=== PATIENT | male | born 1985 | race Caucasian/White ===

== ENCOUNTER 2018-09-28 15:48 | Emergency (ER) | payer SELFPAY ==
[2018-09-28 17:18] LABS: Absolute Lymphocytes (CBC) 0.4 K/uL (0.7-4.9); Absolute Monocytes 0.9 K/uL (0.1-1.3); Absolute Neutrophil 7.4 K/uL (1.8-8.0); Basophils % 0.7 % (0-1.3); Hematocrit 48.7 % (39.6-49.0); Lymphocytes % 4.4 % (15.3-44.8); MPV 7.5 fL (7.6-11.3); RBC Red Blood Cell Count 4.84 M/uL (4.33-5.43)
[2018-09-28] MEDS ORDERED: NA CHLORIDE 0.9% 1,000 ML ONE ×3 (17:19→22:07)
[2018-09-28] MEDS ORDERED: ONDANSETRON 4 MG/2 ML VIAL ONE (17:19)
[2018-09-28] MEDS ORDERED: MORPHINE 4 MG/ML SYR ONE ×2 (17:19→18:27)
[2018-09-28 17:41] LABS: ALT/SGPT 230 U/L (12-78); AST/SGOT 254 U/L (15-37); Albumin 4.4 g/dL (3.4-5.0); Alkaline Phosphatase 180 U/L (45-117); BUN Blood Urea Nitrogen 10 mg/dL (7-18); Bicarbonate 22 mmol/L (21-32); Bilirubin Direct 0.5 mg/dL (0-0.2); Bilirubin Total 1.2 mg/dL (0.2-1.0); Glucose Level 102 mg/dL (74-106); Lipase 17357 U/L (73-393); Protein, Total 8.4 g/dL (6.4-8.2); Sodium Level 137 mmol/L (136-145)
[2018-09-28 17:50] LABS: Potassium 2.9 mmol/L (3.5-5.1)
[2018-09-28] MEDS ORDERED: KCL 20 MEQ/100 mL IVPB 20 MEQ/100 ML BAG IV ONE (18:20)
[2018-09-28] MEDS ORDERED: PROMETHAZINE 25 MG/ML VIAL ONE (18:26)
[2018-09-28] MEDS ORDERED: LORazepam 2 MG/ML VIAL ONE ×5 (19:29→23:58)
[2018-09-28] MEDS ORDERED: NICOTINE 21 MG/PAT TD ONE (19:46)
--- NOTE | 2018-09-28 20:45 | RAD REPORT ---
EXAM DESCRIPTION: CTAbdomen Pelvis W Contrast - 09/28/2018 8:37 pm CLINICAL HISTORY: Abdominal pain. ABD PAIN COMPARISON: No comparisons TECHNIQUE: Biphasic CT imaging of the abdomen and pelvis was performed with 100 ml non-ionic IV cont rast. All CT scans are performed using dose optimization technique as appropriate and may include automated exposure control or mA/KV adjustment according to patient size. FINDINGS: The lung bases are clear.Small hiatal hernia is present. Prominent advanced fatty liver is seen with hepatomegaly. The spleen, adrenal glands and kidneys are within normal limits. Moderate inflammatory changes and edema seen involving the pancreas most compat ible with acute pancreatitis. No portal venous thrombus, pancreatic necrosis or evidence pancreatic p seudocyst. No bowel obstruction, free air or abscess. Mild ascites is seen. The appendix is normal. No evidence of significant lymphadenopathy. No suspicious bony findings. IMPRESSION: Moderately severe acute pancreatitis. No complication is seen. Hepatomegaly with advanced fatty liver.
--- NOTE | 2018-09-28 20:50 | EDPHYS ---
Physician Documentation [facility] Name: Jonathan Gutierrez Age: 32 yrs Sex: Male : 1985 Arrival Date: 09/28/2018 Time: 15:53 Bed 26 Private MD: None, None ED Physician Trenton Lubin HPI: 09/28 17:30 This 32 yrs old Male presents to ER via Ambulatory with complaints of pm1 Abdominal Pain. 17:30 The patient presents with abdominal pain in the periumbilical area. Onset: The pm1 symptoms/episode began/occurred this morning. The symptoms do not radiate. Associated signs and symptoms: Pertinent positives: nausea, vomiting, and diarrhea, Pertinent negatives: chest pain, dysuria, fever, shortness of breath. The symptoms are described as crampy, sharp. Modifying factors: The symptoms are alleviated by nothing, the symptoms are aggravated by nothing. Severity of pain: in the emergency department the pain is actually worse. The patient has not experienced similar symptoms in the past. The patient has not recently seen a physician. Historical: - Allergies: 16:37 No Known Allergies; aa5 - Home Meds: 16:37 None [Active]; aa5 - PMHx: 16:37 None; aa5 - PSHx: 16:37 None; aa5 - Immunization history:: Flu vaccine is not up to date. - Social history:: Smoking status: Patient uses tobacco products, smokes one pack cigarettes per day. - Ebola Screening: : No symptoms or risks identified at this time. ROS: 18:30 Constitutional: Negative for fever, chills, and weight loss, Eyes: Negative for injury, pm1 pain, redness, and discharge, ENT: Negative for injury, pain, and discharge, Neck: Negative for injury, pain, and swelling, Cardiovascular: Negative for chest pain, palpitations, and edema, Respiratory: Negative for shortness of breath, cough, wheezing, and pleuritic chest pain. 18:30 Back: Negative for injury and pain, : Negative for injury, bleeding, discharge, and swelling, MS/Extremity: Negative for injury and deformity, Skin: Negative for injury, rash, and discoloration, Neuro: Negative for headache, weakness, numbness, tingling, and seizure. 18:30 Abdomen/GI: Positive for abdominal pain, nausea, vomiting, and diarrhea, Negative for hematemesis, rectal bleeding. Exam: 18:30 Constitutional: This is a well developed, well nourished patient who is awake, alert, pm1 and in no acute distress. Head/Face: Normocephalic, atraumatic. Eyes: Pupils equal round and reactive to light, extra-ocular motions intact. Lids and lashes normal. Conjunctiva and sclera are non-icteric and not injected. Cornea within normal limits. Periorbital areas with no swelling, redness, or edema. ENT: Nares patent. No nasal discharge, no septal abnormalities noted. Tympanic membranes are normal and external auditory canals are clear. Oropharynx with no redness, swelling, or masses, exudates, or evidence of obstruction, uvula midline. Mucous membranes moist. Neck: Trachea midline, no thyromegaly or masses palpated, and no cervical lymphadenopathy. Supple, full range of motion without nuchal rigidity, or vertebral point tenderness. No Meningismus. Chest/axilla: Normal chest wall appearance and motion. Nontender with no deformity. No lesions are appreciated. Cardiovascular: Regular rate and rhythm with a normal S1 and S2. No gallops, murmurs, or rubs. Normal PMI, no JVD. No pulse deficits. Respiratory: Lungs have equal breath sounds bilaterally, clear to auscultation and percussion. No rales, rhonchi or wheezes noted. No increased work of breathing, no retractions or nasal flaring. 18:30 Back: No spinal tenderness. No costovertebral tenderness. Full range of motion. Skin: Warm, dry with normal turgor. Normal color with no rashes, no lesions, and no evidence of cellulitis. MS/ Extremity: Pulses equal, no cyanosis. Neurovascular intact. Full, normal range of motion. 18:30 Abdomen/GI: Inspection: abdomen appears normal, Bowel sounds: normal, Palpation: soft, moderate abdominal tenderness, in the right upper quadrant and left upper quadrant, mass, is not appreciated, rebound tenderness, is not appreciated. 18:30 Neuro: Orientation: is normal, Motor: is normal, moves all fours. Vital Signs: 16:37 BP 145 / 95; Pulse 126; Resp 18 S; Temp 97.1(TE); Pulse Ox 100% on R/A; Weight 70.31 kg aa5 (R); Height 5 ft. 11 in. (180.34 cm) (R); Pain 8/10; 17:51 BP 160 / 100; Pulse 100; Resp 18; Pulse Ox 98% on R/A; la1 18:27 BP 172 / 116; Pulse 107; Resp 18; Pulse Ox 98% on R/A; la1 19:40 BP 175 / 112; Pulse 113; Resp 18; Pulse Ox 98% on R/A; la1 20:33 BP 172 / 112; Pulse 117; Resp 18; Pulse Ox 98% on R/A; la1 20:50 BP 158 / 96; Pulse 123; Resp 20; Pulse Ox 98% on R/A; la1 22:12 BP 165 / 110; Pulse 133; Resp 18; Pulse Ox 100% on R/A; la1 22:19 Pulse 124; la1 23:12 BP 178 / 116; Pulse 126; Resp 18; Pulse Ox 98% on R/A; la1 09/29 00:19 BP 167 / 118; Pulse 136; Resp 24; Pulse Ox 99% on R/A; ra1 01:06 BP 160 / 115; Pulse 135; Resp 16; Pulse Ox 98% on R/A; la1 01:13 BP 163 / 117; Pulse 133; Resp 38; Pulse Ox 98% on R/A; ra1 01:45 BP 165 / 65; Pulse 138; Resp 20; Pulse Ox 98% on R/A; la1 09/28 16:37 Body Mass Index 21.62 (70.31 kg, 180.34 cm) aa MDM: 09/28 16:58 Patient medically screened. pm1 18:11 ED course: last drink of Vodka at 2100 yesterday. Has been drinking a pint of Vodka pm1 daily for the past 3-4 months. 20:48 Data reviewed: vital signs. Data interpreted: Pulse oximetry: on room air is 98 %. pm1 Interpretation: normal. Counseling: I had a detailed discussion with the patient and/or guardian regarding: the historical points, exam findings, and any diagnostic results supporting the discharge/admit diagnosis, lab results, radiology results, the need for further work-up and treatment in the hospital. 21:40 Physician consultation: Wilton Mancilla MD was called at 21:40, was contacted at 21:40, pm1 regarding patient's condition, after a discussion of the case, a recommendation for transfer for higher level of care is made, No ICU bed available and no GI butadiene converter helper. 22:19 Physician consultation: Adjustment Examiner ICU was contacted at 22:19, regarding regarding pm1 transfer, patient's condition, and will see patient. 09/28 17:03 Order name: Basic Metabolic Panel; Complete Time: 17:58 pm1 09/28 17:03 Order name: CBC with Diff; Complete Time: 17:22 pm1 09/28 17:03 Order name: Creatinine for Radiology; Complete Time: 17:44 pm1 09/28 17:03 Order name: Hepatic Function; Complete Time: 17:58 pm1 09/28 17:03 Order name: Lipase; Complete Time: 17:58 pm1 09/28 17:59 Order name: ETOH Level; Complete Time: 18:51 pm1 09/28 17:03 Order name: CT Abd/Pelvis - W/Contrast: PO and IV contrast; Complete Time: 20:48 pm1 09/28 17:03 Order name: IV Saline Lock; Complete Time: 17:13 pm1 09/28 17:03 Order name: Labs collected and sent; Complete Time: 17:13 pm1 Administered Medications: 17:13 Drug: NS 0.9% 1000 ml Route: IV; Rate: 1000 ml; Site: right antecubital; la1 19:50 Follow up: IV Status: Completed infusion la1 17:13 Drug: Zofran 4 mg Route: IVP; Site: right antecubital; la1 18:06 Follow up: Response: No adverse reaction la1 17:13 Drug: morphine 4 mg Route: IVP; Site: right antecubital; la1 18:05 Follow up: Response: No adverse reaction; Pain is decreased la1 18:25 Drug: Potassium Chloride 20 mEq Route: IV; Rate: calculated rate; Site: right la1 antecubital; 21:24 Follow up: IV Status: Completed infusion la1 18:26 Not Given (Duplicate Order): Phenergan 12.5 mg IVP once la1 18:26 Not Given (Duplicate Order): morphine 4 mg IVP once la1 18:26 Not Given (Duplicate Order): NS 0.9% 1000 ml IV at 125 ml/hr continuous la1 18:27 Drug: morphine 4 mg Route: IVP; Site: right antecubital; la1 19:51 Follow up: Response: No adverse reaction la1 18:27 Drug: Phenergan 12.5 mg Route: IVP; Site: right antecubital; la1 19:50 Follow up: Response: No adverse reaction la1 18:27 Drug: NS 0.9% 1000 ml Route: IV; Rate: 125 ml/hr; Site: right antecubital; la1 09/29 00:03 Follow up: IV Status: Infusion continued upon transfer la1 09/28 19:39 Drug: Ativan 1 mg Route: IVP; Site: left forearm; la1 19:50 Follow up: Response: No adverse reaction la1 19:40 Drug: Nicotine 21 mg/24 hr 1 patches Route: Transdermal; Site: anterior chest wall; la1 19:50 Drug: Ativan 1 mg Route: IVP; Site: left forearm; la1 19:51 Follow up: Response: No adverse reaction la1 20:40 Drug: Ativan 1 mg Route: IVP; Site: left antecubital; la1 21:25 Follow up: Response: No adverse reaction la1 21:10 Drug: Valium 5 mg Route: IVP; Site: left antecubital; la1 21:25 Follow up: Response: No adverse reaction la1 21:10 Drug: NS 0.9% 1000 ml Route: IV; Rate: 1000 ml; Site: left antecubital; la1 21:58 Follow up: IV Status: Completed infusion la1 21:23 Drug: Valium 5 mg Route: IVP; Site: left antecubital; la1 21:58 Follow up: Response: No adverse reaction la1 21:58 Drug: Ativan 2 mg Route: IVP; Site: left antecubital; la1 21:59 Follow up: Response: No adverse reaction la1 22:15 Follow up: Response: No adverse reaction; Patient is sedated ra1 22:10 Drug: Ativan 2 mg Route: IVP; Site: left antecubital; la1 09/29 00:01 Follow up: Response: No adverse reaction la1 00:01 Drug: Ativan 2 mg Route: IVP; Site: right hand; la1 00:15 Follow up: Response: No adverse reaction; Patient is sedated ra1 00:53 Drug: Ativan 2 mg Route: IVP; Site: right antecubital; fc 01:56 Follow up: Response: No adverse reaction la1 01:38 Drug: Ativan 4 mg Route: IVP; Site: right hand; la1 01:56 Follow up: Response: No adverse reaction la1 Disposition: 10:00 Co-signature as Attending Physician, Trenton Lubin MD. rn Disposition: 09/28/18 21:51 Transfer ordered to [facility]. Diagnosis are Alcohol dependence with withdrawal, Acute pancreatitis. - Reason for transfer: Higher level of care. - Accepting physician is [facility]. - Condition is Stable. - Problem is new. - Symptoms have improved. Signatures: Dispatcher [employer] EDMS Sho Jimenez RN RN Trenton Lubin MD MD rn Calderon, Audri, RN RN aa5 Charles Berger RN RN la1 Gaudencio Neely, HOT TAMALE WORKER HOT TAMALE WORKER pm1 Lyle Cortez RN ra1 Corrections: (The following items were deleted from the chart) 09/28 20:53 20:49 Hospitalization Ordered by Wilton Mancilla MD for Inpatient Admission. Preliminary pm1 diagnosis is Alcohol dependence with withdrawalAcute pancreatitis. Bed requested for Intensive Care Unit. Status is Inpatient Admission. Condition is Stable. Problem is new. Symptoms have improved. UTI on Admission? No. pm1 22:31 21:51 09/28/2018 21:51 Transfer ordered to [facility]. Diagnosis is pm1 Alcohol dependence with withdrawalAcute pancreatitis. Reason for transfer: Higher level of care. Accepting physician is [facility]. Condition is Fair. Problem is new. Symptoms have improved. pm1 09/29 01:57 09/28 22:31 09/28/2018 21:51 Transfer ordered to [facility]. la1 Diagnosis is Alcohol dependence with withdrawalAcute pancreatitis. Reason for transfer: Higher level of care. Accepting physician is [facility]. Condition is Stable. Problem is new. Symptoms have improved. pm1
--- NOTE | 2018-09-28 20:50 | ER ---
Nurse's Notes [facility] Name: Jonathan Gutierrez Age: 32 yrs Sex: Male : 1985 Arrival Date: 09/28/2018 Time: 15:53 Bed 26 Private MD: None, None Diagnosis: Acute pancreatitis;Alcohol dependence with withdrawal Presentation: 09/28 16:36 Presenting complaint: Patient states: umbilical pain with nausea/vomiting/diarrhea aa5 since this morning. Transition of care: patient was not received from another setting of care. Onset of symptoms was September 2018. Risk Assessment: Do you want to hurt yourself or someone else? Patient reports no desire to harm self or others. Initial Sepsis Screen: Does the patient meet any 2 criteria? No. Patient's initial sepsis screen is negative. Does the patient have a suspected source of infection? No. Patient's initial sepsis screen is negative. Care prior to arrival: None. 16:36 Method Of Arrival: Ambulatory aa5 16:36 Acuity: NEO 2 la1 Historical: - Allergies: 16:37 No Known Allergies; aa5 - Home Meds: 16:37 None [Active]; aa5 - PMHx: 16:37 None; aa5 - PSHx: 16:37 None; aa5 - Immunization history:: Flu vaccine is not up to date. - Social history:: Smoking status: Patient uses tobacco products, smokes one pack cigarettes per day. - Ebola Screening: : No symptoms or risks identified at this time. Screenin:15 Abuse screen: Denies threats or abuse. Nutritional screening: No deficits noted. la1 Tuberculosis screening: No symptoms or risk factors identified. Fall Risk None identified. Assessment: 17:14 General: Appears in no apparent distress. Behavior is calm, cooperative. Pain: la1 Complains of pain in abdomen. Neuro: Level of Consciousness is awake, alert, obeys commands, Oriented to person, place, time, situation. Cardiovascular: Capillary refill < 3 seconds Patient's skin is warm and dry. Respiratory: Airway is patent Respiratory effort is even, unlabored, Respiratory pattern is regular, symmetrical, Breath sounds are clear bilaterally. GI: Abdomen is round non-distended, Bowel sounds present X 4 quads. Abd is soft X 4 quads Abdomen is tender to palpation X 4 quads. Reports diarrhea, nausea, vomiting. : No signs and/or symptoms were reported regarding the genitourinary system. 18:28 Reassessment: Pt reports drinking 2-4 red solo cups full of vodka with no mixer daily la1 for the last three months, last drink was 2100 on 09/27. 19:41 Reassessment: Pt self D/C IV to right AC, was trying to go smoke, pt educated on la1 hospital policy and on his current medical condition, offered alternative of patch, pt appears agitated, shaky. ERP notified, new orders received and carried out. 20:33 Reassessment: pt having visual and auditory hallucinations, will not stay in stretcher, la1 attempting to walk around room and talking to people who are not present. 21:15 Reassessment: No changes from previously documented assessment. la1 22:00 Reassessment: Pt still agitated, hallucinating. ERP notified, new orders received and la1 carried out. 23:00 Reassessment: Pt resting in stretcher, eyes closed, respirations even and unlabored. la1 23:40 Reassessment: Pt again becoming agitated, sitting at end of bed, speech is la1 incomprehensible, pt voided x1 in stretcher. 09/29 00:40 Reassessment: Patient appears in no apparent distress at this time. resting in la1 stretcher, eyes closed, respirations even and unlabored. Vital Signs: 09/28 16:37 BP 145 / 95; Pulse 126; Resp 18 S; Temp 97.1(TE); Pulse Ox 100% on R/A; Weight 70.31 kg aa5 (R); Height 5 ft. 11 in. (180.34 cm) (R); Pain 8/10; 17:51 BP 160 / 100; Pulse 100; Resp 18; Pulse Ox 98% on R/A; la1 18:27 BP 172 / 116; Pulse 107; Resp 18; Pulse Ox 98% on R/A; la1 19:40 BP 175 / 112; Pulse 113; Resp 18; Pulse Ox 98% on R/A; la1 20:33 BP 172 / 112; Pulse 117; Resp 18; Pulse Ox 98% on R/A; la1 20:50 BP 158 / 96; Pulse 123; Resp 20; Pulse Ox 98% on R/A; la1 22:12 BP 165 / 110; Pulse 133; Resp 18; Pulse Ox 100% on R/A; la1 22:19 Pulse 124; la1 23:12 BP 178 / 116; Pulse 126; Resp 18; Pulse Ox 98% on R/A; la1 09/29 00:19 BP 167 / 118; Pulse 136; Resp 24; Pulse Ox 99% on R/A; ra1 01:06 BP 160 / 115; Pulse 135; Resp 16; Pulse Ox 98% on R/A; la1 01:13 BP 163 / 117; Pulse 133; Resp 38; Pulse Ox 98% on R/A; ra1 01:45 BP 165 / 65; Pulse 138; Resp 20; Pulse Ox 98% on R/A; la1 09/28 16:37 Body Mass Index 21.62 (70.31 kg, 180.34 cm) aa5 ED Course: 09/28 15:53 Patient arrived in ED. mr 15:53 None, None is Private Physician. mr 16:36 Triage completed. aa5 16:36 Arm band placed on. aa5 16:57 Charles Berger, AMALIA is Primary Nurse. la1 16:58 Gaudencio Neely NP is PHCP. pm1 16:58 Trenton Lubin MD is Attending Physician. pm1 17:05 Inserted saline lock: 20 gauge in right antecubital area, using aseptic technique. jp3 Blood collected. 17:05 Initial lab(s) drawn, by [facility], sent to lab. jp3 17:13 Bed in low position. Call light in reach. Side rails up X 1. Warm blanket given. Pillow jp3 given. Pulse ox on. NIBP on. 17:13 Basic Metabolic Panel Sent. jp3 17:13 CBC with Diff Sent. jp3 17:13 Creatinine for Radiology Sent. jp3 17:13 Hepatic Function Sent. jp3 17:13 Lipase Sent. jp3 20:37 CT Abd/Pelvis - W/Contrast: PO and IV contrast In Process Unspecified. EDMS 20:49 Wilton Mancilla MD is Hospitalizing Provider. pm1 09/29 01:57 No provider procedures requiring assistance completed. Patient transferred, IV remains la1 in place. Administered Medications: 09/28 17:13 Drug: NS 0.9% 1000 ml Route: IV; Rate: 1000 ml; Site: right antecubital; la1 19:50 Follow up: IV Status: Completed infusion la1 17:13 Drug: Zofran 4 mg Route: IVP; Site: right antecubital; la1 18:06 Follow up: Response: No adverse reaction la1 17:13 Drug: morphine 4 mg Route: IVP; Site: right antecubital; la1 18:05 Follow up: Response: No adverse reaction; Pain is decreased la1 18:25 Drug: Potassium Chloride 20 mEq Route: IV; Rate: calculated rate; Site: right la1 antecubital; 21:24 Follow up: IV Status: Completed infusion la1 18:26 Not Given (Duplicate Order): Phenergan 12.5 mg IVP once la1 18:26 Not Given (Duplicate Order): morphine 4 mg IVP once la1 18:26 Not Given (Duplicate Order): NS 0.9% 1000 ml IV at 125 ml/hr continuous la1 18:27 Drug: morphine 4 mg Route: IVP; Site: right antecubital; la1 19:51 Follow up: Response: No adverse reaction la1 18:27 Drug: Phenergan 12.5 mg Route: IVP; Site: right antecubital; la1 19:50 Follow up: Response: No adverse reaction la1 18:27 Drug: NS 0.9% 1000 ml Route: IV; Rate: 125 ml/hr; Site: right antecubital; la1 09/29 00:03 Follow up: IV Status: Infusion continued upon transfer la1 09/28 19:39 Drug: Ativan 1 mg Route: IVP; Site: left forearm; la1 19:50 Follow up: Response: No adverse reaction la1 19:40 Drug: Nicotine 21 mg/24 hr 1 patches Route: Transdermal; Site: anterior chest wall; la1 19:50 Drug: Ativan 1 mg Route: IVP; Site: left forearm; la1 19:51 Follow up: Response: No adverse reaction la1 20:40 Drug: Ativan 1 mg Route: IVP; Site: left antecubital; la1 21:25 Follow up: Response: No adverse reaction la1 21:10 Drug: Valium 5 mg Route: IVP; Site: left antecubital; la1 21:25 Follow up: Response: No adverse reaction la1 21:10 Drug: NS 0.9% 1000 ml Route: IV; Rate: 1000 ml; Site: left antecubital; la1 21:58 Follow up: IV Status: Completed infusion la1 21:23 Drug: Valium 5 mg Route: IVP; Site: left antecubital; la1 21:58 Follow up: Response: No adverse reaction la1 21:58 Drug: Ativan 2 mg Route: IVP; Site: left antecubital; la1 21:59 Follow up: Response: No adverse reaction la1 22:15 Follow up: Response: No adverse reaction; Patient is sedated ra1 22:10 Drug: Ativan 2 mg Route: IVP; Site: left antecubital; la1 09/29 00:01 Follow up: Response: No adverse reaction la1 00:01 Drug: Ativan 2 mg Route: IVP; Site: right hand; la1 00:15 Follow up: Response: No adverse reaction; Patient is sedated ra1 00:53 Drug: Ativan 2 mg Route: IVP; Site: right antecubital; fc 01:56 Follow up: Response: No adverse reaction la1 01:38 Drug: Ativan 4 mg Route: IVP; Site: right hand; la1 01:56 Follow up: Response: No adverse reaction la1 Outcome: 09/28 20:49 Decision to Hospitalize by Provider. pm1 21:51 ER care complete, transfer ordered by MD. pm1 09/29 01:57 Transferred Transfer form completed. X-rays sent w/ patient. la1 Condition: stable Instructed on the need for transfer. 01:57 Patient left the ED. la1 Signatures: Dispatcher [employer] RACHEAL MaldoandoMarilu granda mr JimenezSho RN RN fc Calderon, Audri, RN RN aa5 Charles Berger RN RN la1 Gaudencio Neely, BUSINESS OPERATIONS CONSULTANT BUSINESS OPERATIONS CONSULTANT pm1 Jose Luis Chandler jp3 Lyle Cortez RN RN ra1 Corrections: (The following items were deleted from the chart) 09/28 18:27 16:36 Acuity: NEO 3 aa5 la1 20:51 20:50 BP 158 / 96; Pulse 133bpm; Resp 20bpm; Pulse Ox 98% RA; la1 la1
[2018-09-28] MEDS ORDERED: DIAZEPAM 10 MG/2 ML INJ SYRINGE ONE (21:13)
[2018-09-29] MEDS ORDERED: LORazepam 2 MG/ML VIAL ONE ×2 (01:01→01:37)
[2018-09-29 02:16] VITALS: TEMP 97.1
[2018-09-29 02:33] VITALS: O2SAT 98
[2018-09-29 02:36] VITALS: BP 165/65
== END 2018-09-29 01:57 | disposition short-term general hospital (02) ==
LOC: ER 15:48
DX: F10.239 Alcohol dependence with withdrawal, unspecified (principal); K85.90 Acute pancreatitis without necrosis or infection, unspecified; F17.210 Nicotine dependence, cigarettes, uncomplicated
CPT/HCPCS: 36415; 74177; 80048; 80076; 80320; 83690; 85025; 99285; J2405; J2550; J3360; J7030; Q9967

== ENCOUNTER 2018-10-27 16:19 | Emergency (ER) | payer SELFPAY ==
--- OUTSIDE RECORDS SUMMARY | 2018-10-27 16:22 | XMS REPORT | Clinical Summary ---
:1985 Author Organization [facility] Address [address] [place] [address] Care Team Providers Name Role Phone Pcp, No Primary Care Provider Unavailable Allergies No Known Allergies Medications Medication Sig Dispensed Refills Start Date End Date Status lisinopril Take 1 tablet 30 tablet 0 10/03/2018 11/02/2018 Active (PRINIVIL,ZESTRIL) (20 mg total) 20 MG tablet by mouth daily for 30 days. multivitamin Take 1 tablet 30 tablet 0 10/03/2018 11/02/2018 Active (THERAGRAN) tablet by mouth daily for 30 days. thiamine 100 MG Take 1 tablet 30 tablet 0 10/03/2018 10/03/2019 Active tablet (100 mg total) by mouth daily. folic acid Take 1 tablet 30 tablet 0 10/03/2018 11/02/2018 Active (FOLVITE) 1 MG (1 mg total) tablet by mouth daily for 30 days. LORazepam (ATIVAN) Take 1 tablet 5 tablet 0 10/02/2018 Active 0.5 MG tablet (0.5 mg total) by mouth every 6 (six) hours as needed for Anxiety. Max Daily Amount: 2 mg LORazepam (ATIVAN) Take 1 tablet 30 tablet 0 10/02/2018 10/02/2018 Discontinued 0.5 MG tablet (0.5 mg total) by mouth every 6 (six) hours as needed for Anxiety for up to 5 days. Max Daily Amount: 2 mg Active Problems Problem Noted Date Uncontrolled hypertension 10/02/2018 Alcohol withdrawal 09/29/2018 Alcohol-induced acute pancreatitis 09/29/2018 Acute metabolic encephalopathy 09/29/2018 Encounters Date Type Specialty Care Team Description 09/29/2018 - Hospital General Internal Valarie Cannon MD Alcohol withdrawal syndrome, with delirium (HCC); 10/02/2018 Encounter Medicine Jonathan Mccurdy Alcohol-induced acute pancreatitis, unspecified complication status; MD Natacha Acute metabolic encephalopathy; Maribeth Whalen MD Colitis; Acute alcoholic hepatitis; Alcohol-induced acute pancreatitis without infection or necrosis; Electrolyte disturbance; Essential hypertension; Uncontrolled hypertension 09/29/2018 Orders Only General Internal Medicine after 10/26/2017 Social History Tobacco Use Types Packs/Day Years Used Date Never Assessed Sex Assigned at Date Recorded Not on file Job Start Date Occupation Industry Not on file Not on file Not on file Travel History Travel Start Travel End No recent travel history available. Last Filed Vital Signs Vital Sign Reading Time Taken Blood Pressure 143/95 10/02/2018 2:13 PM CDT Pulse 99 10/02/2018 2:13 PM CDT Temperature 36.3 C (97.4 F) 10/02/2018 2:13 PM CDT Respiratory Rate 16 10/02/2018 2:13 PM CDT Oxygen Saturation 100% 10/02/2018 2:13 PM CDT Inhaled Oxygen Concentration - - Weight 70.2 kg (154 lb 12.2 oz) 10/02/2018 6:00 AM CDT Height 182.9 cm (6') 09/29/2018 2:48 AM CDT Body Mass Index 20.99 10/02/2018 6:00 AM CDT Plan of Treatment Not on file Procedures Procedure Name Priority Date/Time Associated Comments Diagnosis RHYTHM STRIP - SCAN 10/03/2018 1:41 PM CDT POCT-GLUCOSE METER Routine 10/02/2018 12:12 Results for this PM CDT procedure are in the results section. CBC W/PLT COUNT & AUTO Routine 10/02/2018 4:57 Results for this DIFFERENTIAL AM CDT procedure are in the results section. MAGNESIUM Routine 10/02/2018 4:57 Results for this AM CDT procedure are in the results section. COMPREHENSIVE Routine 10/02/2018 4:57 Results for this METABOLIC PANEL AM CDT procedure are in the results section. CBC W/PLT COUNT & AUTO Routine 10/02/2018 4:57 Results for this DIFFERENTIAL AM CDT procedure are in the results section. POCT-GLUCOSE METER Routine 2018 11:52 Results for this AM CDT procedure are in the results section. CBC W/PLT COUNT & AUTO Routine 2018 4:59 Results for this DIFFERENTIAL AM CDT procedure are in the results section. LACTIC ACID, VENOUS Routine 2018 4:59 Results for this AM CDT procedure are in the results section. PHOSPHORUS Routine 2018 4:59 Results for this AM CDT procedure are in the results section. MAGNESIUM Routine 2018 4:59 Results for this AM CDT procedure are in the results section. COMPREHENSIVE Routine 2018 4:59 Results for this METABOLIC PANEL AM CDT procedure are in the results section. CBC W/PLT COUNT & AUTO Routine 2018 4:59 Results for this DIFFERENTIAL AM CDT procedure are in the results section. POCT-GLUCOSE METER Routine 09/30/2018 6:23 Results for this PM CDT procedure are in the results section. PHOSPHORUS Routine 09/30/2018 5:18 Results for this PM CDT procedure are in the results section. MAGNESIUM Routine 09/30/2018 5:18 Results for this PM CDT procedure are in the results section. BASIC METABOLIC PANEL Routine 09/30/2018 5:18 Results for this (7) PM CDT procedure are in the results section. BASIC METABOLIC PANEL Routine 09/30/2018 4:22 Results for this (7) PM CDT procedure are in the results section. PHOSPHORUS Routine 09/30/2018 4:22 Results for this PM CDT procedure are in the results section. MAGNESIUM Routine 09/30/2018 4:22 Results for this PM CDT procedure are in the results section. POCT-GLUCOSE METER Routine 09/30/2018 12:40 Results for this PM CDT procedure are in the results section. POCT-GLUCOSE METER Routine 09/30/2018 6:26 Results for this AM CDT procedure are in the results section. PHOSPHORUS Routine 09/30/2018 6:23 Results for this AM CDT procedure are in the results section. MAGNESIUM Routine 09/30/2018 6:23 Results for this AM CDT procedure are in the results section. COMPREHENSIVE Routine 09/30/2018 6:23 Results for this METABOLIC PANEL AM CDT procedure are in the results section. US ABDOMEN LIMITED Routine 09/30/2018 5:40 Results for this AM CDT procedure are in the results section. CBC W/PLT COUNT & AUTO Routine 09/30/2018 3:50 Results for this DIFFERENTIAL AM CDT procedure are in the results section. LACTIC ACID, VENOUS STAT 09/30/2018 3:50 Results for this AM CDT procedure are in the results section. CBC W/PLT COUNT & AUTO Routine 09/30/2018 3:50 Results for this DIFFERENTIAL AM CDT procedure are in the results section. POCT-GLUCOSE METER Routine 09/30/2018 12:14 Results for this AM CDT procedure are in the results section. PROCALCITONIN STAT 09/30/2018 12:14 Results for this AM CDT procedure are in the results section. LACTIC ACID, VENOUS STAT 09/30/2018 12:14 Results for this AM CDT procedure are in the results section. MAGNESIUM STAT 09/30/2018 12:14 Results for this AM CDT procedure are in the results section. BASIC METABOLIC PANEL STAT 09/30/2018 12:14 Results for this (7) AM CDT procedure are in the results section. POCT-GLUCOSE METER Routine 09/29/2018 6:21 Results for this PM CDT procedure are in the results section. MAGNESIUM STAT 09/29/2018 2:14 Results for this PM CDT procedure are in the results section. POTASSIUM Routine 09/29/2018 2:14 Results for this PM CDT procedure are in the results section. CT ABDOMEN/PELVIS STAT 09/29/2018 12:30 Results for this WITH/WITHOUT IV PM CDT procedure are in CONTRAST the results section. POCT-GLUCOSE METER Routine 09/29/2018 11:41 Results for this AM CDT procedure are in the results section. CBC W/PLT COUNT & AUTO Routine 09/29/2018 3:51 Results for this DIFFERENTIAL AM CDT procedure are in the results section. TRIGLYCERIDES CRYSTAL 09/29/2018 3:51 Results for this AM CDT procedure are in the results section. LIPASE Routine 09/29/2018 3:51 Results for this AM CDT procedure are in the results section. PHOSPHORUS Routine 09/29/2018 3:51 Results for this AM CDT procedure are in the results section. MAGNESIUM Routine 09/29/2018 3:51 Results for this AM CDT procedure are in the results section. COMPREHENSIVE Routine 09/29/2018 3:51 Results for this METABOLIC PANEL AM CDT procedure are in the results section. PROTHROMBIN TIME/INR Routine 09/29/2018 3:51 Results for this AM CDT procedure are in the results section. CBC W/PLT COUNT & AUTO Routine 09/29/2018 3:51 Results for this DIFFERENTIAL AM CDT procedure are in the results section. ECG 12-LEAD Routine 09/29/2018 3:45 AM CDT Procedure Note - Interface, External Ris In - 09/29/2018 6:57 AM CDT Ventricular Rate 155 BPM Atrial Rate 155 BPM P-R Interval 120 ms QRS Duration 88 ms Q-T Interval 326 ms QTC Calculation(Bazett) 523 ms P [place] 60 degrees R [place] 81 degrees T [place] 13 degrees Sinus tachycardia Cannot rule out Anterior infarct , age undetermined T wave abnormality, consider inferolateral ischemia Abnormal ECG No previous ECGs available ECG 12-LEAD Routine 09/29/2018 3:45 AM CDT after 10/26/2017 Results RHYTHM STRIP - SCAN (10/03/2018 1:41 PM CDT) Narrative Performed At POC-Glucose meter (10/02/2018 12:12 PM CDT)Only the most recent of8 resultswithin the time period is included. POC-Glucose Meter 99Comment: TESTED AT 70 - 110 mg/dL [facility] [address] [facility] [id number] Specimen Blood Performing Organization Address City/State/Zipcode Phone Number [address] [address] CENTER CBC with platelet count + automated diff (10/02/2018 4:57 AM CDT)Only the most recent of4 resultswithin the time period is included. WBC 5.1 3.5 - 10.5 K/L [facility] RBC 3.81 (L) 4.63 - 6.08 M/L [facility] Hemoglobin 13.1 (L) 13.7 - 17.5 GM/DL [facility] Hematocrit 37.6 (L) 40.1 - 51.0 % [facility] MCV 98.7 (H) 79.0 - 92.2 fL [facility] MCH 34.4 (H) 25.7 - 32.2 pg [facility] MCHC 34.8 32.3 - 36.5 GM/DL [facility] RDW 11.5 (L) 11.6 - 14.4 % [facility] Platelets 152 150 - 450 K/CU MM [facility] MPV 10.2 9.4 - 12.4 fL [facility] nRBC 0 0 - 0 /100 WBC [facility] % Neutros 71 % [facility] % Lymphs 14 % [facility] % Monos 11 % [facility] % Eos 2 % [facility] % Baso 1 % [facility] # Neutros 3.66 1.78 - 5.38 K/L [facility] # Lymphs 0.71 (L) 1.32 - 3.57 K/L [facility] # Monos 0.58 0.30 - 0.82 K/L [facility] # Eos 0.10 0.04 - 0.54 K/L [facility] # Baso 0.04 0.01 - 0.08 K/L [facility] Immature Granulocytes-Relative 1 0 - 1 % [facility] Specimen Blood - Arm, Right Performing Organization Address City/State/Zipcode Phone Number [facility] [address] [place] [address] CENTER Magnesium (10/02/2018 4:57 AM CDT)Only the most recent of8 resultswithin the time period is included. Magnesium 1.8 1.6 - 2.6 mg/dL [facility] Specimen Blood - Arm, Right Performing Organization Address City/State/Zipcode Phone Number [facility] [address] [place] [address] [phone] CENTER Comprehensive metabolic panel (10/02/2018 4:57 AM CDT)Only the most recent of4 resultswithin the time period is included. Protein, Total 6.6 6.0 - 8.3 gm/dL [facility] Albumin 3.6 3.5 - 5.0 g/dL [facility] Alkaline Phosphatase 149 40 - 150 U/L [facility] Total Bilirubin 0.8 0.2 - 1.2 mg/dL [facility] Sodium 135 (L) 136 - 145 meq/L [facility] Potassium 3.6 3.5 - 5.1 meq/L [facility] Chloride 98 98 - 107 meq/L [facility] CO2 26 22 - 29 meq/L [facility] BUN 8 7 - 21 mg/dL [facility] Creatinine 0.57 0.57 - 1.25 mg/dL [facility] Glucose 100 70 - 105 mg/dL [facility] Calcium 9.5 8.4 - 10.2 mg/dL [facility] AST 155 (H) 5 - 34 U/L [facility] ALT 151 (H) 6 - 55 U/L [facility] EGFR 166Comment: ESTIMATED mL/min/1.73 sq m [facility] GFR IS NOT ACCURATE [facility] CREATININE CLEARANCE IN PREDICTING GLOMERULAR FILTRATION RATE. ESTIMATED GFR IS NOT APPLICABLE FOR DIALYSIS PATIENTS. Specimen Blood - Arm, Right Performing Organization Address City/State/Zipcode Phone Number [facility] [address] [place], [place] [id number] [phone] CENTER Lactic acid, venous, Daily (2018 4:59 AM CDT)Only the most recent of3 resultswithin the time period is included. Lactate, Venous 1.0 0.5 - 2.2 mmol/L [facility] Specimen Blood Performing Organization Address City/[facility]/Zipcode Phone Number [address] [address] [place] Phosphorus (2018 4:59 AM CDT)Only the most recent of5 resultswithin the time period is included. Phosphorus 2.3 2.3 - 4.7 mg/dL [facility] Specimen Blood Performing Organization Address [facility] Centercode Phone Number [address] [address] [place] Basic Metabolic Panel (09/30/2018 5:18 PM CDT)Only the most recent of3 resultswithin the time period is included. Sodium 137 136 - 145 meq/L [facility] Potassium 3.6 3.5 - 5.1 meq/L [facility] Chloride 102 98 - 107 meq/L [facility] CO2 26 22 - 29 meq/L [facility] BUN 4 (L) 7 - 21 mg/dL [facility] Creatinine 0.54 (L) 0.57 - 1.25 mg/dL [facility] Glucose 123 (H) 70 - 105 mg/dL [facility] Calcium 8.7 8.4 - 10.2 mg/dL [facility] EGFR 177Comment: ESTIMATED GFR IS mL/min/1.73 sq m [facility] NOT ACCURATE [facility] CLEARANCE IN PREDICTING GLOMERULAR FILTRATION RATE. ESTIMATED GFR IS NOT APPLICABLE FOR DIALYSIS PATIENTS. Specimen Blood - Arm, Right Performing Organization Address [facility] Centercode Phone Number [address] [address] [place] US abdomen limited (09/30/2018 5:40 AM CDT) Narrative Performed At FINAL REPORT [facility] Right upper quadrant abdominal ultrasound, 09/30/2018. History: Cirrhosis. Comparison: No ultrasound comparisons available for review. Comparison is made to CT dated yesterday. Discussion: Transverse and longitudinal images of the right upper quadrant of the abdomen were obtained. The liver is enlarged measuring 22 cm in length along the right midclavicular line. There is increased echogenicity of the liver. There is no evidence of a focal hepatic mass. The portal vein is patent with hepatopetal flow. The portal vein is increased in diameter measuring 15 mm. The biliary tree is within normal limits with the common bile duct measuring 6 mm in diameter. The gallbladder does not contain gallstones. There is a trace amount of pericholecystic fluid. The sonographic Carreon's sign was negative. The right kidney is normal in size and echogenicity without evidence of hydronephrosis, stones, or mass and measures 11.5 cm in length. The pancreas is obscured by bowel gas.There is no evidence of free fluid. IMPRESSION: 1. Hepatomegaly with hepatic steatosis. 2. Trace pericholecystic fluid which is likely related to pancreatitis. 3. Mild prominence of the portal vein measuring up to 15 mm in diameter which may be secondary to portal hypertension. Signed: Juan Ramos MD Report Verified Date/Time:09/30/2018 08:05:48 Reading Location: [address] Ultrasound Reading Room Procedure Note Interface, External Ris In - 09/30/2018 8:08 AM CDT FINAL REPORT Right upper quadrant abdominal ultrasound, 09/30/2018. History: Cirrhosis. Comparison: No ultrasound comparisons available for review. Comparison is made to CT dated yesterday. Discussion: Transverse and longitudinal images of the right upper quadrant of the abdomen were obtained. The liver is enlarged measuring 22 cm in length along the right midclavicular line. There is increased echogenicity of the liver. There is no evidence of a focal hepatic mass. The portal vein is patent with hepatopetal flow. The portal vein is increased in diameter measuring 15 mm. The biliary tree is within normal limits with the common bile duct measuring 6 mm in diameter. The gallbladder does not contain gallstones. There is a trace amount of pericholecystic fluid. The sonographic Carreon's sign was negative. The right kidney is normal in size and echogenicity without evidence of hydronephrosis, stones, or mass and measures 11.5 cm in length. The pancreas is obscured by bowel gas. There is no evidence of free fluid. IMPRESSION: 1. Hepatomegaly with hepatic steatosis. 2. Trace pericholecystic fluid which is likely related to pancreatitis. 3. Mild prominence of the portal vein measuring up to 15 mm in diameter which may be secondary to portal hypertension. Signed: Juan Ramos MD Report Verified Date/Time: 09/30/2018 08:05:48 Reading Location: [address] Ultrasound Reading Room Performing Organization Address City/[facility]/[employer] Phone Number [employer] Procalcitonin (09/30/2018 12:14 AM CDT) Procalcitonin 0.48 (H) <0.05 ng/mL [facility] Specimen Blood - Arm, Left Narrative Performed At SEPSIS RISK (ng/mL) [facility] Low:0.05-0.50 Intermediate: 0.51-2.00 High: >=2.01 Performing Organization Address [facility] CenterCamerborntx Phone Number [address] [address] [place] Potassium (09/29/2018 2:14 PM CDT) Potassium 3.4 (L) 3.5 - 5.1 meq/L [facility] Specimen Blood - Line, Venous Performing Organization Address [facility] CenterFullCircle [employer] Phone Number [address] [address] [phone] abdomen/pelvis without & with IV contrast (09/29/2018 12:30 PM CDT) Narrative Performed At FINAL REPORT [employer] CT abdomen with and without contrast. CT pelvis with contrast. INDICATION: Pancreatitis COMPARISON: No prior studies available for comparison. TECHNIQUE: Multiple contiguous transaxial images of the abdomen were obtained before and after the administration of intravenous contrast. Postcontrast images were obtained during the arterial, portal venous, and delayed phases. Multiple contiguous transaxial images of the pelvis were obtained after the administration of intravenous contrast. This exam was performed according to our departmental dose optimization program which includes automated exposure control, adjustment of the mA and/or kV according to patient size and/or use of iterative reconstructive technique. FINDINGS: The lung bases demonstrate a small left pleural effusion. The osseous structures demonstrate mild degenerative change. The liver is markedly enlarged measuring 25 cm in craniocaudal dimension and diffusely fatty. The gallbladder is mildly distended without radiopaque stone or biliary dilatation. The spleen and adrenal glands are unremarkable. The pancreas demonstrates diffuse edematous change with surrounding inflammatory changes, consistent with acute pancreatitis. There is no pancreatic necrosis or pseudocyst. There is a small amount of ascites. There is marked peripancreatic edema and fluid which appear disorganized. There is a small hiatus hernia. The hepatic veins, portal vein, SMV and splenic vein are patent. The kidneys demonstrate punctate nonobstructing bilateral renal calculi a nonspecific linear hyperdensity of unclear clinical significance. There is no hydronephrosis. The urinary bladder demonstrates excreted contrast. There is a small amount of pelvic ascites. There is no bowel obstruction or perforation. There is nonspecific wall thickening of the colonic loops, for which underlying colitis cannot be excluded. The appendix appear unremarkable. Scattered subcentimeter lymph nodes are seen in the mesentery and retroperitoneum. IMPRESSION: 1. CT findings consistent with acute pancreatitis as above. 2. Hepatomegaly and marked hepatic steatosis. 3. Small amount of ascites. 4. Small hiatus hernia. 5. Punctate nonobstructing bilateral renal calculi. 6. Nonspecific colonic wall thickening for which underlying colitis cannot be excluded. Signed: Gavin Gómez MD Report Verified Date/Time:09/29/2018 12:38:07 Reading Location: [address] Consult Reading Room Procedure Note Interface, External Ris In - 09/29/2018 12:40 PM CDT FINAL REPORT CT abdomen with and without contrast. CT pelvis with contrast. INDICATION: Pancreatitis COMPARISON: No prior studies available for comparison. TECHNIQUE: Multiple contiguous transaxial images of the abdomen were obtained before and after the administration of intravenous contrast. Postcontrast images were obtained during the arterial, portal venous, and delayed phases. Multiple contiguous transaxial images of the pelvis were obtained after the administration of intravenous contrast. This exam was performed according to our departmental dose optimization program which includes automated exposure control, adjustment of the mA and/or kV according to patient size and/or use of iterative reconstructive technique. FINDINGS: The lung bases demonstrate a small left pleural effusion. The osseous structures demonstrate mild degenerative change. The liver is markedly enlarged measuring 25 cm in craniocaudal dimension and diffusely fatty. The gallbladder is mildly distended without radiopaque stone or biliary dilatation. The spleen and adrenal glands are unremarkable. The pancreas demonstrates diffuse edematous change with surrounding inflammatory changes, consistent with acute pancreatitis. There is no pancreatic necrosis or pseudocyst. There is a small amount of ascites. There is marked peripancreatic edema and fluid which appear disorganized. There is a small hiatus hernia. The hepatic veins, portal vein, SMV and splenic vein are patent. The kidneys demonstrate punctate nonobstructing bilateral renal calculi a nonspecific linear hyperdensity of unclear clinical significance. There is no hydronephrosis. The urinary bladder demonstrates excreted contrast. There is a small amount of pelvic ascites. There is no bowel obstruction or perforation. There is nonspecific wall thickening of the colonic loops, for which underlying colitis cannot be excluded. The appendix appear unremarkable. Scattered subcentimeter lymph nodes are seen in the mesentery and retroperitoneum. IMPRESSION: 1. CT findings consistent with acute pancreatitis as above. 2. Hepatomegaly and marked hepatic steatosis. 3. Small amount of ascites. 4. Small hiatus hernia. 5. Punctate nonobstructing bilateral renal calculi. 6. Nonspecific colonic wall thickening for which underlying colitis cannot be excluded. Signed: Gavin Gómez MD Report Verified Date/Time: 09/29/2018 12:38:07 Reading Location: [facility] [id number] [facility] Consult Reading Room Performing Organization Address City/State/Zipcode Phone Number [facility] Prothrombin time/INR (09/29/2018 3:51 AM CDT) Protime 14.6 11.7 - 14.7 seconds [facility] INR 1.1 <=5.9 [facility] Specimen Blood - Arm, Right Narrative Performed At RECOMMENDED COUMADIN/WARFARIN INR THERAPY [facility] RANGES STANDARD DOSE: 2.0 - 3.0 Includes: PROPHYLAXIS for venous thrombosis, systemic embolization; TREATMENT for venous thrombosis and/or pulmonary embolus. HIGH RISK: Target INR is 2.5-3.5 for patients with mechanical heart valves. Performing Organization Address City/[facility] Centercode Phone Number [address] [address] CENTER Triglycerides (09/29/2018 3:51 AM CDT) Triglycerides 71Comment: Specimen slightly mg/dL [facility] hemolyzed [facility] Specimen Blood - Arm, Right Narrative Performed At TRIGLYCERIDE REFERENCE RANGE [facility] Low Risk<150 Borderline Risk 150-199 High Itkm110-707 Very High Risk >=500 Performing Organization Address [facility] Centercotx Phone Number [address] [address] CENTER Lipase (09/29/2018 3:51 AM CDT) Lipase >1200 (H) 8 - 78 U/L [facility] [facility] Specimen Blood - Arm, Right Performing Organization Address [facility] [place] Phone Number [address] [address] [place] ECG 12 lead (09/29/2018 3:45 AM CDT) Narrative Performed At Ventricular Rate 155 BPM GE MUSE Atrial Rate 155 BPM P-R Interval 120 ms QRS Duration 88 ms Q-T Interval 326 ms QTC Calculation(Bazett) 523 ms P [place] 60 degrees R [place] 81 degrees T [place] 13 degrees Sinus tachycardia Cannot rule out Anterior infarct , age undetermined T wave abnormality, consider inferolateral ischemia Abnormal ECG No previous ECGs available Confirmed by MD Rosado Roberto ([id number]) on 09/29/2018 2:19:06 PM Procedure Note Interface, External Ris In - 09/29/2018 2:19 PM CDT Ventricular Rate 155 BPM Atrial Rate 155 BPM P-R Interval 120 ms QRS Duration 88 ms Q-T Interval 326 ms QTC Calculation(Bazett) 523 ms P [place] 60 degrees R [place] 81 degrees T [place] 13 degrees Sinus tachycardia Cannot rule out Anterior infarct , age undetermined T wave abnormality, consider inferolateral ischemia Abnormal ECG No previous ECGs available Confirmed by MD Rosado Roberto ([id number]) on 09/29/2018 2:19:06 PM Performing Organization Address City/State/Zipcode Phone Number GE MUSE after 10/26/2017 Advance Directives For more information, please contact:[address] [phone] Code Status Date Activated Date Inactivated Comments Full Code 09/29/2018 3:15 AM 10/02/2018 6:49 PM This code status was determined by: Patient
--- OUTSIDE RECORDS SUMMARY | 2018-10-27 16:23 | XMS REPORT ---
:1985 Author Organization [facility] Address [address] [place] [address] Dr. Romano [address] [place] [address] Care Team Providers Name Role Phone ИВАН REMY Unavailable Unavailable Problems This patient has no known problems. Allergies, Adverse Reactions, Alerts This patient has no known allergies or adverse reactions. Medications This patient has no known medications. Results Test Description Test Time Test Comments Text Results Atomic Results Result Comments POCT-GLUCOSE METER 2018-10-02 12:15:00 Test Item Value Reference Range Comments POC-GLUCOSE METER (BEAKER) (test 99 mg/dL 70-110 TESTED AT [facility] [address] [facility] kcdr=8804) [facility] [address] [id number] 06:15:00 Test Item Value Reference Range Comments MAGNESIUM (BEAKER) (test bvzg=645) 1.8 mg/dL 1.6-2.6 COMPREHENSIVE METABOLIC [id number] 06:15:00 Test Item Value Reference Range Comments TOTAL PROTEIN (BEAKER) 6.6 gm/dL 6.0-8.3 (test glda=698) ALBUMIN (BEAKER) (test 3.6 g/dL 3.5-5.0 nwmi=2773) ALKALINE PHOSPHATASE 149 U/L 40-150 (BEAKER) (test yuhe=776) BILIRUBIN TOTAL (BEAKER) 0.8 mg/dL 0.2-1.2 (test fvpf=476) SODIUM (BEAKER) (test 135 meq/L 136-145 bggr=344) POTASSIUM (BEAKER) (test 3.6 meq/L 3.5-5.1 ebiv=083) CHLORIDE (BEAKER) (test 98 meq/L 98-107 flae=242) CO2 (BEAKER) (test 26 meq/L 22-29 vkpe=632) BLOOD UREA NITROGEN 8 mg/dL 7-21 (BEAKER) (test hyql=163) CREATININE (BEAKER) (test 0.57 mg/dL 0.57-1.25 gngg=806) GLUCOSE RANDOM (BEAKER) 100 mg/dL 70-105 (test xthr=738) CALCIUM (BEAKER) (test 9.5 mg/dL 8.4-10.2 rzaz=416) AST (SGOT) (BEAKER) (test 155 U/L 5-34 nbpf=150) ALT (SGPT) (BEAKER) (test 151 U/L 6-55 npad=170) EGFR (BEAKER) (test 166 mL/min/1.73 sq ESTIMATED GFR IS NOT ytpf=6021) m ACCURATE CREATININE CLEARANCE IN PREDICTING GLOMERULAR FILTRATION RATE. ESTIMATED GFR IS NOT APPLICABLE FOR DIALYSIS PATIENTS. CBC W/PLT COUNT & AUTO [id number] 05:30:00 Test Item Value Reference Range Comments WHITE BLOOD CELL COUNT (BEAKER) (test jghg=887) 5.1 K/ L 3.5-10.5 RED BLOOD CELL COUNT (BEAKER) (test fwtw=288) 3.81 M/ L 4.63-6.08 HEMOGLOBIN (BEAKER) (test ffmx=804) 13.1 GM/DL 13.7-17.5 HEMATOCRIT (BEAKER) (test qkuj=741) 37.6 % 40.1-51.0 MEAN CORPUSCULAR VOLUME (BEAKER) (test sbxb=174) 98.7 fL 79.0-92.2 MEAN CORPUSCULAR HEMOGLOBIN (BEAKER) (test 34.4 pg 25.7-32.2 ybdg=225) MEAN CORPUSCULAR HEMOGLOBIN CONC (BEAKER) (test 34.8 GM/DL 32.3-36.5 rxbx=310) RED CELL DISTRIBUTION WIDTH (BEAKER) (test 11.5 % 11.6-14.4 vdto=770) PLATELET COUNT (BEAKER) (test zksj=233) 152 K/CU MM 150-450 MEAN PLATELET VOLUME (BEAKER) (test ione=790) 10.2 fL 9.4-12.4 NUCLEATED RED BLOOD CELLS (BEAKER) (test 0 /100 WBC 0-0 wxxe=759) NEUTROPHILS RELATIVE PERCENT (BEAKER) (test 71 % qzrx=614) LYMPHOCYTES RELATIVE PERCENT (BEAKER) (test 14 % bsjo=924) MONOCYTES RELATIVE PERCENT (BEAKER) (test 11 % lupc=283) EOSINOPHILS RELATIVE PERCENT (BEAKER) (test 2 % cida=253) BASOPHILS RELATIVE PERCENT (BEAKER) (test 1 % bzcw=042) NEUTROPHILS ABSOLUTE COUNT (BEAKER) (test 3.66 K/ L 1.78-5.38 onnr=534) LYMPHOCYTES ABSOLUTE COUNT (BEAKER) (test 0.71 K/ L 1.32-3.57 bynt=181) MONOCYTES ABSOLUTE COUNT (BEAKER) (test 0.58 K/ L 0.30-0.82 xttd=257) EOSINOPHILS ABSOLUTE COUNT (BEAKER) (test 0.10 K/ L 0.04-0.54 cjmz=431) BASOPHILS ABSOLUTE COUNT (BEAKER) (test 0.04 K/ L 0.01-0.08 xlad=487) IMMATURE GRANULOCYTES-RELATIVE PERCENT (BEAKER) 1 % 0-1 (test fiwt=9204) POCT-GLUCOSE [id number] 11:54:00 Test Item Value Reference Range Comments POC-GLUCOSE METER (BEAKER) 83 mg/dL 70-110 TESTED AT [address] (test ypla=0411) [facility] [address] [id number] 05:54:00 Test Item Value Reference Range Comments PHOSPHORUS (BEAKER) (test cebh=150) 2.3 mg/dL 2.3-4.7 [id number] 05:54:00 Test Item Value Reference Range Comments MAGNESIUM (BEAKER) (test ktqv=105) 2.0 mg/dL 1.6-2.6 COMPREHENSIVE METABOLIC [id number] 05:54:00 Test Item Value Reference Range Comments TOTAL PROTEIN (BEAKER) 6.0 gm/dL 6.0-8.3 (test imvq=571) ALBUMIN (BEAKER) (test 3.2 g/dL 3.5-5.0 opma=1538) ALKALINE PHOSPHATASE 134 U/L 40-150 (BEAKER) (test ywvl=684) BILIRUBIN TOTAL (BEAKER) 1.1 mg/dL 0.2-1.2 (test auey=212) SODIUM (BEAKER) (test 134 meq/L 136-145 pxjz=750) POTASSIUM (BEAKER) (test 3.6 meq/L 3.5-5.1 axdm=382) CHLORIDE (BEAKER) (test 100 meq/L 98-107 lmil=520) CO2 (BEAKER) (test 26 meq/L 22-29 iehw=968) BLOOD UREA NITROGEN 4 mg/dL 7-21 (BEAKER) (test leci=879) CREATININE (BEAKER) (test 0.54 mg/dL 0.57-1.25 xeff=207) GLUCOSE RANDOM (BEAKER) 141 mg/dL 70-105 (test fagj=527) CALCIUM (BEAKER) (test 8.8 mg/dL 8.4-10.2 bruc=223) AST (SGOT) (BEAKER) (test 183 U/L 5-34 xnsu=564) ALT (SGPT) (BEAKER) (test 149 U/L 6-55 gcla=749) EGFR (BEAKER) (test 176 mL/min/1.73 sq ESTIMATED GFR IS NOT cdrm=6938) m ACCURATE CREATININE CLEARANCE IN PREDICTING GLOMERULAR FILTRATION RATE. ESTIMATED GFR IS NOT APPLICABLE FOR DIALYSIS PATIENTS. LACTIC ACID, [id number] 05:35:00 Test Item Value Reference Range Comments LACTATE BLOOD VENOUS (2) (BEAKER) (test 1.0 mmol/L 0.5-2.2 uyte=9822) CBC W/PLT COUNT & AUTO [id number] 05:23:00 Test Item Value Reference Range Comments WHITE BLOOD CELL COUNT (BEAKER) (test hymh=617) 5.0 K/ L 3.5-10.5 RED BLOOD CELL COUNT (BEAKER) (test pank=288) 3.88 M/ L 4.63-6.08 HEMOGLOBIN (BEAKER) (test oltv=117) 13.0 GM/DL 13.7-17.5 HEMATOCRIT (BEAKER) (test dsag=608) 38.5 % 40.1-51.0 MEAN CORPUSCULAR VOLUME (BEAKER) (test ytqm=757) 99.2 fL 79.0-92.2 MEAN CORPUSCULAR HEMOGLOBIN (BEAKER) (test 33.5 pg 25.7-32.2 qqlu=250) MEAN CORPUSCULAR HEMOGLOBIN CONC (BEAKER) (test 33.8 GM/DL 32.3-36.5 mfil=837) RED CELL DISTRIBUTION WIDTH (BEAKER) (test 11.6 % 11.6-14.4 djrh=126) PLATELET COUNT (BEAKER) (test bxsu=780) 113 K/CU MM 150-450 MEAN PLATELET VOLUME (BEAKER) (test sjwv=228) 10.7 fL 9.4-12.4 NUCLEATED RED BLOOD CELLS (BEAKER) (test 0 /100 WBC 0-0 vwbn=658) NEUTROPHILS RELATIVE PERCENT (BEAKER) (test 72 % lcuk=429) LYMPHOCYTES RELATIVE PERCENT (BEAKER) (test 15 % ohgo=309) MONOCYTES RELATIVE PERCENT (BEAKER) (test 10 % buai=701) EOSINOPHILS RELATIVE PERCENT (BEAKER) (test 2 % wdrm=448) BASOPHILS RELATIVE PERCENT (BEAKER) (test 1 % fknv=704) NEUTROPHILS ABSOLUTE COUNT (BEAKER) (test 3.56 K/ L 1.78-5.38 seuj=500) LYMPHOCYTES ABSOLUTE COUNT (BEAKER) (test 0.76 K/ L 1.32-3.57 guhr=548) MONOCYTES ABSOLUTE COUNT (BEAKER) (test 0.49 K/ L 0.30-0.82 zetj=653) EOSINOPHILS ABSOLUTE COUNT (BEAKER) (test 0.10 K/ L 0.04-0.54 odvm=752) BASOPHILS ABSOLUTE COUNT (BEAKER) (test 0.04 K/ L 0.01-0.08 hweo=213) IMMATURE GRANULOCYTES-RELATIVE PERCENT (BEAKER) 1 % 0-1 (test joco=0782) POCT-GLUCOSE [id number] 18:44:00 Test Item Value Reference Range Comments POC-GLUCOSE METER (BEAKER) 100 mg/dL 70-110 TESTED AT [facility] [address] [facility] (test skwq=5561) [facility] [address] [id number] 17:58:00 Test Item Value Reference Range Comments PHOSPHORUS (BEAKER) (test eyjr=955) 2.3 mg/dL 2.3-4.7 [id number] 17:58:00 Test Item Value Reference Range Comments MAGNESIUM (BEAKER) (test ltkb=789) 1.8 mg/dL 1.6-2.6 BASIC METABOLIC [id number] 17:58:00 Test Item Value Reference Range Comments SODIUM (BEAKER) (test 137 meq/L 136-145 bkah=228) POTASSIUM (BEAKER) (test 3.6 meq/L 3.5-5.1 wnfz=661) CHLORIDE (BEAKER) (test 102 meq/L 98-107 oybw=742) CO2 (BEAKER) (test 26 meq/L 22-29 uwyo=464) BLOOD UREA NITROGEN 4 mg/dL 7-21 (BEAKER) (test dzts=765) CREATININE (BEAKER) (test 0.54 mg/dL 0.57-1.25 brmk=398) GLUCOSE RANDOM (BEAKER) 123 mg/dL 70-105 (test uzcp=456) CALCIUM (BEAKER) (test 8.7 mg/dL 8.4-10.2 ibgw=585) EGFR (BEAKER) (test 177 mL/min/1.73 sq m ESTIMATED GFR IS NOT obch=4236) ACCURATE CREATININE CLEARANCE IN PREDICTING GLOMERULAR FILTRATION RATE. ESTIMATED GFR IS NOT APPLICABLE FOR DIALYSIS PATIENTS. [id number] 16:55:00 Test Item Value Reference Range Comments MAGNESIUM (BEAKER) (test 1.6 mg/dL 1.6-2.6 Specimen slightly hemolyzed ztat=674) [id number] 16:55:00 Test Item Value Reference Range Comments PHOSPHORUS (BEAKER) (test 2.3 mg/dL 2.3-4.7 Specimen slightly hemolyzed wndf=735) BASIC METABOLIC [id number] 16:55:00 Test Item Value Reference Range Comments SODIUM (BEAKER) (test 138 meq/L 136-145 ltra=765) POTASSIUM (BEAKER) (test 3.7 meq/L 3.5-5.1 Specimen slightly dnzc=555) hemolyzed CHLORIDE (BEAKER) (test 105 meq/L 98-107 upqc=563) CO2 (BEAKER) (test 23 meq/L 22-29 pdjz=761) BLOOD UREA NITROGEN 4 mg/dL 7-21 (BEAKER) (test qqwr=069) CREATININE (BEAKER) (test 0.51 mg/dL 0.57-1.25 Specimen slightly bhwp=908) hemolyzed GLUCOSE RANDOM (BEAKER) 99 mg/dL 70-105 (test przh=149) CALCIUM (BEAKER) (test 8.0 mg/dL 8.4-10.2 bxyz=858) EGFR (BEAKER) (test 190 mL/min/1.73 sq m ESTIMATED GFR IS NOT wxmu=1365) ACCURATE CREATININE CLEARANCE IN PREDICTING GLOMERULAR FILTRATION RATE. ESTIMATED GFR IS NOT APPLICABLE FOR DIALYSIS PATIENTS. POCT-GLUCOSE [id number] 12:41:00 Test Item Value Reference Range Comments POC-GLUCOSE METER (BEAKER) 100 mg/dL 70-110 TESTED AT [facility] [address] [facility] (test smss=7117) [facility] [address] POCT-GLUCOSE [id number] 08:07:00 Test Item Value Reference Range Comments POC-GLUCOSE METER (BEAKER) 99 mg/dL 70-110 TESTED AT [facility] [address] [facility] (test emee=9196) [facility] [address] U/S, ABDOMINAL, [id number] 08:05:00Abdomen limited area? Add comment if clarification is needed.->LiverReason for exam:->suspected cirrhosis in heavy alcoholicFINAL REPORT Right upper quadrant abdominal ultrasound, 09/30/2018. History: Cirrhosis. Comparison: No ultrasound comparisons available for review. Comparison is made to CT dated yesterday. Discussion: Transverse and longitudinal images of the right upper quadrant of the abdomen were obtained. The liver is enlarged measuring 22 cm in length along the right midclavicular line.There is increased echogenicity of the liver. There [...] free fluid. IMPRESSION: 1. Hepatomegaly with hepatic steatosis.2. Trace pericholecystic fluid which is likely related to pancreatitis.3. Mild prominence of the portal vein measuring up to 15 mm in diameter which may be secondary to portal hypertension. Signed: Juan Ramos Verified Date /Time: 09/30/2018 08:05:48 Reading Location: [address] Ultrasound Reading Room [id number] 07:23:00 Test Item Value Reference Range Comments PHOSPHORUS (BEAKER) (test rbve=797) 1.2 mg/dL 2.3-4.7 [id number] 07:11:00 Test Item Value Reference Range Comments MAGNESIUM (BEAKER) (test kxgr=901) 2.3 mg/dL 1.6-2.6 COMPREHENSIVE METABOLIC [id number] 07:11:00 Test Item Value Reference Range Comments TOTAL PROTEIN (BEAKER) 5.8 gm/dL 6.0-8.3 (test pozz=002) ALBUMIN (BEAKER) (test 3.1 g/dL 3.5-5.0 xljl=6224) ALKALINE PHOSPHATASE 141 U/L 40-150 (BEAKER) (test dici=313) BILIRUBIN TOTAL (BEAKER) 1.1 mg/dL 0.2-1.2 (test elxi=788) SODIUM (BEAKER) (test 135 meq/L 136-145 hczr=950) POTASSIUM (BEAKER) (test 3.7 meq/L 3.5-5.1 ihvn=964) CHLORIDE (BEAKER) (test 104 meq/L 98-107 yrxa=936) CO2 (BEAKER) (test 24 meq/L 22-29 xvge=766) BLOOD UREA NITROGEN 5 mg/dL 7-21 (BEAKER) (test hkku=651) CREATININE (BEAKER) (test 0.39 mg/dL 0.57-1.25 vmfn=683) GLUCOSE RANDOM (BEAKER) 114 mg/dL 70-105 (test aavb=506) CALCIUM (BEAKER) (test 8.3 mg/dL 8.4-10.2 igkb=031) AST (SGOT) (BEAKER) (test 354 U/L 5-34 dndz=789) ALT (SGPT) (BEAKER) (test 188 U/L 6-55 vaaj=196) EGFR (BEAKER) (test 258 mL/min/1.73 sq ESTIMATED GFR IS NOT kdjy=5976) m ACCURATE CREATININE CLEARANCE IN PREDICTING GLOMERULAR FILTRATION RATE. ESTIMATED GFR IS NOT APPLICABLE FOR DIALYSIS PATIENTS. LACTIC ACID, [id number] 04:07:00 Test Item Value Reference Range Comments LACTATE BLOOD VENOUS (2) 0.8 mmol/L 0.5-2.2 Specimen slightly hemolyzed (BEAKER) (test tzyw=9384) CBC W/PLT COUNT & AUTO [id number] 04:00:00 Test Item Value Reference Range Comments WHITE BLOOD CELL COUNT (BEAKER) (test gvyl=428) 6.1 K/ L 3.5-10.5 RED BLOOD CELL COUNT (BEAKER) (test jkup=973) 3.87 M/ L 4.63-6.08 HEMOGLOBIN (BEAKER) (test ydkh=893) 13.3 GM/DL 13.7-17.5 HEMATOCRIT (BEAKER) (test fddj=566) 39.1 % 40.1-51.0 MEAN CORPUSCULAR VOLUME (BEAKER) (test pxse=476) 101.0 fL 79.0-92.2 MEAN CORPUSCULAR HEMOGLOBIN (BEAKER) (test 34.4 pg 25.7-32.2 kslw=840) MEAN CORPUSCULAR HEMOGLOBIN CONC (BEAKER) (test 34.0 GM/DL 32.3-36.5 gmer=053) RED CELL DISTRIBUTION WIDTH (BEAKER) (test 12.1 % 11.6-14.4 zjus=486) PLATELET COUNT (BEAKER) (test zpct=523) 105 K/CU MM 150-450 MEAN PLATELET VOLUME (BEAKER) (test xvqj=561) 10.4 fL 9.4-12.4 NUCLEATED RED BLOOD CELLS (BEAKER) (test 0 /100 WBC 0-0 vney=175) NEUTROPHILS RELATIVE PERCENT (BEAKER) (test 74 % weym=112) LYMPHOCYTES RELATIVE PERCENT (BEAKER) (test 14 % cyqc=687) MONOCYTES RELATIVE PERCENT (BEAKER) (test 10 % smzb=158) EOSINOPHILS RELATIVE PERCENT (BEAKER) (test 1 % pcqc=804) BASOPHILS RELATIVE PERCENT (BEAKER) (test 1 % gkwa=194) NEUTROPHILS ABSOLUTE COUNT (BEAKER) (test 4.52 K/ L 1.78-5.38 gksw=117) LYMPHOCYTES ABSOLUTE COUNT (BEAKER) (test 0.84 K/ L 1.32-3.57 ginc=190) MONOCYTES ABSOLUTE COUNT (BEAKER) (test 0.62 K/ L 0.30-0.82 zolj=213) EOSINOPHILS ABSOLUTE COUNT (BEAKER) (test 0.06 K/ L 0.04-0.54 fzqo=579) BASOPHILS ABSOLUTE COUNT (BEAKER) (test 0.03 K/ L 0.01-0.08 ccdq=723) IMMATURE GRANULOCYTES-RELATIVE PERCENT (BEAKER) 0 % 0-1 (test vwiu=4305) [id number] 01:32:00 Test Item Value Reference Range Comments PROCALCITONIN (BEAKER) (test kaco=9635) 0.48 ng/mL <0.05 SEPSIS RISK (ng/mL)Low: 0.05-0.50Intermediate: 0.51-2.00High: & gt;=2.01BASIC METABOLIC [id number] 00:58:00 Test Item Value Reference Range Comments SODIUM (BEAKER) (test 135 meq/L 136-145 povn=317) POTASSIUM (BEAKER) (test 3.4 meq/L 3.5-5.1 ajpb=917) CHLORIDE (BEAKER) (test 104 meq/L 98-107 esfg=391) CO2 (BEAKER) (test 22 meq/L 22-29 djuq=235) BLOOD UREA NITROGEN 7 mg/dL 7-21 (BEAKER) (test fsbi=839) CREATININE (BEAKER) (test 0.55 mg/dL 0.57-1.25 rroa=654) GLUCOSE RANDOM (BEAKER) 113 mg/dL 70-105 (test rrxw=793) CALCIUM (BEAKER) (test 8.4 mg/dL 8.4-10.2 syqh=750) EGFR (BEAKER) (test 174 mL/min/1.73 sq m ESTIMATED GFR IS NOT vqkd=4816) ACCURATE CREATININE CLEARANCE IN PREDICTING GLOMERULAR FILTRATION RATE. ESTIMATED GFR IS NOT APPLICABLE FOR DIALYSIS PATIENTS. [id number] 00:57:00 Test Item Value Reference Range Comments MAGNESIUM (BEAKER) (test ufda=412) 1.5 mg/dL 1.6-2.6 LACTIC ACID, [id number] 00:37:00 Test Item Value Reference Range Comments LACTATE BLOOD VENOUS (2) 0.7 mmol/L 0.5-2.2 Specimen moderately hemolyzed (BEAKER) (test lkln=8283) POCT-GLUCOSE [id number] 00:25:00 Test Item Value Reference Range Comments POC-GLUCOSE METER (BEAKER) 101 mg/dL 70-110 TESTED AT [address] (test zwbs=0539) [facility] [address] POCT-GLUCOSE [id number] 18:32:00 Test Item Value Reference Range Comments POC-GLUCOSE METER (BEAKER) 76 mg/dL 70-110 TESTED AT [facility] [address] [facility] (test lseh=6806) [facility] [address] [id number] 15:15:00 Test Item Value Reference Range Comments POTASSIUM (BEAKER) (test mpmt=515) 3.4 meq/L 3.5-5.1 [id number] 15:15:00 Test Item Value Reference Range Comments MAGNESIUM (BEAKER) (test moia=610) 2.1 mg/dL 1.6-2.6 CT, [id number] 12:38:00FINAL REPORT CT abdomen with and without contrast. [...] calculi a nonspecific linear hyperdensity of unclear clinicalsignificance. There is no hydronephrosis. The urinary bladder demonstrates excreted contrast. There is a small amount of pelvic ascites. There is no bowel obstruction or perforation. There is nonspecific wall thickening of the colonic loops, for which underlying colitis cannot be excluded. The appendix appear unremarkable. Scattered subcentimeter lymph nodes are seen in the mesentery and retroperitoneum. IMPRESSION:1. CT findings consistent with acute pancreatitis as above.2. Hepatomegaly and markedhepatic steatosis.3. Small amount of ascites.4. Small hiatus hernia.5. Punctate nonobstructing bilateral renal calculi.6. Nonspecific colonic wall thickening for which underlying colitis cannot be excluded. Signed : Gavin Gómez MDReport Verified Date/Time: 09/29/2018 12:38:07 Reading Location : [facility] B1 [id number] Ortho Consult Reading Room POCT-GLUCOSE [id number] 11:49:00 Test Item Value Reference Range Comments POC-GLUCOSE METER (BEAKER) 83 mg/dL 70-110 TESTED AT [facility] [address] [facility] (test ceko=6012) [facility] [address] [id number] 10:49:00 Test Item Value Reference Range Comments TRIGLYCERIDES (BEAKER) (test 71 mg/dL Specimen slightly hemolyzed fqag=361) TRIGLYCERIDE REFERENCE RANGELow Risk <150Borderline Risk 150-199High Risk 200-499Very High Risk>=[id number] 05:09:00 Test Item Value Reference Range Comments LIPASE (BEAKER) (test rsws=417) > U/L 8-78 [id number] 04:35:00 Test Item Value Reference Range Comments MAGNESIUM (BEAKER) (test 1.6 mg/dL 1.6-2.6 Specimen slightly hemolyzed thzx=268) [id number] 04:35:00 Test Item Value Reference Range Comments PHOSPHORUS (BEAKER) (test 3.2 mg/dL 2.3-4.7 Specimen slightly hemolyzed qtre=412) COMPREHENSIVE METABOLIC [id number] 04:35:00 Test Item Value Reference Range Comments TOTAL PROTEIN (BEAKER) 6.8 gm/dL 6.0-8.3 Specimen slightly (test frre=924) hemolyzed ALBUMIN (BEAKER) (test 3.8 g/dL 3.5-5.0 Specimen slightly zusq=4980) hemolyzed ALKALINE PHOSPHATASE 130 U/L 40-150 (BEAKER) (test nmqm=136) BILIRUBIN TOTAL (BEAKER) 1.7 mg/dL 0.2-1.2 Specimen slightly (test qqql=656) hemolyzed SODIUM (BEAKER) (test 138 meq/L 136-145 gdzm=926) POTASSIUM (BEAKER) (test 3.7 meq/L 3.5-5.1 Specimen slightly wvlr=190) hemolyzed CHLORIDE (BEAKER) (test 103 meq/L 98-107 gvll=452) CO2 (BEAKER) (test 17 meq/L 22-29 tjub=251) BLOOD UREA NITROGEN 9 mg/dL 7-21 (BEAKER) (test foks=343) CREATININE (BEAKER) (test 0.65 mg/dL 0.57-1.25 Specimen slightly ftnf=734) hemolyzed GLUCOSE RANDOM (BEAKER) 103 mg/dL 70-105 (test irzm=320) CALCIUM (BEAKER) (test 8.7 mg/dL 8.4-10.2 sapl=471) AST (SGOT) (BEAKER) (test 151 U/L 5-34 Specimen slightly jgvm=822) hemolyzed ALT (SGPT) (BEAKER) (test 143 U/L 6-55 Specimen slightly lmjt=443) hemolyzed EGFR (BEAKER) (test 143 mL/min/1.73 sq ESTIMATED GFR IS NOT gjrj=9458) m ACCURATE CREATININE CLEARANCE IN PREDICTING GLOMERULAR FILTRATION RATE. ESTIMATED GFR IS NOT APPLICABLE FOR DIALYSIS PATIENTS. PROTHROMBIN [id number] 04:34:00 Test Item Value Reference Range Comments PROTIME (BEAKER) (test oqdh=341) 14.6 seconds 11.7-14.7 INR (BEAKER) (test ffag=219) 1.1 <=5.9 RECOMMENDED COUMADIN/WARFARIN INR THERAPY RANGESSTANDARD DOSE: 2.0 - 3.0 Includes: PROPHYLAXIS forvenous thrombosis, systemic embolization; TREATMENT for venous thrombosis and/or pulmonary embolus.HIGH RISK: Target INR is 2.5-3.5 for patients with mechanical heart valves.CBC W/PLT COUNT & AUTO [id number] 04:09:00 Test Item Value Reference Range Comments WHITE BLOOD CELL COUNT (BEAKER) (test lbws=601) 6.2 K/ L 3.5-10.5 RED BLOOD CELL COUNT (BEAKER) (test moaz=726) 4.33 M/ L 4.63-6.08 HEMOGLOBIN (BEAKER) (test wpsi=829) 15.0 GM/DL 13.7-17.5 HEMATOCRIT (BEAKER) (test tjem=948) 43.2 % 40.1-51.0 MEAN CORPUSCULAR VOLUME (BEAKER) (test ixuv=712) 99.8 fL 79.0-92.2 MEAN CORPUSCULAR HEMOGLOBIN (BEAKER) (test 34.6 pg 25.7-32.2 rgfn=727) MEAN CORPUSCULAR HEMOGLOBIN CONC (BEAKER) (test 34.7 GM/DL 32.3-36.5 mqhw=899) RED CELL DISTRIBUTION WIDTH (BEAKER) (test 12.4 % 11.6-14.4 kaab=707) PLATELET COUNT (BEAKER) (test wqqg=025) 160 K/CU MM 150-450 MEAN PLATELET VOLUME (BEAKER) (test goch=863) 10.4 fL 9.4-12.4 NUCLEATED RED BLOOD CELLS (BEAKER) (test 0 /100 WBC 0-0 wukh=300) NEUTROPHILS RELATIVE PERCENT (BEAKER) (test 81 % amjw=512) LYMPHOCYTES RELATIVE PERCENT (BEAKER) (test 7 % elgg=724) MONOCYTES RELATIVE PERCENT (BEAKER) (test 10 % jvvv=052) EOSINOPHILS RELATIVE PERCENT (BEAKER) (test 0 % yqcn=951) BASOPHILS RELATIVE PERCENT (BEAKER) (test 1 % vhmg=205) NEUTROPHILS ABSOLUTE COUNT (BEAKER) (test 5.01 K/ L 1.78-5.38 weth=328) LYMPHOCYTES ABSOLUTE COUNT (BEAKER) (test 0.44 K/ L 1.32-3.57 rwll=763) MONOCYTES ABSOLUTE COUNT (BEAKER) (test 0.62 K/ L 0.30-0.82 euru=492) EOSINOPHILS ABSOLUTE COUNT (BEAKER) (test 0.01 K/ L 0.04-0.54 eoiw=574) BASOPHILS ABSOLUTE COUNT (BEAKER) (test 0.03 K/ L 0.01-0.08 qvch=825) IMMATURE GRANULOCYTES-RELATIVE PERCENT (BEAKER) 1 % 0-1 (test mygx=5534)
[2018-10-27 18:35] LABS: Absolute Lymphocytes (CBC) 0.8 K/uL (0.7-4.9); Absolute Monocytes 0.5 K/uL (0.1-1.3); Basophils % 0.8 % (0-1.3); Eosinophils % 0.7 % (0-4.4); Lymphocytes % 19.3 % (15.3-44.8); MPV 8.2 fL (7.6-11.3); Monocytes % 10.6 % (3.3-12.3); RBC Red Blood Cell Count 4.24 M/uL (4.33-5.43)
--- NOTE | 2018-10-27 18:36 | RAD REPORT ---
EXAM DESCRIPTION: RAD - Chest Single View - 10/27/2018 6:10 pm CLINICAL HISTORY: Abdominal pain, abdominal distention, pancreatitis history COMPARISON: December 2011 TECHNIQUE: AP portable chest image was obtained 1807 hours . FINDINGS: Lungs are clear. Heart and vasculature are normal. No measurable pleural effusion and no p neumothorax. No acute bony abnormality seen. No acute aortic findings suspected. IMPRESSION: No acute cardiopulmonary process. No suspicious interval change.
[2018-10-27 18:45] LABS: Protime INR 1.29
[2018-10-27] MEDS ORDERED: NA CHLORIDE 0.9% 2,000 ML ONE (18:45)
[2018-10-27] MEDS ORDERED: MORPHINE 4 MG/ML SYR ONE ×2 (18:46→21:39)
[2018-10-27] MEDS ORDERED: ONDANSETRON 4 MG/2 ML VIAL ONE (18:46)
[2018-10-27 18:47] LABS: Urine Blood 1+ (NEG); Urine Glucose NEGATIVE (NEG); Urine Protein 3+ (NEG); Urine Specific Gravity 1.015 (1.005-1.030); Urine pH 7.5 (5.0-7.0)
[2018-10-27 19:01] LABS: Albumin 3.9 g/dL (3.4-5.0); Alkaline Phosphatase 231 U/L (45-117); BUN Blood Urea Nitrogen 5 mg/dL (7-18); Bicarbonate 28 mmol/L (21-32); Bilirubin Direct 0.5 mg/dL (0-0.2); Glucose Level 91 mg/dL (74-106); Lipase 2781 U/L (73-393); Magnesium 1.7 mg/dL (1.8-2.4); NT PRO-BNP 224 pg/mL (<125); Protein, Total 7.8 g/dL (6.4-8.2); Sodium Level 140 mmol/L (136-145); Troponin (Emerg Dept Use Only) < 0.02 ng/mL (0.0-0.045)
[2018-10-27 19:02] LABS: ALT/SGPT 328 U/L (12-78); AST/SGOT 458 U/L (15-37); Potassium 2.6 mmol/L (3.5-5.1)
--- NOTE | 2018-10-27 19:57 | RAD REPORT ---
EXAM DESCRIPTION: CT - Abdomen Pelvis W Contrast - 10/27/2018 7:40 pm CLINICAL HISTORY: Abdominal pain, recent pancreatitis diagnosis COMPARISON: CT September 2018 TECHNIQUE: Biphasic, helical CT imaging of the abdomen and pelvis was performed following 100 ml non -ionic IV contrast. Oral contrast was given. All CT scans are performed using dose optimization technique as appropriate and may include automated exposure control or mA/KV adjustment according to patient size. FINDINGS: No suspicious findings in the lung bases. Liver again demonstrates the very pronounced diffuse fatty infiltration. Hepatomegaly is present. The re are no focal hepatic lesions. No significant splenic finding. Gallbladder wall thickening is seen. There is pericholecystic fluid. Gallstones can be occult. Biliary tree is not outside of normal rang e. Duct stones can be occult. No solid or cystic mass within the pancreatic parenchyma. There is edema within the pancreas and in t he peripancreatic fatty tissues. Findings are less prominent than seen in mid September examination. Symmetric renal function is seen with no hydronephrosis or suspicious renal mass. No pyelonephritis o r acute parenchymal process. No bladder abnormalities. No adrenal abnormalities. No gastric dilatation or wall thickening. Duodenal C-loop shows wall thickening were it abuts the hea d of the pancreas. Distal duodenum and remainder of the small bowel without significant finding. No d ilated colon. Minimal wall thickening is present throughout the colon. A discrete mass is not identif ied. Trace amount of free fluid is present. No free air or pneumatosis. No hernia, mass or bulky lymphade nopathy. No suspicious bony findings. IMPRESSION: Acute pancreatitis findings are present. Findings are less prominent than the mid September examination. This could be remnant acute pancreatitis or a more mild recurrent pancreatitis. Gallbladder wall thickening with pericholecystic fluid. No biliary tree dilatation. This may be secon colette to the pancreatitis. A gallstone pancreatitis is a possibility as stones can be occult. Primary T8 cholecystitis is not excluded. Mild wall thickening throughout the colon without a discrete mass or adjacent stranding. A significan t, acute colon process is doubtful. Duodenal wall thickening were it abuts the head of the pancreas. Hepatomegaly with a very diffuse pronounced fatty infiltration.
[2018-10-27] MEDS ORDERED: MAGNESIUM SULFATE 1 gm IVPB 1 GM/100 ML BAG IV ONE (20:17)
[2018-10-27] MEDS ORDERED: KCL 20 MEQ/100 mL IVPB 20 MEQ/100 ML BAG IV ONE (20:18)
[2018-10-27] MEDS ORDERED: CEFTRIAXONE/SWI 1gm 1 GM/10 ML SYR ONE (21:04)
[2018-10-27] MEDS ORDERED: NA CHLORIDE 0.9% 1,000 ML ONE (21:04)
--- NOTE | 2018-10-27 21:17 | ER ---
Nurse's Notes [facility] Name: Jonathan Gutierrez Age: 33 yrs Sex: Male : 1985 Arrival Date: 10/27/2018 Time: 16:20 Bed 24 Private MD: Diagnosis: Cholecystitis;Acute pancreatitis Presentation: 10/27 16:31 Presenting complaint: Patient states: diagnosed with acute pancreatitis approximately 1 aa5 month ago and transferred to [facility]. Pt c/o abd pain and nausea and vomiting since last night. Pt states "my heart rate has been high and nobody can figure out why". Pt states "I just started drinking again about 3 days ago". Transition of care: patient was not received from another setting of care. Onset of symptoms was October 2018. Risk Assessment: Do you want to hurt yourself or someone else? Patient reports no desire to harm self or others. Initial Sepsis Screen: Does the patient meet any 2 criteria? No. Patient's initial sepsis screen is negative. Does the patient have a suspected source of infection? No. Patient's initial sepsis screen is negative. Care prior to arrival: Glucose check: 107. 16:31 Acuity: NEO 3 aa5 16:31 Method Of Arrival: EMS: [facility] aa5 Historical: - Allergies: 16:34 No Known Allergies; aa5 - Home Meds: 16:34 Lisinopril Oral [Active]; Thiamine Oral [Active]; Folic Acid Oral [Active]; aa5 - PMHx: 16:34 Hypertension; aa5 - PSHx: 16:33 None; aa5 - Immunization history:: Flu vaccine is not up to date. - Social history:: Smoking status: Patient uses tobacco products, smokes two packs cigarettes per day. - Ebola Screening: : No symptoms or risks identified at this time. Screenin:55 Abuse screen: Denies threats or abuse. Denies injuries from another. Nutritional ca1 screening: No deficits noted. Tuberculosis screening: No symptoms or risk factors identified. Fall Risk IV access (20 points). Assessment: 17:55 General: Appears in no apparent distress. comfortable, Behavior is calm, cooperative, ca1 appropriate for age. Pain: Complains of pain in abdomen Pain currently is 8 out of 10 on a pain scale. Pain began 2-3 days ago. Neuro: Level of Consciousness is awake, alert, obeys commands, Oriented to person, place, time, situation. Cardiovascular: Heart tones S1 S2 present Capillary refill < 3 seconds Patient's skin is warm and dry. Respiratory: Airway is patent Respiratory effort is even, unlabored, Respiratory pattern is regular, symmetrical, Breath sounds are clear bilaterally. GI: Abdomen is flat, non-distended, Bowel sounds present X 4 quads. Abd is soft X 4 quads Abdomen is tender to palpation X 4 quads. Reports nausea, vomiting. : No deficits noted. No signs and/or symptoms were reported regarding the genitourinary system. EENT: No deficits noted. No signs and/or symptoms were reported regarding the EENT system. Derm: Skin is intact, is healthy with good turgor, Skin is pink, warm \\T\\ dry. Musculoskeletal: Circulation, motion, and sensation intact. Capillary refill < 3 seconds. 18:50 Reassessment: Patient appears in no apparent distress at this time. Patient and/or ca1 family updated on plan of care and expected duration. Pain level reassessed. Patient is alert, oriented x 3, equal unlabored respirations, skin warm/dry/pink. 19:45 Reassessment: Patient appears in no apparent distress at this time. Patient and/or ca1 family updated on plan of care and expected duration. Pain level reassessed. Patient is alert, oriented x 3, equal unlabored respirations, skin warm/dry/pink. 20:50 Reassessment: Patient appears in no apparent distress at this time. Patient and/or ca1 family updated on plan of care and expected duration. Pain level reassessed. Patient is alert, oriented x 3, equal unlabored respirations, skin warm/dry/pink. 21:49 Reassessment: Patient appears in no apparent distress at this time. Patient is alert, ca1 oriented x 3, equal unlabored respirations, skin warm/dry/pink. 21:50 Reassessment: Called Report to Lidia Vidal RN at [facility]. ca1 Vital Signs: 16:35 BP 160 / 118; Pulse 127; Resp 18 S; Temp 97.8(TE); Pulse Ox 98% on R/A; Weight 70.31 kg aa5 (R); Height 5 ft. 11 in. (180.34 cm) (R); Pain 8/10; 18:28 BP 149 / 116; Pulse 120; Resp 22 S; Pulse Ox 99% on R/A; ca1 19:00 BP 148 / 108; Pulse 94; Resp 18 S; Pulse Ox 99% on R/A; ca1 19:55 BP 156 / 116; Pulse 104; Resp 17 S; Pulse Ox 99% on R/A; ca1 20:48 BP 153 / 105; Pulse 96; Resp 17 S; Pulse Ox 100% on R/A; ca1 21:50 BP 151 / 110; Pulse 102; Resp 16 S; Pulse Ox 100% on R/A; ca1 16:35 Body Mass Index 21.62 (70.31 kg, 180.34 cm) aa5 ED Course: 16:20 Patient arrived in ED. as 16:31 Arm band placed on. aa5 16:33 Triage completed. aa5 17:55 Patient has correct armband on for positive identification. Placed in gown. Bed in low ca1 position. Side rails up X 1. cafeteria monitor on. Pulse ox on. NIBP on. Warm blanket given. 17:59 Prateek Lacey MD is Attending Physician. beck 18:00 Prateek Castro PA is PHCP. cp 18:08 XRAY Chest (1 view) In Process Unspecified. EDMS 18:15 Inserted saline lock: 20 gauge antecubital area, using aseptic technique. ,using ca1 aseptic technique. by Jose Luis Chandler, [facility] Blood collected. 18:15 No provider procedures requiring assistance completed. ca1 18:18 Kathy Pruett, RN is Primary Nurse. ca1 18:30 Radiology exam delayed due to lab results not completed at this time. (BUN/Creatinine). mw3 19:40 CT Abd/Pelvis - W/Contrast In Process Unspecified. EDMS 22:07 Patient transferred, IV remains in place. ca1 Administered Medications: 18:35 Drug: Zofran 4 mg Route: IVP; Site: right antecubital; ca1 20:50 Follow up: Response: No adverse reaction; Nausea is decreased ca1 18:38 Drug: morphine 4 mg Route: IVP; Site: right antecubital; ca1 20:50 Follow up: Response: No adverse reaction; Pain is decreased ca1 18:40 Drug: NS 0.9% 1000 ml Route: IV; Rate: 1 bolus; Site: right antecubital; ca1 20:49 Follow up: Urine output 350 ml; IV Status: Completed infusion ca1 18:42 Drug: NS 0.9% 1000 ml Route: IV; Rate: 1 bolus; Site: right antecubital; ca1 20:49 Follow up: IV Status: Completed infusion ca1 19:50 Drug: Potassium Chloride 20 mEq Route: IV; Rate: calculated rate; Site: right ca1 antecubital; 21:52 Follow up: IV Status: Completed infusion ca1 21:52 Follow up: Response: No adverse reaction; IV Status: Completed infusion ca1 19:55 Drug: Magnesium Sulfate 1 grams Route: IVPB; Infused Over: 1 hrs; Site: right ca1 antecubital; 21:20 Follow up: Response: No adverse reaction; IV Status: Completed infusion ca1 20:25 Drug: NS 0.9% 1000 ml Route: IV; Rate: 1 bolus; Site: right antecubital; ca1 21:30 Follow up: Urine output 400 ml; Response: No adverse reaction; IV Status: Completed ca1 infusion 21:00 Drug: morphine 4 mg Route: IVP; Site: right antecubital; ca1 22:00 Follow up: Response: No adverse reaction; Pain is decreased ca1 21:04 Drug: Rocephin - (cefTRIAXone) 1 grams Route: IVPB; Infused Over: 30 mins; Site: right ca1 antecubital; 21:20 Follow up: IV Status: IVP per pharmacy protocol ca1 Output: 20:49 Urine: 350ml; Total: 350ml. ca1 21:30 Urine: 400ml; Total: 750ml. ca1 Outcome: 21:17 ER care complete, transfer ordered by . 22:28 Transferred by ground EMS to [facility], Transfer form completed. ca1 X-rays sent w/ patient. 22:28 Condition: stable 22:28 Instructed on the need for transfer. 22:28 Patient left the ED. ca1 Signatures: Dispatcher [employer] EDMS Prateek Lacey MD MD cha Martinez, Amelia as Calderon, Audri, RN RN aa5 Prateek Castro PA PA Tanja Tay mw3 Kathy Pruett RN RN ca1 Corrections: (The following items were deleted from the chart) 16:35 16:31 Presenting complaint: Patient states: diagnosed with acute pancreatitis aa5 approximately 1 month ago and transferred to [facility]. Pt c/o abd pain and nausea and vomiting since last night. Pt states "my heart rate has been high and nobody can figure out why" [facility] 16:31 Care prior to arrival: None. [place] [id number] 16:31 Method Of Arrival: Ambulatory [facility] 21:48 19:00 Inserted saline lock: 20 gauge antecubital area, using aseptic technique. ,using ca1 aseptic technique. by Jose Luis Chandler RN Blood collected. ca1 21:49 18:15 Inserted saline lock: 20 gauge antecubital area, using aseptic technique. ,using ca1 aseptic technique. by Jose Luis Chandler RN Blood collected. ca1
--- NOTE | 2018-10-27 21:17 | EDPHYS ---
Physician Documentation [facility] Name: Jonathan Gutierrez Age: 33 yrs Sex: Male : 1985 Arrival Date: 10/27/2018 Time: 16:20 Bed 24 Private MD: ED Physician Prateek Lacey HPI: 10/27 18:15 This 33 yrs old Male presents to ER via EMS with complaints of Pancreatitis. cp 18:15 The patient presents with abdominal pain in the epigastric area. cp 18:15 Onset: The symptoms/episode began/occurred 2 day(s) ago. cp 18:15 The symptoms do not radiate. Associated signs and symptoms: Pertinent positives: nausea cp and vomiting, Pertinent negatives: blood in stools, chest pain, constipation, diarrhea, fever, testicular pain, vomiting blood. 18:15 The symptoms are described as constant. Severity of pain: in the emergency department cp the pain is a 8 / 10. The patient has experienced a previous episode, last month, when diagnosed with alcoholic pancreatitis. Historical: - Allergies: 16:34 No Known Allergies; aa5 - Home Meds: 16:34 Lisinopril Oral [Active]; Thiamine Oral [Active]; Folic Acid Oral [Active]; aa5 - PMHx: 16:34 Hypertension; aa5 - PSHx: 16:33 None; aa5 - Immunization history:: Flu vaccine is not up to date. - Social history:: Smoking status: Patient uses tobacco products, smokes two packs cigarettes per day. - Ebola Screening: : No symptoms or risks identified at this time. ROS: 18:20 Constitutional: Positive for poor PO intake, Negative for body aches, chills, fever. cp 18:20 Eyes: Negative for injury, pain, redness, and discharge. cp 18:20 ENT: Negative for drainage from ear(s), ear pain, sore throat, difficulty swallowing, difficulty handling secretions. 18:20 Cardiovascular: Negative for chest pain, edema. 18:20 Respiratory: Negative for cough, shortness of breath, wheezing. 18:20 Abdomen/GI: Positive for abdominal pain, nausea and vomiting, Negative for diarrhea, constipation, hematemesis, black/tarry stool, rectal bleeding. 18:20 Back: Negative for pain at rest, pain with movement. 18:20 Skin: Negative for rash. 18:20 Neuro: Negative for altered mental status, headache, weakness. 18:20 All other systems are negative. Exam: 18:25 Constitutional: The patient appears in no acute distress, alert, awake, cp non-diaphoretic, non-toxic, well developed, well nourished, uncomfortable. 18:25 Head/Face: Normocephalic, atraumatic. cp 18:25 Eyes: Periorbital structures: appear normal, Conjunctiva: normal, no exudate, no injection, Sclera: no appreciated abnormality, Lids and lashes: appear normal, bilaterally. 18:25 ENT: External ear(s): are unremarkable, Ear canal(s): are normal, clear, TM's: are normal, no evidence of bulging, no erythema, Nose: is normal, Mouth: Lips: moist, Oral mucosa: moist, Posterior pharynx: Airway: no evidence of obstruction, patent. 18:25 Neck: ROM/movement: is normal, is supple, without pain, no range of motions limitations, no nuchal rigidity. 18:25 Chest/axilla: Inspection: normal, Palpation: is normal, no crepitus, no tenderness. 18:25 Cardiovascular: Rate: tachycardic, Rhythm: regular, Edema: is not appreciated, JVD: is not appreciated. 18:25 Respiratory: the patient does not display signs of respiratory distress, Respirations: normal, no use of accessory muscles, no retractions, no splinting, no tachypnea, labored breathing, is not present, Breath sounds: are clear throughout, no decreased breath sounds, no stridor, no wheezing. 18:25 Abdomen/GI: Inspection: abdomen appears normal, Bowel sounds: active, all quadrants, Palpation: soft, in all quadrants, moderate abdominal tenderness, in the epigastric area, rebound tenderness, is not appreciated, voluntary guarding, is elicited in the epigastric area. 18:25 Back: ROM is normal. 18:25 Skin: cellulitis, is not appreciated, no rash present. 18:25 Neuro: Orientation: to person, place \T\ time. Mentation: is normal, Cerebellar function: is grossly normal, Motor: is normal. 18:30 ECG was reviewed by the Attending Physician. cp Vital Signs: 16:35 BP 160 / 118; Pulse 127; Resp 18 S; Temp 97.8(TE); Pulse Ox 98% on R/A; Weight 70.31 kg aa5 (R); Height 5 ft. 11 in. (180.34 cm) (R); Pain 8/10; 18:28 BP 149 / 116; Pulse 120; Resp 22 S; Pulse Ox 99% on R/A; ca1 19:00 BP 148 / 108; Pulse 94; Resp 18 S; Pulse Ox 99% on R/A; ca1 19:55 BP 156 / 116; Pulse 104; Resp 17 S; Pulse Ox 99% on R/A; ca1 20:48 BP 153 / 105; Pulse 96; Resp 17 S; Pulse Ox 100% on R/A; ca1 21:50 BP 151 / 110; Pulse 102; Resp 16 S; Pulse Ox 100% on R/A; ca1 16:35 Body Mass Index 21.62 (70.31 kg, 180.34 cm) aa5 MDM: 17:59 Patient medically screened. beck 18:00 Differential diagnosis: cholecystitis, Cholelithiasis, gastritis, GI Bleed, cp pancreatitis, Peptic Ulcer Disease, Perf. Duodenal Ulcer, Perf. Gastric Ulcer, Ureterolithiasis, urinary tract infection. 20:15 Data reviewed: vital signs, nurses notes, lab test result(s), EKG, radiologic studies, cp CT scan, plain films, I have discussed the patient's presentation/case with the attending Emergency Department Physician;. 20:15 Test interpretation: by ED physician or midlevel provider: ECG, plain radiologic cp studies. Response to treatment: the patient's symptoms have markedly improved after treatment. 21:15 Physician consultation: DR Escobedo, hospitalist \T\[facility], will cp accept patient as transfer. 10/27 18:01 Order name: Basic Metabolic Panel [facility] 10/27 18:01 Order name: CBC with Diff [facility] 10/27 18:01 Order name: LFT's; Complete Time: 19:20 [facility] 10/27 20:09 Interpretation: Normal except: AST 458; ALT 328; ALK 231; BILID 0.5; GLOB 3.9; A/G 1.0. 10/27 18:01 Order name: Magnesium; Complete Time: 19:20 [facility] 10/27 19:20 Interpretation: MG 1.7; Reviewed. 10/27 18:01 Order name: NT PRO-BNP; Complete Time: 19:20 [facility] 10/27 18:01 Order name: PT-INR; Complete Time: 19:20 [facility] 10/27 18:01 Order name: Troponin (emerg Dept Use Only); Complete Time: 19:20 [facility] 10/27 18:01 Order name: XRAY Chest (1 view); Complete Time: 19:20 [facility] 10/27 18:01 Order name: Lipase; Complete Time: 19:20 [facility] 10/27 19:21 Interpretation: Abnormal: LIP 2781. 10/27 18:01 Order name: CT Abd/Pelvis - W/Contrast; Complete Time: 19:59 [facility] 10/27 18:01 Order name: Basic Metabolic Panel; Complete Time: 19:20 EDMS 10/27 19:21 Interpretation: Normal except: K 2.6; BUN 5; CRE 0.51. 10/27 18:01 Order name: CBC with Automated Diff; Complete Time: 19:20 EDMS 10/27 20:09 Interpretation: Normal except: RBC 4.24; PLT 150. 10/27 18:29 Order name: Urine Dipstick--Ancillary (enter results); Complete Time: 19:20 10/27 20:11 Order name: Blood Culture Adult (2) 10/27 18:01 Order name: EKG; Complete Time: 18:02 [facility] 10/27 18:01 Order name: Cardiac monitoring; Complete Time: 18:29 [facility] 10/27 18:01 Order name: EKG - Nurse/Tech; Complete Time: 18:30 [facility] 10/27 18:01 Order name: IV Saline Lock; Complete Time: 18:30 [facility] 10/27 18:01 Order name: Labs collected and sent; Complete Time: 18:30 [facility] 10/27 18:01 Order name: O2 Per Protocol; Complete Time: 18:30 [facility] 10/27 18:01 Order name: O2 Sat Monitoring; Complete Time: 18:30 [facility] 10/27 18:01 Order name: Urine Dipstick-Ancillary (obtain specimen); Complete Time: 18:30 [facility] 10/27 20:01 Order name: Vital Signs: please update; Complete Time: 20:49 cp EC:30 Rate is 113 beats/min. Rhythm is regular. MT interval is normal. QRS interval is cp prolonged at 104 msec. QT interval is normal. T waves are Inverted in lead III. Interpreted by me. Reviewed by me. Administered Medications: 18:35 Drug: Zofran 4 mg Route: IVP; Site: right antecubital; ca1 20:50 Follow up: Response: No adverse reaction; Nausea is decreased ca1 18:38 Drug: morphine 4 mg Route: IVP; Site: right antecubital; ca1 20:50 Follow up: Response: No adverse reaction; Pain is decreased ca1 18:40 Drug: NS 0.9% 1000 ml Route: IV; Rate: 1 bolus; Site: right antecubital; ca1 20:49 Follow up: Urine output 350 ml; IV Status: Completed infusion ca1 18:42 Drug: NS 0.9% 1000 ml Route: IV; Rate: 1 bolus; Site: right antecubital; ca1 20:49 Follow up: IV Status: Completed infusion ca1 19:50 Drug: Potassium Chloride 20 mEq Route: IV; Rate: calculated rate; Site: right ca1 antecubital; 21:52 Follow up: IV Status: Completed infusion ca1 21:52 Follow up: Response: No adverse reaction; IV Status: Completed infusion ca1 19:55 Drug: Magnesium Sulfate 1 grams Route: IVPB; Infused Over: 1 hrs; Site: right ca1 antecubital; 21:20 Follow up: Response: No adverse reaction; IV Status: Completed infusion ca1 20:25 Drug: NS 0.9% 1000 ml Route: IV; Rate: 1 bolus; Site: right antecubital; ca1 21:30 Follow up: Urine output 400 ml; Response: No adverse reaction; IV Status: Completed ca1 infusion 21:00 Drug: morphine 4 mg Route: IVP; Site: right antecubital; ca1 22:00 Follow up: Response: No adverse reaction; Pain is decreased ca1 21:04 Drug: Rocephin - (cefTRIAXone) 1 grams Route: IVPB; Infused Over: 30 mins; Site: right ca1 antecubital; 21:20 Follow up: IV Status: IVP per pharmacy protocol ca1 Disposition: 10/28 09:10 Co-signature as Attending Physician, Prateek Lacey MD I agree with the assessment and beck plan of care. Disposition: 10/27/18 21:17 Transfer ordered to [facility]. Diagnosis are Cholecystitis, Acute pancreatitis. - Reason for transfer: Higher level of care. - Accepting physician is DR Escobedo. - Condition is Stable. - Problem is new. - Symptoms have improved. Signatures: Dispatcher [employer] Prateek Carias MD MD cha Calderon, Audri, RN RN aa5 Prateek Castro PA PA cp Kathy Pruett RN RN ca1 Corrections: (The following items were deleted from the chart) 10/27 20:10 19:20 Normal except: AST 458; ALT 328; ALK 231; BILID 0.5; GLOB 3.9. cp cp 22:28 21:17 10/27/2018 21:17 Transfer ordered to [facility]. Diagnosis is ca1 Cholecystitis; Acute pancreatitis. Reason for transfer: Higher level of care. Accepting physician is DR Escobedo. Condition is Stable. Problem is new. Symptoms have improved. cp
[2018-10-27 23:22] VITALS: TEMP 97.8
[2018-10-27 23:26] VITALS: O2SAT 100
[2018-10-27 23:27] VITALS: BP 151/110
--- NOTE | 2018-10-28 08:11 | EKG ---
Test Date: 2018-10-27 Test Time: 18:25:53 Public Health Sanitarian Technician: LUBNA MEASUREMENT RESULTS: Intervals: Rate: 113 ME: 168 QRSD: 104 QT: 348 QTc: 477 [place]: P: ME: 168 QRS: 84 T: -2 INTERPRETIVE STATEMENTS: Sinus tachycardia Abnormal QRS-T angle, consider primary T wave abnormality Abnormal ECG Compared to ECG 08/13/2015 13:42:18 T-wave abnormality now present Sinus rhythm no longer present Electronically Signed On 10-28-18 07:43:51 CDT by Siddharth De Leon
== END 2018-10-27 22:28 | disposition short-term general hospital (02) ==
LOC: ER 16:19
DX: K81.9 Cholecystitis, unspecified (principal); K85.90 Acute pancreatitis without necrosis or infection, unspecified; I10 Essential (primary) hypertension; F17.210 Nicotine dependence, cigarettes, uncomplicated
CPT/HCPCS: 36415; 71045; 74177; 80048; 80076; 81003; 83690; 83735; 83880; 84484; 85025; 85610; 87040; 93005; 96361; 96365; 96367; 96375; 99285; J0696; J2405; J3475; J7030; Q9967

== ENCOUNTER 2018-12-10 09:57 | Emergency (ER) | payer SELFPAY ==
--- OUTSIDE RECORDS SUMMARY | 2018-12-10 10:01 | XMS REPORT | Clinical Summary ---
:1985 Author Organization [facility] Address [address] [place] [address] Care Team Providers Name Role Phone Pcp, No Primary Care Provider Unavailable Allergies No Known Allergies Medications Medication Sig Dispensed Refills Start Date End Date Status thiamine 100 MG Take 1 tablet 30 tablet 0 10/03/2018 10/03/2019 Active tablet (100 mg total) by mouth daily. lisinopril Take 1 tablet 30 tablet 0 10/03/2018 11/02/2018 (PRINIVIL,ZESTRIL) (20 mg total) 20 MG tablet by mouth daily for 30 days. multivitamin Take 1 tablet 30 tablet 0 10/03/2018 11/02/2018 (THERAGRAN) tablet by mouth daily for 30 days. folic acid Take 1 tablet 30 tablet 0 10/03/2018 11/02/2018 (FOLVITE) 1 MG (1 mg total) tablet by mouth daily for 30 days. LORazepam (ATIVAN) Take 1 tablet 30 tablet 0 10/02/2018 10/02/2018 Discontinued 0.5 MG tablet (0.5 mg total) by mouth every 6 (six) hours as needed for Anxiety for up to 5 days. Max Daily Amount: 2 mg LORazepam (ATIVAN) Take 1 tablet 5 tablet 0 10/02/2018 10/29/2018 Discontinued 0.5 MG tablet (0.5 mg total) by mouth every 6 (six) hours as needed for Anxiety. Max Daily Amount: 2 mg Active Problems Problem Noted Date Alcohol withdrawal syndrome without complication 10/28/2018 Electrolyte disturbance 10/28/2018 Elevated LFTs 10/28/2018 Uncontrolled hypertension 10/02/2018 Alcohol withdrawal 09/29/2018 Alcohol-induced acute pancreatitis 09/29/2018 Acute metabolic encephalopathy 09/29/2018 Encounters Date Type Specialty Care Team Description 10/27/2018 - [facility] General Internal BessFariba rankin Alcohol withdrawal syndrome without complication (HCC); 11/01/2018 Encounter Medicine MD Genia Alcohol-induced acute pancreatitis without infection or necrosis; Maribeth Whalen MD Elevated LFTs; Misbah, Electrolyte disturbance; MD Sue Hallucination, visual; Alcohol withdrawal delirium (HCC) 09/29/2018 - [facility] Internal Valarie Cannon MD Alcohol withdrawal syndrome, with delirium (HCC); 10/02/2018 Encounter Medicine Jonathan Mccurdy Alcohol-induced acute pancreatitis, unspecified complication status; MD Natacha Acute metabolic encephalopathy; Maribeth Whalen MD Colitis; Acute alcoholic hepatitis; Alcohol-induced acute pancreatitis without infection or necrosis; Electrolyte disturbance; Essential hypertension; Uncontrolled hypertension 09/29/2018 Orders Only General Internal Medicine after 12/09/2017 Family History Medical History Relation Name Comments Hypertension Mother Relation Name Status Comments Mother Social History Tobacco Use Types Packs/Day Years Used Date Current Every Day Smoker Cigarettes 2 Tobacco Cessation: Ready to Quit: No; Counseling Given: Yes Alcohol Use Drinks/Week oz/Week Comments Yes 1 pint of vodka every day for 9 months Sex Assigned at Date Recorded Not on file Job Start Date Occupation Industry Not on file Not on file Not on file Travel History Travel Start Travel End No recent travel history available. Last Filed Vital Signs Vital Sign Reading Time Taken Blood Pressure 173/103 11/01/2018 3:38 PM CDT Pulse 106 11/01/2018 3:38 PM CDT Temperature 37 C (98.6 F) 11/01/2018 3:38 PM CDT Respiratory Rate 18 11/01/2018 3:38 PM CDT Oxygen Saturation 98% 11/01/2018 3:38 PM CDT Inhaled Oxygen Concentration - - Weight 70.2 kg (154 lb 12.2 oz) 10/02/2018 6:00 AM CDT Height 182.9 cm (6') 11/01/2018 12:26 PM CDT Body Mass Index 20.99 10/02/2018 6:00 AM CDT Plan of Treatment Not on file Procedures Procedure Name Priority Date/Time Associated Comments Diagnosis US ABDOMINAL WITH STAT 10/31/2018 9:52 Results for this DOPPLER AM CDT procedure are in the results section. COMPREHENSIVE Routine 10/31/2018 5:33 Results for this METABOLIC PANEL AM CDT procedure are in the results section. CBC W/PLT COUNT & AUTO Routine 10/30/2018 3:54 Results for this DIFFERENTIAL AM CDT procedure are in the results section. CBC W/PLT COUNT & AUTO Routine 10/30/2018 3:54 Results for this DIFFERENTIAL AM CDT procedure are in the results section. COMPREHENSIVE Routine 10/30/2018 3:54 Results for this METABOLIC PANEL AM CDT procedure are in the results section. HEMOGLOBIN A1C Routine 10/30/2018 3:54 Results for this AM CDT procedure are in the results section. XR ABDOMEN 1 VIEW Routine 10/29/2018 1:13 Results for this PM CDT procedure are in the results section. LIPID PANEL Routine 10/29/2018 4:13 Results for this AM CDT procedure are in the results section. PHOSPHORUS Routine 10/29/2018 4:13 Results for this AM CDT procedure are in the results section. PROTHROMBIN TIME/INR Routine 10/29/2018 4:13 Results for this AM CDT procedure are in the results section. COMPREHENSIVE Routine 10/29/2018 4:13 Results for this METABOLIC PANEL AM CDT procedure are in the results section. STD PANEL - CT/GC RNA Routine 10/28/2018 5:53 Results for this PM CDT procedure are in the results section. URINALYSIS W/ REFLEX Routine 10/28/2018 5:52 Results for this URINE CULTURE PM CDT procedure are in the results section. XR CHEST 1 VIEW Routine 10/28/2018 1:27 Results for this PORTABLE/BEDSIDE PM CDT procedure are in the results section. BLOOD CULTURE Routine 10/28/2018 12:40 Results for this PM CDT procedure are in the results section. RPR Routine 10/28/2018 12:22 Results for this PM CDT procedure are in the results section. VITAMIN B12 AND FOLATE Routine 10/28/2018 12:22 Results for this PM CDT procedure are in the results section. FERRITIN Routine 10/28/2018 12:22 Results for this PM CDT procedure are in the results section. IRON, TIBC, % SAT. Routine 10/28/2018 12:22 Results for this (WITHOUT FERRITIN) PM CDT procedure are in the results section. HEPATITIS C PCR, Routine 10/28/2018 12:22 Results for this QUANTITATIVE PM CDT procedure are in the results section. HEPATITIS C ANTIBODY Routine 10/28/2018 12:22 Results for this PM CDT procedure are in the results section. HEPATITIS B CORE Routine 10/28/2018 12:22 Results for this ANTIBODY, TOTAL PM CDT procedure are in the results section. HEPATITIS B SURFACE Routine 10/28/2018 12:22 Results for this ANTIGEN PM CDT procedure are in the results section. HEPATITIS B SURFACE Routine 10/28/2018 12:22 Results for this ANTIBODY PM CDT procedure are in the results section. HEPATITIS A ANTIBODY, Routine 10/28/2018 12:22 Results for this IGM PM CDT procedure are in the results section. HEPATITIS A ANTIBODY, Routine 10/28/2018 12:22 Results for this IGG PM CDT procedure are in the results section. HIV-1 ANTIGEN WITH Routine 10/28/2018 12:22 Results for this HIV-1/2 ANTIBODY PM CDT procedure are in the results section. PROTHROMBIN TIME/INR Routine 10/28/2018 12:22 Results for this PM CDT procedure are in the results section. BLOOD CULTURE Routine 10/28/2018 12:21 Results for this PM CDT procedure are in the results section. CBC W/PLT COUNT & AUTO Routine 10/28/2018 2:54 Results for this DIFFERENTIAL AM CDT procedure are in the results section. PHOSPHORUS Routine 10/28/2018 2:54 Results for this AM CDT procedure are in the results section. MAGNESIUM Routine 10/28/2018 2:54 Results for this AM CDT procedure are in the results section. CBC W/PLT COUNT & AUTO Routine 10/28/2018 2:54 Results for this DIFFERENTIAL AM CDT procedure are in the results section. COMPREHENSIVE Routine 10/28/2018 2:54 Results for this METABOLIC PANEL AM CDT procedure are in the results section. RHYTHM STRIP - SCAN 10/03/2018 1:41 PM [...] 326 ms QTC Calculation(Bazett) 523 ms P [place] 60 degrees R [place] 81 degrees T [place] 13 degrees Sinus tachycardia Cannot rule out Anterior infarct , age undetermined T wave abnormality, consider inferolateral ischemia Abnormal ECG No previous ECGs available ECG 12-LEAD Routine 09/29/2018 3:45 AM CDT after 12/09/2017 Results US abdominal with doppler (10/31/2018 9:52 AM CDT) Specimen Narrative Performed At FINAL REPORT [employer] [facility] Abdominal Doppler Ultrasound Clinical Diagnosis: Portal hypertension and cirrhosis choledocholithiasis and cholecystitis Comparison: September 30, 2018 Technique: Multiple transaxial and longitudinal images were obtained through the abdomen with real time ultrasonography.In addition, color Doppler and spectral waveform analysis evaluation of the abdominal vasculature was performed.FiveMHz transducer was utilized.115 images were submitted for interpretation. Report: Liver: The liver measures 21.1 cm in the right midaxillary line. There are no focal masses.The echogenicity is heterogeneous. Spleen: The spleen measures 12.8 cm in the left mid axillary line. Gallbladder: The transverse diameter is 2.2 cm.The wall measures three mm.There are no shadowing stones visualized. Biliary tree: There is no evidence of intra or extra hepatic biliary ductal dilatation.The common bile duct measures eight mm. Portal vein: The portal vein measures 11 mm. Pancreas:The pancreatic tail is not well seen secondary to overlying bowel gas. Ascites: Negative Pleural Effusion: Negative Right kidney: The right kidney measures 11.6 cm in length without evidence of hydronephrosis. The cortex measures 1.4 cm Left kidney: Theleft kidney measures 12.1 cm in length without evidence of hydronephrosis. The cortex measures 2.0 cm Midline abdominal structures: Maximum transverse dimension the aorta is 2.2 cm proximally IVC: Patient Hepatic veins: Visualized with phasic venous waveforms Aorta dimensions: Maximum transverse dimension of aorta is 2.2 cm proximally Hepatic arteries: The proper hepatic, right hepatic and left hepatic arteries are visualized with normal resistive indices and normal arterial waveforms Portal vein:The peak systolic velocity measured 71 cm/sec which is increased. The direction of flow is hepatopedal. The right portal vein is well-visualized with hepatopedal flow.The left portal vein is well-visualized with hepatopedal flow. Splenic vein:The splenic vein at the portal confluence is patent and demonstrates hepatopedal flow. Impression: Hepatomegaly with heterogeneous echogenicity of the liver. No evidence of gallbladder distention or cholelithiasis. The common bile duct is minimally prominent at 8 mm. Unremarkable abdominal Doppler ultrasound. Signed: Marilu Sharpe MD Report Verified Date/Time:10/31/2018 10:43:58 Reading Location: [address] Ultrasound Reading Room Procedure Note Interface, External Ris In - 10/31/2018 10:46 AM CDT FINAL REPORT Abdominal Doppler Ultrasound Clinical Diagnosis: Portal hypertension and cirrhosis choledocholithiasis and cholecystitis Comparison: September 30, 2018 Technique: Multiple transaxial and longitudinal images were obtained through the abdomen with real time ultrasonography. In addition, color Doppler and spectral waveform analysis evaluation of the abdominal vasculature was performed. Five MHz transducer was utilized. 115 images were submitted for interpretation. Report: Liver: The liver measures 21.1 cm in the right midaxillary line. There are no focal masses. The echogenicity is heterogeneous. Spleen: The spleen measures 12.8 cm in the left mid axillary line. Gallbladder: The transverse diameter is 2.2 cm. The wall measures three mm. There are no shadowing stones visualized. Biliary tree: There is no evidence of intra or extra hepatic biliary ductal dilatation. The common bile duct measures eight mm. Portal vein: The portal vein measures 11 mm. Pancreas: The pancreatic tail is not well seen secondary to overlying bowel gas. Ascites: Negative Pleural Effusion: Negative Right kidney: The right kidney measures 11.6 cm in length without evidence of hydronephrosis. The cortex measures 1.4 cm Left kidney: The left kidney measures 12.1 cm in length without evidence of hydronephrosis. The cortex measures 2.0 cm Midline abdominal structures: Maximum transverse dimension the aorta is 2.2 cm proximally IVC: Patient Hepatic veins: Visualized with phasic venous waveforms Aorta dimensions: Maximum transverse dimension of aorta is 2.2 cm proximally Hepatic arteries: The proper hepatic, right hepatic and left hepatic arteries are visualized with normal resistive indices and normal arterial waveforms Portal vein: The peak systolic velocity measured 71 cm/sec which is increased. The direction of flow is hepatopedal. The right portal vein is well-visualized with hepatopedal flow. The left portal vein is well-visualized with hepatopedal flow. Splenic vein: The splenic vein at the portal confluence is patent and demonstrates hepatopedal flow. Impression: Hepatomegaly with heterogeneous echogenicity of the liver. No evidence of gallbladder distention or cholelithiasis. The common bile duct is minimally prominent at 8 mm. Unremarkable abdominal Doppler ultrasound. Signed: Marilu Sharpe MD Report Verified Date/Time: 10/31/2018 10:43:58 Reading Location: [address] Ultrasound Reading Room Performing Organization Address City/State/Zipcode Phone Number [employer] Comprehensive metabolic panel (10/31/2018 5:33 AM CDT)Only the most recent of8 resultswithin the time period is included. Protein, Total 6.3 6.0 - 8.3 gm/dL [facility] Albumin 3.4 (L) 3.5 - 5.0 g/dL [facility] Alkaline Phosphatase 165 (H) 40 - 150 U/L [facility] Total Bilirubin 0.6 0.2 - 1.2 mg/dL [facility] Sodium 140 136 - 145 meq/L [facility] Potassium 3.6 3.5 - 5.1 meq/L [facility] Chloride 102 98 - 107 meq/L [facility] CO2 29 22 - 29 meq/L [facility] BUN 3 (L) 7 - 21 mg/dL [facility] Creatinine 0.55 (L) 0.57 - 1.25 mg/dL [facility] Glucose 89 70 - 105 mg/dL [facility] Calcium 9.2 8.4 - 10.2 mg/dL [facility] AST 184 (H) 5 - 34 U/L [facility] ALT 156 (H) 6 - 55 U/L [facility] EGFR 173Comment: ESTIMATED mL/min/1.[address] [facility] GFR IS NOT ACCURATE [facility] CREATININE CLEARANCE IN PREDICTING GLOMERULAR FILTRATION RATE. ESTIMATED GFR IS NOT APPLICABLE FOR DIALYSIS PATIENTS. Specimen Blood Performing Organization Address City/State/Zipcode Phone Number [facility] [address] [place] [address] CENTER CBC with platelet count + automated diff (10/30/2018 3:54 AM CDT)Only the most recent of6 resultswithin the time period is included. WBC 3.4 (L) 3.5 - 10.5 K/L [facility] RBC 3.45 (L) 4.63 - 6.08 M/L [facility] Hemoglobin 11.8 (L) 13.7 - 17.5 GM/DL [facility] Hematocrit 34.4 (L) 40.1 - 51.0 % [facility] MCV 99.7 (H) 79.0 - 92.2 fL [facility] MCH 34.2 (H) 25.7 - 32.2 pg [facility] MCHC 34.3 32.3 - 36.5 GM/DL [facility] RDW 12.2 11.6 - 14.4 % [facility] Platelets 175 150 - 450 K/CU MM [facility] MPV 10.3 9.4 - 12.4 fL [facility] nRBC 0 0 - 0 /100 WBC [facility] % Neutros 55 % [facility] % Lymphs 30 % [facility] % Monos 11 % [facility] % Eos 3 % [facility] % Baso 1 % [facility] # Neutros 1.89 1.78 - 5.38 K/L [facility] # Lymphs 1.03 (L) 1.32 - 3.57 K/L [facility] # Monos 0.39 0.30 - 0.82 K/L [facility] # Eos 0.09 0.04 - 0.54 K/L [facility] # Baso 0.03 0.01 - 0.08 K/L [facility] Immature Granulocytes-Relative 0 0 - 1 % [facility] Specimen Blood Performing Organization Address City/State/Zipcode Phone Number [address] [address] [phone] [place] Hemoglobin A1c (10/30/2018 3:54 AM CDT) Hemoglobin A1C 4.9 4.3 - 6.1 % [facility] Specimen Blood Performing Organization Address City/State/Zipcode Phone Number [address] [address] [place] XR abdomen / KUB 1 view (10/29/2018 1:13 PM CDT) Specimen Narrative Performed At FINAL REPORT [employer] TECHNIQUE: Supine radiographs of the abdomen dated 10/29/2018. HISTORY: Abdominal distention. COMPARISON: None IMPRESSION: No air-filled, dilated loops of bowel to suggest obstruction. No free intraperitoneal air. No abnormal soft tissue mass or calcification. Signed: Nancy Concepcion MD Report Verified Date/Time:10/29/2018 14:17:17 Reading Location: [facility] Radiology Reading Room Procedure Note Interface, External Ris In - 10/29/2018 2:19 PM CDT FINAL REPORT TECHNIQUE: Supine radiographs of the abdomen dated 10/29/2018. HISTORY: Abdominal distention. COMPARISON: None IMPRESSION: No air-filled, dilated loops of bowel to suggest obstruction. No free intraperitoneal air. No abnormal soft tissue mass or calcification. Signed: Nancy Concepcion MD Report Verified Date/Time: 10/29/2018 14:17:17 Reading Location: [facility] Radiology Reading Room Performing Organization Address City/State/Zipcode Phone Number RIS Prothrombin time/INR (10/29/2018 4:13 AM CDT)Only the most recent of3 resultswithin the time period is included. Protime 16.0 (H) 11.7 - 14.7 seconds [facility] INR 1.3 <=5.9 [facility] Specimen Blood Narrative Performed At RECOMMENDED COUMADIN/WARFARIN INR THERAPY [facility] RANGES STANDARD DOSE: 2.0 - 3.0 Includes: PROPHYLAXIS for venous thrombosis, systemic embolization; TREATMENT for venous thrombosis and/or pulmonary embolus. HIGH RISK: Target INR is 2.5-3.5 for patients with mechanical heart valves. Performing Organization Address City/State/Zipcode Phone Number [address] [address] CENTER Phosphorus (10/29/2018 4:13 AM CDT)Only the most recent of7 resultswithin the time period is included. Phosphorus 2.5 2.3 - 4.7 mg/dL [facility] Specimen Blood Performing Organization Address [facility] Phone Number [facility] [address] [place] [address] [phone] [place] Lipid panel (10/29/2018 4:13 AM CDT) Triglycerides 90 mg/dL [facility] Cholesterol 140 mg/dL [facility] HDL 37 mg/dL [facility] LDL Calculated 85 mg/dL [facility] Specimen Blood Narrative Performed At Triglyceride Reference Range: [facility] Low Risk <150 [id number] High Risk 200-499 Very High Risk>=500 Cholesterol Reference Range: Low Risk <200 [id number] High Risk>240 HDL Cholesterol Reference Range: Low Risk >=60 High Risk <40 LDL Cholesterol Reference Range: Optimal<100 Near [id number] Very High >=190 Performing Organization Address [facility] Phone Number [place] [phone] [place], [place] [phone] [place] STD Panel - CT/GC RNA (10/28/2018 5:53 PM CDT) C. trachomatis RNA, TMA NOT DETECTED [facility] N. gonorrhoeae RNA, TMA NOT DETECTED [facility] Comment: [facility] REFERENCE RANGE:NOT DETECTED This test was performed using the APTIMA(R) COMBO2 Assay (GEN-PROBE). Specimen Urine Narrative Performed At Performing Lab [facility] *[facility] [place] [facility] [id number] [place] [phone] Maico Villarreal MD Performing Organization Address [facility] Phone Number [facility] [place] [address] [address] [place] [address] Urinalysis w/Microscopic + Reflex to Culture (10/28/2018 5:52 PM CDT) Color, UA Yellow [facility] Clarity, UA Clear [facility] Specific Dexter, UA 1.007 1.001 - 1.035 [facility] pH, UA 7.5 5.0 - 8.0 [facility] Protein, UA 20 mg/dL (A) Negative [facility] Glucose, UA Negative Negative [facility] Ketones, UA 20 mg/dL (A) Negative [facility] Bilirubin, UA Negative Negative [facility] Blood, UA Trace (A) Negative [facility] Nitrite, UA Negative Negative [facility] Leukocytes, UA Negative Negative [facility] Urobilinogen, UA 2.0 (H) 0.2 - 1.0 mg/dL [facility] RBC, UA 3 /HPF [facility] WBC, UA <1 /HPF [facility] Mucus Rare [facility] Specimen Source [facility] Specimen Urine Performing Organization Address City/State/Zipcode Phone Number [facility] [address] [place] [address] CENTER XR chest 1 view portable / bedside (10/28/2018 1:27 PM CDT) Specimen Narrative Performed At Addendum Begins GE RIS REPORT STATUS:A Addendum: Clinical diagnosis alcohol withdrawal syndrome, electrolyte disturbances, elevated liver function tests, pneumonia, Signed: Marilu Sharpe MD Report Verified Date/Time:11/01/2018 13:13:23 Reading Location: [facility] B1 [id number] Consult Reading Room Addendum Ends FINAL REPORT Chest radiograph Clinical History: Evaluate for pneumonia Comparison: No comparison Views: One Chest x-ray: The cardiac and mediastinal silhouettes are unremarkable.There is no evidence of a pneumothorax.There is no evidence of apleural effusion.There is no evidence of overt cardiac failure.The visible regional skeleton is intact.There is no evidence of a focal parenchymal opacity. Impression: No active cardiopulmonary disease. Signed: Marilu Sharpe MD Report Verified Date/Time:10/28/2018 15:36:38 Reading Location: [facility] C013 Consult Reading Room Procedure Note Interface, External Ris In - 11/01/2018 1:15 PM CDT Addendum Begins REPORT STATUS:A Addendum: Clinical diagnosis alcohol withdrawal syndrome, electrolyte disturbances, elevated liver function tests, pneumonia, Signed: Marilu Sharpe MD Report Verified Date/Time: 11/01/2018 13:13:23 Reading Location: [address] Consult Reading Room Addendum Ends FINAL REPORT Chest radiograph Clinical History: Evaluate for pneumonia Comparison: No comparison Views: One Chest x-ray: The cardiac and mediastinal silhouettes are unremarkable. There is no evidence of a pneumothorax. There is no evidence of a pleural effusion. There is no evidence of overt cardiac failure. The visible regional skeleton is intact. There is no evidence of a focal parenchymal opacity. Impression: No active cardiopulmonary disease. Signed: Marilu Sharpe MD Report Verified Date/Time: 10/28/2018 15:36:38 Reading Location: [facility] C013 Consult Reading Room Performing Organization Address [facility] Phone Number [facility] Blood Culture - Routine (Right Venipuncture) (10/28/2018 12:40 PM CDT)Only the most recent of2 resultswithin the time period is included. Result No growth in 5 days [facility] Specimen Blood Performing Organization Address [facility] [facility] Phone Number [address] [address] CENTER Hepatitis A antibody, IgG (10/28/2018 12:22 PM CDT) Hep A IgG Nonreactive Nonreactive [facility] Specimen Blood Performing Organization Address [facility] Phone Number [address] [address] [phone] CENTER Vitamin B12 and Folate (10/28/2018 12:22 PM CDT) Vitamin B12 1,678 (H) 213 - 816 pg/mL [facility] Folate 19.4 >=7.0 ng/mL [facility] Specimen Blood Performing Organization Address City[facility] Phone Number [address] [address] CENTER Iron, TIBC, % sat. (without ferritin) (10/28/2018 12:22 PM CDT) Iron 44.0 40.0 - 160.0 ug/dL [facility] TIBC 186 (L) 250 - 450 ug/dL [facility] Iron % Saturation 24 20 - 55 % [facility] Specimen Blood Performing Organization Address [facility] Phone Number [address] [address] [phone] CENTER HIV-1 Antigen with HIV-1/2 Antibody (10/28/2018 12:22 PM CDT) HIV-1 Antigen with HIV 1&2 NON-REACTIVE Nonreactive [facility] Specimen Blood Performing Organization Address [facility] Phone Number [address] [address] CENTER Hepatitis C antibody (10/28/2018 12:22 PM CDT) Hepatitis C Ab NON-REACTIVE Nonreactive [facility] Specimen Blood Performing Organization Address City/[facility]/Zipcode Phone Number [address] [address] CENTER Hepatitis A antibody, IgM (10/28/2018 12:22 PM CDT) Hep A IgM HEPATITIS A TEST NEGATIVE Nonreactive [facility] Specimen Blood Performing Organization Address [facility]/Zipcode Phone Number [address] [address] CENTER Hepatitis B core antibody, total (10/28/2018 12:22 PM CDT) Hep B Core Total Ab NON-REACTIVE Nonreactive [facility] Specimen Blood Performing Organization Address [facility] Phone Number [address] [phone] [place] Hepatitis C PCR, Quantitative (10/28/2018 12:22 PM CDT) HCV PCR, Quantitative HCV RNA not detected HCV RNA not detected [facility] Specimen Blood Narrative Performed At This test uses a Real-Time Polymerase Chain [facility] Reaction (RT-PCR) methodology and was performed using MARIANO Ampliprep/MARIANO TaqMan HCV test kit version 2.0 ([employer]). Reportable range for this assay is 15 - 100,000,000 IU per mL (1.18 - 8.00 Log IU/mL). Performing Organization Address [facility] Phone Number [address] [address] [phone] CENTER RPR (10/28/2018 12:22 PM CDT) RPR Nonreactive Nonreactive [facility] Specimen Blood Performing Organization Address [facility] Phone Number [address] [address] [place] Hepatitis B surface antibody (10/28/2018 12:22 PM CDT) Hep B S Ab 34.5 (H) <8.0 mIU/mL [facility] Specimen Blood Performing Organization Address [facility]/Zipcode Phone Number [address] [address] [place] Hepatitis B surface antigen (10/28/2018 12:22 PM CDT) hepatitis B Surface Ag NON-REACTIVE Nonreactive [facility] Specimen Blood Performing Organization Address [facility]/Zipcode Phone Number [address] [place] [address] [place] Ferritin (10/28/2018 12:22 PM CDT) Ferritin 1,698 (H) 5 - 275 ng/mL [facility] Specimen Blood Performing Organization Address [facility] Phone Number [address] [address] [place] Magnesium (10/28/2018 2:54 AM CDT)Only the most recent of9 resultswithin the time period is included. Magnesium 1.5 (L) 1.6 - 2.6 mg/dL [facility] Specimen Blood Performing Organization Address [facility] [place] [address] [place] RHYTHM STRIP - SCAN (10/03/2018 1:41 PM CDT) Narrative Performed At POC-Glucose meter (10/02/2018 12:12 PM CDT)Only the most recent of8 resultswithin the time period is included. POC-Glucose Meter 99Comment: TESTED AT 70 - 110 mg/dL [address] [address] Specimen Blood Performing Organization Address [facility] Phone Number [address] [address] [place] Lactic acid, venous, Daily (2018 4:59 AM CDT)Only the most recent of3 resultswithin the time period is included. Lactate, Venous 1.0 0.5 - 2.2 mmol/L [facility] Specimen Blood Performing Organization Address [facility] Phone Number [address] [phone] [place] Basic Metabolic Panel (09/30/2018 5:18 PM CDT)Only the most recent of3 resultswithin the time period is included. Sodium 137 136 - 145 meq/L [facility] Potassium 3.6 3.5 - 5.1 meq/L [facility] Chloride 102 98 - 107 meq/L [facility] CO2 26 22 - 29 meq/L [facility] BUN 4 (L) 7 - 21 mg/dL [facility] Creatinine 0.54 (L) 0.57 - 1.25 mg/dL [facility] Glucose 123 (H) 70 - 105 mg/dL [facility] Calcium 8.7 8.4 - 10.2 mg/dL [facility] EGFR 177Comment: ESTIMATED GFR IS mL/min/1.73 sq m [facility] NOT ACCURATE CREATININE [facility] CENTER CLEARANCE IN PREDICTING GLOMERULAR FILTRATION RATE. ESTIMATED GFR IS NOT APPLICABLE FOR DIALYSIS PATIENTS. Specimen Blood Performing Organization Address City/State/Zipcode Phone Number [facility] [address] [place] [address] CENTER US abdomen limited (09/30/2018 5:40 AM CDT) Specimen Narrative Performed At FINAL REPORT Snapt Right upper quadrant abdominal ultrasound, 09/30/2018. History: [...] MD Report Verified Date/Time:09/30/2018 08:05:48 Reading Location: [address] Ultrasound Reading Room Procedure Note Interface, [...] Report Verified Date/Time: 09/30/2018 08:05:48 Reading Location: [address] Ultrasound Reading Room Performing Organization Address City/State/Zipcode Phone Number [facility] Procalcitonin (09/30/2018 12:14 AM CDT) Procalcitonin 0.48 (H) <0.05 ng/mL [facility] Specimen Blood Narrative Performed At SEPSIS RISK (ng/mL) [facility] Low:0.05-0.50 Intermediate: 0.51-2.00 High: >=2.01 Performing Organization Address [facility]/Zipcode Phone Number [address] [phone] [place] Potassium (09/29/2018 2:14 PM CDT) Potassium 3.4 (L) 3.5 - 5.1 meq/L [facility] Specimen Blood Performing Organization Address [facility] Phone Number [address] [place] [address] abdomen/pelvis without & with IV contrast (09/29/2018 12:30 PM CDT) Specimen Narrative Performed At FINAL REPORT [facility] CT abdomen with and without contrast. CT [...] which underlying colitis cannot be excluded. Signed: Junito Gómez MD Report Verified Date/Time:09/29/2018 12:38:07 Reading Location: [facility] C013X Ortho Consult Reading Room Procedure Note Interface, External [...] which underlying colitis cannot be excluded. Signed: Junito Gómez MD Report Verified Date/Time: 09/29/2018 12:38:07 Reading Location: [facility] C013X Ortho Consult Reading Room Performing Organization Address [facility] Phone Number [facility] Triglycerides (09/29/2018 3:51 AM CDT) Triglycerides 71Comment: Specimen slightly mg/dL [facility] hemolyzed [facility] Specimen Blood Narrative Performed At TRIGLYCERIDE REFERENCE RANGE [facility] Low Risk<150 Borderline Risk 150-199 High [id number] Very High Risk >=500 Performing Organization Address [facility] Phone Number [address] [address] [phone] [place] Lipase (09/29/2018 3:51 AM CDT) Lipase >1200 (H) 8 - 78 U/L [facility] Specimen Blood Performing Organization Address [facility] Phone Number [place] [phone] [place] [address] [phone] [place] ECG 12 lead (09/29/2018 3:45 AM CDT) Specimen Narrative Performed At Ventricular Rate 155 BPM GE MUSE Atrial Rate 155 BPM P-R Interval 120 ms QRS Duration 88 ms Q-T Interval 326 ms QTC Calculation(Bazett) 523 ms P [place] 60 degrees R [place] 81 degrees T [place] 13 degrees Sinus tachycardia Cannot rule out Anterior infarct , age undetermined T wave abnormality, consider inferolateral ischemia Abnormal ECG No previous ECGs available Confirmed by MD Rosado Roberto ([id number]) on 09/29/2018 2:19:06 PM Procedure Note Interface, External Ris In - 09/29/2018 2:19 PM CDT Ventricular Rate 155 BPM Atrial Rate 155 BPM P-R Interval 120 ms QRS Duration 88 ms Q-T Interval 326 ms QTC Calculation(Bazett) 523 ms P [place] 60 degrees R [place] 81 degrees T [place] 13 degrees Sinus tachycardia Cannot rule out Anterior infarct , age undetermined T wave abnormality, consider inferolateral ischemia Abnormal ECG No previous ECGs available Confirmed by MD Rosado Roberto ([id number]) on 09/29/2018 2:19:06 PM Performing Organization Address City/State/Zipcode Phone Number GE MUSE after 12/09/2017 Advance Directives For more information, please contact:[address] [phone] Code Status Date Activated Date Inactivated Comments Full Code 10/27/2018 11:55 PM 11/01/2018 6:16 PM This code status was determined by: Patient Full Code 09/29/2018 3:15 AM 10/02/2018 6:49 PM This code status was determined by: Patient
--- OUTSIDE RECORDS SUMMARY | 2018-12-10 10:02 | XMS REPORT ---
:1985 [facility] Address [address] [place] [address] Dr. Romano [address] [place] [id number] Care Team Providers Name Role Phone YENNY NELSON Unavailable Unavailable ИВАН REMY Unavailable Unavailable Problems This patient has no known problems. Allergies, Adverse Reactions, Alerts This patient has no known allergies or adverse reactions. Medications This patient has no known medications. Results Test Description Test Time Test Comments Text Results Atomic Results Result Comments BLOOD CULTURE 2018-11-02 20:01:00 Test Item Value Reference Range Comments CULTURE (BEAKER) (test hnai=8069) No growth in 5 days BLOOD [id number] 20:01:00 Test Item Value Reference Range Comments CULTURE (BEAKER) (test syob=8390) No growth in 5 days RAD, CHEST, 1 VIEW, NON [id number] 13:13:00Reason for exam:->evalute for pneumoniaShould this be performed at the bedside?->YesAddendum BeginsREPORT STATUS:A Addendum:Clinical diagnosis alcohol withdrawalsyndrome, electrolyte disturbances, elevated liver function tests, pneumonia, Signed: Michael Sharpe MDReport Verified Date/Time: 11/01/2018 13:13: 23 Reading Location: [facility] C013 Consult Reading RoomAddendum EndsFINAL REPORT Chest radiograph Clinical History: Evaluate for pneumoniaComparison: No comparisonViews: One Chest x-ray:The cardiac and mediastinal silhouettes are unremarkable. There is no evidence of a pneumothorax. There is no evidence of a pleural effusion. There is no evidence of overt cardiac failure. The visible regional skeleton is intact. There is no evidence of a focal parenchymal opacity. Impression:No active cardiopulmonary disease. Signed: Michael Sharpe MDReport Verified Date/Time: 10/28 15:36:38 Reading Location: [facility] B1 C013W Consult Reading Room U/S, ABDOMINAL, WITH [id number] 10:43:00Reason for exam:->evaluate for portal hypertension, cirrhosis, portal vein thrombosis, choledocholithiasis, cholecystitisFINAL REPORT Abdominal Doppler Ultrasound Clinical Diagnosis: Portal hypertension and cirrhosis choledocholithiasis and cholecystitis Comparison: September 30, 2018 Technique: Multiple transaxial and longitudinal images were obtained through the abdomen with real time ultrasonography. In addition, color Doppler and spectral waveform analysis evaluation of the abdominal vasculature was performed. Five MHz transducer was utilized. 115 images were submitted for interpretation. Report:Liver: The liver measures 21.1 cm in the right midaxillary line. There are no focal masses. The echogenicity is heterogeneous.Spleen: The spleen measures 12.8 cm in the left mid axillary line. Gallbladder: The transverse diameter is 2.2 cm. The wall measures three mm. There are no shadowing stones visualized. Biliary tree: There is no evidence of intra or extra hepatic biliary ductal dilatation. The common bile duct measures eight mm.Portal vein: The portal vein measures 11 mm. Pancreas: The pancreatic tail is not well seen secondary to overlying bowel gas. Ascites: NegativePleural Effusion: NegativeRight kidney: The right kidney measures 11.6 cm in length without evidenceof hydronephrosis. The cortex measures 1.4 cmLeft kidney: The left kidney measures 12.1 cm in length without evidence of hydronephrosis. The cortex measures 2.0 cmMidline abdominal structures: Maximumtransverse dimension the aorta is 2.2 cm proximally IVC: PatientHepatic veins: Visualized with phasic venous waveformsAorta dimensions: Maximum transverse dimension of aorta is 2.2 cm proximallyHepaticarteries: The proper hepatic, right hepatic and left hepatic arteries are visualized with normal resistive indices and normal arterial waveforms Portal vein: The peak systolic velocity measured 71 cm/sec which is increased. The direction of flow is hepatopedal. The right portal vein is well-visualized with hepatopedal flow. The left portal vein is well- visualized with hepatopedal flow. Splenic vein: The splenic vein at the portal confluence is patent and demonstrates hepatopedal flow. Impression: Hepatomegaly with heterogeneous echogenicity of the liver.No evidence of gallbladder distention or cholelithiasis. The common bile duct is minimally prominent at 8 mm.Unremarkable abdominal Dopplerultrasound. Signed: Michael Sharpe Verified Date/Time: 10/31/2018 10:43:58 Reading Location: [address] Ultrasound Reading Room COMPREHENSIVE METABOLIC [id number] 06:57:00 Test Item Value Reference Range Comments TOTAL PROTEIN (BEAKER) 6.3 gm/dL 6.0-8.3 (test ptuc=730) ALBUMIN (BEAKER) (test 3.4 g/dL 3.5-5.0 bzpg=1346) ALKALINE PHOSPHATASE 165 U/L 40-150 (BEAKER) (test kbif=666) BILIRUBIN TOTAL (BEAKER) 0.6 mg/dL 0.2-1.2 (test zwdk=823) SODIUM (BEAKER) (test 140 meq/L 136-145 jwgi=936) POTASSIUM (BEAKER) (test 3.6 meq/L 3.5-5.1 toth=924) CHLORIDE (BEAKER) (test 102 meq/L 98-107 vasz=086) CO2 (BEAKER) (test 29 meq/L 22-29 drxo=826) BLOOD UREA NITROGEN 3 mg/dL 7-21 (BEAKER) (test sytk=390) CREATININE (BEAKER) (test 0.55 mg/dL 0.57-1.25 juna=172) GLUCOSE RANDOM (BEAKER) 89 mg/dL 70-105 (test rzwk=379) CALCIUM (BEAKER) (test 9.2 mg/dL 8.4-10.2 chss=590) AST (SGOT) (BEAKER) (test 184 U/L 5-34 wjfb=394) ALT (SGPT) (BEAKER) (test 156 U/L 6-55 hpyz=295) EGFR (BEAKER) (test 173 mL/min/1.73 sq ESTIMATED GFR IS NOT zlrn=2839) m ACCURATE CREATININE CLEARANCE IN PREDICTING GLOMERULAR FILTRATION RATE. ESTIMATED GFR IS NOT APPLICABLE FOR DIALYSIS PATIENTS. HEMOGLOBIN [id number] 09:30:00 Test Item Value Reference Range Comments HEMOGLOBIN A1C (BEAKER) (test mdtp=296) 4.9 % 4.3-6.1 COMPREHENSIVE METABOLIC [id number] 05:17:00 Test Item Value Reference Range Comments TOTAL PROTEIN (BEAKER) 6.5 gm/dL 6.0-8.3 (test vijh=819) ALBUMIN (BEAKER) (test 3.6 g/dL 3.5-5.0 oalh=8357) ALKALINE PHOSPHATASE 170 U/L 40-150 (BEAKER) (test rywk=724) BILIRUBIN TOTAL (BEAKER) 0.9 mg/dL 0.2-1.2 (test ijmr=516) SODIUM (BEAKER) (test 141 meq/L 136-145 mjdu=095) POTASSIUM (BEAKER) (test 3.5 meq/L 3.5-5.1 btop=166) CHLORIDE (BEAKER) (test 104 meq/L 98-107 ystf=850) CO2 (BEAKER) (test 26 meq/L 22-29 ozum=433) BLOOD UREA NITROGEN 4 mg/dL 7-21 (BEAKER) (test jrty=403) CREATININE (BEAKER) (test 0.55 mg/dL 0.57-1.25 xkyd=716) GLUCOSE RANDOM (BEAKER) 89 mg/dL 70-105 (test arcc=988) CALCIUM (BEAKER) (test 9.3 mg/dL 8.4-10.2 ueun=918) AST (SGOT) (BEAKER) (test 167 U/L 5-34 bajf=621) ALT (SGPT) (BEAKER) (test 156 U/L 6-55 kpxw=314) EGFR (BEAKER) (test 173 mL/min/1.73 sq ESTIMATED GFR IS NOT glhe=2601) m ACCURATE CREATININE CLEARANCE IN PREDICTING GLOMERULAR FILTRATION RATE. ESTIMATED GFR IS NOT APPLICABLE FOR DIALYSIS PATIENTS. CBC W/PLT COUNT & AUTO [id number] 04:53:00 Test Item Value Reference Range Comments WHITE BLOOD CELL COUNT (BEAKER) (test vmye=632) 3.4 K/ L 3.5-10.5 RED BLOOD CELL COUNT (BEAKER) (test sjru=909) 3.45 M/ L 4.63-6.08 HEMOGLOBIN (BEAKER) (test esfo=039) 11.8 GM/DL 13.7-17.5 HEMATOCRIT (BEAKER) (test etta=101) 34.4 % 40.1-51.0 MEAN CORPUSCULAR VOLUME (BEAKER) (test vgfh=332) 99.7 fL 79.0-92.2 MEAN CORPUSCULAR HEMOGLOBIN (BEAKER) (test 34.2 pg 25.7-32.2 zvqd=881) MEAN CORPUSCULAR HEMOGLOBIN CONC (BEAKER) (test 34.3 GM/DL 32.3-36.5 inbu=099) RED CELL DISTRIBUTION WIDTH (BEAKER) (test 12.2 % 11.6-14.4 wvqx=473) PLATELET COUNT (BEAKER) (test mruv=100) 175 K/CU MM 150-450 MEAN PLATELET VOLUME (BEAKER) (test aekj=853) 10.3 fL 9.4-12.4 NUCLEATED RED BLOOD CELLS (BEAKER) (test 0 /100 WBC 0-0 uhdq=339) NEUTROPHILS RELATIVE PERCENT (BEAKER) (test 55 % ckci=851) LYMPHOCYTES RELATIVE PERCENT (BEAKER) (test 30 % nlkn=286) MONOCYTES RELATIVE PERCENT (BEAKER) (test 11 % vxsf=771) EOSINOPHILS RELATIVE PERCENT (BEAKER) (test 3 % togf=715) BASOPHILS RELATIVE PERCENT (BEAKER) (test 1 % mrbl=137) NEUTROPHILS ABSOLUTE COUNT (BEAKER) (test 1.89 K/ L 1.78-5.38 kkxe=247) LYMPHOCYTES ABSOLUTE COUNT (BEAKER) (test 1.03 K/ L 1.32-3.57 rmve=833) MONOCYTES ABSOLUTE COUNT (BEAKER) (test 0.39 K/ L 0.30-0.82 hdpt=078) EOSINOPHILS ABSOLUTE COUNT (BEAKER) (test 0.09 K/ L 0.04-0.54 lzvd=417) BASOPHILS ABSOLUTE COUNT (BEAKER) (test 0.03 K/ L 0.01-0.08 nfyq=870) IMMATURE GRANULOCYTES-RELATIVE PERCENT (BEAKER) 0 % 0-1 (test hjbm=3528) LIPID [id number] 17:30:00 Test Item Value Reference Range Comments TRIGLYCERIDES (BEAKER) (test nehe=594) 90 mg/dL CHOLESTEROL (BEAKER) (test mety=909) 140 mg/dL HDL CHOLESTEROL (BEAKER) (test ynlk=605) 37 mg/dL LDL CHOLESTEROL CALCULATED (BEAKER) (test 85 mg/dL srgx=113) Triglyceride Reference Range: Low Risk <150 Borderline 150- 199 High Risk 200-499 Very High Risk >=500Cholesterol Reference Range: Low Risk <200 Borderline 200-239 High Risk > 240HDL Cholesterol Reference Range: Low Risk >=60 High Risk <40LDL Cholesterol Reference Range: Optimal <100 Near Optimal 100-129 Borderline 130-159 High 160-189 Very High >=190HEPATITIS C PCR, [id number] 14:57:00 Test Item Value Reference Range Comments HCV RESULT COMPONENT (BEAKER) HCV RNA not detected HCV RNA not detected (test pqwn=3368) This test uses a Real-Time Polymerase Chain Reaction (RT-PCR) methodology and was performed using [employer] Ampliprep/MARIANO TaqMan HCV test kit version 2.0 ( [employer]).Reportable range for this assay is 15 - 100,000, 000 IU per mL (1.18 - 8.00 Log IU/mL).RAD, ABDOMEN/KUB, 1 VIEW [id number] 14: 17:00Reason for exam:->abd distensionFINAL REPORT TECHNIQUE: Supine radiographs of the abdomen dated 10/29/2018. HISTORY: Abdominal distention. COMPARISON: None IMPRESSION:No air-filled, dilated loops of bowel to suggest obstruction. No free intraperitoneal air. No abnormal soft tissue mass or calcification. Signed:Nancy Ruby MDReport Verified Date/ Time: 10/29/2018 14:17:17 Reading Location: [facility] Radiology Reading Room [id number] 13:28:00 Test Item Value Reference Range Comments RPR SCREEN (BEAKER) (test dspm=066) Nonreactive Nonreactive [id number] 05:12:00 Test Item Value Reference Range Comments PHOSPHORUS (BEAKER) (test iynl=345) 2.5 mg/dL 2.3-4.7 COMPREHENSIVE METABOLIC [id number] 05:12:00 Test Item Value Reference Range Comments TOTAL PROTEIN (BEAKER) 6.9 gm/dL 6.0-8.3 (test xkle=791) ALBUMIN (BEAKER) (test 3.9 g/dL 3.5-5.0 ezho=5044) ALKALINE PHOSPHATASE 200 U/L 40-150 (BEAKER) (test atyq=339) BILIRUBIN TOTAL (BEAKER) 1.2 mg/dL 0.2-1.2 (test zure=323) SODIUM (BEAKER) (test 137 meq/L 136-145 njjo=700) POTASSIUM (BEAKER) (test 3.3 meq/L 3.5-5.1 vyoj=643) CHLORIDE (BEAKER) (test 97 meq/L 98-107 cyjx=238) CO2 (BEAKER) (test 27 meq/L 22-29 oqnp=516) BLOOD UREA NITROGEN 3 mg/dL 7-21 (BEAKER) (test ngka=295) CREATININE (BEAKER) (test 0.57 mg/dL 0.57-1.25 kicl=450) GLUCOSE RANDOM (BEAKER) 108 mg/dL 70-105 (test jhpv=449) CALCIUM (BEAKER) (test 9.4 mg/dL 8.4-10.2 oyvt=573) AST (SGOT) (BEAKER) (test 263 U/L 5-34 ahgu=566) ALT (SGPT) (BEAKER) (test 215 U/L 6-55 fbho=129) EGFR (BEAKER) (test 166 mL/min/1.73 sq ESTIMATED GFR IS NOT woqg=2161) m ACCURATE CREATININE CLEARANCE IN PREDICTING GLOMERULAR FILTRATION RATE. ESTIMATED GFR IS NOT APPLICABLE FOR DIALYSIS PATIENTS. PROTHROMBIN TIME/[id number] 04:53:00 Test Item Value Reference Range Comments PROTIME (BEAKER) (test qrtb=027) 16.0 seconds 11.7-14.7 INR (BEAKER) (test eucg=009) 1.3 <=5.9 RECOMMENDED COUMADIN/WARFARIN INR THERAPY RANGESSTANDARD DOSE: 2.0 - 3.0 Includes: PROPHYLAXIS forvenous thrombosis, systemic embolization; TREATMENT for venous thrombosis and/or pulmonary embolus.HIGH RISK: Target INR is 2.5-3.5 for patients with mechanical heart valves.URINALYSIS W/ REFLEX URINE [id number] 18:43:00 Test Item Value Reference Range Comments COLOR (BEAKER) (test bmkn=445) Yellow CLARITY (BEAKER) (test ymur=181) Clear SPECIFIC GRAVITY UA (BEAKER) (test tloz=544) 1.007 1.001-1.035 PH UA (BEAKER) (test gtsk=828) 7.5 5.0-8.0 PROTEIN UA (BEAKER) (test hxhw=359) 20 mg/dL Negative GLUCOSE UA (BEAKER) (test sjpj=669) Negative Negative KETONES UA (BEAKER) (test oelq=162) 20 mg/dL Negative BILIRUBIN UA (BEAKER) (test iogg=274) Negative Negative BLOOD UA (BEAKER) (test vejy=353) Trace Negative NITRITE UA (BEAKER) (test naij=687) Negative Negative LEUKOCYTE ESTERASE UA (BEAKER) (test cott=384) Negative Negative UROBILINOGEN UA (BEAKER) (test qbfj=109) 2.0 mg/dL 0.2-1.0 RBC UA (BEAKER) (test dozg=364) 3 /HPF WBC UA (BEAKER) (test tfcc=061) < /HPF MUCUS (BEAKER) (test fubd=0720) Rare SOURCE(BEAKER) (test gbca=9596) VITAMIN B12 AND [id number] 15:08:00 Test Item Value Reference Range Comments VITAMIN B12 (BEAKER) (test xlzq=261) 1678 pg/mL 213-816 FOLATE (BEAKER) (test rykv=978) 19.4 ng/mL >=7.0 [id number] 14:48:00 Test Item Value Reference Range Comments FERRITIN (BEAKER) (test ofwd=705) 1698 ng/mL 5-275 IRON, TIBC, % SAT. (WITHOUT FERRITIN)2018-10-28 13:26:00 Test Item Value Reference Range Comments IRON (BEAKER) (test vsjw=293) 44.0 ug/dL 40.0-160.0 TOTAL IRON BINDING CAPACITY (BEAKER) (test 186 ug/dL 250-450 rsos=078) IRON % SATURATION (2) (BEAKER) (test nfik=1256) 24 % 20-55 HEPATITIS B SURFACE [id number] 13:26:00 Test Item Value Reference Range Comments HEPATITIS B SURFACE ANTIGEN (2) (BEAKER) (test Nonreactive Nonreactive bgnc=7587) HEPATITIS C [id number] 13:26:00 Test Item Value Reference Range Comments HEPATITIS C ANTIBODY (BEAKER) (test hlrd=723) Nonreactive Nonreactive HIV-1 ANTIGEN WITH HIV-1/2 [id number] 13:26:00 Test Item Value Reference Range Comments HIV-1 ANTIGEN WITH HIV 1\T\2 ANTIBODY (2) Nonreactive Nonreactive (BEAKER) (test nuyg=5841) HEPATITIS B SURFACE [id number] 13:19:00 Test Item Value Reference Range Comments HEPATITIS B SURFACE ANTIBODY (BEAKER) (test 34.5 mIU/mL <8.0 wfgf=253) HEPATITIS A ANTIBODY, [id number] 13:19:00 Test Item Value Reference Range Comments HEPATITIS A IGM ANTIBODY (BEAKER) (test Nonreactive Nonreactive ygvd=176) HEPATITIS B CORE ANTIBODY, [id number] 13:19:00 Test Item Value Reference Range Comments HEPATITIS B CORE TOTAL ANTIBODY (BEAKER) (test Nonreactive Nonreactive aayh=090) HEPATITIS A ANTIBODY, [id number] 13:19:00 Test Item Value Reference Range Comments HEPATITIS A IGG ANTIBODY (BEAKER) (test Nonreactive Nonreactive dhyx=0217) PROTHROMBIN [id number] 13:00:00 Test Item Value Reference Range Comments PROTIME (BEAKER) (test qrkc=935) 15.5 seconds 11.7-14.7 INR (BEAKER) (test vngp=487) 1.2 <=5.9 RECOMMENDED COUMADIN/WARFARIN INR THERAPY RANGESSTANDARD DOSE: 2.0 - 3.0 Includes: PROPHYLAXIS forvenous thrombosis, systemic embolization; TREATMENT for venous thrombosis and/or pulmonary embolus.HIGH RISK: Target INR is 2.5-3.5 for patients with mechanical heart valves.[id number] 03:31:00 Test Item Value Reference Range Comments PHOSPHORUS (BEAKER) (test ghfl=195) 3.5 mg/dL 2.3-4.7 [id number] 03:31:00 Test Item Value Reference Range Comments MAGNESIUM (BEAKER) (test kxoz=421) 1.5 mg/dL 1.6-2.6 COMPREHENSIVE METABOLIC [id number] 03:31:00 Test Item Value Reference Range Comments TOTAL PROTEIN (BEAKER) 6.5 gm/dL 6.0-8.3 (test utud=825) ALBUMIN (BEAKER) (test 3.7 g/dL 3.5-5.0 tkqw=0547) ALKALINE PHOSPHATASE 200 U/L 40-150 (BEAKER) (test jztv=164) BILIRUBIN TOTAL (BEAKER) 0.8 mg/dL 0.2-1.2 (test cnpj=802) SODIUM (BEAKER) (test 142 meq/L 136-145 qceq=358) POTASSIUM (BEAKER) (test 3.1 meq/L 3.5-5.1 ufgw=218) CHLORIDE (BEAKER) (test 103 meq/L 98-107 fibh=343) CO2 (BEAKER) (test 24 meq/L 22-29 kclp=400) BLOOD UREA NITROGEN 4 mg/dL 7-21 (BEAKER) (test wbtf=663) CREATININE (BEAKER) (test 0.55 mg/dL 0.57-1.25 wiho=270) GLUCOSE RANDOM (BEAKER) 100 mg/dL 70-105 (test bzkd=030) CALCIUM (BEAKER) (test 8.5 mg/dL 8.4-10.2 efkh=203) AST (SGOT) (BEAKER) (test 318 U/L 5-34 bvww=334) ALT (SGPT) (BEAKER) (test 244 U/L 6-55 jcqt=299) EGFR (BEAKER) (test 173 mL/min/1.73 sq ESTIMATED GFR IS NOT gmzg=1176) m ACCURATE CREATININE CLEARANCE IN PREDICTING GLOMERULAR FILTRATION RATE. ESTIMATED GFR IS NOT APPLICABLE FOR DIALYSIS PATIENTS. CBC W/PLT COUNT & AUTO [id number] 03:03:00 Test Item Value Reference Range Comments WHITE BLOOD CELL COUNT (BEAKER) (test kyvi=200) 4.2 K/ L 3.5-10.5 RED BLOOD CELL COUNT (BEAKER) (test ulbn=764) 3.61 M/ L 4.63-6.08 HEMOGLOBIN (BEAKER) (test uojs=629) 12.3 GM/DL 13.7-17.5 HEMATOCRIT (BEAKER) (test gzof=095) 35.9 % 40.1-51.0 MEAN CORPUSCULAR VOLUME (BEAKER) (test xowd=185) 99.4 fL 79.0-92.2 MEAN CORPUSCULAR HEMOGLOBIN (BEAKER) (test 34.1 pg 25.7-32.2 dceg=104) MEAN CORPUSCULAR HEMOGLOBIN CONC (BEAKER) (test 34.3 GM/DL 32.3-36.5 oqwp=117) RED CELL DISTRIBUTION WIDTH (BEAKER) (test 12.3 % 11.6-14.4 hknf=861) PLATELET COUNT (BEAKER) (test flzv=475) 122 K/CU MM 150-450 MEAN PLATELET VOLUME (BEAKER) (test iscf=750) 9.8 fL 9.4-12.4 NUCLEATED RED BLOOD CELLS (BEAKER) (test 0 /100 WBC 0-0 hfkx=425) NEUTROPHILS RELATIVE PERCENT (BEAKER) (test 70 % prgr=899) LYMPHOCYTES RELATIVE PERCENT (BEAKER) (test 17 % nkge=881) MONOCYTES RELATIVE PERCENT (BEAKER) (test 11 % nchd=157) EOSINOPHILS RELATIVE PERCENT (BEAKER) (test 1 % teum=752) BASOPHILS RELATIVE PERCENT (BEAKER) (test 1 % stph=694) NEUTROPHILS ABSOLUTE COUNT (BEAKER) (test 2.94 K/ L 1.78-5.38 jdts=852) LYMPHOCYTES ABSOLUTE COUNT (BEAKER) (test 0.73 K/ L 1.32-3.57 xvwh=502) MONOCYTES ABSOLUTE COUNT (BEAKER) (test 0.45 K/ L 0.30-0.82 glnu=518) EOSINOPHILS ABSOLUTE COUNT (BEAKER) (test 0.04 K/ L 0.04-0.54 xitk=134) BASOPHILS ABSOLUTE COUNT (BEAKER) (test 0.02 K/ L 0.01-0.08 zqhn=058) IMMATURE GRANULOCYTES-RELATIVE PERCENT (BEAKER) 1 % 0-1 (test gmhs=2986) POCT-GLUCOSE [id number] 12:15:00 Test Item Value Reference Range Comments POC-GLUCOSE METER (BEAKER) 99 mg/dL 70-110 TESTED AT [facility] [address] [facility] (test uyjb=8691) [facility] [address] [id number] 06:15:00 Test Item Value Reference Range Comments MAGNESIUM (BEAKER) (test crnx=238) 1.8 mg/dL 1.6-2.6 COMPREHENSIVE METABOLIC [id number] 06:15:00 Test Item Value Reference Range Comments TOTAL PROTEIN (BEAKER) 6.6 gm/dL 6.0-8.3 (test afrm=043) ALBUMIN (BEAKER) (test 3.6 g/dL 3.5-5.0 mnvx=2435) ALKALINE PHOSPHATASE 149 U/L 40-150 (BEAKER) (test mxgt=281) BILIRUBIN TOTAL (BEAKER) 0.8 mg/dL 0.2-1.2 (test byzb=535) SODIUM (BEAKER) (test 135 meq/L 136-145 ctzf=077) POTASSIUM (BEAKER) (test 3.6 meq/L 3.5-5.1 nchv=974) CHLORIDE (BEAKER) (test 98 meq/L 98-107 rydm=554) CO2 (BEAKER) (test 26 meq/L 22-29 afni=880) BLOOD UREA NITROGEN 8 mg/dL 7-21 (BEAKER) (test xflm=289) CREATININE (BEAKER) (test 0.57 mg/dL 0.57-1.25 nnla=855) GLUCOSE RANDOM (BEAKER) 100 mg/dL 70-105 (test kglp=601) CALCIUM (BEAKER) (test 9.5 mg/dL 8.4-10.2 cbqi=292) AST (SGOT) (BEAKER) (test 155 U/L 5-34 emog=973) ALT (SGPT) (BEAKER) (test 151 U/L 6-55 wsqu=890) EGFR (BEAKER) (test 166 mL/min/1.73 sq ESTIMATED GFR IS NOT dotz=9152) m ACCURATE CREATININE CLEARANCE IN PREDICTING GLOMERULAR FILTRATION RATE. ESTIMATED GFR IS NOT APPLICABLE FOR DIALYSIS PATIENTS. CBC W/PLT COUNT & AUTO [id number] 05:30:00 Test Item Value Reference Range Comments WHITE BLOOD CELL COUNT (BEAKER) (test nudt=661) 5.1 K/ L 3.5-10.5 RED BLOOD CELL COUNT (BEAKER) (test ggar=127) 3.81 M/ L 4.63-6.08 HEMOGLOBIN (BEAKER) (test kowd=447) 13.1 GM/DL 13.7-17.5 HEMATOCRIT (BEAKER) (test dxxd=052) 37.6 % 40.1-51.0 MEAN CORPUSCULAR VOLUME (BEAKER) (test hwnu=623) 98.7 fL 79.0-92.2 MEAN CORPUSCULAR HEMOGLOBIN (BEAKER) (test 34.4 pg 25.7-32.2 mhna=159) MEAN CORPUSCULAR HEMOGLOBIN CONC (BEAKER) (test 34.8 GM/DL 32.3-36.5 cxoa=019) RED CELL DISTRIBUTION WIDTH (BEAKER) (test 11.5 % 11.6-14.4 szda=868) PLATELET COUNT (BEAKER) (test ghlo=105) 152 K/CU MM 150-450 MEAN PLATELET VOLUME (BEAKER) (test czqr=816) 10.2 fL 9.4-12.4 NUCLEATED RED BLOOD CELLS (BEAKER) (test 0 /100 WBC 0-0 trzb=236) NEUTROPHILS RELATIVE PERCENT (BEAKER) (test 71 % xkxy=228) LYMPHOCYTES RELATIVE PERCENT (BEAKER) (test 14 % qwqn=610) MONOCYTES RELATIVE PERCENT (BEAKER) (test 11 % ogfc=818) EOSINOPHILS RELATIVE PERCENT (BEAKER) (test 2 % tscu=909) BASOPHILS RELATIVE PERCENT (BEAKER) (test 1 % ixhe=792) NEUTROPHILS ABSOLUTE COUNT (BEAKER) (test 3.66 K/ L 1.78-5.38 sbse=829) LYMPHOCYTES ABSOLUTE COUNT (BEAKER) (test 0.71 K/ L 1.32-3.57 qhzl=008) MONOCYTES ABSOLUTE COUNT (BEAKER) (test 0.58 K/ L 0.30-0.82 mwxf=179) EOSINOPHILS ABSOLUTE COUNT (BEAKER) (test 0.10 K/ L 0.04-0.54 hpwf=074) BASOPHILS ABSOLUTE COUNT (BEAKER) (test 0.04 K/ L 0.01-0.08 fkeh=868) IMMATURE GRANULOCYTES-RELATIVE PERCENT (BEAKER) 1 % 0-1 (test qbjx=9322) POCT-GLUCOSE [id number] 11:54:00 Test Item Value Reference Range Comments POC-GLUCOSE METER (BEAKER) 83 mg/dL 70-110 TESTED AT [facility] [address] [facility] (test thna=7332) [facility] [address] [id number] 05:54:00 Test Item Value Reference Range Comments PHOSPHORUS (BEAKER) (test rdrd=294) 2.3 mg/dL 2.3-4.7 [id number] 05:54:00 Test Item Value Reference Range Comments MAGNESIUM (BEAKER) (test pimu=822) 2.0 mg/dL 1.6-2.6 COMPREHENSIVE METABOLIC [id number] 05:54:00 Test Item Value Reference Range Comments TOTAL PROTEIN (BEAKER) 6.0 gm/dL 6.0-8.3 (test yzky=803) ALBUMIN (BEAKER) (test 3.2 g/dL 3.5-5.0 xaew=5538) ALKALINE PHOSPHATASE 134 U/L 40-150 (BEAKER) (test wmel=867) BILIRUBIN TOTAL (BEAKER) 1.1 mg/dL 0.2-1.2 (test xvmi=238) SODIUM (BEAKER) (test 134 meq/L 136-145 phls=827) POTASSIUM (BEAKER) (test 3.6 meq/L 3.5-5.1 pjrh=196) CHLORIDE (BEAKER) (test 100 meq/L 98-107 qzio=203) CO2 (BEAKER) (test 26 meq/L 22-29 hggb=652) BLOOD UREA NITROGEN 4 mg/dL 7-21 (BEAKER) (test xcbp=015) CREATININE (BEAKER) (test 0.54 mg/dL 0.57-1.25 rjaz=849) GLUCOSE RANDOM (BEAKER) 141 mg/dL 70-105 (test xopp=566) CALCIUM (BEAKER) (test 8.8 mg/dL 8.4-10.2 ytav=475) AST (SGOT) (BEAKER) (test 183 U/L 5-34 uxfs=798) ALT (SGPT) (BEAKER) (test 149 U/L 6-55 ulwg=467) EGFR (BEAKER) (test 176 mL/min/1.73 sq ESTIMATED GFR IS NOT cxjv=5220) m ACCURATE CREATININE CLEARANCE IN PREDICTING GLOMERULAR FILTRATION RATE. ESTIMATED GFR IS NOT APPLICABLE FOR DIALYSIS PATIENTS. LACTIC ACID, [id number] 05:35:00 Test Item Value Reference Range Comments LACTATE BLOOD VENOUS (2) (BEAKER) (test 1.0 mmol/L 0.5-2.2 nohs=4244) CBC W/PLT COUNT & AUTO [id number] 05:23:00 Test Item Value Reference Range Comments WHITE BLOOD CELL COUNT (BEAKER) (test otxo=208) 5.0 K/ L 3.5-10.5 RED BLOOD CELL COUNT (BEAKER) (test iwlt=124) 3.88 M/ L 4.63-6.08 HEMOGLOBIN (BEAKER) (test umvi=564) 13.0 GM/DL 13.7-17.5 HEMATOCRIT (BEAKER) (test pqex=492) 38.5 % 40.1-51.0 MEAN CORPUSCULAR VOLUME (BEAKER) (test pexn=015) 99.2 fL 79.0-92.2 MEAN CORPUSCULAR HEMOGLOBIN (BEAKER) (test 33.5 pg 25.7-32.2 adck=175) MEAN CORPUSCULAR HEMOGLOBIN CONC (BEAKER) (test 33.8 GM/DL 32.3-36.5 xbvq=985) RED CELL DISTRIBUTION WIDTH (BEAKER) (test 11.6 % 11.6-14.4 suyw=286) PLATELET COUNT (BEAKER) (test tsjc=748) 113 K/CU MM 150-450 MEAN PLATELET VOLUME (BEAKER) (test vkiy=208) 10.7 fL 9.4-12.4 NUCLEATED RED BLOOD CELLS (BEAKER) (test 0 /100 WBC 0-0 aiqz=481) NEUTROPHILS RELATIVE PERCENT (BEAKER) (test 72 % dauf=195) LYMPHOCYTES RELATIVE PERCENT (BEAKER) (test 15 % ogqw=034) MONOCYTES RELATIVE PERCENT (BEAKER) (test 10 % iupo=449) EOSINOPHILS RELATIVE PERCENT (BEAKER) (test 2 % ufls=114) BASOPHILS RELATIVE PERCENT (BEAKER) (test 1 % pdgr=289) NEUTROPHILS ABSOLUTE COUNT (BEAKER) (test 3.56 K/ L 1.78-5.38 emak=517) LYMPHOCYTES ABSOLUTE COUNT (BEAKER) (test 0.76 K/ L 1.32-3.57 mwum=243) MONOCYTES ABSOLUTE COUNT (BEAKER) (test 0.49 K/ L 0.30-0.82 qpxd=086) EOSINOPHILS ABSOLUTE COUNT (BEAKER) (test 0.10 K/ L 0.04-0.54 ustt=761) BASOPHILS ABSOLUTE COUNT (BEAKER) (test 0.04 K/ L 0.01-0.08 wtqw=762) IMMATURE GRANULOCYTES-RELATIVE PERCENT (BEAKER) 1 % 0-1 (test ahcf=3498) POCT-GLUCOSE [id number] 18:44:00 Test Item Value Reference Range Comments POC-GLUCOSE METER (BEAKER) 100 mg/dL 70-110 TESTED AT [facility] [address] (test rpea=2556) [facility] [address] [id number] 17:58:00 Test Item Value Reference Range Comments PHOSPHORUS (BEAKER) (test npdc=318) 2.3 mg/dL 2.3-4.7 [id number] 17:58:00 Test Item Value Reference Range Comments MAGNESIUM (BEAKER) (test osdy=363) 1.8 mg/dL 1.6-2.6 BASIC METABOLIC [id number] 17:58:00 Test Item Value Reference Range Comments SODIUM (BEAKER) (test 137 meq/L 136-145 umdi=212) POTASSIUM (BEAKER) (test 3.6 meq/L 3.5-5.1 xlmr=462) CHLORIDE (BEAKER) (test 102 meq/L 98-107 qdls=460) CO2 (BEAKER) (test 26 meq/L 22-29 icdb=085) BLOOD UREA NITROGEN 4 mg/dL 7-21 (BEAKER) (test wvgj=265) CREATININE (BEAKER) (test 0.54 mg/dL 0.57-1.25 fugl=102) GLUCOSE RANDOM (BEAKER) 123 mg/dL 70-105 (test fdpw=067) CALCIUM (BEAKER) (test 8.7 mg/dL 8.4-10.2 bxvu=618) EGFR (BEAKER) (test 177 mL/min/1.73 sq m ESTIMATED GFR IS NOT regt=2711) ACCURATE CREATININE CLEARANCE IN PREDICTING GLOMERULAR FILTRATION RATE. ESTIMATED GFR IS NOT APPLICABLE FOR DIALYSIS PATIENTS. [id number] 16:55:00 Test Item Value Reference Range Comments MAGNESIUM (BEAKER) (test 1.6 mg/dL 1.6-2.6 Specimen slightly hemolyzed donh=727) [id number] 16:55:00 Test Item Value Reference Range Comments PHOSPHORUS (BEAKER) (test 2.3 mg/dL 2.3-4.7 Specimen slightly hemolyzed jbkz=048) BASIC METABOLIC [id number] 16:55:00 Test Item Value Reference Range Comments SODIUM (BEAKER) (test 138 meq/L 136-145 nmzt=177) POTASSIUM (BEAKER) (test 3.7 meq/L 3.5-5.1 Specimen slightly prez=428) hemolyzed CHLORIDE (BEAKER) (test 105 meq/L 98-107 ybiz=759) CO2 (BEAKER) (test 23 meq/L 22-29 hote=785) BLOOD UREA NITROGEN 4 mg/dL 7-21 (BEAKER) (test gkky=487) CREATININE (BEAKER) (test 0.51 mg/dL 0.57-1.25 Specimen slightly iefb=021) hemolyzed GLUCOSE RANDOM (BEAKER) 99 mg/dL 70-105 (test hqtb=285) CALCIUM (BEAKER) (test 8.0 mg/dL 8.4-10.2 fawv=109) EGFR (BEAKER) (test 190 mL/min/1.73 sq m ESTIMATED GFR IS NOT vpmd=8726) ACCURATE CREATININE CLEARANCE IN PREDICTING GLOMERULAR FILTRATION RATE. ESTIMATED GFR IS NOT APPLICABLE FOR DIALYSIS PATIENTS. POCT-GLUCOSE [id number] 12:41:00 Test Item Value Reference Range Comments POC-GLUCOSE METER (BEAKER) 100 mg/dL 70-110 TESTED AT [facility] [address] [facility] (test mrfx=4636) [facility] [address] POCT-GLUCOSE [id number] 08:07:00 Test Item Value Reference Range Comments POC-GLUCOSE METER (BEAKER) 99 mg/dL 70-110 TESTED AT [facility] [address] [facility] (test wcqy=8358) [facility] [address] U/S, ABDOMINAL, [id number] 08:05:00Abdomen limited area? Add comment if clarification [...] secondary to portal hypertension. Signed: Juan Ramos MDReport Verified Date /Time: 09/30/2018 08:05:48 Reading Location: [facility] [id number] Ultrasound Reading Room [id number] 07:23:00 Test Item Value Reference Range Comments PHOSPHORUS (BEAKER) (test kggw=387) 1.2 mg/dL 2.3-4.7 [id number] 07:11:00 Test Item Value Reference Range Comments MAGNESIUM (BEAKER) (test jgca=026) 2.3 mg/dL 1.6-2.6 COMPREHENSIVE METABOLIC [id number] 07:11:00 Test Item Value Reference Range Comments TOTAL PROTEIN (BEAKER) 5.8 gm/dL 6.0-8.3 (test runw=274) ALBUMIN (BEAKER) (test 3.1 g/dL 3.5-5.0 kytn=5082) ALKALINE PHOSPHATASE 141 U/L 40-150 (BEAKER) (test pcvf=458) BILIRUBIN TOTAL (BEAKER) 1.1 mg/dL 0.2-1.2 (test uesr=446) SODIUM (BEAKER) (test 135 meq/L 136-145 fuyo=150) POTASSIUM (BEAKER) (test 3.7 meq/L 3.5-5.1 vpnd=915) CHLORIDE (BEAKER) (test 104 meq/L 98-107 tvac=744) CO2 (BEAKER) (test 24 meq/L 22-29 yivp=404) BLOOD UREA NITROGEN 5 mg/dL 7-21 (BEAKER) (test ekqz=579) CREATININE (BEAKER) (test 0.39 mg/dL 0.57-1.25 jdeu=576) GLUCOSE RANDOM (BEAKER) 114 mg/dL 70-105 (test baqd=039) CALCIUM (BEAKER) (test 8.3 mg/dL 8.4-10.2 ofvv=347) AST (SGOT) (BEAKER) (test 354 U/L 5-34 mcmw=249) ALT (SGPT) (BEAKER) (test 188 U/L 6-55 xijs=731) EGFR (BEAKER) (test 258 mL/min/1.73 sq ESTIMATED GFR IS NOT weeh=1702) m ACCURATE CREATININE CLEARANCE IN PREDICTING GLOMERULAR FILTRATION RATE. ESTIMATED GFR IS NOT APPLICABLE FOR DIALYSIS PATIENTS. LACTIC ACID, [id number] 04:07:00 Test Item Value Reference Range Comments LACTATE BLOOD VENOUS (2) 0.8 mmol/L 0.5-2.2 Specimen slightly hemolyzed (BEAKER) (test adoi=3915) CBC W/PLT COUNT & AUTO [id number] 04:00:00 Test Item Value Reference Range Comments WHITE BLOOD CELL COUNT (BEAKER) (test kjni=394) 6.1 K/ L 3.5-10.5 RED BLOOD CELL COUNT (BEAKER) (test lelk=974) 3.87 M/ L 4.63-6.08 HEMOGLOBIN (BEAKER) (test nfzn=466) 13.3 GM/DL 13.7-17.5 HEMATOCRIT (BEAKER) (test rgrb=232) 39.1 % 40.1-51.0 MEAN CORPUSCULAR VOLUME (BEAKER) (test ayqh=172) 101.0 fL 79.0-92.2 MEAN CORPUSCULAR HEMOGLOBIN (BEAKER) (test 34.4 pg 25.7-32.2 hzrt=107) MEAN CORPUSCULAR HEMOGLOBIN CONC (BEAKER) (test 34.0 GM/DL 32.3-36.5 mcjs=190) RED CELL DISTRIBUTION WIDTH (BEAKER) (test 12.1 % 11.6-14.4 dgkf=864) PLATELET COUNT (BEAKER) (test mbdz=228) 105 K/CU MM 150-450 MEAN PLATELET VOLUME (BEAKER) (test ince=803) 10.4 fL 9.4-12.4 NUCLEATED RED BLOOD CELLS (BEAKER) (test 0 /100 WBC 0-0 gzmy=921) NEUTROPHILS RELATIVE PERCENT (BEAKER) (test 74 % ooaz=233) LYMPHOCYTES RELATIVE PERCENT (BEAKER) (test 14 % lhbo=331) MONOCYTES RELATIVE PERCENT (BEAKER) (test 10 % htph=307) EOSINOPHILS RELATIVE PERCENT (BEAKER) (test 1 % gnbx=906) BASOPHILS RELATIVE PERCENT (BEAKER) (test 1 % bzxv=191) NEUTROPHILS ABSOLUTE COUNT (BEAKER) (test 4.52 K/ L 1.78-5.38 ukaj=216) LYMPHOCYTES ABSOLUTE COUNT (BEAKER) (test 0.84 K/ L 1.32-3.57 jybs=679) MONOCYTES ABSOLUTE COUNT (BEAKER) (test 0.62 K/ L 0.30-0.82 pyyp=446) EOSINOPHILS ABSOLUTE COUNT (BEAKER) (test 0.06 K/ L 0.04-0.54 ilaf=791) BASOPHILS ABSOLUTE COUNT (BEAKER) (test 0.03 K/ L 0.01-0.08 sqyi=136) IMMATURE GRANULOCYTES-RELATIVE PERCENT (BEAKER) 0 % 0-1 (test vtsy=2653) [id number] 01:32:00 Test Item Value Reference Range Comments PROCALCITONIN (BEAKER) (test bnej=9334) 0.48 ng/mL <0.05 SEPSIS RISK (ng/mL)Low: 0.05-0.50Intermediate: 0.51-2.00High: & gt;=2.01BASIC METABOLIC [id number] 00:58:00 Test Item Value Reference Range Comments SODIUM (BEAKER) (test 135 meq/L 136-145 aqqj=066) POTASSIUM (BEAKER) (test 3.4 meq/L 3.5-5.1 svxa=176) CHLORIDE (BEAKER) (test 104 meq/L 98-107 xnmn=859) CO2 (BEAKER) (test 22 meq/L 22-29 lolz=889) BLOOD UREA NITROGEN 7 mg/dL 7-21 (BEAKER) (test uqux=688) CREATININE (BEAKER) (test 0.55 mg/dL 0.57-1.25 vzbs=497) GLUCOSE RANDOM (BEAKER) 113 mg/dL 70-105 (test ihzc=989) CALCIUM (BEAKER) (test 8.4 mg/dL 8.4-10.2 doox=891) EGFR (BEAKER) (test 174 mL/min/1.73 sq m ESTIMATED GFR IS NOT ikkv=1727) ACCURATE CREATININE CLEARANCE IN PREDICTING GLOMERULAR FILTRATION RATE. ESTIMATED GFR IS NOT APPLICABLE FOR DIALYSIS PATIENTS. [id number] 00:57:00 Test Item Value Reference Range Comments MAGNESIUM (BEAKER) (test cfdr=857) 1.5 mg/dL 1.6-2.6 LACTIC ACID, [id number] 00:37:00 Test Item Value Reference Range Comments LACTATE BLOOD VENOUS (2) 0.7 mmol/L 0.5-2.2 Specimen moderately hemolyzed (BEAKER) (test qvmu=1131) POCT-GLUCOSE [id number] 00:25:00 Test Item Value Reference Range Comments POC-GLUCOSE METER (BEAKER) 101 mg/dL 70-110 TESTED AT [address] (test bask=4480) [place] [address] POCT-GLUCOSE [id number] 18:32:00 Test Item Value Reference Range Comments POC-GLUCOSE METER (BEAKER) 76 mg/dL 70-110 TESTED AT [address] (test syao=6203) [facility] [address] [id number] 15:15:00 Test Item Value Reference Range Comments POTASSIUM (BEAKER) (test bypl=245) 3.4 meq/L 3.5-5.1 [id number] 15:15:00 Test Item Value Reference Range Comments MAGNESIUM (BEAKER) (test weec=695) 2.1 mg/dL 1.6-2.6 CT, [id number] 12:38:00FINAL REPORT CT abdomen with and without [...] Verified Date/Time: 09/29/2018 12:38:07 Reading Location : [facility] [id number] [facility] Consult Reading Room POCT-GLUCOSE [id number] 11:49:00 Test Item Value Reference Range Comments POC-GLUCOSE METER (BEAKER) 83 mg/dL 70-110 TESTED AT [facility] [address] [facility] (test zusu=5489) [facility] [address] [id number] 10:49:00 Test Item Value Reference Range Comments TRIGLYCERIDES (BEAKER) (test 71 mg/dL Specimen slightly hemolyzed seyh=589) TRIGLYCERIDE REFERENCE RANGELow Risk <150Borderline Risk 150-199High Risk 200-499Very High Risk>=[id number] 05:09:00 Test Item Value Reference Range Comments LIPASE (BEAKER) (test owkp=108) > U/L 8-78 [id number] 04:35:00 Test Item Value Reference Range Comments MAGNESIUM (BEAKER) (test 1.6 mg/dL 1.6-2.6 Specimen slightly hemolyzed rlin=350) [id number] 04:35:00 Test Item Value Reference Range Comments PHOSPHORUS (BEAKER) (test 3.2 mg/dL 2.3-4.7 Specimen slightly hemolyzed vuvp=561) COMPREHENSIVE METABOLIC [id number] 04:35:00 Test Item Value Reference Range Comments TOTAL PROTEIN (BEAKER) 6.8 gm/dL 6.0-8.3 Specimen slightly (test mrrp=207) hemolyzed ALBUMIN (BEAKER) (test 3.8 g/dL 3.5-5.0 Specimen slightly weiq=7716) hemolyzed ALKALINE PHOSPHATASE 130 U/L 40-150 (BEAKER) (test lumm=680) BILIRUBIN TOTAL (BEAKER) 1.7 mg/dL 0.2-1.2 Specimen slightly (test lvjv=466) hemolyzed SODIUM (BEAKER) (test 138 meq/L 136-145 ohsg=388) POTASSIUM (BEAKER) (test 3.7 meq/L 3.5-5.1 Specimen slightly jxxe=245) hemolyzed CHLORIDE (BEAKER) (test 103 meq/L 98-107 iodz=536) CO2 (BEAKER) (test 17 meq/L 22-29 wiqu=119) BLOOD UREA NITROGEN 9 mg/dL 7-21 (BEAKER) (test qzba=173) CREATININE (BEAKER) (test 0.65 mg/dL 0.57-1.25 Specimen slightly ktvc=909) hemolyzed GLUCOSE RANDOM (BEAKER) 103 mg/dL 70-105 (test qudk=722) CALCIUM (BEAKER) (test 8.7 mg/dL 8.4-10.2 lbom=139) AST (SGOT) (BEAKER) (test 151 U/L 5-34 Specimen slightly ngtn=493) hemolyzed ALT (SGPT) (BEAKER) (test 143 U/L 6-55 Specimen slightly zzdz=596) hemolyzed EGFR (BEAKER) (test 143 mL/min/1.73 sq ESTIMATED GFR IS NOT ksbp=2252) m ACCURATE CREATININE CLEARANCE IN PREDICTING GLOMERULAR FILTRATION RATE. ESTIMATED GFR IS NOT APPLICABLE FOR DIALYSIS PATIENTS. PROTHROMBIN [id number] 04:34:00 Test Item Value Reference Range Comments PROTIME (BEAKER) (test cudb=375) 14.6 seconds 11.7-14.7 INR (BEAKER) (test jxsz=750) 1.1 <=5.9 RECOMMENDED COUMADIN/WARFARIN INR THERAPY RANGESSTANDARD DOSE: 2.0 - 3.0 Includes: PROPHYLAXIS forvenous thrombosis, systemic embolization; TREATMENT for venous thrombosis and/or pulmonary embolus.HIGH RISK: Target INR is 2.5-3.5 for patients with mechanical heart valves.CBC W/PLT COUNT & AUTO [id number] 04:09:00 Test Item Value Reference Range Comments WHITE BLOOD CELL COUNT (BEAKER) (test qfvr=650) 6.2 K/ L 3.5-10.5 RED BLOOD CELL COUNT (BEAKER) (test wmbi=600) 4.33 M/ L 4.63-6.08 HEMOGLOBIN (BEAKER) (test taau=322) 15.0 GM/DL 13.7-17.5 HEMATOCRIT (BEAKER) (test bgxo=649) 43.2 % 40.1-51.0 MEAN CORPUSCULAR VOLUME (BEAKER) (test utnn=585) 99.8 fL 79.0-92.2 MEAN CORPUSCULAR HEMOGLOBIN (BEAKER) (test 34.6 pg 25.7-32.2 wscx=368) MEAN CORPUSCULAR HEMOGLOBIN CONC (BEAKER) (test 34.7 GM/DL 32.3-36.5 jzlj=297) RED CELL DISTRIBUTION WIDTH (BEAKER) (test 12.4 % 11.6-14.4 hvqx=055) PLATELET COUNT (BEAKER) (test vsgp=142) 160 K/CU MM 150-450 MEAN PLATELET VOLUME (BEAKER) (test acco=494) 10.4 fL 9.4-12.4 NUCLEATED RED BLOOD CELLS (BEAKER) (test 0 /100 WBC 0-0 abau=596) NEUTROPHILS RELATIVE PERCENT (BEAKER) (test 81 % jduu=551) LYMPHOCYTES RELATIVE PERCENT (BEAKER) (test 7 % jvzj=884) MONOCYTES RELATIVE PERCENT (BEAKER) (test 10 % hpmj=901) EOSINOPHILS RELATIVE PERCENT (BEAKER) (test 0 % koww=634) BASOPHILS RELATIVE PERCENT (BEAKER) (test 1 % umja=474) NEUTROPHILS ABSOLUTE COUNT (BEAKER) (test 5.01 K/ L 1.78-5.38 ehwj=199) LYMPHOCYTES ABSOLUTE COUNT (BEAKER) (test 0.44 K/ L 1.32-3.57 iuwf=360) MONOCYTES ABSOLUTE COUNT (BEAKER) (test 0.62 K/ L 0.30-0.82 fmwd=339) EOSINOPHILS ABSOLUTE COUNT (BEAKER) (test 0.01 K/ L 0.04-0.54 lfee=680) BASOPHILS ABSOLUTE COUNT (BEAKER) (test 0.03 K/ L 0.01-0.08 vqke=421) IMMATURE GRANULOCYTES-RELATIVE PERCENT (BEAKER) 1 % 0-1 (test dyfo=1231)
[2018-12-10] MEDS ORDERED: NA CHLORIDE 0.9% 0 ML ONE (10:33)
[2018-12-10] MEDS ORDERED: FAMOTIDINE 20 MG/2 ML VIAL IV ONE (10:34)
[2018-12-10 10:54] LABS: Protime INR 1.33
[2018-12-10 11:03] LABS: Absolute Lymphocytes (CBC) 0.7 K/uL (0.7-4.9); Absolute Monocytes 0.7 K/uL (0.1-1.3); Absolute Neutrophil 5.1 K/uL (1.8-8.0); Basophils % 0.1 % (0-1.3); Hematocrit 36.3 % (39.6-49.0); Lymphocytes % 10.5 % (15.3-44.8); MPV 10.1 fL (7.6-11.3); Monocytes % 11.3 % (3.3-12.3); RBC Red Blood Cell Count 3.65 M/uL (4.33-5.43)
[2018-12-10 11:15] LABS: Magnesium 1.6 mg/dL (1.8-2.4); NT PRO-BNP 1636 pg/mL (<125); Troponin (Emerg Dept Use Only) 0.08 ng/mL (0.0-0.045)
--- NOTE | 2018-12-10 11:18 | RAD REPORT ---
EXAM DESCRIPTION: RAD - Abdomen 1 View (KUB) - 12/10/2018 11:07 am CLINICAL HISTORY: ABD PAIN Pain COMPARISON: Abdomen Pelvis W Contrast dated 10/27/2018 FINDINGS: The bowel gas pattern is non-obstructive. No evidence of free air or pneumatosis. No suspi cious calcifications. No significant bony findings. IMPRESSION: Negative examination.
--- NOTE | 2018-12-10 11:18 | RAD REPORT ---
EXAM DESCRIPTION: RAD - Chest Single View - 12/10/2018 11:07 am CLINICAL HISTORY: CHEST PAIN Chest pain. COMPARISON: Chest Single View dated 10/27/2018; CHEST PA AND LAT 2 VIEW dated 01/08/2012; CHEST PA AND LAT 2 VIEW dated 02/24/2008; CHEST PA AND LAT 2 VIEW dated 01/02/2006 FINDINGS: Portable technique limits examination quality. The lungs are grossly clear. The heart is normal in size. No displaced fractures. IMPRESSION: No acute intrathoracic process suspected.
[2018-12-10 11:27] LABS: Albumin 3.7 g/dL (3.4-5.0); Bilirubin Direct 2.7 mg/dL (0-0.2); Bilirubin Total 4.3 mg/dL (0.2-1.0)
[2018-12-10 11:29] LABS: Potassium 2.6 mmol/L (3.5-5.1)
[2018-12-10] MEDS ORDERED: NA CHLORIDE 0.9% 1,000 ML ONE ×2 (11:33→12:47)
--- NOTE | 2018-12-10 11:44 | RAD REPORT ---
EXAM DESCRIPTION: CT - Stone Protocol - 12/10/2018 11:32 am CLINICAL HISTORY: Flank pain. ABD PAIN COMPARISON: Abdomen Pelvis W Contrast dated 10/27/2018 TECHNIQUE: Axial images were obtained without oral or IV contrast. Lack of contrast limits solid org an and vascular assessment. The emazi-fe-ifcv spans the entirety of the system partially obscuring uppermost abdomen and lung bases. Coronal reformatted images were obtained and reviewed. All CT scans are performed using dose optimization technique as appropriate and may include automated exposure control or mA/KV adjustment according to patient size. FINDINGS: There is a small amount of air seen in the anterior inferior aspect of the mediastinum as well as adjacent to the inferior vena cava. This suggests possibility of pneumomediastinum. Small pne umothorax may also be present medial right lung base. Dedicated CT chest imaging may be useful for fu rther assessment. Very advanced fatty liver pattern is seen. The spleen is normal in size. Ill-defined peripancreatic i nflammation is present compatible with acute pancreatitis. No pathologic lymphadenopathy in the abdom en or pelvis. Bilateral renal calculi without hydronephrosis throughout both caliceal systems. No bowel obstruction, free air, free fluid or abscess. Normal appendix noted. No significant bony abnormality. IMPRESSION: Moderate acute pancreatitis. Small amount of air is seen in the inferior mediastinum and a small medial right base pneumothorax is possible. CT chest followup may be of value. Bilateral nephrolithiasis without hydronephrosis. Advanced fatty liver.
--- NOTE | 2018-12-10 12:27 | ER ---
Nurse's Notes [facility] Name: Jonathan Gutierrez Age: 33 yrs Sex: Male : 1985 Arrival Date: 12/10/2018 Time: 09:58 Bed 3 Private MD: Diagnosis: Acute pancreatitis;Pneumothorax, unspecified-pneumomediastinum;Acute kidney failure;Hypokalemia;Abdominal tenderness;Vomiting Presentation: 12/10 09:59 Presenting complaint: EMS states: Pt c/o of dehydration, N/V, and abdominal pain, also ph reports auditory and visual hallucinations, hx of drug and alcohol use, pt denies using either in approx 3 days, also c/o slight chest pain, HR elevated at 135, sinus tach, pt given 2 zofran, 100 thiamine, and 400 mL NS [employer]. Transition of care: patient was not received from another setting of care. Onset of symptoms was December 10, 2018. Risk Assessment: Do you want to hurt yourself or someone else? Patient reports no desire to harm self or others. Initial Sepsis Screen: Does the patient meet any 2 criteria? No. Patient's initial sepsis screen is negative. Does the patient have a suspected source of infection? No. Patient's initial sepsis screen is negative. Care prior to arrival: Medication(s) given: Normal saline infusion, 400 mL zofran 2 mg thiamine. 09:59 Method Of Arrival: EMS: [facility] ph 09:59 Acuity: NEO 3 ph 10:31 Acuity: NEO 2 ph Historical: - Allergies: 13:28 Morphine; hallucinations; tw2 - Home Meds: 10:05 Folic Acid Oral [Active]; lisinopril Oral [Active]; Thiamine Oral [Active]; ph - PMHx: 10:05 Hypertension; ph - PSHx: 10:05 None; ph - Immunization history:: Adult Immunizations unknown. - Social history:: Patient uses alcohol, street drugs, Smoking status: Patient uses tobacco products, smokes one pack cigarettes per day. - Ebola Screening: : No symptoms or risks identified at this time. - Family history:: not pertinent. Screenin:06 Abuse screen: Denies threats or abuse. Denies injuries from another. Nutritional ph screening: No deficits noted. Tuberculosis screening: No symptoms or risk factors identified. Fall Risk None identified. Assessment: 10:07 General: Appears in no apparent distress. comfortable, slender, unkempt, Behavior is ph cooperative, restless, Denies fever, feeling ill. Pain: Complains of pain in umbilical area and chest. Neuro: Level of Consciousness is awake, alert, obeys commands, Oriented to person, place, time. Cardiovascular: Capillary refill < 3 seconds in bilateral fingers Patient's skin is warm and dry. GI: Abdomen is flat, non-distended, Bowel sounds present X 4 quads. Abd is soft X 4 quads Reports lower abdominal pain, upper abdominal pain, nausea, vomiting. Derm: Skin bruising and multiple scratches and abrasions noted to elisabet legs. Musculoskeletal: Circulation, motion, and sensation intact. Range of motion: intact in all extremities. 10:10 Reassessment: pt having auditory and visual hallucinations, pt denies SI/HI. tw2 11:09 Reassessment: Patient appears in no apparent distress at this time. Patient and/or tw2 family updated on plan of care and expected duration. Pain level reassessed. 11:58 Reassessment: Patient appears in no apparent distress at this time. Patient and/or tw2 family updated on plan of care and expected duration. Pain level reassessed. 13:00 Reassessment: Patient appears in no apparent distress at this time. Patient and/or tw2 family updated on plan of care and expected duration. Pain level reassessed. 14:15 Reassessment: Patient appears in no apparent distress at this time. Patient and/or tw2 family updated on plan of care and expected duration. Pain level reassessed. Psych: 10:12 Subjective: Delusions are denied, Hallucinations are auditory, visual, Having thoughts ph of pt denies suicidal/homicidal thoughts. Objective: Patient is cooperative, restless, Speech is normal, Affect is appropriate. Interventions: Patient placed in hospital gown. Vital Signs: 10:03 BP 129 / 89; Pulse 111; Resp 18; Temp 98.0; Pulse Ox 98% on R/A; Weight 75.75 kg; ph Height 5 ft. 11 in. (180.34 cm); Pain 7/10; 11:08 BP 135 / 83; Pulse 106; Resp 17; Pulse Ox 100% on R/A; tw2 11:49 BP 137 / 89; Pulse 103; Resp 20; Pulse Ox 99% on R/A; tw2 13:00 BP 133 / 91; Pulse 96; Resp 17; Pulse Ox 99% on R/A; tw2 14:10 Pulse 88; Resp 19; Pulse Ox 99% on R/A; tw2 10:03 Body Mass Index 23.29 (75.75 kg, 180.34 cm) ph ED Course: 09:58 Patient arrived in ED. ph 10:03 Triage completed. ph 10:03 Prateek Lacey MD is Attending Physician. beck 10:03 Wilton Amaral MD is Attending Physician. ma2 10:05 Arm band placed on Patient placed in an exam room, on a stretcher. ph 10:07 Patient has correct armband on for positive identification. Bed in low position. Call ph light in reach. Side rails up X 1. Pulse ox on. NIBP on. Warm blanket given. 10:22 Ramona Vanessa RN is Primary Nurse. tw2 10:27 EKG done, by nursing techn. reviewed by Prateek Lacey MD. sm3 11:08 XRAY Chest (1 view) In Process Unspecified. EDMS 11:08 Abdomen 1 View (KUB) XRAY In Process Unspecified. EDMS 11:[address] via wheelchair. sw 11:25 CT completed. Pt tolerated procedure poorly. Patient moved back from CT. sw 11:34 CT Stone Protocol In Process Unspecified. EDMS 12:06 Urine Drug Screen Sent. tw2 12:06 Urine Culture Sent. tw2 13:[address] via stretcher. sw 13:52 CT completed. Patient tolerated procedure well. Patient moved back from CT. sw 14:09 CT Chest Wo Con In Process Unspecified. EDMS 14:48 No provider procedures requiring assistance completed. Patient transferred, IV remains tw2 in place. Administered Medications: 10:50 Drug: Pepcid 20 mg Route: IVP; Site: left antecubital; tw2 11:48 Follow up: Response: No adverse reaction tw2 10:55 Drug: NS 0.9% 1000 ml Route: IV; Rate: 1 bolus; Site: left antecubital; tw2 14:00 Follow up: Response: No adverse reaction; IV Status: Completed infusion; IV Intake: tw2 1000ml 11:19 Drug: NS 0.9% 1000 ml Route: IV; Rate: 1 bolus; Site: left antecubital; tw2 12:30 Follow up: Response: No adverse reaction; IV Status: Completed infusion; IV Intake: tw2 1000ml 12:35 Drug: Potassium Effervescent Tablet 25 mEq Route: PO; tw2 12:54 Follow up: Response: No adverse reaction tw2 12:51 Not Given (Duplicate Order): NS 0.9% with KCl 20 mEq/L 1000 ml IV at 125 ml/hr [facility] 12:53 Drug: Potassium Chloride 20 mEq Route: IV; Rate: per protocol; Site: left antecubital; tw2 14:53 Follow up: Response: No adverse reaction; IV Status: Completed infusion tw2 12:58 Drug: Magnesium Sulfate 1 grams Route: IVPB; Infused Over: 1 hrs; Site: right tw2 antecubital; 12:58 Drug: Lactated Ringers Solution 1000 ml Route: IV; Rate: 150 ml/hr; Site: left tw2 antecubital; 14:53 Follow up: IV Status: Infusion continued upon transfer tw2 13:24 Drug: Nicoderm CQ 21 mg/24 hr 1 patches {Note: LEFT upper arm.} Route: Transdermal; tw2 Site: affected area; 13:25 Drug: Zosyn 3.375 grams Route: IVPB; Infused Over: 60 mins; Site: right antecubital; tw2 14:30 Follow up: Response: No adverse reaction; IV Status: Completed infusion tw2 Intake: 12:30 IV: 1000ml; Total: 1000ml. tw2 14:00 IV: 1000ml; Total: 2000ml. tw2 Output: 12:06 Urine: 250ml (Voided); Total: 250ml. tw2 Outcome: 12:26 ER care complete, transfer ordered by MD. solares 14:48 Transferred by ground EMS to [facility]. tw2 14:48 Condition: stable 14:48 Discharge instructions given to patient, Instructed on the need for transfer, Demonstrated understanding of instructions. 14:53 Patient left the ED. tw2 Signatures: Dispatcher [employer] EDPrateek King MD MD cha Hall, Patricia RN RN Arian, Ramona Andrew RN RN 2 Wilton Amaral MD MD [facility] [place] [facility] Corrections: (The following items were deleted from the chart) 13:28 10:05 Allergies: No Known Allergies; ph tw2
--- NOTE | 2018-12-10 12:28 | EDPHYS ---
Physician Documentation [facility] Name: Jonathan Gutierrez Age: 33 yrs Sex: Male : 1985 Arrival Date: 12/10/2018 Time: 09:58 Bed 3 Private MD: ED Physician Prateek Lacey HPI: 12/10 11:02 This 33 yrs old Male presents to ER via EMS with complaints of Abdominal Pain.beck 11:02 The patient presents with confusion, decreased mental status. Onset: The beck symptoms/episode began/occurred 2 day(s) ago. Possible causes: drug use. The patient presents with dizziness. Context: occurred at home. Modifying factors: The symptoms are alleviated by nothing, the symptoms are aggravated by nothing. Associated signs and symptoms: The patient has no apparent associated signs or symptoms. Severity of symptoms: At their worst the symptoms were moderate in the emergency department the symptoms are unchanged. Historical: - Allergies: 13:28 Morphine; hallucinations; tw2 - Home Meds: 10:05 Folic Acid Oral [Active]; lisinopril Oral [Active]; Thiamine Oral [Active]; ph - PMHx: 10:05 Hypertension; ph - PSHx: 10:05 None; ph - Immunization history:: Adult Immunizations unknown. - Social history:: Patient uses alcohol, street drugs, Smoking status: Patient uses tobacco products, smokes one pack cigarettes per day. - Ebola Screening: : No symptoms or risks identified at this time. - Family history:: not pertinent. ROS: 11:02 Constitutional: Negative for fever, chills, and weight loss, Eyes: Negative for injury, beck pain, redness, and discharge, ENT: Negative for injury, pain, and discharge, Neck: Negative for injury, pain, and swelling, Cardiovascular: Negative for chest pain, palpitations, and edema, Respiratory: Negative for shortness of breath, cough, wheezing, and pleuritic chest pain, Abdomen/GI: Negative for abdominal pain, nausea, vomiting, diarrhea, and constipation, Back: Negative for injury and pain, : Negative for injury, bleeding, discharge, and swelling, Skin: Negative for injury, rash, and discoloration, Neuro: Negative for headache, weakness, numbness, tingling, and seizure, Psych: Negative for depression, anxiety, suicide ideation, homicidal ideation, and hallucinations, Allergy/Immunology: Negative for hives, rash, and allergies, Endocrine: Negative for neck swelling, polydipsia, polyuria, polyphagia, and marked weight changes, Hematologic/Lymphatic: Negative for swollen nodes, abnormal bleeding, and unusual bruising. 11:02 MS/extremity: Negative for acute changes. Exam: 11:02 Constitutional: This is a well developed, well nourished patient who is awake, alert, beck and in no acute distress. Head/Face: Normocephalic, atraumatic. Eyes: Pupils equal round and reactive to light, extra-ocular motions intact. Lids and lashes normal. Conjunctiva and sclera are non-icteric and not injected. Cornea within normal limits. Periorbital areas with no swelling, redness, or edema. ENT: Nares patent. No nasal discharge, no septal abnormalities noted. Tympanic membranes are normal and external auditory canals are clear. Oropharynx with no redness, swelling, or masses, exudates, or evidence of obstruction, uvula midline. Mucous membranes moist. Neck: Trachea midline, no thyromegaly or masses palpated, and no cervical lymphadenopathy. Supple, full range of motion without nuchal rigidity, or vertebral point tenderness. No Meningismus. Chest/axilla: Normal chest wall appearance and motion. Nontender with no deformity. No lesions are appreciated. Cardiovascular: Regular rate and rhythm with a normal S1 and S2. No gallops, murmurs, or rubs. Normal PMI, no JVD. No pulse deficits. Respiratory: Lungs have equal breath sounds bilaterally, clear to auscultation and percussion. No rales, rhonchi or wheezes noted. No increased work of breathing, no retractions or nasal flaring. Abdomen/GI: Soft, non-tender, with normal bowel sounds. No distension or tympany. No guarding or rebound. No evidence of tenderness throughout. Back: No spinal tenderness. No costovertebral tenderness. Full range of motion. Male : Normal genitalia with no discharge or lesions. Skin: Warm, dry with normal turgor. Normal color with no rashes, no lesions, and no evidence of cellulitis. MS/ Extremity: Pulses equal, no cyanosis. Neurovascular intact. Full, normal range of motion. Psych: Awake, alert, with orientation to person, place and time. Behavior, mood, and affect are within normal limits. 11:02 Neuro: Orientation: is normal, appropriate for stated age, no acute changes, Mentation: is normal, appropriate for stated age, no acute changes, Memory: is normal, appropriate for stated age, no acute changes, Cranial nerves: grossly normal, is grossly normal based on the patient's age, no acute changes, Cerebellar function: is grossly normal, is grossly normal based on the patient's age, no acute changes, Motor: is normal, is grossly normal based on the patient's age, Sensation: is normal, Gait: not applicable Deep tendon reflexes are normal, seizure activity, is not displayed by the patient. Vital Signs: 10:03 BP 129 / 89; Pulse 111; Resp 18; Temp 98.0; Pulse Ox 98% on R/A; Weight 75.75 kg; ph Height 5 ft. 11 in. (180.34 cm); Pain 7/10; 11:08 BP 135 / 83; Pulse 106; Resp 17; Pulse Ox 100% on R/A; tw2 11:49 BP 137 / 89; Pulse 103; Resp 20; Pulse Ox 99% on R/A; tw2 13:00 BP 133 / 91; Pulse 96; Resp 17; Pulse Ox 99% on R/A; tw2 14:10 Pulse 88; Resp 19; Pulse Ox 99% on R/A; tw2 10:03 Body Mass Index 23.29 (75.75 kg, 180.34 cm) ph MDM: 10:04 Patient medically screened. [facility] 11:05 Data reviewed: vital signs, nurses notes, lab test result(s), EKG, radiologic studies, [facility] plain films. 12/10 10:04 Order name: Basic Metabolic Panel; Complete Time: 11:48 [facility] 12/10 10:04 Order name: CBC with Diff; Complete Time: 11:12 [facility] 12/10 10:04 Order name: Creatinine for Radiology; Complete Time: 11:12 [facility] 12/10 10:04 Order name: Hepatic Function; Complete Time: 11:48 [facility] 12/10 10:04 Order name: Lipase; Complete Time: 11:48 [facility] 12/10 10:04 Order name: Urine Culture [facility] 12/10 10:09 Order name: Magnesium; Complete Time: 11:48 [facility] 12/10 10:09 Order name: NT PRO-BNP; Complete Time: 11:48 [facility] 12/10 10:09 Order name: PT-INR; Complete Time: 11:12 [facility] 12/10 10:09 Order name: Troponin (emerg Dept Use Only); Complete Time: 11:48 [facility] 12/10 10:09 Order name: Acetaminophen; Complete Time: 11:48 [facility] 12/10 10:09 Order name: ETOH Level; Complete Time: 11:48 [facility] 12/10 10:09 Order name: Ptt, Activated; Complete Time: 11:12 [facility] 12/10 10:09 Order name: Salicylate; Complete Time: 11:48 [facility] 12/10 10:09 Order name: XRAY Chest (1 view); Complete Time: 11:48 [facility] 12/10 10:09 Order name: Urine Drug Screen; Complete Time: 12:45 [facility] 12/10 10:15 Order name: Abdomen 1 View (KUB) XRAY; Complete Time: 11:48 [facility] 12/10 11:15 Order name: CT Stone Protocol; Complete Time: 11:48 [facility] 12/10 12:21 Order name: Blood Culture Adult (2) [facility] 12/10 12:47 Order name: Urine Dipstick--Ancillary (enter results) 12/10 12:51 Order name: Chem 7 [facility] 12/10 13:41 Order name: CT Chest Wo Con [facility] 12/10 10:04 Order name: IV Saline Lock; Complete Time: 11:20 [facility] 12/10 10:04 Order name: Labs collected and sent; Complete Time: 11:20 [facility] 12/10 10:04 Order name: Urine Dipstick-Ancillary (obtain specimen); Complete Time: 12:06 [facility] 12/10 10:09 Order name: EKG; Complete Time: 10:10 [facility] 12/10 10:09 Order name: Cardiac monitoring; Complete Time: 10:22 [facility] 12/10 10:09 Order name: EKG - Nurse/Tech; Complete Time: 10:22 [facility] 12/10 10:09 Order name: O2 Per Protocol; Complete Time: 10:22 [facility] 12/10 10:09 Order name: O2 Sat Monitoring; Complete Time: 10:22 [facility] Administered Medications: 10:50 Drug: Pepcid 20 mg Route: IVP; Site: left antecubital; tw2 11:48 Follow up: Response: No adverse reaction tw2 10:55 Drug: NS 0.9% 1000 ml Route: IV; Rate: 1 bolus; Site: left antecubital; tw2 14:00 Follow up: Response: No adverse reaction; IV Status: Completed infusion; IV Intake: tw2 1000ml 11:19 Drug: NS 0.9% 1000 ml Route: IV; Rate: 1 bolus; Site: left antecubital; tw2 12:30 Follow up: Response: No adverse reaction; IV Status: Completed infusion; IV Intake: tw2 1000ml 12:35 Drug: Potassium Effervescent Tablet 25 mEq Route: PO; tw2 12:54 Follow up: Response: No adverse reaction tw2 12:51 Not Given (Duplicate Order): NS 0.9% with KCl 20 mEq/L 1000 ml IV at 125 ml/hr beck continuous 12:53 Drug: Potassium Chloride 20 mEq Route: IV; Rate: per protocol; Site: left antecubital; tw2 14:53 Follow up: Response: No adverse reaction; IV Status: Completed infusion tw2 12:58 Drug: Magnesium Sulfate 1 grams Route: IVPB; Infused Over: 1 hrs; Site: right tw2 antecubital; 12:58 Drug: Lactated Ringers Solution 1000 ml Route: IV; Rate: 150 ml/hr; Site: left tw2 antecubital; 14:53 Follow up: IV Status: Infusion continued upon transfer tw2 13:24 Drug: Nicoderm CQ 21 mg/24 hr 1 patches {Note: LEFT upper arm.} Route: Transdermal; tw2 Site: affected area; 13:25 Drug: Zosyn 3.375 grams Route: IVPB; Infused Over: 60 mins; Site: right antecubital; tw2 14:30 Follow up: Response: No adverse reaction; IV Status: Completed infusion tw2 Disposition: 12/10/18 12:26 Transfer ordered to [facility]. Diagnosis are Acute pancreatitis, Pneumothorax, unspecified - pneumomediastinum, Acute kidney failure, Hypokalemia, Abdominal tenderness, Vomiting. - Reason for transfer: Higher level of care. - Accepting physician is to medicine, [facility]. - Condition is Fair. - Problem is new. - Symptoms have improved. Signatures: Dispatcher [employer] EDPrateek King MD MD cha Hall, Patricia, RN RN ph Wise, Tara, RN RN tw2 Corrections: (The following items were deleted from the chart) 13:28 10:05 Allergies: No Known Allergies; ph tw2 14:53 12:26 12/10/2018 12:26 Transfer ordered to [facility]. Diagnosis is tw2 Acute pancreatitis; Pneumothorax, unspecified - pneumomediastinum; Acute kidney failure; Hypokalemia; Abdominal tenderness; Vomiting. Reason for transfer: Higher level of care. Accepting physician is to [facility], [facility]. Condition is Fair. Problem is new. Symptoms have improved. beck
[2018-12-10 12:37] LABS: Barbiturates NEGATIVE (NEGATIVE); Benzodiazepines NEGATIVE (NEGATIVE); Cocaine NEGATIVE (NEGATIVE); METHAMPHETAM POSITIVE (NEGATIVE); Methadone NEGATIVE (NEGATIVE); Opiates NEGATIVE (NEGATIVE); Phencyclidine NEGATIVE (NEGATIVE); THC Cannibis NEGATIVE (NEGATIVE)
[2018-12-10] MEDS ORDERED: NS KCL 20MEQ 1,000 ML IV ONE (12:47)
[2018-12-10] MEDS ORDERED: PIPER/TAZO/NS 3.375gm 3.375 GM/100 ML BAG ONE (12:47)
[2018-12-10] MEDS ORDERED: KCL 20 MEQ/100 mL IVPB 20 MEQ/100 ML BAG IV ONE (12:47)
[2018-12-10] MEDS ORDERED: POTASSIUM 25 MEQ EFFERV TAB ONE (12:47)
[2018-12-10 12:52] LABS: Urine Blood 3+ (NEG); Urine Glucose NEGATIVE (NEG); Urine Protein 3+ (NEG); Urine Specific Gravity 1.025 (1.005-1.030)
[2018-12-10] MEDS ORDERED: MAGNESIUM SULFATE 1 gm IVPB 1 GM/100 ML BAG IV ONE (13:12)
[2018-12-10] MEDS ORDERED: Ringers Lactate 1,000 ML IV ONE (13:12)
[2018-12-10] MEDS ORDERED: NICOTINE 21 MG/PAT TD ONE (13:29)
[2018-12-10 13:49] LABS: Potassium 2.6 mmol/L (3.5-5.1)
--- NOTE | 2018-12-10 14:11 | RAD REPORT ---
EXAM DESCRIPTION: CT - Thorax Wo Con - 12/10/2018 1:54 pm CLINICAL HISTORY: Chest pain COMPARISON: Chest films same date, CT chest 2007 TECHNIQUE: Axial 5 mm thick images of the chest were obtained without IV contrast. All CT scans are performed using dose optimization technique as appropriate and may include automated exposure control or mA/KV adjustment according to patient size. FINDINGS: No infiltrate or suspicious mass in the lung parenchyma. In the medial posterior lower rig ht lung field a 4-5 mm nodule is present unchanged from 2008. No pleural thickening or pleural effusi on. No pneumothorax. No pericardial thickening or effusion. No abnormal mediastinal or hilar mass lesion. No gross aortic or pulmonary artery finding suspected. Assessment is limited in the absence of IV contrast. No endob ronchial lesion. Patient has a small amount of pneumomediastinum. This extends superiorly into the ri ght side base of the neck. No esophagus or bronchial tree abnormality identifiable. No chest wall mass or abnormal axillary lymphadenopathy. Imaging extending into the upper abdomen shows a very pronounced fatty infiltration pattern in the li jake. IMPRESSION: Pneumomediastinum is present with a small amount of air present. Air extends superiorly into the right side base of the neck. No esophageal or bronchial tree abnormality seen. Etiology for the pneumomediastinum is uncertain. No pneumothorax or acute lung parenchymal process. Limited upper abdomen imaging shows a very pronounced fatty infiltration pattern of the liver.
[2018-12-10 19:40] VITALS: TEMP 98
[2018-12-10 19:43] VITALS: O2SAT 99
[2018-12-10 19:44] VITALS: BP 133/91
--- NOTE | 2018-12-11 07:32 | EKG ---
Test Date: 2018-12-10 Test Time: 10:27:02 Hand Bunch Maker: MARYAN MEASUREMENT RESULTS: Intervals: Rate: 111 TX: 134 QRSD: 100 QT: 364 QTc: 495 Morning Sun: P: 69 TX: 134 QRS: 90 T: 30 INTERPRETIVE STATEMENTS: Sinus tachycardia Right atrial enlargement Rightward axis Borderline ECG Compared to ECG 10/27/2018 18:25:53 Atrial abnormality now present Right-axis deviation now present T-wave abnormality no longer present Electronically Signed On 12-11-18 07:31:37 CDT by Siddharth De Leon
== END 2018-12-10 14:53 | disposition short-term general hospital (02) ==
LOC: ER 09:57
DX: K85.90 Acute pancreatitis without necrosis or infection, unspecified (principal); J93.9 Pneumothorax, unspecified; J98.2 Interstitial emphysema; N17.9 Acute kidney failure, unspecified; E87.6 Hypokalemia; R11.10 Vomiting, unspecified; F17.210 Nicotine dependence, cigarettes, uncomplicated; Z88.5 Allergy status to narcotic agent
CPT/HCPCS: 36415; 71045; 71250; 74018; 74176; 76377; 80048; 80076; 80307; 80320; 80329; 81003; 83690; 83735; 83880; 84484; 85025; 85610; 85730; 87040; 87086; 87088; 93005; 99285; J2543; J3475; J7030

== ENCOUNTER 2019-02-12 05:05 | Emergency (ER) | payer SELFPAY ==
--- OUTSIDE RECORDS SUMMARY | 2019-02-12 05:08 | XMS REPORT | Clinical Summary ---
:1985 Author Organization [facility] Address [address] [place] [address] Care Team Providers Name Role Phone Pcp, No Primary Care Provider Unavailable Allergies Active Allergy Reactions Severity Noted Date Comments Morphine Other (See Comments) Medium 12/11/2018 Pt has hallucination with medication Medications Medication Sig Dispensed Refills Start Date [...] 2 mg Active Problems Problem Noted Date Pneumothorax on left 12/10/2018 CARLOS EDUARDO (acute kidney injury) 12/10/2018 Hypokalemia 12/10/2018 Alcohol withdrawal syndrome, with delirium 12/10/2018 Alcohol withdrawal syndrome without complication 10/28/2018 Electrolyte disturbance 10/28/2018 Elevated LFTs 10/28/2018 Uncontrolled hypertension 10/02/2018 Alcohol withdrawal 09/29/2018 Alcohol-induced acute pancreatitis without infection or necrosis 09/29/2018 Acute metabolic encephalopathy 09/29/2018 Encounters Date Type Specialty Care Team Description 12/10/2018 - [facility] Internal Leslee Castillo Alcohol withdrawal syndrome, with delirium (HCC); 12/13/2018 Encounter Medicine MD Rashmi CARLOS EDUARDO (acute kidney injury) (HCC); Willy Delacruz Alcohol withdrawal syndrome without complication ( HCC); MD Jen Elevated LFTs; Brooke Shaw MD Pneumothorax on left; Uncomplicated alcohol dependence (HCC); Alcohol-induced acute pancreatitis without infection or necrosis 12/10/2018 Travel 10/27/2018 - [facility] Internal Fariba Escobedo Alcohol withdrawal syndrome without complication (HCC); 11/01/2018 Encounter Medicine MD Genia Alcohol-induced acute pancreatitis without infection or necrosis; Maribeth Whalen MD Elevated LFTs; Misbah, Electrolyte disturbance; MD Sue Hallucination, visual; Alcohol withdrawal delirium (HCC) 09/29/2018 - [facility] Internal Valarie Cannon MD Alcohol withdrawal syndrome, with delirium (HCC); 10/02/2018 Encounter Medicine Jonathan Mccurdy Alcohol-induced acute pancreatitis, unspecified complication status; MD Natacha Acute metabolic encephalopathy; Maribeth Whalen MD Colitis; Acute alcoholic hepatitis; Alcohol-induced acute pancreatitis without infection or necrosis; Electrolyte disturbance; Essential hypertension; Uncontrolled hypertension 09/29/2018 Orders Only General Internal Medicine after 02/11/2018 Family History Medical History Relation Name Comments Hypertension Mother Relation Name Status Comments Mother Social History Tobacco Use Types Packs/Day Years Used Date Current Every Day Smoker Cigarettes 2 Smokeless Tobacco: Former User Snuff Tobacco Cessation: Ready to Quit: No; Counseling Given: Yes Alcohol Use Drinks/Week oz/Week Comments Yes 3 Shots of liquor 1.8 1 pint of vodka every day for 9 months Sex Assigned at Date Recorded Not on file Job Start Date Occupation Industry Not on file Not on file Not on file Travel History Travel Start Travel End No recent travel history available. Last Filed Vital Signs Vital Sign Reading Time Taken Blood Pressure 141/98 12/13/2018 11:19 AM CDT Pulse 92 12/13/2018 11:19 AM CDT Temperature 36.4 C (97.6 F) 12/13/2018 11:19 AM CDT Respiratory Rate 18 12/13/2018 11:19 AM CDT Oxygen Saturation 99% 12/13/2018 11:19 AM CDT Inhaled Oxygen Concentration - - Weight 72.6 kg (160 lb) 12/10/2018 5:00 PM CDT Height 180.3 cm (5' 10.98") 12/10/2018 5:00 PM CDT Body Mass Index 22.33 12/10/2018 5:00 PM CDT Plan of Treatment Not on file Procedures Procedure Name Priority Date/Time Associated Comments Diagnosis RHYTHM STRIP - SCAN 12/16/2018 2:41 PM CDT REPORT OF PROCEDURE - 12/16/2018 2:41 ENDOSCOPY SCAN PM CDT RHYTHM STRIP - SCAN 12/16/2018 11:00 AM CDT CBC W/PLT COUNT & AUTO Routine 12/13/2018 4:49 Results for this DIFFERENTIAL AM CDT procedure are in the results section. CBC W/PLT COUNT & AUTO Routine 12/13/2018 4:49 Results for this DIFFERENTIAL AM CDT procedure are in the results section. MR ABDOMEN WO CONTRAST Routine 12/12/2018 12:17 Results for this MRCP PM CDT procedure are in the results section. COMPREHENSIVE Routine 12/12/2018 9:21 Results for this METABOLIC PANEL AM CDT procedure are in the results section. CBC W/PLT COUNT & AUTO Routine 12/12/2018 4:16 Results for this DIFFERENTIAL AM CDT procedure are in the results section. CBC W/PLT COUNT & AUTO Routine 12/12/2018 4:16 Results for this DIFFERENTIAL AM CDT procedure are in the results section. XR ESOPH SWALLOW CRYSTAL 12/11/2018 10:40 Results for this FUNCTION W/CINE VIDEO AM CDT procedure are in the results section. BASIC METABOLIC PANEL Routine 12/11/2018 7:02 Results for this (7) AM CDT procedure are in the results section. CBC W/PLT COUNT & AUTO Routine 12/11/2018 6:58 Results for this DIFFERENTIAL AM CDT procedure are in the results section. CBC W/PLT COUNT & AUTO Routine 12/11/2018 6:58 Results for this DIFFERENTIAL AM CDT procedure are in the results section. CBC W/PLT COUNT & AUTO Routine 12/10/2018 6:30 Results for this DIFFERENTIAL PM CDT procedure are in the results section. COMPREHENSIVE Routine 12/10/2018 6:30 Results for this METABOLIC PANEL PM CDT procedure are in the results section. CBC W/PLT COUNT & AUTO Routine 12/10/2018 6:30 Results for this DIFFERENTIAL PM CDT procedure are in the results section. MAGNESIUM Routine 12/10/2018 6:30 Results for this PM CDT procedure are in the results section. PROTHROMBIN TIME/INR Routine 12/10/2018 6:30 Results for this PM CDT procedure are in the results section. XR CHEST 1 VIEW STAT 12/10/2018 7:15 Results for this PORTABLE/BEDSIDE AM CDT procedure are in the results section. US ABDOMINAL WITH STAT 10/31/2018 9:52 Results [...] 326 ms QTC Calculation(Bazett) 523 ms P [place] 60 degrees R [place] 81 degrees T [place] 13 degrees Sinus tachycardia Cannot rule out Anterior infarct , age undetermined T wave abnormality, consider inferolateral ischemia Abnormal ECG No previous ECGs available ECG 12-LEAD Routine 09/29/2018 3:45 AM CDT after 02/11/2018 Results RHYTHM STRIP - SCAN (12/16/2018 2:41 PM CDT)Only the most recent of3 resultswithin the time period is included. Narrative Performed At EKG-SCANNED (12/16/2018 2:41 PM CDT) Narrative Performed At CBC with platelet count + automated diff (12/13/2018 4:49 AM CDT)Only the most recent of10 resultswithin the time period is included. WBC 3.1 (L) 3.5 - 10.5 K/L [facility] RBC 3.39 (L) 4.63 - 6.08 M/L [facility] Hemoglobin 11.5 (L) 13.7 - 17.5 GM/DL [facility] Hematocrit 33.7 (L) 40.1 - 51.0 % [facility] MCV 99.4 (H) 79.0 - 92.2 fL [facility] MCH 33.9 (H) 25.7 - 32.2 pg [facility] MCHC 34.1 32.3 - 36.5 GM/DL [facility] RDW 12.8 11.6 - 14.4 % [facility] Platelets 130 (L) 150 - 450 K/CU MM [facility] MPV 10.4 9.4 - 12.4 fL [facility] nRBC 0 0 - 0 /100 WBC [facility] % Neutros 51 % [facility] % Lymphs 31 % [facility] % Monos 12 % [facility] % Eos 4 % [facility] % Baso 1 % [facility] # Neutros 1.61 (L) 1.78 - 5.38 K/L [facility] # Lymphs 0.98 (L) 1.32 - 3.57 K/L [facility] # Monos 0.38 0.30 - 0.82 K/L [facility] # Eos 0.11 0.04 - 0.54 K/L [facility] # Baso 0.04 0.01 - 0.08 K/L [facility] Immature Granulocytes-Relative 1 0 - 1 % [facility] Specimen Blood Performing Organization Address City/State/Zipcode Phone Number [facility] [address] [place] [address] CENTER MR abdomen without IV contrast MRCP (12/12/2018 12:17 PM CDT) Specimen Narrative Performed At FINAL REPORT [employer] MRCP, MRI of abdomen without contrast Clinical History: Pancreatitis, acute, SIRS, elev WBC, fever Technique: Multiplanar and multisequence MR images of the biliary system are obtained, with dedicated MRCP protocol and images. No intravenous contrast is administered. In addition, 3 dimensional reformatted images of the biliary system are obtained to evaluate the biliary anatomy. Comparison: CT dated September 29, 2018 Discussion: This examination is not dedicated to evaluating masses or parenchymal abnormalities of the abdominal organs. Liver is markedly enlarged, measuring 25 cm sagittally. It is also severely fatty. No discrete liver mass is identified on this noncontrast exam. No evidence of biliary ductal dilatation, CBD measures approximately 6 mm in diameter. Gallbladder is unremarkable. No gallstone is identified. Contour of the main pancreatic duct is mildly irregular, and there is an apparent stricture in the region of pancreatic neck and head. Pancreas appears mildly enlarged, associated with adjacent edema, compatible with history of pancreatitis. In the pancreatic tail there is a 1 cm cystic lesion that may represent a small cystic neoplasm versus pseudocyst. No drainable peripancreatic collection is identified. Spleen is mildly enlarged measuring 13.4 cm sagittally. Adrenal glands and kidneys appear unremarkable. No lymphadenopathy. There is trace perihepatic ascites. No bony lesion identified. Impression: Findings compatible with pancreatitis. The main duct appears mildly irregular in contour, and there is apparent ductal stricture in the pancreatic head and neck. 1 cm cystic focus in the pancreatic tail may represent a small cystic neoplasm versus intrapancreatic pseudocyst. Is amenable to follow-up. Hepatosplenomegaly. Severe hepatic steatosis. No biliary ductal dilatation. No cholelithiasis or choledocholithiasis identified. Trace ascites. Signed: Korin Reyes MD Report Verified Date/Time:12/12/2018 13:31:00 Reading Location: [facility] B1 C013Y CT Body Reading Room Procedure Note Interface, External Ris In - 12/12/2018 1:33 PM CDT FINAL REPORT MRCP, MRI of abdomen without contrast Clinical History: Pancreatitis, acute, SIRS, elev WBC, fever Technique: Multiplanar and multisequence MR images of the biliary system are obtained, with dedicated MRCP protocol and images. No intravenous contrast is administered. In addition, 3 dimensional reformatted images of the biliary system are obtained to evaluate the biliary anatomy. Comparison: CT dated September 29, 2018 Discussion: This examination is not dedicated to evaluating masses or parenchymal abnormalities of the abdominal organs. Liver is markedly enlarged, measuring 25 cm sagittally. It is also severely fatty. No discrete liver mass is identified on this noncontrast exam. No evidence of biliary ductal dilatation, CBD measures approximately 6 mm in diameter. Gallbladder is unremarkable. No gallstone is identified. Contour of the main pancreatic duct is mildly irregular, and there is an apparent stricture in the region of pancreatic neck and head. Pancreas appears mildly enlarged, associated with adjacent edema, compatible with history of pancreatitis. In the pancreatic tail there is a 1 cm cystic lesion that may represent a small cystic neoplasm versus pseudocyst. No drainable peripancreatic collection is identified. Spleen is mildly enlarged measuring 13.4 cm sagittally. Adrenal glands and kidneys appear unremarkable. No lymphadenopathy. There is trace perihepatic ascites. No bony lesion identified. Impression: Findings compatible with pancreatitis. The main duct appears mildly irregular in contour, and there is apparent ductal stricture in the pancreatic head and neck. 1 cm cystic focus in the pancreatic tail may represent a small cystic neoplasm versus intrapancreatic pseudocyst. Is amenable to follow-up. Hepatosplenomegaly. Severe hepatic steatosis. No biliary ductal dilatation. No cholelithiasis or choledocholithiasis identified. Trace ascites. Signed: Korin Reyes MD Report Verified Date/Time: 12/12/2018 13:31:00 Reading Location: [facility] B1 C013Y CT Body Reading Room Performing Organization Address City/State/Zipcode Phone Number [facility] Comprehensive metabolic panel (12/12/2018 9:21 AM CDT)Only the most recent of10 resultswithin the time period is included. Protein, Total 5.5 (L) 6.0 - 8.3 gm/dL [facility] Albumin 3.1 (L) 3.5 - 5.0 g/dL [facility] Alkaline Phosphatase 116 40 - 150 U/L [facility] Total Bilirubin 1.9 (H) 0.2 - 1.2 mg/dL [facility] Sodium 139 136 - 145 meq/L [facility] Potassium 3.0 (L) 3.5 - 5.1 meq/L [facility] Chloride 107 98 - 107 meq/L [facility] CO2 23 22 - 29 meq/L [facility] BUN 4 (L) 7 - 21 mg/dL [facility] Creatinine 0.56 (L) 0.57 - 1.25 mg/dL [facility] Glucose 116 (H) 70 - 105 mg/dL [facility] Calcium 7.4 (L) 8.4 - 10.2 mg/dL [facility] AST 297 (H) 5 - 34 U/L [facility] ALT 173 (H) 6 - 55 U/L [facility] EGFR 169Comment: ESTIMATED mL/min/1.73 sq m [facility] GFR IS NOT ACCURATE [facility] CREATININE CLEARANCE IN PREDICTING GLOMERULAR FILTRATION RATE. ESTIMATED GFR IS NOT APPLICABLE FOR DIALYSIS PATIENTS. Specimen Blood Performing Organization Address City/State/Zipcode Phone Number [facility] [address] [place] [address] [place] esoph swallow funct with cine video (12/11/2018 10:40 AM CDT) Specimen Narrative Performed At FINAL REPORT [employer] INDICATION: Pneumomediastinum. Evaluate for esophageal perforation. COMPARISON: Chest radiograph December 10, 2018 TECHNIQUE: Esophagram. Fluoroscopy time 0.6 minutes. Fluoroscopic images 9. FINDINGS: The patient was positioned supine on the fluoroscopy table in reverse Trendelenburg position. The patient was administered approximately 40 cc of Gastrografin by mouth. AP and AP oblique fluoroscopy was used to visualize contrast passing down the esophagus. This was unremarkable. No extraluminal contrast demonstrated and contrast passed normally into the stomach. IMPRESSION: No evidence of esophageal leak. Signed: Heriberto Christensen MD Report Verified Date/Time:12/11/2018 12:02:17 Reading Location: [address] Ortho Consult Reading Room Procedure Note Interface, External Ris In - 12/11/2018 12:04 PM CDT FINAL REPORT INDICATION: Pneumomediastinum. Evaluate for esophageal perforation. COMPARISON: Chest radiograph December 10, 2018 TECHNIQUE: Esophagram. Fluoroscopy time 0.6 minutes. Fluoroscopic images 9. FINDINGS: The patient was positioned supine on the fluoroscopy table in reverse Trendelenburg position. The patient was administered approximately 40 cc of Gastrografin by mouth. AP and AP oblique fluoroscopy was used to visualize contrast passing down the esophagus. This was unremarkable. No extraluminal contrast demonstrated and contrast passed normally into the stomach. IMPRESSION: No evidence of esophageal leak. Signed: Heriberto Christensen MD Report Verified Date/Time: 12/11/2018 12:02:17 Reading Location: [facility] C013 Ortho Consult Reading Room Performing Organization Address City/State/Zipcode Phone Number [facility] Basic Metabolic Panel (12/11/2018 7:02 AM CDT)Only the most recent of4 resultswithin the time period is included. Sodium 139 136 - 145 meq/L [facility] Potassium 3.4 (L)Comment: Specimen 3.5 - 5.1 meq/L [facility] slightly hemolyzed [facility] Chloride 103 98 - 107 meq/L [facility] CO2 20 (L) 22 - 29 meq/L [facility] BUN 18 7 - 21 mg/dL [facility] Creatinine 0.73Comment: Specimen 0.57 - 1.25 mg/dL [facility] slightly hemolyzed [facility] Glucose 67 (L) 70 - 105 mg/dL [facility] Calcium 8.6 8.4 - 10.2 mg/dL [facility] EGFR 125Comment: ESTIMATED GFR IS mL/min/1.73 sq m [facility] NOT ACCURATE CREATININE [facility] CLEARANCE IN PREDICTING GLOMERULAR FILTRATION RATE. ESTIMATED GFR IS NOT APPLICABLE FOR DIALYSIS PATIENTS. Specimen Blood Performing Organization Address [facility] Phone Number [address] [address] CENTER Prothrombin time/INR (12/10/2018 6:30 PM CDT)Only the most recent of4 resultswithin the time period is included. Protime 15.8 (H) 11.7 - 14.7 seconds [facility] INR 1.3 <=5.9 [facility] Specimen Blood Narrative Performed At RECOMMENDED COUMADIN/WARFARIN INR THERAPY [facility] RANGES STANDARD DOSE: 2.0 - 3.0 Includes: PROPHYLAXIS for venous thrombosis, systemic embolization; TREATMENT for venous thrombosis and/or pulmonary embolus. HIGH RISK: Target INR is 2.5-3.5 for patients with mechanical heart valves. Performing Organization Address [facility] Phone Number [address] [address] CENTER Magnesium (12/10/2018 6:30 PM CDT)Only the most recent of10 resultswithin the time period is included. Magnesium 1.8Comment: Specimen slightly 1.6 - 2.6 mg/dL [facility] hemolyzed [facility] Specimen Blood Performing Organization Address City/State/Zipcode Phone Number [facility] [address] [place] [address] [phone] CENTER XR chest 1 view portable / bedside (12/10/2018 7:15 AM CDT)Only the most recent of2 resultswithin the time period is included. Specimen Narrative Performed At FINAL REPORT [employer] History: Outside or presumptive diagnosis of pneumomediastinum. Comparison: 10/28/2018 Findings: A single view of the chest is submitted. The cardiomediastinal contours are unremarkable. No pneumomediastinum is identified on plain radiography. Better evaluation with CT chest can be obtained, if clinically indicated. There is no focal consolidation, pneumothorax, large pleural effusion or evidence of overt pulmonary edema. There is no acute bony abnormality. Signed: Tan Mcmanus MD Report Verified Date/Time:12/10/2018 20:13:39 Reading Location: [address] Reading Room Procedure Note Interface, External Ris In - 12/10/2018 8:15 PM CDT FINAL REPORT History: Outside or presumptive diagnosis of pneumomediastinum. Comparison: 10/28/2018 Findings: A single view of the chest is submitted. The cardiomediastinal contours are unremarkable. No pneumomediastinum is identified on plain radiography. Better evaluation with CT chest can be obtained, if clinically indicated. There is no focal consolidation, pneumothorax, large pleural effusion or evidence of overt pulmonary edema. There is no acute bony abnormality. Signed: Tan Mcmanus MD Report Verified Date/Time: 12/10/2018 20:13:39 Reading Location: [address] Reading Room Performing Organization Address City/[facility]/Zipcode Phone Number [facility] US abdominal with doppler (10/31/2018 9:52 AM CDT) Specimen Narrative Performed At FINAL REPORT [employer] Abdominal Doppler Ultrasound Clinical Diagnosis: Portal hypertension [...] MD Report Verified Date/Time:10/31/2018 10:43:58 Reading Location: [facility] [id number] Ultrasound Reading Room Procedure Note Interface, External [...] Report Verified Date/Time: 10/31/2018 10:43:58 Reading Location: [facility] [id number] Ultrasound Reading Room Performing Organization Address City/State/Zipcode Phone Number [facility] Hemoglobin A1c (10/30/2018 3:54 AM CDT) Hemoglobin A1C 4.9 4.3 - 6.1 % [facility] Specimen Blood Performing Organization Address City/[facility]/Zipcode Phone Number [place] [phone] [place], [place] [phone] CENTER XR abdomen / KUB 1 view (10/29/2018 1:13 PM CDT) Specimen Narrative Performed At FINAL REPORT [facility] TECHNIQUE: Supine radiographs of the abdomen dated 10/29/2018. HISTORY: Abdominal distention. COMPARISON: None IMPRESSION: No air-filled, dilated loops of bowel to suggest obstruction. No free intraperitoneal air. No abnormal soft tissue mass or calcification. Signed: Nancy Concepcion MD Report Verified Date/Time:10/29/2018 14:17:17 Reading Location: [facility] Radiology Reading Room Procedure Note Interface, External Ris In - 10/29/2018 2:19 PM CDT FINAL REPORT TECHNIQUE: Supine radiographs of the abdomen dated 10/29/2018. HISTORY: Abdominal distention. COMPARISON: None IMPRESSION: No air-filled, dilated loops of bowel to suggest obstruction. No free intraperitoneal air. No abnormal soft tissue mass or calcification. Signed: Nancy Concepcion MD Report Verified Date/Time: 10/29/2018 14:17:17 Reading Location: [facility] Radiology Reading Room Performing Organization Address City/State/Zipcode Phone Number [facility] Phosphorus (10/29/2018 4:13 AM CDT)Only the most recent of7 resultswithin the time period is included. Phosphorus 2.5 2.3 - 4.7 mg/dL [facility] Specimen Blood Performing Organization Address City/[facility]/Zipcode Phone Number [facility] [address] [place], [place] [phone] CENTER Lipid panel (10/29/2018 4:13 AM CDT) Triglycerides 90 mg/dL [facility] Cholesterol 140 mg/dL [facility] HDL 37 mg/dL [facility] LDL Calculated 85 mg/dL [facility] Specimen Blood Narrative Performed At Triglyceride Reference Range: [facility] Low Risk <150 [id number] High Risk 200-499 Very High Risk>=500 Cholesterol Reference Range: Low Risk <200 [id number] High Risk>240 HDL Cholesterol Reference Range: Low Risk >=60 High Risk <40 LDL Cholesterol Reference Range: Optimal<100 Near [id number] Very High >=190 Performing Organization Address City/State/Zipcode Phone Number [facility] [address] [place] [address] [phone] CENTER STD Panel - CT/GC RNA (10/28/2018 5:53 PM CDT) C. trachomatis RNA, TMA NOT DETECTED [facility] N. gonorrhoeae RNA, TMA NOT DETECTED [facility] Comment: INCORPORATED REFERENCE RANGE:NOT DETECTED This test was performed using the APTIMA(R) COMBO2 Assay (GENCirqlePROBE). Specimen Urine Narrative Performed At Performing Lab [facility] *QDID Xray [facility] [address] [place] [phone] Maico Villarreal MD Performing Organization Address City/[facility] Phone Number [place] [address] [place] [address] Urinalysis w/Microscopic + Reflex to Culture (10/28/2018 5:52 PM CDT) Color, UA Yellow [facility] Clarity, UA Clear [facility] Specific [place], UA 1.007 1.001 - 1.035 [facility] pH, UA 7.5 5.0 - 8.0 [facility] Protein, UA 20 mg/dL (A) Negative [facility] Glucose, UA Negative Negative [facility] Ketones, UA 20 mg/dL (A) Negative [facility] Bilirubin, UA Negative Negative [facility] Blood, UA Trace (A) Negative [facility] Nitrite, UA Negative Negative [facility] Leukocytes, UA Negative Negative [facility] Urobilinogen, UA 2.0 (H) 0.2 - 1.0 mg/dL [facility] RBC, UA 3 /HPF [facility] WBC, UA <1 /HPF [facility] Mucus Rare [facility] Specimen Source [facility] Specimen Urine Performing Organization Address City/[facility] Phone Number [address] [address] [phone] [place] Blood Culture - Routine (Right Venipuncture) (10/28/2018 12:40 PM CDT)Only the most recent of2 resultswithin the time period is included. Result No growth in 5 days [facility] Specimen Blood Performing Organization Address [facility] Phone Number [address] [address] [place] Hepatitis A antibody, IgG (10/28/2018 12:22 PM CDT) Hep A IgG Nonreactive Nonreactive [facility] Specimen Blood Performing Organization Address City/[facility]/Zipcode Phone Number [address] [address] [phone] [place] Vitamin B12 and Folate (10/28/2018 12:22 PM CDT) Vitamin B12 1,678 (H) 213 - 816 pg/mL [facility] Folate 19.4 >=7.0 ng/mL [facility] Specimen Blood Performing Organization Address City/[facility] Phone Number [address] [address] [phone] [facility] Iron, TIBC, % sat. (without ferritin) (10/28/2018 12:22 PM CDT) Iron 44.0 40.0 - 160.0 ug/dL [facility] TIBC 186 (L) 250 - 450 ug/dL [facility] Iron % Saturation 24 20 - 55 % [facility] Specimen Blood Performing Organization Address City/[facility] Phone Number [address] [address] [phone] [place] HIV-1 Antigen with HIV-1/2 Antibody (10/28/2018 12:22 PM CDT) HIV-1 Antigen with HIV 1&2 Nonreactive Nonreactive [facility] Specimen Blood Performing Organization Address City/[facility] Phone Number [address] [address] [phone] C[place] Hepatitis C antibody (10/28/2018 12:22 PM CDT) Hepatitis C Ab Nonreactive Nonreactive [facility] Specimen Blood Performing Organization Address City/[facility] Phone Number [address] [address] [phone] [place] Hepatitis A antibody, IgM (10/28/2018 12:22 PM CDT) Hep A IgM Nonreactive Nonreactive [facility] Specimen Blood Performing Organization Address City/[facility]/Zipcode Phone Number [address] [address] C[place] Hepatitis B core antibody, total (10/28/2018 12:22 PM CDT) Hep B Core Total Ab Nonreactive Nonreactive [facility] Specimen Blood Performing Organization Address City/[facility]/Zipcode Phone Number [address] [address] [place] Hepatitis C PCR, Quantitative (10/28/2018 12:22 PM CDT) HCV PCR, Quantitative HCV RNA not detected HCV RNA not detected [facility] Specimen Blood Narrative Performed At This test uses a Real-Time Polymerase Chain [facility] Reaction (RT-PCR) methodology and was performed using MARIANO Ampliprep/MARIANO TaqMan HCV test kit version 2.0 ([employer] Reportable range for this assay is 15 - 100,000,000 IU per mL (1.18 - 8.00 Log IU/mL). Performing Organization Address City/[facility] [place] [address] [place] RPR (10/28/2018 12:22 PM CDT) RPR Nonreactive Nonreactive [facility] Specimen Blood Performing Organization Address [facility] Phone Number [address] [address] [phone] [place] Hepatitis B surface antibody (10/28/2018 12:22 PM CDT) Hep B S Ab 34.5 (H) <8.0 mIU/mL [facility] Specimen Blood Performing Organization Address [facility] Phone Number [address] [address] [place] Hepatitis B surface antigen (10/28/2018 12:22 PM CDT) hepatitis B Surface Ag Nonreactive Nonreactive [facility] Specimen Blood Performing Organization Address [facility] Phone Number [address] [phone] [facility] Ferritin (10/28/2018 12:22 PM CDT) Ferritin 1,698 (H) 5 - 275 ng/mL [facility] Specimen Blood Performing Organization Address [facility]/Zipcode Phone Number [address] [address] CENTER POC-Glucose meter (10/02/2018 12:12 PM CDT)Only the most recent of8 resultswithin the time period is included. POC-Glucose Meter 99Comment: TESTED AT 70 - 110 mg/dL [facility] [address] [place] [id number] Specimen Blood Performing Organization Address City/State/Zipcode Phone Number [address] [address] [place] Lactic acid, venous, Daily (2018 4:59 AM CDT)Only the most recent of3 resultswithin the time period is included. Lactate, Venous 1.0 0.5 - 2.2 mmol/L [facility] Specimen Blood Performing Organization Address [facility] Phone Number [address] [address] [place] US abdomen limited (09/30/2018 5:40 AM CDT) Specimen Narrative Performed At FINAL REPORT [employer] Right upper quadrant abdominal ultrasound, 09/30/2018. History: [...] MD Report Verified Date/Time:09/30/2018 08:05:48 Reading Location: [address] Ultrasound Reading Room Procedure Note Interface, [...] Report Verified Date/Time: 09/30/2018 08:05:48 Reading Location: [address] Ultrasound Reading Room Performing Organization Address City/State/Zipcode Phone Number [facility] Procalcitonin (09/30/2018 12:14 AM CDT) Procalcitonin 0.48 (H) <0.05 ng/mL [facility] Specimen Blood Narrative Performed At SEPSIS RISK (ng/mL) [facility] Low:0.05-0.50 Intermediate: 0.51-2.00 High: >=2.01 Performing Organization Address City/State/Zipcode Phone Number [place] [phone] [place], [place] [phone] [place] Potassium (09/29/2018 2:14 PM CDT) Potassium 3.4 (L) 3.5 - 5.1 meq/L [facility] Specimen Blood Performing Organization Address [facility]/Zipcode Phone Number [address] [place] [address] abdomen/pelvis without & with IV contrast (09/29/2018 12:30 PM CDT) Specimen Narrative Performed At FINAL REPORT [facility] CT abdomen with and without contrast. CT [...] MD Report Verified Date/Time:09/29/2018 12:38:07 Reading Location: [facility] [id number] Ortho Consult Reading Room Procedure Note [...] Report Verified Date/Time: 09/29/2018 12:38:07 Reading Location: [facility] [id number] [facility] Consult Reading Room Performing Organization Address [facility] Phone Number RIS Triglycerides (09/29/2018 3:51 AM CDT) Triglycerides 71Comment: Specimen slightly mg/dL [facility] hemolyzed [facility] Specimen Blood Narrative Performed At [facility]IGLYCERIDE [facility] Low Risk<150 Borderline Risk 150-199 High [id number] Very High Risk >=500 Performing Organization Address [facility] Phone Number [address] [address] [place] Lipase (09/29/2018 3:51 AM CDT) Lipase >1200 (H) 8 - 78 U/L [facility] Specimen Blood Performing Organization Address [facility] Phone Number [address] [address] [place] ECG 12 lead (09/29/2018 3:45 AM CDT) Specimen Narrative Performed At Ventricular Rate 155 BPM GE MUSE Atrial Rate 155 BPM P-R Interval 120 ms QRS Duration 88 ms Q-T Interval 326 ms QTC Calculation(Bazett) 523 ms P [place] 60 degrees R [place] 81 degrees T [place] 13 degrees Sinus tachycardia Cannot rule out Anterior infarct , age undetermined T wave abnormality, consider inferolateral ischemia Abnormal ECG No previous ECGs available Confirmed by MD Rosado Roberto ([id number]) on 09/29/2018 2:19:06 PM Procedure Note Interface, External Ris In - 09/29/2018 2:19 PM CDT Ventricular Rate 155 BPM Atrial Rate 155 BPM P-R Interval 120 ms QRS Duration 88 ms Q-T Interval 326 ms QTC Calculation(Bazett) 523 ms P [place] 60 degrees R [place] 81 degrees T [place] 13 degrees Sinus tachycardia Cannot rule out Anterior infarct , age undetermined T wave abnormality, consider inferolateral ischemia Abnormal ECG No previous ECGs available Confirmed by MD Rosado Roberto ([id number]) on 09/29/2018 2:19:06 PM Performing Organization Address City/State/Zipcode Phone Number GE MUSE after 02/11/2018 Advance Directives For more information, please contact:[address] [phone] Code Status Date Activated Date Inactivated Comments Full Code 10/27/2018 11:55 PM 11/01/2018 6:16 PM This code status was determined by: Patient Full Code 09/29/2018 3:15 AM 10/02/2018 6:49 PM This code status was determined by: Patient
--- OUTSIDE RECORDS SUMMARY | 2019-02-12 05:09 | XMS REPORT ---
:1985 [facility] Address [address] [place] [address] Dr. Romano [address] [place] [id number] Care Team Providers Name Role Phone MIKAYLA MENDEZ Unavailable Unavailable YENNY NELSON Unavailable Unavailable ИВАН REMY Unavailable Unavailable Problems This patient has no known problems. Allergies, Adverse Reactions, Alerts This patient has no known allergies or adverse reactions. Medications This patient has no known medications. Results Test Description Test Time Test Comments Text Results Atomic Results Result Comments CBC W/PLT COUNT & AUTO DIFFERENTIAL 2018-12-13 05:36:00 Test Item Value Reference Range Comments WHITE BLOOD CELL COUNT (BEAKER) (test wbxm=101) 3.1 K/ L 3.5-10.5 RED BLOOD CELL COUNT (BEAKER) (test fwwa=732) 3.39 M/ L 4.63-6.08 HEMOGLOBIN (BEAKER) (test deni=549) 11.5 GM/DL 13.7-17.5 HEMATOCRIT (BEAKER) (test jxnx=411) 33.7 % 40.1-51.0 MEAN CORPUSCULAR VOLUME (BEAKER) (test gxcp=683) 99.4 fL 79.0-92.2 MEAN CORPUSCULAR HEMOGLOBIN (BEAKER) (test nkpk=509) 33.9 pg 25.7-32.2 MEAN CORPUSCULAR HEMOGLOBIN CONC (BEAKER) (test alhm=355) 34.1 GM/DL 32.3- 36.5 RED CELL DISTRIBUTION WIDTH (BEAKER) (test iwrx=938) 12.8 % 11.6-14.4 PLATELET COUNT (BEAKER) (test tzze=735) 130 K/CU MM 150-450 MEAN PLATELET VOLUME (BEAKER) (test swro=031) 10.4 fL 9.4-12.4 NUCLEATED RED BLOOD CELLS (BEAKER) (test goyl=361) 0 /100 WBC 0-0 NEUTROPHILS RELATIVE PERCENT (BEAKER) (test wfmn=659) 51 % LYMPHOCYTES RELATIVE PERCENT (BEAKER) (test rjgg=435) 31 % MONOCYTES RELATIVE PERCENT (BEAKER) (test xhgm=170) 12 % EOSINOPHILS RELATIVE PERCENT (BEAKER) (test cxdh=479) 4 % BASOPHILS RELATIVE PERCENT (BEAKER) (test zond=359) 1 % NEUTROPHILS ABSOLUTE COUNT (BEAKER) (test hbor=591) 1.61 K/ L 1.78-5.38 LYMPHOCYTES ABSOLUTE COUNT (BEAKER) (test dwrf=372) 0.98 K/ L 1.32-3.57 MONOCYTES ABSOLUTE COUNT (BEAKER) (test kxmu=635) 0.38 K/ L 0.30-0.82 EOSINOPHILS ABSOLUTE COUNT (BEAKER) (test snqp=663) 0.11 K/ L 0.04-0.54 BASOPHILS ABSOLUTE COUNT (BEAKER) (test nxma=288) 0.04 K/ L 0.01-0.08 IMMATURE GRANULOCYTES-RELATIVE PERCENT (BEAKER) (test 1 % 0-1 emio=7091) MR, ABDOMEN, [id number] 13:31:00FINAL REPORT MRCP, MRI of abdomen without contrast Clinical History: Pancreatitis, acute, SIRS, elev WBC, fever Technique: Multiplanar and multisequence MR images of the biliarysystem are obtained, with dedicated MRCP protocol and images. No intravenous contrast is administered. In addition, 3 dimensional reformatted images of the biliary system are obtained to evaluate the biliary anatomy. Comparison: CT dated September 29, 2018 Discussion: This examination is not dedicated toevaluating masses or parenchymal abnormalities of the abdominal [...] that may represent a small cystic neoplasm versuspseudocyst. No drainable peripancreatic collection is identified. Spleen [...] choledocholithiasis identified. Trace ascites. Signed: Korin Reyes MDReport Verified Date/Time: 12/12/2018 13:31:00 Reading Location: [facility] [id number] Body Reading Room COMPREHENSIVE METABOLIC [id number] 09:56:00 Test Item Value Reference Range Comments TOTAL PROTEIN (BEAKER) 5.5 gm/dL 6.0-8.3 (test diif=646) ALBUMIN (BEAKER) (test 3.1 g/dL 3.5-5.0 wymt=9248) ALKALINE PHOSPHATASE 116 U/L 40-150 (BEAKER) (test pxyt=159) BILIRUBIN TOTAL (BEAKER) 1.9 mg/dL 0.2-1.2 (test pehm=843) SODIUM (BEAKER) (test 139 meq/L 136-145 nawm=479) POTASSIUM (BEAKER) (test 3.0 meq/L 3.5-5.1 msqe=179) CHLORIDE (BEAKER) (test 107 meq/L 98-107 dbpv=489) CO2 (BEAKER) (test 23 meq/L 22-29 ztix=946) BLOOD UREA NITROGEN 4 mg/dL 7-21 (BEAKER) (test rwvf=650) CREATININE (BEAKER) (test 0.56 mg/dL 0.57-1.25 niwd=838) GLUCOSE RANDOM (BEAKER) 116 mg/dL 70-105 (test wmrl=658) CALCIUM (BEAKER) (test 7.4 mg/dL 8.4-10.2 xiwz=573) AST (SGOT) (BEAKER) (test 297 U/L 5-34 crme=324) ALT (SGPT) (BEAKER) (test 173 U/L 6-55 ebtk=791) EGFR (BEAKER) (test 169 mL/min/1.73 sq ESTIMATED GFR IS NOT tban=6328) m ACCURATE CREATININE CLEARANCE IN PREDICTING GLOMERULAR FILTRATION RATE. ESTIMATED GFR IS NOT APPLICABLE FOR DIALYSIS PATIENTS. CBC W/PLT COUNT & AUTO [id number] 04:42:00 Test Item Value Reference Range Comments WHITE BLOOD CELL COUNT (BEAKER) (test boaq=028) 3.1 K/ L 3.5-10.5 RED BLOOD CELL COUNT (BEAKER) (test csto=557) 3.09 M/ L 4.63-6.08 HEMOGLOBIN (BEAKER) (test jmbn=264) 10.7 GM/DL 13.7-17.5 HEMATOCRIT (BEAKER) (test mdqt=046) 30.5 % 40.1-51.0 MEAN CORPUSCULAR VOLUME (BEAKER) (test gjep=034) 98.7 fL 79.0-92.2 MEAN CORPUSCULAR HEMOGLOBIN (BEAKER) (test 34.6 pg 25.7-32.2 szkj=710) MEAN CORPUSCULAR HEMOGLOBIN CONC (BEAKER) (test 35.1 GM/DL 32.3-36.5 wwmo=011) RED CELL DISTRIBUTION WIDTH (BEAKER) (test 12.4 % 11.6-14.4 vsll=044) PLATELET COUNT (BEAKER) (test pics=852) 99 K/CU MM 150-450 MEAN PLATELET VOLUME (BEAKER) (test uzxs=110) 11.0 fL 9.4-12.4 NUCLEATED RED BLOOD CELLS (BEAKER) (test 0 /100 WBC 0-0 xabp=773) NEUTROPHILS RELATIVE PERCENT (BEAKER) (test 60 % wlxg=405) LYMPHOCYTES RELATIVE PERCENT (BEAKER) (test 26 % zoof=294) MONOCYTES RELATIVE PERCENT (BEAKER) (test 11 % viag=038) EOSINOPHILS RELATIVE PERCENT (BEAKER) (test 2 % akdl=657) BASOPHILS RELATIVE PERCENT (BEAKER) (test 1 % pgcj=340) NEUTROPHILS ABSOLUTE COUNT (BEAKER) (test 1.84 K/ L 1.78-5.38 ggrq=195) LYMPHOCYTES ABSOLUTE COUNT (BEAKER) (test 0.81 K/ L 1.32-3.57 nyhr=027) MONOCYTES ABSOLUTE COUNT (BEAKER) (test cjex=319) 0.34 K/ L 0.30-0.82 EOSINOPHILS ABSOLUTE COUNT (BEAKER) (test 0.06 K/ L 0.04-0.54 dpgf=161) BASOPHILS ABSOLUTE COUNT (BEAKER) (test mudm=637) 0.03 K/ L 0.01-0.08 IMMATURE GRANULOCYTES-RELATIVE PERCENT (BEAKER) 0 % 0-1 (test mbjh=4694) FL, ESOPH, SWALLOW FUNCTION, WITH CINE OR [id number] 12:02:00Reason for exam:->pneumomediastinum, rule out esophageal perforationFINAL REPORT INDICATION:Pneumomediastinum. Evaluate for esophageal perforation. COMPARISON: Chest radiograph December 10, 2018 TECHNIQUE: Esophagram.Fluoroscopy time 0.6 minutes.Fluoroscopic images 9. FINDINGS:The patient was positioned supine on the fluoroscopy table in reverse Trendelenburg position. The patient was administered approximately 40 cc of Gastrografin by mouth. AP andAP oblique fluoroscopy was used to visualize contrast passing down the esophagus. This was unremarkable. No extraluminal contrast demonstrated and contrast passed normally into the stomach. IMPRESSION:No evidence of esophageal leak. Signed: Heriberto Christensen MDReport Verified Date/Time: 12/11/2018 12:02: 17 Reading Location: [address] Consult Reading Room BASIC METABOLIC [id number] 07:31:00 Test Item Value Reference Range Comments SODIUM (BEAKER) (test 139 meq/L 136-145 owaa=517) POTASSIUM (BEAKER) (test 3.4 meq/L 3.5-5.1 Specimen slightly gnnh=321) hemolyzed CHLORIDE (BEAKER) (test 103 meq/L 98-107 pccw=454) CO2 (BEAKER) (test 20 meq/L 22-29 sips=854) BLOOD UREA NITROGEN 18 mg/dL 7-21 (BEAKER) (test eyef=932) CREATININE (BEAKER) (test 0.73 mg/dL 0.57-1.25 Specimen slightly logx=128) hemolyzed GLUCOSE RANDOM (BEAKER) 67 mg/dL 70-105 (test lhkl=005) CALCIUM (BEAKER) (test 8.6 mg/dL 8.4-10.2 niwk=629) EGFR (BEAKER) (test 125 mL/min/1.73 sq m ESTIMATED GFR IS NOT pnnq=0219) ACCURATE CREATININE CLEARANCE IN PREDICTING GLOMERULAR FILTRATION RATE. ESTIMATED GFR IS NOT APPLICABLE FOR DIALYSIS PATIENTS. CBC W/PLT COUNT & AUTO [id number] 07:12:00 Test Item Value Reference Range Comments WHITE BLOOD CELL COUNT (BEAKER) (test ezrj=783) 4.6 K/ L 3.5-10.5 RED BLOOD CELL COUNT (BEAKER) (test rfxa=926) 3.19 M/ L 4.63-6.08 HEMOGLOBIN (BEAKER) (test bevt=633) 11.1 GM/DL 13.7-17.5 HEMATOCRIT (BEAKER) (test gfqf=384) 31.0 % 40.1-51.0 MEAN CORPUSCULAR VOLUME (BEAKER) (test kocb=205) 97.2 fL 79.0-92.2 MEAN CORPUSCULAR HEMOGLOBIN (BEAKER) (test 34.8 pg 25.7-32.2 nlcj=366) MEAN CORPUSCULAR HEMOGLOBIN CONC (BEAKER) (test 35.8 GM/DL 32.3-36.5 cmic=419) RED CELL DISTRIBUTION WIDTH (BEAKER) (test 13.0 % 11.6-14.4 webq=244) PLATELET COUNT (BEAKER) (test dagq=847) 103 K/CU MM 150-450 MEAN PLATELET VOLUME (BEAKER) (test yogi=130) 11.0 fL 9.4-12.4 NUCLEATED RED BLOOD CELLS (BEAKER) (test 0 /100 WBC 0-0 vaqn=402) NEUTROPHILS RELATIVE PERCENT (BEAKER) (test 73 % xxaw=130) LYMPHOCYTES RELATIVE PERCENT (BEAKER) (test 16 % bnnc=327) MONOCYTES RELATIVE PERCENT (BEAKER) (test 9 % cfcl=698) EOSINOPHILS RELATIVE PERCENT (BEAKER) (test 1 % qfkq=075) BASOPHILS RELATIVE PERCENT (BEAKER) (test 0 % salh=029) NEUTROPHILS ABSOLUTE COUNT (BEAKER) (test 3.36 K/ L 1.78-5.38 hbte=874) LYMPHOCYTES ABSOLUTE COUNT (BEAKER) (test 0.75 K/ L 1.32-3.57 vkst=064) MONOCYTES ABSOLUTE COUNT (BEAKER) (test 0.41 K/ L 0.30-0.82 rapx=935) EOSINOPHILS ABSOLUTE COUNT (BEAKER) (test 0.04 K/ L 0.04-0.54 fmtx=500) BASOPHILS ABSOLUTE COUNT (BEAKER) (test 0.02 K/ L 0.01-0.08 jbfr=836) IMMATURE GRANULOCYTES-RELATIVE PERCENT (BEAKER) 1 % 0-1 (test uffj=4280) RAD, CHEST, 1 VIEW, NON [id number] 20:13:00Reason for exam:-> pneumomediastinumShould this be performed at the bedside?->YesFINAL REPORT History: Outside or presumptive diagnosis of pneumomediastinum.Comparison: 10/28/2018 Findings: A single view of the chest is submitted. The cardiomediastinal contours are unremarkable. No pneumomediastinum is identified on plain radiography. Better evaluation withCT chest can be obtained, if clinically indicated. There is no focal consolidation , pneumothorax, large pleural effusion or evidence of overt pulmonary edema. There is no acute bony abnormality. Signed: Tan Mcmanus MDReport Verified Date /Time: 12/10/2018 20:13:39 Reading Location: [address] Reading Room [id number] 19:12:00 Test Item Value Reference Range Comments MAGNESIUM (BEAKER) (test 1.8 mg/dL 1.6-2.6 Specimen slightly hemolyzed clwo=970) COMPREHENSIVE METABOLIC [id number] 19:12:00 Test Item Value Reference Range Comments TOTAL PROTEIN (BEAKER) 6.3 gm/dL 6.0-8.3 Specimen slightly (test jxfh=608) hemolyzed ALBUMIN (BEAKER) (test 3.7 g/dL 3.5-5.0 Specimen slightly ccta=6963) hemolyzed ALKALINE PHOSPHATASE 129 U/L 40-150 (BEAKER) (test qcic=419) BILIRUBIN TOTAL (BEAKER) 2.9 mg/dL 0.2-1.2 Specimen slightly (test mpia=772) hemolyzed SODIUM (BEAKER) (test 137 meq/L 136-145 xpif=514) POTASSIUM (BEAKER) (test 2.7 meq/L 3.5-5.1 Specimen slightly lixs=205) hemolyzed CHLORIDE (BEAKER) (test 99 meq/L 98-107 pbxs=810) CO2 (BEAKER) (test 23 meq/L 22-29 zgip=381) BLOOD UREA NITROGEN 22 mg/dL 7-21 (BEAKER) (test iwaa=547) CREATININE (BEAKER) (test 1.28 mg/dL 0.57-1.25 Specimen slightly rqzi=421) hemolyzed GLUCOSE RANDOM (BEAKER) 78 mg/dL 70-105 (test urhm=601) CALCIUM (BEAKER) (test 8.5 mg/dL 8.4-10.2 uhan=497) AST (SGOT) (BEAKER) (test 502 U/L 5-34 Specimen slightly snfb=298) hemolyzed ALT (SGPT) (BEAKER) (test 225 U/L 6-55 Specimen slightly owgx=581) hemolyzed EGFR (BEAKER) (test 65 mL/min/1.73 sq m ESTIMATED GFR IS NOT fdeb=1753) ACCURATE CREATININE CLEARANCE IN PREDICTING GLOMERULAR FILTRATION RATE. ESTIMATED GFR IS NOT APPLICABLE FOR DIALYSIS PATIENTS. Specimen slightly ictericPROTHROMBIN [id number] 18:53:00 Test Item Value Reference Range Comments PROTIME (BEAKER) (test dhzs=812) 15.8 seconds 11.7-14.7 INR (BEAKER) (test bgyw=348) 1.3 <=5.9 RECOMMENDED COUMADIN/WARFARIN INR THERAPY RANGESSTANDARD DOSE: 2.0 - 3.0 Includes: PROPHYLAXIS forvenous thrombosis, systemic embolization; TREATMENT for venous thrombosis and/or pulmonary embolus.HIGH RISK: Target INR is 2.5-3.5 for patients with mechanical heart valves.CBC W/PLT COUNT & AUTO [id number] 18:49:00 Test Item Value Reference Range Comments WHITE BLOOD CELL COUNT (BEAKER) (test evhi=900) 6.0 K/ L 3.5-10.5 RED BLOOD CELL COUNT (BEAKER) (test rmdf=048) 3.44 M/ L 4.63-6.08 HEMOGLOBIN (BEAKER) (test mkjh=002) 11.6 GM/DL 13.7-17.5 HEMATOCRIT (BEAKER) (test mbeg=424) 34.1 % 40.1-51.0 MEAN CORPUSCULAR VOLUME (BEAKER) (test lbmg=065) 99.1 fL 79.0-92.2 MEAN CORPUSCULAR HEMOGLOBIN (BEAKER) (test 33.7 pg 25.7-32.2 orvz=547) MEAN CORPUSCULAR HEMOGLOBIN CONC (BEAKER) (test 34.0 GM/DL 32.3-36.5 wiib=045) RED CELL DISTRIBUTION WIDTH (BEAKER) (test 13.1 % 11.6-14.4 kjsa=675) PLATELET COUNT (BEAKER) (test vndk=581) 109 K/CU MM 150-450 MEAN PLATELET VOLUME (BEAKER) (test ecxf=378) 11.0 fL 9.4-12.4 NUCLEATED RED BLOOD CELLS (BEAKER) (test 0 /100 WBC 0-0 abjp=430) NEUTROPHILS RELATIVE PERCENT (BEAKER) (test 81 % mmgs=431) LYMPHOCYTES RELATIVE PERCENT (BEAKER) (test 12 % vnqb=239) MONOCYTES RELATIVE PERCENT (BEAKER) (test 7 % nyyr=537) EOSINOPHILS RELATIVE PERCENT (BEAKER) (test 0 % zjct=401) BASOPHILS RELATIVE PERCENT (BEAKER) (test 0 % brex=682) NEUTROPHILS ABSOLUTE COUNT (BEAKER) (test 4.84 K/ L 1.78-5.38 rgww=993) LYMPHOCYTES ABSOLUTE COUNT (BEAKER) (test 0.72 K/ L 1.32-3.57 lhjy=857) MONOCYTES ABSOLUTE COUNT (BEAKER) (test 0.41 K/ L 0.30-0.82 ugfe=794) EOSINOPHILS ABSOLUTE COUNT (BEAKER) (test 0.01 K/ L 0.04-0.54 ialw=092) BASOPHILS ABSOLUTE COUNT (BEAKER) (test 0.02 K/ L 0.01-0.08 yktx=974) IMMATURE GRANULOCYTES-RELATIVE PERCENT (BEAKER) 0 % 0-1 (test ijwu=1608) BLOOD [id number] 20:01:00 Test Item Value Reference Range Comments CULTURE (BEAKER) (test snvu=1385) No growth in 5 days BLOOD [id number] 20:01:00 Test Item Value Reference Range Comments CULTURE (BEAKER) (test njvp=5709) No growth in 5 days RAD, CHEST, 1 VIEW, NON [id number] 13:13:00Reason for exam:->evalute for pneumoniaShould this be performed at the bedside?->YesAddendum BeginsREPORT STATUS:A Addendum:Clinical diagnosis alcohol withdrawalsyndrome, electrolyte disturbances, elevated liver function tests, pneumonia, Signed: Marilu Sharpe Verified Date/Time: 11/01/2018 13:13: 23 Reading Location: [place] [id number] Consult Reading RoomAddendum EndsFINAL REPORT Chest radiograph [...] parenchymal opacity. Impression:No active cardiopulmonary disease. Signed: Marilu Sharpe Verified Date/Time: 10/28 15:36:38 Reading Location: [facility] C013W Consult Reading Room U/S, ABDOMINAL, WITH [id number] 10:43:00Reason for exam:->evaluate for portal hypertension, cirrhosis, [...] prominent at 8 mm.Unremarkable abdominal Dopplerultrasound. Signed: Marilu Sharpe Verified Date/Time: 10/31/2018 10:43:58 Reading Location: [address] Ultrasound Reading Room COMPREHENSIVE METABOLIC [id number] 06:57:00 Test Item Value Reference Range Comments TOTAL PROTEIN (BEAKER) 6.3 gm/dL 6.0-8.3 (test rhtl=584) ALBUMIN (BEAKER) (test 3.4 g/dL 3.5-5.0 adyt=4160) ALKALINE PHOSPHATASE 165 U/L 40-150 (BEAKER) (test xrkm=666) BILIRUBIN TOTAL (BEAKER) 0.6 mg/dL 0.2-1.2 (test orfj=636) SODIUM (BEAKER) (test 140 meq/L 136-145 sbmn=643) POTASSIUM (BEAKER) (test 3.6 meq/L 3.5-5.1 ctvf=123) CHLORIDE (BEAKER) (test 102 meq/L 98-107 anfk=434) CO2 (BEAKER) (test 29 meq/L 22-29 ojov=906) BLOOD UREA NITROGEN 3 mg/dL 7-21 (BEAKER) (test rvqz=437) CREATININE (BEAKER) (test 0.55 mg/dL 0.57-1.25 tltw=334) GLUCOSE RANDOM (BEAKER) 89 mg/dL 70-105 (test ycuq=656) CALCIUM (BEAKER) (test 9.2 mg/dL 8.4-10.2 csof=256) AST (SGOT) (BEAKER) (test 184 U/L 5-34 nghz=905) ALT (SGPT) (BEAKER) (test 156 U/L 6-55 hjko=072) EGFR (BEAKER) (test 173 mL/min/1.73 sq ESTIMATED GFR IS NOT slun=2699) m ACCURATE CREATININE CLEARANCE IN PREDICTING GLOMERULAR FILTRATION RATE. ESTIMATED GFR IS NOT APPLICABLE FOR DIALYSIS PATIENTS. HEMOGLOBIN [id number] 09:30:00 Test Item Value Reference Range Comments HEMOGLOBIN A1C (BEAKER) (test unss=671) 4.9 % 4.3-6.1 COMPREHENSIVE METABOLIC [id number] 05:17:00 Test Item Value Reference Range Comments TOTAL PROTEIN (BEAKER) 6.5 gm/dL 6.0-8.3 (test dtay=821) ALBUMIN (BEAKER) (test 3.6 g/dL 3.5-5.0 gbkp=0986) ALKALINE PHOSPHATASE 170 U/L 40-150 (BEAKER) (test jftp=970) BILIRUBIN TOTAL (BEAKER) 0.9 mg/dL 0.2-1.2 (test vwlt=459) SODIUM (BEAKER) (test 141 meq/L 136-145 qusw=822) POTASSIUM (BEAKER) (test 3.5 meq/L 3.5-5.1 qltc=759) CHLORIDE (BEAKER) (test 104 meq/L 98-107 abxa=750) CO2 (BEAKER) (test 26 meq/L 22-29 dxmv=202) BLOOD UREA NITROGEN 4 mg/dL 7-21 (BEAKER) (test fnfv=728) CREATININE (BEAKER) (test 0.55 mg/dL 0.57-1.25 ntvm=269) GLUCOSE RANDOM (BEAKER) 89 mg/dL 70-105 (test koad=920) CALCIUM (BEAKER) (test 9.3 mg/dL 8.4-10.2 ppgu=980) AST (SGOT) (BEAKER) (test 167 U/L 5-34 blow=926) ALT (SGPT) (BEAKER) (test 156 U/L 6-55 lfyc=372) EGFR (BEAKER) (test 173 mL/min/1.73 sq ESTIMATED GFR IS NOT pxzx=6888) m ACCURATE CREATININE CLEARANCE IN PREDICTING GLOMERULAR FILTRATION RATE. ESTIMATED GFR IS NOT APPLICABLE FOR DIALYSIS PATIENTS. CBC W/PLT COUNT & AUTO [id number] 04:53:00 Test Item Value Reference Range Comments WHITE BLOOD CELL COUNT (BEAKER) (test atkh=690) 3.4 K/ L 3.5-10.5 RED BLOOD CELL COUNT (BEAKER) (test ktwo=538) 3.45 M/ L 4.63-6.08 HEMOGLOBIN (BEAKER) (test teou=694) 11.8 GM/DL 13.7-17.5 HEMATOCRIT (BEAKER) (test bizv=776) 34.4 % 40.1-51.0 MEAN CORPUSCULAR VOLUME (BEAKER) (test xiin=671) 99.7 fL 79.0-92.2 MEAN CORPUSCULAR HEMOGLOBIN (BEAKER) (test 34.2 pg 25.7-32.2 ivqh=380) MEAN CORPUSCULAR HEMOGLOBIN CONC (BEAKER) (test 34.3 GM/DL 32.3-36.5 hkeo=240) RED CELL DISTRIBUTION WIDTH (BEAKER) (test 12.2 % 11.6-14.4 dqiq=181) PLATELET COUNT (BEAKER) (test mvgv=026) 175 K/CU MM 150-450 MEAN PLATELET VOLUME (BEAKER) (test onbg=661) 10.3 fL 9.4-12.4 NUCLEATED RED BLOOD CELLS (BEAKER) (test 0 /100 WBC 0-0 xysz=064) NEUTROPHILS RELATIVE PERCENT (BEAKER) (test 55 % tjja=722) LYMPHOCYTES RELATIVE PERCENT (BEAKER) (test 30 % axxh=168) MONOCYTES RELATIVE PERCENT (BEAKER) (test 11 % gryw=230) EOSINOPHILS RELATIVE PERCENT (BEAKER) (test 3 % qkpw=529) BASOPHILS RELATIVE PERCENT (BEAKER) (test 1 % xrys=681) NEUTROPHILS ABSOLUTE COUNT (BEAKER) (test 1.89 K/ L 1.78-5.38 dvme=282) LYMPHOCYTES ABSOLUTE COUNT (BEAKER) (test 1.03 K/ L 1.32-3.57 mcam=735) MONOCYTES ABSOLUTE COUNT (BEAKER) (test 0.39 K/ L 0.30-0.82 wsca=379) EOSINOPHILS ABSOLUTE COUNT (BEAKER) (test 0.09 K/ L 0.04-0.54 hxna=921) BASOPHILS ABSOLUTE COUNT (BEAKER) (test 0.03 K/ L 0.01-0.08 gzbl=378) IMMATURE GRANULOCYTES-RELATIVE PERCENT (BEAKER) 0 % 0-1 (test mxjx=6106) LIPID [id number] 17:30:00 Test Item Value Reference Range Comments TRIGLYCERIDES (BEAKER) (test bxog=267) 90 mg/dL CHOLESTEROL (BEAKER) (test puhp=652) 140 mg/dL HDL CHOLESTEROL (BEAKER) (test hqgd=857) 37 mg/dL LDL CHOLESTEROL CALCULATED (BEAKER) (test 85 mg/dL ijpd=741) Triglyceride Reference Range: Low Risk <150 Borderline 150- 199 High Risk 200-499 Very High Risk >=500Cholesterol Reference Range: Low Risk <200 Borderline 200-239 High Risk > 240HDL Cholesterol Reference Range: Low Risk >=60 High Risk <40LDL Cholesterol Reference Range: Optimal <100 Near Optimal 100-129 Borderline 130-159 High 160-189 Very High >=190HEPATITIS C PCR, [id number] 14:57:00 Test Item Value Reference Range Comments HCV RESULT COMPONENT (BEAKER) HCV RNA not detected HCV RNA not detected (test zvcp=9077) This test uses a Real-Time Polymerase Chain Reaction (RT-PCR) methodology and was performed using [employer] Ampliprep/MARIANO TaqMan HCV test kit version 2.0 ( [employer]).Reportable range for this assay is 15 - 100,000, 000 IU per mL (1.18 - 8.00 Log IU/mL).RAD, ABDOMEN/KUB, 1 VIEW [id number] 14: 17:00Reason for exam:->abd distensionFINAL REPORT TECHNIQUE: Supine radiographs of the abdomen dated 10/29/2018. HISTORY: Abdominal distention. COMPARISON: None IMPRESSION:No air-filled, dilated loops of bowel to suggest obstruction. No free intraperitoneal air. No abnormal soft tissue mass or calcification. Signed:Nancy Concepcion MDReport Verified Date/ Time: 10/29/2018 14:17:17 Reading Location: [facility] Radiology Reading Room [id number] 13:28:00 Test Item Value Reference Range Comments RPR SCREEN (BEAKER) (test kkfz=279) Nonreactive Nonreactive [id number] 05:12:00 Test Item Value Reference Range Comments PHOSPHORUS (BEAKER) (test jqcm=147) 2.5 mg/dL 2.3-4.7 COMPREHENSIVE METABOLIC [id number] 05:12:00 Test Item Value Reference Range Comments TOTAL PROTEIN (BEAKER) 6.9 gm/dL 6.0-8.3 (test kirs=660) ALBUMIN (BEAKER) (test 3.9 g/dL 3.5-5.0 ottx=2434) ALKALINE PHOSPHATASE 200 U/L 40-150 (BEAKER) (test wmvq=209) BILIRUBIN TOTAL (BEAKER) 1.2 mg/dL 0.2-1.2 (test wrxq=388) SODIUM (BEAKER) (test 137 meq/L 136-145 qoyg=765) POTASSIUM (BEAKER) (test 3.3 meq/L 3.5-5.1 kkvw=279) CHLORIDE (BEAKER) (test 97 meq/L 98-107 jpxo=358) CO2 (BEAKER) (test 27 meq/L 22-29 gqbz=033) BLOOD UREA NITROGEN 3 mg/dL 7-21 (BEAKER) (test bvfa=824) CREATININE (BEAKER) (test 0.57 mg/dL 0.57-1.25 jovh=268) GLUCOSE RANDOM (BEAKER) 108 mg/dL 70-105 (test amnc=168) CALCIUM (BEAKER) (test 9.4 mg/dL 8.4-10.2 pazo=861) AST (SGOT) (BEAKER) (test 263 U/L 5-34 cizh=340) ALT (SGPT) (BEAKER) (test 215 U/L 6-55 riqh=225) EGFR (BEAKER) (test 166 mL/min/1.73 sq ESTIMATED GFR IS NOT moaa=5168) m ACCURATE CREATININE CLEARANCE IN PREDICTING GLOMERULAR FILTRATION RATE. ESTIMATED GFR IS NOT APPLICABLE FOR DIALYSIS PATIENTS. PROTHROMBIN [id number] 04:53:00 Test Item Value Reference Range Comments PROTIME (BEAKER) (test utpi=172) 16.0 seconds 11.7-14.7 INR (BEAKER) (test brkr=609) 1.3 <=5.9 RECOMMENDED COUMADIN/WARFARIN INR THERAPY RANGESSTANDARD DOSE: 2.0 - 3.0 Includes: PROPHYLAXIS forvenous thrombosis, systemic embolization; TREATMENT for venous thrombosis and/or pulmonary embolus.HIGH RISK: Target INR is 2.5-3.5 for patients with mechanical heart valves.URINALYSIS W/ REFLEX URINE [id number] 18:43:00 Test Item Value Reference Range Comments COLOR (BEAKER) (test iwtn=504) Yellow CLARITY (BEAKER) (test hwfz=794) Clear SPECIFIC GRAVITY UA (BEAKER) (test wlif=591) 1.007 1.001-1.035 PH UA (BEAKER) (test iicz=495) 7.5 5.0-8.0 PROTEIN UA (BEAKER) (test iytw=469) 20 mg/dL Negative GLUCOSE UA (BEAKER) (test onco=304) Negative Negative KETONES UA (BEAKER) (test ndfm=804) 20 mg/dL Negative BILIRUBIN UA (BEAKER) (test gxou=515) Negative Negative BLOOD UA (BEAKER) (test ygzb=775) Trace Negative NITRITE UA (BEAKER) (test dmgg=624) Negative Negative LEUKOCYTE ESTERASE UA (BEAKER) (test meaf=737) Negative Negative UROBILINOGEN UA (BEAKER) (test munh=151) 2.0 mg/dL 0.2-1.0 RBC UA (BEAKER) (test yiqv=303) 3 /HPF WBC UA (BEAKER) (test akjp=431) < /HPF MUCUS (BEAKER) (test mfmz=1392) Rare SOURCE(BEAKER) (test ieep=9749) VITAMIN B12 AND [id number] 15:08:00 Test Item Value Reference Range Comments VITAMIN B12 (BEAKER) (test ljtb=984) 1678 pg/mL 213-816 FOLATE (BEAKER) (test iwfd=535) 19.4 ng/mL >=7.0 [id number] 14:48:00 Test Item Value Reference Range Comments FERRITIN (BEAKER) (test qpnr=825) 1698 ng/mL 5-275 IRON, TIBC, % SAT. (WITHOUT FERRITIN)2018-10-28 13:26:00 Test Item Value Reference Range Comments IRON (BEAKER) (test rqqb=362) 44.0 ug/dL 40.0-160.0 TOTAL IRON BINDING CAPACITY (BEAKER) (test 186 ug/dL 250-450 uddg=738) IRON % SATURATION (2) (BEAKER) (test urli=6160) 24 % 20-55 HEPATITIS B SURFACE [id number] 13:26:00 Test Item Value Reference Range Comments HEPATITIS B SURFACE ANTIGEN (2) (BEAKER) (test Nonreactive Nonreactive hlyi=1802) HEPATITIS C [id number] 13:26:00 Test Item Value Reference Range Comments HEPATITIS C ANTIBODY (BEAKER) (test phot=854) Nonreactive Nonreactive HIV-1 ANTIGEN WITH HIV-1/2 [id number] 13:26:00 Test Item Value Reference Range Comments HIV-1 ANTIGEN WITH HIV 1\T\2 ANTIBODY (2) Nonreactive Nonreactive (BEAKER) (test hicv=8396) HEPATITIS B SURFACE [id number] 13:19:00 Test Item Value Reference Range Comments HEPATITIS B SURFACE ANTIBODY (BEAKER) (test 34.5 mIU/mL <8.0 uutl=970) HEPATITIS A ANTIBODY, [id number] 13:19:00 Test Item Value Reference Range Comments HEPATITIS A IGM ANTIBODY (BEAKER) (test Nonreactive Nonreactive zvnz=168) HEPATITIS B CORE ANTIBODY, [id number] 13:19:00 Test Item Value Reference Range Comments HEPATITIS B CORE TOTAL ANTIBODY (BEAKER) (test Nonreactive Nonreactive knuu=227) HEPATITIS A ANTIBODY, [id number] 13:19:00 Test Item Value Reference Range Comments HEPATITIS A IGG ANTIBODY (BEAKER) (test Nonreactive Nonreactive wgqg=8579) PROTHROMBIN [id number] 13:00:00 Test Item Value Reference Range Comments PROTIME (BEAKER) (test cbuu=833) 15.5 seconds 11.7-14.7 INR (BEAKER) (test oega=518) 1.2 <=5.9 RECOMMENDED COUMADIN/WARFARIN INR THERAPY RANGESSTANDARD DOSE: 2.0 - 3.0 Includes: PROPHYLAXIS forvenous thrombosis, systemic embolization; TREATMENT for venous thrombosis and/or pulmonary embolus.HIGH RISK: Target INR is 2.5-3.5 for patients with mechanical heart valves.[id number] 03:31:00 Test Item Value Reference Range Comments PHOSPHORUS (BEAKER) (test rvvn=849) 3.5 mg/dL 2.3-4.7 [id number] 03:31:00 Test Item Value Reference Range Comments MAGNESIUM (BEAKER) (test uexs=429) 1.5 mg/dL 1.6-2.6 COMPREHENSIVE METABOLIC [id number] 03:31:00 Test Item Value Reference Range Comments TOTAL PROTEIN (BEAKER) 6.5 gm/dL 6.0-8.3 (test dqpl=784) ALBUMIN (BEAKER) (test 3.7 g/dL 3.5-5.0 jlwg=4520) ALKALINE PHOSPHATASE 200 U/L 40-150 (BEAKER) (test oprc=069) BILIRUBIN TOTAL (BEAKER) 0.8 mg/dL 0.2-1.2 (test eggs=294) SODIUM (BEAKER) (test 142 meq/L 136-145 vclq=950) POTASSIUM (BEAKER) (test 3.1 meq/L 3.5-5.1 olea=140) CHLORIDE (BEAKER) (test 103 meq/L 98-107 omct=432) CO2 (BEAKER) (test 24 meq/L 22-29 szcc=241) BLOOD UREA NITROGEN 4 mg/dL 7-21 (BEAKER) (test dpud=361) CREATININE (BEAKER) (test 0.55 mg/dL 0.57-1.25 hfuq=871) GLUCOSE RANDOM (BEAKER) 100 mg/dL 70-105 (test qxlm=143) CALCIUM (BEAKER) (test 8.5 mg/dL 8.4-10.2 srqo=001) AST (SGOT) (BEAKER) (test 318 U/L 5-34 skhr=931) ALT (SGPT) (BEAKER) (test 244 U/L 6-55 zifk=925) EGFR (BEAKER) (test 173 mL/min/1.73 sq ESTIMATED GFR IS NOT qjmf=0467) m ACCURATE CREATININE CLEARANCE IN PREDICTING GLOMERULAR FILTRATION RATE. ESTIMATED GFR IS NOT APPLICABLE FOR DIALYSIS PATIENTS. CBC W/PLT COUNT & AUTO [id number] 03:03:00 Test Item Value Reference Range Comments WHITE BLOOD CELL COUNT (BEAKER) (test xkus=784) 4.2 K/ L 3.5-10.5 RED BLOOD CELL COUNT (BEAKER) (test nqxl=363) 3.61 M/ L 4.63-6.08 HEMOGLOBIN (BEAKER) (test rmlq=703) 12.3 GM/DL 13.7-17.5 HEMATOCRIT (BEAKER) (test pssr=412) 35.9 % 40.1-51.0 MEAN CORPUSCULAR VOLUME (BEAKER) (test gnum=621) 99.4 fL 79.0-92.2 MEAN CORPUSCULAR HEMOGLOBIN (BEAKER) (test 34.1 pg 25.7-32.2 vwae=368) MEAN CORPUSCULAR HEMOGLOBIN CONC (BEAKER) (test 34.3 GM/DL 32.3-36.5 evgp=975) RED CELL DISTRIBUTION WIDTH (BEAKER) (test 12.3 % 11.6-14.4 pnzp=355) PLATELET COUNT (BEAKER) (test ovfh=000) 122 K/CU MM 150-450 MEAN PLATELET VOLUME (BEAKER) (test lsmk=688) 9.8 fL 9.4-12.4 NUCLEATED RED BLOOD CELLS (BEAKER) (test 0 /100 WBC 0-0 htsk=474) NEUTROPHILS RELATIVE PERCENT (BEAKER) (test 70 % chim=187) LYMPHOCYTES RELATIVE PERCENT (BEAKER) (test 17 % vqqn=129) MONOCYTES RELATIVE PERCENT (BEAKER) (test 11 % odxh=987) EOSINOPHILS RELATIVE PERCENT (BEAKER) (test 1 % gnvk=744) BASOPHILS RELATIVE PERCENT (BEAKER) (test 1 % vnft=953) NEUTROPHILS ABSOLUTE COUNT (BEAKER) (test 2.94 K/ L 1.78-5.38 sarf=982) LYMPHOCYTES ABSOLUTE COUNT (BEAKER) (test 0.73 K/ L 1.32-3.57 qint=358) MONOCYTES ABSOLUTE COUNT (BEAKER) (test 0.45 K/ L 0.30-0.82 maiy=691) EOSINOPHILS ABSOLUTE COUNT (BEAKER) (test 0.04 K/ L 0.04-0.54 ymcq=737) BASOPHILS ABSOLUTE COUNT (BEAKER) (test 0.02 K/ L 0.01-0.08 tjkb=001) IMMATURE GRANULOCYTES-RELATIVE PERCENT (BEAKER) 1 % 0-1 (test npvn=5200) POCT-GLUCOSE [id number] 12:15:00 Test Item Value Reference Range Comments POC-GLUCOSE METER (BEAKER) 99 mg/dL 70-[address] [facility] [address] [facility] (test njwh=2530) [facility] [address] [id number] 06:15:00 Test Item Value Reference Range Comments MAGNESIUM (BEAKER) (test etir=131) 1.8 mg/dL 1.6-2.6 COMPREHENSIVE METABOLIC [id number] 06:15:00 Test Item Value Reference Range Comments TOTAL PROTEIN (BEAKER) 6.6 gm/dL 6.0-8.3 (test pqoi=536) ALBUMIN (BEAKER) (test 3.6 g/dL 3.5-5.0 tnlq=3193) ALKALINE PHOSPHATASE 149 U/L 40-150 (BEAKER) (test syme=533) BILIRUBIN TOTAL (BEAKER) 0.8 mg/dL 0.2-1.2 (test qlee=706) SODIUM (BEAKER) (test 135 meq/L 136-145 vkbn=247) POTASSIUM (BEAKER) (test 3.6 meq/L 3.5-5.1 igdq=721) CHLORIDE (BEAKER) (test 98 meq/L 98-107 bqis=726) CO2 (BEAKER) (test 26 meq/L 22-29 stwk=733) BLOOD UREA NITROGEN 8 mg/dL 7-21 (BEAKER) (test exsm=366) CREATININE (BEAKER) (test 0.57 mg/dL 0.57-1.25 neun=955) GLUCOSE RANDOM (BEAKER) 100 mg/dL 70-105 (test ttsr=310) CALCIUM (BEAKER) (test 9.5 mg/dL 8.4-10.2 surb=673) AST (SGOT) (BEAKER) (test 155 U/L 5-34 duzd=231) ALT (SGPT) (BEAKER) (test 151 U/L 6-55 bloa=939) EGFR (BEAKER) (test 166 mL/min/1.73 sq ESTIMATED GFR IS NOT cgfw=8327) m ACCURATE CREATININE CLEARANCE IN PREDICTING GLOMERULAR FILTRATION RATE. ESTIMATED GFR IS NOT APPLICABLE FOR DIALYSIS PATIENTS. CBC W/PLT COUNT & AUTO [id number] 05:30:00 Test Item Value Reference Range Comments WHITE BLOOD CELL COUNT (BEAKER) (test bfvi=190) 5.1 K/ L 3.5-10.5 RED BLOOD CELL COUNT (BEAKER) (test crxx=458) 3.81 M/ L 4.63-6.08 HEMOGLOBIN (BEAKER) (test jjqt=745) 13.1 GM/DL 13.7-17.5 HEMATOCRIT (BEAKER) (test ypqj=052) 37.6 % 40.1-51.0 MEAN CORPUSCULAR VOLUME (BEAKER) (test wqgz=522) 98.7 fL 79.0-92.2 MEAN CORPUSCULAR HEMOGLOBIN (BEAKER) (test 34.4 pg 25.7-32.2 xiwy=763) MEAN CORPUSCULAR HEMOGLOBIN CONC (BEAKER) (test 34.8 GM/DL 32.3-36.5 qlgt=684) RED CELL DISTRIBUTION WIDTH (BEAKER) (test 11.5 % 11.6-14.4 avvp=194) PLATELET COUNT (BEAKER) (test xggy=781) 152 K/CU MM 150-450 MEAN PLATELET VOLUME (BEAKER) (test pryl=790) 10.2 fL 9.4-12.4 NUCLEATED RED BLOOD CELLS (BEAKER) (test 0 /100 WBC 0-0 elnw=173) NEUTROPHILS RELATIVE PERCENT (BEAKER) (test 71 % xhut=292) LYMPHOCYTES RELATIVE PERCENT (BEAKER) (test 14 % pply=324) MONOCYTES RELATIVE PERCENT (BEAKER) (test 11 % ikve=363) EOSINOPHILS RELATIVE PERCENT (BEAKER) (test 2 % ibxn=939) BASOPHILS RELATIVE PERCENT (BEAKER) (test 1 % imgf=295) NEUTROPHILS ABSOLUTE COUNT (BEAKER) (test 3.66 K/ L 1.78-5.38 voon=222) LYMPHOCYTES ABSOLUTE COUNT (BEAKER) (test 0.71 K/ L 1.32-3.57 ynhj=355) MONOCYTES ABSOLUTE COUNT (BEAKER) (test 0.58 K/ L 0.30-0.82 phml=158) EOSINOPHILS ABSOLUTE COUNT (BEAKER) (test 0.10 K/ L 0.04-0.54 lkkb=414) BASOPHILS ABSOLUTE COUNT (BEAKER) (test 0.04 K/ L 0.01-0.08 pzpv=145) IMMATURE GRANULOCYTES-RELATIVE PERCENT (BEAKER) 1 % 0-1 (test trdw=8482) POCT-GLUCOSE [id number] 11:54:00 Test Item Value Reference Range Comments POC-GLUCOSE METER (BEAKER) 83 mg/dL 70-[address] [facility] [address] [facility] (test qnpy=1079) [facility] [address] [id number] 05:54:00 Test Item Value Reference Range Comments PHOSPHORUS (BEAKER) (test nztw=935) 2.3 mg/dL 2.3-4.7 [id number] 05:54:00 Test Item Value Reference Range Comments MAGNESIUM (BEAKER) (test lvgp=179) 2.0 mg/dL 1.6-2.6 COMPREHENSIVE METABOLIC [id number] 05:54:00 Test Item Value Reference Range Comments TOTAL PROTEIN (BEAKER) 6.0 gm/dL 6.0-8.3 (test tezj=278) ALBUMIN (BEAKER) (test 3.2 g/dL 3.5-5.0 yypd=7324) ALKALINE PHOSPHATASE 134 U/L 40-150 (BEAKER) (test jdhw=273) BILIRUBIN TOTAL (BEAKER) 1.1 mg/dL 0.2-1.2 (test lekl=468) SODIUM (BEAKER) (test 134 meq/L 136-145 aqfo=891) POTASSIUM (BEAKER) (test 3.6 meq/L 3.5-5.1 odoo=843) CHLORIDE (BEAKER) (test 100 meq/L 98-107 qouu=851) CO2 (BEAKER) (test 26 meq/L 22-29 bkjz=099) BLOOD UREA NITROGEN 4 mg/dL 7-21 (BEAKER) (test mnse=482) CREATININE (BEAKER) (test 0.54 mg/dL 0.57-1.25 wxnm=642) GLUCOSE RANDOM (BEAKER) 141 mg/dL 70-105 (test vabe=436) CALCIUM (BEAKER) (test 8.8 mg/dL 8.4-10.2 ebpi=334) AST (SGOT) (BEAKER) (test 183 U/L 5-34 vnes=305) ALT (SGPT) (BEAKER) (test 149 U/L 6-55 ebtm=381) EGFR (BEAKER) (test 176 mL/min/1.73 sq ESTIMATED GFR IS NOT mvli=6321) m ACCURATE CREATININE CLEARANCE IN PREDICTING GLOMERULAR FILTRATION RATE. ESTIMATED GFR IS NOT APPLICABLE FOR DIALYSIS PATIENTS. LACTIC ACID, [id number] 05:35:00 Test Item Value Reference Range Comments LACTATE BLOOD VENOUS (2) (BEAKER) (test 1.0 mmol/L 0.5-2.2 leea=8981) CBC W/PLT COUNT & AUTO [id number] 05:23:00 Test Item Value Reference Range Comments WHITE BLOOD CELL COUNT (BEAKER) (test okpv=427) 5.0 K/ L 3.5-10.5 RED BLOOD CELL COUNT (BEAKER) (test ohmn=494) 3.88 M/ L 4.63-6.08 HEMOGLOBIN (BEAKER) (test hbth=634) 13.0 GM/DL 13.7-17.5 HEMATOCRIT (BEAKER) (test sjoo=076) 38.5 % 40.1-51.0 MEAN CORPUSCULAR VOLUME (BEAKER) (test xhyo=437) 99.2 fL 79.0-92.2 MEAN CORPUSCULAR HEMOGLOBIN (BEAKER) (test 33.5 pg 25.7-32.2 rhiu=651) MEAN CORPUSCULAR HEMOGLOBIN CONC (BEAKER) (test 33.8 GM/DL 32.3-36.5 xlfs=703) RED CELL DISTRIBUTION WIDTH (BEAKER) (test 11.6 % 11.6-14.4 yalq=306) PLATELET COUNT (BEAKER) (test pzmt=952) 113 K/CU MM 150-450 MEAN PLATELET VOLUME (BEAKER) (test qriy=396) 10.7 fL 9.4-12.4 NUCLEATED RED BLOOD CELLS (BEAKER) (test 0 /100 WBC 0-0 yjwu=508) NEUTROPHILS RELATIVE PERCENT (BEAKER) (test 72 % zjgu=454) LYMPHOCYTES RELATIVE PERCENT (BEAKER) (test 15 % bixb=122) MONOCYTES RELATIVE PERCENT (BEAKER) (test 10 % jmny=247) EOSINOPHILS RELATIVE PERCENT (BEAKER) (test 2 % fwck=451) BASOPHILS RELATIVE PERCENT (BEAKER) (test 1 % xqcq=652) NEUTROPHILS ABSOLUTE COUNT (BEAKER) (test 3.56 K/ L 1.78-5.38 wyli=130) LYMPHOCYTES ABSOLUTE COUNT (BEAKER) (test 0.76 K/ L 1.32-3.57 uepo=129) MONOCYTES ABSOLUTE COUNT (BEAKER) (test 0.49 K/ L 0.30-0.82 jdap=840) EOSINOPHILS ABSOLUTE COUNT (BEAKER) (test 0.10 K/ L 0.04-0.54 uczw=235) BASOPHILS ABSOLUTE COUNT (BEAKER) (test 0.04 K/ L 0.01-0.08 hubi=866) IMMATURE GRANULOCYTES-RELATIVE PERCENT (BEAKER) 1 % 0-1 (test vhcz=1524) POCT-GLUCOSE [id number] 18:44:00 Test Item Value Reference Range Comments POC-GLUCOSE METER (BEAKER) 100 mg/dL 70-[address] [facility] [address] [place] [address] (test sclv=1240) [facility] [address] [id number] 17:58:00 Test Item Value Reference Range Comments PHOSPHORUS (BEAKER) (test ohzn=832) 2.3 mg/dL 2.3-4.7 [id number] 17:58:00 Test Item Value Reference Range Comments MAGNESIUM (BEAKER) (test pijn=129) 1.8 mg/dL 1.6-2.6 BASIC METABOLIC [id number] 17:58:00 Test Item Value Reference Range Comments SODIUM (BEAKER) (test 137 meq/L 136-145 uwot=091) POTASSIUM (BEAKER) (test 3.6 meq/L 3.5-5.1 fgok=139) CHLORIDE (BEAKER) (test 102 meq/L 98-107 tiyk=460) CO2 (BEAKER) (test 26 meq/L 22-29 ilfw=204) BLOOD UREA NITROGEN 4 mg/dL 7-21 (BEAKER) (test ilhd=191) CREATININE (BEAKER) (test 0.54 mg/dL 0.57-1.25 qpkq=242) GLUCOSE RANDOM (BEAKER) 123 mg/dL 70-105 (test egqw=390) CALCIUM (BEAKER) (test 8.7 mg/dL 8.4-10.2 xsib=241) EGFR (BEAKER) (test 177 mL/min/1.73 sq m ESTIMATED GFR IS NOT wgns=4731) ACCURATE CREATININE CLEARANCE IN PREDICTING GLOMERULAR FILTRATION RATE. ESTIMATED GFR IS NOT APPLICABLE FOR DIALYSIS PATIENTS. [id number] 16:55:00 Test Item Value Reference Range Comments MAGNESIUM (BEAKER) (test 1.6 mg/dL 1.6-2.6 Specimen slightly hemolyzed fjyf=454) [id number] 16:55:00 Test Item Value Reference Range Comments PHOSPHORUS (BEAKER) (test 2.3 mg/dL 2.3-4.7 Specimen slightly hemolyzed cnfu=568) BASIC METABOLIC [id number] 16:55:00 Test Item Value Reference Range Comments SODIUM (BEAKER) (test 138 meq/L 136-145 ywtv=151) POTASSIUM (BEAKER) (test 3.7 meq/L 3.5-5.1 Specimen slightly cggy=925) hemolyzed CHLORIDE (BEAKER) (test 105 meq/L 98-107 pddz=734) CO2 (BEAKER) (test 23 meq/L 22-29 yeyc=518) BLOOD UREA NITROGEN 4 mg/dL 7-21 (BEAKER) (test bufb=789) CREATININE (BEAKER) (test 0.51 mg/dL 0.57-1.25 Specimen slightly oljl=744) hemolyzed GLUCOSE RANDOM (BEAKER) 99 mg/dL 70-105 (test rvhf=945) CALCIUM (BEAKER) (test 8.0 mg/dL 8.4-10.2 jkez=227) EGFR (BEAKER) (test 190 mL/min/1.73 sq m ESTIMATED GFR IS NOT xldi=6571) ACCURATE CREATININE CLEARANCE IN PREDICTING GLOMERULAR FILTRATION RATE. ESTIMATED GFR IS NOT APPLICABLE FOR DIALYSIS PATIENTS. POCT-GLUCOSE [id number] 12:41:00 Test Item Value Reference Range Comments POC-GLUCOSE METER (BEAKER) 100 mg/dL 70-[address] [facility] [address] [facility] (test vxzu=5258) [facility] [address] POCT-GLUCOSE [id number] 08:07:00 Test Item Value Reference Range Comments POC-GLUCOSE METER (BEAKER) 99 mg/dL 70-[address] [facility] [address] (test eyfy=0356) [facility] [address] U/S, ABDOMINAL, [id number] 08:05:00Abdomen limited area? Add comment if clarification [...] secondary to portal hypertension. Signed: [facility] Verified Date /Time: 09/30/2018 08:05:48 Reading Location: [facility] P006J Ultrasound Reading Room [id number] 07:23:00 Test Item Value Reference Range Comments PHOSPHORUS (BEAKER) (test yhtx=239) 1.2 mg/dL 2.3-4.7 [id number] 07:11:00 Test Item Value Reference Range Comments MAGNESIUM (BEAKER) (test zvmg=456) 2.3 mg/dL 1.6-2.6 COMPREHENSIVE METABOLIC [id number] 07:11:00 Test Item Value Reference Range Comments TOTAL PROTEIN (BEAKER) 5.8 gm/dL 6.0-8.3 (test mhwo=606) ALBUMIN (BEAKER) (test 3.1 g/dL 3.5-5.0 degn=3095) ALKALINE PHOSPHATASE 141 U/L 40-150 (BEAKER) (test pnng=416) BILIRUBIN TOTAL (BEAKER) 1.1 mg/dL 0.2-1.2 (test kpre=419) SODIUM (BEAKER) (test 135 meq/L 136-145 nvxo=146) POTASSIUM (BEAKER) (test 3.7 meq/L 3.5-5.1 lpyn=480) CHLORIDE (BEAKER) (test 104 meq/L 98-107 wbfx=431) CO2 (BEAKER) (test 24 meq/L 22-29 oabd=785) BLOOD UREA NITROGEN 5 mg/dL 7-21 (BEAKER) (test ubpb=551) CREATININE (BEAKER) (test 0.39 mg/dL 0.57-1.25 iezk=493) GLUCOSE RANDOM (BEAKER) 114 mg/dL 70-105 (test ppdw=948) CALCIUM (BEAKER) (test 8.3 mg/dL 8.4-10.2 mcxc=109) AST (SGOT) (BEAKER) (test 354 U/L 5-34 xikh=529) ALT (SGPT) (BEAKER) (test 188 U/L 6-55 ofhd=723) EGFR (BEAKER) (test 258 mL/min/1.73 sq ESTIMATED GFR IS NOT ghvh=6754) m ACCURATE CREATININE CLEARANCE IN PREDICTING GLOMERULAR FILTRATION RATE. ESTIMATED GFR IS NOT APPLICABLE FOR DIALYSIS PATIENTS. LACTIC ACID, [id number] 04:07:00 Test Item Value Reference Range Comments LACTATE BLOOD VENOUS (2) 0.8 mmol/L 0.5-2.2 Specimen slightly hemolyzed (BEAKER) (test lafi=1491) CBC W/PLT COUNT & AUTO [id number] 04:00:00 Test Item Value Reference Range Comments WHITE BLOOD CELL COUNT (BEAKER) (test vokp=576) 6.1 K/ L 3.5-10.5 RED BLOOD CELL COUNT (BEAKER) (test dqix=694) 3.87 M/ L 4.63-6.08 HEMOGLOBIN (BEAKER) (test ctjr=983) 13.3 GM/DL 13.7-17.5 HEMATOCRIT (BEAKER) (test plnq=478) 39.1 % 40.1-51.0 MEAN CORPUSCULAR VOLUME (BEAKER) (test qpin=883) 101.0 fL 79.0-92.2 MEAN CORPUSCULAR HEMOGLOBIN (BEAKER) (test 34.4 pg 25.7-32.2 nmmz=026) MEAN CORPUSCULAR HEMOGLOBIN CONC (BEAKER) (test 34.0 GM/DL 32.3-36.5 vcjs=806) RED CELL DISTRIBUTION WIDTH (BEAKER) (test 12.1 % 11.6-14.4 dkag=196) PLATELET COUNT (BEAKER) (test fhes=844) 105 K/CU MM 150-450 MEAN PLATELET VOLUME (BEAKER) (test mymi=693) 10.4 fL 9.4-12.4 NUCLEATED RED BLOOD CELLS (BEAKER) (test 0 /100 WBC 0-0 cuzv=118) NEUTROPHILS RELATIVE PERCENT (BEAKER) (test 74 % gmxu=358) LYMPHOCYTES RELATIVE PERCENT (BEAKER) (test 14 % lnez=230) MONOCYTES RELATIVE PERCENT (BEAKER) (test 10 % jzfp=710) EOSINOPHILS RELATIVE PERCENT (BEAKER) (test 1 % nely=664) BASOPHILS RELATIVE PERCENT (BEAKER) (test 1 % byol=723) NEUTROPHILS ABSOLUTE COUNT (BEAKER) (test 4.52 K/ L 1.78-5.38 zwcv=662) LYMPHOCYTES ABSOLUTE COUNT (BEAKER) (test 0.84 K/ L 1.32-3.57 acez=516) MONOCYTES ABSOLUTE COUNT (BEAKER) (test 0.62 K/ L 0.30-0.82 garv=023) EOSINOPHILS ABSOLUTE COUNT (BEAKER) (test 0.06 K/ L 0.04-0.54 tupk=024) BASOPHILS ABSOLUTE COUNT (BEAKER) (test 0.03 K/ L 0.01-0.08 atia=831) IMMATURE GRANULOCYTES-RELATIVE PERCENT (BEAKER) 0 % 0-1 (test dkot=8896) [id number] 01:32:00 Test Item Value Reference Range Comments PROCALCITONIN (BEAKER) (test yskx=1160) 0.48 ng/mL <0.05 SEPSIS RISK (ng/mL)Low: 0.05-0.50Intermediate: 0.51-2.00High: & gt;=2.01BASIC METABOLIC [id number] 00:58:00 Test Item Value Reference Range Comments SODIUM (BEAKER) (test 135 meq/L 136-145 habx=001) POTASSIUM (BEAKER) (test 3.4 meq/L 3.5-5.1 trtp=929) CHLORIDE (BEAKER) (test 104 meq/L 98-107 xovq=630) CO2 (BEAKER) (test 22 meq/L 22-29 pavy=057) BLOOD UREA NITROGEN 7 mg/dL 7-21 (BEAKER) (test pkcz=204) CREATININE (BEAKER) (test 0.55 mg/dL 0.57-1.25 lisp=698) GLUCOSE RANDOM (BEAKER) 113 mg/dL 70-105 (test lihc=511) CALCIUM (BEAKER) (test 8.4 mg/dL 8.4-10.2 lfzn=901) EGFR (BEAKER) (test 174 mL/min/1.73 sq m ESTIMATED GFR IS NOT zhvl=9047) ACCURATE CREATININE CLEARANCE IN PREDICTING GLOMERULAR FILTRATION RATE. ESTIMATED GFR IS NOT APPLICABLE FOR DIALYSIS PATIENTS. [id number] 00:57:00 Test Item Value Reference Range Comments MAGNESIUM (BEAKER) (test cvdq=069) 1.5 mg/dL 1.6-2.6 LACTIC ACID, [id number] 00:37:00 Test Item Value Reference Range Comments LACTATE BLOOD VENOUS (2) 0.7 mmol/L 0.5-2.2 Specimen moderately hemolyzed (BEAKER) (test xmna=0595) POCT-GLUCOSE [id number] 00:25:00 Test Item Value Reference Range Comments POC-GLUCOSE METER (BEAKER) 101 mg/dL 70-110 TESTED AT [address] (test wloy=0679) [facility] [address] POCT-GLUCOSE [id number] 18:32:00 Test Item Value Reference Range Comments POC-GLUCOSE METER (BEAKER) 76 mg/dL 70-110 TESTED AT [address] (test upju=1011) [place] [id number] 15:15:00 Test Item Value Reference Range Comments POTASSIUM (BEAKER) (test ffnt=512) 3.4 meq/L 3.5-5.1 [id number] 15:15:00 Test Item Value Reference Range Comments MAGNESIUM (BEAKER) (test wzhk=145) 2.1 mg/dL 1.6-2.6 CT, [id number] 12:38:00FINAL REPORT CT abdomen with and without [...] underlying colitis cannot be excluded. Signed : Junito Gómez MDR[facility] Verified Date/Time: 09/29/2018 12:38:07 Reading Location : [facility] [id number] Ortho Consult Reading Room POCT-GLUCOSE [id number] 11:49:00 Test Item Value Reference Range Comments POC-GLUCOSE METER (BEAKER) 83 mg/dL 70-[address] [facility] [address] [facility] (test dryd=6222) [facility] [address] [id number] 10:49:00 Test Item Value Reference Range Comments TRIGLYCERIDES (BEAKER) (test 71 mg/dL Specimen slightly hemolyzed zlfe=460) TRIGLYCERIDE REFERENCE RANGELow Risk <150Borderline Risk 150-199High Risk 200-499Very High Risk>=[id number] 05:09:00 Test Item Value Reference Range Comments LIPASE (BEAKER) (test dasw=698) > U/L 8-78 [id number] 04:35:00 Test Item Value Reference Range Comments MAGNESIUM (BEAKER) (test 1.6 mg/dL 1.6-2.6 Specimen slightly hemolyzed uqtp=744) [id number] 04:35:00 Test Item Value Reference Range Comments PHOSPHORUS (BEAKER) (test 3.2 mg/dL 2.3-4.7 Specimen slightly hemolyzed cqwt=755) COMPREHENSIVE METABOLIC [id number] 04:35:00 Test Item Value Reference Range Comments TOTAL PROTEIN (BEAKER) 6.8 gm/dL 6.0-8.3 Specimen slightly (test oguh=279) hemolyzed ALBUMIN (BEAKER) (test 3.8 g/dL 3.5-5.0 Specimen slightly hbmg=2542) hemolyzed ALKALINE PHOSPHATASE 130 U/L 40-150 (BEAKER) (test sixn=614) BILIRUBIN TOTAL (BEAKER) 1.7 mg/dL 0.2-1.2 Specimen slightly (test iyam=131) hemolyzed SODIUM (BEAKER) (test 138 meq/L 136-145 wkkb=303) POTASSIUM (BEAKER) (test 3.7 meq/L 3.5-5.1 Specimen slightly cyzz=156) hemolyzed CHLORIDE (BEAKER) (test 103 meq/L 98-107 ssgl=402) CO2 (BEAKER) (test 17 meq/L 22-29 vmyc=205) BLOOD UREA NITROGEN 9 mg/dL 7-21 (BEAKER) (test zmco=524) CREATININE (BEAKER) (test 0.65 mg/dL 0.57-1.25 Specimen slightly bgth=656) hemolyzed GLUCOSE RANDOM (BEAKER) 103 mg/dL 70-105 (test hytd=721) CALCIUM (BEAKER) (test 8.7 mg/dL 8.4-10.2 nokh=746) AST (SGOT) (BEAKER) (test 151 U/L 5-34 Specimen slightly lzsn=068) hemolyzed ALT (SGPT) (BEAKER) (test 143 U/L 6-55 Specimen slightly nswy=518) hemolyzed EGFR (BEAKER) (test 143 mL/min/1.73 sq ESTIMATED GFR IS NOT xmvx=2329) m ACCURATE CREATININE CLEARANCE IN PREDICTING GLOMERULAR FILTRATION RATE. ESTIMATED GFR IS NOT APPLICABLE FOR DIALYSIS PATIENTS. PROTHROMBIN [id number] 04:34:00 Test Item Value Reference Range Comments PROTIME (BEAKER) (test uloq=543) 14.6 seconds 11.7-14.7 INR (BEAKER) (test otfb=316) 1.1 <=5.9 RECOMMENDED COUMADIN/WARFARIN INR THERAPY RANGESSTANDARD DOSE: 2.0 - 3.0 Includes: PROPHYLAXIS forvenous thrombosis, systemic embolization; TREATMENT for venous thrombosis and/or pulmonary embolus.HIGH RISK: Target INR is 2.5-3.5 for patients with mechanical heart valves.CBC W/PLT COUNT & AUTO [id number] 04:09:00 Test Item Value Reference Range Comments WHITE BLOOD CELL COUNT (BEAKER) (test epgm=427) 6.2 K/ L 3.5-10.5 RED BLOOD CELL COUNT (BEAKER) (test kqze=680) 4.33 M/ L 4.63-6.08 HEMOGLOBIN (BEAKER) (test zqtr=976) 15.0 GM/DL 13.7-17.5 HEMATOCRIT (BEAKER) (test iips=175) 43.2 % 40.1-51.0 MEAN CORPUSCULAR VOLUME (BEAKER) (test uvsy=146) 99.8 fL 79.0-92.2 MEAN CORPUSCULAR HEMOGLOBIN (BEAKER) (test 34.6 pg 25.7-32.2 jsas=096) MEAN CORPUSCULAR HEMOGLOBIN CONC (BEAKER) (test 34.7 GM/DL 32.3-36.5 iyay=129) RED CELL DISTRIBUTION WIDTH (BEAKER) (test 12.4 % 11.6-14.4 twcl=953) PLATELET COUNT (BEAKER) (test akig=234) 160 K/CU MM 150-450 MEAN PLATELET VOLUME (BEAKER) (test lioj=213) 10.4 fL 9.4-12.4 NUCLEATED RED BLOOD CELLS (BEAKER) (test 0 /100 WBC 0-0 utbi=009) NEUTROPHILS RELATIVE PERCENT (BEAKER) (test 81 % xbip=737) LYMPHOCYTES RELATIVE PERCENT (BEAKER) (test 7 % gysd=184) MONOCYTES RELATIVE PERCENT (BEAKER) (test 10 % nfzb=225) EOSINOPHILS RELATIVE PERCENT (BEAKER) (test 0 % ckiv=189) BASOPHILS RELATIVE PERCENT (BEAKER) (test 1 % oepz=503) NEUTROPHILS ABSOLUTE COUNT (BEAKER) (test 5.01 K/ L 1.78-5.38 fdlc=610) LYMPHOCYTES ABSOLUTE COUNT (BEAKER) (test 0.44 K/ L 1.32-3.57 ukpm=094) MONOCYTES ABSOLUTE COUNT (BEAKER) (test 0.62 K/ L 0.30-0.82 atpj=093) EOSINOPHILS ABSOLUTE COUNT (BEAKER) (test 0.01 K/ L 0.04-0.54 dgfb=634) BASOPHILS ABSOLUTE COUNT (BEAKER) (test 0.03 K/ L 0.01-0.08 wltv=212) IMMATURE GRANULOCYTES-RELATIVE PERCENT (BEAKER) 1 % 0-1 (test qiak=6833)
[2019-02-12 05:42] LABS: ALT/SGPT 72 U/L (12-78); AST/SGOT 197 U/L (15-37); Albumin 2.4 g/dL (3.4-5.0); Alkaline Phosphatase 552 U/L (45-117); BUN Blood Urea Nitrogen 7 mg/dL (7-18); Bicarbonate 19 mmol/L (21-32); Bilirubin Direct 2.1 mg/dL (0-0.2); Bilirubin Total 2.6 mg/dL (0.2-1.0); Glucose Level 119 mg/dL (74-106); NT PRO-BNP 426 pg/mL (<125); Protein, Total 6.2 g/dL (6.4-8.2); Sodium Level 141 mmol/L (136-145); Troponin (Emerg Dept Use Only) < 0.02 ng/mL (0.0-0.045)
[2019-02-12 05:44] LABS: Magnesium 1.1 mg/dL (1.8-2.4); Potassium 2.7 mmol/L (3.5-5.1)
[2019-02-12] MEDS ORDERED: NA CHLORIDE 0.9% 1,000 ML ONE ×3 (05:57→09:30)
[2019-02-12] MEDS ORDERED: MAGNESIUM OXIDE 400 MG TAB ONE (06:23)
[2019-02-12] MEDS ORDERED: KCL 20 MEQ/100 mL IVPB 20 MEQ/100 ML BAG IV ONE ×2 (06:24→06:31)
[2019-02-12 06:26] LABS: Absolute Lymphocytes (CBC) 0.5 K/uL (0.7-4.9); Basophils % 0.2 % (0-1.3); Hematocrit 18.2 % (39.6-49.0); Lymphocytes % 9.6 % (15.3-44.8); MPV 8.4 fL (7.6-11.3); RBC Red Blood Cell Count 1.67 M/uL (4.33-5.43)
[2019-02-12 06:28] LABS: Protime INR 2.07
[2019-02-12 07:31] LABS: Anisocytosis 1+; Blood Morphology Comment NOTED (NOT SEEN); Macrocytosis 1+; Platelet Estimate ADEQ; Polychromasia 1+
--- NOTE | 2019-02-12 07:33 | ER ---
Nurse's Notes [facility] Name: Jonathan Gutierrez Age: 33 yrs Sex: Male : 1985 Arrival Date: 02/12/2019 Time: 05:06 Bed 4 Private MD: Diagnosis: Alcohol dependence with withdrawal delirium;Anemia in chronic diseases classified elsewhere;Hypokalemia;Hypomagnesemia Presentation: 02/12 05:07 Presenting complaint: EMS states: Pt's boss called the EMS stating that the pt was, tr5 "not acting himself". Transition of care: patient was not received from another setting of care. Onset of symptoms was February 12, 2019. Risk Assessment: Do you want to hurt yourself or someone else? Patient reports no desire to harm self or others. Initial Sepsis Screen: Does the patient meet any 2 criteria? No. Patient's initial sepsis screen is negative. Does the patient have a suspected source of infection? No. Patient's initial sepsis screen is negative. Care prior to arrival: None. 05:07 Method Of Arrival: EMS: [facility] tr5 05:07 Acuity: NEO 3 tr5 Triage Assessment: 05:08 General: Appears in no apparent distress. Behavior is calm, cooperative, appropriate tr5 for age. Pain: Denies pain. EENT: No signs and/or symptoms were reported regarding the EENT system. Neuro: Level of Consciousness is awake, alert, obeys commands, Oriented to person, place, time, Boilers And Pressure Vessels Inspector are equal bilaterally Moves all extremities. Gait is steady, Speech is normal. Cardiovascular: Heart tones present Bruits absent Capillary refill < 3 seconds Pulses are all present. Edema is absent. Respiratory: Airway is patent Trachea midline Respiratory effort is even, unlabored, Respiratory pattern is regular, symmetrical, Breath sounds are clear bilaterally. GI: No signs and/or symptoms were reported involving the gastrointestinal system. : No signs and/or symptoms were reported regarding the genitourinary system. Derm: No signs and/or symptoms reported regarding the dermatologic system. Musculoskeletal: No signs and/or symptoms reported regarding the musculoskeletal system. Capillary refill < 3 seconds, Range of motion: intact in all extremities. Historical: - Allergies: 05:08 Morphine; hallucinations; tr5 - PMHx: 05:08 Hypertension; tr5 07:57 Pancreatitis; liver "spot"; ETOH abuse; sv - Immunization history:: Adult Immunizations up to date. - Social history:: Smoking status: Patient uses tobacco products, smokes one pack cigarettes per day. - Ebola Screening: : No symptoms or risks identified at this time. Screenin:11 Abuse screen: Denies threats or abuse. Nutritional screening: No deficits noted. tr5 Tuberculosis screening: No symptoms or risk factors identified. Fall Risk None identified. Total Schmidt Fall Scale indicates No Risk (0-24 pts). Assessment: 05:11 Reassessment: See triage note. tr5 06:21 Reassessment: Patient and/or family updated on plan of care and expected duration. Pain tr5 level reassessed. Patient states symptoms have not improved. 07:10 General: Appears in no apparent distress. comfortable, slender, Behavior is sv cooperative, appropriate for age. General: Reports last alcoholic drink was 2 days ago. Pt states that he drinks liquor about 4 times a week. Pain: Complains of pain in abdomen Pain currently is 5 out of 10 on a pain scale. Neuro: Level of Consciousness is awake, alert, obeys commands, Oriented to person, place, time, situation, Moves all extremities. Full function Speech is normal, Pt is hallucinating, stating that he was talking to his mother and brother.. Cardiovascular: Patient's skin is warm and dry. Pulses are 3+ in right radial artery and left radial artery Rhythm is sinus tachycardia Chest pain is denied. Respiratory: Airway is patent Respiratory effort is even, unlabored, Respiratory pattern is regular, symmetrical, Denies shortness of breath. EENT: Sclera/Cornea icertic. Derm: Skin is intact, Skin is icteric, jaundiced. Musculoskeletal: Range of motion: intact in all extremities. 08:00 Reassessment: Patient appears in no apparent distress at this time. No changes from sv previously documented assessment. Patient and/or family updated on plan of care and expected duration. Pain level reassessed. Patient is alert, oriented x 3, equal unlabored respirations, skin warm/dry/pink. 08:45 Reassessment: Patient appears in no apparent distress at this time. No changes from sv previously documented assessment. Patient and/or family updated on plan of care and expected duration. Pain level reassessed. Patient is alert, oriented x 3, equal unlabored respirations, skin warm/dry/pink. 08:55 Reassessment: 1st unit PRBCs started, see blood transfusion sheet. sv 09:30 Reassessment: Patient appears in no apparent distress at this time. No changes from sv previously documented assessment. Patient and/or family updated on plan of care and expected duration. Pain level reassessed. Patient is alert, oriented x 3, equal unlabored respirations, skin warm/dry/pink. 10:00 Reassessment: Patient appears in no apparent distress at this time. Patient and/or sv family updated on plan of care and expected duration. Pain level reassessed. Patient is alert, oriented x 3, equal unlabored respirations, skin warm/dry/pink. 10:30 Reassessment: 2nd unit of PRBCs started. sv 10:45 Reassessment: Report given to Eric from EMS. Blood checked off at bedside with Eric. sv 12:21 Reassessment: Report given to Artis HOLLAND at [facility] in the ICU. sv Vital Signs: 05:10 BP 144 / 107; Pulse 136; Resp 18; Temp 97.9(O); Pulse Ox 97% on R/A; Weight 45.36 kg; tr5 Height 5 ft. 11 in. (180.34 cm); 06:17 BP 124 / 86; Pulse 123; Resp 20; Pulse Ox 96% on R/A; Pain 0/10; aa1 07:00 BP 122 / 93; Pulse 111; Resp 16; Pulse Ox 100% ; sv 07:30 BP 112 / 83; Pulse 110 MON; Resp 18; Pulse Ox 99% on R/A; sv 08:45 BP 131 / 93; Pulse 121; Resp 18; Temp 98.3; Pulse Ox 100% on R/A; sv 09:25 BP 129 / 85; Pulse 116; Resp 18; Temp 98.2; Pulse Ox 100% on R/A; sv 10:15 BP 126 / 107; Pulse 110; Resp 21; Pulse Ox 98% on R/A; sv 10:30 BP 137 / 93; Pulse 117; Resp 21; Pulse Ox 100% on R/A; sv 10:45 BP 133 / 82; Pulse 100; Resp 18; Pulse Ox 100% on R/A; sv 05:10 Body Mass Index 13.95 (45.36 kg, 180.34 cm) tr5 07:30 Sinus tachycardia sv ED Course: 05:06 Patient arrived in ED. tw4 05:07 Tai Estes, RN is Primary Nurse. tr5 05:07 Justin Rowe MD is Attending Physician. tw4 05:08 Triage completed. tr5 05:10 Arm band placed on. tr5 05:11 Patient has correct armband on for positive identification. Placed in gown. Bed in low tr5 position. Call light in reach. teletypesetter monitor on. Pulse ox on. NIBP on. 05:15 Inserted saline lock: 20 gauge in right antecubital area, using aseptic technique. cc3 Blood collected. inserted by installation tech Melonie. 05:20 EKG done, by salvage engineering technician. tr5 05:25 X-ray completed. Portable x-ray completed in exam room. Patient tolerated procedure kw well. 05:26 XRAY Chest (1 view) In Process Unspecified. EDMS 05:45 Notified ED physician of a critical lab result(s). K 2.7 and Mg 1.1. tr5 06:10 Lab(s) recollected, by me, sent to lab. aa1 06:40 Notified ED physician of a critical lab result(s). Hgb of 6.4, Hct of 18.2. Dr Rowe bb notified. 07:11 Primary Nurse role handed off by Tai Estes, AMALIA sv 07:11 Ketty Graves, RN is Primary Nurse. sv 07:20 T\\T\\S collected, blood band applied to patient. sv 07:30 Inserted saline lock: 20 gauge in right wrist, using aseptic technique. Flushed right sv with 5 ml normal saline. 07:37 Consent for blood and/or blood product transfusion explained by staff, explained by sv physician, signed by patient. 08:13 Bb Add On Sent. sv 09:55 Occult Blood--Ancillary Sent. sv 10:56 No provider procedures requiring assistance completed. Patient transferred, IV remains sv in place. intact. Administered Medications: 05:39 Drug: NS 0.9% 1000 ml Route: IV; Rate: 1 bolus; Site: right antecubital; tr5 06:15 Drug: Potassium Chloride 40 mEq Route: IV; Rate: calculated rate; Site: right tr5 antecubital; 08:13 Follow up: Response: No adverse reaction; IV Status: Completed infusion; IV Intake: sv 200ml 06:16 Drug: Magnesium 400 mg Route: PO; tr5 07:10 Follow up: Response: No adverse reaction sv 07:15 Drug: Ativan 1 mg Route: IVP; Site: right antecubital; sv 07:30 Follow up: Response: No adverse reaction sv 08:32 Drug: Valium 10 mg Route: IVP; Site: right antecubital; sv 08:39 Follow up: Response: No adverse reaction sv 09:25 Drug: Valium 10 mg Route: IVP; Site: right antecubital; sv 09:52 Follow up: Response: No adverse reaction sv 09:25 Drug: NS 0.9% 1000 ml Route: IV; Rate: 1000 ml; Site: right antecubital; sv 10:30 Follow up: Response: No adverse reaction; IV Status: Completed infusion; IV Intake: sv 1000ml Point of Care Testing: Guaiac: 09:35 Stool Guaiac: Positive; Stool Hemoccult Control: Pass; sv Intake: 08:13 IV: 200ml; Total: 200ml. sv 10:30 IV: 1000ml; Total: 1200ml. sv Outcome: 07:32 ER care complete, transfer ordered by tw4 10:25 Transferred by [facility] to [facility], Transfer form completed. sv Note: Sydnee HOLLAND 10:25 Condition: stable 10:25 Instructed on the need for transfer. 10:57 Patient left the ED. sv Signatures: Dispatcher [employer] EDMS Ketty Graves RN AMALIA sv Annamaria Seals RN RN Kiki Mccullough RN Elly Ross Terrence, MD MD tw4 Malena Downey cc3 Tai Estes RN RN tr5 Corrections: (The following items were deleted from the chart) 07:04 05:10 BP 144 / 107; Pulse 136bpm; Resp 18bpm; Pulse Ox 97% RA; 45.36 kg; Height 5 ft. tr5 11 in.; BMI: 13.9; tr5 12:12 10:45 BP 133 / 82; Pulse 100bpm; Resp 26bpm; Pulse Ox 100% RA; sv sv 12:14 10:45 Reassessment: Report given to Eric from [facility]. sv sv
--- NOTE | 2019-02-12 07:33 | EDPHYS ---
Physician Documentation [facility] Name: Jonathan Gutierrez Age: 33 yrs Sex: Male : 1985 Arrival Date: 02/12/2019 Time: 05:06 Bed 4 Private MD: ED Physician Justin Rowe HPI: 02/12 05:36 This 33 yrs old Male presents to ER via EMS with complaints of General tw4 Weakness. 05:36 The patient presents with feeling faint, generalized weakness. Onset: The tw4 symptoms/episode began/occurred today. Context: occurred at home. Modifying factors: The symptoms are alleviated by nothing, the symptoms are aggravated by nothing. Associated signs and symptoms: The patient has no apparent associated signs or symptoms. The patient has not experienced similar symptoms in the past. Historical: - Allergies: 05:08 Morphine; hallucinations; tr5 - PMHx: 05:08 Hypertension; tr5 07:57 Pancreatitis; liver "spot"; ETOH abuse; sv - Immunization history:: Adult Immunizations up to date. - Social history:: Smoking status: Patient uses tobacco products, smokes one pack cigarettes per day. - Ebola Screening: : No symptoms or risks identified at this time. ROS: 05:36 Constitutional: Negative for fever, chills, and weight loss, Eyes: Negative for injury, tw4 pain, redness, and discharge, Cardiovascular: Negative for chest pain, palpitations, and edema, Respiratory: Negative for shortness of breath, cough, wheezing, and pleuritic chest pain, Abdomen/GI: Negative for abdominal pain, nausea, vomiting, diarrhea, and constipation, Back: Negative for injury and pain, Skin: Negative for injury, rash, and discoloration. 05:36 Neuro: Positive for weakness. 07:45 Abdomen/GI: Positive for black/tarry stool, rectal bleeding. tw4 Exam: 05:36 Constitutional: This is a well developed, well nourished patient who is awake, alert, tw4 and in no acute distress. Head/Face: Normocephalic, atraumatic. Chest/axilla: Normal chest wall appearance and motion. Nontender with no deformity. No lesions are appreciated. Cardiovascular: Regular rate and rhythm with a normal S1 and S2. No gallops, murmurs, or rubs. Normal PMI, no JVD. No pulse deficits. Respiratory: Lungs have equal breath sounds bilaterally, clear to auscultation and percussion. No rales, rhonchi or wheezes noted. No increased work of breathing, no retractions or nasal flaring. Abdomen/GI: Soft, non-tender, with normal bowel sounds. No distension or tympany. No guarding or rebound. No evidence of tenderness throughout. Back: No spinal tenderness. No costovertebral tenderness. Full range of motion. MS/ Extremity: Pulses equal, no cyanosis. Neurovascular intact. Full, normal range of motion. 05:36 Neuro: Orientation: is normal, Mentation: slow to respond, Memory: is normal, Cranial nerves: grossly normal. 07:33 Eyes: Conjunctiva: pale, bilaterally. tw4 Vital Signs: 05:10 BP 144 / 107; Pulse 136; Resp 18; Temp 97.9(O); Pulse Ox 97% on R/A; Weight 45.36 kg; tr5 Height 5 ft. 11 in. (180.34 cm); 06:17 BP 124 / 86; Pulse 123; Resp 20; Pulse Ox 96% on R/A; Pain 0/10; aa1 07:00 BP 122 / 93; Pulse 111; Resp 16; Pulse Ox 100% ; sv 07:30 BP 112 / 83; Pulse 110 MON; Resp 18; Pulse Ox 99% on R/A; sv 08:45 BP 131 / 93; Pulse 121; Resp 18; Temp 98.3; Pulse Ox 100% on R/A; sv 09:25 BP 129 / 85; Pulse 116; Resp 18; Temp 98.2; Pulse Ox 100% on R/A; sv 10:15 BP 126 / 107; Pulse 110; Resp 21; Pulse Ox 98% on R/A; sv 10:30 BP 137 / 93; Pulse 117; Resp 21; Pulse Ox 100% on R/A; sv 10:45 BP 133 / 82; Pulse 100; Resp 18; Pulse Ox 100% on R/A; sv 05:10 Body Mass Index 13.95 (45.36 kg, 180.34 cm) tr5 07:30 Sinus tachycardia sv MDM: 05:07 Patient medically screened. tw4 07:33 Differential diagnosis: cardiac arrhythmia, TIA. Data reviewed: vital signs, nurses tw4 notes. Data interpreted: Pulse oximetry: Interpretation: normal. Counseling: I had a detailed discussion with the patient and/or guardian regarding: the historical points, exam findings, and any diagnostic results supporting the discharge/admit diagnosis, lab results. Awaiting: transfer to another facility. ED course: D/W \\[id number] Dr Rome TRUONG at [facility] will see in consultation . ED course: Pt later admitted to heavy binge drinking and previous history pancreatitis and delirium tremens. 07:48 ED course: Will transfuse PRBC's and give Ativan for withdrawal symptoms. 02/12 05:08 Order name: Basic Metabolic Panel; Complete Time: 05:53 02/12 05:53 Interpretation: Normal except: K 2.7; CO2 19; GLUC 119. 02/12 05:08 Order name: CBC with Diff; Complete Time: 07:38 02/12 06:56 Interpretation: Normal except: RBC 1.67; HCT 18.2; MCV 109.4; MCH 38.3; HGB 6.4; CHECO% tw4 79.6; LYM% 9.6. 02/12 05:08 Order name: LFT's; Complete Time: 05:53 02/12 05:53 Interpretation: Normal except: AST 197; ALK 552; BILIT 2.6; BILID 2.1; TP 6.2; ALB 2.4; tw4 GLOB 3.8; A/G 0.6. 02/12 05:08 Order name: Magnesium; Complete Time: 05:53 02/12 05:53 Interpretation: Within normal limits. 02/12 05:08 Order name: NT PRO-BNP; Complete Time: 05:53 02/12 05:53 Interpretation: Normal except: NT PRO-BNP 426. 02/12 05:08 Order name: PT-INR; Complete Time: 06:55 02/12 06:56 Interpretation: Normal except: PT 23.7. 02/12 05:08 Order name: Troponin (emerg Dept Use Only); Complete Time: 05:54 02/12 05:54 Interpretation: Within normal limits: TROPED < 0.02. 02/12 05:08 Order name: Urine Drug Screen 02/12 07:01 Order name: Type And Screen 02/12 07:04 Order name: Bb Add On ss 02/12 07:31 Order name: Manual Differential; Complete Time: 07:38 EDMS 02/12 07:39 Order name: Lipase; Complete Time: 09:07 tw4 02/12 07:39 Order name: Amylase, Serum; Complete Time: 09:07 tw4 02/12 08:25 Order name: ABO/RH no charge; Complete Time: 09:07 EDMS 02/12 05:08 Order name: XRAY Chest (1 view); Complete Time: 09:07 tw4 02/12 05:08 Order name: EKG; Complete Time: 05:14 tw4 02/12 05:08 Order name: Cardiac monitoring; Complete Time: 05:12 tw4 02/12 05:08 Order name: EKG - Nurse/Tech; Complete Time: 05:21 tw4 02/12 05:08 Order name: IV Saline Lock; Complete Time: 05:12 tw4 02/12 05:08 Order name: Labs collected and sent; Complete Time: 05:12 tw4 02/12 08:27 Order name: Packed RBC Leukored EDLA 02/12 09:50 Order name: Urine Dipstick--Ancillary (enter results) bd 02/12 09:57 Order name: Occult Blood--Ancillary sv 02/12 05:08 Order name: O2 Per Protocol; Complete Time: 05:12 tw4 02/12 05:08 Order name: O2 Sat Monitoring; Complete Time: 05:12 tw4 EC:36 Rate is 130 beats/min. Rhythm is regular, Sinus tachycardia. QRS Rhodes is Normal. TN tw4 interval is normal. QRS interval is normal. QT interval is normal. T waves are Normal. No ST changes noted. Clinical impression: Sinus tachycardia. Interpreted by me. Reviewed by me. Administered Medications: 05:39 Drug: NS 0.9% 1000 ml Route: IV; Rate: 1 bolus; Site: right antecubital; tr5 06:15 Drug: Potassium Chloride 40 mEq Route: IV; Rate: calculated rate; Site: right tr5 antecubital; 08:13 Follow up: Response: No adverse reaction; IV Status: Completed infusion; IV Intake: sv 200ml 06:16 Drug: Magnesium 400 mg Route: PO; tr5 07:10 Follow up: Response: No adverse reaction sv 07:15 Drug: Ativan 1 mg Route: IVP; Site: right antecubital; sv 07:30 Follow up: Response: No adverse reaction sv 08:32 Drug: Valium 10 mg Route: IVP; Site: right antecubital; sv 08:39 Follow up: Response: No adverse reaction sv 09:25 Drug: Valium 10 mg Route: IVP; Site: right antecubital; sv 09:52 Follow up: Response: No adverse reaction sv 09:25 Drug: NS 0.9% 1000 ml Route: IV; Rate: 1000 ml; Site: right antecubital; sv 10:30 Follow up: Response: No adverse reaction; IV Status: Completed infusion; IV Intake: sv 1000ml Point of Care Testing: Guaiac: 09:35 Stool Guaiac: Positive; Stool Hemoccult Control: Pass; sv Disposition: 02/12/19 07:32 Transfer ordered to [facility]. Diagnosis are Alcohol dependence with withdrawal delirium, Anemia in chronic diseases classified elsewhere, Hypokalemia, Hypomagnesemia. - Reason for transfer: Higher level of care. - Accepting physician is Dr Harrison. - Condition is Serious. - Problem is chronic. - Symptoms are unchanged. Critical care time excluding procedures: 07:48 Critical care time: Bedside Care: 20 minutes, Consultation: 10 minutes, Family tw4 Intervention: 5 minutes. Total time: 35 minutes Signatures: Dispatcher [employer] Ketty Bishop, RN AMALIA sv Trenton Lubin MD MD rn Wadley, Terrence, MD MD tw4 Tai Estes RN RN tr5 Corrections: (The following items were deleted from the chart) 07:48 07:32 02/12/2019 07:32 Transfer ordered to [facility]. Diagnosis is tw4 Alcohol dependence with withdrawal delirium; Anemia in chronic diseases classified elsewhere; Hypokalemia; Hypomagnesemia. Reason for transfer: Higher level of care. Accepting physician is Dr Wei. Condition is Serious. Problem is chronic. Symptoms are unchanged. tw4 10:57 07:48 02/12/2019 07:32 Transfer ordered to [facility]. Diagnosis is sv Alcohol dependence with withdrawal delirium; Anemia in chronic diseases classified elsewhere; Hypokalemia; Hypomagnesemia. Reason for transfer: Higher level of care. Accepting physician is Dr Harrison. Condition is Serious. Problem is chronic. Symptoms are unchanged. tw4
[2019-02-12] MEDS ORDERED: LORazepam 2 MG/ML VIAL ONE (07:41)
[2019-02-12] MEDS ORDERED: NA CHLORIDE 0.9% 250 ML ONE ×2 (07:57→11:05)
--- NOTE | 2019-02-12 08:16 | RAD REPORT ---
EXAM DESCRIPTION: Claude Single View02/12/2019 5:28 am CLINICAL HISTORY: Chest pain COMPARISON: November 2018 FINDINGS: The lungs appear clear of acute infiltrate. The heart is normal size IMPRESSION: No acute abnormalities displayed
[2019-02-12 08:32] LABS: Amylase Level 129 U/L (25-115); Lipase 1597 U/L (73-393)
[2019-02-12] MEDS ORDERED: DIAZEPAM 10 MG/2 ML INJ SYRINGE ONE ×2 (08:51→09:30)
[2019-02-12 10:02] LABS: Barbiturates NEGATIVE (NEGATIVE); Benzodiazepines NEGATIVE (NEGATIVE); Cocaine NEGATIVE (NEGATIVE); METHAMPHETAM NEGATIVE (NEGATIVE); Methadone NEGATIVE (NEGATIVE); Opiates NEGATIVE (NEGATIVE); Phencyclidine NEGATIVE (NEGATIVE); THC Cannibis NEGATIVE (NEGATIVE)
[2019-02-12 10:31] LABS: Urine Blood 1+ (NEG); Urine Glucose NEGATIVE (NEG); Urine Protein 2+ (NEG); Urine pH 8.5 (5.0-7.0)
--- NOTE | 2019-02-12 10:48 | EKG ---
Test Date: 2019-02-12 Test Time: 05:24:13 Fishing Captain: BRUNILDA MEASUREMENT RESULTS: Intervals: Rate: 130 IN: 132 QRSD: 96 QT: 320 QTc: 470 [place]: P: 57 IN: 132 QRS: 63 T: 27 INTERPRETIVE STATEMENTS: Sinus tachycardia cannot rule out Anterior infarct, age undetermined Abnormal ECG Compared to ECG 12/10/2018 10:27:02 Possible Myocardial infarct finding now present Atrial abnormality no longer present Right-axis deviation no longer present Electronically Signed On 02-12-19 10:47:18 CDT by Siddharth De Leon
[2019-02-12 11:15] VITALS: TEMP 98.2
[2019-02-12 11:17] VITALS: O2SAT 100
[2019-02-12 11:18] VITALS: BP 133/82
== END 2019-02-12 10:57 | disposition short-term general hospital (02) ==
LOC: ER 05:05
DX: F10.231 Alcohol dependence with withdrawal delirium (principal); E87.6 Hypokalemia; E83.42 Hypomagnesemia; D63.8 Anemia in other chronic diseases classified elsewhere; Z88.5 Allergy status to narcotic agent; I10 Essential (primary) hypertension; F17.210 Nicotine dependence, cigarettes, uncomplicated
CPT/HCPCS: 36415; 71045; 80048; 80076; 80307; 81003; 82150; 83690; 83735; 83880; 84484; 85025; 85610; 86850; 86900; 86901; 93005; J3360; J7030; P9016

== ENCOUNTER 2019-02-18 20:02 | Inpatient (IN) | payer SELFPAY ==
--- OUTSIDE RECORDS SUMMARY | 2019-02-18 20:05 | XMS REPORT | Clinical Summary ---
:1985 Author Organization [facility] Address [address] [place] [address] Care Team Providers Name Role Phone Pcp, No Primary Care Provider Unavailable Allergies No Known Allergies Medications Medication Sig Dispensed Refills Start Date End Date Status thiamine 100 MG tablet Take 1 30 tablet 0 10/03/2018 Active tablet (100 0 mg total) by mouth daily. cyanocobalamin Take by 0 Active (VITAMIN B-12) 100 MCG mouth daily. tablet folic acid (FOLVITE) 1 Take 1 90 tablet 0 02/16/2019 Active MG tablet tablet (1 mg 0 total) by mouth daily. multivitamin Take 1 90 tablet 0 02/16/2019 Active (THERAGRAN) tablet tablet by 0 mouth daily. pantoprazole Take 1 180 tablet 0 02/15/2019 Active (PROTONIX) 40 MG tablet (40 9 tablet mg total) by mouth 2 (two) times daily for 90 days. chlordiazePOXIDE 10mg BID for 6 capsule 0 02/15/2019 Active (LIBRIUM) 10 MG 2 days and capsule then 10mg daily for 2 days and then stop. lisinopril Take 1 30 tablet 0 10/03/2018 (PRINIVIL,ZESTRIL) 20 tablet (20 9 MG tablet mg total) by mouth daily for 30 days. multivitamin Take 1 30 tablet 0 10/03/2018 (THERAGRAN) tablet tablet by 9 mouth daily for 30 days. folic acid (FOLVITE) 1 Take 1 30 tablet 0 10/03/2018 MG tablet tablet (1 mg 9 total) by mouth daily for 30 days. LORazepam (ATIVAN) 0.5 Take 1 30 tablet 0 10/02/2018 Discontinued MG tablet tablet (0.5 9 mg total) by mouth every 6 (six) hours as needed for Anxiety for up to 5 days. Max Daily Amount: 2 mg LORazepam (ATIVAN) 0.5 Take 1 5 tablet 0 10/02/2018 Discontinued MG tablet tablet (0.5 9 mg total) by mouth every 6 (six) hours as needed for Anxiety. Max Daily Amount: 2 mg lisinopril Take 15 mg 0 Discontinued (PRINIVIL,ZESTRIL) 20 by mouth. 9 MG tablet Active Problems Problem Noted Date Acute liver failure 02/14/2019 Anemia 02/12/2019 Pancreatitis, alcoholic, acute 02/12/2019 Acute blood loss anemia 02/12/2019 Hypokalemia 12/10/2018 Uncontrolled hypertension 10/02/2018 Alcohol withdrawal 09/29/2018 Resolved Problems Problem Noted Date Resolved Date Pneumothorax on left 12/10/2018 02/14/2019 CARLOS EDUARDO (acute kidney injury) 12/10/2018 02/14/2019 Alcohol withdrawal syndrome, with delirium 12/10/2018 02/14/2019 Alcohol withdrawal syndrome without complication 10/28/2018 02/14/2019 Electrolyte disturbance 10/28/2018 02/14/2019 Elevated LFTs 10/28/2018 02/14/2019 Alcohol-induced acute pancreatitis without infection or 09/29/2018 02/14/2019 necrosis Acute metabolic encephalopathy 09/29/2018 02/14/2019 Encounters Date Type Specialty Care Team Description 02/14/2019 Anesthesia Event Gastroenterology Ciara Francisco 02/14/2019 Surgery Gastroenterology Jared Peter UPPER ENDOSCOPY MD Grant 02/12/2019 [facility] Internal Liza Carlin Acute blood loss anemia; - Encounter Medicine MD Yasmeen Alcohol-induced acute pancreatitis without infection or necrosis; 02/15/2019 Valarie Cannon MD Acute metabolic encephalopathy; Clement Bonilla MD Alcohol withdrawal syndrome, with delirium (HCC); Electrolyte disturbance; Elevated LFTs; Alcoholic liver disease (HCC); Alcohol withdrawal syndrome without complication (HCC) 02/12/2019 Travel 12/10/2018 [facility] Internal Anna Leslee Alcohol withdrawal syndrome, with delirium (HCC); - Encounter Medicine MD Rashmi CARLOS EDUARDO (acute kidney injury) (HCC); 12/13/2018 Nubia, Alcohol withdrawal syndrome without complication ( HCC); Willy Li, Elevated LFTs; Pneumothorax on left; Brooke Shaw MD Uncomplicated alcohol dependence (HCC); Alcohol-induced acute pancreatitis without infection or necrosis 12/10/2018 Travel 10/27/2018 [facility] Internal BessFariba rankin Alcohol withdrawal syndrome without complication (HCC); - Encounter Medicine MD Genia Alcohol-induced acute pancreatitis without infection or necrosis; 11/01/2018 Maribeth Whalen, Elevated LFTs; Electrolyte disturbance; Misbah, Hallucination, visual; MD Sue Alcohol withdrawal delirium (HCC) 09/29/2018 [facility] Internal Valarie Cannon MD Alcohol withdrawal syndrome, with delirium (HCC); - Encounter Medicine Kaz, Alcohol-induced acute pancreatitis, unspecified complication status; 10/02/2018 Jonathan Acute metabolic encephalopathy; MD Natacha Colitis; Maribeth Whalen, Acute alcoholic hepatitis; Alcohol-induced acute pancreatitis without infection or necrosis; Electrolyte disturbance; Essential hypertension; Uncontrolled hypertension 09/29/2018 Orders Only General Internal Medicine after 02/17/2018 Family History Medical History Relation Name Comments [...] Vital Sign Reading Time Taken Blood Pressure 139/89 02/15/2019 10:45 AM CDT Pulse 112 02/15/2019 10:45 AM CDT Temperature 36.4 C (97.5 F) 02/15/2019 10:45 AM CDT Respiratory Rate 18 02/15/2019 10:45 AM CDT Oxygen Saturation 99% 02/15/2019 10:45 AM CDT Inhaled Oxygen Concentration - - Weight 67.7 kg (149 lb 4 oz) 02/13/2019 5:00 AM CDT Height 180.3 cm (5' 11") 02/12/2019 12:30 PM CDT Body Mass Index 20.82 02/13/2019 5:00 AM CDT Plan of Treatment Not on file Procedures Procedure Name Priority Date/Time Associated Comments Diagnosis REPORT OF PROCEDURE - 02/17/2019 12:40 ENDOSCOPY SCAN PM CDT RHYTHM STRIP - SCAN 02/17/2019 12:40 PM CDT POCT-GLUCOSE METER Routine 02/15/2019 7:19 Results for this AM CDT procedure are in the results section. CBC W/PLT COUNT & AUTO Routine 02/15/2019 4:38 Results for this DIFFERENTIAL AM CDT procedure are in the results section. COMPREHENSIVE Routine 02/15/2019 4:38 Results for this METABOLIC PANEL AM CDT procedure are in the results section. CBC W/PLT COUNT & AUTO Routine 02/15/2019 4:38 Results for this DIFFERENTIAL AM CDT procedure are in the results section. LIPASE Routine 02/15/2019 4:38 Results for this AM CDT procedure are in the results section. PHOSPHORUS Routine 02/15/2019 4:38 Results for this AM CDT procedure are in the results section. MAGNESIUM Routine 02/15/2019 4:38 Results for this AM CDT procedure are in the results section. HEPATIC FUNCTION PANEL Routine 02/15/2019 4:38 Results for this AM CDT procedure are in the results section. REPORT OF PROCEDURE - 02/14/2019 12:41 ENDOSCOPY URL PM CDT UPPER ENDOSCOPY 02/14/2019 11:00 Anemia, unspecified AM CDT type CBC W/PLT COUNT & AUTO Routine 02/14/2019 3:39 Results for this DIFFERENTIAL AM CDT procedure are in the results section. COMPREHENSIVE Routine 02/14/2019 3:39 Results for this METABOLIC PANEL AM CDT procedure are in the results section. CBC W/PLT COUNT & AUTO Routine 02/14/2019 3:39 Results for this DIFFERENTIAL AM CDT procedure are in the results section. LIPASE Routine 02/14/2019 3:39 Results for this AM CDT procedure are in the results section. PHOSPHORUS Routine 02/14/2019 3:39 Results for this AM CDT procedure are in the results section. MAGNESIUM Routine 02/14/2019 3:39 Results for this AM CDT procedure are in the results section. HEPATIC FUNCTION PANEL Routine 02/14/2019 3:39 Results for this AM CDT procedure are in the results section. HEMOGLOBIN AND CRYSTAL 02/14/2019 3:39 Results for this HEMATOCRIT AM CDT procedure are in the results section. TRANSFUSION SERVICE 02/13/2019 5:52 REPORT - SCAN PM CDT HEMOGLOBIN AND CRYSTAL 02/13/2019 11:32 Results for this HEMATOCRIT AM CDT procedure are in the results section. LIPASE STAT 02/13/2019 4:38 Results for this AM CDT procedure are in the results section. HEPATIC FUNCTION PANEL Routine 02/13/2019 4:38 Results for this AM CDT procedure are in the results section. CBC (HEMOGRAM ONLY) Routine 02/13/2019 4:35 Results for this AM CDT procedure are in the results section. PHOSPHORUS CRYSTAL 02/13/2019 12:51 Results for this AM CDT procedure are in the results section. MAGNESIUM CRYSTAL 02/13/2019 12:51 Results for this AM CDT procedure are in the results section. BASIC METABOLIC PANEL CRYSTAL 02/13/2019 12:51 Results for this (7) AM CDT procedure are in the results section. HEMOGLOBIN AND CRYSTAL 02/13/2019 12:51 Results for this HEMATOCRIT AM CDT procedure are in the results section. POCT-GLUCOSE METER Routine 02/12/2019 8:53 Results for this PM CDT procedure are in the results section. ABORH, MANUAL STAT 02/12/2019 3:42 Results for this PM CDT procedure are in the results section. TYPE AND SCREEN, STAT 02/12/2019 1:56 Results for this AUTOMATED PM CDT procedure are in the results section. ETHANOL STAT 02/12/2019 1:56 Results for this PM CDT procedure are in the results section. AMYLASE STAT 02/12/2019 1:55 Results for this PM CDT procedure are in the results section. LIPASE STAT 02/12/2019 1:55 Results for this PM CDT procedure are in the results section. PHOSPHORUS STAT 02/12/2019 1:55 Results for this PM CDT procedure are in the results section. MAGNESIUM STAT 02/12/2019 1:55 Results for this PM CDT procedure are in the results section. AMMONIA STAT 02/12/2019 1:55 Results for this PM CDT procedure are in the results section. D-DIMER STAT 02/12/2019 1:55 Results for this PM CDT procedure are in the results section. FIBRINOGEN STAT 02/12/2019 1:55 Results for this PM CDT procedure are in the results section. PT/APTT STAT 02/12/2019 1:55 Results for this PM CDT procedure are in the results section. LACTIC ACID, VENOUS STAT 02/12/2019 1:55 Results for this PM CDT procedure are in the results section. LACTATE DEHYDROGENASE STAT 02/12/2019 1:55 Results for this (LDH) PM CDT procedure are in the results section. COMPREHENSIVE STAT 02/12/2019 1:55 Results for this METABOLIC PANEL PM CDT procedure are in the results section. CBC (HEMOGRAM ONLY) STAT 02/12/2019 1:55 Results for this PM CDT procedure are in the results section. RHYTHM STRIP - SCAN 12/16/2018 2:41 PM [...] 326 ms QTC Calculation(Bazett) 523 ms P Sawyer 60 degrees R Sawyer 81 degrees T Sawyer 13 degrees Sinus tachycardia Cannot rule out Anterior infarct , age undetermined T wave abnormality, consider inferolateral ischemia Abnormal ECG No previous ECGs available ECG 12-LEAD Routine 09/29/2018 3:45 AM CDT after 02/17/2018 Results EKG-SCANNED (02/17/2019 12:40 PM CDT)Only the most recent of2 resultswithin the time period is included. Narrative Performed At RHYTHM STRIP - SCAN (02/17/2019 12:40 PM CDT)Only the most recent of4 resultswithin the time period is included. Narrative Performed At POC-Glucose meter (02/15/2019 7:19 AM CDT)Only the most recent of10 resultswithin the time period is included. POC-Glucose Meter 90Comment: TESTED AT 70 - 110 mg/dL [facility] [address] [facility] [id number] Specimen Blood Performing Organization Address City/State/Zipcode Phone Number [address] [phone] CENTER CBC with platelet count + automated diff (02/15/2019 4:38 AM CDT)Only the most recent of12 resultswithin the time period is included. WBC 4.5 3.5 - 10.5 K/L [facility] RBC 2.76 (L) 4.63 - 6.08 M/L [facility] Hemoglobin 9.2 (L) 13.7 - 17.5 GM/DL [facility] Hematocrit 29.2 (L) 40.1 - 51.0 % [facility] MCV 105.8 (H) 79.0 - 92.2 fL [facility] MCH 33.3 (H) 25.7 - 32.2 pg [facility] MCHC 31.5 (L) 32.3 - 36.5 GM/DL [facility] RDW 21.9 (H) 11.6 - 14.4 % [facility] Platelets 150 150 - 450 K/CU MM [facility] MPV 10.5 9.4 - 12.4 fL [facility] nRBC 0 0 - 0 /100 WBC [facility] % Neutros 65 % [facility] % Lymphs 17 % [facility] % Monos 13 % [facility] % Eos 2 % [facility] % Baso 1 % [facility] # Neutros 2.91 1.78 - 5.38 K/L [facility] # Lymphs 0.78 (L) 1.32 - 3.57 K/L [facility] # Monos 0.59 0.30 - 0.82 K/L [facility] # Eos 0.11 0.04 - 0.54 K/L [facility] # Baso 0.05 0.01 - 0.08 K/L [facility] Immature 2 (H) 0 - 1 % [facility] Granulocytes-[facility] CENTER Specimen Blood Performing Organization Address City/[facility] Phone Number [address] [address] CENTER Phosphorus (02/15/2019 4:38 AM CDT)Only the most recent of11 resultswithin the time period is included. Phosphorus 2.4 2.3 - 4.7 mg/dL [facility] Specimen Blood Performing Organization Address City/[facility] Phone Number [address] [address] CENTER Magnesium (02/15/2019 4:38 AM CDT)Only the most recent of14 resultswithin the time period is included. Magnesium 1.8 1.6 - 2.6 mg/dL [facility] Specimen Blood Performing Organization Address City/[facility] Phone Number [address] [address] [phone] CENTER Lipase (02/15/2019 4:38 AM CDT)Only the most recent of5 resultswithin the time period is included. Lipase 231 (H) 8 - 78 U/L [facility] Specimen Blood Performing Organization Address City/State/Zipcode Phone Number [facility] [address] [place] [phone] [place] Hepatic function panel (02/15/2019 4:38 AM CDT)Only the most recent of3 resultswithin the time period is included. Protein, Total 5.7 (L) 6.0 - 8.3 gm/dL [facility] Albumin 2.5 (L) 3.5 - 5.0 g/dL [facility] Total Bilirubin 1.7 (H) 0.2 - 1.2 mg/dL [facility] Bilirubin, Direct 1.3 (H) 0.1 - 0.5 mg/dL [facility] Alkaline Phosphatase 411 (H) 40 - 150 U/L [facility] AST 173 (H) 5 - 34 U/L [facility] ALT 53 6 - 55 U/L [facility] Specimen Blood Performing Organization Address City/State/Zipcode Phone Number [facility] [address] [place] [phone] [place] Comprehensive metabolic panel (02/15/2019 4:38 AM CDT)Only the most recent of13 resultswithin the time period is included. Protein, Total 5.7 (L) 6.0 - 8.3 gm/dL [facility] Albumin 2.5 (L) 3.5 - 5.0 g/dL [facility] Alkaline Phosphatase 411 (H) 40 - 150 U/L [facility] Total Bilirubin 1.7 (H) 0.2 - 1.2 mg/dL [facility] Sodium 139 136 - 145 meq/L [facility] Potassium 3.1 (L) 3.5 - 5.1 meq/L [facility] Chloride 105 98 - 107 meq/L [facility] CO2 24 22 - 29 meq/L [facility] BUN 3 (L) 7 - 21 mg/dL [facility] Creatinine 0.61 0.57 - 1.25 mg/dL [facility] Glucose 95 70 - 105 mg/dL [facility] Calcium 6.8 (L) 8.4 - 10.2 mg/dL [facility] AST 173 (H) 5 - 34 U/L [facility] ALT 53 6 - 55 U/L [facility] EGFR 153Comment: ESTIMATED mL/min/1.73 sq m [facility] GFR IS NOT ACCURATE [facility] CREATININE CLEARANCE IN PREDICTING GLOMERULAR FILTRATION RATE. ESTIMATED GFR IS NOT APPLICABLE FOR DIALYSIS PATIENTS. Specimen Blood Performing Organization Address City/State/Zipcode Phone Number [address] [address] [place] REPORT OF PROCEDURE - ENDOSCOPY URL (02/14/2019 12:41 PM CDT) Narrative Performed At Hemoglobin and hematocrit (02/14/2019 3:39 AM CDT)Only the most recent of3 resultswithin the time period is included. Hemoglobin 9.4 (L) 13.7 - 17.5 GM/DL [facility] Hematocrit 28.9 (L) 40.1 - 51.0 % [facility] Specimen Blood Performing Organization Address City/State/Zipcode Phone Number [place] [phone] [place] [address] [phone] [place] TRANSFUSION SERVICE REPORT - SCAN (02/13/2019 5:52 PM CDT) Narrative Performed At CBC (Hemogram only) (02/13/2019 4:35 AM CDT)Only the most recent of2 resultswithin the time period is included. WBC 4.8 3.5 - 10.5 K/L [facility] RBC 2.41 (L) 4.63 - 6.08 M/L [facility] Hemoglobin 8.1 (L) 13.7 - 17.5 GM/DL [facility] Hematocrit 24.1 (L) 40.1 - 51.0 % [facility] MCV 100.0 (H) 79.0 - 92.2 fL [facility] MCH 33.6 (H) 25.7 - 32.2 pg [facility] MCHC 33.6 32.3 - 36.5 GM/DL [facility] RDW 22.4 (H) 11.6 - 14.4 % [facility] Platelets 135 (L) 150 - 450 K/CU MM [facility] MPV 10.0 9.4 - 12.4 fL [facility] nRBC 1 (H) 0 - 0 /100 WBC [facility] Specimen Blood Performing Organization Address City/State/Zipcode Phone Number [facility] [address] [place] [address] [phone] CENTER Basic Metabolic Panel (02/13/2019 12:51 AM CDT)Only the most recent of5 resultswithin the time period is included. Sodium 137 136 - 145 meq/L [facility] Potassium 3.1 (L) 3.5 - 5.1 meq/L [facility] Chloride 104 98 - 107 meq/L [facility] CO2 24 22 - 29 meq/L [facility] BUN 3 (L) 7 - 21 mg/dL [facility] Creatinine 0.50 (L) 0.57 - 1.25 mg/dL [facility] Glucose 124 (H) 70 - 105 mg/dL [facility] Calcium 6.5 (L) 8.4 - 10.2 mg/dL [facility] EGFR 193Comment: ESTIMATED GFR IS mL/min/1.73 sq m [facility] NOT ACCURATE [facility] CLEARANCE IN PREDICTING GLOMERULAR FILTRATION RATE. ESTIMATED GFR IS NOT APPLICABLE FOR DIALYSIS PATIENTS. Specimen Blood Performing Organization Address City/[facility] Cent[facility] Phone Number [address] [phone] CENTER ABORH, manual (02/12/2019 3:42 PM CDT) ABO Grouping B [facility] Rh Factor POS [facility] Specimen Blood Performing Organization Address [facility] Cent[facility] Phone Number [address] [address] [phone] Type and screen, automated (02/12/2019 1:56 PM CDT) ABO/RH AUTOMATED (BEAKER) B POSITIVE [facility] Ab Scrn NEGATIVE [facility] Specimen Blood Performing Organization Address [facility] Cent[facility] Phone Number [address] [address] [phone] Ethanol (02/12/2019 1:56 PM CDT) Ethanol Lvl <10 <=10 mg/dL [facility] Specimen Blood Performing Organization Address [facility] Phone Number [address] [phone] CENTER PT/aPTT (02/12/2019 1:55 PM CDT) Protime 17.8 (H) 11.9 - 14.2 seconds [facility] INR 1.6 <=5.9 [facility] PTT 34.9 22.5 - 36.0 seconds [facility] Specimen Blood Narrative Performed At Effective 12/11/2018: PT Reference Range [facility] Change New: 11.9-14.2Previous: 11.7-14.7 RECOMMENDED COUMADIN/WARFARIN INR THERAPY RANGES STANDARD DOSE: 2.0-3.0Includes: PROPHYLAXIS for venous thrombosis, systemic embolization; TREATMENT for venous thrombosis and/or pulmonary embolus. HIGH RISK: Target INR is 2.5-3.5 for patients wiht mechanical heart valves. Performing Organization Address City/[facility] Phone Number [address] [phone] CENTER Lactic acid, venous (02/12/2019 1:55 PM CDT)Only the most recent of4 resultswithin the time period is included. Lactate, Venous 1.5 0.5 - 2.2 mmol/L [facility] Specimen Blood Performing Organization Address [facility] Phone Number [address] [address] CENTER Fibrinogen (02/12/2019 1:55 PM CDT) Fibrinogen 304 225 - 434 mg/dl [facility] Specimen Blood Performing Organization Address [facility] Phone Number [address] [address] CENTER D-dimer (02/12/2019 1:55 PM CDT) D-Dimer, Quant 4.23 (H) <0.50 MG/L FEU [facility] Specimen Blood Narrative Performed At Intended Use: The D-Dimer Assay can be used [facility] to aid in the diagnosis of Deep Vein Thrombosis (DVT) and Pulmonary Embolism Disease (PED). In patients with low pre-test probability, various studies concerning STA Liatest D-dimer test have reported that with a cutoff value of 0.50 MG/L FEU, the Negative Predictive Value (NPV) regarding the exclusion of thrombosis is within 95-100% range. Performing Organization Address City/[facility]/Zipcode Phone Number [address] [phone] CENTER Lactate dehydrogenase (LDH) (02/12/2019 1:55 PM CDT) LDH 572 (H) 125 - 220 U/L [facility] Specimen Blood Performing Organization Address City/[facility] Cent[facility]ode Phone Number [address] [address] CENTER Amylase (02/12/2019 1:55 PM CDT) Amylase 160 (H) 25 - 125 U/L [facility] Specimen Blood Narrative Performed At Specimen slightly icteric [facility] Performing Organization Address [facility] Phone Number [address] [phone] CENTER Ammonia (02/12/2019 1:55 PM CDT) Ammonia 50 18 - 72 mol/L [facility] Specimen Blood Performing Organization Address [facility] Phone Number [address] [address] [place] MR abdomen without IV contrast MRCP (12/12/2018 12:17 PM CDT) Specimen Narrative Performed At FINAL REPORT [facility] MRCP, MRI of abdomen without contrast Clinical [...] MD Report Verified Date/Time:12/12/2018 13:31:00 Reading Location: [address] Body Reading Room Procedure Note Interface, [...] Report Verified Date/Time: 12/12/2018 13:31:00 Reading Location: [facility] [id number] CT Body Reading Room Performing Organization Address City/State/Zipcode Phone Number [employer] [place] esoph swallow funct with cine video (12/11/2018 10:40 AM CDT) Specimen Narrative Performed At FINAL REPORT [employer] INDICATION: Pneumomediastinum. Evaluate for esophageal perforation. COMPARISON: [...] MD Report Verified Date/Time:12/11/2018 12:02:17 Reading Location: [facility] [id number] Ortho Consult Reading Room Procedure Note [...] Report Verified Date/Time: 12/11/2018 12:02:17 Reading Location: [facility] [id number] Ortho Consult Reading Room Performing Organization Address City/State/[facility] Cent[facility]ode Phone Number GE [facility] Prothrombin time/INR (12/10/2018 6:30 PM CDT)Only the most recent of4 resultswithin the time period is included. Protime 15.8 (H) 11.7 - 14.7 seconds [facility] INR 1.3 <=5.9 [facility] Specimen Blood Narrative Performed At RECOMMENDED COUMADIN/WARFARIN INR THERAPY [facility] RANGES STANDARD DOSE: 2.0 - 3.0 Includes: PROPHYLAXIS for venous thrombosis, systemic embolization; TREATMENT for venous thrombosis and/or pulmonary embolus. HIGH RISK: Target INR is 2.5-3.5 for patients with mechanical heart valves. Performing Organization Address City/State/Zipcode Phone Number [address] [address] CENTER XR chest 1 view portable / bedside (12/10/2018 7:15 AM CDT)Only the most recent of2 resultswithin the time period is included. Specimen Narrative Performed At FINAL REPORT GE [facility]IS History: Outside or presumptive diagnosis of pneumomediastinum. [...] MD Report Verified Date/Time:12/10/2018 20:13:39 Reading Location: [address] Reading Room Procedure Note Interface, External [...] Report Verified Date/Time: 12/10/2018 20:13:39 Reading Location: [address] Reading Room Performing Organization Address City/State/Zipcode Phone Number [facility] US abdominal with doppler (10/31/2018 9:52 AM CDT) Specimen Narrative Performed At FINAL REPORT [facility] Abdominal Doppler Ultrasound Clinical Diagnosis: Portal hypertension [...] MD Report Verified Date/Time:10/31/2018 10:43:58 Reading Location: [address] Ultrasound Reading Room Procedure Note Interface, [...] Report Verified Date/Time: 10/31/2018 10:43:58 Reading Location: [facility] [id number] Ultrasound Reading Room Performing Organization Address City/State/Zipcode Phone Number [employer] Hemoglobin A1c (10/30/2018 3:54 AM CDT) Hemoglobin A1C 4.9 4.3 - 6.1 % [facility] Specimen Blood Performing Organization Address City/State/Zipcode Phone Number [facility] [address] [place] [address] CENTER XR abdomen / KUB 1 view (10/29/2018 1:13 PM CDT) Specimen Narrative Performed At FINAL REPORT [employer] TECHNIQUE: Supine radiographs of the abdomen dated 10/29/2018. HISTORY: Abdominal distention. COMPARISON: None IMPRESSION: No air-filled, dilated loops of bowel to suggest obstruction. No free intraperitoneal air. No abnormal soft tissue mass or calcification. Signed: Nancy Concepcion MD Report Verified Date/Time:10/29/2018 14:17:17 Reading Location: [facility] Radiology Reading Room Procedure Note Interface, External Ris In - 10/29/2018 2:19 PM CDT FINAL REPORT TECHNIQUE: Supine radiographs of the abdomen dated 10/29/2018. HISTORY: Abdominal distention. COMPARISON: None IMPRESSION: No air-filled, dilated loops of bowel to suggest obstruction. No free intraperitoneal air. No abnormal soft tissue mass or calcification. Signed: Nancy Concepcion MD Report Verified Date/Time: 10/29/2018 14:17:17 Reading Location: [facility] Radiology Reading Room Performing Organization Address City/[facility] Cent[facility]ode Phone Number [facility] Lipid panel (10/29/2018 4:13 AM CDT) Triglycerides 90 mg/dL [facility] Cholesterol 140 mg/dL [facility] HDL 37 mg/dL [facility] LDL Calculated 85 mg/dL [facility] Specimen Blood Narrative Performed At Triglyceride Reference Range: [facility] Low Risk <150 [id number] High Risk 200-499 Very High Risk>=500 Cholesterol Reference Range: Low Risk <200 [id number] High Risk>240 HDL Cholesterol Reference Range: Low Risk >=60 High Risk <40 LDL Cholesterol Reference Range: Optimal<100 Near [id number] Very High >=190 Performing Organization Address City/[facility] Centercode Phone Number [facility] [address] [place] [address] CENTER STD Panel - CT/GC RNA (10/28/2018 5:53 PM CDT) C. trachomatis RNA, TMA NOT DETECTED [facility] N. gonorrhoeae RNA, TMA NOT DETECTED [facility] Comment: INCORPORATED REFERENCE RANGE:NOT DETECTED This test was performed using the APTIMA(R) COMBO2 Assay (GENTransUnionPROBE). Specimen Urine Narrative Performed At Performing Lab [facility] *[facility] [facility] [address] [place] [address] Maico Villarreal MD Performing Organization Address City/[facility]/Zipcode Phone Number [facility], [place] [address] [address] [facility] Urinalysis w/Microscopic + Reflex to Culture (10/28/2018 5:52 PM CDT) Color, UA Yellow [facility] Clarity, UA Clear [facility] Specific [place], UA 1.007 1.001 - 1.035 [facility] pH, UA 7.5 5.0 - 8.0 [facility] Protein, UA 20 mg/dL (A) Negative [facility] Glucose, UA Negative Negative [facility] Ketones, UA 20 mg/dL (A) Negative [facility] Bilirubin, UA Negative Negative [facility] Blood, UA Trace (A) Negative [facility] Nitrite, UA Negative Negative [facility] Leukocytes, UA Negative Negative [facility] Urobilinogen, UA 2.0 (H) 0.2 - 1.0 mg/dL [facility] RBC, UA 3 /HPF [facility] WBC, UA <1 /HPF [facility] Mucus Rare [facility] Specimen Source [facility] Specimen Urine Performing Organization Address City/[facility]/Zipcode Phone Number [facility] [address] [place] [address] CENTER Blood Culture - Routine (Right Venipuncture) (10/28/2018 12:40 PM CDT)Only the most recent of2 resultswithin the time period is included. Result No growth in 5 days [facility] Specimen Blood Performing Organization Address City/State/Zipcode Phone Number [address] [address] CENTER Hepatitis A antibody, IgG (10/28/2018 12:22 PM CDT) Hep A IgG Nonreactive Nonreactive [facility] Specimen Blood Performing Organization Address [facility] Centercoct Phone Number [address] [address] [phone] [place] Vitamin B12 and Folate (10/28/2018 12:22 PM CDT) Vitamin B12 1,678 (H) 213 - 816 pg/mL [facility] Folate 19.4 >=7.0 ng/mL [facility] Specimen Blood Performing Organization Address [facility] Centercode Phone Number [address] [address] CENTER Iron, TIBC, % sat. (without ferritin) (10/28/2018 12:22 PM CDT) Iron 44.0 40.0 - 160.0 ug/dL [facility] TIBC 186 (L) 250 - 450 ug/dL [facility] Iron % Saturation 24 20 - 55 % [facility] Specimen Blood Performing Organization Address City/[facility] Centercode Phone Number [address] [address] [place] HIV-1 Antigen with HIV-1/2 Antibody (10/28/2018 12:22 PM CDT) HIV-1 Antigen with HIV 1&2 Nonreactive Nonreactive [facility] Antibody MEDICAL [facility]ENTER Specimen Blood Performing Organization Address City/[facility] Centercode Phone Number [address] [address] CENTER Hepatitis C antibody (10/28/2018 12:22 PM CDT) Hepatitis C Ab Nonreactive Nonreactive [facility] Specimen Blood Performing Organization Address City/[facility]/Zipcode Phone Number [address] [address] [place] Hepatitis A antibody, IgM (10/28/2018 12:22 PM CDT) Hep A IgM Nonreactive Nonreactive [facility] Specimen Blood Performing Organization Address City/[facility] Centercode Phone Number [address] [address] [place] Hepatitis B core antibody, total (10/28/2018 12:22 PM CDT) Hep B Core Total Ab Nonreactive Nonreactive [facility] Specimen Blood Performing Organization Address [facility] Centercoct Phone Number [address] [address] [phone] [place] Hepatitis C PCR, Quantitative (10/28/2018 12:22 PM CDT) HCV PCR, Quantitative HCV RNA not detected HCV RNA not detected [facility] Specimen Blood Narrative Performed At This test uses a Real-Time Polymerase Chain [facility] Reaction (RT-PCR) methodology and was performed using MARIANO Ampliprep/MARIANO TaqMan HCV test kit version 2.0 ([employer] Reportable range for this assay is 15 - 100,000,000 IU per mL (1.18 - 8.00 Log IU/mL). Performing Organization Address City/[facility] Centercode Phone Number [address] [address] CENTER RPR (10/28/2018 12:22 PM CDT) RPR Nonreactive Nonreactive [facility] Specimen Blood Performing Organization Address [facility] Centercode Phone Number [address] [address] [place] Hepatitis B surface antibody (10/28/2018 12:22 PM CDT) Hep B S Ab 34.5 (H) <8.0 mIU/mL [facility] Specimen Blood Performing Organization Address City/[facility]/Zipcode Phone Number [address] [address] [phone] [place] Hepatitis B surface antigen (10/28/2018 12:22 PM CDT) hepatitis B Surface Ag Nonreactive Nonreactive [facility] Specimen Blood Performing Organization Address City/[facility]/Zipcode Phone Number [address] [address] [place] Ferritin (10/28/2018 12:22 PM CDT) Ferritin 1,698 (H) 5 - 275 ng/mL [facility] Specimen Blood Performing Organization Address [facility] Centercoct Phone Number [address] [address] [place] US abdomen limited (09/30/2018 5:40 AM CDT) Specimen Narrative Performed At FINAL REPORT [facility] Right upper quadrant abdominal ultrasound, [...] MD Report Verified Date/Time:09/30/2018 08:05:48 Reading Location: [facility] B1 [id number] Ultrasound Reading Room Procedure Note Interface, [...] Report Verified Date/Time: 09/30/2018 08:05:48 Reading Location: [facility] B1 [id number] Ultrasound Reading Room Performing Organization Address City/State/Zipcode Phone Number [facility] Procalcitonin (09/30/2018 12:14 AM CDT) Procalcitonin 0.48 (H) <0.05 ng/mL [facility] Specimen Blood Narrative Performed At SEPSIS RISK (ng/mL) [facility] Low:0.05-0.50 Intermediate: 0.51-2.00 High: >=2.01 Performing Organization Address [facility]/Zipcode Phone Number [facility] [address] [place] [address] CENTER Potassium (09/29/2018 2:14 PM CDT) Potassium 3.4 (L) 3.5 - 5.1 meq/L [facility] Specimen Blood Performing Organization Address [facility] Phone Number [facility] [address] [place] [address] abdomen/pelvis without & with IV contrast (09/29/2018 12:30 PM CDT) Specimen Narrative Performed At FINAL REPORT [employer] [facility] CT abdomen with and without contrast. CT [...] MD Report Verified Date/Time:09/29/2018 12:38:07 Reading Location: [facility] [id number] Ortho Consult Reading Room Procedure Note [...] Report Verified Date/Time: 09/29/2018 12:38:07 Reading Location: [facility] B1 [id number] Ortho Consult Reading Room Performing Organization Address City/State/Zipcode Phone Number GE RIS Triglycerides (09/29/2018 3:51 AM CDT) Triglycerides 71Comment: Specimen slightly mg/dL [facility] hemolyzed [facility] Specimen Blood Narrative Performed At TRIGLYCERIDE REFERENCE RANGE [facility] Low Risk<150 Borderline Risk 150-199 High [id number] Very High Risk >=500 Performing Organization Address City/[facility] Centercode Phone Number [facility] [address] [place] [address] [phone] CENTER ECG 12 lead (09/29/2018 3:45 AM CDT) Specimen Narrative Performed At Ventricular Rate 155 BPM GE MUSE Atrial Rate 155 BPM P-R Interval 120 ms QRS Duration 88 ms Q-T Interval 326 ms QTC Calculation(Bazett) 523 ms P Sawyer 60 degrees R Sawyer 81 degrees T Sawyer 13 degrees Sinus tachycardia Cannot rule out Anterior infarct , age undetermined T wave abnormality, consider inferolateral ischemia Abnormal ECG No previous ECGs available Confirmed by MD Ashlee, Carson ([id number]) on 09/29/2018 2:19:06 PM Procedure Note Interface, External Ris In - 09/29/2018 2:19 PM CDT Ventricular Rate 155 BPM Atrial Rate 155 BPM P-R Interval 120 ms QRS Duration 88 ms Q-T Interval 326 ms QTC Calculation(Bazett) 523 ms P Sawyer 60 degrees R Sawyer 81 degrees T Sawyer 13 degrees Sinus tachycardia Cannot rule out Anterior infarct , age undetermined T wave abnormality, consider inferolateral ischemia Abnormal ECG No previous ECGs available Confirmed by MD Rosado Roberto ([id number]) on 09/29/2018 2:19:06 PM Performing Organization Address City/State/Zipcode Phone Number GE MUSE after 02/17/2018 Advance Directives For more information, please contact:[address] [phone] Code Status Date Activated Date Inactivated Comments Full Code 02/12/2019 12:35 PM 02/15/2019 2:48 PM This code status was determined by: Patient Full Code 10/27/2018 11:55 PM 11/01/2018 6:16 PM This code status was determined by: Patient Full Code 09/29/2018 3:15 AM 10/02/2018 6:49 PM This code status was determined by: Patient
--- OUTSIDE RECORDS SUMMARY | 2019-02-18 20:07 | XMS REPORT ---
:1985 [facility] [address] [place] [address] Care Team Providers Name Role Phone JOSE JWILLIAM CHON HIPOLITONATALIIA Unavailable Unavailable MIKAYLA MENDEZ Unavailable Unavailable YENNY NELSON Unavailable Unavailable ИВАН REMY Unavailable Unavailable Problems This patient has no known problems. Allergies, Adverse Reactions, Alerts This patient has no known allergies or adverse reactions. Medications This patient has no known medications. Results Test Description Test Time Test Comments Text Results Atomic Results Result Comments POCT-GLUCOSE METER 2019-02-15 07:44:00 Test Item Value Reference Range Comments POC-GLUCOSE METER (BEAKER) (test 90 mg/dL 70-110 TESTED AT [facility] [address] [facility] sdwi=8047) [facility] [address] COMPREHENSIVE METABOLIC [id number] 07:29:00 Test Item Value Reference Range Comments TOTAL PROTEIN (BEAKER) 5.7 gm/dL 6.0-8.3 (test tbuy=413) ALBUMIN (BEAKER) (test 2.5 g/dL 3.5-5.0 slge=5701) ALKALINE PHOSPHATASE 411 U/L 40-150 (BEAKER) (test xeoi=221) BILIRUBIN TOTAL (BEAKER) 1.7 mg/dL 0.2-1.2 (test wigl=308) SODIUM (BEAKER) (test 139 meq/L 136-145 kzvt=260) POTASSIUM (BEAKER) (test 3.1 meq/L 3.5-5.1 ubqu=353) CHLORIDE (BEAKER) (test 105 meq/L 98-107 tskv=308) CO2 (BEAKER) (test 24 meq/L 22-29 pmng=885) BLOOD UREA NITROGEN 3 mg/dL 7-21 (BEAKER) (test ojcz=113) CREATININE (BEAKER) (test 0.61 mg/dL 0.57-1.25 gfmv=622) GLUCOSE RANDOM (BEAKER) 95 mg/dL 70-105 (test zlge=347) CALCIUM (BEAKER) (test 6.8 mg/dL 8.4-10.2 flyf=582) AST (SGOT) (BEAKER) (test 173 U/L 5-34 ulxd=292) ALT (SGPT) (BEAKER) (test 53 U/L 6-55 gyrw=524) EGFR (BEAKER) (test 153 mL/min/1.73 sq ESTIMATED GFR IS NOT qlas=2141) m ACCURATE CREATININE CLEARANCE IN PREDICTING GLOMERULAR FILTRATION RATE. ESTIMATED GFR IS NOT APPLICABLE FOR DIALYSIS PATIENTS. [id number] 07:28:00 Test Item Value Reference Range Comments PHOSPHORUS (BEAKER) (test nfyb=172) 2.4 mg/dL 2.3-4.7 [id number] 07:28:00 Test Item Value Reference Range Comments MAGNESIUM (BEAKER) (test mmgl=625) 1.8 mg/dL 1.6-2.6 HEPATIC FUNCTION [id number] 07:28:00 Test Item Value Reference Range Comments TOTAL PROTEIN (BEAKER) (test vlwy=454) 5.7 gm/dL 6.0-8.3 ALBUMIN (BEAKER) (test rivu=9774) 2.5 g/dL 3.5-5.0 BILIRUBIN TOTAL (BEAKER) (test dacy=964) 1.7 mg/dL 0.2-1.2 BILIRUBIN DIRECT (BEAKER) (test rdyd=043) 1.3 mg/dL 0.1-0.5 ALKALINE PHOSPHATASE (BEAKER) (test ihxt=813) 411 U/L 40-150 AST (SGOT) (BEAKER) (test asaq=413) 173 U/L 5-34 ALT (SGPT) (BEAKER) (test vzjq=477) 53 U/L 6-55 [id number] 07:28:00 Test Item Value Reference Range Comments LIPASE (BEAKER) (test igpb=496) 231 U/L 8-78 CBC W/PLT COUNT & AUTO [id number] 07:10:00 Test Item Value Reference Range Comments WHITE BLOOD CELL COUNT (BEAKER) (test mria=648) 4.5 K/ L 3.5-10.5 RED BLOOD CELL COUNT (BEAKER) (test dwji=229) 2.76 M/ L 4.63-6.08 HEMOGLOBIN (BEAKER) (test ruhy=565) 9.2 GM/DL 13.7-17.5 HEMATOCRIT (BEAKER) (test ovyc=458) 29.2 % 40.1-51.0 MEAN CORPUSCULAR VOLUME (BEAKER) (test fvsd=739) 105.8 fL 79.0-92.2 MEAN CORPUSCULAR HEMOGLOBIN (BEAKER) (test 33.3 pg 25.7-32.2 pgya=266) MEAN CORPUSCULAR HEMOGLOBIN CONC (BEAKER) (test 31.5 GM/DL 32.3-36.5 pslg=416) RED CELL DISTRIBUTION WIDTH (BEAKER) (test 21.9 % 11.6-14.4 fmsz=094) PLATELET COUNT (BEAKER) (test bikl=679) 150 K/CU MM 150-450 MEAN PLATELET VOLUME (BEAKER) (test plqm=896) 10.5 fL 9.4-12.4 NUCLEATED RED BLOOD CELLS (BEAKER) (test 0 /100 WBC 0-0 eoch=943) NEUTROPHILS RELATIVE PERCENT (BEAKER) (test 65 % yqcq=077) LYMPHOCYTES RELATIVE PERCENT (BEAKER) (test 17 % bvut=977) MONOCYTES RELATIVE PERCENT (BEAKER) (test 13 % fbaa=544) EOSINOPHILS RELATIVE PERCENT (BEAKER) (test 2 % oaru=251) BASOPHILS RELATIVE PERCENT (BEAKER) (test 1 % fqyh=949) NEUTROPHILS ABSOLUTE COUNT (BEAKER) (test 2.91 K/ L 1.78-5.38 frpj=064) LYMPHOCYTES ABSOLUTE COUNT (BEAKER) (test 0.78 K/ L 1.32-3.57 jqjj=121) MONOCYTES ABSOLUTE COUNT (BEAKER) (test 0.59 K/ L 0.30-0.82 hhgk=478) EOSINOPHILS ABSOLUTE COUNT (BEAKER) (test 0.11 K/ L 0.04-0.54 krqj=168) BASOPHILS ABSOLUTE COUNT (BEAKER) (test 0.05 K/ L 0.01-0.08 qjuq=551) IMMATURE GRANULOCYTES-RELATIVE PERCENT (BEAKER) 2 % 0-1 (test paer=9244) COMPREHENSIVE METABOLIC [id number] 04:23:00 Test Item Value Reference Range Comments TOTAL PROTEIN (BEAKER) 5.5 gm/dL 6.0-8.3 (test btob=485) ALBUMIN (BEAKER) (test 2.5 g/dL 3.5-5.0 yscm=1583) ALKALINE PHOSPHATASE 453 U/L 40-150 (BEAKER) (test cjvz=055) BILIRUBIN TOTAL (BEAKER) 2.0 mg/dL 0.2-1.2 (test ssgi=170) SODIUM (BEAKER) (test 138 meq/L 136-145 hili=275) POTASSIUM (BEAKER) (test 3.2 meq/L 3.5-5.1 btsv=882) CHLORIDE (BEAKER) (test 104 meq/L 98-107 yjoz=694) CO2 (BEAKER) (test 26 meq/L 22-29 qmox=761) BLOOD UREA NITROGEN 3 mg/dL 7-21 (BEAKER) (test msnx=795) CREATININE (BEAKER) (test 0.51 mg/dL 0.57-1.25 pvqm=942) GLUCOSE RANDOM (BEAKER) 104 mg/dL 70-105 (test qqho=566) CALCIUM (BEAKER) (test 7.0 mg/dL 8.4-10.2 muwu=222) AST (SGOT) (BEAKER) (test 166 U/L 5-34 vdda=491) ALT (SGPT) (BEAKER) (test 52 U/L 6-55 ymyi=883) EGFR (BEAKER) (test 188 mL/min/1.73 sq ESTIMATED GFR IS NOT keam=3009) m ACCURATE CREATININE CLEARANCE IN PREDICTING GLOMERULAR FILTRATION RATE. ESTIMATED GFR IS NOT APPLICABLE FOR DIALYSIS PATIENTS. [id number] 04:21:00 Test Item Value Reference Range Comments PHOSPHORUS (BEAKER) (test krtg=538) 2.0 mg/dL 2.3-4.7 [id number] 04:21:00 Test Item Value Reference Range Comments MAGNESIUM (BEAKER) (test hkoq=234) 1.5 mg/dL 1.6-2.6 HEPATIC FUNCTION [id number] 04:21:00 Test Item Value Reference Range Comments TOTAL PROTEIN (BEAKER) (test smqw=821) 5.5 gm/dL 6.0-8.3 ALBUMIN (BEAKER) (test qpig=8864) 2.5 g/dL 3.5-5.0 BILIRUBIN TOTAL (BEAKER) (test lrbt=999) 2.0 mg/dL 0.2-1.2 BILIRUBIN DIRECT (BEAKER) (test ybnn=388) 1.5 mg/dL 0.1-0.5 ALKALINE PHOSPHATASE (BEAKER) (test vajm=355) 453 U/L 40-150 AST (SGOT) (BEAKER) (test ocut=142) 166 U/L 5-34 ALT (SGPT) (BEAKER) (test pksi=332) 52 U/L 6-55 [id number] 04:21:00 Test Item Value Reference Range Comments LIPASE (BEAKER) (test ovru=951) 283 U/L 8-78 CBC W/PLT COUNT & AUTO [id number] 04:19:00 Test Item Value Reference Range Comments WHITE BLOOD CELL COUNT (BEAKER) (test ebzn=567) 4.6 K/ L 3.5-10.5 RED BLOOD CELL COUNT (BEAKER) (test yytv=229) 2.82 M/ L 4.63-6.08 HEMOGLOBIN (BEAKER) (test ybwz=156) 9.4 GM/DL 13.7-17.5 HEMATOCRIT (BEAKER) (test qqgp=620) 28.9 % 40.1-51.0 MEAN CORPUSCULAR VOLUME (BEAKER) (test zwqq=556) 102.5 fL 79.0-92.2 MEAN CORPUSCULAR HEMOGLOBIN (BEAKER) (test 33.3 pg 25.7-32.2 dcof=581) MEAN CORPUSCULAR HEMOGLOBIN CONC (BEAKER) (test 32.5 GM/DL 32.3-36.5 tror=092) RED CELL DISTRIBUTION WIDTH (BEAKER) (test 21.8 % 11.6-14.4 qifo=661) PLATELET COUNT (BEAKER) (test agny=498) 141 K/CU MM 150-450 MEAN PLATELET VOLUME (BEAKER) (test qxqy=869) 9.5 fL 9.4-12.4 NUCLEATED RED BLOOD CELLS (BEAKER) (test 0 /100 WBC 0-0 qlmb=650) NEUTROPHILS RELATIVE PERCENT (BEAKER) (test 63 % squa=809) LYMPHOCYTES RELATIVE PERCENT (BEAKER) (test 22 % qolp=749) MONOCYTES RELATIVE PERCENT (BEAKER) (test 10 % wiub=659) EOSINOPHILS RELATIVE PERCENT (BEAKER) (test 3 % xdob=770) BASOPHILS RELATIVE PERCENT (BEAKER) (test 1 % byxn=568) NEUTROPHILS ABSOLUTE COUNT (BEAKER) (test 2.86 K/ L 1.78-5.38 nnil=841) LYMPHOCYTES ABSOLUTE COUNT (BEAKER) (test 1.02 K/ L 1.32-3.57 dqkv=214) MONOCYTES ABSOLUTE COUNT (BEAKER) (test 0.44 K/ L 0.30-0.82 ciin=453) EOSINOPHILS ABSOLUTE COUNT (BEAKER) (test 0.12 K/ L 0.04-0.54 kqnb=698) BASOPHILS ABSOLUTE COUNT (BEAKER) (test 0.05 K/ L 0.01-0.08 tbyc=344) IMMATURE GRANULOCYTES-RELATIVE PERCENT (BEAKER) 2 % 0-1 (test varg=3358) HEMOGLOBIN AND [id number] 03:57:00 Test Item Value Reference Range Comments HEMOGLOBIN (BEAKER) (test dwsk=106) 9.4 GM/DL 13.7-17.5 HEMATOCRIT (BEAKER) (test mfwq=001) 28.9 % 40.1-51.0 HEMOGLOBIN AND [id number] 11:59:00 Test Item Value Reference Range Comments HEMOGLOBIN (BEAKER) (test daar=533) 8.4 GM/DL 13.7-17.5 HEMATOCRIT (BEAKER) (test hogn=058) 24.7 % 40.1-51.0 [id number] 09:15:00 Test Item Value Reference Range Comments LIPASE (BEAKER) (test wgvh=501) 214 U/L 8-78 HEPATIC FUNCTION [id number] 06:09:00 Test Item Value Reference Range Comments TOTAL PROTEIN (BEAKER) (test trag=859) 5.1 gm/dL 6.0-8.3 ALBUMIN (BEAKER) (test udqu=5684) 2.4 g/dL 3.5-5.0 BILIRUBIN TOTAL (BEAKER) (test pras=953) 2.0 mg/dL 0.2-1.2 BILIRUBIN DIRECT (BEAKER) (test qrke=585) 1.4 mg/dL 0.1-0.5 ALKALINE PHOSPHATASE (BEAKER) (test mkcc=714) 418 U/L 40-150 AST (SGOT) (BEAKER) (test kszu=536) 147 U/L 5-34 ALT (SGPT) (BEAKER) (test wqhc=620) 51 U/L 6-55 CBC (HEMOGRAM ONLY)2019-02-13 05:04:00 Test Item Value Reference Range Comments WHITE BLOOD CELL COUNT (BEAKER) (test uweb=217) 4.8 K/ L 3.5-10.5 RED BLOOD CELL COUNT (BEAKER) (test hhpe=164) 2.41 M/ L 4.63-6.08 HEMOGLOBIN (BEAKER) (test vclx=341) 8.1 GM/DL 13.7-17.5 HEMATOCRIT (BEAKER) (test puwe=090) 24.1 % 40.1-51.0 MEAN CORPUSCULAR VOLUME (BEAKER) (test hequ=000) 100.0 fL 79.0-92.2 MEAN CORPUSCULAR HEMOGLOBIN (BEAKER) (test 33.6 pg 25.7-32.2 kzek=631) MEAN CORPUSCULAR HEMOGLOBIN CONC (BEAKER) (test 33.6 GM/DL 32.3-36.5 quxi=649) RED CELL DISTRIBUTION WIDTH (BEAKER) (test 22.4 % 11.6-14.4 sjbq=887) PLATELET COUNT (BEAKER) (test clam=394) 135 K/CU MM 150-450 MEAN PLATELET VOLUME (BEAKER) (test gsmq=920) 10.0 fL 9.4-12.4 NUCLEATED RED BLOOD CELLS (BEAKER) (test 1 /100 WBC 0-0 bhma=751) BASIC METABOLIC [id number] 02:50:00 Test Item Value Reference Range Comments SODIUM (BEAKER) (test 137 meq/L 136-145 zmak=849) POTASSIUM (BEAKER) (test 3.1 meq/L 3.5-5.1 ofhf=712) CHLORIDE (BEAKER) (test 104 meq/L 98-107 hfdh=179) CO2 (BEAKER) (test 24 meq/L 22-29 teng=429) BLOOD UREA NITROGEN 3 mg/dL 7-21 (BEAKER) (test ogtp=296) CREATININE (BEAKER) (test 0.50 mg/dL 0.57-1.25 mjen=747) GLUCOSE RANDOM (BEAKER) 124 mg/dL 70-105 (test zkxl=645) CALCIUM (BEAKER) (test 6.5 mg/dL 8.4-10.2 odwn=297) EGFR (BEAKER) (test 193 mL/min/1.73 sq m ESTIMATED GFR IS NOT pwtu=4861) ACCURATE CREATININE CLEARANCE IN PREDICTING GLOMERULAR FILTRATION RATE. ESTIMATED GFR IS NOT APPLICABLE FOR DIALYSIS PATIENTS. [id number] 02:14:00 Test Item Value Reference Range Comments PHOSPHORUS (BEAKER) (test yznn=044) 2.6 mg/dL 2.3-4.7 [id number] 02:14:00 Test Item Value Reference Range Comments MAGNESIUM (BEAKER) (test kprn=283) 1.9 mg/dL 1.6-2.6 HEMOGLOBIN AND [id number] 01:13:00 Test Item Value Reference Range Comments HEMOGLOBIN (BEAKER) (test pkrs=154) 8.1 GM/DL 13.7-17.5 HEMATOCRIT (BEAKER) (test pdid=652) 23.8 % 40.1-51.0 POCT-GLUCOSE [id number] 20:56:00 Test Item Value Reference Range Comments POC-GLUCOSE METER (BEAKER) 105 mg/dL 70-110 TESTED AT [facility] [address] [place] [address] (test ztot=9958) [facility] [address] COMPREHENSIVE METABOLIC [id number] 14:51:00 Test Item Value Reference Range Comments TOTAL PROTEIN (BEAKER) 6.0 gm/dL 6.0-8.3 (test gqgk=856) ALBUMIN (BEAKER) (test 2.8 g/dL 3.5-5.0 kbjh=8803) ALKALINE PHOSPHATASE 489 U/L 40-150 (BEAKER) (test wlsq=153) BILIRUBIN TOTAL (BEAKER) 2.7 mg/dL 0.2-1.2 (test qlwf=426) SODIUM (BEAKER) (test 141 meq/L 136-145 emur=418) POTASSIUM (BEAKER) (test 2.6 meq/L 3.5-5.1 mxqa=096) CHLORIDE (BEAKER) (test 103 meq/L 98-107 jixj=047) CO2 (BEAKER) (test 28 meq/L 22-29 tvse=940) BLOOD UREA NITROGEN 5 mg/dL 7-21 (BEAKER) (test kbrn=197) CREATININE (BEAKER) (test 0.54 mg/dL 0.57-1.25 hlot=833) GLUCOSE RANDOM (BEAKER) 88 mg/dL 70-105 (test wnsp=618) CALCIUM (BEAKER) (test 7.1 mg/dL 8.4-10.2 nssm=070) AST (SGOT) (BEAKER) (test 168 U/L 5-34 gqow=640) ALT (SGPT) (BEAKER) (test 61 U/L 6-55 keno=893) EGFR (BEAKER) (test 176 mL/min/1.73 sq ESTIMATED GFR IS NOT eycq=3000) m ACCURATE CREATININE CLEARANCE IN PREDICTING GLOMERULAR FILTRATION RATE. ESTIMATED GFR IS NOT APPLICABLE FOR DIALYSIS PATIENTS. Specimen slightly [id number] 14:51:00 Test Item Value Reference Range Comments PHOSPHORUS (BEAKER) (test bloh=943) 0.9 mg/dL 2.3-4.7 [id number] 14:41:00 Test Item Value Reference Range Comments MAGNESIUM (BEAKER) (test xxzp=710) 1.3 mg/dL 1.6-2.6 [id number] 14:41:00 Test Item Value Reference Range Comments AMYLASE (BEAKER) (test zbza=185) 160 U/L 25-125 Specimen slightly ictericLACTATE DEHYDROGENASE (LDH)2019-02-12 14:41:00 Test Item Value Reference Range Comments LACTATE DEHYDROGENASE (BEAKER) (test tmsa=940) 572 U/L 125-220 [id number] 14:41:00 Test Item Value Reference Range Comments LIPASE (BEAKER) (test owel=703) 562 U/L 8-78 Specimen slightly [id number] 14:39:00 Test Item Value Reference Range Comments ETHANOL (BEAKER) (test xrxk=350) < mg/dL <=10 [id number] 14:27:00 Test Item Value Reference Range Comments D-DIMER QUANTITATIVE (BEAKER) (test podp=991) 4.23 MG/L FEU <0.50 Intended Use: The D-Dimer Assay can be used to aid in the diagnosis of Deep Vein Thrombosis (DVT) and Pulmonary Embolism Disease (PED).In patients with low pre-test probability, various studies concerning STA Liatest D-dimer test have reported that with a cutoff value of 0.50 MG/L FEU, the Negative Predictive Value (NPV) regarding the exclusion of thrombosis is within 95-100% range.LACTIC ACID, [id number] 14:25:00 Test Item Value Reference Range Comments LACTATE BLOOD VENOUS (2) (BEAKER) (test 1.5 mmol/L 0.5-2.2 aeni=8222) [id number] 14:21:00 Test Item Value Reference Range Comments AMMONIA (BEAKER) (test ukyt=715) 50 mol/L 18-72 [id number] 14:17:00 Test Item Value Reference Range Comments PROTIME (BEAKER) (test ecux=451) 17.8 seconds 11.9-14.2 INR (BEAKER) (test bacd=584) 1.6 <=5.9 PARTIAL THROMBOPLASTIN TIME (BEAKER) (test 34.9 seconds 22.5-36.0 cjrd=944) Effective 12/11/2018: PT Reference Range ChangeNew: 11.9-14.2 Previous: 11.7- 14.7RECOMMENDED COUMADIN/WARFARIN INR THERAPY RANGESSTANDARD DOSE: 2.0-3.0 Includes: PROPHYLAXIS for venous thrombosis, systemic embolization; TREATMENT for venous thrombosis and/or pulmonary embolus.HIGH RISK: Target INR is2.5-3.5 for patients wiht mechanical heart valves.[id number] 14:17:00 Test Item Value Reference Range Comments FIBRINOGEN LEVEL (BEAKER) (test jzvd=436) 304 mg/dl 225-434 CBC (HEMOGRAM ONLY)2019-02-12 14:13:00 Test Item Value Reference Range Comments WHITE BLOOD CELL COUNT 5.0 K/ L 3.5-10.5 (BEAKER) (test mklt=244) RED BLOOD CELL COUNT (BEAKER) 2.64 M/ L 4.63-6.08 (test lrle=689) HEMOGLOBIN (BEAKER) (test 9.0 GM/DL 13.7-17.5 yajz=525) HEMATOCRIT (BEAKER) (test 27.0 % 40.1-51.0 gacm=432) MEAN CORPUSCULAR VOLUME 102.3 fL 79.0-92.2 (BEAKER) (test rmon=576) MEAN CORPUSCULAR HEMOGLOBIN 34.1 pg 25.7-32.2 (BEAKER) (test pjpe=294) MEAN CORPUSCULAR HEMOGLOBIN 33.3 GM/DL 32.3-36.5 CONC (BEAKER) (test zhob=296) RED CELL DISTRIBUTION WIDTH % 11.6-14.4 Unable to report due to (BEAKER) (test rqvz=441) abnormal Platelet population distribution. PLATELET COUNT (BEAKER) (test 146 K/CU MM 150-450 acdv=358) MEAN PLATELET VOLUME (BEAKER) 10.0 fL 9.4-12.4 (test slrp=353) NUCLEATED RED BLOOD CELLS 1 /100 WBC 0-0 (BEAKER) (test yuad=178) CBC W/PLT COUNT & AUTO [id number] 05:36:00 Test Item Value Reference Range Comments WHITE BLOOD CELL COUNT (BEAKER) (test muvq=870) 3.1 K/ L 3.5-10.5 RED BLOOD CELL COUNT (BEAKER) (test dylt=209) 3.39 M/ L 4.63-6.08 HEMOGLOBIN (BEAKER) (test kanl=129) 11.5 GM/DL 13.7-17.5 HEMATOCRIT (BEAKER) (test quhg=265) 33.7 % 40.1-51.0 MEAN CORPUSCULAR VOLUME (BEAKER) (test vmtg=831) 99.4 fL 79.0-92.2 MEAN CORPUSCULAR HEMOGLOBIN (BEAKER) (test 33.9 pg 25.7-32.2 uyrm=333) MEAN CORPUSCULAR HEMOGLOBIN CONC (BEAKER) (test 34.1 GM/DL 32.3-36.5 lmqg=724) RED CELL DISTRIBUTION WIDTH (BEAKER) (test 12.8 % 11.6-14.4 nebb=309) PLATELET COUNT (BEAKER) (test sapk=355) 130 K/CU MM 150-450 MEAN PLATELET VOLUME (BEAKER) (test iunt=237) 10.4 fL 9.4-12.4 NUCLEATED RED BLOOD CELLS (BEAKER) (test 0 /100 WBC 0-0 rqzg=862) NEUTROPHILS RELATIVE PERCENT (BEAKER) (test 51 % mich=744) LYMPHOCYTES RELATIVE PERCENT (BEAKER) (test 31 % vjml=075) MONOCYTES RELATIVE PERCENT (BEAKER) (test 12 % nyjz=835) EOSINOPHILS RELATIVE PERCENT (BEAKER) (test 4 % dqhc=731) BASOPHILS RELATIVE PERCENT (BEAKER) (test 1 % yora=173) NEUTROPHILS ABSOLUTE COUNT (BEAKER) (test 1.61 K/ L 1.78-5.38 ehfv=316) LYMPHOCYTES ABSOLUTE COUNT (BEAKER) (test 0.98 K/ L 1.32-3.57 mcqu=398) MONOCYTES ABSOLUTE COUNT (BEAKER) (test 0.38 K/ L 0.30-0.82 rbtz=198) EOSINOPHILS ABSOLUTE COUNT (BEAKER) (test 0.11 K/ L 0.04-0.54 hifa=000) BASOPHILS ABSOLUTE COUNT (BEAKER) (test 0.04 K/ L 0.01-0.08 qjoz=854) IMMATURE GRANULOCYTES-RELATIVE PERCENT (BEAKER) 1 % 0-1 (test tpqo=1847) MR, ABDOMEN, [id number] 13:31:00FINAL REPORT MRCP, MRI of abdomen without [...] or choledocholithiasis identified. Trace ascites. Signed: Korin Reyeseport Verified Date/Time: 12/12/2018 13:31:00 Reading Location: [facility] B1 C013Y CT Body Reading Room COMPREHENSIVE METABOLIC [id number] 09:56:00 Test Item Value Reference Range Comments TOTAL PROTEIN (BEAKER) 5.5 gm/dL 6.0-8.3 (test dlec=978) ALBUMIN (BEAKER) (test 3.1 g/dL 3.5-5.0 nzzi=0508) ALKALINE PHOSPHATASE 116 U/L 40-150 (BEAKER) (test wwyl=802) BILIRUBIN TOTAL (BEAKER) 1.9 mg/dL 0.2-1.2 (test hphc=428) SODIUM (BEAKER) (test 139 meq/L 136-145 krvo=069) POTASSIUM (BEAKER) (test 3.0 meq/L 3.5-5.1 obix=738) CHLORIDE (BEAKER) (test 107 meq/L 98-107 tijh=799) CO2 (BEAKER) (test 23 meq/L 22-29 rxio=865) BLOOD UREA NITROGEN 4 mg/dL 7-21 (BEAKER) (test uqcg=890) CREATININE (BEAKER) (test 0.56 mg/dL 0.57-1.25 bxcw=130) GLUCOSE RANDOM (BEAKER) 116 mg/dL 70-105 (test uzyv=748) CALCIUM (BEAKER) (test 7.4 mg/dL 8.4-10.2 rryt=216) AST (SGOT) (BEAKER) (test 297 U/L 5-34 ocal=698) ALT (SGPT) (BEAKER) (test 173 U/L 6-55 iahh=395) EGFR (BEAKER) (test 169 mL/min/1.73 sq ESTIMATED GFR IS NOT cwlb=5533) m ACCURATE CREATININE CLEARANCE IN PREDICTING GLOMERULAR FILTRATION RATE. ESTIMATED GFR IS NOT APPLICABLE FOR DIALYSIS PATIENTS. CBC W/PLT COUNT & AUTO [id number] 04:42:00 Test Item Value Reference Range Comments WHITE BLOOD CELL COUNT (BEAKER) (test akjn=747) 3.1 K/ L 3.5-10.5 RED BLOOD CELL COUNT (BEAKER) (test arik=068) 3.09 M/ L 4.63-6.08 HEMOGLOBIN (BEAKER) (test vtdv=671) 10.7 GM/DL 13.7-17.5 HEMATOCRIT (BEAKER) (test bsow=137) 30.5 % 40.1-51.0 MEAN CORPUSCULAR VOLUME (BEAKER) (test wmek=990) 98.7 fL 79.0-92.2 MEAN CORPUSCULAR HEMOGLOBIN (BEAKER) (test 34.6 pg 25.7-32.2 twru=797) MEAN CORPUSCULAR HEMOGLOBIN CONC (BEAKER) (test 35.1 GM/DL 32.3-36.5 kcki=578) RED CELL DISTRIBUTION WIDTH (BEAKER) (test 12.4 % 11.6-14.4 tmwp=020) PLATELET COUNT (BEAKER) (test yojd=718) 99 K/CU MM 150-450 MEAN PLATELET VOLUME (BEAKER) (test csbw=162) 11.0 fL 9.4-12.4 NUCLEATED RED BLOOD CELLS (BEAKER) (test 0 /100 WBC 0-0 eysp=360) NEUTROPHILS RELATIVE PERCENT (BEAKER) (test 60 % fuei=784) LYMPHOCYTES RELATIVE PERCENT (BEAKER) (test 26 % kjzb=901) MONOCYTES RELATIVE PERCENT (BEAKER) (test 11 % pimm=990) EOSINOPHILS RELATIVE PERCENT (BEAKER) (test 2 % xmpr=412) BASOPHILS RELATIVE PERCENT (BEAKER) (test 1 % vmch=740) NEUTROPHILS ABSOLUTE COUNT (BEAKER) (test 1.84 K/ L 1.78-5.38 idyl=138) LYMPHOCYTES ABSOLUTE COUNT (BEAKER) (test 0.81 K/ L 1.32-3.57 pwpn=955) MONOCYTES ABSOLUTE COUNT (BEAKER) (test xdqo=866) 0.34 K/ L 0.30-0.82 EOSINOPHILS ABSOLUTE COUNT (BEAKER) (test 0.06 K/ L 0.04-0.54 wpyj=429) BASOPHILS ABSOLUTE COUNT (BEAKER) (test vuiy=474) 0.03 K/ L 0.01-0.08 IMMATURE GRANULOCYTES-RELATIVE PERCENT (BEAKER) 0 % 0-1 (test glie=0838) FL, ESOPH, SWALLOW FUNCTION, WITH CINE OR [id number] 12:02:00Reason for exam:->pneumomediastinum, rule out esophageal perforationFINAL [...] Verified Date/Time: 12/11/2018 12:02: 17 Reading Location: [address] Ortho Consult Reading Room BASIC METABOLIC [id number] 07:31:00 Test Item Value Reference Range Comments SODIUM (BEAKER) (test 139 meq/L 136-145 pudf=412) POTASSIUM (BEAKER) (test 3.4 meq/L 3.5-5.1 Specimen slightly eczx=122) hemolyzed CHLORIDE (BEAKER) (test 103 meq/L 98-107 nabm=106) CO2 (BEAKER) (test 20 meq/L 22-29 jdnw=927) BLOOD UREA NITROGEN 18 mg/dL 7-21 (BEAKER) (test whee=580) CREATININE (BEAKER) (test 0.73 mg/dL 0.57-1.25 Specimen slightly nzyk=005) hemolyzed GLUCOSE RANDOM (BEAKER) 67 mg/dL 70-105 (test jzkn=639) CALCIUM (BEAKER) (test 8.6 mg/dL 8.4-10.2 xiwi=367) EGFR (BEAKER) (test 125 mL/min/1.73 sq m ESTIMATED GFR IS NOT kxbl=0387) ACCURATE CREATININE CLEARANCE IN PREDICTING GLOMERULAR FILTRATION RATE. ESTIMATED GFR IS NOT APPLICABLE FOR DIALYSIS PATIENTS. CBC W/PLT COUNT & AUTO [id number] 07:12:00 Test Item Value Reference Range Comments WHITE BLOOD CELL COUNT (BEAKER) (test dcpe=386) 4.6 K/ L 3.5-10.5 RED BLOOD CELL COUNT (BEAKER) (test ocfx=995) 3.19 M/ L 4.63-6.08 HEMOGLOBIN (BEAKER) (test xzxl=217) 11.1 GM/DL 13.7-17.5 HEMATOCRIT (BEAKER) (test zirw=398) 31.0 % 40.1-51.0 MEAN CORPUSCULAR VOLUME (BEAKER) (test vjer=515) 97.2 fL 79.0-92.2 MEAN CORPUSCULAR HEMOGLOBIN (BEAKER) (test 34.8 pg 25.7-32.2 nghf=875) MEAN CORPUSCULAR HEMOGLOBIN CONC (BEAKER) (test 35.8 GM/DL 32.3-36.5 nzpm=952) RED CELL DISTRIBUTION WIDTH (BEAKER) (test 13.0 % 11.6-14.4 tgjd=013) PLATELET COUNT (BEAKER) (test ojpp=664) 103 K/CU MM 150-450 MEAN PLATELET VOLUME (BEAKER) (test rbxt=958) 11.0 fL 9.4-12.4 NUCLEATED RED BLOOD CELLS (BEAKER) (test 0 /100 WBC 0-0 orqd=415) NEUTROPHILS RELATIVE PERCENT (BEAKER) (test 73 % ffyf=688) LYMPHOCYTES RELATIVE PERCENT (BEAKER) (test 16 % pehj=261) MONOCYTES RELATIVE PERCENT (BEAKER) (test 9 % uncm=470) EOSINOPHILS RELATIVE PERCENT (BEAKER) (test 1 % pefw=117) BASOPHILS RELATIVE PERCENT (BEAKER) (test 0 % rarv=038) NEUTROPHILS ABSOLUTE COUNT (BEAKER) (test 3.36 K/ L 1.78-5.38 immh=918) LYMPHOCYTES ABSOLUTE COUNT (BEAKER) (test 0.75 K/ L 1.32-3.57 dima=326) MONOCYTES ABSOLUTE COUNT (BEAKER) (test 0.41 K/ L 0.30-0.82 wfph=228) EOSINOPHILS ABSOLUTE COUNT (BEAKER) (test 0.04 K/ L 0.04-0.54 cnyh=562) BASOPHILS ABSOLUTE COUNT (BEAKER) (test 0.02 K/ L 0.01-0.08 auch=724) IMMATURE GRANULOCYTES-RELATIVE PERCENT (BEAKER) 1 % 0-1 (test azdd=9906) RAD, CHEST, 1 VIEW, NON [id number] 20:13:00Reason for exam:-> pneumomediastinumShould this be performed [...] Verified Date /Time: 12/10/2018 20:13:39 Reading Location: [address] Reading Room [id number] 19:12:00 Test Item Value Reference Range Comments MAGNESIUM (BEAKER) (test 1.8 mg/dL 1.6-2.6 Specimen slightly hemolyzed hfdp=834) COMPREHENSIVE METABOLIC [id number] 19:12:00 Test Item Value Reference Range Comments TOTAL PROTEIN (BEAKER) 6.3 gm/dL 6.0-8.3 Specimen slightly (test aetv=472) hemolyzed ALBUMIN (BEAKER) (test 3.7 g/dL 3.5-5.0 Specimen slightly breu=4724) hemolyzed ALKALINE PHOSPHATASE 129 U/L 40-150 (BEAKER) (test knfh=305) BILIRUBIN TOTAL (BEAKER) 2.9 mg/dL 0.2-1.2 Specimen slightly (test pgsi=591) hemolyzed SODIUM (BEAKER) (test 137 meq/L 136-145 fbhq=932) POTASSIUM (BEAKER) (test 2.7 meq/L 3.5-5.1 Specimen slightly exei=024) hemolyzed CHLORIDE (BEAKER) (test 99 meq/L 98-107 cldq=188) CO2 (BEAKER) (test 23 meq/L 22-29 qlzl=858) BLOOD UREA NITROGEN 22 mg/dL 7-21 (BEAKER) (test eaeg=657) CREATININE (BEAKER) (test 1.28 mg/dL 0.57-1.25 Specimen slightly uumd=815) hemolyzed GLUCOSE RANDOM (BEAKER) 78 mg/dL 70-105 (test mdzp=140) CALCIUM (BEAKER) (test 8.5 mg/dL 8.4-10.2 gjmu=408) AST (SGOT) (BEAKER) (test 502 U/L 5-34 Specimen slightly hnoq=811) hemolyzed ALT (SGPT) (BEAKER) (test 225 U/L 6-55 Specimen slightly pqcd=883) hemolyzed EGFR (BEAKER) (test 65 mL/min/1.73 sq m ESTIMATED GFR IS NOT nefz=3087) ACCURATE CREATININE CLEARANCE IN PREDICTING GLOMERULAR FILTRATION RATE. ESTIMATED GFR IS NOT APPLICABLE FOR DIALYSIS PATIENTS. Specimen slightly ictericPROTHROMBIN [id number] 18:53:00 Test Item Value Reference Range Comments PROTIME (BEAKER) (test rdus=160) 15.8 seconds 11.7-14.7 INR (BEAKER) (test vipc=091) 1.3 <=5.9 RECOMMENDED COUMADIN/WARFARIN INR THERAPY RANGESSTANDARD DOSE: 2.0 - 3.0 Includes: PROPHYLAXIS forvenous thrombosis, systemic embolization; TREATMENT for venous thrombosis and/or pulmonary embolus.HIGH RISK: Target INR is 2.5-3.5 for patients with mechanical heart valves.CBC W/PLT COUNT & AUTO [id number] 18:49:00 Test Item Value Reference Range Comments WHITE BLOOD CELL COUNT (BEAKER) (test bfmu=720) 6.0 K/ L 3.5-10.5 RED BLOOD CELL COUNT (BEAKER) (test jkks=902) 3.44 M/ L 4.63-6.08 HEMOGLOBIN (BEAKER) (test cpva=697) 11.6 GM/DL 13.7-17.5 HEMATOCRIT (BEAKER) (test iojc=437) 34.1 % 40.1-51.0 MEAN CORPUSCULAR VOLUME (BEAKER) (test xaxe=911) 99.1 fL 79.0-92.2 MEAN CORPUSCULAR HEMOGLOBIN (BEAKER) (test 33.7 pg 25.7-32.2 zkcz=194) MEAN CORPUSCULAR HEMOGLOBIN CONC (BEAKER) (test 34.0 GM/DL 32.3-36.5 amld=089) RED CELL DISTRIBUTION WIDTH (BEAKER) (test 13.1 % 11.6-14.4 euvl=225) PLATELET COUNT (BEAKER) (test naav=638) 109 K/CU MM 150-450 MEAN PLATELET VOLUME (BEAKER) (test wwot=193) 11.0 fL 9.4-12.4 NUCLEATED RED BLOOD CELLS (BEAKER) (test 0 /100 WBC 0-0 ktno=441) NEUTROPHILS RELATIVE PERCENT (BEAKER) (test 81 % cyni=159) LYMPHOCYTES RELATIVE PERCENT (BEAKER) (test 12 % naiy=818) MONOCYTES RELATIVE PERCENT (BEAKER) (test 7 % iizg=718) EOSINOPHILS RELATIVE PERCENT (BEAKER) (test 0 % cpoz=452) BASOPHILS RELATIVE PERCENT (BEAKER) (test 0 % hxja=818) NEUTROPHILS ABSOLUTE COUNT (BEAKER) (test 4.84 K/ L 1.78-5.38 fjyt=573) LYMPHOCYTES ABSOLUTE COUNT (BEAKER) (test 0.72 K/ L 1.32-3.57 xnrw=609) MONOCYTES ABSOLUTE COUNT (BEAKER) (test 0.41 K/ L 0.30-0.82 zkwn=152) EOSINOPHILS ABSOLUTE COUNT (BEAKER) (test 0.01 K/ L 0.04-0.54 kowp=531) BASOPHILS ABSOLUTE COUNT (BEAKER) (test 0.02 K/ L 0.01-0.08 vftj=957) IMMATURE GRANULOCYTES-RELATIVE PERCENT (BEAKER) 0 % 0-1 (test gncy=6300) BLOOD [id number] 20:01:00 Test Item Value Reference Range Comments CULTURE (BEAKER) (test getj=5704) No growth in 5 days BLOOD [id number] 20:01:00 Test Item Value Reference Range Comments CULTURE (BEAKER) (test mrsn=0077) No growth in 5 days RAD, CHEST, 1 VIEW, NON [id number] 13:13:00Reason for exam:->evalute for pneumoniaShould this be performed at the bedside?->YesAddendum BeginsREPORT STATUS:A Addendum:Clinical diagnosis alcohol withdrawalsyndrome, electrolyte disturbances, elevated liver function tests, pneumonia, Signed: DellMarilu MDReport Verified Date/Time: 11/01/2018 13:13: 23 Reading Location: [address] Consult Reading RoomAddendum EndsFINAL REPORT Chest radiograph [...] parenchymal opacity. Impression:No active cardiopulmonary disease. Signed: DellMarilu MDReport Verified Date/Time: 10/28 15:36:38 Reading Location: [address] Consult Reading Room U/S, ABDOMINAL, WITH [id number] 10:43:00Reason for exam:->evaluate for portal hypertension, cirrhosis, [...] at 8 mm.Unremarkable abdominal Dopplerultrasound. Signed: Marilu Sharpeeport Verified Date/Time: 10/31/2018 10:43:58 Reading Location: [address] Ultrasound Reading Room COMPREHENSIVE METABOLIC [id number] 06:57:00 Test Item Value Reference Range Comments TOTAL PROTEIN (BEAKER) 6.3 gm/dL 6.0-8.3 (test eoxj=510) ALBUMIN (BEAKER) (test 3.4 g/dL 3.5-5.0 opra=9477) ALKALINE PHOSPHATASE 165 U/L 40-150 (BEAKER) (test xpmo=428) BILIRUBIN TOTAL (BEAKER) 0.6 mg/dL 0.2-1.2 (test atpe=839) SODIUM (BEAKER) (test 140 meq/L 136-145 xuig=024) POTASSIUM (BEAKER) (test 3.6 meq/L 3.5-5.1 uzbs=105) CHLORIDE (BEAKER) (test 102 meq/L 98-107 oevr=133) CO2 (BEAKER) (test 29 meq/L 22-29 fdpx=538) BLOOD UREA NITROGEN 3 mg/dL 7-21 (BEAKER) (test zunt=998) CREATININE (BEAKER) (test 0.55 mg/dL 0.57-1.25 wvcr=076) GLUCOSE RANDOM (BEAKER) 89 mg/dL 70-105 (test yogb=366) CALCIUM (BEAKER) (test 9.2 mg/dL 8.4-10.2 mhhi=337) AST (SGOT) (BEAKER) (test 184 U/L 5-34 bfgw=414) ALT (SGPT) (BEAKER) (test 156 U/L 6-55 jlbd=261) EGFR (BEAKER) (test 173 mL/min/1.73 sq ESTIMATED GFR IS NOT ifay=2917) m ACCURATE CREATININE CLEARANCE IN PREDICTING GLOMERULAR FILTRATION RATE. ESTIMATED GFR IS NOT APPLICABLE FOR DIALYSIS PATIENTS. HEMOGLOBIN [id number] 09:30:00 Test Item Value Reference Range Comments HEMOGLOBIN A1C (BEAKER) (test hifm=424) 4.9 % 4.3-6.1 COMPREHENSIVE METABOLIC [id number] 05:17:00 Test Item Value Reference Range Comments TOTAL PROTEIN (BEAKER) 6.5 gm/dL 6.0-8.3 (test jfgo=276) ALBUMIN (BEAKER) (test 3.6 g/dL 3.5-5.0 eewo=0522) ALKALINE PHOSPHATASE 170 U/L 40-150 (BEAKER) (test ndnv=949) BILIRUBIN TOTAL (BEAKER) 0.9 mg/dL 0.2-1.2 (test upks=833) SODIUM (BEAKER) (test 141 meq/L 136-145 eukg=893) POTASSIUM (BEAKER) (test 3.5 meq/L 3.5-5.1 brgk=552) CHLORIDE (BEAKER) (test 104 meq/L 98-107 pfpd=266) CO2 (BEAKER) (test 26 meq/L 22-29 xdtw=449) BLOOD UREA NITROGEN 4 mg/dL 7-21 (BEAKER) (test npqo=238) CREATININE (BEAKER) (test 0.55 mg/dL 0.57-1.25 hbgu=424) GLUCOSE RANDOM (BEAKER) 89 mg/dL 70-105 (test ghuq=971) CALCIUM (BEAKER) (test 9.3 mg/dL 8.4-10.2 jjim=490) AST (SGOT) (BEAKER) (test 167 U/L 5-34 pbek=162) ALT (SGPT) (BEAKER) (test 156 U/L 6-55 uwjr=693) EGFR (BEAKER) (test 173 mL/min/1.73 sq ESTIMATED GFR IS NOT ulcw=2678) m ACCURATE CREATININE CLEARANCE IN PREDICTING GLOMERULAR FILTRATION RATE. ESTIMATED GFR IS NOT APPLICABLE FOR DIALYSIS PATIENTS. CBC W/PLT COUNT & AUTO [id number] 04:53:00 Test Item Value Reference Range Comments WHITE BLOOD CELL COUNT (BEAKER) (test wbha=840) 3.4 K/ L 3.5-10.5 RED BLOOD CELL COUNT (BEAKER) (test fzfp=905) 3.45 M/ L 4.63-6.08 HEMOGLOBIN (BEAKER) (test tfie=529) 11.8 GM/DL 13.7-17.5 HEMATOCRIT (BEAKER) (test vkkm=805) 34.4 % 40.1-51.0 MEAN CORPUSCULAR VOLUME (BEAKER) (test yiwa=810) 99.7 fL 79.0-92.2 MEAN CORPUSCULAR HEMOGLOBIN (BEAKER) (test 34.2 pg 25.7-32.2 fhdj=448) MEAN CORPUSCULAR HEMOGLOBIN CONC (BEAKER) (test 34.3 GM/DL 32.3-36.5 slst=448) RED CELL DISTRIBUTION WIDTH (BEAKER) (test 12.2 % 11.6-14.4 cttg=601) PLATELET COUNT (BEAKER) (test hfdk=112) 175 K/CU MM 150-450 MEAN PLATELET VOLUME (BEAKER) (test wivd=411) 10.3 fL 9.4-12.4 NUCLEATED RED BLOOD CELLS (BEAKER) (test 0 /100 WBC 0-0 vswv=042) NEUTROPHILS RELATIVE PERCENT (BEAKER) (test 55 % jaax=668) LYMPHOCYTES RELATIVE PERCENT (BEAKER) (test 30 % lszw=751) MONOCYTES RELATIVE PERCENT (BEAKER) (test 11 % vydq=441) EOSINOPHILS RELATIVE PERCENT (BEAKER) (test 3 % ikpa=110) BASOPHILS RELATIVE PERCENT (BEAKER) (test 1 % kxko=477) NEUTROPHILS ABSOLUTE COUNT (BEAKER) (test 1.89 K/ L 1.78-5.38 mjsi=642) LYMPHOCYTES ABSOLUTE COUNT (BEAKER) (test 1.03 K/ L 1.32-3.57 yium=773) MONOCYTES ABSOLUTE COUNT (BEAKER) (test 0.39 K/ L 0.30-0.82 qyee=865) EOSINOPHILS ABSOLUTE COUNT (BEAKER) (test 0.09 K/ L 0.04-0.54 qrlo=566) BASOPHILS ABSOLUTE COUNT (BEAKER) (test 0.03 K/ L 0.01-0.08 xqkp=181) IMMATURE GRANULOCYTES-RELATIVE PERCENT (BEAKER) 0 % 0-1 (test uxqh=4600) LIPID [id number] 17:30:00 Test Item Value Reference Range Comments TRIGLYCERIDES (BEAKER) (test xfof=416) 90 mg/dL CHOLESTEROL (BEAKER) (test rcti=389) 140 mg/dL HDL CHOLESTEROL (BEAKER) (test khxc=188) 37 mg/dL LDL CHOLESTEROL CALCULATED (BEAKER) (test 85 mg/dL lsbc=718) Triglyceride Reference Range: Low Risk <150 Borderline 150- 199 High Risk 200-499 Very High Risk >=500Cholesterol Reference Range: Low Risk <200 Borderline 200-239 High Risk > 240HDL Cholesterol Reference Range: Low Risk >=60 High Risk <40LDL Cholesterol Reference Range: Optimal <100 Near Optimal 100-129 Borderline 130-159 High 160-189 Very High >=190HEPATITIS C PCR, [id number] 14:57:00 Test Item Value Reference Range Comments HCV RESULT COMPONENT (BEAKER) HCV RNA not detected HCV RNA not detected (test ajao=0216) This test uses a Real-Time Polymerase Chain Reaction (RT-PCR) methodology and was performed using [employer] Ampliprep/MARIANO TaqMan HCV test kit version 2.0 ( [employer]).Reportable range for this assay is 15 - 100,000, 000 IU per mL (1.18 - 8.00 Log IU/mL).RAD, ABDOMEN/KUB, 1 VIEW [id number] 14: 17:00Reason for exam:->abd distensionFINAL REPORT TECHNIQUE: Supine radiographs of the abdomen dated 10/29/2018. HISTORY: Abdominal distention. COMPARISON: None IMPRESSION:No air-filled, dilated loops of bowel to suggest obstruction. No free intraperitoneal air. No abnormal soft tissue mass or calcification. Signed:Nancy Concepcion MDReport Verified Date/ Time: 10/29/2018 14:17:17 Reading Location: [facility] Radiology Reading Room [id number] 13:28:00 Test Item Value Reference Range Comments RPR SCREEN (BEAKER) (test pcrp=260) Nonreactive Nonreactive [id number] 05:12:00 Test Item Value Reference Range Comments PHOSPHORUS (BEAKER) (test xijf=721) 2.5 mg/dL 2.3-4.7 COMPREHENSIVE METABOLIC [id number] 05:12:00 Test Item Value Reference Range Comments TOTAL PROTEIN (BEAKER) 6.9 gm/dL 6.0-8.3 (test jqmr=740) ALBUMIN (BEAKER) (test 3.9 g/dL 3.5-5.0 mrsu=2231) ALKALINE PHOSPHATASE 200 U/L 40-150 (BEAKER) (test bdib=300) BILIRUBIN TOTAL (BEAKER) 1.2 mg/dL 0.2-1.2 (test rziw=380) SODIUM (BEAKER) (test 137 meq/L 136-145 ofja=466) POTASSIUM (BEAKER) (test 3.3 meq/L 3.5-5.1 xrrk=592) CHLORIDE (BEAKER) (test 97 meq/L 98-107 pmxr=402) CO2 (BEAKER) (test 27 meq/L 22-29 iqql=494) BLOOD UREA NITROGEN 3 mg/dL 7-21 (BEAKER) (test yqpk=599) CREATININE (BEAKER) (test 0.57 mg/dL 0.57-1.25 wskx=765) GLUCOSE RANDOM (BEAKER) 108 mg/dL 70-105 (test unrk=738) CALCIUM (BEAKER) (test 9.4 mg/dL 8.4-10.2 emny=143) AST (SGOT) (BEAKER) (test 263 U/L 5-34 vkcy=401) ALT (SGPT) (BEAKER) (test 215 U/L 6-55 camk=560) EGFR (BEAKER) (test 166 mL/min/1.73 sq ESTIMATED GFR IS NOT wtdp=2548) m ACCURATE CREATININE CLEARANCE IN PREDICTING GLOMERULAR FILTRATION RATE. ESTIMATED GFR IS NOT APPLICABLE FOR DIALYSIS PATIENTS. PROTHROMBIN [id number] 04:53:00 Test Item Value Reference Range Comments PROTIME (BEAKER) (test wmmk=795) 16.0 seconds 11.7-14.7 INR (BEAKER) (test qzia=100) 1.3 <=5.9 RECOMMENDED COUMADIN/WARFARIN INR THERAPY RANGESSTANDARD DOSE: 2.0 - 3.0 Includes: PROPHYLAXIS forvenous thrombosis, systemic embolization; TREATMENT for venous thrombosis and/or pulmonary embolus.HIGH RISK: Target INR is 2.5-3.5 for patients with mechanical heart valves.URINALYSIS W/ REFLEX URINE [id number] 18:43:00 Test Item Value Reference Range Comments COLOR (BEAKER) (test zexv=744) Yellow CLARITY (BEAKER) (test ybnb=518) Clear SPECIFIC GRAVITY UA (BEAKER) (test kthj=998) 1.007 1.001-1.035 PH UA (BEAKER) (test kmvw=584) 7.5 5.0-8.0 PROTEIN UA (BEAKER) (test iznm=791) 20 mg/dL Negative GLUCOSE UA (BEAKER) (test hwhj=279) Negative Negative KETONES UA (BEAKER) (test otbu=925) 20 mg/dL Negative BILIRUBIN UA (BEAKER) (test uqio=420) Negative Negative BLOOD UA (BEAKER) (test djxr=477) Trace Negative NITRITE UA (BEAKER) (test hfoo=623) Negative Negative LEUKOCYTE ESTERASE UA (BEAKER) (test zuhm=200) Negative Negative UROBILINOGEN UA (BEAKER) (test mckz=946) 2.0 mg/dL 0.2-1.0 RBC UA (BEAKER) (test syvc=432) 3 /HPF WBC UA (BEAKER) (test xhes=447) < /HPF MUCUS (BEAKER) (test xaqm=0105) Rare SOURCE(BEAKER) (test bjms=0294) VITAMIN B12 AND [id number] 15:08:00 Test Item Value Reference Range Comments VITAMIN B12 (BEAKER) (test vabf=109) 1678 pg/mL 213-816 FOLATE (BEAKER) (test zyxu=464) 19.4 ng/mL >=7.0 [id number] 14:48:00 Test Item Value Reference Range Comments FERRITIN (BEAKER) (test vayp=629) 1698 ng/mL 5-275 IRON, TIBC, % SAT. (WITHOUT FERRITIN)[id number] 13:26:00 Test Item Value Reference Range Comments IRON (BEAKER) (test koyu=752) 44.0 ug/dL 40.0-160.0 TOTAL IRON BINDING CAPACITY (BEAKER) (test 186 ug/dL 250-450 shpf=748) IRON % SATURATION (2) (BEAKER) (test ezll=2421) 24 % 20-55 HEPATITIS B SURFACE [id number] 13:26:00 Test Item Value Reference Range Comments HEPATITIS B SURFACE ANTIGEN (2) (BEAKER) (test Nonreactive Nonreactive hvxz=7834) HEPATITIS C [id number] 13:26:00 Test Item Value Reference Range Comments HEPATITIS C ANTIBODY (BEAKER) (test xqsk=387) Nonreactive Nonreactive HIV-1 ANTIGEN WITH HIV-1/2 [id number] 13:26:00 Test Item Value Reference Range Comments HIV-1 ANTIGEN WITH HIV 1\T\2 ANTIBODY (2) Nonreactive Nonreactive (BEAKER) (test wpuk=3539) HEPATITIS B SURFACE [id number] 13:19:00 Test Item Value Reference Range Comments HEPATITIS B SURFACE ANTIBODY (BEAKER) (test 34.5 mIU/mL <8.0 kynh=587) HEPATITIS A ANTIBODY, [id number] 13:19:00 Test Item Value Reference Range Comments HEPATITIS A IGM ANTIBODY (BEAKER) (test Nonreactive Nonreactive tupu=752) HEPATITIS B CORE ANTIBODY, [id number] 13:19:00 Test Item Value Reference Range Comments HEPATITIS B CORE TOTAL ANTIBODY (BEAKER) (test Nonreactive Nonreactive gjiu=758) HEPATITIS A ANTIBODY, [id number] 13:19:00 Test Item Value Reference Range Comments HEPATITIS A IGG ANTIBODY (BEAKER) (test Nonreactive Nonreactive ilvi=6264) PROTHROMBIN [id number] 13:00:00 Test Item Value Reference Range Comments PROTIME (BEAKER) (test wwlb=419) 15.5 seconds 11.7-14.7 INR (BEAKER) (test jfck=808) 1.2 <=5.9 RECOMMENDED COUMADIN/WARFARIN INR THERAPY RANGESSTANDARD DOSE: 2.0 - 3.0 Includes: PROPHYLAXIS forvenous thrombosis, systemic embolization; TREATMENT for venous thrombosis and/or pulmonary embolus.HIGH RISK: Target INR is 2.5-3.5 for patients with mechanical heart valves.[id number] 03:31:00 Test Item Value Reference Range Comments PHOSPHORUS (BEAKER) (test uvcu=785) 3.5 mg/dL 2.3-4.7 [id number] 03:31:00 Test Item Value Reference Range Comments MAGNESIUM (BEAKER) (test zstu=824) 1.5 mg/dL 1.6-2.6 COMPREHENSIVE METABOLIC [id number] 03:31:00 Test Item Value Reference Range Comments TOTAL PROTEIN (BEAKER) 6.5 gm/dL 6.0-8.3 (test xnun=161) ALBUMIN (BEAKER) (test 3.7 g/dL 3.5-5.0 sksy=9600) ALKALINE PHOSPHATASE 200 U/L 40-150 (BEAKER) (test kshr=561) BILIRUBIN TOTAL (BEAKER) 0.8 mg/dL 0.2-1.2 (test yevi=600) SODIUM (BEAKER) (test 142 meq/L 136-145 bxio=550) POTASSIUM (BEAKER) (test 3.1 meq/L 3.5-5.1 ohlf=788) CHLORIDE (BEAKER) (test 103 meq/L 98-107 sntz=860) CO2 (BEAKER) (test 24 meq/L 22-29 adhw=044) BLOOD UREA NITROGEN 4 mg/dL 7-21 (BEAKER) (test qlpw=880) CREATININE (BEAKER) (test 0.55 mg/dL 0.57-1.25 ymoo=034) GLUCOSE RANDOM (BEAKER) 100 mg/dL 70-105 (test bidg=875) CALCIUM (BEAKER) (test 8.5 mg/dL 8.4-10.2 fslv=535) AST (SGOT) (BEAKER) (test 318 U/L 5-34 akyi=991) ALT (SGPT) (BEAKER) (test 244 U/L 6-55 zmoo=942) EGFR (BEAKER) (test 173 mL/min/1.73 sq ESTIMATED GFR IS NOT qdsq=0783) m ACCURATE CREATININE CLEARANCE IN PREDICTING GLOMERULAR FILTRATION RATE. ESTIMATED GFR IS NOT APPLICABLE FOR DIALYSIS PATIENTS. CBC W/PLT COUNT & AUTO [id number] 03:03:00 Test Item Value Reference Range Comments WHITE BLOOD CELL COUNT (BEAKER) (test mpvp=855) 4.2 K/ L 3.5-10.5 RED BLOOD CELL COUNT (BEAKER) (test ewih=151) 3.61 M/ L 4.63-6.08 HEMOGLOBIN (BEAKER) (test mgxj=611) 12.3 GM/DL 13.7-17.5 HEMATOCRIT (BEAKER) (test abzk=144) 35.9 % 40.1-51.0 MEAN CORPUSCULAR VOLUME (BEAKER) (test mzif=777) 99.4 fL 79.0-92.2 MEAN CORPUSCULAR HEMOGLOBIN (BEAKER) (test 34.1 pg 25.7-32.2 yocy=427) MEAN CORPUSCULAR HEMOGLOBIN CONC (BEAKER) (test 34.3 GM/DL 32.3-36.5 cwpy=972) RED CELL DISTRIBUTION WIDTH (BEAKER) (test 12.3 % 11.6-14.4 ufso=546) PLATELET COUNT (BEAKER) (test yahm=123) 122 K/CU MM 150-450 MEAN PLATELET VOLUME (BEAKER) (test ebwu=015) 9.8 fL 9.4-12.4 NUCLEATED RED BLOOD CELLS (BEAKER) (test 0 /100 WBC 0-0 htzu=630) NEUTROPHILS RELATIVE PERCENT (BEAKER) (test 70 % dyul=633) LYMPHOCYTES RELATIVE PERCENT (BEAKER) (test 17 % whhn=251) MONOCYTES RELATIVE PERCENT (BEAKER) (test 11 % cmdk=349) EOSINOPHILS RELATIVE PERCENT (BEAKER) (test 1 % yzbc=553) BASOPHILS RELATIVE PERCENT (BEAKER) (test 1 % ictx=764) NEUTROPHILS ABSOLUTE COUNT (BEAKER) (test 2.94 K/ L 1.78-5.38 hvkw=201) LYMPHOCYTES ABSOLUTE COUNT (BEAKER) (test 0.73 K/ L 1.32-3.57 droe=322) MONOCYTES ABSOLUTE COUNT (BEAKER) (test 0.45 K/ L 0.30-0.82 ybfh=683) EOSINOPHILS ABSOLUTE COUNT (BEAKER) (test 0.04 K/ L 0.04-0.54 dpdo=959) BASOPHILS ABSOLUTE COUNT (BEAKER) (test 0.02 K/ L 0.01-0.08 zqze=763) IMMATURE GRANULOCYTES-RELATIVE PERCENT (BEAKER) 1 % 0-1 (test tnjf=9744) POCT-GLUCOSE [id number] 12:15:00 Test Item Value Reference Range Comments POC-GLUCOSE METER (BEAKER) 99 mg/dL 70-110 TESTED AT [facility] [address] [facility] (test hrtn=1997) [facility] [address] [id number] 06:15:00 Test Item Value Reference Range Comments MAGNESIUM (BEAKER) (test kejr=269) 1.8 mg/dL 1.6-2.6 COMPREHENSIVE METABOLIC [id number] 06:15:00 Test Item Value Reference Range Comments TOTAL PROTEIN (BEAKER) 6.6 gm/dL 6.0-8.3 (test reyt=917) ALBUMIN (BEAKER) (test 3.6 g/dL 3.5-5.0 yzor=3692) ALKALINE PHOSPHATASE 149 U/L 40-150 (BEAKER) (test pgpd=047) BILIRUBIN TOTAL (BEAKER) 0.8 mg/dL 0.2-1.2 (test dafd=043) SODIUM (BEAKER) (test 135 meq/L 136-145 ydkr=976) POTASSIUM (BEAKER) (test 3.6 meq/L 3.5-5.1 ihpz=741) CHLORIDE (BEAKER) (test 98 meq/L 98-107 ozsf=487) CO2 (BEAKER) (test 26 meq/L 22-29 xgpe=622) BLOOD UREA NITROGEN 8 mg/dL 7-21 (BEAKER) (test ysrd=410) CREATININE (BEAKER) (test 0.57 mg/dL 0.57-1.25 xnnl=880) GLUCOSE RANDOM (BEAKER) 100 mg/dL 70-105 (test ztuz=604) CALCIUM (BEAKER) (test 9.5 mg/dL 8.4-10.2 mrad=439) AST (SGOT) (BEAKER) (test 155 U/L 5-34 kuro=611) ALT (SGPT) (BEAKER) (test 151 U/L 6-55 kmwn=248) EGFR (BEAKER) (test 166 mL/min/1.73 sq ESTIMATED GFR IS NOT cvwu=4351) m ACCURATE CREATININE CLEARANCE IN PREDICTING GLOMERULAR FILTRATION RATE. ESTIMATED GFR IS NOT APPLICABLE FOR DIALYSIS PATIENTS. CBC W/PLT COUNT & AUTO [id number] 05:30:00 Test Item Value Reference Range Comments WHITE BLOOD CELL COUNT (BEAKER) (test useu=542) 5.1 K/ L 3.5-10.5 RED BLOOD CELL COUNT (BEAKER) (test zhsg=674) 3.81 M/ L 4.63-6.08 HEMOGLOBIN (BEAKER) (test wltf=161) 13.1 GM/DL 13.7-17.5 HEMATOCRIT (BEAKER) (test imtp=895) 37.6 % 40.1-51.0 MEAN CORPUSCULAR VOLUME (BEAKER) (test cuns=930) 98.7 fL 79.0-92.2 MEAN CORPUSCULAR HEMOGLOBIN (BEAKER) (test 34.4 pg 25.7-32.2 ufrz=329) MEAN CORPUSCULAR HEMOGLOBIN CONC (BEAKER) (test 34.8 GM/DL 32.3-36.5 vrxy=006) RED CELL DISTRIBUTION WIDTH (BEAKER) (test 11.5 % 11.6-14.4 ajmp=934) PLATELET COUNT (BEAKER) (test xyvl=686) 152 K/CU MM 150-450 MEAN PLATELET VOLUME (BEAKER) (test bvrh=123) 10.2 fL 9.4-12.4 NUCLEATED RED BLOOD CELLS (BEAKER) (test 0 /100 WBC 0-0 ruia=230) NEUTROPHILS RELATIVE PERCENT (BEAKER) (test 71 % yvwy=456) LYMPHOCYTES RELATIVE PERCENT (BEAKER) (test 14 % bkfm=742) MONOCYTES RELATIVE PERCENT (BEAKER) (test 11 % nfqe=920) EOSINOPHILS RELATIVE PERCENT (BEAKER) (test 2 % cjru=191) BASOPHILS RELATIVE PERCENT (BEAKER) (test 1 % jdpj=466) NEUTROPHILS ABSOLUTE COUNT (BEAKER) (test 3.66 K/ L 1.78-5.38 jegm=914) LYMPHOCYTES ABSOLUTE COUNT (BEAKER) (test 0.71 K/ L 1.32-3.57 njqh=377) MONOCYTES ABSOLUTE COUNT (BEAKER) (test 0.58 K/ L 0.30-0.82 mmbl=746) EOSINOPHILS ABSOLUTE COUNT (BEAKER) (test 0.10 K/ L 0.04-0.54 xsdw=242) BASOPHILS ABSOLUTE COUNT (BEAKER) (test 0.04 K/ L 0.01-0.08 ykfr=175) IMMATURE GRANULOCYTES-RELATIVE PERCENT (BEAKER) 1 % 0-1 (test upqz=7444) POCT-GLUCOSE [id number] 11:54:00 Test Item Value Reference Range Comments POC-GLUCOSE METER (BEAKER) 83 mg/dL 70-110 TESTED AT [facility] [address] [facility] (test bshd=0940) [facility] [address] [id number] 05:54:00 Test Item Value Reference Range Comments PHOSPHORUS (BEAKER) (test mtkf=909) 2.3 mg/dL 2.3-4.7 [id number] 05:54:00 Test Item Value Reference Range Comments MAGNESIUM (BEAKER) (test nraw=776) 2.0 mg/dL 1.6-2.6 COMPREHENSIVE METABOLIC [id number] 05:54:00 Test Item Value Reference Range Comments TOTAL PROTEIN (BEAKER) 6.0 gm/dL 6.0-8.3 (test ujpu=132) ALBUMIN (BEAKER) (test 3.2 g/dL 3.5-5.0 ifkr=4969) ALKALINE PHOSPHATASE 134 U/L 40-150 (BEAKER) (test bwui=059) BILIRUBIN TOTAL (BEAKER) 1.1 mg/dL 0.2-1.2 (test iuiv=621) SODIUM (BEAKER) (test 134 meq/L 136-145 ljib=734) POTASSIUM (BEAKER) (test 3.6 meq/L 3.5-5.1 irxk=339) CHLORIDE (BEAKER) (test 100 meq/L 98-107 lfqq=965) CO2 (BEAKER) (test 26 meq/L 22-29 jiyb=789) BLOOD UREA NITROGEN 4 mg/dL 7-21 (BEAKER) (test vdjn=881) CREATININE (BEAKER) (test 0.54 mg/dL 0.57-1.25 vibd=585) GLUCOSE RANDOM (BEAKER) 141 mg/dL 70-105 (test liwf=619) CALCIUM (BEAKER) (test 8.8 mg/dL 8.4-10.2 tull=571) AST (SGOT) (BEAKER) (test 183 U/L 5-34 jyks=798) ALT (SGPT) (BEAKER) (test 149 U/L 6-55 uidt=945) EGFR (BEAKER) (test 176 mL/min/1.73 sq ESTIMATED GFR IS NOT capo=2934) m ACCURATE CREATININE CLEARANCE IN PREDICTING GLOMERULAR FILTRATION RATE. ESTIMATED GFR IS NOT APPLICABLE FOR DIALYSIS PATIENTS. LACTIC ACID, [id number] 05:35:00 Test Item Value Reference Range Comments LACTATE BLOOD VENOUS (2) (BEAKER) (test 1.0 mmol/L 0.5-2.2 gfpw=5195) CBC W/PLT COUNT & AUTO [id number] 05:23:00 Test Item Value Reference Range Comments WHITE BLOOD CELL COUNT (BEAKER) (test mklu=120) 5.0 K/ L 3.5-10.5 RED BLOOD CELL COUNT (BEAKER) (test gvyq=187) 3.88 M/ L 4.63-6.08 HEMOGLOBIN (BEAKER) (test cwzc=855) 13.0 GM/DL 13.7-17.5 HEMATOCRIT (BEAKER) (test htmz=300) 38.5 % 40.1-51.0 MEAN CORPUSCULAR VOLUME (BEAKER) (test gqyn=861) 99.2 fL 79.0-92.2 MEAN CORPUSCULAR HEMOGLOBIN (BEAKER) (test 33.5 pg 25.7-32.2 wxcm=393) MEAN CORPUSCULAR HEMOGLOBIN CONC (BEAKER) (test 33.8 GM/DL 32.3-36.5 caxj=062) RED CELL DISTRIBUTION WIDTH (BEAKER) (test 11.6 % 11.6-14.4 irup=280) PLATELET COUNT (BEAKER) (test zwxi=930) 113 K/CU MM 150-450 MEAN PLATELET VOLUME (BEAKER) (test saan=948) 10.7 fL 9.4-12.4 NUCLEATED RED BLOOD CELLS (BEAKER) (test 0 /100 WBC 0-0 btiu=165) NEUTROPHILS RELATIVE PERCENT (BEAKER) (test 72 % uyjz=797) LYMPHOCYTES RELATIVE PERCENT (BEAKER) (test 15 % qfgn=406) MONOCYTES RELATIVE PERCENT (BEAKER) (test 10 % vnnm=360) EOSINOPHILS RELATIVE PERCENT (BEAKER) (test 2 % byyb=325) BASOPHILS RELATIVE PERCENT (BEAKER) (test 1 % wcmh=462) NEUTROPHILS ABSOLUTE COUNT (BEAKER) (test 3.56 K/ L 1.78-5.38 mktm=875) LYMPHOCYTES ABSOLUTE COUNT (BEAKER) (test 0.76 K/ L 1.32-3.57 zxnj=827) MONOCYTES ABSOLUTE COUNT (BEAKER) (test 0.49 K/ L 0.30-0.82 ybcy=857) EOSINOPHILS ABSOLUTE COUNT (BEAKER) (test 0.10 K/ L 0.04-0.54 jspr=452) BASOPHILS ABSOLUTE COUNT (BEAKER) (test 0.04 K/ L 0.01-0.08 labi=399) IMMATURE GRANULOCYTES-RELATIVE PERCENT (BEAKER) 1 % 0-1 (test nqjh=9020) POCT-GLUCOSE [id number] 18:44:00 Test Item Value Reference Range Comments POC-GLUCOSE METER (BEAKER) 100 mg/dL 70-110 TESTED AT [address] (test gilv=7183) [facility] [address] [id number] 17:58:00 Test Item Value Reference Range Comments PHOSPHORUS (BEAKER) (test uhac=071) 2.3 mg/dL 2.3-4.7 [id number] 17:58:00 Test Item Value Reference Range Comments MAGNESIUM (BEAKER) (test ltrx=046) 1.8 mg/dL 1.6-2.6 BASIC METABOLIC [id number] 17:58:00 Test Item Value Reference Range Comments SODIUM (BEAKER) (test 137 meq/L 136-145 libm=362) POTASSIUM (BEAKER) (test 3.6 meq/L 3.5-5.1 ffoo=974) CHLORIDE (BEAKER) (test 102 meq/L 98-107 qamm=391) CO2 (BEAKER) (test 26 meq/L 22-29 nlev=392) BLOOD UREA NITROGEN 4 mg/dL 7-21 (BEAKER) (test etma=861) CREATININE (BEAKER) (test 0.54 mg/dL 0.57-1.25 mfwq=122) GLUCOSE RANDOM (BEAKER) 123 mg/dL 70-105 (test fnqz=452) CALCIUM (BEAKER) (test 8.7 mg/dL 8.4-10.2 gkxu=481) EGFR (BEAKER) (test 177 mL/min/1.73 sq m ESTIMATED GFR IS NOT jacc=8621) ACCURATE CREATININE CLEARANCE IN PREDICTING GLOMERULAR FILTRATION RATE. ESTIMATED GFR IS NOT APPLICABLE FOR DIALYSIS PATIENTS. [id number] 16:55:00 Test Item Value Reference Range Comments MAGNESIUM (BEAKER) (test 1.6 mg/dL 1.6-2.6 Specimen slightly hemolyzed bwud=830) [id number] 16:55:00 Test Item Value Reference Range Comments PHOSPHORUS (BEAKER) (test 2.3 mg/dL 2.3-4.7 Specimen slightly hemolyzed nqws=921) BASIC METABOLIC [id number] 16:55:00 Test Item Value Reference Range Comments SODIUM (BEAKER) (test 138 meq/L 136-145 yowe=402) POTASSIUM (BEAKER) (test 3.7 meq/L 3.5-5.1 Specimen slightly fgej=351) hemolyzed CHLORIDE (BEAKER) (test 105 meq/L 98-107 nkwa=277) CO2 (BEAKER) (test 23 meq/L 22-29 gqpn=959) BLOOD UREA NITROGEN 4 mg/dL 7-21 (BEAKER) (test fhrx=561) CREATININE (BEAKER) (test 0.51 mg/dL 0.57-1.25 Specimen slightly vrfo=261) hemolyzed GLUCOSE RANDOM (BEAKER) 99 mg/dL 70-105 (test gotk=448) CALCIUM (BEAKER) (test 8.0 mg/dL 8.4-10.2 lujh=636) EGFR (BEAKER) (test 190 mL/min/1.73 sq m ESTIMATED GFR IS NOT yiav=[id number]) ACCURATE CREATININE CLEARANCE IN PREDICTING GLOMERULAR FILTRATION RATE. ESTIMATED GFR IS NOT APPLICABLE FOR DIALYSIS PATIENTS. POCT-GLUCOSE [id number] 12:41:00 Test Item Value Reference Range Comments POC-GLUCOSE METER (BEAKER) 100 mg/dL 70-110 TESTED AT [address] (test sech=8672) [facility] [address] POCT-GLUCOSE [id number] 08:07:00 Test Item Value Reference Range Comments POC-GLUCOSE METER (BEAKER) 99 mg/dL 70-110 TESTED AT [address] (test skzb=8553) [facility] [address] U/S, ABDOMINAL, [id number] 08:05:00Abdomen limited area? Add comment if clarification [...] Verified Date /Time: 09/30/2018 08:05:48 Reading Location: [address] Ultrasound Reading Room [id number] 07:23:00 Test Item Value Reference Range Comments PHOSPHORUS (BEAKER) (test oxmk=083) 1.2 mg/dL 2.3-4.7 [id number] 07:11:00 Test Item Value Reference Range Comments MAGNESIUM (BEAKER) (test kygb=215) 2.3 mg/dL 1.6-2.6 COMPREHENSIVE METABOLIC [id number] 07:11:00 Test Item Value Reference Range Comments TOTAL PROTEIN (BEAKER) 5.8 gm/dL 6.0-8.3 (test kxnk=512) ALBUMIN (BEAKER) (test 3.1 g/dL 3.5-5.0 lrfn=6950) ALKALINE PHOSPHATASE 141 U/L 40-150 (BEAKER) (test sohi=801) BILIRUBIN TOTAL (BEAKER) 1.1 mg/dL 0.2-1.2 (test ytib=258) SODIUM (BEAKER) (test 135 meq/L 136-145 cnrn=633) POTASSIUM (BEAKER) (test 3.7 meq/L 3.5-5.1 dgaz=316) CHLORIDE (BEAKER) (test 104 meq/L 98-107 fweg=043) CO2 (BEAKER) (test 24 meq/L 22-29 gvpt=813) BLOOD UREA NITROGEN 5 mg/dL 7-21 (BEAKER) (test hiee=957) CREATININE (BEAKER) (test 0.39 mg/dL 0.57-1.25 qlsz=234) GLUCOSE RANDOM (BEAKER) 114 mg/dL 70-105 (test txlz=605) CALCIUM (BEAKER) (test 8.3 mg/dL 8.4-10.2 tzcn=823) AST (SGOT) (BEAKER) (test 354 U/L 5-34 cbxg=959) ALT (SGPT) (BEAKER) (test 188 U/L 6-55 hsvj=086) EGFR (BEAKER) (test 258 mL/min/1.73 sq ESTIMATED GFR IS NOT pegm=0211) m ACCURATE CREATININE CLEARANCE IN PREDICTING GLOMERULAR FILTRATION RATE. ESTIMATED GFR IS NOT APPLICABLE FOR DIALYSIS PATIENTS. LACTIC ACID, [id number] 04:07:00 Test Item Value Reference Range Comments LACTATE BLOOD VENOUS (2) 0.8 mmol/L 0.5-2.2 Specimen slightly hemolyzed (BEAKER) (test cehg=2049) CBC W/PLT COUNT & AUTO [id number] 04:00:00 Test Item Value Reference Range Comments WHITE BLOOD CELL COUNT (BEAKER) (test guju=253) 6.1 K/ L 3.5-10.5 RED BLOOD CELL COUNT (BEAKER) (test wixo=346) 3.87 M/ L 4.63-6.08 HEMOGLOBIN (BEAKER) (test ogkj=941) 13.3 GM/DL 13.7-17.5 HEMATOCRIT (BEAKER) (test zwxd=513) 39.1 % 40.1-51.0 MEAN CORPUSCULAR VOLUME (BEAKER) (test htrj=250) 101.0 fL 79.0-92.2 MEAN CORPUSCULAR HEMOGLOBIN (BEAKER) (test 34.4 pg 25.7-32.2 pagi=703) MEAN CORPUSCULAR HEMOGLOBIN CONC (BEAKER) (test 34.0 GM/DL 32.3-36.5 smlp=667) RED CELL DISTRIBUTION WIDTH (BEAKER) (test 12.1 % 11.6-14.4 palf=929) PLATELET COUNT (BEAKER) (test oyxn=524) 105 K/CU MM 150-450 MEAN PLATELET VOLUME (BEAKER) (test trvq=633) 10.4 fL 9.4-12.4 NUCLEATED RED BLOOD CELLS (BEAKER) (test 0 /100 WBC 0-0 admx=690) NEUTROPHILS RELATIVE PERCENT (BEAKER) (test 74 % uzyk=153) LYMPHOCYTES RELATIVE PERCENT (BEAKER) (test 14 % iyev=111) MONOCYTES RELATIVE PERCENT (BEAKER) (test 10 % nlhv=676) EOSINOPHILS RELATIVE PERCENT (BEAKER) (test 1 % gcip=423) BASOPHILS RELATIVE PERCENT (BEAKER) (test 1 % pdxk=560) NEUTROPHILS ABSOLUTE COUNT (BEAKER) (test 4.52 K/ L 1.78-5.38 gguf=881) LYMPHOCYTES ABSOLUTE COUNT (BEAKER) (test 0.84 K/ L 1.32-3.57 twwh=174) MONOCYTES ABSOLUTE COUNT (BEAKER) (test 0.62 K/ L 0.30-0.82 cijy=575) EOSINOPHILS ABSOLUTE COUNT (BEAKER) (test 0.06 K/ L 0.04-0.54 hkys=417) BASOPHILS ABSOLUTE COUNT (BEAKER) (test 0.03 K/ L 0.01-0.08 hetq=811) IMMATURE GRANULOCYTES-RELATIVE PERCENT (BEAKER) 0 % 0-1 (test kywl=4176) [id number] 01:32:00 Test Item Value Reference Range Comments PROCALCITONIN (BEAKER) (test jgpe=6480) 0.48 ng/mL <0.05 SEPSIS RISK (ng/mL)Low: 0.05-0.50Intermediate: 0.51-2.00High: & gt;=2.01BASIC METABOLIC [id number] 00:58:00 Test Item Value Reference Range Comments SODIUM (BEAKER) (test 135 meq/L 136-145 kidl=740) POTASSIUM (BEAKER) (test 3.4 meq/L 3.5-5.1 nnnr=493) CHLORIDE (BEAKER) (test 104 meq/L 98-107 xehe=179) CO2 (BEAKER) (test 22 meq/L 22-29 zjmj=157) BLOOD UREA NITROGEN 7 mg/dL 7-21 (BEAKER) (test ilgz=949) CREATININE (BEAKER) (test 0.55 mg/dL 0.57-1.25 uhzs=748) GLUCOSE RANDOM (BEAKER) 113 mg/dL 70-105 (test qabs=743) CALCIUM (BEAKER) (test 8.4 mg/dL 8.4-10.2 wopa=770) EGFR (BEAKER) (test 174 mL/min/1.73 sq m ESTIMATED GFR IS NOT hsmq=7693) ACCURATE CREATININE CLEARANCE IN PREDICTING GLOMERULAR FILTRATION RATE. ESTIMATED GFR IS NOT APPLICABLE FOR DIALYSIS PATIENTS. [id number] 00:57:00 Test Item Value Reference Range Comments MAGNESIUM (BEAKER) (test yfxq=228) 1.5 mg/dL 1.6-2.6 LACTIC ACID, [id number] 00:37:00 Test Item Value Reference Range Comments LACTATE BLOOD VENOUS (2) 0.7 mmol/L 0.5-2.2 Specimen moderately hemolyzed (BEAKER) (test fxwm=3043) POCT-GLUCOSE [id number] 00:25:00 Test Item Value Reference Range Comments POC-GLUCOSE METER (BEAKER) 101 mg/dL 70-110 TESTED AT [address] (test ujcw=6468) [facility] [address] POCT-GLUCOSE [id number] 18:32:00 Test Item Value Reference Range Comments POC-GLUCOSE METER (BEAKER) 76 mg/dL 70-110 TESTED AT [address] (test ypji=8087) [facility] [address] [id number] 15:15:00 Test Item Value Reference Range Comments POTASSIUM (BEAKER) (test zzbt=319) 3.4 meq/L 3.5-5.1 [id number] 15:15:00 Test Item Value Reference Range Comments MAGNESIUM (GALEN) (test atdy=901) 2.1 mg/dL 1.6-2.6 CT, [id number] 12:38:00FINAL REPORT CT abdomen with and without [...] Verified Date/Time: 09/29/2018 12:38:07 Reading Location : [facility] B1 [id number] Ortho Consult Reading Room POCT-GLUCOSE [id number] 11:49:00 Test Item Value Reference Range Comments POC-GLUCOSE METER (BEAKER) 83 mg/dL 70-110 TESTED AT [facility] [address] [facility] (test kdpv=2598) [facility] [address] [id number] 10:49:00 Test Item Value Reference Range Comments TRIGLYCERIDES (BEAKER) (test 71 mg/dL Specimen slightly hemolyzed xaxl=924) TRIGLYCERIDE REFERENCE RANGELow Risk <150Borderline Risk 150-199High Risk 200-499Very High Risk>=[id number] 05:09:00 Test Item Value Reference Range Comments LIPASE (BEAKER) (test atym=477) > U/L 8-78 [id number] 04:35:00 Test Item Value Reference Range Comments MAGNESIUM (BEAKER) (test 1.6 mg/dL 1.6-2.6 Specimen slightly hemolyzed rinm=129) [id number] 04:35:00 Test Item Value Reference Range Comments PHOSPHORUS (BEAKER) (test 3.2 mg/dL 2.3-4.7 Specimen slightly hemolyzed gpjt=423) COMPREHENSIVE METABOLIC [id number] 04:35:00 Test Item Value Reference Range Comments TOTAL PROTEIN (BEAKER) 6.8 gm/dL 6.0-8.3 Specimen slightly (test zkxr=715) hemolyzed ALBUMIN (BEAKER) (test 3.8 g/dL 3.5-5.0 Specimen slightly brrk=0296) hemolyzed ALKALINE PHOSPHATASE 130 U/L 40-150 (BEAKER) (test iqpi=585) BILIRUBIN TOTAL (BEAKER) 1.7 mg/dL 0.2-1.2 Specimen slightly (test tlkk=866) hemolyzed SODIUM (BEAKER) (test 138 meq/L 136-145 uaqg=046) POTASSIUM (BEAKER) (test 3.7 meq/L 3.5-5.1 Specimen slightly vaye=190) hemolyzed CHLORIDE (BEAKER) (test 103 meq/L 98-107 jeua=299) CO2 (BEAKER) (test 17 meq/L 22-29 yfmm=074) BLOOD UREA NITROGEN 9 mg/dL 7-21 (BEAKER) (test rjwr=422) CREATININE (BEAKER) (test 0.65 mg/dL 0.57-1.25 Specimen slightly okzo=756) hemolyzed GLUCOSE RANDOM (BEAKER) 103 mg/dL 70-105 (test sxka=144) CALCIUM (BEAKER) (test 8.7 mg/dL 8.4-10.2 zmxj=664) AST (SGOT) (BEAKER) (test 151 U/L 5-34 Specimen slightly hsbd=074) hemolyzed ALT (SGPT) (BEAKER) (test 143 U/L 6-55 Specimen slightly dmzc=760) hemolyzed EGFR (BEAKER) (test 143 mL/min/1.73 sq ESTIMATED GFR IS NOT bong=8900) m ACCURATE CREATININE CLEARANCE IN PREDICTING GLOMERULAR FILTRATION RATE. ESTIMATED GFR IS NOT APPLICABLE FOR DIALYSIS PATIENTS. PROTHROMBIN [id number] 04:34:00 Test Item Value Reference Range Comments PROTIME (BEAKER) (test cscl=167) 14.6 seconds 11.7-14.7 INR (BEAKER) (test nofi=197) 1.1 <=5.9 RECOMMENDED COUMADIN/WARFARIN INR THERAPY RANGESSTANDARD DOSE: 2.0 - 3.0 Includes: PROPHYLAXIS forvenous thrombosis, systemic embolization; TREATMENT for venous thrombosis and/or pulmonary embolus.HIGH RISK: Target INR is 2.5-3.5 for patients with mechanical heart valves.CBC W/PLT COUNT & AUTO [id number] 04:09:00 Test Item Value Reference Range Comments WHITE BLOOD CELL COUNT (BEAKER) (test ipnv=031) 6.2 K/ L 3.5-10.5 RED BLOOD CELL COUNT (BEAKER) (test xggd=184) 4.33 M/ L 4.63-6.08 HEMOGLOBIN (BEAKER) (test tdas=778) 15.0 GM/DL 13.7-17.5 HEMATOCRIT (BEAKER) (test pjxo=502) 43.2 % 40.1-51.0 MEAN CORPUSCULAR VOLUME (BEAKER) (test nwve=775) 99.8 fL 79.0-92.2 MEAN CORPUSCULAR HEMOGLOBIN (BEAKER) (test 34.6 pg 25.7-32.2 yogb=044) MEAN CORPUSCULAR HEMOGLOBIN CONC (BEAKER) (test 34.7 GM/DL 32.3-36.5 jsme=280) RED CELL DISTRIBUTION WIDTH (BEAKER) (test 12.4 % 11.6-14.4 jspz=921) PLATELET COUNT (BEAKER) (test hnky=243) 160 K/CU MM 150-450 MEAN PLATELET VOLUME (BEAKER) (test ikcw=877) 10.4 fL 9.4-12.4 NUCLEATED RED BLOOD CELLS (BEAKER) (test 0 /100 WBC 0-0 mvzt=647) NEUTROPHILS RELATIVE PERCENT (BEAKER) (test 81 % ocbe=132) LYMPHOCYTES RELATIVE PERCENT (BEAKER) (test 7 % attm=847) MONOCYTES RELATIVE PERCENT (BEAKER) (test 10 % jkao=812) EOSINOPHILS RELATIVE PERCENT (BEAKER) (test 0 % yzfg=560) BASOPHILS RELATIVE PERCENT (BEAKER) (test 1 % heyz=403) NEUTROPHILS ABSOLUTE COUNT (BEAKER) (test 5.01 K/ L 1.78-5.38 bwtu=498) LYMPHOCYTES ABSOLUTE COUNT (BEAKER) (test 0.44 K/ L 1.32-3.57 lsrn=474) MONOCYTES ABSOLUTE COUNT (BEAKER) (test 0.62 K/ L 0.30-0.82 gean=251) EOSINOPHILS ABSOLUTE COUNT (BEAKER) (test 0.01 K/ L 0.04-0.54 twjx=275) BASOPHILS ABSOLUTE COUNT (BEAKER) (test 0.03 K/ L 0.01-0.08 hgnm=544) IMMATURE GRANULOCYTES-RELATIVE PERCENT (BEAKER) 1 % 0-1 (test dpuf=8532)
--- NOTE | 2019-02-18 20:36 | RAD REPORT ---
EXAM DESCRIPTION: US - Abdomen Exam Limited - 02/18/2019 8:23 pm CLINICAL HISTORY: Abdominal pain, suspected cholecystitis COMPARISON: CT study December 10, 2018 FINDINGS: Gallbladder size is normal. No gallstones are identified within the lumen. No measurable q uantity of sludge in the lumen. Edematous gallbladder wall thickening is present. Patient has a very prominent fatty infiltration pattern of the liver. Common bile duct is poorly visualized. Intrahepati c biliary tree dilatation is not suspected. IMPRESSION: No gallstones are seen and no measurable quantity of sludge. Prominent edematous gallbladder wall thickening. Acalculous cholecystitis is possible. Poor visualization of the common bile duct. No accurate assessment for any duct stone or duct dilatat ion can be made. Prominent fatty infiltration of the liver.
[2019-02-18 20:58] LABS: Absolute Lymphocytes (CBC) 1.8 K/uL (0.7-4.9); Basophils % 1.4 % (0-1.3); Hematocrit 34.2 % (39.6-49.0); Lymphocytes % 28.3 % (15.3-44.8); MPV 8.6 fL (7.6-11.3); RBC Red Blood Cell Count 3.28 M/uL (4.33-5.43)
[2019-02-18] MEDS ORDERED: MEPERIDINE HCL 25 MG/0.5 ML ONE (21:11)
[2019-02-18 21:25] LABS: ALT/SGPT 89 U/L (12-78); AST/SGOT 276 U/L (15-37); Albumin 2.3 g/dL (3.4-5.0); Alkaline Phosphatase 569 U/L (45-117); BUN Blood Urea Nitrogen 5 mg/dL (7-18); Bicarbonate 24 mmol/L (21-32); Bilirubin Total 1.2 mg/dL (0.2-1.0); Glucose Level 93 mg/dL (74-106); Lipase 886 U/L (73-393); Protein, Total 6.7 g/dL (6.4-8.2); Sodium Level 143 mmol/L (136-145)
[2019-02-18 21:28] LABS: Potassium 2.8 mmol/L (3.5-5.1)
[2019-02-18 21:29] LABS: Anisocytosis 1+; Blood Morphology Comment NOTED (NOT SEEN); Platelet Estimate ADEQ; Target Cells 2+; Urine White Blood Cell Casts OK
[2019-02-18 23:29] LABS: Urine Blood 1+ (NEG); Urine Glucose NEGATIVE (NEG); Urine Protein NEGATIVE (NEG)
--- NOTE | 2019-02-18 23:41 | ER ---
Nurse's Notes [facility] Name: Jonathan Gutierrez Age: 33 yrs Sex: Male : 1985 Arrival Date: 02/18/2019 Time: 20:03 Bed 26 Private MD: Diagnosis: Acute pancreatitis;Ascites Presentation: 02/18 20:03 Presenting complaint: EMS states: patient complains of abdominal pain and distention, mg2 bipedal edema and vomiting for the last 4 hours. history of pancreatitis, last drink was 5 days ago. was discharged from [facility] 3 days ago for the same problem. lasix 40 mg given at 1955. Transition of care: patient was not received from another setting of care. Onset of symptoms was February 18, 2019. Risk Assessment: Do you want to hurt yourself or someone else? Patient reports no desire to harm self or others. Initial Sepsis Screen: Does the patient meet any 2 criteria? No. Patient's initial sepsis screen is negative. Does the patient have a suspected source of infection? No. Patient's initial sepsis screen is negative. Care prior to arrival: None. 20:03 Method Of Arrival: EMS: [facility] mg2 20:03 Acuity: NEO 3 mg2 Historical: - Allergies: 02/19 00:45 No Known Allergies; mg2 - Home Meds: 02/18 20:30 Thiamine Oral [Active]; folic acid Oral [Active]; mg2 - PMHx: 20:30 etoh abuse; Hypertension; liver "spot"; Pancreatitis; mg2 - PSHx: 20:30 Tonsillectomy; mg2 - Immunization history:: Flu vaccine is up to date. - Social history:: Smoking status: Patient uses tobacco products, smokes one-half pack cigarettes per day, Patient uses alcohol, last drink was 5 days ago. Patient/guardian denies using street drugs. - Ebola Screening: : No symptoms or risks identified at this time. - Family history:: not pertinent. - Hospitalizations: : Patient was recently seen at [facility]. Screenin:31 Abuse screen: Denies threats or abuse. Denies injuries from another. Nutritional mg2 screening: No deficits noted. Tuberculosis screening: No symptoms or risk factors identified. Fall Risk IV access (20 points). Assessment: 21:17 General: Appears in no apparent distress. comfortable, Behavior is calm, cooperative. mg2 Pain: Complains of pain in abdomen Pain does not radiate. Pain currently is 8 out of 10 on a pain scale. Quality of pain is described as aching, Pain began gradually, Is intermittent. Neuro: Level of Consciousness is awake, alert, obeys commands, Oriented to person, place, time, situation. Cardiovascular: Capillary refill < 3 seconds Patient's skin is warm and dry. Respiratory: Airway is patent Respiratory effort is even, unlabored, Respiratory pattern is regular, symmetrical. GI: Reports lower abdominal pain, upper abdominal pain, diarrhea, vomiting. GI: Abdomen is distended. : No signs and/or symptoms were reported regarding the genitourinary system. EENT: No signs and/or symptoms were reported regarding the EENT system. Derm: Skin is intact, is healthy with good turgor, Skin is pink, warm \\T\\ dry. normal. Musculoskeletal: No signs and/or symptoms reported regarding the musculoskeletal system. 22:24 Reassessment: critical lab test k-2.8 mmol relayed by biology laboratory assistant dr karlie Grissom made mg2 aware. Vital Signs: 20:05 Pulse 125; Resp 18; Temp 98.2; Pulse Ox 100% on R/A; Weight 74.84 kg; Height 5 ft. 11 mg2 in. (180.34 cm); Pain 8/10; 21:17 BP 126 / 86; Pulse 130; Resp 18; Pulse Ox 100% on R/A; mg2 23:08 BP 126 / 74; Pulse 96; Resp 18; Pulse Ox 100% on R/A; mg2 20:05 Body Mass Index 23.01 (74.84 kg, 180.34 cm) mg2 ED Course: 20:03 Patient arrived in ED. mg2 20:03 Trenton Lubin MD is Attending Physician. rn 20:05 Triage completed. mg2 20:10 Radiology exam delayed due to lab results not completed at this time. (BUN/Creatinine) nj IV insertion attempt and/or patient not having appropriate IV at this time. 20:23 US Abdomen Limited In Process Unspecified. EDMS 20:26 Cheikh Jordan, RN is Primary Nurse. mg2 20:28 XRAY Chest (1 view) In Process Unspecified. EDMS 20:29 Radiology exam delayed due to lab results not completed at this time. (BUN/Creatinine). nj 20:31 Arm band placed on. mg2 20:31 Patient has correct armband on for positive identification. mg2 20:55 No provider procedures requiring assistance completed. Maintain EMS IV. Dressing mg2 intact. Good blood return noted. Site clean \\T\\ dry. Gauge \\T\\ site: 18 \\T\\ RAC. 21:[address] via wheelchair. nj 21:56 CT Abd/Pelvis - IV Contrast Only In Process Unspecified. EDMS 23:38 Jayme Lam DO is Hospitalizing Provider. rn 02/19 00:51 Patient admitted, IV remains in place. mg2 Administered Medications: 02/18 21:11 Drug: Demerol 25 mg Route: IVP; Site: right antecubital; mg2 22:25 Follow up: Response: No adverse reaction; Marked relief of symptoms mg2 Outcome: 23:38 Decision to Hospitalize by Provider. rn 02/19 00:52 Admitted to Med/surg accompanied by tech, via wheelchair, room 211, with chart, Report mg2 called to AMALIA Marin Condition: stable Instructed on the need for admit, Demonstrated understanding of instructions. 00:55 Patient left the ED. mg2 Signatures: Dispatcher [employer] EDMS Trenton Lubin MD MD rn Jordan, Nathan nj Gardose, Michele, RN RN mg2 Corrections: (The following items were deleted from the chart) 00:45 02/18 20:30 Allergies: Morphine; hallucinations; mg2 mg2
--- NOTE | 2019-02-18 23:41 | EDPHYS ---
Physician Documentation [facility] Name: Jonathan Gutierrez Age: 33 yrs Sex: Male : 1985 Arrival Date: 02/18/2019 Time: 20:03 Bed 26 Private MD: ED Physician Trenton Lubin HPI: 02/18 20:47 This 33 yrs old Male presents to ER via EMS with complaints of abd pain, rn edema. 20:47 REports swelling since leaving hospital recently, + upper and left abd pain, began a rn few hours ago, no fever. Reports sent to [facility] for anemia and possible pancreatitis, no procedures performed, given blood and a lot of fluids. At first thought they might have to remove gallbladder but decided not needed and let go. Reports was feeling fine until 5 hours ago. . Onset: The symptoms/episode began/occurred today. Severity of symptoms: At their worst the symptoms were mild in the emergency department the symptoms are unchanged. The patient has experienced similar episodes in the past. The patient has been recently seen by a physician:. Historical: - Allergies: 02/19 00:45 No Known Allergies; mg2 - Home Meds: 02/18 20:30 Thiamine Oral [Active]; folic acid Oral [Active]; mg2 - PMHx: 20:30 etoh abuse; Hypertension; liver "spot"; Pancreatitis; mg2 - PSHx: 20:30 Tonsillectomy; mg2 - Immunization history:: Flu vaccine is up to date. - Social history:: Smoking status: Patient uses tobacco products, smokes one-half pack cigarettes per day, Patient uses alcohol, last drink was 5 days ago. Patient/guardian denies using street drugs. - Ebola Screening: : No symptoms or risks identified at this time. - Family history:: not pertinent. - Hospitalizations: : Patient was recently seen at [facility]. ROS: 20:47 Constitutional: Negative for fever, chills, and weight loss, Eyes: Negative for injury, rn pain, redness, and discharge, Neck: Negative for injury, pain, and swelling, Cardiovascular: Negative for chest pain, palpitations, + edema Respiratory: Negative for shortness of breath, cough, wheezing, and pleuritic chest pain, Abdomen/GI: + abd pain, negative for vomiting, no diarrhea MS/Extremity: Negative for injury and deformity, Skin: Negative for injury, rash, and discoloration, Neuro: Negative for headache, weakness, numbness, tingling, and seizure. Exam: 20:47 Constitutional: This is a well developed, well nourished patient who is awake, alert, rn and in no acute distress. Head/Face: Normocephalic, atraumatic. Eyes: Pupils equal round and reactive to light, extra-ocular motions intact. Lids and lashes normal. Conjunctiva and sclera are non-icteric and not injected. Cornea within normal limits. Periorbital areas with no swelling, redness, or edema. ENT: MMM Cardiovascular: tachycardic, regular, no murmur Respiratory: Lungs have equal breath sounds bilaterally, clear to auscultation. No increased work of breathing, no retractions or nasal flaring. Abdomen/GI: soft, mild epigastric and left sided tenderness Skin: Warm, dry, and no evidence of cellulitis. MS/ Extremity: Pulses equal, no cyanosis. Neurovascular intact. Full, normal range of motion. Equal circumference. 1+ bilateral lower ext edema Vital Signs: 20:05 Pulse 125; Resp 18; Temp 98.2; Pulse Ox 100% on R/A; Weight 74.84 kg; Height 5 ft. 11 mg2 in. (180.34 cm); Pain 8/10; 21:17 BP 126 / 86; Pulse 130; Resp 18; Pulse Ox 100% on R/A; mg2 23:08 BP 126 / 74; Pulse 96; Resp 18; Pulse Ox 100% on R/A; mg2 20:05 Body Mass Index 23.01 (74.84 kg, 180.34 cm) mg2 MDM: 20:03 Patient medically screened. rn 23:14 Differential Diagnosis ascites, acalculous cholecystitis, acute pancreatitis. Data rn reviewed: vital signs, nurses notes. 23:35 Counseling: I had a detailed discussion with the patient and/or guardian regarding: the rn historical points, exam findings, and any diagnostic results supporting the discharge/admit diagnosis, lab results, radiology results, the need for further work-up and treatment in the hospital. Response to treatment: the patient's symptoms have mildly improved after treatment, and as a result, I will admit patient. ED course: Admitted for acute pancreatitis, ascites, edema. Gallbladder wall thickened on U/S but most likely from ascites, no focal RUQ pain, no fever, and seems same reasoning is why they didn't take gallbladder at [facility] recently. . 23:37 Admission orders: after a detailed discussion of the patient's condition and case, the rn quality orders are written by me. 02/18 20:05 Order name: Basic Metabolic Panel; Complete Time: 21:32 rn 02/18 20:05 Order name: CBC with Diff; Complete Time: 21:32 rn 02/18 20:05 Order name: Hepatic Function; Complete Time: 21:32 rn 02/18 20:05 Order name: Lipase; Complete Time: 21:32 rn 02/18 21:07 Order name: CBC Smear Scan; Complete Time: 21:32 EDMS 02/18 22:41 Order name: Urine Culture rn 02/18 20:05 Order name: IV Saline Lock; Complete Time: 20:55 rn 02/18 20:05 Order name: Labs collected and sent; Complete Time: 20:55 rn 02/18 20:05 Order name: CT Abd/Pelvis - IV Contrast Only rn 02/18 20:05 Order name: US Abdomen Limited; Complete Time: 20:46 rn 02/18 20:05 Order name: XRAY Chest (1 view) rn 02/18 22:41 Order name: Urine Dipstick-Ancillary (obtain specimen); Complete Time: 23:04 rn 02/18 22:57 Order name: Urine Dipstick--Ancillary (enter results); Complete Time: 23:32 mw2 Administered Medications: 21:11 Drug: Demerol 25 mg Route: IVP; Site: right antecubital; mg2 22:25 Follow up: Response: No adverse reaction; Marked relief of symptoms mg2 Disposition: 02/18/19 23:38 Hospitalization ordered by Jayme Lam for Inpatient Admission. Preliminary diagnosis are Acute pancreatitis, Ascites. - Bed requested for Telemetry/MedSurg (Inpatient). - Status is Inpatient Admission. mg2 - Condition is Stable. - Problem is new. - Symptoms have improved. UTI on Admission? No Signatures: Dispatcher [employer] EDMS Joselyn Lal RN RN mw Nieto, Roman, MD MD rn Gardose, Michele, RN RN mg2 Corrections: (The following items were deleted from the chart) 02/19 00:04 02/18 23:38 Hospitalization Ordered by Jayme Lam DO for Inpatient Admission. mw Preliminary diagnosis is Acute pancreatitis; Ascites. Bed requested for Telemetry/MedSurg (Inpatient). Status is Inpatient Admission. Condition is Stable. Problem is new. Symptoms have improved. UTI on Admission? No. rn 02/19 00:45 02/18 20:30 Allergies: Morphine; hallucinations; mg2 mg2 02/19 00:55 00:04 02/18/2019 23:38 Hospitalization Ordered by Jayme Lam DO for Inpatient mg2 Admission. Preliminary diagnosis is Acute pancreatitis; Ascites. Bed requested for Telemetry/MedSurg (Inpatient). Status is Inpatient Admission. Condition is Stable. Problem is new. Symptoms have improved. UTI on Admission? No. mw
[2019-02-19] MEDS ORDERED: ONDANSETRON 4 MG/2 ML VIAL IV PRN (00:33)
[2019-02-19] MEDS ORDERED: ACETAMINOPHEN 500 MG TAB PO PRN (00:33)
[2019-02-19] MEDS: MORPHINE 2 MG/ML SYR IV PRN ×4 (00:50→20:10)
--- NOTE | 2019-02-19 00:51 | P.HP ---
Certification for Inpatient Patient admitted to: Inpatient With expected LOS: >2 Midnights Patient will require the following post-hospital care: None Practitioner: I am a practitioner with admitting privileges, knowledge of patient current condition, hospital course, and medical plan of care. Services: Services provided to patient in accordance with Admission requirements found in Title 42 Section 412.3 of the Code of Federal Regulations Patient History Date of Service: 02/19/19 Primary Care Provider: none Reason for admission: Epigastric abdominal pain with nausea History of Present Illness: 33 yo CM presented to the ER with epigastric abdominal pain with nausea and vomiting. He reports a history of fatty liver and chronic pancreatitis. He also admits to alcohol use and tobacco use. He presented to the ER with epigastric pain. It started this weekend and got worse. He had nausea and vomiting. He also reported some edema to the lower ext. No fever or chills. His last alcohol use was 5 days ago. He smokes a great deal. He does not report IV drug use. In the ER, he was found to have pancreatitis on CT scan. His Lipase was elevated. Free commode potassium 2.8, creatinine within normal range. Glucose 93. Total bilirubin 1.2, ALT of 89, AST of 276. Alk-phos 569. Lipase 880 abdominal ultrasound showed fatty liver. Patient was admitted for further evaluation and treatment. Patient currently stable in the emergency room. Patient reports last use of alcohol 5 days ago. Allergies NKDA Allergy (Uncoded 07/11/15 17:30) Unknown Home medications list reviewed: Yes - Past Medical/Surgical History Diabetic: No -: Chronic pancreatitis -: Fatty liver -: Alcohol abuse -: Tobacco abuse Past Surgical History: Patient denies surgical history Psychosocial/ Personal History: Patient is single - Family History Family History: Reviewed- Non-Contributory - Social History Smoking Status: Heavy Tobacco smoker (>10 cigarettes/day) Counseled patient to stop smoking for: less than 10 minutes Smoking therapy provided: Yes Patient receptive to therapy: Yes Alcohol use: Yes CD- Drugs: No Caffeine use: Yes Place of Residence: Home Review of Systems General: As per HPI Eyes: Unremarkable ENT: Unremarkable Respiratory: Unremarkable Cardiovascular: Unremarkable Gastrointestinal: Nausea, Abdominal Pain, As per HPI Genitourinary: Unremarkable Musculoskeletal: Pedal edema, As per HPI Integumentary: Unremarkable Neurological: Unremarkable Lymphatics: Unremarkable Physical Examination - Physical Exam General: Alert, In no apparent distress, Oriented x3, Cooperative HEENT: Atraumatic, Normocephalic, PERRLA, Other (Dry mucous membranes) Neck: Supple, No Thyromegaly Respiratory: Clear to auscultation bilaterally, Normal air movement Cardiovascular: Normal pulses, Regular rate/rhythm Gastrointestinal: Normal bowel sounds, Soft and benign, Non-distended, No masses , No rebound, No guarding, Tenderness (Epigastric abdominal pain) Musculoskeletal: No erythema, No tenderness, No warmth Integumentary: No erythema, No warmth, No cyanosis, Tenderness/swelling (1+ pitting edema to the lower extremities bilateral) Neurological: Normal speech, Normal strength at 5/5 x4 extr, Normal tone, Normal affect - Studies Laboratory Data (last 24 hrs) 02/18/19 20:50: WBC 6.3 D, Hgb 11.1 L D, Hct 34.2 L D, Plt Count 263 D 02/18/19 20:50: Sodium 143, Potassium 2.8 L*, BUN 5 L, Creatinine 0.47 L, Glucose 93, Total Bilirubin 1.2 H, AST 276 H, ALT 89 H, Alkaline Phosphatase 569 H, Lipase 886 H Assessment and Plan - Plan Impression: Epigastric abdominal pain with nausea vomiting secondary to acute on chronic alcoholic pancreatitis Edema to the lower extremity likely related to possible underlying alcoholic cirrhosis Hypokalemia Elevated liver function secondary to above Alcohol abuse Tobacco abuse Plan: Epigastric abdominal pain with nausea vomiting secondary to acute on chronic alcoholic pancreatitis: Patient will be admitted for further evaluation and treatment. Will keep the patient NPO. Will start low-dose IV fluids but provide Lasix due to edema. Will provide IV pain medication. Provide Pepcid for GERD prophylaxis. Will review final results of CT scan and abdominal ultrasound. GI consulted to further evaluate and address. Anticipate improvement. Diet can be adjusted once pain resolved. Education on pancreatitis will be addressed in detail. Will check fasting lipid panel. Will also check urine drug screen. Will provide DVT prophylaxis-Lovenox. Daytime hospitalist team will continue his care. Likely discharge in the next 3 -4 days pending clinical improvement. Edema to the lower extremity likely related to possible underlying alcoholic cirrhosis: Will provide IV Lasix. Will monitor closely. This may be further addressed by GI. Alcohol cessation will need to be encouraged. Hypokalemia: Will continue with potassium replacement. Will monitor and adjust appropriately. Elevated liver function secondary to above: Will monitor liver functions closely. Await further recommendations from GI. No indication of biliary disease. Alcohol abuse: Alcohol cessation education will be provided. Will provide banana bag. Tobacco abuse: Patient may require nicotine patch. Continue cessation education. Discharge Plan: Home Plan to discharge in: Greater than 2 days - Advance Directives Does patient have a Living Will: No Does patient have a Durable POA for Healthcare: No - Code Status/Comfort Care Code Status Assessed: Yes (Patient is full code) Time Spent Managing Pts Care (In Minutes): 55
[2019-02-19] MEDS ORDERED: D5 0.9 NS 1,000 ML IV SCH (01:00)
[2019-02-19] MEDS: KCL 20 MEQ/100 mL IVPB 20 MEQ/100 ML BAG IV SCH ×3 (02:59→07:41)
[2019-02-19 03:37] LABS: Barbiturates NEGATIVE (NEGATIVE); Benzodiazepines POSITIVE (NEGATIVE); Cocaine NEGATIVE (NEGATIVE); METHAMPHETAM NEGATIVE (NEGATIVE); Methadone NEGATIVE (NEGATIVE); Opiates POSITIVE (NEGATIVE); Phencyclidine NEGATIVE (NEGATIVE); THC Cannibis NEGATIVE (NEGATIVE)
[2019-02-19 03:43] LABS: Urine Appearance CLEAR; Urine Bilirubin NEGATIVE (NEG); Urine Blood 3+ (NEG); Urine Color YELLOW; Urine Glucose NEGATIVE (NEG); Urine Protein NEGATIVE (NEG); Urine Specific Gravity >=1.030 (1.005-1.030); Urine Urobilinogen 0.2 mg/dL (0.2-1.0)
[2019-02-19 03:47] LABS: Urine Microscopic Reflex ORDER UMIC
[2019-02-19 04:46] LABS: Urine Bacteria <20 /HPF (NONE SEEN); Urine Culture Reflex Order NOT NEEDED; Urine RBC >50 /HPF (NONE SEEN)
[2019-02-19 06:24] LABS: Magnesium 1.3 mg/dL (1.8-2.4)
[2019-02-19] MEDS ORDERED: Magnesium Sulfate 2gm IVPB 2 G/50 ML BAG IV ONE (07:00)
--- NOTE | 2019-02-19 08:30 | RAD REPORT ---
EXAM DESCRIPTION: RAD - Chest Single View - 02/18/2019 8:28 pm CLINICAL HISTORY: Abdominal pain, abdominal distention COMPARISON: February 12 TECHNIQUE: AP portable chest image was obtained 2030 hours . FINDINGS: Lung volumes are low similar to comparison. No focal lung parenchymal process. Lung markin gs match comparison. Heart and vasculature are normal. No measurable pleural effusion and no pneumoth orax. No acute bony abnormality seen. No acute aortic findings suspected. IMPRESSION: No acute cardiopulmonary process.
[2019-02-19] MEDS: FAMOTIDINE 20 MG/2 ML VIAL IV SCH ×2 (09:02→20:10)
[2019-02-19] MEDS: ENOXAPARIN 40 MG/0.4 ML SQ SCH (09:02)
[2019-02-19] MEDS: FUROSEMIDE 20 MG/ 2ML VIAL IV SCH ×2 (09:02→16:13)
[2019-02-19] MEDS: NICOTINE 21 MG/PAT TD SCH (09:03)
[2019-02-19] MEDS: FOLIC ACID 1 MG, MULTIVITAMINS INJ 10 ML, THIAMINE HCL 100 MG in NA CHLORIDE 0.9% 1,000 ML IV SCH (10:18)
--- NOTE | 2019-02-19 11:50 | RAD REPORT ---
EXAM DESCRIPTION: CT - Abdomen Pelvis W Contrast - 02/19/2019 2:03 am CLINICAL HISTORY: Abdominal pain. COMPARISON: 12/10/2018 TECHNIQUE: CT scan of the abdomen and pelvis was performed with IV contrast. This exam was performed according to our departmental dose-optimization program, which includes automated exposure control, adjustment of the mA and/or kV according to patient size and/or use of iterative reconstruction techn ique. FINDINGS: The lung bases are clear. No pleural or pericardial effusions. There is marked hepatic bob atosis. Splenomegaly is also present with mild free fluid. There is diffuse inflammatory stranding an d free fluid surrounding the pancreas consistent with pancreatitis. The pancreatic duct is dilated up to 1.1 cm. There are multiple areas of linear hypodensity extending to the left and right renal cortices which m ay represent polynephritis. Multiple nonobstructing stones are seen in both kidneys. No hydronephrosi s. There is diffuse wall thickening of the ascending and transverse colon which may be reactive to surro unding inflammation. The appendix is not well visualized. There is a large amount of abdominopelvic a scites. No free air however. The aorta is normal caliber. Bones are intact. IMPRESSION: 1. Findings consistent with acute pancreatitis. Correlate with lab values. 2. Findings which may also represent acute bilateral pyelonephritis. Correlate with urinalysis. 3. Large amount of abdominopelvic ascites. 4. Wall thickening of the proximal colon which may be reactive. Electronically signed by: Moris Hernandez MD 02/18/2019 10:23 PM CDT Due to temporary technical issues with the PACS/Fluency reporting system, reports are being signed by the in house radiologist as a courtesy to ensure prompt reporting. The interpreting radiologist is f ully responsible for the content of the report.
[2019-02-19 14:24] LABS: Potassium 3.4 mmol/L (3.5-5.1)
[2019-02-19] MEDS: Ringers Lactate 1,000 ML IV SCH (15:00)
[2019-02-19] MEDS ORDERED: POTASSIUM 25 MEQ EFFERV TAB PO ONE (15:33)
[2019-02-19] MEDS: LORazepam 2 MG/ML VIAL IV PRN (15:45)
--- NOTE | 2019-02-19 16:31 | PN ---
Date of Progress Note: 02/19/2019 Subjective: Patient seen and examined. Chart reviewed and case discussed with RN. Patient is still complaining of some pain. He is getting into alcohol withdrawal symptoms with tremors; however, no hallucinations. Patient wanting to eat. I explained to him that he has pancreatitis. Depending on GI, he may be started on a diet later today. Medications List: Reviewed. Physical Examination: Vital Signs: Temperature 98.4, heart rate 86, blood pressure 135/88, respirations 15, O2 98% on room air. GENERAL: Awake, alert, oriented x3, ill-appearing male, appears in some mild distress due to pain. CV: S1, S2. Regular rate and rhythm. Peripheral pulses present. Respiratory: Moving air well bilaterally. No wheezing or stridor. Gastrointestinal: Abdomen is mildly distended. Patient has voluntary guarding. Tenderness to palpation. No rebound tenderness. Hypoactive bowel sounds. Extremities: No clubbing, cyanosis, or edema. Neuro: Cranial nerves 2 through 12 intact grossly. No focal neurological deficit. Speech is normal. Laboratory Data: Magnesium 1.3. Triglycerides 148, cholesterol 164, LDL 120, HDL 14. Lipase 719. UDS positive for opiates and benzodiazepines. Abdominal ultrasound shows no gallstones. Prominent edematous gallbladder wall thickening and calculous cholecystitis are possible. Fatty infiltration of the liver. Poor visualization of the CBD. Assessment And Plan: A 33-year-old male with: 1. Acute pancreatitis secondary to alcohol. 2. Epigastric abdominal pain secondary to pancreatitis. CT scan also shows some possible inflammation of the colon and ultrasound shows possible calculous cholecystitis. 3. Fatty liver infiltration. Imaging studies does not show alcoholic cirrhosis. Patient has been counseled. 4. Hypokalemia. We will replace and monitor. 5. Hypomagnesemia. We will replace and monitor. 6. Elevated liver enzymes secondary to alcohol abuse. 7. Alcohol abuse. Patient is getting into withdrawal effects with tremors. We will continue to monitor using CIWA protocol. Continue multivitamins with banana bag and Ativan p.r.n. for agitation and withdrawal. 8. Nicotine dependence with cigarette smoking. Counseled GI has been consulted. Continue to monitor lipase levels. Start on clear liquids and if continues to improve, we will start on a low-fat diet by a.m. Deep vein thrombosis prophylaxis with Lovenox. SA/MODL Voice ID: [id number] Report ID: [id number] MTDD
[2019-02-20] MEDS: MORPHINE 2 MG/ML SYR IV PRN ×3 (01:33→21:15)
[2019-02-20 05:54] LABS: Absolute Lymphocytes (CBC) 0.8 K/uL (0.7-4.9); Basophils % 1.5 % (0-1.3); Hematocrit 29.2 % (39.6-49.0); Lymphocytes % 20.3 % (15.3-44.8); MPV 9.1 fL (7.6-11.3); RBC Red Blood Cell Count 2.87 M/uL (4.33-5.43)
[2019-02-20 06:17] LABS: ALT/SGPT 69 U/L (12-78); AST/SGOT 206 U/L (15-37); Albumin 2.2 g/dL (3.4-5.0); Alkaline Phosphatase 429 U/L (45-117); BUN Blood Urea Nitrogen 4 mg/dL (7-18); Bicarbonate 31 mmol/L (21-32); Bilirubin Total 1.6 mg/dL (0.2-1.0); Glucose Level 84 mg/dL (74-106); HDL Cholesterol 12 mg/dL (40-60); LDL Cholesterol, Calculated 124 (<130); Lipase 942 U/L (73-393); Magnesium 1.6 mg/dL (1.8-2.4); Potassium 3.4 mmol/L (3.5-5.1); Protein, Total 5.9 g/dL (6.4-8.2); Sodium Level 141 mmol/L (136-145)
[2019-02-20] MEDS: Ringers Lactate 1,000 ML IV SCH ×2 (06:23→11:00)
[2019-02-20] MEDS ORDERED: POTASSIUM 25 MEQ EFFERV TAB PO ONE (06:35)
--- NOTE | 2019-02-20 07:35 | ECHO ---
HEIGHT: 5 ft 11 in WEIGHT: 149 lb 6.4 oz DATE OF STUDY: 02/19/[address]: Maria Luisa Carter MD 2-DIMENSIONAL: YES M.MODE: YES DOPPLER: YES COLOR FLOW: YES TDS: NO PORTABLE: NO DEFINITY: NO BUBBLE STUDY: NO DIAGNOSIS: EDEMA/ ALCOHOLIC CARDIOMYOPATHY CARDIAC HISTORY: CATHERIZATION: NO SURGERY: NO PROSTHETIC VALVE: NO PACEMAKER: NO MEASUREMENTS (cm) DIASTOLIC (NORMALS) SYSTOLIC (NORMALS) IVSd 1.0 (0.6-1.2) LA Diam 3.3 (1.9-4.0) LVEF 70% LVIDd 3.7 (3.5-5.7) LVIDs 2.2 (2.0-3.5) %FS 39% LVPWd 1.1 (0.6-1.2) Ao Diam 3.0 (2.0-3.7) 2 DIMENSIONAL ASSESSMENT: RIGHT ATRIUM: PROMINENT EUSTACHIAN VALVE (NORMAL) LEFT ATRIUM: NORMAL RIGHT VENTRICLE: NORMAL LEFT VENTRICLE: NORMAL TRICUSPID VALVE: NORMAL MITRAL VALVE: NORMAL PULMONIC VALVE: NORMAL AORTIC VALVE: NORMAL PERICARDIAL EFFUSION: NONE AORTIC ROOT: NORMAL LEFT VENTRICULAR WALL MOTION: NORMAL. DOPPLER/COLOR FLOW: PHYSIOLOGIC TRICUSPID REGURGITATION. NORMAL RIGHT VENTRICULAR SYSTOLIC PRESSURE. COMMENTS: NORMAL 2D ECHO WITH DOPPLER TECHNOLOGIST: RAAD ALEXANDER
[2019-02-20] MEDS: ENOXAPARIN 40 MG/0.4 ML SQ SCH (08:46)
[2019-02-20] MEDS: FUROSEMIDE 20 MG/ 2ML VIAL IV SCH ×2 (08:46→16:22)
[2019-02-20] MEDS: FAMOTIDINE 20 MG/2 ML VIAL IV SCH ×2 (08:46→21:00)
[2019-02-20] MEDS: NICOTINE 21 MG/PAT TD SCH (08:47)
[2019-02-20] MEDS ORDERED: MAGNESIUM SULFATE 1 gm IVPB 1 GM/100 ML BAG IV ONE (09:00)
[2019-02-20] MEDS: FOLIC ACID 1 MG, MULTIVITAMINS INJ 10 ML, THIAMINE HCL 100 MG in NA CHLORIDE 0.9% 1,000 ML IV SCH (10:42)
--- NOTE | 2019-02-20 16:59 | PN ---
Date of Progress Note: 02/20/2019 Subjective: Patient seen and examined. Chart reviewed and case discussed with RN. Patient denies a ny significant abdominal pain. Does have some tenderness and some nausea but has not thrown up. Abl e to tolerate his clear liquid diet. Still having some swelling of the ankles. Medications: List reviewed. Physical Examination: Vital Signs: Temperature 98, heart rate 109, blood pressure 141/93, respirations 18, O2 100% on room air. General: Awake, alert, and oriented x3, not in any acute distress. CV: S1, S2. Sinus tachycardia. Peripheral pulses present. Respiratory: Moving air well bilaterally. No wheezing or stridor. No use of accessory muscles. Gastrointestinal: Abdomen is soft. Mild tenderness to palpation. No guarding or rigidity. Some vo luntary guarding is present. No rigidity. Positive bowel sounds. Extremities: No clubbing, cyanosis, or edema. Neurologic: Nonfocal. Laboratory Data: Sodium 141, potassium 3.4, chloride 103, CO2 31, BUN 4, creatinine 0.49, glucose 84 , calcium 7.4, magnesium 1.6, total bilirubin is 1.6, AST 206, ALT 69, alkaline phosphatase 429, albu min 2.2, lipase 942. WBC 4, H and H of 9.7 and 29.2, platelets 224, neutrophils 59%. Blood cultures , no growth to date. Echocardiogram shows EF 70%, physiologic tricuspid regurg. Assessment: A 33-year-old male with: 1.Acute alcoholic pancreatitis. Lipase level is trending up. Patient is tolerating his diet. Gricelda saenz has some nausea and abdominal pain. We will advance as tolerated. Appreciate Dr. Walsh's input. 2.Epigastric abdominal pain secondary to above. 3.Hypokalemia. Replace and monitor. 4.Hypomagnesemia. We will replace and monitor. 5.Elevated liver enzymes secondary to alcohol abuse and fatty liver disease, improving. 6.Alcohol abuse with withdrawal effects, improved with Ativan. Continue using as p.r.n., using CIWA protocol. Continue multivitamins. 7.Nicotine dependence with cigarette smoking, counseled. 8.Fatty liver infiltration. 9.Deep venous thrombosis prophylaxis with Lovenox. 10.Peripheral edema, unclear etiology, may be related to liver dysfunction. Echocardiogram is carlos l with EF of 70%. Doubt alcoholic cardiomyopathy. The patient improved with Lasix. Plan: We will continue to monitor lipase level. Advance diet as tolerated. Follow up with GI. /GABRIELA Voice ID: [id number] Report ID: [id number]
[2019-02-21] MEDS: MORPHINE 2 MG/ML SYR IV PRN ×5 (03:09→23:41)
[2019-02-21] MEDS: Ringers Lactate 1,000 ML IV SCH ×5 (03:16→23:47)
[2019-02-21 06:24] LABS: Basophils % 2.3 % (0-1.3); Hematocrit 34.2 % (39.6-49.0); Lymphocytes % 22.1 % (15.3-44.8); MPV 9.5 fL (7.6-11.3); RBC Red Blood Cell Count 3.34 M/uL (4.33-5.43)
[2019-02-21 06:47] LABS: ALT/SGPT 75 U/L (12-78); AST/SGOT 213 U/L (15-37); Albumin 2.5 g/dL (3.4-5.0); Alkaline Phosphatase 502 U/L (45-117); BUN Blood Urea Nitrogen 2 mg/dL (7-18); Bicarbonate 29 mmol/L (21-32); Bilirubin Total 1.6 mg/dL (0.2-1.0); Glucose Level 75 mg/dL (74-106); Lipase 560 U/L (73-393); Magnesium 1.9 mg/dL (1.8-2.4); Potassium 3.9 mmol/L (3.5-5.1); Protein, Total 7.1 g/dL (6.4-8.2); Sodium Level 140 mmol/L (136-145)
[2019-02-21] MEDS ORDERED: POTASSIUM CL SA 10 MEQ TAB PO ONE (09:00)
[2019-02-21] MEDS: FUROSEMIDE 20 MG/ 2ML VIAL IV SCH ×2 (09:18→16:32)
[2019-02-21] MEDS: FAMOTIDINE 20 MG/2 ML VIAL IV SCH ×2 (09:18→22:22)
[2019-02-21] MEDS: ENOXAPARIN 40 MG/0.4 ML SQ SCH (09:19)
[2019-02-21] MEDS: NICOTINE 21 MG/PAT TD SCH (09:19)
[2019-02-21] MEDS: FOLIC ACID 1 MG, MULTIVITAMINS INJ 10 ML, THIAMINE HCL 100 MG in NA CHLORIDE 0.9% 1,000 ML IV SCH (09:22)
[2019-02-21 13:46] LABS: Urine Appearance CLEAR; Urine Bilirubin NEGATIVE (NEG); Urine Blood NEGATIVE (NEG); Urine Color YELLOW; Urine Glucose NEGATIVE (NEG); Urine Protein NEGATIVE (NEG)
[2019-02-21 13:50] LABS: Urine Microscopic Reflex NO UMIC
--- NOTE | 2019-02-21 14:35 | PN ---
Date of Progress Note: 02/21/2019 Subjective: Patient is seen and examined. Chart reviewed and case discussed with RN. Patient has still not been seen by GI. Patient states he had a rough night last night, seemed to get into some withdrawal effects and had some abdominal pain, but no vomiting. Tolerated his diet. Medications: List reviewed. Physical Examination: Vital Signs: Temperature 98.5, heart rate 94, blood pressure 150/87 respirations 17, O2 at 98% on room air. General: Awake, alert, oriented x3, not in any acute distress. CV: S1, S2. Sinus tachycardia. Peripheral pulses present. Respiratory: Moving air well bilaterally. No wheezing or stridor. Gastrointestinal: Abdomen is soft. Mild tenderness to palpation in the epigastric region. No rebound or guarding. Positive bowel sounds. Extremities: No clubbing, cyanosis, or edema. Neurologic: Nonfocal. Laboratory Data: Sodium 140, potassium 3.9, chloride 104, CO2 of 29, BUN 2, creatinine 0.41, glucose 75, calcium 8.3, magnesium 1.9, AST 213, ALT 75, alkaline phosphatase 502, albumin 2.5, lipase 560. WBC 4.6, H and H of 11.5 and 34.2, platelets 264. Assessment And Plan: A 33-year-old male with: 1. Acute alcoholic pancreatitis. Lipase level is trending down, improving. Patient tolerating his diet. We will advance to GI soft. Still awaiting GI eval. 2. Epigastric abdominal pain secondary to above, improving. Patient still has some tenderness. 3. Hypokalemia. We will replace and monitor. 4. Hypomagnesemia, corrected. We will continue to monitor. 5. Elevated liver enzymes secondary to alcohol abuse and fatty liver disease. AST is still elevated. 6. Alcohol abuse with active withdrawal. We will continue with Ativan p.r.n. using CIWA protocol. Continue with multivitamin. 7. Nicotine dependence with cigarette smoking, counseled. 8. Fatty liver infiltration. 9. Peripheral edema, improving. 10. Deep venous thrombosis prophylaxis with Lovenox. 11. Pyelonephritis. CT shows nonobstructing calculi. UA is negative x2. WBC nl. Advance diet. Continue to trend lipase levels, if improving and no further symptoms, patient will likely be discharged in a.m. SA/MODL Voice ID: [id number] Report ID: [id number] DAMEON
[2019-02-21] MEDS: LORazepam 2 MG/ML VIAL IV PRN (16:58)
[2019-02-21] MEDS ORDERED: LORazepam 2 MG/ML VIAL IV ONE (19:00)
[2019-02-22] MEDS: MORPHINE 2 MG/ML SYR IV PRN ×5 (04:27→21:07)
[2019-02-22 05:32] LABS: Absolute Lymphocytes (CBC) 1.3 K/uL (0.7-4.9); Basophils % 2.1 % (0-1.3); Hematocrit 28.6 % (39.6-49.0); Lymphocytes % 19.2 % (15.3-44.8); MPV 9.3 fL (7.6-11.3); RBC Red Blood Cell Count 2.85 M/uL (4.33-5.43)
[2019-02-22 05:53] LABS: ALT/SGPT 54 U/L (12-78); AST/SGOT 136 U/L (15-37); Albumin 2.1 g/dL (3.4-5.0); Alkaline Phosphatase 365 U/L (45-117); BUN Blood Urea Nitrogen 5 mg/dL (7-18); Bicarbonate 29 mmol/L (21-32); Bilirubin Total 1.5 mg/dL (0.2-1.0); Glucose Level 88 mg/dL (74-106); Magnesium 1.6 mg/dL (1.8-2.4); Potassium 3.8 mmol/L (3.5-5.1); Protein, Total 5.9 g/dL (6.4-8.2); Sodium Level 138 mmol/L (136-145)
[2019-02-22] MEDS: FUROSEMIDE 20 MG/ 2ML VIAL IV SCH ×2 (08:42→17:03)
[2019-02-22] MEDS: ENOXAPARIN 40 MG/0.4 ML SQ SCH (08:43)
[2019-02-22] MEDS: FAMOTIDINE 20 MG/2 ML VIAL IV SCH ×2 (08:43→21:12)
[2019-02-22] MEDS: NICOTINE 21 MG/PAT TD SCH (08:43)
[2019-02-22] MEDS: FOLIC ACID 1 MG, MULTIVITAMINS INJ 10 ML, THIAMINE HCL 100 MG in NA CHLORIDE 0.9% 1,000 ML IV SCH (08:44)
[2019-02-22] MEDS: LORazepam 2 MG/ML VIAL IV PRN ×3 (10:36→21:39)
[2019-02-22] MEDS: CEFTRIAXONE/SWI 1gm 1 GM/10 ML SYR IV SCH (11:29)
--- NOTE | 2019-02-22 15:49 | P.PN ---
Subjective Date of Service: 02/22/19 Primary Care Provider: none Chief Complaint: Epigastric abdominal pain with nausea, EtOH pancreatitis, GAR[place] Subjective: New changes (Not tolertating GI soft diet with upper abdominal pain and R/L flank pain. Lipase slowly decreasing. No G[place] - lower extremity edema today. Somewhat tachycardia, fluctuates.) Review of Systems 10-point ROS is otherwise unremarkable Gastrointestinal: Abdominal Pain Physical Examination - Vital Signs Temperature: 99.4 F Blood Pressure: 133/91 Pulse: 111 Respirations: 18 Pulse Ox (%): 99 - Physical Exam General: Alert, Oriented x3, Cooperative, Mild distress (with upper abdominal / flank pain) HEENT: Atraumatic, Normocephalic, PERRLA, EOMI Neck: Supple Respiratory: Normal air movement Cardiovascular: No edema, Normal pulses Gastrointestinal: No rebound, Tenderness, Guarding Neurological: Normal speech, Normal strength at 5/5 x4 extr Assessment And Plan - Current Problems (Diagnosis) (1) Alcoholic pancreatitis Current Visit: Yes Status: Acute (2) Edema, lower extremity Current Visit: Yes Status: Acute - Plan REC: 1) increase IVFs for 24 hours 2) CL to FL diet overnight, then advance 3) DT precautions 4) continue IV Thiamine / Folate 5) BDZ prn
[2019-02-22] MEDS ORDERED: Ringers Lactate 1,000 ML IV SCH (16:00)
[2019-02-22] MEDS ORDERED: POTASSIUM 25 MEQ EFFERV TAB ONE (16:54)
[2019-02-22] MEDS ORDERED: MAGNESIUM SULFATE 1 gm IVPB 1 GM/100 ML BAG IV ONE (17:00)
[2019-02-22] MEDS ORDERED: POTASSIUM 25 MEQ EFFERV TAB PO ONE (17:00)
--- NOTE | 2019-02-22 19:30 | PN ---
Date of Progress Note: 02/22/2019 Subjective: Patient is seen and examined. Chart reviewed and case discussed with RN. Patient state s that he has bilateral flank pain. Epigastric pain is significantly improved. Medications: List reviewed. Physical Examination: Vital Signs: Temperature 99.5, heart rate 98, blood pressure 131/63, respirations 18, O2 of 98% on r oom air. General: Awake, alert, and oriented x3, in some mild distress, slightly ill-appearing male. CV: S1, S2. Sinus tachycardia. Peripheral pulses present. Respiratory: Moving air well bilaterally. No wheezing or stridor. Gastrointestinal: Abdomen is soft. Mild tenderness to palpation in the epigastric region. No rebou nd or guarding. Positive bowel sounds. Patient has bilateral flank pain and tenderness. Extremities: No clubbing, cyanosis, or edema. Neurologic: Nonfocal. Laboratory Data: Sodium 138, potassium 3.8, chloride 103, CO2 of 29, BUN 5, creatinine 0.48. Glucos e 88, calcium 7.8, magnesium 1.6, AST 136, ALT 54, alkaline phosphatase 365, albumin 2.1, lipase 561. WBC 6.9, H and H 10.7 and 28.6, platelets 251, neutrophils 64%. Repeat UA negative. Assessment: A 33-year-old male with: 1.Acute alcoholic pancreatitis improving. Lipase level still elevated at 500. However, patient is tolerating his diet and pain is improved. We will continue with pain medications and IV fluids. 2.Epigastric abdominal pain secondary to above, improving. The patient has flank tenderness, possib le pyelonephritis. We will start on IV antibiotics. UA was negative. WBC count is normal, however, with tenderness and clinical picture may require antibiotics. Urology has been consulted. Patient' s CT scan does show nonobstructing stones. 3.Hypokalemia, replaced. We will continue to monitor. 4.Hypomagnesemia. We will replace and monitor. 5.Elevated liver enzymes secondary to alcohol abuse and fatty liver disease, improving. 6.Alcohol abuse with active withdrawal side effects. Patient is tachycardic, tachypneic. We will c ontinue with Ativan p.r.n., using CIWA protocol. Continue multivitamins. 7.Nicotine dependence with cigarette smoking, counseled. 8.Fatty liver disease, counseled. 9.Peripheral edema, improving. 10.Deep venous thrombosis prophylaxis with Lovenox. Plan: Urology consultation. Discharge in the next 24 hours once cleared by Urology. /GABRIELA Voice ID: [id number] Report ID: [id number]
--- NOTE | 2019-02-22 21:15 | CON ---
History Of Present Illness: This patient was admitted for alcoholic pancreatitis. He is a 33-year-o ld white male, history of fatty liver, chronic pancreatitis, admits to alcohol use and tobacco use, p resented to ER with epigastric pain. CT scan was done showing severe pancreatitis. CT scan I think was over-read for possible bilateral pyelo due to the prominence of his medulla in the kidneys home. I do not see any signs of pyelonephritis here. His UA has been negative x3. No nitrate, no leukocy te esterase. No symptoms of UTI. His white count is normal at 6.9. Allergies: NO KNOWN DRUG ALLERGIES. Past Medical History: Chronic pancreatitis, fatty liver, alcohol abuse, tobacco abuse. Past Surgical History: Denies. Psychosocial: Single. Heavy drinker. Family History: Noncontributory. Social History: He is smoker, currently more than 10 cigarettes a day. Review of Systems: Ten-point review of systems otherwise negative. Physical Examination: Vital Signs: Afebrile, stable. HEENT: Atraumatic. Respiratory: Clear. Cardiovascular: S1, S2. Gastrointestinal: Soft, benign. Neurological: Normal speech. Normal strength. Skin: No erythema. No warmth. No cyanosis. Laboratory Studies: Reviewed as mentioned. UA, urine negative for nitrite, negative for esterase x3 , normal white count. Impression: Epigastric pain with nausea and vomiting secondary to acute alcoholic pancreatitis. Pat ient has no signs of any pyelonephritis whatsoever. No urinary tract infections. Continue managemen t for pancreatitis. MAE/MODYousif Voice ID: [id number] Report ID: [id number]
[2019-02-22] MEDS: Ringers Lactate 1,000 ML IV SCH (23:00)
[2019-02-23] MEDS: MORPHINE 2 MG/ML SYR IV PRN ×5 (01:25→20:03)
[2019-02-23] MEDS: LORazepam 2 MG/ML VIAL IV PRN ×3 (01:46→17:14)
[2019-02-23] MEDS: Ringers Lactate 1,000 ML IV SCH ×3 (05:10→18:40)
[2019-02-23 06:22] LABS: Absolute Lymphocytes (CBC) 1.3 K/uL (0.7-4.9); Basophils % 0.9 % (0-1.3); Hematocrit 30.3 % (39.6-49.0); Lymphocytes % 17.3 % (15.3-44.8); MPV 9.4 fL (7.6-11.3); RBC Red Blood Cell Count 3.02 M/uL (4.33-5.43)
[2019-02-23 06:40] LABS: ALT/SGPT 51 U/L (12-78); AST/SGOT 134 U/L (15-37); Albumin 2.2 g/dL (3.4-5.0); Alkaline Phosphatase 335 U/L (45-117); BUN Blood Urea Nitrogen 6 mg/dL (7-18); Bicarbonate 29 mmol/L (21-32); Bilirubin Total 1.2 mg/dL (0.2-1.0); Glucose Level 79 mg/dL (74-106); Lipase 907 U/L (73-393); Magnesium 1.9 mg/dL (1.8-2.4); Potassium 4.1 mmol/L (3.5-5.1); Protein, Total 6.3 g/dL (6.4-8.2); Sodium Level 137 mmol/L (136-145)
[2019-02-23] MEDS: ENOXAPARIN 40 MG/0.4 ML SQ SCH (08:17)
[2019-02-23] MEDS: NICOTINE 21 MG/PAT TD SCH (08:17)
[2019-02-23] MEDS: FAMOTIDINE 20 MG/2 ML VIAL IV SCH ×2 (08:19→20:09)
[2019-02-23] MEDS: CEFTRIAXONE/SWI 1gm 1 GM/10 ML SYR IV SCH (08:21)
[2019-02-23] MEDS: FOLIC ACID 1 MG, MULTIVITAMINS INJ 10 ML, THIAMINE HCL 100 MG in NA CHLORIDE 0.9% 1,000 ML IV SCH (09:17)
[2019-02-23] MEDS: FUROSEMIDE 20 MG/ 2ML VIAL IV SCH ×2 (10:47→17:14)
--- NOTE | 2019-02-23 14:23 | PN ---
Date of Progress Note: 02/23/2019 Subjective: Patient seen and examined. Chart reviewed and case discussed with RN and Dr. Armstrong. Th e patient still reporting abdominal pain, emesis x1. Medications: List reviewed. Physical Examination: Vital signs: Temperature 99, heart rate 105, blood pressure 121/74, respirations 16, O2 100% on room air. General: Awake, alert, oriented x3, not in any acute distress. CV: S1, S2. Sinus tachycardia. Peripheral pulses present. Respiratory: Moving air well bilaterally. No wheezing or stridor. Gastrointestinal: Abdomen is soft. Tenderness to palpation in the epigastric region. No rebound or guarding. Positive bowel sounds. Extremities: No clubbing, cyanosis, or edema. Neurologic: Nonfocal. Back: No CVA tenderness. Laboratory Data: Sodium 137, potassium 4.1, chloride 102, CO2 of 29, BUN 6, creatinine 0.41, glucose 79, calcium 8, magnesium 1.9, AST 134, ALT 51, lipase 907. WBC 7.5, H and H of 10.3 and 30.3, plate lets 235. Blood cultures, no growth to date. Urine culture, no growth. Assessment And Plan: A 33-year-old male with: 1.Acute alcoholic pancreatitis. We will continue with IV fluids. We will switch back to full liqui d diet as the patient has episode of emesis and lipase is trending up. Appreciate Dr. Walsh's input . 2.Acute alcohol withdrawal. The patient continues to be tachycardic and tachypneic. We will contin ue with benzodiazepines p.r.n. Continue multivitamins. 3.Epigastric abdominal pain secondary to above, improving. 4.Pyelonephritis, ruled out. Appreciate Dr. Armstrong's input. UA is negative. Cultures negative. Wh ite blood cell count is normal. 5.Hypokalemia, replaced. We will continue to monitor. 6.Hypomagnesemia. Replace and monitor. 7.Elevated liver enzymes secondary to alcohol abuse and fatty liver disease, trending down. 8.Nicotine dependence with cigarette smoking, counseled. 9.Fatty liver disease, stable. 10.Peripheral edema, stable, likely due to his liver disease. 11.Deep venous thrombosis prophylaxis with Lovenox. Plan: We will continue to monitor lipase levels. Discharge in the next 24 to 48 hours depending on clinical response. SA/MODL Voice ID: [id number] Report ID: [id number]
[2019-02-23] MEDS: HYDROCODONE/APAP 5/325 MG TAB PO PRN (23:56)
[2019-02-24] MEDS: MORPHINE 2 MG/ML SYR IV PRN ×3 (01:50→14:18)
[2019-02-24] MEDS: Ringers Lactate 1,000 ML IV SCH ×2 (01:51→20:14)
[2019-02-24 05:32] VITALS: BMI 19.8
[2019-02-24 06:28] LABS: ALT/SGPT 50 U/L (12-78); AST/SGOT 129 U/L (15-37); Albumin 2.1 g/dL (3.4-5.0); Alkaline Phosphatase 307 U/L (45-117); BUN Blood Urea Nitrogen 4 mg/dL (7-18); Bicarbonate 30 mmol/L (21-32); Glucose Level 92 mg/dL (74-106); Lipase 1086 U/L (73-393); Potassium 3.3 mmol/L (3.5-5.1); Protein, Total 6.1 g/dL (6.4-8.2); Sodium Level 140 mmol/L (136-145)
[2019-02-24] MEDS: ENOXAPARIN 40 MG/0.4 ML SQ SCH (07:58)
[2019-02-24] MEDS: FUROSEMIDE 20 MG/ 2ML VIAL IV SCH ×2 (07:58→17:20)
[2019-02-24] MEDS: NICOTINE 21 MG/PAT TD SCH (08:19)
[2019-02-24] MEDS: CEFTRIAXONE/SWI 1gm 1 GM/10 ML SYR IV SCH (08:35)
[2019-02-24] MEDS: FAMOTIDINE 20 MG/2 ML VIAL IV SCH ×2 (08:35→19:58)
[2019-02-24] MEDS: FOLIC ACID 1 MG, MULTIVITAMINS INJ 10 ML, THIAMINE HCL 100 MG in NA CHLORIDE 0.9% 1,000 ML IV SCH (09:17)
[2019-02-24] MEDS: HYDROCODONE/APAP 5/325 MG TAB PO PRN ×3 (09:47→22:02)
--- NOTE | 2019-02-24 10:30 | RAD REPORT ---
EXAM DESCRIPTION: US - Abdomen Exam Limited - 02/24/2019 9:43 am CLINICAL HISTORY: Abdominal pain, possible duct stone COMPARISON: CT study February 18, abdomen ultrasound study February 18 FINDINGS: Limited right upper quadrant sonography to evaluate common bile duct. Common bile duct is 4 mm. No duct stone was identifiable. No intrahepatic biliary tree dilatation. Limited gallbladder imaging again noted the prominent circumferential wall thickening and edema. Fatt y infiltration of the partially imaged liver again noted. IMPRESSION: No biliary tree dilatation and no common duct stone identifiable. Prominent circumferential wall thickening of the gallbladder matching prior imaging. No gallstones se en on limited imaging. Fatty infiltration of a partially imaged liver.
[2019-02-24] MEDS: LIPASE/PROTEASE/AMYLASE CAP PO SCH ×2 (17:20→19:58)
--- NOTE | 2019-02-24 19:15 | PN ---
Date of Progress Note: 02/24/2019 Subjective: Patient seen and examined. Chart reviewed and case discussed with RN. Patient clinical ly seems to be stable, tolerating full liquids. Medications: List reviewed. Physical Examination: Vital Signs: Temperature 98.2, heart rate 89, blood pressure 132/73, respirations 18, O2 99% on room air. General: Awake, alert, oriented x3, not in any acute distress. CV: S1, S2. Regular rate and rhythm. Peripheral pulses present. Respiratory: Moving air well bilaterally. No wheezing. Gastrointestinal: Abdomen is soft, nontender, nondistended. Positive bowel sounds. No guarding or rigidity. Extremities: No clubbing, cyanosis, or edema. Neurologic: Nonfocal. Laboratory Data: Sodium 140, potassium 3.3, chloride 105, CO2 30, BUN 4, creatinine 0.47, glucose 92 , calcium 7.9. AST 129, ALT 50, albumin 2.1, lipase 1086. Blood cultures negative. Final urine cul ture no growth. Abdominal ultrasound shows no biliary tree dilatation. Assessment: A 33-year-old male with: 1.Acute alcoholic pancreatitis, clinically stable. However, lipase level continues to trend up. We will give another trial of GI soft diet. GI on board. Repeat ultrasound was done to evaluate the C BD, which was not visualized on the previous ultrasound. There was no stone. 2.Acute alcohol withdrawal with symptoms of withdrawal. We will continue with benzodiazepines p.r.n . Continue multivitamins. 3.Epigastric abdominal pain secondary to above, improving. 4.Hypokalemia, replace. 5.Hypomagnesemia, replace and monitor. 6.Elevated liver enzymes secondary to fatty liver disease. 7.Fatty liver disease. Counseled. 8.Nicotine dependence with cigarette smoking. Counseled. 9.Peripheral edema, improving. 10.Deep venous thrombosis prophylaxis with Lovenox. Plan: Advance diet to GI soft. Discharge in a.m. if lipase is trending down and clinically stable. SA/MODL Voice ID: [id number] Report ID: [id number]
[2019-02-24] MEDS: LORazepam 2 MG/ML VIAL IV PRN (20:03)
[2019-02-25] MEDS: Ringers Lactate 1,000 ML IV SCH (01:00)
[2019-02-25 04:50] LABS: ALT/SGPT 48 U/L (12-78); AST/SGOT 117 U/L (15-37); Albumin 2.1 g/dL (3.4-5.0); Alkaline Phosphatase 275 U/L (45-117); BUN Blood Urea Nitrogen 5 mg/dL (7-18); Bicarbonate 28 mmol/L (21-32); Bilirubin Total 0.9 mg/dL (0.2-1.0); Glucose Level 85 mg/dL (74-106); Lipase 606 U/L (73-393); Potassium 3.8 mmol/L (3.5-5.1); Protein, Total 6.2 g/dL (6.4-8.2); Sodium Level 141 mmol/L (136-145)
[2019-02-25 05:33] VITALS: O2SAT 98
[2019-02-25] MEDS: HYDROCODONE/APAP 5/325 MG TAB PO PRN (06:27)
[2019-02-25] MEDS ORDERED: PANTOPRAZOLE 40MG TABLET PO SCH (06:30)
[2019-02-25 08:44] VITALS: BP 132/84; TEMP 97.4
--- NOTE | 2019-02-25 08:49 | P.DS ---
Admission Date: 02/19/19 Discharge Date: 02/25/19 Primary Care Provider: none Disposition: ROUTINE DISCHARGE Discharge Condition: GOOD Reason for Admission: Epigastric abdominal pain with nausea, EtOH pancreatitis, [place] Consultations: GI-Dr. Walsh Urology-Dr. Armstrong Procedures: CT scan: FINDINGS: The lung bases are clear. No pleural or pericardial effusions. There is marked hepatic steatosis. Splenomegaly is also present with mild free fluid. There is diffuse inflammatory stranding and free fluid surrounding the pancreas consistent with pancreatitis. The pancreatic duct is dilated up to 1.1 cm. There are multiple areas of linear hypodensity extending to the left and right renal cortices which may represent polynephritis. Multiple nonobstructing stones are seen in both kidneys. No hydronephrosis. There is diffuse wall thickening of the ascending and transverse colon which may be reactive to surrounding inflammation. The appendix is not well visualized. There is a large amount of abdominopelvic ascites. No free air however. The aorta is normal caliber. Bones are intact. IMPRESSION: 1. Findings consistent with acute pancreatitis. Correlate with lab values. 2. Findings which may also represent acute bilateral pyelonephritis. Correlate with urinalysis. 3. Large amount of abdominopelvic ascites. 4. Wall thickening of the proximal colon which may be reactive. ECHO: EF 70% LEFT VENTRICULAR WALL MOTION: NORMAL. DOPPLER/COLOR FLOW: PHYSIOLOGIC TRICUSPID REGURGITATION. NORMAL RIGHT VENTRICULAR SYSTOLIC PRESSURE. COMMENTS: NORMAL 2D ECHO WITH DOPPLER Repeat ABUS: FINDINGS: Limited right upper quadrant sonography to evaluate common bile duct. Common bile duct is 4 mm. No duct stone was identifiable. No intrahepatic biliary tree dilatation. Limited gallbladder imaging again noted the prominent circumferential wall thickening and edema. Fatty infiltration of the partially imaged liver again noted. IMPRESSION: No biliary tree dilatation and no common duct stone identifiable. Prominent circumferential wall thickening of the gallbladder matching prior imaging. No gallstones seen on limited imaging. Fatty infiltration of a partially imaged liver. Medical Problem List: Acute on chronic alcoholic pancreatitis Acute alcohol withdrawal with symptoms of withdrawal complicated with alcohol abuse Hypokalemia Hypo magnesium Elevated liver function secondary to fatty liver disease Tobacco abuse Peripheral edema likely related to above GERD Brief History of Present Illness: 33 yo CM presented to the ER with epigastric abdominal pain with nausea and vomiting. He reports a history of fatty liver and chronic pancreatitis. He also admits to alcohol use and tobacco use. He presented to the ER with epigastric pain. It started this weekend and got worse. He had nausea and vomiting. He also reported some edema to the lower ext. No fever or chills. His last alcohol use was 5 days ago. He smokes a great deal. He does not report IV drug use. In the ER, he was found to have pancreatitis on CT scan. His Lipase was elevated. Free commode potassium 2.8, creatinine within normal range. Glucose 93. Total bilirubin 1.2, ALT of 89, AST of 276. Alk-phos 569. Lipase 880 abdominal ultrasound showed fatty liver. Patient was admitted for further evaluation and treatment. Patient currently stable in the emergency room. Patient reports last use of alcohol 5 days ago. Hospital Course: Patient presented with epigastric abdominal pain with noted elevated lipase. Patient with history of alcoholic pancreatitis. Patient found to have acute on chronic alcoholic pancreatitis. Patient was admitted for treatment. During the course of his stay his symptoms slowly improved. GI was consulted for recommendation. Patient continue with IV fluid hydration. His abdominal pain, nausea and vomiting resolved. At discharge he is without any significant abdominal pain. He is tolerating a GI soft diet. Lipase has improved. At discharge he will continue with a GI soft diet at home. He will continue with Creon 3 times a day. Patient will be provided a limited supply of Tylenol #3 for pain. Alcohol cessation addressed in detail. Patient plans to quit. Patient understands the risk of continued alcohol use. Education on pancreatitis provided. Recommend follow up with GI in 2-4 weeks to follow up this hospitalization. Patient will also establish care locally with a physician to continue his overall care. Patient with underlying alcohol abuse. Patient did have alcohol withdrawal symptoms. Patient was given IV fluids and benzodiazepine. This has resolved. At discharge he is without any significant agitation. As recommended above, alcohol cessation addressed in detail. Patient understands the risk of continued use. Patient plans to quit. At discharge he will continue with folic acid 1 mg daily and thiamine 100 mg daily. During the course of his stay electrolytes were monitored and replaced. This included lobe potassium and magnesium. Patient also presented with elevated liver function. This is likely related to fatty liver disease liver provided. Recommend follow up with GI as an outpatient to further address. Lifestyle modification education provided. Patient with tobacco abuse. Tobacco cessation addressed in detail. Education will be provided. Patient also presented with peripheral edema likely related to above. At discharge, he will continue with a 1500 cc per day fluid restriction. Patient will also be given Lasix 20 mg daily as needed for edema. Eventually Lasix can likely be discontinued. Patient was also seen by urology as there was some suspicion of pyelonephritis on CT scan. CT scan reviewed along with urinalysis. No indication of pyelonephritis. No indication for antibiotic therapy at this time. Patient likely with underlying GERD. At discharge he will continue with Protonix 40 mg daily. Vital Signs/Physical Exam: Temp Pulse Resp BP Pulse Ox 97.4 F 81 16 132/84 97 02/25/19 08:00 02/25/19 08:00 02/25/19 08:00 02/25/19 08:00 02/25/19 08:00 General: Alert, In no apparent distress, Oriented x3, Cooperative HEENT: Atraumatic Neck: Supple Respiratory: Clear to auscultation bilaterally, Normal air movement Cardiovascular: Normal pulses, Regular rate/rhythm Gastrointestinal: Normal bowel sounds, Soft and benign, Non-distended, No ascites, No tenderness, No masses, No rebound, No guarding Musculoskeletal: No erythema, No tenderness, No warmth Integumentary: No tenderness/swelling, No erythema, No warmth, No cyanosis Neurological: Normal speech, Normal strength at 5/5 x4 extr, Normal tone, Normal affect Laboratory Data at Discharge: WBC 7.5 K/uL (4.3-10.9) 02/23/19 05:44 Hgb 10.3 g/dL (13.6-17.9) L 02/23/19 05:44 Hct 30.3 % (39.6-49.0) L 02/23/19 05:44 Plt Count 235 K/uL (152-406) 02/23/19 05:44 Sodium 141 mmol/L (136-145) 02/25/19 04:24 Potassium 3.8 mmol/L (3.5-5.1) 02/25/19 04:24 BUN 5 mg/dL (7-18) L 02/25/19 04:24 Creatinine 0.45 mg/dL (0.55-1.3) L 02/25/19 04:24 Glucose 85 mg/dL (74-106) 02/25/19 04:24 Magnesium 1.9 mg/dL (1.8-2.4) 02/23/19 05:44 Total Bilirubin 0.9 mg/dL (0.2-1.0) 02/25/19 04:24 AST 117 U/L (15-37) H 02/25/19 04:24 ALT 48 U/L (12-78) 02/25/19 04:24 Alkaline Phosphatase 275 U/L (45-117) H 02/25/19 04:24 Triglycerides 128 mg/dL (<150) 02/20/19 05:31 Cholesterol 162 mg/dL (<200) 02/20/19 05:31 HDL Cholesterol 12 mg/dL (40-60) L 02/20/19 05:31 Cholesterol/HDL Ratio 13.50 02/20/19 05:31 Lipase 606 U/L (73-393) H 02/25/19 04:24 Home Medications: Folic Acid 1 mg PO DAILY #90 tablet 02/25/19 Furosemide [Lasix] 20 mg PO DAILY PRN #30 tab 02/25/19 Lipase/Protease/Amylase [Creon Dr 12,000 Units Capsule] 1 cap PO TIDWMHS #90 cap 02/25/19 Pantoprazole [Protonix Tab*] 40 mg PO DAILYAC #30 tab 02/25/19 Thiamine HCl 100 mg PO DAILY #90 tablet 02/25/19 New Medications: Folic Acid 1 mg PO DAILY #90 tablet Furosemide [Lasix] 20 mg PO DAILY PRN #30 tab PRN Reason: Shortness Of Breath Lipase/Protease/Amylase [Creon Dr 12,000 Units Capsule] 1 cap PO TIDWMHS #90 cap Pantoprazole [Protonix Tab*] 40 mg PO DAILYAC #30 tab Thiamine HCl 100 mg PO DAILY #90 tablet Patient Discharge Instructions: 1. Recommend to establish care with a local PCP to follow up this hospitalization. 2. Patient presented with epigastric abdominal pain with noted elevated lipase. Patient with history of alcoholic pancreatitis. Patient found to have acute on chronic alcoholic pancreatitis. His abdominal pain, nausea and vomiting resolved. At discharge he is without any significant abdominal pain. He is tolerating a GI soft diet. Lipase has improved. At discharge he will continue with a GI soft diet at home. He will continue with Creon 3 times a day. Patient will be provided a limited supply of Tylenol #3 for pain. Alcohol cessation addressed in detail. Patient plans to quit. Patient understands the risk of continued alcohol use. Education on pancreatitis provided. Recommend follow up with GI in 2-4 weeks to follow up this hospitalization. Patient will also establish care locally with a physician to continue his overall care. 3. Patient with underlying alcohol abuse. Patient did have alcohol withdrawal symptoms. Patient was given IV fluids and benzodiazepine. This has resolved. At discharge he is without any significant agitation. As recommended above, alcohol cessation addressed in detail. Patient understands the risk of continued use. Patient plans to quit. At discharge he will continue with folic acid 1 mg daily and thiamine 100 mg daily. 4. During the course of his stay electrolytes were monitored and replaced. This included lobe potassium and magnesium. 5. Patient also presented with elevated liver function. This is likely related to fatty liver disease liver provided. Recommend follow up with GI as an outpatient to further address. Lifestyle modification education provided. 6. Patient with tobacco abuse. Tobacco cessation addressed in detail. Education will be provided. 7. Patient also presented with peripheral edema likely related to above. At discharge, he will continue with a 1500 cc per day fluid restriction. Patient will also be given Lasix 20 mg daily as needed for edema. Eventually Lasix can likely be discontinued. 8. Patient was also seen by urology as there was some suspicion of pyelonephritis on CT scan. CT scan reviewed along with urinalysis. No indication of pyelonephritis. No indication for antibiotic therapy at this time. 9. Patient likely with underlying GERD. At discharge he will continue with Protonix 40 mg daily. Diet: GI soft diet Activity: Ad jose carlos Time spent managing pt's care (in minutes): 55
[2019-02-25] MEDS: FOLIC ACID 1 MG, MULTIVITAMINS INJ 10 ML, THIAMINE HCL 100 MG in NA CHLORIDE 0.9% 1,000 ML IV SCH (08:51)
[2019-02-25] MEDS: ENOXAPARIN 40 MG/0.4 ML SQ SCH (08:51)
[2019-02-25] MEDS: LIPASE/PROTEASE/AMYLASE CAP PO SCH (08:51)
[2019-02-25] MEDS: NICOTINE 21 MG/PAT TD SCH (08:51)
[2019-02-25] MEDS: FUROSEMIDE 20 MG/ 2ML VIAL IV SCH (08:51)
[2019-02-25] MEDS: FAMOTIDINE 20 MG/2 ML VIAL IV SCH (08:51)
[2019-02-25] MEDS ORDERED: POTASSIUM CL SA 10 MEQ TAB PO ONE (09:00)
== END 2019-02-25 10:54 | disposition home or self-care (01) | DRG 439 ==
LOC: ER 20:02 → ERHOLD 02-19 00:16 → 2ND 02-19 00:42
PROVIDERS: ADMIT Family Medicine; ATTEND Family Medicine
DX: K85.20 Alcohol induced acute pancreatitis without necrosis or infection (principal); F10.239 Alcohol dependence with withdrawal, unspecified; K86.0 Alcohol-induced chronic pancreatitis; E87.6 Hypokalemia; E83.42 Hypomagnesemia; K76.0 Fatty (change of) liver, not elsewhere classified; F17.210 Nicotine dependence, cigarettes, uncomplicated; K21.9 Gastro-esophageal reflux disease without esophagitis
CPT/HCPCS: 36415; 71045; 74177; 76705; 80048; 80053; 80061; 80076; 80307; 81003; 81015; 83690; 83735; 84132; 85025; 87040; 87086; 87088; 93306; 96374; 99285; J0696; J1650; J1940; J2175; J2270; J3411; J3475; J7030; Q9967

== ENCOUNTER 2019-03-02 17:55 | Emergency (ER) | payer SELFPAY ==
--- OUTSIDE RECORDS SUMMARY | 2019-03-02 17:59 | XMS REPORT | Clinical Summary ---
:[address] [facility] [place], [place] Address [address] [place] [address] Care Team Providers Name Role Phone Pcp, [...] Jared Peter UPPER ENDOSCOPY MD Grant 02/12/2019 [facility] Internal Liza Carlin Acute blood loss anemia; - Encounter Medicine MD Yasmeen Alcohol-induced acute pancreatitis without infection or necrosis; 02/15/2019 Valarie Cannon MD Acute metabolic encephalopathy; Clement Bonilla MD Alcohol withdrawal syndrome, with delirium (HCC); Electrolyte disturbance; Elevated LFTs; Alcoholic liver disease (HCC); Alcohol withdrawal syndrome without complication (HCC) 02/12/2019 Travel 12/10/2018 [facility] Internal Anna Leslee Alcohol withdrawal syndrome, with delirium (HCC); - Encounter Medicine MD Rashmi CARLOS EDUARDO (acute kidney injury) (HCC); 12/13/2018 Nubia, Alcohol withdrawal syndrome without complication ( HCC); Willy Li, Elevated LFTs; Pneumothorax on left; Brooke Shaw MD Uncomplicated alcohol dependence (HCC); Alcohol-induced acute pancreatitis without infection or necrosis 12/10/2018 Travel 10/27/2018 [facility] Internal BessFariba rankin Alcohol withdrawal syndrome without complication (HCC); - Encounter Medicine MD Genia Alcohol-induced acute pancreatitis without infection or necrosis; 11/01/2018 Maribeth Whalen, Elevated LFTs; Electrolyte disturbance; Misbah, Hallucination, visual; MD Sue Alcohol withdrawal delirium (HCC) 09/29/2018 [facility] Internal Valarie Cannon MD Alcohol withdrawal syndrome, with delirium (HCC); - Encounter Medicine Kaz, Alcohol-induced acute pancreatitis, unspecified complication status; 10/02/2018 Jonathan Acute metabolic encephalopathy; MD Natacha Colitis; Maribeth Whalen, Acute alcoholic hepatitis; Alcohol-induced acute pancreatitis without infection or necrosis; Electrolyte disturbance; Essential hypertension; Uncontrolled hypertension 09/29/2018 Orders Only General Internal Medicine after 03/01/2018 Family History Medical History Relation Name Comments [...] CDT procedure are in the results section. DRUG SCREEN, URINE, STAT 02/12/2019 3:34 COMPREHENSIVE PM CDT TYPE AND SCREEN, STAT 02/12/2019 1:56 Results [...] 326 ms QTC Calculation(Bazett) 523 ms P [place] 60 degrees R [place] 81 degrees T [place] 13 degrees Sinus tachycardia Cannot rule out Anterior infarct , age undetermined T wave abnormality, consider inferolateral ischemia Abnormal ECG No previous ECGs available ECG 12-LEAD Routine 09/29/2018 3:45 AM CDT after 03/01/2018 Results EKG-SCANNED (02/17/2019 12:40 PM CDT)Only the [...] 90Comment: TESTED AT 70 - 110 mg/dL [facility] [address] [facility] [id number] Specimen Blood Performing Organization Address City/State/Zipcode Phone Number [address] [address] CENTER CBC with platelet count + automated diff (02/15/2019 4:38 AM CDT)Only the most recent of12 resultswithin the time period is included. WBC 4.5 3.5 - 10.5 K/L [facility] RBC 2.76 (L) 4.63 - 6.08 M/L [facility] Hemoglobin 9.2 (L) 13.7 - 17.5 GM/DL [facility] Hematocrit 29.2 (L) 40.1 - 51.0 % [facility] MCV 105.8 (H) 79.0 - 92.2 fL [facility] MCH 33.3 (H) 25.7 - 32.2 pg [facility] MCHC 31.5 (L) 32.3 - 36.5 GM/DL [facility] RDW 21.9 (H) 11.6 - 14.4 % [facility] Platelets 150 150 - 450 K/CU MM [facility] MPV 10.5 9.4 - 12.4 fL [facility] nRBC 0 0 - 0 /100 WBC [facility] % Neutros 65 % [facility] % Lymphs 17 % [facility] % Monos 13 % [facility] % Eos 2 % [facility] % Baso 1 % [facility] # Neutros 2.91 1.78 - 5.38 K/L [facility] # Lymphs 0.78 (L) 1.32 - 3.57 K/L [facility] # Monos 0.59 0.30 - 0.82 K/L [facility] # Eos 0.11 0.04 - 0.54 K/L [facility] # Baso 0.05 0.01 - 0.08 K/L [facility] Immature 2 (H) 0 - 1 % [facility] CENTER Specimen Blood Performing Organization Address City/State/Zipcode Phone Number [address] [phone] CENTER Phosphorus (02/15/2019 4:38 AM CDT)Only the most recent of11 resultswithin the time period is included. Phosphorus 2.4 2.3 - 4.7 mg/dL [facility] Specimen Blood Performing Organization Address City/[facility]/Zipcode Phone Number [address] [phone] CENTER Magnesium (02/15/2019 4:38 AM CDT)Only the most recent of14 resultswithin the time period is included. Magnesium 1.8 1.6 - 2.6 mg/dL [facility] Specimen Blood Performing Organization Address City/[facility]/Zipcode Phone Number [address] [phone] CENTER Lipase (02/15/2019 4:38 AM CDT)Only the most recent of5 resultswithin the time period is included. Lipase 231 (H) 8 - 78 U/L [facility] Specimen Blood Performing Organization Address City/[facility] Phone Number [address] [address] [place] Hepatic function panel (02/15/2019 4:38 AM CDT)Only the most recent of3 resultswithin the time period is included. Protein, Total 5.7 (L) 6.0 - 8.3 gm/dL [facility] Albumin 2.5 (L) 3.5 - 5.0 g/dL [facility] Total Bilirubin 1.7 (H) 0.2 - 1.2 mg/dL [facility] Bilirubin, Direct 1.3 (H) 0.1 - 0.5 mg/dL [facility] Alkaline Phosphatase 411 (H) 40 - 150 U/L [facility] AST 173 (H) 5 - 34 U/L [facility] ALT 53 6 - 55 U/L [facility] Specimen Blood Performing Organization Address City/[facility] Phone Number [address] [address] [place] Comprehensive metabolic panel (02/15/2019 4:38 AM CDT)Only the most recent of13 resultswithin the time period is included. Protein, Total 5.7 (L) 6.0 - 8.3 gm/dL [facility] Albumin 2.5 (L) 3.5 - 5.0 g/dL [facility] Alkaline Phosphatase 411 (H) 40 - 150 U/L [facility] Total Bilirubin 1.7 (H) 0.2 - 1.2 mg/dL [facility] Sodium 139 136 - 145 meq/L [facility] Potassium 3.1 (L) 3.5 - 5.1 meq/L [facility] Chloride 105 98 - 107 meq/L [facility] CO2 24 22 - 29 meq/L [facility] BUN 3 (L) 7 - 21 mg/dL [facility] Creatinine 0.61 0.57 - 1.25 mg/dL [facility] Glucose 95 70 - 105 mg/dL [facility] Calcium 6.8 (L) 8.4 - 10.2 mg/dL [facility] AST 173 (H) 5 - 34 U/L [facility] ALT 53 6 - 55 U/L [facility] EGFR 153Comment: ESTIMATED mL/min/1.73 sq m [facility] GFR IS NOT ACCURATE [facility] CREATININE CLEARANCE IN PREDICTING GLOMERULAR FILTRATION RATE. ESTIMATED GFR IS NOT APPLICABLE FOR DIALYSIS PATIENTS. Specimen Blood Performing Organization Address City/State/Zipcode Phone Number [address] [address] [place] REPORT OF PROCEDURE - ENDOSCOPY URL (02/14/2019 12:41 PM CDT) Narrative Performed At Hemoglobin and hematocrit (02/14/2019 3:39 AM CDT)Only the most recent of3 resultswithin the time period is included. Hemoglobin 9.4 (L) 13.7 - 17.5 GM/DL [facility] Hematocrit 28.9 (L) 40.1 - 51.0 % [facility] Specimen Blood Performing Organization Address City/State/Zipcode Phone Number [facility] [address] [place] [address] [phone] [place] TRANSFUSION SERVICE REPORT - SCAN (02/13/2019 5:52 PM CDT) Narrative Performed At CBC (Hemogram only) (02/13/2019 4:35 AM CDT)Only the most recent of2 resultswithin the time period is included. WBC 4.8 3.5 - 10.5 K/L [facility] RBC 2.41 (L) 4.63 - 6.08 M/L [facility] Hemoglobin 8.1 (L) 13.7 - 17.5 GM/DL [facility] Hematocrit 24.1 (L) 40.1 - 51.0 % [facility] MCV 100.0 (H) 79.0 - 92.2 fL [facility] MCH 33.6 (H) 25.7 - 32.2 pg [facility] MCHC 33.6 32.3 - 36.5 GM/DL [facility] RDW 22.4 (H) 11.6 - 14.4 % [facility] Platelets 135 (L) 150 - 450 K/CU MM [facility] MPV 10.0 9.4 - 12.4 fL [facility] nRBC 1 (H) 0 - 0 /100 WBC [facility] Specimen Blood Performing Organization Address City/State/Zipcode Phone Number [facility] [address] [place] [address] CENTER Basic Metabolic Panel (02/13/2019 12:51 AM CDT)Only the most recent of5 resultswithin the time period is included. Sodium 137 136 - 145 meq/L [facility] Potassium 3.1 (L) 3.5 - 5.1 meq/L [facility] Chloride 104 98 - 107 meq/L [facility] CO2 24 22 - 29 meq/L [facility] BUN 3 (L) 7 - 21 mg/dL [facility] Creatinine 0.50 (L) 0.57 - 1.25 mg/dL [facility] Glucose 124 (H) 70 - 105 mg/dL [facility] Calcium 6.5 (L) 8.4 - 10.2 mg/dL [facility] EGFR 193Comment: ESTIMATED GFR IS mL/min/1.73 sq m [facility] NOT ACCURATE [facility] CLEARANCE IN PREDICTING GLOMERULAR FILTRATION RATE. ESTIMATED GFR IS NOT APPLICABLE FOR DIALYSIS PATIENTS. Specimen Blood Performing Organization Address [facility] Phone Number [address] [address] CENTER ABORH, manual (02/12/2019 3:42 PM CDT) ABO Grouping B [facility] Rh Factor POS [facility] Specimen Blood Performing Organization Address [facility] Phone Number [address] [address] [phone] Drug screen, urine, comprehensive (02/12/2019 3:34 PM CDT) Specimen Urine Narrative Performed At Type and screen, automated (02/12/2019 1:56 PM CDT) ABO/RH AUTOMATED (BEAKER) B POSITIVE [facility] Ab Scrn NEGATIVE [facility] Specimen Blood Performing Organization Address [facility] Phone Number [address] [address] [phone] Ethanol (02/12/2019 1:56 PM CDT) Ethanol Lvl <10 <=10 mg/dL [facility] Specimen Blood Performing Organization Address [facility] Phone Number [address] [address] CENTER PT/aPTT (02/12/2019 1:55 PM CDT) Protime 17.8 (H) 11.9 - 14.2 seconds [facility] INR 1.6 <=5.9 [facility] PTT 34.9 22.5 - 36.0 seconds [facility] Specimen Blood Narrative Performed At Effective 12/11/2018: PT Reference Range [facility] Change New: 11.9-14.2Previous: 11.7-14.7 RECOMMENDED COUMADIN/WARFARIN INR THERAPY RANGES STANDARD DOSE: 2.0-3.0Includes: PROPHYLAXIS for venous thrombosis, systemic embolization; TREATMENT for venous thrombosis and/or pulmonary embolus. HIGH RISK: Target INR is 2.5-3.5 for patients wiht mechanical heart valves. Performing Organization Address City/[facility] Phone Number [address] [address] CENTER Lactic acid, venous (02/12/2019 1:55 PM CDT)Only the most recent of4 resultswithin the time period is included. Lactate, Venous 1.5 0.5 - 2.2 mmol/L [facility] Specimen Blood Performing Organization Address [facility] Phone Number [address] [address] [phone] CENTER Fibrinogen (02/12/2019 1:55 PM CDT) Fibrinogen 304 225 - 434 mg/dl [facility] Specimen Blood Performing Organization Address City/[facility] Phone Number [address] [address] CENTER D-dimer (02/12/2019 1:55 PM CDT) D-Dimer, Quant 4.23 (H) <0.50 MG/L FEU [facility] Specimen Blood Narrative Performed At Intended Use: The D-Dimer Assay can be used [facility] to aid in the diagnosis of Deep Vein Thrombosis (DVT) and Pulmonary Embolism Disease (PED). In patients with low pre-test probability, various studies concerning STA Liatest D-dimer test have reported that with a cutoff value of 0.50 MG/L FEU, the Negative Predictive Value (NPV) regarding the exclusion of thrombosis is within 95-100% range. Performing Organization Address City/[facility] Phone Number [address] [address] CENTER Lactate dehydrogenase (LDH) (02/12/2019 1:55 PM CDT) LDH 572 (H) 125 - 220 U/L [facility] Specimen Blood Performing Organization Address [facility] Phone Number [address] [address] CENTER Amylase (02/12/2019 1:55 PM CDT) Amylase 160 (H) 25 - 125 U/L [facility] Specimen Blood Narrative Performed At Specimen slightly icteric [facility] Performing Organization Address [facility] Phone Number [address] [address] [phone] CENTER Ammonia (02/12/2019 1:55 PM CDT) Ammonia 50 18 - 72 mol/L [facility] Specimen Blood Performing Organization Address [facility] Phone Number [address] [address] [place] MR abdomen without IV contrast MRCP (12/12/2018 12:17 PM CDT) Specimen Narrative Performed At FINAL REPORT [facility] MRCP, MRI of abdomen without contrast Clinical [...] MD Report Verified Date/Time:12/12/2018 13:31:00 Reading Location: [address] Body Reading Room Procedure Note [...] Verified Date/Time: 12/12/2018 13:31:00 Reading Location: [facility] [id number] CT Body Reading Room Performing Organization Address City/State/Zipcode Phone Number [facility] [place] esoph swallow funct with cine video (12/11/2018 10:40 AM CDT) Specimen Narrative Performed At FINAL REPORT [facility] INDICATION: Pneumomediastinum. Evaluate for esophageal perforation. COMPARISON: [...] MD Report Verified Date/Time:12/11/2018 12:02:17 Reading Location: [facility] B1 [id number] Ortho Consult Reading Room Procedure Note [...] Verified Date/Time: 12/11/2018 12:02:17 Reading Location: [facility] C0[facility] Ortho Consult Reading Room Performing Organization Address City/State/[facility] Phone Number [facility] Prothrombin time/INR (12/10/2018 6:30 PM CDT)Only the most recent of4 resultswithin the time period is included. Protime 15.8 (H) 11.7 - 14.7 seconds [facility] INR 1.3 <=5.9 [facility] Specimen Blood Narrative Performed At RECOMMENDED COUMADIN/WARFARIN INR THERAPY [facility] RANGES STANDARD DOSE: 2.0 - 3.0 Includes: PROPHYLAXIS for venous thrombosis, systemic embolization; TREATMENT for venous thrombosis and/or pulmonary embolus. HIGH RISK: Target INR is 2.5-3.5 for patients with mechanical heart valves. Performing Organization Address City/State/Zipcode Phone Number [facility] [address] [place] [address] [phone] CENTER XR chest 1 view portable / bedside (12/10/2018 7:15 AM CDT)Only the most recent of2 resultswithin the time period is included. Specimen Narrative Performed At FINAL REPORT [facility] History: Outside or presumptive diagnosis of pneumomediastinum. [...] MD Report Verified Date/Time:12/10/2018 20:13:39 Reading Location: [address] Reading Room Procedure Note Interface, External [...] Report Verified Date/Time: 12/10/2018 20:13:39 Reading Location: [address] Reading Room Performing Organization Address City/State/Zipcode Phone Number [facility] US abdominal with doppler (10/31/2018 9:52 AM CDT) Specimen Narrative Performed At FINAL REPORT [facility] Abdominal Doppler Ultrasound Clinical Diagnosis: Portal [...] MD Report Verified Date/Time:10/31/2018 10:43:58 Reading Location: [address] Ultrasound Reading Room Procedure Note Interface, [...] Verified Date/Time: 10/31/2018 10:43:58 Reading Location: [facility] P0[facility] Ultrasound Reading Room Performing Organization Address City/State/Zipcode Phone Number [facility] Hemoglobin A1c (10/30/2018 3:54 AM CDT) Hemoglobin A1C 4.9 4.3 - 6.1 % [facility] CENTER Specimen Blood Performing Organization Address City/[facility]/Zipcode Phone Number [place] [phone] [place] [address] [phone] CENTER XR abdomen / KUB 1 view (10/29/2018 1:13 PM CDT) Specimen Narrative Performed At FINAL REPORT [facility] TECHNIQUE: Supine radiographs of the abdomen dated 10/29/2018. HISTORY: Abdominal distention. COMPARISON: None IMPRESSION: No air-filled, dilated loops of bowel to suggest obstruction. No free intraperitoneal air. No abnormal soft tissue mass or calcification. Signed: Nancy Concepcion MD Report Verified Date/Time:10/29/2018 14:17:17 Reading Location: [facility] Radiology Reading Room Procedure Note Interface, External Ris In - 10/29/2018 2:19 PM CDT FINAL REPORT TECHNIQUE: Supine radiographs of the abdomen dated 10/29/2018. HISTORY: Abdominal distention. COMPARISON: None IMPRESSION: No air-filled, dilated loops of bowel to suggest obstruction. No free intraperitoneal air. No abnormal soft tissue mass or calcification. Signed: Nancy Concepcion MD Report Verified Date/Time: 10/29/2018 14:17:17 Reading Location: [facility] Radiology Reading Room Performing Organization Address City/[facility] Phone Number [facility] Lipid panel (10/29/2018 4:13 AM CDT) Triglycerides 90 mg/dL [facility] Cholesterol 140 mg/dL [facility] HDL 37 mg/dL [facility] LDL Calculated 85 mg/dL [facility] Specimen Blood Narrative Performed At Triglyceride Reference Range: [facility] Low Risk <150 [id number] High Risk 200-499 Very High Risk>=500 Cholesterol Reference Range: Low Risk <200 [id number] High Risk>240 HDL Cholesterol Reference Range: Low Risk >=60 High Risk <40 LDL Cholesterol Reference Range: Optimal<100 Near Tpeebar818-154 [id number] Very High >=190 Performing Organization Address City/State/Zipcode Phone Number [facility] [address] [place] [address] [phone] CENTER STD Panel - CT/GC RNA (10/28/2018 5:53 PM CDT) C. trachomatis RNA, TMA NOT DETECTED [facility] N. gonorrhoeae RNA, TMA NOT DETECTED [facility] Comment: INCORPORATED REFERENCE RANGE:NOT DETECTED This test was performed using the APTIMA(R) COMBO2 Assay (GEN-PROBE). Specimen Urine Narrative Performed At Performing Lab [facility] *[facility] [employer] [facility] [address] [place] [address] Maico Villarreal MD Performing Organization Address [facility] Phone Number [facility] [address] [place] [address] Urinalysis w/Microscopic + Reflex to Culture (10/28/2018 5:52 PM CDT) Color, UA Yellow [facility] Clarity, UA Clear [facility] Specific [place], UA 1.007 1.001 - 1.035 [facility] pH, UA 7.5 5.0 - 8.0 [facility] Protein, UA 20 mg/dL (A) Negative [facility] Glucose, UA Negative Negative [facility] Ketones, UA 20 mg/dL (A) Negative [facility] Bilirubin, UA Negative Negative [facility] Blood, UA Trace (A) Negative [facility] Nitrite, UA Negative Negative [facility] Leukocytes, UA Negative Negative [facility] Urobilinogen, UA 2.0 (H) 0.2 - 1.0 mg/dL [facility] RBC, UA 3 /HPF [facility] WBC, UA <1 /HPF [facility] Mucus Rare [facility] Specimen Source [facility] Specimen Urine Performing Organization Address City/State/Zipcode Phone Number [facility] [address] [place] [address] CENTER Blood Culture - Routine (Right Venipuncture) (10/28/2018 12:40 PM CDT)Only the most recent of2 resultswithin the time period is included. Result No growth in 5 days [facility] Specimen Blood Performing Organization Address [facility] Phone Number [address] [address] [place] Hepatitis A antibody, IgG (10/28/2018 12:22 PM CDT) Hep A IgG Nonreactive Nonreactive [facility] Specimen Blood Performing Organization Address [facility] Phone Number [address] [address] [phone] [place] Vitamin B12 and Folate (10/28/2018 12:22 PM CDT) Vitamin B12 1,678 (H) 213 - 816 pg/mL [facility] Folate 19.4 >=7.0 ng/mL [facility] Specimen Blood Performing Organization Address [facility] Phone Number [address] [address] [phone] CENTER Iron, TIBC, % sat. (without ferritin) (10/28/2018 12:22 PM CDT) Iron 44.0 40.0 - 160.0 ug/dL [facility] TIBC 186 (L) 250 - 450 ug/dL [facility] Iron % Saturation 24 20 - 55 % [facility] Specimen Blood Performing Organization Address City/[facility]/Zipcode Phone Number [address] [address] [phone] CENTER HIV-1 Antigen with HIV-1/2 Antibody (10/28/2018 12:22 PM CDT) HIV-1 Antigen with HIV 1&2 Nonreactive Nonreactive [facility] Antibody [facility] CENTER Specimen Blood Performing Organization Address [facility] Phone Number [address] [address] [phone] CENTER Hepatitis C antibody (10/28/2018 12:22 PM CDT) Hepatitis C Ab Nonreactive Nonreactive [facility] Specimen Blood Performing Organization Address City/[facility] Phone Number [address] [phone] [place] Hepatitis A antibody, IgM (10/28/2018 12:22 PM CDT) Hep A IgM Nonreactive Nonreactive [facility] Specimen Blood Performing Organization Address [facility] Phone Number [address] [phone] [place] Hepatitis B core antibody, total (10/28/2018 12:22 PM CDT) Hep B Core Total Ab Nonreactive Nonreactive [facility] Specimen Blood Performing Organization Address [facility] Phone Number [address] [phone] [place] Hepatitis C PCR, Quantitative (10/28/2018 12:22 PM CDT) HCV PCR, Quantitative HCV RNA not detected HCV RNA not detected [facility] Specimen Blood Narrative Performed At This test uses a Real-Time Polymerase Chain [facility] Reaction (RT-PCR) methodology and was performed using MAR[employer] Ampliprep/MARIANO TaqMan HCV test kit version 2.0 ([employer] Reportable range for this assay is 15 - 100,000,000 IU per mL (1.18 - 8.00 Log IU/mL). Performing Organization Address City/[facility]/Zipcode Phone Number [address] [phone] CENTER RPR (10/28/2018 12:22 PM CDT) RPR Nonreactive Nonreactive [facility] Specimen Blood Performing Organization Address City/[facility]/Zipcode Phone Number [facility] [address] [place] Hepatitis B surface antibody (10/28/2018 12:22 PM CDT) Hep B S Ab 34.5 (H) <8.0 mIU/mL [facility] Specimen Blood Performing Organization Address City/[facility]/Zipcode Phone Number [address] [phone] C[place] Hepatitis B surface antigen (10/28/2018 12:22 PM CDT) hepatitis B Surface Ag Nonreactive Nonreactive [facility] Specimen Blood Performing Organization Address [facility]/Zipcode Phone Number [address] [phone] [place] Ferritin (10/28/2018 12:22 PM CDT) Ferritin 1,698 (H) 5 - 275 ng/mL [facility] Specimen Blood Performing Organization Address City/[facility]/Zipcode Phone Number [address] [phone] CENTER US abdomen limited (09/30/2018 5:40 AM CDT) Specimen Narrative Performed At [facility] Right upper quadrant abdominal ultrasound, 09/30/2018. History: [...] MD Report Verified Date/Time:09/30/2018 08:05:48 Reading Location: [address] Ultrasound Reading Room Procedure Note Interface, [...] be secondary to portal hypertension. Signed: Juan Rmaos MD Report Verified Date/Time: 09/30/2018 08:05:48 Reading Location: [facility] P006 Ultrasound Reading Room Performing Organization Address City/State/Zipcode Phone Number [facility] Procalcitonin (09/30/2018 12:14 AM CDT) Procalcitonin 0.48 (H) <0.05 ng/mL [facility] Specimen Blood Narrative Performed At SEPSIS RISK (ng/mL) [facility] Low:0.05-0.50 Intermediate: 0.51-2.00 High: >=2.01 Performing Organization Address City/[facility] Phone Number [address] [phone] [place] Potassium (09/29/2018 2:14 PM CDT) Potassium 3.4 (L) 3.5 - 5.1 meq/L [facility] Specimen Blood Performing Organization Address [facility] Phone Number [phone] [place] [address] abdomen/pelvis without & with IV contrast (09/29/2018 12:30 PM CDT) Specimen Narrative Performed At FINAL REPORT [facility] CT abdomen with and without contrast. [...] MD Report Verified Date/Time:09/29/2018 12:38:07 Reading Location: [address] Consult Reading Room Procedure Note Interface, [...] Report Verified Date/Time: 09/29/2018 12:38:07 Reading Location: [address] Consult Reading Room Performing Organization Address City/[facility] Phone Number GE RIS Triglycerides (09/29/2018 3:51 AM CDT) Triglycerides 71Comment: Specimen slightly mg/dL [facility] hemolyzed [facility] Specimen Blood Narrative Performed At TRIGLYCERIDE REFERENCE RANGE [facility] Low Risk<150 Borderline Risk 150-199 High [id number] Very High Risk >=500 Performing Organization Address [facility] Phone Number [facility] MEDICAL [address] [place] [address] [phone] CENTER ECG 12 lead (09/29/2018 3:45 AM CDT) Specimen Narrative Performed At Ventricular Rate 155 BPM GE MUSE Atrial Rate 155 BPM P-R Interval 120 ms QRS Duration 88 ms Q-T Interval 326 ms QTC Calculation(Bazett) 523 ms P [place] 60 degrees R [place] 81 degrees T [place] 13 degrees Sinus tachycardia Cannot rule out Anterior infarct , age undetermined T wave abnormality, consider inferolateral ischemia Abnormal ECG No previous ECGs available Confirmed by MD Rosado Roberto ([id number]) on 09/29/2018 2:19:06 PM Procedure Note Interface, External Ris In - 09/29/2018 2:19 PM CDT Ventricular Rate 155 BPM Atrial Rate 155 BPM P-R Interval 120 ms QRS Duration 88 ms Q-T Interval 326 ms QTC Calculation(Bazett) 523 ms P [place] 60 degrees R [place] 81 degrees T [place] 13 degrees Sinus tachycardia Cannot rule out Anterior infarct , age undetermined T wave abnormality, consider inferolateral ischemia Abnormal ECG No previous ECGs available Confirmed by MD Rosado Roberto ([id number]) on 09/29/2018 2:19:06 PM Performing Organization Address City/State/Zipcode Phone Number GE MUSE after 03/01/2018 Advance Directives For more information, please contact:[address] [phone] Code Status Date Activated Date Inactivated Comments Full Code 02/12/2019 12:35 PM 02/15/2019 2:48 PM This code status was determined by: Patient Full Code 10/27/2018 11:55 PM 11/01/2018 6:16 PM This code status was determined by: Patient Full Code 09/29/2018 3:15 AM 10/02/2018 6:49 PM This code status was determined by: Patient
--- OUTSIDE RECORDS SUMMARY | 2019-03-02 18:01 | XMS REPORT ---
:1985 Author Organization [facility] Address [address] [place] [address] Care Team Providers Name Role Phone JOSE [...] (BEAKER) (test 90 mg/dL 70-[address] [facility] [address] [facility] lsei=[id number]) [facility] [address] COMPREHENSIVE METABOLIC [id number] 07:29:00 Test Item Value Reference Range Comments TOTAL PROTEIN (BEAKER) 5.7 gm/dL 6.0-8.3 (test xzwu=903) ALBUMIN (BEAKER) (test 2.5 g/dL 3.5-5.0 bppm=6443) ALKALINE PHOSPHATASE 411 U/L 40-150 (BEAKER) (test jvci=910) BILIRUBIN TOTAL (BEAKER) 1.7 mg/dL 0.2-1.2 (test ymvg=324) SODIUM (BEAKER) (test 139 meq/L 136-145 fjte=113) POTASSIUM (BEAKER) (test 3.1 meq/L 3.5-5.1 mjpv=391) CHLORIDE (BEAKER) (test 105 meq/L 98-107 rswj=487) CO2 (BEAKER) (test 24 meq/L 22-29 dukk=318) BLOOD UREA NITROGEN 3 mg/dL 7-21 (BEAKER) (test mzzn=332) CREATININE (BEAKER) (test 0.61 mg/dL 0.57-1.25 fizp=906) GLUCOSE RANDOM (BEAKER) 95 mg/dL 70-105 (test qcdd=233) CALCIUM (BEAKER) (test 6.8 mg/dL 8.4-10.2 vdxo=805) AST (SGOT) (BEAKER) (test 173 U/L 5-34 ygxf=179) ALT (SGPT) (BEAKER) (test 53 U/L 6-55 sutr=417) EGFR (BEAKER) (test 153 mL/min/1.73 sq ESTIMATED GFR IS NOT evgw=9178) m ACCURATE CREATININE CLEARANCE IN PREDICTING GLOMERULAR FILTRATION RATE. ESTIMATED GFR IS NOT APPLICABLE FOR DIALYSIS PATIENTS. [id number] 07:28:00 Test Item Value Reference Range Comments PHOSPHORUS (BEAKER) (test mnjw=500) 2.4 mg/dL 2.3-4.7 [id number] 07:28:00 Test Item Value Reference Range Comments MAGNESIUM (BEAKER) (test mrbc=394) 1.8 mg/dL 1.6-2.6 HEPATIC FUNCTION [id number] 07:28:00 Test Item Value Reference Range Comments TOTAL PROTEIN (BEAKER) (test axri=318) 5.7 gm/dL 6.0-8.3 ALBUMIN (BEAKER) (test kgaa=0642) 2.5 g/dL 3.5-5.0 BILIRUBIN TOTAL (BEAKER) (test cudt=682) 1.7 mg/dL 0.2-1.2 BILIRUBIN DIRECT (BEAKER) (test sump=216) 1.3 mg/dL 0.1-0.5 ALKALINE PHOSPHATASE (BEAKER) (test bqea=006) 411 U/L 40-150 AST (SGOT) (BEAKER) (test veuo=079) 173 U/L 5-34 ALT (SGPT) (BEAKER) (test mkoc=732) 53 U/L 6-55 [id number] 07:28:00 Test Item Value Reference Range Comments LIPASE (BEAKER) (test fxni=271) 231 U/L 8-78 CBC W/PLT COUNT & AUTO [id number] 07:10:00 Test Item Value Reference Range Comments WHITE BLOOD CELL COUNT (BEAKER) (test evep=166) 4.5 K/ L 3.5-10.5 RED BLOOD CELL COUNT (BEAKER) (test mfwq=124) 2.76 M/ L 4.63-6.08 HEMOGLOBIN (BEAKER) (test rvrg=590) 9.2 GM/DL 13.7-17.5 HEMATOCRIT (BEAKER) (test xyxi=103) 29.2 % 40.1-51.0 MEAN CORPUSCULAR VOLUME (BEAKER) (test uosv=806) 105.8 fL 79.0-92.2 MEAN CORPUSCULAR HEMOGLOBIN (BEAKER) (test 33.3 pg 25.7-32.2 zgvt=982) MEAN CORPUSCULAR HEMOGLOBIN CONC (BEAKER) (test 31.5 GM/DL 32.3-36.5 tlop=480) RED CELL DISTRIBUTION WIDTH (BEAKER) (test 21.9 % 11.6-14.4 fgly=510) PLATELET COUNT (BEAKER) (test egsg=757) 150 K/CU MM 150-450 MEAN PLATELET VOLUME (BEAKER) (test meje=459) 10.5 fL 9.4-12.4 NUCLEATED RED BLOOD CELLS (BEAKER) (test 0 /100 WBC 0-0 epzc=730) NEUTROPHILS RELATIVE PERCENT (BEAKER) (test 65 % agud=309) LYMPHOCYTES RELATIVE PERCENT (BEAKER) (test 17 % ahrw=345) MONOCYTES RELATIVE PERCENT (BEAKER) (test 13 % zzds=976) EOSINOPHILS RELATIVE PERCENT (BEAKER) (test 2 % qkyk=366) BASOPHILS RELATIVE PERCENT (BEAKER) (test 1 % quoc=842) NEUTROPHILS ABSOLUTE COUNT (BEAKER) (test 2.91 K/ L 1.78-5.38 yofh=300) LYMPHOCYTES ABSOLUTE COUNT (BEAKER) (test 0.78 K/ L 1.32-3.57 kont=828) MONOCYTES ABSOLUTE COUNT (BEAKER) (test 0.59 K/ L 0.30-0.82 otfn=294) EOSINOPHILS ABSOLUTE COUNT (BEAKER) (test 0.11 K/ L 0.04-0.54 abmq=936) BASOPHILS ABSOLUTE COUNT (BEAKER) (test 0.05 K/ L 0.01-0.08 bekv=140) IMMATURE GRANULOCYTES-RELATIVE PERCENT (BEAKER) 2 % 0-1 (test cjhs=2216) COMPREHENSIVE METABOLIC [id number] 04:23:00 Test Item Value Reference Range Comments TOTAL PROTEIN (BEAKER) 5.5 gm/dL 6.0-8.3 (test ozhe=757) ALBUMIN (BEAKER) (test 2.5 g/dL 3.5-5.0 cdkm=6133) ALKALINE PHOSPHATASE 453 U/L 40-150 (BEAKER) (test fkrg=929) BILIRUBIN TOTAL (BEAKER) 2.0 mg/dL 0.2-1.2 (test tudk=475) SODIUM (BEAKER) (test 138 meq/L 136-145 gtrp=531) POTASSIUM (BEAKER) (test 3.2 meq/L 3.5-5.1 jkfj=013) CHLORIDE (BEAKER) (test 104 meq/L 98-107 fkzx=426) CO2 (BEAKER) (test 26 meq/L 22-29 djfp=847) BLOOD UREA NITROGEN 3 mg/dL 7-21 (BEAKER) (test utpg=403) CREATININE (BEAKER) (test 0.51 mg/dL 0.57-1.25 jvzv=519) GLUCOSE RANDOM (BEAKER) 104 mg/dL 70-105 (test lusg=932) CALCIUM (BEAKER) (test 7.0 mg/dL 8.4-10.2 geuu=108) AST (SGOT) (BEAKER) (test 166 U/L 5-34 kjra=690) ALT (SGPT) (BEAKER) (test 52 U/L 6-55 xwcx=142) EGFR (BEAKER) (test 188 mL/min/1.73 sq ESTIMATED GFR IS NOT utxl=1400) m ACCURATE CREATININE CLEARANCE IN PREDICTING GLOMERULAR FILTRATION RATE. ESTIMATED GFR IS NOT APPLICABLE FOR DIALYSIS PATIENTS. [id number] 04:21:00 Test Item Value Reference Range Comments PHOSPHORUS (BEAKER) (test pcep=024) 2.0 mg/dL 2.3-4.7 [id number] 04:21:00 Test Item Value Reference Range Comments MAGNESIUM (BEAKER) (test pnbo=715) 1.5 mg/dL 1.6-2.6 HEPATIC FUNCTION [id number] 04:21:00 Test Item Value Reference Range Comments TOTAL PROTEIN (BEAKER) (test rbwq=470) 5.5 gm/dL 6.0-8.3 ALBUMIN (BEAKER) (test byjd=3357) 2.5 g/dL 3.5-5.0 BILIRUBIN TOTAL (BEAKER) (test dfxp=678) 2.0 mg/dL 0.2-1.2 BILIRUBIN DIRECT (BEAKER) (test ekgt=671) 1.5 mg/dL 0.1-0.5 ALKALINE PHOSPHATASE (BEAKER) (test pibd=841) 453 U/L 40-150 AST (SGOT) (BEAKER) (test aovg=643) 166 U/L 5-34 ALT (SGPT) (BEAKER) (test fmgy=586) 52 U/L 6-55 [id number] 04:21:00 Test Item Value Reference Range Comments LIPASE (BEAKER) (test cuyf=368) 283 U/L 8-78 CBC W/PLT COUNT & AUTO [id number] 04:19:00 Test Item Value Reference Range Comments WHITE BLOOD CELL COUNT (BEAKER) (test syjg=093) 4.6 K/ L 3.5-10.5 RED BLOOD CELL COUNT (BEAKER) (test wktb=689) 2.82 M/ L 4.63-6.08 HEMOGLOBIN (BEAKER) (test zhsd=180) 9.4 GM/DL 13.7-17.5 HEMATOCRIT (BEAKER) (test rscl=338) 28.9 % 40.1-51.0 MEAN CORPUSCULAR VOLUME (BEAKER) (test buin=761) 102.5 fL 79.0-92.2 MEAN CORPUSCULAR HEMOGLOBIN (BEAKER) (test 33.3 pg 25.7-32.2 djln=362) MEAN CORPUSCULAR HEMOGLOBIN CONC (BEAKER) (test 32.5 GM/DL 32.3-36.5 fpts=194) RED CELL DISTRIBUTION WIDTH (BEAKER) (test 21.8 % 11.6-14.4 kkul=470) PLATELET COUNT (BEAKER) (test nhna=000) 141 K/CU MM 150-450 MEAN PLATELET VOLUME (BEAKER) (test dtgh=643) 9.5 fL 9.4-12.4 NUCLEATED RED BLOOD CELLS (BEAKER) (test 0 /100 WBC 0-0 lqvc=800) NEUTROPHILS RELATIVE PERCENT (BEAKER) (test 63 % xihr=120) LYMPHOCYTES RELATIVE PERCENT (BEAKER) (test 22 % xzsp=150) MONOCYTES RELATIVE PERCENT (BEAKER) (test 10 % taxe=222) EOSINOPHILS RELATIVE PERCENT (BEAKER) (test 3 % tebd=854) BASOPHILS RELATIVE PERCENT (BEAKER) (test 1 % dxcr=494) NEUTROPHILS ABSOLUTE COUNT (BEAKER) (test 2.86 K/ L 1.78-5.38 dton=867) LYMPHOCYTES ABSOLUTE COUNT (BEAKER) (test 1.02 K/ L 1.32-3.57 xvmy=242) MONOCYTES ABSOLUTE COUNT (BEAKER) (test 0.44 K/ L 0.30-0.82 mqkz=301) EOSINOPHILS ABSOLUTE COUNT (BEAKER) (test 0.12 K/ L 0.04-0.54 wkgh=682) BASOPHILS ABSOLUTE COUNT (BEAKER) (test 0.05 K/ L 0.01-0.08 ggpx=097) IMMATURE GRANULOCYTES-RELATIVE PERCENT (BEAKER) 2 % 0-1 (test ustq=7638) HEMOGLOBIN AND [id number] 03:57:00 Test Item Value Reference Range Comments HEMOGLOBIN (BEAKER) (test vrdn=730) 9.4 GM/DL 13.7-17.5 HEMATOCRIT (BEAKER) (test oldh=323) 28.9 % 40.1-51.0 HEMOGLOBIN AND [id number] 11:59:00 Test Item Value Reference Range Comments HEMOGLOBIN (BEAKER) (test cfrz=386) 8.4 GM/DL 13.7-17.5 HEMATOCRIT (BEAKER) (test ryjw=547) 24.7 % 40.1-51.0 [id number] 09:15:00 Test Item Value Reference Range Comments LIPASE (BEAKER) (test gsyo=219) 214 U/L 8-78 HEPATIC FUNCTION [id number] 06:09:00 Test Item Value Reference Range Comments TOTAL PROTEIN (BEAKER) (test ypvf=941) 5.1 gm/dL 6.0-8.3 ALBUMIN (BEAKER) (test jzcn=0543) 2.4 g/dL 3.5-5.0 BILIRUBIN TOTAL (BEAKER) (test jfsk=172) 2.0 mg/dL 0.2-1.2 BILIRUBIN DIRECT (BEAKER) (test kikv=494) 1.4 mg/dL 0.1-0.5 ALKALINE PHOSPHATASE (BEAKER) (test jixh=889) 418 U/L 40-150 AST (SGOT) (BEAKER) (test fzwc=163) 147 U/L 5-34 ALT (SGPT) (BEAKER) (test jvhv=076) 51 U/L 6-55 CBC (HEMOGRAM ONLY)2019-02-13 05:04:00 Test Item Value Reference Range Comments WHITE BLOOD CELL COUNT (BEAKER) (test xnpm=318) 4.8 K/ L 3.5-10.5 RED BLOOD CELL COUNT (BEAKER) (test yeed=409) 2.41 M/ L 4.63-6.08 HEMOGLOBIN (BEAKER) (test ftpd=845) 8.1 GM/DL 13.7-17.5 HEMATOCRIT (BEAKER) (test kgqj=432) 24.1 % 40.1-51.0 MEAN CORPUSCULAR VOLUME (BEAKER) (test uyiw=467) 100.0 fL 79.0-92.2 MEAN CORPUSCULAR HEMOGLOBIN (BEAKER) (test 33.6 pg 25.7-32.2 olss=545) MEAN CORPUSCULAR HEMOGLOBIN CONC (BEAKER) (test 33.6 GM/DL 32.3-36.5 ralh=102) RED CELL DISTRIBUTION WIDTH (BEAKER) (test 22.4 % 11.6-14.4 iqcf=250) PLATELET COUNT (BEAKER) (test jgoe=017) 135 K/CU MM 150-450 MEAN PLATELET VOLUME (BEAKER) (test tric=289) 10.0 fL 9.4-12.4 NUCLEATED RED BLOOD CELLS (BEAKER) (test 1 /100 WBC 0-0 lpcn=615) BASIC METABOLIC [id number] 02:50:00 Test Item Value Reference Range Comments SODIUM (BEAKER) (test 137 meq/L 136-145 nvui=811) POTASSIUM (BEAKER) (test 3.1 meq/L 3.5-5.1 kceh=111) CHLORIDE (BEAKER) (test 104 meq/L 98-107 fygd=141) CO2 (BEAKER) (test 24 meq/L 22-29 giry=723) BLOOD UREA NITROGEN 3 mg/dL 7-21 (BEAKER) (test qlpy=842) CREATININE (BEAKER) (test 0.50 mg/dL 0.57-1.25 dphr=685) GLUCOSE RANDOM (BEAKER) 124 mg/dL 70-105 (test zkdj=459) CALCIUM (BEAKER) (test 6.5 mg/dL 8.4-10.2 quhv=408) EGFR (BEAKER) (test 193 mL/min/1.73 sq m ESTIMATED GFR IS NOT smws=7923) ACCURATE CREATININE CLEARANCE IN PREDICTING GLOMERULAR FILTRATION RATE. ESTIMATED GFR IS NOT APPLICABLE FOR DIALYSIS PATIENTS. [id number] 02:14:00 Test Item Value Reference Range Comments PHOSPHORUS (BEAKER) (test xndh=726) 2.6 mg/dL 2.3-4.7 [id number] 02:14:00 Test Item Value Reference Range Comments MAGNESIUM (BEAKER) (test uszj=576) 1.9 mg/dL 1.6-2.6 HEMOGLOBIN AND [id number] 01:13:00 Test Item Value Reference Range Comments HEMOGLOBIN (BEAKER) (test fgwy=366) 8.1 GM/DL 13.7-17.5 HEMATOCRIT (BEAKER) (test pgne=676) 23.8 % 40.1-51.0 POCT-GLUCOSE [id number] 20:56:00 Test Item Value Reference Range Comments POC-GLUCOSE METER (BEAKER) 105 mg/dL 70-[address] [facility] [address] [place] [address] (test lisv=8857) [facility] [address] COMPREHENSIVE METABOLIC [id number] 14:51:00 Test Item Value Reference Range Comments TOTAL PROTEIN (BEAKER) 6.0 gm/dL 6.0-8.3 (test efnc=470) ALBUMIN (BEAKER) (test 2.8 g/dL 3.5-5.0 ijay=5137) ALKALINE PHOSPHATASE 489 U/L 40-150 (BEAKER) (test qsaz=244) BILIRUBIN TOTAL (BEAKER) 2.7 mg/dL 0.2-1.2 (test dxog=534) SODIUM (BEAKER) (test 141 meq/L 136-145 zltt=663) POTASSIUM (BEAKER) (test 2.6 meq/L 3.5-5.1 uwbt=371) CHLORIDE (BEAKER) (test 103 meq/L 98-107 jlea=508) CO2 (BEAKER) (test 28 meq/L 22-29 ldmg=614) BLOOD UREA NITROGEN 5 mg/dL 7-21 (BEAKER) (test dzpd=418) CREATININE (BEAKER) (test 0.54 mg/dL 0.57-1.25 zicd=475) GLUCOSE RANDOM (BEAKER) 88 mg/dL 70-105 (test jctu=136) CALCIUM (BEAKER) (test 7.1 mg/dL 8.4-10.2 mink=492) AST (SGOT) (BEAKER) (test 168 U/L 5-34 snwt=037) ALT (SGPT) (BEAKER) (test 61 U/L 6-55 clht=737) EGFR (BEAKER) (test 176 mL/min/1.73 sq ESTIMATED GFR IS NOT jecm=2056) m ACCURATE CREATININE CLEARANCE IN PREDICTING GLOMERULAR FILTRATION RATE. ESTIMATED GFR IS NOT APPLICABLE FOR DIALYSIS PATIENTS. Specimen slightly [id number] 14:51:00 Test Item Value Reference Range Comments PHOSPHORUS (BEAKER) (test ldxr=143) 0.9 mg/dL 2.3-4.7 [id number] 14:41:00 Test Item Value Reference Range Comments MAGNESIUM (BEAKER) (test ebfu=285) 1.3 mg/dL 1.6-2.6 [id number] 14:41:00 Test Item Value Reference Range Comments AMYLASE (BEAKER) (test txsl=111) 160 U/L 25-125 Specimen slightly ictericLACTATE DEHYDROGENASE (LDH)2019-02-12 14:41:00 Test Item Value Reference Range Comments LACTATE DEHYDROGENASE (BEAKER) (test joro=826) 572 U/L 125-220 [id number] 14:41:00 Test Item Value Reference Range Comments LIPASE (BEAKER) (test jvke=334) 562 U/L 8-78 Specimen slightly [id number] 14:39:00 Test Item Value Reference Range Comments ETHANOL (BEAKER) (test cyqf=910) < mg/dL <=10 [id number] 14:27:00 Test Item Value Reference Range Comments D-DIMER QUANTITATIVE (BEAKER) (test flyt=884) 4.23 MG/L FEU <0.50 Intended Use: The [...] of thrombosis is within 95-100% range.LACTIC ACID, [id number] 14:25:00 Test Item Value Reference Range Comments LACTATE BLOOD VENOUS (2) (BEAKER) (test 1.5 mmol/L 0.5-2.2 krmy=5573) [id number] 14:21:00 Test Item Value Reference Range Comments AMMONIA (BEAKER) (test rsxa=404) 50 mol/L 18-72 [id number] 14:17:00 Test Item Value Reference Range Comments PROTIME (BEAKER) (test manq=112) 17.8 seconds 11.9-14.2 INR (BEAKER) (test fgam=390) 1.6 <=5.9 PARTIAL THROMBOPLASTIN TIME (BEAKER) (test 34.9 seconds 22.5-36.0 rjrj=134) Effective 12/11/2018: PT Reference Range ChangeNew: 11.9-14.2 Previous: 11.7- 14.7RECOMMENDED COUMADIN/WARFARIN INR THERAPY RANGESSTANDARD DOSE: 2.0-3.0 Includes: PROPHYLAXIS for venous thrombosis, systemic embolization; TREATMENT for venous thrombosis and/or pulmonary embolus.HIGH RISK: Target INR is2.5-3.5 for patients wiht mechanical heart valves.[id number] 14:17:00 Test Item Value Reference Range Comments FIBRINOGEN LEVEL (BEAKER) (test bazo=969) 304 mg/dl 225-434 CBC (HEMOGRAM ONLY)2019-02-12 14:13:00 Test Item Value Reference Range Comments WHITE BLOOD CELL COUNT 5.0 K/ L 3.5-10.5 (BEAKER) (test oivh=163) RED BLOOD CELL COUNT (BEAKER) 2.64 M/ L 4.63-6.08 (test prqd=138) HEMOGLOBIN (BEAKER) (test 9.0 GM/DL 13.7-17.5 exat=656) HEMATOCRIT (BEAKER) (test 27.0 % 40.1-51.0 cdjo=699) MEAN CORPUSCULAR VOLUME 102.3 fL 79.0-92.2 (BEAKER) (test bspo=035) MEAN CORPUSCULAR HEMOGLOBIN 34.1 pg 25.7-32.2 (BEAKER) (test nqcw=643) MEAN CORPUSCULAR HEMOGLOBIN 33.3 GM/DL 32.3-36.5 CONC (BEAKER) (test dupp=523) RED CELL DISTRIBUTION WIDTH % 11.6-14.4 Unable to report due to (BEAKER) (test ozqd=284) abnormal Platelet population distribution. PLATELET COUNT (BEAKER) (test 146 K/CU MM 150-450 grjx=842) MEAN PLATELET VOLUME (BEAKER) 10.0 fL 9.4-12.4 (test sslu=658) NUCLEATED RED BLOOD CELLS 1 /100 WBC 0-0 (BEAKER) (test tnfs=352) CBC W/PLT COUNT & AUTO [id number] 05:36:00 Test Item Value Reference Range Comments WHITE BLOOD CELL COUNT (BEAKER) (test ztan=665) 3.1 K/ L 3.5-10.5 RED BLOOD CELL COUNT (BEAKER) (test xafq=293) 3.39 M/ L 4.63-6.08 HEMOGLOBIN (BEAKER) (test romr=544) 11.5 GM/DL 13.7-17.5 HEMATOCRIT (BEAKER) (test kprk=340) 33.7 % 40.1-51.0 MEAN CORPUSCULAR VOLUME (BEAKER) (test asxt=593) 99.4 fL 79.0-92.2 MEAN CORPUSCULAR HEMOGLOBIN (BEAKER) (test 33.9 pg 25.7-32.2 upnx=957) MEAN CORPUSCULAR HEMOGLOBIN CONC (BEAKER) (test 34.1 GM/DL 32.3-36.5 vpuk=593) RED CELL DISTRIBUTION WIDTH (BEAKER) (test 12.8 % 11.6-14.4 icch=967) PLATELET COUNT (BEAKER) (test ugee=690) 130 K/CU MM 150-450 MEAN PLATELET VOLUME (BEAKER) (test kprk=241) 10.4 fL 9.4-12.4 NUCLEATED RED BLOOD CELLS (BEAKER) (test 0 /100 WBC 0-0 fblr=598) NEUTROPHILS RELATIVE PERCENT (BEAKER) (test 51 % jnzn=602) LYMPHOCYTES RELATIVE PERCENT (BEAKER) (test 31 % vgcr=489) MONOCYTES RELATIVE PERCENT (BEAKER) (test 12 % knkl=955) EOSINOPHILS RELATIVE PERCENT (BEAKER) (test 4 % iens=667) BASOPHILS RELATIVE PERCENT (BEAKER) (test 1 % jhlm=117) NEUTROPHILS ABSOLUTE COUNT (BEAKER) (test 1.61 K/ L 1.78-5.38 gtqc=307) LYMPHOCYTES ABSOLUTE COUNT (BEAKER) (test 0.98 K/ L 1.32-3.57 bnkb=565) MONOCYTES ABSOLUTE COUNT (BEAKER) (test 0.38 K/ L 0.30-0.82 eqee=432) EOSINOPHILS ABSOLUTE COUNT (BEAKER) (test 0.11 K/ L 0.04-0.54 hamd=709) BASOPHILS ABSOLUTE COUNT (BEAKER) (test 0.04 K/ L 0.01-0.08 unjf=306) IMMATURE GRANULOCYTES-RELATIVE PERCENT (BEAKER) 1 % 0-1 (test ddwg=7574) MR, ABDOMEN, [id number] 13:31:00FINAL REPORT MRCP, MRI of abdomen without [...] [place] Verified Date/Time: 12/12/2018 13:31:00 Reading Location: [facility] B1 C013Y CT Body Reading Room COMPREHENSIVE METABOLIC [id number] 09:56:00 Test Item Value Reference Range Comments TOTAL PROTEIN (BEAKER) 5.5 gm/dL 6.0-8.3 (test ylhe=007) ALBUMIN (BEAKER) (test 3.1 g/dL 3.5-5.0 esym=9626) ALKALINE PHOSPHATASE 116 U/L 40-150 (BEAKER) (test vbdd=951) BILIRUBIN TOTAL (BEAKER) 1.9 mg/dL 0.2-1.2 (test yrzu=138) SODIUM (BEAKER) (test 139 meq/L 136-145 bfjx=862) POTASSIUM (BEAKER) (test 3.0 meq/L 3.5-5.1 ayvc=613) CHLORIDE (BEAKER) (test 107 meq/L 98-107 pghc=036) CO2 (BEAKER) (test 23 meq/L 22-29 jzit=905) BLOOD UREA NITROGEN 4 mg/dL 7-21 (BEAKER) (test jlqj=644) CREATININE (BEAKER) (test 0.56 mg/dL 0.57-1.25 majy=720) GLUCOSE RANDOM (BEAKER) 116 mg/dL 70-105 (test nkcg=215) CALCIUM (BEAKER) (test 7.4 mg/dL 8.4-10.2 gtgh=879) AST (SGOT) (BEAKER) (test 297 U/L 5-34 oqxy=560) ALT (SGPT) (BEAKER) (test 173 U/L 6-55 fqdn=976) EGFR (BEAKER) (test 169 mL/min/1.73 sq ESTIMATED GFR IS NOT bqde=8988) m ACCURATE CREATININE CLEARANCE IN PREDICTING GLOMERULAR FILTRATION RATE. ESTIMATED GFR IS NOT APPLICABLE FOR DIALYSIS PATIENTS. CBC W/PLT COUNT & AUTO [id number] 04:42:00 Test Item Value Reference Range Comments WHITE BLOOD CELL COUNT (BEAKER) (test vwds=882) 3.1 K/ L 3.5-10.5 RED BLOOD CELL COUNT (BEAKER) (test dcyw=972) 3.09 M/ L 4.63-6.08 HEMOGLOBIN (BEAKER) (test ktjf=485) 10.7 GM/DL 13.7-17.5 HEMATOCRIT (BEAKER) (test snln=856) 30.5 % 40.1-51.0 MEAN CORPUSCULAR VOLUME (BEAKER) (test kmza=636) 98.7 fL 79.0-92.2 MEAN CORPUSCULAR HEMOGLOBIN (BEAKER) (test 34.6 pg 25.7-32.2 weov=849) MEAN CORPUSCULAR HEMOGLOBIN CONC (BEAKER) (test 35.1 GM/DL 32.3-36.5 axkq=993) RED CELL DISTRIBUTION WIDTH (BEAKER) (test 12.4 % 11.6-14.4 asha=078) PLATELET COUNT (BEAKER) (test hgnt=860) 99 K/CU MM 150-450 MEAN PLATELET VOLUME (BEAKER) (test iftq=185) 11.0 fL 9.4-12.4 NUCLEATED RED BLOOD CELLS (BEAKER) (test 0 /100 WBC 0-0 mjfe=148) NEUTROPHILS RELATIVE PERCENT (BEAKER) (test 60 % saak=629) LYMPHOCYTES RELATIVE PERCENT (BEAKER) (test 26 % qsrj=627) MONOCYTES RELATIVE PERCENT (BEAKER) (test 11 % hddr=360) EOSINOPHILS RELATIVE PERCENT (BEAKER) (test 2 % lcdg=808) BASOPHILS RELATIVE PERCENT (BEAKER) (test 1 % nwgm=330) NEUTROPHILS ABSOLUTE COUNT (BEAKER) (test 1.84 K/ L 1.78-5.38 lxme=631) LYMPHOCYTES ABSOLUTE COUNT (BEAKER) (test 0.81 K/ L 1.32-3.57 afkd=872) MONOCYTES ABSOLUTE COUNT (BEAKER) (test ahne=259) 0.34 K/ L 0.30-0.82 EOSINOPHILS ABSOLUTE COUNT (BEAKER) (test 0.06 K/ L 0.04-0.54 sakg=070) BASOPHILS ABSOLUTE COUNT (BEAKER) (test gthg=877) 0.03 K/ L 0.01-0.08 IMMATURE GRANULOCYTES-RELATIVE PERCENT (BEAKER) 0 % 0-1 (test yucp=6034) FL, ESOPH, SWALLOW FUNCTION, WITH CINE OR [id number] 12:02:00Reason for exam:->pneumomediastinum, rule out esophageal perforationFINAL [...] Verified Date/Time: 12/11/2018 12:02: 17 Reading Location: [address] Ortho Consult Reading Room BASIC METABOLIC [id number] 07:31:00 Test Item Value Reference Range Comments SODIUM (BEAKER) (test 139 meq/L 136-145 bdoi=580) POTASSIUM (BEAKER) (test 3.4 meq/L 3.5-5.1 Specimen slightly hspx=419) hemolyzed CHLORIDE (BEAKER) (test 103 meq/L 98-107 swkt=296) CO2 (BEAKER) (test 20 meq/L 22-29 yatd=940) BLOOD UREA NITROGEN 18 mg/dL 7-21 (BEAKER) (test ulrl=849) CREATININE (BEAKER) (test 0.73 mg/dL 0.57-1.25 Specimen slightly rnfm=268) hemolyzed GLUCOSE RANDOM (BEAKER) 67 mg/dL 70-105 (test xvdi=451) CALCIUM (BEAKER) (test 8.6 mg/dL 8.4-10.2 ehtn=678) EGFR (BEAKER) (test 125 mL/min/1.73 sq m ESTIMATED GFR IS NOT dzqo=8988) ACCURATE CREATININE CLEARANCE IN PREDICTING GLOMERULAR FILTRATION RATE. ESTIMATED GFR IS NOT APPLICABLE FOR DIALYSIS PATIENTS. CBC W/PLT COUNT & AUTO [id number] 07:12:00 Test Item Value Reference Range Comments WHITE BLOOD CELL COUNT (BEAKER) (test zyzl=307) 4.6 K/ L 3.5-10.5 RED BLOOD CELL COUNT (BEAKER) (test czaq=987) 3.19 M/ L 4.63-6.08 HEMOGLOBIN (BEAKER) (test yvij=054) 11.1 GM/DL 13.7-17.5 HEMATOCRIT (BEAKER) (test bwlk=952) 31.0 % 40.1-51.0 MEAN CORPUSCULAR VOLUME (BEAKER) (test rkwx=050) 97.2 fL 79.0-92.2 MEAN CORPUSCULAR HEMOGLOBIN (BEAKER) (test 34.8 pg 25.7-32.2 wlul=542) MEAN CORPUSCULAR HEMOGLOBIN CONC (BEAKER) (test 35.8 GM/DL 32.3-36.5 pxhp=159) RED CELL DISTRIBUTION WIDTH (BEAKER) (test 13.0 % 11.6-14.4 nogh=521) PLATELET COUNT (BEAKER) (test gmty=890) 103 K/CU MM 150-450 MEAN PLATELET VOLUME (BEAKER) (test zema=061) 11.0 fL 9.4-12.4 NUCLEATED RED BLOOD CELLS (BEAKER) (test 0 /100 WBC 0-0 betd=327) NEUTROPHILS RELATIVE PERCENT (BEAKER) (test 73 % qrfm=664) LYMPHOCYTES RELATIVE PERCENT (BEAKER) (test 16 % qgsv=100) MONOCYTES RELATIVE PERCENT (BEAKER) (test 9 % asvv=350) EOSINOPHILS RELATIVE PERCENT (BEAKER) (test 1 % ptvl=388) BASOPHILS RELATIVE PERCENT (BEAKER) (test 0 % tkxa=356) NEUTROPHILS ABSOLUTE COUNT (BEAKER) (test 3.36 K/ L 1.78-5.38 iyiq=464) LYMPHOCYTES ABSOLUTE COUNT (BEAKER) (test 0.75 K/ L 1.32-3.57 duqo=107) MONOCYTES ABSOLUTE COUNT (BEAKER) (test 0.41 K/ L 0.30-0.82 lpgs=889) EOSINOPHILS ABSOLUTE COUNT (BEAKER) (test 0.04 K/ L 0.04-0.54 xqwp=067) BASOPHILS ABSOLUTE COUNT (BEAKER) (test 0.02 K/ L 0.01-0.08 itpo=477) IMMATURE GRANULOCYTES-RELATIVE PERCENT (BEAKER) 1 % 0-1 (test clsj=9267) RAD, CHEST, 1 VIEW, NON [id number] 20:13:00Reason for exam:-> pneumomediastinumShould this be performed [...] Verified Date /Time: 12/10/2018 20:13:39 Reading Location: [address] Reading Room [id number] 19:12:00 Test Item Value Reference Range Comments MAGNESIUM (BEAKER) (test 1.8 mg/dL 1.6-2.6 Specimen slightly hemolyzed fnlv=108) COMPREHENSIVE METABOLIC [id number] 19:12:00 Test Item Value Reference Range Comments TOTAL PROTEIN (BEAKER) 6.3 gm/dL 6.0-8.3 Specimen slightly (test apig=040) hemolyzed ALBUMIN (BEAKER) (test 3.7 g/dL 3.5-5.0 Specimen slightly wxky=5761) hemolyzed ALKALINE PHOSPHATASE 129 U/L 40-150 (BEAKER) (test azcx=645) BILIRUBIN TOTAL (BEAKER) 2.9 mg/dL 0.2-1.2 Specimen slightly (test ytqb=019) hemolyzed SODIUM (BEAKER) (test 137 meq/L 136-145 mayc=216) POTASSIUM (BEAKER) (test 2.7 meq/L 3.5-5.1 Specimen slightly ofdj=374) hemolyzed CHLORIDE (BEAKER) (test 99 meq/L 98-107 xewz=615) CO2 (BEAKER) (test 23 meq/L 22-29 vbdw=067) BLOOD UREA NITROGEN 22 mg/dL 7-21 (BEAKER) (test kvsh=619) CREATININE (BEAKER) (test 1.28 mg/dL 0.57-1.25 Specimen slightly pguc=396) hemolyzed GLUCOSE RANDOM (BEAKER) 78 mg/dL 70-105 (test ipfo=367) CALCIUM (BEAKER) (test 8.5 mg/dL 8.4-10.2 txfs=854) AST (SGOT) (BEAKER) (test 502 U/L 5-34 Specimen slightly dfxb=494) hemolyzed ALT (SGPT) (BEAKER) (test 225 U/L 6-55 Specimen slightly xrxg=321) hemolyzed EGFR (BEAKER) (test 65 mL/min/1.73 sq m ESTIMATED GFR IS NOT msjy=5889) ACCURATE CREATININE CLEARANCE IN PREDICTING GLOMERULAR FILTRATION RATE. ESTIMATED GFR IS NOT APPLICABLE FOR DIALYSIS PATIENTS. Specimen slightly ictericPROTHROMBIN [id number] 18:53:00 Test Item Value Reference Range Comments PROTIME (BEAKER) (test ksqr=229) 15.8 seconds 11.7-14.7 INR (BEAKER) (test fvmk=955) 1.3 <=5.9 RECOMMENDED COUMADIN/WARFARIN INR THERAPY RANGESSTANDARD DOSE: 2.0 - 3.0 Includes: PROPHYLAXIS forvenous thrombosis, systemic embolization; TREATMENT for venous thrombosis and/or pulmonary embolus.HIGH RISK: Target INR is 2.5-3.5 for patients with mechanical heart valves.CBC W/PLT COUNT & AUTO [id number] 18:49:00 Test Item Value Reference Range Comments WHITE BLOOD CELL COUNT (BEAKER) (test qnbc=915) 6.0 K/ L 3.5-10.5 RED BLOOD CELL COUNT (BEAKER) (test gneg=971) 3.44 M/ L 4.63-6.08 HEMOGLOBIN (BEAKER) (test sxvm=021) 11.6 GM/DL 13.7-17.5 HEMATOCRIT (BEAKER) (test maxs=633) 34.1 % 40.1-51.0 MEAN CORPUSCULAR VOLUME (BEAKER) (test khdu=122) 99.1 fL 79.0-92.2 MEAN CORPUSCULAR HEMOGLOBIN (BEAKER) (test 33.7 pg 25.7-32.2 apim=460) MEAN CORPUSCULAR HEMOGLOBIN CONC (BEAKER) (test 34.0 GM/DL 32.3-36.5 bcpl=234) RED CELL DISTRIBUTION WIDTH (BEAKER) (test 13.1 % 11.6-14.4 uiyb=012) PLATELET COUNT (BEAKER) (test ulxu=101) 109 K/CU MM 150-450 MEAN PLATELET VOLUME (BEAKER) (test ibrf=894) 11.0 fL 9.4-12.4 NUCLEATED RED BLOOD CELLS (BEAKER) (test 0 /100 WBC 0-0 kfdb=144) NEUTROPHILS RELATIVE PERCENT (BEAKER) (test 81 % lulb=955) LYMPHOCYTES RELATIVE PERCENT (BEAKER) (test 12 % zzjm=859) MONOCYTES RELATIVE PERCENT (BEAKER) (test 7 % pode=530) EOSINOPHILS RELATIVE PERCENT (BEAKER) (test 0 % aqeh=221) BASOPHILS RELATIVE PERCENT (BEAKER) (test 0 % ileu=250) NEUTROPHILS ABSOLUTE COUNT (BEAKER) (test 4.84 K/ L 1.78-5.38 htmw=706) LYMPHOCYTES ABSOLUTE COUNT (BEAKER) (test 0.72 K/ L 1.32-3.57 lwpo=500) MONOCYTES ABSOLUTE COUNT (BEAKER) (test 0.41 K/ L 0.30-0.82 avoo=176) EOSINOPHILS ABSOLUTE COUNT (BEAKER) (test 0.01 K/ L 0.04-0.54 osjy=459) BASOPHILS ABSOLUTE COUNT (BEAKER) (test 0.02 K/ L 0.01-0.08 rvun=158) IMMATURE GRANULOCYTES-RELATIVE PERCENT (BEAKER) 0 % 0-1 (test olmg=9089) BLOOD [id number] 20:01:00 Test Item Value Reference Range Comments CULTURE (BEAKER) (test jygq=0229) No growth in 5 days BLOOD [id number] 20:01:00 Test Item Value Reference Range Comments CULTURE (BEAKER) (test zidg=5900) No growth in 5 days RAD, CHEST, 1 VIEW, NON [id number] 13:13:00Reason for exam:->evalute for pneumoniaShould this be performed at the bedside?->YesAddendum BeginsREPORT STATUS:A Addendum:Clinical diagnosis alcohol withdrawalsyndrome, electrolyte disturbances, elevated liver function tests, pneumonia, Signed: DellMarilu MDReport Verified Date/Time: 11/01/2018 13:13: 23 Reading Location: [address] Consult Reading RoomAddendum EndsFINAL REPORT Chest [...] MDReport Verified Date/Time: 10/28 15:36:38 Reading Location: [address] Consult Reading Room U/S, ABDOMINAL, WITH [id number] 10:43:00Reason for exam:->evaluate for portal hypertension, cirrhosis, [...] Sharpeeport Verified Date/Time: 10/31/2018 10:43:58 Reading Location: [address] Ultrasound Reading Room COMPREHENSIVE METABOLIC [id number] 06:57:00 Test Item Value Reference Range Comments TOTAL PROTEIN (BEAKER) 6.3 gm/dL 6.0-8.3 (test kvbj=399) ALBUMIN (BEAKER) (test 3.4 g/dL 3.5-5.0 klkt=4786) ALKALINE PHOSPHATASE 165 U/L 40-150 (BEAKER) (test wjms=807) BILIRUBIN TOTAL (BEAKER) 0.6 mg/dL 0.2-1.2 (test uxpk=357) SODIUM (BEAKER) (test 140 meq/L 136-145 nqch=155) POTASSIUM (BEAKER) (test 3.6 meq/L 3.5-5.1 lxec=295) CHLORIDE (BEAKER) (test 102 meq/L 98-107 hcfq=776) CO2 (BEAKER) (test 29 meq/L 22-29 wfke=525) BLOOD UREA NITROGEN 3 mg/dL 7-21 (BEAKER) (test opjx=852) CREATININE (BEAKER) (test 0.55 mg/dL 0.57-1.25 kkzt=692) GLUCOSE RANDOM (BEAKER) 89 mg/dL 70-105 (test aqum=323) CALCIUM (BEAKER) (test 9.2 mg/dL 8.4-10.2 lazj=282) AST (SGOT) (BEAKER) (test 184 U/L 5-34 yuok=116) ALT (SGPT) (BEAKER) (test 156 U/L 6-55 tkyl=744) EGFR (BEAKER) (test 173 mL/min/1.73 sq ESTIMATED GFR IS NOT xpgl=4685) m ACCURATE CREATININE CLEARANCE IN PREDICTING GLOMERULAR FILTRATION RATE. ESTIMATED GFR IS NOT APPLICABLE FOR DIALYSIS PATIENTS. HEMOGLOBIN [id number] 09:30:00 Test Item Value Reference Range Comments HEMOGLOBIN A1C (BEAKER) (test jnwv=910) 4.9 % 4.3-6.1 COMPREHENSIVE METABOLIC [id number] 05:17:00 Test Item Value Reference Range Comments TOTAL PROTEIN (BEAKER) 6.5 gm/dL 6.0-8.3 (test clwq=095) ALBUMIN (BEAKER) (test 3.6 g/dL 3.5-5.0 baid=6164) ALKALINE PHOSPHATASE 170 U/L 40-150 (BEAKER) (test qyby=294) BILIRUBIN TOTAL (BEAKER) 0.9 mg/dL 0.2-1.2 (test smws=611) SODIUM (BEAKER) (test 141 meq/L 136-145 tzoh=950) POTASSIUM (BEAKER) (test 3.5 meq/L 3.5-5.1 yymy=580) CHLORIDE (BEAKER) (test 104 meq/L 98-107 guak=591) CO2 (BEAKER) (test 26 meq/L 22-29 ewee=811) BLOOD UREA NITROGEN 4 mg/dL 7-21 (BEAKER) (test tdjn=234) CREATININE (BEAKER) (test 0.55 mg/dL 0.57-1.25 psdt=283) GLUCOSE RANDOM (BEAKER) 89 mg/dL 70-105 (test hprz=100) CALCIUM (BEAKER) (test 9.3 mg/dL 8.4-10.2 aeuf=540) AST (SGOT) (BEAKER) (test 167 U/L 5-34 mjkn=141) ALT (SGPT) (BEAKER) (test 156 U/L 6-55 awcf=984) EGFR (BEAKER) (test 173 mL/min/1.73 sq ESTIMATED GFR IS NOT oygy=3491) m ACCURATE CREATININE CLEARANCE IN PREDICTING GLOMERULAR FILTRATION RATE. ESTIMATED GFR IS NOT APPLICABLE FOR DIALYSIS PATIENTS. CBC W/PLT COUNT & AUTO [id number] 04:53:00 Test Item Value Reference Range Comments WHITE BLOOD CELL COUNT (BEAKER) (test xiqg=753) 3.4 K/ L 3.5-10.5 RED BLOOD CELL COUNT (BEAKER) (test yqmy=298) 3.45 M/ L 4.63-6.08 HEMOGLOBIN (BEAKER) (test bwsy=740) 11.8 GM/DL 13.7-17.5 HEMATOCRIT (BEAKER) (test mdmp=700) 34.4 % 40.1-51.0 MEAN CORPUSCULAR VOLUME (BEAKER) (test ueqw=421) 99.7 fL 79.0-92.2 MEAN CORPUSCULAR HEMOGLOBIN (BEAKER) (test 34.2 pg 25.7-32.2 ddfw=416) MEAN CORPUSCULAR HEMOGLOBIN CONC (BEAKER) (test 34.3 GM/DL 32.3-36.5 mith=629) RED CELL DISTRIBUTION WIDTH (BEAKER) (test 12.2 % 11.6-14.4 nmxs=806) PLATELET COUNT (BEAKER) (test rntp=260) 175 K/CU MM 150-450 MEAN PLATELET VOLUME (BEAKER) (test jvgd=596) 10.3 fL 9.4-12.4 NUCLEATED RED BLOOD CELLS (BEAKER) (test 0 /100 WBC 0-0 xctd=909) NEUTROPHILS RELATIVE PERCENT (BEAKER) (test 55 % xbpp=815) LYMPHOCYTES RELATIVE PERCENT (BEAKER) (test 30 % fhvs=041) MONOCYTES RELATIVE PERCENT (BEAKER) (test 11 % idok=194) EOSINOPHILS RELATIVE PERCENT (BEAKER) (test 3 % mvty=013) BASOPHILS RELATIVE PERCENT (BEAKER) (test 1 % quel=378) NEUTROPHILS ABSOLUTE COUNT (BEAKER) (test 1.89 K/ L 1.78-5.38 frxj=323) LYMPHOCYTES ABSOLUTE COUNT (BEAKER) (test 1.03 K/ L 1.32-3.57 rfbt=542) MONOCYTES ABSOLUTE COUNT (BEAKER) (test 0.39 K/ L 0.30-0.82 faao=242) EOSINOPHILS ABSOLUTE COUNT (BEAKER) (test 0.09 K/ L 0.04-0.54 ykdy=415) BASOPHILS ABSOLUTE COUNT (BEAKER) (test 0.03 K/ L 0.01-0.08 xcyv=983) IMMATURE GRANULOCYTES-RELATIVE PERCENT (BEAKER) 0 % 0-1 (test surc=0656) LIPID [id number] 17:30:00 Test Item Value Reference Range Comments TRIGLYCERIDES (BEAKER) (test owiy=019) 90 mg/dL CHOLESTEROL (BEAKER) (test ushq=436) 140 mg/dL HDL CHOLESTEROL (BEAKER) (test ehnk=628) 37 mg/dL LDL CHOLESTEROL CALCULATED (BEAKER) (test 85 mg/dL jyzw=992) Triglyceride Reference Range: Low Risk <150 Borderline 150- 199 High Risk 200-499 Very High Risk >=500Cholesterol Reference Range: Low Risk <200 Borderline 200-239 High Risk > 240HDL Cholesterol Reference Range: Low Risk >=60 High Risk <40LDL Cholesterol Reference Range: Optimal <100 Near Optimal 100-129 Borderline 130-159 High 160-189 Very High >=190HEPATITIS C PCR, [id number] 14:57:00 Test Item Value Reference Range Comments HCV RESULT COMPONENT (BEAKER) HCV RNA not detected HCV RNA not detected (test apbn=1545) This test uses a Real-Time Polymerase Chain Reaction (RT-PCR) methodology and was performed using MARIAN[employer] Ampliprep/MARIANO TaqMan HCV test kit version 2.0 ( [employer]).Reportable range for this assay is 15 - 100,000, 000 IU per mL (1.18 - 8.00 Log IU/mL).RAD, ABDOMEN/KUB, 1 VIEW [id number] 14: 17:00Reason for exam:->abd distensionFINAL REPORT TECHNIQUE: Supine radiographs of the abdomen dated 10/29/2018. HISTORY: Abdominal distention. COMPARISON: None IMPRESSION:No air-filled, dilated loops of bowel to suggest obstruction. No free intraperitoneal air. No abnormal soft tissue mass or calcification. Signed:Nancy Concepcion MDReport Verified Date/ Time: 10/29/2018 14:17:17 Reading Location: [facility] Radiology Reading Room [id number] 13:28:00 Test Item Value Reference Range Comments RPR SCREEN (BEAKER) (test ghhu=570) Nonreactive Nonreactive [id number] 05:12:00 Test Item Value Reference Range Comments PHOSPHORUS (BEAKER) (test lszr=509) 2.5 mg/dL 2.3-4.7 COMPREHENSIVE METABOLIC [id number] 05:12:00 Test Item Value Reference Range Comments TOTAL PROTEIN (BEAKER) 6.9 gm/dL 6.0-8.3 (test gasg=035) ALBUMIN (BEAKER) (test 3.9 g/dL 3.5-5.0 rsbz=4112) ALKALINE PHOSPHATASE 200 U/L 40-150 (BEAKER) (test sizm=701) BILIRUBIN TOTAL (BEAKER) 1.2 mg/dL 0.2-1.2 (test gdyp=182) SODIUM (BEAKER) (test 137 meq/L 136-145 msid=785) POTASSIUM (BEAKER) (test 3.3 meq/L 3.5-5.1 twww=110) CHLORIDE (BEAKER) (test 97 meq/L 98-107 xeog=726) CO2 (BEAKER) (test 27 meq/L 22-29 eqjl=497) BLOOD UREA NITROGEN 3 mg/dL 7-21 (BEAKER) (test hgmi=102) CREATININE (BEAKER) (test 0.57 mg/dL 0.57-1.25 uziz=825) GLUCOSE RANDOM (BEAKER) 108 mg/dL 70-105 (test pllv=792) CALCIUM (BEAKER) (test 9.4 mg/dL 8.4-10.2 ugdw=478) AST (SGOT) (BEAKER) (test 263 U/L 5-34 cnbb=422) ALT (SGPT) (BEAKER) (test 215 U/L 6-55 ixpn=548) EGFR (BEAKER) (test 166 mL/min/1.73 sq ESTIMATED GFR IS NOT rtex=1830) m ACCURATE CREATININE CLEARANCE IN PREDICTING GLOMERULAR FILTRATION RATE. ESTIMATED GFR IS NOT APPLICABLE FOR DIALYSIS PATIENTS. PROTHROMBIN [id number] 04:53:00 Test Item Value Reference Range Comments PROTIME (BEAKER) (test tykb=409) 16.0 seconds 11.7-14.7 INR (BEAKER) (test kmmk=803) 1.3 <=5.9 RECOMMENDED COUMADIN/WARFARIN INR THERAPY RANGESSTANDARD DOSE: 2.0 - 3.0 Includes: PROPHYLAXIS forvenous thrombosis, systemic embolization; TREATMENT for venous thrombosis and/or pulmonary embolus.HIGH RISK: Target INR is 2.5-3.5 for patients with mechanical heart valves.URINALYSIS W/ REFLEX URINE [id number] 18:43:00 Test Item Value Reference Range Comments COLOR (BEAKER) (test rybe=724) Yellow CLARITY (BEAKER) (test rxoi=314) Clear SPECIFIC GRAVITY UA (BEAKER) (test djuw=850) 1.007 1.001-1.035 PH UA (BEAKER) (test yizc=700) 7.5 5.0-8.0 PROTEIN UA (BEAKER) (test egzk=658) 20 mg/dL Negative GLUCOSE UA (BEAKER) (test ijov=932) Negative Negative KETONES UA (BEAKER) (test mybt=088) 20 mg/dL Negative BILIRUBIN UA (BEAKER) (test auyc=072) Negative Negative BLOOD UA (BEAKER) (test tglt=491) Trace Negative NITRITE UA (BEAKER) (test wdtl=550) Negative Negative LEUKOCYTE ESTERASE UA (BEAKER) (test pxbh=636) Negative Negative UROBILINOGEN UA (BEAKER) (test bixa=500) 2.0 mg/dL 0.2-1.0 RBC UA (BEAKER) (test dtks=283) 3 /HPF WBC UA (BEAKER) (test hppf=016) < /HPF MUCUS (BEAKER) (test smux=9011) Rare SOURCE(BEAKER) (test euwy=8354) VITAMIN B12 AND [id number] 15:08:00 Test Item Value Reference Range Comments VITAMIN B12 (BEAKER) (test vedi=048) 1678 pg/mL 213-816 FOLATE (BEAKER) (test xnqi=605) 19.4 ng/mL >=7.0 [id number] 14:48:00 Test Item Value Reference Range Comments FERRITIN (BEAKER) (test liwp=335) 1698 ng/mL 5-275 IRON, TIBC, % SAT. (WITHOUT FERRITIN)[id number] 13:26:00 Test Item Value Reference Range Comments IRON (BEAKER) (test shlh=808) 44.0 ug/dL 40.0-160.0 TOTAL IRON BINDING CAPACITY (BEAKER) (test 186 ug/dL 250-450 htbc=013) IRON % SATURATION (2) (BEAKER) (test lwhy=9746) 24 % 20-55 HEPATITIS B SURFACE [id number] 13:26:00 Test Item Value Reference Range Comments HEPATITIS B SURFACE ANTIGEN (2) (BEAKER) (test Nonreactive Nonreactive byiv=9554) HEPATITIS C [id number] 13:26:00 Test Item Value Reference Range Comments HEPATITIS C ANTIBODY (BEAKER) (test qwea=035) Nonreactive Nonreactive HIV-1 ANTIGEN WITH HIV-1/2 [id number] 13:26:00 Test Item Value Reference Range Comments HIV-1 ANTIGEN WITH HIV 1\T\2 ANTIBODY (2) Nonreactive Nonreactive (BEAKER) (test rkwq=0227) HEPATITIS B SURFACE [id number] 13:19:00 Test Item Value Reference Range Comments HEPATITIS B SURFACE ANTIBODY (BEAKER) (test 34.5 mIU/mL <8.0 pspz=511) HEPATITIS A ANTIBODY, [id number] 13:19:00 Test Item Value Reference Range Comments HEPATITIS A IGM ANTIBODY (BEAKER) (test Nonreactive Nonreactive fvrm=115) HEPATITIS B CORE ANTIBODY, [id number] 13:19:00 Test Item Value Reference Range Comments HEPATITIS B CORE TOTAL ANTIBODY (BEAKER) (test Nonreactive Nonreactive cpxo=724) HEPATITIS A ANTIBODY, [id number] 13:19:00 Test Item Value Reference Range Comments HEPATITIS A IGG ANTIBODY (BEAKER) (test Nonreactive Nonreactive rgot=4945) PROTHROMBIN [id number] 13:00:00 Test Item Value Reference Range Comments PROTIME (BEAKER) (test eexb=780) 15.5 seconds 11.7-14.7 INR (BEAKER) (test ehcs=343) 1.2 <=5.9 RECOMMENDED COUMADIN/WARFARIN INR THERAPY RANGESSTANDARD DOSE: 2.0 - 3.0 Includes: PROPHYLAXIS forvenous thrombosis, systemic embolization; TREATMENT for venous thrombosis and/or pulmonary embolus.HIGH RISK: Target INR is 2.5-3.5 for patients with mechanical heart valves.[id number] 03:31:00 Test Item Value Reference Range Comments PHOSPHORUS (BEAKER) (test idhz=964) 3.5 mg/dL 2.3-4.7 [id number] 03:31:00 Test Item Value Reference Range Comments MAGNESIUM (BEAKER) (test drhu=059) 1.5 mg/dL 1.6-2.6 COMPREHENSIVE METABOLIC [id number] 03:31:00 Test Item Value Reference Range Comments TOTAL PROTEIN (BEAKER) 6.5 gm/dL 6.0-8.3 (test lddh=741) ALBUMIN (BEAKER) (test 3.7 g/dL 3.5-5.0 obvy=5122) ALKALINE PHOSPHATASE 200 U/L 40-150 (BEAKER) (test zprx=580) BILIRUBIN TOTAL (BEAKER) 0.8 mg/dL 0.2-1.2 (test gpba=263) SODIUM (BEAKER) (test 142 meq/L 136-145 xxev=568) POTASSIUM (BEAKER) (test 3.1 meq/L 3.5-5.1 mrwd=962) CHLORIDE (BEAKER) (test 103 meq/L 98-107 fnop=465) CO2 (BEAKER) (test 24 meq/L 22-29 ezcp=843) BLOOD UREA NITROGEN 4 mg/dL 7-21 (BEAKER) (test mhge=100) CREATININE (BEAKER) (test 0.55 mg/dL 0.57-1.25 howk=440) GLUCOSE RANDOM (BEAKER) 100 mg/dL 70-105 (test bwlx=982) CALCIUM (BEAKER) (test 8.5 mg/dL 8.4-10.2 zvyx=289) AST (SGOT) (BEAKER) (test 318 U/L 5-34 fsof=400) ALT (SGPT) (BEAKER) (test 244 U/L 6-55 zabh=961) EGFR (BEAKER) (test 173 mL/min/1.73 sq ESTIMATED GFR IS NOT gphn=6217) m ACCURATE CREATININE CLEARANCE IN PREDICTING GLOMERULAR FILTRATION RATE. ESTIMATED GFR IS NOT APPLICABLE FOR DIALYSIS PATIENTS. CBC W/PLT COUNT & AUTO [id number] 03:03:00 Test Item Value Reference Range Comments WHITE BLOOD CELL COUNT (BEAKER) (test afrq=351) 4.2 K/ L 3.5-10.5 RED BLOOD CELL COUNT (BEAKER) (test wrcd=573) 3.61 M/ L 4.63-6.08 HEMOGLOBIN (BEAKER) (test gslg=459) 12.3 GM/DL 13.7-17.5 HEMATOCRIT (BEAKER) (test dubi=838) 35.9 % 40.1-51.0 MEAN CORPUSCULAR VOLUME (BEAKER) (test omei=495) 99.4 fL 79.0-92.2 MEAN CORPUSCULAR HEMOGLOBIN (BEAKER) (test 34.1 pg 25.7-32.2 yhkd=762) MEAN CORPUSCULAR HEMOGLOBIN CONC (BEAKER) (test 34.3 GM/DL 32.3-36.5 fcha=108) RED CELL DISTRIBUTION WIDTH (BEAKER) (test 12.3 % 11.6-14.4 wmai=979) PLATELET COUNT (BEAKER) (test esto=358) 122 K/CU MM 150-450 MEAN PLATELET VOLUME (BEAKER) (test ovpd=887) 9.8 fL 9.4-12.4 NUCLEATED RED BLOOD CELLS (BEAKER) (test 0 /100 WBC 0-0 fpui=629) NEUTROPHILS RELATIVE PERCENT (BEAKER) (test 70 % uuot=799) LYMPHOCYTES RELATIVE PERCENT (BEAKER) (test 17 % tjlp=397) MONOCYTES RELATIVE PERCENT (BEAKER) (test 11 % yvwx=036) EOSINOPHILS RELATIVE PERCENT (BEAKER) (test 1 % fnru=300) BASOPHILS RELATIVE PERCENT (BEAKER) (test 1 % kqiu=732) NEUTROPHILS ABSOLUTE COUNT (BEAKER) (test 2.94 K/ L 1.78-5.38 gwln=190) LYMPHOCYTES ABSOLUTE COUNT (BEAKER) (test 0.73 K/ L 1.32-3.57 tbha=265) MONOCYTES ABSOLUTE COUNT (BEAKER) (test 0.45 K/ L 0.30-0.82 tfmi=725) EOSINOPHILS ABSOLUTE COUNT (BEAKER) (test 0.04 K/ L 0.04-0.54 kevp=447) BASOPHILS ABSOLUTE COUNT (BEAKER) (test 0.02 K/ L 0.01-0.08 jefz=162) IMMATURE GRANULOCYTES-RELATIVE PERCENT (BEAKER) 1 % 0-1 (test tczn=7898) POCT-GLUCOSE [id number] 12:15:00 Test Item Value Reference Range Comments POC-GLUCOSE METER (BEAKER) 99 mg/dL 70-[address] [facility] [address] [facility] (test dzcf=5137) [facility] [address] [id number] 06:15:00 Test Item Value Reference Range Comments MAGNESIUM (BEAKER) (test jfju=004) 1.8 mg/dL 1.6-2.6 COMPREHENSIVE METABOLIC [id number] 06:15:00 Test Item Value Reference Range Comments TOTAL PROTEIN (BEAKER) 6.6 gm/dL 6.0-8.3 (test wrgz=431) ALBUMIN (BEAKER) (test 3.6 g/dL 3.5-5.0 kyhz=3906) ALKALINE PHOSPHATASE 149 U/L 40-150 (BEAKER) (test ffjy=306) BILIRUBIN TOTAL (BEAKER) 0.8 mg/dL 0.2-1.2 (test yslm=415) SODIUM (BEAKER) (test 135 meq/L 136-145 tmah=773) POTASSIUM (BEAKER) (test 3.6 meq/L 3.5-5.1 tfpn=089) CHLORIDE (BEAKER) (test 98 meq/L 98-107 edlo=469) CO2 (BEAKER) (test 26 meq/L 22-29 snfp=758) BLOOD UREA NITROGEN 8 mg/dL 7-21 (BEAKER) (test yrtt=123) CREATININE (BEAKER) (test 0.57 mg/dL 0.57-1.25 spwa=021) GLUCOSE RANDOM (BEAKER) 100 mg/dL 70-105 (test kqif=373) CALCIUM (BEAKER) (test 9.5 mg/dL 8.4-10.2 beud=093) AST (SGOT) (BEAKER) (test 155 U/L 5-34 xpem=714) ALT (SGPT) (BEAKER) (test 151 U/L 6-55 plog=808) EGFR (BEAKER) (test 166 mL/min/1.73 sq ESTIMATED GFR IS NOT ownt=3676) m ACCURATE CREATININE CLEARANCE IN PREDICTING GLOMERULAR FILTRATION RATE. ESTIMATED GFR IS NOT APPLICABLE FOR DIALYSIS PATIENTS. CBC W/PLT COUNT & AUTO [id number] 05:30:00 Test Item Value Reference Range Comments WHITE BLOOD CELL COUNT (BEAKER) (test eotf=253) 5.1 K/ L 3.5-10.5 RED BLOOD CELL COUNT (BEAKER) (test sjqd=373) 3.81 M/ L 4.63-6.08 HEMOGLOBIN (BEAKER) (test linh=288) 13.1 GM/DL 13.7-17.5 HEMATOCRIT (BEAKER) (test mzwv=133) 37.6 % 40.1-51.0 MEAN CORPUSCULAR VOLUME (BEAKER) (test eyif=222) 98.7 fL 79.0-92.2 MEAN CORPUSCULAR HEMOGLOBIN (BEAKER) (test 34.4 pg 25.7-32.2 zyny=141) MEAN CORPUSCULAR HEMOGLOBIN CONC (BEAKER) (test 34.8 GM/DL 32.3-36.5 eezp=248) RED CELL DISTRIBUTION WIDTH (BEAKER) (test 11.5 % 11.6-14.4 plbv=268) PLATELET COUNT (BEAKER) (test tywu=864) 152 K/CU MM 150-450 MEAN PLATELET VOLUME (BEAKER) (test lgkz=091) 10.2 fL 9.4-12.4 NUCLEATED RED BLOOD CELLS (BEAKER) (test 0 /100 WBC 0-0 hdok=175) NEUTROPHILS RELATIVE PERCENT (BEAKER) (test 71 % rcfx=810) LYMPHOCYTES RELATIVE PERCENT (BEAKER) (test 14 % zlrr=872) MONOCYTES RELATIVE PERCENT (BEAKER) (test 11 % yywm=894) EOSINOPHILS RELATIVE PERCENT (BEAKER) (test 2 % munp=704) BASOPHILS RELATIVE PERCENT (BEAKER) (test 1 % ccux=789) NEUTROPHILS ABSOLUTE COUNT (BEAKER) (test 3.66 K/ L 1.78-5.38 qhpn=685) LYMPHOCYTES ABSOLUTE COUNT (BEAKER) (test 0.71 K/ L 1.32-3.57 iclh=063) MONOCYTES ABSOLUTE COUNT (BEAKER) (test 0.58 K/ L 0.30-0.82 fxfo=260) EOSINOPHILS ABSOLUTE COUNT (BEAKER) (test 0.10 K/ L 0.04-0.54 sczb=803) BASOPHILS ABSOLUTE COUNT (BEAKER) (test 0.04 K/ L 0.01-0.08 deoh=322) IMMATURE GRANULOCYTES-RELATIVE PERCENT (BEAKER) 1 % 0-1 (test flxo=4399) POCT-GLUCOSE [id number] 11:54:00 Test Item Value Reference Range Comments POC-GLUCOSE METER (BEAKER) 83 mg/dL 70-[address] [facility] [address] [facility] (test echt=5816) [facility] [address] [id number] 05:54:00 Test Item Value Reference Range Comments PHOSPHORUS (BEAKER) (test nkrk=839) 2.3 mg/dL 2.3-4.7 [id number] 05:54:00 Test Item Value Reference Range Comments MAGNESIUM (BEAKER) (test cubc=742) 2.0 mg/dL 1.6-2.6 COMPREHENSIVE METABOLIC [id number] 05:54:00 Test Item Value Reference Range Comments TOTAL PROTEIN (BEAKER) 6.0 gm/dL 6.0-8.3 (test lbjv=060) ALBUMIN (BEAKER) (test 3.2 g/dL 3.5-5.0 edjb=3944) ALKALINE PHOSPHATASE 134 U/L 40-150 (BEAKER) (test xkia=138) BILIRUBIN TOTAL (BEAKER) 1.1 mg/dL 0.2-1.2 (test tgam=402) SODIUM (BEAKER) (test 134 meq/L 136-145 rnjt=427) POTASSIUM (BEAKER) (test 3.6 meq/L 3.5-5.1 ymgn=992) CHLORIDE (BEAKER) (test 100 meq/L 98-107 deeo=965) CO2 (BEAKER) (test 26 meq/L 22-29 tizi=175) BLOOD UREA NITROGEN 4 mg/dL 7-21 (BEAKER) (test zxwn=923) CREATININE (BEAKER) (test 0.54 mg/dL 0.57-1.25 bsqd=885) GLUCOSE RANDOM (BEAKER) 141 mg/dL 70-105 (test ecfc=377) CALCIUM (BEAKER) (test 8.8 mg/dL 8.4-10.2 rvvi=103) AST (SGOT) (BEAKER) (test 183 U/L 5-34 yutm=806) ALT (SGPT) (BEAKER) (test 149 U/L 6-55 kola=500) EGFR (BEAKER) (test 176 mL/min/1.73 sq ESTIMATED GFR IS NOT hwvz=6363) m ACCURATE CREATININE CLEARANCE IN PREDICTING GLOMERULAR FILTRATION RATE. ESTIMATED GFR IS NOT APPLICABLE FOR DIALYSIS PATIENTS. LACTIC ACID, [id number] 05:35:00 Test Item Value Reference Range Comments LACTATE BLOOD VENOUS (2) (BEAKER) (test 1.0 mmol/L 0.5-2.2 drch=1991) CBC W/PLT COUNT & AUTO [id number] 05:23:00 Test Item Value Reference Range Comments WHITE BLOOD CELL COUNT (BEAKER) (test antu=343) 5.0 K/ L 3.5-10.5 RED BLOOD CELL COUNT (BEAKER) (test gqcd=850) 3.88 M/ L 4.63-6.08 HEMOGLOBIN (BEAKER) (test lcbi=634) 13.0 GM/DL 13.7-17.5 HEMATOCRIT (BEAKER) (test jjxx=107) 38.5 % 40.1-51.0 MEAN CORPUSCULAR VOLUME (BEAKER) (test qunv=222) 99.2 fL 79.0-92.2 MEAN CORPUSCULAR HEMOGLOBIN (BEAKER) (test 33.5 pg 25.7-32.2 axpk=804) MEAN CORPUSCULAR HEMOGLOBIN CONC (BEAKER) (test 33.8 GM/DL 32.3-36.5 qxhs=802) RED CELL DISTRIBUTION WIDTH (BEAKER) (test 11.6 % 11.6-14.4 qgwj=197) PLATELET COUNT (BEAKER) (test hvxx=630) 113 K/CU MM 150-450 MEAN PLATELET VOLUME (BEAKER) (test giim=939) 10.7 fL 9.4-12.4 NUCLEATED RED BLOOD CELLS (BEAKER) (test 0 /100 WBC 0-0 kard=245) NEUTROPHILS RELATIVE PERCENT (BEAKER) (test 72 % kdfr=079) LYMPHOCYTES RELATIVE PERCENT (BEAKER) (test 15 % jpsy=438) MONOCYTES RELATIVE PERCENT (BEAKER) (test 10 % auwc=556) EOSINOPHILS RELATIVE PERCENT (BEAKER) (test 2 % ogqv=838) BASOPHILS RELATIVE PERCENT (BEAKER) (test 1 % cizo=375) NEUTROPHILS ABSOLUTE COUNT (BEAKER) (test 3.56 K/ L 1.78-5.38 rkwh=168) LYMPHOCYTES ABSOLUTE COUNT (BEAKER) (test 0.76 K/ L 1.32-3.57 xnzm=968) MONOCYTES ABSOLUTE COUNT (BEAKER) (test 0.49 K/ L 0.30-0.82 rarv=722) EOSINOPHILS ABSOLUTE COUNT (BEAKER) (test 0.10 K/ L 0.04-0.54 fjff=194) BASOPHILS ABSOLUTE COUNT (BEAKER) (test 0.04 K/ L 0.01-0.08 qahm=721) IMMATURE GRANULOCYTES-RELATIVE PERCENT (BEAKER) 1 % 0-1 (test zayn=9967) POCT-GLUCOSE [id number] 18:44:00 Test Item Value Reference Range Comments POC-GLUCOSE METER (BEAKER) 100 mg/dL 70-110 TESTED AT [address] (test gjue=9805) [facility] [address] [id number] 17:58:00 Test Item Value Reference Range Comments PHOSPHORUS (BEAKER) (test klhb=823) 2.3 mg/dL 2.3-4.7 [id number] 17:58:00 Test Item Value Reference Range Comments MAGNESIUM (BEAKER) (test uqkn=204) 1.8 mg/dL 1.6-2.6 BASIC METABOLIC [id number] 17:58:00 Test Item Value Reference Range Comments SODIUM (BEAKER) (test 137 meq/L 136-145 gzld=629) POTASSIUM (BEAKER) (test 3.6 meq/L 3.5-5.1 muez=662) CHLORIDE (BEAKER) (test 102 meq/L 98-107 lecl=375) CO2 (BEAKER) (test 26 meq/L 22-29 iafu=126) BLOOD UREA NITROGEN 4 mg/dL 7-21 (BEAKER) (test augw=134) CREATININE (BEAKER) (test 0.54 mg/dL 0.57-1.25 gacp=604) GLUCOSE RANDOM (BEAKER) 123 mg/dL 70-105 (test emwh=068) CALCIUM (BEAKER) (test 8.7 mg/dL 8.4-10.2 dxbh=661) EGFR (BEAKER) (test 177 mL/min/1.73 sq m ESTIMATED GFR IS NOT zqfc=7839) ACCURATE CREATININE CLEARANCE IN PREDICTING GLOMERULAR FILTRATION RATE. ESTIMATED GFR IS NOT APPLICABLE FOR DIALYSIS PATIENTS. [id number] 16:55:00 Test Item Value Reference Range Comments MAGNESIUM (BEAKER) (test 1.6 mg/dL 1.6-2.6 Specimen slightly hemolyzed fytg=434) [id number] 16:55:00 Test Item Value Reference Range Comments PHOSPHORUS (BEAKER) (test 2.3 mg/dL 2.3-4.7 Specimen slightly hemolyzed gsbd=787) BASIC METABOLIC [id number] 16:55:00 Test Item Value Reference Range Comments SODIUM (BEAKER) (test 138 meq/L 136-145 euvx=017) POTASSIUM (BEAKER) (test 3.7 meq/L 3.5-5.1 Specimen slightly uype=097) hemolyzed CHLORIDE (BEAKER) (test 105 meq/L 98-107 fzul=600) CO2 (BEAKER) (test 23 meq/L 22-29 azfe=962) BLOOD UREA NITROGEN 4 mg/dL 7-21 (BEAKER) (test npge=844) CREATININE (BEAKER) (test 0.51 mg/dL 0.57-1.25 Specimen slightly retx=714) hemolyzed GLUCOSE RANDOM (BEAKER) 99 mg/dL 70-105 (test bxha=744) CALCIUM (BEAKER) (test 8.0 mg/dL 8.4-10.2 sret=134) EGFR (BEAKER) (test 190 mL/min/1.73 sq m ESTIMATED GFR IS NOT nelp=5985) ACCURATE CREATININE CLEARANCE IN PREDICTING GLOMERULAR FILTRATION RATE. ESTIMATED GFR IS NOT APPLICABLE FOR DIALYSIS PATIENTS. POCT-GLUCOSE [id number] 12:41:00 Test Item Value Reference Range Comments POC-GLUCOSE METER (BEAKER) 100 mg/dL 70-110 TESTED AT [address] (test ssvr=4789) [facility] [address] POCT-GLUCOSE [id number] 08:07:00 Test Item Value Reference Range Comments POC-GLUCOSE METER (BEAKER) 99 mg/dL 70-110 TESTED AT [address] (test wxhr=6890) [facility] [id number] U/S, ABDOMINAL, [id number] 08:05:00Abdomen limited area? Add comment if clarification [...] Verified Date /Time: 09/30/2018 08:05:48 Reading Location: [address] Ultrasound Reading Room [id number] 07:23:00 Test Item Value Reference Range Comments PHOSPHORUS (BEAKER) (test dizm=439) 1.2 mg/dL 2.3-4.7 [id number] 07:11:00 Test Item Value Reference Range Comments MAGNESIUM (BEAKER) (test nsja=406) 2.3 mg/dL 1.6-2.6 COMPREHENSIVE METABOLIC [id number] 07:11:00 Test Item Value Reference Range Comments TOTAL PROTEIN (BEAKER) 5.8 gm/dL 6.0-8.3 (test hate=656) ALBUMIN (BEAKER) (test 3.1 g/dL 3.5-5.0 uqjc=4037) ALKALINE PHOSPHATASE 141 U/L 40-150 (BEAKER) (test ekrj=542) BILIRUBIN TOTAL (BEAKER) 1.1 mg/dL 0.2-1.2 (test ynsp=854) SODIUM (BEAKER) (test 135 meq/L 136-145 kznx=497) POTASSIUM (BEAKER) (test 3.7 meq/L 3.5-5.1 bdar=413) CHLORIDE (BEAKER) (test 104 meq/L 98-107 biiu=198) CO2 (BEAKER) (test 24 meq/L 22-29 mitk=923) BLOOD UREA NITROGEN 5 mg/dL 7-21 (BEAKER) (test womi=516) CREATININE (BEAKER) (test 0.39 mg/dL 0.57-1.25 oqmy=558) GLUCOSE RANDOM (BEAKER) 114 mg/dL 70-105 (test lkbv=450) CALCIUM (BEAKER) (test 8.3 mg/dL 8.4-10.2 doke=083) AST (SGOT) (BEAKER) (test 354 U/L 5-34 tnui=585) ALT (SGPT) (BEAKER) (test 188 U/L 6-55 kbwy=168) EGFR (BEAKER) (test 258 mL/min/1.73 sq ESTIMATED GFR IS NOT ehdc=8820) m ACCURATE CREATININE CLEARANCE IN PREDICTING GLOMERULAR FILTRATION RATE. ESTIMATED GFR IS NOT APPLICABLE FOR DIALYSIS PATIENTS. LACTIC ACID, [id number] 04:07:00 Test Item Value Reference Range Comments LACTATE BLOOD VENOUS (2) 0.8 mmol/L 0.5-2.2 Specimen slightly hemolyzed (BEAKER) (test etqm=7454) CBC W/PLT COUNT & AUTO [id number] 04:00:00 Test Item Value Reference Range Comments WHITE BLOOD CELL COUNT (BEAKER) (test irfx=142) 6.1 K/ L 3.5-10.5 RED BLOOD CELL COUNT (BEAKER) (test ukcs=086) 3.87 M/ L 4.63-6.08 HEMOGLOBIN (BEAKER) (test phnn=446) 13.3 GM/DL 13.7-17.5 HEMATOCRIT (BEAKER) (test dlod=287) 39.1 % 40.1-51.0 MEAN CORPUSCULAR VOLUME (BEAKER) (test smxr=321) 101.0 fL 79.0-92.2 MEAN CORPUSCULAR HEMOGLOBIN (BEAKER) (test 34.4 pg 25.7-32.2 zixk=306) MEAN CORPUSCULAR HEMOGLOBIN CONC (BEAKER) (test 34.0 GM/DL 32.3-36.5 skpw=534) RED CELL DISTRIBUTION WIDTH (BEAKER) (test 12.1 % 11.6-14.4 pjlf=858) PLATELET COUNT (BEAKER) (test aqbb=156) 105 K/CU MM 150-450 MEAN PLATELET VOLUME (BEAKER) (test qrff=449) 10.4 fL 9.4-12.4 NUCLEATED RED BLOOD CELLS (BEAKER) (test 0 /100 WBC 0-0 juct=755) NEUTROPHILS RELATIVE PERCENT (BEAKER) (test 74 % wvbq=979) LYMPHOCYTES RELATIVE PERCENT (BEAKER) (test 14 % qxuh=955) MONOCYTES RELATIVE PERCENT (BEAKER) (test 10 % ugje=310) EOSINOPHILS RELATIVE PERCENT (BEAKER) (test 1 % unew=846) BASOPHILS RELATIVE PERCENT (BEAKER) (test 1 % hsar=214) NEUTROPHILS ABSOLUTE COUNT (BEAKER) (test 4.52 K/ L 1.78-5.38 gmng=044) LYMPHOCYTES ABSOLUTE COUNT (BEAKER) (test 0.84 K/ L 1.32-3.57 wffb=690) MONOCYTES ABSOLUTE COUNT (BEAKER) (test 0.62 K/ L 0.30-0.82 hppb=677) EOSINOPHILS ABSOLUTE COUNT (BEAKER) (test 0.06 K/ L 0.04-0.54 gids=855) BASOPHILS ABSOLUTE COUNT (BEAKER) (test 0.03 K/ L 0.01-0.08 bqte=889) IMMATURE GRANULOCYTES-RELATIVE PERCENT (BEAKER) 0 % 0-1 (test uymh=2336) [id number] 01:32:00 Test Item Value Reference Range Comments PROCALCITONIN (BEAKER) (test xvqv=9067) 0.48 ng/mL <0.05 SEPSIS RISK (ng/mL)Low: 0.05-0.50Intermediate: 0.51-2.00High: & gt;=2.01BASIC METABOLIC [id number] 00:58:00 Test Item Value Reference Range Comments SODIUM (BEAKER) (test 135 meq/L 136-145 uhpb=303) POTASSIUM (BEAKER) (test 3.4 meq/L 3.5-5.1 shjc=957) CHLORIDE (BEAKER) (test 104 meq/L 98-107 totj=518) CO2 (BEAKER) (test 22 meq/L 22-29 bgfu=530) BLOOD UREA NITROGEN 7 mg/dL 7-21 (BEAKER) (test wdls=629) CREATININE (BEAKER) (test 0.55 mg/dL 0.57-1.25 mnop=992) GLUCOSE RANDOM (BEAKER) 113 mg/dL 70-105 (test dabt=675) CALCIUM (BEAKER) (test 8.4 mg/dL 8.4-10.2 mkli=597) EGFR (BEAKER) (test 174 mL/min/1.73 sq m ESTIMATED GFR IS NOT gxhb=9213) ACCURATE CREATININE CLEARANCE IN PREDICTING GLOMERULAR FILTRATION RATE. ESTIMATED GFR IS NOT APPLICABLE FOR DIALYSIS PATIENTS. [id number] 00:57:00 Test Item Value Reference Range Comments MAGNESIUM (BEAKER) (test jvlh=722) 1.5 mg/dL 1.6-2.6 LACTIC ACID, [id number] 00:37:00 Test Item Value Reference Range Comments LACTATE BLOOD VENOUS (2) 0.7 mmol/L 0.5-2.2 Specimen moderately hemolyzed (BEAKER) (test mqnc=7836) POCT-GLUCOSE [id number] 00:25:00 Test Item Value Reference Range Comments POC-GLUCOSE METER (BEAKER) 101 mg/dL 70-110 TESTED AT [address] (test qhze=3984) [facility] [address] POCT-GLUCOSE [id number] 18:32:00 Test Item Value Reference Range Comments POC-GLUCOSE METER (BEAKER) 76 mg/dL 70-110 TESTED AT [address] (test fffa=8320) [facility] [address] [id number] 15:15:00 Test Item Value Reference Range Comments POTASSIUM (BEAKER) (test ejbk=696) 3.4 meq/L 3.5-5.1 [id number] 15:15:00 Test Item Value Reference Range Comments MAGNESIUM (GALEN) (test xqdy=610) 2.1 mg/dL 1.6-2.6 CT, [id number] 12:38:00FINAL REPORT CT abdomen with and without [...] Verified Date/Time: 09/29/2018 12:38:07 Reading Location : [facility] B1 [id number] Ortho Consult Reading Room POCT-GLUCOSE [id number] 11:49:00 Test Item Value Reference Range Comments POC-GLUCOSE METER (BEAKER) 83 mg/dL 70-[address] [facility] [address] [facility] (test cclg=0085) [facility] [address] [id number] 10:49:00 Test Item Value Reference Range Comments TRIGLYCERIDES (BEAKER) (test 71 mg/dL Specimen slightly hemolyzed fqhq=050) TRIGLYCERIDE REFERENCE RANGELow Risk <150Borderline Risk 150-199High Risk 200-499Very High Risk>=[id number] 05:09:00 Test Item Value Reference Range Comments LIPASE (BEAKER) (test crpo=381) > U/L 8-78 [id number] 04:35:00 Test Item Value Reference Range Comments MAGNESIUM (BEAKER) (test 1.6 mg/dL 1.6-2.6 Specimen slightly hemolyzed nbiz=200) [id number] 04:35:00 Test Item Value Reference Range Comments PHOSPHORUS (BEAKER) (test 3.2 mg/dL 2.3-4.7 Specimen slightly hemolyzed uric=213) COMPREHENSIVE METABOLIC [id number] 04:35:00 Test Item Value Reference Range Comments TOTAL PROTEIN (BEAKER) 6.8 gm/dL 6.0-8.3 Specimen slightly (test lnpy=733) hemolyzed ALBUMIN (BEAKER) (test 3.8 g/dL 3.5-5.0 Specimen slightly iobq=5812) hemolyzed ALKALINE PHOSPHATASE 130 U/L 40-150 (BEAKER) (test kdqh=238) BILIRUBIN TOTAL (BEAKER) 1.7 mg/dL 0.2-1.2 Specimen slightly (test pwbo=073) hemolyzed SODIUM (BEAKER) (test 138 meq/L 136-145 rdpp=348) POTASSIUM (BEAKER) (test 3.7 meq/L 3.5-5.1 Specimen slightly uvkf=949) hemolyzed CHLORIDE (BEAKER) (test 103 meq/L 98-107 rssu=194) CO2 (BEAKER) (test 17 meq/L 22-29 wblp=666) BLOOD UREA NITROGEN 9 mg/dL 7-21 (BEAKER) (test banp=927) CREATININE (BEAKER) (test 0.65 mg/dL 0.57-1.25 Specimen slightly nahg=950) hemolyzed GLUCOSE RANDOM (BEAKER) 103 mg/dL 70-105 (test xlpd=856) CALCIUM (BEAKER) (test 8.7 mg/dL 8.4-10.2 sugi=084) AST (SGOT) (BEAKER) (test 151 U/L 5-34 Specimen slightly dino=602) hemolyzed ALT (SGPT) (BEAKER) (test 143 U/L 6-55 Specimen slightly kagl=492) hemolyzed EGFR (BEAKER) (test 143 mL/min/1.73 sq ESTIMATED GFR IS NOT qqxd=0492) m ACCURATE CREATININE CLEARANCE IN PREDICTING GLOMERULAR FILTRATION RATE. ESTIMATED GFR IS NOT APPLICABLE FOR DIALYSIS PATIENTS. PROTHROMBIN [id number] 04:34:00 Test Item Value Reference Range Comments PROTIME (BEAKER) (test usqr=670) 14.6 seconds 11.7-14.7 INR (BEAKER) (test cevy=943) 1.1 <=5.9 RECOMMENDED COUMADIN/WARFARIN INR THERAPY RANGESSTANDARD DOSE: 2.0 - 3.0 Includes: PROPHYLAXIS forvenous thrombosis, systemic embolization; TREATMENT for venous thrombosis and/or pulmonary embolus.HIGH RISK: Target INR is 2.5-3.5 for patients with mechanical heart valves.CBC W/PLT COUNT & AUTO [id number] 04:09:00 Test Item Value Reference Range Comments WHITE BLOOD CELL COUNT (BEAKER) (test yumk=408) 6.2 K/ L 3.5-10.5 RED BLOOD CELL COUNT (BEAKER) (test owsl=974) 4.33 M/ L 4.63-6.08 HEMOGLOBIN (BEAKER) (test gkir=726) 15.0 GM/DL 13.7-17.5 HEMATOCRIT (BEAKER) (test bwbm=412) 43.2 % 40.1-51.0 MEAN CORPUSCULAR VOLUME (BEAKER) (test eugy=319) 99.8 fL 79.0-92.2 MEAN CORPUSCULAR HEMOGLOBIN (BEAKER) (test 34.6 pg 25.7-32.2 uqxm=978) MEAN CORPUSCULAR HEMOGLOBIN CONC (BEAKER) (test 34.7 GM/DL 32.3-36.5 pjkc=002) RED CELL DISTRIBUTION WIDTH (BEAKER) (test 12.4 % 11.6-14.4 yzxr=144) PLATELET COUNT (BEAKER) (test bbva=683) 160 K/CU MM 150-450 MEAN PLATELET VOLUME (BEAKER) (test qrbj=894) 10.4 fL 9.4-12.4 NUCLEATED RED BLOOD CELLS (BEAKER) (test 0 /100 WBC 0-0 krpk=107) NEUTROPHILS RELATIVE PERCENT (BEAKER) (test 81 % oqqu=620) LYMPHOCYTES RELATIVE PERCENT (BEAKER) (test 7 % vxlj=540) MONOCYTES RELATIVE PERCENT (BEAKER) (test 10 % pcor=124) EOSINOPHILS RELATIVE PERCENT (BEAKER) (test 0 % jwwx=780) BASOPHILS RELATIVE PERCENT (BEAKER) (test 1 % qqmd=760) NEUTROPHILS ABSOLUTE COUNT (BEAKER) (test 5.01 K/ L 1.78-5.38 byys=685) LYMPHOCYTES ABSOLUTE COUNT (BEAKER) (test 0.44 K/ L 1.32-3.57 ktkw=705) MONOCYTES ABSOLUTE COUNT (BEAKER) (test 0.62 K/ L 0.30-0.82 lcce=500) EOSINOPHILS ABSOLUTE COUNT (BEAKER) (test 0.01 K/ L 0.04-0.54 kbsa=595) BASOPHILS ABSOLUTE COUNT (BEAKER) (test 0.03 K/ L 0.01-0.08 yhop=193) IMMATURE GRANULOCYTES-RELATIVE PERCENT (BEAKER) 1 % 0-1 (test yjlb=8688)
[2019-03-02] MEDS ORDERED: NA CHLORIDE 0.9% 1,000 ML ONE ×4 (18:14→23:57)
[2019-03-02 18:33] LABS: Absolute Lymphocytes (CBC) 1.7 K/uL (0.7-4.9); Basophils % 1.3 % (0-1.3); Hematocrit 40.7 % (39.6-49.0); Lymphocytes % 16.6 % (15.3-44.8); MPV 9.7 fL (7.6-11.3); RBC Red Blood Cell Count 4.04 M/uL (4.33-5.43)
[2019-03-02] MEDS ORDERED: MORPHINE 4 MG/ML SYR ONE ×2 (18:41→22:47)
[2019-03-02] MEDS ORDERED: ONDANSETRON 4 MG/2 ML VIAL ONE (18:41)
[2019-03-02 18:45] LABS: ALT/SGPT 73 U/L (12-78); AST/SGOT 149 U/L (15-37); Alkaline Phosphatase 297 U/L (45-117); BUN Blood Urea Nitrogen 7 mg/dL (7-18); Bicarbonate 24 mmol/L (21-32); Bilirubin Direct 0.7 mg/dL (0-0.2); Bilirubin Total 1.1 mg/dL (0.2-1.0); Glucose Level 90 mg/dL (74-106); Lipase 1980 U/L (73-393); Potassium 3.1 mmol/L (3.5-5.1); Protein, Total 7.9 g/dL (6.4-8.2); Sodium Level 140 mmol/L (136-145)
[2019-03-02] MEDS ORDERED: POTASSIUM 25 MEQ EFFERV TAB ONE (19:26)
[2019-03-02] MEDS ORDERED: THIAMINE 200 MG/2 ML INJ ONE (19:26)
--- NOTE | 2019-03-02 19:26 | RAD REPORT ---
EXAM DESCRIPTION: CT - Abdomen Pelvis W Contrast - 03/02/2019 7:03 pm CLINICAL HISTORY: Abdominal pain with nausea. COMPARISON: February 18, 2019 TECHNIQUE: Computed axial tomography of the abdomen pelvis was obtained. 100 cc Isovue-300 was admin istered intravenously. Oral contrast was not requested which limits evaluation of bowel. All CT scans are performed using dose optimization technique as appropriate and may include automated exposure control or mA/KV adjustment according to patient size. FINDINGS: Hepatomegaly. Fatty infiltration of the liver. Small hiatal hernia. The wall of the distal esophagus is thickened. The wall of the stomach and duode num is thickened. Mild dilatation of several small bowel loops. This has the appearance of an ileus The spleen and adrenals unremarkable Multiple, bilateral small nonobstructing renal calculi The pancreas is enlarged and heterogeneous. It contains several small low-density areas. Largest kelly ures 15 millimeters. Stranding is present within the adjacent fat. Fluid is present within. Pancreati c space and lesser sac. Thrombus is present within superior mesenteric and splenic veins Small amount of ascites. No evidence of diverticulitis. IMPRESSION: Enlarged and heterogeneous pancreas containing several small low-density areas likely sm all pseudocysts. These findings are compatible with moderate to marked pancreatitis Hepatomegaly with fatty infiltration Thickening of the wall of the esophagus, stomach and duodenum may be related to hypoalbuminemia or in flammation Superior mesenteric and splenic venous thrombus
[2019-03-02] MEDS ORDERED: MULTIVITAMINS 10 ML VIAL (INJ) IV ONE (19:27)
[2019-03-02] MEDS ORDERED: FOLIC ACID 5 MG/ML VIAL ONE (19:27)
[2019-03-02] MEDS ORDERED: ENOXAPARIN 80 MG/0.8 ML SQ ONE (19:52)
[2019-03-02 19:55] LABS: Protime INR 1.4
--- NOTE | 2019-03-02 22:45 | EDPHYS ---
Physician Documentation [facility] Name: Jonathan Gutierrez Age: 33 yrs Sex: Male : 1985 Arrival Date: 03/02/2019 Time: 17:56 Bed 27 Private MD: ED Physician Uriel Rico HPI: 03/02 18:21 This 33 yrs old Male presents to ER via EMS with complaints of Abdominal Pain.pm1 18:21 The patient presents with abdominal pain in the upper abdomen. Onset: The pm1 symptoms/episode began/occurred 3 day(s) ago. The symptoms radiate to both flanks. Associated signs and symptoms: Pertinent positives: nausea, vomit x 1 2 days ago. Dark stool that has improved. Reports more greenish now, Pertinent negatives: chest pain, constipation, diarrhea, dysuria, fever, shortness of breath. The symptoms are described as constant. Modifying factors: The symptoms are alleviated by nothing, the symptoms are aggravated by alcohol. Severity of pain: in the emergency department the pain is actually worse. The patient has experienced similar episodes in the past, multiple times, and the symptoms today are exactly the same, to previous pancreatitis. The patient has been recently seen at the [facility] Emergency Department, for similar complaints labs were performed, an ultrasound was performed, CT scan was performed, 10 days ago. Historical: - Allergies: 17:59 No Known Allergies; em - Home Meds: 17:59 Folic Acid Oral [Active]; Thiamine Oral [Active]; em - PMHx: 17:59 Hypertension; etoh abuse; liver "spot"; Pancreatitis; em - PSHx: 17:59 Tonsillectomy; em - Immunization history:: Adult Immunizations up to date. - Social history:: Smoking status: Patient uses tobacco products, smokes one pack cigarettes per day. - Ebola Screening: : Patient negative for fever greater than or equal to 101.5 degrees Fahrenheit, and additional compatible Ebola Virus Disease symptoms Patient denies exposure to infectious person Patient denies travel to an Ebola-affected area in the 21 days before illness onset No symptoms or risks identified at this time. ROS: 18:21 Constitutional: Negative for fever, chills, and weight loss, Eyes: Negative for injury, pm1 pain, redness, and discharge, ENT: Negative for injury, pain, and discharge, Neck: Negative for injury, pain, and swelling, Cardiovascular: Negative for chest pain, palpitations, and edema, Respiratory: Negative for shortness of breath, cough, wheezing, and pleuritic chest pain. 18:21 : Negative for injury, bleeding, discharge, and swelling, MS/Extremity: Negative for injury and deformity, Skin: Negative for injury, rash, and discoloration, Neuro: Negative for headache, weakness, numbness, tingling, and seizure. 18:21 Abdomen/GI: Positive for abdominal pain, nausea and vomiting, Negative for diarrhea, constipation. 18:21 Back: Positive for flank pain, bilaterally, Negative for pain with movement. Exam: 18:21 Constitutional: This is a well developed, well nourished patient who is awake, alert, pm1 and in no acute distress. Head/Face: Normocephalic, atraumatic. Eyes: Pupils equal round and reactive to light, extra-ocular motions intact. Lids and lashes normal. Conjunctiva and sclera are non-icteric and not injected. Cornea within normal limits. Periorbital areas with no swelling, redness, or edema. ENT: Nares patent. No nasal discharge, no septal abnormalities noted. Tympanic membranes are normal and external auditory canals are clear. Oropharynx with no redness, swelling, or masses, exudates, or evidence of obstruction, uvula midline. Mucous membranes moist. Neck: Trachea midline, no thyromegaly or masses palpated, and no cervical lymphadenopathy. Supple, full range of motion without nuchal rigidity, or vertebral point tenderness. No Meningismus. Chest/axilla: Normal chest wall appearance and motion. Nontender with no deformity. No lesions are appreciated. Cardiovascular: Regular rate and rhythm with a normal S1 and S2. No gallops, murmurs, or rubs. Normal PMI, no JVD. No pulse deficits. Respiratory: Lungs have equal breath sounds bilaterally, clear to auscultation and percussion. No rales, rhonchi or wheezes noted. No increased work of breathing, no retractions or nasal flaring. 18:21 Back: No spinal tenderness. No costovertebral tenderness. Full range of motion. Skin: Warm, dry with normal turgor. Normal color with no rashes, no lesions, and no evidence of cellulitis. MS/ Extremity: Pulses equal, no cyanosis. Neurovascular intact. Full, normal range of motion. 18:21 Abdomen/GI: Inspection: abdomen appears normal, Palpation: mild abdominal tenderness, in the left upper quadrant, mass, is not appreciated, rebound tenderness, is not appreciated. 18:21 Neuro: Orientation: is normal, Motor: is normal, moves all fours, strength is normal, strength is 5/5 in all extremities. 19:20 Abdomen/GI: Rectal exam: is unremarkable, rectal tone normal, Stool: normal, brown, pm1 guaiac negative, mass, is not appreciated, swelling, is not appreciated, tenderness, is not appreciated, Ramona HOLLAND. Vital Signs: 17:59 BP 106 / 75; Pulse 139; Resp 20; Temp 99.4(O); Pulse Ox 97% on R/A; Weight 71.21 kg em (R); Height 5 ft. 11 in. (180.34 cm) (R); Pain 8/10; 18:23 BP 102 / 69; Pulse 124; Resp 14; Pulse Ox 99% on R/A; em 18:53 BP 119 / 77; Pulse 122; Resp 18; Pulse Ox 99% on R/A; Pain 5/10; em 19:12 BP 124 / 85; Pulse 112; Resp 17; Temp 98.4(O); Pulse Ox 100% ; lt1 19:55 BP 122 / 88; Pulse 114; Resp 18; Pulse Ox 95% on R/A; tw2 20:40 BP 129 / 85; Pulse 117; Resp 17; Pulse Ox 100% on R/A; tw2 21:00 BP 141 / 94; Pulse 129; Resp 21; Pulse Ox 97% on R/A; rv 22:00 BP 125 / 84; Pulse 112; Resp 19; Pulse Ox 100% on R/A; rv 23:00 BP 130 / 87; Pulse 109; Resp 18; Pulse Ox 100% on R/A; rv 03/03 00:00 BP 117 / 84; Pulse 107; Resp 19; Pulse Ox 100% on R/A; rv 01:01 BP 106 / 63; Pulse 100; Resp 21; Pulse Ox 100% on R/A; rv 03/02 17:59 Body Mass Index 21.90 (71.21 kg, 180.34 cm) em MDM: 03/02 18:12 Patient medically screened. pm1 20:28 Data reviewed: vital signs. Data interpreted: Pulse oximetry: on room air is 95 %. pm1 Interpretation: normal. 21:25 ED course: Patient in room eating cheetos without any difficulty. Instructed the pm1 patient to stop eating because he is NPO for his pancreatitis. 21:25 ED course: Two shots of vodka this AM at 0900. Patient said he took enough alcohol pm1 today to prevent withdrawal. Drank heavy the two previous days. 22:35 ED course: Prior U/S gallbladder on 02/24/2019: No biliary tree dilation and no common pm1 duct stones identifiable. Prominent circumferential wall thickening of the gallbladder matching prior imaging. No gallstones seen on limited imaging. Today: Pending official report: Enlarged gallbladder, CBD 1.2 cm. No visible stones. . 22:37 Physician consultation: Wilton Mancilla MD was called at 22:37, was contacted at 22:37, pm1 regarding patient's condition, after a discussion of the case, a recommendation for transfer for higher level of care is made, after a discussion of the case, a recommendation for transfer is made. No GI present. Patient will need MRCP and possible ERCP. No GI pharmacy salesperson tonight and GI pharmacy salesperson tomorrow does not perform ERCP. 22:40 Counseling: I had a detailed discussion with the patient and/or guardian regarding: the pm1 historical points, exam findings, and any diagnostic results supporting the discharge/admit diagnosis, lab results, radiology results, the need to transfer to another facility, [facility] does not immediately have the required specialist. 23:54 Physician consultation: GI [facility] was contacted at 23:54, pm1 regarding regarding transfer, consult, patient's condition, and will see patient. 03/03 00:15 Physician consultation: Hospitalist [facility] James HEATH was contacted at pm1 00:16, regarding regarding transfer, patient's condition, and will see patient. 03/02 18:13 Order name: Basic Metabolic Panel; Complete Time: 18:46 pm1 03/02 18:13 Order name: CBC with Diff; Complete Time: 18:36 pm1 03/02 18:13 Order name: Creatinine for Radiology; Complete Time: 18:46 pm1 03/02 18:13 Order name: Hepatic Function; Complete Time: 18:46 pm1 03/02 18:13 Order name: Lipase; Complete Time: 18:46 pm1 03/02 18:13 Order name: ETOH Level; Complete Time: 18:46 pm1 03/02 18:13 Order name: CT Abd/Pelvis - IV Contrast Only; Complete Time: 19:33 pm1 03/02 18:13 Order name: Type And Screen; Complete Time: 19:22 pm1 03/02 19:40 Order name: PT-INR; Complete Time: 20:29 pm1 03/02 19:43 Order name: US Abdomen Limited; Complete Time: 15:29 pm1 03/02 18:13 Order name: IV Saline Lock; Complete Time: 18:21 pm1 03/02 18:13 Order name: Labs collected and sent; Complete Time: 18:21 pm1 Administered Medications: 03/02 18:21 Drug: NS 0.9% 1000 ml Route: IV; Rate: 1000 ml; Site: right forearm; em 18:35 Follow up: IV Status: Completed infusion; IV Intake: 1000ml em 18:35 Drug: Zofran 4 mg Route: IVP; Site: right forearm; ss 18:54 Follow up: Response: No adverse reaction; Nausea is decreased em 18:37 Drug: morphine 4 mg Route: IVP; Site: right forearm; ss 18:54 Follow up: Response: No adverse reaction; Marked relief of symptoms; Pain is decreased; em RASS: Alert and Calm (0) 19:22 Drug: NS 0.9% 1000 ml Route: IV; Rate: 1 bolus; Site: right antecubital; tw2 03/03 01:03 Follow up: IV Status: Completed infusion; IV Intake: 1000ml 03/02 19:42 Drug: Potassium Effervescent Tablet 50 mEq Route: PO; tw2 19:54 Follow up: Response: No adverse reaction tw2 19:42 Drug: Banana Bag - (NS 0.9% 1000 ml, foLIC Acid 1 mg, Thiamine 100 mg, Multivitamin 1 tw2 amp) Route: IV; Rate: calculated rate; Site: right antecubital; 03/03 01:03 Follow up: IV Status: Infusion continued upon transfer rv 03/02 19:54 Drug: Lovenox 1 mg/kg Route: Sub-Q; Site: right lower abdomen; tw2 22:50 Follow up: Response: No adverse reaction rv 22:50 Drug: morphine 4 mg {Note: rass 0.} Route: IVP; Site: right forearm; rv 03/03 01:02 Follow up: Response: Marked relief of symptoms; RASS: Alert and Calm (0) rv 00:01 Drug: NS 0.9% 1000 ml Route: IV; Rate: 125 ml/hr; Site: right forearm; rv 01:02 Follow up: IV Status: Infusion continued upon transfer rv Disposition: 03/02/19 22:44 Transfer ordered to [facility]. Diagnosis is Alcohol induced acute pancreatitis. - Reason for transfer: Specialty. - Accepting physician is [facility]. - Condition is Stable. - Problem is new. - Symptoms have improved. Addendum: 03/04/2019 15:38 Co-signature as Attending Physician, Uriel Rico MD. g s Signatures: Dispatcher [employer] EDMS Yobany Nobles, STRESS TEST TECHNICIAN STRESS TEST TECHNICIAN Inez Hunt RN RN ss Gaudencio Neely, HOP TRAINER HOP TRAINER pm1 Ramona Vanessa RN RN tw2 Uriel Rico MD MD gs Vicente, Ronaldo, RN RN rv Corrections: (The following items were deleted from the chart) 03/03 01:03 03/02 22:44 03/02/2019 22:44 Transfer ordered to [facility]. rv Diagnosis is Alcohol induced acute pancreatitis. Reason for transfer: Specialty. Accepting physician is [facility]. Condition is Stable. Problem is new. Symptoms have improved. pm1
--- NOTE | 2019-03-02 22:45 | ER ---
Nurse's Notes [facility] Name: Jonathan Gutierrez Age: 33 yrs Sex: Male : 1985 Arrival Date: 03/02/2019 Time: 17:56 Bed 27 Private MD: Diagnosis: Alcohol induced acute pancreatitis Presentation: 03/02 17:57 Presenting complaint: EMS states: called out for upper ABD pain that radiates to the em back for 2 days, reports nausea and bloody stools for 1 day, pt states, "I know it's pancreatitis, I've been told before". Transition of care: patient was not received from another setting of care. Onset of symptoms was February 28, 2019. Risk Assessment: Do you want to hurt yourself or someone else? Patient reports no desire to harm self or others. Initial Sepsis Screen: Does the patient meet any 2 criteria? HR > 90 bpm. No. Patient's initial sepsis screen is negative. Does the patient have a suspected source of infection? No. Patient's initial sepsis screen is negative. Care prior to arrival: None. 17:57 Method Of Arrival: EMS: [facility] em 18:03 Acuity: NEO 2 ss Historical: - Allergies: 17:59 No Known Allergies; em - Home Meds: 17:59 Folic Acid Oral [Active]; Thiamine Oral [Active]; em - PMHx: 17:59 Hypertension; etoh abuse; liver "spot"; Pancreatitis; em - PSHx: 17:59 Tonsillectomy; em - Immunization history:: Adult Immunizations up to date. - Social history:: Smoking status: Patient uses tobacco products, smokes one pack cigarettes per day. - Ebola Screening: : Patient negative for fever greater than or equal to 101.5 degrees Fahrenheit, and additional compatible Ebola Virus Disease symptoms Patient denies exposure to infectious person Patient denies travel to an Ebola-affected area in the 21 days before illness onset No symptoms or risks identified at this time. Screenin:01 Abuse screen: Denies threats or abuse. Nutritional screening: No deficits noted. em Tuberculosis screening: No symptoms or risk factors identified. Fall Risk None identified. Assessment: 17:58 General: Appears in no apparent distress. comfortable, Behavior is calm, cooperative, em Smells of alcohol, Denies fever. Pain: Complains of pain in abdomen Pain radiates to back Pain currently is 8 out of 10 on a pain scale. Pain began 2-3 days ago. Neuro: Level of Consciousness is awake, alert, obeys commands, Oriented to person, place, time, situation. Cardiovascular: Capillary refill < 3 seconds Patient's skin is warm and dry. Respiratory: Airway is patent Respiratory effort is even, unlabored, Respiratory pattern is regular, symmetrical. GI: Abdomen is flat, Bowel sounds present X 4 quads. Abd is soft X 4 quads Abdomen is tender to palpation in right lower quadrant and left lower quadrant Reports bloody stool, nausea, vomiting. Derm: Skin is intact, is healthy with good turgor, Skin is pink, warm \\T\\ dry. Musculoskeletal: Capillary refill < 3 seconds, Range of motion: intact in all extremities. 18:55 Reassessment: Patient appears in no apparent distress at this time. Patient and/or em family updated on plan of care and expected duration. Pain level reassessed. Patient is alert, oriented x 3, equal unlabored respirations, skin warm/dry/pink. rates pain 5/10, wheeled to CT via wheelchair Patient states feeling better. 19:22 Reassessment: No changes from previously documented assessment. Patient and/or family tw2 updated on plan of care and expected duration. Pain level reassessed. Patient is alert, oriented x 3, equal unlabored respirations, skin warm/dry/pink. 19:55 Reassessment: Patient appears in no apparent distress at this time. No changes from tw2 previously documented assessment. Patient and/or family updated on plan of care and expected duration. Pain level reassessed. Patient is alert, oriented x 3, equal unlabored respirations, skin warm/dry/pink. 20:39 Reassessment: Patient appears in no apparent distress at this time. No changes from tw2 previously documented assessment. Patient and/or family updated on plan of care and expected duration. Pain level reassessed. Patient is alert, oriented x 3, equal unlabored respirations, skin warm/dry/pink. 22:00 Reassessment: Patient appears in no apparent distress at this time. Patient and/or rv family updated on plan of care and expected duration. Pain level reassessed. Patient is alert, oriented x 3, equal unlabored respirations, skin warm/dry/pink. 03/03 00:00 Reassessment: Patient appears in no apparent distress at this time. Patient and/or rv family updated on plan of care and expected duration. Pain level reassessed. Patient is alert, oriented x 3, equal unlabored respirations, skin warm/dry/pink. Vital Signs: 03/02 17:59 BP 106 / 75; Pulse 139; Resp 20; Temp 99.4(O); Pulse Ox 97% on R/A; Weight 71.21 kg em (R); Height 5 ft. 11 in. (180.34 cm) (R); Pain 8/10; 18:23 BP 102 / 69; Pulse 124; Resp 14; Pulse Ox 99% on R/A; em 18:53 BP 119 / 77; Pulse 122; Resp 18; Pulse Ox 99% on R/A; Pain 5/10; em 19:12 BP 124 / 85; Pulse 112; Resp 17; Temp 98.4(O); Pulse Ox 100% ; lt1 19:55 BP 122 / 88; Pulse 114; Resp 18; Pulse Ox 95% on R/A; tw2 20:40 BP 129 / 85; Pulse 117; Resp 17; Pulse Ox 100% on R/A; tw2 21:00 BP 141 / 94; Pulse 129; Resp 21; Pulse Ox 97% on R/A; rv 22:00 BP 125 / 84; Pulse 112; Resp 19; Pulse Ox 100% on R/A; rv 23:00 BP 130 / 87; Pulse 109; Resp 18; Pulse Ox 100% on R/A; rv 03/03 00:00 BP 117 / 84; Pulse 107; Resp 19; Pulse Ox 100% on R/A; rv 01:01 BP 106 / 63; Pulse 100; Resp 21; Pulse Ox 100% on R/A; rv 03/02 17:59 Body Mass Index 21.90 (71.21 kg, 180.34 cm) em ED Course: 03/02 17:56 Patient arrived in ED. em 17:59 Arm band placed on. em 18:01 Patient has correct armband on for positive identification. Placed in gown. Bed in low em position. Call light in reach. monitoring specialist on. Pulse ox on. NIBP on. 18:03 Triage completed. ss 18:09 Gaudencio Neely NP is PHCP. pm1 18:09 Uriel Rico MD is Attending Physician. pm1 18:10 Yobany Nobles LVN is Primary Nurse. em 18:11 Inserted saline lock: 18 gauge in right forearm, using aseptic technique. Blood rv collected. 18:23 Radiology exam delayed due to lab results not completed at this time. (BUN/Creatinine). mw3 19:00 Report received from YUNIER Haywood. tw2 19:03 CT completed. Patient tolerated procedure well. Patient moved back from CT. mw3 19:04 CT Abd/Pelvis - IV Contrast Only In Process Unspecified. EDMS 19:19 Served as a drop shipment clerk during rectal exam. tw2 21:03 Ultrasound completed. Patient tolerated well. sg3 21:07 US Abdomen Limited In Process Unspecified. EDMS 03/03 01:02 Patient transferred, IV remains in place. rv Administered Medications: 03/02 18:21 Drug: NS 0.9% 1000 ml Route: IV; Rate: 1000 ml; Site: right forearm; em 18:35 Follow up: IV Status: Completed infusion; IV Intake: 1000ml em 18:35 Drug: Zofran 4 mg Route: IVP; Site: right forearm; ss 18:54 Follow up: Response: No adverse reaction; Nausea is decreased em 18:37 Drug: morphine 4 mg Route: IVP; Site: right forearm; ss 18:54 Follow up: Response: No adverse reaction; Marked relief of symptoms; Pain is decreased; em RASS: Alert and Calm (0) 19:22 Drug: NS 0.9% 1000 ml Route: IV; Rate: 1 bolus; Site: right antecubital; tw2 03/03 01:03 Follow up: IV Status: Completed infusion; IV Intake: 1000ml rv 03/02 19:42 Drug: Potassium Effervescent Tablet 50 mEq Route: PO; tw2 19:54 Follow up: Response: No adverse reaction tw2 19:42 Drug: Banana Bag - (NS 0.9% 1000 ml, foLIC Acid 1 mg, Thiamine 100 mg, Multivitamin 1 tw2 amp) Route: IV; Rate: calculated rate; Site: right antecubital; 03/03 01:03 Follow up: IV Status: Infusion continued upon transfer rv 03/02 19:54 Drug: Lovenox 1 mg/kg Route: Sub-Q; Site: right lower abdomen; tw2 22:50 Follow up: Response: No adverse reaction rv 22:50 Drug: morphine 4 mg {Note: rass 0.} Route: IVP; Site: right forearm; rv 03/03 01:02 Follow up: Response: Marked relief of symptoms; RASS: Alert and Calm (0) rv 00:01 Drug: NS 0.9% 1000 ml Route: IV; Rate: 125 ml/hr; Site: right forearm; rv 01:02 Follow up: IV Status: Infusion continued upon transfer rv Intake: 03/02 18:35 IV: 1000ml; Total: 1000ml. em 03/03 01:03 IV: 1000ml; Total: 2000ml. rv Outcome: 03/02 22:44 ER care complete, transfer ordered by MD. pm1 03/03 01:01 Transferred by ground EMS to [facility], Transfer form completed. rv X-rays sent w/ patient. Condition: good Instructed on the need for transfer. 01:03 Patient left the ED. rv Signatures: Dispatcher [employer] EDMS Yobany Nobles, CHAINSTITCH TUNNEL ELASTIC OPERATOR CHAINSTITCH TUNNEL ELASTIC OPERATOR em Inez Escalante RN RN ss Gaudencio Neely, JACOB [employer]IC[employer] pm1 Ramona Vanessa RN RN tw2 Purvi Hayward sg3 Tanja Villarreal mw3 Juan J Silva RN RN Xochilt Padgett lt1 Corrections: (The following items were deleted from the chart) 03/02 18:01 17:57 Presenting complaint: EMS states: called out for abd pain for 2 days, reports em nausea and bloody stools for 1 day, pt states, "I know it's pancreatitis, I've been told before" em 18 18:03 Acuity: NEO 3 ss ss
[2019-03-03 02:04] VITALS: TEMP 98.4
[2019-03-03 02:10] VITALS: O2SAT 100
[2019-03-03 02:14] VITALS: BP 106/63
--- NOTE | 2019-03-03 06:59 | RAD REPORT ---
EXAM DESCRIPTION: US - Abdomen Exam Limited - 03/02/2019 9:07 pm CLINICAL HISTORY: Abdominal pain Preliminary findings provided at the time of the study. COMPARISON: CT study March 02 FINDINGS: Gallbladder is fully distended but not grossly dilated. No gallstones, wall thickening or pericholecystic fluid. Common bile duct is normal with no common duct stone identified. IMPRESSION: Distended but nondilated gallbladder. No gallstones or acute gallbladder finding. No duct dilatation or evidence for duct stone.
--- NOTE | 2019-03-03 09:59 | EKG ---
Test Date: 2019-03-02 Test Time: 18:03:19 Home Care Attendant: RV MEASUREMENT RESULTS: Intervals: Rate: 131 KS: 124 QRSD: 86 QT: 316 QTc: 466 [place]: P: 62 KS: 124 QRS: 65 T: 61 INTERPRETIVE STATEMENTS: Sinus tachycardia Otherwise normal ECG Compared to ECG 02/12/2019 05:24:13 Myocardial infarct finding no longer present Electronically Signed On 03-03-19 09:59:15 CDT by Siddharth De Leon
== END 2019-03-03 01:03 | disposition short-term general hospital (02) ==
LOC: ER 17:55
DX: K85.20 Alcohol induced acute pancreatitis without necrosis or infection (principal); I10 Essential (primary) hypertension; F10.10 Alcohol abuse, uncomplicated; F17.210 Nicotine dependence, cigarettes, uncomplicated
CPT/HCPCS: 36415; 74177; 76705; 80048; 80076; 80320; 83690; 85025; 85610; 86850; 86900; 86901; 93005; 96361; 96365; 96366; 96372; 96375; 99285; J1650; J2405; J3411; J7030; Q9967

== ENCOUNTER 2019-03-17 20:59 | Emergency (ER) | payer SELFPAY ==
--- OUTSIDE RECORDS SUMMARY | 2019-03-17 21:02 | XMS REPORT | Clinical Summary ---
:1985 Author Organization [facility] Address [address] [place] [address] Care Team Providers Name Role Phone Pcp, [...] 2 (two) times daily for 90 days. oxyCODONE (OXYCONTIN) Take 1 60 tablet 0 03/07/2019 Active 20 MG 12 hr tablet tablet (20 mg total) by mouth every 12 (twelve) hours. Max Daily Amount: 40 mg oxyCODONE (OXY-IR) 10 Take 1 30 tablet 0 03/07/2019 Active mg tablet tablet (10 9 mg total) by mouth every 4 (four) hours as needed for Pain for up to 10 days. Max Daily Amount: 60 mg rivaroxaban (XARELTO) Take 1 21 tablet 0 03/07/2019 Active 15 mg Tab tablet tablet (15 9 mg total) by mouth daily with dinner for 21 days Then start the 20mg tablet daily. rivaroxaban (XARELTO) Take 1 30 tablet 1 03/29/2019 Active 20 mg Tab tablet tablet (20 mg total) by mouth daily with dinner. lisinopril Take 1 30 tablet 0 10/03/2018 [...] (PRINIVIL,ZESTRIL) 20 by mouth. 9 MG tablet chlordiazePOXIDE 10mg BID for 6 capsule 0 02/15/2019 Discontinued (LIBRIUM) 10 MG 2 days and 9 capsule then 10mg daily for 2 days and then stop. rivaroxaban (XARELTO) Take 1 30 tablet 0 03/29/2019 Discontinued 20 mg Tab tablet tablet (20 9 mg total) by mouth daily with dinner. Active Problems Problem Noted Date Acute liver [...] Encounters Date Type Specialty Care Team Description 03/03/2019 [facility] Cardiology Marlys Ramirez Alcohol-induced acute pancreatitis without infection or necrosis (Primary Dx); - Encounter MD Radha Common bile duct dilatation; 03/08/2019 Fariba Escobedo Pseudocyst of pancreas; MD Genia Splenic vein thrombosis; Megan Black Alcohol withdrawal syndrome without complication (HCC); MD Korin Superior mesenteric vein thrombosis; PVT (portal vein thrombosis) 02/14/2019 Anesthesia Event Gastroenterology Ciara Francisco 02/14/2019 Surgery Gastroenterology Jared Peter UPPER ENDOSCOPY MD Grant 02/12/2019 [facility] Internal [facility] Liza Acute blood loss anemia; - Encounter Medicine MD Yasmeen Alcohol-induced acute pancreatitis without infection or necrosis; 02/15/2019 Valarie Cannon MD Acute metabolic encephalopathy; Clement Bonilla MD Alcohol withdrawal syndrome, with delirium (HCC); Electrolyte disturbance; Elevated LFTs; Alcoholic liver disease (HCC); Alcohol withdrawal syndrome without complication (HCC) 02/12/2019 Travel 12/10/2018 [facility] Internal Leslee Castillo Alcohol withdrawal syndrome, with delirium (HCC); - Encounter Medicine MD Rashmi CARLOS EDUARDO (acute kidney injury) (HCC); 12/13/2018 Nubia, Alcohol withdrawal syndrome without complication ( HCC); Willy Li Elevated LFTs; Pneumothorax on left; Brooke Shaw MD Uncomplicated alcohol dependence (HCC); Alcohol-induced acute pancreatitis without infection or necrosis 12/10/2018 Travel 10/27/2018 [facility] Internal Fariba Escobedo Alcohol withdrawal syndrome without complication (HCC); - Encounter Violette Cormier MD Alcohol-induced acute pancreatitis without infection or necrosis; 11/01/2018 Maribeth Whalen, Elevated LFTs; Electrolyte disturbance; Misbah, Hallucination, visual; MD Sue Alcohol withdrawal delirium (HCC) 09/29/2018 [facility] General Internal Valarie Cannon MD Alcohol withdrawal syndrome, with delirium (HCC); - Encounter Medicine Kaz, Alcohol-induced acute pancreatitis, unspecified complication status; 10/02/2018 Jonathan Acute metabolic encephalopathy; MD Natacha Colitis; Maribeth Whalen, Acute alcoholic hepatitis; Alcohol-induced acute pancreatitis without infection or necrosis; Electrolyte disturbance; Essential hypertension; Uncontrolled hypertension 09/29/2018 Orders Only General Internal Medicine after 03/16/2018 Family History Medical History Relation Name Comments [...] Vital Sign Reading Time Taken Blood Pressure 131/79 03/08/2019 10:46 AM CDT Pulse 77 03/08/2019 10:46 AM CDT Temperature 36.3 C (97.3 F) 03/08/2019 10:46 AM CDT Respiratory Rate 16 03/08/2019 10:46 AM CDT Oxygen Saturation 97% 03/08/2019 10:46 AM CDT Inhaled Oxygen Concentration - - Weight 63.8 kg (140 lb 9.6 oz) 03/03/2019 2:18 AM CDT Height 180.3 cm (5' 11") 03/03/2019 2:18 AM CDT Body Mass Index 19.61 03/03/2019 2:18 AM CDT Plan of Treatment Not on file Procedures Procedure Name Priority Date/Time Associated Comments Diagnosis REPORT OF PROCEDURE - 03/11/2019 1:42 ENDOSCOPY SCAN PM CDT CBC W/PLT COUNT & AUTO Routine 03/07/2019 5:30 Results for this DIFFERENTIAL AM CDT procedure are in the results section. COMPREHENSIVE Routine 03/07/2019 5:30 Results for this METABOLIC PANEL AM CDT procedure are in the results section. CBC W/PLT COUNT & AUTO Routine 03/07/2019 5:30 Results for this DIFFERENTIAL AM CDT procedure are in the results section. CBC W/PLT COUNT & AUTO Routine 03/06/2019 5:40 Results for this DIFFERENTIAL AM CDT procedure are in the results section. COMPREHENSIVE Routine 03/06/2019 5:40 Results for this METABOLIC PANEL AM CDT procedure are in the results section. CBC W/PLT COUNT & AUTO Routine 03/06/2019 5:40 Results for this DIFFERENTIAL AM CDT procedure are in the results section. CBC W/PLT COUNT & AUTO Routine 03/05/2019 4:59 Results for this DIFFERENTIAL AM CDT procedure are in the results section. MAGNESIUM CRYSTAL 03/05/2019 4:59 Results for this AM CDT procedure are in the results section. COMPREHENSIVE Routine 03/05/2019 4:59 Results for this METABOLIC PANEL AM CDT procedure are in the results section. CBC W/PLT COUNT & AUTO Routine 03/05/2019 4:59 Results for this DIFFERENTIAL AM CDT procedure are in the results section. CBC W/PLT COUNT & AUTO CRYSTAL 03/04/2019 8:55 Results for this DIFFERENTIAL AM CDT procedure are in the results section. MAGNESIUM CRYSTAL 03/04/2019 8:55 Results for this AM CDT procedure are in the results section. COMPREHENSIVE CRYSTAL 03/04/2019 8:55 Results for this METABOLIC PANEL AM CDT procedure are in the results section. CBC W/PLT COUNT & AUTO CRYSTAL 03/04/2019 8:55 Results for this DIFFERENTIAL AM CDT procedure are in the results section. CBC W/PLT COUNT & AUTO Routine 03/03/2019 4:41 Results for this DIFFERENTIAL AM CDT procedure are in the results section. PROTHROMBIN TIME/INR Routine 03/03/2019 4:41 Results for this AM CDT procedure are in the results section. CBC W/PLT COUNT & AUTO Routine 03/03/2019 4:41 Results for this DIFFERENTIAL AM CDT procedure are in the results section. COMPREHENSIVE Routine 03/03/2019 4:41 Results for this METABOLIC PANEL AM CDT procedure are in the results section. REPORT OF PROCEDURE - 02/17/2019 12:40 ENDOSCOPY [...] 326 ms QTC Calculation(Bazett) 523 ms P [place] 60 degrees R [place] 81 degrees T [place] 13 degrees Sinus tachycardia Cannot rule out Anterior infarct , age undetermined T wave abnormality, consider inferolateral ischemia Abnormal ECG No previous ECGs available ECG 12-LEAD Routine 09/29/2018 3:45 AM CDT after 03/16/2018 Results EKG-SCANNED (03/11/2019 1:42 PM CDT)Only the most recent of3 resultswithin the time period is included. Narrative Performed At CBC with platelet count + automated diff (03/07/2019 5:30 AM CDT)Only the most recent of17 resultswithin the time period is included. WBC 4.0 3.5 - 10.5 K/L [facility] RBC 3.23 (L) 4.63 - 6.08 M/L [facility] Hemoglobin 10.6 (L) 13.7 - 17.5 GM/DL [facility] Hematocrit 33.2 (L) 40.1 - 51.0 % [facility] MCV 102.8 (H) 79.0 - 92.2 fL [facility] MCH 32.8 (H) 25.7 - 32.2 pg [facility] MCHC 31.9 (L) 32.3 - 36.5 GM/DL [facility] RDW 15.5 (H) 11.6 - 14.4 % [facility] Platelets 226 150 - 450 K/CU MM [facility] MPV 10.4 9.4 - 12.4 fL [facility] nRBC 0 0 - 0 /100 WBC [facility] % Neutros 54 % [facility] % Lymphs 29 % [facility] % Monos 9 % [facility] % Eos 6 % [facility] % Baso 1 % [facility] # Neutros 2.17 1.78 - 5.38 K/L [facility] # Lymphs 1.18 (L) 1.32 - 3.57 K/L [facility] # Monos 0.37 0.30 - 0.82 K/L [facility] # Eos 0.25 0.04 - 0.54 K/L [facility] # Baso 0.04 0.01 - 0.08 K/L [facility] Immature 0 0 - 1 % [facility] Specimen Blood Performing Organization Address City/State/Zipcode Phone Number [facility] [address] [place] [address] CENTER Comprehensive metabolic panel (03/07/2019 5:30 AM CDT)Only the most recent of18 resultswithin the time period is included. Protein, Total 6.2 6.0 - 8.3 gm/dL [facility] Albumin 2.7 (L) 3.5 - 5.0 g/dL [facility] Alkaline Phosphatase 195 (H) 40 - 150 U/L [facility] Total Bilirubin 0.7 0.2 - 1.2 mg/dL [facility] Sodium 138 136 - 145 meq/L [facility] Potassium 3.6 3.5 - 5.1 meq/L [facility] Chloride 102 98 - 107 meq/L [facility] CO2 28 22 - 29 meq/L [facility] BUN 2 (L) 7 - 21 mg/dL [facility] Creatinine 0.52 (L) 0.57 - 1.25 mg/dL [facility] Glucose 103 70 - 105 mg/dL [facility] Calcium 8.5 8.4 - 10.2 mg/dL [facility] AST 67 (H) 5 - 34 U/L [facility] ALT 31 6 - 55 U/L [facility] EGFR 184Comment: ESTIMATED mL/min/1.73 sq m [facility] GFR IS NOT ACCURATE [facility] CREATININE CLEARANCE IN PREDICTING GLOMERULAR FILTRATION RATE. ESTIMATED GFR IS NOT APPLICABLE FOR DIALYSIS PATIENTS. Specimen Blood Performing Organization Address City/[facility]/Zipcode Phone Number [address] [address] [phone] CENTER Magnesium (03/05/2019 4:59 AM CDT)Only the most recent of16 resultswithin the time period is included. Magnesium 1.7 1.6 - 2.6 mg/dL [facility] Specimen Blood Performing Organization Address City/[facility]/Zipcode Phone Number [place] [phone] [place] [address] [place] Prothrombin time/INR (03/03/2019 4:41 AM CDT)Only the most recent of5 resultswithin the time period is included. Protime 17.0 (H) 11.9 - 14.2 seconds [facility] INR 1.5 <=5.9 [facility] Specimen Blood Narrative Performed At Effective 12/11/2018: PT Reference Range [facility] Change New: 11.9-14.2Previous: 11.7-14.7 RECOMMENDED COUMADIN/WARFARIN INR THERAPY RANGES STANDARD DOSE: 2.0-3.0Includes: PROPHYLAXIS for venous thrombosis, systemic embolization; TREATMENT for venous thrombosis and/or pulmonary embolus. HIGH RISK: Target INR is 2.5-3.5 for patients wiht mechanical heart valves. Performing Organization Address City/[facility] Phone Number [address] [address] [place] RHYTHM STRIP - SCAN (02/17/2019 12:40 PM CDT)Only the most recent of4 resultswithin the time period is included. Narrative Performed At POC-Glucose meter (02/15/2019 7:19 AM CDT)Only the most recent of10 resultswithin the time period is included. POC-Glucose Meter 90Comment: TESTED AT 70 - 110 mg/dL [address] [address] Specimen Blood Performing Organization Address City/[facility] Phone Number [address] [address] CENTER Phosphorus (02/15/2019 4:38 AM CDT)Only the most recent of11 resultswithin the time period is included. Phosphorus 2.4 2.3 - 4.7 mg/dL [facility] Specimen Blood Performing Organization Address City/[facility]/Zipcode Phone Number [address] [address] [place] Lipase (02/15/2019 4:38 AM CDT)Only the most recent of5 resultswithin the time period is included. Lipase 231 (H) 8 - 78 U/L [facility] Specimen Blood Performing Organization Address City/[facility] Phone Number [address] [address] [place] Hepatic function panel (02/15/2019 4:38 AM CDT)Only the most recent of3 resultswithin the time period is included. Protein, Total 5.7 (L) 6.0 - 8.3 gm/dL [facility] Albumin 2.5 (L) 3.5 - 5.0 g/dL [facility] Total Bilirubin 1.7 (H) 0.2 - 1.2 mg/dL [facility] Bilirubin, Direct 1.3 (H) 0.1 - 0.5 mg/dL [facility] Alkaline Phosphatase 411 (H) 40 - 150 U/L [facility] AST 173 (H) 5 - 34 U/L [facility] ALT 53 6 - 55 U/L [facility] Specimen Blood Performing Organization Address [facility] [place] [address] [phone] [place] REPORT OF PROCEDURE - ENDOSCOPY URL (02/14/2019 12:41 PM CDT) Narrative Performed At Hemoglobin and hematocrit (02/14/2019 3:39 AM CDT)Only the most recent of3 resultswithin the time period is included. Hemoglobin 9.4 (L) 13.7 - 17.5 GM/DL [facility] Hematocrit 28.9 (L) 40.1 - 51.0 % [facility] Specimen Blood Performing Organization Address City/[facility]/Zipcode Phone Number [facility] [address] [place] [address] [phone] [place] TRANSFUSION SERVICE REPORT - SCAN (02/13/2019 5:52 PM CDT) Narrative Performed At CBC (Hemogram only) (02/13/2019 4:35 AM CDT)Only the most recent of2 resultswithin the time period is included. WBC 4.8 3.5 - 10.5 K/L [facility] RBC 2.41 (L) 4.63 - 6.08 M/L [facility] Hemoglobin 8.1 (L) 13.7 - 17.5 GM/DL [facility] Hematocrit 24.1 (L) 40.1 - 51.0 % [facility] MCV 100.0 (H) 79.0 - 92.2 fL [facility] MCH 33.6 (H) 25.7 - 32.2 pg [facility] MCHC 33.6 32.3 - 36.5 GM/DL [facility] RDW 22.4 (H) 11.6 - 14.4 % [facility] Platelets 135 (L) 150 - 450 K/CU MM [facility] MPV 10.0 9.4 - 12.4 fL [facility] nRBC 1 (H) 0 - 0 /100 WBC [facility] Specimen Blood Performing Organization Address City/State/Zipcode Phone Number [facility] [address] [place] [address] [place] Basic Metabolic Panel (02/13/2019 12:51 AM CDT)Only the most recent of5 resultswithin the time period is included. Sodium 137 136 - 145 meq/L [facility] Potassium 3.1 (L) 3.5 - 5.1 meq/L [facility] Chloride 104 98 - 107 meq/L [facility] CO2 24 22 - 29 meq/L [facility] BUN 3 (L) 7 - 21 mg/dL [facility] Creatinine 0.50 (L) 0.57 - 1.25 mg/dL [facility] Glucose 124 (H) 70 - 105 mg/dL [facility] Calcium 6.5 (L) 8.4 - 10.2 mg/dL [facility] EGFR 193Comment: ESTIMATED GFR IS mL/min/1.73 sq m [facility] NOT ACCURATE CREATININE [facility] CENTER CLEARANCE IN PREDICTING GLOMERULAR FILTRATION RATE. ESTIMATED GFR IS NOT APPLICABLE FOR DIALYSIS PATIENTS. Specimen Blood Performing Organization Address City/[facility] Phone Number [address] [address] [phone] CENTER ABORH, manual (02/12/2019 3:42 PM CDT) ABO Grouping B [facility] Rh Factor POS [facility] Specimen Blood Performing Organization Address [facility] Phone Number [address] [address] [phone] Drug screen, urine, comprehensive (02/12/2019 3:34 PM CDT) Specimen Urine Narrative Performed At Type and screen, automated (02/12/2019 1:56 PM CDT) ABO/RH AUTOMATED (BEAKER) B POSITIVE [facility] Ab Scrn NEGATIVE [facility] Specimen Blood Performing Organization Address [facility] Phone Number [address] [address] Ethanol (02/12/2019 1:56 PM CDT) Ethanol Lvl <10 <=10 mg/dL [facility] Specimen Blood Performing Organization Address City/[facility] Phone Number [address] [address] CENTER PT/aPTT (02/12/2019 1:55 PM CDT) Protime 17.8 (H) 11.9 - 14.2 seconds [facility] INR 1.6 <=5.9 [facility] PTT 34.9 22.5 - 36.0 seconds [facility] Specimen Blood Narrative Performed At Effective 12/11/2018: PT Reference Range [facility] Change New: 11.9-14.2Previous: 11.7-14.7 RECOMMENDED COUMADIN/WARFARIN INR THERAPY RANGES STANDARD DOSE: 2.0-3.0Includes: PROPHYLAXIS for venous thrombosis, systemic embolization; TREATMENT for venous thrombosis and/or pulmonary embolus. HIGH RISK: Target INR is 2.5-3.5 for patients wiht mechanical heart valves. Performing Organization Address [facility] Phone Number [address] [address] CENTER Lactic acid, venous (02/12/2019 1:55 PM CDT)Only the most recent of4 resultswithin the time period is included. Lactate, Venous 1.5 0.5 - 2.2 mmol/L [facility] Specimen Blood Performing Organization Address City/[facility] Phone Number [address] [address] CENTER Fibrinogen (02/12/2019 1:55 PM CDT) Fibrinogen 304 225 - 434 mg/dl [facility] Specimen Blood Performing Organization Address [facility]/Zipcode Phone Number [address] [address] CENTER D-dimer (02/12/2019 1:55 PM CDT) D-Dimer, Quant 4.23 (H) <0.50 MG/L FEU [facility] Specimen Blood Narrative Performed At Intended Use: The D-Dimer Assay can be used [facility] to aid in the diagnosis of Deep Vein Thrombosis (DVT) and Pulmonary Embolism Disease (PED). In patients with low pre-test probability, various studies concerning STA Liatest D-dimer test have reported that with a cutoff value of 0.50 MG/L FEU, the Negative Predictive Value (NPV) regarding the exclusion of thrombosis is within 95-100% range. Performing Organization Address City/[facility] [place] [address] [place] Lactate dehydrogenase (LDH) (02/12/2019 1:55 PM CDT) LDH 572 (H) 125 - 220 U/L [facility] Specimen Blood Performing Organization Address [facility] Phone Number [address] [address] [place] Amylase (02/12/2019 1:55 PM CDT) Amylase 160 (H) 25 - 125 U/L [facility] Specimen Blood Narrative Performed At Specimen slightly icteric [facility] Performing Organization Address [facility] Phone Number [address] [address] [phone] [place] Ammonia (02/12/2019 1:55 PM CDT) Ammonia 50 18 - 72 mol/L [facility] Specimen Blood Performing Organization Address [facility] Phone Number [address] [address] [place] MR abdomen without IV contrast MRCP (12/12/2018 12:17 PM CDT) Specimen Narrative Performed At FINAL REPORT [facility] MRCP, MRI of abdomen without contrast [...] MD Report Verified Date/Time:12/12/2018 13:31:00 Reading Location: [place] [id number] CT Body Reading Room Procedure Note Interface, [...] Report Verified Date/Time: 12/12/2018 13:31:00 Reading Location: [facility] [id number] CT Body Reading Room Performing Organization Address City/State/Zipcode Phone Number [facility] [place] esoph swallow funct with cine video (12/11/2018 10:40 AM CDT) Specimen Narrative Performed At FINAL REPORT [facility] INDICATION: Pneumomediastinum. Evaluate for esophageal perforation. COMPARISON: [...] MD Report Verified Date/Time:12/11/2018 12:02:17 Reading Location: [facility] [id number] Ortho Consult Reading Room Procedure [...] Report Verified Date/Time: 12/11/2018 12:02:17 Reading Location: [facility] [id number] Ortho Consult Reading Room Performing Organization Address City/State/Zipcode Phone Number [facility] XR chest 1 view portable / bedside (12/10/2018 7:15 AM CDT)Only the most recent of2 resultswithin the time period is included. Specimen Narrative Performed At FINAL REPORT [facility] History: Outside or presumptive diagnosis of pneumomediastinum. [...] MD Report Verified Date/Time:12/10/2018 20:13:39 Reading Location: [address] Reading Room Procedure Note Interface, External [...] Report Verified Date/Time: 12/10/2018 20:13:39 Reading Location: [address] Reading Room Performing Organization Address City/State/Zipcode Phone Number [facility] US abdominal with doppler (10/31/2018 9:52 AM CDT) Specimen Narrative Performed At FINAL REPORT [facility] Abdominal Doppler Ultrasound Clinical Diagnosis: Portal hypertension [...] MD Report Verified Date/Time:10/31/2018 10:43:58 Reading Location: [address] Ultrasound Reading Room Procedure Note Interface, [...] mm. Unremarkable abdominal Doppler ultrasound. Signed: Marilu Shapre MD Report Verified Date/Time: 10/31/2018 10:43:58 Reading Location: [facility] [id number] Ultrasound Reading Room Performing Organization Address City/State/Zipcode Phone Number [facility] Hemoglobin A1c (10/30/2018 3:54 AM CDT) Hemoglobin A1C 4.9 4.3 - 6.1 % [facility] CENTER Specimen Blood Performing Organization Address City/State/Zipcode Phone Number [facility] [address] [place] [address] CENTER XR abdomen / KUB 1 view (10/29/2018 1:13 PM CDT) Specimen Narrative Performed At FINAL REPORT [facility] TECHNIQUE: Supine radiographs of the abdomen dated 10/29/2018. HISTORY: Abdominal distention. COMPARISON: None IMPRESSION: No air-filled, dilated loops of bowel to suggest obstruction. No free intraperitoneal air. No abnormal soft tissue mass or calcification. Signed: Nancy Concepcion MD Report Verified Date/Time:10/29/2018 14:17:17 Reading Location: [facility] Radiology Reading Room Procedure Note Interface, External Ris In - 10/29/2018 2:19 PM CDT FINAL REPORT TECHNIQUE: Supine radiographs of the abdomen dated 10/29/2018. HISTORY: Abdominal distention. COMPARISON: None IMPRESSION: No air-filled, dilated loops of bowel to suggest obstruction. No free intraperitoneal air. No abnormal soft tissue mass or calcification. Signed: Nancy Concepcion MD Report Verified Date/Time: 10/29/2018 14:17:17 Reading Location: [facility] Radiology Reading Room Performing Organization Address City/[facility] Phone Number [facility] Lipid panel (10/29/2018 4:13 AM CDT) Triglycerides 90 mg/dL [facility] Cholesterol 140 mg/dL [facility] HDL 37 mg/dL [facility] LDL Calculated 85 mg/dL [facility] Specimen Blood Narrative Performed At Triglyceride Reference Range: [facility] Low Risk <150 [id number] High Risk 200-499 Very High Risk>=500 Cholesterol Reference Range: Low Risk <200 [id number] High Risk>240 HDL Cholesterol Reference Range: Low Risk >=60 High Risk <40 LDL Cholesterol Reference Range: Optimal<100 Near [id number] [id number] Very High >=190 Performing Organization Address [facility] Phone Number [facility] [address] [place] [address] CENTER STD Panel - CT/GC RNA (10/28/2018 5:53 PM CDT) C. trachomatis RNA, TMA NOT DETECTED [facility] N. gonorrhoeae RNA, TMA NOT DETECTED [facility] Comment: INCORPORATED REFERENCE RANGE:NOT DETECTED This test was performed using the APTIMA(R) COMBO2 Assay (GEN-PROBE). Specimen Urine Narrative Performed At Performing Lab [facility] *[facility] [address] [facility] [place] [address] Maico Villarreal MD Performing Organization Address City/[facility]/Zipcode Phone Number [place] [address] [facility]ORPOR[facility] [address] [facility] Urinalysis w/Microscopic + Reflex to Culture (10/28/2018 5:52 PM CDT) Color, UA Yellow [facility] Clarity, UA Clear [facility] Specific [place], UA 1.007 1.001 - 1.035 [facility] pH, UA 7.5 5.0 - 8.0 [facility] Protein, UA 20 mg/dL (A) Negative [facility] Glucose, UA Negative Negative [facility] Ketones, UA 20 mg/dL (A) Negative [facility] Bilirubin, UA Negative Negative [facility] Blood, UA Trace (A) Negative [facility] Nitrite, UA Negative Negative [facility] Leukocytes, UA Negative Negative [facility] Urobilinogen, UA 2.0 (H) 0.2 - 1.0 mg/dL [facility] RBC, UA 3 /HPF [facility] WBC, UA <1 /HPF [facility] Mucus Rare [facility] Specimen Source [facility] Specimen Urine Performing Organization Address [facility]/Zipcode Phone Number [facility] [address] [place] [address] [phone] [place] Blood Culture - Routine (Right Venipuncture) (10/28/2018 12:40 PM CDT)Only the most recent of2 resultswithin the time period is included. Result No growth in 5 days [facility] Specimen Blood Performing Organization Address City/[facility] Hospitalcode Phone Number [facility] [address] [place] [address] [place] Hepatitis A antibody, IgG (10/28/2018 12:22 PM CDT) Hep A IgG Nonreactive Nonreactive [facility] Specimen Blood Performing Organization Address City/[facility]/Zipcode Phone Number [address] [address] [phone] CENTER Vitamin B12 and Folate (10/28/2018 12:22 PM CDT) Vitamin B12 1,678 (H) 213 - 816 pg/mL [facility] Folate 19.4 >=7.0 ng/mL [facility] Specimen Blood Performing Organization Address City/[facility] Hospitalcode Phone Number [address] [address] CENTER Iron, TIBC, % sat. (without ferritin) (10/28/2018 12:22 PM CDT) Iron 44.0 40.0 - 160.0 ug/dL [facility] TIBC 186 (L) 250 - 450 ug/dL [facility] Iron % Saturation 24 20 - 55 % [facility] Specimen Blood Performing Organization Address [facility] Hospitalcowy Phone Number [address] [address] [phone] [place] HIV-1 Antigen with HIV-1/2 Antibody (10/28/2018 12:22 PM CDT) HIV-1 Antigen with HIV 1&2 Nonreactive Nonreactive [facility] Specimen Blood Performing Organization Address City/[facility] Hospitalcode Phone Number [address] [address] CENTER Hepatitis C antibody (10/28/2018 12:22 PM CDT) Hepatitis C Ab Nonreactive Nonreactive [facility] Specimen Blood Performing Organization Address [facility] Hospitalcode Phone Number [address] [address] CENTER Hepatitis A antibody, IgM (10/28/2018 12:22 PM CDT) Hep A IgM Nonreactive Nonreactive [facility] Specimen Blood Performing Organization Address City/[facility] Hospitalcode Phone Number [address] [address] [place] Hepatitis B core antibody, total (10/28/2018 12:22 PM CDT) Hep B Core Total Ab Nonreactive Nonreactive [facility] Specimen Blood Performing Organization Address City/[facility] Hospitalcode Phone Number [address] [address] [phone] [place] Hepatitis C PCR, Quantitative (10/28/2018 12:22 PM CDT) HCV PCR, Quantitative HCV RNA not detected HCV RNA not detected [facility] Specimen Blood Narrative Performed At This test uses a Real-Time Polymerase Chain [facility] Reaction (RT-PCR) methodology and was performed using MARIANO Ampliprep/MARIANO TaqMan HCV test kit version 2.0 ([employer] Reportable range for this assay is 15 - 100,000,000 IU per mL (1.18 - 8.00 Log IU/mL). Performing Organization Address [facility] Hospital[facility] Phone Number [address] [address] [phone] CENTER RPR (10/28/2018 12:22 PM CDT) RPR Nonreactive Nonreactive [facility] Specimen Blood Performing Organization Address City/[facility] Hospitalcode Phone Number [address] [address] [phone] CENTER Hepatitis B surface antibody (10/28/2018 12:22 PM CDT) Hep B S Ab 34.5 (H) <8.0 mIU/mL [facility] Specimen Blood Performing Organization Address [facility]/Zipcode Phone Number [address] [address] [phone] [place] Hepatitis B surface antigen (10/28/2018 12:22 PM CDT) hepatitis B Surface Ag Nonreactive Nonreactive [facility] Specimen Blood Performing Organization Address City/State/Zipcode Phone Number [facility] [address] [place] [address] CENTER Ferritin (10/28/2018 12:22 PM CDT) Ferritin 1,698 (H) 5 - 275 ng/mL [facility] Specimen Blood Performing Organization Address City/State/Zipcode Phone Number [facility] [address] [place] [address] [phone] CENTER US abdomen limited (09/30/2018 5:40 AM CDT) Specimen Narrative Performed At FINAL REPORT Clipmarks Right upper quadrant abdominal ultrasound, 09/30/2018. History: [...] MD Report Verified Date/Time:09/30/2018 08:05:48 Reading Location: [address] Ultrasound Reading Room Procedure Note Interface, [...] Report Verified Date/Time: 09/30/2018 08:05:48 Reading Location: [address] Ultrasound Reading Room Performing Organization Address City/[facility]/Zipcode Phone Number [facility] Procalcitonin (09/30/2018 12:14 AM CDT) Procalcitonin 0.48 (H) <0.05 ng/mL [facility] Specimen Blood Narrative Performed At SEPSIS RISK (ng/mL) [facility] Low:0.05-0.50 Intermediate: 0.51-2.00 High: >=2.01 Performing Organization Address City/[facility]/Zipcode Phone Number [address] [address] [place] Potassium (09/29/2018 2:14 PM CDT) Potassium 3.4 (L) 3.5 - 5.1 meq/L [facility] Specimen Blood Performing Organization Address City/State/Zipcode Phone Number [facility] [address] [place] [address] [place] [address] abdomen/pelvis without & with IV contrast (09/29/2018 12:30 PM CDT) Specimen Narrative Performed At FINAL REPORT [facility] CT abdomen with and without [...] MD Report Verified Date/Time:09/29/2018 12:38:07 Reading Location: [facility] [id number] Ortho Consult Reading Room Procedure [...] Report Verified Date/Time: 09/29/2018 12:38:07 Reading Location: [facility] [id number] Ortho Consult Reading Room Performing Organization Address City/State/Zipcode Phone Number GE RIS Triglycerides (09/29/2018 3:51 AM CDT) Triglycerides 71Comment: Specimen slightly mg/dL [facility] hemolyzed [facility] Specimen Blood Narrative Performed At TRIGLYCERIDE REFERENCE RANGE [facility] Low Risk<150 Borderline Risk 150-199 High [id number] Very High Risk >=500 Performing Organization Address City/[facility] HospitalcoTrion Worlds Phone Number [place] [phone] [place] [address] CENTER ECG 12 lead (09/29/2018 3:45 AM CDT) Specimen Narrative Performed At Ventricular Rate 155 BPM GE MUSE Atrial Rate 155 BPM P-R Interval 120 ms QRS Duration 88 ms Q-T Interval 326 ms QTC Calculation(Bazett) 523 ms P [place] 60 degrees R [place] 81 degrees T [place] 13 degrees Sinus tachycardia Cannot rule out [...] 326 ms QTC Calculation(Bazett) 523 ms P [place] 60 degrees R [place] 81 degrees T [place] 13 degrees Sinus tachycardia Cannot rule out Anterior infarct , age undetermined T wave abnormality, consider inferolateral ischemia Abnormal ECG No previous ECGs available Confirmed by MD Rosado Roberto ([id number]) on 09/29/2018 2:19:06 PM Performing Organization Address City/[employer]/[facility] Hospitalcode Phone Number GE MUSE after 03/16/2018 Advance Directives For more information, please contact:[address] [place], [place] [phone] Code Status Date Activated Date Inactivated Comments Full Code 03/03/2019 2:29 AM 03/08/2019 8:01 PM This code status was determined by: Patient Full Code 02/12/2019 12:35 PM 02/15/2019 2:48 PM This code status was determined by: Patient Full Code 10/27/2018 11:55 PM 11/01/2018 6:16 PM This code status was determined by: Patient Full Code 09/29/2018 3:15 AM 10/02/2018 6:49 PM This code status was determined by: Patient
--- OUTSIDE RECORDS SUMMARY | 2019-03-17 21:04 | XMS REPORT ---
:1985 Author Organization [facility] Address [address] [place] [address] Care Team Providers Name Role Phone JULES YAÑEZ Unavailable Unavailable CHON JACOME Unavailable Unavailable MIKAYLA MENDEZ Unavailable Unavailable YENNY NELSON Unavailable Unavailable ИВАН REMY Unavailable Unavailable Problems This patient has no known problems. Allergies, Adverse Reactions, Alerts This patient has no known allergies or adverse reactions. Medications This patient has no known medications. Results Test Description Test Time Test Comments Text Results Atomic Results Result Comments COMPREHENSIVE METABOLIC PANEL 2019-03-07 06:44:00 Test Item Value Reference Range Comments TOTAL PROTEIN (BEAKER) (test 6.2 gm/dL 6.0-8.3 vwhm=440) ALBUMIN (BEAKER) (test 2.7 g/dL 3.5-5.0 nwnp=9193) ALKALINE PHOSPHATASE 195 U/L 40-150 (BEAKER) (test fkkt=614) BILIRUBIN TOTAL (BEAKER) 0.7 mg/dL 0.2-1.2 (test hgnz=179) SODIUM (BEAKER) (test 138 meq/L 136-145 xdmj=396) POTASSIUM (BEAKER) (test 3.6 meq/L 3.5-5.1 faif=081) CHLORIDE (BEAKER) (test 102 meq/L 98-107 upig=751) CO2 (BEAKER) (test peln=565) 28 meq/L 22-29 BLOOD UREA NITROGEN (BEAKER) 2 mg/dL 7-21 (test egjz=739) CREATININE (BEAKER) (test 0.52 mg/dL 0.57-1.25 rvgf=797) GLUCOSE RANDOM (BEAKER) 103 mg/dL 70-105 (test owlp=941) CALCIUM (BEAKER) (test 8.5 mg/dL 8.4-10.2 ohsm=444) AST (SGOT) (BEAKER) (test 67 U/L 5-34 nrrh=390) ALT (SGPT) (BEAKER) (test 31 U/L 6-55 bojq=165) EGFR (BEAKER) (test 184 mL/min/1.73 sq m ESTIMATED GFR IS NOT fmhz=7262) ACCURATE CREATININE CLEARANCE IN PREDICTING GLOMERULAR FILTRATION RATE. ESTIMATED GFR IS NOT APPLICABLE FOR DIALYSIS PATIENTS. CBC W/PLT COUNT & AUTO [id number] 06:09:00 Test Item Value Reference Range Comments WHITE BLOOD CELL COUNT (BEAKER) (test zbjj=324) 4.0 K/ L 3.5-10.5 RED BLOOD CELL COUNT (BEAKER) (test ntkq=658) 3.23 M/ L 4.63-6.08 HEMOGLOBIN (BEAKER) (test swao=191) 10.6 GM/DL 13.7-17.5 HEMATOCRIT (BEAKER) (test ynad=872) 33.2 % 40.1-51.0 MEAN CORPUSCULAR VOLUME (BEAKER) (test drha=580) 102.8 fL 79.0-92.2 MEAN CORPUSCULAR HEMOGLOBIN (BEAKER) (test 32.8 pg 25.7-32.2 jrjr=168) MEAN CORPUSCULAR HEMOGLOBIN CONC (BEAKER) (test 31.9 GM/DL 32.3-36.5 dllc=823) RED CELL DISTRIBUTION WIDTH (BEAKER) (test 15.5 % 11.6-14.4 kmyg=685) PLATELET COUNT (BEAKER) (test gczb=883) 226 K/CU MM 150-450 MEAN PLATELET VOLUME (BEAKER) (test tigx=900) 10.4 fL 9.4-12.4 NUCLEATED RED BLOOD CELLS (BEAKER) (test 0 /100 WBC 0-0 ehod=931) NEUTROPHILS RELATIVE PERCENT (BEAKER) (test 54 % lypa=418) LYMPHOCYTES RELATIVE PERCENT (BEAKER) (test 29 % xdyj=146) MONOCYTES RELATIVE PERCENT (BEAKER) (test 9 % ajhj=130) EOSINOPHILS RELATIVE PERCENT (BEAKER) (test 6 % zsbo=896) BASOPHILS RELATIVE PERCENT (BEAKER) (test 1 % rwsc=580) NEUTROPHILS ABSOLUTE COUNT (BEAKER) (test 2.17 K/ L 1.78-5.38 uzqn=515) LYMPHOCYTES ABSOLUTE COUNT (BEAKER) (test 1.18 K/ L 1.32-3.57 asmo=041) MONOCYTES ABSOLUTE COUNT (BEAKER) (test 0.37 K/ L 0.30-0.82 qxhn=582) EOSINOPHILS ABSOLUTE COUNT (BEAKER) (test 0.25 K/ L 0.04-0.54 gulf=755) BASOPHILS ABSOLUTE COUNT (BEAKER) (test 0.04 K/ L 0.01-0.08 sjzm=653) IMMATURE GRANULOCYTES-RELATIVE PERCENT (BEAKER) 0 % 0-1 (test vesf=7260) COMPREHENSIVE METABOLIC [id number] 07:17:00 Test Item Value Reference Range Comments TOTAL PROTEIN (BEAKER) 7.3 gm/dL 6.0-8.3 (test wrjg=560) ALBUMIN (BEAKER) (test 3.2 g/dL 3.5-5.0 nfek=1656) ALKALINE PHOSPHATASE 235 U/L 40-150 (BEAKER) (test pyok=010) BILIRUBIN TOTAL (BEAKER) 0.9 mg/dL 0.2-1.2 (test bicv=739) SODIUM (BEAKER) (test 135 meq/L 136-145 zprc=441) POTASSIUM (BEAKER) (test 3.6 meq/L 3.5-5.1 xdri=053) CHLORIDE (BEAKER) (test 101 meq/L 98-107 hmuo=487) CO2 (BEAKER) (test 29 meq/L 22-29 igsy=315) BLOOD UREA NITROGEN < mg/dL 7-21 (BEAKER) (test ocaz=710) CREATININE (BEAKER) (test 0.56 mg/dL 0.57-1.25 dzsk=689) GLUCOSE RANDOM (BEAKER) 87 mg/dL 70-105 (test wprn=259) CALCIUM (BEAKER) (test 8.6 mg/dL 8.4-10.2 pjry=516) AST (SGOT) (BEAKER) (test 96 U/L 5-34 dudc=578) ALT (SGPT) (BEAKER) (test 40 U/L 6-55 zjcx=423) EGFR (BEAKER) (test 169 mL/min/1.73 sq ESTIMATED GFR IS NOT czxh=9148) m ACCURATE CREATININE CLEARANCE IN PREDICTING GLOMERULAR FILTRATION RATE. ESTIMATED GFR IS NOT APPLICABLE FOR DIALYSIS PATIENTS. CBC W/PLT COUNT & AUTO [id number] 06:05:00 Test Item Value Reference Range Comments WHITE BLOOD CELL COUNT (BEAKER) (test kmlx=850) 5.1 K/ L 3.5-10.5 RED BLOOD CELL COUNT (BEAKER) (test qlog=276) 3.60 M/ L 4.63-6.08 HEMOGLOBIN (BEAKER) (test bqqc=350) 11.7 GM/DL 13.7-17.5 HEMATOCRIT (BEAKER) (test bxde=406) 37.6 % 40.1-51.0 MEAN CORPUSCULAR VOLUME (BEAKER) (test yduu=301) 104.4 fL 79.0-92.2 MEAN CORPUSCULAR HEMOGLOBIN (BEAKER) (test 32.5 pg 25.7-32.2 gnch=792) MEAN CORPUSCULAR HEMOGLOBIN CONC (BEAKER) (test 31.1 GM/DL 32.3-36.5 rojn=245) RED CELL DISTRIBUTION WIDTH (BEAKER) (test 15.5 % 11.6-14.4 dgfo=947) PLATELET COUNT (BEAKER) (test mgzz=326) 250 K/CU MM 150-450 MEAN PLATELET VOLUME (BEAKER) (test edub=274) 10.1 fL 9.4-12.4 NUCLEATED RED BLOOD CELLS (BEAKER) (test 0 /100 WBC 0-0 nzcv=276) NEUTROPHILS RELATIVE PERCENT (BEAKER) (test 61 % ccye=828) LYMPHOCYTES RELATIVE PERCENT (BEAKER) (test 25 % pbqm=449) MONOCYTES RELATIVE PERCENT (BEAKER) (test 8 % kepw=793) EOSINOPHILS RELATIVE PERCENT (BEAKER) (test 5 % lurv=868) BASOPHILS RELATIVE PERCENT (BEAKER) (test 1 % wpzq=795) NEUTROPHILS ABSOLUTE COUNT (BEAKER) (test 3.09 K/ L 1.78-5.38 ifzt=326) LYMPHOCYTES ABSOLUTE COUNT (BEAKER) (test 1.28 K/ L 1.32-3.57 aorc=376) MONOCYTES ABSOLUTE COUNT (BEAKER) (test 0.39 K/ L 0.30-0.82 khlh=261) EOSINOPHILS ABSOLUTE COUNT (BEAKER) (test 0.25 K/ L 0.04-0.54 pmjc=190) BASOPHILS ABSOLUTE COUNT (BEAKER) (test 0.05 K/ L 0.01-0.08 kxst=137) IMMATURE GRANULOCYTES-RELATIVE PERCENT (BEAKER) 0 % 0-1 (test anbh=2740) [id number] 07:51:00 Test Item Value Reference Range Comments MAGNESIUM (BEAKER) (test ludz=267) 1.7 mg/dL 1.6-2.6 COMPREHENSIVE METABOLIC [id number] 06:19:00 Test Item Value Reference Range Comments TOTAL PROTEIN (BEAKER) 6.1 gm/dL 6.0-8.3 (test jkvy=564) ALBUMIN (BEAKER) (test 2.7 g/dL 3.5-5.0 ikod=3467) ALKALINE PHOSPHATASE 214 U/L 40-150 (BEAKER) (test tyml=625) BILIRUBIN TOTAL (BEAKER) 0.9 mg/dL 0.2-1.2 (test pemf=652) SODIUM (BEAKER) (test 139 meq/L 136-145 osrh=647) POTASSIUM (BEAKER) (test 4.2 meq/L 3.5-5.1 azih=688) CHLORIDE (BEAKER) (test 110 meq/L 98-107 ezwi=341) CO2 (BEAKER) (test 24 meq/L 22-29 msnj=484) BLOOD UREA NITROGEN < mg/dL 7-21 (BEAKER) (test huxu=541) CREATININE (BEAKER) (test 0.50 mg/dL 0.57-1.25 pohv=085) GLUCOSE RANDOM (BEAKER) 77 mg/dL 70-105 (test wouh=802) CALCIUM (BEAKER) (test 7.7 mg/dL 8.4-10.2 lrhg=412) AST (SGOT) (BEAKER) (test 96 U/L 5-34 ztzb=827) ALT (SGPT) (BEAKER) (test 37 U/L 6-55 eyfd=913) EGFR (BEAKER) (test 193 mL/min/1.73 sq ESTIMATED GFR IS NOT uojc=1964) m ACCURATE CREATININE CLEARANCE IN PREDICTING GLOMERULAR FILTRATION RATE. ESTIMATED GFR IS NOT APPLICABLE FOR DIALYSIS PATIENTS. CBC W/PLT COUNT & AUTO [id number] 05:15:00 Test Item Value Reference Range Comments WHITE BLOOD CELL COUNT (BEAKER) (test augo=189) 4.8 K/ L 3.5-10.5 RED BLOOD CELL COUNT (BEAKER) (test vrxh=066) 3.25 M/ L 4.63-6.08 HEMOGLOBIN (BEAKER) (test krer=878) 10.7 GM/DL 13.7-17.5 HEMATOCRIT (BEAKER) (test meqg=504) 34.0 % 40.1-51.0 MEAN CORPUSCULAR VOLUME (BEAKER) (test zxkc=193) 104.6 fL 79.0-92.2 MEAN CORPUSCULAR HEMOGLOBIN (BEAKER) (test 32.9 pg 25.7-32.2 yjad=521) MEAN CORPUSCULAR HEMOGLOBIN CONC (BEAKER) (test 31.5 GM/DL 32.3-36.5 itys=115) RED CELL DISTRIBUTION WIDTH (BEAKER) (test 15.5 % 11.6-14.4 fnna=546) PLATELET COUNT (BEAKER) (test nclk=166) 219 K/CU MM 150-450 MEAN PLATELET VOLUME (BEAKER) (test lkgi=350) 10.2 fL 9.4-12.4 NUCLEATED RED BLOOD CELLS (BEAKER) (test 0 /100 WBC 0-0 xotn=597) NEUTROPHILS RELATIVE PERCENT (BEAKER) (test 56 % udzz=501) LYMPHOCYTES RELATIVE PERCENT (BEAKER) (test 29 % rkpr=047) MONOCYTES RELATIVE PERCENT (BEAKER) (test 8 % wbad=896) EOSINOPHILS RELATIVE PERCENT (BEAKER) (test 5 % bgin=287) BASOPHILS RELATIVE PERCENT (BEAKER) (test 1 % zvzh=161) NEUTROPHILS ABSOLUTE COUNT (BEAKER) (test 2.69 K/ L 1.78-5.38 zgvm=597) LYMPHOCYTES ABSOLUTE COUNT (BEAKER) (test 1.40 K/ L 1.32-3.57 xkjv=122) MONOCYTES ABSOLUTE COUNT (BEAKER) (test 0.37 K/ L 0.30-0.82 ckzv=802) EOSINOPHILS ABSOLUTE COUNT (BEAKER) (test 0.25 K/ L 0.04-0.54 wqee=451) BASOPHILS ABSOLUTE COUNT (BEAKER) (test 0.05 K/ L 0.01-0.08 ekpy=805) IMMATURE GRANULOCYTES-RELATIVE PERCENT (BEAKER) 0 % 0-1 (test rpsc=1526) COMPREHENSIVE METABOLIC [id number] 09:35:00 Test Item Value Reference Range Comments TOTAL PROTEIN (BEAKER) 6.4 gm/dL 6.0-8.3 Specimen slightly (test dwxu=696) hemolyzed ALBUMIN (BEAKER) (test 2.8 g/dL 3.5-5.0 Specimen slightly cvgr=4915) hemolyzed ALKALINE PHOSPHATASE 214 U/L 40-150 (BEAKER) (test yvqb=164) BILIRUBIN TOTAL (BEAKER) 1.0 mg/dL 0.2-1.2 Specimen slightly (test ajvc=355) hemolyzed SODIUM (BEAKER) (test 136 meq/L 136-145 ohfw=101) POTASSIUM (BEAKER) (test 4.2 meq/L 3.5-5.1 Specimen slightly zrgd=454) hemolyzed CHLORIDE (BEAKER) (test 107 meq/L 98-107 esvy=468) CO2 (BEAKER) (test 23 meq/L 22-29 feiz=018) BLOOD UREA NITROGEN 2 mg/dL 7-21 (BEAKER) (test mrkk=829) CREATININE (BEAKER) (test 0.54 mg/dL 0.57-1.25 Specimen slightly bxqs=298) hemolyzed GLUCOSE RANDOM (BEAKER) 89 mg/dL 70-105 (test csbo=047) CALCIUM (BEAKER) (test 7.6 mg/dL 8.4-10.2 zjbv=738) AST (SGOT) (BEAKER) (test 101 U/L 5-34 Specimen slightly cnkq=509) hemolyzed ALT (SGPT) (BEAKER) (test 41 U/L 6-55 Specimen slightly ylxq=137) hemolyzed EGFR (BEAKER) (test 176 mL/min/1.73 sq ESTIMATED GFR IS NOT laed=9344) m ACCURATE CREATININE CLEARANCE IN PREDICTING GLOMERULAR FILTRATION RATE. ESTIMATED GFR IS NOT APPLICABLE FOR DIALYSIS PATIENTS. [id number] 09:27:00 Test Item Value Reference Range Comments MAGNESIUM (BEAKER) (test 1.3 mg/dL 1.6-2.6 Specimen slightly hemolyzed qgva=332) CBC W/PLT COUNT & AUTO [id number] 09:04:00 Test Item Value Reference Range Comments WHITE BLOOD CELL COUNT (BEAKER) (test mwmu=412) 5.7 K/ L 3.5-10.5 RED BLOOD CELL COUNT (BEAKER) (test txpj=945) 3.18 M/ L 4.63-6.08 HEMOGLOBIN (BEAKER) (test smlp=627) 10.4 GM/DL 13.7-17.5 HEMATOCRIT (BEAKER) (test joql=202) 33.1 % 40.1-51.0 MEAN CORPUSCULAR VOLUME (BEAKER) (test llyk=501) 104.1 fL 79.0-92.2 MEAN CORPUSCULAR HEMOGLOBIN (BEAKER) (test 32.7 pg 25.7-32.2 ncec=646) MEAN CORPUSCULAR HEMOGLOBIN CONC (BEAKER) (test 31.4 GM/DL 32.3-36.5 cqrq=885) RED CELL DISTRIBUTION WIDTH (BEAKER) (test 15.9 % 11.6-14.4 lsfe=220) PLATELET COUNT (BEAKER) (test gmkb=417) 223 K/CU MM 150-450 MEAN PLATELET VOLUME (BEAKER) (test fxyz=017) 10.4 fL 9.4-12.4 NUCLEATED RED BLOOD CELLS (BEAKER) (test 0 /100 WBC 0-0 zrgl=576) NEUTROPHILS RELATIVE PERCENT (BEAKER) (test 58 % ycnn=800) LYMPHOCYTES RELATIVE PERCENT (BEAKER) (test 25 % jpwt=433) MONOCYTES RELATIVE PERCENT (BEAKER) (test 11 % nrkx=683) EOSINOPHILS RELATIVE PERCENT (BEAKER) (test 5 % jxmt=454) BASOPHILS RELATIVE PERCENT (BEAKER) (test 1 % hhoo=747) NEUTROPHILS ABSOLUTE COUNT (BEAKER) (test 3.27 K/ L 1.78-5.38 capl=560) LYMPHOCYTES ABSOLUTE COUNT (BEAKER) (test 1.40 K/ L 1.32-3.57 hors=838) MONOCYTES ABSOLUTE COUNT (BEAKER) (test 0.61 K/ L 0.30-0.82 qiol=189) EOSINOPHILS ABSOLUTE COUNT (BEAKER) (test 0.30 K/ L 0.04-0.54 bcux=622) BASOPHILS ABSOLUTE COUNT (BEAKER) (test 0.07 K/ L 0.01-0.08 sopw=875) IMMATURE GRANULOCYTES-RELATIVE PERCENT (BEAKER) 0 % 0-1 (test ahsv=3228) COMPREHENSIVE METABOLIC [id number] 05:26:00 Test Item Value Reference Range Comments TOTAL PROTEIN (BEAKER) 5.7 gm/dL 6.0-8.3 (test grly=998) ALBUMIN (BEAKER) (test 2.6 g/dL 3.5-5.0 subv=0238) ALKALINE PHOSPHATASE 204 U/L 40-150 (BEAKER) (test btoc=763) BILIRUBIN TOTAL (BEAKER) 1.0 mg/dL 0.2-1.2 (test hfyg=496) SODIUM (BEAKER) (test 138 meq/L 136-145 whvx=445) POTASSIUM (BEAKER) (test 3.3 meq/L 3.5-5.1 napr=967) CHLORIDE (BEAKER) (test 106 meq/L 98-107 rrwd=192) CO2 (BEAKER) (test 24 meq/L 22-29 csou=982) BLOOD UREA NITROGEN 5 mg/dL 7-21 (BEAKER) (test pxte=216) CREATININE (BEAKER) (test 0.53 mg/dL 0.57-1.25 mufq=758) GLUCOSE RANDOM (BEAKER) 85 mg/dL 70-105 (test omse=983) CALCIUM (BEAKER) (test 7.3 mg/dL 8.4-10.2 zopz=919) AST (SGOT) (BEAKER) (test 108 U/L 5-34 molq=357) ALT (SGPT) (BEAKER) (test 46 U/L 6-55 rwwk=145) EGFR (BEAKER) (test 180 mL/min/1.73 sq ESTIMATED GFR IS NOT ihmt=5811) m ACCURATE CREATININE CLEARANCE IN PREDICTING GLOMERULAR FILTRATION RATE. ESTIMATED GFR IS NOT APPLICABLE FOR DIALYSIS PATIENTS. PROTHROMBIN [id number] 05:08:00 Test Item Value Reference Range Comments PROTIME (BEAKER) (test ccjc=863) 17.0 seconds 11.9-14.2 INR (BEAKER) (test uery=181) 1.5 <=5.9 Effective 12/11/2018: PT Reference Range ChangeNew: 11.9-14.2 Previous: 11.7- 14.7RECOMMENDED COUMADIN/WARFARIN INR THERAPY RANGESSTANDARD DOSE: 2.0-3.0 Includes: PROPHYLAXIS for venous thrombosis, systemic embolization; TREATMENT for venous thrombosis and/or pulmonary embolus.HIGH RISK: Target INR is2.5-3.5 for patients wiht mechanical heart valves.CBC W/PLT COUNT & AUTO [id number] 04:59:00 Test Item Value Reference Range Comments WHITE BLOOD CELL COUNT (BEAKER) (test bjpn=754) 6.1 K/ L 3.5-10.5 RED BLOOD CELL COUNT (BEAKER) (test hsep=222) 2.96 M/ L 4.63-6.08 HEMOGLOBIN (BEAKER) (test pcbd=868) 9.7 GM/DL 13.7-17.5 HEMATOCRIT (BEAKER) (test iobi=487) 30.5 % 40.1-51.0 MEAN CORPUSCULAR VOLUME (BEAKER) (test yzgi=310) 103.0 fL 79.0-92.2 MEAN CORPUSCULAR HEMOGLOBIN (BEAKER) (test 32.8 pg 25.7-32.2 aiuo=181) MEAN CORPUSCULAR HEMOGLOBIN CONC (BEAKER) (test 31.8 GM/DL 32.3-36.5 lgwj=338) RED CELL DISTRIBUTION WIDTH (BEAKER) (test 16.0 % 11.6-14.4 jhjj=729) PLATELET COUNT (BEAKER) (test llpp=766) 221 K/CU MM 150-450 MEAN PLATELET VOLUME (BEAKER) (test rezv=549) 10.7 fL 9.4-12.4 NUCLEATED RED BLOOD CELLS (BEAKER) (test 0 /100 WBC 0-0 uwmd=148) NEUTROPHILS RELATIVE PERCENT (BEAKER) (test 62 % llpv=915) LYMPHOCYTES RELATIVE PERCENT (BEAKER) (test 22 % obbm=795) MONOCYTES RELATIVE PERCENT (BEAKER) (test 11 % ivqs=071) EOSINOPHILS RELATIVE PERCENT (BEAKER) (test 3 % qfql=262) BASOPHILS RELATIVE PERCENT (BEAKER) (test 1 % ejjq=516) NEUTROPHILS ABSOLUTE COUNT (BEAKER) (test 3.81 K/ L 1.78-5.38 twqd=426) LYMPHOCYTES ABSOLUTE COUNT (BEAKER) (test 1.32 K/ L 1.32-3.57 okvq=835) MONOCYTES ABSOLUTE COUNT (BEAKER) (test 0.70 K/ L 0.30-0.82 wooz=612) EOSINOPHILS ABSOLUTE COUNT (BEAKER) (test 0.21 K/ L 0.04-0.54 nqpr=736) BASOPHILS ABSOLUTE COUNT (BEAKER) (test 0.07 K/ L 0.01-0.08 tcbo=037) IMMATURE GRANULOCYTES-RELATIVE PERCENT (BEAKER) 0 % 0-1 (test vfbo=3777) POCT-GLUCOSE [id number] 07:44:00 Test Item Value Reference Range Comments POC-GLUCOSE METER (BEAKER) 90 mg/dL 70-110 TESTED AT [facility] [address] (test myhx=7151) [facility] [address] COMPREHENSIVE METABOLIC [id number] 07:29:00 Test Item Value Reference Range Comments TOTAL PROTEIN (BEAKER) 5.7 gm/dL 6.0-8.3 (test ehbf=774) ALBUMIN (BEAKER) (test 2.5 g/dL 3.5-5.0 kwsp=6325) ALKALINE PHOSPHATASE 411 U/L 40-150 (BEAKER) (test czyf=792) BILIRUBIN TOTAL (BEAKER) 1.7 mg/dL 0.2-1.2 (test qawy=860) SODIUM (BEAKER) (test 139 meq/L 136-145 zicr=266) POTASSIUM (BEAKER) (test 3.1 meq/L 3.5-5.1 eoyg=582) CHLORIDE (BEAKER) (test 105 meq/L 98-107 vlkt=469) CO2 (BEAKER) (test 24 meq/L 22-29 nnqs=546) BLOOD UREA NITROGEN 3 mg/dL 7-21 (BEAKER) (test tdan=560) CREATININE (BEAKER) (test 0.61 mg/dL 0.57-1.25 piue=741) GLUCOSE RANDOM (BEAKER) 95 mg/dL 70-105 (test vhde=851) CALCIUM (BEAKER) (test 6.8 mg/dL 8.4-10.2 vjbw=162) AST (SGOT) (BEAKER) (test 173 U/L 5-34 llwj=071) ALT (SGPT) (BEAKER) (test 53 U/L 6-55 elvg=570) EGFR (BEAKER) (test 153 mL/min/1.73 sq ESTIMATED GFR IS NOT qumo=2584) m ACCURATE CREATININE CLEARANCE IN PREDICTING GLOMERULAR FILTRATION RATE. ESTIMATED GFR IS NOT APPLICABLE FOR DIALYSIS PATIENTS. [id number] 07:28:00 Test Item Value Reference Range Comments PHOSPHORUS (BEAKER) (test exqs=014) 2.4 mg/dL 2.3-4.7 [id number] 07:28:00 Test Item Value Reference Range Comments MAGNESIUM (BEAKER) (test mnjj=304) 1.8 mg/dL 1.6-2.6 HEPATIC FUNCTION [id number] 07:28:00 Test Item Value Reference Range Comments TOTAL PROTEIN (BEAKER) (test ehjh=758) 5.7 gm/dL 6.0-8.3 ALBUMIN (BEAKER) (test xpmt=0431) 2.5 g/dL 3.5-5.0 BILIRUBIN TOTAL (BEAKER) (test znbn=424) 1.7 mg/dL 0.2-1.2 BILIRUBIN DIRECT (BEAKER) (test yugp=313) 1.3 mg/dL 0.1-0.5 ALKALINE PHOSPHATASE (BEAKER) (test xdxq=660) 411 U/L 40-150 AST (SGOT) (BEAKER) (test ohfr=172) 173 U/L 5-34 ALT (SGPT) (BEAKER) (test qfzk=991) 53 U/L 6-55 [id number] 07:28:00 Test Item Value Reference Range Comments LIPASE (BEAKER) (test vdaj=831) 231 U/L 8-78 CBC W/PLT COUNT & AUTO [id number] 07:10:00 Test Item Value Reference Range Comments WHITE BLOOD CELL COUNT (BEAKER) (test qote=216) 4.5 K/ L 3.5-10.5 RED BLOOD CELL COUNT (BEAKER) (test svqb=600) 2.76 M/ L 4.63-6.08 HEMOGLOBIN (BEAKER) (test uttu=516) 9.2 GM/DL 13.7-17.5 HEMATOCRIT (BEAKER) (test oynr=451) 29.2 % 40.1-51.0 MEAN CORPUSCULAR VOLUME (BEAKER) (test funm=645) 105.8 fL 79.0-92.2 MEAN CORPUSCULAR HEMOGLOBIN (BEAKER) (test 33.3 pg 25.7-32.2 wmij=024) MEAN CORPUSCULAR HEMOGLOBIN CONC (BEAKER) (test 31.5 GM/DL 32.3-36.5 nizz=637) RED CELL DISTRIBUTION WIDTH (BEAKER) (test 21.9 % 11.6-14.4 qmev=561) PLATELET COUNT (BEAKER) (test asol=351) 150 K/CU MM 150-450 MEAN PLATELET VOLUME (BEAKER) (test lzgq=104) 10.5 fL 9.4-12.4 NUCLEATED RED BLOOD CELLS (BEAKER) (test 0 /100 WBC 0-0 doiu=576) NEUTROPHILS RELATIVE PERCENT (BEAKER) (test 65 % etdu=439) LYMPHOCYTES RELATIVE PERCENT (BEAKER) (test 17 % otrc=438) MONOCYTES RELATIVE PERCENT (BEAKER) (test 13 % oolg=533) EOSINOPHILS RELATIVE PERCENT (BEAKER) (test 2 % qvwz=014) BASOPHILS RELATIVE PERCENT (BEAKER) (test 1 % ujja=215) NEUTROPHILS ABSOLUTE COUNT (BEAKER) (test 2.91 K/ L 1.78-5.38 uaua=965) LYMPHOCYTES ABSOLUTE COUNT (BEAKER) (test 0.78 K/ L 1.32-3.57 zrjk=784) MONOCYTES ABSOLUTE COUNT (BEAKER) (test 0.59 K/ L 0.30-0.82 ahfi=684) EOSINOPHILS ABSOLUTE COUNT (BEAKER) (test 0.11 K/ L 0.04-0.54 doat=383) BASOPHILS ABSOLUTE COUNT (BEAKER) (test 0.05 K/ L 0.01-0.08 pzac=369) IMMATURE GRANULOCYTES-RELATIVE PERCENT (BEAKER) 2 % 0-1 (test rrdv=3868) COMPREHENSIVE METABOLIC [id number] 04:23:00 Test Item Value Reference Range Comments TOTAL PROTEIN (BEAKER) 5.5 gm/dL 6.0-8.3 (test dtcu=806) ALBUMIN (BEAKER) (test 2.5 g/dL 3.5-5.0 nvyx=3932) ALKALINE PHOSPHATASE 453 U/L 40-150 (BEAKER) (test wnax=088) BILIRUBIN TOTAL (BEAKER) 2.0 mg/dL 0.2-1.2 (test olds=854) SODIUM (BEAKER) (test 138 meq/L 136-145 munl=505) POTASSIUM (BEAKER) (test 3.2 meq/L 3.5-5.1 qmfb=424) CHLORIDE (BEAKER) (test 104 meq/L 98-107 crvj=411) CO2 (BEAKER) (test 26 meq/L 22-29 gybc=453) BLOOD UREA NITROGEN 3 mg/dL 7-21 (BEAKER) (test hjzp=339) CREATININE (BEAKER) (test 0.51 mg/dL 0.57-1.25 xavr=275) GLUCOSE RANDOM (BEAKER) 104 mg/dL 70-105 (test iffx=022) CALCIUM (BEAKER) (test 7.0 mg/dL 8.4-10.2 frak=664) AST (SGOT) (BEAKER) (test 166 U/L 5-34 frxb=049) ALT (SGPT) (BEAKER) (test 52 U/L 6-55 uetg=854) EGFR (BEAKER) (test 188 mL/min/1.73 sq ESTIMATED GFR IS NOT fjlg=9191) m ACCURATE CREATININE CLEARANCE IN PREDICTING GLOMERULAR FILTRATION RATE. ESTIMATED GFR IS NOT APPLICABLE FOR DIALYSIS PATIENTS. [id number] 04:21:00 Test Item Value Reference Range Comments PHOSPHORUS (BEAKER) (test cjxe=196) 2.0 mg/dL 2.3-4.7 [id number] 04:21:00 Test Item Value Reference Range Comments MAGNESIUM (BEAKER) (test zdwh=776) 1.5 mg/dL 1.6-2.6 HEPATIC FUNCTION [id number] 04:21:00 Test Item Value Reference Range Comments TOTAL PROTEIN (BEAKER) (test ceis=230) 5.5 gm/dL 6.0-8.3 ALBUMIN (BEAKER) (test xsem=8524) 2.5 g/dL 3.5-5.0 BILIRUBIN TOTAL (BEAKER) (test kbrx=056) 2.0 mg/dL 0.2-1.2 BILIRUBIN DIRECT (BEAKER) (test qzfp=368) 1.5 mg/dL 0.1-0.5 ALKALINE PHOSPHATASE (BEAKER) (test hvwc=202) 453 U/L 40-150 AST (SGOT) (BEAKER) (test qmbx=188) 166 U/L 5-34 ALT (SGPT) (BEAKER) (test yuaq=675) 52 U/L 6-55 [id number] 04:21:00 Test Item Value Reference Range Comments LIPASE (BEAKER) (test zcnp=409) 283 U/L 8-78 CBC W/PLT COUNT & AUTO [id number] 04:19:00 Test Item Value Reference Range Comments WHITE BLOOD CELL COUNT (BEAKER) (test gztk=720) 4.6 K/ L 3.5-10.5 RED BLOOD CELL COUNT (BEAKER) (test mucr=207) 2.82 M/ L 4.63-6.08 HEMOGLOBIN (BEAKER) (test qnno=937) 9.4 GM/DL 13.7-17.5 HEMATOCRIT (BEAKER) (test jema=948) 28.9 % 40.1-51.0 MEAN CORPUSCULAR VOLUME (BEAKER) (test zxzl=546) 102.5 fL 79.0-92.2 MEAN CORPUSCULAR HEMOGLOBIN (BEAKER) (test 33.3 pg 25.7-32.2 znpx=219) MEAN CORPUSCULAR HEMOGLOBIN CONC (BEAKER) (test 32.5 GM/DL 32.3-36.5 gjxr=627) RED CELL DISTRIBUTION WIDTH (BEAKER) (test 21.8 % 11.6-14.4 vhtj=324) PLATELET COUNT (BEAKER) (test hqmj=150) 141 K/CU MM 150-450 MEAN PLATELET VOLUME (BEAKER) (test mkeu=461) 9.5 fL 9.4-12.4 NUCLEATED RED BLOOD CELLS (BEAKER) (test 0 /100 WBC 0-0 psec=106) NEUTROPHILS RELATIVE PERCENT (BEAKER) (test 63 % hnxf=278) LYMPHOCYTES RELATIVE PERCENT (BEAKER) (test 22 % hpij=758) MONOCYTES RELATIVE PERCENT (BEAKER) (test 10 % trdb=941) EOSINOPHILS RELATIVE PERCENT (BEAKER) (test 3 % jeug=131) BASOPHILS RELATIVE PERCENT (BEAKER) (test 1 % nycj=847) NEUTROPHILS ABSOLUTE COUNT (BEAKER) (test 2.86 K/ L 1.78-5.38 cjbe=902) LYMPHOCYTES ABSOLUTE COUNT (BEAKER) (test 1.02 K/ L 1.32-3.57 ukea=168) MONOCYTES ABSOLUTE COUNT (BEAKER) (test 0.44 K/ L 0.30-0.82 iiun=135) EOSINOPHILS ABSOLUTE COUNT (BEAKER) (test 0.12 K/ L 0.04-0.54 iwbk=906) BASOPHILS ABSOLUTE COUNT (BEAKER) (test 0.05 K/ L 0.01-0.08 jdmo=035) IMMATURE GRANULOCYTES-RELATIVE PERCENT (BEAKER) 2 % 0-1 (test ktld=1874) HEMOGLOBIN AND [id number] 03:57:00 Test Item Value Reference Range Comments HEMOGLOBIN (BEAKER) (test mtld=040) 9.4 GM/DL 13.7-17.5 HEMATOCRIT (BEAKER) (test tnko=000) 28.9 % 40.1-51.0 HEMOGLOBIN AND [id number] 11:59:00 Test Item Value Reference Range Comments HEMOGLOBIN (BEAKER) (test gvni=868) 8.4 GM/DL 13.7-17.5 HEMATOCRIT (BEAKER) (test uwjf=052) 24.7 % 40.1-51.0 [id number] 09:15:00 Test Item Value Reference Range Comments LIPASE (BEAKER) (test noct=083) 214 U/L 8-78 HEPATIC FUNCTION [id number] 06:09:00 Test Item Value Reference Range Comments TOTAL PROTEIN (BEAKER) (test nxmn=250) 5.1 gm/dL 6.0-8.3 ALBUMIN (BEAKER) (test guvp=8567) 2.4 g/dL 3.5-5.0 BILIRUBIN TOTAL (BEAKER) (test qufs=354) 2.0 mg/dL 0.2-1.2 BILIRUBIN DIRECT (BEAKER) (test uhpv=616) 1.4 mg/dL 0.1-0.5 ALKALINE PHOSPHATASE (BEAKER) (test pzxb=340) 418 U/L 40-150 AST (SGOT) (BEAKER) (test ljdl=507) 147 U/L 5-34 ALT (SGPT) (BEAKER) (test foel=954) 51 U/L 6-55 CBC (HEMOGRAM ONLY)[id number] 05:04:00 Test Item Value Reference Range Comments WHITE BLOOD CELL COUNT (BEAKER) (test wpfo=581) 4.8 K/ L 3.5-10.5 RED BLOOD CELL COUNT (BEAKER) (test tixx=423) 2.41 M/ L 4.63-6.08 HEMOGLOBIN (BEAKER) (test yqsx=021) 8.1 GM/DL 13.7-17.5 HEMATOCRIT (BEAKER) (test ayja=570) 24.1 % 40.1-51.0 MEAN CORPUSCULAR VOLUME (BEAKER) (test glxd=389) 100.0 fL 79.0-92.2 MEAN CORPUSCULAR HEMOGLOBIN (BEAKER) (test 33.6 pg 25.7-32.2 cbje=544) MEAN CORPUSCULAR HEMOGLOBIN CONC (BEAKER) (test 33.6 GM/DL 32.3-36.5 pdnu=052) RED CELL DISTRIBUTION WIDTH (BEAKER) (test 22.4 % 11.6-14.4 dkvd=022) PLATELET COUNT (BEAKER) (test dqmo=096) 135 K/CU MM 150-450 MEAN PLATELET VOLUME (BEAKER) (test cfxg=936) 10.0 fL 9.4-12.4 NUCLEATED RED BLOOD CELLS (BEAKER) (test 1 /100 WBC 0-0 qbhh=655) BASIC METABOLIC [id number] 02:50:00 Test Item Value Reference Range Comments SODIUM (BEAKER) (test 137 meq/L 136-145 xkbc=873) POTASSIUM (BEAKER) (test 3.1 meq/L 3.5-5.1 sexx=294) CHLORIDE (BEAKER) (test 104 meq/L 98-107 vvby=714) CO2 (BEAKER) (test 24 meq/L 22-29 yhen=881) BLOOD UREA NITROGEN 3 mg/dL 7-21 (BEAKER) (test gfsa=463) CREATININE (BEAKER) (test 0.50 mg/dL 0.57-1.25 tpif=233) GLUCOSE RANDOM (BEAKER) 124 mg/dL 70-105 (test lzjk=921) CALCIUM (BEAKER) (test 6.5 mg/dL 8.4-10.2 ozcs=808) EGFR (BEAKER) (test 193 mL/min/1.73 sq m ESTIMATED GFR IS NOT bdkn=9203) ACCURATE CREATININE CLEARANCE IN PREDICTING GLOMERULAR FILTRATION RATE. ESTIMATED GFR IS NOT APPLICABLE FOR DIALYSIS PATIENTS. [id number] 02:14:00 Test Item Value Reference Range Comments PHOSPHORUS (BEAKER) (test jtff=837) 2.6 mg/dL 2.3-4.7 [id number] 02:14:00 Test Item Value Reference Range Comments MAGNESIUM (BEAKER) (test afrs=625) 1.9 mg/dL 1.6-2.6 HEMOGLOBIN AND [id number] 01:13:00 Test Item Value Reference Range Comments HEMOGLOBIN (BEAKER) (test qmuf=689) 8.1 GM/DL 13.7-17.5 HEMATOCRIT (BEAKER) (test voxk=258) 23.8 % 40.1-51.0 POCT-GLUCOSE [id number] 20:56:00 Test Item Value Reference Range Comments POC-GLUCOSE METER (BEAKER) 105 mg/dL 70-110 TESTED AT [facility] [address] (test xjia=2281) [facility] [address] COMPREHENSIVE METABOLIC [id number] 14:51:00 Test Item Value Reference Range Comments TOTAL PROTEIN (BEAKER) 6.0 gm/dL 6.0-8.3 (test tuhu=164) ALBUMIN (BEAKER) (test 2.8 g/dL 3.5-5.0 tmtc=4560) ALKALINE PHOSPHATASE 489 U/L 40-150 (BEAKER) (test nytg=431) BILIRUBIN TOTAL (BEAKER) 2.7 mg/dL 0.2-1.2 (test abni=262) SODIUM (BEAKER) (test 141 meq/L 136-145 znpv=158) POTASSIUM (BEAKER) (test 2.6 meq/L 3.5-5.1 rnlq=362) CHLORIDE (BEAKER) (test 103 meq/L 98-107 wxxx=731) CO2 (BEAKER) (test 28 meq/L 22-29 nsfb=020) BLOOD UREA NITROGEN 5 mg/dL 7-21 (BEAKER) (test gabm=703) CREATININE (BEAKER) (test 0.54 mg/dL 0.57-1.25 mhjg=263) GLUCOSE RANDOM (BEAKER) 88 mg/dL 70-105 (test eiim=399) CALCIUM (BEAKER) (test 7.1 mg/dL 8.4-10.2 pquu=577) AST (SGOT) (BEAKER) (test 168 U/L 5-34 dfhb=450) ALT (SGPT) (BEAKER) (test 61 U/L 6-55 fbuu=287) EGFR (BEAKER) (test 176 mL/min/1.73 sq ESTIMATED GFR IS NOT sjra=9557) m ACCURATE CREATININE CLEARANCE IN PREDICTING GLOMERULAR FILTRATION RATE. ESTIMATED GFR IS NOT APPLICABLE FOR DIALYSIS PATIENTS. Specimen slightly [id number] 14:51:00 Test Item Value Reference Range Comments PHOSPHORUS (BEAKER) (test ryij=381) 0.9 mg/dL 2.3-4.7 [id number] 14:41:00 Test Item Value Reference Range Comments MAGNESIUM (BEAKER) (test siwa=090) 1.3 mg/dL 1.6-2.6 [id number] 14:41:00 Test Item Value Reference Range Comments AMYLASE (BEAKER) (test puef=263) 160 U/L 25-125 Specimen slightly ictericLACTATE DEHYDROGENASE (LDH)2019-02-12 14:41:00 Test Item Value Reference Range Comments LACTATE DEHYDROGENASE (BEAKER) (test zvow=571) 572 U/L 125-220 [id number] 14:41:00 Test Item Value Reference Range Comments LIPASE (BEAKER) (test skaz=999) 562 U/L 8-78 Specimen slightly [id number] 14:39:00 Test Item Value Reference Range Comments ETHANOL (BEAKER) (test kmtl=824) < mg/dL <=10 [id number] 14:27:00 Test Item Value Reference Range Comments D-DIMER QUANTITATIVE (BEAKER) (test klnn=337) 4.23 MG/L FEU <0.50 Intended Use: The [...] of thrombosis is within 95-100% range.LACTIC ACID, [id number] 14:25:00 Test Item Value Reference Range Comments LACTATE BLOOD VENOUS (2) (BEAKER) (test 1.5 mmol/L 0.5-2.2 hjot=9462) [id number] 14:21:00 Test Item Value Reference Range Comments AMMONIA (BEAKER) (test yrvm=466) 50 mol/L 18-72 [id number] 14:17:00 Test Item Value Reference Range Comments PROTIME (BEAKER) (test lssv=666) 17.8 seconds 11.9-14.2 INR (BEAKER) (test psyq=495) 1.6 <=5.9 PARTIAL THROMBOPLASTIN TIME (BEAKER) (test 34.9 seconds 22.5-36.0 chav=104) Effective 12/11/2018: PT Reference Range ChangeNew: 11.9-14.2 Previous: 11.7- 14.7RECOMMENDED COUMADIN/WARFARIN INR THERAPY RANGESSTANDARD DOSE: 2.0-3.0 Includes: PROPHYLAXIS for venous thrombosis, systemic embolization; TREATMENT for venous thrombosis and/or pulmonary embolus.HIGH RISK: Target INR is2.5-3.5 for patients wiht mechanical heart valves.[id number] 14:17:00 Test Item Value Reference Range Comments FIBRINOGEN LEVEL (BEAKER) (test ndcn=101) 304 mg/dl 225-434 CBC (HEMOGRAM ONLY)2019-02-12 14:13:00 Test Item Value Reference Range Comments WHITE BLOOD CELL COUNT 5.0 K/ L 3.5-10.5 (BEAKER) (test akbs=359) RED BLOOD CELL COUNT (BEAKER) 2.64 M/ L 4.63-6.08 (test tjvn=589) HEMOGLOBIN (BEAKER) (test 9.0 GM/DL 13.7-17.5 lyvh=033) HEMATOCRIT (BEAKER) (test 27.0 % 40.1-51.0 wmii=368) MEAN CORPUSCULAR VOLUME 102.3 fL 79.0-92.2 (BEAKER) (test tdyj=855) MEAN CORPUSCULAR HEMOGLOBIN 34.1 pg 25.7-32.2 (BEAKER) (test ntlm=117) MEAN CORPUSCULAR HEMOGLOBIN 33.3 GM/DL 32.3-36.5 CONC (BEAKER) (test hhbg=973) RED CELL DISTRIBUTION WIDTH % 11.6-14.4 Unable to report due to (BEAKER) (test bytz=524) abnormal Platelet population distribution. PLATELET COUNT (BEAKER) (test 146 K/CU MM 150-450 gvsi=848) MEAN PLATELET VOLUME (BEAKER) 10.0 fL 9.4-12.4 (test avgg=011) NUCLEATED RED BLOOD CELLS 1 /100 WBC 0-0 (BEAKER) (test poou=717) CBC W/PLT COUNT & AUTO [id number] 05:36:00 Test Item Value Reference Range Comments WHITE BLOOD CELL COUNT (BEAKER) (test pvgm=281) 3.1 K/ L 3.5-10.5 RED BLOOD CELL COUNT (BEAKER) (test zdgh=310) 3.39 M/ L 4.63-6.08 HEMOGLOBIN (BEAKER) (test yhyy=902) 11.5 GM/DL 13.7-17.5 HEMATOCRIT (BEAKER) (test ulmj=525) 33.7 % 40.1-51.0 MEAN CORPUSCULAR VOLUME (BEAKER) (test lvlj=528) 99.4 fL 79.0-92.2 MEAN CORPUSCULAR HEMOGLOBIN (BEAKER) (test 33.9 pg 25.7-32.2 udfh=148) MEAN CORPUSCULAR HEMOGLOBIN CONC (BEAKER) (test 34.1 GM/DL 32.3-36.5 flut=105) RED CELL DISTRIBUTION WIDTH (BEAKER) (test 12.8 % 11.6-14.4 hqlo=698) PLATELET COUNT (BEAKER) (test rjro=214) 130 K/CU MM 150-450 MEAN PLATELET VOLUME (BEAKER) (test qjoj=149) 10.4 fL 9.4-12.4 NUCLEATED RED BLOOD CELLS (BEAKER) (test 0 /100 WBC 0-0 umbe=220) NEUTROPHILS RELATIVE PERCENT (BEAKER) (test 51 % pdrm=344) LYMPHOCYTES RELATIVE PERCENT (BEAKER) (test 31 % ncjo=621) MONOCYTES RELATIVE PERCENT (BEAKER) (test 12 % wmol=624) EOSINOPHILS RELATIVE PERCENT (BEAKER) (test 4 % ajqp=614) BASOPHILS RELATIVE PERCENT (BEAKER) (test 1 % wkcs=342) NEUTROPHILS ABSOLUTE COUNT (BEAKER) (test 1.61 K/ L 1.78-5.38 izbo=744) LYMPHOCYTES ABSOLUTE COUNT (BEAKER) (test 0.98 K/ L 1.32-3.57 qmve=789) MONOCYTES ABSOLUTE COUNT (BEAKER) (test 0.38 K/ L 0.30-0.82 uktl=870) EOSINOPHILS ABSOLUTE COUNT (BEAKER) (test 0.11 K/ L 0.04-0.54 raaa=677) BASOPHILS ABSOLUTE COUNT (BEAKER) (test 0.04 K/ L 0.01-0.08 witx=170) IMMATURE GRANULOCYTES-RELATIVE PERCENT (BEAKER) 1 % 0-1 (test lahp=1803) MR, ABDOMEN, [id number] 13:31:00FINAL REPORT MRCP, MRI of abdomen without [...] MDReport Verified Date/Time: 12/12/2018 13:31:00 Reading Location: [facility] B1 C013Y CT Body Reading Room COMPREHENSIVE METABOLIC [id number] 09:56:00 Test Item Value Reference Range Comments TOTAL PROTEIN (BEAKER) 5.5 gm/dL 6.0-8.3 (test igwk=474) ALBUMIN (BEAKER) (test 3.1 g/dL 3.5-5.0 hvxy=1668) ALKALINE PHOSPHATASE 116 U/L 40-150 (BEAKER) (test xoni=294) BILIRUBIN TOTAL (BEAKER) 1.9 mg/dL 0.2-1.2 (test srnq=854) SODIUM (BEAKER) (test 139 meq/L 136-145 vvdb=970) POTASSIUM (BEAKER) (test 3.0 meq/L 3.5-5.1 npyb=480) CHLORIDE (BEAKER) (test 107 meq/L 98-107 ripm=832) CO2 (BEAKER) (test 23 meq/L 22-29 fjnx=373) BLOOD UREA NITROGEN 4 mg/dL 7-21 (BEAKER) (test jyll=724) CREATININE (BEAKER) (test 0.56 mg/dL 0.57-1.25 rzaa=963) GLUCOSE RANDOM (BEAKER) 116 mg/dL 70-105 (test xhpz=692) CALCIUM (BEAKER) (test 7.4 mg/dL 8.4-10.2 jchu=207) AST (SGOT) (BEAKER) (test 297 U/L 5-34 iabf=120) ALT (SGPT) (BEAKER) (test 173 U/L 6-55 hebm=680) EGFR (BEAKER) (test 169 mL/min/1.73 sq ESTIMATED GFR IS NOT aueu=1961) m ACCURATE CREATININE CLEARANCE IN PREDICTING GLOMERULAR FILTRATION RATE. ESTIMATED GFR IS NOT APPLICABLE FOR DIALYSIS PATIENTS. CBC W/PLT COUNT & AUTO [id number] 04:42:00 Test Item Value Reference Range Comments WHITE BLOOD CELL COUNT (BEAKER) (test dngx=143) 3.1 K/ L 3.5-10.5 RED BLOOD CELL COUNT (BEAKER) (test hjsy=072) 3.09 M/ L 4.63-6.08 HEMOGLOBIN (BEAKER) (test bqfe=720) 10.7 GM/DL 13.7-17.5 HEMATOCRIT (BEAKER) (test ceeu=825) 30.5 % 40.1-51.0 MEAN CORPUSCULAR VOLUME (BEAKER) (test mbeg=539) 98.7 fL 79.0-92.2 MEAN CORPUSCULAR HEMOGLOBIN (BEAKER) (test 34.6 pg 25.7-32.2 ebbb=693) MEAN CORPUSCULAR HEMOGLOBIN CONC (BEAKER) (test 35.1 GM/DL 32.3-36.5 lggd=422) RED CELL DISTRIBUTION WIDTH (BEAKER) (test 12.4 % 11.6-14.4 sjbr=541) PLATELET COUNT (BEAKER) (test kpco=094) 99 K/CU MM 150-450 MEAN PLATELET VOLUME (BEAKER) (test csqo=383) 11.0 fL 9.4-12.4 NUCLEATED RED BLOOD CELLS (BEAKER) (test 0 /100 WBC 0-0 qpub=481) NEUTROPHILS RELATIVE PERCENT (BEAKER) (test 60 % oama=761) LYMPHOCYTES RELATIVE PERCENT (BEAKER) (test 26 % wndy=911) MONOCYTES RELATIVE PERCENT (BEAKER) (test 11 % nsmn=314) EOSINOPHILS RELATIVE PERCENT (BEAKER) (test 2 % phiv=526) BASOPHILS RELATIVE PERCENT (BEAKER) (test 1 % xpjo=229) NEUTROPHILS ABSOLUTE COUNT (BEAKER) (test 1.84 K/ L 1.78-5.38 ubqm=508) LYMPHOCYTES ABSOLUTE COUNT (BEAKER) (test 0.81 K/ L 1.32-3.57 gdfx=565) MONOCYTES ABSOLUTE COUNT (BEAKER) (test eqxq=435) 0.34 K/ L 0.30-0.82 EOSINOPHILS ABSOLUTE COUNT (BEAKER) (test 0.06 K/ L 0.04-0.54 wrnv=193) BASOPHILS ABSOLUTE COUNT (BEAKER) (test lfqy=695) 0.03 K/ L 0.01-0.08 IMMATURE GRANULOCYTES-RELATIVE PERCENT (BEAKER) 0 % 0-1 (test shim=3793) FL, ESOPH, SWALLOW FUNCTION, WITH CINE OR [id number] 12:02:00Reason for exam:->pneumomediastinum, rule out esophageal perforationFINAL [...] Verified Date/Time: 12/11/2018 12:02: 17 Reading Location: [address] Ortho Consult Reading Room BASI METABOLIC [id number] 07:31:00 Test Item Value Reference Range Comments SODIUM (BEAKER) (test 139 meq/L 136-145 mjug=245) POTASSIUM (BEAKER) (test 3.4 meq/L 3.5-5.1 Specimen slightly jhdt=930) hemolyzed CHLORIDE (BEAKER) (test 103 meq/L 98-107 mpic=400) CO2 (BEAKER) (test 20 meq/L 22-29 agsq=971) BLOOD UREA NITROGEN 18 mg/dL 7-21 (BEAKER) (test ftzq=811) CREATININE (BEAKER) (test 0.73 mg/dL 0.57-1.25 Specimen slightly zqqt=970) hemolyzed GLUCOSE RANDOM (BEAKER) 67 mg/dL 70-105 (test rvwd=210) CALCIUM (BEAKER) (test 8.6 mg/dL 8.4-10.2 cmor=271) EGFR (BEAKER) (test 125 mL/min/1.73 sq m ESTIMATED GFR IS NOT ofgj=1438) ACCURATE CREATININE CLEARANCE IN PREDICTING GLOMERULAR FILTRATION RATE. ESTIMATED GFR IS NOT APPLICABLE FOR DIALYSIS PATIENTS. CBC W/PLT COUNT & AUTO [id number] 07:12:00 Test Item Value Reference Range Comments WHITE BLOOD CELL COUNT (BEAKER) (test czgc=658) 4.6 K/ L 3.5-10.5 RED BLOOD CELL COUNT (BEAKER) (test otfw=318) 3.19 M/ L 4.63-6.08 HEMOGLOBIN (BEAKER) (test posn=216) 11.1 GM/DL 13.7-17.5 HEMATOCRIT (BEAKER) (test bugs=024) 31.0 % 40.1-51.0 MEAN CORPUSCULAR VOLUME (BEAKER) (test ccvn=740) 97.2 fL 79.0-92.2 MEAN CORPUSCULAR HEMOGLOBIN (BEAKER) (test 34.8 pg 25.7-32.2 zjse=578) MEAN CORPUSCULAR HEMOGLOBIN CONC (BEAKER) (test 35.8 GM/DL 32.3-36.5 mtuj=444) RED CELL DISTRIBUTION WIDTH (BEAKER) (test 13.0 % 11.6-14.4 jsup=347) PLATELET COUNT (BEAKER) (test hrgu=714) 103 K/CU MM 150-450 MEAN PLATELET VOLUME (BEAKER) (test mpaa=557) 11.0 fL 9.4-12.4 NUCLEATED RED BLOOD CELLS (BEAKER) (test 0 /100 WBC 0-0 pmwb=881) NEUTROPHILS RELATIVE PERCENT (BEAKER) (test 73 % megz=138) LYMPHOCYTES RELATIVE PERCENT (BEAKER) (test 16 % iwmy=904) MONOCYTES RELATIVE PERCENT (BEAKER) (test 9 % rtyq=838) EOSINOPHILS RELATIVE PERCENT (BEAKER) (test 1 % tboo=280) BASOPHILS RELATIVE PERCENT (BEAKER) (test 0 % pybm=742) NEUTROPHILS ABSOLUTE COUNT (BEAKER) (test 3.36 K/ L 1.78-5.38 rheh=874) LYMPHOCYTES ABSOLUTE COUNT (BEAKER) (test 0.75 K/ L 1.32-3.57 kpun=874) MONOCYTES ABSOLUTE COUNT (BEAKER) (test 0.41 K/ L 0.30-0.82 gwts=002) EOSINOPHILS ABSOLUTE COUNT (BEAKER) (test 0.04 K/ L 0.04-0.54 ltkr=499) BASOPHILS ABSOLUTE COUNT (BEAKER) (test 0.02 K/ L 0.01-0.08 somh=861) IMMATURE GRANULOCYTES-RELATIVE PERCENT (BEAKER) 1 % 0-1 (test poih=4611) RAD, CHEST, 1 VIEW, NON [id number] 20:13:00Reason for exam:-> pneumomediastinumShould this be performed [...] Verified Date /Time: 12/10/2018 20:13:39 Reading Location: [address] Reading Room [id number] 19:12:00 Test Item Value Reference Range Comments MAGNESIUM (BEAKER) (test 1.8 mg/dL 1.6-2.6 Specimen slightly hemolyzed ikhu=202) COMPREHENSIVE METABOLIC [id number] 19:12:00 Test Item Value Reference Range Comments TOTAL PROTEIN (BEAKER) 6.3 gm/dL 6.0-8.3 Specimen slightly (test fhth=802) hemolyzed ALBUMIN (BEAKER) (test 3.7 g/dL 3.5-5.0 Specimen slightly wybb=1172) hemolyzed ALKALINE PHOSPHATASE 129 U/L 40-150 (BEAKER) (test lwqo=357) BILIRUBIN TOTAL (BEAKER) 2.9 mg/dL 0.2-1.2 Specimen slightly (test azis=729) hemolyzed SODIUM (BEAKER) (test 137 meq/L 136-145 ohdj=091) POTASSIUM (BEAKER) (test 2.7 meq/L 3.5-5.1 Specimen slightly lrdk=023) hemolyzed CHLORIDE (BEAKER) (test 99 meq/L 98-107 fiyr=672) CO2 (BEAKER) (test 23 meq/L 22-29 bwug=216) BLOOD UREA NITROGEN 22 mg/dL 7-21 (BEAKER) (test fmjt=587) CREATININE (BEAKER) (test 1.28 mg/dL 0.57-1.25 Specimen slightly sbgw=370) hemolyzed GLUCOSE RANDOM (BEAKER) 78 mg/dL 70-105 (test omoi=680) CALCIUM (BEAKER) (test 8.5 mg/dL 8.4-10.2 qjcx=006) AST (SGOT) (BEAKER) (test 502 U/L 5-34 Specimen slightly beyn=493) hemolyzed ALT (SGPT) (BEAKER) (test 225 U/L 6-55 Specimen slightly oxjy=350) hemolyzed EGFR (BEAKER) (test 65 mL/min/1.73 sq m ESTIMATED GFR IS NOT skru=4431) ACCURATE CREATININE CLEARANCE IN PREDICTING GLOMERULAR FILTRATION RATE. ESTIMATED GFR IS NOT APPLICABLE FOR DIALYSIS PATIENTS. Specimen slightly ictericPROTHROMBIN TIME/[id number] 18:53:00 Test Item Value Reference Range Comments PROTIME (BEAKER) (test ahmn=508) 15.8 seconds 11.7-14.7 INR (BEAKER) (test onpu=082) 1.3 <=5.9 RECOMMENDED COUMADIN/WARFARIN INR THERAPY RANGESSTANDARD DOSE: 2.0 - 3.0 Includes: PROPHYLAXIS forvenous thrombosis, systemic embolization; TREATMENT for venous thrombosis and/or pulmonary embolus.HIGH RISK: Target INR is 2.5-3.5 for patients with mechanical heart valves.CBC W/PLT COUNT & AUTO [id number] 18:49:00 Test Item Value Reference Range Comments WHITE BLOOD CELL COUNT (BEAKER) (test firc=160) 6.0 K/ L 3.5-10.5 RED BLOOD CELL COUNT (BEAKER) (test ysed=764) 3.44 M/ L 4.63-6.08 HEMOGLOBIN (BEAKER) (test aksw=156) 11.6 GM/DL 13.7-17.5 HEMATOCRIT (BEAKER) (test ojsc=051) 34.1 % 40.1-51.0 MEAN CORPUSCULAR VOLUME (BEAKER) (test mfar=555) 99.1 fL 79.0-92.2 MEAN CORPUSCULAR HEMOGLOBIN (BEAKER) (test 33.7 pg 25.7-32.2 mrtq=416) MEAN CORPUSCULAR HEMOGLOBIN CONC (BEAKER) (test 34.0 GM/DL 32.3-36.5 ogqt=247) RED CELL DISTRIBUTION WIDTH (BEAKER) (test 13.1 % 11.6-14.4 osgr=678) PLATELET COUNT (BEAKER) (test uvmt=932) 109 K/CU MM 150-450 MEAN PLATELET VOLUME (BEAKER) (test xpmt=979) 11.0 fL 9.4-12.4 NUCLEATED RED BLOOD CELLS (BEAKER) (test 0 /100 WBC 0-0 ullr=565) NEUTROPHILS RELATIVE PERCENT (BEAKER) (test 81 % jcsg=425) LYMPHOCYTES RELATIVE PERCENT (BEAKER) (test 12 % ahhs=634) MONOCYTES RELATIVE PERCENT (BEAKER) (test 7 % cimp=892) EOSINOPHILS RELATIVE PERCENT (BEAKER) (test 0 % zdzv=697) BASOPHILS RELATIVE PERCENT (BEAKER) (test 0 % nqti=593) NEUTROPHILS ABSOLUTE COUNT (BEAKER) (test 4.84 K/ L 1.78-5.38 tgkm=519) LYMPHOCYTES ABSOLUTE COUNT (BEAKER) (test 0.72 K/ L 1.32-3.57 lwzg=449) MONOCYTES ABSOLUTE COUNT (BEAKER) (test 0.41 K/ L 0.30-0.82 jxdd=349) EOSINOPHILS ABSOLUTE COUNT (BEAKER) (test 0.01 K/ L 0.04-0.54 dfil=155) BASOPHILS ABSOLUTE COUNT (BEAKER) (test 0.02 K/ L 0.01-0.08 uteh=573) IMMATURE GRANULOCYTES-RELATIVE PERCENT (BEAKER) 0 % 0-1 (test yahf=8044) BLOOD [id number] 20:01:00 Test Item Value Reference Range Comments CULTURE (BEAKER) (test cudk=3998) No growth in 5 days BLOOD [id number] 20:01:00 Test Item Value Reference Range Comments CULTURE (BEAKER) (test ffab=6255) No growth in 5 days RAD, CHEST, 1 VIEW, NON [id number] 13:13:00Reason for exam:->evalute for pneumoniaShould this be performed at the bedside?->YesAddendum BeginsREPORT STATUS:A Addendum:Clinical diagnosis alcohol withdrawalsyndrome, electrolyte disturbances, elevated liver function tests, pneumonia, Signed: Marilu Sharpe MDReport Verified Date/Time: 11/01/2018 13:13: 23 Reading Location: [address] Consult Reading RoomAddendum EndsFINAL REPORT Chest [...] Impression:No active cardiopulmonary disease. Signed: Marilu Sharpe MDReport Verified Date/Time: 10/28 15:36:38 Reading Location: [facility] C013W Consult Reading Room U/S, ABDOMINAL, WITH [id number] 10:43:00Reason for exam:->evaluate for portal hypertension, cirrhosis, [...] 8 mm.Unremarkable abdominal Dopplerultrasound. Signed: Marilu Sharpe MDReport Verified Date/Time: 10/31/2018 10:43:58 Reading Location: [place] [id number] Ultrasound Reading Room COMPREHENSIVE METABOLIC [id number] 06:57:00 Test Item Value Reference Range Comments TOTAL PROTEIN (BEAKER) 6.3 gm/dL 6.0-8.3 (test emfg=363) ALBUMIN (BEAKER) (test 3.4 g/dL 3.5-5.0 olqx=2789) ALKALINE PHOSPHATASE 165 U/L 40-150 (BEAKER) (test vxiv=254) BILIRUBIN TOTAL (BEAKER) 0.6 mg/dL 0.2-1.2 (test nfwb=138) SODIUM (BEAKER) (test 140 meq/L 136-145 rumb=521) POTASSIUM (BEAKER) (test 3.6 meq/L 3.5-5.1 azml=581) CHLORIDE (BEAKER) (test 102 meq/L 98-107 ilod=460) CO2 (BEAKER) (test 29 meq/L 22-29 bplq=356) BLOOD UREA NITROGEN 3 mg/dL 7-21 (BEAKER) (test gbls=000) CREATININE (BEAKER) (test 0.55 mg/dL 0.57-1.25 oktx=813) GLUCOSE RANDOM (BEAKER) 89 mg/dL 70-105 (test bvtp=717) CALCIUM (BEAKER) (test 9.2 mg/dL 8.4-10.2 hgal=348) AST (SGOT) (BEAKER) (test 184 U/L 5-34 anhq=673) ALT (SGPT) (BEAKER) (test 156 U/L 6-55 tvdz=172) EGFR (BEAKER) (test 173 mL/min/1.73 sq ESTIMATED GFR IS NOT tywh=2435) m ACCURATE CREATININE CLEARANCE IN PREDICTING GLOMERULAR FILTRATION RATE. ESTIMATED GFR IS NOT APPLICABLE FOR DIALYSIS PATIENTS. HEMOGLOBIN [id number] 09:30:00 Test Item Value Reference Range Comments HEMOGLOBIN A1C (BEAKER) (test uths=609) 4.9 % 4.3-6.1 COMPREHENSIVE METABOLIC [id number] 05:17:00 Test Item Value Reference Range Comments TOTAL PROTEIN (BEAKER) 6.5 gm/dL 6.0-8.3 (test faae=288) ALBUMIN (BEAKER) (test 3.6 g/dL 3.5-5.0 ixcc=7713) ALKALINE PHOSPHATASE 170 U/L 40-150 (BEAKER) (test edun=523) BILIRUBIN TOTAL (BEAKER) 0.9 mg/dL 0.2-1.2 (test xhdh=212) SODIUM (BEAKER) (test 141 meq/L 136-145 oxbm=117) POTASSIUM (BEAKER) (test 3.5 meq/L 3.5-5.1 ywab=130) CHLORIDE (BEAKER) (test 104 meq/L 98-107 hzwv=611) CO2 (BEAKER) (test 26 meq/L 22-29 jgol=289) BLOOD UREA NITROGEN 4 mg/dL 7-21 (BEAKER) (test vghn=722) CREATININE (BEAKER) (test 0.55 mg/dL 0.57-1.25 dyet=910) GLUCOSE RANDOM (BEAKER) 89 mg/dL 70-105 (test ikzd=886) CALCIUM (BEAKER) (test 9.3 mg/dL 8.4-10.2 jakb=737) AST (SGOT) (BEAKER) (test 167 U/L 5-34 wjet=224) ALT (SGPT) (BEAKER) (test 156 U/L 6-55 bggf=717) EGFR (BEAKER) (test 173 mL/min/1.73 sq ESTIMATED GFR IS NOT xdrh=6572) m ACCURATE CREATININE CLEARANCE IN PREDICTING GLOMERULAR FILTRATION RATE. ESTIMATED GFR IS NOT APPLICABLE FOR DIALYSIS PATIENTS. CBC W/PLT COUNT & AUTO [id number] 04:53:00 Test Item Value Reference Range Comments WHITE BLOOD CELL COUNT (BEAKER) (test aszv=031) 3.4 K/ L 3.5-10.5 RED BLOOD CELL COUNT (BEAKER) (test rops=945) 3.45 M/ L 4.63-6.08 HEMOGLOBIN (BEAKER) (test tulj=000) 11.8 GM/DL 13.7-17.5 HEMATOCRIT (BEAKER) (test gqhx=415) 34.4 % 40.1-51.0 MEAN CORPUSCULAR VOLUME (BEAKER) (test rqzm=551) 99.7 fL 79.0-92.2 MEAN CORPUSCULAR HEMOGLOBIN (BEAKER) (test 34.2 pg 25.7-32.2 fjdd=475) MEAN CORPUSCULAR HEMOGLOBIN CONC (BEAKER) (test 34.3 GM/DL 32.3-36.5 zfhi=857) RED CELL DISTRIBUTION WIDTH (BEAKER) (test 12.2 % 11.6-14.4 edsg=602) PLATELET COUNT (BEAKER) (test hmcs=904) 175 K/CU MM 150-450 MEAN PLATELET VOLUME (BEAKER) (test ahkc=332) 10.3 fL 9.4-12.4 NUCLEATED RED BLOOD CELLS (BEAKER) (test 0 /100 WBC 0-0 ozgr=708) NEUTROPHILS RELATIVE PERCENT (BEAKER) (test 55 % pdnt=809) LYMPHOCYTES RELATIVE PERCENT (BEAKER) (test 30 % acxx=811) MONOCYTES RELATIVE PERCENT (BEAKER) (test 11 % cpca=701) EOSINOPHILS RELATIVE PERCENT (BEAKER) (test 3 % gsns=099) BASOPHILS RELATIVE PERCENT (BEAKER) (test 1 % qiyq=711) NEUTROPHILS ABSOLUTE COUNT (BEAKER) (test 1.89 K/ L 1.78-5.38 yalh=176) LYMPHOCYTES ABSOLUTE COUNT (BEAKER) (test 1.03 K/ L 1.32-3.57 spdv=091) MONOCYTES ABSOLUTE COUNT (BEAKER) (test 0.39 K/ L 0.30-0.82 kwtf=516) EOSINOPHILS ABSOLUTE COUNT (BEAKER) (test 0.09 K/ L 0.04-0.54 lhet=274) BASOPHILS ABSOLUTE COUNT (BEAKER) (test 0.03 K/ L 0.01-0.08 pdez=602) IMMATURE GRANULOCYTES-RELATIVE PERCENT (BEAKER) 0 % 0-1 (test hgrx=3788) LIPID [id number] 17:30:00 Test Item Value Reference Range Comments TRIGLYCERIDES (BEAKER) (test brra=569) 90 mg/dL CHOLESTEROL (BEAKER) (test fojf=037) 140 mg/dL HDL CHOLESTEROL (BEAKER) (test btji=306) 37 mg/dL LDL CHOLESTEROL CALCULATED (BEAKER) (test 85 mg/dL jdze=018) Triglyceride Reference Range: Low Risk <150 Borderline 150- 199 High Risk 200-499 Very High Risk >=500Cholesterol Reference Range: Low Risk <200 Borderline 200-239 High Risk > 240HDL Cholesterol Reference Range: Low Risk >=60 High Risk <40LDL Cholesterol Reference Range: Optimal <100 Near Optimal 100-129 Borderline 130-159 High 160-189 Very High >=190HEPATITIS C PCR, [id number] 14:57:00 Test Item Value Reference Range Comments HCV RESULT COMPONENT (BEAKER) HCV RNA not detected HCV RNA not detected (test raxb=6601) This test uses a Real-Time Polymerase Chain Reaction (RT-PCR) methodology and was performed using [employer] Ampliprep/MARIANO TaqMan HCV test kit version 2.0 ( [employer]).Reportable range for this assay is 15 - 100,000, 000 IU per mL (1.18 - 8.00 Log IU/mL).RAD, ABDOMEN/KUB, 1 VIEW [id number] 14: 17:00Reason for exam:->abd distensionFINAL REPORT TECHNIQUE: Supine radiographs of the abdomen dated 10/29/2018. HISTORY: Abdominal distention. COMPARISON: None IMPRESSION:No air-filled, dilated loops of bowel to suggest obstruction. No free intraperitoneal air. No abnormal soft tissue mass or calcification. Signed:Nancy Concepcioneport Verified Date/ Time: 10/29/2018 14:17:17 Reading Location: [facility] Radiology Reading Room [id number] 13:28:00 Test Item Value Reference Range Comments RPR SCREEN (BEAKER) (test nfea=690) Nonreactive Nonreactive [id number] 05:12:00 Test Item Value Reference Range Comments PHOSPHORUS (BEAKER) (test afrj=497) 2.5 mg/dL 2.3-4.7 COMPREHENSIVE METABOLIC [id number] 05:12:00 Test Item Value Reference Range Comments TOTAL PROTEIN (BEAKER) 6.9 gm/dL 6.0-8.3 (test vpln=604) ALBUMIN (BEAKER) (test 3.9 g/dL 3.5-5.0 gfvb=9385) ALKALINE PHOSPHATASE 200 U/L 40-150 (BEAKER) (test bycn=820) BILIRUBIN TOTAL (BEAKER) 1.2 mg/dL 0.2-1.2 (test xthu=407) SODIUM (BEAKER) (test 137 meq/L 136-145 mims=180) POTASSIUM (BEAKER) (test 3.3 meq/L 3.5-5.1 csbw=185) CHLORIDE (BEAKER) (test 97 meq/L 98-107 vmot=401) CO2 (BEAKER) (test 27 meq/L 22-29 ntwe=821) BLOOD UREA NITROGEN 3 mg/dL 7-21 (BEAKER) (test iheq=277) CREATININE (BEAKER) (test 0.57 mg/dL 0.57-1.25 ipaz=966) GLUCOSE RANDOM (BEAKER) 108 mg/dL 70-105 (test izun=646) CALCIUM (BEAKER) (test 9.4 mg/dL 8.4-10.2 qrcn=681) AST (SGOT) (BEAKER) (test 263 U/L 5-34 nlsr=719) ALT (SGPT) (BEAKER) (test 215 U/L 6-55 njzh=402) EGFR (BEAKER) (test 166 mL/min/1.73 sq ESTIMATED GFR IS NOT deqe=7878) m ACCURATE CREATININE CLEARANCE IN PREDICTING GLOMERULAR FILTRATION RATE. ESTIMATED GFR IS NOT APPLICABLE FOR DIALYSIS PATIENTS. PROTHROMBIN [id number] 04:53:00 Test Item Value Reference Range Comments PROTIME (BEAKER) (test llwn=521) 16.0 seconds 11.7-14.7 INR (BEAKER) (test yfot=698) 1.3 <=5.9 RECOMMENDED COUMADIN/WARFARIN INR THERAPY RANGESSTANDARD DOSE: 2.0 - 3.0 Includes: PROPHYLAXIS forvenous thrombosis, systemic embolization; TREATMENT for venous thrombosis and/or pulmonary embolus.HIGH RISK: Target INR is 2.5-3.5 for patients with mechanical heart valves.URINALYSIS W/ REFLEX URINE [id number] 18:43:00 Test Item Value Reference Range Comments COLOR (BEAKER) (test xcts=052) Yellow CLARITY (BEAKER) (test dqhx=460) Clear SPECIFIC GRAVITY UA (BEAKER) (test tnxw=925) 1.007 1.001-1.035 PH UA (BEAKER) (test bkge=787) 7.5 5.0-8.0 PROTEIN UA (BEAKER) (test ppdb=235) 20 mg/dL Negative GLUCOSE UA (BEAKER) (test utdg=085) Negative Negative KETONES UA (BEAKER) (test ipfp=964) 20 mg/dL Negative BILIRUBIN UA (BEAKER) (test ztaq=696) Negative Negative BLOOD UA (BEAKER) (test bzef=718) Trace Negative NITRITE UA (BEAKER) (test ezls=894) Negative Negative LEUKOCYTE ESTERASE UA (BEAKER) (test myol=445) Negative Negative UROBILINOGEN UA (BEAKER) (test nouu=519) 2.0 mg/dL 0.2-1.0 RBC UA (BEAKER) (test ocrf=956) 3 /HPF WBC UA (BEAKER) (test bmbk=701) < /HPF MUCUS (BEAKER) (test suio=1096) Rare SOURCE(BEAKER) (test rggp=1226) VITAMIN B12 AND [id number] 15:08:00 Test Item Value Reference Range Comments VITAMIN B12 (BEAKER) (test wfcw=288) 1678 pg/mL 213-816 FOLATE (BEAKER) (test cuox=657) 19.4 ng/mL >=7.0 [id number] 14:48:00 Test Item Value Reference Range Comments FERRITIN (BEAKER) (test mbaz=915) 1698 ng/mL 5-275 IRON, TIBC, % SAT. (WITHOUT FERRITIN)[id number] 13:26:00 Test Item Value Reference Range Comments IRON (BEAKER) (test gbdg=731) 44.0 ug/dL 40.0-160.0 TOTAL IRON BINDING CAPACITY (BEAKER) (test 186 ug/dL 250-450 ukri=725) IRON % SATURATION (2) (BEAKER) (test jlry=3081) 24 % 20-55 HEPATITIS B SURFACE [id number] 13:26:00 Test Item Value Reference Range Comments HEPATITIS B SURFACE ANTIGEN (2) (BEAKER) (test Nonreactive Nonreactive bqeh=6476) HEPATITIS C [id number] 13:26:00 Test Item Value Reference Range Comments HEPATITIS C ANTIBODY (BEAKER) (test qcgb=867) Nonreactive Nonreactive HIV-1 ANTIGEN WITH HIV-1/2 [id number] 13:26:00 Test Item Value Reference Range Comments HIV-1 ANTIGEN WITH HIV 1\T\2 ANTIBODY (2) Nonreactive Nonreactive (BEAKER) (test sukd=0295) HEPATITIS B SURFACE [id number] 13:19:00 Test Item Value Reference Range Comments HEPATITIS B SURFACE ANTIBODY (BEAKER) (test 34.5 mIU/mL <8.0 otym=216) HEPATITIS A ANTIBODY, [id number] 13:19:00 Test Item Value Reference Range Comments HEPATITIS A IGM ANTIBODY (BEAKER) (test Nonreactive Nonreactive xuuc=102) HEPATITIS B CORE ANTIBODY, [id number] 13:19:00 Test Item Value Reference Range Comments HEPATITIS B CORE TOTAL ANTIBODY (BEAKER) (test Nonreactive Nonreactive lfwf=897) HEPATITIS A ANTIBODY, [id number] 13:19:00 Test Item Value Reference Range Comments HEPATITIS A IGG ANTIBODY (BEAKER) (test Nonreactive Nonreactive ckvn=4734) PROTHROMBIN [id number] 13:00:00 Test Item Value Reference Range Comments PROTIME (BEAKER) (test bxmv=274) 15.5 seconds 11.7-14.7 INR (BEAKER) (test mmgb=598) 1.2 <=5.9 RECOMMENDED COUMADIN/WARFARIN INR THERAPY RANGESSTANDARD DOSE: 2.0 - 3.0 Includes: PROPHYLAXIS forvenous thrombosis, systemic embolization; TREATMENT for venous thrombosis and/or pulmonary embolus.HIGH RISK: Target INR is 2.5-3.5 for patients with mechanical heart valves.[id number] 03:31:00 Test Item Value Reference Range Comments PHOSPHORUS (BEAKER) (test hekg=587) 3.5 mg/dL 2.3-4.7 [id number] 03:31:00 Test Item Value Reference Range Comments MAGNESIUM (BEAKER) (test wcae=922) 1.5 mg/dL 1.6-2.6 COMPREHENSIVE METABOLIC [id number] 03:31:00 Test Item Value Reference Range Comments TOTAL PROTEIN (BEAKER) 6.5 gm/dL 6.0-8.3 (test iobm=818) ALBUMIN (BEAKER) (test 3.7 g/dL 3.5-5.0 nzcm=0066) ALKALINE PHOSPHATASE 200 U/L 40-150 (BEAKER) (test lwpd=398) BILIRUBIN TOTAL (BEAKER) 0.8 mg/dL 0.2-1.2 (test swlb=490) SODIUM (BEAKER) (test 142 meq/L 136-145 tmoi=586) POTASSIUM (BEAKER) (test 3.1 meq/L 3.5-5.1 txhb=885) CHLORIDE (BEAKER) (test 103 meq/L 98-107 nhrs=015) CO2 (BEAKER) (test 24 meq/L 22-29 mmxr=011) BLOOD UREA NITROGEN 4 mg/dL 7-21 (BEAKER) (test qwht=838) CREATININE (BEAKER) (test 0.55 mg/dL 0.57-1.25 odpt=829) GLUCOSE RANDOM (BEAKER) 100 mg/dL 70-105 (test lgkv=433) CALCIUM (BEAKER) (test 8.5 mg/dL 8.4-10.2 ttan=054) AST (SGOT) (BEAKER) (test 318 U/L 5-34 fics=140) ALT (SGPT) (BEAKER) (test 244 U/L 6-55 xmwu=630) EGFR (BEAKER) (test 173 mL/min/1.73 sq ESTIMATED GFR IS NOT fnmg=4588) m ACCURATE CREATININE CLEARANCE IN PREDICTING GLOMERULAR FILTRATION RATE. ESTIMATED GFR IS NOT APPLICABLE FOR DIALYSIS PATIENTS. CBC W/PLT COUNT & AUTO [id number] 03:03:00 Test Item Value Reference Range Comments WHITE BLOOD CELL COUNT (BEAKER) (test fkxx=137) 4.2 K/ L 3.5-10.5 RED BLOOD CELL COUNT (BEAKER) (test izjh=288) 3.61 M/ L 4.63-6.08 HEMOGLOBIN (BEAKER) (test eoqi=947) 12.3 GM/DL 13.7-17.5 HEMATOCRIT (BEAKER) (test gpzc=893) 35.9 % 40.1-51.0 MEAN CORPUSCULAR VOLUME (BEAKER) (test crqm=096) 99.4 fL 79.0-92.2 MEAN CORPUSCULAR HEMOGLOBIN (BEAKER) (test 34.1 pg 25.7-32.2 updx=622) MEAN CORPUSCULAR HEMOGLOBIN CONC (BEAKER) (test 34.3 GM/DL 32.3-36.5 rwvd=754) RED CELL DISTRIBUTION WIDTH (BEAKER) (test 12.3 % 11.6-14.4 mjdn=571) PLATELET COUNT (BEAKER) (test hese=482) 122 K/CU MM 150-450 MEAN PLATELET VOLUME (BEAKER) (test tamv=808) 9.8 fL 9.4-12.4 NUCLEATED RED BLOOD CELLS (BEAKER) (test 0 /100 WBC 0-0 vauk=625) NEUTROPHILS RELATIVE PERCENT (BEAKER) (test 70 % sisx=389) LYMPHOCYTES RELATIVE PERCENT (BEAKER) (test 17 % xefj=852) MONOCYTES RELATIVE PERCENT (BEAKER) (test 11 % jwjk=579) EOSINOPHILS RELATIVE PERCENT (BEAKER) (test 1 % hhkm=388) BASOPHILS RELATIVE PERCENT (BEAKER) (test 1 % jggq=514) NEUTROPHILS ABSOLUTE COUNT (BEAKER) (test 2.94 K/ L 1.78-5.38 kooo=136) LYMPHOCYTES ABSOLUTE COUNT (BEAKER) (test 0.73 K/ L 1.32-3.57 yrjs=500) MONOCYTES ABSOLUTE COUNT (BEAKER) (test 0.45 K/ L 0.30-0.82 rfdw=680) EOSINOPHILS ABSOLUTE COUNT (BEAKER) (test 0.04 K/ L 0.04-0.54 gfxn=641) BASOPHILS ABSOLUTE COUNT (BEAKER) (test 0.02 K/ L 0.01-0.08 vzuu=036) IMMATURE GRANULOCYTES-RELATIVE PERCENT (BEAKER) 1 % 0-1 (test kkob=0287) POCT-GLUCOSE [id number] 12:15:00 Test Item Value Reference Range Comments POC-GLUCOSE METER (BEAKER) 99 mg/dL 70-110 TESTED AT [facility] [address] (test wcwg=5472) [facility] [address] [id number] 06:15:00 Test Item Value Reference Range Comments MAGNESIUM (BEAKER) (test akts=811) 1.8 mg/dL 1.6-2.6 COMPREHENSIVE METABOLIC [id number] 06:15:00 Test Item Value Reference Range Comments TOTAL PROTEIN (BEAKER) 6.6 gm/dL 6.0-8.3 (test fgkr=960) ALBUMIN (BEAKER) (test 3.6 g/dL 3.5-5.0 smwz=4235) ALKALINE PHOSPHATASE 149 U/L 40-150 (BEAKER) (test zmay=661) BILIRUBIN TOTAL (BEAKER) 0.8 mg/dL 0.2-1.2 (test qugr=875) SODIUM (BEAKER) (test 135 meq/L 136-145 nzqq=845) POTASSIUM (BEAKER) (test 3.6 meq/L 3.5-5.1 bdpf=737) CHLORIDE (BEAKER) (test 98 meq/L 98-107 peny=179) CO2 (BEAKER) (test 26 meq/L 22-29 lcnk=777) BLOOD UREA NITROGEN 8 mg/dL 7-21 (BEAKER) (test selm=570) CREATININE (BEAKER) (test 0.57 mg/dL 0.57-1.25 sryg=865) GLUCOSE RANDOM (BEAKER) 100 mg/dL 70-105 (test pkvr=656) CALCIUM (BEAKER) (test 9.5 mg/dL 8.4-10.2 ptgi=009) AST (SGOT) (BEAKER) (test 155 U/L 5-34 qpbl=510) ALT (SGPT) (BEAKER) (test 151 U/L 6-55 stkz=870) EGFR (BEAKER) (test 166 mL/min/1.73 sq ESTIMATED GFR IS NOT xshx=1975) m ACCURATE CREATININE CLEARANCE IN PREDICTING GLOMERULAR FILTRATION RATE. ESTIMATED GFR IS NOT APPLICABLE FOR DIALYSIS PATIENTS. CBC W/PLT COUNT & AUTO [id number] 05:30:00 Test Item Value Reference Range Comments WHITE BLOOD CELL COUNT (BEAKER) (test lxjf=578) 5.1 K/ L 3.5-10.5 RED BLOOD CELL COUNT (BEAKER) (test gead=291) 3.81 M/ L 4.63-6.08 HEMOGLOBIN (BEAKER) (test qant=638) 13.1 GM/DL 13.7-17.5 HEMATOCRIT (BEAKER) (test eqmr=672) 37.6 % 40.1-51.0 MEAN CORPUSCULAR VOLUME (BEAKER) (test xknn=923) 98.7 fL 79.0-92.2 MEAN CORPUSCULAR HEMOGLOBIN (BEAKER) (test 34.4 pg 25.7-32.2 aody=695) MEAN CORPUSCULAR HEMOGLOBIN CONC (BEAKER) (test 34.8 GM/DL 32.3-36.5 hsad=055) RED CELL DISTRIBUTION WIDTH (BEAKER) (test 11.5 % 11.6-14.4 vwpj=964) PLATELET COUNT (BEAKER) (test qqqv=818) 152 K/CU MM 150-450 MEAN PLATELET VOLUME (BEAKER) (test lxha=797) 10.2 fL 9.4-12.4 NUCLEATED RED BLOOD CELLS (BEAKER) (test 0 /100 WBC 0-0 bpzo=243) NEUTROPHILS RELATIVE PERCENT (BEAKER) (test 71 % dwjv=798) LYMPHOCYTES RELATIVE PERCENT (BEAKER) (test 14 % yrsr=581) MONOCYTES RELATIVE PERCENT (BEAKER) (test 11 % fxqq=114) EOSINOPHILS RELATIVE PERCENT (BEAKER) (test 2 % fmoh=048) BASOPHILS RELATIVE PERCENT (BEAKER) (test 1 % xoih=182) NEUTROPHILS ABSOLUTE COUNT (BEAKER) (test 3.66 K/ L 1.78-5.38 jgoc=395) LYMPHOCYTES ABSOLUTE COUNT (BEAKER) (test 0.71 K/ L 1.32-3.57 guqw=101) MONOCYTES ABSOLUTE COUNT (BEAKER) (test 0.58 K/ L 0.30-0.82 bchp=486) EOSINOPHILS ABSOLUTE COUNT (BEAKER) (test 0.10 K/ L 0.04-0.54 etul=330) BASOPHILS ABSOLUTE COUNT (BEAKER) (test 0.04 K/ L 0.01-0.08 irxt=770) IMMATURE GRANULOCYTES-RELATIVE PERCENT (BEAKER) 1 % 0-1 (test zhyn=6722) POCT-GLUCOSE [id number] 11:54:00 Test Item Value Reference Range Comments POC-GLUCOSE METER (BEAKER) 83 mg/dL 70-110 TESTED AT [facility] [address] (test czky=7509) [facility] [address] [id number] 05:54:00 Test Item Value Reference Range Comments PHOSPHORUS (BEAKER) (test dntk=632) 2.3 mg/dL 2.3-4.7 [id number] 05:54:00 Test Item Value Reference Range Comments MAGNESIUM (BEAKER) (test nzvo=574) 2.0 mg/dL 1.6-2.6 COMPREHENSIVE METABOLIC [id number] 05:54:00 Test Item Value Reference Range Comments TOTAL PROTEIN (BEAKER) 6.0 gm/dL 6.0-8.3 (test kvpt=644) ALBUMIN (BEAKER) (test 3.2 g/dL 3.5-5.0 vxlh=8245) ALKALINE PHOSPHATASE 134 U/L 40-150 (BEAKER) (test kvsy=279) BILIRUBIN TOTAL (BEAKER) 1.1 mg/dL 0.2-1.2 (test wuaw=797) SODIUM (BEAKER) (test 134 meq/L 136-145 rlfw=121) POTASSIUM (BEAKER) (test 3.6 meq/L 3.5-5.1 skct=408) CHLORIDE (BEAKER) (test 100 meq/L 98-107 xknr=086) CO2 (BEAKER) (test 26 meq/L 22-29 znka=556) BLOOD UREA NITROGEN 4 mg/dL 7-21 (BEAKER) (test oaox=445) CREATININE (BEAKER) (test 0.54 mg/dL 0.57-1.25 iats=711) GLUCOSE RANDOM (BEAKER) 141 mg/dL 70-105 (test qsxs=434) CALCIUM (BEAKER) (test 8.8 mg/dL 8.4-10.2 ihcu=047) AST (SGOT) (BEAKER) (test 183 U/L 5-34 deob=136) ALT (SGPT) (BEAKER) (test 149 U/L 6-55 byzl=748) EGFR (BEAKER) (test 176 mL/min/1.73 sq ESTIMATED GFR IS NOT oosq=9540) m ACCURATE CREATININE CLEARANCE IN PREDICTING GLOMERULAR FILTRATION RATE. ESTIMATED GFR IS NOT APPLICABLE FOR DIALYSIS PATIENTS. LACTIC ACID, [id number] 05:35:00 Test Item Value Reference Range Comments LACTATE BLOOD VENOUS (2) (BEAKER) (test 1.0 mmol/L 0.5-2.2 xiek=5795) CBC W/PLT COUNT & AUTO [id number] 05:23:00 Test Item Value Reference Range Comments WHITE BLOOD CELL COUNT (BEAKER) (test fngh=487) 5.0 K/ L 3.5-10.5 RED BLOOD CELL COUNT (BEAKER) (test gahr=615) 3.88 M/ L 4.63-6.08 HEMOGLOBIN (BEAKER) (test bkil=099) 13.0 GM/DL 13.7-17.5 HEMATOCRIT (BEAKER) (test clfv=902) 38.5 % 40.1-51.0 MEAN CORPUSCULAR VOLUME (BEAKER) (test dvbb=008) 99.2 fL 79.0-92.2 MEAN CORPUSCULAR HEMOGLOBIN (BEAKER) (test 33.5 pg 25.7-32.2 duno=633) MEAN CORPUSCULAR HEMOGLOBIN CONC (BEAKER) (test 33.8 GM/DL 32.3-36.5 yplt=114) RED CELL DISTRIBUTION WIDTH (BEAKER) (test 11.6 % 11.6-14.4 xzpw=642) PLATELET COUNT (BEAKER) (test ojsf=799) 113 K/CU MM 150-450 MEAN PLATELET VOLUME (BEAKER) (test idfr=609) 10.7 fL 9.4-12.4 NUCLEATED RED BLOOD CELLS (BEAKER) (test 0 /100 WBC 0-0 gfcf=896) NEUTROPHILS RELATIVE PERCENT (BEAKER) (test 72 % sgpq=974) LYMPHOCYTES RELATIVE PERCENT (BEAKER) (test 15 % qxvi=701) MONOCYTES RELATIVE PERCENT (BEAKER) (test 10 % ptzq=204) EOSINOPHILS RELATIVE PERCENT (BEAKER) (test 2 % rfzl=232) BASOPHILS RELATIVE PERCENT (BEAKER) (test 1 % vfzx=271) NEUTROPHILS ABSOLUTE COUNT (BEAKER) (test 3.56 K/ L 1.78-5.38 yrtq=594) LYMPHOCYTES ABSOLUTE COUNT (BEAKER) (test 0.76 K/ L 1.32-3.57 tbzl=856) MONOCYTES ABSOLUTE COUNT (BEAKER) (test 0.49 K/ L 0.30-0.82 rpky=881) EOSINOPHILS ABSOLUTE COUNT (BEAKER) (test 0.10 K/ L 0.04-0.54 bwbf=978) BASOPHILS ABSOLUTE COUNT (BEAKER) (test 0.04 K/ L 0.01-0.08 mtsf=059) IMMATURE GRANULOCYTES-RELATIVE PERCENT (BEAKER) 1 % 0-1 (test txzv=6266) POCT-GLUCOSE [id number] 18:44:00 Test Item Value Reference Range Comments POC-GLUCOSE METER (BEAKER) 100 mg/dL 70-110 TESTED AT [facility] [address] (test xkaf=4006) [facility] [address] [id number] 17:58:00 Test Item Value Reference Range Comments PHOSPHORUS (BEAKER) (test cmvy=425) 2.3 mg/dL 2.3-4.7 [id number] 17:58:00 Test Item Value Reference Range Comments MAGNESIUM (BEAKER) (test dkyu=848) 1.8 mg/dL 1.6-2.6 BASIC METABOLIC [id number] 17:58:00 Test Item Value Reference Range Comments SODIUM (BEAKER) (test 137 meq/L 136-145 cpnd=107) POTASSIUM (BEAKER) (test 3.6 meq/L 3.5-5.1 pnfq=817) CHLORIDE (BEAKER) (test 102 meq/L 98-107 qnon=043) CO2 (BEAKER) (test 26 meq/L 22-29 ugam=936) BLOOD UREA NITROGEN 4 mg/dL 7-21 (BEAKER) (test bint=472) CREATININE (BEAKER) (test 0.54 mg/dL 0.57-1.25 fkqs=800) GLUCOSE RANDOM (BEAKER) 123 mg/dL 70-105 (test rkdl=944) CALCIUM (BEAKER) (test 8.7 mg/dL 8.4-10.2 uowt=716) EGFR (BEAKER) (test 177 mL/min/1.73 sq m ESTIMATED GFR IS NOT owcy=4714) ACCURATE CREATININE CLEARANCE IN PREDICTING GLOMERULAR FILTRATION RATE. ESTIMATED GFR IS NOT APPLICABLE FOR DIALYSIS PATIENTS. [id number] 16:55:00 Test Item Value Reference Range Comments MAGNESIUM (BEAKER) (test 1.6 mg/dL 1.6-2.6 Specimen slightly hemolyzed zfpp=830) [id number] 16:55:00 Test Item Value Reference Range Comments PHOSPHORUS (BEAKER) (test 2.3 mg/dL 2.3-4.7 Specimen slightly hemolyzed usom=653) BASIC METABOLIC [id number] 16:55:00 Test Item Value Reference Range Comments SODIUM (BEAKER) (test 138 meq/L 136-145 cksn=633) POTASSIUM (BEAKER) (test 3.7 meq/L 3.5-5.1 Specimen slightly qvvb=232) hemolyzed CHLORIDE (BEAKER) (test 105 meq/L 98-107 csqi=626) CO2 (BEAKER) (test 23 meq/L 22-29 yrjh=317) BLOOD UREA NITROGEN 4 mg/dL 7-21 (BEAKER) (test xanx=814) CREATININE (BEAKER) (test 0.51 mg/dL 0.57-1.25 Specimen slightly muus=802) hemolyzed GLUCOSE RANDOM (BEAKER) 99 mg/dL 70-105 (test ouqk=706) CALCIUM (BEAKER) (test 8.0 mg/dL 8.4-10.2 huvz=464) EGFR (BEAKER) (test 190 mL/min/1.73 sq m ESTIMATED GFR IS NOT wnyv=2514) ACCURATE CREATININE CLEARANCE IN PREDICTING GLOMERULAR FILTRATION RATE. ESTIMATED GFR IS NOT APPLICABLE FOR DIALYSIS PATIENTS. POCT-GLUCOSE [id number] 12:41:00 Test Item Value Reference Range Comments POC-GLUCOSE METER (BEAKER) 100 mg/dL 70-110 TESTED AT [facility] [address] (test tvcu=7898) [facility] [address] POCT-GLUCOSE [id number] 08:07:00 Test Item Value Reference Range Comments POC-GLUCOSE METER (BEAKER) 99 mg/dL 70-110 TESTED AT [facility] [address] (test nvsh=4572) [facility] [address] U/S, ABDOMINAL, [id number] 08:05:00Abdomen limited area? Add comment if clarification [...] be secondary to portal hypertension. Signed: Juan Ramoseport Verified Date /Time: 09/30/2018 08:05:48 Reading Location: [place] [id number] Ultrasound Reading Room [id number] 07:23:00 Test Item Value Reference Range Comments PHOSPHORUS (BEAKER) (test vvgi=114) 1.2 mg/dL 2.3-4.7 [id number] 07:11:00 Test Item Value Reference Range Comments MAGNESIUM (BEAKER) (test iwls=806) 2.3 mg/dL 1.6-2.6 COMPREHENSIVE METABOLIC [id number] 07:11:00 Test Item Value Reference Range Comments TOTAL PROTEIN (BEAKER) 5.8 gm/dL 6.0-8.3 (test tkzz=120) ALBUMIN (BEAKER) (test 3.1 g/dL 3.5-5.0 ktrm=8056) ALKALINE PHOSPHATASE 141 U/L 40-150 (BEAKER) (test tiva=383) BILIRUBIN TOTAL (BEAKER) 1.1 mg/dL 0.2-1.2 (test jaoi=298) SODIUM (BEAKER) (test 135 meq/L 136-145 tswq=785) POTASSIUM (BEAKER) (test 3.7 meq/L 3.5-5.1 gcxm=130) CHLORIDE (BEAKER) (test 104 meq/L 98-107 cpgj=055) CO2 (BEAKER) (test 24 meq/L 22-29 fhvc=558) BLOOD UREA NITROGEN 5 mg/dL 7-21 (BEAKER) (test kvcg=673) CREATININE (BEAKER) (test 0.39 mg/dL 0.57-1.25 iewm=701) GLUCOSE RANDOM (BEAKER) 114 mg/dL 70-105 (test qkxk=443) CALCIUM (BEAKER) (test 8.3 mg/dL 8.4-10.2 hhbl=072) AST (SGOT) (BEAKER) (test 354 U/L 5-34 vtdu=195) ALT (SGPT) (BEAKER) (test 188 U/L 6-55 ruaq=301) EGFR (BEAKER) (test 258 mL/min/1.73 sq ESTIMATED GFR IS NOT tjsd=4322) m ACCURATE CREATININE CLEARANCE IN PREDICTING GLOMERULAR FILTRATION RATE. ESTIMATED GFR IS NOT APPLICABLE FOR DIALYSIS PATIENTS. LACTIC ACID, [id number] 04:07:00 Test Item Value Reference Range Comments LACTATE BLOOD VENOUS (2) 0.8 mmol/L 0.5-2.2 Specimen slightly hemolyzed (BEAKER) (test paxt=1635) CBC W/PLT COUNT & AUTO [id number] 04:00:00 Test Item Value Reference Range Comments WHITE BLOOD CELL COUNT (BEAKER) (test svwn=846) 6.1 K/ L 3.5-10.5 RED BLOOD CELL COUNT (BEAKER) (test vmnx=961) 3.87 M/ L 4.63-6.08 HEMOGLOBIN (BEAKER) (test luck=504) 13.3 GM/DL 13.7-17.5 HEMATOCRIT (BEAKER) (test zbvs=810) 39.1 % 40.1-51.0 MEAN CORPUSCULAR VOLUME (BEAKER) (test gtsa=823) 101.0 fL 79.0-92.2 MEAN CORPUSCULAR HEMOGLOBIN (BEAKER) (test 34.4 pg 25.7-32.2 hjpy=763) MEAN CORPUSCULAR HEMOGLOBIN CONC (BEAKER) (test 34.0 GM/DL 32.3-36.5 aoyf=920) RED CELL DISTRIBUTION WIDTH (BEAKER) (test 12.1 % 11.6-14.4 klso=280) PLATELET COUNT (BEAKER) (test pxwc=290) 105 K/CU MM 150-450 MEAN PLATELET VOLUME (BEAKER) (test aqnz=841) 10.4 fL 9.4-12.4 NUCLEATED RED BLOOD CELLS (BEAKER) (test 0 /100 WBC 0-0 mnfm=485) NEUTROPHILS RELATIVE PERCENT (BEAKER) (test 74 % hlud=034) LYMPHOCYTES RELATIVE PERCENT (BEAKER) (test 14 % suyy=319) MONOCYTES RELATIVE PERCENT (BEAKER) (test 10 % xhdv=671) EOSINOPHILS RELATIVE PERCENT (BEAKER) (test 1 % wnei=687) BASOPHILS RELATIVE PERCENT (BEAKER) (test 1 % vhwd=317) NEUTROPHILS ABSOLUTE COUNT (BEAKER) (test 4.52 K/ L 1.78-5.38 nlkg=186) LYMPHOCYTES ABSOLUTE COUNT (BEAKER) (test 0.84 K/ L 1.32-3.57 biag=657) MONOCYTES ABSOLUTE COUNT (BEAKER) (test 0.62 K/ L 0.30-0.82 awds=856) EOSINOPHILS ABSOLUTE COUNT (BEAKER) (test 0.06 K/ L 0.04-0.54 ntug=673) BASOPHILS ABSOLUTE COUNT (BEAKER) (test 0.03 K/ L 0.01-0.08 nuwz=214) IMMATURE GRANULOCYTES-RELATIVE PERCENT (BEAKER) 0 % 0-1 (test gtpy=8611) [id number] 01:32:00 Test Item Value Reference Range Comments PROCALCITONIN (BEAKER) (test uzdp=0546) 0.48 ng/mL <0.05 SEPSIS RISK (ng/mL)Low: 0.05-0.50Intermediate: 0.51-2.00High: & gt;=2.01BASIC METABOLIC [id number] 00:58:00 Test Item Value Reference Range Comments SODIUM (BEAKER) (test 135 meq/L 136-145 bevd=004) POTASSIUM (BEAKER) (test 3.4 meq/L 3.5-5.1 taae=555) CHLORIDE (BEAKER) (test 104 meq/L 98-107 gyjd=398) CO2 (BEAKER) (test 22 meq/L 22-29 lmmg=690) BLOOD UREA NITROGEN 7 mg/dL 7-21 (BEAKER) (test cxjk=256) CREATININE (BEAKER) (test 0.55 mg/dL 0.57-1.25 mmmz=580) GLUCOSE RANDOM (BEAKER) 113 mg/dL 70-105 (test tlqr=611) CALCIUM (BEAKER) (test 8.4 mg/dL 8.4-10.2 ucuo=108) EGFR (BEAKER) (test 174 mL/min/1.73 sq m ESTIMATED GFR IS NOT jlhw=3694) ACCURATE CREATININE CLEARANCE IN PREDICTING GLOMERULAR FILTRATION RATE. ESTIMATED GFR IS NOT APPLICABLE FOR DIALYSIS PATIENTS. [id number] 00:57:00 Test Item Value Reference Range Comments MAGNESIUM (BEAKER) (test xyvx=246) 1.5 mg/dL 1.6-2.6 LACTIC ACID, [id number] 00:37:00 Test Item Value Reference Range Comments LACTATE BLOOD VENOUS (2) 0.7 mmol/L 0.5-2.2 Specimen moderately hemolyzed (BEAKER) (test dcjr=5862) POCT-GLUCOSE [id number] 00:25:00 Test Item Value Reference Range Comments POC-GLUCOSE METER (BEAKER) 101 mg/dL 70-110 TESTED AT [address] (test pvrx=3440) [place] [id number] POCT-GLUCOSE [id number] 18:32:00 Test Item Value Reference Range Comments POC-GLUCOSE METER (BEAKER) 76 mg/dL 70-110 TESTED AT [address] (test bmtb=2852) [place] [address] [id number] 15:15:00 Test Item Value Reference Range Comments POTASSIUM (BEAKER) (test qtit=500) 3.4 meq/L 3.5-5.1 [id number] 15:15:00 Test Item Value Reference Range Comments MAGNESIUM (BEAKER) (test rofq=499) 2.1 mg/dL 1.6-2.6 CT, [id number] 12:38:00FINAL REPORT CT abdomen with and without [...] Verified Date/Time: 09/29/2018 12:38:07 Reading Location : [address] Reading Room POCT-GLUCOSE [id number] 11:49:00 Test Item Value Reference Range Comments POC-GLUCOSE METER (BEAKER) 83 mg/dL 70-110 TESTED AT [facility] [address] (test idfi=3188) [facility] [address] [id number] 10:49:00 Test Item Value Reference Range Comments TRIGLYCERIDES (BEAKER) (test 71 mg/dL Specimen slightly hemolyzed mkhp=098) TRIGLYCERIDE REFERENCE RANGELow Risk <150Borderline Risk 150-199High Risk 200-499Very High Risk>=[id number] 05:09:00 Test Item Value Reference Range Comments LIPASE (BEAKER) (test hizr=071) > U/L 8-78 [id number] 04:35:00 Test Item Value Reference Range Comments MAGNESIUM (BEAKER) (test 1.6 mg/dL 1.6-2.6 Specimen slightly hemolyzed rzam=270) [id number] 04:35:00 Test Item Value Reference Range Comments PHOSPHORUS (BEAKER) (test 3.2 mg/dL 2.3-4.7 Specimen slightly hemolyzed frff=445) COMPREHENSIVE METABOLIC [id number] 04:35:00 Test Item Value Reference Range Comments TOTAL PROTEIN (BEAKER) 6.8 gm/dL 6.0-8.3 Specimen slightly (test tyqt=473) hemolyzed ALBUMIN (BEAKER) (test 3.8 g/dL 3.5-5.0 Specimen slightly fain=5859) hemolyzed ALKALINE PHOSPHATASE 130 U/L 40-150 (BEAKER) (test qxtv=981) BILIRUBIN TOTAL (BEAKER) 1.7 mg/dL 0.2-1.2 Specimen slightly (test bxwl=782) hemolyzed SODIUM (BEAKER) (test 138 meq/L 136-145 boqu=756) POTASSIUM (BEAKER) (test 3.7 meq/L 3.5-5.1 Specimen slightly ikyd=722) hemolyzed CHLORIDE (BEAKER) (test 103 meq/L 98-107 dkcy=739) CO2 (BEAKER) (test 17 meq/L 22-29 iose=238) BLOOD UREA NITROGEN 9 mg/dL 7-21 (BEAKER) (test qnid=199) CREATININE (BEAKER) (test 0.65 mg/dL 0.57-1.25 Specimen slightly uass=546) hemolyzed GLUCOSE RANDOM (BEAKER) 103 mg/dL 70-105 (test bwza=768) CALCIUM (BEAKER) (test 8.7 mg/dL 8.4-10.2 cwuj=824) AST (SGOT) (BEAKER) (test 151 U/L 5-34 Specimen slightly lzby=225) hemolyzed ALT (SGPT) (BEAKER) (test 143 U/L 6-55 Specimen slightly cfmq=807) hemolyzed EGFR (BEAKER) (test 143 mL/min/1.73 sq ESTIMATED GFR IS NOT sckf=1002) m ACCURATE CREATININE CLEARANCE IN PREDICTING GLOMERULAR FILTRATION RATE. ESTIMATED GFR IS NOT APPLICABLE FOR DIALYSIS PATIENTS. PROTHROMBIN [id number] 04:34:00 Test Item Value Reference Range Comments PROTIME (BEAKER) (test vkui=764) 14.6 seconds 11.7-14.7 INR (BEAKER) (test kjte=814) 1.1 <=5.9 RECOMMENDED COUMADIN/WARFARIN INR THERAPY RANGESSTANDARD DOSE: 2.0 - 3.0 Includes: PROPHYLAXIS forvenous thrombosis, systemic embolization; TREATMENT for venous thrombosis and/or pulmonary embolus.HIGH RISK: Target INR is 2.5-3.5 for patients with mechanical heart valves.CBC W/PLT COUNT & AUTO [id number] 04:09:00 Test Item Value Reference Range Comments WHITE BLOOD CELL COUNT (BEAKER) (test bwgu=594) 6.2 K/ L 3.5-10.5 RED BLOOD CELL COUNT (BEAKER) (test mpty=693) 4.33 M/ L 4.63-6.08 HEMOGLOBIN (BEAKER) (test weet=754) 15.0 GM/DL 13.7-17.5 HEMATOCRIT (BEAKER) (test ycth=566) 43.2 % 40.1-51.0 MEAN CORPUSCULAR VOLUME (BEAKER) (test hzvg=879) 99.8 fL 79.0-92.2 MEAN CORPUSCULAR HEMOGLOBIN (BEAKER) (test 34.6 pg 25.7-32.2 zlcw=185) MEAN CORPUSCULAR HEMOGLOBIN CONC (BEAKER) (test 34.7 GM/DL 32.3-36.5 xwal=168) RED CELL DISTRIBUTION WIDTH (BEAKER) (test 12.4 % 11.6-14.4 hyma=182) PLATELET COUNT (BEAKER) (test fuze=530) 160 K/CU MM 150-450 MEAN PLATELET VOLUME (BEAKER) (test wjgo=727) 10.4 fL 9.4-12.4 NUCLEATED RED BLOOD CELLS (BEAKER) (test 0 /100 WBC 0-0 osvp=394) NEUTROPHILS RELATIVE PERCENT (BEAKER) (test 81 % ycos=862) LYMPHOCYTES RELATIVE PERCENT (BEAKER) (test 7 % csmx=463) MONOCYTES RELATIVE PERCENT (BEAKER) (test 10 % wwue=438) EOSINOPHILS RELATIVE PERCENT (BEAKER) (test 0 % fhwt=827) BASOPHILS RELATIVE PERCENT (BEAKER) (test 1 % wnce=139) NEUTROPHILS ABSOLUTE COUNT (BEAKER) (test 5.01 K/ L 1.78-5.38 rhqk=011) LYMPHOCYTES ABSOLUTE COUNT (BEAKER) (test 0.44 K/ L 1.32-3.57 apyf=847) MONOCYTES ABSOLUTE COUNT (BEAKER) (test 0.62 K/ L 0.30-0.82 zkeb=582) EOSINOPHILS ABSOLUTE COUNT (BEAKER) (test 0.01 K/ L 0.04-0.54 tlgo=209) BASOPHILS ABSOLUTE COUNT (BEAKER) (test 0.03 K/ L 0.01-0.08 nzbh=744) IMMATURE GRANULOCYTES-RELATIVE PERCENT (BEAKER) 1 % 0-1 (test mqcq=0911)
[2019-03-17 21:33] LABS: Absolute Lymphocytes (CBC) 2.1 K/uL (0.7-4.9); Basophils % 0.5 % (0-1.3); Hematocrit 40.2 % (39.6-49.0); Lymphocytes % 19.1 % (15.3-44.8); MPV 8.6 fL (7.6-11.3); RBC Red Blood Cell Count 4.18 M/uL (4.33-5.43)
[2019-03-17 21:50] LABS: ALT/SGPT 30 U/L (12-78); AST/SGOT 63 U/L (15-37); Albumin 2.7 g/dL (3.4-5.0); Alkaline Phosphatase 183 U/L (45-117); BUN Blood Urea Nitrogen 5 mg/dL (7-18); Bicarbonate 24 mmol/L (21-32); Bilirubin Direct 0.3 mg/dL (0-0.2); Bilirubin Total 0.4 mg/dL (0.2-1.0); Glucose Level 92 mg/dL (74-106); Lipase 1165 U/L (73-393); Protein, Total 6.9 g/dL (6.4-8.2); Sodium Level 140 mmol/L (136-145)
--- NOTE | 2019-03-17 22:18 | ER ---
Nurse's Notes [facility] Name: Jonathan Gutierrez Age: 33 yrs Sex: Male : 1985 Arrival Date: 03/17/2019 Time: 21:03 Bed 26 Private MD: Diagnosis: Acute pancreatitis;Alcohol abuse Presentation: 03/17 21:03 Presenting complaint: EMS states: Pt C/O abdominal pain started today 4/10 on a pain scale. Pt states he is Alcoholic and last drink was today. Pt states he has Hx of Pancreatitis and that he only drinks alcohol because of the pain. Transition of care: patient was not received from another setting of care. Onset of symptoms was March 17, 2019. Risk Assessment: Do you want to hurt yourself or someone else? Patient reports no desire to harm self or others. Initial Sepsis Screen: Does the patient meet any 2 criteria? No. Patient's initial sepsis screen is negative. Does the patient have a suspected source of infection? Yes: Acute abdominal pain. Care prior to arrival: None. 21:03 Method Of Arrival: EMS: [facility] 21:03 Acuity: NEO 3 Triage Assessment: 21:08 General: Appears. 22:30 General: Behavior is calm. Pain: Complains of pain in abdomen Pain does not radiate. Pain currently is 4 out of 10 on a pain scale. Quality of pain is described as aching, Pain began 1 day ago. Historical: - Allergies: 21:08 No Known Allergies; - Home Meds: 21:08 Folic Acid Oral [Active]; Thiamine Oral [Active]; - PMHx: 21:08 etoh abuse; Hypertension; liver "spot"; Pancreatitis; - Immunization history:: Adult Immunizations unknown. - Social history:: Smoking status: Patient uses tobacco products. - Ebola Screening: : Patient negative for fever greater than or equal to 101.5 degrees Fahrenheit, and additional compatible Ebola Virus Disease symptoms Patient denies exposure to infectious person. Screenin:05 Abuse screen: Denies threats or abuse. Denies injuries from another. Nutritional screening: No deficits noted. Tuberculosis screening: No symptoms or risk factors identified. Fall Risk None identified. Vital Signs: 21:06 BP 124 / 79; Pulse 128; Resp 18; Temp 98.7; Pulse Ox 98% on R/A; ED Course: 21:03 Patient arrived in ED. 21:05 Triage completed. 21:09 Patient has correct armband on for positive identification. Bed in low position. Call light in reach. Side rails up X 1. Pulse ox on. NIBP on. 21:20 Initial lab(s) drawn, by me, sent to lab. Inserted saline lock: 20 gauge in right jp3 forearm, using aseptic technique. Blood collected. Patient maintains SpO2 saturation greater than 95% on room air. 21:21 Warm blanket given. Verbal reassurance given. jp3 21:30 Arm band placed on right wrist. Patient notified of wait time. 22:04 Gordon Pratt PA is PHCP. jr8 22:04 Wagner Robles MD is Attending Physician. [facility] 22:30 No provider procedures requiring assistance completed. IV discontinued, intact, bleeding controlled, No redness/swelling at site. 22:49 Ashlyn Isaac is Primary Nurse. Administered Medications: No medications were administered Outcome: 22:30 AMA AMA form signed 22:52 Patient left the ED. Signatures: Gordon Pratt PA PA [facility] Ashlyn Isaac Jose Luis Chandler jp3
--- NOTE | 2019-03-17 22:19 | EDPHYS ---
Physician Documentation [facility] Name: Jonathan Gutierrez Age: 33 yrs Sex: Male : 1985 Arrival Date: 03/17/2019 Time: 21:03 Bed 26 Private MD: ED Physician Wagner Robles HPI: 03/17 22:33 This 33 yrs old Male presents to ER via EMS with complaints of Abdominal Pain.jr8 22:33 The patient presents with abdominal pain in the upper abdomen. Onset: The jr8 symptoms/episode began/occurred acutely, 3 day(s) ago. The symptoms do not radiate. Associated signs and symptoms: Pertinent positives: nausea. The symptoms are described as shooting, stabbing. Modifying factors: The symptoms are alleviated by nothing, the symptoms are aggravated by food. Severity of pain: At its worst the pain was moderate in the emergency department the pain is unchanged. The patient has experienced similar episodes in the past, multiple times, chronically. The patient has not recently seen a physician. Patient with chronic alcohol and drug abuse. History of chronic pancreatitis. Came to ED today for upper abdominal pain. Stated that he believes he is having a flare up of his pancreatitis. Started to drink alcohol again to help control the pain . Historical: - Allergies: 21:08 No Known Allergies; - Home Meds: 21:08 Folic Acid Oral [Active]; Thiamine Oral [Active]; - PMHx: 21:08 etoh abuse; Hypertension; liver "spot"; Pancreatitis; - Immunization history:: Adult Immunizations unknown. - Social history:: Smoking status: Patient uses tobacco products. - Ebola Screening: : Patient negative for fever greater than or equal to 101.5 degrees Fahrenheit, and additional compatible Ebola Virus Disease symptoms Patient denies exposure to infectious person. ROS: 22:33 Eyes: Negative for injury, pain, redness, and discharge, ENT: Negative for injury, jr8 pain, and discharge, Neck: Negative for injury, pain, and swelling, Cardiovascular: Negative for chest pain, palpitations, and edema, Respiratory: Negative for shortness of breath, cough, wheezing, and pleuritic chest pain, Back: Negative for injury and pain, MS/Extremity: Negative for injury and deformity, Skin: Negative for injury, rash, and discoloration, Neuro: Negative for headache, weakness, numbness, tingling, and seizure. 22:33 Abdomen/GI: Positive for abdominal pain, nausea, vomiting, and diarrhea, Negative for abdominal distension, anorexia, dysphagia, hematemesis, black/tarry stool, rectal pain, rectal bleeding, bowel incontinence, flatulence. Exam: 22:33 Eyes: Pupils equal round and reactive to light, extra-ocular motions intact. Lids and jr8 lashes normal. Conjunctiva and sclera are non-icteric and not injected. Cornea within normal limits. Periorbital areas with no swelling, redness, or edema. ENT: Nares patent. No nasal discharge, no septal abnormalities noted. Tympanic membranes are normal and external auditory canals are clear. Oropharynx with no redness, swelling, or masses, exudates, or evidence of obstruction, uvula midline. Mucous membranes moist. Neck: Trachea midline, no thyromegaly or masses palpated, and no cervical lymphadenopathy. Supple, full range of motion without nuchal rigidity, or vertebral point tenderness. No Meningismus. Cardiovascular: Regular rate and rhythm with a normal S1 and S2. No gallops, murmurs, or rubs. Normal PMI, no JVD. No pulse deficits. Respiratory: Lungs have equal breath sounds bilaterally, clear to auscultation and percussion. No rales, rhonchi or wheezes noted. No increased work of breathing, no retractions or nasal flaring. Back: No spinal tenderness. No costovertebral tenderness. Full range of motion. Skin: Warm, dry with normal turgor. Normal color with no rashes, no lesions, and no evidence of cellulitis. MS/ Extremity: Pulses equal, no cyanosis. Neurovascular intact. Full, normal range of motion. Neuro: Awake and alert, GCS 15, oriented to person, place, time, and situation. Cranial nerves II-XII grossly intact. Motor strength 5/5 in all extremities. Sensory grossly intact. Cerebellar exam normal. Normal gait. 22:33 Abdomen/GI: Inspection: abdomen appears normal, Bowel sounds: active, all quadrants, Palpation: soft, in all quadrants, moderate abdominal tenderness, in the epigastric area, right upper quadrant and left upper quadrant, mass, is not appreciated, rebound tenderness, is not appreciated, voluntary guarding, is not appreciated, involuntary guarding, is not appreciated, no appreciated organomegaly, Indicators: McBurney's point is not tender, Carreon's sign is negative, Rovsing's sign is negative, Liver: tenderness, is not appreciated. Vital Signs: 21:06 BP 124 / 79; Pulse 128; Resp 18; Temp 98.7; Pulse Ox 98% on R/A; wh MDM: 22:13 Data reviewed: vital signs, nurses notes, lab test result(s). Data interpreted: Pulse jr8 oximetry: on room air is 98 %. Interpretation: normal. Counseling: I had a detailed discussion with the patient and/or guardian regarding: the historical points, exam findings, and any diagnostic results supporting the discharge/admit diagnosis, lab results, the need for further work-up and treatment in the hospital. ED course: After assessing and getting blood work on patient. Patient due to location and family status can not stay at hospital. Advised patient that he has acute on chronic pancreatitis with elevated HR. Patient should be admitted for fluid resuscitation and pain management. Patient stated that he will have someone take him to [facility] in the [facility] as that is closer to where he needs to be. Patient signed AMA form knowing that he is sick and that condition could worsen. 22:17 Patient medically screened. jr8 03/17 21:10 Order name: Basic Metabolic Panel; Complete Time: 22:11 la1 03/17 21:10 Order name: CBC with Diff; Complete Time: 22:11 la03/17 21:10 Order name: Creatinine for Radiology; Complete Time: 22:11 la1 03/17 21:10 Order name: Hepatic Function; Complete Time: 22:11 la1 03/17 21:10 Order name: Lipase; Complete Time: 22:11 la1 03/17 21:10 Order name: IV Saline Lock; Complete Time: 21:21 la1 03/17 21:10 Order name: Labs collected and sent; Complete Time: 21:21 la1 Administered Medications: No medications were administered Disposition: 03/18 06:31 Co-signature as Attending Physician, Wagner Robles MD. pkl Disposition: 03/17/19 22:17 Patient has left against medical advice. Impression: Acute pancreatitis, Alcohol abuse. - Patients states they are going to Home. - Condition is Stable. - Discharge Instructions: Alcohol Intoxication, Acute Pancreatitis. Follow up: Emergency Department; When: Upon discharge from the Emergency Department; Reason: Recheck today's complaints, Continuance of care, Re-evaluation by your physician. - Problem is new. - Symptoms are unchanged. Signatures: Dispatcher [employer] EDWagner Mcdonald MD MD pkl Roszak, Josh, PA PA jr8 Charles Berger RN RN la1 Ashlyn Isaac Corrections: (The following items were deleted from the chart) 03/17 22:52 22:17 03/17/2019 22:17 Patients has left against medical advice. Impression: Acute wh pancreatitis; Alcohol abuse. Patient states they are going to Home. Condition is Stable. Follow up: Emergency Department; When: Upon discharge from the Emergency Department; Reason: Recheck today's complaints, Continuance of care, Re-evaluation by your physician. Problem is new. Symptoms are unchanged. jr8
[2019-03-17 23:34] VITALS: BP 124/79; TEMP 98.7; O2SAT 98
== END 2019-03-17 22:52 | disposition left against medical advice (07) ==
LOC: ER 20:59
DX: K85.90 Acute pancreatitis without necrosis or infection, unspecified (principal); F10.10 Alcohol abuse, uncomplicated; I10 Essential (primary) hypertension; Z72.0 Tobacco use
CPT/HCPCS: 36415; 80048; 80076; 83690; 85025; 99284

== ENCOUNTER 2019-04-23 21:13 | Emergency (ER) | payer SELFPAY ==
[2019-04-23] MEDS ORDERED: NA CHLORIDE 0.9% 1,000 ML ONE (21:51)
[2019-04-23] MEDS ORDERED: LORazepam 2 MG/ML VIAL ONE (21:51)
[2019-04-23 22:18] LABS: Absolute Lymphocytes (CBC) 3.3 K/uL (0.7-4.9); Basophils % 0.7 % (0-1.3); Hematocrit 35.6 % (39.6-49.0); Lymphocytes % 35.3 % (15.3-44.8); MPV 8.1 fL (7.6-11.3); RBC Red Blood Cell Count 4.02 M/uL (4.33-5.43)
[2019-04-23 22:38] LABS: ALT/SGPT 31 U/L (12-78); AST/SGOT 26 U/L (15-37); Albumin 3.7 g/dL (3.4-5.0); Alkaline Phosphatase 119 U/L (45-117); BUN Blood Urea Nitrogen 9 mg/dL (7-18); Bicarbonate 23 mmol/L (21-32); Bilirubin Total 0.2 mg/dL (0.2-1.0); Glucose Level 109 mg/dL (74-106); Lipase 1491 U/L (73-393); Protein, Total 8.2 g/dL (6.4-8.2); Sodium Level 144 mmol/L (136-145)
[2019-04-24] MEDS ORDERED: KETOROLAC 30 MG/ML INJ ONE (00:03)
[2019-04-24] MEDS ORDERED: NA CHLORIDE 0.9% 1,000 ML ONE (00:04)
[2019-04-24 00:14] LABS: Urine Specific Gravity 1.015 (1.005-1.030)
[2019-04-24 00:15] LABS: Urine Blood 3+ (NEG); Urine Glucose NEGATIVE (NEG); Urine Protein NEGATIVE (NEG); Urine pH 5.5 (5.0-7.0)
[2019-04-24 00:18] LABS: Barbiturates NEGATIVE (NEGATIVE); Benzodiazepines NEGATIVE (NEGATIVE); Cocaine NEGATIVE (NEGATIVE); METHAMPHETAM NEGATIVE (NEGATIVE); Methadone NEGATIVE (NEGATIVE); Opiates NEGATIVE (NEGATIVE); Phencyclidine NEGATIVE (NEGATIVE); THC Cannibis NEGATIVE (NEGATIVE)
--- NOTE | 2019-04-24 00:19 | ER ---
Nurse's Notes [facility] Name: Jonathan Gutierrez Age: 33 yrs Sex: Male : 1985 Arrival Date: 04/23/2019 Time: 21:18 Bed 18 Private MD: Diagnosis: Presentation: 04/23 21:19 Presenting complaint: Patient states: drunk a pint of vodka 2 days ago and since rv yesterday I was hurting and could not eat or drink anything. EMS: given zofran 4 mg IV and total of Fentanyl 100mcg IV. patient smells alcohol. Transition of care: patient was not received from another setting of care. Onset of symptoms was April 22, 2019 at 08:00. Risk Assessment: Do you want to hurt yourself or someone else? Patient reports no desire to harm self or others. Initial Sepsis Screen: Does the patient meet any 2 criteria? No. Patient's initial sepsis screen is negative. Does the patient have a suspected source of infection? No. Patient's initial sepsis screen is negative. Care prior to arrival: None. 21:19 Method Of Arrival: EMS: [facility] 21:19 Acuity: NEO 2 rv Triage Assessment: 21:25 General: Appears in no apparent distress. Behavior is calm, cooperative, Smells of rv alcohol. Pain: Complains of pain in abdomen. EENT: No signs and/or symptoms were reported regarding the EENT system. Neuro: Level of Consciousness is awake, alert, obeys commands, Oriented to person, place, time, situation. Cardiovascular: Patient's skin is warm and dry. Respiratory: Airway is patent. GI: No signs and/or symptoms were reported involving the gastrointestinal system. : No signs and/or symptoms were reported regarding the genitourinary system. Derm: Skin is intact. Musculoskeletal: No signs and/or symptoms reported regarding the musculoskeletal system. Historical: - Allergies: 21:24 No Known Allergies; rv - Home Meds: 21:24 Folic Acid Oral [Active]; Thiamine Oral [Active]; rv - PMHx: 21:24 etoh abuse; Hypertension; liver "spot"; Pancreatitis; rv - PSHx: 21:24 None; rv - Immunization history:: Adult Immunizations up to date. - Social history:: Smoking status: Patient uses tobacco products. - Ebola Screening: : No symptoms or risks identified at this time. Screenin:26 Abuse screen: Denies threats or abuse. Denies injuries from another. Nutritional rv screening: No deficits noted. Tuberculosis screening: No symptoms or risk factors identified. Fall Risk None identified. Assessment: 22:03 General: Appears in no apparent distress. Behavior is cooperative, appropriate for age, wh Smells of alcohol. Pain: Complains of pain in right upper quadrant Pain does not radiate. Pain currently is 9 out of 10 on a pain scale. Quality of pain is described as aching, Pain began 2-3 days ago. Neuro: Level of Consciousness is awake, alert, obeys commands, Oriented to person, place, time, situation, Appropriate for age. Cardiovascular: Heart tones S1 S2. Respiratory: Airway is patent Respiratory effort is even, unlabored, Respiratory pattern is regular, symmetrical. GI: Abdomen is flat, non-distended, Bowel sounds present X 4 quads. Abd is soft Reports upper abdominal pain. : No signs and/or symptoms were reported regarding the genitourinary system. EENT: No signs and/or symptoms were reported regarding the EENT system. Derm: Skin is intact, is healthy with good turgor, Skin is pink, warm \\T\\ dry. normal. Musculoskeletal: Circulation, motion, and sensation intact. 22:10 Reassessment: Pt was caught smoking in the room, explained that what he was doing was wh dangerous and illegal. MD and Charge Nurse was notified. 22:45 Reassessment: Patient appears in no apparent distress at this time. Patient and/or wh family updated on plan of care and expected duration. Pain level reassessed. Patient is alert, oriented x 3, equal unlabored respirations, skin warm/dry/pink. Pt walking in the hallway wanting to leave, explained he need to sign AMA and IV access be removed before leaving. Explained to Pt that MD was in ICU for a code and that he will be back as soon as he can. 23:31 Reassessment: Patient appears in no apparent distress at this time. Patient and/or wh family updated on plan of care and expected duration. Pain level reassessed. Patient is alert, oriented x 3, equal unlabored respirations, skin warm/dry/pink. Pt seeking drug seeking behavior, making threats, explained to Pt that MD is aware of current complaint for pain. 23:40 Reassessment: Security was called in room. Pt agitated in room walking shouting. Charge Nurse talking to Pt. 23:40 Reassessment: Was in room speaking with pt and explained that he could not be yelling fc and cursing due to him being in the ER and there being other people including children around. Pt states that he is just going to leave and come back with someone that will make us take care of him. I explained that he needed to stay in his room and stay connected to the monitors so we could watch his vitals. Pt was then connected to monitors and promises to stay in bed quietly. He says if we would just give him pain medication he would stay in bed. I explained that I would discuss his request with \\. 04/24 00:04 Reassessment: Police here to speak with pt about not smoking in room and staying in his fc room. He told police that he would be "good". Pt then disconnected himself and came to nurses station. I asked him why he was up and explained he needed to be in his room and he then went back. Dr Boudreaux ordered him Toradol and additional liter of NS. 00:13 Reassessment: Pt was ordered Toradol IV, Pt refusing ordered meds stating he wanted wh something stronger. Explained to PT we can try it first and if it doesn't work we melvi always ask the MD for something else. Pt said that he wants something stronger and that Toradol wont work. I've explained we can try it first. Pt doesn't want to have toradol. Insisted on walking AMA. Explained AMA, paper signed Iv removed. Vital Signs: 04/23 21:23 Pulse 141; Resp 15; Temp 99.1; Pulse Ox 99% ; Weight 74.84 kg; Height 5 ft. 11 in. rv (180.34 cm); Pain 4/10; 21:23 BP 125 / 87; wh 22:30 BP 110 / 50; Pulse 137; Resp 18; Pulse Ox 100% ; wh 23:51 BP 109 / 85; Pulse 130; Resp 18; Pulse Ox 99% on R/A; wh 21:23 Body Mass Index 23.01 (74.84 kg, 180.34 cm) rv ED Course: 21:18 Patient arrived in ED. em1 21:23 Triage completed. rv 21:24 Ashlyn Isaac is Primary Nurse. 21:25 Maintain EMS IV. Dressing intact. Good blood return noted. Site clean \\T\\ dry. Gauge \\T\\ rv site: g18 right forearm. 21:26 Patient has correct armband on for positive identification. Bed in low position. Call rv light in reach. Side rails up X 1. Pulse ox on. NIBP on. 21:26 Patient placed in the treatment room, on a stretcher, on continuous wave operator, on pulse rv oximetry, Patient notified of wait time. 21:30 Gerson Boudreaux MD is Attending Physician. [facility] 04/24 00:17 IV discontinued, intact, bleeding controlled, No redness/swelling at site. 00:17 No provider procedures requiring assistance completed. 00:21 Primary Nurse role handed off by Ashlyn Isaac rv Administered Medications: 04/23 22:00 Drug: Ativan 2 mg Route: IVP; Site: right antecubital; 04/24 00:19 Follow up: Response: No adverse reaction; Anxiety unchanged; RASS: Agitated (+2) 04/23 22:00 Drug: NS 0.9% 1000 ml Route: IV; Rate: 1 bolus; Site: right antecubital; 04/24 00:19 Follow up: Response: No adverse reaction; IV Status: Completed infusion 00:22 Not Given (Patient Refused): TORadol 30 mg IVP once 00:22 Not Given (Patient Refused): NS 0.9% 1000 ml IV at 1 bolus Per protocol; 1000 mL bolus rv Outcome: 00:17 AMA AMA form signed 00:17 Condition: good 00:17 Instructed on benefits of quitting smoking. 00:18 Patient left the ED. 00:23 Patient left the ED. rv Signatures: Sho Jimenez, RN Elliott Rubio em1 Ashlyn Isaac Gerson Boudreaux MD MD ps1 Juan J Silva RN RN rv
--- NOTE | 2019-04-24 00:19 | EDPHYS ---
Physician Documentation [facility] Name: Jonathan Gutierrez Age: 33 yrs Sex: Male : 1985 Arrival Date: 04/23/2019 Time: 21:18 Bed 18 Private MD: ED Physician Gerson Boudreaux HPI: 04/23 23:43 This 33 yrs old Male presents to ER via EMS with complaints of intoxication ps1 and abdominal pain. 23:43 patient states that he drank a gallon of alcohol 2 days ago. Denies ETOH consumption. ps1 Has history of pancreatitis on multiple occasions. States that he had epigastric pain. Has hand written scripts for OxyContin IR/ER that he states that he cannot get filled (dated in february). Recently admitted for same in [place]. Sent home with T3 that he took (04/17). . Historical: - Allergies: 21:24 No Known Allergies; rv - Home Meds: 21:24 Folic Acid Oral [Active]; Thiamine Oral [Active]; rv - PMHx: 21:24 etoh abuse; Hypertension; liver "spot"; Pancreatitis; rv - PSHx: 21:24 None; rv - Immunization history:: Adult Immunizations up to date. - Social history:: Smoking status: Patient uses tobacco products. - Ebola Screening: : No symptoms or risks identified at this time. ROS: 23:43 Constitutional: Negative for fever, chills, and weight loss, Eyes: Negative for injury, ps1 pain, redness, and discharge, Cardiovascular: Negative for chest pain, palpitations, and edema, Respiratory: Negative for shortness of breath, cough, wheezing, and pleuritic chest pain, MS/Extremity: Negative for injury and deformity, Skin: Negative for injury, rash, and discoloration. 23:43 Abdomen/GI: Positive for abdominal pain. Exam: 23:43 Constitutional: This is a well developed, well nourished patient who is awake, alert, ps1 and in no acute distress. Head/Face: Normocephalic, atraumatic. Eyes: Pupils equal round and reactive to light, extra-ocular motions intact. Lids and lashes normal. Conjunctiva and sclera are non-icteric and not injected. Chest/axilla: Normal chest wall appearance and motion. Nontender with no deformity. No lesions are appreciated. Respiratory: Lungs have equal breath sounds bilaterally, clear to auscultation and percussion. No rales, rhonchi or wheezes noted. No increased work of breathing, no retractions or nasal flaring. Skin: Warm, dry with normal turgor. Normal color with no rashes, no lesions, and no evidence of cellulitis. MS/ Extremity: Pulses equal, no cyanosis. Neurovascular intact. Full, normal range of motion. Neuro: Awake and alert, GCS 15, oriented to person, place, time, and situation. Cranial nerves II-XII grossly intact. Sensory grossly intact. 23:43 Cardiovascular: Rate: tachycardic, Rhythm: regular, Pulses: no pulse deficits are appreciated. Vital Signs: 21:23 Pulse 141; Resp 15; Temp 99.1; Pulse Ox 99% ; Weight 74.84 kg; Height 5 ft. 11 in. rv (180.34 cm); Pain 4/10; 21:23 BP 125 / 87; wh 22:30 BP 110 / 50; Pulse 137; Resp 18; Pulse Ox 100% ; wh 23:51 BP 109 / 85; Pulse 130; Resp 18; Pulse Ox 99% on R/A; wh 21:23 Body Mass Index 23.01 (74.84 kg, 180.34 cm) rv MDM: 22:19 ED course: patient smoking in room. Informed patient he cannot smoke in the hospital. ps1 Encouraged patient to abide by hospital policies. 23:43 Data reviewed: vital signs, nurses notes. ED course: patient becoming belligerent with ps1 staff, yelling, ETOH >200. 04/23 21:56 Order name: CBC with Diff; Complete Time: 23:43 ps1 04/23 21:56 Order name: CMP; Complete Time: 23:43 ps1 04/23 21:56 Order name: ETOH Level; Complete Time: 23:43 ps1 04/23 21:56 Order name: Acetaminophen; Complete Time: 23:43 ps1 04/23 21:56 Order name: Salicylate; Complete Time: 23:43 ps1 04/23 21:56 Order name: Lipase; Complete Time: 23:43 ps1 04/23 21:56 Order name: NPO; Complete Time: 21:59 ps1 04/23 21:56 Order name: Lactate; Complete Time: 23:43 ps1 04/23 23:52 Order name: UDS em1 04/23 23:58 Order name: Urine Dipstick--Ancillary (enter results) em1 04/23 23:58 Order name: Urine Dipstick-Ancillary (obtain specimen); Complete Time: 23:59 em1 Administered Medications: 22:00 Drug: Ativan 2 mg Route: IVP; Site: right antecubital; 04/24 00:19 Follow up: Response: No adverse reaction; Anxiety unchanged; RASS: Agitated (+2) 04/23 22:00 Drug: NS 0.9% 1000 ml Route: IV; Rate: 1 bolus; Site: right antecubital; 04/24 00:19 Follow up: Response: No adverse reaction; IV Status: Completed infusion wh 00:22 Not Given (Patient Refused): TORadol 30 mg IVP once rv 00:22 Not Given (Patient Refused): NS 0.9% 1000 ml IV at 1 bolus Per protocol; 1000 mL bolus rv Disposition: 04/24/19 00:18 Patient has left against medical advice. - Patients states they are going to Home. - Condition is Stable. Signatures: Dispatcher [employer] Elliott Vee em1 Ashlyn Isaac Gerson Boudreaux MD MD ps1 Juan J Silva RN RN rv Corrections: (The following items were deleted from the chart) 00:18 00:18 04/24/2019 00:18 Patients has left against medical advice. Patient states they wh are going to Home. Condition is Stable. 00:23 00:18 04/24/2019 00:18 Patients has left against medical advice. Patient states they rv are going to Home. Condition is Stable.
[2019-04-24 01:12] VITALS: TEMP 99.1
[2019-04-24 01:15] VITALS: BP 109/85; O2SAT 99
== END 2019-04-24 00:23 | disposition left against medical advice (07) ==
LOC: ER 21:13
DX: R10.13 Epigastric pain (principal); F10.10 Alcohol abuse, uncomplicated; I10 Essential (primary) hypertension; Z72.0 Tobacco use
CPT/HCPCS: 36415; 80053; 80307; 80320; 80329; 81003; 83605; 83690; 85025; 96361; 96374; 99283; J7030

== ENCOUNTER 2019-04-24 00:31 | Emergency (ER) | payer SELFPAY ==
--- NOTE | 2019-04-24 01:43 | EDPHYS ---
Physician Documentation [facility] Name: Jonathan Gutierrez Age: 33 yrs Sex: Male : 1985 Arrival Date: 04/24/2019 Time: 00:32 Bed 20 Private MD: ED Physician Gerson Boudreaux HPI: 04/24 01:34 This 33 yrs old Male presents to ER via Ambulatory with complaints of ps1 Abdominal Pain. 01:34 Patient recently seen and evaluated by myself. Signed AMA paperwork after being ps1 beligerrent in the ED. Smoking in the ED room. He was previously evaluated for pancreatitis in [place] by two other hospitals. Discharged with T3. Patient is tolerating PO. He was intoxicated ETOH >200. He however was having normal conversation (cogent just argumentative and demanding) Police were notified 2/2 his behavior. He signed back into ED for continued evaluation. He has mild pancreatitis, enzymes elevated but he is able to tolerate PO and has rx for pain medication. . Historical: - Allergies: 00:49 No Known Allergies; - Home Meds: 00:49 Folic Acid Oral [Active]; Thiamine Oral [Active]; - PMHx: 00:49 etoh abuse; Hypertension; liver "spot"; Pancreatitis; - Immunization history:: Adult Immunizations unknown. - Social history:: Smoking status: Patient uses tobacco products. - Ebola Screening: : Patient negative for fever greater than or equal to 101.5 degrees Fahrenheit, and additional compatible Ebola Virus Disease symptoms Patient denies exposure to infectious person. ROS: 01:34 Constitutional: Negative for fever, chills, and weight loss, Eyes: Negative for injury, ps1 pain, redness, and discharge, Cardiovascular: Negative for chest pain, palpitations, and edema, Respiratory: Negative for shortness of breath, cough, wheezing, and pleuritic chest pain, MS/Extremity: Negative for injury and deformity, Skin: Negative for injury, rash, and discoloration, Neuro: Negative for headache, weakness, numbness, tingling, and seizure. 01:34 Abdomen/GI: Positive for abdominal pain. Exam: 01:34 Head/Face: Normocephalic, atraumatic. Respiratory: Lungs have equal breath sounds ps1 bilaterally, clear to auscultation and percussion. No rales, rhonchi or wheezes noted. No increased work of breathing, no retractions or nasal flaring. Abdomen/GI: Soft, non-tender, with normal bowel sounds. No distension or tympany. No guarding or rebound. No evidence of tenderness throughout. Skin: Warm, dry with normal turgor. Normal color with no rashes, no lesions, and no evidence of cellulitis. MS/ Extremity: Pulses equal, no cyanosis. Neurovascular intact. Full, normal range of motion. Neuro: Awake and alert, GCS 15, oriented to person, place, time, and situation. Cranial nerves II-XII grossly intact. Sensory grossly intact. 01:34 Constitutional: The patient appears in no acute distress, alert, smells of alcohol. 01:34 Cardiovascular: Rate: tachycardic, Rhythm: regular, Pulses: no pulse deficits are appreciated. Vital Signs: 00:54 BP 117 / 74; Pulse 123; Resp 18; Temp 98.4; Pulse Ox 99% on R/A; wh 02:15 BP 122 / 67; Pulse 122; Resp 18; Pulse Ox 97% on R/A; wh 03:45 BP 98 / 61; Pulse 118; Resp 18; Pulse Ox 97% on R/A; wh MDM: 01:16 Patient medically screened. ps1 01:42 Data reviewed: vital signs, nurses notes, diagnostic data from outside facility, old ps1 medical records, lab test result(s), and as a result, I will discharge patient. Counseling: I had a detailed discussion with the patient and/or guardian regarding: the historical points, exam findings, and any diagnostic results supporting the discharge/admit diagnosis, lab results, the need for outpatient follow up, to return to the emergency department if symptoms worsen or persist or if there are any questions or concerns that arise at home. ED course: Patient was resting comfortably in no acute distress (sleeping). + ETOH. Tachycardia likely 2/2 EtOH intoxication. Fluids given. Patient was able to tolerate PO without issue. Pain controlled and has prescriptions. . 04/24 00:50 Order name: PO challenge; Complete Time: 00:54 ps1 Administered Medications: No medications were administered Disposition: 04/24/19 01:41 Discharged to Home. Impression: Alcohol consumption above sensible limits, Mild pancreatitis. - Condition is Stable. - Discharge Instructions: Alcohol Use Disorder, Acute Pancreatitis, Uaxw-le-Plae. - Medication Reconciliation Form, Thank You Letter, Antibiotic Education, Prescription Opioid Use form. - Follow up: Private Physician; When: As needed; Reason: Recheck today's complaints, Continuance of care, Re-evaluation by your physician. Follow up: Emergency Department; When: As needed; Reason: Fever > 102 F, Worsening of condition. - Problem is an ongoing problem. - Symptoms have improved. Signatures: Sho Jimenez RN RN fc Habalo, Winsy wh Singer, Phillip, MD MD ps1 Corrections: (The following items were deleted from the chart) 04:23 01:41 04/24/2019 01:41 Discharged to Home. Impression: Alcohol consumption above sensible limits; Mild pancreatitis. Condition is Stable. Forms are Medication Reconciliation Form, Thank You Letter, Antibiotic Education, Prescription Opioid Use. Follow up: Private Physician; When: As needed; Reason: Recheck today's complaints, Continuance of care, Re-evaluation by your physician. Follow up: Emergency Department; When: As needed; Reason: Fever > 102 F, Worsening of condition. Problem is an ongoing problem. Symptoms have improved. ps1
--- NOTE | 2019-04-24 01:43 | ER ---
Nurse's Notes [facility] Name: Jonathan Gutierrez Age: 33 yrs Sex: Male : 1985 Arrival Date: 04/24/2019 Time: 00:32 Bed 20 Private MD: Diagnosis: Alcohol consumption above sensible limits;Mild pancreatitis Presentation: 04/24 00:45 Presenting complaint: Patient states: C/O RUQ abd pain since 2-3 days ago. Pt has Hx of Chronic Pancreatitis and Alcohol Abuse. Per Pt last use of alcohol is 3 days ago. Transition of care: patient was not received from another setting of care. Onset of symptoms was April 24, 2019. Risk Assessment: Do you want to hurt yourself or someone else? Patient reports no desire to harm self or others. Initial Sepsis Screen: Does the patient meet any 2 criteria? HR > 90 bpm. Does the patient have a suspected source of infection? No. Patient's initial sepsis screen is negative. Care prior to arrival: None. 00:45 Method Of Arrival: Ambulatory 00:45 Acuity: NEO 3 Historical: - Allergies: 00:49 No Known Allergies; - Home Meds: 00:49 Folic Acid Oral [Active]; Thiamine Oral [Active]; - PMHx: 00:49 etoh abuse; Hypertension; liver "spot"; Pancreatitis; - Immunization history:: Adult Immunizations unknown. - Social history:: Smoking status: Patient uses tobacco products. - Ebola Screening: : Patient negative for fever greater than or equal to 101.5 degrees Fahrenheit, and additional compatible Ebola Virus Disease symptoms Patient denies exposure to infectious person. Screenin:47 Abuse screen: Denies threats or abuse. Denies injuries from another. Nutritional screening: No deficits noted. Tuberculosis screening: No symptoms or risk factors identified. Fall Risk None identified. Assessment: 00:47 General: Appears in no apparent distress. Behavior is cooperative, appropriate for age, wh Smells of alcohol. Pain: Complains of pain in right upper quadrant Pain does not radiate. Pain currently is 8 out of 10 on a pain scale. Quality of pain is described as aching, Pain began 2-3 days ago. Neuro: Level of Consciousness is awake, alert, obeys commands. Cardiovascular: Heart tones S1 S2. Respiratory: Airway is patent Respiratory effort is even, unlabored, Respiratory pattern is regular, symmetrical, Breath sounds are clear bilaterally. GI: Abdomen is flat, non-distended, Bowel sounds present X 4 quads. Abd is soft and non tender X 4 quads. : No signs and/or symptoms were reported regarding the genitourinary system. EENT: No signs and/or symptoms were reported regarding the EENT system. Derm: Skin is intact, is healthy with good turgor, Skin is pink, warm \\T\\ dry. normal. Derm: Musculoskeletal: Circulation, motion, and sensation intact. 01:30 Reassessment: Patient appears in no apparent distress at this time. No changes from previously documented assessment. Patient and/or family updated on plan of care and expected duration. Pain level reassessed. Patient is alert, oriented x 3, equal unlabored respirations, skin warm/dry/pink. Pt sleeping. tolerated PO challenged. Patient denies pain at this time. 02:23 Reassessment: Patient appears in no apparent distress at this time. No changes from previously documented assessment. Patient and/or family updated on plan of care and expected duration. Pain level reassessed. Patient is alert, oriented x 3, equal unlabored respirations, skin warm/dry/pink. Pt sleeping, Per MD. let Pt sleep and DC when he wakes up, sas developer notified. 03:53 Reassessment: Patient appears in no apparent distress at this time. No changes from previously documented assessment. Patient and/or family updated on plan of care and expected duration. Pain level reassessed. Patient is alert, oriented x 3, equal unlabored respirations, skin warm/dry/pink. Patient denies pain at this time. Vital Signs: 00:54 BP 117 / 74; Pulse 123; Resp 18; Temp 98.4; Pulse Ox 99% on R/A; wh 02:15 BP 122 / 67; Pulse 122; Resp 18; Pulse Ox 97% on R/A; wh 03:45 BP 98 / 61; Pulse 118; Resp 18; Pulse Ox 97% on R/A; ED Course: 00:32 Patient arrived in ED. ds1 00:45 Ashlyn Isaac is Primary Nurse. wh 00:47 Triage completed. wh 00:49 Arm band placed on left wrist. wh 00:50 Gerson Boudreaux MD is Attending Physician. ps1 00:50 Patient has correct armband on for positive identification. Bed in low position. Call light in reach. Side rails up X 1. Pulse ox on. NIBP on. 04:23 No provider procedures requiring assistance completed. Patient did not have IV access fc during this emergency room visit. Administered Medications: No medications were administered Outcome: 01:41 Discharge ordered by MD. ps1 04:23 Discharged to home ambulatory. fc 04:23 Condition: good 04:23 Discharge instructions given to patient, Instructed on discharge instructions, follow up and referral plans. Demonstrated understanding of instructions, follow-up care. 04:23 Patient left the ED. fc Signatures: Sho Jimenez RN RN fc Shi Hardwick ds1 Ashlyn Isaac Gerson Boudreaux MD MD ps1 Corrections: (The following items were deleted from the chart) 02:23 01:30 Reassessment: Patient appears in no apparent distress at this time. No changes wh from previously documented assessment. Patient and/or family updated on plan of care and expected duration. Pain level reassessed. Pt sleeping. tolerated PO challenged. Patient denies pain at this time. wh 02:24 02:23 Reassessment: Patient appears in no apparent distress at this time. No changes wh from previously documented assessment. Patient and/or family updated on plan of care and expected duration. Pain level reassessed. Patient is alert, oriented x 3, equal unlabored respirations, skin warm/dry/pink. wh
[2019-04-24 04:28] VITALS: TEMP 98.4
[2019-04-24 04:29] VITALS: O2SAT 97
[2019-04-24 04:30] VITALS: BP 98/61
== END 2019-04-24 04:23 | disposition home or self-care (01) ==
LOC: ER 00:31
DX: K85.90 Acute pancreatitis without necrosis or infection, unspecified (principal); I10 Essential (primary) hypertension; Z72.0 Tobacco use
CPT/HCPCS: 99283

== ENCOUNTER 2019-05-25 15:54 | Emergency (ER) | payer SELFPAY ==
[2019-05-25] MEDS ORDERED: THIAMINE 200 MG/2 ML INJ ONE (16:40)
[2019-05-25] MEDS ORDERED: Ringers Lactate 1,000 ML IV ONE (16:41)
[2019-05-25] MEDS ORDERED: DIAZEPAM 10 MG/2 ML INJ SYRINGE ONE (16:41)
[2019-05-25 16:52] LABS: Absolute Lymphocytes (CBC) 4.4 K/uL (0.7-4.9); Basophils % 0.7 % (0-1.3); Hematocrit 39.8 % (39.6-49.0); MPV 7.4 fL (7.6-11.3); RBC Red Blood Cell Count 4.59 M/uL (4.33-5.43)
[2019-05-25 16:56] LABS: Protime INR 1.11
[2019-05-25 17:14] LABS: ALT/SGPT 36 U/L (12-78); AST/SGOT 28 U/L (15-37); Albumin 3.9 g/dL (3.4-5.0); Alkaline Phosphatase 107 U/L (45-117); BUN Blood Urea Nitrogen 15 mg/dL (7-18); Bicarbonate 24 mmol/L (21-32); Bilirubin Direct 0.1 mg/dL (0-0.2); Bilirubin Total 0.2 mg/dL (0.2-1.0); Glucose Level 104 mg/dL (74-106); Lipase 120 U/L (73-393); Potassium 3.5 mmol/L (3.5-5.1); Protein, Total 7.7 g/dL (6.4-8.2); Sodium Level 148 mmol/L (136-145)
--- NOTE | 2019-05-25 17:22 | RAD REPORT ---
EXAM DESCRIPTION: Claude Single View05/25/2019 4:59 pm CLINICAL HISTORY: Chest pain COMPARISON: February 2019 FINDINGS: The lungs appear clear of acute infiltrate. The heart is normal size IMPRESSION: No acute abnormalities displayed
[2019-05-25] MEDS ORDERED: FAMOTIDINE 20 MG/2 ML VIAL IV ONE (18:04)
[2019-05-25] MEDS ORDERED: NA CHLORIDE 0.9% 1,000 ML ONE (18:04)
[2019-05-25] MEDS ORDERED: ONDANSETRON 4 MG/2 ML VIAL ONE (18:18)
[2019-05-25] MEDS ORDERED: MORPHINE 4 MG/ML SYR ONE (18:18)
--- NOTE | 2019-05-25 18:18 | RAD REPORT ---
EXAM DESCRIPTION: CT - Abdomen Pelvis W Contrast - 05/25/2019 5:44 pm CLINICAL HISTORY: Abdominal pain COMPARISON: February 2019 TECHNIQUE: Computed axial tomography of the abdomen pelvis was obtained. 100 cc Isovue-300 was admin istered intravenously. Oral contrast was not requested which limits evaluation of bowel. All CT scans are performed using dose optimization technique as appropriate and may include automated exposure control or mA/KV adjustment according to patient size. FINDINGS: Pancreas is mildly heterogeneous with mild stranding in the peripancreatic fat. A pseudocy st is not noted. Varices are present throughout the abdomen. Mild lymphadenopathy Liver, spleen and adrenals unremarkable Small nonobstructing bilateral renal calculi No evidence of diverticulitis . IMPRESSION: Mild pancreatitis
--- NOTE | 2019-05-25 18:57 | ER ---
Nurse's Notes [facility] Name: Jonathan Gutierrez Age: 33 yrs Sex: Male : 1985 Arrival Date: 05/25/2019 Time: 15:56 Bed 7 Private MD: Diagnosis: Gastritis and duodenitis Presentation: 05/25 16:03 Presenting complaint: Patient states: I have pancreatitis and I drank a bottle of vodka la1 last night. I am in a lot of pain and vomiting. Transition of care: patient was not received from another setting of care. Onset of symptoms was May 25, 2019. Risk Assessment: Do you want to hurt yourself or someone else? Patient reports no desire to harm self or others. Initial Sepsis Screen: Does the patient meet any 2 criteria? No. Patient's initial sepsis screen is negative. Does the patient have a suspected source of infection? No. Patient's initial sepsis screen is negative. Care prior to arrival: None. 16:03 Method Of Arrival: Ambulatory la1 16:03 Acuity: NEO 2 la1 Historical: - Allergies: 16:04 No Known Allergies; la1 - PMHx: 16:04 etoh abuse; Hypertension; liver "spot"; Pancreatitis; la1 - PSHx: 16:04 None; la1 - Immunization history:: Adult Immunizations up to date. - Social history:: Smoking status: Patient uses tobacco products, smokes one pack cigarettes per day. Patient/guardian denies using alcohol, street drugs, The patient lives with family. - Ebola Screening: : No symptoms or risks identified at this time. - Family history:: not pertinent. Screenin:48 Abuse screen: Denies threats or abuse. Denies injuries from another. Nutritional hb screening: No deficits noted. Tuberculosis screening: No symptoms or risk factors identified. Fall Risk None identified. Assessment: 16:15 General: Appears in no apparent distress. well groomed, well developed, well nourished, sg Behavior is calm, cooperative, appropriate for age. Pain: Complains of pain in abdomen Quality of pain is described as aching. Neuro: Level of Consciousness is awake, alert, obeys commands, Oriented to person, place, time, Nursing Techn are equal bilaterally Moves all extremities. Full function Speech is normal, Facial symmetry appears normal. Cardiovascular: Heart tones S1 S2 present Patient's skin is warm and dry. Chest pain is denied. Respiratory: Airway is patent Respiratory effort is even, unlabored, Respiratory pattern is regular, symmetrical. GI: Bowel sounds present X 4 quads. Abd is soft X 4 quads Reports nausea, Pain is 8 out of 10 on a pain scale. : No signs and/or symptoms were reported regarding the genitourinary system. EENT: No signs and/or symptoms were reported regarding the EENT system. Derm: Skin is pink, warm \\T\\ dry. Musculoskeletal: Circulation, motion, and sensation intact. Range of motion: intact in all extremities. 17:02 Reassessment: Patient appears in no apparent distress at this time. sg 17:25 Reassessment: Patient appears in no apparent distress at this time. No changes from sg previously documented assessment. pt supine in bed with HOB elevated 35 degrees, eyes closed with even and unlabored resp. 18:29 Reassessment: Patient appears in no apparent distress at this time. Patient and/or sg family updated on plan of care and expected duration. Pain level reassessed. pt request that I speak with his mother about his results and his condition, spoke with patient mother as requested, pt mother stated understanding. Mother states she can be reached at [phone] for any problems. 18:31 Reassessment: Patient appears in no apparent distress at this time. pt reports he has sg been speaking with his brother Guillermo about his problems today, pt denies any thoughts of suicide/homicide at this time. Requests help for his drinking, a list of local services has been provided. 19:30 Reassessment: Patient attempting to find a ride for discharge;. Neuro: Level of lp1 Consciousness is awake, alert, obeys commands, Oriented to person, place, time, situation, Gait is steady. 19:30 Derm: Skin is pink, warm \\T\\ dry. lp1 Vital Signs: 16:04 BP 135 / 93; Pulse 160; Resp 16; Temp 98.1; Pulse Ox 100% on R/A; Weight 74.84 kg; la1 Height 5 ft. 11 in. (180.34 cm); 17:25 BP 119 / 75; Pulse 129; Resp 18; Pulse Ox 99% on R/A; sg 18:47 BP 127 / 85; Pulse 110; Resp 14; Pulse Ox 99% on R/A; hb 16:04 Body Mass Index 23.01 (74.84 kg, 180.34 cm) la1 ED Course: 15:56 Patient arrived in ED. mr 16:04 Triage completed. la1 16:05 Arm band placed on left wrist. la1 16:27 Wilton Amaral MD is Attending Physician. ma2 16:35 Chaka Dozier RN is Primary Nurse. sg 16:39 Initial lab(s) drawn, by me, sent to lab. Inserted saline lock: 20 gauge in right dh3 forearm, using aseptic technique. Blood collected. 16:48 Patient has correct armband on for positive identification. Placed in gown. Bed in low hb position. Call light in reach. Side rails up X 1. 17:00 Chest Single View XRAY In Process Unspecified. EDMS 17:43 CT Abd/Pelvis - IV Contrast Only In Process Unspecified. EDMS 17:44 CT completed. Patient tolerated procedure well. Patient moved back from CT. mw3 19:20 No provider procedures requiring assistance completed. IV discontinued, No lp1 redness/swelling at site. Pressure dressing applied. Administered Medications: 16:45 Drug: Thiamine 100 mg Route: IV; Rate: calculated rate; Site: right wrist; sg 16:45 Drug: Lactated Ringers Solution 1000 ml Route: IV; Rate: 250 ml/hr; Site: right wrist; sg 16:45 Drug: Valium 10 mg Route: IVP; Site: right wrist; sg 17:20 Follow up: Response: No adverse reaction sg 18:00 Drug: Pepcid 20 mg Route: IVP; Site: right wrist; sg 18:46 Follow up: Response: No adverse reaction hb 18:10 Drug: NS 0.9% 1000 ml Route: IV; Rate: 1 bolus; Site: right wrist; sg 18:23 Drug: morphine 4 mg Route: IVP; Site: right wrist; sg 18:46 Follow up: Response: No adverse reaction hb 18:24 Drug: Zofran 4 mg Route: IVP; Site: right hand; sg 18:46 Follow up: Response: No adverse reaction hb Outcome: 18:56 Discharge ordered by . ma2 19:52 Condition: stable lp1 20:04 Discharged to home in Taxi cab lp1 20:04 Discharge instructions given to patient, Instructed on discharge instructions, follow up and referral plans. medication usage, Demonstrated understanding of instructions, follow-up care, medications, Prescriptions given X 2. 20:04 Patient left the ED. lp1 Signatures: Dispatcher [employer] EDMS Chaka Dozier RN RN sg Marilu Maldonado, AMALIA Contreras RN lp1 Charles Berger RN RN la1 Leslee Fernandez RN RN Bryon, Mariah [facility] Wilton Amaral MD MD ga2 Tanja Villarreal 3 Corrections: (The following items were deleted from the chart) 18:33 18:31 Reassessment: Patient appears in no apparent distress at this time. pt reports he sg has been speaking with his brother Luis Armando about his problems today, pt denies any thoughts of suicide/homicide at this time. Requests help for his drinking, a list of local services has been provided sg
--- NOTE | 2019-05-25 18:57 | EDPHYS ---
Physician Documentation [facility] Name: Jonathan Gutierrez Age: 33 yrs Sex: Male : 1985 Arrival Date: 05/25/2019 Time: 15:56 Bed 7 Private MD: ED Physician Wilton Amaral HPI: 05/25 17:01 This 33 yrs old Male presents to ER via Ambulatory with complaints of ma2 Abdominal Pain. 17:01 Onset: The symptoms/episode began/occurred gradually, 1 week(s) ago. Severity of ma2 symptoms: At their worst the symptoms were moderate. The patient has experienced similar episodes in the past. Historical: - Allergies: 16:04 No Known Allergies; la1 - PMHx: 16:04 etoh abuse; Hypertension; liver "spot"; Pancreatitis; la1 - PSHx: 16:04 None; la1 - Immunization history:: Adult Immunizations up to date. - Social history:: Smoking status: Patient uses tobacco products, smokes one pack cigarettes per day. Patient/guardian denies using alcohol, street drugs, The patient lives with family. - Ebola Screening: : No symptoms or risks identified at this time. - Family history:: not pertinent. ROS: 17:01 Constitutional: Negative for fever, chills, and weight loss, Cardiovascular: Negative ma2 for chest pain, palpitations, and edema, Respiratory: Negative for shortness of breath, cough, wheezing, and pleuritic chest pain, Back: Negative for injury and pain, MS/Extremity: Negative for injury and deformity, Skin: Negative for injury, rash, and discoloration, Neuro: Negative for headache, weakness, numbness, tingling, and seizure. 17:01 Abdomen/GI: Positive for abdominal pain, nausea and vomiting, Negative for diarrhea, abdominal distension, rectal bleeding, bowel incontinence. 17:01 All other systems are negative. Exam: 17:01 Constitutional: This is a well developed, well nourished patient who is awake, alert, ma2 and in no acute distress. Chest/axilla: Normal chest wall appearance and motion. Nontender with no deformity. No lesions are appreciated. Cardiovascular: tachycardia and rhythm with a normal S1 and S2. No gallops, murmurs, or rubs. Normal PMI, no JVD. No pulse deficits. Respiratory: Lungs have equal breath sounds bilaterally, clear to auscultation and percussion. No rales, rhonchi or wheezes noted. No increased work of breathing, no retractions or nasal flaring. Abdomen/GI: Soft, non-tender, with normal bowel sounds. No distension or tympany. No guarding or rebound. No evidence of tenderness throughout. MS/ Extremity: Pulses equal, no cyanosis. Neurovascular intact. Full, normal range of motion. Neuro: Awake and alert, GCS 15, oriented to person, place, time, and situation. Cranial nerves II-XII grossly intact. Motor strength 5/5 in all extremities. Sensory grossly intact. Cerebellar exam normal. Normal gait. Vital Signs: 16:04 BP 135 / 93; Pulse 160; Resp 16; Temp 98.1; Pulse Ox 100% on R/A; Weight 74.84 kg; la1 Height 5 ft. 11 in. (180.34 cm); 17:25 BP 119 / 75; Pulse 129; Resp 18; Pulse Ox 99% on R/A; sg 18:47 BP 127 / 85; Pulse 110; Resp 14; Pulse Ox 99% on R/A; hb 16:04 Body Mass Index 23.01 (74.84 kg, 180.34 cm) la1 MDM: 16:27 Patient medically screened. ma2 17:01 Differential Diagnosis tachycardia, alcohol withdrawal vs dehydration, pancreatitis . ma2 18:56 Data reviewed: vital signs, nurses notes. Counseling: I had a detailed discussion with ma2 the patient and/or guardian regarding: the historical points, exam findings, and any diagnostic results supporting the discharge/admit diagnosis, the presence of at least one elevated blood pressure reading (>120/80) during this emergency department visit, the need for outpatient follow up. Response to treatment: the patient's symptoms have resolved after treatment. 05/25 16:27 Order name: Acetaminophen; Complete Time: 17:20 snw 05/25 16:27 Order name: Basic Metabolic Panel; Complete Time: 17:20 snw 05/25 16:27 Order name: CBC with Diff; Complete Time: 17:00 snw 05/25 16:27 Order name: ETOH Level; Complete Time: 17:20 snw 05/25 16:27 Order name: Hepatic Function; Complete Time: 17:20 snw 05/25 16:27 Order name: PT-INR; Complete Time: 17:00 snw 05/25 16:27 Order name: Ptt, Activated; Complete Time: 17:00 snw 05/25 16:27 Order name: Salicylate; Complete Time: 17:08 snw 05/25 16:27 Order name: Lipase; Complete Time: 17:20 snw 05/25 16:27 Order name: AMMONIA; Complete Time: 17:08 snw 05/25 16:27 Order name: Chest Single View XRAY snw 05/25 17:21 Order name: CT Abd/Pelvis - IV Contrast Only ma2 05/25 16:27 Order name: EKG; Complete Time: 16:28 snw 05/25 16:27 Order name: EKG - Nurse/Tech; Complete Time: 16:47 snw 05/25 16:27 Order name: IV Saline Lock; Complete Time: 16:47 snw 05/25 16:27 Order name: Labs collected and sent; Complete Time: 16:47 snw Administered Medications: 16:45 Drug: Thiamine 100 mg Route: IV; Rate: calculated rate; Site: right wrist; sg 16:45 Drug: Lactated Ringers Solution 1000 ml Route: IV; Rate: 250 ml/hr; Site: right wrist; sg 16:45 Drug: Valium 10 mg Route: IVP; Site: right wrist; sg 17:20 Follow up: Response: No adverse reaction sg 18:00 Drug: Pepcid 20 mg Route: IVP; Site: right wrist; sg 18:46 Follow up: Response: No adverse reaction hb 18:10 Drug: NS 0.9% 1000 ml Route: IV; Rate: 1 bolus; Site: right wrist; sg 18:23 Drug: morphine 4 mg Route: IVP; Site: right wrist; sg 18:46 Follow up: Response: No adverse reaction hb 18:24 Drug: Zofran 4 mg Route: IVP; Site: right hand; sg 18:46 Follow up: Response: No adverse reaction hb Disposition: 05/25/19 18:56 Discharged to Home. Impression: Gastritis and duodenitis. - Condition is Stable. - Discharge Instructions: Gastritis, Adult. - Prescriptions for Tylenol- Codeine #3 300-30 mg Oral Tablet - take 2 tablet by ORAL route every 6 hours As needed; 6 tablet. Pepcid 20 mg Oral Tablet - take 1 tablet by ORAL route once daily; 20 tablet. - Medication Reconciliation Form, Thank You Letter, Antibiotic Education, Prescription Opioid Use form. - Follow up: Private Physician; When: Tomorrow; Reason: Continuance of care. Signatures: Dispatcher [employer] EDChaka Bragg RN RN sg Danay Veloz, CADDIE-C CADDIE-Csnw Diane Mccoy RN RN lp1 Charles Berger RN RN la1 Wilton Amaral MD MD ma2 Leslee Fernandez RN Corrections: (The following items were deleted from the chart) 20:04 18:56 05/25/2019 18:56 Discharged to Home. Impression: Gastritis and duodenitis. lp1 Condition is Stable. Forms are Medication Reconciliation Form, Thank You Letter, Antibiotic Education, Prescription Opioid Use. Follow up: Private Physician; When: Tomorrow; Reason: Continuance of care. ma2
[2019-05-25 20:16] VITALS: TEMP 98.1
[2019-05-25 20:17] VITALS: O2SAT 99
[2019-05-25 20:19] VITALS: BP 127/85
--- OUTSIDE RECORDS SUMMARY | 2019-05-26 07:14 | XMS REPORT ---
:1985 [facility] Address [address] [place] [address] Care Team Providers Name Role Phone DMITRI GIBSON Unavailable Unavailable JULES YAÑEZ Unavailable Unavailable CHON JACOME Unavailable Unavailable MIKAYLA MENDEZ Unavailable Unavailable YENNY NELSON Unavailable Unavailable ИВАН REMY Unavailable Unavailable Problems This patient has no known problems. Allergies, Adverse Reactions, Alerts This patient has no known allergies or adverse reactions. Medications This patient has no known medications. Results Test Description Test Time Test Comments Text Results Atomic Results Result Comments LIPASE 2019-03-24 03:05:00 Test Item Value Reference Range Comments LIPASE (BEAKER) (test xqnm=684) 257 U/L 8-78 BASIC METABOLIC [id number] 03:05:00 Test Item Value Reference Range Comments SODIUM (BEAKER) (test 136 meq/L 136-145 esrw=099) POTASSIUM (BEAKER) (test 4.5 meq/L 3.5-5.1 Specimen slightly qqyk=949) hemolyzed CHLORIDE (BEAKER) (test 104 meq/L 98-107 uzat=917) CO2 (BEAKER) (test 25 meq/L 22-29 anzq=133) BLOOD UREA NITROGEN 5 mg/dL 7-21 (BEAKER) (test iizo=804) CREATININE (BEAKER) (test 0.57 mg/dL 0.57-1.25 Specimen slightly hnav=168) hemolyzed GLUCOSE RANDOM (BEAKER) 87 mg/dL 70-105 (test rxdw=178) CALCIUM (BEAKER) (test 8.4 mg/dL 8.4-10.2 ifln=613) EGFR (BEAKER) (test 166 mL/min/1.73 sq m ESTIMATED GFR IS NOT sdxo=0044) ACCURATE CREATININE CLEARANCE IN PREDICTING GLOMERULAR FILTRATION RATE. ESTIMATED GFR IS NOT APPLICABLE FOR DIALYSIS PATIENTS. BASIC METABOLIC [id number] 04:41:00 Test Item Value Reference Range Comments SODIUM (BEAKER) (test 134 meq/L 136-145 icfa=405) POTASSIUM (BEAKER) (test 3.9 meq/L 3.5-5.1 Specimen slightly twgg=234) hemolyzed CHLORIDE (BEAKER) (test 102 meq/L 98-107 gkew=168) CO2 (BEAKER) (test 26 meq/L 22-29 ogfr=135) BLOOD UREA NITROGEN 3 mg/dL 7-21 (BEAKER) (test jdxw=566) CREATININE (BEAKER) (test 0.50 mg/dL 0.57-1.25 Specimen slightly itwf=189) hemolyzed GLUCOSE RANDOM (BEAKER) 95 mg/dL 70-105 (test kdqj=895) CALCIUM (BEAKER) (test 7.9 mg/dL 8.4-10.2 xije=967) EGFR (BEAKER) (test 193 mL/min/1.73 sq m ESTIMATED GFR IS NOT vpek=3108) ACCURATE CREATININE CLEARANCE IN PREDICTING GLOMERULAR FILTRATION RATE. ESTIMATED GFR IS NOT APPLICABLE FOR DIALYSIS PATIENTS. [id number] 04:31:00 Test Item Value Reference Range Comments LIPASE (BEAKER) (test eznj=167) 334 U/L 8-78 [id number] 03:00:00 Test Item Value Reference Range Comments TROPONIN I (BEAKER) (test gcxl=719) < ng/mL 0.00-0.03 Troponin I (TnI) levels must be interpreted in the context of the presenting symptoms and the clinical findings. Elevated TnI levels indicate myocardial damage, but are not specific for ischemic heart disease. Elevated TnI levels are seen in patients with other cardiac conditions (including myocarditis and congestive heart failure), and slight TnI elevations occur in patients with other conditions, including sepsis, renal failure, acidosis, acute neurological disease, and persistent tachyarrhythmia.[id number] 02:54:00 Test Item Value Reference Range Comments MAGNESIUM (BEAKER) (test 1.9 mg/dL 1.6-2.6 Specimen slightly hemolyzed glbr=610) BASIC METABOLIC [id number] 02:54:00 Test Item Value Reference Range Comments SODIUM (BEAKER) (test 136 meq/L 136-145 codo=496) POTASSIUM (BEAKER) (test 3.8 meq/L 3.5-5.1 Specimen slightly gned=171) hemolyzed CHLORIDE (BEAKER) (test 100 meq/L 98-107 vxjo=914) CO2 (BEAKER) (test 28 meq/L 22-29 nvcm=618) BLOOD UREA NITROGEN 3 mg/dL 7-21 (BEAKER) (test dyyz=953) CREATININE (BEAKER) (test 0.56 mg/dL 0.57-1.25 Specimen slightly whqu=883) hemolyzed GLUCOSE RANDOM (BEAKER) 111 mg/dL 70-105 (test mdes=238) CALCIUM (BEAKER) (test 8.3 mg/dL 8.4-10.2 ojhl=149) EGFR (BEAKER) (test 169 mL/min/1.73 sq m ESTIMATED GFR IS NOT xvlv=7697) ACCURATE CREATININE CLEARANCE IN PREDICTING GLOMERULAR FILTRATION RATE. ESTIMATED GFR IS NOT APPLICABLE FOR DIALYSIS PATIENTS. [id number] 02:54:00 Test Item Value Reference Range Comments LIPASE (BEAKER) (test ghwh=701) 755 U/L 8-78 CBC W/PLT COUNT & AUTO [id number] 02:33:00 Test Item Value Reference Range Comments WHITE BLOOD CELL COUNT (BEAKER) (test jqkc=788) 5.7 K/ L 3.5-10.5 RED BLOOD CELL COUNT (BEAKER) (test yffi=034) 3.90 M/ L 4.63-6.08 HEMOGLOBIN (BEAKER) (test kztt=522) 12.0 GM/DL 13.7-17.5 HEMATOCRIT (BEAKER) (test mnei=891) 36.5 % 40.1-51.0 MEAN CORPUSCULAR VOLUME (BEAKER) (test osoz=770) 93.6 fL 79.0-92.2 MEAN CORPUSCULAR HEMOGLOBIN (BEAKER) (test 30.8 pg 25.7-32.2 uviw=000) MEAN CORPUSCULAR HEMOGLOBIN CONC (BEAKER) (test 32.9 GM/DL 32.3-36.5 dswy=252) RED CELL DISTRIBUTION WIDTH (BEAKER) (test 13.6 % 11.6-14.4 qvvm=019) PLATELET COUNT (BEAKER) (test aebo=053) 155 K/CU MM 150-450 MEAN PLATELET VOLUME (BEAKER) (test pbcc=101) 9.4 fL 9.4-12.4 NUCLEATED RED BLOOD CELLS (BEAKER) (test 0 /100 WBC 0-0 xnms=748) NEUTROPHILS RELATIVE PERCENT (BEAKER) (test 70 % hgvx=409) LYMPHOCYTES RELATIVE PERCENT (BEAKER) (test 19 % unvk=783) MONOCYTES RELATIVE PERCENT (BEAKER) (test 8 % skms=305) EOSINOPHILS RELATIVE PERCENT (BEAKER) (test 2 % swsa=603) BASOPHILS RELATIVE PERCENT (BEAKER) (test 1 % ihoz=355) NEUTROPHILS ABSOLUTE COUNT (BEAKER) (test 4.03 K/ L 1.78-5.38 iifj=951) LYMPHOCYTES ABSOLUTE COUNT (BEAKER) (test 1.07 K/ L 1.32-3.57 caxd=768) MONOCYTES ABSOLUTE COUNT (BEAKER) (test 0.45 K/ L 0.30-0.82 pwqm=348) EOSINOPHILS ABSOLUTE COUNT (BEAKER) (test 0.12 K/ L 0.04-0.54 zkic=024) BASOPHILS ABSOLUTE COUNT (BEAKER) (test 0.05 K/ L 0.01-0.08 ssow=800) IMMATURE GRANULOCYTES-RELATIVE PERCENT (BEAKER) 0 % 0-1 (test aozd=4193) RAD, CHEST, 1 VIEW, NON [id number] 02:26:00Reason for exam:->pleuritic chest painShould this be performed at the bedside?->YesFINAL REPORT Chest one view. Clinical history: pleuritic chest pain Comparison: Chest radiograph 12/10/18. Technique: A single frontal view of the chest was obtained. Findings: The cardiomediastinal contours are normal. There is no focal pulmonary consolidation, pleural effusion or pneumothorax. There is no pulmonary edema. The bony thorax is unremarkable. Impression: No focalpulmonary consolidation or pneumothorax. Signed: To [facility] MDReport Verified Date/Time: 03/22/2019 02:26:18 [id number] 08:35:00 Test Item Value Reference Range Comments MAGNESIUM (BEAKER) (test 1.4 mg/dL 1.6-2.6 Specimen slightly hemolyzed eots=178) BASIC METABOLIC [id number] 08:35:00 Test Item Value Reference Range Comments SODIUM (BEAKER) (test 138 meq/L 136-145 bewg=590) POTASSIUM (BEAKER) (test 3.7 meq/L 3.5-5.1 Specimen slightly hawc=329) hemolyzed CHLORIDE (BEAKER) (test 102 meq/L 98-107 icop=038) CO2 (BEAKER) (test 23 meq/L 22-29 acix=088) BLOOD UREA NITROGEN 4 mg/dL 7-21 (BEAKER) (test lfrp=152) CREATININE (BEAKER) (test 0.48 mg/dL 0.57-1.25 Specimen slightly oofq=412) hemolyzed GLUCOSE RANDOM (BEAKER) 53 mg/dL 70-105 (test vqkp=417) CALCIUM (BEAKER) (test 8.1 mg/dL 8.4-10.2 etly=556) EGFR (BEAKER) (test 202 mL/min/1.73 sq m ESTIMATED GFR IS NOT hksv=3662) ACCURATE CREATININE CLEARANCE IN PREDICTING GLOMERULAR FILTRATION RATE. ESTIMATED GFR IS NOT APPLICABLE FOR DIALYSIS PATIENTS. HEPATIC FUNCTION [id number] 08:35:00 Test Item Value Reference Range Comments TOTAL PROTEIN (BEAKER) (test 6.2 gm/dL 6.0-8.3 Specimen slightly hemolyzed ghlp=011) ALBUMIN (BEAKER) (test 2.7 g/dL 3.5-5.0 Specimen slightly hemolyzed oauq=1296) BILIRUBIN TOTAL (BEAKER) (test 0.5 mg/dL 0.2-1.2 Specimen slightly hemolyzed xyza=656) BILIRUBIN DIRECT (BEAKER) (test 0.3 mg/dL 0.1-0.5 Specimen slightly hemolyzed yafo=291) ALKALINE PHOSPHATASE (BEAKER) 151 U/L 40-150 (test hlwx=677) AST (SGOT) (BEAKER) (test 64 U/L 5-34 Specimen slightly hemolyzed cqvz=657) ALT (SGPT) (BEAKER) (test 21 U/L 6-55 Specimen slightly hemolyzed wmyl=975) [id number] 08:35:00 Test Item Value Reference Range Comments LIPASE (BEAKER) (test dswy=746) 242 U/L 8-78 CBC W/PLT COUNT & AUTO [id number] 06:25:00 Test Item Value Reference Range Comments WHITE BLOOD CELL COUNT (BEAKER) (test bcql=922) 4.2 K/ L 3.5-10.5 RED BLOOD CELL COUNT (BEAKER) (test atto=210) 4.14 M/ L 4.63-6.08 HEMOGLOBIN (BEAKER) (test omqx=887) 12.7 GM/DL 13.7-17.5 HEMATOCRIT (BEAKER) (test yedg=233) 39.8 % 40.1-51.0 MEAN CORPUSCULAR VOLUME (BEAKER) (test uijr=854) 96.1 fL 79.0-92.2 MEAN CORPUSCULAR HEMOGLOBIN (BEAKER) (test 30.7 pg 25.7-32.2 klpp=975) MEAN CORPUSCULAR HEMOGLOBIN CONC (BEAKER) (test 31.9 GM/DL 32.3-36.5 arke=817) RED CELL DISTRIBUTION WIDTH (BEAKER) (test 13.5 % 11.6-14.4 myuz=659) PLATELET COUNT (BEAKER) (test oaqw=302) 186 K/CU MM 150-450 MEAN PLATELET VOLUME (BEAKER) (test tnhn=939) 10.9 fL 9.4-12.4 NUCLEATED RED BLOOD CELLS (BEAKER) (test 0 /100 WBC 0-0 ksuh=935) NEUTROPHILS RELATIVE PERCENT (BEAKER) (test 55 % honh=344) LYMPHOCYTES RELATIVE PERCENT (BEAKER) (test 31 % smjh=276) MONOCYTES RELATIVE PERCENT (BEAKER) (test 8 % mmuv=645) EOSINOPHILS RELATIVE PERCENT (BEAKER) (test 5 % ljwg=944) BASOPHILS RELATIVE PERCENT (BEAKER) (test 1 % gkhd=761) NEUTROPHILS ABSOLUTE COUNT (BEAKER) (test 2.28 K/ L 1.78-5.38 kfaz=002) LYMPHOCYTES ABSOLUTE COUNT (BEAKER) (test 1.28 K/ L 1.32-3.57 xjsk=085) MONOCYTES ABSOLUTE COUNT (BEAKER) (test 0.35 K/ L 0.30-0.82 nquv=074) EOSINOPHILS ABSOLUTE COUNT (BEAKER) (test 0.21 K/ L 0.04-0.54 cbuh=512) BASOPHILS ABSOLUTE COUNT (BEAKER) (test 0.05 K/ L 0.01-0.08 obiw=622) IMMATURE GRANULOCYTES-RELATIVE PERCENT (BEAKER) 0 % 0-1 (test josz=6191) [id number] 07:42:00 Test Item Value Reference Range Comments MAGNESIUM (BEAKER) (test hsfe=122) 1.5 mg/dL 1.6-2.6 BASIC METABOLIC [id number] 07:42:00 Test Item Value Reference Range Comments SODIUM (BEAKER) (test 140 meq/L 136-145 rsax=058) POTASSIUM (BEAKER) (test 3.3 meq/L 3.5-5.1 zhcs=077) CHLORIDE (BEAKER) (test 106 meq/L 98-107 jgga=018) CO2 (BEAKER) (test 27 meq/L 22-29 dvnv=094) BLOOD UREA NITROGEN 6 mg/dL 7-21 (BEAKER) (test nqds=642) CREATININE (BEAKER) (test 0.53 mg/dL 0.57-1.25 pveh=978) GLUCOSE RANDOM (BEAKER) 81 mg/dL 70-105 (test vcis=713) CALCIUM (BEAKER) (test 8.2 mg/dL 8.4-10.2 umjq=126) EGFR (BEAKER) (test 180 mL/min/1.73 sq m ESTIMATED GFR IS NOT afpk=6705) ACCURATE CREATININE CLEARANCE IN PREDICTING GLOMERULAR FILTRATION RATE. ESTIMATED GFR IS NOT APPLICABLE FOR DIALYSIS PATIENTS. LIPID [id number] 07:42:00 Test Item Value Reference Range Comments TRIGLYCERIDES (BEAKER) (test ytkg=875) 63 mg/dL CHOLESTEROL (BEAKER) (test bsum=437) 101 mg/dL HDL CHOLESTEROL (BEAKER) (test afvx=360) 20 mg/dL LDL CHOLESTEROL CALCULATED (BEAKER) (test 68 mg/dL ebez=777) Triglyceride Reference Range: Low Risk <150 Borderline 150- 199 High Risk 200-499 Very High Risk >=500Cholesterol Reference Range: Low Risk <200 Borderline 200-239 High Risk > 240HDL Cholesterol Reference Range: Low Risk >=60 High Risk <40LDL Cholesterol Reference Range: Optimal <100 Near Optimal 100-129 Borderline 130-159 High 160-189 Very High >=190HEPATIC FUNCTION [id number] 07:42:00 Test Item Value Reference Range Comments TOTAL PROTEIN (BEAKER) (test dmre=589) 6.1 gm/dL 6.0-8.3 ALBUMIN (BEAKER) (test tvij=8935) 2.7 g/dL 3.5-5.0 BILIRUBIN TOTAL (BEAKER) (test kedb=733) 0.6 mg/dL 0.2-1.2 BILIRUBIN DIRECT (BEAKER) (test vfaq=506) 0.4 mg/dL 0.1-0.5 ALKALINE PHOSPHATASE (BEAKER) (test sllf=810) 157 U/L 40-150 AST (SGOT) (BEAKER) (test sczp=250) 58 U/L 5-34 ALT (SGPT) (BEAKER) (test mchb=443) 21 U/L 6-55 CBC W/PLT COUNT & AUTO [id number] 05:47:00 Test Item Value Reference Range Comments WHITE BLOOD CELL COUNT (BEAKER) (test fcis=836) 4.3 K/ L 3.5-10.5 RED BLOOD CELL COUNT (BEAKER) (test zwjk=682) 3.66 M/ L 4.63-6.08 HEMOGLOBIN (BEAKER) (test kgor=146) 11.4 GM/DL 13.7-17.5 HEMATOCRIT (BEAKER) (test batm=577) 35.8 % 40.1-51.0 MEAN CORPUSCULAR VOLUME (BEAKER) (test kttu=870) 97.8 fL 79.0-92.2 MEAN CORPUSCULAR HEMOGLOBIN (BEAKER) (test 31.1 pg 25.7-32.2 jfmc=680) MEAN CORPUSCULAR HEMOGLOBIN CONC (BEAKER) (test 31.8 GM/DL 32.3-36.5 kjkc=973) RED CELL DISTRIBUTION WIDTH (BEAKER) (test 14.2 % 11.6-14.4 wmkx=100) PLATELET COUNT (BEAKER) (test jtyz=213) 170 K/CU MM 150-450 MEAN PLATELET VOLUME (BEAKER) (test mrnc=970) 9.9 fL 9.4-12.4 NUCLEATED RED BLOOD CELLS (BEAKER) (test 0 /100 WBC 0-0 igbc=425) NEUTROPHILS RELATIVE PERCENT (BEAKER) (test 55 % lqwv=990) LYMPHOCYTES RELATIVE PERCENT (BEAKER) (test 30 % spdu=058) MONOCYTES RELATIVE PERCENT (BEAKER) (test 10 % gmzn=812) EOSINOPHILS RELATIVE PERCENT (BEAKER) (test 4 % yffh=026) BASOPHILS RELATIVE PERCENT (BEAKER) (test 1 % ucjv=857) NEUTROPHILS ABSOLUTE COUNT (BEAKER) (test 2.36 K/ L 1.78-5.38 muzu=564) LYMPHOCYTES ABSOLUTE COUNT (BEAKER) (test 1.30 K/ L 1.32-3.57 xiic=425) MONOCYTES ABSOLUTE COUNT (BEAKER) (test 0.41 K/ L 0.30-0.82 ncbm=715) EOSINOPHILS ABSOLUTE COUNT (BEAKER) (test 0.18 K/ L 0.04-0.54 spyk=860) BASOPHILS ABSOLUTE COUNT (BEAKER) (test 0.03 K/ L 0.01-0.08 ndiv=012) IMMATURE GRANULOCYTES-RELATIVE PERCENT (BEAKER) 1 % 0-1 (test dnsa=6642) RAPID DRUG SCREEN, [id number] 23:57:00 Test Item Value Reference Range Comments BARBITURATE URINE (BEAKER) (test iwgo=900) Negative Negative BENZODIAZEPINE SCREEN URINE (BEAKER) (test Positive Negative yatf=836) COCAINE (METAB.) SCREEN (BEAKER) (test wykr=1440) Negative Negative METHADONE SCREEN (BEAKER) (test qzev=0656) Negative Negative OPIATE SCREEN URINE (BEAKER) (test rgin=281) Negative Negative CANNABINOID SCREEN URINE (BEAKER) (test imns=528) Positive Negative AMPH/METHAMPH SCREEN (BEAKER) (test wshs=1554) Positive Negative PHENCYCLIDINE SCREEN URINE (BEAKER) (test ally=554) Negative Negative DRUG CUTOFF CONC.Cocaine 300 ng/mL Cannabinoid 50 ng/mLBenzodiazepine 200 ng/mLBarbiturate 200 ng/ mLPhencyclidine 25 ng/mLOpiate 300 ng/mLMethadone 300 ng/mLAmphetamine/ 1000 ng/mL MethamphetamineThis assay provides an unconfirmed qualitative test result for the clinical management of patients in emergency situations. Chain of custody not maintained. Some pvnt-lfz-bmkzinh medications, as well as adulterants, may cause inaccurate results. Clinical correlation should be applied. A more comprehensivedrug screen or confirmation of a detected drug may be performed upon request.BASIC METABOLIC [id number] 23:23:00 Test Item Value Reference Range Comments SODIUM (BEAKER) (test 139 meq/L 136-145 nkin=567) POTASSIUM (BEAKER) (test 3.1 meq/L 3.5-5.1 dinf=267) CHLORIDE (BEAKER) (test 103 meq/L 98-107 civr=540) CO2 (BEAKER) (test 28 meq/L 22-29 nbus=057) BLOOD UREA NITROGEN 8 mg/dL 7-21 (BEAKER) (test srbh=654) CREATININE (BEAKER) (test 0.60 mg/dL 0.57-1.25 znkg=115) GLUCOSE RANDOM (BEAKER) 92 mg/dL 70-105 (test dzmx=740) CALCIUM (BEAKER) (test 8.6 mg/dL 8.4-10.2 tzgu=641) EGFR (BEAKER) (test 156 mL/min/1.73 sq m ESTIMATED GFR IS NOT uqhr=7692) ACCURATE CREATININE CLEARANCE IN PREDICTING GLOMERULAR FILTRATION RATE. ESTIMATED GFR IS NOT APPLICABLE FOR DIALYSIS PATIENTS. HEPATIC FUNCTION [id number] 23:23:00 Test Item Value Reference Range Comments TOTAL PROTEIN (BEAKER) (test uhgk=623) 7.1 gm/dL 6.0-8.3 ALBUMIN (BEAKER) (test pqin=5084) 3.2 g/dL 3.5-5.0 BILIRUBIN TOTAL (BEAKER) (test ceuv=491) 0.5 mg/dL 0.2-1.2 BILIRUBIN DIRECT (BEAKER) (test pmhy=501) 0.4 mg/dL 0.1-0.5 ALKALINE PHOSPHATASE (BEAKER) (test phsq=279) 187 U/L 40-150 AST (SGOT) (BEAKER) (test xfub=382) 62 U/L 5-34 ALT (SGPT) (BEAKER) (test ylmn=175) 24 U/L 6-55 [id number] 22:57:00 Test Item Value Reference Range Comments LIPASE (BEAKER) (test qaql=339) 957 U/L 8-78 [id number] 22:57:00 Test Item Value Reference Range Comments AMYLASE (BEAKER) (test aavn=060) 391 U/L 25-125 [id number] 22:56:00 Test Item Value Reference Range Comments PROTIME (BEAKER) (test lwzb=333) 15.8 seconds 11.9-14.2 INR (BEAKER) (test iipp=669) 1.3 <=5.9 PARTIAL THROMBOPLASTIN TIME (BEAKER) (test 30.9 seconds 22.5-36.0 rctq=457) Effective 12/11/2018: PT Reference Range ChangeNew: 11.9-14.2 Previous: 11.7- 14.7RECOMMENDED COUMADIN/WARFARIN INR THERAPY RANGESSTANDARD DOSE: 2.0-3.0 Includes: PROPHYLAXIS for venous thrombosis, systemic embolization; TREATMENT for venous thrombosis and/or pulmonary embolus.HIGH RISK: Target INR is2.5-3.5 for patients wiht mechanical heart valves.CBC W/PLT COUNT & AUTO [id number] 22:41:00 Test Item Value Reference Range Comments WHITE BLOOD CELL COUNT (BEAKER) (test qebn=439) 6.4 K/ L 3.5-10.5 RED BLOOD CELL COUNT (BEAKER) (test buro=260) 3.99 M/ L 4.63-6.08 HEMOGLOBIN (BEAKER) (test lito=432) 12.6 GM/DL 13.7-17.5 HEMATOCRIT (BEAKER) (test ybij=378) 39.0 % 40.1-51.0 MEAN CORPUSCULAR VOLUME (BEAKER) (test vewi=275) 97.7 fL 79.0-92.2 MEAN CORPUSCULAR HEMOGLOBIN (BEAKER) (test 31.6 pg 25.7-32.2 zctw=714) MEAN CORPUSCULAR HEMOGLOBIN CONC (BEAKER) (test 32.3 GM/DL 32.3-36.5 lsyj=369) RED CELL DISTRIBUTION WIDTH (BEAKER) (test 14.1 % 11.6-14.4 pztj=982) PLATELET COUNT (BEAKER) (test tctv=504) 187 K/CU MM 150-450 MEAN PLATELET VOLUME (BEAKER) (test hbgi=990) 9.3 fL 9.4-12.4 NUCLEATED RED BLOOD CELLS (BEAKER) (test 0 /100 WBC 0-0 xomc=734) NEUTROPHILS RELATIVE PERCENT (BEAKER) (test 68 % ykbf=440) LYMPHOCYTES RELATIVE PERCENT (BEAKER) (test 19 % aepc=426) MONOCYTES RELATIVE PERCENT (BEAKER) (test 10 % oybg=655) EOSINOPHILS RELATIVE PERCENT (BEAKER) (test 2 % ubaq=359) BASOPHILS RELATIVE PERCENT (BEAKER) (test 1 % upyl=615) NEUTROPHILS ABSOLUTE COUNT (BEAKER) (test 4.31 K/ L 1.78-5.38 dqup=079) LYMPHOCYTES ABSOLUTE COUNT (BEAKER) (test 1.21 K/ L 1.32-3.57 rqnh=703) MONOCYTES ABSOLUTE COUNT (BEAKER) (test 0.65 K/ L 0.30-0.82 kznl=770) EOSINOPHILS ABSOLUTE COUNT (BEAKER) (test 0.14 K/ L 0.04-0.54 wove=766) BASOPHILS ABSOLUTE COUNT (BEAKER) (test 0.04 K/ L 0.01-0.08 xutu=380) IMMATURE GRANULOCYTES-RELATIVE PERCENT (BEAKER) 0 % 0-1 (test smah=3343) COMPREHENSIVE METABOLIC [id number] 06:44:00 Test Item Value Reference Range Comments TOTAL PROTEIN (BEAKER) 6.2 gm/dL 6.0-8.3 (test uvqw=500) ALBUMIN (BEAKER) (test 2.7 g/dL 3.5-5.0 ztxp=6534) ALKALINE PHOSPHATASE 195 U/L 40-150 (BEAKER) (test lysa=128) BILIRUBIN TOTAL (BEAKER) 0.7 mg/dL 0.2-1.2 (test wtwr=193) SODIUM (BEAKER) (test 138 meq/L 136-145 riva=257) POTASSIUM (BEAKER) (test 3.6 meq/L 3.5-5.1 tugi=252) CHLORIDE (BEAKER) (test 102 meq/L 98-107 knet=354) CO2 (BEAKER) (test 28 meq/L 22-29 znxv=663) BLOOD UREA NITROGEN 2 mg/dL 7-21 (BEAKER) (test xljc=190) CREATININE (BEAKER) (test 0.52 mg/dL 0.57-1.25 kfow=437) GLUCOSE RANDOM (BEAKER) 103 mg/dL 70-105 (test ulxf=732) CALCIUM (BEAKER) (test 8.5 mg/dL 8.4-10.2 znvs=780) AST (SGOT) (BEAKER) (test 67 U/L 5-34 tknk=980) ALT (SGPT) (BEAKER) (test 31 U/L 6-55 ouzc=109) EGFR (BEAKER) (test 184 mL/min/1.73 sq ESTIMATED GFR IS NOT ujxs=0932) m ACCURATE CREATININE CLEARANCE IN PREDICTING GLOMERULAR FILTRATION RATE. ESTIMATED GFR IS NOT APPLICABLE FOR DIALYSIS PATIENTS. CBC W/PLT COUNT & AUTO [id number] 06:09:00 Test Item Value Reference Range Comments WHITE BLOOD CELL COUNT (BEAKER) (test sudt=757) 4.0 K/ L 3.5-10.5 RED BLOOD CELL COUNT (BEAKER) (test fxgd=213) 3.23 M/ L 4.63-6.08 HEMOGLOBIN (BEAKER) (test hrby=843) 10.6 GM/DL 13.7-17.5 HEMATOCRIT (BEAKER) (test swai=914) 33.2 % 40.1-51.0 MEAN CORPUSCULAR VOLUME (BEAKER) (test qksr=965) 102.8 fL 79.0-92.2 MEAN CORPUSCULAR HEMOGLOBIN (BEAKER) (test 32.8 pg 25.7-32.2 vkph=450) MEAN CORPUSCULAR HEMOGLOBIN CONC (BEAKER) (test 31.9 GM/DL 32.3-36.5 nppa=160) RED CELL DISTRIBUTION WIDTH (BEAKER) (test 15.5 % 11.6-14.4 oste=623) PLATELET COUNT (BEAKER) (test mzuu=645) 226 K/CU MM 150-450 MEAN PLATELET VOLUME (BEAKER) (test mmvh=175) 10.4 fL 9.4-12.4 NUCLEATED RED BLOOD CELLS (BEAKER) (test 0 /100 WBC 0-0 qnct=205) NEUTROPHILS RELATIVE PERCENT (BEAKER) (test 54 % czmm=163) LYMPHOCYTES RELATIVE PERCENT (BEAKER) (test 29 % atlc=464) MONOCYTES RELATIVE PERCENT (BEAKER) (test 9 % ccsg=734) EOSINOPHILS RELATIVE PERCENT (BEAKER) (test 6 % xlwj=875) BASOPHILS RELATIVE PERCENT (BEAKER) (test 1 % ioog=042) NEUTROPHILS ABSOLUTE COUNT (BEAKER) (test 2.17 K/ L 1.78-5.38 cexc=887) LYMPHOCYTES ABSOLUTE COUNT (BEAKER) (test 1.18 K/ L 1.32-3.57 ehjg=293) MONOCYTES ABSOLUTE COUNT (BEAKER) (test 0.37 K/ L 0.30-0.82 abjl=399) EOSINOPHILS ABSOLUTE COUNT (BEAKER) (test 0.25 K/ L 0.04-0.54 xfpe=117) BASOPHILS ABSOLUTE COUNT (BEAKER) (test 0.04 K/ L 0.01-0.08 kpmg=004) IMMATURE GRANULOCYTES-RELATIVE PERCENT (BEAKER) 0 % 0-1 (test bvzy=7804) COMPREHENSIVE METABOLIC [id number] 07:17:00 Test Item Value Reference Range Comments TOTAL PROTEIN (BEAKER) 7.3 gm/dL 6.0-8.3 (test yaew=837) ALBUMIN (BEAKER) (test 3.2 g/dL 3.5-5.0 huwg=1892) ALKALINE PHOSPHATASE 235 U/L 40-150 (BEAKER) (test fwzl=651) BILIRUBIN TOTAL (BEAKER) 0.9 mg/dL 0.2-1.2 (test lusq=920) SODIUM (BEAKER) (test 135 meq/L 136-145 crbk=812) POTASSIUM (BEAKER) (test 3.6 meq/L 3.5-5.1 skwh=989) CHLORIDE (BEAKER) (test 101 meq/L 98-107 kpjq=731) CO2 (BEAKER) (test 29 meq/L 22-29 gjoy=008) BLOOD UREA NITROGEN < mg/dL 7-21 (BEAKER) (test csua=437) CREATININE (BEAKER) (test 0.56 mg/dL 0.57-1.25 yqik=339) GLUCOSE RANDOM (BEAKER) 87 mg/dL 70-105 (test gewt=045) CALCIUM (BEAKER) (test 8.6 mg/dL 8.4-10.2 mkfs=385) AST (SGOT) (BEAKER) (test 96 U/L 5-34 dpqr=243) ALT (SGPT) (BEAKER) (test 40 U/L 6-55 pffv=208) EGFR (BEAKER) (test 169 mL/min/1.73 sq ESTIMATED GFR IS NOT zhvz=5032) m ACCURATE CREATININE CLEARANCE IN PREDICTING GLOMERULAR FILTRATION RATE. ESTIMATED GFR IS NOT APPLICABLE FOR DIALYSIS PATIENTS. CBC W/PLT COUNT & AUTO [id number] 06:05:00 Test Item Value Reference Range Comments WHITE BLOOD CELL COUNT (BEAKER) (test ehsg=820) 5.1 K/ L 3.5-10.5 RED BLOOD CELL COUNT (BEAKER) (test jjkg=278) 3.60 M/ L 4.63-6.08 HEMOGLOBIN (BEAKER) (test dgij=816) 11.7 GM/DL 13.7-17.5 HEMATOCRIT (BEAKER) (test bgml=211) 37.6 % 40.1-51.0 MEAN CORPUSCULAR VOLUME (BEAKER) (test mqtd=208) 104.4 fL 79.0-92.2 MEAN CORPUSCULAR HEMOGLOBIN (BEAKER) (test 32.5 pg 25.7-32.2 kxhv=027) MEAN CORPUSCULAR HEMOGLOBIN CONC (BEAKER) (test 31.1 GM/DL 32.3-36.5 qyey=353) RED CELL DISTRIBUTION WIDTH (BEAKER) (test 15.5 % 11.6-14.4 rtbn=379) PLATELET COUNT (BEAKER) (test tnvv=253) 250 K/CU MM 150-450 MEAN PLATELET VOLUME (BEAKER) (test hpvv=772) 10.1 fL 9.4-12.4 NUCLEATED RED BLOOD CELLS (BEAKER) (test 0 /100 WBC 0-0 uham=785) NEUTROPHILS RELATIVE PERCENT (BEAKER) (test 61 % assl=671) LYMPHOCYTES RELATIVE PERCENT (BEAKER) (test 25 % ougz=903) MONOCYTES RELATIVE PERCENT (BEAKER) (test 8 % glbc=149) EOSINOPHILS RELATIVE PERCENT (BEAKER) (test 5 % sgyn=541) BASOPHILS RELATIVE PERCENT (BEAKER) (test 1 % vgel=344) NEUTROPHILS ABSOLUTE COUNT (BEAKER) (test 3.09 K/ L 1.78-5.38 xehu=589) LYMPHOCYTES ABSOLUTE COUNT (BEAKER) (test 1.28 K/ L 1.32-3.57 qtkr=900) MONOCYTES ABSOLUTE COUNT (BEAKER) (test 0.39 K/ L 0.30-0.82 hihq=301) EOSINOPHILS ABSOLUTE COUNT (BEAKER) (test 0.25 K/ L 0.04-0.54 xazb=779) BASOPHILS ABSOLUTE COUNT (BEAKER) (test 0.05 K/ L 0.01-0.08 kxle=067) IMMATURE GRANULOCYTES-RELATIVE PERCENT (BEAKER) 0 % 0-1 (test vjhn=6173) [id number] 07:51:00 Test Item Value Reference Range Comments MAGNESIUM (BEAKER) (test wjbb=145) 1.7 mg/dL 1.6-2.6 COMPREHENSIVE METABOLIC [id number] 06:19:00 Test Item Value Reference Range Comments TOTAL PROTEIN (BEAKER) 6.1 gm/dL 6.0-8.3 (test undk=231) ALBUMIN (BEAKER) (test 2.7 g/dL 3.5-5.0 ctri=6673) ALKALINE PHOSPHATASE 214 U/L 40-150 (BEAKER) (test oqxr=807) BILIRUBIN TOTAL (BEAKER) 0.9 mg/dL 0.2-1.2 (test dror=532) SODIUM (BEAKER) (test 139 meq/L 136-145 kjah=312) POTASSIUM (BEAKER) (test 4.2 meq/L 3.5-5.1 ehcd=612) CHLORIDE (BEAKER) (test 110 meq/L 98-107 eski=337) CO2 (BEAKER) (test 24 meq/L 22-29 kfqi=812) BLOOD UREA NITROGEN < mg/dL 7-21 (BEAKER) (test fiil=920) CREATININE (BEAKER) (test 0.50 mg/dL 0.57-1.25 qhha=012) GLUCOSE RANDOM (BEAKER) 77 mg/dL 70-105 (test aosl=652) CALCIUM (BEAKER) (test 7.7 mg/dL 8.4-10.2 gchq=633) AST (SGOT) (BEAKER) (test 96 U/L 5-34 acbs=838) ALT (SGPT) (BEAKER) (test 37 U/L 6-55 pgko=189) EGFR (BEAKER) (test 193 mL/min/1.73 sq ESTIMATED GFR IS NOT obkr=0701) m ACCURATE CREATININE CLEARANCE IN PREDICTING GLOMERULAR FILTRATION RATE. ESTIMATED GFR IS NOT APPLICABLE FOR DIALYSIS PATIENTS. CBC W/PLT COUNT & AUTO [id number] 05:15:00 Test Item Value Reference Range Comments WHITE BLOOD CELL COUNT (BEAKER) (test bxcl=591) 4.8 K/ L 3.5-10.5 RED BLOOD CELL COUNT (BEAKER) (test paaa=409) 3.25 M/ L 4.63-6.08 HEMOGLOBIN (BEAKER) (test irkd=973) 10.7 GM/DL 13.7-17.5 HEMATOCRIT (BEAKER) (test eybv=697) 34.0 % 40.1-51.0 MEAN CORPUSCULAR VOLUME (BEAKER) (test amnw=305) 104.6 fL 79.0-92.2 MEAN CORPUSCULAR HEMOGLOBIN (BEAKER) (test 32.9 pg 25.7-32.2 lecd=399) MEAN CORPUSCULAR HEMOGLOBIN CONC (BEAKER) (test 31.5 GM/DL 32.3-36.5 mndo=514) RED CELL DISTRIBUTION WIDTH (BEAKER) (test 15.5 % 11.6-14.4 yvye=350) PLATELET COUNT (BEAKER) (test agci=727) 219 K/CU MM 150-450 MEAN PLATELET VOLUME (BEAKER) (test vltf=339) 10.2 fL 9.4-12.4 NUCLEATED RED BLOOD CELLS (BEAKER) (test 0 /100 WBC 0-0 mqcp=023) NEUTROPHILS RELATIVE PERCENT (BEAKER) (test 56 % rwco=281) LYMPHOCYTES RELATIVE PERCENT (BEAKER) (test 29 % nbpt=563) MONOCYTES RELATIVE PERCENT (BEAKER) (test 8 % qypq=015) EOSINOPHILS RELATIVE PERCENT (BEAKER) (test 5 % bvnc=069) BASOPHILS RELATIVE PERCENT (BEAKER) (test 1 % ogpu=148) NEUTROPHILS ABSOLUTE COUNT (BEAKER) (test 2.69 K/ L 1.78-5.38 hgdl=603) LYMPHOCYTES ABSOLUTE COUNT (BEAKER) (test 1.40 K/ L 1.32-3.57 zcsy=634) MONOCYTES ABSOLUTE COUNT (BEAKER) (test 0.37 K/ L 0.30-0.82 peqp=210) EOSINOPHILS ABSOLUTE COUNT (BEAKER) (test 0.25 K/ L 0.04-0.54 oebe=747) BASOPHILS ABSOLUTE COUNT (BEAKER) (test 0.05 K/ L 0.01-0.08 hnib=316) IMMATURE GRANULOCYTES-RELATIVE PERCENT (BEAKER) 0 % 0-1 (test hkdd=6126) COMPREHENSIVE METABOLIC [id number] 09:35:00 Test Item Value Reference Range Comments TOTAL PROTEIN (BEAKER) 6.4 gm/dL 6.0-8.3 Specimen slightly (test sncb=317) hemolyzed ALBUMIN (BEAKER) (test 2.8 g/dL 3.5-5.0 Specimen slightly uywn=4824) hemolyzed ALKALINE PHOSPHATASE 214 U/L 40-150 (BEAKER) (test jvus=772) BILIRUBIN TOTAL (BEAKER) 1.0 mg/dL 0.2-1.2 Specimen slightly (test hriz=733) hemolyzed SODIUM (BEAKER) (test 136 meq/L 136-145 vsir=012) POTASSIUM (BEAKER) (test 4.2 meq/L 3.5-5.1 Specimen slightly haao=980) hemolyzed CHLORIDE (BEAKER) (test 107 meq/L 98-107 bfur=945) CO2 (BEAKER) (test 23 meq/L 22-29 jddy=717) BLOOD UREA NITROGEN 2 mg/dL 7-21 (BEAKER) (test qewd=586) CREATININE (BEAKER) (test 0.54 mg/dL 0.57-1.25 Specimen slightly cbzc=917) hemolyzed GLUCOSE RANDOM (BEAKER) 89 mg/dL 70-105 (test dreu=415) CALCIUM (BEAKER) (test 7.6 mg/dL 8.4-10.2 jtre=837) AST (SGOT) (BEAKER) (test 101 U/L 5-34 Specimen slightly tgoq=266) hemolyzed ALT (SGPT) (BEAKER) (test 41 U/L 6-55 Specimen slightly nnmw=155) hemolyzed EGFR (BEAKER) (test 176 mL/min/1.73 sq ESTIMATED GFR IS NOT zmze=9199) m ACCURATE CREATININE CLEARANCE IN PREDICTING GLOMERULAR FILTRATION RATE. ESTIMATED GFR IS NOT APPLICABLE FOR DIALYSIS PATIENTS. [id number] 09:27:00 Test Item Value Reference Range Comments MAGNESIUM (BEAKER) (test 1.3 mg/dL 1.6-2.6 Specimen slightly hemolyzed znbx=790) CBC W/PLT COUNT & AUTO [id number] 09:04:00 Test Item Value Reference Range Comments WHITE BLOOD CELL COUNT (BEAKER) (test fjrm=874) 5.7 K/ L 3.5-10.5 RED BLOOD CELL COUNT (BEAKER) (test mmfx=095) 3.18 M/ L 4.63-6.08 HEMOGLOBIN (BEAKER) (test tzps=842) 10.4 GM/DL 13.7-17.5 HEMATOCRIT (BEAKER) (test jujx=010) 33.1 % 40.1-51.0 MEAN CORPUSCULAR VOLUME (BEAKER) (test qcer=503) 104.1 fL 79.0-92.2 MEAN CORPUSCULAR HEMOGLOBIN (BEAKER) (test 32.7 pg 25.7-32.2 ofdr=406) MEAN CORPUSCULAR HEMOGLOBIN CONC (BEAKER) (test 31.4 GM/DL 32.3-36.5 emvc=729) RED CELL DISTRIBUTION WIDTH (BEAKER) (test 15.9 % 11.6-14.4 yjpk=565) PLATELET COUNT (BEAKER) (test kmal=766) 223 K/CU MM 150-450 MEAN PLATELET VOLUME (BEAKER) (test kfxh=847) 10.4 fL 9.4-12.4 NUCLEATED RED BLOOD CELLS (BEAKER) (test 0 /100 WBC 0-0 gupq=679) NEUTROPHILS RELATIVE PERCENT (BEAKER) (test 58 % veki=108) LYMPHOCYTES RELATIVE PERCENT (BEAKER) (test 25 % jdzz=824) MONOCYTES RELATIVE PERCENT (BEAKER) (test 11 % yyaw=366) EOSINOPHILS RELATIVE PERCENT (BEAKER) (test 5 % xyxy=787) BASOPHILS RELATIVE PERCENT (BEAKER) (test 1 % tlls=736) NEUTROPHILS ABSOLUTE COUNT (BEAKER) (test 3.27 K/ L 1.78-5.38 jrba=718) LYMPHOCYTES ABSOLUTE COUNT (BEAKER) (test 1.40 K/ L 1.32-3.57 auyr=648) MONOCYTES ABSOLUTE COUNT (BEAKER) (test 0.61 K/ L 0.30-0.82 hokz=886) EOSINOPHILS ABSOLUTE COUNT (BEAKER) (test 0.30 K/ L 0.04-0.54 xppa=539) BASOPHILS ABSOLUTE COUNT (BEAKER) (test 0.07 K/ L 0.01-0.08 qgpv=387) IMMATURE GRANULOCYTES-RELATIVE PERCENT (BEAKER) 0 % 0-1 (test hdbg=1401) COMPREHENSIVE METABOLIC [id number] 05:26:00 Test Item Value Reference Range Comments TOTAL PROTEIN (BEAKER) 5.7 gm/dL 6.0-8.3 (test qewq=017) ALBUMIN (BEAKER) (test 2.6 g/dL 3.5-5.0 asar=5333) ALKALINE PHOSPHATASE 204 U/L 40-150 (BEAKER) (test xhfv=302) BILIRUBIN TOTAL (BEAKER) 1.0 mg/dL 0.2-1.2 (test ihre=723) SODIUM (BEAKER) (test 138 meq/L 136-145 xmeo=106) POTASSIUM (BEAKER) (test 3.3 meq/L 3.5-5.1 vfln=829) CHLORIDE (BEAKER) (test 106 meq/L 98-107 fcdz=580) CO2 (BEAKER) (test 24 meq/L 22-29 ofuv=402) BLOOD UREA NITROGEN 5 mg/dL 7-21 (BEAKER) (test xmsv=422) CREATININE (BEAKER) (test 0.53 mg/dL 0.57-1.25 xgbi=068) GLUCOSE RANDOM (BEAKER) 85 mg/dL 70-105 (test vkkx=696) CALCIUM (BEAKER) (test 7.3 mg/dL 8.4-10.2 gbax=789) AST (SGOT) (BEAKER) (test 108 U/L 5-34 omho=955) ALT (SGPT) (BEAKER) (test 46 U/L 6-55 arwt=079) EGFR (BEAKER) (test 180 mL/min/1.73 sq ESTIMATED GFR IS NOT uhnk=7956) m ACCURATE CREATININE CLEARANCE IN PREDICTING GLOMERULAR FILTRATION RATE. ESTIMATED GFR IS NOT APPLICABLE FOR DIALYSIS PATIENTS. PROTHROMBIN [id number] 05:08:00 Test Item Value Reference Range Comments PROTIME (BEAKER) (test yriv=315) 17.0 seconds 11.9-14.2 INR (BEAKER) (test gloa=617) 1.5 <=5.9 Effective 12/11/2018: PT Reference Range ChangeNew: 11.9-14.2 Previous: 11.7- 14.7RECOMMENDED COUMADIN/WARFARIN INR THERAPY RANGESSTANDARD DOSE: 2.0-3.0 Includes: PROPHYLAXIS for venous thrombosis, systemic embolization; TREATMENT for venous thrombosis and/or pulmonary embolus.HIGH RISK: Target INR is2.5-3.5 for patients wiht mechanical heart valves.CBC W/PLT COUNT & AUTO [id number] 04:59:00 Test Item Value Reference Range Comments WHITE BLOOD CELL COUNT (BEAKER) (test vijk=874) 6.1 K/ L 3.5-10.5 RED BLOOD CELL COUNT (BEAKER) (test vapk=168) 2.96 M/ L 4.63-6.08 HEMOGLOBIN (BEAKER) (test nxgp=576) 9.7 GM/DL 13.7-17.5 HEMATOCRIT (BEAKER) (test faya=958) 30.5 % 40.1-51.0 MEAN CORPUSCULAR VOLUME (BEAKER) (test wyfr=441) 103.0 fL 79.0-92.2 MEAN CORPUSCULAR HEMOGLOBIN (BEAKER) (test 32.8 pg 25.7-32.2 nohm=412) MEAN CORPUSCULAR HEMOGLOBIN CONC (BEAKER) (test 31.8 GM/DL 32.3-36.5 vynq=708) RED CELL DISTRIBUTION WIDTH (BEAKER) (test 16.0 % 11.6-14.4 advd=415) PLATELET COUNT (BEAKER) (test vkcl=174) 221 K/CU MM 150-450 MEAN PLATELET VOLUME (BEAKER) (test ckjs=126) 10.7 fL 9.4-12.4 NUCLEATED RED BLOOD CELLS (BEAKER) (test 0 /100 WBC 0-0 umej=519) NEUTROPHILS RELATIVE PERCENT (BEAKER) (test 62 % hqgo=157) LYMPHOCYTES RELATIVE PERCENT (BEAKER) (test 22 % jshd=396) MONOCYTES RELATIVE PERCENT (BEAKER) (test 11 % rmyp=014) EOSINOPHILS RELATIVE PERCENT (BEAKER) (test 3 % nilo=272) BASOPHILS RELATIVE PERCENT (BEAKER) (test 1 % yfhr=805) NEUTROPHILS ABSOLUTE COUNT (BEAKER) (test 3.81 K/ L 1.78-5.38 svqx=151) LYMPHOCYTES ABSOLUTE COUNT (BEAKER) (test 1.32 K/ L 1.32-3.57 lpmq=086) MONOCYTES ABSOLUTE COUNT (BEAKER) (test 0.70 K/ L 0.30-0.82 oipo=418) EOSINOPHILS ABSOLUTE COUNT (BEAKER) (test 0.21 K/ L 0.04-0.54 otea=192) BASOPHILS ABSOLUTE COUNT (BEAKER) (test 0.07 K/ L 0.01-0.08 kpey=447) IMMATURE GRANULOCYTES-RELATIVE PERCENT (BEAKER) 0 % 0-1 (test gmme=9677) POCT-GLUCOSE [id number] 07:44:00 Test Item Value Reference Range Comments POC-GLUCOSE METER (BEAKER) 90 mg/dL 70-110 TESTED AT [facility] [address] [facility] (test xxzd=7980) [facility] [address] COMPREHENSIVE METABOLIC [id number] 07:29:00 Test Item Value Reference Range Comments TOTAL PROTEIN (BEAKER) 5.7 gm/dL 6.0-8.3 (test clmh=085) ALBUMIN (BEAKER) (test 2.5 g/dL 3.5-5.0 bvhs=0637) ALKALINE PHOSPHATASE 411 U/L 40-150 (BEAKER) (test uigy=972) BILIRUBIN TOTAL (BEAKER) 1.7 mg/dL 0.2-1.2 (test gtpw=901) SODIUM (BEAKER) (test 139 meq/L 136-145 tacy=817) POTASSIUM (BEAKER) (test 3.1 meq/L 3.5-5.1 rzer=197) CHLORIDE (BEAKER) (test 105 meq/L 98-107 svoc=358) CO2 (BEAKER) (test 24 meq/L 22-29 rwic=432) BLOOD UREA NITROGEN 3 mg/dL 7-21 (BEAKER) (test jtwh=785) CREATININE (BEAKER) (test 0.61 mg/dL 0.57-1.25 ytnk=121) GLUCOSE RANDOM (BEAKER) 95 mg/dL 70-105 (test gyda=796) CALCIUM (BEAKER) (test 6.8 mg/dL 8.4-10.2 qlqx=467) AST (SGOT) (BEAKER) (test 173 U/L 5-34 rgfj=389) ALT (SGPT) (BEAKER) (test 53 U/L 6-55 adbk=300) EGFR (BEAKER) (test 153 mL/min/1.73 sq ESTIMATED GFR IS NOT nyao=8871) m ACCURATE CREATININE CLEARANCE IN PREDICTING GLOMERULAR FILTRATION RATE. ESTIMATED GFR IS NOT APPLICABLE FOR DIALYSIS PATIENTS. [id number] 07:28:00 Test Item Value Reference Range Comments PHOSPHORUS (BEAKER) (test dmxt=303) 2.4 mg/dL 2.3-4.7 [id number] 07:28:00 Test Item Value Reference Range Comments MAGNESIUM (BEAKER) (test qicn=200) 1.8 mg/dL 1.6-2.6 HEPATIC FUNCTION [id number] 07:28:00 Test Item Value Reference Range Comments TOTAL PROTEIN (BEAKER) (test yceq=259) 5.7 gm/dL 6.0-8.3 ALBUMIN (BEAKER) (test rrbu=4398) 2.5 g/dL 3.5-5.0 BILIRUBIN TOTAL (BEAKER) (test jmna=246) 1.7 mg/dL 0.2-1.2 BILIRUBIN DIRECT (BEAKER) (test brze=727) 1.3 mg/dL 0.1-0.5 ALKALINE PHOSPHATASE (BEAKER) (test gohf=360) 411 U/L 40-150 AST (SGOT) (BEAKER) (test bune=723) 173 U/L 5-34 ALT (SGPT) (BEAKER) (test fznz=390) 53 U/L 6-55 [id number] 07:28:00 Test Item Value Reference Range Comments LIPASE (BEAKER) (test rppv=682) 231 U/L 8-78 CBC W/PLT COUNT & AUTO [id number] 07:10:00 Test Item Value Reference Range Comments WHITE BLOOD CELL COUNT (BEAKER) (test bkwy=203) 4.5 K/ L 3.5-10.5 RED BLOOD CELL COUNT (BEAKER) (test ubeq=069) 2.76 M/ L 4.63-6.08 HEMOGLOBIN (BEAKER) (test rcam=621) 9.2 GM/DL 13.7-17.5 HEMATOCRIT (BEAKER) (test ocrf=725) 29.2 % 40.1-51.0 MEAN CORPUSCULAR VOLUME (BEAKER) (test urec=172) 105.8 fL 79.0-92.2 MEAN CORPUSCULAR HEMOGLOBIN (BEAKER) (test 33.3 pg 25.7-32.2 djai=843) MEAN CORPUSCULAR HEMOGLOBIN CONC (BEAKER) (test 31.5 GM/DL 32.3-36.5 glnn=006) RED CELL DISTRIBUTION WIDTH (BEAKER) (test 21.9 % 11.6-14.4 pade=649) PLATELET COUNT (BEAKER) (test olec=686) 150 K/CU MM 150-450 MEAN PLATELET VOLUME (BEAKER) (test wzzx=050) 10.5 fL 9.4-12.4 NUCLEATED RED BLOOD CELLS (BEAKER) (test 0 /100 WBC 0-0 kqyl=239) NEUTROPHILS RELATIVE PERCENT (BEAKER) (test 65 % fove=021) LYMPHOCYTES RELATIVE PERCENT (BEAKER) (test 17 % yrvs=273) MONOCYTES RELATIVE PERCENT (BEAKER) (test 13 % cisk=463) EOSINOPHILS RELATIVE PERCENT (BEAKER) (test 2 % eqoa=191) BASOPHILS RELATIVE PERCENT (BEAKER) (test 1 % vjde=995) NEUTROPHILS ABSOLUTE COUNT (BEAKER) (test 2.91 K/ L 1.78-5.38 jfdi=225) LYMPHOCYTES ABSOLUTE COUNT (BEAKER) (test 0.78 K/ L 1.32-3.57 vsut=920) MONOCYTES ABSOLUTE COUNT (BEAKER) (test 0.59 K/ L 0.30-0.82 oloq=598) EOSINOPHILS ABSOLUTE COUNT (BEAKER) (test 0.11 K/ L 0.04-0.54 caei=758) BASOPHILS ABSOLUTE COUNT (BEAKER) (test 0.05 K/ L 0.01-0.08 ofax=240) IMMATURE GRANULOCYTES-RELATIVE PERCENT (BEAKER) 2 % 0-1 (test vtld=4022) COMPREHENSIVE METABOLIC [id number] 04:23:00 Test Item Value Reference Range Comments TOTAL PROTEIN (BEAKER) 5.5 gm/dL 6.0-8.3 (test icib=820) ALBUMIN (BEAKER) (test 2.5 g/dL 3.5-5.0 ehiy=2808) ALKALINE PHOSPHATASE 453 U/L 40-150 (BEAKER) (test vred=039) BILIRUBIN TOTAL (BEAKER) 2.0 mg/dL 0.2-1.2 (test nhhq=740) SODIUM (BEAKER) (test 138 meq/L 136-145 fvkd=800) POTASSIUM (BEAKER) (test 3.2 meq/L 3.5-5.1 ffki=814) CHLORIDE (BEAKER) (test 104 meq/L 98-107 nsvc=201) CO2 (BEAKER) (test 26 meq/L 22-29 nski=772) BLOOD UREA NITROGEN 3 mg/dL 7-21 (BEAKER) (test rbci=496) CREATININE (BEAKER) (test 0.51 mg/dL 0.57-1.25 kfey=473) GLUCOSE RANDOM (BEAKER) 104 mg/dL 70-105 (test psof=036) CALCIUM (BEAKER) (test 7.0 mg/dL 8.4-10.2 wute=764) AST (SGOT) (BEAKER) (test 166 U/L 5-34 dsdd=632) ALT (SGPT) (BEAKER) (test 52 U/L 6-55 vvdi=424) EGFR (BEAKER) (test 188 mL/min/1.73 sq ESTIMATED GFR IS NOT hfuz=0560) m ACCURATE CREATININE CLEARANCE IN PREDICTING GLOMERULAR FILTRATION RATE. ESTIMATED GFR IS NOT APPLICABLE FOR DIALYSIS PATIENTS. [id number] 04:21:00 Test Item Value Reference Range Comments PHOSPHORUS (BEAKER) (test blvt=977) 2.0 mg/dL 2.3-4.7 [id number] 04:21:00 Test Item Value Reference Range Comments MAGNESIUM (BEAKER) (test yqzn=236) 1.5 mg/dL 1.6-2.6 HEPATIC FUNCTION [id number] 04:21:00 Test Item Value Reference Range Comments TOTAL PROTEIN (BEAKER) (test fpgj=015) 5.5 gm/dL 6.0-8.3 ALBUMIN (BEAKER) (test mwfr=0069) 2.5 g/dL 3.5-5.0 BILIRUBIN TOTAL (BEAKER) (test zyqv=426) 2.0 mg/dL 0.2-1.2 BILIRUBIN DIRECT (BEAKER) (test vkrv=212) 1.5 mg/dL 0.1-0.5 ALKALINE PHOSPHATASE (BEAKER) (test ehlu=311) 453 U/L 40-150 AST (SGOT) (BEAKER) (test sndq=435) 166 U/L 5-34 ALT (SGPT) (BEAKER) (test wnzu=083) 52 U/L 6-55 [id number] 04:21:00 Test Item Value Reference Range Comments LIPASE (BEAKER) (test gcji=305) 283 U/L 8-78 CBC W/PLT COUNT & AUTO [id number] 04:19:00 Test Item Value Reference Range Comments WHITE BLOOD CELL COUNT (BEAKER) (test ekrf=819) 4.6 K/ L 3.5-10.5 RED BLOOD CELL COUNT (BEAKER) (test cmoi=855) 2.82 M/ L 4.63-6.08 HEMOGLOBIN (BEAKER) (test jxhs=816) 9.4 GM/DL 13.7-17.5 HEMATOCRIT (BEAKER) (test hlbh=405) 28.9 % 40.1-51.0 MEAN CORPUSCULAR VOLUME (BEAKER) (test sirh=194) 102.5 fL 79.0-92.2 MEAN CORPUSCULAR HEMOGLOBIN (BEAKER) (test 33.3 pg 25.7-32.2 svub=598) MEAN CORPUSCULAR HEMOGLOBIN CONC (BEAKER) (test 32.5 GM/DL 32.3-36.5 tdpx=053) RED CELL DISTRIBUTION WIDTH (BEAKER) (test 21.8 % 11.6-14.4 yeqa=425) PLATELET COUNT (BEAKER) (test btsa=909) 141 K/CU MM 150-450 MEAN PLATELET VOLUME (BEAKER) (test dued=231) 9.5 fL 9.4-12.4 NUCLEATED RED BLOOD CELLS (BEAKER) (test 0 /100 WBC 0-0 fhlg=302) NEUTROPHILS RELATIVE PERCENT (BEAKER) (test 63 % tgrg=355) LYMPHOCYTES RELATIVE PERCENT (BEAKER) (test 22 % yetx=063) MONOCYTES RELATIVE PERCENT (BEAKER) (test 10 % kywy=998) EOSINOPHILS RELATIVE PERCENT (BEAKER) (test 3 % vgdi=217) BASOPHILS RELATIVE PERCENT (BEAKER) (test 1 % wxhb=251) NEUTROPHILS ABSOLUTE COUNT (BEAKER) (test 2.86 K/ L 1.78-5.38 bdul=849) LYMPHOCYTES ABSOLUTE COUNT (BEAKER) (test 1.02 K/ L 1.32-3.57 dhhf=354) MONOCYTES ABSOLUTE COUNT (BEAKER) (test 0.44 K/ L 0.30-0.82 fwkm=160) EOSINOPHILS ABSOLUTE COUNT (BEAKER) (test 0.12 K/ L 0.04-0.54 ubhd=924) BASOPHILS ABSOLUTE COUNT (BEAKER) (test 0.05 K/ L 0.01-0.08 pznv=449) IMMATURE GRANULOCYTES-RELATIVE PERCENT (BEAKER) 2 % 0-1 (test vism=7694) HEMOGLOBIN AND [id number] 03:57:00 Test Item Value Reference Range Comments HEMOGLOBIN (BEAKER) (test szrf=634) 9.4 GM/DL 13.7-17.5 HEMATOCRIT (BEAKER) (test keno=545) 28.9 % 40.1-51.0 HEMOGLOBIN AND [id number] 11:59:00 Test Item Value Reference Range Comments HEMOGLOBIN (BEAKER) (test btsr=740) 8.4 GM/DL 13.7-17.5 HEMATOCRIT (BEAKER) (test xbcw=903) 24.7 % 40.1-51.0 [id number] 09:15:00 Test Item Value Reference Range Comments LIPASE (BEAKER) (test hxii=633) 214 U/L 8-78 HEPATIC FUNCTION [id number] 06:09:00 Test Item Value Reference Range Comments TOTAL PROTEIN (BEAKER) (test cpfv=670) 5.1 gm/dL 6.0-8.3 ALBUMIN (BEAKER) (test ucka=7347) 2.4 g/dL 3.5-5.0 BILIRUBIN TOTAL (BEAKER) (test luny=742) 2.0 mg/dL 0.2-1.2 BILIRUBIN DIRECT (BEAKER) (test ifnw=792) 1.4 mg/dL 0.1-0.5 ALKALINE PHOSPHATASE (BEAKER) (test nbry=312) 418 U/L 40-150 AST (SGOT) (BEAKER) (test zimc=846) 147 U/L 5-34 ALT (SGPT) (BEAKER) (test wwkm=122) 51 U/L 6-55 CBC (HEMOGRAM ONLY)[id number] 05:04:00 Test Item Value Reference Range Comments WHITE BLOOD CELL COUNT (BEAKER) (test ibuz=990) 4.8 K/ L 3.5-10.5 RED BLOOD CELL COUNT (BEAKER) (test fltx=683) 2.41 M/ L 4.63-6.08 HEMOGLOBIN (BEAKER) (test urph=413) 8.1 GM/DL 13.7-17.5 HEMATOCRIT (BEAKER) (test aoyf=594) 24.1 % 40.1-51.0 MEAN CORPUSCULAR VOLUME (BEAKER) (test yzpa=649) 100.0 fL 79.0-92.2 MEAN CORPUSCULAR HEMOGLOBIN (BEAKER) (test 33.6 pg 25.7-32.2 kfrv=835) MEAN CORPUSCULAR HEMOGLOBIN CONC (BEAKER) (test 33.6 GM/DL 32.3-36.5 gjrh=701) RED CELL DISTRIBUTION WIDTH (BEAKER) (test 22.4 % 11.6-14.4 yrhq=774) PLATELET COUNT (BEAKER) (test qttn=530) 135 K/CU MM 150-450 MEAN PLATELET VOLUME (BEAKER) (test uahe=463) 10.0 fL 9.4-12.4 NUCLEATED RED BLOOD CELLS (BEAKER) (test 1 /100 WBC 0-0 dyrb=954) BASIC METABOLIC [id number] 02:50:00 Test Item Value Reference Range Comments SODIUM (BEAKER) (test 137 meq/L 136-145 geyp=041) POTASSIUM (BEAKER) (test 3.1 meq/L 3.5-5.1 pbrq=138) CHLORIDE (BEAKER) (test 104 meq/L 98-107 ydsa=772) CO2 (BEAKER) (test 24 meq/L 22-29 bqch=697) BLOOD UREA NITROGEN 3 mg/dL 7-21 (BEAKER) (test cinv=812) CREATININE (BEAKER) (test 0.50 mg/dL 0.57-1.25 rqtl=086) GLUCOSE RANDOM (BEAKER) 124 mg/dL 70-105 (test wgae=025) CALCIUM (BEAKER) (test 6.5 mg/dL 8.4-10.2 ybdh=013) EGFR (BEAKER) (test 193 mL/min/1.73 sq m ESTIMATED GFR IS NOT lsqu=6081) ACCURATE CREATININE CLEARANCE IN PREDICTING GLOMERULAR FILTRATION RATE. ESTIMATED GFR IS NOT APPLICABLE FOR DIALYSIS PATIENTS. [id number] 02:14:00 Test Item Value Reference Range Comments PHOSPHORUS (BEAKER) (test zuja=458) 2.6 mg/dL 2.3-4.7 [id number] 02:14:00 Test Item Value Reference Range Comments MAGNESIUM (BEAKER) (test jgbh=010) 1.9 mg/dL 1.6-2.6 HEMOGLOBIN AND [id number] 01:13:00 Test Item Value Reference Range Comments HEMOGLOBIN (BEAKER) (test fetb=197) 8.1 GM/DL 13.7-17.5 HEMATOCRIT (BEAKER) (test yjlx=239) 23.8 % 40.1-51.0 POCT-GLUCOSE [id number] 20:56:00 Test Item Value Reference Range Comments POC-GLUCOSE METER (BEAKER) 105 mg/dL 70-110 TESTED AT [facility] [address] [facility] (test bksi=2097) [facility] [address] COMPREHENSIVE METABOLIC [id number] 14:51:00 Test Item Value Reference Range Comments TOTAL PROTEIN (BEAKER) 6.0 gm/dL 6.0-8.3 (test kmrd=204) ALBUMIN (BEAKER) (test 2.8 g/dL 3.5-5.0 xchk=7429) ALKALINE PHOSPHATASE 489 U/L 40-150 (BEAKER) (test zxre=380) BILIRUBIN TOTAL (BEAKER) 2.7 mg/dL 0.2-1.2 (test oini=916) SODIUM (BEAKER) (test 141 meq/L 136-145 kjvk=629) POTASSIUM (BEAKER) (test 2.6 meq/L 3.5-5.1 kphh=947) CHLORIDE (BEAKER) (test 103 meq/L 98-107 wjxi=369) CO2 (BEAKER) (test 28 meq/L 22-29 xeaz=590) BLOOD UREA NITROGEN 5 mg/dL 7-21 (BEAKER) (test kawt=439) CREATININE (BEAKER) (test 0.54 mg/dL 0.57-1.25 hxxr=740) GLUCOSE RANDOM (BEAKER) 88 mg/dL 70-105 (test fjqd=160) CALCIUM (BEAKER) (test 7.1 mg/dL 8.4-10.2 fgxq=588) AST (SGOT) (BEAKER) (test 168 U/L 5-34 undl=006) ALT (SGPT) (BEAKER) (test 61 U/L 6-55 frqc=475) EGFR (BEAKER) (test 176 mL/min/1.73 sq ESTIMATED GFR IS NOT urgf=1661) m ACCURATE CREATININE CLEARANCE IN PREDICTING GLOMERULAR FILTRATION RATE. ESTIMATED GFR IS NOT APPLICABLE FOR DIALYSIS PATIENTS. Specimen slightly [id number] 14:51:00 Test Item Value Reference Range Comments PHOSPHORUS (BEAKER) (test muhz=457) 0.9 mg/dL 2.3-4.7 [id number] 14:41:00 Test Item Value Reference Range Comments MAGNESIUM (BEAKER) (test rghj=675) 1.3 mg/dL 1.6-2.6 [id number] 14:41:00 Test Item Value Reference Range Comments AMYLASE (BEAKER) (test mrkl=363) 160 U/L 25-125 Specimen slightly ictericLACTATE DEHYDROGENASE (LDH)2019-02-12 14:41:00 Test Item Value Reference Range Comments LACTATE DEHYDROGENASE (BEAKER) (test buxz=581) 572 U/L 125-220 [id number] 14:41:00 Test Item Value Reference Range Comments LIPASE (BEAKER) (test mewj=375) 562 U/L 8-78 Specimen slightly [id number] 14:39:00 Test Item Value Reference Range Comments ETHANOL (BEAKER) (test eona=429) < mg/dL <=10 [id number] 14:27:00 Test Item Value Reference Range Comments D-DIMER QUANTITATIVE (BEAKER) (test bukv=612) 4.23 MG/L FEU <0.50 Intended Use: The [...] of thrombosis is within 95-100% range.LACTIC ACID, [id number] 14:25:00 Test Item Value Reference Range Comments LACTATE BLOOD VENOUS (2) (BEAKER) (test 1.5 mmol/L 0.5-2.2 fnxn=9811) [id number] 14:21:00 Test Item Value Reference Range Comments AMMONIA (BEAKER) (test qsqp=364) 50 mol/L 18-72 [id number] 14:17:00 Test Item Value Reference Range Comments PROTIME (BEAKER) (test vusp=323) 17.8 seconds 11.9-14.2 INR (BEAKER) (test xord=564) 1.6 <=5.9 PARTIAL THROMBOPLASTIN TIME (BEAKER) (test 34.9 seconds 22.5-36.0 iwil=562) Effective 12/11/2018: PT Reference Range ChangeNew: 11.9-14.2 Previous: 11.7- 14.7RECOMMENDED COUMADIN/WARFARIN INR THERAPY RANGESSTANDARD DOSE: 2.0-3.0 Includes: PROPHYLAXIS for venous thrombosis, systemic embolization; TREATMENT for venous thrombosis and/or pulmonary embolus.HIGH RISK: Target INR is2.5-3.5 for patients wiht mechanical heart valves.[id number] 14:17:00 Test Item Value Reference Range Comments FIBRINOGEN LEVEL (BEAKER) (test iczd=091) 304 mg/dl 225-434 CBC (HEMOGRAM ONLY)2019-02-12 14:13:00 Test Item Value Reference Range Comments WHITE BLOOD CELL COUNT 5.0 K/ L 3.5-10.5 (BEAKER) (test emdm=509) RED BLOOD CELL COUNT (BEAKER) 2.64 M/ L 4.63-6.08 (test qglc=630) HEMOGLOBIN (BEAKER) (test 9.0 GM/DL 13.7-17.5 qxah=003) HEMATOCRIT (BEAKER) (test 27.0 % 40.1-51.0 phrp=601) MEAN CORPUSCULAR VOLUME 102.3 fL 79.0-92.2 (BEAKER) (test hlry=094) MEAN CORPUSCULAR HEMOGLOBIN 34.1 pg 25.7-32.2 (BEAKER) (test epzt=164) MEAN CORPUSCULAR HEMOGLOBIN 33.3 GM/DL 32.3-36.5 CONC (BEAKER) (test tcds=475) RED CELL DISTRIBUTION WIDTH % 11.6-14.4 Unable to report due to (BEAKER) (test egbl=766) abnormal Platelet population distribution. PLATELET COUNT (BEAKER) (test 146 K/CU MM 150-450 ldxe=296) MEAN PLATELET VOLUME (BEAKER) 10.0 fL 9.4-12.4 (test pkdd=453) NUCLEATED RED BLOOD CELLS 1 /100 WBC 0-0 (BEAKER) (test tsnv=462) CBC W/PLT COUNT & AUTO [id number] 05:36:00 Test Item Value Reference Range Comments WHITE BLOOD CELL COUNT (BEAKER) (test hgyh=533) 3.1 K/ L 3.5-10.5 RED BLOOD CELL COUNT (BEAKER) (test zegn=770) 3.39 M/ L 4.63-6.08 HEMOGLOBIN (BEAKER) (test rpvi=337) 11.5 GM/DL 13.7-17.5 HEMATOCRIT (BEAKER) (test amsi=684) 33.7 % 40.1-51.0 MEAN CORPUSCULAR VOLUME (BEAKER) (test wgwd=055) 99.4 fL 79.0-92.2 MEAN CORPUSCULAR HEMOGLOBIN (BEAKER) (test 33.9 pg 25.7-32.2 wllt=290) MEAN CORPUSCULAR HEMOGLOBIN CONC (BEAKER) (test 34.1 GM/DL 32.3-36.5 uttw=138) RED CELL DISTRIBUTION WIDTH (BEAKER) (test 12.8 % 11.6-14.4 zuwz=866) PLATELET COUNT (BEAKER) (test drhl=103) 130 K/CU MM 150-450 MEAN PLATELET VOLUME (BEAKER) (test nzrl=103) 10.4 fL 9.4-12.4 NUCLEATED RED BLOOD CELLS (BEAKER) (test 0 /100 WBC 0-0 ucwr=202) NEUTROPHILS RELATIVE PERCENT (BEAKER) (test 51 % jmhj=909) LYMPHOCYTES RELATIVE PERCENT (BEAKER) (test 31 % ztdb=542) MONOCYTES RELATIVE PERCENT (BEAKER) (test 12 % alpb=510) EOSINOPHILS RELATIVE PERCENT (BEAKER) (test 4 % vwhy=205) BASOPHILS RELATIVE PERCENT (BEAKER) (test 1 % pznj=239) NEUTROPHILS ABSOLUTE COUNT (BEAKER) (test 1.61 K/ L 1.78-5.38 ikiu=278) LYMPHOCYTES ABSOLUTE COUNT (BEAKER) (test 0.98 K/ L 1.32-3.57 vmsn=644) MONOCYTES ABSOLUTE COUNT (BEAKER) (test 0.38 K/ L 0.30-0.82 pqqt=053) EOSINOPHILS ABSOLUTE COUNT (BEAKER) (test 0.11 K/ L 0.04-0.54 ckrs=976) BASOPHILS ABSOLUTE COUNT (BEAKER) (test 0.04 K/ L 0.01-0.08 hoel=087) IMMATURE GRANULOCYTES-RELATIVE PERCENT (BEAKER) 1 % 0-1 (test feno=6787) MR, ABDOMEN, [id number] 13:31:00FINAL REPORT MRCP, MRI of abdomen without [...] [place] Verified Date/Time: 12/12/2018 13:31:00 Reading Location: [facility] B1 C013Y CT Body Reading Room COMPREHENSIVE METABOLIC [id number] 09:56:00 Test Item Value Reference Range Comments TOTAL PROTEIN (BEAKER) 5.5 gm/dL 6.0-8.3 (test yrhh=874) ALBUMIN (BEAKER) (test 3.1 g/dL 3.5-5.0 flda=5533) ALKALINE PHOSPHATASE 116 U/L 40-150 (BEAKER) (test xnkp=413) BILIRUBIN TOTAL (BEAKER) 1.9 mg/dL 0.2-1.2 (test houd=317) SODIUM (BEAKER) (test 139 meq/L 136-145 gghx=280) POTASSIUM (BEAKER) (test 3.0 meq/L 3.5-5.1 xzth=383) CHLORIDE (BEAKER) (test 107 meq/L 98-107 mudb=810) CO2 (BEAKER) (test 23 meq/L 22-29 jbhp=158) BLOOD UREA NITROGEN 4 mg/dL 7-21 (BEAKER) (test bspa=331) CREATININE (BEAKER) (test 0.56 mg/dL 0.57-1.25 hozf=628) GLUCOSE RANDOM (BEAKER) 116 mg/dL 70-105 (test odba=274) CALCIUM (BEAKER) (test 7.4 mg/dL 8.4-10.2 klzs=298) AST (SGOT) (BEAKER) (test 297 U/L 5-34 ulkc=965) ALT (SGPT) (BEAKER) (test 173 U/L 6-55 uiiq=360) EGFR (BEAKER) (test 169 mL/min/1.73 sq ESTIMATED GFR IS NOT rbsf=1886) m ACCURATE CREATININE CLEARANCE IN PREDICTING GLOMERULAR FILTRATION RATE. ESTIMATED GFR IS NOT APPLICABLE FOR DIALYSIS PATIENTS. CBC W/PLT COUNT & AUTO [id number] 04:42:00 Test Item Value Reference Range Comments WHITE BLOOD CELL COUNT (BEAKER) (test agwm=572) 3.1 K/ L 3.5-10.5 RED BLOOD CELL COUNT (BEAKER) (test fidk=495) 3.09 M/ L 4.63-6.08 HEMOGLOBIN (BEAKER) (test farr=597) 10.7 GM/DL 13.7-17.5 HEMATOCRIT (BEAKER) (test dfgl=940) 30.5 % 40.1-51.0 MEAN CORPUSCULAR VOLUME (BEAKER) (test dwwk=662) 98.7 fL 79.0-92.2 MEAN CORPUSCULAR HEMOGLOBIN (BEAKER) (test 34.6 pg 25.7-32.2 euon=096) MEAN CORPUSCULAR HEMOGLOBIN CONC (BEAKER) (test 35.1 GM/DL 32.3-36.5 qysw=747) RED CELL DISTRIBUTION WIDTH (BEAKER) (test 12.4 % 11.6-14.4 wsiv=968) PLATELET COUNT (BEAKER) (test ymjm=223) 99 K/CU MM 150-450 MEAN PLATELET VOLUME (BEAKER) (test klsr=858) 11.0 fL 9.4-12.4 NUCLEATED RED BLOOD CELLS (BEAKER) (test 0 /100 WBC 0-0 qlwg=487) NEUTROPHILS RELATIVE PERCENT (BEAKER) (test 60 % pwev=118) LYMPHOCYTES RELATIVE PERCENT (BEAKER) (test 26 % zlle=978) MONOCYTES RELATIVE PERCENT (BEAKER) (test 11 % nxsp=852) EOSINOPHILS RELATIVE PERCENT (BEAKER) (test 2 % ciwc=054) BASOPHILS RELATIVE PERCENT (BEAKER) (test 1 % nqqa=809) NEUTROPHILS ABSOLUTE COUNT (BEAKER) (test 1.84 K/ L 1.78-5.38 vuov=139) LYMPHOCYTES ABSOLUTE COUNT (BEAKER) (test 0.81 K/ L 1.32-3.57 smme=884) MONOCYTES ABSOLUTE COUNT (BEAKER) (test ymsp=520) 0.34 K/ L 0.30-0.82 EOSINOPHILS ABSOLUTE COUNT (BEAKER) (test 0.06 K/ L 0.04-0.54 qspg=767) BASOPHILS ABSOLUTE COUNT (BEAKER) (test gatx=227) 0.03 K/ L 0.01-0.08 IMMATURE GRANULOCYTES-RELATIVE PERCENT (BEAKER) 0 % 0-1 (test fhtj=4804) FL, ESOPH, SWALLOW FUNCTION, WITH CINE OR [id number] 12:02:00Reason for exam:->pneumomediastinum, rule out esophageal perforationFINAL [...] Verified Date/Time: 12/11/2018 12:02: 17 Reading Location: [address] Ortho Consult Reading Room BASI METABOLIC [id number] 07:31:00 Test Item Value Reference Range Comments SODIUM (BEAKER) (test 139 meq/L 136-145 vjdl=420) POTASSIUM (BEAKER) (test 3.4 meq/L 3.5-5.1 Specimen slightly gbtl=789) hemolyzed CHLORIDE (BEAKER) (test 103 meq/L 98-107 ykiu=944) CO2 (BEAKER) (test 20 meq/L 22-29 mosx=068) BLOOD UREA NITROGEN 18 mg/dL 7-21 (BEAKER) (test vanw=640) CREATININE (BEAKER) (test 0.73 mg/dL 0.57-1.25 Specimen slightly daof=273) hemolyzed GLUCOSE RANDOM (BEAKER) 67 mg/dL 70-105 (test qnmm=564) CALCIUM (BEAKER) (test 8.6 mg/dL 8.4-10.2 dtrt=228) EGFR (BEAKER) (test 125 mL/min/1.73 sq m ESTIMATED GFR IS NOT hlnv=2107) ACCURATE CREATININE CLEARANCE IN PREDICTING GLOMERULAR FILTRATION RATE. ESTIMATED GFR IS NOT APPLICABLE FOR DIALYSIS PATIENTS. CBC W/PLT COUNT & AUTO [id number] 07:12:00 Test Item Value Reference Range Comments WHITE BLOOD CELL COUNT (BEAKER) (test xuin=396) 4.6 K/ L 3.5-10.5 RED BLOOD CELL COUNT (BEAKER) (test enzq=029) 3.19 M/ L 4.63-6.08 HEMOGLOBIN (BEAKER) (test uhqn=739) 11.1 GM/DL 13.7-17.5 HEMATOCRIT (BEAKER) (test bgmf=403) 31.0 % 40.1-51.0 MEAN CORPUSCULAR VOLUME (BEAKER) (test flkg=489) 97.2 fL 79.0-92.2 MEAN CORPUSCULAR HEMOGLOBIN (BEAKER) (test 34.8 pg 25.7-32.2 jomc=922) MEAN CORPUSCULAR HEMOGLOBIN CONC (BEAKER) (test 35.8 GM/DL 32.3-36.5 qyoq=213) RED CELL DISTRIBUTION WIDTH (BEAKER) (test 13.0 % 11.6-14.4 sehy=171) PLATELET COUNT (BEAKER) (test slad=935) 103 K/CU MM 150-450 MEAN PLATELET VOLUME (BEAKER) (test hgix=364) 11.0 fL 9.4-12.4 NUCLEATED RED BLOOD CELLS (BEAKER) (test 0 /100 WBC 0-0 rpul=575) NEUTROPHILS RELATIVE PERCENT (BEAKER) (test 73 % uvhu=238) LYMPHOCYTES RELATIVE PERCENT (BEAKER) (test 16 % yfvh=085) MONOCYTES RELATIVE PERCENT (BEAKER) (test 9 % cbrv=812) EOSINOPHILS RELATIVE PERCENT (BEAKER) (test 1 % vsbs=580) BASOPHILS RELATIVE PERCENT (BEAKER) (test 0 % gyxv=116) NEUTROPHILS ABSOLUTE COUNT (BEAKER) (test 3.36 K/ L 1.78-5.38 urpc=429) LYMPHOCYTES ABSOLUTE COUNT (BEAKER) (test 0.75 K/ L 1.32-3.57 edms=479) MONOCYTES ABSOLUTE COUNT (BEAKER) (test 0.41 K/ L 0.30-0.82 ktkn=106) EOSINOPHILS ABSOLUTE COUNT (BEAKER) (test 0.04 K/ L 0.04-0.54 ydjm=148) BASOPHILS ABSOLUTE COUNT (BEAKER) (test 0.02 K/ L 0.01-0.08 fnra=568) IMMATURE GRANULOCYTES-RELATIVE PERCENT (BEAKER) 1 % 0-1 (test npww=4346) RAD, CHEST, 1 VIEW, NON [id number] 20:13:00Reason for exam:-> pneumomediastinumShould this be performed [...] Verified Date /Time: 12/10/2018 20:13:39 Reading Location: [address] Reading Room [id number] 19:12:00 Test Item Value Reference Range Comments MAGNESIUM (BEAKER) (test 1.8 mg/dL 1.6-2.6 Specimen slightly hemolyzed yrun=927) COMPREHENSIVE METABOLIC [id number] 19:12:00 Test Item Value Reference Range Comments TOTAL PROTEIN (BEAKER) 6.3 gm/dL 6.0-8.3 Specimen slightly (test skvb=573) hemolyzed ALBUMIN (BEAKER) (test 3.7 g/dL 3.5-5.0 Specimen slightly clfr=5922) hemolyzed ALKALINE PHOSPHATASE 129 U/L 40-150 (BEAKER) (test eqts=051) BILIRUBIN TOTAL (BEAKER) 2.9 mg/dL 0.2-1.2 Specimen slightly (test mphr=971) hemolyzed SODIUM (BEAKER) (test 137 meq/L 136-145 oimx=279) POTASSIUM (BEAKER) (test 2.7 meq/L 3.5-5.1 Specimen slightly dcxu=650) hemolyzed CHLORIDE (BEAKER) (test 99 meq/L 98-107 qizf=264) CO2 (BEAKER) (test 23 meq/L 22-29 hebt=449) BLOOD UREA NITROGEN 22 mg/dL 7-21 (BEAKER) (test kzkl=686) CREATININE (BEAKER) (test 1.28 mg/dL 0.57-1.25 Specimen slightly dovv=726) hemolyzed GLUCOSE RANDOM (BEAKER) 78 mg/dL 70-105 (test eztz=339) CALCIUM (BEAKER) (test 8.5 mg/dL 8.4-10.2 wxti=141) AST (SGOT) (BEAKER) (test 502 U/L 5-34 Specimen slightly awmw=792) hemolyzed ALT (SGPT) (BEAKER) (test 225 U/L 6-55 Specimen slightly wdui=813) hemolyzed EGFR (BEAKER) (test 65 mL/min/1.73 sq m ESTIMATED GFR IS NOT snag=8282) ACCURATE CREATININE CLEARANCE IN PREDICTING GLOMERULAR FILTRATION RATE. ESTIMATED GFR IS NOT APPLICABLE FOR DIALYSIS PATIENTS. Specimen slightly ictericPROTHROMBIN [id number] 18:53:00 Test Item Value Reference Range Comments PROTIME (BEAKER) (test gvsy=908) 15.8 seconds 11.7-14.7 INR (BEAKER) (test sndt=133) 1.3 <=5.9 RECOMMENDED COUMADIN/WARFARIN INR THERAPY RANGESSTANDARD DOSE: 2.0 - 3.0 Includes: PROPHYLAXIS forvenous thrombosis, systemic embolization; TREATMENT for venous thrombosis and/or pulmonary embolus.HIGH RISK: Target INR is 2.5-3.5 for patients with mechanical heart valves.CBC W/PLT COUNT & AUTO [id number] 18:49:00 Test Item Value Reference Range Comments WHITE BLOOD CELL COUNT (BEAKER) (test pqzs=402) 6.0 K/ L 3.5-10.5 RED BLOOD CELL COUNT (BEAKER) (test zqkh=312) 3.44 M/ L 4.63-6.08 HEMOGLOBIN (BEAKER) (test ablk=339) 11.6 GM/DL 13.7-17.5 HEMATOCRIT (BEAKER) (test dint=784) 34.1 % 40.1-51.0 MEAN CORPUSCULAR VOLUME (BEAKER) (test thbk=556) 99.1 fL 79.0-92.2 MEAN CORPUSCULAR HEMOGLOBIN (BEAKER) (test 33.7 pg 25.7-32.2 fhmt=280) MEAN CORPUSCULAR HEMOGLOBIN CONC (BEAKER) (test 34.0 GM/DL 32.3-36.5 zryt=275) RED CELL DISTRIBUTION WIDTH (BEAKER) (test 13.1 % 11.6-14.4 trnm=234) PLATELET COUNT (BEAKER) (test ozcu=370) 109 K/CU MM 150-450 MEAN PLATELET VOLUME (BEAKER) (test lzau=551) 11.0 fL 9.4-12.4 NUCLEATED RED BLOOD CELLS (BEAKER) (test 0 /100 WBC 0-0 xsbi=635) NEUTROPHILS RELATIVE PERCENT (BEAKER) (test 81 % qvxu=730) LYMPHOCYTES RELATIVE PERCENT (BEAKER) (test 12 % rqsg=256) MONOCYTES RELATIVE PERCENT (BEAKER) (test 7 % ahjn=306) EOSINOPHILS RELATIVE PERCENT (BEAKER) (test 0 % pgfw=545) BASOPHILS RELATIVE PERCENT (BEAKER) (test 0 % xopv=138) NEUTROPHILS ABSOLUTE COUNT (BEAKER) (test 4.84 K/ L 1.78-5.38 mwvm=006) LYMPHOCYTES ABSOLUTE COUNT (BEAKER) (test 0.72 K/ L 1.32-3.57 bvqw=897) MONOCYTES ABSOLUTE COUNT (BEAKER) (test 0.41 K/ L 0.30-0.82 lxqo=114) EOSINOPHILS ABSOLUTE COUNT (BEAKER) (test 0.01 K/ L 0.04-0.54 vvqt=552) BASOPHILS ABSOLUTE COUNT (BEAKER) (test 0.02 K/ L 0.01-0.08 gfyx=596) IMMATURE GRANULOCYTES-RELATIVE PERCENT (BEAKER) 0 % 0-1 (test hzwa=9886) BLOOD [id number] 20:01:00 Test Item Value Reference Range Comments CULTURE (BEAKER) (test zczw=8696) No growth in 5 days BLOOD [id number] 20:01:00 Test Item Value Reference Range Comments CULTURE (BEAKER) (test mhle=3574) No growth in 5 days RAD, CHEST, 1 VIEW, NON [id number] 13:13:00Reason for exam:->evalute for pneumoniaShould this be performed at the bedside?->YesAddendum BeginsREPORT STATUS:A Addendum:Clinical diagnosis alcohol withdrawalsyndrome, electrolyte disturbances, elevated liver function tests, pneumonia, Signed: Marilu Sharpe MDReport Verified Date/Time: 11/01/2018 13:13: 23 Reading Location: [address] Consult Reading RoomAddendum EndsFINAL REPORT Chest [...] MDReport Verified Date/Time: 10/28 15:36:38 Reading Location: [facility] [id number] Consult Reading Room U/S, ABDOMINAL, WITH [id number] 10:43:00Reason for exam:->evaluate for portal hypertension, cirrhosis, [...] MDReport Verified Date/Time: 10/31/2018 10:43:58 Reading Location: [address] Ultrasound Reading Room COMPREHENSIVE METABOLIC [id number] 06:57:00 Test Item Value Reference Range Comments TOTAL PROTEIN (BEAKER) 6.3 gm/dL 6.0-8.3 (test rzea=517) ALBUMIN (BEAKER) (test 3.4 g/dL 3.5-5.0 iekl=6691) ALKALINE PHOSPHATASE 165 U/L 40-150 (BEAKER) (test qbce=920) BILIRUBIN TOTAL (BEAKER) 0.6 mg/dL 0.2-1.2 (test ooln=845) SODIUM (BEAKER) (test 140 meq/L 136-145 qcje=258) POTASSIUM (BEAKER) (test 3.6 meq/L 3.5-5.1 dtlr=797) CHLORIDE (BEAKER) (test 102 meq/L 98-107 lqft=109) CO2 (BEAKER) (test 29 meq/L 22-29 quyf=401) BLOOD UREA NITROGEN 3 mg/dL 7-21 (BEAKER) (test hynp=519) CREATININE (BEAKER) (test 0.55 mg/dL 0.57-1.25 tijt=758) GLUCOSE RANDOM (BEAKER) 89 mg/dL 70-105 (test idmn=850) CALCIUM (BEAKER) (test 9.2 mg/dL 8.4-10.2 oygu=171) AST (SGOT) (BEAKER) (test 184 U/L 5-34 voek=287) ALT (SGPT) (BEAKER) (test 156 U/L 6-55 mgug=657) EGFR (BEAKER) (test 173 mL/min/1.73 sq ESTIMATED GFR IS NOT azbx=1099) m ACCURATE CREATININE CLEARANCE IN PREDICTING GLOMERULAR FILTRATION RATE. ESTIMATED GFR IS NOT APPLICABLE FOR DIALYSIS PATIENTS. HEMOGLOBIN [id number] 09:30:00 Test Item Value Reference Range Comments HEMOGLOBIN A1C (BEAKER) (test eyif=025) 4.9 % 4.3-6.1 COMPREHENSIVE METABOLIC [id number] 05:17:00 Test Item Value Reference Range Comments TOTAL PROTEIN (BEAKER) 6.5 gm/dL 6.0-8.3 (test hcyj=342) ALBUMIN (BEAKER) (test 3.6 g/dL 3.5-5.0 isoo=9922) ALKALINE PHOSPHATASE 170 U/L 40-150 (BEAKER) (test gkrb=241) BILIRUBIN TOTAL (BEAKER) 0.9 mg/dL 0.2-1.2 (test djcv=661) SODIUM (BEAKER) (test 141 meq/L 136-145 nxxf=931) POTASSIUM (BEAKER) (test 3.5 meq/L 3.5-5.1 dtsa=243) CHLORIDE (BEAKER) (test 104 meq/L 98-107 hvsl=307) CO2 (BEAKER) (test 26 meq/L 22-29 umcv=657) BLOOD UREA NITROGEN 4 mg/dL 7-21 (BEAKER) (test splk=636) CREATININE (BEAKER) (test 0.55 mg/dL 0.57-1.25 nrit=547) GLUCOSE RANDOM (BEAKER) 89 mg/dL 70-105 (test fuac=875) CALCIUM (BEAKER) (test 9.3 mg/dL 8.4-10.2 ssri=020) AST (SGOT) (BEAKER) (test 167 U/L 5-34 zmqd=295) ALT (SGPT) (BEAKER) (test 156 U/L 6-55 eqxg=415) EGFR (BEAKER) (test 173 mL/min/1.73 sq ESTIMATED GFR IS NOT vtcp=3381) m ACCURATE CREATININE CLEARANCE IN PREDICTING GLOMERULAR FILTRATION RATE. ESTIMATED GFR IS NOT APPLICABLE FOR DIALYSIS PATIENTS. CBC W/PLT COUNT & AUTO [id number] 04:53:00 Test Item Value Reference Range Comments WHITE BLOOD CELL COUNT (BEAKER) (test vqkn=264) 3.4 K/ L 3.5-10.5 RED BLOOD CELL COUNT (BEAKER) (test uxwp=599) 3.45 M/ L 4.63-6.08 HEMOGLOBIN (BEAKER) (test vctp=543) 11.8 GM/DL 13.7-17.5 HEMATOCRIT (BEAKER) (test zdoh=676) 34.4 % 40.1-51.0 MEAN CORPUSCULAR VOLUME (BEAKER) (test xkzt=386) 99.7 fL 79.0-92.2 MEAN CORPUSCULAR HEMOGLOBIN (BEAKER) (test 34.2 pg 25.7-32.2 mxyz=990) MEAN CORPUSCULAR HEMOGLOBIN CONC (BEAKER) (test 34.3 GM/DL 32.3-36.5 jcwc=277) RED CELL DISTRIBUTION WIDTH (BEAKER) (test 12.2 % 11.6-14.4 jzsu=670) PLATELET COUNT (BEAKER) (test fzcn=569) 175 K/CU MM 150-450 MEAN PLATELET VOLUME (BEAKER) (test tnzr=210) 10.3 fL 9.4-12.4 NUCLEATED RED BLOOD CELLS (BEAKER) (test 0 /100 WBC 0-0 dayc=778) NEUTROPHILS RELATIVE PERCENT (BEAKER) (test 55 % fmjv=586) LYMPHOCYTES RELATIVE PERCENT (BEAKER) (test 30 % shxn=254) MONOCYTES RELATIVE PERCENT (BEAKER) (test 11 % leqy=233) EOSINOPHILS RELATIVE PERCENT (BEAKER) (test 3 % emqo=012) BASOPHILS RELATIVE PERCENT (BEAKER) (test 1 % vqlm=540) NEUTROPHILS ABSOLUTE COUNT (BEAKER) (test 1.89 K/ L 1.78-5.38 cxeh=957) LYMPHOCYTES ABSOLUTE COUNT (BEAKER) (test 1.03 K/ L 1.32-3.57 xwsp=547) MONOCYTES ABSOLUTE COUNT (BEAKER) (test 0.39 K/ L 0.30-0.82 avcu=071) EOSINOPHILS ABSOLUTE COUNT (BEAKER) (test 0.09 K/ L 0.04-0.54 elhf=203) BASOPHILS ABSOLUTE COUNT (BEAKER) (test 0.03 K/ L 0.01-0.08 fijg=167) IMMATURE GRANULOCYTES-RELATIVE PERCENT (BEAKER) 0 % 0-1 (test fnxx=8065) LIPID [id number] 17:30:00 Test Item Value Reference Range Comments TRIGLYCERIDES (BEAKER) (test tsej=863) 90 mg/dL CHOLESTEROL (BEAKER) (test atjl=485) 140 mg/dL HDL CHOLESTEROL (BEAKER) (test vkds=484) 37 mg/dL LDL CHOLESTEROL CALCULATED (BEAKER) (test 85 mg/dL hzcn=910) Triglyceride Reference Range: Low Risk <150 Borderline 150- 199 High Risk 200-499 Very High Risk >=500Cholesterol Reference Range: Low Risk <200 Borderline 200-239 High Risk > 240HDL Cholesterol Reference Range: Low Risk >=60 High Risk <40LDL Cholesterol Reference Range: Optimal <100 Near Optimal 100-129 Borderline 130-159 High 160-189 Very High >=190HEPATITIS C PCR, [id number] 14:57:00 Test Item Value Reference Range Comments HCV RESULT COMPONENT (BEAKER) HCV RNA not detected HCV RNA not detected (test obsg=3604) This test uses a Real-Time Polymerase Chain Reaction (RT-PCR) methodology and was performed using [employer] Ampliprep/MARIANO TaqMan HCV test kit version 2.0 ( [employer]).Reportable range for this assay is 15 - 100,000, 000 IU per mL (1.18 - 8.00 Log IU/mL).RAD, ABDOMEN/KUB, 1 VIEW [id number] 14: 17:00Reason for exam:->abd distensionFINAL REPORT TECHNIQUE: Supine radiographs of the abdomen dated 10/29/2018. HISTORY: Abdominal distention. COMPARISON: None IMPRESSION:No air-filled, dilated loops of bowel to suggest obstruction. No free intraperitoneal air. No abnormal soft tissue mass or calcification. Signed:Nancy Concepcioneport Verified Date/ Time: 10/29/2018 14:17:17 Reading Location: [facility] Radiology Reading Room [id number] 13:28:00 Test Item Value Reference Range Comments RPR SCREEN (BEAKER) (test uqua=762) Nonreactive Nonreactive [id number] 05:12:00 Test Item Value Reference Range Comments PHOSPHORUS (BEAKER) (test adwn=565) 2.5 mg/dL 2.3-4.7 COMPREHENSIVE METABOLIC [id number] 05:12:00 Test Item Value Reference Range Comments TOTAL PROTEIN (BEAKER) 6.9 gm/dL 6.0-8.3 (test elll=723) ALBUMIN (BEAKER) (test 3.9 g/dL 3.5-5.0 tgso=9993) ALKALINE PHOSPHATASE 200 U/L 40-150 (BEAKER) (test njal=959) BILIRUBIN TOTAL (BEAKER) 1.2 mg/dL 0.2-1.2 (test mfci=154) SODIUM (BEAKER) (test 137 meq/L 136-145 miyb=901) POTASSIUM (BEAKER) (test 3.3 meq/L 3.5-5.1 wmhv=097) CHLORIDE (BEAKER) (test 97 meq/L 98-107 sfoj=053) CO2 (BEAKER) (test 27 meq/L 22-29 vsgm=025) BLOOD UREA NITROGEN 3 mg/dL 7-21 (BEAKER) (test pjex=520) CREATININE (BEAKER) (test 0.57 mg/dL 0.57-1.25 ixpe=484) GLUCOSE RANDOM (BEAKER) 108 mg/dL 70-105 (test ofrk=184) CALCIUM (BEAKER) (test 9.4 mg/dL 8.4-10.2 kolc=273) AST (SGOT) (BEAKER) (test 263 U/L 5-34 bmpg=761) ALT (SGPT) (BEAKER) (test 215 U/L 6-55 czdx=561) EGFR (BEAKER) (test 166 mL/min/1.73 sq ESTIMATED GFR IS NOT arvi=7748) m ACCURATE CREATININE CLEARANCE IN PREDICTING GLOMERULAR FILTRATION RATE. ESTIMATED GFR IS NOT APPLICABLE FOR DIALYSIS PATIENTS. PROTHROMBIN [id number] 04:53:00 Test Item Value Reference Range Comments PROTIME (BEAKER) (test guxx=621) 16.0 seconds 11.7-14.7 INR (BEAKER) (test adfr=706) 1.3 <=5.9 RECOMMENDED COUMADIN/WARFARIN INR THERAPY RANGESSTANDARD DOSE: 2.0 - 3.0 Includes: PROPHYLAXIS forvenous thrombosis, systemic embolization; TREATMENT for venous thrombosis and/or pulmonary embolus.HIGH RISK: Target INR is 2.5-3.5 for patients with mechanical heart valves.URINALYSIS W/ REFLEX URINE [id number] 18:43:00 Test Item Value Reference Range Comments COLOR (BEAKER) (test acvt=530) Yellow CLARITY (BEAKER) (test huuk=831) Clear SPECIFIC GRAVITY UA (BEAKER) (test wsty=315) 1.007 1.001-1.035 PH UA (BEAKER) (test hmsr=127) 7.5 5.0-8.0 PROTEIN UA (BEAKER) (test lweq=086) 20 mg/dL Negative GLUCOSE UA (BEAKER) (test ojsf=876) Negative Negative KETONES UA (BEAKER) (test woli=119) 20 mg/dL Negative BILIRUBIN UA (BEAKER) (test uzok=413) Negative Negative BLOOD UA (BEAKER) (test menq=189) Trace Negative NITRITE UA (BEAKER) (test xtai=700) Negative Negative LEUKOCYTE ESTERASE UA (BEAKER) (test vtla=048) Negative Negative UROBILINOGEN UA (BEAKER) (test kmrg=710) 2.0 mg/dL 0.2-1.0 RBC UA (BEAKER) (test xqru=035) 3 /HPF WBC UA (BEAKER) (test qkob=907) < /HPF MUCUS (BEAKER) (test muim=3983) Rare SOURCE(BEAKER) (test eofz=7879) VITAMIN B12 AND [id number] 15:08:00 Test Item Value Reference Range Comments VITAMIN B12 (BEAKER) (test qpye=858) 1678 pg/mL 213-816 FOLATE (BEAKER) (test ksaq=991) 19.4 ng/mL >=7.0 [id number] 14:48:00 Test Item Value Reference Range Comments FERRITIN (BEAKER) (test muem=420) 1698 ng/mL 5-275 IRON, TIBC, % SAT. (WITHOUT FERRITIN)[id number] 13:26:00 Test Item Value Reference Range Comments IRON (BEAKER) (test afks=747) 44.0 ug/dL 40.0-160.0 TOTAL IRON BINDING CAPACITY (BEAKER) (test 186 ug/dL 250-450 gnyc=040) IRON % SATURATION (2) (BEAKER) (test qkhg=6547) 24 % 20-55 HEPATITIS B SURFACE [id number] 13:26:00 Test Item Value Reference Range Comments HEPATITIS B SURFACE ANTIGEN (2) (BEAKER) (test Nonreactive Nonreactive plzn=2354) HEPATITIS C [id number] 13:26:00 Test Item Value Reference Range Comments HEPATITIS C ANTIBODY (BEAKER) (test swpb=851) Nonreactive Nonreactive HIV-1 ANTIGEN WITH HIV-1/2 [id number] 13:26:00 Test Item Value Reference Range Comments HIV-1 ANTIGEN WITH HIV 1\T\2 ANTIBODY (2) Nonreactive Nonreactive (BEAKER) (test zexn=2281) HEPATITIS B SURFACE [id number] 13:19:00 Test Item Value Reference Range Comments HEPATITIS B SURFACE ANTIBODY (BEAKER) (test 34.5 mIU/mL <8.0 tqbf=412) HEPATITIS A ANTIBODY, [id number] 13:19:00 Test Item Value Reference Range Comments HEPATITIS A IGM ANTIBODY (BEAKER) (test Nonreactive Nonreactive sunk=592) HEPATITIS B CORE ANTIBODY, [id number] 13:19:00 Test Item Value Reference Range Comments HEPATITIS B CORE TOTAL ANTIBODY (BEAKER) (test Nonreactive Nonreactive aoxw=435) HEPATITIS A ANTIBODY, [id number] 13:19:00 Test Item Value Reference Range Comments HEPATITIS A IGG ANTIBODY (BEAKER) (test Nonreactive Nonreactive jvdq=8485) PROTHROMBIN [id number] 13:00:00 Test Item Value Reference Range Comments PROTIME (BEAKER) (test exyh=095) 15.5 seconds 11.7-14.7 INR (BEAKER) (test ftqk=565) 1.2 <=5.9 RECOMMENDED COUMADIN/WARFARIN INR THERAPY RANGESSTANDARD DOSE: 2.0 - 3.0 Includes: PROPHYLAXIS forvenous thrombosis, systemic embolization; TREATMENT for venous thrombosis and/or pulmonary embolus.HIGH RISK: Target INR is 2.5-3.5 for patients with mechanical heart valves.[id number] 03:31:00 Test Item Value Reference Range Comments PHOSPHORUS (BEAKER) (test kugh=964) 3.5 mg/dL 2.3-4.7 [id number] 03:31:00 Test Item Value Reference Range Comments MAGNESIUM (BEAKER) (test skdv=496) 1.5 mg/dL 1.6-2.6 COMPREHENSIVE METABOLIC [id number] 03:31:00 Test Item Value Reference Range Comments TOTAL PROTEIN (BEAKER) 6.5 gm/dL 6.0-8.3 (test amgs=535) ALBUMIN (BEAKER) (test 3.7 g/dL 3.5-5.0 qvam=2942) ALKALINE PHOSPHATASE 200 U/L 40-150 (BEAKER) (test kxeo=056) BILIRUBIN TOTAL (BEAKER) 0.8 mg/dL 0.2-1.2 (test fbxw=002) SODIUM (BEAKER) (test 142 meq/L 136-145 vjvv=481) POTASSIUM (BEAKER) (test 3.1 meq/L 3.5-5.1 vhuk=559) CHLORIDE (BEAKER) (test 103 meq/L 98-107 oapf=992) CO2 (BEAKER) (test 24 meq/L 22-29 svcl=660) BLOOD UREA NITROGEN 4 mg/dL 7-21 (BEAKER) (test itdj=506) CREATININE (BEAKER) (test 0.55 mg/dL 0.57-1.25 onsl=116) GLUCOSE RANDOM (BEAKER) 100 mg/dL 70-105 (test zxrr=026) CALCIUM (BEAKER) (test 8.5 mg/dL 8.4-10.2 obnx=064) AST (SGOT) (BEAKER) (test 318 U/L 5-34 gijm=286) ALT (SGPT) (BEAKER) (test 244 U/L 6-55 ezqb=439) EGFR (BEAKER) (test 173 mL/min/1.73 sq ESTIMATED GFR IS NOT ybei=5112) m ACCURATE CREATININE CLEARANCE IN PREDICTING GLOMERULAR FILTRATION RATE. ESTIMATED GFR IS NOT APPLICABLE FOR DIALYSIS PATIENTS. CBC W/PLT COUNT & AUTO [id number] 03:03:00 Test Item Value Reference Range Comments WHITE BLOOD CELL COUNT (BEAKER) (test mgax=391) 4.2 K/ L 3.5-10.5 RED BLOOD CELL COUNT (BEAKER) (test euyz=908) 3.61 M/ L 4.63-6.08 HEMOGLOBIN (BEAKER) (test cpma=185) 12.3 GM/DL 13.7-17.5 HEMATOCRIT (BEAKER) (test bkso=310) 35.9 % 40.1-51.0 MEAN CORPUSCULAR VOLUME (BEAKER) (test hdmc=050) 99.4 fL 79.0-92.2 MEAN CORPUSCULAR HEMOGLOBIN (BEAKER) (test 34.1 pg 25.7-32.2 iarq=696) MEAN CORPUSCULAR HEMOGLOBIN CONC (BEAKER) (test 34.3 GM/DL 32.3-36.5 ejwr=557) RED CELL DISTRIBUTION WIDTH (BEAKER) (test 12.3 % 11.6-14.4 gakh=045) PLATELET COUNT (BEAKER) (test ctep=525) 122 K/CU MM 150-450 MEAN PLATELET VOLUME (BEAKER) (test gjzb=748) 9.8 fL 9.4-12.4 NUCLEATED RED BLOOD CELLS (BEAKER) (test 0 /100 WBC 0-0 xgdv=519) NEUTROPHILS RELATIVE PERCENT (BEAKER) (test 70 % ltdi=616) LYMPHOCYTES RELATIVE PERCENT (BEAKER) (test 17 % vklr=187) MONOCYTES RELATIVE PERCENT (BEAKER) (test 11 % pftu=324) EOSINOPHILS RELATIVE PERCENT (BEAKER) (test 1 % ewfs=411) BASOPHILS RELATIVE PERCENT (BEAKER) (test 1 % oqrz=408) NEUTROPHILS ABSOLUTE COUNT (BEAKER) (test 2.94 K/ L 1.78-5.38 bdfz=061) LYMPHOCYTES ABSOLUTE COUNT (BEAKER) (test 0.73 K/ L 1.32-3.57 byym=996) MONOCYTES ABSOLUTE COUNT (BEAKER) (test 0.45 K/ L 0.30-0.82 pgeg=858) EOSINOPHILS ABSOLUTE COUNT (BEAKER) (test 0.04 K/ L 0.04-0.54 znqd=238) BASOPHILS ABSOLUTE COUNT (BEAKER) (test 0.02 K/ L 0.01-0.08 xzcc=628) IMMATURE GRANULOCYTES-RELATIVE PERCENT (BEAKER) 1 % 0-1 (test wruu=7354) POCT-GLUCOSE [id number] 12:15:00 Test Item Value Reference Range Comments POC-GLUCOSE METER (BEAKER) 99 mg/dL 70-110 TESTED AT [facility] [address] [facility] (test atlq=1437) [facility] [address] [id number] 06:15:00 Test Item Value Reference Range Comments MAGNESIUM (BEAKER) (test gngm=397) 1.8 mg/dL 1.6-2.6 COMPREHENSIVE METABOLIC [id number] 06:15:00 Test Item Value Reference Range Comments TOTAL PROTEIN (BEAKER) 6.6 gm/dL 6.0-8.3 (test mlxq=194) ALBUMIN (BEAKER) (test 3.6 g/dL 3.5-5.0 lrns=3733) ALKALINE PHOSPHATASE 149 U/L 40-150 (BEAKER) (test xxkj=692) BILIRUBIN TOTAL (BEAKER) 0.8 mg/dL 0.2-1.2 (test zhoc=800) SODIUM (BEAKER) (test 135 meq/L 136-145 wcer=233) POTASSIUM (BEAKER) (test 3.6 meq/L 3.5-5.1 jwtc=176) CHLORIDE (BEAKER) (test 98 meq/L 98-107 nzli=123) CO2 (BEAKER) (test 26 meq/L 22-29 vfgd=290) BLOOD UREA NITROGEN 8 mg/dL 7-21 (BEAKER) (test wepb=898) CREATININE (BEAKER) (test 0.57 mg/dL 0.57-1.25 amqe=269) GLUCOSE RANDOM (BEAKER) 100 mg/dL 70-105 (test vanc=016) CALCIUM (BEAKER) (test 9.5 mg/dL 8.4-10.2 yrli=437) AST (SGOT) (BEAKER) (test 155 U/L 5-34 czwf=554) ALT (SGPT) (BEAKER) (test 151 U/L 6-55 zyvc=002) EGFR (BEAKER) (test 166 mL/min/1.73 sq ESTIMATED GFR IS NOT rlmx=8875) m ACCURATE CREATININE CLEARANCE IN PREDICTING GLOMERULAR FILTRATION RATE. ESTIMATED GFR IS NOT APPLICABLE FOR DIALYSIS PATIENTS. CBC W/PLT COUNT & AUTO [id number] 05:30:00 Test Item Value Reference Range Comments WHITE BLOOD CELL COUNT (BEAKER) (test fxvm=109) 5.1 K/ L 3.5-10.5 RED BLOOD CELL COUNT (BEAKER) (test yagr=897) 3.81 M/ L 4.63-6.08 HEMOGLOBIN (BEAKER) (test ygpm=980) 13.1 GM/DL 13.7-17.5 HEMATOCRIT (BEAKER) (test odpc=099) 37.6 % 40.1-51.0 MEAN CORPUSCULAR VOLUME (BEAKER) (test xrgb=247) 98.7 fL 79.0-92.2 MEAN CORPUSCULAR HEMOGLOBIN (BEAKER) (test 34.4 pg 25.7-32.2 iqgo=276) MEAN CORPUSCULAR HEMOGLOBIN CONC (BEAKER) (test 34.8 GM/DL 32.3-36.5 zymu=583) RED CELL DISTRIBUTION WIDTH (BEAKER) (test 11.5 % 11.6-14.4 uutg=130) PLATELET COUNT (BEAKER) (test ledm=703) 152 K/CU MM 150-450 MEAN PLATELET VOLUME (BEAKER) (test nzlt=731) 10.2 fL 9.4-12.4 NUCLEATED RED BLOOD CELLS (BEAKER) (test 0 /100 WBC 0-0 jyzu=937) NEUTROPHILS RELATIVE PERCENT (BEAKER) (test 71 % pvzh=484) LYMPHOCYTES RELATIVE PERCENT (BEAKER) (test 14 % spgl=911) MONOCYTES RELATIVE PERCENT (BEAKER) (test 11 % ipdn=222) EOSINOPHILS RELATIVE PERCENT (BEAKER) (test 2 % tuff=817) BASOPHILS RELATIVE PERCENT (BEAKER) (test 1 % ibjl=907) NEUTROPHILS ABSOLUTE COUNT (BEAKER) (test 3.66 K/ L 1.78-5.38 rkar=827) LYMPHOCYTES ABSOLUTE COUNT (BEAKER) (test 0.71 K/ L 1.32-3.57 mbnj=734) MONOCYTES ABSOLUTE COUNT (BEAKER) (test 0.58 K/ L 0.30-0.82 cgtd=603) EOSINOPHILS ABSOLUTE COUNT (BEAKER) (test 0.10 K/ L 0.04-0.54 ajkl=790) BASOPHILS ABSOLUTE COUNT (BEAKER) (test 0.04 K/ L 0.01-0.08 qlzt=835) IMMATURE GRANULOCYTES-RELATIVE PERCENT (BEAKER) 1 % 0-1 (test uzpx=5284) POCT-GLUCOSE [id number] 11:54:00 Test Item Value Reference Range Comments POC-GLUCOSE METER (BEAKER) 83 mg/dL 70-110 TESTED AT [facility] [address] [facility] (test rzpb=5044) [facility] [address] [id number] 05:54:00 Test Item Value Reference Range Comments PHOSPHORUS (BEAKER) (test plmf=551) 2.3 mg/dL 2.3-4.7 [id number] 05:54:00 Test Item Value Reference Range Comments MAGNESIUM (BEAKER) (test iaay=105) 2.0 mg/dL 1.6-2.6 COMPREHENSIVE METABOLIC [id number] 05:54:00 Test Item Value Reference Range Comments TOTAL PROTEIN (BEAKER) 6.0 gm/dL 6.0-8.3 (test fbpp=196) ALBUMIN (BEAKER) (test 3.2 g/dL 3.5-5.0 mtnn=9411) ALKALINE PHOSPHATASE 134 U/L 40-150 (BEAKER) (test ubrj=798) BILIRUBIN TOTAL (BEAKER) 1.1 mg/dL 0.2-1.2 (test wbdj=472) SODIUM (BEAKER) (test 134 meq/L 136-145 usbg=479) POTASSIUM (BEAKER) (test 3.6 meq/L 3.5-5.1 mtyc=152) CHLORIDE (BEAKER) (test 100 meq/L 98-107 sess=997) CO2 (BEAKER) (test 26 meq/L 22-29 glym=740) BLOOD UREA NITROGEN 4 mg/dL 7-21 (BEAKER) (test gsfr=792) CREATININE (BEAKER) (test 0.54 mg/dL 0.57-1.25 epsl=951) GLUCOSE RANDOM (BEAKER) 141 mg/dL 70-105 (test bdex=979) CALCIUM (BEAKER) (test 8.8 mg/dL 8.4-10.2 miju=475) AST (SGOT) (BEAKER) (test 183 U/L 5-34 gbxu=757) ALT (SGPT) (BEAKER) (test 149 U/L 6-55 wlqf=736) EGFR (BEAKER) (test 176 mL/min/1.73 sq ESTIMATED GFR IS NOT ffsz=4047) m ACCURATE CREATININE CLEARANCE IN PREDICTING GLOMERULAR FILTRATION RATE. ESTIMATED GFR IS NOT APPLICABLE FOR DIALYSIS PATIENTS. LACTIC ACID, [id number] 05:35:00 Test Item Value Reference Range Comments LACTATE BLOOD VENOUS (2) (BEAKER) (test 1.0 mmol/L 0.5-2.2 tusv=5570) CBC W/PLT COUNT & AUTO [id number] 05:23:00 Test Item Value Reference Range Comments WHITE BLOOD CELL COUNT (BEAKER) (test hfqf=806) 5.0 K/ L 3.5-10.5 RED BLOOD CELL COUNT (BEAKER) (test kqas=567) 3.88 M/ L 4.63-6.08 HEMOGLOBIN (BEAKER) (test nskd=073) 13.0 GM/DL 13.7-17.5 HEMATOCRIT (BEAKER) (test hfws=072) 38.5 % 40.1-51.0 MEAN CORPUSCULAR VOLUME (BEAKER) (test hmyp=577) 99.2 fL 79.0-92.2 MEAN CORPUSCULAR HEMOGLOBIN (BEAKER) (test 33.5 pg 25.7-32.2 kyyw=616) MEAN CORPUSCULAR HEMOGLOBIN CONC (BEAKER) (test 33.8 GM/DL 32.3-36.5 cweu=937) RED CELL DISTRIBUTION WIDTH (BEAKER) (test 11.6 % 11.6-14.4 fasu=716) PLATELET COUNT (BEAKER) (test ilfu=855) 113 K/CU MM 150-450 MEAN PLATELET VOLUME (BEAKER) (test lvbf=785) 10.7 fL 9.4-12.4 NUCLEATED RED BLOOD CELLS (BEAKER) (test 0 /100 WBC 0-0 yjqd=499) NEUTROPHILS RELATIVE PERCENT (BEAKER) (test 72 % haem=644) LYMPHOCYTES RELATIVE PERCENT (BEAKER) (test 15 % kvbq=574) MONOCYTES RELATIVE PERCENT (BEAKER) (test 10 % dexb=197) EOSINOPHILS RELATIVE PERCENT (BEAKER) (test 2 % xoan=036) BASOPHILS RELATIVE PERCENT (BEAKER) (test 1 % vtut=002) NEUTROPHILS ABSOLUTE COUNT (BEAKER) (test 3.56 K/ L 1.78-5.38 iyzd=730) LYMPHOCYTES ABSOLUTE COUNT (BEAKER) (test 0.76 K/ L 1.32-3.57 acgl=622) MONOCYTES ABSOLUTE COUNT (BEAKER) (test 0.49 K/ L 0.30-0.82 hpam=842) EOSINOPHILS ABSOLUTE COUNT (BEAKER) (test 0.10 K/ L 0.04-0.54 hlkp=395) BASOPHILS ABSOLUTE COUNT (BEAKER) (test 0.04 K/ L 0.01-0.08 ijlx=993) IMMATURE GRANULOCYTES-RELATIVE PERCENT (BEAKER) 1 % 0-1 (test onbd=6381) POCT-GLUCOSE [id number] 18:44:00 Test Item Value Reference Range Comments POC-GLUCOSE METER (BEAKER) 100 mg/dL 70-110 TESTED AT [facility] [address] [facility] (test cjim=9257) [facility] [address] [id number] 17:58:00 Test Item Value Reference Range Comments PHOSPHORUS (BEAKER) (test lobl=635) 2.3 mg/dL 2.3-4.7 [id number] 17:58:00 Test Item Value Reference Range Comments MAGNESIUM (BEAKER) (test gymi=802) 1.8 mg/dL 1.6-2.6 BASIC METABOLIC [id number] 17:58:00 Test Item Value Reference Range Comments SODIUM (BEAKER) (test 137 meq/L 136-145 zmbb=826) POTASSIUM (BEAKER) (test 3.6 meq/L 3.5-5.1 kshw=675) CHLORIDE (BEAKER) (test 102 meq/L 98-107 lbju=646) CO2 (BEAKER) (test 26 meq/L 22-29 lomy=497) BLOOD UREA NITROGEN 4 mg/dL 7-21 (BEAKER) (test jkio=556) CREATININE (BEAKER) (test 0.54 mg/dL 0.57-1.25 zuse=137) GLUCOSE RANDOM (BEAKER) 123 mg/dL 70-105 (test vvly=379) CALCIUM (BEAKER) (test 8.7 mg/dL 8.4-10.2 tpbs=725) EGFR (BEAKER) (test 177 mL/min/1.73 sq m ESTIMATED GFR IS NOT mzbe=9021) ACCURATE CREATININE CLEARANCE IN PREDICTING GLOMERULAR FILTRATION RATE. ESTIMATED GFR IS NOT APPLICABLE FOR DIALYSIS PATIENTS. [id number] 16:55:00 Test Item Value Reference Range Comments MAGNESIUM (BEAKER) (test 1.6 mg/dL 1.6-2.6 Specimen slightly hemolyzed oryb=858) [id number] 16:55:00 Test Item Value Reference Range Comments PHOSPHORUS (BEAKER) (test 2.3 mg/dL 2.3-4.7 Specimen slightly hemolyzed kkqu=253) BASIC METABOLIC [id number] 16:55:00 Test Item Value Reference Range Comments SODIUM (BEAKER) (test 138 meq/L 136-145 sjao=476) POTASSIUM (BEAKER) (test 3.7 meq/L 3.5-5.1 Specimen slightly zuwq=130) hemolyzed CHLORIDE (BEAKER) (test 105 meq/L 98-107 ggwu=235) CO2 (BEAKER) (test 23 meq/L 22-29 lods=894) BLOOD UREA NITROGEN 4 mg/dL 7-21 (BEAKER) (test rggy=399) CREATININE (BEAKER) (test 0.51 mg/dL 0.57-1.25 Specimen slightly zgpm=611) hemolyzed GLUCOSE RANDOM (BEAKER) 99 mg/dL 70-105 (test syht=544) CALCIUM (BEAKER) (test 8.0 mg/dL 8.4-10.2 gbdh=565) EGFR (BEAKER) (test 190 mL/min/1.73 sq m ESTIMATED GFR IS NOT sccv=2156) ACCURATE CREATININE CLEARANCE IN PREDICTING GLOMERULAR FILTRATION RATE. ESTIMATED GFR IS NOT APPLICABLE FOR DIALYSIS PATIENTS. POCT-GLUCOSE [id number] 12:41:00 Test Item Value Reference Range Comments POC-GLUCOSE METER (BEAKER) 100 mg/dL 70-110 TESTED AT [facility] [address] [facility] (test comd=9624) [facility] [address] POCT-GLUCOSE [id number] 08:07:00 Test Item Value Reference Range Comments POC-GLUCOSE METER (BEAKER) 99 mg/dL 70-110 TESTED AT [facility] [address] [facility] (test cejs=9958) [facility] [address] U/S, ABDOMINAL, [id number] 08:05:00Abdomen limited area? Add comment if clarification [...] be secondary to portal hypertension. Signed: [facility] Verified Date /Time: 09/30/2018 08:05:48 Reading Location: [place] [id number] Ultrasound Reading Room [id number] 07:23:00 Test Item Value Reference Range Comments PHOSPHORUS (BEAKER) (test wzzs=542) 1.2 mg/dL 2.3-4.7 [id number] 07:11:00 Test Item Value Reference Range Comments MAGNESIUM (BEAKER) (test aebc=841) 2.3 mg/dL 1.6-2.6 COMPREHENSIVE METABOLIC [id number] 07:11:00 Test Item Value Reference Range Comments TOTAL PROTEIN (BEAKER) 5.8 gm/dL 6.0-8.3 (test bwmp=674) ALBUMIN (BEAKER) (test 3.1 g/dL 3.5-5.0 aotv=0203) ALKALINE PHOSPHATASE 141 U/L 40-150 (BEAKER) (test bzeb=834) BILIRUBIN TOTAL (BEAKER) 1.1 mg/dL 0.2-1.2 (test aaok=534) SODIUM (BEAKER) (test 135 meq/L 136-145 sxdz=270) POTASSIUM (BEAKER) (test 3.7 meq/L 3.5-5.1 epfa=060) CHLORIDE (BEAKER) (test 104 meq/L 98-107 oggp=815) CO2 (BEAKER) (test 24 meq/L 22-29 ibnw=393) BLOOD UREA NITROGEN 5 mg/dL 7-21 (BEAKER) (test sfhc=378) CREATININE (BEAKER) (test 0.39 mg/dL 0.57-1.25 bcpg=832) GLUCOSE RANDOM (BEAKER) 114 mg/dL 70-105 (test crtu=711) CALCIUM (BEAKER) (test 8.3 mg/dL 8.4-10.2 kuil=048) AST (SGOT) (BEAKER) (test 354 U/L 5-34 blrk=296) ALT (SGPT) (BEAKER) (test 188 U/L 6-55 wtaa=164) EGFR (BEAKER) (test 258 mL/min/1.73 sq ESTIMATED GFR IS NOT ugid=7078) m ACCURATE CREATININE CLEARANCE IN PREDICTING GLOMERULAR FILTRATION RATE. ESTIMATED GFR IS NOT APPLICABLE FOR DIALYSIS PATIENTS. LACTIC ACID, [id number] 04:07:00 Test Item Value Reference Range Comments LACTATE BLOOD VENOUS (2) 0.8 mmol/L 0.5-2.2 Specimen slightly hemolyzed (BEAKER) (test wngd=2964) CBC W/PLT COUNT & AUTO [id number] 04:00:00 Test Item Value Reference Range Comments WHITE BLOOD CELL COUNT (BEAKER) (test bbku=516) 6.1 K/ L 3.5-10.5 RED BLOOD CELL COUNT (BEAKER) (test dugu=611) 3.87 M/ L 4.63-6.08 HEMOGLOBIN (BEAKER) (test rlnc=471) 13.3 GM/DL 13.7-17.5 HEMATOCRIT (BEAKER) (test vbuc=802) 39.1 % 40.1-51.0 MEAN CORPUSCULAR VOLUME (BEAKER) (test guxu=149) 101.0 fL 79.0-92.2 MEAN CORPUSCULAR HEMOGLOBIN (BEAKER) (test 34.4 pg 25.7-32.2 ddgu=450) MEAN CORPUSCULAR HEMOGLOBIN CONC (BEAKER) (test 34.0 GM/DL 32.3-36.5 hrvf=467) RED CELL DISTRIBUTION WIDTH (BEAKER) (test 12.1 % 11.6-14.4 gmbn=710) PLATELET COUNT (BEAKER) (test ewpt=760) 105 K/CU MM 150-450 MEAN PLATELET VOLUME (BEAKER) (test wcjg=631) 10.4 fL 9.4-12.4 NUCLEATED RED BLOOD CELLS (BEAKER) (test 0 /100 WBC 0-0 iqrd=905) NEUTROPHILS RELATIVE PERCENT (BEAKER) (test 74 % neer=973) LYMPHOCYTES RELATIVE PERCENT (BEAKER) (test 14 % fyau=449) MONOCYTES RELATIVE PERCENT (BEAKER) (test 10 % idpd=809) EOSINOPHILS RELATIVE PERCENT (BEAKER) (test 1 % dfse=738) BASOPHILS RELATIVE PERCENT (BEAKER) (test 1 % rerk=408) NEUTROPHILS ABSOLUTE COUNT (BEAKER) (test 4.52 K/ L 1.78-5.38 ukgm=591) LYMPHOCYTES ABSOLUTE COUNT (BEAKER) (test 0.84 K/ L 1.32-3.57 vsgk=560) MONOCYTES ABSOLUTE COUNT (BEAKER) (test 0.62 K/ L 0.30-0.82 trfq=457) EOSINOPHILS ABSOLUTE COUNT (BEAKER) (test 0.06 K/ L 0.04-0.54 dojj=900) BASOPHILS ABSOLUTE COUNT (BEAKER) (test 0.03 K/ L 0.01-0.08 uyyi=652) IMMATURE GRANULOCYTES-RELATIVE PERCENT (BEAKER) 0 % 0-1 (test dvls=9016) [id number] 01:32:00 Test Item Value Reference Range Comments PROCALCITONIN (BEAKER) (test cqkm=5417) 0.48 ng/mL <0.05 SEPSIS RISK (ng/mL)Low: 0.05-0.50Intermediate: 0.51-2.00High: & gt;=2.01BASIC METABOLIC [id number] 00:58:00 Test Item Value Reference Range Comments SODIUM (BEAKER) (test 135 meq/L 136-145 txbw=331) POTASSIUM (BEAKER) (test 3.4 meq/L 3.5-5.1 swzt=134) CHLORIDE (BEAKER) (test 104 meq/L 98-107 nebk=183) CO2 (BEAKER) (test 22 meq/L 22-29 myge=450) BLOOD UREA NITROGEN 7 mg/dL 7-21 (BEAKER) (test fyrq=869) CREATININE (BEAKER) (test 0.55 mg/dL 0.57-1.25 mwom=810) GLUCOSE RANDOM (BEAKER) 113 mg/dL 70-105 (test tjog=349) CALCIUM (BEAKER) (test 8.4 mg/dL 8.4-10.2 fiif=304) EGFR (BEAKER) (test 174 mL/min/1.73 sq m ESTIMATED GFR IS NOT xgrw=0808) ACCURATE CREATININE CLEARANCE IN PREDICTING GLOMERULAR FILTRATION RATE. ESTIMATED GFR IS NOT APPLICABLE FOR DIALYSIS PATIENTS. [id number] 00:57:00 Test Item Value Reference Range Comments MAGNESIUM (BEAKER) (test rnhi=771) 1.5 mg/dL 1.6-2.6 LACTIC ACID, [id number] 00:37:00 Test Item Value Reference Range Comments LACTATE BLOOD VENOUS (2) 0.7 mmol/L 0.5-2.2 Specimen moderately hemolyzed (BEAKER) (test epub=1569) POCT-GLUCOSE [id number] 00:25:00 Test Item Value Reference Range Comments POC-GLUCOSE METER (BEAKER) 101 mg/dL 70-110 TESTED AT [address] (test qqod=9067) [place] [id number] POCT-GLUCOSE [id number] 18:32:00 Test Item Value Reference Range Comments POC-GLUCOSE METER (BEAKER) 76 mg/dL 70-110 TESTED AT [address] (test lvre=9917) [place] [address] [id number] 15:15:00 Test Item Value Reference Range Comments POTASSIUM (BEAKER) (test quoa=697) 3.4 meq/L 3.5-5.1 [id number] 15:15:00 Test Item Value Reference Range Comments MAGNESIUM (BEAKER) (test oujt=790) 2.1 mg/dL 1.6-2.6 CT, [id number] 12:38:00FINAL REPORT CT abdomen with and without [...] Verified Date/Time: 09/29/2018 12:38:07 Reading Location : [address] Reading Room POCT-GLUCOSE [id number] 11:49:00 Test Item Value Reference Range Comments POC-GLUCOSE METER (BEAKER) 83 mg/dL 70-110 TESTED AT [facility] [address] [facility] (test gtmv=2662) [facility] [address] [id number] 10:49:00 Test Item Value Reference Range Comments TRIGLYCERIDES (BEAKER) (test 71 mg/dL Specimen slightly hemolyzed zngg=467) TRIGLYCERIDE REFERENCE RANGELow Risk <150Borderline Risk 150-199High Risk 200-499Very High Risk>=[id number] 05:09:00 Test Item Value Reference Range Comments LIPASE (BEAKER) (test botl=559) > U/L 8-78 [id number] 04:35:00 Test Item Value Reference Range Comments MAGNESIUM (BEAKER) (test 1.6 mg/dL 1.6-2.6 Specimen slightly hemolyzed hbnv=438) [id number] 04:35:00 Test Item Value Reference Range Comments PHOSPHORUS (BEAKER) (test 3.2 mg/dL 2.3-4.7 Specimen slightly hemolyzed lxbc=988) COMPREHENSIVE METABOLIC [id number] 04:35:00 Test Item Value Reference Range Comments TOTAL PROTEIN (BEAKER) 6.8 gm/dL 6.0-8.3 Specimen slightly (test vwmt=046) hemolyzed ALBUMIN (BEAKER) (test 3.8 g/dL 3.5-5.0 Specimen slightly incr=1167) hemolyzed ALKALINE PHOSPHATASE 130 U/L 40-150 (BEAKER) (test rwbh=414) BILIRUBIN TOTAL (BEAKER) 1.7 mg/dL 0.2-1.2 Specimen slightly (test jngh=077) hemolyzed SODIUM (BEAKER) (test 138 meq/L 136-145 tiyn=396) POTASSIUM (BEAKER) (test 3.7 meq/L 3.5-5.1 Specimen slightly kglv=948) hemolyzed CHLORIDE (BEAKER) (test 103 meq/L 98-107 lyzg=556) CO2 (BEAKER) (test 17 meq/L 22-29 vbap=445) BLOOD UREA NITROGEN 9 mg/dL 7-21 (BEAKER) (test ehep=786) CREATININE (BEAKER) (test 0.65 mg/dL 0.57-1.25 Specimen slightly belt=329) hemolyzed GLUCOSE RANDOM (BEAKER) 103 mg/dL 70-105 (test vrta=262) CALCIUM (BEAKER) (test 8.7 mg/dL 8.4-10.2 bsoa=485) AST (SGOT) (BEAKER) (test 151 U/L 5-34 Specimen slightly tjnn=522) hemolyzed ALT (SGPT) (BEAKER) (test 143 U/L 6-55 Specimen slightly zytm=733) hemolyzed EGFR (BEAKER) (test 143 mL/min/1.73 sq ESTIMATED GFR IS NOT mmaz=4977) m ACCURATE CREATININE CLEARANCE IN PREDICTING GLOMERULAR FILTRATION RATE. ESTIMATED GFR IS NOT APPLICABLE FOR DIALYSIS PATIENTS. PROTHROMBIN [id number] 04:34:00 Test Item Value Reference Range Comments PROTIME (BEAKER) (test uxwx=749) 14.6 seconds 11.7-14.7 INR (BEAKER) (test rfrb=631) 1.1 <=5.9 RECOMMENDED COUMADIN/WARFARIN INR THERAPY RANGESSTANDARD DOSE: 2.0 - 3.0 Includes: PROPHYLAXIS forvenous thrombosis, systemic embolization; TREATMENT for venous thrombosis and/or pulmonary embolus.HIGH RISK: Target INR is 2.5-3.5 for patients with mechanical heart valves.CBC W/PLT COUNT & AUTO [id number] 04:09:00 Test Item Value Reference Range Comments WHITE BLOOD CELL COUNT (BEAKER) (test ugya=004) 6.2 K/ L 3.5-10.5 RED BLOOD CELL COUNT (BEAKER) (test spce=840) 4.33 M/ L 4.63-6.08 HEMOGLOBIN (BEAKER) (test dxbu=353) 15.0 GM/DL 13.7-17.5 HEMATOCRIT (BEAKER) (test alqa=299) 43.2 % 40.1-51.0 MEAN CORPUSCULAR VOLUME (BEAKER) (test evko=486) 99.8 fL 79.0-92.2 MEAN CORPUSCULAR HEMOGLOBIN (BEAKER) (test 34.6 pg 25.7-32.2 hchb=945) MEAN CORPUSCULAR HEMOGLOBIN CONC (BEAKER) (test 34.7 GM/DL 32.3-36.5 jdiq=345) RED CELL DISTRIBUTION WIDTH (BEAKER) (test 12.4 % 11.6-14.4 tdbm=332) PLATELET COUNT (BEAKER) (test zmhe=864) 160 K/CU MM 150-450 MEAN PLATELET VOLUME (BEAKER) (test yfwf=463) 10.4 fL 9.4-12.4 NUCLEATED RED BLOOD CELLS (BEAKER) (test 0 /100 WBC 0-0 sdjc=521) NEUTROPHILS RELATIVE PERCENT (BEAKER) (test 81 % ogvr=117) LYMPHOCYTES RELATIVE PERCENT (BEAKER) (test 7 % ipze=045) MONOCYTES RELATIVE PERCENT (BEAKER) (test 10 % bajr=328) EOSINOPHILS RELATIVE PERCENT (BEAKER) (test 0 % teng=978) BASOPHILS RELATIVE PERCENT (BEAKER) (test 1 % pkjl=280) NEUTROPHILS ABSOLUTE COUNT (BEAKER) (test 5.01 K/ L 1.78-5.38 rmrn=022) LYMPHOCYTES ABSOLUTE COUNT (BEAKER) (test 0.44 K/ L 1.32-3.57 ypxw=733) MONOCYTES ABSOLUTE COUNT (BEAKER) (test 0.62 K/ L 0.30-0.82 jkuk=964) EOSINOPHILS ABSOLUTE COUNT (BEAKER) (test 0.01 K/ L 0.04-0.54 fzin=255) BASOPHILS ABSOLUTE COUNT (BEAKER) (test 0.03 K/ L 0.01-0.08 zcgv=012) IMMATURE GRANULOCYTES-RELATIVE PERCENT (BEAKER) 1 % 0-1 (test qdzb=8751)
--- NOTE | 2019-05-26 08:39 | EKG ---
Test Date: 2019-05-25 Test Time: 16:13:10 Insulation Applicator: AMANDA MEASUREMENT RESULTS: Intervals: Rate: 141 MD: 120 QRSD: 82 QT: 358 QTc: 548 [place]: P: 58 MD: 120 QRS: 75 T: 51 INTERPRETIVE STATEMENTS: Sinus tachycardia Nonspecific T wave abnormality Abnormal ECG Compared to ECG 03/02/2019 18:03:19 T-wave abnormality now present Electronically Signed On 05-26-19 08:37:49 PRINTED [employer]ARD LAYOUT DESIGNER by Siddharth De Leon
== END 2019-05-25 20:04 | disposition home or self-care (01) ==
LOC: ER 15:54
DX: K29.70 Gastritis, unspecified, without bleeding (principal); K29.80 Duodenitis without bleeding; I10 Essential (primary) hypertension; F17.210 Nicotine dependence, cigarettes, uncomplicated
CPT/HCPCS: 36415; 71045; 74177; 80048; 80076; 80320; 80329; 82140; 83690; 85025; 85610; 85730; 93005; 96374; 96375; 99284; J2405; J3360; J3411; J7030; J7120; Q9967

== ENCOUNTER 2019-05-26 08:28 | Emergency (ER) | payer SELFPAY ==
--- OUTSIDE RECORDS SUMMARY | 2019-05-26 08:35 | XMS REPORT ---
:1985 [facility] [address] [place] [address] Care Team Providers Name Role Phone DMITRI [...] Value Reference Range Comments LIPASE (BEAKER) (test zknp=212) 257 U/L 8-78 BASIC METABOLIC [id number] 03:05:00 Test Item Value Reference Range Comments SODIUM (BEAKER) (test 136 meq/L 136-145 apqc=925) POTASSIUM (BEAKER) (test 4.5 meq/L 3.5-5.1 Specimen slightly gshy=137) hemolyzed CHLORIDE (BEAKER) (test 104 meq/L 98-107 dvad=681) CO2 (BEAKER) (test 25 meq/L 22-29 xdpz=260) BLOOD UREA NITROGEN 5 mg/dL 7-21 (BEAKER) (test jtwt=793) CREATININE (BEAKER) (test 0.57 mg/dL 0.57-1.25 Specimen slightly rziy=565) hemolyzed GLUCOSE RANDOM (BEAKER) 87 mg/dL 70-105 (test nqau=528) CALCIUM (BEAKER) (test 8.4 mg/dL 8.4-10.2 aepo=027) EGFR (BEAKER) (test 166 mL/min/1.73 sq m ESTIMATED GFR IS NOT ulnf=7536) ACCURATE CREATININE CLEARANCE IN PREDICTING GLOMERULAR FILTRATION RATE. ESTIMATED GFR IS NOT APPLICABLE FOR DIALYSIS PATIENTS. BASIC METABOLIC [id number] 04:41:00 Test Item Value Reference Range Comments SODIUM (BEAKER) (test 134 meq/L 136-145 dsjz=476) POTASSIUM (BEAKER) (test 3.9 meq/L 3.5-5.1 Specimen slightly vkms=389) hemolyzed CHLORIDE (BEAKER) (test 102 meq/L 98-107 yqlt=014) CO2 (BEAKER) (test 26 meq/L 22-29 otns=135) BLOOD UREA NITROGEN 3 mg/dL 7-21 (BEAKER) (test kish=169) CREATININE (BEAKER) (test 0.50 mg/dL 0.57-1.25 Specimen slightly hpvv=957) hemolyzed GLUCOSE RANDOM (BEAKER) 95 mg/dL 70-105 (test lzxt=885) CALCIUM (BEAKER) (test 7.9 mg/dL 8.4-10.2 arfp=035) EGFR (BEAKER) (test 193 mL/min/1.73 sq m ESTIMATED GFR IS NOT cwjl=2877) ACCURATE CREATININE CLEARANCE IN PREDICTING GLOMERULAR FILTRATION RATE. ESTIMATED GFR IS NOT APPLICABLE FOR DIALYSIS PATIENTS. [id number] 04:31:00 Test Item Value Reference Range Comments LIPASE (BEAKER) (test mnvt=757) 334 U/L 8-78 TROPONIN [id number] 03:00:00 Test Item Value Reference Range Comments TROPONIN I (BEAKER) (test knpw=396) < ng/mL 0.00-0.03 Troponin I (TnI) levels [...] failure, acidosis, acute neurological disease, and persistent tachyarrhythmia.[id number] 02:54:00 Test Item Value Reference Range Comments MAGNESIUM (BEAKER) (test 1.9 mg/dL 1.6-2.6 Specimen slightly hemolyzed wrok=554) BASIC METABOLIC [id number] 02:54:00 Test Item Value Reference Range Comments SODIUM (BEAKER) (test 136 meq/L 136-145 grip=385) POTASSIUM (BEAKER) (test 3.8 meq/L 3.5-5.1 Specimen slightly euwb=421) hemolyzed CHLORIDE (BEAKER) (test 100 meq/L 98-107 ysiu=543) CO2 (BEAKER) (test 28 meq/L 22-29 xtpa=196) BLOOD UREA NITROGEN 3 mg/dL 7-21 (BEAKER) (test vgro=841) CREATININE (BEAKER) (test 0.56 mg/dL 0.57-1.25 Specimen slightly rjno=850) hemolyzed GLUCOSE RANDOM (BEAKER) 111 mg/dL 70-105 (test uyye=888) CALCIUM (BEAKER) (test 8.3 mg/dL 8.4-10.2 hdgx=606) EGFR (BEAKER) (test 169 mL/min/1.73 sq m ESTIMATED GFR IS NOT cbhp=4277) ACCURATE CREATININE CLEARANCE IN PREDICTING GLOMERULAR FILTRATION RATE. ESTIMATED GFR IS NOT APPLICABLE FOR DIALYSIS PATIENTS. [id number] 02:54:00 Test Item Value Reference Range Comments LIPASE (BEAKER) (test slrc=793) 755 U/L 8-78 CBC W/PLT COUNT & AUTO [id number] 02:33:00 Test Item Value Reference Range Comments WHITE BLOOD CELL COUNT (BEAKER) (test bfgx=802) 5.7 K/ L 3.5-10.5 RED BLOOD CELL COUNT (BEAKER) (test iurv=775) 3.90 M/ L 4.63-6.08 HEMOGLOBIN (BEAKER) (test rpkb=494) 12.0 GM/DL 13.7-17.5 HEMATOCRIT (BEAKER) (test twho=941) 36.5 % 40.1-51.0 MEAN CORPUSCULAR VOLUME (BEAKER) (test dzwx=302) 93.6 fL 79.0-92.2 MEAN CORPUSCULAR HEMOGLOBIN (BEAKER) (test 30.8 pg 25.7-32.2 xwme=583) MEAN CORPUSCULAR HEMOGLOBIN CONC (BEAKER) (test 32.9 GM/DL 32.3-36.5 cfzc=671) RED CELL DISTRIBUTION WIDTH (BEAKER) (test 13.6 % 11.6-14.4 iwnc=525) PLATELET COUNT (BEAKER) (test nkoe=059) 155 K/CU MM 150-450 MEAN PLATELET VOLUME (BEAKER) (test qzcs=500) 9.4 fL 9.4-12.4 NUCLEATED RED BLOOD CELLS (BEAKER) (test 0 /100 WBC 0-0 qzak=180) NEUTROPHILS RELATIVE PERCENT (BEAKER) (test 70 % dxxe=767) LYMPHOCYTES RELATIVE PERCENT (BEAKER) (test 19 % sbaq=576) MONOCYTES RELATIVE PERCENT (BEAKER) (test 8 % riqm=717) EOSINOPHILS RELATIVE PERCENT (BEAKER) (test 2 % yuqk=328) BASOPHILS RELATIVE PERCENT (BEAKER) (test 1 % vtno=424) NEUTROPHILS ABSOLUTE COUNT (BEAKER) (test 4.03 K/ L 1.78-5.38 tvxy=890) LYMPHOCYTES ABSOLUTE COUNT (BEAKER) (test 1.07 K/ L 1.32-3.57 myle=494) MONOCYTES ABSOLUTE COUNT (BEAKER) (test 0.45 K/ L 0.30-0.82 uwqu=836) EOSINOPHILS ABSOLUTE COUNT (BEAKER) (test 0.12 K/ L 0.04-0.54 fjpk=314) BASOPHILS ABSOLUTE COUNT (BEAKER) (test 0.05 K/ L 0.01-0.08 xyxe=930) IMMATURE GRANULOCYTES-RELATIVE PERCENT (BEAKER) 0 % 0-1 (test vkym=9862) RAD, CHEST, 1 VIEW, NON [id number] 02:26:00Reason for exam:->pleuritic chest painShould this be [...] To [facility] MDReport Verified Date/Time: 03/22/2019 02:26:18 [id number] 08:35:00 Test Item Value Reference Range Comments MAGNESIUM (BEAKER) (test 1.4 mg/dL 1.6-2.6 Specimen slightly hemolyzed qoah=312) BASIC METABOLIC [id number] 08:35:00 Test Item Value Reference Range Comments SODIUM (BEAKER) (test 138 meq/L 136-145 yabk=270) POTASSIUM (BEAKER) (test 3.7 meq/L 3.5-5.1 Specimen slightly vtft=541) hemolyzed CHLORIDE (BEAKER) (test 102 meq/L 98-107 twvu=866) CO2 (BEAKER) (test 23 meq/L 22-29 ipjk=277) BLOOD UREA NITROGEN 4 mg/dL 7-21 (BEAKER) (test zfjj=802) CREATININE (BEAKER) (test 0.48 mg/dL 0.57-1.25 Specimen slightly jvte=153) hemolyzed GLUCOSE RANDOM (BEAKER) 53 mg/dL 70-105 (test ymax=178) CALCIUM (BEAKER) (test 8.1 mg/dL 8.4-10.2 mhka=542) EGFR (BEAKER) (test 202 mL/min/1.73 sq m ESTIMATED GFR IS NOT gsfh=7804) ACCURATE CREATININE CLEARANCE IN PREDICTING GLOMERULAR FILTRATION RATE. ESTIMATED GFR IS NOT APPLICABLE FOR DIALYSIS PATIENTS. HEPATIC FUNCTION [id number] 08:35:00 Test Item Value Reference Range Comments TOTAL PROTEIN (BEAKER) (test 6.2 gm/dL 6.0-8.3 Specimen slightly hemolyzed uemd=598) ALBUMIN (BEAKER) (test 2.7 g/dL 3.5-5.0 Specimen slightly hemolyzed anzr=3657) BILIRUBIN TOTAL (BEAKER) (test 0.5 mg/dL 0.2-1.2 Specimen slightly hemolyzed ovfw=018) BILIRUBIN DIRECT (BEAKER) (test 0.3 mg/dL 0.1-0.5 Specimen slightly hemolyzed jukg=399) ALKALINE PHOSPHATASE (BEAKER) 151 U/L 40-150 (test vywo=932) AST (SGOT) (BEAKER) (test 64 U/L 5-34 Specimen slightly hemolyzed bjzk=572) ALT (SGPT) (BEAKER) (test 21 U/L 6-55 Specimen slightly hemolyzed qjxq=707) [id number] 08:35:00 Test Item Value Reference Range Comments LIPASE (BEAKER) (test zbyr=187) 242 U/L 8-78 CBC W/PLT COUNT & AUTO [id number] 06:25:00 Test Item Value Reference Range Comments WHITE BLOOD CELL COUNT (BEAKER) (test jhuv=257) 4.2 K/ L 3.5-10.5 RED BLOOD CELL COUNT (BEAKER) (test grsc=827) 4.14 M/ L 4.63-6.08 HEMOGLOBIN (BEAKER) (test oovt=825) 12.7 GM/DL 13.7-17.5 HEMATOCRIT (BEAKER) (test ugdu=652) 39.8 % 40.1-51.0 MEAN CORPUSCULAR VOLUME (BEAKER) (test oudc=010) 96.1 fL 79.0-92.2 MEAN CORPUSCULAR HEMOGLOBIN (BEAKER) (test 30.7 pg 25.7-32.2 talv=468) MEAN CORPUSCULAR HEMOGLOBIN CONC (BEAKER) (test 31.9 GM/DL 32.3-36.5 hcow=119) RED CELL DISTRIBUTION WIDTH (BEAKER) (test 13.5 % 11.6-14.4 rtrb=596) PLATELET COUNT (BEAKER) (test hdui=172) 186 K/CU MM 150-450 MEAN PLATELET VOLUME (BEAKER) (test xpip=129) 10.9 fL 9.4-12.4 NUCLEATED RED BLOOD CELLS (BEAKER) (test 0 /100 WBC 0-0 cfcb=434) NEUTROPHILS RELATIVE PERCENT (BEAKER) (test 55 % jsfd=564) LYMPHOCYTES RELATIVE PERCENT (BEAKER) (test 31 % eovx=854) MONOCYTES RELATIVE PERCENT (BEAKER) (test 8 % smmy=664) EOSINOPHILS RELATIVE PERCENT (BEAKER) (test 5 % qhhm=914) BASOPHILS RELATIVE PERCENT (BEAKER) (test 1 % zuiy=418) NEUTROPHILS ABSOLUTE COUNT (BEAKER) (test 2.28 K/ L 1.78-5.38 ytme=131) LYMPHOCYTES ABSOLUTE COUNT (BEAKER) (test 1.28 K/ L 1.32-3.57 iujm=228) MONOCYTES ABSOLUTE COUNT (BEAKER) (test 0.35 K/ L 0.30-0.82 zaad=905) EOSINOPHILS ABSOLUTE COUNT (BEAKER) (test 0.21 K/ L 0.04-0.54 hwxy=119) BASOPHILS ABSOLUTE COUNT (BEAKER) (test 0.05 K/ L 0.01-0.08 oudu=631) IMMATURE GRANULOCYTES-RELATIVE PERCENT (BEAKER) 0 % 0-1 (test vpti=7997) [id number] 07:42:00 Test Item Value Reference Range Comments MAGNESIUM (BEAKER) (test iaok=756) 1.5 mg/dL 1.6-2.6 BASIC METABOLIC [id number] 07:42:00 Test Item Value Reference Range Comments SODIUM (BEAKER) (test 140 meq/L 136-145 qoud=785) POTASSIUM (BEAKER) (test 3.3 meq/L 3.5-5.1 wwci=938) CHLORIDE (BEAKER) (test 106 meq/L 98-107 dxly=427) CO2 (BEAKER) (test 27 meq/L 22-29 xqdh=776) BLOOD UREA NITROGEN 6 mg/dL 7-21 (BEAKER) (test xvph=220) CREATININE (BEAKER) (test 0.53 mg/dL 0.57-1.25 pila=969) GLUCOSE RANDOM (BEAKER) 81 mg/dL 70-105 (test kwwt=141) CALCIUM (BEAKER) (test 8.2 mg/dL 8.4-10.2 ocax=690) EGFR (BEAKER) (test 180 mL/min/1.73 sq m ESTIMATED GFR IS NOT brbf=2971) ACCURATE CREATININE CLEARANCE IN PREDICTING GLOMERULAR FILTRATION RATE. ESTIMATED GFR IS NOT APPLICABLE FOR DIALYSIS PATIENTS. LIPID [id number] 07:42:00 Test Item Value Reference Range Comments TRIGLYCERIDES (BEAKER) (test hnxf=659) 63 mg/dL CHOLESTEROL (BEAKER) (test uoad=243) 101 mg/dL HDL CHOLESTEROL (BEAKER) (test oqua=500) 20 mg/dL LDL CHOLESTEROL CALCULATED (BEAKER) (test 68 mg/dL ecrk=278) Triglyceride Reference Range: Low Risk <150 Borderline 150- 199 High Risk 200-499 Very High Risk >=500Cholesterol Reference Range: Low Risk <200 Borderline 200-239 High Risk > 240HDL Cholesterol Reference Range: Low Risk >=60 High Risk <40LDL Cholesterol Reference Range: Optimal <100 Near Optimal 100-129 Borderline 130-159 High 160-189 Very High >=190HEPATIC FUNCTION [id number] 07:42:00 Test Item Value Reference Range Comments TOTAL PROTEIN (BEAKER) (test cfwn=880) 6.1 gm/dL 6.0-8.3 ALBUMIN (BEAKER) (test watg=8998) 2.7 g/dL 3.5-5.0 BILIRUBIN TOTAL (BEAKER) (test rdql=892) 0.6 mg/dL 0.2-1.2 BILIRUBIN DIRECT (BEAKER) (test scla=142) 0.4 mg/dL 0.1-0.5 ALKALINE PHOSPHATASE (BEAKER) (test bmkz=809) 157 U/L 40-150 AST (SGOT) (BEAKER) (test ngaz=242) 58 U/L 5-34 ALT (SGPT) (BEAKER) (test vavr=170) 21 U/L 6-55 CBC W/PLT COUNT & AUTO [id number] 05:47:00 Test Item Value Reference Range Comments WHITE BLOOD CELL COUNT (BEAKER) (test kdcp=631) 4.3 K/ L 3.5-10.5 RED BLOOD CELL COUNT (BEAKER) (test ropk=232) 3.66 M/ L 4.63-6.08 HEMOGLOBIN (BEAKER) (test sagg=390) 11.4 GM/DL 13.7-17.5 HEMATOCRIT (BEAKER) (test vyol=820) 35.8 % 40.1-51.0 MEAN CORPUSCULAR VOLUME (BEAKER) (test tosj=606) 97.8 fL 79.0-92.2 MEAN CORPUSCULAR HEMOGLOBIN (BEAKER) (test 31.1 pg 25.7-32.2 mmbt=382) MEAN CORPUSCULAR HEMOGLOBIN CONC (BEAKER) (test 31.8 GM/DL 32.3-36.5 spji=171) RED CELL DISTRIBUTION WIDTH (BEAKER) (test 14.2 % 11.6-14.4 gadv=841) PLATELET COUNT (BEAKER) (test osad=281) 170 K/CU MM 150-450 MEAN PLATELET VOLUME (BEAKER) (test visi=256) 9.9 fL 9.4-12.4 NUCLEATED RED BLOOD CELLS (BEAKER) (test 0 /100 WBC 0-0 lwbf=378) NEUTROPHILS RELATIVE PERCENT (BEAKER) (test 55 % npvn=763) LYMPHOCYTES RELATIVE PERCENT (BEAKER) (test 30 % lknl=586) MONOCYTES RELATIVE PERCENT (BEAKER) (test 10 % hhne=702) EOSINOPHILS RELATIVE PERCENT (BEAKER) (test 4 % hpok=679) BASOPHILS RELATIVE PERCENT (BEAKER) (test 1 % blxn=109) NEUTROPHILS ABSOLUTE COUNT (BEAKER) (test 2.36 K/ L 1.78-5.38 yqaf=552) LYMPHOCYTES ABSOLUTE COUNT (BEAKER) (test 1.30 K/ L 1.32-3.57 lwse=059) MONOCYTES ABSOLUTE COUNT (BEAKER) (test 0.41 K/ L 0.30-0.82 mlpj=202) EOSINOPHILS ABSOLUTE COUNT (BEAKER) (test 0.18 K/ L 0.04-0.54 fwrs=051) BASOPHILS ABSOLUTE COUNT (BEAKER) (test 0.03 K/ L 0.01-0.08 nyle=443) IMMATURE GRANULOCYTES-RELATIVE PERCENT (BEAKER) 1 % 0-1 (test qpvb=4346) RAPID DRUG SCREEN, [id number] 23:57:00 Test Item Value Reference Range Comments BARBITURATE URINE (BEAKER) (test btip=206) Negative Negative BENZODIAZEPINE SCREEN URINE (BEAKER) (test Positive Negative zced=596) COCAINE (METAB.) SCREEN (BEAKER) (test styv=2294) Negative Negative METHADONE SCREEN (BEAKER) (test umuc=9329) Negative Negative OPIATE SCREEN URINE (BEAKER) (test kafo=067) Negative Negative CANNABINOID SCREEN URINE (BEAKER) (test uatc=281) Positive Negative AMPH/METHAMPH SCREEN (BEAKER) (test ouyi=2798) Positive Negative PHENCYCLIDINE SCREEN URINE (BEAKER) (test vxcy=846) Negative Negative DRUG CUTOFF CONC.Cocaine 300 ng/mL Cannabinoid 50 ng/mLBenzodiazepine 200 ng/mLBarbiturate 200 ng/ mLPhencyclidine 25 ng/mLOpiate 300 ng/mLMethadone 300 ng/mLAmphetamine/ 1000 ng/mL MethamphetamineThis assay provides an unconfirmed qualitative test result for the clinical management of patients in emergency situations. Chain of custody not maintained. Some oppa-toz-jgwjzxm medications, as well as adulterants, may cause inaccurate results. Clinical correlation should be applied. A more comprehensivedrug screen or confirmation of a detected drug may be performed upon request.BASIC METABOLIC [id number] 23:23:00 Test Item Value Reference Range Comments SODIUM (BEAKER) (test 139 meq/L 136-145 fydz=595) POTASSIUM (BEAKER) (test 3.1 meq/L 3.5-5.1 otsa=261) CHLORIDE (BEAKER) (test 103 meq/L 98-107 ehfa=382) CO2 (BEAKER) (test 28 meq/L 22-29 hbrz=942) BLOOD UREA NITROGEN 8 mg/dL 7-21 (BEAKER) (test keam=925) CREATININE (BEAKER) (test 0.60 mg/dL 0.57-1.25 vfgc=483) GLUCOSE RANDOM (BEAKER) 92 mg/dL 70-105 (test gfcp=747) CALCIUM (BEAKER) (test 8.6 mg/dL 8.4-10.2 wioo=392) EGFR (BEAKER) (test 156 mL/min/1.73 sq m ESTIMATED GFR IS NOT grfw=7580) ACCURATE CREATININE CLEARANCE IN PREDICTING GLOMERULAR FILTRATION RATE. ESTIMATED GFR IS NOT APPLICABLE FOR DIALYSIS PATIENTS. HEPATIC FUNCTION [id number] 23:23:00 Test Item Value Reference Range Comments TOTAL PROTEIN (BEAKER) (test hmwb=167) 7.1 gm/dL 6.0-8.3 ALBUMIN (BEAKER) (test emdq=8254) 3.2 g/dL 3.5-5.0 BILIRUBIN TOTAL (BEAKER) (test uxhq=726) 0.5 mg/dL 0.2-1.2 BILIRUBIN DIRECT (BEAKER) (test iofz=434) 0.4 mg/dL 0.1-0.5 ALKALINE PHOSPHATASE (BEAKER) (test qkqk=777) 187 U/L 40-150 AST (SGOT) (BEAKER) (test slze=318) 62 U/L 5-34 ALT (SGPT) (BEAKER) (test lhii=381) 24 U/L 6-55 [id number] 22:57:00 Test Item Value Reference Range Comments LIPASE (BEAKER) (test fygn=292) 957 U/L 8-78 [id number] 22:57:00 Test Item Value Reference Range Comments AMYLASE (BEAKER) (test wsjy=079) 391 U/L 25-125 [id number] 22:56:00 Test Item Value Reference Range Comments PROTIME (BEAKER) (test cffn=905) 15.8 seconds 11.9-14.2 INR (BEAKER) (test rvvy=174) 1.3 <=5.9 PARTIAL THROMBOPLASTIN TIME (BEAKER) (test 30.9 seconds 22.5-36.0 egho=788) Effective 12/11/2018: PT Reference Range ChangeNew: 11.9-14.2 Previous: 11.7- 14.7RECOMMENDED COUMADIN/WARFARIN INR THERAPY RANGESSTANDARD DOSE: 2.0-3.0 Includes: PROPHYLAXIS for venous thrombosis, systemic embolization; TREATMENT for venous thrombosis and/or pulmonary embolus.HIGH RISK: Target INR is2.5-3.5 for patients wiht mechanical heart valves.CBC W/PLT COUNT & AUTO [id number] 22:41:00 Test Item Value Reference Range Comments WHITE BLOOD CELL COUNT (BEAKER) (test mpoa=272) 6.4 K/ L 3.5-10.5 RED BLOOD CELL COUNT (BEAKER) (test lnri=748) 3.99 M/ L 4.63-6.08 HEMOGLOBIN (BEAKER) (test xgwa=347) 12.6 GM/DL 13.7-17.5 HEMATOCRIT (BEAKER) (test vxee=098) 39.0 % 40.1-51.0 MEAN CORPUSCULAR VOLUME (BEAKER) (test jguj=101) 97.7 fL 79.0-92.2 MEAN CORPUSCULAR HEMOGLOBIN (BEAKER) (test 31.6 pg 25.7-32.2 cytr=533) MEAN CORPUSCULAR HEMOGLOBIN CONC (BEAKER) (test 32.3 GM/DL 32.3-36.5 quwv=861) RED CELL DISTRIBUTION WIDTH (BEAKER) (test 14.1 % 11.6-14.4 dmue=941) PLATELET COUNT (BEAKER) (test piwy=335) 187 K/CU MM 150-450 MEAN PLATELET VOLUME (BEAKER) (test mozs=220) 9.3 fL 9.4-12.4 NUCLEATED RED BLOOD CELLS (BEAKER) (test 0 /100 WBC 0-0 anmp=011) NEUTROPHILS RELATIVE PERCENT (BEAKER) (test 68 % gdkv=307) LYMPHOCYTES RELATIVE PERCENT (BEAKER) (test 19 % ubfu=304) MONOCYTES RELATIVE PERCENT (BEAKER) (test 10 % dicf=981) EOSINOPHILS RELATIVE PERCENT (BEAKER) (test 2 % bvdx=011) BASOPHILS RELATIVE PERCENT (BEAKER) (test 1 % jagj=723) NEUTROPHILS ABSOLUTE COUNT (BEAKER) (test 4.31 K/ L 1.78-5.38 lcal=788) LYMPHOCYTES ABSOLUTE COUNT (BEAKER) (test 1.21 K/ L 1.32-3.57 vzuz=944) MONOCYTES ABSOLUTE COUNT (BEAKER) (test 0.65 K/ L 0.30-0.82 ebet=950) EOSINOPHILS ABSOLUTE COUNT (BEAKER) (test 0.14 K/ L 0.04-0.54 xfty=973) BASOPHILS ABSOLUTE COUNT (BEAKER) (test 0.04 K/ L 0.01-0.08 liug=688) IMMATURE GRANULOCYTES-RELATIVE PERCENT (BEAKER) 0 % 0-1 (test gltk=3099) COMPREHENSIVE METABOLIC [id number] 06:44:00 Test Item Value Reference Range Comments TOTAL PROTEIN (BEAKER) 6.2 gm/dL 6.0-8.3 (test lspo=705) ALBUMIN (BEAKER) (test 2.7 g/dL 3.5-5.0 grhr=6119) ALKALINE PHOSPHATASE 195 U/L 40-150 (BEAKER) (test smfd=665) BILIRUBIN TOTAL (BEAKER) 0.7 mg/dL 0.2-1.2 (test thoi=677) SODIUM (BEAKER) (test 138 meq/L 136-145 enyk=290) POTASSIUM (BEAKER) (test 3.6 meq/L 3.5-5.1 attg=739) CHLORIDE (BEAKER) (test 102 meq/L 98-107 zmwu=306) CO2 (BEAKER) (test 28 meq/L 22-29 dsaa=275) BLOOD UREA NITROGEN 2 mg/dL 7-21 (BEAKER) (test kmpo=463) CREATININE (BEAKER) (test 0.52 mg/dL 0.57-1.25 tjmz=753) GLUCOSE RANDOM (BEAKER) 103 mg/dL 70-105 (test qiyk=399) CALCIUM (BEAKER) (test 8.5 mg/dL 8.4-10.2 zizc=837) AST (SGOT) (BEAKER) (test 67 U/L 5-34 hoko=744) ALT (SGPT) (BEAKER) (test 31 U/L 6-55 tuud=192) EGFR (BEAKER) (test 184 mL/min/1.73 sq ESTIMATED GFR IS NOT wqgo=6243) m ACCURATE CREATININE CLEARANCE IN PREDICTING GLOMERULAR FILTRATION RATE. ESTIMATED GFR IS NOT APPLICABLE FOR DIALYSIS PATIENTS. CBC W/PLT COUNT & AUTO [id number] 06:09:00 Test Item Value Reference Range Comments WHITE BLOOD CELL COUNT (BEAKER) (test yvuf=724) 4.0 K/ L 3.5-10.5 RED BLOOD CELL COUNT (BEAKER) (test rwoq=502) 3.23 M/ L 4.63-6.08 HEMOGLOBIN (BEAKER) (test aqxz=632) 10.6 GM/DL 13.7-17.5 HEMATOCRIT (BEAKER) (test luiu=189) 33.2 % 40.1-51.0 MEAN CORPUSCULAR VOLUME (BEAKER) (test zgwt=869) 102.8 fL 79.0-92.2 MEAN CORPUSCULAR HEMOGLOBIN (BEAKER) (test 32.8 pg 25.7-32.2 ewgd=681) MEAN CORPUSCULAR HEMOGLOBIN CONC (BEAKER) (test 31.9 GM/DL 32.3-36.5 czhc=538) RED CELL DISTRIBUTION WIDTH (BEAKER) (test 15.5 % 11.6-14.4 zawk=152) PLATELET COUNT (BEAKER) (test dbfa=398) 226 K/CU MM 150-450 MEAN PLATELET VOLUME (BEAKER) (test wwdt=959) 10.4 fL 9.4-12.4 NUCLEATED RED BLOOD CELLS (BEAKER) (test 0 /100 WBC 0-0 dogg=673) NEUTROPHILS RELATIVE PERCENT (BEAKER) (test 54 % jxam=285) LYMPHOCYTES RELATIVE PERCENT (BEAKER) (test 29 % xvbn=762) MONOCYTES RELATIVE PERCENT (BEAKER) (test 9 % gnsq=860) EOSINOPHILS RELATIVE PERCENT (BEAKER) (test 6 % esvm=163) BASOPHILS RELATIVE PERCENT (BEAKER) (test 1 % ceio=144) NEUTROPHILS ABSOLUTE COUNT (BEAKER) (test 2.17 K/ L 1.78-5.38 oulf=743) LYMPHOCYTES ABSOLUTE COUNT (BEAKER) (test 1.18 K/ L 1.32-3.57 lafp=945) MONOCYTES ABSOLUTE COUNT (BEAKER) (test 0.37 K/ L 0.30-0.82 btwr=684) EOSINOPHILS ABSOLUTE COUNT (BEAKER) (test 0.25 K/ L 0.04-0.54 ltpz=886) BASOPHILS ABSOLUTE COUNT (BEAKER) (test 0.04 K/ L 0.01-0.08 xibo=497) IMMATURE GRANULOCYTES-RELATIVE PERCENT (BEAKER) 0 % 0-1 (test jzgf=4114) COMPREHENSIVE METABOLIC [id number] 07:17:00 Test Item Value Reference Range Comments TOTAL PROTEIN (BEAKER) 7.3 gm/dL 6.0-8.3 (test dgpv=409) ALBUMIN (BEAKER) (test 3.2 g/dL 3.5-5.0 xita=3527) ALKALINE PHOSPHATASE 235 U/L 40-150 (BEAKER) (test xopi=585) BILIRUBIN TOTAL (BEAKER) 0.9 mg/dL 0.2-1.2 (test xfvm=981) SODIUM (BEAKER) (test 135 meq/L 136-145 loxu=731) POTASSIUM (BEAKER) (test 3.6 meq/L 3.5-5.1 yguw=453) CHLORIDE (BEAKER) (test 101 meq/L 98-107 poan=991) CO2 (BEAKER) (test 29 meq/L 22-29 sdjr=001) BLOOD UREA NITROGEN < mg/dL 7-21 (BEAKER) (test xwsr=375) CREATININE (BEAKER) (test 0.56 mg/dL 0.57-1.25 sdok=157) GLUCOSE RANDOM (BEAKER) 87 mg/dL 70-105 (test ayke=352) CALCIUM (BEAKER) (test 8.6 mg/dL 8.4-10.2 hxns=678) AST (SGOT) (BEAKER) (test 96 U/L 5-34 xuoc=257) ALT (SGPT) (BEAKER) (test 40 U/L 6-55 dlkc=866) EGFR (BEAKER) (test 169 mL/min/1.73 sq ESTIMATED GFR IS NOT kmuu=9265) m ACCURATE CREATININE CLEARANCE IN PREDICTING GLOMERULAR FILTRATION RATE. ESTIMATED GFR IS NOT APPLICABLE FOR DIALYSIS PATIENTS. CBC W/PLT COUNT & AUTO [id number] 06:05:00 Test Item Value Reference Range Comments WHITE BLOOD CELL COUNT (BEAKER) (test dlsu=993) 5.1 K/ L 3.5-10.5 RED BLOOD CELL COUNT (BEAKER) (test pojs=658) 3.60 M/ L 4.63-6.08 HEMOGLOBIN (BEAKER) (test aygu=034) 11.7 GM/DL 13.7-17.5 HEMATOCRIT (BEAKER) (test jfhk=198) 37.6 % 40.1-51.0 MEAN CORPUSCULAR VOLUME (BEAKER) (test asau=688) 104.4 fL 79.0-92.2 MEAN CORPUSCULAR HEMOGLOBIN (BEAKER) (test 32.5 pg 25.7-32.2 orgg=494) MEAN CORPUSCULAR HEMOGLOBIN CONC (BEAKER) (test 31.1 GM/DL 32.3-36.5 lgjk=823) RED CELL DISTRIBUTION WIDTH (BEAKER) (test 15.5 % 11.6-14.4 fouy=100) PLATELET COUNT (BEAKER) (test vkov=383) 250 K/CU MM 150-450 MEAN PLATELET VOLUME (BEAKER) (test bbor=311) 10.1 fL 9.4-12.4 NUCLEATED RED BLOOD CELLS (BEAKER) (test 0 /100 WBC 0-0 jxan=863) NEUTROPHILS RELATIVE PERCENT (BEAKER) (test 61 % qpen=842) LYMPHOCYTES RELATIVE PERCENT (BEAKER) (test 25 % ugvx=894) MONOCYTES RELATIVE PERCENT (BEAKER) (test 8 % cwav=975) EOSINOPHILS RELATIVE PERCENT (BEAKER) (test 5 % wjfo=546) BASOPHILS RELATIVE PERCENT (BEAKER) (test 1 % mfjd=621) NEUTROPHILS ABSOLUTE COUNT (BEAKER) (test 3.09 K/ L 1.78-5.38 ypgn=057) LYMPHOCYTES ABSOLUTE COUNT (BEAKER) (test 1.28 K/ L 1.32-3.57 gfmy=800) MONOCYTES ABSOLUTE COUNT (BEAKER) (test 0.39 K/ L 0.30-0.82 keai=513) EOSINOPHILS ABSOLUTE COUNT (BEAKER) (test 0.25 K/ L 0.04-0.54 rqyp=292) BASOPHILS ABSOLUTE COUNT (BEAKER) (test 0.05 K/ L 0.01-0.08 wvag=841) IMMATURE GRANULOCYTES-RELATIVE PERCENT (BEAKER) 0 % 0-1 (test sjod=2060) [id number] 07:51:00 Test Item Value Reference Range Comments MAGNESIUM (BEAKER) (test yapk=701) 1.7 mg/dL 1.6-2.6 COMPREHENSIVE METABOLIC [id number] 06:19:00 Test Item Value Reference Range Comments TOTAL PROTEIN (BEAKER) 6.1 gm/dL 6.0-8.3 (test haei=094) ALBUMIN (BEAKER) (test 2.7 g/dL 3.5-5.0 vkwz=3904) ALKALINE PHOSPHATASE 214 U/L 40-150 (BEAKER) (test pzcw=090) BILIRUBIN TOTAL (BEAKER) 0.9 mg/dL 0.2-1.2 (test yitw=106) SODIUM (BEAKER) (test 139 meq/L 136-145 hnyr=744) POTASSIUM (BEAKER) (test 4.2 meq/L 3.5-5.1 tmcb=525) CHLORIDE (BEAKER) (test 110 meq/L 98-107 jdcx=340) CO2 (BEAKER) (test 24 meq/L 22-29 mjia=862) BLOOD UREA NITROGEN < mg/dL 7-21 (BEAKER) (test vshr=371) CREATININE (BEAKER) (test 0.50 mg/dL 0.57-1.25 eezr=904) GLUCOSE RANDOM (BEAKER) 77 mg/dL 70-105 (test exnj=166) CALCIUM (BEAKER) (test 7.7 mg/dL 8.4-10.2 zddj=743) AST (SGOT) (BEAKER) (test 96 U/L 5-34 yxbv=606) ALT (SGPT) (BEAKER) (test 37 U/L 6-55 pnru=667) EGFR (BEAKER) (test 193 mL/min/1.73 sq ESTIMATED GFR IS NOT aycn=5438) m ACCURATE CREATININE CLEARANCE IN PREDICTING GLOMERULAR FILTRATION RATE. ESTIMATED GFR IS NOT APPLICABLE FOR DIALYSIS PATIENTS. CBC W/PLT COUNT & AUTO [id number] 05:15:00 Test Item Value Reference Range Comments WHITE BLOOD CELL COUNT (BEAKER) (test avem=422) 4.8 K/ L 3.5-10.5 RED BLOOD CELL COUNT (BEAKER) (test zkwg=951) 3.25 M/ L 4.63-6.08 HEMOGLOBIN (BEAKER) (test cukq=232) 10.7 GM/DL 13.7-17.5 HEMATOCRIT (BEAKER) (test yumb=497) 34.0 % 40.1-51.0 MEAN CORPUSCULAR VOLUME (BEAKER) (test nzsp=232) 104.6 fL 79.0-92.2 MEAN CORPUSCULAR HEMOGLOBIN (BEAKER) (test 32.9 pg 25.7-32.2 jmwd=353) MEAN CORPUSCULAR HEMOGLOBIN CONC (BEAKER) (test 31.5 GM/DL 32.3-36.5 rfbn=206) RED CELL DISTRIBUTION WIDTH (BEAKER) (test 15.5 % 11.6-14.4 vdqd=311) PLATELET COUNT (BEAKER) (test uwwy=414) 219 K/CU MM 150-450 MEAN PLATELET VOLUME (BEAKER) (test biem=335) 10.2 fL 9.4-12.4 NUCLEATED RED BLOOD CELLS (BEAKER) (test 0 /100 WBC 0-0 jhpx=473) NEUTROPHILS RELATIVE PERCENT (BEAKER) (test 56 % gndm=690) LYMPHOCYTES RELATIVE PERCENT (BEAKER) (test 29 % htxy=606) MONOCYTES RELATIVE PERCENT (BEAKER) (test 8 % rdae=776) EOSINOPHILS RELATIVE PERCENT (BEAKER) (test 5 % hckk=214) BASOPHILS RELATIVE PERCENT (BEAKER) (test 1 % dqhn=421) NEUTROPHILS ABSOLUTE COUNT (BEAKER) (test 2.69 K/ L 1.78-5.38 uehk=377) LYMPHOCYTES ABSOLUTE COUNT (BEAKER) (test 1.40 K/ L 1.32-3.57 nhwu=115) MONOCYTES ABSOLUTE COUNT (BEAKER) (test 0.37 K/ L 0.30-0.82 qhdi=844) EOSINOPHILS ABSOLUTE COUNT (BEAKER) (test 0.25 K/ L 0.04-0.54 mdzk=587) BASOPHILS ABSOLUTE COUNT (BEAKER) (test 0.05 K/ L 0.01-0.08 lhto=499) IMMATURE GRANULOCYTES-RELATIVE PERCENT (BEAKER) 0 % 0-1 (test gsxk=4476) COMPREHENSIVE METABOLIC [id number] 09:35:00 Test Item Value Reference Range Comments TOTAL PROTEIN (BEAKER) 6.4 gm/dL 6.0-8.3 Specimen slightly (test getc=656) hemolyzed ALBUMIN (BEAKER) (test 2.8 g/dL 3.5-5.0 Specimen slightly rivg=2231) hemolyzed ALKALINE PHOSPHATASE 214 U/L 40-150 (BEAKER) (test rciz=814) BILIRUBIN TOTAL (BEAKER) 1.0 mg/dL 0.2-1.2 Specimen slightly (test sckl=145) hemolyzed SODIUM (BEAKER) (test 136 meq/L 136-145 fawj=501) POTASSIUM (BEAKER) (test 4.2 meq/L 3.5-5.1 Specimen slightly nbed=387) hemolyzed CHLORIDE (BEAKER) (test 107 meq/L 98-107 vzel=322) CO2 (BEAKER) (test 23 meq/L 22-29 lcot=593) BLOOD UREA NITROGEN 2 mg/dL 7-21 (BEAKER) (test xexi=477) CREATININE (BEAKER) (test 0.54 mg/dL 0.57-1.25 Specimen slightly bpeu=631) hemolyzed GLUCOSE RANDOM (BEAKER) 89 mg/dL 70-105 (test jozc=865) CALCIUM (BEAKER) (test 7.6 mg/dL 8.4-10.2 fdie=399) AST (SGOT) (BEAKER) (test 101 U/L 5-34 Specimen slightly vczr=709) hemolyzed ALT (SGPT) (BEAKER) (test 41 U/L 6-55 Specimen slightly grlm=794) hemolyzed EGFR (BEAKER) (test 176 mL/min/1.73 sq ESTIMATED GFR IS NOT wusa=5815) m ACCURATE CREATININE CLEARANCE IN PREDICTING GLOMERULAR FILTRATION RATE. ESTIMATED GFR IS NOT APPLICABLE FOR DIALYSIS PATIENTS. [id number] 09:27:00 Test Item Value Reference Range Comments MAGNESIUM (BEAKER) (test 1.3 mg/dL 1.6-2.6 Specimen slightly hemolyzed vnbd=235) CBC W/PLT COUNT & AUTO [id number] 09:04:00 Test Item Value Reference Range Comments WHITE BLOOD CELL COUNT (BEAKER) (test kwow=245) 5.7 K/ L 3.5-10.5 RED BLOOD CELL COUNT (BEAKER) (test egav=717) 3.18 M/ L 4.63-6.08 HEMOGLOBIN (BEAKER) (test vvkx=986) 10.4 GM/DL 13.7-17.5 HEMATOCRIT (BEAKER) (test atob=217) 33.1 % 40.1-51.0 MEAN CORPUSCULAR VOLUME (BEAKER) (test pvsr=975) 104.1 fL 79.0-92.2 MEAN CORPUSCULAR HEMOGLOBIN (BEAKER) (test 32.7 pg 25.7-32.2 xpzr=685) MEAN CORPUSCULAR HEMOGLOBIN CONC (BEAKER) (test 31.4 GM/DL 32.3-36.5 jtoq=859) RED CELL DISTRIBUTION WIDTH (BEAKER) (test 15.9 % 11.6-14.4 sjtj=449) PLATELET COUNT (BEAKER) (test liut=655) 223 K/CU MM 150-450 MEAN PLATELET VOLUME (BEAKER) (test djos=343) 10.4 fL 9.4-12.4 NUCLEATED RED BLOOD CELLS (BEAKER) (test 0 /100 WBC 0-0 ezez=714) NEUTROPHILS RELATIVE PERCENT (BEAKER) (test 58 % flgg=409) LYMPHOCYTES RELATIVE PERCENT (BEAKER) (test 25 % nvsl=957) MONOCYTES RELATIVE PERCENT (BEAKER) (test 11 % usgp=618) EOSINOPHILS RELATIVE PERCENT (BEAKER) (test 5 % kqzj=554) BASOPHILS RELATIVE PERCENT (BEAKER) (test 1 % hmag=146) NEUTROPHILS ABSOLUTE COUNT (BEAKER) (test 3.27 K/ L 1.78-5.38 anjo=079) LYMPHOCYTES ABSOLUTE COUNT (BEAKER) (test 1.40 K/ L 1.32-3.57 niqo=720) MONOCYTES ABSOLUTE COUNT (BEAKER) (test 0.61 K/ L 0.30-0.82 vkes=356) EOSINOPHILS ABSOLUTE COUNT (BEAKER) (test 0.30 K/ L 0.04-0.54 xrtd=619) BASOPHILS ABSOLUTE COUNT (BEAKER) (test 0.07 K/ L 0.01-0.08 thwr=248) IMMATURE GRANULOCYTES-RELATIVE PERCENT (BEAKER) 0 % 0-1 (test qjro=8469) COMPREHENSIVE METABOLIC [id number] 05:26:00 Test Item Value Reference Range Comments TOTAL PROTEIN (BEAKER) 5.7 gm/dL 6.0-8.3 (test vtqz=559) ALBUMIN (BEAKER) (test 2.6 g/dL 3.5-5.0 uqxd=3106) ALKALINE PHOSPHATASE 204 U/L 40-150 (BEAKER) (test cacy=074) BILIRUBIN TOTAL (BEAKER) 1.0 mg/dL 0.2-1.2 (test taut=570) SODIUM (BEAKER) (test 138 meq/L 136-145 ysxe=152) POTASSIUM (BEAKER) (test 3.3 meq/L 3.5-5.1 aage=946) CHLORIDE (BEAKER) (test 106 meq/L 98-107 xpkc=659) CO2 (BEAKER) (test 24 meq/L 22-29 spjq=465) BLOOD UREA NITROGEN 5 mg/dL 7-21 (BEAKER) (test zxnh=470) CREATININE (BEAKER) (test 0.53 mg/dL 0.57-1.25 noux=499) GLUCOSE RANDOM (BEAKER) 85 mg/dL 70-105 (test mvay=584) CALCIUM (BEAKER) (test 7.3 mg/dL 8.4-10.2 glxe=429) AST (SGOT) (BEAKER) (test 108 U/L 5-34 oxii=334) ALT (SGPT) (BEAKER) (test 46 U/L 6-55 nsdu=381) EGFR (BEAKER) (test 180 mL/min/1.73 sq ESTIMATED GFR IS NOT mdte=0583) m ACCURATE CREATININE CLEARANCE IN PREDICTING GLOMERULAR FILTRATION RATE. ESTIMATED GFR IS NOT APPLICABLE FOR DIALYSIS PATIENTS. PROTHROMBIN [id number] 05:08:00 Test Item Value Reference Range Comments PROTIME (BEAKER) (test lcmp=049) 17.0 seconds 11.9-14.2 INR (BEAKER) (test bmfy=333) 1.5 <=5.9 Effective 12/11/2018: PT Reference Range ChangeNew: 11.9-14.2 Previous: 11.7- 14.7RECOMMENDED COUMADIN/WARFARIN INR THERAPY RANGESSTANDARD DOSE: 2.0-3.0 Includes: PROPHYLAXIS for venous thrombosis, systemic embolization; TREATMENT for venous thrombosis and/or pulmonary embolus.HIGH RISK: Target INR is2.5-3.5 for patients wiht mechanical heart valves.CBC W/PLT COUNT & AUTO [id number] 04:59:00 Test Item Value Reference Range Comments WHITE BLOOD CELL COUNT (BEAKER) (test zqpy=400) 6.1 K/ L 3.5-10.5 RED BLOOD CELL COUNT (BEAKER) (test jbiv=609) 2.96 M/ L 4.63-6.08 HEMOGLOBIN (BEAKER) (test wefd=618) 9.7 GM/DL 13.7-17.5 HEMATOCRIT (BEAKER) (test qwqq=515) 30.5 % 40.1-51.0 MEAN CORPUSCULAR VOLUME (BEAKER) (test lncs=518) 103.0 fL 79.0-92.2 MEAN CORPUSCULAR HEMOGLOBIN (BEAKER) (test 32.8 pg 25.7-32.2 kgjj=814) MEAN CORPUSCULAR HEMOGLOBIN CONC (BEAKER) (test 31.8 GM/DL 32.3-36.5 fydp=353) RED CELL DISTRIBUTION WIDTH (BEAKER) (test 16.0 % 11.6-14.4 qwrn=859) PLATELET COUNT (BEAKER) (test kvcb=978) 221 K/CU MM 150-450 MEAN PLATELET VOLUME (BEAKER) (test uvdy=524) 10.7 fL 9.4-12.4 NUCLEATED RED BLOOD CELLS (BEAKER) (test 0 /100 WBC 0-0 ryry=747) NEUTROPHILS RELATIVE PERCENT (BEAKER) (test 62 % dgcz=952) LYMPHOCYTES RELATIVE PERCENT (BEAKER) (test 22 % ymeu=083) MONOCYTES RELATIVE PERCENT (BEAKER) (test 11 % lzkk=152) EOSINOPHILS RELATIVE PERCENT (BEAKER) (test 3 % lcsa=826) BASOPHILS RELATIVE PERCENT (BEAKER) (test 1 % ucqo=689) NEUTROPHILS ABSOLUTE COUNT (BEAKER) (test 3.81 K/ L 1.78-5.38 dlfj=892) LYMPHOCYTES ABSOLUTE COUNT (BEAKER) (test 1.32 K/ L 1.32-3.57 ugyz=290) MONOCYTES ABSOLUTE COUNT (BEAKER) (test 0.70 K/ L 0.30-0.82 kjwt=696) EOSINOPHILS ABSOLUTE COUNT (BEAKER) (test 0.21 K/ L 0.04-0.54 rvrb=163) BASOPHILS ABSOLUTE COUNT (BEAKER) (test 0.07 K/ L 0.01-0.08 zpon=103) IMMATURE GRANULOCYTES-RELATIVE PERCENT (BEAKER) 0 % 0-1 (test aodl=4047) POCT-GLUCOSE [id number] 07:44:00 Test Item Value Reference Range Comments POC-GLUCOSE METER (BEAKER) 90 mg/dL 70-110 TESTED AT [facility] [address] [facility] (test gulx=8308) [facility] [address] COMPREHENSIVE METABOLIC [id number] 07:29:00 Test Item Value Reference Range Comments TOTAL PROTEIN (BEAKER) 5.7 gm/dL 6.0-8.3 (test ludz=280) ALBUMIN (BEAKER) (test 2.5 g/dL 3.5-5.0 evxc=4456) ALKALINE PHOSPHATASE 411 U/L 40-150 (BEAKER) (test swfr=843) BILIRUBIN TOTAL (BEAKER) 1.7 mg/dL 0.2-1.2 (test jeab=591) SODIUM (BEAKER) (test 139 meq/L 136-145 iyeo=901) POTASSIUM (BEAKER) (test 3.1 meq/L 3.5-5.1 jxzr=085) CHLORIDE (BEAKER) (test 105 meq/L 98-107 qmgm=632) CO2 (BEAKER) (test 24 meq/L 22-29 akbe=133) BLOOD UREA NITROGEN 3 mg/dL 7-21 (BEAKER) (test drrk=763) CREATININE (BEAKER) (test 0.61 mg/dL 0.57-1.25 sfls=372) GLUCOSE RANDOM (BEAKER) 95 mg/dL 70-105 (test fzgm=383) CALCIUM (BEAKER) (test 6.8 mg/dL 8.4-10.2 okpb=722) AST (SGOT) (BEAKER) (test 173 U/L 5-34 bhjx=260) ALT (SGPT) (BEAKER) (test 53 U/L 6-55 dyvy=641) EGFR (BEAKER) (test 153 mL/min/1.73 sq ESTIMATED GFR IS NOT qddj=1458) m ACCURATE CREATININE CLEARANCE IN PREDICTING GLOMERULAR FILTRATION RATE. ESTIMATED GFR IS NOT APPLICABLE FOR DIALYSIS PATIENTS. [id number] 07:28:00 Test Item Value Reference Range Comments PHOSPHORUS (BEAKER) (test puga=279) 2.4 mg/dL 2.3-4.7 [id number] 07:28:00 Test Item Value Reference Range Comments MAGNESIUM (BEAKER) (test boot=071) 1.8 mg/dL 1.6-2.6 HEPATIC FUNCTION [id number] 07:28:00 Test Item Value Reference Range Comments TOTAL PROTEIN (BEAKER) (test vmss=767) 5.7 gm/dL 6.0-8.3 ALBUMIN (BEAKER) (test pltt=1397) 2.5 g/dL 3.5-5.0 BILIRUBIN TOTAL (BEAKER) (test iuzl=854) 1.7 mg/dL 0.2-1.2 BILIRUBIN DIRECT (BEAKER) (test danq=215) 1.3 mg/dL 0.1-0.5 ALKALINE PHOSPHATASE (BEAKER) (test toqw=819) 411 U/L 40-150 AST (SGOT) (BEAKER) (test unvg=067) 173 U/L 5-34 ALT (SGPT) (BEAKER) (test ogzb=289) 53 U/L 6-55 [id number] 07:28:00 Test Item Value Reference Range Comments LIPASE (BEAKER) (test cech=890) 231 U/L 8-78 CBC W/PLT COUNT & AUTO [id number] 07:10:00 Test Item Value Reference Range Comments WHITE BLOOD CELL COUNT (BEAKER) (test gbxr=872) 4.5 K/ L 3.5-10.5 RED BLOOD CELL COUNT (BEAKER) (test foao=070) 2.76 M/ L 4.63-6.08 HEMOGLOBIN (BEAKER) (test ytyg=264) 9.2 GM/DL 13.7-17.5 HEMATOCRIT (BEAKER) (test vicb=656) 29.2 % 40.1-51.0 MEAN CORPUSCULAR VOLUME (BEAKER) (test hvrv=230) 105.8 fL 79.0-92.2 MEAN CORPUSCULAR HEMOGLOBIN (BEAKER) (test 33.3 pg 25.7-32.2 ejiz=364) MEAN CORPUSCULAR HEMOGLOBIN CONC (BEAKER) (test 31.5 GM/DL 32.3-36.5 xmuf=102) RED CELL DISTRIBUTION WIDTH (BEAKER) (test 21.9 % 11.6-14.4 souk=373) PLATELET COUNT (BEAKER) (test jyjx=114) 150 K/CU MM 150-450 MEAN PLATELET VOLUME (BEAKER) (test galz=038) 10.5 fL 9.4-12.4 NUCLEATED RED BLOOD CELLS (BEAKER) (test 0 /100 WBC 0-0 kynt=264) NEUTROPHILS RELATIVE PERCENT (BEAKER) (test 65 % iutb=435) LYMPHOCYTES RELATIVE PERCENT (BEAKER) (test 17 % zgei=753) MONOCYTES RELATIVE PERCENT (BEAKER) (test 13 % jjhb=276) EOSINOPHILS RELATIVE PERCENT (BEAKER) (test 2 % vbgx=396) BASOPHILS RELATIVE PERCENT (BEAKER) (test 1 % mcky=670) NEUTROPHILS ABSOLUTE COUNT (BEAKER) (test 2.91 K/ L 1.78-5.38 qdzj=537) LYMPHOCYTES ABSOLUTE COUNT (BEAKER) (test 0.78 K/ L 1.32-3.57 cpyi=465) MONOCYTES ABSOLUTE COUNT (BEAKER) (test 0.59 K/ L 0.30-0.82 qjzg=672) EOSINOPHILS ABSOLUTE COUNT (BEAKER) (test 0.11 K/ L 0.04-0.54 scol=149) BASOPHILS ABSOLUTE COUNT (BEAKER) (test 0.05 K/ L 0.01-0.08 iumd=780) IMMATURE GRANULOCYTES-RELATIVE PERCENT (BEAKER) 2 % 0-1 (test vofe=3319) COMPREHENSIVE METABOLIC [id number] 04:23:00 Test Item Value Reference Range Comments TOTAL PROTEIN (BEAKER) 5.5 gm/dL 6.0-8.3 (test clbv=180) ALBUMIN (BEAKER) (test 2.5 g/dL 3.5-5.0 vmbw=1112) ALKALINE PHOSPHATASE 453 U/L 40-150 (BEAKER) (test uadt=819) BILIRUBIN TOTAL (BEAKER) 2.0 mg/dL 0.2-1.2 (test pvhe=387) SODIUM (BEAKER) (test 138 meq/L 136-145 lxze=031) POTASSIUM (BEAKER) (test 3.2 meq/L 3.5-5.1 wfyo=533) CHLORIDE (BEAKER) (test 104 meq/L 98-107 qzyv=501) CO2 (BEAKER) (test 26 meq/L 22-29 xhiw=098) BLOOD UREA NITROGEN 3 mg/dL 7-21 (BEAKER) (test vsrl=579) CREATININE (BEAKER) (test 0.51 mg/dL 0.57-1.25 lpdv=121) GLUCOSE RANDOM (BEAKER) 104 mg/dL 70-105 (test envj=001) CALCIUM (BEAKER) (test 7.0 mg/dL 8.4-10.2 jlpl=164) AST (SGOT) (BEAKER) (test 166 U/L 5-34 zhwg=796) ALT (SGPT) (BEAKER) (test 52 U/L 6-55 fxhw=607) EGFR (BEAKER) (test 188 mL/min/1.73 sq ESTIMATED GFR IS NOT xcuc=3173) m ACCURATE CREATININE CLEARANCE IN PREDICTING GLOMERULAR FILTRATION RATE. ESTIMATED GFR IS NOT APPLICABLE FOR DIALYSIS PATIENTS. [id number] 04:21:00 Test Item Value Reference Range Comments PHOSPHORUS (BEAKER) (test xhmj=374) 2.0 mg/dL 2.3-4.7 [id number] 04:21:00 Test Item Value Reference Range Comments MAGNESIUM (BEAKER) (test jyhe=121) 1.5 mg/dL 1.6-2.6 HEPATIC FUNCTION [id number] 04:21:00 Test Item Value Reference Range Comments TOTAL PROTEIN (BEAKER) (test wgbg=463) 5.5 gm/dL 6.0-8.3 ALBUMIN (BEAKER) (test nsrg=4105) 2.5 g/dL 3.5-5.0 BILIRUBIN TOTAL (BEAKER) (test luxa=123) 2.0 mg/dL 0.2-1.2 BILIRUBIN DIRECT (BEAKER) (test wuwf=246) 1.5 mg/dL 0.1-0.5 ALKALINE PHOSPHATASE (BEAKER) (test ynvf=715) 453 U/L 40-150 AST (SGOT) (BEAKER) (test styo=251) 166 U/L 5-34 ALT (SGPT) (BEAKER) (test phda=718) 52 U/L 6-55 [id number] 04:21:00 Test Item Value Reference Range Comments LIPASE (BEAKER) (test shyt=026) 283 U/L 8-78 CBC W/PLT COUNT & AUTO [id number] 04:19:00 Test Item Value Reference Range Comments WHITE BLOOD CELL COUNT (BEAKER) (test quqk=290) 4.6 K/ L 3.5-10.5 RED BLOOD CELL COUNT (BEAKER) (test vwbv=918) 2.82 M/ L 4.63-6.08 HEMOGLOBIN (BEAKER) (test qepy=010) 9.4 GM/DL 13.7-17.5 HEMATOCRIT (BEAKER) (test rgdw=442) 28.9 % 40.1-51.0 MEAN CORPUSCULAR VOLUME (BEAKER) (test yjnq=003) 102.5 fL 79.0-92.2 MEAN CORPUSCULAR HEMOGLOBIN (BEAKER) (test 33.3 pg 25.7-32.2 pyzy=077) MEAN CORPUSCULAR HEMOGLOBIN CONC (BEAKER) (test 32.5 GM/DL 32.3-36.5 yjwg=799) RED CELL DISTRIBUTION WIDTH (BEAKER) (test 21.8 % 11.6-14.4 fiyl=956) PLATELET COUNT (BEAKER) (test pksd=955) 141 K/CU MM 150-450 MEAN PLATELET VOLUME (BEAKER) (test nlhw=462) 9.5 fL 9.4-12.4 NUCLEATED RED BLOOD CELLS (BEAKER) (test 0 /100 WBC 0-0 bjiy=011) NEUTROPHILS RELATIVE PERCENT (BEAKER) (test 63 % iwht=806) LYMPHOCYTES RELATIVE PERCENT (BEAKER) (test 22 % zdeu=450) MONOCYTES RELATIVE PERCENT (BEAKER) (test 10 % asgu=335) EOSINOPHILS RELATIVE PERCENT (BEAKER) (test 3 % dodz=539) BASOPHILS RELATIVE PERCENT (BEAKER) (test 1 % nkkf=451) NEUTROPHILS ABSOLUTE COUNT (BEAKER) (test 2.86 K/ L 1.78-5.38 qbov=697) LYMPHOCYTES ABSOLUTE COUNT (BEAKER) (test 1.02 K/ L 1.32-3.57 pwmz=245) MONOCYTES ABSOLUTE COUNT (BEAKER) (test 0.44 K/ L 0.30-0.82 zcws=301) EOSINOPHILS ABSOLUTE COUNT (BEAKER) (test 0.12 K/ L 0.04-0.54 kyee=714) BASOPHILS ABSOLUTE COUNT (BEAKER) (test 0.05 K/ L 0.01-0.08 wlql=658) IMMATURE GRANULOCYTES-RELATIVE PERCENT (BEAKER) 2 % 0-1 (test jcdp=4152) HEMOGLOBIN AND [id number] 03:57:00 Test Item Value Reference Range Comments HEMOGLOBIN (BEAKER) (test kdkz=901) 9.4 GM/DL 13.7-17.5 HEMATOCRIT (BEAKER) (test gxfp=228) 28.9 % 40.1-51.0 HEMOGLOBIN AND [id number] 11:59:00 Test Item Value Reference Range Comments HEMOGLOBIN (BEAKER) (test msfk=393) 8.4 GM/DL 13.7-17.5 HEMATOCRIT (BEAKER) (test kypt=017) 24.7 % 40.1-51.0 [id number] 09:15:00 Test Item Value Reference Range Comments LIPASE (BEAKER) (test dpza=723) 214 U/L 8-78 HEPATIC FUNCTION [id number] 06:09:00 Test Item Value Reference Range Comments TOTAL PROTEIN (BEAKER) (test texh=622) 5.1 gm/dL 6.0-8.3 ALBUMIN (BEAKER) (test sfxd=0044) 2.4 g/dL 3.5-5.0 BILIRUBIN TOTAL (BEAKER) (test zbpy=083) 2.0 mg/dL 0.2-1.2 BILIRUBIN DIRECT (BEAKER) (test pjps=322) 1.4 mg/dL 0.1-0.5 ALKALINE PHOSPHATASE (BEAKER) (test wbxc=578) 418 U/L 40-150 AST (SGOT) (BEAKER) (test afcg=556) 147 U/L 5-34 ALT (SGPT) (BEAKER) (test ydoq=949) 51 U/L 6-55 CBC (HEMOGRAM ONLY)[id number] 05:04:00 Test Item Value Reference Range Comments WHITE BLOOD CELL COUNT (BEAKER) (test exze=567) 4.8 K/ L 3.5-10.5 RED BLOOD CELL COUNT (BEAKER) (test sful=025) 2.41 M/ L 4.63-6.08 HEMOGLOBIN (BEAKER) (test pldw=077) 8.1 GM/DL 13.7-17.5 HEMATOCRIT (BEAKER) (test devg=906) 24.1 % 40.1-51.0 MEAN CORPUSCULAR VOLUME (BEAKER) (test tdpw=318) 100.0 fL 79.0-92.2 MEAN CORPUSCULAR HEMOGLOBIN (BEAKER) (test 33.6 pg 25.7-32.2 ljln=956) MEAN CORPUSCULAR HEMOGLOBIN CONC (BEAKER) (test 33.6 GM/DL 32.3-36.5 kcjg=076) RED CELL DISTRIBUTION WIDTH (BEAKER) (test 22.4 % 11.6-14.4 ulkt=196) PLATELET COUNT (BEAKER) (test ybhe=404) 135 K/CU MM 150-450 MEAN PLATELET VOLUME (BEAKER) (test mdoa=920) 10.0 fL 9.4-12.4 NUCLEATED RED BLOOD CELLS (BEAKER) (test 1 /100 WBC 0-0 smhg=302) BASIC METABOLIC [id number] 02:50:00 Test Item Value Reference Range Comments SODIUM (BEAKER) (test 137 meq/L 136-145 sjov=204) POTASSIUM (BEAKER) (test 3.1 meq/L 3.5-5.1 yeyh=760) CHLORIDE (BEAKER) (test 104 meq/L 98-107 sqtx=854) CO2 (BEAKER) (test 24 meq/L 22-29 roih=408) BLOOD UREA NITROGEN 3 mg/dL 7-21 (BEAKER) (test chgk=163) CREATININE (BEAKER) (test 0.50 mg/dL 0.57-1.25 fdil=342) GLUCOSE RANDOM (BEAKER) 124 mg/dL 70-105 (test vyhj=052) CALCIUM (BEAKER) (test 6.5 mg/dL 8.4-10.2 tirq=935) EGFR (BEAKER) (test 193 mL/min/1.73 sq m ESTIMATED GFR IS NOT etoc=0291) ACCURATE CREATININE CLEARANCE IN PREDICTING GLOMERULAR FILTRATION RATE. ESTIMATED GFR IS NOT APPLICABLE FOR DIALYSIS PATIENTS. [id number] 02:14:00 Test Item Value Reference Range Comments PHOSPHORUS (BEAKER) (test ebqf=893) 2.6 mg/dL 2.3-4.7 [id number] 02:14:00 Test Item Value Reference Range Comments MAGNESIUM (BEAKER) (test iopd=673) 1.9 mg/dL 1.6-2.6 HEMOGLOBIN AND [id number] 01:13:00 Test Item Value Reference Range Comments HEMOGLOBIN (BEAKER) (test sppo=068) 8.1 GM/DL 13.7-17.5 HEMATOCRIT (BEAKER) (test gvfv=385) 23.8 % 40.1-51.0 POCT-GLUCOSE [id number] 20:56:00 Test Item Value Reference Range Comments POC-GLUCOSE METER (BEAKER) 105 mg/dL 70-110 TESTED AT [facility] [address] [facility] (test afdd=5314) [facility] [address] COMPREHENSIVE METABOLIC [id number] 14:51:00 Test Item Value Reference Range Comments TOTAL PROTEIN (BEAKER) 6.0 gm/dL 6.0-8.3 (test reyb=167) ALBUMIN (BEAKER) (test 2.8 g/dL 3.5-5.0 tzrk=6733) ALKALINE PHOSPHATASE 489 U/L 40-150 (BEAKER) (test orqv=579) BILIRUBIN TOTAL (BEAKER) 2.7 mg/dL 0.2-1.2 (test yvnp=937) SODIUM (BEAKER) (test 141 meq/L 136-145 kuxb=220) POTASSIUM (BEAKER) (test 2.6 meq/L 3.5-5.1 nhmy=717) CHLORIDE (BEAKER) (test 103 meq/L 98-107 rlsz=677) CO2 (BEAKER) (test 28 meq/L 22-29 gwtr=243) BLOOD UREA NITROGEN 5 mg/dL 7-21 (BEAKER) (test vdif=400) CREATININE (BEAKER) (test 0.54 mg/dL 0.57-1.25 wxdf=397) GLUCOSE RANDOM (BEAKER) 88 mg/dL 70-105 (test oook=576) CALCIUM (BEAKER) (test 7.1 mg/dL 8.4-10.2 luip=681) AST (SGOT) (BEAKER) (test 168 U/L 5-34 eabk=313) ALT (SGPT) (BEAKER) (test 61 U/L 6-55 yjtr=596) EGFR (BEAKER) (test 176 mL/min/1.73 sq ESTIMATED GFR IS NOT ynya=8530) m ACCURATE CREATININE CLEARANCE IN PREDICTING GLOMERULAR FILTRATION RATE. ESTIMATED GFR IS NOT APPLICABLE FOR DIALYSIS PATIENTS. Specimen slightly [id number] 14:51:00 Test Item Value Reference Range Comments PHOSPHORUS (BEAKER) (test ehks=931) 0.9 mg/dL 2.3-4.7 [id number] 14:41:00 Test Item Value Reference Range Comments MAGNESIUM (BEAKER) (test thvg=875) 1.3 mg/dL 1.6-2.6 [id number] 14:41:00 Test Item Value Reference Range Comments AMYLASE (BEAKER) (test zqeq=870) 160 U/L 25-125 Specimen slightly ictericLACTATE DEHYDROGENASE (LDH)2019-02-12 14:41:00 Test Item Value Reference Range Comments LACTATE DEHYDROGENASE (BEAKER) (test tvdk=055) 572 U/L 125-220 [id number] 14:41:00 Test Item Value Reference Range Comments LIPASE (BEAKER) (test tjbe=244) 562 U/L 8-78 Specimen slightly [id number] 14:39:00 Test Item Value Reference Range Comments ETHANOL (BEAKER) (test chkm=624) < mg/dL <=10 [id number] 14:27:00 Test Item Value Reference Range Comments D-DIMER QUANTITATIVE (BEAKER) (test hwyv=157) 4.23 MG/L FEU <0.50 Intended Use: The [...] of thrombosis is within 95-100% range.LACTIC ACID, [id number] 14:25:00 Test Item Value Reference Range Comments LACTATE BLOOD VENOUS (2) (BEAKER) (test 1.5 mmol/L 0.5-2.2 htyq=4990) [id number] 14:21:00 Test Item Value Reference Range Comments AMMONIA (BEAKER) (test emfy=177) 50 mol/L 18-72 [id number] 14:17:00 Test Item Value Reference Range Comments PROTIME (BEAKER) (test sxsi=015) 17.8 seconds 11.9-14.2 INR (BEAKER) (test kbgk=782) 1.6 <=5.9 PARTIAL THROMBOPLASTIN TIME (BEAKER) (test 34.9 seconds 22.5-36.0 gebz=836) Effective 12/11/2018: PT Reference Range ChangeNew: 11.9-14.2 Previous: 11.7- 14.7RECOMMENDED COUMADIN/WARFARIN INR THERAPY RANGESSTANDARD DOSE: 2.0-3.0 Includes: PROPHYLAXIS for venous thrombosis, systemic embolization; TREATMENT for venous thrombosis and/or pulmonary embolus.HIGH RISK: Target INR is2.5-3.5 for patients wiht mechanical heart valves.[id number] 14:17:00 Test Item Value Reference Range Comments FIBRINOGEN LEVEL (BEAKER) (test xsob=994) 304 mg/dl 225-434 CBC (HEMOGRAM ONLY)2019-02-12 14:13:00 Test Item Value Reference Range Comments WHITE BLOOD CELL COUNT 5.0 K/ L 3.5-10.5 (BEAKER) (test ulvu=788) RED BLOOD CELL COUNT (BEAKER) 2.64 M/ L 4.63-6.08 (test bnsu=449) HEMOGLOBIN (BEAKER) (test 9.0 GM/DL 13.7-17.5 ilyy=697) HEMATOCRIT (BEAKER) (test 27.0 % 40.1-51.0 czdk=198) MEAN CORPUSCULAR VOLUME 102.3 fL 79.0-92.2 (BEAKER) (test jque=182) MEAN CORPUSCULAR HEMOGLOBIN 34.1 pg 25.7-32.2 (BEAKER) (test gozo=908) MEAN CORPUSCULAR HEMOGLOBIN 33.3 GM/DL 32.3-36.5 CONC (BEAKER) (test uozu=260) RED CELL DISTRIBUTION WIDTH % 11.6-14.4 Unable to report due to (BEAKER) (test nzxu=255) abnormal Platelet population distribution. PLATELET COUNT (BEAKER) (test 146 K/CU MM 150-450 iasf=270) MEAN PLATELET VOLUME (BEAKER) 10.0 fL 9.4-12.4 (test lkws=461) NUCLEATED RED BLOOD CELLS 1 /100 WBC 0-0 (BEAKER) (test qyhd=653) CBC W/PLT COUNT & AUTO [id number] 05:36:00 Test Item Value Reference Range Comments WHITE BLOOD CELL COUNT (BEAKER) (test zlhc=246) 3.1 K/ L 3.5-10.5 RED BLOOD CELL COUNT (BEAKER) (test fmvr=741) 3.39 M/ L 4.63-6.08 HEMOGLOBIN (BEAKER) (test tpcn=853) 11.5 GM/DL 13.7-17.5 HEMATOCRIT (BEAKER) (test gpww=599) 33.7 % 40.1-51.0 MEAN CORPUSCULAR VOLUME (BEAKER) (test xhit=866) 99.4 fL 79.0-92.2 MEAN CORPUSCULAR HEMOGLOBIN (BEAKER) (test 33.9 pg 25.7-32.2 jqjd=378) MEAN CORPUSCULAR HEMOGLOBIN CONC (BEAKER) (test 34.1 GM/DL 32.3-36.5 axwb=535) RED CELL DISTRIBUTION WIDTH (BEAKER) (test 12.8 % 11.6-14.4 cztj=989) PLATELET COUNT (BEAKER) (test cimi=496) 130 K/CU MM 150-450 MEAN PLATELET VOLUME (BEAKER) (test ekcg=502) 10.4 fL 9.4-12.4 NUCLEATED RED BLOOD CELLS (BEAKER) (test 0 /100 WBC 0-0 dwgk=012) NEUTROPHILS RELATIVE PERCENT (BEAKER) (test 51 % atcz=253) LYMPHOCYTES RELATIVE PERCENT (BEAKER) (test 31 % bfut=385) MONOCYTES RELATIVE PERCENT (BEAKER) (test 12 % iuou=022) EOSINOPHILS RELATIVE PERCENT (BEAKER) (test 4 % tnwd=252) BASOPHILS RELATIVE PERCENT (BEAKER) (test 1 % jjlo=990) NEUTROPHILS ABSOLUTE COUNT (BEAKER) (test 1.61 K/ L 1.78-5.38 poob=959) LYMPHOCYTES ABSOLUTE COUNT (BEAKER) (test 0.98 K/ L 1.32-3.57 yqbv=864) MONOCYTES ABSOLUTE COUNT (BEAKER) (test 0.38 K/ L 0.30-0.82 tcjt=397) EOSINOPHILS ABSOLUTE COUNT (BEAKER) (test 0.11 K/ L 0.04-0.54 dcdn=646) BASOPHILS ABSOLUTE COUNT (BEAKER) (test 0.04 K/ L 0.01-0.08 zyap=864) IMMATURE GRANULOCYTES-RELATIVE PERCENT (BEAKER) 1 % 0-1 (test cada=5380) MR, ABDOMEN, [id number] 13:31:00FINAL REPORT MRCP, MRI of abdomen without [...] MDReport Verified Date/Time: 12/12/2018 13:31:00 Reading Location: [facility] B1 C013Y CT Body Reading Room COMPREHENSIVE METABOLIC [id number] 09:56:00 Test Item Value Reference Range Comments TOTAL PROTEIN (BEAKER) 5.5 gm/dL 6.0-8.3 (test duiu=038) ALBUMIN (BEAKER) (test 3.1 g/dL 3.5-5.0 jfzf=8678) ALKALINE PHOSPHATASE 116 U/L 40-150 (BEAKER) (test kgmh=732) BILIRUBIN TOTAL (BEAKER) 1.9 mg/dL 0.2-1.2 (test ulnp=093) SODIUM (BEAKER) (test 139 meq/L 136-145 kfud=270) POTASSIUM (BEAKER) (test 3.0 meq/L 3.5-5.1 dcwq=245) CHLORIDE (BEAKER) (test 107 meq/L 98-107 sgyp=267) CO2 (BEAKER) (test 23 meq/L 22-29 xvlv=456) BLOOD UREA NITROGEN 4 mg/dL 7-21 (BEAKER) (test bqht=359) CREATININE (BEAKER) (test 0.56 mg/dL 0.57-1.25 jdpi=187) GLUCOSE RANDOM (BEAKER) 116 mg/dL 70-105 (test wzzm=178) CALCIUM (BEAKER) (test 7.4 mg/dL 8.4-10.2 oexi=389) AST (SGOT) (BEAKER) (test 297 U/L 5-34 qpqf=058) ALT (SGPT) (BEAKER) (test 173 U/L 6-55 trfk=991) EGFR (BEAKER) (test 169 mL/min/1.73 sq ESTIMATED GFR IS NOT qkoe=2765) m ACCURATE CREATININE CLEARANCE IN PREDICTING GLOMERULAR FILTRATION RATE. ESTIMATED GFR IS NOT APPLICABLE FOR DIALYSIS PATIENTS. CBC W/PLT COUNT & AUTO [id number] 04:42:00 Test Item Value Reference Range Comments WHITE BLOOD CELL COUNT (BEAKER) (test ftat=075) 3.1 K/ L 3.5-10.5 RED BLOOD CELL COUNT (BEAKER) (test bbpp=904) 3.09 M/ L 4.63-6.08 HEMOGLOBIN (BEAKER) (test dyyl=170) 10.7 GM/DL 13.7-17.5 HEMATOCRIT (BEAKER) (test drrs=455) 30.5 % 40.1-51.0 MEAN CORPUSCULAR VOLUME (BEAKER) (test fjzt=589) 98.7 fL 79.0-92.2 MEAN CORPUSCULAR HEMOGLOBIN (BEAKER) (test 34.6 pg 25.7-32.2 artv=288) MEAN CORPUSCULAR HEMOGLOBIN CONC (BEAKER) (test 35.1 GM/DL 32.3-36.5 xovk=819) RED CELL DISTRIBUTION WIDTH (BEAKER) (test 12.4 % 11.6-14.4 sajk=255) PLATELET COUNT (BEAKER) (test shqw=812) 99 K/CU MM 150-450 MEAN PLATELET VOLUME (BEAKER) (test qrzz=901) 11.0 fL 9.4-12.4 NUCLEATED RED BLOOD CELLS (BEAKER) (test 0 /100 WBC 0-0 glwb=178) NEUTROPHILS RELATIVE PERCENT (BEAKER) (test 60 % clfb=295) LYMPHOCYTES RELATIVE PERCENT (BEAKER) (test 26 % gvws=177) MONOCYTES RELATIVE PERCENT (BEAKER) (test 11 % waic=087) EOSINOPHILS RELATIVE PERCENT (BEAKER) (test 2 % fyfl=484) BASOPHILS RELATIVE PERCENT (BEAKER) (test 1 % guib=029) NEUTROPHILS ABSOLUTE COUNT (BEAKER) (test 1.84 K/ L 1.78-5.38 njwk=282) LYMPHOCYTES ABSOLUTE COUNT (BEAKER) (test 0.81 K/ L 1.32-3.57 lbcu=527) MONOCYTES ABSOLUTE COUNT (BEAKER) (test ihoe=725) 0.34 K/ L 0.30-0.82 EOSINOPHILS ABSOLUTE COUNT (BEAKER) (test 0.06 K/ L 0.04-0.54 tyun=941) BASOPHILS ABSOLUTE COUNT (BEAKER) (test gzzf=923) 0.03 K/ L 0.01-0.08 IMMATURE GRANULOCYTES-RELATIVE PERCENT (BEAKER) 0 % 0-1 (test uvmw=7923) FL, ESOPH, SWALLOW FUNCTION, WITH CINE OR [id number] 12:02:00Reason for exam:->pneumomediastinum, rule out esophageal perforationFINAL [...] Verified Date/Time: 12/11/2018 12:02: 17 Reading Location: [address] Ortho Consult Reading Room BASI METABOLIC [id number] 07:31:00 Test Item Value Reference Range Comments SODIUM (BEAKER) (test 139 meq/L 136-145 lwxq=810) POTASSIUM (BEAKER) (test 3.4 meq/L 3.5-5.1 Specimen slightly bgrq=044) hemolyzed CHLORIDE (BEAKER) (test 103 meq/L 98-107 bpbf=328) CO2 (BEAKER) (test 20 meq/L 22-29 pchz=173) BLOOD UREA NITROGEN 18 mg/dL 7-21 (BEAKER) (test blhc=419) CREATININE (BEAKER) (test 0.73 mg/dL 0.57-1.25 Specimen slightly zjaw=580) hemolyzed GLUCOSE RANDOM (BEAKER) 67 mg/dL 70-105 (test jddm=363) CALCIUM (BEAKER) (test 8.6 mg/dL 8.4-10.2 kcua=859) EGFR (BEAKER) (test 125 mL/min/1.73 sq m ESTIMATED GFR IS NOT dsus=7731) ACCURATE CREATININE CLEARANCE IN PREDICTING GLOMERULAR FILTRATION RATE. ESTIMATED GFR IS NOT APPLICABLE FOR DIALYSIS PATIENTS. CBC W/PLT COUNT & AUTO [id number] 07:12:00 Test Item Value Reference Range Comments WHITE BLOOD CELL COUNT (BEAKER) (test tufn=039) 4.6 K/ L 3.5-10.5 RED BLOOD CELL COUNT (BEAKER) (test vhfp=170) 3.19 M/ L 4.63-6.08 HEMOGLOBIN (BEAKER) (test rkwc=648) 11.1 GM/DL 13.7-17.5 HEMATOCRIT (BEAKER) (test cbtz=499) 31.0 % 40.1-51.0 MEAN CORPUSCULAR VOLUME (BEAKER) (test zwzm=380) 97.2 fL 79.0-92.2 MEAN CORPUSCULAR HEMOGLOBIN (BEAKER) (test 34.8 pg 25.7-32.2 hmcd=974) MEAN CORPUSCULAR HEMOGLOBIN CONC (BEAKER) (test 35.8 GM/DL 32.3-36.5 wawg=818) RED CELL DISTRIBUTION WIDTH (BEAKER) (test 13.0 % 11.6-14.4 lbkc=910) PLATELET COUNT (BEAKER) (test vivm=920) 103 K/CU MM 150-450 MEAN PLATELET VOLUME (BEAKER) (test fmjc=901) 11.0 fL 9.4-12.4 NUCLEATED RED BLOOD CELLS (BEAKER) (test 0 /100 WBC 0-0 zuub=841) NEUTROPHILS RELATIVE PERCENT (BEAKER) (test 73 % mscm=840) LYMPHOCYTES RELATIVE PERCENT (BEAKER) (test 16 % oddz=697) MONOCYTES RELATIVE PERCENT (BEAKER) (test 9 % jwas=359) EOSINOPHILS RELATIVE PERCENT (BEAKER) (test 1 % kynp=029) BASOPHILS RELATIVE PERCENT (BEAKER) (test 0 % unre=276) NEUTROPHILS ABSOLUTE COUNT (BEAKER) (test 3.36 K/ L 1.78-5.38 zybt=633) LYMPHOCYTES ABSOLUTE COUNT (BEAKER) (test 0.75 K/ L 1.32-3.57 fvuc=168) MONOCYTES ABSOLUTE COUNT (BEAKER) (test 0.41 K/ L 0.30-0.82 tjxt=234) EOSINOPHILS ABSOLUTE COUNT (BEAKER) (test 0.04 K/ L 0.04-0.54 lgep=678) BASOPHILS ABSOLUTE COUNT (BEAKER) (test 0.02 K/ L 0.01-0.08 chpm=471) IMMATURE GRANULOCYTES-RELATIVE PERCENT (BEAKER) 1 % 0-1 (test fzst=5143) RAD, CHEST, 1 VIEW, NON [id number] 20:13:00Reason for exam:-> pneumomediastinumShould this be performed [...] Verified Date /Time: 12/10/2018 20:13:39 Reading Location: [address] Reading Room [id number] 19:12:00 Test Item Value Reference Range Comments MAGNESIUM (BEAKER) (test 1.8 mg/dL 1.6-2.6 Specimen slightly hemolyzed ppra=236) COMPREHENSIVE METABOLIC [id number] 19:12:00 Test Item Value Reference Range Comments TOTAL PROTEIN (BEAKER) 6.3 gm/dL 6.0-8.3 Specimen slightly (test piiz=069) hemolyzed ALBUMIN (BEAKER) (test 3.7 g/dL 3.5-5.0 Specimen slightly ugkk=7244) hemolyzed ALKALINE PHOSPHATASE 129 U/L 40-150 (BEAKER) (test yznt=294) BILIRUBIN TOTAL (BEAKER) 2.9 mg/dL 0.2-1.2 Specimen slightly (test soqf=079) hemolyzed SODIUM (BEAKER) (test 137 meq/L 136-145 ykem=325) POTASSIUM (BEAKER) (test 2.7 meq/L 3.5-5.1 Specimen slightly wqqv=146) hemolyzed CHLORIDE (BEAKER) (test 99 meq/L 98-107 yljc=396) CO2 (BEAKER) (test 23 meq/L 22-29 oqxl=467) BLOOD UREA NITROGEN 22 mg/dL 7-21 (BEAKER) (test oqxx=642) CREATININE (BEAKER) (test 1.28 mg/dL 0.57-1.25 Specimen slightly couv=689) hemolyzed GLUCOSE RANDOM (BEAKER) 78 mg/dL 70-105 (test ryuz=458) CALCIUM (BEAKER) (test 8.5 mg/dL 8.4-10.2 lsmf=536) AST (SGOT) (BEAKER) (test 502 U/L 5-34 Specimen slightly mpeh=266) hemolyzed ALT (SGPT) (BEAKER) (test 225 U/L 6-55 Specimen slightly eygo=573) hemolyzed EGFR (BEAKER) (test 65 mL/min/1.73 sq m ESTIMATED GFR IS NOT tspt=3448) ACCURATE CREATININE CLEARANCE IN PREDICTING GLOMERULAR FILTRATION RATE. ESTIMATED GFR IS NOT APPLICABLE FOR DIALYSIS PATIENTS. Specimen slightly ictericPROTHROMBIN [id number] 18:53:00 Test Item Value Reference Range Comments PROTIME (BEAKER) (test ogyw=702) 15.8 seconds 11.7-14.7 INR (BEAKER) (test qtef=717) 1.3 <=5.9 RECOMMENDED COUMADIN/WARFARIN INR THERAPY RANGESSTANDARD DOSE: 2.0 - 3.0 Includes: PROPHYLAXIS forvenous thrombosis, systemic embolization; TREATMENT for venous thrombosis and/or pulmonary embolus.HIGH RISK: Target INR is 2.5-3.5 for patients with mechanical heart valves.CBC W/PLT COUNT & AUTO [id number] 18:49:00 Test Item Value Reference Range Comments WHITE BLOOD CELL COUNT (BEAKER) (test kxmr=052) 6.0 K/ L 3.5-10.5 RED BLOOD CELL COUNT (BEAKER) (test okbs=997) 3.44 M/ L 4.63-6.08 HEMOGLOBIN (BEAKER) (test kspa=580) 11.6 GM/DL 13.7-17.5 HEMATOCRIT (BEAKER) (test zfua=975) 34.1 % 40.1-51.0 MEAN CORPUSCULAR VOLUME (BEAKER) (test iknm=386) 99.1 fL 79.0-92.2 MEAN CORPUSCULAR HEMOGLOBIN (BEAKER) (test 33.7 pg 25.7-32.2 umoh=688) MEAN CORPUSCULAR HEMOGLOBIN CONC (BEAKER) (test 34.0 GM/DL 32.3-36.5 vpyv=899) RED CELL DISTRIBUTION WIDTH (BEAKER) (test 13.1 % 11.6-14.4 zjuh=320) PLATELET COUNT (BEAKER) (test imop=643) 109 K/CU MM 150-450 MEAN PLATELET VOLUME (BEAKER) (test ixfo=973) 11.0 fL 9.4-12.4 NUCLEATED RED BLOOD CELLS (BEAKER) (test 0 /100 WBC 0-0 xyyb=634) NEUTROPHILS RELATIVE PERCENT (BEAKER) (test 81 % xxpm=815) LYMPHOCYTES RELATIVE PERCENT (BEAKER) (test 12 % jzqa=354) MONOCYTES RELATIVE PERCENT (BEAKER) (test 7 % lwii=448) EOSINOPHILS RELATIVE PERCENT (BEAKER) (test 0 % fqeh=786) BASOPHILS RELATIVE PERCENT (BEAKER) (test 0 % ewtn=535) NEUTROPHILS ABSOLUTE COUNT (BEAKER) (test 4.84 K/ L 1.78-5.38 jkmi=556) LYMPHOCYTES ABSOLUTE COUNT (BEAKER) (test 0.72 K/ L 1.32-3.57 znwx=194) MONOCYTES ABSOLUTE COUNT (BEAKER) (test 0.41 K/ L 0.30-0.82 conc=057) EOSINOPHILS ABSOLUTE COUNT (BEAKER) (test 0.01 K/ L 0.04-0.54 omhx=857) BASOPHILS ABSOLUTE COUNT (BEAKER) (test 0.02 K/ L 0.01-0.08 xxgc=296) IMMATURE GRANULOCYTES-RELATIVE PERCENT (BEAKER) 0 % 0-1 (test esvs=5414) BLOOD [id number] 20:01:00 Test Item Value Reference Range Comments CULTURE (BEAKER) (test vmeb=0506) No growth in 5 days BLOOD [id number] 20:01:00 Test Item Value Reference Range Comments CULTURE (BEAKER) (test buqe=9008) No growth in 5 days RAD, CHEST, 1 VIEW, NON [id number] 13:13:00Reason for exam:->evalute for pneumoniaShould this be performed at the bedside?->YesAddendum BeginsREPORT STATUS:A Addendum:Clinical diagnosis alcohol withdrawalsyndrome, electrolyte disturbances, elevated liver function tests, pneumonia, Signed: Marilu Sharpe MDReport Verified Date/Time: 11/01/2018 13:13: 23 Reading Location: [address] Consult Reading RoomAddendum EndsFINAL REPORT Chest [...] MDReport Verified Date/Time: 10/28 15:36:38 Reading Location: [facility] [id number] Consult Reading Room U/S, ABDOMINAL, WITH [id number] 10:43:00Reason for exam:->evaluate for portal hypertension, cirrhosis, [...] MDReport Verified Date/Time: 10/31/2018 10:43:58 Reading Location: [facility] [id number] Ultrasound Reading Room COMPREHENSIVE METABOLIC [id number] 06:57:00 Test Item Value Reference Range Comments TOTAL PROTEIN (BEAKER) 6.3 gm/dL 6.0-8.3 (test vszp=367) ALBUMIN (BEAKER) (test 3.4 g/dL 3.5-5.0 riij=3824) ALKALINE PHOSPHATASE 165 U/L 40-150 (BEAKER) (test sghl=607) BILIRUBIN TOTAL (BEAKER) 0.6 mg/dL 0.2-1.2 (test rfgo=150) SODIUM (BEAKER) (test 140 meq/L 136-145 jrob=431) POTASSIUM (BEAKER) (test 3.6 meq/L 3.5-5.1 teqe=783) CHLORIDE (BEAKER) (test 102 meq/L 98-107 scdz=155) CO2 (BEAKER) (test 29 meq/L 22-29 mvic=408) BLOOD UREA NITROGEN 3 mg/dL 7-21 (BEAKER) (test znwx=546) CREATININE (BEAKER) (test 0.55 mg/dL 0.57-1.25 ydqb=136) GLUCOSE RANDOM (BEAKER) 89 mg/dL 70-105 (test hxyo=080) CALCIUM (BEAKER) (test 9.2 mg/dL 8.4-10.2 ybti=594) AST (SGOT) (BEAKER) (test 184 U/L 5-34 acts=738) ALT (SGPT) (BEAKER) (test 156 U/L 6-55 vkyb=969) EGFR (BEAKER) (test 173 mL/min/1.73 sq ESTIMATED GFR IS NOT mxss=1713) m ACCURATE CREATININE CLEARANCE IN PREDICTING GLOMERULAR FILTRATION RATE. ESTIMATED GFR IS NOT APPLICABLE FOR DIALYSIS PATIENTS. HEMOGLOBIN [id number] 09:30:00 Test Item Value Reference Range Comments HEMOGLOBIN A1C (BEAKER) (test sakm=183) 4.9 % 4.3-6.1 COMPREHENSIVE METABOLIC [id number] 05:17:00 Test Item Value Reference Range Comments TOTAL PROTEIN (BEAKER) 6.5 gm/dL 6.0-8.3 (test oagi=774) ALBUMIN (BEAKER) (test 3.6 g/dL 3.5-5.0 bila=6123) ALKALINE PHOSPHATASE 170 U/L 40-150 (BEAKER) (test mehx=166) BILIRUBIN TOTAL (BEAKER) 0.9 mg/dL 0.2-1.2 (test xezo=535) SODIUM (BEAKER) (test 141 meq/L 136-145 htfp=241) POTASSIUM (BEAKER) (test 3.5 meq/L 3.5-5.1 wjuj=838) CHLORIDE (BEAKER) (test 104 meq/L 98-107 zpok=389) CO2 (BEAKER) (test 26 meq/L 22-29 mfll=978) BLOOD UREA NITROGEN 4 mg/dL 7-21 (BEAKER) (test nale=457) CREATININE (BEAKER) (test 0.55 mg/dL 0.57-1.25 uadm=840) GLUCOSE RANDOM (BEAKER) 89 mg/dL 70-105 (test eagi=779) CALCIUM (BEAKER) (test 9.3 mg/dL 8.4-10.2 ftgt=590) AST (SGOT) (BEAKER) (test 167 U/L 5-34 ijwb=722) ALT (SGPT) (BEAKER) (test 156 U/L 6-55 ssgv=753) EGFR (BEAKER) (test 173 mL/min/1.73 sq ESTIMATED GFR IS NOT hsar=4351) m ACCURATE CREATININE CLEARANCE IN PREDICTING GLOMERULAR FILTRATION RATE. ESTIMATED GFR IS NOT APPLICABLE FOR DIALYSIS PATIENTS. CBC W/PLT COUNT & AUTO [id number] 04:53:00 Test Item Value Reference Range Comments WHITE BLOOD CELL COUNT (BEAKER) (test gxck=430) 3.4 K/ L 3.5-10.5 RED BLOOD CELL COUNT (BEAKER) (test uxhp=337) 3.45 M/ L 4.63-6.08 HEMOGLOBIN (BEAKER) (test uvzk=861) 11.8 GM/DL 13.7-17.5 HEMATOCRIT (BEAKER) (test ploq=133) 34.4 % 40.1-51.0 MEAN CORPUSCULAR VOLUME (BEAKER) (test vrme=575) 99.7 fL 79.0-92.2 MEAN CORPUSCULAR HEMOGLOBIN (BEAKER) (test 34.2 pg 25.7-32.2 gfsh=785) MEAN CORPUSCULAR HEMOGLOBIN CONC (BEAKER) (test 34.3 GM/DL 32.3-36.5 bnue=111) RED CELL DISTRIBUTION WIDTH (BEAKER) (test 12.2 % 11.6-14.4 mryd=580) PLATELET COUNT (BEAKER) (test wfiq=472) 175 K/CU MM 150-450 MEAN PLATELET VOLUME (BEAKER) (test vqoq=469) 10.3 fL 9.4-12.4 NUCLEATED RED BLOOD CELLS (BEAKER) (test 0 /100 WBC 0-0 konw=411) NEUTROPHILS RELATIVE PERCENT (BEAKER) (test 55 % jvcl=638) LYMPHOCYTES RELATIVE PERCENT (BEAKER) (test 30 % gkgv=834) MONOCYTES RELATIVE PERCENT (BEAKER) (test 11 % iikg=951) EOSINOPHILS RELATIVE PERCENT (BEAKER) (test 3 % wmop=319) BASOPHILS RELATIVE PERCENT (BEAKER) (test 1 % lzrn=755) NEUTROPHILS ABSOLUTE COUNT (BEAKER) (test 1.89 K/ L 1.78-5.38 yiey=896) LYMPHOCYTES ABSOLUTE COUNT (BEAKER) (test 1.03 K/ L 1.32-3.57 frmc=555) MONOCYTES ABSOLUTE COUNT (BEAKER) (test 0.39 K/ L 0.30-0.82 giak=424) EOSINOPHILS ABSOLUTE COUNT (BEAKER) (test 0.09 K/ L 0.04-0.54 uvsy=858) BASOPHILS ABSOLUTE COUNT (BEAKER) (test 0.03 K/ L 0.01-0.08 tncj=665) IMMATURE GRANULOCYTES-RELATIVE PERCENT (BEAKER) 0 % 0-1 (test vani=3265) LIPID [id number] 17:30:00 Test Item Value Reference Range Comments TRIGLYCERIDES (BEAKER) (test mode=586) 90 mg/dL CHOLESTEROL (BEAKER) (test vfcf=740) 140 mg/dL HDL CHOLESTEROL (BEAKER) (test ddqo=149) 37 mg/dL LDL CHOLESTEROL CALCULATED (BEAKER) (test 85 mg/dL ejca=258) Triglyceride Reference Range: Low Risk <150 Borderline 150- 199 High Risk 200-499 Very High Risk >=500Cholesterol Reference Range: Low Risk <200 Borderline 200-239 High Risk > 240HDL Cholesterol Reference Range: Low Risk >=60 High Risk <40LDL Cholesterol Reference Range: Optimal <100 Near Optimal 100-129 Borderline 130-159 High 160-189 Very High >=190HEPATITIS C PCR, [id number] 14:57:00 Test Item Value Reference Range Comments HCV RESULT COMPONENT (BEAKER) HCV RNA not detected HCV RNA not detected (test qgst=9247) This test uses a Real-Time Polymerase Chain Reaction (RT-PCR) methodology and was performed using MAR[employer] Ampliprep/MARIANO TaqMan HCV test kit version 2.0 ( [employer]).Reportable range for this assay is 15 - 100,000, 000 IU per mL (1.18 - 8.00 Log IU/mL).RAD, ABDOMEN/KUB, 1 VIEW [id number] 14: 17:00Reason for exam:->abd distensionFINAL REPORT TECHNIQUE: Supine radiographs of the abdomen dated 10/29/2018. HISTORY: Abdominal distention. COMPARISON: None IMPRESSION:No air-filled, dilated loops of bowel to suggest obstruction. No free intraperitoneal air. No abnormal soft tissue mass or calcification. Signed:Nancy Concepcioneport Verified Date/ Time: 10/29/2018 14:17:17 Reading Location: [facility] Radiology Reading Room [id number] 13:28:00 Test Item Value Reference Range Comments RPR SCREEN (BEAKER) (test suid=395) Nonreactive Nonreactive [id number] 05:12:00 Test Item Value Reference Range Comments PHOSPHORUS (BEAKER) (test klpq=976) 2.5 mg/dL 2.3-4.7 COMPREHENSIVE METABOLIC [id number] 05:12:00 Test Item Value Reference Range Comments TOTAL PROTEIN (BEAKER) 6.9 gm/dL 6.0-8.3 (test rbkz=294) ALBUMIN (BEAKER) (test 3.9 g/dL 3.5-5.0 xclo=0535) ALKALINE PHOSPHATASE 200 U/L 40-150 (BEAKER) (test fxor=173) BILIRUBIN TOTAL (BEAKER) 1.2 mg/dL 0.2-1.2 (test fboe=798) SODIUM (BEAKER) (test 137 meq/L 136-145 bhqi=169) POTASSIUM (BEAKER) (test 3.3 meq/L 3.5-5.1 yyiz=675) CHLORIDE (BEAKER) (test 97 meq/L 98-107 szme=432) CO2 (BEAKER) (test 27 meq/L 22-29 lrcg=247) BLOOD UREA NITROGEN 3 mg/dL 7-21 (BEAKER) (test bnhn=947) CREATININE (BEAKER) (test 0.57 mg/dL 0.57-1.25 zsxj=461) GLUCOSE RANDOM (BEAKER) 108 mg/dL 70-105 (test lctr=367) CALCIUM (BEAKER) (test 9.4 mg/dL 8.4-10.2 wqct=941) AST (SGOT) (BEAKER) (test 263 U/L 5-34 ahzq=002) ALT (SGPT) (BEAKER) (test 215 U/L 6-55 mzpy=247) EGFR (BEAKER) (test 166 mL/min/1.73 sq ESTIMATED GFR IS NOT tuag=8182) m ACCURATE CREATININE CLEARANCE IN PREDICTING GLOMERULAR FILTRATION RATE. ESTIMATED GFR IS NOT APPLICABLE FOR DIALYSIS PATIENTS. PROTHROMBIN [id number] 04:53:00 Test Item Value Reference Range Comments PROTIME (BEAKER) (test cftp=496) 16.0 seconds 11.7-14.7 INR (BEAKER) (test cism=491) 1.3 <=5.9 RECOMMENDED COUMADIN/WARFARIN INR THERAPY RANGESSTANDARD DOSE: 2.0 - 3.0 Includes: PROPHYLAXIS forvenous thrombosis, systemic embolization; TREATMENT for venous thrombosis and/or pulmonary embolus.HIGH RISK: Target INR is 2.5-3.5 for patients with mechanical heart valves.URINALYSIS W/ REFLEX URINE [id number] 18:43:00 Test Item Value Reference Range Comments COLOR (BEAKER) (test wlyk=718) Yellow CLARITY (BEAKER) (test gmwh=043) Clear SPECIFIC GRAVITY UA (BEAKER) (test zitr=054) 1.007 1.001-1.035 PH UA (BEAKER) (test qogi=223) 7.5 5.0-8.0 PROTEIN UA (BEAKER) (test dgel=711) 20 mg/dL Negative GLUCOSE UA (BEAKER) (test ihmw=576) Negative Negative KETONES UA (BEAKER) (test jpjv=818) 20 mg/dL Negative BILIRUBIN UA (BEAKER) (test jrbr=240) Negative Negative BLOOD UA (BEAKER) (test ixtn=554) Trace Negative NITRITE UA (BEAKER) (test ghsx=866) Negative Negative LEUKOCYTE ESTERASE UA (BEAKER) (test wury=321) Negative Negative UROBILINOGEN UA (BEAKER) (test fhiv=343) 2.0 mg/dL 0.2-1.0 RBC UA (BEAKER) (test xgsk=588) 3 /HPF WBC UA (BEAKER) (test xzyw=267) < /HPF MUCUS (BEAKER) (test tsbr=9867) Rare SOURCE(BEAKER) (test btof=8252) VITAMIN B12 AND [id number] 15:08:00 Test Item Value Reference Range Comments VITAMIN B12 (BEAKER) (test crcf=653) 1678 pg/mL 213-816 FOLATE (BEAKER) (test wcru=089) 19.4 ng/mL >=7.0 [id number] 14:48:00 Test Item Value Reference Range Comments FERRITIN (BEAKER) (test cflv=902) 1698 ng/mL 5-275 IRON, TIBC, % SAT. (WITHOUT FERRITIN)[id number] 13:26:00 Test Item Value Reference Range Comments IRON (BEAKER) (test cvqc=374) 44.0 ug/dL 40.0-160.0 TOTAL IRON BINDING CAPACITY (BEAKER) (test 186 ug/dL 250-450 ojvx=535) IRON % SATURATION (2) (BEAKER) (test wwrw=9363) 24 % 20-55 HEPATITIS B SURFACE [id number] 13:26:00 Test Item Value Reference Range Comments HEPATITIS B SURFACE ANTIGEN (2) (BEAKER) (test Nonreactive Nonreactive cevj=8699) HEPATITIS C [id number] 13:26:00 Test Item Value Reference Range Comments HEPATITIS C ANTIBODY (BEAKER) (test qpti=779) Nonreactive Nonreactive HIV-1 ANTIGEN WITH HIV-1/2 [id number] 13:26:00 Test Item Value Reference Range Comments HIV-1 ANTIGEN WITH HIV 1\T\2 ANTIBODY (2) Nonreactive Nonreactive (BEAKER) (test nmpa=8331) HEPATITIS B SURFACE [id number] 13:19:00 Test Item Value Reference Range Comments HEPATITIS B SURFACE ANTIBODY (BEAKER) (test 34.5 mIU/mL <8.0 jzla=446) HEPATITIS A ANTIBODY, [id number] 13:19:00 Test Item Value Reference Range Comments HEPATITIS A IGM ANTIBODY (BEAKER) (test Nonreactive Nonreactive yvul=836) HEPATITIS B CORE ANTIBODY, [id number] 13:19:00 Test Item Value Reference Range Comments HEPATITIS B CORE TOTAL ANTIBODY (BEAKER) (test Nonreactive Nonreactive omie=319) HEPATITIS A ANTIBODY, [id number] 13:19:00 Test Item Value Reference Range Comments HEPATITIS A IGG ANTIBODY (BEAKER) (test Nonreactive Nonreactive fxmn=5824) PROTHROMBIN [id number] 13:00:00 Test Item Value Reference Range Comments PROTIME (BEAKER) (test emnn=474) 15.5 seconds 11.7-14.7 INR (BEAKER) (test vybm=397) 1.2 <=5.9 RECOMMENDED COUMADIN/WARFARIN INR THERAPY RANGESSTANDARD DOSE: 2.0 - 3.0 Includes: PROPHYLAXIS forvenous thrombosis, systemic embolization; TREATMENT for venous thrombosis and/or pulmonary embolus.HIGH RISK: Target INR is 2.5-3.5 for patients with mechanical heart valves.[id number] 03:31:00 Test Item Value Reference Range Comments PHOSPHORUS (BEAKER) (test qsll=593) 3.5 mg/dL 2.3-4.7 [id number] 03:31:00 Test Item Value Reference Range Comments MAGNESIUM (BEAKER) (test vaoi=388) 1.5 mg/dL 1.6-2.6 COMPREHENSIVE METABOLIC [id number] 03:31:00 Test Item Value Reference Range Comments TOTAL PROTEIN (BEAKER) 6.5 gm/dL 6.0-8.3 (test uvag=875) ALBUMIN (BEAKER) (test 3.7 g/dL 3.5-5.0 uazj=0570) ALKALINE PHOSPHATASE 200 U/L 40-150 (BEAKER) (test xofm=990) BILIRUBIN TOTAL (BEAKER) 0.8 mg/dL 0.2-1.2 (test hmtk=419) SODIUM (BEAKER) (test 142 meq/L 136-145 embd=708) POTASSIUM (BEAKER) (test 3.1 meq/L 3.5-5.1 bxqr=059) CHLORIDE (BEAKER) (test 103 meq/L 98-107 zenu=395) CO2 (BEAKER) (test 24 meq/L 22-29 olmh=192) BLOOD UREA NITROGEN 4 mg/dL 7-21 (BEAKER) (test hxax=206) CREATININE (BEAKER) (test 0.55 mg/dL 0.57-1.25 kdjy=808) GLUCOSE RANDOM (BEAKER) 100 mg/dL 70-105 (test ylkw=575) CALCIUM (BEAKER) (test 8.5 mg/dL 8.4-10.2 ggac=795) AST (SGOT) (BEAKER) (test 318 U/L 5-34 evue=588) ALT (SGPT) (BEAKER) (test 244 U/L 6-55 iyuv=139) EGFR (BEAKER) (test 173 mL/min/1.73 sq ESTIMATED GFR IS NOT gjfj=1633) m ACCURATE CREATININE CLEARANCE IN PREDICTING GLOMERULAR FILTRATION RATE. ESTIMATED GFR IS NOT APPLICABLE FOR DIALYSIS PATIENTS. CBC W/PLT COUNT & AUTO [id number] 03:03:00 Test Item Value Reference Range Comments WHITE BLOOD CELL COUNT (BEAKER) (test iqyo=376) 4.2 K/ L 3.5-10.5 RED BLOOD CELL COUNT (BEAKER) (test mwfz=372) 3.61 M/ L 4.63-6.08 HEMOGLOBIN (BEAKER) (test kerr=744) 12.3 GM/DL 13.7-17.5 HEMATOCRIT (BEAKER) (test bztt=805) 35.9 % 40.1-51.0 MEAN CORPUSCULAR VOLUME (BEAKER) (test mnfg=136) 99.4 fL 79.0-92.2 MEAN CORPUSCULAR HEMOGLOBIN (BEAKER) (test 34.1 pg 25.7-32.2 rhnj=401) MEAN CORPUSCULAR HEMOGLOBIN CONC (BEAKER) (test 34.3 GM/DL 32.3-36.5 okhw=204) RED CELL DISTRIBUTION WIDTH (BEAKER) (test 12.3 % 11.6-14.4 duay=802) PLATELET COUNT (BEAKER) (test zwin=516) 122 K/CU MM 150-450 MEAN PLATELET VOLUME (BEAKER) (test qrrz=612) 9.8 fL 9.4-12.4 NUCLEATED RED BLOOD CELLS (BEAKER) (test 0 /100 WBC 0-0 gqdc=557) NEUTROPHILS RELATIVE PERCENT (BEAKER) (test 70 % oedw=506) LYMPHOCYTES RELATIVE PERCENT (BEAKER) (test 17 % uqxk=448) MONOCYTES RELATIVE PERCENT (BEAKER) (test 11 % uuqp=513) EOSINOPHILS RELATIVE PERCENT (BEAKER) (test 1 % mkuw=702) BASOPHILS RELATIVE PERCENT (BEAKER) (test 1 % paax=548) NEUTROPHILS ABSOLUTE COUNT (BEAKER) (test 2.94 K/ L 1.78-5.38 mrmz=868) LYMPHOCYTES ABSOLUTE COUNT (BEAKER) (test 0.73 K/ L 1.32-3.57 llrt=820) MONOCYTES ABSOLUTE COUNT (BEAKER) (test 0.45 K/ L 0.30-0.82 owht=979) EOSINOPHILS ABSOLUTE COUNT (BEAKER) (test 0.04 K/ L 0.04-0.54 uecy=710) BASOPHILS ABSOLUTE COUNT (BEAKER) (test 0.02 K/ L 0.01-0.08 sdtn=779) IMMATURE GRANULOCYTES-RELATIVE PERCENT (BEAKER) 1 % 0-1 (test hdoq=5094) POCT-GLUCOSE [id number] 12:15:00 Test Item Value Reference Range Comments POC-GLUCOSE METER (BEAKER) 99 mg/dL 70-110 TESTED AT [facility] [address] [facility] (test kycg=3620) [facility] [id number] 06:15:00 Test Item Value Reference Range Comments MAGNESIUM (BEAKER) (test krit=709) 1.8 mg/dL 1.6-2.6 COMPREHENSIVE METABOLIC [id number] 06:15:00 Test Item Value Reference Range Comments TOTAL PROTEIN (BEAKER) 6.6 gm/dL 6.0-8.3 (test mraq=011) ALBUMIN (BEAKER) (test 3.6 g/dL 3.5-5.0 twrb=6387) ALKALINE PHOSPHATASE 149 U/L 40-150 (BEAKER) (test dmdh=470) BILIRUBIN TOTAL (BEAKER) 0.8 mg/dL 0.2-1.2 (test bbfc=985) SODIUM (BEAKER) (test 135 meq/L 136-145 lxqw=431) POTASSIUM (BEAKER) (test 3.6 meq/L 3.5-5.1 uevq=213) CHLORIDE (BEAKER) (test 98 meq/L 98-107 ocwc=598) CO2 (BEAKER) (test 26 meq/L 22-29 kjcc=856) BLOOD UREA NITROGEN 8 mg/dL 7-21 (BEAKER) (test nara=077) CREATININE (BEAKER) (test 0.57 mg/dL 0.57-1.25 lhys=362) GLUCOSE RANDOM (BEAKER) 100 mg/dL 70-105 (test gsoz=107) CALCIUM (BEAKER) (test 9.5 mg/dL 8.4-10.2 ilxh=863) AST (SGOT) (BEAKER) (test 155 U/L 5-34 xosb=787) ALT (SGPT) (BEAKER) (test 151 U/L 6-55 lmyx=999) EGFR (BEAKER) (test 166 mL/min/1.73 sq ESTIMATED GFR IS NOT ismw=8893) m ACCURATE CREATININE CLEARANCE IN PREDICTING GLOMERULAR FILTRATION RATE. ESTIMATED GFR IS NOT APPLICABLE FOR DIALYSIS PATIENTS. CBC W/PLT COUNT & AUTO [id number] 05:30:00 Test Item Value Reference Range Comments WHITE BLOOD CELL COUNT (BEAKER) (test qaok=416) 5.1 K/ L 3.5-10.5 RED BLOOD CELL COUNT (BEAKER) (test gvjo=998) 3.81 M/ L 4.63-6.08 HEMOGLOBIN (BEAKER) (test akpp=491) 13.1 GM/DL 13.7-17.5 HEMATOCRIT (BEAKER) (test papj=812) 37.6 % 40.1-51.0 MEAN CORPUSCULAR VOLUME (BEAKER) (test wtgg=179) 98.7 fL 79.0-92.2 MEAN CORPUSCULAR HEMOGLOBIN (BEAKER) (test 34.4 pg 25.7-32.2 boxc=981) MEAN CORPUSCULAR HEMOGLOBIN CONC (BEAKER) (test 34.8 GM/DL 32.3-36.5 rmsy=656) RED CELL DISTRIBUTION WIDTH (BEAKER) (test 11.5 % 11.6-14.4 prhz=635) PLATELET COUNT (BEAKER) (test olcb=920) 152 K/CU MM 150-450 MEAN PLATELET VOLUME (BEAKER) (test ifzy=611) 10.2 fL 9.4-12.4 NUCLEATED RED BLOOD CELLS (BEAKER) (test 0 /100 WBC 0-0 ozje=759) NEUTROPHILS RELATIVE PERCENT (BEAKER) (test 71 % uedj=870) LYMPHOCYTES RELATIVE PERCENT (BEAKER) (test 14 % jziv=182) MONOCYTES RELATIVE PERCENT (BEAKER) (test 11 % pclb=679) EOSINOPHILS RELATIVE PERCENT (BEAKER) (test 2 % tlet=030) BASOPHILS RELATIVE PERCENT (BEAKER) (test 1 % uruq=600) NEUTROPHILS ABSOLUTE COUNT (BEAKER) (test 3.66 K/ L 1.78-5.38 acmb=232) LYMPHOCYTES ABSOLUTE COUNT (BEAKER) (test 0.71 K/ L 1.32-3.57 chgw=017) MONOCYTES ABSOLUTE COUNT (BEAKER) (test 0.58 K/ L 0.30-0.82 zsgi=448) EOSINOPHILS ABSOLUTE COUNT (BEAKER) (test 0.10 K/ L 0.04-0.54 zymw=797) BASOPHILS ABSOLUTE COUNT (BEAKER) (test 0.04 K/ L 0.01-0.08 oxjc=762) IMMATURE GRANULOCYTES-RELATIVE PERCENT (BEAKER) 1 % 0-1 (test zkll=5694) POCT-GLUCOSE [id number] 11:54:00 Test Item Value Reference Range Comments POC-GLUCOSE METER (BEAKER) 83 mg/dL 70-110 TESTED AT [facility] [address] [facility] (test dlhy=7643) [facility] [id number] [id number] 05:54:00 Test Item Value Reference Range Comments PHOSPHORUS (BEAKER) (test nejw=166) 2.3 mg/dL 2.3-4.7 [id number] 05:54:00 Test Item Value Reference Range Comments MAGNESIUM (BEAKER) (test yubj=318) 2.0 mg/dL 1.6-2.6 COMPREHENSIVE METABOLIC [id number] 05:54:00 Test Item Value Reference Range Comments TOTAL PROTEIN (BEAKER) 6.0 gm/dL 6.0-8.3 (test pmfw=654) ALBUMIN (BEAKER) (test 3.2 g/dL 3.5-5.0 vwnc=8367) ALKALINE PHOSPHATASE 134 U/L 40-150 (BEAKER) (test oaue=961) BILIRUBIN TOTAL (BEAKER) 1.1 mg/dL 0.2-1.2 (test frzj=587) SODIUM (BEAKER) (test 134 meq/L 136-145 zuxv=334) POTASSIUM (BEAKER) (test 3.6 meq/L 3.5-5.1 eobj=244) CHLORIDE (BEAKER) (test 100 meq/L 98-107 nwll=942) CO2 (BEAKER) (test 26 meq/L 22-29 dnsj=686) BLOOD UREA NITROGEN 4 mg/dL 7-21 (BEAKER) (test gpln=411) CREATININE (BEAKER) (test 0.54 mg/dL 0.57-1.25 yrxm=653) GLUCOSE RANDOM (BEAKER) 141 mg/dL 70-105 (test oxth=178) CALCIUM (BEAKER) (test 8.8 mg/dL 8.4-10.2 yagf=464) AST (SGOT) (BEAKER) (test 183 U/L 5-34 dfln=888) ALT (SGPT) (BEAKER) (test 149 U/L 6-55 qvsq=411) EGFR (BEAKER) (test 176 mL/min/1.73 sq ESTIMATED GFR IS NOT vasi=5957) m ACCURATE CREATININE CLEARANCE IN PREDICTING GLOMERULAR FILTRATION RATE. ESTIMATED GFR IS NOT APPLICABLE FOR DIALYSIS PATIENTS. LACTIC ACID, [id number] 05:35:00 Test Item Value Reference Range Comments LACTATE BLOOD VENOUS (2) (BEAKER) (test 1.0 mmol/L 0.5-2.2 iaiq=9369) CBC W/PLT COUNT & AUTO [id number] 05:23:00 Test Item Value Reference Range Comments WHITE BLOOD CELL COUNT (BEAKER) (test mafl=208) 5.0 K/ L 3.5-10.5 RED BLOOD CELL COUNT (BEAKER) (test petc=631) 3.88 M/ L 4.63-6.08 HEMOGLOBIN (BEAKER) (test hpdd=915) 13.0 GM/DL 13.7-17.5 HEMATOCRIT (BEAKER) (test opjm=223) 38.5 % 40.1-51.0 MEAN CORPUSCULAR VOLUME (BEAKER) (test cqwb=203) 99.2 fL 79.0-92.2 MEAN CORPUSCULAR HEMOGLOBIN (BEAKER) (test 33.5 pg 25.7-32.2 iigz=017) MEAN CORPUSCULAR HEMOGLOBIN CONC (BEAKER) (test 33.8 GM/DL 32.3-36.5 obei=540) RED CELL DISTRIBUTION WIDTH (BEAKER) (test 11.6 % 11.6-14.4 ttvz=678) PLATELET COUNT (BEAKER) (test sexn=844) 113 K/CU MM 150-450 MEAN PLATELET VOLUME (BEAKER) (test radi=003) 10.7 fL 9.4-12.4 NUCLEATED RED BLOOD CELLS (BEAKER) (test 0 /100 WBC 0-0 dlpu=901) NEUTROPHILS RELATIVE PERCENT (BEAKER) (test 72 % eawk=415) LYMPHOCYTES RELATIVE PERCENT (BEAKER) (test 15 % bqcv=934) MONOCYTES RELATIVE PERCENT (BEAKER) (test 10 % ckuy=403) EOSINOPHILS RELATIVE PERCENT (BEAKER) (test 2 % mhfz=720) BASOPHILS RELATIVE PERCENT (BEAKER) (test 1 % rfbi=394) NEUTROPHILS ABSOLUTE COUNT (BEAKER) (test 3.56 K/ L 1.78-5.38 lxis=913) LYMPHOCYTES ABSOLUTE COUNT (BEAKER) (test 0.76 K/ L 1.32-3.57 qofr=053) MONOCYTES ABSOLUTE COUNT (BEAKER) (test 0.49 K/ L 0.30-0.82 bthy=102) EOSINOPHILS ABSOLUTE COUNT (BEAKER) (test 0.10 K/ L 0.04-0.54 kkpa=598) BASOPHILS ABSOLUTE COUNT (BEAKER) (test 0.04 K/ L 0.01-0.08 jvkp=166) IMMATURE GRANULOCYTES-RELATIVE PERCENT (BEAKER) 1 % 0-1 (test tjmi=0810) POCT-GLUCOSE [id number] 18:44:00 Test Item Value Reference Range Comments POC-GLUCOSE METER (BEAKER) 100 mg/dL 70-110 TESTED AT [facility] [address] [facility] (test sawj=1192) [facility] [address] [id number] 17:58:00 Test Item Value Reference Range Comments PHOSPHORUS (BEAKER) (test euvv=299) 2.3 mg/dL 2.3-4.7 [id number] 17:58:00 Test Item Value Reference Range Comments MAGNESIUM (BEAKER) (test pwgy=994) 1.8 mg/dL 1.6-2.6 BASIC METABOLIC [id number] 17:58:00 Test Item Value Reference Range Comments SODIUM (BEAKER) (test 137 meq/L 136-145 xxhp=816) POTASSIUM (BEAKER) (test 3.6 meq/L 3.5-5.1 qdfi=631) CHLORIDE (BEAKER) (test 102 meq/L 98-107 agej=491) CO2 (BEAKER) (test 26 meq/L 22-29 roku=053) BLOOD UREA NITROGEN 4 mg/dL 7-21 (BEAKER) (test haqa=594) CREATININE (BEAKER) (test 0.54 mg/dL 0.57-1.25 ihsa=287) GLUCOSE RANDOM (BEAKER) 123 mg/dL 70-105 (test lpiw=339) CALCIUM (BEAKER) (test 8.7 mg/dL 8.4-10.2 lgig=799) EGFR (BEAKER) (test 177 mL/min/1.73 sq m ESTIMATED GFR IS NOT ldln=2072) ACCURATE CREATININE CLEARANCE IN PREDICTING GLOMERULAR FILTRATION RATE. ESTIMATED GFR IS NOT APPLICABLE FOR DIALYSIS PATIENTS. [id number] 16:55:00 Test Item Value Reference Range Comments MAGNESIUM (BEAKER) (test 1.6 mg/dL 1.6-2.6 Specimen slightly hemolyzed uaym=393) [id number] 16:55:00 Test Item Value Reference Range Comments PHOSPHORUS (BEAKER) (test 2.3 mg/dL 2.3-4.7 Specimen slightly hemolyzed nmxj=616) BASIC METABOLIC [id number] 16:55:00 Test Item Value Reference Range Comments SODIUM (BEAKER) (test 138 meq/L 136-145 yfng=366) POTASSIUM (BEAKER) (test 3.7 meq/L 3.5-5.1 Specimen slightly qmez=956) hemolyzed CHLORIDE (BEAKER) (test 105 meq/L 98-107 xnvs=466) CO2 (BEAKER) (test 23 meq/L 22-29 mgbo=539) BLOOD UREA NITROGEN 4 mg/dL 7-21 (BEAKER) (test aqhz=973) CREATININE (BEAKER) (test 0.51 mg/dL 0.57-1.25 Specimen slightly dipp=598) hemolyzed GLUCOSE RANDOM (BEAKER) 99 mg/dL 70-105 (test hiqz=547) CALCIUM (BEAKER) (test 8.0 mg/dL 8.4-10.2 wlvp=175) EGFR (BEAKER) (test 190 mL/min/1.73 sq m ESTIMATED GFR IS NOT omlu=1584) ACCURATE CREATININE CLEARANCE IN PREDICTING GLOMERULAR FILTRATION RATE. ESTIMATED GFR IS NOT APPLICABLE FOR DIALYSIS PATIENTS. POCT-GLUCOSE [id number] 12:41:00 Test Item Value Reference Range Comments POC-GLUCOSE METER (BEAKER) 100 mg/dL 70-110 TESTED AT [facility] [address] [facility] (test lchw=4694) [facility] [address] POCT-GLUCOSE [id number] 08:07:00 Test Item Value Reference Range Comments POC-GLUCOSE METER (BEAKER) 99 mg/dL 70-110 TESTED AT [facility] [address] [facility] (test akuj=3825) [facility] [address] U/S, ABDOMINAL, [id number] 08:05:00Abdomen limited area? Add comment if clarification [...] Verified Date /Time: 09/30/2018 08:05:48 Reading Location: [facility] [id number] Ultrasound Reading Room [id number] 07:23:00 Test Item Value Reference Range Comments PHOSPHORUS (BEAKER) (test wrvf=359) 1.2 mg/dL 2.3-4.7 [id number] 07:11:00 Test Item Value Reference Range Comments MAGNESIUM (BEAKER) (test htti=574) 2.3 mg/dL 1.6-2.6 COMPREHENSIVE METABOLIC [id number] 07:11:00 Test Item Value Reference Range Comments TOTAL PROTEIN (BEAKER) 5.8 gm/dL 6.0-8.3 (test ukrn=810) ALBUMIN (BEAKER) (test 3.1 g/dL 3.5-5.0 xijq=8327) ALKALINE PHOSPHATASE 141 U/L 40-150 (BEAKER) (test pekt=368) BILIRUBIN TOTAL (BEAKER) 1.1 mg/dL 0.2-1.2 (test kxes=781) SODIUM (BEAKER) (test 135 meq/L 136-145 lpfq=460) POTASSIUM (BEAKER) (test 3.7 meq/L 3.5-5.1 gdif=653) CHLORIDE (BEAKER) (test 104 meq/L 98-107 giif=959) CO2 (BEAKER) (test 24 meq/L 22-29 kbpg=312) BLOOD UREA NITROGEN 5 mg/dL 7-21 (BEAKER) (test ejpf=752) CREATININE (BEAKER) (test 0.39 mg/dL 0.57-1.25 dvzu=225) GLUCOSE RANDOM (BEAKER) 114 mg/dL 70-105 (test nbjp=954) CALCIUM (BEAKER) (test 8.3 mg/dL 8.4-10.2 cfih=984) AST (SGOT) (BEAKER) (test 354 U/L 5-34 vilm=325) ALT (SGPT) (BEAKER) (test 188 U/L 6-55 lxqs=758) EGFR (BEAKER) (test 258 mL/min/1.73 sq ESTIMATED GFR IS NOT zywu=0630) m ACCURATE CREATININE CLEARANCE IN PREDICTING GLOMERULAR FILTRATION RATE. ESTIMATED GFR IS NOT APPLICABLE FOR DIALYSIS PATIENTS. LACTIC ACID, [id number] 04:07:00 Test Item Value Reference Range Comments LACTATE BLOOD VENOUS (2) 0.8 mmol/L 0.5-2.2 Specimen slightly hemolyzed (BEAKER) (test xqic=8490) CBC W/PLT COUNT & AUTO [id number] 04:00:00 Test Item Value Reference Range Comments WHITE BLOOD CELL COUNT (BEAKER) (test qmia=123) 6.1 K/ L 3.5-10.5 RED BLOOD CELL COUNT (BEAKER) (test gfsv=837) 3.87 M/ L 4.63-6.08 HEMOGLOBIN (BEAKER) (test ygsr=676) 13.3 GM/DL 13.7-17.5 HEMATOCRIT (BEAKER) (test pybs=858) 39.1 % 40.1-51.0 MEAN CORPUSCULAR VOLUME (BEAKER) (test qlgh=073) 101.0 fL 79.0-92.2 MEAN CORPUSCULAR HEMOGLOBIN (BEAKER) (test 34.4 pg 25.7-32.2 hhhp=797) MEAN CORPUSCULAR HEMOGLOBIN CONC (BEAKER) (test 34.0 GM/DL 32.3-36.5 otuh=133) RED CELL DISTRIBUTION WIDTH (BEAKER) (test 12.1 % 11.6-14.4 tjne=380) PLATELET COUNT (BEAKER) (test yajs=486) 105 K/CU MM 150-450 MEAN PLATELET VOLUME (BEAKER) (test jchd=528) 10.4 fL 9.4-12.4 NUCLEATED RED BLOOD CELLS (BEAKER) (test 0 /100 WBC 0-0 rkot=008) NEUTROPHILS RELATIVE PERCENT (BEAKER) (test 74 % xssm=124) LYMPHOCYTES RELATIVE PERCENT (BEAKER) (test 14 % vczt=767) MONOCYTES RELATIVE PERCENT (BEAKER) (test 10 % jahi=148) EOSINOPHILS RELATIVE PERCENT (BEAKER) (test 1 % stva=004) BASOPHILS RELATIVE PERCENT (BEAKER) (test 1 % usbf=401) NEUTROPHILS ABSOLUTE COUNT (BEAKER) (test 4.52 K/ L 1.78-5.38 mhig=143) LYMPHOCYTES ABSOLUTE COUNT (BEAKER) (test 0.84 K/ L 1.32-3.57 vzvp=030) MONOCYTES ABSOLUTE COUNT (BEAKER) (test 0.62 K/ L 0.30-0.82 gweh=670) EOSINOPHILS ABSOLUTE COUNT (BEAKER) (test 0.06 K/ L 0.04-0.54 xxzr=558) BASOPHILS ABSOLUTE COUNT (BEAKER) (test 0.03 K/ L 0.01-0.08 undd=215) IMMATURE GRANULOCYTES-RELATIVE PERCENT (BEAKER) 0 % 0-1 (test zigh=3092) [id number] 01:32:00 Test Item Value Reference Range Comments PROCALCITONIN (BEAKER) (test tqjr=6998) 0.48 ng/mL <0.05 SEPSIS RISK (ng/mL)Low: 0.05-0.50Intermediate: 0.51-2.00High: & gt;=2.01BASIC METABOLIC [id number] 00:58:00 Test Item Value Reference Range Comments SODIUM (BEAKER) (test 135 meq/L 136-145 sumy=438) POTASSIUM (BEAKER) (test 3.4 meq/L 3.5-5.1 pibr=512) CHLORIDE (BEAKER) (test 104 meq/L 98-107 hacb=962) CO2 (BEAKER) (test 22 meq/L 22-29 uaew=625) BLOOD UREA NITROGEN 7 mg/dL 7-21 (BEAKER) (test shcm=209) CREATININE (BEAKER) (test 0.55 mg/dL 0.57-1.25 dkgp=163) GLUCOSE RANDOM (BEAKER) 113 mg/dL 70-105 (test abiy=206) CALCIUM (BEAKER) (test 8.4 mg/dL 8.4-10.2 byzd=711) EGFR (BEAKER) (test 174 mL/min/1.73 sq m ESTIMATED GFR IS NOT ighp=8291) ACCURATE CREATININE CLEARANCE IN PREDICTING GLOMERULAR FILTRATION RATE. ESTIMATED GFR IS NOT APPLICABLE FOR DIALYSIS PATIENTS. [id number] 00:57:00 Test Item Value Reference Range Comments MAGNESIUM (BEAKER) (test llua=735) 1.5 mg/dL 1.6-2.6 LACTIC ACID, [id number] 00:37:00 Test Item Value Reference Range Comments LACTATE BLOOD VENOUS (2) 0.7 mmol/L 0.5-2.2 Specimen moderately hemolyzed (BEAKER) (test kami=1499) POCT-GLUCOSE [id number] 00:25:00 Test Item Value Reference Range Comments POC-GLUCOSE METER (BEAKER) 101 mg/dL 70-110 TESTED AT [address] (test afts=6311) [place] [id number] POCT-GLUCOSE [id number] 18:32:00 Test Item Value Reference Range Comments POC-GLUCOSE METER (BEAKER) 76 mg/dL 70-110 TESTED AT [address] (test bvhs=4181) [place] [address] [id number] 15:15:00 Test Item Value Reference Range Comments POTASSIUM (BEAKER) (test cqec=897) 3.4 meq/L 3.5-5.1 [id number] 15:15:00 Test Item Value Reference Range Comments MAGNESIUM (BEAKER) (test gxmh=209) 2.1 mg/dL 1.6-2.6 CT, [id number] 12:38:00FINAL REPORT CT abdomen with and without [...] Verified Date/Time: 09/29/2018 12:38:07 Reading Location : [address] Consult Reading Room POCT-GLUCOSE [id number] 11:49:00 Test Item Value Reference Range Comments POC-GLUCOSE METER (BEAKER) 83 mg/dL 70-110 TESTED AT [facility] [address] [place] [address] (test risi=3558) [facility] [address] [id number] 10:49:00 Test Item Value Reference Range Comments TRIGLYCERIDES (BEAKER) (test 71 mg/dL Specimen slightly hemolyzed lmxd=275) TRIGLYCERIDE REFERENCE RANGELow Risk <150Borderline Risk 150-199High Risk 200-499Very High Risk>=[id number] 05:09:00 Test Item Value Reference Range Comments LIPASE (BEAKER) (test zprw=138) > U/L 8-78 [id number] 04:35:00 Test Item Value Reference Range Comments MAGNESIUM (BEAKER) (test 1.6 mg/dL 1.6-2.6 Specimen slightly hemolyzed xhvh=817) [id number] 04:35:00 Test Item Value Reference Range Comments PHOSPHORUS (BEAKER) (test 3.2 mg/dL 2.3-4.7 Specimen slightly hemolyzed lcrr=355) COMPREHENSIVE METABOLIC [id number] 04:35:00 Test Item Value Reference Range Comments TOTAL PROTEIN (BEAKER) 6.8 gm/dL 6.0-8.3 Specimen slightly (test imaz=176) hemolyzed ALBUMIN (BEAKER) (test 3.8 g/dL 3.5-5.0 Specimen slightly ujzc=9956) hemolyzed ALKALINE PHOSPHATASE 130 U/L 40-150 (BEAKER) (test swzw=031) BILIRUBIN TOTAL (BEAKER) 1.7 mg/dL 0.2-1.2 Specimen slightly (test viox=104) hemolyzed SODIUM (BEAKER) (test 138 meq/L 136-145 cszf=200) POTASSIUM (BEAKER) (test 3.7 meq/L 3.5-5.1 Specimen slightly wgvs=369) hemolyzed CHLORIDE (BEAKER) (test 103 meq/L 98-107 pdjd=208) CO2 (BEAKER) (test 17 meq/L 22-29 giqx=605) BLOOD UREA NITROGEN 9 mg/dL 7-21 (BEAKER) (test dbvt=275) CREATININE (BEAKER) (test 0.65 mg/dL 0.57-1.25 Specimen slightly bfcx=092) hemolyzed GLUCOSE RANDOM (BEAKER) 103 mg/dL 70-105 (test weqn=477) CALCIUM (BEAKER) (test 8.7 mg/dL 8.4-10.2 fckt=015) AST (SGOT) (BEAKER) (test 151 U/L 5-34 Specimen slightly cefd=312) hemolyzed ALT (SGPT) (BEAKER) (test 143 U/L 6-55 Specimen slightly qbfq=066) hemolyzed EGFR (BEAKER) (test 143 mL/min/1.73 sq ESTIMATED GFR IS NOT cxen=6432) m ACCURATE CREATININE CLEARANCE IN PREDICTING GLOMERULAR FILTRATION RATE. ESTIMATED GFR IS NOT APPLICABLE FOR DIALYSIS PATIENTS. PROTHROMBIN [id number] 04:34:00 Test Item Value Reference Range Comments PROTIME (BEAKER) (test ceqh=202) 14.6 seconds 11.7-14.7 INR (BEAKER) (test fhnt=007) 1.1 <=5.9 RECOMMENDED COUMADIN/WARFARIN INR THERAPY RANGESSTANDARD DOSE: 2.0 - 3.0 Includes: PROPHYLAXIS forvenous thrombosis, systemic embolization; TREATMENT for venous thrombosis and/or pulmonary embolus.HIGH RISK: Target INR is 2.5-3.5 for patients with mechanical heart valves.CBC W/PLT COUNT & AUTO [id number] 04:09:00 Test Item Value Reference Range Comments WHITE BLOOD CELL COUNT (BEAKER) (test onpu=977) 6.2 K/ L 3.5-10.5 RED BLOOD CELL COUNT (BEAKER) (test fslu=766) 4.33 M/ L 4.63-6.08 HEMOGLOBIN (BEAKER) (test gxwl=946) 15.0 GM/DL 13.7-17.5 HEMATOCRIT (BEAKER) (test pzxl=982) 43.2 % 40.1-51.0 MEAN CORPUSCULAR VOLUME (BEAKER) (test pmas=805) 99.8 fL 79.0-92.2 MEAN CORPUSCULAR HEMOGLOBIN (BEAKER) (test 34.6 pg 25.7-32.2 aqvs=108) MEAN CORPUSCULAR HEMOGLOBIN CONC (BEAKER) (test 34.7 GM/DL 32.3-36.5 yzcb=925) RED CELL DISTRIBUTION WIDTH (BEAKER) (test 12.4 % 11.6-14.4 uusv=032) PLATELET COUNT (BEAKER) (test drut=180) 160 K/CU MM 150-450 MEAN PLATELET VOLUME (BEAKER) (test clue=345) 10.4 fL 9.4-12.4 NUCLEATED RED BLOOD CELLS (BEAKER) (test 0 /100 WBC 0-0 llwp=199) NEUTROPHILS RELATIVE PERCENT (BEAKER) (test 81 % magw=350) LYMPHOCYTES RELATIVE PERCENT (BEAKER) (test 7 % mkvb=494) MONOCYTES RELATIVE PERCENT (BEAKER) (test 10 % skra=383) EOSINOPHILS RELATIVE PERCENT (BEAKER) (test 0 % wnhx=785) BASOPHILS RELATIVE PERCENT (BEAKER) (test 1 % ejrc=366) NEUTROPHILS ABSOLUTE COUNT (BEAKER) (test 5.01 K/ L 1.78-5.38 twgc=017) LYMPHOCYTES ABSOLUTE COUNT (BEAKER) (test 0.44 K/ L 1.32-3.57 gveq=336) MONOCYTES ABSOLUTE COUNT (BEAKER) (test 0.62 K/ L 0.30-0.82 ygpe=706) EOSINOPHILS ABSOLUTE COUNT (BEAKER) (test 0.01 K/ L 0.04-0.54 evzb=391) BASOPHILS ABSOLUTE COUNT (BEAKER) (test 0.03 K/ L 0.01-0.08 pnmb=385) IMMATURE GRANULOCYTES-RELATIVE PERCENT (BEAKER) 1 % 0-1 (test seen=4359)
[2019-05-26] MEDS ORDERED: MEPERIDINE HCL 50 MG/ML ONE ×2 (08:47→10:55)
[2019-05-26] MEDS ORDERED: ONDANSETRON 4 MG/2 ML VIAL ONE (08:47)
[2019-05-26] MEDS ORDERED: NA CHLORIDE 0.9% 1,000 ML ONE (08:47)
[2019-05-26 08:48] LABS: Absolute Lymphocytes (CBC) 2.6 K/uL (0.7-4.9); Basophils % 0.8 % (0-1.3); Hematocrit 40.2 % (39.6-49.0); Lymphocytes % 39.5 % (15.3-44.8); MPV 7.4 fL (7.6-11.3); RBC Red Blood Cell Count 4.61 M/uL (4.33-5.43)
[2019-05-26 09:07] LABS: ALT/SGPT 33 U/L (12-78); AST/SGOT 34 U/L (15-37); Albumin 4.1 g/dL (3.4-5.0); Alkaline Phosphatase 107 U/L (45-117); BUN Blood Urea Nitrogen 13 mg/dL (7-18); Bicarbonate 26 mmol/L (21-32); Bilirubin Direct 0.1 mg/dL (0-0.2); Bilirubin Total 0.3 mg/dL (0.2-1.0); Glucose Level 94 mg/dL (74-106); Lipase 127 U/L (73-393); Potassium 3.8 mmol/L (3.5-5.1); Sodium Level 146 mmol/L (136-145)
--- NOTE | 2019-05-26 11:29 | ER ---
Nurse's Notes [facility] Name: Jonathan Gutierrez Age: 33 yrs Sex: Male : 1985 Arrival Date: 05/26/2019 Time: 08:31 Bed 20 Private MD: Diagnosis: Gastritis, unspecified;Alcohol abuse;Alcohol dependence Presentation: 05/26 08:31 Presenting complaint: EMS states: ABDOMINAL PAIN WITH NAUSEA/VOMITING x3 DAYS. bp Transition of care: patient was not received from another setting of care. Onset of symptoms is unknown. Risk Assessment: Do you want to hurt yourself or someone else? Patient reports no desire to harm self or others. Initial Sepsis Screen: Does the patient meet any 2 criteria? HR > 90 bpm. No. Patient's initial sepsis screen is negative. Does the patient have a suspected source of infection? No. Patient's initial sepsis screen is negative. Care prior to arrival: IV initiated. 20 GA, in the right antecubital area. 08:31 Method Of Arrival: EMS: [facility] bp 08:31 Acuity: NEO 3 bp Triage Assessment: 08:32 General: Appears in no apparent distress. uncomfortable, Behavior is cooperative, bp appropriate for age, anxious. Pain: Complains of pain in right upper quadrant. EENT: No deficits noted. Neuro: Cardiovascular: No deficits noted. Respiratory: No deficits noted. GI: Abdomen is non-distended, Reports upper abdominal pain, nausea, vomiting. : No signs and/or symptoms were reported regarding the genitourinary system. Derm: No deficits noted. No signs and/or symptoms reported regarding the dermatologic system. Musculoskeletal: No deficits noted. Historical: - Allergies: 08:38 No Known Allergies; bp - Home Meds: 08:38 Folic Acid Oral [Active]; Thiamine Oral [Active]; Creon oral oral [Active]; bp - PMHx: 08:38 etoh abuse; Hypertension; liver "spot"; Pancreatitis; ADD/ADHD; bp - Immunization history:: Adult Immunizations up to date. - Social history:: Smoking status: Patient/guardian denies using tobacco. - Ebola Screening: : No symptoms or risks identified at this time. - Family history:: not pertinent. - Hospitalizations: : No recent hospitalization is reported. Screenin:39 Abuse screen: Denies threats or abuse. Denies injuries from another. Nutritional bp screening: No deficits noted. Tuberculosis screening: No symptoms or risk factors identified. Fall Risk None identified. Assessment: 08:39 General: SEE TRIAGE NOTE. bp 09:00 GI: Bowel sounds present X 4 quads. Abd is soft X 4 quads. bp 10:05 Reassessment: ALL CURRENT ORDERS COMPLETED, VS STABLE ON MONITOR. bp 12:12 Reassessment: PT D/C HOME AMBULATORY, DX WITH GASTRITIS AND ALCOHOL ABUSE. bp Vital Signs: 08:32 BP 149 / 109; Pulse 108; Resp 16; Temp 97.8; Pulse Ox 100% ; Weight 72.57 kg; Height 5 bp ft. 11 in. (180.34 cm); 10:06 BP 137 / 94; Pulse 83; Resp 16; Pulse Ox 100% ; bp 12:13 BP 143 / 92; Pulse 98; Resp 17; Temp 97.9; Pulse Ox 100% ; bp 08:32 Body Mass Index 22.32 (72.57 kg, 180.34 cm) bp ED Course: 08:31 Patient arrived in ED. bp 08:32 Trenton Lubin MD is Attending Physician. rn 08:32 Triage completed. bp 08:39 Arm band placed on. bp 08:39 Patient has correct armband on for positive identification. Bed in low position. Call bp light in reach. Side rails up X2. 08:40 Maintain EMS IV. Site clean \\T\\ dry. Gauge \\T\\ site: 20 R AC. bp 08:42 Alphonso Piedra, RN is Primary Nurse. bp 08:43 Initial lab(s) drawn, by me, sent to lab. ms 12:12 No provider procedures requiring assistance completed. IV discontinued, intact, bp bleeding controlled, No redness/swelling at site. Pressure dressing applied. Administered Medications: 08:45 Drug: NS 0.9% 1000 ml Route: IV; Rate: 1000 ml; Site: right antecubital; bp 10:30 Follow up: IV Status: Completed infusion; IV Intake: 1000ml bp 08:45 Drug: Demerol 50 mg Route: IVP; Site: right antecubital; bp 10:04 Follow up: Response: Pain is decreased bp 08:45 Drug: Zofran 4 mg Route: IVP; Site: right antecubital; bp 10:05 Follow up: Response: No adverse reaction bp 10:59 Drug: Demerol 50 mg Route: IVP; Site: right antecubital; bp 12:12 Follow up: Response: Pain is decreased bp Intake: 10:30 IV: 1000ml; Total: 1000ml. bp Outcome: 11:28 Discharge ordered by . rn 12:12 Discharged to home ambulatory. bp 12:12 Condition: stable 12:12 Discharge instructions given to patient, Instructed on discharge instructions, follow up and referral plans. medication usage, Demonstrated understanding of instructions, follow-up care, medications, Prescriptions given X 2. 12:14 Patient left the ED. bp Signatures: Carli Lawrence ms, Roman, MD MD rn Alphonso Piedra RN RN bp
--- NOTE | 2019-05-26 11:30 | EDPHYS ---
Physician Documentation [facility] Name: Jonathan Gutierrez Age: 33 yrs Sex: Male : 1985 Arrival Date: 05/26/2019 Time: 08:31 Bed 20 Private MD: ED Physician Trenton Lubin HPI: 05/26 09:48 This 33 yrs old Male presents to ER via EMS with complaints of Abdominal Pain.rn 09:48 The patient presents with abdominal pain in the epigastric area. Onset: The rn symptoms/episode began/occurred at an unknown time. The symptoms do not radiate. Associated signs and symptoms: Pertinent positives: nausea, Pertinent negatives: chest pain, constipation, diarrhea, fever, shortness of breath, testicular pain, vomiting blood. The symptoms are described as achy, crampy. Modifying factors: The symptoms are alleviated by nothing, the symptoms are aggravated by touching the area. Severity of pain: At its worst the pain was moderate in the emergency department the pain has improved. The patient has experienced similar episodes in the past. The patient has not recently seen a physician. Reports chronic alcoholic, is trying to quit, told me last drink was 2 weeks ago, reports called 911 for upper abd pain similar to previous episodes of pancreatitis. Reports nausea, no diarrhea. No chest pain/sob. . Historical: - Allergies: 08:38 No Known Allergies; bp - Home Meds: 08:38 Folic Acid Oral [Active]; Thiamine Oral [Active]; Creon oral oral [Active]; bp - PMHx: 08:38 etoh abuse; Hypertension; liver "spot"; Pancreatitis; ADD/ADHD; bp - Immunization history:: Adult Immunizations up to date. - Social history:: Smoking status: Patient/guardian denies using tobacco. - Ebola Screening: : No symptoms or risks identified at this time. - Family history:: not pertinent. - Hospitalizations: : No recent hospitalization is reported. ROS: 09:48 Constitutional: Negative for fever, chills, and weight loss, Eyes: Negative for injury, rn pain, redness, and discharge, Cardiovascular: Negative for chest pain, palpitations, and edema, Respiratory: Negative for shortness of breath, cough, wheezing, and pleuritic chest pain, Abdomen/GI: Negative for vomiting, diarrhea, and constipation, Back: Negative for injury and pain, : Negative for injury, bleeding, discharge, and swelling, MS/Extremity: Negative for injury and deformity, Skin: Negative for injury, rash, and discoloration, Neuro: Negative for headache, weakness, numbness, tingling, and seizure. Exam: 09:48 Constitutional: This is a well developed, well nourished patient who is awake, alert, rn and in no acute distress. Ambulatory to room without difficulty or assistance. Head/Face: Normocephalic, atraumatic. ENT: dry MM Cardiovascular: Tachycardic, regular, distal pulses intact and equal Respiratory: No increased work of breathing, no retractions or nasal flaring. Abdomen/GI: soft, + mild epigastric tenderness, no rebound MS/ Extremity: Pulses equal, no cyanosis. Neurovascular intact. Full, normal range of motion. Equal circumference. Neuro: Awake and alert, GCS 15, oriented to person, place, time, and situation. Cranial nerves II-XII grossly intact. Motor strength 5/5 in all extremities. Sensory grossly intact. Cerebellar exam normal. Normal gait. Vital Signs: 08:32 BP 149 / 109; Pulse 108; Resp 16; Temp 97.8; Pulse Ox 100% ; Weight 72.57 kg; Height 5 bp ft. 11 in. (180.34 cm); 10:06 BP 137 / 94; Pulse 83; Resp 16; Pulse Ox 100% ; bp 12:13 BP 143 / 92; Pulse 98; Resp 17; Temp 97.9; Pulse Ox 100% ; bp 08:32 Body Mass Index 22.32 (72.57 kg, 180.34 cm) bp MDM: 08:32 Patient medically screened. rn 11:26 Differential diagnosis: pancreatitis, gastritis, alcoholic complications. Data rn reviewed: vital signs, nurses notes, lab test result(s), and as a result, I will discharge patient. Counseling: I had a detailed discussion with the patient and/or guardian regarding: the historical points, exam findings, and any diagnostic results supporting the discharge/admit diagnosis, lab results, the need for outpatient follow up, to return to the emergency department if symptoms worsen or persist or if there are any questions or concerns that arise at home. Response to treatment: the patient's symptoms have mildly improved after treatment, and as a result, I will discharge patient. Special discussion: I discussed with the patient/guardian in detail that at this point there is no indication for admission to the hospital. It is understood, however, that if the symptoms persist or worsen the patient needs to return immediately for re-evaluation. ED course: Pt still with ETOH in system, no acute findings on labs, likely combination of alcoholic gastritis and chronic pancreatitis, will dc home with prn pain meds and nausea medication. I have had multiple talks with patient regarding cessation and quitting of ETOh. . 05/26 08:32 Order name: Basic Metabolic Panel; Complete Time: 10:12 rn 05/26 08:32 Order name: CBC with Diff; Complete Time: 10: rn 05/26 08:32 Order name: Hepatic Function; Complete Time: 10: rn 05/26 08:32 Order name: Lipase; Complete Time: : rn 05/26 08:40 Order name: ETOH Level; Complete Time: 10: rn 05/26 08:32 Order name: IV Saline Lock; Complete Time: 08:41 rn 05/26 08:32 Order name: Labs collected and sent; Complete Time: 08:41 rn Administered Medications: 08:45 Drug: NS 0.9% 1000 ml Route: IV; Rate: 1000 ml; Site: right antecubital; bp 10:30 Follow up: IV Status: Completed infusion; IV Intake: 1000ml bp 08:45 Drug: Demerol 50 mg Route: IVP; Site: right antecubital; bp 10:04 Follow up: Response: Pain is decreased bp 08:45 Drug: Zofran 4 mg Route: IVP; Site: right antecubital; bp 10:05 Follow up: Response: No adverse reaction bp 10:59 Drug: Demerol 50 mg Route: IVP; Site: right antecubital; bp 12:12 Follow up: Response: Pain is decreased bp Disposition: 05/26/19 11:28 Discharged to Home. Impression: Gastritis, unspecified, Alcohol abuse, Alcohol dependence. - Condition is Stable. - Discharge Instructions: Gastritis, Adult, Alcohol Abuse and Nutrition, Alcoholic Liver Disease. - Prescriptions for Zofran ODT 4 mg Oral tablet,disintegrating - place 1 tablet by TRANSLINGUAL route every 8-10 hours As needed; 20 tablet. Tylenol- Codeine #3 300-30 mg Oral Tablet - take 1 tablet by ORAL route every 6 hours As needed; 15 tablet. - Medication Reconciliation Form, Thank You Letter, Antibiotic Education, Prescription Opioid Use form. - Follow up: Private Physician; When: As needed; Reason: Recheck today's complaints, Re-evaluation by your physician. - Problem is chronic. - Symptoms have improved. Signatures: Dispatcher [employer] EDMS Trenton Lubin MD MD rn Peltier, Brian, RN RN bp Corrections: (The following items were deleted from the chart) 12:14 11:28 05/26/2019 11:28 Discharged to Home. Impression: Gastritis, unspecified; Alcohol bp abuse; Alcohol dependence. Condition is Stable. Forms are Medication Reconciliation Form, Thank You Letter, Antibiotic Education, Prescription Opioid Use. Follow up: Private Physician; When: As needed; Reason: Recheck today's complaints, Re-evaluation by your physician. Problem is chronic. Symptoms have improved. rn
[2019-05-26 12:45] VITALS: O2SAT 100
[2019-05-26 12:48] VITALS: BP 143/92; TEMP 97.9
== END 2019-05-26 12:14 | disposition home or self-care (01) ==
LOC: ER 08:28
DX: K29.70 Gastritis, unspecified, without bleeding (principal); F10.20 Alcohol dependence, uncomplicated
CPT/HCPCS: 36415; 80048; 80076; 80320; 83690; 85025; 96361; 96374; 96375; 99284; J2175; J2405; J7030

== ENCOUNTER 2019-06-01 14:53 | Inpatient (IN) | payer SELFPAY ==
--- OUTSIDE RECORDS SUMMARY | 2019-06-01 15:00 | XMS REPORT ---
:1985 [facility] Address [address] [place] [address] Care Team Providers Name Role Phone DMITRI [...] Value Reference Range Comments LIPASE (BEAKER) (test rlcw=488) 257 U/L 8-78 BASIC METABOLIC [id number] 03:05:00 Test Item Value Reference Range Comments SODIUM (BEAKER) (test 136 meq/L 136-145 kvbe=526) POTASSIUM (BEAKER) (test 4.5 meq/L 3.5-5.1 Specimen slightly cdkb=993) hemolyzed CHLORIDE (BEAKER) (test 104 meq/L 98-107 edog=954) CO2 (BEAKER) (test 25 meq/L 22-29 swcg=533) BLOOD UREA NITROGEN 5 mg/dL 7-21 (BEAKER) (test fyhu=706) CREATININE (BEAKER) (test 0.57 mg/dL 0.57-1.25 Specimen slightly zybr=629) hemolyzed GLUCOSE RANDOM (BEAKER) 87 mg/dL 70-105 (test yrxr=573) CALCIUM (BEAKER) (test 8.4 mg/dL 8.4-10.2 rchb=170) EGFR (BEAKER) (test 166 mL/min/1.73 sq m ESTIMATED GFR IS NOT yfbl=1426) ACCURATE CREATININE CLEARANCE IN PREDICTING GLOMERULAR FILTRATION RATE. ESTIMATED GFR IS NOT APPLICABLE FOR DIALYSIS PATIENTS. BASIC METABOLIC [id number] 04:41:00 Test Item Value Reference Range Comments SODIUM (BEAKER) (test 134 meq/L 136-145 csex=298) POTASSIUM (BEAKER) (test 3.9 meq/L 3.5-5.1 Specimen slightly dxae=260) hemolyzed CHLORIDE (BEAKER) (test 102 meq/L 98-107 qqtc=765) CO2 (BEAKER) (test 26 meq/L 22-29 plul=347) BLOOD UREA NITROGEN 3 mg/dL 7-21 (BEAKER) (test lmfr=396) CREATININE (BEAKER) (test 0.50 mg/dL 0.57-1.25 Specimen slightly ddbw=671) hemolyzed GLUCOSE RANDOM (BEAKER) 95 mg/dL 70-105 (test tfov=828) CALCIUM (BEAKER) (test 7.9 mg/dL 8.4-10.2 pkrh=996) EGFR (BEAKER) (test 193 mL/min/1.73 sq m ESTIMATED GFR IS NOT ptjx=9846) ACCURATE CREATININE CLEARANCE IN PREDICTING GLOMERULAR FILTRATION RATE. ESTIMATED GFR IS NOT APPLICABLE FOR DIALYSIS PATIENTS. [id number] 04:31:00 Test Item Value Reference Range Comments LIPASE (BEAKER) (test qtsl=813) 334 U/L 8-78 TROPONIN [id number] 03:00:00 Test Item Value Reference Range Comments TROPONIN I (BEAKER) (test zerq=868) < ng/mL 0.00-0.03 Troponin I (TnI) levels [...] failure, acidosis, acute neurological disease, and persistent tachyarrhythmia.[id number] 02:54:00 Test Item Value Reference Range Comments MAGNESIUM (BEAKER) (test 1.9 mg/dL 1.6-2.6 Specimen slightly hemolyzed kcmz=766) BASIC METABOLIC [id number] 02:54:00 Test Item Value Reference Range Comments SODIUM (BEAKER) (test 136 meq/L 136-145 gbgd=996) POTASSIUM (BEAKER) (test 3.8 meq/L 3.5-5.1 Specimen slightly rvww=591) hemolyzed CHLORIDE (BEAKER) (test 100 meq/L 98-107 qvpd=928) CO2 (BEAKER) (test 28 meq/L 22-29 egyt=039) BLOOD UREA NITROGEN 3 mg/dL 7-21 (BEAKER) (test wezy=504) CREATININE (BEAKER) (test 0.56 mg/dL 0.57-1.25 Specimen slightly oyjc=738) hemolyzed GLUCOSE RANDOM (BEAKER) 111 mg/dL 70-105 (test ufge=075) CALCIUM (BEAKER) (test 8.3 mg/dL 8.4-10.2 ssqo=432) EGFR (BEAKER) (test 169 mL/min/1.73 sq m ESTIMATED GFR IS NOT rspn=9402) ACCURATE CREATININE CLEARANCE IN PREDICTING GLOMERULAR FILTRATION RATE. ESTIMATED GFR IS NOT APPLICABLE FOR DIALYSIS PATIENTS. [id number] 02:54:00 Test Item Value Reference Range Comments LIPASE (BEAKER) (test vnuh=577) 755 U/L 8-78 CBC W/PLT COUNT & AUTO [id number] 02:33:00 Test Item Value Reference Range Comments WHITE BLOOD CELL COUNT (BEAKER) (test yrkg=094) 5.7 K/ L 3.5-10.5 RED BLOOD CELL COUNT (BEAKER) (test jsqa=462) 3.90 M/ L 4.63-6.08 HEMOGLOBIN (BEAKER) (test iknx=312) 12.0 GM/DL 13.7-17.5 HEMATOCRIT (BEAKER) (test quva=461) 36.5 % 40.1-51.0 MEAN CORPUSCULAR VOLUME (BEAKER) (test xjjo=633) 93.6 fL 79.0-92.2 MEAN CORPUSCULAR HEMOGLOBIN (BEAKER) (test 30.8 pg 25.7-32.2 ookp=493) MEAN CORPUSCULAR HEMOGLOBIN CONC (BEAKER) (test 32.9 GM/DL 32.3-36.5 ibmy=583) RED CELL DISTRIBUTION WIDTH (BEAKER) (test 13.6 % 11.6-14.4 grwi=040) PLATELET COUNT (BEAKER) (test ejbk=750) 155 K/CU MM 150-450 MEAN PLATELET VOLUME (BEAKER) (test ihsd=885) 9.4 fL 9.4-12.4 NUCLEATED RED BLOOD CELLS (BEAKER) (test 0 /100 WBC 0-0 yqgc=356) NEUTROPHILS RELATIVE PERCENT (BEAKER) (test 70 % sjaw=292) LYMPHOCYTES RELATIVE PERCENT (BEAKER) (test 19 % ywrz=503) MONOCYTES RELATIVE PERCENT (BEAKER) (test 8 % zjpn=093) EOSINOPHILS RELATIVE PERCENT (BEAKER) (test 2 % nfdg=488) BASOPHILS RELATIVE PERCENT (BEAKER) (test 1 % vaji=076) NEUTROPHILS ABSOLUTE COUNT (BEAKER) (test 4.03 K/ L 1.78-5.38 lnse=370) LYMPHOCYTES ABSOLUTE COUNT (BEAKER) (test 1.07 K/ L 1.32-3.57 xdcn=806) MONOCYTES ABSOLUTE COUNT (BEAKER) (test 0.45 K/ L 0.30-0.82 ndle=095) EOSINOPHILS ABSOLUTE COUNT (BEAKER) (test 0.12 K/ L 0.04-0.54 wqoj=393) BASOPHILS ABSOLUTE COUNT (BEAKER) (test 0.05 K/ L 0.01-0.08 mywt=457) IMMATURE GRANULOCYTES-RELATIVE PERCENT (BEAKER) 0 % 0-1 (test rdfu=6738) RAD, CHEST, 1 VIEW, NON [id number] 02:26:00Reason for exam:->pleuritic chest painShould this be [...] To [facility] MDReport Verified Date/Time: 03/22/2019 02:26:18 [id number] 08:35:00 Test Item Value Reference Range Comments MAGNESIUM (BEAKER) (test 1.4 mg/dL 1.6-2.6 Specimen slightly hemolyzed dihb=584) BASIC METABOLIC [id number] 08:35:00 Test Item Value Reference Range Comments SODIUM (BEAKER) (test 138 meq/L 136-145 upob=207) POTASSIUM (BEAKER) (test 3.7 meq/L 3.5-5.1 Specimen slightly pdxa=478) hemolyzed CHLORIDE (BEAKER) (test 102 meq/L 98-107 mihl=777) CO2 (BEAKER) (test 23 meq/L 22-29 dagx=633) BLOOD UREA NITROGEN 4 mg/dL 7-21 (BEAKER) (test bauv=984) CREATININE (BEAKER) (test 0.48 mg/dL 0.57-1.25 Specimen slightly qbqb=397) hemolyzed GLUCOSE RANDOM (BEAKER) 53 mg/dL 70-105 (test lfkc=515) CALCIUM (BEAKER) (test 8.1 mg/dL 8.4-10.2 uqyh=569) EGFR (BEAKER) (test 202 mL/min/1.73 sq m ESTIMATED GFR IS NOT fmrw=5793) ACCURATE CREATININE CLEARANCE IN PREDICTING GLOMERULAR FILTRATION RATE. ESTIMATED GFR IS NOT APPLICABLE FOR DIALYSIS PATIENTS. HEPATIC FUNCTION [id number] 08:35:00 Test Item Value Reference Range Comments TOTAL PROTEIN (BEAKER) (test 6.2 gm/dL 6.0-8.3 Specimen slightly hemolyzed hmtm=082) ALBUMIN (BEAKER) (test 2.7 g/dL 3.5-5.0 Specimen slightly hemolyzed laxn=6885) BILIRUBIN TOTAL (BEAKER) (test 0.5 mg/dL 0.2-1.2 Specimen slightly hemolyzed rvxy=099) BILIRUBIN DIRECT (BEAKER) (test 0.3 mg/dL 0.1-0.5 Specimen slightly hemolyzed pzoc=097) ALKALINE PHOSPHATASE (BEAKER) 151 U/L 40-150 (test vuta=250) AST (SGOT) (BEAKER) (test 64 U/L 5-34 Specimen slightly hemolyzed jefn=997) ALT (SGPT) (BEAKER) (test 21 U/L 6-55 Specimen slightly hemolyzed rarf=780) [id number] 08:35:00 Test Item Value Reference Range Comments LIPASE (BEAKER) (test gmpg=427) 242 U/L 8-78 CBC W/PLT COUNT & AUTO [id number] 06:25:00 Test Item Value Reference Range Comments WHITE BLOOD CELL COUNT (BEAKER) (test pmqv=071) 4.2 K/ L 3.5-10.5 RED BLOOD CELL COUNT (BEAKER) (test styc=690) 4.14 M/ L 4.63-6.08 HEMOGLOBIN (BEAKER) (test mteg=276) 12.7 GM/DL 13.7-17.5 HEMATOCRIT (BEAKER) (test jidt=179) 39.8 % 40.1-51.0 MEAN CORPUSCULAR VOLUME (BEAKER) (test engq=064) 96.1 fL 79.0-92.2 MEAN CORPUSCULAR HEMOGLOBIN (BEAKER) (test 30.7 pg 25.7-32.2 fdxf=458) MEAN CORPUSCULAR HEMOGLOBIN CONC (BEAKER) (test 31.9 GM/DL 32.3-36.5 sfkv=996) RED CELL DISTRIBUTION WIDTH (BEAKER) (test 13.5 % 11.6-14.4 kmyu=331) PLATELET COUNT (BEAKER) (test eirg=618) 186 K/CU MM 150-450 MEAN PLATELET VOLUME (BEAKER) (test xoyj=001) 10.9 fL 9.4-12.4 NUCLEATED RED BLOOD CELLS (BEAKER) (test 0 /100 WBC 0-0 dvwp=414) NEUTROPHILS RELATIVE PERCENT (BEAKER) (test 55 % yqcr=046) LYMPHOCYTES RELATIVE PERCENT (BEAKER) (test 31 % cjbq=880) MONOCYTES RELATIVE PERCENT (BEAKER) (test 8 % gbfe=439) EOSINOPHILS RELATIVE PERCENT (BEAKER) (test 5 % nlam=375) BASOPHILS RELATIVE PERCENT (BEAKER) (test 1 % bapz=101) NEUTROPHILS ABSOLUTE COUNT (BEAKER) (test 2.28 K/ L 1.78-5.38 clru=106) LYMPHOCYTES ABSOLUTE COUNT (BEAKER) (test 1.28 K/ L 1.32-3.57 ahej=730) MONOCYTES ABSOLUTE COUNT (BEAKER) (test 0.35 K/ L 0.30-0.82 mgmz=022) EOSINOPHILS ABSOLUTE COUNT (BEAKER) (test 0.21 K/ L 0.04-0.54 yjgm=860) BASOPHILS ABSOLUTE COUNT (BEAKER) (test 0.05 K/ L 0.01-0.08 uchx=256) IMMATURE GRANULOCYTES-RELATIVE PERCENT (BEAKER) 0 % 0-1 (test drfk=7257) [id number] 07:42:00 Test Item Value Reference Range Comments MAGNESIUM (BEAKER) (test pvgp=558) 1.5 mg/dL 1.6-2.6 BASIC METABOLIC [id number] 07:42:00 Test Item Value Reference Range Comments SODIUM (BEAKER) (test 140 meq/L 136-145 gmfh=652) POTASSIUM (BEAKER) (test 3.3 meq/L 3.5-5.1 ftse=653) CHLORIDE (BEAKER) (test 106 meq/L 98-107 jcrj=298) CO2 (BEAKER) (test 27 meq/L 22-29 rlte=978) BLOOD UREA NITROGEN 6 mg/dL 7-21 (BEAKER) (test bshe=903) CREATININE (BEAKER) (test 0.53 mg/dL 0.57-1.25 kyji=103) GLUCOSE RANDOM (BEAKER) 81 mg/dL 70-105 (test wunh=171) CALCIUM (BEAKER) (test 8.2 mg/dL 8.4-10.2 tmeq=725) EGFR (BEAKER) (test 180 mL/min/1.73 sq m ESTIMATED GFR IS NOT hgen=2190) ACCURATE CREATININE CLEARANCE IN PREDICTING GLOMERULAR FILTRATION RATE. ESTIMATED GFR IS NOT APPLICABLE FOR DIALYSIS PATIENTS. LIPID [id number] 07:42:00 Test Item Value Reference Range Comments TRIGLYCERIDES (BEAKER) (test lurg=879) 63 mg/dL CHOLESTEROL (BEAKER) (test hnpc=893) 101 mg/dL HDL CHOLESTEROL (BEAKER) (test exna=870) 20 mg/dL LDL CHOLESTEROL CALCULATED (BEAKER) (test 68 mg/dL ofwb=939) Triglyceride Reference Range: Low Risk <150 Borderline 150- 199 High Risk 200-499 Very High Risk >=500Cholesterol Reference Range: Low Risk <200 Borderline 200-239 High Risk > 240HDL Cholesterol Reference Range: Low Risk >=60 High Risk <40LDL Cholesterol Reference Range: Optimal <100 Near Optimal 100-129 Borderline 130-159 High 160-189 Very High >=190HEPATIC FUNCTION [id number] 07:42:00 Test Item Value Reference Range Comments TOTAL PROTEIN (BEAKER) (test owux=791) 6.1 gm/dL 6.0-8.3 ALBUMIN (BEAKER) (test puci=1125) 2.7 g/dL 3.5-5.0 BILIRUBIN TOTAL (BEAKER) (test hnml=459) 0.6 mg/dL 0.2-1.2 BILIRUBIN DIRECT (BEAKER) (test zsvy=936) 0.4 mg/dL 0.1-0.5 ALKALINE PHOSPHATASE (BEAKER) (test vxev=499) 157 U/L 40-150 AST (SGOT) (BEAKER) (test pfmv=713) 58 U/L 5-34 ALT (SGPT) (BEAKER) (test fkdf=788) 21 U/L 6-55 CBC W/PLT COUNT & AUTO [id number] 05:47:00 Test Item Value Reference Range Comments WHITE BLOOD CELL COUNT (BEAKER) (test uppx=380) 4.3 K/ L 3.5-10.5 RED BLOOD CELL COUNT (BEAKER) (test aojg=739) 3.66 M/ L 4.63-6.08 HEMOGLOBIN (BEAKER) (test ebqg=002) 11.4 GM/DL 13.7-17.5 HEMATOCRIT (BEAKER) (test mxmb=402) 35.8 % 40.1-51.0 MEAN CORPUSCULAR VOLUME (BEAKER) (test zysv=400) 97.8 fL 79.0-92.2 MEAN CORPUSCULAR HEMOGLOBIN (BEAKER) (test 31.1 pg 25.7-32.2 cqti=423) MEAN CORPUSCULAR HEMOGLOBIN CONC (BEAKER) (test 31.8 GM/DL 32.3-36.5 laso=799) RED CELL DISTRIBUTION WIDTH (BEAKER) (test 14.2 % 11.6-14.4 xmei=835) PLATELET COUNT (BEAKER) (test ebbf=550) 170 K/CU MM 150-450 MEAN PLATELET VOLUME (BEAKER) (test hzsf=086) 9.9 fL 9.4-12.4 NUCLEATED RED BLOOD CELLS (BEAKER) (test 0 /100 WBC 0-0 tntf=327) NEUTROPHILS RELATIVE PERCENT (BEAKER) (test 55 % ceuc=339) LYMPHOCYTES RELATIVE PERCENT (BEAKER) (test 30 % wpdj=284) MONOCYTES RELATIVE PERCENT (BEAKER) (test 10 % amlx=384) EOSINOPHILS RELATIVE PERCENT (BEAKER) (test 4 % olnq=217) BASOPHILS RELATIVE PERCENT (BEAKER) (test 1 % bblt=658) NEUTROPHILS ABSOLUTE COUNT (BEAKER) (test 2.36 K/ L 1.78-5.38 xypc=041) LYMPHOCYTES ABSOLUTE COUNT (BEAKER) (test 1.30 K/ L 1.32-3.57 npwx=570) MONOCYTES ABSOLUTE COUNT (BEAKER) (test 0.41 K/ L 0.30-0.82 rtyb=767) EOSINOPHILS ABSOLUTE COUNT (BEAKER) (test 0.18 K/ L 0.04-0.54 tmiv=022) BASOPHILS ABSOLUTE COUNT (BEAKER) (test 0.03 K/ L 0.01-0.08 njas=922) IMMATURE GRANULOCYTES-RELATIVE PERCENT (BEAKER) 1 % 0-1 (test qoab=7446) RAPID DRUG SCREEN, [id number] 23:57:00 Test Item Value Reference Range Comments BARBITURATE URINE (BEAKER) (test ggls=346) Negative Negative BENZODIAZEPINE SCREEN URINE (BEAKER) (test Positive Negative gxww=145) COCAINE (METAB.) SCREEN (BEAKER) (test kjyo=4086) Negative Negative METHADONE SCREEN (BEAKER) (test mntn=3585) Negative Negative OPIATE SCREEN URINE (BEAKER) (test mycx=070) Negative Negative CANNABINOID SCREEN URINE (BEAKER) (test mbkc=907) Positive Negative AMPH/METHAMPH SCREEN (BEAKER) (test bgfi=2273) Positive Negative PHENCYCLIDINE SCREEN URINE (BEAKER) (test avri=316) Negative Negative DRUG CUTOFF CONC.Cocaine 300 ng/mL Cannabinoid 50 ng/mLBenzodiazepine 200 ng/mLBarbiturate 200 ng/ mLPhencyclidine 25 ng/mLOpiate 300 ng/mLMethadone 300 ng/mLAmphetamine/ 1000 ng/mL MethamphetamineThis assay provides an unconfirmed qualitative test result for the clinical management of patients in emergency situations. Chain of custody not maintained. Some prju-lpj-arddzgo medications, as well as adulterants, may cause inaccurate results. Clinical correlation should be applied. A more comprehensivedrug screen or confirmation of a detected drug may be performed upon request.BASIC METABOLIC [id number] 23:23:00 Test Item Value Reference Range Comments SODIUM (BEAKER) (test 139 meq/L 136-145 amfo=449) POTASSIUM (BEAKER) (test 3.1 meq/L 3.5-5.1 icyl=136) CHLORIDE (BEAKER) (test 103 meq/L 98-107 zzjr=440) CO2 (BEAKER) (test 28 meq/L 22-29 ktfz=736) BLOOD UREA NITROGEN 8 mg/dL 7-21 (BEAKER) (test dqpa=546) CREATININE (BEAKER) (test 0.60 mg/dL 0.57-1.25 lzno=747) GLUCOSE RANDOM (BEAKER) 92 mg/dL 70-105 (test zsmc=334) CALCIUM (BEAKER) (test 8.6 mg/dL 8.4-10.2 tdda=449) EGFR (BEAKER) (test 156 mL/min/1.73 sq m ESTIMATED GFR IS NOT bfyc=3314) ACCURATE CREATININE CLEARANCE IN PREDICTING GLOMERULAR FILTRATION RATE. ESTIMATED GFR IS NOT APPLICABLE FOR DIALYSIS PATIENTS. HEPATIC FUNCTION [id number] 23:23:00 Test Item Value Reference Range Comments TOTAL PROTEIN (BEAKER) (test vsxd=749) 7.1 gm/dL 6.0-8.3 ALBUMIN (BEAKER) (test givj=7931) 3.2 g/dL 3.5-5.0 BILIRUBIN TOTAL (BEAKER) (test ykpo=012) 0.5 mg/dL 0.2-1.2 BILIRUBIN DIRECT (BEAKER) (test pund=485) 0.4 mg/dL 0.1-0.5 ALKALINE PHOSPHATASE (BEAKER) (test ptye=284) 187 U/L 40-150 AST (SGOT) (BEAKER) (test gdlc=561) 62 U/L 5-34 ALT (SGPT) (BEAKER) (test fpir=472) 24 U/L 6-55 [id number] 22:57:00 Test Item Value Reference Range Comments LIPASE (BEAKER) (test ggcs=464) 957 U/L 8-78 [id number] 22:57:00 Test Item Value Reference Range Comments AMYLASE (BEAKER) (test kxlb=445) 391 U/L 25-125 [id number] 22:56:00 Test Item Value Reference Range Comments PROTIME (BEAKER) (test ckwl=203) 15.8 seconds 11.9-14.2 INR (BEAKER) (test jdom=933) 1.3 <=5.9 PARTIAL THROMBOPLASTIN TIME (BEAKER) (test 30.9 seconds 22.5-36.0 pcfa=381) Effective 12/11/2018: PT Reference Range ChangeNew: 11.9-14.2 Previous: 11.7- 14.7RECOMMENDED COUMADIN/WARFARIN INR THERAPY RANGESSTANDARD DOSE: 2.0-3.0 Includes: PROPHYLAXIS for venous thrombosis, systemic embolization; TREATMENT for venous thrombosis and/or pulmonary embolus.HIGH RISK: Target INR is2.5-3.5 for patients wiht mechanical heart valves.CBC W/PLT COUNT & AUTO [id number] 22:41:00 Test Item Value Reference Range Comments WHITE BLOOD CELL COUNT (BEAKER) (test sris=384) 6.4 K/ L 3.5-10.5 RED BLOOD CELL COUNT (BEAKER) (test enef=044) 3.99 M/ L 4.63-6.08 HEMOGLOBIN (BEAKER) (test lefn=423) 12.6 GM/DL 13.7-17.5 HEMATOCRIT (BEAKER) (test kxjw=108) 39.0 % 40.1-51.0 MEAN CORPUSCULAR VOLUME (BEAKER) (test idzz=145) 97.7 fL 79.0-92.2 MEAN CORPUSCULAR HEMOGLOBIN (BEAKER) (test 31.6 pg 25.7-32.2 ctgr=064) MEAN CORPUSCULAR HEMOGLOBIN CONC (BEAKER) (test 32.3 GM/DL 32.3-36.5 stux=168) RED CELL DISTRIBUTION WIDTH (BEAKER) (test 14.1 % 11.6-14.4 lteu=002) PLATELET COUNT (BEAKER) (test kmhq=080) 187 K/CU MM 150-450 MEAN PLATELET VOLUME (BEAKER) (test pocc=466) 9.3 fL 9.4-12.4 NUCLEATED RED BLOOD CELLS (BEAKER) (test 0 /100 WBC 0-0 nmkp=413) NEUTROPHILS RELATIVE PERCENT (BEAKER) (test 68 % cext=156) LYMPHOCYTES RELATIVE PERCENT (BEAKER) (test 19 % fccp=106) MONOCYTES RELATIVE PERCENT (BEAKER) (test 10 % twuw=731) EOSINOPHILS RELATIVE PERCENT (BEAKER) (test 2 % utca=465) BASOPHILS RELATIVE PERCENT (BEAKER) (test 1 % itya=914) NEUTROPHILS ABSOLUTE COUNT (BEAKER) (test 4.31 K/ L 1.78-5.38 idog=366) LYMPHOCYTES ABSOLUTE COUNT (BEAKER) (test 1.21 K/ L 1.32-3.57 ccmc=971) MONOCYTES ABSOLUTE COUNT (BEAKER) (test 0.65 K/ L 0.30-0.82 mxgi=362) EOSINOPHILS ABSOLUTE COUNT (BEAKER) (test 0.14 K/ L 0.04-0.54 irpt=124) BASOPHILS ABSOLUTE COUNT (BEAKER) (test 0.04 K/ L 0.01-0.08 zprb=821) IMMATURE GRANULOCYTES-RELATIVE PERCENT (BEAKER) 0 % 0-1 (test nqcy=4699) COMPREHENSIVE METABOLIC [id number] 06:44:00 Test Item Value Reference Range Comments TOTAL PROTEIN (BEAKER) 6.2 gm/dL 6.0-8.3 (test karm=768) ALBUMIN (BEAKER) (test 2.7 g/dL 3.5-5.0 fvsz=7152) ALKALINE PHOSPHATASE 195 U/L 40-150 (BEAKER) (test oofo=535) BILIRUBIN TOTAL (BEAKER) 0.7 mg/dL 0.2-1.2 (test kzdl=801) SODIUM (BEAKER) (test 138 meq/L 136-145 vvlr=020) POTASSIUM (BEAKER) (test 3.6 meq/L 3.5-5.1 ptov=913) CHLORIDE (BEAKER) (test 102 meq/L 98-107 nvgz=035) CO2 (BEAKER) (test 28 meq/L 22-29 jidr=384) BLOOD UREA NITROGEN 2 mg/dL 7-21 (BEAKER) (test nqrg=352) CREATININE (BEAKER) (test 0.52 mg/dL 0.57-1.25 burv=365) GLUCOSE RANDOM (BEAKER) 103 mg/dL 70-105 (test irlf=950) CALCIUM (BEAKER) (test 8.5 mg/dL 8.4-10.2 olkp=618) AST (SGOT) (BEAKER) (test 67 U/L 5-34 jnvm=593) ALT (SGPT) (BEAKER) (test 31 U/L 6-55 phkt=412) EGFR (BEAKER) (test 184 mL/min/1.73 sq ESTIMATED GFR IS NOT dson=0087) m ACCURATE CREATININE CLEARANCE IN PREDICTING GLOMERULAR FILTRATION RATE. ESTIMATED GFR IS NOT APPLICABLE FOR DIALYSIS PATIENTS. CBC W/PLT COUNT & AUTO [id number] 06:09:00 Test Item Value Reference Range Comments WHITE BLOOD CELL COUNT (BEAKER) (test hddp=236) 4.0 K/ L 3.5-10.5 RED BLOOD CELL COUNT (BEAKER) (test jdth=881) 3.23 M/ L 4.63-6.08 HEMOGLOBIN (BEAKER) (test ifpf=261) 10.6 GM/DL 13.7-17.5 HEMATOCRIT (BEAKER) (test plmv=399) 33.2 % 40.1-51.0 MEAN CORPUSCULAR VOLUME (BEAKER) (test koap=651) 102.8 fL 79.0-92.2 MEAN CORPUSCULAR HEMOGLOBIN (BEAKER) (test 32.8 pg 25.7-32.2 opce=109) MEAN CORPUSCULAR HEMOGLOBIN CONC (BEAKER) (test 31.9 GM/DL 32.3-36.5 nwjf=886) RED CELL DISTRIBUTION WIDTH (BEAKER) (test 15.5 % 11.6-14.4 quba=350) PLATELET COUNT (BEAKER) (test xhox=248) 226 K/CU MM 150-450 MEAN PLATELET VOLUME (BEAKER) (test yjjz=067) 10.4 fL 9.4-12.4 NUCLEATED RED BLOOD CELLS (BEAKER) (test 0 /100 WBC 0-0 hflk=554) NEUTROPHILS RELATIVE PERCENT (BEAKER) (test 54 % dgsv=431) LYMPHOCYTES RELATIVE PERCENT (BEAKER) (test 29 % xfmx=793) MONOCYTES RELATIVE PERCENT (BEAKER) (test 9 % whni=527) EOSINOPHILS RELATIVE PERCENT (BEAKER) (test 6 % jiow=114) BASOPHILS RELATIVE PERCENT (BEAKER) (test 1 % ysef=226) NEUTROPHILS ABSOLUTE COUNT (BEAKER) (test 2.17 K/ L 1.78-5.38 ljxs=691) LYMPHOCYTES ABSOLUTE COUNT (BEAKER) (test 1.18 K/ L 1.32-3.57 koox=187) MONOCYTES ABSOLUTE COUNT (BEAKER) (test 0.37 K/ L 0.30-0.82 hfom=609) EOSINOPHILS ABSOLUTE COUNT (BEAKER) (test 0.25 K/ L 0.04-0.54 rbtr=332) BASOPHILS ABSOLUTE COUNT (BEAKER) (test 0.04 K/ L 0.01-0.08 ccvt=645) IMMATURE GRANULOCYTES-RELATIVE PERCENT (BEAKER) 0 % 0-1 (test oaxn=3959) COMPREHENSIVE METABOLIC [id number] 07:17:00 Test Item Value Reference Range Comments TOTAL PROTEIN (BEAKER) 7.3 gm/dL 6.0-8.3 (test yzey=521) ALBUMIN (BEAKER) (test 3.2 g/dL 3.5-5.0 mamg=7375) ALKALINE PHOSPHATASE 235 U/L 40-150 (BEAKER) (test zewr=387) BILIRUBIN TOTAL (BEAKER) 0.9 mg/dL 0.2-1.2 (test snrn=119) SODIUM (BEAKER) (test 135 meq/L 136-145 cmoy=253) POTASSIUM (BEAKER) (test 3.6 meq/L 3.5-5.1 mznt=471) CHLORIDE (BEAKER) (test 101 meq/L 98-107 yhnl=692) CO2 (BEAKER) (test 29 meq/L 22-29 zhai=708) BLOOD UREA NITROGEN < mg/dL 7-21 (BEAKER) (test gzmf=261) CREATININE (BEAKER) (test 0.56 mg/dL 0.57-1.25 wouv=561) GLUCOSE RANDOM (BEAKER) 87 mg/dL 70-105 (test wlsa=647) CALCIUM (BEAKER) (test 8.6 mg/dL 8.4-10.2 wsoa=489) AST (SGOT) (BEAKER) (test 96 U/L 5-34 jyty=735) ALT (SGPT) (BEAKER) (test 40 U/L 6-55 pzgm=285) EGFR (BEAKER) (test 169 mL/min/1.73 sq ESTIMATED GFR IS NOT xkyq=9058) m ACCURATE CREATININE CLEARANCE IN PREDICTING GLOMERULAR FILTRATION RATE. ESTIMATED GFR IS NOT APPLICABLE FOR DIALYSIS PATIENTS. CBC W/PLT COUNT & AUTO [id number] 06:05:00 Test Item Value Reference Range Comments WHITE BLOOD CELL COUNT (BEAKER) (test fglt=681) 5.1 K/ L 3.5-10.5 RED BLOOD CELL COUNT (BEAKER) (test mknz=439) 3.60 M/ L 4.63-6.08 HEMOGLOBIN (BEAKER) (test blyt=570) 11.7 GM/DL 13.7-17.5 HEMATOCRIT (BEAKER) (test bbzm=295) 37.6 % 40.1-51.0 MEAN CORPUSCULAR VOLUME (BEAKER) (test qzfv=805) 104.4 fL 79.0-92.2 MEAN CORPUSCULAR HEMOGLOBIN (BEAKER) (test 32.5 pg 25.7-32.2 ebsh=372) MEAN CORPUSCULAR HEMOGLOBIN CONC (BEAKER) (test 31.1 GM/DL 32.3-36.5 wydi=951) RED CELL DISTRIBUTION WIDTH (BEAKER) (test 15.5 % 11.6-14.4 vpio=437) PLATELET COUNT (BEAKER) (test klvm=007) 250 K/CU MM 150-450 MEAN PLATELET VOLUME (BEAKER) (test ydar=063) 10.1 fL 9.4-12.4 NUCLEATED RED BLOOD CELLS (BEAKER) (test 0 /100 WBC 0-0 eack=198) NEUTROPHILS RELATIVE PERCENT (BEAKER) (test 61 % jgtm=999) LYMPHOCYTES RELATIVE PERCENT (BEAKER) (test 25 % yobt=321) MONOCYTES RELATIVE PERCENT (BEAKER) (test 8 % ojgx=036) EOSINOPHILS RELATIVE PERCENT (BEAKER) (test 5 % iipw=234) BASOPHILS RELATIVE PERCENT (BEAKER) (test 1 % gyog=647) NEUTROPHILS ABSOLUTE COUNT (BEAKER) (test 3.09 K/ L 1.78-5.38 lgex=118) LYMPHOCYTES ABSOLUTE COUNT (BEAKER) (test 1.28 K/ L 1.32-3.57 kufz=096) MONOCYTES ABSOLUTE COUNT (BEAKER) (test 0.39 K/ L 0.30-0.82 fsnn=879) EOSINOPHILS ABSOLUTE COUNT (BEAKER) (test 0.25 K/ L 0.04-0.54 elil=980) BASOPHILS ABSOLUTE COUNT (BEAKER) (test 0.05 K/ L 0.01-0.08 xdjt=724) IMMATURE GRANULOCYTES-RELATIVE PERCENT (BEAKER) 0 % 0-1 (test zkmn=5995) [id number] 07:51:00 Test Item Value Reference Range Comments MAGNESIUM (BEAKER) (test eozt=505) 1.7 mg/dL 1.6-2.6 COMPREHENSIVE METABOLIC [id number] 06:19:00 Test Item Value Reference Range Comments TOTAL PROTEIN (BEAKER) 6.1 gm/dL 6.0-8.3 (test lezd=786) ALBUMIN (BEAKER) (test 2.7 g/dL 3.5-5.0 pemq=6439) ALKALINE PHOSPHATASE 214 U/L 40-150 (BEAKER) (test sqyf=250) BILIRUBIN TOTAL (BEAKER) 0.9 mg/dL 0.2-1.2 (test bttb=806) SODIUM (BEAKER) (test 139 meq/L 136-145 hshq=502) POTASSIUM (BEAKER) (test 4.2 meq/L 3.5-5.1 xjsx=295) CHLORIDE (BEAKER) (test 110 meq/L 98-107 neye=748) CO2 (BEAKER) (test 24 meq/L 22-29 kcze=818) BLOOD UREA NITROGEN < mg/dL 7-21 (BEAKER) (test jcgt=733) CREATININE (BEAKER) (test 0.50 mg/dL 0.57-1.25 bzrj=023) GLUCOSE RANDOM (BEAKER) 77 mg/dL 70-105 (test meky=363) CALCIUM (BEAKER) (test 7.7 mg/dL 8.4-10.2 jzhv=316) AST (SGOT) (BEAKER) (test 96 U/L 5-34 ihfd=214) ALT (SGPT) (BEAKER) (test 37 U/L 6-55 fvje=138) EGFR (BEAKER) (test 193 mL/min/1.73 sq ESTIMATED GFR IS NOT zfmb=5046) m ACCURATE CREATININE CLEARANCE IN PREDICTING GLOMERULAR FILTRATION RATE. ESTIMATED GFR IS NOT APPLICABLE FOR DIALYSIS PATIENTS. CBC W/PLT COUNT & AUTO [id number] 05:15:00 Test Item Value Reference Range Comments WHITE BLOOD CELL COUNT (BEAKER) (test erif=943) 4.8 K/ L 3.5-10.5 RED BLOOD CELL COUNT (BEAKER) (test bbll=245) 3.25 M/ L 4.63-6.08 HEMOGLOBIN (BEAKER) (test cqtk=366) 10.7 GM/DL 13.7-17.5 HEMATOCRIT (BEAKER) (test kznh=903) 34.0 % 40.1-51.0 MEAN CORPUSCULAR VOLUME (BEAKER) (test aese=503) 104.6 fL 79.0-92.2 MEAN CORPUSCULAR HEMOGLOBIN (BEAKER) (test 32.9 pg 25.7-32.2 lxtw=775) MEAN CORPUSCULAR HEMOGLOBIN CONC (BEAKER) (test 31.5 GM/DL 32.3-36.5 ljop=385) RED CELL DISTRIBUTION WIDTH (BEAKER) (test 15.5 % 11.6-14.4 gjxw=445) PLATELET COUNT (BEAKER) (test lrhw=956) 219 K/CU MM 150-450 MEAN PLATELET VOLUME (BEAKER) (test ewvw=585) 10.2 fL 9.4-12.4 NUCLEATED RED BLOOD CELLS (BEAKER) (test 0 /100 WBC 0-0 ctwt=614) NEUTROPHILS RELATIVE PERCENT (BEAKER) (test 56 % pvte=315) LYMPHOCYTES RELATIVE PERCENT (BEAKER) (test 29 % xwpc=906) MONOCYTES RELATIVE PERCENT (BEAKER) (test 8 % gftu=836) EOSINOPHILS RELATIVE PERCENT (BEAKER) (test 5 % qjwx=255) BASOPHILS RELATIVE PERCENT (BEAKER) (test 1 % sxgq=562) NEUTROPHILS ABSOLUTE COUNT (BEAKER) (test 2.69 K/ L 1.78-5.38 aeja=544) LYMPHOCYTES ABSOLUTE COUNT (BEAKER) (test 1.40 K/ L 1.32-3.57 jzpd=305) MONOCYTES ABSOLUTE COUNT (BEAKER) (test 0.37 K/ L 0.30-0.82 sbgr=673) EOSINOPHILS ABSOLUTE COUNT (BEAKER) (test 0.25 K/ L 0.04-0.54 nien=675) BASOPHILS ABSOLUTE COUNT (BEAKER) (test 0.05 K/ L 0.01-0.08 pwia=159) IMMATURE GRANULOCYTES-RELATIVE PERCENT (BEAKER) 0 % 0-1 (test xtbt=1612) COMPREHENSIVE METABOLIC [id number] 09:35:00 Test Item Value Reference Range Comments TOTAL PROTEIN (BEAKER) 6.4 gm/dL 6.0-8.3 Specimen slightly (test ueoc=978) hemolyzed ALBUMIN (BEAKER) (test 2.8 g/dL 3.5-5.0 Specimen slightly stdm=3687) hemolyzed ALKALINE PHOSPHATASE 214 U/L 40-150 (BEAKER) (test bvse=550) BILIRUBIN TOTAL (BEAKER) 1.0 mg/dL 0.2-1.2 Specimen slightly (test xcbt=152) hemolyzed SODIUM (BEAKER) (test 136 meq/L 136-145 gggj=944) POTASSIUM (BEAKER) (test 4.2 meq/L 3.5-5.1 Specimen slightly uqef=175) hemolyzed CHLORIDE (BEAKER) (test 107 meq/L 98-107 gvva=864) CO2 (BEAKER) (test 23 meq/L 22-29 koxp=062) BLOOD UREA NITROGEN 2 mg/dL 7-21 (BEAKER) (test fuih=941) CREATININE (BEAKER) (test 0.54 mg/dL 0.57-1.25 Specimen slightly bovv=779) hemolyzed GLUCOSE RANDOM (BEAKER) 89 mg/dL 70-105 (test juiy=804) CALCIUM (BEAKER) (test 7.6 mg/dL 8.4-10.2 nqcx=872) AST (SGOT) (BEAKER) (test 101 U/L 5-34 Specimen slightly oxbf=378) hemolyzed ALT (SGPT) (BEAKER) (test 41 U/L 6-55 Specimen slightly dvua=196) hemolyzed EGFR (BEAKER) (test 176 mL/min/1.73 sq ESTIMATED GFR IS NOT ltuc=6852) m ACCURATE CREATININE CLEARANCE IN PREDICTING GLOMERULAR FILTRATION RATE. ESTIMATED GFR IS NOT APPLICABLE FOR DIALYSIS PATIENTS. [id number] 09:27:00 Test Item Value Reference Range Comments MAGNESIUM (BEAKER) (test 1.3 mg/dL 1.6-2.6 Specimen slightly hemolyzed ppku=649) CBC W/PLT COUNT & AUTO [id number] 09:04:00 Test Item Value Reference Range Comments WHITE BLOOD CELL COUNT (BEAKER) (test zyhh=736) 5.7 K/ L 3.5-10.5 RED BLOOD CELL COUNT (BEAKER) (test ezpi=531) 3.18 M/ L 4.63-6.08 HEMOGLOBIN (BEAKER) (test zvyj=773) 10.4 GM/DL 13.7-17.5 HEMATOCRIT (BEAKER) (test rmrc=860) 33.1 % 40.1-51.0 MEAN CORPUSCULAR VOLUME (BEAKER) (test wfxf=908) 104.1 fL 79.0-92.2 MEAN CORPUSCULAR HEMOGLOBIN (BEAKER) (test 32.7 pg 25.7-32.2 lzfw=670) MEAN CORPUSCULAR HEMOGLOBIN CONC (BEAKER) (test 31.4 GM/DL 32.3-36.5 oqgp=786) RED CELL DISTRIBUTION WIDTH (BEAKER) (test 15.9 % 11.6-14.4 pyxx=414) PLATELET COUNT (BEAKER) (test qdjh=802) 223 K/CU MM 150-450 MEAN PLATELET VOLUME (BEAKER) (test pzra=337) 10.4 fL 9.4-12.4 NUCLEATED RED BLOOD CELLS (BEAKER) (test 0 /100 WBC 0-0 qlvb=589) NEUTROPHILS RELATIVE PERCENT (BEAKER) (test 58 % onti=149) LYMPHOCYTES RELATIVE PERCENT (BEAKER) (test 25 % bkal=936) MONOCYTES RELATIVE PERCENT (BEAKER) (test 11 % ttfs=531) EOSINOPHILS RELATIVE PERCENT (BEAKER) (test 5 % jiuz=596) BASOPHILS RELATIVE PERCENT (BEAKER) (test 1 % kqqu=026) NEUTROPHILS ABSOLUTE COUNT (BEAKER) (test 3.27 K/ L 1.78-5.38 ufdn=853) LYMPHOCYTES ABSOLUTE COUNT (BEAKER) (test 1.40 K/ L 1.32-3.57 fvcf=423) MONOCYTES ABSOLUTE COUNT (BEAKER) (test 0.61 K/ L 0.30-0.82 ivmg=443) EOSINOPHILS ABSOLUTE COUNT (BEAKER) (test 0.30 K/ L 0.04-0.54 fdzx=609) BASOPHILS ABSOLUTE COUNT (BEAKER) (test 0.07 K/ L 0.01-0.08 xxig=245) IMMATURE GRANULOCYTES-RELATIVE PERCENT (BEAKER) 0 % 0-1 (test afjc=7541) COMPREHENSIVE METABOLIC [id number] 05:26:00 Test Item Value Reference Range Comments TOTAL PROTEIN (BEAKER) 5.7 gm/dL 6.0-8.3 (test ktns=653) ALBUMIN (BEAKER) (test 2.6 g/dL 3.5-5.0 cjcn=1653) ALKALINE PHOSPHATASE 204 U/L 40-150 (BEAKER) (test dcgg=899) BILIRUBIN TOTAL (BEAKER) 1.0 mg/dL 0.2-1.2 (test jzbp=989) SODIUM (BEAKER) (test 138 meq/L 136-145 vqcx=710) POTASSIUM (BEAKER) (test 3.3 meq/L 3.5-5.1 icqg=378) CHLORIDE (BEAKER) (test 106 meq/L 98-107 uffj=229) CO2 (BEAKER) (test 24 meq/L 22-29 tjtl=410) BLOOD UREA NITROGEN 5 mg/dL 7-21 (BEAKER) (test xlza=288) CREATININE (BEAKER) (test 0.53 mg/dL 0.57-1.25 txep=559) GLUCOSE RANDOM (BEAKER) 85 mg/dL 70-105 (test vhie=354) CALCIUM (BEAKER) (test 7.3 mg/dL 8.4-10.2 rafj=995) AST (SGOT) (BEAKER) (test 108 U/L 5-34 chnc=123) ALT (SGPT) (BEAKER) (test 46 U/L 6-55 publ=887) EGFR (BEAKER) (test 180 mL/min/1.73 sq ESTIMATED GFR IS NOT huds=6561) m ACCURATE CREATININE CLEARANCE IN PREDICTING GLOMERULAR FILTRATION RATE. ESTIMATED GFR IS NOT APPLICABLE FOR DIALYSIS PATIENTS. PROTHROMBIN TIME/[id number] 05:08:00 Test Item Value Reference Range Comments PROTIME (BEAKER) (test ajii=971) 17.0 seconds 11.9-14.2 INR (BEAKER) (test jwoj=781) 1.5 <=5.9 Effective 12/11/2018: PT Reference Range ChangeNew: 11.9-14.2 Previous: 11.7- 14.7RECOMMENDED COUMADIN/WARFARIN INR THERAPY RANGESSTANDARD DOSE: 2.0-3.0 Includes: PROPHYLAXIS for venous thrombosis, systemic embolization; TREATMENT for venous thrombosis and/or pulmonary embolus.HIGH RISK: Target INR is2.5-3.5 for patients wiht mechanical heart valves.CBC W/PLT COUNT & AUTO [id number] 04:59:00 Test Item Value Reference Range Comments WHITE BLOOD CELL COUNT (BEAKER) (test cgaz=001) 6.1 K/ L 3.5-10.5 RED BLOOD CELL COUNT (BEAKER) (test qvut=866) 2.96 M/ L 4.63-6.08 HEMOGLOBIN (BEAKER) (test lnpv=913) 9.7 GM/DL 13.7-17.5 HEMATOCRIT (BEAKER) (test fpws=567) 30.5 % 40.1-51.0 MEAN CORPUSCULAR VOLUME (BEAKER) (test zqya=756) 103.0 fL 79.0-92.2 MEAN CORPUSCULAR HEMOGLOBIN (BEAKER) (test 32.8 pg 25.7-32.2 xrdu=676) MEAN CORPUSCULAR HEMOGLOBIN CONC (BEAKER) (test 31.8 GM/DL 32.3-36.5 ddme=164) RED CELL DISTRIBUTION WIDTH (BEAKER) (test 16.0 % 11.6-14.4 qrrr=795) PLATELET COUNT (BEAKER) (test ctak=035) 221 K/CU MM 150-450 MEAN PLATELET VOLUME (BEAKER) (test otwo=132) 10.7 fL 9.4-12.4 NUCLEATED RED BLOOD CELLS (BEAKER) (test 0 /100 WBC 0-0 yhsc=819) NEUTROPHILS RELATIVE PERCENT (BEAKER) (test 62 % ghoq=388) LYMPHOCYTES RELATIVE PERCENT (BEAKER) (test 22 % ouan=448) MONOCYTES RELATIVE PERCENT (BEAKER) (test 11 % bpyg=525) EOSINOPHILS RELATIVE PERCENT (BEAKER) (test 3 % aktt=726) BASOPHILS RELATIVE PERCENT (BEAKER) (test 1 % oifn=932) NEUTROPHILS ABSOLUTE COUNT (BEAKER) (test 3.81 K/ L 1.78-5.38 knyj=249) LYMPHOCYTES ABSOLUTE COUNT (BEAKER) (test 1.32 K/ L 1.32-3.57 jzxx=030) MONOCYTES ABSOLUTE COUNT (BEAKER) (test 0.70 K/ L 0.30-0.82 wkqw=901) EOSINOPHILS ABSOLUTE COUNT (BEAKER) (test 0.21 K/ L 0.04-0.54 uszn=240) BASOPHILS ABSOLUTE COUNT (BEAKER) (test 0.07 K/ L 0.01-0.08 sqwh=961) IMMATURE GRANULOCYTES-RELATIVE PERCENT (BEAKER) 0 % 0-1 (test psul=4817) POCT-GLUCOSE [id number] 07:44:00 Test Item Value Reference Range Comments POC-GLUCOSE METER (BEAKER) 90 mg/dL 70-110 TESTED AT [facility] [address] [facility] [facility] (test drtg=7924) [employer] [address] COMPREHENSIVE METABOLIC [id number] 07:29:00 Test Item Value Reference Range Comments TOTAL PROTEIN (BEAKER) 5.7 gm/dL 6.0-8.3 (test doay=798) ALBUMIN (BEAKER) (test 2.5 g/dL 3.5-5.0 iiil=4245) ALKALINE PHOSPHATASE 411 U/L 40-150 (BEAKER) (test flxl=869) BILIRUBIN TOTAL (BEAKER) 1.7 mg/dL 0.2-1.2 (test kscc=127) SODIUM (BEAKER) (test 139 meq/L 136-145 ophq=133) POTASSIUM (BEAKER) (test 3.1 meq/L 3.5-5.1 olpe=315) CHLORIDE (BEAKER) (test 105 meq/L 98-107 sqaz=869) CO2 (BEAKER) (test 24 meq/L 22-29 ejle=867) BLOOD UREA NITROGEN 3 mg/dL 7-21 (BEAKER) (test uszo=043) CREATININE (BEAKER) (test 0.61 mg/dL 0.57-1.25 tqdb=069) GLUCOSE RANDOM (BEAKER) 95 mg/dL 70-105 (test vutj=812) CALCIUM (BEAKER) (test 6.8 mg/dL 8.4-10.2 nokj=498) AST (SGOT) (BEAKER) (test 173 U/L 5-34 vmku=540) ALT (SGPT) (BEAKER) (test 53 U/L 6-55 lkel=996) EGFR (BEAKER) (test 153 mL/min/1.73 sq ESTIMATED GFR IS NOT xtvr=6792) m ACCURATE CREATININE CLEARANCE IN PREDICTING GLOMERULAR FILTRATION RATE. ESTIMATED GFR IS NOT APPLICABLE FOR DIALYSIS PATIENTS. [id number] 07:28:00 Test Item Value Reference Range Comments PHOSPHORUS (BEAKER) (test iqfs=012) 2.4 mg/dL 2.3-4.7 [id number] 07:28:00 Test Item Value Reference Range Comments MAGNESIUM (BEAKER) (test kmiv=856) 1.8 mg/dL 1.6-2.6 HEPATIC FUNCTION [id number] 07:28:00 Test Item Value Reference Range Comments TOTAL PROTEIN (BEAKER) (test yutm=207) 5.7 gm/dL 6.0-8.3 ALBUMIN (BEAKER) (test ixqn=0756) 2.5 g/dL 3.5-5.0 BILIRUBIN TOTAL (BEAKER) (test leko=494) 1.7 mg/dL 0.2-1.2 BILIRUBIN DIRECT (BEAKER) (test umux=448) 1.3 mg/dL 0.1-0.5 ALKALINE PHOSPHATASE (BEAKER) (test kprd=085) 411 U/L 40-150 AST (SGOT) (BEAKER) (test nqfj=490) 173 U/L 5-34 ALT (SGPT) (BEAKER) (test hmfe=080) 53 U/L 6-55 [id number] 07:28:00 Test Item Value Reference Range Comments LIPASE (BEAKER) (test vcmm=395) 231 U/L 8-78 CBC W/PLT COUNT & AUTO [id number] 07:10:00 Test Item Value Reference Range Comments WHITE BLOOD CELL COUNT (BEAKER) (test awwe=582) 4.5 K/ L 3.5-10.5 RED BLOOD CELL COUNT (BEAKER) (test igtq=109) 2.76 M/ L 4.63-6.08 HEMOGLOBIN (BEAKER) (test hhof=687) 9.2 GM/DL 13.7-17.5 HEMATOCRIT (BEAKER) (test aosp=557) 29.2 % 40.1-51.0 MEAN CORPUSCULAR VOLUME (BEAKER) (test tzle=454) 105.8 fL 79.0-92.2 MEAN CORPUSCULAR HEMOGLOBIN (BEAKER) (test 33.3 pg 25.7-32.2 qbml=778) MEAN CORPUSCULAR HEMOGLOBIN CONC (BEAKER) (test 31.5 GM/DL 32.3-36.5 cegv=369) RED CELL DISTRIBUTION WIDTH (BEAKER) (test 21.9 % 11.6-14.4 ottj=261) PLATELET COUNT (BEAKER) (test qyid=995) 150 K/CU MM 150-450 MEAN PLATELET VOLUME (BEAKER) (test jsll=115) 10.5 fL 9.4-12.4 NUCLEATED RED BLOOD CELLS (BEAKER) (test 0 /100 WBC 0-0 kqir=438) NEUTROPHILS RELATIVE PERCENT (BEAKER) (test 65 % gbig=474) LYMPHOCYTES RELATIVE PERCENT (BEAKER) (test 17 % umwq=272) MONOCYTES RELATIVE PERCENT (BEAKER) (test 13 % fiqg=143) EOSINOPHILS RELATIVE PERCENT (BEAKER) (test 2 % yano=116) BASOPHILS RELATIVE PERCENT (BEAKER) (test 1 % uoxb=497) NEUTROPHILS ABSOLUTE COUNT (BEAKER) (test 2.91 K/ L 1.78-5.38 xrgf=857) LYMPHOCYTES ABSOLUTE COUNT (BEAKER) (test 0.78 K/ L 1.32-3.57 lafq=394) MONOCYTES ABSOLUTE COUNT (BEAKER) (test 0.59 K/ L 0.30-0.82 czrv=776) EOSINOPHILS ABSOLUTE COUNT (BEAKER) (test 0.11 K/ L 0.04-0.54 axow=343) BASOPHILS ABSOLUTE COUNT (BEAKER) (test 0.05 K/ L 0.01-0.08 nyyn=124) IMMATURE GRANULOCYTES-RELATIVE PERCENT (BEAKER) 2 % 0-1 (test kppw=6246) COMPREHENSIVE METABOLIC [id number] 04:23:00 Test Item Value Reference Range Comments TOTAL PROTEIN (BEAKER) 5.5 gm/dL 6.0-8.3 (test gmxn=563) ALBUMIN (BEAKER) (test 2.5 g/dL 3.5-5.0 kodd=2705) ALKALINE PHOSPHATASE 453 U/L 40-150 (BEAKER) (test nwuh=989) BILIRUBIN TOTAL (BEAKER) 2.0 mg/dL 0.2-1.2 (test usgo=404) SODIUM (BEAKER) (test 138 meq/L 136-145 akwu=527) POTASSIUM (BEAKER) (test 3.2 meq/L 3.5-5.1 dtzc=693) CHLORIDE (BEAKER) (test 104 meq/L 98-107 ojai=333) CO2 (BEAKER) (test 26 meq/L 22-29 prjx=930) BLOOD UREA NITROGEN 3 mg/dL 7-21 (BEAKER) (test qzya=031) CREATININE (BEAKER) (test 0.51 mg/dL 0.57-1.25 qhou=353) GLUCOSE RANDOM (BEAKER) 104 mg/dL 70-105 (test yafy=922) CALCIUM (BEAKER) (test 7.0 mg/dL 8.4-10.2 umxo=207) AST (SGOT) (BEAKER) (test 166 U/L 5-34 hhmd=818) ALT (SGPT) (BEAKER) (test 52 U/L 6-55 jeyv=409) EGFR (BEAKER) (test 188 mL/min/1.73 sq ESTIMATED GFR IS NOT hzsb=3729) m ACCURATE CREATININE CLEARANCE IN PREDICTING GLOMERULAR FILTRATION RATE. ESTIMATED GFR IS NOT APPLICABLE FOR DIALYSIS PATIENTS. [id number] 04:21:00 Test Item Value Reference Range Comments PHOSPHORUS (BEAKER) (test onfl=103) 2.0 mg/dL 2.3-4.7 [id number] 04:21:00 Test Item Value Reference Range Comments MAGNESIUM (BEAKER) (test qige=737) 1.5 mg/dL 1.6-2.6 HEPATIC FUNCTION [id number] 04:21:00 Test Item Value Reference Range Comments TOTAL PROTEIN (BEAKER) (test expc=775) 5.5 gm/dL 6.0-8.3 ALBUMIN (BEAKER) (test lqvx=7946) 2.5 g/dL 3.5-5.0 BILIRUBIN TOTAL (BEAKER) (test yqtb=093) 2.0 mg/dL 0.2-1.2 BILIRUBIN DIRECT (BEAKER) (test vuiz=982) 1.5 mg/dL 0.1-0.5 ALKALINE PHOSPHATASE (BEAKER) (test rooq=864) 453 U/L 40-150 AST (SGOT) (BEAKER) (test hjfd=509) 166 U/L 5-34 ALT (SGPT) (BEAKER) (test ipdt=439) 52 U/L 6-55 [id number] 04:21:00 Test Item Value Reference Range Comments LIPASE (BEAKER) (test zuvu=832) 283 U/L 8-78 CBC W/PLT COUNT & AUTO [id number] 04:19:00 Test Item Value Reference Range Comments WHITE BLOOD CELL COUNT (BEAKER) (test witl=662) 4.6 K/ L 3.5-10.5 RED BLOOD CELL COUNT (BEAKER) (test sxwo=318) 2.82 M/ L 4.63-6.08 HEMOGLOBIN (BEAKER) (test yeyv=167) 9.4 GM/DL 13.7-17.5 HEMATOCRIT (BEAKER) (test dfbx=936) 28.9 % 40.1-51.0 MEAN CORPUSCULAR VOLUME (BEAKER) (test ffvp=049) 102.5 fL 79.0-92.2 MEAN CORPUSCULAR HEMOGLOBIN (BEAKER) (test 33.3 pg 25.7-32.2 dxfc=315) MEAN CORPUSCULAR HEMOGLOBIN CONC (BEAKER) (test 32.5 GM/DL 32.3-36.5 qvbl=696) RED CELL DISTRIBUTION WIDTH (BEAKER) (test 21.8 % 11.6-14.4 qzuw=276) PLATELET COUNT (BEAKER) (test zovc=020) 141 K/CU MM 150-450 MEAN PLATELET VOLUME (BEAKER) (test mxwv=819) 9.5 fL 9.4-12.4 NUCLEATED RED BLOOD CELLS (BEAKER) (test 0 /100 WBC 0-0 izlp=906) NEUTROPHILS RELATIVE PERCENT (BEAKER) (test 63 % lkrb=040) LYMPHOCYTES RELATIVE PERCENT (BEAKER) (test 22 % fnqr=747) MONOCYTES RELATIVE PERCENT (BEAKER) (test 10 % zzoc=967) EOSINOPHILS RELATIVE PERCENT (BEAKER) (test 3 % rqxv=054) BASOPHILS RELATIVE PERCENT (BEAKER) (test 1 % tryk=673) NEUTROPHILS ABSOLUTE COUNT (BEAKER) (test 2.86 K/ L 1.78-5.38 qlxy=480) LYMPHOCYTES ABSOLUTE COUNT (BEAKER) (test 1.02 K/ L 1.32-3.57 yfdg=406) MONOCYTES ABSOLUTE COUNT (BEAKER) (test 0.44 K/ L 0.30-0.82 uoaa=208) EOSINOPHILS ABSOLUTE COUNT (BEAKER) (test 0.12 K/ L 0.04-0.54 mnrk=006) BASOPHILS ABSOLUTE COUNT (BEAKER) (test 0.05 K/ L 0.01-0.08 ynne=684) IMMATURE GRANULOCYTES-RELATIVE PERCENT (BEAKER) 2 % 0-1 (test hwxx=3977) HEMOGLOBIN AND [id number] 03:57:00 Test Item Value Reference Range Comments HEMOGLOBIN (BEAKER) (test cydf=849) 9.4 GM/DL 13.7-17.5 HEMATOCRIT (BEAKER) (test gndx=533) 28.9 % 40.1-51.0 HEMOGLOBIN AND [id number] 11:59:00 Test Item Value Reference Range Comments HEMOGLOBIN (BEAKER) (test ngit=678) 8.4 GM/DL 13.7-17.5 HEMATOCRIT (BEAKER) (test jhla=185) 24.7 % 40.1-51.0 [id number] 09:15:00 Test Item Value Reference Range Comments LIPASE (BEAKER) (test qvhl=819) 214 U/L 8-78 HEPATIC FUNCTION [id number] 06:09:00 Test Item Value Reference Range Comments TOTAL PROTEIN (BEAKER) (test lawd=787) 5.1 gm/dL 6.0-8.3 ALBUMIN (BEAKER) (test ylaw=2574) 2.4 g/dL 3.5-5.0 BILIRUBIN TOTAL (BEAKER) (test livq=451) 2.0 mg/dL 0.2-1.2 BILIRUBIN DIRECT (BEAKER) (test ebgw=037) 1.4 mg/dL 0.1-0.5 ALKALINE PHOSPHATASE (BEAKER) (test xysq=247) 418 U/L 40-150 AST (SGOT) (BEAKER) (test lrut=082) 147 U/L 5-34 ALT (SGPT) (BEAKER) (test jahu=090) 51 U/L 6-55 CBC (HEMOGRAM ONLY)[id number] 05:04:00 Test Item Value Reference Range Comments WHITE BLOOD CELL COUNT (BEAKER) (test jctx=251) 4.8 K/ L 3.5-10.5 RED BLOOD CELL COUNT (BEAKER) (test frhg=568) 2.41 M/ L 4.63-6.08 HEMOGLOBIN (BEAKER) (test ehnx=239) 8.1 GM/DL 13.7-17.5 HEMATOCRIT (BEAKER) (test bhoq=281) 24.1 % 40.1-51.0 MEAN CORPUSCULAR VOLUME (BEAKER) (test bvdr=511) 100.0 fL 79.0-92.2 MEAN CORPUSCULAR HEMOGLOBIN (BEAKER) (test 33.6 pg 25.7-32.2 japr=126) MEAN CORPUSCULAR HEMOGLOBIN CONC (BEAKER) (test 33.6 GM/DL 32.3-36.5 ijrk=323) RED CELL DISTRIBUTION WIDTH (BEAKER) (test 22.4 % 11.6-14.4 zieo=191) PLATELET COUNT (BEAKER) (test wdmo=932) 135 K/CU MM 150-450 MEAN PLATELET VOLUME (BEAKER) (test uqyw=176) 10.0 fL 9.4-12.4 NUCLEATED RED BLOOD CELLS (BEAKER) (test 1 /100 WBC 0-0 tmbk=629) BASIC METABOLIC [id number] 02:50:00 Test Item Value Reference Range Comments SODIUM (BEAKER) (test 137 meq/L 136-145 ranl=117) POTASSIUM (BEAKER) (test 3.1 meq/L 3.5-5.1 qsxk=904) CHLORIDE (BEAKER) (test 104 meq/L 98-107 cgqc=681) CO2 (BEAKER) (test 24 meq/L 22-29 jmxk=942) BLOOD UREA NITROGEN 3 mg/dL 7-21 (BEAKER) (test equs=849) CREATININE (BEAKER) (test 0.50 mg/dL 0.57-1.25 wuef=823) GLUCOSE RANDOM (BEAKER) 124 mg/dL 70-105 (test cbga=041) CALCIUM (BEAKER) (test 6.5 mg/dL 8.4-10.2 kkzu=429) EGFR (BEAKER) (test 193 mL/min/1.73 sq m ESTIMATED GFR IS NOT knjc=2563) ACCURATE CREATININE CLEARANCE IN PREDICTING GLOMERULAR FILTRATION RATE. ESTIMATED GFR IS NOT APPLICABLE FOR DIALYSIS PATIENTS. [id number] 02:14:00 Test Item Value Reference Range Comments PHOSPHORUS (BEAKER) (test abfz=378) 2.6 mg/dL 2.3-4.7 [id number] 02:14:00 Test Item Value Reference Range Comments MAGNESIUM (BEAKER) (test ipbi=639) 1.9 mg/dL 1.6-2.6 HEMOGLOBIN AND [id number] 01:13:00 Test Item Value Reference Range Comments HEMOGLOBIN (BEAKER) (test ujcs=291) 8.1 GM/DL 13.7-17.5 HEMATOCRIT (BEAKER) (test znjs=148) 23.8 % 40.1-51.0 POCT-GLUCOSE [id number] 20:56:00 Test Item Value Reference Range Comments POC-GLUCOSE METER (BEAKER) 105 mg/dL 70-110 TESTED AT [facility] [address] (test jllk=3139) [employer] [address] COMPREHENSIVE METABOLIC [id number] 14:51:00 Test Item Value Reference Range Comments TOTAL PROTEIN (BEAKER) 6.0 gm/dL 6.0-8.3 (test zstq=725) ALBUMIN (BEAKER) (test 2.8 g/dL 3.5-5.0 hifc=0429) ALKALINE PHOSPHATASE 489 U/L 40-150 (BEAKER) (test vybi=373) BILIRUBIN TOTAL (BEAKER) 2.7 mg/dL 0.2-1.2 (test nenk=642) SODIUM (BEAKER) (test 141 meq/L 136-145 dayr=450) POTASSIUM (BEAKER) (test 2.6 meq/L 3.5-5.1 yhqa=760) CHLORIDE (BEAKER) (test 103 meq/L 98-107 furu=872) CO2 (BEAKER) (test 28 meq/L 22-29 sboe=560) BLOOD UREA NITROGEN 5 mg/dL 7-21 (BEAKER) (test soyq=037) CREATININE (BEAKER) (test 0.54 mg/dL 0.57-1.25 mqho=566) GLUCOSE RANDOM (BEAKER) 88 mg/dL 70-105 (test fzob=608) CALCIUM (BEAKER) (test 7.1 mg/dL 8.4-10.2 equb=702) AST (SGOT) (BEAKER) (test 168 U/L 5-34 ojpr=326) ALT (SGPT) (BEAKER) (test 61 U/L 6-55 neuh=552) EGFR (BEAKER) (test 176 mL/min/1.73 sq ESTIMATED GFR IS NOT mwvu=6372) m ACCURATE CREATININE CLEARANCE IN PREDICTING GLOMERULAR FILTRATION RATE. ESTIMATED GFR IS NOT APPLICABLE FOR DIALYSIS PATIENTS. Specimen slightly [id number] 14:51:00 Test Item Value Reference Range Comments PHOSPHORUS (BEAKER) (test jgtv=458) 0.9 mg/dL 2.3-4.7 [id number] 14:41:00 Test Item Value Reference Range Comments MAGNESIUM (BEAKER) (test ojpi=953) 1.3 mg/dL 1.6-2.6 [id number] 14:41:00 Test Item Value Reference Range Comments AMYLASE (BEAKER) (test dbox=612) 160 U/L 25-125 Specimen slightly ictericLACTATE DEHYDROGENASE (LDH)2019-02-12 14:41:00 Test Item Value Reference Range Comments LACTATE DEHYDROGENASE (BEAKER) (test thbo=035) 572 U/L 125-220 [id number] 14:41:00 Test Item Value Reference Range Comments LIPASE (BEAKER) (test zzzo=236) 562 U/L 8-78 Specimen slightly [id number] 14:39:00 Test Item Value Reference Range Comments ETHANOL (BEAKER) (test duox=105) < mg/dL <=10 [id number] 14:27:00 Test Item Value Reference Range Comments D-DIMER QUANTITATIVE (BEAKER) (test vqoj=182) 4.23 MG/L FEU <0.50 Intended Use: The [...] of thrombosis is within 95-100% range.LACTIC ACID, [id number] 14:25:00 Test Item Value Reference Range Comments LACTATE BLOOD VENOUS (2) (BEAKER) (test 1.5 mmol/L 0.5-2.2 wwpt=3470) [id number] 14:21:00 Test Item Value Reference Range Comments AMMONIA (BEAKER) (test jwcq=889) 50 mol/L 18-72 [id number] 14:17:00 Test Item Value Reference Range Comments PROTIME (BEAKER) (test joop=595) 17.8 seconds 11.9-14.2 INR (BEAKER) (test khaf=795) 1.6 <=5.9 PARTIAL THROMBOPLASTIN TIME (BEAKER) (test 34.9 seconds 22.5-36.0 bwla=529) Effective 12/11/2018: PT Reference Range ChangeNew: 11.9-14.2 Previous: 11.7- 14.7RECOMMENDED COUMADIN/WARFARIN INR THERAPY RANGESSTANDARD DOSE: 2.0-3.0 Includes: PROPHYLAXIS for venous thrombosis, systemic embolization; TREATMENT for venous thrombosis and/or pulmonary embolus.HIGH RISK: Target INR is2.5-3.5 for patients wiht mechanical heart valves.[id number] 14:17:00 Test Item Value Reference Range Comments FIBRINOGEN LEVEL (BEAKER) (test wjkp=131) 304 mg/dl 225-434 CBC (HEMOGRAM ONLY)2019-02-12 14:13:00 Test Item Value Reference Range Comments WHITE BLOOD CELL COUNT 5.0 K/ L 3.5-10.5 (BEAKER) (test dhdr=747) RED BLOOD CELL COUNT (BEAKER) 2.64 M/ L 4.63-6.08 (test ppos=229) HEMOGLOBIN (BEAKER) (test 9.0 GM/DL 13.7-17.5 aeyh=992) HEMATOCRIT (BEAKER) (test 27.0 % 40.1-51.0 yszd=806) MEAN CORPUSCULAR VOLUME 102.3 fL 79.0-92.2 (BEAKER) (test pbgl=673) MEAN CORPUSCULAR HEMOGLOBIN 34.1 pg 25.7-32.2 (BEAKER) (test zzny=735) MEAN CORPUSCULAR HEMOGLOBIN 33.3 GM/DL 32.3-36.5 CONC (BEAKER) (test egrw=776) RED CELL DISTRIBUTION WIDTH % 11.6-14.4 Unable to report due to (BEAKER) (test iopu=855) abnormal Platelet population distribution. PLATELET COUNT (BEAKER) (test 146 K/CU MM 150-450 hyif=284) MEAN PLATELET VOLUME (BEAKER) 10.0 fL 9.4-12.4 (test tpnc=646) NUCLEATED RED BLOOD CELLS 1 /100 WBC 0-0 (BEAKER) (test vumn=590) CBC W/PLT COUNT & AUTO [id number] 05:36:00 Test Item Value Reference Range Comments WHITE BLOOD CELL COUNT (BEAKER) (test dtgu=997) 3.1 K/ L 3.5-10.5 RED BLOOD CELL COUNT (BEAKER) (test qeqx=427) 3.39 M/ L 4.63-6.08 HEMOGLOBIN (BEAKER) (test nert=573) 11.5 GM/DL 13.7-17.5 HEMATOCRIT (BEAKER) (test gbab=257) 33.7 % 40.1-51.0 MEAN CORPUSCULAR VOLUME (BEAKER) (test tcxk=409) 99.4 fL 79.0-92.2 MEAN CORPUSCULAR HEMOGLOBIN (BEAKER) (test 33.9 pg 25.7-32.2 usjd=856) MEAN CORPUSCULAR HEMOGLOBIN CONC (BEAKER) (test 34.1 GM/DL 32.3-36.5 pfes=023) RED CELL DISTRIBUTION WIDTH (BEAKER) (test 12.8 % 11.6-14.4 wach=428) PLATELET COUNT (BEAKER) (test vpjx=429) 130 K/CU MM 150-450 MEAN PLATELET VOLUME (BEAKER) (test wczt=941) 10.4 fL 9.4-12.4 NUCLEATED RED BLOOD CELLS (BEAKER) (test 0 /100 WBC 0-0 iujb=563) NEUTROPHILS RELATIVE PERCENT (BEAKER) (test 51 % dioj=434) LYMPHOCYTES RELATIVE PERCENT (BEAKER) (test 31 % acak=684) MONOCYTES RELATIVE PERCENT (BEAKER) (test 12 % dwsm=772) EOSINOPHILS RELATIVE PERCENT (BEAKER) (test 4 % krch=133) BASOPHILS RELATIVE PERCENT (BEAKER) (test 1 % uyqs=456) NEUTROPHILS ABSOLUTE COUNT (BEAKER) (test 1.61 K/ L 1.78-5.38 ltfg=152) LYMPHOCYTES ABSOLUTE COUNT (BEAKER) (test 0.98 K/ L 1.32-3.57 opga=276) MONOCYTES ABSOLUTE COUNT (BEAKER) (test 0.38 K/ L 0.30-0.82 bdxp=641) EOSINOPHILS ABSOLUTE COUNT (BEAKER) (test 0.11 K/ L 0.04-0.54 cltd=371) BASOPHILS ABSOLUTE COUNT (BEAKER) (test 0.04 K/ L 0.01-0.08 cmtz=173) IMMATURE GRANULOCYTES-RELATIVE PERCENT (BEAKER) 1 % 0-1 (test mwil=2670) MR, ABDOMEN, [id number] 13:31:00FINAL REPORT MRCP, MRI of abdomen without [...] MDReport Verified Date/Time: 12/12/2018 13:31:00 Reading Location: [facility] B1 C013Y CT Body Reading Room COMPREHENSIVE METABOLIC [id number] 09:56:00 Test Item Value Reference Range Comments TOTAL PROTEIN (BEAKER) 5.5 gm/dL 6.0-8.3 (test jyxh=125) ALBUMIN (BEAKER) (test 3.1 g/dL 3.5-5.0 fcdv=1396) ALKALINE PHOSPHATASE 116 U/L 40-150 (BEAKER) (test nvps=744) BILIRUBIN TOTAL (BEAKER) 1.9 mg/dL 0.2-1.2 (test othq=189) SODIUM (BEAKER) (test 139 meq/L 136-145 cazt=619) POTASSIUM (BEAKER) (test 3.0 meq/L 3.5-5.1 skiw=998) CHLORIDE (BEAKER) (test 107 meq/L 98-107 szyk=135) CO2 (BEAKER) (test 23 meq/L 22-29 jpuv=679) BLOOD UREA NITROGEN 4 mg/dL 7-21 (BEAKER) (test bsvr=947) CREATININE (BEAKER) (test 0.56 mg/dL 0.57-1.25 gnwq=603) GLUCOSE RANDOM (BEAKER) 116 mg/dL 70-105 (test wvhd=607) CALCIUM (BEAKER) (test 7.4 mg/dL 8.4-10.2 ygtt=248) AST (SGOT) (BEAKER) (test 297 U/L 5-34 okii=016) ALT (SGPT) (BEAKER) (test 173 U/L 6-55 edgz=721) EGFR (BEAKER) (test 169 mL/min/1.73 sq ESTIMATED GFR IS NOT qwnw=4227) m ACCURATE CREATININE CLEARANCE IN PREDICTING GLOMERULAR FILTRATION RATE. ESTIMATED GFR IS NOT APPLICABLE FOR DIALYSIS PATIENTS. CBC W/PLT COUNT & AUTO [id number] 04:42:00 Test Item Value Reference Range Comments WHITE BLOOD CELL COUNT (BEAKER) (test oeht=411) 3.1 K/ L 3.5-10.5 RED BLOOD CELL COUNT (BEAKER) (test gokb=514) 3.09 M/ L 4.63-6.08 HEMOGLOBIN (BEAKER) (test hzea=212) 10.7 GM/DL 13.7-17.5 HEMATOCRIT (BEAKER) (test vuzi=035) 30.5 % 40.1-51.0 MEAN CORPUSCULAR VOLUME (BEAKER) (test vcon=924) 98.7 fL 79.0-92.2 MEAN CORPUSCULAR HEMOGLOBIN (BEAKER) (test 34.6 pg 25.7-32.2 qnfc=497) MEAN CORPUSCULAR HEMOGLOBIN CONC (BEAKER) (test 35.1 GM/DL 32.3-36.5 wiui=117) RED CELL DISTRIBUTION WIDTH (BEAKER) (test 12.4 % 11.6-14.4 sjcj=153) PLATELET COUNT (BEAKER) (test bzno=175) 99 K/CU MM 150-450 MEAN PLATELET VOLUME (BEAKER) (test nwhs=412) 11.0 fL 9.4-12.4 NUCLEATED RED BLOOD CELLS (BEAKER) (test 0 /100 WBC 0-0 pnyu=010) NEUTROPHILS RELATIVE PERCENT (BEAKER) (test 60 % kcnu=585) LYMPHOCYTES RELATIVE PERCENT (BEAKER) (test 26 % fvfi=002) MONOCYTES RELATIVE PERCENT (BEAKER) (test 11 % eswd=095) EOSINOPHILS RELATIVE PERCENT (BEAKER) (test 2 % vygb=616) BASOPHILS RELATIVE PERCENT (BEAKER) (test 1 % mtac=223) NEUTROPHILS ABSOLUTE COUNT (BEAKER) (test 1.84 K/ L 1.78-5.38 qgdr=823) LYMPHOCYTES ABSOLUTE COUNT (BEAKER) (test 0.81 K/ L 1.32-3.57 fkml=065) MONOCYTES ABSOLUTE COUNT (BEAKER) (test trme=405) 0.34 K/ L 0.30-0.82 EOSINOPHILS ABSOLUTE COUNT (BEAKER) (test 0.06 K/ L 0.04-0.54 nffv=741) BASOPHILS ABSOLUTE COUNT (BEAKER) (test jxpl=421) 0.03 K/ L 0.01-0.08 IMMATURE GRANULOCYTES-RELATIVE PERCENT (BEAKER) 0 % 0-1 (test jynl=3282) FL, ESOPH, SWALLOW FUNCTION, WITH CINE OR [id number] 12:02:00Reason for exam:->pneumomediastinum, rule out esophageal perforationFINAL [...] Verified Date/Time: 12/11/2018 12:02: 17 Reading Location: [address] Ortho Consult Reading Room BASI METABOLIC [id number] 07:31:00 Test Item Value Reference Range Comments SODIUM (BEAKER) (test 139 meq/L 136-145 hcrt=727) POTASSIUM (BEAKER) (test 3.4 meq/L 3.5-5.1 Specimen slightly deda=220) hemolyzed CHLORIDE (BEAKER) (test 103 meq/L 98-107 detl=855) CO2 (BEAKER) (test 20 meq/L 22-29 hhdg=905) BLOOD UREA NITROGEN 18 mg/dL 7-21 (BEAKER) (test czce=527) CREATININE (BEAKER) (test 0.73 mg/dL 0.57-1.25 Specimen slightly puob=888) hemolyzed GLUCOSE RANDOM (BEAKER) 67 mg/dL 70-105 (test hquh=941) CALCIUM (BEAKER) (test 8.6 mg/dL 8.4-10.2 vnbf=857) EGFR (BEAKER) (test 125 mL/min/1.73 sq m ESTIMATED GFR IS NOT ermr=8540) ACCURATE CREATININE CLEARANCE IN PREDICTING GLOMERULAR FILTRATION RATE. ESTIMATED GFR IS NOT APPLICABLE FOR DIALYSIS PATIENTS. CBC W/PLT COUNT & AUTO [id number] 07:12:00 Test Item Value Reference Range Comments WHITE BLOOD CELL COUNT (BEAKER) (test svnk=828) 4.6 K/ L 3.5-10.5 RED BLOOD CELL COUNT (BEAKER) (test syqy=650) 3.19 M/ L 4.63-6.08 HEMOGLOBIN (BEAKER) (test ykmj=567) 11.1 GM/DL 13.7-17.5 HEMATOCRIT (BEAKER) (test pwbm=364) 31.0 % 40.1-51.0 MEAN CORPUSCULAR VOLUME (BEAKER) (test mpny=393) 97.2 fL 79.0-92.2 MEAN CORPUSCULAR HEMOGLOBIN (BEAKER) (test 34.8 pg 25.7-32.2 oqqf=446) MEAN CORPUSCULAR HEMOGLOBIN CONC (BEAKER) (test 35.8 GM/DL 32.3-36.5 rand=141) RED CELL DISTRIBUTION WIDTH (BEAKER) (test 13.0 % 11.6-14.4 rqmj=024) PLATELET COUNT (BEAKER) (test ituj=837) 103 K/CU MM 150-450 MEAN PLATELET VOLUME (BEAKER) (test bshb=755) 11.0 fL 9.4-12.4 NUCLEATED RED BLOOD CELLS (BEAKER) (test 0 /100 WBC 0-0 wzcg=518) NEUTROPHILS RELATIVE PERCENT (BEAKER) (test 73 % anbl=955) LYMPHOCYTES RELATIVE PERCENT (BEAKER) (test 16 % spti=222) MONOCYTES RELATIVE PERCENT (BEAKER) (test 9 % jxty=638) EOSINOPHILS RELATIVE PERCENT (BEAKER) (test 1 % mizk=932) BASOPHILS RELATIVE PERCENT (BEAKER) (test 0 % bfnm=066) NEUTROPHILS ABSOLUTE COUNT (BEAKER) (test 3.36 K/ L 1.78-5.38 qbfw=007) LYMPHOCYTES ABSOLUTE COUNT (BEAKER) (test 0.75 K/ L 1.32-3.57 nsoe=050) MONOCYTES ABSOLUTE COUNT (BEAKER) (test 0.41 K/ L 0.30-0.82 ommx=412) EOSINOPHILS ABSOLUTE COUNT (BEAKER) (test 0.04 K/ L 0.04-0.54 cnre=004) BASOPHILS ABSOLUTE COUNT (BEAKER) (test 0.02 K/ L 0.01-0.08 aotb=471) IMMATURE GRANULOCYTES-RELATIVE PERCENT (BEAKER) 1 % 0-1 (test teqz=6625) RAD, CHEST, 1 VIEW, NON [id number] 20:13:00Reason for exam:-> pneumomediastinumShould this be performed [...] Verified Date /Time: 12/10/2018 20:13:39 Reading Location: [address] Reading Room [id number] 19:12:00 Test Item Value Reference Range Comments MAGNESIUM (BEAKER) (test 1.8 mg/dL 1.6-2.6 Specimen slightly hemolyzed sorz=331) COMPREHENSIVE METABOLIC [id number] 19:12:00 Test Item Value Reference Range Comments TOTAL PROTEIN (BEAKER) 6.3 gm/dL 6.0-8.3 Specimen slightly (test hnbg=334) hemolyzed ALBUMIN (BEAKER) (test 3.7 g/dL 3.5-5.0 Specimen slightly epys=7432) hemolyzed ALKALINE PHOSPHATASE 129 U/L 40-150 (BEAKER) (test rdpr=079) BILIRUBIN TOTAL (BEAKER) 2.9 mg/dL 0.2-1.2 Specimen slightly (test xhfp=409) hemolyzed SODIUM (BEAKER) (test 137 meq/L 136-145 vlnm=909) POTASSIUM (BEAKER) (test 2.7 meq/L 3.5-5.1 Specimen slightly omqj=531) hemolyzed CHLORIDE (BEAKER) (test 99 meq/L 98-107 zztw=644) CO2 (BEAKER) (test 23 meq/L 22-29 lwqz=484) BLOOD UREA NITROGEN 22 mg/dL 7-21 (BEAKER) (test zlxc=476) CREATININE (BEAKER) (test 1.28 mg/dL 0.57-1.25 Specimen slightly efwc=237) hemolyzed GLUCOSE RANDOM (BEAKER) 78 mg/dL 70-105 (test tnxi=898) CALCIUM (BEAKER) (test 8.5 mg/dL 8.4-10.2 djvd=854) AST (SGOT) (BEAKER) (test 502 U/L 5-34 Specimen slightly vyye=778) hemolyzed ALT (SGPT) (BEAKER) (test 225 U/L 6-55 Specimen slightly neop=611) hemolyzed EGFR (BEAKER) (test 65 mL/min/1.73 sq m ESTIMATED GFR IS NOT sqbn=8915) ACCURATE CREATININE CLEARANCE IN PREDICTING GLOMERULAR FILTRATION RATE. ESTIMATED GFR IS NOT APPLICABLE FOR DIALYSIS PATIENTS. Specimen slightly ictericPROTHROMBIN [id number] 18:53:00 Test Item Value Reference Range Comments PROTIME (BEAKER) (test ectw=719) 15.8 seconds 11.7-14.7 INR (BEAKER) (test vqua=112) 1.3 <=5.9 RECOMMENDED COUMADIN/WARFARIN INR THERAPY RANGESSTANDARD DOSE: 2.0 - 3.0 Includes: PROPHYLAXIS forvenous thrombosis, systemic embolization; TREATMENT for venous thrombosis and/or pulmonary embolus.HIGH RISK: Target INR is 2.5-3.5 for patients with mechanical heart valves.CBC W/PLT COUNT & AUTO [id number] 18:49:00 Test Item Value Reference Range Comments WHITE BLOOD CELL COUNT (BEAKER) (test iyoc=733) 6.0 K/ L 3.5-10.5 RED BLOOD CELL COUNT (BEAKER) (test hmwi=637) 3.44 M/ L 4.63-6.08 HEMOGLOBIN (BEAKER) (test ugwc=686) 11.6 GM/DL 13.7-17.5 HEMATOCRIT (BEAKER) (test bjos=080) 34.1 % 40.1-51.0 MEAN CORPUSCULAR VOLUME (BEAKER) (test guqb=653) 99.1 fL 79.0-92.2 MEAN CORPUSCULAR HEMOGLOBIN (BEAKER) (test 33.7 pg 25.7-32.2 eqvd=070) MEAN CORPUSCULAR HEMOGLOBIN CONC (BEAKER) (test 34.0 GM/DL 32.3-36.5 xyml=124) RED CELL DISTRIBUTION WIDTH (BEAKER) (test 13.1 % 11.6-14.4 vqiv=060) PLATELET COUNT (BEAKER) (test emep=834) 109 K/CU MM 150-450 MEAN PLATELET VOLUME (BEAKER) (test ayml=262) 11.0 fL 9.4-12.4 NUCLEATED RED BLOOD CELLS (BEAKER) (test 0 /100 WBC 0-0 cdyx=875) NEUTROPHILS RELATIVE PERCENT (BEAKER) (test 81 % oiur=885) LYMPHOCYTES RELATIVE PERCENT (BEAKER) (test 12 % xpaw=792) MONOCYTES RELATIVE PERCENT (BEAKER) (test 7 % ozey=928) EOSINOPHILS RELATIVE PERCENT (BEAKER) (test 0 % kdlw=240) BASOPHILS RELATIVE PERCENT (BEAKER) (test 0 % txcj=239) NEUTROPHILS ABSOLUTE COUNT (BEAKER) (test 4.84 K/ L 1.78-5.38 cbxq=156) LYMPHOCYTES ABSOLUTE COUNT (BEAKER) (test 0.72 K/ L 1.32-3.57 jjcg=332) MONOCYTES ABSOLUTE COUNT (BEAKER) (test 0.41 K/ L 0.30-0.82 dykd=490) EOSINOPHILS ABSOLUTE COUNT (BEAKER) (test 0.01 K/ L 0.04-0.54 bbxu=482) BASOPHILS ABSOLUTE COUNT (BEAKER) (test 0.02 K/ L 0.01-0.08 obph=547) IMMATURE GRANULOCYTES-RELATIVE PERCENT (BEAKER) 0 % 0-1 (test ojfy=2073) BLOOD [id number] 20:01:00 Test Item Value Reference Range Comments CULTURE (BEAKER) (test oczg=5097) No growth in 5 days BLOOD [id number] 20:01:00 Test Item Value Reference Range Comments CULTURE (BEAKER) (test lumd=9520) No growth in 5 days RAD, CHEST, 1 VIEW, NON [id number] 13:13:00Reason for exam:->evalute for pneumoniaShould this be performed at the bedside?->YesAddendum BeginsREPORT STATUS:A Addendum:Clinical diagnosis alcohol withdrawalsyndrome, electrolyte disturbances, elevated liver function tests, pneumonia, Signed: Marilu Sharpe MDReport Verified Date/Time: 11/01/2018 13:13: 23 Reading Location: [address] Consult Reading RoomAddendum EndsFINAL REPORT Chest [...] MDReport Verified Date/Time: 10/28 15:36:38 Reading Location: [facility] [id number] Consult Reading Room U/S, ABDOMINAL, WITH [id number] 10:43:00Reason for exam:->evaluate for portal hypertension, cirrhosis, [...] MDReport Verified Date/Time: 10/31/2018 10:43:58 Reading Location: [facility] P006J Ultrasound Reading Room COMPREHENSIVE METABOLIC [id number] 06:57:00 Test Item Value Reference Range Comments TOTAL PROTEIN (BEAKER) 6.3 gm/dL 6.0-8.3 (test qvxt=414) ALBUMIN (BEAKER) (test 3.4 g/dL 3.5-5.0 dphn=8187) ALKALINE PHOSPHATASE 165 U/L 40-150 (BEAKER) (test sokv=074) BILIRUBIN TOTAL (BEAKER) 0.6 mg/dL 0.2-1.2 (test qzfp=692) SODIUM (BEAKER) (test 140 meq/L 136-145 gdew=817) POTASSIUM (BEAKER) (test 3.6 meq/L 3.5-5.1 bqmm=949) CHLORIDE (BEAKER) (test 102 meq/L 98-107 jqur=196) CO2 (BEAKER) (test 29 meq/L 22-29 haze=374) BLOOD UREA NITROGEN 3 mg/dL 7-21 (BEAKER) (test dbks=905) CREATININE (BEAKER) (test 0.55 mg/dL 0.57-1.25 uhsr=005) GLUCOSE RANDOM (BEAKER) 89 mg/dL 70-105 (test yroq=828) CALCIUM (BEAKER) (test 9.2 mg/dL 8.4-10.2 ngud=790) AST (SGOT) (BEAKER) (test 184 U/L 5-34 yyud=435) ALT (SGPT) (BEAKER) (test 156 U/L 6-55 mmmw=932) EGFR (BEAKER) (test 173 mL/min/1.73 sq ESTIMATED GFR IS NOT uodd=6513) m ACCURATE CREATININE CLEARANCE IN PREDICTING GLOMERULAR FILTRATION RATE. ESTIMATED GFR IS NOT APPLICABLE FOR DIALYSIS PATIENTS. HEMOGLOBIN [id number] 09:30:00 Test Item Value Reference Range Comments HEMOGLOBIN A1C (BEAKER) (test zlap=769) 4.9 % 4.3-6.1 COMPREHENSIVE METABOLIC [id number] 05:17:00 Test Item Value Reference Range Comments TOTAL PROTEIN (BEAKER) 6.5 gm/dL 6.0-8.3 (test epuw=513) ALBUMIN (BEAKER) (test 3.6 g/dL 3.5-5.0 qtey=4183) ALKALINE PHOSPHATASE 170 U/L 40-150 (BEAKER) (test nfrl=870) BILIRUBIN TOTAL (BEAKER) 0.9 mg/dL 0.2-1.2 (test bhhb=550) SODIUM (BEAKER) (test 141 meq/L 136-145 ueaf=802) POTASSIUM (BEAKER) (test 3.5 meq/L 3.5-5.1 xwlw=535) CHLORIDE (BEAKER) (test 104 meq/L 98-107 bwvg=267) CO2 (BEAKER) (test 26 meq/L 22-29 taph=904) BLOOD UREA NITROGEN 4 mg/dL 7-21 (BEAKER) (test nvge=668) CREATININE (BEAKER) (test 0.55 mg/dL 0.57-1.25 yeeo=824) GLUCOSE RANDOM (BEAKER) 89 mg/dL 70-105 (test suca=627) CALCIUM (BEAKER) (test 9.3 mg/dL 8.4-10.2 swjb=074) AST (SGOT) (BEAKER) (test 167 U/L 5-34 iqbf=872) ALT (SGPT) (BEAKER) (test 156 U/L 6-55 onal=719) EGFR (BEAKER) (test 173 mL/min/1.73 sq ESTIMATED GFR IS NOT nhiw=3811) m ACCURATE CREATININE CLEARANCE IN PREDICTING GLOMERULAR FILTRATION RATE. ESTIMATED GFR IS NOT APPLICABLE FOR DIALYSIS PATIENTS. CBC W/PLT COUNT & AUTO [id number] 04:53:00 Test Item Value Reference Range Comments WHITE BLOOD CELL COUNT (BEAKER) (test xclr=317) 3.4 K/ L 3.5-10.5 RED BLOOD CELL COUNT (BEAKER) (test fmci=744) 3.45 M/ L 4.63-6.08 HEMOGLOBIN (BEAKER) (test xela=769) 11.8 GM/DL 13.7-17.5 HEMATOCRIT (BEAKER) (test ofbd=389) 34.4 % 40.1-51.0 MEAN CORPUSCULAR VOLUME (BEAKER) (test suhj=595) 99.7 fL 79.0-92.2 MEAN CORPUSCULAR HEMOGLOBIN (BEAKER) (test 34.2 pg 25.7-32.2 jznl=858) MEAN CORPUSCULAR HEMOGLOBIN CONC (BEAKER) (test 34.3 GM/DL 32.3-36.5 dvni=068) RED CELL DISTRIBUTION WIDTH (BEAKER) (test 12.2 % 11.6-14.4 hlfd=790) PLATELET COUNT (BEAKER) (test uwaj=956) 175 K/CU MM 150-450 MEAN PLATELET VOLUME (BEAKER) (test lwmr=450) 10.3 fL 9.4-12.4 NUCLEATED RED BLOOD CELLS (BEAKER) (test 0 /100 WBC 0-0 qrcb=384) NEUTROPHILS RELATIVE PERCENT (BEAKER) (test 55 % woub=581) LYMPHOCYTES RELATIVE PERCENT (BEAKER) (test 30 % aahl=957) MONOCYTES RELATIVE PERCENT (BEAKER) (test 11 % bgwy=538) EOSINOPHILS RELATIVE PERCENT (BEAKER) (test 3 % rthz=227) BASOPHILS RELATIVE PERCENT (BEAKER) (test 1 % beqz=538) NEUTROPHILS ABSOLUTE COUNT (BEAKER) (test 1.89 K/ L 1.78-5.38 qpoc=143) LYMPHOCYTES ABSOLUTE COUNT (BEAKER) (test 1.03 K/ L 1.32-3.57 pkdp=825) MONOCYTES ABSOLUTE COUNT (BEAKER) (test 0.39 K/ L 0.30-0.82 zruh=954) EOSINOPHILS ABSOLUTE COUNT (BEAKER) (test 0.09 K/ L 0.04-0.54 ufiq=801) BASOPHILS ABSOLUTE COUNT (BEAKER) (test 0.03 K/ L 0.01-0.08 iyat=931) IMMATURE GRANULOCYTES-RELATIVE PERCENT (BEAKER) 0 % 0-1 (test aboz=3456) LIPID [id number] 17:30:00 Test Item Value Reference Range Comments TRIGLYCERIDES (BEAKER) (test hldk=427) 90 mg/dL CHOLESTEROL (BEAKER) (test rtdt=047) 140 mg/dL HDL CHOLESTEROL (BEAKER) (test esei=896) 37 mg/dL LDL CHOLESTEROL CALCULATED (BEAKER) (test 85 mg/dL sbep=441) Triglyceride Reference Range: Low Risk <150 Borderline 150- 199 High Risk 200-499 Very High Risk >=500Cholesterol Reference Range: Low Risk <200 Borderline 200-239 High Risk > 240HDL Cholesterol Reference Range: Low Risk >=60 High Risk <40LDL Cholesterol Reference Range: Optimal <100 Near Optimal 100-129 Borderline 130-159 High 160-189 Very High >=190HEPATITIS C PCR, [id number] 14:57:00 Test Item Value Reference Range Comments HCV RESULT COMPONENT (BEAKER) HCV RNA not detected HCV RNA not detected (test kztl=6478) This test uses a Real-Time Polymerase Chain Reaction (RT-PCR) methodology and was performed using MAR[employer] Ampliprep/MARIANO TaqMan HCV test kit version 2.0 ( [employer]).Reportable range for this assay is 15 - 100,000, 000 IU per mL (1.18 - 8.00 Log IU/mL).RAD, ABDOMEN/KUB, 1 VIEW [id number] 14: 17:00Reason for exam:->abd distensionFINAL REPORT TECHNIQUE: Supine radiographs of the abdomen dated 10/29/2018. HISTORY: Abdominal distention. COMPARISON: None IMPRESSION:No air-filled, dilated loops of bowel to suggest obstruction. No free intraperitoneal air. No abnormal soft tissue mass or calcification. Signed:Nancy Concepcioneport Verified Date/ Time: 10/29/2018 14:17:17 Reading Location: [facility] Radiology Reading Room [id number] 13:28:00 Test Item Value Reference Range Comments RPR SCREEN (BEAKER) (test cswp=649) Nonreactive Nonreactive [id number] 05:12:00 Test Item Value Reference Range Comments PHOSPHORUS (BEAKER) (test tjrz=181) 2.5 mg/dL 2.3-4.7 COMPREHENSIVE METABOLIC [id number] 05:12:00 Test Item Value Reference Range Comments TOTAL PROTEIN (BEAKER) 6.9 gm/dL 6.0-8.3 (test icrf=653) ALBUMIN (BEAKER) (test 3.9 g/dL 3.5-5.0 oxyg=2398) ALKALINE PHOSPHATASE 200 U/L 40-150 (BEAKER) (test ltqc=296) BILIRUBIN TOTAL (BEAKER) 1.2 mg/dL 0.2-1.2 (test bxwb=047) SODIUM (BEAKER) (test 137 meq/L 136-145 ggmr=871) POTASSIUM (BEAKER) (test 3.3 meq/L 3.5-5.1 orfp=751) CHLORIDE (BEAKER) (test 97 meq/L 98-107 amna=942) CO2 (BEAKER) (test 27 meq/L 22-29 plln=175) BLOOD UREA NITROGEN 3 mg/dL 7-21 (BEAKER) (test yfco=799) CREATININE (BEAKER) (test 0.57 mg/dL 0.57-1.25 tssw=834) GLUCOSE RANDOM (BEAKER) 108 mg/dL 70-105 (test wroe=003) CALCIUM (BEAKER) (test 9.4 mg/dL 8.4-10.2 mmew=637) AST (SGOT) (BEAKER) (test 263 U/L 5-34 xiwr=803) ALT (SGPT) (BEAKER) (test 215 U/L 6-55 trmz=266) EGFR (BEAKER) (test 166 mL/min/1.73 sq ESTIMATED GFR IS NOT ztoq=4760) m ACCURATE CREATININE CLEARANCE IN PREDICTING GLOMERULAR FILTRATION RATE. ESTIMATED GFR IS NOT APPLICABLE FOR DIALYSIS PATIENTS. PROTHROMBIN [id number] 04:53:00 Test Item Value Reference Range Comments PROTIME (BEAKER) (test dqhd=099) 16.0 seconds 11.7-14.7 INR (BEAKER) (test vnjm=836) 1.3 <=5.9 RECOMMENDED COUMADIN/WARFARIN INR THERAPY RANGESSTANDARD DOSE: 2.0 - 3.0 Includes: PROPHYLAXIS forvenous thrombosis, systemic embolization; TREATMENT for venous thrombosis and/or pulmonary embolus.HIGH RISK: Target INR is 2.5-3.5 for patients with mechanical heart valves.URINALYSIS W/ REFLEX URINE [id number] 18:43:00 Test Item Value Reference Range Comments COLOR (BEAKER) (test gowr=710) Yellow CLARITY (BEAKER) (test mlvl=522) Clear SPECIFIC GRAVITY UA (BEAKER) (test wghy=804) 1.007 1.001-1.035 PH UA (BEAKER) (test heqj=616) 7.5 5.0-8.0 PROTEIN UA (BEAKER) (test tihd=368) 20 mg/dL Negative GLUCOSE UA (BEAKER) (test gdfq=037) Negative Negative KETONES UA (BEAKER) (test mcch=223) 20 mg/dL Negative BILIRUBIN UA (BEAKER) (test plgp=445) Negative Negative BLOOD UA (BEAKER) (test cgum=422) Trace Negative NITRITE UA (BEAKER) (test dqna=576) Negative Negative LEUKOCYTE ESTERASE UA (BEAKER) (test dewc=250) Negative Negative UROBILINOGEN UA (BEAKER) (test cppo=809) 2.0 mg/dL 0.2-1.0 RBC UA (BEAKER) (test oxlb=539) 3 /HPF WBC UA (BEAKER) (test jjxb=334) < /HPF MUCUS (BEAKER) (test qlfc=9141) Rare SOURCE(BEAKER) (test chsn=8888) VITAMIN B12 AND [id number] 15:08:00 Test Item Value Reference Range Comments VITAMIN B12 (BEAKER) (test uyqa=497) 1678 pg/mL 213-816 FOLATE (BEAKER) (test fisj=330) 19.4 ng/mL >=7.0 [id number] 14:48:00 Test Item Value Reference Range Comments FERRITIN (BEAKER) (test poak=493) 1698 ng/mL 5-275 IRON, TIBC, % SAT. (WITHOUT FERRITIN)[id number] 13:26:00 Test Item Value Reference Range Comments IRON (BEAKER) (test nkku=779) 44.0 ug/dL 40.0-160.0 TOTAL IRON BINDING CAPACITY (BEAKER) (test 186 ug/dL 250-450 hyca=520) IRON % SATURATION (2) (BEAKER) (test ryyy=2805) 24 % 20-55 HEPATITIS B SURFACE [id number] 13:26:00 Test Item Value Reference Range Comments HEPATITIS B SURFACE ANTIGEN (2) (BEAKER) (test Nonreactive Nonreactive obtk=5319) HEPATITIS C [id number] 13:26:00 Test Item Value Reference Range Comments HEPATITIS C ANTIBODY (BEAKER) (test whag=800) Nonreactive Nonreactive HIV-1 ANTIGEN WITH HIV-1/2 [id number] 13:26:00 Test Item Value Reference Range Comments HIV-1 ANTIGEN WITH HIV 1\T\2 ANTIBODY (2) Nonreactive Nonreactive (BEAKER) (test kdop=0101) HEPATITIS B SURFACE [id number] 13:19:00 Test Item Value Reference Range Comments HEPATITIS B SURFACE ANTIBODY (BEAKER) (test 34.5 mIU/mL <8.0 bnlr=984) HEPATITIS A ANTIBODY, [id number] 13:19:00 Test Item Value Reference Range Comments HEPATITIS A IGM ANTIBODY (BEAKER) (test Nonreactive Nonreactive xzto=016) HEPATITIS B CORE ANTIBODY, [id number] 13:19:00 Test Item Value Reference Range Comments HEPATITIS B CORE TOTAL ANTIBODY (BEAKER) (test Nonreactive Nonreactive dzjs=565) HEPATITIS A ANTIBODY, [id number] 13:19:00 Test Item Value Reference Range Comments HEPATITIS A IGG ANTIBODY (BEAKER) (test Nonreactive Nonreactive fyta=2055) PROTHROMBIN [id number] 13:00:00 Test Item Value Reference Range Comments PROTIME (BEAKER) (test kukx=734) 15.5 seconds 11.7-14.7 INR (BEAKER) (test pris=064) 1.2 <=5.9 RECOMMENDED COUMADIN/WARFARIN INR THERAPY RANGESSTANDARD DOSE: 2.0 - 3.0 Includes: PROPHYLAXIS forvenous thrombosis, systemic embolization; TREATMENT for venous thrombosis and/or pulmonary embolus.HIGH RISK: Target INR is 2.5-3.5 for patients with mechanical heart valves.[id number] 03:31:00 Test Item Value Reference Range Comments PHOSPHORUS (BEAKER) (test cbzz=319) 3.5 mg/dL 2.3-4.7 [id number] 03:31:00 Test Item Value Reference Range Comments MAGNESIUM (BEAKER) (test ssno=582) 1.5 mg/dL 1.6-2.6 COMPREHENSIVE METABOLIC [id number] 03:31:00 Test Item Value Reference Range Comments TOTAL PROTEIN (BEAKER) 6.5 gm/dL 6.0-8.3 (test vsun=715) ALBUMIN (BEAKER) (test 3.7 g/dL 3.5-5.0 rqqr=8598) ALKALINE PHOSPHATASE 200 U/L 40-150 (BEAKER) (test ejrk=851) BILIRUBIN TOTAL (BEAKER) 0.8 mg/dL 0.2-1.2 (test ufuc=485) SODIUM (BEAKER) (test 142 meq/L 136-145 easq=426) POTASSIUM (BEAKER) (test 3.1 meq/L 3.5-5.1 jchj=391) CHLORIDE (BEAKER) (test 103 meq/L 98-107 nejq=806) CO2 (BEAKER) (test 24 meq/L 22-29 chyt=530) BLOOD UREA NITROGEN 4 mg/dL 7-21 (BEAKER) (test llmd=545) CREATININE (BEAKER) (test 0.55 mg/dL 0.57-1.25 hgoq=542) GLUCOSE RANDOM (BEAKER) 100 mg/dL 70-105 (test ulgi=590) CALCIUM (BEAKER) (test 8.5 mg/dL 8.4-10.2 efyh=996) AST (SGOT) (BEAKER) (test 318 U/L 5-34 cevv=948) ALT (SGPT) (BEAKER) (test 244 U/L 6-55 wrcb=669) EGFR (BEAKER) (test 173 mL/min/1.73 sq ESTIMATED GFR IS NOT wgzq=2301) m ACCURATE CREATININE CLEARANCE IN PREDICTING GLOMERULAR FILTRATION RATE. ESTIMATED GFR IS NOT APPLICABLE FOR DIALYSIS PATIENTS. CBC W/PLT COUNT & AUTO [id number] 03:03:00 Test Item Value Reference Range Comments WHITE BLOOD CELL COUNT (BEAKER) (test qkbk=472) 4.2 K/ L 3.5-10.5 RED BLOOD CELL COUNT (BEAKER) (test bvui=584) 3.61 M/ L 4.63-6.08 HEMOGLOBIN (BEAKER) (test bmzp=667) 12.3 GM/DL 13.7-17.5 HEMATOCRIT (BEAKER) (test mpvk=911) 35.9 % 40.1-51.0 MEAN CORPUSCULAR VOLUME (BEAKER) (test nedp=435) 99.4 fL 79.0-92.2 MEAN CORPUSCULAR HEMOGLOBIN (BEAKER) (test 34.1 pg 25.7-32.2 suic=957) MEAN CORPUSCULAR HEMOGLOBIN CONC (BEAKER) (test 34.3 GM/DL 32.3-36.5 kbrr=688) RED CELL DISTRIBUTION WIDTH (BEAKER) (test 12.3 % 11.6-14.4 hbek=844) PLATELET COUNT (BEAKER) (test fipn=162) 122 K/CU MM 150-450 MEAN PLATELET VOLUME (BEAKER) (test phsl=795) 9.8 fL 9.4-12.4 NUCLEATED RED BLOOD CELLS (BEAKER) (test 0 /100 WBC 0-0 opwk=970) NEUTROPHILS RELATIVE PERCENT (BEAKER) (test 70 % lihg=144) LYMPHOCYTES RELATIVE PERCENT (BEAKER) (test 17 % enzd=216) MONOCYTES RELATIVE PERCENT (BEAKER) (test 11 % ftlh=332) EOSINOPHILS RELATIVE PERCENT (BEAKER) (test 1 % uhrr=733) BASOPHILS RELATIVE PERCENT (BEAKER) (test 1 % xsgk=655) NEUTROPHILS ABSOLUTE COUNT (BEAKER) (test 2.94 K/ L 1.78-5.38 ryxa=551) LYMPHOCYTES ABSOLUTE COUNT (BEAKER) (test 0.73 K/ L 1.32-3.57 wffb=569) MONOCYTES ABSOLUTE COUNT (BEAKER) (test 0.45 K/ L 0.30-0.82 clzz=000) EOSINOPHILS ABSOLUTE COUNT (BEAKER) (test 0.04 K/ L 0.04-0.54 dedj=111) BASOPHILS ABSOLUTE COUNT (BEAKER) (test 0.02 K/ L 0.01-0.08 itib=790) IMMATURE GRANULOCYTES-RELATIVE PERCENT (BEAKER) 1 % 0-1 (test bqss=4372) POCT-GLUCOSE [id number] 12:15:00 Test Item Value Reference Range Comments POC-GLUCOSE METER (BEAKER) 99 mg/dL 70-110 TESTED AT [facility] [address] [facility] (test lnby=2202) [employer] [address] [id number] 06:15:00 Test Item Value Reference Range Comments MAGNESIUM (BEAKER) (test czga=582) 1.8 mg/dL 1.6-2.6 COMPREHENSIVE METABOLIC [id number] 06:15:00 Test Item Value Reference Range Comments TOTAL PROTEIN (BEAKER) 6.6 gm/dL 6.0-8.3 (test wxgm=599) ALBUMIN (BEAKER) (test 3.6 g/dL 3.5-5.0 qimx=9269) ALKALINE PHOSPHATASE 149 U/L 40-150 (BEAKER) (test nnrd=881) BILIRUBIN TOTAL (BEAKER) 0.8 mg/dL 0.2-1.2 (test xnhf=575) SODIUM (BEAKER) (test 135 meq/L 136-145 shgb=290) POTASSIUM (BEAKER) (test 3.6 meq/L 3.5-5.1 bqak=107) CHLORIDE (BEAKER) (test 98 meq/L 98-107 kmmp=481) CO2 (BEAKER) (test 26 meq/L 22-29 uiqx=222) BLOOD UREA NITROGEN 8 mg/dL 7-21 (BEAKER) (test eiiu=423) CREATININE (BEAKER) (test 0.57 mg/dL 0.57-1.25 jqdm=075) GLUCOSE RANDOM (BEAKER) 100 mg/dL 70-105 (test kjus=080) CALCIUM (BEAKER) (test 9.5 mg/dL 8.4-10.2 rpcw=610) AST (SGOT) (BEAKER) (test 155 U/L 5-34 mpbi=097) ALT (SGPT) (BEAKER) (test 151 U/L 6-55 acmw=371) EGFR (BEAKER) (test 166 mL/min/1.73 sq ESTIMATED GFR IS NOT fhhn=5400) m ACCURATE CREATININE CLEARANCE IN PREDICTING GLOMERULAR FILTRATION RATE. ESTIMATED GFR IS NOT APPLICABLE FOR DIALYSIS PATIENTS. CBC W/PLT COUNT & AUTO [id number] 05:30:00 Test Item Value Reference Range Comments WHITE BLOOD CELL COUNT (BEAKER) (test aotl=307) 5.1 K/ L 3.5-10.5 RED BLOOD CELL COUNT (BEAKER) (test gidk=908) 3.81 M/ L 4.63-6.08 HEMOGLOBIN (BEAKER) (test kcam=508) 13.1 GM/DL 13.7-17.5 HEMATOCRIT (BEAKER) (test vsnq=096) 37.6 % 40.1-51.0 MEAN CORPUSCULAR VOLUME (BEAKER) (test vprg=668) 98.7 fL 79.0-92.2 MEAN CORPUSCULAR HEMOGLOBIN (BEAKER) (test 34.4 pg 25.7-32.2 fjxh=315) MEAN CORPUSCULAR HEMOGLOBIN CONC (BEAKER) (test 34.8 GM/DL 32.3-36.5 sxiv=350) RED CELL DISTRIBUTION WIDTH (BEAKER) (test 11.5 % 11.6-14.4 hury=730) PLATELET COUNT (BEAKER) (test dgwe=547) 152 K/CU MM 150-450 MEAN PLATELET VOLUME (BEAKER) (test upkg=285) 10.2 fL 9.4-12.4 NUCLEATED RED BLOOD CELLS (BEAKER) (test 0 /100 WBC 0-0 rfna=032) NEUTROPHILS RELATIVE PERCENT (BEAKER) (test 71 % zfuc=236) LYMPHOCYTES RELATIVE PERCENT (BEAKER) (test 14 % thea=417) MONOCYTES RELATIVE PERCENT (BEAKER) (test 11 % kors=524) EOSINOPHILS RELATIVE PERCENT (BEAKER) (test 2 % jcpw=250) BASOPHILS RELATIVE PERCENT (BEAKER) (test 1 % hxwn=161) NEUTROPHILS ABSOLUTE COUNT (BEAKER) (test 3.66 K/ L 1.78-5.38 pglv=185) LYMPHOCYTES ABSOLUTE COUNT (BEAKER) (test 0.71 K/ L 1.32-3.57 dyfd=300) MONOCYTES ABSOLUTE COUNT (BEAKER) (test 0.58 K/ L 0.30-0.82 ztum=237) EOSINOPHILS ABSOLUTE COUNT (BEAKER) (test 0.10 K/ L 0.04-0.54 kpie=230) BASOPHILS ABSOLUTE COUNT (BEAKER) (test 0.04 K/ L 0.01-0.08 myhq=609) IMMATURE GRANULOCYTES-RELATIVE PERCENT (BEAKER) 1 % 0-1 (test aalg=0623) POCT-GLUCOSE [id number] 11:54:00 Test Item Value Reference Range Comments POC-GLUCOSE METER (BEAKER) 83 mg/dL 70-110 TESTED AT [facility] [address] [facility] (test xsbb=9515) [employer] [address] [id number] 05:54:00 Test Item Value Reference Range Comments PHOSPHORUS (BEAKER) (test nqjt=321) 2.3 mg/dL 2.3-4.7 [id number] 05:54:00 Test Item Value Reference Range Comments MAGNESIUM (BEAKER) (test oueo=511) 2.0 mg/dL 1.6-2.6 COMPREHENSIVE METABOLIC [id number] 05:54:00 Test Item Value Reference Range Comments TOTAL PROTEIN (BEAKER) 6.0 gm/dL 6.0-8.3 (test owwx=843) ALBUMIN (BEAKER) (test 3.2 g/dL 3.5-5.0 hnnw=9008) ALKALINE PHOSPHATASE 134 U/L 40-150 (BEAKER) (test yhnh=627) BILIRUBIN TOTAL (BEAKER) 1.1 mg/dL 0.2-1.2 (test nbim=973) SODIUM (BEAKER) (test 134 meq/L 136-145 mzbq=725) POTASSIUM (BEAKER) (test 3.6 meq/L 3.5-5.1 dsqk=506) CHLORIDE (BEAKER) (test 100 meq/L 98-107 enpd=224) CO2 (BEAKER) (test 26 meq/L 22-29 iwby=972) BLOOD UREA NITROGEN 4 mg/dL 7-21 (BEAKER) (test nmph=939) CREATININE (BEAKER) (test 0.54 mg/dL 0.57-1.25 ohrw=679) GLUCOSE RANDOM (BEAKER) 141 mg/dL 70-105 (test edrb=656) CALCIUM (BEAKER) (test 8.8 mg/dL 8.4-10.2 fgfb=163) AST (SGOT) (BEAKER) (test 183 U/L 5-34 ivwm=934) ALT (SGPT) (BEAKER) (test 149 U/L 6-55 xsqc=211) EGFR (BEAKER) (test 176 mL/min/1.73 sq ESTIMATED GFR IS NOT mbwu=3452) m ACCURATE CREATININE CLEARANCE IN PREDICTING GLOMERULAR FILTRATION RATE. ESTIMATED GFR IS NOT APPLICABLE FOR DIALYSIS PATIENTS. LACTIC ACID, [id number] 05:35:00 Test Item Value Reference Range Comments LACTATE BLOOD VENOUS (2) (BEAKER) (test 1.0 mmol/L 0.5-2.2 rkfr=0232) CBC W/PLT COUNT & AUTO [id number] 05:23:00 Test Item Value Reference Range Comments WHITE BLOOD CELL COUNT (BEAKER) (test hpzi=275) 5.0 K/ L 3.5-10.5 RED BLOOD CELL COUNT (BEAKER) (test smiq=807) 3.88 M/ L 4.63-6.08 HEMOGLOBIN (BEAKER) (test rsch=461) 13.0 GM/DL 13.7-17.5 HEMATOCRIT (BEAKER) (test rocc=061) 38.5 % 40.1-51.0 MEAN CORPUSCULAR VOLUME (BEAKER) (test nnsw=190) 99.2 fL 79.0-92.2 MEAN CORPUSCULAR HEMOGLOBIN (BEAKER) (test 33.5 pg 25.7-32.2 tphh=307) MEAN CORPUSCULAR HEMOGLOBIN CONC (BEAKER) (test 33.8 GM/DL 32.3-36.5 uaab=904) RED CELL DISTRIBUTION WIDTH (BEAKER) (test 11.6 % 11.6-14.4 vyfc=938) PLATELET COUNT (BEAKER) (test eimp=169) 113 K/CU MM 150-450 MEAN PLATELET VOLUME (BEAKER) (test hzdv=235) 10.7 fL 9.4-12.4 NUCLEATED RED BLOOD CELLS (BEAKER) (test 0 /100 WBC 0-0 kbte=869) NEUTROPHILS RELATIVE PERCENT (BEAKER) (test 72 % uslw=463) LYMPHOCYTES RELATIVE PERCENT (BEAKER) (test 15 % igsz=678) MONOCYTES RELATIVE PERCENT (BEAKER) (test 10 % pnzl=393) EOSINOPHILS RELATIVE PERCENT (BEAKER) (test 2 % jpio=929) BASOPHILS RELATIVE PERCENT (BEAKER) (test 1 % vdos=756) NEUTROPHILS ABSOLUTE COUNT (BEAKER) (test 3.56 K/ L 1.78-5.38 whnj=149) LYMPHOCYTES ABSOLUTE COUNT (BEAKER) (test 0.76 K/ L 1.32-3.57 vgmg=931) MONOCYTES ABSOLUTE COUNT (BEAKER) (test 0.49 K/ L 0.30-0.82 goqt=059) EOSINOPHILS ABSOLUTE COUNT (BEAKER) (test 0.10 K/ L 0.04-0.54 ajmj=500) BASOPHILS ABSOLUTE COUNT (BEAKER) (test 0.04 K/ L 0.01-0.08 hpnp=880) IMMATURE GRANULOCYTES-RELATIVE PERCENT (BEAKER) 1 % 0-1 (test smdc=0825) POCT-GLUCOSE [id number] 18:44:00 Test Item Value Reference Range Comments POC-GLUCOSE METER (BEAKER) 100 mg/dL 70-110 TESTED AT [facility] [address] [facility] (test ilcy=4723) [employer] [address] [id number] 17:58:00 Test Item Value Reference Range Comments PHOSPHORUS (BEAKER) (test eibs=199) 2.3 mg/dL 2.3-4.7 [id number] 17:58:00 Test Item Value Reference Range Comments MAGNESIUM (BEAKER) (test kimf=620) 1.8 mg/dL 1.6-2.6 BASIC METABOLIC [id number] 17:58:00 Test Item Value Reference Range Comments SODIUM (BEAKER) (test 137 meq/L 136-145 aypl=111) POTASSIUM (BEAKER) (test 3.6 meq/L 3.5-5.1 hikq=921) CHLORIDE (BEAKER) (test 102 meq/L 98-107 yudv=675) CO2 (BEAKER) (test 26 meq/L 22-29 mowq=178) BLOOD UREA NITROGEN 4 mg/dL 7-21 (BEAKER) (test froj=236) CREATININE (BEAKER) (test 0.54 mg/dL 0.57-1.25 gsni=098) GLUCOSE RANDOM (BEAKER) 123 mg/dL 70-105 (test ypnn=024) CALCIUM (BEAKER) (test 8.7 mg/dL 8.4-10.2 eabo=465) EGFR (BEAKER) (test 177 mL/min/1.73 sq m ESTIMATED GFR IS NOT ghki=7916) ACCURATE CREATININE CLEARANCE IN PREDICTING GLOMERULAR FILTRATION RATE. ESTIMATED GFR IS NOT APPLICABLE FOR DIALYSIS PATIENTS. [id number] 16:55:00 Test Item Value Reference Range Comments MAGNESIUM (BEAKER) (test 1.6 mg/dL 1.6-2.6 Specimen slightly hemolyzed cqcu=310) [id number] 16:55:00 Test Item Value Reference Range Comments PHOSPHORUS (BEAKER) (test 2.3 mg/dL 2.3-4.7 Specimen slightly hemolyzed cduz=648) BASIC METABOLIC [id number] 16:55:00 Test Item Value Reference Range Comments SODIUM (BEAKER) (test 138 meq/L 136-145 rkfk=130) POTASSIUM (BEAKER) (test 3.7 meq/L 3.5-5.1 Specimen slightly rgxz=002) hemolyzed CHLORIDE (BEAKER) (test 105 meq/L 98-107 rsxb=000) CO2 (BEAKER) (test 23 meq/L 22-29 brqj=933) BLOOD UREA NITROGEN 4 mg/dL 7-21 (BEAKER) (test jtcr=704) CREATININE (BEAKER) (test 0.51 mg/dL 0.57-1.25 Specimen slightly nzvr=802) hemolyzed GLUCOSE RANDOM (BEAKER) 99 mg/dL 70-105 (test sbqc=114) CALCIUM (BEAKER) (test 8.0 mg/dL 8.4-10.2 cghu=896) EGFR (BEAKER) (test 190 mL/min/1.73 sq m ESTIMATED GFR IS NOT juse=2998) ACCURATE CREATININE CLEARANCE IN PREDICTING GLOMERULAR FILTRATION RATE. ESTIMATED GFR IS NOT APPLICABLE FOR DIALYSIS PATIENTS. POCT-GLUCOSE [id number] 12:41:00 Test Item Value Reference Range Comments POC-GLUCOSE METER (BEAKER) 100 mg/dL 70-110 TESTED AT [facility] [address] [facility] (test nmtt=9511) [employer] [address] POCT-GLUCOSE [id number] 08:07:00 Test Item Value Reference Range Comments POC-GLUCOSE METER (BEAKER) 99 mg/dL 70-110 TESTED AT [facility] [address] [facility] (test lxes=9833) [employer] [address] U/S, ABDOMINAL, [id number] 08:05:00Abdomen limited area? Add comment if clarification [...] Verified Date /Time: 09/30/2018 08:05:48 Reading Location: [facility] [id number] Ultrasound Reading Room [id number] 07:23:00 Test Item Value Reference Range Comments PHOSPHORUS (BEAKER) (test lwjr=079) 1.2 mg/dL 2.3-4.7 [id number] 07:11:00 Test Item Value Reference Range Comments MAGNESIUM (BEAKER) (test znsm=106) 2.3 mg/dL 1.6-2.6 COMPREHENSIVE METABOLIC [id number] 07:11:00 Test Item Value Reference Range Comments TOTAL PROTEIN (BEAKER) 5.8 gm/dL 6.0-8.3 (test acut=920) ALBUMIN (BEAKER) (test 3.1 g/dL 3.5-5.0 yirv=5160) ALKALINE PHOSPHATASE 141 U/L 40-150 (BEAKER) (test rckn=537) BILIRUBIN TOTAL (BEAKER) 1.1 mg/dL 0.2-1.2 (test hcyi=085) SODIUM (BEAKER) (test 135 meq/L 136-145 tbps=025) POTASSIUM (BEAKER) (test 3.7 meq/L 3.5-5.1 judx=832) CHLORIDE (BEAKER) (test 104 meq/L 98-107 lfqp=110) CO2 (BEAKER) (test 24 meq/L 22-29 dyaf=706) BLOOD UREA NITROGEN 5 mg/dL 7-21 (BEAKER) (test shst=151) CREATININE (BEAKER) (test 0.39 mg/dL 0.57-1.25 gvrr=201) GLUCOSE RANDOM (BEAKER) 114 mg/dL 70-105 (test fihu=634) CALCIUM (BEAKER) (test 8.3 mg/dL 8.4-10.2 akkw=562) AST (SGOT) (BEAKER) (test 354 U/L 5-34 dtcz=846) ALT (SGPT) (BEAKER) (test 188 U/L 6-55 gehn=027) EGFR (BEAKER) (test 258 mL/min/1.73 sq ESTIMATED GFR IS NOT wezg=3722) m ACCURATE CREATININE CLEARANCE IN PREDICTING GLOMERULAR FILTRATION RATE. ESTIMATED GFR IS NOT APPLICABLE FOR DIALYSIS PATIENTS. LACTIC ACID, [id number] 04:07:00 Test Item Value Reference Range Comments LACTATE BLOOD VENOUS (2) 0.8 mmol/L 0.5-2.2 Specimen slightly hemolyzed (BEAKER) (test lpaj=4615) CBC W/PLT COUNT & AUTO [id number] 04:00:00 Test Item Value Reference Range Comments WHITE BLOOD CELL COUNT (BEAKER) (test ddbz=833) 6.1 K/ L 3.5-10.5 RED BLOOD CELL COUNT (BEAKER) (test bwuj=945) 3.87 M/ L 4.63-6.08 HEMOGLOBIN (BEAKER) (test xouy=306) 13.3 GM/DL 13.7-17.5 HEMATOCRIT (BEAKER) (test hrhw=822) 39.1 % 40.1-51.0 MEAN CORPUSCULAR VOLUME (BEAKER) (test iksc=782) 101.0 fL 79.0-92.2 MEAN CORPUSCULAR HEMOGLOBIN (BEAKER) (test 34.4 pg 25.7-32.2 qefj=323) MEAN CORPUSCULAR HEMOGLOBIN CONC (BEAKER) (test 34.0 GM/DL 32.3-36.5 wviq=437) RED CELL DISTRIBUTION WIDTH (BEAKER) (test 12.1 % 11.6-14.4 bbml=490) PLATELET COUNT (BEAKER) (test qifb=782) 105 K/CU MM 150-450 MEAN PLATELET VOLUME (BEAKER) (test chyz=351) 10.4 fL 9.4-12.4 NUCLEATED RED BLOOD CELLS (BEAKER) (test 0 /100 WBC 0-0 dkjw=384) NEUTROPHILS RELATIVE PERCENT (BEAKER) (test 74 % pgrz=182) LYMPHOCYTES RELATIVE PERCENT (BEAKER) (test 14 % gsxi=618) MONOCYTES RELATIVE PERCENT (BEAKER) (test 10 % mugx=654) EOSINOPHILS RELATIVE PERCENT (BEAKER) (test 1 % abtr=588) BASOPHILS RELATIVE PERCENT (BEAKER) (test 1 % kygx=541) NEUTROPHILS ABSOLUTE COUNT (BEAKER) (test 4.52 K/ L 1.78-5.38 xats=048) LYMPHOCYTES ABSOLUTE COUNT (BEAKER) (test 0.84 K/ L 1.32-3.57 wzfk=546) MONOCYTES ABSOLUTE COUNT (BEAKER) (test 0.62 K/ L 0.30-0.82 lhja=239) EOSINOPHILS ABSOLUTE COUNT (BEAKER) (test 0.06 K/ L 0.04-0.54 gdng=188) BASOPHILS ABSOLUTE COUNT (BEAKER) (test 0.03 K/ L 0.01-0.08 nvtx=694) IMMATURE GRANULOCYTES-RELATIVE PERCENT (BEAKER) 0 % 0-1 (test gkhd=2903) [id number] 01:32:00 Test Item Value Reference Range Comments PROCALCITONIN (BEAKER) (test sybt=5649) 0.48 ng/mL <0.05 SEPSIS RISK (ng/mL)Low: 0.05-0.50Intermediate: 0.51-2.00High: & gt;=2.01BASIC METABOLIC [id number] 00:58:00 Test Item Value Reference Range Comments SODIUM (BEAKER) (test 135 meq/L 136-145 sgnx=593) POTASSIUM (BEAKER) (test 3.4 meq/L 3.5-5.1 ztge=451) CHLORIDE (BEAKER) (test 104 meq/L 98-107 ozqj=927) CO2 (BEAKER) (test 22 meq/L 22-29 liky=563) BLOOD UREA NITROGEN 7 mg/dL 7-21 (BEAKER) (test dhem=075) CREATININE (BEAKER) (test 0.55 mg/dL 0.57-1.25 txwh=015) GLUCOSE RANDOM (BEAKER) 113 mg/dL 70-105 (test fwdv=939) CALCIUM (BEAKER) (test 8.4 mg/dL 8.4-10.2 qehe=789) EGFR (BEAKER) (test 174 mL/min/1.73 sq m ESTIMATED GFR IS NOT fymn=9081) ACCURATE CREATININE CLEARANCE IN PREDICTING GLOMERULAR FILTRATION RATE. ESTIMATED GFR IS NOT APPLICABLE FOR DIALYSIS PATIENTS. [id number] 00:57:00 Test Item Value Reference Range Comments MAGNESIUM (BEAKER) (test gaxr=634) 1.5 mg/dL 1.6-2.6 LACTIC ACID, [id number] 00:37:00 Test Item Value Reference Range Comments LACTATE BLOOD VENOUS (2) 0.7 mmol/L 0.5-2.2 Specimen moderately hemolyzed (BEAKER) (test ekay=3349) POCT-GLUCOSE [id number] 00:25:00 Test Item Value Reference Range Comments POC-GLUCOSE METER (BEAKER) 101 mg/dL 70-110 TESTED AT [address] (test sbel=3944) [place] [id number] POCT-GLUCOSE [id number] 18:32:00 Test Item Value Reference Range Comments POC-GLUCOSE METER (BEAKER) 76 mg/dL 70-110 TESTED AT [address] (test dvku=8390) [place] [address] [id number] 15:15:00 Test Item Value Reference Range Comments POTASSIUM (BEAKER) (test nceh=383) 3.4 meq/L 3.5-5.1 [id number] 15:15:00 Test Item Value Reference Range Comments MAGNESIUM (BEAKER) (test cqsc=717) 2.1 mg/dL 1.6-2.6 CT, [id number] 12:38:00FINAL REPORT CT abdomen with and without [...] Verified Date/Time: 09/29/2018 12:38:07 Reading Location : [address] Consult Reading Room POCT-GLUCOSE [id number] 11:49:00 Test Item Value Reference Range Comments POC-GLUCOSE METER (BEAKER) 83 mg/dL 70-110 TESTED AT [facility] [address] [place] [address] (test yeew=7574) [employer] [address] [id number] 10:49:00 Test Item Value Reference Range Comments TRIGLYCERIDES (BEAKER) (test 71 mg/dL Specimen slightly hemolyzed pqdk=397) TRIGLYCERIDE REFERENCE RANGELow Risk <150Borderline Risk 150-199High Risk 200-499Very High Risk>=[id number] 05:09:00 Test Item Value Reference Range Comments LIPASE (BEAKER) (test xotr=657) > U/L 8-78 [id number] 04:35:00 Test Item Value Reference Range Comments MAGNESIUM (BEAKER) (test 1.6 mg/dL 1.6-2.6 Specimen slightly hemolyzed oiuz=935) [id number] 04:35:00 Test Item Value Reference Range Comments PHOSPHORUS (BEAKER) (test 3.2 mg/dL 2.3-4.7 Specimen slightly hemolyzed zdnj=784) COMPREHENSIVE METABOLIC [id number] 04:35:00 Test Item Value Reference Range Comments TOTAL PROTEIN (BEAKER) 6.8 gm/dL 6.0-8.3 Specimen slightly (test fyse=178) hemolyzed ALBUMIN (BEAKER) (test 3.8 g/dL 3.5-5.0 Specimen slightly tbka=1555) hemolyzed ALKALINE PHOSPHATASE 130 U/L 40-150 (BEAKER) (test ttxh=273) BILIRUBIN TOTAL (BEAKER) 1.7 mg/dL 0.2-1.2 Specimen slightly (test kpje=857) hemolyzed SODIUM (BEAKER) (test 138 meq/L 136-145 essw=101) POTASSIUM (BEAKER) (test 3.7 meq/L 3.5-5.1 Specimen slightly vqsm=603) hemolyzed CHLORIDE (BEAKER) (test 103 meq/L 98-107 kbva=486) CO2 (BEAKER) (test 17 meq/L 22-29 ljky=033) BLOOD UREA NITROGEN 9 mg/dL 7-21 (BEAKER) (test yrxc=418) CREATININE (BEAKER) (test 0.65 mg/dL 0.57-1.25 Specimen slightly babf=195) hemolyzed GLUCOSE RANDOM (BEAKER) 103 mg/dL 70-105 (test rjqg=123) CALCIUM (BEAKER) (test 8.7 mg/dL 8.4-10.2 pjjg=290) AST (SGOT) (BEAKER) (test 151 U/L 5-34 Specimen slightly swxs=932) hemolyzed ALT (SGPT) (BEAKER) (test 143 U/L 6-55 Specimen slightly tdki=739) hemolyzed EGFR (BEAKER) (test 143 mL/min/1.73 sq ESTIMATED GFR IS NOT sgrs=2636) m ACCURATE CREATININE CLEARANCE IN PREDICTING GLOMERULAR FILTRATION RATE. ESTIMATED GFR IS NOT APPLICABLE FOR DIALYSIS PATIENTS. PROTHROMBIN [id number] 04:34:00 Test Item Value Reference Range Comments PROTIME (BEAKER) (test oqkd=004) 14.6 seconds 11.7-14.7 INR (BEAKER) (test mcgi=284) 1.1 <=5.9 RECOMMENDED COUMADIN/WARFARIN INR THERAPY RANGESSTANDARD DOSE: 2.0 - 3.0 Includes: PROPHYLAXIS forvenous thrombosis, systemic embolization; TREATMENT for venous thrombosis and/or pulmonary embolus.HIGH RISK: Target INR is 2.5-3.5 for patients with mechanical heart valves.CBC W/PLT COUNT & AUTO [id number] 04:09:00 Test Item Value Reference Range Comments WHITE BLOOD CELL COUNT (BEAKER) (test mhqj=237) 6.2 K/ L 3.5-10.5 RED BLOOD CELL COUNT (BEAKER) (test xevd=435) 4.33 M/ L 4.63-6.08 HEMOGLOBIN (BEAKER) (test ratf=044) 15.0 GM/DL 13.7-17.5 HEMATOCRIT (BEAKER) (test blgw=566) 43.2 % 40.1-51.0 MEAN CORPUSCULAR VOLUME (BEAKER) (test zxtu=314) 99.8 fL 79.0-92.2 MEAN CORPUSCULAR HEMOGLOBIN (BEAKER) (test 34.6 pg 25.7-32.2 befy=770) MEAN CORPUSCULAR HEMOGLOBIN CONC (BEAKER) (test 34.7 GM/DL 32.3-36.5 cmvv=895) RED CELL DISTRIBUTION WIDTH (BEAKER) (test 12.4 % 11.6-14.4 lxds=322) PLATELET COUNT (BEAKER) (test gebh=420) 160 K/CU MM 150-450 MEAN PLATELET VOLUME (BEAKER) (test ybhb=666) 10.4 fL 9.4-12.4 NUCLEATED RED BLOOD CELLS (BEAKER) (test 0 /100 WBC 0-0 caoi=730) NEUTROPHILS RELATIVE PERCENT (BEAKER) (test 81 % noox=905) LYMPHOCYTES RELATIVE PERCENT (BEAKER) (test 7 % wghg=084) MONOCYTES RELATIVE PERCENT (BEAKER) (test 10 % gelc=506) EOSINOPHILS RELATIVE PERCENT (BEAKER) (test 0 % cvul=252) BASOPHILS RELATIVE PERCENT (BEAKER) (test 1 % qbhv=295) NEUTROPHILS ABSOLUTE COUNT (BEAKER) (test 5.01 K/ L 1.78-5.38 ubss=794) LYMPHOCYTES ABSOLUTE COUNT (BEAKER) (test 0.44 K/ L 1.32-3.57 objw=326) MONOCYTES ABSOLUTE COUNT (BEAKER) (test 0.62 K/ L 0.30-0.82 ffjg=377) EOSINOPHILS ABSOLUTE COUNT (BEAKER) (test 0.01 K/ L 0.04-0.54 axmh=006) BASOPHILS ABSOLUTE COUNT (BEAKER) (test 0.03 K/ L 0.01-0.08 ftji=426) IMMATURE GRANULOCYTES-RELATIVE PERCENT (BEAKER) 1 % 0-1 (test gcpe=6689)
[2019-06-01] MEDS ORDERED: NA CHLORIDE 0.9% 1,000 ML ONE ×2 (15:18→17:08)
[2019-06-01 15:57] LABS: Absolute Lymphocytes (CBC) 2.9 K/uL (0.7-4.9); Basophils % 0.8 % (0-1.3); Hematocrit 37.8 % (39.6-49.0); Lymphocytes % 44.2 % (15.3-44.8); MPV 7.2 fL (7.6-11.3); RBC Red Blood Cell Count 4.35 M/uL (4.33-5.43)
[2019-06-01] MEDS ORDERED: MORPHINE 4 MG/ML SYR ONE ×2 (16:02→17:08)
[2019-06-01] MEDS ORDERED: ONDANSETRON 4 MG/2 ML VIAL ONE ×2 (16:02→20:24)
[2019-06-01 16:11] LABS: ALT/SGPT 38 U/L (12-78); AST/SGOT 44 U/L (15-37); Albumin 3.7 g/dL (3.4-5.0); Alkaline Phosphatase 120 U/L (45-117); BUN Blood Urea Nitrogen 12 mg/dL (7-18); Bicarbonate 28 mmol/L (21-32); Bilirubin Direct < 0.1 mg/dL (0-0.2); Bilirubin Total 0.1 mg/dL (0.2-1.0); Glucose Level 100 mg/dL (74-106); Lipase 175 U/L (73-393); Potassium 3.5 mmol/L (3.5-5.1); Protein, Total 7.3 g/dL (6.4-8.2); Sodium Level 148 mmol/L (136-145)
--- NOTE | 2019-06-01 16:51 | RAD REPORT ---
EXAM DESCRIPTION: CT - Abdomen Pelvis W Contrast - 06/01/2019 4:36 pm CLINICAL HISTORY: ABD PAIN, history pancreatitis, history of alcohol abuse COMPARISON: CT study May 25, 2019 TECHNIQUE: Biphasic, helical CT imaging of the abdomen and pelvis was performed following 100 ml non -ionic IV contrast. No oral contrast was given. All CT scans are performed using dose optimization technique as appropriate and may include automated exposure control or mA/KV adjustment according to patient size. FINDINGS: No suspicious findings in the lung bases. The liver and spleen show no suspicious findings. No acute gallbladder or biliary tree finding. No defined mass of the pancreas seen. There is a mild stranding or edema in the fatty tissues surrou nding the head and uncinate process of the pancreas. In the head and uncinate process the margins are not sharply demarcated. No pseudocyst. Finding is consistent with a mild pancreatitis similar to May imaging. Symmetric renal function is seen with no hydronephrosis or suspicious renal mass. No pyelonephritis o r acute parenchymal process. Nonobstructing calculi seen. No urinary bladder abnormality. Urinary flori dder is well filled. No adrenal abnormalities. Mild hiatal hernia. No gastric dilatation or wall thickening. Medial sullivan of the duodenal C-loop are somewhat indistinct and may be minimally involved by the mild pancreatitis. More distally small carrillo l is unremarkable. No acute colon finding. No free air, free fluid or pneumatosis. No hernia, mass or bulky lymphadenopathy. No suspicious bony findings. IMPRESSION: Mild pancreatitis findings are present and there may be mild secondary involvement along the medial margin duodenal C-loop. No pseudocyst, abscess or other complicating factor. Findings are not significantly different from May 25 imaging.
--- NOTE | 2019-06-01 17:17 | EDPHYS ---
Physician Documentation [facility] Name: Jonathan Gutierrez Age: 33 yrs Sex: Male : 1985 Arrival Date: 06/01/2019 Time: 14:56 Bed 15 Private MD: ED Physician Prateek Lacey HPI: 06/01 16:48 This 33 yrs old Male presents to ER via EMS with complaints of Abdominal Pain.pm1 16:48 The patient presents with abdominal pain. pm1 16:48 Onset: The symptoms/episode began/occurred 5 day(s) ago. The symptoms do not radiate. pm1 Associated signs and symptoms: Pertinent positives: nausea, vomiting, and diarrhea, Pertinent negatives: chest pain, constipation, dysuria, fever, shortness of breath, testicular pain. The symptoms are described as achy, constant. Modifying factors: The symptoms are alleviated by Alcohol. Severity of pain: in the emergency department the pain is actually worse. The patient has experienced similar episodes in the past, multiple times. The patient has been recently seen at the [facility] Emergency Department, last week. Last drank alcohol prior to arrival. Patient reports that alcohol helps with his abdominal pain. Historical: - Allergies: 14:52 No Known Allergies; rb1 - Home Meds: 14:52 None [Active]; rb1 - PMHx: 14:52 ADD/ADHD; etoh abuse; Hypertension; liver "spot"; Pancreatitis; rb1 - PSHx: 14:52 None; rb1 - Immunization history:: Adult Immunizations up to date. - Social history:: Smoking status: Patient uses tobacco products, smokes one pack cigarettes per day. - Ebola Screening: : Patient negative for fever greater than or equal to 101.5 degrees Fahrenheit, and additional compatible Ebola Virus Disease symptoms. ROS: 16:48 Constitutional: Negative for fever, chills, and weight loss, Eyes: Negative for injury, pm1 pain, redness, and discharge, ENT: Negative for injury, pain, and discharge, Neck: Negative for injury, pain, and swelling, Cardiovascular: Negative for chest pain, palpitations, and edema, Respiratory: Negative for shortness of breath, cough, wheezing, and pleuritic chest pain. 16:48 Back: Negative for injury and pain, : Negative for injury, bleeding, discharge, and swelling, MS/Extremity: Negative for injury and deformity, Skin: Negative for injury, rash, and discoloration, Neuro: Negative for headache, weakness, numbness, tingling, and seizure. 16:48 Abdomen/GI: Positive for abdominal pain, nausea, vomiting, and diarrhea, Negative for constipation, hematemesis, black/tarry stool, rectal bleeding. Exam: 16:48 Constitutional: This is a well developed, well nourished patient who is awake, alert, pm1 and in no acute distress. Head/Face: Normocephalic, atraumatic. Chest/axilla: Normal chest wall appearance and motion. Nontender with no deformity. No lesions are appreciated. Cardiovascular: Regular rate and rhythm with a normal S1 and S2. No gallops, murmurs, or rubs. Normal PMI, no JVD. No pulse deficits. Respiratory: Lungs have equal breath sounds bilaterally, clear to auscultation and percussion. No rales, rhonchi or wheezes noted. No increased work of breathing, no retractions or nasal flaring. 16:48 Back: No spinal tenderness. No costovertebral tenderness. Full range of motion. Skin: Warm, dry with normal turgor. Normal color with no rashes, no lesions, and no evidence of cellulitis. MS/ Extremity: Pulses equal, no cyanosis. Neurovascular intact. Full, normal range of motion. 16:48 Abdomen/GI: Inspection: abdomen appears normal, Bowel sounds: normal, Palpation: soft, mild abdominal tenderness, in the left upper quadrant and left lower quadrant, mass, is not appreciated, rebound tenderness, is not appreciated. 16:48 Neuro: Orientation: is normal, Motor: is normal, moves all fours, Sensation: is normal, no obvious gross deficits. Vital Signs: 14:52 BP 149 / 92; Pulse 119; Resp 19; Temp 98.6(O); Pulse Ox 98% on R/A; Weight 72.57 kg rb1 (R); Height 5 ft. 11 in. (180.34 cm) (R); Pain 9/10; 15:50 BP 149 / 76; Pulse 118; Resp 18; Pulse Ox 99% ; Pain 9/10; rb1 16:09 BP 141 / 94; Pulse 108; Resp 18; Pulse Ox 99% ; Pain 9/10; rb1 17:02 BP 138 / 81; Pulse 93; Resp 19; Pulse Ox 100% ; Pain 8/10; rb1 18:00 BP 146 / 78; Pulse 91; Resp 19; Pulse Ox 100% on R/A; rb1 20:00 BP 142 / 95; Pulse 82; Resp 18; Pulse Ox 100% on R/A; wh 14:52 Body Mass Index 22.32 (72.57 kg, 180.34 cm) rb1 MDM: 15:03 Patient medically screened. pm1 16:53 Data reviewed: vital signs. Data interpreted: Pulse oximetry: on room air is 99 %. pm1 Interpretation: normal. 16:54 Counseling: I had a detailed discussion with the patient and/or guardian regarding: the pm1 historical points, exam findings, and any diagnostic results supporting the discharge/admit diagnosis, lab results, radiology results. 17:17 Physician consultation: Carlos Enrique Miranda MD was called at 17:17, was contacted at 17:17, pm1 regarding admission, patient's condition, and will see patient in ED. 06/01 15:09 Order name: Basic Metabolic Panel; Complete Time: 16:19 pm1 06/01 15:09 Order name: CBC with Diff; Complete Time: 16:03 pm1 06/01 15:09 Order name: Creatinine for Radiology; Complete Time: 16:19 pm1 06/01 15:09 Order name: Hepatic Function; Complete Time: 16:19 pm1 06/01 15:09 Order name: Lipase; Complete Time: 16:19 pm1 06/01 15:10 Order name: ETOH Level; Complete Time: 16:40 pm1 06/01 15:20 Order name: CT Abd/Pelvis - IV Contrast Only; Complete Time: 16:54 pm1 06/01 17:54 Order name: CBC with Automated Diff EDMS 06/01 17:54 Order name: CBC with Automated Diff EDMS 06/01 17:54 Order name: Comprehensive Metabolic Panel EDMS 06/01 17:54 Order name: Comprehensive Metabolic Panel EDKS 06/01 15:09 Order name: IV Saline Lock; Complete Time: 16:02 pm1 06/01 15:09 Order name: Labs collected and sent; Complete Time: 16:02 pm1 06/01 17:54 Order name: CONS Pharmacy Consult EDMS 06/01 17:54 Order name: NPO EDMS 06/01 18:06 Order name: Social Service Consult EDKS Administered Medications: 13:50 Drug: NS 0.9% 1000 ml Route: IV; Rate: 1000 ml; Site: left forearm; rb1 17:00 Follow up: IV Status: Completed infusion [facility] 16:09 Drug: morphine 4 mg Route: IVP; Site: left forearm; rb1 16:20 Follow up: Response: No adverse reaction; Pain is decreased rb1 16:09 Drug: Zofran 4 mg Route: IVP; Site: left forearm; rb1 16:20 Follow up: Response: No adverse reaction; Nausea is decreased [facility] 17:11 Drug: NS 0.9% 1000 ml Route: IV; Rate: 1000 ml; Site: left forearm; rb1 20:38 Follow up: Response: No adverse reaction; IV Status: Infusion continued upon admission 17:11 Drug: morphine 4 mg Route: IVP; Site: left forearm; rb1 20:37 Follow up: Response: No adverse reaction; RASS: Alert and Calm (0) Disposition: 06/01/19 17:16 Hospitalization ordered by Carlos Enrique Miranda for Observation. 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 - Bed requested for Telemetry/MedSurg (observation). - Status is Observation. - Condition is Stable. - Problem is new. - Symptoms have improved. UTI on Admission? No Addendum: 06/03/2019 06:45 Co-signature as Attending Physician, Prateek Lacey MD I agree with the assessment and c holland plan of care. Signatures: Dispatcher [employer] EDKS Prateek Lacey MD MD cha Martinez, Eric em1 Eli Bruce, RN RN rb1 Gaudencio Neely, PRIMARY SCHOOL TEACHER LIBRARIAN PRIMARY SCHOOL TEACHER LIBRARIAN pm1 Ashlyn Isaac Corrections: (The following items were deleted from the chart) 06/01 18:30 17:16 Hospitalization Ordered by Carlos Enrique Miranda MD for Observation. Preliminary em1 diagnosis is Alcohol induced acute pancreatitis - Acute on chronic. Bed requested for Telemetry/MedSurg (observation). Status is Observation. Condition is Stable. Problem is new. Symptoms have improved. UTI on Admission? No. pm1 20:46 18:30 06/01/2019 17:16 Hospitalization Ordered by Carlos Enrique Miranda MD for Observation. 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 Bed requested for Telemetry/MedSurg (observation). Status is Observation. Condition is Stable. Problem is new. Symptoms have improved. UTI on Admission? No. em1
--- NOTE | 2019-06-01 17:17 | ER ---
Nurse's Notes [facility] Name: Jonathan Gutierrez Age: 33 yrs Sex: Male : 1985 Arrival Date: 06/01/2019 Time: 14:56 Bed 15 Private MD: Diagnosis: Alcohol induced acute pancreatitis-Acute on chronic Presentation: 06/01 14:52 Presenting complaint: EMS states: Pt. c/o abdominal pain. Has a history of pancreatitis rb1 and alcohol abuse. Last drink was today. NKDA, no medications. BP 173/92, normal for the pt per pt. report, P 132, 100% RA, T 97.8. Transition of care: patient was not received from another setting of care. Onset of symptoms is unknown. Risk Assessment: Do you want to hurt yourself or someone else? Patient reports no desire to harm self or others. Initial Sepsis Screen: Does the patient meet any 2 criteria? No. Patient's initial sepsis screen is negative. Does the patient have a suspected source of infection? No. Patient's initial sepsis screen is negative. Care prior to arrival: None. 14:52 Method Of Arrival: EMS: [facility] 14:52 Acuity: NEO 3 rb1 Triage Assessment: 14:52 General: Appears slender, Behavior is calm, cooperative, Smells of alcohol, Denies rb1 fever. Pain: Complains of pain in epigastric area Pain radiates to left upper quadrant Pain currently is 9 out of 10 on a pain scale. Neuro: Level of Consciousness is awake, alert, obeys commands, Oriented to person, place, time, situation. Cardiovascular: Capillary refill < 3 seconds is brisk in bilateral fingers. Respiratory: Airway is patent Respiratory effort is even, unlabored, Respiratory pattern is regular, symmetrical. GI: Reports diarrhea, nausea, vomiting, since x 3 days. : No signs and/or symptoms were reported regarding the genitourinary system. Derm: Skin is pink, warm \\T\\ dry. Musculoskeletal: Range of motion: intact in all extremities. Historical: - Allergies: 14:52 No Known Allergies; rb1 - Home Meds: 14:52 None [Active]; rb1 - PMHx: 14:52 ADD/ADHD; etoh abuse; Hypertension; liver "spot"; Pancreatitis; rb1 - PSHx: 14:52 None; rb1 - Immunization history:: Adult Immunizations up to date. - Social history:: Smoking status: Patient uses tobacco products, smokes one pack cigarettes per day. - Ebola Screening: : Patient negative for fever greater than or equal to 101.5 degrees Fahrenheit, and additional compatible Ebola Virus Disease symptoms. Screenin:52 Abuse screen: Denies threats or abuse. Nutritional screening: No deficits noted. rb1 Tuberculosis screening: No symptoms or risk factors identified. Fall Risk None identified. Assessment: 14:52 General: See triage assessment. rb1 16:21 Reassessment: Pt. went to CT. rb1 17:00 Reassessment: Patient appears in no apparent distress at this time. Patient and/or rb1 family updated on plan of care and expected duration. Pain level reassessed. Patient is alert, oriented x 3, equal unlabored respirations, skin warm/dry/pink. 18:00 Reassessment: Patient appears in no apparent distress at this time. Patient and/or rb1 family updated on plan of care and expected duration. Pain level reassessed. Patient is alert, oriented x 3, equal unlabored respirations, skin warm/dry/pink. 19:15 Reassessment: Patient appears in no apparent distress at this time. Patient and/or family updated on plan of care and expected duration. Pain level reassessed. Patient is alert, oriented x 3, equal unlabored respirations, skin warm/dry/pink. 19:15 GI: Bowel sounds present X 4 quads. Abd is soft. 20:36 Reassessment: Patient appears in no apparent distress at this time. No changes from previously documented assessment. Patient and/or family updated on plan of care and expected duration. Pain level reassessed. Patient is alert, oriented x 3, equal unlabored respirations, skin warm/dry/pink. Vital Signs: 14:52 BP 149 / 92; Pulse 119; Resp 19; Temp 98.6(O); Pulse Ox 98% on R/A; Weight 72.57 kg rb1 (R); Height 5 ft. 11 in. (180.34 cm) (R); Pain 9/10; 15:50 BP 149 / 76; Pulse 118; Resp 18; Pulse Ox 99% ; Pain 9/10; rb1 16:09 BP 141 / 94; Pulse 108; Resp 18; Pulse Ox 99% ; Pain 9/10; rb1 17:02 BP 138 / 81; Pulse 93; Resp 19; Pulse Ox 100% ; Pain 8/10; rb1 18:00 BP 146 / 78; Pulse 91; Resp 19; Pulse Ox 100% on R/A; rb1 20:00 BP 142 / 95; Pulse 82; Resp 18; Pulse Ox 100% on R/A; wh 14:52 Body Mass Index 22.32 (72.57 kg, 180.34 cm) rb1 ED Course: 14:52 Arm band placed on right wrist. rb1 14:52 Patient has correct armband on for positive identification. Bed in low position. Call rb1 light in reach. Side rails up X 1. Pulse ox on. NIBP on. 14:56 Patient arrived in ED. em1 14:59 Eli Bruce, RN is Primary Nurse. rb1 15:02 Gaudencio Neely NP is PHCP. pm1 15:02 Prateek Lacey MD is Attending Physician. pm1 15:03 Triage completed. rb1 15:34 Radiology exam delayed due to IV insertion attempt and/or patient not having mw3 appropriate IV at this time. 16:10 Radiology exam delayed due to IV insertion attempt and/or patient not having kw1 appropriate IV at this time. 16:36 CT Abd/Pelvis - IV Contrast Only In Process Unspecified. EDMS 17:16 Carlos Enrique Miranda MD is Hospitalizing Provider. pm1 19:00 Inserted saline lock: 20 gauge in left forearm, using aseptic technique. Blood wh collected. BY Eli HOLLAND. 20:41 No provider procedures requiring assistance completed. Patient admitted, IV remains in wh place. Administered Medications: 13:50 Drug: NS 0.9% 1000 ml Route: IV; Rate: 1000 ml; Site: left forearm; rb1 17:00 Follow up: IV Status: Completed infusion rb1 16:09 Drug: morphine 4 mg Route: IVP; Site: left forearm; rb1 16:20 Follow up: Response: No adverse reaction; Pain is decreased rb1 16:09 Drug: Zofran 4 mg Route: IVP; Site: left forearm; rb1 16:20 Follow up: Response: No adverse reaction; Nausea is decreased rb1 17:11 Drug: NS 0.9% 1000 ml Route: IV; Rate: 1000 ml; Site: left forearm; rb1 20:38 Follow up: Response: No adverse reaction; IV Status: Infusion continued upon admission 17:11 Drug: morphine 4 mg Route: IVP; Site: left forearm; rb1 20:37 Follow up: Response: No adverse reaction; RASS: Alert and Calm (0) Outcome: 17:16 Decision to Hospitalize by Provider. pm1 20:43 Admitted to [facility] accompanied by nurse, via wheelchair, room 401, with chart, Report called to Anthony HOLLAND 20:43 Condition: stable 20:43 Instructed on the need for admit. 20:46 Patient left the ED. Signatures: Dispatcher [employer] Elliott Vee em1 Eli Bruce, RN RN rb1 Gaudencio Neely, DIRECTOR OF SALES SUPPORT DIRECTOR OF SALES SUPPORT pm1 Ashlyn Isaac Megan Pacheco kw1 Tanja Villarreal mw3 Corrections: (The following items were deleted from the chart) 15:52 15:52 Radiology exam delayed due to IV insertion attempt and/or patient not having kw1 appropriate IV at this time. kw1
[2019-06-01] MEDS ORDERED: ACETAMINOPHEN 500 MG TAB PO PRN (17:50)
[2019-06-01] MEDS ORDERED: SODIUM CHLORIDE 0.9% 10ML INJ IV PRN (17:52)
--- NOTE | 2019-06-01 17:59 | P.HP ---
Certification for Inpatient Patient admitted to: Inpatient With expected LOS: >2 Midnights Patient will require the following post-hospital care: None Practitioner: I am a practitioner with admitting privileges, knowledge of patient current condition, hospital course, and medical plan of care. Services: Services provided to patient in accordance with Admission requirements found in Title 42 Section 412.3 of the Code of Federal Regulations Patient History Date of Service: 06/01/19 Reason for admission: Abdominal Pain History of Present Illness: 33-year-old male with past medical history of pancreatitis , alcohol abuse Came to ER with worsening of abdominal pain which started yesterday. Pain is located in the epigastrium and umbilical region, sharp, 10/10 in severity, nonradiating, associated with nausea but no vomiting. Denies any fever or chills. Has been drinking alcohol. Denies any chest pain or shortness of breath. patient was seen in the assessed in the ER and was found to have acute pancreatitis and duodenitis and was admitted for further management. Allergies No Known Allergies Allergy (Unverified 02/19/19 01:24) Home medications list reviewed: Yes Home Medications: Folic Acid 1 mg PO DAILY #90 tablet 02/25/19 Furosemide [Lasix] 20 mg PO DAILY PRN #30 tab 02/25/19 Lipase/Protease/Amylase [Creon Dr 12,000 Units Capsule] 1 cap PO TIDWMHS #90 cap 02/25/19 Pantoprazole [Protonix Tab*] 40 mg PO DAILYAC #30 tab 02/25/19 Thiamine HCl 100 mg PO DAILY #90 tablet 02/25/19 - Past Medical/Surgical History Diabetic: No Past Medical History: Reviewed- Non-Contributory -: Chronic pancreatitis -: Fatty liver -: Alcohol abuse -: Tobacco abuse Past Surgical History: Reviewed- Non-Contributory -: tonsillectomy Psychosocial/ Personal History: Patient is single - Family History Family History: Reviewed- Non-Contributory - Social History Smoking Status: Current every day smoker Alcohol use: Yes CD- Drugs: No Caffeine use: No Review of Systems 10-point ROS is otherwise unremarkable Physical Examination - Vital Signs Temperature: 98 F Blood Pressure: 118/68 Pulse: 98 Respirations: 22 - Physical Exam General: Alert, In no apparent distress HEENT: Atraumatic, Normocephalic Neck: Supple, 2+ carotid pulse no bruit Respiratory: Clear to auscultation bilaterally, Normal air movement Cardiovascular: Normal pulses, Regular rate/rhythm Capillary refill: <2 Seconds Gastrointestinal: Non-distended, W/out hepatosplenomegaly, Tenderness Musculoskeletal: No swelling, No contractures Integumentary: No rashes, No significant lesion Neurological: Normal gait, Normal strength at 5/5 x4 extr Lymphatics: No axilla or inguinal lymphadenopathy Urinary: Other (No urinary bladder distention) External genitalia: Deferred Rectal: Deferred - Studies Laboratory Data (last 24 hrs) 06/01/19 15:40: Creatinine 0.81 06/01/19 15:40: WBC 6.6, Hgb 13.1 L, Hct 37.8 L, Plt Count 215 06/01/19 15:40: Sodium 148 H, Potassium 3.5, BUN 12, Creatinine 0.80, Glucose 100, Total Bilirubin 0.1 L, AST 44 H, ALT 38, Alkaline Phosphatase 120 H, Lipase 175 Assessment and Plan - Problems (Diagnosis) (1) Alcoholic pancreatitis Current Visit: No Status: Acute Plan: Pain control Will keep the patient NPO IV hydration Advised alcohol cessation Monitor closely (2) Alcohol abuse Current Visit: Yes Status: Chronic Plan: Advice about alcohol cessation will get a service consult DT precautions Start on banana bag (3) Smoker Current Visit: Yes Status: Chronic Plan: Advised smoking cessation (4) Duodenitis Current Visit: Yes Status: Acute Plan: start on PPI probably induced by alcohol Monitor LFTs closely Discharge Plan: Home Plan to discharge in: 48 Hours - Advance Directives Does patient have a Living Will: No Does patient have a Durable POA for Healthcare: No Time Spent Managing Pts Care (In Minutes): 45
[2019-06-01] MEDS: Ringers Lactate 1,000 ML IV SCH (18:00)
[2019-06-01] MEDS: MORPHINE 2 MG/ML SYR IV PRN ×2 (18:58→22:36)
[2019-06-01] MEDS ORDERED: PANTOPRAZOLE 40 MG INJ ONE (20:24)
[2019-06-01] MEDS: ONDANSETRON 4 MG/2 ML VIAL IV PRN (20:27)
[2019-06-01] MEDS: PANTOPRAZOLE 40 MG INJ IVP SCH (20:27)
[2019-06-01] MEDS ORDERED: LORazepam 2 MG/ML VIAL IV PRN (21:35)
[2019-06-01] MEDS ORDERED: FLUMAZENIL 0.1 MG/ML (5 mL VIAL) IV PRN (21:35)
[2019-06-01] MEDS: LORazepam 2 MG/ML VIAL IV SCH (22:01)
[2019-06-01 23:21] VITALS: BMI 24.0
[2019-06-01] MEDS: NICOTINE 21 MG/PAT TD SCH (23:37)
[2019-06-02] MEDS: LORazepam 2 MG/ML VIAL IV SCH ×4 (02:00→10:00)
[2019-06-02] MEDS: Ringers Lactate 1,000 ML IV SCH ×4 (02:08→22:36)
[2019-06-02] MEDS: MORPHINE 2 MG/ML SYR IV PRN ×5 (03:17→20:08)
[2019-06-02 06:16] LABS: Absolute Lymphocytes (CBC) 1.4 K/uL (0.7-4.9); Basophils % 0.6 % (0-1.3); Hematocrit 32.4 % (39.6-49.0); Lymphocytes % 30.7 % (15.3-44.8); MPV 7.3 fL (7.6-11.3); RBC Red Blood Cell Count 3.71 M/uL (4.33-5.43)
[2019-06-02 06:34] LABS: ALT/SGPT 30 U/L (12-78); AST/SGOT 32 U/L (15-37); Albumin 3.2 g/dL (3.4-5.0); Alkaline Phosphatase 94 U/L (45-117); BUN Blood Urea Nitrogen 12 mg/dL (7-18); Bicarbonate 28 mmol/L (21-32); Bilirubin Total 0.2 mg/dL (0.2-1.0); Glucose Level 89 mg/dL (74-106); Potassium 3.7 mmol/L (3.5-5.1); Protein, Total 6.2 g/dL (6.4-8.2); Sodium Level 144 mmol/L (136-145)
[2019-06-02] MEDS: NICOTINE 21 MG/PAT TD SCH (07:51)
[2019-06-02] MEDS: PANTOPRAZOLE 40 MG INJ IVP SCH ×2 (07:57→20:08)
--- NOTE | 2019-06-02 09:28 | P.PN ---
Subjective Date of Service: 06/02/19 Chief Complaint: Abdominal Pain Subjective: No new changes Still having lot of pain Denies any nausea vomiting Denies any suicidal ideation at this time Review of Systems 10-point ROS is otherwise unremarkable ENT: Unremarkable Respiratory: Unremarkable Physical Examination - Vital Signs Temperature: 98.6 F Blood Pressure: 153/81 Pulse: 104 Respirations: 18 Pulse Ox (%): 100 - Physical Exam General: Alert, In no apparent distress HEENT: Atraumatic, Normocephalic Neck: Supple, 2+ carotid pulse no bruit Respiratory: Clear to auscultation bilaterally, Normal air movement Cardiovascular: Regular rate/rhythm, Normal S1 S2 Capillary refill: <2 Seconds Gastrointestinal: Non-distended, W/out hepatosplenomegaly, Tenderness Musculoskeletal: No clubbing, No swelling Integumentary: No rashes Neurological: Normal speech, Normal strength at 5/5 x4 extr Lymphatics: No axilla or inguinal lymphadenopathy Urinary: Other (No bladder distention) External genitalia: Deferred Rectal: Deferred - Studies Laboratory Data (last 24 hrs) 06/01/19 15:40: Creatinine 0.81 06/01/19 15:40: WBC 6.6, Hgb 13.1 L, Hct 37.8 L, Plt Count 215 06/01/19 15:40: Sodium 148 H, Potassium 3.5, BUN 12, Creatinine 0.80, Glucose 100, Total Bilirubin 0.1 L, AST 44 H, ALT 38, Alkaline Phosphatase 120 H, Lipase 175 Assessment & Plan - Problems (Diagnosis) (1) Alcoholic pancreatitis Current Visit: No Status: Acute Plan: Pain control Patient was NPO IV hydration start on full liquid diet Advised alcohol cessation Monitor closely (2) Alcohol abuse Current Visit: Yes Status: Chronic Plan: Advice about alcohol cessation will get a service consult DT precautions Start on banana bag get a psych consult (3) Smoker Current Visit: Yes Status: Chronic Plan: Advised smoking cessation (4) Duodenitis Current Visit: Yes Status: Acute Plan: start on PPI probably induced by alcohol Monitor LFTs closely Discharge Plan: Home Plan to discharge in: 24 Hours Time Spent Managing Pts Care (In Minutes): 40
[2019-06-02] MEDS ORDERED: KETOROLAC 30 MG/ML INJ IV PRN (10:53)
[2019-06-02] MEDS: chlordiazePOXIDE HCl 25 MG CAP PO SCH ×2 (12:40→18:33)
[2019-06-02] MEDS: ONDANSETRON 4 MG/2 ML VIAL IV PRN (17:06)
[2019-06-02] MEDS ORDERED: HYDROMORPHONE HCL 1 MG/ML INJ IV ONE (22:29)
[2019-06-03] MEDS: chlordiazePOXIDE HCl 25 MG CAP PO SCH ×5 (00:25→23:16)
[2019-06-03] MEDS: MORPHINE 2 MG/ML SYR IV PRN ×6 (00:40→20:51)
[2019-06-03 01:21] LABS: Urine Appearance CLEAR; Urine Bilirubin NEGATIVE (NEG); Urine Blood TRACE (NEG); Urine Color YELLOW; Urine Glucose NEGATIVE (NEG); Urine Microscopic Reflex ORDER UMIC; Urine Protein NEGATIVE (NEG); Urine Specific Gravity 1.015 (1.005-1.030); Urine Urobilinogen 0.2 mg/dL (0.2-1.0)
[2019-06-03 01:56] LABS: Urine Bacteria <20 /HPF (NONE SEEN); Urine Culture Reflex Order NOT NEEDED; Urine RBC <5 /HPF (NONE SEEN)
[2019-06-03] MEDS: Ringers Lactate 1,000 ML IV SCH ×4 (04:12→22:10)
[2019-06-03] MEDS: NICOTINE 21 MG/PAT TD SCH (07:38)
[2019-06-03] MEDS: PANTOPRAZOLE 40 MG INJ IVP SCH ×2 (07:39→20:19)
--- NOTE | 2019-06-03 08:23 | CON ---
History Of Present Illness: Mr. Jonathan Gutierrez is a 33-year-old male with a history of alcohol dependence. Patient was admitted via the ER on presentation via the EMS services on account of severe abdominal pain. He was found to be inebriated with a blood alcohol level of 427 obtained on presentation to the ER. CT scan of the abdomen revealed mild pancreatitis. Patient was subsequently stabilized and admitted to medical floor. Psychiatry is consulted to evaluate patient on his initial clam of wanting to drink himself to and alcohol detox. On evaluation this morning, patient was sitting up in bed eating a bowl of soup. Patient states he is a chronic drinker, states he started drinking sparingly since age 13 and started drinking heavily since age 26. Patient states he drinks about a gallon of Vodka a day, states he craves alcoholic beverages everyday. States he starts drinking immediately he gets off work. He states he last drank the night of his presentation. Patient states when he starts drinking he losses control and unable to stop until he finishes what ever he his drinking which is usually a lot. He states that he has no control of his drinking and he does not know when to stop. He states he spend a lot of time and resource trying to maintain his drinking habit. Patient states he does skip work just to say home and drink. He states his drinking habit has lead discord between him and his parents. States he has a 9 year old daughter who lives with his parent and he does not get to see her frequently. He admit having history of blackouts, alcohol withdrawal seizures and DTS about a year ago. He denies having history of depression, hence he denies depressed mood for most part of the day, anhedonia feeling hopeless or helpless, decrease motivation and lack of energy. Patient also denies suicidal and homicidal ideation states he has never tried to hurt himself and has no intent or plan to do so. He did admit to history anxiety which he describes as getting nervous and shy in a social event which triggers his urge to drink as drinking make him more sociable. He denies history of panic attacks. No history of psychotic symptoms. Patient admits to feeling shaky and sweaty, but no other significant withdrawal symptoms. Patient is currently on Ativan 2 mg IV q6hr x12 doses(has received 3 doses) Ativan 1 mg p.o. p.r.n. and Librium 25 mg p.o. q.6 hourly. Patient denies any other history of substance abuse. He continues complaint of abdominal pain Physical Examination: Vital Signs: Blood pressure is 183/88, respiratory rate is 18, temperature is 98, pulse is 120, and O2 saturation is 100% on room air, Pain 7/10 Mental Status Examination: Patient is a appropriately dressed male with poor grooming and hygiene sitting in bed and eating a plate of soup, was not in any obvious acute cardiopulmonary distress. He is alert and oriented x2. Fidgety with no other stereotypic movement observed. Concentration and memory is fair. Mood he described as anxious. Affect is mood congruent. Thought process is linear, at times circumstantial. Thought contents; no delusions, no suicidal or homicidal ideation, no rumination and obsessions. Insight and judgement: Poor. Fund of knowledge fair and Language is fair suicidal risk assessment is low Diagnoses: 1. Alcohol withdrawal. 2. Alcohol-induced anxiety disorder. 3. Alcohol use disorder severe Plan: 1. Recommend to continue Alcohol detox 2. We will continue Librium 25 mg p.o. q.6 hourly. 2. Discontinue Ativan 1 mg p.o. q8 hourly p.r.n. for severe anxiety. 3. Discontinue Ativan 2 mg IV q.6 hourly. 4. Discussed recommendations with managing team. Recommend patient to followup with psychiatric 2 weeks after discharge for further evaluation and medication management. Recommend AA meetings as well as rehab. Thank you for the consult MARNI/GABRIELA Voice ID: [id number] Report ID: [id number] DAMEON
[2019-06-03] MEDS: ONDANSETRON 4 MG/2 ML VIAL IV PRN (08:36)
--- NOTE | 2019-06-03 09:40 | P.PN ---
Subjective Date of Service: 06/03/19 Chief Complaint: Abdominal Pain Still having lot of pain Denies any nausea vomiting Review of Systems 10-point ROS is otherwise unremarkable ENT: Unremarkable Respiratory: Unremarkable Physical Examination - Vital Signs Temperature: 98.1 F Blood Pressure: 148/64 Pulse: 84 Respirations: 18 Pulse Ox (%): 100 - Physical Exam General: Alert, In no apparent distress HEENT: Atraumatic, Normocephalic Neck: Supple, 2+ carotid pulse no bruit Respiratory: Clear to auscultation bilaterally, Normal air movement Cardiovascular: Normal pulses, Regular rate/rhythm Capillary refill: <2 Seconds Gastrointestinal: Tenderness Musculoskeletal: No clubbing, No swelling Integumentary: No rashes Neurological: Normal speech, Normal strength at 5/5 x4 extr Lymphatics: No axilla or inguinal lymphadenopathy External genitalia: Deferred Rectal: Deferred Assessment & Plan - Problems (Diagnosis) (1) Alcoholic pancreatitis Current Visit: No Status: Acute Plan: Pain control started on mechanical soft diet Advised alcohol cessation Monitor closely (2) Alcohol abuse Current Visit: Yes Status: Chronic Plan: Advice about alcohol cessation Social service consulted DT precautions Appreciate psych consult (3) Smoker Current Visit: Yes Status: Chronic Plan: Advised smoking cessation (4) Duodenitis Current Visit: Yes Status: Acute Plan: on PPI probably induced by alcohol Monitor LFTs closely Discharge Plan: Home Plan to discharge in: 48 Hours Time Spent Managing Pts Care (In Minutes): 42
[2019-06-03] MEDS: HYDROCODONE/APAP 10/325 TAB PO PRN ×4 (09:56→22:33)
[2019-06-03 21:29] VITALS: O2SAT 97
[2019-06-03] MEDS ORDERED: LORazepam 2 MG/ML VIAL IV SCH (21:36)
[2019-06-03] MEDS ORDERED: METOPROLOL TARTRATE 5 MG/5 ML INJ IV ONE ×2 (22:01→22:06)
[2019-06-04] MEDS: MORPHINE 2 MG/ML SYR IV PRN ×3 (00:22→08:45)
[2019-06-04] MEDS: HYDROCODONE/APAP 10/325 TAB PO PRN ×3 (02:11→10:23)
[2019-06-04 04:19] LABS: Absolute Lymphocytes (CBC) 1.4 K/uL (0.7-4.9); Basophils % 0.7 % (0-1.3); Hematocrit 33.6 % (39.6-49.0); Lymphocytes % 36.4 % (15.3-44.8); MPV 7.2 fL (7.6-11.3); RBC Red Blood Cell Count 3.83 M/uL (4.33-5.43)
[2019-06-04 04:58] LABS: ALT/SGPT 33 U/L (12-78); AST/SGOT 34 U/L (15-37); Albumin 3.3 g/dL (3.4-5.0); Alkaline Phosphatase 105 U/L (45-117); BUN Blood Urea Nitrogen 7 mg/dL (7-18); Bicarbonate 30 mmol/L (21-32); Bilirubin Total 0.3 mg/dL (0.2-1.0); Glucose Level 113 mg/dL (74-106); Potassium 3.6 mmol/L (3.5-5.1); Protein, Total 6.2 g/dL (6.4-8.2); Sodium Level 142 mmol/L (136-145)
[2019-06-04] MEDS: Ringers Lactate 1,000 ML IV SCH (05:06)
[2019-06-04] MEDS: chlordiazePOXIDE HCl 25 MG CAP PO SCH (05:06)
[2019-06-04] MEDS: PANTOPRAZOLE 40 MG INJ IVP SCH (08:45)
[2019-06-04 08:51] VITALS: BP 144/95; TEMP 98.2
--- NOTE | 2019-06-04 08:55 | P.DS ---
Admission Date: 06/01/19 Discharge Date: 06/04/19 Disposition: ROUTINE DISCHARGE Discharge Condition: GOOD Reason for Admission: Abdominal Pain - Problems (1) Alcoholic pancreatitis Status: Acute (2) Alcohol abuse Status: Chronic (3) Smoker Status: Chronic (4) Duodenitis Status: Acute Brief History of Present Illness: 33-year-old male with past medical history of pancreatitis , alcohol abuse Came to ER with worsening of abdominal pain which started yesterday. Pain is located in the epigastrium and umbilical region, sharp, 10/10 in severity, nonradiating, associated with nausea but no vomiting. Denies any fever or chills. Has been drinking alcohol. Denies any chest pain or shortness of breath. patient was seen in the assessed in the ER and was found to have acute pancreatitis and duodenitis and was admitted for further management. Hospital Course: He was admitted and was monitor under telemetry. He was started on pain medications initially kept on NPO, started on IV hydration. It was discussed extensively with him about the need to quit alcohol. As hiss pain improved he was started on a full liquid diet and advanced as tolerated. He was also started on DT precautions namely banana bag and thiamine, folic acid and multivitamins. He was also start on PPI for duodenitis. He has responded well to the treatment and the pain was improved well and he was tolerating p.o.. library services coordinator was consulted for possible rehab from alcohol. psychiatry was also consulted as he was voicing suicidal ideations in the ER. Psychiatry recommended outpatient follow up. The patient is being discharged home today in a stable condition with advice to follow up with PCP in 1 week and also with psychiatrist in 1-2 weeks Vital Signs/Physical Exam: Temp Pulse Resp BP Pulse Ox 98.2 F 79 20 144/95 H 97 06/04/19 08:00 06/04/19 08:00 06/04/19 08:45 06/04/19 08:00 06/04/19 08:45 General: Alert, In no apparent distress HEENT: Atraumatic, Normocephalic Neck: Supple, 2+ carotid pulse no bruit Respiratory: Clear to auscultation bilaterally Cardiovascular: No edema, Regular rate/rhythm Gastrointestinal: Soft and benign Musculoskeletal: No clubbing Integumentary: No tenderness/swelling Neurological: Normal strength at 5/5 x4 extr Laboratory Data at Discharge: WBC 3.7 K/uL (4.3-10.9) L D 06/04/19 04:00 Hgb 11.8 g/dL (13.6-17.9) L 06/04/19 04:00 Hct 33.6 % (39.6-49.0) L 06/04/19 04:00 Plt Count 144 K/uL (152-406) L 06/04/19 04:00 Sodium 142 mmol/L (136-145) 06/04/19 04:00 Potassium 3.6 mmol/L (3.5-5.1) 06/04/19 04:00 BUN 7 mg/dL (7-18) 06/04/19 04:00 Creatinine 0.71 mg/dL (0.55-1.3) 06/04/19 04:00 Glucose 113 mg/dL (74-106) H 06/04/19 04:00 Total Bilirubin 0.3 mg/dL (0.2-1.0) 06/04/19 04:00 AST 34 U/L (15-37) 06/04/19 04:00 ALT 33 U/L (12-78) 06/04/19 04:00 Alkaline Phosphatase 105 U/L (45-117) 06/04/19 04:00 Lipase 175 U/L (73-393) 06/01/19 15:40 Home Medications: Folic Acid 1 mg PO DAILY #30 tablet 06/04/19 Hydrocodone 10/APAP 325 [[place] 10/325*] 1 tab PO Q4H PRN #20 tab 06/04/19 Pantoprazole [Protonix Tab*] 40 mg PO DAILY #30 tab 06/04/19 Thiamine HCl 100 mg PO DAILY #30 tablet 06/04/19 chlordiazePOXIDE HCl [Librium*] 25 mg PO Q8H #21 cap 06/04/19 New Medications: chlordiazePOXIDE HCl [Librium*] 25 mg PO Q8H #21 cap Folic Acid 1 mg PO DAILY #30 tablet Hydrocodone 10/APAP 325 [[place] 10/325*] 1 tab PO Q4H PRN #20 tab PRN Reason: Pain Scale 8-10 (Severe) Pantoprazole [Protonix Tab*] 40 mg PO DAILY #30 tab Thiamine HCl 100 mg PO DAILY #30 tablet Time spent managing pt's care (in minutes): 32
[2019-06-04] MEDS: NICOTINE 21 MG/PAT TD SCH (08:57)
== END 2019-06-04 10:22 | disposition home or self-care (01) | DRG 439 ==
LOC: ER 14:53 → ERHOLD 17:51 → 4TH 20:43
PROVIDERS: ADMIT Family Medicine; ATTEND Family Medicine
DX: K85.20 Alcohol induced acute pancreatitis without necrosis or infection (principal); F10.239 Alcohol dependence with withdrawal, unspecified; F10.180 Alcohol abuse with alcohol-induced anxiety disorder; K29.80 Duodenitis without bleeding
CPT/HCPCS: 36415; 74177; 80048; 80053; 80076; 80320; 81003; 81015; 83690; 85025; 96361; 96374; 96375; 99285; C9113; J1170; J2270; J2405; J7030; J7120; Q9967

== ENCOUNTER 2019-06-09 11:09 | Emergency (ER) | payer SELFPAY ==
--- OUTSIDE RECORDS SUMMARY | 2019-06-09 11:47 | XMS REPORT ---
:1985 [facility] [address] [place] [address] Care Team Providers Name Role Phone DMITRI [...] Value Reference Range Comments LIPASE (BEAKER) (test tyzd=098) 257 U/L 8-78 BASIC METABOLIC [id number] 03:05:00 Test Item Value Reference Range Comments SODIUM (BEAKER) (test 136 meq/L 136-145 vpoo=914) POTASSIUM (BEAKER) (test 4.5 meq/L 3.5-5.1 Specimen slightly gzya=308) hemolyzed CHLORIDE (BEAKER) (test 104 meq/L 98-107 cexf=785) CO2 (BEAKER) (test 25 meq/L 22-29 hfgd=866) BLOOD UREA NITROGEN 5 mg/dL 7-21 (BEAKER) (test ejps=567) CREATININE (BEAKER) (test 0.57 mg/dL 0.57-1.25 Specimen slightly gcns=232) hemolyzed GLUCOSE RANDOM (BEAKER) 87 mg/dL 70-105 (test opok=175) CALCIUM (BEAKER) (test 8.4 mg/dL 8.4-10.2 dncv=659) EGFR (BEAKER) (test 166 mL/min/1.73 sq m ESTIMATED GFR IS NOT xxsj=4586) ACCURATE CREATININE CLEARANCE IN PREDICTING GLOMERULAR FILTRATION RATE. ESTIMATED GFR IS NOT APPLICABLE FOR DIALYSIS PATIENTS. BASIC METABOLIC [id number] 04:41:00 Test Item Value Reference Range Comments SODIUM (BEAKER) (test 134 meq/L 136-145 rrwb=635) POTASSIUM (BEAKER) (test 3.9 meq/L 3.5-5.1 Specimen slightly hdbp=543) hemolyzed CHLORIDE (BEAKER) (test 102 meq/L 98-107 odcp=405) CO2 (BEAKER) (test 26 meq/L 22-29 mnla=448) BLOOD UREA NITROGEN 3 mg/dL 7-21 (BEAKER) (test eiec=799) CREATININE (BEAKER) (test 0.50 mg/dL 0.57-1.25 Specimen slightly rdxi=612) hemolyzed GLUCOSE RANDOM (BEAKER) 95 mg/dL 70-105 (test pbtm=568) CALCIUM (BEAKER) (test 7.9 mg/dL 8.4-10.2 ifvj=094) EGFR (BEAKER) (test 193 mL/min/1.73 sq m ESTIMATED GFR IS NOT iamh=7341) ACCURATE CREATININE CLEARANCE IN PREDICTING GLOMERULAR FILTRATION RATE. ESTIMATED GFR IS NOT APPLICABLE FOR DIALYSIS PATIENTS. [id number] 04:31:00 Test Item Value Reference Range Comments LIPASE (BEAKER) (test azwz=025) 334 U/L 8-78 TROPONIN [id number] 03:00:00 Test Item Value Reference Range Comments TROPONIN I (BEAKER) (test vpjg=649) < ng/mL 0.00-0.03 Troponin I (TnI) levels [...] failure, acidosis, acute neurological disease, and persistent tachyarrhythmia.[id number] 02:54:00 Test Item Value Reference Range Comments MAGNESIUM (BEAKER) (test 1.9 mg/dL 1.6-2.6 Specimen slightly hemolyzed snfe=816) BASIC METABOLIC [id number] 02:54:00 Test Item Value Reference Range Comments SODIUM (BEAKER) (test 136 meq/L 136-145 fccn=974) POTASSIUM (BEAKER) (test 3.8 meq/L 3.5-5.1 Specimen slightly wrfe=675) hemolyzed CHLORIDE (BEAKER) (test 100 meq/L 98-107 emzw=549) CO2 (BEAKER) (test 28 meq/L 22-29 eudk=224) BLOOD UREA NITROGEN 3 mg/dL 7-21 (BEAKER) (test jbpe=805) CREATININE (BEAKER) (test 0.56 mg/dL 0.57-1.25 Specimen slightly wkbs=234) hemolyzed GLUCOSE RANDOM (BEAKER) 111 mg/dL 70-105 (test kyab=144) CALCIUM (BEAKER) (test 8.3 mg/dL 8.4-10.2 hgjo=272) EGFR (BEAKER) (test 169 mL/min/1.73 sq m ESTIMATED GFR IS NOT imru=6100) ACCURATE CREATININE CLEARANCE IN PREDICTING GLOMERULAR FILTRATION RATE. ESTIMATED GFR IS NOT APPLICABLE FOR DIALYSIS PATIENTS. [id number] 02:54:00 Test Item Value Reference Range Comments LIPASE (BEAKER) (test fcyd=791) 755 U/L 8-78 CBC W/PLT COUNT & AUTO [id number] 02:33:00 Test Item Value Reference Range Comments WHITE BLOOD CELL COUNT (BEAKER) (test qpyv=914) 5.7 K/ L 3.5-10.5 RED BLOOD CELL COUNT (BEAKER) (test xxym=609) 3.90 M/ L 4.63-6.08 HEMOGLOBIN (BEAKER) (test objn=108) 12.0 GM/DL 13.7-17.5 HEMATOCRIT (BEAKER) (test hljb=649) 36.5 % 40.1-51.0 MEAN CORPUSCULAR VOLUME (BEAKER) (test ikvt=920) 93.6 fL 79.0-92.2 MEAN CORPUSCULAR HEMOGLOBIN (BEAKER) (test 30.8 pg 25.7-32.2 asnf=716) MEAN CORPUSCULAR HEMOGLOBIN CONC (BEAKER) (test 32.9 GM/DL 32.3-36.5 ktsk=209) RED CELL DISTRIBUTION WIDTH (BEAKER) (test 13.6 % 11.6-14.4 caqq=433) PLATELET COUNT (BEAKER) (test lvwv=158) 155 K/CU MM 150-450 MEAN PLATELET VOLUME (BEAKER) (test aarw=156) 9.4 fL 9.4-12.4 NUCLEATED RED BLOOD CELLS (BEAKER) (test 0 /100 WBC 0-0 fpho=142) NEUTROPHILS RELATIVE PERCENT (BEAKER) (test 70 % ecer=387) LYMPHOCYTES RELATIVE PERCENT (BEAKER) (test 19 % wjao=990) MONOCYTES RELATIVE PERCENT (BEAKER) (test 8 % lahr=945) EOSINOPHILS RELATIVE PERCENT (BEAKER) (test 2 % jobf=322) BASOPHILS RELATIVE PERCENT (BEAKER) (test 1 % gqcf=102) NEUTROPHILS ABSOLUTE COUNT (BEAKER) (test 4.03 K/ L 1.78-5.38 dldw=973) LYMPHOCYTES ABSOLUTE COUNT (BEAKER) (test 1.07 K/ L 1.32-3.57 xljc=457) MONOCYTES ABSOLUTE COUNT (BEAKER) (test 0.45 K/ L 0.30-0.82 xipx=209) EOSINOPHILS ABSOLUTE COUNT (BEAKER) (test 0.12 K/ L 0.04-0.54 ktnm=530) BASOPHILS ABSOLUTE COUNT (BEAKER) (test 0.05 K/ L 0.01-0.08 ouwm=126) IMMATURE GRANULOCYTES-RELATIVE PERCENT (BEAKER) 0 % 0-1 (test qyfd=7872) RAD, CHEST, 1 VIEW, NON [id number] 02:26:00Reason for exam:->pleuritic chest painShould this be [...] To [place] MDReport Verified Date/Time: 03/22/2019 02:26:18 [id number] 08:35:00 Test Item Value Reference Range Comments MAGNESIUM (BEAKER) (test 1.4 mg/dL 1.6-2.6 Specimen slightly hemolyzed aoiz=704) BASIC METABOLIC [id number] 08:35:00 Test Item Value Reference Range Comments SODIUM (BEAKER) (test 138 meq/L 136-145 zgfa=868) POTASSIUM (BEAKER) (test 3.7 meq/L 3.5-5.1 Specimen slightly bzwr=488) hemolyzed CHLORIDE (BEAKER) (test 102 meq/L 98-107 wsyt=632) CO2 (BEAKER) (test 23 meq/L 22-29 bwkq=105) BLOOD UREA NITROGEN 4 mg/dL 7-21 (BEAKER) (test audh=238) CREATININE (BEAKER) (test 0.48 mg/dL 0.57-1.25 Specimen slightly oezw=998) hemolyzed GLUCOSE RANDOM (BEAKER) 53 mg/dL 70-105 (test exjr=290) CALCIUM (BEAKER) (test 8.1 mg/dL 8.4-10.2 aolb=722) EGFR (BEAKER) (test 202 mL/min/1.73 sq m ESTIMATED GFR IS NOT ueec=2751) ACCURATE CREATININE CLEARANCE IN PREDICTING GLOMERULAR FILTRATION RATE. ESTIMATED GFR IS NOT APPLICABLE FOR DIALYSIS PATIENTS. HEPATIC FUNCTION [id number] 08:35:00 Test Item Value Reference Range Comments TOTAL PROTEIN (BEAKER) (test 6.2 gm/dL 6.0-8.3 Specimen slightly hemolyzed utss=912) ALBUMIN (BEAKER) (test 2.7 g/dL 3.5-5.0 Specimen slightly hemolyzed xtpc=5923) BILIRUBIN TOTAL (BEAKER) (test 0.5 mg/dL 0.2-1.2 Specimen slightly hemolyzed fjee=071) BILIRUBIN DIRECT (BEAKER) (test 0.3 mg/dL 0.1-0.5 Specimen slightly hemolyzed uwbs=677) ALKALINE PHOSPHATASE (BEAKER) 151 U/L 40-150 (test htry=371) AST (SGOT) (BEAKER) (test 64 U/L 5-34 Specimen slightly hemolyzed mohn=757) ALT (SGPT) (BEAKER) (test 21 U/L 6-55 Specimen slightly hemolyzed gtuc=377) [id number] 08:35:00 Test Item Value Reference Range Comments LIPASE (BEAKER) (test bbqg=749) 242 U/L 8-78 CBC W/PLT COUNT & AUTO [id number] 06:25:00 Test Item Value Reference Range Comments WHITE BLOOD CELL COUNT (BEAKER) (test uuot=206) 4.2 K/ L 3.5-10.5 RED BLOOD CELL COUNT (BEAKER) (test kiwz=988) 4.14 M/ L 4.63-6.08 HEMOGLOBIN (BEAKER) (test cvgx=459) 12.7 GM/DL 13.7-17.5 HEMATOCRIT (BEAKER) (test upbj=699) 39.8 % 40.1-51.0 MEAN CORPUSCULAR VOLUME (BEAKER) (test xpfr=673) 96.1 fL 79.0-92.2 MEAN CORPUSCULAR HEMOGLOBIN (BEAKER) (test 30.7 pg 25.7-32.2 cuvf=111) MEAN CORPUSCULAR HEMOGLOBIN CONC (BEAKER) (test 31.9 GM/DL 32.3-36.5 jlmg=428) RED CELL DISTRIBUTION WIDTH (BEAKER) (test 13.5 % 11.6-14.4 obah=925) PLATELET COUNT (BEAKER) (test qjip=558) 186 K/CU MM 150-450 MEAN PLATELET VOLUME (BEAKER) (test xdqc=474) 10.9 fL 9.4-12.4 NUCLEATED RED BLOOD CELLS (BEAKER) (test 0 /100 WBC 0-0 urtk=148) NEUTROPHILS RELATIVE PERCENT (BEAKER) (test 55 % wqdd=128) LYMPHOCYTES RELATIVE PERCENT (BEAKER) (test 31 % mmsf=322) MONOCYTES RELATIVE PERCENT (BEAKER) (test 8 % byir=942) EOSINOPHILS RELATIVE PERCENT (BEAKER) (test 5 % zhva=156) BASOPHILS RELATIVE PERCENT (BEAKER) (test 1 % acco=853) NEUTROPHILS ABSOLUTE COUNT (BEAKER) (test 2.28 K/ L 1.78-5.38 svlc=320) LYMPHOCYTES ABSOLUTE COUNT (BEAKER) (test 1.28 K/ L 1.32-3.57 vyry=227) MONOCYTES ABSOLUTE COUNT (BEAKER) (test 0.35 K/ L 0.30-0.82 kywk=697) EOSINOPHILS ABSOLUTE COUNT (BEAKER) (test 0.21 K/ L 0.04-0.54 aopc=870) BASOPHILS ABSOLUTE COUNT (BEAKER) (test 0.05 K/ L 0.01-0.08 mfin=537) IMMATURE GRANULOCYTES-RELATIVE PERCENT (BEAKER) 0 % 0-1 (test vfbw=1447) [id number] 07:42:00 Test Item Value Reference Range Comments MAGNESIUM (BEAKER) (test ynvq=341) 1.5 mg/dL 1.6-2.6 BASIC METABOLIC [id number] 07:42:00 Test Item Value Reference Range Comments SODIUM (BEAKER) (test 140 meq/L 136-145 nrhi=394) POTASSIUM (BEAKER) (test 3.3 meq/L 3.5-5.1 qhba=619) CHLORIDE (BEAKER) (test 106 meq/L 98-107 lrpi=343) CO2 (BEAKER) (test 27 meq/L 22-29 awde=369) BLOOD UREA NITROGEN 6 mg/dL 7-21 (BEAKER) (test hqxz=652) CREATININE (BEAKER) (test 0.53 mg/dL 0.57-1.25 ivqd=084) GLUCOSE RANDOM (BEAKER) 81 mg/dL 70-105 (test qftj=525) CALCIUM (BEAKER) (test 8.2 mg/dL 8.4-10.2 vjfu=921) EGFR (BEAKER) (test 180 mL/min/1.73 sq m ESTIMATED GFR IS NOT znqf=8103) ACCURATE CREATININE CLEARANCE IN PREDICTING GLOMERULAR FILTRATION RATE. ESTIMATED GFR IS NOT APPLICABLE FOR DIALYSIS PATIENTS. LIPID [id number] 07:42:00 Test Item Value Reference Range Comments TRIGLYCERIDES (BEAKER) (test pzon=684) 63 mg/dL CHOLESTEROL (BEAKER) (test nvmh=065) 101 mg/dL HDL CHOLESTEROL (BEAKER) (test bfgn=777) 20 mg/dL LDL CHOLESTEROL CALCULATED (BEAKER) (test 68 mg/dL qgkx=718) Triglyceride Reference Range: Low Risk <150 Borderline 150- 199 High Risk 200-499 Very High Risk >=500Cholesterol Reference Range: Low Risk <200 Borderline 200-239 High Risk > 240HDL Cholesterol Reference Range: Low Risk >=60 High Risk <40LDL Cholesterol Reference Range: Optimal <100 Near Optimal 100-129 Borderline 130-159 High 160-189 Very High >=190HEPATIC FUNCTION [id number] 07:42:00 Test Item Value Reference Range Comments TOTAL PROTEIN (BEAKER) (test lgvb=560) 6.1 gm/dL 6.0-8.3 ALBUMIN (BEAKER) (test blmq=1681) 2.7 g/dL 3.5-5.0 BILIRUBIN TOTAL (BEAKER) (test mjfq=757) 0.6 mg/dL 0.2-1.2 BILIRUBIN DIRECT (BEAKER) (test uqjp=885) 0.4 mg/dL 0.1-0.5 ALKALINE PHOSPHATASE (BEAKER) (test dazj=605) 157 U/L 40-150 AST (SGOT) (BEAKER) (test wrad=128) 58 U/L 5-34 ALT (SGPT) (BEAKER) (test wvvq=562) 21 U/L 6-55 CBC W/PLT COUNT & AUTO [id number] 05:47:00 Test Item Value Reference Range Comments WHITE BLOOD CELL COUNT (BEAKER) (test xssr=648) 4.3 K/ L 3.5-10.5 RED BLOOD CELL COUNT (BEAKER) (test qyar=612) 3.66 M/ L 4.63-6.08 HEMOGLOBIN (BEAKER) (test shxy=773) 11.4 GM/DL 13.7-17.5 HEMATOCRIT (BEAKER) (test fxje=502) 35.8 % 40.1-51.0 MEAN CORPUSCULAR VOLUME (BEAKER) (test urfa=631) 97.8 fL 79.0-92.2 MEAN CORPUSCULAR HEMOGLOBIN (BEAKER) (test 31.1 pg 25.7-32.2 rvvq=661) MEAN CORPUSCULAR HEMOGLOBIN CONC (BEAKER) (test 31.8 GM/DL 32.3-36.5 utrh=016) RED CELL DISTRIBUTION WIDTH (BEAKER) (test 14.2 % 11.6-14.4 ptja=138) PLATELET COUNT (BEAKER) (test epnp=653) 170 K/CU MM 150-450 MEAN PLATELET VOLUME (BEAKER) (test iehv=294) 9.9 fL 9.4-12.4 NUCLEATED RED BLOOD CELLS (BEAKER) (test 0 /100 WBC 0-0 dmmr=516) NEUTROPHILS RELATIVE PERCENT (BEAKER) (test 55 % egiv=791) LYMPHOCYTES RELATIVE PERCENT (BEAKER) (test 30 % imuf=352) MONOCYTES RELATIVE PERCENT (BEAKER) (test 10 % znin=353) EOSINOPHILS RELATIVE PERCENT (BEAKER) (test 4 % myxy=477) BASOPHILS RELATIVE PERCENT (BEAKER) (test 1 % iugq=210) NEUTROPHILS ABSOLUTE COUNT (BEAKER) (test 2.36 K/ L 1.78-5.38 hepm=628) LYMPHOCYTES ABSOLUTE COUNT (BEAKER) (test 1.30 K/ L 1.32-3.57 yrek=610) MONOCYTES ABSOLUTE COUNT (BEAKER) (test 0.41 K/ L 0.30-0.82 lnfr=427) EOSINOPHILS ABSOLUTE COUNT (BEAKER) (test 0.18 K/ L 0.04-0.54 wvwi=049) BASOPHILS ABSOLUTE COUNT (BEAKER) (test 0.03 K/ L 0.01-0.08 cowr=175) IMMATURE GRANULOCYTES-RELATIVE PERCENT (BEAKER) 1 % 0-1 (test grzj=8501) RAPID DRUG SCREEN, [id number] 23:57:00 Test Item Value Reference Range Comments BARBITURATE URINE (BEAKER) (test gwyh=380) Negative Negative BENZODIAZEPINE SCREEN URINE (BEAKER) (test Positive Negative qdtl=543) COCAINE (METAB.) SCREEN (BEAKER) (test gkzs=9093) Negative Negative METHADONE SCREEN (BEAKER) (test vsnr=7372) Negative Negative OPIATE SCREEN URINE (BEAKER) (test seqo=531) Negative Negative CANNABINOID SCREEN URINE (BEAKER) (test rncm=029) Positive Negative AMPH/METHAMPH SCREEN (BEAKER) (test earr=8072) Positive Negative PHENCYCLIDINE SCREEN URINE (BEAKER) (test pndy=939) Negative Negative DRUG CUTOFF CONC.Cocaine 300 ng/mL Cannabinoid 50 ng/mLBenzodiazepine 200 ng/mLBarbiturate 200 ng/ mLPhencyclidine 25 ng/mLOpiate 300 ng/mLMethadone 300 ng/mLAmphetamine/ 1000 ng/mL MethamphetamineThis assay provides an unconfirmed qualitative test result for the clinical management of patients in emergency situations. Chain of custody not maintained. Some jueg-geu-kzrtzdc medications, as well as adulterants, may cause inaccurate results. Clinical correlation should be applied. A more comprehensivedrug screen or confirmation of a detected drug may be performed upon request.BASIC METABOLIC [id number] 23:23:00 Test Item Value Reference Range Comments SODIUM (BEAKER) (test 139 meq/L 136-145 uhsr=861) POTASSIUM (BEAKER) (test 3.1 meq/L 3.5-5.1 kpxc=714) CHLORIDE (BEAKER) (test 103 meq/L 98-107 wrdc=767) CO2 (BEAKER) (test 28 meq/L 22-29 sxen=190) BLOOD UREA NITROGEN 8 mg/dL 7-21 (BEAKER) (test lncd=715) CREATININE (BEAKER) (test 0.60 mg/dL 0.57-1.25 heio=363) GLUCOSE RANDOM (BEAKER) 92 mg/dL 70-105 (test hdwi=036) CALCIUM (BEAKER) (test 8.6 mg/dL 8.4-10.2 aexi=605) EGFR (BEAKER) (test 156 mL/min/1.73 sq m ESTIMATED GFR IS NOT yoox=5871) ACCURATE CREATININE CLEARANCE IN PREDICTING GLOMERULAR FILTRATION RATE. ESTIMATED GFR IS NOT APPLICABLE FOR DIALYSIS PATIENTS. HEPATIC FUNCTION [id number] 23:23:00 Test Item Value Reference Range Comments TOTAL PROTEIN (BEAKER) (test aqwv=232) 7.1 gm/dL 6.0-8.3 ALBUMIN (BEAKER) (test sqvw=3519) 3.2 g/dL 3.5-5.0 BILIRUBIN TOTAL (BEAKER) (test dtus=031) 0.5 mg/dL 0.2-1.2 BILIRUBIN DIRECT (BEAKER) (test ifed=101) 0.4 mg/dL 0.1-0.5 ALKALINE PHOSPHATASE (BEAKER) (test eupk=599) 187 U/L 40-150 AST (SGOT) (BEAKER) (test aeoc=957) 62 U/L 5-34 ALT (SGPT) (BEAKER) (test dxrh=454) 24 U/L 6-55 [id number] 22:57:00 Test Item Value Reference Range Comments LIPASE (BEAKER) (test jytd=527) 957 U/L 8-78 [id number] 22:57:00 Test Item Value Reference Range Comments AMYLASE (BEAKER) (test nkus=988) 391 U/L 25-125 [id number] 22:56:00 Test Item Value Reference Range Comments PROTIME (BEAKER) (test onmc=262) 15.8 seconds 11.9-14.2 INR (BEAKER) (test mktp=119) 1.3 <=5.9 PARTIAL THROMBOPLASTIN TIME (BEAKER) (test 30.9 seconds 22.5-36.0 updw=000) Effective 12/11/2018: PT Reference Range ChangeNew: 11.9-14.2 Previous: 11.7- 14.7RECOMMENDED COUMADIN/WARFARIN INR THERAPY RANGESSTANDARD DOSE: 2.0-3.0 Includes: PROPHYLAXIS for venous thrombosis, systemic embolization; TREATMENT for venous thrombosis and/or pulmonary embolus.HIGH RISK: Target INR is2.5-3.5 for patients wiht mechanical heart valves.CBC W/PLT COUNT & AUTO [id number] 22:41:00 Test Item Value Reference Range Comments WHITE BLOOD CELL COUNT (BEAKER) (test ytsx=756) 6.4 K/ L 3.5-10.5 RED BLOOD CELL COUNT (BEAKER) (test rdie=250) 3.99 M/ L 4.63-6.08 HEMOGLOBIN (BEAKER) (test glup=824) 12.6 GM/DL 13.7-17.5 HEMATOCRIT (BEAKER) (test qrat=726) 39.0 % 40.1-51.0 MEAN CORPUSCULAR VOLUME (BEAKER) (test mtff=007) 97.7 fL 79.0-92.2 MEAN CORPUSCULAR HEMOGLOBIN (BEAKER) (test 31.6 pg 25.7-32.2 cvpi=154) MEAN CORPUSCULAR HEMOGLOBIN CONC (BEAKER) (test 32.3 GM/DL 32.3-36.5 nvts=242) RED CELL DISTRIBUTION WIDTH (BEAKER) (test 14.1 % 11.6-14.4 uvao=633) PLATELET COUNT (BEAKER) (test hmhd=577) 187 K/CU MM 150-450 MEAN PLATELET VOLUME (BEAKER) (test cxkh=438) 9.3 fL 9.4-12.4 NUCLEATED RED BLOOD CELLS (BEAKER) (test 0 /100 WBC 0-0 yahm=631) NEUTROPHILS RELATIVE PERCENT (BEAKER) (test 68 % ffqr=444) LYMPHOCYTES RELATIVE PERCENT (BEAKER) (test 19 % jiau=452) MONOCYTES RELATIVE PERCENT (BEAKER) (test 10 % ddmi=307) EOSINOPHILS RELATIVE PERCENT (BEAKER) (test 2 % pmfb=842) BASOPHILS RELATIVE PERCENT (BEAKER) (test 1 % tynb=343) NEUTROPHILS ABSOLUTE COUNT (BEAKER) (test 4.31 K/ L 1.78-5.38 yorj=408) LYMPHOCYTES ABSOLUTE COUNT (BEAKER) (test 1.21 K/ L 1.32-3.57 mako=071) MONOCYTES ABSOLUTE COUNT (BEAKER) (test 0.65 K/ L 0.30-0.82 mbkm=083) EOSINOPHILS ABSOLUTE COUNT (BEAKER) (test 0.14 K/ L 0.04-0.54 dgzy=833) BASOPHILS ABSOLUTE COUNT (BEAKER) (test 0.04 K/ L 0.01-0.08 qxdp=739) IMMATURE GRANULOCYTES-RELATIVE PERCENT (BEAKER) 0 % 0-1 (test pcsr=0867) COMPREHENSIVE METABOLIC [id number] 06:44:00 Test Item Value Reference Range Comments TOTAL PROTEIN (BEAKER) 6.2 gm/dL 6.0-8.3 (test lnwr=027) ALBUMIN (BEAKER) (test 2.7 g/dL 3.5-5.0 yfhd=5594) ALKALINE PHOSPHATASE 195 U/L 40-150 (BEAKER) (test rvlb=109) BILIRUBIN TOTAL (BEAKER) 0.7 mg/dL 0.2-1.2 (test bokw=900) SODIUM (BEAKER) (test 138 meq/L 136-145 yufd=175) POTASSIUM (BEAKER) (test 3.6 meq/L 3.5-5.1 shyd=660) CHLORIDE (BEAKER) (test 102 meq/L 98-107 mgiq=532) CO2 (BEAKER) (test 28 meq/L 22-29 guuk=293) BLOOD UREA NITROGEN 2 mg/dL 7-21 (BEAKER) (test csam=350) CREATININE (BEAKER) (test 0.52 mg/dL 0.57-1.25 hoid=791) GLUCOSE RANDOM (BEAKER) 103 mg/dL 70-105 (test hbio=583) CALCIUM (BEAKER) (test 8.5 mg/dL 8.4-10.2 vhuw=884) AST (SGOT) (BEAKER) (test 67 U/L 5-34 qcfg=200) ALT (SGPT) (BEAKER) (test 31 U/L 6-55 nkek=931) EGFR (BEAKER) (test 184 mL/min/1.73 sq ESTIMATED GFR IS NOT jmuw=6440) m ACCURATE CREATININE CLEARANCE IN PREDICTING GLOMERULAR FILTRATION RATE. ESTIMATED GFR IS NOT APPLICABLE FOR DIALYSIS PATIENTS. CBC W/PLT COUNT & AUTO [id number] 06:09:00 Test Item Value Reference Range Comments WHITE BLOOD CELL COUNT (BEAKER) (test yhtt=297) 4.0 K/ L 3.5-10.5 RED BLOOD CELL COUNT (BEAKER) (test ucpb=254) 3.23 M/ L 4.63-6.08 HEMOGLOBIN (BEAKER) (test jsms=135) 10.6 GM/DL 13.7-17.5 HEMATOCRIT (BEAKER) (test lran=356) 33.2 % 40.1-51.0 MEAN CORPUSCULAR VOLUME (BEAKER) (test tasw=593) 102.8 fL 79.0-92.2 MEAN CORPUSCULAR HEMOGLOBIN (BEAKER) (test 32.8 pg 25.7-32.2 uvxc=684) MEAN CORPUSCULAR HEMOGLOBIN CONC (BEAKER) (test 31.9 GM/DL 32.3-36.5 jtvb=526) RED CELL DISTRIBUTION WIDTH (BEAKER) (test 15.5 % 11.6-14.4 kdqw=124) PLATELET COUNT (BEAKER) (test pwbb=705) 226 K/CU MM 150-450 MEAN PLATELET VOLUME (BEAKER) (test wbiv=450) 10.4 fL 9.4-12.4 NUCLEATED RED BLOOD CELLS (BEAKER) (test 0 /100 WBC 0-0 ittr=473) NEUTROPHILS RELATIVE PERCENT (BEAKER) (test 54 % nutr=026) LYMPHOCYTES RELATIVE PERCENT (BEAKER) (test 29 % mixg=289) MONOCYTES RELATIVE PERCENT (BEAKER) (test 9 % ktda=093) EOSINOPHILS RELATIVE PERCENT (BEAKER) (test 6 % isva=762) BASOPHILS RELATIVE PERCENT (BEAKER) (test 1 % bzgk=799) NEUTROPHILS ABSOLUTE COUNT (BEAKER) (test 2.17 K/ L 1.78-5.38 eejm=906) LYMPHOCYTES ABSOLUTE COUNT (BEAKER) (test 1.18 K/ L 1.32-3.57 masn=184) MONOCYTES ABSOLUTE COUNT (BEAKER) (test 0.37 K/ L 0.30-0.82 sewg=301) EOSINOPHILS ABSOLUTE COUNT (BEAKER) (test 0.25 K/ L 0.04-0.54 dqfz=979) BASOPHILS ABSOLUTE COUNT (BEAKER) (test 0.04 K/ L 0.01-0.08 dewl=636) IMMATURE GRANULOCYTES-RELATIVE PERCENT (BEAKER) 0 % 0-1 (test hnlp=6054) COMPREHENSIVE METABOLIC [id number] 07:17:00 Test Item Value Reference Range Comments TOTAL PROTEIN (BEAKER) 7.3 gm/dL 6.0-8.3 (test opfj=690) ALBUMIN (BEAKER) (test 3.2 g/dL 3.5-5.0 vejh=1032) ALKALINE PHOSPHATASE 235 U/L 40-150 (BEAKER) (test wkqd=780) BILIRUBIN TOTAL (BEAKER) 0.9 mg/dL 0.2-1.2 (test cawl=070) SODIUM (BEAKER) (test 135 meq/L 136-145 ycdh=474) POTASSIUM (BEAKER) (test 3.6 meq/L 3.5-5.1 ecoo=426) CHLORIDE (BEAKER) (test 101 meq/L 98-107 prjj=339) CO2 (BEAKER) (test 29 meq/L 22-29 craz=189) BLOOD UREA NITROGEN < mg/dL 7-21 (BEAKER) (test krcl=887) CREATININE (BEAKER) (test 0.56 mg/dL 0.57-1.25 stvf=270) GLUCOSE RANDOM (BEAKER) 87 mg/dL 70-105 (test omaa=285) CALCIUM (BEAKER) (test 8.6 mg/dL 8.4-10.2 mttx=721) AST (SGOT) (BEAKER) (test 96 U/L 5-34 ulll=889) ALT (SGPT) (BEAKER) (test 40 U/L 6-55 mles=924) EGFR (BEAKER) (test 169 mL/min/1.73 sq ESTIMATED GFR IS NOT ewvx=7597) m ACCURATE CREATININE CLEARANCE IN PREDICTING GLOMERULAR FILTRATION RATE. ESTIMATED GFR IS NOT APPLICABLE FOR DIALYSIS PATIENTS. CBC W/PLT COUNT & AUTO [id number] 06:05:00 Test Item Value Reference Range Comments WHITE BLOOD CELL COUNT (BEAKER) (test ojsj=134) 5.1 K/ L 3.5-10.5 RED BLOOD CELL COUNT (BEAKER) (test utel=198) 3.60 M/ L 4.63-6.08 HEMOGLOBIN (BEAKER) (test sewu=251) 11.7 GM/DL 13.7-17.5 HEMATOCRIT (BEAKER) (test uqux=369) 37.6 % 40.1-51.0 MEAN CORPUSCULAR VOLUME (BEAKER) (test xuqt=850) 104.4 fL 79.0-92.2 MEAN CORPUSCULAR HEMOGLOBIN (BEAKER) (test 32.5 pg 25.7-32.2 pafs=827) MEAN CORPUSCULAR HEMOGLOBIN CONC (BEAKER) (test 31.1 GM/DL 32.3-36.5 ctvo=667) RED CELL DISTRIBUTION WIDTH (BEAKER) (test 15.5 % 11.6-14.4 oyrz=554) PLATELET COUNT (BEAKER) (test ewpg=363) 250 K/CU MM 150-450 MEAN PLATELET VOLUME (BEAKER) (test xupe=610) 10.1 fL 9.4-12.4 NUCLEATED RED BLOOD CELLS (BEAKER) (test 0 /100 WBC 0-0 ylrs=598) NEUTROPHILS RELATIVE PERCENT (BEAKER) (test 61 % usmd=389) LYMPHOCYTES RELATIVE PERCENT (BEAKER) (test 25 % scty=427) MONOCYTES RELATIVE PERCENT (BEAKER) (test 8 % phnd=340) EOSINOPHILS RELATIVE PERCENT (BEAKER) (test 5 % qdyn=588) BASOPHILS RELATIVE PERCENT (BEAKER) (test 1 % jsni=454) NEUTROPHILS ABSOLUTE COUNT (BEAKER) (test 3.09 K/ L 1.78-5.38 rowj=534) LYMPHOCYTES ABSOLUTE COUNT (BEAKER) (test 1.28 K/ L 1.32-3.57 wmag=854) MONOCYTES ABSOLUTE COUNT (BEAKER) (test 0.39 K/ L 0.30-0.82 mlac=401) EOSINOPHILS ABSOLUTE COUNT (BEAKER) (test 0.25 K/ L 0.04-0.54 nnoz=906) BASOPHILS ABSOLUTE COUNT (BEAKER) (test 0.05 K/ L 0.01-0.08 bfhj=549) IMMATURE GRANULOCYTES-RELATIVE PERCENT (BEAKER) 0 % 0-1 (test oier=1855) [id number] 07:51:00 Test Item Value Reference Range Comments MAGNESIUM (BEAKER) (test zsub=090) 1.7 mg/dL 1.6-2.6 COMPREHENSIVE METABOLIC [id number] 06:19:00 Test Item Value Reference Range Comments TOTAL PROTEIN (BEAKER) 6.1 gm/dL 6.0-8.3 (test junt=251) ALBUMIN (BEAKER) (test 2.7 g/dL 3.5-5.0 prho=7940) ALKALINE PHOSPHATASE 214 U/L 40-150 (BEAKER) (test wsrp=746) BILIRUBIN TOTAL (BEAKER) 0.9 mg/dL 0.2-1.2 (test rpya=886) SODIUM (BEAKER) (test 139 meq/L 136-145 dglx=495) POTASSIUM (BEAKER) (test 4.2 meq/L 3.5-5.1 kvyn=522) CHLORIDE (BEAKER) (test 110 meq/L 98-107 xyij=903) CO2 (BEAKER) (test 24 meq/L 22-29 cokn=779) BLOOD UREA NITROGEN < mg/dL 7-21 (BEAKER) (test vgol=603) CREATININE (BEAKER) (test 0.50 mg/dL 0.57-1.25 miys=609) GLUCOSE RANDOM (BEAKER) 77 mg/dL 70-105 (test glae=968) CALCIUM (BEAKER) (test 7.7 mg/dL 8.4-10.2 tgdl=626) AST (SGOT) (BEAKER) (test 96 U/L 5-34 chrk=485) ALT (SGPT) (BEAKER) (test 37 U/L 6-55 doql=050) EGFR (BEAKER) (test 193 mL/min/1.73 sq ESTIMATED GFR IS NOT rqbv=6804) m ACCURATE CREATININE CLEARANCE IN PREDICTING GLOMERULAR FILTRATION RATE. ESTIMATED GFR IS NOT APPLICABLE FOR DIALYSIS PATIENTS. CBC W/PLT COUNT & AUTO [id number] 05:15:00 Test Item Value Reference Range Comments WHITE BLOOD CELL COUNT (BEAKER) (test iyrw=687) 4.8 K/ L 3.5-10.5 RED BLOOD CELL COUNT (BEAKER) (test fihm=963) 3.25 M/ L 4.63-6.08 HEMOGLOBIN (BEAKER) (test mfgt=062) 10.7 GM/DL 13.7-17.5 HEMATOCRIT (BEAKER) (test puhs=902) 34.0 % 40.1-51.0 MEAN CORPUSCULAR VOLUME (BEAKER) (test ghlt=603) 104.6 fL 79.0-92.2 MEAN CORPUSCULAR HEMOGLOBIN (BEAKER) (test 32.9 pg 25.7-32.2 kzyg=397) MEAN CORPUSCULAR HEMOGLOBIN CONC (BEAKER) (test 31.5 GM/DL 32.3-36.5 zshv=455) RED CELL DISTRIBUTION WIDTH (BEAKER) (test 15.5 % 11.6-14.4 ooot=171) PLATELET COUNT (BEAKER) (test qcwd=049) 219 K/CU MM 150-450 MEAN PLATELET VOLUME (BEAKER) (test ukkj=258) 10.2 fL 9.4-12.4 NUCLEATED RED BLOOD CELLS (BEAKER) (test 0 /100 WBC 0-0 cgyu=401) NEUTROPHILS RELATIVE PERCENT (BEAKER) (test 56 % wise=213) LYMPHOCYTES RELATIVE PERCENT (BEAKER) (test 29 % nexc=527) MONOCYTES RELATIVE PERCENT (BEAKER) (test 8 % ybby=983) EOSINOPHILS RELATIVE PERCENT (BEAKER) (test 5 % tnxr=640) BASOPHILS RELATIVE PERCENT (BEAKER) (test 1 % rswy=149) NEUTROPHILS ABSOLUTE COUNT (BEAKER) (test 2.69 K/ L 1.78-5.38 wlbv=367) LYMPHOCYTES ABSOLUTE COUNT (BEAKER) (test 1.40 K/ L 1.32-3.57 iewn=861) MONOCYTES ABSOLUTE COUNT (BEAKER) (test 0.37 K/ L 0.30-0.82 jyua=653) EOSINOPHILS ABSOLUTE COUNT (BEAKER) (test 0.25 K/ L 0.04-0.54 lyvb=816) BASOPHILS ABSOLUTE COUNT (BEAKER) (test 0.05 K/ L 0.01-0.08 zbgs=450) IMMATURE GRANULOCYTES-RELATIVE PERCENT (BEAKER) 0 % 0-1 (test jjve=9078) COMPREHENSIVE METABOLIC [id number] 09:35:00 Test Item Value Reference Range Comments TOTAL PROTEIN (BEAKER) 6.4 gm/dL 6.0-8.3 Specimen slightly (test ndep=676) hemolyzed ALBUMIN (BEAKER) (test 2.8 g/dL 3.5-5.0 Specimen slightly flbu=5710) hemolyzed ALKALINE PHOSPHATASE 214 U/L 40-150 (BEAKER) (test uvts=805) BILIRUBIN TOTAL (BEAKER) 1.0 mg/dL 0.2-1.2 Specimen slightly (test kquk=339) hemolyzed SODIUM (BEAKER) (test 136 meq/L 136-145 iyym=632) POTASSIUM (BEAKER) (test 4.2 meq/L 3.5-5.1 Specimen slightly sicp=843) hemolyzed CHLORIDE (BEAKER) (test 107 meq/L 98-107 kieq=586) CO2 (BEAKER) (test 23 meq/L 22-29 fjmq=246) BLOOD UREA NITROGEN 2 mg/dL 7-21 (BEAKER) (test bllz=586) CREATININE (BEAKER) (test 0.54 mg/dL 0.57-1.25 Specimen slightly diqu=982) hemolyzed GLUCOSE RANDOM (BEAKER) 89 mg/dL 70-105 (test shjl=176) CALCIUM (BEAKER) (test 7.6 mg/dL 8.4-10.2 jiuw=474) AST (SGOT) (BEAKER) (test 101 U/L 5-34 Specimen slightly ypja=411) hemolyzed ALT (SGPT) (BEAKER) (test 41 U/L 6-55 Specimen slightly rgss=908) hemolyzed EGFR (BEAKER) (test 176 mL/min/1.73 sq ESTIMATED GFR IS NOT cxsp=5964) m ACCURATE CREATININE CLEARANCE IN PREDICTING GLOMERULAR FILTRATION RATE. ESTIMATED GFR IS NOT APPLICABLE FOR DIALYSIS PATIENTS. [id number] 09:27:00 Test Item Value Reference Range Comments MAGNESIUM (BEAKER) (test 1.3 mg/dL 1.6-2.6 Specimen slightly hemolyzed cqak=694) CBC W/PLT COUNT & AUTO [id number] 09:04:00 Test Item Value Reference Range Comments WHITE BLOOD CELL COUNT (BEAKER) (test yyvr=065) 5.7 K/ L 3.5-10.5 RED BLOOD CELL COUNT (BEAKER) (test rjxz=163) 3.18 M/ L 4.63-6.08 HEMOGLOBIN (BEAKER) (test rsha=634) 10.4 GM/DL 13.7-17.5 HEMATOCRIT (BEAKER) (test bldw=411) 33.1 % 40.1-51.0 MEAN CORPUSCULAR VOLUME (BEAKER) (test hlpg=099) 104.1 fL 79.0-92.2 MEAN CORPUSCULAR HEMOGLOBIN (BEAKER) (test 32.7 pg 25.7-32.2 mjle=600) MEAN CORPUSCULAR HEMOGLOBIN CONC (BEAKER) (test 31.4 GM/DL 32.3-36.5 kbcg=977) RED CELL DISTRIBUTION WIDTH (BEAKER) (test 15.9 % 11.6-14.4 ysde=810) PLATELET COUNT (BEAKER) (test lpvm=365) 223 K/CU MM 150-450 MEAN PLATELET VOLUME (BEAKER) (test eype=535) 10.4 fL 9.4-12.4 NUCLEATED RED BLOOD CELLS (BEAKER) (test 0 /100 WBC 0-0 bvsa=223) NEUTROPHILS RELATIVE PERCENT (BEAKER) (test 58 % stxp=380) LYMPHOCYTES RELATIVE PERCENT (BEAKER) (test 25 % bitf=856) MONOCYTES RELATIVE PERCENT (BEAKER) (test 11 % blgu=864) EOSINOPHILS RELATIVE PERCENT (BEAKER) (test 5 % dusu=773) BASOPHILS RELATIVE PERCENT (BEAKER) (test 1 % qnuk=368) NEUTROPHILS ABSOLUTE COUNT (BEAKER) (test 3.27 K/ L 1.78-5.38 icdm=531) LYMPHOCYTES ABSOLUTE COUNT (BEAKER) (test 1.40 K/ L 1.32-3.57 tuje=814) MONOCYTES ABSOLUTE COUNT (BEAKER) (test 0.61 K/ L 0.30-0.82 wuts=890) EOSINOPHILS ABSOLUTE COUNT (BEAKER) (test 0.30 K/ L 0.04-0.54 vxxx=037) BASOPHILS ABSOLUTE COUNT (BEAKER) (test 0.07 K/ L 0.01-0.08 nltn=015) IMMATURE GRANULOCYTES-RELATIVE PERCENT (BEAKER) 0 % 0-1 (test grss=0948) COMPREHENSIVE METABOLIC [id number] 05:26:00 Test Item Value Reference Range Comments TOTAL PROTEIN (BEAKER) 5.7 gm/dL 6.0-8.3 (test bwkq=912) ALBUMIN (BEAKER) (test 2.6 g/dL 3.5-5.0 zdhx=5695) ALKALINE PHOSPHATASE 204 U/L 40-150 (BEAKER) (test luhu=175) BILIRUBIN TOTAL (BEAKER) 1.0 mg/dL 0.2-1.2 (test swsl=280) SODIUM (BEAKER) (test 138 meq/L 136-145 lzew=209) POTASSIUM (BEAKER) (test 3.3 meq/L 3.5-5.1 uejf=723) CHLORIDE (BEAKER) (test 106 meq/L 98-107 yrxp=242) CO2 (BEAKER) (test 24 meq/L 22-29 dlpg=866) BLOOD UREA NITROGEN 5 mg/dL 7-21 (BEAKER) (test hksy=944) CREATININE (BEAKER) (test 0.53 mg/dL 0.57-1.25 judu=914) GLUCOSE RANDOM (BEAKER) 85 mg/dL 70-105 (test lwle=807) CALCIUM (BEAKER) (test 7.3 mg/dL 8.4-10.2 urpz=440) AST (SGOT) (BEAKER) (test 108 U/L 5-34 gfjh=794) ALT (SGPT) (BEAKER) (test 46 U/L 6-55 lcbn=593) EGFR (BEAKER) (test 180 mL/min/1.73 sq ESTIMATED GFR IS NOT iyrz=7511) m ACCURATE CREATININE CLEARANCE IN PREDICTING GLOMERULAR FILTRATION RATE. ESTIMATED GFR IS NOT APPLICABLE FOR DIALYSIS PATIENTS. PROTHROMBIN [id number] 05:08:00 Test Item Value Reference Range Comments PROTIME (BEAKER) (test nuyh=974) 17.0 seconds 11.9-14.2 INR (BEAKER) (test ocns=936) 1.5 <=5.9 Effective 12/11/2018: PT Reference Range ChangeNew: 11.9-14.2 Previous: 11.7- 14.7RECOMMENDED COUMADIN/WARFARIN INR THERAPY RANGESSTANDARD DOSE: 2.0-3.0 Includes: PROPHYLAXIS for venous thrombosis, systemic embolization; TREATMENT for venous thrombosis and/or pulmonary embolus.HIGH RISK: Target INR is2.5-3.5 for patients wiht mechanical heart valves.CBC W/PLT COUNT & AUTO [id number] 04:59:00 Test Item Value Reference Range Comments WHITE BLOOD CELL COUNT (BEAKER) (test fogt=116) 6.1 K/ L 3.5-10.5 RED BLOOD CELL COUNT (BEAKER) (test lnhd=918) 2.96 M/ L 4.63-6.08 HEMOGLOBIN (BEAKER) (test ybxv=348) 9.7 GM/DL 13.7-17.5 HEMATOCRIT (BEAKER) (test jxpm=204) 30.5 % 40.1-51.0 MEAN CORPUSCULAR VOLUME (BEAKER) (test uecc=769) 103.0 fL 79.0-92.2 MEAN CORPUSCULAR HEMOGLOBIN (BEAKER) (test 32.8 pg 25.7-32.2 mhlb=710) MEAN CORPUSCULAR HEMOGLOBIN CONC (BEAKER) (test 31.8 GM/DL 32.3-36.5 yuap=445) RED CELL DISTRIBUTION WIDTH (BEAKER) (test 16.0 % 11.6-14.4 lodz=043) PLATELET COUNT (BEAKER) (test etrd=930) 221 K/CU MM 150-450 MEAN PLATELET VOLUME (BEAKER) (test insn=790) 10.7 fL 9.4-12.4 NUCLEATED RED BLOOD CELLS (BEAKER) (test 0 /100 WBC 0-0 kihl=565) NEUTROPHILS RELATIVE PERCENT (BEAKER) (test 62 % oouo=412) LYMPHOCYTES RELATIVE PERCENT (BEAKER) (test 22 % gxck=129) MONOCYTES RELATIVE PERCENT (BEAKER) (test 11 % fwho=943) EOSINOPHILS RELATIVE PERCENT (BEAKER) (test 3 % fgcq=532) BASOPHILS RELATIVE PERCENT (BEAKER) (test 1 % qenj=723) NEUTROPHILS ABSOLUTE COUNT (BEAKER) (test 3.81 K/ L 1.78-5.38 ymyq=034) LYMPHOCYTES ABSOLUTE COUNT (BEAKER) (test 1.32 K/ L 1.32-3.57 savj=648) MONOCYTES ABSOLUTE COUNT (BEAKER) (test 0.70 K/ L 0.30-0.82 jgit=703) EOSINOPHILS ABSOLUTE COUNT (BEAKER) (test 0.21 K/ L 0.04-0.54 vvll=858) BASOPHILS ABSOLUTE COUNT (BEAKER) (test 0.07 K/ L 0.01-0.08 paua=299) IMMATURE GRANULOCYTES-RELATIVE PERCENT (BEAKER) 0 % 0-1 (test muqj=6597) POCT-GLUCOSE [id number] 07:44:00 Test Item Value Reference Range Comments POC-GLUCOSE METER (BEAKER) 90 mg/dL 70-110 TESTED AT [facility] [address] (test okis=2414) [facility] [address] COMPREHENSIVE METABOLIC [id number] 07:29:00 Test Item Value Reference Range Comments TOTAL PROTEIN (BEAKER) 5.7 gm/dL 6.0-8.3 (test pvva=362) ALBUMIN (BEAKER) (test 2.5 g/dL 3.5-5.0 iwma=8084) ALKALINE PHOSPHATASE 411 U/L 40-150 (BEAKER) (test glxk=928) BILIRUBIN TOTAL (BEAKER) 1.7 mg/dL 0.2-1.2 (test ywbn=773) SODIUM (BEAKER) (test 139 meq/L 136-145 txzc=268) POTASSIUM (BEAKER) (test 3.1 meq/L 3.5-5.1 erox=166) CHLORIDE (BEAKER) (test 105 meq/L 98-107 dcnd=562) CO2 (BEAKER) (test 24 meq/L 22-29 imtc=246) BLOOD UREA NITROGEN 3 mg/dL 7-21 (BEAKER) (test alyn=219) CREATININE (BEAKER) (test 0.61 mg/dL 0.57-1.25 gzfu=344) GLUCOSE RANDOM (BEAKER) 95 mg/dL 70-105 (test wbwh=483) CALCIUM (BEAKER) (test 6.8 mg/dL 8.4-10.2 odqg=994) AST (SGOT) (BEAKER) (test 173 U/L 5-34 soqj=987) ALT (SGPT) (BEAKER) (test 53 U/L 6-55 wwot=440) EGFR (BEAKER) (test 153 mL/min/1.73 sq ESTIMATED GFR IS NOT ebqv=7025) m ACCURATE CREATININE CLEARANCE IN PREDICTING GLOMERULAR FILTRATION RATE. ESTIMATED GFR IS NOT APPLICABLE FOR DIALYSIS PATIENTS. [id number] 07:28:00 Test Item Value Reference Range Comments PHOSPHORUS (BEAKER) (test wded=955) 2.4 mg/dL 2.3-4.7 [id number] 07:28:00 Test Item Value Reference Range Comments MAGNESIUM (BEAKER) (test ezne=950) 1.8 mg/dL 1.6-2.6 HEPATIC FUNCTION [id number] 07:28:00 Test Item Value Reference Range Comments TOTAL PROTEIN (BEAKER) (test gecr=619) 5.7 gm/dL 6.0-8.3 ALBUMIN (BEAKER) (test nfoa=0450) 2.5 g/dL 3.5-5.0 BILIRUBIN TOTAL (BEAKER) (test xpgb=098) 1.7 mg/dL 0.2-1.2 BILIRUBIN DIRECT (BEAKER) (test lqsq=983) 1.3 mg/dL 0.1-0.5 ALKALINE PHOSPHATASE (BEAKER) (test rnbi=860) 411 U/L 40-150 AST (SGOT) (BEAKER) (test kttx=277) 173 U/L 5-34 ALT (SGPT) (BEAKER) (test mgyc=850) 53 U/L 6-55 [id number] 07:28:00 Test Item Value Reference Range Comments LIPASE (BEAKER) (test wjcw=081) 231 U/L 8-78 CBC W/PLT COUNT & AUTO [id number] 07:10:00 Test Item Value Reference Range Comments WHITE BLOOD CELL COUNT (BEAKER) (test wfjs=825) 4.5 K/ L 3.5-10.5 RED BLOOD CELL COUNT (BEAKER) (test txoi=003) 2.76 M/ L 4.63-6.08 HEMOGLOBIN (BEAKER) (test vzsm=463) 9.2 GM/DL 13.7-17.5 HEMATOCRIT (BEAKER) (test aoca=638) 29.2 % 40.1-51.0 MEAN CORPUSCULAR VOLUME (BEAKER) (test axoc=089) 105.8 fL 79.0-92.2 MEAN CORPUSCULAR HEMOGLOBIN (BEAKER) (test 33.3 pg 25.7-32.2 vaur=704) MEAN CORPUSCULAR HEMOGLOBIN CONC (BEAKER) (test 31.5 GM/DL 32.3-36.5 syvd=797) RED CELL DISTRIBUTION WIDTH (BEAKER) (test 21.9 % 11.6-14.4 gguz=006) PLATELET COUNT (BEAKER) (test fabm=027) 150 K/CU MM 150-450 MEAN PLATELET VOLUME (BEAKER) (test utkt=170) 10.5 fL 9.4-12.4 NUCLEATED RED BLOOD CELLS (BEAKER) (test 0 /100 WBC 0-0 dsrh=277) NEUTROPHILS RELATIVE PERCENT (BEAKER) (test 65 % anpq=791) LYMPHOCYTES RELATIVE PERCENT (BEAKER) (test 17 % grch=422) MONOCYTES RELATIVE PERCENT (BEAKER) (test 13 % rjgi=994) EOSINOPHILS RELATIVE PERCENT (BEAKER) (test 2 % eybv=536) BASOPHILS RELATIVE PERCENT (BEAKER) (test 1 % fsrb=520) NEUTROPHILS ABSOLUTE COUNT (BEAKER) (test 2.91 K/ L 1.78-5.38 wrxh=411) LYMPHOCYTES ABSOLUTE COUNT (BEAKER) (test 0.78 K/ L 1.32-3.57 ctfs=891) MONOCYTES ABSOLUTE COUNT (BEAKER) (test 0.59 K/ L 0.30-0.82 tcpv=832) EOSINOPHILS ABSOLUTE COUNT (BEAKER) (test 0.11 K/ L 0.04-0.54 ujkr=140) BASOPHILS ABSOLUTE COUNT (BEAKER) (test 0.05 K/ L 0.01-0.08 cmff=880) IMMATURE GRANULOCYTES-RELATIVE PERCENT (BEAKER) 2 % 0-1 (test nrzh=2703) COMPREHENSIVE METABOLIC [id number] 04:23:00 Test Item Value Reference Range Comments TOTAL PROTEIN (BEAKER) 5.5 gm/dL 6.0-8.3 (test htxf=129) ALBUMIN (BEAKER) (test 2.5 g/dL 3.5-5.0 oijl=9397) ALKALINE PHOSPHATASE 453 U/L 40-150 (BEAKER) (test liew=286) BILIRUBIN TOTAL (BEAKER) 2.0 mg/dL 0.2-1.2 (test ohin=402) SODIUM (BEAKER) (test 138 meq/L 136-145 qtpt=609) POTASSIUM (BEAKER) (test 3.2 meq/L 3.5-5.1 duvu=592) CHLORIDE (BEAKER) (test 104 meq/L 98-107 gkfd=998) CO2 (BEAKER) (test 26 meq/L 22-29 cjpc=484) BLOOD UREA NITROGEN 3 mg/dL 7-21 (BEAKER) (test oixe=733) CREATININE (BEAKER) (test 0.51 mg/dL 0.57-1.25 ivsv=369) GLUCOSE RANDOM (BEAKER) 104 mg/dL 70-105 (test ermz=001) CALCIUM (BEAKER) (test 7.0 mg/dL 8.4-10.2 cuuq=326) AST (SGOT) (BEAKER) (test 166 U/L 5-34 ygai=182) ALT (SGPT) (BEAKER) (test 52 U/L 6-55 ufml=380) EGFR (BEAKER) (test 188 mL/min/1.73 sq ESTIMATED GFR IS NOT burm=0337) m ACCURATE CREATININE CLEARANCE IN PREDICTING GLOMERULAR FILTRATION RATE. ESTIMATED GFR IS NOT APPLICABLE FOR DIALYSIS PATIENTS. [id number] 04:21:00 Test Item Value Reference Range Comments PHOSPHORUS (BEAKER) (test tojy=883) 2.0 mg/dL 2.3-4.7 [id number] 04:21:00 Test Item Value Reference Range Comments MAGNESIUM (BEAKER) (test ymdv=772) 1.5 mg/dL 1.6-2.6 HEPATIC FUNCTION [id number] 04:21:00 Test Item Value Reference Range Comments TOTAL PROTEIN (BEAKER) (test bflc=146) 5.5 gm/dL 6.0-8.3 ALBUMIN (BEAKER) (test cffw=7526) 2.5 g/dL 3.5-5.0 BILIRUBIN TOTAL (BEAKER) (test wxtr=630) 2.0 mg/dL 0.2-1.2 BILIRUBIN DIRECT (BEAKER) (test zgdx=290) 1.5 mg/dL 0.1-0.5 ALKALINE PHOSPHATASE (BEAKER) (test lkdn=639) 453 U/L 40-150 AST (SGOT) (BEAKER) (test tgvl=454) 166 U/L 5-34 ALT (SGPT) (BEAKER) (test ohbs=445) 52 U/L 6-55 [id number] 04:21:00 Test Item Value Reference Range Comments LIPASE (BEAKER) (test rckv=596) 283 U/L 8-78 CBC W/PLT COUNT & AUTO [id number] 04:19:00 Test Item Value Reference Range Comments WHITE BLOOD CELL COUNT (BEAKER) (test iwyv=459) 4.6 K/ L 3.5-10.5 RED BLOOD CELL COUNT (BEAKER) (test csai=331) 2.82 M/ L 4.63-6.08 HEMOGLOBIN (BEAKER) (test kgjh=561) 9.4 GM/DL 13.7-17.5 HEMATOCRIT (BEAKER) (test ymoo=431) 28.9 % 40.1-51.0 MEAN CORPUSCULAR VOLUME (BEAKER) (test yigb=808) 102.5 fL 79.0-92.2 MEAN CORPUSCULAR HEMOGLOBIN (BEAKER) (test 33.3 pg 25.7-32.2 ruvn=767) MEAN CORPUSCULAR HEMOGLOBIN CONC (BEAKER) (test 32.5 GM/DL 32.3-36.5 hgxd=387) RED CELL DISTRIBUTION WIDTH (BEAKER) (test 21.8 % 11.6-14.4 evjt=604) PLATELET COUNT (BEAKER) (test hsrh=554) 141 K/CU MM 150-450 MEAN PLATELET VOLUME (BEAKER) (test qzfh=136) 9.5 fL 9.4-12.4 NUCLEATED RED BLOOD CELLS (BEAKER) (test 0 /100 WBC 0-0 dfxe=873) NEUTROPHILS RELATIVE PERCENT (BEAKER) (test 63 % jlqb=812) LYMPHOCYTES RELATIVE PERCENT (BEAKER) (test 22 % pasn=937) MONOCYTES RELATIVE PERCENT (BEAKER) (test 10 % bpxf=951) EOSINOPHILS RELATIVE PERCENT (BEAKER) (test 3 % cjjj=217) BASOPHILS RELATIVE PERCENT (BEAKER) (test 1 % foaz=890) NEUTROPHILS ABSOLUTE COUNT (BEAKER) (test 2.86 K/ L 1.78-5.38 fdib=193) LYMPHOCYTES ABSOLUTE COUNT (BEAKER) (test 1.02 K/ L 1.32-3.57 elps=020) MONOCYTES ABSOLUTE COUNT (BEAKER) (test 0.44 K/ L 0.30-0.82 vlvf=339) EOSINOPHILS ABSOLUTE COUNT (BEAKER) (test 0.12 K/ L 0.04-0.54 ktef=075) BASOPHILS ABSOLUTE COUNT (BEAKER) (test 0.05 K/ L 0.01-0.08 rizi=889) IMMATURE GRANULOCYTES-RELATIVE PERCENT (BEAKER) 2 % 0-1 (test zkkk=5259) HEMOGLOBIN AND [id number] 03:57:00 Test Item Value Reference Range Comments HEMOGLOBIN (BEAKER) (test geke=605) 9.4 GM/DL 13.7-17.5 HEMATOCRIT (BEAKER) (test iuux=711) 28.9 % 40.1-51.0 HEMOGLOBIN AND [id number] 11:59:00 Test Item Value Reference Range Comments HEMOGLOBIN (BEAKER) (test wbfo=354) 8.4 GM/DL 13.7-17.5 HEMATOCRIT (BEAKER) (test tksb=765) 24.7 % 40.1-51.0 [id number] 09:15:00 Test Item Value Reference Range Comments LIPASE (BEAKER) (test idji=565) 214 U/L 8-78 HEPATIC FUNCTION [id number] 06:09:00 Test Item Value Reference Range Comments TOTAL PROTEIN (BEAKER) (test vevn=140) 5.1 gm/dL 6.0-8.3 ALBUMIN (BEAKER) (test heuw=9226) 2.4 g/dL 3.5-5.0 BILIRUBIN TOTAL (BEAKER) (test ozkg=288) 2.0 mg/dL 0.2-1.2 BILIRUBIN DIRECT (BEAKER) (test clbq=742) 1.4 mg/dL 0.1-0.5 ALKALINE PHOSPHATASE (BEAKER) (test lfqk=582) 418 U/L 40-150 AST (SGOT) (BEAKER) (test rhdo=758) 147 U/L 5-34 ALT (SGPT) (BEAKER) (test dqgz=222) 51 U/L 6-55 CBC (HEMOGRAM ONLY)[id number] 05:04:00 Test Item Value Reference Range Comments WHITE BLOOD CELL COUNT (BEAKER) (test vowh=266) 4.8 K/ L 3.5-10.5 RED BLOOD CELL COUNT (BEAKER) (test zsxc=848) 2.41 M/ L 4.63-6.08 HEMOGLOBIN (BEAKER) (test aivs=275) 8.1 GM/DL 13.7-17.5 HEMATOCRIT (BEAKER) (test qlyk=951) 24.1 % 40.1-51.0 MEAN CORPUSCULAR VOLUME (BEAKER) (test qdqi=128) 100.0 fL 79.0-92.2 MEAN CORPUSCULAR HEMOGLOBIN (BEAKER) (test 33.6 pg 25.7-32.2 qalj=397) MEAN CORPUSCULAR HEMOGLOBIN CONC (BEAKER) (test 33.6 GM/DL 32.3-36.5 tkvu=860) RED CELL DISTRIBUTION WIDTH (BEAKER) (test 22.4 % 11.6-14.4 svmt=110) PLATELET COUNT (BEAKER) (test klyu=529) 135 K/CU MM 150-450 MEAN PLATELET VOLUME (BEAKER) (test azhj=182) 10.0 fL 9.4-12.4 NUCLEATED RED BLOOD CELLS (BEAKER) (test 1 /100 WBC 0-0 nvjs=959) BASIC METABOLIC [id number] 02:50:00 Test Item Value Reference Range Comments SODIUM (BEAKER) (test 137 meq/L 136-145 kney=667) POTASSIUM (BEAKER) (test 3.1 meq/L 3.5-5.1 hcaa=772) CHLORIDE (BEAKER) (test 104 meq/L 98-107 labz=166) CO2 (BEAKER) (test 24 meq/L 22-29 ijry=164) BLOOD UREA NITROGEN 3 mg/dL 7-21 (BEAKER) (test eofh=103) CREATININE (BEAKER) (test 0.50 mg/dL 0.57-1.25 fpwu=767) GLUCOSE RANDOM (BEAKER) 124 mg/dL 70-105 (test fuze=090) CALCIUM (BEAKER) (test 6.5 mg/dL 8.4-10.2 knfc=047) EGFR (BEAKER) (test 193 mL/min/1.73 sq m ESTIMATED GFR IS NOT bgnd=1059) ACCURATE CREATININE CLEARANCE IN PREDICTING GLOMERULAR FILTRATION RATE. ESTIMATED GFR IS NOT APPLICABLE FOR DIALYSIS PATIENTS. [id number] 02:14:00 Test Item Value Reference Range Comments PHOSPHORUS (BEAKER) (test advz=980) 2.6 mg/dL 2.3-4.7 [id number] 02:14:00 Test Item Value Reference Range Comments MAGNESIUM (BEAKER) (test djtn=883) 1.9 mg/dL 1.6-2.6 HEMOGLOBIN AND [id number] 01:13:00 Test Item Value Reference Range Comments HEMOGLOBIN (BEAKER) (test wbnr=026) 8.1 GM/DL 13.7-17.5 HEMATOCRIT (BEAKER) (test wlio=550) 23.8 % 40.1-51.0 POCT-GLUCOSE [id number] 20:56:00 Test Item Value Reference Range Comments POC-GLUCOSE METER (BEAKER) 105 mg/dL 70-110 TESTED AT [facility] [address] (test ozcs=1686) [facility] [address] COMPREHENSIVE METABOLIC [id number] 14:51:00 Test Item Value Reference Range Comments TOTAL PROTEIN (BEAKER) 6.0 gm/dL 6.0-8.3 (test cxnu=451) ALBUMIN (BEAKER) (test 2.8 g/dL 3.5-5.0 xrgc=0950) ALKALINE PHOSPHATASE 489 U/L 40-150 (BEAKER) (test wjtk=786) BILIRUBIN TOTAL (BEAKER) 2.7 mg/dL 0.2-1.2 (test decv=277) SODIUM (BEAKER) (test 141 meq/L 136-145 njei=487) POTASSIUM (BEAKER) (test 2.6 meq/L 3.5-5.1 srdm=383) CHLORIDE (BEAKER) (test 103 meq/L 98-107 pzmb=090) CO2 (BEAKER) (test 28 meq/L 22-29 wltc=321) BLOOD UREA NITROGEN 5 mg/dL 7-21 (BEAKER) (test oiqi=961) CREATININE (BEAKER) (test 0.54 mg/dL 0.57-1.25 krti=756) GLUCOSE RANDOM (BEAKER) 88 mg/dL 70-105 (test yrnb=004) CALCIUM (BEAKER) (test 7.1 mg/dL 8.4-10.2 whzy=292) AST (SGOT) (BEAKER) (test 168 U/L 5-34 gfml=616) ALT (SGPT) (BEAKER) (test 61 U/L 6-55 ydiq=592) EGFR (BEAKER) (test 176 mL/min/1.73 sq ESTIMATED GFR IS NOT nmiq=1721) m ACCURATE CREATININE CLEARANCE IN PREDICTING GLOMERULAR FILTRATION RATE. ESTIMATED GFR IS NOT APPLICABLE FOR DIALYSIS PATIENTS. Specimen slightly [id number] 14:51:00 Test Item Value Reference Range Comments PHOSPHORUS (BEAKER) (test ajzm=750) 0.9 mg/dL 2.3-4.7 [id number] 14:41:00 Test Item Value Reference Range Comments MAGNESIUM (BEAKER) (test xnpi=368) 1.3 mg/dL 1.6-2.6 [id number] 14:41:00 Test Item Value Reference Range Comments AMYLASE (BEAKER) (test kvob=976) 160 U/L 25-125 Specimen slightly ictericLACTATE DEHYDROGENASE (LDH)2019-02-12 14:41:00 Test Item Value Reference Range Comments LACTATE DEHYDROGENASE (BEAKER) (test zxsz=545) 572 U/L 125-220 [id number] 14:41:00 Test Item Value Reference Range Comments LIPASE (BEAKER) (test hnpq=868) 562 U/L 8-78 Specimen slightly [id number] 14:39:00 Test Item Value Reference Range Comments ETHANOL (BEAKER) (test xvfr=077) < mg/dL <=10 [id number] 14:27:00 Test Item Value Reference Range Comments D-DIMER QUANTITATIVE (BEAKER) (test avsy=152) 4.23 MG/L FEU <0.50 Intended Use: The [...] of thrombosis is within 95-100% range.LACTIC ACID, [id number] 14:25:00 Test Item Value Reference Range Comments LACTATE BLOOD VENOUS (2) (BEAKER) (test 1.5 mmol/L 0.5-2.2 jwac=9686) [id number] 14:21:00 Test Item Value Reference Range Comments AMMONIA (BEAKER) (test uxvm=673) 50 mol/L 18-72 [id number] 14:17:00 Test Item Value Reference Range Comments PROTIME (BEAKER) (test zvin=524) 17.8 seconds 11.9-14.2 INR (BEAKER) (test dcgf=749) 1.6 <=5.9 PARTIAL THROMBOPLASTIN TIME (BEAKER) (test 34.9 seconds 22.5-36.0 bixt=327) Effective 12/11/2018: PT Reference Range ChangeNew: 11.9-14.2 Previous: 11.7- 14.7RECOMMENDED COUMADIN/WARFARIN INR THERAPY RANGESSTANDARD DOSE: 2.0-3.0 Includes: PROPHYLAXIS for venous thrombosis, systemic embolization; TREATMENT for venous thrombosis and/or pulmonary embolus.HIGH RISK: Target INR is2.5-3.5 for patients wiht mechanical heart valves.[id number] 14:17:00 Test Item Value Reference Range Comments FIBRINOGEN LEVEL (BEAKER) (test hcfw=124) 304 mg/dl 225-434 CBC (HEMOGRAM ONLY)2019-02-12 14:13:00 Test Item Value Reference Range Comments WHITE BLOOD CELL COUNT 5.0 K/ L 3.5-10.5 (BEAKER) (test nlhp=522) RED BLOOD CELL COUNT (BEAKER) 2.64 M/ L 4.63-6.08 (test bptr=816) HEMOGLOBIN (BEAKER) (test 9.0 GM/DL 13.7-17.5 rmyf=443) HEMATOCRIT (BEAKER) (test 27.0 % 40.1-51.0 cdhg=212) MEAN CORPUSCULAR VOLUME 102.3 fL 79.0-92.2 (BEAKER) (test qgll=566) MEAN CORPUSCULAR HEMOGLOBIN 34.1 pg 25.7-32.2 (BEAKER) (test omnu=103) MEAN CORPUSCULAR HEMOGLOBIN 33.3 GM/DL 32.3-36.5 CONC (BEAKER) (test ygfk=866) RED CELL DISTRIBUTION WIDTH % 11.6-14.4 Unable to report due to (BEAKER) (test kejs=128) abnormal Platelet population distribution. PLATELET COUNT (BEAKER) (test 146 K/CU MM 150-450 ziuf=945) MEAN PLATELET VOLUME (BEAKER) 10.0 fL 9.4-12.4 (test qzcu=236) NUCLEATED RED BLOOD CELLS 1 /100 WBC 0-0 (BEAKER) (test ppbo=641) CBC W/PLT COUNT & AUTO [id number] 05:36:00 Test Item Value Reference Range Comments WHITE BLOOD CELL COUNT (BEAKER) (test iowq=146) 3.1 K/ L 3.5-10.5 RED BLOOD CELL COUNT (BEAKER) (test swar=981) 3.39 M/ L 4.63-6.08 HEMOGLOBIN (BEAKER) (test nyvs=561) 11.5 GM/DL 13.7-17.5 HEMATOCRIT (BEAKER) (test mlmv=418) 33.7 % 40.1-51.0 MEAN CORPUSCULAR VOLUME (BEAKER) (test skkm=987) 99.4 fL 79.0-92.2 MEAN CORPUSCULAR HEMOGLOBIN (BEAKER) (test 33.9 pg 25.7-32.2 irsu=506) MEAN CORPUSCULAR HEMOGLOBIN CONC (BEAKER) (test 34.1 GM/DL 32.3-36.5 cspu=755) RED CELL DISTRIBUTION WIDTH (BEAKER) (test 12.8 % 11.6-14.4 gbby=955) PLATELET COUNT (BEAKER) (test bjad=553) 130 K/CU MM 150-450 MEAN PLATELET VOLUME (BEAKER) (test vwpb=985) 10.4 fL 9.4-12.4 NUCLEATED RED BLOOD CELLS (BEAKER) (test 0 /100 WBC 0-0 owps=629) NEUTROPHILS RELATIVE PERCENT (BEAKER) (test 51 % wnlj=191) LYMPHOCYTES RELATIVE PERCENT (BEAKER) (test 31 % qcfg=660) MONOCYTES RELATIVE PERCENT (BEAKER) (test 12 % qxpa=520) EOSINOPHILS RELATIVE PERCENT (BEAKER) (test 4 % hfsq=508) BASOPHILS RELATIVE PERCENT (BEAKER) (test 1 % ypdl=016) NEUTROPHILS ABSOLUTE COUNT (BEAKER) (test 1.61 K/ L 1.78-5.38 lqxl=190) LYMPHOCYTES ABSOLUTE COUNT (BEAKER) (test 0.98 K/ L 1.32-3.57 snso=988) MONOCYTES ABSOLUTE COUNT (BEAKER) (test 0.38 K/ L 0.30-0.82 gnnt=944) EOSINOPHILS ABSOLUTE COUNT (BEAKER) (test 0.11 K/ L 0.04-0.54 crlw=755) BASOPHILS ABSOLUTE COUNT (BEAKER) (test 0.04 K/ L 0.01-0.08 nlrd=581) IMMATURE GRANULOCYTES-RELATIVE PERCENT (BEAKER) 1 % 0-1 (test qamx=9000) MR, ABDOMEN, [id number] 13:31:00FINAL REPORT MRCP, MRI of abdomen without [...] MDReport Verified Date/Time: 12/12/2018 13:31:00 Reading Location: [facility] B1 C013Y CT Body Reading Room COMPREHENSIVE METABOLIC [id number] 09:56:00 Test Item Value Reference Range Comments TOTAL PROTEIN (BEAKER) 5.5 gm/dL 6.0-8.3 (test rqqx=285) ALBUMIN (BEAKER) (test 3.1 g/dL 3.5-5.0 iqjj=3171) ALKALINE PHOSPHATASE 116 U/L 40-150 (BEAKER) (test fbus=471) BILIRUBIN TOTAL (BEAKER) 1.9 mg/dL 0.2-1.2 (test dnbx=440) SODIUM (BEAKER) (test 139 meq/L 136-145 djbh=970) POTASSIUM (BEAKER) (test 3.0 meq/L 3.5-5.1 bdfl=377) CHLORIDE (BEAKER) (test 107 meq/L 98-107 tbpg=934) CO2 (BEAKER) (test 23 meq/L 22-29 qsol=874) BLOOD UREA NITROGEN 4 mg/dL 7-21 (BEAKER) (test fpij=390) CREATININE (BEAKER) (test 0.56 mg/dL 0.57-1.25 ryhf=001) GLUCOSE RANDOM (BEAKER) 116 mg/dL 70-105 (test ivsd=940) CALCIUM (BEAKER) (test 7.4 mg/dL 8.4-10.2 gqwu=392) AST (SGOT) (BEAKER) (test 297 U/L 5-34 gfyi=218) ALT (SGPT) (BEAKER) (test 173 U/L 6-55 oyvm=423) EGFR (BEAKER) (test 169 mL/min/1.73 sq ESTIMATED GFR IS NOT jyyx=4544) m ACCURATE CREATININE CLEARANCE IN PREDICTING GLOMERULAR FILTRATION RATE. ESTIMATED GFR IS NOT APPLICABLE FOR DIALYSIS PATIENTS. CBC W/PLT COUNT & AUTO [id number] 04:42:00 Test Item Value Reference Range Comments WHITE BLOOD CELL COUNT (BEAKER) (test qvfz=664) 3.1 K/ L 3.5-10.5 RED BLOOD CELL COUNT (BEAKER) (test kfng=966) 3.09 M/ L 4.63-6.08 HEMOGLOBIN (BEAKER) (test xevv=253) 10.7 GM/DL 13.7-17.5 HEMATOCRIT (BEAKER) (test zxvt=959) 30.5 % 40.1-51.0 MEAN CORPUSCULAR VOLUME (BEAKER) (test osik=061) 98.7 fL 79.0-92.2 MEAN CORPUSCULAR HEMOGLOBIN (BEAKER) (test 34.6 pg 25.7-32.2 tumd=619) MEAN CORPUSCULAR HEMOGLOBIN CONC (BEAKER) (test 35.1 GM/DL 32.3-36.5 uljq=099) RED CELL DISTRIBUTION WIDTH (BEAKER) (test 12.4 % 11.6-14.4 fszs=570) PLATELET COUNT (BEAKER) (test afgk=383) 99 K/CU MM 150-450 MEAN PLATELET VOLUME (BEAKER) (test aqkv=088) 11.0 fL 9.4-12.4 NUCLEATED RED BLOOD CELLS (BEAKER) (test 0 /100 WBC 0-0 pksp=748) NEUTROPHILS RELATIVE PERCENT (BEAKER) (test 60 % gfps=004) LYMPHOCYTES RELATIVE PERCENT (BEAKER) (test 26 % peeh=851) MONOCYTES RELATIVE PERCENT (BEAKER) (test 11 % tpmj=834) EOSINOPHILS RELATIVE PERCENT (BEAKER) (test 2 % rsut=026) BASOPHILS RELATIVE PERCENT (BEAKER) (test 1 % xzmw=495) NEUTROPHILS ABSOLUTE COUNT (BEAKER) (test 1.84 K/ L 1.78-5.38 jjyk=901) LYMPHOCYTES ABSOLUTE COUNT (BEAKER) (test 0.81 K/ L 1.32-3.57 xelo=252) MONOCYTES ABSOLUTE COUNT (BEAKER) (test zeqh=017) 0.34 K/ L 0.30-0.82 EOSINOPHILS ABSOLUTE COUNT (BEAKER) (test 0.06 K/ L 0.04-0.54 xqbq=387) BASOPHILS ABSOLUTE COUNT (BEAKER) (test xaxe=848) 0.03 K/ L 0.01-0.08 IMMATURE GRANULOCYTES-RELATIVE PERCENT (BEAKER) 0 % 0-1 (test ugfq=5969) FL, ESOPH, SWALLOW FUNCTION, WITH CINE OR [id number] 12:02:00Reason for exam:->pneumomediastinum, rule out esophageal perforationFINAL [...] Verified Date/Time: 12/11/2018 12:02: 17 Reading Location: [address] Ortho Consult Reading Room BASI METABOLIC [id number] 07:31:00 Test Item Value Reference Range Comments SODIUM (BEAKER) (test 139 meq/L 136-145 talv=105) POTASSIUM (BEAKER) (test 3.4 meq/L 3.5-5.1 Specimen slightly dkzo=731) hemolyzed CHLORIDE (BEAKER) (test 103 meq/L 98-107 cozy=504) CO2 (BEAKER) (test 20 meq/L 22-29 xxgm=153) BLOOD UREA NITROGEN 18 mg/dL 7-21 (BEAKER) (test cswb=476) CREATININE (BEAKER) (test 0.73 mg/dL 0.57-1.25 Specimen slightly ffep=632) hemolyzed GLUCOSE RANDOM (BEAKER) 67 mg/dL 70-105 (test ialz=378) CALCIUM (BEAKER) (test 8.6 mg/dL 8.4-10.2 ugiy=765) EGFR (BEAKER) (test 125 mL/min/1.73 sq m ESTIMATED GFR IS NOT bbvg=9343) ACCURATE CREATININE CLEARANCE IN PREDICTING GLOMERULAR FILTRATION RATE. ESTIMATED GFR IS NOT APPLICABLE FOR DIALYSIS PATIENTS. CBC W/PLT COUNT & AUTO [id number] 07:12:00 Test Item Value Reference Range Comments WHITE BLOOD CELL COUNT (BEAKER) (test zfry=641) 4.6 K/ L 3.5-10.5 RED BLOOD CELL COUNT (BEAKER) (test gmzl=237) 3.19 M/ L 4.63-6.08 HEMOGLOBIN (BEAKER) (test mehk=719) 11.1 GM/DL 13.7-17.5 HEMATOCRIT (BEAKER) (test adcq=047) 31.0 % 40.1-51.0 MEAN CORPUSCULAR VOLUME (BEAKER) (test sxun=203) 97.2 fL 79.0-92.2 MEAN CORPUSCULAR HEMOGLOBIN (BEAKER) (test 34.8 pg 25.7-32.2 tntt=152) MEAN CORPUSCULAR HEMOGLOBIN CONC (BEAKER) (test 35.8 GM/DL 32.3-36.5 antc=291) RED CELL DISTRIBUTION WIDTH (BEAKER) (test 13.0 % 11.6-14.4 ogky=833) PLATELET COUNT (BEAKER) (test ohfx=752) 103 K/CU MM 150-450 MEAN PLATELET VOLUME (BEAKER) (test ggjm=381) 11.0 fL 9.4-12.4 NUCLEATED RED BLOOD CELLS (BEAKER) (test 0 /100 WBC 0-0 sgao=372) NEUTROPHILS RELATIVE PERCENT (BEAKER) (test 73 % sxqd=378) LYMPHOCYTES RELATIVE PERCENT (BEAKER) (test 16 % kmfu=371) MONOCYTES RELATIVE PERCENT (BEAKER) (test 9 % leev=435) EOSINOPHILS RELATIVE PERCENT (BEAKER) (test 1 % vpfs=722) BASOPHILS RELATIVE PERCENT (BEAKER) (test 0 % nrwf=306) NEUTROPHILS ABSOLUTE COUNT (BEAKER) (test 3.36 K/ L 1.78-5.38 bgrg=959) LYMPHOCYTES ABSOLUTE COUNT (BEAKER) (test 0.75 K/ L 1.32-3.57 nsoi=187) MONOCYTES ABSOLUTE COUNT (BEAKER) (test 0.41 K/ L 0.30-0.82 pohf=736) EOSINOPHILS ABSOLUTE COUNT (BEAKER) (test 0.04 K/ L 0.04-0.54 ehod=068) BASOPHILS ABSOLUTE COUNT (BEAKER) (test 0.02 K/ L 0.01-0.08 iivb=758) IMMATURE GRANULOCYTES-RELATIVE PERCENT (BEAKER) 1 % 0-1 (test ynff=9605) RAD, CHEST, 1 VIEW, NON [id number] 20:13:00Reason for exam:-> pneumomediastinumShould this be performed [...] Verified Date /Time: 12/10/2018 20:13:39 Reading Location: [address] Reading Room [id number] 19:12:00 Test Item Value Reference Range Comments MAGNESIUM (BEAKER) (test 1.8 mg/dL 1.6-2.6 Specimen slightly hemolyzed pbap=202) COMPREHENSIVE METABOLIC [id number] 19:12:00 Test Item Value Reference Range Comments TOTAL PROTEIN (BEAKER) 6.3 gm/dL 6.0-8.3 Specimen slightly (test zfvn=574) hemolyzed ALBUMIN (BEAKER) (test 3.7 g/dL 3.5-5.0 Specimen slightly bnbu=0372) hemolyzed ALKALINE PHOSPHATASE 129 U/L 40-150 (BEAKER) (test jbpm=822) BILIRUBIN TOTAL (BEAKER) 2.9 mg/dL 0.2-1.2 Specimen slightly (test fcqr=010) hemolyzed SODIUM (BEAKER) (test 137 meq/L 136-145 aknr=176) POTASSIUM (BEAKER) (test 2.7 meq/L 3.5-5.1 Specimen slightly hflc=076) hemolyzed CHLORIDE (BEAKER) (test 99 meq/L 98-107 onor=419) CO2 (BEAKER) (test 23 meq/L 22-29 wyax=947) BLOOD UREA NITROGEN 22 mg/dL 7-21 (BEAKER) (test yqxd=860) CREATININE (BEAKER) (test 1.28 mg/dL 0.57-1.25 Specimen slightly wmbc=128) hemolyzed GLUCOSE RANDOM (BEAKER) 78 mg/dL 70-105 (test zqit=072) CALCIUM (BEAKER) (test 8.5 mg/dL 8.4-10.2 apbt=201) AST (SGOT) (BEAKER) (test 502 U/L 5-34 Specimen slightly iyhk=603) hemolyzed ALT (SGPT) (BEAKER) (test 225 U/L 6-55 Specimen slightly upfr=543) hemolyzed EGFR (BEAKER) (test 65 mL/min/1.73 sq m ESTIMATED GFR IS NOT luqu=4927) ACCURATE CREATININE CLEARANCE IN PREDICTING GLOMERULAR FILTRATION RATE. ESTIMATED GFR IS NOT APPLICABLE FOR DIALYSIS PATIENTS. Specimen slightly ictericPROTHROMBIN [id number] 18:53:00 Test Item Value Reference Range Comments PROTIME (BEAKER) (test pqvj=091) 15.8 seconds 11.7-14.7 INR (BEAKER) (test qzvl=994) 1.3 <=5.9 RECOMMENDED COUMADIN/WARFARIN INR THERAPY RANGESSTANDARD DOSE: 2.0 - 3.0 Includes: PROPHYLAXIS forvenous thrombosis, systemic embolization; TREATMENT for venous thrombosis and/or pulmonary embolus.HIGH RISK: Target INR is 2.5-3.5 for patients with mechanical heart valves.CBC W/PLT COUNT & AUTO [id number] 18:49:00 Test Item Value Reference Range Comments WHITE BLOOD CELL COUNT (BEAKER) (test leuw=547) 6.0 K/ L 3.5-10.5 RED BLOOD CELL COUNT (BEAKER) (test udmi=752) 3.44 M/ L 4.63-6.08 HEMOGLOBIN (BEAKER) (test gmrl=174) 11.6 GM/DL 13.7-17.5 HEMATOCRIT (BEAKER) (test vmom=574) 34.1 % 40.1-51.0 MEAN CORPUSCULAR VOLUME (BEAKER) (test emgr=145) 99.1 fL 79.0-92.2 MEAN CORPUSCULAR HEMOGLOBIN (BEAKER) (test 33.7 pg 25.7-32.2 qqtj=440) MEAN CORPUSCULAR HEMOGLOBIN CONC (BEAKER) (test 34.0 GM/DL 32.3-36.5 oodd=510) RED CELL DISTRIBUTION WIDTH (BEAKER) (test 13.1 % 11.6-14.4 sffx=808) PLATELET COUNT (BEAKER) (test ldrk=992) 109 K/CU MM 150-450 MEAN PLATELET VOLUME (BEAKER) (test zsml=154) 11.0 fL 9.4-12.4 NUCLEATED RED BLOOD CELLS (BEAKER) (test 0 /100 WBC 0-0 lcxt=894) NEUTROPHILS RELATIVE PERCENT (BEAKER) (test 81 % uqdh=530) LYMPHOCYTES RELATIVE PERCENT (BEAKER) (test 12 % frse=460) MONOCYTES RELATIVE PERCENT (BEAKER) (test 7 % nvzd=703) EOSINOPHILS RELATIVE PERCENT (BEAKER) (test 0 % tcla=433) BASOPHILS RELATIVE PERCENT (BEAKER) (test 0 % pnjz=693) NEUTROPHILS ABSOLUTE COUNT (BEAKER) (test 4.84 K/ L 1.78-5.38 yhlq=100) LYMPHOCYTES ABSOLUTE COUNT (BEAKER) (test 0.72 K/ L 1.32-3.57 jdhj=290) MONOCYTES ABSOLUTE COUNT (BEAKER) (test 0.41 K/ L 0.30-0.82 zifa=391) EOSINOPHILS ABSOLUTE COUNT (BEAKER) (test 0.01 K/ L 0.04-0.54 sofj=264) BASOPHILS ABSOLUTE COUNT (BEAKER) (test 0.02 K/ L 0.01-0.08 vpcu=958) IMMATURE GRANULOCYTES-RELATIVE PERCENT (BEAKER) 0 % 0-1 (test wpmg=0088) BLOOD [id number] 20:01:00 Test Item Value Reference Range Comments CULTURE (BEAKER) (test amio=0137) No growth in 5 days BLOOD [id number] 20:01:00 Test Item Value Reference Range Comments CULTURE (BEAKER) (test cydv=4096) No growth in 5 days RAD, CHEST, 1 VIEW, NON [id number] 13:13:00Reason for exam:->evalute for pneumoniaShould this be performed at the bedside?->YesAddendum BeginsREPORT STATUS:A Addendum:Clinical diagnosis alcohol withdrawalsyndrome, electrolyte disturbances, elevated liver function tests, pneumonia, Signed: Marilu Sharpe MDReport Verified Date/Time: 11/01/2018 13:13: 23 Reading Location: [address] Consult Reading RoomAddendum EndsFINAL REPORT Chest [...] MDReport Verified Date/Time: 10/28 15:36:38 Reading Location: [facility] [id number] Consult Reading Room U/S, ABDOMINAL, WITH [id number] 10:43:00Reason for exam:->evaluate for portal hypertension, cirrhosis, [...] MDReport Verified Date/Time: 10/31/2018 10:43:58 Reading Location: [facility] [id number] Ultrasound Reading Room COMPREHENSIVE METABOLIC [id number] 06:57:00 Test Item Value Reference Range Comments TOTAL PROTEIN (BEAKER) 6.3 gm/dL 6.0-8.3 (test noqm=436) ALBUMIN (BEAKER) (test 3.4 g/dL 3.5-5.0 kauc=7372) ALKALINE PHOSPHATASE 165 U/L 40-150 (BEAKER) (test vnvn=711) BILIRUBIN TOTAL (BEAKER) 0.6 mg/dL 0.2-1.2 (test hvmz=538) SODIUM (BEAKER) (test 140 meq/L 136-145 otbf=460) POTASSIUM (BEAKER) (test 3.6 meq/L 3.5-5.1 vhph=440) CHLORIDE (BEAKER) (test 102 meq/L 98-107 mzpq=229) CO2 (BEAKER) (test 29 meq/L 22-29 ricb=502) BLOOD UREA NITROGEN 3 mg/dL 7-21 (BEAKER) (test zpxy=447) CREATININE (BEAKER) (test 0.55 mg/dL 0.57-1.25 npbq=960) GLUCOSE RANDOM (BEAKER) 89 mg/dL 70-105 (test aprd=241) CALCIUM (BEAKER) (test 9.2 mg/dL 8.4-10.2 ocsg=712) AST (SGOT) (BEAKER) (test 184 U/L 5-34 gkck=846) ALT (SGPT) (BEAKER) (test 156 U/L 6-55 qkvx=495) EGFR (BEAKER) (test 173 mL/min/1.73 sq ESTIMATED GFR IS NOT veuj=8938) m ACCURATE CREATININE CLEARANCE IN PREDICTING GLOMERULAR FILTRATION RATE. ESTIMATED GFR IS NOT APPLICABLE FOR DIALYSIS PATIENTS. HEMOGLOBIN [id number] 09:30:00 Test Item Value Reference Range Comments HEMOGLOBIN A1C (BEAKER) (test znhy=531) 4.9 % 4.3-6.1 COMPREHENSIVE METABOLIC [id number] 05:17:00 Test Item Value Reference Range Comments TOTAL PROTEIN (BEAKER) 6.5 gm/dL 6.0-8.3 (test ampo=662) ALBUMIN (BEAKER) (test 3.6 g/dL 3.5-5.0 wluq=7533) ALKALINE PHOSPHATASE 170 U/L 40-150 (BEAKER) (test xqmd=829) BILIRUBIN TOTAL (BEAKER) 0.9 mg/dL 0.2-1.2 (test oszn=685) SODIUM (BEAKER) (test 141 meq/L 136-145 aeqb=537) POTASSIUM (BEAKER) (test 3.5 meq/L 3.5-5.1 fzfw=520) CHLORIDE (BEAKER) (test 104 meq/L 98-107 pknm=354) CO2 (BEAKER) (test 26 meq/L 22-29 vjtx=392) BLOOD UREA NITROGEN 4 mg/dL 7-21 (BEAKER) (test efwi=968) CREATININE (BEAKER) (test 0.55 mg/dL 0.57-1.25 kkai=970) GLUCOSE RANDOM (BEAKER) 89 mg/dL 70-105 (test ccoc=255) CALCIUM (BEAKER) (test 9.3 mg/dL 8.4-10.2 husf=503) AST (SGOT) (BEAKER) (test 167 U/L 5-34 cosc=008) ALT (SGPT) (BEAKER) (test 156 U/L 6-55 hbua=110) EGFR (BEAKER) (test 173 mL/min/1.73 sq ESTIMATED GFR IS NOT dadc=8313) m ACCURATE CREATININE CLEARANCE IN PREDICTING GLOMERULAR FILTRATION RATE. ESTIMATED GFR IS NOT APPLICABLE FOR DIALYSIS PATIENTS. CBC W/PLT COUNT & AUTO [id number] 04:53:00 Test Item Value Reference Range Comments WHITE BLOOD CELL COUNT (BEAKER) (test lscw=859) 3.4 K/ L 3.5-10.5 RED BLOOD CELL COUNT (BEAKER) (test qufm=646) 3.45 M/ L 4.63-6.08 HEMOGLOBIN (BEAKER) (test ohuy=587) 11.8 GM/DL 13.7-17.5 HEMATOCRIT (BEAKER) (test mjno=780) 34.4 % 40.1-51.0 MEAN CORPUSCULAR VOLUME (BEAKER) (test yhja=000) 99.7 fL 79.0-92.2 MEAN CORPUSCULAR HEMOGLOBIN (BEAKER) (test 34.2 pg 25.7-32.2 ubfx=960) MEAN CORPUSCULAR HEMOGLOBIN CONC (BEAKER) (test 34.3 GM/DL 32.3-36.5 ntgw=781) RED CELL DISTRIBUTION WIDTH (BEAKER) (test 12.2 % 11.6-14.4 kztj=856) PLATELET COUNT (BEAKER) (test nwxg=230) 175 K/CU MM 150-450 MEAN PLATELET VOLUME (BEAKER) (test hola=654) 10.3 fL 9.4-12.4 NUCLEATED RED BLOOD CELLS (BEAKER) (test 0 /100 WBC 0-0 yyul=938) NEUTROPHILS RELATIVE PERCENT (BEAKER) (test 55 % rlhm=239) LYMPHOCYTES RELATIVE PERCENT (BEAKER) (test 30 % hefu=658) MONOCYTES RELATIVE PERCENT (BEAKER) (test 11 % ozqo=322) EOSINOPHILS RELATIVE PERCENT (BEAKER) (test 3 % ddmf=628) BASOPHILS RELATIVE PERCENT (BEAKER) (test 1 % fkrk=754) NEUTROPHILS ABSOLUTE COUNT (BEAKER) (test 1.89 K/ L 1.78-5.38 eryf=836) LYMPHOCYTES ABSOLUTE COUNT (BEAKER) (test 1.03 K/ L 1.32-3.57 awht=124) MONOCYTES ABSOLUTE COUNT (BEAKER) (test 0.39 K/ L 0.30-0.82 vpex=522) EOSINOPHILS ABSOLUTE COUNT (BEAKER) (test 0.09 K/ L 0.04-0.54 uvga=250) BASOPHILS ABSOLUTE COUNT (BEAKER) (test 0.03 K/ L 0.01-0.08 fdeh=226) IMMATURE GRANULOCYTES-RELATIVE PERCENT (BEAKER) 0 % 0-1 (test vvxn=3928) LIPID [id number] 17:30:00 Test Item Value Reference Range Comments TRIGLYCERIDES (BEAKER) (test qqxj=593) 90 mg/dL CHOLESTEROL (BEAKER) (test yanp=077) 140 mg/dL HDL CHOLESTEROL (BEAKER) (test bnja=079) 37 mg/dL LDL CHOLESTEROL CALCULATED (BEAKER) (test 85 mg/dL qtdu=210) Triglyceride Reference Range: Low Risk <150 Borderline 150- 199 High Risk 200-499 Very High Risk >=500Cholesterol Reference Range: Low Risk <200 Borderline 200-239 High Risk > 240HDL Cholesterol Reference Range: Low Risk >=60 High Risk <40LDL Cholesterol Reference Range: Optimal <100 Near Optimal 100-129 Borderline 130-159 High 160-189 Very High >=190HEPATITIS C PCR, [id number] 14:57:00 Test Item Value Reference Range Comments HCV RESULT COMPONENT (BEAKER) HCV RNA not detected HCV RNA not detected (test hihp=5364) This test uses a Real-Time Polymerase Chain Reaction (RT-PCR) methodology and was performed using [employer] Ampliprep/MARIANO TaqMan HCV test kit version 2.0 ( [employer]).Reportable range for this assay is 15 - 100,000, 000 IU per mL (1.18 - 8.00 Log IU/mL).RAD, ABDOMEN/KUB, 1 VIEW [id number] 14: 17:00Reason for exam:->abd distensionFINAL REPORT TECHNIQUE: Supine radiographs of the abdomen dated 10/29/2018. HISTORY: Abdominal distention. COMPARISON: None IMPRESSION:No air-filled, dilated loops of bowel to suggest obstruction. No free intraperitoneal air. No abnormal soft tissue mass or calcification. Signed:Nancy Concepcioneport Verified Date/ Time: 10/29/2018 14:17:17 Reading Location: [facility] Radiology Reading Room [id number] 13:28:00 Test Item Value Reference Range Comments RPR SCREEN (BEAKER) (test zami=736) Nonreactive Nonreactive [id number] 05:12:00 Test Item Value Reference Range Comments PHOSPHORUS (BEAKER) (test zqpg=205) 2.5 mg/dL 2.3-4.7 COMPREHENSIVE METABOLIC [id number] 05:12:00 Test Item Value Reference Range Comments TOTAL PROTEIN (BEAKER) 6.9 gm/dL 6.0-8.3 (test aixe=623) ALBUMIN (BEAKER) (test 3.9 g/dL 3.5-5.0 rdok=8243) ALKALINE PHOSPHATASE 200 U/L 40-150 (BEAKER) (test iyxq=982) BILIRUBIN TOTAL (BEAKER) 1.2 mg/dL 0.2-1.2 (test mtsf=437) SODIUM (BEAKER) (test 137 meq/L 136-145 cryi=162) POTASSIUM (BEAKER) (test 3.3 meq/L 3.5-5.1 tyxz=103) CHLORIDE (BEAKER) (test 97 meq/L 98-107 raxh=206) CO2 (BEAKER) (test 27 meq/L 22-29 uonm=689) BLOOD UREA NITROGEN 3 mg/dL 7-21 (BEAKER) (test mkcv=505) CREATININE (BEAKER) (test 0.57 mg/dL 0.57-1.25 vraw=657) GLUCOSE RANDOM (BEAKER) 108 mg/dL 70-105 (test fzxe=455) CALCIUM (BEAKER) (test 9.4 mg/dL 8.4-10.2 xqyw=178) AST (SGOT) (BEAKER) (test 263 U/L 5-34 hflh=976) ALT (SGPT) (BEAKER) (test 215 U/L 6-55 hwqu=152) EGFR (BEAKER) (test 166 mL/min/1.73 sq ESTIMATED GFR IS NOT iazt=3180) m ACCURATE CREATININE CLEARANCE IN PREDICTING GLOMERULAR FILTRATION RATE. ESTIMATED GFR IS NOT APPLICABLE FOR DIALYSIS PATIENTS. PROTHROMBIN [id number] 04:53:00 Test Item Value Reference Range Comments PROTIME (BEAKER) (test aual=471) 16.0 seconds 11.7-14.7 INR (BEAKER) (test qvqg=180) 1.3 <=5.9 RECOMMENDED COUMADIN/WARFARIN INR THERAPY RANGESSTANDARD DOSE: 2.0 - 3.0 Includes: PROPHYLAXIS forvenous thrombosis, systemic embolization; TREATMENT for venous thrombosis and/or pulmonary embolus.HIGH RISK: Target INR is 2.5-3.5 for patients with mechanical heart valves.URINALYSIS W/ REFLEX URINE [id number] 18:43:00 Test Item Value Reference Range Comments COLOR (BEAKER) (test tgzy=534) Yellow CLARITY (BEAKER) (test qwcb=432) Clear SPECIFIC GRAVITY UA (BEAKER) (test jodu=099) 1.007 1.001-1.035 PH UA (BEAKER) (test zclk=863) 7.5 5.0-8.0 PROTEIN UA (BEAKER) (test mvnh=403) 20 mg/dL Negative GLUCOSE UA (BEAKER) (test bdqg=467) Negative Negative KETONES UA (BEAKER) (test fgyr=882) 20 mg/dL Negative BILIRUBIN UA (BEAKER) (test aylt=553) Negative Negative BLOOD UA (BEAKER) (test zidv=910) Trace Negative NITRITE UA (BEAKER) (test ztlj=218) Negative Negative LEUKOCYTE ESTERASE UA (BEAKER) (test xiay=569) Negative Negative UROBILINOGEN UA (BEAKER) (test uojs=789) 2.0 mg/dL 0.2-1.0 RBC UA (BEAKER) (test aqih=869) 3 /HPF WBC UA (BEAKER) (test nihe=633) < /HPF MUCUS (BEAKER) (test qpkg=4834) Rare SOURCE(BEAKER) (test izra=2858) VITAMIN B12 AND [id number] 15:08:00 Test Item Value Reference Range Comments VITAMIN B12 (BEAKER) (test heuw=509) 1678 pg/mL 213-816 FOLATE (BEAKER) (test simh=321) 19.4 ng/mL >=7.0 [id number] 14:48:00 Test Item Value Reference Range Comments FERRITIN (BEAKER) (test rwmc=311) 1698 ng/mL 5-275 IRON, TIBC, % SAT. (WITHOUT FERRITIN)2018-10-28 13:26:00 Test Item Value Reference Range Comments IRON (BEAKER) (test uwum=139) 44.0 ug/dL 40.0-160.0 TOTAL IRON BINDING CAPACITY (BEAKER) (test 186 ug/dL 250-450 zydp=179) IRON % SATURATION (2) (BEAKER) (test sppf=6693) 24 % 20-55 HEPATITIS B SURFACE [id number] 13:26:00 Test Item Value Reference Range Comments HEPATITIS B SURFACE ANTIGEN (2) (BEAKER) (test Nonreactive Nonreactive uxrq=4931) HEPATITIS C [id number] 13:26:00 Test Item Value Reference Range Comments HEPATITIS C ANTIBODY (BEAKER) (test rxav=347) Nonreactive Nonreactive HIV-1 ANTIGEN WITH HIV-1/2 [id number] 13:26:00 Test Item Value Reference Range Comments HIV-1 ANTIGEN WITH HIV 1\T\2 ANTIBODY (2) Nonreactive Nonreactive (BEAKER) (test vtgc=6261) HEPATITIS B SURFACE [id number] 13:19:00 Test Item Value Reference Range Comments HEPATITIS B SURFACE ANTIBODY (BEAKER) (test 34.5 mIU/mL <8.0 skon=083) HEPATITIS A ANTIBODY, [id number] 13:19:00 Test Item Value Reference Range Comments HEPATITIS A IGM ANTIBODY (BEAKER) (test Nonreactive Nonreactive hzme=513) HEPATITIS B CORE ANTIBODY, [id number] 13:19:00 Test Item Value Reference Range Comments HEPATITIS B CORE TOTAL ANTIBODY (BEAKER) (test Nonreactive Nonreactive iezm=461) HEPATITIS A ANTIBODY, [id number] 13:19:00 Test Item Value Reference Range Comments HEPATITIS A IGG ANTIBODY (BEAKER) (test Nonreactive Nonreactive zjdm=5667) PROTHROMBIN [id number] 13:00:00 Test Item Value Reference Range Comments PROTIME (BEAKER) (test rqdx=092) 15.5 seconds 11.7-14.7 INR (BEAKER) (test vejw=316) 1.2 <=5.9 RECOMMENDED COUMADIN/WARFARIN INR THERAPY RANGESSTANDARD DOSE: 2.0 - 3.0 Includes: PROPHYLAXIS forvenous thrombosis, systemic embolization; TREATMENT for venous thrombosis and/or pulmonary embolus.HIGH RISK: Target INR is 2.5-3.5 for patients with mechanical heart valves.[id number] 03:31:00 Test Item Value Reference Range Comments PHOSPHORUS (BEAKER) (test nnjb=687) 3.5 mg/dL 2.3-4.7 [id number] 03:31:00 Test Item Value Reference Range Comments MAGNESIUM (BEAKER) (test yimr=276) 1.5 mg/dL 1.6-2.6 COMPREHENSIVE METABOLIC [id number] 03:31:00 Test Item Value Reference Range Comments TOTAL PROTEIN (BEAKER) 6.5 gm/dL 6.0-8.3 (test tiah=148) ALBUMIN (BEAKER) (test 3.7 g/dL 3.5-5.0 kcpk=5727) ALKALINE PHOSPHATASE 200 U/L 40-150 (BEAKER) (test tzsm=578) BILIRUBIN TOTAL (BEAKER) 0.8 mg/dL 0.2-1.2 (test huhv=856) SODIUM (BEAKER) (test 142 meq/L 136-145 wbdl=235) POTASSIUM (BEAKER) (test 3.1 meq/L 3.5-5.1 itfm=073) CHLORIDE (BEAKER) (test 103 meq/L 98-107 eurh=056) CO2 (BEAKER) (test 24 meq/L 22-29 bdju=244) BLOOD UREA NITROGEN 4 mg/dL 7-21 (BEAKER) (test avaa=910) CREATININE (BEAKER) (test 0.55 mg/dL 0.57-1.25 mper=281) GLUCOSE RANDOM (BEAKER) 100 mg/dL 70-105 (test roeh=125) CALCIUM (BEAKER) (test 8.5 mg/dL 8.4-10.2 lfga=974) AST (SGOT) (BEAKER) (test 318 U/L 5-34 wdyp=224) ALT (SGPT) (BEAKER) (test 244 U/L 6-55 ozrg=529) EGFR (BEAKER) (test 173 mL/min/1.73 sq ESTIMATED GFR IS NOT ocqt=0348) m ACCURATE CREATININE CLEARANCE IN PREDICTING GLOMERULAR FILTRATION RATE. ESTIMATED GFR IS NOT APPLICABLE FOR DIALYSIS PATIENTS. CBC W/PLT COUNT & AUTO [id number] 03:03:00 Test Item Value Reference Range Comments WHITE BLOOD CELL COUNT (BEAKER) (test avrw=542) 4.2 K/ L 3.5-10.5 RED BLOOD CELL COUNT (BEAKER) (test lfuc=131) 3.61 M/ L 4.63-6.08 HEMOGLOBIN (BEAKER) (test ehld=282) 12.3 GM/DL 13.7-17.5 HEMATOCRIT (BEAKER) (test caug=199) 35.9 % 40.1-51.0 MEAN CORPUSCULAR VOLUME (BEAKER) (test zrro=082) 99.4 fL 79.0-92.2 MEAN CORPUSCULAR HEMOGLOBIN (BEAKER) (test 34.1 pg 25.7-32.2 tbxh=941) MEAN CORPUSCULAR HEMOGLOBIN CONC (BEAKER) (test 34.3 GM/DL 32.3-36.5 ggae=358) RED CELL DISTRIBUTION WIDTH (BEAKER) (test 12.3 % 11.6-14.4 rgep=382) PLATELET COUNT (BEAKER) (test qahd=590) 122 K/CU MM 150-450 MEAN PLATELET VOLUME (BEAKER) (test zftx=018) 9.8 fL 9.4-12.4 NUCLEATED RED BLOOD CELLS (BEAKER) (test 0 /100 WBC 0-0 vjyh=404) NEUTROPHILS RELATIVE PERCENT (BEAKER) (test 70 % vhie=708) LYMPHOCYTES RELATIVE PERCENT (BEAKER) (test 17 % mnth=964) MONOCYTES RELATIVE PERCENT (BEAKER) (test 11 % znnw=799) EOSINOPHILS RELATIVE PERCENT (BEAKER) (test 1 % kwol=576) BASOPHILS RELATIVE PERCENT (BEAKER) (test 1 % uthp=061) NEUTROPHILS ABSOLUTE COUNT (BEAKER) (test 2.94 K/ L 1.78-5.38 zzds=774) LYMPHOCYTES ABSOLUTE COUNT (BEAKER) (test 0.73 K/ L 1.32-3.57 nedc=568) MONOCYTES ABSOLUTE COUNT (BEAKER) (test 0.45 K/ L 0.30-0.82 eyzu=710) EOSINOPHILS ABSOLUTE COUNT (BEAKER) (test 0.04 K/ L 0.04-0.54 yofy=888) BASOPHILS ABSOLUTE COUNT (BEAKER) (test 0.02 K/ L 0.01-0.08 atsl=812) IMMATURE GRANULOCYTES-RELATIVE PERCENT (BEAKER) 1 % 0-1 (test xhlp=2798) POCT-GLUCOSE [id number] 12:15:00 Test Item Value Reference Range Comments POC-GLUCOSE METER (BEAKER) 99 mg/dL 70-110 TESTED AT [facility] [address] [facility] (test qdsw=4223) [facility] [address] [id number] 06:15:00 Test Item Value Reference Range Comments MAGNESIUM (BEAKER) (test fhhn=227) 1.8 mg/dL 1.6-2.6 COMPREHENSIVE METABOLIC [id number] 06:15:00 Test Item Value Reference Range Comments TOTAL PROTEIN (BEAKER) 6.6 gm/dL 6.0-8.3 (test qkiu=287) ALBUMIN (BEAKER) (test 3.6 g/dL 3.5-5.0 jmei=8966) ALKALINE PHOSPHATASE 149 U/L 40-150 (BEAKER) (test uffe=635) BILIRUBIN TOTAL (BEAKER) 0.8 mg/dL 0.2-1.2 (test fhvt=355) SODIUM (BEAKER) (test 135 meq/L 136-145 oegb=051) POTASSIUM (BEAKER) (test 3.6 meq/L 3.5-5.1 wiku=843) CHLORIDE (BEAKER) (test 98 meq/L 98-107 tyjm=120) CO2 (BEAKER) (test 26 meq/L 22-29 yrhi=583) BLOOD UREA NITROGEN 8 mg/dL 7-21 (BEAKER) (test qsjj=595) CREATININE (BEAKER) (test 0.57 mg/dL 0.57-1.25 efcd=301) GLUCOSE RANDOM (BEAKER) 100 mg/dL 70-105 (test mhlu=346) CALCIUM (BEAKER) (test 9.5 mg/dL 8.4-10.2 ergb=840) AST (SGOT) (BEAKER) (test 155 U/L 5-34 uuap=089) ALT (SGPT) (BEAKER) (test 151 U/L 6-55 lsoq=184) EGFR (BEAKER) (test 166 mL/min/1.73 sq ESTIMATED GFR IS NOT roll=9933) m ACCURATE CREATININE CLEARANCE IN PREDICTING GLOMERULAR FILTRATION RATE. ESTIMATED GFR IS NOT APPLICABLE FOR DIALYSIS PATIENTS. CBC W/PLT COUNT & AUTO [id number] 05:30:00 Test Item Value Reference Range Comments WHITE BLOOD CELL COUNT (BEAKER) (test scvu=057) 5.1 K/ L 3.5-10.5 RED BLOOD CELL COUNT (BEAKER) (test pifr=738) 3.81 M/ L 4.63-6.08 HEMOGLOBIN (BEAKER) (test jvhg=791) 13.1 GM/DL 13.7-17.5 HEMATOCRIT (BEAKER) (test qiuc=444) 37.6 % 40.1-51.0 MEAN CORPUSCULAR VOLUME (BEAKER) (test czox=085) 98.7 fL 79.0-92.2 MEAN CORPUSCULAR HEMOGLOBIN (BEAKER) (test 34.4 pg 25.7-32.2 kzvn=807) MEAN CORPUSCULAR HEMOGLOBIN CONC (BEAKER) (test 34.8 GM/DL 32.3-36.5 kbzp=767) RED CELL DISTRIBUTION WIDTH (BEAKER) (test 11.5 % 11.6-14.4 iuoh=611) PLATELET COUNT (BEAKER) (test yuhd=357) 152 K/CU MM 150-450 MEAN PLATELET VOLUME (BEAKER) (test almn=556) 10.2 fL 9.4-12.4 NUCLEATED RED BLOOD CELLS (BEAKER) (test 0 /100 WBC 0-0 wgpe=787) NEUTROPHILS RELATIVE PERCENT (BEAKER) (test 71 % okme=862) LYMPHOCYTES RELATIVE PERCENT (BEAKER) (test 14 % oisi=650) MONOCYTES RELATIVE PERCENT (BEAKER) (test 11 % puqb=020) EOSINOPHILS RELATIVE PERCENT (BEAKER) (test 2 % qndt=674) BASOPHILS RELATIVE PERCENT (BEAKER) (test 1 % trlb=203) NEUTROPHILS ABSOLUTE COUNT (BEAKER) (test 3.66 K/ L 1.78-5.38 cpfg=095) LYMPHOCYTES ABSOLUTE COUNT (BEAKER) (test 0.71 K/ L 1.32-3.57 yjao=789) MONOCYTES ABSOLUTE COUNT (BEAKER) (test 0.58 K/ L 0.30-0.82 cftx=100) EOSINOPHILS ABSOLUTE COUNT (BEAKER) (test 0.10 K/ L 0.04-0.54 lakx=904) BASOPHILS ABSOLUTE COUNT (BEAKER) (test 0.04 K/ L 0.01-0.08 bold=602) IMMATURE GRANULOCYTES-RELATIVE PERCENT (BEAKER) 1 % 0-1 (test faxr=3304) POCT-GLUCOSE [id number] 11:54:00 Test Item Value Reference Range Comments POC-GLUCOSE METER (BEAKER) 83 mg/dL 70-110 TESTED AT [facility] [address] [facility] (test cuqg=8329) [facility] [address] [id number] 05:54:00 Test Item Value Reference Range Comments PHOSPHORUS (BEAKER) (test lzhw=318) 2.3 mg/dL 2.3-4.7 [id number] 05:54:00 Test Item Value Reference Range Comments MAGNESIUM (BEAKER) (test mlch=144) 2.0 mg/dL 1.6-2.6 COMPREHENSIVE METABOLIC [id number] 05:54:00 Test Item Value Reference Range Comments TOTAL PROTEIN (BEAKER) 6.0 gm/dL 6.0-8.3 (test owvx=883) ALBUMIN (BEAKER) (test 3.2 g/dL 3.5-5.0 wnec=8299) ALKALINE PHOSPHATASE 134 U/L 40-150 (BEAKER) (test zbuz=745) BILIRUBIN TOTAL (BEAKER) 1.1 mg/dL 0.2-1.2 (test dnzb=161) SODIUM (BEAKER) (test 134 meq/L 136-145 fruz=349) POTASSIUM (BEAKER) (test 3.6 meq/L 3.5-5.1 kpty=361) CHLORIDE (BEAKER) (test 100 meq/L 98-107 kxue=896) CO2 (BEAKER) (test 26 meq/L 22-29 gvqd=320) BLOOD UREA NITROGEN 4 mg/dL 7-21 (BEAKER) (test oafo=216) CREATININE (BEAKER) (test 0.54 mg/dL 0.57-1.25 tfqi=326) GLUCOSE RANDOM (BEAKER) 141 mg/dL 70-105 (test wonn=715) CALCIUM (BEAKER) (test 8.8 mg/dL 8.4-10.2 tyce=138) AST (SGOT) (BEAKER) (test 183 U/L 5-34 jeac=621) ALT (SGPT) (BEAKER) (test 149 U/L 6-55 junq=940) EGFR (BEAKER) (test 176 mL/min/1.73 sq ESTIMATED GFR IS NOT yqyu=5715) m ACCURATE CREATININE CLEARANCE IN PREDICTING GLOMERULAR FILTRATION RATE. ESTIMATED GFR IS NOT APPLICABLE FOR DIALYSIS PATIENTS. LACTIC ACID, [id number] 05:35:00 Test Item Value Reference Range Comments LACTATE BLOOD VENOUS (2) (BEAKER) (test 1.0 mmol/L 0.5-2.2 acxh=3721) CBC W/PLT COUNT & AUTO [id number] 05:23:00 Test Item Value Reference Range Comments WHITE BLOOD CELL COUNT (BEAKER) (test phfl=430) 5.0 K/ L 3.5-10.5 RED BLOOD CELL COUNT (BEAKER) (test ycmf=356) 3.88 M/ L 4.63-6.08 HEMOGLOBIN (BEAKER) (test gvfr=157) 13.0 GM/DL 13.7-17.5 HEMATOCRIT (BEAKER) (test xqmq=878) 38.5 % 40.1-51.0 MEAN CORPUSCULAR VOLUME (BEAKER) (test zftl=280) 99.2 fL 79.0-92.2 MEAN CORPUSCULAR HEMOGLOBIN (BEAKER) (test 33.5 pg 25.7-32.2 dsva=342) MEAN CORPUSCULAR HEMOGLOBIN CONC (BEAKER) (test 33.8 GM/DL 32.3-36.5 tdgq=557) RED CELL DISTRIBUTION WIDTH (BEAKER) (test 11.6 % 11.6-14.4 lodl=090) PLATELET COUNT (BEAKER) (test jctg=991) 113 K/CU MM 150-450 MEAN PLATELET VOLUME (BEAKER) (test cppe=403) 10.7 fL 9.4-12.4 NUCLEATED RED BLOOD CELLS (BEAKER) (test 0 /100 WBC 0-0 oieg=211) NEUTROPHILS RELATIVE PERCENT (BEAKER) (test 72 % oisi=752) LYMPHOCYTES RELATIVE PERCENT (BEAKER) (test 15 % bwgl=010) MONOCYTES RELATIVE PERCENT (BEAKER) (test 10 % vugq=674) EOSINOPHILS RELATIVE PERCENT (BEAKER) (test 2 % aqni=112) BASOPHILS RELATIVE PERCENT (BEAKER) (test 1 % rhol=915) NEUTROPHILS ABSOLUTE COUNT (BEAKER) (test 3.56 K/ L 1.78-5.38 gfxa=922) LYMPHOCYTES ABSOLUTE COUNT (BEAKER) (test 0.76 K/ L 1.32-3.57 lkyn=400) MONOCYTES ABSOLUTE COUNT (BEAKER) (test 0.49 K/ L 0.30-0.82 qcld=863) EOSINOPHILS ABSOLUTE COUNT (BEAKER) (test 0.10 K/ L 0.04-0.54 bvqz=789) BASOPHILS ABSOLUTE COUNT (BEAKER) (test 0.04 K/ L 0.01-0.08 wgjp=196) IMMATURE GRANULOCYTES-RELATIVE PERCENT (BEAKER) 1 % 0-1 (test iwlp=5758) POCT-GLUCOSE [id number] 18:44:00 Test Item Value Reference Range Comments POC-GLUCOSE METER (BEAKER) 100 mg/dL 70-110 TESTED AT [facility] [address] [facility] (test xgaq=4786) [facility] [address] [id number] 17:58:00 Test Item Value Reference Range Comments PHOSPHORUS (BEAKER) (test onan=401) 2.3 mg/dL 2.3-4.7 [id number] 17:58:00 Test Item Value Reference Range Comments MAGNESIUM (BEAKER) (test kkqw=643) 1.8 mg/dL 1.6-2.6 BASIC METABOLIC [id number] 17:58:00 Test Item Value Reference Range Comments SODIUM (BEAKER) (test 137 meq/L 136-145 loxn=274) POTASSIUM (BEAKER) (test 3.6 meq/L 3.5-5.1 qgnx=869) CHLORIDE (BEAKER) (test 102 meq/L 98-107 dnyv=088) CO2 (BEAKER) (test 26 meq/L 22-29 acmo=680) BLOOD UREA NITROGEN 4 mg/dL 7-21 (BEAKER) (test euxj=512) CREATININE (BEAKER) (test 0.54 mg/dL 0.57-1.25 xzrr=023) GLUCOSE RANDOM (BEAKER) 123 mg/dL 70-105 (test xhls=799) CALCIUM (BEAKER) (test 8.7 mg/dL 8.4-10.2 chsp=884) EGFR (BEAKER) (test 177 mL/min/1.73 sq m ESTIMATED GFR IS NOT fufi=9087) ACCURATE CREATININE CLEARANCE IN PREDICTING GLOMERULAR FILTRATION RATE. ESTIMATED GFR IS NOT APPLICABLE FOR DIALYSIS PATIENTS. [id number] 16:55:00 Test Item Value Reference Range Comments MAGNESIUM (BEAKER) (test 1.6 mg/dL 1.6-2.6 Specimen slightly hemolyzed lqvv=786) [id number] 16:55:00 Test Item Value Reference Range Comments PHOSPHORUS (BEAKER) (test 2.3 mg/dL 2.3-4.7 Specimen slightly hemolyzed nqzt=035) BASIC METABOLIC [id number] 16:55:00 Test Item Value Reference Range Comments SODIUM (BEAKER) (test 138 meq/L 136-145 gfkh=919) POTASSIUM (BEAKER) (test 3.7 meq/L 3.5-5.1 Specimen slightly cjte=847) hemolyzed CHLORIDE (BEAKER) (test 105 meq/L 98-107 pvar=730) CO2 (BEAKER) (test 23 meq/L 22-29 kmaa=569) BLOOD UREA NITROGEN 4 mg/dL 7-21 (BEAKER) (test mlab=719) CREATININE (BEAKER) (test 0.51 mg/dL 0.57-1.25 Specimen slightly bmyr=108) hemolyzed GLUCOSE RANDOM (BEAKER) 99 mg/dL 70-105 (test demw=774) CALCIUM (BEAKER) (test 8.0 mg/dL 8.4-10.2 awkb=295) EGFR (BEAKER) (test 190 mL/min/1.73 sq m ESTIMATED GFR IS NOT kura=6466) ACCURATE CREATININE CLEARANCE IN PREDICTING GLOMERULAR FILTRATION RATE. ESTIMATED GFR IS NOT APPLICABLE FOR DIALYSIS PATIENTS. POCT-GLUCOSE [id number] 12:41:00 Test Item Value Reference Range Comments POC-GLUCOSE METER (BEAKER) 100 mg/dL 70-110 TESTED AT [facility] [address] [facility] (test yglr=6587) [facility] [address] POCT-GLUCOSE [id number] 08:07:00 Test Item Value Reference Range Comments POC-GLUCOSE METER (BEAKER) 99 mg/dL 70-110 TESTED AT [facility] [address] [facility] (test ytkn=5922) [facility] [address] U/S, ABDOMINAL, [id number] 08:05:00Abdomen limited area? Add comment if clarification [...] Verified Date /Time: 09/30/2018 08:05:48 Reading Location: [facility] [id number] Ultrasound Reading Room [id number] 07:23:00 Test Item Value Reference Range Comments PHOSPHORUS (BEAKER) (test pgeh=104) 1.2 mg/dL 2.3-4.7 [id number] 07:11:00 Test Item Value Reference Range Comments MAGNESIUM (BEAKER) (test rgoi=717) 2.3 mg/dL 1.6-2.6 COMPREHENSIVE METABOLIC [id number] 07:11:00 Test Item Value Reference Range Comments TOTAL PROTEIN (BEAKER) 5.8 gm/dL 6.0-8.3 (test xsfm=777) ALBUMIN (BEAKER) (test 3.1 g/dL 3.5-5.0 dadm=4101) ALKALINE PHOSPHATASE 141 U/L 40-150 (BEAKER) (test takf=509) BILIRUBIN TOTAL (BEAKER) 1.1 mg/dL 0.2-1.2 (test mrca=097) SODIUM (BEAKER) (test 135 meq/L 136-145 kmuk=197) POTASSIUM (BEAKER) (test 3.7 meq/L 3.5-5.1 vdbk=582) CHLORIDE (BEAKER) (test 104 meq/L 98-107 jghs=823) CO2 (BEAKER) (test 24 meq/L 22-29 euxw=674) BLOOD UREA NITROGEN 5 mg/dL 7-21 (BEAKER) (test uwvt=843) CREATININE (BEAKER) (test 0.39 mg/dL 0.57-1.25 qryp=072) GLUCOSE RANDOM (BEAKER) 114 mg/dL 70-105 (test exug=657) CALCIUM (BEAKER) (test 8.3 mg/dL 8.4-10.2 eamq=825) AST (SGOT) (BEAKER) (test 354 U/L 5-34 jaqj=397) ALT (SGPT) (BEAKER) (test 188 U/L 6-55 bney=326) EGFR (BEAKER) (test 258 mL/min/1.73 sq ESTIMATED GFR IS NOT yeer=9151) m ACCURATE CREATININE CLEARANCE IN PREDICTING GLOMERULAR FILTRATION RATE. ESTIMATED GFR IS NOT APPLICABLE FOR DIALYSIS PATIENTS. LACTIC ACID, [id number] 04:07:00 Test Item Value Reference Range Comments LACTATE BLOOD VENOUS (2) 0.8 mmol/L 0.5-2.2 Specimen slightly hemolyzed (BEAKER) (test smts=8391) CBC W/PLT COUNT & AUTO [id number] 04:00:00 Test Item Value Reference Range Comments WHITE BLOOD CELL COUNT (BEAKER) (test ccej=124) 6.1 K/ L 3.5-10.5 RED BLOOD CELL COUNT (BEAKER) (test yqny=790) 3.87 M/ L 4.63-6.08 HEMOGLOBIN (BEAKER) (test wolf=534) 13.3 GM/DL 13.7-17.5 HEMATOCRIT (BEAKER) (test dyie=162) 39.1 % 40.1-51.0 MEAN CORPUSCULAR VOLUME (BEAKER) (test vufq=175) 101.0 fL 79.0-92.2 MEAN CORPUSCULAR HEMOGLOBIN (BEAKER) (test 34.4 pg 25.7-32.2 fwnm=412) MEAN CORPUSCULAR HEMOGLOBIN CONC (BEAKER) (test 34.0 GM/DL 32.3-36.5 lsif=161) RED CELL DISTRIBUTION WIDTH (BEAKER) (test 12.1 % 11.6-14.4 yxvc=605) PLATELET COUNT (BEAKER) (test vzws=727) 105 K/CU MM 150-450 MEAN PLATELET VOLUME (BEAKER) (test sdgs=661) 10.4 fL 9.4-12.4 NUCLEATED RED BLOOD CELLS (BEAKER) (test 0 /100 WBC 0-0 olrt=019) NEUTROPHILS RELATIVE PERCENT (BEAKER) (test 74 % gsdo=791) LYMPHOCYTES RELATIVE PERCENT (BEAKER) (test 14 % pvqv=594) MONOCYTES RELATIVE PERCENT (BEAKER) (test 10 % tshg=931) EOSINOPHILS RELATIVE PERCENT (BEAKER) (test 1 % vuur=799) BASOPHILS RELATIVE PERCENT (BEAKER) (test 1 % ewqq=472) NEUTROPHILS ABSOLUTE COUNT (BEAKER) (test 4.52 K/ L 1.78-5.38 rzov=550) LYMPHOCYTES ABSOLUTE COUNT (BEAKER) (test 0.84 K/ L 1.32-3.57 wwpt=093) MONOCYTES ABSOLUTE COUNT (BEAKER) (test 0.62 K/ L 0.30-0.82 djlp=888) EOSINOPHILS ABSOLUTE COUNT (BEAKER) (test 0.06 K/ L 0.04-0.54 amuh=916) BASOPHILS ABSOLUTE COUNT (BEAKER) (test 0.03 K/ L 0.01-0.08 moah=299) IMMATURE GRANULOCYTES-RELATIVE PERCENT (BEAKER) 0 % 0-1 (test qpbn=4346) [id number] 01:32:00 Test Item Value Reference Range Comments PROCALCITONIN (BEAKER) (test tknd=1726) 0.48 ng/mL <0.05 SEPSIS RISK (ng/mL)Low: 0.05-0.50Intermediate: 0.51-2.00High: & gt;=2.01BASIC METABOLIC [id number] 00:58:00 Test Item Value Reference Range Comments SODIUM (BEAKER) (test 135 meq/L 136-145 xwpk=735) POTASSIUM (BEAKER) (test 3.4 meq/L 3.5-5.1 kizw=653) CHLORIDE (BEAKER) (test 104 meq/L 98-107 txfh=366) CO2 (BEAKER) (test 22 meq/L 22-29 jiov=383) BLOOD UREA NITROGEN 7 mg/dL 7-21 (BEAKER) (test rzsn=036) CREATININE (BEAKER) (test 0.55 mg/dL 0.57-1.25 cwiw=779) GLUCOSE RANDOM (BEAKER) 113 mg/dL 70-105 (test uzrs=535) CALCIUM (BEAKER) (test 8.4 mg/dL 8.4-10.2 jakt=829) EGFR (BEAKER) (test 174 mL/min/1.73 sq m ESTIMATED GFR IS NOT gnfl=9985) ACCURATE CREATININE CLEARANCE IN PREDICTING GLOMERULAR FILTRATION RATE. ESTIMATED GFR IS NOT APPLICABLE FOR DIALYSIS PATIENTS. [id number] 00:57:00 Test Item Value Reference Range Comments MAGNESIUM (BEAKER) (test frhs=866) 1.5 mg/dL 1.6-2.6 LACTIC ACID, [id number] 00:37:00 Test Item Value Reference Range Comments LACTATE BLOOD VENOUS (2) 0.7 mmol/L 0.5-2.2 Specimen moderately hemolyzed (BEAKER) (test hzfn=2767) POCT-GLUCOSE [id number] 00:25:00 Test Item Value Reference Range Comments POC-GLUCOSE METER (BEAKER) 101 mg/dL 70-110 TESTED AT [address] (test kfmu=0639) [place] [id number] POCT-GLUCOSE [id number] 18:32:00 Test Item Value Reference Range Comments POC-GLUCOSE METER (BEAKER) 76 mg/dL 70-110 TESTED AT [address] (test jafw=7028) [place] [address] [id number] 15:15:00 Test Item Value Reference Range Comments POTASSIUM (BEAKER) (test cmfk=171) 3.4 meq/L 3.5-5.1 [id number] 15:15:00 Test Item Value Reference Range Comments MAGNESIUM (BEAKER) (test wnze=161) 2.1 mg/dL 1.6-2.6 CT, [id number] 12:38:00FINAL REPORT CT abdomen with and without [...] Verified Date/Time: 09/29/2018 12:38:07 Reading Location : [address] Consult Reading Room POCT-GLUCOSE [id number] 11:49:00 Test Item Value Reference Range Comments POC-GLUCOSE METER (BEAKER) 83 mg/dL 70-110 TESTED AT [facility] [address] [place] [address] (test erun=1283) [facility] [address] [id number] 10:49:00 Test Item Value Reference Range Comments TRIGLYCERIDES (BEAKER) (test 71 mg/dL Specimen slightly hemolyzed dxuy=579) TRIGLYCERIDE REFERENCE RANGELow Risk <150Borderline Risk 150-199High Risk 200-499Very High Risk>=[id number] 05:09:00 Test Item Value Reference Range Comments LIPASE (BEAKER) (test mfno=732) > U/L 8-78 [id number] 04:35:00 Test Item Value Reference Range Comments MAGNESIUM (BEAKER) (test 1.6 mg/dL 1.6-2.6 Specimen slightly hemolyzed paed=196) [id number] 04:35:00 Test Item Value Reference Range Comments PHOSPHORUS (BEAKER) (test 3.2 mg/dL 2.3-4.7 Specimen slightly hemolyzed tsac=137) COMPREHENSIVE METABOLIC [id number] 04:35:00 Test Item Value Reference Range Comments TOTAL PROTEIN (BEAKER) 6.8 gm/dL 6.0-8.3 Specimen slightly (test rfxx=956) hemolyzed ALBUMIN (BEAKER) (test 3.8 g/dL 3.5-5.0 Specimen slightly cdoc=9945) hemolyzed ALKALINE PHOSPHATASE 130 U/L 40-150 (BEAKER) (test ctsn=475) BILIRUBIN TOTAL (BEAKER) 1.7 mg/dL 0.2-1.2 Specimen slightly (test mwqm=979) hemolyzed SODIUM (BEAKER) (test 138 meq/L 136-145 oicf=783) POTASSIUM (BEAKER) (test 3.7 meq/L 3.5-5.1 Specimen slightly tmvf=876) hemolyzed CHLORIDE (BEAKER) (test 103 meq/L 98-107 wyiq=373) CO2 (BEAKER) (test 17 meq/L 22-29 ismj=438) BLOOD UREA NITROGEN 9 mg/dL 7-21 (BEAKER) (test djvr=096) CREATININE (BEAKER) (test 0.65 mg/dL 0.57-1.25 Specimen slightly qxja=317) hemolyzed GLUCOSE RANDOM (BEAKER) 103 mg/dL 70-105 (test fswg=034) CALCIUM (BEAKER) (test 8.7 mg/dL 8.4-10.2 etpa=478) AST (SGOT) (BEAKER) (test 151 U/L 5-34 Specimen slightly aruw=938) hemolyzed ALT (SGPT) (BEAKER) (test 143 U/L 6-55 Specimen slightly vtln=035) hemolyzed EGFR (BEAKER) (test 143 mL/min/1.73 sq ESTIMATED GFR IS NOT dpxy=5282) m ACCURATE CREATININE CLEARANCE IN PREDICTING GLOMERULAR FILTRATION RATE. ESTIMATED GFR IS NOT APPLICABLE FOR DIALYSIS PATIENTS. PROTHROMBIN [id number] 04:34:00 Test Item Value Reference Range Comments PROTIME (BEAKER) (test rfny=492) 14.6 seconds 11.7-14.7 INR (BEAKER) (test mkoa=618) 1.1 <=5.9 RECOMMENDED COUMADIN/WARFARIN INR THERAPY RANGESSTANDARD DOSE: 2.0 - 3.0 Includes: PROPHYLAXIS forvenous thrombosis, systemic embolization; TREATMENT for venous thrombosis and/or pulmonary embolus.HIGH RISK: Target INR is 2.5-3.5 for patients with mechanical heart valves.CBC W/PLT COUNT & AUTO [id number] 04:09:00 Test Item Value Reference Range Comments WHITE BLOOD CELL COUNT (BEAKER) (test dhys=737) 6.2 K/ L 3.5-10.5 RED BLOOD CELL COUNT (BEAKER) (test cpua=871) 4.33 M/ L 4.63-6.08 HEMOGLOBIN (BEAKER) (test pedl=274) 15.0 GM/DL 13.7-17.5 HEMATOCRIT (BEAKER) (test afnj=566) 43.2 % 40.1-51.0 MEAN CORPUSCULAR VOLUME (BEAKER) (test dpvp=151) 99.8 fL 79.0-92.2 MEAN CORPUSCULAR HEMOGLOBIN (BEAKER) (test 34.6 pg 25.7-32.2 nxdj=674) MEAN CORPUSCULAR HEMOGLOBIN CONC (BEAKER) (test 34.7 GM/DL 32.3-36.5 ngdy=445) RED CELL DISTRIBUTION WIDTH (BEAKER) (test 12.4 % 11.6-14.4 qmvv=654) PLATELET COUNT (BEAKER) (test fpif=201) 160 K/CU MM 150-450 MEAN PLATELET VOLUME (BEAKER) (test kjev=064) 10.4 fL 9.4-12.4 NUCLEATED RED BLOOD CELLS (BEAKER) (test 0 /100 WBC 0-0 zcfe=899) NEUTROPHILS RELATIVE PERCENT (BEAKER) (test 81 % jnin=438) LYMPHOCYTES RELATIVE PERCENT (BEAKER) (test 7 % jdtc=793) MONOCYTES RELATIVE PERCENT (BEAKER) (test 10 % pzqu=084) EOSINOPHILS RELATIVE PERCENT (BEAKER) (test 0 % xdwu=444) BASOPHILS RELATIVE PERCENT (BEAKER) (test 1 % fari=999) NEUTROPHILS ABSOLUTE COUNT (BEAKER) (test 5.01 K/ L 1.78-5.38 fvam=548) LYMPHOCYTES ABSOLUTE COUNT (BEAKER) (test 0.44 K/ L 1.32-3.57 dwxt=620) MONOCYTES ABSOLUTE COUNT (BEAKER) (test 0.62 K/ L 0.30-0.82 ymms=023) EOSINOPHILS ABSOLUTE COUNT (BEAKER) (test 0.01 K/ L 0.04-0.54 uufm=427) BASOPHILS ABSOLUTE COUNT (BEAKER) (test 0.03 K/ L 0.01-0.08 rmdd=326) IMMATURE GRANULOCYTES-RELATIVE PERCENT (BEAKER) 1 % 0-1 (test xbsy=8917)
[2019-06-09 12:25] LABS: Basophils % 0.3 % (0-1.3); Hematocrit 37.8 % (39.6-49.0); Lymphocytes % 13.9 % (15.3-44.8); MPV 7.7 fL (7.6-11.3); RBC Red Blood Cell Count 4.26 M/uL (4.33-5.43)
[2019-06-09] MEDS ORDERED: ONDANSETRON 4 MG/2 ML VIAL ONE (12:36)
[2019-06-09] MEDS ORDERED: MORPHINE 4 MG/ML SYR ONE ×2 (12:36→15:24)
[2019-06-09] MEDS ORDERED: NA CHLORIDE 0.9% 2,000 ML ONE (12:36)
[2019-06-09 12:44] LABS: Urine Blood NEGATIVE (NEG); Urine Glucose NEGATIVE (NEG); Urine Protein NEGATIVE (NEG); Urine pH 6.5 (5.0-7.0)
[2019-06-09 12:50] LABS: ALT/SGPT 40 U/L (12-78); AST/SGOT 33 U/L (15-37); Albumin 4.2 g/dL (3.4-5.0); Alkaline Phosphatase 111 U/L (45-117); BUN Blood Urea Nitrogen 14 mg/dL (7-18); Bicarbonate 25 mmol/L (21-32); Bilirubin Direct < 0.1 mg/dL (0-0.2); Bilirubin Total 0.2 mg/dL (0.2-1.0); Glucose Level 97 mg/dL (74-106); Lipase 201 U/L (73-393); Protein, Total 8.1 g/dL (6.4-8.2); Sodium Level 140 mmol/L (136-145)
[2019-06-09 13:11] LABS: Barbiturates NEGATIVE (NEGATIVE); Benzodiazepines POSITIVE (NEGATIVE); Cocaine NEGATIVE (NEGATIVE); METHAMPHETAM NEGATIVE (NEGATIVE); Methadone NEGATIVE (NEGATIVE); Opiates NEGATIVE (NEGATIVE); Phencyclidine NEGATIVE (NEGATIVE); THC Cannibis NEGATIVE (NEGATIVE)
[2019-06-09 13:27] LABS: Protime INR 1.06
--- NOTE | 2019-06-09 14:02 | RAD REPORT ---
EXAM DESCRIPTION: CT - Abdomen Pelvis W Contrast - 06/09/2019 1:26 pm CLINICAL HISTORY: ABD PAIN, suspected pancreatitis, hematuria, fever COMPARISON: CT imaging June 01 TECHNIQUE: Biphasic, helical CT imaging of the abdomen and pelvis was performed following 100 ml non -ionic IV contrast. No oral contrast. All CT scans are performed using dose optimization technique as appropriate and may include automated exposure control or mA/KV adjustment according to patient size. FINDINGS: No suspicious findings in the lung bases. Small hiatal hernia is present. Liver size is normal. No focal lesions in the liver parenchyma. No focal splenic process. No gallblad porter or biliary tree abnormality. No mass in the body or tail of the pancreas. No peripancreatic stranding in this region. Trace amount of stranding is seen around the pancreatic head. Along the superior margin of the head body junction of the pancreas there are 2 small cystic or hypodense areas 17 and 13 mm in size. These may be is ch ronic pseudo cysts. Overall the pancreatic and peripancreatic stranding pattern is improved compared to June 01. Patient has numerous varices and dilated veins of the upper abdomen matching prior imaging. No portal vein abnormality. Symmetric renal function is seen with no hydronephrosis or suspicious renal mass. No pyelonephritis o r acute parenchymal process. No bladder abnormalities. No adrenal abnormalities. No gastric dilatation or wall thickening. No gross abnormality of the duodenal C-loop. Duodenum is le ss prominent than seen June 01. No dilated small bowel. Patient has a large amount of stool dilat ing the rectum and distending the sigmoid colon. There is an overall moderately large quantity of sto ol filling the colon. No free air, free fluid or pneumatosis. No abnormal fluid in the peritoneal cavity. No hernia, mass or bulky lymphadenopathy. No suspicious bony findings. IMPRESSION: Minimal pancreatitis changes remain around the head of the pancreas. This could be minim al acute or residual pancreatitis. Patient probably has 2 small pseudocysts along the superior margin of the pancreas at the head body j unction. Duodenum is less prominent than seen previously. Overall the pancreatitis changes are improved compar ed to June 01 imaging. Large stool volume dilating the rectum and distending the sigmoid colon. Overall patient has a modera tely large stool volume filling the remainder of the colon.
--- NOTE | 2019-06-09 15:10 | ER ---
Nurse's Notes [facility] Name: Jonathan Gutierrez Age: 33 yrs Sex: Male : 1985 Arrival Date: 06/09/2019 Time: 11:10 Bed 27 Private MD: Diagnosis: Abdominal tenderness;Acute pancreatitis;Pseudocyst of pancreas Presentation: 06/09 11:31 Presenting complaint: Patient states: I think my pancreatitis is flaring, having blood la1 in my urine and fever at home. Transition of care: patient was not received from another setting of care. Onset of symptoms was June 09, 2019. Risk Assessment: Do you want to hurt yourself or someone else? Patient reports no desire to harm self or others. Initial Sepsis Screen: Does the patient have a suspected source of infection?. Care prior to arrival: None. 11:31 Method Of Arrival: Ambulatory la1 11:31 Acuity: NEO 3 la1 12:28 Initial Sepsis Screen: Does the patient meet any 2 criteria? No. Patient's initial mg2 sepsis screen is negative. Historical: - Allergies: 11:32 No Known Allergies; la1 - Home Meds: 12:29 Creon Oral [Active]; Folic Acid Oral [Active]; Thiamine Oral [Active]; mg2 - PMHx: 11:32 ADD/ADHD; etoh abuse; Hypertension; liver "spot"; Pancreatitis; la1 - Immunization history:: Adult Immunizations up to date. - Social history:: Smoking status: Patient uses tobacco products, smokes one pack cigarettes per day. - Ebola Screening: : No symptoms or risks identified at this time. - Family history:: not pertinent. Screenin:27 Abuse screen: Denies threats or abuse. Denies injuries from another. Nutritional mg2 screening: No deficits noted. Tuberculosis screening: No symptoms or risk factors identified. Fall Risk IV access (20 points). Assessment: 12:24 General: Appears in no apparent distress. comfortable, Behavior is calm, cooperative. mg2 Pain: Complains of pain in abdomen Pain does not radiate. Pain currently is 8 out of 10 on a pain scale. Quality of pain is described as aching, Pain began gradually, 2-3 days ago. Is intermittent. Neuro: Level of Consciousness is awake, alert, obeys commands, Oriented to person, place, time, situation. Cardiovascular: Capillary refill < 3 seconds Patient's skin is warm and dry. Respiratory: Airway is patent Respiratory effort is even, unlabored, Respiratory pattern is regular, symmetrical. GI: Bowel sounds present X 4 quads. Abd is soft. : Reports blood in the urine. EENT: No signs and/or symptoms were reported regarding the EENT system. Derm: Skin is intact, is healthy with good turgor, Skin is pink, warm \\T\\ dry. normal. Musculoskeletal: Circulation, motion, and sensation intact. Capillary refill < 3 seconds. 13:58 Reassessment: patient verbalizes abdominal pain. provider informed and said to wait for mg2 ct result. patient made aware and he understood. 14:31 Reassessment: Patient appears in no apparent distress at this time. Patient and/or mg2 family updated on plan of care and expected duration. Pain level reassessed. 15:30 Reassessment: Patient states symptoms have improved. mg2 Vital Signs: 11:33 Pulse 115; Resp 16; Temp 98.8; Pulse Ox 98% on R/A; Weight 74.84 kg; Height 5 ft. 11 la1 in. (180.34 cm); 11:34 BP 175 / 125; la1 13:59 BP 180 / 105; Pulse 93; Resp 18; Pulse Ox 100% on R/A; Pain 7/10; mg2 15:30 BP 156 / 78; Pulse 90; Resp 18; Temp 98.5; Pulse Ox 100% on R/A; Pain 5/10; mg2 11:33 Body Mass Index 23.01 (74.84 kg, 180.34 cm) la1 ED Course: 11:10 Patient arrived in ED. as 11:31 Arm band placed on left wrist. la1 11:32 Triage completed. la1 11:59 Prateek Lacey MD is Attending Physician. beck 12:00 Cheikh Jordan RN is Primary Nurse. mg2 12:19 Urine collected: clean catch specimen, clear, nahmoy colored. jp3 12:27 Patient has correct armband on for positive identification. Pulse ox on. NIBP on. Door mg2 closed. Warm blanket given. 12:28 No provider procedures requiring assistance completed. Inserted saline lock: 20 gauge mg2 in right forearm, using aseptic technique. Blood collected. 12:41 Urine Drug Screen Sent. jp3 12:43 Legal drug screen obtained per protocol. jp3 12:57 CT Abd/Pelvis - IV Contrast Only In Process Unspecified. EDMN 13:05 EKG done, by wireless cellular technician. reviewed by Prateek Lacey MD. [facility] 15:08 Diane Almaraz MD is Referral Physician. [facility] 15:08 Leopoldo Walsh MD is Referral Physician. [facility] 15:32 IV discontinued, intact, bleeding controlled, No redness/swelling at site. Pressure mg2 dressing applied. Administered Medications: 12:51 Drug: Zofran 4 mg Route: IVP; Site: right forearm; mg2 14:16 Follow up: Response: No adverse reaction mg2 12:52 Drug: NS 0.9% 1000 ml Route: IV; Rate: 1 bolus; Site: right forearm; mg2 14:17 Follow up: Response: No adverse reaction; IV Status: Completed infusion; IV Intake: mg2 1000ml 12:52 Drug: morphine 4 mg Route: IVP; Site: right forearm; mg2 14:17 Follow up: Response: No adverse reaction; RASS: Alert and Calm (0) mg2 13:48 Drug: NS 0.9% 1000 ml Route: IV; Rate: 1 bolus; Site: right forearm; mg2 14:50 Follow up: Response: No adverse reaction; IV Status: Completed infusion; IV Intake: mg2 1000ml 15:29 Drug: morphine 4 mg Route: IVP; Site: right forearm; mg2 15:29 Follow up: Response: No adverse reaction; Medication administered at discharge. mg2 Intake: 14:17 IV: 1000ml; Total: 1000ml. mg2 14:50 IV: 1000ml; Total: 2000ml. mg2 Outcome: 15:09 Discharge ordered by . [facility] 15:33 Discharged to home ambulatory. mg2 15:33 Condition: stable 15:33 Discharge instructions given to patient, Instructed on discharge instructions, follow up and referral plans. medication usage, Demonstrated understanding of instructions, follow-up care, medications, Prescriptions given X 4. 15:34 Patient left the ED. mg2 Signatures: Dispatcher [employer] EDMN Prateek Lacey MD MD cha Martinez, Amelia as Attema, Lee, RN RN la1 Cheikh Jordan RN RN mg2 Latonia Mitchell 3 Jose Luis Chandler 3
--- NOTE | 2019-06-09 15:11 | EDPHYS ---
Physician Documentation [facility] Name: Jonathan Gutierrez Age: 33 yrs Sex: Male : 1985 Arrival Date: 06/09/2019 Time: 11:10 Bed 27 Private MD: ED Physician Prateek Lacey HPI: 06/09 15:01 This 33 yrs old Male presents to ER via Ambulatory with complaints of Urinary beck Problem, Abdominal Pain. 15:01 The patient presents with abdominal pain in the epigastric area, in the upper abdomen. beck Onset: The symptoms/episode began/occurred 3 day(s) ago. The patient presents to the emergency department with nausea, vomiting, abdominal pain, of the epigastric area, right upper quadrant and left upper quadrant. Onset: The symptoms/episode began/occurred 3 day(s) ago. Possible causes: unknown. The symptoms are aggravated by nothing. The symptoms are alleviated by nothing. The symptoms do not radiate. Associated signs and symptoms: The patient has no apparent associated signs or symptoms. Historical: - Allergies: 11:32 No Known Allergies; la1 - Home Meds: 12:29 Creon Oral [Active]; Folic Acid Oral [Active]; Thiamine Oral [Active]; mg2 - PMHx: 11:32 ADD/ADHD; etoh abuse; Hypertension; liver "spot"; Pancreatitis; la1 - Immunization history:: Adult Immunizations up to date. - Social history:: Smoking status: Patient uses tobacco products, smokes one pack cigarettes per day. - Ebola Screening: : No symptoms or risks identified at this time. - Family history:: not pertinent. ROS: 15:01 Constitutional: Negative for fever, chills, and weight loss, Eyes: Negative for injury, beck pain, redness, and discharge, ENT: Negative for injury, pain, and discharge, Neck: Negative for injury, pain, and swelling, Cardiovascular: Negative for chest pain, palpitations, and edema, Respiratory: Negative for shortness of breath, cough, wheezing, and pleuritic chest pain, Back: Negative for injury and pain, : Negative for injury, bleeding, discharge, and swelling, MS/Extremity: Negative for injury and deformity, Skin: Negative for injury, rash, and discoloration, Neuro: Negative for headache, weakness, numbness, tingling, and seizure, Psych: Negative for depression, anxiety, suicide ideation, homicidal ideation, and hallucinations, Allergy/Immunology: Negative for hives, rash, and allergies, Endocrine: Negative for neck swelling, polydipsia, polyuria, polyphagia, and marked weight changes, Hematologic/Lymphatic: Negative for swollen nodes, abnormal bleeding, and unusual bruising. 15:01 Abdomen/GI: Positive for abdominal pain, nausea and vomiting, of the epigastric area, right upper quadrant and left upper quadrant. Exam: 15:01 Constitutional: This is a well developed, well nourished patient who is awake, alert, beck and in no acute distress. Head/Face: Normocephalic, atraumatic. Eyes: Pupils equal round and reactive to light, extra-ocular motions intact. Lids and lashes normal. Conjunctiva and sclera are non-icteric and not injected. Cornea within normal limits. Periorbital areas with no swelling, redness, or edema. ENT: Nares patent. No nasal discharge, no septal abnormalities noted. Tympanic membranes are normal and external auditory canals are clear. Oropharynx with no redness, swelling, or masses, exudates, or evidence of obstruction, uvula midline. Mucous membranes moist. Neck: Trachea midline, no thyromegaly or masses palpated, and no cervical lymphadenopathy. Supple, full range of motion without nuchal rigidity, or vertebral point tenderness. No Meningismus. Chest/axilla: Normal chest wall appearance and motion. Nontender with no deformity. No lesions are appreciated. Cardiovascular: Regular rate and rhythm with a normal S1 and S2. No gallops, murmurs, or rubs. Normal PMI, no JVD. No pulse deficits. Abdomen/GI: Soft, non-tender, with normal bowel sounds. No distension or tympany. No guarding or rebound. No evidence of tenderness throughout. Back: No spinal tenderness. No costovertebral tenderness. Full range of motion. Male : Normal genitalia with no discharge or lesions. Skin: Warm, dry with normal turgor. Normal color with no rashes, no lesions, and no evidence of cellulitis. MS/ Extremity: Pulses equal, no cyanosis. Neurovascular intact. Full, normal range of motion. Neuro: Awake and alert, GCS 15, oriented to person, place, time, and situation. Cranial nerves II-XII grossly intact. Motor strength 5/5 in all extremities. Sensory grossly intact. Cerebellar exam normal. Normal gait. Psych: Awake, alert, with orientation to person, place and time. Behavior, mood, and affect are within normal limits. 15:01 Respiratory: the patient does not display signs of respiratory distress, Respirations: normal, Breath sounds: are clear throughout. 15:01 Abdomen/GI: Inspection: abdomen appears normal, Bowel sounds: normal, Palpation: mild abdominal tenderness, in all quadrants, Liver: no appreciated palpable abnormalities, Hernia: tenderness, is not appreciated. Vital Signs: 11:33 Pulse 115; Resp 16; Temp 98.8; Pulse Ox 98% on R/A; Weight 74.84 kg; Height 5 ft. 11 la1 in. (180.34 cm); 11:34 BP 175 / 125; la1 13:59 BP 180 / 105; Pulse 93; Resp 18; Pulse Ox 100% on R/A; Pain 7/10; mg2 15:30 BP 156 / 78; Pulse 90; Resp 18; Temp 98.5; Pulse Ox 100% on R/A; Pain 5/10; mg2 11:33 Body Mass Index 23.01 (74.84 kg, 180.34 cm) la1 MDM: 11:59 Patient medically screened. [facility] [place] 15:07 Data reviewed: vital signs, nurses notes, lab test result(s), EKG, radiologic studies, [facility] [place] CT scan. 06/09 12:01 Order name: Basic Metabolic Panel; Complete Time: 13:22 mg2 06/09 12:01 Order name: CBC with Diff; Complete Time: 13:22 mg2 06/09 12:01 Order name: Creatinine for Radiology; Complete Time: 13:22 mg2 06/09 12:01 Order name: Hepatic Function; Complete Time: 13:22 mg2 06/09 12:01 Order name: Lipase; Complete Time: 13:22 mg2 06/09 12:25 Order name: Urine Dipstick--Ancillary (enter results); Complete Time: 13:22 bd 06/09 12:31 Order name: Acetaminophen; Complete Time: 13:43 beck 06/09 12:31 Order name: ETOH Level; Complete Time: 13:43 beck 06/09 12:31 Order name: PT-INR; Complete Time: 13:43 beck 06/09 12:31 Order name: Ptt, Activated; Complete Time: 13:43 beck 06/09 12:31 Order name: Salicylate; Complete Time: 14:14 [facility] [place] 06/09 12:31 Order name: Urine Drug Screen; Complete Time: 13:22 [facility] 06/09 12:31 Order name: CT Abd/Pelvis - IV Contrast Only; Complete Time: 15:01 [facility] 06/09 12:01 Order name: IV Saline Lock; Complete Time: 12:22 [facility] [place] 06/09 12:01 Order name: Labs collected and sent; Complete Time: 12:22 [facility] [place] 06/09 12:01 Order name: Urine Dipstick-Ancillary (obtain specimen); Complete Time: 12:17 [facility] [place] 06/09 12:31 Order name: EKG; Complete Time: 12:32 [facility] [place] 06/09 12:31 Order name: EKG - Nurse/Tech; Complete Time: 13:48 [facility] 06/09 13:22 Order name: Vital Signs; Complete Time: 14:16 [facility] Administered Medications: 12:51 Drug: Zofran 4 mg Route: IVP; Site: right forearm; mg2 14:16 Follow up: Response: No adverse reaction mg2 12:52 Drug: NS 0.9% 1000 ml Route: IV; Rate: 1 bolus; Site: right forearm; mg2 14:17 Follow up: Response: No adverse reaction; IV Status: Completed infusion; IV Intake: mg2 1000ml 12:52 Drug: morphine 4 mg Route: IVP; Site: right forearm; mg2 14:17 Follow up: Response: No adverse reaction; RASS: Alert and Calm (0) mg2 13:48 Drug: NS 0.9% 1000 ml Route: IV; Rate: 1 bolus; Site: right forearm; mg2 14:50 Follow up: Response: No adverse reaction; IV Status: Completed infusion; IV Intake: mg2 1000ml 15:29 Drug: morphine 4 mg Route: IVP; Site: right forearm; mg2 15:29 Follow up: Response: No adverse reaction; Medication administered at discharge. mg2 Disposition: 06/09/19 15:09 Discharged to Home. Impression: Abdominal tenderness, Acute pancreatitis, Pseudocyst of pancreas. - Condition is Stable. - Discharge Instructions: Abdominal Pain, Adult, Constipation, Adult, Acute Pancreatitis, Acute Pancreatitis, [id number], Constipation, Adult, [id number], Abdominal Pain, Adult, [id number], Chronic Pancreatitis. - Prescriptions for Bentyl 20 mg Oral Tablet - take 1 tablet by ORAL route every 6 hours As needed; 20 tablet. Pepcid 20 mg Oral Tablet - take 1 tablet by ORAL route every 12 hours for 10 days; 20 tablet. Zofran 4 mg Oral Tablet - take 1 tablet by ORAL route every 12 hours As needed; 20 tablet. Miralax 17 gram/dose Oral - take 1 packet by ORAL route every 12 hours dilute powder in 8 ounces of water or juice; 20 packet. - Medication Reconciliation Form, Thank You Letter, Antibiotic Education, Prescription Opioid Use form. - Follow up: Private Physician; When: 2 - 3 days; Reason: Recheck today's complaints, Continuance of care, Re-evaluation by your physician. Follow up: Diane Almaraz MD; When: 2 - 3 days; Reason: Recheck today's complaints, Re-evaluation by your physician. Follow up: Leopoldo Walsh MD; When: 2 - 3 days; Reason: Recheck today's complaints, Re-evaluation by your physician. - Problem is new. - Symptoms have improved. Signatures: Dispatcher [employer] EDAZ Prateek Lacey MD MD cha Attema, Lee, RN RN la1 Cheikh Jordan RN RN mg2 Corrections: (The following items were deleted from the chart) 15:34 15:09 06/09/2019 15:09 Discharged to Home. Impression: Abdominal tenderness; Acute mg2 pancreatitis; Pseudocyst of pancreas. Condition is Stable. Forms are Medication Reconciliation Form, Thank You Letter, Antibiotic Education, Prescription Opioid Use. Follow up: Private Physician; When: 2 - 3 days; Reason: Recheck today's complaints, Continuance of care, Re-evaluation by your physician. Follow up: Diane Almaraz; When: 2 - 3 days; Reason: Recheck today's complaints, Re-evaluation by your physician. Follow up: Leopoldo Walsh; When: 2 - 3 days; Reason: Recheck today's complaints, Re-evaluation by your physician. Problem is new. Symptoms have improved. beck
--- NOTE | 2019-06-09 16:30 | EKG ---
Test Date: 2019-06-09 Test Time: 12:59:49 Cook Fry: MARYAN MEASUREMENT RESULTS: Intervals: Rate: 90 [place]: 132 QRSD: 86 QT: 358 QTc: 437 [place]: P: 64 [place]: 132 QRS: 75 T: 49 INTERPRETIVE STATEMENTS: Normal sinus rhythm Normal ECG Compared to ECG 05/25/2019 16:13:10 Sinus tachycardia no longer present T-wave abnormality no longer present Electronically Signed On 06-09-19 16:29:35 [employer]IST by Siddharth De Leon
[2019-06-09 18:14] VITALS: O2SAT 100
[2019-06-09 18:15] VITALS: BP 156/78; TEMP 98.5
== END 2019-06-09 15:34 | disposition home or self-care (01) ==
LOC: ER 11:09
DX: K85.90 Acute pancreatitis without necrosis or infection, unspecified (principal); K86.3 Pseudocyst of pancreas; I10 Essential (primary) hypertension; F90.9 Attention-deficit hyperactivity disorder, unspecified type; F17.210 Nicotine dependence, cigarettes, uncomplicated
CPT/HCPCS: 36415; 74177; 80048; 80076; 80307; 80320; 80329; 81003; 83690; 85025; 85610; 85730; 93005; 96361; 96374; 96375; 99284; J2405; J7030; Q9967

== ENCOUNTER 2019-06-17 16:00 | Inpatient (IN) | payer SELFPAY ==
[2019-06-17] MEDS ORDERED: NA CHLORIDE 0.9% 2,000 ML ONE (17:12)
[2019-06-17] MEDS ORDERED: MEPERIDINE HCL 50 MG/ML ONE (17:12)
[2019-06-17 17:45] LABS: Absolute Lymphocytes (CBC) 1.3 K/uL (0.7-4.9); Basophils % 0.5 % (0-1.3); Hematocrit 39.4 % (39.6-49.0); MPV 7.8 fL (7.6-11.3); RBC Red Blood Cell Count 4.39 M/uL (4.33-5.43)
[2019-06-17 17:59] LABS: ALT/SGPT 36 U/L (12-78); AST/SGOT 20 U/L (15-37); Albumin 4.3 g/dL (3.4-5.0); Alkaline Phosphatase 100 U/L (45-117); BUN Blood Urea Nitrogen 14 mg/dL (7-18); Bicarbonate 27 mmol/L (21-32); Bilirubin Direct < 0.1 mg/dL (0-0.2); Bilirubin Total 0.2 mg/dL (0.2-1.0); Glucose Level 96 mg/dL (74-106); Lipase 219 U/L (73-393); Potassium 3.3 mmol/L (3.5-5.1); Protein, Total 8.3 g/dL (6.4-8.2); Sodium Level 143 mmol/L (136-145)
[2019-06-17] MEDS ORDERED: HYDROMORPHONE HCL 1 MG/ML INJ ONE (18:01)
--- NOTE | 2019-06-17 18:39 | RAD REPORT ---
EXAM DESCRIPTION: CT - Abdomen Pelvis W Contrast - 06/17/2019 6:16 pm CLINICAL HISTORY: Abdominal pain hematochezia COMPARISON: June 09, 2019 TECHNIQUE: Computed axial tomography of the abdomen pelvis was obtained. 100 cc Isovue-300 was admin istered intravenously. Oral contrast was not requested which limits evaluation of bowel. All CT scans are performed using dose optimization technique as appropriate and may include automated exposure control or mA/KV adjustment according to patient size. FINDINGS: Mildly nodular liver. Varices. Mild splenomegaly. Small nonobstructing bilateral renal calculi Pancreas is mildly inhomogeneous. Mild stranding within the peripancreatic fat. A 3.2 centimeter pseu docyst near the yu hepatis is unchanged There is no evidence of diverticulitis. The wall of the transverse colon appears mildly thickened IMPRESSION: Mild pancreatitis. 3.2 centimeters pseudocyst is unchanged Mild thickening of the wall of the transverse colon may indicate a mild colitis
--- NOTE | 2019-06-17 18:51 | ER ---
Nurse's Notes [facility] Name: Jonathan Gutierrez Age: 33 yrs Sex: Male : 1985 Arrival Date: 06/17/2019 Time: 16:03 Bed 16 Private MD: Diagnosis: Left sided colitis;Rectal bleeding;Alcohol-induced chronic pancreatitis Presentation: 06/17 16:23 Presenting complaint: Patient states: "I came a week ago and saw Dr. Lacey, but aj1 today I started having bloody stools, its just straight red blood, my whole left side keep hurting and he told me if any of that stuff happened I need to come back" Denies vomiting. Denies fever. Transition of care: patient was not received from another setting of care. Onset of symptoms was June 17, 2019. Risk Assessment: Do you want to hurt yourself or someone else? Patient reports no desire to harm self or others. Initial Sepsis Screen: Does the patient meet any 2 criteria? HR > 90 bpm. No. Patient's initial sepsis screen is negative. Does the patient have a suspected source of infection? Yes: Acute abdominal pain. Care prior to arrival: None. 16:23 Method Of Arrival: Ambulatory aj1 16:23 Acuity: NEO 2 aj1 Triage Assessment: 16:25 General: Appears in no apparent distress. uncomfortable, Behavior is calm, cooperative, aj1 appropriate for age. Pain: Pain currently is 8 out of 10 on a pain scale. Neuro: Level of Consciousness is awake, alert, obeys commands. Cardiovascular: Patient's skin is warm and dry. Respiratory: Airway is patent Respiratory effort is even, unlabored, Respiratory pattern is regular, symmetrical. GI: Reports bloody stool. Historical: - Allergies: 16:25 No Known Allergies; aj1 - Home Meds: 16:25 Lisinopril Oral [Active]; Pepcid Oral [Active]; aj1 - PMHx: 16:25 ADD/ADHD; etoh abuse; Hypertension; liver "spot"; Pancreatitis; aj1 - Immunization history:: Flu vaccine is up to date. - Social history:: Smoking status: Patient uses tobacco products, smokes one-half pack cigarettes per day. - Ebola Screening: : Patient denies travel to an Ebola-affected area in the 21 days before illness onset. - Family history:: not pertinent. - Hospitalizations: : No recent hospitalization is reported. Screenin:45 Abuse screen: Denies threats or abuse. Denies injuries from another. Nutritional jl7 screening: No deficits noted. Tuberculosis screening: No symptoms or risk factors identified. Fall Risk IV access (20 points). Total Schmidt Fall Scale indicates No Risk (0-24 pts). Assessment: 16:45 General: Appears in no apparent distress. uncomfortable, Behavior is calm, cooperative, jl7 appropriate for age. Pain: Complains of pain in left lower quadrant Pain currently is 9 out of 10 on a pain scale. Quality of pain is described as aching, Is continuous. Neuro: Level of Consciousness is awake, alert, obeys commands, Oriented to person, place, time, situation. Cardiovascular: Patient's skin is warm and dry. Respiratory: Airway is patent Respiratory effort is even, unlabored, Respiratory pattern is regular, symmetrical. GI: Abdomen is non-distended, Bowel sounds present X 4 quads. Reports rectal bleeding. : No signs and/or symptoms were reported regarding the genitourinary system. EENT: No signs and/or symptoms were reported regarding the EENT system. Derm: Skin is pink, warm \\T\\ dry. 19:00 Reassessment: Patient appears in no apparent distress at this time. Patient and/or jb4 family updated on plan of care and expected duration. Pain level reassessed. Patient is alert, oriented x 3, equal unlabored respirations, skin warm/dry/pink. 19:53 Reassessment: Patient appears in no apparent distress at this time. Patient and/or jb4 family updated on plan of care and expected duration. Pain level reassessed. Patient is alert, oriented x 3, equal unlabored respirations, skin warm/dry/pink. 20:45 Reassessment: Patient appears in no apparent distress at this time. Patient and/or jb4 family updated on plan of care and expected duration. Pain level reassessed. Patient is alert, oriented x 3, equal unlabored respirations, skin warm/dry/pink. Vital Signs: 16:25 BP 139 / 117; Pulse 136; Resp 20; Temp 98.6; Pulse Ox 100% on R/A; Weight 74.84 kg (R); aj1 Height 5 ft. 11 in. (180.34 cm) (R); 17:59 BP 205 / 113; Pulse 101; Resp 18; Pulse Ox 99% on R/A; mh5 18:27 BP 161 / 106; Pulse 93; Resp 16 S; Pulse Ox 99% on R/A; jl7 18:27 BP 161 / 106; Pulse 92; Resp 17; Temp 98.3(O); Pulse Ox 99% ; mh5 19:45 BP 156 / 95; Pulse 83; Resp 16; Pulse Ox 99% on R/A; jb4 20:45 BP 146 / 76; Pulse 84; Resp 16; Pulse Ox 98% on R/A; jb4 16:25 Body Mass Index 23.01 (74.84 kg, 180.34 cm) aj1 ED Course: 16:03 Patient arrived in ED. as 16:25 Triage completed. aj1 16:25 Arm band placed on Patient placed in an exam room. aj1 16:32 Trenton Lubin MD is Attending Physician. rn 17:06 Toy Canada RN is Primary Nurse. jl7 17:08 Radiology exam delayed due to lab results not completed at this time. (BUN/Creatinine). 2 17:20 Initial lab(s) drawn, by me, sent to lab. Inserted saline lock: 20 gauge in left jl7 forearm, using aseptic technique. Blood collected. 18:00 Patient has correct armband on for positive identification. Placed in gown. Bed in low mh5 position. Call light in reach. Side rails up X 1. Warm blanket given. Pulse ox on. NIBP on. 18:17 CT Abd/Pelvis - IV Contrast Only In Process Unspecified. EDMS 18:50 Wilton Mancilla MD is Hospitalizing Provider. rn 20:45 No provider procedures requiring assistance completed. Patient admitted, IV remains in jb4 place. Administered Medications: 17:20 Drug: NS 0.9% 1000 ml Route: IV; Rate: 1000 ml; Site: left forearm; jl7 19:00 Follow up: Response: No adverse reaction; IV Status: Completed infusion; IV Intake: jb4 1000ml 17:21 Drug: NS 0.9% 1000 ml Route: IV; Rate: 1000 ml; Site: left forearm; jl7 17:22 Drug: Demerol 50 mg Route: IVP; Site: left forearm; jl7 17:55 Follow up: Response: No adverse reaction; Pain is unchanged, physician notified jl7 18:00 Drug: Dilaudid 1 mg Route: IVP; Site: left forearm; jl7 19:00 Follow up: Response: No adverse reaction; Pain is decreased jb4 19:52 Drug: Cipro 400 mg Volume: 200 ml; Route: IVPB; Infused Over: 60 mins; Site: left jb4 antecubital; 20:48 Follow up: Response: No adverse reaction; IV Status: Infusion continued upon admission jb4 19:52 Drug: Flagyl 500 mg Volume: 100 ml; Route: IVPB; Rate: 200 ml/hr; Infused Over: 30 jb4 mins; Site: left antecubital; 20:22 Follow up: Response: No adverse reaction; IV Status: Completed infusion jb4 Intake: 19:00 IV: 1000ml; Total: 1000ml. jb4 Outcome: 18:51 Decision to Hospitalize by Provider. rn 20:45 Admitted to Tele accompanied by nurse, via wheelchair, room 401, with chart, Report jb4 called to AMALIA Cook 20:45 Condition: stable 20:45 Discharge instructions given to patient, Instructed on the need for admit, Demonstrated understanding of instructions. 20:49 Patient left the ED. jb4 Signatures: Dispatcher [employer] EDMS Ele Bailey RN RN [email or web address] Thao Romero Roman, MD MD rn Bryson, James, RN RN jb4 Carli Romero Toy Maldonado RN RN jl7 Carolin Lopez 2 Corrections: (The following items were deleted from the chart) 19:53 19:00 Reassessment: Patient appears in no apparent distress at this time. Patient jb4 and/or family updated on plan of care and expected duration. Pain level reassessed. Patient is alert, oriented x 3, equal unlabored respirations, skin warm/dry/pink. jb4
--- NOTE | 2019-06-17 18:51 | EDPHYS ---
Physician Documentation [facility] Name: Jonathan Gutierrez Age: 33 yrs Sex: Male : 1985 Arrival Date: 06/17/2019 Time: 16:03 Bed 16 Private MD: ED Physician Trenton Lubin HPI: 06/17 17:01 This 33 yrs old Male presents to ER via Ambulatory with complaints of Bloody rn Stools, Vomiting, High Blood Pressure. 17:01 The patient presents to the emergency department with nausea, diarrhea, abdominal pain. rn Onset: The symptoms/episode began/occurred 2 day(s) ago. Possible causes: unknown. The symptoms are aggravated by nothing. The symptoms are alleviated by nothing. Severity of symptoms: At their worst the symptoms were moderate in the emergency department the symptoms are unchanged. The patient has experienced similar episodes in the past. Reports rectal bleeding and frequent diarrhea, + left sided abd pain, reports has not had ETOH in almost a month. No trauma. Has hx of upper and lower GI bleed in past. No syncope or sob. . Historical: - Allergies: 16:25 No Known Allergies; aj1 - Home Meds: 16:25 Lisinopril Oral [Active]; Pepcid Oral [Active]; aj1 - PMHx: 16:25 ADD/ADHD; etoh abuse; Hypertension; liver "spot"; Pancreatitis; aj1 - Immunization history:: Flu vaccine is up to date. - Social history:: Smoking status: Patient uses tobacco products, smokes one-half pack cigarettes per day. - Ebola Screening: : Patient denies travel to an Ebola-affected area in the 21 days before illness onset. - Family history:: not pertinent. - Hospitalizations: : No recent hospitalization is reported. ROS: 18:03 Constitutional: Negative for fever, chills, and weight loss, Eyes: Negative for injury, rn pain, redness, and discharge, Cardiovascular: Negative for chest pain, palpitations, and edema, Respiratory: Negative for shortness of breath, cough, wheezing, and pleuritic chest pain, Abdomen/GI: + abd pain on left side, + nausea, negative for hematemesis, + rectal bleeding MS/Extremity: Negative for injury and deformity, Skin: Negative for injury, rash, and discoloration, Neuro: Negative for headache, numbness, tingling, and seizure. Exam: 18:03 Constitutional: Thin male, appears uncomfortable Head/Face: Normocephalic, rn atraumatic. ENT: dry MM Cardiovascular: tachycardic, regular, no murmur Respiratory: Speaking full sentences, no difficulty breathing Abdomen/GI: soft, + left sided abd tenderness, no rebound, no masses MS/ Extremity: Pulses equal, no cyanosis. Neurovascular intact. Full, normal range of motion. Equal circumference. Neuro: Awake and alert, GCS 15, oriented to person, place, time, and situation. Cranial nerves II-XII grossly intact. Motor strength 5/5 in all extremities. Sensory grossly intact. Cerebellar exam normal. Vital Signs: 16:25 BP 139 / 117; Pulse 136; Resp 20; Temp 98.6; Pulse Ox 100% on R/A; Weight 74.84 kg (R); aj1 Height 5 ft. 11 in. (180.34 cm) (R); 17:59 BP 205 / 113; Pulse 101; Resp 18; Pulse Ox 99% on R/A; mh5 18:27 BP 161 / 106; Pulse 93; Resp 16 S; Pulse Ox 99% on R/A; jl7 18:27 BP 161 / 106; Pulse 92; Resp 17; Temp 98.3(O); Pulse Ox 99% ; mh5 19:45 BP 156 / 95; Pulse 83; Resp 16; Pulse Ox 99% on R/A; jb4 20:45 BP 146 / 76; Pulse 84; Resp 16; Pulse Ox 98% on R/A; jb4 16:25 Body Mass Index 23.01 (74.84 kg, 180.34 cm) aj MDM: 16:32 Patient medically screened. rn 18:49 Differential diagnosis: Nonspecific abd pain, gastroenteritis, lower GI bleed, colitis, rn internal hemorrhoids. Data reviewed: vital signs, nurses notes, lab test result(s), radiologic studies, CT scan, and as a result, I will admit patient. Counseling: I had a detailed discussion with the patient and/or guardian regarding: the historical points, exam findings, and any diagnostic results supporting the discharge/admit diagnosis, lab results, radiology results, the need for further work-up and treatment in the hospital. Response to treatment: the patient's symptoms have mildly improved after treatment, and as a result, I will admit patient. Admission orders: after a detailed discussion of the patient's condition and case, the admit orders are written by me. ED course: Pt with colitis and rectal bleeding, will admit to Dr. Mancilla for further care, hemoglobin 13, stable vitals, improved with pain meds, states sober for 1 month.. 06/17 16:34 Order name: Basic Metabolic Panel; Complete Time: 18:09 rn 06/17 16:34 Order name: CBC with Diff; Complete Time: 18:09 rn 06/17 16:34 Order name: Creatinine for Radiology; Complete Time: 18:09 rn / 16:34 Order name: Hepatic Function; Complete Time: 18:09 rn / 16:34 Order name: Lipase; Complete Time: 18:09 rn 06/17 16:34 Order name: ETOH Level; Complete Time: 18:09 rn / 16:34 Order name: Type And Screen; Complete Time: 18:24 rn 06/17 19:18 Order name: Urine Dipstick--Ancillary (enter results) ds4 06/17 19:25 Order name: CBC with Automated Diff EDVT 06/17 19:25 Order name: CBC with Automated Diff EDVT 06/17 19:25 Order name: Comprehensive Metabolic Panel EDVT 06/17 19:25 Order name: Comprehensive Metabolic Panel EDVT 06/17 19:25 Order name: Lipase EDVT 06/17 19:25 Order name: Lipase EDVT 06/17 16:34 Order name: CT Abd/Pelvis - IV Contrast Only; Complete Time: 18:45 rn 06/17 19:25 Order name: Lipid Profile EDVT 06/17 19:25 Order name: Lipid Profile EDVT 06/17 19:25 Order name: CBC with Automated Diff EDVT 06/17 19:28 Order name: Vitamin B12 Level EDVT 06/17 19:28 Order name: Ferritin EDVT 06/17 19:28 Order name: Lactic Dehydrogenase EDVT 06/17 19:28 Order name: Retic Count EDVT 06/17 19:28 Order name: Transferrin Sat/Iron Binding EDVT 06/17 16:34 Order name: IV Saline Lock; Complete Time: 17:54 rn 06/17 16:34 Order name: Labs collected and sent; Complete Time: 17:54 rn 06/17 19:25 Order name: CONS Pharmacy Consult EDVT 06/17 19:25 Order name: NPO EDVT Administered Medications: 17:20 Drug: NS 0.9% 1000 ml Route: IV; Rate: 1000 ml; Site: left forearm; jl7 19:00 Follow up: Response: No adverse reaction; IV Status: Completed infusion; IV Intake: jb4 1000ml 17:21 Drug: NS 0.9% 1000 ml Route: IV; Rate: 1000 ml; Site: left forearm; jl7 17:22 Drug: Demerol 50 mg Route: IVP; Site: left forearm; jl7 17:55 Follow up: Response: No adverse reaction; Pain is unchanged, physician notified jl7 18:00 Drug: Dilaudid 1 mg Route: IVP; Site: left forearm; jl7 19:00 Follow up: Response: No adverse reaction; Pain is decreased jb4 19:52 Drug: Cipro 400 mg Volume: 200 ml; Route: IVPB; Infused Over: 60 mins; Site: left jb4 antecubital; 20:48 Follow up: Response: No adverse reaction; IV Status: Infusion continued upon admission jb4 19:52 Drug: Flagyl 500 mg Volume: 100 ml; Route: IVPB; Rate: 200 ml/hr; Infused Over: 30 jb4 mins; Site: left antecubital; 20:22 Follow up: Response: No adverse reaction; IV Status: Completed infusion jb4 Disposition: 06/17/19 18:51 Hospitalization ordered by Wilton Mancilla for Inpatient Admission. Preliminary diagnosis are Left sided colitis, Rectal bleeding, Alcohol-induced chronic pancreatitis. - Bed requested for Telemetry/MedSurg (Inpatient). - Status is Inpatient Admission. jb4 - Condition is Stable. - Problem is new. - Symptoms have improved. UTI on Admission? No Signatures: Dispatcher [employer] EDVT Ele Bailey RN RN aj1 Joselyn Lal RN RN mw Nieto, Roman, MD MD rn Bryson, James, RN RN jb4 Toy [place] RN RN jl7 Corrections: (The following items were deleted from the chart) 19:35 19:28 Type and Screen ordered. [facility] EDVT 19:41 18:51 Hospitalization Ordered by Wilton Mancilla MD for Inpatient Admission. Preliminary diagnosis is Left sided colitis; Rectal bleeding; Alcohol-induced chronic pancreatitis. Bed requested for Telemetry/MedSurg (Inpatient). Status is Inpatient Admission. Condition is Stable. Problem is new. Symptoms have improved. UTI on Admission? No. rn 19:47 19:41 06/17/2019 18:51 Hospitalization Ordered by Wilton Mancilla MD for Inpatient mw Admission. Preliminary diagnosis is Left sided colitis; Rectal bleeding; Alcohol-induced chronic pancreatitis. Bed requested for Telemetry/MedSurg (Inpatient). Status is Inpatient Admission. Condition is Stable. Problem is new. Symptoms have improved. UTI on Admission? No. mw 20:49 19:47 06/17/2019 18:51 Hospitalization Ordered by Wilton Mancilla MD for Inpatient jb4 Admission. Preliminary diagnosis is Left sided colitis; Rectal bleeding; Alcohol-induced chronic pancreatitis. Bed requested for Telemetry/MedSurg (Inpatient). Status is Inpatient Admission. Condition is Stable. Problem is new. Symptoms have improved. UTI on Admission? No. mw
[2019-06-17] MEDS ORDERED: CIPROFLOXACIN 400mg IV 400 MG/200 ML BAG IV ONE (19:11)
[2019-06-17] MEDS ORDERED: METRONIDAZOLE 500mg IVPB 500 MG/100 ML BAG IV ONE (19:11)
[2019-06-17] MEDS ORDERED: MORPHINE 2 MG/ML SYR IV PRN (19:20)
[2019-06-17] MEDS ORDERED: ACETAMINOPHEN 500 MG TAB PO PRN (19:20)
[2019-06-17] MEDS ORDERED: SODIUM CHLORIDE 0.9% 10ML INJ IV PRN (19:25)
[2019-06-17 19:35] LABS: Urine Blood TRACE (NEG); Urine Glucose NEGATIVE (NEG); Urine Protein NEGATIVE (NEG); Urine Specific Gravity 1.015 (1.005-1.030)
[2019-06-17] MEDS: ONDANSETRON 4 MG/2 ML VIAL IV SCH ×2 (20:00→23:29)
[2019-06-17] MEDS ORDERED: MORPHINE 2 MG/ML SYR ONE (20:19)
[2019-06-17] MEDS ORDERED: ONDANSETRON 4 MG/2 ML VIAL ONE (20:19)
[2019-06-17] MEDS ORDERED: TEMAZEPAM 15 MG CAP PO ONE (21:00)
[2019-06-17] MEDS: PANTOPRAZOLE 40 MG INJ IVP SCH (21:57)
[2019-06-17] MEDS: NICOTINE 21 MG/PAT TD SCH (21:58)
[2019-06-17] MEDS: Levofloxacin500mg IV 500 MG/100 ML BAG IV SCH (21:58)
[2019-06-17] MEDS: NA CHLORIDE 0.9% 1,000 ML IV SCH (21:59)
[2019-06-17 22:32] VITALS: BMI 23.0
[2019-06-17] MEDS ORDERED: HYDROMORPHONE HCL 1 MG/ML INJ IV ONE (22:50)
[2019-06-17 22:59] LABS: Absolute Lymphocytes (CBC) 1.6 K/uL (0.7-4.9); Basophils % 0.7 % (0-1.3); Hematocrit 35.7 % (39.6-49.0); Lymphocytes % 21.9 % (15.3-44.8); MPV 7.5 fL (7.6-11.3); RBC Red Blood Cell Count 3.98 M/uL (4.33-5.43)
[2019-06-17 23:36] LABS: Ferritin 8.7 ng/mL (26-388)
[2019-06-18] MEDS: METRONIDAZOLE 500mg IVPB 500 MG/100 ML BAG IV SCH ×3 (00:49→16:58)
[2019-06-18] MEDS: NA CHLORIDE 0.9% 1,000 ML IV SCH ×5 (02:40→21:10)
[2019-06-18] MEDS ORDERED: CYANOCOBALAMIN 1000MCG/ML INJ IM ONE (03:55)
--- NOTE | 2019-06-18 03:59 | P.PN ---
Date of Service: 06/18/19 Notified nurse to give additional dose of dilaudid and notify MD if patient becomes lethargic
[2019-06-18] MEDS: ONDANSETRON 4 MG/2 ML VIAL IV SCH ×6 (04:10→23:11)
[2019-06-18] MEDS: HYDROMORPHONE HCL 1 MG/ML INJ IV PRN ×4 (04:10→23:11)
[2019-06-18 04:24] LABS: Absolute Lymphocytes (CBC) 1.4 K/uL (0.7-4.9); Basophils % 0.6 % (0-1.3); Hematocrit 34.7 % (39.6-49.0); Lymphocytes % 20.7 % (15.3-44.8); MPV 7.7 fL (7.6-11.3); RBC Red Blood Cell Count 3.87 M/uL (4.33-5.43)
[2019-06-18 04:53] LABS: ALT/SGPT 25 U/L (12-78); AST/SGOT 16 U/L (15-37); Albumin 3.2 g/dL (3.4-5.0); Alkaline Phosphatase 75 U/L (45-117); BUN Blood Urea Nitrogen 10 mg/dL (7-18); Bicarbonate 26 mmol/L (21-32); Bilirubin Total 0.3 mg/dL (0.2-1.0); Glucose Level 92 mg/dL (74-106); HDL Cholesterol 40 mg/dL (40-60); LDL Cholesterol, Calculated 75 (<130); Lipase 143 U/L (73-393); Potassium 3.6 mmol/L (3.5-5.1); Protein, Total 6.4 g/dL (6.4-8.2); Sodium Level 145 mmol/L (136-145)
[2019-06-18] MEDS: NICOTINE 21 MG/PAT TD SCH (10:20)
[2019-06-18] MEDS: PANTOPRAZOLE 40 MG INJ IVP SCH (10:21)
--- NOTE | 2019-06-18 15:39 | P.HP ---
Certification for Inpatient Patient admitted to: Inpatient With expected LOS: >2 Midnights Patient will require the following post-hospital care: None Practitioner: I am a practitioner with admitting privileges, knowledge of patient current condition, hospital course, and medical plan of care. Services: Services provided to patient in accordance with Admission requirements found in Title 42 Section 412.3 of the Code of Federal Regulations Patient History Date of Service: 06/17/19 Reason for admission: Acute on chronic pancreatitis History of Present Illness: Patient is a 33-year-old gentleman who came to the hospital with pancreatitis. Patient had but history of pancreatitis and has been told that he has chronic pancreatitis. Patient is a alcoholic but has been sober for the last 3 months. He was eating a larger meal than normal when he sticks suddenly had severe epigastric pain. He came into the ER for further evaluation. In the emergency room his labs revealed a normal lipase. CT scan did not reveal any abnormal findings except for a pseudocyst. Patient will be admitted to the hospital for treatment of acute pancreatitis. Patient also mentioned incidentally that he noticed some lower GI bleeding. No active bleeding at this time. CT did reveal colitis and will continue to treat with IV antibiotics. Allergies No Known Allergies Allergy (Verified 06/01/19 21:20) Home Medications: Pantoprazole [Protonix Tab*] 40 mg PO DAILY #30 tab 06/04/19 Thiamine HCl 100 mg PO DAILY #30 tablet 06/04/19 Lisinopril 20 mg PO DAILY 06/17/19 - Past Medical/Surgical History Has patient received pneumonia vaccine in the past: No Diabetic: No -: Chronic pancreatitis -: Fatty liver -: Alcohol abuse -: Tobacco abuse -: Gastrointestinal bleeding -: HTN -: tonsillectomy Psychosocial/ Personal History: Patient is single - Family History Father Notes: alcohol abuse with myocardial infarction Mother Notes: reports no medical history - Social History Smoking Status: Current every day smoker Alcohol use: No CD- Drugs: No Caffeine use: Yes Place of Residence: Home Review of Systems 10-point ROS is otherwise unremarkable Physical Examination - Vital Signs Temperature: 98.0 F Blood Pressure: 149/75 Pulse: 91 Respirations: 17 Pulse Ox (%): 99 - Physical Exam General: Alert, In no apparent distress, Oriented x3 HEENT: Atraumatic, PERRLA, Mucous membr. moist/pink, EOMI, Sclerae nonicteric Neck: Supple, 2+ carotid pulse no bruit, No LAD, Without JVD or thyroid abnormality Respiratory: Clear to auscultation bilaterally, Normal air movement Cardiovascular: Regular rate/rhythm, Normal S1 S2, No murmurs Gastrointestinal: Soft and benign, Non-distended, No rebound, No guarding, Tenderness Musculoskeletal: No clubbing, No swelling, No tenderness Integumentary: No rashes Neurological: Normal gait, Normal speech, Normal strength at 5/5 x4 extr, Normal tone, Sensation intact, Cranial nerves 3-12 intact, Normal affect Lymphatics: No axilla or inguinal lymphadenopathy - Studies Laboratory Data (last 24 hrs) 06/17/19 17:20: Creatinine 0.79 06/17/19 17:20: WBC 8.5 D, Hgb 13.1 L, Hct 39.4 L, Plt Count 208 D 06/17/19 17:20: Sodium 143, Potassium 3.3 L, BUN 14, Creatinine 0.78, Glucose 96 , Total Bilirubin 0.2, AST 20, ALT 36, Alkaline Phosphatase 100, Lipase 219 Assessment & Plan - Problems (Diagnosis) (1) Acute on chronic pancreatitis Current Visit: Yes Status: Acute (2) History of alcohol abuse Current Visit: Yes Status: Acute (3) Colitis Current Visit: Yes Status: Acute (4) Lower gastrointestinal bleeding Current Visit: Yes Status: Acute (5) Fatty liver disease, nonalcoholic Current Visit: Yes Status: Acute - Plan 1. Continue with IV hydration 2. Continue with IV antibiotics 3. Continue with pain control 4. NPO 5. GI consultation; outpatient colonoscopy in 6-12 weeks 6. Serial H&H, and we will monitor CBC, BMP, LFTs and lipase along with electrolytes. 7. GI and DVT prophylaxis Discharge Plan: Home Plan to discharge in: 48 Hours - Advance Directives Does patient have a Living Will: No Does patient have a Durable POA for Healthcare: No - Code Status/Comfort Care Code Status Assessed: Yes Code Status: Full Code Critical Care: No Time Spent Managing PTS Care (In Minutes): 45
[2019-06-18] MEDS: Levofloxacin500mg IV 500 MG/100 ML BAG IV SCH (20:22)
[2019-06-18] MEDS: HYDROCODONE/APAP 5/325 MG TAB PO PRN (20:22)
[2019-06-18 21:51] VITALS: O2SAT 100
[2019-06-18] MEDS ORDERED: TEMAZEPAM 15 MG CAP PO SCH (23:45)
[2019-06-19] MEDS: METRONIDAZOLE 500mg IVPB 500 MG/100 ML BAG IV SCH ×2 (01:23→08:00)
[2019-06-19] MEDS: HYDROCODONE/APAP 5/325 MG TAB PO PRN ×3 (01:24→13:40)
[2019-06-19] MEDS: NA CHLORIDE 0.9% 1,000 ML IV SCH (05:14)
[2019-06-19] MEDS: HYDROMORPHONE HCL 1 MG/ML INJ IV PRN ×2 (05:14→10:31)
[2019-06-19] MEDS: ONDANSETRON 4 MG/2 ML VIAL IV SCH ×2 (05:14→07:59)
[2019-06-19 06:37] LABS: Absolute Lymphocytes (CBC) 0.8 K/uL (0.7-4.9); Basophils % 0.7 % (0-1.3); Hematocrit 33.1 % (39.6-49.0); Lymphocytes % 20.2 % (15.3-44.8); MPV 7.7 fL (7.6-11.3); RBC Red Blood Cell Count 3.73 M/uL (4.33-5.43)
[2019-06-19 06:41] LABS: ALT/SGPT 24 U/L (12-78); AST/SGOT 21 U/L (15-37); Albumin 3.2 g/dL (3.4-5.0); Alkaline Phosphatase 78 U/L (45-117); BUN Blood Urea Nitrogen 5 mg/dL (7-18); Bicarbonate 26 mmol/L (21-32); Bilirubin Total 0.3 mg/dL (0.2-1.0); Glucose Level 90 mg/dL (74-106); Lipase 113 U/L (73-393); Magnesium 1.9 mg/dL (1.8-2.4); Potassium 3.5 mmol/L (3.5-5.1); Protein, Total 6.3 g/dL (6.4-8.2); Sodium Level 144 mmol/L (136-145)
[2019-06-19] MEDS: NICOTINE 21 MG/PAT TD SCH (08:00)
--- NOTE | 2019-06-19 08:30 | RAD REPORT ---
EXAM DESCRIPTION: MRI - Cholangiogram - 06/19/2019 7:53 am CLINICAL HISTORY: Abdominal pain, nausea, vomiting COMPARISON: CT study June 17, 2019 TECHNIQUE: Axial and coronal heavily T2 weighted sequences were obtained. Coronal T2 HASTE fat satur ation static and coronal multiplane reconstruction imaging generated and reviewed. Horizontal and jake tical axis rotational views obtained using maximum intensity projection (MIP) protocol. FINDINGS: The extrahepatic biliary tree is 6-7 mm in diameter which is upper normal. No stricture, m ass or intraluminal filling defect confirmed. Intrahepatic ducts do not appear to be dilated. Gallbladder is distended. No large intraluminal stone. No suspicion for mass. Small stones are potent ially occult. Sonography can be performed as clinical findings warrant. A duct stone is not seen. No pancreatic duct dilatation identified. IMPRESSION: Extrahepatic biliary tree is upper normal in size. No stone, stricture or mass identifia ble.
[2019-06-19] MEDS ORDERED: PANTOPRAZOLE 40MG TABLET PO SCH (09:00)
[2019-06-19] MEDS ORDERED: THIAMINE HCL 100 MG TABLET PO SCH (09:00)
[2019-06-19 12:13] VITALS: BP 170/78; TEMP 98.4
--- NOTE | 2019-06-20 16:52 | P.DS ---
Discharge Date: 06/19/19 Disposition: ROUTINE DISCHARGE Discharge Condition: GOOD Reason for Admission: Acute on chronic pancreatitis Consultations: GI - Problems (1) Acute on chronic pancreatitis Status: Acute (2) History of alcohol abuse Status: Acute (3) Colitis Status: Acute (4) Lower gastrointestinal bleeding Status: Acute (5) Fatty liver disease, nonalcoholic Status: Acute Brief History of Present Illness: Patient is a 33-year-old gentleman who came to the hospital with pancreatitis. Patient had but history of pancreatitis and has been told that he has chronic pancreatitis. Patient is a alcoholic but has been sober for the last 3 months. He was eating a larger meal than normal when he sticks suddenly had severe epigastric pain. He came into the ER for further evaluation. In the emergency room his labs revealed a normal lipase. CT scan did not reveal any abnormal findings except for a pseudocyst. Patient will be admitted to the hospital for treatment of acute pancreatitis. Patient also mentioned incidentally that he noticed some lower GI bleeding. No active bleeding at this time. CT did reveal colitis and will continue to treat with IV antibiotics. Hospital Course: PATIENT DID WELL DURING HOSPITAL STAY. MRCP DID NOT REVEAL AN OBSTRUCTION. AT THIS TIME PATIENT IS STABLE FOR DISCHARGE WITH OUTPATIENT FOLLOW-UP WITH HIS PCP AND FRONT END MECHANIC. Vital Signs/Physical Exam: Temp Pulse Resp BP Pulse Ox 98.4 F 86 16 170/78 H 98 06/19/19 12:00 06/19/19 12:00 06/19/19 12:00 06/19/19 12:00 06/19/19 12:00 General: Alert, In no apparent distress, Oriented x3 Laboratory Data at Discharge: WBC 4.0 K/uL (4.3-10.9) L D 06/19/19 06:08 Hgb 11.4 g/dL (13.6-17.9) L 06/19/19 06:08 Hct 33.1 % (39.6-49.0) L 06/19/19 06:08 Plt Count 170 K/uL (152-406) 06/19/19 06:08 Sodium 144 mmol/L (136-145) 06/19/19 06:08 Potassium 3.5 mmol/L (3.5-5.1) 06/19/19 06:08 BUN 5 mg/dL (7-18) L 06/19/19 06:08 Creatinine 0.64 mg/dL (0.55-1.3) 06/19/19 06:08 Glucose 90 mg/dL (74-106) 06/19/19 06:08 Phosphorus 4.0 mg/dL (2.5-4.9) 06/19/19 06:08 Magnesium 1.9 mg/dL (1.8-2.4) 06/19/19 06:08 Total Bilirubin 0.3 mg/dL (0.2-1.0) 06/19/19 06:08 AST 21 U/L (15-37) 06/19/19 06:08 ALT 24 U/L (12-78) 06/19/19 06:08 Alkaline Phosphatase 78 U/L (45-117) 06/19/19 06:08 Triglycerides 111 mg/dL (<150) 06/18/19 03:43 Cholesterol 137 mg/dL (<200) 06/18/19 03:43 HDL Cholesterol 40 mg/dL (40-60) 06/18/19 03:43 Cholesterol/HDL Ratio 3.43 06/18/19 03:43 Lipase 113 U/L (73-393) 06/19/19 06:08 Home Medications: RX: Pantoprazole [Protonix Tab*] 40 mg PO DAILY #30 tab 06/04/19 RX: Thiamine HCl 100 mg PO DAILY #30 tablet 06/04/19 RX: Lisinopril 20 mg PO DAILY 06/17/19 RX: Ciprofloxacin HCl 500 mg PO BID #10 tablet 06/19/19 RX: Hydrocodone 5/APAP 325 [Pyrites 5/325*] 1 tab PO Q6H PRN #30 tab 06/19/19 metroNIDAZOLE [Flagyl] 500 mg PO Q8H #15 tablet 06/19/19 New Medications: RX: Ciprofloxacin HCl 500 mg PO BID #10 tablet RX: Hydrocodone 5/APAP 325 [Pyrites 5/325*] 1 tab PO Q6H PRN #30 tab PRN Reason: Pain Scale 5-7 (Moderate) metroNIDAZOLE [Flagyl] 500 mg PO Q8H #15 tablet Patient Discharge Instructions: OK TO DC IV AND DC HOME. FOLLOW-UP WITH PRIMARY CARE PROVIDER IN 1-2 WEEKS. FOLLOW-UP WITH GI IN 1-2 WEEKS;. RETURN TO THE ER IF symptoms worsen. CALL or TEXT DR. ASTUDILLO AT [phone] IF ANY QUESTIONS REGARDING HOSPITAL STAY. PLEASE CALL THE FLOOR AT [phone] IF ANY MEDICATION OR NURSING QUESTIONS. Diet: Regular Activity: Fall precautions
== END 2019-06-19 13:46 | disposition home or self-care (01) | DRG 440 ==
LOC: ER 16:00 → ERHOLD 19:21 → 4TH 20:14
PROVIDERS: ADMIT Hospitalist; ATTEND Hospitalist
DX: K85.90 Acute pancreatitis without necrosis or infection, unspecified (principal); F10.21 Alcohol dependence, in remission; K52.9 Noninfective gastroenteritis and colitis, unspecified; I10 Essential (primary) hypertension; K76.0 Fatty (change of) liver, not elsewhere classified
CPT/HCPCS: 36415; 74177; 74181; 80048; 80053; 80061; 80076; 80320; 81003; 82607; 82728; 82977; 83540; 83615; 83690; 83735; 84100; 84466; 85025; 85044; 86301; 86850; 86900; 86901; 96361; 96365; 96368; 96375; 99285; C9113; J0744; J1170; J2175; J2270; J2405; J3420; J7030; Q9967

== ENCOUNTER 2019-06-30 14:52 | Emergency (ER) | payer SELFPAY ==
--- OUTSIDE RECORDS SUMMARY | 2019-06-30 14:59 | XMS REPORT ---
:1985 [facility] Address [address] [place] [address] Care Team Providers Name Role Phone DMITRI [...] Value Reference Range Comments LIPASE (BEAKER) (test sypk=833) 257 U/L 8-78 BASIC METABOLIC [id number] 03:05:00 Test Item Value Reference Range Comments SODIUM (BEAKER) (test 136 meq/L 136-145 cvem=731) POTASSIUM (BEAKER) (test 4.5 meq/L 3.5-5.1 Specimen slightly ikbq=980) hemolyzed CHLORIDE (BEAKER) (test 104 meq/L 98-107 vapr=052) CO2 (BEAKER) (test 25 meq/L 22-29 wqcx=295) BLOOD UREA NITROGEN 5 mg/dL 7-21 (BEAKER) (test ybgh=972) CREATININE (BEAKER) (test 0.57 mg/dL 0.57-1.25 Specimen slightly wkao=685) hemolyzed GLUCOSE RANDOM (BEAKER) 87 mg/dL 70-105 (test rguo=359) CALCIUM (BEAKER) (test 8.4 mg/dL 8.4-10.2 kzex=248) EGFR (BEAKER) (test 166 mL/min/1.73 sq m ESTIMATED GFR IS NOT tbtw=8426) ACCURATE CREATININE CLEARANCE IN PREDICTING GLOMERULAR FILTRATION RATE. ESTIMATED GFR IS NOT APPLICABLE FOR DIALYSIS PATIENTS. BASIC METABOLIC [id number] 04:41:00 Test Item Value Reference Range Comments SODIUM (BEAKER) (test 134 meq/L 136-145 lqvm=856) POTASSIUM (BEAKER) (test 3.9 meq/L 3.5-5.1 Specimen slightly ipcn=113) hemolyzed CHLORIDE (BEAKER) (test 102 meq/L 98-107 ajpr=516) CO2 (BEAKER) (test 26 meq/L 22-29 kqrx=163) BLOOD UREA NITROGEN 3 mg/dL 7-21 (BEAKER) (test hgzk=755) CREATININE (BEAKER) (test 0.50 mg/dL 0.57-1.25 Specimen slightly vvap=986) hemolyzed GLUCOSE RANDOM (BEAKER) 95 mg/dL 70-105 (test vjhr=679) CALCIUM (BEAKER) (test 7.9 mg/dL 8.4-10.2 pxux=194) EGFR (BEAKER) (test 193 mL/min/1.73 sq m ESTIMATED GFR IS NOT brlt=3582) ACCURATE CREATININE CLEARANCE IN PREDICTING GLOMERULAR FILTRATION RATE. ESTIMATED GFR IS NOT APPLICABLE FOR DIALYSIS PATIENTS. [id number] 04:31:00 Test Item Value Reference Range Comments LIPASE (BEAKER) (test gcyn=427) 334 U/L 8-78 TROPONIN [id number] 03:00:00 Test Item Value Reference Range Comments TROPONIN I (BEAKER) (test btux=818) < ng/mL 0.00-0.03 Troponin I (TnI) levels [...] failure, acidosis, acute neurological disease, and persistent tachyarrhythmia.[id number] 02:54:00 Test Item Value Reference Range Comments MAGNESIUM (BEAKER) (test 1.9 mg/dL 1.6-2.6 Specimen slightly hemolyzed nyys=575) BASIC METABOLIC [id number] 02:54:00 Test Item Value Reference Range Comments SODIUM (BEAKER) (test 136 meq/L 136-145 mcvk=978) POTASSIUM (BEAKER) (test 3.8 meq/L 3.5-5.1 Specimen slightly prks=235) hemolyzed CHLORIDE (BEAKER) (test 100 meq/L 98-107 sasb=571) CO2 (BEAKER) (test 28 meq/L 22-29 tzyo=345) BLOOD UREA NITROGEN 3 mg/dL 7-21 (BEAKER) (test bdpn=840) CREATININE (BEAKER) (test 0.56 mg/dL 0.57-1.25 Specimen slightly lfsd=686) hemolyzed GLUCOSE RANDOM (BEAKER) 111 mg/dL 70-105 (test kkqa=942) CALCIUM (BEAKER) (test 8.3 mg/dL 8.4-10.2 jzwq=902) EGFR (BEAKER) (test 169 mL/min/1.73 sq m ESTIMATED GFR IS NOT ppkn=4882) ACCURATE CREATININE CLEARANCE IN PREDICTING GLOMERULAR FILTRATION RATE. ESTIMATED GFR IS NOT APPLICABLE FOR DIALYSIS PATIENTS. [id number] 02:54:00 Test Item Value Reference Range Comments LIPASE (BEAKER) (test gmye=649) 755 U/L 8-78 CBC W/PLT COUNT & AUTO [id number] 02:33:00 Test Item Value Reference Range Comments WHITE BLOOD CELL COUNT (BEAKER) (test gbsc=353) 5.7 K/ L 3.5-10.5 RED BLOOD CELL COUNT (BEAKER) (test oome=120) 3.90 M/ L 4.63-6.08 HEMOGLOBIN (BEAKER) (test ycad=832) 12.0 GM/DL 13.7-17.5 HEMATOCRIT (BEAKER) (test ghzt=205) 36.5 % 40.1-51.0 MEAN CORPUSCULAR VOLUME (BEAKER) (test ygck=529) 93.6 fL 79.0-92.2 MEAN CORPUSCULAR HEMOGLOBIN (BEAKER) (test 30.8 pg 25.7-32.2 glkx=890) MEAN CORPUSCULAR HEMOGLOBIN CONC (BEAKER) (test 32.9 GM/DL 32.3-36.5 xcwn=775) RED CELL DISTRIBUTION WIDTH (BEAKER) (test 13.6 % 11.6-14.4 tjvf=009) PLATELET COUNT (BEAKER) (test oyyf=292) 155 K/CU MM 150-450 MEAN PLATELET VOLUME (BEAKER) (test pdsy=688) 9.4 fL 9.4-12.4 NUCLEATED RED BLOOD CELLS (BEAKER) (test 0 /100 WBC 0-0 pnnj=208) NEUTROPHILS RELATIVE PERCENT (BEAKER) (test 70 % yife=341) LYMPHOCYTES RELATIVE PERCENT (BEAKER) (test 19 % angk=376) MONOCYTES RELATIVE PERCENT (BEAKER) (test 8 % kxfu=592) EOSINOPHILS RELATIVE PERCENT (BEAKER) (test 2 % mjdj=963) BASOPHILS RELATIVE PERCENT (BEAKER) (test 1 % eklw=915) NEUTROPHILS ABSOLUTE COUNT (BEAKER) (test 4.03 K/ L 1.78-5.38 euay=048) LYMPHOCYTES ABSOLUTE COUNT (BEAKER) (test 1.07 K/ L 1.32-3.57 fyvj=187) MONOCYTES ABSOLUTE COUNT (BEAKER) (test 0.45 K/ L 0.30-0.82 ykcs=427) EOSINOPHILS ABSOLUTE COUNT (BEAKER) (test 0.12 K/ L 0.04-0.54 lpvh=822) BASOPHILS ABSOLUTE COUNT (BEAKER) (test 0.05 K/ L 0.01-0.08 ifyb=125) IMMATURE GRANULOCYTES-RELATIVE PERCENT (BEAKER) 0 % 0-1 (test xonp=7248) RAD, CHEST, 1 VIEW, NON [id number] 02:26:00Reason for exam:->pleuritic chest painShould this be [...] To [facility] MDReport Verified Date/Time: 03/22/2019 02:26:18 [id number] 08:35:00 Test Item Value Reference Range Comments MAGNESIUM (BEAKER) (test 1.4 mg/dL 1.6-2.6 Specimen slightly hemolyzed slmn=270) BASIC METABOLIC [id number] 08:35:00 Test Item Value Reference Range Comments SODIUM (BEAKER) (test 138 meq/L 136-145 viwo=261) POTASSIUM (BEAKER) (test 3.7 meq/L 3.5-5.1 Specimen slightly qonk=948) hemolyzed CHLORIDE (BEAKER) (test 102 meq/L 98-107 audo=806) CO2 (BEAKER) (test 23 meq/L 22-29 vowk=956) BLOOD UREA NITROGEN 4 mg/dL 7-21 (BEAKER) (test htqe=375) CREATININE (BEAKER) (test 0.48 mg/dL 0.57-1.25 Specimen slightly yoxz=395) hemolyzed GLUCOSE RANDOM (BEAKER) 53 mg/dL 70-105 (test mxco=739) CALCIUM (BEAKER) (test 8.1 mg/dL 8.4-10.2 adfv=099) EGFR (BEAKER) (test 202 mL/min/1.73 sq m ESTIMATED GFR IS NOT znwp=8860) ACCURATE CREATININE CLEARANCE IN PREDICTING GLOMERULAR FILTRATION RATE. ESTIMATED GFR IS NOT APPLICABLE FOR DIALYSIS PATIENTS. HEPATIC FUNCTION [id number] 08:35:00 Test Item Value Reference Range Comments TOTAL PROTEIN (BEAKER) (test 6.2 gm/dL 6.0-8.3 Specimen slightly hemolyzed xuah=049) ALBUMIN (BEAKER) (test 2.7 g/dL 3.5-5.0 Specimen slightly hemolyzed thyp=3093) BILIRUBIN TOTAL (BEAKER) (test 0.5 mg/dL 0.2-1.2 Specimen slightly hemolyzed omiu=295) BILIRUBIN DIRECT (BEAKER) (test 0.3 mg/dL 0.1-0.5 Specimen slightly hemolyzed lktg=017) ALKALINE PHOSPHATASE (BEAKER) 151 U/L 40-150 (test kdxu=037) AST (SGOT) (BEAKER) (test 64 U/L 5-34 Specimen slightly hemolyzed mzzi=247) ALT (SGPT) (BEAKER) (test 21 U/L 6-55 Specimen slightly hemolyzed lvek=562) [id number] 08:35:00 Test Item Value Reference Range Comments LIPASE (BEAKER) (test yvlh=974) 242 U/L 8-78 CBC W/PLT COUNT & AUTO [id number] 06:25:00 Test Item Value Reference Range Comments WHITE BLOOD CELL COUNT (BEAKER) (test ttpl=125) 4.2 K/ L 3.5-10.5 RED BLOOD CELL COUNT (BEAKER) (test grpj=966) 4.14 M/ L 4.63-6.08 HEMOGLOBIN (BEAKER) (test wasx=808) 12.7 GM/DL 13.7-17.5 HEMATOCRIT (BEAKER) (test fwub=254) 39.8 % 40.1-51.0 MEAN CORPUSCULAR VOLUME (BEAKER) (test joru=892) 96.1 fL 79.0-92.2 MEAN CORPUSCULAR HEMOGLOBIN (BEAKER) (test 30.7 pg 25.7-32.2 ahhw=391) MEAN CORPUSCULAR HEMOGLOBIN CONC (BEAKER) (test 31.9 GM/DL 32.3-36.5 pqkd=505) RED CELL DISTRIBUTION WIDTH (BEAKER) (test 13.5 % 11.6-14.4 drzd=401) PLATELET COUNT (BEAKER) (test ikyq=111) 186 K/CU MM 150-450 MEAN PLATELET VOLUME (BEAKER) (test iapf=556) 10.9 fL 9.4-12.4 NUCLEATED RED BLOOD CELLS (BEAKER) (test 0 /100 WBC 0-0 ebux=202) NEUTROPHILS RELATIVE PERCENT (BEAKER) (test 55 % nwra=988) LYMPHOCYTES RELATIVE PERCENT (BEAKER) (test 31 % qhws=561) MONOCYTES RELATIVE PERCENT (BEAKER) (test 8 % lhus=274) EOSINOPHILS RELATIVE PERCENT (BEAKER) (test 5 % yged=936) BASOPHILS RELATIVE PERCENT (BEAKER) (test 1 % ctks=854) NEUTROPHILS ABSOLUTE COUNT (BEAKER) (test 2.28 K/ L 1.78-5.38 souc=148) LYMPHOCYTES ABSOLUTE COUNT (BEAKER) (test 1.28 K/ L 1.32-3.57 scux=812) MONOCYTES ABSOLUTE COUNT (BEAKER) (test 0.35 K/ L 0.30-0.82 nrij=215) EOSINOPHILS ABSOLUTE COUNT (BEAKER) (test 0.21 K/ L 0.04-0.54 fwpu=093) BASOPHILS ABSOLUTE COUNT (BEAKER) (test 0.05 K/ L 0.01-0.08 idcj=701) IMMATURE GRANULOCYTES-RELATIVE PERCENT (BEAKER) 0 % 0-1 (test ysvk=0361) [id number] 07:42:00 Test Item Value Reference Range Comments MAGNESIUM (BEAKER) (test emgy=825) 1.5 mg/dL 1.6-2.6 BASIC METABOLIC [id number] 07:42:00 Test Item Value Reference Range Comments SODIUM (BEAKER) (test 140 meq/L 136-145 tmtn=695) POTASSIUM (BEAKER) (test 3.3 meq/L 3.5-5.1 okmw=050) CHLORIDE (BEAKER) (test 106 meq/L 98-107 gfec=187) CO2 (BEAKER) (test 27 meq/L 22-29 ymuo=593) BLOOD UREA NITROGEN 6 mg/dL 7-21 (BEAKER) (test iave=910) CREATININE (BEAKER) (test 0.53 mg/dL 0.57-1.25 gnii=367) GLUCOSE RANDOM (BEAKER) 81 mg/dL 70-105 (test jccr=494) CALCIUM (BEAKER) (test 8.2 mg/dL 8.4-10.2 hjhb=829) EGFR (BEAKER) (test 180 mL/min/1.73 sq m ESTIMATED GFR IS NOT gvgt=4106) ACCURATE CREATININE CLEARANCE IN PREDICTING GLOMERULAR FILTRATION RATE. ESTIMATED GFR IS NOT APPLICABLE FOR DIALYSIS PATIENTS. LIPID [id number] 07:42:00 Test Item Value Reference Range Comments TRIGLYCERIDES (BEAKER) (test fjzu=544) 63 mg/dL CHOLESTEROL (BEAKER) (test xetf=999) 101 mg/dL HDL CHOLESTEROL (BEAKER) (test goia=463) 20 mg/dL LDL CHOLESTEROL CALCULATED (BEAKER) (test 68 mg/dL dxcg=852) Triglyceride Reference Range: Low Risk <150 Borderline 150- 199 High Risk 200-499 Very High Risk >=500Cholesterol Reference Range: Low Risk <200 Borderline 200-239 High Risk > 240HDL Cholesterol Reference Range: Low Risk >=60 High Risk <40LDL Cholesterol Reference Range: Optimal <100 Near Optimal 100-129 Borderline 130-159 High 160-189 Very High >=190HEPATIC FUNCTION [id number] 07:42:00 Test Item Value Reference Range Comments TOTAL PROTEIN (BEAKER) (test hbdf=654) 6.1 gm/dL 6.0-8.3 ALBUMIN (BEAKER) (test rywi=1845) 2.7 g/dL 3.5-5.0 BILIRUBIN TOTAL (BEAKER) (test sggb=631) 0.6 mg/dL 0.2-1.2 BILIRUBIN DIRECT (BEAKER) (test rzzu=290) 0.4 mg/dL 0.1-0.5 ALKALINE PHOSPHATASE (BEAKER) (test bpro=125) 157 U/L 40-150 AST (SGOT) (BEAKER) (test hbmr=636) 58 U/L 5-34 ALT (SGPT) (BEAKER) (test cfkd=171) 21 U/L 6-55 CBC W/PLT COUNT & AUTO [id number] 05:47:00 Test Item Value Reference Range Comments WHITE BLOOD CELL COUNT (BEAKER) (test wxrv=072) 4.3 K/ L 3.5-10.5 RED BLOOD CELL COUNT (BEAKER) (test guca=177) 3.66 M/ L 4.63-6.08 HEMOGLOBIN (BEAKER) (test gawr=504) 11.4 GM/DL 13.7-17.5 HEMATOCRIT (BEAKER) (test ldrh=261) 35.8 % 40.1-51.0 MEAN CORPUSCULAR VOLUME (BEAKER) (test xyhp=871) 97.8 fL 79.0-92.2 MEAN CORPUSCULAR HEMOGLOBIN (BEAKER) (test 31.1 pg 25.7-32.2 sfym=284) MEAN CORPUSCULAR HEMOGLOBIN CONC (BEAKER) (test 31.8 GM/DL 32.3-36.5 oywx=750) RED CELL DISTRIBUTION WIDTH (BEAKER) (test 14.2 % 11.6-14.4 vbdg=912) PLATELET COUNT (BEAKER) (test jvay=201) 170 K/CU MM 150-450 MEAN PLATELET VOLUME (BEAKER) (test jxdp=208) 9.9 fL 9.4-12.4 NUCLEATED RED BLOOD CELLS (BEAKER) (test 0 /100 WBC 0-0 dilh=064) NEUTROPHILS RELATIVE PERCENT (BEAKER) (test 55 % skqf=364) LYMPHOCYTES RELATIVE PERCENT (BEAKER) (test 30 % uvdo=280) MONOCYTES RELATIVE PERCENT (BEAKER) (test 10 % wijd=916) EOSINOPHILS RELATIVE PERCENT (BEAKER) (test 4 % ctil=744) BASOPHILS RELATIVE PERCENT (BEAKER) (test 1 % zgon=138) NEUTROPHILS ABSOLUTE COUNT (BEAKER) (test 2.36 K/ L 1.78-5.38 jgwb=208) LYMPHOCYTES ABSOLUTE COUNT (BEAKER) (test 1.30 K/ L 1.32-3.57 pkqw=454) MONOCYTES ABSOLUTE COUNT (BEAKER) (test 0.41 K/ L 0.30-0.82 hvzn=847) EOSINOPHILS ABSOLUTE COUNT (BEAKER) (test 0.18 K/ L 0.04-0.54 nwzv=846) BASOPHILS ABSOLUTE COUNT (BEAKER) (test 0.03 K/ L 0.01-0.08 nunl=369) IMMATURE GRANULOCYTES-RELATIVE PERCENT (BEAKER) 1 % 0-1 (test etla=3883) RAPID DRUG SCREEN, [id number] 23:57:00 Test Item Value Reference Range Comments BARBITURATE URINE (BEAKER) (test nahb=645) Negative Negative BENZODIAZEPINE SCREEN URINE (BEAKER) (test Positive Negative iduj=933) COCAINE (METAB.) SCREEN (BEAKER) (test cigt=0346) Negative Negative METHADONE SCREEN (BEAKER) (test medo=8225) Negative Negative OPIATE SCREEN URINE (BEAKER) (test xhmq=853) Negative Negative CANNABINOID SCREEN URINE (BEAKER) (test imbk=802) Positive Negative AMPH/METHAMPH SCREEN (BEAKER) (test fgly=9404) Positive Negative PHENCYCLIDINE SCREEN URINE (BEAKER) (test dkbl=460) Negative Negative DRUG CUTOFF CONC.Cocaine 300 ng/mL Cannabinoid 50 ng/mLBenzodiazepine 200 ng/mLBarbiturate 200 ng/ mLPhencyclidine 25 ng/mLOpiate 300 ng/mLMethadone 300 ng/mLAmphetamine/ 1000 ng/mL MethamphetamineThis assay provides an unconfirmed qualitative test result for the clinical management of patients in emergency situations. Chain of custody not maintained. Some qxln-las-onnjzxf medications, as well as adulterants, may cause inaccurate results. Clinical correlation should be applied. A more comprehensivedrug screen or confirmation of a detected drug may be performed upon request.BASIC METABOLIC [id number] 23:23:00 Test Item Value Reference Range Comments SODIUM (BEAKER) (test 139 meq/L 136-145 ttvh=252) POTASSIUM (BEAKER) (test 3.1 meq/L 3.5-5.1 evnd=022) CHLORIDE (BEAKER) (test 103 meq/L 98-107 mqmp=833) CO2 (BEAKER) (test 28 meq/L 22-29 vkaz=856) BLOOD UREA NITROGEN 8 mg/dL 7-21 (BEAKER) (test exxw=744) CREATININE (BEAKER) (test 0.60 mg/dL 0.57-1.25 rlxg=094) GLUCOSE RANDOM (BEAKER) 92 mg/dL 70-105 (test hwoh=204) CALCIUM (BEAKER) (test 8.6 mg/dL 8.4-10.2 cndp=426) EGFR (BEAKER) (test 156 mL/min/1.73 sq m ESTIMATED GFR IS NOT nqet=7624) ACCURATE CREATININE CLEARANCE IN PREDICTING GLOMERULAR FILTRATION RATE. ESTIMATED GFR IS NOT APPLICABLE FOR DIALYSIS PATIENTS. HEPATIC FUNCTION [id number] 23:23:00 Test Item Value Reference Range Comments TOTAL PROTEIN (BEAKER) (test utyk=989) 7.1 gm/dL 6.0-8.3 ALBUMIN (BEAKER) (test zmdj=2029) 3.2 g/dL 3.5-5.0 BILIRUBIN TOTAL (BEAKER) (test dfua=337) 0.5 mg/dL 0.2-1.2 BILIRUBIN DIRECT (BEAKER) (test ezlu=884) 0.4 mg/dL 0.1-0.5 ALKALINE PHOSPHATASE (BEAKER) (test irmw=641) 187 U/L 40-150 AST (SGOT) (BEAKER) (test pefz=009) 62 U/L 5-34 ALT (SGPT) (BEAKER) (test dthi=603) 24 U/L 6-55 [id number] 22:57:00 Test Item Value Reference Range Comments LIPASE (BEAKER) (test ucqg=091) 957 U/L 8-78 [id number] 22:57:00 Test Item Value Reference Range Comments AMYLASE (BEAKER) (test ssvj=245) 391 U/L 25-125 [id number] 22:56:00 Test Item Value Reference Range Comments PROTIME (BEAKER) (test dknc=354) 15.8 seconds 11.9-14.2 INR (BEAKER) (test bbwj=390) 1.3 <=5.9 PARTIAL THROMBOPLASTIN TIME (BEAKER) (test 30.9 seconds 22.5-36.0 iwmr=722) Effective 12/11/2018: PT Reference Range ChangeNew: 11.9-14.2 Previous: 11.7- 14.7RECOMMENDED COUMADIN/WARFARIN INR THERAPY RANGESSTANDARD DOSE: 2.0-3.0 Includes: PROPHYLAXIS for venous thrombosis, systemic embolization; TREATMENT for venous thrombosis and/or pulmonary embolus.HIGH RISK: Target INR is2.5-3.5 for patients wiht mechanical heart valves.CBC W/PLT COUNT & AUTO [id number] 22:41:00 Test Item Value Reference Range Comments WHITE BLOOD CELL COUNT (BEAKER) (test uvpc=928) 6.4 K/ L 3.5-10.5 RED BLOOD CELL COUNT (BEAKER) (test inlb=770) 3.99 M/ L 4.63-6.08 HEMOGLOBIN (BEAKER) (test ojax=342) 12.6 GM/DL 13.7-17.5 HEMATOCRIT (BEAKER) (test azro=056) 39.0 % 40.1-51.0 MEAN CORPUSCULAR VOLUME (BEAKER) (test khtw=354) 97.7 fL 79.0-92.2 MEAN CORPUSCULAR HEMOGLOBIN (BEAKER) (test 31.6 pg 25.7-32.2 zhli=218) MEAN CORPUSCULAR HEMOGLOBIN CONC (BEAKER) (test 32.3 GM/DL 32.3-36.5 lsil=370) RED CELL DISTRIBUTION WIDTH (BEAKER) (test 14.1 % 11.6-14.4 zfru=694) PLATELET COUNT (BEAKER) (test pavd=520) 187 K/CU MM 150-450 MEAN PLATELET VOLUME (BEAKER) (test zupj=834) 9.3 fL 9.4-12.4 NUCLEATED RED BLOOD CELLS (BEAKER) (test 0 /100 WBC 0-0 hplz=971) NEUTROPHILS RELATIVE PERCENT (BEAKER) (test 68 % djrh=041) LYMPHOCYTES RELATIVE PERCENT (BEAKER) (test 19 % cvnc=075) MONOCYTES RELATIVE PERCENT (BEAKER) (test 10 % sfba=072) EOSINOPHILS RELATIVE PERCENT (BEAKER) (test 2 % avpx=598) BASOPHILS RELATIVE PERCENT (BEAKER) (test 1 % cakg=437) NEUTROPHILS ABSOLUTE COUNT (BEAKER) (test 4.31 K/ L 1.78-5.38 saup=428) LYMPHOCYTES ABSOLUTE COUNT (BEAKER) (test 1.21 K/ L 1.32-3.57 fwnu=022) MONOCYTES ABSOLUTE COUNT (BEAKER) (test 0.65 K/ L 0.30-0.82 oskc=734) EOSINOPHILS ABSOLUTE COUNT (BEAKER) (test 0.14 K/ L 0.04-0.54 qtes=932) BASOPHILS ABSOLUTE COUNT (BEAKER) (test 0.04 K/ L 0.01-0.08 diah=996) IMMATURE GRANULOCYTES-RELATIVE PERCENT (BEAKER) 0 % 0-1 (test rajn=9960) COMPREHENSIVE METABOLIC [id number] 06:44:00 Test Item Value Reference Range Comments TOTAL PROTEIN (BEAKER) 6.2 gm/dL 6.0-8.3 (test ssww=771) ALBUMIN (BEAKER) (test 2.7 g/dL 3.5-5.0 prly=9184) ALKALINE PHOSPHATASE 195 U/L 40-150 (BEAKER) (test mhpy=843) BILIRUBIN TOTAL (BEAKER) 0.7 mg/dL 0.2-1.2 (test uydu=038) SODIUM (BEAKER) (test 138 meq/L 136-145 bpop=048) POTASSIUM (BEAKER) (test 3.6 meq/L 3.5-5.1 kplt=078) CHLORIDE (BEAKER) (test 102 meq/L 98-107 doik=455) CO2 (BEAKER) (test 28 meq/L 22-29 vlbs=045) BLOOD UREA NITROGEN 2 mg/dL 7-21 (BEAKER) (test yewv=186) CREATININE (BEAKER) (test 0.52 mg/dL 0.57-1.25 ncqa=005) GLUCOSE RANDOM (BEAKER) 103 mg/dL 70-105 (test ikeg=063) CALCIUM (BEAKER) (test 8.5 mg/dL 8.4-10.2 cpxo=114) AST (SGOT) (BEAKER) (test 67 U/L 5-34 dtpn=609) ALT (SGPT) (BEAKER) (test 31 U/L 6-55 xohn=267) EGFR (BEAKER) (test 184 mL/min/1.73 sq ESTIMATED GFR IS NOT oarl=8113) m ACCURATE CREATININE CLEARANCE IN PREDICTING GLOMERULAR FILTRATION RATE. ESTIMATED GFR IS NOT APPLICABLE FOR DIALYSIS PATIENTS. CBC W/PLT COUNT & AUTO [id number] 06:09:00 Test Item Value Reference Range Comments WHITE BLOOD CELL COUNT (BEAKER) (test ppza=465) 4.0 K/ L 3.5-10.5 RED BLOOD CELL COUNT (BEAKER) (test oalt=569) 3.23 M/ L 4.63-6.08 HEMOGLOBIN (BEAKER) (test utrg=011) 10.6 GM/DL 13.7-17.5 HEMATOCRIT (BEAKER) (test oexu=193) 33.2 % 40.1-51.0 MEAN CORPUSCULAR VOLUME (BEAKER) (test jduh=345) 102.8 fL 79.0-92.2 MEAN CORPUSCULAR HEMOGLOBIN (BEAKER) (test 32.8 pg 25.7-32.2 rcqp=964) MEAN CORPUSCULAR HEMOGLOBIN CONC (BEAKER) (test 31.9 GM/DL 32.3-36.5 fzrk=137) RED CELL DISTRIBUTION WIDTH (BEAKER) (test 15.5 % 11.6-14.4 gavb=115) PLATELET COUNT (BEAKER) (test jljc=712) 226 K/CU MM 150-450 MEAN PLATELET VOLUME (BEAKER) (test wzlb=373) 10.4 fL 9.4-12.4 NUCLEATED RED BLOOD CELLS (BEAKER) (test 0 /100 WBC 0-0 egis=723) NEUTROPHILS RELATIVE PERCENT (BEAKER) (test 54 % tzzz=258) LYMPHOCYTES RELATIVE PERCENT (BEAKER) (test 29 % xeub=125) MONOCYTES RELATIVE PERCENT (BEAKER) (test 9 % kymf=600) EOSINOPHILS RELATIVE PERCENT (BEAKER) (test 6 % cjgl=152) BASOPHILS RELATIVE PERCENT (BEAKER) (test 1 % glog=826) NEUTROPHILS ABSOLUTE COUNT (BEAKER) (test 2.17 K/ L 1.78-5.38 yhao=994) LYMPHOCYTES ABSOLUTE COUNT (BEAKER) (test 1.18 K/ L 1.32-3.57 govp=511) MONOCYTES ABSOLUTE COUNT (BEAKER) (test 0.37 K/ L 0.30-0.82 nmbk=844) EOSINOPHILS ABSOLUTE COUNT (BEAKER) (test 0.25 K/ L 0.04-0.54 ckgr=554) BASOPHILS ABSOLUTE COUNT (BEAKER) (test 0.04 K/ L 0.01-0.08 deas=182) IMMATURE GRANULOCYTES-RELATIVE PERCENT (BEAKER) 0 % 0-1 (test ewbv=4914) COMPREHENSIVE METABOLIC [id number] 07:17:00 Test Item Value Reference Range Comments TOTAL PROTEIN (BEAKER) 7.3 gm/dL 6.0-8.3 (test nrvv=639) ALBUMIN (BEAKER) (test 3.2 g/dL 3.5-5.0 odcs=4578) ALKALINE PHOSPHATASE 235 U/L 40-150 (BEAKER) (test shzv=667) BILIRUBIN TOTAL (BEAKER) 0.9 mg/dL 0.2-1.2 (test ddrm=622) SODIUM (BEAKER) (test 135 meq/L 136-145 ecfl=664) POTASSIUM (BEAKER) (test 3.6 meq/L 3.5-5.1 cvip=191) CHLORIDE (BEAKER) (test 101 meq/L 98-107 twzo=003) CO2 (BEAKER) (test 29 meq/L 22-29 aakj=158) BLOOD UREA NITROGEN < mg/dL 7-21 (BEAKER) (test tpwo=939) CREATININE (BEAKER) (test 0.56 mg/dL 0.57-1.25 nwxu=026) GLUCOSE RANDOM (BEAKER) 87 mg/dL 70-105 (test aiay=192) CALCIUM (BEAKER) (test 8.6 mg/dL 8.4-10.2 vyqx=154) AST (SGOT) (BEAKER) (test 96 U/L 5-34 bxeq=981) ALT (SGPT) (BEAKER) (test 40 U/L 6-55 ishc=159) EGFR (BEAKER) (test 169 mL/min/1.73 sq ESTIMATED GFR IS NOT dxce=0549) m ACCURATE CREATININE CLEARANCE IN PREDICTING GLOMERULAR FILTRATION RATE. ESTIMATED GFR IS NOT APPLICABLE FOR DIALYSIS PATIENTS. CBC W/PLT COUNT & AUTO [id number] 06:05:00 Test Item Value Reference Range Comments WHITE BLOOD CELL COUNT (BEAKER) (test wuly=585) 5.1 K/ L 3.5-10.5 RED BLOOD CELL COUNT (BEAKER) (test txqg=920) 3.60 M/ L 4.63-6.08 HEMOGLOBIN (BEAKER) (test qjha=733) 11.7 GM/DL 13.7-17.5 HEMATOCRIT (BEAKER) (test cyod=112) 37.6 % 40.1-51.0 MEAN CORPUSCULAR VOLUME (BEAKER) (test axbv=880) 104.4 fL 79.0-92.2 MEAN CORPUSCULAR HEMOGLOBIN (BEAKER) (test 32.5 pg 25.7-32.2 kdnl=084) MEAN CORPUSCULAR HEMOGLOBIN CONC (BEAKER) (test 31.1 GM/DL 32.3-36.5 hnpb=056) RED CELL DISTRIBUTION WIDTH (BEAKER) (test 15.5 % 11.6-14.4 uppc=207) PLATELET COUNT (BEAKER) (test jgab=835) 250 K/CU MM 150-450 MEAN PLATELET VOLUME (BEAKER) (test imrn=833) 10.1 fL 9.4-12.4 NUCLEATED RED BLOOD CELLS (BEAKER) (test 0 /100 WBC 0-0 zmue=618) NEUTROPHILS RELATIVE PERCENT (BEAKER) (test 61 % ksfj=240) LYMPHOCYTES RELATIVE PERCENT (BEAKER) (test 25 % wlkh=846) MONOCYTES RELATIVE PERCENT (BEAKER) (test 8 % grga=968) EOSINOPHILS RELATIVE PERCENT (BEAKER) (test 5 % txmc=434) BASOPHILS RELATIVE PERCENT (BEAKER) (test 1 % rypb=648) NEUTROPHILS ABSOLUTE COUNT (BEAKER) (test 3.09 K/ L 1.78-5.38 aavv=830) LYMPHOCYTES ABSOLUTE COUNT (BEAKER) (test 1.28 K/ L 1.32-3.57 yupy=486) MONOCYTES ABSOLUTE COUNT (BEAKER) (test 0.39 K/ L 0.30-0.82 quiz=029) EOSINOPHILS ABSOLUTE COUNT (BEAKER) (test 0.25 K/ L 0.04-0.54 ttfn=759) BASOPHILS ABSOLUTE COUNT (BEAKER) (test 0.05 K/ L 0.01-0.08 eijg=667) IMMATURE GRANULOCYTES-RELATIVE PERCENT (BEAKER) 0 % 0-1 (test oden=0171) [id number] 07:51:00 Test Item Value Reference Range Comments MAGNESIUM (BEAKER) (test xlqn=337) 1.7 mg/dL 1.6-2.6 COMPREHENSIVE METABOLIC [id number] 06:19:00 Test Item Value Reference Range Comments TOTAL PROTEIN (BEAKER) 6.1 gm/dL 6.0-8.3 (test xvaz=607) ALBUMIN (BEAKER) (test 2.7 g/dL 3.5-5.0 chnr=6856) ALKALINE PHOSPHATASE 214 U/L 40-150 (BEAKER) (test deis=984) BILIRUBIN TOTAL (BEAKER) 0.9 mg/dL 0.2-1.2 (test acmw=028) SODIUM (BEAKER) (test 139 meq/L 136-145 xhgp=928) POTASSIUM (BEAKER) (test 4.2 meq/L 3.5-5.1 bkch=492) CHLORIDE (BEAKER) (test 110 meq/L 98-107 pypp=988) CO2 (BEAKER) (test 24 meq/L 22-29 svyc=862) BLOOD UREA NITROGEN < mg/dL 7-21 (BEAKER) (test icwa=832) CREATININE (BEAKER) (test 0.50 mg/dL 0.57-1.25 kdoi=240) GLUCOSE RANDOM (BEAKER) 77 mg/dL 70-105 (test hlyy=034) CALCIUM (BEAKER) (test 7.7 mg/dL 8.4-10.2 lkkv=496) AST (SGOT) (BEAKER) (test 96 U/L 5-34 lobc=781) ALT (SGPT) (BEAKER) (test 37 U/L 6-55 fqdb=514) EGFR (BEAKER) (test 193 mL/min/1.73 sq ESTIMATED GFR IS NOT rldp=1528) m ACCURATE CREATININE CLEARANCE IN PREDICTING GLOMERULAR FILTRATION RATE. ESTIMATED GFR IS NOT APPLICABLE FOR DIALYSIS PATIENTS. CBC W/PLT COUNT & AUTO [id number] 05:15:00 Test Item Value Reference Range Comments WHITE BLOOD CELL COUNT (BEAKER) (test vkmk=330) 4.8 K/ L 3.5-10.5 RED BLOOD CELL COUNT (BEAKER) (test fymz=531) 3.25 M/ L 4.63-6.08 HEMOGLOBIN (BEAKER) (test dzez=581) 10.7 GM/DL 13.7-17.5 HEMATOCRIT (BEAKER) (test eynl=056) 34.0 % 40.1-51.0 MEAN CORPUSCULAR VOLUME (BEAKER) (test vsmv=291) 104.6 fL 79.0-92.2 MEAN CORPUSCULAR HEMOGLOBIN (BEAKER) (test 32.9 pg 25.7-32.2 xqha=359) MEAN CORPUSCULAR HEMOGLOBIN CONC (BEAKER) (test 31.5 GM/DL 32.3-36.5 wavx=764) RED CELL DISTRIBUTION WIDTH (BEAKER) (test 15.5 % 11.6-14.4 hnyc=526) PLATELET COUNT (BEAKER) (test jigb=443) 219 K/CU MM 150-450 MEAN PLATELET VOLUME (BEAKER) (test xpeg=738) 10.2 fL 9.4-12.4 NUCLEATED RED BLOOD CELLS (BEAKER) (test 0 /100 WBC 0-0 vsew=584) NEUTROPHILS RELATIVE PERCENT (BEAKER) (test 56 % sjui=604) LYMPHOCYTES RELATIVE PERCENT (BEAKER) (test 29 % dwcp=004) MONOCYTES RELATIVE PERCENT (BEAKER) (test 8 % tdhn=872) EOSINOPHILS RELATIVE PERCENT (BEAKER) (test 5 % lvli=755) BASOPHILS RELATIVE PERCENT (BEAKER) (test 1 % mpnd=792) NEUTROPHILS ABSOLUTE COUNT (BEAKER) (test 2.69 K/ L 1.78-5.38 pmkc=476) LYMPHOCYTES ABSOLUTE COUNT (BEAKER) (test 1.40 K/ L 1.32-3.57 emec=113) MONOCYTES ABSOLUTE COUNT (BEAKER) (test 0.37 K/ L 0.30-0.82 poxo=702) EOSINOPHILS ABSOLUTE COUNT (BEAKER) (test 0.25 K/ L 0.04-0.54 tnoz=526) BASOPHILS ABSOLUTE COUNT (BEAKER) (test 0.05 K/ L 0.01-0.08 heoi=201) IMMATURE GRANULOCYTES-RELATIVE PERCENT (BEAKER) 0 % 0-1 (test eghm=8516) COMPREHENSIVE METABOLIC [id number] 09:35:00 Test Item Value Reference Range Comments TOTAL PROTEIN (BEAKER) 6.4 gm/dL 6.0-8.3 Specimen slightly (test ajct=075) hemolyzed ALBUMIN (BEAKER) (test 2.8 g/dL 3.5-5.0 Specimen slightly kumh=6757) hemolyzed ALKALINE PHOSPHATASE 214 U/L 40-150 (BEAKER) (test iygd=269) BILIRUBIN TOTAL (BEAKER) 1.0 mg/dL 0.2-1.2 Specimen slightly (test pkvs=983) hemolyzed SODIUM (BEAKER) (test 136 meq/L 136-145 mbjj=277) POTASSIUM (BEAKER) (test 4.2 meq/L 3.5-5.1 Specimen slightly mwnb=277) hemolyzed CHLORIDE (BEAKER) (test 107 meq/L 98-107 slpf=511) CO2 (BEAKER) (test 23 meq/L 22-29 tjyc=716) BLOOD UREA NITROGEN 2 mg/dL 7-21 (BEAKER) (test ecgh=456) CREATININE (BEAKER) (test 0.54 mg/dL 0.57-1.25 Specimen slightly ierg=508) hemolyzed GLUCOSE RANDOM (BEAKER) 89 mg/dL 70-105 (test hqvl=855) CALCIUM (BEAKER) (test 7.6 mg/dL 8.4-10.2 lthd=628) AST (SGOT) (BEAKER) (test 101 U/L 5-34 Specimen slightly hyrf=573) hemolyzed ALT (SGPT) (BEAKER) (test 41 U/L 6-55 Specimen slightly fspb=084) hemolyzed EGFR (BEAKER) (test 176 mL/min/1.73 sq ESTIMATED GFR IS NOT yicy=2178) m ACCURATE CREATININE CLEARANCE IN PREDICTING GLOMERULAR FILTRATION RATE. ESTIMATED GFR IS NOT APPLICABLE FOR DIALYSIS PATIENTS. [id number] 09:27:00 Test Item Value Reference Range Comments MAGNESIUM (BEAKER) (test 1.3 mg/dL 1.6-2.6 Specimen slightly hemolyzed ymja=889) CBC W/PLT COUNT & AUTO [id number] 09:04:00 Test Item Value Reference Range Comments WHITE BLOOD CELL COUNT (BEAKER) (test dcgt=408) 5.7 K/ L 3.5-10.5 RED BLOOD CELL COUNT (BEAKER) (test chay=751) 3.18 M/ L 4.63-6.08 HEMOGLOBIN (BEAKER) (test juru=748) 10.4 GM/DL 13.7-17.5 HEMATOCRIT (BEAKER) (test nfpc=352) 33.1 % 40.1-51.0 MEAN CORPUSCULAR VOLUME (BEAKER) (test rrdu=259) 104.1 fL 79.0-92.2 MEAN CORPUSCULAR HEMOGLOBIN (BEAKER) (test 32.7 pg 25.7-32.2 xoig=066) MEAN CORPUSCULAR HEMOGLOBIN CONC (BEAKER) (test 31.4 GM/DL 32.3-36.5 ucoo=259) RED CELL DISTRIBUTION WIDTH (BEAKER) (test 15.9 % 11.6-14.4 euol=884) PLATELET COUNT (BEAKER) (test lmhc=967) 223 K/CU MM 150-450 MEAN PLATELET VOLUME (BEAKER) (test qmtq=835) 10.4 fL 9.4-12.4 NUCLEATED RED BLOOD CELLS (BEAKER) (test 0 /100 WBC 0-0 zadk=333) NEUTROPHILS RELATIVE PERCENT (BEAKER) (test 58 % vucb=475) LYMPHOCYTES RELATIVE PERCENT (BEAKER) (test 25 % cucd=467) MONOCYTES RELATIVE PERCENT (BEAKER) (test 11 % iwcn=878) EOSINOPHILS RELATIVE PERCENT (BEAKER) (test 5 % mqek=428) BASOPHILS RELATIVE PERCENT (BEAKER) (test 1 % pdpg=881) NEUTROPHILS ABSOLUTE COUNT (BEAKER) (test 3.27 K/ L 1.78-5.38 oeke=594) LYMPHOCYTES ABSOLUTE COUNT (BEAKER) (test 1.40 K/ L 1.32-3.57 qmas=842) MONOCYTES ABSOLUTE COUNT (BEAKER) (test 0.61 K/ L 0.30-0.82 ywlk=847) EOSINOPHILS ABSOLUTE COUNT (BEAKER) (test 0.30 K/ L 0.04-0.54 abms=816) BASOPHILS ABSOLUTE COUNT (BEAKER) (test 0.07 K/ L 0.01-0.08 emsk=047) IMMATURE GRANULOCYTES-RELATIVE PERCENT (BEAKER) 0 % 0-1 (test uvcr=9746) COMPREHENSIVE METABOLIC [id number] 05:26:00 Test Item Value Reference Range Comments TOTAL PROTEIN (BEAKER) 5.7 gm/dL 6.0-8.3 (test psij=044) ALBUMIN (BEAKER) (test 2.6 g/dL 3.5-5.0 klbr=2074) ALKALINE PHOSPHATASE 204 U/L 40-150 (BEAKER) (test xhyo=269) BILIRUBIN TOTAL (BEAKER) 1.0 mg/dL 0.2-1.2 (test fvdh=165) SODIUM (BEAKER) (test 138 meq/L 136-145 vvft=376) POTASSIUM (BEAKER) (test 3.3 meq/L 3.5-5.1 kwaj=681) CHLORIDE (BEAKER) (test 106 meq/L 98-107 rksx=015) CO2 (BEAKER) (test 24 meq/L 22-29 ptoa=545) BLOOD UREA NITROGEN 5 mg/dL 7-21 (BEAKER) (test xsbv=226) CREATININE (BEAKER) (test 0.53 mg/dL 0.57-1.25 pqtl=184) GLUCOSE RANDOM (BEAKER) 85 mg/dL 70-105 (test pvdg=919) CALCIUM (BEAKER) (test 7.3 mg/dL 8.4-10.2 pazn=471) AST (SGOT) (BEAKER) (test 108 U/L 5-34 tfvz=466) ALT (SGPT) (BEAKER) (test 46 U/L 6-55 xttw=387) EGFR (BEAKER) (test 180 mL/min/1.73 sq ESTIMATED GFR IS NOT zoes=2166) m ACCURATE CREATININE CLEARANCE IN PREDICTING GLOMERULAR FILTRATION RATE. ESTIMATED GFR IS NOT APPLICABLE FOR DIALYSIS PATIENTS. PROTHROMBIN [id number] 05:08:00 Test Item Value Reference Range Comments PROTIME (BEAKER) (test bpjs=380) 17.0 seconds 11.9-14.2 INR (BEAKER) (test nglc=672) 1.5 <=5.9 Effective 12/11/2018: PT Reference Range ChangeNew: 11.9-14.2 Previous: 11.7- 14.7RECOMMENDED COUMADIN/WARFARIN INR THERAPY RANGESSTANDARD DOSE: 2.0-3.0 Includes: PROPHYLAXIS for venous thrombosis, systemic embolization; TREATMENT for venous thrombosis and/or pulmonary embolus.HIGH RISK: Target INR is2.5-3.5 for patients wiht mechanical heart valves.CBC W/PLT COUNT & AUTO [id number] 04:59:00 Test Item Value Reference Range Comments WHITE BLOOD CELL COUNT (BEAKER) (test khie=005) 6.1 K/ L 3.5-10.5 RED BLOOD CELL COUNT (BEAKER) (test qcwr=044) 2.96 M/ L 4.63-6.08 HEMOGLOBIN (BEAKER) (test qjdm=097) 9.7 GM/DL 13.7-17.5 HEMATOCRIT (BEAKER) (test turo=971) 30.5 % 40.1-51.0 MEAN CORPUSCULAR VOLUME (BEAKER) (test xkni=179) 103.0 fL 79.0-92.2 MEAN CORPUSCULAR HEMOGLOBIN (BEAKER) (test 32.8 pg 25.7-32.2 nzlc=789) MEAN CORPUSCULAR HEMOGLOBIN CONC (BEAKER) (test 31.8 GM/DL 32.3-36.5 mamd=975) RED CELL DISTRIBUTION WIDTH (BEAKER) (test 16.0 % 11.6-14.4 qlub=197) PLATELET COUNT (BEAKER) (test sdsm=997) 221 K/CU MM 150-450 MEAN PLATELET VOLUME (BEAKER) (test gefd=592) 10.7 fL 9.4-12.4 NUCLEATED RED BLOOD CELLS (BEAKER) (test 0 /100 WBC 0-0 zish=728) NEUTROPHILS RELATIVE PERCENT (BEAKER) (test 62 % xxjx=427) LYMPHOCYTES RELATIVE PERCENT (BEAKER) (test 22 % wuij=899) MONOCYTES RELATIVE PERCENT (BEAKER) (test 11 % ostv=317) EOSINOPHILS RELATIVE PERCENT (BEAKER) (test 3 % xqtn=769) BASOPHILS RELATIVE PERCENT (BEAKER) (test 1 % etku=739) NEUTROPHILS ABSOLUTE COUNT (BEAKER) (test 3.81 K/ L 1.78-5.38 krob=401) LYMPHOCYTES ABSOLUTE COUNT (BEAKER) (test 1.32 K/ L 1.32-3.57 ckru=340) MONOCYTES ABSOLUTE COUNT (BEAKER) (test 0.70 K/ L 0.30-0.82 gkqo=830) EOSINOPHILS ABSOLUTE COUNT (BEAKER) (test 0.21 K/ L 0.04-0.54 qixi=455) BASOPHILS ABSOLUTE COUNT (BEAKER) (test 0.07 K/ L 0.01-0.08 myew=308) IMMATURE GRANULOCYTES-RELATIVE PERCENT (BEAKER) 0 % 0-1 (test smkn=1395) POCT-GLUCOSE [id number] 07:44:00 Test Item Value Reference Range Comments POC-GLUCOSE METER (BEAKER) 90 mg/dL 70-110 TESTED AT [facility] [address] [facility] (test msjy=1990) [facility] [id number] COMPREHENSIVE METABOLIC [id number] 07:29:00 Test Item Value Reference Range Comments TOTAL PROTEIN (BEAKER) 5.7 gm/dL 6.0-8.3 (test vwfk=916) ALBUMIN (BEAKER) (test 2.5 g/dL 3.5-5.0 higb=9918) ALKALINE PHOSPHATASE 411 U/L 40-150 (BEAKER) (test glai=115) BILIRUBIN TOTAL (BEAKER) 1.7 mg/dL 0.2-1.2 (test dtwu=978) SODIUM (BEAKER) (test 139 meq/L 136-145 vvcb=089) POTASSIUM (BEAKER) (test 3.1 meq/L 3.5-5.1 tsbz=817) CHLORIDE (BEAKER) (test 105 meq/L 98-107 uhbl=068) CO2 (BEAKER) (test 24 meq/L 22-29 gbrz=041) BLOOD UREA NITROGEN 3 mg/dL 7-21 (BEAKER) (test hwjj=688) CREATININE (BEAKER) (test 0.61 mg/dL 0.57-1.25 krms=860) GLUCOSE RANDOM (BEAKER) 95 mg/dL 70-105 (test cwgl=955) CALCIUM (BEAKER) (test 6.8 mg/dL 8.4-10.2 rqhi=797) AST (SGOT) (BEAKER) (test 173 U/L 5-34 bhoy=032) ALT (SGPT) (BEAKER) (test 53 U/L 6-55 lkrr=667) EGFR (BEAKER) (test 153 mL/min/1.73 sq ESTIMATED GFR IS NOT cxmz=4056) m ACCURATE CREATININE CLEARANCE IN PREDICTING GLOMERULAR FILTRATION RATE. ESTIMATED GFR IS NOT APPLICABLE FOR DIALYSIS PATIENTS. [id number] 07:28:00 Test Item Value Reference Range Comments PHOSPHORUS (BEAKER) (test dbni=355) 2.4 mg/dL 2.3-4.7 [id number] 07:28:00 Test Item Value Reference Range Comments MAGNESIUM (BEAKER) (test rjtx=148) 1.8 mg/dL 1.6-2.6 HEPATIC FUNCTION [id number] 07:28:00 Test Item Value Reference Range Comments TOTAL PROTEIN (BEAKER) (test yyor=945) 5.7 gm/dL 6.0-8.3 ALBUMIN (BEAKER) (test wyfz=0462) 2.5 g/dL 3.5-5.0 BILIRUBIN TOTAL (BEAKER) (test cudl=120) 1.7 mg/dL 0.2-1.2 BILIRUBIN DIRECT (BEAKER) (test cozd=016) 1.3 mg/dL 0.1-0.5 ALKALINE PHOSPHATASE (BEAKER) (test gcbx=554) 411 U/L 40-150 AST (SGOT) (BEAKER) (test siax=221) 173 U/L 5-34 ALT (SGPT) (BEAKER) (test klwh=220) 53 U/L 6-55 [id number] 07:28:00 Test Item Value Reference Range Comments LIPASE (BEAKER) (test crvq=651) 231 U/L 8-78 CBC W/PLT COUNT & AUTO [id number] 07:10:00 Test Item Value Reference Range Comments WHITE BLOOD CELL COUNT (BEAKER) (test trax=309) 4.5 K/ L 3.5-10.5 RED BLOOD CELL COUNT (BEAKER) (test vopy=115) 2.76 M/ L 4.63-6.08 HEMOGLOBIN (BEAKER) (test iuog=037) 9.2 GM/DL 13.7-17.5 HEMATOCRIT (BEAKER) (test uran=081) 29.2 % 40.1-51.0 MEAN CORPUSCULAR VOLUME (BEAKER) (test bkay=102) 105.8 fL 79.0-92.2 MEAN CORPUSCULAR HEMOGLOBIN (BEAKER) (test 33.3 pg 25.7-32.2 brmc=274) MEAN CORPUSCULAR HEMOGLOBIN CONC (BEAKER) (test 31.5 GM/DL 32.3-36.5 idvp=595) RED CELL DISTRIBUTION WIDTH (BEAKER) (test 21.9 % 11.6-14.4 dohw=894) PLATELET COUNT (BEAKER) (test zcmd=682) 150 K/CU MM 150-450 MEAN PLATELET VOLUME (BEAKER) (test sziv=523) 10.5 fL 9.4-12.4 NUCLEATED RED BLOOD CELLS (BEAKER) (test 0 /100 WBC 0-0 krzj=633) NEUTROPHILS RELATIVE PERCENT (BEAKER) (test 65 % ooqh=435) LYMPHOCYTES RELATIVE PERCENT (BEAKER) (test 17 % escx=467) MONOCYTES RELATIVE PERCENT (BEAKER) (test 13 % pgqi=444) EOSINOPHILS RELATIVE PERCENT (BEAKER) (test 2 % wxrz=811) BASOPHILS RELATIVE PERCENT (BEAKER) (test 1 % erjx=870) NEUTROPHILS ABSOLUTE COUNT (BEAKER) (test 2.91 K/ L 1.78-5.38 lmup=212) LYMPHOCYTES ABSOLUTE COUNT (BEAKER) (test 0.78 K/ L 1.32-3.57 obje=776) MONOCYTES ABSOLUTE COUNT (BEAKER) (test 0.59 K/ L 0.30-0.82 ldpp=486) EOSINOPHILS ABSOLUTE COUNT (BEAKER) (test 0.11 K/ L 0.04-0.54 greq=482) BASOPHILS ABSOLUTE COUNT (BEAKER) (test 0.05 K/ L 0.01-0.08 korc=382) IMMATURE GRANULOCYTES-RELATIVE PERCENT (BEAKER) 2 % 0-1 (test hoce=3583) COMPREHENSIVE METABOLIC [id number] 04:23:00 Test Item Value Reference Range Comments TOTAL PROTEIN (BEAKER) 5.5 gm/dL 6.0-8.3 (test syuk=546) ALBUMIN (BEAKER) (test 2.5 g/dL 3.5-5.0 irbx=3429) ALKALINE PHOSPHATASE 453 U/L 40-150 (BEAKER) (test ojtj=723) BILIRUBIN TOTAL (BEAKER) 2.0 mg/dL 0.2-1.2 (test syak=426) SODIUM (BEAKER) (test 138 meq/L 136-145 nncd=141) POTASSIUM (BEAKER) (test 3.2 meq/L 3.5-5.1 yhib=080) CHLORIDE (BEAKER) (test 104 meq/L 98-107 fndt=959) CO2 (BEAKER) (test 26 meq/L 22-29 sowl=564) BLOOD UREA NITROGEN 3 mg/dL 7-21 (BEAKER) (test vcjn=730) CREATININE (BEAKER) (test 0.51 mg/dL 0.57-1.25 ykal=008) GLUCOSE RANDOM (BEAKER) 104 mg/dL 70-105 (test nrkp=363) CALCIUM (BEAKER) (test 7.0 mg/dL 8.4-10.2 food=081) AST (SGOT) (BEAKER) (test 166 U/L 5-34 lzyo=668) ALT (SGPT) (BEAKER) (test 52 U/L 6-55 eaxb=993) EGFR (BEAKER) (test 188 mL/min/1.73 sq ESTIMATED GFR IS NOT vkhf=2714) m ACCURATE CREATININE CLEARANCE IN PREDICTING GLOMERULAR FILTRATION RATE. ESTIMATED GFR IS NOT APPLICABLE FOR DIALYSIS PATIENTS. [id number] 04:21:00 Test Item Value Reference Range Comments PHOSPHORUS (BEAKER) (test cvzc=052) 2.0 mg/dL 2.3-4.7 [id number] 04:21:00 Test Item Value Reference Range Comments MAGNESIUM (BEAKER) (test zurt=369) 1.5 mg/dL 1.6-2.6 HEPATIC FUNCTION [id number] 04:21:00 Test Item Value Reference Range Comments TOTAL PROTEIN (BEAKER) (test gitt=899) 5.5 gm/dL 6.0-8.3 ALBUMIN (BEAKER) (test uqid=3817) 2.5 g/dL 3.5-5.0 BILIRUBIN TOTAL (BEAKER) (test blea=954) 2.0 mg/dL 0.2-1.2 BILIRUBIN DIRECT (BEAKER) (test hvhh=932) 1.5 mg/dL 0.1-0.5 ALKALINE PHOSPHATASE (BEAKER) (test vtge=157) 453 U/L 40-150 AST (SGOT) (BEAKER) (test bepw=580) 166 U/L 5-34 ALT (SGPT) (BEAKER) (test iyrb=276) 52 U/L 6-55 [id number] 04:21:00 Test Item Value Reference Range Comments LIPASE (BEAKER) (test jlbq=438) 283 U/L 8-78 CBC W/PLT COUNT & AUTO [id number] 04:19:00 Test Item Value Reference Range Comments WHITE BLOOD CELL COUNT (BEAKER) (test gtqv=787) 4.6 K/ L 3.5-10.5 RED BLOOD CELL COUNT (BEAKER) (test tgpe=114) 2.82 M/ L 4.63-6.08 HEMOGLOBIN (BEAKER) (test igih=568) 9.4 GM/DL 13.7-17.5 HEMATOCRIT (BEAKER) (test ufgq=531) 28.9 % 40.1-51.0 MEAN CORPUSCULAR VOLUME (BEAKER) (test qhnj=318) 102.5 fL 79.0-92.2 MEAN CORPUSCULAR HEMOGLOBIN (BEAKER) (test 33.3 pg 25.7-32.2 nllp=250) MEAN CORPUSCULAR HEMOGLOBIN CONC (BEAKER) (test 32.5 GM/DL 32.3-36.5 aopq=562) RED CELL DISTRIBUTION WIDTH (BEAKER) (test 21.8 % 11.6-14.4 aonh=686) PLATELET COUNT (BEAKER) (test fbtn=877) 141 K/CU MM 150-450 MEAN PLATELET VOLUME (BEAKER) (test oiys=148) 9.5 fL 9.4-12.4 NUCLEATED RED BLOOD CELLS (BEAKER) (test 0 /100 WBC 0-0 ronb=042) NEUTROPHILS RELATIVE PERCENT (BEAKER) (test 63 % ykob=393) LYMPHOCYTES RELATIVE PERCENT (BEAKER) (test 22 % ulyy=370) MONOCYTES RELATIVE PERCENT (BEAKER) (test 10 % ewyu=331) EOSINOPHILS RELATIVE PERCENT (BEAKER) (test 3 % vefs=976) BASOPHILS RELATIVE PERCENT (BEAKER) (test 1 % axdw=742) NEUTROPHILS ABSOLUTE COUNT (BEAKER) (test 2.86 K/ L 1.78-5.38 hcbc=311) LYMPHOCYTES ABSOLUTE COUNT (BEAKER) (test 1.02 K/ L 1.32-3.57 xgox=947) MONOCYTES ABSOLUTE COUNT (BEAKER) (test 0.44 K/ L 0.30-0.82 ptbs=535) EOSINOPHILS ABSOLUTE COUNT (BEAKER) (test 0.12 K/ L 0.04-0.54 eyif=740) BASOPHILS ABSOLUTE COUNT (BEAKER) (test 0.05 K/ L 0.01-0.08 fdol=823) IMMATURE GRANULOCYTES-RELATIVE PERCENT (BEAKER) 2 % 0-1 (test ngoi=8452) HEMOGLOBIN AND [id number] 03:57:00 Test Item Value Reference Range Comments HEMOGLOBIN (BEAKER) (test xggk=581) 9.4 GM/DL 13.7-17.5 HEMATOCRIT (BEAKER) (test aqpl=431) 28.9 % 40.1-51.0 HEMOGLOBIN AND [id number] 11:59:00 Test Item Value Reference Range Comments HEMOGLOBIN (BEAKER) (test dcnk=986) 8.4 GM/DL 13.7-17.5 HEMATOCRIT (BEAKER) (test gody=992) 24.7 % 40.1-51.0 [id number] 09:15:00 Test Item Value Reference Range Comments LIPASE (BEAKER) (test uqdd=676) 214 U/L 8-78 HEPATIC FUNCTION [id number] 06:09:00 Test Item Value Reference Range Comments TOTAL PROTEIN (BEAKER) (test gzop=165) 5.1 gm/dL 6.0-8.3 ALBUMIN (BEAKER) (test fsjj=7837) 2.4 g/dL 3.5-5.0 BILIRUBIN TOTAL (BEAKER) (test jrjw=257) 2.0 mg/dL 0.2-1.2 BILIRUBIN DIRECT (BEAKER) (test bhdx=195) 1.4 mg/dL 0.1-0.5 ALKALINE PHOSPHATASE (BEAKER) (test klta=350) 418 U/L 40-150 AST (SGOT) (BEAKER) (test rhde=504) 147 U/L 5-34 ALT (SGPT) (BEAKER) (test rxqo=428) 51 U/L 6-55 CBC (HEMOGRAM ONLY)[id number] 05:04:00 Test Item Value Reference Range Comments WHITE BLOOD CELL COUNT (BEAKER) (test oztj=646) 4.8 K/ L 3.5-10.5 RED BLOOD CELL COUNT (BEAKER) (test rdmf=408) 2.41 M/ L 4.63-6.08 HEMOGLOBIN (BEAKER) (test hyzm=345) 8.1 GM/DL 13.7-17.5 HEMATOCRIT (BEAKER) (test qpfk=850) 24.1 % 40.1-51.0 MEAN CORPUSCULAR VOLUME (BEAKER) (test gdwh=892) 100.0 fL 79.0-92.2 MEAN CORPUSCULAR HEMOGLOBIN (BEAKER) (test 33.6 pg 25.7-32.2 vpnm=266) MEAN CORPUSCULAR HEMOGLOBIN CONC (BEAKER) (test 33.6 GM/DL 32.3-36.5 ehjf=248) RED CELL DISTRIBUTION WIDTH (BEAKER) (test 22.4 % 11.6-14.4 fpsv=363) PLATELET COUNT (BEAKER) (test sgsw=554) 135 K/CU MM 150-450 MEAN PLATELET VOLUME (BEAKER) (test lzhu=345) 10.0 fL 9.4-12.4 NUCLEATED RED BLOOD CELLS (BEAKER) (test 1 /100 WBC 0-0 tzaf=659) BASIC METABOLIC [id number] 02:50:00 Test Item Value Reference Range Comments SODIUM (BEAKER) (test 137 meq/L 136-145 xzwr=941) POTASSIUM (BEAKER) (test 3.1 meq/L 3.5-5.1 lvav=821) CHLORIDE (BEAKER) (test 104 meq/L 98-107 crla=980) CO2 (BEAKER) (test 24 meq/L 22-29 qfvv=727) BLOOD UREA NITROGEN 3 mg/dL 7-21 (BEAKER) (test nnqv=818) CREATININE (BEAKER) (test 0.50 mg/dL 0.57-1.25 nlws=803) GLUCOSE RANDOM (BEAKER) 124 mg/dL 70-105 (test bnuv=624) CALCIUM (BEAKER) (test 6.5 mg/dL 8.4-10.2 dlhr=399) EGFR (BEAKER) (test 193 mL/min/1.73 sq m ESTIMATED GFR IS NOT dhhs=3007) ACCURATE CREATININE CLEARANCE IN PREDICTING GLOMERULAR FILTRATION RATE. ESTIMATED GFR IS NOT APPLICABLE FOR DIALYSIS PATIENTS. [id number] 02:14:00 Test Item Value Reference Range Comments PHOSPHORUS (BEAKER) (test grda=061) 2.6 mg/dL 2.3-4.7 [id number] 02:14:00 Test Item Value Reference Range Comments MAGNESIUM (BEAKER) (test qjxc=439) 1.9 mg/dL 1.6-2.6 HEMOGLOBIN AND [id number] 01:13:00 Test Item Value Reference Range Comments HEMOGLOBIN (BEAKER) (test ysjm=795) 8.1 GM/DL 13.7-17.5 HEMATOCRIT (BEAKER) (test tdgv=992) 23.8 % 40.1-51.0 POCT-GLUCOSE [id number] 20:56:00 Test Item Value Reference Range Comments POC-GLUCOSE METER (BEAKER) 105 mg/dL 70-110 TESTED AT [facility] [address] [facility] (test rcko=8343) [facility] [id number] COMPREHENSIVE METABOLIC [id number] 14:51:00 Test Item Value Reference Range Comments TOTAL PROTEIN (BEAKER) 6.0 gm/dL 6.0-8.3 (test pnyg=255) ALBUMIN (BEAKER) (test 2.8 g/dL 3.5-5.0 vhdt=0038) ALKALINE PHOSPHATASE 489 U/L 40-150 (BEAKER) (test thdv=855) BILIRUBIN TOTAL (BEAKER) 2.7 mg/dL 0.2-1.2 (test cfvv=711) SODIUM (BEAKER) (test 141 meq/L 136-145 yclv=416) POTASSIUM (BEAKER) (test 2.6 meq/L 3.5-5.1 nalm=897) CHLORIDE (BEAKER) (test 103 meq/L 98-107 rgmg=712) CO2 (BEAKER) (test 28 meq/L 22-29 kbja=367) BLOOD UREA NITROGEN 5 mg/dL 7-21 (BEAKER) (test ebdn=434) CREATININE (BEAKER) (test 0.54 mg/dL 0.57-1.25 tbxl=726) GLUCOSE RANDOM (BEAKER) 88 mg/dL 70-105 (test nvnc=986) CALCIUM (BEAKER) (test 7.1 mg/dL 8.4-10.2 ykmr=726) AST (SGOT) (BEAKER) (test 168 U/L 5-34 zutj=880) ALT (SGPT) (BEAKER) (test 61 U/L 6-55 mnqx=289) EGFR (BEAKER) (test 176 mL/min/1.73 sq ESTIMATED GFR IS NOT lsea=3547) m ACCURATE CREATININE CLEARANCE IN PREDICTING GLOMERULAR FILTRATION RATE. ESTIMATED GFR IS NOT APPLICABLE FOR DIALYSIS PATIENTS. Specimen slightly [id number] 14:51:00 Test Item Value Reference Range Comments PHOSPHORUS (BEAKER) (test bkdh=292) 0.9 mg/dL 2.3-4.7 [id number] 14:41:00 Test Item Value Reference Range Comments MAGNESIUM (BEAKER) (test ehru=749) 1.3 mg/dL 1.6-2.6 [id number] 14:41:00 Test Item Value Reference Range Comments AMYLASE (BEAKER) (test xwil=639) 160 U/L 25-125 Specimen slightly ictericLACTATE DEHYDROGENASE (LDH)2019-02-12 14:41:00 Test Item Value Reference Range Comments LACTATE DEHYDROGENASE (BEAKER) (test qspr=525) 572 U/L 125-220 [id number] 14:41:00 Test Item Value Reference Range Comments LIPASE (BEAKER) (test jmir=431) 562 U/L 8-78 Specimen slightly [id number] 14:39:00 Test Item Value Reference Range Comments ETHANOL (BEAKER) (test jtbv=358) < mg/dL <=10 [id number] 14:27:00 Test Item Value Reference Range Comments D-DIMER QUANTITATIVE (BEAKER) (test fndr=172) 4.23 MG/L FEU <0.50 Intended Use: The [...] of thrombosis is within 95-100% range.LACTIC ACID, [id number] 14:25:00 Test Item Value Reference Range Comments LACTATE BLOOD VENOUS (2) (BEAKER) (test 1.5 mmol/L 0.5-2.2 yxmy=0597) [id number] 14:21:00 Test Item Value Reference Range Comments AMMONIA (BEAKER) (test iuxj=979) 50 mol/L 18-72 [id number] 14:17:00 Test Item Value Reference Range Comments PROTIME (BEAKER) (test zhvn=458) 17.8 seconds 11.9-14.2 INR (BEAKER) (test ussj=555) 1.6 <=5.9 PARTIAL THROMBOPLASTIN TIME (BEAKER) (test 34.9 seconds 22.5-36.0 liml=759) Effective 12/11/2018: PT Reference Range ChangeNew: 11.9-14.2 Previous: 11.7- 14.7RECOMMENDED COUMADIN/WARFARIN INR THERAPY RANGESSTANDARD DOSE: 2.0-3.0 Includes: PROPHYLAXIS for venous thrombosis, systemic embolization; TREATMENT for venous thrombosis and/or pulmonary embolus.HIGH RISK: Target INR is2.5-3.5 for patients wiht mechanical heart valves.[id number] 14:17:00 Test Item Value Reference Range Comments FIBRINOGEN LEVEL (BEAKER) (test tclh=194) 304 mg/dl 225-434 CBC (HEMOGRAM ONLY)2019-02-12 14:13:00 Test Item Value Reference Range Comments WHITE BLOOD CELL COUNT 5.0 K/ L 3.5-10.5 (BEAKER) (test urmc=016) RED BLOOD CELL COUNT (BEAKER) 2.64 M/ L 4.63-6.08 (test tmcf=674) HEMOGLOBIN (BEAKER) (test 9.0 GM/DL 13.7-17.5 tqmg=686) HEMATOCRIT (BEAKER) (test 27.0 % 40.1-51.0 jjzb=425) MEAN CORPUSCULAR VOLUME 102.3 fL 79.0-92.2 (BEAKER) (test edmz=091) MEAN CORPUSCULAR HEMOGLOBIN 34.1 pg 25.7-32.2 (BEAKER) (test tebn=661) MEAN CORPUSCULAR HEMOGLOBIN 33.3 GM/DL 32.3-36.5 CONC (BEAKER) (test emhl=684) RED CELL DISTRIBUTION WIDTH % 11.6-14.4 Unable to report due to (BEAKER) (test ptmn=209) abnormal Platelet population distribution. PLATELET COUNT (BEAKER) (test 146 K/CU MM 150-450 gjpw=965) MEAN PLATELET VOLUME (BEAKER) 10.0 fL 9.4-12.4 (test dzyc=720) NUCLEATED RED BLOOD CELLS 1 /100 WBC 0-0 (BEAKER) (test hsmy=354) CBC W/PLT COUNT & AUTO [id number] 05:36:00 Test Item Value Reference Range Comments WHITE BLOOD CELL COUNT (BEAKER) (test noky=692) 3.1 K/ L 3.5-10.5 RED BLOOD CELL COUNT (BEAKER) (test vfwt=707) 3.39 M/ L 4.63-6.08 HEMOGLOBIN (BEAKER) (test dcxc=846) 11.5 GM/DL 13.7-17.5 HEMATOCRIT (BEAKER) (test lnqt=443) 33.7 % 40.1-51.0 MEAN CORPUSCULAR VOLUME (BEAKER) (test rmaf=131) 99.4 fL 79.0-92.2 MEAN CORPUSCULAR HEMOGLOBIN (BEAKER) (test 33.9 pg 25.7-32.2 fvjw=805) MEAN CORPUSCULAR HEMOGLOBIN CONC (BEAKER) (test 34.1 GM/DL 32.3-36.5 xqux=132) RED CELL DISTRIBUTION WIDTH (BEAKER) (test 12.8 % 11.6-14.4 fvez=424) PLATELET COUNT (BEAKER) (test qyub=053) 130 K/CU MM 150-450 MEAN PLATELET VOLUME (BEAKER) (test rmwg=291) 10.4 fL 9.4-12.4 NUCLEATED RED BLOOD CELLS (BEAKER) (test 0 /100 WBC 0-0 wrxj=677) NEUTROPHILS RELATIVE PERCENT (BEAKER) (test 51 % gvgs=284) LYMPHOCYTES RELATIVE PERCENT (BEAKER) (test 31 % wnuc=185) MONOCYTES RELATIVE PERCENT (BEAKER) (test 12 % aidd=625) EOSINOPHILS RELATIVE PERCENT (BEAKER) (test 4 % gvad=983) BASOPHILS RELATIVE PERCENT (BEAKER) (test 1 % ijzc=909) NEUTROPHILS ABSOLUTE COUNT (BEAKER) (test 1.61 K/ L 1.78-5.38 vyln=491) LYMPHOCYTES ABSOLUTE COUNT (BEAKER) (test 0.98 K/ L 1.32-3.57 ycxz=257) MONOCYTES ABSOLUTE COUNT (BEAKER) (test 0.38 K/ L 0.30-0.82 kvdo=977) EOSINOPHILS ABSOLUTE COUNT (BEAKER) (test 0.11 K/ L 0.04-0.54 urfd=954) BASOPHILS ABSOLUTE COUNT (BEAKER) (test 0.04 K/ L 0.01-0.08 qqou=171) IMMATURE GRANULOCYTES-RELATIVE PERCENT (BEAKER) 1 % 0-1 (test rhwu=7192) MR, ABDOMEN, [id number] 13:31:00FINAL REPORT MRCP, MRI of abdomen without [...] MDReport Verified Date/Time: 12/12/2018 13:31:00 Reading Location: [facility] B1 C013Y CT Body Reading Room COMPREHENSIVE METABOLIC [id number] 09:56:00 Test Item Value Reference Range Comments TOTAL PROTEIN (BEAKER) 5.5 gm/dL 6.0-8.3 (test hytr=725) ALBUMIN (BEAKER) (test 3.1 g/dL 3.5-5.0 curl=2251) ALKALINE PHOSPHATASE 116 U/L 40-150 (BEAKER) (test ebua=709) BILIRUBIN TOTAL (BEAKER) 1.9 mg/dL 0.2-1.2 (test otwu=508) SODIUM (BEAKER) (test 139 meq/L 136-145 erhz=143) POTASSIUM (BEAKER) (test 3.0 meq/L 3.5-5.1 hmzj=441) CHLORIDE (BEAKER) (test 107 meq/L 98-107 dprn=281) CO2 (BEAKER) (test 23 meq/L 22-29 ocsv=113) BLOOD UREA NITROGEN 4 mg/dL 7-21 (BEAKER) (test zkyb=412) CREATININE (BEAKER) (test 0.56 mg/dL 0.57-1.25 yfsu=307) GLUCOSE RANDOM (BEAKER) 116 mg/dL 70-105 (test gmob=033) CALCIUM (BEAKER) (test 7.4 mg/dL 8.4-10.2 wprp=446) AST (SGOT) (BEAKER) (test 297 U/L 5-34 ojnd=765) ALT (SGPT) (BEAKER) (test 173 U/L 6-55 trvc=638) EGFR (BEAKER) (test 169 mL/min/1.73 sq ESTIMATED GFR IS NOT ashe=3144) m ACCURATE CREATININE CLEARANCE IN PREDICTING GLOMERULAR FILTRATION RATE. ESTIMATED GFR IS NOT APPLICABLE FOR DIALYSIS PATIENTS. CBC W/PLT COUNT & AUTO [id number] 04:42:00 Test Item Value Reference Range Comments WHITE BLOOD CELL COUNT (BEAKER) (test erjg=703) 3.1 K/ L 3.5-10.5 RED BLOOD CELL COUNT (BEAKER) (test eaib=298) 3.09 M/ L 4.63-6.08 HEMOGLOBIN (BEAKER) (test dztk=172) 10.7 GM/DL 13.7-17.5 HEMATOCRIT (BEAKER) (test ejkt=411) 30.5 % 40.1-51.0 MEAN CORPUSCULAR VOLUME (BEAKER) (test bndd=557) 98.7 fL 79.0-92.2 MEAN CORPUSCULAR HEMOGLOBIN (BEAKER) (test 34.6 pg 25.7-32.2 blos=013) MEAN CORPUSCULAR HEMOGLOBIN CONC (BEAKER) (test 35.1 GM/DL 32.3-36.5 mhis=644) RED CELL DISTRIBUTION WIDTH (BEAKER) (test 12.4 % 11.6-14.4 kujj=346) PLATELET COUNT (BEAKER) (test czvz=747) 99 K/CU MM 150-450 MEAN PLATELET VOLUME (BEAKER) (test jqcm=503) 11.0 fL 9.4-12.4 NUCLEATED RED BLOOD CELLS (BEAKER) (test 0 /100 WBC 0-0 gbrs=595) NEUTROPHILS RELATIVE PERCENT (BEAKER) (test 60 % hlka=860) LYMPHOCYTES RELATIVE PERCENT (BEAKER) (test 26 % doil=572) MONOCYTES RELATIVE PERCENT (BEAKER) (test 11 % pxpl=061) EOSINOPHILS RELATIVE PERCENT (BEAKER) (test 2 % jphz=956) BASOPHILS RELATIVE PERCENT (BEAKER) (test 1 % uhle=876) NEUTROPHILS ABSOLUTE COUNT (BEAKER) (test 1.84 K/ L 1.78-5.38 lqrs=227) LYMPHOCYTES ABSOLUTE COUNT (BEAKER) (test 0.81 K/ L 1.32-3.57 jpiw=310) MONOCYTES ABSOLUTE COUNT (BEAKER) (test kdac=491) 0.34 K/ L 0.30-0.82 EOSINOPHILS ABSOLUTE COUNT (BEAKER) (test 0.06 K/ L 0.04-0.54 surj=947) BASOPHILS ABSOLUTE COUNT (BEAKER) (test nztt=492) 0.03 K/ L 0.01-0.08 IMMATURE GRANULOCYTES-RELATIVE PERCENT (BEAKER) 0 % 0-1 (test vxok=3844) FL, ESOPH, SWALLOW FUNCTION, WITH CINE OR [id number] 12:02:00Reason for exam:->pneumomediastinum, rule out esophageal perforationFINAL [...] Verified Date/Time: 12/11/2018 12:02: 17 Reading Location: [address] Ortho Consult Reading Room BASI METABOLIC [id number] 07:31:00 Test Item Value Reference Range Comments SODIUM (BEAKER) (test 139 meq/L 136-145 vmmb=315) POTASSIUM (BEAKER) (test 3.4 meq/L 3.5-5.1 Specimen slightly vitb=814) hemolyzed CHLORIDE (BEAKER) (test 103 meq/L 98-107 yiyj=869) CO2 (BEAKER) (test 20 meq/L 22-29 knjk=686) BLOOD UREA NITROGEN 18 mg/dL 7-21 (BEAKER) (test warp=414) CREATININE (BEAKER) (test 0.73 mg/dL 0.57-1.25 Specimen slightly eodi=358) hemolyzed GLUCOSE RANDOM (BEAKER) 67 mg/dL 70-105 (test gniq=642) CALCIUM (BEAKER) (test 8.6 mg/dL 8.4-10.2 qosp=462) EGFR (BEAKER) (test 125 mL/min/1.73 sq m ESTIMATED GFR IS NOT czxc=0746) ACCURATE CREATININE CLEARANCE IN PREDICTING GLOMERULAR FILTRATION RATE. ESTIMATED GFR IS NOT APPLICABLE FOR DIALYSIS PATIENTS. CBC W/PLT COUNT & AUTO [id number] 07:12:00 Test Item Value Reference Range Comments WHITE BLOOD CELL COUNT (BEAKER) (test nxgf=212) 4.6 K/ L 3.5-10.5 RED BLOOD CELL COUNT (BEAKER) (test dbkc=928) 3.19 M/ L 4.63-6.08 HEMOGLOBIN (BEAKER) (test zxap=588) 11.1 GM/DL 13.7-17.5 HEMATOCRIT (BEAKER) (test uthu=260) 31.0 % 40.1-51.0 MEAN CORPUSCULAR VOLUME (BEAKER) (test syhm=181) 97.2 fL 79.0-92.2 MEAN CORPUSCULAR HEMOGLOBIN (BEAKER) (test 34.8 pg 25.7-32.2 xfth=202) MEAN CORPUSCULAR HEMOGLOBIN CONC (BEAKER) (test 35.8 GM/DL 32.3-36.5 flat=944) RED CELL DISTRIBUTION WIDTH (BEAKER) (test 13.0 % 11.6-14.4 jomz=794) PLATELET COUNT (BEAKER) (test qjsj=416) 103 K/CU MM 150-450 MEAN PLATELET VOLUME (BEAKER) (test kkgf=104) 11.0 fL 9.4-12.4 NUCLEATED RED BLOOD CELLS (BEAKER) (test 0 /100 WBC 0-0 cztw=740) NEUTROPHILS RELATIVE PERCENT (BEAKER) (test 73 % pmia=987) LYMPHOCYTES RELATIVE PERCENT (BEAKER) (test 16 % reah=393) MONOCYTES RELATIVE PERCENT (BEAKER) (test 9 % xktv=119) EOSINOPHILS RELATIVE PERCENT (BEAKER) (test 1 % dton=521) BASOPHILS RELATIVE PERCENT (BEAKER) (test 0 % uish=719) NEUTROPHILS ABSOLUTE COUNT (BEAKER) (test 3.36 K/ L 1.78-5.38 hqtw=562) LYMPHOCYTES ABSOLUTE COUNT (BEAKER) (test 0.75 K/ L 1.32-3.57 lbps=081) MONOCYTES ABSOLUTE COUNT (BEAKER) (test 0.41 K/ L 0.30-0.82 hgth=573) EOSINOPHILS ABSOLUTE COUNT (BEAKER) (test 0.04 K/ L 0.04-0.54 ghlx=843) BASOPHILS ABSOLUTE COUNT (BEAKER) (test 0.02 K/ L 0.01-0.08 zldp=786) IMMATURE GRANULOCYTES-RELATIVE PERCENT (BEAKER) 1 % 0-1 (test ppnx=3883) RAD, CHEST, 1 VIEW, NON [id number] 20:13:00Reason for exam:-> pneumomediastinumShould this be performed [...] Verified Date /Time: 12/10/2018 20:13:39 Reading Location: [address] Reading Room [id number] 19:12:00 Test Item Value Reference Range Comments MAGNESIUM (BEAKER) (test 1.8 mg/dL 1.6-2.6 Specimen slightly hemolyzed vcae=046) COMPREHENSIVE METABOLIC [id number] 19:12:00 Test Item Value Reference Range Comments TOTAL PROTEIN (BEAKER) 6.3 gm/dL 6.0-8.3 Specimen slightly (test wqkr=130) hemolyzed ALBUMIN (BEAKER) (test 3.7 g/dL 3.5-5.0 Specimen slightly mcyq=9266) hemolyzed ALKALINE PHOSPHATASE 129 U/L 40-150 (BEAKER) (test tbkz=792) BILIRUBIN TOTAL (BEAKER) 2.9 mg/dL 0.2-1.2 Specimen slightly (test ufin=147) hemolyzed SODIUM (BEAKER) (test 137 meq/L 136-145 agzb=922) POTASSIUM (BEAKER) (test 2.7 meq/L 3.5-5.1 Specimen slightly voks=927) hemolyzed CHLORIDE (BEAKER) (test 99 meq/L 98-107 tsyh=008) CO2 (BEAKER) (test 23 meq/L 22-29 rvyt=481) BLOOD UREA NITROGEN 22 mg/dL 7-21 (BEAKER) (test snhg=045) CREATININE (BEAKER) (test 1.28 mg/dL 0.57-1.25 Specimen slightly ebhi=615) hemolyzed GLUCOSE RANDOM (BEAKER) 78 mg/dL 70-105 (test tcms=416) CALCIUM (BEAKER) (test 8.5 mg/dL 8.4-10.2 hmsv=857) AST (SGOT) (BEAKER) (test 502 U/L 5-34 Specimen slightly fknj=766) hemolyzed ALT (SGPT) (BEAKER) (test 225 U/L 6-55 Specimen slightly hktk=226) hemolyzed EGFR (BEAKER) (test 65 mL/min/1.73 sq m ESTIMATED GFR IS NOT okzd=0501) ACCURATE CREATININE CLEARANCE IN PREDICTING GLOMERULAR FILTRATION RATE. ESTIMATED GFR IS NOT APPLICABLE FOR DIALYSIS PATIENTS. Specimen slightly ictericPROTHROMBIN [id number] 18:53:00 Test Item Value Reference Range Comments PROTIME (BEAKER) (test mnlt=698) 15.8 seconds 11.7-14.7 INR (BEAKER) (test kpfa=587) 1.3 <=5.9 RECOMMENDED COUMADIN/WARFARIN INR THERAPY RANGESSTANDARD DOSE: 2.0 - 3.0 Includes: PROPHYLAXIS forvenous thrombosis, systemic embolization; TREATMENT for venous thrombosis and/or pulmonary embolus.HIGH RISK: Target INR is 2.5-3.5 for patients with mechanical heart valves.CBC W/PLT COUNT & AUTO [id number] 18:49:00 Test Item Value Reference Range Comments WHITE BLOOD CELL COUNT (BEAKER) (test oggb=156) 6.0 K/ L 3.5-10.5 RED BLOOD CELL COUNT (BEAKER) (test gtjg=356) 3.44 M/ L 4.63-6.08 HEMOGLOBIN (BEAKER) (test ioqr=062) 11.6 GM/DL 13.7-17.5 HEMATOCRIT (BEAKER) (test jfju=743) 34.1 % 40.1-51.0 MEAN CORPUSCULAR VOLUME (BEAKER) (test qlyz=741) 99.1 fL 79.0-92.2 MEAN CORPUSCULAR HEMOGLOBIN (BEAKER) (test 33.7 pg 25.7-32.2 zxtp=833) MEAN CORPUSCULAR HEMOGLOBIN CONC (BEAKER) (test 34.0 GM/DL 32.3-36.5 fxup=304) RED CELL DISTRIBUTION WIDTH (BEAKER) (test 13.1 % 11.6-14.4 uqbt=198) PLATELET COUNT (BEAKER) (test hhws=018) 109 K/CU MM 150-450 MEAN PLATELET VOLUME (BEAKER) (test tprm=782) 11.0 fL 9.4-12.4 NUCLEATED RED BLOOD CELLS (BEAKER) (test 0 /100 WBC 0-0 phaa=581) NEUTROPHILS RELATIVE PERCENT (BEAKER) (test 81 % osmc=576) LYMPHOCYTES RELATIVE PERCENT (BEAKER) (test 12 % hotq=271) MONOCYTES RELATIVE PERCENT (BEAKER) (test 7 % cuxt=170) EOSINOPHILS RELATIVE PERCENT (BEAKER) (test 0 % xamg=908) BASOPHILS RELATIVE PERCENT (BEAKER) (test 0 % ckrx=391) NEUTROPHILS ABSOLUTE COUNT (BEAKER) (test 4.84 K/ L 1.78-5.38 mguz=990) LYMPHOCYTES ABSOLUTE COUNT (BEAKER) (test 0.72 K/ L 1.32-3.57 eneh=668) MONOCYTES ABSOLUTE COUNT (BEAKER) (test 0.41 K/ L 0.30-0.82 helg=632) EOSINOPHILS ABSOLUTE COUNT (BEAKER) (test 0.01 K/ L 0.04-0.54 mvno=495) BASOPHILS ABSOLUTE COUNT (BEAKER) (test 0.02 K/ L 0.01-0.08 wnsu=790) IMMATURE GRANULOCYTES-RELATIVE PERCENT (BEAKER) 0 % 0-1 (test mmkq=6082) BLOOD [id number] 20:01:00 Test Item Value Reference Range Comments CULTURE (BEAKER) (test jjgz=5313) No growth in 5 days BLOOD [id number] 20:01:00 Test Item Value Reference Range Comments CULTURE (BEAKER) (test ehsm=9539) No growth in 5 days RAD, CHEST, 1 VIEW, NON [id number] 13:13:00Reason for exam:->evalute for pneumoniaShould this be performed at the bedside?->YesAddendum BeginsREPORT STATUS:A Addendum:Clinical diagnosis alcohol withdrawalsyndrome, electrolyte disturbances, elevated liver function tests, pneumonia, Signed: Marilu Sharpe MDReport Verified Date/Time: 11/01/2018 13:13: 23 Reading Location: [address] Consult Reading RoomAddendum EndsFINAL REPORT [...] MDReport Verified Date/Time: 10/28 15:36:38 Reading Location: [facility] [id number] Consult Reading Room U/S, ABDOMINAL, WITH [id number] 10:43:00Reason for exam:->evaluate for portal hypertension, cirrhosis, [...] MDReport Verified Date/Time: 10/31/2018 10:43:58 Reading Location: [facility] [id number] Ultrasound Reading Room COMPREHENSIVE METABOLIC [id number] 06:57:00 Test Item Value Reference Range Comments TOTAL PROTEIN (BEAKER) 6.3 gm/dL 6.0-8.3 (test sogm=818) ALBUMIN (BEAKER) (test 3.4 g/dL 3.5-5.0 abdb=6501) ALKALINE PHOSPHATASE 165 U/L 40-150 (BEAKER) (test nvvp=060) BILIRUBIN TOTAL (BEAKER) 0.6 mg/dL 0.2-1.2 (test myvx=433) SODIUM (BEAKER) (test 140 meq/L 136-145 mrsn=261) POTASSIUM (BEAKER) (test 3.6 meq/L 3.5-5.1 uqag=355) CHLORIDE (BEAKER) (test 102 meq/L 98-107 kirv=644) CO2 (BEAKER) (test 29 meq/L 22-29 iwvy=742) BLOOD UREA NITROGEN 3 mg/dL 7-21 (BEAKER) (test pwak=832) CREATININE (BEAKER) (test 0.55 mg/dL 0.57-1.25 stat=807) GLUCOSE RANDOM (BEAKER) 89 mg/dL 70-105 (test mitw=168) CALCIUM (BEAKER) (test 9.2 mg/dL 8.4-10.2 busx=715) AST (SGOT) (BEAKER) (test 184 U/L 5-34 fnct=280) ALT (SGPT) (BEAKER) (test 156 U/L 6-55 okwx=876) EGFR (BEAKER) (test 173 mL/min/1.73 sq ESTIMATED GFR IS NOT iqbg=2360) m ACCURATE CREATININE CLEARANCE IN PREDICTING GLOMERULAR FILTRATION RATE. ESTIMATED GFR IS NOT APPLICABLE FOR DIALYSIS PATIENTS. HEMOGLOBIN [id number] 09:30:00 Test Item Value Reference Range Comments HEMOGLOBIN A1C (BEAKER) (test jgyq=543) 4.9 % 4.3-6.1 COMPREHENSIVE METABOLIC [id number] 05:17:00 Test Item Value Reference Range Comments TOTAL PROTEIN (BEAKER) 6.5 gm/dL 6.0-8.3 (test zins=637) ALBUMIN (BEAKER) (test 3.6 g/dL 3.5-5.0 qnmr=5685) ALKALINE PHOSPHATASE 170 U/L 40-150 (BEAKER) (test wnbc=051) BILIRUBIN TOTAL (BEAKER) 0.9 mg/dL 0.2-1.2 (test plan=182) SODIUM (BEAKER) (test 141 meq/L 136-145 iehr=952) POTASSIUM (BEAKER) (test 3.5 meq/L 3.5-5.1 jjvz=237) CHLORIDE (BEAKER) (test 104 meq/L 98-107 jwcg=848) CO2 (BEAKER) (test 26 meq/L 22-29 uoqe=754) BLOOD UREA NITROGEN 4 mg/dL 7-21 (BEAKER) (test icti=374) CREATININE (BEAKER) (test 0.55 mg/dL 0.57-1.25 cwrd=847) GLUCOSE RANDOM (BEAKER) 89 mg/dL 70-105 (test raiq=279) CALCIUM (BEAKER) (test 9.3 mg/dL 8.4-10.2 iepu=061) AST (SGOT) (BEAKER) (test 167 U/L 5-34 tpmo=097) ALT (SGPT) (BEAKER) (test 156 U/L 6-55 rqpb=975) EGFR (BEAKER) (test 173 mL/min/1.73 sq ESTIMATED GFR IS NOT rapn=6498) m ACCURATE CREATININE CLEARANCE IN PREDICTING GLOMERULAR FILTRATION RATE. ESTIMATED GFR IS NOT APPLICABLE FOR DIALYSIS PATIENTS. CBC W/PLT COUNT & AUTO [id number] 04:53:00 Test Item Value Reference Range Comments WHITE BLOOD CELL COUNT (BEAKER) (test jpgx=157) 3.4 K/ L 3.5-10.5 RED BLOOD CELL COUNT (BEAKER) (test nnxh=800) 3.45 M/ L 4.63-6.08 HEMOGLOBIN (BEAKER) (test qgpn=142) 11.8 GM/DL 13.7-17.5 HEMATOCRIT (BEAKER) (test nubz=144) 34.4 % 40.1-51.0 MEAN CORPUSCULAR VOLUME (BEAKER) (test muqe=840) 99.7 fL 79.0-92.2 MEAN CORPUSCULAR HEMOGLOBIN (BEAKER) (test 34.2 pg 25.7-32.2 dkjz=894) MEAN CORPUSCULAR HEMOGLOBIN CONC (BEAKER) (test 34.3 GM/DL 32.3-36.5 xhii=131) RED CELL DISTRIBUTION WIDTH (BEAKER) (test 12.2 % 11.6-14.4 acpb=422) PLATELET COUNT (BEAKER) (test qtbi=424) 175 K/CU MM 150-450 MEAN PLATELET VOLUME (BEAKER) (test lgog=800) 10.3 fL 9.4-12.4 NUCLEATED RED BLOOD CELLS (BEAKER) (test 0 /100 WBC 0-0 dgrk=135) NEUTROPHILS RELATIVE PERCENT (BEAKER) (test 55 % tfbd=892) LYMPHOCYTES RELATIVE PERCENT (BEAKER) (test 30 % orcf=281) MONOCYTES RELATIVE PERCENT (BEAKER) (test 11 % mmrf=926) EOSINOPHILS RELATIVE PERCENT (BEAKER) (test 3 % aurm=528) BASOPHILS RELATIVE PERCENT (BEAKER) (test 1 % tjmn=075) NEUTROPHILS ABSOLUTE COUNT (BEAKER) (test 1.89 K/ L 1.78-5.38 rgqt=889) LYMPHOCYTES ABSOLUTE COUNT (BEAKER) (test 1.03 K/ L 1.32-3.57 csvn=226) MONOCYTES ABSOLUTE COUNT (BEAKER) (test 0.39 K/ L 0.30-0.82 rkxf=174) EOSINOPHILS ABSOLUTE COUNT (BEAKER) (test 0.09 K/ L 0.04-0.54 xbgz=791) BASOPHILS ABSOLUTE COUNT (BEAKER) (test 0.03 K/ L 0.01-0.08 tqac=925) IMMATURE GRANULOCYTES-RELATIVE PERCENT (BEAKER) 0 % 0-1 (test vvrs=4448) LIPID [id number] 17:30:00 Test Item Value Reference Range Comments TRIGLYCERIDES (BEAKER) (test bath=338) 90 mg/dL CHOLESTEROL (BEAKER) (test jyuw=188) 140 mg/dL HDL CHOLESTEROL (BEAKER) (test tdwv=924) 37 mg/dL LDL CHOLESTEROL CALCULATED (BEAKER) (test 85 mg/dL lmgn=104) Triglyceride Reference Range: Low Risk <150 Borderline 150- 199 High Risk 200-499 Very High Risk >=500Cholesterol Reference Range: Low Risk <200 Borderline 200-239 High Risk > 240HDL Cholesterol Reference Range: Low Risk >=60 High Risk <40LDL Cholesterol Reference Range: Optimal <100 Near Optimal 100-129 Borderline 130-159 High 160-189 Very High >=190HEPATITIS C PCR, [id number] 14:57:00 Test Item Value Reference Range Comments HCV RESULT COMPONENT (BEAKER) HCV RNA not detected HCV RNA not detected (test mrbp=6748) This test uses a Real-Time Polymerase Chain Reaction (RT-PCR) methodology and was performed using [employer] Ampliprep/MARIANO TaqMan HCV test kit version 2.0 ( [employer]).Reportable range for this assay is 15 - 100,000, 000 IU per mL (1.18 - 8.00 Log IU/mL).RAD, ABDOMEN/KUB, 1 VIEW [id number] 14: 17:00Reason for exam:->abd distensionFINAL REPORT TECHNIQUE: Supine radiographs of the abdomen dated 10/29/2018. HISTORY: Abdominal distention. COMPARISON: None IMPRESSION:No air-filled, dilated loops of bowel to suggest obstruction. No free intraperitoneal air. No abnormal soft tissue mass or calcification. Signed:Nancy Concepcioneport Verified Date/ Time: 10/29/2018 14:17:17 Reading Location: [facility] Radiology Reading Room [id number] 13:28:00 Test Item Value Reference Range Comments RPR SCREEN (BEAKER) (test obzc=408) Nonreactive Nonreactive [id number] 05:12:00 Test Item Value Reference Range Comments PHOSPHORUS (BEAKER) (test puum=378) 2.5 mg/dL 2.3-4.7 COMPREHENSIVE METABOLIC [id number] 05:12:00 Test Item Value Reference Range Comments TOTAL PROTEIN (BEAKER) 6.9 gm/dL 6.0-8.3 (test wmxm=447) ALBUMIN (BEAKER) (test 3.9 g/dL 3.5-5.0 mbje=6315) ALKALINE PHOSPHATASE 200 U/L 40-150 (BEAKER) (test wfkw=114) BILIRUBIN TOTAL (BEAKER) 1.2 mg/dL 0.2-1.2 (test zqxl=815) SODIUM (BEAKER) (test 137 meq/L 136-145 wkfe=555) POTASSIUM (BEAKER) (test 3.3 meq/L 3.5-5.1 juyi=988) CHLORIDE (BEAKER) (test 97 meq/L 98-107 xbjx=120) CO2 (BEAKER) (test 27 meq/L 22-29 xciv=523) BLOOD UREA NITROGEN 3 mg/dL 7-21 (BEAKER) (test hhui=054) CREATININE (BEAKER) (test 0.57 mg/dL 0.57-1.25 ltvo=781) GLUCOSE RANDOM (BEAKER) 108 mg/dL 70-105 (test mddk=640) CALCIUM (BEAKER) (test 9.4 mg/dL 8.4-10.2 ioqi=980) AST (SGOT) (BEAKER) (test 263 U/L 5-34 bcub=360) ALT (SGPT) (BEAKER) (test 215 U/L 6-55 fryt=582) EGFR (BEAKER) (test 166 mL/min/1.73 sq ESTIMATED GFR IS NOT yvda=6169) m ACCURATE CREATININE CLEARANCE IN PREDICTING GLOMERULAR FILTRATION RATE. ESTIMATED GFR IS NOT APPLICABLE FOR DIALYSIS PATIENTS. PROTHROMBIN [id number] 04:53:00 Test Item Value Reference Range Comments PROTIME (BEAKER) (test cbup=898) 16.0 seconds 11.7-14.7 INR (BEAKER) (test kuho=134) 1.3 <=5.9 RECOMMENDED COUMADIN/WARFARIN INR THERAPY RANGESSTANDARD DOSE: 2.0 - 3.0 Includes: PROPHYLAXIS forvenous thrombosis, systemic embolization; TREATMENT for venous thrombosis and/or pulmonary embolus.HIGH RISK: Target INR is 2.5-3.5 for patients with mechanical heart valves.URINALYSIS W/ REFLEX URINE [id number] 18:43:00 Test Item Value Reference Range Comments COLOR (BEAKER) (test yljc=405) Yellow CLARITY (BEAKER) (test nptx=918) Clear SPECIFIC GRAVITY UA (BEAKER) (test lyoy=245) 1.007 1.001-1.035 PH UA (BEAKER) (test xnyc=881) 7.5 5.0-8.0 PROTEIN UA (BEAKER) (test ixyh=745) 20 mg/dL Negative GLUCOSE UA (BEAKER) (test kmxq=528) Negative Negative KETONES UA (BEAKER) (test sxbj=658) 20 mg/dL Negative BILIRUBIN UA (BEAKER) (test lwne=131) Negative Negative BLOOD UA (BEAKER) (test mqhm=599) Trace Negative NITRITE UA (BEAKER) (test hdpo=713) Negative Negative LEUKOCYTE ESTERASE UA (BEAKER) (test ilwf=169) Negative Negative UROBILINOGEN UA (BEAKER) (test kwat=797) 2.0 mg/dL 0.2-1.0 RBC UA (BEAKER) (test assl=271) 3 /HPF WBC UA (BEAKER) (test dyjr=525) < /HPF MUCUS (BEAKER) (test zrli=7129) Rare SOURCE(BEAKER) (test nyin=2598) VITAMIN B12 AND [id number] 15:08:00 Test Item Value Reference Range Comments VITAMIN B12 (BEAKER) (test qkmr=993) 1678 pg/mL 213-816 FOLATE (BEAKER) (test ibof=232) 19.4 ng/mL >=7.0 [id number] 14:48:00 Test Item Value Reference Range Comments FERRITIN (BEAKER) (test qflc=031) 1698 ng/mL 5-275 IRON, TIBC, % SAT. (WITHOUT FERRITIN)[id number] 13:26:00 Test Item Value Reference Range Comments IRON (BEAKER) (test xuuz=339) 44.0 ug/dL 40.0-160.0 TOTAL IRON BINDING CAPACITY (BEAKER) (test 186 ug/dL 250-450 jfzo=191) IRON % SATURATION (2) (BEAKER) (test xkjg=0831) 24 % 20-55 HEPATITIS B SURFACE [id number] 13:26:00 Test Item Value Reference Range Comments HEPATITIS B SURFACE ANTIGEN (2) (BEAKER) (test Nonreactive Nonreactive ntpx=0241) HEPATITIS C [id number] 13:26:00 Test Item Value Reference Range Comments HEPATITIS C ANTIBODY (BEAKER) (test ahat=605) Nonreactive Nonreactive HIV-1 ANTIGEN WITH HIV-1/2 [id number] 13:26:00 Test Item Value Reference Range Comments HIV-1 ANTIGEN WITH HIV 1\T\2 ANTIBODY (2) Nonreactive Nonreactive (BEAKER) (test csms=0373) HEPATITIS B SURFACE [id number] 13:19:00 Test Item Value Reference Range Comments HEPATITIS B SURFACE ANTIBODY (BEAKER) (test 34.5 mIU/mL <8.0 zxmm=025) HEPATITIS A ANTIBODY, [id number] 13:19:00 Test Item Value Reference Range Comments HEPATITIS A IGM ANTIBODY (BEAKER) (test Nonreactive Nonreactive oadf=410) HEPATITIS B CORE ANTIBODY, [id number] 13:19:00 Test Item Value Reference Range Comments HEPATITIS B CORE TOTAL ANTIBODY (BEAKER) (test Nonreactive Nonreactive pfzb=167) HEPATITIS A ANTIBODY, [id number] 13:19:00 Test Item Value Reference Range Comments HEPATITIS A IGG ANTIBODY (BEAKER) (test Nonreactive Nonreactive ndmg=9692) PROTHROMBIN [id number] 13:00:00 Test Item Value Reference Range Comments PROTIME (BEAKER) (test gikp=426) 15.5 seconds 11.7-14.7 INR (BEAKER) (test krbm=367) 1.2 <=5.9 RECOMMENDED COUMADIN/WARFARIN INR THERAPY RANGESSTANDARD DOSE: 2.0 - 3.0 Includes: PROPHYLAXIS forvenous thrombosis, systemic embolization; TREATMENT for venous thrombosis and/or pulmonary embolus.HIGH RISK: Target INR is 2.5-3.5 for patients with mechanical heart valves.[id number] 03:31:00 Test Item Value Reference Range Comments PHOSPHORUS (BEAKER) (test wajg=220) 3.5 mg/dL 2.3-4.7 [id number] 03:31:00 Test Item Value Reference Range Comments MAGNESIUM (BEAKER) (test ukrl=256) 1.5 mg/dL 1.6-2.6 COMPREHENSIVE METABOLIC [id number] 03:31:00 Test Item Value Reference Range Comments TOTAL PROTEIN (BEAKER) 6.5 gm/dL 6.0-8.3 (test ryjp=687) ALBUMIN (BEAKER) (test 3.7 g/dL 3.5-5.0 jbgg=9347) ALKALINE PHOSPHATASE 200 U/L 40-150 (BEAKER) (test tsmw=723) BILIRUBIN TOTAL (BEAKER) 0.8 mg/dL 0.2-1.2 (test edfw=138) SODIUM (BEAKER) (test 142 meq/L 136-145 shsp=303) POTASSIUM (BEAKER) (test 3.1 meq/L 3.5-5.1 ymeq=263) CHLORIDE (BEAKER) (test 103 meq/L 98-107 brfe=605) CO2 (BEAKER) (test 24 meq/L 22-29 ijbw=653) BLOOD UREA NITROGEN 4 mg/dL 7-21 (BEAKER) (test lgpl=924) CREATININE (BEAKER) (test 0.55 mg/dL 0.57-1.25 pznr=870) GLUCOSE RANDOM (BEAKER) 100 mg/dL 70-105 (test otko=531) CALCIUM (BEAKER) (test 8.5 mg/dL 8.4-10.2 ynfa=779) AST (SGOT) (BEAKER) (test 318 U/L 5-34 rmxr=787) ALT (SGPT) (BEAKER) (test 244 U/L 6-55 vpyw=970) EGFR (BEAKER) (test 173 mL/min/1.73 sq ESTIMATED GFR IS NOT bdvd=7287) m ACCURATE CREATININE CLEARANCE IN PREDICTING GLOMERULAR FILTRATION RATE. ESTIMATED GFR IS NOT APPLICABLE FOR DIALYSIS PATIENTS. CBC W/PLT COUNT & AUTO [id number] 03:03:00 Test Item Value Reference Range Comments WHITE BLOOD CELL COUNT (BEAKER) (test qbcf=036) 4.2 K/ L 3.5-10.5 RED BLOOD CELL COUNT (BEAKER) (test geym=934) 3.61 M/ L 4.63-6.08 HEMOGLOBIN (BEAKER) (test jfga=492) 12.3 GM/DL 13.7-17.5 HEMATOCRIT (BEAKER) (test dlfy=950) 35.9 % 40.1-51.0 MEAN CORPUSCULAR VOLUME (BEAKER) (test inoh=638) 99.4 fL 79.0-92.2 MEAN CORPUSCULAR HEMOGLOBIN (BEAKER) (test 34.1 pg 25.7-32.2 rgsp=035) MEAN CORPUSCULAR HEMOGLOBIN CONC (BEAKER) (test 34.3 GM/DL 32.3-36.5 cwdg=200) RED CELL DISTRIBUTION WIDTH (BEAKER) (test 12.3 % 11.6-14.4 rpun=924) PLATELET COUNT (BEAKER) (test mvdm=789) 122 K/CU MM 150-450 MEAN PLATELET VOLUME (BEAKER) (test gxqa=094) 9.8 fL 9.4-12.4 NUCLEATED RED BLOOD CELLS (BEAKER) (test 0 /100 WBC 0-0 vrco=198) NEUTROPHILS RELATIVE PERCENT (BEAKER) (test 70 % sjtd=333) LYMPHOCYTES RELATIVE PERCENT (BEAKER) (test 17 % tboj=489) MONOCYTES RELATIVE PERCENT (BEAKER) (test 11 % evxb=772) EOSINOPHILS RELATIVE PERCENT (BEAKER) (test 1 % flju=366) BASOPHILS RELATIVE PERCENT (BEAKER) (test 1 % mefy=864) NEUTROPHILS ABSOLUTE COUNT (BEAKER) (test 2.94 K/ L 1.78-5.38 ssui=024) LYMPHOCYTES ABSOLUTE COUNT (BEAKER) (test 0.73 K/ L 1.32-3.57 syuf=709) MONOCYTES ABSOLUTE COUNT (BEAKER) (test 0.45 K/ L 0.30-0.82 qwiu=166) EOSINOPHILS ABSOLUTE COUNT (BEAKER) (test 0.04 K/ L 0.04-0.54 kmhz=227) BASOPHILS ABSOLUTE COUNT (BEAKER) (test 0.02 K/ L 0.01-0.08 kfju=562) IMMATURE GRANULOCYTES-RELATIVE PERCENT (BEAKER) 1 % 0-1 (test tbhr=3790) POCT-GLUCOSE [id number] 12:15:00 Test Item Value Reference Range Comments POC-GLUCOSE METER (BEAKER) 99 mg/dL 70-110 TESTED AT [facility] [address] [facility] (test dgjo=0266) [facility] [address] [id number] 06:15:00 Test Item Value Reference Range Comments MAGNESIUM (BEAKER) (test wohf=277) 1.8 mg/dL 1.6-2.6 COMPREHENSIVE METABOLIC [id number] 06:15:00 Test Item Value Reference Range Comments TOTAL PROTEIN (BEAKER) 6.6 gm/dL 6.0-8.3 (test oatk=216) ALBUMIN (BEAKER) (test 3.6 g/dL 3.5-5.0 lzsv=2834) ALKALINE PHOSPHATASE 149 U/L 40-150 (BEAKER) (test euyt=492) BILIRUBIN TOTAL (BEAKER) 0.8 mg/dL 0.2-1.2 (test hmdb=722) SODIUM (BEAKER) (test 135 meq/L 136-145 gcqq=922) POTASSIUM (BEAKER) (test 3.6 meq/L 3.5-5.1 vpxj=645) CHLORIDE (BEAKER) (test 98 meq/L 98-107 cuxt=017) CO2 (BEAKER) (test 26 meq/L 22-29 kohl=721) BLOOD UREA NITROGEN 8 mg/dL 7-21 (BEAKER) (test tsse=844) CREATININE (BEAKER) (test 0.57 mg/dL 0.57-1.25 uejh=571) GLUCOSE RANDOM (BEAKER) 100 mg/dL 70-105 (test wqmf=060) CALCIUM (BEAKER) (test 9.5 mg/dL 8.4-10.2 oxgb=733) AST (SGOT) (BEAKER) (test 155 U/L 5-34 gvxr=528) ALT (SGPT) (BEAKER) (test 151 U/L 6-55 gmgu=239) EGFR (BEAKER) (test 166 mL/min/1.73 sq ESTIMATED GFR IS NOT vgfn=2229) m ACCURATE CREATININE CLEARANCE IN PREDICTING GLOMERULAR FILTRATION RATE. ESTIMATED GFR IS NOT APPLICABLE FOR DIALYSIS PATIENTS. CBC W/PLT COUNT & AUTO [id number] 05:30:00 Test Item Value Reference Range Comments WHITE BLOOD CELL COUNT (BEAKER) (test zpuu=377) 5.1 K/ L 3.5-10.5 RED BLOOD CELL COUNT (BEAKER) (test txur=559) 3.81 M/ L 4.63-6.08 HEMOGLOBIN (BEAKER) (test rcdw=968) 13.1 GM/DL 13.7-17.5 HEMATOCRIT (BEAKER) (test sfyj=538) 37.6 % 40.1-51.0 MEAN CORPUSCULAR VOLUME (BEAKER) (test yhvm=625) 98.7 fL 79.0-92.2 MEAN CORPUSCULAR HEMOGLOBIN (BEAKER) (test 34.4 pg 25.7-32.2 ujqp=731) MEAN CORPUSCULAR HEMOGLOBIN CONC (BEAKER) (test 34.8 GM/DL 32.3-36.5 xtyp=156) RED CELL DISTRIBUTION WIDTH (BEAKER) (test 11.5 % 11.6-14.4 lhor=867) PLATELET COUNT (BEAKER) (test onlo=942) 152 K/CU MM 150-450 MEAN PLATELET VOLUME (BEAKER) (test byom=670) 10.2 fL 9.4-12.4 NUCLEATED RED BLOOD CELLS (BEAKER) (test 0 /100 WBC 0-0 edsj=481) NEUTROPHILS RELATIVE PERCENT (BEAKER) (test 71 % uwzi=073) LYMPHOCYTES RELATIVE PERCENT (BEAKER) (test 14 % vulm=601) MONOCYTES RELATIVE PERCENT (BEAKER) (test 11 % kate=546) EOSINOPHILS RELATIVE PERCENT (BEAKER) (test 2 % jumb=394) BASOPHILS RELATIVE PERCENT (BEAKER) (test 1 % bvqy=398) NEUTROPHILS ABSOLUTE COUNT (BEAKER) (test 3.66 K/ L 1.78-5.38 tqtg=130) LYMPHOCYTES ABSOLUTE COUNT (BEAKER) (test 0.71 K/ L 1.32-3.57 nmde=332) MONOCYTES ABSOLUTE COUNT (BEAKER) (test 0.58 K/ L 0.30-0.82 csgj=538) EOSINOPHILS ABSOLUTE COUNT (BEAKER) (test 0.10 K/ L 0.04-0.54 mpgv=700) BASOPHILS ABSOLUTE COUNT (BEAKER) (test 0.04 K/ L 0.01-0.08 cxsj=796) IMMATURE GRANULOCYTES-RELATIVE PERCENT (BEAKER) 1 % 0-1 (test flwh=4357) POCT-GLUCOSE [id number] 11:54:00 Test Item Value Reference Range Comments POC-GLUCOSE METER (BEAKER) 83 mg/dL 70-110 TESTED AT [facility] [address] [facility] (test ahtr=1976) [facility] [address] [id number] 05:54:00 Test Item Value Reference Range Comments PHOSPHORUS (BEAKER) (test gdcs=888) 2.3 mg/dL 2.3-4.7 [id number] 05:54:00 Test Item Value Reference Range Comments MAGNESIUM (BEAKER) (test ycys=079) 2.0 mg/dL 1.6-2.6 COMPREHENSIVE METABOLIC [id number] 05:54:00 Test Item Value Reference Range Comments TOTAL PROTEIN (BEAKER) 6.0 gm/dL 6.0-8.3 (test litr=556) ALBUMIN (BEAKER) (test 3.2 g/dL 3.5-5.0 kctq=8285) ALKALINE PHOSPHATASE 134 U/L 40-150 (BEAKER) (test zalk=924) BILIRUBIN TOTAL (BEAKER) 1.1 mg/dL 0.2-1.2 (test eyoh=355) SODIUM (BEAKER) (test 134 meq/L 136-145 ziax=775) POTASSIUM (BEAKER) (test 3.6 meq/L 3.5-5.1 fxke=260) CHLORIDE (BEAKER) (test 100 meq/L 98-107 pkrw=322) CO2 (BEAKER) (test 26 meq/L 22-29 revf=101) BLOOD UREA NITROGEN 4 mg/dL 7-21 (BEAKER) (test htxp=717) CREATININE (BEAKER) (test 0.54 mg/dL 0.57-1.25 dwxs=994) GLUCOSE RANDOM (BEAKER) 141 mg/dL 70-105 (test izeh=575) CALCIUM (BEAKER) (test 8.8 mg/dL 8.4-10.2 jhxx=010) AST (SGOT) (BEAKER) (test 183 U/L 5-34 ufhe=222) ALT (SGPT) (BEAKER) (test 149 U/L 6-55 zktl=893) EGFR (BEAKER) (test 176 mL/min/1.73 sq ESTIMATED GFR IS NOT isgg=7204) m ACCURATE CREATININE CLEARANCE IN PREDICTING GLOMERULAR FILTRATION RATE. ESTIMATED GFR IS NOT APPLICABLE FOR DIALYSIS PATIENTS. LACTIC ACID, [id number] 05:35:00 Test Item Value Reference Range Comments LACTATE BLOOD VENOUS (2) (BEAKER) (test 1.0 mmol/L 0.5-2.2 koaq=5570) CBC W/PLT COUNT & AUTO [id number] 05:23:00 Test Item Value Reference Range Comments WHITE BLOOD CELL COUNT (BEAKER) (test wtls=584) 5.0 K/ L 3.5-10.5 RED BLOOD CELL COUNT (BEAKER) (test qylu=548) 3.88 M/ L 4.63-6.08 HEMOGLOBIN (BEAKER) (test yedk=037) 13.0 GM/DL 13.7-17.5 HEMATOCRIT (BEAKER) (test mskl=452) 38.5 % 40.1-51.0 MEAN CORPUSCULAR VOLUME (BEAKER) (test jaqc=802) 99.2 fL 79.0-92.2 MEAN CORPUSCULAR HEMOGLOBIN (BEAKER) (test 33.5 pg 25.7-32.2 uzuo=035) MEAN CORPUSCULAR HEMOGLOBIN CONC (BEAKER) (test 33.8 GM/DL 32.3-36.5 onwo=591) RED CELL DISTRIBUTION WIDTH (BEAKER) (test 11.6 % 11.6-14.4 lopu=293) PLATELET COUNT (BEAKER) (test oqdl=890) 113 K/CU MM 150-450 MEAN PLATELET VOLUME (BEAKER) (test mmne=165) 10.7 fL 9.4-12.4 NUCLEATED RED BLOOD CELLS (BEAKER) (test 0 /100 WBC 0-0 vpkp=950) NEUTROPHILS RELATIVE PERCENT (BEAKER) (test 72 % yhll=979) LYMPHOCYTES RELATIVE PERCENT (BEAKER) (test 15 % ulqm=045) MONOCYTES RELATIVE PERCENT (BEAKER) (test 10 % phuk=406) EOSINOPHILS RELATIVE PERCENT (BEAKER) (test 2 % smen=815) BASOPHILS RELATIVE PERCENT (BEAKER) (test 1 % oxes=002) NEUTROPHILS ABSOLUTE COUNT (BEAKER) (test 3.56 K/ L 1.78-5.38 drfw=398) LYMPHOCYTES ABSOLUTE COUNT (BEAKER) (test 0.76 K/ L 1.32-3.57 otxu=743) MONOCYTES ABSOLUTE COUNT (BEAKER) (test 0.49 K/ L 0.30-0.82 bezw=407) EOSINOPHILS ABSOLUTE COUNT (BEAKER) (test 0.10 K/ L 0.04-0.54 rrjb=821) BASOPHILS ABSOLUTE COUNT (BEAKER) (test 0.04 K/ L 0.01-0.08 dnbz=241) IMMATURE GRANULOCYTES-RELATIVE PERCENT (BEAKER) 1 % 0-1 (test zzvh=7359) POCT-GLUCOSE [id number] 18:44:00 Test Item Value Reference Range Comments POC-GLUCOSE METER (BEAKER) 100 mg/dL 70-110 TESTED AT [facility] [address] [facility] (test zgde=6030) [facility] [address] [id number] 17:58:00 Test Item Value Reference Range Comments PHOSPHORUS (BEAKER) (test cubh=399) 2.3 mg/dL 2.3-4.7 [id number] 17:58:00 Test Item Value Reference Range Comments MAGNESIUM (BEAKER) (test nnxt=095) 1.8 mg/dL 1.6-2.6 BASIC METABOLIC [id number] 17:58:00 Test Item Value Reference Range Comments SODIUM (BEAKER) (test 137 meq/L 136-145 iokh=634) POTASSIUM (BEAKER) (test 3.6 meq/L 3.5-5.1 mwdw=891) CHLORIDE (BEAKER) (test 102 meq/L 98-107 uoua=372) CO2 (BEAKER) (test 26 meq/L 22-29 bwgw=205) BLOOD UREA NITROGEN 4 mg/dL 7-21 (BEAKER) (test gfrw=567) CREATININE (BEAKER) (test 0.54 mg/dL 0.57-1.25 cfgh=575) GLUCOSE RANDOM (BEAKER) 123 mg/dL 70-105 (test mamv=183) CALCIUM (BEAKER) (test 8.7 mg/dL 8.4-10.2 lknu=546) EGFR (BEAKER) (test 177 mL/min/1.73 sq m ESTIMATED GFR IS NOT txjs=3506) ACCURATE CREATININE CLEARANCE IN PREDICTING GLOMERULAR FILTRATION RATE. ESTIMATED GFR IS NOT APPLICABLE FOR DIALYSIS PATIENTS. [id number] 16:55:00 Test Item Value Reference Range Comments MAGNESIUM (BEAKER) (test 1.6 mg/dL 1.6-2.6 Specimen slightly hemolyzed aumh=808) [id number] 16:55:00 Test Item Value Reference Range Comments PHOSPHORUS (BEAKER) (test 2.3 mg/dL 2.3-4.7 Specimen slightly hemolyzed jtjy=513) BASIC METABOLIC [id number] 16:55:00 Test Item Value Reference Range Comments SODIUM (BEAKER) (test 138 meq/L 136-145 nuou=828) POTASSIUM (BEAKER) (test 3.7 meq/L 3.5-5.1 Specimen slightly oogg=531) hemolyzed CHLORIDE (BEAKER) (test 105 meq/L 98-107 eiqm=643) CO2 (BEAKER) (test 23 meq/L 22-29 ryxq=554) BLOOD UREA NITROGEN 4 mg/dL 7-21 (BEAKER) (test vvvt=863) CREATININE (BEAKER) (test 0.51 mg/dL 0.57-1.25 Specimen slightly noha=975) hemolyzed GLUCOSE RANDOM (BEAKER) 99 mg/dL 70-105 (test qbia=049) CALCIUM (BEAKER) (test 8.0 mg/dL 8.4-10.2 ozgj=789) EGFR (BEAKER) (test 190 mL/min/1.73 sq m ESTIMATED GFR IS NOT raek=6441) ACCURATE CREATININE CLEARANCE IN PREDICTING GLOMERULAR FILTRATION RATE. ESTIMATED GFR IS NOT APPLICABLE FOR DIALYSIS PATIENTS. POCT-GLUCOSE [id number] 12:41:00 Test Item Value Reference Range Comments POC-GLUCOSE METER (BEAKER) 100 mg/dL 70-110 TESTED AT [facility] [address] [facility] (test fmce=9151) [facility] [address] POCT-GLUCOSE [id number] 08:07:00 Test Item Value Reference Range Comments POC-GLUCOSE METER (BEAKER) 99 mg/dL 70-110 TESTED AT [facility] [address] [facility] (test nlfc=8222) [facility] [address] U/S, ABDOMINAL, [id number] 08:05:00Abdomen limited area? Add comment if clarification [...] Verified Date /Time: 09/30/2018 08:05:48 Reading Location: [facility] [id number] Ultrasound Reading Room [id number] 07:23:00 Test Item Value Reference Range Comments PHOSPHORUS (BEAKER) (test zujh=832) 1.2 mg/dL 2.3-4.7 [id number] 07:11:00 Test Item Value Reference Range Comments MAGNESIUM (BEAKER) (test esxm=767) 2.3 mg/dL 1.6-2.6 COMPREHENSIVE METABOLIC [id number] 07:11:00 Test Item Value Reference Range Comments TOTAL PROTEIN (BEAKER) 5.8 gm/dL 6.0-8.3 (test mpjl=529) ALBUMIN (BEAKER) (test 3.1 g/dL 3.5-5.0 vzin=1015) ALKALINE PHOSPHATASE 141 U/L 40-150 (BEAKER) (test hljt=213) BILIRUBIN TOTAL (BEAKER) 1.1 mg/dL 0.2-1.2 (test slhf=011) SODIUM (BEAKER) (test 135 meq/L 136-145 kmyq=070) POTASSIUM (BEAKER) (test 3.7 meq/L 3.5-5.1 ahdw=589) CHLORIDE (BEAKER) (test 104 meq/L 98-107 mceb=460) CO2 (BEAKER) (test 24 meq/L 22-29 zeco=585) BLOOD UREA NITROGEN 5 mg/dL 7-21 (BEAKER) (test uqki=741) CREATININE (BEAKER) (test 0.39 mg/dL 0.57-1.25 back=654) GLUCOSE RANDOM (BEAKER) 114 mg/dL 70-105 (test ssot=770) CALCIUM (BEAKER) (test 8.3 mg/dL 8.4-10.2 esgw=434) AST (SGOT) (BEAKER) (test 354 U/L 5-34 vnoh=598) ALT (SGPT) (BEAKER) (test 188 U/L 6-55 oiiu=073) EGFR (BEAKER) (test 258 mL/min/1.73 sq ESTIMATED GFR IS NOT bbwh=3200) m ACCURATE CREATININE CLEARANCE IN PREDICTING GLOMERULAR FILTRATION RATE. ESTIMATED GFR IS NOT APPLICABLE FOR DIALYSIS PATIENTS. LACTIC ACID, [id number] 04:07:00 Test Item Value Reference Range Comments LACTATE BLOOD VENOUS (2) 0.8 mmol/L 0.5-2.2 Specimen slightly hemolyzed (BEAKER) (test lesm=2487) CBC W/PLT COUNT & AUTO [id number] 04:00:00 Test Item Value Reference Range Comments WHITE BLOOD CELL COUNT (BEAKER) (test mauv=646) 6.1 K/ L 3.5-10.5 RED BLOOD CELL COUNT (BEAKER) (test umdp=301) 3.87 M/ L 4.63-6.08 HEMOGLOBIN (BEAKER) (test mlgt=935) 13.3 GM/DL 13.7-17.5 HEMATOCRIT (BEAKER) (test yosw=542) 39.1 % 40.1-51.0 MEAN CORPUSCULAR VOLUME (BEAKER) (test coqn=143) 101.0 fL 79.0-92.2 MEAN CORPUSCULAR HEMOGLOBIN (BEAKER) (test 34.4 pg 25.7-32.2 sfhf=590) MEAN CORPUSCULAR HEMOGLOBIN CONC (BEAKER) (test 34.0 GM/DL 32.3-36.5 opda=689) RED CELL DISTRIBUTION WIDTH (BEAKER) (test 12.1 % 11.6-14.4 irbi=941) PLATELET COUNT (BEAKER) (test dbwr=533) 105 K/CU MM 150-450 MEAN PLATELET VOLUME (BEAKER) (test hpdz=045) 10.4 fL 9.4-12.4 NUCLEATED RED BLOOD CELLS (BEAKER) (test 0 /100 WBC 0-0 ioso=906) NEUTROPHILS RELATIVE PERCENT (BEAKER) (test 74 % dbfh=494) LYMPHOCYTES RELATIVE PERCENT (BEAKER) (test 14 % zfsr=833) MONOCYTES RELATIVE PERCENT (BEAKER) (test 10 % xmtz=001) EOSINOPHILS RELATIVE PERCENT (BEAKER) (test 1 % xnca=293) BASOPHILS RELATIVE PERCENT (BEAKER) (test 1 % jqnl=894) NEUTROPHILS ABSOLUTE COUNT (BEAKER) (test 4.52 K/ L 1.78-5.38 nifa=438) LYMPHOCYTES ABSOLUTE COUNT (BEAKER) (test 0.84 K/ L 1.32-3.57 hmip=869) MONOCYTES ABSOLUTE COUNT (BEAKER) (test 0.62 K/ L 0.30-0.82 zlwe=106) EOSINOPHILS ABSOLUTE COUNT (BEAKER) (test 0.06 K/ L 0.04-0.54 oucn=552) BASOPHILS ABSOLUTE COUNT (BEAKER) (test 0.03 K/ L 0.01-0.08 wxmd=398) IMMATURE GRANULOCYTES-RELATIVE PERCENT (BEAKER) 0 % 0-1 (test objl=1345) [id number] 01:32:00 Test Item Value Reference Range Comments PROCALCITONIN (BEAKER) (test xvdk=6692) 0.48 ng/mL <0.05 SEPSIS RISK (ng/mL)Low: 0.05-0.50Intermediate: 0.51-2.00High: & gt;=2.01BASIC METABOLIC [id number] 00:58:00 Test Item Value Reference Range Comments SODIUM (BEAKER) (test 135 meq/L 136-145 eptq=571) POTASSIUM (BEAKER) (test 3.4 meq/L 3.5-5.1 gatp=162) CHLORIDE (BEAKER) (test 104 meq/L 98-107 ferb=049) CO2 (BEAKER) (test 22 meq/L 22-29 ecaj=063) BLOOD UREA NITROGEN 7 mg/dL 7-21 (BEAKER) (test ifho=083) CREATININE (BEAKER) (test 0.55 mg/dL 0.57-1.25 vihf=584) GLUCOSE RANDOM (BEAKER) 113 mg/dL 70-105 (test anzx=649) CALCIUM (BEAKER) (test 8.4 mg/dL 8.4-10.2 dizw=617) EGFR (BEAKER) (test 174 mL/min/1.73 sq m ESTIMATED GFR IS NOT lgsm=2015) ACCURATE CREATININE CLEARANCE IN PREDICTING GLOMERULAR FILTRATION RATE. ESTIMATED GFR IS NOT APPLICABLE FOR DIALYSIS PATIENTS. [id number] 00:57:00 Test Item Value Reference Range Comments MAGNESIUM (BEAKER) (test sywl=959) 1.5 mg/dL 1.6-2.6 LACTIC ACID, [id number] 00:37:00 Test Item Value Reference Range Comments LACTATE BLOOD VENOUS (2) 0.7 mmol/L 0.5-2.2 Specimen moderately hemolyzed (BEAKER) (test eaya=0710) POCT-GLUCOSE [id number] 00:25:00 Test Item Value Reference Range Comments POC-GLUCOSE METER (BEAKER) 101 mg/dL 70-110 TESTED AT [address] (test hdzg=8227) [place] [id number] POCT-GLUCOSE [id number] 18:32:00 Test Item Value Reference Range Comments POC-GLUCOSE METER (BEAKER) 76 mg/dL 70-110 TESTED AT [address] (test hxvb=6657) [place] [address] [id number] 15:15:00 Test Item Value Reference Range Comments POTASSIUM (BEAKER) (test azna=189) 3.4 meq/L 3.5-5.1 [id number] 15:15:00 Test Item Value Reference Range Comments MAGNESIUM (BEAKER) (test bduk=212) 2.1 mg/dL 1.6-2.6 CT, [id number] 12:38:00FINAL REPORT CT abdomen with and without [...] Verified Date/Time: 09/29/2018 12:38:07 Reading Location : [address] Consult Reading Room POCT-GLUCOSE [id number] 11:49:00 Test Item Value Reference Range Comments POC-GLUCOSE METER (BEAKER) 83 mg/dL 70-110 TESTED AT [facility] [address] [place] [address] (test suap=0003) [facility] [address] [id number] 10:49:00 Test Item Value Reference Range Comments TRIGLYCERIDES (BEAKER) (test 71 mg/dL Specimen slightly hemolyzed wyid=180) TRIGLYCERIDE REFERENCE RANGELow Risk <150Borderline Risk 150-199High Risk 200-499Very High Risk>=[id number] 05:09:00 Test Item Value Reference Range Comments LIPASE (BEAKER) (test zhpi=316) > U/L 8-78 [id number] 04:35:00 Test Item Value Reference Range Comments MAGNESIUM (BEAKER) (test 1.6 mg/dL 1.6-2.6 Specimen slightly hemolyzed rwep=712) [id number] 04:35:00 Test Item Value Reference Range Comments PHOSPHORUS (BEAKER) (test 3.2 mg/dL 2.3-4.7 Specimen slightly hemolyzed hnrs=165) COMPREHENSIVE METABOLIC [id number] 04:35:00 Test Item Value Reference Range Comments TOTAL PROTEIN (BEAKER) 6.8 gm/dL 6.0-8.3 Specimen slightly (test xzfw=387) hemolyzed ALBUMIN (BEAKER) (test 3.8 g/dL 3.5-5.0 Specimen slightly sxff=6006) hemolyzed ALKALINE PHOSPHATASE 130 U/L 40-150 (BEAKER) (test qawn=133) BILIRUBIN TOTAL (BEAKER) 1.7 mg/dL 0.2-1.2 Specimen slightly (test xjpc=134) hemolyzed SODIUM (BEAKER) (test 138 meq/L 136-145 qdsk=730) POTASSIUM (BEAKER) (test 3.7 meq/L 3.5-5.1 Specimen slightly rttc=503) hemolyzed CHLORIDE (BEAKER) (test 103 meq/L 98-107 gdrd=077) CO2 (BEAKER) (test 17 meq/L 22-29 cein=099) BLOOD UREA NITROGEN 9 mg/dL 7-21 (BEAKER) (test hkez=980) CREATININE (BEAKER) (test 0.65 mg/dL 0.57-1.25 Specimen slightly sbme=981) hemolyzed GLUCOSE RANDOM (BEAKER) 103 mg/dL 70-105 (test apko=343) CALCIUM (BEAKER) (test 8.7 mg/dL 8.4-10.2 gaar=642) AST (SGOT) (BEAKER) (test 151 U/L 5-34 Specimen slightly herr=583) hemolyzed ALT (SGPT) (BEAKER) (test 143 U/L 6-55 Specimen slightly xhir=264) hemolyzed EGFR (BEAKER) (test 143 mL/min/1.73 sq ESTIMATED GFR IS NOT rgju=1106) m ACCURATE CREATININE CLEARANCE IN PREDICTING GLOMERULAR FILTRATION RATE. ESTIMATED GFR IS NOT APPLICABLE FOR DIALYSIS PATIENTS. PROTHROMBIN [id number] 04:34:00 Test Item Value Reference Range Comments PROTIME (BEAKER) (test tpby=945) 14.6 seconds 11.7-14.7 INR (BEAKER) (test baoh=181) 1.1 <=5.9 RECOMMENDED COUMADIN/WARFARIN INR THERAPY RANGESSTANDARD DOSE: 2.0 - 3.0 Includes: PROPHYLAXIS forvenous thrombosis, systemic embolization; TREATMENT for venous thrombosis and/or pulmonary embolus.HIGH RISK: Target INR is 2.5-3.5 for patients with mechanical heart valves.CBC W/PLT COUNT & AUTO [id number] 04:09:00 Test Item Value Reference Range Comments WHITE BLOOD CELL COUNT (BEAKER) (test rygd=916) 6.2 K/ L 3.5-10.5 RED BLOOD CELL COUNT (BEAKER) (test xzok=863) 4.33 M/ L 4.63-6.08 HEMOGLOBIN (BEAKER) (test utms=903) 15.0 GM/DL 13.7-17.5 HEMATOCRIT (BEAKER) (test lquu=314) 43.2 % 40.1-51.0 MEAN CORPUSCULAR VOLUME (BEAKER) (test feru=097) 99.8 fL 79.0-92.2 MEAN CORPUSCULAR HEMOGLOBIN (BEAKER) (test 34.6 pg 25.7-32.2 loqb=986) MEAN CORPUSCULAR HEMOGLOBIN CONC (BEAKER) (test 34.7 GM/DL 32.3-36.5 dmwv=224) RED CELL DISTRIBUTION WIDTH (BEAKER) (test 12.4 % 11.6-14.4 cxfo=757) PLATELET COUNT (BEAKER) (test vzhb=289) 160 K/CU MM 150-450 MEAN PLATELET VOLUME (BEAKER) (test dvta=321) 10.4 fL 9.4-12.4 NUCLEATED RED BLOOD CELLS (BEAKER) (test 0 /100 WBC 0-0 zvdw=781) NEUTROPHILS RELATIVE PERCENT (BEAKER) (test 81 % yiqh=335) LYMPHOCYTES RELATIVE PERCENT (BEAKER) (test 7 % emhn=416) MONOCYTES RELATIVE PERCENT (BEAKER) (test 10 % yghr=245) EOSINOPHILS RELATIVE PERCENT (BEAKER) (test 0 % shwh=647) BASOPHILS RELATIVE PERCENT (BEAKER) (test 1 % tuqa=166) NEUTROPHILS ABSOLUTE COUNT (BEAKER) (test 5.01 K/ L 1.78-5.38 jvqz=552) LYMPHOCYTES ABSOLUTE COUNT (BEAKER) (test 0.44 K/ L 1.32-3.57 vway=413) MONOCYTES ABSOLUTE COUNT (BEAKER) (test 0.62 K/ L 0.30-0.82 vxwb=781) EOSINOPHILS ABSOLUTE COUNT (BEAKER) (test 0.01 K/ L 0.04-0.54 nazh=750) BASOPHILS ABSOLUTE COUNT (BEAKER) (test 0.03 K/ L 0.01-0.08 ijtt=375) IMMATURE GRANULOCYTES-RELATIVE PERCENT (BEAKER) 1 % 0-1 (test mfbp=8681)
[2019-06-30] MEDS ORDERED: CIPROFLOXACIN 400mg IV 400 MG/200 ML BAG IV ONE (16:09)
[2019-06-30] MEDS ORDERED: MORPHINE 4 MG/ML SYR ONE ×2 (16:09→17:03)
[2019-06-30] MEDS ORDERED: NA CHLORIDE 0.9% 1,000 ML ONE (16:09)
[2019-06-30] MEDS ORDERED: ONDANSETRON 4 MG/2 ML VIAL ONE (16:09)
[2019-06-30] MEDS ORDERED: METRONIDAZOLE 500mg IVPB 500 MG/100 ML BAG IV ONE (16:09)
[2019-06-30 16:28] LABS: Absolute Lymphocytes (CBC) 0.9 K/uL (0.7-4.9); Basophils % 0.6 % (0-1.3); Hematocrit 40.1 % (39.6-49.0); Lymphocytes % 16.1 % (15.3-44.8); MPV 8.4 fL (7.6-11.3); RBC Red Blood Cell Count 4.56 M/uL (4.33-5.43)
[2019-06-30 16:43] LABS: ALT/SGPT 47 U/L (12-78); AST/SGOT 33 U/L (15-37); Albumin 4.5 g/dL (3.4-5.0); Alkaline Phosphatase 98 U/L (45-117); BUN Blood Urea Nitrogen 9 mg/dL (7-18); Bicarbonate 29 mmol/L (21-32); Bilirubin Direct < 0.1 mg/dL (0-0.2); Bilirubin Total 0.3 mg/dL (0.2-1.0); Glucose Level 94 mg/dL (74-106); Lipase 100 U/L (73-393); Potassium 3.4 mmol/L (3.5-5.1); Protein, Total 8.2 g/dL (6.4-8.2); Sodium Level 141 mmol/L (136-145)
[2019-06-30 17:21] LABS: Barbiturates NEGATIVE (NEGATIVE); Benzodiazepines NEGATIVE (NEGATIVE); Cocaine NEGATIVE (NEGATIVE); METHAMPHETAM NEGATIVE (NEGATIVE); Methadone NEGATIVE (NEGATIVE); Opiates POSITIVE (NEGATIVE); Phencyclidine NEGATIVE (NEGATIVE); THC Cannibis NEGATIVE (NEGATIVE)
--- NOTE | 2019-06-30 18:08 | RAD REPORT ---
EXAM DESCRIPTION: CT - Abdomen Pelvis W Contrast - 06/30/2019 5:51 pm CLINICAL HISTORY: Abdominal pain. COMPARISON: June 17, 2019 TECHNIQUE: Computed axial tomography of the abdomen and pelvis was obtained. 100 cc Isovue-300 is ad ministered intravenously. Oral contrast was given. All CT scans are performed using dose optimization technique as appropriate and may include automated exposure control or mA/KV adjustment according to patient size. FINDINGS: Mildly nodular liver. Varices. Mild splenomegaly. Small nonobstructing bilateral renal calculi 16 millimeter pancreatic pseudocyst has decreased in size. Previously it measured 32 millimeters. Perez creas is mildly inhomogeneous. Minimal peripancreatic stranding Gallbladder is distended No ascites IMPRESSION: Improvement in mild pancreatitis 16 millimeter pancreatic pseudocyst has decreased in size Gallbladder distention
--- NOTE | 2019-06-30 18:12 | ER ---
Nurse's Notes [facility] Name: Jonathan Gutierrez Age: 33 yrs Sex: Male : 1985 Arrival Date: 06/30/2019 Time: 14:56 Bed 6 Private MD: Diagnosis: Abdominal tenderness;Gastrointestinal hemorrhage, unspecified-lower stable;Vomiting;Other acute pancreatitis Presentation: 06/30 14:56 Presenting complaint: LUQ pain, N/V, and black stools x 9 days. Transition of care: hb patient was not received from another setting of care. Onset of symptoms was June 21, 2019. Risk Assessment: Do you want to hurt yourself or someone else? Patient reports no desire to harm self or others. Initial Sepsis Screen: Does the patient meet any 2 criteria? HR > 90 bpm. No. Patient's initial sepsis screen is negative. Care prior to arrival: None. 14:56 Method Of Arrival: Ambulatory 14:56 Acuity: NEO 3 hb Historical: - Allergies: 14:58 No Known Allergies; hb - Home Meds: 14:58 Thiamine Oral [Active]; lisinopril Oral [Active]; Creon Oral [Active]; Pepcid Oral hb [Active]; Folic Acid Oral [Active]; - PMHx: 14:58 ADD/ADHD; etoh abuse; Hypertension; liver "spot"; Pancreatitis; hb - Immunization history:: Adult Immunizations up to date. - Social history:: Smoking status: Patient uses tobacco products, smokes one pack cigarettes per day. - Ebola Screening: : No symptoms or risks identified at this time. Screenin:34 Abuse screen: Denies threats or abuse. Denies injuries from another. Nutritional ph screening: No deficits noted. Tuberculosis screening: No symptoms or risk factors identified. Fall Risk None identified. Assessment: 15:30 General: Appears in no apparent distress. comfortable, slender, well groomed, Behavior ph is calm, cooperative, appropriate for age. Pain: Complains of pain in left upper quadrant. Neuro: Level of Consciousness is awake, alert, obeys commands, Oriented to person, place, time, situation, Denies weakness dizziness. Cardiovascular: Capillary refill < 3 seconds in bilateral fingers Patient's skin is warm and dry. Cardiovascular: Denies chest pain, lightheadedness, shortness of breath. Respiratory: Airway is patent Respiratory effort is even, unlabored, Respiratory pattern is regular, symmetrical, Denies shortness of breath. GI: Abdomen is flat, non-distended, Reports upper abdominal pain, bloody stool, nausea, vomiting. Derm: Skin is intact, is healthy with good turgor, Skin is pink, warm \\T\\ dry. 16:30 Reassessment: Patient appears in no apparent distress at this time. Patient and/or ph family updated on plan of care and expected duration. Pain level reassessed. Patient is alert, oriented x 3, equal unlabored respirations, skin warm/dry/pink. 17:30 Reassessment: Patient appears in no apparent distress at this time. Patient and/or ph family updated on plan of care and expected duration. Pain level reassessed. Patient is alert, oriented x 3, equal unlabored respirations, skin warm/dry/pink. 18:58 Reassessment: Patient appears in no apparent distress at this time. Patient and/or ph family updated on plan of care and expected duration. Pain level reassessed. Patient is alert, oriented x 3, equal unlabored respirations, skin warm/dry/pink. Pt d/c home w/ prescriptions, instructed to follow up w/ GI. Vital Signs: 14:58 BP 177 / 84; Pulse 124; Resp 16; Temp 97.8; Pulse Ox 100% ; Weight 77.11 kg; Height 5 hb ft. 11 in. (180.34 cm); Pain 8/10; 16:30 BP 164 / 101; Pulse 107; Resp 18; Pulse Ox 99% on R/A; ph 18:09 BP 151 / 78; Pulse 101; Resp 18; Pulse Ox 98% on R/A; ph 19:00 BP 147 / 72; Pulse 99; Resp 18; Temp 97.5; Pulse Ox 99% on R/A; ph 14:58 Body Mass Index 23.71 (77.11 kg, 180.34 cm) hb ED Course: 14:56 Patient arrived in ED. mr 14:57 Triage completed. hb 14:58 Arm band placed on. hb 15:00 Prateek Lacey MD is Attending Physician. beck 15:25 Oral contrast given. vm2 15:30 Shelley Davis RN is Primary Nurse. ph 15:30 Oral contrast reported to be complete. vm2 16:00 Initial lab(s) drawn, by me, sent to lab. Inserted saline lock: 20 gauge in right ph antecubital area, using aseptic technique. Blood collected. 16:34 Patient has correct armband on for positive identification. Bed in low position. Call ph light in reach. Side rails up X 1. Pulse ox on. NIBP on. Door closed. Noise minimized. Warm blanket given. 16:34 No provider procedures requiring assistance completed. ph 18:12 Diane Almaraz MD is Referral Physician. beck 19:00 IV discontinued, intact, bleeding controlled, No redness/swelling at site. Pressure ph dressing applied. Administered Medications: 16:22 Drug: NS 0.9% 1000 ml Route: IV; Rate: 1 bolus; Site: right antecubital; ph 18:19 Follow up: Response: No adverse reaction; IV Status: Completed infusion; IV Intake: ph 1000ml 16:23 Drug: morphine 4 mg Route: IVP; Site: right antecubital; ph 17:00 Follow up: Response: No adverse reaction; Pain is unchanged, physician notified; RASS: ph Alert and Calm (0) 16:23 Drug: Zofran 4 mg Route: IVP; Site: right antecubital; ph 18:13 Follow up: Response: No adverse reaction; Nausea is decreased ph 16:24 Drug: Cipro 400 mg Volume: 200 ml; Route: IVPB; Infused Over: 60 mins; Site: right ph antecubital; 17:30 Follow up: Response: No adverse reaction; IV Status: Completed infusion ph 16:25 Drug: Flagyl 500 mg Volume: 100 ml; Route: IVPB; Rate: 200 ml/hr; Infused Over: 30 ph mins; Site: right antecubital; 17:05 Follow up: Response: No adverse reaction; IV Status: Completed infusion ph 17:15 Drug: morphine 4 mg Route: IVP; Site: left antecubital; ph 18:15 Follow up: Response: No adverse reaction; Pain is unchanged, physician notified; RASS: ph Alert and Calm (0) 18:55 Drug: [place] 10 mg-325 mg 1 tabs Route: PO; ph 18:57 Follow up: Response: No adverse reaction; Medication administered at discharge.; RASS: ph Alert and Calm (0) 18:56 Drug: Bentyl 20 mg Route: PO; ph 18:57 Follow up: Response: No adverse reaction; Medication administered at discharge. ph Intake: 18:19 IV: 1000ml; Total: 1000ml. ph Outcome: 18:12 Discharge ordered by . [facility] 19:00 Discharged to home ambulatory. ph 19:00 Condition: good 19:00 Discharge instructions given to patient, Instructed on discharge instructions, follow up and referral plans. medication usage, Demonstrated understanding of instructions, follow-up care, medications, Prescriptions given X 5 19:02 Patient left the ED. ph Signatures: Prateek Lacey MD MD cha Rivera, Marilu mr Shelley Davis RN RN Leslee Fernandez RN RN Carolin Lopez [facility] Corrections: (The following items were deleted from the chart) 18:12 17:30 morphine 4 mg IVP in left antecubital ph ph
--- NOTE | 2019-06-30 18:13 | EDPHYS ---
Physician Documentation [facility] Name: Jonathan Gutierrez Age: 33 yrs Sex: Male : 1985 Arrival Date: 06/30/2019 Time: 14:56 Bed 6 Private MD: ED Physician Prateek Lacey HPI: 06/30 15:18 This 33 yrs old Male presents to ER via Ambulatory with complaints of Bloody beck Stools, Vomiting. 15:18 The patient presents to the emergency department with nausea, vomiting, diarrhea, beck abdominal pain, of the suprapubic area, right upper quadrant, left upper quadrant, right lower quadrant and left lower quadrant. Onset: The symptoms/episode began/occurred 9 day(s) ago. Possible causes: flare up of bowel problem. The symptoms are aggravated by movement, pressure, food , The symptoms are alleviated by nothing. remaining still. Associated signs and symptoms: Pertinent positives: abdominal pain, diarrhea, nausea, vomiting. Severity of symptoms: At their worst the symptoms were moderate in the emergency department the symptoms are unchanged. The patient has not experienced similar symptoms in the past. Historical: - Allergies: 14:58 No Known Allergies; hb - Home Meds: 14:58 Thiamine Oral [Active]; lisinopril Oral [Active]; Creon Oral [Active]; Pepcid Oral hb [Active]; Folic Acid Oral [Active]; - PMHx: 14:58 ADD/ADHD; etoh abuse; Hypertension; liver "spot"; Pancreatitis; hb - Immunization history:: Adult Immunizations up to date. - Social history:: Smoking status: Patient uses tobacco products, smokes one pack cigarettes per day. - Ebola Screening: : No symptoms or risks identified at this time. ROS: 15:18 Constitutional: Negative for fever, chills, and weight loss, Eyes: Negative for injury, beck pain, redness, and discharge, ENT: Negative for injury, pain, and discharge, Neck: Negative for injury, pain, and swelling, Cardiovascular: Negative for chest pain, palpitations, and edema, Respiratory: Negative for shortness of breath, cough, wheezing, and pleuritic chest pain, Back: Negative for injury and pain, : Negative for injury, bleeding, discharge, and swelling, MS/Extremity: Negative for injury and deformity, Skin: Negative for injury, rash, and discoloration, Neuro: Negative for headache, weakness, numbness, tingling, and seizure, Psych: Negative for depression, anxiety, suicide ideation, homicidal ideation, and hallucinations, Allergy/Immunology: Negative for hives, rash, and allergies, Endocrine: Negative for neck swelling, polydipsia, polyuria, polyphagia, and marked weight changes, Hematologic/Lymphatic: Negative for swollen nodes, abnormal bleeding, and unusual bruising. 15:18 Abdomen/GI: Positive for abdominal pain, diarrhea, black/tarry stool, rectal pain, rectal bleeding. Exam: 15:18 Constitutional: This is a well developed, well nourished patient who is awake, alert, beck and in no acute distress. Head/Face: Normocephalic, atraumatic. Eyes: Pupils equal round and reactive to light, extra-ocular motions intact. Lids and lashes normal. Conjunctiva and sclera are non-icteric and not injected. Cornea within normal limits. Periorbital areas with no swelling, redness, or edema. ENT: Nares patent. No nasal discharge, no septal abnormalities noted. Tympanic membranes are normal and external auditory canals are clear. Oropharynx with no redness, swelling, or masses, exudates, or evidence of obstruction, uvula midline. Mucous membranes moist. Neck: Trachea midline, no thyromegaly or masses palpated, and no cervical lymphadenopathy. Supple, full range of motion without nuchal rigidity, or vertebral point tenderness. No Meningismus. Chest/axilla: Normal chest wall appearance and motion. Nontender with no deformity. No lesions are appreciated. Respiratory: Lungs have equal breath sounds bilaterally, clear to auscultation and percussion. No rales, rhonchi or wheezes noted. No increased work of breathing, no retractions or nasal flaring. Back: No spinal tenderness. No costovertebral tenderness. Full range of motion. Male : Normal genitalia with no discharge or lesions. Skin: Warm, dry with normal turgor. Normal color with no rashes, no lesions, and no evidence of cellulitis. MS/ Extremity: Pulses equal, no cyanosis. Neurovascular intact. Full, normal range of motion. Neuro: Awake and alert, GCS 15, oriented to person, place, time, and situation. Cranial nerves II-XII grossly intact. Motor strength 5/5 in all extremities. Sensory grossly intact. Cerebellar exam normal. Normal gait. Psych: Awake, alert, with orientation to person, place and time. Behavior, mood, and affect are within normal limits. 15:18 Cardiovascular: Rate: tachycardic, Rhythm: regular, Pulses: Pulses are 4+ in bilateral radial, brachial, femoral, popliteal, posterior tibial and and dorsalis pedis arteries.. Heart sounds: normal, normal S1and S2, no S3 or S4, no murmur, no rub, no gallop, Edema: is not appreciated, JVD: is not appreciated. Vital Signs: 14:58 BP 177 / 84; Pulse 124; Resp 16; Temp 97.8; Pulse Ox 100% ; Weight 77.11 kg; Height 5 hb ft. 11 in. (180.34 cm); Pain 8/10; 16:30 BP 164 / 101; Pulse 107; Resp 18; Pulse Ox 99% on R/A; ph 18:09 BP 151 / 78; Pulse 101; Resp 18; Pulse Ox 98% on R/A; ph 19:00 BP 147 / 72; Pulse 99; Resp 18; Temp 97.5; Pulse Ox 99% on R/A; ph 14:58 Body Mass Index 23.71 (77.11 kg, 180.34 cm) hb MDM: 15:00 Patient medically screened. [facility] 15:21 Data reviewed: vital signs, nurses notes, lab test result(s), radiologic studies. [facility] 06/30 15:18 Order name: Basic Metabolic Panel [facility] 06/30 15:18 Order name: CBC with Diff [facility] 06/30 15:18 Order name: Creatinine for Radiology [facility] 06/30 15:18 Order name: Hepatic Function [facility] 06/30 15:18 Order name: Lipase [facility] 06/30 15:22 Order name: UDS [facility] 06/30 15:18 Order name: CT Abd/Pelvis - PO and IV Contrast [facility] 06/30 16:31 Order name: CBC with Automated Diff; Complete Time: 17:08 EDWA 06/30 16:43 Order name: Creatinine (Radiology Only); Complete Time: 17:08 EDWA 06/30 17:06 Order name: Urine Dipstick--Ancillary (enter results) 06/30 17:21 Order name: Urine Drug Screen; Complete Time: 18:10 EDWA 06/30 17:51 Order name: Basic Metabolic Panel; Complete Time: 18:10 EDMS 06/30 17:51 Order name: Liver (Hepatic) Function; Complete Time: 18:10 EDMS 06/30 17:51 Order name: Lipase; Complete Time: 18:10 EDMS 06/30 15:18 Order name: IV Saline Lock; Complete Time: 16:25 [facility] 06/30 15:18 Order name: Labs collected and sent; Complete Time: 16:31 [facility] 06/30 18:19 Order name: CT; Complete Time: 18:48 EDMS Administered Medications: 16:22 Drug: NS 0.9% 1000 ml Route: IV; Rate: 1 bolus; Site: right antecubital; ph 18:19 Follow up: Response: No adverse reaction; IV Status: Completed infusion; IV Intake: ph 1000ml 16:23 Drug: morphine 4 mg Route: IVP; Site: right antecubital; ph 17:00 Follow up: Response: No adverse reaction; Pain is unchanged, physician notified; RASS: ph Alert and Calm (0) 16:23 Drug: Zofran 4 mg Route: IVP; Site: right antecubital; ph 18:13 Follow up: Response: No adverse reaction; Nausea is decreased ph 16:24 Drug: Cipro 400 mg Volume: 200 ml; Route: IVPB; Infused Over: 60 mins; Site: right ph antecubital; 17:30 Follow up: Response: No adverse reaction; IV Status: Completed infusion ph 16:25 Drug: Flagyl 500 mg Volume: 100 ml; Route: IVPB; Rate: 200 ml/hr; Infused Over: 30 ph mins; Site: right antecubital; 17:05 Follow up: Response: No adverse reaction; IV Status: Completed infusion ph 17:15 Drug: morphine 4 mg Route: IVP; Site: left antecubital; ph 18:15 Follow up: Response: No adverse reaction; Pain is unchanged, physician notified; RASS: ph Alert and Calm (0) 18:55 Drug: Aurora 10 mg-325 mg 1 tabs Route: PO; ph 18:57 Follow up: Response: No adverse reaction; Medication administered at discharge.; RASS: ph Alert and Calm (0) 18:56 Drug: Bentyl 20 mg Route: PO; ph 18:57 Follow up: Response: No adverse reaction; Medication administered at discharge. ph Disposition: 06/30/19 18:12 Discharged to Home. Impression: Abdominal tenderness, Gastrointestinal hemorrhage, unspecified - lower stable, Vomiting, Other acute pancreatitis. - Condition is Stable. - Discharge Instructions: Abdominal Pain, Adult, Gastrointestinal Bleeding, Nausea and Vomiting, Adult, Rectal Bleeding, Nausea and Vomiting, Adult, [id number], Abdominal Pain, Adult, [id number], Chronic Pancreatitis. - Prescriptions for Bentyl 20 mg Oral Tablet - take 1 tablet by ORAL route every 6 hours As needed; 20 tablet. Flagyl 500 mg Oral Tablet - take 1 tablet by ORAL route every 6 hours for 7 days; 28 tablet. Pepcid 20 mg Oral Tablet - take 1 tablet by ORAL route every 12 hours for 10 days; 20 tablet. Cipro 500 mg Oral Tablet - take 1 tablet by ORAL route every 12 hours for 7 days; 14 tablet. Tylenol- Codeine #3 300-30 mg Oral Tablet - take 2 tablets by ORAL route every 6 hours As needed; 20 tablet. - Medication Reconciliation Form, Thank You Letter, Antibiotic Education, Prescription Opioid Use form. - Follow up: Private Physician; When: 2 - 3 days; Reason: Recheck today's complaints, Continuance of care, Re-evaluation by your physician. Follow up: Diane Almaraz MD; When: 2 - 3 days; Reason: Recheck today's complaints, Continuance of care, Re-evaluation by your physician. - Problem is new. - Symptoms have improved. Signatures: Dispatcher [employer] EDMS Prateek Lacey MD MD cha Hall, Patricia, RN RN Leslee Fernandez RN RN Corrections: (The following items were deleted from the chart) 18:12 18:12 06/30/2019 18:12 Discharged to Home. Impression: Abdominal tenderness; beck Gastrointestinal hemorrhage, unspecified - lower stable; Vomiting; Other acute pancreatitis. Condition is Stable. Discharge Instructions: Abdominal Pain, Adult, Gastrointestinal Bleeding, Nausea and Vomiting, Adult, Rectal Bleeding, Nausea and Vomiting, Adult, [id number], Abdominal Pain, Adult, [id number]. Prescriptions for Bentyl 20 mg Oral Tablet - take 1 tablet by ORAL route every 6 hours As needed; 20 tablet, Flagyl 500 mg Oral Tablet - take 1 tablet by ORAL route every 6 hours for 7 days; 28 tablet, Pepcid 20 mg Oral Tablet - take 1 tablet by ORAL route every 12 hours for 10 days; 20 tablet, Cipro 500 mg Oral Tablet - take 1 tablet by ORAL route every 12 hours for 7 days; 14 tablet. and Forms are Medication Reconciliation Form, Thank You Letter, Antibiotic Education, Prescription Opioid Use. Follow up: Private Physician; When: 2 - 3 days; Reason: Recheck today's complaints, Continuance of care, Re-evaluation by your physician. Problem is new. Symptoms have improved. [facility] 19:02 18:12 06/30/2019 18:12 Discharged to Home. Impression: Abdominal tenderness; ph Gastrointestinal hemorrhage, unspecified - lower stable; Vomiting; Other acute pancreatitis. Condition is Stable. Discharge Instructions: Abdominal Pain, Adult, Gastrointestinal Bleeding, Nausea and Vomiting, Adult, Rectal Bleeding, Nausea and Vomiting, Adult, [id number], Abdominal Pain, Adult, [id number], Chronic Pancreatitis. Prescriptions for Bentyl 20 mg Oral Tablet - take 1 tablet by ORAL route every 6 hours As needed; 20 tablet, Flagyl 500 mg Oral Tablet - take 1 tablet by ORAL route every 6 hours for 7 days; 28 tablet, Pepcid 20 mg Oral Tablet - take 1 tablet by ORAL route every 12 hours for 10 days; 20 tablet, Cipro 500 mg Oral Tablet - take 1 tablet by ORAL route every 12 hours for 7 days; 14 tablet. and Forms are Medication Reconciliation Form, Thank You Letter, Antibiotic Education, Prescription Opioid Use. Follow up: Private Physician; When: 2 - 3 days; Reason: Recheck today's complaints, Continuance of care, Re-evaluation by your physician. Follow up: Diane Almaraz; When: 2 - 3 days; Reason: Recheck today's complaints, Continuance of care, Re-evaluation by your physician. Problem is new. Symptoms have improved. [facility]
[2019-06-30] MEDS ORDERED: HYDROCODONE/APAP 10/325 TAB ONE (18:52)
[2019-06-30] MEDS ORDERED: DICYCLOMINE HCL 10 MG CAP ONE (18:52)
[2019-06-30 19:16] LABS: Urine Blood 1+ (NEG); Urine Glucose NEGATIVE (NEG); Urine Protein NEGATIVE (NEG)
[2019-06-30 20:07] VITALS: BP 147/72; TEMP 97.5; O2SAT 99
== END 2019-06-30 19:02 | disposition home or self-care (01) ==
LOC: ER 14:52
DX: K92.2 Gastrointestinal hemorrhage, unspecified (principal); K85.80 Other acute pancreatitis without necrosis or infection; R11.10 Vomiting, unspecified; I10 Essential (primary) hypertension; F90.9 Attention-deficit hyperactivity disorder, unspecified type; F17.210 Nicotine dependence, cigarettes, uncomplicated
CPT/HCPCS: 36415; 74177; 80048; 80076; 80307; 81003; 83690; 85025; 96361; 96365; 96368; 96375; 99284; J0744; J2405; J7030; Q9967

== ENCOUNTER 2019-07-15 10:43 | Emergency (ER) | payer SELFPAY ==
--- OUTSIDE RECORDS SUMMARY | 2019-07-15 10:50 | XMS REPORT ---
:1985 [facility] [address] [place] [address] Care Team Providers Name Role Phone DMITRI [...] Value Reference Range Comments LIPASE (BEAKER) (test frwj=779) 257 U/L 8-78 BASIC METABOLIC [id number] 03:05:00 Test Item Value Reference Range Comments SODIUM (BEAKER) (test 136 meq/L 136-145 orjk=698) POTASSIUM (BEAKER) (test 4.5 meq/L 3.5-5.1 Specimen slightly yrhc=802) hemolyzed CHLORIDE (BEAKER) (test 104 meq/L 98-107 afja=031) CO2 (BEAKER) (test 25 meq/L 22-29 mbgp=909) BLOOD UREA NITROGEN 5 mg/dL 7-21 (BEAKER) (test rxvo=089) CREATININE (BEAKER) (test 0.57 mg/dL 0.57-1.25 Specimen slightly fevh=007) hemolyzed GLUCOSE RANDOM (BEAKER) 87 mg/dL 70-105 (test aqnh=142) CALCIUM (BEAKER) (test 8.4 mg/dL 8.4-10.2 yyms=377) EGFR (BEAKER) (test 166 mL/min/1.73 sq m ESTIMATED GFR IS NOT ynjx=0907) ACCURATE CREATININE CLEARANCE IN PREDICTING GLOMERULAR FILTRATION RATE. ESTIMATED GFR IS NOT APPLICABLE FOR DIALYSIS PATIENTS. BASIC METABOLIC [id number] 04:41:00 Test Item Value Reference Range Comments SODIUM (BEAKER) (test 134 meq/L 136-145 pmlm=766) POTASSIUM (BEAKER) (test 3.9 meq/L 3.5-5.1 Specimen slightly cehj=149) hemolyzed CHLORIDE (BEAKER) (test 102 meq/L 98-107 jzzf=220) CO2 (BEAKER) (test 26 meq/L 22-29 hpcz=639) BLOOD UREA NITROGEN 3 mg/dL 7-21 (BEAKER) (test wmul=250) CREATININE (BEAKER) (test 0.50 mg/dL 0.57-1.25 Specimen slightly ogef=111) hemolyzed GLUCOSE RANDOM (BEAKER) 95 mg/dL 70-105 (test lkag=692) CALCIUM (BEAKER) (test 7.9 mg/dL 8.4-10.2 ueky=925) EGFR (BEAKER) (test 193 mL/min/1.73 sq m ESTIMATED GFR IS NOT kmmf=2817) ACCURATE CREATININE CLEARANCE IN PREDICTING GLOMERULAR FILTRATION RATE. ESTIMATED GFR IS NOT APPLICABLE FOR DIALYSIS PATIENTS. [id number] 04:31:00 Test Item Value Reference Range Comments LIPASE (BEAKER) (test lljo=592) 334 U/L 8-78 TROPONIN [id number] 03:00:00 Test Item Value Reference Range Comments TROPONIN I (BEAKER) (test ryma=101) < ng/mL 0.00-0.03 Troponin I (TnI) levels [...] failure, acidosis, acute neurological disease, and persistent tachyarrhythmia.[id number] 02:54:00 Test Item Value Reference Range Comments MAGNESIUM (BEAKER) (test 1.9 mg/dL 1.6-2.6 Specimen slightly hemolyzed ijqz=810) BASIC METABOLIC [id number] 02:54:00 Test Item Value Reference Range Comments SODIUM (BEAKER) (test 136 meq/L 136-145 uzkn=861) POTASSIUM (BEAKER) (test 3.8 meq/L 3.5-5.1 Specimen slightly dhsg=990) hemolyzed CHLORIDE (BEAKER) (test 100 meq/L 98-107 icud=856) CO2 (BEAKER) (test 28 meq/L 22-29 lpvz=779) BLOOD UREA NITROGEN 3 mg/dL 7-21 (BEAKER) (test ujqo=556) CREATININE (BEAKER) (test 0.56 mg/dL 0.57-1.25 Specimen slightly bcto=974) hemolyzed GLUCOSE RANDOM (BEAKER) 111 mg/dL 70-105 (test evxx=920) CALCIUM (BEAKER) (test 8.3 mg/dL 8.4-10.2 kqmc=562) EGFR (BEAKER) (test 169 mL/min/1.73 sq m ESTIMATED GFR IS NOT aroy=5576) ACCURATE CREATININE CLEARANCE IN PREDICTING GLOMERULAR FILTRATION RATE. ESTIMATED GFR IS NOT APPLICABLE FOR DIALYSIS PATIENTS. [id number] 02:54:00 Test Item Value Reference Range Comments LIPASE (BEAKER) (test hycw=455) 755 U/L 8-78 CBC W/PLT COUNT & AUTO [id number] 02:33:00 Test Item Value Reference Range Comments WHITE BLOOD CELL COUNT (BEAKER) (test qtnk=326) 5.7 K/ L 3.5-10.5 RED BLOOD CELL COUNT (BEAKER) (test ropf=378) 3.90 M/ L 4.63-6.08 HEMOGLOBIN (BEAKER) (test apej=993) 12.0 GM/DL 13.7-17.5 HEMATOCRIT (BEAKER) (test cqob=033) 36.5 % 40.1-51.0 MEAN CORPUSCULAR VOLUME (BEAKER) (test jksu=891) 93.6 fL 79.0-92.2 MEAN CORPUSCULAR HEMOGLOBIN (BEAKER) (test 30.8 pg 25.7-32.2 emej=945) MEAN CORPUSCULAR HEMOGLOBIN CONC (BEAKER) (test 32.9 GM/DL 32.3-36.5 daej=873) RED CELL DISTRIBUTION WIDTH (BEAKER) (test 13.6 % 11.6-14.4 euuo=473) PLATELET COUNT (BEAKER) (test vfqc=632) 155 K/CU MM 150-450 MEAN PLATELET VOLUME (BEAKER) (test hkbw=520) 9.4 fL 9.4-12.4 NUCLEATED RED BLOOD CELLS (BEAKER) (test 0 /100 WBC 0-0 hmqb=364) NEUTROPHILS RELATIVE PERCENT (BEAKER) (test 70 % fexi=165) LYMPHOCYTES RELATIVE PERCENT (BEAKER) (test 19 % ztvn=870) MONOCYTES RELATIVE PERCENT (BEAKER) (test 8 % tahr=445) EOSINOPHILS RELATIVE PERCENT (BEAKER) (test 2 % vwlq=373) BASOPHILS RELATIVE PERCENT (BEAKER) (test 1 % ueka=726) NEUTROPHILS ABSOLUTE COUNT (BEAKER) (test 4.03 K/ L 1.78-5.38 mzki=318) LYMPHOCYTES ABSOLUTE COUNT (BEAKER) (test 1.07 K/ L 1.32-3.57 txsb=676) MONOCYTES ABSOLUTE COUNT (BEAKER) (test 0.45 K/ L 0.30-0.82 budy=724) EOSINOPHILS ABSOLUTE COUNT (BEAKER) (test 0.12 K/ L 0.04-0.54 ozzi=537) BASOPHILS ABSOLUTE COUNT (BEAKER) (test 0.05 K/ L 0.01-0.08 gled=922) IMMATURE GRANULOCYTES-RELATIVE PERCENT (BEAKER) 0 % 0-1 (test hutr=4159) RAD, CHEST, 1 VIEW, NON [id number] 02:26:00Reason for exam:->pleuritic chest painShould this be [...] To [place] MDReport Verified Date/Time: 03/22/2019 02:26:18 [id number] 08:35:00 Test Item Value Reference Range Comments MAGNESIUM (BEAKER) (test 1.4 mg/dL 1.6-2.6 Specimen slightly hemolyzed fdyo=250) BASIC METABOLIC [id number] 08:35:00 Test Item Value Reference Range Comments SODIUM (BEAKER) (test 138 meq/L 136-145 rrek=786) POTASSIUM (BEAKER) (test 3.7 meq/L 3.5-5.1 Specimen slightly amxo=465) hemolyzed CHLORIDE (BEAKER) (test 102 meq/L 98-107 otpk=461) CO2 (BEAKER) (test 23 meq/L 22-29 pkdq=847) BLOOD UREA NITROGEN 4 mg/dL 7-21 (BEAKER) (test lsby=859) CREATININE (BEAKER) (test 0.48 mg/dL 0.57-1.25 Specimen slightly ijoj=034) hemolyzed GLUCOSE RANDOM (BEAKER) 53 mg/dL 70-105 (test fvyj=768) CALCIUM (BEAKER) (test 8.1 mg/dL 8.4-10.2 eksb=094) EGFR (BEAKER) (test 202 mL/min/1.73 sq m ESTIMATED GFR IS NOT thjk=1860) ACCURATE CREATININE CLEARANCE IN PREDICTING GLOMERULAR FILTRATION RATE. ESTIMATED GFR IS NOT APPLICABLE FOR DIALYSIS PATIENTS. HEPATIC FUNCTION [id number] 08:35:00 Test Item Value Reference Range Comments TOTAL PROTEIN (BEAKER) (test 6.2 gm/dL 6.0-8.3 Specimen slightly hemolyzed psmm=714) ALBUMIN (BEAKER) (test 2.7 g/dL 3.5-5.0 Specimen slightly hemolyzed ugkr=7160) BILIRUBIN TOTAL (BEAKER) (test 0.5 mg/dL 0.2-1.2 Specimen slightly hemolyzed cxgl=961) BILIRUBIN DIRECT (BEAKER) (test 0.3 mg/dL 0.1-0.5 Specimen slightly hemolyzed lzby=405) ALKALINE PHOSPHATASE (BEAKER) 151 U/L 40-150 (test wlpw=986) AST (SGOT) (BEAKER) (test 64 U/L 5-34 Specimen slightly hemolyzed epxm=672) ALT (SGPT) (BEAKER) (test 21 U/L 6-55 Specimen slightly hemolyzed ekhv=620) [id number] 08:35:00 Test Item Value Reference Range Comments LIPASE (BEAKER) (test toyp=043) 242 U/L 8-78 CBC W/PLT COUNT & AUTO [id number] 06:25:00 Test Item Value Reference Range Comments WHITE BLOOD CELL COUNT (BEAKER) (test pyyv=232) 4.2 K/ L 3.5-10.5 RED BLOOD CELL COUNT (BEAKER) (test mdbf=705) 4.14 M/ L 4.63-6.08 HEMOGLOBIN (BEAKER) (test tvtw=950) 12.7 GM/DL 13.7-17.5 HEMATOCRIT (BEAKER) (test ufiv=689) 39.8 % 40.1-51.0 MEAN CORPUSCULAR VOLUME (BEAKER) (test zcrq=124) 96.1 fL 79.0-92.2 MEAN CORPUSCULAR HEMOGLOBIN (BEAKER) (test 30.7 pg 25.7-32.2 zpmx=795) MEAN CORPUSCULAR HEMOGLOBIN CONC (BEAKER) (test 31.9 GM/DL 32.3-36.5 dvjm=711) RED CELL DISTRIBUTION WIDTH (BEAKER) (test 13.5 % 11.6-14.4 kabn=036) PLATELET COUNT (BEAKER) (test nepu=336) 186 K/CU MM 150-450 MEAN PLATELET VOLUME (BEAKER) (test qvzi=519) 10.9 fL 9.4-12.4 NUCLEATED RED BLOOD CELLS (BEAKER) (test 0 /100 WBC 0-0 jeuv=473) NEUTROPHILS RELATIVE PERCENT (BEAKER) (test 55 % bngk=214) LYMPHOCYTES RELATIVE PERCENT (BEAKER) (test 31 % phag=435) MONOCYTES RELATIVE PERCENT (BEAKER) (test 8 % fqnv=975) EOSINOPHILS RELATIVE PERCENT (BEAKER) (test 5 % zezz=600) BASOPHILS RELATIVE PERCENT (BEAKER) (test 1 % aojg=794) NEUTROPHILS ABSOLUTE COUNT (BEAKER) (test 2.28 K/ L 1.78-5.38 lizx=996) LYMPHOCYTES ABSOLUTE COUNT (BEAKER) (test 1.28 K/ L 1.32-3.57 oioe=001) MONOCYTES ABSOLUTE COUNT (BEAKER) (test 0.35 K/ L 0.30-0.82 tmvs=029) EOSINOPHILS ABSOLUTE COUNT (BEAKER) (test 0.21 K/ L 0.04-0.54 wabu=845) BASOPHILS ABSOLUTE COUNT (BEAKER) (test 0.05 K/ L 0.01-0.08 rzam=342) IMMATURE GRANULOCYTES-RELATIVE PERCENT (BEAKER) 0 % 0-1 (test wdmu=3439) [id number] 07:42:00 Test Item Value Reference Range Comments MAGNESIUM (BEAKER) (test yqff=427) 1.5 mg/dL 1.6-2.6 BASIC METABOLIC [id number] 07:42:00 Test Item Value Reference Range Comments SODIUM (BEAKER) (test 140 meq/L 136-145 pbxf=057) POTASSIUM (BEAKER) (test 3.3 meq/L 3.5-5.1 haqb=337) CHLORIDE (BEAKER) (test 106 meq/L 98-107 knhk=487) CO2 (BEAKER) (test 27 meq/L 22-29 gete=651) BLOOD UREA NITROGEN 6 mg/dL 7-21 (BEAKER) (test enlb=995) CREATININE (BEAKER) (test 0.53 mg/dL 0.57-1.25 ubte=180) GLUCOSE RANDOM (BEAKER) 81 mg/dL 70-105 (test vath=489) CALCIUM (BEAKER) (test 8.2 mg/dL 8.4-10.2 spyo=096) EGFR (BEAKER) (test 180 mL/min/1.73 sq m ESTIMATED GFR IS NOT rowd=8285) ACCURATE CREATININE CLEARANCE IN PREDICTING GLOMERULAR FILTRATION RATE. ESTIMATED GFR IS NOT APPLICABLE FOR DIALYSIS PATIENTS. LIPID [id number] 07:42:00 Test Item Value Reference Range Comments TRIGLYCERIDES (BEAKER) (test dsae=094) 63 mg/dL CHOLESTEROL (BEAKER) (test mixl=376) 101 mg/dL HDL CHOLESTEROL (BEAKER) (test ruxi=476) 20 mg/dL LDL CHOLESTEROL CALCULATED (BEAKER) (test 68 mg/dL gpaq=084) Triglyceride Reference Range: Low Risk <150 Borderline 150- 199 High Risk 200-499 Very High Risk >=500Cholesterol Reference Range: Low Risk <200 Borderline 200-239 High Risk > 240HDL Cholesterol Reference Range: Low Risk >=60 High Risk <40LDL Cholesterol Reference Range: Optimal <100 Near Optimal 100-129 Borderline 130-159 High 160-189 Very High >=190HEPATIC FUNCTION [id number] 07:42:00 Test Item Value Reference Range Comments TOTAL PROTEIN (BEAKER) (test wplq=724) 6.1 gm/dL 6.0-8.3 ALBUMIN (BEAKER) (test hyxc=3072) 2.7 g/dL 3.5-5.0 BILIRUBIN TOTAL (BEAKER) (test bpnx=148) 0.6 mg/dL 0.2-1.2 BILIRUBIN DIRECT (BEAKER) (test tmoj=821) 0.4 mg/dL 0.1-0.5 ALKALINE PHOSPHATASE (BEAKER) (test csmu=760) 157 U/L 40-150 AST (SGOT) (BEAKER) (test slyl=117) 58 U/L 5-34 ALT (SGPT) (BEAKER) (test ygam=535) 21 U/L 6-55 CBC W/PLT COUNT & AUTO [id number] 05:47:00 Test Item Value Reference Range Comments WHITE BLOOD CELL COUNT (BEAKER) (test iarx=479) 4.3 K/ L 3.5-10.5 RED BLOOD CELL COUNT (BEAKER) (test tgry=948) 3.66 M/ L 4.63-6.08 HEMOGLOBIN (BEAKER) (test yelk=292) 11.4 GM/DL 13.7-17.5 HEMATOCRIT (BEAKER) (test tffm=403) 35.8 % 40.1-51.0 MEAN CORPUSCULAR VOLUME (BEAKER) (test yjpd=035) 97.8 fL 79.0-92.2 MEAN CORPUSCULAR HEMOGLOBIN (BEAKER) (test 31.1 pg 25.7-32.2 ptht=596) MEAN CORPUSCULAR HEMOGLOBIN CONC (BEAKER) (test 31.8 GM/DL 32.3-36.5 lukt=007) RED CELL DISTRIBUTION WIDTH (BEAKER) (test 14.2 % 11.6-14.4 hxwx=575) PLATELET COUNT (BEAKER) (test xsri=892) 170 K/CU MM 150-450 MEAN PLATELET VOLUME (BEAKER) (test cbwc=312) 9.9 fL 9.4-12.4 NUCLEATED RED BLOOD CELLS (BEAKER) (test 0 /100 WBC 0-0 aieu=189) NEUTROPHILS RELATIVE PERCENT (BEAKER) (test 55 % qtcy=114) LYMPHOCYTES RELATIVE PERCENT (BEAKER) (test 30 % vrhy=958) MONOCYTES RELATIVE PERCENT (BEAKER) (test 10 % pdtj=104) EOSINOPHILS RELATIVE PERCENT (BEAKER) (test 4 % ojhr=454) BASOPHILS RELATIVE PERCENT (BEAKER) (test 1 % yuwx=940) NEUTROPHILS ABSOLUTE COUNT (BEAKER) (test 2.36 K/ L 1.78-5.38 uqcv=312) LYMPHOCYTES ABSOLUTE COUNT (BEAKER) (test 1.30 K/ L 1.32-3.57 euxm=329) MONOCYTES ABSOLUTE COUNT (BEAKER) (test 0.41 K/ L 0.30-0.82 owtm=167) EOSINOPHILS ABSOLUTE COUNT (BEAKER) (test 0.18 K/ L 0.04-0.54 nrpx=482) BASOPHILS ABSOLUTE COUNT (BEAKER) (test 0.03 K/ L 0.01-0.08 icgg=673) IMMATURE GRANULOCYTES-RELATIVE PERCENT (BEAKER) 1 % 0-1 (test epsz=5914) RAPID DRUG SCREEN, [id number] 23:57:00 Test Item Value Reference Range Comments BARBITURATE URINE (BEAKER) (test zczd=743) Negative Negative BENZODIAZEPINE SCREEN URINE (BEAKER) (test Positive Negative wdiw=222) COCAINE (METAB.) SCREEN (BEAKER) (test arhr=6739) Negative Negative METHADONE SCREEN (BEAKER) (test pxka=7322) Negative Negative OPIATE SCREEN URINE (BEAKER) (test xboa=352) Negative Negative CANNABINOID SCREEN URINE (BEAKER) (test yatx=284) Positive Negative AMPH/METHAMPH SCREEN (BEAKER) (test enyp=2435) Positive Negative PHENCYCLIDINE SCREEN URINE (BEAKER) (test cbty=930) Negative Negative DRUG CUTOFF CONC.Cocaine 300 ng/mL Cannabinoid 50 ng/mLBenzodiazepine 200 ng/mLBarbiturate 200 ng/ mLPhencyclidine 25 ng/mLOpiate 300 ng/mLMethadone 300 ng/mLAmphetamine/ 1000 ng/mL MethamphetamineThis assay provides an unconfirmed qualitative test result for the clinical management of patients in emergency situations. Chain of custody not maintained. Some mtnk-cvb-lceupbs medications, as well as adulterants, may cause inaccurate results. Clinical correlation should be applied. A more comprehensivedrug screen or confirmation of a detected drug may be performed upon request.BASIC METABOLIC [id number] 23:23:00 Test Item Value Reference Range Comments SODIUM (BEAKER) (test 139 meq/L 136-145 gubz=155) POTASSIUM (BEAKER) (test 3.1 meq/L 3.5-5.1 evuw=825) CHLORIDE (BEAKER) (test 103 meq/L 98-107 xydi=844) CO2 (BEAKER) (test 28 meq/L 22-29 pfxj=526) BLOOD UREA NITROGEN 8 mg/dL 7-21 (BEAKER) (test qhuv=495) CREATININE (BEAKER) (test 0.60 mg/dL 0.57-1.25 lfvp=450) GLUCOSE RANDOM (BEAKER) 92 mg/dL 70-105 (test ahxn=622) CALCIUM (BEAKER) (test 8.6 mg/dL 8.4-10.2 zwne=970) EGFR (BEAKER) (test 156 mL/min/1.73 sq m ESTIMATED GFR IS NOT ypcq=0251) ACCURATE CREATININE CLEARANCE IN PREDICTING GLOMERULAR FILTRATION RATE. ESTIMATED GFR IS NOT APPLICABLE FOR DIALYSIS PATIENTS. HEPATIC FUNCTION [id number] 23:23:00 Test Item Value Reference Range Comments TOTAL PROTEIN (BEAKER) (test vdze=294) 7.1 gm/dL 6.0-8.3 ALBUMIN (BEAKER) (test ikpi=6229) 3.2 g/dL 3.5-5.0 BILIRUBIN TOTAL (BEAKER) (test ahfa=512) 0.5 mg/dL 0.2-1.2 BILIRUBIN DIRECT (BEAKER) (test xttu=699) 0.4 mg/dL 0.1-0.5 ALKALINE PHOSPHATASE (BEAKER) (test rizx=429) 187 U/L 40-150 AST (SGOT) (BEAKER) (test vwkw=164) 62 U/L 5-34 ALT (SGPT) (BEAKER) (test ddpk=786) 24 U/L 6-55 [id number] 22:57:00 Test Item Value Reference Range Comments LIPASE (BEAKER) (test wcxc=137) 957 U/L 8-78 [id number] 22:57:00 Test Item Value Reference Range Comments AMYLASE (BEAKER) (test tdcv=202) 391 U/L 25-125 [id number] 22:56:00 Test Item Value Reference Range Comments PROTIME (BEAKER) (test nehm=822) 15.8 seconds 11.9-14.2 INR (BEAKER) (test rbsy=548) 1.3 <=5.9 PARTIAL THROMBOPLASTIN TIME (BEAKER) (test 30.9 seconds 22.5-36.0 rhhg=820) Effective 12/11/2018: PT Reference Range ChangeNew: 11.9-14.2 Previous: 11.7- 14.7RECOMMENDED COUMADIN/WARFARIN INR THERAPY RANGESSTANDARD DOSE: 2.0-3.0 Includes: PROPHYLAXIS for venous thrombosis, systemic embolization; TREATMENT for venous thrombosis and/or pulmonary embolus.HIGH RISK: Target INR is2.5-3.5 for patients wiht mechanical heart valves.CBC W/PLT COUNT & AUTO [id number] 22:41:00 Test Item Value Reference Range Comments WHITE BLOOD CELL COUNT (BEAKER) (test vxsn=748) 6.4 K/ L 3.5-10.5 RED BLOOD CELL COUNT (BEAKER) (test rnjh=473) 3.99 M/ L 4.63-6.08 HEMOGLOBIN (BEAKER) (test yjtn=722) 12.6 GM/DL 13.7-17.5 HEMATOCRIT (BEAKER) (test uwbg=380) 39.0 % 40.1-51.0 MEAN CORPUSCULAR VOLUME (BEAKER) (test rikg=659) 97.7 fL 79.0-92.2 MEAN CORPUSCULAR HEMOGLOBIN (BEAKER) (test 31.6 pg 25.7-32.2 spyi=098) MEAN CORPUSCULAR HEMOGLOBIN CONC (BEAKER) (test 32.3 GM/DL 32.3-36.5 evug=144) RED CELL DISTRIBUTION WIDTH (BEAKER) (test 14.1 % 11.6-14.4 mohx=970) PLATELET COUNT (BEAKER) (test hiwo=955) 187 K/CU MM 150-450 MEAN PLATELET VOLUME (BEAKER) (test drvj=796) 9.3 fL 9.4-12.4 NUCLEATED RED BLOOD CELLS (BEAKER) (test 0 /100 WBC 0-0 syag=456) NEUTROPHILS RELATIVE PERCENT (BEAKER) (test 68 % dggm=851) LYMPHOCYTES RELATIVE PERCENT (BEAKER) (test 19 % jjem=688) MONOCYTES RELATIVE PERCENT (BEAKER) (test 10 % bndm=591) EOSINOPHILS RELATIVE PERCENT (BEAKER) (test 2 % lbtm=526) BASOPHILS RELATIVE PERCENT (BEAKER) (test 1 % gfng=852) NEUTROPHILS ABSOLUTE COUNT (BEAKER) (test 4.31 K/ L 1.78-5.38 uspn=686) LYMPHOCYTES ABSOLUTE COUNT (BEAKER) (test 1.21 K/ L 1.32-3.57 eyfo=259) MONOCYTES ABSOLUTE COUNT (BEAKER) (test 0.65 K/ L 0.30-0.82 jvam=980) EOSINOPHILS ABSOLUTE COUNT (BEAKER) (test 0.14 K/ L 0.04-0.54 opao=516) BASOPHILS ABSOLUTE COUNT (BEAKER) (test 0.04 K/ L 0.01-0.08 joph=303) IMMATURE GRANULOCYTES-RELATIVE PERCENT (BEAKER) 0 % 0-1 (test rnwi=7369) COMPREHENSIVE METABOLIC [id number] 06:44:00 Test Item Value Reference Range Comments TOTAL PROTEIN (BEAKER) 6.2 gm/dL 6.0-8.3 (test faii=673) ALBUMIN (BEAKER) (test 2.7 g/dL 3.5-5.0 rtzn=6788) ALKALINE PHOSPHATASE 195 U/L 40-150 (BEAKER) (test fblj=370) BILIRUBIN TOTAL (BEAKER) 0.7 mg/dL 0.2-1.2 (test ihcj=156) SODIUM (BEAKER) (test 138 meq/L 136-145 rvsl=479) POTASSIUM (BEAKER) (test 3.6 meq/L 3.5-5.1 fqsf=180) CHLORIDE (BEAKER) (test 102 meq/L 98-107 ioax=673) CO2 (BEAKER) (test 28 meq/L 22-29 jdsd=390) BLOOD UREA NITROGEN 2 mg/dL 7-21 (BEAKER) (test otgc=568) CREATININE (BEAKER) (test 0.52 mg/dL 0.57-1.25 rxxd=450) GLUCOSE RANDOM (BEAKER) 103 mg/dL 70-105 (test hvlq=150) CALCIUM (BEAKER) (test 8.5 mg/dL 8.4-10.2 mvlf=858) AST (SGOT) (BEAKER) (test 67 U/L 5-34 qhta=853) ALT (SGPT) (BEAKER) (test 31 U/L 6-55 rwok=371) EGFR (BEAKER) (test 184 mL/min/1.73 sq ESTIMATED GFR IS NOT jvmx=5338) m ACCURATE CREATININE CLEARANCE IN PREDICTING GLOMERULAR FILTRATION RATE. ESTIMATED GFR IS NOT APPLICABLE FOR DIALYSIS PATIENTS. CBC W/PLT COUNT & AUTO [id number] 06:09:00 Test Item Value Reference Range Comments WHITE BLOOD CELL COUNT (BEAKER) (test oums=683) 4.0 K/ L 3.5-10.5 RED BLOOD CELL COUNT (BEAKER) (test ldnu=329) 3.23 M/ L 4.63-6.08 HEMOGLOBIN (BEAKER) (test mcqm=169) 10.6 GM/DL 13.7-17.5 HEMATOCRIT (BEAKER) (test yyqg=252) 33.2 % 40.1-51.0 MEAN CORPUSCULAR VOLUME (BEAKER) (test rfpk=959) 102.8 fL 79.0-92.2 MEAN CORPUSCULAR HEMOGLOBIN (BEAKER) (test 32.8 pg 25.7-32.2 lvcs=131) MEAN CORPUSCULAR HEMOGLOBIN CONC (BEAKER) (test 31.9 GM/DL 32.3-36.5 fgnu=286) RED CELL DISTRIBUTION WIDTH (BEAKER) (test 15.5 % 11.6-14.4 grcu=851) PLATELET COUNT (BEAKER) (test diav=093) 226 K/CU MM 150-450 MEAN PLATELET VOLUME (BEAKER) (test xotj=639) 10.4 fL 9.4-12.4 NUCLEATED RED BLOOD CELLS (BEAKER) (test 0 /100 WBC 0-0 rxqp=367) NEUTROPHILS RELATIVE PERCENT (BEAKER) (test 54 % zzev=204) LYMPHOCYTES RELATIVE PERCENT (BEAKER) (test 29 % gmql=982) MONOCYTES RELATIVE PERCENT (BEAKER) (test 9 % sbyh=355) EOSINOPHILS RELATIVE PERCENT (BEAKER) (test 6 % tfuh=411) BASOPHILS RELATIVE PERCENT (BEAKER) (test 1 % tyhn=157) NEUTROPHILS ABSOLUTE COUNT (BEAKER) (test 2.17 K/ L 1.78-5.38 isyx=902) LYMPHOCYTES ABSOLUTE COUNT (BEAKER) (test 1.18 K/ L 1.32-3.57 iejk=376) MONOCYTES ABSOLUTE COUNT (BEAKER) (test 0.37 K/ L 0.30-0.82 ghwo=573) EOSINOPHILS ABSOLUTE COUNT (BEAKER) (test 0.25 K/ L 0.04-0.54 yoiv=084) BASOPHILS ABSOLUTE COUNT (BEAKER) (test 0.04 K/ L 0.01-0.08 hxdi=529) IMMATURE GRANULOCYTES-RELATIVE PERCENT (BEAKER) 0 % 0-1 (test phmm=4563) COMPREHENSIVE METABOLIC [id number] 07:17:00 Test Item Value Reference Range Comments TOTAL PROTEIN (BEAKER) 7.3 gm/dL 6.0-8.3 (test osid=178) ALBUMIN (BEAKER) (test 3.2 g/dL 3.5-5.0 xgdi=6092) ALKALINE PHOSPHATASE 235 U/L 40-150 (BEAKER) (test pfiz=786) BILIRUBIN TOTAL (BEAKER) 0.9 mg/dL 0.2-1.2 (test yzxb=090) SODIUM (BEAKER) (test 135 meq/L 136-145 pyci=539) POTASSIUM (BEAKER) (test 3.6 meq/L 3.5-5.1 fakc=472) CHLORIDE (BEAKER) (test 101 meq/L 98-107 oics=003) CO2 (BEAKER) (test 29 meq/L 22-29 opau=250) BLOOD UREA NITROGEN < mg/dL 7-21 (BEAKER) (test iyzy=007) CREATININE (BEAKER) (test 0.56 mg/dL 0.57-1.25 btbc=020) GLUCOSE RANDOM (BEAKER) 87 mg/dL 70-105 (test wvmd=595) CALCIUM (BEAKER) (test 8.6 mg/dL 8.4-10.2 usgy=286) AST (SGOT) (BEAKER) (test 96 U/L 5-34 pult=530) ALT (SGPT) (BEAKER) (test 40 U/L 6-55 keal=790) EGFR (BEAKER) (test 169 mL/min/1.73 sq ESTIMATED GFR IS NOT sbwm=2559) m ACCURATE CREATININE CLEARANCE IN PREDICTING GLOMERULAR FILTRATION RATE. ESTIMATED GFR IS NOT APPLICABLE FOR DIALYSIS PATIENTS. CBC W/PLT COUNT & AUTO [id number] 06:05:00 Test Item Value Reference Range Comments WHITE BLOOD CELL COUNT (BEAKER) (test rsfm=301) 5.1 K/ L 3.5-10.5 RED BLOOD CELL COUNT (BEAKER) (test ufal=768) 3.60 M/ L 4.63-6.08 HEMOGLOBIN (BEAKER) (test rfvd=431) 11.7 GM/DL 13.7-17.5 HEMATOCRIT (BEAKER) (test ncis=916) 37.6 % 40.1-51.0 MEAN CORPUSCULAR VOLUME (BEAKER) (test jvcl=794) 104.4 fL 79.0-92.2 MEAN CORPUSCULAR HEMOGLOBIN (BEAKER) (test 32.5 pg 25.7-32.2 vaso=344) MEAN CORPUSCULAR HEMOGLOBIN CONC (BEAKER) (test 31.1 GM/DL 32.3-36.5 gvrk=893) RED CELL DISTRIBUTION WIDTH (BEAKER) (test 15.5 % 11.6-14.4 lzhe=815) PLATELET COUNT (BEAKER) (test hdys=715) 250 K/CU MM 150-450 MEAN PLATELET VOLUME (BEAKER) (test qmcs=670) 10.1 fL 9.4-12.4 NUCLEATED RED BLOOD CELLS (BEAKER) (test 0 /100 WBC 0-0 hfyp=296) NEUTROPHILS RELATIVE PERCENT (BEAKER) (test 61 % runo=829) LYMPHOCYTES RELATIVE PERCENT (BEAKER) (test 25 % akng=067) MONOCYTES RELATIVE PERCENT (BEAKER) (test 8 % usjs=739) EOSINOPHILS RELATIVE PERCENT (BEAKER) (test 5 % itsz=296) BASOPHILS RELATIVE PERCENT (BEAKER) (test 1 % mfwi=866) NEUTROPHILS ABSOLUTE COUNT (BEAKER) (test 3.09 K/ L 1.78-5.38 rmoa=279) LYMPHOCYTES ABSOLUTE COUNT (BEAKER) (test 1.28 K/ L 1.32-3.57 irin=292) MONOCYTES ABSOLUTE COUNT (BEAKER) (test 0.39 K/ L 0.30-0.82 iyho=295) EOSINOPHILS ABSOLUTE COUNT (BEAKER) (test 0.25 K/ L 0.04-0.54 jsrz=273) BASOPHILS ABSOLUTE COUNT (BEAKER) (test 0.05 K/ L 0.01-0.08 dqww=154) IMMATURE GRANULOCYTES-RELATIVE PERCENT (BEAKER) 0 % 0-1 (test cwpx=2902) [id number] 07:51:00 Test Item Value Reference Range Comments MAGNESIUM (BEAKER) (test ymvs=941) 1.7 mg/dL 1.6-2.6 COMPREHENSIVE METABOLIC [id number] 06:19:00 Test Item Value Reference Range Comments TOTAL PROTEIN (BEAKER) 6.1 gm/dL 6.0-8.3 (test kepb=732) ALBUMIN (BEAKER) (test 2.7 g/dL 3.5-5.0 ziaz=7782) ALKALINE PHOSPHATASE 214 U/L 40-150 (BEAKER) (test iiva=937) BILIRUBIN TOTAL (BEAKER) 0.9 mg/dL 0.2-1.2 (test zzne=701) SODIUM (BEAKER) (test 139 meq/L 136-145 zian=986) POTASSIUM (BEAKER) (test 4.2 meq/L 3.5-5.1 guwk=589) CHLORIDE (BEAKER) (test 110 meq/L 98-107 ghfg=553) CO2 (BEAKER) (test 24 meq/L 22-29 kuex=188) BLOOD UREA NITROGEN < mg/dL 7-21 (BEAKER) (test dqcl=453) CREATININE (BEAKER) (test 0.50 mg/dL 0.57-1.25 mdwi=843) GLUCOSE RANDOM (BEAKER) 77 mg/dL 70-105 (test tvng=334) CALCIUM (BEAKER) (test 7.7 mg/dL 8.4-10.2 iegt=727) AST (SGOT) (BEAKER) (test 96 U/L 5-34 qfrh=358) ALT (SGPT) (BEAKER) (test 37 U/L 6-55 vjbk=232) EGFR (BEAKER) (test 193 mL/min/1.73 sq ESTIMATED GFR IS NOT nzka=5219) m ACCURATE CREATININE CLEARANCE IN PREDICTING GLOMERULAR FILTRATION RATE. ESTIMATED GFR IS NOT APPLICABLE FOR DIALYSIS PATIENTS. CBC W/PLT COUNT & AUTO [id number] 05:15:00 Test Item Value Reference Range Comments WHITE BLOOD CELL COUNT (BEAKER) (test fwsl=873) 4.8 K/ L 3.5-10.5 RED BLOOD CELL COUNT (BEAKER) (test geql=121) 3.25 M/ L 4.63-6.08 HEMOGLOBIN (BEAKER) (test pqbb=841) 10.7 GM/DL 13.7-17.5 HEMATOCRIT (BEAKER) (test rsij=275) 34.0 % 40.1-51.0 MEAN CORPUSCULAR VOLUME (BEAKER) (test yaeq=958) 104.6 fL 79.0-92.2 MEAN CORPUSCULAR HEMOGLOBIN (BEAKER) (test 32.9 pg 25.7-32.2 qsoa=371) MEAN CORPUSCULAR HEMOGLOBIN CONC (BEAKER) (test 31.5 GM/DL 32.3-36.5 slze=241) RED CELL DISTRIBUTION WIDTH (BEAKER) (test 15.5 % 11.6-14.4 bekx=295) PLATELET COUNT (BEAKER) (test bivl=053) 219 K/CU MM 150-450 MEAN PLATELET VOLUME (BEAKER) (test kcdg=548) 10.2 fL 9.4-12.4 NUCLEATED RED BLOOD CELLS (BEAKER) (test 0 /100 WBC 0-0 qlmc=407) NEUTROPHILS RELATIVE PERCENT (BEAKER) (test 56 % nhqy=495) LYMPHOCYTES RELATIVE PERCENT (BEAKER) (test 29 % vdsk=785) MONOCYTES RELATIVE PERCENT (BEAKER) (test 8 % tdvm=539) EOSINOPHILS RELATIVE PERCENT (BEAKER) (test 5 % faaz=013) BASOPHILS RELATIVE PERCENT (BEAKER) (test 1 % gyyb=243) NEUTROPHILS ABSOLUTE COUNT (BEAKER) (test 2.69 K/ L 1.78-5.38 zgrl=953) LYMPHOCYTES ABSOLUTE COUNT (BEAKER) (test 1.40 K/ L 1.32-3.57 dgfn=929) MONOCYTES ABSOLUTE COUNT (BEAKER) (test 0.37 K/ L 0.30-0.82 yfli=999) EOSINOPHILS ABSOLUTE COUNT (BEAKER) (test 0.25 K/ L 0.04-0.54 milx=078) BASOPHILS ABSOLUTE COUNT (BEAKER) (test 0.05 K/ L 0.01-0.08 ynqu=137) IMMATURE GRANULOCYTES-RELATIVE PERCENT (BEAKER) 0 % 0-1 (test atld=3182) COMPREHENSIVE METABOLIC [id number] 09:35:00 Test Item Value Reference Range Comments TOTAL PROTEIN (BEAKER) 6.4 gm/dL 6.0-8.3 Specimen slightly (test whoz=124) hemolyzed ALBUMIN (BEAKER) (test 2.8 g/dL 3.5-5.0 Specimen slightly nraj=7064) hemolyzed ALKALINE PHOSPHATASE 214 U/L 40-150 (BEAKER) (test zbth=806) BILIRUBIN TOTAL (BEAKER) 1.0 mg/dL 0.2-1.2 Specimen slightly (test hzmz=040) hemolyzed SODIUM (BEAKER) (test 136 meq/L 136-145 iigy=961) POTASSIUM (BEAKER) (test 4.2 meq/L 3.5-5.1 Specimen slightly lzse=926) hemolyzed CHLORIDE (BEAKER) (test 107 meq/L 98-107 wugu=432) CO2 (BEAKER) (test 23 meq/L 22-29 wxpb=902) BLOOD UREA NITROGEN 2 mg/dL 7-21 (BEAKER) (test bqwo=584) CREATININE (BEAKER) (test 0.54 mg/dL 0.57-1.25 Specimen slightly gypz=119) hemolyzed GLUCOSE RANDOM (BEAKER) 89 mg/dL 70-105 (test cmfm=990) CALCIUM (BEAKER) (test 7.6 mg/dL 8.4-10.2 wmwf=459) AST (SGOT) (BEAKER) (test 101 U/L 5-34 Specimen slightly ythl=708) hemolyzed ALT (SGPT) (BEAKER) (test 41 U/L 6-55 Specimen slightly gwxp=416) hemolyzed EGFR (BEAKER) (test 176 mL/min/1.73 sq ESTIMATED GFR IS NOT zlcd=7628) m ACCURATE CREATININE CLEARANCE IN PREDICTING GLOMERULAR FILTRATION RATE. ESTIMATED GFR IS NOT APPLICABLE FOR DIALYSIS PATIENTS. [id number] 09:27:00 Test Item Value Reference Range Comments MAGNESIUM (BEAKER) (test 1.3 mg/dL 1.6-2.6 Specimen slightly hemolyzed hfgk=977) CBC W/PLT COUNT & AUTO [id number] 09:04:00 Test Item Value Reference Range Comments WHITE BLOOD CELL COUNT (BEAKER) (test ifgb=235) 5.7 K/ L 3.5-10.5 RED BLOOD CELL COUNT (BEAKER) (test thkh=730) 3.18 M/ L 4.63-6.08 HEMOGLOBIN (BEAKER) (test rkbt=460) 10.4 GM/DL 13.7-17.5 HEMATOCRIT (BEAKER) (test nojc=689) 33.1 % 40.1-51.0 MEAN CORPUSCULAR VOLUME (BEAKER) (test zpnj=972) 104.1 fL 79.0-92.2 MEAN CORPUSCULAR HEMOGLOBIN (BEAKER) (test 32.7 pg 25.7-32.2 oaax=051) MEAN CORPUSCULAR HEMOGLOBIN CONC (BEAKER) (test 31.4 GM/DL 32.3-36.5 tmbq=143) RED CELL DISTRIBUTION WIDTH (BEAKER) (test 15.9 % 11.6-14.4 daka=045) PLATELET COUNT (BEAKER) (test fvxm=578) 223 K/CU MM 150-450 MEAN PLATELET VOLUME (BEAKER) (test mlfp=186) 10.4 fL 9.4-12.4 NUCLEATED RED BLOOD CELLS (BEAKER) (test 0 /100 WBC 0-0 ljyl=680) NEUTROPHILS RELATIVE PERCENT (BEAKER) (test 58 % gjuj=322) LYMPHOCYTES RELATIVE PERCENT (BEAKER) (test 25 % swyy=760) MONOCYTES RELATIVE PERCENT (BEAKER) (test 11 % gqso=458) EOSINOPHILS RELATIVE PERCENT (BEAKER) (test 5 % cdtk=904) BASOPHILS RELATIVE PERCENT (BEAKER) (test 1 % left=920) NEUTROPHILS ABSOLUTE COUNT (BEAKER) (test 3.27 K/ L 1.78-5.38 fedt=331) LYMPHOCYTES ABSOLUTE COUNT (BEAKER) (test 1.40 K/ L 1.32-3.57 wpkz=170) MONOCYTES ABSOLUTE COUNT (BEAKER) (test 0.61 K/ L 0.30-0.82 zwhn=039) EOSINOPHILS ABSOLUTE COUNT (BEAKER) (test 0.30 K/ L 0.04-0.54 lvoa=376) BASOPHILS ABSOLUTE COUNT (BEAKER) (test 0.07 K/ L 0.01-0.08 kxly=854) IMMATURE GRANULOCYTES-RELATIVE PERCENT (BEAKER) 0 % 0-1 (test asmf=5903) COMPREHENSIVE METABOLIC [id number] 05:26:00 Test Item Value Reference Range Comments TOTAL PROTEIN (BEAKER) 5.7 gm/dL 6.0-8.3 (test xucq=497) ALBUMIN (BEAKER) (test 2.6 g/dL 3.5-5.0 yaqu=5958) ALKALINE PHOSPHATASE 204 U/L 40-150 (BEAKER) (test cirx=185) BILIRUBIN TOTAL (BEAKER) 1.0 mg/dL 0.2-1.2 (test qomx=843) SODIUM (BEAKER) (test 138 meq/L 136-145 vhje=531) POTASSIUM (BEAKER) (test 3.3 meq/L 3.5-5.1 agkq=683) CHLORIDE (BEAKER) (test 106 meq/L 98-107 rbzs=518) CO2 (BEAKER) (test 24 meq/L 22-29 tssk=433) BLOOD UREA NITROGEN 5 mg/dL 7-21 (BEAKER) (test vchd=005) CREATININE (BEAKER) (test 0.53 mg/dL 0.57-1.25 vmgp=992) GLUCOSE RANDOM (BEAKER) 85 mg/dL 70-105 (test bthc=644) CALCIUM (BEAKER) (test 7.3 mg/dL 8.4-10.2 hsuw=067) AST (SGOT) (BEAKER) (test 108 U/L 5-34 ngzc=885) ALT (SGPT) (BEAKER) (test 46 U/L 6-55 ihzg=677) EGFR (BEAKER) (test 180 mL/min/1.73 sq ESTIMATED GFR IS NOT lqga=6925) m ACCURATE CREATININE CLEARANCE IN PREDICTING GLOMERULAR FILTRATION RATE. ESTIMATED GFR IS NOT APPLICABLE FOR DIALYSIS PATIENTS. PROTHROMBIN [id number] 05:08:00 Test Item Value Reference Range Comments PROTIME (BEAKER) (test wrpo=813) 17.0 seconds 11.9-14.2 INR (BEAKER) (test oplx=648) 1.5 <=5.9 Effective 12/11/2018: PT Reference Range ChangeNew: 11.9-14.2 Previous: 11.7- 14.7RECOMMENDED COUMADIN/WARFARIN INR THERAPY RANGESSTANDARD DOSE: 2.0-3.0 Includes: PROPHYLAXIS for venous thrombosis, systemic embolization; TREATMENT for venous thrombosis and/or pulmonary embolus.HIGH RISK: Target INR is2.5-3.5 for patients wiht mechanical heart valves.CBC W/PLT COUNT & AUTO [id number] 04:59:00 Test Item Value Reference Range Comments WHITE BLOOD CELL COUNT (BEAKER) (test hcgj=643) 6.1 K/ L 3.5-10.5 RED BLOOD CELL COUNT (BEAKER) (test xwrr=907) 2.96 M/ L 4.63-6.08 HEMOGLOBIN (BEAKER) (test jfcp=193) 9.7 GM/DL 13.7-17.5 HEMATOCRIT (BEAKER) (test eydm=111) 30.5 % 40.1-51.0 MEAN CORPUSCULAR VOLUME (BEAKER) (test fbih=975) 103.0 fL 79.0-92.2 MEAN CORPUSCULAR HEMOGLOBIN (BEAKER) (test 32.8 pg 25.7-32.2 xsht=269) MEAN CORPUSCULAR HEMOGLOBIN CONC (BEAKER) (test 31.8 GM/DL 32.3-36.5 egzr=866) RED CELL DISTRIBUTION WIDTH (BEAKER) (test 16.0 % 11.6-14.4 esph=143) PLATELET COUNT (BEAKER) (test qacn=438) 221 K/CU MM 150-450 MEAN PLATELET VOLUME (BEAKER) (test pmcg=868) 10.7 fL 9.4-12.4 NUCLEATED RED BLOOD CELLS (BEAKER) (test 0 /100 WBC 0-0 hpxl=917) NEUTROPHILS RELATIVE PERCENT (BEAKER) (test 62 % hzec=420) LYMPHOCYTES RELATIVE PERCENT (BEAKER) (test 22 % xfhq=940) MONOCYTES RELATIVE PERCENT (BEAKER) (test 11 % vrch=946) EOSINOPHILS RELATIVE PERCENT (BEAKER) (test 3 % iwoz=730) BASOPHILS RELATIVE PERCENT (BEAKER) (test 1 % wcnn=255) NEUTROPHILS ABSOLUTE COUNT (BEAKER) (test 3.81 K/ L 1.78-5.38 mhwt=999) LYMPHOCYTES ABSOLUTE COUNT (BEAKER) (test 1.32 K/ L 1.32-3.57 gxcm=838) MONOCYTES ABSOLUTE COUNT (BEAKER) (test 0.70 K/ L 0.30-0.82 ivxu=566) EOSINOPHILS ABSOLUTE COUNT (BEAKER) (test 0.21 K/ L 0.04-0.54 pyeo=417) BASOPHILS ABSOLUTE COUNT (BEAKER) (test 0.07 K/ L 0.01-0.08 ehao=115) IMMATURE GRANULOCYTES-RELATIVE PERCENT (BEAKER) 0 % 0-1 (test agea=8735) POCT-GLUCOSE [id number] 07:44:00 Test Item Value Reference Range Comments POC-GLUCOSE METER (BEAKER) 90 mg/dL 70-110 TESTED AT [facility] [address] [facility] (test hmif=6472) [facility] [id number] COMPREHENSIVE METABOLIC [id number] 07:29:00 Test Item Value Reference Range Comments TOTAL PROTEIN (BEAKER) 5.7 gm/dL 6.0-8.3 (test itsf=549) ALBUMIN (BEAKER) (test 2.5 g/dL 3.5-5.0 pmnt=7766) ALKALINE PHOSPHATASE 411 U/L 40-150 (BEAKER) (test cgab=390) BILIRUBIN TOTAL (BEAKER) 1.7 mg/dL 0.2-1.2 (test vkcz=392) SODIUM (BEAKER) (test 139 meq/L 136-145 xgos=975) POTASSIUM (BEAKER) (test 3.1 meq/L 3.5-5.1 vnlh=742) CHLORIDE (BEAKER) (test 105 meq/L 98-107 xevy=183) CO2 (BEAKER) (test 24 meq/L 22-29 sido=682) BLOOD UREA NITROGEN 3 mg/dL 7-21 (BEAKER) (test kqps=479) CREATININE (BEAKER) (test 0.61 mg/dL 0.57-1.25 jsha=527) GLUCOSE RANDOM (BEAKER) 95 mg/dL 70-105 (test lpvu=763) CALCIUM (BEAKER) (test 6.8 mg/dL 8.4-10.2 ltph=182) AST (SGOT) (BEAKER) (test 173 U/L 5-34 icyf=730) ALT (SGPT) (BEAKER) (test 53 U/L 6-55 ezvh=080) EGFR (BEAKER) (test 153 mL/min/1.73 sq ESTIMATED GFR IS NOT xeox=4424) m ACCURATE CREATININE CLEARANCE IN PREDICTING GLOMERULAR FILTRATION RATE. ESTIMATED GFR IS NOT APPLICABLE FOR DIALYSIS PATIENTS. [id number] 07:28:00 Test Item Value Reference Range Comments PHOSPHORUS (BEAKER) (test dxeg=653) 2.4 mg/dL 2.3-4.7 [id number] 07:28:00 Test Item Value Reference Range Comments MAGNESIUM (BEAKER) (test ikap=858) 1.8 mg/dL 1.6-2.6 HEPATIC FUNCTION [id number] 07:28:00 Test Item Value Reference Range Comments TOTAL PROTEIN (BEAKER) (test gkpl=234) 5.7 gm/dL 6.0-8.3 ALBUMIN (BEAKER) (test jvln=6945) 2.5 g/dL 3.5-5.0 BILIRUBIN TOTAL (BEAKER) (test oxjl=962) 1.7 mg/dL 0.2-1.2 BILIRUBIN DIRECT (BEAKER) (test bscb=123) 1.3 mg/dL 0.1-0.5 ALKALINE PHOSPHATASE (BEAKER) (test vanr=465) 411 U/L 40-150 AST (SGOT) (BEAKER) (test qyos=577) 173 U/L 5-34 ALT (SGPT) (BEAKER) (test jqik=117) 53 U/L 6-55 [id number] 07:28:00 Test Item Value Reference Range Comments LIPASE (BEAKER) (test mdgl=486) 231 U/L 8-78 CBC W/PLT COUNT & AUTO [id number] 07:10:00 Test Item Value Reference Range Comments WHITE BLOOD CELL COUNT (BEAKER) (test brsj=287) 4.5 K/ L 3.5-10.5 RED BLOOD CELL COUNT (BEAKER) (test mkva=479) 2.76 M/ L 4.63-6.08 HEMOGLOBIN (BEAKER) (test nfco=277) 9.2 GM/DL 13.7-17.5 HEMATOCRIT (BEAKER) (test eefy=475) 29.2 % 40.1-51.0 MEAN CORPUSCULAR VOLUME (BEAKER) (test rldg=692) 105.8 fL 79.0-92.2 MEAN CORPUSCULAR HEMOGLOBIN (BEAKER) (test 33.3 pg 25.7-32.2 ebwx=646) MEAN CORPUSCULAR HEMOGLOBIN CONC (BEAKER) (test 31.5 GM/DL 32.3-36.5 kiba=787) RED CELL DISTRIBUTION WIDTH (BEAKER) (test 21.9 % 11.6-14.4 qvzx=755) PLATELET COUNT (BEAKER) (test rbci=330) 150 K/CU MM 150-450 MEAN PLATELET VOLUME (BEAKER) (test vqye=916) 10.5 fL 9.4-12.4 NUCLEATED RED BLOOD CELLS (BEAKER) (test 0 /100 WBC 0-0 bonq=059) NEUTROPHILS RELATIVE PERCENT (BEAKER) (test 65 % dlub=373) LYMPHOCYTES RELATIVE PERCENT (BEAKER) (test 17 % ivdz=820) MONOCYTES RELATIVE PERCENT (BEAKER) (test 13 % hzrc=583) EOSINOPHILS RELATIVE PERCENT (BEAKER) (test 2 % rhjj=171) BASOPHILS RELATIVE PERCENT (BEAKER) (test 1 % fltf=608) NEUTROPHILS ABSOLUTE COUNT (BEAKER) (test 2.91 K/ L 1.78-5.38 umsl=652) LYMPHOCYTES ABSOLUTE COUNT (BEAKER) (test 0.78 K/ L 1.32-3.57 xjap=966) MONOCYTES ABSOLUTE COUNT (BEAKER) (test 0.59 K/ L 0.30-0.82 ebgp=694) EOSINOPHILS ABSOLUTE COUNT (BEAKER) (test 0.11 K/ L 0.04-0.54 bxwn=606) BASOPHILS ABSOLUTE COUNT (BEAKER) (test 0.05 K/ L 0.01-0.08 hakd=723) IMMATURE GRANULOCYTES-RELATIVE PERCENT (BEAKER) 2 % 0-1 (test uqre=5259) COMPREHENSIVE METABOLIC [id number] 04:23:00 Test Item Value Reference Range Comments TOTAL PROTEIN (BEAKER) 5.5 gm/dL 6.0-8.3 (test ryup=901) ALBUMIN (BEAKER) (test 2.5 g/dL 3.5-5.0 xjbt=6356) ALKALINE PHOSPHATASE 453 U/L 40-150 (BEAKER) (test mpvh=431) BILIRUBIN TOTAL (BEAKER) 2.0 mg/dL 0.2-1.2 (test tonv=468) SODIUM (BEAKER) (test 138 meq/L 136-145 wpjh=742) POTASSIUM (BEAKER) (test 3.2 meq/L 3.5-5.1 mtvl=096) CHLORIDE (BEAKER) (test 104 meq/L 98-107 necb=271) CO2 (BEAKER) (test 26 meq/L 22-29 vdlq=768) BLOOD UREA NITROGEN 3 mg/dL 7-21 (BEAKER) (test dmxh=088) CREATININE (BEAKER) (test 0.51 mg/dL 0.57-1.25 rgyq=711) GLUCOSE RANDOM (BEAKER) 104 mg/dL 70-105 (test lqxk=601) CALCIUM (BEAKER) (test 7.0 mg/dL 8.4-10.2 gnxp=542) AST (SGOT) (BEAKER) (test 166 U/L 5-34 tqkl=901) ALT (SGPT) (BEAKER) (test 52 U/L 6-55 zfwi=424) EGFR (BEAKER) (test 188 mL/min/1.73 sq ESTIMATED GFR IS NOT jkfc=2864) m ACCURATE CREATININE CLEARANCE IN PREDICTING GLOMERULAR FILTRATION RATE. ESTIMATED GFR IS NOT APPLICABLE FOR DIALYSIS PATIENTS. [id number] 04:21:00 Test Item Value Reference Range Comments PHOSPHORUS (BEAKER) (test uxpw=737) 2.0 mg/dL 2.3-4.7 [id number] 04:21:00 Test Item Value Reference Range Comments MAGNESIUM (BEAKER) (test djky=325) 1.5 mg/dL 1.6-2.6 HEPATIC FUNCTION [id number] 04:21:00 Test Item Value Reference Range Comments TOTAL PROTEIN (BEAKER) (test oghw=751) 5.5 gm/dL 6.0-8.3 ALBUMIN (BEAKER) (test vvgu=6234) 2.5 g/dL 3.5-5.0 BILIRUBIN TOTAL (BEAKER) (test gibn=594) 2.0 mg/dL 0.2-1.2 BILIRUBIN DIRECT (BEAKER) (test pedh=391) 1.5 mg/dL 0.1-0.5 ALKALINE PHOSPHATASE (BEAKER) (test qkgc=744) 453 U/L 40-150 AST (SGOT) (BEAKER) (test hyxv=144) 166 U/L 5-34 ALT (SGPT) (BEAKER) (test egtf=162) 52 U/L 6-55 [id number] 04:21:00 Test Item Value Reference Range Comments LIPASE (BEAKER) (test xnhp=156) 283 U/L 8-78 CBC W/PLT COUNT & AUTO [id number] 04:19:00 Test Item Value Reference Range Comments WHITE BLOOD CELL COUNT (BEAKER) (test ghni=925) 4.6 K/ L 3.5-10.5 RED BLOOD CELL COUNT (BEAKER) (test yfsh=766) 2.82 M/ L 4.63-6.08 HEMOGLOBIN (BEAKER) (test yiuq=212) 9.4 GM/DL 13.7-17.5 HEMATOCRIT (BEAKER) (test ayfe=905) 28.9 % 40.1-51.0 MEAN CORPUSCULAR VOLUME (BEAKER) (test bbfk=512) 102.5 fL 79.0-92.2 MEAN CORPUSCULAR HEMOGLOBIN (BEAKER) (test 33.3 pg 25.7-32.2 fzax=638) MEAN CORPUSCULAR HEMOGLOBIN CONC (BEAKER) (test 32.5 GM/DL 32.3-36.5 effq=709) RED CELL DISTRIBUTION WIDTH (BEAKER) (test 21.8 % 11.6-14.4 mezw=883) PLATELET COUNT (BEAKER) (test epwj=502) 141 K/CU MM 150-450 MEAN PLATELET VOLUME (BEAKER) (test tpqp=661) 9.5 fL 9.4-12.4 NUCLEATED RED BLOOD CELLS (BEAKER) (test 0 /100 WBC 0-0 cife=476) NEUTROPHILS RELATIVE PERCENT (BEAKER) (test 63 % peqp=238) LYMPHOCYTES RELATIVE PERCENT (BEAKER) (test 22 % hwih=177) MONOCYTES RELATIVE PERCENT (BEAKER) (test 10 % dcmg=779) EOSINOPHILS RELATIVE PERCENT (BEAKER) (test 3 % biax=784) BASOPHILS RELATIVE PERCENT (BEAKER) (test 1 % owav=166) NEUTROPHILS ABSOLUTE COUNT (BEAKER) (test 2.86 K/ L 1.78-5.38 amvw=014) LYMPHOCYTES ABSOLUTE COUNT (BEAKER) (test 1.02 K/ L 1.32-3.57 wbqa=662) MONOCYTES ABSOLUTE COUNT (BEAKER) (test 0.44 K/ L 0.30-0.82 zqop=720) EOSINOPHILS ABSOLUTE COUNT (BEAKER) (test 0.12 K/ L 0.04-0.54 wurf=055) BASOPHILS ABSOLUTE COUNT (BEAKER) (test 0.05 K/ L 0.01-0.08 oghy=501) IMMATURE GRANULOCYTES-RELATIVE PERCENT (BEAKER) 2 % 0-1 (test trik=0040) HEMOGLOBIN AND [id number] 03:57:00 Test Item Value Reference Range Comments HEMOGLOBIN (BEAKER) (test ebyl=893) 9.4 GM/DL 13.7-17.5 HEMATOCRIT (BEAKER) (test tapr=448) 28.9 % 40.1-51.0 HEMOGLOBIN AND [id number] 11:59:00 Test Item Value Reference Range Comments HEMOGLOBIN (BEAKER) (test yigh=091) 8.4 GM/DL 13.7-17.5 HEMATOCRIT (BEAKER) (test ycik=081) 24.7 % 40.1-51.0 [id number] 09:15:00 Test Item Value Reference Range Comments LIPASE (BEAKER) (test tuzn=678) 214 U/L 8-78 HEPATIC FUNCTION [id number] 06:09:00 Test Item Value Reference Range Comments TOTAL PROTEIN (BEAKER) (test decl=919) 5.1 gm/dL 6.0-8.3 ALBUMIN (BEAKER) (test hpel=8196) 2.4 g/dL 3.5-5.0 BILIRUBIN TOTAL (BEAKER) (test wjxa=367) 2.0 mg/dL 0.2-1.2 BILIRUBIN DIRECT (BEAKER) (test gpir=601) 1.4 mg/dL 0.1-0.5 ALKALINE PHOSPHATASE (BEAKER) (test uuvm=113) 418 U/L 40-150 AST (SGOT) (BEAKER) (test ybtc=581) 147 U/L 5-34 ALT (SGPT) (BEAKER) (test tvop=671) 51 U/L 6-55 CBC (HEMOGRAM ONLY)[id number] 05:04:00 Test Item Value Reference Range Comments WHITE BLOOD CELL COUNT (BEAKER) (test gcgt=700) 4.8 K/ L 3.5-10.5 RED BLOOD CELL COUNT (BEAKER) (test mhpu=001) 2.41 M/ L 4.63-6.08 HEMOGLOBIN (BEAKER) (test istd=303) 8.1 GM/DL 13.7-17.5 HEMATOCRIT (BEAKER) (test gsid=724) 24.1 % 40.1-51.0 MEAN CORPUSCULAR VOLUME (BEAKER) (test phpq=734) 100.0 fL 79.0-92.2 MEAN CORPUSCULAR HEMOGLOBIN (BEAKER) (test 33.6 pg 25.7-32.2 wdaa=755) MEAN CORPUSCULAR HEMOGLOBIN CONC (BEAKER) (test 33.6 GM/DL 32.3-36.5 ljfd=677) RED CELL DISTRIBUTION WIDTH (BEAKER) (test 22.4 % 11.6-14.4 mkhf=499) PLATELET COUNT (BEAKER) (test dycm=229) 135 K/CU MM 150-450 MEAN PLATELET VOLUME (BEAKER) (test qakj=082) 10.0 fL 9.4-12.4 NUCLEATED RED BLOOD CELLS (BEAKER) (test 1 /100 WBC 0-0 fmrg=550) BASIC METABOLIC [id number] 02:50:00 Test Item Value Reference Range Comments SODIUM (BEAKER) (test 137 meq/L 136-145 svvv=958) POTASSIUM (BEAKER) (test 3.1 meq/L 3.5-5.1 drce=510) CHLORIDE (BEAKER) (test 104 meq/L 98-107 ziwt=370) CO2 (BEAKER) (test 24 meq/L 22-29 clux=339) BLOOD UREA NITROGEN 3 mg/dL 7-21 (BEAKER) (test yvnz=192) CREATININE (BEAKER) (test 0.50 mg/dL 0.57-1.25 niyg=368) GLUCOSE RANDOM (BEAKER) 124 mg/dL 70-105 (test nrtz=648) CALCIUM (BEAKER) (test 6.5 mg/dL 8.4-10.2 mvhm=338) EGFR (BEAKER) (test 193 mL/min/1.73 sq m ESTIMATED GFR IS NOT jsif=3035) ACCURATE CREATININE CLEARANCE IN PREDICTING GLOMERULAR FILTRATION RATE. ESTIMATED GFR IS NOT APPLICABLE FOR DIALYSIS PATIENTS. [id number] 02:14:00 Test Item Value Reference Range Comments PHOSPHORUS (BEAKER) (test ldfh=900) 2.6 mg/dL 2.3-4.7 [id number] 02:14:00 Test Item Value Reference Range Comments MAGNESIUM (BEAKER) (test kmgb=069) 1.9 mg/dL 1.6-2.6 HEMOGLOBIN AND [id number] 01:13:00 Test Item Value Reference Range Comments HEMOGLOBIN (BEAKER) (test epsm=824) 8.1 GM/DL 13.7-17.5 HEMATOCRIT (BEAKER) (test qmdm=353) 23.8 % 40.1-51.0 POCT-GLUCOSE [id number] 20:56:00 Test Item Value Reference Range Comments POC-GLUCOSE METER (BEAKER) 105 mg/dL 70-110 TESTED AT [facility] [address] [facility] (test eirv=9457) [facility] [address] COMPREHENSIVE METABOLIC [id number] 14:51:00 Test Item Value Reference Range Comments TOTAL PROTEIN (BEAKER) 6.0 gm/dL 6.0-8.3 (test errp=154) ALBUMIN (BEAKER) (test 2.8 g/dL 3.5-5.0 hntf=4123) ALKALINE PHOSPHATASE 489 U/L 40-150 (BEAKER) (test bdrv=780) BILIRUBIN TOTAL (BEAKER) 2.7 mg/dL 0.2-1.2 (test wlxf=305) SODIUM (BEAKER) (test 141 meq/L 136-145 oalp=562) POTASSIUM (BEAKER) (test 2.6 meq/L 3.5-5.1 sqix=891) CHLORIDE (BEAKER) (test 103 meq/L 98-107 xbja=289) CO2 (BEAKER) (test 28 meq/L 22-29 rpmu=241) BLOOD UREA NITROGEN 5 mg/dL 7-21 (BEAKER) (test wfrn=904) CREATININE (BEAKER) (test 0.54 mg/dL 0.57-1.25 bpxf=460) GLUCOSE RANDOM (BEAKER) 88 mg/dL 70-105 (test iiop=434) CALCIUM (BEAKER) (test 7.1 mg/dL 8.4-10.2 wbeg=683) AST (SGOT) (BEAKER) (test 168 U/L 5-34 qssg=505) ALT (SGPT) (BEAKER) (test 61 U/L 6-55 xdpb=870) EGFR (BEAKER) (test 176 mL/min/1.73 sq ESTIMATED GFR IS NOT fosm=2935) m ACCURATE CREATININE CLEARANCE IN PREDICTING GLOMERULAR FILTRATION RATE. ESTIMATED GFR IS NOT APPLICABLE FOR DIALYSIS PATIENTS. Specimen slightly [id number] 14:51:00 Test Item Value Reference Range Comments PHOSPHORUS (BEAKER) (test nzhl=037) 0.9 mg/dL 2.3-4.7 [id number] 14:41:00 Test Item Value Reference Range Comments MAGNESIUM (BEAKER) (test mnng=906) 1.3 mg/dL 1.6-2.6 [id number] 14:41:00 Test Item Value Reference Range Comments AMYLASE (BEAKER) (test dyjq=977) 160 U/L 25-125 Specimen slightly ictericLACTATE DEHYDROGENASE (LDH)2019-02-12 14:41:00 Test Item Value Reference Range Comments LACTATE DEHYDROGENASE (BEAKER) (test ewgp=254) 572 U/L 125-220 [id number] 14:41:00 Test Item Value Reference Range Comments LIPASE (BEAKER) (test kdtj=451) 562 U/L 8-78 Specimen slightly [id number] 14:39:00 Test Item Value Reference Range Comments ETHANOL (BEAKER) (test rndg=677) < mg/dL <=10 [id number] 14:27:00 Test Item Value Reference Range Comments D-DIMER QUANTITATIVE (BEAKER) (test lufw=606) 4.23 MG/L FEU <0.50 Intended Use: The [...] of thrombosis is within 95-100% range.LACTIC ACID, [id number] 14:25:00 Test Item Value Reference Range Comments LACTATE BLOOD VENOUS (2) (BEAKER) (test 1.5 mmol/L 0.5-2.2 qaxr=4014) [id number] 14:21:00 Test Item Value Reference Range Comments AMMONIA (BEAKER) (test turw=341) 50 mol/L 18-72 [id number] 14:17:00 Test Item Value Reference Range Comments PROTIME (BEAKER) (test kmdi=077) 17.8 seconds 11.9-14.2 INR (BEAKER) (test mjbv=723) 1.6 <=5.9 PARTIAL THROMBOPLASTIN TIME (BEAKER) (test 34.9 seconds 22.5-36.0 lgya=291) Effective 12/11/2018: PT Reference Range ChangeNew: 11.9-14.2 Previous: 11.7- 14.7RECOMMENDED COUMADIN/WARFARIN INR THERAPY RANGESSTANDARD DOSE: 2.0-3.0 Includes: PROPHYLAXIS for venous thrombosis, systemic embolization; TREATMENT for venous thrombosis and/or pulmonary embolus.HIGH RISK: Target INR is2.5-3.5 for patients wiht mechanical heart valves.[id number] 14:17:00 Test Item Value Reference Range Comments FIBRINOGEN LEVEL (BEAKER) (test qvxf=156) 304 mg/dl 225-434 CBC (HEMOGRAM ONLY)2019-02-12 14:13:00 Test Item Value Reference Range Comments WHITE BLOOD CELL COUNT 5.0 K/ L 3.5-10.5 (BEAKER) (test ffhs=493) RED BLOOD CELL COUNT (BEAKER) 2.64 M/ L 4.63-6.08 (test gujz=036) HEMOGLOBIN (BEAKER) (test 9.0 GM/DL 13.7-17.5 eiod=660) HEMATOCRIT (BEAKER) (test 27.0 % 40.1-51.0 zuid=112) MEAN CORPUSCULAR VOLUME 102.3 fL 79.0-92.2 (BEAKER) (test yltt=877) MEAN CORPUSCULAR HEMOGLOBIN 34.1 pg 25.7-32.2 (BEAKER) (test lhok=502) MEAN CORPUSCULAR HEMOGLOBIN 33.3 GM/DL 32.3-36.5 CONC (BEAKER) (test jsaz=966) RED CELL DISTRIBUTION WIDTH % 11.6-14.4 Unable to report due to (BEAKER) (test mhgq=238) abnormal Platelet population distribution. PLATELET COUNT (BEAKER) (test 146 K/CU MM 150-450 digl=894) MEAN PLATELET VOLUME (BEAKER) 10.0 fL 9.4-12.4 (test ecyf=721) NUCLEATED RED BLOOD CELLS 1 /100 WBC 0-0 (BEAKER) (test hhsw=413) CBC W/PLT COUNT & AUTO [id number] 05:36:00 Test Item Value Reference Range Comments WHITE BLOOD CELL COUNT (BEAKER) (test iojd=227) 3.1 K/ L 3.5-10.5 RED BLOOD CELL COUNT (BEAKER) (test lswk=892) 3.39 M/ L 4.63-6.08 HEMOGLOBIN (BEAKER) (test ancz=035) 11.5 GM/DL 13.7-17.5 HEMATOCRIT (BEAKER) (test mcpl=481) 33.7 % 40.1-51.0 MEAN CORPUSCULAR VOLUME (BEAKER) (test xvmo=110) 99.4 fL 79.0-92.2 MEAN CORPUSCULAR HEMOGLOBIN (BEAKER) (test 33.9 pg 25.7-32.2 xxfo=184) MEAN CORPUSCULAR HEMOGLOBIN CONC (BEAKER) (test 34.1 GM/DL 32.3-36.5 hzhw=707) RED CELL DISTRIBUTION WIDTH (BEAKER) (test 12.8 % 11.6-14.4 kiom=137) PLATELET COUNT (BEAKER) (test dbqc=147) 130 K/CU MM 150-450 MEAN PLATELET VOLUME (BEAKER) (test neax=543) 10.4 fL 9.4-12.4 NUCLEATED RED BLOOD CELLS (BEAKER) (test 0 /100 WBC 0-0 eojx=142) NEUTROPHILS RELATIVE PERCENT (BEAKER) (test 51 % mqey=217) LYMPHOCYTES RELATIVE PERCENT (BEAKER) (test 31 % stie=928) MONOCYTES RELATIVE PERCENT (BEAKER) (test 12 % ndyd=199) EOSINOPHILS RELATIVE PERCENT (BEAKER) (test 4 % nbow=811) BASOPHILS RELATIVE PERCENT (BEAKER) (test 1 % admn=523) NEUTROPHILS ABSOLUTE COUNT (BEAKER) (test 1.61 K/ L 1.78-5.38 jywt=114) LYMPHOCYTES ABSOLUTE COUNT (BEAKER) (test 0.98 K/ L 1.32-3.57 lgme=556) MONOCYTES ABSOLUTE COUNT (BEAKER) (test 0.38 K/ L 0.30-0.82 hptu=709) EOSINOPHILS ABSOLUTE COUNT (BEAKER) (test 0.11 K/ L 0.04-0.54 pbbv=760) BASOPHILS ABSOLUTE COUNT (BEAKER) (test 0.04 K/ L 0.01-0.08 eanw=097) IMMATURE GRANULOCYTES-RELATIVE PERCENT (BEAKER) 1 % 0-1 (test xvop=9348) MR, ABDOMEN, [id number] 13:31:00FINAL REPORT MRCP, MRI of abdomen without [...] MDReport Verified Date/Time: 12/12/2018 13:31:00 Reading Location: [facility] B1 C013Y CT Body Reading Room COMPREHENSIVE METABOLIC [id number] 09:56:00 Test Item Value Reference Range Comments TOTAL PROTEIN (BEAKER) 5.5 gm/dL 6.0-8.3 (test ogxh=500) ALBUMIN (BEAKER) (test 3.1 g/dL 3.5-5.0 oreg=7227) ALKALINE PHOSPHATASE 116 U/L 40-150 (BEAKER) (test wcmz=311) BILIRUBIN TOTAL (BEAKER) 1.9 mg/dL 0.2-1.2 (test oklw=717) SODIUM (BEAKER) (test 139 meq/L 136-145 ozlg=097) POTASSIUM (BEAKER) (test 3.0 meq/L 3.5-5.1 gxft=181) CHLORIDE (BEAKER) (test 107 meq/L 98-107 jenl=562) CO2 (BEAKER) (test 23 meq/L 22-29 naxc=024) BLOOD UREA NITROGEN 4 mg/dL 7-21 (BEAKER) (test csxx=237) CREATININE (BEAKER) (test 0.56 mg/dL 0.57-1.25 olcs=935) GLUCOSE RANDOM (BEAKER) 116 mg/dL 70-105 (test opel=484) CALCIUM (BEAKER) (test 7.4 mg/dL 8.4-10.2 dngx=299) AST (SGOT) (BEAKER) (test 297 U/L 5-34 indm=992) ALT (SGPT) (BEAKER) (test 173 U/L 6-55 luim=286) EGFR (BEAKER) (test 169 mL/min/1.73 sq ESTIMATED GFR IS NOT pzcj=4809) m ACCURATE CREATININE CLEARANCE IN PREDICTING GLOMERULAR FILTRATION RATE. ESTIMATED GFR IS NOT APPLICABLE FOR DIALYSIS PATIENTS. CBC W/PLT COUNT & AUTO [id number] 04:42:00 Test Item Value Reference Range Comments WHITE BLOOD CELL COUNT (BEAKER) (test paon=658) 3.1 K/ L 3.5-10.5 RED BLOOD CELL COUNT (BEAKER) (test glwq=146) 3.09 M/ L 4.63-6.08 HEMOGLOBIN (BEAKER) (test beaf=619) 10.7 GM/DL 13.7-17.5 HEMATOCRIT (BEAKER) (test lulx=935) 30.5 % 40.1-51.0 MEAN CORPUSCULAR VOLUME (BEAKER) (test qydu=746) 98.7 fL 79.0-92.2 MEAN CORPUSCULAR HEMOGLOBIN (BEAKER) (test 34.6 pg 25.7-32.2 hhcf=234) MEAN CORPUSCULAR HEMOGLOBIN CONC (BEAKER) (test 35.1 GM/DL 32.3-36.5 xood=854) RED CELL DISTRIBUTION WIDTH (BEAKER) (test 12.4 % 11.6-14.4 vqdh=587) PLATELET COUNT (BEAKER) (test pcph=409) 99 K/CU MM 150-450 MEAN PLATELET VOLUME (BEAKER) (test ntrd=498) 11.0 fL 9.4-12.4 NUCLEATED RED BLOOD CELLS (BEAKER) (test 0 /100 WBC 0-0 zftx=057) NEUTROPHILS RELATIVE PERCENT (BEAKER) (test 60 % blsb=208) LYMPHOCYTES RELATIVE PERCENT (BEAKER) (test 26 % uvsq=022) MONOCYTES RELATIVE PERCENT (BEAKER) (test 11 % znqx=677) EOSINOPHILS RELATIVE PERCENT (BEAKER) (test 2 % bmgn=742) BASOPHILS RELATIVE PERCENT (BEAKER) (test 1 % rlwv=607) NEUTROPHILS ABSOLUTE COUNT (BEAKER) (test 1.84 K/ L 1.78-5.38 xyqr=717) LYMPHOCYTES ABSOLUTE COUNT (BEAKER) (test 0.81 K/ L 1.32-3.57 rjhc=425) MONOCYTES ABSOLUTE COUNT (BEAKER) (test cmmt=446) 0.34 K/ L 0.30-0.82 EOSINOPHILS ABSOLUTE COUNT (BEAKER) (test 0.06 K/ L 0.04-0.54 jbud=539) BASOPHILS ABSOLUTE COUNT (BEAKER) (test pnmj=010) 0.03 K/ L 0.01-0.08 IMMATURE GRANULOCYTES-RELATIVE PERCENT (BEAKER) 0 % 0-1 (test rqvi=4626) FL, ESOPH, SWALLOW FUNCTION, WITH CINE OR [id number] 12:02:00Reason for exam:->pneumomediastinum, rule out esophageal perforationFINAL [...] Date/Time: 12/11/2018 12:02: 17 Reading Location: [address] Ortho Consult Reading Room BASI METABOLIC [id number] 07:31:00 Test Item Value Reference Range Comments SODIUM (BEAKER) (test 139 meq/L 136-145 fdyc=536) POTASSIUM (BEAKER) (test 3.4 meq/L 3.5-5.1 Specimen slightly frgl=831) hemolyzed CHLORIDE (BEAKER) (test 103 meq/L 98-107 qsfh=037) CO2 (BEAKER) (test 20 meq/L 22-29 dvih=080) BLOOD UREA NITROGEN 18 mg/dL 7-21 (BEAKER) (test kguh=138) CREATININE (BEAKER) (test 0.73 mg/dL 0.57-1.25 Specimen slightly gznr=448) hemolyzed GLUCOSE RANDOM (BEAKER) 67 mg/dL 70-105 (test anux=623) CALCIUM (BEAKER) (test 8.6 mg/dL 8.4-10.2 xhef=288) EGFR (BEAKER) (test 125 mL/min/1.73 sq m ESTIMATED GFR IS NOT msbu=2490) ACCURATE CREATININE CLEARANCE IN PREDICTING GLOMERULAR FILTRATION RATE. ESTIMATED GFR IS NOT APPLICABLE FOR DIALYSIS PATIENTS. CBC W/PLT COUNT & AUTO [id number] 07:12:00 Test Item Value Reference Range Comments WHITE BLOOD CELL COUNT (BEAKER) (test ecop=401) 4.6 K/ L 3.5-10.5 RED BLOOD CELL COUNT (BEAKER) (test bljv=576) 3.19 M/ L 4.63-6.08 HEMOGLOBIN (BEAKER) (test wlmd=120) 11.1 GM/DL 13.7-17.5 HEMATOCRIT (BEAKER) (test kxok=493) 31.0 % 40.1-51.0 MEAN CORPUSCULAR VOLUME (BEAKER) (test pesk=065) 97.2 fL 79.0-92.2 MEAN CORPUSCULAR HEMOGLOBIN (BEAKER) (test 34.8 pg 25.7-32.2 befp=149) MEAN CORPUSCULAR HEMOGLOBIN CONC (BEAKER) (test 35.8 GM/DL 32.3-36.5 ommn=160) RED CELL DISTRIBUTION WIDTH (BEAKER) (test 13.0 % 11.6-14.4 qjjg=579) PLATELET COUNT (BEAKER) (test ynql=181) 103 K/CU MM 150-450 MEAN PLATELET VOLUME (BEAKER) (test aqsd=754) 11.0 fL 9.4-12.4 NUCLEATED RED BLOOD CELLS (BEAKER) (test 0 /100 WBC 0-0 ioxq=866) NEUTROPHILS RELATIVE PERCENT (BEAKER) (test 73 % hncd=725) LYMPHOCYTES RELATIVE PERCENT (BEAKER) (test 16 % mjar=968) MONOCYTES RELATIVE PERCENT (BEAKER) (test 9 % pcix=085) EOSINOPHILS RELATIVE PERCENT (BEAKER) (test 1 % zfnv=856) BASOPHILS RELATIVE PERCENT (BEAKER) (test 0 % lttt=263) NEUTROPHILS ABSOLUTE COUNT (BEAKER) (test 3.36 K/ L 1.78-5.38 edua=435) LYMPHOCYTES ABSOLUTE COUNT (BEAKER) (test 0.75 K/ L 1.32-3.57 mqur=852) MONOCYTES ABSOLUTE COUNT (BEAKER) (test 0.41 K/ L 0.30-0.82 wclm=127) EOSINOPHILS ABSOLUTE COUNT (BEAKER) (test 0.04 K/ L 0.04-0.54 phxb=954) BASOPHILS ABSOLUTE COUNT (BEAKER) (test 0.02 K/ L 0.01-0.08 gvhs=634) IMMATURE GRANULOCYTES-RELATIVE PERCENT (BEAKER) 1 % 0-1 (test pjgc=7284) RAD, CHEST, 1 VIEW, NON [id number] 20:13:00Reason for exam:-> pneumomediastinumShould this be performed [...] Verified Date /Time: 12/10/2018 20:13:39 Reading Location: [address] Reading Room [id number] 19:12:00 Test Item Value Reference Range Comments MAGNESIUM (BEAKER) (test 1.8 mg/dL 1.6-2.6 Specimen slightly hemolyzed juxk=494) COMPREHENSIVE METABOLIC [id number] 19:12:00 Test Item Value Reference Range Comments TOTAL PROTEIN (BEAKER) 6.3 gm/dL 6.0-8.3 Specimen slightly (test fhlj=836) hemolyzed ALBUMIN (BEAKER) (test 3.7 g/dL 3.5-5.0 Specimen slightly oryf=7186) hemolyzed ALKALINE PHOSPHATASE 129 U/L 40-150 (BEAKER) (test uvep=408) BILIRUBIN TOTAL (BEAKER) 2.9 mg/dL 0.2-1.2 Specimen slightly (test xcld=350) hemolyzed SODIUM (BEAKER) (test 137 meq/L 136-145 qttx=875) POTASSIUM (BEAKER) (test 2.7 meq/L 3.5-5.1 Specimen slightly qbxu=496) hemolyzed CHLORIDE (BEAKER) (test 99 meq/L 98-107 vhfr=934) CO2 (BEAKER) (test 23 meq/L 22-29 kxan=898) BLOOD UREA NITROGEN 22 mg/dL 7-21 (BEAKER) (test cxvb=918) CREATININE (BEAKER) (test 1.28 mg/dL 0.57-1.25 Specimen slightly rqli=939) hemolyzed GLUCOSE RANDOM (BEAKER) 78 mg/dL 70-105 (test ftkk=703) CALCIUM (BEAKER) (test 8.5 mg/dL 8.4-10.2 rmue=643) AST (SGOT) (BEAKER) (test 502 U/L 5-34 Specimen slightly rkie=656) hemolyzed ALT (SGPT) (BEAKER) (test 225 U/L 6-55 Specimen slightly edws=695) hemolyzed EGFR (BEAKER) (test 65 mL/min/1.73 sq m ESTIMATED GFR IS NOT kfom=1461) ACCURATE CREATININE CLEARANCE IN PREDICTING GLOMERULAR FILTRATION RATE. ESTIMATED GFR IS NOT APPLICABLE FOR DIALYSIS PATIENTS. Specimen slightly ictericPROTHROMBIN [id number] 18:53:00 Test Item Value Reference Range Comments PROTIME (BEAKER) (test hoaz=002) 15.8 seconds 11.7-14.7 INR (BEAKER) (test qodn=140) 1.3 <=5.9 RECOMMENDED COUMADIN/WARFARIN INR THERAPY RANGESSTANDARD DOSE: 2.0 - 3.0 Includes: PROPHYLAXIS forvenous thrombosis, systemic embolization; TREATMENT for venous thrombosis and/or pulmonary embolus.HIGH RISK: Target INR is 2.5-3.5 for patients with mechanical heart valves.CBC W/PLT COUNT & AUTO [id number] 18:49:00 Test Item Value Reference Range Comments WHITE BLOOD CELL COUNT (BEAKER) (test okjs=139) 6.0 K/ L 3.5-10.5 RED BLOOD CELL COUNT (BEAKER) (test ppic=420) 3.44 M/ L 4.63-6.08 HEMOGLOBIN (BEAKER) (test yhdh=835) 11.6 GM/DL 13.7-17.5 HEMATOCRIT (BEAKER) (test iyhq=358) 34.1 % 40.1-51.0 MEAN CORPUSCULAR VOLUME (BEAKER) (test ejtc=275) 99.1 fL 79.0-92.2 MEAN CORPUSCULAR HEMOGLOBIN (BEAKER) (test 33.7 pg 25.7-32.2 ibur=531) MEAN CORPUSCULAR HEMOGLOBIN CONC (BEAKER) (test 34.0 GM/DL 32.3-36.5 hnkx=265) RED CELL DISTRIBUTION WIDTH (BEAKER) (test 13.1 % 11.6-14.4 pfql=322) PLATELET COUNT (BEAKER) (test uqyh=038) 109 K/CU MM 150-450 MEAN PLATELET VOLUME (BEAKER) (test vhia=516) 11.0 fL 9.4-12.4 NUCLEATED RED BLOOD CELLS (BEAKER) (test 0 /100 WBC 0-0 qoiv=057) NEUTROPHILS RELATIVE PERCENT (BEAKER) (test 81 % xkkr=226) LYMPHOCYTES RELATIVE PERCENT (BEAKER) (test 12 % jrmk=499) MONOCYTES RELATIVE PERCENT (BEAKER) (test 7 % fdtk=800) EOSINOPHILS RELATIVE PERCENT (BEAKER) (test 0 % jdbq=123) BASOPHILS RELATIVE PERCENT (BEAKER) (test 0 % zpja=425) NEUTROPHILS ABSOLUTE COUNT (BEAKER) (test 4.84 K/ L 1.78-5.38 dtvc=042) LYMPHOCYTES ABSOLUTE COUNT (BEAKER) (test 0.72 K/ L 1.32-3.57 hukk=087) MONOCYTES ABSOLUTE COUNT (BEAKER) (test 0.41 K/ L 0.30-0.82 gyva=090) EOSINOPHILS ABSOLUTE COUNT (BEAKER) (test 0.01 K/ L 0.04-0.54 eswg=877) BASOPHILS ABSOLUTE COUNT (BEAKER) (test 0.02 K/ L 0.01-0.08 yciu=439) IMMATURE GRANULOCYTES-RELATIVE PERCENT (BEAKER) 0 % 0-1 (test cbdz=6312) BLOOD [id number] 20:01:00 Test Item Value Reference Range Comments CULTURE (BEAKER) (test qxsp=6633) No growth in 5 days BLOOD [id number] 20:01:00 Test Item Value Reference Range Comments CULTURE (BEAKER) (test auzs=8258) No growth in 5 days RAD, CHEST, 1 VIEW, NON [id number] 13:13:00Reason for exam:->evalute for pneumoniaShould this be performed at the bedside?->YesAddendum BeginsREPORT STATUS:A Addendum:Clinical diagnosis alcohol withdrawalsyndrome, electrolyte disturbances, elevated liver function tests, pneumonia, Signed: Marilu Sharpe MDReport Verified Date/Time: 11/01/2018 13:13: 23 Reading Location: [address] Consult Reading RoomAddendum EndsFINAL REPORT Chest [...] MDReport Verified Date/Time: 10/28 15:36:38 Reading Location: [facility] [id number] Consult Reading Room U/S, ABDOMINAL, WITH [id number] 10:43:00Reason for exam:->evaluate for portal hypertension, cirrhosis, [...] MDReport Verified Date/Time: 10/31/2018 10:43:58 Reading Location: [facility] [id number] Ultrasound Reading Room COMPREHENSIVE METABOLIC [id number] 06:57:00 Test Item Value Reference Range Comments TOTAL PROTEIN (BEAKER) 6.3 gm/dL 6.0-8.3 (test xdsr=946) ALBUMIN (BEAKER) (test 3.4 g/dL 3.5-5.0 nozc=0835) ALKALINE PHOSPHATASE 165 U/L 40-150 (BEAKER) (test vlkl=989) BILIRUBIN TOTAL (BEAKER) 0.6 mg/dL 0.2-1.2 (test zmso=242) SODIUM (BEAKER) (test 140 meq/L 136-145 ektx=711) POTASSIUM (BEAKER) (test 3.6 meq/L 3.5-5.1 croh=919) CHLORIDE (BEAKER) (test 102 meq/L 98-107 gjjh=192) CO2 (BEAKER) (test 29 meq/L 22-29 xaqv=137) BLOOD UREA NITROGEN 3 mg/dL 7-21 (BEAKER) (test jahf=749) CREATININE (BEAKER) (test 0.55 mg/dL 0.57-1.25 zelg=162) GLUCOSE RANDOM (BEAKER) 89 mg/dL 70-105 (test mjxj=239) CALCIUM (BEAKER) (test 9.2 mg/dL 8.4-10.2 trvf=011) AST (SGOT) (BEAKER) (test 184 U/L 5-34 xycm=550) ALT (SGPT) (BEAKER) (test 156 U/L 6-55 acwx=828) EGFR (BEAKER) (test 173 mL/min/1.73 sq ESTIMATED GFR IS NOT fsnn=4731) m ACCURATE CREATININE CLEARANCE IN PREDICTING GLOMERULAR FILTRATION RATE. ESTIMATED GFR IS NOT APPLICABLE FOR DIALYSIS PATIENTS. HEMOGLOBIN [id number] 09:30:00 Test Item Value Reference Range Comments HEMOGLOBIN A1C (BEAKER) (test ztax=560) 4.9 % 4.3-6.1 COMPREHENSIVE METABOLIC [id number] 05:17:00 Test Item Value Reference Range Comments TOTAL PROTEIN (BEAKER) 6.5 gm/dL 6.0-8.3 (test chzs=197) ALBUMIN (BEAKER) (test 3.6 g/dL 3.5-5.0 jpld=2477) ALKALINE PHOSPHATASE 170 U/L 40-150 (BEAKER) (test updr=662) BILIRUBIN TOTAL (BEAKER) 0.9 mg/dL 0.2-1.2 (test rwar=183) SODIUM (BEAKER) (test 141 meq/L 136-145 vjsd=839) POTASSIUM (BEAKER) (test 3.5 meq/L 3.5-5.1 csrw=391) CHLORIDE (BEAKER) (test 104 meq/L 98-107 zrxk=580) CO2 (BEAKER) (test 26 meq/L 22-29 fvbn=957) BLOOD UREA NITROGEN 4 mg/dL 7-21 (BEAKER) (test fsav=133) CREATININE (BEAKER) (test 0.55 mg/dL 0.57-1.25 hrgo=264) GLUCOSE RANDOM (BEAKER) 89 mg/dL 70-105 (test xwqw=097) CALCIUM (BEAKER) (test 9.3 mg/dL 8.4-10.2 ticl=408) AST (SGOT) (BEAKER) (test 167 U/L 5-34 aqwi=668) ALT (SGPT) (BEAKER) (test 156 U/L 6-55 fzyn=959) EGFR (BEAKER) (test 173 mL/min/1.73 sq ESTIMATED GFR IS NOT vywd=3270) m ACCURATE CREATININE CLEARANCE IN PREDICTING GLOMERULAR FILTRATION RATE. ESTIMATED GFR IS NOT APPLICABLE FOR DIALYSIS PATIENTS. CBC W/PLT COUNT & AUTO [id number] 04:53:00 Test Item Value Reference Range Comments WHITE BLOOD CELL COUNT (BEAKER) (test wows=980) 3.4 K/ L 3.5-10.5 RED BLOOD CELL COUNT (BEAKER) (test yljs=169) 3.45 M/ L 4.63-6.08 HEMOGLOBIN (BEAKER) (test glqr=906) 11.8 GM/DL 13.7-17.5 HEMATOCRIT (BEAKER) (test yhty=916) 34.4 % 40.1-51.0 MEAN CORPUSCULAR VOLUME (BEAKER) (test pqoi=972) 99.7 fL 79.0-92.2 MEAN CORPUSCULAR HEMOGLOBIN (BEAKER) (test 34.2 pg 25.7-32.2 exbk=039) MEAN CORPUSCULAR HEMOGLOBIN CONC (BEAKER) (test 34.3 GM/DL 32.3-36.5 tgus=041) RED CELL DISTRIBUTION WIDTH (BEAKER) (test 12.2 % 11.6-14.4 kzoi=376) PLATELET COUNT (BEAKER) (test demw=555) 175 K/CU MM 150-450 MEAN PLATELET VOLUME (BEAKER) (test bajt=469) 10.3 fL 9.4-12.4 NUCLEATED RED BLOOD CELLS (BEAKER) (test 0 /100 WBC 0-0 zpra=528) NEUTROPHILS RELATIVE PERCENT (BEAKER) (test 55 % nvyh=803) LYMPHOCYTES RELATIVE PERCENT (BEAKER) (test 30 % knvx=774) MONOCYTES RELATIVE PERCENT (BEAKER) (test 11 % swbb=534) EOSINOPHILS RELATIVE PERCENT (BEAKER) (test 3 % hhgn=303) BASOPHILS RELATIVE PERCENT (BEAKER) (test 1 % orox=180) NEUTROPHILS ABSOLUTE COUNT (BEAKER) (test 1.89 K/ L 1.78-5.38 njfh=807) LYMPHOCYTES ABSOLUTE COUNT (BEAKER) (test 1.03 K/ L 1.32-3.57 vjsx=419) MONOCYTES ABSOLUTE COUNT (BEAKER) (test 0.39 K/ L 0.30-0.82 kajk=102) EOSINOPHILS ABSOLUTE COUNT (BEAKER) (test 0.09 K/ L 0.04-0.54 iawp=088) BASOPHILS ABSOLUTE COUNT (BEAKER) (test 0.03 K/ L 0.01-0.08 ukhg=199) IMMATURE GRANULOCYTES-RELATIVE PERCENT (BEAKER) 0 % 0-1 (test alxi=7679) LIPID [id number] 17:30:00 Test Item Value Reference Range Comments TRIGLYCERIDES (BEAKER) (test wqeo=607) 90 mg/dL CHOLESTEROL (BEAKER) (test laac=268) 140 mg/dL HDL CHOLESTEROL (BEAKER) (test rhal=358) 37 mg/dL LDL CHOLESTEROL CALCULATED (BEAKER) (test 85 mg/dL ukqn=327) Triglyceride Reference Range: Low Risk <150 Borderline 150- 199 High Risk 200-499 Very High Risk >=500Cholesterol Reference Range: Low Risk <200 Borderline 200-239 High Risk > 240HDL Cholesterol Reference Range: Low Risk >=60 High Risk <40LDL Cholesterol Reference Range: Optimal <100 Near Optimal 100-129 Borderline 130-159 High 160-189 Very High >=190HEPATITIS C PCR, [id number] 14:57:00 Test Item Value Reference Range Comments HCV RESULT COMPONENT (BEAKER) HCV RNA not detected HCV RNA not detected (test smzx=8279) This test uses a Real-Time Polymerase Chain Reaction (RT-PCR) methodology and was performed using MAR[employer] Ampliprep/MARIANO TaqMan HCV test kit version 2.0 ( [employer]).Reportable range for this assay is 15 - 100,000, 000 IU per mL (1.18 - 8.00 Log IU/mL).RAD, ABDOMEN/KUB, 1 VIEW [id number] 14: 17:00Reason for exam:->abd distensionFINAL REPORT TECHNIQUE: Supine radiographs of the abdomen dated 10/29/2018. HISTORY: Abdominal distention. COMPARISON: None IMPRESSION:No air-filled, dilated loops of bowel to suggest obstruction. No free intraperitoneal air. No abnormal soft tissue mass or calcification. Signed:Nancy Concepcioneport Verified Date/ Time: 10/29/2018 14:17:17 Reading Location: [facility] Radiology Reading Room [id number] 13:28:00 Test Item Value Reference Range Comments RPR SCREEN (BEAKER) (test vqnq=473) Nonreactive Nonreactive [id number] 05:12:00 Test Item Value Reference Range Comments PHOSPHORUS (BEAKER) (test eqbx=323) 2.5 mg/dL 2.3-4.7 COMPREHENSIVE METABOLIC [id number] 05:12:00 Test Item Value Reference Range Comments TOTAL PROTEIN (BEAKER) 6.9 gm/dL 6.0-8.3 (test syld=370) ALBUMIN (BEAKER) (test 3.9 g/dL 3.5-5.0 isls=5946) ALKALINE PHOSPHATASE 200 U/L 40-150 (BEAKER) (test kfhb=857) BILIRUBIN TOTAL (BEAKER) 1.2 mg/dL 0.2-1.2 (test ohhg=070) SODIUM (BEAKER) (test 137 meq/L 136-145 bovq=925) POTASSIUM (BEAKER) (test 3.3 meq/L 3.5-5.1 fpck=715) CHLORIDE (BEAKER) (test 97 meq/L 98-107 yoan=858) CO2 (BEAKER) (test 27 meq/L 22-29 humd=308) BLOOD UREA NITROGEN 3 mg/dL 7-21 (BEAKER) (test fnqa=460) CREATININE (BEAKER) (test 0.57 mg/dL 0.57-1.25 ayjn=700) GLUCOSE RANDOM (BEAKER) 108 mg/dL 70-105 (test sovs=444) CALCIUM (BEAKER) (test 9.4 mg/dL 8.4-10.2 vhga=221) AST (SGOT) (BEAKER) (test 263 U/L 5-34 zrgj=907) ALT (SGPT) (BEAKER) (test 215 U/L 6-55 okhn=891) EGFR (BEAKER) (test 166 mL/min/1.73 sq ESTIMATED GFR IS NOT pcdx=3114) m ACCURATE CREATININE CLEARANCE IN PREDICTING GLOMERULAR FILTRATION RATE. ESTIMATED GFR IS NOT APPLICABLE FOR DIALYSIS PATIENTS. PROTHROMBIN [id number] 04:53:00 Test Item Value Reference Range Comments PROTIME (BEAKER) (test zvqg=660) 16.0 seconds 11.7-14.7 INR (BEAKER) (test nldp=589) 1.3 <=5.9 RECOMMENDED COUMADIN/WARFARIN INR THERAPY RANGESSTANDARD DOSE: 2.0 - 3.0 Includes: PROPHYLAXIS forvenous thrombosis, systemic embolization; TREATMENT for venous thrombosis and/or pulmonary embolus.HIGH RISK: Target INR is 2.5-3.5 for patients with mechanical heart valves.URINALYSIS W/ REFLEX URINE [id number] 18:43:00 Test Item Value Reference Range Comments COLOR (BEAKER) (test mmbw=326) Yellow CLARITY (BEAKER) (test wisp=571) Clear SPECIFIC GRAVITY UA (BEAKER) (test jepj=222) 1.007 1.001-1.035 PH UA (BEAKER) (test xhka=688) 7.5 5.0-8.0 PROTEIN UA (BEAKER) (test lojx=091) 20 mg/dL Negative GLUCOSE UA (BEAKER) (test dyst=881) Negative Negative KETONES UA (BEAKER) (test ogre=955) 20 mg/dL Negative BILIRUBIN UA (BEAKER) (test ivbq=279) Negative Negative BLOOD UA (BEAKER) (test brgp=972) Trace Negative NITRITE UA (BEAKER) (test bgjs=317) Negative Negative LEUKOCYTE ESTERASE UA (BEAKER) (test pqtt=388) Negative Negative UROBILINOGEN UA (BEAKER) (test osme=473) 2.0 mg/dL 0.2-1.0 RBC UA (BEAKER) (test eizd=808) 3 /HPF WBC UA (BEAKER) (test ithi=583) < /HPF MUCUS (BEAKER) (test bmhk=2721) Rare SOURCE(BEAKER) (test nlki=0141) VITAMIN B12 AND [id number] 15:08:00 Test Item Value Reference Range Comments VITAMIN B12 (BEAKER) (test tnrz=374) 1678 pg/mL 213-816 FOLATE (BEAKER) (test nzre=032) 19.4 ng/mL >=7.0 [id number] 14:48:00 Test Item Value Reference Range Comments FERRITIN (BEAKER) (test dhmy=204) 1698 ng/mL 5-275 IRON, TIBC, % SAT. (WITHOUT FERRITIN)[id number] 13:26:00 Test Item Value Reference Range Comments IRON (BEAKER) (test uasn=014) 44.0 ug/dL 40.0-160.0 TOTAL IRON BINDING CAPACITY (BEAKER) (test 186 ug/dL 250-450 ayxr=839) IRON % SATURATION (2) (BEAKER) (test lbzd=5868) 24 % 20-55 HEPATITIS B SURFACE [id number] 13:26:00 Test Item Value Reference Range Comments HEPATITIS B SURFACE ANTIGEN (2) (BEAKER) (test Nonreactive Nonreactive iryk=5055) HEPATITIS C [id number] 13:26:00 Test Item Value Reference Range Comments HEPATITIS C ANTIBODY (BEAKER) (test osnb=984) Nonreactive Nonreactive HIV-1 ANTIGEN WITH HIV-1/2 [id number] 13:26:00 Test Item Value Reference Range Comments HIV-1 ANTIGEN WITH HIV 1\T\2 ANTIBODY (2) Nonreactive Nonreactive (BEAKER) (test yrix=9862) HEPATITIS B SURFACE [id number] 13:19:00 Test Item Value Reference Range Comments HEPATITIS B SURFACE ANTIBODY (BEAKER) (test 34.5 mIU/mL <8.0 pywi=897) HEPATITIS A ANTIBODY, [id number] 13:19:00 Test Item Value Reference Range Comments HEPATITIS A IGM ANTIBODY (BEAKER) (test Nonreactive Nonreactive qvfp=628) HEPATITIS B CORE ANTIBODY, [id number] 13:19:00 Test Item Value Reference Range Comments HEPATITIS B CORE TOTAL ANTIBODY (BEAKER) (test Nonreactive Nonreactive ivgn=862) HEPATITIS A ANTIBODY, [id number] 13:19:00 Test Item Value Reference Range Comments HEPATITIS A IGG ANTIBODY (BEAKER) (test Nonreactive Nonreactive mdly=9663) PROTHROMBIN [id number] 13:00:00 Test Item Value Reference Range Comments PROTIME (BEAKER) (test iudk=470) 15.5 seconds 11.7-14.7 INR (BEAKER) (test eutr=100) 1.2 <=5.9 RECOMMENDED COUMADIN/WARFARIN INR THERAPY RANGESSTANDARD DOSE: 2.0 - 3.0 Includes: PROPHYLAXIS forvenous thrombosis, systemic embolization; TREATMENT for venous thrombosis and/or pulmonary embolus.HIGH RISK: Target INR is 2.5-3.5 for patients with mechanical heart valves.[id number] 03:31:00 Test Item Value Reference Range Comments PHOSPHORUS (BEAKER) (test eakj=318) 3.5 mg/dL 2.3-4.7 [id number] 03:31:00 Test Item Value Reference Range Comments MAGNESIUM (BEAKER) (test neld=100) 1.5 mg/dL 1.6-2.6 COMPREHENSIVE METABOLIC [id number] 03:31:00 Test Item Value Reference Range Comments TOTAL PROTEIN (BEAKER) 6.5 gm/dL 6.0-8.3 (test olit=308) ALBUMIN (BEAKER) (test 3.7 g/dL 3.5-5.0 enfx=5343) ALKALINE PHOSPHATASE 200 U/L 40-150 (BEAKER) (test jghb=449) BILIRUBIN TOTAL (BEAKER) 0.8 mg/dL 0.2-1.2 (test bccd=972) SODIUM (BEAKER) (test 142 meq/L 136-145 ckxg=371) POTASSIUM (BEAKER) (test 3.1 meq/L 3.5-5.1 ofpp=945) CHLORIDE (BEAKER) (test 103 meq/L 98-107 mpzi=960) CO2 (BEAKER) (test 24 meq/L 22-29 kmzb=101) BLOOD UREA NITROGEN 4 mg/dL 7-21 (BEAKER) (test eabw=671) CREATININE (BEAKER) (test 0.55 mg/dL 0.57-1.25 ulaj=675) GLUCOSE RANDOM (BEAKER) 100 mg/dL 70-105 (test eopf=421) CALCIUM (BEAKER) (test 8.5 mg/dL 8.4-10.2 wone=313) AST (SGOT) (BEAKER) (test 318 U/L 5-34 kech=682) ALT (SGPT) (BEAKER) (test 244 U/L 6-55 dxrc=272) EGFR (BEAKER) (test 173 mL/min/1.73 sq ESTIMATED GFR IS NOT roiw=7405) m ACCURATE CREATININE CLEARANCE IN PREDICTING GLOMERULAR FILTRATION RATE. ESTIMATED GFR IS NOT APPLICABLE FOR DIALYSIS PATIENTS. CBC W/PLT COUNT & AUTO [id number] 03:03:00 Test Item Value Reference Range Comments WHITE BLOOD CELL COUNT (BEAKER) (test bcsm=991) 4.2 K/ L 3.5-10.5 RED BLOOD CELL COUNT (BEAKER) (test qjna=972) 3.61 M/ L 4.63-6.08 HEMOGLOBIN (BEAKER) (test pmoh=076) 12.3 GM/DL 13.7-17.5 HEMATOCRIT (BEAKER) (test rate=472) 35.9 % 40.1-51.0 MEAN CORPUSCULAR VOLUME (BEAKER) (test juji=700) 99.4 fL 79.0-92.2 MEAN CORPUSCULAR HEMOGLOBIN (BEAKER) (test 34.1 pg 25.7-32.2 quci=826) MEAN CORPUSCULAR HEMOGLOBIN CONC (BEAKER) (test 34.3 GM/DL 32.3-36.5 vrkm=518) RED CELL DISTRIBUTION WIDTH (BEAKER) (test 12.3 % 11.6-14.4 lape=159) PLATELET COUNT (BEAKER) (test xrjs=254) 122 K/CU MM 150-450 MEAN PLATELET VOLUME (BEAKER) (test ykhh=585) 9.8 fL 9.4-12.4 NUCLEATED RED BLOOD CELLS (BEAKER) (test 0 /100 WBC 0-0 tnav=937) NEUTROPHILS RELATIVE PERCENT (BEAKER) (test 70 % juum=722) LYMPHOCYTES RELATIVE PERCENT (BEAKER) (test 17 % oriv=480) MONOCYTES RELATIVE PERCENT (BEAKER) (test 11 % wtbx=372) EOSINOPHILS RELATIVE PERCENT (BEAKER) (test 1 % inzu=394) BASOPHILS RELATIVE PERCENT (BEAKER) (test 1 % gibj=113) NEUTROPHILS ABSOLUTE COUNT (BEAKER) (test 2.94 K/ L 1.78-5.38 ltqg=028) LYMPHOCYTES ABSOLUTE COUNT (BEAKER) (test 0.73 K/ L 1.32-3.57 jgnx=461) MONOCYTES ABSOLUTE COUNT (BEAKER) (test 0.45 K/ L 0.30-0.82 gmsk=807) EOSINOPHILS ABSOLUTE COUNT (BEAKER) (test 0.04 K/ L 0.04-0.54 vxut=730) BASOPHILS ABSOLUTE COUNT (BEAKER) (test 0.02 K/ L 0.01-0.08 hgfo=783) IMMATURE GRANULOCYTES-RELATIVE PERCENT (BEAKER) 1 % 0-1 (test pmii=0003) POCT-GLUCOSE [id number] 12:15:00 Test Item Value Reference Range Comments POC-GLUCOSE METER (BEAKER) 99 mg/dL 70-110 TESTED AT [facility] [address] (test wlrb=6768) [facility] [address] [id number] 06:15:00 Test Item Value Reference Range Comments MAGNESIUM (BEAKER) (test rmcl=857) 1.8 mg/dL 1.6-2.6 COMPREHENSIVE METABOLIC [id number] 06:15:00 Test Item Value Reference Range Comments TOTAL PROTEIN (BEAKER) 6.6 gm/dL 6.0-8.3 (test isnc=098) ALBUMIN (BEAKER) (test 3.6 g/dL 3.5-5.0 ijrp=7015) ALKALINE PHOSPHATASE 149 U/L 40-150 (BEAKER) (test xxaz=566) BILIRUBIN TOTAL (BEAKER) 0.8 mg/dL 0.2-1.2 (test basw=942) SODIUM (BEAKER) (test 135 meq/L 136-145 pvfm=945) POTASSIUM (BEAKER) (test 3.6 meq/L 3.5-5.1 cmqg=795) CHLORIDE (BEAKER) (test 98 meq/L 98-107 jcyr=420) CO2 (BEAKER) (test 26 meq/L 22-29 nucv=868) BLOOD UREA NITROGEN 8 mg/dL 7-21 (BEAKER) (test rjzr=463) CREATININE (BEAKER) (test 0.57 mg/dL 0.57-1.25 yghq=565) GLUCOSE RANDOM (BEAKER) 100 mg/dL 70-105 (test aqhs=083) CALCIUM (BEAKER) (test 9.5 mg/dL 8.4-10.2 myqc=468) AST (SGOT) (BEAKER) (test 155 U/L 5-34 pixc=467) ALT (SGPT) (BEAKER) (test 151 U/L 6-55 bcrv=321) EGFR (BEAKER) (test 166 mL/min/1.73 sq ESTIMATED GFR IS NOT wguu=0989) m ACCURATE CREATININE CLEARANCE IN PREDICTING GLOMERULAR FILTRATION RATE. ESTIMATED GFR IS NOT APPLICABLE FOR DIALYSIS PATIENTS. CBC W/PLT COUNT & AUTO [id number] 05:30:00 Test Item Value Reference Range Comments WHITE BLOOD CELL COUNT (BEAKER) (test ukfc=660) 5.1 K/ L 3.5-10.5 RED BLOOD CELL COUNT (BEAKER) (test nevw=297) 3.81 M/ L 4.63-6.08 HEMOGLOBIN (BEAKER) (test tuxd=982) 13.1 GM/DL 13.7-17.5 HEMATOCRIT (BEAKER) (test xuxd=348) 37.6 % 40.1-51.0 MEAN CORPUSCULAR VOLUME (BEAKER) (test eonl=274) 98.7 fL 79.0-92.2 MEAN CORPUSCULAR HEMOGLOBIN (BEAKER) (test 34.4 pg 25.7-32.2 xzlw=762) MEAN CORPUSCULAR HEMOGLOBIN CONC (BEAKER) (test 34.8 GM/DL 32.3-36.5 xdgi=129) RED CELL DISTRIBUTION WIDTH (BEAKER) (test 11.5 % 11.6-14.4 algo=349) PLATELET COUNT (BEAKER) (test krto=123) 152 K/CU MM 150-450 MEAN PLATELET VOLUME (BEAKER) (test anzp=842) 10.2 fL 9.4-12.4 NUCLEATED RED BLOOD CELLS (BEAKER) (test 0 /100 WBC 0-0 mvxn=691) NEUTROPHILS RELATIVE PERCENT (BEAKER) (test 71 % xrjd=533) LYMPHOCYTES RELATIVE PERCENT (BEAKER) (test 14 % xtgy=081) MONOCYTES RELATIVE PERCENT (BEAKER) (test 11 % jtyl=087) EOSINOPHILS RELATIVE PERCENT (BEAKER) (test 2 % vwyk=863) BASOPHILS RELATIVE PERCENT (BEAKER) (test 1 % bgpf=998) NEUTROPHILS ABSOLUTE COUNT (BEAKER) (test 3.66 K/ L 1.78-5.38 iwsa=824) LYMPHOCYTES ABSOLUTE COUNT (BEAKER) (test 0.71 K/ L 1.32-3.57 ebxg=693) MONOCYTES ABSOLUTE COUNT (BEAKER) (test 0.58 K/ L 0.30-0.82 axhx=839) EOSINOPHILS ABSOLUTE COUNT (BEAKER) (test 0.10 K/ L 0.04-0.54 evno=498) BASOPHILS ABSOLUTE COUNT (BEAKER) (test 0.04 K/ L 0.01-0.08 wolp=215) IMMATURE GRANULOCYTES-RELATIVE PERCENT (BEAKER) 1 % 0-1 (test hcvu=2746) POCT-GLUCOSE [id number] 11:54:00 Test Item Value Reference Range Comments POC-GLUCOSE METER (BEAKER) 83 mg/dL 70-110 TESTED AT [facility] [address] [facility] (test mtvt=9998) [facility] [address] [id number] 05:54:00 Test Item Value Reference Range Comments PHOSPHORUS (BEAKER) (test wnfw=083) 2.3 mg/dL 2.3-4.7 [id number] 05:54:00 Test Item Value Reference Range Comments MAGNESIUM (BEAKER) (test kksu=920) 2.0 mg/dL 1.6-2.6 COMPREHENSIVE METABOLIC [id number] 05:54:00 Test Item Value Reference Range Comments TOTAL PROTEIN (BEAKER) 6.0 gm/dL 6.0-8.3 (test gjfu=973) ALBUMIN (BEAKER) (test 3.2 g/dL 3.5-5.0 tfsi=3439) ALKALINE PHOSPHATASE 134 U/L 40-150 (BEAKER) (test zkgs=870) BILIRUBIN TOTAL (BEAKER) 1.1 mg/dL 0.2-1.2 (test apsn=434) SODIUM (BEAKER) (test 134 meq/L 136-145 grvr=389) POTASSIUM (BEAKER) (test 3.6 meq/L 3.5-5.1 guwb=653) CHLORIDE (BEAKER) (test 100 meq/L 98-107 dfuc=302) CO2 (BEAKER) (test 26 meq/L 22-29 rfsn=738) BLOOD UREA NITROGEN 4 mg/dL 7-21 (BEAKER) (test xpex=405) CREATININE (BEAKER) (test 0.54 mg/dL 0.57-1.25 visf=926) GLUCOSE RANDOM (BEAKER) 141 mg/dL 70-105 (test zcsy=260) CALCIUM (BEAKER) (test 8.8 mg/dL 8.4-10.2 sgvu=716) AST (SGOT) (BEAKER) (test 183 U/L 5-34 yzhn=411) ALT (SGPT) (BEAKER) (test 149 U/L 6-55 vcui=470) EGFR (BEAKER) (test 176 mL/min/1.73 sq ESTIMATED GFR IS NOT tsag=2078) m ACCURATE CREATININE CLEARANCE IN PREDICTING GLOMERULAR FILTRATION RATE. ESTIMATED GFR IS NOT APPLICABLE FOR DIALYSIS PATIENTS. LACTIC ACID, [id number] 05:35:00 Test Item Value Reference Range Comments LACTATE BLOOD VENOUS (2) (BEAKER) (test 1.0 mmol/L 0.5-2.2 kxse=1229) CBC W/PLT COUNT & AUTO [id number] 05:23:00 Test Item Value Reference Range Comments WHITE BLOOD CELL COUNT (BEAKER) (test kuem=678) 5.0 K/ L 3.5-10.5 RED BLOOD CELL COUNT (BEAKER) (test ltss=651) 3.88 M/ L 4.63-6.08 HEMOGLOBIN (BEAKER) (test ivfk=406) 13.0 GM/DL 13.7-17.5 HEMATOCRIT (BEAKER) (test xnlb=939) 38.5 % 40.1-51.0 MEAN CORPUSCULAR VOLUME (BEAKER) (test nnmm=492) 99.2 fL 79.0-92.2 MEAN CORPUSCULAR HEMOGLOBIN (BEAKER) (test 33.5 pg 25.7-32.2 wzju=574) MEAN CORPUSCULAR HEMOGLOBIN CONC (BEAKER) (test 33.8 GM/DL 32.3-36.5 abwp=312) RED CELL DISTRIBUTION WIDTH (BEAKER) (test 11.6 % 11.6-14.4 gbzt=185) PLATELET COUNT (BEAKER) (test cuzg=459) 113 K/CU MM 150-450 MEAN PLATELET VOLUME (BEAKER) (test pelo=170) 10.7 fL 9.4-12.4 NUCLEATED RED BLOOD CELLS (BEAKER) (test 0 /100 WBC 0-0 dioj=103) NEUTROPHILS RELATIVE PERCENT (BEAKER) (test 72 % xrpx=783) LYMPHOCYTES RELATIVE PERCENT (BEAKER) (test 15 % mfhc=668) MONOCYTES RELATIVE PERCENT (BEAKER) (test 10 % ydqp=562) EOSINOPHILS RELATIVE PERCENT (BEAKER) (test 2 % nnir=968) BASOPHILS RELATIVE PERCENT (BEAKER) (test 1 % jrkh=121) NEUTROPHILS ABSOLUTE COUNT (BEAKER) (test 3.56 K/ L 1.78-5.38 bpxy=642) LYMPHOCYTES ABSOLUTE COUNT (BEAKER) (test 0.76 K/ L 1.32-3.57 wdnq=805) MONOCYTES ABSOLUTE COUNT (BEAKER) (test 0.49 K/ L 0.30-0.82 mpbm=513) EOSINOPHILS ABSOLUTE COUNT (BEAKER) (test 0.10 K/ L 0.04-0.54 iyzs=236) BASOPHILS ABSOLUTE COUNT (BEAKER) (test 0.04 K/ L 0.01-0.08 rvza=669) IMMATURE GRANULOCYTES-RELATIVE PERCENT (BEAKER) 1 % 0-1 (test eamm=1725) POCT-GLUCOSE [id number] 18:44:00 Test Item Value Reference Range Comments POC-GLUCOSE METER (BEAKER) 100 mg/dL 70-110 TESTED AT [facility] [address] (test lhii=3053) [facility] [address] [id number] 17:58:00 Test Item Value Reference Range Comments PHOSPHORUS (BEAKER) (test jznm=247) 2.3 mg/dL 2.3-4.7 [id number] 17:58:00 Test Item Value Reference Range Comments MAGNESIUM (BEAKER) (test yufm=363) 1.8 mg/dL 1.6-2.6 BASIC METABOLIC [id number] 17:58:00 Test Item Value Reference Range Comments SODIUM (BEAKER) (test 137 meq/L 136-145 olkc=284) POTASSIUM (BEAKER) (test 3.6 meq/L 3.5-5.1 sbex=953) CHLORIDE (BEAKER) (test 102 meq/L 98-107 jpli=493) CO2 (BEAKER) (test 26 meq/L 22-29 gaqt=710) BLOOD UREA NITROGEN 4 mg/dL 7-21 (BEAKER) (test qobo=812) CREATININE (BEAKER) (test 0.54 mg/dL 0.57-1.25 mkwu=060) GLUCOSE RANDOM (BEAKER) 123 mg/dL 70-105 (test etbv=155) CALCIUM (BEAKER) (test 8.7 mg/dL 8.4-10.2 uehm=092) EGFR (BEAKER) (test 177 mL/min/1.73 sq m ESTIMATED GFR IS NOT xest=5375) ACCURATE CREATININE CLEARANCE IN PREDICTING GLOMERULAR FILTRATION RATE. ESTIMATED GFR IS NOT APPLICABLE FOR DIALYSIS PATIENTS. [id number] 16:55:00 Test Item Value Reference Range Comments MAGNESIUM (BEAKER) (test 1.6 mg/dL 1.6-2.6 Specimen slightly hemolyzed rykq=852) [id number] 16:55:00 Test Item Value Reference Range Comments PHOSPHORUS (BEAKER) (test 2.3 mg/dL 2.3-4.7 Specimen slightly hemolyzed yvft=544) BASIC METABOLIC [id number] 16:55:00 Test Item Value Reference Range Comments SODIUM (BEAKER) (test 138 meq/L 136-145 tztu=150) POTASSIUM (BEAKER) (test 3.7 meq/L 3.5-5.1 Specimen slightly wmga=800) hemolyzed CHLORIDE (BEAKER) (test 105 meq/L 98-107 diwe=398) CO2 (BEAKER) (test 23 meq/L 22-29 trkq=913) BLOOD UREA NITROGEN 4 mg/dL 7-21 (BEAKER) (test cbom=987) CREATININE (BEAKER) (test 0.51 mg/dL 0.57-1.25 Specimen slightly ykzo=741) hemolyzed GLUCOSE RANDOM (BEAKER) 99 mg/dL 70-105 (test zjpj=969) CALCIUM (BEAKER) (test 8.0 mg/dL 8.4-10.2 pidt=254) EGFR (BEAKER) (test 190 mL/min/1.73 sq m ESTIMATED GFR IS NOT qzoc=0941) ACCURATE CREATININE CLEARANCE IN PREDICTING GLOMERULAR FILTRATION RATE. ESTIMATED GFR IS NOT APPLICABLE FOR DIALYSIS PATIENTS. POCT-GLUCOSE [id number] 12:41:00 Test Item Value Reference Range Comments POC-GLUCOSE METER (BEAKER) 100 mg/dL 70-110 TESTED AT [facility] [address] [facility] (test vqsn=7369) [facility] [address] POCT-GLUCOSE [id number] 08:07:00 Test Item Value Reference Range Comments POC-GLUCOSE METER (BEAKER) 99 mg/dL 70-110 TESTED AT [facility] [address] [facility] (test qkzb=1052) [facility] [address] U/S, ABDOMINAL, [id number] 08:05:00Abdomen limited area? Add comment if clarification [...] Verified Date /Time: 09/30/2018 08:05:48 Reading Location: [facility] [id number] Ultrasound Reading Room [id number] 07:23:00 Test Item Value Reference Range Comments PHOSPHORUS (BEAKER) (test zyjb=127) 1.2 mg/dL 2.3-4.7 [id number] 07:11:00 Test Item Value Reference Range Comments MAGNESIUM (BEAKER) (test uzqd=137) 2.3 mg/dL 1.6-2.6 COMPREHENSIVE METABOLIC [id number] 07:11:00 Test Item Value Reference Range Comments TOTAL PROTEIN (BEAKER) 5.8 gm/dL 6.0-8.3 (test otjx=367) ALBUMIN (BEAKER) (test 3.1 g/dL 3.5-5.0 cgiv=1927) ALKALINE PHOSPHATASE 141 U/L 40-150 (BEAKER) (test uluz=659) BILIRUBIN TOTAL (BEAKER) 1.1 mg/dL 0.2-1.2 (test kuqa=319) SODIUM (BEAKER) (test 135 meq/L 136-145 owlw=630) POTASSIUM (BEAKER) (test 3.7 meq/L 3.5-5.1 sscp=155) CHLORIDE (BEAKER) (test 104 meq/L 98-107 pbpw=753) CO2 (BEAKER) (test 24 meq/L 22-29 ncge=215) BLOOD UREA NITROGEN 5 mg/dL 7-21 (BEAKER) (test tryv=225) CREATININE (BEAKER) (test 0.39 mg/dL 0.57-1.25 xjfb=233) GLUCOSE RANDOM (BEAKER) 114 mg/dL 70-105 (test ltnv=560) CALCIUM (BEAKER) (test 8.3 mg/dL 8.4-10.2 dwii=427) AST (SGOT) (BEAKER) (test 354 U/L 5-34 kxog=688) ALT (SGPT) (BEAKER) (test 188 U/L 6-55 jotb=041) EGFR (BEAKER) (test 258 mL/min/1.73 sq ESTIMATED GFR IS NOT zqvs=0340) m ACCURATE CREATININE CLEARANCE IN PREDICTING GLOMERULAR FILTRATION RATE. ESTIMATED GFR IS NOT APPLICABLE FOR DIALYSIS PATIENTS. LACTIC ACID, [id number] 04:07:00 Test Item Value Reference Range Comments LACTATE BLOOD VENOUS (2) 0.8 mmol/L 0.5-2.2 Specimen slightly hemolyzed (BEAKER) (test cbdm=3053) CBC W/PLT COUNT & AUTO [id number] 04:00:00 Test Item Value Reference Range Comments WHITE BLOOD CELL COUNT (BEAKER) (test pnfv=842) 6.1 K/ L 3.5-10.5 RED BLOOD CELL COUNT (BEAKER) (test icuc=824) 3.87 M/ L 4.63-6.08 HEMOGLOBIN (BEAKER) (test ddfx=865) 13.3 GM/DL 13.7-17.5 HEMATOCRIT (BEAKER) (test xtvf=164) 39.1 % 40.1-51.0 MEAN CORPUSCULAR VOLUME (BEAKER) (test zhxz=022) 101.0 fL 79.0-92.2 MEAN CORPUSCULAR HEMOGLOBIN (BEAKER) (test 34.4 pg 25.7-32.2 ielr=356) MEAN CORPUSCULAR HEMOGLOBIN CONC (BEAKER) (test 34.0 GM/DL 32.3-36.5 uxtr=558) RED CELL DISTRIBUTION WIDTH (BEAKER) (test 12.1 % 11.6-14.4 crdl=344) PLATELET COUNT (BEAKER) (test bnat=558) 105 K/CU MM 150-450 MEAN PLATELET VOLUME (BEAKER) (test ekzy=285) 10.4 fL 9.4-12.4 NUCLEATED RED BLOOD CELLS (BEAKER) (test 0 /100 WBC 0-0 hmbq=673) NEUTROPHILS RELATIVE PERCENT (BEAKER) (test 74 % rtyn=556) LYMPHOCYTES RELATIVE PERCENT (BEAKER) (test 14 % vqrs=969) MONOCYTES RELATIVE PERCENT (BEAKER) (test 10 % ghdv=577) EOSINOPHILS RELATIVE PERCENT (BEAKER) (test 1 % hkju=755) BASOPHILS RELATIVE PERCENT (BEAKER) (test 1 % apmw=217) NEUTROPHILS ABSOLUTE COUNT (BEAKER) (test 4.52 K/ L 1.78-5.38 kelo=183) LYMPHOCYTES ABSOLUTE COUNT (BEAKER) (test 0.84 K/ L 1.32-3.57 ucff=164) MONOCYTES ABSOLUTE COUNT (BEAKER) (test 0.62 K/ L 0.30-0.82 btgy=593) EOSINOPHILS ABSOLUTE COUNT (BEAKER) (test 0.06 K/ L 0.04-0.54 qkjg=436) BASOPHILS ABSOLUTE COUNT (BEAKER) (test 0.03 K/ L 0.01-0.08 uqzg=834) IMMATURE GRANULOCYTES-RELATIVE PERCENT (BEAKER) 0 % 0-1 (test glrg=7218) [id number] 01:32:00 Test Item Value Reference Range Comments PROCALCITONIN (BEAKER) (test njbj=1995) 0.48 ng/mL <0.05 SEPSIS RISK (ng/mL)Low: 0.05-0.50Intermediate: 0.51-2.00High: & gt;=2.01BASIC METABOLIC [id number] 00:58:00 Test Item Value Reference Range Comments SODIUM (BEAKER) (test 135 meq/L 136-145 dfrp=060) POTASSIUM (BEAKER) (test 3.4 meq/L 3.5-5.1 ugtl=895) CHLORIDE (BEAKER) (test 104 meq/L 98-107 auyg=089) CO2 (BEAKER) (test 22 meq/L 22-29 zosw=944) BLOOD UREA NITROGEN 7 mg/dL 7-21 (BEAKER) (test nyrj=041) CREATININE (BEAKER) (test 0.55 mg/dL 0.57-1.25 cclm=811) GLUCOSE RANDOM (BEAKER) 113 mg/dL 70-105 (test rqay=331) CALCIUM (BEAKER) (test 8.4 mg/dL 8.4-10.2 eowd=578) EGFR (BEAKER) (test 174 mL/min/1.73 sq m ESTIMATED GFR IS NOT reds=1440) ACCURATE CREATININE CLEARANCE IN PREDICTING GLOMERULAR FILTRATION RATE. ESTIMATED GFR IS NOT APPLICABLE FOR DIALYSIS PATIENTS. [id number] 00:57:00 Test Item Value Reference Range Comments MAGNESIUM (BEAKER) (test covs=211) 1.5 mg/dL 1.6-2.6 LACTIC ACID, [id number] 00:37:00 Test Item Value Reference Range Comments LACTATE BLOOD VENOUS (2) 0.7 mmol/L 0.5-2.2 Specimen moderately hemolyzed (BEAKER) (test svni=0490) POCT-GLUCOSE [id number] 00:25:00 Test Item Value Reference Range Comments POC-GLUCOSE METER (BEAKER) 101 mg/dL 70-110 TESTED AT [address] (test vdcv=3918) [place] [id number] POCT-GLUCOSE [id number] 18:32:00 Test Item Value Reference Range Comments POC-GLUCOSE METER (BEAKER) 76 mg/dL 70-110 TESTED AT [address] (test npym=0322) [place] [address] [id number] 15:15:00 Test Item Value Reference Range Comments POTASSIUM (BEAKER) (test ndih=127) 3.4 meq/L 3.5-5.1 [id number] 15:15:00 Test Item Value Reference Range Comments MAGNESIUM (BEAKER) (test gemm=721) 2.1 mg/dL 1.6-2.6 CT, [id number] 12:38:00FINAL REPORT CT abdomen with and without [...] Verified Date/Time: 09/29/2018 12:38:07 Reading Location : [address] Consult Reading Room POCT-GLUCOSE [id number] 11:49:00 Test Item Value Reference Range Comments POC-GLUCOSE METER (BEAKER) 83 mg/dL 70-110 TESTED AT [facility] [address] [place] [address] (test hbpq=0230) [facility] [address] [id number] 10:49:00 Test Item Value Reference Range Comments TRIGLYCERIDES (BEAKER) (test 71 mg/dL Specimen slightly hemolyzed ibeq=786) TRIGLYCERIDE REFERENCE RANGELow Risk <150Borderline Risk 150-199High Risk 200-499Very High Risk>=[id number] 05:09:00 Test Item Value Reference Range Comments LIPASE (BEAKER) (test aaog=320) > U/L 8-78 [id number] 04:35:00 Test Item Value Reference Range Comments MAGNESIUM (BEAKER) (test 1.6 mg/dL 1.6-2.6 Specimen slightly hemolyzed rmwt=364) [id number] 04:35:00 Test Item Value Reference Range Comments PHOSPHORUS (BEAKER) (test 3.2 mg/dL 2.3-4.7 Specimen slightly hemolyzed pekb=214) COMPREHENSIVE METABOLIC [id number] 04:35:00 Test Item Value Reference Range Comments TOTAL PROTEIN (BEAKER) 6.8 gm/dL 6.0-8.3 Specimen slightly (test qoef=103) hemolyzed ALBUMIN (BEAKER) (test 3.8 g/dL 3.5-5.0 Specimen slightly jyuo=9343) hemolyzed ALKALINE PHOSPHATASE 130 U/L 40-150 (BEAKER) (test pupz=686) BILIRUBIN TOTAL (BEAKER) 1.7 mg/dL 0.2-1.2 Specimen slightly (test whbo=176) hemolyzed SODIUM (BEAKER) (test 138 meq/L 136-145 zuhe=630) POTASSIUM (BEAKER) (test 3.7 meq/L 3.5-5.1 Specimen slightly iwrv=140) hemolyzed CHLORIDE (BEAKER) (test 103 meq/L 98-107 cwcx=314) CO2 (BEAKER) (test 17 meq/L 22-29 feum=098) BLOOD UREA NITROGEN 9 mg/dL 7-21 (BEAKER) (test gsos=249) CREATININE (BEAKER) (test 0.65 mg/dL 0.57-1.25 Specimen slightly uwix=001) hemolyzed GLUCOSE RANDOM (BEAKER) 103 mg/dL 70-105 (test vxjh=918) CALCIUM (BEAKER) (test 8.7 mg/dL 8.4-10.2 cmhx=243) AST (SGOT) (BEAKER) (test 151 U/L 5-34 Specimen slightly vaix=695) hemolyzed ALT (SGPT) (BEAKER) (test 143 U/L 6-55 Specimen slightly uyba=419) hemolyzed EGFR (BEAKER) (test 143 mL/min/1.73 sq ESTIMATED GFR IS NOT jyzm=0634) m ACCURATE CREATININE CLEARANCE IN PREDICTING GLOMERULAR FILTRATION RATE. ESTIMATED GFR IS NOT APPLICABLE FOR DIALYSIS PATIENTS. PROTHROMBIN [id number] 04:34:00 Test Item Value Reference Range Comments PROTIME (BEAKER) (test cifv=121) 14.6 seconds 11.7-14.7 INR (BEAKER) (test wvuz=618) 1.1 <=5.9 RECOMMENDED COUMADIN/WARFARIN INR THERAPY RANGESSTANDARD DOSE: 2.0 - 3.0 Includes: PROPHYLAXIS forvenous thrombosis, systemic embolization; TREATMENT for venous thrombosis and/or pulmonary embolus.HIGH RISK: Target INR is 2.5-3.5 for patients with mechanical heart valves.CBC W/PLT COUNT & AUTO [id number] 04:09:00 Test Item Value Reference Range Comments WHITE BLOOD CELL COUNT (BEAKER) (test jwxw=430) 6.2 K/ L 3.5-10.5 RED BLOOD CELL COUNT (BEAKER) (test bvic=954) 4.33 M/ L 4.63-6.08 HEMOGLOBIN (BEAKER) (test hbqm=432) 15.0 GM/DL 13.7-17.5 HEMATOCRIT (BEAKER) (test sswd=524) 43.2 % 40.1-51.0 MEAN CORPUSCULAR VOLUME (BEAKER) (test qgio=616) 99.8 fL 79.0-92.2 MEAN CORPUSCULAR HEMOGLOBIN (BEAKER) (test 34.6 pg 25.7-32.2 zmxz=221) MEAN CORPUSCULAR HEMOGLOBIN CONC (BEAKER) (test 34.7 GM/DL 32.3-36.5 uhia=162) RED CELL DISTRIBUTION WIDTH (BEAKER) (test 12.4 % 11.6-14.4 sexv=547) PLATELET COUNT (BEAKER) (test evis=773) 160 K/CU MM 150-450 MEAN PLATELET VOLUME (BEAKER) (test yvvl=471) 10.4 fL 9.4-12.4 NUCLEATED RED BLOOD CELLS (BEAKER) (test 0 /100 WBC 0-0 dctm=090) NEUTROPHILS RELATIVE PERCENT (BEAKER) (test 81 % lcoa=346) LYMPHOCYTES RELATIVE PERCENT (BEAKER) (test 7 % ktmc=325) MONOCYTES RELATIVE PERCENT (BEAKER) (test 10 % luwy=971) EOSINOPHILS RELATIVE PERCENT (BEAKER) (test 0 % rqzr=514) BASOPHILS RELATIVE PERCENT (BEAKER) (test 1 % fvup=127) NEUTROPHILS ABSOLUTE COUNT (BEAKER) (test 5.01 K/ L 1.78-5.38 nspl=485) LYMPHOCYTES ABSOLUTE COUNT (BEAKER) (test 0.44 K/ L 1.32-3.57 pliu=139) MONOCYTES ABSOLUTE COUNT (BEAKER) (test 0.62 K/ L 0.30-0.82 xcit=114) EOSINOPHILS ABSOLUTE COUNT (BEAKER) (test 0.01 K/ L 0.04-0.54 bshp=243) BASOPHILS ABSOLUTE COUNT (BEAKER) (test 0.03 K/ L 0.01-0.08 nfkv=351) IMMATURE GRANULOCYTES-RELATIVE PERCENT (BEAKER) 1 % 0-1 (test hbix=5440)
[2019-07-15] MEDS ORDERED: MORPHINE 4 MG/ML SYR ONE (11:33)
[2019-07-15] MEDS ORDERED: NA CHLORIDE 0.9% 1,000 ML ONE (11:33)
[2019-07-15] MEDS ORDERED: ONDANSETRON 4 MG/2 ML VIAL ONE (11:33)
[2019-07-15 11:43] LABS: Absolute Lymphocytes (CBC) 1.3 K/uL (0.7-4.9); Basophils % 0.4 % (0-1.3); Hematocrit 44.9 % (39.6-49.0); Lymphocytes % 21.6 % (15.3-44.8); MPV 8.7 fL (7.6-11.3); RBC Red Blood Cell Count 5.13 M/uL (4.33-5.43)
[2019-07-15 11:46] LABS: Protime INR 1.06
[2019-07-15 11:55] LABS: ALT/SGPT 42 U/L (12-78); AST/SGOT 26 U/L (15-37); Albumin 4.5 g/dL (3.4-5.0); Alkaline Phosphatase 96 U/L (45-117); BUN Blood Urea Nitrogen 11 mg/dL (7-18); Bicarbonate 29 mmol/L (21-32); Bilirubin Direct 0.1 mg/dL (0-0.2); Bilirubin Total 0.4 mg/dL (0.2-1.0); Glucose Level 89 mg/dL (74-106); Lipase 39 U/L (73-393); Potassium 4.3 mmol/L (3.5-5.1); Protein, Total 8.6 g/dL (6.4-8.2); Sodium Level 140 mmol/L (136-145)
[2019-07-15] MEDS ORDERED: MEPERIDINE HCL 25 MG/0.5 ML ONE ×2 (12:44→14:15)
--- NOTE | 2019-07-15 12:49 | RAD REPORT ---
EXAM DESCRIPTION: CT - Abdomen Pelvis W Contrast - 07/15/2019 12:12 pm CLINICAL HISTORY: melana and hematochezia;Abd pain COMPARISON: CT study June 30 TECHNIQUE: Biphasic, helical CT imaging of the abdomen and pelvis was performed following 100 ml non -ionic IV contrast. No oral contrast. All CT scans are performed using dose optimization technique as appropriate and may include automated exposure control or mA/KV adjustment according to patient size. FINDINGS: No suspicious findings in the lung bases. Small hiatal hernia is present. The liver and spleen show no focal findings or changes from June 30. Gallbladder and biliary tree are similar as well. Gallstones and duct stones can be occult on CT imaging. Prominence of the bilia ry tree is similar to the June 30 CT study and June 19 MRCP. No new mass of the pancreatic parenchyma. No pseudocyst seen. There does appear to be some residual c ongestion or edema in the peripancreatic fat near the head. Prior imaging reported a mild pancreatiti s. Correlation can be made with lab values. Symmetric renal function is seen with no hydronephrosis or suspicious renal mass. No pyelonephritis o r acute parenchymal process. Nonobstructing calculi are present. No urinary bladder abnormality. No a drenal abnormalities. Gastric sullivan are prominent. Stomach is difficult to assess in the absence of gastric lumen content. No gross change from June 30. Small bowel loops are not dilated. No suspicion for appendicitis. M oderately large stool volume fills but does not dilate the entirety of the colon. No focal area of co abril wall thickening or mass identifiable. No free air, free fluid or inflammatory stranding. No hernia, mass or bulky lymphadenopathy. No suspicious bony findings. IMPRESSION: No bowel obstruction, free air or surgically emergent finding. Minimal congestion or edema remains in the fatty tissues near the pancreatic head. Prior imaging on 16 show remnant mild pancreatitis. Correlation is needed with any abnormal pancreatic lab luciana ues. Biliary tree is prominent but stable. The duct stones and gallstones can be occult on CT imaging. Large stool volume filling the entirety of the colon without abnormal dilatation, focal wall thickeni ng or mass. Prominent gastric sullivan. Assessment is limited due to the absence of gastric lumen content. Gastriti s cannot be excluded.
[2019-07-15] MEDS ORDERED: PANTOPRAZOLE 40 MG INJ ONE (13:08)
--- NOTE | 2019-07-15 13:14 | ER ---
Nurse's Notes [facility] Name: Jonathan Gutierrez Age: 33 yrs Sex: Male : 1985 Arrival Date: 07/15/2019 Time: 10:45 Bed 4 Private MD: Diagnosis: Upper abdominal pain, unspecified;Alcohol-induced chronic pancreatitis Presentation: 07/15 10:51 Presenting complaint: Patient states: bloody stools x 4-5 days, epigastric pain LUQ sv pain. Transition of care: patient was not received from another setting of care. Onset of symptoms was July 10, 2019. Risk Assessment: Do you want to hurt yourself or someone else? Patient reports no desire to harm self or others. Initial Sepsis Screen: Does the patient meet any 2 criteria? HR > 90 bpm. No. Patient's initial sepsis screen is negative. Does the patient have a suspected source of infection? Yes: Acute abdominal pain. Care prior to arrival: None. 10:51 Method Of Arrival: Ambulatory sv 10:51 Acuity: NEO 2 sv Triage Assessment: 10:51 General: Appears in no apparent distress. uncomfortable, slender, Behavior is calm, sv cooperative, appropriate for age. Pain: Complains of pain in epigastric area and left upper quadrant Pain currently is 8 out of 10 on a pain scale. Quality of pain is described as sharp, Pain began 4-5 days ago Is continuous. Neuro: Level of Consciousness is awake, alert, obeys commands, Oriented to person, place, time, situation, Moves all extremities. Full function Gait is steady. Respiratory: Airway is patent Respiratory effort is even, unlabored, Respiratory pattern is regular, symmetrical. GI: Abdomen is flat, non-distended, Abd is soft and non tender X 4 quads. Derm: Skin is intact, Skin is pale. Musculoskeletal: Range of motion: intact in all extremities. Historical: - Allergies: 10:53 No Known Allergies; sv - PMHx: 10:53 ADD/ADHD; etoh abuse; Hypertension; liver "spot"; Pancreatitis; sv - PSHx: 10:53 Tonsillectomy; sv - Immunization history:: Flu vaccine is up to date. - Social history:: Smoking status: Patient uses tobacco products, smokes one pack cigarettes per day. Patient/guardian denies using alcohol, street drugs. - Ebola Screening: : No symptoms or risks identified at this time. Screenin:53 Abuse screen: Denies threats or abuse. Denies injuries from another. Nutritional sv screening: No deficits noted. Tuberculosis screening: No symptoms or risk factors identified. Fall Risk None identified. Assessment: 11:37 Reassessment: Patient appears in no apparent distress at this time. No changes from sv previously documented assessment. Patient and/or family updated on plan of care and expected duration. Pain level reassessed. Patient is alert, oriented x 3, equal unlabored respirations, skin warm/dry/pink. 12:27 Reassessment: pt states pain has not improved, AYAH Leyva notified. iw 12:46 Reassessment: Patient appears in no apparent distress at this time. Patient and/or sv family updated on plan of care and expected duration. Pain level reassessed. Patient is alert, oriented x 3, equal unlabored respirations, skin warm/dry/pink. Pt medicated for pain. 13:30 Reassessment: Patient appears in no apparent distress at this time. Patient and/or sv family updated on plan of care and expected duration. Pain level reassessed. Patient is alert, oriented x 3, equal unlabored respirations, skin warm/dry/pink. Pt waiting for his ride home. 14:57 Reassessment: Patient appears in no apparent distress at this time. Patient and/or sv family updated on plan of care and expected duration. Pain level reassessed. Patient is alert, oriented x 3, equal unlabored respirations, skin warm/dry/pink. Patient states feeling better. Patient states symptoms have improved. Vital Signs: 10:53 BP 142 / 86; Pulse 115; Resp 18; Temp 96.7; Pulse Ox 99% ; Weight 77.11 kg; Height 5 sv ft. 11 in. (180.34 cm); Pain 8/10; 12:48 BP 130 / 94; Pulse 99; Resp 18; Pulse Ox 100% ; sv 13:30 Pain 7/10; sv 14:45 BP 133 / 88; Pulse 99; Resp 16; Pulse Ox 100% ; sv 14:50 Pain 4/10; sv 10:53 Body Mass Index 23.71 (77.11 kg, 180.34 cm) sv ED Course: 10:45 Patient arrived in ED. as 10:49 Gordon Pratt PA is PHCP. jr8 10:49 Trenton Lubin MD is Attending Physician. jr8 10:49 Ketty Graves RN is Primary Nurse. sv 10:52 Triage completed. sv 10:53 Arm band placed on. sv 10:53 Patient has correct armband on for positive identification. Bed in low position. Call sv light in reach. Pulse ox on. NIBP on. Door closed. Head of bed elevated. 11:25 Initial lab(s) drawn, by me, sent to lab. T\\T\\S collected, blood band applied to patient. sv Inserted saline lock: 20 gauge in left forearm, using aseptic technique. Blood collected. Flushed left forearm with 5 ml normal saline. 11:37 Awaiting lab results. sv 12:11 CT Abd/Pelvis - IV Contrast Only In Process Unspecified. EDMS 12:47 Awaiting radiology results. sv 13:12 Bismark Montanez MD is Referral Physician. jr8 14:56 No provider procedures requiring assistance completed. IV discontinued, intact, sv bleeding controlled, No redness/swelling at site. Pressure dressing applied. Administered Medications: 11:34 Drug: NS 0.9% 1000 ml Route: IV; Rate: 1000 ml; Site: left forearm; sv 12:30 Follow up: Response: No adverse reaction; IV Status: Completed infusion; IV Intake: sv 1000ml 11:35 Drug: Zofran 4 mg Route: IVP; Site: left forearm; sv 12:00 Follow up: Response: No adverse reaction; Nausea is decreased sv 11:35 Drug: morphine 4 mg {Note: RASS1.} Route: IVP; Site: left forearm; sv 12:35 Follow up: Response: No adverse reaction; No change in condition; RASS: Restless (+1) sv 12:46 Drug: Demerol 25 mg Route: IVP; Site: left forearm; sv 13:30 Follow up: Pain 7/10 Adult; Response: No adverse reaction; Pain is decreased sv 13:20 Drug: ProTONIX 40 mg Route: IVP; Site: left forearm; sg 14:11 Follow up: Response: No adverse reaction sv 14:11 Drug: Demerol 25 mg Route: IVP; Site: left forearm; sg 14:50 Follow up: Pain 4/10 Adult; Response: No adverse reaction; Marked relief of symptoms; sv RASS: Alert and Calm (0) Intake: 12:30 IV: 1000ml; Total: 1000ml. sv Outcome: 13:13 Discharge ordered by MD. damon 14:56 Discharged to home ambulatory, with family. sv 14:56 Condition: stable 14:56 Discharge instructions given to patient, Instructed on discharge instructions, follow up and referral plans. Demonstrated understanding of instructions, follow-up care. 14:58 Patient left the ED. sv Signatures: Dispatcher [employer] Ketty Bishop RN RN sv Gay, Steven, RN RN sg Martinez, Amelia as Williams, Irene, RN RN iw Roszak, Josh, AYAH damon
--- NOTE | 2019-07-15 13:14 | EDPHYS ---
Physician Documentation [facility] Name: Jonathan Gutierrez Age: 33 yrs Sex: Male : 1985 Arrival Date: 07/15/2019 Time: 10:45 Bed 4 Private MD: ED Physician Trenton Lubin HPI: 07/15 11:27 This 33 yrs old Male presents to ER via Ambulatory with complaints of jr8 Abdominal pain/Bloody Stools. 11:27 The patient presents with abdominal pain in the upper abdomen. Onset: The jr8 symptoms/episode began/occurred gradually, 1 week(s) ago. The symptoms radiate to left back. Associated signs and symptoms: Pertinent positives: nausea, bloody stools. The symptoms are described as stabbing. Modifying factors: The symptoms are alleviated by nothing, the symptoms are aggravated by food. Severity of pain: At its worst the pain was moderate in the emergency department the pain is unchanged. It is unknown whether or not the patient has had similar symptoms in the past. The patient has not recently seen a physician. Stated that he use to be a heavy drinker. Has stopped about 3 weeks ago. Deals with chronic pancreatitis. Stated that this last bout of it has not decreased and now having melena and maroon stools . Historical: - Allergies: 10:53 No Known Allergies; sv - PMHx: 10:53 ADD/ADHD; etoh abuse; Hypertension; liver "spot"; Pancreatitis; sv - PSHx: 10:53 Tonsillectomy; sv - Immunization history:: Flu vaccine is up to date. - Social history:: Smoking status: Patient uses tobacco products, smokes one pack cigarettes per day. Patient/guardian denies using alcohol, street drugs. - Ebola Screening: : No symptoms or risks identified at this time. ROS: 11:34 Eyes: Negative for injury, pain, redness, and discharge, ENT: Negative for injury, jr8 pain, and discharge, Neck: Negative for injury, pain, and swelling, Cardiovascular: Negative for chest pain, palpitations, and edema, Respiratory: Negative for shortness of breath, cough, wheezing, and pleuritic chest pain, Back: Negative for injury and pain, MS/Extremity: Negative for injury and deformity, Skin: Negative for injury, rash, and discoloration, Neuro: Negative for headache, weakness, numbness, tingling, and seizure. 11:34 Abdomen/GI: Positive for abdominal pain, nausea, black/tarry stool, rectal bleeding. Exam: 11:34 Eyes: Pupils equal round and reactive to light, extra-ocular motions intact. Lids and jr8 lashes normal. Conjunctiva and sclera are non-icteric and not injected. Cornea within normal limits. Periorbital areas with no swelling, redness, or edema. ENT: Nares patent. No nasal discharge, no septal abnormalities noted. Tympanic membranes are normal and external auditory canals are clear. Oropharynx with no redness, swelling, or masses, exudates, or evidence of obstruction, uvula midline. Mucous membranes moist. Neck: Trachea midline, no thyromegaly or masses palpated, and no cervical lymphadenopathy. Supple, full range of motion without nuchal rigidity, or vertebral point tenderness. No Meningismus. Respiratory: Lungs have equal breath sounds bilaterally, clear to auscultation and percussion. No rales, rhonchi or wheezes noted. No increased work of breathing, no retractions or nasal flaring. Back: No spinal tenderness. No costovertebral tenderness. Full range of motion. Skin: Warm, dry with normal turgor. Normal color with no rashes, no lesions, and no evidence of cellulitis. MS/ Extremity: Pulses equal, no cyanosis. Neurovascular intact. Full, normal range of motion. Neuro: Awake and alert, GCS 15, oriented to person, place, time, and situation. Cranial nerves II-XII grossly intact. Motor strength 5/5 in all extremities. Sensory grossly intact. Cerebellar exam normal. Normal gait. 11:34 Cardiovascular: Rate: tachycardic, Rhythm: regular, Pulses: Pulses are 2+ in bilateral radial, brachial, femoral, popliteal, posterior tibial and and dorsalis pedis arteries.. Heart sounds: normal, normal S1and S2, no S3 or S4, no murmur, no rub, no gallop, Edema: is not appreciated, JVD: is not appreciated. 11:34 ECG was reviewed by the Attending Physician. 11:34 Abdomen/GI: Inspection: abdomen appears normal, Bowel sounds: active, all quadrants, Palpation: soft, in all quadrants, moderate abdominal tenderness, in the abdomen diffusely, mass, is not appreciated, rebound tenderness, is not appreciated, voluntary guarding, is not appreciated, involuntary guarding, is not appreciated, no appreciated organomegaly, Indicators: McBurney's point is not tender, Carreon's sign is negative, Rovsing's sign is negative, Liver: tenderness, is not appreciated. Vital Signs: 10:53 BP 142 / 86; Pulse 115; Resp 18; Temp 96.7; Pulse Ox 99% ; Weight 77.11 kg; Height 5 sv ft. 11 in. (180.34 cm); Pain 8/10; 12:48 BP 130 / 94; Pulse 99; Resp 18; Pulse Ox 100% ; sv 13:30 Pain 7/10; sv 14:45 BP 133 / 88; Pulse 99; Resp 16; Pulse Ox 100% ; sv 14:50 Pain 4/10; sv 10:53 Body Mass Index 23.71 (77.11 kg, 180.34 cm) sv MDM: 10:49 Patient medically screened. jr8 13:09 Data reviewed: vital signs, nurses notes, lab test result(s), radiologic studies, CT jr8 scan. Data interpreted: Pulse oximetry: on room air is 100 %. Interpretation: normal. 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 ED course: Patient without gross rectal bleeding. Labs without acute findings. CT without worsening of pancreatitis. Lipase normal. Will d/c home to f/u GI. 07/15 11:00 Order name: Basic Metabolic Panel; Complete Time: 07/15 11:00 Order name: CBC with Diff; Complete Time: 11:07/15 11:00 Order name: Creatinine for Radiology; Complete Time: 07/15 11:00 Order name: Hepatic Function; Complete Time: 07/15 11:00 Order name: Lipase; Complete Time: 07/15 11:00 Order name: Protime (+inr); Complete Time: 07/15 11:00 Order name: Ptt, Activated; Complete Time: 31 11:00 Order name: TS; Complete Time: 12:18 jr8 07/15 11:58 Order name: CT Abd/Pelvis - IV Contrast Only; Complete Time: 12:59 jr8 07/15 11:00 Order name: IV Saline Lock; Complete Time: 11:40 jr8 07/15 11:00 Order name: Labs collected and sent; Complete Time: 11:40 jr8 07/15 11:01 Order name: EKG - Nurse/Tech; Complete Time: 11:34 jr8 EC:34 Rate is 117 beats/min. Rhythm is regular, Sinus tachycardia. QRS [place] is Normal. [place] jr8 interval is normal at 144 msec. QRS interval is normal at 94 msec. QT interval is normal at 449 msec. No Q waves. T waves are Normal. No ST changes noted. Clinical impression: Sinus tachycardia and No evidence of ischemia. Interpreted by me. Reviewed by me. Administered Medications: 11:34 Drug: NS 0.9% 1000 ml Route: IV; Rate: 1000 ml; Site: left forearm; sv 12:30 Follow up: Response: No adverse reaction; IV Status: Completed infusion; IV Intake: sv 1000ml 11:35 Drug: Zofran 4 mg Route: IVP; Site: left forearm; sv 12:00 Follow up: Response: No adverse reaction; Nausea is decreased sv 11:35 Drug: morphine 4 mg {Note: RASS1.} Route: IVP; Site: left forearm; sv 12:35 Follow up: Response: No adverse reaction; No change in condition; RASS: Restless (+1) sv 12:46 Drug: Demerol 25 mg Route: IVP; Site: left forearm; sv 13:30 Follow up: Pain 7/10 Adult; Response: No adverse reaction; Pain is decreased sv 13:20 Drug: ProTONIX 40 mg Route: IVP; Site: left forearm; sg 14:11 Follow up: Response: No adverse reaction sv 14:11 Drug: Demerol 25 mg Route: IVP; Site: left forearm; sg 14:50 Follow up: Pain 4/10 Adult; Response: No adverse reaction; Marked relief of symptoms; sv RASS: Alert and Calm (0) Disposition: 17:17 Co-signature as Attending Physician, Trenton Lubin MD. rn Disposition: 07/15/19 13:13 Discharged to Home. Impression: Upper abdominal pain, unspecified, Alcohol-induced chronic pancreatitis. - Condition is Stable. - Discharge Instructions: Abdominal Pain, Adult, Gastritis, Adult. - Medication Reconciliation Form, Thank You Letter, Antibiotic Education, Prescription Opioid Use form. - Follow up: Bismark Montanez MD; When: 2 - 3 days; Reason: Recheck today's complaints, Continuance of care, Re-evaluation by your physician. - Problem is new. - Symptoms have improved. Signatures: Dispatcher [employer] EDKetty Lyles RN RN sv Gay, Steven, RN RN Trenton Sethi MD MD rn Roszak, Josh, AYAH POON jr8 Corrections: (The following items were deleted from the chart) 14:58 13:13 07/15/2019 13:13 Discharged to Home. Impression: Upper abdominal pain, sv unspecified; Alcohol-induced chronic pancreatitis. Condition is Stable. Forms are Medication Reconciliation Form, Thank You Letter, Antibiotic Education, Prescription Opioid Use. Follow up: Bismark Montanez; When: 2 - 3 days; Reason: Recheck today's complaints, Continuance of care, Re-evaluation by your physician. Problem is new. Symptoms have improved. jr8
[2019-07-15 15:03] VITALS: TEMP 96.7
[2019-07-15 15:04] VITALS: BP 130/94; O2SAT 100
--- NOTE | 2019-07-16 18:37 | EKG ---
Test Date: 2019-07-15 Test Time: 11:24:49 [employer] Tender: EMILY MEASUREMENT RESULTS: Intervals: Rate: 117 OR: 144 QRSD: 94 QT: 322 QTc: 449 [place]: P: 73 OR: 144 QRS: 80 T: 68 INTERPRETIVE STATEMENTS: Sinus tachycardia Otherwise normal ECG Compared to ECG 06/09/2019 12:59:49 Sinus rhythm no longer present Electronically Signed On 07-16-19 18:37:10 LATIN PROFESSOR by Siddharth De Leon
== END 2019-07-15 14:58 | disposition home or self-care (01) ==
LOC: ER 10:43
DX: K86.0 Alcohol-induced chronic pancreatitis (principal); I10 Essential (primary) hypertension
CPT/HCPCS: 36415; 74177; 80048; 80076; 83690; 85025; 85610; 85730; 86850; 86900; 86901; 93005; 96361; 96374; 96375; 99284; C9113; J2175; J2405; J7030; Q9967

== ENCOUNTER 2019-07-22 15:23 | Emergency (ER) | payer SELFPAY ==
--- OUTSIDE RECORDS SUMMARY | 2019-07-22 15:29 | XMS REPORT ---
:1985 [facility] [address] [place] [address] Care Team Providers Name Role Phone DMITRI [...] Value Reference Range Comments LIPASE (BEAKER) (test eqlp=343) 257 U/L 8-78 BASIC METABOLIC [id number] 03:05:00 Test Item Value Reference Range Comments SODIUM (BEAKER) (test 136 meq/L 136-145 mrrt=932) POTASSIUM (BEAKER) (test 4.5 meq/L 3.5-5.1 Specimen slightly kjxh=188) hemolyzed CHLORIDE (BEAKER) (test 104 meq/L 98-107 htnf=367) CO2 (BEAKER) (test 25 meq/L 22-29 magu=072) BLOOD UREA NITROGEN 5 mg/dL 7-21 (BEAKER) (test qdsy=611) CREATININE (BEAKER) (test 0.57 mg/dL 0.57-1.25 Specimen slightly fbhm=857) hemolyzed GLUCOSE RANDOM (BEAKER) 87 mg/dL 70-105 (test ovxq=689) CALCIUM (BEAKER) (test 8.4 mg/dL 8.4-10.2 jnfv=131) EGFR (BEAKER) (test 166 mL/min/1.73 sq m ESTIMATED GFR IS NOT uhhu=5673) ACCURATE CREATININE CLEARANCE IN PREDICTING GLOMERULAR FILTRATION RATE. ESTIMATED GFR IS NOT APPLICABLE FOR DIALYSIS PATIENTS. BASIC METABOLIC [id number] 04:41:00 Test Item Value Reference Range Comments SODIUM (BEAKER) (test 134 meq/L 136-145 zgzs=177) POTASSIUM (BEAKER) (test 3.9 meq/L 3.5-5.1 Specimen slightly axan=248) hemolyzed CHLORIDE (BEAKER) (test 102 meq/L 98-107 eavr=065) CO2 (BEAKER) (test 26 meq/L 22-29 amhf=088) BLOOD UREA NITROGEN 3 mg/dL 7-21 (BEAKER) (test psdp=248) CREATININE (BEAKER) (test 0.50 mg/dL 0.57-1.25 Specimen slightly abhb=174) hemolyzed GLUCOSE RANDOM (BEAKER) 95 mg/dL 70-105 (test wiod=820) CALCIUM (BEAKER) (test 7.9 mg/dL 8.4-10.2 zrjj=108) EGFR (BEAKER) (test 193 mL/min/1.73 sq m ESTIMATED GFR IS NOT ycin=5315) ACCURATE CREATININE CLEARANCE IN PREDICTING GLOMERULAR FILTRATION RATE. ESTIMATED GFR IS NOT APPLICABLE FOR DIALYSIS PATIENTS. [id number] 04:31:00 Test Item Value Reference Range Comments LIPASE (BEAKER) (test aasy=064) 334 U/L 8-78 TROPONIN [id number] 03:00:00 Test Item Value Reference Range Comments TROPONIN I (BEAKER) (test ffii=036) < ng/mL 0.00-0.03 Troponin I (TnI) levels [...] failure, acidosis, acute neurological disease, and persistent tachyarrhythmia.[id number] 02:54:00 Test Item Value Reference Range Comments MAGNESIUM (BEAKER) (test 1.9 mg/dL 1.6-2.6 Specimen slightly hemolyzed rszl=572) BASIC METABOLIC [id number] 02:54:00 Test Item Value Reference Range Comments SODIUM (BEAKER) (test 136 meq/L 136-145 tksj=813) POTASSIUM (BEAKER) (test 3.8 meq/L 3.5-5.1 Specimen slightly igrh=708) hemolyzed CHLORIDE (BEAKER) (test 100 meq/L 98-107 jhqk=588) CO2 (BEAKER) (test 28 meq/L 22-29 axre=152) BLOOD UREA NITROGEN 3 mg/dL 7-21 (BEAKER) (test kntl=634) CREATININE (BEAKER) (test 0.56 mg/dL 0.57-1.25 Specimen slightly aisv=734) hemolyzed GLUCOSE RANDOM (BEAKER) 111 mg/dL 70-105 (test fpca=108) CALCIUM (BEAKER) (test 8.3 mg/dL 8.4-10.2 atgi=884) EGFR (BEAKER) (test 169 mL/min/1.73 sq m ESTIMATED GFR IS NOT yqoj=3765) ACCURATE CREATININE CLEARANCE IN PREDICTING GLOMERULAR FILTRATION RATE. ESTIMATED GFR IS NOT APPLICABLE FOR DIALYSIS PATIENTS. [id number] 02:54:00 Test Item Value Reference Range Comments LIPASE (BEAKER) (test yfwt=326) 755 U/L 8-78 CBC W/PLT COUNT & AUTO [id number] 02:33:00 Test Item Value Reference Range Comments WHITE BLOOD CELL COUNT (BEAKER) (test ssgi=183) 5.7 K/ L 3.5-10.5 RED BLOOD CELL COUNT (BEAKER) (test nzut=192) 3.90 M/ L 4.63-6.08 HEMOGLOBIN (BEAKER) (test emho=064) 12.0 GM/DL 13.7-17.5 HEMATOCRIT (BEAKER) (test ydtz=924) 36.5 % 40.1-51.0 MEAN CORPUSCULAR VOLUME (BEAKER) (test kqei=634) 93.6 fL 79.0-92.2 MEAN CORPUSCULAR HEMOGLOBIN (BEAKER) (test 30.8 pg 25.7-32.2 azzz=057) MEAN CORPUSCULAR HEMOGLOBIN CONC (BEAKER) (test 32.9 GM/DL 32.3-36.5 jkio=427) RED CELL DISTRIBUTION WIDTH (BEAKER) (test 13.6 % 11.6-14.4 kyfq=932) PLATELET COUNT (BEAKER) (test olgv=347) 155 K/CU MM 150-450 MEAN PLATELET VOLUME (BEAKER) (test cowe=164) 9.4 fL 9.4-12.4 NUCLEATED RED BLOOD CELLS (BEAKER) (test 0 /100 WBC 0-0 cwqe=687) NEUTROPHILS RELATIVE PERCENT (BEAKER) (test 70 % kgvt=137) LYMPHOCYTES RELATIVE PERCENT (BEAKER) (test 19 % cbxc=161) MONOCYTES RELATIVE PERCENT (BEAKER) (test 8 % wfdo=614) EOSINOPHILS RELATIVE PERCENT (BEAKER) (test 2 % hgzt=721) BASOPHILS RELATIVE PERCENT (BEAKER) (test 1 % ffsf=148) NEUTROPHILS ABSOLUTE COUNT (BEAKER) (test 4.03 K/ L 1.78-5.38 gnwo=966) LYMPHOCYTES ABSOLUTE COUNT (BEAKER) (test 1.07 K/ L 1.32-3.57 xbdt=358) MONOCYTES ABSOLUTE COUNT (BEAKER) (test 0.45 K/ L 0.30-0.82 usgo=932) EOSINOPHILS ABSOLUTE COUNT (BEAKER) (test 0.12 K/ L 0.04-0.54 yaty=872) BASOPHILS ABSOLUTE COUNT (BEAKER) (test 0.05 K/ L 0.01-0.08 nasp=101) IMMATURE GRANULOCYTES-RELATIVE PERCENT (BEAKER) 0 % 0-1 (test jiri=7897) RAD, CHEST, 1 VIEW, NON [id number] 02:26:00Reason for exam:->pleuritic chest painShould this be [...] To [facility] MDReport Verified Date/Time: 03/22/2019 02:26:18 [id number] 08:35:00 Test Item Value Reference Range Comments MAGNESIUM (BEAKER) (test 1.4 mg/dL 1.6-2.6 Specimen slightly hemolyzed lela=573) BASIC METABOLIC [id number] 08:35:00 Test Item Value Reference Range Comments SODIUM (BEAKER) (test 138 meq/L 136-145 vnyr=037) POTASSIUM (BEAKER) (test 3.7 meq/L 3.5-5.1 Specimen slightly oxpg=715) hemolyzed CHLORIDE (BEAKER) (test 102 meq/L 98-107 ompc=836) CO2 (BEAKER) (test 23 meq/L 22-29 znme=958) BLOOD UREA NITROGEN 4 mg/dL 7-21 (BEAKER) (test oxhw=640) CREATININE (BEAKER) (test 0.48 mg/dL 0.57-1.25 Specimen slightly mtwp=089) hemolyzed GLUCOSE RANDOM (BEAKER) 53 mg/dL 70-105 (test pliu=063) CALCIUM (BEAKER) (test 8.1 mg/dL 8.4-10.2 buuk=142) EGFR (BEAKER) (test 202 mL/min/1.73 sq m ESTIMATED GFR IS NOT atid=7656) ACCURATE CREATININE CLEARANCE IN PREDICTING GLOMERULAR FILTRATION RATE. ESTIMATED GFR IS NOT APPLICABLE FOR DIALYSIS PATIENTS. HEPATIC FUNCTION [id number] 08:35:00 Test Item Value Reference Range Comments TOTAL PROTEIN (BEAKER) (test 6.2 gm/dL 6.0-8.3 Specimen slightly hemolyzed jzvg=146) ALBUMIN (BEAKER) (test 2.7 g/dL 3.5-5.0 Specimen slightly hemolyzed jnie=9467) BILIRUBIN TOTAL (BEAKER) (test 0.5 mg/dL 0.2-1.2 Specimen slightly hemolyzed bted=407) BILIRUBIN DIRECT (BEAKER) (test 0.3 mg/dL 0.1-0.5 Specimen slightly hemolyzed evba=340) ALKALINE PHOSPHATASE (BEAKER) 151 U/L 40-150 (test doix=625) AST (SGOT) (BEAKER) (test 64 U/L 5-34 Specimen slightly hemolyzed icha=428) ALT (SGPT) (BEAKER) (test 21 U/L 6-55 Specimen slightly hemolyzed yfgx=331) [id number] 08:35:00 Test Item Value Reference Range Comments LIPASE (BEAKER) (test cxls=681) 242 U/L 8-78 CBC W/PLT COUNT & AUTO [id number] 06:25:00 Test Item Value Reference Range Comments WHITE BLOOD CELL COUNT (BEAKER) (test ldxa=375) 4.2 K/ L 3.5-10.5 RED BLOOD CELL COUNT (BEAKER) (test qjoy=540) 4.14 M/ L 4.63-6.08 HEMOGLOBIN (BEAKER) (test rhml=706) 12.7 GM/DL 13.7-17.5 HEMATOCRIT (BEAKER) (test zyhc=744) 39.8 % 40.1-51.0 MEAN CORPUSCULAR VOLUME (BEAKER) (test smqt=462) 96.1 fL 79.0-92.2 MEAN CORPUSCULAR HEMOGLOBIN (BEAKER) (test 30.7 pg 25.7-32.2 muex=737) MEAN CORPUSCULAR HEMOGLOBIN CONC (BEAKER) (test 31.9 GM/DL 32.3-36.5 mlqa=889) RED CELL DISTRIBUTION WIDTH (BEAKER) (test 13.5 % 11.6-14.4 jnwe=437) PLATELET COUNT (BEAKER) (test yqwp=715) 186 K/CU MM 150-450 MEAN PLATELET VOLUME (BEAKER) (test dnxk=126) 10.9 fL 9.4-12.4 NUCLEATED RED BLOOD CELLS (BEAKER) (test 0 /100 WBC 0-0 tykh=031) NEUTROPHILS RELATIVE PERCENT (BEAKER) (test 55 % yjxg=286) LYMPHOCYTES RELATIVE PERCENT (BEAKER) (test 31 % cljg=264) MONOCYTES RELATIVE PERCENT (BEAKER) (test 8 % cftl=350) EOSINOPHILS RELATIVE PERCENT (BEAKER) (test 5 % bikn=507) BASOPHILS RELATIVE PERCENT (BEAKER) (test 1 % mttn=004) NEUTROPHILS ABSOLUTE COUNT (BEAKER) (test 2.28 K/ L 1.78-5.38 lfzj=387) LYMPHOCYTES ABSOLUTE COUNT (BEAKER) (test 1.28 K/ L 1.32-3.57 htil=568) MONOCYTES ABSOLUTE COUNT (BEAKER) (test 0.35 K/ L 0.30-0.82 owob=394) EOSINOPHILS ABSOLUTE COUNT (BEAKER) (test 0.21 K/ L 0.04-0.54 wnpo=034) BASOPHILS ABSOLUTE COUNT (BEAKER) (test 0.05 K/ L 0.01-0.08 xzfu=023) IMMATURE GRANULOCYTES-RELATIVE PERCENT (BEAKER) 0 % 0-1 (test mcrw=8871) [id number] 07:42:00 Test Item Value Reference Range Comments MAGNESIUM (BEAKER) (test wxrw=947) 1.5 mg/dL 1.6-2.6 BASIC METABOLIC [id number] 07:42:00 Test Item Value Reference Range Comments SODIUM (BEAKER) (test 140 meq/L 136-145 njqo=348) POTASSIUM (BEAKER) (test 3.3 meq/L 3.5-5.1 jzvm=007) CHLORIDE (BEAKER) (test 106 meq/L 98-107 mmcw=209) CO2 (BEAKER) (test 27 meq/L 22-29 bkpj=753) BLOOD UREA NITROGEN 6 mg/dL 7-21 (BEAKER) (test amzu=393) CREATININE (BEAKER) (test 0.53 mg/dL 0.57-1.25 ajzm=020) GLUCOSE RANDOM (BEAKER) 81 mg/dL 70-105 (test aqqv=125) CALCIUM (BEAKER) (test 8.2 mg/dL 8.4-10.2 ftpz=493) EGFR (BEAKER) (test 180 mL/min/1.73 sq m ESTIMATED GFR IS NOT clcn=8656) ACCURATE CREATININE CLEARANCE IN PREDICTING GLOMERULAR FILTRATION RATE. ESTIMATED GFR IS NOT APPLICABLE FOR DIALYSIS PATIENTS. LIPID [id number] 07:42:00 Test Item Value Reference Range Comments TRIGLYCERIDES (BEAKER) (test kuai=744) 63 mg/dL CHOLESTEROL (BEAKER) (test fazb=089) 101 mg/dL HDL CHOLESTEROL (BEAKER) (test mgfa=495) 20 mg/dL LDL CHOLESTEROL CALCULATED (BEAKER) (test 68 mg/dL czvi=772) Triglyceride Reference Range: Low Risk <150 Borderline 150- 199 High Risk 200-499 Very High Risk >=500Cholesterol Reference Range: Low Risk <200 Borderline 200-239 High Risk > 240HDL Cholesterol Reference Range: Low Risk >=60 High Risk <40LDL Cholesterol Reference Range: Optimal <100 Near Optimal 100-129 Borderline 130-159 High 160-189 Very High >=190HEPATIC FUNCTION [id number] 07:42:00 Test Item Value Reference Range Comments TOTAL PROTEIN (BEAKER) (test cedi=476) 6.1 gm/dL 6.0-8.3 ALBUMIN (BEAKER) (test dmft=4172) 2.7 g/dL 3.5-5.0 BILIRUBIN TOTAL (BEAKER) (test rmdg=900) 0.6 mg/dL 0.2-1.2 BILIRUBIN DIRECT (BEAKER) (test pybq=367) 0.4 mg/dL 0.1-0.5 ALKALINE PHOSPHATASE (BEAKER) (test mzvg=705) 157 U/L 40-150 AST (SGOT) (BEAKER) (test diui=249) 58 U/L 5-34 ALT (SGPT) (BEAKER) (test fxpm=259) 21 U/L 6-55 CBC W/PLT COUNT & AUTO [id number] 05:47:00 Test Item Value Reference Range Comments WHITE BLOOD CELL COUNT (BEAKER) (test auch=610) 4.3 K/ L 3.5-10.5 RED BLOOD CELL COUNT (BEAKER) (test wses=951) 3.66 M/ L 4.63-6.08 HEMOGLOBIN (BEAKER) (test xkws=096) 11.4 GM/DL 13.7-17.5 HEMATOCRIT (BEAKER) (test fauu=735) 35.8 % 40.1-51.0 MEAN CORPUSCULAR VOLUME (BEAKER) (test rkbr=105) 97.8 fL 79.0-92.2 MEAN CORPUSCULAR HEMOGLOBIN (BEAKER) (test 31.1 pg 25.7-32.2 rlod=364) MEAN CORPUSCULAR HEMOGLOBIN CONC (BEAKER) (test 31.8 GM/DL 32.3-36.5 zbaj=435) RED CELL DISTRIBUTION WIDTH (BEAKER) (test 14.2 % 11.6-14.4 jtxn=374) PLATELET COUNT (BEAKER) (test qttz=853) 170 K/CU MM 150-450 MEAN PLATELET VOLUME (BEAKER) (test fpww=849) 9.9 fL 9.4-12.4 NUCLEATED RED BLOOD CELLS (BEAKER) (test 0 /100 WBC 0-0 ttgq=105) NEUTROPHILS RELATIVE PERCENT (BEAKER) (test 55 % dvjv=932) LYMPHOCYTES RELATIVE PERCENT (BEAKER) (test 30 % zrbq=117) MONOCYTES RELATIVE PERCENT (BEAKER) (test 10 % neiq=293) EOSINOPHILS RELATIVE PERCENT (BEAKER) (test 4 % jpqu=625) BASOPHILS RELATIVE PERCENT (BEAKER) (test 1 % sscg=233) NEUTROPHILS ABSOLUTE COUNT (BEAKER) (test 2.36 K/ L 1.78-5.38 psjf=088) LYMPHOCYTES ABSOLUTE COUNT (BEAKER) (test 1.30 K/ L 1.32-3.57 kpfy=050) MONOCYTES ABSOLUTE COUNT (BEAKER) (test 0.41 K/ L 0.30-0.82 tcbe=368) EOSINOPHILS ABSOLUTE COUNT (BEAKER) (test 0.18 K/ L 0.04-0.54 expv=666) BASOPHILS ABSOLUTE COUNT (BEAKER) (test 0.03 K/ L 0.01-0.08 qkud=055) IMMATURE GRANULOCYTES-RELATIVE PERCENT (BEAKER) 1 % 0-1 (test wsac=8859) RAPID DRUG SCREEN, [id number] 23:57:00 Test Item Value Reference Range Comments BARBITURATE URINE (BEAKER) (test ihjy=495) Negative Negative BENZODIAZEPINE SCREEN URINE (BEAKER) (test Positive Negative vyxu=505) COCAINE (METAB.) SCREEN (BEAKER) (test zrrv=1049) Negative Negative METHADONE SCREEN (BEAKER) (test niju=4826) Negative Negative OPIATE SCREEN URINE (BEAKER) (test vhgi=646) Negative Negative CANNABINOID SCREEN URINE (BEAKER) (test apve=975) Positive Negative AMPH/METHAMPH SCREEN (BEAKER) (test hnao=6691) Positive Negative PHENCYCLIDINE SCREEN URINE (BEAKER) (test wjdb=631) Negative Negative DRUG CUTOFF CONC.Cocaine 300 ng/mL Cannabinoid 50 ng/mLBenzodiazepine 200 ng/mLBarbiturate 200 ng/ mLPhencyclidine 25 ng/mLOpiate 300 ng/mLMethadone 300 ng/mLAmphetamine/ 1000 ng/mL MethamphetamineThis assay provides an unconfirmed qualitative test result for the clinical management of patients in emergency situations. Chain of custody not maintained. Some asrd-qxd-fuecrsa medications, as well as adulterants, may cause inaccurate results. Clinical correlation should be applied. A more comprehensivedrug screen or confirmation of a detected drug may be performed upon request.BASIC METABOLIC [id number] 23:23:00 Test Item Value Reference Range Comments SODIUM (BEAKER) (test 139 meq/L 136-145 hizu=401) POTASSIUM (BEAKER) (test 3.1 meq/L 3.5-5.1 ktbq=730) CHLORIDE (BEAKER) (test 103 meq/L 98-107 tdxn=479) CO2 (BEAKER) (test 28 meq/L 22-29 gney=507) BLOOD UREA NITROGEN 8 mg/dL 7-21 (BEAKER) (test yabl=906) CREATININE (BEAKER) (test 0.60 mg/dL 0.57-1.25 sgje=092) GLUCOSE RANDOM (BEAKER) 92 mg/dL 70-105 (test wwnk=326) CALCIUM (BEAKER) (test 8.6 mg/dL 8.4-10.2 iwik=401) EGFR (BEAKER) (test 156 mL/min/1.73 sq m ESTIMATED GFR IS NOT ndja=6416) ACCURATE CREATININE CLEARANCE IN PREDICTING GLOMERULAR FILTRATION RATE. ESTIMATED GFR IS NOT APPLICABLE FOR DIALYSIS PATIENTS. HEPATIC FUNCTION [id number] 23:23:00 Test Item Value Reference Range Comments TOTAL PROTEIN (BEAKER) (test agga=026) 7.1 gm/dL 6.0-8.3 ALBUMIN (BEAKER) (test xlfr=2169) 3.2 g/dL 3.5-5.0 BILIRUBIN TOTAL (BEAKER) (test gdpv=180) 0.5 mg/dL 0.2-1.2 BILIRUBIN DIRECT (BEAKER) (test jhyl=560) 0.4 mg/dL 0.1-0.5 ALKALINE PHOSPHATASE (BEAKER) (test bwpz=684) 187 U/L 40-150 AST (SGOT) (BEAKER) (test nync=427) 62 U/L 5-34 ALT (SGPT) (BEAKER) (test lywf=086) 24 U/L 6-55 [id number] 22:57:00 Test Item Value Reference Range Comments LIPASE (BEAKER) (test rzuu=251) 957 U/L 8-78 [id number] 22:57:00 Test Item Value Reference Range Comments AMYLASE (BEAKER) (test cijc=110) 391 U/L 25-125 [id number] 22:56:00 Test Item Value Reference Range Comments PROTIME (BEAKER) (test dewn=915) 15.8 seconds 11.9-14.2 INR (BEAKER) (test rtcu=053) 1.3 <=5.9 PARTIAL THROMBOPLASTIN TIME (BEAKER) (test 30.9 seconds 22.5-36.0 iejm=510) Effective 12/11/2018: PT Reference Range ChangeNew: 11.9-14.2 Previous: 11.7- 14.7RECOMMENDED COUMADIN/WARFARIN INR THERAPY RANGESSTANDARD DOSE: 2.0-3.0 Includes: PROPHYLAXIS for venous thrombosis, systemic embolization; TREATMENT for venous thrombosis and/or pulmonary embolus.HIGH RISK: Target INR is2.5-3.5 for patients wiht mechanical heart valves.CBC W/PLT COUNT & AUTO [id number] 22:41:00 Test Item Value Reference Range Comments WHITE BLOOD CELL COUNT (BEAKER) (test qmcb=419) 6.4 K/ L 3.5-10.5 RED BLOOD CELL COUNT (BEAKER) (test vxpk=829) 3.99 M/ L 4.63-6.08 HEMOGLOBIN (BEAKER) (test awzd=996) 12.6 GM/DL 13.7-17.5 HEMATOCRIT (BEAKER) (test tjbl=398) 39.0 % 40.1-51.0 MEAN CORPUSCULAR VOLUME (BEAKER) (test pauu=972) 97.7 fL 79.0-92.2 MEAN CORPUSCULAR HEMOGLOBIN (BEAKER) (test 31.6 pg 25.7-32.2 wvef=588) MEAN CORPUSCULAR HEMOGLOBIN CONC (BEAKER) (test 32.3 GM/DL 32.3-36.5 pnnr=700) RED CELL DISTRIBUTION WIDTH (BEAKER) (test 14.1 % 11.6-14.4 pngj=386) PLATELET COUNT (BEAKER) (test thwz=333) 187 K/CU MM 150-450 MEAN PLATELET VOLUME (BEAKER) (test azng=042) 9.3 fL 9.4-12.4 NUCLEATED RED BLOOD CELLS (BEAKER) (test 0 /100 WBC 0-0 jvno=637) NEUTROPHILS RELATIVE PERCENT (BEAKER) (test 68 % byhr=391) LYMPHOCYTES RELATIVE PERCENT (BEAKER) (test 19 % mqta=933) MONOCYTES RELATIVE PERCENT (BEAKER) (test 10 % ppny=746) EOSINOPHILS RELATIVE PERCENT (BEAKER) (test 2 % jqqe=925) BASOPHILS RELATIVE PERCENT (BEAKER) (test 1 % ughm=882) NEUTROPHILS ABSOLUTE COUNT (BEAKER) (test 4.31 K/ L 1.78-5.38 rupe=440) LYMPHOCYTES ABSOLUTE COUNT (BEAKER) (test 1.21 K/ L 1.32-3.57 jwqd=340) MONOCYTES ABSOLUTE COUNT (BEAKER) (test 0.65 K/ L 0.30-0.82 yuvg=059) EOSINOPHILS ABSOLUTE COUNT (BEAKER) (test 0.14 K/ L 0.04-0.54 hrdd=891) BASOPHILS ABSOLUTE COUNT (BEAKER) (test 0.04 K/ L 0.01-0.08 atip=839) IMMATURE GRANULOCYTES-RELATIVE PERCENT (BEAKER) 0 % 0-1 (test qitj=2695) COMPREHENSIVE METABOLIC [id number] 06:44:00 Test Item Value Reference Range Comments TOTAL PROTEIN (BEAKER) 6.2 gm/dL 6.0-8.3 (test bxgy=062) ALBUMIN (BEAKER) (test 2.7 g/dL 3.5-5.0 zkqb=3577) ALKALINE PHOSPHATASE 195 U/L 40-150 (BEAKER) (test qxwl=535) BILIRUBIN TOTAL (BEAKER) 0.7 mg/dL 0.2-1.2 (test hixy=427) SODIUM (BEAKER) (test 138 meq/L 136-145 xojy=595) POTASSIUM (BEAKER) (test 3.6 meq/L 3.5-5.1 gtpp=111) CHLORIDE (BEAKER) (test 102 meq/L 98-107 kwxf=101) CO2 (BEAKER) (test 28 meq/L 22-29 xcbd=870) BLOOD UREA NITROGEN 2 mg/dL 7-21 (BEAKER) (test fwkh=388) CREATININE (BEAKER) (test 0.52 mg/dL 0.57-1.25 wqrp=151) GLUCOSE RANDOM (BEAKER) 103 mg/dL 70-105 (test wsoe=596) CALCIUM (BEAKER) (test 8.5 mg/dL 8.4-10.2 hejv=506) AST (SGOT) (BEAKER) (test 67 U/L 5-34 wxcz=725) ALT (SGPT) (BEAKER) (test 31 U/L 6-55 jmio=773) EGFR (BEAKER) (test 184 mL/min/1.73 sq ESTIMATED GFR IS NOT plvp=3764) m ACCURATE CREATININE CLEARANCE IN PREDICTING GLOMERULAR FILTRATION RATE. ESTIMATED GFR IS NOT APPLICABLE FOR DIALYSIS PATIENTS. CBC W/PLT COUNT & AUTO [id number] 06:09:00 Test Item Value Reference Range Comments WHITE BLOOD CELL COUNT (BEAKER) (test cmsy=373) 4.0 K/ L 3.5-10.5 RED BLOOD CELL COUNT (BEAKER) (test smdm=622) 3.23 M/ L 4.63-6.08 HEMOGLOBIN (BEAKER) (test sypl=246) 10.6 GM/DL 13.7-17.5 HEMATOCRIT (BEAKER) (test mqxx=166) 33.2 % 40.1-51.0 MEAN CORPUSCULAR VOLUME (BEAKER) (test vtiq=013) 102.8 fL 79.0-92.2 MEAN CORPUSCULAR HEMOGLOBIN (BEAKER) (test 32.8 pg 25.7-32.2 abli=336) MEAN CORPUSCULAR HEMOGLOBIN CONC (BEAKER) (test 31.9 GM/DL 32.3-36.5 gnlz=089) RED CELL DISTRIBUTION WIDTH (BEAKER) (test 15.5 % 11.6-14.4 ehbj=684) PLATELET COUNT (BEAKER) (test nhzn=573) 226 K/CU MM 150-450 MEAN PLATELET VOLUME (BEAKER) (test snrg=622) 10.4 fL 9.4-12.4 NUCLEATED RED BLOOD CELLS (BEAKER) (test 0 /100 WBC 0-0 aezv=620) NEUTROPHILS RELATIVE PERCENT (BEAKER) (test 54 % hgur=511) LYMPHOCYTES RELATIVE PERCENT (BEAKER) (test 29 % qtot=377) MONOCYTES RELATIVE PERCENT (BEAKER) (test 9 % weyp=256) EOSINOPHILS RELATIVE PERCENT (BEAKER) (test 6 % glrk=753) BASOPHILS RELATIVE PERCENT (BEAKER) (test 1 % tarq=474) NEUTROPHILS ABSOLUTE COUNT (BEAKER) (test 2.17 K/ L 1.78-5.38 ewxu=254) LYMPHOCYTES ABSOLUTE COUNT (BEAKER) (test 1.18 K/ L 1.32-3.57 laer=946) MONOCYTES ABSOLUTE COUNT (BEAKER) (test 0.37 K/ L 0.30-0.82 raao=961) EOSINOPHILS ABSOLUTE COUNT (BEAKER) (test 0.25 K/ L 0.04-0.54 gses=489) BASOPHILS ABSOLUTE COUNT (BEAKER) (test 0.04 K/ L 0.01-0.08 thjr=180) IMMATURE GRANULOCYTES-RELATIVE PERCENT (BEAKER) 0 % 0-1 (test jpzv=6196) COMPREHENSIVE METABOLIC [id number] 07:17:00 Test Item Value Reference Range Comments TOTAL PROTEIN (BEAKER) 7.3 gm/dL 6.0-8.3 (test vjrg=140) ALBUMIN (BEAKER) (test 3.2 g/dL 3.5-5.0 ibue=3945) ALKALINE PHOSPHATASE 235 U/L 40-150 (BEAKER) (test pidm=992) BILIRUBIN TOTAL (BEAKER) 0.9 mg/dL 0.2-1.2 (test nxdq=490) SODIUM (BEAKER) (test 135 meq/L 136-145 xczi=810) POTASSIUM (BEAKER) (test 3.6 meq/L 3.5-5.1 bnmz=633) CHLORIDE (BEAKER) (test 101 meq/L 98-107 bvez=253) CO2 (BEAKER) (test 29 meq/L 22-29 cakj=092) BLOOD UREA NITROGEN < mg/dL 7-21 (BEAKER) (test mewq=125) CREATININE (BEAKER) (test 0.56 mg/dL 0.57-1.25 snsz=315) GLUCOSE RANDOM (BEAKER) 87 mg/dL 70-105 (test lpbe=216) CALCIUM (BEAKER) (test 8.6 mg/dL 8.4-10.2 bmqh=913) AST (SGOT) (BEAKER) (test 96 U/L 5-34 puxn=779) ALT (SGPT) (BEAKER) (test 40 U/L 6-55 dfbc=746) EGFR (BEAKER) (test 169 mL/min/1.73 sq ESTIMATED GFR IS NOT wxqx=0178) m ACCURATE CREATININE CLEARANCE IN PREDICTING GLOMERULAR FILTRATION RATE. ESTIMATED GFR IS NOT APPLICABLE FOR DIALYSIS PATIENTS. CBC W/PLT COUNT & AUTO [id number] 06:05:00 Test Item Value Reference Range Comments WHITE BLOOD CELL COUNT (BEAKER) (test qcox=734) 5.1 K/ L 3.5-10.5 RED BLOOD CELL COUNT (BEAKER) (test dlzc=927) 3.60 M/ L 4.63-6.08 HEMOGLOBIN (BEAKER) (test sihw=729) 11.7 GM/DL 13.7-17.5 HEMATOCRIT (BEAKER) (test nboi=635) 37.6 % 40.1-51.0 MEAN CORPUSCULAR VOLUME (BEAKER) (test xtfk=332) 104.4 fL 79.0-92.2 MEAN CORPUSCULAR HEMOGLOBIN (BEAKER) (test 32.5 pg 25.7-32.2 edye=032) MEAN CORPUSCULAR HEMOGLOBIN CONC (BEAKER) (test 31.1 GM/DL 32.3-36.5 kmsu=478) RED CELL DISTRIBUTION WIDTH (BEAKER) (test 15.5 % 11.6-14.4 lluy=771) PLATELET COUNT (BEAKER) (test ixmd=891) 250 K/CU MM 150-450 MEAN PLATELET VOLUME (BEAKER) (test kazt=450) 10.1 fL 9.4-12.4 NUCLEATED RED BLOOD CELLS (BEAKER) (test 0 /100 WBC 0-0 bgrt=007) NEUTROPHILS RELATIVE PERCENT (BEAKER) (test 61 % wzaz=547) LYMPHOCYTES RELATIVE PERCENT (BEAKER) (test 25 % rkri=444) MONOCYTES RELATIVE PERCENT (BEAKER) (test 8 % cgml=403) EOSINOPHILS RELATIVE PERCENT (BEAKER) (test 5 % tgdu=522) BASOPHILS RELATIVE PERCENT (BEAKER) (test 1 % jjvj=029) NEUTROPHILS ABSOLUTE COUNT (BEAKER) (test 3.09 K/ L 1.78-5.38 lrps=195) LYMPHOCYTES ABSOLUTE COUNT (BEAKER) (test 1.28 K/ L 1.32-3.57 gxzx=954) MONOCYTES ABSOLUTE COUNT (BEAKER) (test 0.39 K/ L 0.30-0.82 bsra=006) EOSINOPHILS ABSOLUTE COUNT (BEAKER) (test 0.25 K/ L 0.04-0.54 yxok=532) BASOPHILS ABSOLUTE COUNT (BEAKER) (test 0.05 K/ L 0.01-0.08 spdq=476) IMMATURE GRANULOCYTES-RELATIVE PERCENT (BEAKER) 0 % 0-1 (test rxuz=2579) [id number] 07:51:00 Test Item Value Reference Range Comments MAGNESIUM (BEAKER) (test mpme=312) 1.7 mg/dL 1.6-2.6 COMPREHENSIVE METABOLIC [id number] 06:19:00 Test Item Value Reference Range Comments TOTAL PROTEIN (BEAKER) 6.1 gm/dL 6.0-8.3 (test xzgt=118) ALBUMIN (BEAKER) (test 2.7 g/dL 3.5-5.0 kwyp=9851) ALKALINE PHOSPHATASE 214 U/L 40-150 (BEAKER) (test ymwv=115) BILIRUBIN TOTAL (BEAKER) 0.9 mg/dL 0.2-1.2 (test xgmp=698) SODIUM (BEAKER) (test 139 meq/L 136-145 teqq=813) POTASSIUM (BEAKER) (test 4.2 meq/L 3.5-5.1 mymq=985) CHLORIDE (BEAKER) (test 110 meq/L 98-107 lyyk=692) CO2 (BEAKER) (test 24 meq/L 22-29 lewm=617) BLOOD UREA NITROGEN < mg/dL 7-21 (BEAKER) (test ywwu=808) CREATININE (BEAKER) (test 0.50 mg/dL 0.57-1.25 zzrz=916) GLUCOSE RANDOM (BEAKER) 77 mg/dL 70-105 (test wghi=250) CALCIUM (BEAKER) (test 7.7 mg/dL 8.4-10.2 colk=287) AST (SGOT) (BEAKER) (test 96 U/L 5-34 pxxo=312) ALT (SGPT) (BEAKER) (test 37 U/L 6-55 ftvo=701) EGFR (BEAKER) (test 193 mL/min/1.73 sq ESTIMATED GFR IS NOT xnzu=6523) m ACCURATE CREATININE CLEARANCE IN PREDICTING GLOMERULAR FILTRATION RATE. ESTIMATED GFR IS NOT APPLICABLE FOR DIALYSIS PATIENTS. CBC W/PLT COUNT & AUTO [id number] 05:15:00 Test Item Value Reference Range Comments WHITE BLOOD CELL COUNT (BEAKER) (test txio=024) 4.8 K/ L 3.5-10.5 RED BLOOD CELL COUNT (BEAKER) (test mhdb=513) 3.25 M/ L 4.63-6.08 HEMOGLOBIN (BEAKER) (test csvu=050) 10.7 GM/DL 13.7-17.5 HEMATOCRIT (BEAKER) (test fxaa=503) 34.0 % 40.1-51.0 MEAN CORPUSCULAR VOLUME (BEAKER) (test vrcj=682) 104.6 fL 79.0-92.2 MEAN CORPUSCULAR HEMOGLOBIN (BEAKER) (test 32.9 pg 25.7-32.2 htrc=816) MEAN CORPUSCULAR HEMOGLOBIN CONC (BEAKER) (test 31.5 GM/DL 32.3-36.5 mqni=552) RED CELL DISTRIBUTION WIDTH (BEAKER) (test 15.5 % 11.6-14.4 rokr=974) PLATELET COUNT (BEAKER) (test feyp=841) 219 K/CU MM 150-450 MEAN PLATELET VOLUME (BEAKER) (test mpre=920) 10.2 fL 9.4-12.4 NUCLEATED RED BLOOD CELLS (BEAKER) (test 0 /100 WBC 0-0 mumw=522) NEUTROPHILS RELATIVE PERCENT (BEAKER) (test 56 % buii=753) LYMPHOCYTES RELATIVE PERCENT (BEAKER) (test 29 % blyw=826) MONOCYTES RELATIVE PERCENT (BEAKER) (test 8 % svbs=864) EOSINOPHILS RELATIVE PERCENT (BEAKER) (test 5 % qvci=666) BASOPHILS RELATIVE PERCENT (BEAKER) (test 1 % ffvz=019) NEUTROPHILS ABSOLUTE COUNT (BEAKER) (test 2.69 K/ L 1.78-5.38 ufqv=573) LYMPHOCYTES ABSOLUTE COUNT (BEAKER) (test 1.40 K/ L 1.32-3.57 riza=649) MONOCYTES ABSOLUTE COUNT (BEAKER) (test 0.37 K/ L 0.30-0.82 xylo=360) EOSINOPHILS ABSOLUTE COUNT (BEAKER) (test 0.25 K/ L 0.04-0.54 drwm=487) BASOPHILS ABSOLUTE COUNT (BEAKER) (test 0.05 K/ L 0.01-0.08 zetm=060) IMMATURE GRANULOCYTES-RELATIVE PERCENT (BEAKER) 0 % 0-1 (test cowd=3821) COMPREHENSIVE METABOLIC [id number] 09:35:00 Test Item Value Reference Range Comments TOTAL PROTEIN (BEAKER) 6.4 gm/dL 6.0-8.3 Specimen slightly (test otrq=453) hemolyzed ALBUMIN (BEAKER) (test 2.8 g/dL 3.5-5.0 Specimen slightly hcqx=9268) hemolyzed ALKALINE PHOSPHATASE 214 U/L 40-150 (BEAKER) (test shbm=762) BILIRUBIN TOTAL (BEAKER) 1.0 mg/dL 0.2-1.2 Specimen slightly (test jymq=476) hemolyzed SODIUM (BEAKER) (test 136 meq/L 136-145 rsqm=492) POTASSIUM (BEAKER) (test 4.2 meq/L 3.5-5.1 Specimen slightly uiaf=181) hemolyzed CHLORIDE (BEAKER) (test 107 meq/L 98-107 ehuc=721) CO2 (BEAKER) (test 23 meq/L 22-29 btgn=018) BLOOD UREA NITROGEN 2 mg/dL 7-21 (BEAKER) (test athz=839) CREATININE (BEAKER) (test 0.54 mg/dL 0.57-1.25 Specimen slightly kwvn=878) hemolyzed GLUCOSE RANDOM (BEAKER) 89 mg/dL 70-105 (test gzrn=910) CALCIUM (BEAKER) (test 7.6 mg/dL 8.4-10.2 icdy=223) AST (SGOT) (BEAKER) (test 101 U/L 5-34 Specimen slightly dqsn=574) hemolyzed ALT (SGPT) (BEAKER) (test 41 U/L 6-55 Specimen slightly mvrw=005) hemolyzed EGFR (BEAKER) (test 176 mL/min/1.73 sq ESTIMATED GFR IS NOT vfxu=6766) m ACCURATE CREATININE CLEARANCE IN PREDICTING GLOMERULAR FILTRATION RATE. ESTIMATED GFR IS NOT APPLICABLE FOR DIALYSIS PATIENTS. [id number] 09:27:00 Test Item Value Reference Range Comments MAGNESIUM (BEAKER) (test 1.3 mg/dL 1.6-2.6 Specimen slightly hemolyzed jbmd=497) CBC W/PLT COUNT & AUTO [id number] 09:04:00 Test Item Value Reference Range Comments WHITE BLOOD CELL COUNT (BEAKER) (test mene=210) 5.7 K/ L 3.5-10.5 RED BLOOD CELL COUNT (BEAKER) (test eztk=766) 3.18 M/ L 4.63-6.08 HEMOGLOBIN (BEAKER) (test vahf=019) 10.4 GM/DL 13.7-17.5 HEMATOCRIT (BEAKER) (test ivfs=563) 33.1 % 40.1-51.0 MEAN CORPUSCULAR VOLUME (BEAKER) (test gwpt=696) 104.1 fL 79.0-92.2 MEAN CORPUSCULAR HEMOGLOBIN (BEAKER) (test 32.7 pg 25.7-32.2 ldrz=261) MEAN CORPUSCULAR HEMOGLOBIN CONC (BEAKER) (test 31.4 GM/DL 32.3-36.5 nzfr=421) RED CELL DISTRIBUTION WIDTH (BEAKER) (test 15.9 % 11.6-14.4 jpby=428) PLATELET COUNT (BEAKER) (test hurn=524) 223 K/CU MM 150-450 MEAN PLATELET VOLUME (BEAKER) (test trwo=986) 10.4 fL 9.4-12.4 NUCLEATED RED BLOOD CELLS (BEAKER) (test 0 /100 WBC 0-0 qxks=402) NEUTROPHILS RELATIVE PERCENT (BEAKER) (test 58 % ghpt=753) LYMPHOCYTES RELATIVE PERCENT (BEAKER) (test 25 % mwfk=503) MONOCYTES RELATIVE PERCENT (BEAKER) (test 11 % vmzx=752) EOSINOPHILS RELATIVE PERCENT (BEAKER) (test 5 % nnic=162) BASOPHILS RELATIVE PERCENT (BEAKER) (test 1 % osts=047) NEUTROPHILS ABSOLUTE COUNT (BEAKER) (test 3.27 K/ L 1.78-5.38 vugd=668) LYMPHOCYTES ABSOLUTE COUNT (BEAKER) (test 1.40 K/ L 1.32-3.57 ydge=464) MONOCYTES ABSOLUTE COUNT (BEAKER) (test 0.61 K/ L 0.30-0.82 yvrf=144) EOSINOPHILS ABSOLUTE COUNT (BEAKER) (test 0.30 K/ L 0.04-0.54 wrxg=661) BASOPHILS ABSOLUTE COUNT (BEAKER) (test 0.07 K/ L 0.01-0.08 tehx=895) IMMATURE GRANULOCYTES-RELATIVE PERCENT (BEAKER) 0 % 0-1 (test qwls=4254) COMPREHENSIVE METABOLIC [id number] 05:26:00 Test Item Value Reference Range Comments TOTAL PROTEIN (BEAKER) 5.7 gm/dL 6.0-8.3 (test ozcz=634) ALBUMIN (BEAKER) (test 2.6 g/dL 3.5-5.0 icix=9426) ALKALINE PHOSPHATASE 204 U/L 40-150 (BEAKER) (test dsit=152) BILIRUBIN TOTAL (BEAKER) 1.0 mg/dL 0.2-1.2 (test ioko=958) SODIUM (BEAKER) (test 138 meq/L 136-145 hwkg=800) POTASSIUM (BEAKER) (test 3.3 meq/L 3.5-5.1 ypxf=996) CHLORIDE (BEAKER) (test 106 meq/L 98-107 yevl=235) CO2 (BEAKER) (test 24 meq/L 22-29 qoee=782) BLOOD UREA NITROGEN 5 mg/dL 7-21 (BEAKER) (test ewsj=577) CREATININE (BEAKER) (test 0.53 mg/dL 0.57-1.25 sqrf=155) GLUCOSE RANDOM (BEAKER) 85 mg/dL 70-105 (test mgzm=452) CALCIUM (BEAKER) (test 7.3 mg/dL 8.4-10.2 ndfj=389) AST (SGOT) (BEAKER) (test 108 U/L 5-34 tjwo=091) ALT (SGPT) (BEAKER) (test 46 U/L 6-55 izgu=407) EGFR (BEAKER) (test 180 mL/min/1.73 sq ESTIMATED GFR IS NOT kjew=6753) m ACCURATE CREATININE CLEARANCE IN PREDICTING GLOMERULAR FILTRATION RATE. ESTIMATED GFR IS NOT APPLICABLE FOR DIALYSIS PATIENTS. PROTHROMBIN [id number] 05:08:00 Test Item Value Reference Range Comments PROTIME (BEAKER) (test sibw=980) 17.0 seconds 11.9-14.2 INR (BEAKER) (test epst=619) 1.5 <=5.9 Effective 12/11/2018: PT Reference Range ChangeNew: 11.9-14.2 Previous: 11.7- 14.7RECOMMENDED COUMADIN/WARFARIN INR THERAPY RANGESSTANDARD DOSE: 2.0-3.0 Includes: PROPHYLAXIS for venous thrombosis, systemic embolization; TREATMENT for venous thrombosis and/or pulmonary embolus.HIGH RISK: Target INR is2.5-3.5 for patients wiht mechanical heart valves.CBC W/PLT COUNT & AUTO [id number] 04:59:00 Test Item Value Reference Range Comments WHITE BLOOD CELL COUNT (BEAKER) (test cupi=084) 6.1 K/ L 3.5-10.5 RED BLOOD CELL COUNT (BEAKER) (test ettf=752) 2.96 M/ L 4.63-6.08 HEMOGLOBIN (BEAKER) (test yqwp=504) 9.7 GM/DL 13.7-17.5 HEMATOCRIT (BEAKER) (test bihx=404) 30.5 % 40.1-51.0 MEAN CORPUSCULAR VOLUME (BEAKER) (test wmop=493) 103.0 fL 79.0-92.2 MEAN CORPUSCULAR HEMOGLOBIN (BEAKER) (test 32.8 pg 25.7-32.2 zoqu=084) MEAN CORPUSCULAR HEMOGLOBIN CONC (BEAKER) (test 31.8 GM/DL 32.3-36.5 tbxo=167) RED CELL DISTRIBUTION WIDTH (BEAKER) (test 16.0 % 11.6-14.4 aqay=311) PLATELET COUNT (BEAKER) (test ruye=788) 221 K/CU MM 150-450 MEAN PLATELET VOLUME (BEAKER) (test josq=201) 10.7 fL 9.4-12.4 NUCLEATED RED BLOOD CELLS (BEAKER) (test 0 /100 WBC 0-0 blpq=943) NEUTROPHILS RELATIVE PERCENT (BEAKER) (test 62 % abuy=089) LYMPHOCYTES RELATIVE PERCENT (BEAKER) (test 22 % tlkt=015) MONOCYTES RELATIVE PERCENT (BEAKER) (test 11 % rvle=970) EOSINOPHILS RELATIVE PERCENT (BEAKER) (test 3 % nxjp=959) BASOPHILS RELATIVE PERCENT (BEAKER) (test 1 % tfzu=624) NEUTROPHILS ABSOLUTE COUNT (BEAKER) (test 3.81 K/ L 1.78-5.38 fgcx=287) LYMPHOCYTES ABSOLUTE COUNT (BEAKER) (test 1.32 K/ L 1.32-3.57 msoc=415) MONOCYTES ABSOLUTE COUNT (BEAKER) (test 0.70 K/ L 0.30-0.82 ngzp=024) EOSINOPHILS ABSOLUTE COUNT (BEAKER) (test 0.21 K/ L 0.04-0.54 qbgg=733) BASOPHILS ABSOLUTE COUNT (BEAKER) (test 0.07 K/ L 0.01-0.08 bmkm=923) IMMATURE GRANULOCYTES-RELATIVE PERCENT (BEAKER) 0 % 0-1 (test qsse=5285) POCT-GLUCOSE [id number] 07:44:00 Test Item Value Reference Range Comments POC-GLUCOSE METER (BEAKER) 90 mg/dL 70-110 TESTED AT [facility] [address] (test yvgd=5027) [facility] [address] COMPREHENSIVE METABOLIC [id number] 07:29:00 Test Item Value Reference Range Comments TOTAL PROTEIN (BEAKER) 5.7 gm/dL 6.0-8.3 (test dpsl=972) ALBUMIN (BEAKER) (test 2.5 g/dL 3.5-5.0 ubxw=5373) ALKALINE PHOSPHATASE 411 U/L 40-150 (BEAKER) (test seno=197) BILIRUBIN TOTAL (BEAKER) 1.7 mg/dL 0.2-1.2 (test xmeq=825) SODIUM (BEAKER) (test 139 meq/L 136-145 afgd=436) POTASSIUM (BEAKER) (test 3.1 meq/L 3.5-5.1 xelz=730) CHLORIDE (BEAKER) (test 105 meq/L 98-107 blrx=887) CO2 (BEAKER) (test 24 meq/L 22-29 voza=731) BLOOD UREA NITROGEN 3 mg/dL 7-21 (BEAKER) (test noxk=589) CREATININE (BEAKER) (test 0.61 mg/dL 0.57-1.25 osog=466) GLUCOSE RANDOM (BEAKER) 95 mg/dL 70-105 (test kphv=155) CALCIUM (BEAKER) (test 6.8 mg/dL 8.4-10.2 bnnu=244) AST (SGOT) (BEAKER) (test 173 U/L 5-34 pnzg=864) ALT (SGPT) (BEAKER) (test 53 U/L 6-55 xhsg=795) EGFR (BEAKER) (test 153 mL/min/1.73 sq ESTIMATED GFR IS NOT aoxt=8362) m ACCURATE CREATININE CLEARANCE IN PREDICTING GLOMERULAR FILTRATION RATE. ESTIMATED GFR IS NOT APPLICABLE FOR DIALYSIS PATIENTS. [id number] 07:28:00 Test Item Value Reference Range Comments PHOSPHORUS (BEAKER) (test rtar=056) 2.4 mg/dL 2.3-4.7 [id number] 07:28:00 Test Item Value Reference Range Comments MAGNESIUM (BEAKER) (test eoey=187) 1.8 mg/dL 1.6-2.6 HEPATIC FUNCTION [id number] 07:28:00 Test Item Value Reference Range Comments TOTAL PROTEIN (BEAKER) (test udhy=168) 5.7 gm/dL 6.0-8.3 ALBUMIN (BEAKER) (test ogbt=1705) 2.5 g/dL 3.5-5.0 BILIRUBIN TOTAL (BEAKER) (test euwo=298) 1.7 mg/dL 0.2-1.2 BILIRUBIN DIRECT (BEAKER) (test ooll=472) 1.3 mg/dL 0.1-0.5 ALKALINE PHOSPHATASE (BEAKER) (test dwat=854) 411 U/L 40-150 AST (SGOT) (BEAKER) (test fucl=457) 173 U/L 5-34 ALT (SGPT) (BEAKER) (test aier=589) 53 U/L 6-55 [id number] 07:28:00 Test Item Value Reference Range Comments LIPASE (BEAKER) (test hjnb=215) 231 U/L 8-78 CBC W/PLT COUNT & AUTO [id number] 07:10:00 Test Item Value Reference Range Comments WHITE BLOOD CELL COUNT (BEAKER) (test unsi=328) 4.5 K/ L 3.5-10.5 RED BLOOD CELL COUNT (BEAKER) (test ozrn=520) 2.76 M/ L 4.63-6.08 HEMOGLOBIN (BEAKER) (test onaf=377) 9.2 GM/DL 13.7-17.5 HEMATOCRIT (BEAKER) (test ytqr=491) 29.2 % 40.1-51.0 MEAN CORPUSCULAR VOLUME (BEAKER) (test ltfq=152) 105.8 fL 79.0-92.2 MEAN CORPUSCULAR HEMOGLOBIN (BEAKER) (test 33.3 pg 25.7-32.2 wtbj=588) MEAN CORPUSCULAR HEMOGLOBIN CONC (BEAKER) (test 31.5 GM/DL 32.3-36.5 zcio=136) RED CELL DISTRIBUTION WIDTH (BEAKER) (test 21.9 % 11.6-14.4 mbqs=464) PLATELET COUNT (BEAKER) (test drjl=899) 150 K/CU MM 150-450 MEAN PLATELET VOLUME (BEAKER) (test wrth=071) 10.5 fL 9.4-12.4 NUCLEATED RED BLOOD CELLS (BEAKER) (test 0 /100 WBC 0-0 ewcv=711) NEUTROPHILS RELATIVE PERCENT (BEAKER) (test 65 % aclt=151) LYMPHOCYTES RELATIVE PERCENT (BEAKER) (test 17 % oyqs=775) MONOCYTES RELATIVE PERCENT (BEAKER) (test 13 % rcsp=944) EOSINOPHILS RELATIVE PERCENT (BEAKER) (test 2 % bual=625) BASOPHILS RELATIVE PERCENT (BEAKER) (test 1 % coqz=452) NEUTROPHILS ABSOLUTE COUNT (BEAKER) (test 2.91 K/ L 1.78-5.38 gapi=479) LYMPHOCYTES ABSOLUTE COUNT (BEAKER) (test 0.78 K/ L 1.32-3.57 xhmp=610) MONOCYTES ABSOLUTE COUNT (BEAKER) (test 0.59 K/ L 0.30-0.82 srfc=928) EOSINOPHILS ABSOLUTE COUNT (BEAKER) (test 0.11 K/ L 0.04-0.54 nnwr=389) BASOPHILS ABSOLUTE COUNT (BEAKER) (test 0.05 K/ L 0.01-0.08 afxp=455) IMMATURE GRANULOCYTES-RELATIVE PERCENT (BEAKER) 2 % 0-1 (test ozqu=8117) COMPREHENSIVE METABOLIC [id number] 04:23:00 Test Item Value Reference Range Comments TOTAL PROTEIN (BEAKER) 5.5 gm/dL 6.0-8.3 (test kzfn=751) ALBUMIN (BEAKER) (test 2.5 g/dL 3.5-5.0 wzzj=5540) ALKALINE PHOSPHATASE 453 U/L 40-150 (BEAKER) (test jelh=859) BILIRUBIN TOTAL (BEAKER) 2.0 mg/dL 0.2-1.2 (test ftbx=108) SODIUM (BEAKER) (test 138 meq/L 136-145 gikp=319) POTASSIUM (BEAKER) (test 3.2 meq/L 3.5-5.1 zznr=435) CHLORIDE (BEAKER) (test 104 meq/L 98-107 eodn=146) CO2 (BEAKER) (test 26 meq/L 22-29 mrgs=508) BLOOD UREA NITROGEN 3 mg/dL 7-21 (BEAKER) (test cdvx=408) CREATININE (BEAKER) (test 0.51 mg/dL 0.57-1.25 gwdn=822) GLUCOSE RANDOM (BEAKER) 104 mg/dL 70-105 (test dlnc=704) CALCIUM (BEAKER) (test 7.0 mg/dL 8.4-10.2 tvnz=577) AST (SGOT) (BEAKER) (test 166 U/L 5-34 qilw=661) ALT (SGPT) (BEAKER) (test 52 U/L 6-55 phhj=340) EGFR (BEAKER) (test 188 mL/min/1.73 sq ESTIMATED GFR IS NOT hpks=3876) m ACCURATE CREATININE CLEARANCE IN PREDICTING GLOMERULAR FILTRATION RATE. ESTIMATED GFR IS NOT APPLICABLE FOR DIALYSIS PATIENTS. [id number] 04:21:00 Test Item Value Reference Range Comments PHOSPHORUS (BEAKER) (test vfyw=590) 2.0 mg/dL 2.3-4.7 [id number] 04:21:00 Test Item Value Reference Range Comments MAGNESIUM (BEAKER) (test chiu=938) 1.5 mg/dL 1.6-2.6 HEPATIC FUNCTION [id number] 04:21:00 Test Item Value Reference Range Comments TOTAL PROTEIN (BEAKER) (test yffc=652) 5.5 gm/dL 6.0-8.3 ALBUMIN (BEAKER) (test orgi=6938) 2.5 g/dL 3.5-5.0 BILIRUBIN TOTAL (BEAKER) (test atxm=279) 2.0 mg/dL 0.2-1.2 BILIRUBIN DIRECT (BEAKER) (test uwiw=540) 1.5 mg/dL 0.1-0.5 ALKALINE PHOSPHATASE (BEAKER) (test npxp=718) 453 U/L 40-150 AST (SGOT) (BEAKER) (test jinn=005) 166 U/L 5-34 ALT (SGPT) (BEAKER) (test myiz=643) 52 U/L 6-55 [id number] 04:21:00 Test Item Value Reference Range Comments LIPASE (BEAKER) (test tduq=330) 283 U/L 8-78 CBC W/PLT COUNT & AUTO [id number] 04:19:00 Test Item Value Reference Range Comments WHITE BLOOD CELL COUNT (BEAKER) (test cwkp=845) 4.6 K/ L 3.5-10.5 RED BLOOD CELL COUNT (BEAKER) (test myjy=757) 2.82 M/ L 4.63-6.08 HEMOGLOBIN (BEAKER) (test krht=902) 9.4 GM/DL 13.7-17.5 HEMATOCRIT (BEAKER) (test ldla=102) 28.9 % 40.1-51.0 MEAN CORPUSCULAR VOLUME (BEAKER) (test wbxc=573) 102.5 fL 79.0-92.2 MEAN CORPUSCULAR HEMOGLOBIN (BEAKER) (test 33.3 pg 25.7-32.2 gmqj=617) MEAN CORPUSCULAR HEMOGLOBIN CONC (BEAKER) (test 32.5 GM/DL 32.3-36.5 dlwm=668) RED CELL DISTRIBUTION WIDTH (BEAKER) (test 21.8 % 11.6-14.4 kozd=578) PLATELET COUNT (BEAKER) (test tmst=659) 141 K/CU MM 150-450 MEAN PLATELET VOLUME (BEAKER) (test tgdf=843) 9.5 fL 9.4-12.4 NUCLEATED RED BLOOD CELLS (BEAKER) (test 0 /100 WBC 0-0 lsfz=250) NEUTROPHILS RELATIVE PERCENT (BEAKER) (test 63 % yhfq=258) LYMPHOCYTES RELATIVE PERCENT (BEAKER) (test 22 % jlzb=085) MONOCYTES RELATIVE PERCENT (BEAKER) (test 10 % isxw=616) EOSINOPHILS RELATIVE PERCENT (BEAKER) (test 3 % lbkk=103) BASOPHILS RELATIVE PERCENT (BEAKER) (test 1 % ynoy=370) NEUTROPHILS ABSOLUTE COUNT (BEAKER) (test 2.86 K/ L 1.78-5.38 pbcv=033) LYMPHOCYTES ABSOLUTE COUNT (BEAKER) (test 1.02 K/ L 1.32-3.57 ahzn=050) MONOCYTES ABSOLUTE COUNT (BEAKER) (test 0.44 K/ L 0.30-0.82 wstg=018) EOSINOPHILS ABSOLUTE COUNT (BEAKER) (test 0.12 K/ L 0.04-0.54 afyx=719) BASOPHILS ABSOLUTE COUNT (BEAKER) (test 0.05 K/ L 0.01-0.08 vjbv=874) IMMATURE GRANULOCYTES-RELATIVE PERCENT (BEAKER) 2 % 0-1 (test kqpz=9942) HEMOGLOBIN AND [id number] 03:57:00 Test Item Value Reference Range Comments HEMOGLOBIN (BEAKER) (test mjey=342) 9.4 GM/DL 13.7-17.5 HEMATOCRIT (BEAKER) (test clcc=942) 28.9 % 40.1-51.0 HEMOGLOBIN AND [id number] 11:59:00 Test Item Value Reference Range Comments HEMOGLOBIN (BEAKER) (test jmty=323) 8.4 GM/DL 13.7-17.5 HEMATOCRIT (BEAKER) (test dvln=447) 24.7 % 40.1-51.0 [id number] 09:15:00 Test Item Value Reference Range Comments LIPASE (BEAKER) (test ehhl=125) 214 U/L 8-78 HEPATIC FUNCTION [id number] 06:09:00 Test Item Value Reference Range Comments TOTAL PROTEIN (BEAKER) (test wubd=475) 5.1 gm/dL 6.0-8.3 ALBUMIN (BEAKER) (test rlee=5311) 2.4 g/dL 3.5-5.0 BILIRUBIN TOTAL (BEAKER) (test gglp=940) 2.0 mg/dL 0.2-1.2 BILIRUBIN DIRECT (BEAKER) (test kktr=841) 1.4 mg/dL 0.1-0.5 ALKALINE PHOSPHATASE (BEAKER) (test tzav=990) 418 U/L 40-150 AST (SGOT) (BEAKER) (test tpce=905) 147 U/L 5-34 ALT (SGPT) (BEAKER) (test yjvi=943) 51 U/L 6-55 CBC (HEMOGRAM ONLY)[id number] 05:04:00 Test Item Value Reference Range Comments WHITE BLOOD CELL COUNT (BEAKER) (test bgtt=227) 4.8 K/ L 3.5-10.5 RED BLOOD CELL COUNT (BEAKER) (test ulmt=943) 2.41 M/ L 4.63-6.08 HEMOGLOBIN (BEAKER) (test iari=887) 8.1 GM/DL 13.7-17.5 HEMATOCRIT (BEAKER) (test cohm=237) 24.1 % 40.1-51.0 MEAN CORPUSCULAR VOLUME (BEAKER) (test whiu=190) 100.0 fL 79.0-92.2 MEAN CORPUSCULAR HEMOGLOBIN (BEAKER) (test 33.6 pg 25.7-32.2 fvuf=259) MEAN CORPUSCULAR HEMOGLOBIN CONC (BEAKER) (test 33.6 GM/DL 32.3-36.5 qzwf=299) RED CELL DISTRIBUTION WIDTH (BEAKER) (test 22.4 % 11.6-14.4 acmb=426) PLATELET COUNT (BEAKER) (test yfen=215) 135 K/CU MM 150-450 MEAN PLATELET VOLUME (BEAKER) (test lrov=743) 10.0 fL 9.4-12.4 NUCLEATED RED BLOOD CELLS (BEAKER) (test 1 /100 WBC 0-0 tdnb=905) BASIC METABOLIC [id number] 02:50:00 Test Item Value Reference Range Comments SODIUM (BEAKER) (test 137 meq/L 136-145 semu=039) POTASSIUM (BEAKER) (test 3.1 meq/L 3.5-5.1 naah=169) CHLORIDE (BEAKER) (test 104 meq/L 98-107 akjy=952) CO2 (BEAKER) (test 24 meq/L 22-29 wmcn=203) BLOOD UREA NITROGEN 3 mg/dL 7-21 (BEAKER) (test vqfw=476) CREATININE (BEAKER) (test 0.50 mg/dL 0.57-1.25 wmqu=948) GLUCOSE RANDOM (BEAKER) 124 mg/dL 70-105 (test fdph=762) CALCIUM (BEAKER) (test 6.5 mg/dL 8.4-10.2 hboe=246) EGFR (BEAKER) (test 193 mL/min/1.73 sq m ESTIMATED GFR IS NOT baux=9673) ACCURATE CREATININE CLEARANCE IN PREDICTING GLOMERULAR FILTRATION RATE. ESTIMATED GFR IS NOT APPLICABLE FOR DIALYSIS PATIENTS. [id number] 02:14:00 Test Item Value Reference Range Comments PHOSPHORUS (BEAKER) (test hmqh=657) 2.6 mg/dL 2.3-4.7 [id number] 02:14:00 Test Item Value Reference Range Comments MAGNESIUM (BEAKER) (test eevk=824) 1.9 mg/dL 1.6-2.6 HEMOGLOBIN AND [id number] 01:13:00 Test Item Value Reference Range Comments HEMOGLOBIN (BEAKER) (test ucdu=150) 8.1 GM/DL 13.7-17.5 HEMATOCRIT (BEAKER) (test kbkj=508) 23.8 % 40.1-51.0 POCT-GLUCOSE [id number] 20:56:00 Test Item Value Reference Range Comments POC-GLUCOSE METER (BEAKER) 105 mg/dL 70-110 TESTED AT [facility] [address] (test wkbq=9091) [facility] [address] COMPREHENSIVE METABOLIC [id number] 14:51:00 Test Item Value Reference Range Comments TOTAL PROTEIN (BEAKER) 6.0 gm/dL 6.0-8.3 (test lfda=137) ALBUMIN (BEAKER) (test 2.8 g/dL 3.5-5.0 nhre=9049) ALKALINE PHOSPHATASE 489 U/L 40-150 (BEAKER) (test yros=450) BILIRUBIN TOTAL (BEAKER) 2.7 mg/dL 0.2-1.2 (test abwg=238) SODIUM (BEAKER) (test 141 meq/L 136-145 ubps=098) POTASSIUM (BEAKER) (test 2.6 meq/L 3.5-5.1 lcld=497) CHLORIDE (BEAKER) (test 103 meq/L 98-107 eurp=762) CO2 (BEAKER) (test 28 meq/L 22-29 ymdz=640) BLOOD UREA NITROGEN 5 mg/dL 7-21 (BEAKER) (test elnm=521) CREATININE (BEAKER) (test 0.54 mg/dL 0.57-1.25 qqqn=869) GLUCOSE RANDOM (BEAKER) 88 mg/dL 70-105 (test riyw=991) CALCIUM (BEAKER) (test 7.1 mg/dL 8.4-10.2 zeoy=729) AST (SGOT) (BEAKER) (test 168 U/L 5-34 unys=344) ALT (SGPT) (BEAKER) (test 61 U/L 6-55 supn=938) EGFR (BEAKER) (test 176 mL/min/1.73 sq ESTIMATED GFR IS NOT zcjb=2801) m ACCURATE CREATININE CLEARANCE IN PREDICTING GLOMERULAR FILTRATION RATE. ESTIMATED GFR IS NOT APPLICABLE FOR DIALYSIS PATIENTS. Specimen slightly [id number] 14:51:00 Test Item Value Reference Range Comments PHOSPHORUS (BEAKER) (test ecsc=945) 0.9 mg/dL 2.3-4.7 [id number] 14:41:00 Test Item Value Reference Range Comments MAGNESIUM (BEAKER) (test tcjl=548) 1.3 mg/dL 1.6-2.6 [id number] 14:41:00 Test Item Value Reference Range Comments AMYLASE (BEAKER) (test eujs=534) 160 U/L 25-125 Specimen slightly ictericLACTATE DEHYDROGENASE (LDH)2019-02-12 14:41:00 Test Item Value Reference Range Comments LACTATE DEHYDROGENASE (BEAKER) (test aeuz=658) 572 U/L 125-220 [id number] 14:41:00 Test Item Value Reference Range Comments LIPASE (BEAKER) (test ibfh=817) 562 U/L 8-78 Specimen slightly [id number] 14:39:00 Test Item Value Reference Range Comments ETHANOL (BEAKER) (test zdic=674) < mg/dL <=10 [id number] 14:27:00 Test Item Value Reference Range Comments D-DIMER QUANTITATIVE (BEAKER) (test xawz=842) 4.23 MG/L FEU <0.50 Intended Use: The [...] of thrombosis is within 95-100% range.LACTIC ACID, [id number] 14:25:00 Test Item Value Reference Range Comments LACTATE BLOOD VENOUS (2) (BEAKER) (test 1.5 mmol/L 0.5-2.2 dfik=9430) [id number] 14:21:00 Test Item Value Reference Range Comments AMMONIA (BEAKER) (test oxdq=498) 50 mol/L 18-72 [id number] 14:17:00 Test Item Value Reference Range Comments PROTIME (BEAKER) (test uaol=304) 17.8 seconds 11.9-14.2 INR (BEAKER) (test vyap=909) 1.6 <=5.9 PARTIAL THROMBOPLASTIN TIME (BEAKER) (test 34.9 seconds 22.5-36.0 dosh=014) Effective 12/11/2018: PT Reference Range ChangeNew: 11.9-14.2 Previous: 11.7- 14.7RECOMMENDED COUMADIN/WARFARIN INR THERAPY RANGESSTANDARD DOSE: 2.0-3.0 Includes: PROPHYLAXIS for venous thrombosis, systemic embolization; TREATMENT for venous thrombosis and/or pulmonary embolus.HIGH RISK: Target INR is2.5-3.5 for patients wiht mechanical heart valves.[id number] 14:17:00 Test Item Value Reference Range Comments FIBRINOGEN LEVEL (BEAKER) (test dlrt=766) 304 mg/dl 225-434 CBC (HEMOGRAM ONLY)2019-02-12 14:13:00 Test Item Value Reference Range Comments WHITE BLOOD CELL COUNT 5.0 K/ L 3.5-10.5 (BEAKER) (test ngdr=972) RED BLOOD CELL COUNT (BEAKER) 2.64 M/ L 4.63-6.08 (test edwu=454) HEMOGLOBIN (BEAKER) (test 9.0 GM/DL 13.7-17.5 giiw=559) HEMATOCRIT (BEAKER) (test 27.0 % 40.1-51.0 yvaf=376) MEAN CORPUSCULAR VOLUME 102.3 fL 79.0-92.2 (BEAKER) (test jxtm=378) MEAN CORPUSCULAR HEMOGLOBIN 34.1 pg 25.7-32.2 (BEAKER) (test kwcw=917) MEAN CORPUSCULAR HEMOGLOBIN 33.3 GM/DL 32.3-36.5 CONC (BEAKER) (test gzwd=125) RED CELL DISTRIBUTION WIDTH % 11.6-14.4 Unable to report due to (BEAKER) (test mbsx=393) abnormal Platelet population distribution. PLATELET COUNT (BEAKER) (test 146 K/CU MM 150-450 svco=829) MEAN PLATELET VOLUME (BEAKER) 10.0 fL 9.4-12.4 (test zayp=641) NUCLEATED RED BLOOD CELLS 1 /100 WBC 0-0 (BEAKER) (test lhnr=918) CBC W/PLT COUNT & AUTO [id number] 05:36:00 Test Item Value Reference Range Comments WHITE BLOOD CELL COUNT (BEAKER) (test yzjy=940) 3.1 K/ L 3.5-10.5 RED BLOOD CELL COUNT (BEAKER) (test aulf=257) 3.39 M/ L 4.63-6.08 HEMOGLOBIN (BEAKER) (test vnxo=930) 11.5 GM/DL 13.7-17.5 HEMATOCRIT (BEAKER) (test qwhu=216) 33.7 % 40.1-51.0 MEAN CORPUSCULAR VOLUME (BEAKER) (test qiom=643) 99.4 fL 79.0-92.2 MEAN CORPUSCULAR HEMOGLOBIN (BEAKER) (test 33.9 pg 25.7-32.2 wikp=638) MEAN CORPUSCULAR HEMOGLOBIN CONC (BEAKER) (test 34.1 GM/DL 32.3-36.5 ngki=993) RED CELL DISTRIBUTION WIDTH (BEAKER) (test 12.8 % 11.6-14.4 zdql=693) PLATELET COUNT (BEAKER) (test sube=489) 130 K/CU MM 150-450 MEAN PLATELET VOLUME (BEAKER) (test bmil=207) 10.4 fL 9.4-12.4 NUCLEATED RED BLOOD CELLS (BEAKER) (test 0 /100 WBC 0-0 nxpl=340) NEUTROPHILS RELATIVE PERCENT (BEAKER) (test 51 % kklk=918) LYMPHOCYTES RELATIVE PERCENT (BEAKER) (test 31 % wfmk=406) MONOCYTES RELATIVE PERCENT (BEAKER) (test 12 % vkhg=364) EOSINOPHILS RELATIVE PERCENT (BEAKER) (test 4 % ppqn=736) BASOPHILS RELATIVE PERCENT (BEAKER) (test 1 % knpf=374) NEUTROPHILS ABSOLUTE COUNT (BEAKER) (test 1.61 K/ L 1.78-5.38 sxjp=267) LYMPHOCYTES ABSOLUTE COUNT (BEAKER) (test 0.98 K/ L 1.32-3.57 cidr=259) MONOCYTES ABSOLUTE COUNT (BEAKER) (test 0.38 K/ L 0.30-0.82 oino=465) EOSINOPHILS ABSOLUTE COUNT (BEAKER) (test 0.11 K/ L 0.04-0.54 pfyp=181) BASOPHILS ABSOLUTE COUNT (BEAKER) (test 0.04 K/ L 0.01-0.08 rctf=673) IMMATURE GRANULOCYTES-RELATIVE PERCENT (BEAKER) 1 % 0-1 (test dnur=1757) MR, ABDOMEN, [id number] 13:31:00FINAL REPORT MRCP, MRI of abdomen without [...] MDReport Verified Date/Time: 12/12/2018 13:31:00 Reading Location: [facility] B1 C013Y CT Body Reading Room COMPREHENSIVE METABOLIC [id number] 09:56:00 Test Item Value Reference Range Comments TOTAL PROTEIN (BEAKER) 5.5 gm/dL 6.0-8.3 (test vfql=556) ALBUMIN (BEAKER) (test 3.1 g/dL 3.5-5.0 avrz=4690) ALKALINE PHOSPHATASE 116 U/L 40-150 (BEAKER) (test feei=848) BILIRUBIN TOTAL (BEAKER) 1.9 mg/dL 0.2-1.2 (test bnpt=596) SODIUM (BEAKER) (test 139 meq/L 136-145 sjxa=329) POTASSIUM (BEAKER) (test 3.0 meq/L 3.5-5.1 rivp=769) CHLORIDE (BEAKER) (test 107 meq/L 98-107 qtju=694) CO2 (BEAKER) (test 23 meq/L 22-29 csch=078) BLOOD UREA NITROGEN 4 mg/dL 7-21 (BEAKER) (test mzvg=473) CREATININE (BEAKER) (test 0.56 mg/dL 0.57-1.25 dvmu=876) GLUCOSE RANDOM (BEAKER) 116 mg/dL 70-105 (test aopp=499) CALCIUM (BEAKER) (test 7.4 mg/dL 8.4-10.2 mkuu=950) AST (SGOT) (BEAKER) (test 297 U/L 5-34 mhwf=918) ALT (SGPT) (BEAKER) (test 173 U/L 6-55 bgzw=460) EGFR (BEAKER) (test 169 mL/min/1.73 sq ESTIMATED GFR IS NOT jdgr=7423) m ACCURATE CREATININE CLEARANCE IN PREDICTING GLOMERULAR FILTRATION RATE. ESTIMATED GFR IS NOT APPLICABLE FOR DIALYSIS PATIENTS. CBC W/PLT COUNT & AUTO [id number] 04:42:00 Test Item Value Reference Range Comments WHITE BLOOD CELL COUNT (BEAKER) (test ynvd=892) 3.1 K/ L 3.5-10.5 RED BLOOD CELL COUNT (BEAKER) (test wobj=676) 3.09 M/ L 4.63-6.08 HEMOGLOBIN (BEAKER) (test tlbl=196) 10.7 GM/DL 13.7-17.5 HEMATOCRIT (BEAKER) (test mqob=524) 30.5 % 40.1-51.0 MEAN CORPUSCULAR VOLUME (BEAKER) (test mtxx=924) 98.7 fL 79.0-92.2 MEAN CORPUSCULAR HEMOGLOBIN (BEAKER) (test 34.6 pg 25.7-32.2 tzzh=430) MEAN CORPUSCULAR HEMOGLOBIN CONC (BEAKER) (test 35.1 GM/DL 32.3-36.5 koyy=615) RED CELL DISTRIBUTION WIDTH (BEAKER) (test 12.4 % 11.6-14.4 gika=429) PLATELET COUNT (BEAKER) (test nczo=503) 99 K/CU MM 150-450 MEAN PLATELET VOLUME (BEAKER) (test corx=949) 11.0 fL 9.4-12.4 NUCLEATED RED BLOOD CELLS (BEAKER) (test 0 /100 WBC 0-0 nvvx=969) NEUTROPHILS RELATIVE PERCENT (BEAKER) (test 60 % yqtj=224) LYMPHOCYTES RELATIVE PERCENT (BEAKER) (test 26 % qyhn=623) MONOCYTES RELATIVE PERCENT (BEAKER) (test 11 % xave=507) EOSINOPHILS RELATIVE PERCENT (BEAKER) (test 2 % xrtw=007) BASOPHILS RELATIVE PERCENT (BEAKER) (test 1 % pldj=829) NEUTROPHILS ABSOLUTE COUNT (BEAKER) (test 1.84 K/ L 1.78-5.38 rrxd=707) LYMPHOCYTES ABSOLUTE COUNT (BEAKER) (test 0.81 K/ L 1.32-3.57 boor=061) MONOCYTES ABSOLUTE COUNT (BEAKER) (test tzvl=524) 0.34 K/ L 0.30-0.82 EOSINOPHILS ABSOLUTE COUNT (BEAKER) (test 0.06 K/ L 0.04-0.54 icxv=111) BASOPHILS ABSOLUTE COUNT (BEAKER) (test mlen=383) 0.03 K/ L 0.01-0.08 IMMATURE GRANULOCYTES-RELATIVE PERCENT (BEAKER) 0 % 0-1 (test xmud=6822) FL, ESOPH, SWALLOW FUNCTION, WITH CINE OR [id number] 12:02:00Reason for exam:->pneumomediastinum, rule out esophageal perforationFINAL [...] Verified Date/Time: 12/11/2018 12:02: 17 Reading Location: [address] Ortho Consult Reading Room BASI METABOLIC [id number] 07:31:00 Test Item Value Reference Range Comments SODIUM (BEAKER) (test 139 meq/L 136-145 jgsu=436) POTASSIUM (BEAKER) (test 3.4 meq/L 3.5-5.1 Specimen slightly boqg=750) hemolyzed CHLORIDE (BEAKER) (test 103 meq/L 98-107 qiwb=856) CO2 (BEAKER) (test 20 meq/L 22-29 tizd=462) BLOOD UREA NITROGEN 18 mg/dL 7-21 (BEAKER) (test nqia=180) CREATININE (BEAKER) (test 0.73 mg/dL 0.57-1.25 Specimen slightly qzaj=080) hemolyzed GLUCOSE RANDOM (BEAKER) 67 mg/dL 70-105 (test jkdn=925) CALCIUM (BEAKER) (test 8.6 mg/dL 8.4-10.2 otnf=891) EGFR (BEAKER) (test 125 mL/min/1.73 sq m ESTIMATED GFR IS NOT oeaf=6863) ACCURATE CREATININE CLEARANCE IN PREDICTING GLOMERULAR FILTRATION RATE. ESTIMATED GFR IS NOT APPLICABLE FOR DIALYSIS PATIENTS. CBC W/PLT COUNT & AUTO [id number] 07:12:00 Test Item Value Reference Range Comments WHITE BLOOD CELL COUNT (BEAKER) (test xabk=898) 4.6 K/ L 3.5-10.5 RED BLOOD CELL COUNT (BEAKER) (test ofsu=565) 3.19 M/ L 4.63-6.08 HEMOGLOBIN (BEAKER) (test devw=150) 11.1 GM/DL 13.7-17.5 HEMATOCRIT (BEAKER) (test gikz=996) 31.0 % 40.1-51.0 MEAN CORPUSCULAR VOLUME (BEAKER) (test zfbv=759) 97.2 fL 79.0-92.2 MEAN CORPUSCULAR HEMOGLOBIN (BEAKER) (test 34.8 pg 25.7-32.2 dyyd=776) MEAN CORPUSCULAR HEMOGLOBIN CONC (BEAKER) (test 35.8 GM/DL 32.3-36.5 bobs=916) RED CELL DISTRIBUTION WIDTH (BEAKER) (test 13.0 % 11.6-14.4 dvle=535) PLATELET COUNT (BEAKER) (test yjob=730) 103 K/CU MM 150-450 MEAN PLATELET VOLUME (BEAKER) (test mxsv=579) 11.0 fL 9.4-12.4 NUCLEATED RED BLOOD CELLS (BEAKER) (test 0 /100 WBC 0-0 zwdd=597) NEUTROPHILS RELATIVE PERCENT (BEAKER) (test 73 % lkew=587) LYMPHOCYTES RELATIVE PERCENT (BEAKER) (test 16 % kpke=338) MONOCYTES RELATIVE PERCENT (BEAKER) (test 9 % odzb=717) EOSINOPHILS RELATIVE PERCENT (BEAKER) (test 1 % htqv=004) BASOPHILS RELATIVE PERCENT (BEAKER) (test 0 % bmxj=729) NEUTROPHILS ABSOLUTE COUNT (BEAKER) (test 3.36 K/ L 1.78-5.38 upxs=630) LYMPHOCYTES ABSOLUTE COUNT (BEAKER) (test 0.75 K/ L 1.32-3.57 fjwd=431) MONOCYTES ABSOLUTE COUNT (BEAKER) (test 0.41 K/ L 0.30-0.82 jfsi=171) EOSINOPHILS ABSOLUTE COUNT (BEAKER) (test 0.04 K/ L 0.04-0.54 qcnv=540) BASOPHILS ABSOLUTE COUNT (BEAKER) (test 0.02 K/ L 0.01-0.08 kkof=995) IMMATURE GRANULOCYTES-RELATIVE PERCENT (BEAKER) 1 % 0-1 (test wpns=2186) RAD, CHEST, 1 VIEW, NON [id number] 20:13:00Reason for exam:-> pneumomediastinumShould this be performed [...] Verified Date /Time: 12/10/2018 20:13:39 Reading Location: [address] Reading Room [id number] 19:12:00 Test Item Value Reference Range Comments MAGNESIUM (BEAKER) (test 1.8 mg/dL 1.6-2.6 Specimen slightly hemolyzed lsib=051) COMPREHENSIVE METABOLIC [id number] 19:12:00 Test Item Value Reference Range Comments TOTAL PROTEIN (BEAKER) 6.3 gm/dL 6.0-8.3 Specimen slightly (test pbrb=211) hemolyzed ALBUMIN (BEAKER) (test 3.7 g/dL 3.5-5.0 Specimen slightly wrsr=0238) hemolyzed ALKALINE PHOSPHATASE 129 U/L 40-150 (BEAKER) (test vuks=532) BILIRUBIN TOTAL (BEAKER) 2.9 mg/dL 0.2-1.2 Specimen slightly (test orba=611) hemolyzed SODIUM (BEAKER) (test 137 meq/L 136-145 woce=765) POTASSIUM (BEAKER) (test 2.7 meq/L 3.5-5.1 Specimen slightly fgpq=799) hemolyzed CHLORIDE (BEAKER) (test 99 meq/L 98-107 kjsq=672) CO2 (BEAKER) (test 23 meq/L 22-29 apnk=121) BLOOD UREA NITROGEN 22 mg/dL 7-21 (BEAKER) (test ystt=665) CREATININE (BEAKER) (test 1.28 mg/dL 0.57-1.25 Specimen slightly hiit=301) hemolyzed GLUCOSE RANDOM (BEAKER) 78 mg/dL 70-105 (test gfxi=203) CALCIUM (BEAKER) (test 8.5 mg/dL 8.4-10.2 ejkl=192) AST (SGOT) (BEAKER) (test 502 U/L 5-34 Specimen slightly ekvd=814) hemolyzed ALT (SGPT) (BEAKER) (test 225 U/L 6-55 Specimen slightly rhlp=796) hemolyzed EGFR (BEAKER) (test 65 mL/min/1.73 sq m ESTIMATED GFR IS NOT veew=1134) ACCURATE CREATININE CLEARANCE IN PREDICTING GLOMERULAR FILTRATION RATE. ESTIMATED GFR IS NOT APPLICABLE FOR DIALYSIS PATIENTS. Specimen slightly ictericPROTHROMBIN [id number] 18:53:00 Test Item Value Reference Range Comments PROTIME (BEAKER) (test lxgu=598) 15.8 seconds 11.7-14.7 INR (BEAKER) (test nluu=955) 1.3 <=5.9 RECOMMENDED COUMADIN/WARFARIN INR THERAPY RANGESSTANDARD DOSE: 2.0 - 3.0 Includes: PROPHYLAXIS forvenous thrombosis, systemic embolization; TREATMENT for venous thrombosis and/or pulmonary embolus.HIGH RISK: Target INR is 2.5-3.5 for patients with mechanical heart valves.CBC W/PLT COUNT & AUTO [id number] 18:49:00 Test Item Value Reference Range Comments WHITE BLOOD CELL COUNT (BEAKER) (test qdnz=251) 6.0 K/ L 3.5-10.5 RED BLOOD CELL COUNT (BEAKER) (test aocx=555) 3.44 M/ L 4.63-6.08 HEMOGLOBIN (BEAKER) (test ffhi=268) 11.6 GM/DL 13.7-17.5 HEMATOCRIT (BEAKER) (test finw=643) 34.1 % 40.1-51.0 MEAN CORPUSCULAR VOLUME (BEAKER) (test gjmp=616) 99.1 fL 79.0-92.2 MEAN CORPUSCULAR HEMOGLOBIN (BEAKER) (test 33.7 pg 25.7-32.2 ksyu=072) MEAN CORPUSCULAR HEMOGLOBIN CONC (BEAKER) (test 34.0 GM/DL 32.3-36.5 hadb=586) RED CELL DISTRIBUTION WIDTH (BEAKER) (test 13.1 % 11.6-14.4 ykpx=657) PLATELET COUNT (BEAKER) (test uosc=933) 109 K/CU MM 150-450 MEAN PLATELET VOLUME (BEAKER) (test fccu=833) 11.0 fL 9.4-12.4 NUCLEATED RED BLOOD CELLS (BEAKER) (test 0 /100 WBC 0-0 vxzp=399) NEUTROPHILS RELATIVE PERCENT (BEAKER) (test 81 % kcxy=750) LYMPHOCYTES RELATIVE PERCENT (BEAKER) (test 12 % rnfa=202) MONOCYTES RELATIVE PERCENT (BEAKER) (test 7 % eazc=430) EOSINOPHILS RELATIVE PERCENT (BEAKER) (test 0 % iisw=104) BASOPHILS RELATIVE PERCENT (BEAKER) (test 0 % soft=666) NEUTROPHILS ABSOLUTE COUNT (BEAKER) (test 4.84 K/ L 1.78-5.38 zefm=246) LYMPHOCYTES ABSOLUTE COUNT (BEAKER) (test 0.72 K/ L 1.32-3.57 qgis=563) MONOCYTES ABSOLUTE COUNT (BEAKER) (test 0.41 K/ L 0.30-0.82 ekns=285) EOSINOPHILS ABSOLUTE COUNT (BEAKER) (test 0.01 K/ L 0.04-0.54 nzqh=057) BASOPHILS ABSOLUTE COUNT (BEAKER) (test 0.02 K/ L 0.01-0.08 zlsv=522) IMMATURE GRANULOCYTES-RELATIVE PERCENT (BEAKER) 0 % 0-1 (test lgrd=5991) BLOOD [id number] 20:01:00 Test Item Value Reference Range Comments CULTURE (BEAKER) (test szou=7812) No growth in 5 days BLOOD [id number] 20:01:00 Test Item Value Reference Range Comments CULTURE (BEAKER) (test mewq=0969) No growth in 5 days RAD, CHEST, 1 VIEW, NON [id number] 13:13:00Reason for exam:->evalute for pneumoniaShould this be performed at the bedside?->YesAddendum BeginsREPORT STATUS:A Addendum:Clinical diagnosis alcohol withdrawalsyndrome, electrolyte disturbances, elevated liver function tests, pneumonia, Signed: Marilu Sharpe MDReport Verified Date/Time: 11/01/2018 13:13: 23 Reading Location: [address] Consult Reading RoomAddendum EndsFINAL REPORT Chest [...] MDReport Verified Date/Time: 10/28 15:36:38 Reading Location: [facility] C013W Consult Reading Room U/S, ABDOMINAL, WITH [id number] 10:43:00Reason for exam:->evaluate for portal hypertension, cirrhosis, [...] prominent at 8 mm.Unremarkable abdominal Dopplerultrasound. Signed: Mairlu Sharpe MDReport Verified Date/Time: 10/31/2018 10:43:58 Reading Location: [facility] P006J Ultrasound Reading Room COMPREHENSIVE METABOLIC [id number] 06:57:00 Test Item Value Reference Range Comments TOTAL PROTEIN (BEAKER) 6.3 gm/dL 6.0-8.3 (test sram=037) ALBUMIN (BEAKER) (test 3.4 g/dL 3.5-5.0 btbv=6679) ALKALINE PHOSPHATASE 165 U/L 40-150 (BEAKER) (test oouj=211) BILIRUBIN TOTAL (BEAKER) 0.6 mg/dL 0.2-1.2 (test bves=623) SODIUM (BEAKER) (test 140 meq/L 136-145 gnkk=960) POTASSIUM (BEAKER) (test 3.6 meq/L 3.5-5.1 sxyk=019) CHLORIDE (BEAKER) (test 102 meq/L 98-107 zpwp=676) CO2 (BEAKER) (test 29 meq/L 22-29 ayld=020) BLOOD UREA NITROGEN 3 mg/dL 7-21 (BEAKER) (test aahm=461) CREATININE (BEAKER) (test 0.55 mg/dL 0.57-1.25 wxqc=979) GLUCOSE RANDOM (BEAKER) 89 mg/dL 70-105 (test mmxy=583) CALCIUM (BEAKER) (test 9.2 mg/dL 8.4-10.2 mtee=052) AST (SGOT) (BEAKER) (test 184 U/L 5-34 pnod=746) ALT (SGPT) (BEAKER) (test 156 U/L 6-55 rldq=324) EGFR (BEAKER) (test 173 mL/min/1.73 sq ESTIMATED GFR IS NOT liru=4826) m ACCURATE CREATININE CLEARANCE IN PREDICTING GLOMERULAR FILTRATION RATE. ESTIMATED GFR IS NOT APPLICABLE FOR DIALYSIS PATIENTS. HEMOGLOBIN [id number] 09:30:00 Test Item Value Reference Range Comments HEMOGLOBIN A1C (BEAKER) (test ilza=394) 4.9 % 4.3-6.1 COMPREHENSIVE METABOLIC [id number] 05:17:00 Test Item Value Reference Range Comments TOTAL PROTEIN (BEAKER) 6.5 gm/dL 6.0-8.3 (test hagd=724) ALBUMIN (BEAKER) (test 3.6 g/dL 3.5-5.0 lnxj=4609) ALKALINE PHOSPHATASE 170 U/L 40-150 (BEAKER) (test xbhb=379) BILIRUBIN TOTAL (BEAKER) 0.9 mg/dL 0.2-1.2 (test blkn=383) SODIUM (BEAKER) (test 141 meq/L 136-145 ebnl=406) POTASSIUM (BEAKER) (test 3.5 meq/L 3.5-5.1 jyjw=324) CHLORIDE (BEAKER) (test 104 meq/L 98-107 gele=621) CO2 (BEAKER) (test 26 meq/L 22-29 ekqt=201) BLOOD UREA NITROGEN 4 mg/dL 7-21 (BEAKER) (test uzfv=290) CREATININE (BEAKER) (test 0.55 mg/dL 0.57-1.25 uuwh=455) GLUCOSE RANDOM (BEAKER) 89 mg/dL 70-105 (test xeau=716) CALCIUM (BEAKER) (test 9.3 mg/dL 8.4-10.2 pubh=097) AST (SGOT) (BEAKER) (test 167 U/L 5-34 tczb=931) ALT (SGPT) (BEAKER) (test 156 U/L 6-55 kmqf=207) EGFR (BEAKER) (test 173 mL/min/1.73 sq ESTIMATED GFR IS NOT zklc=8865) m ACCURATE CREATININE CLEARANCE IN PREDICTING GLOMERULAR FILTRATION RATE. ESTIMATED GFR IS NOT APPLICABLE FOR DIALYSIS PATIENTS. CBC W/PLT COUNT & AUTO [id number] 04:53:00 Test Item Value Reference Range Comments WHITE BLOOD CELL COUNT (BEAKER) (test mkth=729) 3.4 K/ L 3.5-10.5 RED BLOOD CELL COUNT (BEAKER) (test povz=056) 3.45 M/ L 4.63-6.08 HEMOGLOBIN (BEAKER) (test bexq=869) 11.8 GM/DL 13.7-17.5 HEMATOCRIT (BEAKER) (test gpki=817) 34.4 % 40.1-51.0 MEAN CORPUSCULAR VOLUME (BEAKER) (test cwnt=878) 99.7 fL 79.0-92.2 MEAN CORPUSCULAR HEMOGLOBIN (BEAKER) (test 34.2 pg 25.7-32.2 vuyb=705) MEAN CORPUSCULAR HEMOGLOBIN CONC (BEAKER) (test 34.3 GM/DL 32.3-36.5 ccnp=710) RED CELL DISTRIBUTION WIDTH (BEAKER) (test 12.2 % 11.6-14.4 zskj=004) PLATELET COUNT (BEAKER) (test epqs=514) 175 K/CU MM 150-450 MEAN PLATELET VOLUME (BEAKER) (test yiof=102) 10.3 fL 9.4-12.4 NUCLEATED RED BLOOD CELLS (BEAKER) (test 0 /100 WBC 0-0 cxic=434) NEUTROPHILS RELATIVE PERCENT (BEAKER) (test 55 % pyqz=663) LYMPHOCYTES RELATIVE PERCENT (BEAKER) (test 30 % cweb=382) MONOCYTES RELATIVE PERCENT (BEAKER) (test 11 % wsrn=318) EOSINOPHILS RELATIVE PERCENT (BEAKER) (test 3 % ghuj=315) BASOPHILS RELATIVE PERCENT (BEAKER) (test 1 % ucru=783) NEUTROPHILS ABSOLUTE COUNT (BEAKER) (test 1.89 K/ L 1.78-5.38 tfcg=351) LYMPHOCYTES ABSOLUTE COUNT (BEAKER) (test 1.03 K/ L 1.32-3.57 ungj=980) MONOCYTES ABSOLUTE COUNT (BEAKER) (test 0.39 K/ L 0.30-0.82 vmqw=141) EOSINOPHILS ABSOLUTE COUNT (BEAKER) (test 0.09 K/ L 0.04-0.54 grhv=496) BASOPHILS ABSOLUTE COUNT (BEAKER) (test 0.03 K/ L 0.01-0.08 anea=545) IMMATURE GRANULOCYTES-RELATIVE PERCENT (BEAKER) 0 % 0-1 (test qnsm=2761) LIPID [id number] 17:30:00 Test Item Value Reference Range Comments TRIGLYCERIDES (BEAKER) (test leec=949) 90 mg/dL CHOLESTEROL (BEAKER) (test lwdm=818) 140 mg/dL HDL CHOLESTEROL (BEAKER) (test lnuo=142) 37 mg/dL LDL CHOLESTEROL CALCULATED (BEAKER) (test 85 mg/dL isml=192) Triglyceride Reference Range: Low Risk <150 Borderline 150- 199 High Risk 200-499 Very High Risk >=500Cholesterol Reference Range: Low Risk <200 Borderline 200-239 High Risk > 240HDL Cholesterol Reference Range: Low Risk >=60 High Risk <40LDL Cholesterol Reference Range: Optimal <100 Near Optimal 100-129 Borderline 130-159 High 160-189 Very High >=190HEPATITIS C PCR, [id number] 14:57:00 Test Item Value Reference Range Comments HCV RESULT COMPONENT (BEAKER) HCV RNA not detected HCV RNA not detected (test htwc=3754) This test uses a Real-Time Polymerase Chain Reaction (RT-PCR) methodology and was performed using [employer] Ampliprep/MARIANO TaqMan HCV test kit version 2.0 ( [employer]).Reportable range for this assay is 15 - 100,000, 000 IU per mL (1.18 - 8.00 Log IU/mL).RAD, ABDOMEN/KUB, 1 VIEW [id number] 14: 17:00Reason for exam:->abd distensionFINAL REPORT TECHNIQUE: Supine radiographs of the abdomen dated 10/29/2018. HISTORY: Abdominal distention. COMPARISON: None IMPRESSION:No air-filled, dilated loops of bowel to suggest obstruction. No free intraperitoneal air. No abnormal soft tissue mass or calcification. Signed:Nancy Concepcioneport Verified Date/ Time: 10/29/2018 14:17:17 Reading Location: [facility] Radiology Reading Room [id number] 13:28:00 Test Item Value Reference Range Comments RPR SCREEN (BEAKER) (test fkjw=411) Nonreactive Nonreactive [id number] 05:12:00 Test Item Value Reference Range Comments PHOSPHORUS (BEAKER) (test mlsh=055) 2.5 mg/dL 2.3-4.7 COMPREHENSIVE METABOLIC [id number] 05:12:00 Test Item Value Reference Range Comments TOTAL PROTEIN (BEAKER) 6.9 gm/dL 6.0-8.3 (test elvt=871) ALBUMIN (BEAKER) (test 3.9 g/dL 3.5-5.0 sshl=7533) ALKALINE PHOSPHATASE 200 U/L 40-150 (BEAKER) (test mfud=968) BILIRUBIN TOTAL (BEAKER) 1.2 mg/dL 0.2-1.2 (test gnqc=770) SODIUM (BEAKER) (test 137 meq/L 136-145 brsj=269) POTASSIUM (BEAKER) (test 3.3 meq/L 3.5-5.1 gndo=555) CHLORIDE (BEAKER) (test 97 meq/L 98-107 srby=734) CO2 (BEAKER) (test 27 meq/L 22-29 wzaj=955) BLOOD UREA NITROGEN 3 mg/dL 7-21 (BEAKER) (test fcaq=494) CREATININE (BEAKER) (test 0.57 mg/dL 0.57-1.25 ummj=899) GLUCOSE RANDOM (BEAKER) 108 mg/dL 70-105 (test qqtt=945) CALCIUM (BEAKER) (test 9.4 mg/dL 8.4-10.2 tyks=895) AST (SGOT) (BEAKER) (test 263 U/L 5-34 vfyw=269) ALT (SGPT) (BEAKER) (test 215 U/L 6-55 oman=892) EGFR (BEAKER) (test 166 mL/min/1.73 sq ESTIMATED GFR IS NOT feld=6560) m ACCURATE CREATININE CLEARANCE IN PREDICTING GLOMERULAR FILTRATION RATE. ESTIMATED GFR IS NOT APPLICABLE FOR DIALYSIS PATIENTS. PROTHROMBIN [id number] 04:53:00 Test Item Value Reference Range Comments PROTIME (BEAKER) (test fbmw=063) 16.0 seconds 11.7-14.7 INR (BEAKER) (test hhgg=074) 1.3 <=5.9 RECOMMENDED COUMADIN/WARFARIN INR THERAPY RANGESSTANDARD DOSE: 2.0 - 3.0 Includes: PROPHYLAXIS forvenous thrombosis, systemic embolization; TREATMENT for venous thrombosis and/or pulmonary embolus.HIGH RISK: Target INR is 2.5-3.5 for patients with mechanical heart valves.URINALYSIS W/ REFLEX URINE [id number] 18:43:00 Test Item Value Reference Range Comments COLOR (BEAKER) (test kywj=793) Yellow CLARITY (BEAKER) (test rtsv=082) Clear SPECIFIC GRAVITY UA (BEAKER) (test surv=413) 1.007 1.001-1.035 PH UA (BEAKER) (test yauo=027) 7.5 5.0-8.0 PROTEIN UA (BEAKER) (test mewa=655) 20 mg/dL Negative GLUCOSE UA (BEAKER) (test jedo=110) Negative Negative KETONES UA (BEAKER) (test ynpt=829) 20 mg/dL Negative BILIRUBIN UA (BEAKER) (test whpy=156) Negative Negative BLOOD UA (BEAKER) (test kolf=624) Trace Negative NITRITE UA (BEAKER) (test yncp=996) Negative Negative LEUKOCYTE ESTERASE UA (BEAKER) (test uegz=884) Negative Negative UROBILINOGEN UA (BEAKER) (test dafc=564) 2.0 mg/dL 0.2-1.0 RBC UA (BEAKER) (test ugre=211) 3 /HPF WBC UA (BEAKER) (test itsf=266) < /HPF MUCUS (BEAKER) (test cuzb=9027) Rare SOURCE(BEAKER) (test qdne=5482) VITAMIN B12 AND [id number] 15:08:00 Test Item Value Reference Range Comments VITAMIN B12 (BEAKER) (test wqhy=060) 1678 pg/mL 213-816 FOLATE (BEAKER) (test rbgw=085) 19.4 ng/mL >=7.0 [id number] 14:48:00 Test Item Value Reference Range Comments FERRITIN (BEAKER) (test ioko=381) 1698 ng/mL 5-275 IRON, TIBC, % SAT. (WITHOUT FERRITIN)[id number] 13:26:00 Test Item Value Reference Range Comments IRON (BEAKER) (test rkom=893) 44.0 ug/dL 40.0-160.0 TOTAL IRON BINDING CAPACITY (BEAKER) (test 186 ug/dL 250-450 kqbm=584) IRON % SATURATION (2) (BEAKER) (test plkf=9555) 24 % 20-55 HEPATITIS B SURFACE [id number] 13:26:00 Test Item Value Reference Range Comments HEPATITIS B SURFACE ANTIGEN (2) (BEAKER) (test Nonreactive Nonreactive whvu=6727) HEPATITIS C [id number] 13:26:00 Test Item Value Reference Range Comments HEPATITIS C ANTIBODY (BEAKER) (test tyko=094) Nonreactive Nonreactive HIV-1 ANTIGEN WITH HIV-1/2 [id number] 13:26:00 Test Item Value Reference Range Comments HIV-1 ANTIGEN WITH HIV 1\T\2 ANTIBODY (2) Nonreactive Nonreactive (BEAKER) (test brrs=3214) HEPATITIS B SURFACE [id number] 13:19:00 Test Item Value Reference Range Comments HEPATITIS B SURFACE ANTIBODY (BEAKER) (test 34.5 mIU/mL <8.0 xrfn=230) HEPATITIS A ANTIBODY, [id number] 13:19:00 Test Item Value Reference Range Comments HEPATITIS A IGM ANTIBODY (BEAKER) (test Nonreactive Nonreactive vgrc=180) HEPATITIS B CORE ANTIBODY, [id number] 13:19:00 Test Item Value Reference Range Comments HEPATITIS B CORE TOTAL ANTIBODY (BEAKER) (test Nonreactive Nonreactive crxo=341) HEPATITIS A ANTIBODY, [id number] 13:19:00 Test Item Value Reference Range Comments HEPATITIS A IGG ANTIBODY (BEAKER) (test Nonreactive Nonreactive eaog=3811) PROTHROMBIN [id number] 13:00:00 Test Item Value Reference Range Comments PROTIME (BEAKER) (test gkal=745) 15.5 seconds 11.7-14.7 INR (BEAKER) (test fidk=536) 1.2 <=5.9 RECOMMENDED COUMADIN/WARFARIN INR THERAPY RANGESSTANDARD DOSE: 2.0 - 3.0 Includes: PROPHYLAXIS forvenous thrombosis, systemic embolization; TREATMENT for venous thrombosis and/or pulmonary embolus.HIGH RISK: Target INR is 2.5-3.5 for patients with mechanical heart valves.[id number] 03:31:00 Test Item Value Reference Range Comments PHOSPHORUS (BEAKER) (test gdrb=811) 3.5 mg/dL 2.3-4.7 [id number] 03:31:00 Test Item Value Reference Range Comments MAGNESIUM (BEAKER) (test ghca=561) 1.5 mg/dL 1.6-2.6 COMPREHENSIVE METABOLIC [id number] 03:31:00 Test Item Value Reference Range Comments TOTAL PROTEIN (BEAKER) 6.5 gm/dL 6.0-8.3 (test mqdy=033) ALBUMIN (BEAKER) (test 3.7 g/dL 3.5-5.0 vawr=4041) ALKALINE PHOSPHATASE 200 U/L 40-150 (BEAKER) (test kqdu=989) BILIRUBIN TOTAL (BEAKER) 0.8 mg/dL 0.2-1.2 (test qhui=652) SODIUM (BEAKER) (test 142 meq/L 136-145 cnmq=023) POTASSIUM (BEAKER) (test 3.1 meq/L 3.5-5.1 hyuq=267) CHLORIDE (BEAKER) (test 103 meq/L 98-107 pqrn=214) CO2 (BEAKER) (test 24 meq/L 22-29 snoo=997) BLOOD UREA NITROGEN 4 mg/dL 7-21 (BEAKER) (test nkdn=253) CREATININE (BEAKER) (test 0.55 mg/dL 0.57-1.25 dxhi=668) GLUCOSE RANDOM (BEAKER) 100 mg/dL 70-105 (test yavb=081) CALCIUM (BEAKER) (test 8.5 mg/dL 8.4-10.2 wnhc=340) AST (SGOT) (BEAKER) (test 318 U/L 5-34 xjqs=179) ALT (SGPT) (BEAKER) (test 244 U/L 6-55 hbft=774) EGFR (BEAKER) (test 173 mL/min/1.73 sq ESTIMATED GFR IS NOT hxvp=4216) m ACCURATE CREATININE CLEARANCE IN PREDICTING GLOMERULAR FILTRATION RATE. ESTIMATED GFR IS NOT APPLICABLE FOR DIALYSIS PATIENTS. CBC W/PLT COUNT & AUTO [id number] 03:03:00 Test Item Value Reference Range Comments WHITE BLOOD CELL COUNT (BEAKER) (test iwhb=625) 4.2 K/ L 3.5-10.5 RED BLOOD CELL COUNT (BEAKER) (test palq=076) 3.61 M/ L 4.63-6.08 HEMOGLOBIN (BEAKER) (test hgvb=732) 12.3 GM/DL 13.7-17.5 HEMATOCRIT (BEAKER) (test nlhb=396) 35.9 % 40.1-51.0 MEAN CORPUSCULAR VOLUME (BEAKER) (test mgao=843) 99.4 fL 79.0-92.2 MEAN CORPUSCULAR HEMOGLOBIN (BEAKER) (test 34.1 pg 25.7-32.2 ahep=141) MEAN CORPUSCULAR HEMOGLOBIN CONC (BEAKER) (test 34.3 GM/DL 32.3-36.5 vjnd=001) RED CELL DISTRIBUTION WIDTH (BEAKER) (test 12.3 % 11.6-14.4 ytrl=583) PLATELET COUNT (BEAKER) (test cepd=849) 122 K/CU MM 150-450 MEAN PLATELET VOLUME (BEAKER) (test ntaz=453) 9.8 fL 9.4-12.4 NUCLEATED RED BLOOD CELLS (BEAKER) (test 0 /100 WBC 0-0 bfhy=740) NEUTROPHILS RELATIVE PERCENT (BEAKER) (test 70 % pnmk=673) LYMPHOCYTES RELATIVE PERCENT (BEAKER) (test 17 % aqnm=470) MONOCYTES RELATIVE PERCENT (BEAKER) (test 11 % qnvi=830) EOSINOPHILS RELATIVE PERCENT (BEAKER) (test 1 % hkgm=870) BASOPHILS RELATIVE PERCENT (BEAKER) (test 1 % lpqd=077) NEUTROPHILS ABSOLUTE COUNT (BEAKER) (test 2.94 K/ L 1.78-5.38 frhv=358) LYMPHOCYTES ABSOLUTE COUNT (BEAKER) (test 0.73 K/ L 1.32-3.57 bxlk=512) MONOCYTES ABSOLUTE COUNT (BEAKER) (test 0.45 K/ L 0.30-0.82 pmmk=390) EOSINOPHILS ABSOLUTE COUNT (BEAKER) (test 0.04 K/ L 0.04-0.54 vezy=686) BASOPHILS ABSOLUTE COUNT (BEAKER) (test 0.02 K/ L 0.01-0.08 lblw=857) IMMATURE GRANULOCYTES-RELATIVE PERCENT (BEAKER) 1 % 0-1 (test mebx=3499) POCT-GLUCOSE [id number] 12:15:00 Test Item Value Reference Range Comments POC-GLUCOSE METER (BEAKER) 99 mg/dL 70-110 TESTED AT [facility] [address] [facility] (test xfvp=0384) [facility] [address] [id number] 06:15:00 Test Item Value Reference Range Comments MAGNESIUM (BEAKER) (test pjmd=827) 1.8 mg/dL 1.6-2.6 COMPREHENSIVE METABOLIC [id number] 06:15:00 Test Item Value Reference Range Comments TOTAL PROTEIN (BEAKER) 6.6 gm/dL 6.0-8.3 (test qenb=695) ALBUMIN (BEAKER) (test 3.6 g/dL 3.5-5.0 mxeh=6359) ALKALINE PHOSPHATASE 149 U/L 40-150 (BEAKER) (test nulx=869) BILIRUBIN TOTAL (BEAKER) 0.8 mg/dL 0.2-1.2 (test qmny=208) SODIUM (BEAKER) (test 135 meq/L 136-145 qrot=346) POTASSIUM (BEAKER) (test 3.6 meq/L 3.5-5.1 jxjc=945) CHLORIDE (BEAKER) (test 98 meq/L 98-107 gicq=143) CO2 (BEAKER) (test 26 meq/L 22-29 hodf=383) BLOOD UREA NITROGEN 8 mg/dL 7-21 (BEAKER) (test qysa=360) CREATININE (BEAKER) (test 0.57 mg/dL 0.57-1.25 zsvi=490) GLUCOSE RANDOM (BEAKER) 100 mg/dL 70-105 (test eyur=031) CALCIUM (BEAKER) (test 9.5 mg/dL 8.4-10.2 tzlz=559) AST (SGOT) (BEAKER) (test 155 U/L 5-34 yezp=235) ALT (SGPT) (BEAKER) (test 151 U/L 6-55 vjgc=865) EGFR (BEAKER) (test 166 mL/min/1.73 sq ESTIMATED GFR IS NOT ycjm=7557) m ACCURATE CREATININE CLEARANCE IN PREDICTING GLOMERULAR FILTRATION RATE. ESTIMATED GFR IS NOT APPLICABLE FOR DIALYSIS PATIENTS. CBC W/PLT COUNT & AUTO [id number] 05:30:00 Test Item Value Reference Range Comments WHITE BLOOD CELL COUNT (BEAKER) (test fgxy=688) 5.1 K/ L 3.5-10.5 RED BLOOD CELL COUNT (BEAKER) (test cwef=987) 3.81 M/ L 4.63-6.08 HEMOGLOBIN (BEAKER) (test cnxh=839) 13.1 GM/DL 13.7-17.5 HEMATOCRIT (BEAKER) (test mnzn=943) 37.6 % 40.1-51.0 MEAN CORPUSCULAR VOLUME (BEAKER) (test mcbm=484) 98.7 fL 79.0-92.2 MEAN CORPUSCULAR HEMOGLOBIN (BEAKER) (test 34.4 pg 25.7-32.2 tuwa=459) MEAN CORPUSCULAR HEMOGLOBIN CONC (BEAKER) (test 34.8 GM/DL 32.3-36.5 zfeb=943) RED CELL DISTRIBUTION WIDTH (BEAKER) (test 11.5 % 11.6-14.4 rtfx=818) PLATELET COUNT (BEAKER) (test zsmv=696) 152 K/CU MM 150-450 MEAN PLATELET VOLUME (BEAKER) (test fjoh=810) 10.2 fL 9.4-12.4 NUCLEATED RED BLOOD CELLS (BEAKER) (test 0 /100 WBC 0-0 yfbe=240) NEUTROPHILS RELATIVE PERCENT (BEAKER) (test 71 % taaw=519) LYMPHOCYTES RELATIVE PERCENT (BEAKER) (test 14 % xbme=472) MONOCYTES RELATIVE PERCENT (BEAKER) (test 11 % mfgx=897) EOSINOPHILS RELATIVE PERCENT (BEAKER) (test 2 % dvpk=368) BASOPHILS RELATIVE PERCENT (BEAKER) (test 1 % qtsk=927) NEUTROPHILS ABSOLUTE COUNT (BEAKER) (test 3.66 K/ L 1.78-5.38 tjtk=366) LYMPHOCYTES ABSOLUTE COUNT (BEAKER) (test 0.71 K/ L 1.32-3.57 egqy=853) MONOCYTES ABSOLUTE COUNT (BEAKER) (test 0.58 K/ L 0.30-0.82 pdun=247) EOSINOPHILS ABSOLUTE COUNT (BEAKER) (test 0.10 K/ L 0.04-0.54 zvib=590) BASOPHILS ABSOLUTE COUNT (BEAKER) (test 0.04 K/ L 0.01-0.08 pihl=474) IMMATURE GRANULOCYTES-RELATIVE PERCENT (BEAKER) 1 % 0-1 (test iwuv=8591) POCT-GLUCOSE [id number] 11:54:00 Test Item Value Reference Range Comments POC-GLUCOSE METER (BEAKER) 83 mg/dL 70-110 TESTED AT [facility] [address] [facility] (test cxlp=4315) [facility] [address] [id number] 05:54:00 Test Item Value Reference Range Comments PHOSPHORUS (BEAKER) (test ftfs=484) 2.3 mg/dL 2.3-4.7 [id number] 05:54:00 Test Item Value Reference Range Comments MAGNESIUM (BEAKER) (test wanb=163) 2.0 mg/dL 1.6-2.6 COMPREHENSIVE METABOLIC [id number] 05:54:00 Test Item Value Reference Range Comments TOTAL PROTEIN (BEAKER) 6.0 gm/dL 6.0-8.3 (test husc=689) ALBUMIN (BEAKER) (test 3.2 g/dL 3.5-5.0 qkzp=8475) ALKALINE PHOSPHATASE 134 U/L 40-150 (BEAKER) (test iwtd=763) BILIRUBIN TOTAL (BEAKER) 1.1 mg/dL 0.2-1.2 (test ahqr=026) SODIUM (BEAKER) (test 134 meq/L 136-145 qxys=229) POTASSIUM (BEAKER) (test 3.6 meq/L 3.5-5.1 xqjk=874) CHLORIDE (BEAKER) (test 100 meq/L 98-107 iclk=750) CO2 (BEAKER) (test 26 meq/L 22-29 wouv=002) BLOOD UREA NITROGEN 4 mg/dL 7-21 (BEAKER) (test ghut=231) CREATININE (BEAKER) (test 0.54 mg/dL 0.57-1.25 gfsy=549) GLUCOSE RANDOM (BEAKER) 141 mg/dL 70-105 (test jkcj=507) CALCIUM (BEAKER) (test 8.8 mg/dL 8.4-10.2 ahus=238) AST (SGOT) (BEAKER) (test 183 U/L 5-34 qcix=334) ALT (SGPT) (BEAKER) (test 149 U/L 6-55 patc=395) EGFR (BEAKER) (test 176 mL/min/1.73 sq ESTIMATED GFR IS NOT qohc=1989) m ACCURATE CREATININE CLEARANCE IN PREDICTING GLOMERULAR FILTRATION RATE. ESTIMATED GFR IS NOT APPLICABLE FOR DIALYSIS PATIENTS. LACTIC ACID, [id number] 05:35:00 Test Item Value Reference Range Comments LACTATE BLOOD VENOUS (2) (BEAKER) (test 1.0 mmol/L 0.5-2.2 fhxs=2892) CBC W/PLT COUNT & AUTO [id number] 05:23:00 Test Item Value Reference Range Comments WHITE BLOOD CELL COUNT (BEAKER) (test ihki=849) 5.0 K/ L 3.5-10.5 RED BLOOD CELL COUNT (BEAKER) (test kgrw=557) 3.88 M/ L 4.63-6.08 HEMOGLOBIN (BEAKER) (test wckd=215) 13.0 GM/DL 13.7-17.5 HEMATOCRIT (BEAKER) (test eytu=114) 38.5 % 40.1-51.0 MEAN CORPUSCULAR VOLUME (BEAKER) (test xycs=061) 99.2 fL 79.0-92.2 MEAN CORPUSCULAR HEMOGLOBIN (BEAKER) (test 33.5 pg 25.7-32.2 qgll=477) MEAN CORPUSCULAR HEMOGLOBIN CONC (BEAKER) (test 33.8 GM/DL 32.3-36.5 webh=506) RED CELL DISTRIBUTION WIDTH (BEAKER) (test 11.6 % 11.6-14.4 nmal=627) PLATELET COUNT (BEAKER) (test gvzc=617) 113 K/CU MM 150-450 MEAN PLATELET VOLUME (BEAKER) (test mqfa=332) 10.7 fL 9.4-12.4 NUCLEATED RED BLOOD CELLS (BEAKER) (test 0 /100 WBC 0-0 wgwa=126) NEUTROPHILS RELATIVE PERCENT (BEAKER) (test 72 % lvqt=699) LYMPHOCYTES RELATIVE PERCENT (BEAKER) (test 15 % indf=873) MONOCYTES RELATIVE PERCENT (BEAKER) (test 10 % hmam=598) EOSINOPHILS RELATIVE PERCENT (BEAKER) (test 2 % tqun=439) BASOPHILS RELATIVE PERCENT (BEAKER) (test 1 % pbti=680) NEUTROPHILS ABSOLUTE COUNT (BEAKER) (test 3.56 K/ L 1.78-5.38 lerl=510) LYMPHOCYTES ABSOLUTE COUNT (BEAKER) (test 0.76 K/ L 1.32-3.57 xkmk=699) MONOCYTES ABSOLUTE COUNT (BEAKER) (test 0.49 K/ L 0.30-0.82 efuq=675) EOSINOPHILS ABSOLUTE COUNT (BEAKER) (test 0.10 K/ L 0.04-0.54 wyak=555) BASOPHILS ABSOLUTE COUNT (BEAKER) (test 0.04 K/ L 0.01-0.08 pmlx=844) IMMATURE GRANULOCYTES-RELATIVE PERCENT (BEAKER) 1 % 0-1 (test oxwx=6694) POCT-GLUCOSE [id number] 18:44:00 Test Item Value Reference Range Comments POC-GLUCOSE METER (BEAKER) 100 mg/dL 70-110 TESTED AT [facility] [address] [facility] (test hmyf=3723) [facility] [address] [id number] 17:58:00 Test Item Value Reference Range Comments PHOSPHORUS (BEAKER) (test ccaf=599) 2.3 mg/dL 2.3-4.7 [id number] 17:58:00 Test Item Value Reference Range Comments MAGNESIUM (BEAKER) (test pfsu=953) 1.8 mg/dL 1.6-2.6 BASIC METABOLIC [id number] 17:58:00 Test Item Value Reference Range Comments SODIUM (BEAKER) (test 137 meq/L 136-145 kedt=780) POTASSIUM (BEAKER) (test 3.6 meq/L 3.5-5.1 oore=569) CHLORIDE (BEAKER) (test 102 meq/L 98-107 dnmz=951) CO2 (BEAKER) (test 26 meq/L 22-29 kmfn=707) BLOOD UREA NITROGEN 4 mg/dL 7-21 (BEAKER) (test kgmz=440) CREATININE (BEAKER) (test 0.54 mg/dL 0.57-1.25 tabk=388) GLUCOSE RANDOM (BEAKER) 123 mg/dL 70-105 (test tudq=956) CALCIUM (BEAKER) (test 8.7 mg/dL 8.4-10.2 kysr=731) EGFR (BEAKER) (test 177 mL/min/1.73 sq m ESTIMATED GFR IS NOT gjlj=9409) ACCURATE CREATININE CLEARANCE IN PREDICTING GLOMERULAR FILTRATION RATE. ESTIMATED GFR IS NOT APPLICABLE FOR DIALYSIS PATIENTS. [id number] 16:55:00 Test Item Value Reference Range Comments MAGNESIUM (BEAKER) (test 1.6 mg/dL 1.6-2.6 Specimen slightly hemolyzed tsgw=899) [id number] 16:55:00 Test Item Value Reference Range Comments PHOSPHORUS (BEAKER) (test 2.3 mg/dL 2.3-4.7 Specimen slightly hemolyzed hefk=660) BASIC METABOLIC [id number] 16:55:00 Test Item Value Reference Range Comments SODIUM (BEAKER) (test 138 meq/L 136-145 crpw=812) POTASSIUM (BEAKER) (test 3.7 meq/L 3.5-5.1 Specimen slightly snue=494) hemolyzed CHLORIDE (BEAKER) (test 105 meq/L 98-107 mhqd=523) CO2 (BEAKER) (test 23 meq/L 22-29 twgx=718) BLOOD UREA NITROGEN 4 mg/dL 7-21 (BEAKER) (test sczz=613) CREATININE (BEAKER) (test 0.51 mg/dL 0.57-1.25 Specimen slightly zqpm=929) hemolyzed GLUCOSE RANDOM (BEAKER) 99 mg/dL 70-105 (test qyfv=049) CALCIUM (BEAKER) (test 8.0 mg/dL 8.4-10.2 xwpp=983) EGFR (BEAKER) (test 190 mL/min/1.73 sq m ESTIMATED GFR IS NOT sbtr=5105) ACCURATE CREATININE CLEARANCE IN PREDICTING GLOMERULAR FILTRATION RATE. ESTIMATED GFR IS NOT APPLICABLE FOR DIALYSIS PATIENTS. POCT-GLUCOSE [id number] 12:41:00 Test Item Value Reference Range Comments POC-GLUCOSE METER (BEAKER) 100 mg/dL 70-110 TESTED AT [facility] [address] [facility] (test oord=1091) [facility] [address] POCT-GLUCOSE [id number] 08:07:00 Test Item Value Reference Range Comments POC-GLUCOSE METER (BEAKER) 99 mg/dL 70-110 TESTED AT [facility] [address] [facility] (test xumd=1513) [facility] [address] U/S, ABDOMINAL, [id number] 08:05:00Abdomen limited area? Add comment if clarification [...] Verified Date /Time: 09/30/2018 08:05:48 Reading Location: [facility] [id number] Ultrasound Reading Room [id number] 07:23:00 Test Item Value Reference Range Comments PHOSPHORUS (BEAKER) (test atwf=347) 1.2 mg/dL 2.3-4.7 [id number] 07:11:00 Test Item Value Reference Range Comments MAGNESIUM (BEAKER) (test yvir=866) 2.3 mg/dL 1.6-2.6 COMPREHENSIVE METABOLIC [id number] 07:11:00 Test Item Value Reference Range Comments TOTAL PROTEIN (BEAKER) 5.8 gm/dL 6.0-8.3 (test vprm=283) ALBUMIN (BEAKER) (test 3.1 g/dL 3.5-5.0 bmty=9080) ALKALINE PHOSPHATASE 141 U/L 40-150 (BEAKER) (test qxzg=658) BILIRUBIN TOTAL (BEAKER) 1.1 mg/dL 0.2-1.2 (test qupq=686) SODIUM (BEAKER) (test 135 meq/L 136-145 hrsg=040) POTASSIUM (BEAKER) (test 3.7 meq/L 3.5-5.1 uobe=352) CHLORIDE (BEAKER) (test 104 meq/L 98-107 zxio=309) CO2 (BEAKER) (test 24 meq/L 22-29 ldxn=706) BLOOD UREA NITROGEN 5 mg/dL 7-21 (BEAKER) (test jmnm=673) CREATININE (BEAKER) (test 0.39 mg/dL 0.57-1.25 xbyw=569) GLUCOSE RANDOM (BEAKER) 114 mg/dL 70-105 (test yzhe=813) CALCIUM (BEAKER) (test 8.3 mg/dL 8.4-10.2 ddpt=096) AST (SGOT) (BEAKER) (test 354 U/L 5-34 mmtd=778) ALT (SGPT) (BEAKER) (test 188 U/L 6-55 ajqr=776) EGFR (BEAKER) (test 258 mL/min/1.73 sq ESTIMATED GFR IS NOT xclg=3080) m ACCURATE CREATININE CLEARANCE IN PREDICTING GLOMERULAR FILTRATION RATE. ESTIMATED GFR IS NOT APPLICABLE FOR DIALYSIS PATIENTS. LACTIC ACID, [id number] 04:07:00 Test Item Value Reference Range Comments LACTATE BLOOD VENOUS (2) 0.8 mmol/L 0.5-2.2 Specimen slightly hemolyzed (BEAKER) (test conz=9770) CBC W/PLT COUNT & AUTO [id number] 04:00:00 Test Item Value Reference Range Comments WHITE BLOOD CELL COUNT (BEAKER) (test sfhp=636) 6.1 K/ L 3.5-10.5 RED BLOOD CELL COUNT (BEAKER) (test nikl=823) 3.87 M/ L 4.63-6.08 HEMOGLOBIN (BEAKER) (test gvif=463) 13.3 GM/DL 13.7-17.5 HEMATOCRIT (BEAKER) (test mehr=458) 39.1 % 40.1-51.0 MEAN CORPUSCULAR VOLUME (BEAKER) (test poif=382) 101.0 fL 79.0-92.2 MEAN CORPUSCULAR HEMOGLOBIN (BEAKER) (test 34.4 pg 25.7-32.2 fxjc=479) MEAN CORPUSCULAR HEMOGLOBIN CONC (BEAKER) (test 34.0 GM/DL 32.3-36.5 toeq=223) RED CELL DISTRIBUTION WIDTH (BEAKER) (test 12.1 % 11.6-14.4 tdcb=586) PLATELET COUNT (BEAKER) (test kgpg=831) 105 K/CU MM 150-450 MEAN PLATELET VOLUME (BEAKER) (test qxmh=544) 10.4 fL 9.4-12.4 NUCLEATED RED BLOOD CELLS (BEAKER) (test 0 /100 WBC 0-0 kzey=848) NEUTROPHILS RELATIVE PERCENT (BEAKER) (test 74 % exbq=012) LYMPHOCYTES RELATIVE PERCENT (BEAKER) (test 14 % mqds=956) MONOCYTES RELATIVE PERCENT (BEAKER) (test 10 % wive=408) EOSINOPHILS RELATIVE PERCENT (BEAKER) (test 1 % gvnj=815) BASOPHILS RELATIVE PERCENT (BEAKER) (test 1 % kydz=865) NEUTROPHILS ABSOLUTE COUNT (BEAKER) (test 4.52 K/ L 1.78-5.38 jlzi=205) LYMPHOCYTES ABSOLUTE COUNT (BEAKER) (test 0.84 K/ L 1.32-3.57 mhna=287) MONOCYTES ABSOLUTE COUNT (BEAKER) (test 0.62 K/ L 0.30-0.82 gyei=322) EOSINOPHILS ABSOLUTE COUNT (BEAKER) (test 0.06 K/ L 0.04-0.54 gyqi=930) BASOPHILS ABSOLUTE COUNT (BEAKER) (test 0.03 K/ L 0.01-0.08 mepv=828) IMMATURE GRANULOCYTES-RELATIVE PERCENT (BEAKER) 0 % 0-1 (test uwrk=9091) [id number] 01:32:00 Test Item Value Reference Range Comments PROCALCITONIN (BEAKER) (test cggv=1375) 0.48 ng/mL <0.05 SEPSIS RISK (ng/mL)Low: 0.05-0.50Intermediate: 0.51-2.00High: & gt;=2.01BASIC METABOLIC [id number] 00:58:00 Test Item Value Reference Range Comments SODIUM (BEAKER) (test 135 meq/L 136-145 wmal=984) POTASSIUM (BEAKER) (test 3.4 meq/L 3.5-5.1 npyd=862) CHLORIDE (BEAKER) (test 104 meq/L 98-107 hrvd=657) CO2 (BEAKER) (test 22 meq/L 22-29 yaoa=406) BLOOD UREA NITROGEN 7 mg/dL 7-21 (BEAKER) (test ujlo=057) CREATININE (BEAKER) (test 0.55 mg/dL 0.57-1.25 cmxq=268) GLUCOSE RANDOM (BEAKER) 113 mg/dL 70-105 (test jcte=937) CALCIUM (BEAKER) (test 8.4 mg/dL 8.4-10.2 hzdk=487) EGFR (BEAKER) (test 174 mL/min/1.73 sq m ESTIMATED GFR IS NOT eimg=5482) ACCURATE CREATININE CLEARANCE IN PREDICTING GLOMERULAR FILTRATION RATE. ESTIMATED GFR IS NOT APPLICABLE FOR DIALYSIS PATIENTS. [id number] 00:57:00 Test Item Value Reference Range Comments MAGNESIUM (BEAKER) (test sksz=152) 1.5 mg/dL 1.6-2.6 LACTIC ACID, [id number] 00:37:00 Test Item Value Reference Range Comments LACTATE BLOOD VENOUS (2) 0.7 mmol/L 0.5-2.2 Specimen moderately hemolyzed (BEAKER) (test qivz=5086) POCT-GLUCOSE [id number] 00:25:00 Test Item Value Reference Range Comments POC-GLUCOSE METER (BEAKER) 101 mg/dL 70-110 TESTED AT [address] (test fvnl=4520) [place] [id number] POCT-GLUCOSE [id number] 18:32:00 Test Item Value Reference Range Comments POC-GLUCOSE METER (BEAKER) 76 mg/dL 70-110 TESTED AT [address] (test abdv=9391) [place] [address] [id number] 15:15:00 Test Item Value Reference Range Comments POTASSIUM (BEAKER) (test sirj=513) 3.4 meq/L 3.5-5.1 [id number] 15:15:00 Test Item Value Reference Range Comments MAGNESIUM (BEAKER) (test tllh=822) 2.1 mg/dL 1.6-2.6 CT, [id number] 12:38:00FINAL REPORT CT abdomen with and without [...] Verified Date/Time: 09/29/2018 12:38:07 Reading Location : [address] Consult Reading Room POCT-GLUCOSE [id number] 11:49:00 Test Item Value Reference Range Comments POC-GLUCOSE METER (BEAKER) 83 mg/dL 70-110 TESTED AT [facility] [address] [place] [address] (test kncj=6409) [facility] [address] [id number] 10:49:00 Test Item Value Reference Range Comments TRIGLYCERIDES (BEAKER) (test 71 mg/dL Specimen slightly hemolyzed lygs=949) TRIGLYCERIDE REFERENCE RANGELow Risk <150Borderline Risk 150-199High Risk 200-499Very High Risk>=[id number] 05:09:00 Test Item Value Reference Range Comments LIPASE (BEAKER) (test rjxd=206) > U/L 8-78 [id number] 04:35:00 Test Item Value Reference Range Comments MAGNESIUM (BEAKER) (test 1.6 mg/dL 1.6-2.6 Specimen slightly hemolyzed cofe=712) [id number] 04:35:00 Test Item Value Reference Range Comments PHOSPHORUS (BEAKER) (test 3.2 mg/dL 2.3-4.7 Specimen slightly hemolyzed arsw=712) COMPREHENSIVE METABOLIC [id number] 04:35:00 Test Item Value Reference Range Comments TOTAL PROTEIN (BEAKER) 6.8 gm/dL 6.0-8.3 Specimen slightly (test uhov=462) hemolyzed ALBUMIN (BEAKER) (test 3.8 g/dL 3.5-5.0 Specimen slightly feue=5672) hemolyzed ALKALINE PHOSPHATASE 130 U/L 40-150 (BEAKER) (test qohe=561) BILIRUBIN TOTAL (BEAKER) 1.7 mg/dL 0.2-1.2 Specimen slightly (test cjvz=729) hemolyzed SODIUM (BEAKER) (test 138 meq/L 136-145 egjd=034) POTASSIUM (BEAKER) (test 3.7 meq/L 3.5-5.1 Specimen slightly aotz=246) hemolyzed CHLORIDE (BEAKER) (test 103 meq/L 98-107 wfug=701) CO2 (BEAKER) (test 17 meq/L 22-29 qvat=134) BLOOD UREA NITROGEN 9 mg/dL 7-21 (BEAKER) (test tujx=475) CREATININE (BEAKER) (test 0.65 mg/dL 0.57-1.25 Specimen slightly dmkh=111) hemolyzed GLUCOSE RANDOM (BEAKER) 103 mg/dL 70-105 (test itpk=613) CALCIUM (BEAKER) (test 8.7 mg/dL 8.4-10.2 myty=506) AST (SGOT) (BEAKER) (test 151 U/L 5-34 Specimen slightly auhq=586) hemolyzed ALT (SGPT) (BEAKER) (test 143 U/L 6-55 Specimen slightly jipv=488) hemolyzed EGFR (BEAKER) (test 143 mL/min/1.73 sq ESTIMATED GFR IS NOT zfqu=4464) m ACCURATE CREATININE CLEARANCE IN PREDICTING GLOMERULAR FILTRATION RATE. ESTIMATED GFR IS NOT APPLICABLE FOR DIALYSIS PATIENTS. PROTHROMBIN [id number] 04:34:00 Test Item Value Reference Range Comments PROTIME (BEAKER) (test rbam=565) 14.6 seconds 11.7-14.7 INR (BEAKER) (test lduu=796) 1.1 <=5.9 RECOMMENDED COUMADIN/WARFARIN INR THERAPY RANGESSTANDARD DOSE: 2.0 - 3.0 Includes: PROPHYLAXIS forvenous thrombosis, systemic embolization; TREATMENT for venous thrombosis and/or pulmonary embolus.HIGH RISK: Target INR is 2.5-3.5 for patients with mechanical heart valves.CBC W/PLT COUNT & AUTO [id number] 04:09:00 Test Item Value Reference Range Comments WHITE BLOOD CELL COUNT (BEAKER) (test iawf=120) 6.2 K/ L 3.5-10.5 RED BLOOD CELL COUNT (BEAKER) (test bfpk=671) 4.33 M/ L 4.63-6.08 HEMOGLOBIN (BEAKER) (test lzfn=396) 15.0 GM/DL 13.7-17.5 HEMATOCRIT (BEAKER) (test qcpi=572) 43.2 % 40.1-51.0 MEAN CORPUSCULAR VOLUME (BEAKER) (test togq=683) 99.8 fL 79.0-92.2 MEAN CORPUSCULAR HEMOGLOBIN (BEAKER) (test 34.6 pg 25.7-32.2 gjuq=947) MEAN CORPUSCULAR HEMOGLOBIN CONC (BEAKER) (test 34.7 GM/DL 32.3-36.5 egqp=322) RED CELL DISTRIBUTION WIDTH (BEAKER) (test 12.4 % 11.6-14.4 edxa=495) PLATELET COUNT (BEAKER) (test jgwg=097) 160 K/CU MM 150-450 MEAN PLATELET VOLUME (BEAKER) (test bmoy=859) 10.4 fL 9.4-12.4 NUCLEATED RED BLOOD CELLS (BEAKER) (test 0 /100 WBC 0-0 vrjb=450) NEUTROPHILS RELATIVE PERCENT (BEAKER) (test 81 % ibtp=748) LYMPHOCYTES RELATIVE PERCENT (BEAKER) (test 7 % qdau=683) MONOCYTES RELATIVE PERCENT (BEAKER) (test 10 % fehq=423) EOSINOPHILS RELATIVE PERCENT (BEAKER) (test 0 % ydme=066) BASOPHILS RELATIVE PERCENT (BEAKER) (test 1 % nfiq=245) NEUTROPHILS ABSOLUTE COUNT (BEAKER) (test 5.01 K/ L 1.78-5.38 rbta=235) LYMPHOCYTES ABSOLUTE COUNT (BEAKER) (test 0.44 K/ L 1.32-3.57 qepy=391) MONOCYTES ABSOLUTE COUNT (BEAKER) (test 0.62 K/ L 0.30-0.82 fjec=339) EOSINOPHILS ABSOLUTE COUNT (BEAKER) (test 0.01 K/ L 0.04-0.54 dtzb=876) BASOPHILS ABSOLUTE COUNT (BEAKER) (test 0.03 K/ L 0.01-0.08 tsuh=979) IMMATURE GRANULOCYTES-RELATIVE PERCENT (BEAKER) 1 % 0-1 (test whkq=7179)
[2019-07-22] MEDS ORDERED: MORPHINE 4 MG/ML SYR ONE ×2 (16:00→17:05)
[2019-07-22] MEDS ORDERED: ONDANSETRON 4 MG/2 ML VIAL ONE (16:00)
[2019-07-22] MEDS ORDERED: NA CHLORIDE 0.9% 1,000 ML ONE (16:00)
[2019-07-22 16:36] LABS: Absolute Lymphocytes (CBC) 1.1 K/uL (0.7-4.9); Basophils % 0.4 % (0-1.3); Hematocrit 40.9 % (39.6-49.0); Lymphocytes % 20.5 % (15.3-44.8); RBC Red Blood Cell Count 4.69 M/uL (4.33-5.43)
[2019-07-22 16:37] LABS: Protime INR 1.13
[2019-07-22 16:51] LABS: ALT/SGPT 37 U/L (12-78); AST/SGOT 21 U/L (15-37); Albumin 4.5 g/dL (3.4-5.0); Alkaline Phosphatase 97 U/L (45-117); BUN Blood Urea Nitrogen 8 mg/dL (7-18); Bicarbonate 25 mmol/L (21-32); Bilirubin Direct < 0.1 mg/dL (0-0.2); Bilirubin Total 0.3 mg/dL (0.2-1.0); Glucose Level 105 mg/dL (74-106); Lipase 55 U/L (73-393); Potassium 3.8 mmol/L (3.5-5.1); Protein, Total 8.1 g/dL (6.4-8.2); Sodium Level 141 mmol/L (136-145)
[2019-07-22] MEDS ORDERED: PANTOPRAZOLE 40 MG INJ ONE (17:39)
--- NOTE | 2019-07-22 17:42 | RAD REPORT ---
EXAM DESCRIPTION: CTAbdomen Pelvis W Contrast - 07/22/2019 5:23 pm CLINICAL HISTORY: Abdominal pain. abdominal pain, rectal bleeding COMPARISON: Abdomen Pelvis W Contrast dated 07/15/2019; Abdomen Pelvis W Contrast dated 06/30/20 19; Abdomen Pelvis W Contrast dated 06/17/2019; Abdomen Pelvis W Contrast dated 06/09/2019 TECHNIQUE: Biphasic CT imaging of the abdomen and pelvis was performed with 100 ml non-ionic IV cont rast. All CT scans are performed using dose optimization technique as appropriate and may include automated exposure control or mA/KV adjustment according to patient size. 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 Mild fatty liver. No aggressive liver lesion or biliary dilatation. The spleen is mildly enlarged in size. The pancreas adrenal glands are within limits. Punctate calculi are present in both kidneys wit hout hydronephrosis. No bowel obstruction, free air, free fluid or abscess. The appendix is normal. No evidence of signi ficant lymphadenopathy. No suspicious bony findings. IMPRESSION: No acute intra-abdominal or pelvic finding. Punctate bilateral nephrolithiasis.
[2019-07-22] MEDS ORDERED: HYDROMORPHONE HCL 0.5 MG/0.5 ML INJ ONE (17:55)
[2019-07-22] MEDS ORDERED: MAGNE/ALUM HYDROXD 30 ML UCUP ONE (18:05)
[2019-07-22] MEDS ORDERED: LIDOCAINE VISCOUS 2% SOLN 15 ML UDC ONE (18:05)
--- NOTE | 2019-07-22 18:09 | ER ---
Nurse's Notes [facility] Name: Jonathan Gutierrez Age: 33 yrs Sex: Male : 1985 Arrival Date: 07/22/2019 Time: 15:25 Bed 13 Private MD: Diagnosis: Alcohol-induced chronic pancreatitis;Gastrointestinal hemorrhage, unspecified Presentation: 07/22 15:27 Presenting complaint: Patient states: "I was just here last week for the same thing but aa5 I am still having the abdominal pain and the blood in my stool and I just got the money to go see Dr. Walsh". Pt reports nausea, denies vomiting. Transition of care: patient was not received from another setting of care. Onset of symptoms was July 2019. Risk Assessment: Do you want to hurt yourself or someone else? Patient reports no desire to harm self or others. Initial Sepsis Screen: Does the patient meet any 2 criteria? HR > 90 bpm. Does the patient have a suspected source of infection? No. Patient's initial sepsis screen is negative. Care prior to arrival: None. 15:27 Acuity: NEO 3 aa5 15:27 Method Of Arrival: Ambulatory aa5 Historical: - Allergies: 15:28 No Known Allergies; aa5 - Home Meds: 15:32 Creon Oral [Active]; lisinopril Oral [Active]; Folic Acid Oral [Active]; Pepcid Oral tw2 [Active]; Thiamine Oral [Active]; - PMHx: 15:28 ADD/ADHD; etoh abuse; Hypertension; liver "spot"; Pancreatitis; aa5 - PSHx: 15:28 Tonsillectomy; aa5 - Immunization history:: Flu vaccine is up to date. - Social history:: Smoking status: Patient uses tobacco products, smokes one pack cigarettes per day. - Ebola Screening: : No symptoms or risks identified at this time. Screenin:30 Abuse screen: Denies threats or abuse. Nutritional screening: No deficits noted. tw2 Tuberculosis screening: No symptoms or risk factors identified. Fall Risk None identified. Assessment: 15:36 General: Appears in no apparent distress. Behavior is calm, cooperative, appropriate tw2 for age. Pain: Complains of pain in abdomen. Neuro: Level of Consciousness is awake, alert, obeys commands, Oriented to person, place, time, situation. Cardiovascular: Heart tones S1 S2 Patient's skin is warm and dry. Respiratory: Airway is patent Respiratory effort is even, unlabored, Respiratory pattern is regular, symmetrical, Breath sounds are clear bilaterally. GI: Bowel sounds present X 4 quads. Abd is soft X 4 quads Reports lower abdominal pain, upper abdominal pain, bloody stool. : No signs and/or symptoms were reported regarding the genitourinary system. EENT: No signs and/or symptoms were reported regarding the EENT system. Derm: No signs and/or symptoms reported regarding the dermatologic system. Musculoskeletal: Range of motion: intact in all extremities. 16:54 Reassessment: Patient appears in no apparent distress at this time. No changes from tw2 previously documented assessment. Patient and/or family updated on plan of care and expected duration. Pain level reassessed. Patient is alert, oriented x 3, equal unlabored respirations, skin warm/dry/pink. 17:57 Reassessment: Patient appears in no apparent distress at this time. No changes from tw2 previously documented assessment. Patient and/or family updated on plan of care and expected duration. Pain level reassessed. Patient is alert, oriented x 3, equal unlabored respirations, skin warm/dry/pink. 18:46 Reassessment: Patient appears in no apparent distress at this time. No changes from tw2 previously documented assessment. Patient and/or family updated on plan of care and expected duration. Pain level reassessed. Patient is alert, oriented x 3, equal unlabored respirations, skin warm/dry/pink. Vital Signs: 15:28 BP 172 / 83; Pulse 106; Resp 16 S; Temp 98.5(TE); Pulse Ox 97% on R/A; Weight 77.11 kg aa5 (R); Height 5 ft. 11 in. (180.34 cm) (R); Pain 8/10; 16:00 BP 164 / 100; Pulse 113; Resp 17; Pulse Ox 100% on R/A; tw2 16:54 BP 159 / 86; Pulse 114; Resp 17; Pulse Ox 100% on R/A; tw2 17:56 BP 161 / 74; Pulse 97; Resp 17; Pulse Ox 100% on R/A; tw2 18:45 BP 146 / 78; Pulse 88; Resp 17; Pulse Ox 100% on R/A; tw2 15:28 Body Mass Index 23.71 (77.11 kg, 180.34 cm) aa5 ED Course: 15:25 Patient arrived in ED. mr 15:27 Arm band placed on. aa5 15:28 Triage completed. aa5 15:29 Ramona Vanessa, RN is Primary Nurse. tw2 15:30 Bed in low position. Call light in reach. tw2 15:37 Norberto Cameron PA is PHCP. [facility] [place] [facility] 15:37 Justin Rowe MD is Attending Physician. [facility] [place] [facility] 16:10 Missed attempt(s): 20 gauge in right antecubital area. Bleeding controlled, band aid tw2 applied, catheter tip intact. Missed attempt(s): 20 gauge in right antecubital area. Bleeding controlled, band aid applied, catheter tip intact. Inserted saline lock: 20 gauge in left antecubital area, using aseptic technique. Blood collected. 17:24 CT Abd/Pelvis - IV Contrast Only In Process Unspecified. EDMS 18:08 Awaiting: completion of IV fluids PRIOR to discharge. tw2 18:46 No provider procedures requiring assistance completed. IV discontinued, intact, tw2 bleeding controlled, No redness/swelling at site. Pressure dressing applied. Administered Medications: 16:10 Drug: NS 0.9% 1000 ml Route: IV; Rate: 1 bolus; Site: left antecubital; tw2 18:45 Follow up: Response: No adverse reaction; IV Status: Completed infusion; IV Intake: tw2 1000ml 16:10 Drug: Zofran 4 mg Route: IVP; Site: left antecubital; tw2 17:00 Follow up: Response: No adverse reaction tw2 16:14 Drug: morphine 4 mg Route: IVP; Site: left antecubital; tw2 17:00 Follow up: Response: No adverse reaction; Pain is unchanged, physician notified; RASS: tw2 Alert and Calm (0) 17:04 Drug: morphine 4 mg Route: IVP; Site: left antecubital; tw2 17:56 Follow up: Response: No adverse reaction; Pain is unchanged, physician notified; RASS: tw2 Alert and Calm (0) 17:50 Drug: ProTONIX 40 mg Route: IVP; Site: left antecubital; tw2 18:01 Follow up: Response: No adverse reaction tw2 17:53 Drug: Dilaudid 0.5 mg Route: IVP; Site: left antecubital; tw2 18:44 Follow up: Response: No adverse reaction; Pain is decreased; RASS: Alert and Calm (0) tw2 18:06 Drug: GI Cocktail without - (Maalox Suspension 30 ml, Lidocaine Liquid 2 % 15 tw2 ml) Route: PO; 18:44 Follow up: Response: No adverse reaction tw2 Intake: 18:45 IV: 1000ml; Total: 1000ml. tw2 Outcome: 18:08 Discharge ordered by . marguerite 18:46 Patient left the ED. tw2 18:46 Discharged to home ambulatory. tw2 18:46 Condition: stable 18:46 Discharge instructions given to patient, Instructed on discharge instructions, follow up and referral plans. no drinking with medication, no driving heavy equipment, medication usage, Demonstrated understanding of instructions, follow-up care, medications, Prescriptions given X 2. Signatures: Dispatcher [employer] EDMS Norberto Cameron PA PA jmm Rivera, Mary mr MobleyGina chan, RN RN aa5 Ramona Vanessa RN RN tw2
--- NOTE | 2019-07-22 18:10 | EDPHYS ---
Physician Documentation [facility] Name: Jonathan Gutierrez Age: 33 yrs Sex: Male : 1985 Arrival Date: 07/22/2019 Time: 15:25 Bed 13 Private MD: ED Physician Justin Rowe HPI: 07/22 15:42 This 33 yrs old Male presents to ER via Ambulatory with complaints of jmm Abdominal Pain. 15:42 The patient presents with abdominal pain in the epigastric area. Onset: The jmm symptoms/episode began/occurred gradually, 2 week(s) ago. The symptoms radiate to Associated signs and symptoms: Pertinent positives: nausea. The symptoms are described as achy, sharp, stabbing. Modifying factors: The symptoms are alleviated by nothing, the symptoms are aggravated by food. The patient has experienced similar episodes in the past, several times. Patient also complains of bloody bowel movements which has been chronic. . Historical: - Allergies: 15:28 No Known Allergies; aa5 - Home Meds: 15:32 Creon Oral [Active]; lisinopril Oral [Active]; Folic Acid Oral [Active]; Pepcid Oral tw2 [Active]; Thiamine Oral [Active]; - PMHx: 15:28 ADD/ADHD; etoh abuse; Hypertension; liver "spot"; Pancreatitis; aa5 - PSHx: 15:28 Tonsillectomy; aa5 - Immunization history:: Flu vaccine is up to date. - Social history:: Smoking status: Patient uses tobacco products, smokes one pack cigarettes per day. - Ebola Screening: : No symptoms or risks identified at this time. ROS: 15:42 Constitutional: Negative for fever, chills, and weight loss, Cardiovascular: Negative jmm for chest pain, palpitations, and edema, Respiratory: Negative for shortness of breath, cough, wheezing, and pleuritic chest pain. 15:42 Abdomen/GI: Positive for abdominal pain, nausea, rectal bleeding. 15:42 All other systems are negative. Exam: 15:42 Constitutional: This is a well developed, well nourished patient who is awake, alert, jmm and in no acute distress. Head/Face: atraumatic. Eyes: EOMI, no conjunctival erythema appreciated ENT: Moist Mucus Membranes Neck: Trachea midline, Supple Chest/axilla: Normal chest wall appearance and motion. Cardiovascular: Regular rate and rhythm. No edema appreciated Respiratory: Normal respirations, no respiratory distress appreciated 15:42 Abdomen/GI: Inspection: abdomen appears normal, Bowel sounds: normal, Palpation: soft, mild abdominal tenderness, in the epigastric area and left upper quadrant. 15:42 Back: ROM is normal. 15:42 Musculoskeletal/extremity: ROM: intact in all extremities. 15:42 Skin: Appearance: Color: normal in color. 15:42 Neuro: Orientation: is normal, Mentation: is normal, Memory: is normal. 15:42 Psych: Behavior/mood is pleasant, cooperative. Vital Signs: 15:28 BP 172 / 83; Pulse 106; Resp 16 S; Temp 98.5(TE); Pulse Ox 97% on R/A; Weight 77.11 kg aa5 (R); Height 5 ft. 11 in. (180.34 cm) (R); Pain 8/10; 16:00 BP 164 / 100; Pulse 113; Resp 17; Pulse Ox 100% on R/A; tw2 16:54 BP 159 / 86; Pulse 114; Resp 17; Pulse Ox 100% on R/A; tw2 17:56 BP 161 / 74; Pulse 97; Resp 17; Pulse Ox 100% on R/A; tw2 18:45 BP 146 / 78; Pulse 88; Resp 17; Pulse Ox 100% on R/A; tw2 15:28 Body Mass Index 23.71 (77.11 kg, 180.34 cm) aa5 MDM: 15:42 Patient medically screened. jamie 18:04 Data reviewed: vital signs, nurses notes. Counseling: I had a detailed discussion with marguerite the patient and/or guardian regarding: the historical points, exam findings, and any diagnostic results supporting the discharge/admit diagnosis, lab results, radiology results, the need for outpatient follow up, to return to the emergency department if symptoms worsen or persist or if there are any questions or concerns that arise at home. ED course: CT negative for an acute process. Normal H/H, No hypotensive. Patient advised to continue PPI and will need to follow up with GI for further evaluation. Patient otherwise given strict return precautions. Patient understood and agrees with the plan of care. . 07/22 15:50 Order name: Basic Metabolic Panel; Complete Time: 16:57 [facility] 07/22 15:50 Order name: CBC with Diff; Complete Time: 16:57 [facility] 07/22 15:50 Order name: Creatinine for Radiology; Complete Time: 16:57 [facility] 07/22 15:50 Order name: Hepatic Function; Complete Time: 16:57 [facility] 07/22 15:50 Order name: Lipase; Complete Time: 16:57 [facility] 07/22 15:50 Order name: Type And Screen; Complete Time: 17:10 [facility] 07/22 15:50 Order name: PT-INR; Complete Time: 16:57 [facility] 07/22 16:10 Order name: CT Abd/Pelvis - IV Contrast Only; Complete Time: 17:53 [facility] 07/22 15:50 Order name: IV Saline Lock; Complete Time: 16:22 [facility] 07/22 15:50 Order name: Labs collected and sent; Complete Time: 16:22 jm Administered Medications: 16:10 Drug: NS 0.9% 1000 ml Route: IV; Rate: 1 bolus; Site: left antecubital; tw2 18:45 Follow up: Response: No adverse reaction; IV Status: Completed infusion; IV Intake: tw2 1000ml 16:10 Drug: Zofran 4 mg Route: IVP; Site: left antecubital; tw2 17:00 Follow up: Response: No adverse reaction tw2 16:14 Drug: morphine 4 mg Route: IVP; Site: left antecubital; tw2 17:00 Follow up: Response: No adverse reaction; Pain is unchanged, physician notified; RASS: tw2 Alert and Calm (0) 17:04 Drug: morphine 4 mg Route: IVP; Site: left antecubital; tw2 17:56 Follow up: Response: No adverse reaction; Pain is unchanged, physician notified; RASS: tw2 Alert and Calm (0) 17:50 Drug: ProTONIX 40 mg Route: IVP; Site: left antecubital; tw2 18:01 Follow up: Response: No adverse reaction tw2 17:53 Drug: Dilaudid 0.5 mg Route: IVP; Site: left antecubital; tw2 18:44 Follow up: Response: No adverse reaction; Pain is decreased; RASS: Alert and Calm (0) tw2 18:06 Drug: GI Cocktail without - (Maalox Suspension 30 ml, Lidocaine Liquid 2 % 15 tw2 ml) Route: PO; 18:44 Follow up: Response: No adverse reaction tw2 Disposition: 07/23 06:45 Co-signature as Attending Physician, Justin Rowe MD I agree with the assessment and tw4 plan of care. Disposition: 07/22/19 18:08 Discharged to Home. Impression: Alcohol-induced chronic pancreatitis, Gastrointestinal hemorrhage, unspecified. - Condition is Stable. - Discharge Instructions: Gastrointestinal Bleeding, Rectal Bleeding. - Prescriptions for Ultracet 37.5- 325 mg Oral Tablet - take 1 tablet by ORAL route every 6 hours - for up to 5 days; do not exceed 8 tablets per day.; 20 tablet. Carafate 1 gram Oral Tablet - take 1 tablet by ORAL route 4 times per day take on an empty stomach, beginning on waking and last dose at bedtime; 100 tablet. - Medication Reconciliation Form, Thank You Letter, Antibiotic Education, Prescription Opioid Use, Work release form form. - Follow up: Private Physician; When: 2 - 3 days; Reason: Recheck today's complaints, Continuance of care, Re-evaluation by your physician. Signatures: Dispatcher [employer] EDMS Norberto Cameron PA PA jmm Calderon, Audri RN RN aa5 Ramona Vanessa RN RN tw2 Justin Rowe MD MD tw4 Corrections: (The following items were deleted from the chart) 07/22 18:46 18:08 07/22/2019 18:08 Discharged to Home. Impression: Alcohol-induced chronic tw2 pancreatitis; Gastrointestinal hemorrhage, unspecified. Condition is Stable. Forms are Work release form, Medication Reconciliation Form, Thank You Letter, Antibiotic Education, Prescription Opioid Use. Follow up: Private Physician; When: 2 - 3 days; Reason: Recheck today's complaints, Continuance of care, Re-evaluation by your physician. marguerite
[2019-07-22 19:17] VITALS: TEMP 98.5
[2019-07-22 19:21] VITALS: O2SAT 100
[2019-07-22 19:25] VITALS: BP 146/78
== END 2019-07-22 18:46 | disposition home or self-care (01) ==
LOC: ER 15:23
DX: K86.0 Alcohol-induced chronic pancreatitis (principal); K92.2 Gastrointestinal hemorrhage, unspecified; I10 Essential (primary) hypertension; F17.210 Nicotine dependence, cigarettes, uncomplicated; F90.9 Attention-deficit hyperactivity disorder, unspecified type
CPT/HCPCS: 36415; 74177; 80048; 80076; 83690; 85025; 85610; 86850; 86900; 86901; 96361; 96374; 96375; 99284; C9113; J1170; J2405; J7030; Q9967

== ENCOUNTER 2019-07-29 18:46 | Inpatient (IN) | payer SELFPAY ==
--- OUTSIDE RECORDS SUMMARY | 2019-07-29 18:53 | XMS REPORT ---
:1985 Author Organization [facility] Address [address] [place] [address] [address] [place] [address] Care Team Providers Name Role Phone DMITRI [...] Value Reference Range Comments LIPASE (BEAKER) (test iczs=191) 257 U/L 8-78 BASIC METABOLIC [id number] 03:05:00 Test Item Value Reference Range Comments SODIUM (BEAKER) (test 136 meq/L 136-145 xbtl=808) POTASSIUM (BEAKER) (test 4.5 meq/L 3.5-5.1 Specimen slightly zwcn=965) hemolyzed CHLORIDE (BEAKER) (test 104 meq/L 98-107 ptub=378) CO2 (BEAKER) (test 25 meq/L 22-29 otjj=307) BLOOD UREA NITROGEN 5 mg/dL 7-21 (BEAKER) (test etpz=309) CREATININE (BEAKER) (test 0.57 mg/dL 0.57-1.25 Specimen slightly zjsn=988) hemolyzed GLUCOSE RANDOM (BEAKER) 87 mg/dL 70-105 (test nonq=433) CALCIUM (BEAKER) (test 8.4 mg/dL 8.4-10.2 frek=490) EGFR (BEAKER) (test 166 mL/min/1.73 sq m ESTIMATED GFR IS NOT abuw=3567) ACCURATE CREATININE CLEARANCE IN PREDICTING GLOMERULAR FILTRATION RATE. ESTIMATED GFR IS NOT APPLICABLE FOR DIALYSIS PATIENTS. BASIC METABOLIC [id number] 04:41:00 Test Item Value Reference Range Comments SODIUM (BEAKER) (test 134 meq/L 136-145 zmte=362) POTASSIUM (BEAKER) (test 3.9 meq/L 3.5-5.1 Specimen slightly rpmv=916) hemolyzed CHLORIDE (BEAKER) (test 102 meq/L 98-107 hcbq=596) CO2 (BEAKER) (test 26 meq/L 22-29 xqjm=246) BLOOD UREA NITROGEN 3 mg/dL 7-21 (BEAKER) (test tkde=338) CREATININE (BEAKER) (test 0.50 mg/dL 0.57-1.25 Specimen slightly bfpv=901) hemolyzed GLUCOSE RANDOM (BEAKER) 95 mg/dL 70-105 (test xuua=251) CALCIUM (BEAKER) (test 7.9 mg/dL 8.4-10.2 dabx=595) EGFR (BEAKER) (test 193 mL/min/1.73 sq m ESTIMATED GFR IS NOT qsea=9862) ACCURATE CREATININE CLEARANCE IN PREDICTING GLOMERULAR FILTRATION RATE. ESTIMATED GFR IS NOT APPLICABLE FOR DIALYSIS PATIENTS. [id number] 04:31:00 Test Item Value Reference Range Comments LIPASE (BEAKER) (test vepi=931) 334 U/L 8-78 TROPONIN [id number] 03:00:00 Test Item Value Reference Range Comments TROPONIN I (BEAKER) (test rwwp=636) < ng/mL 0.00-0.03 Troponin I (TnI) levels [...] failure, acidosis, acute neurological disease, and persistent tachyarrhythmia.[id number] 02:54:00 Test Item Value Reference Range Comments MAGNESIUM (BEAKER) (test 1.9 mg/dL 1.6-2.6 Specimen slightly hemolyzed heee=957) BASIC METABOLIC [id number] 02:54:00 Test Item Value Reference Range Comments SODIUM (BEAKER) (test 136 meq/L 136-145 tnfb=616) POTASSIUM (BEAKER) (test 3.8 meq/L 3.5-5.1 Specimen slightly rnln=230) hemolyzed CHLORIDE (BEAKER) (test 100 meq/L 98-107 znty=368) CO2 (BEAKER) (test 28 meq/L 22-29 xjjg=138) BLOOD UREA NITROGEN 3 mg/dL 7-21 (BEAKER) (test kpnw=651) CREATININE (BEAKER) (test 0.56 mg/dL 0.57-1.25 Specimen slightly evtx=622) hemolyzed GLUCOSE RANDOM (BEAKER) 111 mg/dL 70-105 (test irqp=715) CALCIUM (BEAKER) (test 8.3 mg/dL 8.4-10.2 omyt=284) EGFR (BEAKER) (test 169 mL/min/1.73 sq m ESTIMATED GFR IS NOT iobb=8871) ACCURATE CREATININE CLEARANCE IN PREDICTING GLOMERULAR FILTRATION RATE. ESTIMATED GFR IS NOT APPLICABLE FOR DIALYSIS PATIENTS. [id number] 02:54:00 Test Item Value Reference Range Comments LIPASE (BEAKER) (test jiel=811) 755 U/L 8-78 CBC W/PLT COUNT & AUTO [id number] 02:33:00 Test Item Value Reference Range Comments WHITE BLOOD CELL COUNT (BEAKER) (test rmsi=254) 5.7 K/ L 3.5-10.5 RED BLOOD CELL COUNT (BEAKER) (test mhmm=108) 3.90 M/ L 4.63-6.08 HEMOGLOBIN (BEAKER) (test vida=504) 12.0 GM/DL 13.7-17.5 HEMATOCRIT (BEAKER) (test dntt=123) 36.5 % 40.1-51.0 MEAN CORPUSCULAR VOLUME (BEAKER) (test mdhq=928) 93.6 fL 79.0-92.2 MEAN CORPUSCULAR HEMOGLOBIN (BEAKER) (test 30.8 pg 25.7-32.2 fvan=848) MEAN CORPUSCULAR HEMOGLOBIN CONC (BEAKER) (test 32.9 GM/DL 32.3-36.5 nwgq=353) RED CELL DISTRIBUTION WIDTH (BEAKER) (test 13.6 % 11.6-14.4 genm=821) PLATELET COUNT (BEAKER) (test npch=991) 155 K/CU MM 150-450 MEAN PLATELET VOLUME (BEAKER) (test gdie=283) 9.4 fL 9.4-12.4 NUCLEATED RED BLOOD CELLS (BEAKER) (test 0 /100 WBC 0-0 zqui=323) NEUTROPHILS RELATIVE PERCENT (BEAKER) (test 70 % ljmu=885) LYMPHOCYTES RELATIVE PERCENT (BEAKER) (test 19 % svsv=818) MONOCYTES RELATIVE PERCENT (BEAKER) (test 8 % iaum=148) EOSINOPHILS RELATIVE PERCENT (BEAKER) (test 2 % unqd=667) BASOPHILS RELATIVE PERCENT (BEAKER) (test 1 % rhuk=934) NEUTROPHILS ABSOLUTE COUNT (BEAKER) (test 4.03 K/ L 1.78-5.38 zlkm=426) LYMPHOCYTES ABSOLUTE COUNT (BEAKER) (test 1.07 K/ L 1.32-3.57 tdqb=346) MONOCYTES ABSOLUTE COUNT (BEAKER) (test 0.45 K/ L 0.30-0.82 uysh=884) EOSINOPHILS ABSOLUTE COUNT (BEAKER) (test 0.12 K/ L 0.04-0.54 dcoz=253) BASOPHILS ABSOLUTE COUNT (BEAKER) (test 0.05 K/ L 0.01-0.08 nddl=389) IMMATURE GRANULOCYTES-RELATIVE PERCENT (BEAKER) 0 % 0-1 (test rsfc=9472) RAD, CHEST, 1 VIEW, NON [id number] 02:26:00Reason for exam:->pleuritic chest painShould this be [...] To [facility] MDReport Verified Date/Time: 03/22/2019 02:26:18 [id number] 08:35:00 Test Item Value Reference Range Comments MAGNESIUM (BEAKER) (test 1.4 mg/dL 1.6-2.6 Specimen slightly hemolyzed jkiw=450) BASIC METABOLIC [id number] 08:35:00 Test Item Value Reference Range Comments SODIUM (BEAKER) (test 138 meq/L 136-145 bwkc=116) POTASSIUM (BEAKER) (test 3.7 meq/L 3.5-5.1 Specimen slightly pnwf=749) hemolyzed CHLORIDE (BEAKER) (test 102 meq/L 98-107 flpd=082) CO2 (BEAKER) (test 23 meq/L 22-29 befv=329) BLOOD UREA NITROGEN 4 mg/dL 7-21 (BEAKER) (test qpcx=360) CREATININE (BEAKER) (test 0.48 mg/dL 0.57-1.25 Specimen slightly updb=247) hemolyzed GLUCOSE RANDOM (BEAKER) 53 mg/dL 70-105 (test almj=733) CALCIUM (BEAKER) (test 8.1 mg/dL 8.4-10.2 mgzz=555) EGFR (BEAKER) (test 202 mL/min/1.73 sq m ESTIMATED GFR IS NOT herm=0826) ACCURATE CREATININE CLEARANCE IN PREDICTING GLOMERULAR FILTRATION RATE. ESTIMATED GFR IS NOT APPLICABLE FOR DIALYSIS PATIENTS. HEPATIC FUNCTION [id number] 08:35:00 Test Item Value Reference Range Comments TOTAL PROTEIN (BEAKER) (test 6.2 gm/dL 6.0-8.3 Specimen slightly hemolyzed mxec=256) ALBUMIN (BEAKER) (test 2.7 g/dL 3.5-5.0 Specimen slightly hemolyzed apxx=0487) BILIRUBIN TOTAL (BEAKER) (test 0.5 mg/dL 0.2-1.2 Specimen slightly hemolyzed jgzs=884) BILIRUBIN DIRECT (BEAKER) (test 0.3 mg/dL 0.1-0.5 Specimen slightly hemolyzed pbcw=044) ALKALINE PHOSPHATASE (BEAKER) 151 U/L 40-150 (test habn=565) AST (SGOT) (BEAKER) (test 64 U/L 5-34 Specimen slightly hemolyzed atdj=222) ALT (SGPT) (BEAKER) (test 21 U/L 6-55 Specimen slightly hemolyzed dadd=445) [id number] 08:35:00 Test Item Value Reference Range Comments LIPASE (BEAKER) (test deis=909) 242 U/L 8-78 CBC W/PLT COUNT & AUTO [id number] 06:25:00 Test Item Value Reference Range Comments WHITE BLOOD CELL COUNT (BEAKER) (test xwui=572) 4.2 K/ L 3.5-10.5 RED BLOOD CELL COUNT (BEAKER) (test mlfx=885) 4.14 M/ L 4.63-6.08 HEMOGLOBIN (BEAKER) (test zqdz=749) 12.7 GM/DL 13.7-17.5 HEMATOCRIT (BEAKER) (test hveb=338) 39.8 % 40.1-51.0 MEAN CORPUSCULAR VOLUME (BEAKER) (test qvlw=316) 96.1 fL 79.0-92.2 MEAN CORPUSCULAR HEMOGLOBIN (BEAKER) (test 30.7 pg 25.7-32.2 oiio=955) MEAN CORPUSCULAR HEMOGLOBIN CONC (BEAKER) (test 31.9 GM/DL 32.3-36.5 exgr=603) RED CELL DISTRIBUTION WIDTH (BEAKER) (test 13.5 % 11.6-14.4 vkhh=433) PLATELET COUNT (BEAKER) (test dzfk=117) 186 K/CU MM 150-450 MEAN PLATELET VOLUME (BEAKER) (test umlr=268) 10.9 fL 9.4-12.4 NUCLEATED RED BLOOD CELLS (BEAKER) (test 0 /100 WBC 0-0 ymsk=123) NEUTROPHILS RELATIVE PERCENT (BEAKER) (test 55 % ccml=453) LYMPHOCYTES RELATIVE PERCENT (BEAKER) (test 31 % hisf=857) MONOCYTES RELATIVE PERCENT (BEAKER) (test 8 % aqmr=347) EOSINOPHILS RELATIVE PERCENT (BEAKER) (test 5 % ckdz=099) BASOPHILS RELATIVE PERCENT (BEAKER) (test 1 % dnwc=565) NEUTROPHILS ABSOLUTE COUNT (BEAKER) (test 2.28 K/ L 1.78-5.38 cwvs=485) LYMPHOCYTES ABSOLUTE COUNT (BEAKER) (test 1.28 K/ L 1.32-3.57 objc=084) MONOCYTES ABSOLUTE COUNT (BEAKER) (test 0.35 K/ L 0.30-0.82 dzun=528) EOSINOPHILS ABSOLUTE COUNT (BEAKER) (test 0.21 K/ L 0.04-0.54 mbqq=848) BASOPHILS ABSOLUTE COUNT (BEAKER) (test 0.05 K/ L 0.01-0.08 pdlg=152) IMMATURE GRANULOCYTES-RELATIVE PERCENT (BEAKER) 0 % 0-1 (test qcuf=5133) [id number] 07:42:00 Test Item Value Reference Range Comments MAGNESIUM (BEAKER) (test muxk=764) 1.5 mg/dL 1.6-2.6 BASIC METABOLIC [id number] 07:42:00 Test Item Value Reference Range Comments SODIUM (BEAKER) (test 140 meq/L 136-145 ywrt=769) POTASSIUM (BEAKER) (test 3.3 meq/L 3.5-5.1 hzkp=422) CHLORIDE (BEAKER) (test 106 meq/L 98-107 xpwb=757) CO2 (BEAKER) (test 27 meq/L 22-29 foik=267) BLOOD UREA NITROGEN 6 mg/dL 7-21 (BEAKER) (test hwwu=666) CREATININE (BEAKER) (test 0.53 mg/dL 0.57-1.25 cibb=189) GLUCOSE RANDOM (BEAKER) 81 mg/dL 70-105 (test owoi=404) CALCIUM (BEAKER) (test 8.2 mg/dL 8.4-10.2 jmgl=190) EGFR (BEAKER) (test 180 mL/min/1.73 sq m ESTIMATED GFR IS NOT yorr=0472) ACCURATE CREATININE CLEARANCE IN PREDICTING GLOMERULAR FILTRATION RATE. ESTIMATED GFR IS NOT APPLICABLE FOR DIALYSIS PATIENTS. LIPID [id number] 07:42:00 Test Item Value Reference Range Comments TRIGLYCERIDES (BEAKER) (test ajnm=389) 63 mg/dL CHOLESTEROL (BEAKER) (test ofof=881) 101 mg/dL HDL CHOLESTEROL (BEAKER) (test xjdn=403) 20 mg/dL LDL CHOLESTEROL CALCULATED (BEAKER) (test 68 mg/dL dlzk=103) Triglyceride Reference Range: Low Risk <150 Borderline 150- 199 High Risk 200-499 Very High Risk >=500Cholesterol Reference Range: Low Risk <200 Borderline 200-239 High Risk > 240HDL Cholesterol Reference Range: Low Risk >=60 High Risk <40LDL Cholesterol Reference Range: Optimal <100 Near Optimal 100-129 Borderline 130-159 High 160-189 Very High >=190HEPATIC FUNCTION [id number] 07:42:00 Test Item Value Reference Range Comments TOTAL PROTEIN (BEAKER) (test odxw=656) 6.1 gm/dL 6.0-8.3 ALBUMIN (BEAKER) (test nyny=6028) 2.7 g/dL 3.5-5.0 BILIRUBIN TOTAL (BEAKER) (test igck=459) 0.6 mg/dL 0.2-1.2 BILIRUBIN DIRECT (BEAKER) (test bmvf=747) 0.4 mg/dL 0.1-0.5 ALKALINE PHOSPHATASE (BEAKER) (test jteh=270) 157 U/L 40-150 AST (SGOT) (BEAKER) (test bwej=222) 58 U/L 5-34 ALT (SGPT) (BEAKER) (test sqwf=285) 21 U/L 6-55 CBC W/PLT COUNT & AUTO [id number] 05:47:00 Test Item Value Reference Range Comments WHITE BLOOD CELL COUNT (BEAKER) (test dkct=353) 4.3 K/ L 3.5-10.5 RED BLOOD CELL COUNT (BEAKER) (test jtkg=623) 3.66 M/ L 4.63-6.08 HEMOGLOBIN (BEAKER) (test cuik=272) 11.4 GM/DL 13.7-17.5 HEMATOCRIT (BEAKER) (test seax=427) 35.8 % 40.1-51.0 MEAN CORPUSCULAR VOLUME (BEAKER) (test itwl=806) 97.8 fL 79.0-92.2 MEAN CORPUSCULAR HEMOGLOBIN (BEAKER) (test 31.1 pg 25.7-32.2 iage=481) MEAN CORPUSCULAR HEMOGLOBIN CONC (BEAKER) (test 31.8 GM/DL 32.3-36.5 fcro=251) RED CELL DISTRIBUTION WIDTH (BEAKER) (test 14.2 % 11.6-14.4 sgwj=945) PLATELET COUNT (BEAKER) (test xfob=893) 170 K/CU MM 150-450 MEAN PLATELET VOLUME (BEAKER) (test huuk=390) 9.9 fL 9.4-12.4 NUCLEATED RED BLOOD CELLS (BEAKER) (test 0 /100 WBC 0-0 cniy=398) NEUTROPHILS RELATIVE PERCENT (BEAKER) (test 55 % prje=660) LYMPHOCYTES RELATIVE PERCENT (BEAKER) (test 30 % qgpa=212) MONOCYTES RELATIVE PERCENT (BEAKER) (test 10 % ssyk=728) EOSINOPHILS RELATIVE PERCENT (BEAKER) (test 4 % bwoh=196) BASOPHILS RELATIVE PERCENT (BEAKER) (test 1 % edha=939) NEUTROPHILS ABSOLUTE COUNT (BEAKER) (test 2.36 K/ L 1.78-5.38 ucbw=777) LYMPHOCYTES ABSOLUTE COUNT (BEAKER) (test 1.30 K/ L 1.32-3.57 gbfe=533) MONOCYTES ABSOLUTE COUNT (BEAKER) (test 0.41 K/ L 0.30-0.82 kmut=101) EOSINOPHILS ABSOLUTE COUNT (BEAKER) (test 0.18 K/ L 0.04-0.54 vkbq=688) BASOPHILS ABSOLUTE COUNT (BEAKER) (test 0.03 K/ L 0.01-0.08 ujrs=989) IMMATURE GRANULOCYTES-RELATIVE PERCENT (BEAKER) 1 % 0-1 (test dacy=9379) RAPID DRUG SCREEN, [id number] 23:57:00 Test Item Value Reference Range Comments BARBITURATE URINE (BEAKER) (test rxfc=457) Negative Negative BENZODIAZEPINE SCREEN URINE (BEAKER) (test Positive Negative rdlo=036) COCAINE (METAB.) SCREEN (BEAKER) (test kewy=1600) Negative Negative METHADONE SCREEN (BEAKER) (test oktw=8134) Negative Negative OPIATE SCREEN URINE (BEAKER) (test jfiq=117) Negative Negative CANNABINOID SCREEN URINE (BEAKER) (test yppm=542) Positive Negative AMPH/METHAMPH SCREEN (BEAKER) (test ibjl=7513) Positive Negative PHENCYCLIDINE SCREEN URINE (BEAKER) (test gwhy=121) Negative Negative DRUG CUTOFF CONC.Cocaine 300 ng/mL Cannabinoid 50 ng/mLBenzodiazepine 200 ng/mLBarbiturate 200 ng/ mLPhencyclidine 25 ng/mLOpiate 300 ng/mLMethadone 300 ng/mLAmphetamine/ 1000 ng/mL MethamphetamineThis assay provides an unconfirmed qualitative test result for the clinical management of patients in emergency situations. Chain of custody not maintained. Some xrds-ays-iwuyfbt medications, as well as adulterants, may cause inaccurate results. Clinical correlation should be applied. A more comprehensivedrug screen or confirmation of a detected drug may be performed upon request.BASIC METABOLIC [id number] 23:23:00 Test Item Value Reference Range Comments SODIUM (BEAKER) (test 139 meq/L 136-145 dupy=747) POTASSIUM (BEAKER) (test 3.1 meq/L 3.5-5.1 ocnf=484) CHLORIDE (BEAKER) (test 103 meq/L 98-107 xjps=000) CO2 (BEAKER) (test 28 meq/L 22-29 wmjv=763) BLOOD UREA NITROGEN 8 mg/dL 7-21 (BEAKER) (test gbls=550) CREATININE (BEAKER) (test 0.60 mg/dL 0.57-1.25 qhhg=281) GLUCOSE RANDOM (BEAKER) 92 mg/dL 70-105 (test uvtj=442) CALCIUM (BEAKER) (test 8.6 mg/dL 8.4-10.2 oofp=284) EGFR (BEAKER) (test 156 mL/min/1.73 sq m ESTIMATED GFR IS NOT tbqy=4030) ACCURATE CREATININE CLEARANCE IN PREDICTING GLOMERULAR FILTRATION RATE. ESTIMATED GFR IS NOT APPLICABLE FOR DIALYSIS PATIENTS. HEPATIC FUNCTION [id number] 23:23:00 Test Item Value Reference Range Comments TOTAL PROTEIN (BEAKER) (test vhuf=666) 7.1 gm/dL 6.0-8.3 ALBUMIN (BEAKER) (test joul=0342) 3.2 g/dL 3.5-5.0 BILIRUBIN TOTAL (BEAKER) (test byrz=537) 0.5 mg/dL 0.2-1.2 BILIRUBIN DIRECT (BEAKER) (test rhoo=456) 0.4 mg/dL 0.1-0.5 ALKALINE PHOSPHATASE (BEAKER) (test emkx=542) 187 U/L 40-150 AST (SGOT) (BEAKER) (test gxuh=358) 62 U/L 5-34 ALT (SGPT) (BEAKER) (test sdnt=830) 24 U/L 6-55 [id number] 22:57:00 Test Item Value Reference Range Comments LIPASE (BEAKER) (test mumo=455) 957 U/L 8-78 [id number] 22:57:00 Test Item Value Reference Range Comments AMYLASE (BEAKER) (test dmkp=317) 391 U/L 25-125 [id number] 22:56:00 Test Item Value Reference Range Comments PROTIME (BEAKER) (test zsnz=175) 15.8 seconds 11.9-14.2 INR (BEAKER) (test jlnv=998) 1.3 <=5.9 PARTIAL THROMBOPLASTIN TIME (BEAKER) (test 30.9 seconds 22.5-36.0 voof=782) Effective 12/11/2018: PT Reference Range ChangeNew: 11.9-14.2 Previous: 11.7- 14.7RECOMMENDED COUMADIN/WARFARIN INR THERAPY RANGESSTANDARD DOSE: 2.0-3.0 Includes: PROPHYLAXIS for venous thrombosis, systemic embolization; TREATMENT for venous thrombosis and/or pulmonary embolus.HIGH RISK: Target INR is2.5-3.5 for patients wiht mechanical heart valves.CBC W/PLT COUNT & AUTO [id number] 22:41:00 Test Item Value Reference Range Comments WHITE BLOOD CELL COUNT (BEAKER) (test ocor=504) 6.4 K/ L 3.5-10.5 RED BLOOD CELL COUNT (BEAKER) (test hjth=867) 3.99 M/ L 4.63-6.08 HEMOGLOBIN (BEAKER) (test igbj=705) 12.6 GM/DL 13.7-17.5 HEMATOCRIT (BEAKER) (test tfmc=695) 39.0 % 40.1-51.0 MEAN CORPUSCULAR VOLUME (BEAKER) (test chav=400) 97.7 fL 79.0-92.2 MEAN CORPUSCULAR HEMOGLOBIN (BEAKER) (test 31.6 pg 25.7-32.2 fhbf=241) MEAN CORPUSCULAR HEMOGLOBIN CONC (BEAKER) (test 32.3 GM/DL 32.3-36.5 zwoy=318) RED CELL DISTRIBUTION WIDTH (BEAKER) (test 14.1 % 11.6-14.4 jpcv=555) PLATELET COUNT (BEAKER) (test yedc=227) 187 K/CU MM 150-450 MEAN PLATELET VOLUME (BEAKER) (test gqpo=593) 9.3 fL 9.4-12.4 NUCLEATED RED BLOOD CELLS (BEAKER) (test 0 /100 WBC 0-0 mure=258) NEUTROPHILS RELATIVE PERCENT (BEAKER) (test 68 % amjp=507) LYMPHOCYTES RELATIVE PERCENT (BEAKER) (test 19 % wvxf=820) MONOCYTES RELATIVE PERCENT (BEAKER) (test 10 % auzn=452) EOSINOPHILS RELATIVE PERCENT (BEAKER) (test 2 % bwei=843) BASOPHILS RELATIVE PERCENT (BEAKER) (test 1 % cfaw=799) NEUTROPHILS ABSOLUTE COUNT (BEAKER) (test 4.31 K/ L 1.78-5.38 tyfs=843) LYMPHOCYTES ABSOLUTE COUNT (BEAKER) (test 1.21 K/ L 1.32-3.57 lcny=870) MONOCYTES ABSOLUTE COUNT (BEAKER) (test 0.65 K/ L 0.30-0.82 dzmf=492) EOSINOPHILS ABSOLUTE COUNT (BEAKER) (test 0.14 K/ L 0.04-0.54 nvnh=704) BASOPHILS ABSOLUTE COUNT (BEAKER) (test 0.04 K/ L 0.01-0.08 uzcz=006) IMMATURE GRANULOCYTES-RELATIVE PERCENT (BEAKER) 0 % 0-1 (test kxas=2018) COMPREHENSIVE METABOLIC [id number] 06:44:00 Test Item Value Reference Range Comments TOTAL PROTEIN (BEAKER) 6.2 gm/dL 6.0-8.3 (test rglp=530) ALBUMIN (BEAKER) (test 2.7 g/dL 3.5-5.0 pbhs=1705) ALKALINE PHOSPHATASE 195 U/L 40-150 (BEAKER) (test amfo=715) BILIRUBIN TOTAL (BEAKER) 0.7 mg/dL 0.2-1.2 (test uhei=032) SODIUM (BEAKER) (test 138 meq/L 136-145 jghz=057) POTASSIUM (BEAKER) (test 3.6 meq/L 3.5-5.1 pzxp=635) CHLORIDE (BEAKER) (test 102 meq/L 98-107 pgbm=957) CO2 (BEAKER) (test 28 meq/L 22-29 ipnx=499) BLOOD UREA NITROGEN 2 mg/dL 7-21 (BEAKER) (test sefd=661) CREATININE (BEAKER) (test 0.52 mg/dL 0.57-1.25 emej=120) GLUCOSE RANDOM (BEAKER) 103 mg/dL 70-105 (test jorj=865) CALCIUM (BEAKER) (test 8.5 mg/dL 8.4-10.2 iujb=095) AST (SGOT) (BEAKER) (test 67 U/L 5-34 bqqk=495) ALT (SGPT) (BEAKER) (test 31 U/L 6-55 ahzs=225) EGFR (BEAKER) (test 184 mL/min/1.73 sq ESTIMATED GFR IS NOT sclz=1004) m ACCURATE CREATININE CLEARANCE IN PREDICTING GLOMERULAR FILTRATION RATE. ESTIMATED GFR IS NOT APPLICABLE FOR DIALYSIS PATIENTS. CBC W/PLT COUNT & AUTO [id number] 06:09:00 Test Item Value Reference Range Comments WHITE BLOOD CELL COUNT (BEAKER) (test rahp=193) 4.0 K/ L 3.5-10.5 RED BLOOD CELL COUNT (BEAKER) (test jgzo=214) 3.23 M/ L 4.63-6.08 HEMOGLOBIN (BEAKER) (test jycn=828) 10.6 GM/DL 13.7-17.5 HEMATOCRIT (BEAKER) (test tgbh=537) 33.2 % 40.1-51.0 MEAN CORPUSCULAR VOLUME (BEAKER) (test unnv=405) 102.8 fL 79.0-92.2 MEAN CORPUSCULAR HEMOGLOBIN (BEAKER) (test 32.8 pg 25.7-32.2 nixm=679) MEAN CORPUSCULAR HEMOGLOBIN CONC (BEAKER) (test 31.9 GM/DL 32.3-36.5 gimr=162) RED CELL DISTRIBUTION WIDTH (BEAKER) (test 15.5 % 11.6-14.4 opqt=542) PLATELET COUNT (BEAKER) (test roew=927) 226 K/CU MM 150-450 MEAN PLATELET VOLUME (BEAKER) (test qmvd=023) 10.4 fL 9.4-12.4 NUCLEATED RED BLOOD CELLS (BEAKER) (test 0 /100 WBC 0-0 jzla=404) NEUTROPHILS RELATIVE PERCENT (BEAKER) (test 54 % clyk=122) LYMPHOCYTES RELATIVE PERCENT (BEAKER) (test 29 % pssp=412) MONOCYTES RELATIVE PERCENT (BEAKER) (test 9 % xdul=345) EOSINOPHILS RELATIVE PERCENT (BEAKER) (test 6 % hqbp=372) BASOPHILS RELATIVE PERCENT (BEAKER) (test 1 % mspy=615) NEUTROPHILS ABSOLUTE COUNT (BEAKER) (test 2.17 K/ L 1.78-5.38 ummi=729) LYMPHOCYTES ABSOLUTE COUNT (BEAKER) (test 1.18 K/ L 1.32-3.57 nwct=445) MONOCYTES ABSOLUTE COUNT (BEAKER) (test 0.37 K/ L 0.30-0.82 xdxo=627) EOSINOPHILS ABSOLUTE COUNT (BEAKER) (test 0.25 K/ L 0.04-0.54 bakl=242) BASOPHILS ABSOLUTE COUNT (BEAKER) (test 0.04 K/ L 0.01-0.08 tddw=186) IMMATURE GRANULOCYTES-RELATIVE PERCENT (BEAKER) 0 % 0-1 (test osyp=7485) COMPREHENSIVE METABOLIC [id number] 07:17:00 Test Item Value Reference Range Comments TOTAL PROTEIN (BEAKER) 7.3 gm/dL 6.0-8.3 (test jwer=490) ALBUMIN (BEAKER) (test 3.2 g/dL 3.5-5.0 zazy=3346) ALKALINE PHOSPHATASE 235 U/L 40-150 (BEAKER) (test bksd=052) BILIRUBIN TOTAL (BEAKER) 0.9 mg/dL 0.2-1.2 (test cxhm=114) SODIUM (BEAKER) (test 135 meq/L 136-145 hjzp=725) POTASSIUM (BEAKER) (test 3.6 meq/L 3.5-5.1 vefv=622) CHLORIDE (BEAKER) (test 101 meq/L 98-107 qlvl=180) CO2 (BEAKER) (test 29 meq/L 22-29 udpy=317) BLOOD UREA NITROGEN < mg/dL 7-21 (BEAKER) (test tycv=420) CREATININE (BEAKER) (test 0.56 mg/dL 0.57-1.25 lwpb=317) GLUCOSE RANDOM (BEAKER) 87 mg/dL 70-105 (test jqwh=267) CALCIUM (BEAKER) (test 8.6 mg/dL 8.4-10.2 bwgp=206) AST (SGOT) (BEAKER) (test 96 U/L 5-34 btuo=504) ALT (SGPT) (BEAKER) (test 40 U/L 6-55 bnut=409) EGFR (BEAKER) (test 169 mL/min/1.73 sq ESTIMATED GFR IS NOT rhkf=0382) m ACCURATE CREATININE CLEARANCE IN PREDICTING GLOMERULAR FILTRATION RATE. ESTIMATED GFR IS NOT APPLICABLE FOR DIALYSIS PATIENTS. CBC W/PLT COUNT & AUTO [id number] 06:05:00 Test Item Value Reference Range Comments WHITE BLOOD CELL COUNT (BEAKER) (test crii=643) 5.1 K/ L 3.5-10.5 RED BLOOD CELL COUNT (BEAKER) (test sahw=138) 3.60 M/ L 4.63-6.08 HEMOGLOBIN (BEAKER) (test frmo=956) 11.7 GM/DL 13.7-17.5 HEMATOCRIT (BEAKER) (test ezhq=944) 37.6 % 40.1-51.0 MEAN CORPUSCULAR VOLUME (BEAKER) (test ourl=445) 104.4 fL 79.0-92.2 MEAN CORPUSCULAR HEMOGLOBIN (BEAKER) (test 32.5 pg 25.7-32.2 dpwm=037) MEAN CORPUSCULAR HEMOGLOBIN CONC (BEAKER) (test 31.1 GM/DL 32.3-36.5 ujmw=050) RED CELL DISTRIBUTION WIDTH (BEAKER) (test 15.5 % 11.6-14.4 roes=713) PLATELET COUNT (BEAKER) (test qisu=207) 250 K/CU MM 150-450 MEAN PLATELET VOLUME (BEAKER) (test cfxe=581) 10.1 fL 9.4-12.4 NUCLEATED RED BLOOD CELLS (BEAKER) (test 0 /100 WBC 0-0 nuar=638) NEUTROPHILS RELATIVE PERCENT (BEAKER) (test 61 % yfso=748) LYMPHOCYTES RELATIVE PERCENT (BEAKER) (test 25 % vsul=114) MONOCYTES RELATIVE PERCENT (BEAKER) (test 8 % uegh=847) EOSINOPHILS RELATIVE PERCENT (BEAKER) (test 5 % ckho=853) BASOPHILS RELATIVE PERCENT (BEAKER) (test 1 % wlsy=296) NEUTROPHILS ABSOLUTE COUNT (BEAKER) (test 3.09 K/ L 1.78-5.38 lttp=383) LYMPHOCYTES ABSOLUTE COUNT (BEAKER) (test 1.28 K/ L 1.32-3.57 qcrt=458) MONOCYTES ABSOLUTE COUNT (BEAKER) (test 0.39 K/ L 0.30-0.82 snrk=457) EOSINOPHILS ABSOLUTE COUNT (BEAKER) (test 0.25 K/ L 0.04-0.54 dazg=759) BASOPHILS ABSOLUTE COUNT (BEAKER) (test 0.05 K/ L 0.01-0.08 ndna=800) IMMATURE GRANULOCYTES-RELATIVE PERCENT (BEAKER) 0 % 0-1 (test wxge=4628) [id number] 07:51:00 Test Item Value Reference Range Comments MAGNESIUM (BEAKER) (test iqrs=521) 1.7 mg/dL 1.6-2.6 COMPREHENSIVE METABOLIC [id number] 06:19:00 Test Item Value Reference Range Comments TOTAL PROTEIN (BEAKER) 6.1 gm/dL 6.0-8.3 (test qrzg=700) ALBUMIN (BEAKER) (test 2.7 g/dL 3.5-5.0 hbab=5056) ALKALINE PHOSPHATASE 214 U/L 40-150 (BEAKER) (test jues=920) BILIRUBIN TOTAL (BEAKER) 0.9 mg/dL 0.2-1.2 (test skyt=809) SODIUM (BEAKER) (test 139 meq/L 136-145 dfcs=751) POTASSIUM (BEAKER) (test 4.2 meq/L 3.5-5.1 pwuu=379) CHLORIDE (BEAKER) (test 110 meq/L 98-107 vtcu=741) CO2 (BEAKER) (test 24 meq/L 22-29 uvnc=969) BLOOD UREA NITROGEN < mg/dL 7-21 (BEAKER) (test zmjw=234) CREATININE (BEAKER) (test 0.50 mg/dL 0.57-1.25 vnoz=868) GLUCOSE RANDOM (BEAKER) 77 mg/dL 70-105 (test jthf=021) CALCIUM (BEAKER) (test 7.7 mg/dL 8.4-10.2 agns=177) AST (SGOT) (BEAKER) (test 96 U/L 5-34 bjix=512) ALT (SGPT) (BEAKER) (test 37 U/L 6-55 twwy=318) EGFR (BEAKER) (test 193 mL/min/1.73 sq ESTIMATED GFR IS NOT lfqe=3025) m ACCURATE CREATININE CLEARANCE IN PREDICTING GLOMERULAR FILTRATION RATE. ESTIMATED GFR IS NOT APPLICABLE FOR DIALYSIS PATIENTS. CBC W/PLT COUNT & AUTO [id number] 05:15:00 Test Item Value Reference Range Comments WHITE BLOOD CELL COUNT (BEAKER) (test somk=643) 4.8 K/ L 3.5-10.5 RED BLOOD CELL COUNT (BEAKER) (test tntg=797) 3.25 M/ L 4.63-6.08 HEMOGLOBIN (BEAKER) (test ynzy=598) 10.7 GM/DL 13.7-17.5 HEMATOCRIT (BEAKER) (test vuwj=865) 34.0 % 40.1-51.0 MEAN CORPUSCULAR VOLUME (BEAKER) (test bbrl=997) 104.6 fL 79.0-92.2 MEAN CORPUSCULAR HEMOGLOBIN (BEAKER) (test 32.9 pg 25.7-32.2 nvhu=469) MEAN CORPUSCULAR HEMOGLOBIN CONC (BEAKER) (test 31.5 GM/DL 32.3-36.5 ltuv=265) RED CELL DISTRIBUTION WIDTH (BEAKER) (test 15.5 % 11.6-14.4 rktl=497) PLATELET COUNT (BEAKER) (test fhqw=411) 219 K/CU MM 150-450 MEAN PLATELET VOLUME (BEAKER) (test bjxe=364) 10.2 fL 9.4-12.4 NUCLEATED RED BLOOD CELLS (BEAKER) (test 0 /100 WBC 0-0 npyc=593) NEUTROPHILS RELATIVE PERCENT (BEAKER) (test 56 % ubso=535) LYMPHOCYTES RELATIVE PERCENT (BEAKER) (test 29 % vuwp=463) MONOCYTES RELATIVE PERCENT (BEAKER) (test 8 % saxf=247) EOSINOPHILS RELATIVE PERCENT (BEAKER) (test 5 % dsaf=074) BASOPHILS RELATIVE PERCENT (BEAKER) (test 1 % jcrq=918) NEUTROPHILS ABSOLUTE COUNT (BEAKER) (test 2.69 K/ L 1.78-5.38 ukxc=086) LYMPHOCYTES ABSOLUTE COUNT (BEAKER) (test 1.40 K/ L 1.32-3.57 knuo=671) MONOCYTES ABSOLUTE COUNT (BEAKER) (test 0.37 K/ L 0.30-0.82 cawp=542) EOSINOPHILS ABSOLUTE COUNT (BEAKER) (test 0.25 K/ L 0.04-0.54 labx=576) BASOPHILS ABSOLUTE COUNT (BEAKER) (test 0.05 K/ L 0.01-0.08 erjb=500) IMMATURE GRANULOCYTES-RELATIVE PERCENT (BEAKER) 0 % 0-1 (test aaqe=1457) COMPREHENSIVE METABOLIC [id number] 09:35:00 Test Item Value Reference Range Comments TOTAL PROTEIN (BEAKER) 6.4 gm/dL 6.0-8.3 Specimen slightly (test phoj=999) hemolyzed ALBUMIN (BEAKER) (test 2.8 g/dL 3.5-5.0 Specimen slightly abtc=7693) hemolyzed ALKALINE PHOSPHATASE 214 U/L 40-150 (BEAKER) (test xxwk=449) BILIRUBIN TOTAL (BEAKER) 1.0 mg/dL 0.2-1.2 Specimen slightly (test neka=787) hemolyzed SODIUM (BEAKER) (test 136 meq/L 136-145 kepk=361) POTASSIUM (BEAKER) (test 4.2 meq/L 3.5-5.1 Specimen slightly dqsw=513) hemolyzed CHLORIDE (BEAKER) (test 107 meq/L 98-107 pqzj=891) CO2 (BEAKER) (test 23 meq/L 22-29 jwgo=449) BLOOD UREA NITROGEN 2 mg/dL 7-21 (BEAKER) (test qrvs=372) CREATININE (BEAKER) (test 0.54 mg/dL 0.57-1.25 Specimen slightly ouif=811) hemolyzed GLUCOSE RANDOM (BEAKER) 89 mg/dL 70-105 (test ftua=772) CALCIUM (BEAKER) (test 7.6 mg/dL 8.4-10.2 tbxw=031) AST (SGOT) (BEAKER) (test 101 U/L 5-34 Specimen slightly ebkf=923) hemolyzed ALT (SGPT) (BEAKER) (test 41 U/L 6-55 Specimen slightly gqmp=913) hemolyzed EGFR (BEAKER) (test 176 mL/min/1.73 sq ESTIMATED GFR IS NOT egdt=8126) m ACCURATE CREATININE CLEARANCE IN PREDICTING GLOMERULAR FILTRATION RATE. ESTIMATED GFR IS NOT APPLICABLE FOR DIALYSIS PATIENTS. [id number] 09:27:00 Test Item Value Reference Range Comments MAGNESIUM (BEAKER) (test 1.3 mg/dL 1.6-2.6 Specimen slightly hemolyzed iefz=173) CBC W/PLT COUNT & AUTO [id number] 09:04:00 Test Item Value Reference Range Comments WHITE BLOOD CELL COUNT (BEAKER) (test svmf=457) 5.7 K/ L 3.5-10.5 RED BLOOD CELL COUNT (BEAKER) (test uhlj=879) 3.18 M/ L 4.63-6.08 HEMOGLOBIN (BEAKER) (test xits=887) 10.4 GM/DL 13.7-17.5 HEMATOCRIT (BEAKER) (test nueh=490) 33.1 % 40.1-51.0 MEAN CORPUSCULAR VOLUME (BEAKER) (test rulk=151) 104.1 fL 79.0-92.2 MEAN CORPUSCULAR HEMOGLOBIN (BEAKER) (test 32.7 pg 25.7-32.2 osrc=809) MEAN CORPUSCULAR HEMOGLOBIN CONC (BEAKER) (test 31.4 GM/DL 32.3-36.5 ggfg=384) RED CELL DISTRIBUTION WIDTH (BEAKER) (test 15.9 % 11.6-14.4 kzzo=373) PLATELET COUNT (BEAKER) (test bnly=263) 223 K/CU MM 150-450 MEAN PLATELET VOLUME (BEAKER) (test dbqn=260) 10.4 fL 9.4-12.4 NUCLEATED RED BLOOD CELLS (BEAKER) (test 0 /100 WBC 0-0 iajj=152) NEUTROPHILS RELATIVE PERCENT (BEAKER) (test 58 % rjfz=492) LYMPHOCYTES RELATIVE PERCENT (BEAKER) (test 25 % vkhx=513) MONOCYTES RELATIVE PERCENT (BEAKER) (test 11 % baln=238) EOSINOPHILS RELATIVE PERCENT (BEAKER) (test 5 % swxf=727) BASOPHILS RELATIVE PERCENT (BEAKER) (test 1 % vybg=394) NEUTROPHILS ABSOLUTE COUNT (BEAKER) (test 3.27 K/ L 1.78-5.38 eaeo=714) LYMPHOCYTES ABSOLUTE COUNT (BEAKER) (test 1.40 K/ L 1.32-3.57 uhit=092) MONOCYTES ABSOLUTE COUNT (BEAKER) (test 0.61 K/ L 0.30-0.82 tqkk=558) EOSINOPHILS ABSOLUTE COUNT (BEAKER) (test 0.30 K/ L 0.04-0.54 gays=043) BASOPHILS ABSOLUTE COUNT (BEAKER) (test 0.07 K/ L 0.01-0.08 yegn=497) IMMATURE GRANULOCYTES-RELATIVE PERCENT (BEAKER) 0 % 0-1 (test rykw=4761) COMPREHENSIVE METABOLIC [id number] 05:26:00 Test Item Value Reference Range Comments TOTAL PROTEIN (BEAKER) 5.7 gm/dL 6.0-8.3 (test znpj=714) ALBUMIN (BEAKER) (test 2.6 g/dL 3.5-5.0 eucx=9514) ALKALINE PHOSPHATASE 204 U/L 40-150 (BEAKER) (test ajkl=184) BILIRUBIN TOTAL (BEAKER) 1.0 mg/dL 0.2-1.2 (test cqbx=062) SODIUM (BEAKER) (test 138 meq/L 136-145 pckj=911) POTASSIUM (BEAKER) (test 3.3 meq/L 3.5-5.1 slas=551) CHLORIDE (BEAKER) (test 106 meq/L 98-107 myzx=358) CO2 (BEAKER) (test 24 meq/L 22-29 zsuj=652) BLOOD UREA NITROGEN 5 mg/dL 7-21 (BEAKER) (test bncw=245) CREATININE (BEAKER) (test 0.53 mg/dL 0.57-1.25 smvi=581) GLUCOSE RANDOM (BEAKER) 85 mg/dL 70-105 (test vihi=769) CALCIUM (BEAKER) (test 7.3 mg/dL 8.4-10.2 juyj=099) AST (SGOT) (BEAKER) (test 108 U/L 5-34 buow=926) ALT (SGPT) (BEAKER) (test 46 U/L 6-55 wztb=515) EGFR (BEAKER) (test 180 mL/min/1.73 sq ESTIMATED GFR IS NOT dtbq=4442) m ACCURATE CREATININE CLEARANCE IN PREDICTING GLOMERULAR FILTRATION RATE. ESTIMATED GFR IS NOT APPLICABLE FOR DIALYSIS PATIENTS. PROTHROMBIN [id number] 05:08:00 Test Item Value Reference Range Comments PROTIME (BEAKER) (test ruaa=382) 17.0 seconds 11.9-14.2 INR (BEAKER) (test paaq=818) 1.5 <=5.9 Effective 12/11/2018: PT Reference Range ChangeNew: 11.9-14.2 Previous: 11.7- 14.7RECOMMENDED COUMADIN/WARFARIN INR THERAPY RANGESSTANDARD DOSE: 2.0-3.0 Includes: PROPHYLAXIS for venous thrombosis, systemic embolization; TREATMENT for venous thrombosis and/or pulmonary embolus.HIGH RISK: Target INR is2.5-3.5 for patients wiht mechanical heart valves.CBC W/PLT COUNT & AUTO [id number] 04:59:00 Test Item Value Reference Range Comments WHITE BLOOD CELL COUNT (BEAKER) (test dmxe=886) 6.1 K/ L 3.5-10.5 RED BLOOD CELL COUNT (BEAKER) (test xmfn=218) 2.96 M/ L 4.63-6.08 HEMOGLOBIN (BEAKER) (test acpa=890) 9.7 GM/DL 13.7-17.5 HEMATOCRIT (BEAKER) (test xlrr=883) 30.5 % 40.1-51.0 MEAN CORPUSCULAR VOLUME (BEAKER) (test fcmt=755) 103.0 fL 79.0-92.2 MEAN CORPUSCULAR HEMOGLOBIN (BEAKER) (test 32.8 pg 25.7-32.2 mwwe=503) MEAN CORPUSCULAR HEMOGLOBIN CONC (BEAKER) (test 31.8 GM/DL 32.3-36.5 bbhp=672) RED CELL DISTRIBUTION WIDTH (BEAKER) (test 16.0 % 11.6-14.4 oyxl=816) PLATELET COUNT (BEAKER) (test eawe=407) 221 K/CU MM 150-450 MEAN PLATELET VOLUME (BEAKER) (test evon=385) 10.7 fL 9.4-12.4 NUCLEATED RED BLOOD CELLS (BEAKER) (test 0 /100 WBC 0-0 gtmr=576) NEUTROPHILS RELATIVE PERCENT (BEAKER) (test 62 % fjaa=772) LYMPHOCYTES RELATIVE PERCENT (BEAKER) (test 22 % hfug=502) MONOCYTES RELATIVE PERCENT (BEAKER) (test 11 % gjdb=701) EOSINOPHILS RELATIVE PERCENT (BEAKER) (test 3 % cjsi=007) BASOPHILS RELATIVE PERCENT (BEAKER) (test 1 % bxbp=879) NEUTROPHILS ABSOLUTE COUNT (BEAKER) (test 3.81 K/ L 1.78-5.38 xqfm=543) LYMPHOCYTES ABSOLUTE COUNT (BEAKER) (test 1.32 K/ L 1.32-3.57 jdsy=961) MONOCYTES ABSOLUTE COUNT (BEAKER) (test 0.70 K/ L 0.30-0.82 djpt=188) EOSINOPHILS ABSOLUTE COUNT (BEAKER) (test 0.21 K/ L 0.04-0.54 twgj=800) BASOPHILS ABSOLUTE COUNT (BEAKER) (test 0.07 K/ L 0.01-0.08 ozzy=182) IMMATURE GRANULOCYTES-RELATIVE PERCENT (BEAKER) 0 % 0-1 (test sech=7498) POCT-GLUCOSE [id number] 07:44:00 Test Item Value Reference Range Comments POC-GLUCOSE METER (BEAKER) 90 mg/dL 70-110 TESTED AT [facility] [address] [facility] (test rbhw=7198) [facility] [address] COMPREHENSIVE METABOLIC [id number] 07:29:00 Test Item Value Reference Range Comments TOTAL PROTEIN (BEAKER) 5.7 gm/dL 6.0-8.3 (test ipcn=178) ALBUMIN (BEAKER) (test 2.5 g/dL 3.5-5.0 aver=1495) ALKALINE PHOSPHATASE 411 U/L 40-150 (BEAKER) (test uqbf=904) BILIRUBIN TOTAL (BEAKER) 1.7 mg/dL 0.2-1.2 (test xvsw=110) SODIUM (BEAKER) (test 139 meq/L 136-145 eqyk=798) POTASSIUM (BEAKER) (test 3.1 meq/L 3.5-5.1 sdsl=094) CHLORIDE (BEAKER) (test 105 meq/L 98-107 poql=306) CO2 (BEAKER) (test 24 meq/L 22-29 gyke=271) BLOOD UREA NITROGEN 3 mg/dL 7-21 (BEAKER) (test xozk=725) CREATININE (BEAKER) (test 0.61 mg/dL 0.57-1.25 dzlt=490) GLUCOSE RANDOM (BEAKER) 95 mg/dL 70-105 (test ktxz=809) CALCIUM (BEAKER) (test 6.8 mg/dL 8.4-10.2 qzuh=365) AST (SGOT) (BEAKER) (test 173 U/L 5-34 zupn=337) ALT (SGPT) (BEAKER) (test 53 U/L 6-55 jzbg=438) EGFR (BEAKER) (test 153 mL/min/1.73 sq ESTIMATED GFR IS NOT ohul=3523) m ACCURATE CREATININE CLEARANCE IN PREDICTING GLOMERULAR FILTRATION RATE. ESTIMATED GFR IS NOT APPLICABLE FOR DIALYSIS PATIENTS. [id number] 07:28:00 Test Item Value Reference Range Comments PHOSPHORUS (BEAKER) (test eirb=097) 2.4 mg/dL 2.3-4.7 [id number] 07:28:00 Test Item Value Reference Range Comments MAGNESIUM (BEAKER) (test qpod=969) 1.8 mg/dL 1.6-2.6 HEPATIC FUNCTION [id number] 07:28:00 Test Item Value Reference Range Comments TOTAL PROTEIN (BEAKER) (test nlfo=103) 5.7 gm/dL 6.0-8.3 ALBUMIN (BEAKER) (test hztf=3825) 2.5 g/dL 3.5-5.0 BILIRUBIN TOTAL (BEAKER) (test vecf=495) 1.7 mg/dL 0.2-1.2 BILIRUBIN DIRECT (BEAKER) (test kiqi=357) 1.3 mg/dL 0.1-0.5 ALKALINE PHOSPHATASE (BEAKER) (test wycc=227) 411 U/L 40-150 AST (SGOT) (BEAKER) (test hamk=019) 173 U/L 5-34 ALT (SGPT) (BEAKER) (test krod=521) 53 U/L 6-55 [id number] 07:28:00 Test Item Value Reference Range Comments LIPASE (BEAKER) (test couc=125) 231 U/L 8-78 CBC W/PLT COUNT & AUTO [id number] 07:10:00 Test Item Value Reference Range Comments WHITE BLOOD CELL COUNT (BEAKER) (test tbkn=080) 4.5 K/ L 3.5-10.5 RED BLOOD CELL COUNT (BEAKER) (test dwot=798) 2.76 M/ L 4.63-6.08 HEMOGLOBIN (BEAKER) (test vueo=306) 9.2 GM/DL 13.7-17.5 HEMATOCRIT (BEAKER) (test dyli=857) 29.2 % 40.1-51.0 MEAN CORPUSCULAR VOLUME (BEAKER) (test mcqg=574) 105.8 fL 79.0-92.2 MEAN CORPUSCULAR HEMOGLOBIN (BEAKER) (test 33.3 pg 25.7-32.2 mlyb=169) MEAN CORPUSCULAR HEMOGLOBIN CONC (BEAKER) (test 31.5 GM/DL 32.3-36.5 szff=284) RED CELL DISTRIBUTION WIDTH (BEAKER) (test 21.9 % 11.6-14.4 eqph=298) PLATELET COUNT (BEAKER) (test oktr=267) 150 K/CU MM 150-450 MEAN PLATELET VOLUME (BEAKER) (test eeab=731) 10.5 fL 9.4-12.4 NUCLEATED RED BLOOD CELLS (BEAKER) (test 0 /100 WBC 0-0 ankj=343) NEUTROPHILS RELATIVE PERCENT (BEAKER) (test 65 % zugu=119) LYMPHOCYTES RELATIVE PERCENT (BEAKER) (test 17 % pxrk=119) MONOCYTES RELATIVE PERCENT (BEAKER) (test 13 % pcmp=571) EOSINOPHILS RELATIVE PERCENT (BEAKER) (test 2 % tzrc=220) BASOPHILS RELATIVE PERCENT (BEAKER) (test 1 % rctm=973) NEUTROPHILS ABSOLUTE COUNT (BEAKER) (test 2.91 K/ L 1.78-5.38 yugx=661) LYMPHOCYTES ABSOLUTE COUNT (BEAKER) (test 0.78 K/ L 1.32-3.57 brzt=401) MONOCYTES ABSOLUTE COUNT (BEAKER) (test 0.59 K/ L 0.30-0.82 pxei=774) EOSINOPHILS ABSOLUTE COUNT (BEAKER) (test 0.11 K/ L 0.04-0.54 gfpg=716) BASOPHILS ABSOLUTE COUNT (BEAKER) (test 0.05 K/ L 0.01-0.08 omoc=169) IMMATURE GRANULOCYTES-RELATIVE PERCENT (BEAKER) 2 % 0-1 (test wiux=6309) COMPREHENSIVE METABOLIC [id number] 04:23:00 Test Item Value Reference Range Comments TOTAL PROTEIN (BEAKER) 5.5 gm/dL 6.0-8.3 (test yewc=934) ALBUMIN (BEAKER) (test 2.5 g/dL 3.5-5.0 wqsb=7285) ALKALINE PHOSPHATASE 453 U/L 40-150 (BEAKER) (test rgqw=377) BILIRUBIN TOTAL (BEAKER) 2.0 mg/dL 0.2-1.2 (test tcmw=053) SODIUM (BEAKER) (test 138 meq/L 136-145 qjwm=134) POTASSIUM (BEAKER) (test 3.2 meq/L 3.5-5.1 clrs=500) CHLORIDE (BEAKER) (test 104 meq/L 98-107 cvla=940) CO2 (BEAKER) (test 26 meq/L 22-29 zrqx=782) BLOOD UREA NITROGEN 3 mg/dL 7-21 (BEAKER) (test irtr=780) CREATININE (BEAKER) (test 0.51 mg/dL 0.57-1.25 kslf=415) GLUCOSE RANDOM (BEAKER) 104 mg/dL 70-105 (test aqge=308) CALCIUM (BEAKER) (test 7.0 mg/dL 8.4-10.2 mgax=305) AST (SGOT) (BEAKER) (test 166 U/L 5-34 uvkm=270) ALT (SGPT) (BEAKER) (test 52 U/L 6-55 nmbn=078) EGFR (BEAKER) (test 188 mL/min/1.73 sq ESTIMATED GFR IS NOT vlaq=4160) m ACCURATE CREATININE CLEARANCE IN PREDICTING GLOMERULAR FILTRATION RATE. ESTIMATED GFR IS NOT APPLICABLE FOR DIALYSIS PATIENTS. [id number] 04:21:00 Test Item Value Reference Range Comments PHOSPHORUS (BEAKER) (test txix=476) 2.0 mg/dL 2.3-4.7 [id number] 04:21:00 Test Item Value Reference Range Comments MAGNESIUM (BEAKER) (test kzxj=218) 1.5 mg/dL 1.6-2.6 HEPATIC FUNCTION [id number] 04:21:00 Test Item Value Reference Range Comments TOTAL PROTEIN (BEAKER) (test aotr=034) 5.5 gm/dL 6.0-8.3 ALBUMIN (BEAKER) (test zvlz=1119) 2.5 g/dL 3.5-5.0 BILIRUBIN TOTAL (BEAKER) (test yjwy=227) 2.0 mg/dL 0.2-1.2 BILIRUBIN DIRECT (BEAKER) (test xads=279) 1.5 mg/dL 0.1-0.5 ALKALINE PHOSPHATASE (BEAKER) (test zjev=117) 453 U/L 40-150 AST (SGOT) (BEAKER) (test pdij=092) 166 U/L 5-34 ALT (SGPT) (BEAKER) (test civd=924) 52 U/L 6-55 [id number] 04:21:00 Test Item Value Reference Range Comments LIPASE (BEAKER) (test vibm=737) 283 U/L 8-78 CBC W/PLT COUNT & AUTO [id number] 04:19:00 Test Item Value Reference Range Comments WHITE BLOOD CELL COUNT (BEAKER) (test egqu=871) 4.6 K/ L 3.5-10.5 RED BLOOD CELL COUNT (BEAKER) (test ztcy=454) 2.82 M/ L 4.63-6.08 HEMOGLOBIN (BEAKER) (test gkqs=512) 9.4 GM/DL 13.7-17.5 HEMATOCRIT (BEAKER) (test fcjs=189) 28.9 % 40.1-51.0 MEAN CORPUSCULAR VOLUME (BEAKER) (test kkho=269) 102.5 fL 79.0-92.2 MEAN CORPUSCULAR HEMOGLOBIN (BEAKER) (test 33.3 pg 25.7-32.2 paou=244) MEAN CORPUSCULAR HEMOGLOBIN CONC (BEAKER) (test 32.5 GM/DL 32.3-36.5 nlpx=636) RED CELL DISTRIBUTION WIDTH (BEAKER) (test 21.8 % 11.6-14.4 lpet=275) PLATELET COUNT (BEAKER) (test hpot=507) 141 K/CU MM 150-450 MEAN PLATELET VOLUME (BEAKER) (test jpxx=531) 9.5 fL 9.4-12.4 NUCLEATED RED BLOOD CELLS (BEAKER) (test 0 /100 WBC 0-0 auhs=714) NEUTROPHILS RELATIVE PERCENT (BEAKER) (test 63 % sklc=811) LYMPHOCYTES RELATIVE PERCENT (BEAKER) (test 22 % kvdl=226) MONOCYTES RELATIVE PERCENT (BEAKER) (test 10 % ruay=033) EOSINOPHILS RELATIVE PERCENT (BEAKER) (test 3 % rtnw=495) BASOPHILS RELATIVE PERCENT (BEAKER) (test 1 % hpbr=799) NEUTROPHILS ABSOLUTE COUNT (BEAKER) (test 2.86 K/ L 1.78-5.38 tdnc=024) LYMPHOCYTES ABSOLUTE COUNT (BEAKER) (test 1.02 K/ L 1.32-3.57 nvzq=657) MONOCYTES ABSOLUTE COUNT (BEAKER) (test 0.44 K/ L 0.30-0.82 dudb=374) EOSINOPHILS ABSOLUTE COUNT (BEAKER) (test 0.12 K/ L 0.04-0.54 zbxx=153) BASOPHILS ABSOLUTE COUNT (BEAKER) (test 0.05 K/ L 0.01-0.08 zdba=701) IMMATURE GRANULOCYTES-RELATIVE PERCENT (BEAKER) 2 % 0-1 (test fgiq=8799) HEMOGLOBIN AND [id number] 03:57:00 Test Item Value Reference Range Comments HEMOGLOBIN (BEAKER) (test crho=668) 9.4 GM/DL 13.7-17.5 HEMATOCRIT (BEAKER) (test hygu=052) 28.9 % 40.1-51.0 HEMOGLOBIN AND [id number] 11:59:00 Test Item Value Reference Range Comments HEMOGLOBIN (BEAKER) (test fbmm=806) 8.4 GM/DL 13.7-17.5 HEMATOCRIT (BEAKER) (test lzrg=643) 24.7 % 40.1-51.0 [id number] 09:15:00 Test Item Value Reference Range Comments LIPASE (BEAKER) (test mlra=172) 214 U/L 8-78 HEPATIC FUNCTION [id number] 06:09:00 Test Item Value Reference Range Comments TOTAL PROTEIN (BEAKER) (test poww=680) 5.1 gm/dL 6.0-8.3 ALBUMIN (BEAKER) (test ifue=6179) 2.4 g/dL 3.5-5.0 BILIRUBIN TOTAL (BEAKER) (test qfys=032) 2.0 mg/dL 0.2-1.2 BILIRUBIN DIRECT (BEAKER) (test kyeu=624) 1.4 mg/dL 0.1-0.5 ALKALINE PHOSPHATASE (BEAKER) (test bobd=962) 418 U/L 40-150 AST (SGOT) (BEAKER) (test ycjz=868) 147 U/L 5-34 ALT (SGPT) (BEAKER) (test qklu=284) 51 U/L 6-55 CBC (HEMOGRAM ONLY)[id number] 05:04:00 Test Item Value Reference Range Comments WHITE BLOOD CELL COUNT (BEAKER) (test zbmv=281) 4.8 K/ L 3.5-10.5 RED BLOOD CELL COUNT (BEAKER) (test lxby=720) 2.41 M/ L 4.63-6.08 HEMOGLOBIN (BEAKER) (test bqkp=103) 8.1 GM/DL 13.7-17.5 HEMATOCRIT (BEAKER) (test jyha=137) 24.1 % 40.1-51.0 MEAN CORPUSCULAR VOLUME (BEAKER) (test dtmf=050) 100.0 fL 79.0-92.2 MEAN CORPUSCULAR HEMOGLOBIN (BEAKER) (test 33.6 pg 25.7-32.2 ypau=207) MEAN CORPUSCULAR HEMOGLOBIN CONC (BEAKER) (test 33.6 GM/DL 32.3-36.5 fnag=504) RED CELL DISTRIBUTION WIDTH (BEAKER) (test 22.4 % 11.6-14.4 ouis=136) PLATELET COUNT (BEAKER) (test qpxo=046) 135 K/CU MM 150-450 MEAN PLATELET VOLUME (BEAKER) (test idaz=640) 10.0 fL 9.4-12.4 NUCLEATED RED BLOOD CELLS (BEAKER) (test 1 /100 WBC 0-0 nmal=009) BASIC METABOLIC [id number] 02:50:00 Test Item Value Reference Range Comments SODIUM (BEAKER) (test 137 meq/L 136-145 onde=361) POTASSIUM (BEAKER) (test 3.1 meq/L 3.5-5.1 cfbo=043) CHLORIDE (BEAKER) (test 104 meq/L 98-107 nuvy=123) CO2 (BEAKER) (test 24 meq/L 22-29 lrto=010) BLOOD UREA NITROGEN 3 mg/dL 7-21 (BEAKER) (test sagb=307) CREATININE (BEAKER) (test 0.50 mg/dL 0.57-1.25 jadq=172) GLUCOSE RANDOM (BEAKER) 124 mg/dL 70-105 (test fcvv=317) CALCIUM (BEAKER) (test 6.5 mg/dL 8.4-10.2 nsyu=448) EGFR (BEAKER) (test 193 mL/min/1.73 sq m ESTIMATED GFR IS NOT gaew=8479) ACCURATE CREATININE CLEARANCE IN PREDICTING GLOMERULAR FILTRATION RATE. ESTIMATED GFR IS NOT APPLICABLE FOR DIALYSIS PATIENTS. [id number] 02:14:00 Test Item Value Reference Range Comments PHOSPHORUS (BEAKER) (test qsfh=737) 2.6 mg/dL 2.3-4.7 [id number] 02:14:00 Test Item Value Reference Range Comments MAGNESIUM (BEAKER) (test lsod=349) 1.9 mg/dL 1.6-2.6 HEMOGLOBIN AND [id number] 01:13:00 Test Item Value Reference Range Comments HEMOGLOBIN (BEAKER) (test mdcg=244) 8.1 GM/DL 13.7-17.5 HEMATOCRIT (BEAKER) (test lays=401) 23.8 % 40.1-51.0 POCT-GLUCOSE [id number] 20:56:00 Test Item Value Reference Range Comments POC-GLUCOSE METER (BEAKER) 105 mg/dL 70-110 TESTED AT [facility] [address] [facility] (test vpyf=4029) [facility] [address] COMPREHENSIVE METABOLIC [id number] 14:51:00 Test Item Value Reference Range Comments TOTAL PROTEIN (BEAKER) 6.0 gm/dL 6.0-8.3 (test fcvc=067) ALBUMIN (BEAKER) (test 2.8 g/dL 3.5-5.0 pmly=3995) ALKALINE PHOSPHATASE 489 U/L 40-150 (BEAKER) (test bozq=310) BILIRUBIN TOTAL (BEAKER) 2.7 mg/dL 0.2-1.2 (test gfkx=183) SODIUM (BEAKER) (test 141 meq/L 136-145 wzol=036) POTASSIUM (BEAKER) (test 2.6 meq/L 3.5-5.1 ruxq=251) CHLORIDE (BEAKER) (test 103 meq/L 98-107 sbgr=581) CO2 (BEAKER) (test 28 meq/L 22-29 bpcg=729) BLOOD UREA NITROGEN 5 mg/dL 7-21 (BEAKER) (test xulm=928) CREATININE (BEAKER) (test 0.54 mg/dL 0.57-1.25 mnyq=263) GLUCOSE RANDOM (BEAKER) 88 mg/dL 70-105 (test vbmt=868) CALCIUM (BEAKER) (test 7.1 mg/dL 8.4-10.2 zavs=649) AST (SGOT) (BEAKER) (test 168 U/L 5-34 gwcl=797) ALT (SGPT) (BEAKER) (test 61 U/L 6-55 ftdu=701) EGFR (BEAKER) (test 176 mL/min/1.73 sq ESTIMATED GFR IS NOT qdqq=8432) m ACCURATE CREATININE CLEARANCE IN PREDICTING GLOMERULAR FILTRATION RATE. ESTIMATED GFR IS NOT APPLICABLE FOR DIALYSIS PATIENTS. Specimen slightly [id number] 14:51:00 Test Item Value Reference Range Comments PHOSPHORUS (BEAKER) (test utux=594) 0.9 mg/dL 2.3-4.7 [id number] 14:41:00 Test Item Value Reference Range Comments MAGNESIUM (BEAKER) (test gzam=896) 1.3 mg/dL 1.6-2.6 [id number] 14:41:00 Test Item Value Reference Range Comments AMYLASE (BEAKER) (test ghdp=574) 160 U/L 25-125 Specimen slightly ictericLACTATE DEHYDROGENASE (LDH)2019-02-12 14:41:00 Test Item Value Reference Range Comments LACTATE DEHYDROGENASE (BEAKER) (test vtvn=093) 572 U/L 125-220 [id number] 14:41:00 Test Item Value Reference Range Comments LIPASE (BEAKER) (test ymem=820) 562 U/L 8-78 Specimen slightly [id number] 14:39:00 Test Item Value Reference Range Comments ETHANOL (BEAKER) (test vpou=780) < mg/dL <=10 [id number] 14:27:00 Test Item Value Reference Range Comments D-DIMER QUANTITATIVE (BEAKER) (test exos=364) 4.23 MG/L FEU <0.50 Intended Use: The [...] of thrombosis is within 95-100% range.LACTIC ACID, [id number] 14:25:00 Test Item Value Reference Range Comments LACTATE BLOOD VENOUS (2) (BEAKER) (test 1.5 mmol/L 0.5-2.2 mxke=7526) [id number] 14:21:00 Test Item Value Reference Range Comments AMMONIA (BEAKER) (test hfum=529) 50 mol/L 18-72 [id number] 14:17:00 Test Item Value Reference Range Comments PROTIME (BEAKER) (test qanx=686) 17.8 seconds 11.9-14.2 INR (BEAKER) (test nksj=487) 1.6 <=5.9 PARTIAL THROMBOPLASTIN TIME (BEAKER) (test 34.9 seconds 22.5-36.0 bacq=696) Effective 12/11/2018: PT Reference Range ChangeNew: 11.9-14.2 Previous: 11.7- 14.7RECOMMENDED COUMADIN/WARFARIN INR THERAPY RANGESSTANDARD DOSE: 2.0-3.0 Includes: PROPHYLAXIS for venous thrombosis, systemic embolization; TREATMENT for venous thrombosis and/or pulmonary embolus.HIGH RISK: Target INR is2.5-3.5 for patients wiht mechanical heart valves.[id number] 14:17:00 Test Item Value Reference Range Comments FIBRINOGEN LEVEL (BEAKER) (test ilvj=450) 304 mg/dl 225-434 CBC (HEMOGRAM ONLY)2019-02-12 14:13:00 Test Item Value Reference Range Comments WHITE BLOOD CELL COUNT 5.0 K/ L 3.5-10.5 (BEAKER) (test tyld=125) RED BLOOD CELL COUNT (BEAKER) 2.64 M/ L 4.63-6.08 (test peyi=177) HEMOGLOBIN (BEAKER) (test 9.0 GM/DL 13.7-17.5 xptb=946) HEMATOCRIT (BEAKER) (test 27.0 % 40.1-51.0 yoyz=177) MEAN CORPUSCULAR VOLUME 102.3 fL 79.0-92.2 (BEAKER) (test rsld=336) MEAN CORPUSCULAR HEMOGLOBIN 34.1 pg 25.7-32.2 (BEAKER) (test ennl=618) MEAN CORPUSCULAR HEMOGLOBIN 33.3 GM/DL 32.3-36.5 CONC (BEAKER) (test fswa=814) RED CELL DISTRIBUTION WIDTH % 11.6-14.4 Unable to report due to (BEAKER) (test cxzs=625) abnormal Platelet population distribution. PLATELET COUNT (BEAKER) (test 146 K/CU MM 150-450 xgwz=967) MEAN PLATELET VOLUME (BEAKER) 10.0 fL 9.4-12.4 (test rqgu=527) NUCLEATED RED BLOOD CELLS 1 /100 WBC 0-0 (BEAKER) (test wcyn=693) CBC W/PLT COUNT & AUTO [id number] 05:36:00 Test Item Value Reference Range Comments WHITE BLOOD CELL COUNT (BEAKER) (test fioz=918) 3.1 K/ L 3.5-10.5 RED BLOOD CELL COUNT (BEAKER) (test dilu=222) 3.39 M/ L 4.63-6.08 HEMOGLOBIN (BEAKER) (test vwur=826) 11.5 GM/DL 13.7-17.5 HEMATOCRIT (BEAKER) (test jkxd=173) 33.7 % 40.1-51.0 MEAN CORPUSCULAR VOLUME (BEAKER) (test kbku=253) 99.4 fL 79.0-92.2 MEAN CORPUSCULAR HEMOGLOBIN (BEAKER) (test 33.9 pg 25.7-32.2 zoyu=443) MEAN CORPUSCULAR HEMOGLOBIN CONC (BEAKER) (test 34.1 GM/DL 32.3-36.5 wglg=206) RED CELL DISTRIBUTION WIDTH (BEAKER) (test 12.8 % 11.6-14.4 ouoh=732) PLATELET COUNT (BEAKER) (test taki=575) 130 K/CU MM 150-450 MEAN PLATELET VOLUME (BEAKER) (test irle=115) 10.4 fL 9.4-12.4 NUCLEATED RED BLOOD CELLS (BEAKER) (test 0 /100 WBC 0-0 mbfp=727) NEUTROPHILS RELATIVE PERCENT (BEAKER) (test 51 % befn=866) LYMPHOCYTES RELATIVE PERCENT (BEAKER) (test 31 % qwzz=911) MONOCYTES RELATIVE PERCENT (BEAKER) (test 12 % xxjs=073) EOSINOPHILS RELATIVE PERCENT (BEAKER) (test 4 % cpku=313) BASOPHILS RELATIVE PERCENT (BEAKER) (test 1 % vugo=837) NEUTROPHILS ABSOLUTE COUNT (BEAKER) (test 1.61 K/ L 1.78-5.38 aggy=904) LYMPHOCYTES ABSOLUTE COUNT (BEAKER) (test 0.98 K/ L 1.32-3.57 tkyt=402) MONOCYTES ABSOLUTE COUNT (BEAKER) (test 0.38 K/ L 0.30-0.82 qqlb=790) EOSINOPHILS ABSOLUTE COUNT (BEAKER) (test 0.11 K/ L 0.04-0.54 wmpr=505) BASOPHILS ABSOLUTE COUNT (BEAKER) (test 0.04 K/ L 0.01-0.08 nooz=254) IMMATURE GRANULOCYTES-RELATIVE PERCENT (BEAKER) 1 % 0-1 (test rtsh=5063) MR, ABDOMEN, [id number] 13:31:00FINAL REPORT MRCP, MRI of abdomen without [...] MDReport Verified Date/Time: 12/12/2018 13:31:00 Reading Location: [facility] B1 C013Y CT Body Reading Room COMPREHENSIVE METABOLIC [id number] 09:56:00 Test Item Value Reference Range Comments TOTAL PROTEIN (BEAKER) 5.5 gm/dL 6.0-8.3 (test dotb=169) ALBUMIN (BEAKER) (test 3.1 g/dL 3.5-5.0 bmld=5867) ALKALINE PHOSPHATASE 116 U/L 40-150 (BEAKER) (test vbef=059) BILIRUBIN TOTAL (BEAKER) 1.9 mg/dL 0.2-1.2 (test slfq=246) SODIUM (BEAKER) (test 139 meq/L 136-145 ugwr=589) POTASSIUM (BEAKER) (test 3.0 meq/L 3.5-5.1 kdlf=983) CHLORIDE (BEAKER) (test 107 meq/L 98-107 kiaw=614) CO2 (BEAKER) (test 23 meq/L 22-29 rymj=692) BLOOD UREA NITROGEN 4 mg/dL 7-21 (BEAKER) (test ayuu=119) CREATININE (BEAKER) (test 0.56 mg/dL 0.57-1.25 milm=136) GLUCOSE RANDOM (BEAKER) 116 mg/dL 70-105 (test efvs=347) CALCIUM (BEAKER) (test 7.4 mg/dL 8.4-10.2 ilsb=073) AST (SGOT) (BEAKER) (test 297 U/L 5-34 yxgr=111) ALT (SGPT) (BEAKER) (test 173 U/L 6-55 nomj=090) EGFR (BEAKER) (test 169 mL/min/1.73 sq ESTIMATED GFR IS NOT kzog=6683) m ACCURATE CREATININE CLEARANCE IN PREDICTING GLOMERULAR FILTRATION RATE. ESTIMATED GFR IS NOT APPLICABLE FOR DIALYSIS PATIENTS. CBC W/PLT COUNT & AUTO [id number] 04:42:00 Test Item Value Reference Range Comments WHITE BLOOD CELL COUNT (BEAKER) (test igax=392) 3.1 K/ L 3.5-10.5 RED BLOOD CELL COUNT (BEAKER) (test klov=826) 3.09 M/ L 4.63-6.08 HEMOGLOBIN (BEAKER) (test qwlz=162) 10.7 GM/DL 13.7-17.5 HEMATOCRIT (BEAKER) (test lhjn=258) 30.5 % 40.1-51.0 MEAN CORPUSCULAR VOLUME (BEAKER) (test hvbp=376) 98.7 fL 79.0-92.2 MEAN CORPUSCULAR HEMOGLOBIN (BEAKER) (test 34.6 pg 25.7-32.2 vull=674) MEAN CORPUSCULAR HEMOGLOBIN CONC (BEAKER) (test 35.1 GM/DL 32.3-36.5 ckpy=279) RED CELL DISTRIBUTION WIDTH (BEAKER) (test 12.4 % 11.6-14.4 wsyh=999) PLATELET COUNT (BEAKER) (test mpoi=651) 99 K/CU MM 150-450 MEAN PLATELET VOLUME (BEAKER) (test xgcx=264) 11.0 fL 9.4-12.4 NUCLEATED RED BLOOD CELLS (BEAKER) (test 0 /100 WBC 0-0 xnmg=339) NEUTROPHILS RELATIVE PERCENT (BEAKER) (test 60 % kpvz=255) LYMPHOCYTES RELATIVE PERCENT (BEAKER) (test 26 % esco=222) MONOCYTES RELATIVE PERCENT (BEAKER) (test 11 % hynu=885) EOSINOPHILS RELATIVE PERCENT (BEAKER) (test 2 % ynnk=284) BASOPHILS RELATIVE PERCENT (BEAKER) (test 1 % exmf=253) NEUTROPHILS ABSOLUTE COUNT (BEAKER) (test 1.84 K/ L 1.78-5.38 dthn=075) LYMPHOCYTES ABSOLUTE COUNT (BEAKER) (test 0.81 K/ L 1.32-3.57 efxx=943) MONOCYTES ABSOLUTE COUNT (BEAKER) (test wrxo=618) 0.34 K/ L 0.30-0.82 EOSINOPHILS ABSOLUTE COUNT (BEAKER) (test 0.06 K/ L 0.04-0.54 nixx=708) BASOPHILS ABSOLUTE COUNT (BEAKER) (test hsmh=066) 0.03 K/ L 0.01-0.08 IMMATURE GRANULOCYTES-RELATIVE PERCENT (BEAKER) 0 % 0-1 (test ndcc=8616) FL, ESOPH, SWALLOW FUNCTION, WITH CINE OR [id number] 12:02:00Reason for exam:->pneumomediastinum, rule out esophageal perforationFINAL [...] Verified Date/Time: 12/11/2018 12:02: 17 Reading Location: [facility] C0X Ortho Consult Reading Room BASI METABOLIC [id number] 07:31:00 Test Item Value Reference Range Comments SODIUM (BEAKER) (test 139 meq/L 136-145 mxws=935) POTASSIUM (BEAKER) (test 3.4 meq/L 3.5-5.1 Specimen slightly akaj=814) hemolyzed CHLORIDE (BEAKER) (test 103 meq/L 98-107 rsrq=729) CO2 (BEAKER) (test 20 meq/L 22-29 vreg=133) BLOOD UREA NITROGEN 18 mg/dL 7-21 (BEAKER) (test obsv=124) CREATININE (BEAKER) (test 0.73 mg/dL 0.57-1.25 Specimen slightly ttja=378) hemolyzed GLUCOSE RANDOM (BEAKER) 67 mg/dL 70-105 (test ndzn=262) CALCIUM (BEAKER) (test 8.6 mg/dL 8.4-10.2 kpmh=046) EGFR (BEAKER) (test 125 mL/min/1.73 sq m ESTIMATED GFR IS NOT dhkv=0588) ACCURATE CREATININE CLEARANCE IN PREDICTING GLOMERULAR FILTRATION RATE. ESTIMATED GFR IS NOT APPLICABLE FOR DIALYSIS PATIENTS. CBC W/PLT COUNT & AUTO [id number] 07:12:00 Test Item Value Reference Range Comments WHITE BLOOD CELL COUNT (BEAKER) (test bvex=541) 4.6 K/ L 3.5-10.5 RED BLOOD CELL COUNT (BEAKER) (test juni=552) 3.19 M/ L 4.63-6.08 HEMOGLOBIN (BEAKER) (test dppq=463) 11.1 GM/DL 13.7-17.5 HEMATOCRIT (BEAKER) (test lrwv=992) 31.0 % 40.1-51.0 MEAN CORPUSCULAR VOLUME (BEAKER) (test tijw=810) 97.2 fL 79.0-92.2 MEAN CORPUSCULAR HEMOGLOBIN (BEAKER) (test 34.8 pg 25.7-32.2 zakv=671) MEAN CORPUSCULAR HEMOGLOBIN CONC (BEAKER) (test 35.8 GM/DL 32.3-36.5 qcxs=468) RED CELL DISTRIBUTION WIDTH (BEAKER) (test 13.0 % 11.6-14.4 jbjp=729) PLATELET COUNT (BEAKER) (test oidx=465) 103 K/CU MM 150-450 MEAN PLATELET VOLUME (BEAKER) (test ykwb=147) 11.0 fL 9.4-12.4 NUCLEATED RED BLOOD CELLS (BEAKER) (test 0 /100 WBC 0-0 iqqu=007) NEUTROPHILS RELATIVE PERCENT (BEAKER) (test 73 % iris=045) LYMPHOCYTES RELATIVE PERCENT (BEAKER) (test 16 % eoxr=592) MONOCYTES RELATIVE PERCENT (BEAKER) (test 9 % alpt=154) EOSINOPHILS RELATIVE PERCENT (BEAKER) (test 1 % wquz=759) BASOPHILS RELATIVE PERCENT (BEAKER) (test 0 % wkgl=171) NEUTROPHILS ABSOLUTE COUNT (BEAKER) (test 3.36 K/ L 1.78-5.38 tawm=600) LYMPHOCYTES ABSOLUTE COUNT (BEAKER) (test 0.75 K/ L 1.32-3.57 aunj=353) MONOCYTES ABSOLUTE COUNT (BEAKER) (test 0.41 K/ L 0.30-0.82 nlxt=668) EOSINOPHILS ABSOLUTE COUNT (BEAKER) (test 0.04 K/ L 0.04-0.54 rhuo=145) BASOPHILS ABSOLUTE COUNT (BEAKER) (test 0.02 K/ L 0.01-0.08 qqpe=671) IMMATURE GRANULOCYTES-RELATIVE PERCENT (BEAKER) 1 % 0-1 (test uimf=7503) RAD, CHEST, 1 VIEW, NON [id number] 20:13:00Reason for exam:-> pneumomediastinumShould this be performed [...] Verified Date /Time: 12/10/2018 20:13:39 Reading Location: [address] Reading Room [id number] 19:12:00 Test Item Value Reference Range Comments MAGNESIUM (BEAKER) (test 1.8 mg/dL 1.6-2.6 Specimen slightly hemolyzed xmnz=703) COMPREHENSIVE METABOLIC [id number] 19:12:00 Test Item Value Reference Range Comments TOTAL PROTEIN (BEAKER) 6.3 gm/dL 6.0-8.3 Specimen slightly (test snxa=207) hemolyzed ALBUMIN (BEAKER) (test 3.7 g/dL 3.5-5.0 Specimen slightly mrox=6538) hemolyzed ALKALINE PHOSPHATASE 129 U/L 40-150 (BEAKER) (test qbdd=633) BILIRUBIN TOTAL (BEAKER) 2.9 mg/dL 0.2-1.2 Specimen slightly (test yjio=534) hemolyzed SODIUM (BEAKER) (test 137 meq/L 136-145 grmp=926) POTASSIUM (BEAKER) (test 2.7 meq/L 3.5-5.1 Specimen slightly gfjt=498) hemolyzed CHLORIDE (BEAKER) (test 99 meq/L 98-107 qdyp=152) CO2 (BEAKER) (test 23 meq/L 22-29 nhkl=664) BLOOD UREA NITROGEN 22 mg/dL 7-21 (BEAKER) (test ubxd=404) CREATININE (BEAKER) (test 1.28 mg/dL 0.57-1.25 Specimen slightly ngpx=394) hemolyzed GLUCOSE RANDOM (BEAKER) 78 mg/dL 70-105 (test yxbp=690) CALCIUM (BEAKER) (test 8.5 mg/dL 8.4-10.2 vgxm=045) AST (SGOT) (BEAKER) (test 502 U/L 5-34 Specimen slightly kdof=180) hemolyzed ALT (SGPT) (BEAKER) (test 225 U/L 6-55 Specimen slightly wngj=903) hemolyzed EGFR (BEAKER) (test 65 mL/min/1.73 sq m ESTIMATED GFR IS NOT qxst=9446) ACCURATE CREATININE CLEARANCE IN PREDICTING GLOMERULAR FILTRATION RATE. ESTIMATED GFR IS NOT APPLICABLE FOR DIALYSIS PATIENTS. Specimen slightly ictericPROTHROMBIN [id number] 18:53:00 Test Item Value Reference Range Comments PROTIME (BEAKER) (test rmvl=879) 15.8 seconds 11.7-14.7 INR (BEAKER) (test cxdr=615) 1.3 <=5.9 RECOMMENDED COUMADIN/WARFARIN INR THERAPY RANGESSTANDARD DOSE: 2.0 - 3.0 Includes: PROPHYLAXIS forvenous thrombosis, systemic embolization; TREATMENT for venous thrombosis and/or pulmonary embolus.HIGH RISK: Target INR is 2.5-3.5 for patients with mechanical heart valves.CBC W/PLT COUNT & AUTO [id number] 18:49:00 Test Item Value Reference Range Comments WHITE BLOOD CELL COUNT (BEAKER) (test omch=451) 6.0 K/ L 3.5-10.5 RED BLOOD CELL COUNT (BEAKER) (test vgsu=945) 3.44 M/ L 4.63-6.08 HEMOGLOBIN (BEAKER) (test igxf=731) 11.6 GM/DL 13.7-17.5 HEMATOCRIT (BEAKER) (test mqqo=464) 34.1 % 40.1-51.0 MEAN CORPUSCULAR VOLUME (BEAKER) (test yumm=427) 99.1 fL 79.0-92.2 MEAN CORPUSCULAR HEMOGLOBIN (BEAKER) (test 33.7 pg 25.7-32.2 auem=588) MEAN CORPUSCULAR HEMOGLOBIN CONC (BEAKER) (test 34.0 GM/DL 32.3-36.5 uggy=341) RED CELL DISTRIBUTION WIDTH (BEAKER) (test 13.1 % 11.6-14.4 ckdo=515) PLATELET COUNT (BEAKER) (test tlbd=750) 109 K/CU MM 150-450 MEAN PLATELET VOLUME (BEAKER) (test qyzm=615) 11.0 fL 9.4-12.4 NUCLEATED RED BLOOD CELLS (BEAKER) (test 0 /100 WBC 0-0 uawl=740) NEUTROPHILS RELATIVE PERCENT (BEAKER) (test 81 % fvmu=464) LYMPHOCYTES RELATIVE PERCENT (BEAKER) (test 12 % nekq=389) MONOCYTES RELATIVE PERCENT (BEAKER) (test 7 % bumw=860) EOSINOPHILS RELATIVE PERCENT (BEAKER) (test 0 % fccc=863) BASOPHILS RELATIVE PERCENT (BEAKER) (test 0 % unga=325) NEUTROPHILS ABSOLUTE COUNT (BEAKER) (test 4.84 K/ L 1.78-5.38 wynm=280) LYMPHOCYTES ABSOLUTE COUNT (BEAKER) (test 0.72 K/ L 1.32-3.57 hakq=992) MONOCYTES ABSOLUTE COUNT (BEAKER) (test 0.41 K/ L 0.30-0.82 cvmy=451) EOSINOPHILS ABSOLUTE COUNT (BEAKER) (test 0.01 K/ L 0.04-0.54 tfam=619) BASOPHILS ABSOLUTE COUNT (BEAKER) (test 0.02 K/ L 0.01-0.08 xmgo=443) IMMATURE GRANULOCYTES-RELATIVE PERCENT (BEAKER) 0 % 0-1 (test jjca=9287) BLOOD [id number] 20:01:00 Test Item Value Reference Range Comments CULTURE (BEAKER) (test izxo=0644) No growth in 5 days BLOOD [id number] 20:01:00 Test Item Value Reference Range Comments CULTURE (BEAKER) (test qlsw=9717) No growth in 5 days RAD, CHEST, 1 VIEW, NON [id number] 13:13:00Reason for exam:->evalute for pneumoniaShould this be performed at the bedside?->YesAddendum BeginsREPORT STATUS:A Addendum:Clinical diagnosis alcohol withdrawalsyndrome, electrolyte disturbances, elevated liver function tests, pneumonia, Signed: Marilu Sharpe MDReport Verified Date/Time: 11/01/2018 13:13: 23 Reading Location: [address] Consult Reading RoomAddendum EndsFINAL REPORT Chest [...] MDReport Verified Date/Time: 10/28 15:36:38 Reading Location: [facility] C0[facility] Consult Reading Room U/S, ABDOMINAL, WITH [id number] 10:43:00Reason for exam:->evaluate for portal hypertension, cirrhosis, [...] MDReport Verified Date/Time: 10/31/2018 10:43:58 Reading Location: [address] Ultrasound Reading Room COMPREHENSIVE METABOLIC [id number] 06:57:00 Test Item Value Reference Range Comments TOTAL PROTEIN (BEAKER) 6.3 gm/dL 6.0-8.3 (test ujkz=457) ALBUMIN (BEAKER) (test 3.4 g/dL 3.5-5.0 wvyk=8400) ALKALINE PHOSPHATASE 165 U/L 40-150 (BEAKER) (test rwlg=772) BILIRUBIN TOTAL (BEAKER) 0.6 mg/dL 0.2-1.2 (test upuj=829) SODIUM (BEAKER) (test 140 meq/L 136-145 itky=988) POTASSIUM (BEAKER) (test 3.6 meq/L 3.5-5.1 wknh=319) CHLORIDE (BEAKER) (test 102 meq/L 98-107 dxdt=054) CO2 (BEAKER) (test 29 meq/L 22-29 atnn=036) BLOOD UREA NITROGEN 3 mg/dL 7-21 (BEAKER) (test wilg=972) CREATININE (BEAKER) (test 0.55 mg/dL 0.57-1.25 egyj=659) GLUCOSE RANDOM (BEAKER) 89 mg/dL 70-105 (test zwvq=026) CALCIUM (BEAKER) (test 9.2 mg/dL 8.4-10.2 otya=238) AST (SGOT) (BEAKER) (test 184 U/L 5-34 dztd=369) ALT (SGPT) (BEAKER) (test 156 U/L 6-55 vtws=081) EGFR (BEAKER) (test 173 mL/min/1.73 sq ESTIMATED GFR IS NOT zjfn=7648) m ACCURATE CREATININE CLEARANCE IN PREDICTING GLOMERULAR FILTRATION RATE. ESTIMATED GFR IS NOT APPLICABLE FOR DIALYSIS PATIENTS. HEMOGLOBIN [id number] 09:30:00 Test Item Value Reference Range Comments HEMOGLOBIN A1C (BEAKER) (test gnkf=335) 4.9 % 4.3-6.1 COMPREHENSIVE METABOLIC [id number] 05:17:00 Test Item Value Reference Range Comments TOTAL PROTEIN (BEAKER) 6.5 gm/dL 6.0-8.3 (test ixrk=112) ALBUMIN (BEAKER) (test 3.6 g/dL 3.5-5.0 uhvw=9722) ALKALINE PHOSPHATASE 170 U/L 40-150 (BEAKER) (test omec=030) BILIRUBIN TOTAL (BEAKER) 0.9 mg/dL 0.2-1.2 (test yzwn=865) SODIUM (BEAKER) (test 141 meq/L 136-145 yshg=624) POTASSIUM (BEAKER) (test 3.5 meq/L 3.5-5.1 gwuh=596) CHLORIDE (BEAKER) (test 104 meq/L 98-107 gflb=256) CO2 (BEAKER) (test 26 meq/L 22-29 lceb=150) BLOOD UREA NITROGEN 4 mg/dL 7-21 (BEAKER) (test lgae=472) CREATININE (BEAKER) (test 0.55 mg/dL 0.57-1.25 ywfq=176) GLUCOSE RANDOM (BEAKER) 89 mg/dL 70-105 (test qwgt=985) CALCIUM (BEAKER) (test 9.3 mg/dL 8.4-10.2 jwzq=708) AST (SGOT) (BEAKER) (test 167 U/L 5-34 eejz=049) ALT (SGPT) (BEAKER) (test 156 U/L 6-55 qdxm=746) EGFR (BEAKER) (test 173 mL/min/1.73 sq ESTIMATED GFR IS NOT iimf=5762) m ACCURATE CREATININE CLEARANCE IN PREDICTING GLOMERULAR FILTRATION RATE. ESTIMATED GFR IS NOT APPLICABLE FOR DIALYSIS PATIENTS. CBC W/PLT COUNT & AUTO [id number] 04:53:00 Test Item Value Reference Range Comments WHITE BLOOD CELL COUNT (BEAKER) (test inix=159) 3.4 K/ L 3.5-10.5 RED BLOOD CELL COUNT (BEAKER) (test laea=636) 3.45 M/ L 4.63-6.08 HEMOGLOBIN (BEAKER) (test lsby=760) 11.8 GM/DL 13.7-17.5 HEMATOCRIT (BEAKER) (test dzdj=666) 34.4 % 40.1-51.0 MEAN CORPUSCULAR VOLUME (BEAKER) (test awcp=830) 99.7 fL 79.0-92.2 MEAN CORPUSCULAR HEMOGLOBIN (BEAKER) (test 34.2 pg 25.7-32.2 quur=631) MEAN CORPUSCULAR HEMOGLOBIN CONC (BEAKER) (test 34.3 GM/DL 32.3-36.5 ziqu=000) RED CELL DISTRIBUTION WIDTH (BEAKER) (test 12.2 % 11.6-14.4 fxyc=571) PLATELET COUNT (BEAKER) (test clyt=861) 175 K/CU MM 150-450 MEAN PLATELET VOLUME (BEAKER) (test yomq=359) 10.3 fL 9.4-12.4 NUCLEATED RED BLOOD CELLS (BEAKER) (test 0 /100 WBC 0-0 xirt=316) NEUTROPHILS RELATIVE PERCENT (BEAKER) (test 55 % wauv=885) LYMPHOCYTES RELATIVE PERCENT (BEAKER) (test 30 % xdrz=965) MONOCYTES RELATIVE PERCENT (BEAKER) (test 11 % nwmh=893) EOSINOPHILS RELATIVE PERCENT (BEAKER) (test 3 % pqpr=875) BASOPHILS RELATIVE PERCENT (BEAKER) (test 1 % orkw=467) NEUTROPHILS ABSOLUTE COUNT (BEAKER) (test 1.89 K/ L 1.78-5.38 ddzl=556) LYMPHOCYTES ABSOLUTE COUNT (BEAKER) (test 1.03 K/ L 1.32-3.57 xfgz=253) MONOCYTES ABSOLUTE COUNT (BEAKER) (test 0.39 K/ L 0.30-0.82 udnf=521) EOSINOPHILS ABSOLUTE COUNT (BEAKER) (test 0.09 K/ L 0.04-0.54 bhhe=485) BASOPHILS ABSOLUTE COUNT (BEAKER) (test 0.03 K/ L 0.01-0.08 ikeh=453) IMMATURE GRANULOCYTES-RELATIVE PERCENT (BEAKER) 0 % 0-1 (test dikd=9053) LIPID [id number] 17:30:00 Test Item Value Reference Range Comments TRIGLYCERIDES (BEAKER) (test emtl=388) 90 mg/dL CHOLESTEROL (BEAKER) (test wqer=269) 140 mg/dL HDL CHOLESTEROL (BEAKER) (test hkon=710) 37 mg/dL LDL CHOLESTEROL CALCULATED (BEAKER) (test 85 mg/dL wziu=757) Triglyceride Reference Range: Low Risk <150 Borderline 150- 199 High Risk 200-499 Very High Risk >=500Cholesterol Reference Range: Low Risk <200 Borderline 200-239 High Risk > 240HDL Cholesterol Reference Range: Low Risk >=60 High Risk <40LDL Cholesterol Reference Range: Optimal <100 Near Optimal 100-129 Borderline 130-159 High 160-189 Very High >=190HEPATITIS C PCR, [id number] 14:57:00 Test Item Value Reference Range Comments HCV RESULT COMPONENT (BEAKER) HCV RNA not detected HCV RNA not detected (test nmvq=3559) This test uses a Real-Time Polymerase Chain Reaction (RT-PCR) methodology and was performed using [employer] Ampliprep/MARIANO TaqMan HCV test kit version 2.0 ( [employer]).Reportable range for this assay is 15 - 100,000, 000 IU per mL (1.18 - 8.00 Log IU/mL).RAD, ABDOMEN/KUB, 1 VIEW [id number] 14: 17:00Reason for exam:->abd distensionFINAL REPORT TECHNIQUE: Supine radiographs of the abdomen dated 10/29/2018. HISTORY: Abdominal distention. COMPARISON: None IMPRESSION:No air-filled, dilated loops of bowel to suggest obstruction. No free intraperitoneal air. No abnormal soft tissue mass or calcification. Signed:Nancy Concepcioneport Verified Date/ Time: 10/29/2018 14:17:17 Reading Location: [facility] Radiology Reading Room [id number] 13:28:00 Test Item Value Reference Range Comments RPR SCREEN (BEAKER) (test nqxm=981) Nonreactive Nonreactive [id number] 05:12:00 Test Item Value Reference Range Comments PHOSPHORUS (BEAKER) (test vbta=923) 2.5 mg/dL 2.3-4.7 COMPREHENSIVE METABOLIC [id number] 05:12:00 Test Item Value Reference Range Comments TOTAL PROTEIN (BEAKER) 6.9 gm/dL 6.0-8.3 (test fafy=916) ALBUMIN (BEAKER) (test 3.9 g/dL 3.5-5.0 sebz=5197) ALKALINE PHOSPHATASE 200 U/L 40-150 (BEAKER) (test zaqd=937) BILIRUBIN TOTAL (BEAKER) 1.2 mg/dL 0.2-1.2 (test laoz=378) SODIUM (BEAKER) (test 137 meq/L 136-145 apba=818) POTASSIUM (BEAKER) (test 3.3 meq/L 3.5-5.1 acgw=465) CHLORIDE (BEAKER) (test 97 meq/L 98-107 kvnn=004) CO2 (BEAKER) (test 27 meq/L 22-29 vnkr=900) BLOOD UREA NITROGEN 3 mg/dL 7-21 (BEAKER) (test geib=043) CREATININE (BEAKER) (test 0.57 mg/dL 0.57-1.25 elxb=237) GLUCOSE RANDOM (BEAKER) 108 mg/dL 70-105 (test jsqd=403) CALCIUM (BEAKER) (test 9.4 mg/dL 8.4-10.2 tsqg=675) AST (SGOT) (BEAKER) (test 263 U/L 5-34 pstf=285) ALT (SGPT) (BEAKER) (test 215 U/L 6-55 ckrv=175) EGFR (BEAKER) (test 166 mL/min/1.73 sq ESTIMATED GFR IS NOT sxkk=0008) m ACCURATE CREATININE CLEARANCE IN PREDICTING GLOMERULAR FILTRATION RATE. ESTIMATED GFR IS NOT APPLICABLE FOR DIALYSIS PATIENTS. PROTHROMBIN [id number] 04:53:00 Test Item Value Reference Range Comments PROTIME (BEAKER) (test dpds=571) 16.0 seconds 11.7-14.7 INR (BEAKER) (test tvve=871) 1.3 <=5.9 RECOMMENDED COUMADIN/WARFARIN INR THERAPY RANGESSTANDARD DOSE: 2.0 - 3.0 Includes: PROPHYLAXIS forvenous thrombosis, systemic embolization; TREATMENT for venous thrombosis and/or pulmonary embolus.HIGH RISK: Target INR is 2.5-3.5 for patients with mechanical heart valves.URINALYSIS W/ REFLEX URINE [id number] 18:43:00 Test Item Value Reference Range Comments COLOR (BEAKER) (test expy=033) Yellow CLARITY (BEAKER) (test laao=037) Clear SPECIFIC GRAVITY UA (BEAKER) (test pazh=407) 1.007 1.001-1.035 PH UA (BEAKER) (test okuf=184) 7.5 5.0-8.0 PROTEIN UA (BEAKER) (test ahiv=285) 20 mg/dL Negative GLUCOSE UA (BEAKER) (test gkan=895) Negative Negative KETONES UA (BEAKER) (test kkhm=533) 20 mg/dL Negative BILIRUBIN UA (BEAKER) (test zblj=208) Negative Negative BLOOD UA (BEAKER) (test crmb=509) Trace Negative NITRITE UA (BEAKER) (test ctlq=714) Negative Negative LEUKOCYTE ESTERASE UA (BEAKER) (test duus=111) Negative Negative UROBILINOGEN UA (BEAKER) (test ulbj=979) 2.0 mg/dL 0.2-1.0 RBC UA (BEAKER) (test nffa=015) 3 /HPF WBC UA (BEAKER) (test mgtb=520) < /HPF MUCUS (BEAKER) (test eywa=0471) Rare SOURCE(BEAKER) (test qwbz=3433) VITAMIN B12 AND [id number] 15:08:00 Test Item Value Reference Range Comments VITAMIN B12 (BEAKER) (test cbjo=072) 1678 pg/mL 213-816 FOLATE (BEAKER) (test xnej=981) 19.4 ng/mL >=7.0 [id number] 14:48:00 Test Item Value Reference Range Comments FERRITIN (BEAKER) (test yiuh=806) 1698 ng/mL 5-275 IRON, TIBC, % SAT. (WITHOUT FERRITIN)[id number] 13:26:00 Test Item Value Reference Range Comments IRON (BEAKER) (test juyf=313) 44.0 ug/dL 40.0-160.0 TOTAL IRON BINDING CAPACITY (BEAKER) (test 186 ug/dL 250-450 xvwf=457) IRON % SATURATION (2) (BEAKER) (test wnxf=3431) 24 % 20-55 HEPATITIS B SURFACE [id number] 13:26:00 Test Item Value Reference Range Comments HEPATITIS B SURFACE ANTIGEN (2) (BEAKER) (test Nonreactive Nonreactive qbge=9238) HEPATITIS C [id number] 13:26:00 Test Item Value Reference Range Comments HEPATITIS C ANTIBODY (BEAKER) (test buah=487) Nonreactive Nonreactive HIV-1 ANTIGEN WITH HIV-1/2 [id number] 13:26:00 Test Item Value Reference Range Comments HIV-1 ANTIGEN WITH HIV 1\T\2 ANTIBODY (2) Nonreactive Nonreactive (BEAKER) (test zmei=5198) HEPATITIS B SURFACE [id number] 13:19:00 Test Item Value Reference Range Comments HEPATITIS B SURFACE ANTIBODY (BEAKER) (test 34.5 mIU/mL <8.0 ksjp=483) HEPATITIS A ANTIBODY, [id number] 13:19:00 Test Item Value Reference Range Comments HEPATITIS A IGM ANTIBODY (BEAKER) (test Nonreactive Nonreactive mqmb=902) HEPATITIS B CORE ANTIBODY, [id number] 13:19:00 Test Item Value Reference Range Comments HEPATITIS B CORE TOTAL ANTIBODY (BEAKER) (test Nonreactive Nonreactive hoet=337) HEPATITIS A ANTIBODY, [id number] 13:19:00 Test Item Value Reference Range Comments HEPATITIS A IGG ANTIBODY (BEAKER) (test Nonreactive Nonreactive pfcv=6305) PROTHROMBIN [id number] 13:00:00 Test Item Value Reference Range Comments PROTIME (BEAKER) (test vbhu=419) 15.5 seconds 11.7-14.7 INR (BEAKER) (test jxgg=977) 1.2 <=5.9 RECOMMENDED COUMADIN/WARFARIN INR THERAPY RANGESSTANDARD DOSE: 2.0 - 3.0 Includes: PROPHYLAXIS forvenous thrombosis, systemic embolization; TREATMENT for venous thrombosis and/or pulmonary embolus.HIGH RISK: Target INR is 2.5-3.5 for patients with mechanical heart valves.[id number] 03:31:00 Test Item Value Reference Range Comments PHOSPHORUS (BEAKER) (test qveq=759) 3.5 mg/dL 2.3-4.7 [id number] 03:31:00 Test Item Value Reference Range Comments MAGNESIUM (BEAKER) (test rjua=260) 1.5 mg/dL 1.6-2.6 COMPREHENSIVE METABOLIC [id number] 03:31:00 Test Item Value Reference Range Comments TOTAL PROTEIN (BEAKER) 6.5 gm/dL 6.0-8.3 (test glss=742) ALBUMIN (BEAKER) (test 3.7 g/dL 3.5-5.0 gryk=8539) ALKALINE PHOSPHATASE 200 U/L 40-150 (BEAKER) (test ivuo=413) BILIRUBIN TOTAL (BEAKER) 0.8 mg/dL 0.2-1.2 (test jgeb=862) SODIUM (BEAKER) (test 142 meq/L 136-145 zfds=093) POTASSIUM (BEAKER) (test 3.1 meq/L 3.5-5.1 nkbv=915) CHLORIDE (BEAKER) (test 103 meq/L 98-107 xdej=723) CO2 (BEAKER) (test 24 meq/L 22-29 vjku=158) BLOOD UREA NITROGEN 4 mg/dL 7-21 (BEAKER) (test epct=289) CREATININE (BEAKER) (test 0.55 mg/dL 0.57-1.25 nnah=628) GLUCOSE RANDOM (BEAKER) 100 mg/dL 70-105 (test zlye=675) CALCIUM (BEAKER) (test 8.5 mg/dL 8.4-10.2 oksq=400) AST (SGOT) (BEAKER) (test 318 U/L 5-34 ilae=330) ALT (SGPT) (BEAKER) (test 244 U/L 6-55 repb=208) EGFR (BEAKER) (test 173 mL/min/1.73 sq ESTIMATED GFR IS NOT jbtb=3757) m ACCURATE CREATININE CLEARANCE IN PREDICTING GLOMERULAR FILTRATION RATE. ESTIMATED GFR IS NOT APPLICABLE FOR DIALYSIS PATIENTS. CBC W/PLT COUNT & AUTO [id number] 03:03:00 Test Item Value Reference Range Comments WHITE BLOOD CELL COUNT (BEAKER) (test ehdv=860) 4.2 K/ L 3.5-10.5 RED BLOOD CELL COUNT (BEAKER) (test ioec=407) 3.61 M/ L 4.63-6.08 HEMOGLOBIN (BEAKER) (test pubm=878) 12.3 GM/DL 13.7-17.5 HEMATOCRIT (BEAKER) (test ajrb=125) 35.9 % 40.1-51.0 MEAN CORPUSCULAR VOLUME (BEAKER) (test qxuf=756) 99.4 fL 79.0-92.2 MEAN CORPUSCULAR HEMOGLOBIN (BEAKER) (test 34.1 pg 25.7-32.2 gchd=961) MEAN CORPUSCULAR HEMOGLOBIN CONC (BEAKER) (test 34.3 GM/DL 32.3-36.5 yhqb=878) RED CELL DISTRIBUTION WIDTH (BEAKER) (test 12.3 % 11.6-14.4 vkzw=387) PLATELET COUNT (BEAKER) (test zxfz=203) 122 K/CU MM 150-450 MEAN PLATELET VOLUME (BEAKER) (test gwpx=192) 9.8 fL 9.4-12.4 NUCLEATED RED BLOOD CELLS (BEAKER) (test 0 /100 WBC 0-0 pfzi=278) NEUTROPHILS RELATIVE PERCENT (BEAKER) (test 70 % wdwf=092) LYMPHOCYTES RELATIVE PERCENT (BEAKER) (test 17 % hdcu=743) MONOCYTES RELATIVE PERCENT (BEAKER) (test 11 % ocbm=767) EOSINOPHILS RELATIVE PERCENT (BEAKER) (test 1 % mlbq=798) BASOPHILS RELATIVE PERCENT (BEAKER) (test 1 % tnmt=552) NEUTROPHILS ABSOLUTE COUNT (BEAKER) (test 2.94 K/ L 1.78-5.38 vwxv=326) LYMPHOCYTES ABSOLUTE COUNT (BEAKER) (test 0.73 K/ L 1.32-3.57 bvde=446) MONOCYTES ABSOLUTE COUNT (BEAKER) (test 0.45 K/ L 0.30-0.82 agbf=506) EOSINOPHILS ABSOLUTE COUNT (BEAKER) (test 0.04 K/ L 0.04-0.54 jrmh=846) BASOPHILS ABSOLUTE COUNT (BEAKER) (test 0.02 K/ L 0.01-0.08 qfrt=019) IMMATURE GRANULOCYTES-RELATIVE PERCENT (BEAKER) 1 % 0-1 (test vjqh=4713) POCT-GLUCOSE [id number] 12:15:00 Test Item Value Reference Range Comments POC-GLUCOSE METER (BEAKER) 99 mg/dL 70-110 TESTED AT [facility] [address] [facility] (test nijk=4699) [facility] [address] [id number] 06:15:00 Test Item Value Reference Range Comments MAGNESIUM (BEAKER) (test dped=818) 1.8 mg/dL 1.6-2.6 COMPREHENSIVE METABOLIC [id number] 06:15:00 Test Item Value Reference Range Comments TOTAL PROTEIN (BEAKER) 6.6 gm/dL 6.0-8.3 (test wciy=285) ALBUMIN (BEAKER) (test 3.6 g/dL 3.5-5.0 clrx=8001) ALKALINE PHOSPHATASE 149 U/L 40-150 (BEAKER) (test tjnz=785) BILIRUBIN TOTAL (BEAKER) 0.8 mg/dL 0.2-1.2 (test vfpy=505) SODIUM (BEAKER) (test 135 meq/L 136-145 vpuh=317) POTASSIUM (BEAKER) (test 3.6 meq/L 3.5-5.1 bscm=584) CHLORIDE (BEAKER) (test 98 meq/L 98-107 lbvs=435) CO2 (BEAKER) (test 26 meq/L 22-29 krwf=167) BLOOD UREA NITROGEN 8 mg/dL 7-21 (BEAKER) (test lhoo=260) CREATININE (BEAKER) (test 0.57 mg/dL 0.57-1.25 tmgm=569) GLUCOSE RANDOM (BEAKER) 100 mg/dL 70-105 (test liqd=499) CALCIUM (BEAKER) (test 9.5 mg/dL 8.4-10.2 vaxx=619) AST (SGOT) (BEAKER) (test 155 U/L 5-34 jdju=052) ALT (SGPT) (BEAKER) (test 151 U/L 6-55 lcfq=245) EGFR (BEAKER) (test 166 mL/min/1.73 sq ESTIMATED GFR IS NOT ffzn=8749) m ACCURATE CREATININE CLEARANCE IN PREDICTING GLOMERULAR FILTRATION RATE. ESTIMATED GFR IS NOT APPLICABLE FOR DIALYSIS PATIENTS. CBC W/PLT COUNT & AUTO [id number] 05:30:00 Test Item Value Reference Range Comments WHITE BLOOD CELL COUNT (BEAKER) (test snes=025) 5.1 K/ L 3.5-10.5 RED BLOOD CELL COUNT (BEAKER) (test tsgh=435) 3.81 M/ L 4.63-6.08 HEMOGLOBIN (BEAKER) (test tvdy=389) 13.1 GM/DL 13.7-17.5 HEMATOCRIT (BEAKER) (test phwt=657) 37.6 % 40.1-51.0 MEAN CORPUSCULAR VOLUME (BEAKER) (test ieas=491) 98.7 fL 79.0-92.2 MEAN CORPUSCULAR HEMOGLOBIN (BEAKER) (test 34.4 pg 25.7-32.2 rnfr=457) MEAN CORPUSCULAR HEMOGLOBIN CONC (BEAKER) (test 34.8 GM/DL 32.3-36.5 wgbj=948) RED CELL DISTRIBUTION WIDTH (BEAKER) (test 11.5 % 11.6-14.4 esir=894) PLATELET COUNT (BEAKER) (test lzxv=611) 152 K/CU MM 150-450 MEAN PLATELET VOLUME (BEAKER) (test pbcr=302) 10.2 fL 9.4-12.4 NUCLEATED RED BLOOD CELLS (BEAKER) (test 0 /100 WBC 0-0 xxiw=541) NEUTROPHILS RELATIVE PERCENT (BEAKER) (test 71 % gisl=663) LYMPHOCYTES RELATIVE PERCENT (BEAKER) (test 14 % nvva=114) MONOCYTES RELATIVE PERCENT (BEAKER) (test 11 % lvvt=767) EOSINOPHILS RELATIVE PERCENT (BEAKER) (test 2 % tbso=154) BASOPHILS RELATIVE PERCENT (BEAKER) (test 1 % bsst=104) NEUTROPHILS ABSOLUTE COUNT (BEAKER) (test 3.66 K/ L 1.78-5.38 cexq=599) LYMPHOCYTES ABSOLUTE COUNT (BEAKER) (test 0.71 K/ L 1.32-3.57 gupr=434) MONOCYTES ABSOLUTE COUNT (BEAKER) (test 0.58 K/ L 0.30-0.82 wpra=489) EOSINOPHILS ABSOLUTE COUNT (BEAKER) (test 0.10 K/ L 0.04-0.54 uscb=265) BASOPHILS ABSOLUTE COUNT (BEAKER) (test 0.04 K/ L 0.01-0.08 apep=386) IMMATURE GRANULOCYTES-RELATIVE PERCENT (BEAKER) 1 % 0-1 (test fsau=4000) POCT-GLUCOSE [id number] 11:54:00 Test Item Value Reference Range Comments POC-GLUCOSE METER (BEAKER) 83 mg/dL 70-110 TESTED AT [facility] [address] [facility] (test pmeh=8343) [facility] [address] [id number] 05:54:00 Test Item Value Reference Range Comments PHOSPHORUS (BEAKER) (test itng=134) 2.3 mg/dL 2.3-4.7 [id number] 05:54:00 Test Item Value Reference Range Comments MAGNESIUM (BEAKER) (test pvih=913) 2.0 mg/dL 1.6-2.6 COMPREHENSIVE METABOLIC [id number] 05:54:00 Test Item Value Reference Range Comments TOTAL PROTEIN (BEAKER) 6.0 gm/dL 6.0-8.3 (test vwng=449) ALBUMIN (BEAKER) (test 3.2 g/dL 3.5-5.0 lwhe=2447) ALKALINE PHOSPHATASE 134 U/L 40-150 (BEAKER) (test piot=789) BILIRUBIN TOTAL (BEAKER) 1.1 mg/dL 0.2-1.2 (test xoof=361) SODIUM (BEAKER) (test 134 meq/L 136-145 wrxy=706) POTASSIUM (BEAKER) (test 3.6 meq/L 3.5-5.1 taqm=636) CHLORIDE (BEAKER) (test 100 meq/L 98-107 gkhv=803) CO2 (BEAKER) (test 26 meq/L 22-29 eejd=989) BLOOD UREA NITROGEN 4 mg/dL 7-21 (BEAKER) (test rujt=818) CREATININE (BEAKER) (test 0.54 mg/dL 0.57-1.25 ekjh=966) GLUCOSE RANDOM (BEAKER) 141 mg/dL 70-105 (test megi=667) CALCIUM (BEAKER) (test 8.8 mg/dL 8.4-10.2 hhiy=146) AST (SGOT) (BEAKER) (test 183 U/L 5-34 smfd=602) ALT (SGPT) (BEAKER) (test 149 U/L 6-55 zlmi=145) EGFR (BEAKER) (test 176 mL/min/1.73 sq ESTIMATED GFR IS NOT ojlp=6300) m ACCURATE CREATININE CLEARANCE IN PREDICTING GLOMERULAR FILTRATION RATE. ESTIMATED GFR IS NOT APPLICABLE FOR DIALYSIS PATIENTS. LACTIC ACID, [id number] 05:35:00 Test Item Value Reference Range Comments LACTATE BLOOD VENOUS (2) (BEAKER) (test 1.0 mmol/L 0.5-2.2 tbbn=2506) CBC W/PLT COUNT & AUTO [id number] 05:23:00 Test Item Value Reference Range Comments WHITE BLOOD CELL COUNT (BEAKER) (test qpnp=658) 5.0 K/ L 3.5-10.5 RED BLOOD CELL COUNT (BEAKER) (test zcth=521) 3.88 M/ L 4.63-6.08 HEMOGLOBIN (BEAKER) (test iaqe=119) 13.0 GM/DL 13.7-17.5 HEMATOCRIT (BEAKER) (test fwns=917) 38.5 % 40.1-51.0 MEAN CORPUSCULAR VOLUME (BEAKER) (test tzrh=456) 99.2 fL 79.0-92.2 MEAN CORPUSCULAR HEMOGLOBIN (BEAKER) (test 33.5 pg 25.7-32.2 xnys=949) MEAN CORPUSCULAR HEMOGLOBIN CONC (BEAKER) (test 33.8 GM/DL 32.3-36.5 bduq=239) RED CELL DISTRIBUTION WIDTH (BEAKER) (test 11.6 % 11.6-14.4 lvfc=476) PLATELET COUNT (BEAKER) (test fcoj=285) 113 K/CU MM 150-450 MEAN PLATELET VOLUME (BEAKER) (test ubxm=487) 10.7 fL 9.4-12.4 NUCLEATED RED BLOOD CELLS (BEAKER) (test 0 /100 WBC 0-0 hhlq=475) NEUTROPHILS RELATIVE PERCENT (BEAKER) (test 72 % thrj=895) LYMPHOCYTES RELATIVE PERCENT (BEAKER) (test 15 % uclv=289) MONOCYTES RELATIVE PERCENT (BEAKER) (test 10 % mvhu=609) EOSINOPHILS RELATIVE PERCENT (BEAKER) (test 2 % gxcn=903) BASOPHILS RELATIVE PERCENT (BEAKER) (test 1 % rkyd=625) NEUTROPHILS ABSOLUTE COUNT (BEAKER) (test 3.56 K/ L 1.78-5.38 rywu=157) LYMPHOCYTES ABSOLUTE COUNT (BEAKER) (test 0.76 K/ L 1.32-3.57 jvaj=290) MONOCYTES ABSOLUTE COUNT (BEAKER) (test 0.49 K/ L 0.30-0.82 shas=148) EOSINOPHILS ABSOLUTE COUNT (BEAKER) (test 0.10 K/ L 0.04-0.54 wmpp=512) BASOPHILS ABSOLUTE COUNT (BEAKER) (test 0.04 K/ L 0.01-0.08 wkoj=275) IMMATURE GRANULOCYTES-RELATIVE PERCENT (BEAKER) 1 % 0-1 (test qqtd=1678) POCT-GLUCOSE [id number] 18:44:00 Test Item Value Reference Range Comments POC-GLUCOSE METER (BEAKER) 100 mg/dL 70-110 TESTED AT [facility] [address] [facility] (test sxxb=2071) [facility] [address] [id number] 17:58:00 Test Item Value Reference Range Comments PHOSPHORUS (BEAKER) (test gbrj=346) 2.3 mg/dL 2.3-4.7 [id number] 17:58:00 Test Item Value Reference Range Comments MAGNESIUM (BEAKER) (test bnfy=331) 1.8 mg/dL 1.6-2.6 BASIC METABOLIC [id number] 17:58:00 Test Item Value Reference Range Comments SODIUM (BEAKER) (test 137 meq/L 136-145 mnax=975) POTASSIUM (BEAKER) (test 3.6 meq/L 3.5-5.1 fntl=302) CHLORIDE (BEAKER) (test 102 meq/L 98-107 vlbn=587) CO2 (BEAKER) (test 26 meq/L 22-29 tygr=466) BLOOD UREA NITROGEN 4 mg/dL 7-21 (BEAKER) (test ukpm=895) CREATININE (BEAKER) (test 0.54 mg/dL 0.57-1.25 uqag=239) GLUCOSE RANDOM (BEAKER) 123 mg/dL 70-105 (test uhfd=437) CALCIUM (BEAKER) (test 8.7 mg/dL 8.4-10.2 jgkz=394) EGFR (BEAKER) (test 177 mL/min/1.73 sq m ESTIMATED GFR IS NOT mjyz=3275) ACCURATE CREATININE CLEARANCE IN PREDICTING GLOMERULAR FILTRATION RATE. ESTIMATED GFR IS NOT APPLICABLE FOR DIALYSIS PATIENTS. [id number] 16:55:00 Test Item Value Reference Range Comments MAGNESIUM (BEAKER) (test 1.6 mg/dL 1.6-2.6 Specimen slightly hemolyzed oxxy=432) [id number] 16:55:00 Test Item Value Reference Range Comments PHOSPHORUS (BEAKER) (test 2.3 mg/dL 2.3-4.7 Specimen slightly hemolyzed bwyw=295) BASIC METABOLIC [id number] 16:55:00 Test Item Value Reference Range Comments SODIUM (BEAKER) (test 138 meq/L 136-145 efyv=588) POTASSIUM (BEAKER) (test 3.7 meq/L 3.5-5.1 Specimen slightly yfks=092) hemolyzed CHLORIDE (BEAKER) (test 105 meq/L 98-107 nttl=261) CO2 (BEAKER) (test 23 meq/L 22-29 jghi=808) BLOOD UREA NITROGEN 4 mg/dL 7-21 (BEAKER) (test qeso=680) CREATININE (BEAKER) (test 0.51 mg/dL 0.57-1.25 Specimen slightly iwxq=005) hemolyzed GLUCOSE RANDOM (BEAKER) 99 mg/dL 70-105 (test dvhj=321) CALCIUM (BEAKER) (test 8.0 mg/dL 8.4-10.2 cwpq=899) EGFR (BEAKER) (test 190 mL/min/1.73 sq m ESTIMATED GFR IS NOT fxom=3824) ACCURATE CREATININE CLEARANCE IN PREDICTING GLOMERULAR FILTRATION RATE. ESTIMATED GFR IS NOT APPLICABLE FOR DIALYSIS PATIENTS. POCT-GLUCOSE [id number] 12:41:00 Test Item Value Reference Range Comments POC-GLUCOSE METER (BEAKER) 100 mg/dL 70-110 TESTED AT [facility] [address] [facility] (test pome=0266) [facility] [address] POCT-GLUCOSE [id number] 08:07:00 Test Item Value Reference Range Comments POC-GLUCOSE METER (BEAKER) 99 mg/dL 70-110 TESTED AT [facility] [address] [facility] (test pyxm=0045) [facility] [address] U/S, ABDOMINAL, [id number] 08:05:00Abdomen limited area? Add comment if clarification [...] secondary to portal hypertension. Signed: [facility] Verified Date /Time: 09/30/2018 08:05:48 Reading Location: [place] [id number] Ultrasound Reading Room [id number] 07:23:00 Test Item Value Reference Range Comments PHOSPHORUS (BEAKER) (test jhpz=774) 1.2 mg/dL 2.3-4.7 [id number] 07:11:00 Test Item Value Reference Range Comments MAGNESIUM (BEAKER) (test qagt=125) 2.3 mg/dL 1.6-2.6 COMPREHENSIVE METABOLIC [id number] 07:11:00 Test Item Value Reference Range Comments TOTAL PROTEIN (BEAKER) 5.8 gm/dL 6.0-8.3 (test pqik=439) ALBUMIN (BEAKER) (test 3.1 g/dL 3.5-5.0 uzuj=8297) ALKALINE PHOSPHATASE 141 U/L 40-150 (BEAKER) (test azvy=249) BILIRUBIN TOTAL (BEAKER) 1.1 mg/dL 0.2-1.2 (test hyyz=798) SODIUM (BEAKER) (test 135 meq/L 136-145 ffij=864) POTASSIUM (BEAKER) (test 3.7 meq/L 3.5-5.1 ywnq=944) CHLORIDE (BEAKER) (test 104 meq/L 98-107 zbih=853) CO2 (BEAKER) (test 24 meq/L 22-29 erpj=760) BLOOD UREA NITROGEN 5 mg/dL 7-21 (BEAKER) (test rmir=138) CREATININE (BEAKER) (test 0.39 mg/dL 0.57-1.25 wxkj=179) GLUCOSE RANDOM (BEAKER) 114 mg/dL 70-105 (test xivo=112) CALCIUM (BEAKER) (test 8.3 mg/dL 8.4-10.2 cfyk=122) AST (SGOT) (BEAKER) (test 354 U/L 5-34 zlfj=608) ALT (SGPT) (BEAKER) (test 188 U/L 6-55 lfwv=454) EGFR (BEAKER) (test 258 mL/min/1.73 sq ESTIMATED GFR IS NOT cnwr=9015) m ACCURATE CREATININE CLEARANCE IN PREDICTING GLOMERULAR FILTRATION RATE. ESTIMATED GFR IS NOT APPLICABLE FOR DIALYSIS PATIENTS. LACTIC ACID, [id number] 04:07:00 Test Item Value Reference Range Comments LACTATE BLOOD VENOUS (2) 0.8 mmol/L 0.5-2.2 Specimen slightly hemolyzed (BEAKER) (test obru=9477) CBC W/PLT COUNT & AUTO [id number] 04:00:00 Test Item Value Reference Range Comments WHITE BLOOD CELL COUNT (BEAKER) (test bmfr=348) 6.1 K/ L 3.5-10.5 RED BLOOD CELL COUNT (BEAKER) (test asnk=421) 3.87 M/ L 4.63-6.08 HEMOGLOBIN (BEAKER) (test ksje=392) 13.3 GM/DL 13.7-17.5 HEMATOCRIT (BEAKER) (test tocv=392) 39.1 % 40.1-51.0 MEAN CORPUSCULAR VOLUME (BEAKER) (test uacb=852) 101.0 fL 79.0-92.2 MEAN CORPUSCULAR HEMOGLOBIN (BEAKER) (test 34.4 pg 25.7-32.2 wojp=518) MEAN CORPUSCULAR HEMOGLOBIN CONC (BEAKER) (test 34.0 GM/DL 32.3-36.5 bhnm=789) RED CELL DISTRIBUTION WIDTH (BEAKER) (test 12.1 % 11.6-14.4 brib=732) PLATELET COUNT (BEAKER) (test livx=535) 105 K/CU MM 150-450 MEAN PLATELET VOLUME (BEAKER) (test jszl=974) 10.4 fL 9.4-12.4 NUCLEATED RED BLOOD CELLS (BEAKER) (test 0 /100 WBC 0-0 hqjc=925) NEUTROPHILS RELATIVE PERCENT (BEAKER) (test 74 % lhzb=134) LYMPHOCYTES RELATIVE PERCENT (BEAKER) (test 14 % bccn=362) MONOCYTES RELATIVE PERCENT (BEAKER) (test 10 % waoq=052) EOSINOPHILS RELATIVE PERCENT (BEAKER) (test 1 % rqyp=383) BASOPHILS RELATIVE PERCENT (BEAKER) (test 1 % gpgw=538) NEUTROPHILS ABSOLUTE COUNT (BEAKER) (test 4.52 K/ L 1.78-5.38 apwm=438) LYMPHOCYTES ABSOLUTE COUNT (BEAKER) (test 0.84 K/ L 1.32-3.57 wzvp=919) MONOCYTES ABSOLUTE COUNT (BEAKER) (test 0.62 K/ L 0.30-0.82 fngh=243) EOSINOPHILS ABSOLUTE COUNT (BEAKER) (test 0.06 K/ L 0.04-0.54 tlpt=166) BASOPHILS ABSOLUTE COUNT (BEAKER) (test 0.03 K/ L 0.01-0.08 ucqz=122) IMMATURE GRANULOCYTES-RELATIVE PERCENT (BEAKER) 0 % 0-1 (test kozs=7656) [id number] 01:32:00 Test Item Value Reference Range Comments PROCALCITONIN (BEAKER) (test iizg=9721) 0.48 ng/mL <0.05 SEPSIS RISK (ng/mL)Low: 0.05-0.50Intermediate: 0.51-2.00High: & gt;=2.01BASIC METABOLIC [id number] 00:58:00 Test Item Value Reference Range Comments SODIUM (BEAKER) (test 135 meq/L 136-145 nxvg=176) POTASSIUM (BEAKER) (test 3.4 meq/L 3.5-5.1 xukr=512) CHLORIDE (BEAKER) (test 104 meq/L 98-107 uqdc=656) CO2 (BEAKER) (test 22 meq/L 22-29 ovhi=603) BLOOD UREA NITROGEN 7 mg/dL 7-21 (BEAKER) (test xkiv=906) CREATININE (BEAKER) (test 0.55 mg/dL 0.57-1.25 iyev=081) GLUCOSE RANDOM (BEAKER) 113 mg/dL 70-105 (test shtw=510) CALCIUM (BEAKER) (test 8.4 mg/dL 8.4-10.2 jtfd=510) EGFR (BEAKER) (test 174 mL/min/1.73 sq m ESTIMATED GFR IS NOT pkzo=9478) ACCURATE CREATININE CLEARANCE IN PREDICTING GLOMERULAR FILTRATION RATE. ESTIMATED GFR IS NOT APPLICABLE FOR DIALYSIS PATIENTS. [id number] 00:57:00 Test Item Value Reference Range Comments MAGNESIUM (BEAKER) (test nxuk=347) 1.5 mg/dL 1.6-2.6 LACTIC ACID, [id number] 00:37:00 Test Item Value Reference Range Comments LACTATE BLOOD VENOUS (2) 0.7 mmol/L 0.5-2.2 Specimen moderately hemolyzed (BEAKER) (test pgff=8509) POCT-GLUCOSE [id number] 00:25:00 Test Item Value Reference Range Comments POC-GLUCOSE METER (BEAKER) 101 mg/dL 70-110 TESTED AT [address] (test lmlq=4935) [place] [address] POCT-GLUCOSE [id number] 18:32:00 Test Item Value Reference Range Comments POC-GLUCOSE METER (BEAKER) 76 mg/dL 70-110 TESTED AT [address] (test axbw=3977) [place] [address] [id number] 15:15:00 Test Item Value Reference Range Comments POTASSIUM (BEAKER) (test ytdv=442) 3.4 meq/L 3.5-5.1 [id number] 15:15:00 Test Item Value Reference Range Comments MAGNESIUM (BEAKER) (test ovpr=533) 2.1 mg/dL 1.6-2.6 CT, [id number] 12:38:00FINAL REPORT CT abdomen with and without [...] Verified Date/Time: 09/29/2018 12:38:07 Reading Location : [address] Consult Reading Room POCT-GLUCOSE [id number] 11:49:00 Test Item Value Reference Range Comments POC-GLUCOSE METER (BEAKER) 83 mg/dL 70-110 TESTED AT [facility] [address] [facility] (test tosv=8750) [facility] [address] [id number] 10:49:00 Test Item Value Reference Range Comments TRIGLYCERIDES (BEAKER) (test 71 mg/dL Specimen slightly hemolyzed wcda=725) TRIGLYCERIDE REFERENCE RANGELow Risk <150Borderline Risk 150-199High Risk 200-499Very High Risk>=[id number] 05:09:00 Test Item Value Reference Range Comments LIPASE (BEAKER) (test urbd=547) > U/L 8-78 [id number] 04:35:00 Test Item Value Reference Range Comments MAGNESIUM (BEAKER) (test 1.6 mg/dL 1.6-2.6 Specimen slightly hemolyzed gxko=521) [id number] 04:35:00 Test Item Value Reference Range Comments PHOSPHORUS (BEAKER) (test 3.2 mg/dL 2.3-4.7 Specimen slightly hemolyzed otmt=725) COMPREHENSIVE METABOLIC [id number] 04:35:00 Test Item Value Reference Range Comments TOTAL PROTEIN (BEAKER) 6.8 gm/dL 6.0-8.3 Specimen slightly (test sdns=392) hemolyzed ALBUMIN (BEAKER) (test 3.8 g/dL 3.5-5.0 Specimen slightly szed=7600) hemolyzed ALKALINE PHOSPHATASE 130 U/L 40-150 (BEAKER) (test ilcm=839) BILIRUBIN TOTAL (BEAKER) 1.7 mg/dL 0.2-1.2 Specimen slightly (test gavj=060) hemolyzed SODIUM (BEAKER) (test 138 meq/L 136-145 kzpx=831) POTASSIUM (BEAKER) (test 3.7 meq/L 3.5-5.1 Specimen slightly ekwu=386) hemolyzed CHLORIDE (BEAKER) (test 103 meq/L 98-107 enew=372) CO2 (BEAKER) (test 17 meq/L 22-29 rapp=720) BLOOD UREA NITROGEN 9 mg/dL 7-21 (BEAKER) (test kkxr=696) CREATININE (BEAKER) (test 0.65 mg/dL 0.57-1.25 Specimen slightly kdxq=565) hemolyzed GLUCOSE RANDOM (BEAKER) 103 mg/dL 70-105 (test sqjv=685) CALCIUM (BEAKER) (test 8.7 mg/dL 8.4-10.2 dyxd=128) AST (SGOT) (BEAKER) (test 151 U/L 5-34 Specimen slightly yyyp=913) hemolyzed ALT (SGPT) (BEAKER) (test 143 U/L 6-55 Specimen slightly nurs=858) hemolyzed EGFR (BEAKER) (test 143 mL/min/1.73 sq ESTIMATED GFR IS NOT basv=7450) m ACCURATE CREATININE CLEARANCE IN PREDICTING GLOMERULAR FILTRATION RATE. ESTIMATED GFR IS NOT APPLICABLE FOR DIALYSIS PATIENTS. PROTHROMBIN [id number] 04:34:00 Test Item Value Reference Range Comments PROTIME (BEAKER) (test cuon=054) 14.6 seconds 11.7-14.7 INR (BEAKER) (test ejmj=217) 1.1 <=5.9 RECOMMENDED COUMADIN/WARFARIN INR THERAPY RANGESSTANDARD DOSE: 2.0 - 3.0 Includes: PROPHYLAXIS forvenous thrombosis, systemic embolization; TREATMENT for venous thrombosis and/or pulmonary embolus.HIGH RISK: Target INR is 2.5-3.5 for patients with mechanical heart valves.CBC W/PLT COUNT & AUTO [id number] 04:09:00 Test Item Value Reference Range Comments WHITE BLOOD CELL COUNT (BEAKER) (test drvb=711) 6.2 K/ L 3.5-10.5 RED BLOOD CELL COUNT (BEAKER) (test qoio=471) 4.33 M/ L 4.63-6.08 HEMOGLOBIN (BEAKER) (test fmos=936) 15.0 GM/DL 13.7-17.5 HEMATOCRIT (BEAKER) (test lrxy=377) 43.2 % 40.1-51.0 MEAN CORPUSCULAR VOLUME (BEAKER) (test jhqo=494) 99.8 fL 79.0-92.2 MEAN CORPUSCULAR HEMOGLOBIN (BEAKER) (test 34.6 pg 25.7-32.2 mhcg=847) MEAN CORPUSCULAR HEMOGLOBIN CONC (BEAKER) (test 34.7 GM/DL 32.3-36.5 qiei=991) RED CELL DISTRIBUTION WIDTH (BEAKER) (test 12.4 % 11.6-14.4 ofgj=781) PLATELET COUNT (BEAKER) (test voax=696) 160 K/CU MM 150-450 MEAN PLATELET VOLUME (BEAKER) (test dqxg=911) 10.4 fL 9.4-12.4 NUCLEATED RED BLOOD CELLS (BEAKER) (test 0 /100 WBC 0-0 mwnv=949) NEUTROPHILS RELATIVE PERCENT (BEAKER) (test 81 % kpaq=237) LYMPHOCYTES RELATIVE PERCENT (BEAKER) (test 7 % tads=197) MONOCYTES RELATIVE PERCENT (BEAKER) (test 10 % zovc=078) EOSINOPHILS RELATIVE PERCENT (BEAKER) (test 0 % xvzh=762) BASOPHILS RELATIVE PERCENT (BEAKER) (test 1 % xfdk=714) NEUTROPHILS ABSOLUTE COUNT (BEAKER) (test 5.01 K/ L 1.78-5.38 cshn=201) LYMPHOCYTES ABSOLUTE COUNT (BEAKER) (test 0.44 K/ L 1.32-3.57 ehsx=500) MONOCYTES ABSOLUTE COUNT (BEAKER) (test 0.62 K/ L 0.30-0.82 sidn=483) EOSINOPHILS ABSOLUTE COUNT (BEAKER) (test 0.01 K/ L 0.04-0.54 uivi=202) BASOPHILS ABSOLUTE COUNT (BEAKER) (test 0.03 K/ L 0.01-0.08 vwqq=631) IMMATURE GRANULOCYTES-RELATIVE PERCENT (BEAKER) 1 % 0-1 (test xqkb=4961)
[2019-07-29 19:51] LABS: Absolute Lymphocytes (CBC) 1.2 K/uL (0.7-4.9); Basophils % 0.4 % (0-1.3); Hematocrit 38.8 % (39.6-49.0); Lymphocytes % 20.5 % (15.3-44.8); MPV 8.7 fL (7.6-11.3); RBC Red Blood Cell Count 4.45 M/uL (4.33-5.43)
[2019-07-29 19:59] LABS: ALT/SGPT 30 U/L (12-78); AST/SGOT 15 U/L (15-37); Albumin 4.1 g/dL (3.4-5.0); Alkaline Phosphatase 93 U/L (45-117); BUN Blood Urea Nitrogen 7 mg/dL (7-18); Bicarbonate 25 mmol/L (21-32); Bilirubin Direct < 0.1 mg/dL (0-0.2); Bilirubin Total 0.3 mg/dL (0.2-1.0); Glucose Level 105 mg/dL (74-106); Lipase 130 U/L (73-393); Potassium 3.2 mmol/L (3.5-5.1); Protein, Total 7.4 g/dL (6.4-8.2); Sodium Level 143 mmol/L (136-145)
[2019-07-29] MEDS ORDERED: MEPERIDINE HCL 25 MG/0.5 ML ONE ×2 (20:05→21:37)
[2019-07-29] MEDS ORDERED: ONDANSETRON 4 MG/2 ML VIAL ONE (20:05)
[2019-07-29] MEDS ORDERED: NA CHLORIDE 0.9% 1,000 ML ONE (20:05)
--- NOTE | 2019-07-29 21:20 | ER ---
Nurse's Notes [facility] Name: Jonathan Gutierrez Age: 33 yrs Sex: Male : 1985 Arrival Date: 07/29/2019 Time: 18:47 Bed 19 Private MD: Diagnosis: Abdominal and pelvic pain;Gastrointestinal hemorrhage, unspecified Presentation: 07/29 18:49 Presenting complaint: LUQ pain, N/V, and bloody diarrhea x 3-4 days. Transition of hb care: patient was not received from another setting of care. Onset of symptoms was July 26, 2019. Risk Assessment: Do you want to hurt yourself or someone else? Patient reports no desire to harm self or others. Care prior to arrival: None. 18:49 Method Of Arrival: Ambulatory hb 18:49 Acuity: NEO 3 hb Historical: - Allergies: 18:51 No Known Allergies; hb - PMHx: 18:51 ADD/ADHD; etoh abuse; Hypertension; liver "spot"; Pancreatitis; hb - PSHx: 18:51 Tonsillectomy; hb - Immunization history:: Adult Immunizations up to date. - Social history:: Smoking status: Patient uses tobacco products, smokes one pack cigarettes per day. - Ebola Screening: : No symptoms or risks identified at this time. Screenin:10 Abuse screen: Denies threats or abuse. Abuse screen: Denies injuries from another. aa1 Nutritional screening: No deficits noted. Tuberculosis screening: No symptoms or risk factors identified. Fall Risk None identified. Assessment: 19:10 General: Appears in no apparent distress. uncomfortable, slender, Behavior is calm, aa1 cooperative, appropriate for age. Pain: Complains of pain in left upper quadrant and right upper quadrant Quality of pain is described as sharp, Is continuous. Neuro: Level of Consciousness is awake, alert, obeys commands, Oriented to person, place, time, situation, Moves all extremities. Full function Gait is steady, Speech is normal. Cardiovascular: Denies chest pain, diaphoresis, palpitations, Heart tones S1 S2 present Rhythm is regular. Respiratory: Airway is patent Respiratory effort is even, unlabored, Respiratory pattern is regular, symmetrical. GI: Abdomen is non-distended, Bowel sounds present X 4 quads. Abd is soft X 4 quads Abdomen is tender to palpation in right upper quadrant and left upper quadrant Reports upper abdominal pain, bloody stool, nausea, vomiting. : No signs and/or symptoms were reported regarding the genitourinary system. EENT: No signs and/or symptoms were reported regarding the EENT system. Derm: Skin is intact, is healthy with good turgor, Skin is pink, warm \\T\\ dry. Musculoskeletal: Circulation, motion, and sensation intact. Capillary refill < 3 seconds. 20:20 Reassessment: Patient appears in no apparent distress at this time. Patient and/or aa1 family updated on plan of care and expected duration. Pain level reassessed. Patient is alert, oriented x 3, equal unlabored respirations, skin warm/dry/pink. Awaiting test results. 21:35 Reassessment: Patient appears in no apparent distress at this time. Patient and/or aa1 family updated on plan of care and expected duration. Pain level reassessed. Patient is alert, oriented x 3, equal unlabored respirations, skin warm/dry/pink. Awaiting bed assignment. 22:55 Reassessment: Patient appears in no apparent distress at this time. Patient and/or aa1 family updated on plan of care and expected duration. Pain level reassessed. Patient is alert, oriented x 3, equal unlabored respirations, skin warm/dry/pink. Pt continues to await bed assignment. 23:13 Reassessment: Patient appears in no apparent distress at this time. Patient and/or aa1 family updated on plan of care and expected duration. Pain level reassessed. Patient is alert, oriented x 3, equal unlabored respirations, skin warm/dry/pink. Report given to AMALIA Cook on 4th floor. Vital Signs: 18:51 BP 180 / 95; Pulse 134; Resp 16; Temp 98.3; Pulse Ox 100% on R/A; Weight 77.11 kg; hb Height 5 ft. 11 in. (180.34 cm); Pain 8/10; 19:45 BP 165 / 99; Pulse 90; Resp 16; Pulse Ox 98% on R/A; aa1 20:49 BP 157 / 100; Pulse 97; Resp 18; Pulse Ox 99% on R/A; Pain 6/10; aa1 21:28 BP 157 / 86; Pulse 89; Resp 16; Temp 98.5; Pulse Ox 97% on R/A; aa1 22:30 BP 158 / 92; Pulse 100; Resp 16; Temp 98.4; Pulse Ox 99% on R/A; Pain 6/10; aa1 18:51 Body Mass Index 23.71 (77.11 kg, 180.34 cm) hb ED Course: 18:47 Patient arrived in ED. as 18:50 Triage completed. hb 18:52 Arm band placed on. hb 18:53 Gordon Pratt PA is PHCP. jr8 18:53 Gerson Boudreaux MD is Attending Physician. jr8 19:01 Annamaria Seals RN is Primary Nurse. aa1 19:10 Patient has correct armband on for positive identification. Placed in gown. Bed in low aa1 position. Call light in reach. Pulse ox on. NIBP on. 19:10 Inserted saline lock: 22 gauge in right wrist, using aseptic technique. Blood collected.ds4 19:20 EKG done, by ED staff, reviewed by Gerson Boudreaux MD. aa1 21:20 Wilton Mancilla MD is Hospitalizing Provider. jr8 22:54 No provider procedures requiring assistance completed. Patient admitted, IV remains in aa1 place. Administered Medications: 19:45 Drug: NS 0.9% 1000 ml Route: IV; Rate: 1000 ml; Site: right wrist; aa1 20:45 Follow up: IV Status: Completed infusion; IV Intake: 1000ml aa1 19:45 Drug: Demerol 25 mg Route: IVP; Site: right wrist; aa1 20:45 Follow up: Response: No adverse reaction; Pain is unchanged, physician notified aa1 19:46 Drug: Zofran 4 mg Route: IVP; Site: right wrist; aa1 20:46 Follow up: Response: No adverse reaction; Nausea is decreased aa1 21:40 Drug: Demerol 25 mg Route: IVP; Site: right wrist; aa1 22:40 Follow up: Response: No adverse reaction; Pain is decreased aa1 21:42 Drug: Cipro 400 mg Volume: 200 ml; Route: IVPB; Infused Over: 60 mins; Site: right aa1 wrist; 23:17 Follow up: IV Status: Completed infusion; IV Intake: 200ml aa1 21:42 Drug: Flagyl 500 mg Volume: 100 ml; Route: IVPB; Rate: 200 ml/hr; Infused Over: 30 aa1 mins; Site: right wrist; 22:12 Follow up: IV Status: Completed infusion; IV Intake: 100ml aa1 Intake: 20:45 IV: 1000ml; Total: 1000ml. aa1 22:12 IV: 100ml; Total: 1100ml. aa1 23:17 IV: 200ml; Total: 1300ml. aa1 Outcome: 21:20 Decision to Hospitalize by Provider. jrPari 23:18 Admitted to Med/surg accompanied by tech, family with patient, via wheelchair, room aa1 410, with chart, Report called to AMALIA Cook 23:18 Condition: good 23:18 Discharge instructions given to patient, Instructed on the need for admit, Demonstrated understanding of instructions. 23:19 Patient left the ED. aa1 Signatures: Annamaria Seals RN RN aa1 Thao Romero Josh, PA PA jr8 Aashish Costello ds4 Leslee Fernandez RN RN Corrections: (The following items were deleted from the chart) 23:17 22:42 IV Status: Completed infusion; IV Intake: 100ml aa1 aa1
--- NOTE | 2019-07-29 21:21 | EDPHYS ---
Physician Documentation [facility] Name: Jonathan Gutierrez Age: 33 yrs Sex: Male : 1985 Arrival Date: 07/29/2019 Time: 18:47 Bed 19 Private MD: ED Physician Gerson Boudreaux HPI: 07/29 19:46 This 33 yrs old Male presents to ER via Ambulatory with complaints of jr8 Abdominal pain. Rectal bleeding. 19:46 The patient presents with abdominal pain in the upper abdomen. Onset: The jr8 symptoms/episode began/occurred acutely, yesterday. The symptoms radiate to back. Associated signs and symptoms: Pertinent positives: nausea, Rectal bleeding. The symptoms are described as sharp. Modifying factors: The symptoms are alleviated by nothing, the symptoms are aggravated by nothing. Severity of pain: At its worst the pain was moderate in the emergency department the pain is unchanged. The patient has experienced similar episodes in the past, a few times. The patient has not recently seen a physician. Stated that he continues to have on/off abdominal pain and hematochezia. Has not been able to see GI due to financial constraints . Historical: - Allergies: 18:51 No Known Allergies; hb - PMHx: 18:51 ADD/ADHD; etoh abuse; Hypertension; liver "spot"; Pancreatitis; hb - PSHx: 18:51 Tonsillectomy; hb - Immunization history:: Adult Immunizations up to date. - Social history:: Smoking status: Patient uses tobacco products, smokes one pack cigarettes per day. - Ebola Screening: : No symptoms or risks identified at this time. ROS: 19:46 Eyes: Negative for injury, pain, redness, and discharge, ENT: Negative for injury, jr8 pain, and discharge, Neck: Negative for injury, pain, and swelling, Cardiovascular: Negative for chest pain, palpitations, and edema, Respiratory: Negative for shortness of breath, cough, wheezing, and pleuritic chest pain, Back: Negative for injury and pain, MS/Extremity: Negative for injury and deformity, Skin: Negative for injury, rash, and discoloration, Neuro: Negative for headache, weakness, numbness, tingling, and seizure. 19:46 Abdomen/GI: Positive for abdominal pain, nausea, rectal bleeding. Exam: 19:46 Eyes: Pupils equal round and reactive to light, extra-ocular motions intact. Lids and jr8 lashes normal. Conjunctiva and sclera are non-icteric and not injected. Cornea within normal limits. Periorbital areas with no swelling, redness, or edema. ENT: Nares patent. No nasal discharge, no septal abnormalities noted. Tympanic membranes are normal and external auditory canals are clear. Oropharynx with no redness, swelling, or masses, exudates, or evidence of obstruction, uvula midline. Mucous membranes moist. Neck: Trachea midline, no thyromegaly or masses palpated, and no cervical lymphadenopathy. Supple, full range of motion without nuchal rigidity, or vertebral point tenderness. No Meningismus. Respiratory: Lungs have equal breath sounds bilaterally, clear to auscultation and percussion. No rales, rhonchi or wheezes noted. No increased work of breathing, no retractions or nasal flaring. Back: No spinal tenderness. No costovertebral tenderness. Full range of motion. Skin: Warm, dry with normal turgor. Normal color with no rashes, no lesions, and no evidence of cellulitis. MS/ Extremity: Pulses equal, no cyanosis. Neurovascular intact. Full, normal range of motion. Neuro: Awake and alert, GCS 15, oriented to person, place, time, and situation. Cranial nerves II-XII grossly intact. Motor strength 5/5 in all extremities. Sensory grossly intact. Cerebellar exam normal. Normal gait. 19:46 Cardiovascular: Rate: tachycardic, Rhythm: regular, Pulses: Pulses are 2+ in right radial artery and left radial artery. Heart sounds: normal, normal S1and S2, no S3 or S4, no murmur, no rub, no gallop. 19:46 Abdomen/GI: Inspection: abdomen appears normal, Bowel sounds: active, all quadrants, Palpation: soft, in all quadrants, mild abdominal tenderness, in the epigastric area, right upper quadrant and left upper quadrant, mass, is not appreciated, rebound tenderness, is not appreciated, voluntary guarding, is elicited in the right upper quadrant and left upper quadrant, involuntary guarding, is not appreciated, no appreciated organomegaly, Rectal exam: Prostate: normal, rectal tone normal, Stool: brown, grossly bloody, hemorrhoid(s), are not appreciated, mass, is not appreciated, swelling, is not appreciated, tenderness, is not appreciated, the exam is chaperoned by the nurse, Indicators: McBurney's point is not tender, Carreon's sign is negative, Rovsing's sign is negative, Liver: tenderness, is not appreciated. Vital Signs: 18:51 BP 180 / 95; Pulse 134; Resp 16; Temp 98.3; Pulse Ox 100% on R/A; Weight 77.11 kg; hb Height 5 ft. 11 in. (180.34 cm); Pain 8/10; 19:45 BP 165 / 99; Pulse 90; Resp 16; Pulse Ox 98% on R/A; aa1 20:49 BP 157 / 100; Pulse 97; Resp 18; Pulse Ox 99% on R/A; Pain 6/10; aa1 21:28 BP 157 / 86; Pulse 89; Resp 16; Temp 98.5; Pulse Ox 97% on R/A; aa1 22:30 BP 158 / 92; Pulse 100; Resp 16; Temp 98.4; Pulse Ox 99% on R/A; Pain 6/10; aa1 18:51 Body Mass Index 23.71 (77.11 kg, 180.34 cm) hb MDM: 18:53 Patient medically screened. jr8 21:19 Data reviewed: vital signs, nurses notes, lab test result(s). Data interpreted: Pulse jr8 oximetry: on room air is 99 %. Interpretation: normal. Counseling: I had a detailed discussion with the patient and/or guardian regarding: the historical points, exam findings, and any diagnostic results supporting the discharge/admit diagnosis, lab results, the need for further work-up and treatment in the hospital. Physician consultation: Wilton Mancilla MD was called at 21:19, was contacted at 21:19, regarding admission, to the medical/surgical unit. consult, patient's condition, and will see patient. 07/29 18:53 Order name: Basic Metabolic Panel; Complete Time: 20:18 07/29 18:53 Order name: CBC with Diff; Complete Time: 20:18 07/29 18:53 Order name: Creatinine for Radiology; Complete Time: 20:18 07/29 18:53 Order name: Hepatic Function; Complete Time: 20:18 07/29 18:53 Order name: Lipase; Complete Time: 20:18 07/29 18:53 Order name: ETOH Level; Complete Time: 20:29 [facility] 07/29 18:53 Order name: UDS; Complete Time: 21:38 [facility] 07/29 21:23 Order name: Urine Dipstick--Ancillary (enter results); Complete Time: 21:56 [facility] 07/29 22:31 Order name: CBC with Automated Diff EDMS 07/29 22:31 Order name: CBC with Automated Diff EDMS 07/29 22:31 Order name: Comprehensive Metabolic Panel EDMS 07/29 22:31 Order name: Comprehensive Metabolic Panel EDMS 07/29 22:31 Order name: Lipase EDMS 07/29 22:31 Order name: Lipase EDMS 07/29 18:53 Order name: IV Saline Lock; Complete Time: 20:14 [facility] 07/29 18:53 Order name: Labs collected and sent; Complete Time: 20:14 [facility] 07/29 18:53 Order name: EKG - Nurse/Tech; Complete Time: 20:14 [facility] 07/29 22:31 Order name: CONS Pharmacy Consult [facility] 07/29 22:31 Order name: CONS Physician Consult [facility] 07/29 22:31 Order name: NPO EDMD 07/29 22:31 Order name: Lipid Profile [facility] 07/29 22:31 Order name: Lipid Profile EDMD Administered Medications: 19:45 Drug: NS 0.9% 1000 ml Route: IV; Rate: 1000 ml; Site: right wrist; aa1 20:45 Follow up: IV Status: Completed infusion; IV Intake: 1000ml aa1 19:45 Drug: Demerol 25 mg Route: IVP; Site: right wrist; aa1 20:45 Follow up: Response: No adverse reaction; Pain is unchanged, physician notified aa1 19:46 Drug: Zofran 4 mg Route: IVP; Site: right wrist; aa1 20:46 Follow up: Response: No adverse reaction; Nausea is decreased aa1 21:40 Drug: Demerol 25 mg Route: IVP; Site: right wrist; aa1 22:40 Follow up: Response: No adverse reaction; Pain is decreased aa1 21:42 Drug: Cipro 400 mg Volume: 200 ml; Route: IVPB; Infused Over: 60 mins; Site: right aa1 wrist; 23:17 Follow up: IV Status: Completed infusion; IV Intake: 200ml aa1 21:42 Drug: Flagyl 500 mg Volume: 100 ml; Route: IVPB; Rate: 200 ml/hr; Infused Over: 30 aa1 mins; Site: right wrist; 22:12 Follow up: IV Status: Completed infusion; IV Intake: 100ml aa1 Disposition: 07/29/19 21:20 Hospitalization ordered by Wilton Mancilla for Inpatient Admission. Preliminary diagnosis are Abdominal and pelvic pain, Gastrointestinal hemorrhage, unspecified. - Bed requested for Telemetry/MedSurg (Inpatient). - Status is Inpatient Admission. aa1 - Condition is Stable. - Problem is new. - Symptoms are unchanged. UTI on Admission? No Signatures: Dispatcher [employer] EDMS Annamaria Seals RN RN aa1 Gordon Pratt PA PA jr8 Ana Pruett RN RN Leslee Fernandez RN RN Corrections: (The following items were deleted from the chart) 22:54 21:20 Hospitalization Ordered by Wilton Mancilla MD for Inpatient Admission. Preliminary cg diagnosis is Abdominal and pelvic pain; Gastrointestinal hemorrhage, unspecified. Bed requested for Telemetry/MedSurg (Inpatient). Status is Inpatient Admission. Condition is Stable. Problem is new. Symptoms are unchanged. UTI on Admission? No. jr8 23:19 22:54 07/29/2019 21:20 Hospitalization Ordered by Wilton Mancilla MD for Inpatient aa1 Admission. Preliminary diagnosis is Abdominal and pelvic pain; Gastrointestinal hemorrhage, unspecified. Bed requested for Telemetry/MedSurg (Inpatient). Status is Inpatient Admission. Condition is Stable. Problem is new. Symptoms are unchanged. UTI on Admission? No. cg
[2019-07-29 21:36] LABS: Barbiturates NEGATIVE (NEGATIVE); Benzodiazepines NEGATIVE (NEGATIVE); Cocaine NEGATIVE (NEGATIVE); METHAMPHETAM NEGATIVE (NEGATIVE); Methadone NEGATIVE (NEGATIVE); Opiates NEGATIVE (NEGATIVE); Phencyclidine NEGATIVE (NEGATIVE); THC Cannibis NEGATIVE (NEGATIVE)
[2019-07-29] MEDS ORDERED: METRONIDAZOLE 500mg IVPB 500 MG/100 ML BAG IV ONE (21:37)
[2019-07-29] MEDS ORDERED: CIPROFLOXACIN 400mg IV 400 MG/200 ML BAG IV ONE (21:37)
[2019-07-29 21:44] LABS: Urine Blood 2+ (NEG); Urine Glucose NEGATIVE (NEG); Urine Protein NEGATIVE (NEG); Urine Specific Gravity 1.015 (1.005-1.030)
[2019-07-29] MEDS ORDERED: MORPHINE 4 MG/ML SYR IV PRN (22:27)
[2019-07-29] MEDS ORDERED: ACETAMINOPHEN 500 MG TAB PO PRN (22:27)
[2019-07-29] MEDS: NA CHLORIDE 0.9% 1,000 ML IV SCH (23:45)
[2019-07-29 23:51] VITALS: BMI 22.3
[2019-07-30] MEDS: TEMAZEPAM 15 MG CAP PO PRN (02:01)
[2019-07-30] MEDS: ONDANSETRON 4 MG/2 ML VIAL IV PRN ×3 (04:20→22:28)
[2019-07-30] MEDS: MEPERIDINE HCL 50 MG/ML IV PRN ×4 (04:21→22:28)
[2019-07-30] MEDS: NA CHLORIDE 0.9% 1,000 ML IV SCH (04:22)
[2019-07-30 04:38] LABS: Absolute Lymphocytes (CBC) 1.3 K/uL (0.7-4.9); Basophils % 0.6 % (0-1.3); Hematocrit 35.7 % (39.6-49.0); MPV 8.4 fL (7.6-11.3)
[2019-07-30 04:54] LABS: ALT/SGPT 22 U/L (12-78); AST/SGOT 10 U/L (15-37); Albumin 3.5 g/dL (3.4-5.0); Alkaline Phosphatase 76 U/L (45-117); BUN Blood Urea Nitrogen 5 mg/dL (7-18); Bicarbonate 28 mmol/L (21-32); Bilirubin Total 0.3 mg/dL (0.2-1.0); Glucose Level 94 mg/dL (74-106); HDL Cholesterol 34 mg/dL (40-60); LDL Cholesterol, Calculated 74 (<130); Lipase 126 U/L (73-393); Potassium 3.9 mmol/L (3.5-5.1); Protein, Total 6.3 g/dL (6.4-8.2); Sodium Level 145 mmol/L (136-145)
--- NOTE | 2019-07-30 07:47 | EKG ---
Test Date: 2019-07-29 Test Time: 19:15:26 Salvage Determiner: PRINCE MEASUREMENT RESULTS: Intervals: Rate: 125 MS: 136 QRSD: 88 QT: 306 QTc: 441 Commerce: P: 68 MS: 136 QRS: 87 T: 38 INTERPRETIVE STATEMENTS: Sinus tachycardia with occasional premature ventricular complexes Biatrial enlargement Nonspecific ST and T wave abnormality Abnormal ECG Compared to ECG 07/15/2019 11:24:49 Ventricular premature complex(es) now present Atrial abnormality now present ST (T wave) deviation now present Electronically Signed On 07-30-19 07:46:30 COOLING PIPE INSPECTOR by Siddharth De Leon
[2019-07-30] MEDS: HYDROCODONE/APAP 7.5/325 MG TAB PO PRN ×2 (08:58→20:14)
--- NOTE | 2019-07-30 10:30 | P.HP ---
Certification for Inpatient Patient admitted to: Inpatient With expected LOS: >2 Midnights Patient will require the following post-hospital care: None Practitioner: I am a practitioner with admitting privileges, knowledge of patient current condition, hospital course, and medical plan of care. Services: Services provided to patient in accordance with Admission requirements found in Title 42 Section 412.3 of the Code of Federal Regulations Patient History Date of Service: 07/29/19 Reason for admission: lower GI bleeding History of Present Illness: patient is a 33-year-old gentleman who is well known to the hospitalist service for multiple prior admissions. He tends to have abdominal pain which has been diagnosed with pancreatitis and colitis in the past. Patient did not follow up for colonoscopy as an outpatient as recommended. He presents with worsening pain and he also states he has some lower GI bleeding. He came to the hospital for further evaluation. In the emergency room his hemoglobin is stable. Hemodynamically he is stable. He will be admitted to the hospital for further evaluation. Allergies No Known Allergies Allergy (Verified 06/01/19 21:20) Home Medications: Pantoprazole [Protonix Tab*] 40 mg PO DAILY #30 tab 06/04/19 Thiamine HCl 100 mg PO DAILY #30 tablet 06/04/19 Aspirin/Caffeine [Bc Powder Packet] 1 packet PO QIDP PRN 07/29/19 Propranolol [Inderal*] 40 mg PO DAILY 07/29/19 Sucralfate [Carafate*] 1 tab PO SEECOM 07/29/19 - Past Medical/Surgical History Has patient received pneumonia vaccine in the past: No Diabetic: No -: Chronic pancreatitis -: Fatty liver -: Alcohol abuse -: Tobacco abuse -: Gastrointestinal bleeding -: HTN -: tonsillectomy Psychosocial/ Personal History: Patient is single - Family History Father Notes: alcohol abuse with myocardial infarction Mother Notes: reports no medical history - Social History Smoking Status: Current every day smoker Alcohol use: No CD- Drugs: No Caffeine use: Yes Place of Residence: Home Review of Systems 10-point ROS is otherwise unremarkable Physical Examination - Vital Signs Temperature: 97.2 F Blood Pressure: 125/59 Pulse: 74 Respirations: 18 Pulse Ox (%): 99 - Physical Exam General: Alert, In no apparent distress, Oriented x3 HEENT: Atraumatic, PERRLA, Mucous membr. moist/pink, EOMI, Sclerae nonicteric Neck: Supple, 2+ carotid pulse no bruit, No LAD, Without JVD or thyroid abnormality Respiratory: Clear to auscultation bilaterally, Normal air movement Cardiovascular: Regular rate/rhythm, Normal S1 S2, No murmurs Gastrointestinal: Normal bowel sounds, Soft and benign, Non-distended, No tenderness Musculoskeletal: No clubbing, No swelling, No tenderness Integumentary: No rashes Neurological: Normal gait, Normal speech, Normal strength at 5/5 x4 extr, Normal tone, Sensation intact, Cranial nerves 3-12 intact, Normal affect Lymphatics: No axilla or inguinal lymphadenopathy - Studies Laboratory Data (last 24 hrs) 07/30/19 04:15: Sodium 145, Potassium 3.9, BUN 5 L, Creatinine 0.71, Glucose 94 , Total Bilirubin 0.3, AST 10 L, ALT 22, Alkaline Phosphatase 76, Triglycerides 88, Cholesterol 126, HDL Cholesterol 34 L, Cholesterol/HDL Ratio 3.71, Lipase 126 07/30/19 04:15: WBC 4.3 D, Hgb 12.0 L, Hct 35.7 L, Plt Count 106 L 07/29/19 19:25: Creatinine 0.90 07/29/19 19:25: WBC 5.7, Hgb 13.0 L, Hct 38.8 L, Plt Count 124 L 07/29/19 19:25: Sodium 143, Potassium 3.2 L, BUN 7, Creatinine 0.93, Glucose 105 , Total Bilirubin 0.3, AST 15, ALT 30, Alkaline Phosphatase 93, Lipase 130 Assessment & Plan - Problems (Diagnosis) (1) Lower GI bleeding Current Visit: Yes Status: Acute (2) Colitis Current Visit: No Status: Acute (3) Alcohol abuse Current Visit: No Status: Chronic - Plan 1. Continue with IV hydration and PPI twice daily 2. if fever may start antibiotics for colitis 3. Continue with pain control 4. NPO 5. GI consultation 6. patient will need either inpatient or outpatient colonoscopy ; will await for GI consultation 7. GI and DVT prophylaxis Discharge Plan: Home Plan to discharge in: Greater than 2 days - Advance Directives Does patient have a Living Will: No Does patient have a Durable POA for Healthcare: No - Code Status/Comfort Care Code Status Assessed: Yes Code Status: Full Code Critical Care: No Time Spent Managing PTS Care (In Minutes): 45
[2019-07-30] MEDS ORDERED: SODIUM CHLORIDE 0.9% 10ML INJ IV PRN (10:31)
[2019-07-30 12:00] LABS: Barbiturates NEGATIVE (NEGATIVE); Benzodiazepines NEGATIVE (NEGATIVE); Cocaine NEGATIVE (NEGATIVE); METHAMPHETAM NEGATIVE (NEGATIVE); Methadone NEGATIVE (NEGATIVE); Opiates POSITIVE (NEGATIVE); Phencyclidine NEGATIVE (NEGATIVE); THC Cannibis NEGATIVE (NEGATIVE)
[2019-07-30] MEDS ORDERED: CIPROFLOXACIN 400mg IV 400 MG/200 ML BAG IV ONE (13:14)
--- NOTE | 2019-07-30 13:19 | P.PN ---
Subjective Date of Service: 07/30/19 Primary Care Provider: None Chief Complaint: lower GI bleeding Subjective: Other (Patient appears improved. No significant nausea vomiting.) Physical Examination - Vital Signs Temperature: 97.7 F Blood Pressure: 132/65 Pulse: 78 Respirations: 16 Pulse Ox (%): 98 - Physical Exam General: Alert, In no apparent distress, Oriented x3, Cooperative HEENT: Atraumatic Neck: Supple Respiratory: Clear to auscultation bilaterally Cardiovascular: Normal pulses, Regular rate/rhythm Gastrointestinal: Normal bowel sounds, Soft and benign, Non-distended, Tenderness (Minimal pain noted to the abdomen) Musculoskeletal: No tenderness, No warmth Neurological: Normal speech, Normal strength at 5/5 x4 extr, Normal tone - Studies Laboratory Data (last 24 hrs) 07/30/19 04:15: Sodium 145, Potassium 3.9, BUN 5 L, Creatinine 0.71, Glucose 94 , Total Bilirubin 0.3, AST 10 L, ALT 22, Alkaline Phosphatase 76, Triglycerides 88, Cholesterol 126, HDL Cholesterol 34 L, Cholesterol/HDL Ratio 3.71, Lipase 126 07/30/19 04:15: WBC 4.3 D, Hgb 12.0 L, Hct 35.7 L, Plt Count 106 L 07/29/19 19:25: Creatinine 0.90 07/29/19 19:25: WBC 5.7, Hgb 13.0 L, Hct 38.8 L, Plt Count 124 L 07/29/19 19:25: Sodium 143, Potassium 3.2 L, BUN 7, Creatinine 0.93, Glucose 105 , Total Bilirubin 0.3, AST 15, ALT 30, Alkaline Phosphatase 93, Lipase 130 Medications List Reviewed: Yes Assessment & Plan Discharge Plan: Home Plan to discharge in: 24 Hours Physician Review Additional Text: Impression: Abdominal pain suspect recurrent colitis Rectal bleeding likely related to colitis GERD History of pancreatitis Anemia of chronic disease with iron deficiency Plan: Abdominal pain suspect recurrent colitis: Continue with IV fluids. Will provide medication for pain. Will start Cipro and Flagyl. Will check pro calcitonin. Case discussed with GI. Will start with a clear liquid diet then advance diet as tolerated. Likely discharge in the next 24 hr. Rectal bleeding likely related to colitis: Spoke with GI. Likely no need for endoscopy at this time. Will monitor bleeding and blood count. GERD: Will continue with medication History of pancreatitis: Lipase negative. Patient reports no alcohol use. Urine drug screen negative. Anemia of chronic disease with iron deficiency: Will monitor this closely. Patient will require iron supplementation at discharge. Time Spent Managing Pts Care (In Minutes): 55
[2019-07-30] MEDS: TRAMADOL HCL 50 MG TAB PO PRN (13:30)
[2019-07-30] MEDS: NACHLORIDE 0.45% 1,000 ML IV SCH (13:31)
[2019-07-30] MEDS: SUCRALFATE 1 GM TABLET PO SCH ×2 (16:47→20:14)
[2019-07-30] MEDS: METRONIDAZOLE 500mg IVPB 500 MG/100 ML BAG IV SCH (16:47)
--- NOTE | 2019-07-30 18:12 | RAD REPORT ---
EXAM DESCRIPTION: CT - Abdomen Pelvis Wo Contrast - 07/30/2019 5:55 pm CLINICAL HISTORY: Abdominal pain COMPARISON: July 22, 2019 TECHNIQUE: Computed axial tomography of the abdomen and pelvis was obtained. IV contrast was not req uested. Oral contrast was given All CT scans are performed using dose optimization technique as appropriate and may include automated exposure control or mA/KV adjustment according to patient size. FINDINGS: The evaluation of solid organs, and vessels is limited secondary to the lack of contrast administration. Small bilateral nonobstructing renal calculi The liver, pancreas and adrenals appear grossly normal. Spleen is mildly enlarged. The wall of the sigmoid colon appears mildly thickened Small to moderate hiatal hernia IMPRESSION: Small nonobstructing renal calculi Mild splenomegaly Apparent mild thickening of the wall of the sigmoid colon probably secondary to incomplete distention . A mild colitis can also have this appearance
[2019-07-30] MEDS: PANTOPRAZOLE 40 MG INJ IVP SCH (20:15)
[2019-07-31] MEDS: METRONIDAZOLE 500mg IVPB 500 MG/100 ML BAG IV SCH ×3 (00:25→16:54)
[2019-07-31] MEDS: NACHLORIDE 0.45% 1,000 ML IV SCH ×3 (00:26→20:00)
[2019-07-31] MEDS: MEPERIDINE HCL 50 MG/ML IV PRN ×2 (04:12→11:04)
[2019-07-31 05:19] LABS: Absolute Lymphocytes (CBC) 1.3 K/uL (0.7-4.9); Basophils % 0.8 % (0-1.3); Hematocrit 36.2 % (39.6-49.0); Lymphocytes % 28.4 % (15.3-44.8); MPV 8.1 fL (7.6-11.3); RBC Red Blood Cell Count 4.15 M/uL (4.33-5.43)
[2019-07-31 05:32] LABS: BUN Blood Urea Nitrogen 4 mg/dL (7-18); Bicarbonate 29 mmol/L (21-32); Glucose Level 101 mg/dL (74-106); Magnesium 1.9 mg/dL (1.8-2.4); Potassium 3.5 mmol/L (3.5-5.1); Sodium Level 145 mmol/L (136-145)
[2019-07-31] MEDS: SUCRALFATE 1 GM TABLET PO SCH ×4 (07:30→20:47)
[2019-07-31] MEDS ORDERED: MEPERIDINE HCL 25 MG/0.5 ML IV ONE (07:58)
[2019-07-31] MEDS: PANTOPRAZOLE 40 MG INJ IVP SCH ×2 (08:11→20:47)
[2019-07-31] MEDS: THIAMINE HCL 100 MG TABLET PO SCH (08:12)
[2019-07-31] MEDS: PROPRANOLOL HCL 40 MG TAB PO SCH (08:12)
--- NOTE | 2019-07-31 08:57 | P.PN ---
Date of Service: 07/30/19 notified patient regarding EGD in the morning. Patient is agreeable to procedure.
[2019-07-31] MEDS ORDERED: PANTOPRAZOLE 40MG TABLET PO SCH (09:00)
[2019-07-31] MEDS: ONDANSETRON 4 MG/2 ML VIAL IV PRN ×2 (11:04→16:55)
[2019-07-31] MEDS ORDERED: Ringers Lactate 1,000 ML IV ONE (12:08)
[2019-07-31] MEDS ORDERED: propofoL 200 MG/20 ML VIAL IV ONE (12:09)
[2019-07-31] MEDS ORDERED: LIDOCAINE 1% MPF 2 ML AMPULE ONE (12:10)
[2019-07-31] MEDS ORDERED: MEPERIDINE HCL 25 MG/0.5 ML IV PRN (12:36)
--- NOTE | 2019-07-31 12:39 | ENDO RPT ---
[address], [address] EGD PROCEDURE REPORT EXAM DATE: 07/31/2019 PATIENT NAME: Jonathan Gutierrez MR#: [id number] BIRTHDATE: 1985 ATTENDING: Leopoldo [address] STATUS: inpatient CAR ATTENDANT: Jeri Vega and Rosmery Pickering RN INDICATIONS: The patient is a 33 yr old Male here for an EGD due to mid epigastric abdominal pain, left upper quadrant abdominal pain, and nausea PROCEDURE PERFORMED: EGD with biopsy MEDICATIONS: Per Anesthesia. TOPICAL ANESTHETIC: none CONSENT: The patient understands the risks and benefits of the procedure and understands that these risks include, but are not limited to: sedation, allergic reaction, infection, perforation and/or bleeding. Alternative means of evaluation and treatment include, among others: physical exam, x-rays, and/or surgical intervention. The patient elects to proceed with this endoscopic procedure. DESCRIPTION OF PROCEDURE: During intra-op preparation period all mechanical medical equipment was checked for proper function. Hand hygiene and appropriate measures for infection prevention was taken. Procedure, possible complications, and alternatives including but not limited to the possibility of bleeding, perforation, tear, infection, sepsis, need for surgery, need for blood transfusion, and anesthesia related complications were explained to the patient. After the risks, benefits and alternatives of the procedure were thoroughly explained, Informed consent was verified, confirmed and timeout was successfully executed by the treatment team. The patient was placed in the left lateral position. The patient was anesthetized with topical anesthesia. Through the anesthetized oropharyngeal area, the scope was passed without any difficulty. The Pentax EG-[id number] ([id number]) endoscope was introduced through the mouth and advanced to the third portion of the duodenum. Retroflexed views revealed a large hiatal hernia. The gastroscope was then slowly withdrawn and removed. A large hiatal hernia was found Multiple erosions were found in the antrum. Multiple biopsies were obtained and sent to pathology. Mild gastritis was found in the body and the antrum of the stomach. Multiple biopsies were obtained and sent to pathology. ADVERSE EVENTS: There were no complications. IMPRESSIONS: 1. Large hiatal hernia 2. Multiple ( 10) erosions in the antrum 3. Mild gastritis in the body and the antrum of the stomach, s/p biopsies RECOMMENDATIONS: 1. await biopsy results 2. acid suppression therapy REPEAT EXAM: Leopoldo [address] Dr eSigned: Leopoldo Walsh Dr 07/31/2019 12:39 PM cc: Jayme Lam CPT CODES: ICD9 CODES: PATIENT NAME: Jonathan Gutierrez MR#: [id number]
[2019-07-31] MEDS ORDERED: BISACODYL E.C. 5 MG TAB PO ONE (12:41)
[2019-07-31] MEDS ORDERED: MAGNESIUM CITRATE 300 ML BOT PO ONE (13:00)
[2019-07-31] MEDS: HYDROCODONE/APAP 7.5/325 MG TAB PO PRN ×2 (13:06→20:47)
[2019-07-31] MEDS ORDERED: GOLYTELY 4000 ML PO ONE (14:00)
--- NOTE | 2019-07-31 14:05 | P.PN ---
Subjective Date of Service: 07/31/19 Primary Care Provider: None Chief Complaint: lower GI bleeding Subjective: Doing well Physical Examination - Vital Signs Temperature: 98.3 F Blood Pressure: 110/58 Pulse: 64 Respirations: 18 Pulse Ox (%): 100 - Physical Exam General: Alert, In no apparent distress, Oriented x3, Cooperative HEENT: Atraumatic Neck: Supple Respiratory: Clear to auscultation bilaterally, Normal air movement Cardiovascular: Normal pulses, Regular rate/rhythm Gastrointestinal: Normal bowel sounds, Soft and benign, Non-distended Neurological: Normal speech, Normal strength at 5/5 x4 extr, Normal tone - Studies Medications List Reviewed: Yes Assessment & Plan Discharge Plan: Home Plan to discharge in: 24 Hours Physician Review Additional Text: Impression: Abdominal pain suspect recurrent colitis Rectal bleeding likely related to colitis GERD status post EGD showing gastritis and mild erosions History of pancreatitis Anemia of chronic disease with iron deficiency Plan: Abdominal pain suspect recurrent colitis: CT scan reviewed. Case discussed at length with GI. Continue IV antibiotic therapy. GI plans for colonoscopy tomorrow to further evaluate. Await findings. Will continue with clear liquid diet. Likely discharge as early as tomorrow after colonoscopy. Rectal bleeding likely related to colitis: Spoke with GI. GI will perform colonoscopy to her further evaluate. Hemoglobin stable at this time. No need for transfusion. GERD status post EGD showing gastritis and mild erosions.: Status post EGD today. Gastritis noted erosion noted. Will continue with clear liquid diet. GI plans for colonoscopy. Will continue with PPI. History of pancreatitis: Lipase negative. Patient reports no alcohol use. Urine drug screen negative. Anemia of chronic disease with iron deficiency: Will monitor this closely. Patient will require iron supplementation at discharge. Time Spent Managing Pts Care (In Minutes): 55
[2019-07-31] MEDS: TRAMADOL HCL 50 MG TAB PO PRN (16:55)
[2019-07-31] MEDS: MEPERIDINE HCL 25 MG/0.5 ML IV PRN ×2 (18:51→22:50)
[2019-07-31] MEDS: TEMAZEPAM 15 MG CAP PO PRN (20:46)
[2019-08-01] MEDS: METRONIDAZOLE 500mg IVPB 500 MG/100 ML BAG IV SCH ×3 (00:29→16:48)
[2019-08-01] MEDS: ONDANSETRON 4 MG/2 ML VIAL IV PRN ×2 (00:29→11:01)
[2019-08-01] MEDS ORDERED: LORAZEPAM 1 MG TABLET PO ONE (01:21)
[2019-08-01] MEDS: MEPERIDINE HCL 25 MG/0.5 ML IV PRN ×3 (02:50→11:09)
[2019-08-01 05:46] LABS: Absolute Lymphocytes (CBC) 1.3 K/uL (0.7-4.9); Basophils % 0.9 % (0-1.3); Hematocrit 37.1 % (39.6-49.0); Lymphocytes % 33.1 % (15.3-44.8); RBC Red Blood Cell Count 4.29 M/uL (4.33-5.43)
[2019-08-01] MEDS: HYDROCODONE/APAP 7.5/325 MG TAB PO PRN ×3 (05:50→18:34)
[2019-08-01] MEDS: NACHLORIDE 0.45% 1,000 ML IV SCH ×2 (05:52→16:00)
[2019-08-01 06:05] LABS: BUN Blood Urea Nitrogen 3 mg/dL (7-18); Bicarbonate 24 mmol/L (21-32); Glucose Level 92 mg/dL (74-106); Magnesium 2.1 mg/dL (1.8-2.4); Potassium 3.4 mmol/L (3.5-5.1); Sodium Level 144 mmol/L (136-145)
[2019-08-01] MEDS: SUCRALFATE 1 GM TABLET PO SCH ×3 (07:30→16:49)
[2019-08-01] MEDS: PANTOPRAZOLE 40 MG INJ IVP SCH (08:00)
[2019-08-01] MEDS: PROPRANOLOL HCL 40 MG TAB PO SCH (08:09)
[2019-08-01] MEDS: THIAMINE HCL 100 MG TABLET PO SCH (08:09)
--- NOTE | 2019-08-01 09:33 | P.PN ---
Subjective Date of Service: 08/01/19 Primary Care Provider: None Chief Complaint: lower GI bleeding Subjective: Improving Physical Examination - Vital Signs Temperature: 97 F Blood Pressure: 132/68 Pulse: 79 Respirations: 18 Pulse Ox (%): 98 - Physical Exam General: Alert, In no apparent distress, Oriented x3, Cooperative HEENT: Atraumatic Neck: Supple Respiratory: Clear to auscultation bilaterally, Normal air movement Cardiovascular: Normal pulses, Regular rate/rhythm Gastrointestinal: Normal bowel sounds, Soft and benign, Non-distended, No tenderness, No masses, No rebound, No guarding Musculoskeletal: No erythema, No tenderness, No warmth Integumentary: No tenderness/swelling, No erythema, No warmth, No cyanosis Neurological: Normal speech, Normal strength at 5/5 x4 extr, Normal tone, Normal affect - Studies Medications List Reviewed: Yes Assessment & Plan Discharge Plan: Home Plan to discharge in: 24 Hours Physician Review Additional Text: Impression: Abdominal pain suspect recurrent colitis Rectal bleeding likely related to colitis GERD status post EGD showing large hiatal hernia, gastritis and mild erosions History of pancreatitis Anemia of chronic disease with iron deficiency Chronic abdominal pain Plan: Abdominal pain suspect recurrent colitis: CT scan reviewed. Patient has improved. Case discussed with GI at length. Patient will have colonoscopy today. Await results. Anticipate discharge later today after colonoscopy. Patient will need to continue with antibiotic therapy for a total of 10 days. Education provided. Rectal bleeding likely related to colitis: Continue with above plan of care. Anticipate discharge after colonoscopy today. GERD status post EGD showing large hiatal hernia, gastritis and mild erosions.: Patient had EGD yesterday. Large hiatal hernia, gastritis and mild erosions noted. Patient will require PPI at discharge. Dietary changes will be required in the future. History of pancreatitis: Lipase negative. Patient reports no alcohol use. Urine drug screen negative. Anemia of chronic disease with iron deficiency: Will monitor this closely. Patient will require iron supplementation at discharge. Chronic abdominal pain: Patient will require a limited supply of pain medication at discharge. Will recommend pain management referral as an outpatient. Time Spent Managing Pts Care (In Minutes): 55
[2019-08-01] MEDS ORDERED: CIPROFLOXACIN HCL 500 MG TAB PO SCH (12:30)
[2019-08-01] MEDS ORDERED: Ringers Lactate 1,000 ML IV ONE (13:20)
[2019-08-01 13:36] VITALS: O2SAT 100
--- NOTE | 2019-08-01 14:44 | ENDO RPT ---
[address], [address] COLONOSCOPY PROCEDURE REPORT EXAM DATE: 08/01/2019 PATIENT NAME: Jonathan Gutierrez MR #: [id number] BIRTHDATE: 1985 ATTENDING: Leopoldo Walsh Dr STATUS: inpatient [employer] COUNSELOR: Jeri Vega and Rosmery Pickering RN INDICATIONS: The patient is a 33 yr old Male here for a colonoscopy due to family history of colon cancer (brother at 37 y.o.) and abnormal CT of abdomen PROCEDURE PERFORMED: Colonoscopy MEDICATIONS: Per Anesthesia. ESTIMATED BLOOD LOSS: None CONSENT: The patient understands the risks and benefits of the procedure and understands that these risks include, but are not limited to: sedation, allergic reaction, infection, perforation and/or bleeding. Alternative means of evaluation and treatment include, among others: physical exam, x-rays, and/or surgical intervention. The patient elects to proceed with this endoscopic procedure. DESCRIPTION OF PROCEDURE: During intra-op preparation period all mechanical medical equipment was checked for proper function. Hand hygiene and appropriate measures for infection prevention was taken. Procedure, possible complications, alternatives including, but not limited to possibility of bleeding, perforation, tear, infection, sepsis, need for surgery, need for blood transfusion, were explained to the patient. After the risks, benefits and alternatives of the procedure were thoroughly explained, Informed consent was verified, confirmed and timeout was successfully executed by the treatment team. The patient was placed in the left lateral position. A digital rectal exam was performed and revealed no abnormalities of the rectum. After appropriate level of anesthesia, the scope was passed. The EC-[id number] ([id number]) endoscope was introduced through the anus and advanced to the cecum. The quality of the prep was poor. The instrument was then slowly withdrawn as the colon was fully examined. Scope withdrawal time was 7 minutes. COLON FINDINGS: Adherent overlying clot with uncertain underlying lesion (unable to remove clot with water jet) was found in the rectum 2 cm from the anal verge, s/p endoclip placement X1. Internal hemorrhoids were found. Retroflexed views revealed no abnormalities. The scope was then completely withdrawn from the patient and the procedure terminated. ADVERSE EVENTS: There were no complications. IMPRESSIONS: 1. Adherent overlying clot with uncertain underlying lesion (unable to remove clot with water jet) in the rectum 2 cm from the anal verge, s/p endoclip placement X1 2. Internal hemorrhoids 3. Intubation to cecum 4. Family history of colon cancer (brother at 37 y.o.) RECOMMENDATIONS: fiber rich diet RECALL: for Colonoscopy at 41 [address] eSigned: Leopoldo Walsh Dr 08/01/2019 2:43 PM cc: CPT CODES: ICD9 CODES: 569.49 Other specified disorders of rectum and anus PATIENT NAME: Jonatahn GutierrezDavis MR#: [id number]
[2019-08-01] MEDS ORDERED: LIDOCAINE 1% MPF 5 ML VIAL ONE (14:45)
[2019-08-01] MEDS ORDERED: propofoL 200 MG/20 ML VIAL IV ONE (14:45)
--- NOTE | 2019-08-01 15:32 | ENDO RPT ---
[address], [address] COLONOSCOPY PROCEDURE REPORT EXAM DATE: 08/01/2019 PATIENT NAME: Jonathan Gutierrez MR #: [id number] BIRTHDATE: 1985 ATTENDING: Leopoldo Walsh Dr STATUS: inpatient FORGER HELPER: Jeri Vega and Serena Maldonado RN INDICATIONS: The patient is a 33 yr old Male here for a colonoscopy due to hematochezia, abdominal pain, and abnormal CT of abdomen PROCEDURE PERFORMED: Colonoscopy with biopsy MEDICATIONS: Per Anesthesia. ESTIMATED BLOOD LOSS: None CONSENT: The patient understands the risks and benefits of the procedure and understands that these risks include, but are not limited to: sedation, allergic reaction, infection, perforation and/or bleeding. Alternative means of evaluation and treatment include, among others: physical exam, x-rays, and/or surgical intervention. The patient elects to proceed with this endoscopic procedure. DESCRIPTION OF PROCEDURE: During intra-op preparation period all mechanical medical equipment was checked for proper function. Hand hygiene and appropriate measures for infection prevention was taken. Procedure, possible complications, alternatives including, but not limited to possibility of bleeding, perforation, tear, infection, sepsis, need for surgery, need for blood transfusion, were explained to the patient. After the risks, benefits and alternatives of the procedure were thoroughly explained, Informed consent was verified, confirmed and timeout was successfully executed by the treatment team. The patient was placed in the left lateral position. A digital rectal exam was performed and revealed no abnormalities of the rectum. After appropriate level of anesthesia, the scope was passed. The [id number] ([id number]) endoscope was introduced through the anus and advanced to the terminal ileum which was intubated for a short distance. The quality of the prep was fair. The instrument was then slowly withdrawn as the colon was fully examined. Scope withdrawal time was 7 minutes. COLON FINDINGS: Random biopsies of the terminal ileum / right colon / left colon / rectum obtained. Moderate sized internal hemorrhoids were found. Retroflexed views revealed medium hemorrhoids. The scope was then completely withdrawn from the patient and the procedure terminated. ADVERSE EVENTS: There were no complications. IMPRESSIONS: 1. Random biopsies of the terminal ileum / right colon / left colon / rectum obtained 2. Moderate sized internal hemorrhoids 3. Intubation to terminal ileum RECOMMENDATIONS: 1. await biopsy results 2. hemorrhoidal hygiene 3. fiber rich diet RECALL: Leopoldo Walsh Dr eSigned: Leopoldo Walsh Dr 08/01/2019 3:31 PM cc: Jayme Lam D.O. CPT CODES: ICD9 CODES: PATIENT NAME: Jonathan Gutierrez MR#: [id number]
[2019-08-01] MEDS ORDERED: MEPERIDINE HCL 25 MG/0.5 ML ONE (15:34)
[2019-08-01] MEDS ORDERED: ONDANSETRON 4 MG/2 ML VIAL ONE (15:34)
--- NOTE | 2019-08-01 16:20 | P.DS ---
Admission Date: 07/30/19 Discharge Date: 08/01/19 Primary Care Provider: None Disposition: ROUTINE DISCHARGE Discharge Condition: GOOD Reason for Admission: lower GI bleeding Consultations: Gi-Dr Walsh Procedures: EGD: Large hiatal hernia, gastritis and mild erosions noted. Biopsies obtained. Colonoscopy: Hemorrhoids noted. Biopsies obtained. Medical Problem List: Abdominal pain suspect recurrent colitis Rectal bleeding likely related to colitis and hemorrhoids GERD status post EGD showing large hiatal hernia, gastritis and mild erosions History of pancreatitis Anemia of chronic disease with iron deficiency Chronic abdominal pain HTN Brief History of Present Illness: 33-year-old male presented to emergency room with abdominal pain and rectal bleeding. Patient was admitted for treatment of colitis. Patient with history of chronic abdominal pain, GERD. Hospital Course: Patient presented with abdominal pain secondary to recurrent sigmoid colitis. Patient was seen by GI. Patient responded to antibiotic therapy. Colonoscopy was performed. Colonoscopy only showed hemorrhoids. Biopsies obtained. At discharge patient will continue with Cipro 500 mg twice daily and Flagyl 500 mg 3 times a day for 7 days. Recommend follow up with GI to further monitor and address. Patient will need a follow up with GI to go over biopsy report. Will provide a limited supply of Tylenol #3 1 pill 3 times a day as needed for pain. Patient may require referral to a Pain Management for chronic pain. GI also evaluated upper abdominal pain. EGD performed. Patient found to have large hiatal hernia, multiple erosions 2 antrum and mild gastritis. Biopsies performed. GI recommends GERD diet. At discharge he will continue with Protonix 40 mg daily. Patient may also take care of state as directed. Lifestyle modification education provided. Alcohol cessation addressed in detail. Follow up with GI in 2-4 weeks. Patient with history of anemia likely iron deficiency. At discharge patient may continue with multi vitamin with iron. Recommend to recheck lab-CBC in 2-4 weeks to monitor his progress. Patient with history of chronic pancreatitis and chronic abdominal pain. Patient may require referral to pain management in the future to further evaluate. Patient will be given a limited supply of pain medication. He will need to establish care with pain management to continue medication. Patient with history of hypertension. Patient may continue with Propanol as directed. Vital Signs/Physical Exam: Temp Pulse Resp BP Pulse Ox 98.9 F 62 18 125/89 98 08/01/19 16:02 08/01/19 16:02 08/01/19 16:02 08/01/19 16:02 08/01/19 12:22 General: Alert, In no apparent distress, Oriented x3, Cooperative HEENT: Atraumatic Neck: Supple Respiratory: Clear to auscultation bilaterally, Normal air movement Cardiovascular: Normal pulses, Regular rate/rhythm Gastrointestinal: Normal bowel sounds, Soft and benign, Non-distended, No tenderness, No masses, No rebound, No guarding Musculoskeletal: No erythema, No tenderness, No warmth Integumentary: No tenderness/swelling, No erythema, No warmth, No cyanosis Neurological: Normal speech, Normal strength at 5/5 x4 extr, Normal tone, Normal affect Laboratory Data at Discharge: WBC 4.0 K/uL (4.3-10.9) L 08/01/19 05:35 Hgb 12.7 g/dL (13.6-17.9) L 08/01/19 05:35 Hct 37.1 % (39.6-49.0) L 08/01/19 05:35 Plt Count 119 K/uL (152-406) L 08/01/19 05:35 Sodium 144 mmol/L (136-145) 08/01/19 05:35 Potassium 3.4 mmol/L (3.5-5.1) L 08/01/19 05:35 BUN 3 mg/dL (7-18) L 08/01/19 05:35 Creatinine 0.72 mg/dL (0.55-1.3) 08/01/19 05:35 Glucose 92 mg/dL (74-106) 08/01/19 05:35 Magnesium 2.1 mg/dL (1.8-2.4) 08/01/19 05:35 Total Bilirubin 0.3 mg/dL (0.2-1.0) 07/30/19 04:15 AST 10 U/L (15-37) L 07/30/19 04:15 ALT 22 U/L (12-78) 07/30/19 04:15 Alkaline Phosphatase 76 U/L (45-117) 07/30/19 04:15 Triglycerides 88 mg/dL (<150) 07/30/19 04:15 Cholesterol 126 mg/dL (<200) 07/30/19 04:15 HDL Cholesterol 34 mg/dL (40-60) L 07/30/19 04:15 Cholesterol/HDL Ratio 3.71 07/30/19 04:15 Lipase 126 U/L (73-393) 07/30/19 04:15 Home Medications: Thiamine HCl 100 mg PO DAILY #30 tablet 06/04/19 Propranolol [Inderal*] 40 mg PO DAILY 07/29/19 Sucralfate [Carafate*] 1 tab PO SEECOM 07/29/19 Ciprofloxacin HCl [Cipro 500 MG Tablet] 500 mg PO BID #14 tab 08/01/19 Pantoprazole [Protonix Tab*] 40 mg PO DAILY #30 tab 08/01/19 metroNIDAZOLE [Flagyl] 500 mg PO Q8H #21 tablet 08/01/19 New Medications: Ciprofloxacin HCl [Cipro 500 MG Tablet] 500 mg PO BID #14 tab metroNIDAZOLE [Flagyl] 500 mg PO Q8H #21 tablet Pantoprazole [Protonix Tab*] 40 mg PO DAILY #30 tab Patient Discharge Instructions: 1. Recommend follow up with PCP to establish care and continue his current evaluation and treatment. 2. Patient presented with abdominal pain secondary to recurrent sigmoid colitis. Patient was seen by GI. Patient responded to antibiotic therapy. Colonoscopy was performed. Colonoscopy only showed hemorrhoids. Biopsies obtained. At discharge patient will continue with Cipro 500 mg twice daily and Flagyl 500 mg 3 times a day for 7 days. Recommend follow up with GI to further monitor and address. Patient will need a follow up with GI to go over biopsy report. Will provide a limited supply of Tylenol #3 1 pill 3 times a day as needed for pain. Patient may require referral to a Pain Management for chronic pain. 3. GI also evaluated upper abdominal pain. EGD performed. Patient found to have large hiatal hernia , multiple erosions 2 antrum and mild gastritis. Biopsies performed. GI recommends GERD diet. At discharge he will continue with Protonix 40 mg daily. Patient may also take care of state as directed. Lifestyle modification education provided. Alcohol cessation addressed in detail. Follow up with GI in 2-4 weeks. 4. Patient with history of anemia likely iron deficiency. At discharge patient may continue with multi vitamin with iron. Recommend to recheck lab-CBC in 2-4 weeks to monitor his progress. 5. Patient with history of chronic pancreatitis and chronic abdominal pain. Patient may require referral to pain management in the future to further evaluate. Patient will be given a limited supply of pain medication. He will need to establish care with pain management to continue medication. 6. Patient with history of hypertension. Patient may continue with Propanol as directed. Diet: gi soft Activity: Ad jose carlos Time spent managing pt's care (in minutes): 55
[2019-08-01] MEDS: TRAMADOL HCL 50 MG TAB PO PRN (16:55)
--- NOTE | 2019-08-01 21:05 | CON ---
Date of Consultation: 07/30/2019 Reason For Consultation: Hematochezia, colitis, abdominal pain, nausea. History Of Present Illness: The patient is a 33-year-old white male with repeat hospitalizations to the hospital with history of recurrent pancreatitis, fatty liver, alcohol and tobacco abuse, GI bleed in the past. The patient presented to the hospital with hematochezia. The patient states he is hav ing right and left lower quadrant pain as well as midepigastric left upper quadrant pain. His lipase on this admission is negative, though he has a history of recurrent pancreatitis. His CT scan shows possible colitis of the left colon. The patient comes in for further evaluation and care. The myranda ent states he has never had a colonoscopy before and is very interested in having that done. Past Medical History: Significant for recurrent pancreatitis/chronic pancreatitis, fatty liver disea se, alcohol and tobacco abuse, gastrointestinal bleed, hypertension, tonsillectomy. Medications: Include Protonix, thiamine, BC Powder, propranolol, Carafate. Allergies: NKDA. Social History: Single, has a 10-year-old daughter. Smokes a pack a day. No alcohol. Family History: Father of myocardial infarction at age of 40, and mother is alive and well, he reports. Review of Systems: The patient has hematochezia, right left lower quadrant pain, midepigastric left upper quadrant pain, nausea. The patient is very anxious. No depression noted. He denies any hematemesis, coffee-groun ds emesis, melena, hematuria, dysuria, polydipsia, hemoptysis, seizure, syncope, lower extremity joanne a, muscle aches, joint aches, backaches. Physical Examination: Vital Signs: The patient is 5 feet 11 inches, 259 pounds, BMI of 22.3. Has a temperature of 97.2 de grees Fahrenheit, pulse 74, respirations 16, blood pressure 125/59, O2 saturation 99%. General: Well-nourished, well-developed male, somewhat anxious, some hyperactive in bed. HEENT: Normocephalic, atraumatic. Anicteric. Pupils equal, round, and reactive to light. Extraocu lar movements are intact. Oropharynx is clear. Neck: Supple. No masses. Respirations: Clear to auscultation bilaterally. Cardiac: Regular rate and rhythm. Gastrointestinal: Positive bowel sounds. Soft, nondistended. Pain in the midepigastric left upper quadrant area. Some mild tenderness in the lower abdomen bilaterally. No peritoneal or Carreon sign. No rebound. Some possible mild guarding. Extremities: No clubbing, cyanosis, or edema. 2+ pulses. Neuro: Alert and oriented x3. Grossly nonfocal. 5/5 motor strength. Sensation intact to light geno ch. Laboratory Data: The patient has a white count is 4.3, hemoglobin 12.0 down from 13.0 yesterday, hem atocrit 36, MCV of 87, platelet count of 106 down from 124 yesterday, polys of 61%, lymphocytes 30%, monocytes 8%, eosinophils 1%. The patient has a sodium 145, potassium 3.9, chloride 113, bicarb 28, BUN of 5, creatinine of 0.7, glucose 94, calcium 8.3, total bilirubin of 0.3, AST of 10, ALT of 22, a lkaline phosphatase 76, total protein 6.3, albumin 3.5. Triglycerides 88, cholesterol 126, LDL 74, H DL 34. Lipase of 126, yesterday of 130, both normal. UA was negative except for 2+ blood. Toxicolo gy positive for opiates, otherwise negative. Alcohol level less than 3, negative. He had a CT of abdomen and pelvis that revealed mild thickening of the wall of the sigmoid colon plus secondary co mplete distention. Mild colitis could also have this appearance. Impression: 1.Hematochezia with right and left lower quadrant pain. 2.CT scan revealing possible colitis of the sigmoid colon. This could be artifact. 3.Midepigastric left upper quadrant pain with nausea, though lipase negative in this setting. The p atient has a history of recurrent pancreatitis in the past. No pancreatitis noted by lipase nor by C T of the abdomen and pelvis. 4.History of recurrent pancreatitis/chronic pancreatitis. 5.History of alcohol abuse, fatty liver disease, tobacco abuse, hypertension, headaches, and other a s per above. Recommendations: 1.Continue IV fluids, IV antibiotics. Await stool studies. 2.Colonoscopy plus-minus EGD as an inpatient and outpatient. JEFF/GABRIELA Voice ID: [id number] Report ID: [id number]
[2019-08-01 22:10] VITALS: BP 148/64; TEMP 97.8
== END 2019-08-01 20:45 | disposition home or self-care (01) | DRG 379 ==
LOC: ER 18:46 → OBSVTOIN 22:28 → INTOOBSV 22:28 → ERHOLD 22:28 → 4TH 23:14 → OBSVTOIN 07-30 08:12
PROVIDERS: ADMIT Hospitalist; ATTEND Family Medicine
PROC: 0DB78ZX Excision of Stomach, Pylorus, Via Natural or Artificial Opening Endoscopic, Diagnostic (ICD-10-PCS; 2019-07-31)
PROC: 0DB68ZX Excision of Stomach, Via Natural or Artificial Opening Endoscopic, Diagnostic (ICD-10-PCS; principal; 2019-07-31 14:30)
PROC: 0DBB8ZX Excision of Ileum, Via Natural or Artificial Opening Endoscopic, Diagnostic (ICD-10-PCS; 2019-08-01)
PROC: 0DBP8ZX Excision of Rectum, Via Natural or Artificial Opening Endoscopic, Diagnostic (ICD-10-PCS; 2019-08-01)
PROC: 0DBF8ZX Excision of Right Large Intestine, Via Natural or Artificial Opening Endoscopic, Diagnostic (ICD-10-PCS; 2019-08-01)
PROC: 0DBG8ZX Excision of Left Large Intestine, Via Natural or Artificial Opening Endoscopic, Diagnostic (ICD-10-PCS; 2019-08-01)
DX: K29.71 Gastritis, unspecified, with bleeding (principal); K25.4 Chronic or unspecified gastric ulcer with hemorrhage; K52.9 Noninfective gastroenteritis and colitis, unspecified; K92.1 Melena; I10 Essential (primary) hypertension; F10.10 Alcohol abuse, uncomplicated; D63.8 Anemia in other chronic diseases classified elsewhere; D50.9 Iron deficiency anemia, unspecified; K21.9 Gastro-esophageal reflux disease without esophagitis; K44.9 Diaphragmatic hernia without obstruction or gangrene; K64.8 Other hemorrhoids
CPT/HCPCS: 36415; 74176; 80048; 80053; 80061; 80076; 80307; 80320; 81003; 83690; 83735; 84145; 85025; 88305; 88312; 93005; 96361; 96365; 96366; 96368; 96375; 99285; C9113; G0378; J0744; J2001; J2175; J2405; J2704; J7030; J7120

== ENCOUNTER 2019-09-26 18:53 | Inpatient (IN) | payer SELFPAY ==
--- OUTSIDE RECORDS SUMMARY | 2019-09-26 19:02 | XMS REPORT ---
:1985 [facility] Address [address] [place] [address] Dr. Romano [address] [place] [id number] Care Team Providers Name Role Phone DMITRI [...] Comments Text Results Atomic Results Result Comments RAPID DRUG SCREEN, URINE 2019-09-04 14:56:00 Test Item Value Reference Range Comments BARBITURATE URINE (BEAKER) (test tlqu=247) Negative Negative BENZODIAZEPINE SCREEN URINE (BEAKER) (test izrj=758) Positive Negative COCAINE (METAB.) SCREEN (BEAKER) (test gazq=7459) Negative Negative METHADONE SCREEN (BEAKER) (test hshv=9201) Negative Negative OPIATE SCREEN URINE (BEAKER) (test gvsw=015) Negative Negative CANNABINOID SCREEN URINE (BEAKER) (test dboa=138) Positive Negative AMPH/METHAMPH SCREEN (BEAKER) (test isxw=2431) Positive Negative PHENCYCLIDINE SCREEN URINE (BEAKER) (test jpvy=846) Negative Negative Per radiation therapy technologist's recommendations, acceptable pH range for urine drug screen testing is 3 to 11. pHtesting not performed on this urine sample. While physiologically incompatible, the effect on the results of testing urine outside of pH 3-11 is unknown.DRUG CUTOFF CONC.Cocaine 300 ng /mL Cannabinoid 50 ng/mLBenzodiazepine 200 ng/mLBarbiturate 200 ng/mLPhencyclidine 25 ng/mLOpiate 300 ng/ mLMethadone 300 ng/mLAmphetamine/ 1000 ng/mL MethamphetamineThis assay provides an unconfirmed qualitative test result for the clinical management of patients in emergency situations. Chain of custody not maintained. Some jpvl-ujz-gqqgeox medications, as well as adulterants, may cause inaccurate results. Clinicalcorrelation should be applied. A more comprehensive drug screen or confirmation of a detected drug may be performed upon request.[id number] 03:05:00 Test Item Value Reference Range Comments LIPASE (BEAKER) (test gzlf=427) 257 U/L 8-78 BASIC METABOLIC [id number] 03:05:00 Test Item Value Reference Range Comments SODIUM (BEAKER) (test 136 meq/L 136-145 kqlm=236) POTASSIUM (BEAKER) (test 4.5 meq/L 3.5-5.1 Specimen slightly apui=977) hemolyzed CHLORIDE (BEAKER) (test 104 meq/L 98-107 tzsu=460) CO2 (BEAKER) (test 25 meq/L 22-29 odig=236) BLOOD UREA NITROGEN 5 mg/dL 7-21 (BEAKER) (test apjj=831) CREATININE (BEAKER) (test 0.57 mg/dL 0.57-1.25 Specimen slightly jonn=739) hemolyzed GLUCOSE RANDOM (BEAKER) 87 mg/dL 70-105 (test klru=707) CALCIUM (BEAKER) (test 8.4 mg/dL 8.4-10.2 cgsn=530) EGFR (BEAKER) (test 166 mL/min/1.73 sq m ESTIMATED GFR IS NOT aulq=3539) ACCURATE CREATININE CLEARANCE IN PREDICTING GLOMERULAR FILTRATION RATE. ESTIMATED GFR IS NOT APPLICABLE FOR DIALYSIS PATIENTS. BASIC METABOLIC [id number] 04:41:00 Test Item Value Reference Range Comments SODIUM (BEAKER) (test 134 meq/L 136-145 hxhq=096) POTASSIUM (BEAKER) (test 3.9 meq/L 3.5-5.1 Specimen slightly kpal=806) hemolyzed CHLORIDE (BEAKER) (test 102 meq/L 98-107 ywul=285) CO2 (BEAKER) (test 26 meq/L 22-29 ehwe=816) BLOOD UREA NITROGEN 3 mg/dL 7-21 (BEAKER) (test juqq=022) CREATININE (BEAKER) (test 0.50 mg/dL 0.57-1.25 Specimen slightly lqvg=906) hemolyzed GLUCOSE RANDOM (BEAKER) 95 mg/dL 70-105 (test egjc=086) CALCIUM (BEAKER) (test 7.9 mg/dL 8.4-10.2 ezer=061) EGFR (BEAKER) (test 193 mL/min/1.73 sq m ESTIMATED GFR IS NOT riwj=4131) ACCURATE CREATININE CLEARANCE IN PREDICTING GLOMERULAR FILTRATION RATE. ESTIMATED GFR IS NOT APPLICABLE FOR DIALYSIS PATIENTS. [id number] 04:31:00 Test Item Value Reference Range Comments LIPASE (BEAKER) (test ernj=117) 334 U/L 8-78 TROPONIN [id number] 03:00:00 Test Item Value Reference Range Comments TROPONIN I (BEAKER) (test yxrs=888) < ng/mL 0.00-0.03 Troponin I (TnI) levels [...] failure, acidosis, acute neurological disease, and persistent tachyarrhythmia.[id number] 02:54:00 Test Item Value Reference Range Comments MAGNESIUM (BEAKER) (test 1.9 mg/dL 1.6-2.6 Specimen slightly hemolyzed deyi=181) BASIC METABOLIC [id number] 02:54:00 Test Item Value Reference Range Comments SODIUM (BEAKER) (test 136 meq/L 136-145 jdxv=097) POTASSIUM (BEAKER) (test 3.8 meq/L 3.5-5.1 Specimen slightly geaa=439) hemolyzed CHLORIDE (BEAKER) (test 100 meq/L 98-107 cphm=967) CO2 (BEAKER) (test 28 meq/L 22-29 sjon=079) BLOOD UREA NITROGEN 3 mg/dL 7-21 (BEAKER) (test ihyd=710) CREATININE (BEAKER) (test 0.56 mg/dL 0.57-1.25 Specimen slightly lcde=394) hemolyzed GLUCOSE RANDOM (BEAKER) 111 mg/dL 70-105 (test ueye=607) CALCIUM (BEAKER) (test 8.3 mg/dL 8.4-10.2 ehfl=417) EGFR (BEAKER) (test 169 mL/min/1.73 sq m ESTIMATED GFR IS NOT uoww=6418) ACCURATE CREATININE CLEARANCE IN PREDICTING GLOMERULAR FILTRATION RATE. ESTIMATED GFR IS NOT APPLICABLE FOR DIALYSIS PATIENTS. [id number] 02:54:00 Test Item Value Reference Range Comments LIPASE (BEAKER) (test rfui=742) 755 U/L 8-78 CBC W/PLT COUNT & AUTO [id number] 02:33:00 Test Item Value Reference Range Comments WHITE BLOOD CELL COUNT (BEAKER) (test hjof=607) 5.7 K/ L 3.5-10.5 RED BLOOD CELL COUNT (BEAKER) (test dzsy=292) 3.90 M/ L 4.63-6.08 HEMOGLOBIN (BEAKER) (test iuqd=700) 12.0 GM/DL 13.7-17.5 HEMATOCRIT (BEAKER) (test iovl=193) 36.5 % 40.1-51.0 MEAN CORPUSCULAR VOLUME (BEAKER) (test awlm=820) 93.6 fL 79.0-92.2 MEAN CORPUSCULAR HEMOGLOBIN (BEAKER) (test 30.8 pg 25.7-32.2 swml=305) MEAN CORPUSCULAR HEMOGLOBIN CONC (BEAKER) (test 32.9 GM/DL 32.3-36.5 wpzv=942) RED CELL DISTRIBUTION WIDTH (BEAKER) (test 13.6 % 11.6-14.4 kpxi=770) PLATELET COUNT (BEAKER) (test pgfw=116) 155 K/CU MM 150-450 MEAN PLATELET VOLUME (BEAKER) (test mvuf=704) 9.4 fL 9.4-12.4 NUCLEATED RED BLOOD CELLS (BEAKER) (test 0 /100 WBC 0-0 krir=151) NEUTROPHILS RELATIVE PERCENT (BEAKER) (test 70 % lyhd=651) LYMPHOCYTES RELATIVE PERCENT (BEAKER) (test 19 % iihn=297) MONOCYTES RELATIVE PERCENT (BEAKER) (test 8 % wysp=503) EOSINOPHILS RELATIVE PERCENT (BEAKER) (test 2 % csuu=540) BASOPHILS RELATIVE PERCENT (BEAKER) (test 1 % deab=184) NEUTROPHILS ABSOLUTE COUNT (BEAKER) (test 4.03 K/ L 1.78-5.38 ztjd=356) LYMPHOCYTES ABSOLUTE COUNT (BEAKER) (test 1.07 K/ L 1.32-3.57 umbx=508) MONOCYTES ABSOLUTE COUNT (BEAKER) (test 0.45 K/ L 0.30-0.82 zgwl=284) EOSINOPHILS ABSOLUTE COUNT (BEAKER) (test 0.12 K/ L 0.04-0.54 akiw=578) BASOPHILS ABSOLUTE COUNT (BEAKER) (test 0.05 K/ L 0.01-0.08 mvpm=249) IMMATURE GRANULOCYTES-RELATIVE PERCENT (BEAKER) 0 % 0-1 (test ueej=5413) RAD, CHEST, 1 VIEW, NON [id number] 02:26:00Reason for exam:->pleuritic chest painShould this be [...] To [facility] MDReport Verified Date/Time: 03/22/2019 02:26:18 [id number] 08:35:00 Test Item Value Reference Range Comments MAGNESIUM (BEAKER) (test 1.4 mg/dL 1.6-2.6 Specimen slightly hemolyzed moaq=900) BASIC METABOLIC [id number] 08:35:00 Test Item Value Reference Range Comments SODIUM (BEAKER) (test 138 meq/L 136-145 urbn=275) POTASSIUM (BEAKER) (test 3.7 meq/L 3.5-5.1 Specimen slightly evsz=100) hemolyzed CHLORIDE (BEAKER) (test 102 meq/L 98-107 pzxi=962) CO2 (BEAKER) (test 23 meq/L 22-29 yhre=152) BLOOD UREA NITROGEN 4 mg/dL 7-21 (BEAKER) (test nmrk=352) CREATININE (BEAKER) (test 0.48 mg/dL 0.57-1.25 Specimen slightly kofd=309) hemolyzed GLUCOSE RANDOM (BEAKER) 53 mg/dL 70-105 (test zrxm=147) CALCIUM (BEAKER) (test 8.1 mg/dL 8.4-10.2 yxrm=538) EGFR (BEAKER) (test 202 mL/min/1.73 sq m ESTIMATED GFR IS NOT czeq=7128) ACCURATE CREATININE CLEARANCE IN PREDICTING GLOMERULAR FILTRATION RATE. ESTIMATED GFR IS NOT APPLICABLE FOR DIALYSIS PATIENTS. HEPATIC FUNCTION [id number] 08:35:00 Test Item Value Reference Range Comments TOTAL PROTEIN (BEAKER) (test 6.2 gm/dL 6.0-8.3 Specimen slightly hemolyzed baro=734) ALBUMIN (BEAKER) (test 2.7 g/dL 3.5-5.0 Specimen slightly hemolyzed axdk=2389) BILIRUBIN TOTAL (BEAKER) (test 0.5 mg/dL 0.2-1.2 Specimen slightly hemolyzed uhxn=582) BILIRUBIN DIRECT (BEAKER) (test 0.3 mg/dL 0.1-0.5 Specimen slightly hemolyzed afrm=157) ALKALINE PHOSPHATASE (BEAKER) 151 U/L 40-150 (test admr=490) AST (SGOT) (BEAKER) (test 64 U/L 5-34 Specimen slightly hemolyzed mtfz=363) ALT (SGPT) (BEAKER) (test 21 U/L 6-55 Specimen slightly hemolyzed ntil=714) [id number] 08:35:00 Test Item Value Reference Range Comments LIPASE (BEAKER) (test fxuz=341) 242 U/L 8-78 CBC W/PLT COUNT & AUTO [id number] 06:25:00 Test Item Value Reference Range Comments WHITE BLOOD CELL COUNT (BEAKER) (test qtdh=824) 4.2 K/ L 3.5-10.5 RED BLOOD CELL COUNT (BEAKER) (test vrkk=255) 4.14 M/ L 4.63-6.08 HEMOGLOBIN (BEAKER) (test dldm=596) 12.7 GM/DL 13.7-17.5 HEMATOCRIT (BEAKER) (test qyjp=539) 39.8 % 40.1-51.0 MEAN CORPUSCULAR VOLUME (BEAKER) (test uqqo=974) 96.1 fL 79.0-92.2 MEAN CORPUSCULAR HEMOGLOBIN (BEAKER) (test 30.7 pg 25.7-32.2 ieuv=430) MEAN CORPUSCULAR HEMOGLOBIN CONC (BEAKER) (test 31.9 GM/DL 32.3-36.5 rfpl=646) RED CELL DISTRIBUTION WIDTH (BEAKER) (test 13.5 % 11.6-14.4 oorm=259) PLATELET COUNT (BEAKER) (test ftxd=759) 186 K/CU MM 150-450 MEAN PLATELET VOLUME (BEAKER) (test vyvj=765) 10.9 fL 9.4-12.4 NUCLEATED RED BLOOD CELLS (BEAKER) (test 0 /100 WBC 0-0 afku=587) NEUTROPHILS RELATIVE PERCENT (BEAKER) (test 55 % tqzp=680) LYMPHOCYTES RELATIVE PERCENT (BEAKER) (test 31 % gyfs=213) MONOCYTES RELATIVE PERCENT (BEAKER) (test 8 % rwyf=382) EOSINOPHILS RELATIVE PERCENT (BEAKER) (test 5 % piwc=833) BASOPHILS RELATIVE PERCENT (BEAKER) (test 1 % elbx=628) NEUTROPHILS ABSOLUTE COUNT (BEAKER) (test 2.28 K/ L 1.78-5.38 icpg=969) LYMPHOCYTES ABSOLUTE COUNT (BEAKER) (test 1.28 K/ L 1.32-3.57 vcnl=605) MONOCYTES ABSOLUTE COUNT (BEAKER) (test 0.35 K/ L 0.30-0.82 jvpc=092) EOSINOPHILS ABSOLUTE COUNT (BEAKER) (test 0.21 K/ L 0.04-0.54 opfl=010) BASOPHILS ABSOLUTE COUNT (BEAKER) (test 0.05 K/ L 0.01-0.08 icsf=222) IMMATURE GRANULOCYTES-RELATIVE PERCENT (BEAKER) 0 % 0-1 (test iqyp=0365) [id number] 07:42:00 Test Item Value Reference Range Comments MAGNESIUM (BEAKER) (test nzvj=591) 1.5 mg/dL 1.6-2.6 BASIC METABOLIC [id number] 07:42:00 Test Item Value Reference Range Comments SODIUM (BEAKER) (test 140 meq/L 136-145 hkxv=895) POTASSIUM (BEAKER) (test 3.3 meq/L 3.5-5.1 bewq=358) CHLORIDE (BEAKER) (test 106 meq/L 98-107 jkhz=119) CO2 (BEAKER) (test 27 meq/L 22-29 lyat=664) BLOOD UREA NITROGEN 6 mg/dL 7-21 (BEAKER) (test uygx=781) CREATININE (BEAKER) (test 0.53 mg/dL 0.57-1.25 xhtp=212) GLUCOSE RANDOM (BEAKER) 81 mg/dL 70-105 (test dnxe=388) CALCIUM (BEAKER) (test 8.2 mg/dL 8.4-10.2 ohge=737) EGFR (BEAKER) (test 180 mL/min/1.73 sq m ESTIMATED GFR IS NOT blek=9997) ACCURATE CREATININE CLEARANCE IN PREDICTING GLOMERULAR FILTRATION RATE. ESTIMATED GFR IS NOT APPLICABLE FOR DIALYSIS PATIENTS. LIPID [id number] 07:42:00 Test Item Value Reference Range Comments TRIGLYCERIDES (BEAKER) (test bjoh=838) 63 mg/dL CHOLESTEROL (BEAKER) (test gdck=331) 101 mg/dL HDL CHOLESTEROL (BEAKER) (test onhv=226) 20 mg/dL LDL CHOLESTEROL CALCULATED (BEAKER) (test 68 mg/dL skxi=730) Triglyceride Reference Range: Low Risk <150 Borderline 150- 199 High Risk 200-499 Very High Risk >=500Cholesterol Reference Range: Low Risk <200 Borderline 200-239 High Risk > 240HDL Cholesterol Reference Range: Low Risk >=60 High Risk <40LDL Cholesterol Reference Range: Optimal <100 Near Optimal 100-129 Borderline 130-159 High 160-189 Very High >=190HEPATIC FUNCTION [id number] 07:42:00 Test Item Value Reference Range Comments TOTAL PROTEIN (BEAKER) (test aenx=353) 6.1 gm/dL 6.0-8.3 ALBUMIN (BEAKER) (test fhvr=4051) 2.7 g/dL 3.5-5.0 BILIRUBIN TOTAL (BEAKER) (test xenu=939) 0.6 mg/dL 0.2-1.2 BILIRUBIN DIRECT (BEAKER) (test wnsf=573) 0.4 mg/dL 0.1-0.5 ALKALINE PHOSPHATASE (BEAKER) (test uzli=370) 157 U/L 40-150 AST (SGOT) (BEAKER) (test kjbi=024) 58 U/L 5-34 ALT (SGPT) (BEAKER) (test dcsd=776) 21 U/L 6-55 CBC W/PLT COUNT & AUTO [id number] 05:47:00 Test Item Value Reference Range Comments WHITE BLOOD CELL COUNT (BEAKER) (test tjbr=255) 4.3 K/ L 3.5-10.5 RED BLOOD CELL COUNT (BEAKER) (test qofh=979) 3.66 M/ L 4.63-6.08 HEMOGLOBIN (BEAKER) (test fvxs=778) 11.4 GM/DL 13.7-17.5 HEMATOCRIT (BEAKER) (test uulk=126) 35.8 % 40.1-51.0 MEAN CORPUSCULAR VOLUME (BEAKER) (test scsg=754) 97.8 fL 79.0-92.2 MEAN CORPUSCULAR HEMOGLOBIN (BEAKER) (test 31.1 pg 25.7-32.2 lucn=264) MEAN CORPUSCULAR HEMOGLOBIN CONC (BEAKER) (test 31.8 GM/DL 32.3-36.5 otkr=964) RED CELL DISTRIBUTION WIDTH (BEAKER) (test 14.2 % 11.6-14.4 ysxj=957) PLATELET COUNT (BEAKER) (test ogfs=080) 170 K/CU MM 150-450 MEAN PLATELET VOLUME (BEAKER) (test smlz=081) 9.9 fL 9.4-12.4 NUCLEATED RED BLOOD CELLS (BEAKER) (test 0 /100 WBC 0-0 rywt=085) NEUTROPHILS RELATIVE PERCENT (BEAKER) (test 55 % otgq=716) LYMPHOCYTES RELATIVE PERCENT (BEAKER) (test 30 % lqos=403) MONOCYTES RELATIVE PERCENT (BEAKER) (test 10 % qykj=933) EOSINOPHILS RELATIVE PERCENT (BEAKER) (test 4 % zkwx=753) BASOPHILS RELATIVE PERCENT (BEAKER) (test 1 % vbew=887) NEUTROPHILS ABSOLUTE COUNT (BEAKER) (test 2.36 K/ L 1.78-5.38 bmmw=382) LYMPHOCYTES ABSOLUTE COUNT (BEAKER) (test 1.30 K/ L 1.32-3.57 auif=215) MONOCYTES ABSOLUTE COUNT (BEAKER) (test 0.41 K/ L 0.30-0.82 towt=027) EOSINOPHILS ABSOLUTE COUNT (BEAKER) (test 0.18 K/ L 0.04-0.54 dplf=358) BASOPHILS ABSOLUTE COUNT (BEAKER) (test 0.03 K/ L 0.01-0.08 ekvc=894) IMMATURE GRANULOCYTES-RELATIVE PERCENT (BEAKER) 1 % 0-1 (test cgms=8365) BASIC METABOLIC [id number] 23:23:00 Test Item Value Reference Range Comments SODIUM (BEAKER) (test 139 meq/L 136-145 xvtc=226) POTASSIUM (BEAKER) (test 3.1 meq/L 3.5-5.1 qhcz=608) CHLORIDE (BEAKER) (test 103 meq/L 98-107 zmvx=555) CO2 (BEAKER) (test 28 meq/L 22-29 fmwa=024) BLOOD UREA NITROGEN 8 mg/dL 7-21 (BEAKER) (test byao=406) CREATININE (BEAKER) (test 0.60 mg/dL 0.57-1.25 wtor=953) GLUCOSE RANDOM (BEAKER) 92 mg/dL 70-105 (test wmye=341) CALCIUM (BEAKER) (test 8.6 mg/dL 8.4-10.2 cyrn=053) EGFR (BEAKER) (test 156 mL/min/1.73 sq m ESTIMATED GFR IS NOT soyo=8378) ACCURATE CREATININE CLEARANCE IN PREDICTING GLOMERULAR FILTRATION RATE. ESTIMATED GFR IS NOT APPLICABLE FOR DIALYSIS PATIENTS. HEPATIC FUNCTION [id number] 23:23:00 Test Item Value Reference Range Comments TOTAL PROTEIN (BEAKER) (test ngao=297) 7.1 gm/dL 6.0-8.3 ALBUMIN (BEAKER) (test gkfc=1662) 3.2 g/dL 3.5-5.0 BILIRUBIN TOTAL (BEAKER) (test omvx=243) 0.5 mg/dL 0.2-1.2 BILIRUBIN DIRECT (BEAKER) (test upcb=687) 0.4 mg/dL 0.1-0.5 ALKALINE PHOSPHATASE (BEAKER) (test cbrf=777) 187 U/L 40-150 AST (SGOT) (BEAKER) (test kohn=603) 62 U/L 5-34 ALT (SGPT) (BEAKER) (test mosi=953) 24 U/L 6-55 [id number] 22:57:00 Test Item Value Reference Range Comments LIPASE (BEAKER) (test fwki=433) 957 U/L 8-78 [id number] 22:57:00 Test Item Value Reference Range Comments AMYLASE (BEAKER) (test wwby=429) 391 U/L 25-125 [id number] 22:56:00 Test Item Value Reference Range Comments PROTIME (BEAKER) (test wirr=226) 15.8 seconds 11.9-14.2 INR (BEAKER) (test vqmz=116) 1.3 <=5.9 PARTIAL THROMBOPLASTIN TIME (BEAKER) (test 30.9 seconds 22.5-36.0 fklb=085) Effective 12/11/2018: PT Reference Range ChangeNew: 11.9-14.2 Previous: 11.7- 14.7RECOMMENDED COUMADIN/WARFARIN INR THERAPY RANGESSTANDARD DOSE: 2.0-3.0 Includes: PROPHYLAXIS for venous thrombosis, systemic embolization; TREATMENT for venous thrombosis and/or pulmonary embolus.HIGH RISK: Target INR is2.5-3.5 for patients wiht mechanical heart valves.CBC W/PLT COUNT & AUTO [id number] 22:41:00 Test Item Value Reference Range Comments WHITE BLOOD CELL COUNT (BEAKER) (test ufvl=079) 6.4 K/ L 3.5-10.5 RED BLOOD CELL COUNT (BEAKER) (test vtbv=107) 3.99 M/ L 4.63-6.08 HEMOGLOBIN (BEAKER) (test rxli=432) 12.6 GM/DL 13.7-17.5 HEMATOCRIT (BEAKER) (test iiyu=727) 39.0 % 40.1-51.0 MEAN CORPUSCULAR VOLUME (BEAKER) (test bhsu=163) 97.7 fL 79.0-92.2 MEAN CORPUSCULAR HEMOGLOBIN (BEAKER) (test 31.6 pg 25.7-32.2 sjqv=523) MEAN CORPUSCULAR HEMOGLOBIN CONC (BEAKER) (test 32.3 GM/DL 32.3-36.5 chfi=652) RED CELL DISTRIBUTION WIDTH (BEAKER) (test 14.1 % 11.6-14.4 ytlu=238) PLATELET COUNT (BEAKER) (test lnag=047) 187 K/CU MM 150-450 MEAN PLATELET VOLUME (BEAKER) (test vnzq=381) 9.3 fL 9.4-12.4 NUCLEATED RED BLOOD CELLS (BEAKER) (test 0 /100 WBC 0-0 jlka=901) NEUTROPHILS RELATIVE PERCENT (BEAKER) (test 68 % fbic=086) LYMPHOCYTES RELATIVE PERCENT (BEAKER) (test 19 % vqhv=684) MONOCYTES RELATIVE PERCENT (BEAKER) (test 10 % zsrf=003) EOSINOPHILS RELATIVE PERCENT (BEAKER) (test 2 % sxmo=681) BASOPHILS RELATIVE PERCENT (BEAKER) (test 1 % qsyf=054) NEUTROPHILS ABSOLUTE COUNT (BEAKER) (test 4.31 K/ L 1.78-5.38 rykh=353) LYMPHOCYTES ABSOLUTE COUNT (BEAKER) (test 1.21 K/ L 1.32-3.57 futd=676) MONOCYTES ABSOLUTE COUNT (BEAKER) (test 0.65 K/ L 0.30-0.82 fnyv=597) EOSINOPHILS ABSOLUTE COUNT (BEAKER) (test 0.14 K/ L 0.04-0.54 wius=141) BASOPHILS ABSOLUTE COUNT (BEAKER) (test 0.04 K/ L 0.01-0.08 jzum=672) IMMATURE GRANULOCYTES-RELATIVE PERCENT (BEAKER) 0 % 0-1 (test ryzy=7251) COMPREHENSIVE METABOLIC [id number] 06:44:00 Test Item Value Reference Range Comments TOTAL PROTEIN (BEAKER) 6.2 gm/dL 6.0-8.3 (test ycra=735) ALBUMIN (BEAKER) (test 2.7 g/dL 3.5-5.0 zqww=6845) ALKALINE PHOSPHATASE 195 U/L 40-150 (BEAKER) (test oqfw=779) BILIRUBIN TOTAL (BEAKER) 0.7 mg/dL 0.2-1.2 (test jave=686) SODIUM (BEAKER) (test 138 meq/L 136-145 mnid=972) POTASSIUM (BEAKER) (test 3.6 meq/L 3.5-5.1 oyri=444) CHLORIDE (BEAKER) (test 102 meq/L 98-107 mgnq=639) CO2 (BEAKER) (test 28 meq/L 22-29 fxhs=877) BLOOD UREA NITROGEN 2 mg/dL 7-21 (BEAKER) (test hllu=785) CREATININE (BEAKER) (test 0.52 mg/dL 0.57-1.25 xffg=828) GLUCOSE RANDOM (BEAKER) 103 mg/dL 70-105 (test cyrl=220) CALCIUM (BEAKER) (test 8.5 mg/dL 8.4-10.2 jgpg=106) AST (SGOT) (BEAKER) (test 67 U/L 5-34 byvk=944) ALT (SGPT) (BEAKER) (test 31 U/L 6-55 gdhf=627) EGFR (BEAKER) (test 184 mL/min/1.73 sq ESTIMATED GFR IS NOT vybx=2246) m ACCURATE CREATININE CLEARANCE IN PREDICTING GLOMERULAR FILTRATION RATE. ESTIMATED GFR IS NOT APPLICABLE FOR DIALYSIS PATIENTS. CBC W/PLT COUNT & AUTO [id number] 06:09:00 Test Item Value Reference Range Comments WHITE BLOOD CELL COUNT (BEAKER) (test iarn=641) 4.0 K/ L 3.5-10.5 RED BLOOD CELL COUNT (BEAKER) (test wouy=260) 3.23 M/ L 4.63-6.08 HEMOGLOBIN (BEAKER) (test spwu=065) 10.6 GM/DL 13.7-17.5 HEMATOCRIT (BEAKER) (test sgib=877) 33.2 % 40.1-51.0 MEAN CORPUSCULAR VOLUME (BEAKER) (test nlir=492) 102.8 fL 79.0-92.2 MEAN CORPUSCULAR HEMOGLOBIN (BEAKER) (test 32.8 pg 25.7-32.2 wzwb=167) MEAN CORPUSCULAR HEMOGLOBIN CONC (BEAKER) (test 31.9 GM/DL 32.3-36.5 jzhi=135) RED CELL DISTRIBUTION WIDTH (BEAKER) (test 15.5 % 11.6-14.4 ybfl=960) PLATELET COUNT (BEAKER) (test syuk=216) 226 K/CU MM 150-450 MEAN PLATELET VOLUME (BEAKER) (test rbxy=678) 10.4 fL 9.4-12.4 NUCLEATED RED BLOOD CELLS (BEAKER) (test 0 /100 WBC 0-0 nnwl=513) NEUTROPHILS RELATIVE PERCENT (BEAKER) (test 54 % uxuw=073) LYMPHOCYTES RELATIVE PERCENT (BEAKER) (test 29 % uafu=832) MONOCYTES RELATIVE PERCENT (BEAKER) (test 9 % xfcg=859) EOSINOPHILS RELATIVE PERCENT (BEAKER) (test 6 % tjtt=198) BASOPHILS RELATIVE PERCENT (BEAKER) (test 1 % xuiy=755) NEUTROPHILS ABSOLUTE COUNT (BEAKER) (test 2.17 K/ L 1.78-5.38 enqw=081) LYMPHOCYTES ABSOLUTE COUNT (BEAKER) (test 1.18 K/ L 1.32-3.57 lshb=113) MONOCYTES ABSOLUTE COUNT (BEAKER) (test 0.37 K/ L 0.30-0.82 kavb=345) EOSINOPHILS ABSOLUTE COUNT (BEAKER) (test 0.25 K/ L 0.04-0.54 kugy=148) BASOPHILS ABSOLUTE COUNT (BEAKER) (test 0.04 K/ L 0.01-0.08 ecot=500) IMMATURE GRANULOCYTES-RELATIVE PERCENT (BEAKER) 0 % 0-1 (test wwgq=0230) COMPREHENSIVE METABOLIC [id number] 07:17:00 Test Item Value Reference Range Comments TOTAL PROTEIN (BEAKER) 7.3 gm/dL 6.0-8.3 (test ycyz=661) ALBUMIN (BEAKER) (test 3.2 g/dL 3.5-5.0 vydd=1781) ALKALINE PHOSPHATASE 235 U/L 40-150 (BEAKER) (test tkzk=554) BILIRUBIN TOTAL (BEAKER) 0.9 mg/dL 0.2-1.2 (test ozmm=093) SODIUM (BEAKER) (test 135 meq/L 136-145 bwsu=529) POTASSIUM (BEAKER) (test 3.6 meq/L 3.5-5.1 duil=263) CHLORIDE (BEAKER) (test 101 meq/L 98-107 gpal=601) CO2 (BEAKER) (test 29 meq/L 22-29 sshs=418) BLOOD UREA NITROGEN < mg/dL 7-21 (BEAKER) (test jrdj=294) CREATININE (BEAKER) (test 0.56 mg/dL 0.57-1.25 gfgw=689) GLUCOSE RANDOM (BEAKER) 87 mg/dL 70-105 (test uesw=916) CALCIUM (BEAKER) (test 8.6 mg/dL 8.4-10.2 cxjz=150) AST (SGOT) (BEAKER) (test 96 U/L 5-34 sgcp=291) ALT (SGPT) (BEAKER) (test 40 U/L 6-55 noht=653) EGFR (BEAKER) (test 169 mL/min/1.73 sq ESTIMATED GFR IS NOT lzhk=2210) m ACCURATE CREATININE CLEARANCE IN PREDICTING GLOMERULAR FILTRATION RATE. ESTIMATED GFR IS NOT APPLICABLE FOR DIALYSIS PATIENTS. CBC W/PLT COUNT & AUTO [id number] 06:05:00 Test Item Value Reference Range Comments WHITE BLOOD CELL COUNT (BEAKER) (test vjhh=993) 5.1 K/ L 3.5-10.5 RED BLOOD CELL COUNT (BEAKER) (test mudm=034) 3.60 M/ L 4.63-6.08 HEMOGLOBIN (BEAKER) (test xhxc=907) 11.7 GM/DL 13.7-17.5 HEMATOCRIT (BEAKER) (test hfjl=117) 37.6 % 40.1-51.0 MEAN CORPUSCULAR VOLUME (BEAKER) (test qcat=105) 104.4 fL 79.0-92.2 MEAN CORPUSCULAR HEMOGLOBIN (BEAKER) (test 32.5 pg 25.7-32.2 nqts=581) MEAN CORPUSCULAR HEMOGLOBIN CONC (BEAKER) (test 31.1 GM/DL 32.3-36.5 nayp=690) RED CELL DISTRIBUTION WIDTH (BEAKER) (test 15.5 % 11.6-14.4 jwvc=740) PLATELET COUNT (BEAKER) (test mdvb=020) 250 K/CU MM 150-450 MEAN PLATELET VOLUME (BEAKER) (test nsdk=730) 10.1 fL 9.4-12.4 NUCLEATED RED BLOOD CELLS (BEAKER) (test 0 /100 WBC 0-0 stcl=854) NEUTROPHILS RELATIVE PERCENT (BEAKER) (test 61 % grjb=257) LYMPHOCYTES RELATIVE PERCENT (BEAKER) (test 25 % ijns=152) MONOCYTES RELATIVE PERCENT (BEAKER) (test 8 % hgei=068) EOSINOPHILS RELATIVE PERCENT (BEAKER) (test 5 % lbfw=869) BASOPHILS RELATIVE PERCENT (BEAKER) (test 1 % snxx=062) NEUTROPHILS ABSOLUTE COUNT (BEAKER) (test 3.09 K/ L 1.78-5.38 uiae=596) LYMPHOCYTES ABSOLUTE COUNT (BEAKER) (test 1.28 K/ L 1.32-3.57 vzok=377) MONOCYTES ABSOLUTE COUNT (BEAKER) (test 0.39 K/ L 0.30-0.82 vpej=831) EOSINOPHILS ABSOLUTE COUNT (BEAKER) (test 0.25 K/ L 0.04-0.54 mruv=218) BASOPHILS ABSOLUTE COUNT (BEAKER) (test 0.05 K/ L 0.01-0.08 yhdp=961) IMMATURE GRANULOCYTES-RELATIVE PERCENT (BEAKER) 0 % 0-1 (test qxon=0345) [id number] 07:51:00 Test Item Value Reference Range Comments MAGNESIUM (BEAKER) (test hcoz=498) 1.7 mg/dL 1.6-2.6 COMPREHENSIVE METABOLIC [id number] 06:19:00 Test Item Value Reference Range Comments TOTAL PROTEIN (BEAKER) 6.1 gm/dL 6.0-8.3 (test vvoa=818) ALBUMIN (BEAKER) (test 2.7 g/dL 3.5-5.0 eqqe=6448) ALKALINE PHOSPHATASE 214 U/L 40-150 (BEAKER) (test llde=955) BILIRUBIN TOTAL (BEAKER) 0.9 mg/dL 0.2-1.2 (test pfpt=177) SODIUM (BEAKER) (test 139 meq/L 136-145 vded=705) POTASSIUM (BEAKER) (test 4.2 meq/L 3.5-5.1 hkkx=669) CHLORIDE (BEAKER) (test 110 meq/L 98-107 ytbv=303) CO2 (BEAKER) (test 24 meq/L 22-29 qnkj=930) BLOOD UREA NITROGEN < mg/dL 7-21 (BEAKER) (test qffg=749) CREATININE (BEAKER) (test 0.50 mg/dL 0.57-1.25 zegb=919) GLUCOSE RANDOM (BEAKER) 77 mg/dL 70-105 (test jdkt=915) CALCIUM (BEAKER) (test 7.7 mg/dL 8.4-10.2 fsoa=991) AST (SGOT) (BEAKER) (test 96 U/L 5-34 ppiv=156) ALT (SGPT) (BEAKER) (test 37 U/L 6-55 zmrs=134) EGFR (BEAKER) (test 193 mL/min/1.73 sq ESTIMATED GFR IS NOT lhsk=1063) m ACCURATE CREATININE CLEARANCE IN PREDICTING GLOMERULAR FILTRATION RATE. ESTIMATED GFR IS NOT APPLICABLE FOR DIALYSIS PATIENTS. CBC W/PLT COUNT & AUTO [id number] 05:15:00 Test Item Value Reference Range Comments WHITE BLOOD CELL COUNT (BEAKER) (test klmm=070) 4.8 K/ L 3.5-10.5 RED BLOOD CELL COUNT (BEAKER) (test bsao=752) 3.25 M/ L 4.63-6.08 HEMOGLOBIN (BEAKER) (test xbej=413) 10.7 GM/DL 13.7-17.5 HEMATOCRIT (BEAKER) (test cghe=347) 34.0 % 40.1-51.0 MEAN CORPUSCULAR VOLUME (BEAKER) (test drxa=474) 104.6 fL 79.0-92.2 MEAN CORPUSCULAR HEMOGLOBIN (BEAKER) (test 32.9 pg 25.7-32.2 skeb=204) MEAN CORPUSCULAR HEMOGLOBIN CONC (BEAKER) (test 31.5 GM/DL 32.3-36.5 bisp=443) RED CELL DISTRIBUTION WIDTH (BEAKER) (test 15.5 % 11.6-14.4 mvyj=129) PLATELET COUNT (BEAKER) (test bour=438) 219 K/CU MM 150-450 MEAN PLATELET VOLUME (BEAKER) (test vuiw=838) 10.2 fL 9.4-12.4 NUCLEATED RED BLOOD CELLS (BEAKER) (test 0 /100 WBC 0-0 jtdb=232) NEUTROPHILS RELATIVE PERCENT (BEAKER) (test 56 % gadn=492) LYMPHOCYTES RELATIVE PERCENT (BEAKER) (test 29 % xdpx=682) MONOCYTES RELATIVE PERCENT (BEAKER) (test 8 % oarf=466) EOSINOPHILS RELATIVE PERCENT (BEAKER) (test 5 % npoc=735) BASOPHILS RELATIVE PERCENT (BEAKER) (test 1 % zhzq=455) NEUTROPHILS ABSOLUTE COUNT (BEAKER) (test 2.69 K/ L 1.78-5.38 vxgu=215) LYMPHOCYTES ABSOLUTE COUNT (BEAKER) (test 1.40 K/ L 1.32-3.57 utmg=960) MONOCYTES ABSOLUTE COUNT (BEAKER) (test 0.37 K/ L 0.30-0.82 cwwb=541) EOSINOPHILS ABSOLUTE COUNT (BEAKER) (test 0.25 K/ L 0.04-0.54 qpsa=598) BASOPHILS ABSOLUTE COUNT (BEAKER) (test 0.05 K/ L 0.01-0.08 khpe=176) IMMATURE GRANULOCYTES-RELATIVE PERCENT (BEAKER) 0 % 0-1 (test qzzs=7270) COMPREHENSIVE METABOLIC [id number] 09:35:00 Test Item Value Reference Range Comments TOTAL PROTEIN (BEAKER) 6.4 gm/dL 6.0-8.3 Specimen slightly (test lwbf=600) hemolyzed ALBUMIN (BEAKER) (test 2.8 g/dL 3.5-5.0 Specimen slightly ykeb=1975) hemolyzed ALKALINE PHOSPHATASE 214 U/L 40-150 (BEAKER) (test xtyy=917) BILIRUBIN TOTAL (BEAKER) 1.0 mg/dL 0.2-1.2 Specimen slightly (test jsbx=916) hemolyzed SODIUM (BEAKER) (test 136 meq/L 136-145 blvz=565) POTASSIUM (BEAKER) (test 4.2 meq/L 3.5-5.1 Specimen slightly pkru=947) hemolyzed CHLORIDE (BEAKER) (test 107 meq/L 98-107 aonc=807) CO2 (BEAKER) (test 23 meq/L 22-29 gtvs=619) BLOOD UREA NITROGEN 2 mg/dL 7-21 (BEAKER) (test ojuj=292) CREATININE (BEAKER) (test 0.54 mg/dL 0.57-1.25 Specimen slightly hmkc=625) hemolyzed GLUCOSE RANDOM (BEAKER) 89 mg/dL 70-105 (test fwdw=535) CALCIUM (BEAKER) (test 7.6 mg/dL 8.4-10.2 oclb=537) AST (SGOT) (BEAKER) (test 101 U/L 5-34 Specimen slightly welw=743) hemolyzed ALT (SGPT) (BEAKER) (test 41 U/L 6-55 Specimen slightly wqjn=641) hemolyzed EGFR (BEAKER) (test 176 mL/min/1.73 sq ESTIMATED GFR IS NOT kaom=7248) m ACCURATE CREATININE CLEARANCE IN PREDICTING GLOMERULAR FILTRATION RATE. ESTIMATED GFR IS NOT APPLICABLE FOR DIALYSIS PATIENTS. [id number] 09:27:00 Test Item Value Reference Range Comments MAGNESIUM (BEAKER) (test 1.3 mg/dL 1.6-2.6 Specimen slightly hemolyzed kukc=298) CBC W/PLT COUNT & AUTO [id number] 09:04:00 Test Item Value Reference Range Comments WHITE BLOOD CELL COUNT (BEAKER) (test klqs=519) 5.7 K/ L 3.5-10.5 RED BLOOD CELL COUNT (BEAKER) (test kuor=224) 3.18 M/ L 4.63-6.08 HEMOGLOBIN (BEAKER) (test ixuf=804) 10.4 GM/DL 13.7-17.5 HEMATOCRIT (BEAKER) (test dlrp=865) 33.1 % 40.1-51.0 MEAN CORPUSCULAR VOLUME (BEAKER) (test kgtc=361) 104.1 fL 79.0-92.2 MEAN CORPUSCULAR HEMOGLOBIN (BEAKER) (test 32.7 pg 25.7-32.2 qhwm=308) MEAN CORPUSCULAR HEMOGLOBIN CONC (BEAKER) (test 31.4 GM/DL 32.3-36.5 kxib=790) RED CELL DISTRIBUTION WIDTH (BEAKER) (test 15.9 % 11.6-14.4 hjbc=516) PLATELET COUNT (BEAKER) (test ygvx=076) 223 K/CU MM 150-450 MEAN PLATELET VOLUME (BEAKER) (test cjjp=801) 10.4 fL 9.4-12.4 NUCLEATED RED BLOOD CELLS (BEAKER) (test 0 /100 WBC 0-0 muvh=855) NEUTROPHILS RELATIVE PERCENT (BEAKER) (test 58 % rjzv=016) LYMPHOCYTES RELATIVE PERCENT (BEAKER) (test 25 % zjlo=058) MONOCYTES RELATIVE PERCENT (BEAKER) (test 11 % kscj=386) EOSINOPHILS RELATIVE PERCENT (BEAKER) (test 5 % hhph=501) BASOPHILS RELATIVE PERCENT (BEAKER) (test 1 % kaci=181) NEUTROPHILS ABSOLUTE COUNT (BEAKER) (test 3.27 K/ L 1.78-5.38 zwhe=409) LYMPHOCYTES ABSOLUTE COUNT (BEAKER) (test 1.40 K/ L 1.32-3.57 krzd=318) MONOCYTES ABSOLUTE COUNT (BEAKER) (test 0.61 K/ L 0.30-0.82 gycy=466) EOSINOPHILS ABSOLUTE COUNT (BEAKER) (test 0.30 K/ L 0.04-0.54 kwzz=989) BASOPHILS ABSOLUTE COUNT (BEAKER) (test 0.07 K/ L 0.01-0.08 wdei=960) IMMATURE GRANULOCYTES-RELATIVE PERCENT (BEAKER) 0 % 0-1 (test hrbt=0274) COMPREHENSIVE METABOLIC [id number] 05:26:00 Test Item Value Reference Range Comments TOTAL PROTEIN (BEAKER) 5.7 gm/dL 6.0-8.3 (test ohrh=580) ALBUMIN (BEAKER) (test 2.6 g/dL 3.5-5.0 cskt=9586) ALKALINE PHOSPHATASE 204 U/L 40-150 (BEAKER) (test dixm=941) BILIRUBIN TOTAL (BEAKER) 1.0 mg/dL 0.2-1.2 (test ivtu=919) SODIUM (BEAKER) (test 138 meq/L 136-145 wolu=768) POTASSIUM (BEAKER) (test 3.3 meq/L 3.5-5.1 iouc=056) CHLORIDE (BEAKER) (test 106 meq/L 98-107 cxmc=239) CO2 (BEAKER) (test 24 meq/L 22-29 eutm=738) BLOOD UREA NITROGEN 5 mg/dL 7-21 (BEAKER) (test radq=371) CREATININE (BEAKER) (test 0.53 mg/dL 0.57-1.25 wlxg=848) GLUCOSE RANDOM (BEAKER) 85 mg/dL 70-105 (test avfs=088) CALCIUM (BEAKER) (test 7.3 mg/dL 8.4-10.2 slzn=169) AST (SGOT) (BEAKER) (test 108 U/L 5-34 hynh=749) ALT (SGPT) (BEAKER) (test 46 U/L 6-55 etkq=158) EGFR (BEAKER) (test 180 mL/min/1.73 sq ESTIMATED GFR IS NOT iuae=7786) m ACCURATE CREATININE CLEARANCE IN PREDICTING GLOMERULAR FILTRATION RATE. ESTIMATED GFR IS NOT APPLICABLE FOR DIALYSIS PATIENTS. PROTHROMBIN [id number] 05:08:00 Test Item Value Reference Range Comments PROTIME (BEAKER) (test vocn=366) 17.0 seconds 11.9-14.2 INR (BEAKER) (test ibuz=774) 1.5 <=5.9 Effective 12/11/2018: PT Reference Range ChangeNew: 11.9-14.2 Previous: 11.7- 14.7RECOMMENDED COUMADIN/WARFARIN INR THERAPY RANGESSTANDARD DOSE: 2.0-3.0 Includes: PROPHYLAXIS for venous thrombosis, systemic embolization; TREATMENT for venous thrombosis and/or pulmonary embolus.HIGH RISK: Target INR is2.5-3.5 for patients wiht mechanical heart valves.CBC W/PLT COUNT & AUTO [id number] 04:59:00 Test Item Value Reference Range Comments WHITE BLOOD CELL COUNT (BEAKER) (test mfjv=823) 6.1 K/ L 3.5-10.5 RED BLOOD CELL COUNT (BEAKER) (test mooh=019) 2.96 M/ L 4.63-6.08 HEMOGLOBIN (BEAKER) (test ecxh=169) 9.7 GM/DL 13.7-17.5 HEMATOCRIT (BEAKER) (test vtrt=866) 30.5 % 40.1-51.0 MEAN CORPUSCULAR VOLUME (BEAKER) (test uxsp=451) 103.0 fL 79.0-92.2 MEAN CORPUSCULAR HEMOGLOBIN (BEAKER) (test 32.8 pg 25.7-32.2 qfmw=755) MEAN CORPUSCULAR HEMOGLOBIN CONC (BEAKER) (test 31.8 GM/DL 32.3-36.5 qrge=058) RED CELL DISTRIBUTION WIDTH (BEAKER) (test 16.0 % 11.6-14.4 rdux=640) PLATELET COUNT (BEAKER) (test fpdn=342) 221 K/CU MM 150-450 MEAN PLATELET VOLUME (BEAKER) (test rmof=442) 10.7 fL 9.4-12.4 NUCLEATED RED BLOOD CELLS (BEAKER) (test 0 /100 WBC 0-0 oahq=724) NEUTROPHILS RELATIVE PERCENT (BEAKER) (test 62 % yahr=620) LYMPHOCYTES RELATIVE PERCENT (BEAKER) (test 22 % cqgy=581) MONOCYTES RELATIVE PERCENT (BEAKER) (test 11 % xbyi=014) EOSINOPHILS RELATIVE PERCENT (BEAKER) (test 3 % fujv=339) BASOPHILS RELATIVE PERCENT (BEAKER) (test 1 % ftwy=873) NEUTROPHILS ABSOLUTE COUNT (BEAKER) (test 3.81 K/ L 1.78-5.38 eydu=407) LYMPHOCYTES ABSOLUTE COUNT (BEAKER) (test 1.32 K/ L 1.32-3.57 nzjw=405) MONOCYTES ABSOLUTE COUNT (BEAKER) (test 0.70 K/ L 0.30-0.82 pmxj=631) EOSINOPHILS ABSOLUTE COUNT (BEAKER) (test 0.21 K/ L 0.04-0.54 nvtc=606) BASOPHILS ABSOLUTE COUNT (BEAKER) (test 0.07 K/ L 0.01-0.08 ejcx=123) IMMATURE GRANULOCYTES-RELATIVE PERCENT (BEAKER) 0 % 0-1 (test kupz=4797) POCT-GLUCOSE [id number] 07:44:00 Test Item Value Reference Range Comments POC-GLUCOSE METER (BEAKER) 90 mg/dL 70-110 TESTED AT [facility] [address] [facility] (test cquv=4310) [facility] [address] COMPREHENSIVE METABOLIC [id number] 07:29:00 Test Item Value Reference Range Comments TOTAL PROTEIN (BEAKER) 5.7 gm/dL 6.0-8.3 (test ivnr=047) ALBUMIN (BEAKER) (test 2.5 g/dL 3.5-5.0 akxy=4359) ALKALINE PHOSPHATASE 411 U/L 40-150 (BEAKER) (test lsma=401) BILIRUBIN TOTAL (BEAKER) 1.7 mg/dL 0.2-1.2 (test gsar=437) SODIUM (BEAKER) (test 139 meq/L 136-145 pmlh=441) POTASSIUM (BEAKER) (test 3.1 meq/L 3.5-5.1 yjew=713) CHLORIDE (BEAKER) (test 105 meq/L 98-107 oljz=400) CO2 (BEAKER) (test 24 meq/L 22-29 eiep=571) BLOOD UREA NITROGEN 3 mg/dL 7-21 (BEAKER) (test icrm=565) CREATININE (BEAKER) (test 0.61 mg/dL 0.57-1.25 pkle=230) GLUCOSE RANDOM (BEAKER) 95 mg/dL 70-105 (test grdw=974) CALCIUM (BEAKER) (test 6.8 mg/dL 8.4-10.2 cgrk=399) AST (SGOT) (BEAKER) (test 173 U/L 5-34 qnfd=521) ALT (SGPT) (BEAKER) (test 53 U/L 6-55 kypt=225) EGFR (BEAKER) (test 153 mL/min/1.73 sq ESTIMATED GFR IS NOT wmpx=6487) m ACCURATE CREATININE CLEARANCE IN PREDICTING GLOMERULAR FILTRATION RATE. ESTIMATED GFR IS NOT APPLICABLE FOR DIALYSIS PATIENTS. [id number] 07:28:00 Test Item Value Reference Range Comments PHOSPHORUS (BEAKER) (test oxsj=154) 2.4 mg/dL 2.3-4.7 [id number] 07:28:00 Test Item Value Reference Range Comments MAGNESIUM (BEAKER) (test falq=230) 1.8 mg/dL 1.6-2.6 HEPATIC FUNCTION [id number] 07:28:00 Test Item Value Reference Range Comments TOTAL PROTEIN (BEAKER) (test yavv=964) 5.7 gm/dL 6.0-8.3 ALBUMIN (BEAKER) (test kohx=1024) 2.5 g/dL 3.5-5.0 BILIRUBIN TOTAL (BEAKER) (test wuqm=566) 1.7 mg/dL 0.2-1.2 BILIRUBIN DIRECT (BEAKER) (test dwtv=639) 1.3 mg/dL 0.1-0.5 ALKALINE PHOSPHATASE (BEAKER) (test oxdv=882) 411 U/L 40-150 AST (SGOT) (BEAKER) (test cnpu=477) 173 U/L 5-34 ALT (SGPT) (BEAKER) (test gmyz=036) 53 U/L 6-55 [id number] 07:28:00 Test Item Value Reference Range Comments LIPASE (BEAKER) (test idew=648) 231 U/L 8-78 CBC W/PLT COUNT & AUTO [id number] 07:10:00 Test Item Value Reference Range Comments WHITE BLOOD CELL COUNT (BEAKER) (test nvsy=178) 4.5 K/ L 3.5-10.5 RED BLOOD CELL COUNT (BEAKER) (test eyrw=457) 2.76 M/ L 4.63-6.08 HEMOGLOBIN (BEAKER) (test vipi=940) 9.2 GM/DL 13.7-17.5 HEMATOCRIT (BEAKER) (test txgs=808) 29.2 % 40.1-51.0 MEAN CORPUSCULAR VOLUME (BEAKER) (test jnhn=356) 105.8 fL 79.0-92.2 MEAN CORPUSCULAR HEMOGLOBIN (BEAKER) (test 33.3 pg 25.7-32.2 pqyt=858) MEAN CORPUSCULAR HEMOGLOBIN CONC (BEAKER) (test 31.5 GM/DL 32.3-36.5 cxwo=050) RED CELL DISTRIBUTION WIDTH (BEAKER) (test 21.9 % 11.6-14.4 xocp=784) PLATELET COUNT (BEAKER) (test zais=158) 150 K/CU MM 150-450 MEAN PLATELET VOLUME (BEAKER) (test lvzb=452) 10.5 fL 9.4-12.4 NUCLEATED RED BLOOD CELLS (BEAKER) (test 0 /100 WBC 0-0 pfnf=929) NEUTROPHILS RELATIVE PERCENT (BEAKER) (test 65 % trbn=315) LYMPHOCYTES RELATIVE PERCENT (BEAKER) (test 17 % rmkl=658) MONOCYTES RELATIVE PERCENT (BEAKER) (test 13 % hidv=468) EOSINOPHILS RELATIVE PERCENT (BEAKER) (test 2 % oski=232) BASOPHILS RELATIVE PERCENT (BEAKER) (test 1 % orlf=968) NEUTROPHILS ABSOLUTE COUNT (BEAKER) (test 2.91 K/ L 1.78-5.38 cnyw=198) LYMPHOCYTES ABSOLUTE COUNT (BEAKER) (test 0.78 K/ L 1.32-3.57 imyh=035) MONOCYTES ABSOLUTE COUNT (BEAKER) (test 0.59 K/ L 0.30-0.82 eftc=004) EOSINOPHILS ABSOLUTE COUNT (BEAKER) (test 0.11 K/ L 0.04-0.54 irgm=445) BASOPHILS ABSOLUTE COUNT (BEAKER) (test 0.05 K/ L 0.01-0.08 jiaq=240) IMMATURE GRANULOCYTES-RELATIVE PERCENT (BEAKER) 2 % 0-1 (test exgg=4163) COMPREHENSIVE METABOLIC [id number] 04:23:00 Test Item Value Reference Range Comments TOTAL PROTEIN (BEAKER) 5.5 gm/dL 6.0-8.3 (test paye=141) ALBUMIN (BEAKER) (test 2.5 g/dL 3.5-5.0 koae=9674) ALKALINE PHOSPHATASE 453 U/L 40-150 (BEAKER) (test ttbw=350) BILIRUBIN TOTAL (BEAKER) 2.0 mg/dL 0.2-1.2 (test pagr=073) SODIUM (BEAKER) (test 138 meq/L 136-145 hhdy=363) POTASSIUM (BEAKER) (test 3.2 meq/L 3.5-5.1 mbub=032) CHLORIDE (BEAKER) (test 104 meq/L 98-107 pznt=431) CO2 (BEAKER) (test 26 meq/L 22-29 blmh=411) BLOOD UREA NITROGEN 3 mg/dL 7-21 (BEAKER) (test fssu=722) CREATININE (BEAKER) (test 0.51 mg/dL 0.57-1.25 maqe=257) GLUCOSE RANDOM (BEAKER) 104 mg/dL 70-105 (test krvq=191) CALCIUM (BEAKER) (test 7.0 mg/dL 8.4-10.2 vbto=243) AST (SGOT) (BEAKER) (test 166 U/L 5-34 rgqq=682) ALT (SGPT) (BEAKER) (test 52 U/L 6-55 alxb=097) EGFR (BEAKER) (test 188 mL/min/1.73 sq ESTIMATED GFR IS NOT joxm=0850) m ACCURATE CREATININE CLEARANCE IN PREDICTING GLOMERULAR FILTRATION RATE. ESTIMATED GFR IS NOT APPLICABLE FOR DIALYSIS PATIENTS. [id number] 04:21:00 Test Item Value Reference Range Comments PHOSPHORUS (BEAKER) (test romt=003) 2.0 mg/dL 2.3-4.7 [id number] 04:21:00 Test Item Value Reference Range Comments MAGNESIUM (BEAKER) (test gado=632) 1.5 mg/dL 1.6-2.6 HEPATIC FUNCTION [id number] 04:21:00 Test Item Value Reference Range Comments TOTAL PROTEIN (BEAKER) (test trxl=148) 5.5 gm/dL 6.0-8.3 ALBUMIN (BEAKER) (test tgvv=2847) 2.5 g/dL 3.5-5.0 BILIRUBIN TOTAL (BEAKER) (test turf=047) 2.0 mg/dL 0.2-1.2 BILIRUBIN DIRECT (BEAKER) (test yqpu=352) 1.5 mg/dL 0.1-0.5 ALKALINE PHOSPHATASE (BEAKER) (test hzfz=758) 453 U/L 40-150 AST (SGOT) (BEAKER) (test izib=445) 166 U/L 5-34 ALT (SGPT) (BEAKER) (test ksym=941) 52 U/L 6-55 [id number] 04:21:00 Test Item Value Reference Range Comments LIPASE (BEAKER) (test xhzq=793) 283 U/L 8-78 CBC W/PLT COUNT & AUTO [id number] 04:19:00 Test Item Value Reference Range Comments WHITE BLOOD CELL COUNT (BEAKER) (test lcez=292) 4.6 K/ L 3.5-10.5 RED BLOOD CELL COUNT (BEAKER) (test htlj=381) 2.82 M/ L 4.63-6.08 HEMOGLOBIN (BEAKER) (test nchl=232) 9.4 GM/DL 13.7-17.5 HEMATOCRIT (BEAKER) (test vybd=862) 28.9 % 40.1-51.0 MEAN CORPUSCULAR VOLUME (BEAKER) (test quyy=986) 102.5 fL 79.0-92.2 MEAN CORPUSCULAR HEMOGLOBIN (BEAKER) (test 33.3 pg 25.7-32.2 lkcy=186) MEAN CORPUSCULAR HEMOGLOBIN CONC (BEAKER) (test 32.5 GM/DL 32.3-36.5 buip=118) RED CELL DISTRIBUTION WIDTH (BEAKER) (test 21.8 % 11.6-14.4 rrzp=384) PLATELET COUNT (BEAKER) (test eanh=603) 141 K/CU MM 150-450 MEAN PLATELET VOLUME (BEAKER) (test hbzh=082) 9.5 fL 9.4-12.4 NUCLEATED RED BLOOD CELLS (BEAKER) (test 0 /100 WBC 0-0 brql=410) NEUTROPHILS RELATIVE PERCENT (BEAKER) (test 63 % lvhh=516) LYMPHOCYTES RELATIVE PERCENT (BEAKER) (test 22 % kfes=659) MONOCYTES RELATIVE PERCENT (BEAKER) (test 10 % bxkg=060) EOSINOPHILS RELATIVE PERCENT (BEAKER) (test 3 % flpi=914) BASOPHILS RELATIVE PERCENT (BEAKER) (test 1 % alkc=406) NEUTROPHILS ABSOLUTE COUNT (BEAKER) (test 2.86 K/ L 1.78-5.38 kdru=994) LYMPHOCYTES ABSOLUTE COUNT (BEAKER) (test 1.02 K/ L 1.32-3.57 hiic=630) MONOCYTES ABSOLUTE COUNT (BEAKER) (test 0.44 K/ L 0.30-0.82 yemx=179) EOSINOPHILS ABSOLUTE COUNT (BEAKER) (test 0.12 K/ L 0.04-0.54 ljtc=171) BASOPHILS ABSOLUTE COUNT (BEAKER) (test 0.05 K/ L 0.01-0.08 cdcc=646) IMMATURE GRANULOCYTES-RELATIVE PERCENT (BEAKER) 2 % 0-1 (test ceny=0110) HEMOGLOBIN AND [id number] 03:57:00 Test Item Value Reference Range Comments HEMOGLOBIN (BEAKER) (test bsdj=886) 9.4 GM/DL 13.7-17.5 HEMATOCRIT (BEAKER) (test paoz=586) 28.9 % 40.1-51.0 HEMOGLOBIN AND [id number] 11:59:00 Test Item Value Reference Range Comments HEMOGLOBIN (BEAKER) (test mftq=589) 8.4 GM/DL 13.7-17.5 HEMATOCRIT (BEAKER) (test hacg=527) 24.7 % 40.1-51.0 [id number] 09:15:00 Test Item Value Reference Range Comments LIPASE (BEAKER) (test ibji=854) 214 U/L 8-78 HEPATIC FUNCTION [id number] 06:09:00 Test Item Value Reference Range Comments TOTAL PROTEIN (BEAKER) (test mkyk=316) 5.1 gm/dL 6.0-8.3 ALBUMIN (BEAKER) (test pdnr=2263) 2.4 g/dL 3.5-5.0 BILIRUBIN TOTAL (BEAKER) (test eaih=303) 2.0 mg/dL 0.2-1.2 BILIRUBIN DIRECT (BEAKER) (test jkbb=497) 1.4 mg/dL 0.1-0.5 ALKALINE PHOSPHATASE (BEAKER) (test ymir=231) 418 U/L 40-150 AST (SGOT) (BEAKER) (test owhp=310) 147 U/L 5-34 ALT (SGPT) (BEAKER) (test pbkn=506) 51 U/L 6-55 CBC (HEMOGRAM ONLY)[id number] 05:04:00 Test Item Value Reference Range Comments WHITE BLOOD CELL COUNT (BEAKER) (test olvn=570) 4.8 K/ L 3.5-10.5 RED BLOOD CELL COUNT (BEAKER) (test norz=696) 2.41 M/ L 4.63-6.08 HEMOGLOBIN (BEAKER) (test fnkb=863) 8.1 GM/DL 13.7-17.5 HEMATOCRIT (BEAKER) (test cqft=834) 24.1 % 40.1-51.0 MEAN CORPUSCULAR VOLUME (BEAKER) (test eeue=839) 100.0 fL 79.0-92.2 MEAN CORPUSCULAR HEMOGLOBIN (BEAKER) (test 33.6 pg 25.7-32.2 zudt=866) MEAN CORPUSCULAR HEMOGLOBIN CONC (BEAKER) (test 33.6 GM/DL 32.3-36.5 idnq=250) RED CELL DISTRIBUTION WIDTH (BEAKER) (test 22.4 % 11.6-14.4 hazf=298) PLATELET COUNT (BEAKER) (test qzkt=724) 135 K/CU MM 150-450 MEAN PLATELET VOLUME (BEAKER) (test pyhq=909) 10.0 fL 9.4-12.4 NUCLEATED RED BLOOD CELLS (BEAKER) (test 1 /100 WBC 0-0 djkm=483) BASIC METABOLIC [id number] 02:50:00 Test Item Value Reference Range Comments SODIUM (BEAKER) (test 137 meq/L 136-145 xglc=776) POTASSIUM (BEAKER) (test 3.1 meq/L 3.5-5.1 qdou=393) CHLORIDE (BEAKER) (test 104 meq/L 98-107 mmlf=227) CO2 (BEAKER) (test 24 meq/L 22-29 qfaj=074) BLOOD UREA NITROGEN 3 mg/dL 7-21 (BEAKER) (test bzzc=698) CREATININE (BEAKER) (test 0.50 mg/dL 0.57-1.25 zdlh=880) GLUCOSE RANDOM (BEAKER) 124 mg/dL 70-105 (test ivat=939) CALCIUM (BEAKER) (test 6.5 mg/dL 8.4-10.2 ktqt=747) EGFR (BEAKER) (test 193 mL/min/1.73 sq m ESTIMATED GFR IS NOT krse=5520) ACCURATE CREATININE CLEARANCE IN PREDICTING GLOMERULAR FILTRATION RATE. ESTIMATED GFR IS NOT APPLICABLE FOR DIALYSIS PATIENTS. [id number] 02:14:00 Test Item Value Reference Range Comments PHOSPHORUS (BEAKER) (test slcx=602) 2.6 mg/dL 2.3-4.7 [id number] 02:14:00 Test Item Value Reference Range Comments MAGNESIUM (BEAKER) (test dafu=132) 1.9 mg/dL 1.6-2.6 HEMOGLOBIN AND [id number] 01:13:00 Test Item Value Reference Range Comments HEMOGLOBIN (BEAKER) (test hagj=458) 8.1 GM/DL 13.7-17.5 HEMATOCRIT (BEAKER) (test kabb=627) 23.8 % 40.1-51.0 POCT-GLUCOSE [id number] 20:56:00 Test Item Value Reference Range Comments POC-GLUCOSE METER (BEAKER) 105 mg/dL 70-110 TESTED AT [facility] [address] [facility] (test bcio=1549) [facility] [address] COMPREHENSIVE METABOLIC [id number] 14:51:00 Test Item Value Reference Range Comments TOTAL PROTEIN (BEAKER) 6.0 gm/dL 6.0-8.3 (test wlxo=935) ALBUMIN (BEAKER) (test 2.8 g/dL 3.5-5.0 ezlq=3821) ALKALINE PHOSPHATASE 489 U/L 40-150 (BEAKER) (test nkml=373) BILIRUBIN TOTAL (BEAKER) 2.7 mg/dL 0.2-1.2 (test lgmm=667) SODIUM (BEAKER) (test 141 meq/L 136-145 rrtw=373) POTASSIUM (BEAKER) (test 2.6 meq/L 3.5-5.1 baet=049) CHLORIDE (BEAKER) (test 103 meq/L 98-107 ekqu=841) CO2 (BEAKER) (test 28 meq/L 22-29 rpyv=869) BLOOD UREA NITROGEN 5 mg/dL 7-21 (BEAKER) (test ahiv=018) CREATININE (BEAKER) (test 0.54 mg/dL 0.57-1.25 rnyr=546) GLUCOSE RANDOM (BEAKER) 88 mg/dL 70-105 (test jsea=447) CALCIUM (BEAKER) (test 7.1 mg/dL 8.4-10.2 aoti=189) AST (SGOT) (BEAKER) (test 168 U/L 5-34 jfcd=523) ALT (SGPT) (BEAKER) (test 61 U/L 6-55 lsao=357) EGFR (BEAKER) (test 176 mL/min/1.73 sq ESTIMATED GFR IS NOT ixkq=9190) m ACCURATE CREATININE CLEARANCE IN PREDICTING GLOMERULAR FILTRATION RATE. ESTIMATED GFR IS NOT APPLICABLE FOR DIALYSIS PATIENTS. Specimen slightly [id number] 14:51:00 Test Item Value Reference Range Comments PHOSPHORUS (BEAKER) (test owou=127) 0.9 mg/dL 2.3-4.7 [id number] 14:41:00 Test Item Value Reference Range Comments MAGNESIUM (BEAKER) (test nbpo=157) 1.3 mg/dL 1.6-2.6 [id number] 14:41:00 Test Item Value Reference Range Comments AMYLASE (BEAKER) (test ybln=131) 160 U/L 25-125 Specimen slightly ictericLACTATE DEHYDROGENASE (LDH)2019-02-12 14:41:00 Test Item Value Reference Range Comments LACTATE DEHYDROGENASE (BEAKER) (test ahvk=954) 572 U/L 125-220 [id number] 14:41:00 Test Item Value Reference Range Comments LIPASE (BEAKER) (test mnqn=337) 562 U/L 8-78 Specimen slightly [id number] 14:39:00 Test Item Value Reference Range Comments ETHANOL (BEAKER) (test agwf=280) < mg/dL <=10 [id number] 14:27:00 Test Item Value Reference Range Comments D-DIMER QUANTITATIVE (BEAKER) (test gbld=703) 4.23 MG/L FEU <0.50 Intended Use: The [...] of thrombosis is within 95-100% range.LACTIC ACID, [id number] 14:25:00 Test Item Value Reference Range Comments LACTATE BLOOD VENOUS (2) (BEAKER) (test 1.5 mmol/L 0.5-2.2 sgmk=0137) [id number] 14:21:00 Test Item Value Reference Range Comments AMMONIA (BEAKER) (test cfsc=837) 50 mol/L 18-72 [id number] 14:17:00 Test Item Value Reference Range Comments PROTIME (BEAKER) (test mnse=160) 17.8 seconds 11.9-14.2 INR (BEAKER) (test eghg=860) 1.6 <=5.9 PARTIAL THROMBOPLASTIN TIME (BEAKER) (test 34.9 seconds 22.5-36.0 gjjn=961) Effective 12/11/2018: PT Reference Range ChangeNew: 11.9-14.2 Previous: 11.7- 14.7RECOMMENDED COUMADIN/WARFARIN INR THERAPY RANGESSTANDARD DOSE: 2.0-3.0 Includes: PROPHYLAXIS for venous thrombosis, systemic embolization; TREATMENT for venous thrombosis and/or pulmonary embolus.HIGH RISK: Target INR is2.5-3.5 for patients wiht mechanical heart valves.[id number] 14:17:00 Test Item Value Reference Range Comments FIBRINOGEN LEVEL (BEAKER) (test xbhm=382) 304 mg/dl 225-434 CBC (HEMOGRAM ONLY)2019-02-12 14:13:00 Test Item Value Reference Range Comments WHITE BLOOD CELL COUNT 5.0 K/ L 3.5-10.5 (BEAKER) (test micf=420) RED BLOOD CELL COUNT (BEAKER) 2.64 M/ L 4.63-6.08 (test nznn=864) HEMOGLOBIN (BEAKER) (test 9.0 GM/DL 13.7-17.5 jmut=667) HEMATOCRIT (BEAKER) (test 27.0 % 40.1-51.0 xjuj=026) MEAN CORPUSCULAR VOLUME 102.3 fL 79.0-92.2 (BEAKER) (test wfth=261) MEAN CORPUSCULAR HEMOGLOBIN 34.1 pg 25.7-32.2 (BEAKER) (test qgsq=506) MEAN CORPUSCULAR HEMOGLOBIN 33.3 GM/DL 32.3-36.5 CONC (BEAKER) (test oovs=447) RED CELL DISTRIBUTION WIDTH % 11.6-14.4 Unable to report due to (BEAKER) (test gfim=578) abnormal Platelet population distribution. PLATELET COUNT (BEAKER) (test 146 K/CU MM 150-450 binq=209) MEAN PLATELET VOLUME (BEAKER) 10.0 fL 9.4-12.4 (test kqdq=882) NUCLEATED RED BLOOD CELLS 1 /100 WBC 0-0 (BEAKER) (test qtlu=656) CBC W/PLT COUNT & AUTO [id number] 05:36:00 Test Item Value Reference Range Comments WHITE BLOOD CELL COUNT (BEAKER) (test ktsk=868) 3.1 K/ L 3.5-10.5 RED BLOOD CELL COUNT (BEAKER) (test niww=831) 3.39 M/ L 4.63-6.08 HEMOGLOBIN (BEAKER) (test yvki=458) 11.5 GM/DL 13.7-17.5 HEMATOCRIT (BEAKER) (test ejsm=700) 33.7 % 40.1-51.0 MEAN CORPUSCULAR VOLUME (BEAKER) (test zxle=876) 99.4 fL 79.0-92.2 MEAN CORPUSCULAR HEMOGLOBIN (BEAKER) (test 33.9 pg 25.7-32.2 egjl=166) MEAN CORPUSCULAR HEMOGLOBIN CONC (BEAKER) (test 34.1 GM/DL 32.3-36.5 tmte=974) RED CELL DISTRIBUTION WIDTH (BEAKER) (test 12.8 % 11.6-14.4 oyaa=101) PLATELET COUNT (BEAKER) (test ogpj=313) 130 K/CU MM 150-450 MEAN PLATELET VOLUME (BEAKER) (test yeqs=700) 10.4 fL 9.4-12.4 NUCLEATED RED BLOOD CELLS (BEAKER) (test 0 /100 WBC 0-0 tenj=093) NEUTROPHILS RELATIVE PERCENT (BEAKER) (test 51 % hdvw=234) LYMPHOCYTES RELATIVE PERCENT (BEAKER) (test 31 % ocjg=142) MONOCYTES RELATIVE PERCENT (BEAKER) (test 12 % mcxs=642) EOSINOPHILS RELATIVE PERCENT (BEAKER) (test 4 % alsk=546) BASOPHILS RELATIVE PERCENT (BEAKER) (test 1 % lhxv=603) NEUTROPHILS ABSOLUTE COUNT (BEAKER) (test 1.61 K/ L 1.78-5.38 seex=670) LYMPHOCYTES ABSOLUTE COUNT (BEAKER) (test 0.98 K/ L 1.32-3.57 vzkj=082) MONOCYTES ABSOLUTE COUNT (BEAKER) (test 0.38 K/ L 0.30-0.82 ruqx=171) EOSINOPHILS ABSOLUTE COUNT (BEAKER) (test 0.11 K/ L 0.04-0.54 lfql=245) BASOPHILS ABSOLUTE COUNT (BEAKER) (test 0.04 K/ L 0.01-0.08 lnxz=093) IMMATURE GRANULOCYTES-RELATIVE PERCENT (BEAKER) 1 % 0-1 (test rygp=8146) MR, ABDOMEN, [id number] 13:31:00FINAL REPORT MRCP, MRI of abdomen without [...] Reyeseport Verified Date/Time: 12/12/2018 13:31:00 Reading Location: [facility] C013Y CT Body Reading Room COMPREHENSIVE METABOLIC [id number] 09:56:00 Test Item Value Reference Range Comments TOTAL PROTEIN (BEAKER) 5.5 gm/dL 6.0-8.3 (test srxu=250) ALBUMIN (BEAKER) (test 3.1 g/dL 3.5-5.0 mmco=0203) ALKALINE PHOSPHATASE 116 U/L 40-150 (BEAKER) (test dntz=425) BILIRUBIN TOTAL (BEAKER) 1.9 mg/dL 0.2-1.2 (test dnxe=937) SODIUM (BEAKER) (test 139 meq/L 136-145 myui=803) POTASSIUM (BEAKER) (test 3.0 meq/L 3.5-5.1 ufxb=550) CHLORIDE (BEAKER) (test 107 meq/L 98-107 ngop=349) CO2 (BEAKER) (test 23 meq/L 22-29 rurs=844) BLOOD UREA NITROGEN 4 mg/dL 7-21 (BEAKER) (test vqzq=430) CREATININE (BEAKER) (test 0.56 mg/dL 0.57-1.25 tosf=447) GLUCOSE RANDOM (BEAKER) 116 mg/dL 70-105 (test ccgq=941) CALCIUM (BEAKER) (test 7.4 mg/dL 8.4-10.2 tcmq=667) AST (SGOT) (BEAKER) (test 297 U/L 5-34 thai=837) ALT (SGPT) (BEAKER) (test 173 U/L 6-55 ygxd=395) EGFR (BEAKER) (test 169 mL/min/1.73 sq ESTIMATED GFR IS NOT hkak=2865) m ACCURATE CREATININE CLEARANCE IN PREDICTING GLOMERULAR FILTRATION RATE. ESTIMATED GFR IS NOT APPLICABLE FOR DIALYSIS PATIENTS. CBC W/PLT COUNT & AUTO [id number] 04:42:00 Test Item Value Reference Range Comments WHITE BLOOD CELL COUNT (BEAKER) (test eita=158) 3.1 K/ L 3.5-10.5 RED BLOOD CELL COUNT (BEAKER) (test nafc=723) 3.09 M/ L 4.63-6.08 HEMOGLOBIN (BEAKER) (test mdpv=775) 10.7 GM/DL 13.7-17.5 HEMATOCRIT (BEAKER) (test idgq=878) 30.5 % 40.1-51.0 MEAN CORPUSCULAR VOLUME (BEAKER) (test usox=189) 98.7 fL 79.0-92.2 MEAN CORPUSCULAR HEMOGLOBIN (BEAKER) (test 34.6 pg 25.7-32.2 ytnd=544) MEAN CORPUSCULAR HEMOGLOBIN CONC (BEAKER) (test 35.1 GM/DL 32.3-36.5 zqys=067) RED CELL DISTRIBUTION WIDTH (BEAKER) (test 12.4 % 11.6-14.4 mqbt=083) PLATELET COUNT (BEAKER) (test mgfb=447) 99 K/CU MM 150-450 MEAN PLATELET VOLUME (BEAKER) (test jktp=793) 11.0 fL 9.4-12.4 NUCLEATED RED BLOOD CELLS (BEAKER) (test 0 /100 WBC 0-0 tsyk=177) NEUTROPHILS RELATIVE PERCENT (BEAKER) (test 60 % zrzy=876) LYMPHOCYTES RELATIVE PERCENT (BEAKER) (test 26 % jecc=608) MONOCYTES RELATIVE PERCENT (BEAKER) (test 11 % kqiz=410) EOSINOPHILS RELATIVE PERCENT (BEAKER) (test 2 % iygj=319) BASOPHILS RELATIVE PERCENT (BEAKER) (test 1 % ulpz=281) NEUTROPHILS ABSOLUTE COUNT (BEAKER) (test 1.84 K/ L 1.78-5.38 bkvz=703) LYMPHOCYTES ABSOLUTE COUNT (BEAKER) (test 0.81 K/ L 1.32-3.57 skbc=019) MONOCYTES ABSOLUTE COUNT (BEAKER) (test dxig=089) 0.34 K/ L 0.30-0.82 EOSINOPHILS ABSOLUTE COUNT (BEAKER) (test 0.06 K/ L 0.04-0.54 jfbc=842) BASOPHILS ABSOLUTE COUNT (BEAKER) (test pkxc=207) 0.03 K/ L 0.01-0.08 IMMATURE GRANULOCYTES-RELATIVE PERCENT (BEAKER) 0 % 0-1 (test pgot=8306) FL, ESOPH, SWALLOW FUNCTION, WITH CINE OR [id number] 12:02:00Reason for exam:->pneumomediastinum, rule out esophageal perforationFINAL [...] Verified Date/Time: 12/11/2018 12:02: 17 Reading Location: [facility] B1 C013X Ortho Consult Reading Room BASIC METABOLIC [id number] 07:31:00 Test Item Value Reference Range Comments SODIUM (BEAKER) (test 139 meq/L 136-145 rzlv=700) POTASSIUM (BEAKER) (test 3.4 meq/L 3.5-5.1 Specimen slightly xbgi=195) hemolyzed CHLORIDE (BEAKER) (test 103 meq/L 98-107 mgwe=128) CO2 (BEAKER) (test 20 meq/L 22-29 roeq=922) BLOOD UREA NITROGEN 18 mg/dL 7-21 (BEAKER) (test knnv=542) CREATININE (BEAKER) (test 0.73 mg/dL 0.57-1.25 Specimen slightly ghtu=351) hemolyzed GLUCOSE RANDOM (BEAKER) 67 mg/dL 70-105 (test wgvb=629) CALCIUM (BEAKER) (test 8.6 mg/dL 8.4-10.2 tyze=769) EGFR (BEAKER) (test 125 mL/min/1.73 sq m ESTIMATED GFR IS NOT wmmh=1605) ACCURATE CREATININE CLEARANCE IN PREDICTING GLOMERULAR FILTRATION RATE. ESTIMATED GFR IS NOT APPLICABLE FOR DIALYSIS PATIENTS. CBC W/PLT COUNT & AUTO [id number] 07:12:00 Test Item Value Reference Range Comments WHITE BLOOD CELL COUNT (BEAKER) (test bdlk=191) 4.6 K/ L 3.5-10.5 RED BLOOD CELL COUNT (BEAKER) (test azii=139) 3.19 M/ L 4.63-6.08 HEMOGLOBIN (BEAKER) (test bgcs=412) 11.1 GM/DL 13.7-17.5 HEMATOCRIT (BEAKER) (test ebja=695) 31.0 % 40.1-51.0 MEAN CORPUSCULAR VOLUME (BEAKER) (test uqyd=158) 97.2 fL 79.0-92.2 MEAN CORPUSCULAR HEMOGLOBIN (BEAKER) (test 34.8 pg 25.7-32.2 jbbk=360) MEAN CORPUSCULAR HEMOGLOBIN CONC (BEAKER) (test 35.8 GM/DL 32.3-36.5 keol=484) RED CELL DISTRIBUTION WIDTH (BEAKER) (test 13.0 % 11.6-14.4 kawh=993) PLATELET COUNT (BEAKER) (test xtam=066) 103 K/CU MM 150-450 MEAN PLATELET VOLUME (BEAKER) (test eqni=936) 11.0 fL 9.4-12.4 NUCLEATED RED BLOOD CELLS (BEAKER) (test 0 /100 WBC 0-0 bkkd=429) NEUTROPHILS RELATIVE PERCENT (BEAKER) (test 73 % evnb=521) LYMPHOCYTES RELATIVE PERCENT (BEAKER) (test 16 % qzxf=849) MONOCYTES RELATIVE PERCENT (BEAKER) (test 9 % jvmx=789) EOSINOPHILS RELATIVE PERCENT (BEAKER) (test 1 % glqs=956) BASOPHILS RELATIVE PERCENT (BEAKER) (test 0 % sdhy=822) NEUTROPHILS ABSOLUTE COUNT (BEAKER) (test 3.36 K/ L 1.78-5.38 goep=467) LYMPHOCYTES ABSOLUTE COUNT (BEAKER) (test 0.75 K/ L 1.32-3.57 nrdn=228) MONOCYTES ABSOLUTE COUNT (BEAKER) (test 0.41 K/ L 0.30-0.82 wtmt=020) EOSINOPHILS ABSOLUTE COUNT (BEAKER) (test 0.04 K/ L 0.04-0.54 lfrr=775) BASOPHILS ABSOLUTE COUNT (BEAKER) (test 0.02 K/ L 0.01-0.08 khhb=800) IMMATURE GRANULOCYTES-RELATIVE PERCENT (BEAKER) 1 % 0-1 (test qtpx=4332) RAD, CHEST, 1 VIEW, NON [id number] 20:13:00Reason for exam:-> pneumomediastinumShould this be performed [...] Verified Date /Time: 12/10/2018 20:13:39 Reading Location: [address] Reading Room [id number] 19:12:00 Test Item Value Reference Range Comments MAGNESIUM (BEAKER) (test 1.8 mg/dL 1.6-2.6 Specimen slightly hemolyzed etvm=309) COMPREHENSIVE METABOLIC [id number] 19:12:00 Test Item Value Reference Range Comments TOTAL PROTEIN (BEAKER) 6.3 gm/dL 6.0-8.3 Specimen slightly (test gqna=111) hemolyzed ALBUMIN (BEAKER) (test 3.7 g/dL 3.5-5.0 Specimen slightly hmnt=3534) hemolyzed ALKALINE PHOSPHATASE 129 U/L 40-150 (BEAKER) (test tvjs=445) BILIRUBIN TOTAL (BEAKER) 2.9 mg/dL 0.2-1.2 Specimen slightly (test tbbu=077) hemolyzed SODIUM (BEAKER) (test 137 meq/L 136-145 dqjz=237) POTASSIUM (BEAKER) (test 2.7 meq/L 3.5-5.1 Specimen slightly leqw=844) hemolyzed CHLORIDE (BEAKER) (test 99 meq/L 98-107 sbmm=584) CO2 (BEAKER) (test 23 meq/L 22-29 fign=262) BLOOD UREA NITROGEN 22 mg/dL 7-21 (BEAKER) (test lwia=560) CREATININE (BEAKER) (test 1.28 mg/dL 0.57-1.25 Specimen slightly mcoq=813) hemolyzed GLUCOSE RANDOM (BEAKER) 78 mg/dL 70-105 (test rfwk=998) CALCIUM (BEAKER) (test 8.5 mg/dL 8.4-10.2 bvvq=558) AST (SGOT) (BEAKER) (test 502 U/L 5-34 Specimen slightly fqox=631) hemolyzed ALT (SGPT) (BEAKER) (test 225 U/L 6-55 Specimen slightly zoel=294) hemolyzed EGFR (BEAKER) (test 65 mL/min/1.73 sq m ESTIMATED GFR IS NOT qwfq=7450) ACCURATE CREATININE CLEARANCE IN PREDICTING GLOMERULAR FILTRATION RATE. ESTIMATED GFR IS NOT APPLICABLE FOR DIALYSIS PATIENTS. Specimen slightly ictericPROTHROMBIN [id number] 18:53:00 Test Item Value Reference Range Comments PROTIME (BEAKER) (test avfm=667) 15.8 seconds 11.7-14.7 INR (BEAKER) (test nihn=289) 1.3 <=5.9 RECOMMENDED COUMADIN/WARFARIN INR THERAPY RANGESSTANDARD DOSE: 2.0 - 3.0 Includes: PROPHYLAXIS forvenous thrombosis, systemic embolization; TREATMENT for venous thrombosis and/or pulmonary embolus.HIGH RISK: Target INR is 2.5-3.5 for patients with mechanical heart valves.CBC W/PLT COUNT & AUTO [id number] 18:49:00 Test Item Value Reference Range Comments WHITE BLOOD CELL COUNT (BEAKER) (test opib=994) 6.0 K/ L 3.5-10.5 RED BLOOD CELL COUNT (BEAKER) (test smrk=962) 3.44 M/ L 4.63-6.08 HEMOGLOBIN (BEAKER) (test jmjy=078) 11.6 GM/DL 13.7-17.5 HEMATOCRIT (BEAKER) (test zfwq=598) 34.1 % 40.1-51.0 MEAN CORPUSCULAR VOLUME (BEAKER) (test opsc=873) 99.1 fL 79.0-92.2 MEAN CORPUSCULAR HEMOGLOBIN (BEAKER) (test 33.7 pg 25.7-32.2 ckcv=053) MEAN CORPUSCULAR HEMOGLOBIN CONC (BEAKER) (test 34.0 GM/DL 32.3-36.5 fbwy=272) RED CELL DISTRIBUTION WIDTH (BEAKER) (test 13.1 % 11.6-14.4 shjx=001) PLATELET COUNT (BEAKER) (test rdob=457) 109 K/CU MM 150-450 MEAN PLATELET VOLUME (BEAKER) (test ktam=631) 11.0 fL 9.4-12.4 NUCLEATED RED BLOOD CELLS (BEAKER) (test 0 /100 WBC 0-0 oatk=968) NEUTROPHILS RELATIVE PERCENT (BEAKER) (test 81 % fujo=162) LYMPHOCYTES RELATIVE PERCENT (BEAKER) (test 12 % whvv=005) MONOCYTES RELATIVE PERCENT (BEAKER) (test 7 % wldz=329) EOSINOPHILS RELATIVE PERCENT (BEAKER) (test 0 % dtey=195) BASOPHILS RELATIVE PERCENT (BEAKER) (test 0 % dfqn=021) NEUTROPHILS ABSOLUTE COUNT (BEAKER) (test 4.84 K/ L 1.78-5.38 euqk=462) LYMPHOCYTES ABSOLUTE COUNT (BEAKER) (test 0.72 K/ L 1.32-3.57 zjsy=391) MONOCYTES ABSOLUTE COUNT (BEAKER) (test 0.41 K/ L 0.30-0.82 dofi=033) EOSINOPHILS ABSOLUTE COUNT (BEAKER) (test 0.01 K/ L 0.04-0.54 rojn=000) BASOPHILS ABSOLUTE COUNT (BEAKER) (test 0.02 K/ L 0.01-0.08 ftzr=851) IMMATURE GRANULOCYTES-RELATIVE PERCENT (BEAKER) 0 % 0-1 (test fuew=9853) BLOOD [id number] 20:01:00 Test Item Value Reference Range Comments CULTURE (BEAKER) (test vkpr=5698) No growth in 5 days BLOOD [id number] 20:01:00 Test Item Value Reference Range Comments CULTURE (BEAKER) (test hqoy=8282) No growth in 5 days RAD, CHEST, 1 VIEW, NON [id number] 13:13:00Reason for exam:->evalute for pneumoniaShould this be performed at the bedside?->YesAddendum BeginsREPORT STATUS:A Addendum:Clinical diagnosis alcohol withdrawalsyndrome, electrolyte disturbances, elevated liver function tests, pneumonia, Signed: Marilu Sharpe MDReport Verified Date/Time: 11/01/2018 13:13: 23 Reading Location: [address] Consult Reading RoomAddendum EndsFINAL REPORT Chest [...] Verified Date/Time: 10/28 15:36:38 Reading Location: [facility] C013W Consult Reading Room U/S, ABDOMINAL, WITH [id number] 10:43:00Reason for exam:->evaluate for portal hypertension, cirrhosis, [...] Sharpeeport Verified Date/Time: 10/31/2018 10:43:58 Reading Location: [address] Ultrasound Reading Room COMPREHENSIVE METABOLIC [id number] 06:57:00 Test Item Value Reference Range Comments TOTAL PROTEIN (BEAKER) 6.3 gm/dL 6.0-8.3 (test vset=392) ALBUMIN (BEAKER) (test 3.4 g/dL 3.5-5.0 bbxx=6482) ALKALINE PHOSPHATASE 165 U/L 40-150 (BEAKER) (test rzcy=177) BILIRUBIN TOTAL (BEAKER) 0.6 mg/dL 0.2-1.2 (test vnlg=203) SODIUM (BEAKER) (test 140 meq/L 136-145 mtbs=541) POTASSIUM (BEAKER) (test 3.6 meq/L 3.5-5.1 gcqd=814) CHLORIDE (BEAKER) (test 102 meq/L 98-107 oguj=900) CO2 (BEAKER) (test 29 meq/L 22-29 jfeo=772) BLOOD UREA NITROGEN 3 mg/dL 7-21 (BEAKER) (test oerg=348) CREATININE (BEAKER) (test 0.55 mg/dL 0.57-1.25 gkby=680) GLUCOSE RANDOM (BEAKER) 89 mg/dL 70-105 (test wauq=718) CALCIUM (BEAKER) (test 9.2 mg/dL 8.4-10.2 lnuy=353) AST (SGOT) (BEAKER) (test 184 U/L 5-34 cocz=543) ALT (SGPT) (BEAKER) (test 156 U/L 6-55 jqta=269) EGFR (BEAKER) (test 173 mL/min/1.73 sq ESTIMATED GFR IS NOT gjzg=2892) m ACCURATE CREATININE CLEARANCE IN PREDICTING GLOMERULAR FILTRATION RATE. ESTIMATED GFR IS NOT APPLICABLE FOR DIALYSIS PATIENTS. HEMOGLOBIN [id number] 09:30:00 Test Item Value Reference Range Comments HEMOGLOBIN A1C (BEAKER) (test nyqv=642) 4.9 % 4.3-6.1 COMPREHENSIVE METABOLIC [id number] 05:17:00 Test Item Value Reference Range Comments TOTAL PROTEIN (BEAKER) 6.5 gm/dL 6.0-8.3 (test bumi=244) ALBUMIN (BEAKER) (test 3.6 g/dL 3.5-5.0 ibsf=9898) ALKALINE PHOSPHATASE 170 U/L 40-150 (BEAKER) (test ujpw=693) BILIRUBIN TOTAL (BEAKER) 0.9 mg/dL 0.2-1.2 (test fltn=843) SODIUM (BEAKER) (test 141 meq/L 136-145 mmbl=843) POTASSIUM (BEAKER) (test 3.5 meq/L 3.5-5.1 oxpe=970) CHLORIDE (BEAKER) (test 104 meq/L 98-107 pnbh=405) CO2 (BEAKER) (test 26 meq/L 22-29 ohfb=649) BLOOD UREA NITROGEN 4 mg/dL 7-21 (BEAKER) (test jamu=154) CREATININE (BEAKER) (test 0.55 mg/dL 0.57-1.25 yqpe=892) GLUCOSE RANDOM (BEAKER) 89 mg/dL 70-105 (test qwik=297) CALCIUM (BEAKER) (test 9.3 mg/dL 8.4-10.2 xxsi=036) AST (SGOT) (BEAKER) (test 167 U/L 5-34 tyep=588) ALT (SGPT) (BEAKER) (test 156 U/L 6-55 nhfo=231) EGFR (BEAKER) (test 173 mL/min/1.73 sq ESTIMATED GFR IS NOT mjmt=3979) m ACCURATE CREATININE CLEARANCE IN PREDICTING GLOMERULAR FILTRATION RATE. ESTIMATED GFR IS NOT APPLICABLE FOR DIALYSIS PATIENTS. CBC W/PLT COUNT & AUTO [id number] 04:53:00 Test Item Value Reference Range Comments WHITE BLOOD CELL COUNT (BEAKER) (test brck=379) 3.4 K/ L 3.5-10.5 RED BLOOD CELL COUNT (BEAKER) (test joxl=207) 3.45 M/ L 4.63-6.08 HEMOGLOBIN (BEAKER) (test oigq=203) 11.8 GM/DL 13.7-17.5 HEMATOCRIT (BEAKER) (test yeqf=879) 34.4 % 40.1-51.0 MEAN CORPUSCULAR VOLUME (BEAKER) (test pehy=669) 99.7 fL 79.0-92.2 MEAN CORPUSCULAR HEMOGLOBIN (BEAKER) (test 34.2 pg 25.7-32.2 ebva=734) MEAN CORPUSCULAR HEMOGLOBIN CONC (BEAKER) (test 34.3 GM/DL 32.3-36.5 lyhc=429) RED CELL DISTRIBUTION WIDTH (BEAKER) (test 12.2 % 11.6-14.4 llbh=893) PLATELET COUNT (BEAKER) (test kpxv=725) 175 K/CU MM 150-450 MEAN PLATELET VOLUME (BEAKER) (test xvct=026) 10.3 fL 9.4-12.4 NUCLEATED RED BLOOD CELLS (BEAKER) (test 0 /100 WBC 0-0 dwrk=437) NEUTROPHILS RELATIVE PERCENT (BEAKER) (test 55 % spdg=418) LYMPHOCYTES RELATIVE PERCENT (BEAKER) (test 30 % cowy=185) MONOCYTES RELATIVE PERCENT (BEAKER) (test 11 % zgiz=719) EOSINOPHILS RELATIVE PERCENT (BEAKER) (test 3 % uafk=340) BASOPHILS RELATIVE PERCENT (BEAKER) (test 1 % pfbb=529) NEUTROPHILS ABSOLUTE COUNT (BEAKER) (test 1.89 K/ L 1.78-5.38 dtcb=435) LYMPHOCYTES ABSOLUTE COUNT (BEAKER) (test 1.03 K/ L 1.32-3.57 bqzb=071) MONOCYTES ABSOLUTE COUNT (BEAKER) (test 0.39 K/ L 0.30-0.82 goyd=248) EOSINOPHILS ABSOLUTE COUNT (BEAKER) (test 0.09 K/ L 0.04-0.54 zlzr=068) BASOPHILS ABSOLUTE COUNT (BEAKER) (test 0.03 K/ L 0.01-0.08 exyv=695) IMMATURE GRANULOCYTES-RELATIVE PERCENT (BEAKER) 0 % 0-1 (test jeuu=6512) LIPID [id number] 17:30:00 Test Item Value Reference Range Comments TRIGLYCERIDES (BEAKER) (test qahs=818) 90 mg/dL CHOLESTEROL (BEAKER) (test wgxi=489) 140 mg/dL HDL CHOLESTEROL (BEAKER) (test pund=572) 37 mg/dL LDL CHOLESTEROL CALCULATED (BEAKER) (test 85 mg/dL gppi=661) Triglyceride Reference Range: Low Risk <150 Borderline 150- 199 High Risk 200-499 Very High Risk >=500Cholesterol Reference Range: Low Risk <200 Borderline 200-239 High Risk > 240HDL Cholesterol Reference Range: Low Risk >=60 High Risk <40LDL Cholesterol Reference Range: Optimal <100 Near Optimal 100-129 Borderline 130-159 High 160-189 Very High >=190HEPATITIS C PCR, [id number] 14:57:00 Test Item Value Reference Range Comments HCV RESULT COMPONENT (BRANDONAKER) HCV RNA not detected HCV RNA not detected (test htxp=5350) This test uses a Real-Time Polymerase Chain Reaction (RT-PCR) methodology and was performed using MARIANO Ampliprep/MARIANO TaqMan HCV test kit version 2.0 ( [employer]).Reportable range for this assay is 15 - 100,000, 000 IU per mL (1.18 - 8.00 Log IU/mL).RAD, ABDOMEN/KUB, 1 VIEW [id number] 14: 17:00Reason for exam:->abd distensionFINAL REPORT TECHNIQUE: Supine radiographs of the abdomen dated 10/29/2018. HISTORY: Abdominal distention. COMPARISON: None IMPRESSION:No air-filled, dilated loops of bowel to suggest obstruction. No free intraperitoneal air. No abnormal soft tissue mass or calcification. Signed:Nancy Concepcion Verified Date/ Time: 10/29/2018 14:17:17 Reading Location: [facility] Radiology Reading Room [id number] 13:28:00 Test Item Value Reference Range Comments RPR SCREEN (GALEN) (test edgp=072) Nonreactive Nonreactive [id number] 05:12:00 Test Item Value Reference Range Comments PHOSPHORUS (BEAKER) (test oked=462) 2.5 mg/dL 2.3-4.7 COMPREHENSIVE METABOLIC [id number] 05:12:00 Test Item Value Reference Range Comments TOTAL PROTEIN (BEAKER) 6.9 gm/dL 6.0-8.3 (test kcqe=489) ALBUMIN (BEAKER) (test 3.9 g/dL 3.5-5.0 kuie=8461) ALKALINE PHOSPHATASE 200 U/L 40-150 (BEAKER) (test knnj=840) BILIRUBIN TOTAL (BEAKER) 1.2 mg/dL 0.2-1.2 (test eygu=976) SODIUM (BEAKER) (test 137 meq/L 136-145 pevi=308) POTASSIUM (BEAKER) (test 3.3 meq/L 3.5-5.1 ogqa=274) CHLORIDE (BEAKER) (test 97 meq/L 98-107 hhuz=225) CO2 (BEAKER) (test 27 meq/L 22-29 mtzi=530) BLOOD UREA NITROGEN 3 mg/dL 7-21 (BEAKER) (test xktp=389) CREATININE (BEAKER) (test 0.57 mg/dL 0.57-1.25 tfnc=567) GLUCOSE RANDOM (BEAKER) 108 mg/dL 70-105 (test ifby=255) CALCIUM (BEAKER) (test 9.4 mg/dL 8.4-10.2 xeiq=926) AST (SGOT) (BEAKER) (test 263 U/L 5-34 tnyn=673) ALT (SGPT) (BEAKER) (test 215 U/L 6-55 izpw=807) EGFR (BEAKER) (test 166 mL/min/1.73 sq ESTIMATED GFR IS NOT afkh=4961) m ACCURATE CREATININE CLEARANCE IN PREDICTING GLOMERULAR FILTRATION RATE. ESTIMATED GFR IS NOT APPLICABLE FOR DIALYSIS PATIENTS. PROTHROMBIN [id number] 04:53:00 Test Item Value Reference Range Comments PROTIME (BEAKER) (test xzzn=608) 16.0 seconds 11.7-14.7 INR (BEAKER) (test gzce=437) 1.3 <=5.9 RECOMMENDED COUMADIN/WARFARIN INR THERAPY RANGESSTANDARD DOSE: 2.0 - 3.0 Includes: PROPHYLAXIS forvenous thrombosis, systemic embolization; TREATMENT for venous thrombosis and/or pulmonary embolus.HIGH RISK: Target INR is 2.5-3.5 for patients with mechanical heart valves.URINALYSIS W/ REFLEX URINE [id number] 18:43:00 Test Item Value Reference Range Comments COLOR (BEAKER) (test layj=232) Yellow CLARITY (BEAKER) (test xvdz=142) Clear SPECIFIC GRAVITY UA (BEAKER) (test kltu=163) 1.007 1.001-1.035 PH UA (BEAKER) (test fldm=544) 7.5 5.0-8.0 PROTEIN UA (BEAKER) (test kcux=986) 20 mg/dL Negative GLUCOSE UA (BEAKER) (test kkid=048) Negative Negative KETONES UA (BEAKER) (test zunz=610) 20 mg/dL Negative BILIRUBIN UA (BEAKER) (test uppf=108) Negative Negative BLOOD UA (BEAKER) (test bfmg=119) Trace Negative NITRITE UA (BEAKER) (test wffa=711) Negative Negative LEUKOCYTE ESTERASE UA (BEAKER) (test uvuh=566) Negative Negative UROBILINOGEN UA (BEAKER) (test bbzw=910) 2.0 mg/dL 0.2-1.0 RBC UA (BEAKER) (test xvvx=191) 3 /HPF WBC UA (BEAKER) (test yggo=631) < /HPF MUCUS (BEAKER) (test zjkx=4101) Rare SOURCE(BEAKER) (test bjck=7451) VITAMIN B12 AND [id number] 15:08:00 Test Item Value Reference Range Comments VITAMIN B12 (BEAKER) (test phbp=078) 1678 pg/mL 213-816 FOLATE (BEAKER) (test yfbw=333) 19.4 ng/mL >=7.0 [id number] 14:48:00 Test Item Value Reference Range Comments FERRITIN (BEAKER) (test xshl=086) 1698 ng/mL 5-275 IRON, TIBC, % SAT. (WITHOUT FERRITIN)[id number] 13:26:00 Test Item Value Reference Range Comments IRON (BEAKER) (test mqat=349) 44.0 ug/dL 40.0-160.0 TOTAL IRON BINDING CAPACITY (BEAKER) (test 186 ug/dL 250-450 qpze=566) IRON % SATURATION (2) (BEAKER) (test hfxa=4401) 24 % 20-55 HEPATITIS B SURFACE [id number] 13:26:00 Test Item Value Reference Range Comments HEPATITIS B SURFACE ANTIGEN (2) (BEAKER) (test Nonreactive Nonreactive okhq=0187) HEPATITIS C [id number] 13:26:00 Test Item Value Reference Range Comments HEPATITIS C ANTIBODY (BEAKER) (test deqy=758) Nonreactive Nonreactive HIV-1 ANTIGEN WITH HIV-1/2 [id number] 13:26:00 Test Item Value Reference Range Comments HIV-1 ANTIGEN WITH HIV 1\T\2 ANTIBODY (2) Nonreactive Nonreactive (BEAKER) (test zpno=7557) HEPATITIS B SURFACE [id number] 13:19:00 Test Item Value Reference Range Comments HEPATITIS B SURFACE ANTIBODY (BEAKER) (test 34.5 mIU/mL <8.0 ssty=502) HEPATITIS A ANTIBODY, [id number] 13:19:00 Test Item Value Reference Range Comments HEPATITIS A IGM ANTIBODY (BEAKER) (test Nonreactive Nonreactive tftz=962) HEPATITIS B CORE ANTIBODY, [id number] 13:19:00 Test Item Value Reference Range Comments HEPATITIS B CORE TOTAL ANTIBODY (BEAKER) (test Nonreactive Nonreactive mhfe=000) HEPATITIS A ANTIBODY, [id number] 13:19:00 Test Item Value Reference Range Comments HEPATITIS A IGG ANTIBODY (BEAKER) (test Nonreactive Nonreactive ojij=3638) PROTHROMBIN [id number] 13:00:00 Test Item Value Reference Range Comments PROTIME (BEAKER) (test mubu=358) 15.5 seconds 11.7-14.7 INR (BEAKER) (test jpzb=601) 1.2 <=5.9 RECOMMENDED COUMADIN/WARFARIN INR THERAPY RANGESSTANDARD DOSE: 2.0 - 3.0 Includes: PROPHYLAXIS forvenous thrombosis, systemic embolization; TREATMENT for venous thrombosis and/or pulmonary embolus.HIGH RISK: Target INR is 2.5-3.5 for patients with mechanical heart valves.[id number] 03:31:00 Test Item Value Reference Range Comments PHOSPHORUS (BEAKER) (test cqth=910) 3.5 mg/dL 2.3-4.7 [id number] 03:31:00 Test Item Value Reference Range Comments MAGNESIUM (BEAKER) (test wrlo=624) 1.5 mg/dL 1.6-2.6 COMPREHENSIVE METABOLIC [id number] 03:31:00 Test Item Value Reference Range Comments TOTAL PROTEIN (BEAKER) 6.5 gm/dL 6.0-8.3 (test tgsq=443) ALBUMIN (BEAKER) (test 3.7 g/dL 3.5-5.0 squf=5650) ALKALINE PHOSPHATASE 200 U/L 40-150 (BEAKER) (test gpux=947) BILIRUBIN TOTAL (BEAKER) 0.8 mg/dL 0.2-1.2 (test gocc=113) SODIUM (BEAKER) (test 142 meq/L 136-145 ilfa=877) POTASSIUM (BEAKER) (test 3.1 meq/L 3.5-5.1 eqdx=685) CHLORIDE (BEAKER) (test 103 meq/L 98-107 bxul=888) CO2 (BEAKER) (test 24 meq/L 22-29 yade=024) BLOOD UREA NITROGEN 4 mg/dL 7-21 (BEAKER) (test cbmz=933) CREATININE (BEAKER) (test 0.55 mg/dL 0.57-1.25 rcoy=235) GLUCOSE RANDOM (BEAKER) 100 mg/dL 70-105 (test qtug=534) CALCIUM (BEAKER) (test 8.5 mg/dL 8.4-10.2 vnqo=977) AST (SGOT) (BEAKER) (test 318 U/L 5-34 ztdl=600) ALT (SGPT) (BEAKER) (test 244 U/L 6-55 fkew=530) EGFR (BEAKER) (test 173 mL/min/1.73 sq ESTIMATED GFR IS NOT lmfz=5539) m ACCURATE CREATININE CLEARANCE IN PREDICTING GLOMERULAR FILTRATION RATE. ESTIMATED GFR IS NOT APPLICABLE FOR DIALYSIS PATIENTS. CBC W/PLT COUNT & AUTO [id number] 03:03:00 Test Item Value Reference Range Comments WHITE BLOOD CELL COUNT (BEAKER) (test nprn=800) 4.2 K/ L 3.5-10.5 RED BLOOD CELL COUNT (BEAKER) (test odic=892) 3.61 M/ L 4.63-6.08 HEMOGLOBIN (BEAKER) (test zmch=808) 12.3 GM/DL 13.7-17.5 HEMATOCRIT (BEAKER) (test wpqk=641) 35.9 % 40.1-51.0 MEAN CORPUSCULAR VOLUME (BEAKER) (test zffr=386) 99.4 fL 79.0-92.2 MEAN CORPUSCULAR HEMOGLOBIN (BEAKER) (test 34.1 pg 25.7-32.2 bmtn=689) MEAN CORPUSCULAR HEMOGLOBIN CONC (BEAKER) (test 34.3 GM/DL 32.3-36.5 xook=523) RED CELL DISTRIBUTION WIDTH (BEAKER) (test 12.3 % 11.6-14.4 ywhe=913) PLATELET COUNT (BEAKER) (test hdgl=712) 122 K/CU MM 150-450 MEAN PLATELET VOLUME (BEAKER) (test iqkx=959) 9.8 fL 9.4-12.4 NUCLEATED RED BLOOD CELLS (BEAKER) (test 0 /100 WBC 0-0 ktqm=486) NEUTROPHILS RELATIVE PERCENT (BEAKER) (test 70 % neyw=221) LYMPHOCYTES RELATIVE PERCENT (BEAKER) (test 17 % xkfj=657) MONOCYTES RELATIVE PERCENT (BEAKER) (test 11 % fhzf=645) EOSINOPHILS RELATIVE PERCENT (BEAKER) (test 1 % ftbt=543) BASOPHILS RELATIVE PERCENT (BEAKER) (test 1 % ssmb=449) NEUTROPHILS ABSOLUTE COUNT (BEAKER) (test 2.94 K/ L 1.78-5.38 cmla=665) LYMPHOCYTES ABSOLUTE COUNT (BEAKER) (test 0.73 K/ L 1.32-3.57 lqjq=774) MONOCYTES ABSOLUTE COUNT (BEAKER) (test 0.45 K/ L 0.30-0.82 jpxz=008) EOSINOPHILS ABSOLUTE COUNT (BEAKER) (test 0.04 K/ L 0.04-0.54 wmls=444) BASOPHILS ABSOLUTE COUNT (BEAKER) (test 0.02 K/ L 0.01-0.08 bkwf=299) IMMATURE GRANULOCYTES-RELATIVE PERCENT (BEAKER) 1 % 0-1 (test mnbc=7262) POCT-GLUCOSE [id number] 12:15:00 Test Item Value Reference Range Comments POC-GLUCOSE METER (BEAKER) 99 mg/dL 70-110 TESTED AT [address] (test xejd=0228) [facility] [id number] 06:15:00 Test Item Value Reference Range Comments MAGNESIUM (BEAKER) (test crdq=065) 1.8 mg/dL 1.6-2.6 COMPREHENSIVE METABOLIC [id number] 06:15:00 Test Item Value Reference Range Comments TOTAL PROTEIN (BEAKER) 6.6 gm/dL 6.0-8.3 (test hffz=876) ALBUMIN (BEAKER) (test 3.6 g/dL 3.5-5.0 mcpl=4272) ALKALINE PHOSPHATASE 149 U/L 40-150 (BEAKER) (test lrya=751) BILIRUBIN TOTAL (BEAKER) 0.8 mg/dL 0.2-1.2 (test vdgn=619) SODIUM (BEAKER) (test 135 meq/L 136-145 fufi=707) POTASSIUM (BEAKER) (test 3.6 meq/L 3.5-5.1 fwoh=096) CHLORIDE (BEAKER) (test 98 meq/L 98-107 ysfg=476) CO2 (BEAKER) (test 26 meq/L 22-29 sezt=992) BLOOD UREA NITROGEN 8 mg/dL 7-21 (BEAKER) (test qhyn=861) CREATININE (BEAKER) (test 0.57 mg/dL 0.57-1.25 cdny=270) GLUCOSE RANDOM (BEAKER) 100 mg/dL 70-105 (test ejtf=484) CALCIUM (BEAKER) (test 9.5 mg/dL 8.4-10.2 scsy=507) AST (SGOT) (BEAKER) (test 155 U/L 5-34 gldj=463) ALT (SGPT) (BEAKER) (test 151 U/L 6-55 rywx=701) EGFR (BEAKER) (test 166 mL/min/1.73 sq ESTIMATED GFR IS NOT odbi=2815) m ACCURATE CREATININE CLEARANCE IN PREDICTING GLOMERULAR FILTRATION RATE. ESTIMATED GFR IS NOT APPLICABLE FOR DIALYSIS PATIENTS. CBC W/PLT COUNT & AUTO [id number] 05:30:00 Test Item Value Reference Range Comments WHITE BLOOD CELL COUNT (BEAKER) (test hzjh=830) 5.1 K/ L 3.5-10.5 RED BLOOD CELL COUNT (BEAKER) (test nifr=221) 3.81 M/ L 4.63-6.08 HEMOGLOBIN (BEAKER) (test vosl=528) 13.1 GM/DL 13.7-17.5 HEMATOCRIT (BEAKER) (test tggu=895) 37.6 % 40.1-51.0 MEAN CORPUSCULAR VOLUME (BEAKER) (test vugz=845) 98.7 fL 79.0-92.2 MEAN CORPUSCULAR HEMOGLOBIN (BEAKER) (test 34.4 pg 25.7-32.2 lbxw=536) MEAN CORPUSCULAR HEMOGLOBIN CONC (BEAKER) (test 34.8 GM/DL 32.3-36.5 wtnn=464) RED CELL DISTRIBUTION WIDTH (BEAKER) (test 11.5 % 11.6-14.4 ghbb=944) PLATELET COUNT (BEAKER) (test fvlp=146) 152 K/CU MM 150-450 MEAN PLATELET VOLUME (BEAKER) (test lkov=699) 10.2 fL 9.4-12.4 NUCLEATED RED BLOOD CELLS (BEAKER) (test 0 /100 WBC 0-0 imny=353) NEUTROPHILS RELATIVE PERCENT (BEAKER) (test 71 % yobj=004) LYMPHOCYTES RELATIVE PERCENT (BEAKER) (test 14 % qhdk=493) MONOCYTES RELATIVE PERCENT (BEAKER) (test 11 % gqhz=009) EOSINOPHILS RELATIVE PERCENT (BEAKER) (test 2 % wcmf=658) BASOPHILS RELATIVE PERCENT (BEAKER) (test 1 % xakf=425) NEUTROPHILS ABSOLUTE COUNT (BEAKER) (test 3.66 K/ L 1.78-5.38 ginh=700) LYMPHOCYTES ABSOLUTE COUNT (BEAKER) (test 0.71 K/ L 1.32-3.57 kpqu=158) MONOCYTES ABSOLUTE COUNT (BEAKER) (test 0.58 K/ L 0.30-0.82 vfqr=198) EOSINOPHILS ABSOLUTE COUNT (BEAKER) (test 0.10 K/ L 0.04-0.54 cpic=616) BASOPHILS ABSOLUTE COUNT (BEAKER) (test 0.04 K/ L 0.01-0.08 bgwr=008) IMMATURE GRANULOCYTES-RELATIVE PERCENT (BEAKER) 1 % 0-1 (test ycjn=1722) POCT-GLUCOSE [id number] 11:54:00 Test Item Value Reference Range Comments POC-GLUCOSE METER (BEAKER) 83 mg/dL 70-110 TESTED AT [address] (test wilj=3648) [facility] [address] [id number] 05:54:00 Test Item Value Reference Range Comments PHOSPHORUS (BEAKER) (test zmbd=802) 2.3 mg/dL 2.3-4.7 [id number] 05:54:00 Test Item Value Reference Range Comments MAGNESIUM (BEAKER) (test htrc=174) 2.0 mg/dL 1.6-2.6 COMPREHENSIVE METABOLIC [id number] 05:54:00 Test Item Value Reference Range Comments TOTAL PROTEIN (BEAKER) 6.0 gm/dL 6.0-8.3 (test ebax=756) ALBUMIN (BEAKER) (test 3.2 g/dL 3.5-5.0 eypd=1511) ALKALINE PHOSPHATASE 134 U/L 40-150 (BEAKER) (test ndui=815) BILIRUBIN TOTAL (BEAKER) 1.1 mg/dL 0.2-1.2 (test xnmp=350) SODIUM (BEAKER) (test 134 meq/L 136-145 jszm=385) POTASSIUM (BEAKER) (test 3.6 meq/L 3.5-5.1 afpt=909) CHLORIDE (BEAKER) (test 100 meq/L 98-107 jmar=380) CO2 (BEAKER) (test 26 meq/L 22-29 dnbx=887) BLOOD UREA NITROGEN 4 mg/dL 7-21 (BEAKER) (test dyaf=721) CREATININE (BEAKER) (test 0.54 mg/dL 0.57-1.25 cccy=665) GLUCOSE RANDOM (BEAKER) 141 mg/dL 70-105 (test oydl=966) CALCIUM (BEAKER) (test 8.8 mg/dL 8.4-10.2 kace=491) AST (SGOT) (BEAKER) (test 183 U/L 5-34 kgdf=257) ALT (SGPT) (BEAKER) (test 149 U/L 6-55 jpba=337) EGFR (BEAKER) (test 176 mL/min/1.73 sq ESTIMATED GFR IS NOT fghc=7480) m ACCURATE CREATININE CLEARANCE IN PREDICTING GLOMERULAR FILTRATION RATE. ESTIMATED GFR IS NOT APPLICABLE FOR DIALYSIS PATIENTS. LACTIC ACID, [id number] 05:35:00 Test Item Value Reference Range Comments LACTATE BLOOD VENOUS (2) (BEAKER) (test 1.0 mmol/L 0.5-2.2 tcxm=6598) CBC W/PLT COUNT & AUTO [id number] 05:23:00 Test Item Value Reference Range Comments WHITE BLOOD CELL COUNT (BEAKER) (test wjuu=111) 5.0 K/ L 3.5-10.5 RED BLOOD CELL COUNT (BEAKER) (test yegw=491) 3.88 M/ L 4.63-6.08 HEMOGLOBIN (BEAKER) (test cvya=773) 13.0 GM/DL 13.7-17.5 HEMATOCRIT (BEAKER) (test kxyx=873) 38.5 % 40.1-51.0 MEAN CORPUSCULAR VOLUME (BEAKER) (test jckt=119) 99.2 fL 79.0-92.2 MEAN CORPUSCULAR HEMOGLOBIN (BEAKER) (test 33.5 pg 25.7-32.2 sebj=322) MEAN CORPUSCULAR HEMOGLOBIN CONC (BEAKER) (test 33.8 GM/DL 32.3-36.5 yqyy=712) RED CELL DISTRIBUTION WIDTH (BEAKER) (test 11.6 % 11.6-14.4 txjz=688) PLATELET COUNT (BEAKER) (test rxkm=785) 113 K/CU MM 150-450 MEAN PLATELET VOLUME (BEAKER) (test oclz=075) 10.7 fL 9.4-12.4 NUCLEATED RED BLOOD CELLS (BEAKER) (test 0 /100 WBC 0-0 vrwg=380) NEUTROPHILS RELATIVE PERCENT (BEAKER) (test 72 % hvmg=856) LYMPHOCYTES RELATIVE PERCENT (BEAKER) (test 15 % bskv=918) MONOCYTES RELATIVE PERCENT (BEAKER) (test 10 % wdak=483) EOSINOPHILS RELATIVE PERCENT (BEAKER) (test 2 % kunm=697) BASOPHILS RELATIVE PERCENT (BEAKER) (test 1 % ldsh=261) NEUTROPHILS ABSOLUTE COUNT (BEAKER) (test 3.56 K/ L 1.78-5.38 koov=948) LYMPHOCYTES ABSOLUTE COUNT (BEAKER) (test 0.76 K/ L 1.32-3.57 bcjv=977) MONOCYTES ABSOLUTE COUNT (BEAKER) (test 0.49 K/ L 0.30-0.82 mdvo=458) EOSINOPHILS ABSOLUTE COUNT (BEAKER) (test 0.10 K/ L 0.04-0.54 gzxe=386) BASOPHILS ABSOLUTE COUNT (BEAKER) (test 0.04 K/ L 0.01-0.08 hptb=952) IMMATURE GRANULOCYTES-RELATIVE PERCENT (BEAKER) 1 % 0-1 (test yozu=1433) POCT-GLUCOSE [id number] 18:44:00 Test Item Value Reference Range Comments POC-GLUCOSE METER (BEAKER) 100 mg/dL 70-110 TESTED AT [facility] [address] [facility] (test kyjm=4928) [facility] [address] [id number] 17:58:00 Test Item Value Reference Range Comments PHOSPHORUS (BEAKER) (test qywy=807) 2.3 mg/dL 2.3-4.7 [id number] 17:58:00 Test Item Value Reference Range Comments MAGNESIUM (BEAKER) (test klwi=362) 1.8 mg/dL 1.6-2.6 BASIC METABOLIC [id number] 17:58:00 Test Item Value Reference Range Comments SODIUM (BEAKER) (test 137 meq/L 136-145 eaue=396) POTASSIUM (BEAKER) (test 3.6 meq/L 3.5-5.1 eoyl=098) CHLORIDE (BEAKER) (test 102 meq/L 98-107 issy=225) CO2 (BEAKER) (test 26 meq/L 22-29 ehiv=998) BLOOD UREA NITROGEN 4 mg/dL 7-21 (BEAKER) (test fgax=875) CREATININE (BEAKER) (test 0.54 mg/dL 0.57-1.25 gbel=337) GLUCOSE RANDOM (BEAKER) 123 mg/dL 70-105 (test xnrh=474) CALCIUM (BEAKER) (test 8.7 mg/dL 8.4-10.2 byxs=362) EGFR (BEAKER) (test 177 mL/min/1.73 sq m ESTIMATED GFR IS NOT igzr=2640) ACCURATE CREATININE CLEARANCE IN PREDICTING GLOMERULAR FILTRATION RATE. ESTIMATED GFR IS NOT APPLICABLE FOR DIALYSIS PATIENTS. [id number] 16:55:00 Test Item Value Reference Range Comments MAGNESIUM (BEAKER) (test 1.6 mg/dL 1.6-2.6 Specimen slightly hemolyzed mgtu=315) [id number] 16:55:00 Test Item Value Reference Range Comments PHOSPHORUS (BEAKER) (test 2.3 mg/dL 2.3-4.7 Specimen slightly hemolyzed plrc=573) BASIC METABOLIC [id number] 16:55:00 Test Item Value Reference Range Comments SODIUM (BEAKER) (test 138 meq/L 136-145 ysmw=204) POTASSIUM (BEAKER) (test 3.7 meq/L 3.5-5.1 Specimen slightly anjy=350) hemolyzed CHLORIDE (BEAKER) (test 105 meq/L 98-107 cwvu=246) CO2 (BEAKER) (test 23 meq/L 22-29 wnqn=716) BLOOD UREA NITROGEN 4 mg/dL 7-21 (BEAKER) (test xmab=874) CREATININE (BEAKER) (test 0.51 mg/dL 0.57-1.25 Specimen slightly tbta=729) hemolyzed GLUCOSE RANDOM (BEAKER) 99 mg/dL 70-105 (test izeq=252) CALCIUM (BEAKER) (test 8.0 mg/dL 8.4-10.2 sjve=499) EGFR (BEAKER) (test 190 mL/min/1.73 sq m ESTIMATED GFR IS NOT jmop=8536) ACCURATE CREATININE CLEARANCE IN PREDICTING GLOMERULAR FILTRATION RATE. ESTIMATED GFR IS NOT APPLICABLE FOR DIALYSIS PATIENTS. POCT-GLUCOSE [id number] 12:41:00 Test Item Value Reference Range Comments POC-GLUCOSE METER (BEAKER) 100 mg/dL 70-110 TESTED AT [facility] [address] [facility] (test hkgt=0292) [facility] [address] POCT-GLUCOSE [id number] 08:07:00 Test Item Value Reference Range Comments POC-GLUCOSE METER (BEAKER) 99 mg/dL 70-110 TESTED AT [facility] [address] [facility] (test ghru=2744) [place] [address] U/S, ABDOMINAL, [id number] 08:05:00Abdomen limited area? Add comment if clarification [...] secondary to portal hypertension. Signed: [facility] Verified Date /Time: 09/30/2018 08:05:48 Reading Location: [facility] P006J Ultrasound Reading Room [id number] 07:23:00 Test Item Value Reference Range Comments PHOSPHORUS (BEAKER) (test mqwz=427) 1.2 mg/dL 2.3-4.7 [id number] 07:11:00 Test Item Value Reference Range Comments MAGNESIUM (BEAKER) (test gwnq=379) 2.3 mg/dL 1.6-2.6 COMPREHENSIVE METABOLIC [id number] 07:11:00 Test Item Value Reference Range Comments TOTAL PROTEIN (BEAKER) 5.8 gm/dL 6.0-8.3 (test krlw=656) ALBUMIN (BEAKER) (test 3.1 g/dL 3.5-5.0 cjng=5261) ALKALINE PHOSPHATASE 141 U/L 40-150 (BEAKER) (test lwaw=156) BILIRUBIN TOTAL (BEAKER) 1.1 mg/dL 0.2-1.2 (test viiz=669) SODIUM (BEAKER) (test 135 meq/L 136-145 dluk=342) POTASSIUM (BEAKER) (test 3.7 meq/L 3.5-5.1 ucur=121) CHLORIDE (BEAKER) (test 104 meq/L 98-107 rmei=997) CO2 (BEAKER) (test 24 meq/L 22-29 qwkl=064) BLOOD UREA NITROGEN 5 mg/dL 7-21 (BEAKER) (test vneg=076) CREATININE (BEAKER) (test 0.39 mg/dL 0.57-1.25 nyla=736) GLUCOSE RANDOM (BEAKER) 114 mg/dL 70-105 (test cdli=749) CALCIUM (BEAKER) (test 8.3 mg/dL 8.4-10.2 jjfe=484) AST (SGOT) (BEAKER) (test 354 U/L 5-34 pukl=366) ALT (SGPT) (BEAKER) (test 188 U/L 6-55 qioo=056) EGFR (BEAKER) (test 258 mL/min/1.73 sq ESTIMATED GFR IS NOT lkuf=5292) m ACCURATE CREATININE CLEARANCE IN PREDICTING GLOMERULAR FILTRATION RATE. ESTIMATED GFR IS NOT APPLICABLE FOR DIALYSIS PATIENTS. LACTIC ACID, [id number] 04:07:00 Test Item Value Reference Range Comments LACTATE BLOOD VENOUS (2) 0.8 mmol/L 0.5-2.2 Specimen slightly hemolyzed (BEAKER) (test jlyf=8853) CBC W/PLT COUNT & AUTO [id number] 04:00:00 Test Item Value Reference Range Comments WHITE BLOOD CELL COUNT (BEAKER) (test ekal=111) 6.1 K/ L 3.5-10.5 RED BLOOD CELL COUNT (BEAKER) (test mliw=379) 3.87 M/ L 4.63-6.08 HEMOGLOBIN (BEAKER) (test ynsp=810) 13.3 GM/DL 13.7-17.5 HEMATOCRIT (BEAKER) (test xqnd=123) 39.1 % 40.1-51.0 MEAN CORPUSCULAR VOLUME (BEAKER) (test ktmz=878) 101.0 fL 79.0-92.2 MEAN CORPUSCULAR HEMOGLOBIN (BEAKER) (test 34.4 pg 25.7-32.2 rwot=305) MEAN CORPUSCULAR HEMOGLOBIN CONC (BEAKER) (test 34.0 GM/DL 32.3-36.5 epbh=377) RED CELL DISTRIBUTION WIDTH (BEAKER) (test 12.1 % 11.6-14.4 cdxp=490) PLATELET COUNT (BEAKER) (test nkvr=277) 105 K/CU MM 150-450 MEAN PLATELET VOLUME (BEAKER) (test hdtg=433) 10.4 fL 9.4-12.4 NUCLEATED RED BLOOD CELLS (BEAKER) (test 0 /100 WBC 0-0 jrtb=719) NEUTROPHILS RELATIVE PERCENT (BEAKER) (test 74 % drze=571) LYMPHOCYTES RELATIVE PERCENT (BEAKER) (test 14 % rwzk=257) MONOCYTES RELATIVE PERCENT (BEAKER) (test 10 % qfpc=980) EOSINOPHILS RELATIVE PERCENT (BEAKER) (test 1 % xzqa=066) BASOPHILS RELATIVE PERCENT (BEAKER) (test 1 % znhg=050) NEUTROPHILS ABSOLUTE COUNT (BEAKER) (test 4.52 K/ L 1.78-5.38 ydcw=908) LYMPHOCYTES ABSOLUTE COUNT (BEAKER) (test 0.84 K/ L 1.32-3.57 ytgl=512) MONOCYTES ABSOLUTE COUNT (BEAKER) (test 0.62 K/ L 0.30-0.82 qwuv=215) EOSINOPHILS ABSOLUTE COUNT (BEAKER) (test 0.06 K/ L 0.04-0.54 acss=208) BASOPHILS ABSOLUTE COUNT (BEAKER) (test 0.03 K/ L 0.01-0.08 spfu=473) IMMATURE GRANULOCYTES-RELATIVE PERCENT (BEAKER) 0 % 0-1 (test cktt=8720) [id number] 01:32:00 Test Item Value Reference Range Comments PROCALCITONIN (BEAKER) (test llnn=3526) 0.48 ng/mL <0.05 SEPSIS RISK (ng/mL)Low: 0.05-0.50Intermediate: 0.51-2.00High: & gt;=2.01BASIC METABOLIC [id number] 00:58:00 Test Item Value Reference Range Comments SODIUM (BEAKER) (test 135 meq/L 136-145 engs=555) POTASSIUM (BEAKER) (test 3.4 meq/L 3.5-5.1 tajp=436) CHLORIDE (BEAKER) (test 104 meq/L 98-107 spzl=636) CO2 (BEAKER) (test 22 meq/L 22-29 jqla=469) BLOOD UREA NITROGEN 7 mg/dL 7-21 (BEAKER) (test zfxh=392) CREATININE (BEAKER) (test 0.55 mg/dL 0.57-1.25 rrzp=205) GLUCOSE RANDOM (BEAKER) 113 mg/dL 70-105 (test mpae=060) CALCIUM (BEAKER) (test 8.4 mg/dL 8.4-10.2 txgs=758) EGFR (BEAKER) (test 174 mL/min/1.73 sq m ESTIMATED GFR IS NOT ixfy=3550) ACCURATE CREATININE CLEARANCE IN PREDICTING GLOMERULAR FILTRATION RATE. ESTIMATED GFR IS NOT APPLICABLE FOR DIALYSIS PATIENTS. [id number] 00:57:00 Test Item Value Reference Range Comments MAGNESIUM (BEAKER) (test sebn=140) 1.5 mg/dL 1.6-2.6 LACTIC ACID, [id number] 00:37:00 Test Item Value Reference Range Comments LACTATE BLOOD VENOUS (2) 0.7 mmol/L 0.5-2.2 Specimen moderately hemolyzed (BEAKER) (test gbin=0171) POCT-GLUCOSE [id number] 00:25:00 Test Item Value Reference Range Comments POC-GLUCOSE METER (BEAKER) 101 mg/dL 70-110 TESTED AT [address] (test jixz=7127) [facility] [address] POCT-GLUCOSE [id number] 18:32:00 Test Item Value Reference Range Comments POC-GLUCOSE METER (BEAKER) 76 mg/dL 70-110 TESTED AT [address] (test pkng=5458) [facility] [address] [id number] 15:15:00 Test Item Value Reference Range Comments POTASSIUM (BEAKER) (test tvpq=307) 3.4 meq/L 3.5-5.1 [id number] 15:15:00 Test Item Value Reference Range Comments MAGNESIUM (BEAKER) (test ctbs=635) 2.1 mg/dL 1.6-2.6 CT, [id number] 12:38:00FINAL REPORT CT abdomen with and without [...] Verified Date/Time: 09/29/2018 12:38:07 Reading Location : [address] Consult Reading Room POCT-GLUCOSE [id number] 11:49:00 Test Item Value Reference Range Comments POC-GLUCOSE METER (BEAKER) 83 mg/dL 70-110 TESTED AT [facility] [address] [place] [address] (test beci=6656) [facility] [address] [id number] 10:49:00 Test Item Value Reference Range Comments TRIGLYCERIDES (BEAKER) (test 71 mg/dL Specimen slightly hemolyzed wxxa=977) TRIGLYCERIDE REFERENCE RANGELow Risk <150Borderline Risk 150-199High Risk 200-499Very High Risk>=[id number] 05:09:00 Test Item Value Reference Range Comments LIPASE (BEAKER) (test nvhk=509) > U/L 8-78 [id number] 04:35:00 Test Item Value Reference Range Comments MAGNESIUM (BEAKER) (test 1.6 mg/dL 1.6-2.6 Specimen slightly hemolyzed basd=485) [id number] 04:35:00 Test Item Value Reference Range Comments PHOSPHORUS (BEAKER) (test 3.2 mg/dL 2.3-4.7 Specimen slightly hemolyzed pmkh=294) COMPREHENSIVE METABOLIC [id number] 04:35:00 Test Item Value Reference Range Comments TOTAL PROTEIN (BEAKER) 6.8 gm/dL 6.0-8.3 Specimen slightly (test phml=855) hemolyzed ALBUMIN (BEAKER) (test 3.8 g/dL 3.5-5.0 Specimen slightly jgse=6507) hemolyzed ALKALINE PHOSPHATASE 130 U/L 40-150 (BEAKER) (test dsnq=171) BILIRUBIN TOTAL (BEAKER) 1.7 mg/dL 0.2-1.2 Specimen slightly (test ginl=890) hemolyzed SODIUM (BEAKER) (test 138 meq/L 136-145 ktjn=259) POTASSIUM (BEAKER) (test 3.7 meq/L 3.5-5.1 Specimen slightly mqcw=758) hemolyzed CHLORIDE (BEAKER) (test 103 meq/L 98-107 zmgs=750) CO2 (BEAKER) (test 17 meq/L 22-29 jqfb=344) BLOOD UREA NITROGEN 9 mg/dL 7-21 (BEAKER) (test dciy=199) CREATININE (BEAKER) (test 0.65 mg/dL 0.57-1.25 Specimen slightly skqz=509) hemolyzed GLUCOSE RANDOM (BEAKER) 103 mg/dL 70-105 (test tfyw=986) CALCIUM (BEAKER) (test 8.7 mg/dL 8.4-10.2 xltd=644) AST (SGOT) (BEAKER) (test 151 U/L 5-34 Specimen slightly svfc=381) hemolyzed ALT (SGPT) (BEAKER) (test 143 U/L 6-55 Specimen slightly lvuk=158) hemolyzed EGFR (BEAKER) (test 143 mL/min/1.73 sq ESTIMATED GFR IS NOT minq=2572) m ACCURATE CREATININE CLEARANCE IN PREDICTING GLOMERULAR FILTRATION RATE. ESTIMATED GFR IS NOT APPLICABLE FOR DIALYSIS PATIENTS. PROTHROMBIN [id number] 04:34:00 Test Item Value Reference Range Comments PROTIME (BEAKER) (test esha=005) 14.6 seconds 11.7-14.7 INR (BEAKER) (test ckal=529) 1.1 <=5.9 RECOMMENDED COUMADIN/WARFARIN INR THERAPY RANGESSTANDARD DOSE: 2.0 - 3.0 Includes: PROPHYLAXIS forvenous thrombosis, systemic embolization; TREATMENT for venous thrombosis and/or pulmonary embolus.HIGH RISK: Target INR is 2.5-3.5 for patients with mechanical heart valves.CBC W/PLT COUNT & AUTO [id number] 04:09:00 Test Item Value Reference Range Comments WHITE BLOOD CELL COUNT (BEAKER) (test smmb=942) 6.2 K/ L 3.5-10.5 RED BLOOD CELL COUNT (BEAKER) (test caps=385) 4.33 M/ L 4.63-6.08 HEMOGLOBIN (BEAKER) (test qawg=891) 15.0 GM/DL 13.7-17.5 HEMATOCRIT (BEAKER) (test tfkw=265) 43.2 % 40.1-51.0 MEAN CORPUSCULAR VOLUME (BEAKER) (test mwse=352) 99.8 fL 79.0-92.2 MEAN CORPUSCULAR HEMOGLOBIN (BEAKER) (test 34.6 pg 25.7-32.2 tuxq=822) MEAN CORPUSCULAR HEMOGLOBIN CONC (BEAKER) (test 34.7 GM/DL 32.3-36.5 tcsl=819) RED CELL DISTRIBUTION WIDTH (BEAKER) (test 12.4 % 11.6-14.4 zcsk=238) PLATELET COUNT (BEAKER) (test ttvi=850) 160 K/CU MM 150-450 MEAN PLATELET VOLUME (BEAKER) (test ckrw=246) 10.4 fL 9.4-12.4 NUCLEATED RED BLOOD CELLS (BEAKER) (test 0 /100 WBC 0-0 slyx=071) NEUTROPHILS RELATIVE PERCENT (BEAKER) (test 81 % afce=435) LYMPHOCYTES RELATIVE PERCENT (BEAKER) (test 7 % tzbq=861) MONOCYTES RELATIVE PERCENT (BEAKER) (test 10 % xeql=096) EOSINOPHILS RELATIVE PERCENT (BEAKER) (test 0 % ding=116) BASOPHILS RELATIVE PERCENT (BEAKER) (test 1 % dabp=881) NEUTROPHILS ABSOLUTE COUNT (BEAKER) (test 5.01 K/ L 1.78-5.38 umlr=053) LYMPHOCYTES ABSOLUTE COUNT (BEAKER) (test 0.44 K/ L 1.32-3.57 rcca=568) MONOCYTES ABSOLUTE COUNT (BEAKER) (test 0.62 K/ L 0.30-0.82 asrr=154) EOSINOPHILS ABSOLUTE COUNT (BEAKER) (test 0.01 K/ L 0.04-0.54 jlmt=340) BASOPHILS ABSOLUTE COUNT (BEAKER) (test 0.03 K/ L 0.01-0.08 ncop=670) IMMATURE GRANULOCYTES-RELATIVE PERCENT (BEAKER) 1 % 0-1 (test ylab=2957)
[2019-09-26] MEDS ORDERED: NA CHLORIDE 0.9% 1,000 ML ONE (20:35)
[2019-09-26 20:52] LABS: Absolute Lymphocytes (CBC) 2.6 K/uL (0.7-4.9); Basophils % 0.4 % (0-1.3); Hematocrit 43.8 % (39.6-49.0); MPV 8.1 fL (7.6-11.3); RBC Red Blood Cell Count 5.16 M/uL (4.33-5.43)
[2019-09-26 20:58] LABS: Protime INR 0.96
[2019-09-26] MEDS ORDERED: ONDANSETRON 4 MG/2 ML VIAL ONE (20:58)
[2019-09-26] MEDS ORDERED: MORPHINE 2 MG/ML SYR ONE (20:58)
[2019-09-26 21:11] LABS: ALT/SGPT 34 U/L (12-78); AST/SGOT 27 U/L (15-37); Albumin 3.8 g/dL (3.4-5.0); Alkaline Phosphatase 118 U/L (45-117); BUN Blood Urea Nitrogen 15 mg/dL (7-18); Bicarbonate 26 mmol/L (21-32); Bilirubin Direct < 0.1 mg/dL (0-0.2); Bilirubin Total 0.2 mg/dL (0.2-1.0); Glucose Level 100 mg/dL (74-106); Lipase 1044 U/L (73-393); Protein, Total 7.5 g/dL (6.4-8.2); Sodium Level 140 mmol/L (136-145)
[2019-09-26] MEDS ORDERED: FENTANYL CITR 100 MCG/2 ML ONE ×2 (22:01→23:59)
[2019-09-26] MEDS ORDERED: POTASSIUM 25 MEQ EFFERV TAB ONE (22:26)
[2019-09-26 22:27] LABS: Urine Blood NEGATIVE (NEG); Urine Glucose NEGATIVE (NEG); Urine Protein NEGATIVE (NEG)
[2019-09-26 22:47] LABS: Barbiturates NEGATIVE (NEGATIVE); Benzodiazepines NEGATIVE (NEGATIVE); Cocaine NEGATIVE (NEGATIVE); METHAMPHETAM NEGATIVE (NEGATIVE); Methadone NEGATIVE (NEGATIVE); Opiates NEGATIVE (NEGATIVE); Phencyclidine NEGATIVE (NEGATIVE); THC Cannibis NEGATIVE (NEGATIVE)
[2019-09-26] MEDS ORDERED: PANTOPRAZOLE 40 MG INJ ONE ×2 (23:19→23:59)
--- NOTE | 2019-09-26 23:48 | EDPHYS ---
Physician Documentation [facility] Name: Jonathan Gutierrez Age: 33 yrs Sex: Male : 1985 Arrival Date: 09/26/2019 Time: 18:56 Bed 19 Private MD: ED Physician Justin Rowe HPI: 09/26 03:34 This 33 yrs old Male presents to ER via Ambulatory with complaints of tw4 ABDOMNAL PAIN. 03:40 The patient presents with abdominal pain in the epigastric area, in the left upper tw4 quadrant. Onset: The symptoms/episode began/occurred today. The symptoms do not radiate. Associated signs and symptoms: Pertinent positives: blood in stools. The symptoms are described as sharp. Modifying factors: The symptoms are alleviated by. Severity of pain: At its worst the pain was moderate in the emergency department the pain is unchanged. The patient has not experienced similar symptoms in the past. Historical: - Allergies: 09/25 19:16 No Known Allergies; aj1 - Home Meds: 19:16 Propranolol Oral [Active]; Protonix Oral [Active]; aj1 - PMHx: 19:16 ADD/ADHD; etoh abuse; Hypertension; liver "spot"; Pancreatitis; aj1 - Immunization history:: Flu vaccine is up to date. - Social history:: Smoking status: Patient reports the use of cigarette tobacco products, smokes one pack cigarettes per day. ROS: 09/26 03:40 Abdomen/GI: Positive for abdominal pain, nausea and vomiting, nausea, vomiting, and tw4 diarrhea, nausea, vomiting, black/tarry stool, Negative for constipation, abdominal cramps, abdominal distension, anorexia, dysphagia, hematemesis. 06:37 Constitutional: Negative for fever, chills, and weight loss, Eyes: Negative for injury, tw4 pain, redness, and discharge, Cardiovascular: Negative for chest pain, palpitations, and edema, Respiratory: Negative for shortness of breath, cough, wheezing, and pleuritic chest pain, Back: Negative for injury and pain, MS/Extremity: Negative for injury and deformity, Skin: Negative for injury, rash, and discoloration, Neuro: Negative for headache, weakness, numbness, tingling, and seizure. Exam: 03:40 Constitutional: This is a well developed, well nourished patient who is awake, alert, tw4 and in no acute distress. Head/Face: Normocephalic, atraumatic. Chest/axilla: Normal chest wall appearance and motion. Nontender with no deformity. No lesions are appreciated. Cardiovascular: Regular rate and rhythm with a normal S1 and S2. No gallops, murmurs, or rubs. Normal PMI, no JVD. No pulse deficits. Respiratory: Lungs have equal breath sounds bilaterally, clear to auscultation and percussion. No rales, rhonchi or wheezes noted. No increased work of breathing, no retractions or nasal flaring. Back: No spinal tenderness. No costovertebral tenderness. Full range of motion. MS/ Extremity: Pulses equal, no cyanosis. Neurovascular intact. Full, normal range of motion. Neuro: Awake and alert, GCS 15, oriented to person, place, time, and situation. Cranial nerves II-XII grossly intact. Motor strength 5/5 in all extremities. Sensory grossly intact. Cerebellar exam normal. Normal gait. 03:40 Abdomen/GI: Inspection: abdomen appears normal, Bowel sounds: diminished, Palpation: moderate abdominal tenderness, in the epigastric area. Vital Signs: 09/25 19:14 BP 142 / 107; Pulse 126; Resp 20; Temp 98.8; Pulse Ox 100% on R/A; Weight 68.04 kg (R); aj1 Height 5 ft. 11 in. (180.34 cm) (R); Pain 8/10; 20:23 BP 116 / 77; Pulse 106; Resp 19; Pulse Ox 98% on R/A; ae4 21:51 BP 118 / 77; Pulse 89; Resp 18; Pulse Ox 100% on R/A; ae4 23:39 Pulse 89; Resp 18; Pulse Ox 100% on R/A; mg2 19:14 Body Mass Index 20.92 (68.04 kg, 180.34 cm) aj1 MDM: 20:09 Patient medically screened. tw4 09/26 03:40 Differential diagnosis: bowel obstruction, cholecystitis, Cholelithiasis. Data tw4 reviewed: vital signs, nurses notes. Data interpreted: Pulse oximetry: Interpretation: normal. Counseling: I had a detailed discussion with the patient and/or guardian regarding: the historical points, exam findings, and any diagnostic results supporting the discharge/admit diagnosis. Medication response: morphine partially relieved the patient's pain. Response to treatment: and as a result, I will admit patient. Physician consultation: Wilton Mancilla MD regarding admission, patient's condition, and will see patient in ED. 09/25 20:09 Order name: Basic Metabolic Panel; Complete Time: 21:50 [facility] 09/25 21:50 Interpretation: Normal except: K 3.0; CA 8.4. [facility] 09/25 20:09 Order name: CBC with Diff; Complete Time: 21:50 [facility] 09/25 21:50 Interpretation: Normal except: PLT 146; RDW 15.3. [facility] 09/25 20:09 Order name: Creatinine for Radiology; Complete Time: 21:50 [facility] 09/25 20:09 Order name: Hepatic Function; Complete Time: 21:50 [facility] 09/25 21:50 Interpretation: Normal except: ALK 118; GLOB 3.7; A/G 1.0. [facility] 09/25 20:09 Order name: Lipase; Complete Time: 21:50 [facility] 09/25 21:50 Interpretation: Normal except: LIP 1044. [facility] 09/25 20:09 Order name: PT-INR; Complete Time: 21:50 [facility] 09/25 20:09 Order name: Ptt, Activated; Complete Time: 21:50 [facility] 09/25 22:10 Order name: Urine Dipstick--Ancillary (enter results) 09/25 22:10 Order name: Urine Drug Screen [facility] 09/25 23:56 Order name: Hematocrit [facility] 09/25 23:56 Order name: Hemoglobin [facility] 09/26 00:16 Order name: Urinalysis [facility] 09/26 00:16 Order name: CBC with Automated Diff [facility] 09/26 00:17 Order name: CBC with Automated Diff [facility] 09/25 21:51 Order name: CT Abd/Pelvis - IV Contrast Only [facility] 09/26 00:17 Order name: Comprehensive Metabolic Panel [facility] 09/26 00:17 Order name: Comprehensive Metabolic Panel [facility] 09/26 00:17 Order name: Lipase [facility] 09/26 00:17 Order name: Lipase [facility] 09/26 00:17 Order name: Lipid Profile [facility] 09/26 00:17 Order name: Lipid Profile [facility] 09/26 00:17 Order name: Magnesium [facility] 09/26 00:17 Order name: Magnesium [facility] 09/26 00:17 Order name: Phosphorus [facility] 09/26 00:17 Order name: Phosphorus [facility] 09/25 20:09 Order name: IV Saline Lock; Complete Time: 20:48 tw4 09/25 20:09 Order name: Labs collected and sent; Complete Time: 20:48 tw4 09/25 22:10 Order name: Urine Dipstick-Ancillary (obtain specimen); Complete Time: 22:28 tw4 09/26 00:16 Order name: NPO EDMS Administered Medications: 09/25 20:48 Drug: NS 0.9% 1000 ml Route: IV; Rate: 1 bolus; Site: right forearm; ae4 21:51 Follow up: IV Status: Completed infusion; IV Intake: 1000ml ae4 20:58 Drug: Zofran (Ondansetron) 4 mg Route: IVP; Site: right forearm; ae4 21:51 Follow up: Response: Nausea is decreased ae4 21:00 Drug: morphine 2 mg Route: IVP; Site: right forearm; ae4 21:50 Follow up: Response: Pain is unchanged, physician notified; RASS: Agitated (+2) ae4 22:00 Drug: fentaNYL (PF) 50 mcg Route: IVP; Site: right forearm; ae4 22:27 Follow up: Response: Pain is decreased; RASS: Alert and Calm (0) ae4 22:35 Drug: Potassium Effervescent Tablet 50 mEq Route: PO; mg2 23:40 Follow up: Response: No adverse reaction mg2 23:31 Drug: ProTONIX 40 mg Route: IVP; Site: right antecubital; mg2 23:40 Follow up: Response: No adverse reaction mg2 23:59 Drug: fentaNYL (PF) 50 mcg Route: IVP; Site: right antecubital; mg2 23:59 Follow up: Response: No adverse reaction mg2 09/26 00:00 Drug: ProTONIX 40 mg Route: IVP; Site: right antecubital; mg2 01:00 Follow up: Response: No adverse reaction mg2 02:38 Drug: morphine 4 mg Route: IVP; Site: right forearm; mg2 04:34 Follow up: Response: No adverse reaction mg2 Disposition: 09/26/19 23:47 Hospitalization ordered by Wilton Mancilla for Inpatient Admission. Preliminary diagnosis is Acute pancreatitis. - Bed requested for Intensive Care Unit. - Status is Inpatient Admission. jl7 - Condition is Stable. - Problem is new. - Symptoms have improved. Signatures: Dispatcher [employer] EDEle Fraser, RN RN aj1 Marcia Duran RN AMALIA dw Toy [place] RN RN jl7 Justin Rowe MD MD tw4 Cheikh Jordan, RN RN mg2 Mj Cage RN RN ae4 Corrections: (The following items were deleted from the chart) 09/25 23:48 23:47 Hospitalization Ordered by Wilton Mancilla MD for Inpatient Admission. Preliminary 4 diagnosis is Acute pancreatitis. Bed requested for Telemetry/MedSurg (Inpatient). Status is Inpatient Admission. Condition is Stable. Problem is new. Symptoms have improved. 09/26 16:54 09/25 23:48 09/26/2019 23:47 Hospitalization Ordered by Wilton Mancilla MD for Inpatient dw Admission. Preliminary diagnosis is Acute pancreatitis. Bed requested for [facility] ER HOLD. Status is Inpatient Admission. Condition is Stable. Problem is new. Symptoms have improved. 09/26 18:03 16:54 09/26/2019 23:47 Hospitalization Ordered by Wilton Mancilla MD for Inpatient jl7 Admission. Preliminary diagnosis is Acute pancreatitis. Bed requested for Intensive Care Unit. Status is Inpatient Admission. Condition is Stable. Problem is new. Symptoms have improved. dw
--- NOTE | 2019-09-26 23:48 | ER ---
Nurse's Notes [facility] Name: Jonathan Gutierrez Age: 33 yrs Sex: Male : 1985 Arrival Date: 09/26/2019 Time: 18:56 Bed 19 Private MD: Diagnosis: Acute pancreatitis Presentation: 09/25 19:14 Chief complaint: Patient states: He has been losing weight, vomiting, and having bloody aj1 stools for the past week. Patient states that he has had this issue before and he usually follows up with Dr. Walsh about it. Coronavirus screen: The patient has NOT traveled to a country currently being monitored by the [facility] within the last 14 days. Ebola Screen: Patient denies travel to an Ebola-affected area in the 21 days before illness onset. Initial Sepsis Screen: Does the patient meet any 2 criteria? HR > 90 bpm. No. Patient's initial sepsis screen is negative. Does the patient have a suspected source of infection? Yes: Acute abdominal pain. Risk Assessment: Do you want to hurt yourself or someone else? Patient reports no desire to harm self or others. 19:14 Method Of Arrival: Ambulatory aj1 19:14 Acuity: NEO 2 aj1 22:25 Onset of symptoms was September 24, 2019. ae4 Triage Assessment: 19:14 General: Appears in no apparent distress. uncomfortable, Behavior is calm, cooperative, aj1 appropriate for age. Pain: Complains of pain in abdomen. Neuro: Level of Consciousness is awake, alert, obeys commands. Cardiovascular: Patient's skin is warm and dry. Respiratory: Airway is patent Respiratory effort is even, unlabored, Respiratory pattern is regular, symmetrical. GI: Reports bloody stool, nausea, vomiting. Historical: - Allergies: 19:16 No Known Allergies; aj1 - Home Meds: 19:16 Propranolol Oral [Active]; Protonix Oral [Active]; aj1 - PMHx: 19:16 ADD/ADHD; etoh abuse; Hypertension; liver "spot"; Pancreatitis; aj1 - Immunization history:: Flu vaccine is up to date. - Social history:: Smoking status: Patient reports the use of cigarette tobacco products, smokes one pack cigarettes per day. Screenin:08 Abuse screen: Denies threats or abuse. Denies injuries from another. Nutritional ae4 screening: No deficits noted. Tuberculosis screening: No symptoms or risk factors identified. Fall Risk None identified. Assessment: 20:00 Reassessment: Patient appears agitated and states he has been waiting a long time. ae4 Provided patient teaching on ER wait times and notified provider. 21:00 Reassessment: No changes from previously documented assessment. Patient and/or family ae4 updated on plan of care and expected duration. Pain level reassessed. 22:08 Reassessment: Patient appears in no apparent distress at this time. No changes from ae4 previously documented assessment. 23:39 Reassessment: Patient appears in no apparent distress at this time. Patient and/or mg2 family updated on plan of care and expected duration. Pain level reassessed. Patient is alert, oriented x 3, equal unlabored respirations, skin warm/dry/pink. Vital Signs: 19:14 BP 142 / 107; Pulse 126; Resp 20; Temp 98.8; Pulse Ox 100% on R/A; Weight 68.04 kg (R); aj1 Height 5 ft. 11 in. (180.34 cm) (R); Pain 8/10; 20:23 BP 116 / 77; Pulse 106; Resp 19; Pulse Ox 98% on R/A; ae4 21:51 BP 118 / 77; Pulse 89; Resp 18; Pulse Ox 100% on R/A; ae4 23:39 Pulse 89; Resp 18; Pulse Ox 100% on R/A; mg2 19:14 Body Mass Index 20.92 (68.04 kg, 180.34 cm) aj1 ED Course: 18:56 Patient arrived in ED. rg4 19:14 Arm band placed on Patient placed in an exam room. aj1 19:15 Triage completed. aj1 19:48 Justin Rowe MD is Attending Physician. tw4 20:00 Inserted saline lock: 20 gauge in right antecubital area, using aseptic technique. mg2 Blood collected. by AMALIA Moore. 20:07 Mj Cage, AMALIA is Primary Nurse. ae4 20:24 Bed in low position. Call light in reach. Side rails up X 1. Adult w/ patient. Pulse ox ae4 on. NIBP on. Warm blanket given. 22:22 CT Abd/Pelvis - IV Contrast Only In Process Unspecified. EDMS 23:38 No provider procedures requiring assistance completed. mg2 23:47 Wilton Mancilla MD is Hospitalizing Provider. tw4 09/26 18:04 Patient admitted, IV remains in place. intact, No redness/swelling at site. jl7 Administered Medications: 09/25 20:48 Drug: NS 0.9% 1000 ml Route: IV; Rate: 1 bolus; Site: right forearm; ae4 21:51 Follow up: IV Status: Completed infusion; IV Intake: 1000ml ae4 20:58 Drug: Zofran (Ondansetron) 4 mg Route: IVP; Site: right forearm; ae4 21:51 Follow up: Response: Nausea is decreased ae4 21:00 Drug: morphine 2 mg Route: IVP; Site: right forearm; ae4 21:50 Follow up: Response: Pain is unchanged, physician notified; RASS: Agitated (+2) ae4 22:00 Drug: fentaNYL (PF) 50 mcg Route: IVP; Site: right forearm; ae4 22:27 Follow up: Response: Pain is decreased; RASS: Alert and Calm (0) ae4 22:35 Drug: Potassium Effervescent Tablet 50 mEq Route: PO; mg2 23:40 Follow up: Response: No adverse reaction mg2 23:31 Drug: ProTONIX 40 mg Route: IVP; Site: right antecubital; mg2 23:40 Follow up: Response: No adverse reaction mg2 23:59 Drug: fentaNYL (PF) 50 mcg Route: IVP; Site: right antecubital; mg2 23:59 Follow up: Response: No adverse reaction mg2 09/26 00:00 Drug: ProTONIX 40 mg Route: IVP; Site: right antecubital; mg2 01:00 Follow up: Response: No adverse reaction mg2 02:38 Drug: morphine 4 mg Route: IVP; Site: right forearm; mg2 04:34 Follow up: Response: No adverse reaction mg2 Intake: 09/25 21:51 IV: 1000ml; Total: 1000ml. ae4 Outcome: 23:47 Decision to Hospitalize by Provider. tw4 09/26 18:03 Patient left the ED. jl7 18:04 Admitted to Med/surg accompanied by yong, via wheelchair, room ICU 7 overflow, with jl7 chart, Report called to AMALIA Knowles 18:04 Condition: stable 18:04 Discharge instructions given to patient, Instructed on the need for admit, Demonstrated understanding of instructions. Signatures: Dispatcher [employer] Ele Gould RN RN aj1 Shea Pruett rg4 Toy [place] RN RN jl7 Justin Rowe MD MD tw4 Cheikh Jordan RN RN mg2 Mj Cage RN RN ae4 Corrections: (The following items were deleted from the chart) 09/25 19:16 19:14 Acuity: NEO 3 aj1 aj1
[2019-09-27] MEDS ORDERED: ACETAMINOPHEN 500 MG TAB PO PRN (00:04)
[2019-09-27] MEDS ORDERED: MAGNESIUM HYDROXIDE 8% 30 ML PO PRN (00:04)
[2019-09-27] MEDS ORDERED: NA CHLORIDE 0.9% 1,000 ML IV SCH ×2 (01:00)
[2019-09-27] MEDS: ALPRAZOLAM 0.25 MG TABLET PO PRN ×2 (01:56→20:49)
[2019-09-27] MEDS ORDERED: ALPRAZOLAM 0.25 MG TABLET ONE (01:56)
[2019-09-27] MEDS ORDERED: ACETAMINOPHEN 500 MG TAB ONE ×2 (01:57→16:42)
[2019-09-27] MEDS ORDERED: NA CHLORIDE 0.9% 500 ML IV ONE (02:29)
[2019-09-27] MEDS ORDERED: MORPHINE 4 MG/ML SYR ONE (02:29)
--- NOTE | 2019-09-27 04:40 | P.HP ---
Certification for Inpatient Patient admitted to: Inpatient With expected LOS: >2 Midnights Patient will require the following post-hospital care: None Practitioner: I am a practitioner with admitting privileges, knowledge of patient current condition, hospital course, and medical plan of care. Services: Services provided to patient in accordance with Admission requirements found in Title 42 Section 412.3 of the Code of Federal Regulations Patient History Date of Service: 09/27/19 Reason for admission: Acute pancreatitis History of Present Illness: Patient is a 33-year-old gentleman with repeated admissions to our hospital for acute pancreatitis. Patient has alcoholic pancreatitis and has been drinking heavily. He states he has been drinking heavy for the last 2 days. He states he drank a gallon of vodka. Patient started having severe epigastric tenderness. He came into the ER and he was found have an elevated lipase level. He has been having intractable nausea and vomiting as well. He will be admitted to the hospital for further evaluation. Allergies No Known Allergies Allergy (Verified 06/01/19 21:20) Home Medications: Thiamine HCl 100 mg PO DAILY #30 tablet 06/04/19 Propranolol [Inderal*] 40 mg PO DAILY 07/29/19 Sucralfate [Carafate*] 1 tab PO SEECOM 07/29/19 Ciprofloxacin HCl [Cipro 500 MG Tablet] 500 mg PO BID #14 tab 08/01/19 Codeine/APAP [Tylenol W/Codeine #3 tab] 1 tab PO TIDP PRN #30 tab 08/01/19 Pantoprazole [Protonix Tab*] 40 mg PO DAILY #30 tab 08/01/19 metroNIDAZOLE [Flagyl] 500 mg PO Q8H #21 tablet 08/01/19 - Past Medical/Surgical History Diabetic: No -: Chronic pancreatitis -: Fatty liver -: Alcohol abuse -: Tobacco abuse -: Gastrointestinal bleeding -: HTN -: tonsillectomy Psychosocial/ Personal History: Patient is single - Family History Father Notes: alcohol abuse with myocardial infarction Mother History Unknown: Yes Notes: reports no medical history - Social History Smoking Status: Current every day smoker Alcohol use: Yes Caffeine use: No Place of Residence: Home Review of Systems 10-point ROS is otherwise unremarkable Physical Examination - Vital Signs Temperature: 99 F Blood Pressure: 140/70 Pulse: 88 Respirations: 18 Pulse Ox (%): 96 - Physical Exam General: Alert, In no apparent distress, Oriented x3 HEENT: Atraumatic, PERRLA, Mucous membr. moist/pink, EOMI, Sclerae nonicteric Neck: Supple, 2+ carotid pulse no bruit, No LAD, Without JVD or thyroid abnormality Respiratory: Clear to auscultation bilaterally, Normal air movement Cardiovascular: Regular rate/rhythm, Normal S1 S2, No murmurs Gastrointestinal: Normal bowel sounds, Soft and benign, Non-distended, No guarding, Tenderness, Rebound Musculoskeletal: No tenderness Integumentary: No rashes Neurological: Normal gait, Normal speech, Normal strength at 5/5 x4 extr, Normal tone, Sensation intact, Cranial nerves 3-12 intact, Normal affect Lymphatics: No axilla or inguinal lymphadenopathy - Studies Laboratory Data (last 24 hrs) 09/26/19 20:40: PT 11.3, INR 0.96, APTT 26.4 09/26/19 20:40: Creatinine 0.73 09/26/19 20:40: WBC 10.4, Hgb 15.1, Hct 43.8, Plt Count 146 L 09/26/19 20:40: Sodium 140, Potassium 3.0 L, BUN 15, Creatinine 0.72, Glucose 100, Total Bilirubin 0.2, AST 27, ALT 34, Alkaline Phosphatase 118 H, Lipase 1044 H Assessment & Plan - Problems (Diagnosis) (1) Acute on chronic pancreatitis Current Visit: No Status: Acute (2) Alcoholic pancreatitis Current Visit: No Status: Acute (3) Fatty liver disease, nonalcoholic Current Visit: No Status: Acute (4) Lower GI bleeding Current Visit: No Status: Acute (5) Alcohol abuse Current Visit: No Status: Chronic - Plan Plan: 1. Aggressive IV hydration 2. Pain control 3. Monitor H&H/patient has a history of internal hemorrhoids with a recent colonoscopy. 4. NPO 5. Monitor lipase and renal function 6. Monitor volume status and pulmonary status 7. Compliance Representative regarding alcohol cessation 8. GI and DVT prophylaxis Discharge Plan: Home Plan to discharge in: Greater than 2 days - Advance Directives Does patient have a Living Will: No Does patient have a Durable POA for Healthcare: No - Code Status/Comfort Care Code Status Assessed: Yes Code Status: Full Code Critical Care: No Time Spent Managing PTS Care (In Minutes): 45
[2019-09-27 04:51] LABS: Absolute Lymphocytes (CBC) 1.8 K/uL (0.7-4.9); Basophils % 0.4 % (0-1.3); Hematocrit 36.1 % (39.6-49.0); Lymphocytes % 32.4 % (15.3-44.8); MPV 8.6 fL (7.6-11.3); RBC Red Blood Cell Count 4.28 M/uL (4.33-5.43)
[2019-09-27 05:05] LABS: ALT/SGPT 25 U/L (12-78); AST/SGOT 18 U/L (15-37); Albumin 3.1 g/dL (3.4-5.0); Alkaline Phosphatase 95 U/L (45-117); BUN Blood Urea Nitrogen 12 mg/dL (7-18); Bicarbonate 28 mmol/L (21-32); Bilirubin Total 0.4 mg/dL (0.2-1.0); Glucose Level 100 mg/dL (74-106); HDL Cholesterol 52 mg/dL (40-60); LDL Cholesterol, Calculated 63 (<130); Lipase 404 U/L (73-393); Magnesium 1.6 mg/dL (1.8-2.4); Phosphorus 3.5 mg/dL (2.5-4.9); Potassium 3.3 mmol/L (3.5-5.1); Protein, Total 5.8 g/dL (6.4-8.2); Sodium Level 140 mmol/L (136-145)
[2019-09-27] MEDS: HYDROMORPHONE HCL 1 MG/ML INJ IV PRN ×3 (06:24→15:07)
[2019-09-27] MEDS ORDERED: HYDROMORPHONE HCL 1 MG/ML INJ ONE ×4 (06:25→18:03)
[2019-09-27] MEDS ORDERED: MAGNESIUM SULFATE 1 gm IVPB 1 GM/100 ML BAG IV ONE (06:50)
[2019-09-27] MEDS ORDERED: ENOXAPARIN 40 MG/0.4 ML SQ ONE (09:56)
[2019-09-27] MEDS ORDERED: KCL 20 MEQ/100 mL IVPB 40 MEQ/200 ML BAG IV ONE (09:57)
[2019-09-27] MEDS ORDERED: NA CHLORIDE 0.9% 1,000 ML ONE (09:57)
[2019-09-27] MEDS: KCL 20 MEQ/100 mL IVPB 20 MEQ/100 ML BAG IV SCH (10:05)
[2019-09-27] MEDS: ENOXAPARIN 40 MG/0.4 ML SQ SCH (10:06)
[2019-09-27 18:53] VITALS: BMI 20.2
[2019-09-27] MEDS: HYDROMORPHONE HCL 2 MG/ML inj IV PRN (21:54)
[2019-09-27] MEDS: ONDANSETRON 4 MG/2 ML VIAL IV PRN (21:55)
[2019-09-28] MEDS: HYDROMORPHONE HCL 2 MG/ML inj IV PRN ×6 (01:53→21:53)
[2019-09-28 02:18] LABS: Urine Appearance CLEAR; Urine Bilirubin NEGATIVE (NEG); Urine Blood NEGATIVE (NEG); Urine Color YELLOW; Urine Glucose NEGATIVE (NEG); Urine Protein NEGATIVE (NEG)
[2019-09-28 02:19] LABS: Urine Microscopic Reflex NO UMIC
[2019-09-28 05:52] LABS: Absolute Lymphocytes (CBC) 1.4 K/uL (0.7-4.9); Basophils % 0.5 % (0-1.3); Hematocrit 36.4 % (39.6-49.0); Lymphocytes % 33.3 % (15.3-44.8); MPV 8.5 fL (7.6-11.3); RBC Red Blood Cell Count 4.29 M/uL (4.33-5.43)
[2019-09-28] MEDS: ONDANSETRON 4 MG/2 ML VIAL IV PRN ×3 (05:55→20:42)
[2019-09-28 06:37] LABS: ALT/SGPT 31 U/L (12-78); AST/SGOT 32 U/L (15-37); Albumin 3.2 g/dL (3.4-5.0); Alkaline Phosphatase 99 U/L (45-117); BUN Blood Urea Nitrogen 12 mg/dL (7-18); Bicarbonate 31 mmol/L (21-32); Bilirubin Total 0.6 mg/dL (0.2-1.0); Glucose Level 97 mg/dL (74-106); Lipase 515 U/L (73-393); Potassium 3.9 mmol/L (3.5-5.1); Protein, Total 6.3 g/dL (6.4-8.2); Sodium Level 142 mmol/L (136-145)
[2019-09-28 07:17] LABS: Blood Morphology Comment NOT SEEN (NOT SEEN); Platelet Estimate ADEQ; White Blood Cell Scan OK
[2019-09-28] MEDS ORDERED: POTASSIUM CL SA 10 MEQ TAB PO ONE (08:00)
[2019-09-28] MEDS: ENOXAPARIN 40 MG/0.4 ML SQ SCH (08:48)
[2019-09-28] MEDS: FOLIC ACID IV SCH (15:25)
[2019-09-28] MEDS: MULTIVITAMINS IV SCH (15:25)
[2019-09-28] MEDS: D5 NS IV SCH (15:25)
[2019-09-28] MEDS: THIAMINE HCL IV SCH (15:25)
--- NOTE | 2019-09-28 18:45 | PN ---
Subjective: Patient is currently lying in bed. He looks comfortable overnight. He continued to hav e abdominal pain. He will need the . Continue to have significant nausea. He is still n. p.o. and he is okay with continuing to be n.p.o. for now. Review of Systems: Otherwise negative. Objective: Vital Signs: Currently, blood pressure is 101/60, respiratory rate 13, pulse 62, tempera ture 98.2. General: Patient is alert and oriented x3. Does not look in any distress. HEENT: Atraumatic, normocephalic. PERRLA. Oral mucosa is moist. Neck: Supple. No JVD. No carotid bruits. Chest: Clear to auscultation. Good air entry. Heart: Regular rate and rhythm. S1, S2 normal. No gallop or murmur. Abdomen: Soft with some tenderness in the left upper quadrant. There is no guarding. There is no r ebound. He does have active bowel sounds. Extremities: No clubbing, cyanosis, or edema. No calf tenderness. Neurologic: Grossly intact. Laboratory Data: Today, showed CBC within normal except for hemoglobin 12.5. Chemistry was normal e xcept for LFTs with a bilirubin of 0.6, lipase 515, slightly up from 404 yesterday, but down from [address] of the abdomen and pelvis done on admission showed mesenteric edema and free fl uid in the left upper quadrant, which appears surrounded the body tail of the pancreas. Findings sug gestive of acute pancreatitis with hepatosplenomegaly. Assessment And Plan: 1.Acute pancreatitis secondary to history of alcohol abuse. We will keep patient n.p.o. for 1 more day. He continued to have significant amount of pain. I will start him on D5 half-normal saline at 125 mL/hour. Continues to have significant for nausea and pain. 2.History of alcohol abuse. I will order banana bag once a day with multivitamin, folic, and thiami ne. 3.Hypokalemia, replaced. 4.Anemia secondary to dehydration. We will observe for now. 5.Thrombocytopenia, most likely secondary to hepatosplenomegaly secondary to liver cirrhosis. 6.Alcohol abuse. Advised patient to quit. BONIFACIO/GABRIELA Voice ID: [id number] Report ID: [id number]
[2019-09-28] MEDS: ALPRAZOLAM 0.25 MG TABLET PO PRN (20:42)
[2019-09-28] MEDS: NICOTINE 21 MG/PAT TD SCH (22:21)
[2019-09-28] MEDS: D5 0.45 NS 1,000 ML IV SCH (23:25)
[2019-09-29] MEDS: HYDROMORPHONE HCL 2 MG/ML inj IV PRN ×6 (01:54→22:06)
[2019-09-29] MEDS: ONDANSETRON 4 MG/2 ML VIAL IV PRN ×4 (01:56→22:06)
[2019-09-29] MEDS: D5 0.45 NS 1,000 ML IV SCH ×3 (04:00→17:58)
[2019-09-29 05:07] LABS: Absolute Lymphocytes (CBC) 1.2 K/uL (0.7-4.9); Basophils % 0.8 % (0-1.3); Hematocrit 35.8 % (39.6-49.0); Lymphocytes % 42.9 % (15.3-44.8); MPV 8.3 fL (7.6-11.3); RBC Red Blood Cell Count 4.18 M/uL (4.33-5.43)
[2019-09-29 05:22] LABS: ALT/SGPT 45 U/L (12-78); AST/SGOT 45 U/L (15-37); Albumin 3.2 g/dL (3.4-5.0); Alkaline Phosphatase 90 U/L (45-117); BUN Blood Urea Nitrogen 8 mg/dL (7-18); Bicarbonate 30 mmol/L (21-32); Bilirubin Total 0.5 mg/dL (0.2-1.0); Glucose Level 94 mg/dL (74-106); Lipase 268 U/L (73-393); Magnesium 1.9 mg/dL (1.8-2.4); Phosphorus 4.3 mg/dL (2.5-4.9); Potassium 4.1 mmol/L (3.5-5.1); Protein, Total 6.4 g/dL (6.4-8.2); Sodium Level 139 mmol/L (136-145)
--- NOTE | 2019-09-29 07:23 | P.PN ---
Subjective Date of Service: 09/29/19 Chief Complaint: Acute pancreatitis Symptoms are improving. Patient's pain is better controlled. He is still having pain but he tends to have chronic pain issues. Will go ahead and recheck his lipase this morning and if it is normalized then will start him on a clear liquid diet. Review of Systems 10-point ROS is otherwise unremarkable Physical Examination - Vital Signs Temperature: 97.6 F Blood Pressure: 105/68 Pulse: 55 Respirations: 20 Pulse Ox (%): 100 - Physical Exam General: Alert, In no apparent distress, Oriented x3 Respiratory: Clear to auscultation bilaterally, Normal air movement Cardiovascular: Regular rate/rhythm, Normal S1 S2, No murmurs Gastrointestinal: Normal bowel sounds, Soft and benign, Non-distended, Tenderness Musculoskeletal: No clubbing, No swelling, No tenderness - Studies Medications List Reviewed: Yes Assessment & Plan - Problems (Diagnosis) (1) Acute on chronic pancreatitis Current Visit: No Status: Acute (2) Alcoholic pancreatitis Current Visit: No Status: Acute (3) Fatty liver disease, nonalcoholic Current Visit: No Status: Acute (4) Lower GI bleeding Current Visit: No Status: Acute (5) Alcohol abuse Current Visit: No Status: Chronic - Plan Plan: 1. IV hydration 2. Continue with pain control 3. Start clear liquid diet 5. Monitor lipase and renal function 6. Monitor volume status 7. Counselled regarding alcohol cessation 8. GI and DVT prophylaxis Discharge Plan: Home Plan to discharge in: 24 Hours - Advance Directives Does patient have a Living Will: No Does patient have a Durable POA for Healthcare: No - Code Status/Comfort Care Code Status: Full Code Critical Care: No Time Spent Managing PTS Care (In Minutes): 30
[2019-09-29] MEDS: NICOTINE 21 MG/PAT TD SCH ×2 (08:54→20:01)
[2019-09-29] MEDS ORDERED: ENOXAPARIN 40 MG/0.4 ML SQ SCH ×2 (09:00→21:00)
[2019-09-29] MEDS: FOLIC ACID IV SCH (09:20)
[2019-09-29] MEDS: MULTIVITAMINS IV SCH (09:20)
[2019-09-29] MEDS: D5 NS IV SCH (09:20)
[2019-09-29] MEDS: THIAMINE HCL IV SCH (09:20)
--- NOTE | 2019-09-29 11:21 | RAD REPORT ---
EXAM DESCRIPTION: CT - Abdomen Pelvis W Contrast - 09/27/2019 5:37 am CLINICAL HISTORY: The patient is 33 years old and is Male; ABD PAIN TECHNIQUE: Axial computed tomography images of the abdomen and pelvis with intravenous contrast. S agittal and coronal reformatted images were created and reviewed. This CT exam was performed using one or more of the following dose reduction techniques: automated exposure control, adjustment of t he mA and/or kV according to patient size, and/or use of iterative reconstruction technique. COMPARISON: CT abdomen and pelvis July 30, 2019 FINDINGS: ARTIFACTS: The exam is suboptimal secondary to motion artifact. LUNG BASES: A 3 mm left lower lobe pulmonary nodule is present. No follow-up imaging is recommen ded. ABDOMEN: LIVER: The liver is enlarged and diffusely fatty. GALLBLADDER AND BILE DUCTS: No calcified stones. No ductal dilation. PANCREAS: No ductal dilation. No mass. SPLEEN: The spleen is enlarged. ADRENALS: Unremarkable. No mass. KIDNEYS AND URETERS: Right intrarenal calcifications are present. Punctate left intrarenal calci fications also noted. The kidneys enhance symmetrically. No obstructing renal or ureteral calculus is seen. There is no hydronephrosis or hydroureter of either kidney. STOMACH AND BOWEL: The stomach is minimally distended with food contents. The small bowel is candido ssly normal in caliber. Stool is present throughout colon. There is no mucosal thickening or evidence of bowel obstruction. PELVIS: APPENDIX: No findings to suggest acute appendicitis. BLADDER: The bladder is well distended. REPRODUCTIVE: Unremarkable as visualized. ABDOMEN and PELVIS: INTRAPERITONEAL SPACE: Mild mesenteric edema and free fluid is present within the left upper kaushik drant, likely surrounding the posterior body/tail the pancreas. No free air. BONES/JOINTS: No acute fracture. SOFT TISSUES: The soft tissues are normal. VASCULATURE: Multiple prominent collateral vessels are noted throughout the abdomen and pelvis, similar to prior exam. No abdominal aortic aneurysm. LYMPH NODES: Unremarkable. No enlarged lymph nodes. IMPRESSION: 1. Mesenteric edema and free fluid within the left upper quadrant which appears to kalyan round the body/tail the pancreas. Findings suggest acute pancreatitis. Correlation with patient's lab oratory values is recommended. 2. Hepatosplenomegaly. Electronically signed by: Rashmi Dukes MD 09/26/2019 10:28 PM CDT Due to temporary technical issues with the PACS/Fluency reporting system, reports are being signed by the in house radiologist as a courtesy to ensure prompt reporting. The interpreting radiologist is f ully responsible for the content of the report.
[2019-09-29] MEDS: ALPRAZOLAM 0.25 MG TABLET PO PRN (22:10)
[2019-09-30] MEDS: HYDROMORPHONE HCL 2 MG/ML inj IV PRN ×6 (02:03→21:55)
[2019-09-30] MEDS: D5 0.45 NS 1,000 ML IV SCH ×3 (02:05→20:00)
[2019-09-30 04:13] LABS: Absolute Lymphocytes (CBC) 1.4 K/uL (0.7-4.9); Basophils % 0.6 % (0-1.3); Lymphocytes % 36.6 % (15.3-44.8); MPV 8.4 fL (7.6-11.3); RBC Red Blood Cell Count 4.32 M/uL (4.33-5.43)
[2019-09-30 04:30] LABS: ALT/SGPT 66 U/L (12-78); AST/SGOT 57 U/L (15-37); Albumin 3.3 g/dL (3.4-5.0); Alkaline Phosphatase 101 U/L (45-117); BUN Blood Urea Nitrogen 7 mg/dL (7-18); Bicarbonate 32 mmol/L (21-32); Bilirubin Total 0.2 mg/dL (0.2-1.0); Glucose Level 103 mg/dL (74-106); Lipase 150 U/L (73-393); Potassium 3.5 mmol/L (3.5-5.1); Protein, Total 6.6 g/dL (6.4-8.2); Sodium Level 141 mmol/L (136-145)
[2019-09-30] MEDS: ONDANSETRON 4 MG/2 ML VIAL IV PRN ×3 (06:07→23:10)
[2019-09-30] MEDS ORDERED: POTASSIUM CL SA 10 MEQ TAB PO ONE (08:00)
--- NOTE | 2019-09-30 08:13 | P.PN ---
Subjective Date of Service: 09/30/19 Primary Care Provider: None Chief Complaint: Acute pancreatitis Subjective: Improving (Slowly improving. Tolerating clear liquid diet) Physical Examination - Vital Signs Temperature: 96.8 F Blood Pressure: 128/90 Pulse: 64 Respirations: 18 Pulse Ox (%): 98 - Physical Exam General: Alert, In no apparent distress, Oriented x3, Cooperative HEENT: Atraumatic Neck: Supple Respiratory: Clear to auscultation bilaterally, Normal air movement Cardiovascular: Normal pulses, Regular rate/rhythm Gastrointestinal: Normal bowel sounds, Soft and benign, Non-distended, Tenderness (Less pain to the epigastric region) Neurological: Normal speech, Normal strength at 5/5 x4 extr, Normal tone, Normal affect - Studies Medications List Reviewed: Yes Assessment & Plan Discharge Plan: Home Plan to discharge in: 24 Hours Physician Review Additional Text: Impression: Nausea and vomiting with epigastric pain secondary to Acute on chronic pancreatitis History of alcohol abuse Fatty liver Plan: Nausea and vomiting with epigastric pain secondary to Acute on chronic pancreatitis: Patient has slowly improved. Patient tolerating clear liquid diet. Will advance to full liquid for lunch. Encourage ambulation. Encourage incentive spirometer. Will slowly advance diet once toleration of current diet. Anticipate discharge likely in the next 24-48 hr. History of alcohol abuse: Patient denies any recent alcohol use. Encourage alcohol cessation. Fatty liver: CT scan reviewed. Overall stable. Time Spent Managing Pts Care (In Minutes): 55
[2019-09-30] MEDS: FOLIC ACID IV SCH (10:46)
[2019-09-30] MEDS: THIAMINE HCL IV SCH (10:46)
[2019-09-30] MEDS: D5 NS IV SCH (10:46)
[2019-09-30] MEDS: MULTIVITAMINS IV SCH (10:46)
[2019-09-30] MEDS: NICOTINE 21 MG/PAT TD SCH (19:55)
[2019-09-30] MEDS: ALPRAZOLAM 0.25 MG TABLET PO PRN (20:05)
[2019-10-01] MEDS: HYDROMORPHONE HCL 2 MG/ML inj IV PRN ×6 (01:49→21:27)
[2019-10-01] MEDS: D5 0.45 NS 1,000 ML IV SCH ×3 (01:54→18:39)
[2019-10-01 04:16] LABS: Absolute Lymphocytes (CBC) 1.2 K/uL (0.7-4.9); Basophils % 0.8 % (0-1.3); Lymphocytes % 33.9 % (15.3-44.8); MPV 8.5 fL (7.6-11.3)
[2019-10-01 04:37] LABS: ALT/SGPT 65 U/L (12-78); AST/SGOT 41 U/L (15-37); Albumin 3.3 g/dL (3.4-5.0); Alkaline Phosphatase 92 U/L (45-117); BUN Blood Urea Nitrogen 5 mg/dL (7-18); Bicarbonate 30 mmol/L (21-32); Bilirubin Total 0.2 mg/dL (0.2-1.0); Glucose Level 83 mg/dL (74-106); Potassium 3.7 mmol/L (3.5-5.1); Protein, Total 6.4 g/dL (6.4-8.2); Sodium Level 142 mmol/L (136-145)
[2019-10-01] MEDS ORDERED: POTASSIUM CL SA 10 MEQ TAB PO ONE (04:46)
[2019-10-01] MEDS: MULTIVITAMINS IV SCH (09:33)
[2019-10-01] MEDS: FOLIC ACID IV SCH (09:33)
[2019-10-01] MEDS: THIAMINE HCL IV SCH (09:33)
[2019-10-01] MEDS: D5 NS IV SCH (09:33)
--- NOTE | 2019-10-01 09:34 | RAD REPORT ---
EXAM DESCRIPTION: RAD - Abdomen 1 View (KUB) - 10/01/2019 9:12 am CLINICAL HISTORY: pancreatitis, evaluate for ileus Pain COMPARISON: Abdomen 1 View (KUB) dated 12/10/2018; Abdomen Pelvis W Contrast dated 09/26/2019 FINDINGS: The bowel gas pattern is non-obstructive. No evidence of free air or pneumatosis. No suspi cious calcifications. No significant bony findings. IMPRESSION: Negative examination.
--- NOTE | 2019-10-01 09:36 | P.PN ---
Subjective Date of Service: 10/01/19 Primary Care Provider: None Chief Complaint: Acute pancreatitis Subjective: Other (Still with nausea and vomiting.) Physical Examination - Vital Signs Temperature: 97.3 F Blood Pressure: 101/63 Pulse: 74 Respirations: 16 Pulse Ox (%): 100 - Physical Exam General: Alert, In no apparent distress, Oriented x3, Cooperative HEENT: Atraumatic Neck: Supple Respiratory: Clear to auscultation bilaterally, Normal air movement Cardiovascular: Normal pulses, Regular rate/rhythm Gastrointestinal: Hypoactive, Tenderness (Tenderness to the epigastric slightly improved) Neurological: Normal speech, Normal strength at 5/5 x4 extr, Normal tone, Normal affect - Studies Medications List Reviewed: Yes Assessment & Plan Discharge Plan: Home Plan to discharge in: 48 Hours Physician Review Additional Text: Impression: Nausea and vomiting with epigastric pain secondary to Acute on chronic pancreatitis History of alcohol abuse Fatty liver Plan: Nausea and vomiting with epigastric pain secondary to Acute on chronic pancreatitis: Continue to encourage ambulation. Encourage incentive spirometer. Continue with IV fluid hydration. Will obtain KUB to evaluate for ileus. Hopefully the patient will improve over the next 24-48 hr with plan to advanced diet as tolerated. History of alcohol abuse: Patient denies any recent alcohol use. Encourage alcohol cessation. Fatty liver: CT scan reviewed. Overall stable. Time Spent Managing Pts Care (In Minutes): 55
[2019-10-01] MEDS: ONDANSETRON 4 MG/2 ML VIAL IV PRN ×2 (13:26→22:23)
[2019-10-01] MEDS: NICOTINE 21 MG/PAT TD SCH (21:27)
[2019-10-01] MEDS: ALPRAZOLAM 0.25 MG TABLET PO PRN (22:23)
[2019-10-02] MEDS: HYDROMORPHONE HCL 2 MG/ML inj IV PRN ×2 (01:28→05:28)
[2019-10-02] MEDS: D5 0.45 NS 1,000 ML IV SCH (01:33)
[2019-10-02 04:27] LABS: Absolute Lymphocytes (CBC) 1.4 K/uL (0.7-4.9); Basophils % 0.6 % (0-1.3); Hematocrit 36.8 % (39.6-49.0); Lymphocytes % 33.5 % (15.3-44.8); RBC Red Blood Cell Count 4.29 M/uL (4.33-5.43)
[2019-10-02 04:43] LABS: ALT/SGPT 67 U/L (12-78); AST/SGOT 35 U/L (15-37); Albumin 3.3 g/dL (3.4-5.0); Alkaline Phosphatase 88 U/L (45-117); BUN Blood Urea Nitrogen 6 mg/dL (7-18); Bicarbonate 31 mmol/L (21-32); Bilirubin Total 0.2 mg/dL (0.2-1.0); Glucose Level 110 mg/dL (74-106); Lipase 78 U/L (73-393); Potassium 4.4 mmol/L (3.5-5.1); Protein, Total 6.6 g/dL (6.4-8.2); Sodium Level 142 mmol/L (136-145)
[2019-10-02] MEDS: ONDANSETRON 4 MG/2 ML VIAL IV PRN (05:29)
[2019-10-02 08:06] VITALS: O2SAT 97
[2019-10-02 08:39] VITALS: BP 131/62; TEMP 98.1
[2019-10-02] MEDS ORDERED: HYDROCODONE/APAP 7.5/325 MG TAB PO PRN (09:08)
[2019-10-02] MEDS ORDERED: TRAMADOL HCL 50 MG TAB PO PRN (09:08)
[2019-10-02] MEDS: THIAMINE HCL IV SCH (09:09)
[2019-10-02] MEDS: D5 NS IV SCH (09:09)
[2019-10-02] MEDS: MULTIVITAMINS IV SCH (09:09)
[2019-10-02] MEDS: FOLIC ACID IV SCH (09:09)
--- NOTE | 2019-10-02 11:33 | P.DS ---
Admission Date: 09/27/19 Discharge Date: 10/02/19 Primary Care Provider: None Disposition: AMA-LEFT AGAINST MEDICAL ADVIC Discharge Condition: GOOD Reason for Admission: Acute pancreatitis Consultations: none Procedures: CT Scan: FINDINGS: ARTIFACTS: The exam is suboptimal secondary to motion artifact. LUNG BASES: A 3 mm left lower lobe pulmonary nodule is present. No follow- up imaging is recommended. ABDOMEN: LIVER: The liver is enlarged and diffusely fatty. GALLBLADDER AND BILE DUCTS: No calcified stones. No ductal dilation. PANCREAS: No ductal dilation. No mass. SPLEEN: The spleen is enlarged. ADRENALS: Unremarkable. No mass. KIDNEYS AND URETERS: Right intrarenal calcifications are present. Punctate left intrarenal calcifications also noted. The kidneys enhance symmetrically. No obstructing renal or ureteral calculus is seen. There is no hydronephrosis or hydroureter of either kidney. STOMACH AND BOWEL: The stomach is minimally distended with food contents. The small bowel is grossly normal in caliber. Stool is present throughout colon. There is no mucosal thickening or evidence of bowel obstruction. PELVIS: APPENDIX: No findings to suggest acute appendicitis. BLADDER: The bladder is well distended. REPRODUCTIVE: Unremarkable as visualized. ABDOMEN and PELVIS: INTRAPERITONEAL SPACE: Mild mesenteric edema and free fluid is present within the left upper quadrant, likely surrounding the posterior body/tail the pancreas. No free air. BONES/JOINTS: No acute fracture. SOFT TISSUES: The soft tissues are normal. VASCULATURE: Multiple prominent collateral vessels are noted throughout the abdomen and pelvis, similar to prior exam. No abdominal aortic aneurysm. LYMPH NODES: Unremarkable. No enlarged lymph nodes. IMPRESSION: 1. Mesenteric edema and free fluid within the left upper quadrant which appears to surround the body/tail the pancreas. Findings suggest acute pancreatitis. Correlation with patient's laboratory values is recommended. 2. Hepatosplenomegaly. KUB: COMPARISON: Abdomen 1 View (KUB) dated 12/10/2018; Abdomen Pelvis W Contrast dated 09/26/2019 FINDINGS: The bowel gas pattern is non-obstructive. No evidence of free air or pneumatosis. No suspicious calcifications. No significant bony findings. IMPRESSION: Negative examination. Medical Problem List: Nausea and vomiting with epigastric pain secondary to Acute on chronic alcoholic pancreatitis Alcohol abuse Fatty liver Chronic pain related to chronic pancreatitis High risk for overdose on pain medication based on [place] state prescription monitoring program Brief History of Present Illness: 34-year-old male presented to emergency room with nausea, vomiting and abdominal pain. Patient with history of chronic alcoholic pancreatitis. Patient admitted alcohol recently. Patient was found to have elevated lipase with CT evidence of pancreatitis. Patient was admitted for further evaluation and treatment. Hospital Course: Patient presented with nausea, vomiting and epigastric abdominal pain. This was related to acute on chronic alcoholic pancreatitis. Patient admitted alcohol use and abuse recently. CT scan showed evidence of pancreatitis. Lipase was elevated. Patient was admitted given IV fluids and IV pain/antiemetic therapy. During the course of his stay his lipase improve. Electrolytes also improved. Follow-up KUB was done. He was unremarkable. During the course of his stay he required multiple doses of IV pain medication. Plan was to decrease IV pain medication and wean off. He patient became very irate and upset and only requested IV pain medication. He also was not eating but reported nausea. No significant evidence of nausea reported by the nurse. On examination patient did not have any abdominal pain although he reported abdominal pain. Up on further evaluations no evidence of nausea was reported by me. Due to the change in plan of care. Patient was upset. Patient decided to leave [facility]. AMA form signed. During the course of this interaction nurse and nurse practitioner was present. I did addressed prior to discharge. My concern of his chronic pain. Patient did not seem interested in this. Patient had reported that he had not been to the hospital in the ER or inpatient over the last 4 months. In review of records patient has been in the hospital or in the ER every month over the last year. Upon further review of [place] [employer] prescription monitoring program was reviewed in detail. His NARX score was 551. Overdose risk was 850 based on score is from the [place] state prescription monitoring program. Patient had recently obtained suboxone on September 09. Patient also had received Tylenol 3. Prior to him leaving [facility] added recommend that the patient see pain management to further address his chronic condition. Patient did not seem interested in this recommendation. I would highly recommend that the patient be screen for drug- seeking behavior if the patient is seen in the future in the emergency room or inpatient. I would highly recommend drug rehab if possible. Or evaluation by pain management. Patient left [facility]. Vital Signs/Physical Exam: Temp Pulse Resp BP Pulse Ox 98.1 F 73 18 131/62 100 10/02/19 08:00 10/02/19 08:00 10/02/19 08:00 10/02/19 08:00 10/02/19 08:00 General: Alert, In no apparent distress, Other (Increase anxiety.) Neck: Supple Respiratory: Clear to auscultation bilaterally, Normal air movement Cardiovascular: Normal pulses, Regular rate/rhythm Gastrointestinal: Normal bowel sounds, Soft and benign, Non-distended, No tenderness, No masses, No rebound, No guarding Integumentary: No erythema, No warmth, No cyanosis Neurological: Normal speech, Normal strength at 5/5 x4 extr, Normal tone, Abnormal affect (increased anxiety) Laboratory Data at Discharge: WBC 4.2 K/uL (4.3-10.9) L D 10/02/19 03:34 Hgb 12.6 g/dL (13.6-17.9) L 10/02/19 03:34 Hct 36.8 % (39.6-49.0) L 10/02/19 03:34 Plt Count 105 K/uL (152-406) L 10/02/19 03:34 PT 11.3 SECONDS (9.5-12.5) 09/26/19 20:40 INR 0.96 09/26/19 20:40 APTT 26.4 SECONDS (24.3-36.9) 09/26/19 20:40 Sodium 142 mmol/L (136-145) 10/02/19 03:34 Potassium 4.4 mmol/L (3.5-5.1) 10/02/19 03:34 BUN 6 mg/dL (7-18) L 10/02/19 03:34 Creatinine 0.74 mg/dL (0.55-1.3) 10/02/19 03:34 Glucose 110 mg/dL (74-106) H 10/02/19 03:34 Phosphorus 4.3 mg/dL (2.5-4.9) 09/29/19 04:41 Magnesium 1.9 mg/dL (1.8-2.4) 09/29/19 04:41 Total Bilirubin 0.2 mg/dL (0.2-1.0) 10/02/19 03:34 AST 35 U/L (15-37) 10/02/19 03:34 ALT 67 U/L (12-78) 10/02/19 03:34 Alkaline Phosphatase 88 U/L (45-117) 10/02/19 03:34 Triglycerides 75 mg/dL (<150) 09/27/19 04:25 Cholesterol 130 mg/dL (<200) 09/27/19 04:25 HDL Cholesterol 52 mg/dL (40-60) 09/27/19 04:25 Cholesterol/HDL Ratio 2.50 09/27/19 04:25 Lipase 78 U/L (73-393) 10/02/19 03:34 Home Medications: Pantoprazole Sodium [Protonix] 40 mg PO BID 09/27/19 Patient Discharge Instructions: Patient left against medical advice. Please see discharge summary for details and recommendations. Diet: Full liquid then advance to soft Activity: Ad jose carlos Time spent managing pt's care (in minutes): 55
== END 2019-10-02 09:30 | disposition left against medical advice (07) | DRG 440 ==
LOC: ER 18:53 → ERHOLD 09-27 00:04 → 3RD-ICU 09-27 18:00 → 4TH 09-29 17:37 → 3RD-ICU 09-29 17:39 → 4TH 09-29 18:05
PROVIDERS: ADMIT Hospitalist; ATTEND Hospitalist
DX: K85.20 Alcohol induced acute pancreatitis without necrosis or infection (principal); K86.0 Alcohol-induced chronic pancreatitis; F10.10 Alcohol abuse, uncomplicated; G89.29 Other chronic pain; K76.0 Fatty (change of) liver, not elsewhere classified; E87.6 Hypokalemia; D69.6 Thrombocytopenia, unspecified; Z53.29 Procedure and treatment not carried out because of patient's decision for other reasons
CPT/HCPCS: 36415; 74018; 74177; 80048; 80053; 80061; 80076; 80307; 81003; 83690; 83735; 84100; 84132; 85025; 85610; 85730; 96361; 96374; 96375; 99285; C9113; J1170; J1650; J2270; J2405; J3010; J3411; J3475; J7030; J7799; Q9967

== ENCOUNTER 2019-10-18 17:04 | Emergency (ER) | payer SELFPAY ==
--- OUTSIDE RECORDS SUMMARY | 2019-10-18 17:12 | XMS REPORT ---
:1985 [facility] Address [address] Rom[place] [address] [place] [id number] Care Team Providers Name Role Phone DMITRI [...] Reference Range Comments BARBITURATE URINE (BEAKER) (test gkqu=703) Negative Negative BENZODIAZEPINE SCREEN URINE (BEAKER) (test pmrb=306) Positive Negative COCAINE (METAB.) SCREEN (BEAKER) (test egcz=8931) Negative Negative METHADONE SCREEN (BEAKER) (test ftbb=5446) Negative Negative OPIATE SCREEN URINE (BEAKER) (test dgum=906) Negative Negative CANNABINOID SCREEN URINE (BEAKER) (test dgph=129) Positive Negative AMPH/METHAMPH SCREEN (BEAKER) (test eqfp=0918) Positive Negative PHENCYCLIDINE SCREEN URINE (BEAKER) (test qtmo=627) Negative Negative Per natural resources manager's recommendations, acceptable pH range for urine drug [...] situations. Chain of custody not maintained. Some yfne-egb-szapxbx medications, as well as adulterants, may cause inaccurate results. Clinicalcorrelation should be applied. A more comprehensive drug screen or confirmation of a detected drug may be performed upon request.[id number] 03:05:00 Test Item Value Reference Range Comments LIPASE (BEAKER) (test oobm=780) 257 U/L 8-78 BASIC METABOLIC [id number] 03:05:00 Test Item Value Reference Range Comments SODIUM (BEAKER) (test 136 meq/L 136-145 cfwh=198) POTASSIUM (BEAKER) (test 4.5 meq/L 3.5-5.1 Specimen slightly jmxk=527) hemolyzed CHLORIDE (BEAKER) (test 104 meq/L 98-107 mrfm=904) CO2 (BEAKER) (test 25 meq/L 22-29 auwk=516) BLOOD UREA NITROGEN 5 mg/dL 7-21 (BEAKER) (test smee=529) CREATININE (BEAKER) (test 0.57 mg/dL 0.57-1.25 Specimen slightly pepy=088) hemolyzed GLUCOSE RANDOM (BEAKER) 87 mg/dL 70-105 (test pbwb=326) CALCIUM (BEAKER) (test 8.4 mg/dL 8.4-10.2 ttsm=527) EGFR (BEAKER) (test 166 mL/min/1.73 sq m ESTIMATED GFR IS NOT nznd=8984) ACCURATE CREATININE CLEARANCE IN PREDICTING GLOMERULAR FILTRATION RATE. ESTIMATED GFR IS NOT APPLICABLE FOR DIALYSIS PATIENTS. BASIC METABOLIC [id number] 04:41:00 Test Item Value Reference Range Comments SODIUM (BEAKER) (test 134 meq/L 136-145 zany=090) POTASSIUM (BEAKER) (test 3.9 meq/L 3.5-5.1 Specimen slightly jtoz=524) hemolyzed CHLORIDE (BEAKER) (test 102 meq/L 98-107 gjnw=229) CO2 (BEAKER) (test 26 meq/L 22-29 hmxx=355) BLOOD UREA NITROGEN 3 mg/dL 7-21 (BEAKER) (test myjd=167) CREATININE (BEAKER) (test 0.50 mg/dL 0.57-1.25 Specimen slightly elbg=829) hemolyzed GLUCOSE RANDOM (BEAKER) 95 mg/dL 70-105 (test qcfn=179) CALCIUM (BEAKER) (test 7.9 mg/dL 8.4-10.2 ypwu=626) EGFR (BEAKER) (test 193 mL/min/1.73 sq m ESTIMATED GFR IS NOT geth=8671) ACCURATE CREATININE CLEARANCE IN PREDICTING GLOMERULAR FILTRATION RATE. ESTIMATED GFR IS NOT APPLICABLE FOR DIALYSIS PATIENTS. [id number] 04:31:00 Test Item Value Reference Range Comments LIPASE (BEAKER) (test uiog=622) 334 U/L 8-78 TROPONIN [id number] 03:00:00 Test Item Value Reference Range Comments TROPONIN I (BEAKER) (test gfxf=829) < ng/mL 0.00-0.03 Troponin I (TnI) levels [...] failure, acidosis, acute neurological disease, and persistent tachyarrhythmia.[id number] 02:54:00 Test Item Value Reference Range Comments MAGNESIUM (BEAKER) (test 1.9 mg/dL 1.6-2.6 Specimen slightly hemolyzed vjtf=993) BASIC METABOLIC [id number] 02:54:00 Test Item Value Reference Range Comments SODIUM (BEAKER) (test 136 meq/L 136-145 crmr=191) POTASSIUM (BEAKER) (test 3.8 meq/L 3.5-5.1 Specimen slightly cgrs=643) hemolyzed CHLORIDE (BEAKER) (test 100 meq/L 98-107 qhih=095) CO2 (BEAKER) (test 28 meq/L 22-29 npki=258) BLOOD UREA NITROGEN 3 mg/dL 7-21 (BEAKER) (test nlmg=532) CREATININE (BEAKER) (test 0.56 mg/dL 0.57-1.25 Specimen slightly ofki=746) hemolyzed GLUCOSE RANDOM (BEAKER) 111 mg/dL 70-105 (test qwwo=431) CALCIUM (BEAKER) (test 8.3 mg/dL 8.4-10.2 ggzr=787) EGFR (BEAKER) (test 169 mL/min/1.73 sq m ESTIMATED GFR IS NOT gjss=8525) ACCURATE CREATININE CLEARANCE IN PREDICTING GLOMERULAR FILTRATION RATE. ESTIMATED GFR IS NOT APPLICABLE FOR DIALYSIS PATIENTS. [id number] 02:54:00 Test Item Value Reference Range Comments LIPASE (BEAKER) (test ngpf=799) 755 U/L 8-78 CBC W/PLT COUNT & AUTO [id number] 02:33:00 Test Item Value Reference Range Comments WHITE BLOOD CELL COUNT (BEAKER) (test fnwl=072) 5.7 K/ L 3.5-10.5 RED BLOOD CELL COUNT (BEAKER) (test mtwt=307) 3.90 M/ L 4.63-6.08 HEMOGLOBIN (BEAKER) (test gaqt=748) 12.0 GM/DL 13.7-17.5 HEMATOCRIT (BEAKER) (test jham=526) 36.5 % 40.1-51.0 MEAN CORPUSCULAR VOLUME (BEAKER) (test lrkv=762) 93.6 fL 79.0-92.2 MEAN CORPUSCULAR HEMOGLOBIN (BEAKER) (test 30.8 pg 25.7-32.2 exct=026) MEAN CORPUSCULAR HEMOGLOBIN CONC (BEAKER) (test 32.9 GM/DL 32.3-36.5 mraa=100) RED CELL DISTRIBUTION WIDTH (BEAKER) (test 13.6 % 11.6-14.4 meoq=627) PLATELET COUNT (BEAKER) (test kgtb=764) 155 K/CU MM 150-450 MEAN PLATELET VOLUME (BEAKER) (test czvq=798) 9.4 fL 9.4-12.4 NUCLEATED RED BLOOD CELLS (BEAKER) (test 0 /100 WBC 0-0 kdkp=143) NEUTROPHILS RELATIVE PERCENT (BEAKER) (test 70 % ruor=504) LYMPHOCYTES RELATIVE PERCENT (BEAKER) (test 19 % eeze=931) MONOCYTES RELATIVE PERCENT (BEAKER) (test 8 % ghgj=560) EOSINOPHILS RELATIVE PERCENT (BEAKER) (test 2 % jlfc=412) BASOPHILS RELATIVE PERCENT (BEAKER) (test 1 % nujy=418) NEUTROPHILS ABSOLUTE COUNT (BEAKER) (test 4.03 K/ L 1.78-5.38 bfqq=848) LYMPHOCYTES ABSOLUTE COUNT (BEAKER) (test 1.07 K/ L 1.32-3.57 aery=150) MONOCYTES ABSOLUTE COUNT (BEAKER) (test 0.45 K/ L 0.30-0.82 jqzc=637) EOSINOPHILS ABSOLUTE COUNT (BEAKER) (test 0.12 K/ L 0.04-0.54 jrjm=017) BASOPHILS ABSOLUTE COUNT (BEAKER) (test 0.05 K/ L 0.01-0.08 cmdb=546) IMMATURE GRANULOCYTES-RELATIVE PERCENT (BEAKER) 0 % 0-1 (test lmqn=5944) RAD, CHEST, 1 VIEW, NON [id number] 02:26:00Reason for exam:->pleuritic chest painShould this be [...] focalpulmonary consolidation or pneumothorax. Signed: [facility] Verified Date/Time: 03/22/2019 02:26:18 [id number] 08:35:00 Test Item Value Reference Range Comments MAGNESIUM (BEAKER) (test 1.4 mg/dL 1.6-2.6 Specimen slightly hemolyzed ydnw=945) BASIC METABOLIC [id number] 08:35:00 Test Item Value Reference Range Comments SODIUM (BEAKER) (test 138 meq/L 136-145 asdh=156) POTASSIUM (BEAKER) (test 3.7 meq/L 3.5-5.1 Specimen slightly nzuv=024) hemolyzed CHLORIDE (BEAKER) (test 102 meq/L 98-107 srhd=602) CO2 (BEAKER) (test 23 meq/L 22-29 mrtw=045) BLOOD UREA NITROGEN 4 mg/dL 7-21 (BEAKER) (test ursl=505) CREATININE (BEAKER) (test 0.48 mg/dL 0.57-1.25 Specimen slightly rifm=173) hemolyzed GLUCOSE RANDOM (BEAKER) 53 mg/dL 70-105 (test evgc=006) CALCIUM (BEAKER) (test 8.1 mg/dL 8.4-10.2 kphm=029) EGFR (BEAKER) (test 202 mL/min/1.73 sq m ESTIMATED GFR IS NOT tvjw=3333) ACCURATE CREATININE CLEARANCE IN PREDICTING GLOMERULAR FILTRATION RATE. ESTIMATED GFR IS NOT APPLICABLE FOR DIALYSIS PATIENTS. HEPATIC FUNCTION [id number] 08:35:00 Test Item Value Reference Range Comments TOTAL PROTEIN (BEAKER) (test 6.2 gm/dL 6.0-8.3 Specimen slightly hemolyzed piyh=509) ALBUMIN (BEAKER) (test 2.7 g/dL 3.5-5.0 Specimen slightly hemolyzed cqle=5247) BILIRUBIN TOTAL (BEAKER) (test 0.5 mg/dL 0.2-1.2 Specimen slightly hemolyzed cjht=023) BILIRUBIN DIRECT (BEAKER) (test 0.3 mg/dL 0.1-0.5 Specimen slightly hemolyzed iltz=379) ALKALINE PHOSPHATASE (BEAKER) 151 U/L 40-150 (test eeqd=842) AST (SGOT) (BEAKER) (test 64 U/L 5-34 Specimen slightly hemolyzed yayq=130) ALT (SGPT) (BEAKER) (test 21 U/L 6-55 Specimen slightly hemolyzed xnae=324) [id number] 08:35:00 Test Item Value Reference Range Comments LIPASE (BEAKER) (test uiss=605) 242 U/L 8-78 CBC W/PLT COUNT & AUTO [id number] 06:25:00 Test Item Value Reference Range Comments WHITE BLOOD CELL COUNT (BEAKER) (test jjrb=643) 4.2 K/ L 3.5-10.5 RED BLOOD CELL COUNT (BEAKER) (test lziy=846) 4.14 M/ L 4.63-6.08 HEMOGLOBIN (BEAKER) (test jzya=926) 12.7 GM/DL 13.7-17.5 HEMATOCRIT (BEAKER) (test xozp=963) 39.8 % 40.1-51.0 MEAN CORPUSCULAR VOLUME (BEAKER) (test znuv=224) 96.1 fL 79.0-92.2 MEAN CORPUSCULAR HEMOGLOBIN (BEAKER) (test 30.7 pg 25.7-32.2 gndv=514) MEAN CORPUSCULAR HEMOGLOBIN CONC (BEAKER) (test 31.9 GM/DL 32.3-36.5 hwro=047) RED CELL DISTRIBUTION WIDTH (BEAKER) (test 13.5 % 11.6-14.4 zgpq=145) PLATELET COUNT (BEAKER) (test epyw=928) 186 K/CU MM 150-450 MEAN PLATELET VOLUME (BEAKER) (test pysg=077) 10.9 fL 9.4-12.4 NUCLEATED RED BLOOD CELLS (BEAKER) (test 0 /100 WBC 0-0 hzer=005) NEUTROPHILS RELATIVE PERCENT (BEAKER) (test 55 % jecd=710) LYMPHOCYTES RELATIVE PERCENT (BEAKER) (test 31 % wabx=327) MONOCYTES RELATIVE PERCENT (BEAKER) (test 8 % qneo=756) EOSINOPHILS RELATIVE PERCENT (BEAKER) (test 5 % tngc=777) BASOPHILS RELATIVE PERCENT (BEAKER) (test 1 % psem=385) NEUTROPHILS ABSOLUTE COUNT (BEAKER) (test 2.28 K/ L 1.78-5.38 omek=138) LYMPHOCYTES ABSOLUTE COUNT (BEAKER) (test 1.28 K/ L 1.32-3.57 okcr=611) MONOCYTES ABSOLUTE COUNT (BEAKER) (test 0.35 K/ L 0.30-0.82 fpap=681) EOSINOPHILS ABSOLUTE COUNT (BEAKER) (test 0.21 K/ L 0.04-0.54 vjos=653) BASOPHILS ABSOLUTE COUNT (BEAKER) (test 0.05 K/ L 0.01-0.08 smev=134) IMMATURE GRANULOCYTES-RELATIVE PERCENT (BEAKER) 0 % 0-1 (test tpqj=0371) [id number] 07:42:00 Test Item Value Reference Range Comments MAGNESIUM (BEAKER) (test vaos=399) 1.5 mg/dL 1.6-2.6 BASIC METABOLIC [id number] 07:42:00 Test Item Value Reference Range Comments SODIUM (BEAKER) (test 140 meq/L 136-145 zhnh=922) POTASSIUM (BEAKER) (test 3.3 meq/L 3.5-5.1 xpad=389) CHLORIDE (BEAKER) (test 106 meq/L 98-107 olca=438) CO2 (BEAKER) (test 27 meq/L 22-29 fjkf=587) BLOOD UREA NITROGEN 6 mg/dL 7-21 (BEAKER) (test wbyl=550) CREATININE (BEAKER) (test 0.53 mg/dL 0.57-1.25 yjeb=476) GLUCOSE RANDOM (BEAKER) 81 mg/dL 70-105 (test cgnp=358) CALCIUM (BEAKER) (test 8.2 mg/dL 8.4-10.2 loml=805) EGFR (BEAKER) (test 180 mL/min/1.73 sq m ESTIMATED GFR IS NOT rihf=5516) ACCURATE CREATININE CLEARANCE IN PREDICTING GLOMERULAR FILTRATION RATE. ESTIMATED GFR IS NOT APPLICABLE FOR DIALYSIS PATIENTS. LIPID [id number] 07:42:00 Test Item Value Reference Range Comments TRIGLYCERIDES (BEAKER) (test ujsh=955) 63 mg/dL CHOLESTEROL (BEAKER) (test vdto=000) 101 mg/dL HDL CHOLESTEROL (BEAKER) (test kipp=531) 20 mg/dL LDL CHOLESTEROL CALCULATED (BEAKER) (test 68 mg/dL zmyx=112) Triglyceride Reference Range: Low Risk <150 Borderline 150- 199 High Risk 200-499 Very High Risk >=500Cholesterol Reference Range: Low Risk <200 Borderline 200-239 High Risk > 240HDL Cholesterol Reference Range: Low Risk >=60 High Risk <40LDL Cholesterol Reference Range: Optimal <100 Near Optimal 100-129 Borderline 130-159 High 160-189 Very High >=190HEPATIC FUNCTION [id number] 07:42:00 Test Item Value Reference Range Comments TOTAL PROTEIN (BEAKER) (test znkz=802) 6.1 gm/dL 6.0-8.3 ALBUMIN (BEAKER) (test xbja=4425) 2.7 g/dL 3.5-5.0 BILIRUBIN TOTAL (BEAKER) (test pvno=307) 0.6 mg/dL 0.2-1.2 BILIRUBIN DIRECT (BEAKER) (test qjok=019) 0.4 mg/dL 0.1-0.5 ALKALINE PHOSPHATASE (BEAKER) (test kpto=025) 157 U/L 40-150 AST (SGOT) (BEAKER) (test crwa=680) 58 U/L 5-34 ALT (SGPT) (BEAKER) (test eicw=940) 21 U/L 6-55 CBC W/PLT COUNT & AUTO [id number] 05:47:00 Test Item Value Reference Range Comments WHITE BLOOD CELL COUNT (BEAKER) (test lilv=713) 4.3 K/ L 3.5-10.5 RED BLOOD CELL COUNT (BEAKER) (test clpp=562) 3.66 M/ L 4.63-6.08 HEMOGLOBIN (BEAKER) (test nerc=807) 11.4 GM/DL 13.7-17.5 HEMATOCRIT (BEAKER) (test axur=564) 35.8 % 40.1-51.0 MEAN CORPUSCULAR VOLUME (BEAKER) (test goxj=140) 97.8 fL 79.0-92.2 MEAN CORPUSCULAR HEMOGLOBIN (BEAKER) (test 31.1 pg 25.7-32.2 mrwj=942) MEAN CORPUSCULAR HEMOGLOBIN CONC (BEAKER) (test 31.8 GM/DL 32.3-36.5 sejz=051) RED CELL DISTRIBUTION WIDTH (BEAKER) (test 14.2 % 11.6-14.4 dcjx=370) PLATELET COUNT (BEAKER) (test hzgk=856) 170 K/CU MM 150-450 MEAN PLATELET VOLUME (BEAKER) (test ewnd=757) 9.9 fL 9.4-12.4 NUCLEATED RED BLOOD CELLS (BEAKER) (test 0 /100 WBC 0-0 ppzn=661) NEUTROPHILS RELATIVE PERCENT (BEAKER) (test 55 % eapw=372) LYMPHOCYTES RELATIVE PERCENT (BEAKER) (test 30 % kbch=573) MONOCYTES RELATIVE PERCENT (BEAKER) (test 10 % dxxg=883) EOSINOPHILS RELATIVE PERCENT (BEAKER) (test 4 % zgnw=404) BASOPHILS RELATIVE PERCENT (BEAKER) (test 1 % vmhb=554) NEUTROPHILS ABSOLUTE COUNT (BEAKER) (test 2.36 K/ L 1.78-5.38 ltla=125) LYMPHOCYTES ABSOLUTE COUNT (BEAKER) (test 1.30 K/ L 1.32-3.57 iuma=782) MONOCYTES ABSOLUTE COUNT (BEAKER) (test 0.41 K/ L 0.30-0.82 qujw=429) EOSINOPHILS ABSOLUTE COUNT (BEAKER) (test 0.18 K/ L 0.04-0.54 flcg=677) BASOPHILS ABSOLUTE COUNT (BEAKER) (test 0.03 K/ L 0.01-0.08 xaux=478) IMMATURE GRANULOCYTES-RELATIVE PERCENT (BEAKER) 1 % 0-1 (test wmta=3841) BASIC METABOLIC [id number] 23:23:00 Test Item Value Reference Range Comments SODIUM (BEAKER) (test 139 meq/L 136-145 emzb=889) POTASSIUM (BEAKER) (test 3.1 meq/L 3.5-5.1 ljlg=332) CHLORIDE (BEAKER) (test 103 meq/L 98-107 zgyd=873) CO2 (BEAKER) (test 28 meq/L 22-29 bmdz=193) BLOOD UREA NITROGEN 8 mg/dL 7-21 (BEAKER) (test xfwl=055) CREATININE (BEAKER) (test 0.60 mg/dL 0.57-1.25 fhug=609) GLUCOSE RANDOM (BEAKER) 92 mg/dL 70-105 (test midp=511) CALCIUM (BEAKER) (test 8.6 mg/dL 8.4-10.2 cpms=024) EGFR (BEAKER) (test 156 mL/min/1.73 sq m ESTIMATED GFR IS NOT gqut=6355) ACCURATE CREATININE CLEARANCE IN PREDICTING GLOMERULAR FILTRATION RATE. ESTIMATED GFR IS NOT APPLICABLE FOR DIALYSIS PATIENTS. HEPATIC FUNCTION [id number] 23:23:00 Test Item Value Reference Range Comments TOTAL PROTEIN (BEAKER) (test nedj=754) 7.1 gm/dL 6.0-8.3 ALBUMIN (BEAKER) (test hlsk=9529) 3.2 g/dL 3.5-5.0 BILIRUBIN TOTAL (BEAKER) (test znec=527) 0.5 mg/dL 0.2-1.2 BILIRUBIN DIRECT (BEAKER) (test ogwn=551) 0.4 mg/dL 0.1-0.5 ALKALINE PHOSPHATASE (BEAKER) (test vsqo=854) 187 U/L 40-150 AST (SGOT) (BEAKER) (test rles=608) 62 U/L 5-34 ALT (SGPT) (BEAKER) (test apjx=483) 24 U/L 6-55 [id number] 22:57:00 Test Item Value Reference Range Comments LIPASE (BEAKER) (test uexx=744) 957 U/L 8-78 [id number] 22:57:00 Test Item Value Reference Range Comments AMYLASE (BEAKER) (test qemc=777) 391 U/L 25-125 [id number] 22:56:00 Test Item Value Reference Range Comments PROTIME (BEAKER) (test zpwd=941) 15.8 seconds 11.9-14.2 INR (BEAKER) (test tjwd=867) 1.3 <=5.9 PARTIAL THROMBOPLASTIN TIME (BEAKER) (test 30.9 seconds 22.5-36.0 mqiw=638) Effective 12/11/2018: PT Reference Range ChangeNew: 11.9-14.2 Previous: 11.7- 14.7RECOMMENDED COUMADIN/WARFARIN INR THERAPY RANGESSTANDARD DOSE: 2.0-3.0 Includes: PROPHYLAXIS for venous thrombosis, systemic embolization; TREATMENT for venous thrombosis and/or pulmonary embolus.HIGH RISK: Target INR is2.5-3.5 for patients wiht mechanical heart valves.CBC W/PLT COUNT & AUTO [id number] 22:41:00 Test Item Value Reference Range Comments WHITE BLOOD CELL COUNT (BEAKER) (test xhvv=516) 6.4 K/ L 3.5-10.5 RED BLOOD CELL COUNT (BEAKER) (test diia=608) 3.99 M/ L 4.63-6.08 HEMOGLOBIN (BEAKER) (test ilhs=066) 12.6 GM/DL 13.7-17.5 HEMATOCRIT (BEAKER) (test bagq=715) 39.0 % 40.1-51.0 MEAN CORPUSCULAR VOLUME (BEAKER) (test nbkk=034) 97.7 fL 79.0-92.2 MEAN CORPUSCULAR HEMOGLOBIN (BEAKER) (test 31.6 pg 25.7-32.2 rxdh=817) MEAN CORPUSCULAR HEMOGLOBIN CONC (BEAKER) (test 32.3 GM/DL 32.3-36.5 ijrw=629) RED CELL DISTRIBUTION WIDTH (BEAKER) (test 14.1 % 11.6-14.4 misb=371) PLATELET COUNT (BEAKER) (test onox=359) 187 K/CU MM 150-450 MEAN PLATELET VOLUME (BEAKER) (test wgwi=038) 9.3 fL 9.4-12.4 NUCLEATED RED BLOOD CELLS (BEAKER) (test 0 /100 WBC 0-0 grfe=383) NEUTROPHILS RELATIVE PERCENT (BEAKER) (test 68 % zejw=157) LYMPHOCYTES RELATIVE PERCENT (BEAKER) (test 19 % sxba=728) MONOCYTES RELATIVE PERCENT (BEAKER) (test 10 % yjzw=103) EOSINOPHILS RELATIVE PERCENT (BEAKER) (test 2 % sgst=120) BASOPHILS RELATIVE PERCENT (BEAKER) (test 1 % ukew=433) NEUTROPHILS ABSOLUTE COUNT (BEAKER) (test 4.31 K/ L 1.78-5.38 wjzp=312) LYMPHOCYTES ABSOLUTE COUNT (BEAKER) (test 1.21 K/ L 1.32-3.57 iiqx=039) MONOCYTES ABSOLUTE COUNT (BEAKER) (test 0.65 K/ L 0.30-0.82 vvgi=628) EOSINOPHILS ABSOLUTE COUNT (BEAKER) (test 0.14 K/ L 0.04-0.54 ylsn=047) BASOPHILS ABSOLUTE COUNT (BEAKER) (test 0.04 K/ L 0.01-0.08 sjrx=416) IMMATURE GRANULOCYTES-RELATIVE PERCENT (BEAKER) 0 % 0-1 (test ybok=9168) COMPREHENSIVE METABOLIC [id number] 06:44:00 Test Item Value Reference Range Comments TOTAL PROTEIN (BEAKER) 6.2 gm/dL 6.0-8.3 (test anea=430) ALBUMIN (BEAKER) (test 2.7 g/dL 3.5-5.0 kbwf=9912) ALKALINE PHOSPHATASE 195 U/L 40-150 (BEAKER) (test zvqr=348) BILIRUBIN TOTAL (BEAKER) 0.7 mg/dL 0.2-1.2 (test rmjo=315) SODIUM (BEAKER) (test 138 meq/L 136-145 vclr=276) POTASSIUM (BEAKER) (test 3.6 meq/L 3.5-5.1 pnix=729) CHLORIDE (BEAKER) (test 102 meq/L 98-107 dbkq=542) CO2 (BEAKER) (test 28 meq/L 22-29 abuk=749) BLOOD UREA NITROGEN 2 mg/dL 7-21 (BEAKER) (test pbwe=803) CREATININE (BEAKER) (test 0.52 mg/dL 0.57-1.25 novi=857) GLUCOSE RANDOM (BEAKER) 103 mg/dL 70-105 (test sjkf=162) CALCIUM (BEAKER) (test 8.5 mg/dL 8.4-10.2 ribt=615) AST (SGOT) (BEAKER) (test 67 U/L 5-34 zvwo=317) ALT (SGPT) (BEAKER) (test 31 U/L 6-55 rnst=353) EGFR (BEAKER) (test 184 mL/min/1.73 sq ESTIMATED GFR IS NOT yawr=8901) m ACCURATE CREATININE CLEARANCE IN PREDICTING GLOMERULAR FILTRATION RATE. ESTIMATED GFR IS NOT APPLICABLE FOR DIALYSIS PATIENTS. CBC W/PLT COUNT & AUTO [id number] 06:09:00 Test Item Value Reference Range Comments WHITE BLOOD CELL COUNT (BEAKER) (test kmdx=181) 4.0 K/ L 3.5-10.5 RED BLOOD CELL COUNT (BEAKER) (test sejy=543) 3.23 M/ L 4.63-6.08 HEMOGLOBIN (BEAKER) (test uscu=029) 10.6 GM/DL 13.7-17.5 HEMATOCRIT (BEAKER) (test iutu=702) 33.2 % 40.1-51.0 MEAN CORPUSCULAR VOLUME (BEAKER) (test kesb=988) 102.8 fL 79.0-92.2 MEAN CORPUSCULAR HEMOGLOBIN (BEAKER) (test 32.8 pg 25.7-32.2 sjhz=928) MEAN CORPUSCULAR HEMOGLOBIN CONC (BEAKER) (test 31.9 GM/DL 32.3-36.5 yfjb=317) RED CELL DISTRIBUTION WIDTH (BEAKER) (test 15.5 % 11.6-14.4 puqv=442) PLATELET COUNT (BEAKER) (test tfcm=129) 226 K/CU MM 150-450 MEAN PLATELET VOLUME (BEAKER) (test ftee=357) 10.4 fL 9.4-12.4 NUCLEATED RED BLOOD CELLS (BEAKER) (test 0 /100 WBC 0-0 tpht=075) NEUTROPHILS RELATIVE PERCENT (BEAKER) (test 54 % bimj=731) LYMPHOCYTES RELATIVE PERCENT (BEAKER) (test 29 % yzyv=218) MONOCYTES RELATIVE PERCENT (BEAKER) (test 9 % cgwg=771) EOSINOPHILS RELATIVE PERCENT (BEAKER) (test 6 % ukzv=877) BASOPHILS RELATIVE PERCENT (BEAKER) (test 1 % ubvy=947) NEUTROPHILS ABSOLUTE COUNT (BEAKER) (test 2.17 K/ L 1.78-5.38 hsiv=421) LYMPHOCYTES ABSOLUTE COUNT (BEAKER) (test 1.18 K/ L 1.32-3.57 dosv=412) MONOCYTES ABSOLUTE COUNT (BEAKER) (test 0.37 K/ L 0.30-0.82 wcxu=999) EOSINOPHILS ABSOLUTE COUNT (BEAKER) (test 0.25 K/ L 0.04-0.54 htex=278) BASOPHILS ABSOLUTE COUNT (BEAKER) (test 0.04 K/ L 0.01-0.08 xrlx=873) IMMATURE GRANULOCYTES-RELATIVE PERCENT (BEAKER) 0 % 0-1 (test bgda=6404) COMPREHENSIVE METABOLIC [id number] 07:17:00 Test Item Value Reference Range Comments TOTAL PROTEIN (BEAKER) 7.3 gm/dL 6.0-8.3 (test owul=455) ALBUMIN (BEAKER) (test 3.2 g/dL 3.5-5.0 uulx=5428) ALKALINE PHOSPHATASE 235 U/L 40-150 (BEAKER) (test axkv=334) BILIRUBIN TOTAL (BEAKER) 0.9 mg/dL 0.2-1.2 (test cbgg=351) SODIUM (BEAKER) (test 135 meq/L 136-145 tqjs=523) POTASSIUM (BEAKER) (test 3.6 meq/L 3.5-5.1 wkez=107) CHLORIDE (BEAKER) (test 101 meq/L 98-107 baxe=974) CO2 (BEAKER) (test 29 meq/L 22-29 xeml=737) BLOOD UREA NITROGEN < mg/dL 7-21 (BEAKER) (test vsjd=667) CREATININE (BEAKER) (test 0.56 mg/dL 0.57-1.25 axks=755) GLUCOSE RANDOM (BEAKER) 87 mg/dL 70-105 (test bsyr=303) CALCIUM (BEAKER) (test 8.6 mg/dL 8.4-10.2 xpaf=459) AST (SGOT) (BEAKER) (test 96 U/L 5-34 grrb=268) ALT (SGPT) (BEAKER) (test 40 U/L 6-55 vxni=395) EGFR (BEAKER) (test 169 mL/min/1.73 sq ESTIMATED GFR IS NOT sbvi=1386) m ACCURATE CREATININE CLEARANCE IN PREDICTING GLOMERULAR FILTRATION RATE. ESTIMATED GFR IS NOT APPLICABLE FOR DIALYSIS PATIENTS. CBC W/PLT COUNT & AUTO [id number] 06:05:00 Test Item Value Reference Range Comments WHITE BLOOD CELL COUNT (BEAKER) (test airm=194) 5.1 K/ L 3.5-10.5 RED BLOOD CELL COUNT (BEAKER) (test ltwv=492) 3.60 M/ L 4.63-6.08 HEMOGLOBIN (BEAKER) (test qyeq=278) 11.7 GM/DL 13.7-17.5 HEMATOCRIT (BEAKER) (test qofz=566) 37.6 % 40.1-51.0 MEAN CORPUSCULAR VOLUME (BEAKER) (test epbf=397) 104.4 fL 79.0-92.2 MEAN CORPUSCULAR HEMOGLOBIN (BEAKER) (test 32.5 pg 25.7-32.2 ujcp=311) MEAN CORPUSCULAR HEMOGLOBIN CONC (BEAKER) (test 31.1 GM/DL 32.3-36.5 snpd=455) RED CELL DISTRIBUTION WIDTH (BEAKER) (test 15.5 % 11.6-14.4 rctd=954) PLATELET COUNT (BEAKER) (test nfse=034) 250 K/CU MM 150-450 MEAN PLATELET VOLUME (BEAKER) (test xvxg=483) 10.1 fL 9.4-12.4 NUCLEATED RED BLOOD CELLS (BEAKER) (test 0 /100 WBC 0-0 vobu=361) NEUTROPHILS RELATIVE PERCENT (BEAKER) (test 61 % lcdf=622) LYMPHOCYTES RELATIVE PERCENT (BEAKER) (test 25 % qbgk=878) MONOCYTES RELATIVE PERCENT (BEAKER) (test 8 % mmes=528) EOSINOPHILS RELATIVE PERCENT (BEAKER) (test 5 % ospu=812) BASOPHILS RELATIVE PERCENT (BEAKER) (test 1 % cbdh=684) NEUTROPHILS ABSOLUTE COUNT (BEAKER) (test 3.09 K/ L 1.78-5.38 gwif=788) LYMPHOCYTES ABSOLUTE COUNT (BEAKER) (test 1.28 K/ L 1.32-3.57 wczx=469) MONOCYTES ABSOLUTE COUNT (BEAKER) (test 0.39 K/ L 0.30-0.82 ladd=104) EOSINOPHILS ABSOLUTE COUNT (BEAKER) (test 0.25 K/ L 0.04-0.54 qvlo=649) BASOPHILS ABSOLUTE COUNT (BEAKER) (test 0.05 K/ L 0.01-0.08 odot=567) IMMATURE GRANULOCYTES-RELATIVE PERCENT (BEAKER) 0 % 0-1 (test ampp=3589) [id number] 07:51:00 Test Item Value Reference Range Comments MAGNESIUM (BEAKER) (test hwbb=318) 1.7 mg/dL 1.6-2.6 COMPREHENSIVE METABOLIC [id number] 06:19:00 Test Item Value Reference Range Comments TOTAL PROTEIN (BEAKER) 6.1 gm/dL 6.0-8.3 (test xzqj=360) ALBUMIN (BEAKER) (test 2.7 g/dL 3.5-5.0 qtdw=2453) ALKALINE PHOSPHATASE 214 U/L 40-150 (BEAKER) (test zkpd=778) BILIRUBIN TOTAL (BEAKER) 0.9 mg/dL 0.2-1.2 (test wtxu=193) SODIUM (BEAKER) (test 139 meq/L 136-145 siyd=870) POTASSIUM (BEAKER) (test 4.2 meq/L 3.5-5.1 opuy=786) CHLORIDE (BEAKER) (test 110 meq/L 98-107 xueq=768) CO2 (BEAKER) (test 24 meq/L 22-29 vlza=524) BLOOD UREA NITROGEN < mg/dL 7-21 (BEAKER) (test seap=823) CREATININE (BEAKER) (test 0.50 mg/dL 0.57-1.25 mvcr=475) GLUCOSE RANDOM (BEAKER) 77 mg/dL 70-105 (test ynny=384) CALCIUM (BEAKER) (test 7.7 mg/dL 8.4-10.2 kkon=920) AST (SGOT) (BEAKER) (test 96 U/L 5-34 mcow=733) ALT (SGPT) (BEAKER) (test 37 U/L 6-55 zhip=236) EGFR (BEAKER) (test 193 mL/min/1.73 sq ESTIMATED GFR IS NOT ryme=2059) m ACCURATE CREATININE CLEARANCE IN PREDICTING GLOMERULAR FILTRATION RATE. ESTIMATED GFR IS NOT APPLICABLE FOR DIALYSIS PATIENTS. CBC W/PLT COUNT & AUTO [id number] 05:15:00 Test Item Value Reference Range Comments WHITE BLOOD CELL COUNT (BEAKER) (test xgdp=721) 4.8 K/ L 3.5-10.5 RED BLOOD CELL COUNT (BEAKER) (test vqwe=072) 3.25 M/ L 4.63-6.08 HEMOGLOBIN (BEAKER) (test acnt=896) 10.7 GM/DL 13.7-17.5 HEMATOCRIT (BEAKER) (test deyg=556) 34.0 % 40.1-51.0 MEAN CORPUSCULAR VOLUME (BEAKER) (test rngr=692) 104.6 fL 79.0-92.2 MEAN CORPUSCULAR HEMOGLOBIN (BEAKER) (test 32.9 pg 25.7-32.2 jjqn=133) MEAN CORPUSCULAR HEMOGLOBIN CONC (BEAKER) (test 31.5 GM/DL 32.3-36.5 gqrd=483) RED CELL DISTRIBUTION WIDTH (BEAKER) (test 15.5 % 11.6-14.4 oylx=788) PLATELET COUNT (BEAKER) (test cfcs=455) 219 K/CU MM 150-450 MEAN PLATELET VOLUME (BEAKER) (test jyeo=111) 10.2 fL 9.4-12.4 NUCLEATED RED BLOOD CELLS (BEAKER) (test 0 /100 WBC 0-0 miao=258) NEUTROPHILS RELATIVE PERCENT (BEAKER) (test 56 % nkux=543) LYMPHOCYTES RELATIVE PERCENT (BEAKER) (test 29 % aemv=875) MONOCYTES RELATIVE PERCENT (BEAKER) (test 8 % giaf=362) EOSINOPHILS RELATIVE PERCENT (BEAKER) (test 5 % izoi=276) BASOPHILS RELATIVE PERCENT (BEAKER) (test 1 % ahnl=595) NEUTROPHILS ABSOLUTE COUNT (BEAKER) (test 2.69 K/ L 1.78-5.38 wjab=637) LYMPHOCYTES ABSOLUTE COUNT (BEAKER) (test 1.40 K/ L 1.32-3.57 ubod=018) MONOCYTES ABSOLUTE COUNT (BEAKER) (test 0.37 K/ L 0.30-0.82 vnzn=157) EOSINOPHILS ABSOLUTE COUNT (BEAKER) (test 0.25 K/ L 0.04-0.54 yilz=084) BASOPHILS ABSOLUTE COUNT (BEAKER) (test 0.05 K/ L 0.01-0.08 onlm=375) IMMATURE GRANULOCYTES-RELATIVE PERCENT (BEAKER) 0 % 0-1 (test jyxy=5897) COMPREHENSIVE METABOLIC [id number] 09:35:00 Test Item Value Reference Range Comments TOTAL PROTEIN (BEAKER) 6.4 gm/dL 6.0-8.3 Specimen slightly (test kzsh=066) hemolyzed ALBUMIN (BEAKER) (test 2.8 g/dL 3.5-5.0 Specimen slightly pway=8541) hemolyzed ALKALINE PHOSPHATASE 214 U/L 40-150 (BEAKER) (test jpfk=809) BILIRUBIN TOTAL (BEAKER) 1.0 mg/dL 0.2-1.2 Specimen slightly (test skuc=934) hemolyzed SODIUM (BEAKER) (test 136 meq/L 136-145 meim=830) POTASSIUM (BEAKER) (test 4.2 meq/L 3.5-5.1 Specimen slightly vjfa=596) hemolyzed CHLORIDE (BEAKER) (test 107 meq/L 98-107 dpxt=591) CO2 (BEAKER) (test 23 meq/L 22-29 ncpc=769) BLOOD UREA NITROGEN 2 mg/dL 7-21 (BEAKER) (test ymod=394) CREATININE (BEAKER) (test 0.54 mg/dL 0.57-1.25 Specimen slightly pcps=053) hemolyzed GLUCOSE RANDOM (BEAKER) 89 mg/dL 70-105 (test mkph=233) CALCIUM (BEAKER) (test 7.6 mg/dL 8.4-10.2 ktqa=559) AST (SGOT) (BEAKER) (test 101 U/L 5-34 Specimen slightly dhbb=661) hemolyzed ALT (SGPT) (BEAKER) (test 41 U/L 6-55 Specimen slightly ipwi=964) hemolyzed EGFR (BEAKER) (test 176 mL/min/1.73 sq ESTIMATED GFR IS NOT trku=3168) m ACCURATE CREATININE CLEARANCE IN PREDICTING GLOMERULAR FILTRATION RATE. ESTIMATED GFR IS NOT APPLICABLE FOR DIALYSIS PATIENTS. [id number] 09:27:00 Test Item Value Reference Range Comments MAGNESIUM (BEAKER) (test 1.3 mg/dL 1.6-2.6 Specimen slightly hemolyzed erah=406) CBC W/PLT COUNT & AUTO [id number] 09:04:00 Test Item Value Reference Range Comments WHITE BLOOD CELL COUNT (BEAKER) (test adth=099) 5.7 K/ L 3.5-10.5 RED BLOOD CELL COUNT (BEAKER) (test zrts=880) 3.18 M/ L 4.63-6.08 HEMOGLOBIN (BEAKER) (test reyq=810) 10.4 GM/DL 13.7-17.5 HEMATOCRIT (BEAKER) (test gnms=729) 33.1 % 40.1-51.0 MEAN CORPUSCULAR VOLUME (BEAKER) (test vmon=275) 104.1 fL 79.0-92.2 MEAN CORPUSCULAR HEMOGLOBIN (BEAKER) (test 32.7 pg 25.7-32.2 dzzp=229) MEAN CORPUSCULAR HEMOGLOBIN CONC (BEAKER) (test 31.4 GM/DL 32.3-36.5 rrcn=639) RED CELL DISTRIBUTION WIDTH (BEAKER) (test 15.9 % 11.6-14.4 tpxs=411) PLATELET COUNT (BEAKER) (test xlib=559) 223 K/CU MM 150-450 MEAN PLATELET VOLUME (BEAKER) (test vczf=429) 10.4 fL 9.4-12.4 NUCLEATED RED BLOOD CELLS (BEAKER) (test 0 /100 WBC 0-0 adpc=093) NEUTROPHILS RELATIVE PERCENT (BEAKER) (test 58 % sfsa=767) LYMPHOCYTES RELATIVE PERCENT (BEAKER) (test 25 % ssbz=798) MONOCYTES RELATIVE PERCENT (BEAKER) (test 11 % kucf=878) EOSINOPHILS RELATIVE PERCENT (BEAKER) (test 5 % xnge=676) BASOPHILS RELATIVE PERCENT (BEAKER) (test 1 % ugvd=826) NEUTROPHILS ABSOLUTE COUNT (BEAKER) (test 3.27 K/ L 1.78-5.38 bpid=198) LYMPHOCYTES ABSOLUTE COUNT (BEAKER) (test 1.40 K/ L 1.32-3.57 lceq=419) MONOCYTES ABSOLUTE COUNT (BEAKER) (test 0.61 K/ L 0.30-0.82 riko=852) EOSINOPHILS ABSOLUTE COUNT (BEAKER) (test 0.30 K/ L 0.04-0.54 ilay=358) BASOPHILS ABSOLUTE COUNT (BEAKER) (test 0.07 K/ L 0.01-0.08 ffby=422) IMMATURE GRANULOCYTES-RELATIVE PERCENT (BEAKER) 0 % 0-1 (test cskf=5108) COMPREHENSIVE METABOLIC [id number] 05:26:00 Test Item Value Reference Range Comments TOTAL PROTEIN (BEAKER) 5.7 gm/dL 6.0-8.3 (test icod=437) ALBUMIN (BEAKER) (test 2.6 g/dL 3.5-5.0 zqhh=6428) ALKALINE PHOSPHATASE 204 U/L 40-150 (BEAKER) (test dtto=311) BILIRUBIN TOTAL (BEAKER) 1.0 mg/dL 0.2-1.2 (test nung=997) SODIUM (BEAKER) (test 138 meq/L 136-145 pazb=095) POTASSIUM (BEAKER) (test 3.3 meq/L 3.5-5.1 fewn=612) CHLORIDE (BEAKER) (test 106 meq/L 98-107 pjct=578) CO2 (BEAKER) (test 24 meq/L 22-29 iolk=918) BLOOD UREA NITROGEN 5 mg/dL 7-21 (BEAKER) (test ihkv=233) CREATININE (BEAKER) (test 0.53 mg/dL 0.57-1.25 mlbs=143) GLUCOSE RANDOM (BEAKER) 85 mg/dL 70-105 (test dkah=840) CALCIUM (BEAKER) (test 7.3 mg/dL 8.4-10.2 trlq=375) AST (SGOT) (BEAKER) (test 108 U/L 5-34 tyni=983) ALT (SGPT) (BEAKER) (test 46 U/L 6-55 cljk=196) EGFR (BEAKER) (test 180 mL/min/1.73 sq ESTIMATED GFR IS NOT oszr=3745) m ACCURATE CREATININE CLEARANCE IN PREDICTING GLOMERULAR FILTRATION RATE. ESTIMATED GFR IS NOT APPLICABLE FOR DIALYSIS PATIENTS. PROTHROMBIN TIME/[id number] 05:08:00 Test Item Value Reference Range Comments PROTIME (BEAKER) (test wxze=688) 17.0 seconds 11.9-14.2 INR (BEAKER) (test gjai=588) 1.5 <=5.9 Effective 12/11/2018: PT Reference Range ChangeNew: 11.9-14.2 Previous: 11.7- 14.7RECOMMENDED COUMADIN/WARFARIN INR THERAPY RANGESSTANDARD DOSE: 2.0-3.0 Includes: PROPHYLAXIS for venous thrombosis, systemic embolization; TREATMENT for venous thrombosis and/or pulmonary embolus.HIGH RISK: Target INR is2.5-3.5 for patients wiht mechanical heart valves.CBC W/PLT COUNT & AUTO [id number] 04:59:00 Test Item Value Reference Range Comments WHITE BLOOD CELL COUNT (BEAKER) (test wxub=268) 6.1 K/ L 3.5-10.5 RED BLOOD CELL COUNT (BEAKER) (test marq=037) 2.96 M/ L 4.63-6.08 HEMOGLOBIN (BEAKER) (test htgi=549) 9.7 GM/DL 13.7-17.5 HEMATOCRIT (BEAKER) (test kkyw=282) 30.5 % 40.1-51.0 MEAN CORPUSCULAR VOLUME (BEAKER) (test zwsf=734) 103.0 fL 79.0-92.2 MEAN CORPUSCULAR HEMOGLOBIN (BEAKER) (test 32.8 pg 25.7-32.2 syuh=425) MEAN CORPUSCULAR HEMOGLOBIN CONC (BEAKER) (test 31.8 GM/DL 32.3-36.5 otzf=029) RED CELL DISTRIBUTION WIDTH (BEAKER) (test 16.0 % 11.6-14.4 nohz=397) PLATELET COUNT (BEAKER) (test cosx=878) 221 K/CU MM 150-450 MEAN PLATELET VOLUME (BEAKER) (test hdwl=447) 10.7 fL 9.4-12.4 NUCLEATED RED BLOOD CELLS (BEAKER) (test 0 /100 WBC 0-0 gnle=893) NEUTROPHILS RELATIVE PERCENT (BEAKER) (test 62 % yeav=932) LYMPHOCYTES RELATIVE PERCENT (BEAKER) (test 22 % autl=099) MONOCYTES RELATIVE PERCENT (BEAKER) (test 11 % dbob=639) EOSINOPHILS RELATIVE PERCENT (BEAKER) (test 3 % kjhw=515) BASOPHILS RELATIVE PERCENT (BEAKER) (test 1 % mqwh=772) NEUTROPHILS ABSOLUTE COUNT (BEAKER) (test 3.81 K/ L 1.78-5.38 ctct=044) LYMPHOCYTES ABSOLUTE COUNT (BEAKER) (test 1.32 K/ L 1.32-3.57 dnls=692) MONOCYTES ABSOLUTE COUNT (BEAKER) (test 0.70 K/ L 0.30-0.82 ybjv=874) EOSINOPHILS ABSOLUTE COUNT (BEAKER) (test 0.21 K/ L 0.04-0.54 pdbg=130) BASOPHILS ABSOLUTE COUNT (BEAKER) (test 0.07 K/ L 0.01-0.08 cplk=613) IMMATURE GRANULOCYTES-RELATIVE PERCENT (BEAKER) 0 % 0-1 (test idyj=9993) POCT-GLUCOSE [id number] 07:44:00 Test Item Value Reference Range Comments POC-GLUCOSE METER (BEAKER) 90 mg/dL 70-110 TESTED AT [facility] [address] (test qzzt=2012) [facility] [address] COMPREHENSIVE METABOLIC [id number] 07:29:00 Test Item Value Reference Range Comments TOTAL PROTEIN (BEAKER) 5.7 gm/dL 6.0-8.3 (test tcww=611) ALBUMIN (BEAKER) (test 2.5 g/dL 3.5-5.0 kgas=6658) ALKALINE PHOSPHATASE 411 U/L 40-150 (BEAKER) (test wfqz=451) BILIRUBIN TOTAL (BEAKER) 1.7 mg/dL 0.2-1.2 (test dglw=965) SODIUM (BEAKER) (test 139 meq/L 136-145 xkez=109) POTASSIUM (BEAKER) (test 3.1 meq/L 3.5-5.1 xiyl=745) CHLORIDE (BEAKER) (test 105 meq/L 98-107 xumq=044) CO2 (BEAKER) (test 24 meq/L 22-29 gnme=829) BLOOD UREA NITROGEN 3 mg/dL 7-21 (BEAKER) (test tgdl=075) CREATININE (BEAKER) (test 0.61 mg/dL 0.57-1.25 yifc=994) GLUCOSE RANDOM (BEAKER) 95 mg/dL 70-105 (test cmry=596) CALCIUM (BEAKER) (test 6.8 mg/dL 8.4-10.2 kigw=848) AST (SGOT) (BEAKER) (test 173 U/L 5-34 ramx=454) ALT (SGPT) (BEAKER) (test 53 U/L 6-55 ercd=375) EGFR (BEAKER) (test 153 mL/min/1.73 sq ESTIMATED GFR IS NOT uuff=6614) m ACCURATE CREATININE CLEARANCE IN PREDICTING GLOMERULAR FILTRATION RATE. ESTIMATED GFR IS NOT APPLICABLE FOR DIALYSIS PATIENTS. [id number] 07:28:00 Test Item Value Reference Range Comments PHOSPHORUS (BEAKER) (test znat=189) 2.4 mg/dL 2.3-4.7 [id number] 07:28:00 Test Item Value Reference Range Comments MAGNESIUM (BEAKER) (test mvkg=910) 1.8 mg/dL 1.6-2.6 HEPATIC FUNCTION [id number] 07:28:00 Test Item Value Reference Range Comments TOTAL PROTEIN (BEAKER) (test pdrc=658) 5.7 gm/dL 6.0-8.3 ALBUMIN (BEAKER) (test jwmt=1122) 2.5 g/dL 3.5-5.0 BILIRUBIN TOTAL (BEAKER) (test xklk=677) 1.7 mg/dL 0.2-1.2 BILIRUBIN DIRECT (BEAKER) (test ftha=757) 1.3 mg/dL 0.1-0.5 ALKALINE PHOSPHATASE (BEAKER) (test ekjg=493) 411 U/L 40-150 AST (SGOT) (BEAKER) (test vhkr=063) 173 U/L 5-34 ALT (SGPT) (BEAKER) (test toww=125) 53 U/L 6-55 [id number] 07:28:00 Test Item Value Reference Range Comments LIPASE (BEAKER) (test vbmu=337) 231 U/L 8-78 CBC W/PLT COUNT & AUTO [id number] 07:10:00 Test Item Value Reference Range Comments WHITE BLOOD CELL COUNT (BEAKER) (test eitk=441) 4.5 K/ L 3.5-10.5 RED BLOOD CELL COUNT (BEAKER) (test bnum=776) 2.76 M/ L 4.63-6.08 HEMOGLOBIN (BEAKER) (test fflx=718) 9.2 GM/DL 13.7-17.5 HEMATOCRIT (BEAKER) (test jzfl=105) 29.2 % 40.1-51.0 MEAN CORPUSCULAR VOLUME (BEAKER) (test gixd=066) 105.8 fL 79.0-92.2 MEAN CORPUSCULAR HEMOGLOBIN (BEAKER) (test 33.3 pg 25.7-32.2 elmp=030) MEAN CORPUSCULAR HEMOGLOBIN CONC (BEAKER) (test 31.5 GM/DL 32.3-36.5 vcer=703) RED CELL DISTRIBUTION WIDTH (BEAKER) (test 21.9 % 11.6-14.4 vwga=717) PLATELET COUNT (BEAKER) (test aocn=275) 150 K/CU MM 150-450 MEAN PLATELET VOLUME (BEAKER) (test tlev=934) 10.5 fL 9.4-12.4 NUCLEATED RED BLOOD CELLS (BEAKER) (test 0 /100 WBC 0-0 ygqx=568) NEUTROPHILS RELATIVE PERCENT (BEAKER) (test 65 % yrjh=931) LYMPHOCYTES RELATIVE PERCENT (BEAKER) (test 17 % ixzb=110) MONOCYTES RELATIVE PERCENT (BEAKER) (test 13 % thae=250) EOSINOPHILS RELATIVE PERCENT (BEAKER) (test 2 % cvtf=063) BASOPHILS RELATIVE PERCENT (BEAKER) (test 1 % xybx=870) NEUTROPHILS ABSOLUTE COUNT (BEAKER) (test 2.91 K/ L 1.78-5.38 nets=350) LYMPHOCYTES ABSOLUTE COUNT (BEAKER) (test 0.78 K/ L 1.32-3.57 ryjv=215) MONOCYTES ABSOLUTE COUNT (BEAKER) (test 0.59 K/ L 0.30-0.82 qsib=505) EOSINOPHILS ABSOLUTE COUNT (BEAKER) (test 0.11 K/ L 0.04-0.54 ewhm=158) BASOPHILS ABSOLUTE COUNT (BEAKER) (test 0.05 K/ L 0.01-0.08 vany=208) IMMATURE GRANULOCYTES-RELATIVE PERCENT (BEAKER) 2 % 0-1 (test gfzi=2284) COMPREHENSIVE METABOLIC [id number] 04:23:00 Test Item Value Reference Range Comments TOTAL PROTEIN (BEAKER) 5.5 gm/dL 6.0-8.3 (test pxer=123) ALBUMIN (BEAKER) (test 2.5 g/dL 3.5-5.0 zngm=9580) ALKALINE PHOSPHATASE 453 U/L 40-150 (BEAKER) (test wcok=485) BILIRUBIN TOTAL (BEAKER) 2.0 mg/dL 0.2-1.2 (test tumw=137) SODIUM (BEAKER) (test 138 meq/L 136-145 fzvm=579) POTASSIUM (BEAKER) (test 3.2 meq/L 3.5-5.1 bidi=571) CHLORIDE (BEAKER) (test 104 meq/L 98-107 gyio=039) CO2 (BEAKER) (test 26 meq/L 22-29 wscb=379) BLOOD UREA NITROGEN 3 mg/dL 7-21 (BEAKER) (test hjcu=190) CREATININE (BEAKER) (test 0.51 mg/dL 0.57-1.25 kxgj=779) GLUCOSE RANDOM (BEAKER) 104 mg/dL 70-105 (test ukdk=029) CALCIUM (BEAKER) (test 7.0 mg/dL 8.4-10.2 bnxv=147) AST (SGOT) (BEAKER) (test 166 U/L 5-34 rzvw=567) ALT (SGPT) (BEAKER) (test 52 U/L 6-55 flme=792) EGFR (BEAKER) (test 188 mL/min/1.73 sq ESTIMATED GFR IS NOT ymbb=2011) m ACCURATE CREATININE CLEARANCE IN PREDICTING GLOMERULAR FILTRATION RATE. ESTIMATED GFR IS NOT APPLICABLE FOR DIALYSIS PATIENTS. [id number] 04:21:00 Test Item Value Reference Range Comments PHOSPHORUS (BEAKER) (test rmir=344) 2.0 mg/dL 2.3-4.7 [id number] 04:21:00 Test Item Value Reference Range Comments MAGNESIUM (BEAKER) (test vpys=603) 1.5 mg/dL 1.6-2.6 HEPATIC FUNCTION [id number] 04:21:00 Test Item Value Reference Range Comments TOTAL PROTEIN (BEAKER) (test jizn=830) 5.5 gm/dL 6.0-8.3 ALBUMIN (BEAKER) (test oqtb=3163) 2.5 g/dL 3.5-5.0 BILIRUBIN TOTAL (BEAKER) (test rohu=547) 2.0 mg/dL 0.2-1.2 BILIRUBIN DIRECT (BEAKER) (test jeit=602) 1.5 mg/dL 0.1-0.5 ALKALINE PHOSPHATASE (BEAKER) (test zunh=807) 453 U/L 40-150 AST (SGOT) (BEAKER) (test zzun=265) 166 U/L 5-34 ALT (SGPT) (BEAKER) (test ivyy=355) 52 U/L 6-55 [id number] 04:21:00 Test Item Value Reference Range Comments LIPASE (BEAKER) (test gfyn=511) 283 U/L 8-78 CBC W/PLT COUNT & AUTO [id number] 04:19:00 Test Item Value Reference Range Comments WHITE BLOOD CELL COUNT (BEAKER) (test rcqr=319) 4.6 K/ L 3.5-10.5 RED BLOOD CELL COUNT (BEAKER) (test qkwk=343) 2.82 M/ L 4.63-6.08 HEMOGLOBIN (BEAKER) (test pjgm=540) 9.4 GM/DL 13.7-17.5 HEMATOCRIT (BEAKER) (test xwrb=260) 28.9 % 40.1-51.0 MEAN CORPUSCULAR VOLUME (BEAKER) (test axxe=514) 102.5 fL 79.0-92.2 MEAN CORPUSCULAR HEMOGLOBIN (BEAKER) (test 33.3 pg 25.7-32.2 ooac=218) MEAN CORPUSCULAR HEMOGLOBIN CONC (BEAKER) (test 32.5 GM/DL 32.3-36.5 jwol=671) RED CELL DISTRIBUTION WIDTH (BEAKER) (test 21.8 % 11.6-14.4 uylp=263) PLATELET COUNT (BEAKER) (test aegg=742) 141 K/CU MM 150-450 MEAN PLATELET VOLUME (BEAKER) (test vugr=906) 9.5 fL 9.4-12.4 NUCLEATED RED BLOOD CELLS (BEAKER) (test 0 /100 WBC 0-0 uypt=971) NEUTROPHILS RELATIVE PERCENT (BEAKER) (test 63 % vvkz=437) LYMPHOCYTES RELATIVE PERCENT (BEAKER) (test 22 % uopz=000) MONOCYTES RELATIVE PERCENT (BEAKER) (test 10 % hqph=765) EOSINOPHILS RELATIVE PERCENT (BEAKER) (test 3 % sewa=020) BASOPHILS RELATIVE PERCENT (BEAKER) (test 1 % totg=123) NEUTROPHILS ABSOLUTE COUNT (BEAKER) (test 2.86 K/ L 1.78-5.38 geon=030) LYMPHOCYTES ABSOLUTE COUNT (BEAKER) (test 1.02 K/ L 1.32-3.57 tzsr=550) MONOCYTES ABSOLUTE COUNT (BEAKER) (test 0.44 K/ L 0.30-0.82 dbdw=704) EOSINOPHILS ABSOLUTE COUNT (BEAKER) (test 0.12 K/ L 0.04-0.54 ujpr=983) BASOPHILS ABSOLUTE COUNT (BEAKER) (test 0.05 K/ L 0.01-0.08 avgx=835) IMMATURE GRANULOCYTES-RELATIVE PERCENT (BEAKER) 2 % 0-1 (test jdic=4680) HEMOGLOBIN AND [id number] 03:57:00 Test Item Value Reference Range Comments HEMOGLOBIN (BEAKER) (test sazf=574) 9.4 GM/DL 13.7-17.5 HEMATOCRIT (BEAKER) (test gfkn=637) 28.9 % 40.1-51.0 HEMOGLOBIN AND [id number] 11:59:00 Test Item Value Reference Range Comments HEMOGLOBIN (BEAKER) (test vcrx=624) 8.4 GM/DL 13.7-17.5 HEMATOCRIT (BEAKER) (test rvma=897) 24.7 % 40.1-51.0 [id number] 09:15:00 Test Item Value Reference Range Comments LIPASE (BEAKER) (test svpa=953) 214 U/L 8-78 HEPATIC FUNCTION [id number] 06:09:00 Test Item Value Reference Range Comments TOTAL PROTEIN (BEAKER) (test qphc=086) 5.1 gm/dL 6.0-8.3 ALBUMIN (BEAKER) (test srcp=3304) 2.4 g/dL 3.5-5.0 BILIRUBIN TOTAL (BEAKER) (test jdrj=352) 2.0 mg/dL 0.2-1.2 BILIRUBIN DIRECT (BEAKER) (test pckf=009) 1.4 mg/dL 0.1-0.5 ALKALINE PHOSPHATASE (BEAKER) (test gzlo=703) 418 U/L 40-150 AST (SGOT) (BEAKER) (test calg=892) 147 U/L 5-34 ALT (SGPT) (BEAKER) (test fmxk=084) 51 U/L 6-55 CBC (HEMOGRAM ONLY)[id number] 05:04:00 Test Item Value Reference Range Comments WHITE BLOOD CELL COUNT (BEAKER) (test iwxq=663) 4.8 K/ L 3.5-10.5 RED BLOOD CELL COUNT (BEAKER) (test nwzc=318) 2.41 M/ L 4.63-6.08 HEMOGLOBIN (BEAKER) (test hdkm=485) 8.1 GM/DL 13.7-17.5 HEMATOCRIT (BEAKER) (test ynou=438) 24.1 % 40.1-51.0 MEAN CORPUSCULAR VOLUME (BEAKER) (test jwpo=685) 100.0 fL 79.0-92.2 MEAN CORPUSCULAR HEMOGLOBIN (BEAKER) (test 33.6 pg 25.7-32.2 nyup=024) MEAN CORPUSCULAR HEMOGLOBIN CONC (BEAKER) (test 33.6 GM/DL 32.3-36.5 aolt=728) RED CELL DISTRIBUTION WIDTH (BEAKER) (test 22.4 % 11.6-14.4 cspi=545) PLATELET COUNT (BEAKER) (test otwt=022) 135 K/CU MM 150-450 MEAN PLATELET VOLUME (BEAKER) (test mjyh=480) 10.0 fL 9.4-12.4 NUCLEATED RED BLOOD CELLS (BEAKER) (test 1 /100 WBC 0-0 shix=730) BASIC METABOLIC [id number] 02:50:00 Test Item Value Reference Range Comments SODIUM (BEAKER) (test 137 meq/L 136-145 leve=738) POTASSIUM (BEAKER) (test 3.1 meq/L 3.5-5.1 sxvk=292) CHLORIDE (BEAKER) (test 104 meq/L 98-107 favx=306) CO2 (BEAKER) (test 24 meq/L 22-29 snzl=852) BLOOD UREA NITROGEN 3 mg/dL 7-21 (BEAKER) (test wxbd=168) CREATININE (BEAKER) (test 0.50 mg/dL 0.57-1.25 wmpp=902) GLUCOSE RANDOM (BEAKER) 124 mg/dL 70-105 (test hrlv=988) CALCIUM (BEAKER) (test 6.5 mg/dL 8.4-10.2 vctk=365) EGFR (BEAKER) (test 193 mL/min/1.73 sq m ESTIMATED GFR IS NOT jmhx=0803) ACCURATE CREATININE CLEARANCE IN PREDICTING GLOMERULAR FILTRATION RATE. ESTIMATED GFR IS NOT APPLICABLE FOR DIALYSIS PATIENTS. [id number] 02:14:00 Test Item Value Reference Range Comments PHOSPHORUS (BEAKER) (test cqen=565) 2.6 mg/dL 2.3-4.7 [id number] 02:14:00 Test Item Value Reference Range Comments MAGNESIUM (BEAKER) (test jfvt=298) 1.9 mg/dL 1.6-2.6 HEMOGLOBIN AND [id number] 01:13:00 Test Item Value Reference Range Comments HEMOGLOBIN (BEAKER) (test xhck=669) 8.1 GM/DL 13.7-17.5 HEMATOCRIT (BEAKER) (test dmwo=855) 23.8 % 40.1-51.0 POCT-GLUCOSE [id number] 20:56:00 Test Item Value Reference Range Comments POC-GLUCOSE METER (BEAKER) 105 mg/dL 70-110 TESTED AT [facility] [address] (test hnlm=5348) [facility] [address] COMPREHENSIVE METABOLIC [id number] 14:51:00 Test Item Value Reference Range Comments TOTAL PROTEIN (BEAKER) 6.0 gm/dL 6.0-8.3 (test kcim=231) ALBUMIN (BEAKER) (test 2.8 g/dL 3.5-5.0 uuke=4668) ALKALINE PHOSPHATASE 489 U/L 40-150 (BEAKER) (test oqjq=856) BILIRUBIN TOTAL (BEAKER) 2.7 mg/dL 0.2-1.2 (test szxq=882) SODIUM (BEAKER) (test 141 meq/L 136-145 cldo=000) POTASSIUM (BEAKER) (test 2.6 meq/L 3.5-5.1 uqxj=687) CHLORIDE (BEAKER) (test 103 meq/L 98-107 cygv=102) CO2 (BEAKER) (test 28 meq/L 22-29 juan=345) BLOOD UREA NITROGEN 5 mg/dL 7-21 (BEAKER) (test bjja=208) CREATININE (BEAKER) (test 0.54 mg/dL 0.57-1.25 bdkz=172) GLUCOSE RANDOM (BEAKER) 88 mg/dL 70-105 (test wolk=544) CALCIUM (BEAKER) (test 7.1 mg/dL 8.4-10.2 kjop=760) AST (SGOT) (BEAKER) (test 168 U/L 5-34 gfej=769) ALT (SGPT) (BEAKER) (test 61 U/L 6-55 oxra=178) EGFR (BEAKER) (test 176 mL/min/1.73 sq ESTIMATED GFR IS NOT idgx=1248) m ACCURATE CREATININE CLEARANCE IN PREDICTING GLOMERULAR FILTRATION RATE. ESTIMATED GFR IS NOT APPLICABLE FOR DIALYSIS PATIENTS. Specimen slightly [id number] 14:51:00 Test Item Value Reference Range Comments PHOSPHORUS (BEAKER) (test bmbd=871) 0.9 mg/dL 2.3-4.7 [id number] 14:41:00 Test Item Value Reference Range Comments MAGNESIUM (BEAKER) (test ujqo=027) 1.3 mg/dL 1.6-2.6 [id number] 14:41:00 Test Item Value Reference Range Comments AMYLASE (BEAKER) (test xovb=745) 160 U/L 25-125 Specimen slightly ictericLACTATE DEHYDROGENASE (LDH)2019-02-12 14:41:00 Test Item Value Reference Range Comments LACTATE DEHYDROGENASE (BEAKER) (test vbvk=610) 572 U/L 125-220 [id number] 14:41:00 Test Item Value Reference Range Comments LIPASE (BEAKER) (test gtfk=958) 562 U/L 8-78 Specimen slightly [id number] 14:39:00 Test Item Value Reference Range Comments ETHANOL (BEAKER) (test igab=406) < mg/dL <=10 [id number] 14:27:00 Test Item Value Reference Range Comments D-DIMER QUANTITATIVE (BEAKER) (test ovpj=105) 4.23 MG/L FEU <0.50 Intended Use: The [...] of thrombosis is within 95-100% range.LACTIC ACID, [id number] 14:25:00 Test Item Value Reference Range Comments LACTATE BLOOD VENOUS (2) (BEAKER) (test 1.5 mmol/L 0.5-2.2 okug=4645) [id number] 14:21:00 Test Item Value Reference Range Comments AMMONIA (BEAKER) (test ynmb=889) 50 mol/L 18-72 [id number] 14:17:00 Test Item Value Reference Range Comments PROTIME (BEAKER) (test sgws=802) 17.8 seconds 11.9-14.2 INR (BEAKER) (test zcik=939) 1.6 <=5.9 PARTIAL THROMBOPLASTIN TIME (BEAKER) (test 34.9 seconds 22.5-36.0 ovid=745) Effective 12/11/2018: PT Reference Range ChangeNew: 11.9-14.2 Previous: 11.7- 14.7RECOMMENDED COUMADIN/WARFARIN INR THERAPY RANGESSTANDARD DOSE: 2.0-3.0 Includes: PROPHYLAXIS for venous thrombosis, systemic embolization; TREATMENT for venous thrombosis and/or pulmonary embolus.HIGH RISK: Target INR is2.5-3.5 for patients wiht mechanical heart valves.[id number] 14:17:00 Test Item Value Reference Range Comments FIBRINOGEN LEVEL (BEAKER) (test lvoz=591) 304 mg/dl 225-434 CBC (HEMOGRAM ONLY)2019-02-12 14:13:00 Test Item Value Reference Range Comments WHITE BLOOD CELL COUNT 5.0 K/ L 3.5-10.5 (BEAKER) (test jdsi=655) RED BLOOD CELL COUNT (BEAKER) 2.64 M/ L 4.63-6.08 (test layx=546) HEMOGLOBIN (BEAKER) (test 9.0 GM/DL 13.7-17.5 qhvc=580) HEMATOCRIT (BEAKER) (test 27.0 % 40.1-51.0 kgqm=722) MEAN CORPUSCULAR VOLUME 102.3 fL 79.0-92.2 (BEAKER) (test xoqc=879) MEAN CORPUSCULAR HEMOGLOBIN 34.1 pg 25.7-32.2 (BEAKER) (test xlhp=865) MEAN CORPUSCULAR HEMOGLOBIN 33.3 GM/DL 32.3-36.5 CONC (BEAKER) (test qkay=723) RED CELL DISTRIBUTION WIDTH % 11.6-14.4 Unable to report due to (BEAKER) (test dczs=755) abnormal Platelet population distribution. PLATELET COUNT (BEAKER) (test 146 K/CU MM 150-450 ggai=365) MEAN PLATELET VOLUME (BEAKER) 10.0 fL 9.4-12.4 (test nwyq=016) NUCLEATED RED BLOOD CELLS 1 /100 WBC 0-0 (BEAKER) (test ddxt=042) CBC W/PLT COUNT & AUTO [id number] 05:36:00 Test Item Value Reference Range Comments WHITE BLOOD CELL COUNT (BEAKER) (test trfm=022) 3.1 K/ L 3.5-10.5 RED BLOOD CELL COUNT (BEAKER) (test ygzh=336) 3.39 M/ L 4.63-6.08 HEMOGLOBIN (BEAKER) (test irqe=014) 11.5 GM/DL 13.7-17.5 HEMATOCRIT (BEAKER) (test fnda=041) 33.7 % 40.1-51.0 MEAN CORPUSCULAR VOLUME (BEAKER) (test eqwd=004) 99.4 fL 79.0-92.2 MEAN CORPUSCULAR HEMOGLOBIN (BEAKER) (test 33.9 pg 25.7-32.2 kfww=895) MEAN CORPUSCULAR HEMOGLOBIN CONC (BEAKER) (test 34.1 GM/DL 32.3-36.5 crcc=396) RED CELL DISTRIBUTION WIDTH (BEAKER) (test 12.8 % 11.6-14.4 povj=207) PLATELET COUNT (BEAKER) (test zqjo=995) 130 K/CU MM 150-450 MEAN PLATELET VOLUME (BEAKER) (test nmna=621) 10.4 fL 9.4-12.4 NUCLEATED RED BLOOD CELLS (BEAKER) (test 0 /100 WBC 0-0 pbfi=360) NEUTROPHILS RELATIVE PERCENT (BEAKER) (test 51 % uncp=157) LYMPHOCYTES RELATIVE PERCENT (BEAKER) (test 31 % krml=739) MONOCYTES RELATIVE PERCENT (BEAKER) (test 12 % qkww=273) EOSINOPHILS RELATIVE PERCENT (BEAKER) (test 4 % apmt=935) BASOPHILS RELATIVE PERCENT (BEAKER) (test 1 % ktmg=146) NEUTROPHILS ABSOLUTE COUNT (BEAKER) (test 1.61 K/ L 1.78-5.38 fwcr=315) LYMPHOCYTES ABSOLUTE COUNT (BEAKER) (test 0.98 K/ L 1.32-3.57 rgvk=761) MONOCYTES ABSOLUTE COUNT (BEAKER) (test 0.38 K/ L 0.30-0.82 obbn=059) EOSINOPHILS ABSOLUTE COUNT (BEAKER) (test 0.11 K/ L 0.04-0.54 kngq=678) BASOPHILS ABSOLUTE COUNT (BEAKER) (test 0.04 K/ L 0.01-0.08 hrfj=899) IMMATURE GRANULOCYTES-RELATIVE PERCENT (BEAKER) 1 % 0-1 (test bmoi=8714) MR, ABDOMEN, [id number] 13:31:00FINAL REPORT MRCP, MRI of abdomen without [...] or choledocholithiasis identified. Trace ascites. Signed: Korin Reyesort Verified Date/Time: 12/12/2018 13:31:00 Reading Location: [facility] [id number] CT Body Reading Room COMPREHENSIVE METABOLIC [id number] 09:56:00 Test Item Value Reference Range Comments TOTAL PROTEIN (BEAKER) 5.5 gm/dL 6.0-8.3 (test xyxx=324) ALBUMIN (BEAKER) (test 3.1 g/dL 3.5-5.0 bqyx=7659) ALKALINE PHOSPHATASE 116 U/L 40-150 (BEAKER) (test zsos=281) BILIRUBIN TOTAL (BEAKER) 1.9 mg/dL 0.2-1.2 (test goej=152) SODIUM (BEAKER) (test 139 meq/L 136-145 uqbs=730) POTASSIUM (BEAKER) (test 3.0 meq/L 3.5-5.1 rzob=008) CHLORIDE (BEAKER) (test 107 meq/L 98-107 avtc=143) CO2 (BEAKER) (test 23 meq/L 22-29 omrz=302) BLOOD UREA NITROGEN 4 mg/dL 7-21 (BEAKER) (test qvwv=725) CREATININE (BEAKER) (test 0.56 mg/dL 0.57-1.25 wawu=115) GLUCOSE RANDOM (BEAKER) 116 mg/dL 70-105 (test lexx=582) CALCIUM (BEAKER) (test 7.4 mg/dL 8.4-10.2 kqmt=163) AST (SGOT) (BEAKER) (test 297 U/L 5-34 nqng=815) ALT (SGPT) (BEAKER) (test 173 U/L 6-55 eutu=013) EGFR (BEAKER) (test 169 mL/min/1.73 sq ESTIMATED GFR IS NOT totq=1748) m ACCURATE CREATININE CLEARANCE IN PREDICTING GLOMERULAR FILTRATION RATE. ESTIMATED GFR IS NOT APPLICABLE FOR DIALYSIS PATIENTS. CBC W/PLT COUNT & AUTO [id number] 04:42:00 Test Item Value Reference Range Comments WHITE BLOOD CELL COUNT (BEAKER) (test oyeg=581) 3.1 K/ L 3.5-10.5 RED BLOOD CELL COUNT (BEAKER) (test wdvt=209) 3.09 M/ L 4.63-6.08 HEMOGLOBIN (BEAKER) (test bdab=561) 10.7 GM/DL 13.7-17.5 HEMATOCRIT (BEAKER) (test xizj=542) 30.5 % 40.1-51.0 MEAN CORPUSCULAR VOLUME (BEAKER) (test qidg=903) 98.7 fL 79.0-92.2 MEAN CORPUSCULAR HEMOGLOBIN (BEAKER) (test 34.6 pg 25.7-32.2 pvhd=182) MEAN CORPUSCULAR HEMOGLOBIN CONC (BEAKER) (test 35.1 GM/DL 32.3-36.5 dhdf=043) RED CELL DISTRIBUTION WIDTH (BEAKER) (test 12.4 % 11.6-14.4 cbep=781) PLATELET COUNT (BEAKER) (test gtet=921) 99 K/CU MM 150-450 MEAN PLATELET VOLUME (BEAKER) (test hnwl=835) 11.0 fL 9.4-12.4 NUCLEATED RED BLOOD CELLS (BEAKER) (test 0 /100 WBC 0-0 rtsl=424) NEUTROPHILS RELATIVE PERCENT (BEAKER) (test 60 % wcqa=880) LYMPHOCYTES RELATIVE PERCENT (BEAKER) (test 26 % udqj=218) MONOCYTES RELATIVE PERCENT (BEAKER) (test 11 % qnqc=128) EOSINOPHILS RELATIVE PERCENT (BEAKER) (test 2 % cqbq=621) BASOPHILS RELATIVE PERCENT (BEAKER) (test 1 % itdl=397) NEUTROPHILS ABSOLUTE COUNT (BEAKER) (test 1.84 K/ L 1.78-5.38 vini=551) LYMPHOCYTES ABSOLUTE COUNT (BEAKER) (test 0.81 K/ L 1.32-3.57 qtme=576) MONOCYTES ABSOLUTE COUNT (BEAKER) (test qcsj=746) 0.34 K/ L 0.30-0.82 EOSINOPHILS ABSOLUTE COUNT (BEAKER) (test 0.06 K/ L 0.04-0.54 gzyb=666) BASOPHILS ABSOLUTE COUNT (BEAKER) (test pcgk=849) 0.03 K/ L 0.01-0.08 IMMATURE GRANULOCYTES-RELATIVE PERCENT (BEAKER) 0 % 0-1 (test yxto=7818) FL, ESOPH, SWALLOW FUNCTION, WITH CINE OR [id number] 12:02:00Reason for exam:->pneumomediastinum, rule out esophageal perforationFINAL [...] Verified Date/Time: 12/11/2018 12:02: 17 Reading Location: [facility] B1 [id number] Ortho Consult Reading Room BASI METABOLIC [id number] 07:31:00 Test Item Value Reference Range Comments SODIUM (BEAKER) (test 139 meq/L 136-145 ufrl=268) POTASSIUM (BEAKER) (test 3.4 meq/L 3.5-5.1 Specimen slightly ckll=801) hemolyzed CHLORIDE (BEAKER) (test 103 meq/L 98-107 ztec=501) CO2 (BEAKER) (test 20 meq/L 22-29 lrkc=175) BLOOD UREA NITROGEN 18 mg/dL 7-21 (BEAKER) (test ipvl=969) CREATININE (BEAKER) (test 0.73 mg/dL 0.57-1.25 Specimen slightly ewgl=116) hemolyzed GLUCOSE RANDOM (BEAKER) 67 mg/dL 70-105 (test gnlb=503) CALCIUM (BEAKER) (test 8.6 mg/dL 8.4-10.2 fxxq=045) EGFR (BEAKER) (test 125 mL/min/1.73 sq m ESTIMATED GFR IS NOT hxry=1452) ACCURATE CREATININE CLEARANCE IN PREDICTING GLOMERULAR FILTRATION RATE. ESTIMATED GFR IS NOT APPLICABLE FOR DIALYSIS PATIENTS. CBC W/PLT COUNT & AUTO [id number] 07:12:00 Test Item Value Reference Range Comments WHITE BLOOD CELL COUNT (BEAKER) (test keis=774) 4.6 K/ L 3.5-10.5 RED BLOOD CELL COUNT (BEAKER) (test wxjj=964) 3.19 M/ L 4.63-6.08 HEMOGLOBIN (BEAKER) (test qngx=639) 11.1 GM/DL 13.7-17.5 HEMATOCRIT (BEAKER) (test fobg=880) 31.0 % 40.1-51.0 MEAN CORPUSCULAR VOLUME (BEAKER) (test dvcx=074) 97.2 fL 79.0-92.2 MEAN CORPUSCULAR HEMOGLOBIN (BEAKER) (test 34.8 pg 25.7-32.2 vaef=870) MEAN CORPUSCULAR HEMOGLOBIN CONC (BEAKER) (test 35.8 GM/DL 32.3-36.5 uoxg=000) RED CELL DISTRIBUTION WIDTH (BEAKER) (test 13.0 % 11.6-14.4 ygnu=215) PLATELET COUNT (BEAKER) (test bgqy=531) 103 K/CU MM 150-450 MEAN PLATELET VOLUME (BEAKER) (test sdjh=350) 11.0 fL 9.4-12.4 NUCLEATED RED BLOOD CELLS (BEAKER) (test 0 /100 WBC 0-0 lkmb=489) NEUTROPHILS RELATIVE PERCENT (BEAKER) (test 73 % yzjz=257) LYMPHOCYTES RELATIVE PERCENT (BEAKER) (test 16 % edvt=931) MONOCYTES RELATIVE PERCENT (BEAKER) (test 9 % sjyo=783) EOSINOPHILS RELATIVE PERCENT (BEAKER) (test 1 % uhlh=010) BASOPHILS RELATIVE PERCENT (BEAKER) (test 0 % muqo=463) NEUTROPHILS ABSOLUTE COUNT (BEAKER) (test 3.36 K/ L 1.78-5.38 kimx=078) LYMPHOCYTES ABSOLUTE COUNT (BEAKER) (test 0.75 K/ L 1.32-3.57 pzcq=289) MONOCYTES ABSOLUTE COUNT (BEAKER) (test 0.41 K/ L 0.30-0.82 bqgf=357) EOSINOPHILS ABSOLUTE COUNT (BEAKER) (test 0.04 K/ L 0.04-0.54 efij=219) BASOPHILS ABSOLUTE COUNT (BEAKER) (test 0.02 K/ L 0.01-0.08 vgvo=265) IMMATURE GRANULOCYTES-RELATIVE PERCENT (BEAKER) 1 % 0-1 (test tfuv=2088) RAD, CHEST, 1 VIEW, NON [id number] 20:13:00Reason for exam:-> pneumomediastinumShould this be performed [...] Verified Date /Time: 12/10/2018 20:13:39 Reading Location: [address] Reading Room [id number] 19:12:00 Test Item Value Reference Range Comments MAGNESIUM (BEAKER) (test 1.8 mg/dL 1.6-2.6 Specimen slightly hemolyzed lofv=798) COMPREHENSIVE METABOLIC [id number] 19:12:00 Test Item Value Reference Range Comments TOTAL PROTEIN (BEAKER) 6.3 gm/dL 6.0-8.3 Specimen slightly (test wmbd=642) hemolyzed ALBUMIN (BEAKER) (test 3.7 g/dL 3.5-5.0 Specimen slightly pqsh=9160) hemolyzed ALKALINE PHOSPHATASE 129 U/L 40-150 (BEAKER) (test snis=403) BILIRUBIN TOTAL (BEAKER) 2.9 mg/dL 0.2-1.2 Specimen slightly (test dpnl=319) hemolyzed SODIUM (BEAKER) (test 137 meq/L 136-145 qncq=734) POTASSIUM (BEAKER) (test 2.7 meq/L 3.5-5.1 Specimen slightly spai=882) hemolyzed CHLORIDE (BEAKER) (test 99 meq/L 98-107 xfhr=479) CO2 (BEAKER) (test 23 meq/L 22-29 spmr=669) BLOOD UREA NITROGEN 22 mg/dL 7-21 (BEAKER) (test hkzy=046) CREATININE (BEAKER) (test 1.28 mg/dL 0.57-1.25 Specimen slightly yjyc=714) hemolyzed GLUCOSE RANDOM (BEAKER) 78 mg/dL 70-105 (test doyq=830) CALCIUM (BEAKER) (test 8.5 mg/dL 8.4-10.2 dlmk=317) AST (SGOT) (BEAKER) (test 502 U/L 5-34 Specimen slightly behm=260) hemolyzed ALT (SGPT) (BEAKER) (test 225 U/L 6-55 Specimen slightly iajj=351) hemolyzed EGFR (BEAKER) (test 65 mL/min/1.73 sq m ESTIMATED GFR IS NOT edqt=5693) ACCURATE CREATININE CLEARANCE IN PREDICTING GLOMERULAR FILTRATION RATE. ESTIMATED GFR IS NOT APPLICABLE FOR DIALYSIS PATIENTS. Specimen slightly ictericPROTHROMBIN [id number] 18:53:00 Test Item Value Reference Range Comments PROTIME (BEAKER) (test tjcf=328) 15.8 seconds 11.7-14.7 INR (BEAKER) (test kxnf=114) 1.3 <=5.9 RECOMMENDED COUMADIN/WARFARIN INR THERAPY RANGESSTANDARD DOSE: 2.0 - 3.0 Includes: PROPHYLAXIS forvenous thrombosis, systemic embolization; TREATMENT for venous thrombosis and/or pulmonary embolus.HIGH RISK: Target INR is 2.5-3.5 for patients with mechanical heart valves.CBC W/PLT COUNT & AUTO [id number] 18:49:00 Test Item Value Reference Range Comments WHITE BLOOD CELL COUNT (BEAKER) (test felo=632) 6.0 K/ L 3.5-10.5 RED BLOOD CELL COUNT (BEAKER) (test eerh=728) 3.44 M/ L 4.63-6.08 HEMOGLOBIN (BEAKER) (test mobp=148) 11.6 GM/DL 13.7-17.5 HEMATOCRIT (BEAKER) (test sagg=118) 34.1 % 40.1-51.0 MEAN CORPUSCULAR VOLUME (BEAKER) (test lvjj=808) 99.1 fL 79.0-92.2 MEAN CORPUSCULAR HEMOGLOBIN (BEAKER) (test 33.7 pg 25.7-32.2 ryqi=313) MEAN CORPUSCULAR HEMOGLOBIN CONC (BEAKER) (test 34.0 GM/DL 32.3-36.5 dqfo=792) RED CELL DISTRIBUTION WIDTH (BEAKER) (test 13.1 % 11.6-14.4 kfns=712) PLATELET COUNT (BEAKER) (test hzzn=435) 109 K/CU MM 150-450 MEAN PLATELET VOLUME (BEAKER) (test vcmw=074) 11.0 fL 9.4-12.4 NUCLEATED RED BLOOD CELLS (BEAKER) (test 0 /100 WBC 0-0 xfmj=504) NEUTROPHILS RELATIVE PERCENT (BEAKER) (test 81 % ghsl=499) LYMPHOCYTES RELATIVE PERCENT (BEAKER) (test 12 % vxoj=649) MONOCYTES RELATIVE PERCENT (BEAKER) (test 7 % masz=848) EOSINOPHILS RELATIVE PERCENT (BEAKER) (test 0 % alyy=970) BASOPHILS RELATIVE PERCENT (BEAKER) (test 0 % ynel=582) NEUTROPHILS ABSOLUTE COUNT (BEAKER) (test 4.84 K/ L 1.78-5.38 qmtu=628) LYMPHOCYTES ABSOLUTE COUNT (BEAKER) (test 0.72 K/ L 1.32-3.57 rsec=912) MONOCYTES ABSOLUTE COUNT (BEAKER) (test 0.41 K/ L 0.30-0.82 tmxf=116) EOSINOPHILS ABSOLUTE COUNT (BEAKER) (test 0.01 K/ L 0.04-0.54 afep=786) BASOPHILS ABSOLUTE COUNT (BEAKER) (test 0.02 K/ L 0.01-0.08 dxkb=659) IMMATURE GRANULOCYTES-RELATIVE PERCENT (BEAKER) 0 % 0-1 (test gtbo=8208) BLOOD [id number] 20:01:00 Test Item Value Reference Range Comments CULTURE (BEAKER) (test tbuh=6641) No growth in 5 days BLOOD [id number] 20:01:00 Test Item Value Reference Range Comments CULTURE (BEAKER) (test hjan=7752) No growth in 5 days RAD, CHEST, 1 VIEW, NON [id number] 13:13:00Reason for exam:->evalute for pneumoniaShould this be performed at the bedside?->YesAddendum BeginsREPORT STATUS:A Addendum:Clinical diagnosis alcohol withdrawalsyndrome, electrolyte disturbances, elevated liver function tests, pneumonia, Signed: Marilu Sharpe MDReport Verified Date/Time: 11/01/2018 13:13: 23 Reading Location: [address] Consult Reading RoomAddendum EndsFINAL REPORT Chest [...] MDReport Verified Date/Time: 10/28 15:36:38 Reading Location: [address] Consult Reading Room U/S, ABDOMINAL, WITH [id number] 10:43:00Reason for exam:->evaluate for portal hypertension, cirrhosis, [...] Sharpeeport Verified Date/Time: 10/31/2018 10:43:58 Reading Location: [address] Ultrasound Reading Room COMPREHENSIVE METABOLIC [id number] 06:57:00 Test Item Value Reference Range Comments TOTAL PROTEIN (BEAKER) 6.3 gm/dL 6.0-8.3 (test svca=712) ALBUMIN (BEAKER) (test 3.4 g/dL 3.5-5.0 kdkb=4370) ALKALINE PHOSPHATASE 165 U/L 40-150 (BEAKER) (test elzh=154) BILIRUBIN TOTAL (BEAKER) 0.6 mg/dL 0.2-1.2 (test dyqg=771) SODIUM (BEAKER) (test 140 meq/L 136-145 uiwb=924) POTASSIUM (BEAKER) (test 3.6 meq/L 3.5-5.1 vklq=773) CHLORIDE (BEAKER) (test 102 meq/L 98-107 libg=171) CO2 (BEAKER) (test 29 meq/L 22-29 vepd=014) BLOOD UREA NITROGEN 3 mg/dL 7-21 (BEAKER) (test zqcp=057) CREATININE (BEAKER) (test 0.55 mg/dL 0.57-1.25 zdzd=259) GLUCOSE RANDOM (BEAKER) 89 mg/dL 70-105 (test mywq=928) CALCIUM (BEAKER) (test 9.2 mg/dL 8.4-10.2 ympr=766) AST (SGOT) (BEAKER) (test 184 U/L 5-34 zccs=801) ALT (SGPT) (BEAKER) (test 156 U/L 6-55 mbtq=424) EGFR (BEAKER) (test 173 mL/min/1.73 sq ESTIMATED GFR IS NOT itei=6326) m ACCURATE CREATININE CLEARANCE IN PREDICTING GLOMERULAR FILTRATION RATE. ESTIMATED GFR IS NOT APPLICABLE FOR DIALYSIS PATIENTS. HEMOGLOBIN [id number] 09:30:00 Test Item Value Reference Range Comments HEMOGLOBIN A1C (BEAKER) (test ncps=871) 4.9 % 4.3-6.1 COMPREHENSIVE METABOLIC [id number] 05:17:00 Test Item Value Reference Range Comments TOTAL PROTEIN (BEAKER) 6.5 gm/dL 6.0-8.3 (test qhvx=544) ALBUMIN (BEAKER) (test 3.6 g/dL 3.5-5.0 wrfr=6172) ALKALINE PHOSPHATASE 170 U/L 40-150 (BEAKER) (test oaqp=694) BILIRUBIN TOTAL (BEAKER) 0.9 mg/dL 0.2-1.2 (test ibqu=887) SODIUM (BEAKER) (test 141 meq/L 136-145 urbg=868) POTASSIUM (BEAKER) (test 3.5 meq/L 3.5-5.1 pqvs=159) CHLORIDE (BEAKER) (test 104 meq/L 98-107 zeje=586) CO2 (BEAKER) (test 26 meq/L 22-29 wknk=377) BLOOD UREA NITROGEN 4 mg/dL 7-21 (BEAKER) (test xdfb=728) CREATININE (BEAKER) (test 0.55 mg/dL 0.57-1.25 pxut=404) GLUCOSE RANDOM (BEAKER) 89 mg/dL 70-105 (test mhbi=233) CALCIUM (BEAKER) (test 9.3 mg/dL 8.4-10.2 qkji=334) AST (SGOT) (BEAKER) (test 167 U/L 5-34 vjsv=550) ALT (SGPT) (BEAKER) (test 156 U/L 6-55 ukcm=596) EGFR (BEAKER) (test 173 mL/min/1.73 sq ESTIMATED GFR IS NOT ngcn=2262) m ACCURATE CREATININE CLEARANCE IN PREDICTING GLOMERULAR FILTRATION RATE. ESTIMATED GFR IS NOT APPLICABLE FOR DIALYSIS PATIENTS. CBC W/PLT COUNT & AUTO [id number] 04:53:00 Test Item Value Reference Range Comments WHITE BLOOD CELL COUNT (BEAKER) (test qxwz=786) 3.4 K/ L 3.5-10.5 RED BLOOD CELL COUNT (BEAKER) (test nxie=733) 3.45 M/ L 4.63-6.08 HEMOGLOBIN (BEAKER) (test pqzo=969) 11.8 GM/DL 13.7-17.5 HEMATOCRIT (BEAKER) (test hbix=669) 34.4 % 40.1-51.0 MEAN CORPUSCULAR VOLUME (BEAKER) (test ydcm=701) 99.7 fL 79.0-92.2 MEAN CORPUSCULAR HEMOGLOBIN (BEAKER) (test 34.2 pg 25.7-32.2 vgri=634) MEAN CORPUSCULAR HEMOGLOBIN CONC (BEAKER) (test 34.3 GM/DL 32.3-36.5 wlzr=673) RED CELL DISTRIBUTION WIDTH (BEAKER) (test 12.2 % 11.6-14.4 pzbo=304) PLATELET COUNT (BEAKER) (test vedd=830) 175 K/CU MM 150-450 MEAN PLATELET VOLUME (BEAKER) (test iiwg=684) 10.3 fL 9.4-12.4 NUCLEATED RED BLOOD CELLS (BEAKER) (test 0 /100 WBC 0-0 jjlu=357) NEUTROPHILS RELATIVE PERCENT (BEAKER) (test 55 % jmhx=052) LYMPHOCYTES RELATIVE PERCENT (BEAKER) (test 30 % evgd=074) MONOCYTES RELATIVE PERCENT (BEAKER) (test 11 % mdss=203) EOSINOPHILS RELATIVE PERCENT (BEAKER) (test 3 % lnvc=118) BASOPHILS RELATIVE PERCENT (BEAKER) (test 1 % prdw=045) NEUTROPHILS ABSOLUTE COUNT (BEAKER) (test 1.89 K/ L 1.78-5.38 zxfv=070) LYMPHOCYTES ABSOLUTE COUNT (BEAKER) (test 1.03 K/ L 1.32-3.57 lgrl=165) MONOCYTES ABSOLUTE COUNT (BEAKER) (test 0.39 K/ L 0.30-0.82 lulr=026) EOSINOPHILS ABSOLUTE COUNT (BEAKER) (test 0.09 K/ L 0.04-0.54 oubj=857) BASOPHILS ABSOLUTE COUNT (BEAKER) (test 0.03 K/ L 0.01-0.08 ufuk=249) IMMATURE GRANULOCYTES-RELATIVE PERCENT (BEAKER) 0 % 0-1 (test hfmn=8325) LIPID [id number] 17:30:00 Test Item Value Reference Range Comments TRIGLYCERIDES (BEAKER) (test zjga=532) 90 mg/dL CHOLESTEROL (BEAKER) (test yxnw=397) 140 mg/dL HDL CHOLESTEROL (BEAKER) (test nckd=890) 37 mg/dL LDL CHOLESTEROL CALCULATED (BEAKER) (test 85 mg/dL hsde=232) Triglyceride Reference Range: Low Risk <150 Borderline 150- 199 High Risk 200-499 Very High Risk >=500Cholesterol Reference Range: Low Risk <200 Borderline 200-239 High Risk > 240HDL Cholesterol Reference Range: Low Risk >=60 High Risk <40LDL Cholesterol Reference Range: Optimal <100 Near Optimal 100-129 Borderline 130-159 High 160-189 Very High >=190HEPATITIS C PCR, [id number] 14:57:00 Test Item Value Reference Range Comments HCV RESULT COMPONENT (GALEN) HCV RNA not detected HCV RNA not detected (test fids=9524) This test uses a Real-Time Polymerase Chain Reaction (RT-PCR) methodology and was performed using MARIAN[employer] Ampliprep/MARIANO TaqMan HCV test kit version 2.0 ( [employer]).Reportable range for this assay is 15 - 100,000, 000 IU per mL (1.18 - 8.00 Log IU/mL).RAD, ABDOMEN/KUB, 1 VIEW [id number] 14: 17:00Reason for exam:->abd distensionFINAL REPORT TECHNIQUE: Supine radiographs of the abdomen dated 10/29/2018. HISTORY: Abdominal distention. COMPARISON: None IMPRESSION:No air-filled, dilated loops of bowel to suggest obstruction. No free intraperitoneal air. No abnormal soft tissue mass or calcification. Signed:Nancy Concepcioneport Verified Date/ Time: 10/29/2018 14:17:17 Reading Location: [facility] Radiology Reading Room [id number] 13:28:00 Test Item Value Reference Range Comments RPR SCREEN (GALEN) (test bflo=943) Nonreactive Nonreactive [id number] 05:12:00 Test Item Value Reference Range Comments PHOSPHORUS (BEAKER) (test dlat=476) 2.5 mg/dL 2.3-4.7 COMPREHENSIVE METABOLIC [id number] 05:12:00 Test Item Value Reference Range Comments TOTAL PROTEIN (BEAKER) 6.9 gm/dL 6.0-8.3 (test urug=934) ALBUMIN (BEAKER) (test 3.9 g/dL 3.5-5.0 wppe=0689) ALKALINE PHOSPHATASE 200 U/L 40-150 (BEAKER) (test tfww=839) BILIRUBIN TOTAL (BEAKER) 1.2 mg/dL 0.2-1.2 (test anpl=264) SODIUM (BEAKER) (test 137 meq/L 136-145 zqnw=497) POTASSIUM (BEAKER) (test 3.3 meq/L 3.5-5.1 sqvl=018) CHLORIDE (BEAKER) (test 97 meq/L 98-107 mxqm=037) CO2 (BEAKER) (test 27 meq/L 22-29 dsfh=603) BLOOD UREA NITROGEN 3 mg/dL 7-21 (BEAKER) (test lxit=371) CREATININE (BEAKER) (test 0.57 mg/dL 0.57-1.25 rhnn=456) GLUCOSE RANDOM (BEAKER) 108 mg/dL 70-105 (test jscm=260) CALCIUM (BEAKER) (test 9.4 mg/dL 8.4-10.2 gfgt=034) AST (SGOT) (BEAKER) (test 263 U/L 5-34 jgmt=412) ALT (SGPT) (BEAKER) (test 215 U/L 6-55 ewme=999) EGFR (BEAKER) (test 166 mL/min/1.73 sq ESTIMATED GFR IS NOT kfxn=3553) m ACCURATE CREATININE CLEARANCE IN PREDICTING GLOMERULAR FILTRATION RATE. ESTIMATED GFR IS NOT APPLICABLE FOR DIALYSIS PATIENTS. PROTHROMBIN [id number] 04:53:00 Test Item Value Reference Range Comments PROTIME (BEAKER) (test autk=103) 16.0 seconds 11.7-14.7 INR (BEAKER) (test ydtq=535) 1.3 <=5.9 RECOMMENDED COUMADIN/WARFARIN INR THERAPY RANGESSTANDARD DOSE: 2.0 - 3.0 Includes: PROPHYLAXIS forvenous thrombosis, systemic embolization; TREATMENT for venous thrombosis and/or pulmonary embolus.HIGH RISK: Target INR is 2.5-3.5 for patients with mechanical heart valves.URINALYSIS W/ REFLEX URINE [id number] 18:43:00 Test Item Value Reference Range Comments COLOR (BEAKER) (test dhzm=535) Yellow CLARITY (BEAKER) (test sgpi=060) Clear SPECIFIC GRAVITY UA (BEAKER) (test uryv=250) 1.007 1.001-1.035 PH UA (BEAKER) (test bptq=951) 7.5 5.0-8.0 PROTEIN UA (BEAKER) (test qcfi=057) 20 mg/dL Negative GLUCOSE UA (BEAKER) (test tvml=769) Negative Negative KETONES UA (BEAKER) (test bmpe=816) 20 mg/dL Negative BILIRUBIN UA (BEAKER) (test wlhy=046) Negative Negative BLOOD UA (BEAKER) (test lzsv=659) Trace Negative NITRITE UA (BEAKER) (test vpvv=401) Negative Negative LEUKOCYTE ESTERASE UA (BEAKER) (test wvea=485) Negative Negative UROBILINOGEN UA (BEAKER) (test pnmi=980) 2.0 mg/dL 0.2-1.0 RBC UA (BEAKER) (test psgt=089) 3 /HPF WBC UA (BEAKER) (test rzqi=062) < /HPF MUCUS (BEAKER) (test cpez=2202) Rare SOURCE(BEAKER) (test jvca=1064) VITAMIN B12 AND [id number] 15:08:00 Test Item Value Reference Range Comments VITAMIN B12 (BEAKER) (test ekcn=050) 1678 pg/mL 213-816 FOLATE (BEAKER) (test hxvs=097) 19.4 ng/mL >=7.0 [id number] 14:48:00 Test Item Value Reference Range Comments FERRITIN (BEAKER) (test dzfh=127) 1698 ng/mL 5-275 IRON, TIBC, % SAT. (WITHOUT FERRITIN)[id number] 13:26:00 Test Item Value Reference Range Comments IRON (BEAKER) (test pnia=467) 44.0 ug/dL 40.0-160.0 TOTAL IRON BINDING CAPACITY (BEAKER) (test 186 ug/dL 250-450 ispo=946) IRON % SATURATION (2) (BEAKER) (test iqzr=2212) 24 % 20-55 HEPATITIS B SURFACE [id number] 13:26:00 Test Item Value Reference Range Comments HEPATITIS B SURFACE ANTIGEN (2) (BEAKER) (test Nonreactive Nonreactive ybdw=6300) HEPATITIS C [id number] 13:26:00 Test Item Value Reference Range Comments HEPATITIS C ANTIBODY (BEAKER) (test evis=849) Nonreactive Nonreactive HIV-1 ANTIGEN WITH HIV-1/2 [id number] 13:26:00 Test Item Value Reference Range Comments HIV-1 ANTIGEN WITH HIV 1\T\2 ANTIBODY (2) Nonreactive Nonreactive (BEAKER) (test byty=8608) HEPATITIS B SURFACE [id number] 13:19:00 Test Item Value Reference Range Comments HEPATITIS B SURFACE ANTIBODY (BEAKER) (test 34.5 mIU/mL <8.0 ftyt=509) HEPATITIS A ANTIBODY, [id number] 13:19:00 Test Item Value Reference Range Comments HEPATITIS A IGM ANTIBODY (BEAKER) (test Nonreactive Nonreactive prqf=740) HEPATITIS B CORE ANTIBODY, [id number] 13:19:00 Test Item Value Reference Range Comments HEPATITIS B CORE TOTAL ANTIBODY (BEAKER) (test Nonreactive Nonreactive pkui=347) HEPATITIS A ANTIBODY, [id number] 13:19:00 Test Item Value Reference Range Comments HEPATITIS A IGG ANTIBODY (BEAKER) (test Nonreactive Nonreactive rckq=8796) PROTHROMBIN [id number] 13:00:00 Test Item Value Reference Range Comments PROTIME (BEAKER) (test vdxf=380) 15.5 seconds 11.7-14.7 INR (BEAKER) (test oops=887) 1.2 <=5.9 RECOMMENDED COUMADIN/WARFARIN INR THERAPY RANGESSTANDARD DOSE: 2.0 - 3.0 Includes: PROPHYLAXIS forvenous thrombosis, systemic embolization; TREATMENT for venous thrombosis and/or pulmonary embolus.HIGH RISK: Target INR is 2.5-3.5 for patients with mechanical heart valves.[id number] 03:31:00 Test Item Value Reference Range Comments PHOSPHORUS (BEAKER) (test vfcd=436) 3.5 mg/dL 2.3-4.7 [id number] 03:31:00 Test Item Value Reference Range Comments MAGNESIUM (BEAKER) (test ewyv=311) 1.5 mg/dL 1.6-2.6 COMPREHENSIVE METABOLIC [id number] 03:31:00 Test Item Value Reference Range Comments TOTAL PROTEIN (BEAKER) 6.5 gm/dL 6.0-8.3 (test myhj=625) ALBUMIN (BEAKER) (test 3.7 g/dL 3.5-5.0 oldu=8606) ALKALINE PHOSPHATASE 200 U/L 40-150 (BEAKER) (test yhgw=575) BILIRUBIN TOTAL (BEAKER) 0.8 mg/dL 0.2-1.2 (test rbpk=601) SODIUM (BEAKER) (test 142 meq/L 136-145 mfnt=758) POTASSIUM (BEAKER) (test 3.1 meq/L 3.5-5.1 fcrv=131) CHLORIDE (BEAKER) (test 103 meq/L 98-107 khow=834) CO2 (BEAKER) (test 24 meq/L 22-29 szfi=423) BLOOD UREA NITROGEN 4 mg/dL 7-21 (BEAKER) (test dvcv=590) CREATININE (BEAKER) (test 0.55 mg/dL 0.57-1.25 tcwo=831) GLUCOSE RANDOM (BEAKER) 100 mg/dL 70-105 (test oksn=998) CALCIUM (BEAKER) (test 8.5 mg/dL 8.4-10.2 efhq=122) AST (SGOT) (BEAKER) (test 318 U/L 5-34 vvrc=217) ALT (SGPT) (BEAKER) (test 244 U/L 6-55 stxv=320) EGFR (BEAKER) (test 173 mL/min/1.73 sq ESTIMATED GFR IS NOT jcjl=4917) m ACCURATE CREATININE CLEARANCE IN PREDICTING GLOMERULAR FILTRATION RATE. ESTIMATED GFR IS NOT APPLICABLE FOR DIALYSIS PATIENTS. CBC W/PLT COUNT & AUTO [id number] 03:03:00 Test Item Value Reference Range Comments WHITE BLOOD CELL COUNT (BEAKER) (test rlwp=482) 4.2 K/ L 3.5-10.5 RED BLOOD CELL COUNT (BEAKER) (test ogpd=860) 3.61 M/ L 4.63-6.08 HEMOGLOBIN (BEAKER) (test nwdy=321) 12.3 GM/DL 13.7-17.5 HEMATOCRIT (BEAKER) (test qttq=273) 35.9 % 40.1-51.0 MEAN CORPUSCULAR VOLUME (BEAKER) (test mxzr=950) 99.4 fL 79.0-92.2 MEAN CORPUSCULAR HEMOGLOBIN (BEAKER) (test 34.1 pg 25.7-32.2 ppam=323) MEAN CORPUSCULAR HEMOGLOBIN CONC (BEAKER) (test 34.3 GM/DL 32.3-36.5 mtvy=792) RED CELL DISTRIBUTION WIDTH (BEAKER) (test 12.3 % 11.6-14.4 dafk=390) PLATELET COUNT (BEAKER) (test wsgd=948) 122 K/CU MM 150-450 MEAN PLATELET VOLUME (BEAKER) (test usha=990) 9.8 fL 9.4-12.4 NUCLEATED RED BLOOD CELLS (BEAKER) (test 0 /100 WBC 0-0 yiuv=438) NEUTROPHILS RELATIVE PERCENT (BEAKER) (test 70 % ookt=893) LYMPHOCYTES RELATIVE PERCENT (BEAKER) (test 17 % srbp=943) MONOCYTES RELATIVE PERCENT (BEAKER) (test 11 % hhoc=386) EOSINOPHILS RELATIVE PERCENT (BEAKER) (test 1 % uysi=186) BASOPHILS RELATIVE PERCENT (BEAKER) (test 1 % uvlc=151) NEUTROPHILS ABSOLUTE COUNT (BEAKER) (test 2.94 K/ L 1.78-5.38 mpzo=413) LYMPHOCYTES ABSOLUTE COUNT (BEAKER) (test 0.73 K/ L 1.32-3.57 okei=305) MONOCYTES ABSOLUTE COUNT (BEAKER) (test 0.45 K/ L 0.30-0.82 lnjd=002) EOSINOPHILS ABSOLUTE COUNT (BEAKER) (test 0.04 K/ L 0.04-0.54 nuzm=764) BASOPHILS ABSOLUTE COUNT (BEAKER) (test 0.02 K/ L 0.01-0.08 vpun=272) IMMATURE GRANULOCYTES-RELATIVE PERCENT (BEAKER) 1 % 0-1 (test dtqf=8653) POCT-GLUCOSE [id number] 12:15:00 Test Item Value Reference Range Comments POC-GLUCOSE METER (BEAKER) 99 mg/dL 70-110 TESTED AT [address] (test vrkv=7662) [facility] [id number] 06:15:00 Test Item Value Reference Range Comments MAGNESIUM (BEAKER) (test leqv=511) 1.8 mg/dL 1.6-2.6 COMPREHENSIVE METABOLIC [id number] 06:15:00 Test Item Value Reference Range Comments TOTAL PROTEIN (BEAKER) 6.6 gm/dL 6.0-8.3 (test jtvg=468) ALBUMIN (BEAKER) (test 3.6 g/dL 3.5-5.0 ckld=6329) ALKALINE PHOSPHATASE 149 U/L 40-150 (BEAKER) (test xkhb=290) BILIRUBIN TOTAL (BEAKER) 0.8 mg/dL 0.2-1.2 (test dypg=886) SODIUM (BEAKER) (test 135 meq/L 136-145 xgza=018) POTASSIUM (BEAKER) (test 3.6 meq/L 3.5-5.1 wfek=403) CHLORIDE (BEAKER) (test 98 meq/L 98-107 ogxg=655) CO2 (BEAKER) (test 26 meq/L 22-29 wiim=961) BLOOD UREA NITROGEN 8 mg/dL 7-21 (BEAKER) (test cphu=011) CREATININE (BEAKER) (test 0.57 mg/dL 0.57-1.25 mmgn=717) GLUCOSE RANDOM (BEAKER) 100 mg/dL 70-105 (test wqsz=856) CALCIUM (BEAKER) (test 9.5 mg/dL 8.4-10.2 vckp=273) AST (SGOT) (BEAKER) (test 155 U/L 5-34 cslz=691) ALT (SGPT) (BEAKER) (test 151 U/L 6-55 slcv=073) EGFR (BEAKER) (test 166 mL/min/1.73 sq ESTIMATED GFR IS NOT abgb=5029) m ACCURATE CREATININE CLEARANCE IN PREDICTING GLOMERULAR FILTRATION RATE. ESTIMATED GFR IS NOT APPLICABLE FOR DIALYSIS PATIENTS. CBC W/PLT COUNT & AUTO [id number] 05:30:00 Test Item Value Reference Range Comments WHITE BLOOD CELL COUNT (BEAKER) (test xfuc=280) 5.1 K/ L 3.5-10.5 RED BLOOD CELL COUNT (BEAKER) (test bswb=540) 3.81 M/ L 4.63-6.08 HEMOGLOBIN (BEAKER) (test qnnq=619) 13.1 GM/DL 13.7-17.5 HEMATOCRIT (BEAKER) (test eydg=030) 37.6 % 40.1-51.0 MEAN CORPUSCULAR VOLUME (BEAKER) (test kmgd=749) 98.7 fL 79.0-92.2 MEAN CORPUSCULAR HEMOGLOBIN (BEAKER) (test 34.4 pg 25.7-32.2 hrtu=434) MEAN CORPUSCULAR HEMOGLOBIN CONC (BEAKER) (test 34.8 GM/DL 32.3-36.5 dcqz=228) RED CELL DISTRIBUTION WIDTH (BEAKER) (test 11.5 % 11.6-14.4 urlb=451) PLATELET COUNT (BEAKER) (test faii=260) 152 K/CU MM 150-450 MEAN PLATELET VOLUME (BEAKER) (test ghiy=784) 10.2 fL 9.4-12.4 NUCLEATED RED BLOOD CELLS (BEAKER) (test 0 /100 WBC 0-0 rcxm=039) NEUTROPHILS RELATIVE PERCENT (BEAKER) (test 71 % tbmc=221) LYMPHOCYTES RELATIVE PERCENT (BEAKER) (test 14 % tcvl=408) MONOCYTES RELATIVE PERCENT (BEAKER) (test 11 % xlqt=013) EOSINOPHILS RELATIVE PERCENT (BEAKER) (test 2 % iupw=911) BASOPHILS RELATIVE PERCENT (BEAKER) (test 1 % xgqe=342) NEUTROPHILS ABSOLUTE COUNT (BEAKER) (test 3.66 K/ L 1.78-5.38 xatm=123) LYMPHOCYTES ABSOLUTE COUNT (BEAKER) (test 0.71 K/ L 1.32-3.57 opey=520) MONOCYTES ABSOLUTE COUNT (BEAKER) (test 0.58 K/ L 0.30-0.82 sfad=486) EOSINOPHILS ABSOLUTE COUNT (BEAKER) (test 0.10 K/ L 0.04-0.54 wvhl=166) BASOPHILS ABSOLUTE COUNT (BEAKER) (test 0.04 K/ L 0.01-0.08 jbzo=436) IMMATURE GRANULOCYTES-RELATIVE PERCENT (BEAKER) 1 % 0-1 (test gwak=5127) POCT-GLUCOSE [id number] 11:54:00 Test Item Value Reference Range Comments POC-GLUCOSE METER (BEAKER) 83 mg/dL 70-110 TESTED AT [address] (test oyel=8048) [place] [address] [id number] 05:54:00 Test Item Value Reference Range Comments PHOSPHORUS (BEAKER) (test agdu=997) 2.3 mg/dL 2.3-4.7 [id number] 05:54:00 Test Item Value Reference Range Comments MAGNESIUM (BEAKER) (test gtkk=902) 2.0 mg/dL 1.6-2.6 COMPREHENSIVE METABOLIC [id number] 05:54:00 Test Item Value Reference Range Comments TOTAL PROTEIN (BEAKER) 6.0 gm/dL 6.0-8.3 (test xqno=843) ALBUMIN (BEAKER) (test 3.2 g/dL 3.5-5.0 twbt=0173) ALKALINE PHOSPHATASE 134 U/L 40-150 (BEAKER) (test cpbr=283) BILIRUBIN TOTAL (BEAKER) 1.1 mg/dL 0.2-1.2 (test kgfv=144) SODIUM (BEAKER) (test 134 meq/L 136-145 lvoc=339) POTASSIUM (BEAKER) (test 3.6 meq/L 3.5-5.1 fqcq=116) CHLORIDE (BEAKER) (test 100 meq/L 98-107 jxkf=727) CO2 (BEAKER) (test 26 meq/L 22-29 tyih=407) BLOOD UREA NITROGEN 4 mg/dL 7-21 (BEAKER) (test lrjn=836) CREATININE (BEAKER) (test 0.54 mg/dL 0.57-1.25 tdoc=404) GLUCOSE RANDOM (BEAKER) 141 mg/dL 70-105 (test syqn=838) CALCIUM (BEAKER) (test 8.8 mg/dL 8.4-10.2 dwxy=601) AST (SGOT) (BEAKER) (test 183 U/L 5-34 owez=242) ALT (SGPT) (BEAKER) (test 149 U/L 6-55 yowi=426) EGFR (BEAKER) (test 176 mL/min/1.73 sq ESTIMATED GFR IS NOT bjhh=1971) m ACCURATE CREATININE CLEARANCE IN PREDICTING GLOMERULAR FILTRATION RATE. ESTIMATED GFR IS NOT APPLICABLE FOR DIALYSIS PATIENTS. LACTIC ACID, [id number] 05:35:00 Test Item Value Reference Range Comments LACTATE BLOOD VENOUS (2) (BEAKER) (test 1.0 mmol/L 0.5-2.2 cxng=2533) CBC W/PLT COUNT & AUTO [id number] 05:23:00 Test Item Value Reference Range Comments WHITE BLOOD CELL COUNT (BEAKER) (test njli=847) 5.0 K/ L 3.5-10.5 RED BLOOD CELL COUNT (BEAKER) (test fbpk=827) 3.88 M/ L 4.63-6.08 HEMOGLOBIN (BEAKER) (test skks=876) 13.0 GM/DL 13.7-17.5 HEMATOCRIT (BEAKER) (test fjbt=291) 38.5 % 40.1-51.0 MEAN CORPUSCULAR VOLUME (BEAKER) (test bkuy=204) 99.2 fL 79.0-92.2 MEAN CORPUSCULAR HEMOGLOBIN (BEAKER) (test 33.5 pg 25.7-32.2 njfr=912) MEAN CORPUSCULAR HEMOGLOBIN CONC (BEAKER) (test 33.8 GM/DL 32.3-36.5 qahb=425) RED CELL DISTRIBUTION WIDTH (BEAKER) (test 11.6 % 11.6-14.4 idgd=662) PLATELET COUNT (BEAKER) (test quch=525) 113 K/CU MM 150-450 MEAN PLATELET VOLUME (BEAKER) (test xogf=258) 10.7 fL 9.4-12.4 NUCLEATED RED BLOOD CELLS (BEAKER) (test 0 /100 WBC 0-0 blle=623) NEUTROPHILS RELATIVE PERCENT (BEAKER) (test 72 % mhfh=273) LYMPHOCYTES RELATIVE PERCENT (BEAKER) (test 15 % mqwk=198) MONOCYTES RELATIVE PERCENT (BEAKER) (test 10 % sngz=833) EOSINOPHILS RELATIVE PERCENT (BEAKER) (test 2 % hrae=377) BASOPHILS RELATIVE PERCENT (BEAKER) (test 1 % ezhb=397) NEUTROPHILS ABSOLUTE COUNT (BEAKER) (test 3.56 K/ L 1.78-5.38 xxpw=532) LYMPHOCYTES ABSOLUTE COUNT (BEAKER) (test 0.76 K/ L 1.32-3.57 wxxa=967) MONOCYTES ABSOLUTE COUNT (BEAKER) (test 0.49 K/ L 0.30-0.82 lzue=701) EOSINOPHILS ABSOLUTE COUNT (BEAKER) (test 0.10 K/ L 0.04-0.54 psap=899) BASOPHILS ABSOLUTE COUNT (BEAKER) (test 0.04 K/ L 0.01-0.08 gtoj=387) IMMATURE GRANULOCYTES-RELATIVE PERCENT (BEAKER) 1 % 0-1 (test uvus=1894) POCT-GLUCOSE [id number] 18:44:00 Test Item Value Reference Range Comments POC-GLUCOSE METER (BEAKER) 100 mg/dL 70-110 TESTED AT [facility] [address] (test hvve=1470) [facility] [address] [id number] 17:58:00 Test Item Value Reference Range Comments PHOSPHORUS (BEAKER) (test yfvj=074) 2.3 mg/dL 2.3-4.7 [id number] 17:58:00 Test Item Value Reference Range Comments MAGNESIUM (BEAKER) (test wtvo=304) 1.8 mg/dL 1.6-2.6 BASIC METABOLIC [id number] 17:58:00 Test Item Value Reference Range Comments SODIUM (BEAKER) (test 137 meq/L 136-145 plax=536) POTASSIUM (BEAKER) (test 3.6 meq/L 3.5-5.1 lurh=884) CHLORIDE (BEAKER) (test 102 meq/L 98-107 odpc=693) CO2 (BEAKER) (test 26 meq/L 22-29 lqve=155) BLOOD UREA NITROGEN 4 mg/dL 7-21 (BEAKER) (test tqsh=836) CREATININE (BEAKER) (test 0.54 mg/dL 0.57-1.25 pxrk=063) GLUCOSE RANDOM (BEAKER) 123 mg/dL 70-105 (test dpyy=762) CALCIUM (BEAKER) (test 8.7 mg/dL 8.4-10.2 osoe=164) EGFR (BEAKER) (test 177 mL/min/1.73 sq m ESTIMATED GFR IS NOT yyyi=1474) ACCURATE CREATININE CLEARANCE IN PREDICTING GLOMERULAR FILTRATION RATE. ESTIMATED GFR IS NOT APPLICABLE FOR DIALYSIS PATIENTS. [id number] 16:55:00 Test Item Value Reference Range Comments MAGNESIUM (BEAKER) (test 1.6 mg/dL 1.6-2.6 Specimen slightly hemolyzed jzlm=250) [id number] 16:55:00 Test Item Value Reference Range Comments PHOSPHORUS (BEAKER) (test 2.3 mg/dL 2.3-4.7 Specimen slightly hemolyzed mqjc=623) BASIC METABOLIC [id number] 16:55:00 Test Item Value Reference Range Comments SODIUM (BEAKER) (test 138 meq/L 136-145 vpho=281) POTASSIUM (BEAKER) (test 3.7 meq/L 3.5-5.1 Specimen slightly vqmy=482) hemolyzed CHLORIDE (BEAKER) (test 105 meq/L 98-107 kjzv=583) CO2 (BEAKER) (test 23 meq/L 22-29 cqkq=004) BLOOD UREA NITROGEN 4 mg/dL 7-21 (BEAKER) (test cevx=393) CREATININE (BEAKER) (test 0.51 mg/dL 0.57-1.25 Specimen slightly xnyt=858) hemolyzed GLUCOSE RANDOM (BEAKER) 99 mg/dL 70-105 (test ynta=737) CALCIUM (BEAKER) (test 8.0 mg/dL 8.4-10.2 wfsd=018) EGFR (BEAKER) (test 190 mL/min/1.73 sq m ESTIMATED GFR IS NOT fwme=0968) ACCURATE CREATININE CLEARANCE IN PREDICTING GLOMERULAR FILTRATION RATE. ESTIMATED GFR IS NOT APPLICABLE FOR DIALYSIS PATIENTS. POCT-GLUCOSE [id number] 12:41:00 Test Item Value Reference Range Comments POC-GLUCOSE METER (BEAKER) 100 mg/dL 70-110 TESTED AT [facility] [address] (test mrts=4129) [facility] [address] POCT-GLUCOSE [id number] 08:07:00 Test Item Value Reference Range Comments POC-GLUCOSE METER (BEAKER) 99 mg/dL 70-110 TESTED AT [facility] [address] (test pbii=2510) [place] [address] U/S, ABDOMINAL, [id number] 08:05:00Abdomen limited area? Add comment if clarification [...] Verified Date /Time: 09/30/2018 08:05:48 Reading Location: [address] Ultrasound Reading Room [id number] 07:23:00 Test Item Value Reference Range Comments PHOSPHORUS (BEAKER) (test eedy=774) 1.2 mg/dL 2.3-4.7 [id number] 07:11:00 Test Item Value Reference Range Comments MAGNESIUM (BEAKER) (test pyhi=001) 2.3 mg/dL 1.6-2.6 COMPREHENSIVE METABOLIC [id number] 07:11:00 Test Item Value Reference Range Comments TOTAL PROTEIN (BEAKER) 5.8 gm/dL 6.0-8.3 (test khpe=649) ALBUMIN (BEAKER) (test 3.1 g/dL 3.5-5.0 axur=8688) ALKALINE PHOSPHATASE 141 U/L 40-150 (BEAKER) (test yyje=833) BILIRUBIN TOTAL (BEAKER) 1.1 mg/dL 0.2-1.2 (test pyux=754) SODIUM (BEAKER) (test 135 meq/L 136-145 ybgd=851) POTASSIUM (BEAKER) (test 3.7 meq/L 3.5-5.1 tfpp=713) CHLORIDE (BEAKER) (test 104 meq/L 98-107 ahlj=595) CO2 (BEAKER) (test 24 meq/L 22-29 krny=653) BLOOD UREA NITROGEN 5 mg/dL 7-21 (BEAKER) (test inbp=650) CREATININE (BEAKER) (test 0.39 mg/dL 0.57-1.25 iyeh=207) GLUCOSE RANDOM (BEAKER) 114 mg/dL 70-105 (test tcsr=624) CALCIUM (BEAKER) (test 8.3 mg/dL 8.4-10.2 gbot=060) AST (SGOT) (BEAKER) (test 354 U/L 5-34 njnf=252) ALT (SGPT) (BEAKER) (test 188 U/L 6-55 osyi=279) EGFR (BEAKER) (test 258 mL/min/1.73 sq ESTIMATED GFR IS NOT lmkg=3980) m ACCURATE CREATININE CLEARANCE IN PREDICTING GLOMERULAR FILTRATION RATE. ESTIMATED GFR IS NOT APPLICABLE FOR DIALYSIS PATIENTS. LACTIC ACID, [id number] 04:07:00 Test Item Value Reference Range Comments LACTATE BLOOD VENOUS (2) 0.8 mmol/L 0.5-2.2 Specimen slightly hemolyzed (BEAKER) (test bjys=7656) CBC W/PLT COUNT & AUTO [id number] 04:00:00 Test Item Value Reference Range Comments WHITE BLOOD CELL COUNT (BEAKER) (test qvkd=442) 6.1 K/ L 3.5-10.5 RED BLOOD CELL COUNT (BEAKER) (test iaqa=018) 3.87 M/ L 4.63-6.08 HEMOGLOBIN (BEAKER) (test wmmf=874) 13.3 GM/DL 13.7-17.5 HEMATOCRIT (BEAKER) (test hzpd=124) 39.1 % 40.1-51.0 MEAN CORPUSCULAR VOLUME (BEAKER) (test unhk=613) 101.0 fL 79.0-92.2 MEAN CORPUSCULAR HEMOGLOBIN (BEAKER) (test 34.4 pg 25.7-32.2 vshd=338) MEAN CORPUSCULAR HEMOGLOBIN CONC (BEAKER) (test 34.0 GM/DL 32.3-36.5 trkl=635) RED CELL DISTRIBUTION WIDTH (BEAKER) (test 12.1 % 11.6-14.4 jwxj=905) PLATELET COUNT (BEAKER) (test pfzu=202) 105 K/CU MM 150-450 MEAN PLATELET VOLUME (BEAKER) (test tfem=393) 10.4 fL 9.4-12.4 NUCLEATED RED BLOOD CELLS (BEAKER) (test 0 /100 WBC 0-0 selb=358) NEUTROPHILS RELATIVE PERCENT (BEAKER) (test 74 % aomd=224) LYMPHOCYTES RELATIVE PERCENT (BEAKER) (test 14 % vzjq=790) MONOCYTES RELATIVE PERCENT (BEAKER) (test 10 % wwtn=306) EOSINOPHILS RELATIVE PERCENT (BEAKER) (test 1 % mbtw=479) BASOPHILS RELATIVE PERCENT (BEAKER) (test 1 % fcyh=252) NEUTROPHILS ABSOLUTE COUNT (BEAKER) (test 4.52 K/ L 1.78-5.38 mjxj=717) LYMPHOCYTES ABSOLUTE COUNT (BEAKER) (test 0.84 K/ L 1.32-3.57 ozyy=626) MONOCYTES ABSOLUTE COUNT (BEAKER) (test 0.62 K/ L 0.30-0.82 soty=259) EOSINOPHILS ABSOLUTE COUNT (BEAKER) (test 0.06 K/ L 0.04-0.54 zulz=589) BASOPHILS ABSOLUTE COUNT (BEAKER) (test 0.03 K/ L 0.01-0.08 tpzb=059) IMMATURE GRANULOCYTES-RELATIVE PERCENT (BEAKER) 0 % 0-1 (test euou=6567) [id number] 01:32:00 Test Item Value Reference Range Comments PROCALCITONIN (BEAKER) (test sazr=0291) 0.48 ng/mL <0.05 SEPSIS RISK (ng/mL)Low: 0.05-0.50Intermediate: 0.51-2.00High: & gt;=2.01BASIC METABOLIC [id number] 00:58:00 Test Item Value Reference Range Comments SODIUM (BEAKER) (test 135 meq/L 136-145 hphu=250) POTASSIUM (BEAKER) (test 3.4 meq/L 3.5-5.1 auoa=123) CHLORIDE (BEAKER) (test 104 meq/L 98-107 dzrd=713) CO2 (BEAKER) (test 22 meq/L 22-29 lkgh=242) BLOOD UREA NITROGEN 7 mg/dL 7-21 (BEAKER) (test ohsk=366) CREATININE (BEAKER) (test 0.55 mg/dL 0.57-1.25 xmix=359) GLUCOSE RANDOM (BEAKER) 113 mg/dL 70-105 (test bizr=078) CALCIUM (BEAKER) (test 8.4 mg/dL 8.4-10.2 orka=867) EGFR (BEAKER) (test 174 mL/min/1.73 sq m ESTIMATED GFR IS NOT vybx=6445) ACCURATE CREATININE CLEARANCE IN PREDICTING GLOMERULAR FILTRATION RATE. ESTIMATED GFR IS NOT APPLICABLE FOR DIALYSIS PATIENTS. [id number] 00:57:00 Test Item Value Reference Range Comments MAGNESIUM (BEAKER) (test cnxl=936) 1.5 mg/dL 1.6-2.6 LACTIC ACID, [id number] 00:37:00 Test Item Value Reference Range Comments LACTATE BLOOD VENOUS (2) 0.7 mmol/L 0.5-2.2 Specimen moderately hemolyzed (BEAKER) (test rvdo=1298) POCT-GLUCOSE [id number] 00:25:00 Test Item Value Reference Range Comments POC-GLUCOSE METER (BEAKER) 101 mg/dL 70-110 TESTED AT [address] (test csme=2493) [place] [id number] POCT-GLUCOSE [id number] 18:32:00 Test Item Value Reference Range Comments POC-GLUCOSE METER (BEAKER) 76 mg/dL 70-110 TESTED AT [address] (test cmvp=5594) [place] [address] [id number] 15:15:00 Test Item Value Reference Range Comments POTASSIUM (BEAKER) (test nvhc=842) 3.4 meq/L 3.5-5.1 [id number] 15:15:00 Test Item Value Reference Range Comments MAGNESIUM (BEAKER) (test cchp=394) 2.1 mg/dL 1.6-2.6 CT, [id number] 12:38:00FINAL REPORT CT abdomen with and without [...] Date/Time: 09/29/2018 12:38:07 Reading Location : [address] Consult Reading Room POCT-GLUCOSE [id number] 11:49:00 Test Item Value Reference Range Comments POC-GLUCOSE METER (BEAKER) 83 mg/dL 70-110 TESTED AT [facility] [address] (test kmrm=4773) [facility] [address] [id number] 10:49:00 Test Item Value Reference Range Comments TRIGLYCERIDES (BEAKER) (test 71 mg/dL Specimen slightly hemolyzed jidc=960) TRIGLYCERIDE REFERENCE RANGELow Risk <150Borderline Risk 150-199High Risk 200-499Very High Risk>=[id number] 05:09:00 Test Item Value Reference Range Comments LIPASE (BEAKER) (test cidl=317) > U/L 8-78 [id number] 04:35:00 Test Item Value Reference Range Comments MAGNESIUM (BEAKER) (test 1.6 mg/dL 1.6-2.6 Specimen slightly hemolyzed xoul=341) [id number] 04:35:00 Test Item Value Reference Range Comments PHOSPHORUS (BEAKER) (test 3.2 mg/dL 2.3-4.7 Specimen slightly hemolyzed ivxm=097) COMPREHENSIVE METABOLIC [id number] 04:35:00 Test Item Value Reference Range Comments TOTAL PROTEIN (BEAKER) 6.8 gm/dL 6.0-8.3 Specimen slightly (test gede=005) hemolyzed ALBUMIN (BEAKER) (test 3.8 g/dL 3.5-5.0 Specimen slightly zzrj=5481) hemolyzed ALKALINE PHOSPHATASE 130 U/L 40-150 (BEAKER) (test hpna=241) BILIRUBIN TOTAL (BEAKER) 1.7 mg/dL 0.2-1.2 Specimen slightly (test eabe=056) hemolyzed SODIUM (BEAKER) (test 138 meq/L 136-145 wksl=849) POTASSIUM (BEAKER) (test 3.7 meq/L 3.5-5.1 Specimen slightly ionh=656) hemolyzed CHLORIDE (BEAKER) (test 103 meq/L 98-107 miiu=695) CO2 (BEAKER) (test 17 meq/L 22-29 biky=294) BLOOD UREA NITROGEN 9 mg/dL 7-21 (BEAKER) (test ibap=988) CREATININE (BEAKER) (test 0.65 mg/dL 0.57-1.25 Specimen slightly nkdo=873) hemolyzed GLUCOSE RANDOM (BEAKER) 103 mg/dL 70-105 (test znuz=182) CALCIUM (BEAKER) (test 8.7 mg/dL 8.4-10.2 ipfy=679) AST (SGOT) (BEAKER) (test 151 U/L 5-34 Specimen slightly tkxi=756) hemolyzed ALT (SGPT) (BEAKER) (test 143 U/L 6-55 Specimen slightly vigc=224) hemolyzed EGFR (BEAKER) (test 143 mL/min/1.73 sq ESTIMATED GFR IS NOT ugdd=4266) m ACCURATE CREATININE CLEARANCE IN PREDICTING GLOMERULAR FILTRATION RATE. ESTIMATED GFR IS NOT APPLICABLE FOR DIALYSIS PATIENTS. PROTHROMBIN [id number] 04:34:00 Test Item Value Reference Range Comments PROTIME (BEAKER) (test tgbm=325) 14.6 seconds 11.7-14.7 INR (BEAKER) (test ygdq=162) 1.1 <=5.9 RECOMMENDED COUMADIN/WARFARIN INR THERAPY RANGESSTANDARD DOSE: 2.0 - 3.0 Includes: PROPHYLAXIS forvenous thrombosis, systemic embolization; TREATMENT for venous thrombosis and/or pulmonary embolus.HIGH RISK: Target INR is 2.5-3.5 for patients with mechanical heart valves.CBC W/PLT COUNT & AUTO [id number] 04:09:00 Test Item Value Reference Range Comments WHITE BLOOD CELL COUNT (BEAKER) (test fuku=193) 6.2 K/ L 3.5-10.5 RED BLOOD CELL COUNT (BEAKER) (test iqmh=086) 4.33 M/ L 4.63-6.08 HEMOGLOBIN (BEAKER) (test tgin=992) 15.0 GM/DL 13.7-17.5 HEMATOCRIT (BEAKER) (test fuoy=873) 43.2 % 40.1-51.0 MEAN CORPUSCULAR VOLUME (BEAKER) (test rhen=149) 99.8 fL 79.0-92.2 MEAN CORPUSCULAR HEMOGLOBIN (BEAKER) (test 34.6 pg 25.7-32.2 nhei=905) MEAN CORPUSCULAR HEMOGLOBIN CONC (BEAKER) (test 34.7 GM/DL 32.3-36.5 tlxz=396) RED CELL DISTRIBUTION WIDTH (BEAKER) (test 12.4 % 11.6-14.4 dqnj=095) PLATELET COUNT (BEAKER) (test rjeo=149) 160 K/CU MM 150-450 MEAN PLATELET VOLUME (BEAKER) (test bpnq=954) 10.4 fL 9.4-12.4 NUCLEATED RED BLOOD CELLS (BEAKER) (test 0 /100 WBC 0-0 bacf=389) NEUTROPHILS RELATIVE PERCENT (BEAKER) (test 81 % qiws=770) LYMPHOCYTES RELATIVE PERCENT (BEAKER) (test 7 % vppd=950) MONOCYTES RELATIVE PERCENT (BEAKER) (test 10 % mctj=778) EOSINOPHILS RELATIVE PERCENT (BEAKER) (test 0 % gebe=573) BASOPHILS RELATIVE PERCENT (BEAKER) (test 1 % tcfb=649) NEUTROPHILS ABSOLUTE COUNT (BEAKER) (test 5.01 K/ L 1.78-5.38 cxyy=048) LYMPHOCYTES ABSOLUTE COUNT (BEAKER) (test 0.44 K/ L 1.32-3.57 zznv=767) MONOCYTES ABSOLUTE COUNT (BEAKER) (test 0.62 K/ L 0.30-0.82 zkwc=445) EOSINOPHILS ABSOLUTE COUNT (BEAKER) (test 0.01 K/ L 0.04-0.54 mfez=214) BASOPHILS ABSOLUTE COUNT (BEAKER) (test 0.03 K/ L 0.01-0.08 bbzj=904) IMMATURE GRANULOCYTES-RELATIVE PERCENT (BEAKER) 1 % 0-1 (test sjqy=7296)
[2019-10-18] MEDS ORDERED: DIAZEPAM 10 MG/2 ML INJ SYRINGE ONE (17:53)
[2019-10-18] MEDS ORDERED: NA CHLORIDE 0.9% 1,000 ML ONE (17:53)
[2019-10-18 18:02] LABS: Absolute Lymphocytes (CBC) 2.5 K/uL (0.7-4.9); Basophils % 0.5 % (0-1.3); Hematocrit 43.7 % (39.6-49.0); Lymphocytes % 39.5 % (15.3-44.8); MPV 7.9 fL (7.6-11.3); RBC Red Blood Cell Count 5.03 M/uL (4.33-5.43)
[2019-10-18 18:07] LABS: Protime INR 1.11
[2019-10-18 18:10] LABS: AST/SGOT 23 U/L (15-37); BUN Blood Urea Nitrogen 10 mg/dL (7-18); Bicarbonate 27 mmol/L (21-32); Glucose Level 94 mg/dL (74-106); Potassium 3.7 mmol/L (3.5-5.1); Sodium Level 146 mmol/L (136-145)
[2019-10-18 18:11] LABS: ALT/SGPT 27 U/L (12-78); Alkaline Phosphatase 101 U/L (45-117); Bilirubin Direct < 0.1 mg/dL (0-0.2); Bilirubin Total 0.2 mg/dL (0.2-1.0); Lipase 58 U/L (73-393); Protein, Total 7.7 g/dL (6.4-8.2)
--- NOTE | 2019-10-18 18:23 | ER ---
Nurse's Notes [facility] Name: Jonathan Gutierrez Age: 34 yrs Sex: Male : 1985 Arrival Date: 10/18/2019 Time: 17:05 Bed 20 Private MD: Diagnosis: Unspecified abdominal pain;Alcohol abuse with intoxication;Fall on same level, unspecified;Superficial injury of head Presentation: 10/17 17:15 Chief complaint: Patient states: abd pain X 3-4 days, hx of pancreatitis, no vomiting, iw has been drinking heavily today, drank 1/2 bottle vodka. Coronavirus screen: Patient denies fever greater than 100.4F, cough, shortness of breath, or difficulty breathing. Proceed with normal triage process. Ebola Screen: Patient negative for fever greater than or equal to 101.5 degrees Fahrenheit, and additional compatible Ebola Virus Disease symptoms Patient denies exposure to infectious person. Patient denies travel to an Ebola-affected area in the 21 days before illness onset. No symptoms or risks identified at this time. Initial Sepsis Screen: Does the patient meet any 2 criteria? No. Patient's initial sepsis screen is negative. Does the patient have a suspected source of infection? No. Patient's initial sepsis screen is negative. Risk Assessment: Do you want to hurt yourself or someone else? Patient reports no desire to harm self or others. 17:15 Method Of Arrival: Wheelchair 17:15 Acuity: NEO 3 iw Historical: - Allergies: 17:35 No Known Allergies; iw - PMHx: 17:35 ADD/ADHD; etoh abuse; Hypertension; liver "spot"; Pancreatitis; iw - PSHx: 17:35 None; iw - Social history:: Smoking status: Patient reports the use of cigarette tobacco products, smokes one-half pack cigarettes per day. Screenin:35 Abuse screen: Denies threats or abuse. Nutritional screening: No deficits noted. em Tuberculosis screening: No symptoms or risk factors identified. Fall Risk None identified. Assessment: 17:40 General: Appears in no apparent distress. uncomfortable, Behavior is calm, cooperative, em appropriate for age, Denies fever. Pain: Complains of pain in left upper quadrant Pain currently is 9 out of 10 on a pain scale. Pain began 2-3 days ago. Neuro: Level of Consciousness is awake, alert, obeys commands, Oriented to person, place, time, situation, Appropriate for age. Cardiovascular: Capillary refill < 3 seconds Patient's skin is warm and dry. Respiratory: Airway is patent Respiratory effort is even, unlabored, Respiratory pattern is regular, symmetrical. GI: Abdomen is flat, Bowel sounds present X 4 quads. Abd is soft X 4 quads Abdomen is tender to palpation in right upper quadrant and left upper quadrant Reports bloody stool, nausea, vomiting. Derm: Skin is intact, is healthy with good turgor, Skin is pink, warm \\T\\ dry. Musculoskeletal: Capillary refill < 3 seconds, Range of motion: intact in all extremities. 18:40 Reassessment: Patient appears in no apparent distress at this time. Patient and/or em family updated on plan of care and expected duration. Pain level reassessed. Patient is alert, oriented x 3, equal unlabored respirations, skin warm/dry/pink. Vital Signs: 17:15 BP 136 / 90; Pulse 101; Resp 16 S; Temp 97.8; Pulse Ox 98% on R/A; Weight 68.04 kg; iw Height 5 ft. 11 in. (180.34 cm); Pain 9/10; 18:07 BP 128 / 97; Pulse 80; Resp 18; Pulse Ox 95% on R/A; em 17:15 Body Mass Index 20.92 (68.04 kg, 180.34 cm) iw ED Course: 17:05 Patient arrived in ED. ag5 17:13 [facility] Vel[facility] F[facility]-C [facility]. snw 17:13 Trenton Lubin MD is Attending Physician. snw 17:23 Yobany Nobles, AMALIA is Primary Nurse. em 17:34 Triage completed. iw 17:35 Patient has correct armband on for positive identification. Bed in low position. Call em light in reach. Pulse ox on. NIBP on. 17:36 Arm band placed on. iw 17:45 Initial lab(s) drawn, by me, sent to lab. Inserted saline lock: 20 gauge in left em antecubital area, using aseptic technique. Blood collected. 19:10 No provider procedures requiring assistance completed. IV discontinued, intact, em bleeding controlled, No redness/swelling at site. Pressure dressing applied. Administered Medications: 17:45 Drug: NS 0.9% 1000 ml Route: IV; Rate: 1 bolus; Site: left antecubital; em 19:14 Follow up: IV Status: Completed infusion; IV Intake: 1000ml em 17:57 Not Given (Patient Refused; "wants pain medication not anxitey medication"): Valium 2 em mg IVP once Intake: 19:14 IV: 1000ml; Total: 1000ml. em Outcome: 18:23 Discharge ordered by MD. webb 19:10 Discharged to home ambulatory. em 19:10 Condition: stable 19:10 Discharge instructions given to pt discarded discharge paperwork in trash can and did not sign discharge forms 19:16 Patient left the ED. em Signatures: Danay Veloz, PANTS CUTTER-C PANTS CUTTER-Janellew Yobany Nobles RN Alma Delia Armstrong RN RN Emerson Tobias ag5
--- NOTE | 2019-10-18 18:23 | EDPHYS ---
Physician Documentation [facility] Name: Jonathan Gutierrez Age: 34 yrs Sex: Male : 1985 Arrival Date: 10/18/2019 Time: 17:05 Bed 20 Private MD: ED Physician Trenton Lubin HPI: 10/17 17:55 This 34 yrs old Male presents to ER via Wheelchair with complaints of snw Abdominal Pain, Fall Injury. 17:55 The patient presents with abdominal pain that is diffuse. Onset: The symptoms/episode snw began/occurred suddenly, and became persistent. The symptoms do not radiate. Associated signs and symptoms: none. The symptoms are described as sharp, stabbing. Severity of pain: At its worst the pain was moderate severe. The patient has experienced similar episodes in the past, chronically, with the last episode occurring 2 week(s) ago. The patient has been recently seen by a physician: The patient has been recently been admitted at [facility], for similar complaints, has hx of ETOH induced pancreatitis, + ETOH today. Historical: - Allergies: 17:35 No Known Allergies; iw - PMHx: 17:35 ADD/ADHD; etoh abuse; Hypertension; liver "spot"; Pancreatitis; iw - PSHx: 17:35 None; iw - Social history:: Smoking status: Patient reports the use of cigarette tobacco products, smokes one-half pack cigarettes per day. ROS: 17:53 Constitutional: Negative for fever, chills, and weight loss, Eyes: Negative for injury, snw pain, redness, and discharge, ENT: Negative for injury, pain, and discharge, Neck: Negative for injury, pain, and swelling, Cardiovascular: Negative for chest pain, palpitations, and edema, Respiratory: Negative for shortness of breath, cough, wheezing, and pleuritic chest pain, Abdomen/GI: Positive for abdominal pain, denies nausea, vomiting, diarrhea, and constipation, Back: Negative for injury and pain, : Negative for injury, bleeding, discharge, and swelling, MS/Extremity: Negative for injury and deformity, Skin: Negative for injury, rash, and discoloration, Psych: Negative for depression, anxiety, suicide ideation, homicidal ideation, and hallucinations. 17:53 Neuro: Positive for Fell "from pain" and struck right upper, outer orbit. Exam: 17:52 Constitutional: This is a well developed, well nourished patient who is awake, alert, snw and in no acute distress. Head/Face: Normocephalic, atraumatic. Eyes: Pupils equal round and reactive to light, extra-ocular motions intact. Lids and lashes normal. Conjunctiva and sclera are non-icteric and not injected. Cornea within normal limits. Periorbital areas with no swelling, redness, or edema. ENT: Nares patent. No nasal discharge, no septal abnormalities noted. Tympanic membranes are normal and external auditory canals are clear. Oropharynx with no redness, swelling, or masses, exudates, or evidence of obstruction, uvula midline. Mucous membranes moist. Neck: Trachea midline, no thyromegaly or masses palpated, and no cervical lymphadenopathy. Supple, full range of motion without nuchal rigidity, or vertebral point tenderness. No Meningismus. Chest/axilla: Normal chest wall appearance and motion. Nontender with no deformity. No lesions are appreciated. Cardiovascular: Regular rate and rhythm with a normal S1 and S2. No gallops, murmurs, or rubs. Normal PMI, no JVD. No pulse deficits. Respiratory: Lungs have equal breath sounds bilaterally, clear to auscultation and percussion. No rales, rhonchi or wheezes noted. No increased work of breathing, no retractions or nasal flaring. Back: No spinal tenderness. No costovertebral tenderness. Full range of motion. MS/ Extremity: Pulses equal, no cyanosis. Neurovascular intact. Full, normal range of motion. Neuro: Awake and alert, GCS 15, oriented to person, place, time, and situation. Cranial nerves II-XII grossly intact. Motor strength 5/5 in all extremities. Sensory grossly intact. Cerebellar exam normal. Normal gait. Psych: Awake, alert, with orientation to person, place and time. Behavior, mood, and affect are within normal limits. 17:52 Abdomen/GI: Soft, non-tender, with normal bowel sounds. No distension or tympany. No guarding or rebound. No evidence of tenderness throughout. 17:52 Skin: Appearance: normal except for affected area, injury, abrasion(s), small abrasion noted, contusion(s), that are deep, of the right eye. Vital Signs: 17:15 BP 136 / 90; Pulse 101; Resp 16 S; Temp 97.8; Pulse Ox 98% on R/A; Weight 68.04 kg; iw Height 5 ft. 11 in. (180.34 cm); Pain 9/10; 18:07 BP 128 / 97; Pulse 80; Resp 18; Pulse Ox 95% on R/A; em 17:15 Body Mass Index 20.92 (68.04 kg, 180.34 cm) iw MDM: 17:13 Patient medically screened. snw 18:28 Data reviewed: vital signs, nurses notes. Data interpreted: Pulse oximetry: on room air snw is 95 %. Interpretation: normal. Counseling: I had a detailed discussion with the patient and/or guardian regarding: the historical points, exam findings, and any diagnostic results supporting the discharge/admit diagnosis, the presence of at least one elevated blood pressure reading (>120/80) during this emergency department visit, lab results, the need for outpatient follow up, to return to the emergency department if symptoms worsen or persist or if there are any questions or concerns that arise at home. Special discussion: Based on the patient's Hx, exam, and Dx evaluation, there is no indication for emergent surgery or inpatient Tx. It is understood by the patient/guardian that if the Sx's persist or worsen they need to return immediately for re-evaluation. Based on the patient's history, exam and DX evaluation, there is no indication for emergent intervention or inpatient TX. It is understood by the patient/guardian that if the SXs persist or worsen they need to return immediately for re-evaluation. Based on the history and exam findings, there is no indication for further emergent testing or inpatient evaluation. I discussed with the patient/guardian the need to see the tube pusher for further evaluation of the symptoms. I discussed with the patient/guardian the need to see the primary care provider for further evaluation of the symptoms. 10/17 17:19 Order name: Basic Metabolic Panel; Complete Time: 18:21 snw 10/17 17:19 Order name: CBC with Diff; Complete Time: 18:06 snw 10/17 17:19 Order name: Hepatic Function; Complete Time: 18:21 snw 10/17 17:19 Order name: Lipase; Complete Time: 18:21 snw 10/17 17:19 Order name: ETOH Level snw 10/17 17:45 Order name: Protime (+inr); Complete Time: 18:08 em 10/17 17:19 Order name: Labs collected and sent; Complete Time: 17:49 w 10/17 17:45 Order name: Ptt, Activated; Complete Time: 18:08 em Administered Medications: 17:45 Drug: NS 0.9% 1000 ml Route: IV; Rate: 1 bolus; Site: left antecubital; em 19:14 Follow up: IV Status: Completed infusion; IV Intake: 1000ml em 17:57 Not Given (Patient Refused; "wants pain medication not anxitey medication"): Valium 2 em mg IVP once Disposition: 10/18 08:13 Co-signature as Attending Physician, Trenton Lubin MD. rn Disposition: 10/18/19 18:23 Discharged to Home. Impression: Unspecified abdominal pain, Alcohol abuse with intoxication, Fall on same level, unspecified, Superficial injury of head. - Condition is Stable. - Discharge Instructions: Abdominal Pain, Adult, Alcohol Intoxication, Head Injury, Adult, Fall Prevention in the Home, Hypertension, Alcohol Abuse and Nutrition. - Prescriptions for Bentyl 20 mg Oral Tablet - take 1 tablet by ORAL route every 6 hours As needed; 20 tablet. - Medication Reconciliation Form, Thank You Letter, Antibiotic Education, Prescription Opioid Use form. - Follow up: Emergency Department; When: As needed; Reason: Worsening of condition. Follow up: Private Physician; When: 2 - 3 days; Reason: Recheck today's complaints, Continuance of care, Re-evaluation by your physician. Signatures: Dispatcher [employer] EDNY Danay Veloz, AMANDA-C [employer] Yobany Nobles, AMALIA RN em Alma Delia Ruff RN RN iw Nieto, Roman, MD MD rn staff: (The following items were deleted from the chart) 10/17 19:16 18:23 10/18/2019 18:23 Discharged to Home. Impression: Unspecified abdominal pain; em Alcohol abuse with intoxication; Fall on same level, unspecified; Superficial injury of head. Condition is Stable. Forms are Medication Reconciliation Form, Thank You Letter, Antibiotic Education, Prescription Opioid Use. Follow up: Emergency Department; When: As needed; Reason: Worsening of condition. Follow up: Private Physician; When: 2 - 3 days; Reason: Recheck today's complaints, Continuance of care, Re-evaluation by your physician. snw
[2019-10-18 19:23] VITALS: TEMP 97.8
[2019-10-18 19:24] VITALS: BP 128/97; O2SAT 95
== END 2019-10-18 19:16 | disposition home or self-care (01) ==
LOC: ER 17:04
DX: S00.90XA Unspecified superficial injury of unspecified part of head, initial encounter (principal); R10.9 Unspecified abdominal pain; W18.30XA Fall on same level, unspecified, initial encounter; Y93.89 Activity, other specified; Y92.9 Unspecified place or not applicable; F10.129 Alcohol abuse with intoxication, unspecified; F17.210 Nicotine dependence, cigarettes, uncomplicated
CPT/HCPCS: 36415; 80048; 80076; 80320; 83690; 85025; 85610; 85730; 96360; 99284; J3360; J7030

== ENCOUNTER 2019-10-21 00:04 | Emergency (ER) | payer SELFPAY | END 2019-10-21 00:25 | disposition left against medical advice (07) | LOC: ER 00:04 | DX: F10.10 Alcohol abuse, uncomplicated (principal); Z13.811 Encounter for screening for lower gastrointestinal disorder; I10 Essential (primary) hypertension; F17.210 Nicotine dependence, cigarettes, uncomplicated | CPT/HCPCS: 99283 ==

== ENCOUNTER 2019-10-28 19:18 | Emergency (ER) | payer SELFPAY ==
--- OUTSIDE RECORDS SUMMARY | 2019-10-28 19:28 | XMS REPORT ---
:1985 Author Organization [facility] t Address [address] [place] [address] Care Team Providers Name Role Phone Duglas HOWE Unavailable Unavailable WAQASJOJO, DAVID Unavailable Unavailable YAÑEZ, SYBIL Unavailable Unavailable GADICHGUERRERO, MURALINTAMARA Unavailable Unavailable BARTTANI ROCÍO Unavailable Unavailable Genia NELSON Unavailable Unavailable OMRANIAN Unavailable Unavailable Problems This patient has no known problems. Allergies, Adverse Reactions, Alerts This patient has no known allergies or adverse reactions. Medications This patient has no known medications. Results Test Description Test Time Test Comments Text Results Atomic Results Result Comments BASIC METABOLIC PANEL 2019-10-24 05:19:00 Test Item Value Reference Range Comments SODIUM (BEAKER) (test code 141 meq/L 136-145 = 381) POTASSIUM (BEAKER) (test 3.8 meq/L 3.5-5.1 code = 379) CHLORIDE (BEAKER) (test 110 meq/L 98-107 code = 382) CO2 (BEAKER) (test code = 24 meq/L 22-29 355) BLOOD UREA NITROGEN 8 mg/dL 7-21 (BEAKER) (test code = 354) CREATININE (BEAKER) (test 0.70 mg/dL 0.57-1.25 code = 358) GLUCOSE RANDOM (BEAKER) 92 mg/dL 70-105 (test code = 652) CALCIUM (BEAKER) (test code 8.3 mg/dL 8.4-10.2 = 697) EGFR (BEAKER) (test code = 130 mL/min/1.73 sq m ESTIMATED GFR IS NOT 1092) ACCURATE CREA TININE CLEARANCE IN PRE DICTING GLOMERULAR FILTR ATION RATE. ESTIMATED GFR IS NOT APPLICABLE FOR D IALYSIS PATIENTS. Primary Special Educator ID - JEFFRY WCBC W/PLT COUNT & AUTO [id number] 05:08:00 Test Item Value Reference Range Comments WHITE BLOOD CELL COUNT (BEAKER) (test code = 3.3 K/ L 3.5 -10.5 775) RED BLOOD CELL COUNT (BEAKER) (test code = 761) 3.92 M/ L 4.63-6.08 HEMOGLOBIN (BEAKER) (test code = 410) 11.3 GM/DL 13.7-17.5 HEMATOCRIT (BEAKER) (test code = 411) 32.9 % 40.1-51.0 MEAN CORPUSCULAR VOLUME (BEAKER) (test code = 83.9 fL 79 .0-92.2 753) MEAN CORPUSCULAR HEMOGLOBIN (BEAKER) (test code 28.8 pg 25.7-32.2 = 751) MEAN CORPUSCULAR HEMOGLOBIN CONC (BEAKER) (test 34.3 GM/DL 32.3-36.5 code = 752) RED CELL DISTRIBUTION WIDTH (BEAKER) (test code 14.5 % 11.6-14.4 = 412) PLATELET COUNT (BEAKER) (test code = 756) 106 K/CU MM 150-45 0 MEAN PLATELET VOLUME (BEAKER) (test code = 754) 9.8 fL 9.4-12.4 NUCLEATED RED BLOOD CELLS (BEAKER) (test code = 0 /100 WBC 0-0 413) NEUTROPHILS RELATIVE PERCENT (BEAKER) (test code 51 % = 429) LYMPHOCYTES RELATIVE PERCENT (BEAKER) (test code 38 % = 430) MONOCYTES RELATIVE PERCENT (BEAKER) (test code = 8 % 431) EOSINOPHILS RELATIVE PERCENT (BEAKER) (test code 2 % = 432) BASOPHILS RELATIVE PERCENT (BEAKER) (test code = 1 % 437) NEUTROPHILS ABSOLUTE COUNT (BEAKER) (test code = 1.70 K/ L 1.78-5.38 670) LYMPHOCYTES ABSOLUTE COUNT (BEAKER) (test code = 1.26 K/ L 1.32-3.57 414) MONOCYTES ABSOLUTE COUNT (BEAKER) (test code = 0.27 K/ L 0 .30-0.82 415) EOSINOPHILS ABSOLUTE COUNT (BEAKER) (test code = 0.07 K/ L 0.04-0.54 416) BASOPHILS ABSOLUTE COUNT (BEAKER) (test code = 0.02 K/ L 0 .01-0.08 417) IMMATURE GRANULOCYTES-RELATIVE PERCENT (BEAKER) 0 % 0-1 (test code = 2801) BASIC METABOLIC [id number] 04:26:00 Test Item Value Reference Range Comments SODIUM (BEAKER) (test 142 meq/L 136-145 code = 381) POTASSIUM (BEAKER) (test 3.7 meq/L 3.5-5.1 code = 379) CHLORIDE (BEAKER) (test 106 meq/L 98-107 code = 382) CO2 (BEAKER) (test code = 27 meq/L 22-29 355) BLOOD UREA NITROGEN 5 mg/dL 7-21 (BEAKER) (test code = 354) CREATININE (BEAKER) (test 0.71 mg/dL 0.57-1.25 code = 358) GLUCOSE RANDOM (BEAKER) 89 mg/dL 70-105 (test code = 652) CALCIUM (BEAKER) (test 9.0 mg/dL 8.4-10.2 code = 697) EGFR (BEAKER) (test code 128 mL/min/1.73 sq m ES TIMATED GFR IS NOT = 1092) ACCURATE CREA TININE CLEARANCE IN PRE DICTING GLOMERULAR FILTR ATION RATE. ESTIMATED GFR IS NOT APPLICABLE F OR DIALYSIS PATIENT S. Primary Special Educator ID - PIAYA LCBC W/PLT COUNT & AUTO [id number] 04:09:00 Test Item Value Reference Range Comments WHITE BLOOD CELL COUNT (BEAKER) (test code = 3.7 K/ L 3.5 -10.5 775) RED BLOOD CELL COUNT (BEAKER) (test code = 761) 4.27 M/ L 4.63-6.08 HEMOGLOBIN (BEAKER) (test code = 410) 12.8 GM/DL 13.7-17.5 HEMATOCRIT (BEAKER) (test code = 411) 36.1 % 40.1-51.0 MEAN CORPUSCULAR VOLUME (BEAKER) (test code = 84.5 fL 79 .0-92.2 753) MEAN CORPUSCULAR HEMOGLOBIN (BEAKER) (test code 30.0 pg 25.7-32.2 = 751) MEAN CORPUSCULAR HEMOGLOBIN CONC (BEAKER) (test 35.5 GM/DL 32.3-36.5 code = 752) RED CELL DISTRIBUTION WIDTH (BEAKER) (test code 14.6 % 11.6-14.4 = 412) PLATELET COUNT (BEAKER) (test code = 756) 113 K/CU MM 150-45 0 MEAN PLATELET VOLUME (BEAKER) (test code = 754) 9.6 fL 9.4-12.4 NUCLEATED RED BLOOD CELLS (BEAKER) (test code = 0 /100 WBC 0-0 413) NEUTROPHILS RELATIVE PERCENT (BEAKER) (test code 52 % = 429) LYMPHOCYTES RELATIVE PERCENT (BEAKER) (test code 39 % = 430) MONOCYTES RELATIVE PERCENT (BEAKER) (test code = 7 % 431) EOSINOPHILS RELATIVE PERCENT (BEAKER) (test code 2 % = 432) BASOPHILS RELATIVE PERCENT (BEAKER) (test code = 1 % 437) NEUTROPHILS ABSOLUTE COUNT (BEAKER) (test code = 1.91 K/ L 1.78-5.38 670) LYMPHOCYTES ABSOLUTE COUNT (BEAKER) (test code = 1.43 K/ L 1.32-3.57 414) MONOCYTES ABSOLUTE COUNT (BEAKER) (test code = 0.26 K/ L 0 .30-0.82 415) EOSINOPHILS ABSOLUTE COUNT (BEAKER) (test code = 0.07 K/ L 0.04-0.54 416) BASOPHILS ABSOLUTE COUNT (BEAKER) (test code = 0.03 K/ L 0 .01-0.08 417) IMMATURE GRANULOCYTES-RELATIVE PERCENT (BEAKER) 0 % 0-1 (test code = 2801) BASIC METABOLIC [id number] 04:12:00 Test Item Value Reference Range Comments SODIUM (BEAKER) (test 139 meq/L 136-145 code = 381) POTASSIUM (BEAKER) (test 3.9 meq/L 3.5-5.1 Specime n slightly code = 379) hemolyzed CHLORIDE (BEAKER) (test 107 meq/L 98-107 code = 382) CO2 (BEAKER) (test code = 27 meq/L 22-29 355) BLOOD UREA NITROGEN 10 mg/dL 7-21 (BEAKER) (test code = 354) CREATININE (BEAKER) (test 0.67 mg/dL 0.57-1.25 Specim en slightly code = 358) hemolyzed GLUCOSE RANDOM (BEAKER) 85 mg/dL 70-105 (test code = 652) CALCIUM (BEAKER) (test 8.3 mg/dL 8.4-10.2 code = 697) EGFR (BEAKER) (test code 137 mL/min/1.73 sq m ES TIMATED GFR IS NOT = 1092) ACCURATE CREA TININE CLEARANCE IN PRE DICTING GLOMERULAR FILTR ATION RATE. ESTIMATED GFR IS NOT APPLICABLE F OR DIALYSIS PATIENT S. Primary Special Educator ID - ANA MCBC W/PLT COUNT & AUTO [id number] 04:04:00 Test Item Value Reference Range Comments WHITE BLOOD CELL COUNT (BEAKER) (test code = 3.7 K/ L 3.5 -10.5 775) RED BLOOD CELL COUNT (BEAKER) (test code = 761) 4.01 M/ L 4.63-6.08 HEMOGLOBIN (BEAKER) (test code = 410) 11.4 GM/DL 13.7-17.5 HEMATOCRIT (BEAKER) (test code = 411) 34.0 % 40.1-51.0 MEAN CORPUSCULAR VOLUME (BEAKER) (test code = 84.8 fL 79 .0-92.2 753) MEAN CORPUSCULAR HEMOGLOBIN (BEAKER) (test code 28.4 pg 25.7-32.2 = 751) MEAN CORPUSCULAR HEMOGLOBIN CONC (BEAKER) (test 33.5 GM/DL 32.3-36.5 code = 752) RED CELL DISTRIBUTION WIDTH (BEAKER) (test code 14.3 % 11.6-14.4 = 412) PLATELET COUNT (BEAKER) (test code = 756) 111 K/CU MM 150-45 0 MEAN PLATELET VOLUME (BEAKER) (test code = 754) 9.6 fL 9.4-12.4 NUCLEATED RED BLOOD CELLS (BEAKER) (test code = 0 /100 WBC 0-0 413) NEUTROPHILS RELATIVE PERCENT (BEAKER) (test code 45 % = 429) LYMPHOCYTES RELATIVE PERCENT (BEAKER) (test code 44 % = 430) MONOCYTES RELATIVE PERCENT (BEAKER) (test code = 8 % 431) EOSINOPHILS RELATIVE PERCENT (BEAKER) (test code 2 % = 432) BASOPHILS RELATIVE PERCENT (BEAKER) (test code = 1 % 437) NEUTROPHILS ABSOLUTE COUNT (BEAKER) (test code = 1.64 K/ L 1.78-5.38 670) LYMPHOCYTES ABSOLUTE COUNT (BEAKER) (test code = 1.61 K/ L 1.32-3.57 414) MONOCYTES ABSOLUTE COUNT (BEAKER) (test code = 0.30 K/ L 0 .30-0.82 415) EOSINOPHILS ABSOLUTE COUNT (BEAKER) (test code = 0.06 K/ L 0.04-0.54 416) BASOPHILS ABSOLUTE COUNT (BEAKER) (test code = 0.03 K/ L 0 .01-0.08 417) IMMATURE GRANULOCYTES-RELATIVE PERCENT (BEAKER) 0 % 0-1 (test code = 2801) POCT-GLUCOSE [id number] 21:02:00 Test Item Value Reference Range Comments POC-GLUCOSE METER (BEAKER) 109 mg/dL 70-110 : PRANAV IRAIS AT [facility] [address] (test code = 1538) [facility], [address]: Primary Special Educator/Technic renee ID = [id number] for MARY ELLEN FITZGERALD RAPID DRUG SCREEN, [id number] 18:44:00 Test Item Value Reference Range Comments BARBITURATE URINE (BEAKER) (test code = 725) Negative Neg ative BENZODIAZEPINE SCREEN URINE (BEAKER) (test code = Negative Negative 726) COCAINE (METAB.) SCREEN (BEAKER) (test code = 1164) Negative Negative METHADONE SCREEN (BEAKER) (test code = 1436) Negative Neg ative OPIATE SCREEN URINE (BEAKER) (test code = 734) Negative N egative CANNABINOID SCREEN URINE (BEAKER) (test code = 727) Negative Negative AMPH/METHAMPH SCREEN (BEAKER) (test code = 1438) Negative Negative PHENCYCLIDINE SCREEN URINE (BEAKER) (test code = Negative Negative 608) PH UA (BEAKER) (test code = 467) 6.0 5.0-8.0 DRUG CUTOFF CONC.Cocaine 300 ng/mL Cannabinoid 50 ng/mLBenzodiazepine 200 ng/mLBarbiturate 200 ng/mLPhencyclidine 25 ng/mLOpiate 300 ng/mLMethadone 300 ng/mLAmphetamine/ 1000 ng/mL MethamphetamineThis assay provides an unconfirmed qualitative test result for the clinical management of patients in emergency situations. Chain of custody not maintained. Some ynpt-eym-wtbnvop medications, as well as adulterants, may cause inaccurate results. Clinical correlation should be applied. A more comprehensivedrug screen or confirmation of a detected drug may be performed upon request.Primary Special Educator ID - BSCT, ABDOMEN 2019-10-21 16:19:00FINAL REPORT ABDOMINAL AND PELVIS CT DATED 10/21/2019 COMPARISON: September 29, 2018 CLINICAL INFORMATION: Abdominal pain, acute, nonlocalizedepigastric abd pain, hx pancreatitis TECHNIQUE: Axial images of the abdomen and pelvis were obtained from diaphragm to the pubic symphysis wi th intravenous contrast. This exam was performed according to our departmental dose-optimization program, which includes automated exposure control, adjustment of the mA and/or kV according to patientsize and/or use of interactive reconstruction technique. COMMENT: Liver and spleen are enlarged. Liver measures 18 cm in the right midclavicular line. Spleen measures 13.3 x 5.6 x 8.7 cm. No focal lesion is seen in the liver or the spleen. The splenic and portal veins are patent. Main portal vein measures 1.3 cm. Multiple collateral veins are seen in the mesentery, omentum and splenic hilum. The distal superior mesenteric vein is not well seen. Gallbladder is contracted. No gallstone or biliary dilatation is noted. Pancreas and adrenals are unremarkable. Both kidneys are normal in size and functioning. No hydronephrosis, hydroureter, urolithiasis is seen. The small and large bowel are suboptimally evaluated secondary to lack of GI contrast. No small or large bowel dilatation is seen. Appendix is not visualized. Prostate is normal in size. The urinary bladder is somewhat distended. No mass, adenopathy or ascites is present. IMPRESSION: 1. 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 Hepatosplenomegaly.3. No CT evidence of pancreatitis. Signed: Carrington Garcia MDReport Verified Date/Time: 10/21/2019 16:19:36 Reading Location: [address] Body ReadingRoom URINALYSIS W/ REFLEX URINE [id number] 14:45:00 Test Item Value Reference Range Comments COLOR (BEAKER) (test code = 470) Colorless CLARITY (BEAKER) (test code = 469) Clear SPECIFIC GRAVITY UA (BEAKER) (test code = 468) 1.008 1 .001-1.035 PH UA (BEAKER) (test code = 467) 6.0 5.0-8.0 PROTEIN UA (BEAKER) (test code = 464) Negative Negative GLUCOSE UA (BEAKER) (test code = 365) Negative Negative KETONES UA (BEAKER) (test code = 371) Negative Negative BILIRUBIN UA (BEAKER) (test code = 462) Negative Negative BLOOD UA (BEAKER) (test code = 461) Negative Negative NITRITE UA (BEAKER) (test code = 465) Negative Negative LEUKOCYTE ESTERASE UA (BEAKER) (test code = 466) Negative Negative UROBILINOGEN UA (BEAKER) (test code = 463) 0.2 mg/dL 0.2-1 .0 RBC UA (BEAKER) (test code = 519) 0 /HPF WBC UA (BEAKER) (test code = 520) 1 /HPF SQUAMOUS EPITHELIAL (BEAKER) (test code = 516) < /HPF SOURCE(BEAKER) (test code = 2795) Primary Special Educator ID - [auto]Primary Special Educator ID - [id number] 14:31:00 Test Item Value Reference Range Comments LIPASE (BEAKER) (test code = 749) 20 U/L 8-78 Primary Special Educator ID - BSBASIC METABOLIC [id number] 14:31:00 Test Item Value Reference Range Comments SODIUM (BEAKER) (test 141 meq/L 136-145 code = 381) POTASSIUM (BEAKER) (test 3.9 meq/L 3.5-5.1 code = 379) CHLORIDE (BEAKER) (test 107 meq/L 98-107 code = 382) CO2 (BEAKER) (test code = 22 meq/L 22-29 355) BLOOD UREA NITROGEN 16 mg/dL 7-21 (BEAKER) (test code = 354) CREATININE (BEAKER) (test 0.74 mg/dL 0.57-1.25 code = 358) GLUCOSE RANDOM (BEAKER) 100 mg/dL 70-105 (test code = 652) CALCIUM (BEAKER) (test 9.2 mg/dL 8.4-10.2 code = 697) EGFR (BEAKER) (test code 122 mL/min/1.73 sq m ES TIMATED GFR IS NOT = 1092) ACCURATE CREA TININE CLEARANCE IN PRE DICTING GLOMERULAR FILTR ATION RATE. ESTIMATED GFR IS NOT APPLICABLE F OR DIALYSIS PATIENT S. Primary Special Educator ID - BSHEPATIC FUNCTION [id number] 14:31:00 Test Item Value Reference Range Comments TOTAL PROTEIN (BEAKER) (test code = 770) 8.1 gm/dL 6.0-8.3 ALBUMIN (BEAKER) (test code = 1145) 4.9 g/dL 3.5-5.0 BILIRUBIN TOTAL (BEAKER) (test code = 377) 0.4 mg/dL 0.2-1 .2 BILIRUBIN DIRECT (BEAKER) (test code = 706) 0.2 mg/dL 0.1- 0.5 ALKALINE PHOSPHATASE (BEAKER) (test code = 346) 101 U/L 40-150 AST (SGOT) (BEAKER) (test code = 353) 24 U/L 5-34 ALT (SGPT) (BEAKER) (test code = 347) 21 U/L 6-55 Primary Special Educator ID - BSLACTIC ACID, [id number] 14:24:00 Test Item Value Reference Range Comments LACTATE BLOOD VENOUS (2) (BEAKER) (test code = 2.36 mmol/L 0 .50-2.20 2872) Primary Special Educator ID - BSCBC W/PLT COUNT & AUTO [id number] 14:15:00 Test Item Value Reference Range Comments WHITE BLOOD CELL COUNT (BEAKER) (test code = 6.1 K/ L 3.5 -10.5 775) RED BLOOD CELL COUNT (BEAKER) (test code = 761) 4.80 M/ L 4.63-6.08 HEMOGLOBIN (BEAKER) (test code = 410) 14.3 GM/DL 13.7-17.5 HEMATOCRIT (BEAKER) (test code = 411) 41.3 % 40.1-51.0 MEAN CORPUSCULAR VOLUME (BEAKER) (test code = 86.0 fL 79 .0-92.2 753) MEAN CORPUSCULAR HEMOGLOBIN (BEAKER) (test code 29.8 pg 25.7-32.2 = 751) MEAN CORPUSCULAR HEMOGLOBIN CONC (BEAKER) (test 34.6 GM/DL 32.3-36.5 code = 752) RED CELL DISTRIBUTION WIDTH (BEAKER) (test code 14.6 % 11.6-14.4 = 412) PLATELET COUNT (BEAKER) (test code = 756) 144 K/CU MM 150-45 0 MEAN PLATELET VOLUME (BEAKER) (test code = 754) 9.9 fL 9.4-12.4 NUCLEATED RED BLOOD CELLS (BEAKER) (test code = 0 /100 WBC 0-0 413) NEUTROPHILS RELATIVE PERCENT (BEAKER) (test code 66 % = 429) LYMPHOCYTES RELATIVE PERCENT (BEAKER) (test code 28 % = 430) MONOCYTES RELATIVE PERCENT (BEAKER) (test code = 5 % 431) EOSINOPHILS RELATIVE PERCENT (BEAKER) (test code 0 % = 432) BASOPHILS RELATIVE PERCENT (BEAKER) (test code = 1 % 437) NEUTROPHILS ABSOLUTE COUNT (BEAKER) (test code = 4.04 K/ L 1.78-5.38 670) LYMPHOCYTES ABSOLUTE COUNT (BEAKER) (test code = 1.69 K/ L 1.32-3.57 414) MONOCYTES ABSOLUTE COUNT (BEAKER) (test code = 0.29 K/ L 0 .30-0.82 415) EOSINOPHILS ABSOLUTE COUNT (BEAKER) (test code = 0.01 K/ L 0.04-0.54 416) BASOPHILS ABSOLUTE COUNT (BEAKER) (test code = 0.04 K/ L 0 .01-0.08 417) IMMATURE GRANULOCYTES-RELATIVE PERCENT (BEAKER) 1 % 0-1 (test code = 2801) RAPID DRUG SCREEN, [id number] 14:56:00 Test Item Value Reference Range Comments BARBITURATE URINE (BEAKER) (test code = 725) Negative Neg ative BENZODIAZEPINE SCREEN URINE (BEAKER) (test code = Positive Negative 726) COCAINE (METAB.) SCREEN (BEAKER) (test code = 1164) Negative Negative METHADONE SCREEN (BEAKER) (test code = 1436) Negative Neg ative OPIATE SCREEN URINE (BEAKER) (test code = 734) Negative N egative CANNABINOID SCREEN URINE (BEAKER) (test code = 727) Positive Negative AMPH/METHAMPH SCREEN (BEAKER) (test code = 1438) Positive Negative PHENCYCLIDINE SCREEN URINE (BEAKER) (test code = Negative Negative 608) Per telesales supervisor's recommendations, acceptable pH range for urine drug screen testing is 3 to 11. pHtesting not performed on this urine sample. While physiologically incompatible, the effect on the results of testing urine outside of pH 3-11 is unknown.DRUG CUTOFF CONC.Cocaine 300 ng/mL Cannabinoid 50 ng/mLBenzodiazepine 200 ng/mLBarbiturate 200 ng/mLPhencyclidine 25 ng/mLOpiate 300 ng/mLMethadone 300 ng/mLAmphetamine/ 1000 ng/mL MethamphetamineThis assay provides an unconfirmed qualitative test result for the clinical management of patients in emergency situations. Chain of custody not maintained. Some wqww-clh-kznbmzv medications, as well as adulterants, may cause inaccurate results. Clinicalcorrelation should be applied. A more comprehensive drug screen or confirmation of a detected drug may be performed upon request.[id number] 03:05:00 Test Item Value Reference Range Comments LIPASE (BEAKER) (test code = 749) 257 U/L 8-78 BASIC METABOLIC [id number] 03:05:00 Test Item Value Reference Range Comments SODIUM (BEAKER) (test 136 meq/L 136-145 code = 381) POTASSIUM (BEAKER) (test 4.5 meq/L 3.5-5.1 Specime n slightly code = 379) hemolyzed CHLORIDE (BEAKER) (test 104 meq/L 98-107 code = 382) CO2 (BEAKER) (test code = 25 meq/L 22-29 355) BLOOD UREA NITROGEN 5 mg/dL 7-21 (BEAKER) (test code = 354) CREATININE (BEAKER) (test 0.57 mg/dL 0.57-1.25 Specim en slightly code = 358) hemolyzed GLUCOSE RANDOM (BEAKER) 87 mg/dL 70-105 (test code = 652) CALCIUM (BEAKER) (test 8.4 mg/dL 8.4-10.2 code = 697) EGFR (BEAKER) (test code 166 mL/min/1.73 sq m ES TIMATED GFR IS NOT = 1092) ACCURATE CREA TININE CLEARANCE IN PRE DICTING GLOMERULAR FILTR ATION RATE. ESTIMATED GFR IS NOT APPLICABLE F OR DIALYSIS PATIENT S. BASIC METABOLIC [id number] 04:41:00 Test Item Value Reference Range Comments SODIUM (BEAKER) (test 134 meq/L 136-145 code = 381) POTASSIUM (BEAKER) (test 3.9 meq/L 3.5-5.1 Specime n slightly code = 379) hemolyzed CHLORIDE (BEAKER) (test 102 meq/L 98-107 code = 382) CO2 (BEAKER) (test code = 26 meq/L 22-29 355) BLOOD UREA NITROGEN 3 mg/dL 7-21 (BEAKER) (test code = 354) CREATININE (BEAKER) (test 0.50 mg/dL 0.57-1.25 Specim en slightly code = 358) hemolyzed GLUCOSE RANDOM (BEAKER) 95 mg/dL 70-105 (test code = 652) CALCIUM (BEAKER) (test 7.9 mg/dL 8.4-10.2 code = 697) EGFR (BEAKER) (test code 193 mL/min/1.73 sq m ES TIMATED GFR IS NOT = 1092) ACCURATE CREA TININE CLEARANCE IN PRE DICTING GLOMERULAR FILTR ATION RATE. ESTIMATED GFR IS NOT APPLICABLE F OR DIALYSIS PATIENT S. [id number] 04:31:00 Test Item Value Reference Range Comments LIPASE (BEAKER) (test code = 749) 334 U/L 8-78 TROPONIN [id number] 03:00:00 Test Item Value Reference Range Comments TROPONIN I (BEAKER) (test code = 397) < ng/mL 0.00-0.03 Troponin I (TnI) levels [...] failure, acidosis, acute neurological disease, and persistent tachyarrhythmia.[id number] 02:54:00 Test Item Value Reference Range Comments MAGNESIUM (BEAKER) (test code = 1.9 mg/dL 1.6-2.6 Specimen slightly hemolyzed 627) BASIC METABOLIC [id number] 02:54:00 Test Item Value Reference Range Comments SODIUM (BEAKER) (test 136 meq/L 136-145 code = 381) POTASSIUM (BEAKER) (test 3.8 meq/L 3.5-5.1 Specime n slightly code = 379) hemolyzed CHLORIDE (BEAKER) (test 100 meq/L 98-107 code = 382) CO2 (BEAKER) (test code = 28 meq/L 22-29 355) BLOOD UREA NITROGEN 3 mg/dL 7-21 (BEAKER) (test code = 354) CREATININE (BEAKER) (test 0.56 mg/dL 0.57-1.25 Specim en slightly code = 358) hemolyzed GLUCOSE RANDOM (BEAKER) 111 mg/dL 70-105 (test code = 652) CALCIUM (BEAKER) (test 8.3 mg/dL 8.4-10.2 code = 697) EGFR (BEAKER) (test code 169 mL/min/1.73 sq m ES TIMATED GFR IS NOT = 1092) ACCURATE CREA TININE CLEARANCE IN PRE DICTING GLOMERULAR FILTR ATION RATE. ESTIMATED GFR IS NOT APPLICABLE F OR DIALYSIS PATIENT S. [id number] 02:54:00 Test Item Value Reference Range Comments LIPASE (BEAKER) (test code = 749) 755 U/L 8-78 CBC W/PLT COUNT & AUTO [id number] 02:33:00 Test Item Value Reference Range Comments WHITE BLOOD CELL COUNT (BEAKER) (test code = 5.7 K/ L 3.5 -10.5 775) RED BLOOD CELL COUNT (BEAKER) (test code = 761) 3.90 M/ L 4.63-6.08 HEMOGLOBIN (BEAKER) (test code = 410) 12.0 GM/DL 13.7-17.5 HEMATOCRIT (BEAKER) (test code = 411) 36.5 % 40.1-51.0 MEAN CORPUSCULAR VOLUME (BEAKER) (test code = 93.6 fL 79 .0-92.2 753) MEAN CORPUSCULAR HEMOGLOBIN (BEAKER) (test code 30.8 pg 25.7-32.2 = 751) MEAN CORPUSCULAR HEMOGLOBIN CONC (BEAKER) (test 32.9 GM/DL 32.3-36.5 code = 752) RED CELL DISTRIBUTION WIDTH (BEAKER) (test code 13.6 % 11.6-14.4 = 412) PLATELET COUNT (BEAKER) (test code = 756) 155 K/CU MM 150-45 0 MEAN PLATELET VOLUME (BEAKER) (test code = 754) 9.4 fL 9.4-12.4 NUCLEATED RED BLOOD CELLS (BEAKER) (test code = 0 /100 WBC 0-0 413) NEUTROPHILS RELATIVE PERCENT (BEAKER) (test code 70 % = 429) LYMPHOCYTES RELATIVE PERCENT (BEAKER) (test code 19 % = 430) MONOCYTES RELATIVE PERCENT (BEAKER) (test code = 8 % 431) EOSINOPHILS RELATIVE PERCENT (BEAKER) (test code 2 % = 432) BASOPHILS RELATIVE PERCENT (BEAKER) (test code = 1 % 437) NEUTROPHILS ABSOLUTE COUNT (BEAKER) (test code = 4.03 K/ L 1.78-5.38 670) LYMPHOCYTES ABSOLUTE COUNT (BEAKER) (test code = 1.07 K/ L 1.32-3.57 414) MONOCYTES ABSOLUTE COUNT (BEAKER) (test code = 0.45 K/ L 0 .30-0.82 415) EOSINOPHILS ABSOLUTE COUNT (BEAKER) (test code = 0.12 K/ L 0.04-0.54 416) BASOPHILS ABSOLUTE COUNT (BEAKER) (test code = 0.05 K/ L 0 .01-0.08 417) IMMATURE GRANULOCYTES-RELATIVE PERCENT (BEAKER) 0 % 0-1 (test code = 2801) RAD, CHEST, 1 VIEW, NON [id number] 02:26:00Reason for exam:->pleuritic chest painShould this be performed at the bedside?->YesFINAL REPORT Chest one view. Clinical history: pleuritic chest pain Compariso n: Chest radiograph 12/10/18. Technique: A single frontal view of the chest was obtained. Findings: The cardiomediastinal contours are normal. There is no focal pulmonary consolidation, pleural effusion or pneumothorax. There is no pulmonary edema. The bony thorax is unremarkable. Impression: No focalpulmonary consolidation or pneumothorax. Signed: To [facility] MDReport Verified Date/Time: 03/22/2019 02:26:18 [id number] 08:35:00 Test Item Value Reference Range Comments MAGNESIUM (BEAKER) (test code = 1.4 mg/dL 1.6-2.6 Specimen slightly hemolyzed 627) BASIC METABOLIC [id number] 08:35:00 Test Item Value Reference Range Comments SODIUM (BEAKER) (test 138 meq/L 136-145 code = 381) POTASSIUM (BEAKER) (test 3.7 meq/L 3.5-5.1 Specime n slightly code = 379) hemolyzed CHLORIDE (BEAKER) (test 102 meq/L 98-107 code = 382) CO2 (BEAKER) (test code = 23 meq/L 22-29 355) BLOOD UREA NITROGEN 4 mg/dL 7-21 (BEAKER) (test code = 354) CREATININE (BEAKER) (test 0.48 mg/dL 0.57-1.25 Specim en slightly code = 358) hemolyzed GLUCOSE RANDOM (BEAKER) 53 mg/dL 70-105 (test code = 652) CALCIUM (BEAKER) (test 8.1 mg/dL 8.4-10.2 code = 697) EGFR (BEAKER) (test code 202 mL/min/1.73 sq m ES TIMATED GFR IS NOT = 1092) ACCURATE CREA TININE CLEARANCE IN PRE DICTING GLOMERULAR FILTR ATION RATE. ESTIMATED GFR IS NOT APPLICABLE F OR DIALYSIS PATIENT S. HEPATIC FUNCTION [id number] 08:35:00 Test Item Value Reference Range Comments TOTAL PROTEIN (BEAKER) (test 6.2 gm/dL 6.0-8.3 Spe cimen slightly hemolyzed code = 770) ALBUMIN (BEAKER) (test code = 2.7 g/dL 3.5-5.0 Sp ecimen slightly hemolyzed 1145) BILIRUBIN TOTAL (BEAKER) (test 0.5 mg/dL 0.2-1.2 S pecimen slightly hemolyzed code = 377) BILIRUBIN DIRECT (BEAKER) (test 0.3 mg/dL 0.1-0.5 Specimen slightly hemolyzed code = 706) ALKALINE PHOSPHATASE (BEAKER) 151 U/L 40-150 (test code = 346) AST (SGOT) (BEAKER) (test code 64 U/L 5-34 S pecimen slightly hemolyzed = 353) ALT (SGPT) (BEAKER) (test code 21 U/L 6-55 S pecimen slightly hemolyzed = 347) [id number] 08:35:00 Test Item Value Reference Range Comments LIPASE (BEAKER) (test code = 749) 242 U/L 8-78 CBC W/PLT COUNT & AUTO [id number] 06:25:00 Test Item Value Reference Range Comments WHITE BLOOD CELL COUNT (BEAKER) (test code = 4.2 K/ L 3.5 -10.5 775) RED BLOOD CELL COUNT (BEAKER) (test code = 761) 4.14 M/ L 4.63-6.08 HEMOGLOBIN (BEAKER) (test code = 410) 12.7 GM/DL 13.7-17.5 HEMATOCRIT (BEAKER) (test code = 411) 39.8 % 40.1-51.0 MEAN CORPUSCULAR VOLUME (BEAKER) (test code = 96.1 fL 79 .0-92.2 753) MEAN CORPUSCULAR HEMOGLOBIN (BEAKER) (test code 30.7 pg 25.7-32.2 = 751) MEAN CORPUSCULAR HEMOGLOBIN CONC (BEAKER) (test 31.9 GM/DL 32.3-36.5 code = 752) RED CELL DISTRIBUTION WIDTH (BEAKER) (test code 13.5 % 11.6-14.4 = 412) PLATELET COUNT (BEAKER) (test code = 756) 186 K/CU MM 150-45 0 MEAN PLATELET VOLUME (BEAKER) (test code = 754) 10.9 fL 9.4-12.4 NUCLEATED RED BLOOD CELLS (BEAKER) (test code = 0 /100 WBC 0-0 413) NEUTROPHILS RELATIVE PERCENT (BEAKER) (test code 55 % = 429) LYMPHOCYTES RELATIVE PERCENT (BEAKER) (test code 31 % = 430) MONOCYTES RELATIVE PERCENT (BEAKER) (test code = 8 % 431) EOSINOPHILS RELATIVE PERCENT (BEAKER) (test code 5 % = 432) BASOPHILS RELATIVE PERCENT (BEAKER) (test code = 1 % 437) NEUTROPHILS ABSOLUTE COUNT (BEAKER) (test code = 2.28 K/ L 1.78-5.38 670) LYMPHOCYTES ABSOLUTE COUNT (BEAKER) (test code = 1.28 K/ L 1.32-3.57 414) MONOCYTES ABSOLUTE COUNT (BEAKER) (test code = 0.35 K/ L 0 .30-0.82 415) EOSINOPHILS ABSOLUTE COUNT (BEAKER) (test code = 0.21 K/ L 0.04-0.54 416) BASOPHILS ABSOLUTE COUNT (BEAKER) (test code = 0.05 K/ L 0 .01-0.08 417) IMMATURE GRANULOCYTES-RELATIVE PERCENT (BEAKER) 0 % 0-1 (test code = 2801) [id number] 07:42:00 Test Item Value Reference Range Comments MAGNESIUM (BEAKER) (test code = 627) 1.5 mg/dL 1.6-2.6 BASIC METABOLIC [id number] 07:42:00 Test Item Value Reference Range Comments SODIUM (BEAKER) (test 140 meq/L 136-145 code = 381) POTASSIUM (BEAKER) (test 3.3 meq/L 3.5-5.1 code = 379) CHLORIDE (BEAKER) (test 106 meq/L 98-107 code = 382) CO2 (BEAKER) (test code = 27 meq/L 22-29 355) BLOOD UREA NITROGEN 6 mg/dL 7-21 (BEAKER) (test code = 354) CREATININE (BEAKER) (test 0.53 mg/dL 0.57-1.25 code = 358) GLUCOSE RANDOM (BEAKER) 81 mg/dL 70-105 (test code = 652) CALCIUM (BEAKER) (test 8.2 mg/dL 8.4-10.2 code = 697) EGFR (BEAKER) (test code 180 mL/min/1.73 sq m ES TIMATED GFR IS NOT = 1092) ACCURATE CREA TININE CLEARANCE IN PRE DICTING GLOMERULAR FILTR ATION RATE. ESTIMATED GFR IS NOT APPLICABLE F OR DIALYSIS PATIENT S. LIPID [id number] 07:42:00 Test Item Value Reference Range Comments TRIGLYCERIDES (BEAKER) (test code = 540) 63 mg/dL CHOLESTEROL (BEAKER) (test code = 631) 101 mg/dL HDL CHOLESTEROL (BEAKER) (test code = 976) 20 mg/dL LDL CHOLESTEROL CALCULATED (BEAKER) (test code = 68 mg/dL 633) Triglyceride Reference Range: Low Risk <150 Borderline 150-199 High Risk 200-499 Very High Risk >=500Cholesterol Reference Range: Low Risk <200 Borderline 200-239 High Risk >240HDL Cholesterol Reference Range: Low Risk >=60 High Risk <40LDL Cholesterol Reference Range: Optimal <100 Near Optimal 100-129 Borderline 130-159 High 160-189 Very High >=190HEPATIC FUNCTION [id number] 07:42:00 Test Item Value Reference Range Comments TOTAL PROTEIN (BEAKER) (test code = 770) 6.1 gm/dL 6.0-8.3 ALBUMIN (BEAKER) (test code = 1145) 2.7 g/dL 3.5-5.0 BILIRUBIN TOTAL (BEAKER) (test code = 377) 0.6 mg/dL 0.2-1 .2 BILIRUBIN DIRECT (BEAKER) (test code = 706) 0.4 mg/dL 0.1- 0.5 ALKALINE PHOSPHATASE (BEAKER) (test code = 346) 157 U/L 40-150 AST (SGOT) (BEAKER) (test code = 353) 58 U/L 5-34 ALT (SGPT) (BEAKER) (test code = 347) 21 U/L 6-55 CBC W/PLT COUNT & AUTO [id number] 05:47:00 Test Item Value Reference Range Comments WHITE BLOOD CELL COUNT (BEAKER) (test code = 4.3 K/ L 3.5 -10.5 775) RED BLOOD CELL COUNT (BEAKER) (test code = 761) 3.66 M/ L 4.63-6.08 HEMOGLOBIN (BEAKER) (test code = 410) 11.4 GM/DL 13.7-17.5 HEMATOCRIT (BEAKER) (test code = 411) 35.8 % 40.1-51.0 MEAN CORPUSCULAR VOLUME (BEAKER) (test code = 97.8 fL 79 .0-92.2 753) MEAN CORPUSCULAR HEMOGLOBIN (BEAKER) (test code 31.1 pg 25.7-32.2 = 751) MEAN CORPUSCULAR HEMOGLOBIN CONC (BEAKER) (test 31.8 GM/DL 32.3-36.5 code = 752) RED CELL DISTRIBUTION WIDTH (BEAKER) (test code 14.2 % 11.6-14.4 = 412) PLATELET COUNT (BEAKER) (test code = 756) 170 K/CU MM 150-45 0 MEAN PLATELET VOLUME (BEAKER) (test code = 754) 9.9 fL 9.4-12.4 NUCLEATED RED BLOOD CELLS (BEAKER) (test code = 0 /100 WBC 0-0 413) NEUTROPHILS RELATIVE PERCENT (BEAKER) (test code 55 % = 429) LYMPHOCYTES RELATIVE PERCENT (BEAKER) (test code 30 % = 430) MONOCYTES RELATIVE PERCENT (BEAKER) (test code = 10 % 431) EOSINOPHILS RELATIVE PERCENT (BEAKER) (test code 4 % = 432) BASOPHILS RELATIVE PERCENT (BEAKER) (test code = 1 % 437) NEUTROPHILS ABSOLUTE COUNT (BEAKER) (test code = 2.36 K/ L 1.78-5.38 670) LYMPHOCYTES ABSOLUTE COUNT (BEAKER) (test code = 1.30 K/ L 1.32-3.57 414) MONOCYTES ABSOLUTE COUNT (BEAKER) (test code = 0.41 K/ L 0 .30-0.82 415) EOSINOPHILS ABSOLUTE COUNT (BEAKER) (test code = 0.18 K/ L 0.04-0.54 416) BASOPHILS ABSOLUTE COUNT (BEAKER) (test code = 0.03 K/ L 0 .01-0.08 417) IMMATURE GRANULOCYTES-RELATIVE PERCENT (BEAKER) 1 % 0-1 (test code = 2801) BASIC METABOLIC [id number] 23:23:00 Test Item Value Reference Range Comments SODIUM (BEAKER) (test 139 meq/L 136-145 code = 381) POTASSIUM (BEAKER) (test 3.1 meq/L 3.5-5.1 code = 379) CHLORIDE (BEAKER) (test 103 meq/L 98-107 code = 382) CO2 (BEAKER) (test code = 28 meq/L 22-29 355) BLOOD UREA NITROGEN 8 mg/dL 7-21 (BEAKER) (test code = 354) CREATININE (BEAKER) (test 0.60 mg/dL 0.57-1.25 code = 358) GLUCOSE RANDOM (BEAKER) 92 mg/dL 70-105 (test code = 652) CALCIUM (BEAKER) (test 8.6 mg/dL 8.4-10.2 code = 697) EGFR (BEAKER) (test code 156 mL/min/1.73 sq m ES TIMATED GFR IS NOT = 1092) ACCURATE CREA TININE CLEARANCE IN PRE DICTING GLOMERULAR FILTR ATION RATE. ESTIMATED GFR IS NOT APPLICABLE F OR DIALYSIS PATIENT S. HEPATIC FUNCTION [id number] 23:23:00 Test Item Value Reference Range Comments TOTAL PROTEIN (BEAKER) (test code = 770) 7.1 gm/dL 6.0-8.3 ALBUMIN (BEAKER) (test code = 1145) 3.2 g/dL 3.5-5.0 BILIRUBIN TOTAL (BEAKER) (test code = 377) 0.5 mg/dL 0.2-1 .2 BILIRUBIN DIRECT (BEAKER) (test code = 706) 0.4 mg/dL 0.1- 0.5 ALKALINE PHOSPHATASE (BEAKER) (test code = 346) 187 U/L 40-150 AST (SGOT) (BEAKER) (test code = 353) 62 U/L 5-34 ALT (SGPT) (BEAKER) (test code = 347) 24 U/L 6-55 [id number] 22:57:00 Test Item Value Reference Range Comments LIPASE (BEAKER) (test code = 749) 957 U/L 8-78 [id number] 22:57:00 Test Item Value Reference Range Comments AMYLASE (BEAKER) (test code = 349) 391 U/L 25-125 [id number] 22:56:00 Test Item Value Reference Range Comments PROTIME (BEAKER) (test code = 759) 15.8 seconds 11.9-14.2 INR (BEAKER) (test code = 370) 1.3 <=5.9 PARTIAL THROMBOPLASTIN TIME (BEAKER) (test code 30.9 seconds 22.5-36.0 = 760) Effective 12/11/2018: PT Reference Range ChangeNew: 11.9-14.2 Previous: 11.7- 14.7RECOMMENDED COUMADIN/WARFARIN INR THERAPY RANGESSTANDARD DOSE: 2.0-3.0 Includes: PROPHYLAXIS for venous thrombosis, systemic embolization; TREATMENT for venous thrombosis and/or pulmonary embolus.HIGH RISK: Target INR is2.5-3.5 for patients wiht mechanical heart valves.CBC W/PLT COUNT & AUTO [id number] 22:41:00 Test Item Value Reference Range Comments WHITE BLOOD CELL COUNT (BEAKER) (test code = 6.4 K/ L 3.5 -10.5 775) RED BLOOD CELL COUNT (BEAKER) (test code = 761) 3.99 M/ L 4.63-6.08 HEMOGLOBIN (BEAKER) (test code = 410) 12.6 GM/DL 13.7-17.5 HEMATOCRIT (BEAKER) (test code = 411) 39.0 % 40.1-51.0 MEAN CORPUSCULAR VOLUME (BEAKER) (test code = 97.7 fL 79 .0-92.2 753) MEAN CORPUSCULAR HEMOGLOBIN (BEAKER) (test code 31.6 pg 25.7-32.2 = 751) MEAN CORPUSCULAR HEMOGLOBIN CONC (BEAKER) (test 32.3 GM/DL 32.3-36.5 code = 752) RED CELL DISTRIBUTION WIDTH (BEAKER) (test code 14.1 % 11.6-14.4 = 412) PLATELET COUNT (BEAKER) (test code = 756) 187 K/CU MM 150-45 0 MEAN PLATELET VOLUME (BEAKER) (test code = 754) 9.3 fL 9.4-12.4 NUCLEATED RED BLOOD CELLS (BEAKER) (test code = 0 /100 WBC 0-0 413) NEUTROPHILS RELATIVE PERCENT (BEAKER) (test code 68 % = 429) LYMPHOCYTES RELATIVE PERCENT (BEAKER) (test code 19 % = 430) MONOCYTES RELATIVE PERCENT (BEAKER) (test code = 10 % 431) EOSINOPHILS RELATIVE PERCENT (BEAKER) (test code 2 % = 432) BASOPHILS RELATIVE PERCENT (BEAKER) (test code = 1 % 437) NEUTROPHILS ABSOLUTE COUNT (BEAKER) (test code = 4.31 K/ L 1.78-5.38 670) LYMPHOCYTES ABSOLUTE COUNT (BEAKER) (test code = 1.21 K/ L 1.32-3.57 414) MONOCYTES ABSOLUTE COUNT (BEAKER) (test code = 0.65 K/ L 0 .30-0.82 415) EOSINOPHILS ABSOLUTE COUNT (BEAKER) (test code = 0.14 K/ L 0.04-0.54 416) BASOPHILS ABSOLUTE COUNT (BEAKER) (test code = 0.04 K/ L 0 .01-0.08 417) IMMATURE GRANULOCYTES-RELATIVE PERCENT (BEAKER) 0 % 0-1 (test code = 2801) COMPREHENSIVE METABOLIC [id number] 06:44:00 Test Item Value Reference Range Comments TOTAL PROTEIN (BEAKER) 6.2 gm/dL 6.0-8.3 (test code = 770) ALBUMIN (BEAKER) (test 2.7 g/dL 3.5-5.0 code = 1145) ALKALINE PHOSPHATASE 195 U/L 40-150 (BEAKER) (test code = 346) BILIRUBIN TOTAL (BEAKER) 0.7 mg/dL 0.2-1.2 (test code = 377) SODIUM (BEAKER) (test code 138 meq/L 136-145 = 381) POTASSIUM (BEAKER) (test 3.6 meq/L 3.5-5.1 code = 379) CHLORIDE (BEAKER) (test 102 meq/L 98-107 code = 382) CO2 (BEAKER) (test code = 28 meq/L 22-29 355) BLOOD UREA NITROGEN 2 mg/dL 7-21 (BEAKER) (test code = 354) CREATININE (BEAKER) (test 0.52 mg/dL 0.57-1.25 code = 358) GLUCOSE RANDOM (BEAKER) 103 mg/dL 70-105 (test code = 652) CALCIUM (BEAKER) (test 8.5 mg/dL 8.4-10.2 code = 697) AST (SGOT) (BEAKER) (test 67 U/L 5-34 code = 353) ALT (SGPT) (BEAKER) (test 31 U/L 6-55 code = 347) EGFR (BEAKER) (test code = 184 mL/min/1.73 sq ES TIMATED GFR IS NOT 1092) m ACCURATE CREA TININE CLEARANCE IN PRE DICTING GLOMERULAR FILTR ATION RATE. ESTIMATED GFR IS NOT APPLICABLE F OR DIALYSIS PATIENT S. CBC W/PLT COUNT & AUTO [id number] 06:09:00 Test Item Value Reference Range Comments WHITE BLOOD CELL COUNT (BEAKER) (test code = 4.0 K/ L 3.5 -10.5 775) RED BLOOD CELL COUNT (BEAKER) (test code = 761) 3.23 M/ L 4.63-6.08 HEMOGLOBIN (BEAKER) (test code = 410) 10.6 GM/DL 13.7-17.5 HEMATOCRIT (BEAKER) (test code = 411) 33.2 % 40.1-51.0 MEAN CORPUSCULAR VOLUME (BEAKER) (test code = 102.8 fL 79 .0-92.2 753) MEAN CORPUSCULAR HEMOGLOBIN (BEAKER) (test code 32.8 pg 25.7-32.2 = 751) MEAN CORPUSCULAR HEMOGLOBIN CONC (BEAKER) (test 31.9 GM/DL 32.3-36.5 code = 752) RED CELL DISTRIBUTION WIDTH (BEAKER) (test code 15.5 % 11.6-14.4 = 412) PLATELET COUNT (BEAKER) (test code = 756) 226 K/CU MM 150-45 0 MEAN PLATELET VOLUME (BEAKER) (test code = 754) 10.4 fL 9.4-12.4 NUCLEATED RED BLOOD CELLS (BEAKER) (test code = 0 /100 WBC 0-0 413) NEUTROPHILS RELATIVE PERCENT (BEAKER) (test code 54 % = 429) LYMPHOCYTES RELATIVE PERCENT (BEAKER) (test code 29 % = 430) MONOCYTES RELATIVE PERCENT (BEAKER) (test code = 9 % 431) EOSINOPHILS RELATIVE PERCENT (BEAKER) (test code 6 % = 432) BASOPHILS RELATIVE PERCENT (BEAKER) (test code = 1 % 437) NEUTROPHILS ABSOLUTE COUNT (BEAKER) (test code = 2.17 K/ L 1.78-5.38 670) LYMPHOCYTES ABSOLUTE COUNT (BEAKER) (test code = 1.18 K/ L 1.32-3.57 414) MONOCYTES ABSOLUTE COUNT (BEAKER) (test code = 0.37 K/ L 0 .30-0.82 415) EOSINOPHILS ABSOLUTE COUNT (BEAKER) (test code = 0.25 K/ L 0.04-0.54 416) BASOPHILS ABSOLUTE COUNT (BEAKER) (test code = 0.04 K/ L 0 .01-0.08 417) IMMATURE GRANULOCYTES-RELATIVE PERCENT (BEAKER) 0 % 0-1 (test code = 2801) COMPREHENSIVE METABOLIC [id number] 07:17:00 Test Item Value Reference Range Comments TOTAL PROTEIN (BEAKER) 7.3 gm/dL 6.0-8.3 (test code = 770) ALBUMIN (BEAKER) (test 3.2 g/dL 3.5-5.0 code = 1145) ALKALINE PHOSPHATASE 235 U/L 40-150 (BEAKER) (test code = 346) BILIRUBIN TOTAL (BEAKER) 0.9 mg/dL 0.2-1.2 (test code = 377) SODIUM (BEAKER) (test code 135 meq/L 136-145 = 381) POTASSIUM (BEAKER) (test 3.6 meq/L 3.5-5.1 code = 379) CHLORIDE (BEAKER) (test 101 meq/L 98-107 code = 382) CO2 (BEAKER) (test code = 29 meq/L 22-29 355) BLOOD UREA NITROGEN < mg/dL 7-21 (BEAKER) (test code = 354) CREATININE (BEAKER) (test 0.56 mg/dL 0.57-1.25 code = 358) GLUCOSE RANDOM (BEAKER) 87 mg/dL 70-105 (test code = 652) CALCIUM (BEAKER) (test 8.6 mg/dL 8.4-10.2 code = 697) AST (SGOT) (BEAKER) (test 96 U/L 5-34 code = 353) ALT (SGPT) (BEAKER) (test 40 U/L 6-55 code = 347) EGFR (BEAKER) (test code = 169 mL/min/1.73 sq ES TIMATED GFR IS NOT 1092) m ACCURATE CREA TININE CLEARANCE IN PRE DICTING GLOMERULAR FILTR ATION RATE. ESTIMATED GFR IS NOT APPLICABLE F OR DIALYSIS PATIENT S. CBC W/PLT COUNT & AUTO [id number] 06:05:00 Test Item Value Reference Range Comments WHITE BLOOD CELL COUNT (BEAKER) (test code = 5.1 K/ L 3.5 -10.5 775) RED BLOOD CELL COUNT (BEAKER) (test code = 761) 3.60 M/ L 4.63-6.08 HEMOGLOBIN (BEAKER) (test code = 410) 11.7 GM/DL 13.7-17.5 HEMATOCRIT (BEAKER) (test code = 411) 37.6 % 40.1-51.0 MEAN CORPUSCULAR VOLUME (BEAKER) (test code = 104.4 fL 79 .0-92.2 753) MEAN CORPUSCULAR HEMOGLOBIN (BEAKER) (test code 32.5 pg 25.7-32.2 = 751) MEAN CORPUSCULAR HEMOGLOBIN CONC (BEAKER) (test 31.1 GM/DL 32.3-36.5 code = 752) RED CELL DISTRIBUTION WIDTH (BEAKER) (test code 15.5 % 11.6-14.4 = 412) PLATELET COUNT (BEAKER) (test code = 756) 250 K/CU MM 150-45 0 MEAN PLATELET VOLUME (BEAKER) (test code = 754) 10.1 fL 9.4-12.4 NUCLEATED RED BLOOD CELLS (BEAKER) (test code = 0 /100 WBC 0-0 413) NEUTROPHILS RELATIVE PERCENT (BEAKER) (test code 61 % = 429) LYMPHOCYTES RELATIVE PERCENT (BEAKER) (test code 25 % = 430) MONOCYTES RELATIVE PERCENT (BEAKER) (test code = 8 % 431) EOSINOPHILS RELATIVE PERCENT (BEAKER) (test code 5 % = 432) BASOPHILS RELATIVE PERCENT (BEAKER) (test code = 1 % 437) NEUTROPHILS ABSOLUTE COUNT (BEAKER) (test code = 3.09 K/ L 1.78-5.38 670) LYMPHOCYTES ABSOLUTE COUNT (BEAKER) (test code = 1.28 K/ L 1.32-3.57 414) MONOCYTES ABSOLUTE COUNT (BEAKER) (test code = 0.39 K/ L 0 .30-0.82 415) EOSINOPHILS ABSOLUTE COUNT (BEAKER) (test code = 0.25 K/ L 0.04-0.54 416) BASOPHILS ABSOLUTE COUNT (BEAKER) (test code = 0.05 K/ L 0 .01-0.08 417) IMMATURE GRANULOCYTES-RELATIVE PERCENT (BEAKER) 0 % 0-1 (test code = 2801) [id number] 07:51:00 Test Item Value Reference Range Comments MAGNESIUM (BEAKER) (test code = 627) 1.7 mg/dL 1.6-2.6 COMPREHENSIVE METABOLIC [id number] 06:19:00 Test Item Value Reference Range Comments TOTAL PROTEIN (BEAKER) 6.1 gm/dL 6.0-8.3 (test code = 770) ALBUMIN (BEAKER) (test 2.7 g/dL 3.5-5.0 code = 1145) ALKALINE PHOSPHATASE 214 U/L 40-150 (BEAKER) (test code = 346) BILIRUBIN TOTAL (BEAKER) 0.9 mg/dL 0.2-1.2 (test code = 377) SODIUM (BEAKER) (test code 139 meq/L 136-145 = 381) POTASSIUM (BEAKER) (test 4.2 meq/L 3.5-5.1 code = 379) CHLORIDE (BEAKER) (test 110 meq/L 98-107 code = 382) CO2 (BEAKER) (test code = 24 meq/L 22-29 355) BLOOD UREA NITROGEN < mg/dL 7-21 (BEAKER) (test code = 354) CREATININE (BEAKER) (test 0.50 mg/dL 0.57-1.25 code = 358) GLUCOSE RANDOM (BEAKER) 77 mg/dL 70-105 (test code = 652) CALCIUM (BEAKER) (test 7.7 mg/dL 8.4-10.2 code = 697) AST (SGOT) (BEAKER) (test 96 U/L 5-34 code = 353) ALT (SGPT) (BEAKER) (test 37 U/L 6-55 code = 347) EGFR (BEAKER) (test code = 193 mL/min/1.73 sq ES TIMATED GFR IS NOT 1092) m ACCURATE CREA TININE CLEARANCE IN PRE DICTING GLOMERULAR FILTR ATION RATE. ESTIMATED GFR IS NOT APPLICABLE F OR DIALYSIS PATIENT S. CBC W/PLT COUNT & AUTO [id number] 05:15:00 Test Item Value Reference Range Comments WHITE BLOOD CELL COUNT (BEAKER) (test code = 4.8 K/ L 3.5 -10.5 775) RED BLOOD CELL COUNT (BEAKER) (test code = 761) 3.25 M/ L 4.63-6.08 HEMOGLOBIN (BEAKER) (test code = 410) 10.7 GM/DL 13.7-17.5 HEMATOCRIT (BEAKER) (test code = 411) 34.0 % 40.1-51.0 MEAN CORPUSCULAR VOLUME (BEAKER) (test code = 104.6 fL 79 .0-92.2 753) MEAN CORPUSCULAR HEMOGLOBIN (BEAKER) (test code 32.9 pg 25.7-32.2 = 751) MEAN CORPUSCULAR HEMOGLOBIN CONC (BEAKER) (test 31.5 GM/DL 32.3-36.5 code = 752) RED CELL DISTRIBUTION WIDTH (BEAKER) (test code 15.5 % 11.6-14.4 = 412) PLATELET COUNT (BEAKER) (test code = 756) 219 K/CU MM 150-45 0 MEAN PLATELET VOLUME (BEAKER) (test code = 754) 10.2 fL 9.4-12.4 NUCLEATED RED BLOOD CELLS (BEAKER) (test code = 0 /100 WBC 0-0 413) NEUTROPHILS RELATIVE PERCENT (BEAKER) (test code 56 % = 429) LYMPHOCYTES RELATIVE PERCENT (BEAKER) (test code 29 % = 430) MONOCYTES RELATIVE PERCENT (BEAKER) (test code = 8 % 431) EOSINOPHILS RELATIVE PERCENT (BEAKER) (test code 5 % = 432) BASOPHILS RELATIVE PERCENT (BEAKER) (test code = 1 % 437) NEUTROPHILS ABSOLUTE COUNT (BEAKER) (test code = 2.69 K/ L 1.78-5.38 670) LYMPHOCYTES ABSOLUTE COUNT (BEAKER) (test code = 1.40 K/ L 1.32-3.57 414) MONOCYTES ABSOLUTE COUNT (BEAKER) (test code = 0.37 K/ L 0 .30-0.82 415) EOSINOPHILS ABSOLUTE COUNT (BEAKER) (test code = 0.25 K/ L 0.04-0.54 416) BASOPHILS ABSOLUTE COUNT (BEAKER) (test code = 0.05 K/ L 0 .01-0.08 417) IMMATURE GRANULOCYTES-RELATIVE PERCENT (BEAKER) 0 % 0-1 (test code = 2801) COMPREHENSIVE METABOLIC [id number] 09:35:00 Test Item Value Reference Range Comments TOTAL PROTEIN (BEAKER) 6.4 gm/dL 6.0-8.3 Specimen slightly (test code = 770) hemolyzed ALBUMIN (BEAKER) (test 2.8 g/dL 3.5-5.0 Specimen slightly code = 1145) hemolyzed ALKALINE PHOSPHATASE 214 U/L 40-150 (BEAKER) (test code = 346) BILIRUBIN TOTAL (BEAKER) 1.0 mg/dL 0.2-1.2 Specime n slightly (test code = 377) hemolyzed SODIUM (BEAKER) (test code 136 meq/L 136-145 = 381) POTASSIUM (BEAKER) (test 4.2 meq/L 3.5-5.1 Specime n slightly code = 379) hemolyzed CHLORIDE (BEAKER) (test 107 meq/L 98-107 code = 382) CO2 (BEAKER) (test code = 23 meq/L 22-29 355) BLOOD UREA NITROGEN 2 mg/dL 7-21 (BEAKER) (test code = 354) CREATININE (BEAKER) (test 0.54 mg/dL 0.57-1.25 Specim en slightly code = 358) hemolyzed GLUCOSE RANDOM (BEAKER) 89 mg/dL 70-105 (test code = 652) CALCIUM (BEAKER) (test 7.6 mg/dL 8.4-10.2 code = 697) AST (SGOT) (BEAKER) (test 101 U/L 5-34 Specim en slightly code = 353) hemolyzed ALT (SGPT) (BEAKER) (test 41 U/L 6-55 Specim en slightly code = 347) hemolyzed EGFR (BEAKER) (test code = 176 mL/min/1.73 sq ES TIMATED GFR IS NOT 1092) m ACCURATE CREA TININE CLEARANCE IN PRE DICTING GLOMERULAR FILTR ATION RATE. ESTIMATED GFR IS NOT APPLICABLE F OR DIALYSIS PATIENT S. [id number] 09:27:00 Test Item Value Reference Range Comments MAGNESIUM (BEAKER) (test code = 1.3 mg/dL 1.6-2.6 Specimen slightly hemolyzed 627) CBC W/PLT COUNT & AUTO [id number] 09:04:00 Test Item Value Reference Range Comments WHITE BLOOD CELL COUNT (BEAKER) (test code = 5.7 K/ L 3.5 -10.5 775) RED BLOOD CELL COUNT (BEAKER) (test code = 761) 3.18 M/ L 4.63-6.08 HEMOGLOBIN (BEAKER) (test code = 410) 10.4 GM/DL 13.7-17.5 HEMATOCRIT (BEAKER) (test code = 411) 33.1 % 40.1-51.0 MEAN CORPUSCULAR VOLUME (BEAKER) (test code = 104.1 fL 79 .0-92.2 753) MEAN CORPUSCULAR HEMOGLOBIN (BEAKER) (test code 32.7 pg 25.7-32.2 = 751) MEAN CORPUSCULAR HEMOGLOBIN CONC (BEAKER) (test 31.4 GM/DL 32.3-36.5 code = 752) RED CELL DISTRIBUTION WIDTH (BEAKER) (test code 15.9 % 11.6-14.4 = 412) PLATELET COUNT (BEAKER) (test code = 756) 223 K/CU MM 150-45 0 MEAN PLATELET VOLUME (BEAKER) (test code = 754) 10.4 fL 9.4-12.4 NUCLEATED RED BLOOD CELLS (BEAKER) (test code = 0 /100 WBC 0-0 413) NEUTROPHILS RELATIVE PERCENT (BEAKER) (test code 58 % = 429) LYMPHOCYTES RELATIVE PERCENT (BEAKER) (test code 25 % = 430) MONOCYTES RELATIVE PERCENT (BEAKER) (test code = 11 % 431) EOSINOPHILS RELATIVE PERCENT (BEAKER) (test code 5 % = 432) BASOPHILS RELATIVE PERCENT (BEAKER) (test code = 1 % 437) NEUTROPHILS ABSOLUTE COUNT (BEAKER) (test code = 3.27 K/ L 1.78-5.38 670) LYMPHOCYTES ABSOLUTE COUNT (BEAKER) (test code = 1.40 K/ L 1.32-3.57 414) MONOCYTES ABSOLUTE COUNT (BEAKER) (test code = 0.61 K/ L 0 .30-0.82 415) EOSINOPHILS ABSOLUTE COUNT (BEAKER) (test code = 0.30 K/ L 0.04-0.54 416) BASOPHILS ABSOLUTE COUNT (BEAKER) (test code = 0.07 K/ L 0 .01-0.08 417) IMMATURE GRANULOCYTES-RELATIVE PERCENT (BEAKER) 0 % 0-1 (test code = 2801) COMPREHENSIVE METABOLIC [id number] 05:26:00 Test Item Value Reference Range Comments TOTAL PROTEIN (BEAKER) 5.7 gm/dL 6.0-8.3 (test code = 770) ALBUMIN (BEAKER) (test 2.6 g/dL 3.5-5.0 code = 1145) ALKALINE PHOSPHATASE 204 U/L 40-150 (BEAKER) (test code = 346) BILIRUBIN TOTAL (BEAKER) 1.0 mg/dL 0.2-1.2 (test code = 377) SODIUM (BEAKER) (test code 138 meq/L 136-145 = 381) POTASSIUM (BEAKER) (test 3.3 meq/L 3.5-5.1 code = 379) CHLORIDE (BEAKER) (test 106 meq/L 98-107 code = 382) CO2 (BEAKER) (test code = 24 meq/L 22-29 355) BLOOD UREA NITROGEN 5 mg/dL 7-21 (BEAKER) (test code = 354) CREATININE (BEAKER) (test 0.53 mg/dL 0.57-1.25 code = 358) GLUCOSE RANDOM (BEAKER) 85 mg/dL 70-105 (test code = 652) CALCIUM (BEAKER) (test 7.3 mg/dL 8.4-10.2 code = 697) AST (SGOT) (BEAKER) (test 108 U/L 5-34 code = 353) ALT (SGPT) (BEAKER) (test 46 U/L 6-55 code = 347) EGFR (BEAKER) (test code = 180 mL/min/1.73 sq ES TIMATED GFR IS NOT 1092) m ACCURATE CREA TININE CLEARANCE IN PRE DICTING GLOMERULAR FILTR ATION RATE. ESTIMATED GFR IS NOT APPLICABLE F OR DIALYSIS PATIENT S. PROTHROMBIN [id number] 05:08:00 Test Item Value Reference Range Comments PROTIME (BEAKER) (test code = 759) 17.0 seconds 11.9-14.2 INR (BEAKER) (test code = 370) 1.5 <=5.9 Effective 12/11/2018: PT Reference Range ChangeNew: 11.9-14.2 Previous: 11.7- 14.7RECOMMENDED COUMADIN/WARFARIN INR THERAPY RANGESSTANDARD DOSE: 2.0-3.0 Includes: PROPHYLAXIS for venous thrombosis, systemic embolization; TREATMENT for venous thrombosis and/or pulmonary embolus.HIGH RISK: Target INR is2.5-3.5 for patients wiht mechanical heart valves.CBC W/PLT COUNT & AUTO [id number] 04:59:00 Test Item Value Reference Range Comments WHITE BLOOD CELL COUNT (BEAKER) (test code = 6.1 K/ L 3.5 -10.5 775) RED BLOOD CELL COUNT (BEAKER) (test code = 761) 2.96 M/ L 4.63-6.08 HEMOGLOBIN (BEAKER) (test code = 410) 9.7 GM/DL 13.7-17.5 HEMATOCRIT (BEAKER) (test code = 411) 30.5 % 40.1-51.0 MEAN CORPUSCULAR VOLUME (BEAKER) (test code = 103.0 fL 79 .0-92.2 753) MEAN CORPUSCULAR HEMOGLOBIN (BEAKER) (test code 32.8 pg 25.7-32.2 = 751) MEAN CORPUSCULAR HEMOGLOBIN CONC (BEAKER) (test 31.8 GM/DL 32.3-36.5 code = 752) RED CELL DISTRIBUTION WIDTH (BEAKER) (test code 16.0 % 11.6-14.4 = 412) PLATELET COUNT (BEAKER) (test code = 756) 221 K/CU MM 150-45 0 MEAN PLATELET VOLUME (BEAKER) (test code = 754) 10.7 fL 9.4-12.4 NUCLEATED RED BLOOD CELLS (BEAKER) (test code = 0 /100 WBC 0-0 413) NEUTROPHILS RELATIVE PERCENT (BEAKER) (test code 62 % = 429) LYMPHOCYTES RELATIVE PERCENT (BEAKER) (test code 22 % = 430) MONOCYTES RELATIVE PERCENT (BEAKER) (test code = 11 % 431) EOSINOPHILS RELATIVE PERCENT (BEAKER) (test code 3 % = 432) BASOPHILS RELATIVE PERCENT (BEAKER) (test code = 1 % 437) NEUTROPHILS ABSOLUTE COUNT (BEAKER) (test code = 3.81 K/ L 1.78-5.38 670) LYMPHOCYTES ABSOLUTE COUNT (BEAKER) (test code = 1.32 K/ L 1.32-3.57 414) MONOCYTES ABSOLUTE COUNT (BEAKER) (test code = 0.70 K/ L 0 .30-0.82 415) EOSINOPHILS ABSOLUTE COUNT (BEAKER) (test code = 0.21 K/ L 0.04-0.54 416) BASOPHILS ABSOLUTE COUNT (BEAKER) (test code = 0.07 K/ L 0 .01-0.08 417) IMMATURE GRANULOCYTES-RELATIVE PERCENT (BEAKER) 0 % 0-1 (test code = 2801) POCT-GLUCOSE [id number] 07:44:00 Test Item Value Reference Range Comments POC-GLUCOSE METER (BEAKER) 90 mg/dL 70-110 TESTE D AT [facility] [address] [facility] (test code = 1538) [facility] [id number] COMPREHENSIVE METABOLIC [id number] 07:29:00 Test Item Value Reference Range Comments TOTAL PROTEIN (BEAKER) 5.7 gm/dL 6.0-8.3 (test code = 770) ALBUMIN (BEAKER) (test 2.5 g/dL 3.5-5.0 code = 1145) ALKALINE PHOSPHATASE 411 U/L 40-150 (BEAKER) (test code = 346) BILIRUBIN TOTAL (BEAKER) 1.7 mg/dL 0.2-1.2 (test code = 377) SODIUM (BEAKER) (test code 139 meq/L 136-145 = 381) POTASSIUM (BEAKER) (test 3.1 meq/L 3.5-5.1 code = 379) CHLORIDE (BEAKER) (test 105 meq/L 98-107 code = 382) CO2 (BEAKER) (test code = 24 meq/L 22-29 355) BLOOD UREA NITROGEN 3 mg/dL 7-21 (BEAKER) (test code = 354) CREATININE (BEAKER) (test 0.61 mg/dL 0.57-1.25 code = 358) GLUCOSE RANDOM (BEAKER) 95 mg/dL 70-105 (test code = 652) CALCIUM (BEAKER) (test 6.8 mg/dL 8.4-10.2 code = 697) AST (SGOT) (BEAKER) (test 173 U/L 5-34 code = 353) ALT (SGPT) (BEAKER) (test 53 U/L 6-55 code = 347) EGFR (BEAKER) (test code = 153 mL/min/1.73 sq ES TIMATED GFR IS NOT 1092) m ACCURATE CREA TININE CLEARANCE IN PRE DICTING GLOMERULAR FILTR ATION RATE. ESTIMATED GFR IS NOT APPLICABLE F OR DIALYSIS PATIENT S. [id number] 07:28:00 Test Item Value Reference Range Comments PHOSPHORUS (BEAKER) (test code = 604) 2.4 mg/dL 2.3-4.7 [id number] 07:28:00 Test Item Value Reference Range Comments MAGNESIUM (BEAKER) (test code = 627) 1.8 mg/dL 1.6-2.6 HEPATIC FUNCTION [id number] 07:28:00 Test Item Value Reference Range Comments TOTAL PROTEIN (BEAKER) (test code = 770) 5.7 gm/dL 6.0-8.3 ALBUMIN (BEAKER) (test code = 1145) 2.5 g/dL 3.5-5.0 BILIRUBIN TOTAL (BEAKER) (test code = 377) 1.7 mg/dL 0.2-1 .2 BILIRUBIN DIRECT (BEAKER) (test code = 706) 1.3 mg/dL 0.1- 0.5 ALKALINE PHOSPHATASE (BEAKER) (test code = 346) 411 U/L 40-150 AST (SGOT) (BEAKER) (test code = 353) 173 U/L 5-34 ALT (SGPT) (BEAKER) (test code = 347) 53 U/L 6-55 [id number] 07:28:00 Test Item Value Reference Range Comments LIPASE (BEAKER) (test code = 749) 231 U/L 8-78 CBC W/PLT COUNT & AUTO [id number] 07:10:00 Test Item Value Reference Range Comments WHITE BLOOD CELL COUNT (BEAKER) (test code = 4.5 K/ L 3.5 -10.5 775) RED BLOOD CELL COUNT (BEAKER) (test code = 761) 2.76 M/ L 4.63-6.08 HEMOGLOBIN (BEAKER) (test code = 410) 9.2 GM/DL 13.7-17.5 HEMATOCRIT (BEAKER) (test code = 411) 29.2 % 40.1-51.0 MEAN CORPUSCULAR VOLUME (BEAKER) (test code = 105.8 fL 79 .0-92.2 753) MEAN CORPUSCULAR HEMOGLOBIN (BEAKER) (test code 33.3 pg 25.7-32.2 = 751) MEAN CORPUSCULAR HEMOGLOBIN CONC (BEAKER) (test 31.5 GM/DL 32.3-36.5 code = 752) RED CELL DISTRIBUTION WIDTH (BEAKER) (test code 21.9 % 11.6-14.4 = 412) PLATELET COUNT (BEAKER) (test code = 756) 150 K/CU MM 150-45 0 MEAN PLATELET VOLUME (BEAKER) (test code = 754) 10.5 fL 9.4-12.4 NUCLEATED RED BLOOD CELLS (BEAKER) (test code = 0 /100 WBC 0-0 413) NEUTROPHILS RELATIVE PERCENT (BEAKER) (test code 65 % = 429) LYMPHOCYTES RELATIVE PERCENT (BEAKER) (test code 17 % = 430) MONOCYTES RELATIVE PERCENT (BEAKER) (test code = 13 % 431) EOSINOPHILS RELATIVE PERCENT (BEAKER) (test code 2 % = 432) BASOPHILS RELATIVE PERCENT (BEAKER) (test code = 1 % 437) NEUTROPHILS ABSOLUTE COUNT (BEAKER) (test code = 2.91 K/ L 1.78-5.38 670) LYMPHOCYTES ABSOLUTE COUNT (BEAKER) (test code = 0.78 K/ L 1.32-3.57 414) MONOCYTES ABSOLUTE COUNT (BEAKER) (test code = 0.59 K/ L 0 .30-0.82 415) EOSINOPHILS ABSOLUTE COUNT (BEAKER) (test code = 0.11 K/ L 0.04-0.54 416) BASOPHILS ABSOLUTE COUNT (BEAKER) (test code = 0.05 K/ L 0 .01-0.08 417) IMMATURE GRANULOCYTES-RELATIVE PERCENT (BEAKER) 2 % 0-1 (test code = 2801) COMPREHENSIVE METABOLIC [id number] 04:23:00 Test Item Value Reference Range Comments TOTAL PROTEIN (BEAKER) 5.5 gm/dL 6.0-8.3 (test code = 770) ALBUMIN (BEAKER) (test 2.5 g/dL 3.5-5.0 code = 1145) ALKALINE PHOSPHATASE 453 U/L 40-150 (BEAKER) (test code = 346) BILIRUBIN TOTAL (BEAKER) 2.0 mg/dL 0.2-1.2 (test code = 377) SODIUM (BEAKER) (test code 138 meq/L 136-145 = 381) POTASSIUM (BEAKER) (test 3.2 meq/L 3.5-5.1 code = 379) CHLORIDE (BEAKER) (test 104 meq/L 98-107 code = 382) CO2 (BEAKER) (test code = 26 meq/L 22-29 355) BLOOD UREA NITROGEN 3 mg/dL 7-21 (BEAKER) (test code = 354) CREATININE (BEAKER) (test 0.51 mg/dL 0.57-1.25 code = 358) GLUCOSE RANDOM (BEAKER) 104 mg/dL 70-105 (test code = 652) CALCIUM (BEAKER) (test 7.0 mg/dL 8.4-10.2 code = 697) AST (SGOT) (BEAKER) (test 166 U/L 5-34 code = 353) ALT (SGPT) (BEAKER) (test 52 U/L 6-55 code = 347) EGFR (BEAKER) (test code = 188 mL/min/1.73 sq ES TIMATED GFR IS NOT 1092) m ACCURATE CREA TININE CLEARANCE IN PRE DICTING GLOMERULAR FILTR ATION RATE. ESTIMATED GFR IS NOT APPLICABLE F OR DIALYSIS PATIENT S. [id number] 04:21:00 Test Item Value Reference Range Comments PHOSPHORUS (BEAKER) (test code = 604) 2.0 mg/dL 2.3-4.7 [id number] 04:21:00 Test Item Value Reference Range Comments MAGNESIUM (BEAKER) (test code = 627) 1.5 mg/dL 1.6-2.6 HEPATIC FUNCTION [id number] 04:21:00 Test Item Value Reference Range Comments TOTAL PROTEIN (BEAKER) (test code = 770) 5.5 gm/dL 6.0-8.3 ALBUMIN (BEAKER) (test code = 1145) 2.5 g/dL 3.5-5.0 BILIRUBIN TOTAL (BEAKER) (test code = 377) 2.0 mg/dL 0.2-1 .2 BILIRUBIN DIRECT (BEAKER) (test code = 706) 1.5 mg/dL 0.1- 0.5 ALKALINE PHOSPHATASE (BEAKER) (test code = 346) 453 U/L 40-150 AST (SGOT) (BEAKER) (test code = 353) 166 U/L 5-34 ALT (SGPT) (BEAKER) (test code = 347) 52 U/L 6-55 [id number] 04:21:00 Test Item Value Reference Range Comments LIPASE (BEAKER) (test code = 749) 283 U/L 8-78 CBC W/PLT COUNT & AUTO [id number] 04:19:00 Test Item Value Reference Range Comments WHITE BLOOD CELL COUNT (BEAKER) (test code = 4.6 K/ L 3.5 -10.5 775) RED BLOOD CELL COUNT (BEAKER) (test code = 761) 2.82 M/ L 4.63-6.08 HEMOGLOBIN (BEAKER) (test code = 410) 9.4 GM/DL 13.7-17.5 HEMATOCRIT (BEAKER) (test code = 411) 28.9 % 40.1-51.0 MEAN CORPUSCULAR VOLUME (BEAKER) (test code = 102.5 fL 79 .0-92.2 753) MEAN CORPUSCULAR HEMOGLOBIN (BEAKER) (test code 33.3 pg 25.7-32.2 = 751) MEAN CORPUSCULAR HEMOGLOBIN CONC (BEAKER) (test 32.5 GM/DL 32.3-36.5 code = 752) RED CELL DISTRIBUTION WIDTH (BEAKER) (test code 21.8 % 11.6-14.4 = 412) PLATELET COUNT (BEAKER) (test code = 756) 141 K/CU MM 150-45 0 MEAN PLATELET VOLUME (BEAKER) (test code = 754) 9.5 fL 9.4-12.4 NUCLEATED RED BLOOD CELLS (BEAKER) (test code = 0 /100 WBC 0-0 413) NEUTROPHILS RELATIVE PERCENT (BEAKER) (test code 63 % = 429) LYMPHOCYTES RELATIVE PERCENT (BEAKER) (test code 22 % = 430) MONOCYTES RELATIVE PERCENT (BEAKER) (test code = 10 % 431) EOSINOPHILS RELATIVE PERCENT (BEAKER) (test code 3 % = 432) BASOPHILS RELATIVE PERCENT (BEAKER) (test code = 1 % 437) NEUTROPHILS ABSOLUTE COUNT (BEAKER) (test code = 2.86 K/ L 1.78-5.38 670) LYMPHOCYTES ABSOLUTE COUNT (BEAKER) (test code = 1.02 K/ L 1.32-3.57 414) MONOCYTES ABSOLUTE COUNT (BEAKER) (test code = 0.44 K/ L 0 .30-0.82 415) EOSINOPHILS ABSOLUTE COUNT (BEAKER) (test code = 0.12 K/ L 0.04-0.54 416) BASOPHILS ABSOLUTE COUNT (BEAKER) (test code = 0.05 K/ L 0 .01-0.08 417) IMMATURE GRANULOCYTES-RELATIVE PERCENT (BEAKER) 2 % 0-1 (test code = 2801) HEMOGLOBIN AND [id number] 03:57:00 Test Item Value Reference Range Comments HEMOGLOBIN (BEAKER) (test code = 410) 9.4 GM/DL 13.7-17.5 HEMATOCRIT (BEAKER) (test code = 411) 28.9 % 40.1-51.0 HEMOGLOBIN AND [id number] 11:59:00 Test Item Value Reference Range Comments HEMOGLOBIN (BEAKER) (test code = 410) 8.4 GM/DL 13.7-17.5 HEMATOCRIT (BEAKER) (test code = 411) 24.7 % 40.1-51.0 [id number] 09:15:00 Test Item Value Reference Range Comments LIPASE (BEAKER) (test code = 749) 214 U/L 8-78 HEPATIC FUNCTION [id number] 06:09:00 Test Item Value Reference Range Comments TOTAL PROTEIN (BEAKER) (test code = 770) 5.1 gm/dL 6.0-8.3 ALBUMIN (BEAKER) (test code = 1145) 2.4 g/dL 3.5-5.0 BILIRUBIN TOTAL (BEAKER) (test code = 377) 2.0 mg/dL 0.2-1 .2 BILIRUBIN DIRECT (BEAKER) (test code = 706) 1.4 mg/dL 0.1- 0.5 ALKALINE PHOSPHATASE (BEAKER) (test code = 346) 418 U/L 40-150 AST (SGOT) (BEAKER) (test code = 353) 147 U/L 5-34 ALT (SGPT) (BEAKER) (test code = 347) 51 U/L 6-55 CBC (HEMOGRAM ONLY)[id number] 05:04:00 Test Item Value Reference Range Comments WHITE BLOOD CELL COUNT (BEAKER) (test code = 4.8 K/ L 3.5 -10.5 775) RED BLOOD CELL COUNT (BEAKER) (test code = 761) 2.41 M/ L 4.63-6.08 HEMOGLOBIN (BEAKER) (test code = 410) 8.1 GM/DL 13.7-17.5 HEMATOCRIT (BEAKER) (test code = 411) 24.1 % 40.1-51.0 MEAN CORPUSCULAR VOLUME (BEAKER) (test code = 100.0 fL 79 .0-92.2 753) MEAN CORPUSCULAR HEMOGLOBIN (BEAKER) (test code 33.6 pg 25.7-32.2 = 751) MEAN CORPUSCULAR HEMOGLOBIN CONC (BEAKER) (test 33.6 GM/DL 32.3-36.5 code = 752) RED CELL DISTRIBUTION WIDTH (BEAKER) (test code 22.4 % 11.6-14.4 = 412) PLATELET COUNT (BEAKER) (test code = 756) 135 K/CU MM 150-45 0 MEAN PLATELET VOLUME (BEAKER) (test code = 754) 10.0 fL 9.4-12.4 NUCLEATED RED BLOOD CELLS (BEAKER) (test code = 1 /100 WBC 0-0 413) BASIC METABOLIC [id number] 02:50:00 Test Item Value Reference Range Comments SODIUM (BEAKER) (test 137 meq/L 136-145 code = 381) POTASSIUM (BEAKER) (test 3.1 meq/L 3.5-5.1 code = 379) CHLORIDE (BEAKER) (test 104 meq/L 98-107 code = 382) CO2 (BEAKER) (test code = 24 meq/L 22-29 355) BLOOD UREA NITROGEN 3 mg/dL 7-21 (BEAKER) (test code = 354) CREATININE (BEAKER) (test 0.50 mg/dL 0.57-1.25 code = 358) GLUCOSE RANDOM (BEAKER) 124 mg/dL 70-105 (test code = 652) CALCIUM (BEAKER) (test 6.5 mg/dL 8.4-10.2 code = 697) EGFR (BEAKER) (test code 193 mL/min/1.73 sq m ES TIMATED GFR IS NOT = 1092) ACCURATE CREA TININE CLEARANCE IN PRE DICTING GLOMERULAR FILTR ATION RATE. ESTIMATED GFR IS NOT APPLICABLE F OR DIALYSIS PATIENT S. [id number] 02:14:00 Test Item Value Reference Range Comments PHOSPHORUS (BEAKER) (test code = 604) 2.6 mg/dL 2.3-4.7 [id number] 02:14:00 Test Item Value Reference Range Comments MAGNESIUM (BEAKER) (test code = 627) 1.9 mg/dL 1.6-2.6 HEMOGLOBIN AND [id number] 01:13:00 Test Item Value Reference Range Comments HEMOGLOBIN (BEAKER) (test code = 410) 8.1 GM/DL 13.7-17.5 HEMATOCRIT (BEAKER) (test code = 411) 23.8 % 40.1-51.0 POCT-GLUCOSE [id number] 20:56:00 Test Item Value Reference Range Comments POC-GLUCOSE METER (BEAKER) 105 mg/dL 70-110 [facility] [facility] (test code = 1538) [facility] 77 030 COMPREHENSIVE METABOLIC [id number] 14:51:00 Test Item Value Reference Range Comments TOTAL PROTEIN (BEAKER) 6.0 gm/dL 6.0-8.3 (test code = 770) ALBUMIN (BEAKER) (test 2.8 g/dL 3.5-5.0 code = 1145) ALKALINE PHOSPHATASE 489 U/L 40-150 (BEAKER) (test code = 346) BILIRUBIN TOTAL (BEAKER) 2.7 mg/dL 0.2-1.2 (test code = 377) SODIUM (BEAKER) (test code 141 meq/L 136-145 = 381) POTASSIUM (BEAKER) (test 2.6 meq/L 3.5-5.1 code = 379) CHLORIDE (BEAKER) (test 103 meq/L 98-107 code = 382) CO2 (BEAKER) (test code = 28 meq/L 22-29 355) BLOOD UREA NITROGEN 5 mg/dL 7-21 (BEAKER) (test code = 354) CREATININE (BEAKER) (test 0.54 mg/dL 0.57-1.25 code = 358) GLUCOSE RANDOM (BEAKER) 88 mg/dL 70-105 (test code = 652) CALCIUM (BEAKER) (test 7.1 mg/dL 8.4-10.2 code = 697) AST (SGOT) (BEAKER) (test 168 U/L 5-34 code = 353) ALT (SGPT) (BEAKER) (test 61 U/L 6-55 code = 347) EGFR (BEAKER) (test code = 176 mL/min/1.73 sq ES TIMATED GFR IS NOT 1092) m ACCURATE CREA TININE CLEARANCE IN PRE DICTING GLOMERULAR FILTR ATION RATE. ESTIMATED GFR IS NOT APPLICABLE F OR DIALYSIS PATIENT S. Specimen slightly [id number] 14:51:00 Test Item Value Reference Range Comments PHOSPHORUS (BEAKER) (test code = 604) 0.9 mg/dL 2.3-4.7 [id number] 14:41:00 Test Item Value Reference Range Comments MAGNESIUM (BEAKER) (test code = 627) 1.3 mg/dL 1.6-2.6 [id number] 14:41:00 Test Item Value Reference Range Comments AMYLASE (BEAKER) (test code = 349) 160 U/L 25-125 Specimen slightly ictericLACTATE DEHYDROGENASE (LDH)2019-02-12 14:41:00 Test Item Value Reference Range Comments LACTATE DEHYDROGENASE (BEAKER) (test code = 635) 572 U/L 125-220 [id number] 14:41:00 Test Item Value Reference Range Comments LIPASE (BEAKER) (test code = 749) 562 U/L 8-78 Specimen slightly [id number] 14:39:00 Test Item Value Reference Range Comments ETHANOL (BEAKER) (test code = 400) < mg/dL <=10 [id number] 14:27:00 Test Item Value Reference Range Comments D-DIMER QUANTITATIVE (BEAKER) (test code = 4.23 MG/L FEU <0.50 671) Intended Use: The D-Dimer Assay can be used to aid in the diagnosis of Deep Vein Thrombosis (DVT) and Pulmonary Embolism Disease (PED).In patients with low pre- test probability, various studies concerning STA Liatest D-dimer test have reported that with a cutoff value of 0.50 MG/L FEU, the Negative Predictive Value (NPV) regarding the exclusion of thrombosis is within 95-100% range.LACTIC ACID, [id number] 14:25:00 Test Item Value Reference Range Comments LACTATE BLOOD VENOUS (2) (BEAKER) (test code = 1.5 mmol/L 0 .5-2.2 2872) [id number] 14:21:00 Test Item Value Reference Range Comments AMMONIA (BEAKER) (test code = 348) 50 mol/L 18-72 [id number] 14:17:00 Test Item Value Reference Range Comments PROTIME (BEAKER) (test code = 759) 17.8 seconds 11.9-14.2 INR (BEAKER) (test code = 370) 1.6 <=5.9 PARTIAL THROMBOPLASTIN TIME (BEAKER) (test code 34.9 seconds 22.5-36.0 = 760) Effective 12/11/2018: PT Reference Range ChangeNew: 11.9-14.2 Previous: 11.7- 14.7RECOMMENDED COUMADIN/WARFARIN INR THERAPY RANGESSTANDARD DOSE: 2.0-3.0 Includes: PROPHYLAXIS for venous thrombosis, systemic embolization; TREATMENT for venous thrombosis and/or pulmonary embolus.HIGH RISK: Target INR is2.5-3.5 for patients wiht mechanical heart valves.[id number] 14:17:00 Test Item Value Reference Range Comments FIBRINOGEN LEVEL (BEAKER) (test code = 658) 304 mg/dl 225- 434 CBC (HEMOGRAM ONLY)2019-02-12 14:13:00 Test Item Value Reference Range Comments WHITE BLOOD CELL COUNT 5.0 K/ L 3.5-10.5 (BEAKER) (test code = 775) RED BLOOD CELL COUNT (BEAKER) 2.64 M/ L 4.63-6.08 (test code = 761) HEMOGLOBIN (BEAKER) (test code 9.0 GM/DL 13.7-17.5 = 410) HEMATOCRIT (BEAKER) (test code 27.0 % 40.1-51.0 = 411) MEAN CORPUSCULAR VOLUME 102.3 fL 79.0-92.2 (BEAKER) (test code = 753) MEAN CORPUSCULAR HEMOGLOBIN 34.1 pg 25.7-32.2 (BEAKER) (test code = 751) MEAN CORPUSCULAR HEMOGLOBIN 33.3 GM/DL 32.3-36.5 CONC (BEAKER) (test code = 752) RED CELL DISTRIBUTION WIDTH % 11.6-14.4 Unab le to report due to (BEAKER) (test code = 412) abnor mal Platelet population distr ibution. PLATELET COUNT (BEAKER) (test 146 K/CU MM 150-450 code = 756) MEAN PLATELET VOLUME (BEAKER) 10.0 fL 9.4-12.4 (test code = 754) NUCLEATED RED BLOOD CELLS 1 /100 WBC 0-0 (BEAKER) (test code = 413) CBC W/PLT COUNT & AUTO [id number] 05:36:00 Test Item Value Reference Range Comments WHITE BLOOD CELL COUNT (BEAKER) (test code = 3.1 K/ L 3.5 -10.5 775) RED BLOOD CELL COUNT (BEAKER) (test code = 761) 3.39 M/ L 4.63-6.08 HEMOGLOBIN (BEAKER) (test code = 410) 11.5 GM/DL 13.7-17.5 HEMATOCRIT (BEAKER) (test code = 411) 33.7 % 40.1-51.0 MEAN CORPUSCULAR VOLUME (BEAKER) (test code = 99.4 fL 79 .0-92.2 753) MEAN CORPUSCULAR HEMOGLOBIN (BEAKER) (test code 33.9 pg 25.7-32.2 = 751) MEAN CORPUSCULAR HEMOGLOBIN CONC (BEAKER) (test 34.1 GM/DL 32.3-36.5 code = 752) RED CELL DISTRIBUTION WIDTH (BEAKER) (test code 12.8 % 11.6-14.4 = 412) PLATELET COUNT (BEAKER) (test code = 756) 130 K/CU MM 150-45 0 MEAN PLATELET VOLUME (BEAKER) (test code = 754) 10.4 fL 9.4-12.4 NUCLEATED RED BLOOD CELLS (BEAKER) (test code = 0 /100 WBC 0-0 413) NEUTROPHILS RELATIVE PERCENT (BEAKER) (test code 51 % = 429) LYMPHOCYTES RELATIVE PERCENT (BEAKER) (test code 31 % = 430) MONOCYTES RELATIVE PERCENT (BEAKER) (test code = 12 % 431) EOSINOPHILS RELATIVE PERCENT (BEAKER) (test code 4 % = 432) BASOPHILS RELATIVE PERCENT (BEAKER) (test code = 1 % 437) NEUTROPHILS ABSOLUTE COUNT (BEAKER) (test code = 1.61 K/ L 1.78-5.38 670) LYMPHOCYTES ABSOLUTE COUNT (BEAKER) (test code = 0.98 K/ L 1.32-3.57 414) MONOCYTES ABSOLUTE COUNT (BEAKER) (test code = 0.38 K/ L 0 .30-0.82 415) EOSINOPHILS ABSOLUTE COUNT (BEAKER) (test code = 0.11 K/ L 0.04-0.54 416) BASOPHILS ABSOLUTE COUNT (BEAKER) (test code = 0.04 K/ L 0 .01-0.08 417) IMMATURE GRANULOCYTES-RELATIVE PERCENT (BEAKER) 1 % 0-1 (test code = 2801) MR, ABDOMEN, [id number] 13:31:00FINAL REPORT MRCP, MRI of abdomen without [...] Is amenable to follow-up. Hepatosplenomegaly. Severe hepatic stea tosis. No biliary ductal dilatation. No cholelithiasis or choledocholithiasis identified. Trace ascites. Signed: Korin Reyes MDReport Verified Date/Time: 12/12/2018 13:31:00 Reading Location: [facility] B1 [id number] CT Body Reading Room COMPREHENSIVE METABOLIC [id number] 09:56:00 Test Item Value Reference Range Comments TOTAL PROTEIN (BEAKER) 5.5 gm/dL 6.0-8.3 (test code = 770) ALBUMIN (BEAKER) (test 3.1 g/dL 3.5-5.0 code = 1145) ALKALINE PHOSPHATASE 116 U/L 40-150 (BEAKER) (test code = 346) BILIRUBIN TOTAL (BEAKER) 1.9 mg/dL 0.2-1.2 (test code = 377) SODIUM (BEAKER) (test code 139 meq/L 136-145 = 381) POTASSIUM (BEAKER) (test 3.0 meq/L 3.5-5.1 code = 379) CHLORIDE (BEAKER) (test 107 meq/L 98-107 code = 382) CO2 (BEAKER) (test code = 23 meq/L 22-29 355) BLOOD UREA NITROGEN 4 mg/dL 7-21 (BEAKER) (test code = 354) CREATININE (BEAKER) (test 0.56 mg/dL 0.57-1.25 code = 358) GLUCOSE RANDOM (BEAKER) 116 mg/dL 70-105 (test code = 652) CALCIUM (BEAKER) (test 7.4 mg/dL 8.4-10.2 code = 697) AST (SGOT) (BEAKER) (test 297 U/L 5-34 code = 353) ALT (SGPT) (BEAKER) (test 173 U/L 6-55 code = 347) EGFR (BEAKER) (test code = 169 mL/min/1.73 sq ES TIMATED GFR IS NOT 1092) m ACCURATE CREA TININE CLEARANCE IN PRE DICTING GLOMERULAR FILTR ATION RATE. ESTIMATED GFR IS NOT APPLICABLE F OR DIALYSIS PATIENT S. CBC W/PLT COUNT & AUTO [id number] 04:42:00 Test Item Value Reference Range Comments WHITE BLOOD CELL COUNT (BEAKER) (test code = 775) 3.1 K/ L 3.5-10.5 RED BLOOD CELL COUNT (BEAKER) (test code = 761) 3.09 M/ L 4.63-6.08 HEMOGLOBIN (BEAKER) (test code = 410) 10.7 GM/DL 13.7-17.5 HEMATOCRIT (BEAKER) (test code = 411) 30.5 % 40.1-51.0 MEAN CORPUSCULAR VOLUME (BEAKER) (test code = 98.7 fL 79 .0-92.2 753) MEAN CORPUSCULAR HEMOGLOBIN (BEAKER) (test code = 34.6 pg 25.7-32.2 751) MEAN CORPUSCULAR HEMOGLOBIN CONC (BEAKER) (test 35.1 GM/DL 32.3-36.5 code = 752) RED CELL DISTRIBUTION WIDTH (BEAKER) (test code = 12.4 % 11.6-14.4 412) PLATELET COUNT (BEAKER) (test code = 756) 99 K/CU MM 150-45 0 MEAN PLATELET VOLUME (BEAKER) (test code = 754) 11.0 fL 9.4-12.4 NUCLEATED RED BLOOD CELLS (BEAKER) (test code = 0 /100 WBC 0-0 413) NEUTROPHILS RELATIVE PERCENT (BEAKER) (test code 60 % = 429) LYMPHOCYTES RELATIVE PERCENT (BEAKER) (test code 26 % = 430) MONOCYTES RELATIVE PERCENT (BEAKER) (test code = 11 % 431) EOSINOPHILS RELATIVE PERCENT (BEAKER) (test code 2 % = 432) BASOPHILS RELATIVE PERCENT (BEAKER) (test code = 1 % 437) NEUTROPHILS ABSOLUTE COUNT (BEAKER) (test code = 1.84 K/ L 1.78-5.38 670) LYMPHOCYTES ABSOLUTE COUNT (BEAKER) (test code = 0.81 K/ L 1.32-3.57 414) MONOCYTES ABSOLUTE COUNT (BEAKER) (test code = 0.34 K/ L 0 .30-0.82 415) EOSINOPHILS ABSOLUTE COUNT (BEAKER) (test code = 0.06 K/ L 0.04-0.54 416) BASOPHILS ABSOLUTE COUNT (BEAKER) (test code = 0.03 K/ L 0 .01-0.08 417) IMMATURE GRANULOCYTES-RELATIVE PERCENT (BEAKER) 0 % 0-1 (test code = 2801) FL, ESOPH, SWALLOW FUNCTION, WITH CINE OR [id number] 12:02:00Reason for exam:->pneumomediastinum, rule out esophageal perforationFINAL [...] Signed: Heriberto Christensen MDReport Verified Date/Time: 12/11/2018 12:02:17 Reading Location: [facility] B1 [id number] Ortho Consult Reading Room BASI METABOLIC PANEL 2018-12-11 07:31:00 Test Item Value Reference Range Comments SODIUM (BEAKER) (test 139 meq/L 136-145 code = 381) POTASSIUM (BEAKER) (test 3.4 meq/L 3.5-5.1 Specime n slightly code = 379) hemolyzed CHLORIDE (BEAKER) (test 103 meq/L 98-107 code = 382) CO2 (BEAKER) (test code = 20 meq/L 22-29 355) BLOOD UREA NITROGEN 18 mg/dL 7-21 (BEAKER) (test code = 354) CREATININE (BEAKER) (test 0.73 mg/dL 0.57-1.25 Specim en slightly code = 358) hemolyzed GLUCOSE RANDOM (BEAKER) 67 mg/dL 70-105 (test code = 652) CALCIUM (BEAKER) (test 8.6 mg/dL 8.4-10.2 code = 697) EGFR (BEAKER) (test code 125 mL/min/1.73 sq m ES TIMATED GFR IS NOT = 1092) ACCURATE CREA TININE CLEARANCE IN PRE DICTING GLOMERULAR FILTR ATION RATE. ESTIMATED GFR IS NOT APPLICABLE F OR DIALYSIS PATIENT S. CBC W/PLT COUNT & AUTO [id number] 07:12:00 Test Item Value Reference Range Comments WHITE BLOOD CELL COUNT (BEAKER) (test code = 4.6 K/ L 3.5 -10.5 775) RED BLOOD CELL COUNT (BEAKER) (test code = 761) 3.19 M/ L 4.63-6.08 HEMOGLOBIN (BEAKER) (test code = 410) 11.1 GM/DL 13.7-17.5 HEMATOCRIT (BEAKER) (test code = 411) 31.0 % 40.1-51.0 MEAN CORPUSCULAR VOLUME (BEAKER) (test code = 97.2 fL 79 .0-92.2 753) MEAN CORPUSCULAR HEMOGLOBIN (BEAKER) (test code 34.8 pg 25.7-32.2 = 751) MEAN CORPUSCULAR HEMOGLOBIN CONC (BEAKER) (test 35.8 GM/DL 32.3-36.5 code = 752) RED CELL DISTRIBUTION WIDTH (BEAKER) (test code 13.0 % 11.6-14.4 = 412) PLATELET COUNT (BEAKER) (test code = 756) 103 K/CU MM 150-45 0 MEAN PLATELET VOLUME (BEAKER) (test code = 754) 11.0 fL 9.4-12.4 NUCLEATED RED BLOOD CELLS (BEAKER) (test code = 0 /100 WBC 0-0 413) NEUTROPHILS RELATIVE PERCENT (BEAKER) (test code 73 % = 429) LYMPHOCYTES RELATIVE PERCENT (BEAKER) (test code 16 % = 430) MONOCYTES RELATIVE PERCENT (BEAKER) (test code = 9 % 431) EOSINOPHILS RELATIVE PERCENT (BEAKER) (test code 1 % = 432) BASOPHILS RELATIVE PERCENT (BEAKER) (test code = 0 % 437) NEUTROPHILS ABSOLUTE COUNT (BEAKER) (test code = 3.36 K/ L 1.78-5.38 670) LYMPHOCYTES ABSOLUTE COUNT (BEAKER) (test code = 0.75 K/ L 1.32-3.57 414) MONOCYTES ABSOLUTE COUNT (BEAKER) (test code = 0.41 K/ L 0 .30-0.82 415) EOSINOPHILS ABSOLUTE COUNT (BEAKER) (test code = 0.04 K/ L 0.04-0.54 416) BASOPHILS ABSOLUTE COUNT (BEAKER) (test code = 0.02 K/ L 0 .01-0.08 417) IMMATURE GRANULOCYTES-RELATIVE PERCENT (BEAKER) 1 % 0-1 (test code = 2801) RAD, CHEST, 1 VIEW, NON [id number] 20:13:00Reason for exam:- >pneumomediastinumShould this be performed at the bedside?->YesFINAL REPORT [...] bony abnormality. Signed: Tan Mcmanus MDReport Verified Date/Time: 12/10/2018 20:13:39 Reading Location: [address] Reading Room [id number] 19:12:00 Test Item Value Reference Range Comments MAGNESIUM (BEAKER) (test code = 1.8 mg/dL 1.6-2.6 Specimen slightly hemolyzed 627) COMPREHENSIVE METABOLIC [id number] 19:12:00 Test Item Value Reference Range Comments TOTAL PROTEIN (BEAKER) 6.3 gm/dL 6.0-8.3 Specimen slightly (test code = 770) hemolyzed ALBUMIN (BEAKER) (test 3.7 g/dL 3.5-5.0 Specimen slightly code = 1145) hemolyzed ALKALINE PHOSPHATASE 129 U/L 40-150 (BEAKER) (test code = 346) BILIRUBIN TOTAL (BEAKER) 2.9 mg/dL 0.2-1.2 Specime n slightly (test code = 377) hemolyzed SODIUM (BEAKER) (test code 137 meq/L 136-145 = 381) POTASSIUM (BEAKER) (test 2.7 meq/L 3.5-5.1 Specime n slightly code = 379) hemolyzed CHLORIDE (BEAKER) (test 99 meq/L 98-107 code = 382) CO2 (BEAKER) (test code = 23 meq/L 22-29 355) BLOOD UREA NITROGEN 22 mg/dL 7-21 (BEAKER) (test code = 354) CREATININE (BEAKER) (test 1.28 mg/dL 0.57-1.25 Specim en slightly code = 358) hemolyzed GLUCOSE RANDOM (BEAKER) 78 mg/dL 70-105 (test code = 652) CALCIUM (BEAKER) (test 8.5 mg/dL 8.4-10.2 code = 697) AST (SGOT) (BEAKER) (test 502 U/L 5-34 Specim en slightly code = 353) hemolyzed ALT (SGPT) (BEAKER) (test 225 U/L 6-55 Specim en slightly code = 347) hemolyzed EGFR (BEAKER) (test code = 65 mL/min/1.73 sq m E STIMATED GFR IS NOT 1092) ACCURATE CREA TININE CLEARANCE IN PRE DICTING GLOMERULAR FILTR ATION RATE. ESTIMATED GFR IS NOT APPLICABLE F OR DIALYSIS PATIENT S. Specimen slightly ictericPROTHROMBIN [id number] 18:53:00 Test Item Value Reference Range Comments PROTIME (BEAKER) (test code = 759) 15.8 seconds 11.7-14.7 INR (BEAKER) (test code = 370) 1.3 <=5.9 RECOMMENDED COUMADIN/WARFARIN INR THERAPY RANGESSTANDARD DOSE: 2.0 - 3.0 Includes: PROPHYLAXIS forvenous thrombosis, systemic embolization; TREATMENT for venous thrombosis and/or pulmonary embolus.HIGH RISK: Target INR is 2.5-3.5 for patients with mechanical heart valves.CBC W/PLT COUNT & AUTO DIFFERENTIAL 2018-12-10 18:49:00 Test Item Value Reference Range Comments WHITE BLOOD CELL COUNT (BEAKER) (test code = 6.0 K/ L 3.5 -10.5 775) RED BLOOD CELL COUNT (BEAKER) (test code = 761) 3.44 M/ L 4.63-6.08 HEMOGLOBIN (BEAKER) (test code = 410) 11.6 GM/DL 13.7-17.5 HEMATOCRIT (BEAKER) (test code = 411) 34.1 % 40.1-51.0 MEAN CORPUSCULAR VOLUME (BEAKER) (test code = 99.1 fL 79 .0-92.2 753) MEAN CORPUSCULAR HEMOGLOBIN (BEAKER) (test code 33.7 pg 25.7-32.2 = 751) MEAN CORPUSCULAR HEMOGLOBIN CONC (BEAKER) (test 34.0 GM/DL 32.3-36.5 code = 752) RED CELL DISTRIBUTION WIDTH (BEAKER) (test code 13.1 % 11.6-14.4 = 412) PLATELET COUNT (BEAKER) (test code = 756) 109 K/CU MM 150-45 0 MEAN PLATELET VOLUME (BEAKER) (test code = 754) 11.0 fL 9.4-12.4 NUCLEATED RED BLOOD CELLS (BEAKER) (test code = 0 /100 WBC 0-0 413) NEUTROPHILS RELATIVE PERCENT (BEAKER) (test code 81 % = 429) LYMPHOCYTES RELATIVE PERCENT (BEAKER) (test code 12 % = 430) MONOCYTES RELATIVE PERCENT (BEAKER) (test code = 7 % 431) EOSINOPHILS RELATIVE PERCENT (BEAKER) (test code 0 % = 432) BASOPHILS RELATIVE PERCENT (BEAKER) (test code = 0 % 437) NEUTROPHILS ABSOLUTE COUNT (BEAKER) (test code = 4.84 K/ L 1.78-5.38 670) LYMPHOCYTES ABSOLUTE COUNT (BEAKER) (test code = 0.72 K/ L 1.32-3.57 414) MONOCYTES ABSOLUTE COUNT (BEAKER) (test code = 0.41 K/ L 0 .30-0.82 415) EOSINOPHILS ABSOLUTE COUNT (BEAKER) (test code = 0.01 K/ L 0.04-0.54 416) BASOPHILS ABSOLUTE COUNT (BEAKER) (test code = 0.02 K/ L 0 .01-0.08 417) IMMATURE GRANULOCYTES-RELATIVE PERCENT (BEAKER) 0 % 0-1 (test code = 2801) BLOOD [id number] 20:01:00 Test Item Value Reference Range Comments CULTURE (BEAKER) (test code = 1095) No growth in 5 days BLOOD [id number] 20:01:00 Test Item Value Reference Range Comments CULTURE (BEAKER) (test code = 1095) No growth in 5 days RAD, CHEST, 1 VIEW, NON [id number] 13:13:00Reason for exam:->evalute for pneumoniaShould this be performed at the bedside?->YesAddendum BeginsREPORT STATUS:A Addendum:Clinical diagnosis alcohol withdrawal syndrome, electrolyte disturbances, elevated liver function tests, pneumonia, Signed: Marilu Sharpe Verified Date/Time: 11/01/2018 13:13:23 Reading Location: [facility] C013 Consult Reading RoomAddendum EndsFINAL REPORT Chest radiograph Clinical History: Evaluate for pneumo niaComparison: No comparisonViews: One Chest x-ray:The cardiac and mediastinal silhouettes are unremarkable. There is no evidence of a pneumothorax. There is no evidence of a pleural effusion. There is no evidence of overt cardiac failure. The visible regional skeleton is intact. There is no evidence of a focal parenchymal opacity. Impression:No active cardiopulmonary disease. Signed: Marilu Sharpe Verified Date/Time: 10/28/2018 15:36:38 Reading Location: [facility] C013W Consult Reading Room U/S, ABDOMINAL, WITH [id number] 10:43:00Reason for exam:->evaluate for portal hypertension, cirrhosis, [...] vein: The portal vein measures 11 mm. Pa ncreas: The pancreatic tail is not well seen [...] confluence is patent and demonstrates hepatopedal flow. Impression:Hepatomegaly with heterogeneous echogenicity of the liver.No evidence of gallbladder distention or cholelithiasis. The common bile duct is minimally prominent at 8 mm.Unremarkable abdominal Dopplerultrasound. Signed: Marilu Sharpe MDReport Verified Date/Time: 10/31/2018 10:43:58 Reading Location: [facility] [id number] Ultrasound Reading Room COMPREHENSIVE METABOLIC [id number] 06:57:00 Test Item Value Reference Range Comments TOTAL PROTEIN (BEAKER) 6.3 gm/dL 6.0-8.3 (test code = 770) ALBUMIN (BEAKER) (test 3.4 g/dL 3.5-5.0 code = 1145) ALKALINE PHOSPHATASE 165 U/L 40-150 (BEAKER) (test code = 346) BILIRUBIN TOTAL (BEAKER) 0.6 mg/dL 0.2-1.2 (test code = 377) SODIUM (BEAKER) (test code 140 meq/L 136-145 = 381) POTASSIUM (BEAKER) (test 3.6 meq/L 3.5-5.1 code = 379) CHLORIDE (BEAKER) (test 102 meq/L 98-107 code = 382) CO2 (BEAKER) (test code = 29 meq/L 22-29 355) BLOOD UREA NITROGEN 3 mg/dL 7-21 (BEAKER) (test code = 354) CREATININE (BEAKER) (test 0.55 mg/dL 0.57-1.25 code = 358) GLUCOSE RANDOM (BEAKER) 89 mg/dL 70-105 (test code = 652) CALCIUM (BEAKER) (test 9.2 mg/dL 8.4-10.2 code = 697) AST (SGOT) (BEAKER) (test 184 U/L 5-34 code = 353) ALT (SGPT) (BEAKER) (test 156 U/L 6-55 code = 347) EGFR (BEAKER) (test code = 173 mL/min/1.73 sq ES TIMATED GFR IS NOT 1092) m ACCURATE CREA TININE CLEARANCE IN PRE DICTING GLOMERULAR FILTR ATION RATE. ESTIMATED GFR IS NOT APPLICABLE F OR DIALYSIS PATIENT S. HEMOGLOBIN [id number] 09:30:00 Test Item Value Reference Range Comments HEMOGLOBIN A1C (BEAKER) (test code = 368) 4.9 % 4.3-6. 1 COMPREHENSIVE METABOLIC [id number] 05:17:00 Test Item Value Reference Range Comments TOTAL PROTEIN (BEAKER) 6.5 gm/dL 6.0-8.3 (test code = 770) ALBUMIN (BEAKER) (test 3.6 g/dL 3.5-5.0 code = 1145) ALKALINE PHOSPHATASE 170 U/L 40-150 (BEAKER) (test code = 346) BILIRUBIN TOTAL (BEAKER) 0.9 mg/dL 0.2-1.2 (test code = 377) SODIUM (BEAKER) (test code 141 meq/L 136-145 = 381) POTASSIUM (BEAKER) (test 3.5 meq/L 3.5-5.1 code = 379) CHLORIDE (BEAKER) (test 104 meq/L 98-107 code = 382) CO2 (BEAKER) (test code = 26 meq/L 22-29 355) BLOOD UREA NITROGEN 4 mg/dL 7-21 (BEAKER) (test code = 354) CREATININE (BEAKER) (test 0.55 mg/dL 0.57-1.25 code = 358) GLUCOSE RANDOM (BEAKER) 89 mg/dL 70-105 (test code = 652) CALCIUM (BEAKER) (test 9.3 mg/dL 8.4-10.2 code = 697) AST (SGOT) (BEAKER) (test 167 U/L 5-34 code = 353) ALT (SGPT) (BEAKER) (test 156 U/L 6-55 code = 347) EGFR (BEAKER) (test code = 173 mL/min/1.73 sq ES TIMATED GFR IS NOT 1092) m ACCURATE CREA TININE CLEARANCE IN PRE DICTING GLOMERULAR FILTR ATION RATE. ESTIMATED GFR IS NOT APPLICABLE F OR DIALYSIS PATIENT S. CBC W/PLT COUNT & AUTO [id number] 04:53:00 Test Item Value Reference Range Comments WHITE BLOOD CELL COUNT (BEAKER) (test code = 3.4 K/ L 3.5 -10.5 775) RED BLOOD CELL COUNT (BEAKER) (test code = 761) 3.45 M/ L 4.63-6.08 HEMOGLOBIN (BEAKER) (test code = 410) 11.8 GM/DL 13.7-17.5 HEMATOCRIT (BEAKER) (test code = 411) 34.4 % 40.1-51.0 MEAN CORPUSCULAR VOLUME (BEAKER) (test code = 99.7 fL 79 .0-92.2 753) MEAN CORPUSCULAR HEMOGLOBIN (BEAKER) (test code 34.2 pg 25.7-32.2 = 751) MEAN CORPUSCULAR HEMOGLOBIN CONC (BEAKER) (test 34.3 GM/DL 32.3-36.5 code = 752) RED CELL DISTRIBUTION WIDTH (BEAKER) (test code 12.2 % 11.6-14.4 = 412) PLATELET COUNT (BEAKER) (test code = 756) 175 K/CU MM 150-45 0 MEAN PLATELET VOLUME (BEAKER) (test code = 754) 10.3 fL 9.4-12.4 NUCLEATED RED BLOOD CELLS (BEAKER) (test code = 0 /100 WBC 0-0 413) NEUTROPHILS RELATIVE PERCENT (BEAKER) (test code 55 % = 429) LYMPHOCYTES RELATIVE PERCENT (BEAKER) (test code 30 % = 430) MONOCYTES RELATIVE PERCENT (BEAKER) (test code = 11 % 431) EOSINOPHILS RELATIVE PERCENT (BEAKER) (test code 3 % = 432) BASOPHILS RELATIVE PERCENT (BEAKER) (test code = 1 % 437) NEUTROPHILS ABSOLUTE COUNT (BEAKER) (test code = 1.89 K/ L 1.78-5.38 670) LYMPHOCYTES ABSOLUTE COUNT (BEAKER) (test code = 1.03 K/ L 1.32-3.57 414) MONOCYTES ABSOLUTE COUNT (BEAKER) (test code = 0.39 K/ L 0 .30-0.82 415) EOSINOPHILS ABSOLUTE COUNT (BEAKER) (test code = 0.09 K/ L 0.04-0.54 416) BASOPHILS ABSOLUTE COUNT (BEAKER) (test code = 0.03 K/ L 0 .01-0.08 417) IMMATURE GRANULOCYTES-RELATIVE PERCENT (BEAKER) 0 % 0-1 (test code = 2801) LIPID [id number] 17:30:00 Test Item Value Reference Range Comments TRIGLYCERIDES (BEAKER) (test code = 540) 90 mg/dL CHOLESTEROL (BEAKER) (test code = 631) 140 mg/dL HDL CHOLESTEROL (BEAKER) (test code = 976) 37 mg/dL LDL CHOLESTEROL CALCULATED (BEAKER) (test code = 85 mg/dL 633) Triglyceride Reference Range: Low Risk <150 Borderline 150-199 High Risk 200-499 Very High Risk >=500Cholesterol Reference Range: Low Risk <200 Borderline 200-239 High Risk >240HDL Cholesterol Reference Range: Low Risk >=60 High Risk <40LDL Cholesterol Reference Range: Optimal <100 Near Optimal 100-129 Borderline 130-159 High 160-189 Very High >=190HEPATITIS C PCR, [id number] 14:57:00 Test Item Value Reference Range Comments HCV RESULT COMPONENT (BEAKER) HCV RNA not detected HCV RNA not d etected (test code = 2699) This test uses a Real-Time Polymerase Chain Reaction (RT-PCR) methodology and was performed using MAR[employer]O Ampliprep/MARIANO TaqMan HCV test kit version 2.0 ([employer]).Reportable range for this assay is 15 - 100,000,000 IU per mL (1.18 - 8.00 Log IU/mL).RAD, ABDOMEN/KUB, 1 VIEW AP 2018-10-29 14:17:00Reason for exam:->abd distensionFINAL REPORT TECHNIQUE: Supine radiographs of the abdomen dated 10/29/2018. HISTORY: Abdominal distention. COMPARISON: None IMPRESSION:No air-filled, dilated loops of bowel to suggest obstruction. No free intraperitoneal air. No abnormal soft tissue mass or calcification. Signed:Nancy Concepcioneport Verified Date/Time: 10/29/2018 14:17:17 Reading Location: [facility] Radiology Reading Room RPR 2018-10-29 13:28:00 Test Item Value Reference Range Comments RPR SCREEN (BEAKER) (test code = 420) Nonreactive Nonreactiv e [id number] 05:12:00 Test Item Value Reference Range Comments PHOSPHORUS (BEAKER) (test code = 604) 2.5 mg/dL 2.3-4.7 COMPREHENSIVE METABOLIC [id number] 05:12:00 Test Item Value Reference Range Comments TOTAL PROTEIN (BEAKER) 6.9 gm/dL 6.0-8.3 (test code = 770) ALBUMIN (BEAKER) (test 3.9 g/dL 3.5-5.0 code = 1145) ALKALINE PHOSPHATASE 200 U/L 40-150 (BEAKER) (test code = 346) BILIRUBIN TOTAL (BEAKER) 1.2 mg/dL 0.2-1.2 (test code = 377) SODIUM (BEAKER) (test code 137 meq/L 136-145 = 381) POTASSIUM (BEAKER) (test 3.3 meq/L 3.5-5.1 code = 379) CHLORIDE (BEAKER) (test 97 meq/L 98-107 code = 382) CO2 (BEAKER) (test code = 27 meq/L 22-29 355) BLOOD UREA NITROGEN 3 mg/dL 7-21 (BEAKER) (test code = 354) CREATININE (BEAKER) (test 0.57 mg/dL 0.57-1.25 code = 358) GLUCOSE RANDOM (BEAKER) 108 mg/dL 70-105 (test code = 652) CALCIUM (BEAKER) (test 9.4 mg/dL 8.4-10.2 code = 697) AST (SGOT) (BEAKER) (test 263 U/L 5-34 code = 353) ALT (SGPT) (BEAKER) (test 215 U/L 6-55 code = 347) EGFR (BEAKER) (test code = 166 mL/min/1.73 sq ES TIMATED GFR IS NOT 1092) m ACCURATE CREA TININE CLEARANCE IN PRE DICTING GLOMERULAR FILTR ATION RATE. ESTIMATED GFR IS NOT APPLICABLE F OR DIALYSIS PATIENT S. PROTHROMBIN [id number] 04:53:00 Test Item Value Reference Range Comments PROTIME (BEAKER) (test code = 759) 16.0 seconds 11.7-14.7 INR (BEAKER) (test code = 370) 1.3 <=5.9 RECOMMENDED COUMADIN/WARFARIN INR THERAPY RANGESSTANDARD DOSE: 2.0 - 3.0 Includes: PROPHYLAXIS forvenous thrombosis, systemic embolization; TREATMENT for venous thrombosis and/or pulmonary embolus.HIGH RISK: Target INR is 2.5-3.5 for patients with mechanical heart valves.URINALYSIS W/ REFLEX URINE CULTURE 2018-10-28 18:43:00 Test Item Value Reference Range Comments COLOR (BEAKER) (test code = 470) Yellow CLARITY (BEAKER) (test code = 469) Clear SPECIFIC GRAVITY UA (BEAKER) (test code = 468) 1.007 1 .001-1.035 PH UA (BEAKER) (test code = 467) 7.5 5.0-8.0 PROTEIN UA (BEAKER) (test code = 464) 20 mg/dL Negative GLUCOSE UA (BEAKER) (test code = 365) Negative Negative KETONES UA (BEAKER) (test code = 371) 20 mg/dL Negative BILIRUBIN UA (BEAKER) (test code = 462) Negative Negative BLOOD UA (BEAKER) (test code = 461) Trace Negative NITRITE UA (BEAKER) (test code = 465) Negative Negative LEUKOCYTE ESTERASE UA (BEAKER) (test code = 466) Negative Negative UROBILINOGEN UA (BEAKER) (test code = 463) 2.0 mg/dL 0.2-1 .0 RBC UA (BEAKER) (test code = 519) 3 /HPF WBC UA (BEAKER) (test code = 520) < /HPF MUCUS (BEAKER) (test code = 1574) Rare SOURCE(BEAKER) (test code = 2795) VITAMIN B12 AND [id number] 15:08:00 Test Item Value Reference Range Comments VITAMIN B12 (BEAKER) (test code = 774) 1678 pg/mL 213-816 FOLATE (BEAKER) (test code = 362) 19.4 ng/mL >=7.0 [id number] 14:48:00 Test Item Value Reference Range Comments FERRITIN (BEAKER) (test code = 361) 1698 ng/mL 5-275 IRON, TIBC, % SAT. (WITHOUT FERRITIN)2018-10-28 13:26:00 Test Item Value Reference Range Comments IRON (BEAKER) (test code = 547) 44.0 ug/dL 40.0-160.0 TOTAL IRON BINDING CAPACITY (BEAKER) (test code = 186 ug/dL 250-450 769) IRON % SATURATION (2) (BEAKER) (test code = 2590) 24 % 20-55 HEPATITIS B SURFACE [id number] 13:26:00 Test Item Value Reference Range Comments HEPATITIS B SURFACE ANTIGEN (2) (BEAKER) (test Nonreactive N onreactive code = 2585) HEPATITIS C [id number] 13:26:00 Test Item Value Reference Range Comments HEPATITIS C ANTIBODY (BEAKER) (test code = 367) Nonreactive Nonreactive HIV-1 ANTIGEN WITH HIV-1/2 [id number] 13:26:00 Test Item Value Reference Range Comments HIV-1 ANTIGEN WITH HIV 1\T\2 ANTIBODY (2) Nonreactive Nonrea ctive (BEAKER) (test code = 2586) HEPATITIS B SURFACE [id number] 13:19:00 Test Item Value Reference Range Comments HEPATITIS B SURFACE ANTIBODY (BEAKER) (test code 34.5 mIU/mL <8.0 = 647) HEPATITIS A ANTIBODY, [id number] 13:19:00 Test Item Value Reference Range Comments HEPATITIS A IGM ANTIBODY (BEAKER) (test code = Nonreactive N onreactive 498) HEPATITIS B CORE ANTIBODY, [id number] 13:19:00 Test Item Value Reference Range Comments HEPATITIS B CORE TOTAL ANTIBODY (BEAKER) (test Nonreactive N onreactive code = 497) HEPATITIS A ANTIBODY, [id number] 13:19:00 Test Item Value Reference Range Comments HEPATITIS A IGG ANTIBODY (BEAKER) (test code = Nonreactive N onreactive 2797) PROTHROMBIN [id number] 13:00:00 Test Item Value Reference Range Comments PROTIME (BEAKER) (test code = 759) 15.5 seconds 11.7-14.7 INR (BEAKER) (test code = 370) 1.2 <=5.9 RECOMMENDED COUMADIN/WARFARIN INR THERAPY RANGESSTANDARD DOSE: 2.0 - 3.0 Includes: PROPHYLAXIS forvenous thrombosis, systemic embolization; TREATMENT for venous thrombosis and/or pulmonary embolus.HIGH RISK: Target INR is 2.5-3.5 for patients with mechanical heart valves.[id number] 03:31:00 Test Item Value Reference Range Comments PHOSPHORUS (BEAKER) (test code = 604) 3.5 mg/dL 2.3-4.7 [id number] 03:31:00 Test Item Value Reference Range Comments MAGNESIUM (BEAKER) (test code = 627) 1.5 mg/dL 1.6-2.6 COMPREHENSIVE METABOLIC [id number] 03:31:00 Test Item Value Reference Range Comments TOTAL PROTEIN (BEAKER) 6.5 gm/dL 6.0-8.3 (test code = 770) ALBUMIN (BEAKER) (test 3.7 g/dL 3.5-5.0 code = 1145) ALKALINE PHOSPHATASE 200 U/L 40-150 (BEAKER) (test code = 346) BILIRUBIN TOTAL (BEAKER) 0.8 mg/dL 0.2-1.2 (test code = 377) SODIUM (BEAKER) (test code 142 meq/L 136-145 = 381) POTASSIUM (BEAKER) (test 3.1 meq/L 3.5-5.1 code = 379) CHLORIDE (BEAKER) (test 103 meq/L 98-107 code = 382) CO2 (BEAKER) (test code = 24 meq/L 22-29 355) BLOOD UREA NITROGEN 4 mg/dL 7-21 (BEAKER) (test code = 354) CREATININE (BEAKER) (test 0.55 mg/dL 0.57-1.25 code = 358) GLUCOSE RANDOM (BEAKER) 100 mg/dL 70-105 (test code = 652) CALCIUM (BEAKER) (test 8.5 mg/dL 8.4-10.2 code = 697) AST (SGOT) (BEAKER) (test 318 U/L 5-34 code = 353) ALT (SGPT) (BEAKER) (test 244 U/L 6-55 code = 347) EGFR (BEAKER) (test code = 173 mL/min/1.73 sq ES TIMATED GFR IS NOT 1092) m ACCURATE CREA TININE CLEARANCE IN PRE DICTING GLOMERULAR FILTR ATION RATE. ESTIMATED GFR IS NOT APPLICABLE F OR DIALYSIS PATIENT S. CBC W/PLT COUNT & AUTO [id number] 03:03:00 Test Item Value Reference Range Comments WHITE BLOOD CELL COUNT (BEAKER) (test code = 4.2 K/ L 3.5 -10.5 775) RED BLOOD CELL COUNT (BEAKER) (test code = 761) 3.61 M/ L 4.63-6.08 HEMOGLOBIN (BEAKER) (test code = 410) 12.3 GM/DL 13.7-17.5 HEMATOCRIT (BEAKER) (test code = 411) 35.9 % 40.1-51.0 MEAN CORPUSCULAR VOLUME (BEAKER) (test code = 99.4 fL 79 .0-92.2 753) MEAN CORPUSCULAR HEMOGLOBIN (BEAKER) (test code 34.1 pg 25.7-32.2 = 751) MEAN CORPUSCULAR HEMOGLOBIN CONC (BEAKER) (test 34.3 GM/DL 32.3-36.5 code = 752) RED CELL DISTRIBUTION WIDTH (BEAKER) (test code 12.3 % 11.6-14.4 = 412) PLATELET COUNT (BEAKER) (test code = 756) 122 K/CU MM 150-45 0 MEAN PLATELET VOLUME (BEAKER) (test code = 754) 9.8 fL 9.4-12.4 NUCLEATED RED BLOOD CELLS (BEAKER) (test code = 0 /100 WBC 0-0 413) NEUTROPHILS RELATIVE PERCENT (BEAKER) (test code 70 % = 429) LYMPHOCYTES RELATIVE PERCENT (BEAKER) (test code 17 % = 430) MONOCYTES RELATIVE PERCENT (BEAKER) (test code = 11 % 431) EOSINOPHILS RELATIVE PERCENT (BEAKER) (test code 1 % = 432) BASOPHILS RELATIVE PERCENT (BEAKER) (test code = 1 % 437) NEUTROPHILS ABSOLUTE COUNT (BEAKER) (test code = 2.94 K/ L 1.78-5.38 670) LYMPHOCYTES ABSOLUTE COUNT (BEAKER) (test code = 0.73 K/ L 1.32-3.57 414) MONOCYTES ABSOLUTE COUNT (BEAKER) (test code = 0.45 K/ L 0 .30-0.82 415) EOSINOPHILS ABSOLUTE COUNT (BEAKER) (test code = 0.04 K/ L 0.04-0.54 416) BASOPHILS ABSOLUTE COUNT (BEAKER) (test code = 0.02 K/ L 0 .01-0.08 417) IMMATURE GRANULOCYTES-RELATIVE PERCENT (BEAKER) 1 % 0-1 (test code = 2801) POCT-GLUCOSE [id number] 12:15:00 Test Item Value Reference Range Comments POC-GLUCOSE METER (BEAKER) 99 mg/dL 70-110 TESTE D AT [facility] [address] (test code = 1538) [place] [address] [id number] 06:15:00 Test Item Value Reference Range Comments MAGNESIUM (BEAKER) (test code = 627) 1.8 mg/dL 1.6-2.6 COMPREHENSIVE METABOLIC [id number] 06:15:00 Test Item Value Reference Range Comments TOTAL PROTEIN (BEAKER) 6.6 gm/dL 6.0-8.3 (test code = 770) ALBUMIN (BEAKER) (test 3.6 g/dL 3.5-5.0 code = 1145) ALKALINE PHOSPHATASE 149 U/L 40-150 (BEAKER) (test code = 346) BILIRUBIN TOTAL (BEAKER) 0.8 mg/dL 0.2-1.2 (test code = 377) SODIUM (BEAKER) (test code 135 meq/L 136-145 = 381) POTASSIUM (BEAKER) (test 3.6 meq/L 3.5-5.1 code = 379) CHLORIDE (BEAKER) (test 98 meq/L 98-107 code = 382) CO2 (BEAKER) (test code = 26 meq/L 22-29 355) BLOOD UREA NITROGEN 8 mg/dL 7-21 (BEAKER) (test code = 354) CREATININE (BEAKER) (test 0.57 mg/dL 0.57-1.25 code = 358) GLUCOSE RANDOM (BEAKER) 100 mg/dL 70-105 (test code = 652) CALCIUM (BEAKER) (test 9.5 mg/dL 8.4-10.2 code = 697) AST (SGOT) (BEAKER) (test 155 U/L 5-34 code = 353) ALT (SGPT) (BEAKER) (test 151 U/L 6-55 code = 347) EGFR (BEAKER) (test code = 166 mL/min/1.73 sq ES TIMATED GFR IS NOT 1092) m ACCURATE CREA TININE CLEARANCE IN PRE DICTING GLOMERULAR FILTR ATION RATE. ESTIMATED GFR IS NOT APPLICABLE F OR DIALYSIS PATIENT S. CBC W/PLT COUNT & AUTO [id number] 05:30:00 Test Item Value Reference Range Comments WHITE BLOOD CELL COUNT (BEAKER) (test code = 5.1 K/ L 3.5 -10.5 775) RED BLOOD CELL COUNT (BEAKER) (test code = 761) 3.81 M/ L 4.63-6.08 HEMOGLOBIN (BEAKER) (test code = 410) 13.1 GM/DL 13.7-17.5 HEMATOCRIT (BEAKER) (test code = 411) 37.6 % 40.1-51.0 MEAN CORPUSCULAR VOLUME (BEAKER) (test code = 98.7 fL 79 .0-92.2 753) MEAN CORPUSCULAR HEMOGLOBIN (BEAKER) (test code 34.4 pg 25.7-32.2 = 751) MEAN CORPUSCULAR HEMOGLOBIN CONC (BEAKER) (test 34.8 GM/DL 32.3-36.5 code = 752) RED CELL DISTRIBUTION WIDTH (BEAKER) (test code 11.5 % 11.6-14.4 = 412) PLATELET COUNT (BEAKER) (test code = 756) 152 K/CU MM 150-45 0 MEAN PLATELET VOLUME (BEAKER) (test code = 754) 10.2 fL 9.4-12.4 NUCLEATED RED BLOOD CELLS (BEAKER) (test code = 0 /100 WBC 0-0 413) NEUTROPHILS RELATIVE PERCENT (BEAKER) (test code 71 % = 429) LYMPHOCYTES RELATIVE PERCENT (BEAKER) (test code 14 % = 430) MONOCYTES RELATIVE PERCENT (BEAKER) (test code = 11 % 431) EOSINOPHILS RELATIVE PERCENT (BEAKER) (test code 2 % = 432) BASOPHILS RELATIVE PERCENT (BEAKER) (test code = 1 % 437) NEUTROPHILS ABSOLUTE COUNT (BEAKER) (test code = 3.66 K/ L 1.78-5.38 670) LYMPHOCYTES ABSOLUTE COUNT (BEAKER) (test code = 0.71 K/ L 1.32-3.57 414) MONOCYTES ABSOLUTE COUNT (BEAKER) (test code = 0.58 K/ L 0 .30-0.82 415) EOSINOPHILS ABSOLUTE COUNT (BEAKER) (test code = 0.10 K/ L 0.04-0.54 416) BASOPHILS ABSOLUTE COUNT (BEAKER) (test code = 0.04 K/ L 0 .01-0.08 417) IMMATURE GRANULOCYTES-RELATIVE PERCENT (BEAKER) 1 % 0-1 (test code = 2801) POCT-GLUCOSE [id number] 11:54:00 Test Item Value Reference Range Comments POC-GLUCOSE METER (BEAKER) 83 mg/dL 70-110 TESTE D AT [facility] [address] [facility] (test code = [facility]) [facility] [address] [id number] 05:54:00 Test Item Value Reference Range Comments PHOSPHORUS (BEAKER) (test code = 604) 2.3 mg/dL 2.3-4.7 [id number] 05:54:00 Test Item Value Reference Range Comments MAGNESIUM (BEAKER) (test code = 627) 2.0 mg/dL 1.6-2.6 COMPREHENSIVE METABOLIC [id number] 05:54:00 Test Item Value Reference Range Comments TOTAL PROTEIN (BEAKER) 6.0 gm/dL 6.0-8.3 (test code = 770) ALBUMIN (BEAKER) (test 3.2 g/dL 3.5-5.0 code = 1145) ALKALINE PHOSPHATASE 134 U/L 40-150 (BEAKER) (test code = 346) BILIRUBIN TOTAL (BEAKER) 1.1 mg/dL 0.2-1.2 (test code = 377) SODIUM (BEAKER) (test code 134 meq/L 136-145 = 381) POTASSIUM (BEAKER) (test 3.6 meq/L 3.5-5.1 code = 379) CHLORIDE (BEAKER) (test 100 meq/L 98-107 code = 382) CO2 (BEAKER) (test code = 26 meq/L 22-29 355) BLOOD UREA NITROGEN 4 mg/dL 7-21 (BEAKER) (test code = 354) CREATININE (BEAKER) (test 0.54 mg/dL 0.57-1.25 code = 358) GLUCOSE RANDOM (BEAKER) 141 mg/dL 70-105 (test code = 652) CALCIUM (BEAKER) (test 8.8 mg/dL 8.4-10.2 code = 697) AST (SGOT) (BEAKER) (test 183 U/L 5-34 code = 353) ALT (SGPT) (BEAKER) (test 149 U/L 6-55 code = 347) EGFR (BEAKER) (test code = 176 mL/min/1.73 sq ES TIMATED GFR IS NOT 1092) m ACCURATE CREA TININE CLEARANCE IN PRE DICTING GLOMERULAR FILTR ATION RATE. ESTIMATED GFR IS NOT APPLICABLE F OR DIALYSIS PATIENT S. LACTIC ACID, [id number] 05:35:00 Test Item Value Reference Range Comments LACTATE BLOOD VENOUS (2) (BEAKER) (test code = 1.0 mmol/L 0 .5-2.2 2872) CBC W/PLT COUNT & AUTO [id number] 05:23:00 Test Item Value Reference Range Comments WHITE BLOOD CELL COUNT (BEAKER) (test code = 5.0 K/ L 3.5 -10.5 775) RED BLOOD CELL COUNT (BEAKER) (test code = 761) 3.88 M/ L 4.63-6.08 HEMOGLOBIN (BEAKER) (test code = 410) 13.0 GM/DL 13.7-17.5 HEMATOCRIT (BEAKER) (test code = 411) 38.5 % 40.1-51.0 MEAN CORPUSCULAR VOLUME (BEAKER) (test code = 99.2 fL 79 .0-92.2 753) MEAN CORPUSCULAR HEMOGLOBIN (BEAKER) (test code 33.5 pg 25.7-32.2 = 751) MEAN CORPUSCULAR HEMOGLOBIN CONC (BEAKER) (test 33.8 GM/DL 32.3-36.5 code = 752) RED CELL DISTRIBUTION WIDTH (BEAKER) (test code 11.6 % 11.6-14.4 = 412) PLATELET COUNT (BEAKER) (test code = 756) 113 K/CU MM 150-45 0 MEAN PLATELET VOLUME (BEAKER) (test code = 754) 10.7 fL 9.4-12.4 NUCLEATED RED BLOOD CELLS (BEAKER) (test code = 0 /100 WBC 0-0 413) NEUTROPHILS RELATIVE PERCENT (BEAKER) (test code 72 % = 429) LYMPHOCYTES RELATIVE PERCENT (BEAKER) (test code 15 % = 430) MONOCYTES RELATIVE PERCENT (BEAKER) (test code = 10 % 431) EOSINOPHILS RELATIVE PERCENT (BEAKER) (test code 2 % = 432) BASOPHILS RELATIVE PERCENT (BEAKER) (test code = 1 % 437) NEUTROPHILS ABSOLUTE COUNT (BEAKER) (test code = 3.56 K/ L 1.78-5.38 670) LYMPHOCYTES ABSOLUTE COUNT (BEAKER) (test code = 0.76 K/ L 1.32-3.57 414) MONOCYTES ABSOLUTE COUNT (BEAKER) (test code = 0.49 K/ L 0 .30-0.82 415) EOSINOPHILS ABSOLUTE COUNT (BEAKER) (test code = 0.10 K/ L 0.04-0.54 416) BASOPHILS ABSOLUTE COUNT (BEAKER) (test code = 0.04 K/ L 0 .01-0.08 417) IMMATURE GRANULOCYTES-RELATIVE PERCENT (BEAKER) 1 % 0-1 (test code = 2801) POCT-GLUCOSE [id number] 18:44:00 Test Item Value Reference Range Comments POC-GLUCOSE METER (BEAKER) 100 mg/dL 70-110 TESTE D AT [facility] [address] (test code = 1538) [place] [address] [id number] 17:58:00 Test Item Value Reference Range Comments PHOSPHORUS (BEAKER) (test code = 604) 2.3 mg/dL 2.3-4.7 [id number] 17:58:00 Test Item Value Reference Range Comments MAGNESIUM (BEAKER) (test code = 627) 1.8 mg/dL 1.6-2.6 BASIC METABOLIC [id number] 17:58:00 Test Item Value Reference Range Comments SODIUM (BEAKER) (test 137 meq/L 136-145 code = 381) POTASSIUM (BEAKER) (test 3.6 meq/L 3.5-5.1 code = 379) CHLORIDE (BEAKER) (test 102 meq/L 98-107 code = 382) CO2 (BEAKER) (test code = 26 meq/L 22-29 355) BLOOD UREA NITROGEN 4 mg/dL 7-21 (BEAKER) (test code = 354) CREATININE (BEAKER) (test 0.54 mg/dL 0.57-1.25 code = 358) GLUCOSE RANDOM (BEAKER) 123 mg/dL 70-105 (test code = 652) CALCIUM (BEAKER) (test 8.7 mg/dL 8.4-10.2 code = 697) EGFR (BEAKER) (test code 177 mL/min/1.73 sq m ES TIMATED GFR IS NOT = 1092) ACCURATE CREA TININE CLEARANCE IN PRE DICTING GLOMERULAR FILTR ATION RATE. ESTIMATED GFR IS NOT APPLICABLE F OR DIALYSIS PATIENT S. [id number] 16:55:00 Test Item Value Reference Range Comments MAGNESIUM (BEAKER) (test code = 1.6 mg/dL 1.6-2.6 Specimen slightly hemolyzed 627) [id number] 16:55:00 Test Item Value Reference Range Comments PHOSPHORUS (BEAKER) (test code 2.3 mg/dL 2.3-4.7 S pecimen slightly hemolyzed = 604) BASIC METABOLIC [id number] 16:55:00 Test Item Value Reference Range Comments SODIUM (BEAKER) (test 138 meq/L 136-145 code = 381) POTASSIUM (BEAKER) (test 3.7 meq/L 3.5-5.1 Specime n slightly code = 379) hemolyzed CHLORIDE (BEAKER) (test 105 meq/L 98-107 code = 382) CO2 (BEAKER) (test code = 23 meq/L 22-29 355) BLOOD UREA NITROGEN 4 mg/dL 7-21 (BEAKER) (test code = 354) CREATININE (BEAKER) (test 0.51 mg/dL 0.57-1.25 Specim en slightly code = 358) hemolyzed GLUCOSE RANDOM (BEAKER) 99 mg/dL 70-105 (test code = 652) CALCIUM (BEAKER) (test 8.0 mg/dL 8.4-10.2 code = 697) EGFR (BEAKER) (test code 190 mL/min/1.73 sq m ES TIMATED GFR IS NOT = 1092) ACCURATE CREA TININE CLEARANCE IN PRE DICTING GLOMERULAR FILTR ATION RATE. ESTIMATED GFR IS NOT APPLICABLE F OR DIALYSIS PATIENT S. POCT-GLUCOSE [id number] 12:41:00 Test Item Value Reference Range Comments POC-GLUCOSE METER (BEAKER) 100 mg/dL 70-110 TESTE D AT [facility] [address] [facility] (test code = 1538) [place] [address] POCT-GLUCOSE [id number] 08:07:00 Test Item Value Reference Range Comments POC-GLUCOSE METER (BEAKER) 99 mg/dL 70-110 TESTE D AT [facility] [address] [facility] (test code = 1538) [place] [address] U/S, ABDOMINAL, [id number] 08:05:00Abdomen limited area? Add comment if clarification [...] be secondary to portal hypertension. Signed: Juan Giron Verified Date/Time: 09/30/2018 08:05:48 Reading Location: [address] Ultrasound Reading Room [id number] 07:23:00 Test Item Value Reference Range Comments PHOSPHORUS (BEAKER) (test code = 604) 1.2 mg/dL 2.3-4.7 [id number] 07:11:00 Test Item Value Reference Range Comments MAGNESIUM (BEAKER) (test code = 627) 2.3 mg/dL 1.6-2.6 COMPREHENSIVE METABOLIC [id number] 07:11:00 Test Item Value Reference Range Comments TOTAL PROTEIN (BEAKER) 5.8 gm/dL 6.0-8.3 (test code = 770) ALBUMIN (BEAKER) (test 3.1 g/dL 3.5-5.0 code = 1145) ALKALINE PHOSPHATASE 141 U/L 40-150 (BEAKER) (test code = 346) BILIRUBIN TOTAL (BEAKER) 1.1 mg/dL 0.2-1.2 (test code = 377) SODIUM (BEAKER) (test code 135 meq/L 136-145 = 381) POTASSIUM (BEAKER) (test 3.7 meq/L 3.5-5.1 code = 379) CHLORIDE (BEAKER) (test 104 meq/L 98-107 code = 382) CO2 (BEAKER) (test code = 24 meq/L 22-29 355) BLOOD UREA NITROGEN 5 mg/dL 7-21 (BEAKER) (test code = 354) CREATININE (BEAKER) (test 0.39 mg/dL 0.57-1.25 code = 358) GLUCOSE RANDOM (BEAKER) 114 mg/dL 70-105 (test code = 652) CALCIUM (BEAKER) (test 8.3 mg/dL 8.4-10.2 code = 697) AST (SGOT) (BEAKER) (test 354 U/L 5-34 code = 353) ALT (SGPT) (BEAKER) (test 188 U/L 6-55 code = 347) EGFR (BEAKER) (test code = 258 mL/min/1.73 sq ES TIMATED GFR IS NOT 1092) m ACCURATE CREA TININE CLEARANCE IN PRE DICTING GLOMERULAR FILTR ATION RATE. ESTIMATED GFR IS NOT APPLICABLE F OR DIALYSIS PATIENT S. LACTIC ACID, [id number] 04:07:00 Test Item Value Reference Range Comments LACTATE BLOOD VENOUS (2) 0.8 mmol/L 0.5-2.2 Specime n slightly hemolyzed (BEAKER) (test code = 2872) CBC W/PLT COUNT & AUTO [id number] 04:00:00 Test Item Value Reference Range Comments WHITE BLOOD CELL COUNT (BEAKER) (test code = 6.1 K/ L 3.5 -10.5 775) RED BLOOD CELL COUNT (BEAKER) (test code = 761) 3.87 M/ L 4.63-6.08 HEMOGLOBIN (BEAKER) (test code = 410) 13.3 GM/DL 13.7-17.5 HEMATOCRIT (BEAKER) (test code = 411) 39.1 % 40.1-51.0 MEAN CORPUSCULAR VOLUME (BEAKER) (test code = 101.0 fL 79 .0-92.2 753) MEAN CORPUSCULAR HEMOGLOBIN (BEAKER) (test code 34.4 pg 25.7-32.2 = 751) MEAN CORPUSCULAR HEMOGLOBIN CONC (BEAKER) (test 34.0 GM/DL 32.3-36.5 code = 752) RED CELL DISTRIBUTION WIDTH (BEAKER) (test code 12.1 % 11.6-14.4 = 412) PLATELET COUNT (BEAKER) (test code = 756) 105 K/CU MM 150-45 0 MEAN PLATELET VOLUME (BEAKER) (test code = 754) 10.4 fL 9.4-12.4 NUCLEATED RED BLOOD CELLS (BEAKER) (test code = 0 /100 WBC 0-0 413) NEUTROPHILS RELATIVE PERCENT (BEAKER) (test code 74 % = 429) LYMPHOCYTES RELATIVE PERCENT (BEAKER) (test code 14 % = 430) MONOCYTES RELATIVE PERCENT (BEAKER) (test code = 10 % 431) EOSINOPHILS RELATIVE PERCENT (BEAKER) (test code 1 % = 432) BASOPHILS RELATIVE PERCENT (BEAKER) (test code = 1 % 437) NEUTROPHILS ABSOLUTE COUNT (BEAKER) (test code = 4.52 K/ L 1.78-5.38 670) LYMPHOCYTES ABSOLUTE COUNT (BEAKER) (test code = 0.84 K/ L 1.32-3.57 414) MONOCYTES ABSOLUTE COUNT (BEAKER) (test code = 0.62 K/ L 0 .30-0.82 415) EOSINOPHILS ABSOLUTE COUNT (BEAKER) (test code = 0.06 K/ L 0.04-0.54 416) BASOPHILS ABSOLUTE COUNT (BEAKER) (test code = 0.03 K/ L 0 .01-0.08 417) IMMATURE GRANULOCYTES-RELATIVE PERCENT (BEAKER) 0 % 0-1 (test code = 2801) [id number] 01:32:00 Test Item Value Reference Range Comments PROCALCITONIN (BEAKER) (test code = 3036) 0.48 ng/mL <0.05 SEPSIS RISK (ng/mL)Low: 0.05-0.50Intermediate: 0.51-2.00High: >=2.01BASIC METABOLIC [id number] 00:58:00 Test Item Value Reference Range Comments SODIUM (BEAKER) (test 135 meq/L 136-145 code = 381) POTASSIUM (BEAKER) (test 3.4 meq/L 3.5-5.1 code = 379) CHLORIDE (BEAKER) (test 104 meq/L 98-107 code = 382) CO2 (BEAKER) (test code = 22 meq/L 22-29 355) BLOOD UREA NITROGEN 7 mg/dL 7-21 (BEAKER) (test code = 354) CREATININE (BEAKER) (test 0.55 mg/dL 0.57-1.25 code = 358) GLUCOSE RANDOM (BEAKER) 113 mg/dL 70-105 (test code = 652) CALCIUM (BEAKER) (test 8.4 mg/dL 8.4-10.2 code = 697) EGFR (BEAKER) (test code 174 mL/min/1.73 sq m ES TIMATED GFR IS NOT = 1092) ACCURATE CREA TININE CLEARANCE IN PRE DICTING GLOMERULAR FILTR ATION RATE. ESTIMATED GFR IS NOT APPLICABLE F OR DIALYSIS PATIENT S. [id number] 00:57:00 Test Item Value Reference Range Comments MAGNESIUM (BEAKER) (test code = 627) 1.5 mg/dL 1.6-2.6 LACTIC ACID, [id number] 00:37:00 Test Item Value Reference Range Comments LACTATE BLOOD VENOUS (2) 0.7 mmol/L 0.5-2.2 Specime n moderately hemolyzed (BEAKER) (test code = 2872) POCT-GLUCOSE [id number] 00:25:00 Test Item Value Reference Range Comments POC-GLUCOSE METER (BEAKER) 101 mg/dL 70-110 TESTE D AT [address] (test code = 1538) [place] [address] POCT-GLUCOSE [id number] 18:32:00 Test Item Value Reference Range Comments POC-GLUCOSE METER (BEAKER) 76 mg/dL 70-110 TESTE D AT [address] (test code = 1538) [place] [address] [id number] 15:15:00 Test Item Value Reference Range Comments POTASSIUM (BEAKER) (test code = 379) 3.4 meq/L 3.5-5.1 [id number] 15:15:00 Test Item Value Reference Range Comments MAGNESIUM (BEAKER) (test code = 627) 2.1 mg/dL 1.6-2.6 CT, [id number] 12:38:00FINAL REPORT CT abdomen with and without contrast. CT pelvis with contrast. INDICATION: Pancreatitis COMPARISON: No prior studies available for comparison. TECHNIQUE: Multiple co ntiguous transaxial images of the abdomen were obtained [...] The lung bases demonstrate a small left ple ural effusion. The osseous structures demonstrate mild degenerative [...] with acute pancreatitis as above.2. Hepatomegaly and marked hepatic steatosis.3. Small amount of ascites.4. Small hiatus hernia.5. Punctate nonobstructing bilateral renal calculi.6. Nonspecific colonic wall thickening for which underlying colitis cannot be excluded. Signed: Junito Gómez MDReport Verified Date/Time: 09/29/2018 12:38:07 Reading Location: [facility] [id number] [facility] Consult Reading Room POCT-GLUCOSE [id number] 11:49:00 Test Item Value Reference Range Comments POC-GLUCOSE METER (BEAKER) 83 mg/dL 70-110 TESTE D AT [facility] [address] [place] [address] (test code = 1538) [facility] [address] [id number] 10:49:00 Test Item Value Reference Range Comments TRIGLYCERIDES (BEAKER) (test 71 mg/dL Spe cimen slightly hemolyzed code = 540) TRIGLYCERIDE REFERENCE RANGELow Risk <150Borderline Risk 150-199High Risk 200-499Very High Risk>=[id number] 05:09:00 Test Item Value Reference Range Comments LIPASE (BEAKER) (test code = 749) > U/L 8-78 [id number] 04:35:00 Test Item Value Reference Range Comments MAGNESIUM (BEAKER) (test code = 1.6 mg/dL 1.6-2.6 Specimen slightly hemolyzed 627) [id number] 04:35:00 Test Item Value Reference Range Comments PHOSPHORUS (BEAKER) (test code 3.2 mg/dL 2.3-4.7 S pecimen slightly hemolyzed = 604) COMPREHENSIVE METABOLIC [id number] 04:35:00 Test Item Value Reference Range Comments TOTAL PROTEIN (BEAKER) 6.8 gm/dL 6.0-8.3 Specimen slightly (test code = 770) hemolyzed ALBUMIN (BEAKER) (test 3.8 g/dL 3.5-5.0 Specimen slightly code = 1145) hemolyzed ALKALINE PHOSPHATASE 130 U/L 40-150 (BEAKER) (test code = 346) BILIRUBIN TOTAL (BEAKER) 1.7 mg/dL 0.2-1.2 Specime n slightly (test code = 377) hemolyzed SODIUM (BEAKER) (test code 138 meq/L 136-145 = 381) POTASSIUM (BEAKER) (test 3.7 meq/L 3.5-5.1 Specime n slightly code = 379) hemolyzed CHLORIDE (BEAKER) (test 103 meq/L 98-107 code = 382) CO2 (BEAKER) (test code = 17 meq/L 22-29 355) BLOOD UREA NITROGEN 9 mg/dL 7-21 (BEAKER) (test code = 354) CREATININE (BEAKER) (test 0.65 mg/dL 0.57-1.25 Specim en slightly code = 358) hemolyzed GLUCOSE RANDOM (BEAKER) 103 mg/dL 70-105 (test code = 652) CALCIUM (BEAKER) (test 8.7 mg/dL 8.4-10.2 code = 697) AST (SGOT) (BEAKER) (test 151 U/L 5-34 Specim en slightly code = 353) hemolyzed ALT (SGPT) (BEAKER) (test 143 U/L 6-55 Specim en slightly code = 347) hemolyzed EGFR (BEAKER) (test code = 143 mL/min/1.73 sq ES TIMATED GFR IS NOT 1092) m ACCURATE CREA TININE CLEARANCE IN PRE DICTING GLOMERULAR FILTR ATION RATE. ESTIMATED GFR IS NOT APPLICABLE F OR DIALYSIS PATIENT S. PROTHROMBIN [id number] 04:34:00 Test Item Value Reference Range Comments PROTIME (BEAKER) (test code = 759) 14.6 seconds 11.7-14.7 INR (BEAKER) (test code = 370) 1.1 <=5.9 RECOMMENDED COUMADIN/WARFARIN INR THERAPY RANGESSTANDARD DOSE: 2.0 - 3.0 Includes: PROPHYLAXIS forvenous thrombosis, systemic embolization; TREATMENT for venous thrombosis and/or pulmonary embolus.HIGH RISK: Target INR is 2.5-3.5 for patients with mechanical heart valves.CBC W/PLT COUNT & AUTO DIFFERENTIAL 2018-09-29 04:09:00 Test Item Value Reference Range Comments WHITE BLOOD CELL COUNT (BEAKER) (test code = 6.2 K/ L 3.5 -10.5 775) RED BLOOD CELL COUNT (BEAKER) (test code = 761) 4.33 M/ L 4.63-6.08 HEMOGLOBIN (BEAKER) (test code = 410) 15.0 GM/DL 13.7-17.5 HEMATOCRIT (BEAKER) (test code = 411) 43.2 % 40.1-51.0 MEAN CORPUSCULAR VOLUME (BEAKER) (test code = 99.8 fL 79 .0-92.2 753) MEAN CORPUSCULAR HEMOGLOBIN (BEAKER) (test code 34.6 pg 25.7-32.2 = 751) MEAN CORPUSCULAR HEMOGLOBIN CONC (BEAKER) (test 34.7 GM/DL 32.3-36.5 code = 752) RED CELL DISTRIBUTION WIDTH (BEAKER) (test code 12.4 % 11.6-14.4 = 412) PLATELET COUNT (BEAKER) (test code = 756) 160 K/CU MM 150-45 0 MEAN PLATELET VOLUME (BEAKER) (test code = 754) 10.4 fL 9.4-12.4 NUCLEATED RED BLOOD CELLS (BEAKER) (test code = 0 /100 WBC 0-0 413) NEUTROPHILS RELATIVE PERCENT (BEAKER) (test code 81 % = 429) LYMPHOCYTES RELATIVE PERCENT (BEAKER) (test code 7 % = 430) MONOCYTES RELATIVE PERCENT (BEAKER) (test code = 10 % 431) EOSINOPHILS RELATIVE PERCENT (BEAKER) (test code 0 % = 432) BASOPHILS RELATIVE PERCENT (BEAKER) (test code = 1 % 437) NEUTROPHILS ABSOLUTE COUNT (BEAKER) (test code = 5.01 K/ L 1.78-5.38 670) LYMPHOCYTES ABSOLUTE COUNT (BEAKER) (test code = 0.44 K/ L 1.32-3.57 414) MONOCYTES ABSOLUTE COUNT (BEAKER) (test code = 0.62 K/ L 0 .30-0.82 415) EOSINOPHILS ABSOLUTE COUNT (BEAKER) (test code = 0.01 K/ L 0.04-0.54 416) BASOPHILS ABSOLUTE COUNT (BEAKER) (test code = 0.03 K/ L 0 .01-0.08 417) IMMATURE GRANULOCYTES-RELATIVE PERCENT (BEAKER) 1 % 0-1 (test code = 2801)
[2019-10-28] MEDS ORDERED: NA CHLORIDE 0.9% 1,000 ML ONE (19:51)
[2019-10-28] MEDS ORDERED: MORPHINE 4 MG/ML SYR ONE (19:52)
[2019-10-28] MEDS ORDERED: THIAMINE 200 MG/2 ML INJ ONE (19:54)
[2019-10-28] MEDS ORDERED: MULTIVITAMINS 10 ML VIAL (INJ) IV ONE (19:55)
[2019-10-28] MEDS ORDERED: FOLIC ACID 5 MG/ML VIAL ONE (19:56)
[2019-10-28] MEDS ORDERED: D50W 25 GM/50 ML SYRINGE/VIAL IV ONE (19:58)
[2019-10-28 20:06] LABS: Basophils % 0.3 % (0-1.3); Hematocrit 49.8 % (39.6-49.0); Lymphocytes % 28.6 % (15.3-44.8); MPV 7.4 fL (7.6-11.3); RBC Red Blood Cell Count 5.64 M/uL (4.33-5.43)
[2019-10-28 20:13] LABS: ALT/SGPT 25 U/L (12-78); AST/SGOT 19 U/L (15-37); Albumin 4.7 g/dL (3.4-5.0); Alkaline Phosphatase 120 U/L (45-117); BUN Blood Urea Nitrogen 21 mg/dL (7-18); Bicarbonate 22 mmol/L (21-32); Bilirubin Direct 0.1 mg/dL (0-0.2); Bilirubin Total 0.3 mg/dL (0.2-1.0); Glucose Level 107 mg/dL (74-106); Lipase 74 U/L (73-393); Potassium 3.5 mmol/L (3.5-5.1); Sodium Level 144 mmol/L (136-145)
[2019-10-28 20:20] LABS: Blood Morphology Comment NOT SEEN (NOT SEEN); Platelet Estimate ADEQ; Urine White Blood Cell Casts OK
[2019-10-28] MEDS ORDERED: PROMETHAZINE INJ 25 MG/ML AMP ONE (20:30)
--- NOTE | 2019-10-28 20:37 | EDPHYS ---
Physician Documentation [facility] Name: Jonathan Gutierrez Age: 34 yrs Sex: Male : 1985 Arrival Date: 10/28/2019 Time: 19:23 Bed 20 Private MD: ED Physician Trenton Lubin HPI: 10/27 19:56 This 34 yrs old Male presents to ER via Ambulatory with complaints of snw Abdominal Pain. 19:56 The patient presents with abdominal pain. Onset: The symptoms/episode began/occurred snw suddenly, today. The symptoms do not radiate. Associated signs and symptoms: none. The symptoms are described as sharp, shooting. Severity of pain: At its worst the pain was moderate severe. The patient has experienced similar episodes in the past, multiple times. It is unknown whether or not the patient has recently seen a physician. Historical: - Allergies: 19:35 No Known Allergies; jd3 - Home Meds: 19:35 Creon Oral [Active]; Folic Acid Oral [Active]; lisinopril Oral [Active]; Propranolol jd3 Oral [Active]; Protonix Oral [Active]; Pepcid Oral [Active]; Thiamine Oral [Active]; - PMHx: 19:35 ADD/ADHD; Hypertension; liver "spot"; etoh abuse; Pancreatitis; jd3 - PSHx: 19:35 None; jd3 - Immunization history:: Adult Immunizations up to date. - Social history:: Smoking status: Patient reports the use of cigarette tobacco products, smokes one pack cigarettes per day. ROS: 19:56 Constitutional: Negative for fever, chills, and weight loss, Eyes: Negative for injury, snw pain, redness, and discharge, ENT: Negative for injury, pain, and discharge, Neck: Negative for injury, pain, and swelling, Cardiovascular: Negative for chest pain, palpitations, and edema, Respiratory: Negative for shortness of breath, cough, wheezing, and pleuritic chest pain, Back: Negative for injury and pain, : Negative for injury, bleeding, discharge, and swelling, MS/Extremity: Negative for injury and deformity, Skin: Negative for injury, rash, and discoloration, Neuro: Negative for headache, weakness, numbness, tingling, and seizure. 19:56 Abdomen/GI: Positive for "I hurt so bad". Exam: 19:54 Head/Face: Normocephalic, atraumatic. Eyes: Pupils equal round and reactive to light, snw extra-ocular motions intact. Lids and lashes normal. Conjunctiva and sclera are non-icteric and not injected. Cornea within normal limits. Periorbital areas with no swelling, redness, or edema. 19:54 Neck: Trachea midline, no thyromegaly or masses palpated, and no cervical lymphadenopathy. Supple, full range of motion without nuchal rigidity, or vertebral point tenderness. No Meningismus. Chest/axilla: Normal chest wall appearance and motion. Nontender with no deformity. No lesions are appreciated. 19:54 Respiratory: Lungs have equal breath sounds bilaterally, clear to auscultation and percussion. No rales, rhonchi or wheezes noted. No increased work of breathing, no retractions or nasal flaring. Back: No spinal tenderness. No costovertebral tenderness. Full range of motion. Skin: Warm, dry with normal turgor. Normal color with no rashes, no lesions, and no evidence of cellulitis. MS/ Extremity: Pulses equal, no cyanosis. Neurovascular intact. Full, normal range of motion. Neuro: Awake and alert, GCS 15, oriented to person, place, time, and situation. Cranial nerves II-XII grossly intact. Motor strength 5/5 in all extremities. Sensory grossly intact. Cerebellar exam normal. Normal gait. Psych: Awake, alert, with orientation to person, place and time. Behavior, mood, and affect are remorseful, states he did this to himself, drank 1 gallon Vodka 3 days ago per report 19:54 Constitutional: The patient appears alert, anxious, frail, restless, uncomfortable. 19:54 ENT: Dental exam: dental caries, that is severe, diffusely. 19:54 Cardiovascular: Rate: tachycardic, Heart sounds: normal. 19:54 Abdomen/GI: Inspection: scaphoid, Bowel sounds: normal, Palpation: mild abdominal tenderness, moderate abdominal tenderness, in the left upper quadrant. Vital Signs: 19:35 BP 146 / 91; Pulse 125; Resp 17 S; Temp 98.1(O); Pulse Ox 99% on R/A; Weight 72.57 kg jd3 (R); Height 5 ft. 11 in. (180.34 cm) (R); Pain 8/10; 20:27 BP 116 / 75; Pulse 113; Resp 17 S; Pulse Ox 97% on R/A; Pain 8/10; jd3 20:55 BP 110 / 73; Pulse 110; Resp 16 S; Pulse Ox 97% on R/A; jd3 19:35 Body Mass Index 22.32 (72.57 kg, 180.34 cm) jd3 MDM: 19:31 Patient medically screened. snw 20:37 Data reviewed: vital signs, nurses notes. Data interpreted: Pulse oximetry: on room air snw is 97 %. Interpretation: normal. Counseling: I had a detailed discussion with the patient and/or guardian regarding: the historical points, exam findings, and any diagnostic results supporting the discharge/admit diagnosis, lab results, the need for outpatient follow up, to return to the emergency department if symptoms worsen or persist or if there are any questions or concerns that arise at home. Special discussion: Based on the patient's Hx, exam, and Dx evaluation, there is no indication for emergent surgery or inpatient Tx. It is understood by the patient/guardian that if the Sx's persist or worsen they need to return immediately for re-evaluation. Based on the history and exam findings, there is no indication for further emergent testing or inpatient evaluation. I discussed with the patient/guardian the need to see the primary care provider for further evaluation of the symptoms. I discussed with the patient/guardian the need to see the psychiatrist for further evaluation of the symptoms. 10/27 19:39 Order name: Basic Metabolic Panel; Complete Time: 20:25 snw 10/27 19:39 Order name: CBC with Diff; Complete Time: 20:25 snw 10/27 19:39 Order name: Creatinine for Radiology; Complete Time: 20:25 snw 10/27 19:39 Order name: Hepatic Function; Complete Time: 20:25 snw 10/27 19:39 Order name: Lipase; Complete Time: 20:25 snw 10/27 20:20 Order name: CBC Smear Scan; Complete Time: 20:25 EDMS 10/27 19:39 Order name: IV Saline Lock; Complete Time: 19:49 snw 10/27 19:39 Order name: Labs collected and sent; Complete Time: 19:49 snw 10/27 19:39 Order name: NPO; Complete Time: 19:39 snw Administered Medications: 19:41 CANCELLED (other intervention used): NS 0.9% 1000 ml IV at 1 bolus Per protocol; 1000 snw mL bolus 20:00 Drug: Banana Bag - (NS 0.9% 1000 ml, foLIC Acid 1 mg, Thiamine 100 mg, Multivitamin 1 jd3 amp) Route: IV; Rate: calculated rate; Site: right forearm; 21:01 Follow up: Response: No adverse reaction; IV Status: Order to discontinue infusion; IV jd3 Intake: 250ml 20:00 Drug: morphine 4 mg Route: IM; Site: right deltoid; jd3 20:53 Follow up: Response: No adverse reaction; RASS: Alert and Calm (0) jd3 20:26 Drug: Phenergan 12.5 mg Route: IVP; Site: right forearm; jd3 20:54 Follow up: Response: No adverse reaction jd3 20:53 Drug: Valium 5 mg Route: PO; jd3 21:01 Follow up: Response: Medication administered at discharge. jd3 Disposition: 22:13 Co-signature as Attending Physician, Trenton Lubin MD. rn Disposition: 10/28/19 20:36 Discharged to Home. Impression: Upper abdominal pain, unspecified, Alcohol abuse. - Condition is Stable. - Discharge Instructions: Abdominal Pain, Adult, Food Choices for Gastroesophageal Reflux Disease, Adult, Rehydration, Adult. - Prescriptions for Bentyl 20 mg Oral Tablet - take 1 tablet by ORAL route every 6 hours As needed; 20 tablet. - Medication Reconciliation Form, Thank You Letter, Antibiotic Education, Prescription Opioid Use form. - Follow up: Emergency Department; When: As needed; Reason: Worsening of condition. Follow up: Private Physician; When: Tomorrow; Reason: Recheck today's complaints, Continuance of care, Re-evaluation by your physician. Signatures: Dispatcher [employer] EDMS Danay Veloz FNP-C MACHINE INKER-Csnw Trenton Lubin MD MD rn Davies, Jonathon, RN RN jd3 Corrections: (The following items were deleted from the chart) 19:41 19:39 NS 0.9% 1000 ml IV at 1 bolus Per protocol; 1000 mL bolus ordered. snw snw 21:03 20:36 10/28/2019 20:36 Discharged to Home. Impression: Upper abdominal pain, jd3 unspecified; Alcohol abuse. Condition is Stable. Forms are Medication Reconciliation Form, Thank You Letter, Antibiotic Education, Prescription Opioid Use. Follow up: Emergency Department; When: As needed; Reason: Worsening of condition. Follow up: Private Physician; When: Tomorrow; Reason: Recheck today's complaints, Continuance of care, Re-evaluation by your physician. snw
--- NOTE | 2019-10-28 20:37 | ER ---
Nurse's Notes [facility] Name: Jonathan Gutierrez Age: 34 yrs Sex: Male : 1985 Arrival Date: 10/28/2019 Time: 19:23 Bed 20 Private MD: Diagnosis: Upper abdominal pain, unspecified;Alcohol abuse Presentation: 10/27 19:30 Chief complaint: Patient states: "I am having bad abdominal pain, feels like jd3 pancreatitis. I was also seen up in [place] and they found clots in my spleen." pt denies nausea, vomiting, and diarrhea. Coronavirus screen: Proceed with normal triage. Ebola Screen: Patient negative for fever greater than or equal to 101.5 degrees Fahrenheit, and additional compatible Ebola Virus Disease symptoms. Initial Sepsis Screen: Does the patient meet any 2 criteria? No. Patient's initial sepsis screen is negative. Does the patient have a suspected source of infection? No. Patient's initial sepsis screen is negative. Risk Assessment: Do you want to hurt yourself or someone else? Patient reports no desire to harm self or others. Onset of symptoms was October 28, 2019. 19:30 Method Of Arrival: Ambulatory jd3 19:30 Acuity: NEO 3 jd3 Historical: - Allergies: 19:35 No Known Allergies; jd3 - Home Meds: 19:35 Creon Oral [Active]; Folic Acid Oral [Active]; lisinopril Oral [Active]; Propranolol jd3 Oral [Active]; Protonix Oral [Active]; Pepcid Oral [Active]; Thiamine Oral [Active]; - PMHx: 19:35 ADD/ADHD; Hypertension; liver "spot"; etoh abuse; Pancreatitis; jd3 - PSHx: 19:35 None; jd3 - Immunization history:: Adult Immunizations up to date. - Social history:: Smoking status: Patient reports the use of cigarette tobacco products, smokes one pack cigarettes per day. Screenin:37 Abuse screen: Denies threats or abuse. Nutritional screening: No deficits noted. jd3 Tuberculosis screening: No symptoms or risk factors identified. Fall Risk Ambulatory Aid- None/Bed Rest/Nurse Assist (0 pts). Gait- Normal/Bed Rest/Wheelchair (0 pts) Mental Status- Oriented to own ability (0 pts). Total Schmidt Fall Scale indicates No Risk (0-24 pts). Assessment: 19:36 General: Appears in no apparent distress. uncomfortable, Behavior is calm, cooperative, jd3 appropriate for age, Smells of alcohol. Pain: Complains of pain in left upper quadrant Quality of pain is described as sharp, tender. Neuro: Level of Consciousness is awake, alert, obeys commands, Oriented to person, place, time, situation. Cardiovascular: Denies chest pain, Capillary refill < 3 seconds Patient's skin is warm and dry. Respiratory: Airway is patent Respiratory effort is even, unlabored, Respiratory pattern is regular, symmetrical, Denies cough, shortness of breath. GI: Abdomen is flat, non-distended, Bowel sounds present X 4 quads. Abd is soft X 4 quads Abdomen is tender to palpation in left upper quadrant Reports upper abdominal pain, Patient currently denies diarrhea, nausea, vomiting. : No signs and/or symptoms were reported regarding the genitourinary system. EENT: No signs and/or symptoms were reported regarding the EENT system. Derm: Skin is intact, Skin is dry, Skin is normal, Skin temperature is warm. Musculoskeletal: Circulation, motion, and sensation intact. Range of motion: intact in all extremities. 20:27 Reassessment: Patient appears in no apparent distress at this time. No changes from jd3 previously documented assessment. Patient and/or family updated on plan of care and expected duration. Pain level reassessed. Patient is alert, oriented x 3, equal unlabored respirations, skin warm/dry/pink. pt reporting continued pain, provider notified, new orders received, see MAR. 20:54 Reassessment: Patient appears in no apparent distress at this time. Patient and/or jd3 family updated on plan of care and expected duration. Pain level reassessed. Patient is alert, oriented x 3, equal unlabored respirations, skin warm/dry/pink. awaiting fallow-up by the provider before discharge. Vital Signs: 19:35 BP 146 / 91; Pulse 125; Resp 17 S; Temp 98.1(O); Pulse Ox 99% on R/A; Weight 72.57 kg jd3 (R); Height 5 ft. 11 in. (180.34 cm) (R); Pain 8/10; 20:27 BP 116 / 75; Pulse 113; Resp 17 S; Pulse Ox 97% on R/A; Pain 8/10; jd3 20:55 BP 110 / 73; Pulse 110; Resp 16 S; Pulse Ox 97% on R/A; jd3 19:35 Body Mass Index 22.32 (72.57 kg, 180.34 cm) jd3 ED Course: 19:23 Patient arrived in ED. bp1 19:24 Jon Mccallum, AMALIA is Primary Nurse. jd3 19:31 [facility]C [facility] snw 19:31 Trenton Lubin MD is Attending Physician. snw 19:32 Triage completed. jd3 19:36 Arm band placed on. jd3 19:38 Patient has correct armband on for positive identification. Bed in low position. Call jd3 light in reach. Side rails up X 1. Pulse ox on. NIBP on. 19:58 Inserted saline lock: 20 gauge in right forearm, using aseptic technique. Blood jd3 collected. 21:02 No provider procedures requiring assistance completed. IV discontinued, intact, jd3 bleeding controlled, No redness/swelling at site. Pressure dressing applied. Administered Medications: 19:41 CANCELLED (other intervention used): NS 0.9% 1000 ml IV at 1 bolus Per protocol; 1000 snw mL bolus 20:00 Drug: Banana Bag - (NS 0.9% 1000 ml, foLIC Acid 1 mg, Thiamine 100 mg, Multivitamin 1 jd3 amp) Route: IV; Rate: calculated rate; Site: right forearm; 21:01 Follow up: Response: No adverse reaction; IV Status: Order to discontinue infusion; IV jd3 Intake: 250ml 20:00 Drug: morphine 4 mg Route: IM; Site: right deltoid; jd3 20:53 Follow up: Response: No adverse reaction; RASS: Alert and Calm (0) jd3 20:26 Drug: Phenergan 12.5 mg Route: IVP; Site: right forearm; jd3 20:54 Follow up: Response: No adverse reaction jd3 20:53 Drug: Valium 5 mg Route: PO; jd3 21:01 Follow up: Response: Medication administered at discharge. jd3 Intake: 21:01 IV: 250ml; Total: 250ml. jd3 Outcome: 20:36 Discharge ordered by . snw 21:02 Discharged to home ambulatory, with family. jd3 21:02 Condition: stable 21:02 Discharge instructions given to patient, Instructed on discharge instructions, follow up and referral plans. medication usage, Demonstrated understanding of instructions, follow-up care, medications, Prescriptions given X 1. 21:03 Patient left the ED. jd3 Signatures: Danay Veloz, BRICK EXTRUDER OPERATOR-C BRICK EXTRUDER OPERATOR-Csnw Jon Mccallum RN RN jd3 Tosin Clifton bp1 Corrections: (The following items were deleted from the chart) 23:46 19:36 General: Appears in no apparent distress. uncomfortable, Behavior is calm, jd3 cooperative, appropriate for age, jd3
[2019-10-28] MEDS ORDERED: DIAZEPAM 5 MG TABLET ONE (20:46)
[2019-10-28 21:10] VITALS: TEMP 98.1
[2019-10-28 21:11] VITALS: O2SAT 97
[2019-10-28 21:13] VITALS: BP 110/73
== END 2019-10-28 21:03 | disposition home or self-care (01) ==
LOC: ER 19:18
DX: F10.10 Alcohol abuse, uncomplicated (principal); I10 Essential (primary) hypertension; F17.210 Nicotine dependence, cigarettes, uncomplicated
CPT/HCPCS: 36415; 80048; 80076; 83690; 85025; 96365; 96372; 96375; 99284; J2550; J3411; J7030

== ENCOUNTER 2020-03-25 14:24 | Emergency (ER) | payer SELFPAY ==
--- OUTSIDE RECORDS SUMMARY | 2020-03-25 14:31 | XMS REPORT | Clinical Summary ---
:[address] [facility] Address [address] [place] [address] Care Team Providers Name Role Phone Pcp Primary Care Provider Unavailable Raffaele Fierro Unavailable Allergies No Known Allergies Medications Medication Sig Dispensed Refills Start End Status Date Date cyanocobalamin Take by mouth 0 A ctive (VITAMIN B-12) 100 daily. MCG tablet sucralfate Take 1 tablet by 3 Ac tive (CARAFATE) 1 gram mouth 4 (four) 0 tablet times daily before meals and nightly. propranoloL Take 1 tablet (20 90 tablet 0 Active (INDERAL) 20 MG mg total) by mouth 0 tablet 3 (three) times daily. senna-docusate Take 1 tablet by 60 tablet 0 Active (SENOKOT S) 8.6-50 mouth 2 (two) 0 021 mg per tablet times daily. warfarin (COUMADIN, Take 2 tablets (5 0 Active JANTOVEN) 2.5 MG mg total) by mouth 0 tablet daily. folic acid Take 1 tablet (1 30 tablet 11 Ac tive (FOLVITE) 1 MG mg total) by mouth 0 021 tablet daily. pantoprazole Take 1 tablet (40 60 tablet 1 Active (PROTONIX) 40 MG mg total) by mouth 0 020 tablet 2 (two) times daily for 60 days. fludrocortisone Take 1 tablet (0.1 30 tablet 2 05/24 Active (FLORINEF) 0.1 mg mg total) by mouth 0 020 tablet daily for 90 days. nicotine (NICODERM Place 1 patch onto 30 patch 2 Active CQ) 7 mg/24 hr the skin daily for 0 020 patch 90 days. pregabalin (LYRICA) Take 1 capsule (50 60 capsule 2 Active 50 MG capsule mg total) by mouth 0 020 2 (two) times daily for 90 days. Max Daily Amount: 100 mg ondansetron Take 1 tablet (4 20 tablet 0 A ctive (ZOFRAN-ODT) 4 MG mg total) by mouth 0 020 disintegrating every 6 (six) tablet hours as needed for up to 7 days. oxyCODONE-acetamino Take 1 tablet by 30 tablet 0 29/08 Active phen (PERCOCET) mouth every 8 0 020 5-325 mg per tablet (eight) hours as needed for Pain for up to 10 days. Max Daily Amount: 3 tablets thiamine 100 MG Take 1 tablet (100 30 tablet 0 10/02 tablet mg total) by mouth 9 020 daily. folic acid Take 1 tablet (1 90 tablet 0 Di scontinued (FOLVITE) 1 MG mg total) by mouth 9 020 tablet daily. multivitamin Take 1 tablet by 90 tablet 0 Discontinued (THERAGRAN) tablet mouth daily. 9 020 pantoprazole Take 1 tablet (40 180 tablet 0 (PROTONIX) 40 MG mg total) by mouth 9 019 tablet 2 (two) times daily for 90 days. amLODIPine Take 1 tablet (10 30 tablet 2 E xpired (NORVASC) 10 MG mg total) by mouth 9 019 tablet daily for 90 days. nicotine (NICODERM Place 1 patch onto 28 patch 2 CQ) 21 mg/24 hr the skin daily for 9 019 patch 84 days. ondansetron Take 1 tablet (4 20 tablet 0 E xpired (ZOFRAN-ODT) 4 MG mg total) by mouth 9 019 disintegrating every 8 (eight) tablet hours as needed for up to 7 days. acetaminophen-codei Take 1 tablet by 30 tablet 0 03/09 ne (TYLENOL-CODEINE mouth every 4 9 019 #3) 300-30 mg per (four) hours as tablet needed for Pain for up to 10 days. Max Daily Amount: 6 tablets rivaroxaban Take 1 tablet (15 40 tablet 0 (XARELTO) 15 mg Tab mg total) by mouth 9 0 19 tablet 2 (two) times daily with breakfast and dinner for 20 days. rivaroxaban Take 1 tablet (20 30 tablet 2 (XARELTO) 20 mg Tab mg total) by mouth 9 0 19 tablet daily with dinner for 90 days. pantoprazole Take 40 mg by 0 Dis continued (PROTONIX) 40 MG mouth daily. 020 tablet propranoloL Take 20 mg by 0 Disc ontinued (INDERAL) 20 MG mouth 3 (three) 020 tablet times daily. rivaroxaban Take 1 tablet (20 30 tablet 0 Discontinued (XARELTO) 20 mg Tab mg total) by mouth 0 0 20 tablet daily with dinner for 30 days. ondansetron Take 1 tablet (4 20 tablet 0 D iscontinued (ZOFRAN-ODT) 4 MG mg total) by mouth 0 020 disintegrating every 8 (eight) tablet hours as needed for up to 7 days. oxyCODONE-acetamino Take 1 tablet by 30 tablet 0 11/09 Discontinued phen (PERCOCET) mouth every 4 0 020 10-325 mg per (four) hours as tablet needed for up to 10 days. Max Daily Amount: 6 tablets amLODIPine Take 1 tablet (5 30 tablet 11 Di scontinued (NORVASC) 5 MG mg total) by mouth 0 020 tablet daily. ondansetron Take 1 tablet (4 30 tablet 1 D iscontinued (ZOFRAN-ODT) 4 MG mg total) by mouth 0 020 disintegrating every 8 (eight) tablet hours as needed for up to 7 days. oxyCODONE-acetamino Take 1 tablet by 40 tablet 0 02/09 Discontinued phen (PERCOCET) mouth every 6 0 020 10-325 mg per (six) hours as tablet needed. Max Daily Amount: 4 tablets oxyCODONE-acetamino Take 1 tablet by 40 tablet 0 08/17 phen (PERCOCET) mouth every 8 0 020 10-325 mg per (eight) hours as tablet needed for Pain for up to 15 days. Max Daily Amount: 3 tablets pantoprazole Take 1 tablet (40 30 tablet 0 Discontinued (PROTONIX) 40 MG mg total) by mouth 0 020 tablet daily. warfarin (COUMADIN, Take 1 tablet (5 90 tablet 0 09/14 Discontinued JANTOVEN) 5 MG mg total) by mouth 0 020 tablet every evening for 90 days. promethazine Take 1 tablet (25 30 tablet 0 (PHENERGAN) 25 MG mg total) by mouth 0 020 tablet every 6 (six) hours as needed for up to 7 days. pancrelipase, Take 1 capsule 90 capsule 0 Evv-Auck-Qmqn, (24,000 units of 0 020 (CREON) lipase total) by 24,000-76,000 mouth 3 (three) -120,000 unit CpDR times daily with capsule meals for 30 days. warfarin (COUMADIN, Take 2.5 mg by 0 12/25 Discontinued JANTOVEN) 2.5 MG mouth daily. 020 tablet enoxaparin Inject 0.7 mLs (70 19.6 mL 0 Discontinued (LOVENOX) 80 mg/0.8 mg total) 0 020 mL Syrg subcutaneously every 12 (twelve) hours for 14 days. enoxaparin Inject 0.7 mLs (70 7 mL 0 (LOVENOX) 80 mg/0.8 mg total) 0 020 mL Syrg subcutaneously every 12 (twelve) hours for 5 days. gabapentin Take 1 capsule 90 capsule 2 Dis continued (NEURONTIN) 300 MG (300 mg total) by 0 020 capsule mouth 3 (three) times daily for 90 days. oxyCODONE-acetamino Take 1 tablet by 30 tablet 0 06/09 phen (PERCOCET) mouth every 6 0 020 10-325 mg per (six) hours as tablet needed for up to 10 days. Max Daily Amount: 4 tablets hyoscyamine Take 1 tablet (125 40 tablet 0 (LEVSIN/SL) 0.125 mcg total) by 0 020 mg SL tablet mouth every 6 (six) hours for 10 days. ondansetron Take 1 tablet (4 20 tablet 0 E xpired (ZOFRAN-ODT) 4 MG mg total) by mouth 0 020 disintegrating every 8 (eight) tablet hours as needed for up to 7 days. oxyCODONE-acetamino Take 1 tablet by 30 tablet 0 07/09 phen (PERCOCET) mouth every 6 0 020 10-325 mg per (six) hours for 10 tablet days. Max Daily Amount: 4 tablets HYDROcodone-acetami Take 1 tablet by 30 tablet 0 04/16 Discontinued nophen (NORCO mouth every 6 0 020 10-325) 10-325 mg (six) hours as per tablet needed for up to 10 days. Max Daily Amount: [address] 1 patch onto 30 patch 0 E xpired (LIDODERM) 5 % the skin daily for 0 020 patch 30 days Remove & Discard patch within 12 hours or as directed by . ondansetron Take 1 tablet (4 20 tablet 0 D iscontinued (ZOFRAN-ODT) 4 MG mg total) by mouth 0 020 disintegrating every 6 (six) tablet hours as needed for up to 7 days. oxyCODONE-acetamino Take 1 tablet by 30 tablet 0 10/15 Discontinued phen (PERCOCET) mouth every 8 0 020 5-325 mg per tablet (eight) hours as needed for Pain for up to 10 days. 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 Acute on chronic pancreatitis 03/19/2019 Acute liver failure 02/14/2019 Anemia 02/12/2019 Pancreatitis, alcoholic, acute 02/12/2019 Acute blood loss anemia 02/12/2019 Hypokalemia 12/10/2018 Hypertension 10/02/2018 Alcohol withdrawal 09/29/2018 Encounters Date Type Specialty Care Team Description 03/05/2020 Surgery Rosa Forte LAPAROSCOPY,CH AVANI Tom MD CTOMY 03/05/2020 Anesthesia Event Frank Ambrosio MD 02/28/2020 [facility], Generalized abdominal pain (Primary Dx); - Encounter Medicine MD Kashmir Acute pancreatitis, unspecified complica tion status, unspecified pancreatitis type; 03/19/2020 Radha Perez, Acute on chr onic pancreatitis (HCC); Epigastric pain; Ramona, Hyperkalemia; Cole Essential hyper tension; MD Brandon Superior mesenteric vein thrombosis (HCC ); Jannette Wan Gallbladder sludge; P., Splenic vein thrombosis Clement Bonilla MD Merchant, Omar, MD 02/28/2020 Travel 02/19/2020 Anesthesia Event Gastroenterology Maya Cabrera 02/19/2020 Surgery Gastroenterology Wojciech Rincon UPPER EN DOSCOPY,FNA W/ULTRASOUND 02/15/2020 [facility] Janet, Epigastric pain (Primary Dx); - Encounter Medicine MD Sheldon Hematemesis with nausea; 02/23/2020 Carli Lima, Pain of uppe r abdomen; Acute on chronic pancreatitis (HCC); [place], Adrenal insuffi ciency (HCC); MD Jeremy Other chronic p ancreatitis (HCC); Gallbladder slu dge; Hyperkalemia 02/15/2020 Orders Only General Internal Medicine 02/15/2020 Travel 01/22/2020 [facility] David Mcnulty, Hemateme sis, presence of nausea not specified (Primary Dx); - Encounter Medicine Pain of upper abdomen; 01/26/2020 Eliana Gastrointestina l hemorrhage, unspecified gastrointestinal hemorrhage type; MD Mg Superior mesenteric vein thrombosis (HCC ); Tesfaye Supratherapeuti c INR Liza Arana MD 01/22/2020 Travel 12/17/2019 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); Supratherapeuti c INR 12/17/2019 Travel 11/21/2019 Anesthesia Event Gastroenterology Lucia Belle CRNA 11/21/2019 Surgery Gastroenterology Daniel Marti COLONOSCMikhail Sheppard MD 11/18/2019 Telephone Emergency Medicine Willy Delacruz MD 11/14/2019 [facility] Rectal bl eeding (Primary Dx); - Encounter Medicine MD Belkis Generalized abdominal pain; 12/01/2019 Nubia, Dehydration; Willy Li, Nausea and v omiting, intractability of vomiting not specified, unspecified vomiting type; Left upper quadrant abdominal pain; Will Blount Splenic vein thrombosis; D Superior mesent dali vein thrombosis (HCC); Rectal bleed; Acute liver mya lure without hepatic coma; Acute on chroni c pancreatitis (HCC); Adrenal insuffi ciency (HCC); Alcohol-induced acute pancreatitis without infection or necrosis 11/14/2019 Travel 11/07/2019 Anesthesia Event Gastroenterology Katherin Kerns MD 11/07/2019 Surgery Gastroenterology Wojciech Rincon UPPER EN DOSCOPY,FNA W/ULTRASOUND 10/30/2019 [facility] General Internal Shinthia, Gastrointes tinal hemorrhage, unspecified gastrointestinal hemorrhage type (Primary Dx); - Encounter Medicine MD Hasmukh Alcohol-induced chronic pancreatitis (HC C); 11/10/2019 Parbrenna, Epigastric pain ; MD Clovis Splenic vein thrombosis; Anabel Freeman, History of p ancreatitis; Proctalgia; Shun Nogueira Rectal bleed; MD Jordan Hyperkalemia; Alcohol-induced acute pancreatitis without infection or necrosis; Acute on chroni c pancreatitis (HCC); Adrenal insuffi ciency (HCC) 10/30/2019 Orders Only General Internal Medicine 10/30/2019 Travel 10/21/2019 [facility] Naidu, Splenic vei n thrombosis (Primary Dx); - Encounter Medicine Juan Ardon MD Chronic pancreatitis, unspecified pancre atitis type (HCC); 10/24/2019 [place], Epigastric pain Liza Arana MD 10/21/2019 Travel after 03/25/2019 Family History Medical History Relation Name Comments Hypertension Mother Relation Name Status Comments Mother Social History Tobacco Use Types Packs/Day Years Used Date Current Every Day Smoker Cigarettes 1 Smokeless Tobacco: Former User Snuff Tobacco Cessation: Ready to Quit: No; Co unseling Given: Yes Alcohol Use Drinks/Week oz/Week Comments Yes 3 Shots of liquor 1.8 1 pint of vodk a every day for 9 months Alcohol Habits Answer Date Recorded How often do you have a drink containing alcohol? Never 11/14/2019 How many drinks containing alcohol do you have on a typical Not asked day when you are drinking? How often do you have six or more drinks on one occasion? No t asked Sex Assigned at Date Recorded Not on file Job Start Date Occupation Industry Not on file Not on file Not on file Travel History Travel Start Travel End No recent travel history available. Last Filed Vital Signs Vital Sign Reading Time Taken Blood Pressure 117/79 03/19/2020 7:47 AM CDT Pulse 97 03/19/2020 7:47 AM CDT Temperature 36 C (96.8 F) 03/19/2020 7:47 AM CDT Respiratory Rate 18 03/19/2020 7:47 AM CDT Oxygen Saturation 99% 03/19/2020 7:47 AM CDT Inhaled Oxygen Concentration 21% 02/20/2020 7:47 PM CDT Weight 66.6 kg (146 lb 14.4 oz) 03/18/2020 7:0 2 AM CDT Height 180.3 cm (5' 11") 02/28/2020 2:30 AM CDT Body Mass Index 20.49 03/18/2020 7:02 AM CDT Plan of Treatment Not on file Procedures Procedure Name Priority Date/Time Associated Comments Diagnosis REPORT OF PROCEDURE - 03/23/2020 3:01 ENDOSCOPY SCAN PM CDT RHYTHM STRIP - SCAN 03/23/2020 3:01 PM CDT POTASSIUM Routine 03/19/2020 8:58 Results for this AM CDT procedure are i n the results section. SARS-COV2/RT-PCR Routine 03/19/2020 5:45 Results for this ([facility] & REF LAB[facility]) AM CDT procedure are in the results section. CBC W/PLT COUNT & Routine 03/19/2020 5:33 Result s for this AUTO DIFFERENTIAL AM CDT procedure are in the results section. MAGNESIUM Routine 03/19/2020 5:33 Results for this AM CDT procedure are i n the results section. PHOSPHORUS Routine 03/19/2020 5:33 Results for this AM CDT procedure are i n the results section. COMPREHENSIVE Routine 03/19/2020 5:33 Results fo r this METABOLIC PANEL AM CDT procedure ar e in the results section. CBC W/PLT COUNT & Routine 03/19/2020 5:33 Result s for this AUTO DIFFERENTIAL AM CDT procedure are in the results section. COMPREHENSIVE Routine 03/18/2020 5:41 Results fo r this METABOLIC PANEL AM CDT procedure ar e in the results section. CBC W/PLT COUNT & Routine 03/18/2020 3:28 Result s for this AUTO DIFFERENTIAL AM CDT procedure are in the results section. MAGNESIUM Routine 03/18/2020 3:28 Results for this AM CDT procedure are i n the results section. PHOSPHORUS Routine 03/18/2020 3:28 Results for this AM CDT procedure are i n the results section. CBC W/PLT COUNT & Routine 03/18/2020 3:28 Result s for this AUTO DIFFERENTIAL AM CDT procedure are in the results section. CBC W/PLT COUNT & Routine 03/17/2020 4:42 Result s for this AUTO DIFFERENTIAL AM CDT procedure are in the results section. MAGNESIUM Routine 03/17/2020 4:42 Results for this AM CDT procedure are i n the results section. PHOSPHORUS Routine 03/17/2020 4:42 Results for this AM CDT procedure are i n the results section. COMPREHENSIVE Routine 03/17/2020 4:42 Results fo r this METABOLIC PANEL AM CDT procedure ar e in the results section. CBC W/PLT COUNT & Routine 03/17/2020 4:42 Result s for this AUTO DIFFERENTIAL AM CDT procedure are in the results section. CBC W/PLT COUNT & Routine 03/16/2020 4:50 Result s for this AUTO DIFFERENTIAL AM CDT procedure are in the results section. MAGNESIUM Routine 03/16/2020 4:50 Results for this AM CDT procedure are i n the results section. PHOSPHORUS Routine 03/16/2020 4:50 Results for this AM CDT procedure are i n the results section. COMPREHENSIVE Routine 03/16/2020 4:50 Results fo r this METABOLIC PANEL AM CDT procedure ar e in the results section. CBC W/PLT COUNT & Routine 03/16/2020 4:50 Result s for this AUTO DIFFERENTIAL AM CDT procedure are in the results section. COMPREHENSIVE Routine 03/15/2020 10:43 Results fo r this METABOLIC PANEL AM CDT procedure ar e in the results section. CBC W/PLT COUNT & Routine 03/15/2020 5:23 Result s for this AUTO DIFFERENTIAL AM CDT procedure are in the results section. MAGNESIUM Routine 03/15/2020 5:23 Results for this AM CDT procedure are i n the results section. PHOSPHORUS Routine 03/15/2020 5:23 Results for this AM CDT procedure are i n the results section. CBC W/PLT COUNT & Routine 03/15/2020 5:23 Result s for this AUTO DIFFERENTIAL AM CDT procedure are in the results section. CBC W/PLT COUNT & Routine 03/14/2020 3:39 Result s for this AUTO DIFFERENTIAL AM CDT procedure are in the results section. MAGNESIUM Routine 03/14/2020 3:39 Results for this AM CDT procedure are i n the results section. PHOSPHORUS Routine 03/14/2020 3:39 Results for this AM CDT procedure are i n the results section. COMPREHENSIVE Routine 03/14/2020 3:39 Results fo r this METABOLIC PANEL AM CDT procedure ar e in the results section. CBC W/PLT COUNT & Routine 03/14/2020 3:39 Result s for this AUTO DIFFERENTIAL AM CDT procedure are in the results section. COMPREHENSIVE Routine 03/13/2020 8:44 Results fo r this METABOLIC PANEL AM CDT procedure ar e in the results section. CBC W/PLT COUNT & Routine 03/13/2020 6:43 Result s for this AUTO DIFFERENTIAL AM CDT procedure are in the results section. MAGNESIUM Routine 03/13/2020 6:43 Results for this AM CDT procedure are i n the results section. PHOSPHORUS Routine 03/13/2020 6:43 Results for this AM CDT procedure are i n the results section. CBC W/PLT COUNT & Routine 03/13/2020 6:43 Result s for this AUTO DIFFERENTIAL AM CDT procedure are in the results section. CBC W/PLT COUNT & Routine 03/12/2020 4:18 Result s for this AUTO DIFFERENTIAL AM CDT procedure are in the results section. MAGNESIUM Routine 03/12/2020 4:18 Results for this AM CDT procedure are i n the results section. COMPREHENSIVE Routine 03/12/2020 4:18 Results fo r this METABOLIC PANEL AM CDT procedure ar e in the results section. CBC W/PLT COUNT & Routine 03/12/2020 4:18 Result s for this AUTO DIFFERENTIAL AM CDT procedure are in the results section. PHOSPHORUS Routine 03/12/2020 4:18 Results for this AM CDT procedure are i n the results section. SARS-COV2/RT-PCR Routine 03/11/2020 8:27 Results for this ([facility] & REF LABS) PM CDT procedure are in the results section. PHOSPHORUS Routine 03/11/2020 4:52 Results for this AM CDT procedure are i n the results section. BASIC METABOLIC PANEL Add-On 03/10/2020 4:13 Re sults for this (7) AM CDT procedure are i n the results section. PHOSPHORUS Routine 03/10/2020 4:13 Results for this AM CDT procedure are i n the results section. HEPATIC FUNCTION Routine 03/10/2020 4:13 Results for this PANEL AM CDT procedure are i n the results section. TRIGLYCERIDES Routine 03/10/2020 4:13 Results fo r this AM CDT procedure are i n the results section. XR CHEST 1 VIEW STAT 03/09/2020 3:17 Results for this PORTABLE/BEDSIDE PM CDT procedure a re in the results section. CBC W/PLT COUNT & Routine 03/09/2020 5:04 Result s for this AUTO DIFFERENTIAL AM CDT procedure are in the results section. COMPREHENSIVE CRYSTAL 03/09/2020 5:04 Results fo r this METABOLIC PANEL AM CDT procedure ar e in the results section. CBC W/PLT COUNT & Routine 03/09/2020 5:04 Result s for this AUTO DIFFERENTIAL AM CDT procedure are in the results section. NM HEPATOBILIARY Routine 03/08/2020 12:26 Results for this (HIDA) SCAN PM CDT procedure are i n the results section. COMPREHENSIVE CRYSTAL 03/08/2020 6:42 Results fo r this METABOLIC PANEL AM CDT procedure ar e in the results section. CBC W/PLT COUNT & Routine 03/08/2020 5:10 Result s for this AUTO DIFFERENTIAL AM CDT procedure are in the results section. CBC W/PLT COUNT & Routine 03/08/2020 5:10 Result s for this AUTO DIFFERENTIAL AM CDT procedure are in the results section. CBC W/PLT COUNT & Routine 03/07/2020 3:39 Result s for this AUTO DIFFERENTIAL AM CDT procedure are in the results section. LIPASE Add-On 03/07/2020 3:39 Results for this AM CDT procedure are i n the results section. HEPATIC FUNCTION CRYSTAL Add-on 03/07/2020 3:39 Results for this PANEL AM CDT procedure are i n the results section. CBC W/PLT COUNT & Routine 03/07/2020 3:39 Result s for this AUTO DIFFERENTIAL AM CDT procedure are in the results section. BASIC METABOLIC PANEL Routine 03/07/2020 3:39 Re sults for this (7) AM CDT procedure are i n the results section. CT ABDOMEN/PELVIS Routine 03/06/2020 8:18 Result s for this WITH IV CONTRAST PM CDT procedure a re in the results section. BASIC METABOLIC PANEL Routine 03/06/2020 5:06 Re sults for this (7) AM CDT procedure are i n the results section. TISSUE EXAM AP Routine 03/05/2020 8:32 Results for this AM CDT procedure are i n the results section. LAPAROSCOPY,CHOLECYST 03/05/2020 7:30 Other chronic ECTOMY AM CDT pancreatitis (HCC) Special Needs (REQ 0730) BASIC METABOLIC PANEL (7) Routine 03/05/2020 4:32 AM CDT Results for this procedure are i n the results section . TRANSFUSION SERVICE REPORT - 03/04/2020 6:00 PM CDT SCAN BASIC METABOLIC PANEL (7) Routine 03/04/2020 4:53 AM CDT Results for this procedure are i n the results section . TYPE AND SCREEN, AUTOMATED Routine 03/03/2020 2:49 PM CDT Results for this procedure are i n the results section . CBC W/PLT COUNT & AUTO Routine 03/03/2020 6:29 AM CDT Results for this DIFFERENTIAL procedure are i n the results section . CBC W/PLT COUNT & AUTO Routine 03/03/2020 6:29 AM CDT Results for this DIFFERENTIAL procedure are i n the results section . BASIC METABOLIC PANEL (7) Routine 03/03/2020 6:29 AM CDT Results for this procedure are i n the results section . SARS-COV2/RT-PCR ([facility] & REF CRYSTAL 03/02/2020 5:07 PM CDT Results for this LABS) procedure are i n the results section . HEMOGLOBIN AND HEMATOCRIT Routine 03/02/2020 2:33 PM CDT Results for this procedure are i n the results section . CBC W/PLT COUNT & AUTO Routine 03/02/2020 4:53 AM CDT Results for this DIFFERENTIAL procedure are i n the results section . BASIC METABOLIC PANEL (7) Routine 03/02/2020 4:53 AM CDT Results for this procedure are i n the results section . CBC W/PLT COUNT & AUTO Routine 03/02/2020 4:53 AM CDT Results for this DIFFERENTIAL procedure are i n the results section . CBC W/PLT COUNT & AUTO Routine 03/01/2020 5:00 AM CDT Results for this DIFFERENTIAL procedure are i n the results section . BASIC METABOLIC PANEL (7) Routine 03/01/2020 5:00 AM CDT Results for this procedure are i n the results section . CBC W/PLT COUNT & AUTO Routine 03/01/2020 5:00 AM CDT Results for this DIFFERENTIAL procedure are i n the results section . PROTHROMBIN TIME/INR Routine 03/01/2020 5:00 AM CDT Results for this procedure are i n the results section . CBC W/PLT COUNT & AUTO Routine 02/29/2020 3:53 AM CDT Results for this DIFFERENTIAL procedure are i n the results section . CBC W/PLT COUNT & AUTO Routine 02/29/2020 3:53 AM CDT Results for this DIFFERENTIAL procedure are i n the results section . HEPATIC FUNCTION PANEL Routine 02/29/2020 3:53 AM CDT Results for this procedure are i n the results section . BASIC METABOLIC PANEL (7) Routine 02/29/2020 3:53 AM CDT Results for this procedure are i n the results section . PROTHROMBIN TIME/INR Routine 02/29/2020 3:53 AM CDT Results for this procedure are i n the results section . URINALYSIS W/ MICROSCOPIC Routine 02/28/2020 5:33 PM CDT Results for this procedure are i n the results section . PROTHROMBIN TIME/INR Routine 02/28/2020 5:05 PM CDT Results for this procedure are i n the results section . BASIC METABOLIC PANEL (7) Routine 02/28/2020 5:05 PM CDT Results for this procedure are i n the results section . SARS-COV2/RT-PCR ([facility] & REF Routine 02/28/2020 3:15 PM CDT Results for this LABS) procedure are i n the results section . ECG 12-LEAD Routine 02/28/2020 3:06 PM CDT Resu lts for this procedure are i n the results section . CT ABDOMEN/PELVIS WITH IV STAT 02/28/2020 5:35 AM CDT Results for this CONTRAST procedure are i n the results section . CBC W/PLT COUNT & AUTO STAT 02/28/2020 2:29 AM CDT Results for this DIFFERENTIAL procedure are i n the results section . MAGNESIUM Add-On 02/28/2020 2:29 AM CDT Resu lts for this procedure are i n the results section . LIPASE STAT 02/28/2020 2:29 AM CDT Resu lts for this procedure are i n the results section . CBC W/PLT COUNT & AUTO STAT 02/28/2020 2:29 AM CDT Results for this DIFFERENTIAL procedure are i n the results section . COMPREHENSIVE METABOLIC STAT 02/28/2020 2:29 AM CDT Results for this PANEL procedure are i n the results section . RHYTHM STRIP - SCAN 02/26/2020 10:44 AM CDT RHYTHM STRIP - SCAN 02/25/2020 10:40 AM CDT REPORT OF PROCEDURE - 02/25/2020 10:40 AM CDT ENDOSCOPY SCAN CBC W/PLT COUNT & AUTO Routine 02/23/2020 5:03 AM CDT Results for this DIFFERENTIAL procedure are i n the results section . CBC W/PLT COUNT & AUTO Routine 02/23/2020 5:03 AM CDT Results for this DIFFERENTIAL procedure are i n the results section . MAGNESIUM Routine 02/23/2020 5:03 AM CDT Resu lts for this procedure are i n the results section . HEPATIC FUNCTION PANEL Routine 02/23/2020 5:03 AM CDT Results for this procedure are i n the results section . BASIC METABOLIC PANEL (7) Routine 02/23/2020 5:03 AM CDT Results for this procedure are i n the results section . PROTHROMBIN TIME/INR Routine 02/23/2020 5:03 AM CDT Results for this procedure are i n the results section . CBC W/PLT COUNT & AUTO Routine 02/22/2020 5:11 AM CDT Results for this DIFFERENTIAL procedure are i n the results section . CBC W/PLT COUNT & AUTO Routine 02/22/2020 5:11 AM CDT Results for this DIFFERENTIAL procedure are i n the results section . MAGNESIUM Routine 02/22/2020 5:11 AM CDT Resu lts for this procedure are i n the results section . HEPATIC FUNCTION PANEL Routine 02/22/2020 5:11 AM CDT Results for this procedure are i n the results section . BASIC METABOLIC PANEL (7) Routine 02/22/2020 5:11 AM CDT Results for this procedure are i n the results section . PROTHROMBIN TIME/INR Routine 02/22/2020 5:11 AM CDT Results for this procedure are i n the results section . CORTISOL,60 MIN Routine 02/21/2020 9:26 PM CDT R esults for this procedure are i n the results section . CORTISOL,30 MIN Routine 02/21/2020 8:58 PM CDT R esults for this procedure are i n the results section . CORTISOL,BASELINE Routine 02/21/2020 8:12 PM CDT Results for this procedure are i n the results section . ACTH STIMULATION Routine 02/21/2020 8:12 PM CDT Results for this procedure are i n the results section . BASIC METABOLIC PANEL (7) Routine 02/21/2020 6:23 PM CDT Results for this procedure are i n the results section . ECG 12-LEAD Routine 02/21/2020 12:48 PM CDT Procedure Note - Interface, External Ris In - 02/21/2020 12:47 PM CDT Ventricular Rate 58 BPM Atrial Rate 58 BPM P-R Interval 126 ms QRS Duration 86 ms Q-T Interval 368 ms QTC Calculation(Bazett) 361 ms P [place] 36 degrees R [place] 54 degrees T [place] 42 degrees Sinus bradycardia Otherwise normal ECG When compared with ECG of 22:41, No significant change was fo und ECG 12-LEAD STAT 02/21/2020 12:48 PM CDT Resu lts for this procedure are i n the results section . BASIC METABOLIC PANEL (7) Routine 02/21/2020 11:05 AM CDT Results for this procedure are i n the results section . CBC W/PLT COUNT & AUTO Routine 02/21/2020 4:51 AM CDT Results for this DIFFERENTIAL procedure are i n the results section . CBC W/PLT COUNT & AUTO Routine 02/21/2020 4:51 AM CDT Results for this DIFFERENTIAL procedure are i n the results section . MAGNESIUM Routine 02/21/2020 4:51 AM CDT Resu lts for this procedure are i n the results section . HEPATIC FUNCTION PANEL Routine 02/21/2020 4:51 AM CDT Results for this procedure are i n the results section . BASIC METABOLIC PANEL (7) Routine 02/21/2020 4:51 AM CDT Results for this procedure are i n the results section . TROPONIN I Routine 02/21/2020 4:51 AM CDT Resu lts for this procedure are i n the results section . PROTHROMBIN TIME/INR Routine 02/21/2020 4:51 AM CDT Results for this procedure are i n the results section . BASIC METABOLIC PANEL (7) Routine 02/21/2020 12:22 AM CDT Results for this procedure are i n the results section . POCT-GLUCOSE METER Routine 02/20/2020 11:24 PM CDT Results for this procedure are i n the results section . ECG 12-LEAD Routine 02/20/2020 10:41 PM CDT Procedure Note - Interface, External Ris In - 02/20/2020 10:40 PM CDT Ventricular Rate 64 BPM Atrial Rate 64 BPM P-R Interval 144 ms QRS Duration 86 ms Q-T Interval 368 ms QTC Calculation(Bazett) 379 ms P [place] 42 degrees R [place] 55 degrees T [place] 52 degrees Normal sinus rhythm Normal ECG When compared with ECG of 17:42, No significant change was fo und ECG 12-LEAD Routine 02/20/2020 10:41 PM CDT Resu lts for this procedure are i n the results section . TROPONIN I Routine 02/20/2020 9:17 PM CDT Resu lts for this procedure are i n the results section . BASIC METABOLIC PANEL (7) Routine 02/20/2020 9:17 PM CDT Results for this procedure are i n the results section . ECG 12-LEAD Routine 02/20/2020 5:42 PM CDT Procedure Note - Interface, External Ris In - 02/20/2020 6:01 PM CDT Ventricular Rate 61 BPM Atrial Rate 61 BPM P-R Interval 134 ms QRS Duration 90 ms Q-T Interval 372 ms QTC Calculation(Bazett) 374 ms P [place] 47 degrees R [place] 74 degrees T [place] 56 degrees Normal sinus rhythm Normal ECG When compared with ECG of 17:42, No significant change was fo und ECG 12-LEAD STAT 02/20/2020 5:42 PM CDT Resu lts for this procedure are in the results section . ECG 12-LEAD Routine 02/20/2020 5:42 PM CDT Procedure Note - Interface, External Ris In - 02/20/2020 6:01 PM CDT Ventricular Rate 61 BPM Atrial Rate 61 BPM P-R Interval 148 ms QRS Duration 90 ms Q-T Interval 372 ms QTC Calculation(Bazett) 374 ms P [place] 53 degrees R [place] 74 degrees T [place] 58 degrees Normal sinus rhythm Early repolarization Normal ECG When compared with ECG of 16:10, Sinus rhythm has replaced Ju nctional rhythm QT has shortened HEMOGLOBIN AND Routine 02/20/2020 4:49 Results f or this HEMATOCRIT PM CDT procedure are i n the results section. BASIC METABOLIC PANEL Add-On 02/20/2020 4:47 Re sults for this (7) PM CDT procedure are i n the results section. POTASSIUM Routine 02/20/2020 4:47 Results for this PM CDT procedure are i n the results section. REPORT OF PROCEDURE - 02/20/2020 1:44 ENDOSCOPY URL PM CDT POTASSIUM Routine 02/20/2020 9:36 Results for this AM CDT procedure are i n the results section. CBC W/PLT COUNT & AUTO Routine 02/20/2020 5:02 R esults for this DIFFERENTIAL AM CDT procedure are i n the results section. CBC W/PLT COUNT & AUTO Routine 02/20/2020 5:02 R esults for this DIFFERENTIAL AM CDT procedure are i n the results section. MAGNESIUM Routine 02/20/2020 5:02 Results for this AM CDT procedure are i n the results section. HEPATIC FUNCTION PANEL Routine 02/20/2020 5:02 R esults for this AM CDT procedure are i n the results section. BASIC METABOLIC PANEL Routine 02/20/2020 5:02 Re sults for this (7) AM CDT procedure are i n the results section. PROTHROMBIN TIME/INR Routine 02/20/2020 5:02 Res ults for this AM CDT procedure are i n the results section. TISSUE EXAM AP Routine 02/19/2020 1:22 Results for this PM CDT procedure are i n the results section. UPPER ENDOSCOPY,BIOPSY 02/19/2020 1:00 Chronic biliar y PM CDT pancreatitis (HCC) UPPER ENDOSCOPY,FNA 02/19/2020 1:00 Chronic biliary W/ULTRASOUND PM CDT pancreatitis (HCC) CBC W/PLT COUNT & AUTO Routine 02/19/2020 4:20 R esults for this DIFFERENTIAL AM CDT procedure are i n the results section. CBC W/PLT COUNT & AUTO Routine 02/19/2020 4:20 R esults for this DIFFERENTIAL AM CDT procedure are i n the results section. MAGNESIUM Routine 02/19/2020 4:20 Results for this AM CDT procedure are i n the results section. HEPATIC FUNCTION PANEL Routine 02/19/2020 4:20 R esults for this AM CDT procedure are i n the results section. BASIC METABOLIC PANEL Routine 02/19/2020 4:20 Re sults for this (7) AM CDT procedure are i n the results section. PROTHROMBIN TIME/INR Routine 02/19/2020 4:20 Res ults for this AM CDT procedure are i n the results section. CBC W/PLT COUNT & AUTO Routine 02/18/2020 6:50 R esults for this DIFFERENTIAL AM CDT procedure are i n the results section. CBC W/PLT COUNT & AUTO Routine 02/18/2020 6:50 R esults for this DIFFERENTIAL AM CDT procedure are i n the results section. MAGNESIUM Routine 02/18/2020 5:26 Results for this AM CDT procedure are i n the results section. HEPATIC FUNCTION PANEL Routine 02/18/2020 5:26 R esults for this AM CDT procedure are i n the results section. BASIC METABOLIC PANEL Routine 02/18/2020 5:26 Re sults for this (7) AM CDT procedure are i n the results section. SARS-COV2/RT-PCR ([facility] Routine 02/17/2020 8:42 R esults for this & REF LABS) PM CDT procedure are i n the results section. CBC W/PLT COUNT & AUTO Routine 02/17/2020 3:36 R esults for this DIFFERENTIAL AM CDT procedure are i n the results section. CBC W/PLT COUNT & AUTO Routine 02/17/2020 3:36 R esults for this DIFFERENTIAL AM CDT procedure are i n the results section. MAGNESIUM Routine 02/17/2020 3:36 Results for this AM CDT procedure are i n the results section. HEPATIC FUNCTION PANEL Routine 02/17/2020 3:36 R esults for this AM CDT procedure are i n the results section. BASIC METABOLIC PANEL Routine 02/17/2020 3:36 Re sults for this (7) AM CDT procedure are i n the results section. C-REACTIVE PROTEIN Routine 02/17/2020 3:36 Resul ts for this AM CDT procedure are i n the results section. IMMUNOGLOBULIN G (IGG) Routine 02/17/2020 3:36 R esults for this AM CDT procedure are i n the results section. IGG SUBCLASS-4 ONLY Routine 02/17/2020 3:36 Resu lts for this AM CDT procedure are i n the results section. ANTI-NUCLEAR ANTIBODY Routine 02/17/2020 3:36 Re sults for this (ESMER) AM CDT procedure are i n the results section. TRANSFUSION SERVICE 02/16/2020 6:02 REPORT - SCAN PM CDT BASIC METABOLIC PANEL Routine 02/16/2020 5:23 Re sults for this (7) PM CDT procedure are i n the results section. MAGNESIUM Routine 02/16/2020 5:23 Results for this PM CDT procedure are i n the results section. MISCELLANEOUS LAB Routine 02/16/2020 5:23 ORDER PM CDT ECG 12-LEAD Routine 02/16/2020 4:10 PM CDT Procedure Note - Interface, External Ris In - 02/16/2020 4:09 PM CDT Ventricular Rate 75 BPM Atrial Rate 75 BPM P-R Interval 132 ms QRS Duration 86 ms Q-T Interval 394 ms QTC Calculation(Bazett) 439 ms R [place] 66 degrees T [place] 52 degrees Normal sinus rhythm Early repolarization Normal ECG When compared with ECG of 15:17, Vent. rate has decreased BY 73 BPM ECG 12-LEAD Routine 02/16/2020 4:10 PM CDT Resu lts for this procedure are i n the results section . CBC W/PLT COUNT & AUTO Routine 02/16/2020 4:32 AM CDT Results for this DIFFERENTIAL procedure are i n the results section . CBC W/PLT COUNT & AUTO Routine 02/16/2020 4:32 AM CDT Results for this DIFFERENTIAL procedure are i n the results section . MAGNESIUM Routine 02/16/2020 4:32 AM CDT Resu lts for this procedure are i n the results section . HEPATIC FUNCTION PANEL Routine 02/16/2020 4:32 AM CDT Results for this procedure are i n the results section . BASIC METABOLIC PANEL (7) Routine 02/16/2020 4:32 AM CDT Results for this procedure are i n the results section . RAPID DRUG SCREEN, URINE Routine 02/16/2020 1:29 AM CDT Results for this procedure are i n the results section . PT/APTT STAT 02/15/2020 8:02 PM CDT Resu lts for this procedure are i n the results section . CT ABDOMEN/PELVIS WITH IV STAT 02/15/2020 6:50 PM CDT Results for this CONTRAST procedure are i n the results section . ED ECG INTERPRETATION Routine 02/15/2020 4:36 PM CDT Results for this procedure are i n the results section . CBC W/PLT COUNT & AUTO STAT 02/15/2020 3:35 PM CDT Results for this DIFFERENTIAL procedure are i n the results section . TYPE AND SCREEN, AUTOMATED STAT 02/15/2020 3:35 PM CDT Results for this procedure are i n the results section . COMPREHENSIVE METABOLIC STAT 02/15/2020 3:35 PM CDT Results for this PANEL procedure are i n the results section . LIPASE STAT 02/15/2020 3:35 PM CDT Resu lts for this procedure are i n the results section . CBC W/PLT COUNT & AUTO STAT 02/15/2020 3:35 PM CDT Results for this DIFFERENTIAL procedure are i n the results section . ECG 12-LEAD Routine 02/15/2020 3:17 PM CDT Resu lts for this procedure are i n the results section . ECG 12-LEAD Routine 02/15/2020 3:17 PM CDT Procedure Note - Interface, External Ris In - 02/15/2020 8:12 PM CDT Ventricular Rate 148 BPM Atrial Rate 148 BPM P-R Interval 124 ms QRS Duration 80 ms Q-T Interval 348 ms QTC Calculation(Bazett) 546 ms P [place] 73 degrees R [place] 84 degrees T [place] 69 degrees Sinus tachycardia Right atrial enlargement Borderline ECG When compared with ECG of 11:26, No significant change was fo und RHYTHM STRIP - SCAN 02/04/2020 12:10 PM CDT RHYTHM STRIP - SCAN 01/28/2020 2:50 PM CDT PROTHROMBIN TIME/INR Routine 01/26/2020 5:13 Res ults for AM CDT this procedure are in the results section. CBC W/PLT COUNT & Routine 01/25/2020 4:07 Result s for AUTO DIFFERENTIAL AM CDT this proce dure are in the results section. PROTHROMBIN TIME/INR Routine 01/25/2020 4:07 Res ults for AM CDT this procedure are in the results section. CBC W/PLT COUNT & Routine 01/25/2020 4:07 Result s for AUTO DIFFERENTIAL AM CDT this proce dure are in the results section. PHOSPHORUS Routine 01/25/2020 4:07 Results for AM CDT this procedure are in the results section. MAGNESIUM Routine 01/25/2020 4:07 Results for AM CDT this procedure are in the results section. HEPATIC FUNCTION Routine 01/25/2020 4:07 Results for PANEL AM CDT this procedure are in the results section. BASIC METABOLIC Routine 01/25/2020 4:07 Results for PANEL (7) AM CDT this procedure are in the results section. CT ABD/PELVIS - STAT 01/25/2020 12:40 Results for PANCREAS EVALUATION AM CDT this pro cedure are in the results section. SARS-COV2/RT-PCR Routine 01/24/2020 6:32 Results for ([facility] & REF LAB[facility]) PM CDT this proce dure are in the results section. PROTHROMBIN TIME/INR Routine 01/24/2020 12:36 Res ults for PM CDT this procedure are in the results section. CBC W/PLT COUNT & Routine 01/24/2020 4:00 Result s for AUTO DIFFERENTIAL AM CDT this proce dure are in the results section. CBC W/PLT COUNT & Routine 01/24/2020 4:00 Result s for AUTO DIFFERENTIAL AM CDT this proce dure are in the results section. PHOSPHORUS Routine 01/24/2020 4:00 Results for AM CDT this procedure are in the results section. MAGNESIUM Routine 01/24/2020 4:00 Results for AM CDT this procedure are in the results section. HEPATIC FUNCTION Routine 01/24/2020 4:00 Results for PANEL AM CDT this procedure are in the results section. BASIC METABOLIC Routine 01/24/2020 4:00 Results for PANEL (7) AM CDT this procedure are in the results section. CBC (HEMOGRAM ONLY) Routine 01/23/2020 7:53 Resu lts for PM CDT this procedure are in the results section. ETHANOL Routine 01/23/2020 7:53 Results for PM CDT this procedure are in the results section. PROTHROMBIN TIME/INR Routine 01/23/2020 1:34 Res ults for PM CDT this procedure are in the results section. CBC (HEMOGRAM ONLY) Routine 01/23/2020 10:52 Resu lts for AM CDT this procedure are in the results section. CBC W/PLT COUNT & Routine 01/23/2020 5:06 Result s for AUTO DIFFERENTIAL AM CDT this proce dure are in the results section. LACTIC ACID, VENOUS Routine 01/23/2020 5:06 Resu lts for AM CDT this procedure are in the results section. CBC W/PLT COUNT & Routine 01/23/2020 5:06 Result s for AUTO DIFFERENTIAL AM CDT this proce dure are in the results section. PHOSPHORUS Routine 01/23/2020 5:06 Results for AM CDT this procedure are in the results section. MAGNESIUM Routine 01/23/2020 5:06 Results for AM CDT this procedure are in the results section. HEPATIC FUNCTION Routine 01/23/2020 5:06 Results for PANEL AM CDT this procedure are in the results section. BASIC METABOLIC Routine 01/23/2020 5:06 Results for PANEL (7) AM CDT this procedure are in the results section. SARS-COV2/RT-PCR STAT 01/22/2020 11:49 Results for ([facility] & REF LAB[facility]) PM CDT this proce dure are in the results section. CBC W/PLT COUNT & STAT 01/22/2020 6:24 Result s for AUTO DIFFERENTIAL PM CDT this proce dure are in the results section. COMPREHENSIVE STAT 01/22/2020 6:24 Results fo r METABOLIC PANEL PM CDT this procedu re are in the results section. LIPASE STAT 01/22/2020 6:24 Results for PM CDT this procedure are in the results section. PT/APTT STAT 01/22/2020 6:24 Results for PM CDT this procedure are in the results section. CBC W/PLT COUNT & STAT 01/22/2020 6:24 Result s for AUTO DIFFERENTIAL PM CDT this proce dure are in the results section. RHYTHM STRIP - SCAN 12/29/2019 1:11 PM CDT PROTHROMBIN TIME/INR Routine 12/26/2019 3:56 Res ults for AM CDT this procedure are in the results section. PROTHROMBIN TIME/INR Routine 12/25/2019 4:15 Res ults for AM CDT this procedure are in the results section. PROTHROMBIN TIME/INR Routine 12/24/2019 3:55 Res ults for AM CDT this procedure are in the results section. PROTHROMBIN TIME/INR Routine 12/23/2019 5:10 Res ults for AM CDT this procedure are in the results section. CBC W/PLT COUNT & Routine 12/22/2019 4:52 Result s for AUTO DIFFERENTIAL AM CDT this proce dure are in the results section. PROTHROMBIN TIME/INR Routine 12/22/2019 4:52 Res ults for AM CDT this procedure are in the results section. PROTHROMBIN TIME/INR Routine 12/22/2019 4:52 Res ults for AM CDT this procedure are in the results section. BASIC METABOLIC Routine 12/22/2019 4:52 Results for PANEL (7) AM CDT this procedure are in the results section. CBC W/PLT COUNT & Routine 12/22/2019 4:52 Result s for AUTO DIFFERENTIAL AM CDT this proce dure are in the results section. POCT-GLUCOSE METER Routine 12/21/2019 5:31 Resul ts for PM CDT this procedure are in the results section. CBC W/PLT COUNT & Routine 12/21/2019 4:27 Result s for AUTO DIFFERENTIAL AM CDT this proce dure are in the results section. PROTHROMBIN TIME/INR Routine 12/21/2019 4:27 Res ults for AM CDT this procedure are in the results section. BASIC METABOLIC Routine 12/21/2019 4:27 Results for PANEL (7) AM CDT this procedure are in the results section. CBC W/PLT COUNT & Routine 12/21/2019 4:27 Result s for AUTO DIFFERENTIAL AM CDT this proce dure are in the results section. PROTHROMBIN TIME/INR Routine 12/20/2019 3:53 Res ults for AM CDT this procedure are in the results section. BASIC METABOLIC Routine 12/20/2019 3:53 Results for PANEL (7) AM CDT this procedure are in the results section. TRANSFUSION SERVICE 12/19/2019 5:51 REPORT - SCAN PM CDT CBC W/PLT COUNT & Routine 12/19/2019 5:37 Result s for AUTO DIFFERENTIAL AM CDT this proce dure are in the results section. COMPREHENSIVE Routine 12/19/2019 5:37 Results fo r METABOLIC PANEL AM CDT this procedu re are in the results section. CBC W/PLT COUNT & Routine 12/19/2019 5:37 Result s for AUTO DIFFERENTIAL AM CDT this proce dure are in the results section. PROTHROMBIN TIME/INR Routine 12/19/2019 5:37 Res ults for AM CDT this procedure are in the results section. POCT-GLUCOSE METER Routine 12/18/2019 9:47 Resul ts for PM CDT this procedure are in the results section. DRUG SCREEN, URINE, Routine 12/18/2019 10:28 COMPREHENSIVE AM CDT URINALYSIS WITH Routine 12/18/2019 10:28 Results for MICROSCOPIC IF AM CDT this procedur e INDICATED are in the results section. RAPID DRUG SCREEN, STAT 12/18/2019 10:28 Resul ts for URINE AM CDT this procedure are in the results section. LACTIC ACID, VENOUS STAT 12/18/2019 10:26 Resu lts for AM CDT this procedure are in the results section. TROPONIN I Routine 12/18/2019 10:26 Results for AM CDT this procedure are in the results section. POCT-GLUCOSE METER Routine 12/18/2019 6:52 Resul ts for AM CDT this procedure are in the results section. BLOOD GAS, ARTERIAL STAT 12/18/2019 6:43 Resu lts for AM CDT this procedure are in the results section. POCT-GLUCOSE METER Routine 12/18/2019 6:23 Resul ts for AM CDT this procedure are in the results section. CBC W/PLT COUNT & Routine 12/18/2019 2:29 Result s for AUTO DIFFERENTIAL AM CDT this proce dure are in the results section. TYPE AND SCREEN, STAT 12/18/2019 2:29 Results for AUTOMATED AM CDT this procedure are in the results section. CBC W/PLT COUNT & Routine 12/18/2019 2:29 Result s for AUTO DIFFERENTIAL AM CDT this proce dure are in the results section. PROTHROMBIN TIME/INR Routine 12/18/2019 2:29 Res ults for AM CDT this procedure are in the results section. BASIC METABOLIC Routine 12/18/2019 2:29 Results for PANEL (7) AM CDT this procedure are in the results section. TROPONIN I Routine 12/18/2019 2:29 Results for AM CDT this procedure are in the results section. LACTIC ACID, VENOUS STAT 12/18/2019 2:29 Resu lts for AM CDT this procedure are in the results section. SARS-COV2/RT-PCR STAT 12/18/2019 12:15 Results for ([facility] & REF LAB[facility]) AM CDT this proce dure are in the results section. BLOOD CULTURE STAT 12/17/2019 10:07 Results fo r PM CDT this procedure are in the results section. BLOOD CULTURE STAT 12/17/2019 10:07 Results fo r PM CDT this procedure are in the results section. CT ABDOMEN/PELVIS STAT 12/17/2019 10:04 Result s for WITH IV CONTRAST PM CDT this proced ure are in the results section. LACTIC ACID, VENOUS STAT 12/17/2019 8:35 Resu lts for PM CDT this procedure are in the results section. PT/APTT STAT 12/17/2019 8:10 Results for PM CDT this procedure are in the results section. OCCULT BLOOD, STOOL STAT 12/17/2019 8:10 Resu lts for PM CDT this procedure are in the results section. CBC W/PLT COUNT & STAT 12/17/2019 8:04 Result s for AUTO DIFFERENTIAL PM CDT this proce dure are in the results section. COMPREHENSIVE STAT 12/17/2019 8:04 Results fo r METABOLIC PANEL PM CDT this procedu re are in the results section. LIPASE STAT 12/17/2019 8:04 Results for PM CDT this procedure are in the results section. CBC W/PLT COUNT & STAT 12/17/2019 8:04 Result s for AUTO DIFFERENTIAL PM CDT this proce dure are in the results section. RHYTHM STRIP - SCAN 12/03/2019 1:10 PM CDT CBC W/PLT COUNT & Routine 12/01/2019 3:42 Result s for AUTO DIFFERENTIAL AM CDT this proce dure are in the results section. PROTHROMBIN TIME/INR Routine 12/01/2019 3:42 Res ults for AM CDT this procedure are in the results section. BASIC METABOLIC Routine 12/01/2019 3:42 Results for PANEL (7) AM CDT this procedure are in the results section. CBC W/PLT COUNT & Routine 12/01/2019 3:42 Result s for AUTO DIFFERENTIAL AM CDT this proce dure are in the results section. CBC W/PLT COUNT & Routine 11/30/2019 5:53 Result s for AUTO DIFFERENTIAL AM CDT this proce dure are in the results section. PROTHROMBIN TIME/INR Routine 11/30/2019 5:53 Res ults for AM CDT this procedure are in the results section. BASIC METABOLIC Routine 11/30/2019 5:53 Results for PANEL (7) AM CDT this procedure are in the results section. CBC W/PLT COUNT & Routine 11/30/2019 5:53 Result s for AUTO DIFFERENTIAL AM CDT this proce dure are in the results section. CBC W/PLT COUNT & Routine 11/29/2019 4:24 Result s for AUTO DIFFERENTIAL AM CDT this proce dure are in the results section. PROTHROMBIN TIME/INR Routine 11/29/2019 4:24 Res ults for AM CDT this procedure are in the results section. BASIC METABOLIC Routine 11/29/2019 4:24 Results for PANEL (7) AM CDT this procedure are in the results section. CBC W/PLT COUNT & Routine 11/29/2019 4:24 Result s for AUTO DIFFERENTIAL AM CDT this proce dure are in the results section. PROTHROMBIN TIME/INR Routine 11/29/2019 4:24 Res ults for AM CDT this procedure are in the results section. PROTHROMBIN TIME/INR Routine 11/28/2019 3:33 Res ults for AM CDT this procedure are in the results section. BASIC METABOLIC Routine 11/28/2019 3:32 Results for PANEL (7) AM CDT this procedure are in the results section. CBC (HEMOGRAM ONLY) Routine 11/28/2019 3:32 Resu lts for AM CDT this procedure are in the results section. BASIC METABOLIC Routine 11/27/2019 3:46 Results for PANEL (7) AM CDT this procedure are in the results section. PROTHROMBIN TIME/INR Routine 11/27/2019 3:46 Res ults for AM CDT this procedure are in the results section. CBC W/PLT COUNT & Routine 11/27/2019 3:45 Result s for AUTO DIFFERENTIAL AM CDT this proce dure are in the results section. CBC W/PLT COUNT & Routine 11/27/2019 3:45 Result s for AUTO DIFFERENTIAL AM CDT this proce dure are in the results section. BASIC METABOLIC Routine 11/26/2019 4:26 Results for PANEL (7) AM CDT this procedure are in the results section. PROTHROMBIN TIME/INR Routine 11/26/2019 3:43 Res ults for AM CDT this procedure are in the results section. CBC (HEMOGRAM ONLY) Routine 11/26/2019 3:43 Resu lts for AM CDT this procedure are in the results section. US RENAL COMPLETE Routine 11/25/2019 1:15 Result s for PM CDT this procedure are in the results section. ALDOSTERONE Routine 11/25/2019 11:09 Results for AM CDT this procedure are in the results section. CORTISOL Routine 11/25/2019 11:09 Results for AM CDT this procedure are in the results section. PROTHROMBIN TIME/INR Routine 11/25/2019 3:26 Res ults for AM CDT this procedure are in the results section. BASIC METABOLIC Routine 11/25/2019 3:26 Results for PANEL (7) AM CDT this procedure are in the results section. CBC (HEMOGRAM ONLY) Routine 11/25/2019 3:26 Resu lts for AM CDT this procedure are in the results section. CBC W/PLT COUNT & Routine 11/24/2019 3:33 Result s for AUTO DIFFERENTIAL AM CDT this proce dure are in the results section. BASIC METABOLIC Routine 11/24/2019 3:33 Results for PANEL (7) AM CDT this procedure are in the results section. CBC W/PLT COUNT & Routine 11/24/2019 3:33 Result s for AUTO DIFFERENTIAL AM CDT this proce dure are in the results section. BASIC METABOLIC Routine 11/23/2019 2:37 Results for PANEL (7) PM CDT this procedure are in the results section. BASIC METABOLIC Routine 11/23/2019 5:56 Results for PANEL (7) AM CDT this procedure are in the results section. CBC (HEMOGRAM ONLY) Routine 11/23/2019 5:56 Resu lts for AM CDT this procedure are in the results section. BASIC METABOLIC Routine 11/22/2019 5:19 Results for PANEL (7) PM CDT this procedure are in the results section. COMPREHENSIVE Routine 11/22/2019 8:17 Results fo r METABOLIC PANEL AM CDT this procedu re are in the results section. CBC W/PLT COUNT & Routine 11/22/2019 5:29 Result s for AUTO DIFFERENTIAL AM CDT this proce dure are in the results section. CBC W/PLT COUNT & Routine 11/22/2019 5:29 Result s for AUTO DIFFERENTIAL AM CDT this proce dure are in the results section. REPORT OF PROCEDURE 11/21/2019 3:07 - ENDOSCOPY URL PM CDT COLONOSCOPY 11/21/2019 1:45 Gastrointestinal PM CDT hemorrhage, unspecified gastrointestinal hemorrhage type BASIC METABOLIC Routine 11/21/2019 3:35 Results for PANEL (7) AM CDT this procedure are in the results section. CBC (HEMOGRAM ONLY) Routine 11/21/2019 3:35 Resu lts for AM CDT this procedure are in the results section. CBC (HEMOGRAM ONLY) Routine 11/20/2019 3:35 Resu lts for AM CDT this procedure are in the results section. BASIC METABOLIC Routine 11/20/2019 3:35 Results for PANEL (7) AM CDT this procedure are in the results section. [id number] Routine 11/19/2019 4:29 Resu lts for I IGA AM CDT this procedure are in the results section. [id number] Routine 11/19/2019 4:29 Resu lts for I IGM AM CDT this procedure are in the results section. [id number] Routine 11/19/2019 4:29 Resu lts for I IGG AM CDT this procedure are in the results section. FACTOR 5 LEIDEN PCR Routine 11/19/2019 4:29 Resu lts for (THROMBOTIC RISK) AM CDT this proce dure are in the results section. PROTHROMBIN GENE Routine 11/19/2019 4:29 Results for MUTATION AM CDT this procedure are in the results section. BETA-2 GLYCOPROTEIN Routine 11/19/2019 4:29 Resu lts for ANTIBODIES AM CDT this procedure are in the results section. CARDIOLIPIN Routine 11/19/2019 4:29 Results for ANTIBODIES, IGG AND AM CDT this pro cedure IGM are in the results section. JAK2 MUTATION Routine 11/19/2019 4:29 Results fo r ([id number]) QUANTITATIVE AM CDT this pr ocedure are in the results section. CBC (HEMOGRAM ONLY) Routine 11/19/2019 4:29 Resu lts for AM CDT this procedure are in the results section. BASIC METABOLIC Routine 11/19/2019 4:29 Results for PANEL (7) AM CDT this procedure are in the results section. BASIC METABOLIC Routine 11/18/2019 3:08 Results for PANEL (7) PM CDT this procedure are in the results section. CBC W/PLT COUNT & Routine 11/18/2019 3:33 Result s for AUTO DIFFERENTIAL AM CDT this proce dure are in the results section. LACTIC ACID, VENOUS Routine 11/18/2019 3:33 Resu lts for AM CDT this procedure are in the results section. CBC W/PLT COUNT & Routine 11/18/2019 3:33 Result s for AUTO DIFFERENTIAL AM CDT this proce dure are in the results section. COMPREHENSIVE Routine 11/18/2019 3:33 Results fo r METABOLIC PANEL AM CDT this procedu re are in the results section. CBC W/PLT COUNT & Routine 11/17/2019 9:36 Result s for AUTO DIFFERENTIAL PM CDT this proce dure are in the results section. PROCALCITONIN Routine 11/17/2019 9:36 Results fo r PM CDT this procedure are in the results section. LACTIC ACID, VENOUS Routine 11/17/2019 9:36 Resu lts for PM CDT this procedure are in the results section. COMPREHENSIVE Routine 11/17/2019 9:36 Results fo r METABOLIC PANEL PM CDT this procedu re are in the results section. CBC W/PLT COUNT & Routine 11/17/2019 9:36 Result s for AUTO DIFFERENTIAL PM CDT this proce dure are in the results section. TROPONIN I STAT 11/17/2019 9:36 Results for PM CDT this procedure are in the results section. REPORT OF PROCEDURE 11/17/2019 2:40 - ENDOSCOPY SCAN PM CDT MR ABDOMEN WITH & CRYSTAL 11/17/2019 9:08 Result s for WITHOUT IV CONTRAST AM CDT this pro cedure are in the results section. ETHANOL Routine 11/14/2019 7:05 Results for PM CDT this procedure are in the results section. TROPONIN I STAT 11/14/2019 7:05 Results for PM CDT this procedure are in the results section. ECG 12-LEAD STAT 11/14/2019 11:26 Results for AM CDT this procedure are in the results section. CBC W/PLT COUNT & STAT 11/14/2019 11:17 Result s for AUTO DIFFERENTIAL AM CDT this proce dure are in the results section. TROPONIN I STAT 11/14/2019 11:17 Results for AM CDT this procedure are in the results section. PHOSPHORUS STAT 11/14/2019 11:17 Results for AM CDT this procedure are in the results section. MAGNESIUM STAT 11/14/2019 11:17 Results for AM CDT this procedure are in the results section. PROTHROMBIN TIME/INR STAT 11/14/2019 11:17 Res ults for AM CDT this procedure are in the results section. CBC W/PLT COUNT & STAT 11/14/2019 11:17 Result s for AUTO DIFFERENTIAL AM CDT this proce dure are in the results section. LIPASE STAT 11/14/2019 11:17 Results for AM CDT this procedure are in the results section. HEPATIC FUNCTION STAT 11/14/2019 11:17 Results for PANEL AM CDT this procedure are in the results section. BASIC METABOLIC STAT 11/14/2019 11:17 Results for PANEL (7) AM CDT this procedure are in the results section. XR CHEST 1 VIEW STAT 11/14/2019 11:14 Results for PORTABLE/BEDSIDE AM CDT this proced ure are in the results section. RHYTHM STRIP - SCAN 11/12/2019 8:30 AM CDT RHYTHM STRIP - SCAN 11/10/2019 1:37 PM CDT BASIC METABOLIC Routine 11/10/2019 5:21 Results for PANEL (7) AM CDT this procedure are in the results section. CORTISOL,60 MIN Routine 11/09/2019 3:36 Results for PM CDT this procedure are in the results section. CORTISOL,30 MIN Routine 11/09/2019 3:10 Results for PM CDT this procedure are in the results section. ACTH STIMULATION Routine 11/09/2019 3:10 Results for PM CDT this procedure are in the results section. BASIC METABOLIC Routine 11/09/2019 3:10 Results for PANEL (7) PM CDT this procedure are in the results section. CORTISOL,BASELINE Routine 11/09/2019 2:27 Result s for PM CDT this procedure are in the results section. ACTH STIMULATION Routine 11/09/2019 2:27 Results for PM CDT this procedure are in the results section. CORTISOL Routine 11/08/2019 8:22 Results for AM CDT this procedure are in the results section. ALDOSTERONE Routine 11/08/2019 8:22 Results for AM CDT this procedure are in the results section. RENIN, PLASMA Routine 11/08/2019 8:22 Results fo r AM CDT this procedure are in the results section. BASIC METABOLIC Routine 11/08/2019 4:14 Results for PANEL (7) AM CDT this procedure are in the results section. CBC (HEMOGRAM ONLY) Routine 11/08/2019 4:14 Resu lts for AM CDT this procedure are in the results section. REPORT OF PROCEDURE 11/07/2019 12:17 - ENDOSCOPY URL PM CDT TISSUE EXAM AP Routine 11/07/2019 11:22 Results for AM CDT this procedure are in the results section. UPPER 11/07/2019 10:00 Abdominal pain, ENDOSCOPY,BIOPSY AM CDT unspecified abdominal location Special Needs (LINEAR SCOPE) UPPER ENDOSCOPY,FNA 11/07/2019 10:00 AM CDT Abdominal pain, unspecified W/ULTRASOUND abdominal location Special Needs (LINEAR SCOPE) HEPATIC FUNCTION PANEL Routine 11/07/2019 4:27 R esults for this AM CDT procedure are i n the results section. BASIC METABOLIC PANEL Routine 11/07/2019 4:27 Re sults for this (7) AM CDT procedure are i n the results section. CBC (HEMOGRAM ONLY) Routine 11/07/2019 4:27 Resu lts for this AM CDT procedure are i n the results section. BASIC METABOLIC PANEL Routine 11/06/2019 4:49 Re sults for this (7) PM CDT procedure are i n the results section. CREATININE, RANDOM Routine 11/06/2019 11:29 Resul ts for this URINE AM CDT procedure are i n the results section. UREA NITROGEN, RANDOM Routine 11/06/2019 11:29 Re sults for this URINE AM CDT procedure are i n the results section. CHLORIDE, RANDOM URINE Routine 11/06/2019 11:29 R esults for this AM CDT procedure are i n the results section. POTASSIUM, RANDOM Routine 11/06/2019 11:29 Result s for this URINE AM CDT procedure are i n the results section. SODIUM, RANDOM URINE Routine 11/06/2019 11:29 Res ults for this AM CDT procedure are i n the results section. HAPTOGLOBIN Routine 11/06/2019 4:35 Results for this AM CDT procedure are i n the results section. BASIC METABOLIC PANEL Routine 11/06/2019 4:35 Re sults for this (7) AM CDT procedure are i n the results section. LACTATE DEHYDROGENASE Routine 11/06/2019 4:35 Re sults for this (LDH) AM CDT procedure are i n the results section. POTASSIUM-STAT LAB Routine 11/05/2019 12:29 Resul ts for this PM CDT procedure are i n the results section. CREATININE, RANDOM Routine 11/05/2019 8:20 Resul ts for this URINE AM CDT procedure are i n the results section. UREA NITROGEN, RANDOM Routine 11/05/2019 8:20 Re sults for this URINE AM CDT procedure are i n the results section. CHLORIDE, RANDOM URINE Routine 11/05/2019 8:20 R esults for this AM CDT procedure are i n the results section. POTASSIUM, RANDOM Routine 11/05/2019 8:20 Result s for this URINE AM CDT procedure are i n the results section. SODIUM, RANDOM URINE Routine 11/05/2019 8:20 Res ults for this AM CDT procedure are i n the results section. URINALYSIS WITH Routine 11/05/2019 8:20 Results for this MICROSCOPIC IF AM CDT procedure are in INDICATED the results section. BASIC METABOLIC PANEL Routine 11/05/2019 4:09 Re sults for this (7) AM CDT procedure are i n the results section. PANCREATIC ELASTASE, Routine 11/05/2019 2:11 Res ults for this FECAL AM CDT procedure are i n the results section. POCT-GLUCOSE METER Routine 11/04/2019 11:35 Resul ts for this PM CDT procedure are i n the results section. BASIC METABOLIC PANEL Routine 11/04/2019 9:37 Re sults for this (7) PM CDT procedure are i n the results section. POTASSIUM Routine 11/04/2019 2:59 Results for this PM CDT procedure are i n the results section. 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 ACTH Routine 11/04/2019 10:35 Results for this AM CDT procedure are i n the results section. CORTISOL Routine 11/04/2019 10:35 Results for this AM CDT procedure are i n the results section. ACTH Routine 11/04/2019 9:49 Results for this AM CDT procedure are i n the results section. CORTISOL Routine 11/04/2019 9:49 Results for this AM CDT procedure are i n the results section. POTASSIUM-STAT LAB STAT 11/04/2019 9:02 Resul ts for this AM CDT procedure are i n the results section. BASIC METABOLIC PANEL Routine 11/04/2019 9:02 Re sults for this (7) AM CDT procedure are i n the results section. CORTISOL Routine 11/04/2019 5:52 Results for this AM CDT procedure are i n the results section. BASIC METABOLIC PANEL Routine 11/04/2019 5:52 Re sults for this (7) AM CDT procedure are i n the results section. POCT-GLUCOSE METER Routine 11/04/2019 2:12 Resul ts for this AM CDT procedure are i n the results section. ECG 12-LEAD Routine 11/04/2019 1:36 AM CDT Procedure Note - Interface, External Ris In - 11/04/2019 1:41 AM CDT Ventricular Rate 76 BPM Atrial Rate 76 BPM P-R Interval 130 ms QRS Duration 86 ms Q-T Interval 356 ms QTC Calculation(Bazett) 400 ms P [place] 55 degrees R [place] 62 degrees T [place] 62 degrees Normal sinus rhythm Normal ECG When compared with ECG of 06:37, No significant change was fo und ECG 12-LEAD Routine 11/04/2019 1:36 AM CDT Resu lts for this procedure are i n the results section . POTASSIUM CRYSTAL 11/03/2019 11:35 PM CDT Resu lts for this procedure are i n the results section . URINALYSIS WITH Routine 11/03/2019 5:17 PM CDT R esults for this MICROSCOPIC IF INDICATED pro cedure are in the results section . OSMOLALITY, URINE Routine 11/03/2019 5:16 PM CDT Results for this procedure are i n the results section . ALDOSTERONE Routine 11/03/2019 4:25 PM CDT Resu lts for this procedure are i n the results section . RENIN, PLASMA Routine 11/03/2019 4:25 PM CDT Res ults for this procedure are i n the results section . OSMOLALITY, SERUM Routine 11/03/2019 4:25 PM CDT Results for this procedure are i n the results section . POTASSIUM-STAT LAB STAT 11/03/2019 12:44 PM CDT Results for this procedure are i n the results section . CREATININE, RANDOM URINE Routine 11/03/2019 11:39 AM CDT Results for this procedure are i n the results section . UREA NITROGEN, RANDOM Routine 11/03/2019 11:39 AM CDT Results for this URINE procedure are i n the results section . CHLORIDE, RANDOM URINE Routine 11/03/2019 11:39 AM CDT Results for this procedure are i n the results section . POTASSIUM, RANDOM URINE Routine 11/03/2019 11:39 AM CDT Results for this procedure are i n the results section . SODIUM, RANDOM URINE Routine 11/03/2019 11:39 AM CDT Results for this procedure are i n the results section . POTASSIUM Routine 11/03/2019 11:07 AM CDT Resu lts for this procedure are i n the results section . LACTIC ACID, VENOUS STAT 11/03/2019 11:07 AM CDT Results for this procedure are i n the results section . CREATINE KINASE (CK) STAT Add-on 11/03/2019 7:34 AM CDT Results for this procedure are i n the results section . BASIC METABOLIC PANEL (7) STAT 11/03/2019 7:34 AM CDT Results for this procedure are i n the results section . ECG 12-LEAD STAT 11/03/2019 6:37 AM CDT Resu lts for this procedure are i n the results section . ECG 12-LEAD Routine 11/03/2019 6:36 AM CDT Resu lts for this procedure are i n the results section . CBC W/PLT COUNT & AUTO Routine 11/03/2019 4:54 AM CDT Results for this DIFFERENTIAL procedure are i n the results section . MAGNESIUM Routine 11/03/2019 4:54 AM CDT Resu lts for this procedure are i n the results section . CBC W/PLT COUNT & AUTO Routine 11/03/2019 4:54 AM CDT Results for this DIFFERENTIAL procedure are i n the results section . PHOSPHORUS Routine 11/03/2019 4:54 AM CDT Resu lts for this procedure are i n the results section . CALCIUM, IONIZED Routine 11/03/2019 4:54 AM CDT Results for this procedure are i n the results section . BASIC METABOLIC PANEL (7) Routine 11/03/2019 4:54 AM CDT Results for this procedure are i n the results section . ECG 12-LEAD Routine 11/02/2019 6:35 PM CDT Procedure Note - Interface, External Ris In - 11/02/2019 6:38 PM CDT Ventricular Rate 76 BPM Atrial Rate 76 BPM P-R Interval 136 ms QRS Duration 90 ms Q-T Interval 352 ms QTC Calculation(Bazett) 396 ms P [place] 46 degrees R [place] 54 degrees T [place] 50 degrees Normal sinus rhythm Normal ECG When compared with ECG of 09:38, Vent. rate has decreased BY 63 BPM ECG 12-LEAD Routine 11/02/2019 6:35 PM CDT Resu lts for this procedure are i n the results section . BASIC METABOLIC PANEL (7) Routine 11/02/2019 5:48 PM CDT Results for this procedure are i n the results section . POCT-GLUCOSE METER Routine 11/02/2019 2:54 PM CDT Results for this procedure are i n the results section . BASIC METABOLIC PANEL (7) Routine 11/02/2019 12:25 PM CDT Results for this procedure are i n the results section . COMPREHENSIVE METABOLIC Routine 11/02/2019 6:24 AM CDT Results for this PANEL procedure are i n the results section . CBC W/PLT COUNT & AUTO Routine 11/02/2019 4:27 AM CDT Results for this DIFFERENTIAL procedure are i n the results section . MAGNESIUM Routine 11/02/2019 4:27 AM CDT Resu lts for this procedure are i n the results section . CBC W/PLT COUNT & AUTO Routine 11/02/2019 4:27 AM CDT Results for this DIFFERENTIAL procedure are i n the results section . PHOSPHORUS Routine 11/02/2019 4:27 AM CDT Resu lts for this procedure are i n the results section . CALCIUM, IONIZED Routine 11/02/2019 4:27 AM CDT Results for this procedure are i n the results section . MR ABDOMEN WITH & WITHOUT IV Routine 11/01/2019 2:40 PM CDT Results for this CONTRAST procedure are i n the results section . CBC W/PLT COUNT & AUTO Routine 11/01/2019 4:51 AM CDT Results for this DIFFERENTIAL procedure are i n the results section . MAGNESIUM Routine 11/01/2019 4:51 AM CDT Resu lts for this procedure are i n the results section . CBC W/PLT COUNT & AUTO Routine 11/01/2019 4:51 AM CDT Results for this DIFFERENTIAL procedure are i n the results section . PHOSPHORUS Routine 11/01/2019 4:51 AM CDT Resu lts for this procedure are i n the results section . CALCIUM, IONIZED Routine 11/01/2019 4:51 AM CDT Results for this procedure are i n the results section . COMPREHENSIVE METABOLIC Routine 11/01/2019 4:51 AM CDT Results for this PANEL procedure are i n the results section . TRANSFUSION SERVICE REPORT - 10/31/2019 6:02 PM CDT SCAN CBC W/PLT COUNT & AUTO Routine 10/31/2019 4:20 AM CDT Results for this DIFFERENTIAL procedure are i n the results section . LACTIC ACID, VENOUS Routine 10/31/2019 4:20 AM CDT Results for this procedure are i n the results section . COMPREHENSIVE METABOLIC Routine 10/31/2019 4:20 AM CDT Results for this PANEL procedure are i n the results section . CBC W/PLT COUNT & AUTO Routine 10/31/2019 4:20 AM CDT Results for this DIFFERENTIAL procedure are i n the results section . CALCIUM, IONIZED Routine 10/31/2019 4:20 AM CDT Results for this procedure are i n the results section . PHOSPHORUS Routine 10/31/2019 4:20 AM CDT Resu lts for this procedure are i n the results section . MAGNESIUM Routine 10/31/2019 4:20 AM CDT Resu lts for this procedure are i n the results section . LIPID PANEL Routine 10/31/2019 4:20 AM CDT Resu lts for this procedure are i n the results section . HEMOGLOBIN A1C Routine 10/31/2019 4:20 AM CDT Re sults for this procedure are i n the results section . VITAMIN B12 AND FOLATE Routine 10/31/2019 4:20 AM CDT Results for this procedure are i n the results section . PROCALCITONIN Routine 10/30/2019 4:55 PM CDT Res ults for this procedure are i n the results section . LACTIC ACID, VENOUS Routine 10/30/2019 4:55 PM CDT Results for this procedure are i n the results section . TROPONIN I STAT 10/30/2019 2:40 PM CDT Resu lts for this procedure are i n the results section . LACTIC ACID, VENOUS STAT 10/30/2019 2:40 PM CDT Results for this procedure are i n the results section . TROPONIN I STAT 10/30/2019 1:49 PM CDT Resu lts for this procedure are i n the results section . CTA ABDOMEN & PELVIS STAT 10/30/2019 11:50 AM CDT Results for this procedure are i n the results section . CBC W/PLT COUNT & AUTO STAT 10/30/2019 10:14 AM CDT Results for this DIFFERENTIAL procedure are i n the results section . TYPE AND SCREEN, AUTOMATED STAT 10/30/2019 10:14 AM CDT Results for this procedure are i n the results section . LIPASE STAT 10/30/2019 10:14 AM CDT Resu lts for this procedure are i n the results section . HEPATIC FUNCTION PANEL STAT 10/30/2019 10:14 AM CDT Results for this procedure are i n the results section . BASIC METABOLIC PANEL (7) STAT 10/30/2019 10:14 AM CDT Results for this procedure are i n the results section . LACTIC ACID, VENOUS STAT 10/30/2019 10:14 AM CDT Results for this procedure are i n the results section . PT/APTT STAT 10/30/2019 10:14 AM CDT Resu lts for this procedure are i n the results section . TROPONIN I STAT 10/30/2019 10:14 AM CDT Resu lts for this procedure are i n the results section . CBC W/PLT COUNT & AUTO STAT 10/30/2019 10:14 AM CDT Results for this DIFFERENTIAL procedure are i n the results section . ECG 12-LEAD Routine 10/30/2019 9:38 AM CDT Resu lts for this procedure are i n the results section . ECG 12-LEAD Routine 10/30/2019 9:38 AM CDT Procedure Note - Interface, External Ris In - 10/30/2019 7:34 PM CDT Ventricular Rate 139 BPM Atrial Rate 139 BPM P-R Interval 128 ms QRS Duration 78 ms Q-T Interval 288 ms QTC Calculation(Bazett) 438 ms P [place] 75 degrees R [place] 80 degrees T [place] 71 degrees Sinus tachycardia Biatrial enlargement Abnormal ECG When compared with ECG of 02:14, Vent. rate has increased BY 62 BPM Nonspecific T wave abnormali ty no longer evident in Inferior leads CBC W/PLT COUNT & AUTO Routine 10/24/2019 4:22 AM CDT Results for this DIFFERENTIAL procedure are i n the results section . CBC W/PLT COUNT & AUTO Routine 10/24/2019 4:22 AM CDT Results for this DIFFERENTIAL procedure are i n the results section . BASIC METABOLIC PANEL (7) Routine 10/24/2019 4:22 AM CDT Results for this procedure are i n the results section . CBC W/PLT COUNT & AUTO Routine 10/23/2019 3:39 AM CDT Results for this DIFFERENTIAL procedure are i n the results section . CBC W/PLT COUNT & AUTO Routine 10/23/2019 3:39 AM CDT Results for this DIFFERENTIAL procedure are i n the results section . BASIC METABOLIC PANEL (7) Routine 10/23/2019 3:39 AM CDT Results for this procedure are i n the results section . CBC W/PLT COUNT & AUTO Routine 10/22/2019 3:26 AM CDT Results for this DIFFERENTIAL procedure are i n the results section . CBC W/PLT COUNT & AUTO Routine 10/22/2019 3:26 AM CDT Results for this DIFFERENTIAL procedure are i n the results section . BASIC METABOLIC PANEL (7) Routine 10/22/2019 3:26 AM CDT Results for this procedure are i n the results section . POCT-GLUCOSE METER Routine 10/21/2019 8:50 PM CDT Results for this procedure are i n the results section . CT ABDOMEN/PELVIS WITH IV STAT 10/21/2019 3:56 PM CDT Results for this CONTRAST procedure are i n the results section . CBC W/PLT COUNT & AUTO STAT 10/21/2019 2:07 PM CDT Results for this DIFFERENTIAL procedure are i n the results section . LACTIC ACID, VENOUS STAT 10/21/2019 2:07 PM CDT Results for this procedure are i n the results section . URINALYSIS W/ REFLEX URINE STAT 10/21/2019 2:07 PM CDT Results for this CULTURE procedure are i n the results section . HEPATIC FUNCTION PANEL STAT 10/21/2019 2:07 PM CDT Results for this procedure are i n the results section . BASIC METABOLIC PANEL (7) STAT 10/21/2019 2:07 PM CDT Results for this procedure are i n the results section . LIPASE STAT 10/21/2019 2:07 PM CDT Resu lts for this procedure are i n the results section . CBC W/PLT COUNT & AUTO STAT 10/21/2019 2:07 PM CDT Results for this DIFFERENTIAL procedure are i n the results section . RAPID DRUG SCREEN, URINE Add-On 10/21/2019 2:03 PM CDT Results for this procedure are i n the results section . after 03/25/2019 Results EKG-SCANNED (03/23/2020 3:01 PM CDT)Only the most recent of3 resultswithin the time period is included. Narrative Performed At This result has an attachment that is no t available. RHYTHM STRIP - SCAN (03/23/2020 3:01 PM CDT)Only the most recent of9 results within the time period is included. Narrative Performed At This result has an attachment that is no t available. Potassium (03/19/2020 8:58 AM CDT)Only the most recent of6 resultswithin the time period is included. Potassium 5.7 (H) 3.5 - 5.1 meq/L [facility] Specimen Blood Narrative Performed At [employer] Driller Helper ID - IDALIA Dodd [facility] Performing Organization Address City/State/Zipcode Phone Number [facility] [address] [place] [address] CENTER SARS-CoV2/RT-PCR (Asymptomatic ONLY) (03/19/2020 5:45 AM CDT)Only the most recent of8 resultswithin the time period is included. SARS-COV2/RT-PCR Negative Not Detected, Negative, [facility] See external report for MEDICAL CENTER linked test SARS-COV-2 PERFORMING LAB [facility] WOOD [facility] Specimen Other Narrative Performed At Negative result for this test determines that [facility] SARS-CoV-2 RNA was not present in the specimen above the Limit of Detection (LOD).However, Negative results do not preclude SARS-CoV-2 infection and should not be used as the sole basis for treatment or patient management decisions. Negative results must be combined with clinical observations, patient history, and epidemiological information. A false negative result may occur if a specimen is improperly collected, transported or handled.A false negative result should be considered if patient's recent exposures or clinical presentation indicate that COVID-19 (SARS-CoV-2) is likely and diagnostic tests for other causes of illness are negative.Re-testing should be considered in cases of suspected false negatives. The limit of detection for this assay is 800 copies/mL. This SARS CoV-2 test is a real-time RT-PCR test intended for the qualitative detection of nucleic acid from SARS-CoV-2 in a nasopharyngeal swab specimen collected from individuals suspected of COVID-19 by their healthcare provider. This test has not been Food and Drug Administration (FDA) cleared or approved.This is a modified version of an approved Emergency Use Authorization (EUA) and is in the process of review by the FDA. Once authorized by the FDA, the issued EUA will be effective until the declaration that circumstances exist justifying the authorization of the emergency use of in vitro diagnostic tests for detection and/or diagnosis of COVID-19 is terminated under Section 564(b)(2) of the Act or the EUA is revoked under Section 564(g) of the Act. Fact Sheet for Healthcare Providers: https://www.Lollipuff.[employer]/sites/default/files/pro duct/documents/Fact_Sheet_HC_Providers_Lyra_SA RS-CoV-2.pdf Fact Sheet for Healthcare Patients: https://www.Lollipuff.[employer]/sites/default/files/pro duct/documents/Fact_Sheet_Patients_Lyra_SARS-C oV-2.pdf Performing Laboratory: [address] [address] Performing Organization Address City/State/Zipcode Phone Number [address] [address] CENTER CBC with platelet count + automated diff (03/19/2020 5:33 AM CDT)Only the most recent of52 resultswithin the time period is included. WBC 5.7 3.5 - 10.5 K/L [facility] RBC 3.52 (L) 4.63 - 6.08 M/L [facility] Hemoglobin 10.5 (L) 13.7 - 17.5 GM/DL [facility] Hematocrit 34.0 (L) 40.1 - 51.0 % [facility] MCV 96.6 (H) 79.0 - 92.[address] [facility] MCH 29.8 25.7 - 32.[address] [facility] MCHC 30.9 (L) 32.3 - 36.5 GM/DL [facility] RDW 13.9 11.6 - 14.4 % [facility] Platelets 159 150 - 450 K/CU MM [facility] MPV 10.4 9.4 - 12.[address] [facility] nRBC 0 0 - 0 /[address] [facility] % Neutros 52 % [facility] % Lymphs 33 % [facility] % Monos 8 % [facility] % Eos 3 % [facility] % Baso 1 % [facility] # Neutros 2.95 1.78 - 5.38 K/L [facility] # Lymphs 1.86 1.32 - 3.57 K/L [facility] # Monos 0.46 0.30 - 0.82 K/L [facility] # Eos 0.17 0.04 - 0.54 K/L [facility] # Baso 0.06 0.01 - 0.08 K/L [facility] Immature Granulocytes-Relative 3 (H) 0 - 1 % C HI [facility] Specimen Blood Performing Organization Address City/[facility]/Zipcode Phone Number [facility] [address] [place] [address] CENTER Phosphorus (03/19/2020 5:33 AM CDT)Only the most recent of18 resultswithin the time period is included. Phosphorus 3.6 2.3 - 4.7 mg/dL [facility] Specimen Blood Narrative Performed At [employer] [place] - [facility] Performing Organization Address City/[facility]/Zipcode Phone Number [facility] [address] [place] [address] CENTER Magnesium (03/19/2020 5:33 AM CDT)Only the most recent of26 resultswithin the time period is included. Magnesium 1.7 1.6 - 2.6 mg/dL [facility] Specimen Blood Narrative Performed At [employer] ID - [facility] Performing Organization Address City/[facility]/Zipcode Phone Number [facility] [address] [place] [address] CENTER Comprehensive metabolic panel (03/19/2020 5:33 AM CDT)Only the most recent of21 resultswithin the time period is included. Protein, Total 7.1 6.0 - 8.3 gm/dL [facility] Albumin 4.1 3.5 - 5.0 g/dL [facility] Alkaline Phosphatase 120 40 - 150 U/L [facility] Total Bilirubin 0.2 0.2 - 1.2 mg/dL [facility] Sodium 138 136 - 145 meq/L [facility] Potassium 6.1 (HH) 3.5 - 5.1 meq/L [facility] Chloride 108 (H) 98 - 107 meq/L [facility] CO2 24 22 - 29 meq/L [facility] BUN 10 7 - 21 mg/dL [facility] Creatinine 0.64 0.57 - 1.25 mg/dL [facility] Glucose 91 70 - 105 mg/dL [facility] Calcium 9.3 8.4 - 10.2 mg/dL [facility] AST 24 5 - 34 U/L [facility] ALT 59 (H) 6 - 55 U/L [facility] EGFR 144Comment: ESTIMATED mL/min/1.73 sq m [facility] GFR IS NOT ACCURATE [facility] CREATININE CLEARANCE IN PREDICTING GLOMERULAR FILTRATION RATE. ESTIMATED GFR IS NOT APPLICABLE FOR DIALYSIS PATIENTS. Specimen Blood Narrative Performed At [employer] [place] - [facility] Performing Organization Address City/[facility]/Zipcode Phone Number [address] [address] CENTER Triglycerides (03/10/2020 4:13 AM CDT) Triglycerides 74 mg/dL [facility] Specimen Blood Narrative Performed At [facility]IG[facility] RANGE [facility] Low Risk<150 Borderline Risk 150-199 High Utzl538-280 Very High Risk >=500 [employer] Helper ID - IDALIA L Performing Organization Address City/State/Zipcode Phone Number [facility] [address] [place] [address] CENTER Hepatic function panel (03/10/2020 4:13 AM CDT)Only the most recent of18 resultswithin the time period is included. Protein, Total 6.3 6.0 - 8.3 gm/dL [facility] Albumin 3.7 3.5 - 5.0 g/dL [facility] Total Bilirubin 0.2 0.2 - 1.2 mg/dL [facility] Bilirubin, Direct 0.1 0.1 - 0.5 mg/dL [facility] Alkaline Phosphatase 140 40 - 150 U/L [facility] AST 62 (H) 5 - 34 U/L [facility] ALT 127 (H) 6 - 55 U/L [facility] Specimen Blood Narrative Performed At [employer] Helper ID - IDALIA Dodd [facility] Performing Organization Address City/State/Zipcode Phone Number [facility] [address] [place] [address] CENTER Basic Metabolic Panel (03/10/2020 4:13 AM CDT)Only the most recent of66 results within the time period is included. Sodium 140 136 - 145 meq/L [facility] Potassium 3.8 3.5 - 5.1 meq/L [facility] Chloride 106 98 - 107 meq/L [facility] CO2 25 22 - 29 meq/L [facility] BUN 3 (L) 7 - 21 mg/dL [facility] Creatinine 0.64 0.57 - 1.25 mg/dL [facility] Glucose 137 (H) 70 - 105 mg/dL [facility] Calcium 8.5 8.4 - 10.2 mg/dL [facility] EGFR 144Comment: ESTIMATED GFR IS mL/min/1.73 sq m [facility] NOT ACCURATE CRE[facility]ININE [facility] [place] CLEARANCE IN PREDICTING GLOMERULAR FILTRATION RATE. ESTIMATED GFR IS NOT APPLICABLE FOR DIALYSIS PATIENTS. Specimen Blood Narrative Performed At [employer] Hel[employer] ID - MATI Calderon [facility] Performing Organization Address City/State/Zipcode Phone Number [facility] [address] [place] [id number] CENTER XR chest 1 view portable / bedside (03/09/2020 3:17 PM CDT)Only the most recent of2 resultswithin the time period is included. Specimen Narrative Performed At FINAL REPORT [employer] INDICATION: post picc line insertion COMPARISON: None TECHNIQUE: Single frontal view of the ch est. FINDINGS: Lungs and pleura: Clear lungs. No effusi on. Heart and mediastinum: Normal heart size . Unremarkable mediastinal contours. Osseous structures: No acute abnormality . Other: PICC tip overlies the SVC. IMPRESSION: No acute intrathoracic abnormality. Signed: Purvi Mast MD Report Verified Date/Time:03/09/2020 15:36:17 Reading Location: [employer] Reading Room Procedure Note Interface, External Ris In - 03/09/2020 3:38 PM CDT FINAL REPORT INDICATION: post picc line insertion COMPARISON: None TECHNIQUE: Single frontal view of the ch est. FINDINGS: Lungs and pleura: Clear lungs. No effusi on. Heart and mediastinum: Normal heart size . Unremarkable mediastinal contours. Osseous structures: No acute abnormality . Other: PICC tip overlies the SVC. IMPRESSION: No acute intrathoracic abnormality. Signed: Purvi Mast MD Report Verified Date/Time: 03/09/2020 1 5:36:17 Reading Location: [employer] Reading Room Performing Organization Address City/State/Zipcode Phone Number [employer] [place] hepatobiliary (HIDA) scan (03/08/2020 12:26 PM CDT) Specimen Narrative Performed At FINAL REPORT [employer] PROCEDURE: HEPATOBILIARY SCAN CPT CODE: 98136 INDICATION: Perforation, elisabet e duct PROTOCOL: 5.4 mCi of Tc-99m mebrofenin was injected intravenously. Images of the upper abdom en were obtained for approximately 75 minutes after tracer in jection. FINDINGS:Initial tra cer uptake into the liver is physiological. Subsequent tracer clearan ce from the liver proceeds normally. There is good visualization of the extrahepatic biliary duct and the tracer appears appropriatel y in the small bowel. There is no tracer activity outside the approp riate anatomic structures. IMPRESSION: 1.Normal hepatobiliary scan. 2.No evidence of biliary leak. Signed: David Caal MD Report Verified Date/Time:03/08/2020 13:48:03 Reading Location: [address] Reading Room Procedure Note Interface, External Ris In - 03/08/2020 1:50 PM CDT FINAL REPORT PROCEDURE: HEPATOBILIARY SCAN CPT CODE: [id number] INDICATION: Perforation, bile duct PROTOCOL: 5.4 mCi of Tc-99m mebrof enin was injected intravenously. Images of the upper abdom en were obtained for approximately 75 minutes after tracer in jection. FINDINGS: Initial tracer uptake into the liver is physiological. Subsequent tracer clearan ce from the liver proceeds normally. There is good visualization of the extrahepatic biliary duct and the tracer appears appropriatel y in the small bowel. There is no tracer activity outside the approp riate anatomic structures. IMPRESSION: 1.Normal hepatobiliary scan. 2.No evidence of biliary leak. Signed: David Caal MD Report Verified Date/Time: 03/08/2020 1 3:48:03 Reading Location: [address] Reading Room Performing Organization Address City/State/Zipcode Phone Number [facility] Lipase (03/07/2020 3:39 AM CDT)Only the most recent of8 resultswithin the time period is included. Lipase >1200 (H) 8 - 78 U/L [facility] Specimen Blood Narrative Performed At [employer] Helper ID - ANA Puri [facility] CENTER Performing Organization Address City/[facility]/Zipcode Phone Number [facility] [address] [place] [address] abdomen/pelvis with IV contrast (03/06/2020 8:18 PM CDT)Only the most recent of5 resultswithin the time period is included. Specimen Narrative Performed At FINAL REPORT [employer] [facility] CT, ABDOMEN \\T\\ PELVIS, WITH IV CONTRAST INDICATION: Abdominal pain, acute (Ped 0 -18y) COMPARISON: None TECHNIQUE: Post contrast abdomen and pelvis CT. Coronal and sagittal reformatted images obtained. DOSE REDUCTION: Dose modulation, iterati ve reconstruction, and/or weight-based adjustment of the mA/kV was utilized to reduce the radiation dose to as low as reasonably a chievable. FINDINGS: Lower thorax: Bilateral lower lobe depen dent atelectasis. The heart is normal in size. No pericardial effusi on. Small hiatal hernia. Liver: Hepatomegaly. No parenchymal abno rmality. Gallbladder and biliary tree: Postsurgic al changes of an interval cholecystectomy. There is small volume g as and fluid in the cholecystectomy bed, likely postsurgical however indeterminate on this examination. No ductal dilatation. Pancreas: Mild inflammatory changes surr ounding the pancreatic parenchyma suggestive of acute pancreati tis. The pancreas enhances homogeneously. No drainable fluid collec tions. Spleen: Splenomegaly with the spleen fredi suring 14 cm in the greatest craniocaudal dimension. Adrenal Glands: No acute findings. Kidneys and ureters: No hydronephrosis o r nephrolithiasis. Bladder and reproductive organs: Unremar kable. Stomach and Duodenum: No significant fin dings. Small and large intestine: Normal calibe rs. Again seen is mild wall thickening of the distal large bowel fav ored to be related to underdistention no surrounding inflammat ory changes. Appendix: Not identified however no seco ndary findings of acute appendicitis in the right lower quadrant . Major vascular structures: Normal aortic caliber. 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 Multiple prominent venou s collaterals in the left upper quadrant. Peritoneum and retroperitoneum: No free air, fluid or adenopathy. Skeleton: No acute bony abnormality. Additional findings: Soft tissue strandi ng over the anterior abdominal wall may be postsurgical.. IMPRESSION: Postsurgical changes of a recent cholecy stectomy. There is small volume pneumoperitoneum with fluid in th e gallbladder fossa. Likely postsurgical however there is concern fo r a bile leak recommend further evaluation with nuclear medicine scan. Persistent findings of acute pancreatiti s. No evidence of pancreatic necrosis or drainable fluid collection. Hepatosplenomegaly. 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 Signed: Dayana Garces MD Report Verified Date/Time:03/07/2020 02:14:11 Procedure Note Interface, External Ris In - 03/07/2020 2:17 AM CDT FINAL REPORT CT, ABDOMEN \\T\\ PELVIS, WITH IV CONTRAST INDICATION: Abdominal pain, acute (Ped 0 -18y) COMPARISON: None TECHNIQUE: Post contrast abdomen and pelvis CT. Co sharda and sagittal reformatted images obtained. DOSE REDUCTION: Dose modulation, iterati ve reconstruction, and/or weight-based adjustment of the mA/kV was utilized to reduce the radiation dose to as low as reasonably a chievable. FINDINGS: Lower thorax: Bilateral lower lobe depen dent atelectasis. The heart is normal in size. No pericardial effusi on. Small hiatal hernia. Liver: Hepatomegaly. No parenchymal abno rmality. Gallbladder and biliary tree: Postsurgic al changes of an interval cholecystectomy. There is small volume g as and fluid in the cholecystectomy bed, likely postsurgical however indeterminate on this examination. No ductal dilatation. Pancreas: Mild inflammatory changes surr ounding the pancreatic parenchyma suggestive of acute pancreati tis. The pancreas enhances homogeneously. No drainable fluid collec tions. Spleen: Splenomegaly with the spleen fredi suring 14 cm in the greatest craniocaudal dimension. Adrenal Glands: No acute findings. Kidneys and ureters: No hydronephrosis o r nephrolithiasis. Bladder and reproductive organs: Unremar kable. Stomach and Duodenum: No significant fin dings. Small and large intestine: Normal calibe rs. Again seen is mild wall thickening of the distal large bowel fav ored to be related to underdistention no surrounding inflammat ory changes. Appendix: Not identified however no seco ndary findings of acute appendicitis in the right lower quadrant . Major vascular structures: Normal aortic caliber. 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 Multiple prominent venou s collaterals in the left upper quadrant. Peritoneum and retroperitoneum: No free air, fluid or adenopathy. Skeleton: No acute bony abnormality. Additional findings: Soft tissue strandi ng over the anterior abdominal wall may be postsurgical.. IMPRESSION: Postsurgical changes of a recent cholecy stectomy. There is small volume pneumoperitoneum with fluid in th e gallbladder fossa. Likely postsurgical however there is concern fo r a bile leak recommend further evaluation with nuclear medicine scan. Persistent findings of acute pancreatiti s. No evidence of pancreatic necrosis or drainable fluid collection. Hepatosplenomegaly. 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 Signed: Dayana Garces MD Report Verified Date/Time: 03/07/2020 0 2:14:11 Performing Organization Address City/State/Zipcode Phone Number [facility] Tissue Exam (03/05/2020 8:32 AM CDT)Only the most recent of3 resultswithin the time period is included. Case Report Surgical Pathology Report Case: [id number] [facility] Authorizing Provider:Rosa Navarro MD Collected: 03/05/2020 08:32 AM [facility] Ordering Location: [facility] PERIOPERATIVE Received:03/05/2020 10:12 AM SERVICES Pathologist: Inocencio Carballo MD Specimen:Gallbladder DIAGNOSIS A. GALLBLADDER, CHOLECYSTECTOMY: [facility] - CHRONIC CHOLECYSTITIS [facility] Signing Pathologist Direct Phone Line: CPT Code(s) [address]703 [facility] CLINICAL HISTORY Preop diagnosis: Other [facility] chronic pancreatitis [facility] SPECIMEN SOURCE Gallbladder [facility] GROSS DESCRIPTION Received in formalin [facility] labeled with the patient's [facility] name, accession number and "gallbladder" is an 11.0 x 2.0 x 1.0 cm intact gallbladder with a 0.2 cm in length x 0.3 cm in diameter attached cystic duct. The serosa is yellow-pink, smooth and hyperemic. The specimen is opened to reveal approximately 3 ml of yellow bile. Calculi are not identified. The mucosa is prakash-pink and trabeculated. The wall measures 0.2 cm thick. Rn Unit Manager sections are submitted in A1-A2, with the inked cystic duct margin in A1. PA/pl MICROSCOPIC DESCRIPTION Performed. [facility] Gross assessment was [facility] C [facility] performed at [place], Department of [facility] Pathology, [address] [place] [id number], Professional component was [facility] performed at [place], Department of [facility] Pathology, [address] [place] [id number], Specimen Tissue Performing Organization Address City/[facility] Phone Number [address] [address] CENTER TRANSFUSION SERVICE REPORT - SCAN (03/04/2020 6:00 PM CDT)Only the most recent of4 resultswithin the time period is included. Narrative Performed At This result has an attachment that is no t available. Type and screen, automated (03/03/2020 2:49 PM CDT)Only the most recent of4 resultswithin the time period is included. ABO/RH AUTOMATED (BEAKER) B POSITIVE [facility] Ab Scrn NEGATIVE [facility] Specimen Blood Performing Organization Address City/[facility] Phone Number [address] [address] Hemoglobin and hematocrit (03/02/2020 2:33 PM CDT)Only the most recent of2 resultswithin the time period is included. Hemoglobin 10.8 (L) 13.7 - 17.5 GM/DL [facility] Hematocrit 32.9 (L) 40.1 - 51.0 % [facility] Specimen Blood Narrative Performed At [facility] Helper ID - [id number] [facility] Performing Organization Address City/[facility]/Zipcode Phone Number [facility] [address] [place], [place] [id number] CENTER Prothrombin time/INR (03/01/2020 5:00 AM CDT)Only the most recent of31 results within the time period is included. Protime 19.2 (H) 11.9 - 14.2 seconds [facility] INR 1.66 <=5.90 [facility] Specimen Blood Narrative Performed At Effective 12/11/2018: PT Reference Range [facility] Change New: 11.9-14.2Previous: 11.7-14.7 RECOMMENDED COUMADIN/WARFARIN INR THERAPY RANGES STANDARD DOSE: 2.0-3.0Includes: PROPHYLAXIS for venous thrombosis, systemic embolization; TREATMENT for venous thrombosis and/or pulmonary embolus. HIGH RISK: Target INR is 2.5-3.5 for patients wiht mechanical heart valves. Performing Organization Address City/State/Zipcode Phone Number [facility] [address] [place] [address] [place] Urinalysis w/Microscopic (02/28/2020 5:33 PM CDT) Color, UA Light Yellow [facility] Clarity, UA Clear [facility] Specific [place], UA 1.011 1.001 - 1.035 [facility] pH, UA 6.5 5.0 - 8.0 [facility] Protein, UA Negative Negative [facility] Glucose, UA Negative Negative [facility] Ketones, UA Negative Negative [facility] Bilirubin, UA Negative Negative [facility] Blood, UA Negative Negative [facility] Nitrite, UA Negative Negative [facility] Leukocytes, UA Negative Negative [facility] Urobilinogen, UA 0.2 0.2 - 1.0 mg/dL [facility] RBC, UA 0 /HPF [facility] WBC, UA <1 /HPF [facility] Mucus Many [facility] [facility] Squam Epithel, UA <1 /HPF [facility] Hyaline Casts, UA 3 /LPF [facility] Specimen Source [facility] Specimen Urine Narrative Performed At Core Driller Helper ID - [auto] [facility] Core Driller Helper ID - tech Performing Organization Address City/State/Zipcode Phone Number [facility] [address] [place] [address] CENTER ECG 12 lead (02/28/2020 3:06 PM CDT)Only the most recent of12 resultswithin the time period is included. Specimen Narrative Performed At Ventricular Rate 82 BPM GE MUSE Atrial Rate 82 BPM P-R Interval 140 ms QRS Duration 94 ms Q-T Interval 372 ms QTC Calculation(Bazett) 434 ms P [place] 44 degrees R [place] 51 degrees T [place] 54 degrees Normal sinus rhythm Cannot rule out Anterior infarct , age u ndetermined Abnormal ECG 21 FEB 2020 Old anterior infarct now suspected Confirmed by MD TONIA, BEL ([id number]) on 02/28/2020 6:29:15 PM Procedure Note Interface, External Ris In - 02/28/2020 6:29 PM CDT Ventricular Rate 82 BPM Atrial Rate 82 BPM P-R Interval 140 ms QRS Duration 94 ms Q-T Interval 372 ms QTC Calculation(Bazett) 434 ms P [place] 44 degrees R [place] 51 degrees T [place] 54 degrees Normal sinus rhythm Cannot rule out Anterior infarct , age u ndetermined Abnormal ECG 21 FEB 2020 Old anterior infarct now suspected Confirmed by MD TONIA, BEL ([id number]) on 02/28/2020 6:29:15 PM Performing Organization Address City/State/Zipcode Phone Number GE MUSE CORTISOL,60 MIN (02/21/2020 9:26 PM CDT)Only the most recent of3 resultswithin the time period is included. Cortisol, Baseline 8.8 mcg/dL [facility] Cortisol 30 minute 18.8 mcg/dL [facility] Cortisol, 60 Minute 22.6 ug/dL [facility] Specimen Blood Narrative Performed At ACTH STIMULATION TEST INTERPRETATION [facility] GUIDELINES (Synonyms: Cortrosyn Test, Cosyntropin or Corticotropin Stimulation Test) Adenocorticotropic hormone (ACTH)is a tropic hormone, made in the pituitary gland, which travels trhough the bloodstream and stimulates the cortex of the adrenal glands to release cortisol. Cortisol is a primary hormone, which aids the body's metabolism of fats, carbohydrates, and protein as well as sodium and potassium regulation. ACTH Stimulation Test: Exogenous administration of biologically active ACTH stimulates the secretion of cortisol from the adrenal gland. This test is used to evaluate adrenal function by measuring cortisol levels at baseline and at 30 and 60 minutes after the administration of 250 micrograms of cosyntropin (Cortrosyn). Patients who have received exogenous corticosteroids immediately prior to performing the ACTH Stimulation Test will often have elevated baseline cortisol levels, which may lead to erroneous interpretation of test results. The notable exception is with dexamethasone. Normal Response: An increase in cortisol after stimulation by ACTH is normal. Post-stimulation cortisol concentration should be greater than 20 mcg/dL or the rate of rise from baseline cortisol should be greater than or equal to 9 mcg/dL. Patients with sepsis or septic shock: According to a study by Shellie et al (CORBIN 2000,283(8):1038-45), the ACTH Stimulation Test provides important prognostic information. This study defined 3 groups of patients with sepsis or septic shock: 1. Good Survival: Low basal cortisol (<or=34 mcg/dL) and high ACTH response (>9mcg/dL) 2.Intermediate Survival: Low basal cortisol (<34 mcg/dL) and low response to ACTH (<or=9 mcg/dL) OR High basal cortisol (>34 mcg/dL) or high ACTH response (>9 mcg/dL) 3.Poor Survival: High basal cortisol (>34 mcg/dL) and low ACTH response (<or=9 mcg/dL). Treatment of patients with relative adrenal dysfunction may be indicated based on test results and the clinical condition of the patient. Additional information, including treatment recommendations, is available in critically ill patients, approved by the Pharmacy, Nutrition, and Therapeutics Committee on 06/24/2004 and available through the Pharmacy Policy and Procedure Section on The Source. Core Driller Helper ID - ROSIANG Performing Organization Address City/State/Zipcode Phone Number [facility] [address] [place] [address] CENTER CORTISOL,30 MIN (02/21/2020 8:58 PM CDT)Only the most recent of2 resultswithin the time period is included. Cortisol, Baseline 8.8 mcg/dL [facility] Cortisol, 30 Minute 18.8 ug/dL [facility] Specimen Blood Narrative Performed At ACTH STIMULATION TEST INTERPRETATION [facility] (Synonyms: Cortrosyn Test, Cosyntropin or Corticotropin Stimulation Test) Adenocorticotropic hormone (ACTH)is a tropic hormone, made in the pituitary gland, which travels trhough the bloodstream and stimulates the cortex of the adrenal glands to release cortisol. Cortisol is a primary hormone, which aids the body's metabolism of fats, carbohydrates, and protein as well as sodium and potassium regulation. ACTH Stimulation Test: Exogenous administration of biologically active ACTH stimulates the secretion of cortisol from the adrenal gland. This test is used to evaluate adrenal function by measuring cortisol levels at baseline and at 30 and 60 minutes after the administration of 250 micrograms of cosyntropin (Cortrosyn). Patients who have received exogenous corticosteroids immediately prior to performing the ACTH Stimulation Test will often have elevated baseline cortisol levels, which may lead to erroneous interpretation of test results. The notable exception is with dexamethasone. Normal Response: An increase in cortisol after stimulation by ACTH is normal. Post-stimulation cortisol concentration should be greater than 20 mcg/dL or the rate of rise from baseline cortisol should be greater than or equal to 9 mcg/dL. Patients with sepsis or septic shock: According to a study by Shellie et al (CORBIN 2000,283(8):0573-45), the ACTH Stimulation Test provides important prognostic information. This study defined 3 groups of patients with sepsis or septic shock: 1. Good Survival: Low basal cortisol (<or=34 mcg/dL) and high ACTH response (>9mcg/dL) 2.Intermediate Survival: Low basal cortisol (<34 mcg/dL) and low response to ACTH (<or=9 mcg/dL) OR High basal cortisol (>34 mcg/dL) or high ACTH response (>9 mcg/dL) 3.Poor Survival: High basal cortisol (>34 mcg/dL) and low ACTH response (<or=9 mcg/dL). Treatment of patients with relative adrenal dysfunction may be indicated based on test results and the clinical condition of the patient. Additional information, including treatment recommendations, is available in critically ill patients, approved by the Pharmacy, Nutrition, and Therapeutics Committee on 06/24/2004 and available through the Pharmacy Policy and Procedure Section on The Source. Core Driller Helper ID - ROSIANG Performing Organization Address City/State/Zipcode Phone Number [place] [phone] [place] [address] CENTER CORTISOL,BASELINE (02/21/2020 8:12 PM CDT)Only the most recent of2 results within the time period is included. Cortisol, Baseline 8.8 ug/dL [facility] Specimen Blood Narrative Performed At ACTH STIMULATION TEST INTERPRETATION [facility] (Synonyms: Cortrosyn Test, Cosyntropin or Corticotropin Stimulation Test) Adenocorticotropic hormone (ACTH)is a tropic hormone, made in the pituitary gland, which travels trhough the bloodstream and stimulates the cortex of the adrenal glands to release cortisol. Cortisol is a primary hormone, which aids the body's metabolism of fats, carbohydrates, and protein as well as sodium and potassium regulation. ACTH Stimulation Test: Exogenous administration of biologically active ACTH stimulates the secretion of cortisol from the adrenal gland. This test is used to evaluate adrenal function by measuring cortisol levels at baseline and at 30 and 60 minutes after the administration of 250 micrograms of cosyntropin (Cortrosyn). Patients who have received exogenous corticosteroids immediately prior to performing the ACTH Stimulation Test will often have elevated baseline cortisol levels, which may lead to erroneous interpretation of test results. The notable exception is with dexamethasone. Normal Response: An increase in cortisol after stimulation by ACTH is normal. Post-stimulation cortisol concentration should be greater than 20 mcg/dL or the rate of rise from baseline cortisol should be greater than or equal to 9 mcg/dL. Patients with sepsis or septic shock: According to a study by Shellie et al (CORBIN 2000,283(8):7174-30), the ACTH Stimulation Test provides important prognostic information. This study defined 3 groups of patients with sepsis or septic shock: 1. Good Survival: Low basal cortisol (<or=34 mcg/dL) and high ACTH response (>9mcg/dL) 2.Intermediate Survival: Low basal cortisol (<34 mcg/dL) and low response to ACTH (<or=9 mcg/dL) OR High basal cortisol (>34 mcg/dL) or high ACTH response (>9 mcg/dL) 3.Poor Survival: High basal cortisol (>34 mcg/dL) and low ACTH response (<or=9 mcg/dL). Treatment of patients with relative adrenal dysfunction may be indicated based on test results and the clinical condition of the patient. Additional information, including treatment recommendations, is available in critically ill patients, approved by the Pharmacy, Nutrition, and Therapeutics Committee on 06/24/2004 and available through the Pharmacy Policy and Procedure Section on The Source. Core Driller Helper ID - [email or web address] Performing Organization Address City/[facility]/Zipcode Phone Number [address] [address] [place] Troponin I (02/21/2020 4:51 AM CDT)Only the most recent of10 resultswithin the time period is included. Troponin I <0.01 0.00 - 0.03 ng/mL [facility] Specimen Blood Narrative Performed At Troponin I (TnI) levels must be interpreted [facility] in the context of the presenting symptoms and the clinical findings. Elevated TnI levels indicate myocardial damage, but are not specific for ischemic heart disease. Elevated TnI levels are seen in patients with other cardiac conditions (including myocarditis and congestive heart failure), and slight TnI elevations occur in patients with other conditions, including sepsis, renal failure, acidosis, acute neurological disease, and persistent tachyarrhythmia. Core Driller Helper ID - ANA Puri Performing Organization Address City/State/Zipcode Phone Number [address] [address] [place] POC-Glucose meter (02/20/2020 11:24 PM CDT)Only the most recent of9 results within the time period is included. POC-Glucose Meter 166 (H)Comment: : TESTED 70 - 110 mg/dL [facility] [address], [address]: Core Driller Helper/Sanitary Chemist ID = [id number] for Geri Begum (contract) Specimen Blood Performing Organization Address City/[facility]/Zipcode Phone Number [address] [address] CENTER REPORT OF PROCEDURE - ENDOSCOPY URL (02/20/2020 1:44 PM CDT) Narrative Performed At This result has an attachment that is no t available. IGG SUBCLASS-4 ONLY (02/17/2020 3:36 AM CDT) Igg 4 41.0 4 - 86 mg/dL [facility] Specimen Blood Narrative Performed At Performing Lab [facility] EZ [facility] [place] [address] [place] [address] Katrin Skelton MD, PhD, DAJUAN Performing Organization Address City/[facility] Phone Number [facility] [place] [phone] [facility] [address] [facility] C-Reactive Protein (02/17/2020 3:36 AM CDT) CRP 3.31 (H) 0.00 - 0.50 mg/dL [facility] Specimen Blood Narrative Performed At Core Driller Helper ID - JEFFRY Aguilera [facility] Performing Organization Address City/[facility]/Zipcode Phone Number [address] [address] CENTER Anti-Nuclear Antibody (ESMER) (02/17/2020 3:36 AM CDT) ESMER Negative Negative [facility] Specimen Blood Narrative Performed At Test performed by IFA method. [facility] Test performed by IFA method. Performing Organization Address [facility]/Zipcode Phone Number [address] [address] CENTER Immunoglobulin G (IgG) (02/17/2020 3:36 AM CDT) IgG 889 540-1,822 mg/dL [facility] Specimen Blood Narrative Performed At Core Driller Helper AQUILES Sanchez JEFFRY Aguilera [facility] Performing Organization Address City/State/Zipcode Phone Number [facility] [address] [place] [address] CENTER phosphatidylethanol (02/16/2020 5:23 PM CDT) Scan Result [facility] Specimen Blood Narrative Performed At This result has an attachment that is no t available. Performing Organization Address City/State/Zipcode Phone Number [facility] [address] [place], [place] Rapid drug screen, urine (02/16/2020 1:29 AM CDT)Only the most recent of3 resultswithin the time period is included. Barbiturate Screen Negative Negative [facility] Benzodiazepine Screen Negative Negative [facility] Cocaine (Metab.) Screen Negative Negative [facility] Methadone Screen Negative Negative [facility] Opiate Screen Positive (A) Negative [facility] Cannabinoid Screen Negative Negative [facility] Amph/Methamph Screen Negative Negative [facility] Phencyclidine Screen Negative Negative [facility] pH, UA 6.5 5.0 - 8.0 [facility] Specimen Urine Narrative Performed At [facility] CONC. Cocaine 300 ng/mL Ryucgvjlwfg60 ng /mL Qzheesglbljeul216 ng/mL Barbiturate 200 ng/m L Pddbboojfaugk93 ng/m L Vhuziv183 ng/mL Methadone 300 ng /mL Amphetamine/ 1000 ng/mL Methamphetamine This assay provides an unconfirmed qualitative test result for the clinical management of patients in emergency situations. Chain of custody not maintained. Some nuqs-vmd-atdgidn medications, as well as adulterants, may cause inaccurate results. Clinical correlation should be applied. A more comprehensive drug screen or confirmation of a detected drug may be performed upon request. Core Driller Helper ID - IDALIA L Core Driller Helper ID - [auto] Performing Organization Address [facility] Services[facility] Phone Number [address] [phone] CENTER PT/aPTT (02/15/2020 8:02 PM CDT)Only the most recent of4 resultswithin the time period is included. Protime 14.8 (H) 11.9 - 14.2 seconds [facility] INR 1.2 <=5.9 [facility] PTT 27.3 22.5 - 36.0 seconds [facility] Specimen Blood Narrative Performed At Effective 12/11/2018: PT Reference Range [facility] Change New: 11.9-14.2Previous: 11.7-14.7 RECOMMENDED COUMADIN/WARFARIN INR THERAPY RANGES STANDARD DOSE: 2.0-3.0Includes: PROPHYLAXIS for venous thrombosis, systemic embolization; TREATMENT for venous thrombosis and/or pulmonary embolus. HIGH RISK: Target INR is 2.5-3.5 for patients wiht mechanical heart valves. Performing Organization Address [facility] Services[facility] Phone Number [address] [phone] CENTER ECG/EKG Interpretation (02/15/2020 4:36 PM CDT) Narrative Performed At Sheldon Gonzales MD 02/15/2020 5:28 PM ECG/EKG Interpretation Date/Time: 02/15/2020 4:38 PM Performed by: Sheldon Gonzales MD Authorized by: Sheldon Gonzales MD The ECG was interpreted by ED physician. The ECG is in terpreted as sinus rhythm. Rate is tachycardic. Heart rate is [address] segments normal. T waves normal. CT abd/pelvis - pancreas evaluation (01/25/2020 12:40 AM CDT) Specimen Narrative Performed At FINAL REPORT [facility] ABDOMINAL AND PELVIS CT DATED 01/25/2020 CLINICAL INFORMATION:Epigastric pain TECHNIQUE:Axial images of the abdome n and pelvis were obtained from diaphragm to the pubic symphysis with an d without intravenous contrast. This exam was performed according to our departmental dose-optimization program, which include s automated exposure control, adjustment of the mA and/or kV according to patient size and/or use of interactive reconstruction technique. COMMENT: Liver and spleen are normal in size without focal abnormality.Gallbladder is distended . No gallstone or biliary dilatation is noted. Pancreas is normal in caliber. Inflammat ory changes are seen surrounding the body and tail of the duvall creas consistent with the acute pancreatitis. No pseudocyst, hemor rhagic pancreatitis, or pancreatic necrosis is seen. Pancreatic duct is normal in caliber. The splenic and portal, and hepatic vein s are patent. The distal superior mesenteric vein is small in melvi iber. Multiple collateral veins are seen in the omentum and adjace nt to the stomach. The adrenals Adrenals are unremarkable. Both kidneys are normal in size and func tioning. No hydronephrosis, hydroureter, urolithiasis is seen. The small and large bowel are unremarkab le. Appendix is not visualized. No mass, adenopathy or ascites is presen t. IMPRESSION:Acute pancreatitis. Signed: Carrington Garcia MD Report Verified Date/Time:01/25/2020 09:59:37 Reading Location: [address] Reading Room Procedure Note Interface, External Ris In - 01/25/2020 10:01 AM CDT FINAL REPORT ABDOMINAL AND PELVIS CT DATED 01/25/2020 CLINICAL INFORMATION: Epigastric pain TECHNIQUE: Axial images of the abdomen and pelvis were obtained from diaphragm to the pubic symphysis with an d without intravenous contrast. This exam was performed according to our departmental dose-optimization program, which include s automated exposure control, adjustment of the mA and/or kV according to patient size and/or use of interactive reconstruction technique. COMMENT: Liver and spleen are normal in size without focal abnormality. Gallbladder is distended. No gallstone or biliary dilatation is noted. Pancreas is normal in caliber. Inflammat ory changes are seen surrounding the body and tail of the duvall creas consistent with the acute pancreatitis. No pseudocyst, hemor rhagic pancreatitis, or pancreatic necrosis is seen. Pancreatic duct is normal in caliber. The splenic and portal, and hepatic vein s are patent. The distal superior mesenteric vein is small in melvi iber. Multiple collateral veins are seen in the omentum and adjace nt to the stomach. The adrenals Adrenals are unremarkable. Both kidneys are normal in size and func tioning. No hydronephrosis, hydroureter, urolithiasis is seen. The small and large bowel are unremarkab le. Appendix is not visualized. No mass, adenopathy or ascites is presen t. IMPRESSION: Acute pancreatitis. Signed: Carrington Garcia MD Report Verified Date/Time: 01/25/2020 0 9:59:37 Reading Location: [facility] [id number] [facility] Reading Room Performing Organization Address City/State/Zipcode Phone Number [facility] CBC (Hemogram only) (01/23/2020 7:53 PM CDT)Only the most recent of11 results within the time period is included. WBC 10.9 (H) 3.5 - 10.5 K/L [facility] RBC 5.50 4.63 - 6.08 M/L [facility] Hemoglobin 16.0 13.7 - 17.5 GM/DL [facility] Hematocrit 47.0 40.1 - 51.0 % [facility] MCV 85.5 79.0 - 92.2 fL [facility] MCH 29.1 25.7 - 32.2 pg [facility] MCHC 34.0 32.3 - 36.5 GM/DL [facility] RDW 13.4 11.6 - 14.4 % [facility] Platelets 204 150 - 450 K/CU MM [facility] MPV 9.3 (L) 9.4 - 12.4 fL [facility] nRBC 0 0 - 0 /100 WBC [facility] Specimen Blood Performing Organization Address [facility] Services[facility] Phone Number [address] [phone] CENTER Ethanol (01/23/2020 7:53 PM CDT)Only the most recent of2 resultswithin the time period is included. Ethanol Lvl <10 <=10 mg/dL [facility] Specimen Blood Narrative Performed At Core Driller Helper ID - BS [facility] Performing Organization Address [facility] Services[facility] Phone Number [address] [phone] CENTER Lactic acid, venous (01/23/2020 5:06 AM CDT)Only the most recent of12 results within the time period is included. Lactate, Venous 3.60 (H) 0.50 - 2.20 mmol/L [facility] Specimen Blood Narrative Performed At Core Driller Helper ID - LA [facility] Performing Organization Address [facility] Phone Number [address] [phone] CENTER Urinalysis with Microscopic If Indicated (12/18/2019 10:28 AM CDT)Only the most recent of3 resultswithin the time period is included. Color, UA Yellow [facility] Clarity, UA Clear [facility] Specific [place], UA 1.021 1.001 - 1.035 [facility] pH, UA 6.0 5.0 - 8.0 [facility] Protein, UA Negative Negative [facility] Glucose, UA Negative Negative [facility] Ketones, UA 60 mg/dL (A) Negative [facility] Bilirubin, UA Negative Negative [facility] Blood, UA Negative Negative [facility] Nitrite, UA Negative Negative [facility] Leukocytes, UA Negative Negative [facility] Urobilinogen, UA 0.2 0.2 - 1.0 mg/dL [facility] Specimen Source [facility] Specimen Urine Narrative Performed At Core Driller Helper ID - [auto] [facility] [place] Performing Organization Address City/[facility] Phone Number [facility] [address] [place] [address] [place] Drug screen, urine, comprehensive (12/18/2019 10:28 AM CDT) Specimen Urine Narrative Performed At This result has an attachment that is no t available. Blood gas, arterial (12/18/2019 6:43 AM CDT) pH, Arterial 7.46 (H) 7.35 - 7.45 [facility] pCO2, Arterial 33 (L) 35 - 45 mmHg [facility] pO2, Arterial 230 (H) 80 - 90 mmHg [facility] O2 Sat, Arterial 99.6 (H) 96.0 - 97.0 % [facility] HCO3, Arterial 23 21 - 29 mmol/L [facility] Base Excess, Arterial -0.5 -2.0 - 3.0 mmol/L [facility] Patient Temperature 37.0 C [facility] FIO2 21.0 % [facility] Specimen Blood, Arterial Performing Organization Address City/[facility]/Zipcode Phone Number [facility] [address] [place] [address] CENTER Blood Culture - Routine (Left Venipuncture) (12/17/2019 10:07 PM CDT)Only the most recent of2 resultswithin the time period is included. Result No growth in 5 days [facility] Specimen Blood Performing Organization Address City/[facility]/Zipcode Phone Number [facility] [address] [place], [place] [phone] CENTER Occult blood x 1, stool (12/17/2019 8:10 PM CDT) Occult blood Positive (A) Negative [facility] Specimen Stool Performing Organization Address City/[facility]/Zipcode Phone Number [facility] [address] [place], [place] [id number] [place] renal complete (11/25/2019 1:15 PM CDT) Specimen Narrative Performed At FINAL REPORT Easy Vino Technique: Grayscale and color doppler r enal ultrasound was performed on 11/25/2019 Clinical History: Abd pain. Comparison Study: None. Findings: The right kidney measures 11.0 x 5.2 x 4.3 cm and left kidney measures 11.5 x 6.4 x 5.5 cm. There is no evidence of hydronephrosis, nephrolithiasis or renal mass on either side. The echogenicity is norm al bilaterally. The bladder is normal in appearance. Inc identally noted is a hepatic steatosis. Impression: 1. Normal-appearing kidneys. 2. Hepatic steatosis. Signed: Nancy Concepcion MD Report Verified Date/Time:11/25/2019 14:35:00 Reading Location: [address] Radiolog y Reading Room Procedure Note Interface, External Ris In - 11/25/2019 2:37 PM CDT FINAL REPORT Technique: Grayscale and color doppler r enal ultrasound was performed on 11/25/2019 Clinical History: Abd pain. Comparison Study: None. Findings: The right kidney measures 11.0 x 5.2 x 4.3 cm and left kidney measures 11.5 x 6.4 x 5.5 cm. There is no evidence of hydronephrosis, nephrolithiasis or renal mass on either side. The echogenicity is norm al bilaterally. The bladder is normal in appearance. Inc identally noted is a hepatic steatosis. Impression: 1. Normal-appearing kidneys. 2. Hepatic steatosis. Signed: Nancy Concepcion MD Report Verified Date/Time: 11/25/2019 1 4:35:00 Reading Location: [address] Radiolog y Reading Room Performing Organization Address City/State/Zipcode Phone Number [facility] Cortisol (11/25/2019 11:09 AM CDT)Only the most recent of5 resultswithin the time period is included. Cortisol, Total 14.8 3.7 - 19.4 ug/dL [facility] Specimen Blood Narrative Performed At Core Driller Helper ID - BS [facility] Performing Organization Address [facility] [place] [address] CENTER Aldosterone (11/25/2019 11:09 AM CDT)Only the most recent of3 resultswithin the time period is included. Aldosterone <1 ng/dL [facility] Comment: Adult Reference Ranges for Aldosterone: Upright 8:00-10:00 am< or = 28 ng/d L Upright 4:00-6:00 pm < or = 21 ng/d L Supine8:00-10:00 am3-16 ng/dL This test was developed and its analytical perfo rmance characteristics have been determined by [facility]. It has not been cleared or approved by FDA. This assay has been validated pursuant to the CLIA regulations and is used for clinical purposes. Specimen Blood Narrative Performed At Performing Lab [facility] EZ [facility] Hospital[facility] tute [address] [place] [address] Katrin Skelton MD, PhD, DAJUAN Performing Organization Address City/[facility]/Zipcode Phone Number [facility] [place] [address] INCORPORATED [address] [facility] REPORT OF PROCEDURE - ENDOSCOPY URL (11/21/2019 3:07 PM CDT) Narrative Performed At This result has an attachment that is no t available. Vhue-7-Qjeuhxbgiquw I IgA (11/19/2019 4:29 AM CDT) Beta-2 Glycoprotein I <9 < OR = 20 BE [facility] Ab, IgA Comment: INCORPORATED The antiphospholipid antibody syndrome (APS) is a clinical-pathologic correlation that includes a clinical event (e.g. thrombosis, loss, thrombocytopenia) and persistent positive antiphospholipid antibodies (IgM or IgG TERRY >40 MPL/GPL,IgM or IgG anti-b2GPI antibodies or a lupus anticoagulant). International consensus guidelines for APS suggest waiting at least 12 weeks before retesting to confirm antibody persistence. The Systemic Lupus International [facility] immunological classification criteria for systemic lupus erythematosus (SLE) include testing for isotype IgA, which has yet to be incorporated into APS criteria. Low level antiphospholipid antibodies may sometimes be detected in the setting of infection, drug therapy or aging. Specimen Blood Narrative Performed At Performing Lab [facility] [address] [place] [address] Katrin Skelton MD, PhD, DAJUAN Performing Organization Address [facility] Phone Number [employer] [place] [address] INCORPORATED [address] [facility] Uvog-7-Pkhlqogycjkv I IgM (11/19/2019 4:29 AM CDT) Beta-2 Glycoprotein I Ab, IgM <9 < OR = 20 [facility] Specimen Blood Narrative Performed At Performing Lab [address] [address] [address] [place] [address] Katrin Skelton MD, PhD, DAJUAN Performing Organization Address [facility] Phone Number [facility] [place] [address] INCORPORATED [address] [facility] Psvh-5-Mzljpcwzzvex I IgG (11/19/2019 4:29 AM CDT) Beta-2 Glycoprotein I Ab, IgG <9 < OR = 20 [facility] Specimen Blood Narrative Performed At Performing Lab [place] [address] [address] [place] [address] Katrin Skelton MD, PhD, DAJUAN Performing Organization Address City/State/Zipcode Phone Number [facility], [place] [address] INCORPORATED [address] [facility] JAK2 MUTATION (V617F) QUANTITATIVE (11/19/2019 4:29 AM CDT) CLINICAL INDICATION NOT GIVEN [facility] ([facility] SPECIMEN SOURCE: NOT GIVEN [facility] Block/Specimen ID NOT GIVEN [facility] JAK2 V617F Mutation NOT DETECTED NOT DETECTED [facility] ([facility] GENE DNR [facility] AMINO ACID DNR [facility] MUTATIONS/POLYMORPHISMS DNR [facility] Mutation Analysis DNR [facility] Exons 10,11,13-16 DNR [facility] NUCLEOTIDE CHANGE DNR [facility] References: DNR [facility] INTERPRETATION ([facility]) SEE BELOW [facility] Comment: INCORPORATED A JAK2 V617F mutation is not detected. This data was reviewed and interpreted by Clif sheridan Ma, PhD. HCLD(ABB) ASSAY DETAILS SEE BELOW [facility] Comment: INCORPORATED This PCR-based advanced sequencing assay interro lew DNA from leukocytes for the presence of mutations in codon 617 of JAK2. The sensitivity of mutation detection is 5%. Alterations outside of the test ed areas of this gene will not be detected. Synonymous or known non-synonym ous polymorphic changes (SNPs) are not reported. JAK2 V617F mutation is associated with myeloproliferative neoplasms (MPNs), including p olycythemia vera (PV), essential thrombocythemia (ET) and primary myelo fibrosis (PMF), and a small subset of other myeloid neoplasms. Increasing al wade burden of JAK2 V617F in MPNs has been shown in a number of studies to be associated with increased symptoms including pruritis, splenomegaly, and l eukocytosis. Results of this assay should be correlated with morphology and o ther laboratory testing for final diagnosis and classification. If this test is negative, additional testing that may be useful for workup of MPNs, d epending on presenting hematologic features, includes BCR-ABL1 rearrang ement (test code 90219 or 92978W) or mutational analysis of CALR (ET/PMF, 98727), JAK2 exon 12 (PV, 24236), MPL (ET/PMF, 51854) or CSF3R (chronic ne utrophilic leukemia, 01751). Residual material from this sample may be used e xcept for BCR-ABL1 testing; call lab to add. DNA was aligned to GRCh37(hg19) for analysis and transcript ID [id number] was used as reference for JAK2 s equence. For additional information, please refer to http://education.Tengaged/faq/DHE382 (This link is being provided for informational/e ducational purposes only.) This test was developed and its analytical perfo rmance characteristics have been determined by [facility]. It has not been cleared or approved by FDA. This assay has been validated pursuant to the CLIA regulations and is used for clinical purposes. Specimen Blood Narrative Performed At Performing Lab [facility] EZ [employer] [facility] tute [address] [place] [address] Katrin kSelton MD, PhD, DAJUAN Performing Organization Address City/State/Zipcode Phone Number [facility] [place] [address] INCORPORATED [address] [facility] Prothrombin Gene Mutation (11/19/2019 4:29 AM CDT) PROTHROMBIN GENE ANALYSIS SEE BELOWComment: RESULT: [facility] [id number] variant not INCORPORATED detected Interpretation SEE BELOW [facility] Comment: INCORPORATED INTERPRETATION: This individual is negative (nor mal) for the F06760M variant in the Prothrombin/Factor II gene. Increased ris k of thrombophilia can be caused by a variety of genetic and non-genetic f actors not screened for by this assay. Laboratory testing supervised and results monito red by Elizabet Cai, Ph.D., [facility], [facility]. The F16123C mutation [QQ122314.1: g.15607V>A (c. *97G>A)] in the Prothrombin/Factor II gene is the second most co mmon inherited risk factor for thrombosis occurring in approximately 2% of Caucasians. Presence of the mutation is associated with an elevation of prot hrombin levels to about 30% above normal in heterozygotes and to 70% above n ormal in homozygotes. Prothrombin (D78375N) mutations are detected by amplification of their selected gene regions by polymerase chain reacti on (PCR) and fluorescent probe hybridization to the targeted region, foll owed by melting curve analysis with a real time PCR system. Although r are, false positive or false negative results may occur. All results should b e interpreted in context of clinical findings, relevant history, and other l aboratory data. Health care providers, please contact your local [employer] genetic counselor or call [phone] ([phone]) for assistance with interpretation of these results. This test was developed and its analytical perfo rmance characteristics have been determined by [facility]. It has not been cleared or approved by FDA. This assay has been validated pursuant to the CLIA regulations and is used for clinical purposes. Specimen Blood Narrative Performed At Performing Lab [facility] EZ [facility] [address] [place] [address] Katrin Skelton MD, PhD, DAJUAN Performing Organization Address [facility] Phone Number [employer], [place] [address] INCORPORATED [address] [facility] Beta-2 glycoprotein antibodies (11/19/2019 4:29 AM CDT) B2 Glcoprotein Ab Profile Refer to individual [facility] B2-Glycoprotein IgG, IgM INCORPO RATED and IgA results. Specimen Blood Performing Organization Address [facility] Phone Number [employer] [place] [address] INCORPORATED [address] [facility] Cardiolipin Antibodies, IgG and IgM (11/19/2019 4:29 AM CDT) Anticardiolipin IgG <1.6 <20.0 GPL [facility] Anticardiolipin IgM 4.1 <20.0 MPL [facility] Specimen Blood Narrative Performed At Anticardiolipin IgG Result Interpretatio n: [facility] <20.0 GPL Normal >/= 20.0 GPL Positive Anticardiolipin IgM Result Interpretatio n: <20.0 MPL Normal >/= 20.0 MPL Positive Performing Organization Address [facility]/State/Zipcode Phone Number [facility] [address] [place] [address] CENTER Factor 5 Leiden PCR (thrombotic risk) (11/19/2019 4:29 AM CDT) Factor V Leiden Mutation SEE BELOWComment: RESULT: [facility] FACTOR V LEIDEN (R506Q) INCORPOR ATED VARIANT NOT DETECTED Interpretation SEE BELOW [facility] Comment: INCORPORATED INTERPRETATION: This individual is negative (nor mal) for the Factor V Leiden (R506Q) variant in the Factor V gene. Increased risk of thrombophilia can be caused by a variety of genetic and non-genetic f actors not screened for by this assay. Laboratory testing supervised and results monito red by Katya Ma MD, PhD, [facility], [facility]. MUTATION ANALYSIS: The Factor V Leiden (R506Q) mutation [NM 494922. 2: c.1601G>A (p.R534Q)] in the Factor V gene is one of the most common caus es of inherited thrombophilia. This mutation causes resistance t o degradation of activated Factor V protein by activated protein C (APC). T he Factor V Leiden (R506Q) mutation is detected by amplification of the eleno ected region of Factor V gene by polymerase chain reaction (PCR) and fluoresce nt probe hybridization to the targeted region, followed by melting curve pepe sis with a real time PCR system. Although rare, false positive or false n egative results may occur. All results should be interpreted in context of clinical findings, relevant history, and other laboratory data. This test was developed and its analytical perfo rmance characteristics have been determined by [facility]. It has not been cleared or approved by FDA. This assay has been validated pursuant to the CLIA regulations and is used for clinical purposes. Health care providers, please contact your local [employer] genetic counselor or call [phone] ([phone]) for assistance with interpretation of these results. Specimen Blood Narrative Performed At Performing Lab [facility] EZ Context [facility] [address] [place] [address] Katrin Skelton MD, PhD, DAJUAN Performing Organization Address City/State/Zipcode Phone Number [facility], [place], [place] [address] INCORPORATED [address] [facility] Procalcitonin (11/17/2019 9:36 PM CDT)Only the most recent of2 resultswithin the time period is included. Procalcitonin <0.05 <0.05 ng/mL [facility] Specimen Blood Narrative Performed At SEPSIS RISK (ng/mL) [facility] Low:0.05-0.50 Intermediate: 0.51-2.00 High: >=2.01 Performing Organization Address City/State/Zipcode Phone Number [facility] [address] [place] [address] CENTER MR abdomen without & with IV contrast (11/17/2019 9:08 AM CDT)Only the most recent of2 resultswithin the time period is included. Specimen Narrative Performed At FINAL REPORT Easy Vino MRI of the abdomen dated November 17, 2019 COMPARISON: November 01, 2019 Comment: Multiplanar T1 and T2-weighted images of the abdomen, postcontrast axial and coronal T1-weight ed images of the abdomen were obtained. Liver and spleen are enlarged. Liver fredi sures 18.2 cm in the right midclavicular line. Spleen measures 14 x 4.82 x 10.4 cm. No abnormal enhancement or suspicious mass is seen i n the liver. 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 Multiple col lateral veins are seen in the splenic hilum and omentum. The splenic v ein adjacent to the splenic hilum is small caliber. No splenic throm bosis is seen. The portal vein is patent without thrombosis. Main portal vein measures approximately 1.6 cm in diameter. Gallbladder is contracted. No gallstone or biliary dilatation is seen. Pancreas and adrenals are unremarkable. Both kidneys are normal in size and func tioning. The visualized small and large bowel are unremarkable. No ascites is seen in the abdomen. IMPRESSION: 1. Hepatosplenomegaly. 2. 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 Signed: Carrington Garcia MD Report Verified Date/Time:11/17/2019 10:43:53 Reading Location: [facility] B1 C013Y CT Body R eading Room Procedure Note Interface, External Ris In - 11/17/2019 11:26 AM CDT FINAL REPORT MRI of the abdomen dated November 17, 2019 COMPARISON: November 01, 2019 Comment: Multiplanar T1 and T2-weighted images of the abdomen, postcontrast axial and coronal T1-weight ed images of the abdomen were obtained. Liver and spleen are enlarged. Liver fredi sures 18.2 cm in the right midclavicular line. Spleen measures 14 x 4.82 x 10.4 cm. No abnormal enhancement or suspicious mass is seen i n the liver. 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 Multiple col lateral veins are seen in the splenic hilum and omentum. The splenic v ein adjacent to the splenic hilum is small caliber. No splenic throm bosis is seen. The portal vein is patent without thrombosis. Main portal vein measures approximately 1.6 cm in diameter. Gallbladder is contracted. No gallstone or biliary dilatation is seen. Pancreas and adrenals are unremarkable. Both kidneys are normal in size and func tioning. The visualized small and large bowel are unremarkable. No ascites is seen in the abdomen. IMPRESSION: 1. Hepatosplenomegaly. 2. 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 Signed: Carrington Garcia MD Report Verified Date/Time: 11/17/2019 1 0:43:53 Reading Location: [facility] B1 C013Y CT Body R eading Room Performing Organization Address City/State/Zipcode Phone Number RIS Renin, plasma (11/08/2019 8:22 AM CDT)Only the most recent of2 resultswithin the time period is included. PRA,LC/MS/MS 0.35 0.25 - 5.82 [facility] Comment: ng/mL/h INCORPORATED This test was developed and its analytical perfo rmance characteristics have been determined by [employer] [facility]. It has not been cleared or approved by FDA. This assay has been validated pursuant to the CLIA regulations and is used for clinical purposes. Specimen Blood Narrative Performed At Performing Lab [facility] E[facility] [address] [address] [place] [address] Katrin Skelton MD, PhD, DAJUAN Performing Organization Address City/[facility]/Zipcode Phone Number [facility] [place] [address] INCORPORATED [address] [facility] REPORT OF PROCEDURE - ENDOSCOPY URL (11/07/2019 12:17 PM CDT) Narrative Performed At This result has an attachment that is no t available. Urea Nitrogen, random urine (11/06/2019 11:29 AM CDT)Only the most recent of3 resultswithin the time period is included. Urea Nitrogen, Ur 179 mg/dL [facility] Specimen Urine Narrative Performed At Reference Range: No Normals [facility] Core Driller Helper ID - ANA M Performing Organization Address [facility] [place] [address] CENTER Sodium, random urine (11/06/2019 11:29 AM CDT)Only the most recent of3 results within the time period is included. Sodium Urine 91 meq/L [facility] Specimen Urine Narrative Performed At Reference Range: No Normals [facility] Core Driller Helper ID - ANA M Performing Organization Address [facility]/Zipcode Phone Number [address] [address] CENTER Potassium, random urine (11/06/2019 11:29 AM CDT)Only the most recent of3 resultswithin the time period is included. Potassium Urine 19.1 meq/L [facility] Specimen Urine Narrative Performed At Reference Range: No Normals [facility] Core Driller Helper ID - ANA Puri Performing Organization Address City/State/Zipcode Phone Number [address] [address] CENTER Creatinine, random urine (11/06/2019 11:29 AM CDT)Only the most recent of3 resultswithin the time period is included. Creatinine, Ur 19.6 mg/dL [facility] Specimen Urine Narrative Performed At Reference Range: No Normals [facility] Core Driller Helper ID - ANA Puri Performing Organization Address City/State/Zipcode Phone Number [address] [address] CENTER Chloride, random urine (11/06/2019 11:29 AM CDT)Only the most recent of3 results within the time period is included. ChlorideUr 104 meq/L [facility] Specimen Urine Narrative Performed At Reference Range: No Normals [facility] Core Driller Helper ID - ANA Puri Performing Organization Address City/[facility]/Zipcode Phone Number [address] [address] CENTER Lactate dehydrogenase (LDH) (11/06/2019 4:35 AM CDT) LDH 171 125 - 220 U/L [facility] Specimen Blood Narrative Performed At Core Driller Helper ID - IDALIA Dodd [facility] Performing Organization Address City/State/Zipcode Phone Number [address] [address] CENTER Haptoglobin (11/06/2019 4:35 AM CDT) Haptoglobin 42 14 - 258 mg/dL [facility] Specimen Blood Narrative Performed At Core Driller Helper ID - ANA Puri [facility] Performing Organization Address City/State/Zipcode Phone Number [address] [address] [place] Potassium-Stat Lab (11/05/2019 12:29 PM CDT)Only the most recent of3 results within the time period is included. Potassium 5.5 3.6 - 5.5 meq/L [facility] Specimen Blood, Arterial Performing Organization Address [facility]/Zipcode Phone Number [address] [address] [place] Pancreatic elastase, fecal (11/05/2019 2:11 AM CDT) Pancreatic Elastase 140 (L) mcg/g [facility] Comment: INCORPORATED Adult and Pediatric Reference Ranges for Pancreatic Elastase-1: Normal:>200 mcg/g Moderate Pancreatic Insufficiency: 100-200 mcg/g Severe Pancreatic Insufficiency:<100 mcg/g Elastase-1 (E-1) assay results are expressed in mcg/g, which represent mcg E1/g feces. It is not necessary to interrupt enzyme substitution therapy. Specimen Stool Narrative Performed At Performing Lab [facility] beSUCCESSi [address] [address] [place] [address] Katrin Skelton MD, PhD, DAJUAN Performing Organization Address [facility] Number [place] [address] INCORPORATED [address] [facility] [place] ACTH (11/04/2019 10:35 AM CDT)Only the most recent of2 resultswithin the time period is included. ACTH 16 6 - 50 pg/mL [facility] Comment: Reference range applies only to the specimens co llected between 7am-10am. Specimen Blood Narrative Performed At Performing Lab [facility] beSUCCESSi [address] [address] [place] [address] Katrin Skelton MD, PhD, DAJUAN Performing Organization Address [facility] Number [place] [address] INCORPORATED [address] [employer] Osmolality, urine (11/03/2019 5:16 PM CDT) Osmolality, Ur 427 50-1,200 mOsm/kg mOsm/kg [facility] Specimen Urine Performing Organization Address [facility] Phone Number [address] [address] [place] Osmolality, serum (11/03/2019 4:25 PM CDT) Osmolality Serum 286 275 - 295 mOsm/kg [facility] Specimen Blood Performing Organization Address City/[facility] Phone Number [address] [address] [place] Creatine Kinase (CK) (11/03/2019 7:34 AM CDT) Total CK 49 29 - 200 U/L [facility] Specimen Blood Narrative Performed At Core Driller Helper ID - RADHA Foy [facility] [place] Performing Organization Address [facility] [place] [address] [address] [place] Calcium, Ionized (11/03/2019 4:54 AM CDT)Only the most recent of4 resultswithin the time period is included. Calcium, Ion 1.24 1.12 - 1.27 mmol/L [facility] pH, Blood 7.28 [facility] Specimen Blood Performing Organization Address [facility] [place] Phone Number [address] [address] [place] Vitamin B12 and Folate (10/31/2019 4:20 AM CDT) Vitamin B12 518 213 - 816 pg/mL [facility] Folate 30.00 >=7.00 ng/mL [facility] Specimen Blood Narrative Performed At [employer] Driller Helper ID Laura VERDENA Ale [facility] Performing Organization Address [facility] Phone Number [address] [address] [place] Hemoglobin A1c (10/31/2019 4:20 AM CDT) Hemoglobin A1C 5.1 4.3 - 6.1 % [facility] Specimen Blood Performing Organization Address City/[facility] Phone Number [address] [phone] [place] Lipid panel (10/31/2019 4:20 AM CDT) Triglycerides 96 mg/dL [facility] Cholesterol 158 mg/dL [facility] HDL 67 mg/dL [facility] LDL Calculated 72 mg/dL [facility] Specimen Blood Narrative Performed At Triglyceride Reference Range: [facility] Low Risk <150 [id number] High Risk 200-499 Very High Risk>=500 Cholesterol Reference Range: Low Risk <200 [id number] High Risk>240 HDL Cholesterol Reference Range: Low Risk >=60 High Risk <40 LDL Cholesterol Reference Range: Optimal<100 Near [id number] Very High >=190 [employer] Helper ID - [email or web address] Ale Performing Organization Address City/[facility]/Zipcode Phone Number [phone] [place] CT/CTA abdomen & pelvis (10/30/2019 11:50 AM CDT) Specimen Narrative Performed At FINAL REPORT [employer] [facility] ABDOMINAL AND PELVIS CT DATED 10/30/2019 CLINICAL INFORMATION:PANCREATITIS RECTAL BLEEDING SMV thromobis, on xarelto, rectal bleedi ng TECHNIQUE:Axial images of the abdome n and pelvis were obtained from diaphragm to the pubic symphysis with an d without intravenous contrast. This exam was performed according to our departmental dose-optimization program, which include s automated exposure control, adjustment of the mA and/or kV according to patient size and/or use of interactive reconstruction technique. COMMENT: Liver and spleen are normal in size without focal abnormality.Gallbladder is contracte d. No gallstone or biliary dilatation is noted. Pancreas and adrenals are unremarkable. Both kidneys are normal in size and func tioning. 2 small subcentimeter stones are seen in the rig ht kidney without hydronephrosis measuring up to 2 mm in s ize. The small and large bowel are suboptimal ly evaluated secondary to motion artifact. No active bleeding is i dentified in the GI tract. Abdominal aorta is normal in caliber. Prostate is normal in size. The urinary bladder is minimally distended. No mass, adenopathy or ascites is presen t. IMPRESSION:No active GI bleeding hima ntified. Signed: Carrington Garcia MD Report Verified Date/Time:10/30/2019 12:49:58 Reading Location: [address] Consult R [facility] Room Procedure Note Interface, External Ris In - 10/30/2019 12:52 PM CDT FINAL REPORT ABDOMINAL AND PELVIS CT DATED 10/30/2019 CLINICAL INFORMATION: PANCREATITIS RECTAL BLEEDING SMV thromobis, on xarelto, rectal bleedi ng TECHNIQUE: Axial images of the abdomen and pelvis were obtained from diaphragm to the pubic symphysis with an d without intravenous contrast. This exam was performed according to our departmental dose-optimization program, which include s automated exposure control, adjustment of the mA and/or kV according to patient size and/or use of interactive reconstruction technique. COMMENT: Liver and spleen are normal in size without focal abnormality. Gallbladder is contracted. No gallstone or biliary dilatation is noted. Pancreas and adrenals are unremarkable. Both kidneys are normal in size and func tioning. 2 small subcentimeter stones are seen in the rig ht kidney without hydronephrosis measuring up to 2 mm in s ize. The small and large bowel are suboptimal ly evaluated secondary to motion artifact. No active bleeding is i dentified in the GI tract. Abdominal aorta is normal in caliber. Prostate is normal in size. The urinary bladder is minimally distended. No mass, adenopathy or ascites is presen t. IMPRESSION: No active GI bleeding ident ified. Signed: Carrington Garcia MD Report Verified Date/Time: 10/30/2019 1 2:49:58 Reading Location: [facility] [id number] Consult R [facility] Room Performing Organization Address City/State/Zipcode Phone Number [facility] Urinalysis w/Microscopic + Reflex to Culture (10/21/2019 2:07 PM CDT) Color, UA Colorless [facility] Clarity, UA Clear [facility] Specific [place], UA 1.008 1.001 - 1.035 [facility] pH, UA 6.0 5.0 - 8.[address] [facility] Protein, UA Negative Negative [facility] Glucose, UA Negative Negative [facility] Ketones, UA Negative Negative [facility] Bilirubin, UA Negative Negative [facility] Blood, UA Negative Negative [facility] Nitrite, UA Negative Negative [facility] Leukocytes, UA Negative Negative [facility] Urobilinogen, UA 0.2 0.2 - 1.0 mg/dL [facility] RBC, UA 0 /HPF [facility] WBC, UA 1 /HPF [facility] Squam Epithel, UA <1 /HPF [facility] Specimen Source [facility] Specimen Urine Narrative Performed At [facility] Driller Helper ID - [auto] [facility] Core Driller Helper ID - [email or web address] Performing Organization Address City/State/Zipcode Phone Number [facility] [address] [facility] [place] [address] CENTER after 03/25/2019 Insurance Payer Benefit Plan / Group Subscriber ID Type Phone A ddress CDC REVIEW CDC REVIEW xxxxxxxx [address] [place], [place] [phone] Advance Directives For more information, please contact:[place] [address] [address] [place], [place] [phone] Code Status Date Activated Date Inactivated Comments Full Code 03/15/2020 2:11 PM 03/19/2020 1:58 PM This code status was determined by: Patient Full Code 02/28/2020 10:43 AM 03/15/2020 2:11 PM This code status was determined by: Patient Full Code 02/15/2020 5:37 PM 02/23/2020 12:43 PM This code status was determined by: Patient Full Code 01/23/2020 2:32 AM 01/26/2020 6:14 PM This code status was determined by: Patient Full Code 12/17/2019 9:36 PM 12/26/2019 4:49 PM This code status was determined by: Patient
--- OUTSIDE RECORDS SUMMARY | 2020-03-25 14:43 | XMS REPORT | Continuity of Care Document ---
:1985 Author Organization [facility] t Address [address] [place] [address] Care Team Providers Name Role Phone Pcp Primary Care Physician Unavailable Lauren HEATH Attending Clinician Chris HEATH Attending Clinician Susie Gillespie MD Attending Clinician Savage HEATH P. Attending Clinician Chad HEATH Attending Clinician Merchant HEATH Attending Clinician Hebert HEATH Attending Clinician Jann HEATH, F. Attending Clinician LAUREN Attending Clinician Unavailable JANET Attending Clinician Unavailable Janet HEATH Attending Clinician Mini HEATH Attending Clinician Kena HEATH Attending Clinician Eleni Cabrera Attending Clinician Genia Rincon Attending Clinician Alexey HEATH Attending Clinician Eliana HEATH Attending Clinician Suhail Carlin MD Attending Clinician [phone] ALEXEY Attending Clinician Unavailable Bhumi Calderon Attending Clinician Erin Paula MD, Nazanin Attending Clinician [phone] Lela Alegria MD Attending Clinician Jen Delacruz MD Attending Clinician Jaxson Belle CRNA Attending Clinician Valarie Marti MD Attending Clinician LELA ALEGRIA Attending Clinician Unavailable Yuliet HEATH Attending Clinician Casey HEATH Attending Clinician Lydia HEATH Attending Clinician Jordan Nogueira MD Attending Clinician Gilberto Kerns MD Attending Clinician YULIET Attending Clinician Unavailable Duglas Naidu MD Attending Clinician Duglas NAIDU Attending Clinician Unavailable DAVID GIBSON Attending Clinician Unavailable SYBIL YAÑEZ Attending Clinician Unavailable SUHAIL CARLIN Attending Clinician Unavailable ROCÍO MENDEZ Attending Clinician Unavailable Genia NELSON Attending Clinician Unavailable JONEL Attending Clinician Unavailable SUSIE GILLESPIE Admitting Clinician Unavailable MINI Admitting Clinician Unavailable SUHAIL CARLIN Admitting Clinician Unavailable Bhumi CALDERON Admitting Clinician Unavailable CASEY Admitting Clinician Unavailable ELIANA Admitting Clinician Unavailable SYBIL YAÑEZ Admitting Clinician Unavailable ROCÍO MENDEZ Admitting Clinician Unavailable Genia NELSON Admitting Clinician Unavailable JONEL Admitting Clinician Unavailable Payers Payer Name Policy Type Policy Number Effective Date Expiration Date S saida CDC REVIEWCDC xxxxxxxx [facility] REVIEWxxxxxxxxPO [facility] [id number] Center Problems Condition Condition Condition Status Onset Resolution Last Treating Co mments Source Name Details Category Date Date Treatment Clinician Date Acute Acute Disease Active [facility] pancreatit pancreatit 02-27 Eneida kes - is is 00:00: Medical 00 Center Other Other Disease Active 2020-[address] [facility] acute acute 8-03 [facility] pancreatit pancreatit 00:00: Me dical is with is with 00 Center uninfected uninfected necrosis necrosis Hematemesi Hematemesi Disease Active 2020-[address] s, s, 7-09 [facility] presence presence 00:00: Medica l of nausea of nausea 00 Cent er not not specified specified 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:00: Medical thrombosis thrombosis 00 Ce nter GI bleed GI bleed Disease Active 2019-0 [facility] Medical 00 Center 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 5-03 [facility] - pancreatit pancreatit 00:00: Me dical is is 00 Center Abdominal Abdominal Disease Active 2020-[address] [facility] pain pain 5-03 [facility] - 00:00: Medical 00 Center Acute Acute Disease Active 2020-[address] [facility] abdominal abdominal 5-02 [facility] - pain pain 00:00: Medical 00 Center Rectal Rectal Disease Active 2020-[address] [facility] bleeding bleeding 5-01 [facility] - 00:[facility]: Medical 00 Center Adrenal Adrenal Disease Active 2020-[address] [facility] [address] insufficie insufficie 4-27 Eneida kes - ncy ncy 00:00: Medical 00 Center Hyperkalem Hyperkalem Disease Active 2020-[address] ia ia 4-27 [facility] - 00:00: Medical 00 Center GI GI Disease Active 2020-[address] [facility] bleeding bleeding 4-16 [facility] - 00:00: Medical 00 Center Acute on Acute on Disease Active 2020-0 [facility] chronic chronic 4-16 [facility] - pancreatit pancreatit 00:00: Me dical is is 00 Center Lactic Lactic Disease Active 2020-[address] [facility] acidosis acidosis 4-16 [facility] - 00:00: Medical 00 Center Epigastric Epigastric Disease Active 2020-[address] pain pain 4-16 [facility] - 00:00: Medical 00 Center Splenic Splenic Disease Active 2020-[address] [facility] [address] vein vein 4-07 [facility] - thrombosis thrombosis 00:00: Me dical 00 Center 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 9-05 Eneida kes - vein vein 00:00: Medical thrombosis thrombosis 00 Ce nter Acute on Acute on Disease Active 2019-0 [facility] chronic chronic 9-04 [facility] - pancreatit pancreatit 00:00: Me dical is is 00 Center Acute Acute Disease Active [facility] liver liver 8-02 [facility] - failure failure 00:00: Medical [place] Anemia Anemia Disease Active [facility] 7- [facility] - 00:[facility]: Medical [place] Pancreatit Pancreatit Disease Active [facility] is, is, 02-12 [facility] - alcoholic, alcoholic, 00:00: Me dical acute acute 00 Center Acute Acute Disease Active [facility] blood loss blood loss 02-12 Eneida kes - anemia anemia 00:00: Medical 00 [place] Hypokalemi Hypokalemi Disease Active [facility] a a 5- [facility] - 00:00: Medical 00 [place] Hypertensi Hypertensi Disease Active [facility] on on 3-20 [facility] - 00:00: Medical 00 [place] Alcohol Alcohol Disease Active [facility] withdrawal withdrawal 317 Eneida kes - 00:00: Medical 00 Center Allergies, Adverse Reactions, Alerts This patient has no known allergies or adverse reactions. Family History Family Member Diagnosis Comments Start Date Stop Date Source Natural mother Hypertension [facility] Social History Social Habit Start Date Stop Date Quantity Comments Source History of tobacco Cigarette Smoker [facility] use [facility] History [facility] - Alcohol Std Drinks Medica [facility] History [facility] - Alcohol Binge Medical Saw ter Sex Assigned At [facility] Cigarettes smoked 2020-03-05 2020-03-05 [facility] - current (pack per 00:00:00 00:00:00 [facility] day) - Reported History [facility] 2019-11-14 2019-11-14 [address] [facility] - Alcohol Frequency 00:00:00 00:00:00 [facility] Alcohol Comment 2018-10-28 2018-10-28 1 pint of vodka [facility] - 00:00:00 00:00:00 every day for 9 Medical enter months Smoking Status Start Date Stop Date Source Current every day smoker 2020-03-05 00:00:00 [facility] Medications Ordered Filled Start Stop Current Ordering Indication Dosage Frequency Signature Comments Components Source Medication Medication Date Date Medication? Clinician (SIG) Name Name oxyCODONE-a 2020-0 2020- Yes 1{tbl} Take [address] cetaminophe 03-19 tablet by Eneida cheatham - n 00:00: 23:59 mouth Medical (PERCOCET) 00 :00 every 8 Center 5-325 mg (eight) per tablet hours as needed for Pain for up to 10 days. Max Daily Amount: 3 tablets ondansetron 2019- Yes 4mg Take [address] [facility] (ZOFRAN-ODT 03-19 tablet (4 Eneida kes - ) 4 MG 00:00: 23:59 mg total) Medic al disintegrat 00 :00 by mouth Cent er ing tablet every 6 (six) hours as needed for up to 7 days. fludrocorti 2019- Yes .1mg QD Take [address] [facility] [address] sone 02-23 tablet [facility] - (FLORINEF) 00:00: 23:59 (0.1 mg Med ical 0.1 mg 00 :00 total) by Center tablet mouth daily for 90 days. nicotine 2019- Yes 1{patch QD Place [address] (NICODERM 02-23 } patch onto Shawn es - CQ) 7 mg/24 00:00: 23:59 the skin M edical hr patch 00 :00 daily for Center 90 days. folic acid 2020- Yes 1mg QD Take [address] [facility] (FOLVITE) 1 02-22 tablet (1 Eneida kes - MG tablet 00:00: 23:59 mg total) Me dical 00 :00 by mouth Center daily. pregabalin 2019- Yes 50mg Q.5D Take [address] [facility] (LYRICA) 50 02-22 capsule Luke s - MG capsule 00:00: 23:59 (50 mg Medi elvira 00 :00 total) by Center mouth 2 (two) times daily for 90 days. Max Daily Amount: 100 mg pantoprazol 2019- Yes 40mg Q.5D Take [address] [facility] e 02-22 tablet (40 [facility] - (PROTONIX) 00:00: 23:59 mg total) M edical 40 MG 00 :00 by mouth 2 Center tablet (two) times daily for 60 days. lidocaine 2020- No 1{patch Q24H Place [address] (LIDODERM) 02-22 } patch onto Eneida chaudhrys - 5 % patch 00:00: 23:59 the skin Med ical 00 :00 daily for Center 30 days Remove & Discard patch within 12 hours or as directed by . ondansetron 2019- No 4mg Take [address] [facility] (ZOFRAN-ODT 02-22 tablet (4 Eneida kes - ) 4 MG 00:00: 00:00 mg total) Medic al disintegrat 00 :00 by mouth Cent er ing tablet every 6 (six) hours as needed for up to 7 days. oxyCODONE-a 2019- No 1{tbl} Take [address] cetaminophe 02-22 tablet by Eneida hurd 00:00: 00:00 mouth Medical (PERCOCET) 00 :00 every 8 Center 5-325 mg (eight) per tablet hours as needed for Pain for up to 10 days. Max Daily Amount: 3 tablets HYDROcodone 2019- No 1{tbl} Take [address] -acetaminop 02-22- tablet by Eneida paige (NORCO 00:00: 00:00 mouth Medic al 10-325) 00 :00 every 6 Center 10-325 mg (six) per tablet hours as needed for up to 10 days. Max Daily Amount: 4 tablets hyoscyamine 2019- No 125ug Take [address] (LEVSIN/SL) 01-25- tablet [facility] - 0.125 mg SL 00:00: 23:59 (125 mcg M edical tablet 00 :00 total) by Center mouth every 6 (six) hours for 10 days. oxyCODONE-a 2019- No 1{tbl} Take [address] cetaminophe 01-25 tablet by Eneida hurd 00:00: 23:59 mouth Medical (PERCOCET) 00 :00 every 6 Center 10-325 mg (six) per tablet hours for 10 days. Max Daily Amount: 4 tablets ondansetron 2019- No 4mg Take [address] [facility] (ZOFRAN-ODT 01-25 07-20 tablet (4 Eneida kes - ) 4 MG 00:00: 23:59 mg total) Medic al disintegrat 00 :00 by mouth Cent er ing tablet every 8 (eight) hours as needed for up to 7 days. warfarin 2019- 2020- No 2.5mg QD Take 2.[address] [facility] [address] (COUMADIN, 6-12 06-12 mg by [facility]ukes - JANTOVEN) 14:13: 00:00 mouth Medica l 2.5 MG 24 :00 daily. Center tablet warfarin 2020-0 Yes 5mg QD Take [address] [facility] (COUMADIN, 6-12 tablets (5 Shawn es - JANTOVEN) 00:00: mg total) Med ical 2.5 MG 00 by mouth Center tablet daily. gabapentin 2019-2019- No 300mg [id number] Take [address] [facility] (NEURONTIN) 12-25 08-10 [id number] capsule [facility] - 300 MG 00:00: 00:00 3D (300 mg Medical capsule 00 :00 total) by Center mouth 3 (three) times daily for 90 days. oxyCODONE-a 2019- No 1{tbl} Take [address] cetaminophe 12-25- tablet by Eneida kes - n 00:00: 23:59 mouth Medical (PERCOCET) 00 :00 every 6 Center 10-325 mg (six) per tablet hours as needed for up to 10 days. Max Daily Amount: 4 tablets enoxaparin 2019- No 70mg Inject 0.[address] [facility] [address] (LOVENOX) 12-25-17 mLs (70 mg Shawn es - 80 mg/0.8 00:00: 23:59 total) Medic al mL Syrg 00 :00 [facility] Center usly every 12 (twelve) hours for 5 days. enoxaparin 2019- No 70mg Inject 0.[address] [facility] (LOVENOX) 12-22 06-12 mLs (70 mg Shawn es - 80 mg/0.8 00:00: 00:00 total) Medic al mL Syrg 00 :00 [facility] usly every 12 (twelve) hours for 14 days. pantoprazol 2019- 2020- No 40mg QD Take [address] e 5-18 05-18 by mouth [facility] - (PROTONIX) 14:24: 00:00 daily. Medi elvira 40 MG 29 :00 Center tablet propranoloL 2020- No 20mg Q.[id number] Take [address] [facility] (INDERAL) 5-18 05-18 [id number] by mouth 3 [facility] - 20 MG 14:24: 00:00 3D (three) Medical tablet 29 :00 times Center daily. propranoloL 2020-0 Yes 20mg Q.[id number] Take [address] [facility] (INDERAL) 5-18 [id number] tablet (20 [facility] - 20 MG 00:00: 3D mg total) Medical tablet 00 by mouth 3 Center (three) times daily. senna-docus 2020- No 1{tbl} Q.5D Take [address] ate 18 05-18 tablet by Christiano - (SENOKOT S) 00:00: 23:59 mouth 2 Me dical 8.6-50 mg 00 :00 (two) Center per tablet times daily. pantoprazol 2019- No 40mg QD Take [address] [facility] e 11-30 08-10 tablet (40 [facility] - (PROTONIX) 00:00: 00:00 mg total) M edical 40 MG 00 :00 by mouth Center tablet daily. pancrelipas 2019- No [id number]{ Take [address] [facility] [facility] e, 18 06-17 lipase} capsule [facility] - Lip-Prot-Am 00:00: 23:59 (24,000 Me dical yl, (CREON) 00 :00 units of Cent er 24,000-76,0 lipase 00 -120,000 total) by unit CpDR mouth 3 capsule (three) times daily with meals for 30 days. warfarin 2019- No 5mg QD Take [address] [facility] (COUMADIN, 11-30 06-03 tablet (5 Shawn es - JANTOVEN) 5 00:00: 00:00 mg total) Medical MG tablet 00 :00 by mouth Center every evening for 90 days. oxyCODONE-a 2019-2019- No 1{tbl} Take [address] cetaminophe -18 06-02 tablet by Eneida chaudhrys - n 00:00: 23:59 mouth Medical (PERCOCET) 00 :00 every 8 Center 10-325 mg (eight) per tablet hours as needed for Pain for up to 15 days. Max Daily Amount: 3 tablets promethazin 2019- No 25mg Take [address] [facility] e 5-18 05-25 tablet (25 [facility] - (PHENERGAN) 00:00: 23:59 mg total) Medical 25 MG 00 :00 by mouth Center tablet every 6 (six) hours as needed for up to 7 days. ondansetron 2019- No 4mg Take [address] [facility] (ZOFRAN-ODT 4-27 05-18 tablet (4 Eneida kes - ) 4 MG 00:00: 00:00 mg total) Medic al disintegrat 00 :00 by mouth Cent er ing tablet every 8 (eight) hours as needed for up to 7 days. oxyCODONE-a 2019- No 1{tbl} Take [address] cetaminophe 4-27 05-18 tablet by Eneida kes - n 00:00: 00:00 mouth Medical (PERCOCET) 00 :00 every 6 Center 10-325 mg (six) per tablet hours as needed. Max Daily Amount: 4 tablets amLODIPine 2019- No 5mg QD Take [address] [facility] (NORVASC) 5 4-11 05-18 tablet (5 Eneida kes - MG tablet 00:00: 00:00 mg total) Me dical 00 :00 by mouth Center daily. rivaroxaban 2019- No 20mg Take [address] [facility] (XARELTO) 4-10 05-18 tablet (20 Shawn es - 20 mg Tab 00:00: 00:00 mg total) Me dical tablet 00 :00 by mouth Center daily with dinner for 30 days. ondansetron 2019- No 4mg Take [address] [facility] (ZOFRAN-ODT 4-10 04-27 tablet (4 Eneida kes - ) 4 MG 00:00: 00:00 mg total) Medic al disintegrat 00 :00 by mouth Cent er ing tablet every 8 (eight) hours as needed for up to 7 days. oxyCODONE-a 2019-2019- No 1{tbl} Take [address] cetaminophe 4-10 04-27 tablet by Eneida kes - n 00:00: 00:00 mouth Medical (PERCOCET) 00 :00 every 4 Center 10-325 mg (four) per tablet hours as needed for up to 10 days. Max Daily Amount: 6 tablets sucralfate 2019-0 Yes 1{tbl} Take [address] [facility] (CARAFATE) 2-05 tablet by Luke s - 1 gram 00:00: mouth 4 Medical tablet 00 (four) Center times daily before meals and nightly. rivaroxaban 2018- No 20mg Take [address] [facility] (XARELTO) 04-12 tablet (20 Shawn es - 20 mg Tab 00:00: 23:59 mg total) Me dical tablet 00 :00 by mouth Center daily with dinner for 90 days. amLODIPine 2018- No 10mg QD Take [address] [facility] (NORVASC) 03-25 tablet (10 Shawn es - 10 MG 00:00: 23:59 mg total) Medica l tablet 00 :00 by mouth Center daily for 90 days. nicotine 2018- No 1{patch QD Place [address] [facility] [address] [facility] (NICODERM 03-24 } patch onto Shawn es - CQ) 21 00:00: 23:59 the skin Medica l mg/24 hr 00 :00 daily for Center patch 84 days. rivaroxaban 2018- No 15mg Take [address] [facility] (XARELTO) 03-24 tablet (15 Shawn es - 15 mg Tab 00:00: 23:59 mg total) Me dical tablet 00 :00 by mouth 2 Center (two) times daily with breakfast and dinner for 20 days. acetaminoph 2018- No 1{tbl} Take [address] en-codeine 03-24 tablet by Shawn es - (TYLENOL-CO 00:00: 23:59 mouth Medi elvira DEINE #3) 00 :00 every 4 Center 300-30 mg (four) per tablet hours as needed for Pain for up to 10 days. Max Daily Amount: 6 tablets ondansetron 2018- No 4mg Take [address] [facility] (ZOFRAN-ODT 03-24 tablet (4 Eneida kes - ) 4 MG 00:00: 23:59 mg total) Medic al disintegrat 00 :00 by mouth Cent er ing tablet every 8 (eight) hours as needed for up to 7 days. folic acid 2019- No 1mg QD Take [address] [facility] [address] (FOLVITE) 1 02-16 08-10 tablet (1 Eneida kes - MG tablet 00:00: 00:00 mg total) Me dical 00 :00 by mouth Center daily. multivitami 2019- No 1{tbl} QD Take [address] n 8- 05-18 tablet by [facility]ukes - (THERAGRAN) 00:00: 00:00 mouth Medi elvira tablet 00 :00 daily. [place] pantoprazol 2019- No 40mg Q.5D Take [address] [facility] e 02-15 11- tablet (40 [facility] - (PROTONIX) 00:00: 23:59 mg total) M edical 40 MG 00 :00 by mouth 2 Center tablet (two) times daily for 90 days. cyanocobala Yes QD Take by [facility] min 7-31 mouth [facility] - (VITAMIN 12:51: daily. Medical B-12) 100 30 Center MCG tablet thiamine 2019- No 100mg QD Take 1 [facility] 100 MG 3-21 03-20 tablet [facility] - tablet 00:00: 23:59 (100 mg Medical 00 :00 total) by Center mouth daily. Vital Signs Vital Name Observation Time Observation Value Comments Source Systolic blood 2020-03-19 07:47:00 117 mm[Hg] [facility] Diastolic blood 2020-03-19 07:47:00 79 mm[Hg] [facility] S [facility] Heart rate 2020-03-19 07:47:00 97 /min [facility] Body temperature 2020-03-19 07:47:00 36 [facility] Respiratory rate 2020-03-19 07:47:00 18 /min [facility] Oxygen saturation in 2020-03-19 07:47:00 99 /min [facility] Arterial blood by Medical Ce nter Pulse oximetry Body weight Measured 2020-03-18 07:02:00 66.633 kg [facility] BMI 2020-03-18 07:02:00 20.49 kg/m2 [facility] Body height 2020-02-28 02:30:00 180.3 cm [facility] Procedures Procedure Date / Time Performing Clinician Source Performed REPORT OF PROCEDURE - 2020-03-23 15:01:52 Provider, Default [facility] - ENDOSCOPY SCAN Scanning [facility] RHYTHM STRIP - SCAN 2020-03-23 15:01:42 Provider [facility] POTASSIUM 2020-03-19 08:58:00 Merchant [facility] SARS-COV2/RT-PCR ([facility] & 2020-03-19 05:45:00 Jannette Wan [facility] - REF LABS) Medical [facility] 2020-03-19 05:33:00 [facility]-03[facility]19 [facility] 2020-03-19 05:[facility]-03-18 03:28[facility] 2020-03-18 03:28[facility] W/PLT COUNT & AUTO 2020-03-18 03:28[facility]-03-17 04:42:[facility] 2020-03-17 04:42:[facility] CBC W/PLT COUNT & AUTO 2020-03-17 04:42:[facility] 2020-03-16 04:50[facility]00 [facility] 2020-03-16 04:50[facility] 2020-03-16 [facility]:50[facility]O 2020-03-16 04:50:00 Chad, [facility] METABOLIC 2020-03-15 10:43:00 [facility] PHOSPHORUS 2020-03-15 05:23:00 [facility], [facility] MAGNESIUM 2020-03-15 05:23:00 [facility] CBC W/PLT COUNT & AUTO 2020-03-15 05:23:00 [facility] METABOLIC 2020-03-14 03:39:00 [facility] PHOSPHORUS 2020-03-14 03:39:00 Chad, [facility] MAGNESIUM 2020-03-14 03:39:00 [facility], [facility] CBC W/PLT COUNT & AUTO 2020-03-14 03:39:00 [facility] METABOLIC 2020-03-13 08:44:00 Chad, [facility] PHOSPHORUS 2020-03-13 06:43:00 Chad, [facility] MAGNESIUM 2020-03-13 06:43:00 Chad, [facility] CBC W/PLT COUNT & AUTO 2020-03-13 06:43:00 [facility] PHOSPHORUS 2020-03-12 04:18:00 Jannette Wan [facility] COMPREHENSIVE METABOLIC 2020-03-12 04:18:00 Chad, [facility] MAGNESIUM 2020-03-12 04:18:00 [facility] CBC W/PLT COUNT & AUTO 2020-03-12 04:18:00 [facility] SARS-COV2/RT-PCR ([facility] & 2020-03-11 20:27:[address] [facility]) [facility] PHOSPHORUS 2020-03-11 04:52:00 Jannette Wan [facility] TRIGLYCERIDES 2020-03-10 04:13:00 Jannette Wan [facility] HEPATIC FUNCTION PANEL 2020-03-10 04:13:00 Jannette Wan [facility] PHOSPHORUS 2020-03-10 04:13:00 Jannette Wan [facility] BASIC METABOLIC PANEL (7) 2020-03-10 04:13:00 Clement Bonilla [facility] XR CHEST 1 VIEW 2020-03-09 15:17:00 Jannette Wan Critical access hospital/BEDSIDE [facility] COMPREHENSIVE METABOLIC 2020-03-09 05:04:00 Cindy, [facility] CBC W/PLT COUNT & AUTO 2020-03-09 05:04:00 Jannette Wan [facility] NM HEPATOBILIARY (HIDA) 2020-03-08 12:26:00 Leopoldo Melendez [facility] COMPREHENSIVE METABOLIC 2020-03-08 06:42:00 Cindy, [facility] CBC W/PLT COUNT & AUTO 2020-03-08 05:10:00 Jannette Wan [facility] BASIC METABOLIC PANEL (7) 2020-03-07 03:39:00 Jannette Wan [facility] HEPATIC FUNCTION PANEL 2020-03-07 03:39:00 Weston Antonio [facility] LIPASE 2020-03-07 03:39:00 AzamunWeston [facility] CBC W/PLT COUNT & AUTO 2020-03-07 03:39:00 Jannette Wan [facility] CT ABDOMEN/PELVIS WITH IV 2020-03-06 20:18:00 Fawad Silverman [facility] BASIC METABOLIC PANEL (7) 2020-03-06 05:06:00 Jannette Wan [facility] TISSUE EXAM 2020-03-05 08:32:00 Rosa Forte [facility] LAPAROSCOPY,CHOLECYSTECTO 2020-03-05 07:30:00 Rosa Forte [facility] BASIC METABOLIC PANEL (7) 2020-03-05 04:32:00 Jannette Wan [facility] TRANSFUSION SERVICE 2020-03-04 18:00:40 James Salazar [facility] REPORT - SCAN Scanning [facility] BASIC METABOLIC PANEL (7) 2020-03-04 04:53:00 Jannette Wan [facility] TYPE AND SCREEN, 2020-03-03 14:49:00 Leslee Kitchen [facility] BASIC METABOLIC PANEL (7) 2020-03-03 06:29:00 Jannette Wan [facility] CBC W/PLT COUNT & AUTO 2020-03-03 06:29:00 Jannette Wan [facility] SARS-COV2/RT-PCR ([facility] & 2020-03-02 17:07:00 CindySarbjit [facility] REF LABS) [facility] HEMOGLOBIN AND HEMATOCRIT 2020-03-02 14:33:00 Jannette Wan [facility] BASIC METABOLIC PANEL (7) 2020-03-02 04:53:00 Jannette Wan [facility] CBC W/PLT COUNT & AUTO 2020-03-02 04:53:[address] PROTHROMBIN TIME/INR 2020-03-01 05:00:[address] [facility] BASIC METABOLIC PANEL (7) 2020-03-01 05:00:00 Jannette Wan [facility] CBC W/PLT COUNT & AUTO 2020-03-01 05:00:[address] [facility] PROTHROMBIN TIME/INR 2020-02-29 03:53:00 Ramona [facility] BASIC METABOLIC PANEL (7) 2020-02-29 03:53:00 PattiduglasCole [facility] HEPATIC FUNCTION PANEL 2020-02-29 03:53:00 HowiemarshallDariusz grandalucas [facility] CBC W/PLT COUNT & AUTO 2020-02-29 03:53:00 Dariusz Gillespiefroidvannessa [facility] DIFFERENTIAL [facility] URINALYSIS W/ MICROSCOPIC 2020-02-28 17:33:00 HowiemarshallduglasCole [facility] BASIC METABOLIC PANEL (7) 2020-02-28 17:05:00 HowieCole cummins [facility] PROTHROMBIN TIME/INR 2020-02-28 17:05:00 Cole Gillespie [facility] SARS-COV2/RT-PCR ([facility] & 2020-02-28 15:15:00 Cole Gillespie [facility] - REF LABS) [facility] ECG 12-LEAD 2020-02-28 15:06:26 Howiemaria g Katvannessa [facility] CT ABDOMEN/PELVIS WITH IV 2020-02-28 05:35:00 Kashmir Aguilar I [facility] CONTRAST [facility] COMPREHENSIVE METABOLIC 2020-02-28 02:29:[address] [facility] LIPASE 2020-02-28 02:29:00 Kashmir Aguilar [facility] MAGNESIUM 2020-02-28 02:29:00 Dariusz Gillespiewoovannessa [facility] CBC W/PLT COUNT & AUTO 2020-02-28 02:29:00 Kashmir Aguilar [facility] DIFFERENTIAL [facility] RHYTHM STRIP - SCAN 2020-02-26 10:44:24 Provider, Default [facility] RHYTHM STRIP - SCAN 2020-02-25 10:40:47 Provider, [facility] REPORT OF PROCEDURE - 2020-02-25 10:40:46 Provider, Default [facility] - ENDOSCOPY SCAN [facility] PROTHROMBIN TIME/INR 2020-02-23 05:03:00 Jeremy Escudero [facility] BASIC METABOLIC PANEL (7) 2020-02-23 05:03:00 Mini [facility] HEPATIC FUNCTION PANEL 2020-02-23 05:03:00 Mini [facility] MAGNESIUM 2020-02-23 05:03:00 Mini [facility] CBC W/PLT COUNT & AUTO 2020-02-23 05:03:00 Mini [facility] PROTHROMBIN TIME/INR 2020-02-22 05:11:00 Jeremy Escudero [facility] BASIC METABOLIC PANEL (7) 2020-02-22 05:11:00 Mini [facility] HEPATIC FUNCTION PANEL 2020-02-22 05:11:00 Mini [facility] MAGNESIUM 2020-02-22 05:11:00 Mini [facility] CBC W/PLT COUNT & AUTO 2020-02-22 05:11:00 Mini [facility] CORTISOL,60 MIN 2020-02-21 21:26:00 [facility] CORTISOL,30 MIN 2020-02-21 20:58:00 [facility] ACTH STIMULATION 2020-02-21 20:12:[address] [facility] CORTISOL,BASELINE 2020-02-21 20:12:00 [facility] BASIC METABOLIC PANEL (7) 2020-02-21 18:23:00 Ajit Trimble [facility] ECG 12-LEAD 2020-02-21 12:48:34 Unknown, Hl7 Doctor [facility] BASIC METABOLIC PANEL (7) 2020-02-21 11:05:00 Regulo Escudero [facility] PROTHROMBIN TIME/INR 2020-02-21 04:51:00 Jeremy Escudero [facility] TROPONIN I 2020-02-21 04:51:00 Jeremy Escudero [facility] BASIC METABOLIC PANEL (7) 2020-02-21 04:51:00 Regulo Escudero [facility] HEPATIC FUNCTION PANEL 2020-02-21 04:51:00 Mini [facility] MAGNESIUM 2020-02-21 04:51:00 Mini [facility] CBC W/PLT COUNT & AUTO 2020-02-21 04:51:00 Mini [facility] BASIC METABOLIC PANEL (7) 2020-02-21 00:22:00 Regulo Escudero [facility] POCT-GLUCOSE METER 2020-02-20 23:24:00 [facility]AD 2020-02-20 22:41:27 Unknown, Hl7 [facility] BASIC METABOLIC PANEL (7) 2020-02-20 21:17:00 Regulo Escudero [facility] TROPONIN I 2020-02-20 21:17:00 [facility] 12-LEAD 2020-02-20 17:42:41 Unknown, Hl7 [facility] ECG 12-LEAD 2020-02-20 17:42:08 Unknown, 7 [facility] HEMOGLOBIN AND HEMATOCRIT 2020-02-20 16:49:00 Regulo Escudero [facility] POTASSIUM 2020-02-20 16:47:00 [facility] BASIC METABOLIC PANEL (7) 2020-02-20 16:47:00 Regulo Escudero [facility] REPORT OF PROCEDURE - 2020-02-20 13:44:45 Wojciech Rincon [facility] ENDOSCOPY [facility] POTASSIUM 2020-02-20 09:36:00 Jeremy Escudero [facility] PROTHROMBIN TIME/INR 2020-02-20 05:02:00 Aby Bernal [facility] BASIC METABOLIC PANEL (7) 2020-02-20 05:02:00 Mini [facility] HEPATIC FUNCTION PANEL 2020-02-20 05:02:00 Mini [facility] MAGNESIUM 2020-02-20 05:02:00 Mini [facility] CBC W/PLT COUNT & AUTO 2020-02-20 05:02:00 Mini [facility] TISSUE EXAM 2020-02-19 13:22:00 MckenzieWojciech sndier [facility] UPPER ENDOSCOPY,FNA 2020-02-19 13:00:[address] [facility] - W/ULTRASOUND [facility] UPPER ENDOSCOPY,BIOPSY 2020-02-19 13:00:00 Wojciech Rincon [facility] PROTHROMBIN TIME/INR 2020-02-19 04:20:00 Aby Bernal [facility] BASIC METABOLIC PANEL (7) 2020-02-19 04:20:00 Mini [facility] HEPATIC FUNCTION PANEL 2020-02-19 04:20:00 Mini [facility] MAGNESIUM 2020-02-19 04:20:00 Mini [facility] CBC W/PLT COUNT & AUTO 2020-02-19 04:20:00 Mini [facility] CBC W/PLT COUNT & AUTO 2020-02-18 06:50:00 Mini [facility] BASIC METABOLIC PANEL (7) 2020-02-18 05:26:00 Mini [facility] HEPATIC FUNCTION PANEL 2020-02-18 05:26:00 Mini [facility] MAGNESIUM 2020-02-18 05:26:00 Mini [facility] SARS-COV2/RT-PCR ([facility] & 2020-02-17 20:42:00 Mini [facility]) [facility] ANTI-NUCLEAR ANTIBODY 2020-02-17 03:36:00 Griffith, [facility] IGG SUBCLASS-4 ONLY 2020-02-17 03:36:[address] [facility] IMMUNOGLOBULIN G (IGG) 2020-02-17 03:36:00 Nacho [facility] C-REACTIVE PROTEIN 2020-02-17 03:36:00 Nacho [facility] BASIC METABOLIC PANEL (7) 2020-02-17 03:36:00 Mini [facility] HEPATIC FUNCTION PANEL 2020-02-17 03:36:00 Mini [facility] MAGNESIUM 2020-02-17 03:36:00 Mini [facility] CBC W/PLT COUNT & AUTO 2020-02-17 03:36:00 Mini [facility] TRANSFUSION SERVICE 2020-02-16 18:02:03 Provider, Default [facility] REPORT - SCAN Scanning [facility] MISCELLANEOUS LAB ORDER 2020-02-16 17:23:00 Eric Oakes [facility] MAGNESIUM 2020-02-16 17:23:00 Mini [facility] BASIC METABOLIC PANEL (7) 2020-02-16 17:23:00 Mini [facility] ECG 12-LEAD 2020-02-16 16:10:58 Unknown, Hl7 Doctor [facility] BASIC METABOLIC PANEL (7) 2020-02-16 04:32:00 Mini [facility] HEPATIC FUNCTION PANEL 2020-02-16 04:32:00 Mini [facility] MAGNESIUM 2020-02-16 04:32:00 Mini [facility] CBC W/PLT COUNT & AUTO 2020-02-16 04:32:00 Mini [facility] RAPID DRUG SCREEN, URINE 2020-02-16 01:29:00 Mini [facility] PT/APTT 2020-02-15 20:02:00 Hyacinth Gonzales [facility] CT ABDOMEN/PELVIS WITH IV 2020-02-15 18:50:00 LimaCarli CH, I [facility] ED ECG INTERPRETATION 2020-02-15 16:36:07 Janet [facility] LIPASE 2020-02-15 15:35:00 Janet [facility] COMPREHENSIVE METABOLIC 2020-02-15 15:35:00 Janet [facility] TYPE AND SCREEN, 2020-02-15 15:35:00 Janet [facility] AUTOMATED [facility] CBC W/PLT COUNT & AUTO 2020-02-15 15:35:00 Janet, [facility] ECG 12-LEAD 2020-02-15 15:17:58 Unknown, Hl7 Doctor [facility] RHYTHM STRIP - SCAN 2020-02-04 12:10:22 Provider, [facility] RHYTHM STRIP - SCAN 2020-01-28 14:50:04 Provider, [facility] PROTHROMBIN TIME/INR 2020-01-26 05:13:00 Ken Roberson [facility] BASIC METABOLIC PANEL (7) 2020-01-25 04:07:00 [facility] HEPATIC FUNCTION PANEL 2020-01-25 04:07:00 [facility] MAGNESIUM 2020-01-25 04:07:00 [facility] PHOSPHORUS 2020-01-25 04:07:00 [facility] PROTHROMBIN TIME/INR 2020-01-25 04:07:00 Ken Roberson [facility] CBC W/PLT COUNT & AUTO 2020-01-25 04:07:[address] [facility] [address] ABD/PELVIS - PANCREAS 2020-01-25 00:40:00 Isreal Sheppard [facility] SARS-COV2/RT-PCR ([facility] & 2020-01-24 18:32:00 JorgeichLiza mae [facility] - REF LABS) [facility] PROTHROMBIN TIME/INR 2020-01-24 12:36:00 Edwinpam Ken [facility] BASIC METABOLIC PANEL (7) 2020-01-24 04:00:00 [facility] HEPATIC FUNCTION PANEL 2020-01-24 04:00:00 [facility] MAGNESIUM 2020-01-24 04:00:00 [facility] PHOSPHORUS 2020-01-24 04:00:00 [facility] CBC W/PLT COUNT & AUTO 2020-01-24 04:00:00 [facility] ETHANOL 2020-01-23 19:53:00 Shamika Nichols [facility] CBC (HEMOGRAM ONLY) 2020-01-23 19:53:00 [facility] PROTHROMBIN TIME/INR 2020-01-23 13:34:00 Ken Roberson [facility] CBC (HEMOGRAM ONLY) 2020-01-23 10:52:00 [facility] BASIC METABOLIC PANEL (7) 2020-01-23 05:06:00 [facility] HEPATIC FUNCTION PANEL 2020-01-23 05:06:00 [facility] MAGNESIUM 2020-01-23 05:06:00 [facility] PHOSPHORUS 2020-01-23 05:06:00 [facility] LACTIC ACID, VENOUS 2020-01-23 05:06:00 [facility] CBC W/PLT COUNT & AUTO 2020-01-23 05:06:00 [facility] SARS-COV2/RT-PCR ([facility] & 2020-01-22 23:49:00 David Mcnulty [facility] LABS) [facility] PT/APTT 2020-01-22 18:24:00 Therudana [facility] LIPASE 2020-01-22 18:24:00 Thestrudana [facility] COMPREHENSIVE METABOLIC 2020-01-22 18:24[facility] & AUTO 2020-01-22 18:24:00 [facility] RHYTHM STRIP - SCAN 2019-12-29 13:11:43 Provider [facility] PROTHROMBIN TIME/INR 2019-12-26 03:56:00 [facility]/INR 2019-12-25 04:15:00 [facility] PROTHROMBIN TIME/INR 2019-12-24 03:55:00 [facility] PROTHROMBIN TIME/INR 2019-12-23 05:10:00 [facility] BASIC METABOLIC PANEL (7) 2019-12-22 04:52:00 Eimly Calderonjose Tripathi [facility] PROTHROMBIN TIME/INR 2019-12-22 04:52:00 [place] [facility] CBC W/PLT COUNT & AUTO 2019-12-22 04:52:00 Will Calderon [facility] POCT-GLUCOSE METER 2019-12-21 17:31:00 Will Calderon [facility] BASIC METABOLIC PANEL (7) 2019-12-21 04:27:00 Will Calderon [facility] PROTHROMBIN TIME/INR 2019-12-21 04:27:00 [facility] CBC W/PLT COUNT & AUTO 2019-12-21 04:27:00 [facility] BASIC METABOLIC PANEL (7) 2019-12-20 03:53:00 Marlys Yañez [facility] PROTHROMBIN TIME/INR 2019-12-20 03:53:00 Marlys Yañez [facility] TRANSFUSION SERVICE 2019-12-19 17:51:09 ProviderJames [facility] PROTHROMBIN TIME/INR 2019-12-19 05:37:00 Marlys Yañez [facility] COMPREHENSIVE METABOLIC 2019-12-19 05:37:00 Will Calderon I [facility] CBC W/PLT COUNT & AUTO 2019-12-19 05:37:00 Will Calderon [facility] POCT-GLUCOSE METER 2019-12-18 21:47:00 [facility] URINALYSIS WITH 2019-12-18 10:28:00 Marlys Yañez [facility] IF INDICATED [facility] DRUG SCREEN, URINE, 2019-12-18 10:28:00 Will Calderon [facility] TROPONIN I 2019-12-18 10:26:[address]ñez [facility] LACTIC ACID, VENOUS 2019-12-18 10:26:00 [facility] POCT-GLUCOSE METER 2019-12-18 06:52:00 [facility] BLOOD GAS, ARTERIAL 2019-12-18 06:43:00 Marlys Yañez [facility] POCT-GLUCOSE METER 2019-12-18 06:23:00 [facility] LACTIC ACID, VENOUS 2019-12-18 02:29:00 Ganesh Herrera [facility] TROPONIN I 2019-12-18 02:29:[address]ñez [facility] BASIC METABOLIC PANEL (7) 2019-12-18 02:29:00 Marlys Yañez [facility] PROTHROMBIN TIME/INR 2019-12-18 02:29:00 Marlys Yañez [facility] TYPE AND SCREEN, 2019-12-18 02:29:00 Marlys Yañez [facility] es - AUTOMATED [facility] CBC W/PLT COUNT & AUTO 2019-12-18 02:29:00 Marlys Yañez [facility] DIFFERENTIAL [facility] SARS-COV2/RT-PCR ([facility] & 2019-12-18 00:15:00 [facility] - REF LABS) [facility] BLOOD CULTURE 2019-12-17 22:07:00 Thestru, [facility] CT ABDOMEN/PELVIS WITH IV 2019-12-17 22:04:00 [facility], [facility] LACTIC ACID, VENOUS 2019-12-17 20:35:00 Thestrup, [facility] OCCULT BLOOD, STOOL 2019-12-17 20:10:00 Thestru, [facility] PT/APTT 2019-12-17 20:10:00 Thestrup, [facility] LIPASE 2019-12-17 20:04:00 Grabiel Panda [facility] COMPREHENSIVE METABOLIC 2019-12-17 20:04:[address] [facility] CBC W/PLT COUNT & AUTO 2019-12-17 20:04:00 Grabiel Panda [facility] RHYTHM STRIP - SCAN 2019-12-03 13:10:13 James Salazar [facility] BASIC METABOLIC PANEL (7) 2019-12-01 03:42:00 Will Calderon [facility] PROTHROMBIN TIME/INR 2019-12-01 03:42:00 [place] [facility] CBC W/PLT COUNT & AUTO 2019-12-01 03:42:00 [place] [facility] BASIC METABOLIC PANEL (7) 2019-11-30 05:53:00 [place] [facility] PROTHROMBIN TIME/INR 2019-11-30 05:53:00 [facility] CBC W/PLT COUNT & AUTO 2019-11-30 05:53:00 [place] [facility] BASIC METABOLIC PANEL (7) 2019-11-29 04:24:00 [facility] PROTHROMBIN TIME/INR 2019-11-29 04:24:00 [facility] W/PLT COUNT & AUTO 2019-11-29 04:24:00 [facility]/INR 2019-11-28 03:33:00 [facility] CBC (HEMOGRAM ONLY) 2019-11-28 03:32:00 Mine [facility] BASIC METABOLIC PANEL (7) 2019-11-28 03:32:00 [facility]/INR 2019-11-27 03:46:00 Mine [facility] BASIC METABOLIC PANEL (7) 2019-11-27 03:46:00 [facility] CBC W/PLT COUNT & AUTO 2019-11-27 03:45:00 Mine [facility] BASIC METABOLIC PANEL (7) 2019-11-26 04:26:00 [facility] CBC (HEMOGRAM ONLY) 2019-11-26 03:43:00 Mine [facility] PROTHROMBIN TIME/INR 2019-11-26 03:43:00 [facility] US RENAL COMPLETE 2019-11-25 13:15:00 Mine [place] [facility] CORTISOL 2019-11-25 11:09:00 [facility] ALDOSTERONE 2019-11-25 11:09:00 Mine [facility] CBC (HEMOGRAM ONLY) 2019-11-25 03:26:00 Mine [facility] BASIC METABOLIC PANEL (7) 2019-11-25 03:26:00 Mine [facility] PROTHROMBIN TIME/INR 2019-11-25 03:26:00 Will Calderon [facility] BASIC METABOLIC PANEL (7) 2019-11-24 03:33:00 [place] [facility] CBC W/PLT COUNT & AUTO 2019-11-24 03:33:00 [place] [facility] BASIC METABOLIC PANEL (7) 2019-11-23 14:37:00 [facility] CBC (HEMOGRAM ONLY) 2019-11-23 05:56:00 [facility] BASIC METABOLIC PANEL (7) 2019-11-23 05:56:00 [facility] BASIC METABOLIC PANEL (7) 2019-11-22 17:19:00 [facility] COMPREHENSIVE METABOLIC 2019-11-22 08:17:00 Will Calderon I [facility] CBC W/PLT COUNT & AUTO 2019-11-22 05:29:00 [facility] REPORT OF PROCEDURE - 2019-11-21 15:07:45 Marti, [facility] COLONOSCOPY 2019-11-21 13:45:00 Marti [facility] CBC (HEMOGRAM ONLY) 2019-11-21 03:35:00 [facility] BASIC METABOLIC PANEL (7) 2019-11-21 03:35:00 [facility] BASIC METABOLIC PANEL (7) 2019-11-20 03:35:00 Emily [facility] CBC (HEMOGRAM ONLY) 2019-11-20 03:35:00 Emily [facility] BASIC METABOLIC PANEL (7) 2019-11-19 04:29:00 [facility] CBC (HEMOGRAM ONLY) 2019-11-19 04:29:00 [facility] JAK2 MUTATION ([id number]) 2019-11-19 04:29:00 Eneida, [facility] QUANTITATIVE [facility] CARDIOLIPIN ANTIBODIES, 2019-11-19 04:29:00 Eneida, [facility] - IGG AND IGM [facility] BETA-2 GLYCOPROTEIN 2019-11-19 04:29:00 Eneida, [facility] - ANTIBODIES [facility] PROTHROMBIN GENE MUTATION 2019-11-19 04:29:00 Eneida, [facility] FACTOR 5 LEIDEN PCR 2019-11-19 04:29:00 Eneida, [facility] - (THROMBOTIC RISK) [facility] [id number] I IGG 2019-11-19 04:29:00 Eneida, [facility] [id number]-[id number] I IGM 2019-11-19 04:29:00 Eneida, [facility] [id number] I IGA 2019-11-19 04:29:00 Eneida, [facility] BASIC METABOLIC PANEL (7) 2019-11-18 15:08:00 Will Calderon [facility] COMPREHENSIVE METABOLIC 2019-11-18 03:33:00 Will Calderon [facility] LACTIC ACID, VENOUS 2019-11-18 03:33:00 Nghia Liu [facility] CBC W/PLT COUNT & AUTO 2019-11-18 03:33:00 Will Calderon [facility] TROPONIN I 2019-11-17 21:36:00 Federico Alegria [facility] COMPREHENSIVE METABOLIC 2019-11-17 21:36:[address] [facility] LACTIC ACID, VENOUS 2019-11-17 21:36:00 Nghia Liu [facility] PROCALCITONIN 2019-11-17 21:36:00 Nghia Liu [facility] CBC W/PLT COUNT & AUTO 2019-11-17 21:36:00 Nghia Liu [facility] REPORT OF PROCEDURE - 2019-11-17 14:40:59 Provider, [facility] ENDOSCOPY SCAN Scanning [facility] MR ABDOMEN WITH & WITHOUT 2019-11-17 09:08:00 Alina Walton [facility] CONTRAST [facility] TROPONIN I 2019-11-14 19:05:00 Federico Alegria [facility] ETHANOL 2019-11-14 19:05:00 Willy Delacruz [facility] ECG 12-LEAD 2019-11-14 11:26:57 [facility]OLIC PANEL (7) 2019-11-14 11:17:00 Federico Alegria [facility] HEPATIC FUNCTION PANEL 2019-11-14 11:17:00 [facility] LIPASE 2019-11-14 11:17:00 [facility] PROTHROMBIN TIME/INR 2019-11-14 11:17:00 [facility] MAGNESIUM 2019-11-14 11:17:00 [facility] PHOSPHORUS 2019-11-14 11:17:00 Airam [facility] TROPONIN I 2019-11-14 11:17:00 Airam [facility] CBC W/PLT COUNT & AUTO 2019-11-14 11:17:00 Federico Alegria [facility] XR CHEST 1 VIEW 2019-11-14 11:14:00 [facility] RHYTHM STRIP - SCAN 2019-11-12 08:30:39 Provider, [facility] RHYTHM STRIP - SCAN 2019-11-10 13:37:01 Provider, [facility] BASIC METABOLIC PANEL (7) 2019-11-10 05:21:00 Anabel Freeman [facility] CORTISOL,60 MIN 2019-11-09 15:36:00 Lydia GurdeepBelinda [facility] BASIC METABOLIC PANEL (7) 2019-11-09 15:10:00 Gurdeep FreemanmelodieJennifer BOB [facility] ACTH STIMULATION 2019-11-09 15:10:00 Anabel Freeman [facility] CORTISOL,30 MIN 2019-11-09 15:10:00 Amadou FreemanJennifer [facility] ACTH STIMULATION 2019-11-09 14:27:00 Anabel Freeman [facility] CORTISOL,BASELINE 2019-11-09 14:27:00 Lydia Anabel [facility] RENIN, PLASMA 2019-11-08 08:22:00 Triozzi, [facility] ALDOSTERONE 2019-11-08 08:22:00 Triozzi, [facility] CORTISOL 2019-11-08 08:22:00 Triozzi, [facility] CBC (HEMOGRAM ONLY) 2019-11-08 04:14:00 Gurdeep FreemanmelodieJennifer [facility] BASIC METABOLIC PANEL (7) 2019-11-08 04:14:00 Lydia CherylHany [facility] REPORT OF PROCEDURE - 2019-11-07 12:17:[address] [facility] TISSUE EXAM 2019-11-07 11:22:00 Wojciech Rincon [facility] UPPER ENDOSCOPY,FNA 2019-11-07 10:00:00 Wojciech Rincon [facility] UPPER ENDOSCOPY,BIOPSY 2019-11-07 10:00:00 Wojciech Rincon [facility] CBC (HEMOGRAM ONLY) 2019-11-07 04:27:00 Anabel Freeman [facility] BASIC METABOLIC PANEL (7) 2019-11-07 04:27:00 Anabel Freeman [facility] HEPATIC FUNCTION PANEL 2019-11-07 04:27:00 Anabel Freeman [facility] BASIC METABOLIC PANEL (7) 2019-11-06 16:49:00 [facility] SODIUM, RANDOM URINE 2019-11-06 11:29:00 Triozzi, [facility] POTASSIUM, RANDOM URINE 2019-11-06 11:29:00 Trionayei, [facility] CHLORIDE, RANDOM URINE 2019-11-06 11:29:00 Triozzi, [facility] UREA NITROGEN, RANDOM 2019-11-06 11:29:00 [facility] CREATININE, RANDOM URINE 2019-11-06 11:29:00 [facility] LACTATE DEHYDROGENASE 2019-11-06 04:35:00 Luis Armando Verde [facility] BASIC METABOLIC PANEL (7) 2019-11-06 04:35:00 Anabel Freeman [facility] HAPTOGLOBIN 2019-11-06 04:35:00 Luis Armando Verde [facility] POTASSIUM-STAT LAB 2019-11-05 12:29:00 Pallavi Marc [facility] URINALYSIS WITH 2019-11-05 08:20:[address] [facility] INDICATED [facility] SODIUM, RANDOM URINE 2019-11-05 08:20:00 Triozzi, [facility] POTASSIUM, RANDOM URINE 2019-11-05 08:20:00 Triozzi, [facility] CHLORIDE, RANDOM URINE 2019-11-05 08:20:00 Triozzi, [facility] UREA NITROGEN, RANDOM 2019-11-05 08:20:00 Triozzi, [facility] CREATININE, RANDOM URINE 2019-11-05 08:20:00 Triozzi, [facility] BASIC METABOLIC PANEL (7) 2019-11-05 04:09:00 Anabel Freeman [facility], [facility] PANCREATIC ELASTASE, 2019-11-05 02:11:00 Luis Enrique Gonzales [facility] POCT-GLUCOSE METER 2019-11-04 23:35:00 Anabel Freeman [facility] BASIC METABOLIC PANEL (7) 2019-11-04 21:37:00 Triozzi, [facility] POTASSIUM 2019-11-04 14:59:00 Triozz, [facility] ACTH STIMULATION 2019-11-04 10:55:00 Anabel Freeman [facility] CORTISOL,60 MIN 2019-11-04 10:55:00 Anabel Freeman [facility] CORTISOL 2019-11-04 10:35:00 Triozzi, [facility] ACTH 2019-11-04 10:35:00 Triozzi, [facility] CORTISOL 2019-11-04 09:49:00 Triozzi, [facility] ACTH 2019-11-04 09:49:00 Triozz, [facility] BASIC METABOLIC PANEL (7) 2019-11-04 09:02:[address] [facility], [facility] POTASSIUM-STAT LAB 2019-11-04 09:02:00 [facility]IC [facility]ABOLIC PANEL (7) 2019-11-04 05:52:00 Anabel Freeman [facility] CORTISOL 2019-11-04 05:52:00 Triozzi, [facility] POCT-GLUCOSE METER 2019-11-04 02:12:00 Anabel Freeman [facility] ECG 12-LEAD 2019-11-04 01:36:45 Unknown, Hl7 [facility] POTASSIUM 2019-11-03 23:35:[address] [facility], [facility] URINALYSIS WITH 2019-11-03 17:17:[address] [facility], [facility] - MICROSCOPIC IF INDICATED [facility] OSMOLALITY, URINE 2019-11-03 17:16:[address] [facility], [facility] OSMOLALITY, SERUM 2019-11-03 16:25:[address] [facility], [facility] RENIN, PLASMA 2019-11-03 16:25:[address] [facility], [facility] ALDOSTERONE 2019-11-03 16:25:[address] [facility], [facility] POTASSIUM-STAT LAB 2019-11-03 12:44:00 Pallavi Marc [facility] SODIUM, RANDOM URINE 2019-11-03 11:39:00 [facility] POTASSIUM, RANDOM URINE 2019-11-03 11:39:[address] [facility] CHLORIDE, RANDOM URINE 2019-11-03 11:39:00 [facility] UREA NITROGEN, RANDOM 2019-11-03 11:39:00 [facility] CREATININE, RANDOM URINE 2019-11-03 11:39:00 [facility] LACTIC ACID, VENOUS 2019-11-03 11:07:00 [facility] POTASSIUM 2019-11-03 11:07:00 Pallavi Marc [facility] BASIC METABOLIC PANEL (7) 2019-11-03 07:34:[address] [facility] CREATINE KINASE (CK) 2019-11-03 07:34:00 Pallavi Marc [facility] ECG 12-LEAD 2019-11-03 06:37:09 Obdulia Patino [facility] ECG 12-LEAD 2019-11-03 06:36:55 Unknown, Hl7 [facility] BASIC METABOLIC PANEL (7) 2019-11-03 04:54:00 [facility] CALCIUM, IONIZED 2019-11-03 04:54:00 [facility] PHOSPHORUS 2019-11-03 04:54:00 [facility] MAGNESIUM 2019-11-03 04:54:00 Casey [facility] CBC W/PLT COUNT & AUTO 2019-11-03 04:54:00 Clovis Rangel [facility] ECG 12-LEAD 2019-11-02 18:35:09 Unknown, Hl7 [facility] BASIC METABOLIC PANEL (7) 2019-11-02 17:48:00 [facility] POCT-GLUCOSE METER 2019-11-02 14:54:00 Casey [facility] BASIC METABOLIC PANEL (7) 2019-11-02 12:25:00 [facility] COMPREHENSIVE METABOLIC 2019-11-02 06:24:[address] [facility] CALCIUM, IONIZED 2019-11-02 04:27:00 [facility] PHOSPHORUS 2019-11-02 04:27:00 [facility] MAGNESIUM 2019-11-02 04:27:00 Casey [facility] CBC W/PLT COUNT & AUTO 2019-11-02 04:27:00 Clovis Rangel [facility] MR ABDOMEN WITH & WITHOUT 2019-11-01 14:40:00 Erin Gonzales [facility] COMPREHENSIVE METABOLIC 2019-11-01 04:51:[address] [facility] CALCIUM, IONIZED 2019-11-01 04:51:00 Clovis Rangel [facility] PHOSPHORUS 2019-11-01 04:51:00 Clovis Rangel [facility] MAGNESIUM 2019-11-01 04:51:00 Clovis Rangel [facility] CBC W/PLT COUNT & AUTO 2019-11-01 04:51:00 Clovis Rangel [facility] TRANSFUSION SERVICE 2019-10-31 18:02:43 Provider [facility] REPORT - SCAN [facility] VITAMIN B12 AND FOLATE 2019-10-31 04:20:00 Clovis Rangel [facility] HEMOGLOBIN A1C 2019-10-31 04:20:00 [facility]IP[facility]EL 2019-10-31 04:20:00 Clovis Rangel [facility] MAGNESIUM 2019-10-31 04:20:00 [facility] PHOSPHORUS 2019-10-31 04:20:00 Clovis Rangel [facility] CALCIUM, IONIZED 2019-10-31 04:20:00 Clovis Rangel [facility] COMPREHENSIVE METABOLIC 2019-10-31 04:20:[address] [facility] LACTIC ACID, VENOUS 2019-10-31 04:20:00 Clovis Rangel [facility] CBC W/PLT COUNT & AUTO 2019-10-31 04:20:00 Clovis Rangel [facility] LACTIC ACID, VENOUS 2019-10-30 16:55:00 [facility] PROCALCITONIN 2019-10-30 16:55:00 [facility] LACTIC ACID, VENOUS 2019-10-30 14:40:00 [facility] 2019-10-30 14:40:00 [facility] 2019-10-30 13:49:00 [facility] PELVIS 2019-10-30 11:50:00 [facility] TROPONIN I 2019-10-30 10:14:00 [facility] PT/APTT 2019-10-30 10:14:00 [facility] LACT[facility] ACID, VENOUS 2019-10-30 10:14:00 [facility] BASIC METABOLIC PANEL (7) 2019-10-30 10:14:00 [facility] HEPATIC FUNCTION PANEL 2019-10-30 10:14:00 Shinthi, [facility] LIPASE 2019-10-30 10:14:00 [facility] TYPE AND SCREEN, 2019-10-30 10:14:00 Shinthi, [facility] CBC W/PLT COUNT & AUTO 2019-10-30 10:14:00 [facility] ECG 12-LEAD 2019-10-30 09:38:59 Unknown, Hl7 [facility] BASIC METABOLIC PANEL (7) 2019-10-24 04:22:00 [facility] W/[facility]T [facility] & AUTO 2019-10-24 04:22:00 [facility] BASIC METABOLIC PANEL (7) 2019-10-23 03:39:00 [facility] CBC W/PLT COUNT & AUTO 2019-10-23 03:39:00 [facility] BASIC METABOLIC PANEL (7) 2019-10-22 03:26:00 [facility]la [facility] CBC W/PLT COUNT & AUTO 2019-10-22 03:26:00 [facility] [facility] POCT-GLUCOSE METER 2019-10-21 20:50:00 [facility] CT ABDOMEN/PELVIS WITH IV 2019-10-21 15:56:00 Juan Naidu [facility] CONTRAST [facility] LIPASE 2019-10-21 14:07:00 NaiduHansJuan Duglas [facility] BASIC METABOLIC PANEL (7) 2019-10-21 14:07:00 Morovis [place] Duglas [facility] HEPATIC FUNCTION PANEL 2019-10-21 14:07:00 MorovisJuan [facility] URINALYSIS W/ REFLEX 2019-10-21 14:07:00 MorovisHansJuan Duglas [facility] URINE CULTURE [facility] LACTIC ACID, VENOUS 2019-10-21 14:07:00 Juan Naidu [facility] CBC W/PLT COUNT & AUTO 2019-10-21 14:07:00 NaiduJuan sandoval [facility] RAPID DRUG SCREEN, URINE 2019-10-21 14:03:00 Liza Carlin [facility] Results Test Description Test Time Test Comments Results Result Comments Source SARS-CoV2/RT-PCR (Asymptomatic ONLY) 2020-03-19 10:47:00 Test Item Value Reference Range Interpretation Comme nts SARS-COV2/RT-PCR (test code = Negative Not Detected, 45232-6) Negative, See external report for linked test SARS-COV-2 PERFORMING LAB [facility] (test code = 68968-8) RADHA (test code = RADHA) Negative result for this test determines that SARS-CoV-2 RNA was not present in the specimen above the Limit of Detection (LOD). However, Negative results do not preclude SARS-CoV-2 infection and should not be used as the sole basis for treatment or patient management decisions. Negative results must be combined with clinical observations, patient history, and epidemiological information. A false negative result may occur if a specimen is improperly collected, transported or handled. A false negative result should be considered if patient's recent exposures or clinical presentation indicate that COVID-19 (SARS-CoV-2) is likely and diagnostic tests for other causes of illness are negative. Re-testing should be considered in cases of suspected [...] Food and Drug Administration (FDA) cleared or approved. This is a modified version of an approved [...] of the Act. Fact Sheet for Healthcare Providers:https://www.[employer] PúbliKo/sites/default/files/produ ct/documents/Fact_Sheet_HC_Pr saturuk_Fxed_DHEA-VkS-7.pdf Fact Sheet for Healthcare Patients:https://www.[employer]Sevence om/sites/default/files/produc t/documents/Fact_Sheet_Patien yn_Hrsj_LYLD-EsL-5.pdf Performing Laboratory:[facility], [place] [address] [place], [place] [address]ARS-COV2/RT-PCR ([facility])2020-03-19 10:47:00 Test Item Value Reference Range Interpretation Comments SARS-COV2/RT-PCR (test Negative Not Detected, Negative, code = 9792391) See external report for linked test SARS-COV-2 PERFORMING LAB [facility] (test code = 0632492) Negative result for this test determines that SARS-CoV-2 RNA was not present in the specimen above the Limit of Detection (LOD). However, Negative results do not preclude SARS-CoV-2 infection and should not be used as the sole basis for treatment or patient management decisions. Negative results mustbe combined with clinical observations, patient history, and epidemiological information. A false negative result may occur if a specimen is improperly collected, transported or handled. A false negative result should be considered if patient's recent exposures or clinical presentation indicate that COVID-19 (SARS-CoV-2) is likely and diagnostic tests for other causes of illness are negative. Re-testing should be considered in cases of suspected false negatives.The limit of detection for this assay is 800 copies/mL.This SARS CoV-2 test is a real-time RT-PCR test intended for the qualitative detection of nucleic acid from SARS-CoV-2 in a nasopharyngeal swab specimen collected from individuals suspected of COVID-19 by their healthcare provider.This test has not been Food and Drug Administration (FDA) cleared or approved. This is a modified version of an approved [...] is revoked under Section 564(g) of the Act.Fact Sheet for Healthcare Providers:https://www.[employer]PúbliKo/sites/default/files/product/documents/Fact_Shee l_IV_Rtjxmgxpv_Ezey_STDH-RzY-8.pdfFact Sheet for Healthcare Patients:https://www.[employer]PúbliKo/sites/default/files/product/ documents/Nzhd_Vhvpt_Fbtflnbh_Ebph_SBDR-KgF-5.pdfPerforming Laboratory:[facility], [place] [id number] 09:21:00 Test Item Value Reference Range Interpretation Comments Potassium (test code = 5.7 meq/L 3.5-5.1 H 2823-3) RADHA (test code = RADHA) [employer] Adjuster ID - PIAYA L Lab Interpretation (test Abnormal code = 73409-1) [facility] 09:21:00 Test Item Value Reference Range Interpretation Comments POTASSIUM (BEAKER) (test code = 5.7 meq/L 3.5-5.1 H 379) [employer] Adjuster ID - PIAYA LComprehensive metabolic [id number] 06:41:00 Test Item Value Reference Range Interpretation Comments Protein, Total (test 7.1 6.0- 8.3 gm/dL code = 2885-2) Albumin (test code = 4.1 g/dL 3.5-5 40935-3) Alkaline Phosphatase 120 U/L 40-150 (test code = 6768-6) Total Bilirubin (test 0.2 mg/dL 0.2-1.2 code = 1975-2) Sodium (test code = 138 meq/L 591-512 3151-2) Potassium (test code = 6.1 meq/L 3.5-5.1 HH 2823-3) Chloride (test code = 108 meq/L 98-107 H 2075-0) CO2 (test code = 24 meq/L 22-29 2028-9) BUN (test code = 10 mg/dL 7-21 3094-0) Creatinine (test code 0.64 mg/dL 0.57-1.25 = 2160-0) Glucose (test code = 91 mg/dL 70-105 2345-7) Calcium (test code = 9.3 mg/dL 8.4-10.2 62802-8) AST (test code = 24 U/L 5-34 1920-8) ALT (test code = 59 U/L 6-55 H 1742-6) EGFR (test code = 144 mL/min/1.73 [place] [address]-6) NOT ACCURATE CREATININE CLEARANCE IN PREDICTING GLOMERULAR FILTRATION RATE . ESTIMATED GFR I S NOT APPLICABLE FOR DIALYSIS PATIENTS. RADHA (test code = RADHA) [employer] Adjuster ID - EDASI Lab Interpretation Abnormal (test code = 19588-0) [facility] [id number] 06:41:00 Test Item Value Reference Range Interpretation Comments TOTAL PROTEIN 7.1 gm/dL 6.0-8.3 (BEAKER) (test code = 770) ALBUMIN (BEAKER) 4.1 g/dL 3.5-5.0 (test code = 1145) ALKALINE PHOSPHATASE 120 U/L 40-150 (BEAKER) (test code = 346) BILIRUBIN TOTAL 0.2 mg/dL 0.2-1.2 (BEAKER) (test code = 377) SODIUM (BEAKER) (test 138 meq/L 136-145 code = 381) POTASSIUM (BEAKER) 6.1 meq/L 3.5-5.1 HH (test code = 379) CHLORIDE (BEAKER) 108 meq/L 98-107 H (test code = 382) CO2 (BEAKER) (test 24 meq/L 22-29 code = 355) BLOOD UREA NITROGEN 10 mg/dL 7-21 (BEAKER) (test code = 354) CREATININE (BEAKER) 0.64 mg/dL 0.57-1.25 (test code = 358) GLUCOSE RANDOM 91 mg/dL 70-105 (BEAKER) (test code = 652) CALCIUM (BEAKER) 9.3 mg/dL 8.4-10.2 (test code = 697) AST (SGOT) (BEAKER) 24 U/L 5-34 (test code = 353) ALT (SGPT) (BEAKER) 59 U/L 6-55 H (test code = 347) EGFR (BEAKER) (test 144 ESTIMATE D GFR IS code = 1092) mL/min/1.73 sq NOT ACCURA TE m CREATININE CLEARANCE IN PREDICTING GLOMERULAR FILTRATION RATE . ESTIMATED GFR I S NOT APPLICABLE FOR DIALYSIS PATIEN TS. [employer] Adjuster ID - [id number] 06:32:00 Test Item Value Reference Range Interpretation Comments Magnesium (test code = 1.7 mg/dL 1.6-2.6 15877-1) RADHA (test code = RADHA) [employer] Adjuster ID - EDASI Lab Interpretation (test Normal code = 95798-0) [facility]2020-[facility] 06:32:00 Test Item Value Reference Range Interpretation Comments Phosphorus (test code = 3.6 mg/dL 2.3-4.7 2777-1) RADHA (test code = RADHA) [employer] Adjuster ID - EDASI Lab Interpretation (test Normal code = 23059-7) [facility]US2020-09-04 06:32:00 Test Item Value Reference Range Interpretation Comments PHOSPHORUS (BEAKER) (test code = 3.6 mg/dL 2.3-4.7 604) [employer] Adjuster ID - [id number] 06:32:00 Test Item Value Reference Range Interpretation Comments MAGNESIUM (BEAKER) (test code = 1.7 mg/dL 1.6-2.6 627) [employer] Adjuster ID - EDASICBC with platelet count + automated [id number] 05:58:00 Test Item Value Reference Range Interpretation Comments WBC (test code = 6690-2) 5.7 3.5- 10.5 K/L RBC (test code = 789-8) 3.52 4.63- 6.08 M/L L MCHC (test code = 786-4) 30.9 32.3- 36.5 GM/DL L Hematocrit (test code = 4544-3) 34.0 % 40.1-51 L MCV (test code = 787-2) 96.6 fL 79-92.2 H MCH (test code = 785-6) 29.8 pg 25.7-32.2 RDW (test code = 788-0) 13.9 % 11.6-14.4 Platelets (test code = 777-3) 159 150- 450 K/CU MM MPV (test code = 38956-0) 10.4 fL 9.4-12.4 nRBC (test code = 413) 0 0- 0 /100 WBC % Neutros (test code = 429) 52 % % Lymphs (test code = 430) 33 % % Monos (test code = 431) 8 % % Eos (test code = 432) 3 % % Baso (test code = 437) 1 % # Neutros (test code = 670) 2.95 1.78- 5.38 K/L # Lymphs (test code = 414) 1.86 1.32- 3.57 K/L # Monos (test code = 415) 0.46 0.30- 0.82 K/L # Eos (test code = 416) 0.17 0.04- 0.54 K/L # Baso (test code = 417) 0.06 0.01- 0.08 K/L Immature Granulocytes-Relative 3 % 0-1 H (test code = 2801) Lab Interpretation (test code = Abnormal 08745-7) [facility]T [facility] & AUTO [id number] 05:58:00 Test Item Value Reference Range Interpretation Comments WHITE BLOOD CELL COUNT (BEAKER) 5.7 K/ L 3.5-10.5 (test code = 775) RED BLOOD CELL COUNT (BEAKER) 3.52 M/ L 4.63-6.08 L (test code = 761) HEMOGLOBIN (BEAKER) (test code = 10.5 GM/DL 13.7-17.5 L 410) HEMATOCRIT (BEAKER) (test code = 34.0 % 40.1-51.0 L 411) MEAN CORPUSCULAR VOLUME (BEAKER) 96.6 fL 79.0-92.2 H (test code = 753) MEAN CORPUSCULAR HEMOGLOBIN 29.8 pg 25.7-32.2 (BEAKER) (test code = 751) MEAN CORPUSCULAR HEMOGLOBIN CONC 30.9 GM/DL 32.3-36.5 L (BEAKER) (test code = 752) RED CELL DISTRIBUTION WIDTH 13.9 % 11.6-14.4 (BEAKER) (test code = 412) PLATELET COUNT (BEAKER) (test 159 K/CU MM 150-450 code = 756) MEAN PLATELET VOLUME (BEAKER) 10.4 fL 9.4-12.4 (test code = 754) NUCLEATED RED BLOOD CELLS 0 /100 WBC 0-0 (BEAKER) (test code = 413) NEUTROPHILS RELATIVE PERCENT 52 % (BEAKER) (test code = 429) LYMPHOCYTES RELATIVE PERCENT 33 % (BEAKER) (test code = 430) MONOCYTES RELATIVE PERCENT 8 % (BEAKER) (test code = 431) EOSINOPHILS RELATIVE PERCENT 3 % (BEAKER) (test code = 432) BASOPHILS RELATIVE PERCENT 1 % (BEAKER) (test code = 437) NEUTROPHILS ABSOLUTE COUNT 2.95 K/ L 1.78-5.38 (BEAKER) (test code = 670) LYMPHOCYTES ABSOLUTE COUNT 1.86 K/ L 1.32-3.57 (BEAKER) (test code = 414) MONOCYTES ABSOLUTE COUNT (BEAKER) 0.46 K/ L 0.30-0.82 (test code = 415) EOSINOPHILS ABSOLUTE COUNT 0.17 K/ L 0.04-0.54 (BEAKER) (test code = 416) BASOPHILS ABSOLUTE COUNT (BEAKER) 0.06 K/ L 0.01-0.08 (test code = 417) IMMATURE GRANULOCYTES-RELATIVE 3 % 0-1 H PERCENT (BEAKER) (test code = 2801) COMPREHENSIVE METABOLIC [id number] 07:35:00 Test Item Value Reference Range Interpretation Comments TOTAL PROTEIN 7.4 gm/dL 6.0-8.3 Specimen sligh tly (BEAKER) (test code = hemoly zed 770) ALBUMIN (BEAKER) 4.2 g/dL 3.5-5.0 Specimen sl ightly (test code = 1145) hemolyzed ALKALINE PHOSPHATASE 134 U/L 40-150 (BEAKER) (test code = 346) BILIRUBIN TOTAL 0.2 mg/dL 0.2-1.2 Specimen sli ghtly (BEAKER) (test code = hemoly zed 377) SODIUM (BEAKER) (test 140 meq/L 136-145 code = 381) POTASSIUM (BEAKER) 5.2 meq/L 3.5-5.1 H Specimen slightly (test code = 379) hemolyzed CHLORIDE (BEAKER) 112 meq/L 98-107 H (test code = 382) CO2 (BEAKER) (test 23 meq/L 22-29 code = 355) BLOOD UREA NITROGEN 10 mg/dL 7-21 (BEAKER) (test code = 354) CREATININE (BEAKER) 0.65 mg/dL 0.57-1.25 Specimen slightly (test code = 358) hemolyzed GLUCOSE RANDOM 102 mg/dL 70-105 (BEAKER) (test code = 652) CALCIUM (BEAKER) 9.4 mg/dL 8.4-10.2 (test code = 697) AST (SGOT) (BEAKER) 36 U/L 5-34 H Specimen slightly (test code = 353) hemolyzed ALT (SGPT) (BEAKER) 75 U/L 6-55 H Specimen slightly (test code = 347) hemolyzed EGFR (BEAKER) (test 141 ESTIMATE D GFR IS code = 1092) mL/min/1.73 sq NOT ACCURA TE m CREATININE CLEARANCE IN PREDICTING GLOMERULAR FILTRATION RATE . ESTIMATED GFR I S NOT APPLICABLE FOR DIALYSIS PATIEN TS. [employer] Adjuster ID - [id number] 04:38:00 Test Item Value Reference Range Interpretation Comments PHOSPHORUS (BEAKER) (test code = 2.8 mg/dL 2.3-4.7 604) [employer] Adjuster ID - [id number] 04:38:00 Test Item Value Reference Range Interpretation Comments MAGNESIUM (BEAKER) (test code = 1.8 mg/dL 1.6-2.6 627) [employer] Adjuster ID - LACBC W/PLT COUNT & AUTO [id number] 04:12:00 Test Item Value Reference Range Interpretation Comments WHITE BLOOD CELL COUNT (BEAKER) 6.3 K/ L 3.5-10.5 (test code = 775) RED BLOOD CELL COUNT (BEAKER) 4.04 M/ L 4.63-6.08 L (test code = 761) HEMOGLOBIN (BEAKER) (test code = 11.4 GM/DL 13.7-17.5 L 410) HEMATOCRIT (BEAKER) (test code = 38.4 % 40.1-51.0 L 411) MEAN CORPUSCULAR VOLUME (BEAKER) 95.0 fL 79.0-92.2 H (test code = 753) MEAN CORPUSCULAR HEMOGLOBIN 28.2 pg 25.7-32.2 (BEAKER) (test code = 751) MEAN CORPUSCULAR HEMOGLOBIN CONC 29.7 GM/DL 32.3-36.5 L (BEAKER) (test code = 752) RED CELL DISTRIBUTION WIDTH 14.1 % 11.6-14.4 (BEAKER) (test code = 412) PLATELET COUNT (BEAKER) (test 192 K/CU MM 150-450 code = 756) MEAN PLATELET VOLUME (BEAKER) 10.4 fL 9.4-12.4 (test code = 754) NUCLEATED RED BLOOD CELLS 0 /100 WBC 0-0 (BEAKER) (test code = 413) NEUTROPHILS RELATIVE PERCENT 52 % (BEAKER) (test code = 429) LYMPHOCYTES RELATIVE PERCENT 30 % (BEAKER) (test code = 430) MONOCYTES RELATIVE PERCENT 9 % (BEAKER) (test code = 431) EOSINOPHILS RELATIVE PERCENT 6 % (BEAKER) (test code = 432) BASOPHILS RELATIVE PERCENT 1 % (BEAKER) (test code = 437) NEUTROPHILS ABSOLUTE COUNT 3.25 K/ L 1.78-5.38 (BEAKER) (test code = 670) LYMPHOCYTES ABSOLUTE COUNT 1.86 K/ L 1.32-3.57 (BEAKER) (test code = 414) MONOCYTES ABSOLUTE COUNT (BEAKER) 0.59 K/ L 0.30-0.82 (test code = 415) EOSINOPHILS ABSOLUTE COUNT 0.38 K/ L 0.04-0.54 (BEAKER) (test code = 416) BASOPHILS ABSOLUTE COUNT (BEAKER) 0.06 K/ L 0.01-0.08 (test code = 417) IMMATURE GRANULOCYTES-RELATIVE 2 % 0-1 H PERCENT (BEAKER) (test code = 2801) [id number] 07:10:00 Test Item Value Reference Range Interpretation Comments PHOSPHORUS (BEAKER) (test code = 5.1 mg/dL 2.3-4.7 H 604) [employer] Adjuster ID - [id number] 07:10:00 Test Item Value Reference Range Interpretation Comments MAGNESIUM (BEAKER) (test code = 1.9 mg/dL 1.6-2.6 627) [employer] Adjuster ID - NTPCOMPREHENSIVE METABOLIC [id number] 07:10:00 Test Item Value Reference Range Interpretation Comments TOTAL PROTEIN 7.6 gm/dL 6.0-8.3 (BEAKER) (test code = 770) ALBUMIN (BEAKER) 4.4 g/dL 3.5-5.0 (test code = 1145) ALKALINE PHOSPHATASE 147 U/L 40-150 (BEAKER) (test code = 346) BILIRUBIN TOTAL 0.2 mg/dL 0.2-1.2 (BEAKER) (test code = 377) SODIUM (BEAKER) (test 140 meq/L 136-145 code = 381) POTASSIUM (BEAKER) 4.5 meq/L 3.5-5.1 (test code = 379) CHLORIDE (BEAKER) 106 meq/L 98-107 (test code = 382) CO2 (BEAKER) (test 24 meq/L 22-29 code = 355) BLOOD UREA NITROGEN 11 mg/dL 7-21 (BEAKER) (test code = 354) CREATININE (BEAKER) 0.70 mg/dL 0.57-1.25 (test code = 358) GLUCOSE RANDOM 110 mg/dL 70-105 H (BEAKER) (test code = 652) CALCIUM (BEAKER) 9.6 mg/dL 8.4-10.2 (test code = 697) AST (SGOT) (BEAKER) 29 U/L 5-34 (test code = 353) ALT (SGPT) (BEAKER) 75 U/L 6-55 H (test code = 347) EGFR (BEAKER) (test 130 ESTIMATE D GFR IS code = 1092) mL/min/1.73 sq NOT ACCURA TE m CREATININE CLEARANCE IN PREDICTING GLOMERULAR FILTRATION RATE . ESTIMATED GFR I S NOT APPLICABLE FOR DIALYSIS PATIEN TS. [employer] Unit Adjuster ID - NTPCBC W/PLT COUNT & AUTO [id number] 06:46:00 Test Item Value Reference Range Interpretation Comments WHITE BLOOD CELL COUNT (BEAKER) 6.9 K/ L 3.5-10.5 (test code = 775) RED BLOOD CELL COUNT (BEAKER) 4.41 M/ L 4.63-6.08 L (test code = 761) HEMOGLOBIN (BEAKER) (test code = 12.8 GM/DL 13.7-17.5 L 410) HEMATOCRIT (BEAKER) (test code = 41.2 % 40.1-51.0 411) MEAN CORPUSCULAR VOLUME (BEAKER) 93.4 fL 79.0-92.2 H (test code = 753) MEAN CORPUSCULAR HEMOGLOBIN 29.0 pg 25.7-32.2 (BEAKER) (test code = 751) MEAN CORPUSCULAR HEMOGLOBIN CONC 31.1 GM/DL 32.3-36.5 L (BEAKER) (test code = 752) RED CELL DISTRIBUTION WIDTH 14.2 % 11.6-14.4 (BEAKER) (test code = 412) PLATELET COUNT (BEAKER) (test 207 K/CU MM 150-450 code = 756) MEAN PLATELET VOLUME (BEAKER) 10.8 fL 9.4-12.4 (test code = 754) NUCLEATED RED BLOOD CELLS 0 /100 WBC 0-0 (BEAKER) (test code = 413) NEUTROPHILS RELATIVE PERCENT 49 % (BEAKER) (test code = 429) LYMPHOCYTES RELATIVE PERCENT 30 % (BEAKER) (test code = 430) MONOCYTES RELATIVE PERCENT 9 % (BEAKER) (test code = 431) EOSINOPHILS RELATIVE PERCENT 9 % (BEAKER) (test code = 432) BASOPHILS RELATIVE PERCENT 1 % (BEAKER) (test code = 437) NEUTROPHILS ABSOLUTE COUNT 3.43 K/ L 1.78-5.38 (BEAKER) (test code = 670) LYMPHOCYTES ABSOLUTE COUNT 2.06 K/ L 1.32-3.57 (BEAKER) (test code = 414) MONOCYTES ABSOLUTE COUNT (BEAKER) 0.62 K/ L 0.30-0.82 (test code = 415) EOSINOPHILS ABSOLUTE COUNT 0.63 K/ L 0.04-0.54 H (BEAKER) (test code = 416) BASOPHILS ABSOLUTE COUNT (BEAKER) 0.07 K/ L 0.01-0.08 (test code = 417) IMMATURE GRANULOCYTES-RELATIVE 2 % 0-1 H PERCENT (BEAKER) (test code = 2801) CBC W/PLT COUNT & AUTO [id number] 06:52:00 Test Item Value Reference Range Interpretation Comments WHITE BLOOD CELL COUNT (BEAKER) 5.4 K/ L 3.5-10.5 (test code = 775) RED BLOOD CELL COUNT (BEAKER) 4.05 M/ L 4.63-6.08 L (test code = 761) HEMOGLOBIN (BEAKER) (test code = 11.9 GM/DL 13.7-17.5 L 410) HEMATOCRIT (BEAKER) (test code = 37.7 % 40.1-51.0 L 411) MEAN CORPUSCULAR VOLUME (BEAKER) 93.1 fL 79.0-92.2 H (test code = 753) MEAN CORPUSCULAR HEMOGLOBIN 29.4 pg 25.7-32.2 (BEAKER) (test code = 751) MEAN CORPUSCULAR HEMOGLOBIN CONC 31.6 GM/DL 32.3-36.5 L (BEAKER) (test code = 752) RED CELL DISTRIBUTION WIDTH 14.1 % 11.6-14.4 (BEAKER) (test code = 412) PLATELET COUNT (BEAKER) (test 164 K/CU MM 150-450 code = 756) MEAN PLATELET VOLUME (BEAKER) 11.0 fL 9.4-12.4 (test code = 754) NUCLEATED RED BLOOD CELLS 0 /100 WBC 0-0 (BEAKER) (test code = 413) NEUTROPHILS RELATIVE PERCENT 54 % (BEAKER) (test code = 429) LYMPHOCYTES RELATIVE PERCENT 27 % (BEAKER) (test code = 430) MONOCYTES RELATIVE PERCENT 10 % (BEAKER) (test code = 431) EOSINOPHILS RELATIVE PERCENT 8 % (BEAKER) (test code = 432) BASOPHILS RELATIVE PERCENT 1 % (BEAKER) (test code = 437) NEUTROPHILS ABSOLUTE COUNT 2.86 K/ L 1.78-5.38 (BEAKER) (test code = 670) LYMPHOCYTES ABSOLUTE COUNT 1.42 K/ L 1.32-3.57 (BEAKER) (test code = 414) MONOCYTES ABSOLUTE COUNT (BEAKER) 0.55 K/ L 0.30-0.82 (test code = 415) EOSINOPHILS ABSOLUTE COUNT 0.40 K/ L 0.04-0.54 (BEAKER) (test code = 416) BASOPHILS ABSOLUTE COUNT (BEAKER) 0.04 K/ L 0.01-0.08 (test code = 417) IMMATURE GRANULOCYTES-RELATIVE 2 % 0-1 H PERCENT (BEAKER) (test code = 2801) [id number] 06:33:00 Test Item Value Reference Range Interpretation Comments PHOSPHORUS (BEAKER) (test code = 4.0 mg/dL 2.3-4.7 604) [employer] Adjuster ID - [id number] 06:33:00 Test Item Value Reference Range Interpretation Comments MAGNESIUM (BEAKER) (test code = 1.7 mg/dL 1.6-2.6 627) [employer] Adjuster ID - EDASICOMPREHENSIVE METABOLIC [id number] 06:33:00 Test Item Value Reference Range Interpretation Comments TOTAL PROTEIN 7.2 gm/dL 6.0-8.3 (BEAKER) (test code = 770) ALBUMIN (BEAKER) 4.1 g/dL 3.5-5.0 (test code = 1145) ALKALINE PHOSPHATASE 145 U/L 40-150 (BEAKER) (test code = 346) BILIRUBIN TOTAL 0.2 mg/dL 0.2-1.2 (BEAKER) (test code = 377) SODIUM (BEAKER) (test 140 meq/L 136-145 code = 381) POTASSIUM (BEAKER) 5.1 meq/L 3.5-5.1 (test code = 379) CHLORIDE (BEAKER) 109 meq/L 98-107 H (test code = 382) CO2 (BEAKER) (test 23 meq/L 22-29 code = 355) BLOOD UREA NITROGEN 10 mg/dL 7-21 (BEAKER) (test code = 354) CREATININE (BEAKER) 0.65 mg/dL 0.57-1.25 (test code = 358) GLUCOSE RANDOM 140 mg/dL 70-105 H (BEAKER) (test code = 652) CALCIUM (BEAKER) 9.4 mg/dL 8.4-10.2 (test code = 697) AST (SGOT) (BEAKER) 57 U/L 5-34 H (test code = 353) ALT (SGPT) (BEAKER) 89 U/L 6-55 H (test code = 347) EGFR (BEAKER) (test 141 ESTIMATE D GFR IS code = 1092) mL/min/1.73 sq NOT ACCURA TE m CREATININE CLEARANCE IN PREDICTING GLOMERULAR FILTRATION RATE . ESTIMATED GFR I S NOT APPLICABLE FOR DIALYSIS PATIEN TS. [employer] Adjuster ID - EDASICOMPREHENSIVE METABOLIC [id number] 11:15:00 Test Item Value Reference Range Interpretation Comments TOTAL PROTEIN 7.5 gm/dL 6.0-8.3 (BEAKER) (test code = 770) ALBUMIN (BEAKER) 4.3 g/dL 3.5-5.0 (test code = 1145) ALKALINE PHOSPHATASE 141 U/L 40-150 (BEAKER) (test code = 346) BILIRUBIN TOTAL 0.2 mg/dL 0.2-1.2 (BEAKER) (test code = 377) SODIUM (BEAKER) (test 136 meq/L 136-145 code = 381) POTASSIUM (BEAKER) 4.6 meq/L 3.5-5.1 (test code = 379) CHLORIDE (BEAKER) 105 meq/L 98-107 (test code = 382) CO2 (BEAKER) (test 26 meq/L 22-29 code = 355) BLOOD UREA NITROGEN 10 mg/dL 7-21 (BEAKER) (test code = 354) CREATININE (BEAKER) 0.67 mg/dL 0.57-1.25 (test code = 358) GLUCOSE RANDOM 88 mg/dL 70-105 (BEAKER) (test code = 652) CALCIUM (BEAKER) 9.3 mg/dL 8.4-10.2 (test code = 697) AST (SGOT) (BEAKER) 26 U/L 5-34 (test code = 353) ALT (SGPT) (BEAKER) 51 U/L 6-55 (test code = 347) EGFR (BEAKER) (test 137 ESTIMATE D GFR IS code = 1092) mL/min/1.73 sq NOT ACCURA TE m CREATININE CLEARANCE IN PREDICTING GLOMERULAR FILTRATION RATE . ESTIMATED GFR I S NOT APPLICABLE FOR DIALYSIS PATIEN TS. [employer] Adjuster ID - MATI CCBC W/PLT COUNT & AUTO [id number] 06:53:00 Test Item Value Reference Range Interpretation Comments WHITE BLOOD CELL COUNT 4.9 K/ L 3.5-10.5 (BEAKER) (test code = 775) RED BLOOD CELL COUNT 3.55 M/ L 4.63-6.08 L (BEAKER) (test code = 761) HEMOGLOBIN (BEAKER) 10.7 GM/DL 13.7-17.5 L (test code = 410) HEMATOCRIT (BEAKER) 35.7 % 40.1-51.0 L (test code = 411) MEAN CORPUSCULAR 100.6 fL 79.0-92.2 H Discordant MCV VOLUME (BEAKER) (test result s compared to code = 753) previous result s; clinical correl ation required. MEAN CORPUSCULAR 30.1 pg 25.7-32.2 HEMOGLOBIN (BEAKER) (test code = 751) MEAN CORPUSCULAR 30.0 GM/DL 32.3-36.5 L HEMOGLOBIN CONC (BEAKER) (test code = 752) RED CELL DISTRIBUTION 14.1 % 11.6-14.4 WIDTH (BEAKER) (test code = 412) PLATELET COUNT 138 K/CU MM 150-450 L (BEAKER) (test code = 756) MEAN PLATELET VOLUME 10.9 fL 9.4-12.4 (BEAKER) (test code = 754) NUCLEATED RED BLOOD 0 /100 WBC 0-0 CELLS (BEAKER) (test code = 413) NEUTROPHILS RELATIVE 51 % PERCENT (BEAKER) (test code = 429) LYMPHOCYTES RELATIVE 30 % PERCENT (BEAKER) (test code = 430) MONOCYTES RELATIVE 10 % PERCENT (BEAKER) (test code = 431) EOSINOPHILS RELATIVE 7 % PERCENT (BEAKER) (test code = 432) BASOPHILS RELATIVE 1 % PERCENT (BEAKER) (test code = 437) NEUTROPHILS ABSOLUTE 2.52 K/ L 1.78-5.38 COUNT (BEAKER) (test code = 670) LYMPHOCYTES ABSOLUTE 1.47 K/ L 1.32-3.57 COUNT (BEAKER) (test code = 414) MONOCYTES ABSOLUTE 0.51 K/ L 0.30-0.82 COUNT (BEAKER) (test code = 415) EOSINOPHILS ABSOLUTE 0.32 K/ L 0.04-0.54 COUNT (BEAKER) (test code = 416) BASOPHILS ABSOLUTE 0.05 K/ L 0.01-0.08 COUNT (BEAKER) (test code = 417) IMMATURE 1 % 0-1 GRANULOCYTES-RELATIVE PERCENT (BEAKER) (test code = 2801) [id number] 06:18:00 Test Item Value Reference Range Interpretation Comments MAGNESIUM (BEAKER) 2.1 mg/dL 1.6-2.6 Specimen slightly (test code = 627) hemolyzed [employer] Adjuster ID - IDALIA [id number] 06:18:00 Test Item Value Reference Range Interpretation Comments PHOSPHORUS (BEAKER) 3.0 mg/dL 2.3-4.7 Specimen slightly (test code = 604) hemolyzed [employer] Adjuster ID - IDALIA [id number] 04:52:00 Test Item Value Reference Range Interpretation Comments PHOSPHORUS (BEAKER) (test code = 4.4 mg/dL 2.3-4.7 604) [employer] Adjuster ID - PISAVANNAH [id number] 04:52:00 Test Item Value Reference Range Interpretation Comments MAGNESIUM (BEAKER) (test code = 1.9 mg/dL 1.6-2.6 627) [employer] Adjuster ID - IDALIA LCOMPREHENSIVE METABOLIC [id number] 04:52:00 Test Item Value Reference Range Interpretation Comments TOTAL PROTEIN 6.9 gm/dL 6.0-8.3 (BEAKER) (test code = 770) ALBUMIN (BEAKER) 4.0 g/dL 3.5-5.0 (test code = 1145) ALKALINE PHOSPHATASE 116 U/L 40-150 (BEAKER) (test code = 346) BILIRUBIN TOTAL 0.2 mg/dL 0.2-1.2 (BEAKER) (test code = 377) SODIUM (BEAKER) (test 140 meq/L 136-145 code = 381) POTASSIUM (BEAKER) 4.7 meq/L 3.5-5.1 (test code = 379) CHLORIDE (BEAKER) 111 meq/L 98-107 H (test code = 382) CO2 (BEAKER) (test 22 meq/L 22-29 code = 355) BLOOD UREA NITROGEN 9 mg/dL 7-21 (BEAKER) (test code = 354) CREATININE (BEAKER) 0.60 mg/dL 0.57-1.25 (test code = 358) GLUCOSE RANDOM 102 mg/dL 70-105 (BEAKER) (test code = 652) CALCIUM (BEAKER) 9.4 mg/dL 8.4-10.2 (test code = 697) AST (SGOT) (BEAKER) 24 U/L 5-34 (test code = 353) ALT (SGPT) (BEAKER) 41 U/L 6-55 (test code = 347) EGFR (BEAKER) (test 155 ESTIMATE D GFR IS code = 1092) mL/min/1.73 sq NOT ACCURA TE m CREATININE CLEARANCE IN PREDICTING GLOMERULAR FILTRATION RATE . ESTIMATED GFR I S NOT APPLICABLE FOR DIALYSIS PATIEN TS. [employer] Adjuster ID - PIAYA LCBC W/PLT COUNT & AUTO [id number] 04:23:00 Test Item Value Reference Range Interpretation Comments WHITE BLOOD CELL COUNT (BEAKER) 6.6 K/ L 3.5-10.5 (test code = 775) RED BLOOD CELL COUNT (BEAKER) 4.03 M/ L 4.63-6.08 L (test code = 761) HEMOGLOBIN (BEAKER) (test code = 11.8 GM/DL 13.7-17.5 L 410) HEMATOCRIT (BEAKER) (test code = 36.8 % 40.1-51.0 L 411) MEAN CORPUSCULAR VOLUME (BEAKER) 91.3 fL 79.0-92.2 (test code = 753) MEAN CORPUSCULAR HEMOGLOBIN 29.3 pg 25.7-32.2 (BEAKER) (test code = 751) MEAN CORPUSCULAR HEMOGLOBIN CONC 32.1 GM/DL 32.3-36.5 L (BEAKER) (test code = 752) RED CELL DISTRIBUTION WIDTH 14.3 % 11.6-14.4 (BEAKER) (test code = 412) PLATELET COUNT (BEAKER) (test 153 K/CU MM 150-450 code = 756) MEAN PLATELET VOLUME (BEAKER) 10.2 fL 9.4-12.4 (test code = 754) NUCLEATED RED BLOOD CELLS 0 /100 WBC 0-0 (BEAKER) (test code = 413) NEUTROPHILS RELATIVE PERCENT 62 % (BEAKER) (test code = 429) LYMPHOCYTES RELATIVE PERCENT 23 % (BEAKER) (test code = 430) MONOCYTES RELATIVE PERCENT 10 % (BEAKER) (test code = 431) EOSINOPHILS RELATIVE PERCENT 4 % (BEAKER) (test code = 432) BASOPHILS RELATIVE PERCENT 1 % (BEAKER) (test code = 437) NEUTROPHILS ABSOLUTE COUNT 4.09 K/ L 1.78-5.38 (BEAKER) (test code = 670) LYMPHOCYTES ABSOLUTE COUNT 1.52 K/ L 1.32-3.57 (BEAKER) (test code = 414) MONOCYTES ABSOLUTE COUNT (BEAKER) 0.66 K/ L 0.30-0.82 (test code = 415) EOSINOPHILS ABSOLUTE COUNT 0.28 K/ L 0.04-0.54 (BEAKER) (test code = 416) BASOPHILS ABSOLUTE COUNT (BEAKER) 0.03 K/ L 0.01-0.08 (test code = 417) IMMATURE GRANULOCYTES-RELATIVE 1 % 0-1 PERCENT (BEAKER) (test code = 2801) COMPREHENSIVE METABOLIC [id number] 09:16:00 Test Item Value Reference Range Interpretation Comments TOTAL PROTEIN 7.0 gm/dL 6.0-8.3 (BEAKER) (test code = 770) ALBUMIN (BEAKER) 4.0 g/dL 3.5-5.0 (test code = 1145) ALKALINE PHOSPHATASE 118 U/L 40-150 (BEAKER) (test code = 346) BILIRUBIN TOTAL 0.2 mg/dL 0.2-1.2 (BEAKER) (test code = 377) SODIUM (BEAKER) (test 139 meq/L 136-145 code = 381) POTASSIUM (BEAKER) 4.2 meq/L 3.5-5.1 (test code = 379) CHLORIDE (BEAKER) 108 meq/L 98-107 H (test code = 382) CO2 (BEAKER) (test 24 meq/L 22-29 code = 355) BLOOD UREA NITROGEN 8 mg/dL 7-21 (BEAKER) (test code = 354) CREATININE (BEAKER) 0.62 mg/dL 0.57-1.25 (test code = 358) GLUCOSE RANDOM 117 mg/dL 70-105 H (BEAKER) (test code = 652) CALCIUM (BEAKER) 9.4 mg/dL 8.4-10.2 (test code = 697) AST (SGOT) (BEAKER) 15 U/L 5-34 (test code = 353) ALT (SGPT) (BEAKER) 45 U/L 6-55 (test code = 347) EGFR (BEAKER) (test 149 ESTIMATE D GFR IS code = 1092) mL/min/1.73 sq NOT ACCURA TE m CREATININE CLEARANCE IN PREDICTING GLOMERULAR FILTRATION RATE . ESTIMATED GFR I S NOT APPLICABLE FOR DIALYSIS PATIEN TS. [employer] Adjuster ID - MATI [id number] 07:46:00 Test Item Value Reference Range Interpretation Comments MAGNESIUM (BEAKER) 2.2 mg/dL 1.6-2.6 Specimen slightly (test code = 627) hemolyzed [employer] Adjuster ID - MATI [id number] 07:46:00 Test Item Value Reference Range Interpretation Comments PHOSPHORUS (BEAKER) 3.3 mg/dL 2.3-4.7 Specimen slightly (test code = 604) hemolyzed [employer] Adjuster ID - MATI CCBC W/PLT COUNT & AUTO [id number] 07:09:00 Test Item Value Reference Range Interpretation Comments WHITE BLOOD CELL COUNT (BEAKER) 5.4 K/ L 3.5-10.5 (test code = 775) RED BLOOD CELL COUNT (BEAKER) 3.91 M/ L 4.63-6.08 L (test code = 761) HEMOGLOBIN (BEAKER) (test code = 11.6 GM/DL 13.7-17.5 L 410) HEMATOCRIT (BEAKER) (test code = 37.2 % 40.1-51.0 L 411) MEAN CORPUSCULAR VOLUME (BEAKER) 95.1 fL 79.0-92.2 H (test code = 753) MEAN CORPUSCULAR HEMOGLOBIN 29.7 pg 25.7-32.2 (BEAKER) (test code = 751) MEAN CORPUSCULAR HEMOGLOBIN CONC 31.2 GM/DL 32.3-36.5 L (BEAKER) (test code = 752) RED CELL DISTRIBUTION WIDTH 14.6 % 11.6-14.4 H (BEAKER) (test code = 412) PLATELET COUNT (BEAKER) (test 155 K/CU MM 150-450 code = 756) MEAN PLATELET VOLUME (BEAKER) 10.2 fL 9.4-12.4 (test code = 754) NUCLEATED RED BLOOD CELLS 0 /100 WBC 0-0 (BEAKER) (test code = 413) NEUTROPHILS RELATIVE PERCENT 57 % (BEAKER) (test code = 429) LYMPHOCYTES RELATIVE PERCENT 27 % (BEAKER) (test code = 430) MONOCYTES RELATIVE PERCENT 10 % (BEAKER) (test code = 431) EOSINOPHILS RELATIVE PERCENT 5 % (BEAKER) (test code = 432) BASOPHILS RELATIVE PERCENT 1 % (BEAKER) (test code = 437) NEUTROPHILS ABSOLUTE COUNT 3.06 K/ L 1.78-5.38 (BEAKER) (test code = 670) LYMPHOCYTES ABSOLUTE COUNT 1.43 K/ L 1.32-3.57 (BEAKER) (test code = 414) MONOCYTES ABSOLUTE COUNT (BEAKER) 0.53 K/ L 0.30-0.82 (test code = 415) EOSINOPHILS ABSOLUTE COUNT 0.25 K/ L 0.04-0.54 (BEAKER) (test code = 416) BASOPHILS ABSOLUTE COUNT (BEAKER) 0.04 K/ L 0.01-0.08 (test code = 417) IMMATURE GRANULOCYTES-RELATIVE 1 % 0-1 PERCENT (BEAKER) (test code = 2801) SARS-COV2/RT-PCR ([facility])2020-03-12 09:49:00 Test Item Value Reference Range Interpretation Comments SARS-COV2/RT-PCR (test code Negative Not Detected, Negative, = 1561794) See external report for linked test SARS-COV-2 PERFORMING [facility] (test code = 2486860) Negative results do not preclude SARS-CoV-2 infection and should not be used as the sole basis for patient management decisions. Negative results must be combined with clinical observations, patient history, and epidemiological information. A false negative result may occur if a specimen is improperly collected, transported or handled.The limit of detection for this assay is 250 copies/mL.This SARS CoV-2 test is a rapid, real-time RT-PCR test intended for the qualitative detection of nucleic acid from SARS-CoV-2 in a nasopharyngeal swab specimen collected from individuals suspected of COVID-19 by their healthcare provider.This test has not been Food and Drug Administration (FDA) cleared or approved and has been authorized by FDA under an Emergency Use Authorization (EUA). This EUA will be effective until the declaration that circumstances exist justifying the authorization of the emergency use of in vitro diagnostic tests for detection and/or diagnosis of COVID-19 is terminated under Section 564(b)(2) of the Act or the EUA is revoked under Section 564(g) of the Act.Fact Sheet for Healthcare Pro viders:https://www.LetMeGo/Documents/Xpert%20Xpress%20SARS%20CoV-2/Fact%20Sh eets/3023802%44BXIK-SQY-5%20HEALTHCARE%20PROVIDERS%20FACT%20SHEET.pdfFact Sheet for Healthcare Patients:https://www.WinLoot.com/Documents/Xpert%20Xpress%20SARS%20CoV-2/Fact%20Sheets/3023801%20SARS-COV -2%20PATIENT%20FACT%20SHEET.pdfPerforming Laboratory:[address] [id number] 05:24:00 Test Item Value Reference Range Interpretation Comments PHOSPHORUS (BEAKER) (test code = 2.8 mg/dL 2.3-4.7 604) [employer] Unit Adjuster ID - ANA [id number] 05:24:00 Test Item Value Reference Range Interpretation Comments MAGNESIUM (BEAKER) (test code = 1.8 mg/dL 1.6-2.6 627) [employer] Unit Adjuster ID - ANA MCOMPREHENSIVE METABOLIC [id number] 05:24:00 Test Item Value Reference Range Interpretation Comments TOTAL PROTEIN 6.0 gm/dL 6.0-8.3 (BEAKER) (test code = 770) ALBUMIN (BEAKER) 3.5 g/dL 3.5-5.0 (test code = 1145) ALKALINE PHOSPHATASE 109 U/L 40-150 (BEAKER) (test code = 346) BILIRUBIN TOTAL 0.3 mg/dL 0.2-1.2 (BEAKER) (test code = 377) SODIUM (BEAKER) (test 138 meq/L 136-145 code = 381) POTASSIUM (BEAKER) 3.5 meq/L 3.5-5.1 (test code = 379) CHLORIDE (BEAKER) 108 meq/L 98-107 H (test code = 382) CO2 (BEAKER) (test 24 meq/L 22-29 code = 355) BLOOD UREA NITROGEN 8 mg/dL 7-21 (BEAKER) (test code = 354) CREATININE (BEAKER) 0.59 mg/dL 0.57-1.25 (test code = 358) GLUCOSE RANDOM 101 mg/dL 70-105 (BEAKER) (test code = 652) CALCIUM (BEAKER) 8.4 mg/dL 8.4-10.2 (test code = 697) AST (SGOT) (BEAKER) 12 U/L 5-34 (test code = 353) ALT (SGPT) (BEAKER) 53 U/L 6-55 (test code = 347) EGFR (BEAKER) (test 158 ESTIMATE D GFR IS code = 1092) mL/min/1.73 sq NOT ACCURA TE m CREATININE CLEARANCE IN PREDICTING GLOMERULAR FILTRATION RATE . ESTIMATED GFR I S NOT APPLICABLE FOR DIALYSIS PATIEN TS. [employer] Unit Adjuster ID - ANA MCBC W/PLT COUNT & AUTO [id number] 04:53:00 Test Item Value Reference Range Interpretation Comments WHITE BLOOD CELL COUNT (BEAKER) 4.1 K/ L 3.5-10.5 (test code = 775) RED BLOOD CELL COUNT (BEAKER) 3.47 M/ L 4.63-6.08 L (test code = 761) HEMOGLOBIN (BEAKER) (test code = 10.2 GM/DL 13.7-17.5 L 410) HEMATOCRIT (BEAKER) (test code = 32.5 % 40.1-51.0 L 411) MEAN CORPUSCULAR VOLUME (BEAKER) 93.7 fL 79.0-92.2 H (test code = 753) MEAN CORPUSCULAR HEMOGLOBIN 29.4 pg 25.7-32.2 (BEAKER) (test code = 751) MEAN CORPUSCULAR HEMOGLOBIN CONC 31.4 GM/DL 32.3-36.5 L (BEAKER) (test code = 752) RED CELL DISTRIBUTION WIDTH 14.6 % 11.6-14.4 H (BEAKER) (test code = 412) PLATELET COUNT (BEAKER) (test 114 K/CU MM 150-450 L code = 756) MEAN PLATELET VOLUME (BEAKER) 10.3 fL 9.4-12.4 (test code = 754) NUCLEATED RED BLOOD CELLS 0 /100 WBC 0-0 (BEAKER) (test code = 413) NEUTROPHILS RELATIVE PERCENT 54 % (BEAKER) (test code = 429) LYMPHOCYTES RELATIVE PERCENT 30 % (BEAKER) (test code = 430) MONOCYTES RELATIVE PERCENT 11 % (BEAKER) (test code = 431) EOSINOPHILS RELATIVE PERCENT 4 % (BEAKER) (test code = 432) BASOPHILS RELATIVE PERCENT 1 % (BEAKER) (test code = 437) NEUTROPHILS ABSOLUTE COUNT 2.21 K/ L 1.78-5.38 (BEAKER) (test code = 670) LYMPHOCYTES ABSOLUTE COUNT 1.24 K/ L 1.32-3.57 L (BEAKER) (test code = 414) MONOCYTES ABSOLUTE COUNT (BEAKER) 0.43 K/ L 0.30-0.82 (test code = 415) EOSINOPHILS ABSOLUTE COUNT 0.18 K/ L 0.04-0.54 (BEAKER) (test code = 416) BASOPHILS ABSOLUTE COUNT (BEAKER) 0.02 K/ L 0.01-0.08 (test code = 417) IMMATURE GRANULOCYTES-RELATIVE 0 % 0-1 PERCENT (BEAKER) (test code = 2801) [id number] 06:01:00 Test Item Value Reference Range Interpretation Comments PHOSPHORUS (BEAKER) (test code = 2.4 mg/dL 2.3-4.7 604) [employer] Unit Adjuster ID - NTPBasic Metabolic [id number] 09:11:00 Test Item Value Reference Range Interpretation Comments Sodium (test code = 140 meq/L 872-538 4733-2) Potassium (test code = 3.8 meq/L 3.5-5.1 2823-3) Chloride (test code = 106 meq/L 98-107 2075-0) CO2 (test code = 25 meq/L 22-29 8-9) BUN (test code = 3 mg/dL 7-21 L 3094-0) Creatinine (test code 0.64 mg/dL 0.57-1.25 = 2160-0) Glucose (test code = 137 mg/dL 70-105 H 2345-7) Calcium (test code = 8.5 mg/dL 8.4-10.2 96118-8) EGFR (test code = 144 mL/min/1.73 [place] [address]-7) NOT ACCURATE CREATININE CLEARANCE IN PREDICTING GLOMERULAR FILTRATION RATE . ESTIMATED GFR I S NOT APPLICABLE FOR DIALYSIS PATIENTS. RADHA (test code = RADHA) [employer] Unit Adjuster ID - MATI C Lab Interpretation Abnormal (test code = 23035-5) [facility] METABOLIC [id number] 09:11:00 Test Item Value Reference Range Interpretation Comments SODIUM (BEAKER) 140 meq/L 136-145 (test code = 381) POTASSIUM (BEAKER) 3.8 meq/L 3.5-5.1 (test code = 379) CHLORIDE (BEAKER) 106 meq/L 98-107 (test code = 382) CO2 (BEAKER) (test 25 meq/L 22-29 code = 355) BLOOD UREA NITROGEN 3 mg/dL 7-21 L (BEAKER) (test code = 354) CREATININE (BEAKER) 0.64 mg/dL 0.57-1.25 (test code = 358) GLUCOSE RANDOM 137 mg/dL 70-105 H (BEAKER) (test code = 652) CALCIUM (BEAKER) 8.5 mg/dL 8.4-10.2 (test code = 697) EGFR (BEAKER) (test 144 mL/min/1.73 ESTIM ATED GFR IS code = 1092) sq m NOT ACCURATE CREATININE CLEARANCE IN PREDICTING GLOMERULAR FILTRATION RATE . ESTIMATED GFR I S NOT APPLICABLE FOR DIALYSIS PATIEN TS. [employer] Unit Adjuster ID - MATI [facility] function [id number] 05:56:00 Test Item Value Reference Range Interpretation Comments Protein, Total (test code 6.3 6.0- 8.3 gm/dL = 2885-2) Albumin (test code = 3.7 g/dL 3.5-5 33717-8) Total Bilirubin (test code 0.2 mg/dL 0.2-1.2 = 1974-2) Bilirubin, Direct (test 0.1 mg/dL 0.1-0.5 code = 1967-7) Alkaline Phosphatase (test 140 U/L 40-150 code = 6768-6) AST (test code = 1920-8) 62 U/L 5-34 H ALT (test code = 1742-6) 127 U/L 6-55 H RADHA (test code = RADHA) [employer] Unit Adjuster ID - IDALIA L Lab Interpretation (test Abnormal code = 84001-6) [facility] Test Item Value Reference Range Interpretation Comments Triglycerides (test 74 mg/dL code = 2571-8) RDAHA (test code = RADHA) TRIGLYCERIDE REFERENCE RANGELow Risk <150Borderline Risk 150-199High Risk 200-499Very High Risk >=500Operator ID - IDALIA L [facility] 05:56:00 Test Item Value Reference Range Interpretation Comments TRIGLYCERIDES (BEAKER) (test code = 74 mg/dL 540) TRIGLYCERIDE REFERENCE RANGELow Risk <150Borderline Risk 150-199High Risk 200-499Very High Risk>=500Operator ID - IDALIA [id number] 05:56:00 Test Item Value Reference Range Interpretation Comments PHOSPHORUS (BEAKER) (test code = 3.5 mg/dL 2.3-4.7 604) [employer]er ID - IDALIA LHEPATIC FUNCTION [id number] 05:56:00 Test Item Value Reference Range Interpretation Comments TOTAL PROTEIN (BEAKER) (test code = 6.3 gm/dL 6.0-8.3 770) ALBUMIN (BEAKER) (test code = 1145) 3.7 g/dL 3.5-5.0 BILIRUBIN TOTAL (BEAKER) (test code 0.2 mg/dL 0.2-1.2 = 377) BILIRUBIN DIRECT (BEAKER) (test 0.1 mg/dL 0.1-0.5 code = 706) ALKALINE PHOSPHATASE (BEAKER) (test 140 U/L 40-150 code = 346) AST (SGOT) (BEAKER) (test code = 62 U/L 5-34 H 353) ALT (SGPT) (BEAKER) (test code = 127 U/L 6-55 H 347) [employer] Adjuster ID - IDALIA LRAD, CHEST, 1 VIEW, NON [id number] 15:36:00Reason for exam:->post picc line insertionShould this be performed at the bedside?->YesFINAL REPORT INDICATION: post picc line insertion COMPARISON: None TECHNIQUE:Single frontal view of the chest. FINDINGS: Lungs and pleura: Clear lungs. No effusion.Heart and mediastinum: Normal heart size. Unremarkable mediastinal contours.Osseous structures: No acute abnormalit y.Other: PICC tip overlies the SVC. IMPRESSION: No acute intrathoracic abnormality. Signed: Purvi Orta Verified Date/Time: 03/09/2020 15:36:17 Reading Location: [facility] Radiology Reading Room XR chest 1 view portable / [id number] 15:36:00Interface, External Ris In - 03/09/2020 3:38 PM CDTFINAL REPORT INDICATION: post picc line insertion COMPARISON: None TECHNIQUE: Single frontal view of the chest. FINDINGS: Lungs and pleura: Clear lungs. No effusion.Heart and mediastinum: Normal heart size. Unremarkable mediastinal contours.Osseous structures: No acute abnormality.Other: PICC tip overlies the SVC. IMPRESSION:No acute intrathoracic abnormality. Signed: Purvi Orta Verified Date/Time: 03/09/202015:36:17 Reading Location: [facility] Radiology Reading [facility] [id number] 07:16:00 Test Item Value Reference Range Interpretation Comments TOTAL PROTEIN 6.0 gm/dL 6.0-8.3 (BEAKER) (test code = 770) ALBUMIN (BEAKER) 3.5 g/dL 3.5-5.0 (test code = 1145) ALKALINE PHOSPHATASE 106 U/L 40-150 (BEAKER) (test code = 346) BILIRUBIN TOTAL 0.3 mg/dL 0.2-1.2 (BEAKER) (test code = 377) SODIUM (BEAKER) (test 143 meq/L 136-145 code = 381) POTASSIUM (BEAKER) 3.6 meq/L 3.5-5.1 (test code = 379) CHLORIDE (BEAKER) 111 meq/L 98-107 H (test code = 382) CO2 (BEAKER) (test 26 meq/L 22-29 code = 355) BLOOD UREA NITROGEN 3 mg/dL 7-21 L (BEAKER) (test code = 354) CREATININE (BEAKER) 0.63 mg/dL 0.57-1.25 (test code = 358) GLUCOSE RANDOM 141 mg/dL 70-105 H (BEAKER) (test code = 652) CALCIUM (BEAKER) 8.6 mg/dL 8.4-10.2 (test code = 697) AST (SGOT) (BEAKER) 33 U/L 5-34 (test code = 353) ALT (SGPT) (BEAKER) 80 U/L 6-55 H (test code = 347) EGFR (BEAKER) (test 147 ESTIMATE D GFR IS code = 1092) mL/min/1.73 sq NOT ACCURA TE m CREATININE CLEARANCE IN PREDICTING GLOMERULAR FILTRATION RATE . ESTIMATED GFR I S NOT APPLICABLE FOR DIALYSIS PATIEN TS. [employer] Adjuster ID - JEFFRY WCBC W/PLT COUNT & AUTO [id number] 06:19:00 Test Item Value Reference Range Interpretation Comments WHITE BLOOD CELL COUNT (BEAKER) 2.4 K/ L 3.5-10.5 L (test code = 775) RED BLOOD CELL COUNT (BEAKER) 3.59 M/ L 4.63-6.08 L (test code = 761) HEMOGLOBIN (BEAKER) (test code = 10.5 GM/DL 13.7-17.5 L 410) HEMATOCRIT (BEAKER) (test code = 33.6 % 40.1-51.0 L 411) MEAN CORPUSCULAR VOLUME (BEAKER) 93.6 fL 79.0-92.2 H (test code = 753) MEAN CORPUSCULAR HEMOGLOBIN 29.2 pg 25.7-32.2 (BEAKER) (test code = 751) MEAN CORPUSCULAR HEMOGLOBIN CONC 31.3 GM/DL 32.3-36.5 L (BEAKER) (test code = 752) RED CELL DISTRIBUTION WIDTH 14.9 % 11.6-14.4 H (BEAKER) (test code = 412) PLATELET COUNT (BEAKER) (test 107 K/CU MM 150-450 L code = 756) MEAN PLATELET VOLUME (BEAKER) 10.3 fL 9.4-12.4 (test code = 754) NUCLEATED RED BLOOD CELLS 0 /100 WBC 0-0 (BEAKER) (test code = 413) NEUTROPHILS RELATIVE PERCENT 50 % (BEAKER) (test code = 429) LYMPHOCYTES RELATIVE PERCENT 34 % (BEAKER) (test code = 430) MONOCYTES RELATIVE PERCENT 11 % (BEAKER) (test code = 431) EOSINOPHILS RELATIVE PERCENT 4 % (BEAKER) (test code = 432) BASOPHILS RELATIVE PERCENT 1 % (BEAKER) (test code = 437) NEUTROPHILS ABSOLUTE COUNT 1.22 K/ L 1.78-5.38 L (BEAKER) (test code = 670) LYMPHOCYTES ABSOLUTE COUNT 0.83 K/ L 1.32-3.57 L (BEAKER) (test code = 414) MONOCYTES ABSOLUTE COUNT (BEAKER) 0.27 K/ L 0.30-0.82 L (test code = 415) EOSINOPHILS ABSOLUTE COUNT 0.10 K/ L 0.04-0.54 (BEAKER) (test code = 416) BASOPHILS ABSOLUTE COUNT (BEAKER) 0.02 K/ L 0.01-0.08 (test code = 417) IMMATURE GRANULOCYTES-RELATIVE 0 % 0-1 PERCENT (BEAKER) (test code = 2801) Tissue [id number] 15:29:00 Test Item Value Reference Range Interpretation Comments Case Report (test code Surgical Pathology = 104) Report Case: [id number] Authorizing Provider: Rosa Forte MD Collected: 03/05/2020 08:32 AM Ordering Location: [facility] Received: 03/05/2020 10:12 AM SERVICES Pathologist: Inocencio Carballo MD Specimen: Gallbladder DIAGNOSIS (test code = [id number] 3220) uZzEwMzNcZnRuYmpcdWMxIH qppmUcLVvho8ToC7GcXvHwB FxhbnNpXGRlZmxhbmcxMDMz THR7srOkVPKwPDuyWJNbUQv qLf4bsUXheOohMjPrNCAhs7 pjidTRheojpGy2i2woCWXeT tM0dLHpXPqgP5gutaExbPNc PILrSEm2fF11PNEbfX6xnRO cSWynggFkOkM1TWweSZRmDl L8HRMcmPPgVEDtO6izEIPuB VrmAWKnRCaxmJVrFPM5sAtq v0Q6oFJasIOsaWfhIsCwDcI dZLUAo3DoYGa3vDwxH4MfLT EzUeG4dROhQEHfHOzsRLMlA VOyifB6fI54HOqvluA1wJQk q6Vma79zb011iM0ebFOfNTG 9IPYvZLLmnXLaPUUuOKN1YY HsfDVdD2x1VhAalZFbS4I8J cDurDAqG9Y7UfNyqHFmS3W6 DbCzrHZjLWAbhBPbQb9tfNG bdXIade8wsj62RCG8k0TzlU kcFEO0XWL1LlGwJr6kzVCcO FOlXD6gXwSigTCjBKSpii68 pQyhSJezidCvvI5oZkWkEUS vnZWlPSCmRC3nnCIjLAVheZ 5ucmxjXHBnYnJkcmhlYWRcc MlulrBwSb2ouOcdAJA7CQys A5tqhF4dXjQ7TSczU7celT2 aEOk0GPwxxSC2CHEdhQ6wDW 5tldibk4goGbItOU1dxuhbs 9ehHuDtCU1xoqb1x0npQgRj GM1nzpcsy7ktUsUpEZeeHNT dnrpjKKBrj2TtsuknYYJwu6 DjR4TmcErqV42lpBhaJ40rE ZHwjXpmbY4viFwpgO7rSfDl ZnMyNFxxbFxwbGFpblxmMVx mczIwXGxhbmcxMDMzXGhpY2 dbCsMyOTUvkInsKLkgk5QoL KAvYRArCfWbHY4zT9RZVNES FOUZGRWvMNQCY5nNX7bZKDD SKZ8AJPlioZIyLX6kSJRFIX WNTovZJPCKG9cIS7fFZZxGP IEruCKgvAytrlRlBGwoy0Tu HZcaQQJhJR8wcWzhIDAhNW6 yISCkJ7xmoX4uuvy9EaVtEI PtVtC5XARvbyA5Olk1XSPiU Qexl5mgy9AtBBVcICy6kWzp TiMmNMBix7tlufGvAfZnQGY wEELjSAAhqQCdM432t8xoi6 msrcAroDN1EIKkWOI6EXoky nIkvtV6LOyysKTjWvQ2PIvi mrKkSHzazrFcxmSwCla5EOT xW756RMH9vRfdu0qfNKV6OA ZyPUHrNwKaVi5seXHbD597C WSgZXCABQYurWz9NAWcnpJk pwVknTJEu585K525s7byPSP vbdZejTpWnojtk2vuL317EV BhcGVydzEyMjQwXHBhcGVya VD8POUkTU4tvnjtFSmqQFpi LUIsqlT6ISVbmTFkK7XiYQA hWZ5znyzrZPH9BWaoINLaBZ E2QlSvGBIon7Kkjka7FaHep v4kfe34HEL1p4TpgXdoTCQ8 PTD4OtGwJi8byPZeNXUlCW9 hSuNucEStKYJjcd73zEvkUZ liTYB0BFPlcfVey9Slv0snE gKhphHmG0xcU0RaFQOvWTRa LEYdFlHldtNca2Ynv8QccZC guRe7d1nbCXBoDZHbwHahb5 tpZFW5WDKmoNDdO2meyY3fC GQeBU3cettcq5fwVJshJIfi SBObgYN4mvA5FTVjwZRbI7B gnS6rJDIkXGhxXJXvozj9Tm GyDa4wnPZgdAvbQAlrDlnqH WdlXHBnbmNvbnRccGduZGVj XHBsYWluXHBsYWluXGYwXGZ zMjRccWxcbGFuZzEwMzNcaG ljaFxmMVxkYmNoXGYxXGxvY 1cpTeLsMzKhKtl2UMQpxXAp XEIyIdf0BCJcaAYwCBSFtXk ybB0iYAJbyVuqpT5pyTC3HI WbuiIxhWZMqB5eWKFYrC8jR eL7IxJlVpR6BBl2HtTybEPb fX0= CPT Code(s) (test code g2iukKLnQGNquIQaJpBjHBY = 3357) qYXGvb2zsCJAowCPwXnBhDt NcZnRuYmpcdWMxXGRlZmYwe 9kvk096hAWld1hqCQJwAcM1 uTQvBZJmgNYgC985f8gzp8n ohlZjtAP7MAJoOVU2RPedpr PxgjG6YWojrGJmTwP9VJdvj iHxDXgshpFrlxYvApo5QYDn N972KFE9fVkbr9fyKKT7TLR bNDNuAxQsXc4srCNdE263FX NkQBNGTCLurCf6CLRhjbHkx wAhkXKYr467K892n4hePSEp ftPbuSwCxwvjp5rvU451EEM hcGVydzEyMjQwXHBhcGVyaD E5OCVpAD5imgwzJeZbPR0gf umsYiVrYL7tgod0XdTaJO8f cmdiNzIwXGhlYWRlcnkwXGZ bs9DiqrtdHR1hJ2Phb1X2xM 9maXRcZGVmdGFiNzIwXGZvc r4xkXYxVSjrt5ObDOP0szM2 lVTecXNtDGBsUX80Knrcr4E jVmcnTAY1FGPnkwQms7Wxg1 pgSjXfvzRcB5jqA4LeFKFoO WCjWJYsLwHcedFen2Zek6Ti wYSkmZo7b4qfTTFtGMLzgBi rn5voALI8CROeE8G6tSVat5 khORthJLWzxFJ2konqQMnbD PHqydR8blteRHynNSCqqWM4 obenYUxtUGSvNzL3mcrfQMv kPYReXEA2SHvau981QAV5WN xzYmtwYWdlXHBnbmNvbnRcc GduZGVjXHBsYWluXHBsYWlu XGYwXGZzMjRccWxccGxhaW5 gLbXqFdUwXDnlUM5eGELvZ5 fmaQJjMKByTVZjG4mkVpFbl M8imGofPGocrdOlPXs0UsA5 XHBhcn0= CLINICAL HISTORY (test q0wpnEMiDLSgaYHrZoJdHDE code = 335) rCEScf9flUAChyDRgGzQvCo NcZnRuYmpcdWMxXGRlZmYwe 6rib414fFOox5cwPHPpMqC3 pAUnFMUwpNWcD002p2pim2a zhfHolSG6BUBpEJO1TZyiib DpzeR3ZYubwVQxCiV1UHhnx gJsEYdvzzJgdeTbDun0SVIa S287IRS1lEdoc6vhDBQ4HRR pDDZpGmOeHm0npVWkR376ZX KdDYERJNUfgOz9JROtqyPna lJhtQVVk560Z857t3xvFAJi xfKojYdSvpypz9ewW582YMT hcGVydzEyMjQwXHBhcGVyaD B1KQAgYP6bbqkvXlXfTN5ny cikBmKaYY4xprg6NlUqGX6x cmdiNzIwXGhlYWRlcnkwXGZ ny0IskgvwRF7pE3Smy5T8nW 9maXRcZGVmdGFiNzIwXGZvc l2tbYShRVdau5KcEZH7ikI8 kNJrgSOkFZIjQU28Keqyt9L qFnrhTNT2OHJrsfXfw1Oes1 dzNfQgbnEzG0cxY0SjMDEfC VEnDTOhIaWjctSyi6Mus0Kf bCFtzRo8u3umYSXbUPKyoSd do4pxLKR9MKTfX7I2jHWmh5 krLEltMKNmhTP7kumlWWlzK NRspeL5cuebOTzrHHQkaDN5 ojomRDygCELuYdX0ymjxZHs nCTFuDMB6EHlmo746TPB6PB xzYmtwYWdlXHBnbmNvbnRcc GduZGVjXHBsYWluXHBsYWlu XGYwXGZzMjRccWxccGxhaW5 oZcYyWxMfOUshCY6mWUFrB1 ppnTBgDJDwPAWnM9yaRyEwt P0utMkgOKwuspFvTFArAP7k WORtVPttz7GhmzowIG17gKE mESZkwl2ggSGsxTGvA0FjAQ RpdGlzIFxwYXJ9 SPECIMEN SOURCE (test b8gdqQBrKFAtxDGnEiOnXBD code = 3377) cZCHmd8cfWINjsKBlQoOjVz NcZnRuYmpcdWMxXGRlZmYwe 2wda537xFHqo1wjRKQgOqE0 tYRgNBEgtGWzP269i7wle5q teeOhpMC8TFSfFWG0JYwtkw FdjlS6WPvqcQTsAmR9XMmcs xXtKWfoyaPdotPeJnj4BVHz Q659NPX3hBlaz9bdCDQ0LFC qQGSaNvSzWi4dfGAbO430FK ZeRSKSZNLkpTb4YITetqDrc lDzvYVTq490C089j6zoWEZr ivRpfLeEcungc1pdW907FTA hcGVydzEyMjQwXHBhcGVyaD G6XTEzNU0yovdzCgCuSV9vv gzkQpXcRX4vkws0ClQbJL0d cmdiNzIwXGhlYWRlcnkwXGZ rc1LxeriuDK9aT1Dtz6L9gU 9maXRcZGVmdGFiNzIwXGZvc j6ewJXvTObgk0FpRJH7hvJ2 fSJecOIrYLYkRP60Wcbpk2P sAbjjCDR9GIVmbmKrq0Uxz3 hnYvVkdpKfD0sjR1SqJMIhV NVoOPSbJzApacObg1Tzl6Cn rMFuzOo5x2lmXXEcCHIjjNi by3gfNXD5VDSbE6Z1eYVny9 mvEAhbSGLdhNE7vwjaHDotR QFldiK2ssaeBJukPZAolNH3 thdpCUnrAJXcKiM6hcanOBw sOLMqZRT3PAxse339JBB9NI xzYmtwYWdlXHBnbmNvbnRcc GduZGVjXHBsYWluXHBsYWlu XGYwXGZzMjRccWxccGxhaW5 tNaXxYiNuBFojVW5uDMBtZ1 ttsBUnHCWcQJCwT2hoAsAnn I1fvItiKXjfokKkDZithKer bGFkZGVyIFxwYXJ9 GROSS DESCRIPTION f5olcNGtIZHqaMXyJeKcDZN (test code = 3366) kNEFfq8wuEVWlxOIfJzMgQw NcZnRuYmpcdWMxXGRlZmYwe 8mei028rKJnr0haRBEpLjR3 xKFkDBFpjVYpN129QPRvOXt cf1oyk6FfPPQmgFGan7Q8JR XMcrmgtEz5hQpeJ04gn1H6S crmW5dyITFiXYnjXHHgTXan uVAzHKR9EVCjVMI8AVrtasZ lcdV4CMtesKGkYiD3TTz5j6 ujnHbaFXHyWIL3e2bhDBexn hWmRA4agx4xnAk3c2zdjxIu QFQjGMQdeGFCKEApJ3BvzPn zVk9aeEh1iHewLbacRZG0Cy p1EA7add24iko7dOplWRQzz cdrVmF7OTjvGKOopjrpHMz2 MFxtYXJnbDcyMFxtYXJncjc yMFxtYXJndDcyMFxtYXJnYj zgQImyIOCdVKS7QAvkq918Q PZ2FWbnq6cpo0vygVCvKpb0 NGEkYtDtJfetNDlmo4Oqb6i qMPPhpi3vOWA6wNNheOkcb2 J2yUMrLSQxeYQsswEvGVCyC mF4JAfyEI5vdv98ETLcLRC4 ny2tpCDzgWxjksRskFAyHTq fK8VnPQXcp872GTRpG6UdBN Gss3K6poBpPmUsGFWbdCQ8t eG0HYFoLWp4yNPgquK6yjDv lVVaV8gyqQ07LySgwKBkQ5I igW69KqNriJNbL2IdfG83Jy MitMPuG8QwnN06FnHeaTMuH OFlmDOfAj6luBOhzIJkk8Xf bFQdEUbiY71bo556NQJlfqU fN5elnONqnjjrvPBjyvktKR xmczIwXHFsXHBsYWluXGYwX VYvHbNqlXfexO7tFsKcJgEa IGCFSHKwzKSoRLVhvzRcb0A tYWxpbiBsYWJlbGVkIHdpdG ggdGhlIHBhdGllbnQncyBuY A6iQZRmY9Boy7Cov93ndkZw YfNqWFFzPRUlG1DgvOCfCJG kZXIiIGlzIGFuIDExLjAgeC VuQgIpsMUpOlEwV96haV96S MQ3YWelrLuamIPvVJIyEBid wPecTEXbSjJiC38bmT6dwYB jS6VuMXqcWF0bMSVvHLdfXO NmBI7gpZWbMXZ9vADkzSCuJ YK8r9HxNjNziWS2NaMHvPFq u7Dfg3SaDVctLJgzlJcctd7 pbG5zTGDibZ5rlPdbIW5sOH m2tOExJH5gXl6hTSlhFGDrY GCdbDGwSSgxVD9oPC6iKMH0 iyAmQOJrXMomTQLycs43bP9 maHIruCDtJG9mZN3hFYmzzO xvdyBiaWxlLiBDYWxjdWxpI WVfOGOge3FbdZGntcKhCdli JR9uSMccEW75M27mYNSntyP 8JW3umQehhzUuipAksGIsNv SlaHkgnHIzOrETnZMrw9Ctz ZRlGQOxpTHhmtXgUwZkN44l oLgaR2ydGVMbiEOav4QytHH 1hVWxBUInW2Zue90qRTVpMA ApzNKlpTW1OEMspB4xSFDkD EUhHXwniGyiwMntNNvmf9Ur QMD6r8ZkEuWgpDT1XR1opzf bssRkklNMAQ2rQPZNL6HbGQ xwYXJ9 MICROSCOPIC v4hpjKZwEACnmGGpGjTgZON DESCRIPTION (test code lMEZme7rcNGMagEKzYxFjAk = 3370) NcZnRuYmpcdWMxXGRlZmYwe 7han681vWBqa4blAYMbCaU3 gHXpNXXozUUpR163c2qvq4n hfmAuaXV9KUIkBEW6VPbgvo OatcM9EFshzWKnWzF9GQvre eNmSNiphzLgbyKcNae2VCIu T529FDJ7sQsgq4uhWPB2XNF mGHIjEnRaFp9gnEGnP316MW MfNPQETIJygVw2MZFudtRrx rGqrLDRq185L644a3fpTQOv ctRocNgTxrncm4bnK477UQU hcGVydzEyMjQwXHBhcGVyaD V8YDXoAI5afmmtVeFtWE2nj wuwDpYvDM7pmwu1FnLuZE5o cmdiNzIwXGhlYWRlcnkwXGZ ch6PnlnqzWF9lD5Thu6U0nN 9maXRcZGVmdGFiNzIwXGZvc g7qrBWjADzhp8OjCAP1gyP1 tCRulCCmRHIhAC38Lfqyc2M zMwtrAXC9LYPaigUhi2Abz7 quRgZcqiKiJ1ebK0BqXFNsA AHtYOWwQeDozdZdv0Jrb6Gq aPQbfEn2i4avROVyTPUoqUb zl1qjHFU9JKPyE5J9kVYru6 btUVukKIUarCS6qgodEEtnG QPzdnP9ogqpNBfjDFVxyNX0 yvdhTJttEDZyZhC5yxgkWTu zSCFcEQH9BBqsm489TLQ3JQ xzYmtwYWdlXHBnbmNvbnRcc GduZGVjXHBsYWluXHBsYWlu XGYwXGZzMjRccWxccGxhaW5 oNyMpCeEmSQaaXI7jFAVdP3 hztPGkVPBtSTYgQ3vvHqKmt U9suZcnQCqfxdLqJXHbrkJz dn4lBW6ptOGvxO== Gross assessment was [facility]. [facility] performed at ([facility], code = 2777) Department of Pathology, [address] [place] [address], Professional component [facility] was performed at ([facility], code = 2779) Department of Pathology, [address] [place] [address], [id number] 15:29:00Surgical Pathology Report Case: [id number] Authorizing Provider: Rosa Forte MD Collected: 03/05/2020 08:32 AM Ordering Location: [facility] Received: 03/05/2020 10:12 AM SERVICES Pathologist: Inocencio Carballo MD Specimen: Gallbladder A. GALLBLADDER, CHOLECYSTECTOMY:- CHRONIC CHOLECYSTITIS Signing Pathologist Direct Phone Line: [phone] signed by Inocencio Carballo MD on 03/08/2020 at 3:29 [id number] diagnosis: Other chronic p ancreatitis Gallbladder Received in formalin labeled with the patient's name, accession number and "gallbladder" is an [...] trabeculated. The wall measures 0.2 cm thick. Ash Handler sections are submitted in A1-A2, with the inked cystic duct margin in A1. PA/pl Performed.[facility], Department of Pathology, [address] [place] [address], [facility], Department of [facility]ology, [address] [place] [address], SEBKPQSBHYAWN [id number] 13:48:00Unlisted Reason for Exam - Click Yes and Enter Reason Below->NoFINAL REPORT PROCEDURE: HEPATOBILIARY SCAN CPT CODE: 51017 INDICATION: Perforation, bile duct PROTOCOL: 5.4 mCi of Tc-99m mebrofenin was injected intravenously. Images of the upper abdomen were obtained for approximately 75 minutes after tracer injection. FINDINGS: Initial tracer uptake into the liver is physiological. Subsequent tracer clearance from the liver proceeds normally. There is good visualization of the extrahepatic biliary duct andthe tracer appears appropriately in the small bowel. There is no tracer activity outside the appropriate anatomic structures. IMPRESSION: 1.Normal hepatobiliary scan.2.No evidence of biliary leak. Signed: David Caal MDReport Verified Date/Time: 03/08/2020 13:48:03 Reading Location: [place] [address] Med Reading Room [facility] hepatobiliary (HIDA) [id number] 13:48:00Interface, External Ris In - 03/08/2020 1:50 PM CDTFINAL REPORT PROCEDURE: HEPATOBILIARY SCAN CPT CODE: 67514 INDICATION: Perforation, bile duct PROTOCOL: 5.4 mCi of Tc-99m mebrofenin was injected intravenously. Images of the upper abdomen were obtainedfor approximately 75 minutes after tracer injection. FINDINGS: Initial tracer uptake into the liver is physiological. Subsequent tracer clearance from the liver proceeds normally. There is good visualization of the extrahepatic biliary duct and the tracer appears appropriately in the small bowel. There is no tracer activity outside the appropriate anatomic structures. IMPRESSION: 1.Normal hepatobiliary scan.2.No evidence of biliary leak. Signed: David Caal MDReport Verified Date/Time: 03/08/2020 13:48:03 Reading Location: [address] [place] [address] Reading Room Electronically signedby: DAVID CAAL MD on 03/08/2020 01:48 [facility] [id number] 09:43:00 Test Item Value Reference Range Interpretation Comments TOTAL PROTEIN 6.7 gm/dL 6.0-8.3 (BEAKER) (test code = 770) ALBUMIN (BEAKER) 3.8 g/dL 3.5-5.0 (test code = 1145) ALKALINE PHOSPHATASE 123 U/L 40-150 (BEAKER) (test code = 346) BILIRUBIN TOTAL 0.3 mg/dL 0.2-1.2 (BEAKER) (test code = 377) SODIUM (BEAKER) (test 139 meq/L 136-145 code = 381) POTASSIUM (BEAKER) 4.1 meq/L 3.5-5.1 (test code = 379) CHLORIDE (BEAKER) 107 meq/L 98-107 (test code = 382) CO2 (BEAKER) (test 20 meq/L 22-29 L code = 355) BLOOD UREA NITROGEN 3 mg/dL 7-21 L (BEAKER) (test code = 354) CREATININE (BEAKER) 0.72 mg/dL 0.57-1.25 (test code = 358) GLUCOSE RANDOM 169 mg/dL 70-105 H (BEAKER) (test code = 652) CALCIUM (BEAKER) 8.8 mg/dL 8.4-10.2 (test code = 697) AST (SGOT) (BEAKER) 100 U/L 5-34 H (test code = 353) ALT (SGPT) (BEAKER) 126 U/L 6-55 H (test code = 347) EGFR (BEAKER) (test 126 ESTIMATE D GFR IS code = 1092) mL/min/1.73 sq NOT ACCURA TE m CREATININE CLEARANCE IN PREDICTING GLOMERULAR FILTRATION RATE . ESTIMATED GFR I S NOT APPLICABLE FOR DIALYSIS PATIEN TS. [employer] Unit Adjuster ID - ANA MCBC W/PLT COUNT & AUTO [id number] 05:33:00 Test Item Value Reference Range Interpretation Comments WHITE BLOOD CELL COUNT (BEAKER) 4.7 K/ L 3.5-10.5 (test code = 775) RED BLOOD CELL COUNT (BEAKER) 4.04 M/ L 4.63-6.08 L (test code = 761) HEMOGLOBIN (BEAKER) (test code = 11.8 GM/DL 13.7-17.5 L 410) HEMATOCRIT (BEAKER) (test code = 37.8 % 40.1-51.0 L 411) MEAN CORPUSCULAR VOLUME (BEAKER) 93.6 fL 79.0-92.2 H (test code = 753) MEAN CORPUSCULAR HEMOGLOBIN 29.2 pg 25.7-32.2 (BEAKER) (test code = 751) MEAN CORPUSCULAR HEMOGLOBIN CONC 31.2 GM/DL 32.3-36.5 L (BEAKER) (test code = 752) RED CELL DISTRIBUTION WIDTH 14.9 % 11.6-14.4 H (BEAKER) (test code = 412) PLATELET COUNT (BEAKER) (test 132 K/CU MM 150-450 L code = 756) MEAN PLATELET VOLUME (BEAKER) 9.8 fL 9.4-12.4 (test code = 754) NUCLEATED RED BLOOD CELLS 0 /100 WBC 0-0 (BEAKER) (test code = 413) NEUTROPHILS RELATIVE PERCENT 55 % (BEAKER) (test code = 429) LYMPHOCYTES RELATIVE PERCENT 29 % (BEAKER) (test code = 430) MONOCYTES RELATIVE PERCENT 14 % (BEAKER) (test code = 431) EOSINOPHILS RELATIVE PERCENT 2 % (BEAKER) (test code = 432) BASOPHILS RELATIVE PERCENT 0 % (BEAKER) (test code = 437) NEUTROPHILS ABSOLUTE COUNT 2.59 K/ L 1.78-5.38 (BEAKER) (test code = 670) LYMPHOCYTES ABSOLUTE COUNT 1.35 K/ L 1.32-3.57 (BEAKER) (test code = 414) MONOCYTES ABSOLUTE COUNT (BEAKER) 0.65 K/ L 0.30-0.82 (test code = 415) EOSINOPHILS ABSOLUTE COUNT 0.09 K/ L 0.04-0.54 (BEAKER) (test code = 416) BASOPHILS ABSOLUTE COUNT (BEAKER) 0.01 K/ L 0.01-0.08 (test code = 417) IMMATURE GRANULOCYTES-RELATIVE 0 % 0-1 PERCENT (BEAKER) (test code = 2801) [id number] 13:09:00 Test Item Value Reference Range Interpretation Comments Lipase (test code = >1200 8-78 H 3040-3) RADHA (test code = RADHA) [employer] Adjuster ID - ANA M Lab Interpretation (test Abnormal code = 83130-9) [facility] 13:09:00 Test Item Value Reference Range Interpretation Comments LIPASE (BEAKER) (test code = 749) > U/L 8-78 H [employer] Adjuster ID - ANA EPATIC FUNCTION [id number] 13:00:00 Test Item Value Reference Range Interpretation Comments TOTAL PROTEIN (BEAKER) (test code = 6.1 gm/dL 6.0-8.3 770) ALBUMIN (BEAKER) (test code = 1145) 3.6 g/dL 3.5-5.0 BILIRUBIN TOTAL (BEAKER) (test code 0.1 mg/dL 0.2-1.2 L = 377) BILIRUBIN DIRECT (BEAKER) (test 0.1 mg/dL 0.1-0.5 code = 706) ALKALINE PHOSPHATASE (BEAKER) (test 98 U/L 40-150 code = 346) AST (SGOT) (BEAKER) (test code = 49 U/L 5-34 H 353) ALT (SGPT) (BEAKER) (test code = 99 U/L 6-55 H 347) [employer] Adjuster ID - ANA MBASIC METABOLIC [id number] 05:14:00 Test Item Value Reference Range Interpretation Comments SODIUM (BEAKER) 141 meq/L 136-145 (test code = 381) POTASSIUM (BEAKER) 4.8 meq/L 3.5-5.1 (test code = 379) CHLORIDE (BEAKER) 111 meq/L 98-107 H (test code = 382) CO2 (BEAKER) (test 24 meq/L 22-29 code = 355) BLOOD UREA NITROGEN 5 mg/dL 7-21 L (BEAKER) (test code = 354) CREATININE (BEAKER) 0.59 mg/dL 0.57-1.25 (test code = 358) GLUCOSE RANDOM 104 mg/dL 70-105 (BEAKER) (test code = 652) CALCIUM (BEAKER) 8.9 mg/dL 8.4-10.2 (test code = 697) EGFR (BEAKER) (test 158 mL/min/1.73 ESTIM ATED GFR IS code = 1092) sq m NOT ACCURATE CREATININE CLEARANCE IN PREDICTING GLOMERULAR FILTRATION RATE . ESTIMATED GFR I S NOT APPLICABLE FOR DIALYSIS PATIEN TS. [employer] Spr[employer] Unit Adjuster ID - EDASICBC W/PLT COUNT & AUTO [id number] 04:48:00 Test Item Value Reference Range Interpretation Comments WHITE BLOOD CELL COUNT (BEAKER) 5.2 K/ L 3.5-10.5 (test code = 775) RED BLOOD CELL COUNT (BEAKER) 3.70 M/ L 4.63-6.08 L (test code = 761) HEMOGLOBIN (BEAKER) (test code = 10.7 GM/DL 13.7-17.5 L 410) HEMATOCRIT (BEAKER) (test code = 34.8 % 40.1-51.0 L 411) MEAN CORPUSCULAR VOLUME (BEAKER) 94.1 fL 79.0-92.2 H (test code = 753) MEAN CORPUSCULAR HEMOGLOBIN 28.9 pg 25.7-32.2 (BEAKER) (test code = 751) MEAN CORPUSCULAR HEMOGLOBIN CONC 30.7 GM/DL 32.3-36.5 L (BEAKER) (test code = 752) RED CELL DISTRIBUTION WIDTH 15.6 % 11.6-14.4 H (BEAKER) (test code = 412) PLATELET COUNT (BEAKER) (test 139 K/CU MM 150-450 L code = 756) MEAN PLATELET VOLUME (BEAKER) 10.3 fL 9.4-12.4 (test code = 754) NUCLEATED RED BLOOD CELLS 0 /100 WBC 0-0 (BEAKER) (test code = 413) NEUTROPHILS RELATIVE PERCENT 55 % (BEAKER) (test code = 429) LYMPHOCYTES RELATIVE PERCENT 31 % (BEAKER) (test code = 430) MONOCYTES RELATIVE PERCENT 11 % (BEAKER) (test code = 431) EOSINOPHILS RELATIVE PERCENT 1 % (BEAKER) (test code = 432) BASOPHILS RELATIVE PERCENT 1 % (BEAKER) (test code = 437) NEUTROPHILS ABSOLUTE COUNT 2.87 K/ L 1.78-5.38 (BEAKER) (test code = 670) LYMPHOCYTES ABSOLUTE COUNT 1.58 K/ L 1.32-3.57 (BEAKER) (test code = 414) MONOCYTES ABSOLUTE COUNT (BEAKER) 0.59 K/ L 0.30-0.82 (test code = 415) EOSINOPHILS ABSOLUTE COUNT 0.06 K/ L 0.04-0.54 (BEAKER) (test code = 416) BASOPHILS ABSOLUTE COUNT (BEAKER) 0.03 K/ L 0.01-0.08 (test code = 417) IMMATURE GRANULOCYTES-RELATIVE 1 % 0-1 PERCENT (BEAKER) (test code = 2801) CT, [id number] 02:14:00Unlisted Reason for Exam - Click Yes and Enter Reason Below->NoFINAL REPORT CT, ABDOMEN \\T\\ PELVIS, WITH IV CONTRAST INDICATION: Abdominal pain, acute (Ped 0-18y) COMPARISON: None TECHNIQUE:Post contrast abdomen and pelvis CT. Coronal and sagittal reformatted images obtained. DOSE REDUCTION: Dose modulation, iterative reconstruction, and/or weight-based adjustment of the mA/kV was utilized to reduce the radiation dose to as low as reasonably achievable. FINDINGS: Lower thorax: Bilateral lower lobe dependent atelectasis. The heart is normal in size. No pericardial effusion. Small hiatal hernia. Liver: Hepatomegaly. No parenchymal abnorma lity.Gallbladder and biliary tree: Postsurgical changes of an interval cholecystectomy. There is small volume gas and fluid in the cholecystectomy bed, likely postsurgical however indeterminate on thisexamination. No ductal dilatation.Pancreas: Mild inflammatory changes surrounding the pancreatic pare nchyma suggestive of acute pancreatitis. The pancreas enhances homogeneously. No drainable fluid collections.Spleen: Splenomegaly with the spleen measuring 14 cm in the greatest craniocaudal dimension.Adrenal Glands: No acute findings.Kidneys and ureters: No hydronephrosis or nephrolithiasis.Bladder and reproductive organs: Unremarkable. Stomach and Duodenum: No significant findings.Small and large intestine: Normal calibers. Again seen is mild wall thickening of the distal large bowel favored to berelated to underdistention no surrounding inflammatory changes.Appendix: Not identified however no secondary findings of acute appendicitis in the right lower quadrant. Major vascular structures: Normal aortic caliber. 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 Multiple prominent venous collaterals in the left upper quadrant.Peritoneum and retroperitoneum: No free air, fluidor adenopathy. Skeleton: No acute bony abnormality.Additional findings: Soft tissue stranding over the anterior abdominal wall may be postsurgical.. IMPRESSION: Postsurgical changes of a recent cholecystectomy. There is small volume pneumoperitoneum with fluid in the gallbladder fossa. Likely postsurgical however there is concern for a bile leak recommend further evaluation with nuclear medicinescan. Persistent findings of acute pancreatitis. No evidence of pancreatic necrosis or drainable fluid collection. Hepatosplenomegaly. 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 Signed: Dayana Garces MDReport Verified Date/Time: 03/07/2020 02:14:11 [facility]/pelvis with IV [id number] 02:14:00Interface, External Ris In - 03/07/2020 2:[address], ABDOMEN \\T\\ PELVIS, WITH IV CONTRAST INDICATION: Abdominal pain, acute (Ped 0-18y) COMPARISON: None TECHNIQUE:Post contrast abdomen and pelvis CT. Coronal and sagittal reformatted images obtained. DOSE REDUCTION: Dose modulation, iterative reconstruction, and/or weight-based adjustment of the mA/kV was utiliz ed to reduce the radiation dose to as low as reasonably achievable. FINDINGS: Lower thorax: Bilateral lower lobe dependent atelectasis. The heart is normal in size. No pericardial effusion. Small hiatal hernia. Liver: Hepatomegaly. No parenchymal abnormality.Gallbladder and biliary tree: Postsurgical changes of an interval cholecystectomy. There is small volume gas and fluid in the cholecystectomy bed, likely postsurgical however indeterminate on this examination. No ductal dilatation.Pancreas: Mildinflammatory changes surrounding the pancreatic parenchyma suggestive of acute pancreatitis. The pancreas enhances homogeneously. No drainable fluid collections.Spleen: Splenomegaly with the spleen measuring 14 cm in the greatest craniocaudal dimension.Adrenal Glands: No acute findings.Kidneys and ureters: No hydronephrosis or nephrolithiasis.Bladder and reproductive organs: Unremarkable. Stomach and Duodenum: No significant findings.Small and large intestine: Normal calibers. Again seen is mild wall thickening of the distal large bowel favored to be related to underdistention no surrounding inflammatory changes.Appendix: Not identified however no secondary findings of acute appendicitis in the right lower quadrant. Major vascular structures: Normal aortic caliber. 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 Multiple prominent venous collaterals in the left upper quadrant .Peritoneum and retroperitoneum: No free air, fluid or adenopathy. Skeleton: No acute bony abnormality.Additional findings: Soft tissue stranding over the anterior abdominal wall may be postsurgical.. IMPRESSION: Postsurgical changes of a recent cholecystectomy. There is small volume pneumoperitoneum with fluid in the gallbladder fossa. Likely postsurgical however there is concern for a bile leak recommend further evaluation with nuclear medicine scan. Persistent findings of acute pancreatitis.No evidence of pancreatic necrosis or drainable fluid collection. Hepatosplenomegaly. 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 Signed: Dayana Garces MDReport Verified D ate/Time: 03/07/2020 02:14:11 02:14 [facility] METABOLIC [id number] 06:22:00 Test Item Value Reference Range Interpretation Comments SODIUM (BEAKER) 140 meq/L 136-145 (test code = 381) POTASSIUM (BEAKER) 4.1 meq/L 3.5-5.1 (test code = 379) CHLORIDE (BEAKER) 109 meq/L 98-107 H (test code = 382) CO2 (BEAKER) (test 24 meq/L 22-29 code = 355) BLOOD UREA NITROGEN 3 mg/dL 7-21 L (BEAKER) (test code = 354) CREATININE (BEAKER) 0.61 mg/dL 0.57-1.25 (test code = 358) GLUCOSE RANDOM 127 mg/dL 70-105 H (BEAKER) (test code = 652) CALCIUM (BEAKER) 8.8 mg/dL 8.4-10.2 (test code = 697) EGFR (BEAKER) (test 152 mL/min/1.73 ESTIM ATED GFR IS code = 1092) sq m NOT ACCURATE CREATININE CLEARANCE IN PREDICTING GLOMERULAR FILTRATION RATE . ESTIMATED GFR I S NOT APPLICABLE FOR DIALYSIS PATIEN TS. [employer] Spray Unit Adjuster ID - ANA MBASIC METABOLIC [id number] 09:33:00 Test Item Value Reference Range Interpretation Comments SODIUM (BEAKER) 136 meq/L 136-145 (test code = 381) POTASSIUM (BEAKER) 3.7 meq/L 3.5-5.1 (test code = 379) CHLORIDE (BEAKER) 104 meq/L 98-107 (test code = 382) CO2 (BEAKER) (test 25 meq/L 22-29 code = 355) BLOOD UREA NITROGEN 3 mg/dL 7-21 L (BEAKER) (test code = 354) CREATININE (BEAKER) 0.61 mg/dL 0.57-1.25 (test code = 358) GLUCOSE RANDOM 99 mg/dL 70-105 (BEAKER) (test code = 652) CALCIUM (BEAKER) 8.8 mg/dL 8.4-10.2 (test code = 697) EGFR (BEAKER) (test 152 mL/min/1.73 ESTIM ATED GFR IS code = 1092) sq m NOT ACCURATE CREATININE CLEARANCE IN PREDICTING GLOMERULAR FILTRATION RATE . ESTIMATED GFR I S NOT APPLICABLE FOR DIALYSIS PATIEN TS. [employer] Unit Adjuster ID - IDALIA LBASIC METABOLIC [id number] 06:09:00 Test Item Value Reference Range Interpretation Comments SODIUM (BEAKER) 142 meq/L 136-145 (test code = 381) POTASSIUM (BEAKER) 3.0 meq/L 3.5-5.1 L (test code = 379) CHLORIDE (BEAKER) 110 meq/L 98-107 H (test code = 382) CO2 (BEAKER) (test 26 meq/L 22-29 code = 355) BLOOD UREA NITROGEN 2 mg/dL 7-21 L (BEAKER) (test code = 354) CREATININE (BEAKER) 0.59 mg/dL 0.57-1.25 (test code = 358) GLUCOSE RANDOM 125 mg/dL 70-105 H (BEAKER) (test code = 652) CALCIUM (BEAKER) 8.3 mg/dL 8.4-10.2 L (test code = 697) EGFR (BEAKER) (test 158 mL/min/1.73 ESTIM ATED GFR IS code = 1092) sq m NOT ACCURATE CREATININE CLEARANCE IN PREDICTING GLOMERULAR FILTRATION RATE . ESTIMATED GFR I S NOT APPLICABLE FOR DIALYSIS PATIEN TS. [employer] Unit Adjuster ID - EDASIType and screen, [id number] 15:44:00 Test Item Value Reference Range Interpretation Comments ABO/RH AUTOMATED (BEAKER) (test B POSITIVE code = 2260) Ab Scrn (test code = 890-4) NEGATIVE [facility] MET[facility]OL[facility] [id number] 07:04:00 Test Item Value Reference Range Interpretation Comments SODIUM (BEAKER) 142 meq/L 136-145 (test code = 381) POTASSIUM (BEAKER) 3.8 meq/L 3.5-5.1 (test code = 379) CHLORIDE (BEAKER) 109 meq/L 98-107 H (test code = 382) CO2 (BEAKER) (test 26 meq/L 22-29 code = 355) BLOOD UREA NITROGEN 4 mg/dL 7-21 L (BEAKER) (test code = 354) CREATININE (BEAKER) 0.58 mg/dL 0.57-1.25 (test code = 358) GLUCOSE RANDOM 89 mg/dL 70-105 (BEAKER) (test code = 652) CALCIUM (BEAKER) 8.5 mg/dL 8.4-10.2 (test code = 697) EGFR (BEAKER) (test 161 mL/min/1.73 ESTIM ATED GFR IS code = 1092) sq m NOT ACCURATE CREATININE CLEARANCE IN PREDICTING GLOMERULAR FILTRATION RATE . ESTIMATED GFR I S NOT APPLICABLE FOR DIALYSIS PATIEN TS. [employer] Unit Adjuster ID - NTPCBC W/PLT COUNT & AUTO [id number] 06:47:00 Test Item Value Reference Range Interpretation Comments WHITE BLOOD CELL COUNT (BEAKER) 3.9 K/ L 3.5-10.5 (test code = 775) RED BLOOD CELL COUNT (BEAKER) 3.88 M/ L 4.63-6.08 L (test code = 761) HEMOGLOBIN (BEAKER) (test code = 11.8 GM/DL 13.7-17.5 L 410) HEMATOCRIT (BEAKER) (test code = 35.1 % 40.1-51.0 L 411) MEAN CORPUSCULAR VOLUME (BEAKER) 90.5 fL 79.0-92.2 (test code = 753) MEAN CORPUSCULAR HEMOGLOBIN 30.4 pg 25.7-32.2 (BEAKER) (test code = 751) MEAN CORPUSCULAR HEMOGLOBIN CONC 33.6 GM/DL 32.3-36.5 (BEAKER) (test code = 752) RED CELL DISTRIBUTION WIDTH 14.7 % 11.6-14.4 H (BEAKER) (test code = 412) PLATELET COUNT (BEAKER) (test 159 K/CU MM 150-450 code = 756) MEAN PLATELET VOLUME (BEAKER) 9.5 fL 9.4-12.4 (test code = 754) NUCLEATED RED BLOOD CELLS 0 /100 WBC 0-0 (BEAKER) (test code = 413) NEUTROPHILS RELATIVE PERCENT 57 % (BEAKER) (test code = 429) LYMPHOCYTES RELATIVE PERCENT 34 % (BEAKER) (test code = 430) MONOCYTES RELATIVE PERCENT 6 % (BEAKER) (test code = 431) EOSINOPHILS RELATIVE PERCENT 2 % (BEAKER) (test code = 432) BASOPHILS RELATIVE PERCENT 1 % (BEAKER) (test code = 437) NEUTROPHILS ABSOLUTE COUNT 2.26 K/ L 1.78-5.38 (BEAKER) (test code = 670) LYMPHOCYTES ABSOLUTE COUNT 1.32 K/ L 1.32-3.57 (BEAKER) (test code = 414) MONOCYTES ABSOLUTE COUNT (BEAKER) 0.24 K/ L 0.30-0.82 L (test code = 415) EOSINOPHILS ABSOLUTE COUNT 0.06 K/ L 0.04-0.54 (BEAKER) (test code = 416) BASOPHILS ABSOLUTE COUNT (BEAKER) 0.04 K/ L 0.01-0.08 (test code = 417) IMMATURE GRANULOCYTES-RELATIVE 1 % 0-1 PERCENT (BEAKER) (test code = 2801) SARS-COV2/RT-PCR ([facility])2020-03-03 06:45:00 Test Item Value Reference Range Interpretation Comments SARS-COV2/RT-PCR (test Negative Not Detected, Negative, code = 0553781) See external report for linked test SARS-COV-2 PERFORMING LAB [facility] (test code = 9323735) Negative result for this test determines that SARS-CoV-2 RNA was not present in the specimen above the Limit of Detection (LOD). However, Negative results do not preclude SARS-CoV-2 infection and should not be used as the sole basis for treatment or patient management decisions. Negative results mustbe combined with clinical observations, patient history, and epidemiological information. A false negative result may occur if a specimen is improperly collected, transported or handled. A false negative result should be considered if patient's recent exposures or clinical presentation indicate that COVID-19 (SARS-CoV-2) is likely and diagnostic tests for other causes of illness are negative. Re-testing should be considered in cases of suspected false negatives.The limit of detection for this assay is 800 copies/mL.This SARS CoV-2 test is a real-time RT-PCR test intended for the qualitative detection of nucleic acid from SARS-CoV-2 in a nasopharyngeal swab specimen collected from individuals suspected of COVID-19 by their healthcare provider.This test has not been Food and Drug Administration (FDA) cleared or approved. This is a modified version of an approved [...] is revoked under Section 564(g) of the Act.Fact Sheet for Healthcare Providers:https://www.[employer]/sites/default/files/product/documents/Fact_Shee i_YU_Wpffuxmxh_Qqmb_XPON-BlE-7.pdfFact Sheet for Healthcare Patients:https://www.[employer]com/sites/default/files/product/ documents/Qzjw_Aodft_Dksdpzvs_Uepr_RXYC-VlK-4.pdfPerforming Laboratory:[facility], [place] [address]Wppqyvggmk and [id number] 15:00:00 Test Item Value Reference Range Interpretation Comments Hemoglobin (test code = 10.8 13.7- 17.5 GM/DL L 786-4) Hematocrit (test code = 32.9 % 40.1-51 L 4544-3) RADHA (test code = RADHA) [employer] Spr[employer] Unit Adjuster ID - [id number] Lab Interpretation (test Abnormal code = 33423-1) [facility] CenterHEMOGLOBIN AND [id number] 15:00:00 Test Item Value Reference Range Interpretation Comments HEMOGLOBIN (BEAKER) (test code = 10.8 GM/DL 13.7-17.5 L 410) HEMATOCRIT (BEAKER) (test code = 32.9 % 40.1-51.0 L 411) [employer] Spr[employer] Unit Adjuster ID - 6000BASIC METABOLIC [id number] 06:43:00 Test Item Value Reference Range Interpretation Comments SODIUM (BEAKER) 140 meq/L 136-145 (test code = 381) POTASSIUM (BEAKER) 3.8 meq/L 3.5-5.1 (test code = 379) CHLORIDE (BEAKER) 113 meq/L 98-107 H (test code = 382) CO2 (BEAKER) (test 24 meq/L 22-29 code = 355) BLOOD UREA NITROGEN 3 mg/dL 7-21 L (BEAKER) (test code = 354) CREATININE (BEAKER) 0.55 mg/dL 0.57-1.25 L (test code = 358) GLUCOSE RANDOM 89 mg/dL 70-105 (BEAKER) (test code = 652) CALCIUM (BEAKER) 7.7 mg/dL 8.4-10.2 L (test code = 697) EGFR (BEAKER) (test 172 mL/min/1.73 ESTIM ATED GFR IS code = 1092) sq m NOT ACCURATE CREATININE CLEARANCE IN PREDICTING GLOMERULAR FILTRATION RATE . ESTIMATED GFR I S NOT APPLICABLE FOR DIALYSIS PATIEN TS. [employer] Spr[employer] Unit Adjuster ID - DBCBC W/PLT COUNT & AUTO [id number] 06:22:00 Test Item Value Reference Range Interpretation Comments WHITE BLOOD CELL COUNT 2.8 K/ L 3.5-10.5 L (BEAKER) (test code = 775) RED BLOOD CELL COUNT 3.55 M/ L 4.63-6.08 L (BEAKER) (test code = 761) HEMOGLOBIN (BEAKER) 10.5 GM/DL 13.7-17.5 L (test code = 410) HEMATOCRIT (BEAKER) 32.0 % 40.1-51.0 L (test code = 411) MEAN CORPUSCULAR 90.1 fL 79.0-92.2 Discordant MCV VOLUME (BEAKER) (test result compared to code = 753) previous result ; clinical correl ation required. MEAN CORPUSCULAR 29.6 pg 25.7-32.2 HEMOGLOBIN (BEAKER) (test code = 751) MEAN CORPUSCULAR 32.8 GM/DL 32.3-36.5 HEMOGLOBIN CONC (BEAKER) (test code = 752) RED CELL DISTRIBUTION 14.6 % 11.6-14.4 H WIDTH (BEAKER) (test code = 412) PLATELET COUNT 154 K/CU MM 150-450 (BEAKER) (test code = 756) MEAN PLATELET VOLUME 9.3 fL 9.4-12.4 L (BEAKER) (test code = 754) NUCLEATED RED BLOOD 0 /100 WBC 0-0 CELLS (BEAKER) (test code = 413) NEUTROPHILS RELATIVE 58 % PERCENT (BEAKER) (test code = 429) LYMPHOCYTES RELATIVE 34 % PERCENT (BEAKER) (test code = 430) MONOCYTES RELATIVE 6 % PERCENT (BEAKER) (test code = 431) EOSINOPHILS RELATIVE 1 % PERCENT (BEAKER) (test code = 432) BASOPHILS RELATIVE 0 % PERCENT (BEAKER) (test code = 437) NEUTROPHILS ABSOLUTE 1.64 K/ L 1.78-5.38 L COUNT (BEAKER) (test code = 670) LYMPHOCYTES ABSOLUTE 0.97 K/ L 1.32-3.57 L COUNT (BEAKER) (test code = 414) MONOCYTES ABSOLUTE 0.18 K/ L 0.30-0.82 L COUNT (BEAKER) (test code = 415) EOSINOPHILS ABSOLUTE 0.03 K/ L 0.04-0.54 L COUNT (BEAKER) (test code = 416) BASOPHILS ABSOLUTE 0.01 K/ L 0.01-0.08 COUNT (BEAKER) (test code = 417) IMMATURE 0 % 0-1 GRANULOCYTES-RELATIVE PERCENT (BEAKER) (test code = 2801) BASIC METABOLIC [id number] 06:16:00 Test Item Value Reference Range Interpretation Comments SODIUM (BEAKER) 138 meq/L 136-145 (test code = 381) POTASSIUM (BEAKER) 3.2 meq/L 3.5-5.1 L (test code = 379) CHLORIDE (BEAKER) 105 meq/L 98-107 (test code = 382) CO2 (BEAKER) (test 25 meq/L 22-29 code = 355) BLOOD UREA NITROGEN 4 mg/dL 7-21 L (BEAKER) (test code = 354) CREATININE (BEAKER) 0.57 mg/dL 0.57-1.25 (test code = 358) GLUCOSE RANDOM 108 mg/dL 70-105 H (BEAKER) (test code = 652) CALCIUM (BEAKER) 8.1 mg/dL 8.4-10.2 L (test code = 697) EGFR (BEAKER) (test 165 mL/min/1.73 ESTIM ATED GFR IS code = 1092) sq m NOT ACCURATE CREATININE CLEARANCE IN PREDICTING GLOMERULAR FILTRATION RATE . ESTIMATED GFR I S NOT APPLICABLE FOR DIALYSIS PATIEN TS. [employer] Spr[employer] Unit Adjuster ID - EDASIProthrombin time/[id number] 05:55:00 Test Item Value Reference Range Interpretation Comments Protime (test code = 19.2 11.9- 14.2 H 5902-2) seconds INR (test code = 1.66 <=5.90 6301-6) RADHA (test code = RADHA) Effective 12/11/2018: PT Reference Range ChangeNew: 11.9-14.2 Previous: 11.7-14.7 RECOMMENDED COUMADIN/WARFARIN INR THERAPY RANGESSTANDARD DOSE: 2.0-3.0 Includes: PROPHYLAXIS for venous thrombosis, systemic embolization; TREATMENT for venous thrombosis and/or pulmonary embolus.HIGH RISK: Target INR is 2.5-3.5 for patients wiht mechanical heart valves. Lab Interpretation Abnormal (test code = 51586-3) [facility] CenterPROTHROMBIN TIME/[id number] 05:55:00 Test Item Value Reference Range Interpretation Comments PROTIME (BEAKER) (test code = 19.2 seconds 11.9-14.2 H 759) INR (BEAKER) (test code = 370) 1.66 <=5.90 Effective 12/11/2018: PT Reference Range ChangeNew: 11.9-14.2 Previous: 11.7- 14.7RECOMMENDED COUMADIN/WARFARIN INR THERAPY RANGESSTANDARD DOSE: 2.0-3.0 Includes: PROPHYLAXIS for venous thrombosis, systemic embolization; TREATMENT for venous thrombosis and/or pulmonary embolus.HIGH RISK: Target INR is2.5-3.5 for patients wiht mechanical heart valves.CBC W/PLT COUNT & AUTO [id number] 05:45:00 Test Item Value Reference Range Interpretation Comments WHITE BLOOD CELL COUNT (BEAKER) 3.5 K/ L 3.5-10.5 (test code = 775) RED BLOOD CELL COUNT (BEAKER) 4.03 M/ L 4.63-6.08 L (test code = 761) HEMOGLOBIN (BEAKER) (test code = 11.7 GM/DL 13.7-17.5 L 410) HEMATOCRIT (BEAKER) (test code = 34.7 % 40.1-51.0 L 411) MEAN CORPUSCULAR VOLUME (BEAKER) 86.1 fL 79.0-92.2 (test code = 753) MEAN CORPUSCULAR HEMOGLOBIN 29.0 pg 25.7-32.2 (BEAKER) (test code = 751) MEAN CORPUSCULAR HEMOGLOBIN CONC 33.7 GM/DL 32.3-36.5 (BEAKER) (test code = 752) RED CELL DISTRIBUTION WIDTH 14.0 % 11.6-14.4 (BEAKER) (test code = 412) PLATELET COUNT (BEAKER) (test 169 K/CU MM 150-450 code = 756) MEAN PLATELET VOLUME (BEAKER) 9.2 fL 9.4-12.4 L (test code = 754) NUCLEATED RED BLOOD CELLS 0 /100 WBC 0-0 (BEAKER) (test code = 413) NEUTROPHILS RELATIVE PERCENT 58 % (BEAKER) (test code = 429) LYMPHOCYTES RELATIVE PERCENT 32 % (BEAKER) (test code = 430) MONOCYTES RELATIVE PERCENT 8 % (BEAKER) (test code = 431) EOSINOPHILS RELATIVE PERCENT 2 % (BEAKER) (test code = 432) BASOPHILS RELATIVE PERCENT 0 % (BEAKER) (test code = 437) NEUTROPHILS ABSOLUTE COUNT 2.04 K/ L 1.78-5.38 (BEAKER) (test code = 670) LYMPHOCYTES ABSOLUTE COUNT 1.13 K/ L 1.32-3.57 L (BEAKER) (test code = 414) MONOCYTES ABSOLUTE COUNT (BEAKER) 0.28 K/ L 0.30-0.82 L (test code = 415) EOSINOPHILS ABSOLUTE COUNT 0.06 K/ L 0.04-0.54 (BEAKER) (test code = 416) BASOPHILS ABSOLUTE COUNT (BEAKER) 0.01 K/ L 0.01-0.08 (test code = 417) IMMATURE GRANULOCYTES-RELATIVE 0 % 0-1 PERCENT (BEAKER) (test code = 2801) SARS-COV2/RT-PCR ([facility])2020-02-29 13:49:00 Test Item Value Reference Range Interpretation Comments SARS-COV2/RT-PCR (test Negative Not Detected, Negative, code = 1275788) See external report for linked test SARS-COV-2 PERFORMING LAB [facility] (test code = 7435432) Negative result for this test determines that SARS-CoV-2 RNA was not present in the specimen above the Limit of Detection (LOD). However, Negative results do not preclude SARS-CoV-2 infection and should not be used as the sole basis for treatment or patient management decisions. Negative results mustbe combined with clinical observations, patient history, and epidemiological information. A false negative result may occur if a specimen is improperly collected, transported or handled. A false negative result should be considered if patient's recent exposures or clinical presentation indicate that COVID-19 (SARS-CoV-2) is likely and diagnostic tests for other causes of illness are negative. Re-testing should be considered in cases of suspected false negatives.The limit of detection for this assay is 800 copies/mL.This SARS CoV-2 test is a real-time RT-PCR test intended for the qualitative detection of nucleic acid from SARS-CoV-2 in a nasopharyngeal swab specimen collected from individuals suspected of COVID-19 by their healthcare provider.This test has not been Food and Drug Administration (FDA) cleared or approved. This is a modified version of an approved [...] is revoked under Section 564(g) of the Act.Fact Sheet for Healthcare Providers:https://www.[employer]/sites/default/files/product/documents/Fact_Shee x_PF_Vyvhefdpx_Kbvv_LSQT-CsL-5.pdfFact Sheet for Healthcare Patients:https://www.[employer]/sites/default/files/product/ documents/Lqmz_Dkthq_Gsgvbazm_Dcsg_NLHR-YkO-7.pdfPerforming Laboratory:[facility] [place], [place] [address]WHBCDGT FUNCTION [id number] 07:21:00 Test Item Value Reference Range Interpretation Comments TOTAL PROTEIN (BEAKER) (test code = 6.2 gm/dL 6.0-8.3 770) ALBUMIN (BEAKER) (test code = 1145) 3.6 g/dL 3.5-5.0 BILIRUBIN TOTAL (BEAKER) (test code 0.7 mg/dL 0.2-1.2 = 377) BILIRUBIN DIRECT (BEAKER) (test 0.3 mg/dL 0.1-0.5 code = 706) ALKALINE PHOSPHATASE (BEAKER) (test 135 U/L 40-150 code = 346) AST (SGOT) (BEAKER) (test code = 33 U/L 5-34 353) ALT (SGPT) (BEAKER) (test code = 62 U/L 6-55 H 347) [employer] Unit Adjuster ID - PIAYA LBASIC METABOLIC [id number] 07:21:00 Test Item Value Reference Range Interpretation Comments SODIUM (BEAKER) 139 meq/L 136-145 (test code = 381) POTASSIUM (BEAKER) 3.2 meq/L 3.5-5.1 L (test code = 379) CHLORIDE (BEAKER) 102 meq/L 98-107 (test code = 382) CO2 (BEAKER) (test 23 meq/L 22-29 code = 355) BLOOD UREA NITROGEN 12 mg/dL 7-21 (BEAKER) (test code = 354) CREATININE (BEAKER) 0.63 mg/dL 0.57-1.25 (test code = 358) GLUCOSE RANDOM 95 mg/dL 70-105 (BEAKER) (test code = 652) CALCIUM (BEAKER) 8.4 mg/dL 8.4-10.2 (test code = 697) EGFR (BEAKER) (test 147 mL/min/1.73 ESTIM ATED GFR IS code = 1092) sq m NOT ACCURATE CREATININE CLEARANCE IN PREDICTING GLOMERULAR FILTRATION RATE . ESTIMATED GFR I S NOT APPLICABLE FOR DIALYSIS PATIEN TS. [employer] Unit Adjuster ID - PIAYA LPROTHROMBIN TIME/[id number] 05:48:00 Test Item Value Reference Range Interpretation Comments PROTIME (BEAKER) (test code = 21.9 seconds 11.9-14.2 H 759) INR (BEAKER) (test code = 370) 1.97 <=5.90 Effective 12/11/2018: PT Reference Range ChangeNew: 11.9-14.2 Previous: 11.7- 14.7RECOMMENDED COUMADIN/WARFARIN INR THERAPY RANGESSTANDARD DOSE: 2.0-3.0 Includes: PROPHYLAXIS for venous thrombosis, systemic embolization; TREATMENT for venous thrombosis and/or pulmonary embolus.HIGH RISK: Target INR is2.5-3.5 for patients wiht mechanical heart valves.CBC W/PLT COUNT & AUTO [id number] 05:45:00 Test Item Value Reference Range Interpretation Comments WHITE BLOOD CELL COUNT 7.0 K/ L 3.5-10.5 (BEAKER) (test code = 775) RED BLOOD CELL COUNT 4.34 M/ L 4.63-6.08 L (BEAKER) (test code = 761) HEMOGLOBIN (BEAKER) 12.9 GM/DL 13.7-17.5 L DISCORDA NT HGB (test code = 410) RESULT COM PARED TO PREVIOUS RESULT ; CLINICAL CORREL ATION REQUIRED. HEMATOCRIT (BEAKER) 38.2 % 40.1-51.0 L (test code = 411) MEAN CORPUSCULAR 88.0 fL 79.0-92.2 VOLUME (BEAKER) (test code = 753) MEAN CORPUSCULAR 29.7 pg 25.7-32.2 HEMOGLOBIN (BEAKER) (test code = 751) MEAN CORPUSCULAR 33.8 GM/DL 32.3-36.5 HEMOGLOBIN CONC (BEAKER) (test code = 752) RED CELL DISTRIBUTION 14.3 % 11.6-14.4 WIDTH (BEAKER) (test code = 412) PLATELET COUNT 261 K/CU MM 150-450 (BEAKER) (test code = 756) MEAN PLATELET VOLUME 9.4 fL 9.4-12.4 (BEAKER) (test code = 754) NUCLEATED RED BLOOD 0 /100 WBC 0-0 CELLS (BEAKER) (test code = 413) NEUTROPHILS RELATIVE 63 % PERCENT (BEAKER) (test code = 429) LYMPHOCYTES RELATIVE 26 % PERCENT (BEAKER) (test code = 430) MONOCYTES RELATIVE 10 % PERCENT (BEAKER) (test code = 431) EOSINOPHILS RELATIVE 1 % PERCENT (BEAKER) (test code = 432) BASOPHILS RELATIVE 0 % PERCENT (BEAKER) (test code = 437) NEUTROPHILS ABSOLUTE 4.43 K/ L 1.78-5.38 COUNT (BEAKER) (test code = 670) LYMPHOCYTES ABSOLUTE 1.82 K/ L 1.32-3.57 COUNT (BEAKER) (test code = 414) MONOCYTES ABSOLUTE 0.67 K/ L 0.30-0.82 COUNT (BEAKER) (test code = 415) EOSINOPHILS ABSOLUTE 0.04 K/ L 0.04-0.54 COUNT (BEAKER) (test code = 416) BASOPHILS ABSOLUTE 0.03 K/ L 0.01-0.08 COUNT (BEAKER) (test code = 417) IMMATURE 0 % 0-1 GRANULOCYTES-RELATIVE PERCENT (BEAKER) (test code = 2801) ECG 12 [id number] 18:29:20Interface, External Ris In - 02/28/2020 6:29 PM CDTVentricular Rate 82 BPMAtrial Rate 82 BPMP-R Interval 140 msQRS Duration 94 msQ-T Interval 372 msQTC Calculation(Bazett) 434 msP [place]isle 44 degreesR [place] 51 degreesT [place] 54 degreesNormal sinus rhythmCannot rule out Anterior infarct , age undeterminedAbnormal ECG21 FEB 2020Old anterior infarct now suspectedConfirmed by MD TONIA, BEL (190) on 02/28/2020 6:29:15 [facility]/[id number] 17:57:00 Test Item Value Reference Range Interpretation Comments Color, UA (test code = Light Yellow 5778-6) Clarity, UA (test code Clear = 5767-9) Specific Eckerman, UA 1.011 1.001-1.035 (test code = 5811-5) pH, UA (test code = 6.5 5.0-8.0 5803-2) Protein, UA (test code Negative Negative = 67866-2) Glucose, UA (test code Negative Negative = 365) Ketones, UA (test code Negative Negative = 2514-8) Bilirubin, UA (test Negative Negative code = 04137-1) Blood, UA (test code = Negative Negative 10421-3) Nitrite, UA (test code Negative Negative = 5802-4) Leukocytes, UA (test Negative Negative code = 5799-2) Urobilinogen, UA (test 0.2 mg/dL 0.2-1 code = 03557-9) RBC, UA (test code = 0 /HPF 47299-2) WBC, UA (test code = <1 /HPF 5821-4) Mucus (test code = Many 8247-9) Squam Epithel, UA (test <1 /HPF code = 89110-6) Hyaline Casts, UA (test 3 /LPF code = 05012-9) Specimen Source (test code = 2795) RADHA (test code = RADHA) [employer] Unit Adjuster ID - [auto][employer] Spr[employer] Unit Adjuster ID - tech [facility] CenterURINALYSIS W/ [id number] 17:57:00 Test Item Value Reference Range Interpretation Comments COLOR (BEAKER) (test code = 470) Light Yellow CLARITY (BEAKER) (test code = Clear 469) SPECIFIC GRAVITY UA (BEAKER) 1.011 1.001-1.035 (test code = 468) PH UA (BEAKER) (test code = 467) 6.5 5.0-8.0 PROTEIN UA (BEAKER) (test code = Negative Negative 464) GLUCOSE UA (BEAKER) (test code = Negative Negative 365) KETONES UA (BEAKER) (test code = Negative Negative 371) BILIRUBIN UA (BEAKER) (test code Negative Negative = 462) BLOOD UA (BEAKER) (test code = Negative Negative 461) NITRITE UA (BEAKER) (test code = Negative Negative 465) LEUKOCYTE ESTERASE UA (BEAKER) Negative Negative (test code = 466) UROBILINOGEN UA (BEAKER) (test 0.2 mg/dL 0.2-1.0 code = 463) RBC UA (BEAKER) (test code = 0 /HPF 519) WBC UA (BEAKER) (test code = < /HPF 520) MUCUS (BEAKER) (test code = Many 1574) SQUAMOUS EPITHELIAL (BEAKER) < /HPF (test code = 516) HYALINE CASTS (BEAKER) (test 3 /LPF code = 514) SOURCE(BEAKER) (test code = 2795) [employer] Unit Adjuster ID - [auto][employer] Spr[employer] Unit Adjuster ID - techBASIC METABOLIC [id number] 17:36:00 Test Item Value Reference Range Interpretation Comments SODIUM (BEAKER) 139 meq/L 136-145 (test code = 381) POTASSIUM (BEAKER) 3.3 meq/L 3.5-5.1 L (test code = 379) CHLORIDE (BEAKER) 101 meq/L 98-107 (test code = 382) CO2 (BEAKER) (test 27 meq/L 22-29 code = 355) BLOOD UREA NITROGEN 11 mg/dL 7-21 (BEAKER) (test code = 354) CREATININE (BEAKER) 0.63 mg/dL 0.57-1.25 (test code = 358) GLUCOSE RANDOM 103 mg/dL 70-105 (BEAKER) (test code = 652) CALCIUM (BEAKER) 8.9 mg/dL 8.4-10.2 (test code = 697) EGFR (BEAKER) (test 147 mL/min/1.73 ESTIM ATED GFR IS code = 1092) sq m NOT ACCURATE CREATININE CLEARANCE IN PREDICTING GLOMERULAR FILTRATION RATE . ESTIMATED GFR I S NOT APPLICABLE FOR DIALYSIS PATIEN TS. [employer] Unit Adjuster ID - [id number] 17:34:00 Test Item Value Reference Range Interpretation Comments PROTIME (BEAKER) (test code = 23.4 seconds 11.9-14.2 H 759) INR (BEAKER) (test code = 370) 2.15 <=5.90 Effective 12/11/2018: PT Reference Range ChangeNew: 11.9-14.2 Previous: 11.7- 14.7RECOMMENDED COUMADIN/WARFARIN INR THERAPY RANGESSTANDARD DOSE: 2.0-3.0 Includes: PROPHYLAXIS for venous thrombosis, systemic embolization; TREATMENT for venous thrombosis and/or pulmonary embolus.HIGH RISK: Target INR is2.5-3.5 for patients wiht mechanical heart valves.[id number] 12:36:00 Test Item Value Reference Range Interpretation Comments MAGNESIUM (BEAKER) 2.2 mg/dL 1.6-2.6 Specimen markedly (test code = 627) hemolyzed [employer] Unit Adjuster ID - [id number], [id number] 06:02:00Reason for exam:->abdominal painWhat is the patient's sedation requirement?->No SedationFINAL REPORT CT, ABDOMEN \\T\\ PELVIS, WITH IV CONTRAST CLINICAL HISTORY: Abdominal pain, acute, nonlocalizedabdominal pain TECHNIQUE: Multiple axial images of the abdomen and pelvis were performed after the uncomplicated administration of IV contrast. Coronal and sagittal reformats obtained. Oral contrast was not administered. This exam was performed according to our departmental dose-optimization program, which includes automated exposure control, adjustment of the mA and/or kV according to patient size and/or use of the iterative reconstruction technique. COMPARISON:None. FINDINGS:LOWER CHEST:No acute process. LIVER: Hepatomegaly and hepatic steatosis.BILIARY SYSTEM: No abnormal ductal dilatation.PANCREAS: Mild peripancreatic inflammatory changes. Pancreas enhances homogeneously without evidence of necrosis. SPLEEN: No acute findings.ADRENAL GLANDS: Unremarkable.KIDNEYS URETERS: No acute findings.URINARY BLADDER: Moderately distended.REPRODUCTIVE ORGANS: No acute findings. GASTROINTESTINAL/MESENTERY: No bowel obstruction or abnormal wall thickening. Small hiatal hernia.PERITONEUM/RETROPERITONEUM: Distal large bowel is nondistended with a mild circumferential wall thickening. No bowel obstruction. There is a small hiatal hernia. VESSELS: No acute findings. LYMPH NODES: No abdominal or pelvic lymphadenopathy.SOFT TISSUES: No acute findings.BONES: No suspicious osseouslesion. Other: None IMPRESSION:Increased. Pancreatic inflammatory changes suggesting acute pancreatitis. Distal large bowel circumferential wall thickening suggestive of nonspecific colitis versus nond istention. Small hiatal hernia Hepatomegaly and hepatic steatosis. Signed: Ruben Fitzgerald MDReport Verified Date/Time: 02/28/2020 06:02:32 COMPREHENSIVE METABOLIC [id number] 03:44:00 Test Item Value Reference Range Interpretation Comments TOTAL PROTEIN 9.2 gm/dL 6.0-8.3 H (BEAKER) (test code = 770) ALBUMIN (BEAKER) 4.7 g/dL 3.5-5.0 (test code = 1145) ALKALINE PHOSPHATASE 119 U/L 40-150 (BEAKER) (test code = 346) BILIRUBIN TOTAL 0.2 mg/dL 0.2-1.2 (BEAKER) (test code = 377) SODIUM (BEAKER) (test 144 meq/L 136-145 code = 381) POTASSIUM (BEAKER) 5.5 meq/L 3.5-5.1 H (test code = 379) CHLORIDE (BEAKER) 105 meq/L 98-107 (test code = 382) CO2 (BEAKER) (test 24 meq/L 22-29 code = 355) BLOOD UREA NITROGEN 12 mg/dL 7-21 (BEAKER) (test code = 354) CREATININE (BEAKER) 0.79 mg/dL 0.57-1.25 (test code = 358) GLUCOSE RANDOM 114 mg/dL 70-105 H (BEAKER) (test code = 652) CALCIUM (BEAKER) 9.3 mg/dL 8.4-10.2 (test code = 697) AST (SGOT) (BEAKER) 77 U/L 5-34 H (test code = 353) ALT (SGPT) (BEAKER) 100 U/L 6-55 H (test code = 347) EGFR (BEAKER) (test 113 ESTIMATE D GFR IS code = 1092) mL/min/1.73 sq NOT ACCURA TE m CREATININE CLEARANCE IN PREDICTING GLOMERULAR FILTRATION RATE . ESTIMATED GFR I S NOT APPLICABLE FOR DIALYSIS PATIEN TS. [employer] Unit Adjuster ID - [id number] 03:44:00 Test Item Value Reference Range Interpretation Comments LIPASE (BEAKER) (test code = 749) 253 U/L 8-78 H [employer] Unit Adjuster ID - DBCBC W/PLT COUNT & AUTO [id number] 02:54:00 Test Item Value Reference Range Interpretation Comments WHITE BLOOD CELL COUNT (BEAKER) 7.8 K/ L 3.5-10.5 (test code = 775) RED BLOOD CELL COUNT (BEAKER) 5.44 M/ L 4.63-6.08 (test code = 761) HEMOGLOBIN (BEAKER) (test code = 16.2 GM/DL 13.7-17.5 410) HEMATOCRIT (BEAKER) (test code = 48.9 % 40.1-51.0 411) MEAN CORPUSCULAR VOLUME (BEAKER) 89.9 fL 79.0-92.2 (test code = 753) MEAN CORPUSCULAR HEMOGLOBIN 29.8 pg 25.7-32.2 (BEAKER) (test code = 751) MEAN CORPUSCULAR HEMOGLOBIN CONC 33.1 GM/DL 32.3-36.5 (BEAKER) (test code = 752) RED CELL DISTRIBUTION WIDTH 14.7 % 11.6-14.4 H (BEAKER) (test code = 412) PLATELET COUNT (BEAKER) (test 459 K/CU MM 150-450 H code = 756) MEAN PLATELET VOLUME (BEAKER) 8.7 fL 9.4-12.4 L (test code = 754) NUCLEATED RED BLOOD CELLS 0 /100 WBC 0-0 (BEAKER) (test code = 413) NEUTROPHILS RELATIVE PERCENT 60 % (BEAKER) (test code = 429) LYMPHOCYTES RELATIVE PERCENT 31 % (BEAKER) (test code = 430) MONOCYTES RELATIVE PERCENT 8 % (BEAKER) (test code = 431) EOSINOPHILS RELATIVE PERCENT 0 % (BEAKER) (test code = 432) BASOPHILS RELATIVE PERCENT 1 % (BEAKER) (test code = 437) NEUTROPHILS ABSOLUTE COUNT 4.69 K/ L 1.78-5.38 (BEAKER) (test code = 670) LYMPHOCYTES ABSOLUTE COUNT 2.42 K/ L 1.32-3.57 (BEAKER) (test code = 414) MONOCYTES ABSOLUTE COUNT (BEAKER) 0.60 K/ L 0.30-0.82 (test code = 415) EOSINOPHILS ABSOLUTE COUNT 0.00 K/ L 0.04-0.54 L (BEAKER) (test code = 416) BASOPHILS ABSOLUTE COUNT (BEAKER) 0.04 K/ L 0.01-0.08 (test code = 417) IMMATURE GRANULOCYTES-RELATIVE 1 % 0-1 PERCENT (BEAKER) (test code = 2801) MISCELLANEOUS LAB [id number] 12:04:00 Test Item Value Reference Range Interpretation Comments SCAN RESULT (test code = 7646890) [id number] 12:04:00Scan ResultQUEST NON-INTERFACED LABCHI [id number] 05:52:00 Test Item Value Reference Range Interpretation Comments MAGNESIUM (BEAKER) (test code = 1.6 mg/dL 1.6-2.6 627) [employer] Unit Adjuster ID - DBBASIC METABOLIC [id number] 05:52:00 Test Item Value Reference Range Interpretation Comments SODIUM (BEAKER) 141 meq/L 136-145 (test code = 381) POTASSIUM (BEAKER) 3.6 meq/L 3.5-5.1 (test code = 379) CHLORIDE (BEAKER) 111 meq/L 98-107 H (test code = 382) CO2 (BEAKER) (test 25 meq/L 22-29 code = 355) BLOOD UREA NITROGEN 4 mg/dL 7-21 L (BEAKER) (test code = 354) CREATININE (BEAKER) 0.60 mg/dL 0.57-1.25 (test code = 358) GLUCOSE RANDOM 100 mg/dL 70-105 (BEAKER) (test code = 652) CALCIUM (BEAKER) 8.1 mg/dL 8.4-10.2 L (test code = 697) EGFR (BEAKER) (test 155 mL/min/1.73 ESTIM ATED GFR IS code = 1092) sq m NOT ACCURATE CREATININE CLEARANCE IN PREDICTING GLOMERULAR FILTRATION RATE . ESTIMATED GFR I S NOT APPLICABLE FOR DIALYSIS PATIEN TS. [employer] Unit Adjuster ID - DBHEPATIC FUNCTION [id number] 05:52:00 Test Item Value Reference Range Interpretation Comments TOTAL PROTEIN (BEAKER) (test code = 6.2 gm/dL 6.0-8.3 770) ALBUMIN (BEAKER) (test code = 1145) 3.6 g/dL 3.5-5.0 BILIRUBIN TOTAL (BEAKER) (test code 0.1 mg/dL 0.2-1.2 L = 377) BILIRUBIN DIRECT (BEAKER) (test 0.2 mg/dL 0.1-0.5 code = 706) ALKALINE PHOSPHATASE (BEAKER) (test 76 U/L 40-150 code = 346) AST (SGOT) (BEAKER) (test code = 124 U/L 5-34 H 353) ALT (SGPT) (BEAKER) (test code = 168 U/L 6-55 H 347) [employer] Unit Adjuster ID - DBPROTHROMBIN [id number] 05:36:00 Test Item Value Reference Range Interpretation Comments PROTIME (BEAKER) (test code = 16.7 seconds 11.9-14.2 H 759) INR (BEAKER) (test code = 370) 1.4 <=5.9 Effective 12/11/2018: PT Reference Range ChangeNew: 11.9-14.2 Previous: 11.7- 14.7RECOMMENDED COUMADIN/WARFARIN INR THERAPY RANGESSTANDARD DOSE: 2.0-3.0 Includes: PROPHYLAXIS for venous thrombosis, systemic embolization; TREATMENT for venous thrombosis and/or pulmonary embolus.HIGH RISK: Target INR is2.5-3.5 for patients wiht mechanical heart valves.CBC W/PLT COUNT & AUTO [id number] 05:18:00 Test Item Value Reference Range Interpretation Comments WHITE BLOOD CELL COUNT (BEAKER) 3.1 K/ L 3.5-10.5 L (test code = 775) RED BLOOD CELL COUNT (BEAKER) 3.80 M/ L 4.63-6.08 L (test code = 761) HEMOGLOBIN (BEAKER) (test code = 11.0 GM/DL 13.7-17.5 L 410) HEMATOCRIT (BEAKER) (test code = 35.0 % 40.1-51.0 L 411) MEAN CORPUSCULAR VOLUME (BEAKER) 92.1 fL 79.0-92.2 (test code = 753) MEAN CORPUSCULAR HEMOGLOBIN 28.9 pg 25.7-32.2 (BEAKER) (test code = 751) MEAN CORPUSCULAR HEMOGLOBIN CONC 31.4 GM/DL 32.3-36.5 L (BEAKER) (test code = 752) RED CELL DISTRIBUTION WIDTH 14.1 % 11.6-14.4 (BEAKER) (test code = 412) PLATELET COUNT (BEAKER) (test 119 K/CU MM 150-450 L code = 756) MEAN PLATELET VOLUME (BEAKER) 10.1 fL 9.4-12.4 (test code = 754) NUCLEATED RED BLOOD CELLS 0 /100 WBC 0-0 (BEAKER) (test code = 413) NEUTROPHILS RELATIVE PERCENT 48 % (BEAKER) (test code = 429) LYMPHOCYTES RELATIVE PERCENT 40 % (BEAKER) (test code = 430) MONOCYTES RELATIVE PERCENT 10 % (BEAKER) (test code = 431) EOSINOPHILS RELATIVE PERCENT 0 % (BEAKER) (test code = 432) BASOPHILS RELATIVE PERCENT 1 % (BEAKER) (test code = 437) NEUTROPHILS ABSOLUTE COUNT 1.46 K/ L 1.78-5.38 L (BEAKER) (test code = 670) LYMPHOCYTES ABSOLUTE COUNT 1.22 K/ L 1.32-3.57 L (BEAKER) (test code = 414) MONOCYTES ABSOLUTE COUNT (BEAKER) 0.31 K/ L 0.30-0.82 (test code = 415) EOSINOPHILS ABSOLUTE COUNT 0.01 K/ L 0.04-0.54 L (BEAKER) (test code = 416) BASOPHILS ABSOLUTE COUNT (BEAKER) 0.02 K/ L 0.01-0.08 (test code = 417) IMMATURE GRANULOCYTES-RELATIVE 2 % 0-1 H PERCENT (BEAKER) (test code = 2801) [id number] 06:55:00 Test Item Value Reference Range Interpretation Comments MAGNESIUM (BEAKER) (test code = 1.4 mg/dL 1.6-2.6 L 627) [employer] Unit Adjuster ID - ANA EPATIC FUNCTION [id number] 06:55:00 Test Item Value Reference Range Interpretation Comments TOTAL PROTEIN (BEAKER) (test code = 6.6 gm/dL 6.0-8.3 770) ALBUMIN (BEAKER) (test code = 1145) 3.8 g/dL 3.5-5.0 BILIRUBIN TOTAL (BEAKER) (test code 0.2 mg/dL 0.2-1.2 = 377) BILIRUBIN DIRECT (BEAKER) (test 0.2 mg/dL 0.1-0.5 code = 706) ALKALINE PHOSPHATASE (BEAKER) (test 83 U/L 40-150 code = 346) AST (SGOT) (BEAKER) (test code = 71 U/L 5-34 H 353) ALT (SGPT) (BEAKER) (test code = 130 U/L 6-55 H 347) [employer] Unit Adjuster ID - ANA MBASIC METABOLIC [id number] 06:55:00 Test Item Value Reference Range Interpretation Comments SODIUM (BEAKER) 137 meq/L 136-145 (test code = 381) POTASSIUM (BEAKER) 4.3 meq/L 3.5-5.1 (test code = 379) CHLORIDE (BEAKER) 108 meq/L 98-107 H (test code = 382) CO2 (BEAKER) (test 22 meq/L 22-29 code = 355) BLOOD UREA NITROGEN 11 mg/dL 7-21 (BEAKER) (test code = 354) CREATININE (BEAKER) 0.62 mg/dL 0.57-1.25 (test code = 358) GLUCOSE RANDOM 113 mg/dL 70-105 H (BEAKER) (test code = 652) CALCIUM (BEAKER) 8.8 mg/dL 8.4-10.2 (test code = 697) EGFR (BEAKER) (test 149 mL/min/1.73 ESTIM ATED GFR IS code = 1092) sq m NOT ACCURATE CREATININE CLEARANCE IN PREDICTING GLOMERULAR FILTRATION RATE . ESTIMATED GFR I S NOT APPLICABLE FOR DIALYSIS PATIEN TS. [employer] Unit Adjuster ID - ANA MCBC W/PLT COUNT & AUTO [id number] 06:02:00 Test Item Value Reference Range Interpretation Comments WHITE BLOOD CELL COUNT (BEAKER) 5.0 K/ L 3.5-10.5 (test code = 775) RED BLOOD CELL COUNT (BEAKER) 4.05 M/ L 4.63-6.08 L (test code = 761) HEMOGLOBIN (BEAKER) (test code = 12.0 GM/DL 13.7-17.5 L 410) HEMATOCRIT (BEAKER) (test code = 37.5 % 40.1-51.0 L 411) MEAN CORPUSCULAR VOLUME (BEAKER) 92.6 fL 79.0-92.2 H (test code = 753) MEAN CORPUSCULAR HEMOGLOBIN 29.6 pg 25.7-32.2 (BEAKER) (test code = 751) MEAN CORPUSCULAR HEMOGLOBIN CONC 32.0 GM/DL 32.3-36.5 L (BEAKER) (test code = 752) RED CELL DISTRIBUTION WIDTH 14.3 % 11.6-14.4 (BEAKER) (test code = 412) PLATELET COUNT (BEAKER) (test 123 K/CU MM 150-450 L code = 756) MEAN PLATELET VOLUME (BEAKER) 10.5 fL 9.4-12.4 (test code = 754) NUCLEATED RED BLOOD CELLS 0 /100 WBC 0-0 (BEAKER) (test code = 413) NEUTROPHILS RELATIVE PERCENT 64 % (BEAKER) (test code = 429) LYMPHOCYTES RELATIVE PERCENT 25 % (BEAKER) (test code = 430) MONOCYTES RELATIVE PERCENT 10 % (BEAKER) (test code = 431) EOSINOPHILS RELATIVE PERCENT 0 % (BEAKER) (test code = 432) BASOPHILS RELATIVE PERCENT 0 % (BEAKER) (test code = 437) NEUTROPHILS ABSOLUTE COUNT 3.19 K/ L 1.78-5.38 (BEAKER) (test code = 670) LYMPHOCYTES ABSOLUTE COUNT 1.26 K/ L 1.32-3.57 L (BEAKER) (test code = 414) MONOCYTES ABSOLUTE COUNT (BEAKER) 0.49 K/ L 0.30-0.82 (test code = 415) EOSINOPHILS ABSOLUTE COUNT 0.02 K/ L 0.04-0.54 L (BEAKER) (test code = 416) BASOPHILS ABSOLUTE COUNT (BEAKER) 0.02 K/ L 0.01-0.08 (test code = 417) IMMATURE GRANULOCYTES-RELATIVE 1 % 0-1 PERCENT (BEAKER) (test code = 2801) PROTHROMBIN [id number] 05:52:00 Test Item Value Reference Range Interpretation Comments PROTIME (BEAKER) (test code = 15.1 seconds 11.9-14.2 H 759) INR (BEAKER) (test code = 370) 1.2 <=5.9 Effective 12/11/2018: PT Reference Range ChangeNew: 11.9-14.2 Previous: 11.7- 14.7RECOMMENDED COUMADIN/WARFARIN INR THERAPY RANGESSTANDARD DOSE: 2.0-3.0 Includes: PROPHYLAXIS for venous thrombosis, systemic embolization; TREATMENT for venous thrombosis and/or pulmonary embolus.HIGH RISK: Target INR is2.5-3.5 for patients wiht mechanical heart valves.CORTISOL,60 [id number] 22:25:00 Test Item Value Reference Range Interpretation Comments Cortisol, Baseline 8.8 mcg/dL (test code = 05161-1) Cortisol 30 minute 18.8 mcg/dL (test code = 59757-5) Cortisol, 60 22.6 ug/dL Minute (test code = 35704-0) RADHA (test code = ACTH STIMULATION TEST RADHA) INTERPRETATION GUIDELINES(Synonyms: Cortrosyn Test, Cosyntropin or Corticotropin Stimulation Test) [...] (<or=34 mcg/dL) and high ACTH response (>9mcg/dL) 2. Intermediate Survival: Low basal cortisol (<34 mcg/dL) and low response to ACTH (<or=9 mcg/dL) OR High basal cortisol (>34 mcg/dL) or high ACTH response (>9 mcg/dL) 3. Poor Survival: High basal cortisol (>34 mcg/dL) and [...] Policy and Procedure Section on The Source. [employer] Unit Adjuster ID - SRINATHMANUELShan VIGIL [facility]isCORTISOL,60 [id number] 22:25:00 Test Item Value Reference Range Interpretation Comments CORTISOL BASELINE NETWORKED 8.8 mcg/dL (BEAKER) (test code = 2307) CORTISOL 30 MINUTE NETWORKED 18.8 mcg/dL (BEAKER) (test code = 2308) CORTISOL, 60 MINUTE (BEAKER) 22.6 ug/dL (test code = 1805) ACTH STIMULATION TEST INTERPRETATION GUIDELINES(Synonyms: Cortrosyn Test, Cosyntropin or Corticotropin Stimulation Test)Adenocorticotropic hormone (ACTH)is a tropic hormone, made in the pituitary gland, which travels trhough the bloodstream and stimulates the cortex of the adrenal glands to release cortisol. Cortisol is a primary hormone, which aids the body's metabolism of fats, carbohydrates, and protein as well as sodium and potassium regulation.ACTH Stimulation Test: Exogenous administrationof biologically active ACTH stimulates the secretion of cortisol from the adrenal gland. This test is used to evaluate adrenal function by measuring cortisol levels at baseline and at 30 and 60 minutesafter the administration of 250 micrograms of cosyntropin (Cortrosyn). Patients who have received exogenous corticosteroids immediately prior to performing the ACTH Stimulation Test will often have elevated baseline cortisol levels, which may lead to erroneous interpretation of test results. The notable exception is with dexamethasone.Normal Response: An increase in cortisol after stimulation by ACTHis normal. Post-stimulation cortisol concentration should be greater than 20 mcg/dL or the rate of rise from baseline cortisol should be greater than or equal to 9 mcg/dL.Patients with sepsis or septicshock: According to a study by Shellie et al (CORBIN 2000,283(8):1038-45), the ACTH Stimulation Test provides important prognostic information. This study defined 3 groups of patients with sepsis or septic shock: 1. Good Survival: Low basal cortisol (<or=34 mcg/dL) and high ACTH response (>9mcg/dL) 2. Intermediate Survival: Low basal cortisol (<34 mcg/dL) and low response to ACTH (<or=9 mcg/dL) OR High basal cortisol (>34 mcg/dL) or high ACTH response (>9 mcg/dL) 3.Poor Survival: High basal cortisol (>34 mcg/dL) and low ACTH response (<or=9 mcg/dL).Treatment of patients with relative adrenal dysfunction may be indicated based on test results and the cli nical condition of the patient. Additional information, including treatment recommendations, is available in critically ill patients, approved by the Pharmacy, Nutrition, and Therapeutics Committee on 06/24/2004 and available through the Pharmacy Policy and Procedure Section on The Source.[employer] Spr[employer] Unit Adjuster ID - GABRIEL,30 [id number] 22:03:00 Test Item Value Reference Range Interpretation Comments Cortisol, Baseline 8.8 mcg/dL (test code = 38887-0) Cortisol, 30 18.8 ug/dL Minute (test code = 97360-3) RADHA (test code = ACTH STIMULATION TEST RADHA) INTERPRETATION GUIDELINES(Synonyms: Cortrosyn Test, Cosyntropin or Corticotropin Stimulation Test) [...] a study by Shellie et al (CORBIN 2000,283(8):4239-45), the ACTH Stimulation Test provides important prognostic information. This study defined 3 groups of patients with sepsis or septic shock: 1. Good Survival: Low basal cortisol (<or=34 mcg/dL) and high ACTH response (>9mcg/dL) 2. Intermediate Survival: Low basal cortisol (<34 mcg/dL) and low response to ACTH (<or=9 mcg/dL) OR High basal cortisol (>34 mcg/dL) or high ACTH response (>9 mcg/dL) 3. Poor Survival: High basal cortisol (>34 mcg/dL) and [...] Policy and Procedure Section on The Source. [employer] Spr[employer] Unit Adjuster ID - RICHIE [facility],30 [id number] 22:03:00 Test Item Value Reference Range Interpretation Comments CORTISOL BASELINE NETWORKED 8.8 mcg/dL (BEAKER) (test code = 2307) CORTISOL, 30 MINUTE (BEAKER) (test 18.8 ug/dL code = 1804) ACTH STIMULATION TEST INTERPRETATION GUIDELINES(Synonyms: Cortrosyn Test, Cosyntropin or Corticotropin Stimulation Test)Adenocorticotropic hormone (ACTH)is a tropic hormone, made in the pituitary gland, which travels trhough the bloodstream and stimulates the cortex of the adrenal glands to release cortisol. Cortisol is a primary hormone, which aids the body's metabolism of fats, carbohydrates, and protein as well as sodium and potassium regulation.ACTH Stimulation Test: Exogenous administrationof biologically active ACTH stimulates the secretion of cortisol from the adrenal gland. This test is used to evaluate adrenal function by measuring cortisol levels at baseline and at 30 and 60 minutesafter the administration of 250 micrograms of cosyntropin (Cortrosyn). Patients who have received exogenous corticosteroids immediately prior to performing the ACTH Stimulation Test will often have elevated baseline cortisol levels, which may lead to erroneous interpretation of test results. The notable exception is with dexamethasone.Normal Response: An increase in cortisol after stimulation by ACTHis normal. Post-stimulation cortisol concentration should be greater than 20 mcg/dL or the rate of rise from baseline cortisol should be greater than or equal to 9 mcg/dL.Patients with sepsis or septicshock: According to a study by Shellie et al (CORBIN 2000,283(8):4512-45), the ACTH Stimulation Test provides important prognostic information. This study defined 3 groups of patients with sepsis or septic shock: 1. Good Survival: Low basal cortisol (<or=34 mcg/dL) and high ACTH response (>9mcg/dL) 2. Intermediate Survival: Low basal cortisol (<34 mcg/dL) and low response to ACTH (<or=9 mcg/dL) OR High basal cortisol (>34 mcg/dL) or high ACTH response (>9 mcg/dL) 3.Poor Survival: High basal cortisol (>34 mcg/dL) and low ACTH response (<or=9 mcg/dL).Treatment of patients with relative adrenal dysfunction may be indicated based on test results and the cli nical condition of the patient. Additional information, including treatment recommendations, is available in critically ill patients, approved by the Pharmacy, Nutrition, and Therapeutics Committee on 06/24/2004 and available through the Pharmacy Policy and Procedure Section on The Source.[employer] Spr[employer] Unit Adjuster ID - SRINATHIANGCFERNY,[id number] 21:04:00 Test Item Value Reference Range Interpretation Comments Cortisol, Baseline 8.8 ug/dL (test code = 1803) RADHA (test code = ACTH STIMULATION TEST RADHA) INTERPRETATION GUIDELINES(Synonyms: Cortrosyn Test, Cosyntropin or Corticotropin Stimulation Test) [...] a study by Shellie et al (CORBIN 2000,283(8):4632-45), the ACTH Stimulation Test provides important prognostic information. This study defined 3 groups of patients with sepsis or septic shock: 1. Good Survival: Low basal cortisol (<or=34 mcg/dL) and high ACTH response (>9mcg/dL) 2. Intermediate Survival: Low basal cortisol (<34 mcg/dL) and low response to ACTH (<or=9 mcg/dL) OR High basal cortisol (>34 mcg/dL) or high ACTH response (>9 mcg/dL) 3. Poor Survival: High basal cortisol (>34 mcg/dL) and [...] Policy and Procedure Section on The Source. [employer] Spr[employer] Unit Adjuster ID - ROSIANG [facility]ORT[facility],[id number] 21:04:00 Test Item Value Reference Range Interpretation Comments CORTISOL, BASELINE (BEAKER) (test 8.8 ug/dL code = 1803) ACTH STIMULATION TEST INTERPRETATION GUIDELINES(Synonyms: Cortrosyn Test, Cosyntropin or Corticotropin Stimulation Test)Adenocorticotropic hormone (ACTH)is a tropic hormone, made in the pituitary gland, which travels trhough the bloodstream and stimulates the cortex of the adrenal glands to release cortisol. Cortisol is a primary hormone, which aids the body's metabolism of fats, carbohydrates, and protein as well as sodium and potassium regulation.ACTH Stimulation Test: Exogenous administrationof biologically active ACTH stimulates the secretion of cortisol from the adrenal gland. This test is used to evaluate adrenal function by measuring cortisol levels at baseline and at 30 and 60 minutesafter the administration of 250 micrograms of cosyntropin (Cortrosyn). Patients who have received exogenous corticosteroids immediately prior to performing the ACTH Stimulation Test will often have elevated baseline cortisol levels, which may lead to erroneous interpretation of test results. The notable exception is with dexamethasone.Normal Response: An increase in cortisol after stimulation by ACTHis normal. Post-stimulation cortisol concentration should be greater than 20 mcg/dL or the rate of rise from baseline cortisol should be greater than or equal to 9 mcg/dL.Patients with sepsis or septicshock: According to a study by Shellie et al (CORBIN 2000,283(8):8419-61), the ACTH Stimulation Test provides important prognostic information. This study defined 3 groups of patients with sepsis or septic shock: 1. Good Survival: Low basal cortisol (<or=34 mcg/dL) and high ACTH response (>9mcg/dL) 2. Intermediate Survival: Low basal cortisol (<34 mcg/dL) and low response to ACTH (<or=9 mcg/dL) OR High basal cortisol (>34 mcg/dL) or high ACTH response (>9 mcg/dL) 3.Poor Survival: High basal cortisol (>34 mcg/dL) and low ACTH response (<or=9 mcg/dL).Treatment of patients with relative adrenal dysfunction may be indicated based on test results and the cli nical condition of the patient. Additional information, including treatment recommendations, is available in critically ill patients, approved by the Pharmacy, Nutrition, and Therapeutics Committee on 06/24/2004 and available through the Pharmacy Policy and Procedure Section on The Source.[employer] Spray Unit Adjuster ID - [employer]IAN[employer] METABOLIC [id number] 18:56:00 Test Item Value Reference Range Interpretation Comments SODIUM (BEAKER) 141 meq/L 136-145 (test code = 381) POTASSIUM (BEAKER) 4.0 meq/L 3.5-5.1 (test code = 379) CHLORIDE (BEAKER) 116 meq/L 98-107 H (test code = 382) CO2 (BEAKER) (test 18 meq/L 22-29 L code = 355) BLOOD UREA NITROGEN 10 mg/dL 7-21 (BEAKER) (test code = 354) CREATININE (BEAKER) 0.57 mg/dL 0.57-1.25 (test code = 358) GLUCOSE RANDOM 103 mg/dL 70-105 (BEAKER) (test code = 652) CALCIUM (BEAKER) 7.4 mg/dL 8.4-10.2 L (test code = 697) EGFR (BEAKER) (test 165 mL/min/1.73 ESTIM ATED GFR IS code = 1092) sq m NOT ACCURATE CREATININE CLEARANCE IN PREDICTING GLOMERULAR FILTRATION RATE . ESTIMATED GFR I S NOT APPLICABLE FOR DIALYSIS PATIEN TS. [employer] Spr[employer] Unit Adjuster ID - [employer] METABOLIC [id number] 11:36:00 Test Item Value Reference Range Interpretation Comments SODIUM (BEAKER) 137 meq/L 136-145 (test code = 381) POTASSIUM (BEAKER) 6.9 meq/L 3.5-5.1 HH (test code = 379) CHLORIDE (BEAKER) 112 meq/L 98-107 H (test code = 382) CO2 (BEAKER) (test 22 meq/L 22-29 code = 355) BLOOD UREA NITROGEN 9 mg/dL 7-21 (BEAKER) (test code = 354) CREATININE (BEAKER) 0.63 mg/dL 0.57-1.25 (test code = 358) GLUCOSE RANDOM 91 mg/dL 70-105 (BEAKER) (test code = 652) CALCIUM (BEAKER) 8.9 mg/dL 8.4-10.2 (test code = 697) EGFR (BEAKER) (test 147 mL/min/1.73 ESTIM ATED GFR IS code = 1092) sq m NOT ACCURATE CREATININE CLEARANCE IN PREDICTING GLOMERULAR FILTRATION RATE . ESTIMATED GFR I S NOT APPLICABLE FOR DIALYSIS PATIEN TS. [employer] Spr[employer] Unit Adjuster ID - [id number] 05:35:00 Test Item Value Reference Range Interpretation Comments MAGNESIUM (BEAKER) (test code = 1.7 mg/dL 1.6-2.6 627) [employer] Spr[employer] Unit Adjuster ID - ANA MBASIC METABOLIC [id number] 05:35:00 Test Item Value Reference Range Interpretation Comments SODIUM (BEAKER) 138 meq/L 136-145 (test code = 381) POTASSIUM (BEAKER) 5.5 meq/L 3.5-5.1 H (test code = 379) CHLORIDE (BEAKER) 108 meq/L 98-107 H (test code = 382) CO2 (BEAKER) (test 23 meq/L 22-29 code = 355) BLOOD UREA NITROGEN 10 mg/dL 7-21 (BEAKER) (test code = 354) CREATININE (BEAKER) 0.61 mg/dL 0.57-1.25 (test code = 358) GLUCOSE RANDOM 99 mg/dL 70-105 (BEAKER) (test code = 652) CALCIUM (BEAKER) 9.9 mg/dL 8.4-10.2 (test code = 697) EGFR (BEAKER) (test 152 mL/min/1.73 ESTIM ATED GFR IS code = 1092) sq m NOT ACCURATE CREATININE CLEARANCE IN PREDICTING GLOMERULAR FILTRATION RATE . ESTIMATED GFR I S NOT APPLICABLE FOR DIALYSIS PATIEN TS. [employer] Adjuster ID - ANA EPATIC FUNCTION [id number] 05:35:00 Test Item Value Reference Range Interpretation Comments TOTAL PROTEIN (BEAKER) (test code = 7.3 gm/dL 6.0-8.3 770) ALBUMIN (BEAKER) (test code = 1145) 4.2 g/dL 3.5-5.0 BILIRUBIN TOTAL (BEAKER) (test code 0.3 mg/dL 0.2-1.2 = 377) BILIRUBIN DIRECT (BEAKER) (test 0.2 mg/dL 0.1-0.5 code = 706) ALKALINE PHOSPHATASE (BEAKER) (test 98 U/L 40-150 code = 346) AST (SGOT) (BEAKER) (test code = 129 U/L 5-34 H 353) ALT (SGPT) (BEAKER) (test code = 174 U/L 6-55 H 347) [employer] Adjuster ID - [facility]NA [facility] [id number] 05:33:00 Test Item Value Reference Range Interpretation Comments Troponin I (test code = <0.01 0-0.03 70831-1) RADHA (test code = RADHA) Troponin I (TnI) levels must be interpreted [...] failure, acidosis, acute neurological disease, and persistent tachyarrhythmia.Opera tor ID - ANA M Lab Interpretation (test Normal code = 21005-6) [facility] [id number] 05:33:00 Test Item Value Reference Range Interpretation Comments TROPONIN I (BEAKER) (test code = [...] failure, acidosis, acute neurological disease, and persistent tachyarrhythmia.[employer] Adjuster ID - ANA MPROTHROMBIN TIME/INR 2020-02-21 05:30:00 Test Item Value Reference Range Interpretation Comments PROTIME (BEAKER) (test code = 14.2 seconds 11.9-14.2 759) INR (BEAKER) (test code = 370) 1.1 <=5.9 Effective 12/11/2018: PT Reference Range ChangeNew: 11.9-14.2 Previous: 11.7- 14.7RECOMMENDED COUMADIN/WARFARIN INR THERAPY RANGESSTANDARD DOSE: 2.0-3.0 Includes: PROPHYLAXIS for venous thrombosis, systemic embolization; TREATMENT for venous thrombosis and/or pulmonary embolus.HIGH RISK: Target INR is2.5-3.5 for patients wiht mechanical heart valves.CBC W/PLT COUNT & AUTO [id number] 05:09:00 Test Item Value Reference Range Interpretation Comments WHITE BLOOD CELL COUNT (BEAKER) 5.3 K/ L 3.5-10.5 (test code = 775) RED BLOOD CELL COUNT (BEAKER) 4.39 M/ L 4.63-6.08 L (test code = 761) HEMOGLOBIN (BEAKER) (test code = 12.8 GM/DL 13.7-17.5 L 410) HEMATOCRIT (BEAKER) (test code = 40.5 % 40.1-51.0 411) MEAN CORPUSCULAR VOLUME (BEAKER) 92.3 fL 79.0-92.2 H (test code = 753) MEAN CORPUSCULAR HEMOGLOBIN 29.2 pg 25.7-32.2 (BEAKER) (test code = 751) MEAN CORPUSCULAR HEMOGLOBIN CONC 31.6 GM/DL 32.3-36.5 L (BEAKER) (test code = 752) RED CELL DISTRIBUTION WIDTH 14.0 % 11.6-14.4 (BEAKER) (test code = 412) PLATELET COUNT (BEAKER) (test 110 K/CU MM 150-450 L code = 756) MEAN PLATELET VOLUME (BEAKER) 9.9 fL 9.4-12.4 (test code = 754) NUCLEATED RED BLOOD CELLS 0 /100 WBC 0-0 (BEAKER) (test code = 413) NEUTROPHILS RELATIVE PERCENT 62 % (BEAKER) (test code = 429) LYMPHOCYTES RELATIVE PERCENT 28 % (BEAKER) (test code = 430) MONOCYTES RELATIVE PERCENT 9 % (BEAKER) (test code = 431) EOSINOPHILS RELATIVE PERCENT 1 % (BEAKER) (test code = 432) BASOPHILS RELATIVE PERCENT 0 % (BEAKER) (test code = 437) NEUTROPHILS ABSOLUTE COUNT 3.29 K/ L 1.78-5.38 (BEAKER) (test code = 670) LYMPHOCYTES ABSOLUTE COUNT 1.45 K/ L 1.32-3.57 (BEAKER) (test code = 414) MONOCYTES ABSOLUTE COUNT (BEAKER) 0.45 K/ L 0.30-0.82 (test code = 415) EOSINOPHILS ABSOLUTE COUNT 0.04 K/ L 0.04-0.54 (BEAKER) (test code = 416) BASOPHILS ABSOLUTE COUNT (BEAKER) 0.02 K/ L 0.01-0.08 (test code = 417) IMMATURE GRANULOCYTES-RELATIVE 0 % 0-1 PERCENT (BEAKER) (test code = 2801) BASIC METABOLIC [id number] 00:49:00 Test Item Value Reference Range Interpretation Comments SODIUM (BEAKER) 135 meq/L 136-145 L (test code = 381) POTASSIUM (BEAKER) 6.0 meq/L 3.5-5.1 HH (test code = 379) CHLORIDE (BEAKER) 111 meq/L 98-107 H (test code = 382) CO2 (BEAKER) (test 20 meq/L 22-29 L code = 355) BLOOD UREA NITROGEN 11 mg/dL 7-21 (BEAKER) (test code = 354) CREATININE (BEAKER) 0.61 mg/dL 0.57-1.25 (test code = 358) GLUCOSE RANDOM 87 mg/dL 70-105 (BEAKER) (test code = 652) CALCIUM (BEAKER) 9.3 mg/dL 8.4-10.2 (test code = 697) EGFR (BEAKER) (test 152 mL/min/1.73 ESTIM ATED GFR IS code = 1092) sq m NOT ACCURATE CREATININE CLEARANCE IN PREDICTING GLOMERULAR FILTRATION RATE . ESTIMATED GFR I S NOT APPLICABLE FOR DIALYSIS PATIEN TS. [employer] Adjuster ID - LAPOC-Glucose [id number] 23:50:00 Test Item Value Reference Range Interpretation Comments POC-Glucose Meter (test 166 mg/dL 70-110 H : TE STED AT [facility] code = 1538) [address] [facility] [address] [facility]: [employer] Unit Adjuster/Techni daya ID = [id number] for Clement Begum sa (contract) Lab Interpretation (test Abnormal code = 26195-9) [facility]POCT-GLUCOSE [id number] 23:50:00 Test Item Value Reference Range Interpretation Comments POC-GLUCOSE METER 166 mg/dL 70-110 H : TESTED A T [facility] [address] (BEAKER) (test code = [facility], 1538) [address]: [employer] Adjuster/Techni daya ID = [id number] for Tony fontanez Geri (contra ct) TROPONIN [id number] 21:54:00 Test Item Value Reference Range Interpretation Comments TROPONIN I (BEAKER) (test code = [...] failure, acidosis, acute neurological disease, and persistent tachyarrhythmia.[employer] Adjuster ID - NTPBASIC METABOLIC PANEL 2020-02-20 21:51:00 Test Item Value Reference Range Interpretation Comments SODIUM (BEAKER) 136 meq/L 136-145 (test code = 381) POTASSIUM (BEAKER) 6.6 meq/L 3.5-5.1 HH (test code = 379) CHLORIDE (BEAKER) 111 meq/L 98-107 H (test code = 382) CO2 (BEAKER) (test 22 meq/L 22-29 code = 355) BLOOD UREA NITROGEN 10 mg/dL 7-21 (BEAKER) (test code = 354) CREATININE (BEAKER) 0.64 mg/dL 0.57-1.25 (test code = 358) GLUCOSE RANDOM 101 mg/dL 70-105 (BEAKER) (test code = 652) CALCIUM (BEAKER) 9.6 mg/dL 8.4-10.2 (test code = 697) EGFR (BEAKER) (test 144 mL/min/1.73 ESTIM ATED GFR IS code = 1092) sq m NOT ACCURATE CREATININE CLEARANCE IN PREDICTING GLOMERULAR FILTRATION RATE . ESTIMATED GFR I S NOT APPLICABLE FOR DIALYSIS PATIEN TS. [employer] Adjuster ID - NTPBASIC METABOLIC [id number] 18:23:00 Test Item Value Reference Range Interpretation Comments SODIUM (BEAKER) 136 meq/L 136-145 (test code = 381) POTASSIUM (BEAKER) 6.1 meq/L 3.5-5.1 HH (test code = 379) CHLORIDE (BEAKER) 107 meq/L 98-107 (test code = 382) CO2 (BEAKER) (test 20 meq/L 22-29 L code = 355) BLOOD UREA NITROGEN 13 mg/dL 7-21 (BEAKER) (test code = 354) CREATININE (BEAKER) 0.69 mg/dL 0.57-1.25 (test code = 358) GLUCOSE RANDOM 82 mg/dL 70-105 (BEAKER) (test code = 652) CALCIUM (BEAKER) 9.4 mg/dL 8.4-10.2 (test code = 697) EGFR (BEAKER) (test 132 mL/min/1.73 ESTIM ATED GFR IS code = 1092) sq m NOT ACCURATE CREATININE CLEARANCE IN PREDICTING GLOMERULAR FILTRATION RATE . ESTIMATED GFR I S NOT APPLICABLE FOR DIALYSIS PATIEN TS. [employer] Adjuster ID - [id number] 17:11:00 Test Item Value Reference Range Interpretation Comments POTASSIUM (BEAKER) (test code = 6.2 meq/L 3.5-5.1 HH 379) [employer] Adjuster ID - DBHEMOGLOBIN AND [id number] 17:05:00 Test Item Value Reference Range Interpretation Comments HEMOGLOBIN (BEAKER) (test code = 13.7 GM/DL 13.7-17.5 410) HEMATOCRIT (BEAKER) (test code = 42.8 % 40.1-51.0 411) [employer] Adjuster ID - [id number] 16:31:00Surgical Pathology Report Case: [id number] Authorizing Provider: Wojciech Rincon Collected: 02/19/2020 01:22 PM Ordering Location: [address] Received: 02/20/2020 09:53 AM Service Pathologist: Young Moon MD Specimen: Distal Esophagus, distal esophageal ulcer A. DISTAL ESOPHAGUS,ULCER, BIOPSY: - NO PATHOLOGIC DIAGNOSIS Signing Pathologist Direct Phone Line: [phone] signed by Young Moon MD on 02/20/2020 at 4:31 PMThe biopsy shows fragments o f normal squamous mucosa without inflammation, yeast forms, viral inclusions or granulomas.[id number] biliary pancreatitisDistal esophagus Received in formalin labeled with the patient's name, accession number and "distal esophagus" are two prakash-pink tissue fragments measuring up to 0.2 cm in greatest dimension which are filtered and submitted in toto in A1. PA/pl Performed [id number] 10:06:00 Test Item Value Reference Range Interpretation Comments POTASSIUM (BEAKER) (test code = 5.5 meq/L 3.5-5.1 H 379) [employer] Adjuster ID - [id number] 06:32:00 Test Item Value Reference Range Interpretation Comments MAGNESIUM (BEAKER) (test code = 1.8 mg/dL 1.6-2.6 627) [employer] Adjuster ID - EDASIBASIC METABOLIC [id number] 06:32:00 Test Item Value Reference Range Interpretation Comments SODIUM (BEAKER) 134 meq/L 136-145 L (test code = 381) POTASSIUM (BEAKER) 5.5 meq/L 3.5-5.1 H (test code = 379) CHLORIDE (BEAKER) 105 meq/L 98-107 (test code = 382) CO2 (BEAKER) (test 24 meq/L 22-29 code = 355) BLOOD UREA NITROGEN 12 mg/dL 7-21 (BEAKER) (test code = 354) CREATININE (BEAKER) 0.63 mg/dL 0.57-1.25 (test code = 358) GLUCOSE RANDOM 105 mg/dL 70-105 (BEAKER) (test code = 652) CALCIUM (BEAKER) 9.8 mg/dL 8.4-10.2 (test code = 697) EGFR (BEAKER) (test 147 mL/min/1.73 ESTIM ATED GFR IS code = 1092) sq m NOT ACCURATE CREATININE CLEARANCE IN PREDICTING GLOMERULAR FILTRATION RATE . ESTIMATED GFR I S NOT APPLICABLE FOR DIALYSIS PATIEN TS. [employer] Unit Adjuster ID - EDASIHEPATIC FUNCTION [id number] 06:32:00 Test Item Value Reference Range Interpretation Comments TOTAL PROTEIN (BEAKER) (test code = 7.0 gm/dL 6.0-8.3 770) ALBUMIN (BEAKER) (test code = 1145) 4.0 g/dL 3.5-5.0 BILIRUBIN TOTAL (BEAKER) (test code 0.4 mg/dL 0.2-1.2 = 377) BILIRUBIN DIRECT (BEAKER) (test 0.2 mg/dL 0.1-0.5 code = 706) ALKALINE PHOSPHATASE (BEAKER) (test 104 U/L 40-150 code = 346) AST (SGOT) (BEAKER) (test code = 152 U/L 5-34 H 353) ALT (SGPT) (BEAKER) (test code = 141 U/L 6-55 H 347) [employer] Adjuster ID - EDASICBC W/PLT COUNT & AUTO [id number] 06:13:00 Test Item Value Reference Range Interpretation Comments WHITE BLOOD CELL COUNT (BEAKER) 4.6 K/ L 3.5-10.5 (test code = 775) RED BLOOD CELL COUNT (BEAKER) 4.24 M/ L 4.63-6.08 L (test code = 761) HEMOGLOBIN (BEAKER) (test code = 12.5 GM/DL 13.7-17.5 L 410) HEMATOCRIT (BEAKER) (test code = 37.7 % 40.1-51.0 L 411) MEAN CORPUSCULAR VOLUME (BEAKER) 88.9 fL 79.0-92.2 (test code = 753) MEAN CORPUSCULAR HEMOGLOBIN 29.5 pg 25.7-32.2 (BEAKER) (test code = 751) MEAN CORPUSCULAR HEMOGLOBIN CONC 33.2 GM/DL 32.3-36.5 (BEAKER) (test code = 752) RED CELL DISTRIBUTION WIDTH 13.7 % 11.6-14.4 (BEAKER) (test code = 412) PLATELET COUNT (BEAKER) (test code 95 K/CU MM 150-450 L = 756) MEAN PLATELET VOLUME (BEAKER) 11.0 fL 9.4-12.4 (test code = 754) NUCLEATED RED BLOOD CELLS (BEAKER) 0 /100 WBC 0-0 (test code = 413) NEUTROPHILS RELATIVE PERCENT 64 % (BEAKER) (test code = 429) LYMPHOCYTES RELATIVE PERCENT 26 % (BEAKER) (test code = 430) MONOCYTES RELATIVE PERCENT 9 % (BEAKER) (test code = 431) EOSINOPHILS RELATIVE PERCENT 1 % (BEAKER) (test code = 432) BASOPHILS RELATIVE PERCENT 0 % (BEAKER) (test code = 437) NEUTROPHILS ABSOLUTE COUNT 2.91 K/ L 1.78-5.38 (BEAKER) (test code = 670) LYMPHOCYTES ABSOLUTE COUNT 1.19 K/ L 1.32-3.57 L (BEAKER) (test code = 414) MONOCYTES ABSOLUTE COUNT (BEAKER) 0.41 K/ L 0.30-0.82 (test code = 415) EOSINOPHILS ABSOLUTE COUNT 0.04 K/ L 0.04-0.54 (BEAKER) (test code = 416) BASOPHILS ABSOLUTE COUNT (BEAKER) 0.01 K/ L 0.01-0.08 (test code = 417) IMMATURE GRANULOCYTES-RELATIVE 0 % 0-1 PERCENT (BEAKER) (test code = 2801) PROTHROMBIN [id number] 06:07:00 Test Item Value Reference Range Interpretation Comments PROTIME (BEAKER) (test code = 13.9 seconds 11.9-14.2 759) INR (BEAKER) (test code = 370) 1.1 <=5.9 Effective 12/11/2018: PT Reference Range ChangeNew: 11.9-14.2 Previous: 11.7- 14.7RECOMMENDED COUMADIN/WARFARIN INR THERAPY RANGESSTANDARD DOSE: 2.0-3.0 Includes: PROPHYLAXIS for venous thrombosis, systemic embolization; TREATMENT for venous thrombosis and/or pulmonary embolus.HIGH RISK: Target INR is2.5-3.5 for patients wiht mechanical heart valves.IGG SUBCLASS-4 [id number] 19:29:00 Test Item Value Reference Range Interpretation Comments Igg 4 (test code = 41 mg/dL 4-86 [id number]) RADHA (test code = Performing Lab EZ RADHA) [facility] [address] [place] [address] Katrin Skelton MD, PhD, DAJUAN [facility] [id number] 05:28:00 Test Item Value Reference Range Interpretation Comments MAGNESIUM (BEAKER) (test code = 1.8 mg/dL 1.6-2.6 627) [employer] Unit Adjuster ID - EDASIBASIC METABOLIC [id number] 05:28:00 Test Item Value Reference Range Interpretation Comments SODIUM (BEAKER) 133 meq/L 136-145 L (test code = 381) POTASSIUM (BEAKER) 4.7 meq/L 3.5-5.1 (test code = 379) CHLORIDE (BEAKER) 103 meq/L 98-107 (test code = 382) CO2 (BEAKER) (test 24 meq/L 22-29 code = 355) BLOOD UREA NITROGEN 6 mg/dL 7-21 L (BEAKER) (test code = 354) CREATININE (BEAKER) 0.59 mg/dL 0.57-1.25 (test code = 358) GLUCOSE RANDOM 106 mg/dL 70-105 H (BEAKER) (test code = 652) CALCIUM (BEAKER) 9.3 mg/dL 8.4-10.2 (test code = 697) EGFR (BEAKER) (test 158 mL/min/1.73 ESTIM ATED GFR IS code = 1092) sq m NOT ACCURATE CREATININE CLEARANCE IN PREDICTING GLOMERULAR FILTRATION RATE . ESTIMATED GFR I S NOT APPLICABLE FOR DIALYSIS PATIEN TS. [employer] Spr[employer] Unit Adjuster ID - EDASIHEPATIC FUNCTION [id number] 05:28:00 Test Item Value Reference Range Interpretation Comments TOTAL PROTEIN (BEAKER) (test code = 6.9 gm/dL 6.0-8.3 770) ALBUMIN (BEAKER) (test code = 1145) 3.9 g/dL 3.5-5.0 BILIRUBIN TOTAL (BEAKER) (test code 0.4 mg/dL 0.2-1.2 = 377) BILIRUBIN DIRECT (BEAKER) (test 0.2 mg/dL 0.1-0.5 code = 706) ALKALINE PHOSPHATASE (BEAKER) (test 104 U/L 40-150 code = 346) AST (SGOT) (BEAKER) (test code = 140 U/L 5-34 H 353) ALT (SGPT) (BEAKER) (test code = 97 U/L 6-55 H 347) [employer] Unit Adjuster ID - EDASIPROTHROMBIN [id number] 05:04:00 Test Item Value Reference Range Interpretation Comments PROTIME (BEAKER) (test code = 14.2 seconds 11.9-14.2 759) INR (BEAKER) (test code = 370) 1.1 <=5.9 Effective 12/11/2018: PT Reference Range ChangeNew: 11.9-14.2 Previous: 11.7- 14.7RECOMMENDED COUMADIN/WARFARIN INR THERAPY RANGESSTANDARD DOSE: 2.0-3.0 Includes: PROPHYLAXIS for venous thrombosis, systemic embolization; TREATMENT for venous thrombosis and/or pulmonary embolus.HIGH RISK: Target INR is2.5-3.5 for patients wiht mechanical heart valves.CBC W/PLT COUNT & AUTO [id number] 04:50:00 Test Item Value Reference Range Interpretation Comments WHITE BLOOD CELL COUNT (BEAKER) 3.3 K/ L 3.5-10.5 L (test code = 775) RED BLOOD CELL COUNT (BEAKER) 4.37 M/ L 4.63-6.08 L (test code = 761) HEMOGLOBIN (BEAKER) (test code = 12.7 GM/DL 13.7-17.5 L 410) HEMATOCRIT (BEAKER) (test code = 38.8 % 40.1-51.0 L 411) MEAN CORPUSCULAR VOLUME (BEAKER) 88.8 fL 79.0-92.2 (test code = 753) MEAN CORPUSCULAR HEMOGLOBIN 29.1 pg 25.7-32.2 (BEAKER) (test code = 751) MEAN CORPUSCULAR HEMOGLOBIN CONC 32.7 GM/DL 32.3-36.5 (BEAKER) (test code = 752) RED CELL DISTRIBUTION WIDTH 13.6 % 11.6-14.4 (BEAKER) (test code = 412) PLATELET COUNT (BEAKER) (test code 82 K/CU MM 150-450 L = 756) MEAN PLATELET VOLUME (BEAKER) 10.7 fL 9.4-12.4 (test code = 754) NUCLEATED RED BLOOD CELLS (BEAKER) 0 /100 WBC 0-0 (test code = 413) NEUTROPHILS RELATIVE PERCENT 48 % (BEAKER) (test code = 429) LYMPHOCYTES RELATIVE PERCENT 40 % (BEAKER) (test code = 430) MONOCYTES RELATIVE PERCENT 9 % (BEAKER) (test code = 431) EOSINOPHILS RELATIVE PERCENT 3 % (BEAKER) (test code = 432) BASOPHILS RELATIVE PERCENT 1 % (BEAKER) (test code = 437) NEUTROPHILS ABSOLUTE COUNT 1.58 K/ L 1.78-5.38 L (BEAKER) (test code = 670) LYMPHOCYTES ABSOLUTE COUNT 1.30 K/ L 1.32-3.57 L (BEAKER) (test code = 414) MONOCYTES ABSOLUTE COUNT (BEAKER) 0.29 K/ L 0.30-0.82 L (test code = 415) EOSINOPHILS ABSOLUTE COUNT 0.09 K/ L 0.04-0.54 (BEAKER) (test code = 416) BASOPHILS ABSOLUTE COUNT (BEAKER) 0.02 K/ L 0.01-0.08 (test code = 417) IMMATURE GRANULOCYTES-RELATIVE 0 % 0-1 PERCENT (BEAKER) (test code = 2801) SARS-COV2/RT-PCR ([facility])2020-02-18 11:40:00 Test Item Value Reference Range Interpretation Comments SARS-COV2/RT-PCR (test Negative Not Detected, Negative, code = 0783576) See external report for linked test SARS-COV-2 PERFORMING LAB [facility] (test code = 3122510) Negative result for this test determines that SARS-CoV-2 RNA was not present in the specimen above the Limit of Detection (LOD). However, Negative results do not preclude SARS-CoV-2 infection and should not be used as the sole basis for treatment or patient management decisions. Negative results mustbe combined with clinical observations, patient history, and epidemiological information. A false negative result may occur if a specimen is improperly collected, transported or handled. A false negative result should be considered if patient's recent exposures or clinical presentation indicate that COVID-19 (SARS-CoV-2) is likely and diagnostic tests for other causes of illness are negative. Re-testing should be considered in cases of suspected false negatives.The limit of detection for this assay is 800 copies/mL.This SARS CoV-2 test is a real-time RT-PCR test intended for the qualitative detection of nucleic acid from SARS-CoV-2 in a nasopharyngeal swab specimen collected from individuals suspected of COVID-19 by their healthcare provider.This test has not been Food and Drug Administration (FDA) cleared or approved. This is a modified version of an approved [...] is revoked under Section 564(g) of the Act.Fact Sheet for Healthcare Providers:https://www.[employer]/sites/default/files/product/documents/Fact_Shee x_LU_Fojmbgjvu_Gtyp_BMZM-BlJ-9.pdfFact Sheet for Healthcare Patients:https://www.[employer]/sites/default/files/product/ documents/Khyk_Nyxqs_Yqyzhomk_Wkqt_NJGN-NoM-9.pdfPerforming Laboratory:[address].[place], [place] [address]XGZ W/PLT COUNT & AUTO [id number] 07:00:00 Test Item Value Reference Range Interpretation Comments WHITE BLOOD CELL COUNT (BEAKER) 2.6 K/ L 3.5-10.5 L (test code = 775) RED BLOOD CELL COUNT (BEAKER) 4.34 M/ L 4.63-6.08 L (test code = 761) HEMOGLOBIN (BEAKER) (test code = 12.7 GM/DL 13.7-17.5 L 410) HEMATOCRIT (BEAKER) (test code = 38.9 % 40.1-51.0 L 411) MEAN CORPUSCULAR VOLUME (BEAKER) 89.6 fL 79.0-92.2 (test code = 753) MEAN CORPUSCULAR HEMOGLOBIN 29.3 pg 25.7-32.2 (BEAKER) (test code = 751) MEAN CORPUSCULAR HEMOGLOBIN CONC 32.6 GM/DL 32.3-36.5 (BEAKER) (test code = 752) RED CELL DISTRIBUTION WIDTH 13.8 % 11.6-14.4 (BEAKER) (test code = 412) PLATELET COUNT (BEAKER) (test code 66 K/CU MM 150-450 L = 756) MEAN PLATELET VOLUME (BEAKER) 10.0 fL 9.4-12.4 (test code = 754) NUCLEATED RED BLOOD CELLS (BEAKER) 0 /100 WBC 0-0 (test code = 413) NEUTROPHILS RELATIVE PERCENT 51 % (BEAKER) (test code = 429) LYMPHOCYTES RELATIVE PERCENT 37 % (BEAKER) (test code = 430) MONOCYTES RELATIVE PERCENT 9 % (BEAKER) (test code = 431) EOSINOPHILS RELATIVE PERCENT 2 % (BEAKER) (test code = 432) BASOPHILS RELATIVE PERCENT 0 % (BEAKER) (test code = 437) NEUTROPHILS ABSOLUTE COUNT 1.33 K/ L 1.78-5.38 L (BEAKER) (test code = 670) LYMPHOCYTES ABSOLUTE COUNT 0.97 K/ L 1.32-3.57 L (BEAKER) (test code = 414) MONOCYTES ABSOLUTE COUNT (BEAKER) 0.23 K/ L 0.30-0.82 L (test code = 415) EOSINOPHILS ABSOLUTE COUNT 0.06 K/ L 0.04-0.54 (BEAKER) (test code = 416) BASOPHILS ABSOLUTE COUNT (BEAKER) 0.01 K/ L 0.01-0.08 (test code = 417) IMMATURE GRANULOCYTES-RELATIVE 0 % 0-1 PERCENT (BEAKER) (test code = 2801) [id number] 06:29:00 Test Item Value Reference Range Interpretation Comments MAGNESIUM (BEAKER) 2.0 mg/dL 1.6-2.6 Specimen moderately (test code = 627) hemolyzed [employer] Unit Adjuster ID - EDASIBASIC METABOLIC [id number] 06:29:00 Test Item Value Reference Range Interpretation Comments SODIUM (BEAKER) 134 meq/L 136-145 L (test code = 381) POTASSIUM (BEAKER) 4.5 meq/L 3.5-5.1 Specimen moderately (test code = 379) hemolyzed CHLORIDE (BEAKER) 103 meq/L 98-107 (test code = 382) CO2 (BEAKER) (test 25 meq/L 22-29 code = 355) BLOOD UREA NITROGEN 6 mg/dL 7-21 L (BEAKER) (test code = 354) CREATININE (BEAKER) 0.60 mg/dL 0.57-1.25 Specimen moderately (test code = 358) hemolyzed GLUCOSE RANDOM 117 mg/dL 70-105 H (BEAKER) (test code = 652) CALCIUM (BEAKER) 8.5 mg/dL 8.4-10.2 (test code = 697) EGFR (BEAKER) (test 155 mL/min/1.73 ESTIM ATED GFR IS code = 1092) sq m NOT ACCURATE CREATININE CLEARANCE IN PREDICTING GLOMERULAR FILTRATION RATE . ESTIMATED GFR I S NOT APPLICABLE FOR DIALYSIS PATIEN TS. [employer] Unit Adjuster ID - EDASIHEPATIC FUNCTION [id number] 06:29:00 Test Item Value Reference Range Interpretation Comments TOTAL PROTEIN (BEAKER) 6.5 gm/dL 6.0-8.3 Speci men moderately (test code = 770) hemolyzed ALBUMIN (BEAKER) (test 3.5 g/dL 3.5-5.0 Speci men moderately code = 1145) hemolyzed BILIRUBIN TOTAL 0.5 mg/dL 0.2-1.2 Specimen mod erately (BEAKER) (test code = hemoly zed 377) BILIRUBIN DIRECT 0.2 mg/dL 0.1-0.5 Specimen mo derately (BEAKER) (test code = hemoly zed 706) ALKALINE PHOSPHATASE 92 U/L 40-150 (BEAKER) (test code = 346) AST (SGOT) (BEAKER) 84 U/L 5-34 H Specimen moderately (test code = 353) hemolyzed ALT (SGPT) (BEAKER) 46 U/L 6-55 Specimen moderately (test code = 347) hemolyzed [employer] Adjuster ID - EDASIAnti-Nuclear Antibody (ESMER)2020-02-17 14:56:00 Test Item Value Reference Range Interpretation Comments ESMER (test code = 00376-4) Negative Negative RADHA (test code = RADHA) Test performed by IFA method.Test performed by IFA method. Lab Interpretation (test Normal code = 39546-8) [facility]2020-02-17 14:56:00 Test Item Value Reference Range Interpretation Comments ANTI-NUCLEAR ANTIBODY (ESMER) (BEAKER) Negative Negative (test code = 418) Test performed by IFA method.Test performed by IFA method.Immunoglobulin G (IgG) 2020-02-17 04:43:00 Test Item Value Reference Range Interpretation Comments IgG (test code = 2465-3) 889 mg/dL 540-1822 RADHA (test code = RADHA) [employer] [facility] [employer] ID - JEFFRY W Lab Interpretation (test Normal code = 70378-0) [facility]2020-02-17 04:43:00 Test Item Value Reference Range Interpretation Comments IMMUNOGLOBULIN G (IGG) (BEAKER) 889 mg/dL 540-1,822 (test code = 427) [employer] [facility] [employer] ID Laura TERAN WC-Reactive [id number] 04:30:00 Test Item Value Reference Range Interpretation Comments CRP (test code = 676) 3.31 mg/dL 0-0.5 H RADHA (test code = RADHA) [employer] [facility] [employer] ID Laura TERAN W Lab Interpretation (test Abnormal code = 24753-2) [facility] 04:[facility] Test Item Value Reference Range Interpretation Comments MAGNESIUM (BEAKER) (test code = 1.7 mg/dL 1.6-2.6 627) [employer] [facility] [facility] [employer] ID Laura TERAN WBASIC METABOLIC [id number] 04:30:00 Test Item Value Reference Range Interpretation Comments SODIUM (BEAKER) 132 meq/L 136-145 L (test code = 381) POTASSIUM (BEAKER) 3.7 meq/L 3.5-5.1 (test code = 379) CHLORIDE (BEAKER) 97 meq/L 98-107 L (test code = 382) CO2 (BEAKER) (test 25 meq/L 22-29 code = 355) BLOOD UREA NITROGEN 12 mg/dL 7-21 (BEAKER) (test code = 354) CREATININE (BEAKER) 0.58 mg/dL 0.57-1.25 (test code = 358) GLUCOSE RANDOM 98 mg/dL 70-105 (BEAKER) (test code = 652) CALCIUM (BEAKER) 9.0 mg/dL 8.4-10.2 (test code = 697) EGFR (BEAKER) (test 161 mL/min/1.73 ESTIM ATED GFR IS code = 1092) sq m NOT ACCURATE CREATININE CLEARANCE IN PREDICTING GLOMERULAR FILTRATION RATE . ESTIMATED GFR I S NOT APPLICABLE FOR DIALYSIS PATIEN TS. [employer] [facility] [employer] ID - JEFFRY WHEPATIC FUNCTION [id number] 04:30:00 Test Item Value Reference Range Interpretation Comments TOTAL PROTEIN (BEAKER) (test code = 6.6 gm/dL 6.0-8.3 770) ALBUMIN (BEAKER) (test code = 1145) 3.8 g/dL 3.5-5.0 BILIRUBIN TOTAL (BEAKER) (test code 0.6 mg/dL 0.2-1.2 = 377) BILIRUBIN DIRECT (BEAKER) (test 0.3 mg/dL 0.1-0.5 code = 706) ALKALINE PHOSPHATASE (BEAKER) (test 98 U/L 40-150 code = 346) AST (SGOT) (BEAKER) (test code = 39 U/L 5-34 H 353) ALT (SGPT) (BEAKER) (test code = 30 U/L 6-55 347) [employer] [facility] [employer] ID Laura TERAN WC-REACTIVE [id number] 04:30:00 Test Item Value Reference Range Interpretation Comments C-REACTIVE PROTEIN (BEAKER) (test 3.31 mg/dL 0.00-0.50 H code = 676) [employer] [facility] [employer] ID - JEFFRY WCBC W/PLT COUNT & AUTO [id number] 04:14:00 Test Item Value Reference Range Interpretation Comments WHITE BLOOD CELL COUNT (BEAKER) 7.7 K/ L 3.5-10.5 (test code = 775) RED BLOOD CELL COUNT (BEAKER) 5.08 M/ L 4.63-6.08 (test code = 761) HEMOGLOBIN (BEAKER) (test code = 14.7 GM/DL 13.7-17.5 410) HEMATOCRIT (BEAKER) (test code = 43.9 % 40.1-51.0 411) MEAN CORPUSCULAR VOLUME (BEAKER) 86.4 fL 79.0-92.2 (test code = 753) MEAN CORPUSCULAR HEMOGLOBIN 28.9 pg 25.7-32.2 (BEAKER) (test code = 751) MEAN CORPUSCULAR HEMOGLOBIN CONC 33.5 GM/DL 32.3-36.5 (BEAKER) (test code = 752) RED CELL DISTRIBUTION WIDTH 13.6 % 11.6-14.4 (BEAKER) (test code = 412) PLATELET COUNT (BEAKER) (test 130 K/CU MM 150-450 L code = 756) MEAN PLATELET VOLUME (BEAKER) 9.4 fL 9.4-12.4 (test code = 754) NUCLEATED RED BLOOD CELLS 0 /100 WBC 0-0 (BEAKER) (test code = 413) NEUTROPHILS RELATIVE PERCENT 78 % (BEAKER) (test code = 429) LYMPHOCYTES RELATIVE PERCENT 16 % (BEAKER) (test code = 430) MONOCYTES RELATIVE PERCENT 6 % (BEAKER) (test code = 431) EOSINOPHILS RELATIVE PERCENT 1 % (BEAKER) (test code = 432) BASOPHILS RELATIVE PERCENT 0 % (BEAKER) (test code = 437) NEUTROPHILS ABSOLUTE COUNT 5.96 K/ L 1.78-5.38 H (BEAKER) (test code = 670) LYMPHOCYTES ABSOLUTE COUNT 1.19 K/ L 1.32-3.57 L (BEAKER) (test code = 414) MONOCYTES ABSOLUTE COUNT (BEAKER) 0.42 K/ L 0.30-0.82 (test code = 415) EOSINOPHILS ABSOLUTE COUNT 0.06 K/ L 0.04-0.54 (BEAKER) (test code = 416) BASOPHILS ABSOLUTE COUNT (BEAKER) 0.02 K/ L 0.01-0.08 (test code = 417) IMMATURE GRANULOCYTES-RELATIVE 0 % 0-1 PERCENT (BEAKER) (test code = 2801) [id number] 17:56:00 Test Item Value Reference Range Interpretation Comments MAGNESIUM (BEAKER) (test code = 1.9 mg/dL 1.6-2.6 627) [employer] Adjuster ID - IDALIA LBASIC METABOLIC [id number] 17:56:00 Test Item Value Reference Range Interpretation Comments SODIUM (BEAKER) 133 meq/L 136-145 L (test code = 381) POTASSIUM (BEAKER) 4.0 meq/L 3.5-5.1 (test code = 379) CHLORIDE (BEAKER) 98 meq/L 98-107 (test code = 382) CO2 (BEAKER) (test 26 meq/L 22-29 code = 355) BLOOD UREA NITROGEN 14 mg/dL 7-21 (BEAKER) (test code = 354) CREATININE (BEAKER) 0.59 mg/dL 0.57-1.25 (test code = 358) GLUCOSE RANDOM 108 mg/dL 70-105 H (BEAKER) (test code = 652) CALCIUM (BEAKER) 8.9 mg/dL 8.4-10.2 (test code = 697) EGFR (BEAKER) (test 158 mL/min/1.73 ESTIM ATED GFR IS code = 1092) sq m NOT ACCURATE CREATININE CLEARANCE IN PREDICTING GLOMERULAR FILTRATION RATE . ESTIMATED GFR I S NOT APPLICABLE FOR DIALYSIS PATIEN TS. [employer] Unit Adjuster ID - PISAVANNAH [id number] 07:06:00 Test Item Value Reference Range Interpretation Comments MAGNESIUM (BEAKER) (test code = 1.6 mg/dL 1.6-2.6 627) [employer] Unit Adjuster AQUILES FRIEDMAN LBASIC METABOLIC [id number] 07:06:00 Test Item Value Reference Range Interpretation Comments SODIUM (BEAKER) 134 meq/L 136-145 L (test code = 381) POTASSIUM (BEAKER) 3.9 meq/L 3.5-5.1 (test code = 379) CHLORIDE (BEAKER) 100 meq/L 98-107 (test code = 382) CO2 (BEAKER) (test 23 meq/L 22-29 code = 355) BLOOD UREA NITROGEN 13 mg/dL 7-21 (BEAKER) (test code = 354) CREATININE (BEAKER) 0.63 mg/dL 0.57-1.25 (test code = 358) GLUCOSE RANDOM 90 mg/dL 70-105 (BEAKER) (test code = 652) CALCIUM (BEAKER) 8.6 mg/dL 8.4-10.2 (test code = 697) EGFR (BEAKER) (test 147 mL/min/1.73 ESTIM ATED GFR IS code = 1092) sq m NOT ACCURATE CREATININE CLEARANCE IN PREDICTING GLOMERULAR FILTRATION RATE . ESTIMATED GFR I S NOT APPLICABLE FOR DIALYSIS PATIEN TS. [employer] Unit Adjuster AQUILES FRIEDMAN LHEPATIC FUNCTION [id number] 07:06:00 Test Item Value Reference Range Interpretation Comments TOTAL PROTEIN (BEAKER) (test code = 6.7 gm/dL 6.0-8.3 770) ALBUMIN (BEAKER) (test code = 1145) 3.9 g/dL 3.5-5.0 BILIRUBIN TOTAL (BEAKER) (test code 0.7 mg/dL 0.2-1.2 = 377) BILIRUBIN DIRECT (BEAKER) (test 0.4 mg/dL 0.1-0.5 code = 706) ALKALINE PHOSPHATASE (BEAKER) (test 101 U/L 40-150 code = 346) AST (SGOT) (BEAKER) (test code = 53 U/L 5-34 H 353) ALT (SGPT) (BEAKER) (test code = 35 U/L 6-55 347) [employer] Unit Adjuster AQUILES FRIEDMAN LRapid drug screen, [id number] 06:52:00 Test Item Value Reference Range Interpretation Comments Barbiturate Screen Negative Negative (test code = 66007-2) Benzodiazepine Screen Negative Negative (test code = 25810-5) Cocaine (Metab.) Negative Negative Screen (test code = 3397-7) Methadone Screen (test Negative Negative code = 12034-1) Opiate Screen (test Positive Negative A code = 47974-7) Cannabinoid Screen Negative Negative (test code = 27765-1) Amph/Methamph Screen Negative Negative (test code = 05399-2) Phencyclidine Screen Negative Negative (test code = 41280-4) pH, UA (test code = 6.5 5.0-8.0 5803-2) RADHA (test code = RADHA) DRUG CUTOFF CONC.Cocaine 300 ng/mL Cannabinoid 50 ng/mLBenzodiazepine 200 ng/mLBarbiturate 200 ng/mLPhencyclidine 25 ng/mLOpiate 300 ng/mLMethadone 300 ng/mLAmphetamine/ 1000 ng/mL Methamphetamine This assay provides an unconfirmed qualitative test result for the clinical management of patients in emergency situations. Chain of custody not maintained. Some nana-eju-odoqnsg medications, as well as adulterants, may cause inaccurate results. Clinical correlation should be applied. A more comprehensive drug screen or confirmation of a detected drug may be performed upon request.[employer] Adjuster ID - DARINSAVANNAH Kory ID - [auto] Lab Interpretation Abnormal (test code = 63871-3) [facility], [id number] 06:52:00 Test Item Value Reference Range Interpretation Comments BARBITURATE URINE (BEAKER) (test Negative Negative code = 725) BENZODIAZEPINE SCREEN URINE (BEAKER) Negative Negative (test code = 726) COCAINE (METAB.) SCREEN (BEAKER) Negative Negative (test code = 1164) METHADONE SCREEN (BEAKER) (test code Negative Negative = 1436) OPIATE SCREEN URINE (BEAKER) (test Positive Negative A code = 734) CANNABINOID SCREEN URINE (BEAKER) Negative Negative (test code = 727) AMPH/METHAMPH SCREEN (BEAKER) (test Negative Negative code = 1438) PHENCYCLIDINE SCREEN URINE (BEAKER) Negative Negative (test code = 608) PH UA (BEAKER) (test code = 467) 6.5 5.0-8.0 DRUG CUTOFF CONC.Cocaine 300 ng/mL Cannabinoid 50 ng/mLBenzodiazepine 200 ng/mLBarbiturate 200 ng/mLPhencyclidine 25 ng/mLOpiate 300 ng/mLMethadone 300 ng/mLAmphetamine/ 1000 ng/mL MethamphetamineThis assay provides an unconfirmed qualitative test result for the clinical management of patients in emergency situations. Chain of custody not maintained. Some itdi-jgq-bsffysy medications, as well as adulterants, may cause inaccurate results. Clinical correlation should be applied. A more comprehensivedrug screen or confirmation of a detected drug may be performed upon request.[employer] Adjuster ID - IDALIA Horn ID - [auto]CBC W/PLT COUNT & AUTO [id number] 06:20:00 Test Item Value Reference Range Interpretation Comments WHITE BLOOD CELL COUNT 5.9 K/ L 3.5-10.5 (BEAKER) (test code = 775) RED BLOOD CELL COUNT 4.58 M/ L 4.63-6.08 L (BEAKER) (test code = 761) HEMOGLOBIN (BEAKER) 13.3 GM/DL 13.7-17.5 L Patient bleeding (test code = 410) per #[id number] HEMATOCRIT (BEAKER) 39.9 % 40.1-51.0 L (test code = 411) MEAN CORPUSCULAR VOLUME 87.1 fL 79.0-92.2 (BEAKER) (test code = 753) MEAN CORPUSCULAR 29.0 pg 25.7-32.2 HEMOGLOBIN (BEAKER) (test code = 751) MEAN CORPUSCULAR 33.3 GM/DL 32.3-36.5 HEMOGLOBIN CONC (BEAKER) (test code = 752) RED CELL DISTRIBUTION 14.4 % 11.6-14.4 WIDTH (BEAKER) (test code = 412) PLATELET COUNT (BEAKER) 182 K/CU MM 150-450 (test code = 756) MEAN PLATELET VOLUME 9.6 fL 9.4-12.4 (BEAKER) (test code = 754) NUCLEATED RED BLOOD 0 /100 WBC 0-0 CELLS (BEAKER) (test code = 413) NEUTROPHILS RELATIVE 55 % PERCENT (BEAKER) (test code = 429) LYMPHOCYTES RELATIVE 36 % PERCENT (BEAKER) (test code = 430) MONOCYTES RELATIVE 8 % PERCENT (BEAKER) (test code = 431) EOSINOPHILS RELATIVE 1 % PERCENT (BEAKER) (test code = 432) BASOPHILS RELATIVE 1 % PERCENT (BEAKER) (test code = 437) NEUTROPHILS ABSOLUTE 3.26 K/ L 1.78-5.38 COUNT (BEAKER) (test code = 670) LYMPHOCYTES ABSOLUTE 2.12 K/ L 1.32-3.57 COUNT (BEAKER) (test code = 414) MONOCYTES ABSOLUTE 0.46 K/ L 0.30-0.82 COUNT (BEAKER) (test code = 415) EOSINOPHILS ABSOLUTE 0.05 K/ L 0.04-0.54 COUNT (BEAKER) (test code = 416) BASOPHILS ABSOLUTE 0.04 K/ L 0.01-0.08 COUNT (BEAKER) (test code = 417) IMMATURE 0 % 0-1 GRANULOCYTES-RELATIVE PERCENT (BEAKER) (test code = 2801) [id number] 20:50:00 Test Item Value Reference Range Interpretation Comments Protime (test code = 14.8 11.9- 14.2 H 5902-2) seconds INR (test code = 1.2 <=5.9 6301-6) PTT (test code = 27.3 22.5- 36.0 55707-0) seconds RADHA (test code = RADHA) Effective 12/11/2018: PT Reference Range ChangeNew: 11.9-14.2 Previous: 11.7-14.7 RECOMMENDED COUMADIN/WARFARIN INR THERAPY RANGESSTANDARD DOSE: 2.0-3.0 Includes: PROPHYLAXIS for venous thrombosis, systemic embolization; TREATMENT for venous thrombosis and/or pulmonary embolus.HIGH RISK: Target INR is 2.5-3.5 for patients wiht mechanical heart valves. Lab Interpretation Abnormal (test code = 51656-3) [facility] CenterPT/[id number] 20:50:00 Test Item Value Reference Range Interpretation Comments PROTIME (BEAKER) (test code = 14.8 seconds 11.9-14.2 H 759) INR (BEAKER) (test code = 370) 1.2 <=5.9 PARTIAL THROMBOPLASTIN TIME 27.3 seconds 22.5-36.0 (BEAKER) (test code = 760) Effective 12/11/2018: PT Reference Range ChangeNew: 11.9-14.2 Previous: 11.7- 14.7RECOMMENDED COUMADIN/WARFARIN INR THERAPY RANGESSTANDARD DOSE: 2.0-3.0 Includes: PROPHYLAXIS for venous thrombosis, systemic embolization; TREATMENT for venous thrombosis and/or pulmonary embolus.HIGH RISK: Target INR is2.5-3.5 for patients wiht mechanical heart valves.CT, [id number] 19:18:00FINAL REPORT TECHNIQUE: CT of the abdomen and pelvis WITH intravenous contrast and WITHOUT oral contrast. Dose modulation, iterative reconstruction, and/or weight-based adjustment of the mA/kV was utilized to reduce the radiation dose to as low as reasonably achievable. INDICATION: pancreatitis and GI bleed. COMPARISON: CT from 12/17/2019. FINDINGS: LOWER THORAX: Unremarkable. HEPATOBILIARY: Liver is enlarged and diffusely decreased in attenuation No focal hepatic lesions. Gallbladder is unremarkable. No biliary ductal dilatation.SPLEEN: No splenomegaly.PANCREAS: No focal masses or ductal dilatation. There is mild peritoneal thickening adjacent to the tail of the pancreas which is more prominent than on the prior examination. ADRENALS: No adrenal nodules.KIDNEYS/URETERS: No hydronephrosis, stones, or masses.PELVIC ORGANS/BLADDER: Unremarkable. PERITONEUM/RETROPERITONEUM: Nofree air or fluid.LYMPH NODES: No lymphadenopathy.VESSELS: Mild atherosclerosis of the infrarenal abdominal aorta.. GI TRACT: The distal esophagus is diffusely thickened. BONES AND SOFT TISSUES: Unremarkable. IMPRESSION: 1.The mild peritoneal thickening adjacent to the tail of the pancreas, while nonspecific, is likely due to acute interstitial edematous pancreatitis. No pancreatic necrosis or peripancreatic fluid collection. 2.The diffuse thickening of the distal esophagus is nonspecific but likely due to esophagitis. 3.Hepatomegaly with diffuse fatty infiltration of the liver. Signed: Stephanie Coleman Verified Date/Time: 02/15/2020 19:18:09 Reading Location: [facility] C013Y CT Body Reading Room [id number] 16:59:00 Test Item Value Reference Range Interpretation Comments LIPASE (BEAKER) (test code = 749) 82 U/L 8-78 H [employer] Unit Adjuster ID - MATI CCOMPREHENSIVE METABOLIC [id number] 16:59:00 Test Item Value Reference Range Interpretation Comments TOTAL PROTEIN 8.8 gm/dL 6.0-8.3 H (BEAKER) (test code = 770) ALBUMIN (BEAKER) 4.9 g/dL 3.5-5.0 (test code = 1145) ALKALINE PHOSPHATASE 141 U/L 40-150 (BEAKER) (test code = 346) BILIRUBIN TOTAL 0.5 mg/dL 0.2-1.2 (BEAKER) (test code = 377) SODIUM (BEAKER) (test 136 meq/L 136-145 code = 381) POTASSIUM (BEAKER) 3.6 meq/L 3.5-5.1 (test code = 379) CHLORIDE (BEAKER) 96 meq/L 98-107 L (test code = 382) CO2 (BEAKER) (test 20 meq/L 22-29 L code = 355) BLOOD UREA NITROGEN 12 mg/dL 7-21 (BEAKER) (test code = 354) CREATININE (BEAKER) 0.76 mg/dL 0.57-1.25 (test code = 358) GLUCOSE RANDOM 111 mg/dL 70-105 H (BEAKER) (test code = 652) CALCIUM (BEAKER) 9.4 mg/dL 8.4-10.2 (test code = 697) AST (SGOT) (BEAKER) 67 U/L 5-34 H (test code = 353) ALT (SGPT) (BEAKER) 45 U/L 6-55 (test code = 347) EGFR (BEAKER) (test 118 ESTIMATE D GFR IS code = 1092) mL/min/1.73 sq NOT ACCURA TE m CREATININE CLEARANCE IN PREDICTING GLOMERULAR FILTRATION RATE . ESTIMATED GFR I S NOT APPLICABLE FOR DIALYSIS PATIEN TS. [employer] Unit Adjuster ID - MATI CCBC W/PLT COUNT & AUTO [id number] 16:43:00 Test Item Value Reference Range Interpretation Comments WHITE BLOOD CELL COUNT (BEAKER) 8.6 K/ L 3.5-10.5 (test code = 775) RED BLOOD CELL COUNT (BEAKER) 5.84 M/ L 4.63-6.08 (test code = 761) HEMOGLOBIN (BEAKER) (test code = 17.1 GM/DL 13.7-17.5 410) HEMATOCRIT (BEAKER) (test code = 50.3 % 40.1-51.0 411) MEAN CORPUSCULAR VOLUME (BEAKER) 86.1 fL 79.0-92.2 (test code = 753) MEAN CORPUSCULAR HEMOGLOBIN 29.3 pg 25.7-32.2 (BEAKER) (test code = 751) MEAN CORPUSCULAR HEMOGLOBIN CONC 34.0 GM/DL 32.3-36.5 (BEAKER) (test code = 752) RED CELL DISTRIBUTION WIDTH 14.9 % 11.6-14.4 H (BEAKER) (test code = 412) PLATELET COUNT (BEAKER) (test 325 K/CU MM 150-450 code = 756) MEAN PLATELET VOLUME (BEAKER) 10.4 fL 9.4-12.4 (test code = 754) NUCLEATED RED BLOOD CELLS 0 /100 WBC 0-0 (BEAKER) (test code = 413) NEUTROPHILS RELATIVE PERCENT 59 % (BEAKER) (test code = 429) LYMPHOCYTES RELATIVE PERCENT 34 % (BEAKER) (test code = 430) MONOCYTES RELATIVE PERCENT 5 % (BEAKER) (test code = 431) EOSINOPHILS RELATIVE PERCENT 0 % (BEAKER) (test code = 432) BASOPHILS RELATIVE PERCENT 1 % (BEAKER) (test code = 437) NEUTROPHILS ABSOLUTE COUNT 5.08 K/ L 1.78-5.38 (BEAKER) (test code = 670) LYMPHOCYTES ABSOLUTE COUNT 2.93 K/ L 1.32-3.57 (BEAKER) (test code = 414) MONOCYTES ABSOLUTE COUNT (BEAKER) 0.45 K/ L 0.30-0.82 (test code = 415) EOSINOPHILS ABSOLUTE COUNT 0.03 K/ L 0.04-0.54 L (BEAKER) (test code = 416) BASOPHILS ABSOLUTE COUNT (BEAKER) 0.05 K/ L 0.01-0.08 (test code = 417) IMMATURE GRANULOCYTES-RELATIVE 0 % 0-1 PERCENT (BEAKER) (test code = 2801) ECG/EKG [id number] 16:36:07Hyacinth Gonzales MD 02/15/2020 5:28 PMECG/EKG InterpretationDate/Time: 02/15/2020 4:38 PMPerformedby: Hyacinth Gonzales MDAuthorized by: Hyacinth Gonzales MD The ECG was interpreted by ED physician.The ECG is interpreted as sinus rhythm. Rate is tachycardic. Heart rate is 148 BPM.ST segments normal. T waves normal.[facility] PROTHROMBIN TIME/[id number] 06:20:00 Test Item Value Reference Range Interpretation Comments PROTIME (BEAKER) (test code = 17.3 seconds 11.9-14.2 H 759) INR (BEAKER) (test code = 370) 1.5 <=5.9 Effective 12/11/2018: PT Reference Range ChangeNew: 11.9-14.2 Previous: 11.7- 14.7RECOMMENDED COUMADIN/WARFARIN INR THERAPY RANGESSTANDARD DOSE: 2.0-3.0 Includes: PROPHYLAXIS for venous thrombosis, systemic embolization; TREATMENT for venous thrombosis and/or pulmonary embolus.HIGH RISK: Target INR is2.5-3.5 for patients wiht mechanical heart valves.SARS-COV2/RT-PCR ([facility]) 2020-01-25 16:53:00 Test Item Value Reference Range Interpretation Comments SARS-COV2/RT-PCR (test code = Negative Not Detected, Negative [id number]) SARS-COV-2 PERFORMING LAB [facility] (test code = 8047783) Negative result for this test determines that SARS-CoV-2 RNA was not present in the specimen above the Limit of Detection (LOD). However, Negative results do not preclude SARS-CoV-2 infection and should not be used as the sole basis for treatment or patient management decisions. Negative results mustbe combined with clinical observations, patient history, and epidemiological information. A false negative result may occur if a specimen is improperly collected, transported or handled. A false negative result should be considered if patient's recent exposures or clinical presentation indicate that COVID-19 (SARS-CoV-2) is likely and diagnostic tests for other causes of illness are negative. Re-testing should be considered in cases of suspected false negatives.The limit of detection for this assay is 800 copies/mL.This SARS CoV-2 test is a real-time RT-PCR test intended for the qualitative detection of nucleic acid from SARS-CoV-2 in a nasopharyngeal swab specimen collected from individuals suspected of COVID-19 by their healthcare provider.This test has not been Food and Drug Administration (FDA) cleared or approved. This is a modified version of an approved [...] is revoked under Section 564(g) of the Act.Fact Sheet for Healthcare Providers:https://www.[employer]/sites/default/files/product/documents/Fact_Shevy juarezo_NW_Vyhsjyifw_Tjnm_WNSR-VaU-0.pdfFact Sheet for Healthcare Patients:https://www.[employer]/sites/default/files/product/ documents/Nxtl_Dlhng_Orpoorvh_Lfqq_UWWS-HfC-0.pdfPerforming Laboratory:[facility], [place] [address]YR, ABDOMEN - PELVIS, PANCREAS [id number] 09:59:00Anesthesia:->NoneFINAL REPORT ABDOMINAL AND PELVIS CT DATED 01/25/2020 CLINICAL INFORMATION: E pigastric pain TECHNIQUE: Axial images of the abdomen and pelvis were obtained from diaphragm to the pubic symphysis with and without intravenous contrast. This exam was performed according to our departmental dose-optimization program, which includes automated exposure control, adjustment of the mAand/or kV according to patient size and/or use of interactive reconstruction technique. COMMENT: Liver and spleen are normal in size without focal abnormality. Gallbladder is distended. No gallstone or biliary dilatation is noted. Pancreas is normal in caliber. Inflammatory changes are seen surrounding the body and tail of the pancreas consistent with the acute pancreatitis. No pseudocyst, hemorrhagic pancreatitis, or pancreatic necrosis is seen. Pancreatic duct is normal in caliber. The splenic and portal, and hepatic veins are patent. The distal superior mesenteric vein is small in caliber. Multiple collateral veins are seen in the omentum and adjacent to the stomach. The adrenals Adrenals are unremarkable. Both kidneys are normal in size and functioning. No hydronephrosis, hydroureter, urolithiasis is seen. The small and large bowel are unremarkable. Appendix is not visualized. No mass, adenopathy or ascites is present. IMPRESSION: Acute pancreatitis. Signed: Carrington Garcia MDReport Verified Date/Time: 01/25/2020 09:59:37 Reading Location: [facility] C013X Ortho Consult Reading Room [facility] abd/pelvis - pancreas [id number] 09:59:00Interface, External Ris In - 01/25/2020 10:01 AM CDTFINAL REPORT ABDOMINAL AND PELVIS CT DATED 01/25/2020 CLINICAL INFORMATION: Epigastric pain TECHNIQUE: Axial images of the abdomen and pelvis were obtained from diaphragm to the pubic symphysis with and without intravenous contrast. This exam was performed according to our departmental dose-optimization program, which includ es automated exposure control, adjustment of the mA and/or kV according to patient size and/or use of interactive reconstruction technique. COMMENT: Liver and spleen are normal in size without focal abnormality. Gallbladder is distended. No gallstone or biliary dilatation is noted. Pancreas is normal in caliber. Inflammatory changes are seen surrounding the body and tail of the pancreas consistent with the acute pancreatitis. No pseudocyst, hemorrhagic pancreatitis, or pancreatic necrosis is seen.Pancreatic duct is normal in caliber. The splenic and portal, and hepatic veins are patent. The distal superior mesenteric vein is small in caliber. Multiple collateral veins are seen in the omentum and adjacent to the stomach. The adrenals Adrenals are unremarkable. Both kidneys are normal in size and functioning. No hydronephrosis, hydroureter, urolithiasis is seen. The small and large bowel are unremarkable. Appendix is not visualized. No mass, adenopathy or ascites is present. IMPRESSION: Acute pancreatitis. Signed: Carrington Garcia MDReport Verified Date/Time: 01/25/2020 09:59:37 Reading Location: [facility] B1 C013X Ortho Consult Reading Room [facility]OS[facility]2020-07-12 05:18:00 Test Item Value Reference Range Interpretation Comments PHOSPHORUS (BEAKER) (test code = 3.1 mg/dL 2.3-4.7 604) [employer] Unit Adjuster ID - PIAYA [id number] 05:18:00 Test Item Value Reference Range Interpretation Comments MAGNESIUM (BEAKER) (test code = 1.8 mg/dL 1.6-2.6 627) [employer] Unit Adjuster ID Laura FRIEDMAN LBASIC METABOLIC [id number] 05:18:00 Test Item Value Reference Range Interpretation Comments SODIUM (BEAKER) 135 meq/L 136-145 L (test code = 381) POTASSIUM (BEAKER) 4.5 meq/L 3.5-5.1 (test code = 379) CHLORIDE (BEAKER) 104 meq/L 98-107 (test code = 382) CO2 (BEAKER) (test 24 meq/L 22-29 code = 355) BLOOD UREA NITROGEN 10 mg/dL 7-21 (BEAKER) (test code = 354) CREATININE (BEAKER) 0.66 mg/dL 0.57-1.25 (test code = 358) GLUCOSE RANDOM 128 mg/dL 70-105 H (BEAKER) (test code = 652) CALCIUM (BEAKER) 9.0 mg/dL 8.4-10.2 (test code = 697) EGFR (BEAKER) (test 139 mL/min/1.73 ESTIM ATED GFR IS code = 1092) sq m NOT ACCURATE CREATININE CLEARANCE IN PREDICTING GLOMERULAR FILTRATION RATE . ESTIMATED GFR I S NOT APPLICABLE FOR DIALYSIS PATIEN TS. [employer] Unit Adjuster ID Laura FRIEDMAN LHEPATIC FUNCTION [id number] 05:18:00 Test Item Value Reference Range Interpretation Comments TOTAL PROTEIN (BEAKER) (test code = 6.7 gm/dL 6.0-8.3 770) ALBUMIN (BEAKER) (test code = 1145) 3.8 g/dL 3.5-5.0 BILIRUBIN TOTAL (BEAKER) (test code 0.6 mg/dL 0.2-1.2 = 377) BILIRUBIN DIRECT (BEAKER) (test 0.3 mg/dL 0.1-0.5 code = 706) ALKALINE PHOSPHATASE (BEAKER) (test 93 U/L 40-150 code = 346) AST (SGOT) (BEAKER) (test code = 43 U/L 5-34 H 353) ALT (SGPT) (BEAKER) (test code = 32 U/L 6-55 347) [employer] Unit Adjuster ID Laura FRIEDMAN LCBC W/PLT COUNT & AUTO [id number] 04:42:00 Test Item Value Reference Range Interpretation Comments WHITE BLOOD CELL COUNT 5.1 K/ L 3.5-10.5 (BEAKER) (test code = 775) RED BLOOD CELL COUNT 4.28 M/ L 4.63-6.08 L (BEAKER) (test code = 761) HEMOGLOBIN (BEAKER) 12.8 GM/DL 13.7-17.5 L Discord[place] nt HGB (test code = 410) result com pared to previous result ; clinical correl ation required. HEMATOCRIT (BEAKER) 38.2 % 40.1-51.0 L (test code = 411) MEAN CORPUSCULAR 89.3 fL 79.0-92.2 VOLUME (BEAKER) (test code = 753) MEAN CORPUSCULAR 29.9 pg 25.7-32.2 HEMOGLOBIN (BEAKER) (test code = 751) MEAN CORPUSCULAR 33.5 GM/DL 32.3-36.5 HEMOGLOBIN CONC (BEAKER) (test code = 752) RED CELL DISTRIBUTION 13.7 % 11.6-14.4 WIDTH (BEAKER) (test code = 412) PLATELET COUNT 130 K/CU MM 150-450 L (BEAKER) (test code = 756) MEAN PLATELET VOLUME 10.6 fL 9.4-12.4 (BEAKER) (test code = 754) NUCLEATED RED BLOOD 0 /100 WBC 0-0 CELLS (BEAKER) (test code = 413) NEUTROPHILS RELATIVE 58 % PERCENT (BEAKER) (test code = 429) LYMPHOCYTES RELATIVE 29 % PERCENT (BEAKER) (test code = 430) MONOCYTES RELATIVE 10 % PERCENT (BEAKER) (test code = 431) EOSINOPHILS RELATIVE 2 % PERCENT (BEAKER) (test code = 432) BASOPHILS RELATIVE 0 % PERCENT (BEAKER) (test code = 437) NEUTROPHILS ABSOLUTE 2.93 K/ L 1.78-5.38 COUNT (BEAKER) (test code = 670) LYMPHOCYTES ABSOLUTE 1.49 K/ L 1.32-3.57 COUNT (BEAKER) (test code = 414) MONOCYTES ABSOLUTE 0.52 K/ L 0.30-0.82 COUNT (BEAKER) (test code = 415) EOSINOPHILS ABSOLUTE 0.10 K/ L 0.04-0.54 COUNT (BEAKER) (test code = 416) BASOPHILS ABSOLUTE 0.02 K/ L 0.01-0.08 COUNT (BEAKER) (test code = 417) IMMATURE 0 % 0-1 GRANULOCYTES-RELATIVE PERCENT (BEAKER) (test code = 2801) PROTHROMBIN [id number] 04:35:00 Test Item Value Reference Range Interpretation Comments PROTIME (BEAKER) (test code = 27.5 seconds 11.9-14.2 H 759) INR (BEAKER) (test code = 370) 2.6 <=5.9 Effective 12/11/2018: PT Reference Range ChangeNew: 11.9-14.2 Previous: 11.7- 14.7RECOMMENDED COUMADIN/WARFARIN INR THERAPY RANGESSTANDARD DOSE: 2.0-3.0 Includes: PROPHYLAXIS for venous thrombosis, systemic embolization; TREATMENT for venous thrombosis and/or pulmonary embolus.HIGH RISK: Target INR is2.5-3.5 for patients wiht mechanical heart valves.PROTHROMBIN TIME/[id number] 12:59:00 Test Item Value Reference Range Interpretation Comments PROTIME (BEAKER) (test code = 39.4 seconds 11.9-14.2 H 759) INR (BEAKER) (test code = 370) 4.2 <=5.9 Effective 12/11/2018: PT Reference Range ChangeNew: 11.9-14.2 Previous: 11.7- 14.7RECOMMENDED COUMADIN/WARFARIN INR THERAPY RANGESSTANDARD DOSE: 2.0-3.0 Includes: PROPHYLAXIS for venous thrombosis, systemic embolization; TREATMENT for venous thrombosis and/or pulmonary embolus.HIGH RISK: Target INR is2.5-3.5 for patients wiht mechanical heart valves.[id number] 06:39:00 Test Item Value Reference Range Interpretation Comments PHOSPHORUS (BEAKER) (test code = 4.0 mg/dL 2.3-4.7 604) [employer] Adjuster ID - IDALIA [id number] 06:39:00 Test Item Value Reference Range Interpretation Comments MAGNESIUM (BEAKER) (test code = 1.7 mg/dL 1.6-2.6 627) [employer] Adjuster ID - IDALIA LBASIC METABOLIC [id number] 06:39:00 Test Item Value Reference Range Interpretation Comments SODIUM (BEAKER) 134 meq/L 136-145 L (test code = 381) POTASSIUM (BEAKER) 3.9 meq/L 3.5-5.1 (test code = 379) CHLORIDE (BEAKER) 100 meq/L 98-107 (test code = 382) CO2 (BEAKER) (test 22 meq/L 22-29 code = 355) BLOOD UREA NITROGEN 16 mg/dL 7-21 (BEAKER) (test code = 354) CREATININE (BEAKER) 0.73 mg/dL 0.57-1.25 (test code = 358) GLUCOSE RANDOM 118 mg/dL 70-105 H (BEAKER) (test code = 652) CALCIUM (BEAKER) 9.4 mg/dL 8.4-10.2 (test code = 697) EGFR (BEAKER) (test 124 mL/min/1.73 ESTIM ATED GFR IS code = 1092) sq m NOT ACCURATE CREATININE CLEARANCE IN PREDICTING GLOMERULAR FILTRATION RATE . ESTIMATED GFR I S NOT APPLICABLE FOR DIALYSIS PATIEN TS. [employer] Adjuster ID - PIAYA LHEPATIC FUNCTION [id number] 06:39:00 Test Item Value Reference Range Interpretation Comments TOTAL PROTEIN (BEAKER) (test code = 7.4 gm/dL 6.0-8.3 770) ALBUMIN (BEAKER) (test code = 1145) 4.3 g/dL 3.5-5.0 BILIRUBIN TOTAL (BEAKER) (test code 0.8 mg/dL 0.2-1.2 = 377) BILIRUBIN DIRECT (BEAKER) (test 0.4 mg/dL 0.1-0.5 code = 706) ALKALINE PHOSPHATASE (BEAKER) (test 112 U/L 40-150 code = 346) AST (SGOT) (BEAKER) (test code = 28 U/L 5-34 353) ALT (SGPT) (BEAKER) (test code = 28 U/L 6-55 347) [employer] Adjuster ID - PIAYA LCBC W/PLT COUNT & AUTO [id number] 04:28:00 Test Item Value Reference Range Interpretation Comments WHITE BLOOD CELL COUNT (BEAKER) 10.0 K/ L 3.5-10.5 (test code = 775) RED BLOOD CELL COUNT (BEAKER) 5.32 M/ L 4.63-6.08 (test code = 761) HEMOGLOBIN (BEAKER) (test code = 15.8 GM/DL 13.7-17.5 410) HEMATOCRIT (BEAKER) (test code = 45.7 % 40.1-51.0 411) MEAN CORPUSCULAR VOLUME (BEAKER) 85.9 fL 79.0-92.2 (test code = 753) MEAN CORPUSCULAR HEMOGLOBIN 29.7 pg 25.7-32.2 (BEAKER) (test code = 751) MEAN CORPUSCULAR HEMOGLOBIN CONC 34.6 GM/DL 32.3-36.5 (BEAKER) (test code = 752) RED CELL DISTRIBUTION WIDTH 13.7 % 11.6-14.4 (BEAKER) (test code = 412) PLATELET COUNT (BEAKER) (test 183 K/CU MM 150-450 code = 756) MEAN PLATELET VOLUME (BEAKER) 9.5 fL 9.4-12.4 (test code = 754) NUCLEATED RED BLOOD CELLS 0 /100 WBC 0-0 (BEAKER) (test code = 413) NEUTROPHILS RELATIVE PERCENT 75 % (BEAKER) (test code = 429) LYMPHOCYTES RELATIVE PERCENT 14 % (BEAKER) (test code = 430) MONOCYTES RELATIVE PERCENT 9 % (BEAKER) (test code = 431) EOSINOPHILS RELATIVE PERCENT 1 % (BEAKER) (test code = 432) BASOPHILS RELATIVE PERCENT 0 % (BEAKER) (test code = 437) NEUTROPHILS ABSOLUTE COUNT 7.46 K/ L 1.78-5.38 H (BEAKER) (test code = 670) LYMPHOCYTES ABSOLUTE COUNT 1.44 K/ L 1.32-3.57 (BEAKER) (test code = 414) MONOCYTES ABSOLUTE COUNT (BEAKER) 0.88 K/ L 0.30-0.82 H (test code = 415) EOSINOPHILS ABSOLUTE COUNT 0.06 K/ L 0.04-0.54 (BEAKER) (test code = 416) BASOPHILS ABSOLUTE COUNT (BEAKER) 0.03 K/ L 0.01-0.08 (test code = 417) IMMATURE GRANULOCYTES-RELATIVE 1 % 0-1 PERCENT (BEAKER) (test code = 2801) [id number] 20:27:00 Test Item Value Reference Range Interpretation Comments Ethanol Lvl (test code = <10 <=10 mg/dL 5643-2) RADHA (test code = RADHA) [employer] Adjuster ID - BS Lab Interpretation (test Normal code = 34501-1) [facility] 20:27:00 Test Item Value Reference Range Interpretation Comments ETHANOL (BEAKER) (test code = 400) < mg/dL <=10 [employer] Adjuster ID - [facility] (Hemogram only)2020-01-23 20:10:00 Test Item Value Reference Range Interpretation Comments WBC (test code = 6690-2) 10.9 3.5- 10.5 K/L H RBC (test code = 789-8) 5.50 4.63- 6.08 M/L MCHC (test code = 786-4) 34.0 32.3- 36.5 GM/DL Hematocrit (test code = 4544-3) 47.0 % 40.1-51 MCV (test code = 787-2) 85.5 fL 79-92.2 MCH (test code = 785-6) 29.1 pg 25.7-32.2 RDW (test code = 788-0) 13.4 % 11.6-14.4 Platelets (test code = 777-3) 204 150- 450 K/CU MM MPV (test code = 54126-4) 9.3 fL 9.4-12.4 L nRBC (test code = 413) 0 0- 0 /100 WBC Lab Interpretation (test code = Abnormal 24893-8) [facility] (HEMOGRAM ONLY)2020-01-23 20:10:00 Test Item Value Reference Range Interpretation Comments WHITE BLOOD CELL COUNT (BEAKER) 10.9 K/ L 3.5-10.5 H (test code = 775) RED BLOOD CELL COUNT (BEAKER) 5.50 M/ L 4.63-6.08 (test code = 761) HEMOGLOBIN (BEAKER) (test code = 16.0 GM/DL 13.7-17.5 410) HEMATOCRIT (BEAKER) (test code = 47.0 % 40.1-51.0 411) MEAN CORPUSCULAR VOLUME (BEAKER) 85.5 fL 79.0-92.2 (test code = 753) MEAN CORPUSCULAR HEMOGLOBIN 29.1 pg 25.7-32.2 (BEAKER) (test code = 751) MEAN CORPUSCULAR HEMOGLOBIN CONC 34.0 GM/DL 32.3-36.5 (BEAKER) (test code = 752) RED CELL DISTRIBUTION WIDTH 13.4 % 11.6-14.4 (BEAKER) (test code = 412) PLATELET COUNT (BEAKER) (test 204 K/CU MM 150-450 code = 756) MEAN PLATELET VOLUME (BEAKER) 9.3 fL 9.4-12.4 L (test code = 754) NUCLEATED RED BLOOD CELLS 0 /100 WBC 0-0 (BEAKER) (test code = 413) PROTHROMBIN TIME/[id number] 14:19:00 Test Item Value Reference Range Interpretation Comments PROTIME (BEAKER) (test code = 52.0 seconds 11.9-14.2 H 759) INR (BEAKER) (test code = 370) 6.0 <=5.9 HH Effective 12/11/2018: PT Reference Range ChangeNew: 11.9-14.2 Previous: 11.7- 14.7RECOMMENDED COUMADIN/WARFARIN INR THERAPY RANGESSTANDARD DOSE: 2.0-3.0 Includes: PROPHYLAXIS for venous thrombosis, systemic embolization; TREATMENT for venous thrombosis and/or pulmonary embolus.HIGH RISK: Target INR is2.5-3.5 for patients wiht mechanical heart valves.SARS-COV2/RT-PCR ([facility]) 2020-01-23 12:40:00 Test Item Value Reference Range Interpretation Comments SARS-COV2/RT-PCR (test code = Negative Not Detected, Negative 4072039) SARS-COV-2 PERFORMING LAB [facility] (test code = 6887923) Negative result for this test determines that SARS-CoV-2 RNA was not present in the specimen above the Limit of Detection (LOD). However, Negative results do not preclude SARS-CoV-2 infection and should not be used as the sole basis for treatment or patient management decisions. Negative results mustbe combined with clinical observations, patient history, and epidemiological information. A false negative result may occur if a specimen is improperly collected, transported or handled. A false negative result should be considered if patient's recent exposures or clinical presentation indicate that COVID-19 (SARS-CoV-2) is likely and diagnostic tests for other causes of illness are negative. Re-testing should be considered in cases of suspected false negatives.The limit of detection for this assay is 800 copies/mL.This SARS CoV-2 test is a real-time RT-PCR test intended for the qualitative detection of nucleic acid from SARS-CoV-2 in a nasopharyngeal swab specimen collected from individuals suspected of COVID-19 by their healthcare provider.This test has not been Food and Drug Administration (FDA) cleared or approved. This is a modified version of an approved [...] is revoked under Section 564(g) of the Act.Fact Sheet for Healthcare Providers:https://www.[employer]/sites/default/files/product/documents/Fact_Shee i_WE_Ngxlaajew_Qlkg_UIQR-QuE-5.pdfFact Sheet for Healthcare Patients:https://www.[employer]/sites/default/files/product/ documents/Bcij_Fzbjb_Jhttfmth_Bdbr_TLPB-GyU-1.pdfPerforming Laboratory:[facility] [place] [id number] (HEMOGRAM ONLY) 2020-01-23 11:10:00 Test Item Value Reference Range Interpretation Comments WHITE BLOOD CELL COUNT (BEAKER) 12.7 K/ L 3.5-10.5 H (test code = 775) RED BLOOD CELL COUNT (BEAKER) 4.93 M/ L 4.63-6.08 (test code = 761) HEMOGLOBIN (BEAKER) (test code = 14.5 GM/DL 13.7-17.5 410) HEMATOCRIT (BEAKER) (test code = 42.5 % 40.1-51.0 411) MEAN CORPUSCULAR VOLUME (BEAKER) 86.2 fL 79.0-92.2 (test code = 753) MEAN CORPUSCULAR HEMOGLOBIN 29.4 pg 25.7-32.2 (BEAKER) (test code = 751) MEAN CORPUSCULAR HEMOGLOBIN CONC 34.1 GM/DL 32.3-36.5 (BEAKER) (test code = 752) RED CELL DISTRIBUTION WIDTH 13.4 % 11.6-14.4 (BEAKER) (test code = 412) PLATELET COUNT (BEAKER) (test 174 K/CU MM 150-450 code = 756) MEAN PLATELET VOLUME (BEAKER) 9.2 fL 9.4-12.4 L (test code = 754) NUCLEATED RED BLOOD CELLS 0 /100 WBC 0-0 (BEAKER) (test code = 413) CBC W/PLT COUNT & AUTO [id number] 07:23:00 Test Item Value Reference Range Interpretation Comments WHITE BLOOD CELL COUNT (BEAKER) 9.0 K/ L 3.5-10.5 (test code = 775) RED BLOOD CELL COUNT (BEAKER) 4.66 M/ L 4.63-6.08 (test code = 761) HEMOGLOBIN (BEAKER) (test code = 13.6 GM/DL 13.7-17.5 L 410) HEMATOCRIT (BEAKER) (test code = 41.1 % 40.1-51.0 411) MEAN CORPUSCULAR VOLUME (BEAKER) 88.2 fL 79.0-92.2 (test code = 753) MEAN CORPUSCULAR HEMOGLOBIN 29.2 pg 25.7-32.2 (BEAKER) (test code = 751) MEAN CORPUSCULAR HEMOGLOBIN CONC 33.1 GM/DL 32.3-36.5 (BEAKER) (test code = 752) RED CELL DISTRIBUTION WIDTH 13.7 % 11.6-14.4 (BEAKER) (test code = 412) PLATELET COUNT (BEAKER) (test 181 K/CU MM 150-450 code = 756) MEAN PLATELET VOLUME (BEAKER) 9.1 fL 9.4-12.4 L (test code = 754) NUCLEATED RED BLOOD CELLS 0 /100 WBC 0-0 (BEAKER) (test code = 413) NEUTROPHILS RELATIVE PERCENT 52 % (BEAKER) (test code = 429) LYMPHOCYTES RELATIVE PERCENT 40 % (BEAKER) (test code = 430) MONOCYTES RELATIVE PERCENT 6 % (BEAKER) (test code = 431) EOSINOPHILS RELATIVE PERCENT 1 % (BEAKER) (test code = 432) BASOPHILS RELATIVE PERCENT 1 % (BEAKER) (test code = 437) NEUTROPHILS ABSOLUTE COUNT 4.72 K/ L 1.78-5.38 (BEAKER) (test code = 670) LYMPHOCYTES ABSOLUTE COUNT 3.59 K/ L 1.32-3.57 H (BEAKER) (test code = 414) MONOCYTES ABSOLUTE COUNT (BEAKER) 0.55 K/ L 0.30-0.82 (test code = 415) EOSINOPHILS ABSOLUTE COUNT 0.07 K/ L 0.04-0.54 (BEAKER) (test code = 416) BASOPHILS ABSOLUTE COUNT (BEAKER) 0.05 K/ L 0.01-0.08 (test code = 417) IMMATURE GRANULOCYTES-RELATIVE 0 % 0-1 PERCENT (BEAKER) (test code = 2801) [id number] 06:24:00 Test Item Value Reference Range Interpretation Comments PHOSPHORUS (BEAKER) (test code = 3.1 mg/dL 2.3-4.7 604) [employer] Adjuster ID - [id number] 06:24:00 Test Item Value Reference Range Interpretation Comments MAGNESIUM (BEAKER) (test code = 1.5 mg/dL 1.6-2.6 L 627) [employer] Adjuster ID - BSBASIC METABOLIC [id number] 06:24:00 Test Item Value Reference Range Interpretation Comments SODIUM (BEAKER) 140 meq/L 136-145 (test code = 381) POTASSIUM (BEAKER) 3.9 meq/L 3.5-5.1 (test code = 379) CHLORIDE (BEAKER) 106 meq/L 98-107 (test code = 382) CO2 (BEAKER) (test 20 meq/L 22-29 L code = 355) BLOOD UREA NITROGEN 16 mg/dL 7-21 (BEAKER) (test code = 354) CREATININE (BEAKER) 0.71 mg/dL 0.57-1.25 (test code = 358) GLUCOSE RANDOM 75 mg/dL 70-105 (BEAKER) (test code = 652) CALCIUM (BEAKER) 8.8 mg/dL 8.4-10.2 (test code = 697) EGFR (BEAKER) (test 128 mL/min/1.73 ESTIM ATED GFR IS code = 1092) sq m NOT ACCURATE CREATININE CLEARANCE IN PREDICTING GLOMERULAR FILTRATION RATE . ESTIMATED GFR I S NOT APPLICABLE FOR DIALYSIS PATIEN TS. [employer] Adjuster ID - BSHEPATIC FUNCTION [id number] 06:24:00 Test Item Value Reference Range Interpretation Comments TOTAL PROTEIN (BEAKER) (test code = 6.9 gm/dL 6.0-8.3 770) ALBUMIN (BEAKER) (test code = 1145) 4.2 g/dL 3.5-5.0 BILIRUBIN TOTAL (BEAKER) (test code 0.4 mg/dL 0.2-1.2 = 377) BILIRUBIN DIRECT (BEAKER) (test 0.2 mg/dL 0.1-0.5 code = 706) ALKALINE PHOSPHATASE (BEAKER) (test 87 U/L 40-150 code = 346) AST (SGOT) (BEAKER) (test code = 33 U/L 5-34 353) ALT (SGPT) (BEAKER) (test code = 31 U/L 6-55 347) [employer] Adjuster ID - BSLactic acid, [id number] 06:17:00 Test Item Value Reference Range Interpretation Comments Lactate, Venous (test code = 3.60 mmol/L 0.5-2.2 H 2872) RADHA (test code = RADHA) [employer] Adjuster ID - LA Lab Interpretation (test Abnormal code = 81789-7) [facility]CT[facility] ACID, [id number] 06:17:00 Test Item Value Reference Range Interpretation Comments LACTATE BLOOD VENOUS (2) (BEAKER) 3.60 mmol/L 0.50-2.20 H (test code = 2872) [employer] Adjuster ID - [id number] 18:47:00 Test Item Value Reference Range Interpretation Comments LIPASE (BEAKER) (test code = 749) 39 U/L 8-78 [employer] Adjuster ID - BSCOMPREHENSIVE METABOLIC [id number] 18:47:00 Test Item Value Reference Range Interpretation Comments TOTAL PROTEIN 7.7 gm/dL 6.0-8.3 (BEAKER) (test code = 770) ALBUMIN (BEAKER) 4.6 g/dL 3.5-5.0 (test code = 1145) ALKALINE PHOSPHATASE 99 U/L 40-150 (BEAKER) (test code = 346) BILIRUBIN TOTAL 0.2 mg/dL 0.2-1.2 (BEAKER) (test code = 377) SODIUM (BEAKER) (test 145 meq/L 136-145 code = 381) POTASSIUM (BEAKER) 3.7 meq/L 3.5-5.1 (test code = 379) CHLORIDE (BEAKER) 109 meq/L 98-107 H (test code = 382) CO2 (BEAKER) (test 24 meq/L 22-29 code = 355) BLOOD UREA NITROGEN 17 mg/dL 7-21 (BEAKER) (test code = 354) CREATININE (BEAKER) 0.73 mg/dL 0.57-1.25 (test code = 358) GLUCOSE RANDOM 94 mg/dL 70-105 (BEAKER) (test code = 652) CALCIUM (BEAKER) 9.1 mg/dL 8.4-10.2 (test code = 697) AST (SGOT) (BEAKER) 40 U/L 5-34 H (test code = 353) ALT (SGPT) (BEAKER) 44 U/L 6-55 (test code = 347) EGFR (BEAKER) (test 124 ESTIMATE D GFR IS code = 1092) mL/min/1.73 sq NOT ACCURA TE m CREATININE CLEARANCE IN PREDICTING GLOMERULAR FILTRATION RATE . ESTIMATED GFR I S NOT APPLICABLE FOR DIALYSIS PATIEN TS. [employer] Adjuster ID - [id number] 18:41:00 Test Item Value Reference Range Interpretation Comments PROTIME (BEAKER) (test code = 45.5 seconds 11.9-14.2 H 759) INR (BEAKER) (test code = 370) 5.0 <=5.9 PARTIAL THROMBOPLASTIN TIME 46.4 seconds 22.5-36.0 H (BEAKER) (test code = 760) Effective 12/11/2018: PT Reference Range ChangeNew: 11.9-14.2 Previous: 11.7- 14.7RECOMMENDED COUMADIN/WARFARIN INR THERAPY RANGESSTANDARD DOSE: 2.0-3.0 Includes: PROPHYLAXIS for venous thrombosis, systemic embolization; TREATMENT for venous thrombosis and/or pulmonary embolus.HIGH RISK: Target INR is2.5-3.5 for patients wiht mechanical heart valves.CBC W/PLT COUNT & AUTO [id number] 18:33:00 Test Item Value Reference Range Interpretation Comments WHITE BLOOD CELL COUNT (BEAKER) 13.0 K/ L 3.5-10.5 H (test code = 775) RED BLOOD CELL COUNT (BEAKER) 5.27 M/ L 4.63-6.08 (test code = 761) HEMOGLOBIN (BEAKER) (test code = 15.6 GM/DL 13.7-17.5 410) HEMATOCRIT (BEAKER) (test code = 45.9 % 40.1-51.0 411) MEAN CORPUSCULAR VOLUME (BEAKER) 87.1 fL 79.0-92.2 (test code = 753) MEAN CORPUSCULAR HEMOGLOBIN 29.6 pg 25.7-32.2 (BEAKER) (test code = 751) MEAN CORPUSCULAR HEMOGLOBIN CONC 34.0 GM/DL 32.3-36.5 (BEAKER) (test code = 752) RED CELL DISTRIBUTION WIDTH 13.8 % 11.6-14.4 (BEAKER) (test code = 412) PLATELET COUNT (BEAKER) (test 255 K/CU MM 150-450 code = 756) MEAN PLATELET VOLUME (BEAKER) 9.0 fL 9.4-12.4 L (test code = 754) NUCLEATED RED BLOOD CELLS 0 /100 WBC 0-0 (BEAKER) (test code = 413) NEUTROPHILS RELATIVE PERCENT 62 % (BEAKER) (test code = 429) LYMPHOCYTES RELATIVE PERCENT 34 % (BEAKER) (test code = 430) MONOCYTES RELATIVE PERCENT 4 % (BEAKER) (test code = 431) EOSINOPHILS RELATIVE PERCENT 0 % (BEAKER) (test code = 432) BASOPHILS RELATIVE PERCENT 1 % (BEAKER) (test code = 437) NEUTROPHILS ABSOLUTE COUNT 8.03 K/ L 1.78-5.38 H (BEAKER) (test code = 670) LYMPHOCYTES ABSOLUTE COUNT 4.34 K/ L 1.32-3.57 H (BEAKER) (test code = 414) MONOCYTES ABSOLUTE COUNT (BEAKER) 0.45 K/ L 0.30-0.82 (test code = 415) EOSINOPHILS ABSOLUTE COUNT 0.01 K/ L 0.04-0.54 L (BEAKER) (test code = 416) BASOPHILS ABSOLUTE COUNT (BEAKER) 0.06 K/ L 0.01-0.08 (test code = 417) IMMATURE GRANULOCYTES-RELATIVE 1 % 0-1 PERCENT (BEAKER) (test code = 2801) PROTHROMBIN TIME/[id number] 04:53:00 Test Item Value Reference Range Interpretation Comments PROTIME (BEAKER) (test code = 17.2 seconds 11.9-14.2 H 759) INR (BEAKER) (test code = 370) 1.5 <=5.9 Effective 12/11/2018: PT Reference Range ChangeNew: 11.9-14.2 Previous: 11.7- 14.7RECOMMENDED COUMADIN/WARFARIN INR THERAPY RANGESSTANDARD DOSE: 2.0-3.0 Includes: PROPHYLAXIS for venous thrombosis, systemic embolization; TREATMENT for venous thrombosis and/or pulmonary embolus.HIGH RISK: Target INR is2.5-3.5 for patients wiht mechanical heart valves.While on warfarin.PROTHROMBIN TIME/INR 2019-12-25 05:28:00 Test Item Value Reference Range Interpretation Comments PROTIME (BEAKER) (test code = 15.8 seconds 11.9-14.2 H 759) INR (BEAKER) (test code = 370) 1.3 <=5.9 Effective 12/11/2018: PT Reference Range ChangeNew: 11.9-14.2 Previous: 11.7- 14.7RECOMMENDED COUMADIN/WARFARIN INR THERAPY RANGESSTANDARD DOSE: 2.0-3.0 Includes: PROPHYLAXIS for venous thrombosis, systemic embolization; TREATMENT for venous thrombosis and/or pulmonary embolus.HIGH RISK: Target INR is2.5-3.5 for patients wiht mechanical heart valves.While on warfarin.PROTHROMBIN TIME/INR 2019-12-24 04:36:00 Test Item Value Reference Range Interpretation Comments PROTIME (BEAKER) (test code = 14.6 seconds 11.9-14.2 H 759) INR (BEAKER) (test code = 370) 1.2 <=5.9 Effective 12/11/2018: PT Reference Range ChangeNew: 11.9-14.2 Previous: 11.7- 14.7RECOMMENDED COUMADIN/WARFARIN INR THERAPY RANGESSTANDARD DOSE: 2.0-3.0 Includes: PROPHYLAXIS for venous thrombosis, systemic embolization; TREATMENT for venous thrombosis and/or pulmonary embolus.HIGH RISK: Target INR is2.5-3.5 for patients wiht mechanical heart valves.While on warfarin.PROTHROMBIN TIME/INR 2019-12-23 06:34:00 Test Item Value Reference Range Interpretation Comments PROTIME (BEAKER) (test code = 13.7 seconds 11.9-14.2 759) INR (BEAKER) (test code = 370) 1.1 <=5.9 Effective 12/11/2018: PT Reference Range ChangeNew: 11.9-14.2 Previous: 11.7- 14.7RECOMMENDED COUMADIN/WARFARIN INR THERAPY RANGESSTANDARD DOSE: 2.0-3.0 Includes: PROPHYLAXIS for venous thrombosis, systemic embolization; TREATMENT for venous thrombosis and/or pulmonary embolus.HIGH RISK: Target INR is2.5-3.5 for patients wiht mechanical heart valves.While on warfarin.Blood Culture - Routine (Left Venipuncture)2019-12-23 02:00:00 Test Item Value Reference Range Interpretation Comments Result (test code = No growth in 5 days 6463-4) [facility] CenterBLOOD [id number] 02:00:00 Test Item Value Reference Range Interpretation Comments CULTURE (BEAKER) (test No growth in 5 days code = 1095) BLOOD [id number] 02:00:00 Test Item Value Reference Range Interpretation Comments CULTURE (BEAKER) (test No growth in 5 days code = 1095) BASIC METABOLIC [id number] 06:21:00 Test Item Value Reference Range Interpretation Comments SODIUM (BEAKER) 143 meq/L 136-145 (test code = 381) POTASSIUM (BEAKER) 3.8 meq/L 3.5-5.1 (test code = 379) CHLORIDE (BEAKER) 110 meq/L 98-107 H (test code = 382) CO2 (BEAKER) (test 29 meq/L 22-29 code = 355) BLOOD UREA NITROGEN 8 mg/dL 7-21 (BEAKER) (test code = 354) CREATININE (BEAKER) 0.63 mg/dL 0.57-1.25 (test code = 358) GLUCOSE RANDOM 94 mg/dL 70-105 (BEAKER) (test code = 652) CALCIUM (BEAKER) 8.2 mg/dL 8.4-10.2 L (test code = 697) EGFR (BEAKER) (test 147 mL/min/1.73 ESTIM ATED GFR IS code = 1092) sq m NOT ACCURATE CREATININE CLEARANCE IN PREDICTING GLOMERULAR FILTRATION RATE . ESTIMATED GFR I S NOT APPLICABLE FOR DIALYSIS PATIEN TS. [employer] Adjuster ID - ANA MPROTHROMBIN TIME/[id number] 05:49:00 Test Item Value Reference Range Interpretation Comments PROTIME (BEAKER) (test code = 14.4 seconds 11.9-14.2 H 759) INR (BEAKER) (test code = 370) 1.2 <=5.9 Effective 12/11/2018: PT Reference Range ChangeNew: 11.9-14.2 Previous: 11.7- 14.7RECOMMENDED COUMADIN/WARFARIN INR THERAPY RANGESSTANDARD DOSE: 2.0-3.0 Includes: PROPHYLAXIS for venous thrombosis, systemic embolization; TREATMENT for venous thrombosis and/or pulmonary embolus.HIGH RISK: Target INR is2.5-3.5 for patients wiht mechanical heart valves.While on warfarin.CBC W/PLT COUNT & AUTO [id number] 05:47:00 Test Item Value Reference Range Interpretation Comments WHITE BLOOD CELL COUNT (BEAKER) 3.7 K/ L 3.5-10.5 (test code = 775) RED BLOOD CELL COUNT (BEAKER) 3.39 M/ L 4.63-6.08 L (test code = 761) HEMOGLOBIN (BEAKER) (test code = 10.4 GM/DL 13.7-17.5 L 410) HEMATOCRIT (BEAKER) (test code = 30.6 % 40.1-51.0 L 411) MEAN CORPUSCULAR VOLUME (BEAKER) 90.3 fL 79.0-92.2 (test code = 753) MEAN CORPUSCULAR HEMOGLOBIN 30.7 pg 25.7-32.2 (BEAKER) (test code = 751) MEAN CORPUSCULAR HEMOGLOBIN CONC 34.0 GM/DL 32.3-36.5 (BEAKER) (test code = 752) RED CELL DISTRIBUTION WIDTH 13.6 % 11.6-14.4 (BEAKER) (test code = 412) PLATELET COUNT (BEAKER) (test code 88 K/CU MM 150-450 L = 756) MEAN PLATELET VOLUME (BEAKER) 10.1 fL 9.4-12.4 (test code = 754) NUCLEATED RED BLOOD CELLS (BEAKER) 0 /100 WBC 0-0 (test code = 413) NEUTROPHILS RELATIVE PERCENT 53 % (BEAKER) (test code = 429) LYMPHOCYTES RELATIVE PERCENT 35 % (BEAKER) (test code = 430) MONOCYTES RELATIVE PERCENT 9 % (BEAKER) (test code = 431) EOSINOPHILS RELATIVE PERCENT 2 % (BEAKER) (test code = 432) BASOPHILS RELATIVE PERCENT 1 % (BEAKER) (test code = 437) NEUTROPHILS ABSOLUTE COUNT 1.97 K/ L 1.78-5.38 (BEAKER) (test code = 670) LYMPHOCYTES ABSOLUTE COUNT 1.31 K/ L 1.32-3.57 L (BEAKER) (test code = 414) MONOCYTES ABSOLUTE COUNT (BEAKER) 0.34 K/ L 0.30-0.82 (test code = 415) EOSINOPHILS ABSOLUTE COUNT 0.06 K/ L 0.04-0.54 (BEAKER) (test code = 416) BASOPHILS ABSOLUTE COUNT (BEAKER) 0.02 K/ L 0.01-0.08 (test code = 417) IMMATURE GRANULOCYTES-RELATIVE 1 % 0-1 PERCENT (BEAKER) (test code = 2801) PROTHROMBIN [id number] 05:45:00 Test Item Value Reference Range Interpretation Comments PROTIME (BEAKER) (test code = 15.4 seconds 11.9-14.2 H 759) INR (BEAKER) (test code = 370) 1.3 <=5.9 Effective 12/11/2018: PT Reference Range ChangeNew: 11.9-14.2 Previous: 11.7- 14.7RECOMMENDED COUMADIN/WARFARIN INR THERAPY RANGESSTANDARD DOSE: 2.0-3.0 Includes: PROPHYLAXIS for venous thrombosis, systemic embolization; TREATMENT for venous thrombosis and/or pulmonary embolus.HIGH RISK: Target INR is2.5-3.5 for patients wiht mechanical heart valves.POCT-GLUCOSE [id number] 17:45:00 Test Item Value Reference Range Interpretation Comments POC-GLUCOSE METER 96 mg/dL 70-110 : TESTED A T [facility] (BEAKER) (test code = [place], 1538) [address]: [employer]er/Techni daya ID = [id number] for BALBINA KOHLER BASIC METABOLIC [id number] 05:48:00 Test Item Value Reference Range Interpretation Comments SODIUM (BEAKER) 140 meq/L 136-145 (test code = 381) POTASSIUM (BEAKER) 4.6 meq/L 3.5-5.1 (test code = 379) CHLORIDE (BEAKER) 106 meq/L 98-107 (test code = 382) CO2 (BEAKER) (test 28 meq/L 22-29 code = 355) BLOOD UREA NITROGEN 7 mg/dL 7-21 (BEAKER) (test code = 354) CREATININE (BEAKER) 0.70 mg/dL 0.57-1.25 (test code = 358) GLUCOSE RANDOM 91 mg/dL 70-105 (BEAKER) (test code = 652) CALCIUM (BEAKER) 9.5 mg/dL 8.4-10.2 (test code = 697) EGFR (BEAKER) (test 130 mL/min/1.73 ESTIM ATED GFR IS code = 1092) sq m NOT ACCURATE CREATININE CLEARANCE IN PREDICTING GLOMERULAR FILTRATION RATE . ESTIMATED GFR I S NOT APPLICABLE FOR DIALYSIS PATIEN TS. [employer]er ID - ANA MPROTHROMBIN [id number] 05:25:00 Test Item Value Reference Range Interpretation Comments PROTIME (BEAKER) (test code = 14.2 seconds 11.9-14.2 759) INR (BEAKER) (test code = 370) 1.1 <=5.9 Effective 12/11/2018: PT Reference Range ChangeNew: 11.9-14.2 Previous: 11.7- 14.7RECOMMENDED COUMADIN/WARFARIN INR THERAPY RANGESSTANDARD DOSE: 2.0-3.0 Includes: PROPHYLAXIS for venous thrombosis, systemic embolization; TREATMENT for venous thrombosis and/or pulmonary embolus.HIGH RISK: Target INR is2.5-3.5 for patients wiht mechanical heart valves.CBC W/PLT COUNT & AUTO [id number] 05:16:00 Test Item Value Reference Range Interpretation Comments WHITE BLOOD CELL COUNT (BEAKER) 4.9 K/ L 3.5-10.5 (test code = 775) RED BLOOD CELL COUNT (BEAKER) 4.30 M/ L 4.63-6.08 L (test code = 761) HEMOGLOBIN (BEAKER) (test code = 13.0 GM/DL 13.7-17.5 L 410) HEMATOCRIT (BEAKER) (test code = 38.5 % 40.1-51.0 L 411) MEAN CORPUSCULAR VOLUME (BEAKER) 89.5 fL 79.0-92.2 (test code = 753) MEAN CORPUSCULAR HEMOGLOBIN 30.2 pg 25.7-32.2 (BEAKER) (test code = 751) MEAN CORPUSCULAR HEMOGLOBIN CONC 33.8 GM/DL 32.3-36.5 (BEAKER) (test code = 752) RED CELL DISTRIBUTION WIDTH 13.6 % 11.6-14.4 (BEAKER) (test code = 412) PLATELET COUNT (BEAKER) (test 117 K/CU MM 150-450 L code = 756) MEAN PLATELET VOLUME (BEAKER) 9.9 fL 9.4-12.4 (test code = 754) NUCLEATED RED BLOOD CELLS 0 /100 WBC 0-0 (BEAKER) (test code = 413) NEUTROPHILS RELATIVE PERCENT 57 % (BEAKER) (test code = 429) LYMPHOCYTES RELATIVE PERCENT 33 % (BEAKER) (test code = 430) MONOCYTES RELATIVE PERCENT 7 % (BEAKER) (test code = 431) EOSINOPHILS RELATIVE PERCENT 2 % (BEAKER) (test code = 432) BASOPHILS RELATIVE PERCENT 0 % (BEAKER) (test code = 437) NEUTROPHILS ABSOLUTE COUNT 2.81 K/ L 1.78-5.38 (BEAKER) (test code = 670) LYMPHOCYTES ABSOLUTE COUNT 1.64 K/ L 1.32-3.57 (BEAKER) (test code = 414) MONOCYTES ABSOLUTE COUNT (BEAKER) 0.36 K/ L 0.30-0.82 (test code = 415) EOSINOPHILS ABSOLUTE COUNT 0.09 K/ L 0.04-0.54 (BEAKER) (test code = 416) BASOPHILS ABSOLUTE COUNT (BEAKER) 0.02 K/ L 0.01-0.08 (test code = 417) IMMATURE GRANULOCYTES-RELATIVE 0 % 0-1 PERCENT (BEAKER) (test code = 2801) SARS-COV2/RT-PCR ([facility])2019-12-20 20:33:00 Test Item Value Reference Range Interpretation Comments SARS-COV2/RT-PCR (test code = Negative Not Detected, Negative ) SARS-COV-2 PERFORMING LAB CPL (test code = 3010639) BASIC METABOLIC [id number] 04:43:00 Test Item Value Reference Range Interpretation Comments SODIUM (BEAKER) 137 meq/L 136-145 (test code = 381) POTASSIUM (BEAKER) 5.0 meq/L 3.5-5.1 (test code = 379) CHLORIDE (BEAKER) 105 meq/L 98-107 (test code = 382) CO2 (BEAKER) (test 26 meq/L 22-29 code = 355) BLOOD UREA NITROGEN 5 mg/dL 7-21 L (BEAKER) (test code = 354) CREATININE (BEAKER) 0.67 mg/dL 0.57-1.25 (test code = 358) GLUCOSE RANDOM 97 mg/dL 70-105 (BEAKER) (test code = 652) CALCIUM (BEAKER) 8.9 mg/dL 8.4-10.2 (test code = 697) EGFR (BEAKER) (test 137 mL/min/1.73 ESTIM ATED GFR IS code = 1092) sq m NOT ACCURATE CREATININE CLEARANCE IN PREDICTING GLOMERULAR FILTRATION RATE . ESTIMATED GFR I S NOT APPLICABLE FOR DIALYSIS PATIEN TS. [employer] Spr[employer] Unit Adjuster ID - JEFFRY WPROTHROMBIN TIME/[id number] 04:18:00 Test Item Value Reference Range Interpretation Comments PROTIME (BEAKER) (test code = 15.6 seconds 11.9-14.2 H 759) INR (BEAKER) (test code = 370) 1.3 <=5.9 Effective 12/11/2018: PT Reference Range ChangeNew: 11.9-14.2 Previous: 11.7- 14.7RECOMMENDED COUMADIN/WARFARIN INR THERAPY RANGESSTANDARD DOSE: 2.0-3.0 Includes: PROPHYLAXIS for venous thrombosis, systemic embolization; TREATMENT for venous thrombosis and/or pulmonary embolus.HIGH RISK: Target INR is2.5-3.5 for patients wiht mechanical heart valves.COMPREHENSIVE METABOLIC PANEL 2019-12-19 07:24:00 Test Item Value Reference Range Interpretation Comments TOTAL PROTEIN 5.4 gm/dL 6.0-8.3 L (BEAKER) (test code = 770) ALBUMIN (BEAKER) 3.3 g/dL 3.5-5.0 L (test code = 1145) ALKALINE PHOSPHATASE 66 U/L 40-150 (BEAKER) (test code = 346) BILIRUBIN TOTAL 0.8 mg/dL 0.2-1.2 (BEAKER) (test code = 377) SODIUM (BEAKER) (test 143 meq/L 136-145 code = 381) POTASSIUM (BEAKER) 3.1 meq/L 3.5-5.1 L (test code = 379) CHLORIDE (BEAKER) 108 meq/L 98-107 H (test code = 382) CO2 (BEAKER) (test 29 meq/L 22-29 code = 355) BLOOD UREA NITROGEN 9 mg/dL 7-21 (BEAKER) (test code = 354) CREATININE (BEAKER) 0.66 mg/dL 0.57-1.25 (test code = 358) GLUCOSE RANDOM 86 mg/dL 70-105 (BEAKER) (test code = 652) CALCIUM (BEAKER) 7.4 mg/dL 8.4-10.2 L (test code = 697) AST (SGOT) (BEAKER) 18 U/L 5-34 (test code = 353) ALT (SGPT) (BEAKER) 16 U/L 6-55 (test code = 347) EGFR (BEAKER) (test 139 ESTIMATE D GFR IS code = 1092) mL/min/1.73 sq NOT ACCURA TE m CREATININE CLEARANCE IN PREDICTING GLOMERULAR FILTRATION RATE . ESTIMATED GFR I S NOT APPLICABLE FOR DIALYSIS PATIEN TS. [employer] Spr[employer] Unit Adjuster ID - PIAYA LPROTHROMBIN TIME/[id number] 07:03:00 Test Item Value Reference Range Interpretation Comments PROTIME (BEAKER) (test code = 16.7 seconds 11.9-14.2 H 759) INR (BEAKER) (test code = 370) 1.4 <=5.9 Effective 12/11/2018: PT Reference Range ChangeNew: 11.9-14.2 Previous: 11.7- 14.7RECOMMENDED COUMADIN/WARFARIN INR THERAPY RANGESSTANDARD DOSE: 2.0-3.0 Includes: PROPHYLAXIS for venous thrombosis, systemic embolization; TREATMENT for venous thrombosis and/or pulmonary embolus.HIGH RISK: Target INR is2.5-3.5 for patients wiht mechanical heart valves.CBC W/PLT COUNT & AUTO [id number] 06:37:00 Test Item Value Reference Range Interpretation Comments WHITE BLOOD CELL COUNT (BEAKER) 4.2 K/ L 3.5-10.5 (test code = 775) RED BLOOD CELL COUNT (BEAKER) 3.99 M/ L 4.63-6.08 L (test code = 761) HEMOGLOBIN (BEAKER) (test code = 11.9 GM/DL 13.7-17.5 L 410) HEMATOCRIT (BEAKER) (test code = 35.5 % 40.1-51.0 L 411) MEAN CORPUSCULAR VOLUME (BEAKER) 89.0 fL 79.0-92.2 (test code = 753) MEAN CORPUSCULAR HEMOGLOBIN 29.8 pg 25.7-32.2 (BEAKER) (test code = 751) MEAN CORPUSCULAR HEMOGLOBIN CONC 33.5 GM/DL 32.3-36.5 (BEAKER) (test code = 752) RED CELL DISTRIBUTION WIDTH 13.6 % 11.6-14.4 (BEAKER) (test code = 412) PLATELET COUNT (BEAKER) (test 117 K/CU MM 150-450 L code = 756) MEAN PLATELET VOLUME (BEAKER) 9.7 fL 9.4-12.4 (test code = 754) NUCLEATED RED BLOOD CELLS 0 /100 WBC 0-0 (BEAKER) (test code = 413) NEUTROPHILS RELATIVE PERCENT 62 % (BEAKER) (test code = 429) LYMPHOCYTES RELATIVE PERCENT 28 % (BEAKER) (test code = 430) MONOCYTES RELATIVE PERCENT 8 % (BEAKER) (test code = 431) EOSINOPHILS RELATIVE PERCENT 1 % (BEAKER) (test code = 432) BASOPHILS RELATIVE PERCENT 1 % (BEAKER) (test code = 437) NEUTROPHILS ABSOLUTE COUNT 2.57 K/ L 1.78-5.38 (BEAKER) (test code = 670) LYMPHOCYTES ABSOLUTE COUNT 1.17 K/ L 1.32-3.57 L (BEAKER) (test code = 414) MONOCYTES ABSOLUTE COUNT (BEAKER) 0.34 K/ L 0.30-0.82 (test code = 415) EOSINOPHILS ABSOLUTE COUNT 0.05 K/ L 0.04-0.54 (BEAKER) (test code = 416) BASOPHILS ABSOLUTE COUNT (BEAKER) 0.03 K/ L 0.01-0.08 (test code = 417) IMMATURE GRANULOCYTES-RELATIVE 1 % 0-1 PERCENT (BEAKER) (test code = 2801) POCT-GLUCOSE [id number] 22:24:00 Test Item Value Reference Range Interpretation Comments POC-GLUCOSE METER 145 mg/dL 70-110 H : TESTED A T [facility] (BEAKER) (test code = [place], 1538) [address]: [employer] Spr[employer] Unit Adjuster/Techni daya ID = [id number] for KAILYN GRESHAM RAPID DRUG SCREEN, [id number] 11:21:00 Test Item Value Reference Range Interpretation Comments BARBITURATE URINE (BEAKER) (test Negative Negative code = 725) BENZODIAZEPINE SCREEN URINE (BEAKER) Negative Negative (test code = 726) COCAINE (METAB.) SCREEN (BEAKER) Negative Negative (test code = 1164) METHADONE SCREEN (BEAKER) (test code Negative Negative = 1436) OPIATE SCREEN URINE (BEAKER) (test Positive Negative A code = 734) CANNABINOID SCREEN URINE (BEAKER) Negative Negative (test code = 727) AMPH/METHAMPH SCREEN (BEAKER) (test Negative Negative code = 1438) PHENCYCLIDINE SCREEN URINE (BEAKER) Negative Negative (test code = 608) PH UA (BEAKER) (test code = 467) 6.0 5.0-8.0 DRUG CUTOFF CONC.Cocaine 300 ng/mL Cannabinoid 50 ng/mLBenzodiazepine 200 ng/mLBarbiturate 200 ng/mLPhencyclidine 25 ng/mLOpiate 300 ng/mLMethadone 300 ng/mLAmphetamine/ 1000 ng/mL MethamphetamineThis assay provides an unconfirmed qualitative test result for the clinical management of patients in emergency situations. Chain of custody not maintained. Some tywl-oaj-rlvmbof medications, as well as adulterants, may cause inaccurate results. Clinical correlation should be applied. A more comprehensivedrug screen or confirmation of a detected drug may be performed upon request.[employer] Unit Adjuster ID - [auto][employer] Unit Adjuster ID - AAHAMIDUrinalysis with Microscopic If [id number] 11:03:00 Test Item Value Reference Range Interpretation Comments Color, UA (test code = Yellow 5778-6) Clarity, UA (test code = Clear 5767-9) Specific Eckerman, UA (test 1.021 1.001-1.035 code = 5811-5) pH, UA (test code = 6.0 5.0-8.0 5803-2) Protein, UA (test code = Negative Negative 69909-7) Glucose, UA (test code = Negative Negative 365) Ketones, UA (test code = 60 mg/dL Negative A 2514-8) Bilirubin, UA (test code = Negative Negative 83285-6) Blood, UA (test code = Negative Negative 30802-7) Nitrite, UA (test code = Negative Negative 5802-4) Leukocytes, UA (test code Negative Negative = 5799-2) Urobilinogen, UA (test 0.2 mg/dL 0.2-1 code = 90279-1) Specimen Source (test code = 2795) RADHA (test code = RADHA) [employer] Unit Adjuster ID - [auto] Lab Interpretation (test Abnormal code = 61156-2) [facility] WITH MICROSCOPIC IF [id number] 11:03:00 Test Item Value Reference Range Interpretation Comments COLOR (BEAKER) (test code = 470) Yellow CLARITY (BEAKER) (test code = 469) Clear SPECIFIC GRAVITY UA (BEAKER) (test 1.021 1.001-1.035 code = 468) PH UA (BEAKER) (test code = 467) 6.0 5.0-8.0 PROTEIN UA (BEAKER) (test code = Negative Negative 464) GLUCOSE UA (BEAKER) (test code = Negative Negative 365) KETONES UA (BEAKER) (test code = 60 mg/dL Negative A 371) BILIRUBIN UA (BEAKER) (test code = Negative Negative 462) BLOOD UA (BEAKER) (test code = 461) Negative Negative NITRITE UA (BEAKER) (test code = Negative Negative 465) LEUKOCYTE ESTERASE UA (BEAKER) Negative Negative (test code = 466) UROBILINOGEN UA (BEAKER) (test code 0.2 mg/dL 0.2-1.0 = 463) SOURCE(BEAKER) (test code = 2795) [employer] Unit Adjuster ID - [auto]TROPONIN [id number] 10:56:00 Test Item Value Reference Range Interpretation Comments TROPONIN I (BEAKER) (test code = [...] failure, acidosis, acute neurological disease, and persistent tachyarrhythmia.[employer] Spr[employer] Unit Adjuster ID - LALACTIC ACID, VENOUS 2019-12-18 10:45:00 Test Item Value Reference Range Interpretation Comments LACTATE BLOOD VENOUS (2) (BEAKER) 0.80 mmol/L 0.50-2.20 (test code = 2872) [employer] Spr[employer] Unit Adjuster ID - LABlood gas, [id number] 07:08:00 Test Item Value Reference Range Interpretation Comments pH, Arterial (test code = 2744-1) 7.46 7.35-7.45 H pCO2, Arterial (test code = 33 35- 45 mmHg L 2018-8) pO2, Arterial (test code = 230 80- 90 mmHg H 3-7) O2 Sat, Arterial (test code = 99.6 % 96-97 H 2708-6) HCO3, Arterial (test code = 23 mmol/L 21-29 1959-4) Base Excess, Arterial (test code -0.5 mmol/L -2-3 = 1925-7) Patient Temperature (test code = 37.0 C 8310-5) FIO2 (test code = 1819) 21 % Lab Interpretation (test code = Abnormal 10621-2) [facility] CenterBLOOD GAS, [id number] 07:08:00 Test Item Value Reference Range Interpretation Comments PH ARTERIAL (BEAKER) (test code = 7.46 7.35-7.45 H 383) PCO2 ARTERIAL (BEAKER) (test code 33 mmHg 35-45 L = 384) PO2 ARTERIAL (BEAKER) (test code 230 mmHg 80-90 H = 385) O2 SATURATION ARTERIAL (BEAKER) 99.6 % 96.0-97.0 H (test code = 386) HCO3 ARTERIAL (BEAKER) (test code 23 mmol/L -29 = 388) BASE EXCESS ARTERIAL (BEAKER) -0.5 mmol/L -2.0-3.0 (test code = 387) PATIENT TEMPERATURE (BEAKER) 37.0 C (test code = 1818) FIO2 (BEAKER) (test code = 1819) 21.0 % POCT-GLUCOSE [id number] 07:04:00 Test Item Value Reference Range Interpretation Comments POC-GLUCOSE METER 132 mg/dL 70-110 H : TESTED A T [facility] (BEAKER) (test code = [place], 1538) [address]: [employer] Spr[employer] Unit Adjuster/Techni daya ID = [id number] for [place] POCT-GLUCOSE [id number] 06:34:00 Test Item Value Reference Range Interpretation Comments POC-GLUCOSE METER 69 mg/dL 70-110 L : [facility] (GALEN[facility] (test code = [place], 1538) [address]: [employer] Spr[employer] Unit Adjuster/Techni daya ID = [id number] for RED GARCIA LACTIC ACID, [id number] 03:18:00 Test Item Value Reference Range Interpretation Comments LACTATE BLOOD VENOUS 5.16 mmol/L 0.50-2.20 HH Specime n slightly (2) (BEAKER) (test hemolyzed code = 9782) [employer] Spr[employer] Unit Adjuster ID - LATROPONIN [id number] 03:17:00 Test Item Value Reference Range Interpretation Comments TROPONIN I (GALEN) (test code = 397) < ng/mL 0.00-0.03 [...] failure, acidosis, acute neurological disease, and persistent tachyarrhythmia.[employer] Spr[employer] Unit Adjuster ID - LAPROTHROMBIN TIME/INR 2019-12-18 03:14:00 Test Item Value Reference Range Interpretation Comments PROTIME (GALEN) (test code = 48.1 seconds 11.9-14.2 H 759) INR (GALEN) (test code = 370) 5.4 <=5.9 Effective 12/11/2018: PT Reference Range ChangeNew: 11.9-14.2 Previous: 11.7- 14.7RECOMMENDED COUMADIN/WARFARIN INR THERAPY RANGESSTANDARD DOSE: 2.0-3.0 Includes: PROPHYLAXIS for venous thrombosis, systemic embolization; TREATMENT for venous thrombosis and/or pulmonary embolus.HIGH RISK: Target INR is2.5-3.5 for patients wiht mechanical heart valves.BASIC METABOLIC [id number] 03:09:00 Test Item Value Reference Range Interpretation Comments SODIUM (BEAKER) 137 meq/L 136-145 (test code = 381) POTASSIUM (BEAKER) 4.0 meq/L 3.5-5.1 (test code = 379) CHLORIDE (BEAKER) 105 meq/L 98-107 (test code = 382) CO2 (BEAKER) (test 17 meq/L 22-29 L code = 355) BLOOD UREA NITROGEN 14 mg/dL 7-21 (BEAKER) (test code = 354) CREATININE (BEAKER) 0.65 mg/dL 0.57-1.25 (test code = 358) GLUCOSE RANDOM 106 mg/dL 70-105 H (BEAKER) (test code = 652) CALCIUM (BEAKER) 8.9 mg/dL 8.4-10.2 (test code = 697) EGFR (BEAKER) (test 141 mL/min/1.73 ESTIM ATED GFR IS code = 1092) sq m NOT ACCURATE CREATININE CLEARANCE IN PREDICTING GLOMERULAR FILTRATION RATE . ESTIMATED GFR I S NOT APPLICABLE FOR DIALYSIS PATIEN TS. [employer] Spray Unit Adjuster ID - LACBC W/PLT COUNT & AUTO [id number] 02:56:00 Test Item Value Reference Range Interpretation Comments WHITE BLOOD CELL COUNT (BEAKER) 10.8 K/ L 3.5-10.5 H (test code = 775) RED BLOOD CELL COUNT (BEAKER) 4.52 M/ L 4.63-6.08 L (test code = 761) HEMOGLOBIN (BEAKER) (test code = 13.7 GM/DL 13.7-17.5 410) HEMATOCRIT (BEAKER) (test code = 40.5 % 40.1-51.0 411) MEAN CORPUSCULAR VOLUME (BEAKER) 89.6 fL 79.0-92.2 (test code = 753) MEAN CORPUSCULAR HEMOGLOBIN 30.3 pg 25.7-32.2 (BEAKER) (test code = 751) MEAN CORPUSCULAR HEMOGLOBIN CONC 33.8 GM/DL 32.3-36.5 (BEAKER) (test code = 752) RED CELL DISTRIBUTION WIDTH 14.0 % 11.6-14.4 (BEAKER) (test code = 412) PLATELET COUNT (BEAKER) (test 192 K/CU MM 150-450 code = 756) MEAN PLATELET VOLUME (BEAKER) 9.5 fL 9.4-12.4 (test code = 754) NUCLEATED RED BLOOD CELLS 0 /100 WBC 0-0 (BEAKER) (test code = 413) NEUTROPHILS RELATIVE PERCENT 66 % (BEAKER) (test code = 429) LYMPHOCYTES RELATIVE PERCENT 26 % (BEAKER) (test code = 430) MONOCYTES RELATIVE PERCENT 6 % (BEAKER) (test code = 431) EOSINOPHILS RELATIVE PERCENT 1 % (BEAKER) (test code = 432) BASOPHILS RELATIVE PERCENT 1 % (BEAKER) (test code = 437) NEUTROPHILS ABSOLUTE COUNT 7.14 K/ L 1.78-5.38 H (BEAKER) (test code = 670) LYMPHOCYTES ABSOLUTE COUNT 2.83 K/ L 1.32-3.57 (BEAKER) (test code = 414) MONOCYTES ABSOLUTE COUNT (BEAKER) 0.61 K/ L 0.30-0.82 (test code = 415) EOSINOPHILS ABSOLUTE COUNT 0.05 K/ L 0.04-0.54 (BEAKER) (test code = 416) BASOPHILS ABSOLUTE COUNT (BEAKER) 0.06 K/ L 0.01-0.08 (test code = 417) IMMATURE GRANULOCYTES-RELATIVE 1 % 0-1 PERCENT (BEAKER) (test code = 2801) CT, [id number] 22:21:00FINAL REPORT CLINICAL HISTORY: Pancreatitis, patient on Coumadin with flank and abdominal bleeding FINDINGS: Multiple axial images of the abdomen and pelvis were performed after the uncomplicated administration of IV contrast. Oral contrast was not given. This exam was performed according to our departmental dose-optimization program, which includes automated exposure control, adjustment of the mA and/or kV according to patient size and/or use of the iterative reconstructiontechnique. Examination is limited by minimal intra-abdominal and retroperitoneal fat. Comparison: Abdominal MRI dated 11/15/2019, CTA abdomen dated 10/30/2019 Lower chest: Clear lungs. No pleural effusionor pneumothorax. Visualized cardiac contours normal. Liver: Hepatic steatosis Gallbladder and biliary tree: No significant findings. Spleen: No significant findings. Adrenal Glands: No significant findings. Kidneys and ureters: No significant findings. Stomach and Duodenum: No significant findings. Pancreas: No peripancreatic inflammatory change or organized fluid collection. No peripancreatic or retroperitoneal hematoma. Bowel: No significant findings. Appendix: Normal. Bladder: No significant findings. 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 There are prominent portosystemic collaterals in the upper abdomen. Reproductive organs: No significant findings. Other: No free air, fluid or adenopathy. Skeleton: No acute bony abnormality. IMPRESSION: No acute CT abnormality. Specifically, there is no evidence of complicated pancreatitis. No retroperitoneal hematoma is present. Hepatic steatosis. 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 Signed: Fahad Mcmanus MDReport Verified Date/Time: 12/17/2019 22:21:28 LACTIC ACID, [id number] 20:58:00 Test Item Value Reference Range Interpretation Comments LACTATE BLOOD VENOUS 3.98 mmol/L 0.50-2.20 H Specime n slightly (2) (BEAKER) (test hemolyzed code = 2872) [employer] Unit Adjuster ID - [id number] 20:38:00 Test Item Value Reference Range Interpretation Comments LIPASE (BEAKER) (test code = 749) 40 U/L 8-78 [employer] Spr[employer] Unit Adjuster ID - BSCOMPREHENSIVE METABOLIC [id number] 20:38:00 Test Item Value Reference Range Interpretation Comments TOTAL PROTEIN 8.4 gm/dL 6.0-8.3 H (BEAKER) (test code = 770) ALBUMIN (BEAKER) 5.0 g/dL 3.5-5.0 (test code = 1145) ALKALINE PHOSPHATASE 107 U/L 40-150 (BEAKER) (test code = 346) BILIRUBIN TOTAL 0.5 mg/dL 0.2-1.2 (BEAKER) (test code = 377) SODIUM (BEAKER) (test 144 meq/L 136-145 code = 381) POTASSIUM (BEAKER) 4.0 meq/L 3.5-5.1 (test code = 379) CHLORIDE (BEAKER) 106 meq/L 98-107 (test code = 382) CO2 (BEAKER) (test 24 meq/L 22-29 code = 355) BLOOD UREA NITROGEN 14 mg/dL 7-21 (BEAKER) (test code = 354) CREATININE (BEAKER) 0.74 mg/dL 0.57-1.25 (test code = 358) GLUCOSE RANDOM 85 mg/dL 70-105 (BEAKER) (test code = 652) CALCIUM (BEAKER) 9.6 mg/dL 8.4-10.2 (test code = 697) AST (SGOT) (BEAKER) 24 U/L 5-34 (test code = 353) ALT (SGPT) (BEAKER) 25 U/L 6-55 (test code = 347) EGFR (BEAKER) (test 122 ESTIMATE D GFR IS code = 1092) mL/min/1.73 sq NOT ACCURA TE m CREATININE CLEARANCE IN PREDICTING GLOMERULAR FILTRATION RATE . ESTIMATED GFR I S NOT APPLICABLE FOR DIALYSIS PATIEN TS. [employer] Spray Unit Adjuster ID - [id number] 20:33:00 Test Item Value Reference Range Interpretation Comments PROTIME (BEAKER) (test code = 44.7 seconds 11.9-14.2 H 759) INR (BEAKER) (test code = 370) 4.9 <=5.9 PARTIAL THROMBOPLASTIN TIME 59.3 seconds 22.5-36.0 H (BEAKER) (test code = 760) Effective 12/11/2018: PT Reference Range ChangeNew: 11.9-14.2 Previous: 11.7- 14.7RECOMMENDED COUMADIN/WARFARIN INR THERAPY RANGESSTANDARD DOSE: 2.0-3.0 Includes: PROPHYLAXIS for venous thrombosis, systemic embolization; TREATMENT for venous thrombosis and/or pulmonary embolus.HIGH RISK: Target INR is2.5-3.5 for patients wiht mechanical heart valves.Occult blood x 1, [id number] 20:26:00 Test Item Value Reference Range Interpretation Comments Occult blood (test code = 2335-8) Positive Negative A Lab Interpretation (test code = Abnormal 14707-9) [facility] Center[facility], [id number] 20:26:00 Test Item Value Reference Range Interpretation Comments FECAL OCCULT BLOOD (BEAKER) (test Positive Negative A code = 618) CBC W/PLT COUNT & AUTO [id number] 20:23:00 Test Item Value Reference Range Interpretation Comments WHITE BLOOD CELL COUNT (BEAKER) 13.9 K/ L 3.5-10.5 H (test code = 775) RED BLOOD CELL COUNT (BEAKER) 5.60 M/ L 4.63-6.08 (test code = 761) HEMOGLOBIN (BEAKER) (test code = 16.6 GM/DL 13.7-17.5 410) HEMATOCRIT (BEAKER) (test code = 49.0 % 40.1-51.0 411) MEAN CORPUSCULAR VOLUME (BEAKER) 87.5 fL 79.0-92.2 (test code = 753) MEAN CORPUSCULAR HEMOGLOBIN 29.6 pg 25.7-32.2 (BEAKER) (test code = 751) MEAN CORPUSCULAR HEMOGLOBIN CONC 33.9 GM/DL 32.3-36.5 (BEAKER) (test code = 752) RED CELL DISTRIBUTION WIDTH 14.1 % 11.6-14.4 (BEAKER) (test code = 412) PLATELET COUNT (BEAKER) (test 271 K/CU MM 150-450 code = 756) MEAN PLATELET VOLUME (BEAKER) 8.9 fL 9.4-12.4 L (test code = 754) NUCLEATED RED BLOOD CELLS 0 /100 WBC 0-0 (BEAKER) (test code = 413) NEUTROPHILS RELATIVE PERCENT 66 % (BEAKER) (test code = 429) LYMPHOCYTES RELATIVE PERCENT 28 % (BEAKER) (test code = 430) MONOCYTES RELATIVE PERCENT 4 % (BEAKER) (test code = 431) EOSINOPHILS RELATIVE PERCENT 0 % (BEAKER) (test code = 432) BASOPHILS RELATIVE PERCENT 1 % (BEAKER) (test code = 437) NEUTROPHILS ABSOLUTE COUNT 9.15 K/ L 1.78-5.38 H (BEAKER) (test code = 670) LYMPHOCYTES ABSOLUTE COUNT 3.94 K/ L 1.32-3.57 H (BEAKER) (test code = 414) MONOCYTES ABSOLUTE COUNT (BEAKER) 0.58 K/ L 0.30-0.82 (test code = 415) EOSINOPHILS ABSOLUTE COUNT 0.04 K/ L 0.04-0.54 (BEAKER) (test code = 416) BASOPHILS ABSOLUTE COUNT (BEAKER) 0.07 K/ L 0.01-0.08 (test code = 417) IMMATURE GRANULOCYTES-RELATIVE 1 % 0-1 PERCENT (BEAKER) (test code = 2801) PROTHROMBIN [id number] 04:20:00 Test Item Value Reference Range Interpretation Comments PROTIME (BEAKER) (test code = 22.3 seconds 11.9-14.2 H 759) INR (BEAKER) (test code = 370) 2.0 <=5.9 Effective 12/11/2018: PT Reference Range ChangeNew: 11.9-14.2 Previous: 11.7- 14.7RECOMMENDED COUMADIN/WARFARIN INR THERAPY RANGESSTANDARD DOSE: 2.0-3.0 Includes: PROPHYLAXIS for venous thrombosis, systemic embolization; TREATMENT for venous thrombosis and/or pulmonary embolus.HIGH RISK: Target INR is2.5-3.5 for patients wiht mechanical heart valves.BASIC METABOLIC [id number] 04:18:00 Test Item Value Reference Range Interpretation Comments SODIUM (BEAKER) 140 meq/L 136-145 (test code = 381) POTASSIUM (BEAKER) 4.4 meq/L 3.5-5.1 (test code = 379) CHLORIDE (BEAKER) 107 meq/L 98-107 (test code = 382) CO2 (BEAKER) (test 26 meq/L 22-29 code = 355) BLOOD UREA NITROGEN 14 mg/dL 7-21 (BEAKER) (test code = 354) CREATININE (BEAKER) 0.76 mg/dL 0.57-1.25 (test code = 358) GLUCOSE RANDOM 96 mg/dL 70-105 (BEAKER) (test code = 652) CALCIUM (BEAKER) 9.2 mg/dL 8.4-10.2 (test code = 697) EGFR (BEAKER) (test 118 mL/min/1.73 ESTIM ATED GFR IS code = 1092) sq m NOT ACCURATE CREATININE CLEARANCE IN PREDICTING GLOMERULAR FILTRATION RATE . ESTIMATED GFR I S NOT APPLICABLE FOR DIALYSIS PATIEN TS. [employer] Unit Adjuster ID - PIAYA LCBC W/PLT COUNT & AUTO [id number] 03:54:00 Test Item Value Reference Range Interpretation Comments WHITE BLOOD CELL COUNT (BEAKER) 3.8 K/ L 3.5-10.5 (test code = 775) RED BLOOD CELL COUNT (BEAKER) 4.15 M/ L 4.63-6.08 L (test code = 761) HEMOGLOBIN (BEAKER) (test code = 12.0 GM/DL 13.7-17.5 L 410) HEMATOCRIT (BEAKER) (test code = 36.3 % 40.1-51.0 L 411) MEAN CORPUSCULAR VOLUME (BEAKER) 87.5 fL 79.0-92.2 (test code = 753) MEAN CORPUSCULAR HEMOGLOBIN 28.9 pg 25.7-32.2 (BEAKER) (test code = 751) MEAN CORPUSCULAR HEMOGLOBIN CONC 33.1 GM/DL 32.3-36.5 (BEAKER) (test code = 752) RED CELL DISTRIBUTION WIDTH 14.3 % 11.6-14.4 (BEAKER) (test code = 412) PLATELET COUNT (BEAKER) (test 103 K/CU MM 150-450 L code = 756) MEAN PLATELET VOLUME (BEAKER) 9.2 fL 9.4-12.4 L (test code = 754) NUCLEATED RED BLOOD CELLS 0 /100 WBC 0-0 (BEAKER) (test code = 413) NEUTROPHILS RELATIVE PERCENT 53 % (BEAKER) (test code = 429) LYMPHOCYTES RELATIVE PERCENT 34 % (BEAKER) (test code = 430) MONOCYTES RELATIVE PERCENT 9 % (BEAKER) (test code = 431) EOSINOPHILS RELATIVE PERCENT 3 % (BEAKER) (test code = 432) BASOPHILS RELATIVE PERCENT 1 % (BEAKER) (test code = 437) NEUTROPHILS ABSOLUTE COUNT 2.03 K/ L 1.78-5.38 (BEAKER) (test code = 670) LYMPHOCYTES ABSOLUTE COUNT 1.31 K/ L 1.32-3.57 L (BEAKER) (test code = 414) MONOCYTES ABSOLUTE COUNT (BEAKER) 0.36 K/ L 0.30-0.82 (test code = 415) EOSINOPHILS ABSOLUTE COUNT 0.10 K/ L 0.04-0.54 (BEAKER) (test code = 416) BASOPHILS ABSOLUTE COUNT (BEAKER) 0.02 K/ L 0.01-0.08 (test code = 417) IMMATURE GRANULOCYTES-RELATIVE 0 % 0-1 PERCENT (BEAKER) (test code = 2801) BASIC METABOLIC [id number] 07:02:00 Test Item Value Reference Range Interpretation Comments SODIUM (BEAKER) 140 meq/L 136-145 (test code = 381) POTASSIUM (BEAKER) 3.8 meq/L 3.5-5.1 (test code = 379) CHLORIDE (BEAKER) 107 meq/L 98-107 (test code = 382) CO2 (BEAKER) (test 27 meq/L 22-29 code = 355) BLOOD UREA NITROGEN 8 mg/dL 7-21 (BEAKER) (test code = 354) CREATININE (BEAKER) 0.70 mg/dL 0.57-1.25 (test code = 358) GLUCOSE RANDOM 93 mg/dL 70-105 (BEAKER) (test code = 652) CALCIUM (BEAKER) 8.8 mg/dL 8.4-10.2 (test code = 697) EGFR (BEAKER) (test 130 mL/min/1.73 ESTIM ATED GFR IS code = 1092) sq m NOT ACCURATE CREATININE CLEARANCE IN PREDICTING GLOMERULAR FILTRATION RATE . ESTIMATED GFR I S NOT APPLICABLE FOR DIALYSIS PATIEN TS. [employer] Spray Unit Adjuster ID - PIAYA LPROTHROMBIN TIME/[id number] 06:44:00 Test Item Value Reference Range Interpretation Comments PROTIME (BEAKER) (test code = 23.6 seconds 11.9-14.2 H 759) INR (BEAKER) (test code = 370) 2.2 <=5.9 Effective 12/11/2018: PT Reference Range ChangeNew: 11.9-14.2 Previous: 11.7- 14.7RECOMMENDED COUMADIN/WARFARIN INR THERAPY RANGESSTANDARD DOSE: 2.0-3.0 Includes: PROPHYLAXIS for venous thrombosis, systemic embolization; TREATMENT for venous thrombosis and/or pulmonary embolus.HIGH RISK: Target INR is2.5-3.5 for patients wiht mechanical heart valves.CBC W/PLT COUNT & AUTO [id number] 06:38:00 Test Item Value Reference Range Interpretation Comments WHITE BLOOD CELL COUNT (BEAKER) 3.5 K/ L 3.5-10.5 (test code = 775) RED BLOOD CELL COUNT (BEAKER) 3.67 M/ L 4.63-6.08 L (test code = 761) HEMOGLOBIN (BEAKER) (test code = 11.0 GM/DL 13.7-17.5 L 410) HEMATOCRIT (BEAKER) (test code = 32.6 % 40.1-51.0 L 411) MEAN CORPUSCULAR VOLUME (BEAKER) 88.8 fL 79.0-92.2 (test code = 753) MEAN CORPUSCULAR HEMOGLOBIN 30.0 pg 25.7-32.2 (BEAKER) (test code = 751) MEAN CORPUSCULAR HEMOGLOBIN CONC 33.7 GM/DL 32.3-36.5 (BEAKER) (test code = 752) RED CELL DISTRIBUTION WIDTH 14.5 % 11.6-14.4 H (BEAKER) (test code = 412) PLATELET COUNT (BEAKER) (test code 96 K/CU MM 150-450 L = 756) MEAN PLATELET VOLUME (BEAKER) 9.4 fL 9.4-12.4 (test code = 754) NUCLEATED RED BLOOD CELLS (BEAKER) 0 /100 WBC 0-0 (test code = 413) NEUTROPHILS RELATIVE PERCENT 52 % (BEAKER) (test code = 429) LYMPHOCYTES RELATIVE PERCENT 34 % (BEAKER) (test code = 430) MONOCYTES RELATIVE PERCENT 11 % (BEAKER) (test code = 431) EOSINOPHILS RELATIVE PERCENT 2 % (BEAKER) (test code = 432) BASOPHILS RELATIVE PERCENT 1 % (BEAKER) (test code = 437) NEUTROPHILS ABSOLUTE COUNT 1.83 K/ L 1.78-5.38 (BEAKER) (test code = 670) LYMPHOCYTES ABSOLUTE COUNT 1.17 K/ L 1.32-3.57 L (BEAKER) (test code = 414) MONOCYTES ABSOLUTE COUNT (BEAKER) 0.38 K/ L 0.30-0.82 (test code = 415) EOSINOPHILS ABSOLUTE COUNT 0.07 K/ L 0.04-0.54 (BEAKER) (test code = 416) BASOPHILS ABSOLUTE COUNT (BEAKER) 0.03 K/ L 0.01-0.08 (test code = 417) IMMATURE GRANULOCYTES-RELATIVE 0 % 0-1 PERCENT (BEAKER) (test code = 2801) BASIC METABOLIC [id number] 06:12:00 Test Item Value Reference Range Interpretation Comments SODIUM (BEAKER) 144 meq/L 136-145 (test code = 381) POTASSIUM (BEAKER) 4.0 meq/L 3.5-5.1 (test code = 379) CHLORIDE (BEAKER) 112 meq/L 98-107 H (test code = 382) CO2 (BEAKER) (test 25 meq/L 22-29 code = 355) BLOOD UREA NITROGEN 6 mg/dL 7-21 L (BEAKER) (test code = 354) CREATININE (BEAKER) 0.65 mg/dL 0.57-1.25 (test code = 358) GLUCOSE RANDOM 87 mg/dL 70-105 (BEAKER) (test code = 652) CALCIUM (BEAKER) 8.2 mg/dL 8.4-10.2 L (test code = 697) EGFR (BEAKER) (test 141 mL/min/1.73 ESTIM ATED GFR IS code = 1092) sq m NOT ACCURATE CREATININE CLEARANCE IN PREDICTING GLOMERULAR FILTRATION RATE . ESTIMATED GFR I S NOT APPLICABLE FOR DIALYSIS PATIEN TS. Gun[employer] Spray Unit Adjuster ID - ANA MPROTHROMBIN TIME/[id number] 05:51:00 Test Item Value Reference Range Interpretation Comments PROTIME (BEAKER) (test code = 26.4 seconds 11.9-14.2 H 759) INR (BEAKER) (test code = 370) 2.5 <=5.9 Effective 12/11/2018: PT Reference Range ChangeNew: 11.9-14.2 Previous: 11.7- 14.7RECOMMENDED COUMADIN/WARFARIN INR THERAPY RANGESSTANDARD DOSE: 2.0-3.0 Includes: PROPHYLAXIS for venous thrombosis, systemic embolization; TREATMENT for venous thrombosis and/or pulmonary embolus.HIGH RISK: Target INR is2.5-3.5 for patients wiht mechanical heart valves.PROTHROMBIN TIME/[id number] 05:51:00 Test Item Value Reference Range Interpretation Comments PROTIME (BEAKER) (test code = 26.3 seconds 11.9-14.2 H 759) INR (BEAKER) (test code = 370) 2.5 <=5.9 Effective 12/11/2018: PT Reference Range ChangeNew: 11.9-14.2 Previous: 11.7- 14.7RECOMMENDED COUMADIN/WARFARIN INR THERAPY RANGESSTANDARD DOSE: 2.0-3.0 Includes: PROPHYLAXIS for venous thrombosis, systemic embolization; TREATMENT for venous thrombosis and/or pulmonary embolus.HIGH RISK: Target INR is2.5-3.5 for patients wiht mechanical heart valves.CBC W/PLT COUNT & AUTO [id number] 05:42:00 Test Item Value Reference Range Interpretation Comments WHITE BLOOD CELL COUNT (BEAKER) 3.6 K/ L 3.5-10.5 (test code = 775) RED BLOOD CELL COUNT (BEAKER) 3.56 M/ L 4.63-6.08 L (test code = 761) HEMOGLOBIN (BEAKER) (test code = 10.7 GM/DL 13.7-17.5 L 410) HEMATOCRIT (BEAKER) (test code = 31.9 % 40.1-51.0 L 411) MEAN CORPUSCULAR VOLUME (BEAKER) 89.6 fL 79.0-92.2 (test code = 753) MEAN CORPUSCULAR HEMOGLOBIN 30.1 pg 25.7-32.2 (BEAKER) (test code = 751) MEAN CORPUSCULAR HEMOGLOBIN CONC 33.5 GM/DL 32.3-36.5 (BEAKER) (test code = 752) RED CELL DISTRIBUTION WIDTH 14.6 % 11.6-14.4 H (BEAKER) (test code = 412) PLATELET COUNT (BEAKER) (test code 99 K/CU MM 150-450 L = 756) MEAN PLATELET VOLUME (BEAKER) 9.6 fL 9.4-12.4 (test code = 754) NUCLEATED RED BLOOD CELLS (BEAKER) 0 /100 WBC 0-0 (test code = 413) NEUTROPHILS RELATIVE PERCENT 51 % (BEAKER) (test code = 429) LYMPHOCYTES RELATIVE PERCENT 38 % (BEAKER) (test code = 430) MONOCYTES RELATIVE PERCENT 9 % (BEAKER) (test code = 431) EOSINOPHILS RELATIVE PERCENT 1 % (BEAKER) (test code = 432) BASOPHILS RELATIVE PERCENT 1 % (BEAKER) (test code = 437) NEUTROPHILS ABSOLUTE COUNT 1.84 K/ L 1.78-5.38 (BEAKER) (test code = 670) LYMPHOCYTES ABSOLUTE COUNT 1.35 K/ L 1.32-3.57 (BEAKER) (test code = 414) MONOCYTES ABSOLUTE COUNT (BEAKER) 0.33 K/ L 0.30-0.82 (test code = 415) EOSINOPHILS ABSOLUTE COUNT 0.05 K/ L 0.04-0.54 (BEAKER) (test code = 416) BASOPHILS ABSOLUTE COUNT (BEAKER) 0.02 K/ L 0.01-0.08 (test code = 417) IMMATURE GRANULOCYTES-RELATIVE 0 % 0-1 PERCENT (BEAKER) (test code = 2801) [id number] 10:46:00 Test Item Value Reference Interpretation Comments Range Aldosterone (test <1 ng/dL Adult Ref erence code = 7955315) Ranges for Aldosterone: Upright 8:00-10 :00 am < or = 28 ng/ dL Upright 4:00-6: 00 pm < or = 21 ng/ dL Supine 8:00-10 :00 am 3-16 ng/dL Th is test was developed a nd its analytical perf ormance characteristics havebeen deedee james by [facility] .It has not been cleare d or approved by FDA . This assay has been validatedpursua nt to the CLIA regula tions and is used for clinical purpos es. RADHA (test code = Performing Lab RADHA) [facility] [address] [place] [address] I Nafisa HEATH, PhD, DAJUAN [facility] METABOLIC [id number] 04:27:00 Test Item Value Reference Range Interpretation Comments SODIUM (BEAKER) 141 meq/L 136-145 (test code = 381) POTASSIUM (BEAKER) 3.9 meq/L 3.5-5.1 (test code = 379) CHLORIDE (BEAKER) 107 meq/L 98-107 (test code = 382) CO2 (BEAKER) (test 26 meq/L 22-29 code = 355) BLOOD UREA NITROGEN 8 mg/dL 7-21 (BEAKER) (test code = 354) CREATININE (BEAKER) 0.73 mg/dL 0.57-1.25 (test code = 358) GLUCOSE RANDOM 95 mg/dL 70-105 (BEAKER) (test code = 652) CALCIUM (BEAKER) 9.4 mg/dL 8.4-10.2 (test code = 697) EGFR (BEAKER) (test 124 mL/min/1.73 ESTIM ATED GFR IS code = 1092) sq m NOT ACCURATE CREATININE CLEARANCE IN PREDICTING GLOMERULAR FILTRATION RATE . ESTIMATED GFR I S NOT APPLICABLE FOR DIALYSIS PATIEN TS. Gun[employer] Spray Unit Adjuster ID - JEFFRY WPROTHROMBIN TIME/[id number] 04:21:00 Test Item Value Reference Range Interpretation Comments PROTIME (BEAKER) (test code = 23.2 seconds 11.9-14.2 H 759) INR (BEAKER) (test code = 370) 2.1 <=5.9 Effective 12/11/2018: PT Reference Range ChangeNew: 11.9-14.2 Previous: 11.7- 14.7RECOMMENDED COUMADIN/WARFARIN INR THERAPY RANGESSTANDARD DOSE: 2.0-3.0 Includes: PROPHYLAXIS for venous thrombosis, systemic embolization; TREATMENT for venous thrombosis and/or pulmonary embolus.HIGH RISK: Target INR is2.5-3.5 for patients wiht mechanical heart valves.CBC (HEMOGRAM ONLY)2019-11-28 03:52:00 Test Item Value Reference Range Interpretation Comments WHITE BLOOD CELL COUNT (BEAKER) 4.6 K/ L 3.5-10.5 (test code = 775) RED BLOOD CELL COUNT (BEAKER) 4.15 M/ L 4.63-6.08 L (test code = 761) HEMOGLOBIN (BEAKER) (test code = 12.6 GM/DL 13.7-17.5 L 410) HEMATOCRIT (BEAKER) (test code = 37.0 % 40.1-51.0 L 411) MEAN CORPUSCULAR VOLUME (BEAKER) 89.2 fL 79.0-92.2 (test code = 753) MEAN CORPUSCULAR HEMOGLOBIN 30.4 pg 25.7-32.2 (BEAKER) (test code = 751) MEAN CORPUSCULAR HEMOGLOBIN CONC 34.1 GM/DL 32.3-36.5 (BEAKER) (test code = 752) RED CELL DISTRIBUTION WIDTH 14.5 % 11.6-14.4 H (BEAKER) (test code = 412) PLATELET COUNT (BEAKER) (test 131 K/CU MM 150-450 L code = 756) MEAN PLATELET VOLUME (BEAKER) 9.2 fL 9.4-12.4 L (test code = 754) NUCLEATED RED BLOOD CELLS 0 /100 WBC 0-0 (BEAKER) (test code = 413) PROTHROMBIN TIME/[id number] 04:33:00 Test Item Value Reference Range Interpretation Comments PROTIME (BEAKER) (test code = 20.0 seconds 11.9-14.2 H 759) INR (BEAKER) (test code = 370) 1.8 <=5.9 Effective 12/11/2018: PT Reference Range ChangeNew: 11.9-14.2 Previous: 11.7- 14.7RECOMMENDED COUMADIN/WARFARIN INR THERAPY RANGESSTANDARD DOSE: 2.0-3.0 Includes: PROPHYLAXIS for venous thrombosis, systemic embolization; TREATMENT for venous thrombosis and/or pulmonary embolus.HIGH RISK: Target INR is2.5-3.5 for patients wiht mechanical heart valves.BASIC METABOLIC [id number] 04:27:00 Test Item Value Reference Range Interpretation Comments SODIUM (BEAKER) 141 meq/L 136-145 (test code = 381) POTASSIUM (BEAKER) 4.0 meq/L 3.5-5.1 (test code = 379) CHLORIDE (BEAKER) 107 meq/L 98-107 (test code = 382) CO2 (BEAKER) (test 29 meq/L 22-29 code = 355) BLOOD UREA NITROGEN 7 mg/dL 7-21 (BEAKER) (test code = 354) CREATININE (BEAKER) 0.66 mg/dL 0.57-1.25 (test code = 358) GLUCOSE RANDOM 98 mg/dL 70-105 (BEAKER) (test code = 652) CALCIUM (BEAKER) 9.1 mg/dL 8.4-10.2 (test code = 697) EGFR (BEAKER) (test 139 mL/min/1.73 ESTIM ATED GFR IS code = 1092) sq m NOT ACCURATE CREATININE CLEARANCE IN PREDICTING GLOMERULAR FILTRATION RATE . ESTIMATED GFR I S NOT APPLICABLE FOR DIALYSIS PATIEN TS. Gun[employer] Spray Unit Adjuster ID - LACBC W/PLT COUNT & AUTO [id number] 04:07:00 Test Item Value Reference Range Interpretation Comments WHITE BLOOD CELL COUNT (BEAKER) 3.8 K/ L 3.5-10.5 (test code = 775) RED BLOOD CELL COUNT (BEAKER) 3.96 M/ L 4.63-6.08 L (test code = 761) HEMOGLOBIN (BEAKER) (test code = 12.0 GM/DL 13.7-17.5 L 410) HEMATOCRIT (BEAKER) (test code = 35.4 % 40.1-51.0 L 411) MEAN CORPUSCULAR VOLUME (BEAKER) 89.4 fL 79.0-92.2 (test code = 753) MEAN CORPUSCULAR HEMOGLOBIN 30.3 pg 25.7-32.2 (BEAKER) (test code = 751) MEAN CORPUSCULAR HEMOGLOBIN CONC 33.9 GM/DL 32.3-36.5 (BEAKER) (test code = 752) RED CELL DISTRIBUTION WIDTH 14.6 % 11.6-14.4 H (BEAKER) (test code = 412) PLATELET COUNT (BEAKER) (test 109 K/CU MM 150-450 L code = 756) MEAN PLATELET VOLUME (BEAKER) 9.1 fL 9.4-12.4 L (test code = 754) NUCLEATED RED BLOOD CELLS 0 /100 WBC 0-0 (BEAKER) (test code = 413) NEUTROPHILS RELATIVE PERCENT 54 % (BEAKER) (test code = 429) LYMPHOCYTES RELATIVE PERCENT 34 % (BEAKER) (test code = 430) MONOCYTES RELATIVE PERCENT 9 % (BEAKER) (test code = 431) EOSINOPHILS RELATIVE PERCENT 2 % (BEAKER) (test code = 432) BASOPHILS RELATIVE PERCENT 1 % (BEAKER) (test code = 437) NEUTROPHILS ABSOLUTE COUNT 2.04 K/ L 1.78-5.38 (BEAKER) (test code = 670) LYMPHOCYTES ABSOLUTE COUNT 1.28 K/ L 1.32-3.57 L (BEAKER) (test code = 414) MONOCYTES ABSOLUTE COUNT (BEAKER) 0.35 K/ L 0.30-0.82 (test code = 415) EOSINOPHILS ABSOLUTE COUNT 0.07 K/ L 0.04-0.54 (BEAKER) (test code = 416) BASOPHILS ABSOLUTE COUNT (BEAKER) 0.02 K/ L 0.01-0.08 (test code = 417) IMMATURE GRANULOCYTES-RELATIVE 1 % 0-1 PERCENT (BEAKER) (test code = 2801) BASIC METABOLIC [id number] 05:37:00 Test Item Value Reference Range Interpretation Comments SODIUM (BEAKER) 143 meq/L 136-145 (test code = 381) POTASSIUM (BEAKER) 3.8 meq/L 3.5-5.1 (test code = 379) CHLORIDE (BEAKER) 113 meq/L 98-107 H (test code = 382) CO2 (BEAKER) (test 26 meq/L 22-29 code = 355) BLOOD UREA NITROGEN 5 mg/dL 7-21 L (BEAKER) (test code = 354) CREATININE (BEAKER) 0.68 mg/dL 0.57-1.25 (test code = 358) GLUCOSE RANDOM 94 mg/dL 70-105 (BEAKER) (test code = 652) CALCIUM (BEAKER) 8.3 mg/dL 8.4-10.2 L (test code = 697) EGFR (BEAKER) (test 134 mL/min/1.73 ESTIM ATED GFR IS code = 1092) sq m NOT ACCURATE CREATININE CLEARANCE IN PREDICTING GLOMERULAR FILTRATION RATE . ESTIMATED GFR I S NOT APPLICABLE FOR DIALYSIS PATIEN TS. Gunstock Spray Unit Adjuster ID - PIAYA LPROTHROMBIN TIME/[id number] 04:04:00 Test Item Value Reference Range Interpretation Comments PROTIME (BEAKER) (test code = 17.1 seconds 11.9-14.2 H 759) INR (BEAKER) (test code = 370) 1.4 <=5.9 Effective 12/11/2018: PT Reference Range ChangeNew: 11.9-14.2 Previous: 11.7- 14.7RECOMMENDED COUMADIN/WARFARIN INR THERAPY RANGESSTANDARD DOSE: 2.0-3.0 Includes: PROPHYLAXIS for venous thrombosis, systemic embolization; TREATMENT for venous thrombosis and/or pulmonary embolus.HIGH RISK: Target INR is2.5-3.5 for patients wiht mechanical heart valves.CBC (HEMOGRAM ONLY)2019-11-26 03:52:00 Test Item Value Reference Range Interpretation Comments WHITE BLOOD CELL COUNT (BEAKER) 2.9 K/ L 3.5-10.5 L (test code = 775) RED BLOOD CELL COUNT (BEAKER) 3.64 M/ L 4.63-6.08 L (test code = 761) HEMOGLOBIN (BEAKER) (test code = 10.7 GM/DL 13.7-17.5 L 410) HEMATOCRIT (BEAKER) (test code = 32.0 % 40.1-51.0 L 411) MEAN CORPUSCULAR VOLUME (BEAKER) 87.9 fL 79.0-92.2 (test code = 753) MEAN CORPUSCULAR HEMOGLOBIN 29.4 pg 25.7-32.2 (BEAKER) (test code = 751) MEAN CORPUSCULAR HEMOGLOBIN CONC 33.4 GM/DL 32.3-36.5 (BEAKER) (test code = 752) RED CELL DISTRIBUTION WIDTH 14.8 % 11.6-14.4 H (BEAKER) (test code = 412) PLATELET COUNT (BEAKER) (test 114 K/CU MM 150-450 L code = 756) MEAN PLATELET VOLUME (BEAKER) 9.3 fL 9.4-12.4 L (test code = 754) NUCLEATED RED BLOOD CELLS 0 /100 WBC 0-0 (BEAKER) (test code = 413) [id number] 18:17:00 Test Item Value Reference Range Interpretation Comments Cortisol, Total (test code = 14.8 ug/dL 3.7-19.4 2755) RADHA (test code = RADHA) [employer] Spray Unit Adjuster ID - BS Lab Interpretation (test Normal code = 76138-1) [facility] 18:17:00 Test Item Value Reference Range Interpretation Comments CORTISOL, TOTAL (BEAKER) (test 14.8 ug/dL 3.7-19.4 code = 2755) [employer] Spray Unit Adjuster ID - BSU/S, RENAL, [id number] 14:35:00Reason for exam:->abd pain, hyperkalemiaShould this be performed at the bedside?->YesFINAL REPORT Technique: Grayscale and color doppler renal ultrasound was performed on 11/25/2019 Clinical History: Abd pain. Comparison Study: None. Findings: The right kidney measures 11.0 x 5.2 x 4.3 cm and left kidney measures 11.5 x 6.4 x 5.5 cm. There is no evidence of hydronephrosis, nephrolithiasis or renal mass on either side. The echogenicity is normal bilaterally. The bladder is normal in appearance. Incidentally noted is a hepatic steatosis. Impression: 1. Normal-appearing kidneys. 2. Hepatic steatosis. Signed: Nancy Concepcioneport Verified Date/Time: 11/25/2019 14:35:00 Reading Location: [address] Radiology Reading Room US renal [id number] 14:35:00Interface, External Ris In - 11/25/2019 2:37 PM CDTFINAL REPORT Technique: Grayscale and color doppler renal ultrasound was performed on 11/25/2019 Clinical History: Abd pain. Comparison Study: None. Findings: The right kidney measures 11.0 x 5.2 x 4.3 cm and left kidney measures 11.5 x 6.4 x 5.5 cm. There is no evidence of hydronephrosis, nephrolithiasis or renal mass on either side. The echogenicity is normal bilaterally. The bladder is normal in appearance. Incidentally noted is a hepatic steatosis. Impression: 1. Normal-appearing kidneys. 2. Hepatic steatosis. Signed: Nancy Concepcion MDReport Verified Date/Time: 11/25/2019 14:35:00 Reading Location: [address] Radiology [facility] risk)2019-11-25 14:11:00 Test Item Value Reference Interpretation Comments Range Factor V Leiden SEE BELOW RESULT: FACT OR V Mutation (test code LEIDEN ( R506Q) VARIANT = [id number]) NOT DETECTED Interpretation SEE BELOW INTERPRETATIO N: This (test code = individual is n egative [id number]) (normal) for e Factor V Leiden (R506Q) variant in the Factor V gene. Increas ed risk of thrombophili a can becaused by a v ariety of genetic and non-genetic fac tors not screened fo r bythis assay. Laboratory test ing supervised and results monitored by Martina Ma MD, PhD, FAC, [facility]. MUTATI ON ANALYSIS:The Fa ctor V Leiden (R506Q) mutation [NM 00 0130.2: c.1601G>A (p.R5 34Q)] inthe Factor V gene is one of the most common causes of inheritedthromb ophilia . This mutation causes resistance to degradation of activatedFactor V protein by acti vated protein C (APC) . The Factor V Leiden (R506Q)mutation is detected by amplification o f the selected region of Factor V geneby polymerase david n reaction (PCR) and fluorescent pro be hybridization t o thetargeted reg ion, followed by khalif ting curve analysis with a real time PCRsy stem. Although rare, false positive or fal se negative result s may occur.All resul ts should be inter preted in context of c linical findings, relevanthistory , and other laborator y data. This test was developed and i ts analytical perf ormance characteristics havebeen determ ined by [facility] .It has not been cleare d or approved by FDA . This assay has been validatedpursua nt to the CLIA regula tions and is used for clinical purpos es. Health care pro viders, please contact your local [facility]' geneticcounselo r or call [phone] ([phone]) for assistance withinterpretat ion of these results. RADHA (test code = Performing Lab RADHA) [facility] [employer] [address] [address] Katrin Skelton MD, PhD, DAJUANMammoth HospitalBeta-2-Glycoprotein I [id number] 12:46:00 Test Item Value Reference Range Interpretation Comments Beta-2 Glycoprotein I <9 < OR = 20 SGU Ab, IgG (test code = 06740-7) RADHA (test code = RADHA) Performing Lab [facility] [employer] [address] [address] Katrin Skelton MD, PhD, DAJUANMammoth HospitalBeta-2-Glycoprotein I [id number] 12:46:00 Test Item Value Reference Range Interpretation Comments Beta-2 Glycoprotein I <9 < OR = 20 SMU Ab, IgM (test code = 14000-4) RADHA (test code = RADHA) Performing Lab [facility] [employer] [address] [address] Katrin Skelton MD, PhD, DAJUANMammoth HospitalBeta-2-Glycoprotein I [id number] 12:46:00 Test Item Value Reference Interpretation Comments Range Beta-2 <9 < OR = 20 The antiphospho lipid antibody Glycoprotein I BE syndrome (APS ) velma Ab, IgA (test clinical-patho logic code = 49371-1) correlation that includesa clinical event (e.g. thrombosis, pre gnancyloss, thrombocytopeni a) and persistent positiveantipho spholipid antibodies (IgM or IgG TERRY>40 MPL/GPL,IgM or IgG anti-b2GPI antibodies ora lupus anticoagulant). International consensusguidel vamshi for APS suggest waiting at least 12weeks before retesting to confirm antibod ypersistence. [facility] immunologicalcl assification criteria for sy stemic lupuserythemato ally (SLE) include testing for isotypeIgA, whi ch has yet to be incorporated into APScriteria. Lo w level antiphospholipi d antibodiesmay s ometimes be detected in the setting ofinfection, dr ug therapy or aging. RADHA (test code Performing Lab = RADHA) [facility] [employer] [facility] [address] [place] [address] Katrin Skelton MD, PhD, DAJUAN [facility]isProthrombin Gene [id number] 11:39:00 Test Item Value Reference Interpretation Comments Range PROTHROMBIN GENE SEE BELOW RESULT: G20 210A ANALYSIS (test code variant not detected = [id number]) Interpretation SEE BELOW INTERPRETATIO N: This (test code = individual is n egative 3081259) (normal) for th e Q25844Z variant in the Prothrombin/Fac tor II gene. Increased risk of thrombophili a can becaused by a v ariety of genetic and non-genetic fac tors not screened fo r bythis assay. Laboratory test ing supervised and results monitored by Felicia Cai, Ph.D.,D ABMGG, [facility]. The G20 210A mutation [AF478 696.1: g.04696B>A (c.* 97G>A)] in theProthrombin/ Factor II gene is the second most common inh erited risk factorfor thrombosis occu rring in approximatel y 2% of Caucasians. Pre sence of themutation is associated with an elevation of prothrombin lev els to about 30%above normal in heterozygote s and to 70% above no rmal in homozygotes. Prothrombin (G2 0210A) mutations are d etected by amplificatio n of theirselected g jose regions by poly merase chain reaction (PCR) and fluorescent probe hybridization t o the targeted region , followed by khalif garcia curveanalysis w ith a real time PCR s ystem. Although rare, false positive or falsenegative r esults may occur. All results should be inter preted in context ofcl inical findings, relev ant history, and ot her laboratory data . Health care pro viders, please contact your local [employer]' geneticcounselo r or call [phone] ([phone]) for assistance withinterpretat ion of these results. This test was devtonyo ped and its analytical performance characteristics havebeen determ ined by [facility] .It has not been cleare d or approved by FDA . This assay has been validatedpursua nt to the CLIA regula tions and is used for clinical purpos es. RADHA (test code = Performing Lab RADHA) [facility] [employer] [facility] [address] [place] [address] I Nafisa HEATH, PhD, DAJUAN [facility] METABOLIC [id number] 05:25:00 Test Item Value Reference Range Interpretation Comments SODIUM (BEAKER) 140 meq/L 136-145 (test code = 381) POTASSIUM (BEAKER) 3.9 meq/L 3.5-5.1 (test code = 379) CHLORIDE (BEAKER) 110 meq/L 98-107 H (test code = 382) CO2 (BEAKER) (test 24 meq/L 22-29 code = 355) BLOOD UREA NITROGEN 7 mg/dL 7-21 (BEAKER) (test code = 354) CREATININE (BEAKER) 0.72 mg/dL 0.57-1.25 (test code = 358) GLUCOSE RANDOM 104 mg/dL 70-105 (BEAKER) (test code = 652) CALCIUM (BEAKER) 8.8 mg/dL 8.4-10.2 (test code = 697) EGFR (BEAKER) (test 126 mL/min/1.73 ESTIM ATED GFR IS code = 1092) sq m NOT ACCURATE CREATININE CLEARANCE IN PREDICTING GLOMERULAR FILTRATION RATE . ESTIMATED GFR I S NOT APPLICABLE FOR DIALYSIS PATIEN TS. [employer] Adjuster ID - PIAYA LPROTHROMBIN [id number] 04:14:00 Test Item Value Reference Range Interpretation Comments PROTIME (BEAKER) (test code = 14.9 seconds 11.9-14.2 H 759) INR (BEAKER) (test code = 370) 1.2 <=5.9 Effective 12/11/2018: PT Reference Range ChangeNew: 11.9-14.2 Previous: 11.7- 14.7RECOMMENDED COUMADIN/WARFARIN INR THERAPY RANGESSTANDARD DOSE: 2.0-3.0 Includes: PROPHYLAXIS for venous thrombosis, systemic embolization; TREATMENT for venous thrombosis and/or pulmonary embolus.HIGH RISK: Target INR is2.5-3.5 for patients wiht mechanical heart valves.CBC (HEMOGRAM ONLY)2019-11-25 04:06:00 Test Item Value Reference Range Interpretation Comments WHITE BLOOD CELL COUNT (BEAKER) 3.9 K/ L 3.5-10.5 (test code = 775) RED BLOOD CELL COUNT (BEAKER) 3.76 M/ L 4.63-6.08 L (test code = 761) HEMOGLOBIN (BEAKER) (test code = 11.6 GM/DL 13.7-17.5 L 410) HEMATOCRIT (BEAKER) (test code = 33.9 % 40.1-51.0 L 411) MEAN CORPUSCULAR VOLUME (BEAKER) 90.2 fL 79.0-92.2 (test code = 753) MEAN CORPUSCULAR HEMOGLOBIN 30.9 pg 25.7-32.2 (BEAKER) (test code = 751) MEAN CORPUSCULAR HEMOGLOBIN CONC 34.2 GM/DL 32.3-36.5 (BEAKER) (test code = 752) RED CELL DISTRIBUTION WIDTH 14.9 % 11.6-14.4 H (BEAKER) (test code = 412) PLATELET COUNT (BEAKER) (test 118 K/CU MM 150-450 L code = 756) MEAN PLATELET VOLUME (BEAKER) 9.6 fL 9.4-12.4 (test code = 754) NUCLEATED RED BLOOD CELLS 0 /100 WBC 0-0 (BEAKER) (test code = 413) JAK2 MUTATION (V617F) [id number] 08:10:00 Test Item Value Reference Interpretation Comments Range CLINICAL NOT GIVEN INDICATION ([facility]) (test code = 8593146) SPECIMEN SOURCE: NOT GIVEN (test code = 1736199) Block/Specimen ID NOT GIVEN (test code = 9004467) JAK2 V617F NOT DETECTED NOT DETECTED Mutation ([facility]) (test code = 7423837) GENE (test code = DNR 1033081) AMINO ACID (test DNR code = 2060495) MUTATIONS/POLYMORP DNR HISMS (test code = 7888530) Mutation Analysis DNR (test code = 4697737) Exons 10,11,13-16 DNR (test code = 2851415) NUCLEOTIDE CHANGE DNR (test code = 6631631) References: (test DNR code = 0443494) INTERPRETATION SEE BELOW A JAK2 V617 F mutation ([facility]) (test code is not de tected. This = 9204172) data was review ed and interpreted by Ortiz Malave, PhD. HCLD(Duglas BB) ASSAY DETAILS SEE BELOW This PCR-based advanced (test code = sequencing assa y 9564440) interrogates DN A from leukocytes fort he presence of mut ations in codon 617 of JA K2. The sensitivity of mutationdetecti on is 5%. Alterations out side of the tested area s of this gene willnot be detected. Synonymous or k nown non-synonymous polymorphic beck nges(SNPs) are not reporte d. JAK2 V617F mutation is associated withmyeloprolif erative neoplasms (MPNs ), including polyc ythemia vera (PV),essen tial thrombocythemia (ET) and primary myelofi brosis (PMF), and a sm allsubset of other myeloi d neoplasms. Incr easing allele burden o f JAK2 V617F inMPNs holland s been shown in a numb er of studies to be a ssociated with increaseds ymptoms including pruri tis, splenomegaly, a nd leukocytosis. R esults of thisassay shoul d be correlated with morphology and other laboratory test ing forfinal diagno sis and classification. If this test is negativ e, additionaltesti ng that may be useful f or workup of MPNs, depend ing on presentinghemat ologic features, inclu farhan BCR-ABL1 rearra ngement (test code 9106 5 [id number]) or mu tational analysis of ELVIRA R (ET/PMF, 45548), JAK2 ex on 12 (PV,04919), MPL (ET/PMF, 44924) or CSF3R (chronic neutrophilic le ukemia, 34337).Residual material from this sampl e may be used except for BCR-ABL1 testing;call la b to add. DNA was aligned to GRCh37(hg19) fo r analysis and transcript [id number] was used as referen ce for JAK2 sequence. For additional info rmation, please refer [email or web address] (This link is b néstor provided for informational/e ducational purposes only.) This test was developed a nd its analytical perf ormance characteristics havebeen determined by [facility].It h as not been cleared or approved by FDA. This as say has been validatedp ursuant to the CLIA regula tions and is used for cli nical purposes. RADHA (test code = Performing Lab RADHA) [employer] [facility] [address] [place] [address] Katrin Skelton MD, PhD, DAJUAN [facility] METABOLIC [id number] 05:01:00 Test Item Value Reference Range Interpretation Comments SODIUM (BEAKER) 137 meq/L 136-145 (test code = 381) POTASSIUM (BEAKER) 5.4 meq/L 3.5-5.1 H (test code = 379) CHLORIDE (BEAKER) 108 meq/L 98-107 H (test code = 382) CO2 (BEAKER) (test 24 meq/L 22-29 code = 355) BLOOD UREA NITROGEN 9 mg/dL 7-21 (BEAKER) (test code = 354) CREATININE (BEAKER) 0.62 mg/dL 0.57-1.25 (test code = 358) GLUCOSE RANDOM 91 mg/dL 70-105 (BEAKER) (test code = 652) CALCIUM (BEAKER) 9.3 mg/dL 8.4-10.2 (test code = 697) EGFR (BEAKER) (test 149 mL/min/1.73 ESTIM ATED GFR IS code = 1092) sq m NOT ACCURATE CREATININE CLEARANCE IN PREDICTING GLOMERULAR FILTRATION RATE . ESTIMATED GFR I S NOT APPLICABLE FOR DIALYSIS PATIEN TS. [employer] Unit Adjuster ID - ANA MBeta-2 glycoprotein [id number] 05:00:00 Test Item Value Reference Range Interpretation Comments B2 Glcoprotein Ab Refer to individual Profile (test code = B2-Glycoprotein IgG, 2552) IgM and IgA results. [facility] W/PLT COUNT & AUTO [id number] 03:56:00 Test Item Value Reference Range Interpretation Comments WHITE BLOOD CELL COUNT (BEAKER) 7.1 K/ L 3.5-10.5 (test code = 775) RED BLOOD CELL COUNT (BEAKER) 4.72 M/ L 4.63-6.08 (test code = 761) HEMOGLOBIN (BEAKER) (test code = 13.6 GM/DL 13.7-17.5 L 410) HEMATOCRIT (BEAKER) (test code = 42.2 % 40.1-51.0 411) MEAN CORPUSCULAR VOLUME (BEAKER) 89.4 fL 79.0-92.2 (test code = 753) MEAN CORPUSCULAR HEMOGLOBIN 28.8 pg 25.7-32.2 (BEAKER) (test code = 751) MEAN CORPUSCULAR HEMOGLOBIN CONC 32.2 GM/DL 32.3-36.5 L (BEAKER) (test code = 752) RED CELL DISTRIBUTION WIDTH 15.2 % 11.6-14.4 H (BEAKER) (test code = 412) PLATELET COUNT (BEAKER) (test 179 K/CU MM 150-450 code = 756) MEAN PLATELET VOLUME (BEAKER) 8.8 fL 9.4-12.4 L (test code = 754) NUCLEATED RED BLOOD CELLS 0 /100 WBC 0-0 (BEAKER) (test code = 413) NEUTROPHILS RELATIVE PERCENT 50 % (BEAKER) (test code = 429) LYMPHOCYTES RELATIVE PERCENT 37 % (BEAKER) (test code = 430) MONOCYTES RELATIVE PERCENT 10 % (BEAKER) (test code = 431) EOSINOPHILS RELATIVE PERCENT 2 % (BEAKER) (test code = 432) BASOPHILS RELATIVE PERCENT 1 % (BEAKER) (test code = 437) NEUTROPHILS ABSOLUTE COUNT 3.53 K/ L 1.78-5.38 (BEAKER) (test code = 670) LYMPHOCYTES ABSOLUTE COUNT 2.59 K/ L 1.32-3.57 (BEAKER) (test code = 414) MONOCYTES ABSOLUTE COUNT (BEAKER) 0.74 K/ L 0.30-0.82 (test code = 415) EOSINOPHILS ABSOLUTE COUNT 0.12 K/ L 0.04-0.54 (BEAKER) (test code = 416) BASOPHILS ABSOLUTE COUNT (BEAKER) 0.05 K/ L 0.01-0.08 (test code = 417) IMMATURE GRANULOCYTES-RELATIVE 1 % 0-1 PERCENT (BEAKER) (test code = 2801) BASIC METABOLIC [id number] 15:14:00 Test Item Value Reference Range Interpretation Comments SODIUM (BEAKER) 138 meq/L 136-145 (test code = 381) POTASSIUM (BEAKER) 6.1 meq/L 3.5-5.1 HH (test code = 379) CHLORIDE (BEAKER) 106 meq/L 98-107 (test code = 382) CO2 (BEAKER) (test 26 meq/L 22-29 code = 355) BLOOD UREA NITROGEN 9 mg/dL 7-21 (BEAKER) (test code = 354) CREATININE (BEAKER) 0.82 mg/dL 0.57-1.25 (test code = 358) GLUCOSE RANDOM 82 mg/dL 70-105 (BEAKER) (test code = 652) CALCIUM (BEAKER) 10.1 mg/dL 8.4-10.2 (test code = 697) EGFR (BEAKER) (test 108 mL/min/1.73 ESTIM ATED GFR IS code = 1092) sq m NOT ACCURATE CREATININE CLEARANCE IN PREDICTING GLOMERULAR FILTRATION RATE . ESTIMATED GFR I S NOT APPLICABLE FOR DIALYSIS PATIEN TS. [employer] Unit Adjuster ID - NTPBASIC METABOLIC [id number] 06:54:00 Test Item Value Reference Range Interpretation Comments SODIUM (BEAKER) 138 meq/L 136-145 (test code = 381) POTASSIUM (BEAKER) 6.3 meq/L 3.5-5.1 HH Specimen slightly (test code = 379) hemolyzed CHLORIDE (BEAKER) 110 meq/L 98-107 H (test code = 382) CO2 (BEAKER) (test 26 meq/L 22-29 code = 355) BLOOD UREA NITROGEN 7 mg/dL 7-21 (BEAKER) (test code = 354) CREATININE (BEAKER) 0.71 mg/dL 0.57-1.25 Specimen slightly (test code = 358) hemolyzed GLUCOSE RANDOM 78 mg/dL 70-105 (BEAKER) (test code = 652) CALCIUM (BEAKER) 9.3 mg/dL 8.4-10.2 (test code = 697) EGFR (BEAKER) (test 128 mL/min/1.73 ESTIM ATED GFR IS code = 1092) sq m NOT ACCURATE CREATININE CLEARANCE IN PREDICTING GLOMERULAR FILTRATION RATE . ESTIMATED GFR I S NOT APPLICABLE FOR DIALYSIS PATIEN TS. [employer] Spr[employer] Unit Adjuster ID - ANA MC (HEMOGRAM ONLY)2019-11-23 06:29:00 Test Item Value Reference Range Interpretation Comments WHITE BLOOD CELL COUNT (BEAKER) 6.2 K/ L 3.5-10.5 (test code = 775) RED BLOOD CELL COUNT (BEAKER) 4.23 M/ L 4.63-6.08 L (test code = 761) HEMOGLOBIN (BEAKER) (test code = 12.8 GM/DL 13.7-17.5 L 410) HEMATOCRIT (BEAKER) (test code = 38.9 % 40.1-51.0 L 411) MEAN CORPUSCULAR VOLUME (BEAKER) 92.0 fL 79.0-92.2 (test code = 753) MEAN CORPUSCULAR HEMOGLOBIN 30.3 pg 25.7-32.2 (BEAKER) (test code = 751) MEAN CORPUSCULAR HEMOGLOBIN CONC 32.9 GM/DL 32.3-36.5 (BEAKER) (test code = 752) RED CELL DISTRIBUTION WIDTH 15.4 % 11.6-14.4 H (BEAKER) (test code = 412) PLATELET COUNT (BEAKER) (test 165 K/CU MM 150-450 code = 756) MEAN PLATELET VOLUME (BEAKER) 9.2 fL 9.4-12.4 L (test code = 754) NUCLEATED RED BLOOD CELLS 0 /100 WBC 0-0 (BEAKER) (test code = 413) BASIC METABOLIC [id number] 17:49:00 Test Item Value Reference Range Interpretation Comments SODIUM (BEAKER) 138 meq/L 136-145 (test code = 381) POTASSIUM (BEAKER) 6.4 meq/L 3.5-5.1 HH Specimen slightly (test code = 379) hemolyzed CHLORIDE (BEAKER) 110 meq/L 98-107 H (test code = 382) CO2 (BEAKER) (test 21 meq/L 22-29 L code = 355) BLOOD UREA NITROGEN 6 mg/dL 7-21 L (BEAKER) (test code = 354) CREATININE (BEAKER) 0.71 mg/dL 0.57-1.25 Specimen slightly (test code = 358) hemolyzed GLUCOSE RANDOM 96 mg/dL 70-105 (BEAKER) (test code = 652) CALCIUM (BEAKER) 9.6 mg/dL 8.4-10.2 (test code = 697) EGFR (BEAKER) (test 128 mL/min/1.73 ESTIM ATED GFR IS code = 1092) sq m NOT ACCURATE CREATININE CLEARANCE IN PREDICTING GLOMERULAR FILTRATION RATE . ESTIMATED GFR I S NOT APPLICABLE FOR DIALYSIS PATIEN TS. [employer] Spr[employer] Unit Adjuster ID - DBCOMPREHENSIVE METABOLIC [id number] 08:50:00 Test Item Value Reference Range Interpretation Comments TOTAL PROTEIN 7.5 gm/dL 6.0-8.3 (BEAKER) (test code = 770) ALBUMIN (BEAKER) 4.5 g/dL 3.5-5.0 (test code = 1145) ALKALINE PHOSPHATASE 83 U/L 40-150 (BEAKER) (test code = 346) BILIRUBIN TOTAL 0.5 mg/dL 0.2-1.2 (BEAKER) (test code = 377) SODIUM (BEAKER) (test 137 meq/L 136-145 code = 381) POTASSIUM (BEAKER) 5.2 meq/L 3.5-5.1 H (test code = 379) CHLORIDE (BEAKER) 109 meq/L 98-107 H (test code = 382) CO2 (BEAKER) (test 23 meq/L 22-29 code = 355) BLOOD UREA NITROGEN 5 mg/dL 7-21 L (BEAKER) (test code = 354) CREATININE (BEAKER) 0.72 mg/dL 0.57-1.25 (test code = 358) GLUCOSE RANDOM 88 mg/dL 70-105 (BEAKER) (test code = 652) CALCIUM (BEAKER) 9.5 mg/dL 8.4-10.2 (test code = 697) AST (SGOT) (BEAKER) 31 U/L 5-34 (test code = 353) ALT (SGPT) (BEAKER) 40 U/L 6-55 (test code = 347) EGFR (BEAKER) (test 126 ESTIMATE D GFR IS code = 1092) mL/min/1.73 sq NOT ACCURA TE m CREATININE CLEARANCE IN PREDICTING GLOMERULAR FILTRATION RATE . ESTIMATED GFR I S NOT APPLICABLE FOR DIALYSIS PATIEN TS. [employer] Spr[employer] Unit Adjuster ID - MATI CCBC W/PLT COUNT & AUTO [id number] 05:56:00 Test Item Value Reference Range Interpretation Comments WHITE BLOOD CELL COUNT (BEAKER) 6.3 K/ L 3.5-10.5 (test code = 775) RED BLOOD CELL COUNT (BEAKER) 3.95 M/ L 4.63-6.08 L (test code = 761) HEMOGLOBIN (BEAKER) (test code = 12.2 GM/DL 13.7-17.5 L 410) HEMATOCRIT (BEAKER) (test code = 36.4 % 40.1-51.0 L 411) MEAN CORPUSCULAR VOLUME (BEAKER) 92.2 fL 79.0-92.2 (test code = 753) MEAN CORPUSCULAR HEMOGLOBIN 30.9 pg 25.7-32.2 (BEAKER) (test code = 751) MEAN CORPUSCULAR HEMOGLOBIN CONC 33.5 GM/DL 32.3-36.5 (BEAKER) (test code = 752) RED CELL DISTRIBUTION WIDTH 15.5 % 11.6-14.4 H (BEAKER) (test code = 412) PLATELET COUNT (BEAKER) (test 158 K/CU MM 150-450 code = 756) MEAN PLATELET VOLUME (BEAKER) 9.6 fL 9.4-12.4 (test code = 754) NUCLEATED RED BLOOD CELLS 0 /100 WBC 0-0 (BEAKER) (test code = 413) NEUTROPHILS RELATIVE PERCENT 57 % (BEAKER) (test code = 429) LYMPHOCYTES RELATIVE PERCENT 32 % (BEAKER) (test code = 430) MONOCYTES RELATIVE PERCENT 8 % (BEAKER) (test code = 431) EOSINOPHILS RELATIVE PERCENT 1 % (BEAKER) (test code = 432) BASOPHILS RELATIVE PERCENT 1 % (BEAKER) (test code = 437) NEUTROPHILS ABSOLUTE COUNT 3.57 K/ L 1.78-5.38 (BEAKER) (test code = 670) LYMPHOCYTES ABSOLUTE COUNT 2.03 K/ L 1.32-3.57 (BEAKER) (test code = 414) MONOCYTES ABSOLUTE COUNT (BEAKER) 0.49 K/ L 0.30-0.82 (test code = 415) EOSINOPHILS ABSOLUTE COUNT 0.09 K/ L 0.04-0.54 (BEAKER) (test code = 416) BASOPHILS ABSOLUTE COUNT (BEAKER) 0.04 K/ L 0.01-0.08 (test code = 417) IMMATURE GRANULOCYTES-RELATIVE 1 % 0-1 PERCENT (BEAKER) (test code = 2801) Cardiolipin Antibodies, IgG and [id number] 06:44:00 Test Item Value Reference Range Interpretation Comments Anticardiolipin IgG <1.6 <20.0 GPL (test code = 3181-5) Anticardiolipin IgM 4.1 <20.0 MPL (test code = 3182-3) RADHA (test code = RADHA) Anticardiolipin IgG Result Interpretation: <20.0 GPL Normal>/= 20.0 GPL Positive Anticardiolipin IgM Result Interpretation: <20.0 MPL Normal>/= 20.0 MPL Positive Lab Interpretation Normal (test code = 25434-1) [facility]TIBOD[facility], IGG AND [id number] 06:44:00 Test Item Value Reference Range Interpretation Comments ANTICARDIOLIPIN IGG ANTIBODY (BEAKER) < GPL <20.0 (test code = 712) ANTICARDIOLIPIN IGM ANTIBODY (BEAKER) 4.1 MPL <20.0 (test code = 713) Anticardiolipin IgG Result Interpretation: <20.0 GPL Normal>/= 20.0 GPL PositiveAnticardiolipin IgM Result Interpretation: <20.0 MPL Normal>/= 20.0 MPL PositiveBASIC METABOLIC [id number] 04:12:00 Test Item Value Reference Range Interpretation Comments SODIUM (BEAKER) 141 meq/L 136-145 (test code = 381) POTASSIUM (BEAKER) 4.6 meq/L 3.5-5.1 (test code = 379) CHLORIDE (BEAKER) 112 meq/L 98-107 H (test code = 382) CO2 (BEAKER) (test 24 meq/L 22-29 code = 355) BLOOD UREA NITROGEN 4 mg/dL 7-21 L (BEAKER) (test code = 354) CREATININE (BEAKER) 0.51 mg/dL 0.57-1.25 L (test code = 358) GLUCOSE RANDOM 89 mg/dL 70-105 (BEAKER) (test code = 652) CALCIUM (BEAKER) 9.3 mg/dL 8.4-10.2 (test code = 697) EGFR (BEAKER) (test 187 mL/min/1.73 ESTIM ATED GFR IS code = 1092) sq m NOT ACCURATE CREATININE CLEARANCE IN PREDICTING GLOMERULAR FILTRATION RATE . ESTIMATED GFR I S NOT APPLICABLE FOR DIALYSIS PATIEN TS. [employer] Unit Adjuster ID - JEFFRY WCBC (HEMOGRAM ONLY)2019-11-21 03:52:00 Test Item Value Reference Range Interpretation Comments WHITE BLOOD CELL COUNT (BEAKER) 6.1 K/ L 3.5-10.5 (test code = 775) RED BLOOD CELL COUNT (BEAKER) 4.16 M/ L 4.63-6.08 L (test code = 761) HEMOGLOBIN (BEAKER) (test code = 12.7 GM/DL 13.7-17.5 L 410) HEMATOCRIT (BEAKER) (test code = 37.4 % 40.1-51.0 L 411) MEAN CORPUSCULAR VOLUME (BEAKER) 89.9 fL 79.0-92.2 (test code = 753) MEAN CORPUSCULAR HEMOGLOBIN 30.5 pg 25.7-32.2 (BEAKER) (test code = 751) MEAN CORPUSCULAR HEMOGLOBIN CONC 34.0 GM/DL 32.3-36.5 (BEAKER) (test code = 752) RED CELL DISTRIBUTION WIDTH 15.9 % 11.6-14.4 H (BEAKER) (test code = 412) PLATELET COUNT (BEAKER) (test 158 K/CU MM 150-450 code = 756) MEAN PLATELET VOLUME (BEAKER) 9.3 fL 9.4-12.4 L (test code = 754) NUCLEATED RED BLOOD CELLS 0 /100 WBC 0-0 (BEAKER) (test code = 413) BASIC METABOLIC [id number] 04:02:00 Test Item Value Reference Range Interpretation Comments SODIUM (BEAKER) 142 meq/L 136-145 (test code = 381) POTASSIUM (BEAKER) 4.1 meq/L 3.5-5.1 (test code = 379) CHLORIDE (BEAKER) 110 meq/L 98-107 H (test code = 382) CO2 (BEAKER) (test 27 meq/L 22-29 code = 355) BLOOD UREA NITROGEN 6 mg/dL 7-21 L (BEAKER) (test code = 354) CREATININE (BEAKER) 0.67 mg/dL 0.57-1.25 (test code = 358) GLUCOSE RANDOM 114 mg/dL 70-105 H (BEAKER) (test code = 652) CALCIUM (BEAKER) 8.6 mg/dL 8.4-10.2 (test code = 697) EGFR (BEAKER) (test 137 mL/min/1.73 ESTIM ATED GFR IS code = 1092) sq m NOT ACCURATE CREATININE CLEARANCE IN PREDICTING GLOMERULAR FILTRATION RATE . ESTIMATED GFR I S NOT APPLICABLE FOR DIALYSIS PATIEN TS. [employer] Unit Adjuster ID - JEFFRY WC (HEMOGRAM ONLY)2019-11-20 03:49:00 Test Item Value Reference Range Interpretation Comments WHITE BLOOD CELL COUNT (BEAKER) 5.2 K/ L 3.5-10.5 (test code = 775) RED BLOOD CELL COUNT (BEAKER) 3.79 M/ L 4.63-6.08 L (test code = 761) HEMOGLOBIN (BEAKER) (test code = 11.6 GM/DL 13.7-17.5 L 410) HEMATOCRIT (BEAKER) (test code = 33.2 % 40.1-51.0 L 411) MEAN CORPUSCULAR VOLUME (BEAKER) 87.6 fL 79.0-92.2 (test code = 753) MEAN CORPUSCULAR HEMOGLOBIN 30.6 pg 25.7-32.2 (BEAKER) (test code = 751) MEAN CORPUSCULAR HEMOGLOBIN CONC 34.9 GM/DL 32.3-36.5 (BEAKER) (test code = 752) RED CELL DISTRIBUTION WIDTH 15.3 % 11.6-14.4 H (BEAKER) (test code = 412) PLATELET COUNT (BEAKER) (test 139 K/CU MM 150-450 L code = 756) MEAN PLATELET VOLUME (BEAKER) 8.6 fL 9.4-12.4 L (test code = 754) NUCLEATED RED BLOOD CELLS 0 /100 WBC 0-0 (BEAKER) (test code = 413) BASIC METABOLIC [id number] 05:07:00 Test Item Value Reference Range Interpretation Comments SODIUM (BEAKER) 141 meq/L 136-145 (test code = 381) POTASSIUM (BEAKER) 4.2 meq/L 3.5-5.1 (test code = 379) CHLORIDE (BEAKER) 108 meq/L 98-107 H (test code = 382) CO2 (BEAKER) (test 29 meq/L 22-29 code = 355) BLOOD UREA NITROGEN 7 mg/dL 7-21 (BEAKER) (test code = 354) CREATININE (BEAKER) 0.69 mg/dL 0.57-1.25 (test code = 358) GLUCOSE RANDOM 101 mg/dL 70-105 (BEAKER) (test code = 652) CALCIUM (BEAKER) 8.9 mg/dL 8.4-10.2 (test code = 697) EGFR (BEAKER) (test 132 mL/min/1.73 ESTIM ATED GFR IS code = 1092) sq m NOT ACCURATE CREATININE CLEARANCE IN PREDICTING GLOMERULAR FILTRATION RATE . ESTIMATED GFR I S NOT APPLICABLE FOR DIALYSIS PATIEN TS. [employer] Unit Adjuster ID - ANA MCBC (HEMOGRAM ONLY)2019-11-19 04:42:00 Test Item Value Reference Range Interpretation Comments WHITE BLOOD CELL COUNT (BEAKER) 4.3 K/ L 3.5-10.5 (test code = 775) RED BLOOD CELL COUNT (BEAKER) 3.99 M/ L 4.63-6.08 L (test code = 761) HEMOGLOBIN (BEAKER) (test code = 12.2 GM/DL 13.7-17.5 L 410) HEMATOCRIT (BEAKER) (test code = 35.4 % 40.1-51.0 L 411) MEAN CORPUSCULAR VOLUME (BEAKER) 88.7 fL 79.0-92.2 (test code = 753) MEAN CORPUSCULAR HEMOGLOBIN 30.6 pg 25.7-32.2 (BEAKER) (test code = 751) MEAN CORPUSCULAR HEMOGLOBIN CONC 34.5 GM/DL 32.3-36.5 (BEAKER) (test code = 752) RED CELL DISTRIBUTION WIDTH 15.1 % 11.6-14.4 H (BEAKER) (test code = 412) PLATELET COUNT (BEAKER) (test 139 K/CU MM 150-450 L code = 756) MEAN PLATELET VOLUME (BEAKER) 9.2 fL 9.4-12.4 L (test code = 754) NUCLEATED RED BLOOD CELLS 0 /100 WBC 0-0 (BEAKER) (test code = 413) BASIC METABOLIC [id number] 15:31:00 Test Item Value Reference Range Interpretation Comments SODIUM (BEAKER) 140 meq/L 136-145 (test code = 381) POTASSIUM (BEAKER) 4.8 meq/L 3.5-5.1 Specimen moderately (test code = 379) hemolyzed CHLORIDE (BEAKER) 109 meq/L 98-107 H (test code = 382) CO2 (BEAKER) (test 25 meq/L 22-29 code = 355) BLOOD UREA NITROGEN 7 mg/dL 7-21 (BEAKER) (test code = 354) CREATININE (BEAKER) 0.70 mg/dL 0.57-1.25 Specimen moderately (test code = 358) hemolyzed GLUCOSE RANDOM 82 mg/dL 70-105 (BEAKER) (test code = 652) CALCIUM (BEAKER) 8.8 mg/dL 8.4-10.2 (test code = 697) EGFR (BEAKER) (test 130 mL/min/1.73 ESTIM ATED GFR IS code = 1092) sq m NOT ACCURATE CREATININE CLEARANCE IN PREDICTING GLOMERULAR FILTRATION RATE . ESTIMATED GFR I S NOT APPLICABLE FOR DIALYSIS PATIEN TS. [employer] Spr[employer] Unit Adjuster ID - BSCOMPREHENSIVE METABOLIC [id number] 04:13:00 Test Item Value Reference Range Interpretation Comments TOTAL PROTEIN 6.2 gm/dL 6.0-8.3 (BEAKER) (test code = 770) ALBUMIN (BEAKER) 3.8 g/dL 3.5-5.0 (test code = 1145) ALKALINE PHOSPHATASE 79 U/L 40-150 (BEAKER) (test code = 346) BILIRUBIN TOTAL 0.2 mg/dL 0.2-1.2 (BEAKER) (test code = 377) SODIUM (BEAKER) (test 141 meq/L 136-145 code = 381) POTASSIUM (BEAKER) 3.5 meq/L 3.5-5.1 (test code = 379) CHLORIDE (BEAKER) 109 meq/L 98-107 H (test code = 382) CO2 (BEAKER) (test 25 meq/L 22-29 code = 355) BLOOD UREA NITROGEN 11 mg/dL 7-21 (BEAKER) (test code = 354) CREATININE (BEAKER) 0.72 mg/dL 0.57-1.25 (test code = 358) GLUCOSE RANDOM 111 mg/dL 70-105 H (BEAKER) (test code = 652) CALCIUM (BEAKER) 8.5 mg/dL 8.4-10.2 (test code = 697) AST (SGOT) (BEAKER) 19 U/L 5-34 (test code = 353) ALT (SGPT) (BEAKER) 23 U/L 6-55 (test code = 347) EGFR (BEAKER) (test 126 ESTIMATE D GFR IS code = 1092) mL/min/1.73 sq NOT ACCURA TE m CREATININE CLEARANCE IN PREDICTING GLOMERULAR FILTRATION RATE . ESTIMATED GFR I S NOT APPLICABLE FOR DIALYSIS PATIEN TS. [employer] ID - PIAYA LLACTIC ACID, [id number] 04:07:00 Test Item Value Reference Range Interpretation Comments LACTATE BLOOD VENOUS (2) (BEAKER) 0.92 mmol/L 0.50-2.20 (test code = 2872) [employer] ID - PIAYA LCBC W/PLT COUNT & AUTO [id number] 03:41:00 Test Item Value Reference Range Interpretation Comments WHITE BLOOD CELL COUNT (BEAKER) 4.2 K/ L 3.5-10.5 (test code = 775) RED BLOOD CELL COUNT (BEAKER) 3.79 M/ L 4.63-6.08 L (test code = 761) HEMOGLOBIN (BEAKER) (test code = 11.5 GM/DL 13.7-17.5 L 410) HEMATOCRIT (BEAKER) (test code = 32.6 % 40.1-51.0 L 411) MEAN CORPUSCULAR VOLUME (BEAKER) 86.0 fL 79.0-92.2 (test code = 753) MEAN CORPUSCULAR HEMOGLOBIN 30.3 pg 25.7-32.2 (BEAKER) (test code = 751) MEAN CORPUSCULAR HEMOGLOBIN CONC 35.3 GM/DL 32.3-36.5 (BEAKER) (test code = 752) RED CELL DISTRIBUTION WIDTH 14.7 % 11.6-14.4 H (BEAKER) (test code = 412) PLATELET COUNT (BEAKER) (test 160 K/CU MM 150-450 code = 756) MEAN PLATELET VOLUME (BEAKER) 9.1 fL 9.4-12.4 L (test code = 754) NUCLEATED RED BLOOD CELLS 0 /100 WBC 0-0 (BEAKER) (test code = 413) NEUTROPHILS RELATIVE PERCENT 52 % (BEAKER) (test code = 429) LYMPHOCYTES RELATIVE PERCENT 40 % (BEAKER) (test code = 430) MONOCYTES RELATIVE PERCENT 6 % (BEAKER) (test code = 431) EOSINOPHILS RELATIVE PERCENT 1 % (BEAKER) (test code = 432) BASOPHILS RELATIVE PERCENT 1 % (BEAKER) (test code = 437) NEUTROPHILS ABSOLUTE COUNT 2.14 K/ L 1.78-5.38 (BEAKER) (test code = 670) LYMPHOCYTES ABSOLUTE COUNT 1.66 K/ L 1.32-3.57 (BEAKER) (test code = 414) MONOCYTES ABSOLUTE COUNT (BEAKER) 0.25 K/ L 0.30-0.82 L (test code = 415) EOSINOPHILS ABSOLUTE COUNT 0.06 K/ L 0.04-0.54 (BEAKER) (test code = 416) BASOPHILS ABSOLUTE COUNT (BEAKER) 0.03 K/ L 0.01-0.08 (test code = 417) IMMATURE GRANULOCYTES-RELATIVE 1 % 0-1 PERCENT (BEAKER) (test code = 2801) [id number] 22:38:00 Test Item Value Reference Range Interpretation Comments Procalcitonin (test code = <0.05 <0.05 ng/mL 07809-3) RADHA (test code = RADHA) SEPSIS RISK (ng/mL)Low: 0.05-0.50Intermedi ate: 0.51-2.00High: >=2.01 Lab Interpretation (test Normal code = 33245-0) [id number] 22:38[facility]00 Test Item Value Reference Range Interpretation Comments PROCALCITONIN (BEAKER) (test code = < ng/mL <0.05 3036) SEPSIS RISK (ng/mL)Low: 0.05-0.50Intermediate: 0.51-2.00High: >=2.01TROPONIN [id number] 22:08:00 Test Item Value Reference Range Interpretation Comments TROPONIN I (BEAKER) (test code = [...] failure, acidosis, acute neurological disease, and persistent tachyarrhythmia.[employer] ID - BSCOMPREHENSIVE METABOLIC [id number] 22:02:00 Test Item Value Reference Range Interpretation Comments TOTAL PROTEIN 6.5 gm/dL 6.0-8.3 (BEAKER) (test code = 770) ALBUMIN (BEAKER) 4.0 g/dL 3.5-5.0 (test code = 1145) ALKALINE PHOSPHATASE 80 U/L 40-150 (BEAKER) (test code = 346) BILIRUBIN TOTAL 0.3 mg/dL 0.2-1.2 (BEAKER) (test code = 377) SODIUM (BEAKER) (test 140 meq/L 136-145 code = 381) POTASSIUM (BEAKER) 4.1 meq/L 3.5-5.1 (test code = 379) CHLORIDE (BEAKER) 108 meq/L 98-107 H (test code = 382) CO2 (BEAKER) (test 26 meq/L 22-29 code = 355) BLOOD UREA NITROGEN 8 mg/dL 7-21 (BEAKER) (test code = 354) CREATININE (BEAKER) 0.71 mg/dL 0.57-1.25 (test code = 358) GLUCOSE RANDOM 120 mg/dL 70-105 H (BEAKER) (test code = 652) CALCIUM (BEAKER) 8.5 mg/dL 8.4-10.2 (test code = 697) AST (SGOT) (BEAKER) 21 U/L 5-34 (test code = 353) ALT (SGPT) (BEAKER) 24 U/L 6-55 (test code = 347) EGFR (BEAKER) (test 128 ESTIMATE D GFR IS code = 1092) mL/min/1.73 sq NOT ACCURA TE m CREATININE CLEARANCE IN PREDICTING GLOMERULAR FILTRATION RATE . ESTIMATED GFR I S NOT APPLICABLE FOR DIALYSIS PATIEN TS. [employer] ID - BSLACTIC ACID, [id number] 21:53:00 Test Item Value Reference Range Interpretation Comments LACTATE BLOOD VENOUS (2) (BEAKER) 1.05 mmol/L 0.50-2.20 (test code = 2872) [employer] Adjuster ID - DBCBC W/PLT COUNT & AUTO [id number] 21:45:00 Test Item Value Reference Range Interpretation Comments WHITE BLOOD CELL COUNT (BEAKER) 3.9 K/ L 3.5-10.5 (test code = 775) RED BLOOD CELL COUNT (BEAKER) 3.79 M/ L 4.63-6.08 L (test code = 761) HEMOGLOBIN (BEAKER) (test code = 11.5 GM/DL 13.7-17.5 L 410) HEMATOCRIT (BEAKER) (test code = 32.4 % 40.1-51.0 L 411) MEAN CORPUSCULAR VOLUME (BEAKER) 85.5 fL 79.0-92.2 (test code = 753) MEAN CORPUSCULAR HEMOGLOBIN 30.3 pg 25.7-32.2 (BEAKER) (test code = 751) MEAN CORPUSCULAR HEMOGLOBIN CONC 35.5 GM/DL 32.3-36.5 (BEAKER) (test code = 752) RED CELL DISTRIBUTION WIDTH 14.7 % 11.6-14.4 H (BEAKER) (test code = 412) PLATELET COUNT (BEAKER) (test 150 K/CU MM 150-450 code = 756) MEAN PLATELET VOLUME (BEAKER) 8.9 fL 9.4-12.4 L (test code = 754) NUCLEATED RED BLOOD CELLS 0 /100 WBC 0-0 (BEAKER) (test code = 413) NEUTROPHILS RELATIVE PERCENT 53 % (BEAKER) (test code = 429) LYMPHOCYTES RELATIVE PERCENT 38 % (BEAKER) (test code = 430) MONOCYTES RELATIVE PERCENT 7 % (BEAKER) (test code = 431) EOSINOPHILS RELATIVE PERCENT 2 % (BEAKER) (test code = 432) BASOPHILS RELATIVE PERCENT 1 % (BEAKER) (test code = 437) NEUTROPHILS ABSOLUTE COUNT 2.07 K/ L 1.78-5.38 (BEAKER) (test code = 670) LYMPHOCYTES ABSOLUTE COUNT 1.47 K/ L 1.32-3.57 (BEAKER) (test code = 414) MONOCYTES ABSOLUTE COUNT (BEAKER) 0.27 K/ L 0.30-0.82 L (test code = 415) EOSINOPHILS ABSOLUTE COUNT 0.06 K/ L 0.04-0.54 (BEAKER) (test code = 416) BASOPHILS ABSOLUTE COUNT (BEAKER) 0.04 K/ L 0.01-0.08 (test code = 417) IMMATURE GRANULOCYTES-RELATIVE 0 % 0-1 PERCENT (BEAKER) (test code = 2801) MR, ABDOMEN, [id number] 10:43:00FINAL REPORT MRI of the abdomen dated November 17, 2019 COMPARISON: November 01, 2019 Comment: Multiplanar T1 and T2-weighted images of the abdomen, postcontrast axial and coronal T1-weigh kathryn images of the abdomen were obtained. Liver and spleen are enlarged. Liver measures 18.2 cm in the right midclavicular line. Spleen measures 14 x 4.82 x 10.4 cm. No abnormal enhancement or suspicious mass is seen in the liver. 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 Multiple collateral veins are seen in the splenic hilum and omentum. The splenic vein adjacent to the splenic hilum is small caliber. No splenic thrombosis is seen. The portal vein is patent without thrombosis. Main portal vein measures approximately 1.6 cm in diameter. Gallbladder is contracted. No gallstone or biliary dilatation is seen. Pancreas and adrenals are unremarkable. Both kidneys are normal in size and functioning. The visualized small and large bowel are unremarkable. No ascites is seen in the abdomen. IMPRESSION:1. Hepatosplenomegaly.2. 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 Signed: Carrington Garcia MDReport Verified Date/Time: 11/17/2019 10:43:53 Reading Location: [address] Body Reading Room MR abdomen without & with IV [id number] 10:43:00Interface, External Ris In - 11/17/2019 11:26 AM CDTFINAL REPORT MRI of the abdomen dated November 17, 2019 COMPARISON: November 01, 2019 Comment: Multiplanar T1 and T2-weighted images ofthe abdomen, postcontrast axial and coronal T1- weighted images of the abdomen were obtained. Liver and spleen are enlarged. Liver measures 18.2 cm in the right midclavicular line. Spleen measures 14 x 4 .82 x 10.4 cm. No abnormal enhancement or suspicious mass is seen in the liver. There is complete thrombosis of the distal superior mesenteric vein near the portal confluence. Multiple collateral veinsare seen in the splenic hilum and omentum. The splenic vein adjacent to the splenic hilum is small caliber. No splenic thrombosis is seen. The portal vein is patent without thrombosis. Main portal veinmeasures approximately 1.6 cm in diameter. Gallbladder is contracted. No gallstone or biliary dilatation is seen. Pancreas and adrenals are unremarkable. Both kidneys are normal in size and functioning. The visualized small and large bowel are unremarkable. No ascites is seen in the abdomen. IMPRESSION:1. Hepatosplenomegaly.2. 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 Signed: Carrington Garciaepshan Verified Date/Time: 11/17/2019 10:43:53 Reading Location: [facility] Reading [facility] [id number] 19:44:00 Test Item Value Reference Range Interpretation Comments TROPONIN I (BEAKER) (test code = [...] failure, acidosis, acute neurological disease, and persistent tachyarrhythmia.[employer] Adjust[employer] ID - [id number] 19:36:00 Test Item Value Reference Range Interpretation Comments ETHANOL (BEAKER) (test code = 400) < mg/dL <=10 [employer] Adjuster ID - DBTROPONIN [id number] 12:00:00 Test Item Value Reference Range Interpretation Comments TROPONIN I (BEAKER) (test code = 0.02 ng/mL 0.00-0.03 397) Troponin I (TnI) levels must be interpreted [...] failure, acidosis, acute neurological disease, and persistent tachyarrhythmia.[employer] Adjuster ID - GIOPHOSPHORUS 2019-11-14 11:53:00 Test Item Value Reference Range Interpretation Comments PHOSPHORUS (BEAKER) (test code = 3.1 mg/dL 2.3-4.7 604) [employer] Adjuster ID - [id number] 11:53:00 Test Item Value Reference Range Interpretation Comments MAGNESIUM (BEAKER) (test code = 1.8 mg/dL 1.6-2.6 627) [employer] Adjuster ID - GIOBASIC METABOLIC [id number] 11:53:00 Test Item Value Reference Range Interpretation Comments SODIUM (BEAKER) 135 meq/L 136-145 L (test code = 381) POTASSIUM (BEAKER) 3.8 meq/L 3.5-5.1 (test code = 379) CHLORIDE (BEAKER) 101 meq/L 98-107 (test code = 382) CO2 (BEAKER) (test 12 meq/L 22-29 L code = 355) BLOOD UREA NITROGEN 16 mg/dL 7-21 (BEAKER) (test code = 354) CREATININE (BEAKER) 0.76 mg/dL 0.57-1.25 (test code = 358) GLUCOSE RANDOM 123 mg/dL 70-105 H (BEAKER) (test code = 652) CALCIUM (BEAKER) 9.8 mg/dL 8.4-10.2 (test code = 697) EGFR (BEAKER) (test 118 mL/min/1.73 ESTIM ATED GFR IS code = 1092) sq m NOT ACCURATE CREATININE CLEARANCE IN PREDICTING GLOMERULAR FILTRATION RATE . ESTIMATED GFR I S NOT APPLICABLE FOR DIALYSIS PATIEN TS. [employer] Adjuster ID - GIOHEPATIC FUNCTION [id number] 11:53:00 Test Item Value Reference Range Interpretation Comments TOTAL PROTEIN (BEAKER) (test code = 8.6 gm/dL 6.0-8.3 H 770) ALBUMIN (BEAKER) (test code = 1145) 5.0 g/dL 3.5-5.0 BILIRUBIN TOTAL (BEAKER) (test code 0.3 mg/dL 0.2-1.2 = 377) BILIRUBIN DIRECT (BEAKER) (test 0.2 mg/dL 0.1-0.5 code = 706) ALKALINE PHOSPHATASE (BEAKER) (test 103 U/L 40-150 code = 346) AST (SGOT) (BEAKER) (test code = 31 U/L 5-34 353) ALT (SGPT) (BEAKER) (test code = 41 U/L 6-55 347) [employer] Adjuster ID - [id number] 11:53:00 Test Item Value Reference Range Interpretation Comments LIPASE (BEAKER) (test code = 749) 22 U/L 8-78 [employer] Adjuster ID - EMERSONPROTHROMBIN TIME/[id number] 11:39:00 Test Item Value Reference Range Interpretation Comments PROTIME (BEAKER) (test code = 13.5 seconds 11.9-14.2 759) INR (BEAKER) (test code = 370) 1.1 <=5.9 Effective 12/11/2018: PT Reference Range ChangeNew: 11.9-14.2 Previous: 11.7- 14.7RECOMMENDED COUMADIN/WARFARIN INR THERAPY RANGESSTANDARD DOSE: 2.0-3.0 Includes: PROPHYLAXIS for venous thrombosis, systemic embolization; TREATMENT for venous thrombosis and/or pulmonary embolus.HIGH RISK: Target INR is2.5-3.5 for patients wiht mechanical heart valves.RAD, CHEST, 1 VIEW, NON [id number] 11:35:00Upright chestReason for exam:->ABDOMINAL PAINReason for exam:- >RECTAL BLEEDINGShould this be performed at the bedside?->YesFINAL REPORT INDICATION: ABDOMINAL PAINRECTAL BLEEDING COMPARISON: March 22, 2019 TECHNIQUE: Single frontal view of the chest. FINDINGS: Lungs and pleura: Clear lungs. No effusion.Heart and mediastinum: Normal heart size. Unremarkable mediastinal contours.Osseous structures: No acute abnormality.Other: None. IMPRESSION: No acute intrathoracic abnormality. Signed: JR Holly Robert MDReport Verified Date/Time: 11/14/2019 11:35:36 Reading Location: [facility] Radiology Reading Room CBC W/PLT COUNT & AUTO [id number] 11:30:00 Test Item Value Reference Range Interpretation Comments WHITE BLOOD CELL COUNT (BEAKER) 12.8 K/ L 3.5-10.5 H (test code = 775) RED BLOOD CELL COUNT (BEAKER) 5.19 M/ L 4.63-6.08 (test code = 761) HEMOGLOBIN (BEAKER) (test code = 15.1 GM/DL 13.7-17.5 410) HEMATOCRIT (BEAKER) (test code = 44.9 % 40.1-51.0 411) MEAN CORPUSCULAR VOLUME (BEAKER) 86.5 fL 79.0-92.2 (test code = 753) MEAN CORPUSCULAR HEMOGLOBIN 29.1 pg 25.7-32.2 (BEAKER) (test code = 751) MEAN CORPUSCULAR HEMOGLOBIN CONC 33.6 GM/DL 32.3-36.5 (BEAKER) (test code = 752) RED CELL DISTRIBUTION WIDTH 15.5 % 11.6-14.4 H (BEAKER) (test code = 412) PLATELET COUNT (BEAKER) (test 350 K/CU MM 150-450 code = 756) MEAN PLATELET VOLUME (BEAKER) 8.5 fL 9.4-12.4 L (test code = 754) NUCLEATED RED BLOOD CELLS 0 /100 WBC 0-0 (BEAKER) (test code = 413) NEUTROPHILS RELATIVE PERCENT 78 % (BEAKER) (test code = 429) LYMPHOCYTES RELATIVE PERCENT 16 % (BEAKER) (test code = 430) MONOCYTES RELATIVE PERCENT 6 % (BEAKER) (test code = 431) EOSINOPHILS RELATIVE PERCENT 0 % (BEAKER) (test code = 432) BASOPHILS RELATIVE PERCENT 0 % (BEAKER) (test code = 437) NEUTROPHILS ABSOLUTE COUNT 9.94 K/ L 1.78-5.38 H (BEAKER) (test code = 670) LYMPHOCYTES ABSOLUTE COUNT 2.05 K/ L 1.32-3.57 (BEAKER) (test code = 414) MONOCYTES ABSOLUTE COUNT (BEAKER) 0.70 K/ L 0.30-0.82 (test code = 415) EOSINOPHILS ABSOLUTE COUNT 0.00 K/ L 0.04-0.54 L (BEAKER) (test code = 416) BASOPHILS ABSOLUTE COUNT (BEAKER) 0.05 K/ L 0.01-0.08 (test code = 417) IMMATURE GRANULOCYTES-RELATIVE 1 % 0-1 PERCENT (BEAKER) (test code = 2801) Renin, [id number] 06:02:00 Test Item Value Reference Range Interpretation Comments PRA,LC/MS/MS 0.35 ng/mL/h 0.25-5.82 This test was developed (test code = and its analyti elvira [id number]) performance characteristics havebeen determined by [employer] [facility] [facility].It h as not been cleared or approved by FDA. This as say has been validatedp ursuant to the CLIA reg ulations and is used for clinical purposes. RADHA (test Performing Lab code = RADHA) [employer] [facility] [address] [place] [address] Katrin Skelton MD, PhD, DAJUAN [facility] METABOLIC [id number] 06:55:00 Test Item Value Reference Range Interpretation Comments SODIUM (BEAKER) 137 meq/L 136-145 (test code = 381) POTASSIUM (BEAKER) 4.5 meq/L 3.5-5.1 (test code = 379) CHLORIDE (BEAKER) 105 meq/L 98-107 (test code = 382) CO2 (BEAKER) (test 25 meq/L 22-29 code = 355) BLOOD UREA NITROGEN 13 mg/dL 7-21 (BEAKER) (test code = 354) CREATININE (BEAKER) 0.79 mg/dL 0.57-1.25 (test code = 358) GLUCOSE RANDOM 110 mg/dL 70-105 H (BEAKER) (test code = 652) CALCIUM (BEAKER) 9.5 mg/dL 8.4-10.2 (test code = 697) EGFR (BEAKER) (test 113 mL/min/1.73 ESTIM ATED GFR IS code = 1092) sq m NOT ACCURATE CREATININE CLEARANCE IN PREDICTING GLOMERULAR FILTRATION RATE . ESTIMATED GFR I S NOT APPLICABLE FOR DIALYSIS PATIEN TS. [employer] Unit Adjuster ID - PIAYA LCORTISOL,60 [id number] 16:44:00 Test Item Value Reference Range Interpretation Comments CORTISOL BASELINE NETWORKED < mcg/dL (BEAKER) (test code = 2307) CORTISOL 30 MINUTE NETWORKED 6.5 mcg/dL (BEAKER) (test code = 2308) CORTISOL, 60 MINUTE (BEAKER) (test 8.7 ug/dL code = 1805) ACTH STIMULATION TEST INTERPRETATION GUIDELINES(Synonyms: Cortrosyn Test, Cosyntropin or Corticotropin Stimulation Test)Adenocorticotropic hormone (ACTH)is a tropic hormone, made in the pituitary gland, which travels trhough the bloodstream and stimulates the cortex of the adrenal glands to release cortisol. Cortisol is a primary hormone, which aids the body's metabolism of fats, carbohydrates, and protein as well as sodium and potassium regulation.ACTH Stimulation Test: Exogenous administrationof biologically active ACTH stimulates the secretion of cortisol from the adrenal gland. This test is used to evaluate adrenal function by measuring cortisol levels at baseline and at 30 and 60 minutesafter the administration of 250 micrograms of cosyntropin (Cortrosyn). Patients who have received exogenous corticosteroids immediately prior to performing the ACTH Stimulation Test will often have elevated baseline cortisol levels, which may lead to erroneous interpretation of test results. The notable exception is with dexamethasone.Normal Response: An increase in cortisol after stimulation by ACTHis normal. Post-stimulation cortisol concentration should be greater than 20 mcg/dL or the rate of rise from baseline cortisol should be greater than or equal to 9 mcg/dL.Patients with sepsis or septicshock: According to a study by Shellie et al (CORBIN 2000,283(8):3870-45), the ACTH Stimulation Test provides important prognostic information. This study defined 3 groups of patients with sepsis or septic shock: 1. Good Survival: Low basal cortisol (<or=34 mcg/dL) and high ACTH response (>9mcg/dL) 2. Intermediate Survival: Low basal cortisol (<34 mcg/dL) and low response to ACTH (&l t;or=9 mcg/dL) OR High basal cortisol (>34 mcg/dL) or high ACTH response (>9 mcg/dL) 3.Poor Survival: High basal cortisol (>34 mcg/dL) and low ACTH response (<or=9 mcg/dL).Treatment of patients with relative adrenal dysfunction may be indicated based on test results and the clinical condition of the patient. Additional information, including treatment recommendations, is available in critically ill patients, approved by the Pharmacy, Nutrition, and Therapeutics Committee on 06/24/2004 and available through the Pharmacy Policy and Procedure Section on The Source.[employer] Spr[employer] Unit Adjuster ID - MATI MENDEZ,30 [id number] 16:44:00 Test Item Value Reference Range Interpretation Comments CORTISOL BASELINE NETWORKED < mcg/dL (BEAKER) (test code = 2307) CORTISOL, 30 MINUTE (BEAKER) (test 6.5 ug/dL code = 1804) ACTH STIMULATION TEST INTERPRETATION GUIDELINES(Synonyms: Cortrosyn Test, Cosyntropin or Corticotropin Stimulation Test)Adenocorticotropic hormone (ACTH)is a tropic hormone, made in the pituitary gland, which travels trhough the bloodstream and stimulates the cortex of the adrenal glands to release cortisol. Cortisol is a primary hormone, which aids the body's metabolism of fats, carbohydrates, and protein as well as sodium and potassium regulation.ACTH Stimulation Test: Exogenous administrationof biologically active ACTH stimulates the secretion of cortisol from the adrenal gland. This test is used to evaluate adrenal function by measuring cortisol levels at baseline and at 30 and 60 minutesafter the administration of 250 micrograms of cosyntropin (Cortrosyn). Patients who have received exogenous corticosteroids immediately prior to performing the ACTH Stimulation Test will often have elevated baseline cortisol levels, which may lead to erroneous interpretation of test results. The notable exception is with dexamethasone.Normal Response: An increase in cortisol after stimulation by ACTHis normal. Post-stimulation cortisol concentration should be greater than 20 mcg/dL or the rate of rise from baseline cortisol should be greater than or equal to 9 mcg/dL.Patients with sepsis or septicshock: According to a study by Shellie et al (CORBIN 2000,283(8):1038-45), the ACTH Stimulation Test provides important prognostic information. This study defined 3 groups of patients with sepsis or septic shock: 1. Good Survival: Low basal cortisol (<or=34 mcg/dL) and high ACTH response (>9mcg/dL) 2. Intermediate Survival: Low basal cortisol (<34 mcg/dL) and low response to ACTH (&l t;or=9 mcg/dL) OR High basal cortisol (>34 mcg/dL) or high ACTH response (>9 mcg/dL) 3.Poor Survival: High basal cortisol (>34 mcg/dL) and low ACTH response (<or=9 mcg/dL).Treatment of patients with relative adrenal dysfunction may be indicated based on test results and the clinical condition of the patient. Additional information, including treatment recommendations, is available in critically ill patients, approved by the Pharmacy, Nutrition, and Therapeutics Committee on 06/24/2004 and available through the Pharmacy Policy and Procedure Section on The Source.[employer] Adjuster ID - MATI CCORTISOL,BASELINE 2019-11-09 15:51:00 Test Item Value Reference Range Interpretation Comments CORTISOL, BASELINE (BEAKER) (test < ug/dL code = 1803) ACTH STIMULATION TEST INTERPRETATION GUIDELINES(Synonyms: Cortrosyn Test, Cosyntropin or Corticotropin Stimulation Test)Adenocorticotropic hormone (ACTH)is a tropic hormone, made in the pituitary gland, which travels trhough the bloodstream and stimulates the cortex of the adrenal glands to release cortisol. Cortisol is a primary hormone, which aids the body's metabolism of fats, carbohydrates, and protein as well as sodium and potassium regulation.ACTH Stimulation Test: Exogenous administrationof biologically active ACTH stimulates the secretion of cortisol from the adrenal gland. This test is used to evaluate adrenal function by measuring cortisol levels at baseline and at 30 and 60 minutesafter the administration of 250 micrograms of cosyntropin (Cortrosyn). Patients who have received exogenous corticosteroids immediately prior to performing the ACTH Stimulation Test will often have elevated baseline cortisol levels, which may lead to erroneous interpretation of test results. The notable exception is with dexamethasone.Normal Response: An increase in cortisol after stimulation by ACTHis normal. Post-stimulation cortisol concentration should be greater than 20 mcg/dL or the rate of rise from baseline cortisol should be greater than or equal to 9 mcg/dL.Patients with sepsis or septicshock: According to a study by Shellie et al (CORBIN 2000,283(8):1038-45), the ACTH Stimulation Test provides important prognostic information. This study defined 3 groups of patients with sepsis or septic shock: 1. Good Survival: Low basal cortisol (<or=34 mcg/dL) and high ACTH response (>9mcg/dL) 2. Intermediate Survival: Low basal cortisol (<34 mcg/dL) and low response to ACTH (&l t;or=9 mcg/dL) OR High basal cortisol (>34 mcg/dL) or high ACTH response (>9 mcg/dL) 3.Poor Survival: High basal cortisol (>34 mcg/dL) and low ACTH response (<or=9 mcg/dL).Treatment of patients with relative adrenal dysfunction may be indicated based on test results and the clinical condition of the patient. Additional information, including treatment recommendations, is available in critically ill patients, approved by the Pharmacy, Nutrition, and Therapeutics Committee on 06/24/2004 and available through the Pharmacy Policy and Procedure Section on The Source.[employer] Spr[employer] Unit Adjuster ID - MATI COperator ID - MATI CBASIC METABOLIC [id number] 15:45:00 Test Item Value Reference Range Interpretation Comments SODIUM (BEAKER) 137 meq/L 136-145 (test code = 381) POTASSIUM (BEAKER) 5.0 meq/L 3.5-5.1 (test code = 379) CHLORIDE (BEAKER) 104 meq/L 98-107 (test code = 382) CO2 (BEAKER) (test 27 meq/L 22-29 code = 355) BLOOD UREA NITROGEN 12 mg/dL 7-21 (BEAKER) (test code = 354) CREATININE (BEAKER) 0.86 mg/dL 0.57-1.25 (test code = 358) GLUCOSE RANDOM 116 mg/dL 70-105 H (BEAKER) (test code = 652) CALCIUM (BEAKER) 9.6 mg/dL 8.4-10.2 (test code = 697) EGFR (BEAKER) (test 102 mL/min/1.73 ESTIM ATED GFR IS code = 1092) sq m NOT ACCURATE CREATININE CLEARANCE IN PREDICTING GLOMERULAR FILTRATION RATE . ESTIMATED GFR I S NOT APPLICABLE FOR DIALYSIS PATIEN TS. [employer] Spr[employer] Unit Adjuster ID - MATI CPancreatic elastase, [id number] 19:20:00 Test Item Value Reference Interpretation Comments Range Pancreatic Elastase 140 mcg/g L Adult a nd Pediatric (test code = [place] [address]-3) Pancreatic Elas tase-1: No rmal: >200 mcg/gMo derate Pancreatic Insufficiency: 100-200 mcg/g Severe Pancreatic Insufficiency: <100 mcg/g Elas tase-1 (E-1) assay res ults are expressedin mcg/g, which represent mcg E1/g feces. It is not necessary to in terrupt enzymesubstitut ion therapy. RADHA (test code = Performing Lab RADHA) [facility] [address] [place] [address] Katrin Skelton MD, PhD, DAJUAN Lab Interpretation Abnormal (test code = 94431-2) [facility] [id number] 13:45:00Surgical Pathology Report Case: [id number] Authorizing Provider: Wojciech Rincon Collected: 11/07/2019 11:22 AM Ordering Location: [address] Received: 11/07/2019 02:19 PM Service Pathologist: Inocencio Carballo MD Specimen: Biopsy, Gastric, random gastric bx STOMACH, RANDOM GASTRIC BIOPSY: - ANTRAL AND BODY-TYPE GASTRIC MUCOSA WITH MINIMAL- MILD CHRONIC INACTIVE GASTRITIS - NEGATIVE FOR HELICOBACTER PYLORI LIKE ORGANISMS BY WARTHIN-STARRY STAIN Signing PathologistDirect Phone Line: [phone] signed by Inocencio Carballo MD on 11/08/2019 at 1:45 [id number], [id number] painRandom gastric biopsyReceived in formalin labeled with the patient's name, accession number and "biopsy, gastric" are four irregular prakash soft tissue fragments, each measuring 0.3 cm which are submitted in toto in A1. CG/pl Performed.Block A1: Warthin-StarryThe interpretation of this case included the use of immunohistochemistry or special stains.Control Slides Examined: In-house known positive controls were evaluated along with the test tissue. These control slides run alongside of the patients sample show appropriate staining. Internal positive and negative controls whenavailable are evaluated Immunohistochemistry technical testing was performed at [facility], Pathology Laboratory where it was developed and its performance characteristics were determined. It has not been cleared or approved by the U.S. Food and Drug Administration. The FDA has determined that such clearance or approval is not necessary. The test is used for clinical purposes. It should not be regarded as investigational or for research. This laboratory is certified under the Clinical Laboratory Improvement Amendments of 1988 (CLIA-88) as qualified to perform high complexity clinical laboratory testing.[facility], Department of Pathology, [address] [place] [address], [place] [address], [facility], [facility] of [facility], [address] [place] [address], [facility], [facility], [address] [place] [address], [id number] 09:53:00 Test Item Value Reference Range Interpretation Comments CORTISOL, TOTAL (BEAKER) (test code = < ug/dL 3.7-19.4 L 2755) [employer] Unit Adjuster ID - MATI CBASIC METABOLIC [id number] 05:46:00 Test Item Value Reference Range Interpretation Comments SODIUM (BEAKER) 139 meq/L 136-145 (test code = 381) POTASSIUM (BEAKER) 4.9 meq/L 3.5-5.1 (test code = 379) CHLORIDE (BEAKER) 106 meq/L 98-107 (test code = 382) CO2 (BEAKER) (test 28 meq/L 22-29 code = 355) BLOOD UREA NITROGEN 15 mg/dL 7-21 (BEAKER) (test code = 354) CREATININE (BEAKER) 0.71 mg/dL 0.57-1.25 (test code = 358) GLUCOSE RANDOM 100 mg/dL 70-105 (BEAKER) (test code = 652) CALCIUM (BEAKER) 9.3 mg/dL 8.4-10.2 (test code = 697) EGFR (BEAKER) (test 128 mL/min/1.73 ESTIM ATED GFR IS code = 1092) sq m NOT ACCURATE CREATININE CLEARANCE IN PREDICTING GLOMERULAR FILTRATION RATE . ESTIMATED GFR I S NOT APPLICABLE FOR DIALYSIS PATIEN TS. [employer] Unit Adjuster ID - ANA [facility] (HEMOGRAM ONLY)2019-11-08 05:15:00 Test Item Value Reference Range Interpretation Comments WHITE BLOOD CELL COUNT (BEAKER) 4.1 K/ L 3.5-10.5 (test code = 775) RED BLOOD CELL COUNT (BEAKER) 3.69 M/ L 4.63-6.08 L (test code = 761) HEMOGLOBIN (BEAKER) (test code = 11.1 GM/DL 13.7-17.5 L 410) HEMATOCRIT (BEAKER) (test code = 32.3 % 40.1-51.0 L 411) MEAN CORPUSCULAR VOLUME (BEAKER) 87.5 fL 79.0-92.2 (test code = 753) MEAN CORPUSCULAR HEMOGLOBIN 30.1 pg 25.7-32.2 (BEAKER) (test code = 751) MEAN CORPUSCULAR HEMOGLOBIN CONC 34.4 GM/DL 32.3-36.5 (BEAKER) (test code = 752) RED CELL DISTRIBUTION WIDTH 14.7 % 11.6-14.4 H (BEAKER) (test code = 412) PLATELET COUNT (BEAKER) (test 118 K/CU MM 150-450 L code = 756) MEAN PLATELET VOLUME (BEAKER) 9.9 fL 9.4-12.4 (test code = 754) NUCLEATED RED BLOOD CELLS 0 /100 WBC 0-0 (BEAKER) (test code = 413) HEPATIC FUNCTION [id number] 05:19:00 Test Item Value Reference Range Interpretation Comments TOTAL PROTEIN (BEAKER) (test code = 6.6 gm/dL 6.0-8.3 770) ALBUMIN (BEAKER) (test code = 1145) 4.0 g/dL 3.5-5.0 BILIRUBIN TOTAL (BEAKER) (test code 0.2 mg/dL 0.2-1.2 = 377) BILIRUBIN DIRECT (BEAKER) (test 0.1 mg/dL 0.1-0.5 code = 706) ALKALINE PHOSPHATASE (BEAKER) (test 87 U/L 40-150 code = 346) AST (SGOT) (BEAKER) (test code = 18 U/L 5-34 353) ALT (SGPT) (BEAKER) (test code = 18 U/L 6-55 347) [employer] Adjuster ID - JEFFRY WBASIC METABOLIC [id number] 05:19:00 Test Item Value Reference Range Interpretation Comments SODIUM (BEAKER) 138 meq/L 136-145 (test code = 381) POTASSIUM (BEAKER) 4.4 meq/L 3.5-5.1 (test code = 379) CHLORIDE (BEAKER) 105 meq/L 98-107 (test code = 382) CO2 (BEAKER) (test 28 meq/L 22-29 code = 355) BLOOD UREA NITROGEN 14 mg/dL 7-21 (BEAKER) (test code = 354) CREATININE (BEAKER) 0.77 mg/dL 0.57-1.25 (test code = 358) GLUCOSE RANDOM 90 mg/dL 70-105 (BEAKER) (test code = 652) CALCIUM (BEAKER) 9.3 mg/dL 8.4-10.2 (test code = 697) EGFR (BEAKER) (test 116 mL/min/1.73 ESTIM ATED GFR IS code = 1092) sq m NOT ACCURATE CREATININE CLEARANCE IN PREDICTING GLOMERULAR FILTRATION RATE . ESTIMATED GFR I S NOT APPLICABLE FOR DIALYSIS PATIEN TS. [employer] Adjuster ID - JEFFRY WCBC (HEMOGRAM ONLY)2019-11-07 04:44:00 Test Item Value Reference Range Interpretation Comments WHITE BLOOD CELL COUNT (BEAKER) 3.3 K/ L 3.5-10.5 L (test code = 775) RED BLOOD CELL COUNT (BEAKER) 3.78 M/ L 4.63-6.08 L (test code = 761) HEMOGLOBIN (BEAKER) (test code = 11.6 GM/DL 13.7-17.5 L 410) HEMATOCRIT (BEAKER) (test code = 33.6 % 40.1-51.0 L 411) MEAN CORPUSCULAR VOLUME (BEAKER) 88.9 fL 79.0-92.2 (test code = 753) MEAN CORPUSCULAR HEMOGLOBIN 30.7 pg 25.7-32.2 (BEAKER) (test code = 751) MEAN CORPUSCULAR HEMOGLOBIN CONC 34.5 GM/DL 32.3-36.5 (BEAKER) (test code = 752) RED CELL DISTRIBUTION WIDTH 15.0 % 11.6-14.4 H (BEAKER) (test code = 412) PLATELET COUNT (BEAKER) (test 105 K/CU MM 150-450 L code = 756) MEAN PLATELET VOLUME (BEAKER) 9.6 fL 9.4-12.4 (test code = 754) NUCLEATED RED BLOOD CELLS 0 /100 WBC 0-0 (BEAKER) (test code = 413) [id number] 20:09:00 Test Item Value Reference Range Interpretation Comments ACTH (test 16 pg/mL 6-50 Reference rang e code = applies only to the ) specimens colle cted between 7am-10a m. RADHA (test code Performing Lab EZ = RADHA) [facility] [address] [place] [address] Katrin Skelton MD, PhD, DAJUAN [facility] Center[facility]IC [facility]OLIC [id number] 17:16:00 Test Item Value Reference Range Interpretation Comments SODIUM (BEAKER) 139 meq/L 136-145 (test code = 381) POTASSIUM (BEAKER) 4.9 meq/L 3.5-5.1 (test code = 379) CHLORIDE (BEAKER) 105 meq/L 98-107 (test code = 382) CO2 (BEAKER) (test 29 meq/L 22-29 code = 355) BLOOD UREA NITROGEN 13 mg/dL 7-21 (BEAKER) (test code = 354) CREATININE (BEAKER) 0.82 mg/dL 0.57-1.25 (test code = 358) GLUCOSE RANDOM 105 mg/dL 70-105 (BEAKER) (test code = 652) CALCIUM (BEAKER) 9.6 mg/dL 8.4-10.2 (test code = 697) EGFR (BEAKER) (test 108 mL/min/1.73 ESTIM ATED GFR IS code = 1092) sq m NOT ACCURATE CREATININE CLEARANCE IN PREDICTING GLOMERULAR FILTRATION RATE . ESTIMATED GFR I S NOT APPLICABLE FOR DIALYSIS PATIEN TS. [employer] Adjuster ID - BSChloride, random [id number] 12:16:00 Test Item Value Reference Range Interpretation Comments ChlorideUr (test 104 meq/L code = 07735-3) RADHA (test code = Reference Range: No RADHA) NormalsOperator ID - ANA Puri [facility] CenterCreatinine, random [id number] 12:16:00 Test Item Value Reference Range Interpretation Comments Creatinine, Ur 19.6 mg/dL (test code = 2161-8) RADHA (test code = Reference Range: No RADHA) NormalsOperator ID - ANA Puri [facility] CenterPotassium, random [id number] 12:16:00 Test Item Value Reference Range Interpretation Comments Potassium Urine 19.1 meq/L (test code = 2828-2) RADHA (test code = Reference Range: No RADHA) NormalsOperator ID - ANA [facility] [id number] 12:16:00 Test Item Value Reference Range Interpretation Comments Sodium Urine (test 91 meq/L code = 2955-3) RADHA (test code = Reference Range: No RADHA) NormalsOperator ID - ANA M [facility] CenterUrea Nitrogen, random [id number] 12:16:00 Test Item Value Reference Range Interpretation Comments Urea Nitrogen, Ur 179 mg/dL (test code = 3095-7) RADHA (test code = Reference Range: No RADHA) NormalsOperator ID - ANA M [facility] CenterCHLORIDE, RANDOM [id number] 12:16:00 Test Item Value Reference Range Interpretation Comments CHLORIDE URINE (BEAKER) (test code 104 meq/L = 682) Reference Range: No NormalsOperator ID - ANA MCREATININE, RANDOM URINE 2019-11-06 12:16:00 Test Item Value Reference Range Interpretation Comments CREATININE URINE (BEAKER) (test 19.6 mg/dL code = 375) Reference Range: No NormalsOperator ID - ANA MPOTASSIUM, RANDOM [id number] 12:16:00 Test Item Value Reference Range Interpretation Comments POTASSIUM URINE (BEAKER) (test 19.1 meq/L code = 195) Reference Range: No NormalsOperator ID - ANA MSODIUM, RANDOM [id number] 12:16:00 Test Item Value Reference Range Interpretation Comments SODIUM URINE (BEAKER) (test code = 91 meq/L 243) Reference Range: No NormalsOperator ID - ANA MUREA NITROGEN, RANDOM URINE 2019-11-06 12:16:00 Test Item Value Reference Range Interpretation Comments UREA NITROGEN URINE (BEAKER) (test 179 mg/dL code = 538) Reference Range: No NormalsOperator ID - ANA MLactate dehydrogenase (LDH) 2019-11-06 05:41:00 Test Item Value Reference Range Interpretation Comments LDH (test code = 2532-0) 171 U/L 125-220 RADHA (test code = RADHA) [employer] Adjuster ID - PIAYA L Lab Interpretation (test Normal code = 03076-8) [facility] CenterLACTATE DEHYDROGENASE (LDH)2019-11-06 05:41:00 Test Item Value Reference Range Interpretation Comments LACTATE DEHYDROGENASE (BEAKER) (test 171 U/L 125-220 code = 635) [employer] Adjuster ID - PIAYA LBASIC METABOLIC [id number] 05:41:00 Test Item Value Reference Range Interpretation Comments SODIUM (BEAKER) 137 meq/L 136-145 (test code = 381) POTASSIUM (BEAKER) 4.9 meq/L 3.5-5.1 (test code = 379) CHLORIDE (BEAKER) 105 meq/L 98-107 (test code = 382) CO2 (BEAKER) (test 28 meq/L 22-29 code = 355) BLOOD UREA NITROGEN 16 mg/dL 7-21 (BEAKER) (test code = 354) CREATININE (BEAKER) 0.78 mg/dL 0.57-1.25 (test code = 358) GLUCOSE RANDOM 88 mg/dL 70-105 (BEAKER) (test code = 652) CALCIUM (BEAKER) 9.5 mg/dL 8.4-10.2 (test code = 697) EGFR (BEAKER) (test 115 mL/min/1.73 ESTIM ATED GFR IS code = 1092) sq m NOT ACCURATE CREATININE CLEARANCE IN PREDICTING GLOMERULAR FILTRATION RATE . ESTIMATED GFR I S NOT APPLICABLE FOR DIALYSIS PATIEN TS. [employer] Adjuster ID - IDALIA [id number] 05:30:00 Test Item Value Reference Range Interpretation Comments Haptoglobin (test code = 42 mg/dL 14-258 4542-7) RADHA (test code = RADHA) [employer] Adjuster ID - ANA Puri Lab Interpretation (test Normal code = 42046-1) [facility] CenterHAPTOGLOBIN2020-04-23 05:30:00 Test Item Value Reference Range Interpretation Comments HAPTOGLOBIN (BEAKER) (test code = 42 mg/dL 14-258 366) [employer] Adjuster ID Laura PEREZ MPotassium-Stat [id number] 12:49:00 Test Item Value Reference Range Interpretation Comments Potassium (test code = 2823-3) 5.5 meq/L 3.6-5.5 Lab Interpretation (test code = Normal 24537-8) [facility] CenterPOTASSIUM-STAT [id number] 12:49:00 Test Item Value Reference Range Interpretation Comments POTASSIUM (BEAKER) (test code = 5.5 meq/L 3.6-5.5 379) SODIUM, RANDOM [id number] 09:30:00 Test Item Value Reference Range Interpretation Comments SODIUM URINE (BEAKER) (test code = 80 meq/L 243) Reference Range: No NormalsOperator ID - JUL CUREA NITROGEN, RANDOM URINE 2019-11-05 09:30:00 Test Item Value Reference Range Interpretation Comments UREA NITROGEN URINE (BEAKER) (test 107 mg/dL code = 538) Reference Range: No NormalsOperator ID - JUL CCHLORIDE, RANDOM [id number] 09:09:00 Test Item Value Reference Range Interpretation Comments CHLORIDE URINE (BEAKER) (test code = 91 meq/L 682) Reference Range: No NormalsOperator ID - JUL CCREATININE, RANDOM [id number] 09:09:00 Test Item Value Reference Range Interpretation Comments CREATININE URINE (BEAKER) (test 8.2 mg/dL code = 375) Reference Range: No NormalsOperator ID - JUL CPOTASSIUM, RANDOM [id number] 09:09:00 Test Item Value Reference Range Interpretation Comments POTASSIUM URINE (BEAKER) (test 19.5 meq/L code = 195) Reference Range: No NormalsOperator ID - JUL CURINALYSIS WITH MICROSCOPIC IF [id number] 08:55:00 Test Item Value Reference Range Interpretation Comments COLOR (BEAKER) (test code = 470) Colorless CLARITY (BEAKER) (test code = 469) Clear SPECIFIC GRAVITY UA (BEAKER) (test 1.003 1.001-1.035 code = 468) PH UA (BEAKER) (test code = 467) 6.5 5.0-8.0 PROTEIN UA (BEAKER) (test code = Negative Negative 464) GLUCOSE UA (BEAKER) (test code = Negative Negative 365) KETONES UA (BEAKER) (test code = Negative Negative 371) BILIRUBIN UA (BEAKER) (test code = Negative Negative 462) BLOOD UA (BEAKER) (test code = 461) Negative Negative NITRITE UA (BEAKER) (test code = Negative Negative 465) LEUKOCYTE ESTERASE UA (BEAKER) Negative Negative (test code = 466) UROBILINOGEN UA (BEAKER) (test code 0.2 mg/dL 0.2-1.0 = 463) SOURCE(BEAKER) (test code = 2795) [employer] Adjuster ID - [auto][employer] Adjuster ID - techOperator ID - techBASIC METABOLIC PANEL 2019-11-05 04:59:00 Test Item Value Reference Range Interpretation Comments SODIUM (BEAKER) 136 meq/L 136-145 (test code = 381) POTASSIUM (BEAKER) 5.5 meq/L 3.5-5.1 H (test code = 379) CHLORIDE (BEAKER) 105 meq/L 98-107 (test code = 382) CO2 (BEAKER) (test 27 meq/L 22-29 code = 355) BLOOD UREA NITROGEN 16 mg/dL 7-21 (BEAKER) (test code = 354) CREATININE (BEAKER) 0.77 mg/dL 0.57-1.25 (test code = 358) GLUCOSE RANDOM 109 mg/dL 70-105 H (BEAKER) (test code = 652) CALCIUM (BEAKER) 9.2 mg/dL 8.4-10.2 (test code = 697) EGFR (BEAKER) (test 116 mL/min/1.73 ESTIM ATED GFR IS code = 1092) sq m NOT ACCURATE CREATININE CLEARANCE IN PREDICTING GLOMERULAR FILTRATION RATE . ESTIMATED GFR I S NOT APPLICABLE FOR DIALYSIS PATIEN TS. [employer] Unit Adjuster ID - ANA MPOCT-GLUCOSE [id number] 23:47:00 Test Item Value Reference Range Interpretation Comments POC-GLUCOSE METER 87 mg/dL 70-110 : TESTED A T BSC 6720 (BEAKER) (test code = CHANCE [facility], 1538) [address]: [employer] Unit Adjuster/Techni daya ID = [id number] for RizviNina horn BASIC METABOLIC [id number] 22:04:00 Test Item Value Reference Range Interpretation Comments SODIUM (BEAKER) 136 meq/L 136-145 (test code = 381) POTASSIUM (BEAKER) 5.8 meq/L 3.5-5.1 H (test code = 379) CHLORIDE (BEAKER) 107 meq/L 98-107 (test code = 382) CO2 (BEAKER) (test 23 meq/L 22-29 code = 355) BLOOD UREA NITROGEN 16 mg/dL 7-21 (BEAKER) (test code = 354) CREATININE (BEAKER) 0.85 mg/dL 0.57-1.25 (test code = 358) GLUCOSE RANDOM 89 mg/dL 70-105 (BEAKER) (test code = 652) CALCIUM (BEAKER) 9.5 mg/dL 8.4-10.2 (test code = 697) EGFR (BEAKER) (test 104 mL/min/1.73 ESTIM ATED GFR IS code = 1092) sq m NOT ACCURATE CREATININE CLEARANCE IN PREDICTING GLOMERULAR FILTRATION RATE . ESTIMATED GFR I S NOT APPLICABLE FOR DIALYSIS PATIEN TS. [employer] Unit Adjuster ID - [id number] 15:28:00 Test Item Value Reference Range Interpretation Comments POTASSIUM (BEAKER) (test code = 6.3 meq/L 3.5-5.1 379) [employer] Unit Adjuster ID - NTPCORTISOL,60 [id number] 14:28:00 Test Item Value Reference Range Interpretation Comments CORTISOL BASELINE No specime n received NETWORKED (BEAKER) (test code = 2307) CORTISOL 30 MINUTE No specim en received NETWORKED (BEAKER) (test code = 2308) CORTISOL, 60 MINUTE 16.5 ug/dL (BEAKER) (test code = 1805) ACTH STIMULATION TEST INTERPRETATION GUIDELINES(Synonyms: Cortrosyn Test, Cosyntropin or Corticotropin Stimulation Test)Adenocorticotropic hormone (ACTH)is a tropic hormone, made in the pituitary gland, which travels trhough the bloodstream and stimulates the cortex of the adrenal glands to release cortisol. Cortisol is a primary hormone, which aids the body's metabolism of fats, carbohydrates, and protein as well as sodium and potassium regulation.ACTH Stimulation Test: Exogenous administrationof biologically active ACTH stimulates the secretion of cortisol from the adrenal gland. This test is used to evaluate adrenal function by measuring cortisol levels at baseline and at 30 and 60 minutesafter the administration of 250 micrograms of cosyntropin (Cortrosyn). Patients who have received exogenous corticosteroids immediately prior to performing the ACTH Stimulation Test will often have elevated baseline cortisol levels, which may lead to erroneous interpretation of test results. The notable exception is with dexamethasone.Normal Response: An increase in cortisol after stimulation by ACTHis normal. Post-stimulation cortisol concentration should be greater than 20 mcg/dL or the rate of rise from baseline cortisol should be greater than or equal to 9 mcg/dL.Patients with sepsis or septicshock: According to a study by Shellie et al (CORBIN 2000,283(8):0254-45), the ACTH Stimulation Test provides important prognostic information. This study defined 3 groups of patients with sepsis or septic shock: 1. Good Survival: Low basal cortisol (<or=34 mcg/dL) and high ACTH response (>9mcg/dL) 2. Intermediate Survival: Low basal cortisol (<34 mcg/dL) and low response to ACTH (<or=9 mcg/dL) OR High basal cortisol (>34 mcg/dL) or high ACTH response (>9 mcg/dL) 3.Poor Survival: High basal cortisol (>34 mcg/dL) and low ACTH response (<or=9 mcg/dL).Treatment of patients with relative adrenal dysfunction may be indicated based on test results and the cli nical condition of the patient. Additional information, including treatment recommendations, is available in critically ill patients, approved by the Pharmacy, Nutrition, and Therapeutics Committee on 06/24/2004 and available through the Pharmacy Policy and Procedure Section on The Source.[employer] Adjuster ID - [id number] 11:27:00 Test Item Value Reference Range Interpretation Comments CORTISOL, TOTAL (BEAKER) (test 14.5 ug/dL 3.7-19.4 code = 2755) [employer] Unit Adjuster ID - [id number] 11:26:00 Test Item Value Reference Range Interpretation Comments CORTISOL, TOTAL (BEAKER) (test code 3.7 ug/dL 3.7-19.4 = 2755) [employer] Unit Adjuster ID - NTPBASIC METABOLIC [id number] 09:34:00 Test Item Value Reference Range Interpretation Comments SODIUM (BEAKER) 134 meq/L 136-145 L (test code = 381) POTASSIUM (BEAKER) 5.5 meq/L 3.5-5.1 H (test code = 379) CHLORIDE (BEAKER) 106 meq/L 98-107 (test code = 382) CO2 (BEAKER) (test 23 meq/L 22-29 code = 355) BLOOD UREA NITROGEN 9 mg/dL 7-21 (BEAKER) (test code = 354) CREATININE (BEAKER) 0.77 mg/dL 0.57-1.25 (test code = 358) GLUCOSE RANDOM 92 mg/dL 70-105 (BEAKER) (test code = 652) CALCIUM (BEAKER) 10.1 mg/dL 8.4-10.2 (test code = 697) EGFR (BEAKER) (test 116 mL/min/1.73 ESTIM ATED GFR IS code = 1092) sq m NOT ACCURATE CREATININE CLEARANCE IN PREDICTING GLOMERULAR FILTRATION RATE . ESTIMATED GFR I S NOT APPLICABLE FOR DIALYSIS PATIEN TS. [employer] Unit Adjuster ID - AAHAMIDPOTASSIUM-STAT [id number] 09:18:00 Test Item Value Reference Range Interpretation Comments POTASSIUM (BEAKER) (test code = 5.6 meq/L 3.6-5.5 H 379) [id number] 06:38:00 Test Item Value Reference Range Interpretation Comments CORTISOL, TOTAL (BEAKER) (test code 2.4 ug/dL 3.7-19.4 L = 2755) [employer] Unit Adjuster ID - BSBASIC METABOLIC [id number] 06:18:00 Test Item Value Reference Range Interpretation Comments SODIUM (BEAKER) 135 meq/L 136-145 L (test code = 381) POTASSIUM (BEAKER) 6.3 meq/L 3.5-5.1 HH (test code = 379) CHLORIDE (BEAKER) 103 meq/L 98-107 (test code = 382) CO2 (BEAKER) (test 26 meq/L 22-29 code = 355) BLOOD UREA NITROGEN 9 mg/dL 7-21 (BEAKER) (test code = 354) CREATININE (BEAKER) 0.80 mg/dL 0.57-1.25 (test code = 358) GLUCOSE RANDOM 89 mg/dL 70-105 (BEAKER) (test code = 652) CALCIUM (BEAKER) 10.3 mg/dL 8.4-10.2 H (test code = 697) EGFR (BEAKER) (test 111 mL/min/1.73 ESTIM ATED GFR IS code = 1092) sq m NOT ACCURATE CREATININE CLEARANCE IN PREDICTING GLOMERULAR FILTRATION RATE . ESTIMATED GFR I S NOT APPLICABLE FOR DIALYSIS PATIEN TS. [employer] Unit Adjuster ID - BSPOCT-GLUCOSE [id number] 02:23:00 Test Item Value Reference Range Interpretation Comments POC-GLUCOSE METER 82 mg/dL 70-110 : TESTED A T BSC 6720 (BEAKER) (test code = [facility], 1538) [address]: [employer] Unit Adjuster/Techni daya ID = [id number] for Nina Interiano [id number] 00:42:00 Test Item Value Reference Range Interpretation Comments POTASSIUM (BEAKER) (test code = 7.0 meq/L 3.5-5.1 HH 379) [employer] Unit Adjuster ID - BSOsmolality, [id number] 18:20:00 Test Item Value Reference Range Interpretation Comments Osmolality, Ur (test code = 427 50-1,200 mOsm/kg mOsm/kg 2695-5) Lab Interpretation (test code Normal = 35872-2) [facility] CenterOSMOLALITY, [id number] 18:20:00 Test Item Value Reference Range Interpretation Comments OSMOLALITY URINE (BEAKER) (test 427 mOsm/kg 50-1,200 mOsm/kg code = 614) URINALYSIS WITH MICROSCOPIC IF [id number] 18:00:00 Test Item Value Reference Range Interpretation Comments COLOR (BEAKER) (test code = 470) Colorless CLARITY (BEAKER) (test code = 469) Clear SPECIFIC GRAVITY UA (BEAKER) (test 1.008 1.001-1.035 code = 468) PH UA (BEAKER) (test code = 467) 8.0 5.0-8.0 PROTEIN UA (BEAKER) (test code = Negative Negative 464) GLUCOSE UA (BEAKER) (test code = 100 mg/dL Negative A 365) KETONES UA (BEAKER) (test code = Negative Negative 371) BILIRUBIN UA (BEAKER) (test code = Negative Negative 462) BLOOD UA (BEAKER) (test code = 461) Negative Negative NITRITE UA (BEAKER) (test code = Negative Negative 465) LEUKOCYTE ESTERASE UA (BEAKER) Negative Negative (test code = 466) UROBILINOGEN UA (BEAKER) (test code 0.2 mg/dL 0.2-1.0 = 463) SOURCE(BEAKER) (test code = 2795) [employer] Adjuster ID - [auto][employer] Adjuster ID - techOperator ID - techOsmolality, serum 2019-11-03 17:13:00 Test Item Value Reference Range Interpretation Comments Osmolality Serum (test code = 2692-2) 286 275- 295 mOsm/kg Lab Interpretation (test code = Normal 31630-9) [facility] CenterOSMOLALITY, [id number] 17:13:00 Test Item Value Reference Range Interpretation Comments OSMOLALITY, SERUM (BEAKER) (test 286 mOsm/kg 275-295 code = 615) POTASSIUM-STAT [id number] 12:57:00 Test Item Value Reference Range Interpretation Comments POTASSIUM (BEAKER) (test code = 5.7 meq/L 3.6-5.5 H 379) CHLORIDE, RANDOM [id number] 12:30:00 Test Item Value Reference Range Interpretation Comments CHLORIDE URINE (BEAKER) (test code 150 meq/L = 682) Reference Range: No NormalsOperator ID Laura GARCIA FCREATININE, RANDOM URINE 2019-11-03 12:30:00 Test Item Value Reference Range Interpretation Comments CREATININE URINE (BEAKER) (test 16.5 mg/dL code = 375) Reference Range: No NormalsOperator ID Laura GARCIA FPOTASSIUM, RANDOM URINE 2019-11-03 12:30:00 Test Item Value Reference Range Interpretation Comments POTASSIUM URINE (BEAKER) (test 41.5 meq/L code = 195) Reference Range: No NormalsOperator ID Laura GARCIA FSODIUM, RANDOM URINE 2019-11-03 12:30:00 Test Item Value Reference Range Interpretation Comments SODIUM URINE (BEAKER) (test code = 108 meq/L 243) Reference Range: No NormalsOperator ID Laura GARCIA FUREA NITROGEN, RANDOM URINE 2019-11-03 12:30:00 Test Item Value Reference Range Interpretation Comments UREA NITROGEN URINE (BEAKER) (test 142 mg/dL code = 538) Reference Range: No NormalsOperator ID Laura GARCIA [id number] 11:27:00 Test Item Value Reference Range Interpretation Comments POTASSIUM (BEAKER) (test code = 6.1 meq/L 3.5-5.1 HH 379) [employer] Adjuster ID Laura GARCIA FLACTIC ACID, [id number] 11:25:00 Test Item Value Reference Range Interpretation Comments LACTATE BLOOD VENOUS (2) (BEAKER) 0.44 mmol/L 0.50-2.20 L (test code = 2872) [employer] Adjuster ID Laura GARCIA FCreatine Kinase (CK)2019-11-03 10:27:00 Test Item Value Reference Range Interpretation Comments Total CK (test code = 49 U/L 29-200 2157-6) RADHA (test code = RADHA) [employer] Adjuster AQUILES GARCIA F Lab Interpretation (test Normal code = 96936-4) [facility] CenterCREATINE KINASE (CK)2019-11-03 10:27:00 Test Item Value Reference Range Interpretation Comments CREATINE KINASE TOTAL (BEAKER) (test 49 U/L 29-200 code = 380) [employer] Unit Adjuster ID - RADHA FBASIC METABOLIC [id number] 07:56:00 Test Item Value Reference Range Interpretation Comments SODIUM (BEAKER) 135 meq/L 136-145 L (test code = 381) POTASSIUM (BEAKER) 7.5 meq/L 3.5-5.1 HH (test code = 379) CHLORIDE (BEAKER) 109 meq/L 98-107 H (test code = 382) CO2 (BEAKER) (test 25 meq/L 22-29 code = 355) BLOOD UREA NITROGEN 7 mg/dL 7-21 (BEAKER) (test code = 354) CREATININE (BEAKER) 0.65 mg/dL 0.57-1.25 (test code = 358) GLUCOSE RANDOM 93 mg/dL 70-105 (BEAKER) (test code = 652) CALCIUM (BEAKER) 9.4 mg/dL 8.4-10.2 (test code = 697) EGFR (BEAKER) (test 141 mL/min/1.73 ESTIM ATED GFR IS code = 1092) sq m NOT ACCURATE CREATININE CLEARANCE IN PREDICTING GLOMERULAR FILTRATION RATE . ESTIMATED GFR I S NOT APPLICABLE FOR DIALYSIS PATIEN TS. [employer] Unit Adjuster ID - IDALIA LBASIC METABOLIC [id number] 06:19:00 Test Item Value Reference Range Interpretation Comments SODIUM (BEAKER) 136 meq/L 136-145 (test code = 381) POTASSIUM (BEAKER) 7.0 meq/L 3.5-5.1 HH Specimen slightly (test code = 379) hemolyzed CHLORIDE (BEAKER) 109 meq/L 98-107 H (test code = 382) CO2 (BEAKER) (test 25 meq/L 22-29 code = 355) BLOOD UREA NITROGEN 7 mg/dL 7-21 (BEAKER) (test code = 354) CREATININE (BEAKER) 0.68 mg/dL 0.57-1.25 Specimen slightly (test code = 358) hemolyzed GLUCOSE RANDOM 94 mg/dL 70-105 (BEAKER) (test code = 652) CALCIUM (BEAKER) 9.4 mg/dL 8.4-10.2 (test code = 697) EGFR (BEAKER) (test 134 mL/min/1.73 ESTIM ATED GFR IS code = 1092) sq m NOT ACCURATE CREATININE CLEARANCE IN PREDICTING GLOMERULAR FILTRATION RATE . ESTIMATED GFR I S NOT APPLICABLE FOR DIALYSIS PATIEN TS. [employer] ID - PISAVANNAH [id number] 06:14:00 Test Item Value Reference Range Interpretation Comments MAGNESIUM (BEAKER) 1.7 mg/dL 1.6-2.6 Specimen slightly (test code = 627) hemolyzed [employer] ID - IDALIA [id number] 06:14:00 Test Item Value Reference Range Interpretation Comments PHOSPHORUS (BEAKER) 4.3 mg/dL 2.3-4.7 Specimen slightly (test code = 604) hemolyzed [employer] ID - PISAVANNAH LCalcium, [id number] 05:26:00 Test Item Value Reference Range Interpretation Comments Calcium, Ion (test code = 1994-3) 1.24 mmol/L 1.12-1.27 pH, Blood (test code = 67698-4) 7.28 [facility] [id number] 05:26:00 Test Item Value Reference Range Interpretation Comments CALCIUM IONIZED (BEAKER) (test 1.24 mmol/L 1.12-1.27 code = 698) PH, BLOOD (BEAKER) (test code = 7.28 1810) CBC W/PLT COUNT & AUTO [id number] 05:20:00 Test Item Value Reference Range Interpretation Comments WHITE BLOOD CELL COUNT (BEAKER) 4.2 K/ L 3.5-10.5 (test code = 775) RED BLOOD CELL COUNT (BEAKER) 4.32 M/ L 4.63-6.08 L (test code = 761) HEMOGLOBIN (BEAKER) (test code = 12.6 GM/DL 13.7-17.5 L 410) HEMATOCRIT (BEAKER) (test code = 38.4 % 40.1-51.0 L 411) MEAN CORPUSCULAR VOLUME (BEAKER) 88.9 fL 79.0-92.2 (test code = 753) MEAN CORPUSCULAR HEMOGLOBIN 29.2 pg 25.7-32.2 (BEAKER) (test code = 751) MEAN CORPUSCULAR HEMOGLOBIN CONC 32.8 GM/DL 32.3-36.5 (BEAKER) (test code = 752) RED CELL DISTRIBUTION WIDTH 14.9 % 11.6-14.4 H (BEAKER) (test code = 412) PLATELET COUNT (BEAKER) (test 119 K/CU MM 150-450 L code = 756) MEAN PLATELET VOLUME (BEAKER) 9.6 fL 9.4-12.4 (test code = 754) NUCLEATED RED BLOOD CELLS 0 /100 WBC 0-0 (BEAKER) (test code = 413) NEUTROPHILS RELATIVE PERCENT 52 % (BEAKER) (test code = 429) LYMPHOCYTES RELATIVE PERCENT 36 % (BEAKER) (test code = 430) MONOCYTES RELATIVE PERCENT 8 % (BEAKER) (test code = 431) EOSINOPHILS RELATIVE PERCENT 3 % (BEAKER) (test code = 432) BASOPHILS RELATIVE PERCENT 1 % (BEAKER) (test code = 437) NEUTROPHILS ABSOLUTE COUNT 2.21 K/ L 1.78-5.38 (BEAKER) (test code = 670) LYMPHOCYTES ABSOLUTE COUNT 1.52 K/ L 1.32-3.57 (BEAKER) (test code = 414) MONOCYTES ABSOLUTE COUNT (BEAKER) 0.33 K/ L 0.30-0.82 (test code = 415) EOSINOPHILS ABSOLUTE COUNT 0.14 K/ L 0.04-0.54 (BEAKER) (test code = 416) BASOPHILS ABSOLUTE COUNT (BEAKER) 0.03 K/ L 0.01-0.08 (test code = 417) IMMATURE GRANULOCYTES-RELATIVE 0 % 0-1 PERCENT (BEAKER) (test code = 2801) BASIC METABOLIC [id number] 18:22:00 Test Item Value Reference Range Interpretation Comments SODIUM (BEAKER) 133 meq/L 136-145 L (test code = 381) POTASSIUM (BEAKER) 6.6 meq/L 3.5-5.1 HH Specimen moderately (test code = 379) hemolyzed CHLORIDE (BEAKER) 108 meq/L 98-107 H (test code = 382) CO2 (BEAKER) (test 17 meq/L 22-29 L code = 355) BLOOD UREA NITROGEN 7 mg/dL 7-21 (BEAKER) (test code = 354) CREATININE (BEAKER) 0.73 mg/dL 0.57-1.25 Specimen moderately (test code = 358) hemolyzed GLUCOSE RANDOM 89 mg/dL 70-105 (BEAKER) (test code = 652) CALCIUM (BEAKER) 9.3 mg/dL 8.4-10.2 (test code = 697) EGFR (BEAKER) (test 124 mL/min/1.73 ESTIM ATED GFR IS code = 1092) sq m NOT ACCURATE CREATININE CLEARANCE IN PREDICTING GLOMERULAR FILTRATION RATE . ESTIMATED GFR I S NOT APPLICABLE FOR DIALYSIS PATIEN TS. [employer] Unit Adjuster ID - MIGUELOCT-GLUCOSE [id number] 15:18:00 Test Item Value Reference Range Interpretation Comments POC-GLUCOSE METER 102 mg/dL 70-110 : TESTED A T [facility] 6720 (BEAKER) (test code [facility], = 1538) [address]: [employer] Unit Adjuster/Techni daya ID = [id number] for ARLEEN LI BASIC METABOLIC [id number] 13:13:00 Test Item Value Reference Range Interpretation Comments SODIUM (BEAKER) 136 meq/L 136-145 (test code = 381) POTASSIUM (BEAKER) 6.8 meq/L 3.5-5.1 HH (test code = 379) CHLORIDE (BEAKER) 112 meq/L 98-107 H (test code = 382) CO2 (BEAKER) (test 20 meq/L 22-29 L code = 355) BLOOD UREA NITROGEN 8 mg/dL 7-21 (BEAKER) (test code = 354) CREATININE (BEAKER) 0.68 mg/dL 0.57-1.25 (test code = 358) GLUCOSE RANDOM 114 mg/dL 70-105 H (BEAKER) (test code = 652) CALCIUM (BEAKER) 9.2 mg/dL 8.4-10.2 (test code = 697) EGFR (BEAKER) (test 134 mL/min/1.73 ESTIM ATED GFR IS code = 1092) sq m NOT ACCURATE CREATININE CLEARANCE IN PREDICTING GLOMERULAR FILTRATION RATE . ESTIMATED GFR I S NOT APPLICABLE FOR DIALYSIS PATIEN TS. [employer] Unit Adjuster ID - RAJ WCOMPREHENSIVE METABOLIC [id number] 07:07:00 Test Item Value Reference Range Interpretation Comments TOTAL PROTEIN 6.2 gm/dL 6.0-8.3 (BEAKER) (test code = 770) ALBUMIN (BEAKER) 3.9 g/dL 3.5-5.0 (test code = 1145) ALKALINE PHOSPHATASE 77 U/L 40-150 (BEAKER) (test code = 346) BILIRUBIN TOTAL 0.8 mg/dL 0.2-1.2 (BEAKER) (test code = 377) SODIUM (BEAKER) (test 138 meq/L 136-145 code = 381) POTASSIUM (BEAKER) 7.0 meq/L 3.5-5.1 HH No hemoly sis (test code = 379) CHLORIDE (BEAKER) 112 meq/L 98-107 H (test code = 382) CO2 (BEAKER) (test 25 meq/L 22-29 code = 355) BLOOD UREA NITROGEN 9 mg/dL 7-21 (BEAKER) (test code = 354) CREATININE (BEAKER) 0.64 mg/dL 0.57-1.25 (test code = 358) GLUCOSE RANDOM 91 mg/dL 70-105 (BEAKER) (test code = 652) CALCIUM (BEAKER) 8.8 mg/dL 8.4-10.2 (test code = 697) AST (SGOT) (BEAKER) 23 U/L 5-34 (test code = 353) ALT (SGPT) (BEAKER) 14 U/L 6-55 (test code = 347) EGFR (BEAKER) (test 144 ESTIMATE D GFR IS code = 1092) mL/min/1.73 sq NOT ACCURA TE m CREATININE CLEARANCE IN PREDICTING GLOMERULAR FILTRATION RATE . ESTIMATED GFR I S NOT APPLICABLE FOR DIALYSIS PATIEN TS. [employer] Unit Adjuster ID - PIAYA LCALCIUM, [id number] 06:43:00 Test Item Value Reference Range Interpretation Comments CALCIUM IONIZED (BEAKER) (test 1.22 mmol/L 1.12-1.27 code = 698) PH, BLOOD (BEAKER) (test code = 7.36 1810) [id number] 05:29:00 Test Item Value Reference Range Interpretation Comments MAGNESIUM (BEAKER) 1.7 mg/dL 1.6-2.6 Specimen slightly (test code = 627) hemolyzed [employer] Adjuster ID - PIAYA [id number] 05:29:00 Test Item Value Reference Range Interpretation Comments PHOSPHORUS (BEAKER) 3.7 mg/dL 2.3-4.7 Specimen slightly (test code = 604) hemolyzed [employer] Adjuster ID - PIAYA LCBC W/PLT COUNT & AUTO [id number] 04:47:00 Test Item Value Reference Range Interpretation Comments WHITE BLOOD CELL COUNT (BEAKER) 3.2 K/ L 3.5-10.5 L (test code = 775) RED BLOOD CELL COUNT (BEAKER) 4.17 M/ L 4.63-6.08 L (test code = 761) HEMOGLOBIN (BEAKER) (test code = 12.4 GM/DL 13.7-17.5 L 410) HEMATOCRIT (BEAKER) (test code = 36.5 % 40.1-51.0 L 411) MEAN CORPUSCULAR VOLUME (BEAKER) 87.5 fL 79.0-92.2 (test code = 753) MEAN CORPUSCULAR HEMOGLOBIN 29.7 pg 25.7-32.2 (BEAKER) (test code = 751) MEAN CORPUSCULAR HEMOGLOBIN CONC 34.0 GM/DL 32.3-36.5 (BEAKER) (test code = 752) RED CELL DISTRIBUTION WIDTH 15.0 % 11.6-14.4 H (BEAKER) (test code = 412) PLATELET COUNT (BEAKER) (test 123 K/CU MM 150-450 L code = 756) MEAN PLATELET VOLUME (BEAKER) 9.2 fL 9.4-12.4 L (test code = 754) NUCLEATED RED BLOOD CELLS 0 /100 WBC 0-0 (BEAKER) (test code = 413) NEUTROPHILS RELATIVE PERCENT 46 % (BEAKER) (test code = 429) LYMPHOCYTES RELATIVE PERCENT 41 % (BEAKER) (test code = 430) MONOCYTES RELATIVE PERCENT 10 % (BEAKER) (test code = 431) EOSINOPHILS RELATIVE PERCENT 3 % (BEAKER) (test code = 432) BASOPHILS RELATIVE PERCENT 1 % (BEAKER) (test code = 437) NEUTROPHILS ABSOLUTE COUNT 1.45 K/ L 1.78-5.38 L (BEAKER) (test code = 670) LYMPHOCYTES ABSOLUTE COUNT 1.30 K/ L 1.32-3.57 L (BEAKER) (test code = 414) MONOCYTES ABSOLUTE COUNT (BEAKER) 0.31 K/ L 0.30-0.82 (test code = 415) EOSINOPHILS ABSOLUTE COUNT 0.08 K/ L 0.04-0.54 (BEAKER) (test code = 416) BASOPHILS ABSOLUTE COUNT (BEAKER) 0.03 K/ L 0.01-0.08 (test code = 417) IMMATURE GRANULOCYTES-RELATIVE 0 % 0-1 PERCENT (BEAKER) (test code = 2801) MR, ABDOMEN, [id number] 17:44:00FINAL REPORT TECHNIQUE: MRI of the abdomen WITHOUT and WITH intravenous contrast. INDICATION: Pancreatic cyst/pseudo cyst, follow up. COMPARISON: MRCP from 12/12/2018. CT from 10/21/2019 FINDINGS: LOWER THORAX: Unremarkable. LIVER: No hepatic signal abnormality. A focus of arterial phase hyperenhancement in segment V measures 0.5 on axial arterial phase image 51. Additional focusof arterial phase hyperenhancement in segment V measures 0.6 cm on arterial phase image 36 and is not seen on other pulse sequences. These are not seen on other pulse sequences and are most likely perfusional.BILIARY: The gallbladder is mildly distended. The common bile duct diameter is 0.7 cm.SPLEEN:13.9 cm splenomegaly.PANCREAS: No focal masses or ductal dilatation. The cystic lesion in the pancreatic tail has resolved. In place of the cyst, there is a punctate focus of hyperintense T1- weighted signal, likely incident per routine or hemorrhage. ADRENALS: No adrenal nodules.KIDNEYS/URETERS: No hydronephrosis or solid mass lesions. PERITONEUM/RETROPERITONEUM: No free fluid.LYMPH NODES: No lymphade nopathy.VESSELS: The splenic vein is diminutive, possibly previously thrombosed and recanalized. There are multiple collaterals in the upper abdomen. 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 The common hepatic artery is replaced from the superior mesenteric artery.GI TRACT: No distention or wall thickening. Small, sliding hiatal hernia. BONES AND SOFT TISSUES: Unremarkable. IMPRESSION: 1.There is mild distention of the common bile duct and gallbladder from an indeterminate cause. A distal common bile duct stricture from prior episodes of pancreatitis is possible. 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 3.A cystic lesion in the pancreatic tail has resolved and was a pseudocyst. Signed: Goyo Coleman MDReport Verified Date/Time: 11/01/2019 17:44:07 Reading Location: [facility] B1 C013Y CT Body Reading Room COMPREHENSIVE METABOLIC [id number] 07:36:00 Test Item Value Reference Range Interpretation Comments TOTAL PROTEIN 7.1 gm/dL 6.0-8.3 (BEAKER) (test code = 770) ALBUMIN (BEAKER) 4.3 g/dL 3.5-5.0 (test code = 1145) ALKALINE PHOSPHATASE 86 U/L 40-150 (BEAKER) (test code = 346) BILIRUBIN TOTAL 1.1 mg/dL 0.2-1.2 (BEAKER) (test code = 377) SODIUM (BEAKER) (test 137 meq/L 136-145 code = 381) POTASSIUM (BEAKER) 4.0 meq/L 3.5-5.1 (test code = 379) CHLORIDE (BEAKER) 103 meq/L 98-107 (test code = 382) CO2 (BEAKER) (test 26 meq/L 22-29 code = 355) BLOOD UREA NITROGEN 10 mg/dL 7-21 (BEAKER) (test code = 354) CREATININE (BEAKER) 0.66 mg/dL 0.57-1.25 (test code = 358) GLUCOSE RANDOM 82 mg/dL 70-105 (BEAKER) (test code = 652) CALCIUM (BEAKER) 8.6 mg/dL 8.4-10.2 (test code = 697) AST (SGOT) (BEAKER) 21 U/L 5-34 (test code = 353) ALT (SGPT) (BEAKER) 12 U/L 6-55 (test code = 347) EGFR (BEAKER) (test 139 ESTIMATE D GFR IS code = 1092) mL/min/1.73 sq NOT ACCURA TE m CREATININE CLEARANCE IN PREDICTING GLOMERULAR FILTRATION RATE . ESTIMATED GFR I S NOT APPLICABLE FOR DIALYSIS PATIEN TS. [employer] Unit Adjuster ID - LMOperator ID - PIAYA [id number] 07:20:00 Test Item Value Reference Range Interpretation Comments PHOSPHORUS (BEAKER) (test code = 4.4 mg/dL 2.3-4.7 604) [employer] Unit Adjuster ID - [id number] 07:20:00 Test Item Value Reference Range Interpretation Comments MAGNESIUM (BEAKER) (test code = 1.6 mg/dL 1.6-2.6 627) [employer] Unit Adjuster ID - LMCALCIUM, [id number] 06:22:00 Test Item Value Reference Range Interpretation Comments CALCIUM IONIZED (BEAKER) (test 1.08 mmol/L 1.12-1.27 L code = 698) PH, BLOOD (BEAKER) (test code = 7.35 1810) CBC W/PLT COUNT & AUTO [id number] 05:59:00 Test Item Value Reference Range Interpretation Comments WHITE BLOOD CELL COUNT (BEAKER) 3.3 K/ L 3.5-10.5 L (test code = 775) RED BLOOD CELL COUNT (BEAKER) 4.63 M/ L 4.63-6.08 (test code = 761) HEMOGLOBIN (BEAKER) (test code = 13.9 GM/DL 13.7-17.5 410) HEMATOCRIT (BEAKER) (test code = 40.4 % 40.1-51.0 411) MEAN CORPUSCULAR VOLUME (BEAKER) 87.3 fL 79.0-92.2 (test code = 753) MEAN CORPUSCULAR HEMOGLOBIN 30.0 pg 25.7-32.2 (BEAKER) (test code = 751) MEAN CORPUSCULAR HEMOGLOBIN CONC 34.4 GM/DL 32.3-36.5 (BEAKER) (test code = 752) RED CELL DISTRIBUTION WIDTH 15.1 % 11.6-14.4 H (BEAKER) (test code = 412) PLATELET COUNT (BEAKER) (test 129 K/CU MM 150-450 L code = 756) MEAN PLATELET VOLUME (BEAKER) 9.2 fL 9.4-12.4 L (test code = 754) NUCLEATED RED BLOOD CELLS 0 /100 WBC 0-0 (BEAKER) (test code = 413) NEUTROPHILS RELATIVE PERCENT 43 % (BEAKER) (test code = 429) LYMPHOCYTES RELATIVE PERCENT 44 % (BEAKER) (test code = 430) MONOCYTES RELATIVE PERCENT 9 % (BEAKER) (test code = 431) EOSINOPHILS RELATIVE PERCENT 3 % (BEAKER) (test code = 432) BASOPHILS RELATIVE PERCENT 1 % (BEAKER) (test code = 437) NEUTROPHILS ABSOLUTE COUNT 1.41 K/ L 1.78-5.38 L (BEAKER) (test code = 670) LYMPHOCYTES ABSOLUTE COUNT 1.44 K/ L 1.32-3.57 (BEAKER) (test code = 414) MONOCYTES ABSOLUTE COUNT (BEAKER) 0.30 K/ L 0.30-0.82 (test code = 415) EOSINOPHILS ABSOLUTE COUNT 0.09 K/ L 0.04-0.54 (BEAKER) (test code = 416) BASOPHILS ABSOLUTE COUNT (BEAKER) 0.02 K/ L 0.01-0.08 (test code = 417) IMMATURE GRANULOCYTES-RELATIVE 0 % 0-1 PERCENT (BEAKER) (test code = 2801) Hemoglobin [id number] 07:50:00 Test Item Value Reference Range Interpretation Comments Hemoglobin A1C (test code = 4548-4) 5.1 % 4.3-6.1 Lab Interpretation (test code = Normal 02928-7) [facility] [id number] 07:50:00 Test Item Value Reference Range Interpretation Comments HEMOGLOBIN A1C (BEAKER) (test code = 5.1 % 4.3-6.1 368) Vitamin B12 and [id number] 06:41:00 Test Item Value Reference Range Interpretation Comments Vitamin B12 (test code = 518 pg/mL 702-664 6041-9) Folate (test code = 30.00 ng/mL >=7.00 2284-8) RADHA (test code = RADHA) [employer] Adjuster ID - JEFFRY W Lab Interpretation (test Normal code = 02879-5) [facility] B12 AND [id number] 06:41:00 Test Item Value Reference Range Interpretation Comments VITAMIN B12 (BEAKER) (test code = 518 pg/mL 213-816 774) FOLATE (BEAKER) (test code = 362) 30.00 ng/mL >=7.00 [employer] Adjuster ID - JEFFRY WCBC W/PLT COUNT & AUTO [id number] 05:40:00 Test Item Value Reference Range Interpretation Comments WHITE BLOOD CELL COUNT 4.2 K/ L 3.5-10.5 (BEAKER) (test code = 775) RED BLOOD CELL COUNT 4.24 M/ L 4.63-6.08 L (BEAKER) (test code = 761) HEMOGLOBIN (BEAKER) 12.7 GM/DL 13.7-17.5 L Discorda nt HGB (test code = 410) result com pared to previous result ; clinical correl ation required. HEMATOCRIT (BEAKER) 36.3 % 40.1-51.0 L (test code = 411) MEAN CORPUSCULAR 85.6 fL 79.0-92.2 VOLUME (BEAKER) (test code = 753) MEAN CORPUSCULAR 30.0 pg 25.7-32.2 HEMOGLOBIN (BEAKER) (test code = 751) MEAN CORPUSCULAR 35.0 GM/DL 32.3-36.5 HEMOGLOBIN CONC (BEAKER) (test code = 752) RED CELL DISTRIBUTION 15.1 % 11.6-14.4 H WIDTH (BEAKER) (test code = 412) PLATELET COUNT 125 K/CU MM 150-[address] T (BEAKER) (test code = result compared to 756) previous result ; clinical correl ation required. MEAN PLATELET VOLUME 9.3 fL 9.4-12.4 L (BEAKER) (test code = 754) NUCLEATED RED BLOOD 0 /100 WBC 0-0 CELLS (BEAKER) (test code = 413) NEUTROPHILS RELATIVE 44 % PERCENT (BEAKER) (test code = 429) LYMPHOCYTES RELATIVE 43 % PERCENT (BEAKER) (test code = 430) MONOCYTES RELATIVE 10 % PERCENT (BEAKER) (test code = 431) EOSINOPHILS RELATIVE 1 % PERCENT (BEAKER) (test code = 432) BASOPHILS RELATIVE 1 % PERCENT (BEAKER) (test code = 437) NEUTROPHILS ABSOLUTE 1.85 K/ L 1.78-5.38 COUNT (BEAKER) (test code = 670) LYMPHOCYTES ABSOLUTE 1.80 K/ L 1.32-3.57 COUNT (BEAKER) (test code = 414) MONOCYTES ABSOLUTE 0.42 K/ L 0.30-0.82 COUNT (BEAKER) (test code = 415) EOSINOPHILS ABSOLUTE 0.06 K/ L 0.04-0.54 COUNT (BEAKER) (test code = 416) BASOPHILS ABSOLUTE 0.04 K/ L 0.01-0.08 COUNT (BEAKER) (test code = 417) IMMATURE 0 % 0-1 GRANULOCYTES-RELATIVE PERCENT (BEAKER) (test code = 2801) Lipid [id number] 05:18:00 Test Item Value Reference Range Interpretation Comments Triglycerides (test 96 mg/dL code = 2571-8) Cholesterol (test code 158 mg/dL = 2093-3) HDL (test code = 67 mg/dL 2085-9) LDL Calculated (test 72 mg/dL code = 46102-7) RADHA (test code = RADHA) Triglyceride Reference Range: Low Risk <150 Borderline 150-199 High Risk 200-499 Very High Risk >=500 Cholesterol Reference Range: Low Risk <200 Borderline 200-239 High Risk >240 HDL Cholesterol Reference Range: Low Risk >=60 High Risk <40 LDL Cholesterol Reference Range: Optimal <100 Near Optimal 100-129 Borderline 130-159 High 160-189 Very High >=190 [employer] Adjuster ID - JEFFRY Aguilera [facility] [id number] 05:18:00 Test Item Value Reference Range Interpretation Comments PHOSPHORUS (BEAKER) (test code = 3.1 mg/dL 2.3-4.7 604) [employer] Unit Adjuster ID - JEFFRY [id number] 05:18:00 Test Item Value Reference Range Interpretation Comments MAGNESIUM (BEAKER) (test code = 1.4 mg/dL 1.6-2.6 L 627) [employer] Unit Adjuster ID - JEFFRY WCOMPREHENSIVE METABOLIC [id number] 05:18:00 Test Item Value Reference Range Interpretation Comments TOTAL PROTEIN 6.2 gm/dL 6.0-8.3 (BEAKER) (test code = 770) ALBUMIN (BEAKER) 3.9 g/dL 3.5-5.0 (test code = 1145) ALKALINE PHOSPHATASE 78 U/L 40-150 (BEAKER) (test code = 346) BILIRUBIN TOTAL 1.7 mg/dL 0.2-1.2 H (BEAKER) (test code = 377) SODIUM (BEAKER) (test 138 meq/L 136-145 code = 381) POTASSIUM (BEAKER) 4.1 meq/L 3.5-5.1 (test code = 379) CHLORIDE (BEAKER) 103 meq/L 98-107 (test code = 382) CO2 (BEAKER) (test 28 meq/L 22-29 code = 355) BLOOD UREA NITROGEN 12 mg/dL 7-21 (BEAKER) (test code = 354) CREATININE (BEAKER) 0.63 mg/dL 0.57-1.25 (test code = 358) GLUCOSE RANDOM 82 mg/dL 70-105 (BEAKER) (test code = 652) CALCIUM (BEAKER) 8.9 mg/dL 8.4-10.2 (test code = 697) AST (SGOT) (BEAKER) 19 U/L 5-34 (test code = 353) ALT (SGPT) (BEAKER) 12 U/L 6-55 (test code = 347) EGFR (BEAKER) (test 147 ESTIMATE D GFR IS code = 1092) mL/min/1.73 sq NOT ACCURA TE m CREATININE CLEARANCE IN PREDICTING GLOMERULAR FILTRATION RATE . ESTIMATED GFR I S NOT APPLICABLE FOR DIALYSIS PATIEN TS. [employer] Unit Adjuster ID - JEFFRY WLIPID [id number] 05:18:00 Test Item Value Reference Range Interpretation Comments TRIGLYCERIDES (BEAKER) (test code = 96 mg/dL 540) CHOLESTEROL (BEAKER) (test code = 158 mg/dL 631) HDL CHOLESTEROL (BEAKER) (test code 67 mg/dL = 976) LDL CHOLESTEROL CALCULATED (BEAKER) 72 mg/dL (test code = 633) Triglyceride Reference Range: Low Risk <150 Borderline 150-199 High Risk 200-499 Very High Risk >=500Cholesterol Reference Range: Low Risk <200 Borderline 200-239 High Risk >240HDL Cholesterol Reference Range: Low Risk >=60 High Risk <40LDL Cholesterol Reference Range: Optimal <100 Near Optimal 100-129 Borderline 130-159 High 160-189 Very High >=190 [employer] Adjuster ID - JEFFRYWLACTIC ACID, [id number] 04:53:00 Test Item Value Reference Range Interpretation Comments LACTATE BLOOD VENOUS (2) (BEAKER) 0.72 mmol/L 0.50-2.20 (test code = 2872) [employer] Unit Adjuster ID - DBCALCIUM, [id number] 04:49:00 Test Item Value Reference Range Interpretation Comments CALCIUM IONIZED (BEAKER) (test 1.11 mmol/L 1.12-1.27 L code = 698) PH, BLOOD (BEAKER) (test code = 7.46 1810) [id number] 18:04:00 Test Item Value Reference Range Interpretation Comments PROCALCITONIN (BEAKER) (test code = < ng/mL <0.05 3036) SEPSIS RISK (ng/mL)Low: 0.05-0.50Intermediate: 0.51-2.00High: >=2.01LACTIC ACID, [id number] 17:41:00 Test Item Value Reference Range Interpretation Comments LACTATE BLOOD VENOUS (2) (BEAKER) 5.14 mmol/L 0.50-2.20 HH (test code = 2872) [employer] Unit Adjuster ID - ANA MLACTIC ACID, [id number] 15:19:00 Test Item Value Reference Range Interpretation Comments LACTATE BLOOD VENOUS 6.66 mmol/L 0.50-2.20 HH Specime n slightly (2) (BEAKER) (test hemolyzed code = 2872) [employer] Unit Adjuster ID - ANA MTROPONIN [id number] 15:14:00 Test Item Value Reference Range Interpretation Comments TROPONIN I (BEAKER) (test code = 0.01 ng/mL 0.00-0.03 397) Troponin I (TnI) levels must be interpreted [...] failure, acidosis, acute neurological disease, and persistent tachyarrhythmia.[employer] Adjuster ID - ANA MCGILLNIN [id number] 14:25:00 Test Item Value Reference Range Interpretation Comments TROPONIN I (BEAKER) (test code = [...] failure, acidosis, acute neurological disease, and persistent tachyarrhythmia.[employer] Unit Adjuster ID - NTPCT, CTA ABDOMEN 2019-10-30 12:49:00Reason for exam:->PANCREATITISReason for exam:->RECTAL BLEEDINGWhat is the patient's sedation requirement?->No SedationFINAL REPORT ABDOMINAL AND PELVIS CT DATED 10/30/2019 CLINICAL INFORMATION: PANCREATITISRECTAL BLEEDINGSMV thromobis, on xarelto, rectal bleeding TECHNIQUE: Axial images of theabdomen and pelvis were obtained from diaphragm to the pubic symphysis with and without intravenous contrast. This exam was performed according to our departmental dose-optimization program, which includes automated exposure control, adjustment of the mA and/or kV according to patient size and/or useof interactive reconstruction technique. COMMENT: Liver and spleen are normal in size without focal abnormality. Gallbladder is contracted. No gallstone or biliary dilatation is noted. Pancreas and adrenals are unremarkable. Both kidneys are normal in size and functioning. 2 small subcentimeter stones are seen in the right kidney without hydronephrosis measuring up to 2 mm in size. The small and large bowel are suboptimally evaluated secondary to motion artifact. No active bleeding is identifiedin the GI tract. Abdominal aorta is normal in caliber. Prostate is normal in size. The urinary bladder is minimally distended. No mass, adenopathy or ascites is present. IMPRESSION: No active GI bleeding identified. Signed: Carrington Garcia MDReport Verified Date/Time: 10/30/2019 12:49:58 Reading Location: [address] Consult Reading Room CT/CTA abdomen & [id number] 12:49:00 Interface, External Ris In - 10/30/2019 12:52 PM CDTFINAL REPORT ABDOMINAL AND PELVIS CT DATED 10/30/2019 CLINICAL INFORMATION: PANCREATITISRECTAL BLEEDINGSMV thromobis, on xarelto, rectal bleeding TECHNIQUE: Axial images of the abdomen and pelvis were obtained from diaphragm to the pubic symphysis with and without intravenous contrast. This exam was performed [...] kidneys are normal in size and functioning. 2 small subcentimeter stones are seen in the right kidney without hydronephrosis measuring up to 2 mm in size. The small and large bowel are suboptimally evaluated secondary to motion artifact. No active bleeding is identified in the GI tract. Abdominal aorta is normal in caliber. Prostate is normal in size. The urinary bladder is minimally distended. No mass, adenopathy orascites is present. IMPRESSION: No active GI bleeding identified. Signed: Carrington Garcia MDReport Verified Date/Time: 10/30/2019 12:49:58 Reading Location: [facility] B1 [id number] Consult [id number] 10:52:00 Test Item Value Reference Range Interpretation Comments TROPONIN I (BEAKER) (test code = [...] failure, acidosis, acute neurological disease, and persistent tachyarrhythmia.[employer] Adjuster ID - ANA [id number] 10:46:00 Test Item Value Reference Range Interpretation Comments LIPASE (BEAKER) (test code = 749) 20 U/L 8-78 [employer] Adjuster ID - ANA MBASIC METABOLIC [id number] 10:46:00 Test Item Value Reference Range Interpretation Comments SODIUM (BEAKER) 144 meq/L 136-145 (test code = 381) POTASSIUM (BEAKER) 4.3 meq/L 3.5-5.1 Specimen moderately (test code = 379) hemolyzed CHLORIDE (BEAKER) 107 meq/L 98-107 (test code = 382) CO2 (BEAKER) (test 18 meq/L 22-29 L code = 355) BLOOD UREA NITROGEN 18 mg/dL 7-21 (BEAKER) (test code = 354) CREATININE (BEAKER) 0.76 mg/dL 0.57-1.25 Specimen moderately (test code = 358) hemolyzed GLUCOSE RANDOM 81 mg/dL 70-105 (BEAKER) (test code = 652) CALCIUM (BEAKER) 9.9 mg/dL 8.4-10.2 (test code = 697) EGFR (BEAKER) (test 118 mL/min/1.73 ESTIM ATED GFR IS code = 1092) sq m NOT ACCURATE CREATININE CLEARANCE IN PREDICTING GLOMERULAR FILTRATION RATE . ESTIMATED GFR I S NOT APPLICABLE FOR DIALYSIS PATIEN TS. [employer] Adjuster ID - ANA MHEPATIC FUNCTION [id number] 10:46:00 Test Item Value Reference Range Interpretation Comments TOTAL PROTEIN (BEAKER) 9.3 gm/dL 6.0-8.3 H Speci men moderately (test code = 770) hemolyzed ALBUMIN (BEAKER) (test 5.3 g/dL 3.5-5.0 H Speci men moderately code = 1145) hemolyzed BILIRUBIN TOTAL 0.7 mg/dL 0.2-1.2 Specimen mod erately (BEAKER) (test code = hemoly zed 377) BILIRUBIN DIRECT 0.3 mg/dL 0.1-0.5 Specimen mo derately (BEAKER) (test code = hemoly zed 706) ALKALINE PHOSPHATASE 115 U/L 40-150 (BEAKER) (test code = 346) AST (SGOT) (BEAKER) 32 U/L 5-34 Specimen moderately (test code = 353) hemolyzed ALT (SGPT) (BEAKER) 20 U/L 6-55 Specimen moderately (test code = 347) hemolyzed [employer] Adjuster ID - ANA MLACTIC ACID, [id number] 10:43:00 Test Item Value Reference Range Interpretation Comments LACTATE BLOOD VENOUS 5.76 mmol/L 0.50-2.20 HH Specime n slightly (2) (BEAKER) (test hemolyzed code = 2872) [employer] Adjuster ID - ANA [id number] 10:39:00 Test Item Value Reference Range Interpretation Comments PROTIME (BEAKER) (test code = 13.3 seconds 11.9-14.2 759) INR (BEAKER) (test code = 370) 1.0 <=5.9 PARTIAL THROMBOPLASTIN TIME 22.8 seconds 22.5-36.0 (BEAKER) (test code = 760) Effective 12/11/2018: PT Reference Range ChangeNew: 11.9-14.2 Previous: 11.7- 14.7RECOMMENDED COUMADIN/WARFARIN INR THERAPY RANGESSTANDARD DOSE: 2.0-3.0 Includes: PROPHYLAXIS for venous thrombosis, systemic embolization; TREATMENT for venous thrombosis and/or pulmonary embolus.HIGH RISK: Target INR is2.5-3.5 for patients wiht mechanical heart valves.CBC W/PLT COUNT & AUTO [id number] 10:39:00 Test Item Value Reference Range Interpretation Comments WHITE BLOOD CELL COUNT (BEAKER) 7.7 K/ L 3.5-10.5 (test code = 775) RED BLOOD CELL COUNT (BEAKER) 6.04 M/ L 4.63-6.08 (test code = 761) HEMOGLOBIN (BEAKER) (test code = 17.7 GM/DL 13.7-17.5 H 410) HEMATOCRIT (BEAKER) (test code = 51.3 % 40.1-51.0 H 411) MEAN CORPUSCULAR VOLUME (BEAKER) 84.9 fL 79.0-92.2 (test code = 753) MEAN CORPUSCULAR HEMOGLOBIN 29.3 pg 25.7-32.2 (BEAKER) (test code = 751) MEAN CORPUSCULAR HEMOGLOBIN CONC 34.5 GM/DL 32.3-36.5 (BEAKER) (test code = 752) RED CELL DISTRIBUTION WIDTH 16.8 % 11.6-14.4 H (BEAKER) (test code = 412) PLATELET COUNT (BEAKER) (test 306 K/CU MM 150-450 code = 756) MEAN PLATELET VOLUME (BEAKER) 9.0 fL 9.4-12.4 L (test code = 754) NUCLEATED RED BLOOD CELLS 0 /100 WBC 0-0 (BEAKER) (test code = 413) NEUTROPHILS RELATIVE PERCENT 63 % (BEAKER) (test code = 429) LYMPHOCYTES RELATIVE PERCENT 31 % (BEAKER) (test code = 430) MONOCYTES RELATIVE PERCENT 5 % (BEAKER) (test code = 431) EOSINOPHILS RELATIVE PERCENT 0 % (BEAKER) (test code = 432) BASOPHILS RELATIVE PERCENT 1 % (BEAKER) (test code = 437) NEUTROPHILS ABSOLUTE COUNT 4.87 K/ L 1.78-5.38 (BEAKER) (test code = 670) LYMPHOCYTES ABSOLUTE COUNT 2.35 K/ L 1.32-3.57 (BEAKER) (test code = 414) MONOCYTES ABSOLUTE COUNT (BEAKER) 0.36 K/ L 0.30-0.82 (test code = 415) EOSINOPHILS ABSOLUTE COUNT 0.02 K/ L 0.04-0.54 L (BEAKER) (test code = 416) BASOPHILS ABSOLUTE COUNT (BEAKER) 0.05 K/ L 0.01-0.08 (test code = 417) IMMATURE GRANULOCYTES-RELATIVE 1 % 0-1 PERCENT (BEAKER) (test code = 2801) BASIC METABOLIC [id number] 05:19:00 Test Item Value Reference Range Interpretation Comments SODIUM (BEAKER) 141 meq/L 136-145 (test code = 381) POTASSIUM (BEAKER) 3.8 meq/L 3.5-5.1 (test code = 379) CHLORIDE (BEAKER) 110 meq/L 98-107 H (test code = 382) CO2 (BEAKER) (test 24 meq/L 22-29 code = 355) BLOOD UREA NITROGEN 8 mg/dL 7-21 (BEAKER) (test code = 354) CREATININE (BEAKER) 0.70 mg/dL 0.57-1.25 (test code = 358) GLUCOSE RANDOM 92 mg/dL 70-105 (BEAKER) (test code = 652) CALCIUM (BEAKER) 8.3 mg/dL 8.4-10.2 L (test code = 697) EGFR (BEAKER) (test 130 mL/min/1.73 ESTIM ATED GFR IS code = 1092) sq m NOT ACCURATE CREATININE CLEARANCE IN PREDICTING GLOMERULAR FILTRATION RATE . ESTIMATED GFR I S NOT APPLICABLE FOR DIALYSIS PATIEN TS. [employer] Adjuster ID - JEFFRY WCBC W/PLT COUNT & AUTO [id number] 05:08:00 Test Item Value Reference Range Interpretation Comments WHITE BLOOD CELL COUNT (BEAKER) 3.3 K/ L 3.5-10.5 L (test code = 775) RED BLOOD CELL COUNT (BEAKER) 3.92 M/ L 4.63-6.08 L (test code = 761) HEMOGLOBIN (BEAKER) (test code = 11.3 GM/DL 13.7-17.5 L 410) HEMATOCRIT (BEAKER) (test code = 32.9 % 40.1-51.0 L 411) MEAN CORPUSCULAR VOLUME (BEAKER) 83.9 fL 79.0-92.2 (test code = 753) MEAN CORPUSCULAR HEMOGLOBIN 28.8 pg 25.7-32.2 (BEAKER) (test code = 751) MEAN CORPUSCULAR HEMOGLOBIN CONC 34.3 GM/DL 32.3-36.5 (BEAKER) (test code = 752) RED CELL DISTRIBUTION WIDTH 14.5 % 11.6-14.4 H (BEAKER) (test code = 412) PLATELET COUNT (BEAKER) (test 106 K/CU MM 150-450 L code = 756) MEAN PLATELET VOLUME (BEAKER) 9.8 fL 9.4-12.4 (test code = 754) NUCLEATED RED BLOOD CELLS 0 /100 WBC 0-0 (BEAKER) (test code = 413) NEUTROPHILS RELATIVE PERCENT 51 % (BEAKER) (test code = 429) LYMPHOCYTES RELATIVE PERCENT 38 % (BEAKER) (test code = 430) MONOCYTES RELATIVE PERCENT 8 % (BEAKER) (test code = 431) EOSINOPHILS RELATIVE PERCENT 2 % (BEAKER) (test code = 432) BASOPHILS RELATIVE PERCENT 1 % (BEAKER) (test code = 437) NEUTROPHILS ABSOLUTE COUNT 1.70 K/ L 1.78-5.38 L (BEAKER) (test code = 670) LYMPHOCYTES ABSOLUTE COUNT 1.26 K/ L 1.32-3.57 L (BEAKER) (test code = 414) MONOCYTES ABSOLUTE COUNT (BEAKER) 0.27 K/ L 0.30-0.82 L (test code = 415) EOSINOPHILS ABSOLUTE COUNT 0.07 K/ L 0.04-0.54 (BEAKER) (test code = 416) BASOPHILS ABSOLUTE COUNT (BEAKER) 0.02 K/ L 0.01-0.08 (test code = 417) IMMATURE GRANULOCYTES-RELATIVE 0 % 0-1 PERCENT (BEAKER) (test code = 2801) BASIC METABOLIC [id number] 04:26:00 Test Item Value Reference Range Interpretation Comments SODIUM (BEAKER) 142 meq/L 136-145 (test code = 381) POTASSIUM (BEAKER) 3.7 meq/L 3.5-5.1 (test code = 379) CHLORIDE (BEAKER) 106 meq/L 98-107 (test code = 382) CO2 (BEAKER) (test 27 meq/L 22-29 code = 355) BLOOD UREA NITROGEN 5 mg/dL 7-21 L (BEAKER) (test code = 354) CREATININE (BEAKER) 0.71 mg/dL 0.57-1.25 (test code = 358) GLUCOSE RANDOM 89 mg/dL 70-105 (BEAKER) (test code = 652) CALCIUM (BEAKER) 9.0 mg/dL 8.4-10.2 (test code = 697) EGFR (BEAKER) (test 128 mL/min/1.73 ESTIM ATED GFR IS code = 1092) sq m NOT ACCURATE CREATININE CLEARANCE IN PREDICTING GLOMERULAR FILTRATION RATE . ESTIMATED GFR I S NOT APPLICABLE FOR DIALYSIS PATIEN TS. [employer] Adjuster ID - PIAYA LCBC W/PLT COUNT & AUTO [id number] 04:09:00 Test Item Value Reference Range Interpretation Comments WHITE BLOOD CELL COUNT (BEAKER) 3.7 K/ L 3.5-10.5 (test code = 775) RED BLOOD CELL COUNT (BEAKER) 4.27 M/ L 4.63-6.08 L (test code = 761) HEMOGLOBIN (BEAKER) (test code = 12.8 GM/DL 13.7-17.5 L 410) HEMATOCRIT (BEAKER) (test code = 36.1 % 40.1-51.0 L 411) MEAN CORPUSCULAR VOLUME (BEAKER) 84.5 fL 79.0-92.2 (test code = 753) MEAN CORPUSCULAR HEMOGLOBIN 30.0 pg 25.7-32.2 (BEAKER) (test code = 751) MEAN CORPUSCULAR HEMOGLOBIN CONC 35.5 GM/DL 32.3-36.5 (BEAKER) (test code = 752) RED CELL DISTRIBUTION WIDTH 14.6 % 11.6-14.4 H (BEAKER) (test code = 412) PLATELET COUNT (BEAKER) (test 113 K/CU MM 150-450 L code = 756) MEAN PLATELET VOLUME (BEAKER) 9.6 fL 9.4-12.4 (test code = 754) NUCLEATED RED BLOOD CELLS 0 /100 WBC 0-0 (BEAKER) (test code = 413) NEUTROPHILS RELATIVE PERCENT 52 % (BEAKER) (test code = 429) LYMPHOCYTES RELATIVE PERCENT 39 % (BEAKER) (test code = 430) MONOCYTES RELATIVE PERCENT 7 % (BEAKER) (test code = 431) EOSINOPHILS RELATIVE PERCENT 2 % (BEAKER) (test code = 432) BASOPHILS RELATIVE PERCENT 1 % (BEAKER) (test code = 437) NEUTROPHILS ABSOLUTE COUNT 1.91 K/ L 1.78-5.38 (BEAKER) (test code = 670) LYMPHOCYTES ABSOLUTE COUNT 1.43 K/ L 1.32-3.57 (BEAKER) (test code = 414) MONOCYTES ABSOLUTE COUNT (BEAKER) 0.26 K/ L 0.30-0.82 L (test code = 415) EOSINOPHILS ABSOLUTE COUNT 0.07 K/ L 0.04-0.54 (BEAKER) (test code = 416) BASOPHILS ABSOLUTE COUNT (BEAKER) 0.03 K/ L 0.01-0.08 (test code = 417) IMMATURE GRANULOCYTES-RELATIVE 0 % 0-1 PERCENT (BEAKER) (test code = 2801) BASIC METABOLIC [id number] 04:12:00 Test Item Value Reference Range Interpretation Comments SODIUM (BEAKER) 139 meq/L 136-145 (test code = 381) POTASSIUM (BEAKER) 3.9 meq/L 3.5-5.1 Specimen slightly (test code = 379) hemolyzed CHLORIDE (BEAKER) 107 meq/L 98-107 (test code = 382) CO2 (BEAKER) (test 27 meq/L 22-29 code = 355) BLOOD UREA NITROGEN 10 mg/dL 7-21 (BEAKER) (test code = 354) CREATININE (BEAKER) 0.67 mg/dL 0.57-1.25 Specimen slightly (test code = 358) hemolyzed GLUCOSE RANDOM 85 mg/dL 70-105 (BEAKER) (test code = 652) CALCIUM (BEAKER) 8.3 mg/dL 8.4-10.2 L (test code = 697) EGFR (BEAKER) (test 137 mL/min/1.73 ESTIM ATED GFR IS code = 1092) sq m NOT ACCURATE CREATININE CLEARANCE IN PREDICTING GLOMERULAR FILTRATION RATE . ESTIMATED GFR I S NOT APPLICABLE FOR DIALYSIS PATIEN TS. [employer] Adjuster ID - ANA MCBC W/PLT COUNT & AUTO [id number] 04:04:00 Test Item Value Reference Range Interpretation Comments WHITE BLOOD CELL COUNT (BEAKER) 3.7 K/ L 3.5-10.5 (test code = 775) RED BLOOD CELL COUNT (BEAKER) 4.01 M/ L 4.63-6.08 L (test code = 761) HEMOGLOBIN (BEAKER) (test code = 11.4 GM/DL 13.7-17.5 L 410) HEMATOCRIT (BEAKER) (test code = 34.0 % 40.1-51.0 L 411) MEAN CORPUSCULAR VOLUME (BEAKER) 84.8 fL 79.0-92.2 (test code = 753) MEAN CORPUSCULAR HEMOGLOBIN 28.4 pg 25.7-32.2 (BEAKER) (test code = 751) MEAN CORPUSCULAR HEMOGLOBIN CONC 33.5 GM/DL 32.3-36.5 (BEAKER) (test code = 752) RED CELL DISTRIBUTION WIDTH 14.3 % 11.6-14.4 (BEAKER) (test code = 412) PLATELET COUNT (BEAKER) (test 111 K/CU MM 150-450 L code = 756) MEAN PLATELET VOLUME (BEAKER) 9.6 fL 9.4-12.4 (test code = 754) NUCLEATED RED BLOOD CELLS 0 /100 WBC 0-0 (BEAKER) (test code = 413) NEUTROPHILS RELATIVE PERCENT 45 % (BEAKER) (test code = 429) LYMPHOCYTES RELATIVE PERCENT 44 % (BEAKER) (test code = 430) MONOCYTES RELATIVE PERCENT 8 % (BEAKER) (test code = 431) EOSINOPHILS RELATIVE PERCENT 2 % (BEAKER) (test code = 432) BASOPHILS RELATIVE PERCENT 1 % (BEAKER) (test code = 437) NEUTROPHILS ABSOLUTE COUNT 1.64 K/ L 1.78-5.38 L (BEAKER) (test code = 670) LYMPHOCYTES ABSOLUTE COUNT 1.61 K/ L 1.32-3.57 (BEAKER) (test code = 414) MONOCYTES ABSOLUTE COUNT (BEAKER) 0.30 K/ L 0.30-0.82 (test code = 415) EOSINOPHILS ABSOLUTE COUNT 0.06 K/ L 0.04-0.54 (BEAKER) (test code = 416) BASOPHILS ABSOLUTE COUNT (BEAKER) 0.03 K/ L 0.01-0.08 (test code = 417) IMMATURE GRANULOCYTES-RELATIVE 0 % 0-1 PERCENT (BEAKER) (test code = 2801) POCT-GLUCOSE [id number] 21:02:00 Test Item Value Reference Range Interpretation Comments POC-GLUCOSE METER 109 mg/dL 70-110 : TESTED A T [facility] 67[address] (BEAKER) (test code = [place], 1538) [address]: [employer] Adjuster/Techni daya ID = [id number] for MARY ELLEN HDEZ RAPID DRUG SCREEN, [id number] 18:44:00 Test Item Value Reference Range Interpretation Comments BARBITURATE URINE (BEAKER) (test Negative Negative code = 725) BENZODIAZEPINE SCREEN URINE (BEAKER) Negative Negative (test code = 726) COCAINE (METAB.) SCREEN (BEAKER) Negative Negative (test code = 1164) METHADONE SCREEN (BEAKER) (test code Negative Negative = 1436) OPIATE SCREEN URINE (BEAKER) (test Negative Negative code = 734) CANNABINOID SCREEN URINE (BEAKER) Negative Negative (test code = 727) AMPH/METHAMPH SCREEN (BEAKER) (test Negative Negative code = 1438) PHENCYCLIDINE SCREEN URINE (BEAKER) Negative Negative (test code = 608) PH UA (BEAKER) (test code = 467) 6.0 5.0-8.0 DRUG CUTOFF CONC.Cocaine 300 ng/mL Cannabinoid 50 ng/mLBenzodiazepine 200 ng/mLBarbiturate 200 ng/mLPhencyclidine 25 ng/mLOpiate 300 ng/mLMethadone 300 ng/mLAmphetamine/ 1000 ng/mL MethamphetamineThis assay provides an unconfirmed qualitative test result for the clinical management of patients in emergency situations. Chain of custody not maintained. Some gyrk-daa-jhuttam medications, as well as adulterants, may cause inaccurate results. Clinical correlation should be applied. A more comprehensivedrug screen or confirmation of a detected drug may be performed upon request.[employer] Adjuster ID - BSCT, ABDOMEN 2019-10-21 16:19:00FINAL REPORT ABDOMINAL AND PELVIS CT DATED 10/21/2019 COMPARISON: September 29, 2018 CLINICAL INFORMATION: Abdominal pain, acute, nonlocalizedepigastric abd pain, hx pancreatitis TECHNIQUE: Axial images of the abdomen and pelvis were obtained from diaphragm to the pubic symphysis with intravenous contrast. This exam was performed according [...] No CT evidence of pancreatitis. Signed: Carrington [facility]ex[facility] Verified Date/Time: 10/21/2019 16:19:36 Reading Location: [address] Body ReadingRoom Urinalysis w/Microscopic + Reflex to [id number] 14:45:00 Test Item Value Reference Range Interpretation Comments Color, UA (test code = Colorless 5778-6) Clarity, UA (test code Clear = 5767-9) Specific Eckerman, UA 1.008 1.001-1.035 (test code = 5811-5) pH, UA (test code = 6.0 5.0-8.0 5803-2) Protein, UA (test code Negative Negative = 36961-5) Glucose, UA (test code Negative Negative = 365) Ketones, UA (test code Negative Negative = 2514-8) Bilirubin, UA (test Negative Negative code = 81417-7) Blood, UA (test code = Negative Negative 90061-1) Nitrite, UA (test code Negative Negative = 5802-4) Leukocytes, UA (test Negative Negative code = 5799-2) Urobilinogen, UA (test 0.2 mg/dL 0.2-1 code = 87557-9) RBC, UA (test code = 0 /HPF 20637-1) WBC, UA (test code = 1 /HPF 5821-4) Squam Epithel, UA <1 /HPF (test code = 12425-6) Specimen Source (test code = 2795) RADHA (test code = RADHA) [employer] Adjuster ID - [auto][employer] Adjuster ID - divya [facility] UR[facility] [id number] 14:45:00 Test Item Value Reference Range Interpretation Comments COLOR (BEAKER) (test code = 470) Colorless CLARITY (BEAKER) (test code = 469) Clear SPECIFIC GRAVITY UA (BEAKER) (test 1.008 1.001-1.035 code = 468) PH UA (BEAKER) (test code = 467) 6.0 5.0-8.0 PROTEIN UA (BEAKER) (test code = Negative Negative 464) GLUCOSE UA (BEAKER) (test code = Negative Negative 365) KETONES UA (BEAKER) (test code = Negative Negative 371) BILIRUBIN UA (BEAKER) (test code = Negative Negative 462) BLOOD UA (BEAKER) (test code = 461) Negative Negative NITRITE UA (BEAKER) (test code = Negative Negative 465) LEUKOCYTE ESTERASE UA (BEAKER) Negative Negative (test code = 466) UROBILINOGEN UA (BEAKER) (test code 0.2 mg/dL 0.2-1.0 = 463) RBC UA (BEAKER) (test code = 519) 0 /HPF WBC UA (BEAKER) (test code = 520) 1 /HPF SQUAMOUS EPITHELIAL (BEAKER) (test < /HPF code = 516) SOURCE(BEAKER) (test code = 2795) [employer] Adjuster ID - [auto][employer] Adjuster ID - [id number] 14:31:00 Test Item Value Reference Range Interpretation Comments LIPASE (BEAKER) (test code = 749) 20 U/L 8-78 [employer] Adjuster ID - BSBASIC METABOLIC [id number] 14:31:00 Test Item Value Reference Range Interpretation Comments SODIUM (BEAKER) 141 meq/L 136-145 (test code = 381) POTASSIUM (BEAKER) 3.9 meq/L 3.5-5.1 (test code = 379) CHLORIDE (BEAKER) 107 meq/L 98-107 (test code = 382) CO2 (BEAKER) (test 22 meq/L 22-29 code = 355) BLOOD UREA NITROGEN 16 mg/dL 7-21 (BEAKER) (test code = 354) CREATININE (BEAKER) 0.74 mg/dL 0.57-1.25 (test code = 358) GLUCOSE RANDOM 100 mg/dL 70-105 (BEAKER) (test code = 652) CALCIUM (BEAKER) 9.2 mg/dL 8.4-10.2 (test code = 697) EGFR (BEAKER) (test 122 mL/min/1.73 ESTIM ATED GFR IS code = 1092) sq m NOT ACCURATE CREATININE CLEARANCE IN PREDICTING GLOMERULAR FILTRATION RATE . ESTIMATED GFR I S NOT APPLICABLE FOR DIALYSIS PATIEN TS. [employer] Adjuster ID - BSHEPATIC FUNCTION [id number] 14:31:00 Test Item Value Reference Range Interpretation Comments TOTAL PROTEIN (BEAKER) (test code = 8.1 gm/dL 6.0-8.3 770) ALBUMIN (BEAKER) (test code = 1145) 4.9 g/dL 3.5-5.0 BILIRUBIN TOTAL (BEAKER) (test code 0.4 mg/dL 0.2-1.2 = 377) BILIRUBIN DIRECT (BEAKER) (test 0.2 mg/dL 0.1-0.5 code = 706) ALKALINE PHOSPHATASE (BEAKER) (test 101 U/L 40-150 code = 346) AST (SGOT) (BEAKER) (test code = 24 U/L 5-34 353) ALT (SGPT) (BEAKER) (test code = 21 U/L 6-55 347) [employer] Adjuster ID - BSLACTIC ACID, [id number] 14:24:00 Test Item Value Reference Range Interpretation Comments LACTATE BLOOD VENOUS (2) (BEAKER) 2.36 mmol/L 0.50-2.20 H (test code = 2872) [employer] Adjuster ID - BSCBC W/PLT COUNT & AUTO [id number] 14:15:00 Test Item Value Reference Range Interpretation Comments WHITE BLOOD CELL COUNT (BEAKER) 6.1 K/ L 3.5-10.5 (test code = 775) RED BLOOD CELL COUNT (BEAKER) 4.80 M/ L 4.63-6.08 (test code = 761) HEMOGLOBIN (BEAKER) (test code = 14.3 GM/DL 13.7-17.5 410) HEMATOCRIT (BEAKER) (test code = 41.3 % 40.1-51.0 411) MEAN CORPUSCULAR VOLUME (BEAKER) 86.0 fL 79.0-92.2 (test code = 753) MEAN CORPUSCULAR HEMOGLOBIN 29.8 pg 25.7-32.2 (BEAKER) (test code = 751) MEAN CORPUSCULAR HEMOGLOBIN CONC 34.6 GM/DL 32.3-36.5 (BEAKER) (test code = 752) RED CELL DISTRIBUTION WIDTH 14.6 % 11.6-14.4 H (BEAKER) (test code = 412) PLATELET COUNT (BEAKER) (test 144 K/CU MM 150-450 L code = 756) MEAN PLATELET VOLUME (BEAKER) 9.9 fL 9.4-12.4 (test code = 754) NUCLEATED RED BLOOD CELLS 0 /100 WBC 0-0 (BEAKER) (test code = 413) NEUTROPHILS RELATIVE PERCENT 66 % (BEAKER) (test code = 429) LYMPHOCYTES RELATIVE PERCENT 28 % (BEAKER) (test code = 430) MONOCYTES RELATIVE PERCENT 5 % (BEAKER) (test code = 431) EOSINOPHILS RELATIVE PERCENT 0 % (BEAKER) (test code = 432) BASOPHILS RELATIVE PERCENT 1 % (BEAKER) (test code = 437) NEUTROPHILS ABSOLUTE COUNT 4.04 K/ L 1.78-5.38 (BEAKER) (test code = 670) LYMPHOCYTES ABSOLUTE COUNT 1.69 K/ L 1.32-3.57 (BEAKER) (test code = 414) MONOCYTES ABSOLUTE COUNT (BEAKER) 0.29 K/ L 0.30-0.82 L (test code = 415) EOSINOPHILS ABSOLUTE COUNT 0.01 K/ L 0.04-0.54 L (BEAKER) (test code = 416) BASOPHILS ABSOLUTE COUNT (BEAKER) 0.04 K/ L 0.01-0.08 (test code = 417) IMMATURE GRANULOCYTES-RELATIVE 1 % 0-1 PERCENT (BEAKER) (test code = 2801) RAPID DRUG SCREEN, [id number] 14:56:00 Test Item Value Reference Range Interpretation Comments BARBITURATE URINE (BEAKER) (test Negative Negative code = 725) BENZODIAZEPINE SCREEN URINE (BEAKER) Positive Negative A (test code = 726) COCAINE (METAB.) SCREEN (BEAKER) Negative Negative (test code = 1164) METHADONE SCREEN (BEAKER) (test code Negative Negative = 1436) OPIATE SCREEN URINE (BEAKER) (test Negative Negative code = 734) CANNABINOID SCREEN URINE (BEAKER) Positive Negative A (test code = 727) AMPH/METHAMPH SCREEN (BEAKER) (test Positive Negative A code = 1438) PHENCYCLIDINE SCREEN URINE (BEAKER) Negative Negative (test code = 608) Per customer care representative's recommendations, acceptable pH range for urine drug [...] situations. Chain of custody not maintained. Some iapg-dxr-svfytdg medications, as well as adulterants, may cause inaccurate results. Clinicalcorrelation should be applied. A more comprehensive drug screen or confirmation of a detected drug may be performed upon request.[id number] 03:05:00 Test Item Value Reference Range Interpretation Comments LIPASE (BEAKER) (test code = 749) 257 U/L 8-78 H BASIC METABOLIC [id number] 03:05:00 Test Item Value Reference Range Interpretation Comments SODIUM (BEAKER) 136 meq/L 136-145 (test code = 381) POTASSIUM (BEAKER) 4.5 meq/L 3.5-5.1 Specimen slightly (test code = 379) hemolyzed CHLORIDE (BEAKER) 104 meq/L 98-107 (test code = 382) CO2 (BEAKER) (test 25 meq/L 22-29 code = 355) BLOOD UREA NITROGEN 5 mg/dL 7-21 L (BEAKER) (test code = 354) CREATININE (BEAKER) 0.57 mg/dL 0.57-1.25 Specimen slightly (test code = 358) hemolyzed GLUCOSE RANDOM 87 mg/dL 70-105 (BEAKER) (test code = 652) CALCIUM (BEAKER) 8.4 mg/dL 8.4-10.2 (test code = 697) EGFR (BEAKER) (test 166 mL/min/1.73 ESTIM ATED GFR IS code = 1092) sq m NOT ACCURATE CREATININE CLEARANCE IN PREDICTING GLOMERULAR FILTRATION RATE . ESTIMATED GFR I S NOT APPLICABLE FOR DIALYSIS PATIEN TS. BASIC METABOLIC [id number] 04:41:00 Test Item Value Reference Range Interpretation Comments SODIUM (BEAKER) 134 meq/L 136-145 L (test code = 381) POTASSIUM (BEAKER) 3.9 meq/L 3.5-5.1 Specimen slightly (test code = 379) hemolyzed CHLORIDE (BEAKER) 102 meq/L 98-107 (test code = 382) CO2 (BEAKER) (test 26 meq/L 22-29 code = 355) BLOOD UREA NITROGEN 3 mg/dL 7-21 L (BEAKER) (test code = 354) CREATININE (BEAKER) 0.50 mg/dL 0.57-1.25 L Specimen slightly (test code = 358) hemolyzed GLUCOSE RANDOM 95 mg/dL 70-105 (BEAKER) (test code = 652) CALCIUM (BEAKER) 7.9 mg/dL 8.4-10.2 L (test code = 697) EGFR (BEAKER) (test 193 mL/min/1.73 ESTIM ATED GFR IS code = 1092) sq m NOT ACCURATE CREATININE CLEARANCE IN PREDICTING GLOMERULAR FILTRATION RATE . ESTIMATED GFR I S NOT APPLICABLE FOR DIALYSIS PATIEN TS. [id number] 04:31:00 Test Item Value Reference Range Interpretation Comments LIPASE (BEAKER) (test code = 749) 334 U/L 8-78 H TROPONIN [id number] 03:00:00 Test Item Value Reference Range Interpretation Comments TROPONIN I (BEAKER) (test code = [...] failure, acidosis, acute neurological disease, and persistent tachyarrhythmia.[id number] 02:54:00 Test Item Value Reference Range Interpretation Comments MAGNESIUM (BEAKER) 1.9 mg/dL 1.6-2.6 Specimen slightly (test code = 627) hemolyzed BASIC METABOLIC [id number] 02:54:00 Test Item Value Reference Range Interpretation Comments SODIUM (BEAKER) 136 meq/L 136-145 (test code = 381) POTASSIUM (BEAKER) 3.8 meq/L 3.5-5.1 Specimen slightly (test code = 379) hemolyzed CHLORIDE (BEAKER) 100 meq/L 98-107 (test code = 382) CO2 (BEAKER) (test 28 meq/L 22-29 code = 355) BLOOD UREA NITROGEN 3 mg/dL 7-21 L (BEAKER) (test code = 354) CREATININE (BEAKER) 0.56 mg/dL 0.57-1.25 L Specimen slightly (test code = 358) hemolyzed GLUCOSE RANDOM 111 mg/dL 70-105 H (BEAKER) (test code = 652) CALCIUM (BEAKER) 8.3 mg/dL 8.4-10.2 L (test code = 697) EGFR (BEAKER) (test 169 mL/min/1.73 ESTIM ATED GFR IS code = 1092) sq m NOT ACCURATE CREATININE CLEARANCE IN PREDICTING GLOMERULAR FILTRATION RATE . ESTIMATED GFR I S NOT APPLICABLE FOR DIALYSIS PATIEN TS. [id number] 02:54:00 Test Item Value Reference Range Interpretation Comments LIPASE (BEAKER) (test code = 749) 755 U/L 8-78 H CBC W/PLT COUNT & AUTO [id number] 02:33:00 Test Item Value Reference Range Interpretation Comments WHITE BLOOD CELL COUNT (BEAKER) 5.7 K/ L 3.5-10.5 (test code = 775) RED BLOOD CELL COUNT (BEAKER) 3.90 M/ L 4.63-6.08 L (test code = 761) HEMOGLOBIN (BEAKER) (test code = 12.0 GM/DL 13.7-17.5 L 410) HEMATOCRIT (BEAKER) (test code = 36.5 % 40.1-51.0 L 411) MEAN CORPUSCULAR VOLUME (BEAKER) 93.6 fL 79.0-92.2 H (test code = 753) MEAN CORPUSCULAR HEMOGLOBIN 30.8 pg 25.7-32.2 (BEAKER) (test code = 751) MEAN CORPUSCULAR HEMOGLOBIN CONC 32.9 GM/DL 32.3-36.5 (BEAKER) (test code = 752) RED CELL DISTRIBUTION WIDTH 13.6 % 11.6-14.4 (BEAKER) (test code = 412) PLATELET COUNT (BEAKER) (test 155 K/CU MM 150-450 code = 756) MEAN PLATELET VOLUME (BEAKER) 9.4 fL 9.4-12.4 (test code = 754) NUCLEATED RED BLOOD CELLS 0 /100 WBC 0-0 (BEAKER) (test code = 413) NEUTROPHILS RELATIVE PERCENT 70 % (BEAKER) (test code = 429) LYMPHOCYTES RELATIVE PERCENT 19 % (BEAKER) (test code = 430) MONOCYTES RELATIVE PERCENT 8 % (BEAKER) (test code = 431) EOSINOPHILS RELATIVE PERCENT 2 % (BEAKER) (test code = 432) BASOPHILS RELATIVE PERCENT 1 % (BEAKER) (test code = 437) NEUTROPHILS ABSOLUTE COUNT 4.03 K/ L 1.78-5.38 (BEAKER) (test code = 670) LYMPHOCYTES ABSOLUTE COUNT 1.07 K/ L 1.32-3.57 L (BEAKER) (test code = 414) MONOCYTES ABSOLUTE COUNT (BEAKER) 0.45 K/ L 0.30-0.82 (test code = 415) EOSINOPHILS ABSOLUTE COUNT 0.12 K/ L 0.04-0.54 (BEAKER) (test code = 416) BASOPHILS ABSOLUTE COUNT (BEAKER) 0.05 K/ L 0.01-0.08 (test code = 417) IMMATURE GRANULOCYTES-RELATIVE 0 % 0-1 PERCENT (BEAKER) (test code = 2801) RAD, CHEST, 1 VIEW, NON [id number] 02:26:00Reason for exam:->pleuritic chest painShould this be [...] No focalpulmonary consolidation or pneumothorax. Signed: To Christy MDReport Verified Date/Time: 03/22/2019 02:26:18 [id number] 08:35:00 Test Item Value Reference Range Interpretation Comments MAGNESIUM (BEAKER) 1.4 mg/dL 1.6-2.6 L Specimen slightly (test code = 627) hemolyzed BASIC METABOLIC [id number] 08:35:00 Test Item Value Reference Range Interpretation Comments SODIUM (BEAKER) 138 meq/L 136-145 (test code = 381) POTASSIUM (BEAKER) 3.7 meq/L 3.5-5.1 Specimen slightly (test code = 379) hemolyzed CHLORIDE (BEAKER) 102 meq/L 98-107 (test code = 382) CO2 (BEAKER) (test 23 meq/L 22-29 code = 355) BLOOD UREA NITROGEN 4 mg/dL 7-21 L (BEAKER) (test code = 354) CREATININE (BEAKER) 0.48 mg/dL 0.57-1.25 L Specimen slightly (test code = 358) hemolyzed GLUCOSE RANDOM 53 mg/dL 70-105 L (BEAKER) (test code = 652) CALCIUM (BEAKER) 8.1 mg/dL 8.4-10.2 L (test code = 697) EGFR (BEAKER) (test 202 mL/min/1.73 ESTIM ATED GFR IS code = 1092) sq m NOT ACCURATE CREATININE CLEARANCE IN PREDICTING GLOMERULAR FILTRATION RATE . ESTIMATED GFR I S NOT APPLICABLE FOR DIALYSIS PATIEN TS. HEPATIC FUNCTION [id number] 08:35:00 Test Item Value Reference Range Interpretation Comments TOTAL PROTEIN (BEAKER) 6.2 gm/dL 6.0-8.3 Speci men slightly (test code = 770) hemolyzed ALBUMIN (BEAKER) (test 2.7 g/dL 3.5-5.0 L Speci men slightly code = 1145) hemolyzed BILIRUBIN TOTAL 0.5 mg/dL 0.2-1.2 Specimen sli ghtly (BEAKER) (test code = hemoly zed 377) BILIRUBIN DIRECT 0.3 mg/dL 0.1-0.5 Specimen sl ightly (BEAKER) (test code = hemoly zed 706) ALKALINE PHOSPHATASE 151 U/L 40-150 H (BEAKER) (test code = 346) AST (SGOT) (BEAKER) 64 U/L 5-34 H Specimen slightly (test code = 353) hemolyzed ALT (SGPT) (BEAKER) 21 U/L 6-55 Specimen slightly (test code = 347) hemolyzed [id number] 08:35:00 Test Item Value Reference Range Interpretation Comments LIPASE (BEAKER) (test code = 749) 242 U/L 8-78 H CBC W/PLT COUNT & AUTO [id number] 06:25:00 Test Item Value Reference Range Interpretation Comments WHITE BLOOD CELL COUNT (BEAKER) 4.2 K/ L 3.5-10.5 (test code = 775) RED BLOOD CELL COUNT (BEAKER) 4.14 M/ L 4.63-6.08 L (test code = 761) HEMOGLOBIN (BEAKER) (test code = 12.7 GM/DL 13.7-17.5 L 410) HEMATOCRIT (BEAKER) (test code = 39.8 % 40.1-51.0 L 411) MEAN CORPUSCULAR VOLUME (BEAKER) 96.1 fL 79.0-92.2 H (test code = 753) MEAN CORPUSCULAR HEMOGLOBIN 30.7 pg 25.7-32.2 (BEAKER) (test code = 751) MEAN CORPUSCULAR HEMOGLOBIN CONC 31.9 GM/DL 32.3-36.5 L (BEAKER) (test code = 752) RED CELL DISTRIBUTION WIDTH 13.5 % 11.6-14.4 (BEAKER) (test code = 412) PLATELET COUNT (BEAKER) (test 186 K/CU MM 150-450 code = 756) MEAN PLATELET VOLUME (BEAKER) 10.9 fL 9.4-12.4 (test code = 754) NUCLEATED RED BLOOD CELLS 0 /100 WBC 0-0 (BEAKER) (test code = 413) NEUTROPHILS RELATIVE PERCENT 55 % (BEAKER) (test code = 429) LYMPHOCYTES RELATIVE PERCENT 31 % (BEAKER) (test code = 430) MONOCYTES RELATIVE PERCENT 8 % (BEAKER) (test code = 431) EOSINOPHILS RELATIVE PERCENT 5 % (BEAKER) (test code = 432) BASOPHILS RELATIVE PERCENT 1 % (BEAKER) (test code = 437) NEUTROPHILS ABSOLUTE COUNT 2.28 K/ L 1.78-5.38 (BEAKER) (test code = 670) LYMPHOCYTES ABSOLUTE COUNT 1.28 K/ L 1.32-3.57 L (BEAKER) (test code = 414) MONOCYTES ABSOLUTE COUNT (BEAKER) 0.35 K/ L 0.30-0.82 (test code = 415) EOSINOPHILS ABSOLUTE COUNT 0.21 K/ L 0.04-0.54 (BEAKER) (test code = 416) BASOPHILS ABSOLUTE COUNT (BEAKER) 0.05 K/ L 0.01-0.08 (test code = 417) IMMATURE GRANULOCYTES-RELATIVE 0 % 0-1 PERCENT (BEAKER) (test code = 2801) [id number] 07:42:00 Test Item Value Reference Range Interpretation Comments MAGNESIUM (BEAKER) (test code = 1.5 mg/dL 1.6-2.6 L 627) BASIC METABOLIC [id number] 07:42:00 Test Item Value Reference Range Interpretation Comments SODIUM (BEAKER) 140 meq/L 136-145 (test code = 381) POTASSIUM (BEAKER) 3.3 meq/L 3.5-5.1 L (test code = 379) CHLORIDE (BEAKER) 106 meq/L 98-107 (test code = 382) CO2 (BEAKER) (test 27 meq/L 22-29 code = 355) BLOOD UREA NITROGEN 6 mg/dL 7-21 L (BEAKER) (test code = 354) CREATININE (BEAKER) 0.53 mg/dL 0.57-1.25 L (test code = 358) GLUCOSE RANDOM 81 mg/dL 70-105 (BEAKER) (test code = 652) CALCIUM (BEAKER) 8.2 mg/dL 8.4-10.2 L (test code = 697) EGFR (BEAKER) (test 180 mL/min/1.73 ESTIM ATED GFR IS code = 1092) sq m NOT ACCURATE CREATININE CLEARANCE IN PREDICTING GLOMERULAR FILTRATION RATE . ESTIMATED GFR I S NOT APPLICABLE FOR DIALYSIS PATIEN TS. LIPID [id number] 07:42:00 Test Item Value Reference Range Interpretation Comments TRIGLYCERIDES (BEAKER) (test code = 63 mg/dL 540) CHOLESTEROL (BEAKER) (test code = 101 mg/dL 631) HDL CHOLESTEROL (BEAKER) (test code 20 mg/dL = 976) LDL CHOLESTEROL CALCULATED (BEAKER) 68 mg/dL (test code = 633) Triglyceride Reference Range: Low Risk <150 Borderline 150-199 High Risk 200-499 Very High Risk >=500Cholesterol Reference Range: Low Risk <200 Borderline 200-239 High Risk >240HDL Cholesterol Reference Range: Low Risk >=60 High Risk <40LDL Cholesterol Reference Range: Optimal <100 Near Optimal 100-129 Borderline 130-159 High 160-189 Very High >=190HEPATIC FUNCTION [id number] 07:42:00 Test Item Value Reference Range Interpretation Comments TOTAL PROTEIN (BEAKER) (test code = 6.1 gm/dL 6.0-8.3 770) ALBUMIN (BEAKER) (test code = 1145) 2.7 g/dL 3.5-5.0 L BILIRUBIN TOTAL (BEAKER) (test code 0.6 mg/dL 0.2-1.2 = 377) BILIRUBIN DIRECT (BEAKER) (test 0.4 mg/dL 0.1-0.5 code = 706) ALKALINE PHOSPHATASE (BEAKER) (test 157 U/L 40-150 H code = 346) AST (SGOT) (BEAKER) (test code = 58 U/L 5-34 H 353) ALT (SGPT) (BEAKER) (test code = 21 U/L 6-55 347) CBC W/PLT COUNT & AUTO [id number] 05:47:00 Test Item Value Reference Range Interpretation Comments WHITE BLOOD CELL COUNT (BEAKER) 4.3 K/ L 3.5-10.5 (test code = 775) RED BLOOD CELL COUNT (BEAKER) 3.66 M/ L 4.63-6.08 L (test code = 761) HEMOGLOBIN (BEAKER) (test code = 11.4 GM/DL 13.7-17.5 L 410) HEMATOCRIT (BEAKER) (test code = 35.8 % 40.1-51.0 L 411) MEAN CORPUSCULAR VOLUME (BEAKER) 97.8 fL 79.0-92.2 H (test code = 753) MEAN CORPUSCULAR HEMOGLOBIN 31.1 pg 25.7-32.2 (BEAKER) (test code = 751) MEAN CORPUSCULAR HEMOGLOBIN CONC 31.8 GM/DL 32.3-36.5 L (BEAKER) (test code = 752) RED CELL DISTRIBUTION WIDTH 14.2 % 11.6-14.4 (BEAKER) (test code = 412) PLATELET COUNT (BEAKER) (test 170 K/CU MM 150-450 code = 756) MEAN PLATELET VOLUME (BEAKER) 9.9 fL 9.4-12.4 (test code = 754) NUCLEATED RED BLOOD CELLS 0 /100 WBC 0-0 (BEAKER) (test code = 413) NEUTROPHILS RELATIVE PERCENT 55 % (BEAKER) (test code = 429) LYMPHOCYTES RELATIVE PERCENT 30 % (BEAKER) (test code = 430) MONOCYTES RELATIVE PERCENT 10 % (BEAKER) (test code = 431) EOSINOPHILS RELATIVE PERCENT 4 % (BEAKER) (test code = 432) BASOPHILS RELATIVE PERCENT 1 % (BEAKER) (test code = 437) NEUTROPHILS ABSOLUTE COUNT 2.36 K/ L 1.78-5.38 (BEAKER) (test code = 670) LYMPHOCYTES ABSOLUTE COUNT 1.30 K/ L 1.32-3.57 L (BEAKER) (test code = 414) MONOCYTES ABSOLUTE COUNT (BEAKER) 0.41 K/ L 0.30-0.82 (test code = 415) EOSINOPHILS ABSOLUTE COUNT 0.18 K/ L 0.04-0.54 (BEAKER) (test code = 416) BASOPHILS ABSOLUTE COUNT (BEAKER) 0.03 K/ L 0.01-0.08 (test code = 417) IMMATURE GRANULOCYTES-RELATIVE 1 % 0-1 PERCENT (BEAKER) (test code = 2801) BASIC METABOLIC [id number] 23:23:00 Test Item Value Reference Range Interpretation Comments SODIUM (BEAKER) 139 meq/L 136-145 (test code = 381) POTASSIUM (BEAKER) 3.1 meq/L 3.5-5.1 L (test code = 379) CHLORIDE (BEAKER) 103 meq/L 98-107 (test code = 382) CO2 (BEAKER) (test 28 meq/L 22-29 code = 355) BLOOD UREA NITROGEN 8 mg/dL 7-21 (BEAKER) (test code = 354) CREATININE (BEAKER) 0.60 mg/dL 0.57-1.25 (test code = 358) GLUCOSE RANDOM 92 mg/dL 70-105 (BEAKER) (test code = 652) CALCIUM (BEAKER) 8.6 mg/dL 8.4-10.2 (test code = 697) EGFR (BEAKER) (test 156 mL/min/1.73 ESTIM ATED GFR IS code = 1092) sq m NOT ACCURATE CREATININE CLEARANCE IN PREDICTING GLOMERULAR FILTRATION RATE . ESTIMATED GFR I S NOT APPLICABLE FOR DIALYSIS PATIEN TS. HEPATIC FUNCTION [id number] 23:23:00 Test Item Value Reference Range Interpretation Comments TOTAL PROTEIN (BEAKER) (test code = 7.1 gm/dL 6.0-8.3 770) ALBUMIN (BEAKER) (test code = 1145) 3.2 g/dL 3.5-5.0 L BILIRUBIN TOTAL (BEAKER) (test code 0.5 mg/dL 0.2-1.2 = 377) BILIRUBIN DIRECT (BEAKER) (test 0.4 mg/dL 0.1-0.5 code = 706) ALKALINE PHOSPHATASE (BEAKER) (test 187 U/L 40-150 H code = 346) AST (SGOT) (BEAKER) (test code = 62 U/L 5-34 H 353) ALT (SGPT) (BEAKER) (test code = 24 U/L 6-55 347) [id number] 22:57:00 Test Item Value Reference Range Interpretation Comments LIPASE (BEAKER) (test code = 749) 957 U/L 8-78 H [id number] 22:57:00 Test Item Value Reference Range Interpretation Comments AMYLASE (BEAKER) (test code = 349) 391 U/L 25-125 H [id number] 22:56:00 Test Item Value Reference Range Interpretation Comments PROTIME (BEAKER) (test code = 15.8 seconds 11.9-14.2 H 759) INR (BEAKER) (test code = 370) 1.3 <=5.9 PARTIAL THROMBOPLASTIN TIME 30.9 seconds 22.5-36.0 (BEAKER) (test code = 760) Effective 12/11/2018: PT Reference Range ChangeNew: 11.9-14.2 Previous: 11.7- 14.7RECOMMENDED COUMADIN/WARFARIN INR THERAPY RANGESSTANDARD DOSE: 2.0-3.0 Includes: PROPHYLAXIS for venous thrombosis, systemic embolization; TREATMENT for venous thrombosis and/or pulmonary embolus.HIGH RISK: Target INR is2.5-3.5 for patients wiht mechanical heart valves.CBC W/PLT COUNT & AUTO [id number] 22:41:00 Test Item Value Reference Range Interpretation Comments WHITE BLOOD CELL COUNT (BEAKER) 6.4 K/ L 3.5-10.5 (test code = 775) RED BLOOD CELL COUNT (BEAKER) 3.99 M/ L 4.63-6.08 L (test code = 761) HEMOGLOBIN (BEAKER) (test code = 12.6 GM/DL 13.7-17.5 L 410) HEMATOCRIT (BEAKER) (test code = 39.0 % 40.1-51.0 L 411) MEAN CORPUSCULAR VOLUME (BEAKER) 97.7 fL 79.0-92.2 H (test code = 753) MEAN CORPUSCULAR HEMOGLOBIN 31.6 pg 25.7-32.2 (BEAKER) (test code = 751) MEAN CORPUSCULAR HEMOGLOBIN CONC 32.3 GM/DL 32.3-36.5 (BEAKER) (test code = 752) RED CELL DISTRIBUTION WIDTH 14.1 % 11.6-14.4 (BEAKER) (test code = 412) PLATELET COUNT (BEAKER) (test 187 K/CU MM 150-450 code = 756) MEAN PLATELET VOLUME (BEAKER) 9.3 fL 9.4-12.4 L (test code = 754) NUCLEATED RED BLOOD CELLS 0 /100 WBC 0-0 (BEAKER) (test code = 413) NEUTROPHILS RELATIVE PERCENT 68 % (BEAKER) (test code = 429) LYMPHOCYTES RELATIVE PERCENT 19 % (BEAKER) (test code = 430) MONOCYTES RELATIVE PERCENT 10 % (BEAKER) (test code = 431) EOSINOPHILS RELATIVE PERCENT 2 % (BEAKER) (test code = 432) BASOPHILS RELATIVE PERCENT 1 % (BEAKER) (test code = 437) NEUTROPHILS ABSOLUTE COUNT 4.31 K/ L 1.78-5.38 (BEAKER) (test code = 670) LYMPHOCYTES ABSOLUTE COUNT 1.21 K/ L 1.32-3.57 L (BEAKER) (test code = 414) MONOCYTES ABSOLUTE COUNT (BEAKER) 0.65 K/ L 0.30-0.82 (test code = 415) EOSINOPHILS ABSOLUTE COUNT 0.14 K/ L 0.04-0.54 (BEAKER) (test code = 416) BASOPHILS ABSOLUTE COUNT (BEAKER) 0.04 K/ L 0.01-0.08 (test code = 417) IMMATURE GRANULOCYTES-RELATIVE 0 % 0-1 PERCENT (BEAKER) (test code = 2801) COMPREHENSIVE METABOLIC [id number] 06:44:00 Test Item Value Reference Range Interpretation Comments TOTAL PROTEIN 6.2 gm/dL 6.0-8.3 (BEAKER) (test code = 770) ALBUMIN (BEAKER) 2.7 g/dL 3.5-5.0 L (test code = 1145) ALKALINE PHOSPHATASE 195 U/L 40-150 H (BEAKER) (test code = 346) BILIRUBIN TOTAL 0.7 mg/dL 0.2-1.2 (BEAKER) (test code = 377) SODIUM (BEAKER) (test 138 meq/L 136-145 code = 381) POTASSIUM (BEAKER) 3.6 meq/L 3.5-5.1 (test code = 379) CHLORIDE (BEAKER) 102 meq/L 98-107 (test code = 382) CO2 (BEAKER) (test 28 meq/L 22-29 code = 355) BLOOD UREA NITROGEN 2 mg/dL 7-21 L (BEAKER) (test code = 354) CREATININE (BEAKER) 0.52 mg/dL 0.57-1.25 L (test code = 358) GLUCOSE RANDOM 103 mg/dL 70-105 (BEAKER) (test code = 652) CALCIUM (BEAKER) 8.5 mg/dL 8.4-10.2 (test code = 697) AST (SGOT) (BEAKER) 67 U/L 5-34 H (test code = 353) ALT (SGPT) (BEAKER) 31 U/L 6-55 (test code = 347) EGFR (BEAKER) (test 184 ESTIMATE D GFR IS code = 1092) mL/min/1.73 sq NOT ACCURA TE m CREATININE CLEARANCE IN PREDICTING GLOMERULAR FILTRATION RATE . ESTIMATED GFR I S NOT APPLICABLE FOR DIALYSIS PATIEN TS. CBC W/PLT COUNT & AUTO [id number] 06:09:00 Test Item Value Reference Range Interpretation Comments WHITE BLOOD CELL COUNT (BEAKER) 4.0 K/ L 3.5-10.5 (test code = 775) RED BLOOD CELL COUNT (BEAKER) 3.23 M/ L 4.63-6.08 L (test code = 761) HEMOGLOBIN (BEAKER) (test code = 10.6 GM/DL 13.7-17.5 L 410) HEMATOCRIT (BEAKER) (test code = 33.2 % 40.1-51.0 L 411) MEAN CORPUSCULAR VOLUME (BEAKER) 102.8 fL 79.0-92.2 H (test code = 753) MEAN CORPUSCULAR HEMOGLOBIN 32.8 pg 25.7-32.2 H (BEAKER) (test code = 751) MEAN CORPUSCULAR HEMOGLOBIN CONC 31.9 GM/DL 32.3-36.5 L (BEAKER) (test code = 752) RED CELL DISTRIBUTION WIDTH 15.5 % 11.6-14.4 H (BEAKER) (test code = 412) PLATELET COUNT (BEAKER) (test 226 K/CU MM 150-450 code = 756) MEAN PLATELET VOLUME (BEAKER) 10.4 fL 9.4-12.4 (test code = 754) NUCLEATED RED BLOOD CELLS 0 /100 WBC 0-0 (BEAKER) (test code = 413) NEUTROPHILS RELATIVE PERCENT 54 % (BEAKER) (test code = 429) LYMPHOCYTES RELATIVE PERCENT 29 % (BEAKER) (test code = 430) MONOCYTES RELATIVE PERCENT 9 % (BEAKER) (test code = 431) EOSINOPHILS RELATIVE PERCENT 6 % (BEAKER) (test code = 432) BASOPHILS RELATIVE PERCENT 1 % (BEAKER) (test code = 437) NEUTROPHILS ABSOLUTE COUNT 2.17 K/ L 1.78-5.38 (BEAKER) (test code = 670) LYMPHOCYTES ABSOLUTE COUNT 1.18 K/ L 1.32-3.57 L (BEAKER) (test code = 414) MONOCYTES ABSOLUTE COUNT (BEAKER) 0.37 K/ L 0.30-0.82 (test code = 415) EOSINOPHILS ABSOLUTE COUNT 0.25 K/ L 0.04-0.54 (BEAKER) (test code = 416) BASOPHILS ABSOLUTE COUNT (BEAKER) 0.04 K/ L 0.01-0.08 (test code = 417) IMMATURE GRANULOCYTES-RELATIVE 0 % 0-1 PERCENT (BEAKER) (test code = 2801) COMPREHENSIVE METABOLIC [id number] 07:17:00 Test Item Value Reference Range Interpretation Comments TOTAL PROTEIN 7.3 gm/dL 6.0-8.3 (BEAKER) (test code = 770) ALBUMIN (BEAKER) 3.2 g/dL 3.5-5.0 L (test code = 1145) ALKALINE PHOSPHATASE 235 U/L 40-150 H (BEAKER) (test code = 346) BILIRUBIN TOTAL 0.9 mg/dL 0.2-1.2 (BEAKER) (test code = 377) SODIUM (BEAKER) (test 135 meq/L 136-145 L code = 381) POTASSIUM (BEAKER) 3.6 meq/L 3.5-5.1 (test code = 379) CHLORIDE (BEAKER) 101 meq/L 98-107 (test code = 382) CO2 (BEAKER) (test 29 meq/L 22-29 code = 355) BLOOD UREA NITROGEN < mg/dL 7-21 L (BEAKER) (test code = 354) CREATININE (BEAKER) 0.56 mg/dL 0.57-1.25 L (test code = 358) GLUCOSE RANDOM 87 mg/dL 70-105 (BEAKER) (test code = 652) CALCIUM (BEAKER) 8.6 mg/dL 8.4-10.2 (test code = 697) AST (SGOT) (BEAKER) 96 U/L 5-34 H (test code = 353) ALT (SGPT) (BEAKER) 40 U/L 6-55 (test code = 347) EGFR (BEAKER) (test 169 ESTIMATE D GFR IS code = 1092) mL/min/1.73 sq NOT ACCURA TE m CREATININE CLEARANCE IN PREDICTING GLOMERULAR FILTRATION RATE . ESTIMATED GFR I S NOT APPLICABLE FOR DIALYSIS PATIEN TS. CBC W/PLT COUNT & AUTO [id number] 06:05:00 Test Item Value Reference Range Interpretation Comments WHITE BLOOD CELL COUNT (BEAKER) 5.1 K/ L 3.5-10.5 (test code = 775) RED BLOOD CELL COUNT (BEAKER) 3.60 M/ L 4.63-6.08 L (test code = 761) HEMOGLOBIN (BEAKER) (test code = 11.7 GM/DL 13.7-17.5 L 410) HEMATOCRIT (BEAKER) (test code = 37.6 % 40.1-51.0 L 411) MEAN CORPUSCULAR VOLUME (BEAKER) 104.4 fL 79.0-92.2 H (test code = 753) MEAN CORPUSCULAR HEMOGLOBIN 32.5 pg 25.7-32.2 H (BEAKER) (test code = 751) MEAN CORPUSCULAR HEMOGLOBIN CONC 31.1 GM/DL 32.3-36.5 L (BEAKER) (test code = 752) RED CELL DISTRIBUTION WIDTH 15.5 % 11.6-14.4 H (BEAKER) (test code = 412) PLATELET COUNT (BEAKER) (test 250 K/CU MM 150-450 code = 756) MEAN PLATELET VOLUME (BEAKER) 10.1 fL 9.4-12.4 (test code = 754) NUCLEATED RED BLOOD CELLS 0 /100 WBC 0-0 (BEAKER) (test code = 413) NEUTROPHILS RELATIVE PERCENT 61 % (BEAKER) (test code = 429) LYMPHOCYTES RELATIVE PERCENT 25 % (BEAKER) (test code = 430) MONOCYTES RELATIVE PERCENT 8 % (BEAKER) (test code = 431) EOSINOPHILS RELATIVE PERCENT 5 % (BEAKER) (test code = 432) BASOPHILS RELATIVE PERCENT 1 % (BEAKER) (test code = 437) NEUTROPHILS ABSOLUTE COUNT 3.09 K/ L 1.78-5.38 (BEAKER) (test code = 670) LYMPHOCYTES ABSOLUTE COUNT 1.28 K/ L 1.32-3.57 L (BEAKER) (test code = 414) MONOCYTES ABSOLUTE COUNT (BEAKER) 0.39 K/ L 0.30-0.82 (test code = 415) EOSINOPHILS ABSOLUTE COUNT 0.25 K/ L 0.04-0.54 (BEAKER) (test code = 416) BASOPHILS ABSOLUTE COUNT (BEAKER) 0.05 K/ L 0.01-0.08 (test code = 417) IMMATURE GRANULOCYTES-RELATIVE 0 % 0-1 PERCENT (BEAKER) (test code = 2801) [id number] 07:51:00 Test Item Value Reference Range Interpretation Comments MAGNESIUM (BEAKER) (test code = 1.7 mg/dL 1.6-2.6 627) COMPREHENSIVE METABOLIC [id number] 06:19:00 Test Item Value Reference Range Interpretation Comments TOTAL PROTEIN 6.1 gm/dL 6.0-8.3 (BEAKER) (test code = 770) ALBUMIN (BEAKER) 2.7 g/dL 3.5-5.0 L (test code = 1145) ALKALINE PHOSPHATASE 214 U/L 40-150 H (BEAKER) (test code = 346) BILIRUBIN TOTAL 0.9 mg/dL 0.2-1.2 (BEAKER) (test code = 377) SODIUM (BEAKER) (test 139 meq/L 136-145 code = 381) POTASSIUM (BEAKER) 4.2 meq/L 3.5-5.1 (test code = 379) CHLORIDE (BEAKER) 110 meq/L 98-107 H (test code = 382) CO2 (BEAKER) (test 24 meq/L 22-29 code = 355) BLOOD UREA NITROGEN < mg/dL 7-21 L (BEAKER) (test code = 354) CREATININE (BEAKER) 0.50 mg/dL 0.57-1.25 L (test code = 358) GLUCOSE RANDOM 77 mg/dL 70-105 (BEAKER) (test code = 652) CALCIUM (BEAKER) 7.7 mg/dL 8.4-10.2 L (test code = 697) AST (SGOT) (BEAKER) 96 U/L 5-34 H (test code = 353) ALT (SGPT) (BEAKER) 37 U/L 6-55 (test code = 347) EGFR (BEAKER) (test 193 ESTIMATE D GFR IS code = 1092) mL/min/1.73 sq NOT ACCURA TE m CREATININE CLEARANCE IN PREDICTING GLOMERULAR FILTRATION RATE . ESTIMATED GFR I S NOT APPLICABLE FOR DIALYSIS PATIEN TS. CBC W/PLT COUNT & AUTO [id number] 05:15:00 Test Item Value Reference Range Interpretation Comments WHITE BLOOD CELL COUNT (BEAKER) 4.8 K/ L 3.5-10.5 (test code = 775) RED BLOOD CELL COUNT (BEAKER) 3.25 M/ L 4.63-6.08 L (test code = 761) HEMOGLOBIN (BEAKER) (test code = 10.7 GM/DL 13.7-17.5 L 410) HEMATOCRIT (BEAKER) (test code = 34.0 % 40.1-51.0 L 411) MEAN CORPUSCULAR VOLUME (BEAKER) 104.6 fL 79.0-92.2 H (test code = 753) MEAN CORPUSCULAR HEMOGLOBIN 32.9 pg 25.7-32.2 H (BEAKER) (test code = 751) MEAN CORPUSCULAR HEMOGLOBIN CONC 31.5 GM/DL 32.3-36.5 L (BEAKER) (test code = 752) RED CELL DISTRIBUTION WIDTH 15.5 % 11.6-14.4 H (BEAKER) (test code = 412) PLATELET COUNT (BEAKER) (test 219 K/CU MM 150-450 code = 756) MEAN PLATELET VOLUME (BEAKER) 10.2 fL 9.4-12.4 (test code = 754) NUCLEATED RED BLOOD CELLS 0 /100 WBC 0-0 (BEAKER) (test code = 413) NEUTROPHILS RELATIVE PERCENT 56 % (BEAKER) (test code = 429) LYMPHOCYTES RELATIVE PERCENT 29 % (BEAKER) (test code = 430) MONOCYTES RELATIVE PERCENT 8 % (BEAKER) (test code = 431) EOSINOPHILS RELATIVE PERCENT 5 % (BEAKER) (test code = 432) BASOPHILS RELATIVE PERCENT 1 % (BEAKER) (test code = 437) NEUTROPHILS ABSOLUTE COUNT 2.69 K/ L 1.78-5.38 (BEAKER) (test code = 670) LYMPHOCYTES ABSOLUTE COUNT 1.40 K/ L 1.32-3.57 (BEAKER) (test code = 414) MONOCYTES ABSOLUTE COUNT (BEAKER) 0.37 K/ L 0.30-0.82 (test code = 415) EOSINOPHILS ABSOLUTE COUNT 0.25 K/ L 0.04-0.54 (BEAKER) (test code = 416) BASOPHILS ABSOLUTE COUNT (BEAKER) 0.05 K/ L 0.01-0.08 (test code = 417) IMMATURE GRANULOCYTES-RELATIVE 0 % 0-1 PERCENT (BEAKER) (test code = 2801) COMPREHENSIVE METABOLIC [id number] 09:35:00 Test Item Value Reference Range Interpretation Comments TOTAL PROTEIN 6.4 gm/dL 6.0-8.3 Specimen sligh tly (BEAKER) (test code = hemoly zed 770) ALBUMIN (BEAKER) 2.8 g/dL 3.5-5.0 L Specimen sl ightly (test code = 1145) hemolyzed ALKALINE PHOSPHATASE 214 U/L 40-150 H (BEAKER) (test code = 346) BILIRUBIN TOTAL 1.0 mg/dL 0.2-1.2 Specimen sli ghtly (BEAKER) (test code = hemoly zed 377) SODIUM (BEAKER) (test 136 meq/L 136-145 code = 381) POTASSIUM (BEAKER) 4.2 meq/L 3.5-5.1 Specimen slightly (test code = 379) hemolyzed CHLORIDE (BEAKER) 107 meq/L 98-107 (test code = 382) CO2 (BEAKER) (test 23 meq/L 22-29 code = 355) BLOOD UREA NITROGEN 2 mg/dL 7-21 L (BEAKER) (test code = 354) CREATININE (BEAKER) 0.54 mg/dL 0.57-1.25 L Specimen slightly (test code = 358) hemolyzed GLUCOSE RANDOM 89 mg/dL 70-105 (BEAKER) (test code = 652) CALCIUM (BEAKER) 7.6 mg/dL 8.4-10.2 L (test code = 697) AST (SGOT) (BEAKER) 101 U/L 5-34 H Specimen slightly (test code = 353) hemolyzed ALT (SGPT) (BEAKER) 41 U/L 6-55 Specimen slightly (test code = 347) hemolyzed EGFR (BEAKER) (test 176 ESTIMATE D GFR IS code = 1092) mL/min/1.73 sq NOT ACCURA TE m CREATININE CLEARANCE IN PREDICTING GLOMERULAR FILTRATION RATE . ESTIMATED GFR I S NOT APPLICABLE FOR DIALYSIS PATIEN TS. [id number] 09:27:00 Test Item Value Reference Range Interpretation Comments MAGNESIUM (BEAKER) 1.3 mg/dL 1.6-2.6 L Specimen slightly (test code = 627) hemolyzed CBC W/PLT COUNT & AUTO [id number] 09:04:00 Test Item Value Reference Range Interpretation Comments WHITE BLOOD CELL COUNT (BEAKER) 5.7 K/ L 3.5-10.5 (test code = 775) RED BLOOD CELL COUNT (BEAKER) 3.18 M/ L 4.63-6.08 L (test code = 761) HEMOGLOBIN (BEAKER) (test code = 10.4 GM/DL 13.7-17.5 L 410) HEMATOCRIT (BEAKER) (test code = 33.1 % 40.1-51.0 L 411) MEAN CORPUSCULAR VOLUME (BEAKER) 104.1 fL 79.0-92.2 H (test code = 753) MEAN CORPUSCULAR HEMOGLOBIN 32.7 pg 25.7-32.2 H (BEAKER) (test code = 751) MEAN CORPUSCULAR HEMOGLOBIN CONC 31.4 GM/DL 32.3-36.5 L (BEAKER) (test code = 752) RED CELL DISTRIBUTION WIDTH 15.9 % 11.6-14.4 H (BEAKER) (test code = 412) PLATELET COUNT (BEAKER) (test 223 K/CU MM 150-450 code = 756) MEAN PLATELET VOLUME (BEAKER) 10.4 fL 9.4-12.4 (test code = 754) NUCLEATED RED BLOOD CELLS 0 /100 WBC 0-0 (BEAKER) (test code = 413) NEUTROPHILS RELATIVE PERCENT 58 % (BEAKER) (test code = 429) LYMPHOCYTES RELATIVE PERCENT 25 % (BEAKER) (test code = 430) MONOCYTES RELATIVE PERCENT 11 % (BEAKER) (test code = 431) EOSINOPHILS RELATIVE PERCENT 5 % (BEAKER) (test code = 432) BASOPHILS RELATIVE PERCENT 1 % (BEAKER) (test code = 437) NEUTROPHILS ABSOLUTE COUNT 3.27 K/ L 1.78-5.38 (BEAKER) (test code = 670) LYMPHOCYTES ABSOLUTE COUNT 1.40 K/ L 1.32-3.57 (BEAKER) (test code = 414) MONOCYTES ABSOLUTE COUNT (BEAKER) 0.61 K/ L 0.30-0.82 (test code = 415) EOSINOPHILS ABSOLUTE COUNT 0.30 K/ L 0.04-0.54 (BEAKER) (test code = 416) BASOPHILS ABSOLUTE COUNT (BEAKER) 0.07 K/ L 0.01-0.08 (test code = 417) IMMATURE GRANULOCYTES-RELATIVE 0 % 0-1 PERCENT (BEAKER) (test code = 2801) COMPREHENSIVE METABOLIC [id number] 05:26:00 Test Item Value Reference Range Interpretation Comments TOTAL PROTEIN 5.7 gm/dL 6.0-8.3 L (BEAKER) (test code = 770) ALBUMIN (BEAKER) 2.6 g/dL 3.5-5.0 L (test code = 1145) ALKALINE PHOSPHATASE 204 U/L 40-150 H (BEAKER) (test code = 346) BILIRUBIN TOTAL 1.0 mg/dL 0.2-1.2 (BEAKER) (test code = 377) SODIUM (BEAKER) (test 138 meq/L 136-145 code = 381) POTASSIUM (BEAKER) 3.3 meq/L 3.5-5.1 L (test code = 379) CHLORIDE (BEAKER) 106 meq/L 98-107 (test code = 382) CO2 (BEAKER) (test 24 meq/L 22-29 code = 355) BLOOD UREA NITROGEN 5 mg/dL 7-21 L (BEAKER) (test code = 354) CREATININE (BEAKER) 0.53 mg/dL 0.57-1.25 L (test code = 358) GLUCOSE RANDOM 85 mg/dL 70-105 (BEAKER) (test code = 652) CALCIUM (BEAKER) 7.3 mg/dL 8.4-10.2 L (test code = 697) AST (SGOT) (BEAKER) 108 U/L 5-34 H (test code = 353) ALT (SGPT) (BEAKER) 46 U/L 6-55 (test code = 347) EGFR (BEAKER) (test 180 ESTIMATE D GFR IS code = 1092) mL/min/1.73 sq NOT ACCURA TE m CREATININE CLEARANCE IN PREDICTING GLOMERULAR FILTRATION RATE . ESTIMATED GFR I S NOT APPLICABLE FOR DIALYSIS PATIEN TS. PROTHROMBIN [id number] 05:08:00 Test Item Value Reference Range Interpretation Comments PROTIME (BEAKER) (test code = 17.0 seconds 11.9-14.2 H 759) INR (BEAKER) (test code = 370) 1.5 <=5.9 Effective 12/11/2018: PT Reference Range ChangeNew: 11.9-14.2 Previous: 11.7- 14.7RECOMMENDED COUMADIN/WARFARIN INR THERAPY RANGESSTANDARD DOSE: 2.0-3.0 Includes: PROPHYLAXIS for venous thrombosis, systemic embolization; TREATMENT for venous thrombosis and/or pulmonary embolus.HIGH RISK: Target INR is2.5-3.5 for patients wiht mechanical heart valves.CBC W/PLT COUNT & AUTO [id number] 04:59:00 Test Item Value Reference Range Interpretation Comments WHITE BLOOD CELL COUNT (BEAKER) 6.1 K/ L 3.5-10.5 (test code = 775) RED BLOOD CELL COUNT (BEAKER) 2.96 M/ L 4.63-6.08 L (test code = 761) HEMOGLOBIN (BEAKER) (test code = 9.7 GM/DL 13.7-17.5 L 410) HEMATOCRIT (BEAKER) (test code = 30.5 % 40.1-51.0 L 411) MEAN CORPUSCULAR VOLUME (BEAKER) 103.0 fL 79.0-92.2 H (test code = 753) MEAN CORPUSCULAR HEMOGLOBIN 32.8 pg 25.7-32.2 H (BEAKER) (test code = 751) MEAN CORPUSCULAR HEMOGLOBIN CONC 31.8 GM/DL 32.3-36.5 L (BEAKER) (test code = 752) RED CELL DISTRIBUTION WIDTH 16.0 % 11.6-14.4 H (BEAKER) (test code = 412) PLATELET COUNT (BEAKER) (test 221 K/CU MM 150-450 code = 756) MEAN PLATELET VOLUME (BEAKER) 10.7 fL 9.4-12.4 (test code = 754) NUCLEATED RED BLOOD CELLS 0 /100 WBC 0-0 (BEAKER) (test code = 413) NEUTROPHILS RELATIVE PERCENT 62 % (BEAKER) (test code = 429) LYMPHOCYTES RELATIVE PERCENT 22 % (BEAKER) (test code = 430) MONOCYTES RELATIVE PERCENT 11 % (BEAKER) (test code = 431) EOSINOPHILS RELATIVE PERCENT 3 % (BEAKER) (test code = 432) BASOPHILS RELATIVE PERCENT 1 % (BEAKER) (test code = 437) NEUTROPHILS ABSOLUTE COUNT 3.81 K/ L 1.78-5.38 (BEAKER) (test code = 670) LYMPHOCYTES ABSOLUTE COUNT 1.32 K/ L 1.32-3.57 (BEAKER) (test code = 414) MONOCYTES ABSOLUTE COUNT (BEAKER) 0.70 K/ L 0.30-0.82 (test code = 415) EOSINOPHILS ABSOLUTE COUNT 0.21 K/ L 0.04-0.54 (BEAKER) (test code = 416) BASOPHILS ABSOLUTE COUNT (BEAKER) 0.07 K/ L 0.01-0.08 (test code = 417) IMMATURE GRANULOCYTES-RELATIVE 0 % 0-1 PERCENT (BEAKER) (test code = 2801) POCT-GLUCOSE [id number] 07:44:00 Test Item Value Reference Range Interpretation Comments POC-GLUCOSE METER 90 mg/dL 70-110 TESTED AT [facility] (BEAKER) (test code = CHANCE Hernandez [facility] [id number]) COMPREHENSIVE METABOLIC [id number] 07:29:00 Test Item Value Reference Range Interpretation Comments TOTAL PROTEIN 5.7 gm/dL 6.0-8.3 L (BEAKER) (test code = 770) ALBUMIN (BEAKER) 2.5 g/dL 3.5-5.0 L (test code = 1145) ALKALINE PHOSPHATASE 411 U/L 40-150 H (BEAKER) (test code = 346) BILIRUBIN TOTAL 1.7 mg/dL 0.2-1.2 H (BEAKER) (test code = 377) SODIUM (BEAKER) (test 139 meq/L 136-145 code = 381) POTASSIUM (BEAKER) 3.1 meq/L 3.5-5.1 L (test code = 379) CHLORIDE (BEAKER) 105 meq/L 98-107 (test code = 382) CO2 (BEAKER) (test 24 meq/L 22-29 code = 355) BLOOD UREA NITROGEN 3 mg/dL 7-21 L (BEAKER) (test code = 354) CREATININE (BEAKER) 0.61 mg/dL 0.57-1.25 (test code = 358) GLUCOSE RANDOM 95 mg/dL 70-105 (BEAKER) (test code = 652) CALCIUM (BEAKER) 6.8 mg/dL 8.4-10.2 L (test code = 697) AST (SGOT) (BEAKER) 173 U/L 5-34 H (test code = 353) ALT (SGPT) (BEAKER) 53 U/L 6-55 (test code = 347) EGFR (BEAKER) (test 153 ESTIMATE D GFR IS code = 1092) mL/min/1.73 sq NOT ACCURA TE m CREATININE CLEARANCE IN PREDICTING GLOMERULAR FILTRATION RATE . ESTIMATED GFR I S NOT APPLICABLE FOR DIALYSIS PATIEN TS. [id number] 07:28:00 Test Item Value Reference Range Interpretation Comments PHOSPHORUS (BEAKER) (test code = 2.4 mg/dL 2.3-4.7 604) [id number] 07:28:00 Test Item Value Reference Range Interpretation Comments MAGNESIUM (BEAKER) (test code = 1.8 mg/dL 1.6-2.6 627) HEPATIC FUNCTION [id number] 07:28:00 Test Item Value Reference Range Interpretation Comments TOTAL PROTEIN (BEAKER) (test code = 5.7 gm/dL 6.0-8.3 L 770) ALBUMIN (BEAKER) (test code = 1145) 2.5 g/dL 3.5-5.0 L BILIRUBIN TOTAL (BEAKER) (test code 1.7 mg/dL 0.2-1.2 H = 377) BILIRUBIN DIRECT (BEAKER) (test 1.3 mg/dL 0.1-0.5 H code = 706) ALKALINE PHOSPHATASE (BEAKER) (test 411 U/L 40-150 H code = 346) AST (SGOT) (BEAKER) (test code = 173 U/L 5-34 H 353) ALT (SGPT) (BEAKER) (test code = 53 U/L 6-55 347) [id number] 07:28:00 Test Item Value Reference Range Interpretation Comments LIPASE (BEAKER) (test code = 749) 231 U/L 8-78 H CBC W/PLT COUNT & AUTO [id number] 07:10:00 Test Item Value Reference Range Interpretation Comments WHITE BLOOD CELL COUNT (BEAKER) 4.5 K/ L 3.5-10.5 (test code = 775) RED BLOOD CELL COUNT (BEAKER) 2.76 M/ L 4.63-6.08 L (test code = 761) HEMOGLOBIN (BEAKER) (test code = 9.2 GM/DL 13.7-17.5 L 410) HEMATOCRIT (BEAKER) (test code = 29.2 % 40.1-51.0 L 411) MEAN CORPUSCULAR VOLUME (BEAKER) 105.8 fL 79.0-92.2 H (test code = 753) MEAN CORPUSCULAR HEMOGLOBIN 33.3 pg 25.7-32.2 H (BEAKER) (test code = 751) MEAN CORPUSCULAR HEMOGLOBIN CONC 31.5 GM/DL 32.3-36.5 L (BEAKER) (test code = 752) RED CELL DISTRIBUTION WIDTH 21.9 % 11.6-14.4 H (BEAKER) (test code = 412) PLATELET COUNT (BEAKER) (test 150 K/CU MM 150-450 code = 756) MEAN PLATELET VOLUME (BEAKER) 10.5 fL 9.4-12.4 (test code = 754) NUCLEATED RED BLOOD CELLS 0 /100 WBC 0-0 (BEAKER) (test code = 413) NEUTROPHILS RELATIVE PERCENT 65 % (BEAKER) (test code = 429) LYMPHOCYTES RELATIVE PERCENT 17 % (BEAKER) (test code = 430) MONOCYTES RELATIVE PERCENT 13 % (BEAKER) (test code = 431) EOSINOPHILS RELATIVE PERCENT 2 % (BEAKER) (test code = 432) BASOPHILS RELATIVE PERCENT 1 % (BEAKER) (test code = 437) NEUTROPHILS ABSOLUTE COUNT 2.91 K/ L 1.78-5.38 (BEAKER) (test code = 670) LYMPHOCYTES ABSOLUTE COUNT 0.78 K/ L 1.32-3.57 L (BEAKER) (test code = 414) MONOCYTES ABSOLUTE COUNT (BEAKER) 0.59 K/ L 0.30-0.82 (test code = 415) EOSINOPHILS ABSOLUTE COUNT 0.11 K/ L 0.04-0.54 (BEAKER) (test code = 416) BASOPHILS ABSOLUTE COUNT (BEAKER) 0.05 K/ L 0.01-0.08 (test code = 417) IMMATURE GRANULOCYTES-RELATIVE 2 % 0-1 H PERCENT (BEAKER) (test code = 2801) COMPREHENSIVE METABOLIC [id number] 04:23:00 Test Item Value Reference Range Interpretation Comments TOTAL PROTEIN 5.5 gm/dL 6.0-8.3 L (BEAKER) (test code = 770) ALBUMIN (BEAKER) 2.5 g/dL 3.5-5.0 L (test code = 1145) ALKALINE PHOSPHATASE 453 U/L 40-150 H (BEAKER) (test code = 346) BILIRUBIN TOTAL 2.0 mg/dL 0.2-1.2 H (BEAKER) (test code = 377) SODIUM (BEAKER) (test 138 meq/L 136-145 code = 381) POTASSIUM (BEAKER) 3.2 meq/L 3.5-5.1 L (test code = 379) CHLORIDE (BEAKER) 104 meq/L 98-107 (test code = 382) CO2 (BEAKER) (test 26 meq/L 22-29 code = 355) BLOOD UREA NITROGEN 3 mg/dL 7-21 L (BEAKER) (test code = 354) CREATININE (BEAKER) 0.51 mg/dL 0.57-1.25 L (test code = 358) GLUCOSE RANDOM 104 mg/dL 70-105 (BEAKER) (test code = 652) CALCIUM (BEAKER) 7.0 mg/dL 8.4-10.2 L (test code = 697) AST (SGOT) (BEAKER) 166 U/L 5-34 H (test code = 353) ALT (SGPT) (BEAKER) 52 U/L 6-55 (test code = 347) EGFR (BEAKER) (test 188 ESTIMATE D GFR IS code = 1092) mL/min/1.73 sq NOT ACCURA TE m CREATININE CLEARANCE IN PREDICTING GLOMERULAR FILTRATION RATE . ESTIMATED GFR I S NOT APPLICABLE FOR DIALYSIS PATIEN TS. [id number] 04:21:00 Test Item Value Reference Range Interpretation Comments PHOSPHORUS (BEAKER) (test code = 2.0 mg/dL 2.3-4.7 L 604) [id number] 04:21:00 Test Item Value Reference Range Interpretation Comments MAGNESIUM (BEAKER) (test code = 1.5 mg/dL 1.6-2.6 L 627) HEPATIC FUNCTION [id number] 04:21:00 Test Item Value Reference Range Interpretation Comments TOTAL PROTEIN (BEAKER) (test code = 5.5 gm/dL 6.0-8.3 L 770) ALBUMIN (BEAKER) (test code = 1145) 2.5 g/dL 3.5-5.0 L BILIRUBIN TOTAL (BEAKER) (test code 2.0 mg/dL 0.2-1.2 H = 377) BILIRUBIN DIRECT (BEAKER) (test 1.5 mg/dL 0.1-0.5 H code = 706) ALKALINE PHOSPHATASE (BEAKER) (test 453 U/L 40-150 H code = 346) AST (SGOT) (BEAKER) (test code = 166 U/L 5-34 H 353) ALT (SGPT) (BEAKER) (test code = 52 U/L 6-55 347) [id number] 04:21:00 Test Item Value Reference Range Interpretation Comments LIPASE (BEAKER) (test code = 749) 283 U/L 8-78 H CBC W/PLT COUNT & AUTO [id number] 04:19:00 Test Item Value Reference Range Interpretation Comments WHITE BLOOD CELL COUNT (BEAKER) 4.6 K/ L 3.5-10.5 (test code = 775) RED BLOOD CELL COUNT (BEAKER) 2.82 M/ L 4.63-6.08 L (test code = 761) HEMOGLOBIN (BEAKER) (test code = 9.4 GM/DL 13.7-17.5 L 410) HEMATOCRIT (BEAKER) (test code = 28.9 % 40.1-51.0 L 411) MEAN CORPUSCULAR VOLUME (BEAKER) 102.5 fL 79.0-92.2 H (test code = 753) MEAN CORPUSCULAR HEMOGLOBIN 33.3 pg 25.7-32.2 H (BEAKER) (test code = 751) MEAN CORPUSCULAR HEMOGLOBIN CONC 32.5 GM/DL 32.3-36.5 (BEAKER) (test code = 752) RED CELL DISTRIBUTION WIDTH 21.8 % 11.6-14.4 H (BEAKER) (test code = 412) PLATELET COUNT (BEAKER) (test 141 K/CU MM 150-450 L code = 756) MEAN PLATELET VOLUME (BEAKER) 9.5 fL 9.4-12.4 (test code = 754) NUCLEATED RED BLOOD CELLS 0 /100 WBC 0-0 (BEAKER) (test code = 413) NEUTROPHILS RELATIVE PERCENT 63 % (BEAKER) (test code = 429) LYMPHOCYTES RELATIVE PERCENT 22 % (BEAKER) (test code = 430) MONOCYTES RELATIVE PERCENT 10 % (BEAKER) (test code = 431) EOSINOPHILS RELATIVE PERCENT 3 % (BEAKER) (test code = 432) BASOPHILS RELATIVE PERCENT 1 % (BEAKER) (test code = 437) NEUTROPHILS ABSOLUTE COUNT 2.86 K/ L 1.78-5.38 (BEAKER) (test code = 670) LYMPHOCYTES ABSOLUTE COUNT 1.02 K/ L 1.32-3.57 L (BEAKER) (test code = 414) MONOCYTES ABSOLUTE COUNT (BEAKER) 0.44 K/ L 0.30-0.82 (test code = 415) EOSINOPHILS ABSOLUTE COUNT 0.12 K/ L 0.04-0.54 (BEAKER) (test code = 416) BASOPHILS ABSOLUTE COUNT (BEAKER) 0.05 K/ L 0.01-0.08 (test code = 417) IMMATURE GRANULOCYTES-RELATIVE 2 % 0-1 H PERCENT (BEAKER) (test code = 2801) HEMOGLOBIN AND [id number] 03:57:00 Test Item Value Reference Range Interpretation Comments HEMOGLOBIN (BEAKER) (test code = 9.4 GM/DL 13.7-17.5 L 410) HEMATOCRIT (BEAKER) (test code = 28.9 % 40.1-51.0 L 411) HEMOGLOBIN AND [id number] 11:59:00 Test Item Value Reference Range Interpretation Comments HEMOGLOBIN (BEAKER) (test code = 8.4 GM/DL 13.7-17.5 L 410) HEMATOCRIT (BEAKER) (test code = 24.7 % 40.1-51.0 L 411) [id number] 09:15:00 Test Item Value Reference Range Interpretation Comments LIPASE (BEAKER) (test code = 749) 214 U/L 8-78 H HEPATIC FUNCTION [id number] 06:09:00 Test Item Value Reference Range Interpretation Comments TOTAL PROTEIN (BEAKER) (test code = 5.1 gm/dL 6.0-8.3 L 770) ALBUMIN (BEAKER) (test code = 1145) 2.4 g/dL 3.5-5.0 L BILIRUBIN TOTAL (BEAKER) (test code 2.0 mg/dL 0.2-1.2 H = 377) BILIRUBIN DIRECT (BEAKER) (test 1.4 mg/dL 0.1-0.5 H code = 706) ALKALINE PHOSPHATASE (BEAKER) (test 418 U/L 40-150 H code = 346) AST (SGOT) (BEAKER) (test code = 147 U/L 5-34 H 353) ALT (SGPT) (BEAKER) (test code = 51 U/L 6-55 347) CBC (HEMOGRAM ONLY)[id number] 05:04:00 Test Item Value Reference Range Interpretation Comments WHITE BLOOD CELL COUNT (BEAKER) 4.8 K/ L 3.5-10.5 (test code = 775) RED BLOOD CELL COUNT (BEAKER) 2.41 M/ L 4.63-6.08 L (test code = 761) HEMOGLOBIN (BEAKER) (test code = 8.1 GM/DL 13.7-17.5 L 410) HEMATOCRIT (BEAKER) (test code = 24.1 % 40.1-51.0 L 411) MEAN CORPUSCULAR VOLUME (BEAKER) 100.0 fL 79.0-92.2 H (test code = 753) MEAN CORPUSCULAR HEMOGLOBIN 33.6 pg 25.7-32.2 H (BEAKER) (test code = 751) MEAN CORPUSCULAR HEMOGLOBIN CONC 33.6 GM/DL 32.3-36.5 (BEAKER) (test code = 752) RED CELL DISTRIBUTION WIDTH 22.4 % 11.6-14.4 H (BEAKER) (test code = 412) PLATELET COUNT (BEAKER) (test 135 K/CU MM 150-450 L code = 756) MEAN PLATELET VOLUME (BEAKER) 10.0 fL 9.4-12.4 (test code = 754) NUCLEATED RED BLOOD CELLS 1 /100 WBC 0-0 H (BEAKER) (test code = 413) BASIC METABOLIC [id number] 02:50:00 Test Item Value Reference Range Interpretation Comments SODIUM (BEAKER) 137 meq/L 136-145 (test code = 381) POTASSIUM (BEAKER) 3.1 meq/L 3.5-5.1 L (test code = 379) CHLORIDE (BEAKER) 104 meq/L 98-107 (test code = 382) CO2 (BEAKER) (test 24 meq/L 22-29 code = 355) BLOOD UREA NITROGEN 3 mg/dL 7-21 L (BEAKER) (test code = 354) CREATININE (BEAKER) 0.50 mg/dL 0.57-1.25 L (test code = 358) GLUCOSE RANDOM 124 mg/dL 70-105 H (BEAKER) (test code = 652) CALCIUM (BEAKER) 6.5 mg/dL 8.4-10.2 L (test code = 697) EGFR (BEAKER) (test 193 mL/min/1.73 ESTIM ATED GFR IS code = 1092) sq m NOT ACCURATE CREATININE CLEARANCE IN PREDICTING GLOMERULAR FILTRATION RATE . ESTIMATED GFR I S NOT APPLICABLE FOR DIALYSIS PATIEN TS. [id number] 02:14:00 Test Item Value Reference Range Interpretation Comments PHOSPHORUS (BEAKER) (test code = 2.6 mg/dL 2.3-4.7 604) [id number] 02:14:00 Test Item Value Reference Range Interpretation Comments MAGNESIUM (BEAKER) (test code = 1.9 mg/dL 1.6-2.6 627) HEMOGLOBIN AND [id number] 01:13:00 Test Item Value Reference Range Interpretation Comments HEMOGLOBIN (BEAKER) (test code = 8.1 GM/DL 13.7-17.5 L 410) HEMATOCRIT (BEAKER) (test code = 23.8 % 40.1-51.0 L 411) POCT-GLUCOSE [id number] 20:56:00 Test Item Value Reference Range Interpretation Comments POC-GLUCOSE METER 105 mg/dL 70-110 TESTED AT [facility] 67[address] (BEAKER) (test code = [place] 1538) [id number] COMPREHENSIVE METABOLIC [id number] 14:51:00 Test Item Value Reference Range Interpretation Comments TOTAL PROTEIN 6.0 gm/dL 6.0-8.3 (BEAKER) (test code = 770) ALBUMIN (BEAKER) 2.8 g/dL 3.5-5.0 L (test code = 1145) ALKALINE PHOSPHATASE 489 U/L 40-150 H (BEAKER) (test code = 346) BILIRUBIN TOTAL 2.7 mg/dL 0.2-1.2 H (BEAKER) (test code = 377) SODIUM (BEAKER) (test 141 meq/L 136-145 code = 381) POTASSIUM (BEAKER) 2.6 meq/L 3.5-5.1 LL (test code = 379) CHLORIDE (BEAKER) 103 meq/L 98-107 (test code = 382) CO2 (BEAKER) (test 28 meq/L 22-29 code = 355) BLOOD UREA NITROGEN 5 mg/dL 7-21 L (BEAKER) (test code = 354) CREATININE (BEAKER) 0.54 mg/dL 0.57-1.25 L (test code = 358) GLUCOSE RANDOM 88 mg/dL 70-105 (BEAKER) (test code = 652) CALCIUM (BEAKER) 7.1 mg/dL 8.4-10.2 L (test code = 697) AST (SGOT) (BEAKER) 168 U/L 5-34 H (test code = 353) ALT (SGPT) (BEAKER) 61 U/L 6-55 H (test code = 347) EGFR (BEAKER) (test 176 ESTIMATE D GFR IS code = 1092) mL/min/1.73 sq NOT ACCURA TE m CREATININE CLEARANCE IN PREDICTING GLOMERULAR FILTRATION RATE . ESTIMATED GFR I S NOT APPLICABLE FOR DIALYSIS PATIEN TS. Specimen slightly [id number] 14:51:00 Test Item Value Reference Range Interpretation Comments PHOSPHORUS (BEAKER) (test code = 0.9 mg/dL 2.3-4.7 LL 604) [id number] 14:41:00 Test Item Value Reference Range Interpretation Comments MAGNESIUM (BEAKER) (test code = 1.3 mg/dL 1.6-2.6 L 627) [id number] 14:41:00 Test Item Value Reference Range Interpretation Comments AMYLASE (BEAKER) (test code = 349) 160 U/L 25-125 H Specimen slightly ictericLACTATE DEHYDROGENASE (LDH)2019-02-12 14:41:00 Test Item Value Reference Range Interpretation Comments LACTATE DEHYDROGENASE (BEAKER) (test 572 U/L 125-220 H code = 635) [id number] 14:41:00 Test Item Value Reference Range Interpretation Comments LIPASE (BEAKER) (test code = 749) 562 U/L 8-78 H Specimen slightly [id number] 14:39:00 Test Item Value Reference Range Interpretation Comments ETHANOL (BEAKER) (test code = 400) < mg/dL <=10 [id number] 14:27:00 Test Item Value Reference Range Interpretation Comments D-DIMER QUANTITATIVE (BEAKER) 4.23 MG/L FEU <0.50 H (test code = 671) Intended Use: The D-Dimer Assay can be used to aid in the diagnosis of Deep Vein Thrombosis (DVT) and Pulmonary Embolism Disease (PED).In patients with low pre- test probability, various studies concerning STA Liatest D-dimer test have reported that with a cutoff value of 0.50 MG/L FEU, the Negative Predictive Value (NPV) regarding the exclusion of thrombosis is within 95-100% range.LACTIC ACID, [id number] 14:25:00 Test Item Value Reference Range Interpretation Comments LACTATE BLOOD VENOUS (2) (BEAKER) 1.5 mmol/L 0.5-2.2 (test code = 2872) [id number] 14:21:00 Test Item Value Reference Range Interpretation Comments AMMONIA (BEAKER) (test code = 348) 50 mol/L 18-72 [id number] 14:17:00 Test Item Value Reference Range Interpretation Comments PROTIME (BEAKER) (test code = 17.8 seconds 11.9-14.2 H 759) INR (BEAKER) (test code = 370) 1.6 <=5.9 PARTIAL THROMBOPLASTIN TIME 34.9 seconds 22.5-36.0 (BEAKER) (test code = 760) Effective 12/11/2018: PT Reference Range ChangeNew: 11.9-14.2 Previous: 11.7- 14.7RECOMMENDED COUMADIN/WARFARIN INR THERAPY RANGESSTANDARD DOSE: 2.0-3.0 Includes: PROPHYLAXIS for venous thrombosis, systemic embolization; TREATMENT for venous thrombosis and/or pulmonary embolus.HIGH RISK: Target INR is2.5-3.5 for patients wiht mechanical heart valves.[id number] 14:17:00 Test Item Value Reference Range Interpretation Comments FIBRINOGEN LEVEL (BEAKER) (test 304 mg/dl 225-434 code = 658) CBC (HEMOGRAM ONLY)2019-02-12 14:13:00 Test Item Value Reference Range Interpretation Comments WHITE BLOOD CELL COUNT 5.0 K/ L 3.5-10.5 (BEAKER) (test code = 775) RED BLOOD CELL COUNT 2.64 M/ L 4.63-6.08 L (BEAKER) (test code = 761) HEMOGLOBIN (BEAKER) 9.0 GM/DL 13.7-17.5 L (test code = 410) HEMATOCRIT (BEAKER) 27.0 % 40.1-51.0 L (test code = 411) MEAN CORPUSCULAR 102.3 fL 79.0-92.2 H VOLUME (BEAKER) (test code = 753) MEAN CORPUSCULAR 34.1 pg 25.7-32.2 H HEMOGLOBIN (BEAKER) (test code = 751) MEAN CORPUSCULAR 33.3 GM/DL 32.3-36.5 HEMOGLOBIN CONC (BEAKER) (test code = 752) RED CELL DISTRIBUTION % 11.6-14.4 Unable to report due WIDTH (BEAKER) (test to [facility] Platelet code = 412) population distribution. PLATELET COUNT 146 K/CU MM 150-450 L (BEAKER) (test code = 756) MEAN PLATELET VOLUME 10.0 fL 9.4-12.4 (BEAKER) (test code = 754) NUCLEATED RED BLOOD 1 /100 WBC 0-0 H CELLS (BEAKER) (test code = 413) CBC W/PLT COUNT & AUTO [id number] 05:36:00 Test Item Value Reference Range Interpretation Comments WHITE BLOOD CELL COUNT (BEAKER) 3.1 K/ L 3.5-10.5 L (test code = 775) RED BLOOD CELL COUNT (BEAKER) 3.39 M/ L 4.63-6.08 L (test code = 761) HEMOGLOBIN (BEAKER) (test code = 11.5 GM/DL 13.7-17.5 L 410) HEMATOCRIT (BEAKER) (test code = 33.7 % 40.1-51.0 L 411) MEAN CORPUSCULAR VOLUME (BEAKER) 99.4 fL 79.0-92.2 H (test code = 753) MEAN CORPUSCULAR HEMOGLOBIN 33.9 pg 25.7-32.2 H (BEAKER) (test code = 751) MEAN CORPUSCULAR HEMOGLOBIN CONC 34.1 GM/DL 32.3-36.5 (BEAKER) (test code = 752) RED CELL DISTRIBUTION WIDTH 12.8 % 11.6-14.4 (BEAKER) (test code = 412) PLATELET COUNT (BEAKER) (test 130 K/CU MM 150-450 L code = 756) MEAN PLATELET VOLUME (BEAKER) 10.4 fL 9.4-12.4 (test code = 754) NUCLEATED RED BLOOD CELLS 0 /100 WBC 0-0 (BEAKER) (test code = 413) NEUTROPHILS RELATIVE PERCENT 51 % (BEAKER) (test code = 429) LYMPHOCYTES RELATIVE PERCENT 31 % (BEAKER) (test code = 430) MONOCYTES RELATIVE PERCENT 12 % (BEAKER) (test code = 431) EOSINOPHILS RELATIVE PERCENT 4 % (BEAKER) (test code = 432) BASOPHILS RELATIVE PERCENT 1 % (BEAKER) (test code = 437) NEUTROPHILS ABSOLUTE COUNT 1.61 K/ L 1.78-5.38 L (BEAKER) (test code = 670) LYMPHOCYTES ABSOLUTE COUNT 0.98 K/ L 1.32-3.57 L (BEAKER) (test code = 414) MONOCYTES ABSOLUTE COUNT (BEAKER) 0.38 K/ L 0.30-0.82 (test code = 415) EOSINOPHILS ABSOLUTE COUNT 0.11 K/ L 0.04-0.54 (BEAKER) (test code = 416) BASOPHILS ABSOLUTE COUNT (BEAKER) 0.04 K/ L 0.01-0.08 (test code = 417) IMMATURE GRANULOCYTES-RELATIVE 1 % 0-1 PERCENT (BEAKER) (test code = 2801) MR, ABDOMEN, [id number] 13:31:00FINAL REPORT MRCP, MRI of abdomen without [...] [place] Verified Date/Time: 12/12/2018 13:31:00 Reading Location: [facility] B1 C013Y CT Body Reading Room AS B. FINAN CENTEROMPREHENSIVE METABOLIC [id number] 09:56:00 Test Item Value Reference Range Interpretation Comments TOTAL PROTEIN 5.5 gm/dL 6.0-8.3 L (BEAKER) (test code = 770) ALBUMIN (BEAKER) 3.1 g/dL 3.5-5.0 L (test code = 1145) ALKALINE PHOSPHATASE 116 U/L 40-150 (BEAKER) (test code = 346) BILIRUBIN TOTAL 1.9 mg/dL 0.2-1.2 H (BEAKER) (test code = 377) SODIUM (BEAKER) (test 139 meq/L 136-145 code = 381) POTASSIUM (BEAKER) 3.0 meq/L 3.5-5.1 L (test code = 379) CHLORIDE (BEAKER) 107 meq/L 98-107 (test code = 382) CO2 (BEAKER) (test 23 meq/L 22-29 code = 355) BLOOD UREA NITROGEN 4 mg/dL 7-21 L (BEAKER) (test code = 354) CREATININE (BEAKER) 0.56 mg/dL 0.57-1.25 L (test code = 358) GLUCOSE RANDOM 116 mg/dL 70-105 H (BEAKER) (test code = 652) CALCIUM (BEAKER) 7.4 mg/dL 8.4-10.2 L (test code = 697) AST (SGOT) (BEAKER) 297 U/L 5-34 H (test code = 353) ALT (SGPT) (BEAKER) 173 U/L 6-55 H (test code = 347) EGFR (BEAKER) (test 169 ESTIMATE D GFR IS code = 1092) mL/min/1.73 sq NOT ACCURA TE m CREATININE CLEARANCE IN PREDICTING GLOMERULAR FILTRATION RATE . ESTIMATED GFR I S NOT APPLICABLE FOR DIALYSIS PATIEN TS. CBC W/PLT COUNT & AUTO [id number] 04:42:00 Test Item Value Reference Range Interpretation Comments WHITE BLOOD CELL COUNT (BEAKER) 3.1 K/ L 3.5-10.5 L (test code = 775) RED BLOOD CELL COUNT (BEAKER) 3.09 M/ L 4.63-6.08 L (test code = 761) HEMOGLOBIN (BEAKER) (test code = 10.7 GM/DL 13.7-17.5 L 410) HEMATOCRIT (BEAKER) (test code = 30.5 % 40.1-51.0 L 411) MEAN CORPUSCULAR VOLUME (BEAKER) 98.7 fL 79.0-92.2 H (test code = 753) MEAN CORPUSCULAR HEMOGLOBIN 34.6 pg 25.7-32.2 H (BEAKER) (test code = 751) MEAN CORPUSCULAR HEMOGLOBIN CONC 35.1 GM/DL 32.3-36.5 (BEAKER) (test code = 752) RED CELL DISTRIBUTION WIDTH 12.4 % 11.6-14.4 (BEAKER) (test code = 412) PLATELET COUNT (BEAKER) (test code 99 K/CU MM 150-450 L = 756) MEAN PLATELET VOLUME (BEAKER) 11.0 fL 9.4-12.4 (test code = 754) NUCLEATED RED BLOOD CELLS (BEAKER) 0 /100 WBC 0-0 (test code = 413) NEUTROPHILS RELATIVE PERCENT 60 % (BEAKER) (test code = 429) LYMPHOCYTES RELATIVE PERCENT 26 % (BEAKER) (test code = 430) MONOCYTES RELATIVE PERCENT 11 % (BEAKER) (test code = 431) EOSINOPHILS RELATIVE PERCENT 2 % (BEAKER) (test code = 432) BASOPHILS RELATIVE PERCENT 1 % (BEAKER) (test code = 437) NEUTROPHILS ABSOLUTE COUNT 1.84 K/ L 1.78-5.38 (BEAKER) (test code = 670) LYMPHOCYTES ABSOLUTE COUNT 0.81 K/ L 1.32-3.57 L (BEAKER) (test code = 414) MONOCYTES ABSOLUTE COUNT (BEAKER) 0.34 K/ L 0.30-0.82 (test code = 415) EOSINOPHILS ABSOLUTE COUNT 0.06 K/ L 0.04-0.54 (BEAKER) (test code = 416) BASOPHILS ABSOLUTE COUNT (BEAKER) 0.03 K/ L 0.01-0.08 (test code = 417) IMMATURE GRANULOCYTES-RELATIVE 0 % 0-1 PERCENT (BEAKER) (test code = 2801) FL, ESOPH, SWALLOW FUNCTION, WITH CINE OR [id number] 12:02:00Reason for exam:->pneumomediastinum, rule out esophageal perforationFINAL [...] stomach. IMPRESSION:No evidence of esophageal leak. Signed: Bernie Gruber MDReport Verified Date/Time: 12/11/2018 12:02:17 Reading Location: [address] Consult Reading Room BASI METABOLIC PANEL 2018-12-11 07:31:00 Test Item Value Reference Range Interpretation Comments SODIUM (BEAKER) 139 meq/L 136-145 (test code = 381) POTASSIUM (BEAKER) 3.4 meq/L 3.5-5.1 L Specimen slightly (test code = 379) hemolyzed CHLORIDE (BEAKER) 103 meq/L 98-107 (test code = 382) CO2 (BEAKER) (test 20 meq/L 22-29 L code = 355) BLOOD UREA NITROGEN 18 mg/dL 7-21 (BEAKER) (test code = 354) CREATININE (BEAKER) 0.73 mg/dL 0.57-1.25 Specimen slightly (test code = 358) hemolyzed GLUCOSE RANDOM 67 mg/dL 70-105 L (BEAKER) (test code = 652) CALCIUM (BEAKER) 8.6 mg/dL 8.4-10.2 (test code = 697) EGFR (BEAKER) (test 125 mL/min/1.73 ESTIM ATED GFR IS code = 1092) sq m NOT ACCURATE CREATININE CLEARANCE IN PREDICTING GLOMERULAR FILTRATION RATE . ESTIMATED GFR I S NOT APPLICABLE FOR DIALYSIS PATIEN TS. CBC W/PLT COUNT & AUTO [id number] 07:12:00 Test Item Value Reference Range Interpretation Comments WHITE BLOOD CELL COUNT (BEAKER) 4.6 K/ L 3.5-10.5 (test code = 775) RED BLOOD CELL COUNT (BEAKER) 3.19 M/ L 4.63-6.08 L (test code = 761) HEMOGLOBIN (BEAKER) (test code = 11.1 GM/DL 13.7-17.5 L 410) HEMATOCRIT (BEAKER) (test code = 31.0 % 40.1-51.0 L 411) MEAN CORPUSCULAR VOLUME (BEAKER) 97.2 fL 79.0-92.2 H (test code = 753) MEAN CORPUSCULAR HEMOGLOBIN 34.8 pg 25.7-32.2 H (BEAKER) (test code = 751) MEAN CORPUSCULAR HEMOGLOBIN CONC 35.8 GM/DL 32.3-36.5 (BEAKER) (test code = 752) RED CELL DISTRIBUTION WIDTH 13.0 % 11.6-14.4 (BEAKER) (test code = 412) PLATELET COUNT (BEAKER) (test 103 K/CU MM 150-450 L code = 756) MEAN PLATELET VOLUME (BEAKER) 11.0 fL 9.4-12.4 (test code = 754) NUCLEATED RED BLOOD CELLS 0 /100 WBC 0-0 (BEAKER) (test code = 413) NEUTROPHILS RELATIVE PERCENT 73 % (BEAKER) (test code = 429) LYMPHOCYTES RELATIVE PERCENT 16 % (BEAKER) (test code = 430) MONOCYTES RELATIVE PERCENT 9 % (BEAKER) (test code = 431) EOSINOPHILS RELATIVE PERCENT 1 % (BEAKER) (test code = 432) BASOPHILS RELATIVE PERCENT 0 % (BEAKER) (test code = 437) NEUTROPHILS ABSOLUTE COUNT 3.36 K/ L 1.78-5.38 (BEAKER) (test code = 670) LYMPHOCYTES ABSOLUTE COUNT 0.75 K/ L 1.32-3.57 L (BEAKER) (test code = 414) MONOCYTES ABSOLUTE COUNT (BEAKER) 0.41 K/ L 0.30-0.82 (test code = 415) EOSINOPHILS ABSOLUTE COUNT 0.04 K/ L 0.04-0.54 (BEAKER) (test code = 416) BASOPHILS ABSOLUTE COUNT (BEAKER) 0.02 K/ L 0.01-0.08 (test code = 417) IMMATURE GRANULOCYTES-RELATIVE 1 % 0-1 PERCENT (BEAKER) (test code = 2801) RAD, CHEST, 1 VIEW, NON [id number] 20:13:00Reason for exam:- >pneumomediastinumShould this be performed [...] There is no acute bony abnormality. Signed: Fahad Mcmanus MDReport Verified Date/Time: 12/10/2018 20:13:39 Reading Location: [address] Reading Room [id number] 19:12:00 Test Item Value Reference Range Interpretation Comments MAGNESIUM (BEAKER) 1.8 mg/dL 1.6-2.6 Specimen slightly (test code = 627) hemolyzed COMPREHENSIVE METABOLIC [id number] 19:12:00 Test Item Value Reference Range Interpretation Comments TOTAL PROTEIN 6.3 gm/dL 6.0-8.3 Specimen sligh tly (BEAKER) (test code = hemoly zed 770) ALBUMIN (BEAKER) 3.7 g/dL 3.5-5.0 Specimen sl ightly (test code = 1145) hemolyzed ALKALINE PHOSPHATASE 129 U/L 40-150 (BEAKER) (test code = 346) BILIRUBIN TOTAL 2.9 mg/dL 0.2-1.2 H Specimen sli ghtly (BEAKER) (test code = hemoly zed 377) SODIUM (BEAKER) (test 137 meq/L 136-145 code = 381) POTASSIUM (BEAKER) 2.7 meq/L 3.5-5.1 L Specimen slightly (test code = 379) hemolyzed CHLORIDE (BEAKER) 99 meq/L 98-107 (test code = 382) CO2 (BEAKER) (test 23 meq/L 22-29 code = 355) BLOOD UREA NITROGEN 22 mg/dL 7-21 H (BEAKER) (test code = 354) CREATININE (BEAKER) 1.28 mg/dL 0.57-1.25 H Specimen slightly (test code = 358) hemolyzed GLUCOSE RANDOM 78 mg/dL 70-105 (BEAKER) (test code = 652) CALCIUM (BEAKER) 8.5 mg/dL 8.4-10.2 (test code = 697) AST (SGOT) (BEAKER) 502 U/L 5-34 H Specimen slightly (test code = 353) hemolyzed ALT (SGPT) (BEAKER) 225 U/L 6-55 H Specimen slightly (test code = 347) hemolyzed EGFR (BEAKER) (test 65 mL/min/1.73 ESTIMA KATHRYN GFR IS code = 1092) sq m NOT ACCURATE CREATININE CLEARANCE IN PREDICTING GLOMERULAR FILTRATION RATE . ESTIMATED GFR I S NOT APPLICABLE FOR DIALYSIS PATIEN TS. Specimen slightly ictericPROTHROMBIN [id number] 18:53:00 Test Item Value Reference Range Interpretation Comments PROTIME (BEAKER) (test code = 15.8 seconds 11.7-14.7 H 759) INR (BEAKER) (test code = 370) 1.3 <=5.9 RECOMMENDED COUMADIN/WARFARIN INR THERAPY RANGESSTANDARD DOSE: 2.0 - 3.0 Includes: PROPHYLAXIS forvenous thrombosis, systemic embolization; TREATMENT for venous thrombosis and/or pulmonary embolus.HIGH RISK: Target INR is 2.5-3.5 for patients with mechanical heart valves.CBC W/PLT COUNT & AUTO DIFFERENTIAL 2018-12-10 18:49:00 Test Item Value Reference Range Interpretation Comments WHITE BLOOD CELL COUNT (BEAKER) 6.0 K/ L 3.5-10.5 (test code = 775) RED BLOOD CELL COUNT (BEAKER) 3.44 M/ L 4.63-6.08 L (test code = 761) HEMOGLOBIN (BEAKER) (test code = 11.6 GM/DL 13.7-17.5 L 410) HEMATOCRIT (BEAKER) (test code = 34.1 % 40.1-51.0 L 411) MEAN CORPUSCULAR VOLUME (BEAKER) 99.1 fL 79.0-92.2 H (test code = 753) MEAN CORPUSCULAR HEMOGLOBIN 33.7 pg 25.7-32.2 H (BEAKER) (test code = 751) MEAN CORPUSCULAR HEMOGLOBIN CONC 34.0 GM/DL 32.3-36.5 (BEAKER) (test code = 752) RED CELL DISTRIBUTION WIDTH 13.1 % 11.6-14.4 (BEAKER) (test code = 412) PLATELET COUNT (BEAKER) (test 109 K/CU MM 150-450 L code = 756) MEAN PLATELET VOLUME (BEAKER) 11.0 fL 9.4-12.4 (test code = 754) NUCLEATED RED BLOOD CELLS 0 /100 WBC 0-0 (BEAKER) (test code = 413) NEUTROPHILS RELATIVE PERCENT 81 % (BEAKER) (test code = 429) LYMPHOCYTES RELATIVE PERCENT 12 % (BEAKER) (test code = 430) MONOCYTES RELATIVE PERCENT 7 % (BEAKER) (test code = 431) EOSINOPHILS RELATIVE PERCENT 0 % (BEAKER) (test code = 432) BASOPHILS RELATIVE PERCENT 0 % (BEAKER) (test code = 437) NEUTROPHILS ABSOLUTE COUNT 4.84 K/ L 1.78-5.38 (BEAKER) (test code = 670) LYMPHOCYTES ABSOLUTE COUNT 0.72 K/ L 1.32-3.57 L (BEAKER) (test code = 414) MONOCYTES ABSOLUTE COUNT (BEAKER) 0.41 K/ L 0.30-0.82 (test code = 415) EOSINOPHILS ABSOLUTE COUNT 0.01 K/ L 0.04-0.54 L (BEAKER) (test code = 416) BASOPHILS ABSOLUTE COUNT (BEAKER) 0.02 K/ L 0.01-0.08 (test code = 417) IMMATURE GRANULOCYTES-RELATIVE 0 % 0-1 PERCENT (BEAKER) (test code = 2801) BLOOD [id number] 20:01:00 Test Item Value Reference Range Interpretation Comments CULTURE (BEAKER) (test No growth in 5 days code = 1095) BLOOD [id number] 20:01:00 Test Item Value Reference Range Interpretation Comments CULTURE (BEAKER) (test No growth in 5 days code = 1095) RAD, CHEST, 1 VIEW, NON [id number] 13:13:00Reason for exam:->evalute for pneumoniaShould this be performed at the bedside?->YesAddendum BeginsREPORT STATUS:A Addendum:Clinical diagnosis alcohol withdrawal syndrome, electrolyte disturbances, elevated liver function tests, pneumonia, Signed: Marilu Sharpeshan Verified Date/Time: 11/01/2018 13:13:23 Reading Location: [address] Consult Reading RoomAddendum EndsFINAL REPORT Chest [...] Sharpe Verified Date/Time: 10/28/2018 15:36:38 Reading Location: [address] Consult Reading Room U/S, ABDOMINAL, WITH [id number] 10:43:00Reason for exam:->evaluate for portal hypertension, cirrhosis, [...] MDReport Verified Date/Time: 10/31/2018 10:43:58 Reading Location: [address] Ultrasound Reading Room COMPREHENSIVE METABOLIC [id number] 06:57:00 Test Item Value Reference Range Interpretation Comments TOTAL PROTEIN 6.3 gm/dL 6.0-8.3 (BEAKER) (test code = 770) ALBUMIN (BEAKER) 3.4 g/dL 3.5-5.0 L (test code = 1145) ALKALINE PHOSPHATASE 165 U/L 40-150 H (BEAKER) (test code = 346) BILIRUBIN TOTAL 0.6 mg/dL 0.2-1.2 (BEAKER) (test code = 377) SODIUM (BEAKER) (test 140 meq/L 136-145 code = 381) POTASSIUM (BEAKER) 3.6 meq/L 3.5-5.1 (test code = 379) CHLORIDE (BEAKER) 102 meq/L 98-107 (test code = 382) CO2 (BEAKER) (test 29 meq/L 22-29 code = 355) BLOOD UREA NITROGEN 3 mg/dL 7-21 L (BEAKER) (test code = 354) CREATININE (BEAKER) 0.55 mg/dL 0.57-1.25 L (test code = 358) GLUCOSE RANDOM 89 mg/dL 70-105 (BEAKER) (test code = 652) CALCIUM (BEAKER) 9.2 mg/dL 8.4-10.2 (test code = 697) AST (SGOT) (BEAKER) 184 U/L 5-34 H (test code = 353) ALT (SGPT) (BEAKER) 156 U/L 6-55 H (test code = 347) EGFR (BEAKER) (test 173 ESTIMATE D GFR IS code = 1092) mL/min/1.73 sq NOT ACCURA TE m CREATININE CLEARANCE IN PREDICTING GLOMERULAR FILTRATION RATE . ESTIMATED GFR I S NOT APPLICABLE FOR DIALYSIS PATIEN TS. HEMOGLOBIN [id number] 09:30:00 Test Item Value Reference Range Interpretation Comments HEMOGLOBIN A1C (BEAKER) (test code = 4.9 % 4.3-6.1 368) COMPREHENSIVE METABOLIC [id number] 05:17:00 Test Item Value Reference Range Interpretation Comments TOTAL PROTEIN 6.5 gm/dL 6.0-8.3 (BEAKER) (test code = 770) ALBUMIN (BEAKER) 3.6 g/dL 3.5-5.0 (test code = 1145) ALKALINE PHOSPHATASE 170 U/L 40-150 H (BEAKER) (test code = 346) BILIRUBIN TOTAL 0.9 mg/dL 0.2-1.2 (BEAKER) (test code = 377) SODIUM (BEAKER) (test 141 meq/L 136-145 code = 381) POTASSIUM (BEAKER) 3.5 meq/L 3.5-5.1 (test code = 379) CHLORIDE (BEAKER) 104 meq/L 98-107 (test code = 382) CO2 (BEAKER) (test 26 meq/L 22-29 code = 355) BLOOD UREA NITROGEN 4 mg/dL 7-21 L (BEAKER) (test code = 354) CREATININE (BEAKER) 0.55 mg/dL 0.57-1.25 L (test code = 358) GLUCOSE RANDOM 89 mg/dL 70-105 (BEAKER) (test code = 652) CALCIUM (BEAKER) 9.3 mg/dL 8.4-10.2 (test code = 697) AST (SGOT) (BEAKER) 167 U/L 5-34 H (test code = 353) ALT (SGPT) (BEAKER) 156 U/L 6-55 H (test code = 347) EGFR (BEAKER) (test 173 ESTIMATE D GFR IS code = 1092) mL/min/1.73 sq NOT ACCURA TE m CREATININE CLEARANCE IN PREDICTING GLOMERULAR FILTRATION RATE . ESTIMATED GFR I S NOT APPLICABLE FOR DIALYSIS PATIEN TS. CBC W/PLT COUNT & AUTO [id number] 04:53:00 Test Item Value Reference Range Interpretation Comments WHITE BLOOD CELL COUNT (BEAKER) 3.4 K/ L 3.5-10.5 L (test code = 775) RED BLOOD CELL COUNT (BEAKER) 3.45 M/ L 4.63-6.08 L (test code = 761) HEMOGLOBIN (BEAKER) (test code = 11.8 GM/DL 13.7-17.5 L 410) HEMATOCRIT (BEAKER) (test code = 34.4 % 40.1-51.0 L 411) MEAN CORPUSCULAR VOLUME (BEAKER) 99.7 fL 79.0-92.2 H (test code = 753) MEAN CORPUSCULAR HEMOGLOBIN 34.2 pg 25.7-32.2 H (BEAKER) (test code = 751) MEAN CORPUSCULAR HEMOGLOBIN CONC 34.3 GM/DL 32.3-36.5 (BEAKER) (test code = 752) RED CELL DISTRIBUTION WIDTH 12.2 % 11.6-14.4 (BEAKER) (test code = 412) PLATELET COUNT (BEAKER) (test 175 K/CU MM 150-450 code = 756) MEAN PLATELET VOLUME (BEAKER) 10.3 fL 9.4-12.4 (test code = 754) NUCLEATED RED BLOOD CELLS 0 /100 WBC 0-0 (BEAKER) (test code = 413) NEUTROPHILS RELATIVE PERCENT 55 % (BEAKER) (test code = 429) LYMPHOCYTES RELATIVE PERCENT 30 % (BEAKER) (test code = 430) MONOCYTES RELATIVE PERCENT 11 % (BEAKER) (test code = 431) EOSINOPHILS RELATIVE PERCENT 3 % (BEAKER) (test code = 432) BASOPHILS RELATIVE PERCENT 1 % (BEAKER) (test code = 437) NEUTROPHILS ABSOLUTE COUNT 1.89 K/ L 1.78-5.38 (BEAKER) (test code = 670) LYMPHOCYTES ABSOLUTE COUNT 1.03 K/ L 1.32-3.57 L (BEAKER) (test code = 414) MONOCYTES ABSOLUTE COUNT (BEAKER) 0.39 K/ L 0.30-0.82 (test code = 415) EOSINOPHILS ABSOLUTE COUNT 0.09 K/ L 0.04-0.54 (BEAKER) (test code = 416) BASOPHILS ABSOLUTE COUNT (BEAKER) 0.03 K/ L 0.01-0.08 (test code = 417) IMMATURE GRANULOCYTES-RELATIVE 0 % 0-1 PERCENT (BEAKER) (test code = 2801) LIPID [id number] 17:30:00 Test Item Value Reference Range Interpretation Comments TRIGLYCERIDES (BEAKER) (test code = 90 mg/dL 540) CHOLESTEROL (BEAKER) (test code = 140 mg/dL 631) HDL CHOLESTEROL (BEAKER) (test code 37 mg/dL = 976) LDL CHOLESTEROL CALCULATED (BEAKER) 85 mg/dL (test code = 633) Triglyceride Reference Range: Low Risk <150 Borderline 150-199 High Risk 200-499 Very High Risk >=500Cholesterol Reference Range: Low Risk <200 Borderline 200-239 High Risk >240HDL Cholesterol Reference Range: Low Risk >=60 High Risk <40LDL Cholesterol Reference Range: Optimal <100 Near Optimal 100-129 Borderline 130-159 High 160-189 Very High >=190HEPATITIS C PCR, [id number] 14:57:00 Test Item Value Reference Range Interpretation Comments HCV RESULT COMPONENT HCV RNA not detected HCV RNA not detected (BEAKER) (test code = 2699) This test uses a Real-Time Polymerase Chain Reaction (RT-PCR) methodology and was performed using MARIANO Ampliprep/MARIANO TaqMan HCV test kit version 2.0 ([employer]).Reportable range for this assay is [...] Concepcioneport Verified Date/Time: 10/29/2018 14:17:17 Reading Location: [facility] Radiology Reading Room RPR 2018-10-29 13:28:00 Test Item Value Reference Range Interpretation Comments RPR SCREEN (BEAKER) (test code = Nonreactive Nonreactive 420) [id number] 05:12:00 Test Item Value Reference Range Interpretation Comments PHOSPHORUS (BEAKER) (test code = 2.5 mg/dL 2.3-4.7 604) COMPREHENSIVE METABOLIC [id number] 05:12:00 Test Item Value Reference Range Interpretation Comments TOTAL PROTEIN 6.9 gm/dL 6.0-8.3 (BEAKER) (test code = 770) ALBUMIN (BEAKER) 3.9 g/dL 3.5-5.0 (test code = 1145) ALKALINE PHOSPHATASE 200 U/L 40-150 H (BEAKER) (test code = 346) BILIRUBIN TOTAL 1.2 mg/dL 0.2-1.2 (BEAKER) (test code = 377) SODIUM (BEAKER) (test 137 meq/L 136-145 code = 381) POTASSIUM (BEAKER) 3.3 meq/L 3.5-5.1 L (test code = 379) CHLORIDE (BEAKER) 97 meq/L 98-107 L (test code = 382) CO2 (BEAKER) (test 27 meq/L 22-29 code = 355) BLOOD UREA NITROGEN 3 mg/dL 7-21 L (BEAKER) (test code = 354) CREATININE (BEAKER) 0.57 mg/dL 0.57-1.25 (test code = 358) GLUCOSE RANDOM 108 mg/dL 70-105 H (BEAKER) (test code = 652) CALCIUM (BEAKER) 9.4 mg/dL 8.4-10.2 (test code = 697) AST (SGOT) (BEAKER) 263 U/L 5-34 H (test code = 353) ALT (SGPT) (BEAKER) 215 U/L 6-55 H (test code = 347) EGFR (BEAKER) (test 166 ESTIMATE D GFR IS code = 1092) mL/min/1.73 sq NOT ACCURA TE m CREATININE CLEARANCE IN PREDICTING GLOMERULAR FILTRATION RATE . ESTIMATED GFR I S NOT APPLICABLE FOR DIALYSIS PATIEN TS. PROTHROMBIN [id number] 04:53:00 Test Item Value Reference Range Interpretation Comments PROTIME (BEAKER) (test code = 16.0 seconds 11.7-14.7 H 759) INR (BEAKER) (test code = 370) 1.3 <=5.9 RECOMMENDED COUMADIN/WARFARIN INR THERAPY RANGESSTANDARD DOSE: 2.0 - 3.0 Includes: PROPHYLAXIS forvenous thrombosis, systemic embolization; TREATMENT for venous thrombosis and/or pulmonary embolus.HIGH RISK: Target INR is 2.5-3.5 for patients with mechanical heart valves.URINALYSIS W/ REFLEX URINE CULTURE 2018-10-28 18:43:00 Test Item Value Reference Range Interpretation Comments COLOR (BEAKER) (test code = 470) Yellow CLARITY (BEAKER) (test code = 469) Clear SPECIFIC GRAVITY UA (BEAKER) (test 1.007 1.001-1.035 code = 468) PH UA (BEAKER) (test code = 467) 7.5 5.0-8.0 PROTEIN UA (BEAKER) (test code = 20 mg/dL Negative A 464) GLUCOSE UA (BEAKER) (test code = Negative Negative 365) KETONES UA (BEAKER) (test code = 20 mg/dL Negative A 371) BILIRUBIN UA (BEAKER) (test code = Negative Negative 462) BLOOD UA (BEAKER) (test code = 461) Trace Negative A NITRITE UA (BEAKER) (test code = Negative Negative 465) LEUKOCYTE ESTERASE UA (BEAKER) Negative Negative (test code = 466) UROBILINOGEN UA (BEAKER) (test code 2.0 mg/dL 0.2-1.0 H = 463) RBC UA (BEAKER) (test code = 519) 3 /HPF WBC UA (BEAKER) (test code = 520) < /HPF MUCUS (BEAKER) (test code = 1574) Rare SOURCE(BEAKER) (test code = 2795) VITAMIN B12 AND [id number] 15:08:00 Test Item Value Reference Range Interpretation Comments VITAMIN B12 (BEAKER) (test code = 1678 pg/mL 213-816 H 774) FOLATE (BEAKER) (test code = 362) 19.4 ng/mL >=7.0 [id number] 14:48:00 Test Item Value Reference Range Interpretation Comments FERRITIN (BEAKER) (test code = 1698 ng/mL 5-275 H 361) IRON, TIBC, % SAT. (WITHOUT FERRITIN)2018-10-28 13:26:00 Test Item Value Reference Range Interpretation Comments IRON (BEAKER) (test code = 547) 44.0 ug/dL 40.0-160.0 TOTAL IRON BINDING CAPACITY 186 ug/dL 250-450 L (BEAKER) (test code = 769) IRON % SATURATION (2) (BEAKER) 24 % 20-55 (test code = 2590) HEPATITIS B SURFACE [id number] 13:26:00 Test Item Value Reference Range Interpretation Comments HEPATITIS B SURFACE ANTIGEN (2) Nonreactive Nonreactive (BEAKER) (test code = 2585) HEPATITIS C [id number] 13:26:00 Test Item Value Reference Range Interpretation Comments HEPATITIS C ANTIBODY (BEAKER) Nonreactive Nonreactive (test code = 367) HIV-1 ANTIGEN WITH HIV-1/2 [id number] 13:26:00 Test Item Value Reference Range Interpretation Comments HIV-1 ANTIGEN WITH HIV 1\\T\\2 Nonreactive Nonreactive ANTIBODY (2) (BEAKER) (test code = 2586) HEPATITIS B SURFACE [id number] 13:19:00 Test Item Value Reference Range Interpretation Comments HEPATITIS B SURFACE ANTIBODY 34.5 mIU/mL <8.0 H (BEAKER) (test code = 647) HEPATITIS A ANTIBODY, [id number] 13:19:00 Test Item Value Reference Range Interpretation Comments HEPATITIS A IGM ANTIBODY (BEAKER) Nonreactive Nonreactive (test code = 498) HEPATITIS B CORE ANTIBODY, [id number] 13:19:00 Test Item Value Reference Range Interpretation Comments HEPATITIS B CORE TOTAL ANTIBODY Nonreactive Nonreactive (BEAKER) (test code = 497) HEPATITIS A ANTIBODY, [id number] 13:19:00 Test Item Value Reference Range Interpretation Comments HEPATITIS A IGG ANTIBODY (BEAKER) Nonreactive Nonreactive (test code = 2797) PROTHROMBIN [id number] 13:00:00 Test Item Value Reference Range Interpretation Comments PROTIME (BEAKER) (test code = 15.5 seconds 11.7-14.7 H 759) INR (BEAKER) (test code = 370) 1.2 <=5.9 RECOMMENDED COUMADIN/WARFARIN INR THERAPY RANGESSTANDARD DOSE: 2.0 - 3.0 Includes: PROPHYLAXIS forvenous thrombosis, systemic embolization; TREATMENT for venous thrombosis and/or pulmonary embolus.HIGH RISK: Target INR is 2.5-3.5 for patients with mechanical heart valves.[id number] 03:31:00 Test Item Value Reference Range Interpretation Comments PHOSPHORUS (BEAKER) (test code = 3.5 mg/dL 2.3-4.7 604) [id number] 03:31:00 Test Item Value Reference Range Interpretation Comments MAGNESIUM (BEAKER) (test code = 1.5 mg/dL 1.6-2.6 L 627) COMPREHENSIVE METABOLIC [id number] 03:31:00 Test Item Value Reference Range Interpretation Comments TOTAL PROTEIN 6.5 gm/dL 6.0-8.3 (BEAKER) (test code = 770) ALBUMIN (BEAKER) 3.7 g/dL 3.5-5.0 (test code = 1145) ALKALINE PHOSPHATASE 200 U/L 40-150 H (BEAKER) (test code = 346) BILIRUBIN TOTAL 0.8 mg/dL 0.2-1.2 (BEAKER) (test code = 377) SODIUM (BEAKER) (test 142 meq/L 136-145 code = 381) POTASSIUM (BEAKER) 3.1 meq/L 3.5-5.1 L (test code = 379) CHLORIDE (BEAKER) 103 meq/L 98-107 (test code = 382) CO2 (BEAKER) (test 24 meq/L 22-29 code = 355) BLOOD UREA NITROGEN 4 mg/dL 7-21 L (BEAKER) (test code = 354) CREATININE (BEAKER) 0.55 mg/dL 0.57-1.25 L (test code = 358) GLUCOSE RANDOM 100 mg/dL 70-105 (BEAKER) (test code = 652) CALCIUM (BEAKER) 8.5 mg/dL 8.4-10.2 (test code = 697) AST (SGOT) (BEAKER) 318 U/L 5-34 H (test code = 353) ALT (SGPT) (BEAKER) 244 U/L 6-55 H (test code = 347) EGFR (BEAKER) (test 173 ESTIMATE D GFR IS code = 1092) mL/min/1.73 sq NOT ACCURA TE m CREATININE CLEARANCE IN PREDICTING GLOMERULAR FILTRATION RATE . ESTIMATED GFR I S NOT APPLICABLE FOR DIALYSIS PATIEN TS. CBC W/PLT COUNT & AUTO [id number] 03:03:00 Test Item Value Reference Range Interpretation Comments WHITE BLOOD CELL COUNT (BEAKER) 4.2 K/ L 3.5-10.5 (test code = 775) RED BLOOD CELL COUNT (BEAKER) 3.61 M/ L 4.63-6.08 L (test code = 761) HEMOGLOBIN (BEAKER) (test code = 12.3 GM/DL 13.7-17.5 L 410) HEMATOCRIT (BEAKER) (test code = 35.9 % 40.1-51.0 L 411) MEAN CORPUSCULAR VOLUME (BEAKER) 99.4 fL 79.0-92.2 H (test code = 753) MEAN CORPUSCULAR HEMOGLOBIN 34.1 pg 25.7-32.2 H (BEAKER) (test code = 751) MEAN CORPUSCULAR HEMOGLOBIN CONC 34.3 GM/DL 32.3-36.5 (BEAKER) (test code = 752) RED CELL DISTRIBUTION WIDTH 12.3 % 11.6-14.4 (BEAKER) (test code = 412) PLATELET COUNT (BEAKER) (test 122 K/CU MM 150-450 L code = 756) MEAN PLATELET VOLUME (BEAKER) 9.8 fL 9.4-12.4 (test code = 754) NUCLEATED RED BLOOD CELLS 0 /100 WBC 0-0 (BEAKER) (test code = 413) NEUTROPHILS RELATIVE PERCENT 70 % (BEAKER) (test code = 429) LYMPHOCYTES RELATIVE PERCENT 17 % (BEAKER) (test code = 430) MONOCYTES RELATIVE PERCENT 11 % (BEAKER) (test code = 431) EOSINOPHILS RELATIVE PERCENT 1 % (BEAKER) (test code = 432) BASOPHILS RELATIVE PERCENT 1 % (BEAKER) (test code = 437) NEUTROPHILS ABSOLUTE COUNT 2.94 K/ L 1.78-5.38 (BEAKER) (test code = 670) LYMPHOCYTES ABSOLUTE COUNT 0.73 K/ L 1.32-3.57 L (BEAKER) (test code = 414) MONOCYTES ABSOLUTE COUNT (BEAKER) 0.45 K/ L 0.30-0.82 (test code = 415) EOSINOPHILS ABSOLUTE COUNT 0.04 K/ L 0.04-0.54 (BEAKER) (test code = 416) BASOPHILS ABSOLUTE COUNT (BEAKER) 0.02 K/ L 0.01-0.08 (test code = 417) IMMATURE GRANULOCYTES-RELATIVE 1 % 0-1 PERCENT (BEAKER) (test code = 2801) POCT-GLUCOSE [id number] 12:15:00 Test Item Value Reference Range Interpretation Comments POC-GLUCOSE METER 99 mg/dL 70-110 TESTED AT [facility] [address] (BEAKER) (test code = [place] [address] 1538) [id number] 06:15:00 Test Item Value Reference Range Interpretation Comments MAGNESIUM (BEAKER) (test code = 1.8 mg/dL 1.6-2.6 627) COMPREHENSIVE METABOLIC [id number] 06:15:00 Test Item Value Reference Range Interpretation Comments TOTAL PROTEIN 6.6 gm/dL 6.0-8.3 (BEAKER) (test code = 770) ALBUMIN (BEAKER) 3.6 g/dL 3.5-5.0 (test code = 1145) ALKALINE PHOSPHATASE 149 U/L 40-150 (BEAKER) (test code = 346) BILIRUBIN TOTAL 0.8 mg/dL 0.2-1.2 (BEAKER) (test code = 377) SODIUM (BEAKER) (test 135 meq/L 136-145 L code = 381) POTASSIUM (BEAKER) 3.6 meq/L 3.5-5.1 (test code = 379) CHLORIDE (BEAKER) 98 meq/L 98-107 (test code = 382) CO2 (BEAKER) (test 26 meq/L 22-29 code = 355) BLOOD UREA NITROGEN 8 mg/dL 7-21 (BEAKER) (test code = 354) CREATININE (BEAKER) 0.57 mg/dL 0.57-1.25 (test code = 358) GLUCOSE RANDOM 100 mg/dL 70-105 (BEAKER) (test code = 652) CALCIUM (BEAKER) 9.5 mg/dL 8.4-10.2 (test code = 697) AST (SGOT) (BEAKER) 155 U/L 5-34 H (test code = 353) ALT (SGPT) (BEAKER) 151 U/L 6-55 H (test code = 347) EGFR (BEAKER) (test 166 ESTIMATE D GFR IS code = 1092) mL/min/1.73 sq NOT ACCURA TE m CREATININE CLEARANCE IN PREDICTING GLOMERULAR FILTRATION RATE . ESTIMATED GFR I S NOT APPLICABLE FOR DIALYSIS PATIEN TS. CBC W/PLT COUNT & AUTO [id number] 05:30:00 Test Item Value Reference Range Interpretation Comments WHITE BLOOD CELL COUNT (BEAKER) 5.1 K/ L 3.5-10.5 (test code = 775) RED BLOOD CELL COUNT (BEAKER) 3.81 M/ L 4.63-6.08 L (test code = 761) HEMOGLOBIN (BEAKER) (test code = 13.1 GM/DL 13.7-17.5 L 410) HEMATOCRIT (BEAKER) (test code = 37.6 % 40.1-51.0 L 411) MEAN CORPUSCULAR VOLUME (BEAKER) 98.7 fL 79.0-92.2 H (test code = 753) MEAN CORPUSCULAR HEMOGLOBIN 34.4 pg 25.7-32.2 H (BEAKER) (test code = 751) MEAN CORPUSCULAR HEMOGLOBIN CONC 34.8 GM/DL 32.3-36.5 (BEAKER) (test code = 752) RED CELL DISTRIBUTION WIDTH 11.5 % 11.6-14.4 L (BEAKER) (test code = 412) PLATELET COUNT (BEAKER) (test 152 K/CU MM 150-450 code = 756) MEAN PLATELET VOLUME (BEAKER) 10.2 fL 9.4-12.4 (test code = 754) NUCLEATED RED BLOOD CELLS 0 /100 WBC 0-0 (BEAKER) (test code = 413) NEUTROPHILS RELATIVE PERCENT 71 % (BEAKER) (test code = 429) LYMPHOCYTES RELATIVE PERCENT 14 % (BEAKER) (test code = 430) MONOCYTES RELATIVE PERCENT 11 % (BEAKER) (test code = 431) EOSINOPHILS RELATIVE PERCENT 2 % (BEAKER) (test code = 432) BASOPHILS RELATIVE PERCENT 1 % (BEAKER) (test code = 437) NEUTROPHILS ABSOLUTE COUNT 3.66 K/ L 1.78-5.38 (BEAKER) (test code = 670) LYMPHOCYTES ABSOLUTE COUNT 0.71 K/ L 1.32-3.57 L (BEAKER) (test code = 414) MONOCYTES ABSOLUTE COUNT (BEAKER) 0.58 K/ L 0.30-0.82 (test code = 415) EOSINOPHILS ABSOLUTE COUNT 0.10 K/ L 0.04-0.54 (BEAKER) (test code = 416) BASOPHILS ABSOLUTE COUNT (BEAKER) 0.04 K/ L 0.01-0.08 (test code = 417) IMMATURE GRANULOCYTES-RELATIVE 1 % 0-1 PERCENT (BEAKER) (test code = 2801) POCT-GLUCOSE [id number] 11:54:00 Test Item Value Reference Range Interpretation Comments POC-GLUCOSE METER 83 mg/dL 70-110 TESTED AT [facility] [address] (BEAKER) (test code = [place] [id number] 1538) [id number] 05:54:00 Test Item Value Reference Range Interpretation Comments PHOSPHORUS (BEAKER) (test code = 2.3 mg/dL 2.3-4.7 604) [id number] 05:54:00 Test Item Value Reference Range Interpretation Comments MAGNESIUM (BEAKER) (test code = 2.0 mg/dL 1.6-2.6 627) COMPREHENSIVE METABOLIC [id number] 05:54:00 Test Item Value Reference Range Interpretation Comments TOTAL PROTEIN 6.0 gm/dL 6.0-8.3 (BEAKER) (test code = 770) ALBUMIN (BEAKER) 3.2 g/dL 3.5-5.0 L (test code = 1145) ALKALINE PHOSPHATASE 134 U/L 40-150 (BEAKER) (test code = 346) BILIRUBIN TOTAL 1.1 mg/dL 0.2-1.2 (BEAKER) (test code = 377) SODIUM (BEAKER) (test 134 meq/L 136-145 L code = 381) POTASSIUM (BEAKER) 3.6 meq/L 3.5-5.1 (test code = 379) CHLORIDE (BEAKER) 100 meq/L 98-107 (test code = 382) CO2 (BEAKER) (test 26 meq/L 22-29 code = 355) BLOOD UREA NITROGEN 4 mg/dL 7-21 L (BEAKER) (test code = 354) CREATININE (BEAKER) 0.54 mg/dL 0.57-1.25 L (test code = 358) GLUCOSE RANDOM 141 mg/dL 70-105 H (BEAKER) (test code = 652) CALCIUM (BEAKER) 8.8 mg/dL 8.4-10.2 (test code = 697) AST (SGOT) (BEAKER) 183 U/L 5-34 H (test code = 353) ALT (SGPT) (BEAKER) 149 U/L 6-55 H (test code = 347) EGFR (BEAKER) (test 176 ESTIMATE D GFR IS code = 1092) mL/min/1.73 sq NOT ACCURA TE m CREATININE CLEARANCE IN PREDICTING GLOMERULAR FILTRATION RATE . ESTIMATED GFR I S NOT APPLICABLE FOR DIALYSIS PATIEN TS. LACTIC ACID, [id number] 05:35:00 Test Item Value Reference Range Interpretation Comments LACTATE BLOOD VENOUS (2) (BEAKER) 1.0 mmol/L 0.5-2.2 (test code = 2872) CBC W/PLT COUNT & AUTO [id number] 05:23:00 Test Item Value Reference Range Interpretation Comments WHITE BLOOD CELL COUNT (BEAKER) 5.0 K/ L 3.5-10.5 (test code = 775) RED BLOOD CELL COUNT (BEAKER) 3.88 M/ L 4.63-6.08 L (test code = 761) HEMOGLOBIN (BEAKER) (test code = 13.0 GM/DL 13.7-17.5 L 410) HEMATOCRIT (BEAKER) (test code = 38.5 % 40.1-51.0 L 411) MEAN CORPUSCULAR VOLUME (BEAKER) 99.2 fL 79.0-92.2 H (test code = 753) MEAN CORPUSCULAR HEMOGLOBIN 33.5 pg 25.7-32.2 H (BEAKER) (test code = 751) MEAN CORPUSCULAR HEMOGLOBIN CONC 33.8 GM/DL 32.3-36.5 (BEAKER) (test code = 752) RED CELL DISTRIBUTION WIDTH 11.6 % 11.6-14.4 (BEAKER) (test code = 412) PLATELET COUNT (BEAKER) (test 113 K/CU MM 150-450 L code = 756) MEAN PLATELET VOLUME (BEAKER) 10.7 fL 9.4-12.4 (test code = 754) NUCLEATED RED BLOOD CELLS 0 /100 WBC 0-0 (BEAKER) (test code = 413) NEUTROPHILS RELATIVE PERCENT 72 % (BEAKER) (test code = 429) LYMPHOCYTES RELATIVE PERCENT 15 % (BEAKER) (test code = 430) MONOCYTES RELATIVE PERCENT 10 % (BEAKER) (test code = 431) EOSINOPHILS RELATIVE PERCENT 2 % (BEAKER) (test code = 432) BASOPHILS RELATIVE PERCENT 1 % (BEAKER) (test code = 437) NEUTROPHILS ABSOLUTE COUNT 3.56 K/ L 1.78-5.38 (BEAKER) (test code = 670) LYMPHOCYTES ABSOLUTE COUNT 0.76 K/ L 1.32-3.57 L (BEAKER) (test code = 414) MONOCYTES ABSOLUTE COUNT (BEAKER) 0.49 K/ L 0.30-0.82 (test code = 415) EOSINOPHILS ABSOLUTE COUNT 0.10 K/ L 0.04-0.54 (BEAKER) (test code = 416) BASOPHILS ABSOLUTE COUNT (BEAKER) 0.04 K/ L 0.01-0.08 (test code = 417) IMMATURE GRANULOCYTES-RELATIVE 1 % 0-1 PERCENT (BEAKER) (test code = 2807) POCT-GLUCOSE [id number] 18:44:00 Test Item Value Reference Range Interpretation Comments POC-GLUCOSE METER 100 mg/dL 70-110 TESTED AT [facility] (BEAKER) (test code = [place] 1538) [id number] 17:58:00 Test Item Value Reference Range Interpretation Comments PHOSPHORUS (BEAKER) (test code = 2.3 mg/dL 2.3-4.7 604) [id number] 17:58:00 Test Item Value Reference Range Interpretation Comments MAGNESIUM (BEAKER) (test code = 1.8 mg/dL 1.6-2.6 627) BASIC METABOLIC [id number] 17:58:00 Test Item Value Reference Range Interpretation Comments SODIUM (BEAKER) 137 meq/L 136-145 (test code = 381) POTASSIUM (BEAKER) 3.6 meq/L 3.5-5.1 (test code = 379) CHLORIDE (BEAKER) 102 meq/L 98-107 (test code = 382) CO2 (BEAKER) (test 26 meq/L 22-29 code = 355) BLOOD UREA NITROGEN 4 mg/dL 7-21 L (BEAKER) (test code = 354) CREATININE (BEAKER) 0.54 mg/dL 0.57-1.25 L (test code = 358) GLUCOSE RANDOM 123 mg/dL 70-105 H (BEAKER) (test code = 652) CALCIUM (BEAKER) 8.7 mg/dL 8.4-10.2 (test code = 697) EGFR (BEAKER) (test 177 mL/min/1.73 ESTIM ATED GFR IS code = 1092) sq m NOT ACCURATE CREATININE CLEARANCE IN PREDICTING GLOMERULAR FILTRATION RATE . ESTIMATED GFR I S NOT APPLICABLE FOR DIALYSIS PATIEN TS. [id number] 16:55:00 Test Item Value Reference Range Interpretation Comments MAGNESIUM (BEAKER) 1.6 mg/dL 1.6-2.6 Specimen slightly (test code = 627) hemolyzed [id number] 16:55:00 Test Item Value Reference Range Interpretation Comments PHOSPHORUS (BEAKER) 2.3 mg/dL 2.3-4.7 Specimen slightly (test code = 604) hemolyzed BASIC METABOLIC [id number] 16:55:00 Test Item Value Reference Range Interpretation Comments SODIUM (BEAKER) 138 meq/L 136-145 (test code = 381) POTASSIUM (BEAKER) 3.7 meq/L 3.5-5.1 Specimen slightly (test code = 379) hemolyzed CHLORIDE (BEAKER) 105 meq/L 98-107 (test code = 382) CO2 (BEAKER) (test 23 meq/L 22-29 code = 355) BLOOD UREA NITROGEN 4 mg/dL 7-21 L (BEAKER) (test code = 354) CREATININE ([facility]) 0.51 mg/dL 0.57-1.25 L Specimen slightly (test code = 358) hemolyzed GLUCOSE RANDOM 99 mg/dL 70-105 ([facility]) (test code = 652) CALCIUM ([facility]) 8.0 mg/dL 8.4-10.2 L (test code = 697) EGFR ([facility]) (test 190 mL/min/1.73 ESTIM ATED GFR IS code = 1092) sq m NOT ACCURATE CREATININE CLEARANCE IN PREDICTING GLOMERULAR FILTRATION RATE . ESTIMATED GFR I S NOT APPLICABLE FOR DIALYSIS PATIEN TS. POCT-GLUCOSE [id number] 12:41:00 Test Item Value Reference Range Interpretation Comments POC-GLUCOSE METER 100 mg/dL 70-110 TESTED AT [place] [address] ([facility]) (test code = [facility] 1538) [id number] POCT-GLUCOSE [id number] 08:07:00 Test Item Value Reference Range Interpretation Comments POC-GLUCOSE METER 99 mg/dL 70-110 TESTED AT [place] [address] ([facility]) (test code = [facility] [address] 1538) U/S, ABDOMINAL, [id number] 08:05:00Abdomen limited area? Add comment if clarification [...] be secondary to portal hypertension. Signed: Juan [place] Verified Date/Time: 09/30/2018 08:05:48 Reading Location: [facility] [id number] Ultrasound Reading Room [id number] 07:23:00 Test Item Value Reference Range Interpretation Comments PHOSPHORUS (BEAKER) (test code = 1.2 mg/dL 2.3-4.7 LL 604) [id number] 07:11:00 Test Item Value Reference Range Interpretation Comments MAGNESIUM (BEAKER) (test code = 2.3 mg/dL 1.6-2.6 627) COMPREHENSIVE METABOLIC [id number] 07:11:00 Test Item Value Reference Range Interpretation Comments TOTAL PROTEIN 5.8 gm/dL 6.0-8.3 L (BEAKER) (test code = 770) ALBUMIN (BEAKER) 3.1 g/dL 3.5-5.0 L (test code = 1145) ALKALINE PHOSPHATASE 141 U/L 40-150 (BEAKER) (test code = 346) BILIRUBIN TOTAL 1.1 mg/dL 0.2-1.2 (BEAKER) (test code = 377) SODIUM (BEAKER) (test 135 meq/L 136-145 L code = 381) POTASSIUM (BEAKER) 3.7 meq/L 3.5-5.1 (test code = 379) CHLORIDE (BEAKER) 104 meq/L 98-107 (test code = 382) CO2 (BEAKER) (test 24 meq/L 22-29 code = 355) BLOOD UREA NITROGEN 5 mg/dL 7-21 L (BEAKER) (test code = 354) CREATININE (BEAKER) 0.39 mg/dL 0.57-1.25 L (test code = 358) GLUCOSE RANDOM 114 mg/dL 70-105 H (BEAKER) (test code = 652) CALCIUM (BEAKER) 8.3 mg/dL 8.4-10.2 L (test code = 697) AST (SGOT) (BEAKER) 354 U/L 5-34 H (test code = 353) ALT (SGPT) (BEAKER) 188 U/L 6-55 H (test code = 347) EGFR (BEAKER) (test 258 ESTIMATE D GFR IS code = 1092) mL/min/1.73 sq NOT ACCURA TE m CREATININE CLEARANCE IN PREDICTING GLOMERULAR FILTRATION RATE . ESTIMATED GFR I S NOT APPLICABLE FOR DIALYSIS PATIEN TS. LACTIC ACID, [id number] 04:07:00 Test Item Value Reference Range Interpretation Comments LACTATE BLOOD VENOUS 0.8 mmol/L 0.5-2.2 Specime n slightly (2) (BEAKER) (test hemolyzed code = 7616) CBC W/PLT COUNT & AUTO [id number] 04:00:00 Test Item Value Reference Range Interpretation Comments WHITE BLOOD CELL COUNT (BEAKER) 6.1 K/ L 3.5-10.5 (test code = 775) RED BLOOD CELL COUNT (BEAKER) 3.87 M/ L 4.63-6.08 L (test code = 761) HEMOGLOBIN (BEAKER) (test code = 13.3 GM/DL 13.7-17.5 L 410) HEMATOCRIT (BEAKER) (test code = 39.1 % 40.1-51.0 L 411) MEAN CORPUSCULAR VOLUME (BEAKER) 101.0 fL 79.0-92.2 H (test code = 753) MEAN CORPUSCULAR HEMOGLOBIN 34.4 pg 25.7-32.2 H (BEAKER) (test code = 751) MEAN CORPUSCULAR HEMOGLOBIN CONC 34.0 GM/DL 32.3-36.5 (BEAKER) (test code = 752) RED CELL DISTRIBUTION WIDTH 12.1 % 11.6-14.4 (BEAKER) (test code = 412) PLATELET COUNT (BEAKER) (test 105 K/CU MM 150-450 L code = 756) MEAN PLATELET VOLUME (BEAKER) 10.4 fL 9.4-12.4 (test code = 754) NUCLEATED RED BLOOD CELLS 0 /100 WBC 0-0 (BEAKER) (test code = 413) NEUTROPHILS RELATIVE PERCENT 74 % (BEAKER) (test code = 429) LYMPHOCYTES RELATIVE PERCENT 14 % (BEAKER) (test code = 430) MONOCYTES RELATIVE PERCENT 10 % (BEAKER) (test code = 431) EOSINOPHILS RELATIVE PERCENT 1 % (BEAKER) (test code = 432) BASOPHILS RELATIVE PERCENT 1 % (BEAKER) (test code = 437) NEUTROPHILS ABSOLUTE COUNT 4.52 K/ L 1.78-5.38 (BEAKER) (test code = 670) LYMPHOCYTES ABSOLUTE COUNT 0.84 K/ L 1.32-3.57 L (BEAKER) (test code = 414) MONOCYTES ABSOLUTE COUNT (BEAKER) 0.62 K/ L 0.30-0.82 (test code = 415) EOSINOPHILS ABSOLUTE COUNT 0.06 K/ L 0.04-0.54 (BEAKER) (test code = 416) BASOPHILS ABSOLUTE COUNT (BEAKER) 0.03 K/ L 0.01-0.08 (test code = 417) IMMATURE GRANULOCYTES-RELATIVE 0 % 0-1 PERCENT (BEAKER) (test code = 2801) [id number] 01:32:00 Test Item Value Reference Range Interpretation Comments PROCALCITONIN (BEAKER) (test code 0.48 ng/mL <0.05 H = 3036) SEPSIS RISK (ng/mL)Low: 0.05-0.50Intermediate: 0.51-2.00High: >=2.01BASIC METABOLIC [id number] 00:58:00 Test Item Value Reference Range Interpretation Comments SODIUM (BEAKER) 135 meq/L 136-145 L (test code = 381) POTASSIUM (BEAKER) 3.4 meq/L 3.5-5.1 L (test code = 379) CHLORIDE (BEAKER) 104 meq/L 98-107 (test code = 382) CO2 (BEAKER) (test 22 meq/L 22-29 code = 355) BLOOD UREA NITROGEN 7 mg/dL 7-21 (BEAKER) (test code = 354) CREATININE (BEAKER) 0.55 mg/dL 0.57-1.25 L (test code = 358) GLUCOSE RANDOM 113 mg/dL 70-105 H (BEAKER) (test code = 652) CALCIUM (BEAKER) 8.4 mg/dL 8.4-10.2 (test code = 697) EGFR (BEAKER) (test 174 mL/min/1.73 ESTIM ATED GFR IS code = 1092) sq m NOT ACCURATE CREATININE CLEARANCE IN PREDICTING GLOMERULAR FILTRATION RATE . ESTIMATED GFR I S NOT APPLICABLE FOR DIALYSIS PATIEN TS. [id number] 00:57:00 Test Item Value Reference Range Interpretation Comments MAGNESIUM (BEAKER) (test code = 1.5 mg/dL 1.6-2.6 L 627) LACTIC ACID, [id number] 00:37:00 Test Item Value Reference Range Interpretation Comments LACTATE BLOOD VENOUS 0.7 mmol/L 0.5-2.2 Specime n moderately (2) (BEAKER) (test hemolyzed code = 2872) POCT-GLUCOSE [id number] 00:25:00 Test Item Value Reference Range Interpretation Comments POC-GLUCOSE METER 101 mg/dL 70-110 TESTED AT [facility] (test code = CHANCE [facility] 1538) [id number] POCT-GLUCOSE [id number] 18:32:00 Test Item Value Reference Range Interpretation Comments POC-GLUCOSE METER 76 mg/dL 70-110 TESTED AT [place] [address] ([facility] (test code = [facility] David [facility] [address] 1538) [id number] 15:15:00 Test Item Value Reference Range Interpretation Comments POTASSIUM (BEAKER) (test code = 3.4 meq/L 3.5-5.1 L 379) [id number] 15:15:00 Test Item Value Reference Range Interpretation Comments MAGNESIUM (BEAKER) (test code = 2.1 mg/dL 1.6-2.6 627) CT, [id number] 12:38:00FINAL REPORT CT abdomen with and without [...] MDReport Verified Date/Time: 09/29/2018 12:38:07 Reading Location: [address] Consult Reading Room POCT-GLUCOSE [id number] 11:49:00 Test Item Value Reference Range Interpretation Comments POC-GLUCOSE METER 83 mg/dL 70-110 TESTED AT [facility] ([facility]) (test code = [place] [address] 1538) [id number] 10:49:00 Test Item Value Reference Range Interpretation Comments TRIGLYCERIDES ([facility]) 71 mg/dL Speci men slightly (test code = 540) hemolyzed TRIGLYCERIDE REFERENCE RANGELow Risk <150Borderline Risk 150-199High Risk 200-499Very High Risk>=[id number] 05:09:00 Test Item Value Reference Range Interpretation Comments LIPASE (BEAKER) (test code = 749) > U/L 8-78 H [id number] 04:35:00 Test Item Value Reference Range Interpretation Comments MAGNESIUM (BEAKER) 1.6 mg/dL 1.6-2.6 Specimen slightly (test code = 627) hemolyzed [id number] 04:35:00 Test Item Value Reference Range Interpretation Comments PHOSPHORUS (BEAKER) 3.2 mg/dL 2.3-4.7 Specimen slightly (test code = 604) hemolyzed COMPREHENSIVE METABOLIC [id number] 04:35:00 Test Item Value Reference Range Interpretation Comments TOTAL PROTEIN 6.8 gm/dL 6.0-8.3 Specimen sligh tly (BEAKER) (test code = hemoly zed 770) ALBUMIN (BEAKER) 3.8 g/dL 3.5-5.0 Specimen sl ightly (test code = 1145) hemolyzed ALKALINE PHOSPHATASE 130 U/L 40-150 (BEAKER) (test code = 346) BILIRUBIN TOTAL 1.7 mg/dL 0.2-1.2 H Specimen sli ghtly (BEAKER) (test code = hemoly zed 377) SODIUM (BEAKER) (test 138 meq/L 136-145 code = 381) POTASSIUM (BEAKER) 3.7 meq/L 3.5-5.1 Specimen slightly (test code = 379) hemolyzed CHLORIDE (BEAKER) 103 meq/L 98-107 (test code = 382) CO2 (BEAKER) (test 17 meq/L 22-29 L code = 355) BLOOD UREA NITROGEN 9 mg/dL 7-21 (BEAKER) (test code = 354) CREATININE (BEAKER) 0.65 mg/dL 0.57-1.25 Specimen slightly (test code = 358) hemolyzed GLUCOSE RANDOM 103 mg/dL 70-105 (BEAKER) (test code = 652) CALCIUM (BEAKER) 8.7 mg/dL 8.4-10.2 (test code = 697) AST (SGOT) (BEAKER) 151 U/L 5-34 H Specimen slightly (test code = 353) hemolyzed ALT (SGPT) (BEAKER) 143 U/L 6-55 H Specimen slightly (test code = 347) hemolyzed EGFR (BEAKER) (test 143 ESTIMATE D GFR IS code = 1092) mL/min/1.73 sq NOT ACCURA TE m CREATININE CLEARANCE IN PREDICTING GLOMERULAR FILTRATION RATE . ESTIMATED GFR I S NOT APPLICABLE FOR DIALYSIS PATIEN TS. PROTHROMBIN [id number] 04:34:00 Test Item Value Reference Range Interpretation Comments PROTIME (BEAKER) (test code = 14.6 seconds 11.7-14.7 759) INR (BEAKER) (test code = 370) 1.1 <=5.9 RECOMMENDED COUMADIN/WARFARIN INR THERAPY RANGESSTANDARD DOSE: 2.0 - 3.0 Includes: PROPHYLAXIS forvenous thrombosis, systemic embolization; TREATMENT for venous thrombosis and/or pulmonary embolus.HIGH RISK: Target INR is 2.5-3.5 for patients with mechanical heart valves.CBC W/PLT COUNT & AUTO DIFFERENTIAL 2018-09-29 04:09:00 Test Item Value Reference Range Interpretation Comments WHITE BLOOD CELL COUNT (BEAKER) 6.2 K/ L 3.5-10.5 (test code = 775) RED BLOOD CELL COUNT (BEAKER) 4.33 M/ L 4.63-6.08 L (test code = 761) HEMOGLOBIN (BEAKER) (test code = 15.0 GM/DL 13.7-17.5 410) HEMATOCRIT (BEAKER) (test code = 43.2 % 40.1-51.0 411) MEAN CORPUSCULAR VOLUME (BEAKER) 99.8 fL 79.0-92.2 H (test code = 753) MEAN CORPUSCULAR HEMOGLOBIN 34.6 pg 25.7-32.2 H (BEAKER) (test code = 751) MEAN CORPUSCULAR HEMOGLOBIN CONC 34.7 GM/DL 32.3-36.5 (BEAKER) (test code = 752) RED CELL DISTRIBUTION WIDTH 12.4 % 11.6-14.4 (BEAKER) (test code = 412) PLATELET COUNT (BEAKER) (test 160 K/CU MM 150-450 code = 756) MEAN PLATELET VOLUME (BEAKER) 10.4 fL 9.4-12.4 (test code = 754) NUCLEATED RED BLOOD CELLS 0 /100 WBC 0-0 (BEAKER) (test code = 413) NEUTROPHILS RELATIVE PERCENT 81 % (BEAKER) (test code = 429) LYMPHOCYTES RELATIVE PERCENT 7 % (BEAKER) (test code = 430) MONOCYTES RELATIVE PERCENT 10 % (BEAKER) (test code = 431) EOSINOPHILS RELATIVE PERCENT 0 % (BEAKER) (test code = 432) BASOPHILS RELATIVE PERCENT 1 % (BEAKER) (test code = 437) NEUTROPHILS ABSOLUTE COUNT 5.01 K/ L 1.78-5.38 (BEAKER) (test code = 670) LYMPHOCYTES ABSOLUTE COUNT 0.44 K/ L 1.32-3.57 L (BEAKER) (test code = 414) MONOCYTES ABSOLUTE COUNT (BEAKER) 0.62 K/ L 0.30-0.82 (test code = 415) EOSINOPHILS ABSOLUTE COUNT 0.01 K/ L 0.04-0.54 L (BEAKER) (test code = 416) BASOPHILS ABSOLUTE COUNT (BEAKER) 0.03 K/ L 0.01-0.08 (test code = 417) IMMATURE GRANULOCYTES-RELATIVE 1 % 0-1 PERCENT (BEAKER) (test code = 1435)
[2020-03-25 15:44] LABS: Hematocrit 50.5 % (39.6-49.0); RBC Red Blood Cell Count 5.85 M/uL (4.33-5.43)
[2020-03-25 15:45] LABS: Absolute Lymphocytes (CBC) 3.3 K/uL (0.7-4.9); Basophils % 0.8 % (0-1.3); Lymphocytes % 24.4 % (15.3-44.8); MPV 8.3 fL (7.6-11.3)
[2020-03-25] MEDS ORDERED: MORPHINE 4 MG/ML SYR ONE ×2 (16:02→19:32)
[2020-03-25] MEDS ORDERED: ONDANSETRON 4 MG/2 ML VIAL ONE (16:02)
[2020-03-25 16:06] LABS: ALT/SGPT 88 U/L (12-78); AST/SGOT 25 U/L (15-37); Albumin 5.1 g/dL (3.4-5.0); Alkaline Phosphatase 182 U/L (45-117); BUN Blood Urea Nitrogen 23 mg/dL (7-18); Bicarbonate 27 mmol/L (21-32); Bilirubin Direct 0.2 mg/dL (0-0.2); Bilirubin Total 0.8 mg/dL (0.2-1.0); Glucose Level 119 mg/dL (74-106); Lipase 166 U/L (73-393); Potassium 3.5 mmol/L (3.5-5.1); Protein, Total 9.4 g/dL (6.4-8.2); Sodium Level 136 mmol/L (136-145)
--- NOTE | 2020-03-25 16:38 | RAD REPORT ---
EXAM DESCRIPTION: CT - Abdomen Pelvis W Contrast - 03/25/2020 4:11 pm CLINICAL HISTORY: abdominal pain, recent cholecystectomy COMPARISON: Abdomen Pelvis W Contrast dated 09/26/2019 TECHNIQUE: Biphasic, helical CT imaging of the abdomen and pelvis was performed following 100 ml non -ionic IV contrast. No oral contrast administered. All CT scans are performed using dose optimization technique as appropriate and may include automated exposure control or mA/KV adjustment according to patient size. FINDINGS: No suspicious findings in the lung bases. Liver shows mild diffuse fatty infiltration with no focal liver lesion. No portal vein abnormality. S pleen and pancreas show no acute findings. Cholecystectomy clips are present. Trace amount of strandi ng and edema are seen in the gallbladder fossa, well within normal limits for cholecystectomy procedu re. No biliary tree dilatation. Symmetric renal function is seen with no hydronephrosis or suspicious renal mass. No pyelonephritis o r acute parenchymal process. No bladder abnormalities. No adrenal abnormalities. Small hiatal hernia is present. No dilated bowel loops or bowel wall thickening. No appendicitis find ings. No free air, free fluid or inflammatory stranding. No hernia, mass or bulky lymphadenopathy. No suspicious bony findings. IMPRESSION: Cholecystectomy changes are present. Trace amount of stranding at the gallbladder fossa well within normal limits. No abscess or other complication from the surgery. Mild diffuse fatty infiltration of the liver.
[2020-03-25] MEDS ORDERED: NA CHLORIDE 0.9% 1,000 ML ONE (17:17)
[2020-03-25 17:56] LABS: Protime INR 1.36
[2020-03-25] MEDS ORDERED: METOCLOPRAMIDE 10 MG/2mL INJ ONE (18:04)
[2020-03-25] MEDS ORDERED: DIPHENHYDRAMINE 50 MG/ML VIAL ONE (18:05)
[2020-03-25] MEDS ORDERED: LORazepam 2 MG/ML VIAL ONE (18:05)
[2020-03-25] MEDS ORDERED: NA CHLORIDE 0.9% 250 ML ONE (18:05)
--- NOTE | 2020-03-25 19:12 | EDPHYS ---
Physician Documentation [facility] Name: Jonathan Gutierrez Age: 34 yrs Sex: Male : 1985 Arrival Date: 03/25/2020 Time: 14:26 Bed 20 Private MD: ED Physician Trenton Lubin HPI: 03/25 15:16 This 34 yrs old Male presents to ER via Ambulatory with complaints of jmm Abdominal Pain, Vomiting - Blood. 15:16 The patient presents with abdominal pain in the left upper quadrant. Onset: The jmm symptoms/episode began/occurred gradually, 4 day(s) ago. The symptoms do not radiate. Associated signs and symptoms: Pertinent positives: vomiting. This is a 34 year old male with a history of htn, pancreatitis that presents to the ED with complaints of ongoing left sided abdominal pain with multiple episodes of vomiting. Patient states he recently had his gallbladder removed approx 1 week ago by an unknown surgeon in [place]. Patient states he noticed blood in his vomit as well. Historical: - Allergies: 15:06 No Known Allergies; ca1 - PMHx: 15:06 ADD/ADHD; etoh abuse; Hypertension; liver "spot"; Pancreatitis; ca1 - PSHx: 15:06 Cholecystectomy; ca1 - Immunization history:: Adult Immunizations up to date. - Social history:: Smoking status: Patient reports the use of cigarette tobacco products, smokes one-half pack cigarettes per day. ROS: 15:16 Constitutional: Negative for fever, chills, and weight loss, Cardiovascular: Negative jmm for chest pain, palpitations, and edema, Respiratory: Negative for shortness of breath, cough, wheezing, and pleuritic chest pain. 15:16 Abdomen/GI: Positive for abdominal pain, nausea and vomiting. 15:16 All other systems are negative. Exam: 15:16 Head/Face: atraumatic. Eyes: EOMI, no conjunctival erythema appreciated jmm 15:16 ENT: Moist Mucus Membranes Neck: Trachea midline, Supple Chest/axilla: Normal chest wall appearance and motion. Cardiovascular: Regular rate and rhythm. No edema appreciated Respiratory: Normal respirations, no respiratory distress appreciated 15:16 Back: Normal ROM Skin: General appearance color normal MS/ Extremity: Moves all extremities, no obvious deformities appreciated, no edema noted to the lower extremities Neuro: Awake and alert, normal gait Psych: Behavior is normal, Mood is normal, Patient is cooperative and pleasant 15:16 Constitutional: The patient appears alert, awake, in obvious pain, uncomfortable. 15:16 Abdomen/GI: Inspection: abdomen appears normal, Bowel sounds: normal, Palpation: soft, mild abdominal tenderness, in the left upper quadrant and left lower quadrant. Vital Signs: 14:58 BP 144 / 109; Pulse 135; Resp 17 S; Temp 98.9(O); Pulse Ox 99% ; Weight 67.13 kg (R); ca1 Height 5 ft. 11 in. (180.34 cm); Pain 8/10; 16:00 BP 171 / 95; Pulse 113; Resp 20; Pulse Ox 100% ; Pain 7/10; jr10 16:38 BP 146 / 113; Pulse 105; Resp 20; Pulse Ox 100% on R/A; jr10 17:30 BP 149 / 99; Pulse 108; Resp 20; Pulse Ox 100% on R/A; jr10 18:00 BP 136 / 95; Pulse 105; Resp 20; Pulse Ox 100% ; jr10 18:30 BP 144 / 108; Pulse 105; Resp 20; Pulse Ox 100% ; jr10 19:29 BP 150 / 102; Pulse 105; Resp 18; Temp 98.9; Pulse Ox 100% on R/A; mg2 14:58 Body Mass Index 20.64 (67.13 kg, 180.34 cm) ca1 MDM: 15:16 Patient medically screened. [facility] 19:10 Data reviewed: vital signs, nurses notes. Counseling: I had a detailed discussion with [facility] the patient and/or guardian regarding: the historical points, exam findings, and any diagnostic results supporting the discharge/admit diagnosis, lab results, radiology results, the need for outpatient follow up, to return to the emergency department if symptoms worsen or persist or if there are any questions or concerns that arise at home. ED course: Patient is alert and non toxic in appearance in the ED. Pain has decreased imaging studies negative. Patient advised to follow up with GI for reevaluation. Patient understood and agrees with the plan of care. . 03/25 15:18 Order name: Basic Metabolic Panel; Complete Time: 16:32 [facility] 03/25 15:18 Order name: CBC with Diff; Complete Time: 15:56 [facility] 03/25 15:18 Order name: Hepatic Function; Complete Time: 16:32 [facility] 03/25 15:18 Order name: Lipase; Complete Time: 16:32 [facility] 03/25 15:18 Order name: Procalcitonin; Complete Time: 16:32 [facility] 03/25 15:18 Order name: CT Abd/Pelvis - IV Contrast Only; Complete Time: 16:40 [facility] 03/25 15:18 Order name: Lactate; Complete Time: 16:32 [facility] 03/25 15:18 Order name: Blood Culture Adult (2) [facility] 03/25 15:31 Order name: PT-INR; Complete Time: 18:50 [facility] 03/25 15:31 Order name: Troponin (emerg Dept Use Only); Complete Time: 16:48 [facility] 03/25 16:11 Order name: CREATININE WHOLE BLOOD; Complete Time: 16:32 [facility] 03/25 17:56 Order name: Lactate; Complete Time: 18:59 [facility] 03/25 15:18 Order name: IV Saline Lock; Complete Time: 15:25 [facility] 03/25 15:18 Order name: Labs collected and sent; Complete Time: 15:26 [facility] 03/25 15:36 Order name: Labs - recollect needed: recollect and reband type and screen. time not bd written on lable; Complete Time: 16:36 03/25 16:31 Order name: Labs - recollect needed: recollect blue top; Complete Time: 16:36 bd Administered Medications: 15:46 Drug: NS 0.9% 1000 ml Route: IV; Rate: 1 bolus; Site: right forearm; jr10 16:36 Follow up: Response: No adverse reaction; IV Status: Completed infusion jr10 16:20 Drug: morphine 4 mg Route: IVP; Site: left forearm; jr10 16:20 Drug: Zofran (Ondansetron) 4 mg Route: IVP; Site: left forearm; jr10 17:17 Drug: NS 0.9% 1000 ml Route: IV; Rate: 1 bolus; Site: left forearm; jr10 18:04 Follow up: Response: No adverse reaction; IV Status: Completed infusion jr10 18:03 Drug: Reglan 10 mg Route: IVP; Site: right forearm; jr10 18:36 Follow up: Response: No adverse reaction jr10 18:04 Drug: Ativan 1 mg Route: IVP; Site: left forearm; jr10 18:36 Follow up: Response: No adverse reaction jr10 18:04 Drug: diphenhydrAMINE 25 mg Route: IVP; Site: left forearm; jr10 18:36 Follow up: Response: No adverse reaction jr10 19:28 Drug: morphine 4 mg Route: IVP; Site: right forearm; mg2 19:29 Follow up: Response: No adverse reaction; Medication administered at discharge. mg2 Disposition: 03/25/20 19:11 Discharged to Home. Impression: Generalized abdominal pain, Vomiting. - Condition is Stable. - Discharge Instructions: Nausea and Vomiting, Adult. - Prescriptions for promethazine 12.5 mg Rectal suppository - insert 1 suppository by RECTAL route 2 times per day; 12 suppository. - Medication Reconciliation Form, Thank You Letter, Antibiotic Education, Prescription Opioid Use form. - Follow up: Private Physician; When: 2 - 3 days; Reason: Recheck today's complaints, Continuance of care, Re-evaluation by your physician. Addendum: 03/27/2020 19:28 Co-signature as Attending Physician, Trenton Lubin MD. r n Signatures: Dispatcher [employer] EDMO Cass Horta Joel, PA PA [facility] Trenton Lubin MD MD rn Gardose, Michele, RN RN mg2 Kathy Pruett RN AMALIA ca1 Shamika Maldonado, AMALIA RN jr10 Corrections: (The following items were deleted from the chart) 03/25 17:02 15:18 TYPE AND SCREEN+[id number] ordered. EDMO EDMO 19:30 19:11 03/25/2020 19:11 Discharged to Home. Impression: Generalized abdominal pain; mg2 Vomiting. Condition is Stable. Forms are Medication Reconciliation Form, Thank You Letter, Antibiotic Education, Prescription Opioid Use. Follow up: Private Physician; When: 2 - 3 days; Reason: Recheck today's complaints, Continuance of care, Re-evaluation by your physician. [facility]
--- NOTE | 2020-03-25 19:12 | ER ---
Nurse's Notes [facility] Name: Jonathan Gutierrez Age: 34 yrs Sex: Male : 1985 Arrival Date: 03/25/2020 Time: 14:26 Bed 20 Private MD: Diagnosis: Generalized abdominal pain;Vomiting Presentation: 03/25 14:58 Chief complaint: Patient states: S/P cholecystectomy 1 week ago. N/V x 3 days, unable ca1 to tolerate food and fluids. Reports vomiting blood, bright red. Reports diarrhea with dark-colored stool. Reports hx of pancreatitis and was on TPN while at the hospital. Reports LUQ pain at this time. Coronavirus screen: Client denies travel out of the [place] in the last 14 days. At this time, the client does not indicate any symptoms associated with coronavirus-19. Ebola Screen: Patient negative for fever greater than or equal to 101.5 degrees Fahrenheit, and additional compatible Ebola Virus Disease symptoms Patient denies exposure to infectious person. Patient denies travel to an Ebola-affected area in the 21 days before illness onset. No symptoms or risks identified at this time. Initial Sepsis Screen: Does the patient meet any 2 criteria? No. Patient's initial sepsis screen is negative. Does the patient have a suspected source of infection? No. Patient's initial sepsis screen is negative. Risk Assessment: Do you want to hurt yourself or someone else? Patient reports no desire to harm self or others. Onset of symptoms was March 25, 2020. 14:58 Method Of Arrival: Ambulatory ca1 14:58 Acuity: NEO 2 ca1 Historical: - Allergies: 15:06 No Known Allergies; ca1 - PMHx: 15:06 ADD/ADHD; etoh abuse; Hypertension; liver "spot"; Pancreatitis; ca1 - PSHx: 15:06 Cholecystectomy; ca1 - Immunization history:: Adult Immunizations up to date. - Social history:: Smoking status: Patient reports the use of cigarette tobacco products, smokes one-half pack cigarettes per day. Screenin:25 Abuse screen: Denies threats or abuse. Denies injuries from another. Nutritional jr10 screening: No deficits noted. Tuberculosis screening: No symptoms or risk factors identified. Fall Risk IV access (20 points). Assessment: 15:30 General: Appears uncomfortable, Behavior is appropriate for age. Pain: Complains of jr10 pain in abdomen Pain currently is 9 out of 10 on a pain scale. Quality of pain is described as sharp, stabbing, tender, Pain began 1 day ago. Is continuous, Noted to be grimacing. Neuro: No deficits noted. Cardiovascular: No deficits noted. Respiratory: No deficits noted. Airway is patent Respiratory effort is even, unlabored, Respiratory pattern is regular, symmetrical, Breath sounds are clear bilaterally. Denies shortness of breath. GI: Abdomen is non-distended, Bowel sounds present X 4 quads. Abd is soft Abdomen is tender to palpation in right upper quadrant and left upper quadrant Reports upper abdominal pain, diarrhea, intolerance of fluids, intolerance of food, nausea, vomiting. : No deficits noted. No signs and/or symptoms were reported regarding the genitourinary system. EENT: No deficits noted. No signs and/or symptoms were reported regarding the EENT system. Derm: No deficits noted. No signs and/or symptoms reported regarding the dermatologic system. Musculoskeletal: No deficits noted. No signs and/or symptoms reported regarding the musculoskeletal system. 19:15 General: Appears in no apparent distress. comfortable, Behavior is calm, cooperative. mg2 GI: Reports upper abdominal pain. Vital Signs: 14:58 BP 144 / 109; Pulse 135; Resp 17 S; Temp 98.9(O); Pulse Ox 99% ; Weight 67.13 kg (R); ca1 Height 5 ft. 11 in. (180.34 cm); Pain 8/10; 16:00 BP 171 / 95; Pulse 113; Resp 20; Pulse Ox 100% ; Pain 7/10; jr10 16:38 BP 146 / 113; Pulse 105; Resp 20; Pulse Ox 100% on R/A; jr10 17:30 BP 149 / 99; Pulse 108; Resp 20; Pulse Ox 100% on R/A; jr10 18:00 BP 136 / 95; Pulse 105; Resp 20; Pulse Ox 100% ; jr10 18:30 BP 144 / 108; Pulse 105; Resp 20; Pulse Ox 100% ; jr10 19:29 BP 150 / 102; Pulse 105; Resp 18; Temp 98.9; Pulse Ox 100% on R/A; mg2 14:58 Body Mass Index 20.64 (67.13 kg, 180.34 cm) ca1 ED Course: 14:26 Patient arrived in ED. ag5 15:05 Triage completed. ca1 15:06 Arm band placed on right wrist. ca1 15:10 Norberto Cameron PA is PHCP. jmm 15:10 Trenton Lubin MD is Attending Physician. jmm 15:12 Shamika Maldonado RN is Primary Nurse. jr10 15:25 Patient has correct armband on for positive identification. Placed in gown. Bed in low jr10 position. Call light in reach. Side rails up X2. library monitor on. Pulse ox on. NIBP on. 15:25 Inserted saline lock: 20 gauge in right forearm, using aseptic technique. IV is patent, jr10 is intact, with fluids infusing freely, with good blood return, Flushed. 15:47 No provider procedures requiring assistance completed. jr10 15:47 Inserted saline lock: 18 gauge in left forearm, using aseptic technique. IV is patent, jr10 is intact, with good blood return, Flushed. 16:11 CT Abd/Pelvis - IV Contrast Only In Process Unspecified. EDMS 19:16 Report given to AMALIA Salamanca. jr10 19:29 IV discontinued, intact, bleeding controlled, No redness/swelling at site. Pressure mg2 dressing applied. Administered Medications: 15:46 Drug: NS 0.9% 1000 ml Route: IV; Rate: 1 bolus; Site: right forearm; jr10 16:36 Follow up: Response: No adverse reaction; IV Status: Completed infusion jr10 16:20 Drug: morphine 4 mg Route: IVP; Site: left forearm; jr10 16:20 Drug: Zofran (Ondansetron) 4 mg Route: IVP; Site: left forearm; jr10 17:17 Drug: NS 0.9% 1000 ml Route: IV; Rate: 1 bolus; Site: left forearm; jr10 18:04 Follow up: Response: No adverse reaction; IV Status: Completed infusion jr10 18:03 Drug: Reglan 10 mg Route: IVP; Site: right forearm; jr10 18:36 Follow up: Response: No adverse reaction jr10 18:04 Drug: Ativan 1 mg Route: IVP; Site: left forearm; jr10 18:36 Follow up: Response: No adverse reaction jr10 18:04 Drug: diphenhydrAMINE 25 mg Route: IVP; Site: left forearm; jr10 18:36 Follow up: Response: No adverse reaction jr10 19:28 Drug: morphine 4 mg Route: IVP; Site: right forearm; mg2 19:29 Follow up: Response: No adverse reaction; Medication administered at discharge. mg2 Outcome: 19:11 Discharge ordered by . marguerite 19:29 Discharged to home ambulatory. mg2 19:29 Condition: stable 19:29 Discharge instructions given to patient, Instructed on discharge instructions, follow up and referral plans. medication usage, Demonstrated understanding of instructions, follow-up care, medications, Prescriptions given X 1. 19:30 Patient left the ED. mg2 Signatures: Dispatcher [employer] EDMS Norberto Cameron PA PA jmm Gardose, Michele, RN RN mg2 Kathy Pruett RN RN ca1 Emerson Brady 5 Shamika Maldonado RN RN jr10 Corrections: (The following items were deleted from the chart) 15:07 14:58 BP 149 / 126; Pulse 135bpm; Resp 17bpm; Spontaneous; Pulse Ox 99%; Temp 98.9F ca1 Oral; 67.13 kg Reported; Height 5 ft. 11 in.; BMI: 20.6; Pain 8/10; ca1 16:38 16:00 BP 146 / 113; Pulse 105bpm; Resp 20bpm; Pulse Ox 100% RA; jr10 jr10
[2020-03-25 20:23] VITALS: TEMP 98.9
[2020-03-25 20:24] VITALS: O2SAT 100
[2020-03-25 20:31] VITALS: BP 150/102
--- NOTE | 2020-03-26 11:22 | EKG ---
Test Date: 2020-03-25 Test Time: 15:23:45 Desktop Manager: MEASUREMENT RESULTS: Intervals: Rate: 136 MT: 122 QRSD: 76 QT: 368 QTc: 553 [place]: P: 76 MT: 122 QRS: 82 T: 57 INTERPRETIVE STATEMENTS: Sinus tachycardia Right atrial enlargement ST & T wave abnormality, consider inferolateral ischemia Abnormal ECG Compared to ECG 03/25/2020 15:22:09 ST (T wave) deviation now present T-wave abnormality no longer present Possible ischemia still present Electronically Signed On 03-26-20 11:20:21 CDT by Jared Gutiérrez
--- NOTE | 2020-03-26 11:22 | EKG ---
Test Date: 2020-03-25 Test Time: 15:22:09 Security Rep: NATI MEASUREMENT RESULTS: Intervals: Rate: 136 OR: 120 QRSD: 80 QT: 296 QTc: 445 [place]: P: 80 OR: 120 QRS: 84 T: 11 INTERPRETIVE STATEMENTS: Sinus tachycardia Right atrial enlargement T wave abnormality, consider inferior ischemia Abnormal ECG Compared to ECG 07/29/2019 19:15:26 T-wave abnormality now present Possible ischemia now present Ventricular premature complex(es) no longer present ST (T wave) deviation no longer present Electronically Signed On 03-26-20 11:20:22 CDT by Jared Gutiérrez
== END 2020-03-25 19:30 | disposition home or self-care (01) ==
LOC: ER 14:24
DX: R11.10 Vomiting, unspecified (principal); R10.84 Generalized abdominal pain; I10 Essential (primary) hypertension; F17.210 Nicotine dependence, cigarettes, uncomplicated; Z90.49 Acquired absence of other specified parts of digestive tract
CPT/HCPCS: 36415; 74177; 80048; 80076; 82565; 83605; 83690; 84145; 84484; 85025; 85610; 87040; 93005; 99284; J1200; J2405; J2765; J7030; J7050; Q9967

== ENCOUNTER 2020-06-07 14:36 | Emergency (ER) | payer SELFPAY ==
--- OUTSIDE RECORDS SUMMARY | 2020-06-07 15:27 | XMS REPORT | Clinical Summary ---
:1985 Author Organization [facility] Address [address] [place] [address] Care Team Providers Name Role Phone Pcp Primary Care Provider Unavailable Raffaele Fierro Unavailable Allergies No Known Allergies Medications Medication Sig Dispensed Refills Start End Status Date Date cyanocobalamin Take by mouth 0 A ctive (VITAMIN B-12) 100 daily. MCG tablet sucralfate Take 1 tablet by 3 08/20/19 Ac tive (CARAFATE) 1 gram mouth 4 (four) 20 tablet times daily before meals and nightly. propranoloL Take 1 tablet (20 90 tablet 0 12/01/19 Active (INDERAL) 20 MG mg total) by 20 tablet mouth 3 (three) times daily. senna-docusate Take 1 tablet by 60 tablet 0 12/01/1911/30/2 Active (SENOKOT S) 8.6-50 mouth 2 (two) 20 021 mg per tablet times daily. warfarin (COUMADIN, Take 2 tablets (5 0 12/26/19 Active JANTOVEN) 2.5 MG mg total) by 20 tablet mouth daily. folic acid Take 1 tablet (1 30 tablet 11 02/23/20 Ac tive (FOLVITE) 1 MG mg total) by 20 021 tablet mouth daily. thiamine 100 MG Take 1 tablet 30 tablet 0 10/04/1910/02/ tablet (100 mg total) by 020 mouth daily. folic acid Take 1 tablet (1 90 tablet 0 02/16/ Di scontinued (FOLVITE) 1 MG mg total) by 020 tablet mouth daily. multivitamin Take 1 tablet by 90 tablet 0 02/17/20 Discontinued (THERAGRAN) tablet mouth daily. 020 (Stop Taking at Discharge) amLODIPine Take 1 tablet (10 30 tablet 2 03/25/20 E xpired (NORVASC) 10 MG mg total) by 019 tablet mouth daily for 90 days. nicotine (NICODERM Place 1 patch 28 patch 2 03/24/20 CQ) 21 mg/24 hr onto the skin 019 patch daily for 84 days. rivaroxaban Take 1 tablet (20 30 tablet 2 04/12/20 (XARELTO) 20 mg Tab mg total) by 019 tablet mouth daily with dinner for 90 days. pantoprazole Take 40 mg by 0 Dis continued (PROTONIX) 40 MG mouth daily. 020 (Reorder) tablet propranoloL Take 20 mg by 0 Disc ontinued (INDERAL) 20 MG mouth 3 (three) 020 (Reorder) tablet times daily. rivaroxaban Take 1 tablet (20 30 tablet 0 10/24/19 Discontinued (XARELTO) 20 mg Tab mg total) by 020 (Stop Taking at tablet mouth daily with Dis charge) dinner for 30 days. ondansetron Take 1 tablet (4 20 tablet 0 10/24/19 D iscontinued (ZOFRAN-ODT) 4 MG mg total) by 020 disintegrating mouth every 8 tablet (eight) hours as needed for up to 7 days. oxyCODONE-acetamino Take 1 tablet by 30 tablet 0 10/24/1911/09 Discontinued phen (PERCOCET) mouth every 4 020 10-325 mg per (four) hours as tablet needed for up to 10 days. Max Daily Amount: 6 tablets amLODIPine Take 1 tablet (5 30 tablet 11 10/25/19 Di scontinued (NORVASC) 5 MG mg total) by 020 (S top Taking at tablet mouth daily. Dischar ge) ondansetron Take 1 tablet (4 30 tablet 1 11/10/19 D iscontinued (ZOFRAN-ODT) 4 MG mg total) by 20 020 (Stop Taking at disintegrating mouth every 8 D ischarge) tablet (eight) hours as needed for up to 7 days. oxyCODONE-acetamino Take 1 tablet by 40 tablet 0 11/09/ 18 Discontinued phen (PERCOCET) mouth every 6 20 020 (Reorder) 10-325 mg per (six) hours as tablet needed. Max Daily Amount: 4 tablets oxyCODONE-acetamino Take 1 tablet by 40 tablet 0 12/01/19 02 phen (PERCOCET) mouth every 8 20 020 10-325 mg per (eight) hours as tablet needed for Pain for up to 15 days. Max Daily Amount: 3 tablets pantoprazole Take 1 tablet (40 30 tablet 0 12/01/19 Discontinued (PROTONIX) 40 MG mg total) by 20 020 (Reorder) tablet mouth daily. warfarin (COUMADIN, Take 1 tablet (5 90 tablet 0 12/01/1909/14 Discontinued JANTOVEN) 5 MG mg total) by 20 020 (M D tablet mouth every Disconti nued) evening for 90 days. promethazine Take 1 tablet (25 30 tablet 0 12/01/1912/07/ (PHENERGAN) 25 MG mg total) by 20 020 tablet mouth every 6 (six) hours as needed for up to 7 days. pancrelipase, Take 1 capsule 90 capsule 0 12/01/19 [id number], (24,000 units of 20 020 (CREON) lipase total) by 24,000-76,000 mouth 3 (three) -120,000 unit CpDR times daily with capsule meals for 30 days. warfarin (COUMADIN, Take 2.5 mg by 0 12/25 Discontinued JANTOVEN) 2.5 MG mouth daily. 020 (Reorder) tablet enoxaparin Inject 0.7 mLs 19.6 mL 0 12/23/19 Disc ontinued (LOVENOX) 80 mg/0.8 (70 mg total) 20 020 mL Syrg subcutaneously every 12 (twelve) hours for 14 days. enoxaparin Inject 0.7 mLs 7 mL 0 12/26/19 Expi red (LOVENOX) 80 mg/0.8 (70 mg total) 20 020 mL Syrg subcutaneously every 12 (twelve) hours for 5 days. gabapentin Take 1 capsule 90 capsule 2 12/26/19 Dis continued (NEURONTIN) 300 MG (300 mg total) by 20 020 (Stop Taking at capsule mouth 3 (three) Disc harge) times daily for 90 days. oxyCODONE-acetamino Take 1 tablet by 30 tablet 0 12/26/1906/09 phen (PERCOCET) mouth every 6 20 020 10-325 mg per (six) hours as tablet needed for up to 10 days. Max Daily Amount: 4 tablets hyoscyamine Take 1 tablet 40 tablet 0 01/25/ Expi red (LEVSIN/SL) 0.125 (125 mcg total) 20 020 mg SL tablet by mouth every 6 (six) hours for 10 days. ondansetron Take 1 tablet (4 20 tablet 0 01/26/20 E xpired (ZOFRAN-ODT) 4 MG mg total) by 20 020 disintegrating mouth every 8 tablet (eight) hours as needed for up to 7 days. oxyCODONE-acetamino Take 1 tablet by 30 tablet 0 01/26/2007/09 phen (PERCOCET) mouth every 6 20 020 10-325 mg per (six) hours for tablet 10 days. Max Daily Amount: 4 tablets pantoprazole Take 1 tablet (40 60 tablet 1 02/23/20 (PROTONIX) 40 MG mg total) by 20 020 tablet mouth 2 (two) times daily for 60 days. fludrocortisone Take 1 tablet 30 tablet 2 02/24/20 (FLORINEF) 0.1 mg (0.1 mg total) by 20 020 tablet mouth daily for 90 days. HYDROcodone-acetami Take 1 tablet by 30 tablet 0 02/23/2004/16 Discontinued nophen (NORCO mouth every 6 20 020 (S top Taking at 10-325) 10-325 mg (six) hours as Discharge) per tablet needed for up to 10 days. Max Daily Amount: [address] 1 patch 30 patch 0 02/23/20 d (LIDODERM) 5 % onto the skin 20 020 patch daily for 30 days Remove & Discard patch within 12 hours or as directed by . nicotine (NICODERM Place 1 patch 30 patch 2 02/24/20 CQ) 7 mg/24 hr onto the skin 20 020 patch daily for 90 days. ondansetron Take 1 tablet (4 20 tablet 0 02/23/20 D iscontinued (ZOFRAN-ODT) 4 MG mg total) by 20 020 disintegrating mouth every 6 tablet (six) hours as needed for up to 7 days. pregabalin (LYRICA) Take 1 capsule 60 capsule 2 02/23/2002/14 50 MG capsule (50 mg total) by 20 020 mouth 2 (two) times daily for 90 days. Max Daily Amount: 100 mg oxyCODONE-acetamino Take 1 tablet by 30 tablet 0 02/23/2010/15 Discontinued phen (PERCOCET) mouth every 8 20 020 5-325 mg per tablet (eight) hours as needed for Pain for up to 10 days. Max Daily Amount: 3 tablets ondansetron Take 1 tablet (4 20 tablet 0 03/19/20 E xpired (ZOFRAN-ODT) 4 MG mg total) by 20 020 disintegrating mouth every 6 tablet (six) hours as needed for up to 7 days. oxyCODONE-acetamino Take 1 tablet by 30 tablet 0 03/19/2029/08 phen (PERCOCET) mouth every 8 20 020 5-325 mg per tablet (eight) hours [...] Specialty Care Team Description 03/05/2020 Surgery Rosa Forte,CH AVANI Tom MD CTOMY 03/05/2020 Anesthesia Event Frank Ambrosio MD 02/28/2020 [facility], Generalized abdominal pain (Primary Dx); - Encounter Medicine MD Kashmir Acute pancreatitis, unspecified complica tion status, unspecified pancreatitis type; 03/19/2020 Radha Perez, Acute on chr onic pancreatitis (HCC); Epigastric pain; Ramona, Hyperkalemia; Cole Essential hyper tension; MD Brandon Superior mesenteric vein thrombosis (HCC ); Jannette Wan Gallbladder sludge; MD Won Splenic vein thrombosis Clement Bonilla MD Merchant, Omar, MD 02/28/2020 Travel 02/19/2020 Anesthesia Event Gastroenterology Luli Schultz MD Atkinson, Audrey Elizabeth 02/19/2020 Surgery Gastroenterology Wojciech Rincon UPPER ENDOS COPY,FNA Stevie W/ULTRASOUND 02/15/2020 [facility] Internal Janet, Epigastric pain (Primary Dx); - Encounter Medicine MD Sheldon Hematemesis with nausea; 02/23/2020 Carli Lima, Pain of uppe r abdomen; Acute on chronic pancreatitis (HCC); Kena, Adrenal insuffi ciency (HCC); MD Jeremy Other chronic p ancreatitis (HCC); Gallbladder slu dge; Hyperkalemia 02/15/2020 Orders Only General Internal Medicine 02/15/2020 Travel 01/22/2020 [facility] Internal David Mcnulty, Hemateme sis, presence of nausea not specified (Primary Dx); - Encounter Medicine Pain of upper abdomen; 01/26/2020 Fabienne Monroyintestina l hemorrhage, unspecified gastrointestinal hemorrhage type; MD Mg Superior mesenteric vein thrombosis (HCC ); Tesfaye, Supratherapeuti c INR Liza Arana MD 01/22/2020 Travel 12/17/2019 [facility] Internal Thestrup, Lars, Epigastr ic pain (Primary Dx); - Encounter Medicine Gastrointestinal hemorrhage, unspecified gastrointestinal hemorrhage type; 12/26/2019 Will Blount Elevated INR ; MD Bhumi Acute abdominal pain; Shiekh Acute on chroni c pancreatitis (HCC); Kemi Paula Other chronic pancreatitis (HCC); MD Nazanin Lactic acidosis ; Splenic vein th rombosis; 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); Supratherapeuti c INR 12/17/2019 Travel 11/21/2019 Anesthesia Event Gastroenterology Boone Gamble MD Sperling, Kathleen M, CRNA 11/21/2019 Surgery Gastroenterology Daniel Marti COLONOSCO DAVID Sheppard MD 11/18/2019 Telephone Emergency Medicine Willy Delacruz MD 11/14/2019 [facility] Internal Ala, Titilola Rectal bl eeding (Primary Dx); - Encounter Medicine MD Belkis Generalized abdominal pain; 12/01/2019 Nubia, Dehydration; Willy Li, Nausea and v omiting, intractability of vomiting not specified, unspecified vomiting type; Left upper quadrant abdominal pain; Will Blount Splenic vein thrombosis; MD Bhumi Superior mesent dali vein thrombosis (HCC); Rectal bleed; Acute liver mya lure without hepatic coma; Acute on chroni c pancreatitis (HCC); Adrenal insuffi ciency (HCC); Alcohol-induced acute pancreatitis without infection or necrosis 11/14/2019 Travel 11/07/2019 Anesthesia Event Gastroenterology Katherin Kerns MD 11/07/2019 Surgery Gastroenterology Mckenzie, Wojciech UPPER ENDOS COPY,FNA Stevie W/ULTRASOUND 10/30/2019 [facility] Internal Shinthia, Gastrointes tinal hemorrhage, unspecified gastrointestinal hemorrhage type (Primary Dx); - Encounter Medicine MD Hasmukh Alcohol-induced chronic pancreatitis (HC C); 11/10/2019 Parhisusan, Epigastric pain ; MD Clovis Splenic vein thrombosis; Anabel Freeman, History of p ancreatitis; Proctalgia; Shun Nogueira Rectal bleed; MD Jordan Hyperkalemia; Alcohol-induced acute pancreatitis without infection or necrosis; Acute on chroni c pancreatitis (HCC); Adrenal insuffi ciency (HCC) 10/30/2019 Orders Only General Internal Medicine 10/30/2019 Travel 10/21/2019 [facility] General Internal Naidu, Splenic vei n thrombosis (Primary Dx); - Encounter Medicine Juan Ardon MD Chronic pancreatitis, unspecified pancre atitis type (HCC); 10/24/2019 Gadicherla, Epigastric pain Liza Arana MD 10/21/2019 Travel after 06/07/2019 Family History Medical History Relation Name Comments Hypertension Mother Relation Name Status Comments Mother Social History Tobacco Use Types Packs/Day Years Used Date Current Every Day Smoker Cigarettes 1 Smokeless Tobacco: Former User Snuff Tobacco Cessation: Ready to Quit: No; Co unseling Given: Yes Alcohol Use Drinks/Week oz/Week Comments Yes 3 Shots of liquor 3.0 1 pint of vodk a every day [...] Assigned at Date Recorded Not on file Last Filed Vital Signs Vital Sign Reading Time Taken Comments Blood Pressure 117/79 03/19/2020 7:47 AM CDT Pulse 97 03/19/2020 7:47 AM CDT Temperature 36 C (96.8 F) 03/19/2020 7:47 AM CDT Respiratory Rate 18 03/19/2020 7:47 AM CDT Oxygen Saturation 99% 03/19/2020 7:47 AM CDT Inhaled Oxygen Concentration 21% 02/20/2020 7:47 PM CDT Weight 66.6 kg (146 lb 14.4 oz) 03/18/2020 7:02 AM CDT Height 180.3 cm (5' 11") 02/28/2020 2:30 AM CDT Body Mass Index 20.49 02/28/2020 2:30 AM CDT Plan of Treatment Health Maintenance Due Date Last Done Comments PNEUMOCOCCAL VACCINE 0-64 YRS (1 of 1 1992 - PPSV23) INFLUENZA VACCINE (#1) 2020 LIPID PANEL 10/30/2022 10/31/2019, 03/20/2019, 10/29/2018 Procedures Procedure Name Priority Date/Time Associated Comments [...] SARS-COV2/RT-PCR Routine 03/11/2020 8:27 Results for this ([facility] & REF [facility]) PM CDT procedure are [...] i n the results section. LAPAROSCOPY,CHOLECYST 03/05/2020 7:11 Other chronic ECTOMY AM CDT pancreatitis (HCC) [...] i n the results section . SARS-COV2/RT-PCR ([facility] 03/02/2020 5:07 PM CDT [...] 368 ms QTC Calculation(Bazett) 361 ms P [place] 36 degrees R [place] 54 degrees T [place] 42 degrees Sinus bradycardia Otherwise normal ECG [...] 368 ms QTC Calculation(Bazett) 379 ms P [place] 42 degrees R [place] 55 degrees T [place] 52 degrees Normal sinus rhythm Normal ECG When compared with ECG of 17:42, No significant change was fo und ECG 12-LEAD Routine 02/20/2020 10:41 PM CDT Resu lts for this procedure are in the results section . ECG 12-LEAD Routine 02/20/2020 10:39 PM CDT Procedure Note - Interface, External Ris In - 02/21/2020 12:47 AM CDT Ventricular Rate 63 BPM Atrial Rate 63 BPM P-R Interval 142 ms QRS Duration 86 ms Q-T Interval 362 ms QTC Calculation(Bazett) 370 ms P [place] 52 degrees R [place] 56 degrees T [place] 51 degrees Normal sinus rhythm Normal ECG When compared with ECG of 17:42, No significant change was fo und TROPONIN I Routine 02/20/2020 9:17 PM CDT [...] 372 ms QTC Calculation(Bazett) 374 ms P [place] 47 degrees R [place] 74 degrees T [place] 56 degrees Normal sinus rhythm Normal ECG [...] 372 ms QTC Calculation(Bazett) 374 ms P [place] 53 degrees R [place] 74 degrees T [place] 58 degrees Normal sinus rhythm Early repolarization [...] n the results section. UPPER ENDOSCOPY,BIOPSY 02/19/2020 1:11 Chronic biliar y PM CDT pancreatitis (HCC) UPPER ENDOSCOPY,FNA 02/19/2020 1:11 Chronic biliary W/ULTRASOUND PM CDT pancreatitis (HCC) [...] 394 ms QTC Calculation(Bazett) 439 ms R [place] 66 degrees T [place] 52 degrees Normal sinus rhythm Early repolarization [...] 348 ms QTC Calculation(Bazett) 546 ms P [place] 73 degrees R [place] 84 degrees T [place] 69 degrees Sinus tachycardia Right atrial enlargement Borderline ECG When compared with ECG of 11:26, No significant change was fo und RHYTHM STRIP - SCAN 02/04/2020 12:10 PM CDT RHYTHM STRIP - SCAN 01/28/2020 2:50 PM CDT PROTHROMBIN TIME/INR Routine 01/26/2020 5:13 Res ults for this AM CDT procedure are i n the results section. CBC W/PLT COUNT & Routine 01/25/2020 4:07 Result s for this AUTO DIFFERENTIAL AM CDT procedure are in the results section. PROTHROMBIN TIME/INR Routine 01/25/2020 4:07 Res ults for this AM CDT procedure are i n the results section. CBC W/PLT COUNT & Routine 01/25/2020 4:07 Result s for this AUTO DIFFERENTIAL AM CDT procedure are in the results section. PHOSPHORUS Routine 01/25/2020 4:07 Results for this AM CDT procedure are i n the results section. MAGNESIUM Routine 01/25/2020 4:07 Results for this AM CDT procedure are i n the results section. HEPATIC FUNCTION Routine 01/25/2020 4:07 Results for this PANEL AM CDT procedure are i n the results section. BASIC METABOLIC PANEL Routine 01/25/2020 4:07 Re sults for this (7) AM CDT procedure are i n the results section. CT ABD/PELVIS - STAT 01/25/2020 12:40 Results for this PANCREAS EVALUATION AM CDT procedur e are in the results section. SARS-COV2/RT-PCR Routine 01/24/2020 6:32 Results for this ([facility] & REF LABS) PM CDT procedure are in the results section. PROTHROMBIN TIME/INR Routine 01/24/2020 12:36 Res ults for this PM CDT procedure are i n the results section. CBC W/PLT COUNT & Routine 01/24/2020 4:00 Result s for this AUTO DIFFERENTIAL AM CDT procedure are in the results section. CBC W/PLT COUNT & Routine 01/24/2020 4:00 Result s for this AUTO DIFFERENTIAL AM CDT procedure are in the results section. PHOSPHORUS Routine 01/24/2020 4:00 Results for this AM CDT procedure are i n the results section. MAGNESIUM Routine 01/24/2020 4:00 Results for this AM CDT procedure are i n the results section. HEPATIC FUNCTION Routine 01/24/2020 4:00 Results for this PANEL AM CDT procedure are i n the results section. BASIC METABOLIC PANEL Routine 01/24/2020 4:00 Re sults for this (7) AM CDT procedure are i n the results section. CBC (HEMOGRAM ONLY) Routine 01/23/2020 7:53 Resu lts for this PM CDT procedure are i n the results section. ETHANOL Routine 01/23/2020 7:53 Results for this PM CDT procedure are i n the results section. PROTHROMBIN TIME/INR Routine 01/23/2020 1:34 Res ults for this PM CDT procedure are i n the results section. CBC (HEMOGRAM ONLY) Routine 01/23/2020 10:52 Resu lts for this AM CDT procedure are i n the results section. CBC W/PLT COUNT & Routine 01/23/2020 5:06 Result s for this AUTO DIFFERENTIAL AM CDT procedure are in the results section. LACTIC ACID, VENOUS Routine 01/23/2020 5:06 Resu lts for this AM CDT procedure are i n the results section. CBC W/PLT COUNT & Routine 01/23/2020 5:06 Result s for this AUTO DIFFERENTIAL AM CDT procedure are in the results section. PHOSPHORUS Routine 01/23/2020 5:06 Results for this AM CDT procedure are i n the results section. MAGNESIUM Routine 01/23/2020 5:06 Results for this AM CDT procedure are i n the results section. HEPATIC FUNCTION Routine 01/23/2020 5:06 Results for this PANEL AM CDT procedure are i n the results section. BASIC METABOLIC PANEL Routine 01/23/2020 5:06 Re sults for this (7) AM CDT procedure are i n the results section. SARS-COV2/RT-PCR STAT 01/22/2020 11:49 Results for this ([facility]) PM CDT procedure are in the results section. CBC W/PLT COUNT & STAT 01/22/2020 6:24 Result s for this AUTO DIFFERENTIAL PM CDT procedure are in the results section. COMPREHENSIVE STAT 01/22/2020 6:24 Results fo r this METABOLIC PANEL PM CDT procedure ar e in the results section. LIPASE STAT 01/22/2020 6:24 Results for this PM CDT procedure are i n the results section. PT/APTT STAT 01/22/2020 6:24 Results for this PM CDT procedure are i n the results section. CBC W/PLT COUNT & STAT 01/22/2020 6:24 Result s for this AUTO DIFFERENTIAL PM CDT procedure are in the results section. RHYTHM STRIP - SCAN 12/29/2019 1:11 PM CDT PROTHROMBIN TIME/INR Routine 12/26/2019 3:56 Res ults for this AM CDT procedure are i n the results section. PROTHROMBIN TIME/INR Routine 12/25/2019 4:15 Res ults for this AM CDT procedure are i n the results section. PROTHROMBIN TIME/INR Routine 12/24/2019 3:55 Res ults for this AM CDT procedure are i n the results section. PROTHROMBIN TIME/INR Routine 12/23/2019 5:10 Res ults for this AM CDT procedure are i n the results section. CBC W/PLT COUNT & Routine 12/22/2019 4:52 Result s for this AUTO DIFFERENTIAL AM CDT procedure are in the results section. PROTHROMBIN TIME/INR Routine 12/22/2019 4:52 Res ults for this AM CDT procedure are i n the results section. PROTHROMBIN TIME/INR Routine 12/22/2019 4:52 Res ults for this AM CDT procedure are i n the results section. BASIC METABOLIC PANEL Routine 12/22/2019 4:52 Re sults for this (7) AM CDT procedure are i n the results section. CBC W/PLT COUNT & Routine 12/22/2019 4:52 Result s for this AUTO DIFFERENTIAL AM CDT procedure are in the results section. POCT-GLUCOSE METER Routine 12/21/2019 5:31 Resul ts for this PM CDT procedure are i n the results section. CBC W/PLT COUNT & Routine 12/21/2019 4:27 Result s for this AUTO DIFFERENTIAL AM CDT procedure are in the results section. PROTHROMBIN TIME/INR Routine 12/21/2019 4:27 Res ults for this AM CDT procedure are i n the results section. BASIC METABOLIC PANEL Routine 12/21/2019 4:27 Re sults for this (7) AM CDT procedure are i n the results section. CBC W/PLT COUNT & Routine 12/21/2019 4:27 Result s for this AUTO DIFFERENTIAL AM CDT procedure are in the results section. PROTHROMBIN TIME/INR Routine 12/20/2019 3:53 Res ults for this AM CDT procedure are i n the results section. BASIC METABOLIC PANEL Routine 12/20/2019 3:53 Re sults for this (7) AM CDT procedure are i n the results section. TRANSFUSION SERVICE 12/19/2019 5:51 REPORT - SCAN PM CDT CBC W/PLT COUNT & Routine 12/19/2019 5:37 Result s for this AUTO DIFFERENTIAL AM CDT procedure are in the results section. COMPREHENSIVE Routine 12/19/2019 5:37 Results fo r this METABOLIC PANEL AM CDT procedure ar e in the results section. CBC W/PLT COUNT & Routine 12/19/2019 5:37 Result s for this AUTO DIFFERENTIAL AM CDT procedure are in the results section. PROTHROMBIN TIME/INR Routine 12/19/2019 5:37 Res ults for this AM CDT procedure are i n the results section. POCT-GLUCOSE METER Routine 12/18/2019 9:47 Resul ts for this PM CDT procedure are i n the results section. DRUG SCREEN, URINE, Routine 12/18/2019 10:28 COMPREHENSIVE AM CDT URINALYSIS WITH Routine 12/18/2019 10:28 Results for this MICROSCOPIC IF AM CDT procedure are in INDICATED the results section. RAPID DRUG SCREEN, STAT 12/18/2019 10:28 Resul ts for this URINE AM CDT procedure are i n the results section. LACTIC ACID, VENOUS STAT 12/18/2019 10:26 Resu lts for this AM CDT procedure are i n the results section. TROPONIN I Routine 12/18/2019 10:26 Results for this AM CDT procedure are i n the results section. POCT-GLUCOSE METER Routine 12/18/2019 6:52 Resul ts for this AM CDT procedure are i n the results section. BLOOD GAS, ARTERIAL STAT 12/18/2019 6:43 Resu lts for this AM CDT procedure are i n the results section. POCT-GLUCOSE METER Routine 12/18/2019 6:23 Resul ts for this AM CDT procedure are i n the results section. CBC W/PLT COUNT & Routine 12/18/2019 2:29 Result s for this AUTO DIFFERENTIAL AM CDT procedure are in the results section. TYPE AND SCREEN, STAT 12/18/2019 2:29 Results for this AUTOMATED AM CDT procedure are i n the results section. CBC W/PLT COUNT & Routine 12/18/2019 2:29 Result s for this AUTO DIFFERENTIAL AM CDT procedure are in the results section. PROTHROMBIN TIME/INR Routine 12/18/2019 2:29 Res ults for this AM CDT procedure are i n the results section. BASIC METABOLIC PANEL Routine 12/18/2019 2:29 Re sults for this (7) AM CDT procedure are i n the results section. TROPONIN I Routine 12/18/2019 2:29 Results for this AM CDT procedure are i n the results section. LACTIC ACID, VENOUS STAT 12/18/2019 2:29 Resu lts for this AM CDT procedure are i n the results section. SARS-COV2/RT-PCR STAT 12/18/2019 12:15 Results for this ([facility]) AM CDT procedure are in the results section. BLOOD CULTURE STAT 12/17/2019 10:07 Results fo r this PM CDT procedure are i n the results section. BLOOD CULTURE STAT 12/17/2019 10:07 Results fo r this PM CDT procedure are i n the results section. CT ABDOMEN/PELVIS STAT 12/17/2019 10:04 Result s for this WITH IV CONTRAST PM CDT procedure a re in the results section. LACTIC ACID, VENOUS STAT 12/17/2019 8:35 Resu lts for this PM CDT procedure are i n the results section. PT/APTT STAT 12/17/2019 8:10 Results for this PM CDT procedure are i n the results section. OCCULT BLOOD, STOOL STAT 12/17/2019 8:10 Resu lts for this PM CDT procedure are i n the results section. CBC W/PLT COUNT & STAT 12/17/2019 8:04 Result s for this AUTO DIFFERENTIAL PM CDT procedure are in the results section. COMPREHENSIVE STAT 12/17/2019 8:04 Results fo r this METABOLIC PANEL PM CDT procedure ar e in the results section. LIPASE STAT 12/17/2019 8:04 Results for this PM CDT procedure are i n the results section. CBC W/PLT COUNT & STAT 12/17/2019 8:04 Result s for this AUTO DIFFERENTIAL PM CDT procedure are in the results section. RHYTHM STRIP - SCAN 12/03/2019 1:10 PM CDT CBC W/PLT COUNT & Routine 12/01/2019 3:42 Result s for this AUTO DIFFERENTIAL AM CDT procedure are in the results section. PROTHROMBIN TIME/INR Routine 12/01/2019 3:42 Res ults for this AM CDT procedure are i n the results section. BASIC METABOLIC PANEL Routine 12/01/2019 3:42 Re sults for this (7) AM CDT procedure are i n the results section. CBC W/PLT COUNT & Routine 12/01/2019 3:42 Result s for this AUTO DIFFERENTIAL AM CDT procedure are in the results section. CBC W/PLT COUNT & Routine 11/30/2019 5:53 Result s for this AUTO DIFFERENTIAL AM CDT procedure are in the results section. PROTHROMBIN TIME/INR Routine 11/30/2019 5:53 Res ults for this AM CDT procedure are i n the results section. BASIC METABOLIC PANEL Routine 11/30/2019 5:53 Re sults for this (7) AM CDT procedure are i n the results section. CBC W/PLT COUNT & Routine 11/30/2019 5:53 Result s for this AUTO DIFFERENTIAL AM CDT procedure are in the results section. CBC W/PLT COUNT & Routine 11/29/2019 4:24 Result s for this AUTO DIFFERENTIAL AM CDT procedure are in the results section. PROTHROMBIN TIME/INR Routine 11/29/2019 4:24 Res ults for this AM CDT procedure are i n the results section. BASIC METABOLIC PANEL Routine 11/29/2019 4:24 Re sults for this (7) AM CDT procedure are i n the results section. CBC W/PLT COUNT & Routine 11/29/2019 4:24 Result s for this AUTO DIFFERENTIAL AM CDT procedure are in the results section. PROTHROMBIN TIME/INR Routine 11/29/2019 4:24 Res ults for this AM CDT procedure are i n the results section. PROTHROMBIN TIME/INR Routine 11/28/2019 3:33 Res ults for this AM CDT procedure are i n the results section. BASIC METABOLIC PANEL Routine 11/28/2019 3:32 Re sults for this (7) AM CDT procedure are i n the results section. CBC (HEMOGRAM ONLY) Routine 11/28/2019 3:32 Resu lts for this AM CDT procedure are i n the results section. BASIC METABOLIC PANEL Routine 11/27/2019 3:46 Re sults for this (7) AM CDT procedure are i n the results section. PROTHROMBIN TIME/INR Routine 11/27/2019 3:46 Res ults for this AM CDT procedure are i n the results section. CBC W/PLT COUNT & Routine 11/27/2019 3:45 Result s for this AUTO DIFFERENTIAL AM CDT procedure are in the results section. CBC W/PLT COUNT & Routine 11/27/2019 3:45 Result s for this AUTO DIFFERENTIAL AM CDT procedure are in the results section. BASIC METABOLIC PANEL Routine 11/26/2019 4:26 Re sults for this (7) AM CDT procedure are i n the results section. PROTHROMBIN TIME/INR Routine 11/26/2019 3:43 Res ults for this AM CDT procedure are i n the results section. CBC (HEMOGRAM ONLY) Routine 11/26/2019 3:43 Resu lts for this AM CDT procedure are i n the results section. US RENAL COMPLETE Routine 11/25/2019 1:15 Result s for this PM CDT procedure are i n the results section. ALDOSTERONE Routine 11/25/2019 11:09 Results for this AM CDT procedure are i n the results section. CORTISOL Routine 11/25/2019 11:09 Results for this AM CDT procedure are i n the results section. PROTHROMBIN TIME/INR Routine 11/25/2019 3:26 Res ults for this AM CDT procedure are i n the results section. BASIC METABOLIC PANEL Routine 11/25/2019 3:26 Re sults for this (7) AM CDT procedure are i n the results section. CBC (HEMOGRAM ONLY) Routine 11/25/2019 3:26 Resu lts for this AM CDT procedure are i n the results section. CBC W/PLT COUNT & Routine 11/24/2019 3:33 Result s for this AUTO DIFFERENTIAL AM CDT procedure are in the results section. BASIC METABOLIC PANEL Routine 11/24/2019 3:33 Re sults for this (7) AM CDT procedure are i n the results section. CBC W/PLT COUNT & Routine 11/24/2019 3:33 Result s for this AUTO DIFFERENTIAL AM CDT procedure are in the results section. BASIC METABOLIC PANEL Routine 11/23/2019 2:37 Re sults for this (7) PM CDT procedure are i n the results section. BASIC METABOLIC PANEL Routine 11/23/2019 5:56 Re sults for this (7) AM CDT procedure are i n the results section. CBC (HEMOGRAM ONLY) Routine 11/23/2019 5:56 Resu lts for this AM CDT procedure are i n the results section. BASIC METABOLIC PANEL Routine 11/22/2019 5:19 Re sults for this (7) PM CDT procedure are i n the results section. COMPREHENSIVE Routine 11/22/2019 8:17 Results fo r this METABOLIC PANEL AM CDT procedure ar e in the results section. CBC W/PLT COUNT & Routine 11/22/2019 5:29 Result s for this AUTO DIFFERENTIAL AM CDT procedure are in the results section. CBC W/PLT COUNT & Routine 11/22/2019 5:29 Result s for this AUTO DIFFERENTIAL AM CDT procedure are in the results section. REPORT OF PROCEDURE - 11/21/2019 3:07 ENDOSCOPY URL PM CDT COLONOSCOPY 11/21/2019 2:04 Gastrointestinal PM CDT hemorrhage, unspecified gastrointestinal hemorrhage type BASIC METABOLIC PANEL Routine 11/21/2019 3:35 Re sults for this (7) AM CDT procedure are i n the results section. CBC (HEMOGRAM ONLY) Routine 11/21/2019 3:35 Resu lts for this AM CDT procedure are i n the results section. CBC (HEMOGRAM ONLY) Routine 11/20/2019 3:35 Resu lts for this AM CDT procedure are i n the results section. BASIC METABOLIC PANEL Routine 11/20/2019 3:35 Re sults for this (7) AM CDT procedure are i n the results section. [id number]-[id number] I Routine 11/19/2019 4:29 Re sults for this IGA AM CDT procedure are i n the results section. [id number]-[id number] I Routine 11/19/2019 4:29 Re sults for this IGM AM CDT procedure are i n the results section. [id number]-4-[id number] I Routine 11/19/2019 4:29 Re sults for this IGG AM CDT procedure are i n the results section. FACTOR 5 LEIDEN PCR Routine 11/19/2019 4:29 Resu lts for this (THROMBOTIC RISK) AM CDT procedure are in the results section. PROTHROMBIN GENE Routine 11/19/2019 4:29 Results for this MUTATION AM CDT procedure are i n the results section. BETA-2 GLYCOPROTEIN Routine 11/19/2019 4:29 Resu lts for this ANTIBODIES AM CDT procedure are i n the results section. CARDIOLIPIN Routine 11/19/2019 4:29 Results for this ANTIBODIES, IGG AND AM CDT procedur e are in IGM the results section. JAK2 MUTATION (V617F) Routine 11/19/2019 4:29 Re sults for this QUANTITATIVE AM CDT procedure are i n the results section. CBC (HEMOGRAM ONLY) Routine 11/19/2019 4:29 Resu lts for this AM CDT procedure are i n the results section. BASIC METABOLIC PANEL Routine 11/19/2019 4:29 Re sults for this (7) AM CDT procedure are i n the results section. BASIC METABOLIC PANEL Routine 11/18/2019 3:08 Re sults for this (7) PM CDT procedure are i n the results section. CBC W/PLT COUNT & Routine 11/18/2019 3:33 Result s for this AUTO DIFFERENTIAL AM CDT procedure are in the results section. LACTIC ACID, VENOUS Routine 11/18/2019 3:33 Resu lts for this AM CDT procedure are i n the results section. CBC W/PLT COUNT & Routine 11/18/2019 3:33 Result s for this AUTO DIFFERENTIAL AM CDT procedure are in the results section. COMPREHENSIVE Routine 11/18/2019 3:33 Results fo r this METABOLIC PANEL AM CDT procedure ar e in the results section. CBC W/PLT COUNT & Routine 11/17/2019 9:36 Result s for this AUTO DIFFERENTIAL PM CDT procedure are in the results section. PROCALCITONIN Routine 11/17/2019 9:36 Results fo r this PM CDT procedure are i n the results section. LACTIC ACID, VENOUS Routine 11/17/2019 9:36 Resu lts for this PM CDT procedure are i n the results section. COMPREHENSIVE Routine 11/17/2019 9:36 Results fo r this METABOLIC PANEL PM CDT procedure ar e in the results section. CBC W/PLT COUNT & Routine 11/17/2019 9:36 Result s for this AUTO DIFFERENTIAL PM CDT procedure are in the results section. TROPONIN I STAT 11/17/2019 9:36 Results for this PM CDT procedure are i n the results section. REPORT OF PROCEDURE - 11/17/2019 2:40 ENDOSCOPY SCAN PM CDT MR ABDOMEN WITH & CRYSTAL 11/17/2019 9:08 Result s for this WITHOUT IV CONTRAST AM CDT procedur e are in the results section. ETHANOL Routine 11/14/2019 7:05 Results for this PM CDT procedure are i n the results section. TROPONIN I STAT 11/14/2019 7:05 Results for this PM CDT procedure are i n the results section. ECG 12-LEAD Routine 11/14/2019 11:26 AM CDT Procedure Note - Interface, External Ris In - 11/17/2019 1:45 PM CDT Ventricular Rate 129 BPM Atrial Rate 129 BPM P-R Interval 138 ms QRS Duration 86 ms Q-T Interval 298 ms QTC Calculation(Bazett) 436 ms P [place] 65 degrees R [place] 61 degrees T [place] 51 degrees Sinus tachycardia Possible Left atrial enlarge ment Borderline ECG When compared with ECG of 01:36, Vent. rate has increased BY 53 BPM ECG 12-LEAD STAT 11/14/2019 11:26 Results for this AM CDT procedure are i n the results section. CBC W/PLT COUNT & STAT 11/14/2019 11:17 Result s for this AUTO DIFFERENTIAL AM CDT procedure are in the results section. TROPONIN I STAT 11/14/2019 11:17 Results for this AM CDT procedure are i n the results section. PHOSPHORUS STAT 11/14/2019 11:17 Results for this AM CDT procedure are i n the results section. MAGNESIUM STAT 11/14/2019 11:17 Results for this AM CDT procedure are i n the results section. PROTHROMBIN TIME/INR STAT 11/14/2019 11:17 Res ults for this AM CDT procedure are i n the results section. CBC W/PLT COUNT & STAT 11/14/2019 11:17 Result s for this AUTO DIFFERENTIAL AM CDT procedure are in the results section. LIPASE STAT 11/14/2019 11:17 Results for this AM CDT procedure are i n the results section. HEPATIC FUNCTION STAT 11/14/2019 11:17 Results for this PANEL AM CDT procedure are i n the results section. BASIC METABOLIC STAT 11/14/2019 11:17 Results for this PANEL (7) AM CDT procedure are i n the results section. XR CHEST 1 VIEW STAT 11/14/2019 11:14 Results for this PORTABLE/BEDSIDE AM CDT procedure a re in the results section. RHYTHM STRIP - SCAN 11/12/2019 8:30 AM CDT RHYTHM STRIP - SCAN 11/10/2019 1:37 PM CDT BASIC METABOLIC Routine 11/10/2019 5:21 Results for this PANEL (7) AM CDT procedure are i n the results section. CORTISOL,60 MIN Routine 11/09/2019 3:36 Results for this PM CDT procedure are i n the results section. CORTISOL,30 MIN Routine 11/09/2019 3:10 Results for this PM CDT procedure are i n the results section. ACTH STIMULATION Routine 11/09/2019 3:10 Results for this PM CDT procedure are i n the results section. BASIC METABOLIC Routine 11/09/2019 3:10 Results for this PANEL (7) PM CDT procedure are i n the results section. CORTISOL,BASELINE Routine 11/09/2019 2:27 Result s for this PM CDT procedure are i n the results section. ACTH STIMULATION Routine 11/09/2019 2:27 Results for this PM CDT procedure are i n the results section. CORTISOL Routine 11/08/2019 8:22 Results for this AM CDT procedure are i n the results section. ALDOSTERONE Routine 11/08/2019 8:22 Results for this AM CDT procedure are i n the results section. RENIN, PLASMA Routine 11/08/2019 8:22 Results fo r this AM CDT procedure are i n the results section. BASIC METABOLIC Routine 11/08/2019 4:14 Results for this PANEL (7) AM CDT procedure are i n the results section. CBC (HEMOGRAM ONLY) Routine 11/08/2019 4:14 Resu lts for this AM CDT procedure are i n the results section. REPORT OF PROCEDURE 11/07/2019 12:17 - ENDOSCOPY URL PM CDT TISSUE EXAM AP Routine 11/07/2019 11:22 Results for this AM CDT procedure are i n the results section. UPPER 11/07/2019 11:04 Abdominal pain, ENDOSCOPY,BIOPSY AM CDT unspecified abdominal location Special Needs (LINEAR SCOPE) UPPER ENDOSCOPY,FNA 11/07/2019 11:04 AM CDT Abdominal pain, unspecified W/ULTRASOUND abdominal [...] 356 ms QTC Calculation(Bazett) 400 ms P [place] 55 degrees R [place] 62 degrees T [place] 62 degrees Normal sinus rhythm Normal ECG [...] 352 ms QTC Calculation(Bazett) 396 ms P [place] 46 degrees R [place] 54 degrees T [place] 50 degrees Normal sinus rhythm Normal ECG [...] 288 ms QTC Calculation(Bazett) 438 ms P [place] 75 degrees R [place] 80 degrees T [place] 71 degrees Sinus tachycardia Biatrial enlargement Abnormal [...] i n the results section . after 06/07/2019 Results EKG-SCANNED (03/23/2020 3:01 PM CDT)Only the [...] of6 resultswithin the time period is included. Pathologist Sig nature Potassium 5.7 (H) 3.5 - 5.1 meq/L [facility] Specimen Blood Narrative Performed At Canvas Worker Apprentice ID - IDALIA Dodd [facility] Performing Organization Address City/State/Zipcode Phone Number [facility] [address] [place] [address] CENTER SARS-CoV2/RT-PCR (Asymptomatic ONLY) (03/19/2020 5:45 AM CDT)Only the most recent of8 resultswithin the time period is included. SARS-COV2/RT-PCR Negative Not Detected, [facility] Negative, See [facility] external report CENTER for linked test SARS-COV-2 [facility] WOOD [facility] PERFORMING LAB [facility] Specimen Other - Nasopharyngeal wall structure (b corazon structure) Narrative Performed At Negative result for this test determines that [facility] SARS-CoV-2 RNA was not present in the [...] the Act. Fact Sheet for Healthcare Providers: https://www.[employer] D[employer]/sites/default/files/pro duct/documents/Fact_Sheet_HC_Providers_Lyra_SA RS-CoV-2.pdf Fact Sheet for Healthcare Patients: https://www.[employer]/sites/default/files/pro duct/documents/Fact_Sheet_Patients_Lyra_SARS-C oV-2.pdf Performing Laboratory: [address] [address] Performing Organization Address City/State/Zipcode Phone Number [place] [phone] CENTER CBC with platelet count + automated diff (03/19/2020 5:33 AM CDT)Only the most recent of52 resultswithin the time period is included. Pathologist Sig nature WBC 5.7 3.5 - 10.5 [facility] K/L [facility] RBC 3.52 (L) 4.63 - 6.08 [facility] M/L [facility] Hemoglobin 10.5 (L) 13.7 - 17.5 [facility] GM/DL [facility] Hematocrit 34.0 (L) 40.1 - 51.0 % [facility] MCV 96.6 (H) 79.0 - 92.2 fL [facility] MCH 29.8 25.7 - 32.2 pg [facility] MCHC 30.9 (L) 32.3 - 36.5 [facility] GM/DL [facility] RDW 13.9 11.6 - 14.4 % [facility] Platelets 159 150 - 450 K/CU [facility] MPV 10.4 9.4 - 12.4 fL [facility] nRBC 0 0 - 0 /100 WBC [facility] % Neutros 52 % [facility] % Lymphs 33 % [facility] % Monos 8 % [facility] % Eos 3 % [facility] % Baso 1 % [facility] # Neutros 2.95 1.78 - 5.38 [facility] # Lymphs 1.86 1.32 - 3.57 [facility]/L [facility] # Monos 0.46 0.30 - 0.82 [facility]/L [facility] # Eos 0.17 0.04 - 0.54 [facility] # Baso 0.06 0.01 - 0.08 [facility] Immature 3 (H) 0 - 1 % [facility] Specimen Blood - Central venous catheter, device (physical object) Performing Organization Address City/[facility] Phone Number [address] [address] CENTER Phosphorus (03/19/2020 5:33 AM CDT)Only the most recent of18 resultswithin the time period is included. Pathologist Sig nature Phosphorus 3.6 2.3 - 4.7 mg/dL [facility] Specimen Blood - Central venous catheter, device (physical object) Narrative Performed At Canvas Worker Apprentice [facility] - [facility] Performing Organization Address [facility] Phone Number [address] [address] CENTER Magnesium (03/19/2020 5:33 AM CDT)Only the most recent of26 resultswithin the time period is included. Pathologist Sig nature Magnesium 1.7 1.6 - 2.6 mg/dL [facility] Specimen Blood - Central venous catheter, device (physical object) Narrative Performed At Canvas Worker Apprentice ID - [facility] Performing Organization Address City/State/Zipcode Phone Number [facility] [address] [place] [address] CENTER Comprehensive metabolic panel (03/19/2020 5:33 AM CDT)Only the most recent of21 resultswithin the time period is included. Protein, Total 7.1 6.0 - 8.3 [facility] gm/dL [facility] Albumin 4.1 3.5 - 5.0 [facility] g/dL [facility] Alkaline 120 40 - 150 U/L [facility] Phosphatase [facility] Total Bilirubin 0.2 0.2 - 1.2 [facility] mg/dL [facility] Sodium 138 136 - 145 [facility] meq/L [facility] Potassium 6.1 (HH) 3.5 - 5.1 [facility] meq/L [facility] Chloride 108 (H) 98 - 107 [facility] meq/L [facility] CO2 24 22 - 29 meq/L [facility] BUN 10 7 - 21 mg/dL [facility] Creatinine 0.64 0.57 - 1.25 [facility] mg/dL [facility] Glucose 91 70 - 105 [facility] mg/dL [facility] Calcium 9.3 8.4 - 10.2 [facility] mg/dL [facility] AST 24 5 - 34 U/L [facility] ALT 59 (H) 6 - 55 U/L [facility] EGFR 144Comment: mL/min/1.73 [facility] ESTIMATED GFR IS sq [facility] NOT ACCURATE MEDICAL CENTER CREATININE CLEARANCE IN PREDICTING GLOMERULAR FILTRATION RATE. ESTIMATED GFR IS NOT APPLICABLE FOR DIALYSIS PATIENTS. Specimen Blood - Central venous catheter, device (physical object) Narrative Performed At Canvas Worker Apprentice ID - NELSYASI [facility] Performing Organization Address City/State/Zipcode Phone Number [facility] [address] [place] [address] CENTER Triglycerides (03/10/2020 4:13 AM CDT) Pathologist Sig nature Triglycerides 74 mg/dL [facility] [place] Specimen Blood Narrative Performed At [facility] Low Risk <150 Borderline Risk 150-199 High Risk 200-499 Very High Risk >=500 Canvas Worker Apprentice AQUILES Dodd Performing Organization Address [facility] Phone Number [address] [address] [place] Hepatic function panel (03/10/2020 4:13 AM CDT)Only the most recent of18 resultswithin the time period is included. Pathologist Sig nature Protein, Total 6.3 6.0 - 8.3 gm/dL [facility] Albumin 3.7 3.5 - 5.0 g/dL [facility] Total Bilirubin 0.2 0.2 - 1.2 mg/dL [facility] Bilirubin, Direct 0.1 0.1 - 0.5 mg/dL [facility] Alkaline Phosphatase 140 40 - 150 U/L [facility] AST 62 (H) 5 - 34 U/L [facility] ALT 127 (H) 6 - 55 U/L [facility] Specimen Blood Narrative Performed At Canvas Worker Apprentice AQUILES Dodd [facility] Performing Organization Address City/[facility] Phone Number [facility] [address] [place] [phone] CENTER Basic Metabolic Panel (03/10/2020 4:13 AM CDT)Only the most recent of66 results within the time period is included. Sodium 140 136 - 145 meq/L [facility] Potassium 3.8 3.5 - 5.1 meq/L [facility] Chloride 106 98 - 107 meq/L [facility] CO2 25 22 - 29 meq/L [facility] BUN 3 (L) 7 - 21 mg/dL [facility] Creatinine 0.64 0.57 - 1.25 [facility] mg/dL [facility] Glucose 137 (H) 70 - 105 mg/dL [facility] Calcium 8.5 8.4 - 10.2 [facility] mg/dL [facility] EGFR 144Comment: mL/min/1.73 sq [facility] ESTIMATED GFR IS NOT m [facility] ACCURATE CENTER CREATININE CLEARANCE IN PREDICTING GLOMERULAR FILTRATION RATE. ESTIMATED GFR IS NOT APPLICABLE FOR DIALYSIS PATIENTS. Specimen Blood Narrative Performed At Canvas Worker Apprentice ID - MATI Calderon [facility] ICA CENTER Performing Organization Address City/State/Zipcode Phone Number [facility] [address] [place] [address] CENTER XR chest 1 view portable / bedside (03/09/2020 3:17 PM CDT)Only the most recent of2 resultswithin the time period is included. Specimen Narrative Performed At FINAL REPORT GE RIS INDICATION: post picc line insertion COMPARISON: None TECHNIQUE: Single frontal view of the est. FINDINGS: Lungs and pleura: Clear lungs. No effusi on. Heart and mediastinum: Normal heart size . Unremarkable mediastinal contours. Osseous structures: No acute abnormality . Other: PICC tip overlies the SVC. IMPRESSION: No acute intrathoracic abnormality. Signed: Purvi Mast MD Report Verified Date/Time: 03/09/2020 15:36:17 [place] Location: [facility] y Reading Room Procedure Note Interface, External [...] Verified Date/Time: 03/09/2020 1 5:36:17 [place] Location: [facility] Reading Room Performing Organization Address City/State/Zipcode Phone Number [employer] [place] hepatobiliary (HIDA) scan (03/08/2020 12:26 PM CDT) Specimen Narrative Performed At FINAL REPORT [employer] PROCEDURE: HEPATOBILIARY SCAN CPT CODE: 15484 INDICATION: Perforation, bile d uct PROTOCOL: 5.4 mCi of Tc-99m meb rofenin was injected intravenously. Images of the upper abdom en were obtained for approximately 75 minutes after tracer in jection. FINDINGS: Initial tracer u ptake into the liver is physiological. Subsequent tracer clearan ce from the liver proceeds normally. There is good visualization of the extrahepatic biliary duct and the tracer appears appropriatel y in the small bowel. There is no tracer activity outside the approp riate anatomic structures. IMPRESSION: 1.Normal hepatobiliary scan. 2.No evidence of biliary leak. Signed: David Caal MD Report Verified Date/Time: 03/08/2020 13:48:03 [place] Location: [address] Reading Room Procedure Note Interface, External Ris In - 03/08/2020 1:50 PM CDT FINAL REPORT PROCEDURE: HEPATOBILIARY SCAN CPT CODE: [id number] INDICATION: Perforation, bile duct PROTOCOL: 5.4 mCi [...] Verified Date/Time: 03/08/2020 1 3:48:03 [place] Location: [address] [address] Reading Room Performing Organization Address City/State/Zipcode Phone Number [facility]AR[facility] Lipase (03/07/2020 3:39 AM CDT)Only the most recent of8 resultswithin the time period is included. Pathologist Sig nature Lipase >1200 (H) 8 - 78 U/L [facility] Specimen Blood Narrative Performed At Canvas Worker Apprentice ID - ANA Puri [facility] Performing Organization Address City/State/Zipcode Phone Number [facility] MEDICAL [address] [place] [phone] abdomen/pelvis with IV contrast (03/06/2020 8:18 PM CDT)Only the most recent of5 resultswithin the time period is included. Specimen Narrative Performed At FINAL REPORT [facility]ARLA MUHAMM[facility] CT, ABDOMEN \\T\\ PELVIS, WITH IV CONTRAST INDICATION: Abdominal pain, acute (Ped 0 -18y) COMPARISON: None TECHNIQUE: Post contrast abdomen and pelvis CT. C oronal and sagittal reformatted images obtained. DOSE REDUCTION: [...] Dayana Garces MD Report Verified Date/Time: 03/07/2020 02:14:11 Procedure Note Interface, External Ris In [...] included. Case Report Surgical Pathology Report Case: [id number] I [facility] Authorizing Provider: Rosa Pinedo i, MD Collected: 03/05/2020 08:32 AM [facility] Ordering Location: [facility] PERIOPERATIVE Received: 03/05/2020 10:12 AM [facility] Pathologist: Inocencio Carballo MD Specimen: Gallbladder DIAGNOSIS A. GALLBLADDER, CHOLECYSTECTOMY: MUSA PLASENCIA Electronically - CHRONIC CHOLECYSTITIS [facility] si gned by Yi Carballoing Pathologist Direct Phone Line: [facility] MD Inocencio on 03/08/2020 at 3 :29 PM CPT Code(s) 36409 IGOR [facility] CLINICAL HISTORY Preop diagnosis: MUSA KATZ Other chronic [facility] pancreatitis [facility] SPECIMEN SOURCE [facility] Received in formalin ST TSE labeled with the [facility] patient's name, [facility] CENTER accession number and "gallbladder" is an 11.0 x 2.0 x 1.0 cm intact gallbladder with a 0.2 cm in length x 0.3 cm in diameter attached cystic duct. The serosa is yellow-pink, smooth and hyperemic. The specimen is opened to reveal approximately 3 ml of yellow bile. Calculi are not identified. The mucosa is prakash-pink and trabeculated. The wall measures 0.2 cm thick. Sign Designer sections are submitted in A1-A2, with the inked cystic duct margin in A1. PA/pl MICROSCOPIC Performed. MUSA KATZ [facility] Gross assessment [facility] Az[facility] KATZ was performed at [facility] Department of [place] [facility], [address] [place] [id number], Professional [facility] KATZ component was [facility] performed at Department [facility], [address] [place] [id number], Specimen Tissue - Gallbladder structure (body str ucture) Performing Organization Address City/State/Zipcode Phone Number MUSA KATZ [facility] [address] [place] [address] [phone] CENTER TRANSFUSION SERVICE REPORT - SCAN (03/04/2020 6:00 PM CDT)Only the most recent of4 resultswithin the time period is included. Narrative Performed At This result has an attachment that is no t available. Type and screen, automated (03/03/2020 2:49 PM CDT)Only the most recent of4 resultswithin the time period is included. Pathologist Sig nature ABO/RH AUTOMATED B POSITIVE [facility] Ab Scrn NEGATIVE [facility] Specimen Blood Performing Organization Address City/[facility] Phone Number [address] [address] Hemoglobin and hematocrit (03/02/2020 2:33 PM CDT)Only the most recent of2 resultswithin the time period is included. Pathologist Sig nature Hemoglobin 10.8 (L) 13.7 - 17.5 GM/DL [facility] Hematocrit 32.9 (L) 40.1 - 51.0 % [facility] Specimen Blood Narrative Performed At Canvas Worker Apprentice ID - [id number] [facility] Performing Organization Address [facility] Phone Number [address] [address] CENTER Prothrombin time/INR (03/01/2020 5:00 AM CDT)Only the most recent of31 results within the time period is included. Pathologist Sig nature Protime 19.2 (H) 11.9 - 14.2 seconds [facility] INR 1.66 <=5.90 [facility] Specimen Blood Narrative Performed At Effective 12/11/2018: PT Reference Range [facility] Change New: 11.9-14.2 Previous: 11.7-14.7 RECOMMENDED COUMADIN/WARFARIN INR THERAPY RANGES STANDARD DOSE: 2.0-3.0 Includes: PROPHYLAXIS for venous thrombosis, systemic embolization; TREATMENT for venous thrombosis and/or pulmonary embolus. HIGH RISK: Target INR is 2.5-3.5 for patients wiht mechanical heart valves. Performing Organization Address [facility]/Zipcode Phone Number [address] [address] [place] Urinalysis w/Microscopic (02/28/2020 5:33 PM CDT) Color, UA Light Yellow [facility] Clarity, UA Clear [facility] Specific [place], 1.011 1.001 - 1.035 [facility] pH, UA 6.5 5.0 - 8.0 [facility] Protein, UA Negative Negative [facility] Glucose, UA Negative Negative [facility] Ketones, UA Negative Negative [facility] Bilirubin, UA Negative Negative [facility] Blood, UA Negative Negative [facility] Nitrite, UA Negative Negative [facility] Leukocytes, UA Negative Negative [facility] Urobilinogen, UA 0.2 0.2 - 1.0 mg/dL [facility] RBC, UA 0 /HPF [facility] WBC, UA <1 /HPF [facility] Mucus Many [facility] Squam Epithel, UA <1 /HPF [facility] Hyaline Casts, UA 3 /LPF [facility] Specimen Source [facility] Specimen Urine Narrative Performed At Canvas Worker Apprentice ID - [auto] [facility] Canvas Worker Apprentice ID - tech Performing Organization Address City/State/Zipcode Phone Number [facility] [address] [place] [address] [place] ECG 12 lead (02/28/2020 3:06 PM CDT)Only the most recent of12 resultswithin the time period is included. Specimen Narrative Performed At Ventricular Rate 82 BPM GE MUSE Atrial Rate 82 BPM P-R Interval 140 ms QRS Duration 94 ms Q-T Interval 372 ms QTC Calculation(Bazett) 434 ms P [place] 44 degrees R [place] 51 degrees T [place] 54 degrees Normal sinus rhythm Cannot rule [...] 372 ms QTC Calculation(Bazett) 434 ms P [place] 44 degrees R [place] 51 degrees T [place] 54 degrees Normal sinus rhythm Cannot rule out Anterior infarct , age u ndetermined Abnormal ECG 21 FEB 2020 Old anterior infarct now suspected Confirmed by MD TONIA, BEL ([id number]) on 02/28/2020 6:29:15 PM Performing Organization Address City/State/Zipcode Phone Number GE MUSE CORTISOL,60 MIN (02/21/2020 9:26 PM CDT)Only the most recent of3 resultswithin the time period is included. Pathologist Sig nature Cortisol, Baseline 8.8 mcg/dL [facility] Cortisol 30 minute 18.8 mcg/dL [facility] Cortisol, 60 Minute 22.6 ug/dL [facility] Specimen Blood Narrative Performed At ACTH STIMULATION TEST INTERPRETATION [facility] GUIDELINES (Synonyms: Cortrosyn Test, Cosyntropin or Corticotropin [...] Policy and Procedure Section on The Source. Canvas Worker Apprentice ID - ROSIANG Performing Organization Address City/State/Zipcode Phone Number [address] [address] CENTER CORTISOL,30 MIN (02/21/2020 8:58 PM CDT)Only the most recent of2 resultswithin the time period is included. Pathologist Sig nature Cortisol, Baseline 8.8 mcg/dL [facility] Cortisol, 30 Minute 18.8 ug/dL [facility] Specimen Blood Narrative Performed At ACTH STIMULATION TEST INTERPRETATION [facility] GUIDELINES (Synonyms: Cortrosyn Test, Cosyntropin or Corticotropin [...] Policy and Procedure Section on The Source. Canvas Worker Apprentice ID - ROSIANG Performing Organization Address City/State/Zipcode Phone Number [facility] MEDICAL [address] [place] [address] CENTER CORTISOL,BASELINE (02/21/2020 8:12 PM CDT)Only the most recent of2 results within the time period is included. Pathologist Sig nature Cortisol, Baseline 8.8 ug/dL [facility] Specimen Blood Narrative Performed At ACTH STIMULATION TEST INTERPRETATION [facility] GUIDELINES (Synonyms: Cortrosyn Test, Cosyntropin or Corticotropin [...] Policy and Procedure Section on The Source. Canvas Worker Apprentice ID - ROSIANG Performing Organization Address City/State/Zipcode Phone Number [facility] MED[facility] [address] [place] [address] CENTER Troponin I (02/21/2020 4:51 AM CDT)Only the most recent of10 resultswithin the time period is included. Pathologist Sig nature Troponin I <0.01 0.00 - 0.03 ng/mL [facility] Specimen Blood Narrative Performed At Troponin I (TnI) levels must be interpreted [facility] in the context of the presenting symptoms and the clinical findings. Elevated TnI levels indicate myocardial damage, but are not specific for ischemic heart disease. Elevated TnI levels are seen in patients with other cardiac conditions (including myocarditis and congestive heart failure), and slight TnI elevations occur in patients with other conditions, including sepsis, renal failure, acidosis, acute neurological disease, and persistent tachyarrhythmia. Canvas Worker Apprentice ID - ANA M Performing Organization Address City/[facility]/[place] [address] [place] POC-Glucose meter (02/20/2020 11:24 PM CDT)Only the most recent of9 results within the time period is included. POC-Glucose Meter 166 (H)Comment: 70 - 110 mg/dL [facility] : TESTED AT [address], [address]: Canvas Worker Apprentice/Technic renee ID = [id number] for Geri Begum (contract) Specimen Blood Performing Organization Address [facility] [place] [address] [place] REPORT OF PROCEDURE - ENDOSCOPY URL (02/20/2020 1:44 PM CDT) Narrative Performed At This result has an attachment that is no t available. IGG SUBCLASS-4 ONLY (02/17/2020 3:36 AM CDT) Pathologist Sig nature Igg 4 41.0 4 - 86 mg/dL [facility] D Specimen Blood Narrative Performed At Performing Lab [facility] E[facility] [place] [address] [place] [address] Katrin Skelton MD, PhD, DAJUAN Performing Organization Address City/State/Zipcode Phone Number [place] [address] INCORPORATED [address] [facility] C-Reactive Protein (02/17/2020 3:36 AM CDT) Pathologist Sig nature CRP 3.31 (H) 0.00 - 0.50 mg/dL [facility] Specimen Blood Narrative Performed At Canvas Worker Apprentice ID - JEFFRY Aguilera [facility] Performing Organization Address City/[facility] Phone Number [address] [address] CENTER Anti-Nuclear Antibody (ESMER) (02/17/2020 3:36 AM CDT) Pathologist Sig [facility] ESMER Negative Negative [facility] Specimen Blood Narrative Performed At Test performed by IFA method. [facility] Test performed by IFA method. Performing Organization Address City/[facility] Phone Number [address] [address] CENTER Immunoglobulin G (IgG) (02/17/2020 3:36 AM CDT) Pathologist Sig [facility] IgG 889 540-1,822 mg/dL [facility] Specimen Blood Narrative Performed At Canvas Worker Apprentice ID - JEFFRY Aguilera [facility] Performing Organization Address City/[facility] Phone Number [address] [address] CENTER phosphatidylethanol (02/16/2020 5:23 PM CDT) Pathologist Sig nature Scan Result [facility] Specimen Blood - Structure of left hand (body str ucture) Narrative Performed At This result has an attachment that is no t available. Performing Organization Address City/State/[facility] Phone Number [facility] [address] [facility], [place] Rapid drug screen, urine (02/16/2020 1:29 AM CDT)Only the most recent of3 resultswithin the time period is included. Barbiturate Screen Negative Negative [facility] Benzodiazepine Screen Negative Negative [facility] Cocaine (Metab.) Screen Negative Negative [facility] Methadone Screen Negative Negative [facility] Opiate Screen Positive (A) Negative [facility] Cannabinoid Screen Negative Negative [facility] Amph/Methamph Screen Negative Negative [facility] Phencyclidine Screen Negative Negative [facility] pH, UA 6.5 5.0 - 8.0 [facility] Specimen Urine Narrative Performed At [facility] Cocaine 300 ng/mL Cannabinoid 50 ng/mL Benzodiazepine 200 ng/mL Barbiturate 200 ng/mL Phencyclidine 25 ng/mL Opiate 300 ng/mL Methadone 300 ng/mL Amphetamine/ 1000 ng/mL Methamphetamine This assay provides an unconfirmed qualitative test result for the clinical management of patients in emergency situations. Chain of custody not maintained. Some muux-yom-qyrjfdn medications, as well as adulterants, may cause inaccurate results. Clinical correlation should be applied. A more comprehensive drug screen or confirmation of a detected drug may be performed upon request. Canvas Worker Apprentice ID - PIAYA L Canvas Worker Apprentice ID - [auto] Performing Organization Address City/State/Zipcode Phone Number [facility] [address] [place] [address] CENTER PT/aPTT (02/15/2020 8:02 PM CDT)Only the most recent of4 resultswithin the time period is included. Pathologist Sig nature Protime 14.8 (H) 11.9 - 14.2 seconds [facility] INR 1.2 <=5.9 [facility] PTT 27.3 22.5 - 36.0 seconds [facility] Specimen Blood Narrative Performed At Effective 12/11/2018: PT Reference Range [facility] Change New: 11.9-14.2 Previous: 11.7-14.7 RECOMMENDED COUMADIN/WARFARIN INR THERAPY RANGES STANDARD DOSE: 2.0-3.0 Includes: PROPHYLAXIS for venous thrombosis, systemic embolization; TREATMENT for venous thrombosis and/or pulmonary embolus. HIGH RISK: Target INR is 2.5-3.5 for patients wiht mechanical heart valves. Performing Organization Address City/State/Zipcode Phone Number [facility] [address] [place] [address] CENTER ECG/EKG Interpretation (02/15/2020 4:36 PM CDT) Narrative Performed At Sheldon Gonzales MD 02/15/2020 5: 28 PM ECG/EKG Interpretation Date/Time: 02/15/2020 4:38 PM Performed by: Sheldon Gonzales MD Authorized by: Sheldon Gonzales MD The ECG was interpreted by ED physician. The ECG is in terpreted as sinus rhythm. Rate is tachycardic. Heart rate is [address] segments normal. T waves normal. CT abd/pelvis - pancreas evaluation (01/25/2020 12:40 AM CDT) Specimen Narrative Performed At FINAL REPORT [employer] ABDOMINAL AND PELVIS CT DATED 01/25/2020 CLINICAL [...] Carrington Garcia MD Report Verified Date/Time: 01/25/2020 09:59:37 [place] Location: [facility] C013X Ortho Con sult [facility] Procedure Note Interface, External Ris [...] Verified Date/Time: 01/25/2020 0 9:59:37 [place] Location: [facility] C013X Ortho Con sult [facility] Performing Organization Address City/State/Zipcode Phone Number RIS CBC (Hemogram only) (01/23/2020 7:53 PM CDT)Only the most recent of11 results within the time period is included. Pathologist Sig nature WBC 10.9 (H) 3.5 - 10.5 K/L [facility] RBC 5.50 4.63 - 6.08 M/L [facility] Hemoglobin 16.0 13.7 - 17.5 GM/DL [facility] Hematocrit 47.0 40.1 - 51.0 % [facility] MCV 85.5 79.0 - 92.2 fL [facility] MCH 29.1 25.7 - 32.2 pg [facility] MCHC 34.0 32.3 - 36.5 GM/DL [facility] RDW 13.4 11.6 - 14.4 % [facility] Platelets 204 150 - 450 K/CU MM [facility] MPV 9.3 (L) 9.4 - 12.4 fL [facility] nRBC 0 0 - 0 /100 WBC [facility] Specimen Blood Performing Organization Address City/[facility] Phone Number [address] [address] CENTER Ethanol (01/23/2020 7:53 PM CDT)Only the most recent of2 resultswithin the time period is included. Pathologist Sig nature Ethanol Lvl <10 <=10 mg/dL [facility] Specimen Blood Narrative Performed At Canvas Worker Apprentice ID - BS [facility] Performing Organization Address City/[facility]/Zipcode Phone Number [address] [address] CENTER Lactic acid, venous (01/23/2020 5:06 AM CDT)Only the most recent of12 results within the time period is included. Pathologist Sig nature Lactate, Venous 3.60 (H) 0.50 - 2.20 [facility] mmol/L [facility] Specimen Blood Narrative Performed At Canvas Worker Apprentice ID - LA [facility] Performing Organization Address [facility] Phone Number [facility] [address] [place] [address] CENTER Urinalysis with Microscopic If Indicated (12/18/2019 10:28 AM CDT)Only the most recent of3 resultswithin the time period is included. Color, UA Yellow [facility] Clarity, UA Clear [facility] Specific [place], 1.021 1.001 - 1.035 [facility] pH, UA 6.0 5.0 - 8.0 [facility] Protein, UA Negative Negative [facility] Glucose, UA Negative Negative [facility] Ketones, UA 60 mg/dL (A) Negative [facility] Bilirubin, UA Negative Negative [facility] Blood, UA Negative Negative [facility] Nitrite, UA Negative Negative [facility] Leukocytes, UA Negative Negative [facility] Urobilinogen, UA 0.2 0.2 - 1.0 mg/dL [facility] Specimen Source [facility] Specimen Urine Narrative Performed At Canvas Worker Apprentice ID - [auto] [facility] Performing Organization Address [facility]/Zipcode Phone Number [facility] [address] [place] [address] CENTER Drug screen, urine, comprehensive (12/18/2019 10:28 AM CDT) Specimen Urine Narrative Performed At This result has an attachment that is no t available. Blood gas, arterial (12/18/2019 6:43 AM CDT) Pathologist Sig nature pH, Arterial 7.46 (H) 7.35 - 7.45 [facility] pCO2, Arterial 33 (L) 35 - 45 mmHg [facility] pO2, Arterial 230 (H) 80 - 90 mmHg [facility] O2 Sat, Arterial 99.6 (H) 96.0 - 97.0 % [facility] HCO3, Arterial 23 21 - 29 mmol/L [facility] Base Excess, Arterial -0.5 -2.0 - 3.0 [facility] mmol/L [facility] Patient Temperature 37.0 C [facility] FIO2 21.0 % [facility] Specimen Blood, Arterial Performing Organization Address City/[facility] Phone Number [address] [address] [place] Blood Culture - Routine (Left Venipuncture) (12/17/2019 10:07 PM CDT)Only the most recent of2 resultswithin the time period is included. Pathologist Sig nature Result No growth in 5 days [facility] Specimen Blood - Entire left upper arm (body stru cture) Performing Organization Address [facility] Phone Number [address] [address] [place] Occult blood x 1, stool (12/17/2019 8:10 PM CDT) Pathologist Sig nature Occult blood Positive (A) Negative [facility] Specimen Stool - Rectum structure (body structure ) Performing Organization Address [facility] Phone Number [address] [address] [place] US renal complete (11/25/2019 1:15 PM CDT) Specimen Narrative Performed At FINAL REPORT [employer] Technique: Grayscale and color doppler r enal [...] Nancy Concepcion MD Report Verified Date/Time: 11/25/2019 14:35:00 [place] Location: [address] [facility] Procedure Note Interface, [...] Verified Date/Time: 11/25/2019 1 4:35:00 [place] Location: [address] Rad[address] [facility] Performing Organization Address City/State/Zipcode Phone Number [place] Cortisol (11/25/2019 11:09 AM CDT)Only the most recent of5 resultswithin the time period is included. Pathologist Sig nature Cortisol, Total 14.8 3.7 - 19.4 ug/dL [facility] Specimen Blood Narrative Performed At Canvas Worker Apprentice ID - BS [facility] MED [facility] Performing Organization Address City/State/Zipcode Phone Number [address] [address] CENTER Aldosterone (11/25/2019 11:09 AM CDT)Only the most recent of3 resultswithin the time period is included. Aldosterone <1 ng/dL [facility] Comment: INCORPORATED Adult Reference Ranges for Aldosterone: Upright 8:00-10:00 am < or = 28 ng/dL Upright 4:00-6:00 pm < or = 21 ng/dL Supine 8:00-10:00 am 3-16 ng/dL This test was developed and its analytical performance characteristics have been determined by [facility]. It has not been cleared or approved by FDA. This assay has been validated pursuant to the CLIA regulations and is used for clini melvi purposes. Specimen Blood Narrative Performed At Performing Lab [facility] [address] [address] [place] [address] Katrin Skelton MD, PhD, DAJUAN Performing Organization Address City/State/Zipcode Phone Number [facility] [place] [address] [place] [address] REPORT OF PROCEDURE - ENDOSCOPY URL (11/21/2019 3:07 PM CDT) Narrative Performed At This result has an attachment that is no t available. Jtba-0-Rdxztptrydrm I IgA (11/19/2019 4:29 AM CDT) Beta-2 <9 < OR = 20 [facility] Glycoprotein I Ab, Comment: BE INCORPORATED IgA The antiphospholipid antibody syndrome (APS) is a [...] Specimen Blood Narrative Performed At Performing Lab [address] [place] [address] [place] [address] Katrin Skelton MD, PhD, DAJUAN Performing Organization Address [facility] Phone Number [place] [address] INCORPORATED [address] [address] [facility] Jdlt-3-Cfwvocsjxxvn I IgM (11/19/2019 4:29 AM CDT) Pathologist Sig nature Beta-2 Glycoprotein I <9 < OR = 20 [facility] Ab, IgM INCORPORATED Specimen Blood Narrative Performed At Performing Lab [facility] E[facility] [place] [address] [place] [address] Katrin Skelton MD, PhD, DAJUAN Performing Organization Address [facility] Number [place] [address] INCORPORATED [address] [facility] Rwpx-3-Uwknykopcoes I IgG (11/19/2019 4:29 AM CDT) Pathologist Sig nature Beta-2 Glycoprotein I <9 < OR = 20 [facility] Ab, IgG INC[facility]PORATED Specimen Blood Narrative Performed At Performing Lab [facility] [place] [address] [place] [address] Katrin Skelton MD, PhD, DAJUAN Performing Organization Address [facility] Number [place] [address] INCORPORATED [address] [facility] JAK2 MUTATION (V617F) QUANTITATIVE (11/19/2019 4:29 AM CDT) CLINICAL INDICATION NOT GIVEN [facility] SPECIMEN SOURCE: NOT GIVEN [facility] Block/Specimen ID NOT GIVEN [facility] JAK2 V617F Mutation NOT DETECTED NOT DETECTED [facility] GENE DNR [facility] AMINO ACID DNR [facility] MUTATIONS/POLYMORPH DNR [facility] ISMS [facility]PORATED Mutation Analysis DNR [facility] Exons 10,11,13-16 DNR [facility] NUCLEOTIDE CHANGE DNR [facility] References: DNR [facility] INTERPRETATION SEE BELOW [facility] Comment: INC[facility]PORATED A JAK2 V617F mutation is not detected. This data was reviewed and interpreted by Ortiz Malave, PhD. HCLD(ABB) ASSAY DETAILS SEE BELOW [facility] Comment: INCORPORATED This PCR-based advanced sequencing assay interro lew DNA from leukocytes for the presence of mutations in codon 617 of JAK2. The se nsitivity of mutation detection is 5%. Alterations outside of the tested are as of this gene will not be detected. Synonymous or known non-synonymous po lymorphic changes (SNPs) are not reported. JAK2 V617F mutation is associ ated with myeloproliferative neoplasms (MPNs), including polycyt hemia vera (PV), essential thrombocythemia (ET) and primary myelofibros is (PMF), and a small subset of other myeloid neoplasms. Increasing allele b urden of JAK2 V617F in MPNs has been shown in a number of studies to be assoc iated with increased symptoms including pruritis, splenomegaly, and leukocy tosis. Results of this assay should be correlated with morphology and other l aboratory testing for final diagnosis and classification. If this test is ne gative, additional testing that may be useful for workup of MPNs, dependi ng on presenting hematologic features, includes BCR-ABL1 rearrangement (test code 29904 or 05545H) or mutational analysis of CALR (ET/PMF, 03036) , JAK2 exon 12 (PV, 38574), MPL (ET/PMF, 05879) or CSF3R (chronic neutroph ilic leukemia, 30462). Residual material from this sample may be used except for BCR-ABL1 testing; call lab to add. DNA was aligned to GRCh37(hg19) for analysis and trans cript ID [id number] was used as reference for JAK2 sequenc e. For additional information, please refer to http://education.[employer]/faq/LWH977 (This link is being provided for informational/educati onal purposes only.) This test was developed and its analytical performance characteristics have been determined by [facility]. It has not been cleared or approved by FDA. This assay has been validated pursuant to the CLIA regulations and is used for clini melvi purposes. Specimen Blood Narrative Performed At Performing Lab [facility] [employer] [facility] [address] [place] [address] Katrin Skelton MD, PhD, DAJUAN Performing Organization Address City/State/Zipcode Phone Number [facility] [address] INCORPORATED [address] [facility] Prothrombin Gene Mutation (11/19/2019 4:29 AM CDT) PROTHROMBIN GENE SEE BELOWComment: [facility] ANALYSIS RESULT: [id number] INCORPORATED variant not detected Interpretation SEE BELOW [facility] Comment: INCORPORATED INTERPRETATION: This individual is negative (normal) f or the [id number] variant in the Prothrombin/Factor II gene. Increased risk of t hrombophilia can be caused by a variety of genetic and non-genetic factors not screened for by this assay. Laboratory testing supervised and results monitored by Elizabet Cai, Ph.D., [facility], [facility]. The [id number] mutation [[id number]: g.14972W>A (c.*97G>A )] in the Prothrombin/Factor II gene is the second most common i nherited risk factor for thrombosis occurring in approximately 2% of Caucas ians. Presence of the mutation is associated with an elevation of prothrombi n levels to about 30% above normal in heterozygotes and to 70% above normal in homozygotes. Prothrombin ([id number]) mutations are detected by amplif ication of their selected gene regions by polymerase chain reaction (PC R) and fluorescent probe hybridization to the targeted region, followed b y melting curve analysis with a real time PCR system. Although rare, f alse positive or false negative results may occur. All results should be inte rpreted in context of clinical findings, relevant history, and other laborat ory data. Health care providers, please contact your local [facility] genetic counselor or call [phone] ([phone]) for as sistance with interpretation of these results. This test was developed and its analytical performance characteristics have been determined by [facility]. It has not been cleared or approved by FDA. This assay has been validated pursuant to the CLIA regulations and is used for clini melvi purposes. Specimen Blood Narrative Performed At Performing Lab [facility] [address] [place] [address] Katrin Skelton MD, PhD, DAJUAN Performing Organization Address City/State/[place]code [place] [address] Beta-2 glycoprotein antibodies (11/19/2019 4:29 AM CDT) B2 Glcoprotein Ab Refer to [facility] Profile individual INCORPORATED B2-Glycoprotein IgG, IgM and IgA results. Specimen Blood Performing Organization Address City/State/Zipcode Phone Number [place] [address] INCORPORATED [address] [facility] Cardiolipin Antibodies, IgG and IgM (11/19/2019 4:29 AM CDT) Pathologist Sig nature Anticardiolipin IgG <1.6 <20.0 GPL [facility] Anticardiolipin IgM 4.1 <20.0 MPL [facility] Specimen Blood Narrative Performed At Anticardiolipin IgG Result Interpretatio n: [facility] <20.0 GPL Normal >/= 20.0 GPL Positive Anticardiolipin IgM Result Interpretatio n: <20.0 MPL Normal >/= 20.0 MPL Positive Performing Organization Address City/State/Zipcode Phone Number [facility] [address] [place] [address] CENTER Factor 5 Leiden PCR (thrombotic risk) (11/19/2019 4:29 AM CDT) Pathologist [facility] Factor V Leiden SEE BELOWComment: [facility] Mutation RESULT: FACTOR V INCORPORATED LEIDEN ([id number]) VARIANT NOT DETECTED Interpretation SEE BELOW [facility] Comment: INCORPORATED INTERPRETATION: This individual is negative (normal) f or the Factor V Leiden (R506Q) variant in the Factor V gene. Increased risk o f thrombophilia can be caused by a variety of genetic and non-genetic factors not screened for by this assay. Laboratory testing supervised and results monitored by Katya Ma MD, PhD, [facility], [facility]. MUTATION ANALYSIS: The Factor V Leiden (R506Q) mutation [NM 730866.2: c.1 601G>A (p.R534Q)] in the Factor V gene is one of the most common causes of inherited thrombophilia. This mutation causes resistance to degr adation of activated Factor V protein by activated protein C (APC). The Fac tor V Leiden (R506Q) mutation is detected by amplification of the eleno ected region of Factor V gene by polymerase chain reaction (PCR) and fluoresce nt probe hybridization to the targeted region, followed by melting curve analysis wi a real time PCR system. Although rare, false positive or false negativ e results may occur. All results should be interpreted in context of clinic al findings, relevant history, and other laboratory data. This test was developed and its analytical performance characteristics have been determined by [facility]. It has not been cleared or approved by FDA. This assay has been validated pursuant to the CLIA regulations and is used for clini melvi purposes. Health care providers, please contact your local [facility] genetic counselor or call [phone] ([phone]) for as sistance with interpretation of these results. Specimen Blood Narrative Performed At Performing Lab [facility] [address] [place] [address] Katrin Skelton MD, PhD, DAJUAN Performing Organization Address City/[facility] Phone [place] [address] INCORPORATED [address] [facility] Procalcitonin (11/17/2019 9:36 PM CDT)Only the most recent of2 resultswithin the time period is included. Pathologist Sig nature Procalcitonin <0.05 <0.05 ng/mL [facility] Specimen Blood Narrative Performed At SEPSIS RISK (ng/mL) [facility] Low: 0.05-0.50 Intermediate: 0.51-2.00 High: >=2.01 Performing Organization Address City/[facility] Phone Number [facility] [address] [place] [address] CENTER MR abdomen without & with IV contrast (11/17/2019 9:08 AM CDT)Only the most recent of2 resultswithin the time period is included. Specimen Narrative Performed At FINAL REPORT [place] MRI of the abdomen dated November 17, [...] Carrington Garcia MD Report Verified Date/Time: 11/17/2019 10:43:53 [place] Location: [facility] C013Y CT Body R [facility] Room Procedure Note Interface, External Ris In [...] Verified Date/Time: 11/17/2019 1 0:43:53 [place] Location: [facility] B1 C013Y CT Body R eading Room Performing Organization Address City/[facility] Phone Number [facility] Renin, plasma (11/08/2019 8:22 AM CDT)Only the most recent of2 resultswithin the time period is included. PRA,LC/MS/MS 0.35 0.25 - 5.82 [facility] Comment: ng/mL/h INCORPORATED This test was developed and its analytical performance characteristics have been determined by [facility]. It has not been cleared or approved by FDA. This assay has been validated pursuant to the CLIA regulations and is used for clini melvi purposes. Specimen Blood Narrative Performed At Performing Lab [facility] [address] [place] [address] Katrin Skelton MD, PhD, DAJUAN Performing Organization Address City/[facility] Phone Number [place] [address] INCORPORATED [address] [facility] REPORT OF PROCEDURE - ENDOSCOPY URL (11/07/2019 12:17 PM CDT) Narrative Performed At This result has an attachment that is no t available. Urea Nitrogen, random urine (11/06/2019 11:29 AM CDT)Only the most recent of3 resultswithin the time period is included. Pathologist Sig nature Urea Nitrogen, Ur 179 mg/dL [facility] Specimen Urine Narrative Performed At Reference Range: No Normals [facility] Canvas Worker Apprentice ID - ANA M Performing Organization Address City/State/Zipcode Phone Number [address] [address] [place] Sodium, random urine (11/06/2019 11:29 AM CDT)Only the most recent of3 results within the time period is included. Pathologist Sig nature Sodium Urine 91 meq/L [facility] Specimen Urine Narrative Performed At Reference Range: No Normals [facility] Canvas Worker Apprentice ID - ANA M Performing Organization Address City/[facility]/Zipcode Phone Number [address] [address] [place] Potassium, random urine (11/06/2019 11:29 AM CDT)Only the most recent of3 resultswithin the time period is included. Pathologist Sig nature Potassium Urine 19.1 meq/L [facility] Specimen Urine Narrative Performed At Reference Range: No Normals [facility] Canvas Worker Apprentice ID - ANA M Performing Organization Address [facility]/Zipcode Phone Number [address] [address] [place] Creatinine, random urine (11/06/2019 11:29 AM CDT)Only the most recent of3 resultswithin the time period is included. Pathologist Sig nature Creatinine, Ur 19.6 mg/dL [facility] [place] Specimen Urine Narrative Performed At Reference Range: No Normals [facility] Canvas Worker Apprentice ID - ANA M Performing Organization Address [facility]/Zipcode Phone Number [address] [address] CENTER Chloride, random urine (11/06/2019 11:29 AM CDT)Only the most recent of3 results within the time period is included. Pathologist Sig nature ChlorideUr 104 meq/L [facility] Specimen Urine Narrative Performed At Reference Range: No Normals [facility] Canvas Worker Apprentice ID - ANA Puri Performing Organization Address City/[facility]/Zipcode Phone Number [address] [address] CENTER Lactate dehydrogenase (LDH) (11/06/2019 4:35 AM CDT) Pathologist Sig nature LDH 171 125 - 220 U/L [facility] ME DICAL [place] Specimen Blood Narrative Performed At Canvas Worker Apprentice ID - IDALIA Dodd [facility] Performing Organization Address City/[facility] Phone Number [address] [address] [place] Haptoglobin (11/06/2019 4:35 AM CDT) Pathologist Sig nature Haptoglobin 42 14 - 258 mg/dL [facility] Specimen Blood Narrative Performed At Canvas Worker Apprentice ID - ANA Puri [facility] Performing Organization Address [facility] Phone Number [address] [address] [place] Potassium-Stat Lab (11/05/2019 12:29 PM CDT)Only the most recent of3 results within the time period is included. Pathologist Sig nature Potassium 5.5 3.6 - 5.5 meq/L [facility] Specimen Blood, Arterial Performing Organization Address [facility] Phone Number [address] [address] [place] Pancreatic elastase, fecal (11/05/2019 2:11 AM CDT) Pancreatic 140 (L) mcg/g [facility] Elastase Comment: INCORPORATED Adult and Pediatric Reference Ranges for Pancreatic Elastase-1: Normal: >200 mcg/g Moderate Pancreatic Insufficiency: 100-200 mcg/g Severe Pancreatic Insufficiency: <100 mcg/g Elastase-1 (E-1) assay results are expressed in mcg/g, which represent mcg E1/g feces. It is not necessary to interrupt enzyme substitution therapy. Specimen Stool - Rectum structure (body structure ) Narrative Performed At Performing Lab [facility] [employer] [facility] [address] [place] [address] Katrin Skelton MD, PhD, DAJUAN Performing Organization Address City/[facility] Phone Number [place] [address] INCORPORATED [address] [facility] ACTH (11/04/2019 10:35 AM CDT)Only the most recent of2 resultswithin the time period is included. Pathologist Sig nature ACTH 16 6 - 50 pg/mL [facility] Comment: INCORPORATED Reference range applies only to the specimens collecte d between 7am-10am. Specimen Blood - Entire right upper arm (body str ucture) Narrative Performed At Performing Lab [facility] [address] [place] [address] Katrin Skelton MD, PhD, DAJUAN Performing Organization Address [facility] Phone Number [place] [address] INCORPORATED [address] [facility] Osmolality, urine (11/03/2019 5:16 PM CDT) Pathologist Sig nature Osmolality, Ur 427 50-1,200 mOsm/kg [facility] mOsm/kg [facility] Specimen Urine Performing Organization Address [facility] Phone Number [address] [address] CENTER Osmolality, serum (11/03/2019 4:25 PM CDT) Pathologist Sig nature Osmolality Serum 286 275 - 295 mOsm/kg [facility] Specimen Blood Performing Organization Address City/[facility] Phone Number [place] [id number] [place] [address] CENTER Creatine Kinase (CK) (11/03/2019 7:34 AM CDT) Pathologist Sig nature Total CK 49 29 - 200 U/L [facility] Specimen Blood Narrative Performed At Canvas Worker Apprentice ID - RADHA Foy [facility] Performing Organization Address City/[facility]/Zipcode Phone Number [address] [address] CENTER Calcium, Ionized (11/03/2019 4:54 AM CDT)Only the most recent of4 resultswithin the time period is included. Pathologist Sig nature Calcium, Ion 1.24 1.12 - 1.27 mmol/L [facility] pH, Blood 7.28 [facility] Specimen Blood Performing Organization Address City/[facility]/Zipcode Phone Number [address] [address] [place] Vitamin B12 and Folate (10/31/2019 4:20 AM CDT) Pathologist Sig nature Vitamin B12 518 213 - 816 pg/mL [facility] Folate 30.00 >=7.00 ng/mL [facility] Specimen Blood Narrative Performed At Canvas Worker Apprentice AQUILES Aguilera [facility] Performing Organization Address City/[facility]/Zipcode Phone Number [address] [address] [place] Hemoglobin A1c (10/31/2019 4:20 AM CDT) Pathologist Sig [facility] Hemoglobin A1C 5.1 4.3 - 6.1 % [facility] Specimen Blood Performing Organization Address City/[facility]/Zipcode Phone Number [address] [address] [place] Lipid panel (10/31/2019 4:20 AM CDT) Pathologist Sig nature Triglycerides 96 mg/dL [facility] DICAL [place] Cholesterol 158 mg/dL [facility] HDL 67 mg/dL [facility] LDL Calculated 72 mg/dL [facility] M EDICAL [place] Specimen Blood Narrative Performed At Triglyceride Reference Range: [facility] Low Risk <150 Borderline 150-199 High Risk 200-499 Very High Risk >=500 Cholesterol Reference Range: Low Risk <200 Borderline 200-239 High Risk >240 HDL Cholesterol Reference Range: Low Risk >=60 High Risk <40 LDL Cholesterol Reference Range: Optimal <100 Near Optimal 100-129 Borderline 130-159 High 160-189 Very High >=190 Canvas Worker Apprentice ID - JEFFRY Aguilera Performing Organization Address City/State/Zipcode Phone Number [facility] [address] [place] [address] [address]/CTA abdomen & pelvis (10/30/2019 11:50 AM CDT) Specimen Narrative Performed At FINAL REPORT [employer] RIS ABDOMINAL AND PELVIS CT DATED 10/30/2019 CLINICAL [...] in size without focal abnormality. Gallbladder is contracted . No gallstone or biliary dilatation is [...] presen t. IMPRESSION: No active GI bleeding iden tified. Signed: Carrington Garcia MD Report Verified Date/Time: 10/30/2019 12:49:58 [place] Location: [facility] C013W [facility] Procedure Note Interface, External Ris In - [...] Verified Date/Time: 10/30/2019 1 2:49:58 [place] Location: [address] Consult R [facility] Room Performing Organization Address City/State/Zipcode Phone Number [facility] Urinalysis w/Microscopic + Reflex to Culture (10/21/2019 2:07 PM CDT) Pathologist Sig nature Color, UA Colorless [facility] Clarity, UA Clear [facility] Specific [place], 1.008 1.001 - 1.035 [facility] pH, UA 6.0 5.0 - 8.0 [facility] Protein, UA Negative Negative [facility] Glucose, UA Negative Negative [facility] Ketones, UA Negative Negative [facility] Bilirubin, UA Negative Negative [facility] Blood, UA Negative Negative [facility] Nitrite, UA Negative Negative [facility] Leukocytes, UA Negative Negative [facility] Urobilinogen, UA 0.2 0.2 - 1.0 mg/dL [facility] RBC, UA 0 /HPF [facility] WBC, UA 1 /HPF [facility] Squam Epithel, UA <1 /HPF [facility] Specimen Source [facility] Specimen Urine Narrative Performed At Canvas Worker Apprentice ID - [auto] [facility] Canvas Worker Apprentice ID - divya Performing Organization Address City/State/Zipcode Phone Number [facility] [address] [place] [address] CENTER after 06/07/2019 Advance Directives For more information, please contact: [phone] Code Status Date Activated Date Inactivated Comments [...]
--- OUTSIDE RECORDS SUMMARY | 2020-06-07 15:40 | XMS REPORT | Continuity of Care Document ---
:1985 Author Organization [facility] t Address [address] [place] [address] Care Team Providers Name Role Phone Pcp Primary Care Physician Unavailable Lauren HEATH Attending Clinician Chris HEATH Attending Clinician Susie Gillespie MD Attending Clinician Savage HEATH, P. Attending Clinician Chad HEATH Attending Clinician Merchant HEATH Attending Clinician Jann HEATH, F. Attending Clinician Hebert HEATH Attending Clinician LAUREN Attending Clinician Unavailable JANET Attending Clinician Unavailable Janet HEATH Attending Clinician Mini HEATH Attending Clinician Kena HEATH Attending Clinician Brian Schultz MD Attending Clinician Eleni Cabrera Attending Clinician Stevie Rincon Attending Clinician Alexey HEATH Attending Clinician Eliana HEATH Attending Clinician Tesfaye HEATH, Suhail Attending Clinician [phone] ALEXEY Attending Clinician Unavailable Bhumi Calderon MD Attending Clinician Erin Paula MD, Nazanin Attending Clinician [phone] Airam HEATH, Lela Attending Clinician Nubia HEATH, Jen Attending Clinician Valarie Marti MD Attending Clinician Sabino Gamble MD Attending Clinician Jaxson Belle CRNA Attending Clinician LELA ALEGRIA Attending Clinician Unavailable Yuliet HEATH Attending Clinician Casey HEATH Attending Clinician Lydia HEATH Attending Clinician Jordan Nogueira MD Attending Clinician Gilberto Kerns MD Attending Clinician YULIET Attending Clinician Unavailable Elysia HEATH, Duglas Attending Clinician Duglas NAIDU Attending Clinician Unavailable [...] Admitting Clinician Unavailable JONEL Admitting Clinician Unavailable Problems Condition Condition Condition Status Onset Resolution Last Treating Co mments Source Name Details Category Date Date Treatment Clinician Date Acute Acute Disease Active [facility] pancreatit pancreatit 8-15 Eneida kes - is is 00:00: Medical [...] not specified specified Superior Superior Disease [facility] mesenteric mesenteric 6-11 Eneida [...] Medical 00 Center Acute Acute Disease Active 2019-[address] [facility] abdominal abdominal 5-02 [facility] [...] Center Acute on Acute on Disease Active 2019-0 [facility] chronic [facility]16 [facility] [...] nter Acute on Acute on Disease Active 2019- [facility] - pancreatit pancreatit 00:00: Me dical is is 00 Center Acute Acute Disease Active [facility] liver liver 8-02 [facility] - failure failure 00:00: Medical 00 [place] Anemia Anemia Disease Active [facility] 7-31 [facility] - 00:00: Medical 00 [place] Pancreatit Pancreatit Disease Active [facility] is, is, 02-12 [facility] - alcoholic, alcoholic, 00:00: Me dical acute acute 00 Center Acute Acute Disease Active [facility] blood loss blood loss 02-12 Eneida kes - anemia anemia 00:00: Medical 00 [place] Hypokalemi Hypokalemi Disease Active [facility] a a 5- [facility] - 00:00: Medical 00 [place] Hypertensi Hypertensi Disease Active [facility] on on 320 [facility] - 00:00: Medical 00 [place] Alcohol Alcohol Disease Active [facility] withdrawal withdrawal 317 Eneida kes - 00:00: Medical 00 Center Allergies, Adverse Reactions, Alerts This patient has no known allergies or adverse reactions. Family History Family Member Diagnosis Comments Start Date Stop Date Source Natural mother Hypertension [facility] Social History Social Habit Start Date Stop Date Quantity Comments Source History of tobacco Cigarette Smoker [facility] - use Medical Center History [facility] - Alcohol Std Drinks Medica [facility] History [facility] - Alcohol Binge Medical Saw [facility] Sex Assigned At [facility] Cigarettes smoked 2020-03-05 2020-03-[address] [facility] - current (pack per 00:00:00 00:00:00 Medical Center day) - Reported Tobacco use and 2020-03-05 2020-03-05 Former user [facility] L ukes - exposure 00:00:00 00:00:00 [facility] Alcohol intake 2020-03-05 2020-03-05 [facility] - 00:[facility]00 00:00:00 of alcohol [facility] Center (finding) History SDOH 2019-11-14 2019-11-[address] [facility] - Alcohol Frequency 00:00:00 00:00:00 [facility] Alcohol Comment 2018-10-28 2018-10-28 1 pint of vodka [facility] - 00:00:00 00:00:00 every day for 9 Medical C enter months Smoking Status Start Date Stop Date Source Current every day smoker 2020-03-05 00:00:00 [facility] Medical Center Medications Ordered Filled Start Stop Current Ordering Indication Dosage Frequency Signature Comments Components Source Medication Medication Date Date Medication? Clinician (SIG) Name Name cyanogelybala Yes QD Take by [facility] min 03-19 mouth [facility] - (VITAMIN 11:58: daily. Medical B-12) 100 15 Center MCG tablet oxyCODONE-a 2019- No 1{tbl} Take [address] cetaminophe 03-1914 tablet by Eneida cheatham - n 00:00: 23:59 mouth Medical (PERCOCET) 00 :00 every 8 Center 5-325 mg (eight) per tablet hours as needed for Pain for up to 10 days. Max Daily Amount: 3 tablets ondansetron 2019- No 4mg Take [address] [facility] (ZOFRAN-ODT 03-19 tablet (4 Eneida kes - ) 4 MG 00:00: 23:59 mg total) Medic al disintegrat 00 :00 by mouth Cent er ing tablet every 6 (six) hours as needed for up to 7 days. fludrocorti 2019- No .1mg QD Take [address] [facility] sone 02-23 tablet [facility] - (FLORINEF) 00:00: 23:59 (0.1 mg Med ical 0.1 mg 00 :00 total) by Center tablet mouth daily for 90 days. nicotine 2019- No 1{patch QD Place [address] (NICODERM 02-23 } patch onto Shawn es - CQ) 7 mg/24 00:00: 23:59 the skin M edical hr patch 00 :00 daily for Center 90 days. folic acid 2020- No 1mg QD Take [address] [facility] (FOLVITE) 1 02-22-10 tablet (1 [place] kes - MG tablet 00:00: 23:59 mg total) Me dical 00 :00 by mouth Center daily. pregabalin 2019- No 50mg Q.5D Take [address] [facility] (LYRICA) 50 02-22 capsule Luke s - MG capsule 00:00: 23:59 (50 mg Medi elvira 00 :00 total) by Center mouth 2 (two) times daily for 90 days. Max Daily Amount: 100 mg pantoprazol 2019- No 40mg Q.5D Take [address] [facility] e 02-22 tablet (40 [facility] - (PROTONIX) 00:00: 23:59 mg total) M edical 40 MG 00 :00 by mouth 2 Center tablet (two) times daily for 60 days. lidocaine 2019-2019- No 1{patch Q24H Place [address] (LIDODERM) 02-22 } patch onto Eneida kes - 5 % patch 00:00: 23:59 the [...] 1{tbl} Take [address] -acetaminop 02-2210 tablet by Eneida paige (NORCO 00:00: 00:00 mouth Medic al 10-325) 00 :00 every 6 Center 10-325 mg (six) per tablet hours as needed for up to 10 days. Max Daily Amount: 4 tablets hyoscyamine 2019-2019- No 125ug Take [address] (LEVSIN/SL) 01-25 tablet [facility]ukes - 0.125 mg SL 00:00: 23:59 (125 mcg M edical tablet 00 :00 total) by Center mouth every 6 (six) hours for 10 days. oxyCODONE-a 2019- No 1{tbl} Take [address] cetaminophe 01-25 tablet by Eneida Sanchez n 00:00: 23:59 mouth Medical (PERCOCET) 00 [...] for up to 7 days. warfarin 2019- No 2.5mg QD Take 2.[address] [facility] (COUMADIN, 6- 06-12 mg by Lukes - JANTOVEN) 14:13: 00:00 mouth Medica l 2.5 MG 27 :00 daily. Center tablet warfarin 2020-0 Yes 5mg QD Take [address] [facility] (COUMADIN, 6-12 tablets (5 Shawn es - JANTOVEN) 00:00: mg total) Med ical 2.5 MG 00 by mouth Center tablet daily. gabapentin 2019- No 300mg [id number] Take [address] [facility] (NEURONTIN) 12-25 08-10 [id number] capsule [facility]ukes - 300 MG 00:00: 00:00 3D (300 mg Medical capsule 00 :00 total) by Center mouth 3 (three) times daily for 90 days. oxyCODONE-a 2019- No 1{tbl} Take [address] cetaminophe 12-25 tablet by Eneida hurd 00:00: 23:59 mouth Medical (PERCOCET) 00 :00 every 6 Center 10-325 mg (six) per tablet hours as needed for up to 10 days. Max Daily Amount: 4 tablets enoxaparin 2019- No 70mg Inject 0.[address] [facility] [facility] (LOVENOX) 12-25 06-17 mLs (70 mg Shawn es - 80 mg/0.8 00:00: 23:59 total) Medic al mL Syrg 00 :00 subcutaneo Center usly every 12 (twelve) hours for 5 days. enoxaparin 2019- No 70mg Inject 0.[address] [facility] (LOVENOX) 12-22 06-12 mLs (70 mg Shawn es - 80 mg/0.8 00:00: 00:00 total) Medic al mL Syrg 00 :00 subcutaneo Center usly every 12 (twelve) hours for 14 days. pantoprazol No 40mg QD Take [address] e 11-30-18 by mouth [facility]ukes - (PROTONIX) 14:24: 00:00 daily. Medi elvira 40 MG 31 :00 Center tablet propranoloL 2019- No 20mg Q.[id number] Take [address] (INDERAL) 11-30 [id number] by mouth 3 [facility]ukes - 20 MG 14:24: 00:00 3D (three) Medical tablet 31 :00 times Center daily. propranoloL 2019- Yes 20mg Q.[id number] Take [address] [facility] (INDERAL) 11-30 [id number] tablet (20 [facility] - 20 MG 00:00: 3D mg total) Medical tablet 00 by mouth 3 Center (three) times daily. senna-docus No 1{tbl} Q.5D Take [address] ate 11-30 tablet by Lukes - (SENOKOT S) 00:00: 23:59 mouth 2 Me dical 8.6-50 mg 00 :00 (two) Center per tablet times daily. pantoprazol No 40mg QD Take [address] [facility] e 11-30 08-10 tablet (40 [facility] - (PROTONIX) 00:00: 00:00 mg total) M edical 40 MG 00 :00 by mouth Center tablet daily. pancrelipas [place] [id number] Take [address] [facility] [facility] e, 11-30 06-17 lipase} capsule [facility]ukes - Lip-Prot-Am 00:00: [...] Center every evening for 90 days. oxyCODONE-a 2019- 2020- No 1{tbl} Take [address] cetaminophe 5-18 06-02 tablet by Eneida kes - n 00:00: 23:59 mouth Medical (PERCOCET) 00 :00 every 8 Center 10-325 mg (eight) per tablet hours as needed for Pain for up to 15 days. Max Daily Amount: 3 tablets promethazin 2019-2019- No 25mg Take [address] [facility] e 5-18 05-25 tablet (25 [facility]ukes - (PHENERGAN) 00:00: 23:59 mg total) Medical 25 MG 00 :00 by mouth Center tablet every 6 (six) hours as needed for up to 7 days. ondansetron 2019-2019- No 4mg Take [address] [facility] (ZOFRAN-ODT [...] daily with dinner for 30 days. ondansetron 2019-2019- No 4mg Take [address] [facility] (ZOFRAN-ODT 4-10 04-27 tablet (4 Eneida kes - ) 4 MG 00:00: 00:00 mg total) Medic al disintegrat 00 :00 by mouth Cent er ing tablet every 8 (eight) hours as needed for up to 7 days. oxyCODONE-a 2020- No 1{tbl} Take [address] cetaminophe 4-10 04-27 tablet by Eneida chaudhrys - n 00:00: 00:00 mouth Medical (PERCOCET) 00 :00 every 4 Center 10-325 mg (four) per tablet hours as needed for up to 10 days. Max Daily Amount: 6 tablets sucralfate Yes 1{tbl} Take [address] [facility] (CARAFATE) 2-05 tablet by Eneidake s - 1 gram 00:00: mouth 4 Medical tablet 00 (four) Center times daily before meals and nightly. rivaroxaban 2019- No 20mg Take [address] [facility] (XARELTO) 04-12- tablet (20 Shawn es - 20 mg Tab 00:00: 23:59 mg total) Me dical tablet 00 :00 by mouth Center daily with dinner for 90 days. amLODIPine 2018- No 10mg QD Take [address] [facility] (NORVASC) 03-25- tablet (10 Shawn es - 10 MG 00:00: 23:59 mg total) Medica l tablet 00 :00 by mouth Center daily for 90 days. nicotine 2019- No 1{patch QD Place [address] (NICODERM 03-24 12 } patch onto Shawn es - CQ) 21 00:00: 23:59 the skin Medica l mg/24 hr 00 :00 daily for Center patch 84 days. folic acid 2019- No 1mg QD Take [address] [facility] (FOLVITE) 1 - 08-10 tablet (1 Eneida kes - MG tablet 00:00: 00:00 mg total) Me dical 00 :00 by mouth Center daily. multivitami 2020- No 1{tbl} QD Take [address] n 8- 05-18 tablet by Christiano - (THERAGRAN) 00:00: 00:00 mouth Medi elvira tablet 00 :00 daily. Center thiamine 2020- No 100mg QD Take 1 [facility] 100 MG 3-21 03-20 tablet [facility]ukes - tablet 00:00: 23:59 (100 mg Medical 00 :00 total) by Center mouth daily. Vital Signs Vital Name Observation Time Observation Value Comments Source Systolic blood 2020-03-19 07:47:00 117 mm[Hg] [facility] Diastolic blood 2020-03-19 07:47:00 79 mm[Hg] [facility] Heart rate 2020-03-19 07:47:00 97 /min [facility] Body temperature 2020-03-19 07:47:00 36 [place] [facility] Respiratory rate 2020-03-19 07:47:00 18 /min [facility] Oxygen saturation in 2020-03-19 07:47:00 99 /min [facility] Arterial blood by Medical Ce nter Pulse oximetry Body weight 2020-03-18 07:02:00 66.633 kg [facility] BMI 2020-03-18 07:02:00 20.49 kg/m2 [facility] Body height 2020-02-28 02:30:00 180.3 cm [facility] Procedures Procedure Date / Time Performing Clinician Source Performed REPORT OF PROCEDURE - 2020-03-23 15:01:52 Provider, Default [facility] ENDOSCOPY SCAN Scanning [facility] RHYTHM STRIP - SCAN 2020-03-23 15:01:42 Provider, Default [facility] Scanning [facility] POTASSIUM 2020-03-19 08:58:00 [facility] SARS-COV2/RT-PCR ([facility] & 2020-03-19 05:45:00 Jannette Wan [facility] - REF LABS) [facility] METABOLIC 2020-03-19 05:33:00 Chad [facility] PHOSPHORUS 2020-03-19 05:33:[facility] 2020-03-19 05:33[facility] W/PLT COUNT & AUTO 2020-03-19 05:33:00 Chad [facility] DIFFERENTIAL [facility] COMPREHENSIVE METABOLIC 2020-03-18 05:41:00 [facility] 2020-03-18 03:28:00 [facility] 2020-03-18 03:28:00 Chad, [facility] CBC W/PLT COUNT & AUTO 2020-03-18 03:28:00 Chad [facility] COMPREHENSIVE METABOLIC 2020-03-17 04:42:00 Chad [facility] PHOSPHORUS 2020-03-17 04:42:00 Chad [facility] MAGNESIUM 2020-03-17 04:42:00 Chad, [facility] CBC W/PLT COUNT & AUTO 2020-03-17 04:42:00 Chad [facility] S [facility] COMPREHENSIVE METABOLIC 2020-03-16 04:50:00 Chad [facility] PHOSPHORUS 2020-03-16 04:50:00 Chad [facility] MAGNESIUM 2020-03-16 04:50:00 Chad [facility] CBC W/PLT COUNT & AUTO 2020-03-16 04:50:00 Chad [facility] S [facility] COMPREHENSIVE METABOLIC 2020-03-15 10:43:00 Chad [facility] PHOSPHORUS 2020-03-15 05:23:00 Chad [facility] MAGNESIUM 2020-03-15 05:23:00 Chad [facility] CBC W/PLT COUNT & AUTO 2020-03-15 05:23:00 Chad [facility] S t [facility] COMPREHENSIVE METABOLIC 2020-03-14 03:39:00 Chad [facility] PHOSPHORUS 2020-03-14 03:39:00 Chad [facility] MAGNESIUM 2020-03-14 03:39:00 Chad [facility] CBC W/PLT COUNT & AUTO 2020-03-14 03:39:00 Chad [facility] S t [facility] COMPREHENSIVE METABOLIC 2020-03-13 08:44:00 [facility] PHOS[facility] 2020-03-13 06:43:00 [facility] MAGNESIUM 2020-03-13 06:43:00 Chad, [facility] CBC W/PLT COUNT & AUTO 2020-03-13 06:43:00 [facility] PHOSPHORUS 2020-03-12 04:18:00 Jannette Wan [facility] COMPREHENSIVE METABOLIC 2020-03-12 04:18:00 Chad, [facility] MAGNESIUM 2020-03-12 04:18:00 [facility] CBC W/PLT COUNT & AUTO 2020-03-12 04:18:00 [facility] SARS-COV2/RT-PCR ([facility] & 2020-03-11 20:27:00 Jannette Wan [facility] REF LABS) [facility] PHOSPHORUS 2020-03-11 04:52:00 Jannette Wan [facility] TRIGLYCERIDES 2020-03-10 04:13:00 Jannette Wan [facility] HEPATIC FUNCTION PANEL 2020-03-10 04:13:00 Jannette Wan [facility] PHOSPHORUS 2020-03-10 04:13:00 Jannette Wan [facility] BASIC METABOLIC PANEL (7) 2020-03-10 04:13:00 hCad [facility] XR CHEST 1 VIEW 2020-03-09 15:17:00 Jannette Wan [facility] COMPREHENSIVE METABOLIC 2020-03-09 05:04:00 CindySarbjit [facility] CBC W/PLT COUNT & AUTO 2020-03-09 05:04:00 Jannette Wan [facility] NM HEPATOBILIARY (HIDA) 2020-03-08 12:26:00 Leopodlo Melendez [facility] COMPREHENSIVE METABOLIC 2020-03-08 06:42:00 CindySarbjit [facility] CBC W/PLT COUNT & AUTO 2020-03-08 05:10:00 Jannette Wan [facility] BASIC METABOLIC PANEL (7) 2020-03-07 03:39:00 Jannette Wan [facility] HEPATIC FUNCTION PANEL 2020-03-07 03:39:00 AzamunWeston [facility] LIPASE 2020-03-07 03:39:00 Weston Antonio [facility] CBC W/PLT COUNT & AUTO 2020-03-07 03:39:00 Jannette Wan [facility] CT ABDOMEN/PELVIS WITH IV 2020-03-06 20:18:00 Fawad Silverman [facility] BASIC METABOLIC PANEL (7) 2020-03-06 05:06:00 Jannette Wan [facility] TISSUE EXAM 2020-03-05 08:32:00 Rosa Forte [facility] LAPAROSCOPY,CHOLECYSTECTO 2020-03-05 07:11:00 Rosa Forte [facility] BASIC METABOLIC PANEL (7) 2020-03-05 04:32:00 Jannette Wan [facility] TRANSFUSION SERVICE 2020-03-04 18:00:40 James Salazar [facility] BASIC METABOLIC PANEL (7) 2020-03-04 04:53:00 Jannette Wan [facility] TYPE AND SCREEN, 2020-03-03 14:49:00 Leslee Kitchen [facility] BASIC METABOLIC PANEL (7) 2020-03-03 06:29:00 Jannette Wan [facility] CBC W/PLT COUNT & AUTO 2020-03-03 06:29:00 Jannette Wan [facility] SARS-COV2/RT-PCR ([facility] & 2020-03-02 17:07:00 Cindy, Sar[facility] HEMOGLOB[facility] AND HEMATOCRIT 2020-03-02 14:33:00 Jannette Wan [facility] BASIC METABOLIC PANEL (7) 2020-03-02 04:53:00 Jannette Wan [facility] CBC W/PLT COUNT & AUTO 2020-03-02 04:53:00 [facility] PR[facility]/INR 2020-03-01 05:00:00 [facility] BASIC METABOLIC PANEL (7) 2020-03-01 05:00:00 [facility] W/PLT COUNT & AUTO 2020-03-01 05:00:00 [facility] centerDarius[facility]vannessa [facility] PROTHROMBIN TIME/INR 2020-02-29 03:53:00 PattiCole [facility] BASIC METABOLIC PANEL (7) 2020-02-29 03:53:00 Cole Gillespie [facility] HEPATIC FUNCTION PANEL 2020-02-29 03:53:00 Cole Gillespie [facility] CBC W/PLT COUNT & AUTO 2020-02-29 03:53:00 Cole Gillespie [facility] URINALYSIS W/ MICROSCOPIC 2020-02-28 17:33:00 Cole Gillespie [facility] BASIC METABOLIC PANEL (7) 2020-02-28 17:05:00 Cole Gillespie [facility] PROTHROMBIN TIME/INR 2020-02-28 17:05:00 PattiCole [facility] SARS-COV2/RT-PCR ([facility] & 2020-02-28 15:15:00 Cole Gillespie [facility] 12-LEAD 2020-02-28 15:06:26 [facility] CT ABDOMEN/PELVIS WITH IV 2020-02-28 05:35:00 Teo [facility] COMPREHENSIVE METABOLIC 2020-02-28 02:29:00 Lauren [facility] PANEL [facility] LIPASE 2020-02-28 02:29:00 Lauren [facility] MAGNESIUM 2020-02-28 02:29:00 Ramona [facility] CBC W/PLT COUNT & AUTO 2020-02-28 02:29:00 Michaelanju [facility] RHYTHM STRIP - SCAN 2020-02-26 10:44:24 Provider, [facility] RHYTHM STRIP - SCAN 2020-02-25 10:40:47 Provider, [facility] REPORT OF PROCEDURE - 2020-02-25 10:40:46 Provider, [facility] ENDOSCOPY SCAN [facility] PROTHROMBIN TIME/INR 2020-02-23 05:03:00 Jeremy Escudero [facility] BASIC METABOLIC PANEL (7) 2020-02-23 05:03:00 Mini [facility] HEPATIC FUNCTION PANEL 2020-02-23 05:03:00 Mini [facility] MAGNESIUM 2020-02-23 05:03:00 Mini [facility] CBC W/PLT COUNT & AUTO 2020-02-23 05:03:00 [facility] PROT[facility] TIME/INR 2020-02-22 05:11:00 Jeremy Escudero [facility] BASIC METABOLIC PANEL (7) 2020-02-22 05:11:00 Mini [facility] HEPATIC FUNCTION PANEL 2020-02-22 05:11:00 Mini [facility] MAGNESIUM 2020-02-22 05:11:00 Mini [facility] CBC W/PLT COUNT & AUTO 2020-02-22 05:11:00 Mini [facility] CORTISOL,60 MIN 2020-02-21 21:26:00 Nya, [facility] CORTISOL,30 MIN 2020-02-21 20:58:00 Nya, [facility] ACTH STIMULATION 2020-02-21 20:12:00 [facility], [facility] CORTISOL,BASELINE 2020-02-21 20:12:00 [facility], [facility] BASIC METABOLIC PANEL (7) 2020-02-21 18:23:00 Ajit Trimble CH I [facility] ECG 12-LEAD 2020-02-21 12:48:34 Unknown, Hl7 [facility] BASIC METABOLIC PANEL (7) 2020-02-21 11:05:00 Regulo Escudero [facility] PROTHROMBIN TIME/INR 2020-02-21 04:51:00 Jeremy Escudero [facility] TROPONIN I 2020-02-21 04:51:00 Jeremy Escudero [facility] BASIC METABOLIC PANEL (7) 2020-02-21 04:51:00 Regulo Escudero [facility] HEPATIC FUNCTION PANEL 2020-02-21 04:51:00 Mini [facility] MAGNESIUM 2020-02-21 04:51:00 Mini [facility] CBC W/PLT COUNT & AUTO 2020-02-21 04:51:00 Mini [facility] BASIC METABOLIC PANEL (7) 2020-02-21 00:22:00 Regulo Escudero [facility] POCT-GLUCOSE METER 2020-02-20 23:24:00 Jeremy Escudero [facility] ECG 12-LEAD 2020-02-20 22:41:27 Unknown, Hl7 [facility] ECG 12-LEAD 2020-02-20 22:39:54 Unknown, Hl7 [facility] BASIC METABOLIC PANEL (7) 2020-02-20 21:17:00 Regulo Escudero [facility] TROPONIN I 2020-02-20 21:17:00 Viralunlea [facility] ECG 12-LEAD 2020-02-20 17:42:41 Unknown, Hl7 [facility] ECG 12-LEAD 2020-02-20 17:42:08 Unknown, Hl7 [facility] HEMOGLOBIN AND HEMATOCRIT 2020-02-20 16:49:00 ViralunRegulo tate [facility] POTASSIUM 2020-02-20 16:47:00 Kena [facility] BASIC METABOLIC PANEL (7) 2020-02-20 16:47:00 Regulo Escudero [facility] REPORT OF PROCEDURE - 2020-02-20 13:44:45 [facility] POTASSIUM 2020-02-20 09:36:00 Civunlea [facility] PROTHROMBIN TIME/INR 2020-02-20 05:02:00 Aby Bernal [facility] BASIC METABOLIC PANEL (7) 2020-02-20 05:02:00 Carli Lima [facility] HEPATIC FUNCTION PANEL 2020-02-20 05:02:00 Mini [facility] MAGNESIUM 2020-02-20 05:02:00 Mini [facility] CBC W/PLT COUNT & AUTO 2020-02-20 05:02:00 Mini [facility] TISSUE EXAM 2020-02-19 13:22:00 Mckenzie Wojciech [facility] UPPER ENDOSCOPY,FNA 2020-02-19 13:11:00 [facility]/ULTR[facility]OUND [facility] UPPER ENDOSCOPY,BIOPSY 2020-02-19 13:11:00 Mckenzie Wojciech [facility] PROTHROMBIN TIME/INR 2020-02-19 04:20:00 DoloresAby mancini [facility] BASIC METABOLIC PANEL (7) 2020-02-19 04:20:00 Mini [facility] HEPATIC FUNCTION PANEL 2020-02-19 04:20:00 Mini [facility] MAGNESIUM 2020-02-19 04:20:00 Mini [facility] CBC W/PLT COUNT & AUTO 2020-02-19 04:20:00 Mini [facility] CBC W/PLT COUNT & AUTO 2020-02-18 06:50:00 Mini [facility] BASIC METABOLIC PANEL (7) 2020-02-18 05:26:00 Mini [facility] HEPATIC FUNCTION PANEL 2020-02-18 05:26:00 Mini [facility] MAGNESIUM 2020-02-18 05:26:00 [facility] SARS-COV2/RT-PCR ([facility] & 2020-02-17 20:42:00 [facility] ANTI-NUCLEAR ANTIBODY 2020-02-17 03:36:00 Nacho [facility] ([facility]) [facility] IGG SUBCLASS-4 ONLY 2020-02-17 03:36:00 Nacho [facility] IMMUNOGLOBULIN G (IGG) 2020-02-17 03:36:00 Nacho [facility] C-REACTIVE PROTEIN 2020-02-17 03:36:00 [facility] BAS[facility]OL[facility] (7) 2020-02-17 03:36:00 Mini [facility] HEPATIC FUNCTION PANEL 2020-02-17 03:36:00 Mini [facility] MAGNESIUM 2020-02-17 03:36:00 [facility] CBC W/PLT COUNT & AUTO 2020-02-17 03:36:00 Mini [facility] TRANSFUSION SERVICE 2020-02-16 18:02:03 Provider, [facility] REPORT - SCAN [facility] MISCELLANEOUS LAB ORDER 2020-02-16 17:23:00 Eric Oakes [facility] MAGNESIUM 2020-02-16 17:23:00 [facility] BASIC METABOLIC PANEL (7) 2020-02-16 17:23:00 Mini [facility] ECG 12-LEAD 2020-02-16 16:10:58 Unknown, H[facility]7 [facility] BASIC METABOLIC PANEL (7) 2020-02-16 04:32:00 Mini [facility] HEPATIC FUNCTION PANEL 2020-02-16 04:32:00 Mini [facility] MAGNESIUM 2020-02-16 04:32:00 [facility] CBC W/PLT COUNT & AUTO 2020-02-16 04:32:00 Mini [facility] RAPID DRUG SCREEN, URINE 2020-02-16 01:29:00 [facility] PT/APTT 2020-02-15 20:02:00 [address] [facility] [address] ABDOMEN/PELVIS WITH IV 2020-02-15 18:50:00 Mini [facility] CONTRAST [facility] ED ECG INTERPRETATION 2020-02-15 16:36:07 Janet [facility] LIPASE 2020-02-15 15:35:00 Janet, [facility] COMPREHENSIVE METABOLIC 2020-02-15 15:35:00 Janet, [facility] TYPE AND SCREEN, 2020-02-15 15:35:00 Janet, [facility] es - AUTOMATED [facility] CBC W/PLT COUNT & AUTO 2020-02-15 15:35:00 Janet, [facility] ECG 12-LEAD 2020-02-15 15:17:58 Unknown, Hl7 [facility] RHYTHM STRIP - SCAN 2020-02-04 12:10:22 Provider, [facility] RHYTHM STRIP - SCAN 2020-01-28 14:50:04 Provider, [facility] PROTHROMBIN TIME/INR 2020-01-26 05:13:00 EdwinpamAleahLydia [facility] BASIC METABOLIC PANEL (7) 2020-01-25 04:07:00 [facility] HEPATIC FUNCTION PANEL 2020-01-25 04:07:00 [facility] MAGNESIUM 2020-01-25 04:07:00 [facility] PHOSPHORUS 2020-01-25 04:07:00 [facility] PROTHROMBIN TIME/INR 2020-01-25 04:07:00 Aleah RobersonLydia [facility] CBC W/PLT COUNT & AUTO 2020-01-25 04:07:00 [facility] CT ABD/PELVIS - PANCREAS 2020-01-25 00:40:00 Isreal Sheppard [facility] SARS-COV2/RT-PCR ([facility] & 2020-01-24 18:32:[address] [facility] - REF LABS) [facility] PROTHROMBIN TIME/INR 2020-01-24 12:36:00 Ken Roberson [facility] BASIC METABOLIC PANEL (7) 2020-01-24 04:00:00 [facility] HEPATIC FUNCTION PANEL 2020-01-24 04:00:00 [facility] MAGNESIUM 2020-01-24 04:00:00 [facility] PHOSPHORUS 2020-01-24 04:00:00 [facility] CBC W/PLT COUNT & AUTO 2020-01-24 04:00:00 [facility] ETHANOL 2020-01-23 19:53:00 Shamika Nichols [facility] CBC (HEMOGRAM ONLY) 2020-01-23 19:53:00 [facility] PROTHROMBIN TIME/INR 2020-01-23 13:34:00 Ken Roberson [facility] CBC (HEMOGRAM ONLY) 2020-01-23 10:52:00 [facility] BASIC METABOLIC PANEL (7) 2020-01-23 05:06:00 [facility] HEPATIC FUNCTION PANEL 2020-01-23 05:06:00 [facility] MAGNESIUM 2020-01-23 05:06:00 [facility] PHOSPHORUS 2020-01-23 05:06:00 [facility] LACTIC ACID, VENOUS 2020-01-23 05:06:00 [facility] CBC W/PLT COUNT & AUTO 2020-01-23 05:06:00 [facility] SARS-COV2/RT-PCR ([facility] & 2020-01-22 23:49:00 [facility] REF LABS) [facility] PT/APTT 2020-01-22 18:24:[address] [facility] LIPASE 2020-01-22 18:24:00 [facility] COMPREHENS[facility]ABOLIC 2020-01-22 18:24:00 [facility] W/[facility]T [facility] & AUTO 2020-01-22 18:24:00 [facility] RHYTHM STRIP - SCAN 2019-12-29 13:11:43 Marie [facility] PROTHROMBIN TIME/INR 2019-12-26 03:56:00 Will Calderon [facility] PROTHROMBIN TIME/INR 2019-12-25 04:15:00 Will Calderon [facility] PROTHROMBIN TIME/INR 2019-12-24 03:55:00 Will Calderon [facility] PROTHROMBIN TIME/INR 2019-12-23 05:10:00 [facility] BASIC METABOLIC PANEL (7) 2019-12-22 04:52:00 [facility] B[facility] PROTHROMBIN TIME/INR 2019-12-22 04:52:00 [facility] CBC W/PLT COUNT & AUTO 2019-12-22 04:52:00 Will Calderon [facility] POCT-GLUCOSE METER 2019-12-21 17:31:00 [facility] BASIC METABOLIC PANEL (7) 2019-12-21 04:27:00 [facility] PROTHROMBIN TIME/INR 2019-12-21 04:27:00 [facility] CBC W/PLT COUNT & AUTO 2019-12-21 04:27:00 [facility] BASIC METABOLIC PANEL (7) 2019-12-20 03:53:00 Marlys Yañez [facility] PROTHROMBIN TIME/INR 2019-12-20 03:53:00 Marlys Yañez [facility] TRANSFUSION SERVICE 2019-12-19 17:51:09 James Salazar [facility] REPORT - SCAN [facility] PROTHROMBIN TIME/INR 2019-12-19 05:37:00 Marlys Yañez [facility] COMPREHENSIVE METABOLIC 2019-12-19 05:37:[address] [facility] CBC W/PLT COUNT & AUTO 2019-12-19 05:37:00 Will Calderon [facility] POCT-GLUCOSE METER 2019-12-18 21:47:00 [facility] URINALYSIS WITH 2019-12-18 10:28:00 Marlys Yañez [facility] s - MICROSCOPIC IF INDICATED [facility] DRUG SCREEN, URINE, 2019-12-18 10:28:00 Will Calderon [facility] TROPONIN I 2019-12-18 10:26:00 [facility] LACT[facility]ID, VENOUS 2019-12-18 10:26:00 [facility] POCT-GLUCOSE METER 2019-12-18 06:52:00 [facility] BLOOD GAS, ARTERIAL 2019-12-18 06:43:00 James [facility] POCT-GLUCOSE METER 2019-12-18 06:23:00 [facility] LACTIC ACID, VENOUS 2019-12-18 02:29:00 Ganesh Herrera [facility] TROPONIN I 2019-12-18 02:29:[address] [facility] BASIC METABOLIC PANEL (7) 2019-12-18 02:29:00 Marlys Yañez [facility] PROTHROMBIN TIME/INR 2019-12-18 02:29:00 [facility]CREEN, 2019-12-18 02:29:00 Marlys Yañez [facility] es - AUTOMATED [facility] CBC W/PLT COUNT & AUTO 2019-12-18 02:29:00 James [facility] DIFFERENTIAL [facility] SARS-COV2/RT-PCR ([facility] & 2019-12-18 00:15:00 [facility] - REF LABS) [facility] BLOOD CULTURE 2019-12-17 22:07:00 Alexey [facility] CT ABDOMEN/PELVIS WITH IV 2019-12-17 22:04:00 David Mcnulty [facility] LACTIC ACID, VENOUS 2019-12-17 20:35:00 [facility] OCC[facility]LOOD, STOOL 2019-12-17 20:10:00 [facility] PT/APTT 2019-12-17 20:10:00 [facility] LIPASE 2019-12-17 20:04:00 FarzadGrabiel Luisito [facility] COMPREHENSIVE METABOLIC 2019-12-17 20:04:00 Grabiel Panda [facility] CBC W/PLT COUNT & AUTO 2019-12-17 20:04:00 FarzadGrabiel Luisito [facility] RHYTHM STRIP - SCAN 2019-12-03 13:10:13 James Salazar [facility] BASIC METABOLIC PANEL (7) 2019-12-01 03:42:00 Will Calderon [facility] PROTHROMBIN TIME/INR 2019-12-01 03:42:00 Mine [facility] CBC W/PLT COUNT & AUTO 2019-12-01 03:42:00 [facility] BASIC METABOLIC PANEL (7) 2019-11-30 05:53:00 Mine [facility] PROTHROMBIN TIME/INR 2019-11-30 05:53:00 Mine [facility] CBC W/PLT COUNT & AUTO 2019-11-30 05:53:00 Mine [facility] BASIC METABOLIC PANEL (7) 2019-11-29 04:24:00 [facility]/INR 2019-11-29 04:24:00 Mine [facility] CBC W/PLT COUNT & AUTO 2019-11-29 04:24:00 Mine [facility] Bhumi [facility] PROTHROMBIN TIME/INR 2019-11-28 03:33:00 Mine [facility] CBC (HEMOGRAM ONLY) 2019-11-28 03:32:00 Mine [facility] BASIC METABOLIC PANEL (7) 2019-11-28 03:32:00 Mine [facility] PROTHROMBIN TIME/INR 2019-11-27 03:46:00 Mine, [facility] BASIC METABOLIC PANEL (7) 2019-11-27 03:46:00 [facility] CBC W/PLT COUNT & AUTO 2019-11-27 03:45:00 Mine [facility] BASIC METABOLIC PANEL (7) 2019-11-26 04:26:00 [facility] (HEMOGRAM ONLY) 2019-11-26 03:43:00 Mine [facility] PROTHROMBIN TIME/INR 2019-11-26 03:43:00 Mine [facility] US RENAL COMPLETE 2019-11-25 13:15:00 [facility] CORT[facility]OL 2019-11-25 11:09:00 [facility] ALDO[facility]ONE 2019-11-25 11:09:00 Mine [facility] CBC (HEMOGRAM ONLY) 2019-11-25 03:26:00 Mine [facility] BASIC METABOLIC PANEL (7) 2019-11-25 03:26:00 Mine [facility] PROTHROMBIN TIME/INR 2019-11-25 03:26:00 [facility]OLIC PANEL (7) 2019-11-24 03:33:00 [facility] W/PLT COUNT & AUTO 2019-11-24 03:33:00 Mine [facility] BASIC METABOLIC PANEL (7) 2019-11-23 14:37:00 Mine [facility] CBC (HEMOGRAM ONLY) 2019-11-23 05:56:00 Mine [facility] BASIC METABOLIC PANEL (7) 2019-11-23 05:56:[address] [facility] BASIC MET[facility]OLIC PANEL (7) 2019-11-22 17:19:00 Mien [facility] COMPREHENSIVE METABOLIC 2019-11-22 08:17:00 Mine Emilymariah Tripathi [facility] CBC W/PLT COUNT & AUTO 2019-11-22 05:29:00 [facility] REPORT OF PROCEDURE - 2019-11-21 15:07:[address] [facility] COLONOSCOPY 2019-11-21 14:04:00 Sheikh [facility] CBC (HEMOGRAM ONLY) 2019-11-21 03:35:00 Mine [facility] BASIC METABOLIC PANEL (7) 2019-11-21 03:35:00 Mine [facility] BASIC METABOLIC PANEL (7) 2019-11-20 03:35:00 Mine [facility] CBC (HEMOGRAM ONLY) 2019-11-20 03:35:00 Mine [facility] BASIC METABOLIC PANEL (7) 2019-11-19 04:29:00 Mine [facility] CBC (HEMOGRAM ONLY) 2019-11-19 04:29:00 Mine [facility] JAK2 MUTATION ([id number]) 2019-11-19 04:29:00 Eneida [facility] CARDIOLIPIN ANTIBODIES, 2019-11-19 04:29:00 Eneida, [facility] - IGG AND IGM [facility] BETA-2 GLYCOPROTEIN 2019-11-19 04:29:00 Eneida, [facility] - ANTIBODIES [facility] PROTHROMBIN GENE MUTATION 2019-11-19 04:29:00 Eneida, [facility] FACTOR 5 LEIDEN PCR 2019-11-19 04:29:00 Eneida, [facility] (THROMBOTIC RISK) [facility] [id number] I IGG 2019-11-19 04:29:00 Eneida, [facility] [id number] I IGM 2019-11-19 04:29:00 Eneida, [facility] [id number] I IGA 2019-11-19 04:29:00 Bushra Monique [facility] BASIC METABOLIC PANEL (7) 2019-11-18 15:08:00 Will Calderon [facility] COMPREHENSIVE METABOLIC 2019-11-18 03:33:[address] [facility] LACTIC ACID, VENOUS 2019-11-18 03:33:00 Nghia Liu [facility] CBC W/PLT COUNT & AUTO 2019-11-18 03:33:00 Will Calderon [facility] TROPONIN I 2019-11-17 21:36:00 Federico Alegria [facility] COMPREHENSIVE METABOLIC 2019-11-17 21:36:00 Nghia Liu [facility] LACTIC ACID, VENOUS 2019-11-17 21:36:00 Nghia Liu [facility] PROCALCITONIN 2019-11-17 21:36:00 Nghia Liu [facility] CBC W/PLT COUNT & AUTO 2019-11-17 21:36:00 Nghia Liu [facility] REPORT OF PROCEDURE - 2019-11-17 14:40:59 Provider, James [facility] ENDOSCOPY SCAN Scanning [facility] MR ABDOMEN WITH & WITHOUT 2019-11-17 09:08:00 Alina Walton [facility] CONTRAST [facility] TROPONIN I 2019-11-14 19:05:00 Federico Alegria [facility] ETHANOL 2019-11-14 19:05:00 Willy Delacruz [facility] ECG 12-LEAD 2019-11-14 11:26:57 Unknown, Hl7 Doctor [facility] BASIC METABOLIC PANEL (7) 2019-11-14 11:17:00 Federico Alegria CH I [facility] HEPATIC FUNCTION PANEL 2019-11-14 11:17:00 Federico Alegria [facility] LIPASE 2019-11-14 11:17:00 [facility] PROT[facility]BIN [facility]/INR 2019-11-14 11:17:00 [facility] MAGNESIUM 2019-11-14 11:17:00 Banguli [facility] PHOSPHORUS 2019-11-14 11:17:[address] [facility] TROPONIN I 2019-11-14 11:17:[address] [facility] CBC W/PLT COUNT & AUTO 2019-11-14 11:17:[address] [facility] XR CHEST 1 VIEW 2019-11-14 11:14:00 [facility] RHYTHM STRIP - SCAN 2019-11-12 08:30:39 Provider, [facility] RHYTHM STRIP - SCAN 2019-11-10 13:37:01 Provider, [facility] BASIC METABOLIC PANEL (7) 2019-11-10 05:21:00 [facility] CORTISOL,60 MIN 2019-11-09 15:36:00 Lydia [facility] BASIC METABOLIC PANEL (7) 2019-11-09 15:10:00 Gurdeep FreemanHany [facility] ACTH STIMULATION 2019-11-09 15:10:00 [facility] CORTISOL,30 MIN 2019-11-09 15:10:00 Lydia [facility] ACTH STIMULATION 2019-11-09 14:27:00 Gurdeep [facility] CORTISOL,BASELINE 2019-11-09 14:27:00 Anabel Freeman [facility] RENIN, PLASMA 2019-11-08 08:22:[address] [facility] ALDOSTERONE 2019-11-08 08:22:[address] [facility] CORTISOL 2019-11-08 08:22:[address] [facility] CBC (HEMOGRAM ONLY) 2019-11-08 04:14:00 Anabel Freeman [facility] BASIC METABOLIC PANEL (7) 2019-11-08 04:14:00 Anabel Freeman [facility] REPORT OF PROCEDURE - 2019-11-07 12:17:34 Mckenzie, [facility] ENDOSCOPY [facility] TISSUE EXAM 2019-11-07 11:22:00 Mckenzie, [facility] UPPER ENDOSCOPY,FNA 2019-11-07 11:04:00 [facility] UPPER ENDOSCOPY,BIOPSY 2019-11-07 11:04:00 Mckenzie, [facility] CBC (HEMOGRAM ONLY) 2019-11-07 04:27:00 Anabel Freeman [facility] BASIC METABOLIC PANEL (7) 2019-11-07 04:27:00 Anabel Freeman [facility] HEPATIC FUNCTION PANEL 2019-11-07 04:27:00 Anabel Freeman [facility] BASIC METABOLIC PANEL (7) 2019-11-06 16:49:00 Nitesh [facility] SODIUM, RANDOM URINE 2019-11-06 11:29:00 Nitesh [facility] POTASSIUM, RANDOM URINE 2019-11-06 11:29:[address] [facility] CHLORIDE, RANDOM URINE 2019-11-06 11:29:00 Nitesh [facility] UREA NITROGEN, RANDOM 2019-11-06 11:29:00 Nitesh [facility] CREATININE, RANDOM URINE 2019-11-06 11:29:00 Nitesh [facility] LACTATE DEHYDROGENASE 2019-11-06 04:35:00 Luis Armando Verde [facility] ([facility]) [facility] BASIC METABOLIC PANEL (7) 2019-11-06 04:35:00 Anabel Freeman CH I [facility] HAPTOGLOBIN 2019-11-06 04:35:00 Luis Armando Verde [facility] POTASSIUM-STAT LAB 2019-11-05 12:29:00 Pallavi Marcbhumi [facility] URINALYSIS WITH 2019-11-05 08:20:00 Trionaye, [facility] - MICROSCOPIC IF INDICATED [facility] SODIUM, RANDOM URINE 2019-11-05 08:20:00 [facility] POTASSIUM, RANDOM URINE 2019-11-05 08:20:[address] [facility] CHLORIDE, RANDOM URINE 2019-11-05 08:20:00 [facility] UREA NITROGEN, RANDOM 2019-11-05 08:20:00 [facility], [facility] CREATININE, RANDOM URINE 2019-11-05 08:20:00 [facility], [facility] BASIC METABOLIC PANEL (7) 2019-11-05 04:09:00 Anabel Freeman [facility] PANCREATIC ELASTASE, 2019-11-05 02:11:00 Luis Enrique Gonzales [facility] POCT-GLUCOSE METER 2019-11-04 23:35:00 Anabel Freeman [facility] BASIC METABOLIC PANEL (7) 2019-11-04 21:37:00 Jennifer [facility] POTASSIUM 2019-11-04 14:59:00 [facility] ACTH STIMULATION 2019-11-04 10:55:00 Anabel Freeman [facility] CORTISOL,60 MIN 2019-11-04 10:55:00 Anabel Freeman [facility] CORTISOL 2019-11-04 10:35:00 [facility], [facility] ACTH 2019-11-04 10:35:[address] [facility] CORTISOL 2019-11-04 09:49:00 [facility], [facility] ACTH 2019-11-04 09:49:00 [facility] BASIC METABOLIC PANEL (7) 2019-11-04 09:02:00 [facility], [facility] POTASSIUM-STAT LAB 2019-11-04 09:02:00 [facility] BASIC METABOLIC PANEL (7) 2019-11-04 05:52:00 Anabel Freeman [facility] CORTISOL 2019-11-04 05:52:00 [facility] POCT-GLUCOSE METER 2019-11-04 02:12:00 Anabel Freeman [facility] ECG 12-LEAD 2019-11-04 01:36:45 Unknown, Hl7 [facility] POTASSIUM 2019-11-03 23:35:00 [facility] URINALYSIS WITH 2019-11-03 17:17:00 [facility] IF INDICATED [facility] OSMOLALITY, URINE 2019-11-03 17:16:00 [facility] OSMOLALITY, SERUM 2019-11-03 16:25:00 [facility], [facility] RENIN, PLASMA 2019-11-03 16:25:00 [facility], [facility] ALDOSTERONE 2019-11-03 16:25:00 [facility], [facility] POTASSIUM-STAT LAB 2019-11-03 12:44:00 Pallavi Marc [facility] SODIUM, RANDOM URINE 2019-11-03 11:39:00 [facility] POTASSIUM, RANDOM URINE 2019-11-03 11:39:00 TrioJason [facility] CHLORIDE, RANDOM URINE 2019-11-03 11:39:00 Jennifer, [facility] UREA NITROGEN, RANDOM 2019-11-03 11:39:00 [facility] CREATININE, RANDOM URINE 2019-11-03 11:39:00 [facility], [facility] LACTIC ACID, VENOUS 2019-11-03 11:07:00 [facility], [facility] POTASSIUM 2019-11-03 11:07:00 Monico Pallavilorenzo Lmia [facility] BASIC METABOLIC PANEL (7) 2019-11-03 07:34:00 Obdulia Patino [facility] CREATINE KINASE (CK) 2019-11-03 07:34:00 Pallavi Marc [facility] ECG 12-LEAD 2019-11-03 06:37:09 Obdulia Patino [facility] ECG 12-LEAD 2019-11-03 06:36:55 Unknown, Hl7 [facility] BASIC METABOLIC PANEL (7) 2019-11-03 04:54:00 [facility] CALCIUM, IONIZED 2019-11-03 04:54:00 [facility] PHOSPHORUS 2019-11-03 04:54:00 [facility] [place] MAGNESIUM 2019-11-03 04:54:00 Casey [facility] CBC W/PLT COUNT & AUTO 2019-11-03 04:54:00 Clovis Rangel [facility] ECG 12-LEAD 2019-11-02 18:35:09 Unknown, Hl7 Doctor [facility] BASIC METABOLIC PANEL (7) 2019-11-02 17:48:00 Clovis Rangel [facility] POCT-GLUCOSE METER 2019-11-02 14:54:00 Clovis Rangel [facility] BASIC METABOLIC PANEL (7) 2019-11-02 12:25:00 Clovis Rangel [facility] COMPREHENSIVE METABOLIC 2019-11-02 06:24:00 Clovis Rangel [facility] CALCIUM, IONIZED 2019-11-02 04:27:00 Clovis Rangel [facility] PHOSPHORUS 2019-11-02 04:27:00 Clovis Rangel [facility] MAGNESIUM 2019-11-02 04:27:00 Clovis Rangel [facility] CBC W/PLT COUNT & AUTO 2019-11-02 04:27:00 Clovis Rangel [facility] MR ABDOMEN WITH & WITHOUT 2019-11-01 14:40:00 Erin Gonzales [facility] - IV CONTRAST [facility] COMPREHENSIVE METABOLIC 2019-11-01 04:51:00 Clovis Rangel [facility] CALCIUM, IONIZED 2019-11-01 04:51:00 Clovis Rangel [facility] PHOSPHORUS 2019-11-01 04:51:00 Clovis Rangel [facility] MAGNESIUM 2019-11-01 04:51:00 Clovis Rangel [facility] CBC W/PLT COUNT & AUTO 2019-11-01 04:51:00 Clovis Rangel [facility] TRANSFUSION SERVICE 2019-10-31 18:02:43 ProviderJames [facility] REPORT - SCAN Scanning [facility] VITAMIN B12 AND FOLATE 2019-10-31 04:20:00 Clovis Rangel [facility] HEMOGLOBIN A1C 2019-10-31 04:20:00 [facility] [place] LIPID PANEL 2019-10-31 04:20:00 Casey [facility] MAGNESIUM 2019-10-31 04:20:00 [facility] [place] PHOSPHORUS 2019-10-31 04:20:00 Casey [facility] CALCIUM, IONIZED 2019-10-31 04:20:00 [facility] COMPREHENSIVE METABOLIC 2019-10-31 04:20:00 Clovis Rangel [facility] LACTIC ACID, VENOUS 2019-10-31 04:20:00 Casey [facility] CBC W/PLT COUNT & AUTO 2019-10-31 04:20:00 Clovis Rangel [facility] LACTIC ACID, VENOUS 2019-10-30 16:55:00 Casey [facility] PROCALCITONIN 2019-10-30 16:55:00 Casey [facility] LACTIC ACID, VENOUS 2019-10-30 14:40:00 [facility] 2019-10-30 14:40:00 [facility] TROPONIN I 2019-10-30 13:49:00 [facility] CTA ABDOMEN & PELVIS 2019-10-30 11:50:00 [facility] TROPONIN I 2019-10-30 10:14:00 [facility] PT/APTT 2019-10-30 10:14:00 [facility] LACTIC ACID, VENOUS 2019-10-30 10:14:00 [facility] BASIC [facility]OLIC PANEL (7) 2019-10-30 10:14:00 Hasmukh Domingo [facility] HEPATIC FUNCTION PANEL 2019-10-30 10:14:00 Shinthia, [facility] LIPASE 2019-10-30 10:14:00 Shinthia, [facility] TYPE AND SCREEN, 2019-10-30 10:14:00 Shinthia, [facility] es AUTOMATED [facility] CBC W/PLT COUNT & AUTO 2019-10-30 10:14:00 [facility] ECG 12-LEAD 2019-10-30 09:38:59 Unknown, Hl7 [facility] BASIC METABOLIC PANEL (7) 2019-10-24 04:22:00 [facility] W/[facility]T COUNT & AUTO 2019-10-24 04:22:00 [facility] BASIC METABOLIC PANEL (7) 2019-10-23 03:39:00 [facility] W/PLT COUNT & AUTO 2019-10-23 03:39:00 [facility] BASIC METABOLIC PANEL (7) 2019-10-22 03:26:00 [facility] W/PLT COUNT & AUTO 2019-10-22 03:26:00 [facility] POCT-GLUCOSE METER 2019-10-21 20:50:[address] [facility]EN/PELVIS WITH IV 2019-10-21 15:56:00 Juan Naidu [facility] LIPASE 2019-10-21 14:07:00 Juan Naidu [facility] BASIC METABOLIC PANEL (7) 2019-10-21 14:07:00 Juan Naidu [facility] HEPATIC FUNCTION PANEL 2019-10-21 14:07:00 Juan Naidu CH I [facility] URINALYSIS W/ REFLEX 2019-10-21 14:07:00 Juan Naidu [facility] URINE CULTURE [facility] LACTIC ACID, VENOUS 2019-10-21 14:07:00 Juan Naidu [facility] CBC W/PLT COUNT & AUTO 2019-10-21 14:07:00 Juan Naidu CH I [facility] RAPID DRUG SCREEN, URINE 2019-10-21 14:03:00 Liza Carlin [facility] Plan of Care Planned Activity Planned Date Details Comments Source Future Scheduled 2022-10-30 Lipid panel [facility] s - Test 00:00:00 (procedure) [code = [facility] 71471112] Future Scheduled 2020-03-16 INFLUENZA VACCINE (#1) C HI [facility] - Test 00:00:00 [code = INFLUENZA Medical Ce nter VACCINE (#1)] Future Scheduled 1991 PNEUMOCOCCAL VACCINE [facility] - Test 00:00:00 0-64 YRS (1 of 1 - Medical C enter PPSV23) [code = PNEUMOCOCCAL VACCINE 0-64 YRS (1 of 1 - PPSV23)] Results Test Description Test Time Test Comments Results Result Comments Source SARS-CoV2/RT-PCR (Asymptomatic ONLY) 2020-03-19 10:47:00 Test Item Value Reference Range Interpretation Comme nts SARS-COV2/RT-PCR (test code = Negative Not Detected, 42390-0) Negative, See external report for linked test SARS-COV-[address] [facility] (test code = 01142-4) RADHA (test code = RADHA) Negative result [...] of the Act. Fact Sheet for Healthcare Providers:https://www.SiteJabber/sites/default/files/produ ct/documents/Fact_Sheet_HC_Pr xzcohkd_Qfya_NPKW-LzP-7.pdf Fact Sheet for Healthcare Patients:https://www.C$ cMoney /sites/default/files/produc t/documents/Fact_Sheet_Patien hj_Fohj_BHEH-HyT-7.pdf Performing Laboratory:[place] [address] [address]-COV2/RT-PCR ([facility])2020-03-19 10:47:00 Test Item Value Reference Range Interpretation Comments SARS-COV2/RT-PCR (test Negative Not Detected, Negative, code = 6993091) See external report for linked test SARS-COV-[address] [facility] (test code = 7329784) Negative result for this test determines that [...] a nasopharyngeal swab specimen collected from individuals susp ected of COVID-19 by their healthcare provider.This test [...] 564(g) of the Act.Fact Sheet for Healthcare Providers:https://www.[place].[employer]meg Education/sites/default/files/product/documents/Fact_Shee c_FP_Rkfepmrao_Gzxt_ONYR-PrB-9.pdfFact Sheet for Healthcare Patients:https://www.[place].[employer]/sites/default/files/product/ documents/Enxc_Abnoj_Cbzjnbvh_Gnhf_ROHQ-UgK-7.pdfPerforming Laboratory:[facility], [place] [id number] 09:21:00 Test Item Value Reference Range Interpretation Comments Potassium (test code = 5.7 meq/L 3.5-5.1 H 2823-3) RADHA (test code = RADHA) Refresh Technician ID - PIAYA L Lab Interpretation (test Abnormal code = 52085-9) [facility]2020-09-04 09:21:00 Test Item Value Reference Range Interpretation Comments POTASSIUM (BEAKER) (test code = 5.7 meq/L 3.5-5.1 H 379) Refresh Technician ID - PIAYA LComprehensive metabolic [id number] 06:41:00 Test Item Value Reference Range Interpretation Comments Protein, Total (test 7.1 6.0- 8.3 gm/dL code = 2885-2) Albumin (test code = 4.1 g/dL 3.5-5 30363-3) Alkaline Phosphatase 120 U/L 40-150 (test code = 6768-6) Total Bilirubin (test 0.2 mg/dL 0.2-1.2 code = 1974-2) Sodium (test code = 138 meq/L 197-688 4778-2) Potassium (test code = 6.1 meq/L 3.5-5.1 HH 2823-3) Chloride (test code = 108 meq/L 98-107 H 2075-0) CO2 (test code = 24 meq/L 22-29 8-9) BUN (test code = 10 mg/dL 7-21 3094-0) Creatinine (test code 0.64 mg/dL 0.57-1.25 = 2160-0) Glucose (test code = 91 mg/dL 70-105 2345-7) Calcium (test code = 9.3 mg/dL 8.4-10.2 68140-3) AST (test code = 24 U/L 5-34 1920-8) ALT (test code = 59 U/L 6-55 H 1742-6) EGFR (test code = 144 mL/min/1.73 [place] [address]-1) NOT ACCURATE CREATININE CLEARANCE IN PREDICTING GLOMERULAR FILTRATION RATE . ESTIMATED GFR I S NOT APPLICABLE FOR DIALYSIS PATIENTS. RADHA (test code = RADHA) Refresh Technician ID - EDASI Lab Interpretation Abnormal (test code = 09083-7) [facility] Center[facility]PRE[facility]IVE METABOLIC [id number] 06:41:00 Test Item Value Reference Range Interpretation [...] S NOT APPLICABLE FOR DIALYSIS PATIEN TS. Refresh Technician ID - [id number] 06:32:00 Test Item Value Reference Range Interpretation Comments Magnesium (test code = 1.7 mg/dL 1.6-2.6 97094-5) RADHA (test code = RADHA) Refresh Technician ID - EDASI Lab Interpretation (test Normal code = 84477-7) [facility] Center[facility]2020-09-04 06:32:00 Test Item Value Reference Range Interpretation Comments Phosphorus (test code = 3.6 mg/dL 2.3-4.7 2777-1) RADHA (test code = RADHA) Refresh Technician ID - EDASI Lab Interpretation (test Normal code = 68906-8) [facility]OS[facility]US2020-09-04 06:32:00 Test Item Value Reference Range Interpretation Comments PHOSPHORUS (BEAKER) (test code = 3.6 mg/dL 2.3-4.7 604) Refresh Technician ID - [id number] 06:32:00 Test Item Value Reference Range Interpretation Comments MAGNESIUM (BEAKER) (test code = 1.7 mg/dL 1.6-2.6 627) Refresh Technician ID - EDASICBC with platelet count + automated [id number] 05:58:00 Test Item Value Reference Range Interpretation [...] 450 K/CU MM MPV (test code = 62633-5) 10.4 fL 9.4-12.4 nRBC (test code = [...] 2801) Lab Interpretation (test code = Abnormal 77709-9) [facility] W/PLT COUNT & AUTO [id number] 05:58:00 Test Item Value Reference Range Interpretation [...] (BEAKER) (test code = 2801) COMPREHENSIVE METABOLIC [id number] 07:35:00 Test Item Value Reference Range Interpretation [...] S NOT APPLICABLE FOR DIALYSIS PATIEN TS. Refresh Technician ID - [id number] 04:38:00 Test Item Value Reference Range Interpretation Comments PHOSPHORUS (BEAKER) (test code = 2.8 mg/dL 2.3-4.7 604) Refresh Technician ID - [id number] 04:38:00 Test Item Value Reference Range Interpretation Comments MAGNESIUM (BEAKER) (test code = 1.8 mg/dL 1.6-2.6 627) Refresh Technician ID - LACBC W/PLT COUNT & AUTO [id number] 04:12:00 Test Item Value Reference Range Interpretation [...] H PERCENT (BEAKER) (test code = 2801) [id number] 07:10:00 Test Item Value Reference Range Interpretation Comments PHOSPHORUS (BEAKER) (test code = 5.1 mg/dL 2.3-4.7 H 604) Refresh Technician ID - [id number] 07:10:00 Test Item Value Reference Range Interpretation Comments MAGNESIUM (BEAKER) (test code = 1.9 mg/dL 1.6-2.6 627) Refresh Technician ID - NTPCOMPREHENSIVE METABOLIC [id number] 07:10:00 Test Item Value Reference Range Interpretation [...] S NOT APPLICABLE FOR DIALYSIS PATIEN TS. Refresh Technician ID - NTPCBC W/PLT COUNT & AUTO [id number] 06:46:00 Test Item Value Reference Range Interpretation [...] = 2801) CBC W/PLT COUNT & AUTO [id number] 06:52:00 Test Item Value Reference Range Interpretation [...] H PERCENT (BEAKER) (test code = 2801) [id number] 06:33:00 Test Item Value Reference Range Interpretation Comments PHOSPHORUS (BEAKER) (test code = 4.0 mg/dL 2.3-4.7 604) Refresh Technician ID - [id number] 06:33:00 Test Item Value Reference Range Interpretation Comments MAGNESIUM (BEAKER) (test code = 1.7 mg/dL 1.6-2.6 627) Refresh Technician ID - EDASICOMPREHENSIVE METABOLIC [id number] 06:33:00 Test Item Value Reference Range Interpretation [...] S NOT APPLICABLE FOR DIALYSIS PATIEN TS. Refresh Technician ID - EDASICOMPREHENSIVE METABOLIC [id number] 11:15:00 Test Item Value Reference Range Interpretation [...] S NOT APPLICABLE FOR DIALYSIS PATIEN TS. Refresh Technician ID - MATI CCBC W/PLT COUNT & AUTO [id number] 06:53:00 Test Item Value Reference Range Interpretation [...] GRANULOCYTES-RELATIVE PERCENT (BEAKER) (test code = 2801) [id number] 06:18:00 Test Item Value Reference Range Interpretation Comments MAGNESIUM (BEAKER) 2.1 mg/dL 1.6-2.6 Specimen slightly (test code = 627) hemolyzed Refresh Technician ID - IDALIA [id number] 06:18:00 Test Item Value Reference Range Interpretation Comments PHOSPHORUS (BEAKER) 3.0 mg/dL 2.3-4.7 Specimen slightly (test code = 604) hemolyzed Refresh Technician ID - IDALIA [id number] 04:52:00 Test Item Value Reference Range Interpretation Comments PHOSPHORUS (BEAKER) (test code = 4.4 mg/dL 2.3-4.7 604) Refresh Technician ID - IDALIA [id number] 04:52:00 Test Item Value Reference Range Interpretation Comments MAGNESIUM (BEAKER) (test code = 1.9 mg/dL 1.6-2.6 627) Refresh Technician ID - IDALIA LCOMPREHENSIVE METABOLIC [id number] 04:52:00 Test Item Value Reference Range Interpretation [...] S NOT APPLICABLE FOR DIALYSIS PATIEN TS. Refresh Technician ID - PIAYA LCBC W/PLT COUNT & AUTO [id number] 04:23:00 Test Item Value Reference Range Interpretation [...] (BEAKER) (test code = 2801) COMPREHENSIVE METABOLIC [id number] 09:16:00 Test Item Value Reference Range Interpretation [...] S NOT APPLICABLE FOR DIALYSIS PATIEN TS. Refresh Technician ID - MATI [id number] 07:46:00 Test Item Value Reference Range Interpretation Comments MAGNESIUM (BEAKER) 2.2 mg/dL 1.6-2.6 Specimen slightly (test code = 627) hemolyzed Refresh Technician ID - MATI [id number] 07:46:00 Test Item Value Reference Range Interpretation Comments PHOSPHORUS (BEAKER) 3.3 mg/dL 2.3-4.7 Specimen slightly (test code = 604) hemolyzed Refresh Technician ID - MATI CCBC W/PLT COUNT & AUTO [id number] 07:09:00 Test Item Value Reference Range Interpretation [...] (BEAKER) (test code = 2801) SARS-COV2/RT-PCR ([facility])2020-03-12 09:49:00 Test Item Value Reference Range Interpretation Comments SARS-COV2/RT-PCR (test code Negative Not Detected, Negative, = 4971742) See external report for linked test SARS-COV-[address] [facility] (test code = 1687628) Negative results do not preclude SARS-CoV-2 infection [...] of the Act.Fact Sheet for Healthcare Pro viders:https://www.PayTouch/Documents/Xpert%20Xpress%20SARS%20CoV-2/Fact%20Sh eets/302-3802%56BHOJ-PBZ-1%20HEALTHCARE%20PROVIDERS%20FACT%20SHEET.pdfFact Sheet for Healthcare Patients:https://www.Gocella/Documents/Xpert%20Xpress%20SARS%20CoV-2/Fact%20Sheets/302-3801%20SARS-COV -2%20PATIENT%20FACT%20SHEET.pdfPerforming Laboratory:[address] [place], [place] [id number] 05:24:00 Test Item Value Reference Range Interpretation Comments PHOSPHORUS (BEAKER) (test code = 2.8 mg/dL 2.3-4.7 604) Refresh Technician ID - ANA [id number] 05:24:00 Test Item Value Reference Range Interpretation Comments MAGNESIUM (BEAKER) (test code = 1.8 mg/dL 1.6-2.6 627) Refresh Technician ID - ANA MCOMPREHENSIVE METABOLIC [id number] 05:24:00 Test Item Value Reference Range Interpretation [...] S NOT APPLICABLE FOR DIALYSIS PATIEN TS. Refresh Technician ID - ANA MCBC W/PLT COUNT & AUTO [id number] 04:53:00 Test Item Value Reference Range Interpretation [...] 0-1 PERCENT (BEAKER) (test code = 2801) [id number] 06:01:00 Test Item Value Reference Range Interpretation Comments PHOSPHORUS (BEAKER) (test code = 2.4 mg/dL 2.3-4.7 604) Refresh Technician ID - NTPBasic Metabolic [id number] 09:11:00 Test Item Value Reference Range Interpretation Comments Sodium (test code = 140 meq/L 156-654 1390-2) Potassium (test code = 3.8 meq/L 3.5-5.1 2823-3) Chloride (test code = 106 meq/L 98-107 2075-0) CO2 (test code = 25 meq/L 22-29 2028-9) BUN (test code = 3 mg/dL 7-21 L 3094-0) Creatinine (test code 0.64 mg/dL 0.57-1.25 = 2160-0) Glucose (test code = 137 mg/dL 70-105 H 2345-7) Calcium (test code = 8.5 mg/dL 8.4-10.2 11737-5) EGFR (test code = 144 mL/min/1.73 [place] [address]-5) NOT ACCURATE CREATININE CLEARANCE IN PREDICTING GLOMERULAR FILTRATION RATE . ESTIMATED GFR I S NOT APPLICABLE FOR DIALYSIS PATIENTS. RADHA (test code = RADHA) Refresh Technician ID - MATI Calderon Lab Interpretation Abnormal (test code = 51190-0) [facility] Center[facility]OLIC [id number] 09:11:00 Test Item Value Reference Range Interpretation [...] S NOT APPLICABLE FOR DIALYSIS PATIEN TS. Refresh Technician ID - MATI CHepati function [id number] 05:56:00 Test Item Value Reference Range Interpretation Comments Protein, Total (test code 6.3 6.0- 8.3 gm/dL = 2885-2) Albumin (test code = 3.7 g/dL 3.5-5 97330-2) Total Bilirubin (test code 0.2 mg/dL 0.2-1.2 = 1974-2) Bilirubin, Direct (test 0.1 mg/dL 0.1-0.5 code = 1968-7) Alkaline Phosphatase (test 140 U/L 40-150 code = 6768-6) AST (test code = 1920-8) 62 U/L 5-34 H ALT (test code = 1742-6) 127 U/L 6-55 H RADHA (test code = RADHA) Refresh Technician ID - IDALIA Yousif Lab Interpretation (test Abnormal code = 12695-8) [facility] CenterTriglycerides2020-08-26 05:56:00 Test Item Value Reference Range Interpretation Comments Triglycerides (test 74 mg/dL code = 2571-8) RADHA (test code = RADHA) TRIGLYCERIDE REFERENCE RANGELow Risk <150Borderline Risk 150-199High Risk 200-499Very High Risk >=500Operator ID - IDALIA Dodd [id number] 05:56:00 Test Item Value Reference Range Interpretation Comments TRIGLYCERIDES (BEAKER) (test code = 74 mg/dL 540) TRIGLYCERIDE REFERENCE RANGELow Risk <150Borderline Risk 150-199High Risk 200-499Very High Risk>=500Operator ID - IDALIA [id number] 05:56:00 Test Item Value Reference Range Interpretation Comments PHOSPHORUS (BEAKER) (test code = 3.5 mg/dL 2.3-4.7 604) Refresh Technician ID - IDALIA LHEPATIC FUNCTION [id number] 05:56:00 Test Item Value Reference Range Interpretation [...] code = 127 U/L 6-55 H 347) Refresh Technician ID - IDALIA LRAD, CHEST, 1 VIEW, NON [id number] 15:36:00Reason for exam:->post picc line insertionShould this [...] Orta Verified Date/Time: 03/09/2020 15:36:17 Reading Location: [facility] Radiology Reading Room XR chest 1 view portable / [id number] 15:36:00Interface, External Ris In - 03/09/2020 3:38 PM CDTFINAL REPORT INDICATION: post picc line insertion COMPARISON: None TECHNIQUE: Single frontal view of the chest. FINDINGS: Lungs and pleura: Clear lungs. No effusion.Heart and mediastinum: Normal heart size. Unremarkable mediastinal contours.Osseous structures: No acute abnormality.Other: PICC tip overlies the SVC. IMPRESSION:No acute intrathoracic abnormality. Signed: Purvi Orta Verified Date/Time: 03/09/202015:36:17 Reading Location: [facility] Radiology Reading Room [facility] [id number] 07:16:00 Test Item Value Reference Range Interpretation [...] S NOT APPLICABLE FOR DIALYSIS PATIEN TS. Refresh Technician ID - JEFFRY WCBC W/PLT COUNT & AUTO [id number] 06:19:00 Test Item Value Reference Range Interpretation [...] PERCENT (BEAKER) (test code = 2801) Tissue [id number] 15:29:00 Test Item Value Reference Range Interpretation Comments Case Report (test code Surgical Pathology = 104) Report Case: [id number] Authorizing Provider: Rosa Forte MD Collected: 03/05/2020 08:32 AM Ordering Location: [facility] Received: 03/05/2020 10:12 AM SERVICES Pathologist: Inocencio Carballo MD Specimen: Gallbladder DIAGNOSIS (test code = x8fhrHEzIRXmw4tzAKKltWV 3220) uZzEwMzNcZnRuYmpcdWMxIH pmxcDeKQvdm8HdY3FoVsLhE FxhbnNpXGRlZmxhbmcxMDMz PAS0xeIyJEOhFPnaQFHhZXj dGp8mnHWxzBhjXiKpLBHci4 btjoXGretrzKa9u2ryXMFrK xC4pFOvOBmkN1rdpoTcuIHn SWGxZDc0nZ06JTTeyF5cpMF nNEggprHnQhW8BMumTLLpUq H9DRZcjEPdPCIoB0leYKEdA UocDRIlJQdzhUFhWCK6bKyi l7L0eSRspPSquBdyIwRxIwZ qVFPOw5OnWOi4mMdxD2HxDT VjKbY3iHRqXSWzSTgwOBSlW DVnmzJ8cE03EGfdnpL7vCDe a4Odd20wk458oI5haCSdFCU 1BRCtACGvrWBcMCFuZQD3AG MudOXgL2k8SbGrgIFcU5I1L xKncCQyV7Q2IfFaxJGvV9M6 WiGxfGBqNJHdtEAlQf6xbIP xkAVecv2gqi22WYM7n8PhjH oqICT4RYY1DhEnGt4nmXZcD TEaEQ4kMjKltNZeUCNmvu83 mHepQLobqgZqwQ5yEgWeIWI lvYIzZKKeHZ2tyILfSGZarJ 5ucmxjXHBnYnJkcmhlYWRcc FhyxjAzDl9amSqtRDR8HRjy M2ptnQ7pJqA9ZArqJ8dqtG7 rDNn8FOaklKL9LLCblZ1qYR 3kecwkq6yjUnVyXX2clatkc 9nqXvUvHP3diej4q3tkWyOe HL4leljjj2nvOlWmOPtzBBM qanfaETSjy0OivvwpYLVup1 PaE8AlzAlxA15weQxlI26fJ CLvwLkvlJ8fcFvqaE1zRfPu ZnMyNFxxbFxwbGFpblxmMVx mczIwXGxhbmcxMDMzXGhpY2 uwQxZbALQkzTfeDSbie9QcF OMjBINsOqQzIA2cL8YPFFXD OGQIXVEvCGZCZ6uVP4aUNEX TQN5KTPevyTFuJX0oMBTEZE IKWvaVPFUMY8bNP8oVAVfDF NJfpJRyaGltpeKvTIbpb7Ai TUluVUQxJS6yxEhyFXPgUH3 bPPTiT4eziA0vaca9AmNyNX OdHnY0PNEyudV8Rae8SNXzI Nmxv5ooo8AbFEVlTMp5vUvp GaXzDSPwj2iqdlJqJwAhWRI rSFVmHFJtdSNpL665k7nwe2 emkiAcrFS1JZRjAUR7ZGcjm xViwuO9VJsbmKQjFtZ4JFwk qsImIEmqfeXswcAmBms0FPQ pM888TIC7aJpte8hzHYR4ZT ZvIKPsBwZzYp5rhIXgS633U CYiMPXYFNGnjHs0WOSoopAg gfWypAGEb366J247a8mkJXV xrpSobXiXvcwks0heS167EX BhcGVydzEyMjQwXHBhcGVya OV5KJSzRP4wbpqjFGesOXlo HTVwrwD1EEHbsMFjL6XfBAX xKU5qlqokNCB0TCnyBBEgTF P4CuSsYSZpo7Ozqaq9TsLkm n0gun23CGJ9i9UzbCsqVCC9 TWI7ZaMxLq1hdYQsVIQwMW5 mFnLqlYSyLQZvti50qSgnLM bsNII9MEGufsQwf3Tsv5pdH rEwinFtG9byN8QbHLXoJLTm MPWoCpWetmRfe7Jbr9RhnHA nsBo8u8zdQXVyWCVucXhqj7 cbUUY9JMLltBOgU6xmdV9lE FDgQQ5auzudb9aeZDkqDWci HGRemMH4fnK1UDMukDEzF3Y efM5kMWZyIOlzLUKlggl2Ls MzNv6qiQVjcFlnSVuoPjqaK WdlXHBnbmNvbnRccGduZGVj XHBsYWluXHBsYWluXGYwXGZ zMjRccWxcbGFuZzEwMzNcaG ljaFxmMVxkYmNoXGYxXGxvY 2wgCqQoEkMjWwo1GSJxzGEx FLBpQlq1YQYqsYIjGEDOxVm eoU2sIAIilWjtoJ4syME6LT HomuJcuEPCjI8oVWHXjP7xB pX7OcIoOlK6CIx8FxZpiKIc fX0= CPT Code(s) (test code q3fnlXGjMPXxjEUxRfPdHRC = 3357) qUDXeq1ulKBYkdLMaGpTnOe NcZnRuYmpcdWMxXGRlZmYwe 2cwq662zRSgg6yrOTQrNtD0 uXQnZFUqkJXaN172n0dwk4o wgdUyvGL8KOSqOKM3LUgcdr HhdqU6MZxtnQVyZoA5BWfos kLdTLoscxQajvEuGkd3LCOu M349OHL9zYorl6boTDH5EEY fWKVoKwNeBo9jdSWqF763YZ LoMJMBFPTgoQf7STSukqVui yLuvXWAs499Z989a2tzLEYi hnMkcIkMsuigk6loM232JXZ hcGVydzEyMjQwXHBhcGVyaD S6IYZqKI5mzkkhWpKnWN3dj zksKdPvVU4phyg5MwJlFB4n cmdiNzIwXGhlYWRlcnkwXGZ za6OcbpyuUK0eQ0Gwx6X8hK 9maXRcZGVmdGFiNzIwXGZvc f9ceZVwNXwdl5JkJVF2jaN6 nAYywKCnUCNqWV27Llrop8Y rCvhvOKU0JPMhzlXbi5Mky7 hiRjNbnpLoL5gzD2ZtBMOpY VJgNRZoEnEtohOzs0Ejn1Xd nAVkcEj6m7qeYFObSEGsiCz fa3xkNAP0XTDzA6R5uSXrj7 roECmcHSHhzKJ6pncuTHvlM CTpnwD5kmdqDIkiAYMdvWM5 ivtaUEsvDWEhHcF3gtsdVLr lXCIjBIR9PPonn155DEZ1IF xzYmtwYWdlXHBnbmNvbnRcc GduZGVjXHBsYWluXHBsYWlu XGYwXGZzMjRccWxccGxhaW5 lSbNzStBnNAeqNV4pOLTbY1 yapORkVZEeEWQtV5xfIbOne K5kgSzcFUnqwyZmVMu4IzQ7 XHBhcn0= CLINICAL HISTORY (test d7qplWYxKXSbxYSvJnKgKIC code = 3356) qCLBdh8zxVGUanSMpXbOvMv NcZnRuYmpcdWMxXGRlZmYwe 0ntc273pUOfj3cmGBRdCeM3 cFEcYLFosUQgQ293v8smi3y kcgViuKG2JBZoFHT9TPqkur XyfwY7WNlzwLJcUpV4YJnfh tLmEBcdjsYjklGwSgg5YBPf T259EZG2dDjjp3xzBSY2NGY hPMLzVwOvUo6ouSFrN094OQ FfDTOKIPTfkLu0QLHwobUaz fUvcWIQk810S321z0kmITNz tlMykCpQynlww5qnR031GDO hcGVydzEyMjQwXHBhcGVyaD A9KQOqFU1krelmWsPzJC9sx hacLzPvBM5jaah7RjEiGW5u cmdiNzIwXGhlYWRlcnkwXGZ vd7WecqliMM0yW7Hfx0V5cO 9maXRcZGVmdGFiNzIwXGZvc e2jfDSvCHbhi7QlYJD1ykQ5 cVSykFMuVRQwAC74Dkpqk5Q iFtbnOMJ7WNZxltUai1Nsq2 tdRuUtloIdN5laX1StGBPbK OWvIGVuNjWxzfRme2Jqg6Zd rXXcvIs4h7orDMOxTGCjrZh ou1rmHNF5TGMaU2V9mGFtl7 pwGJdmTKFlwPR3retrJLhhH PHpkrT3jdnkXPrxRZVypPF2 yvzrZRohUSYfQfF5ovklCOn kSDTgMND9ZUqyw670KLT6XD xzYmtwYWdlXHBnbmNvbnRcc GduZGVjXHBsYWluXHBsYWlu XGYwXGZzMjRccWxccGxhaW5 jSaQzSqBuFPqnNW8hXQLsZ2 igiXJbNXVtPOYgU0tnNeEhs D8edMniBMuvvuUlCSBpKC4w LULkBWmaf2KpeendSP83vXG iQPFsmr4hoDGwpZAaO7XrRY RpdGlzIFxwYXJ9 SPECIMEN SOURCE (test k7juaHXbBCWnkZKmTiDyETY code = 3377) oAQAzy3yrHTCwzOHtQqNfGo NcZnRuYmpcdWMxXGRlZmYwe 1bue093jQJkz5ffCZLaPsI2 uATuVICejZBxC045d3fer3u zicNbeRS6KXLgYOL9CHwvae FxgxF3EYivcTHqStZ0YWaty iYzSMhodoOtavEpEhv4IEPn J470SZH1mTjmh3qaFXO2VQP uFVGxQiUlTx5msEWkS556HB AhNYMBLUFrbDs6ZODrjqBhg nVykPWKa442Y985t2itMZCc hiEzzRiQbivqm2ulY553BOB hcGVydzEyMjQwXHBhcGVyaD H4AGRqBK7guzduEpCyCV8ir dphUsLmGJ1pyhx0QvVzYC4g cmdiNzIwXGhlYWRlcnkwXGZ pt5NsetflNP5dR0Crh3J5nV 9maXRcZGVmdGFiNzIwXGZvc h2lnGWqTQpup9CtHAV7vvZ6 vPNbkSOtODXjWF94Fdfhn1G wJuhxFAH8LYItzqYqu0Bgh4 thTvWfqzHfW8suF9ZnTYFpW BFqPLKtPtOunvCfp2Vhb0Ai yVRpuHb7w4maXPAcGLHizPf fn9xrZEU1EOUrG2S9qCJhd8 ebBIhtUZGmcDS4qwrdAEkqY CGkvoV7asfyCEqfTQMgyEE2 qfmdHYviFNLhOeH8okkwBTi eLINoXIG2PClfl894XNL2GC xzYmtwYWdlXHBnbmNvbnRcc GduZGVjXHBsYWluXHBsYWlu XGYwXGZzMjRccWxccGxhaW5 pHnOzUnUfROmbWB3aCRCrL8 ricXTuALVbKCMeH9eiGyPuw Q4atNnaHUkmtmIiTAoilNir bGFkZGVyIFxwYXJ9 GROSS DESCRIPTION i2flaCPaRFEnwCQfOqWoKTH (test code = 3366) kWMOkm6caIBVcuEUdUqYsFo NcZnRuYmpcdWMxXGRlZmYwe 4snl965sYBxl9fhYVRuKtV6 lNTyEHSgzBUlP464RPBuIKl ec9eam3AdYDDmtEDul7K1SW LLatoosHd4bUiaC61bp1E1H rrkX2spQWLwNVvrIWJmZLcb oRLiNLP9BNHpGWP6HAycndC novC2IXfcdYMxIdB0UDk7a8 hphPzlKJTgGWN0n5cfTZzwx nMgEA5doc9reYo9u1tukkJh GPCbSFEzeNCBILKtM5XjxOu aXy5jqTi7uCisTpudJFG2Cd z3WB2qqz33kee2ePcvOIHnl vibScU7QPqaLAVjckpzLGz6 MFxtYXJnbDcyMFxtYXJncjc yMFxtYXJndDcyMFxtYXJnYj wgBSrmDNUkJED2UXjsm914L VJ8WHhgh0whs3katWSgWqu4 AKRxDcXzYjeoLBpok7Aua2m qSQWteq8bQTU4kCTlfLefp1 W6bJCoFQWdzPKtcuIwSPYvE bT7MNwaUS0dns10MQDwWQH1 ui6weBWwzWlttxJgcMQvUPu tS0EoJDInp747BOVnX5NwEW Ojr5Q5hpLbQbVjFRUeeHH2n pX5LEMiPGo7iDBznrK7sqRg uDZhH9lfpJ61HdTtmQLvW9E opR30FlYxbAEuL2JaqM74Zn BumATyB8RzzY75CeJjmGYeL NDsqPRbKl2heVNmlHOrf5Bx tNMqWWkeA73ap026EJSdalL jN3uzkSLeuobadPQherlsNK xmczIwXHFsXHBsYWluXGYwX WYuNrLhoZhgnA3eYaLrGnNe IPHTPQUoqYOzXIMznhRbk5R tYWxpbiBsYWJlbGVkIHdpdG ggdGhlIHBhdGllbnQncyBuY M6tJYAvK1Vfk3Bzp46hogDg JrPkYYDrEUZqE9TfdWYcPNJ kZXIiIGlzIGFuIDExLjAgeC KwBwBbyJDjPpJtR08njZ82X RF8PAtxuSduxMVmQJZcAYtf vYpgWMWvRuVkK30jgA7ynNR tO2CfNGdiDS9fDMIuZOpfHR MlBO1wlXRuFGT6pHXxjPLmS ZB9c6NdUjLncTO2LyFWmIJf u9Tfb0UmUVbpHVyjxIjlds7 uzQ3dFWValZ6jxNjtZN8xAI o9pTRgAD7eUl7mCMvtTNZyX ZPziTSvNWfkYL3gWY1kMNA2 ugNwSWSjYViqUSIkpk80tX9 haOMjtIAaYF0vGT5bQQzznZ xvdyBiaWxlLiBDYWxjdWxpI YNrRAKpx0UcnWXhgaNfCpnb JF6nHMnyQT65Y95jZGVvgxH 3FP5erPywaqEynhVcpNOpMm LuoDnzoNLnJfHYgUEky6Tta PZsOXRtlFGmycJqOjBbW10f wOqaY8npAFNbiDUav1TjhBR 7uTTdOOJsB3Lbw49zAIWqMS FktJXxcTP8KKKxdI1sWSEdG KOvEZjtjKxreHhlBOipt0Yz IOV2x7UlAuOpbHG3RA6jiec uzxVqyqHBPI1tRDRTB3GyXX xwYXJ9 MICROSCOPIC e2dseWJjYMBhoSZlQrTvWWZ DESCRIPTION (test code oKNNpg6luMONyjMSdXrEnCc = 3378) NcZnRuYmpcdWMxXGRlZmYwe 5hya905zJVkq3bgGGBcGpN3 sAJyTUYauVOoJ963r3tkq3t fqsWodLP8JDMaGDD1YNlbis KvbwF7MUwxfBZuWgS3JJxlc wGzAGlxvpAqtsGqSxg9TSVn X625ONR5eIwew7skUMR3WJV rOKLdJaUdVu0uhKUmH582WD AsRXTJTVVcySp3XQNqmmIkg sAtcMPQk256K970y3yeJBFt ehZclBfMwlsek3wdL864VYI hcGVydzEyMjQwXHBhcGVyaD M5BJDuOD8dngabWiWcSD0nc hzeNzUmVR8hcrr8FsHhRE5w cmdiNzIwXGhlYWRlcnkwXGZ xu8BuyofuEL8qC3Ivj1H4bH 9maXRcZGVmdGFiNzIwXGZvc i2kvPIrBUltd4KtASO2pzB9 aKKbhOUgPNKqEK30Skbqo2Z lXftkPTL0IZThtmLkd7Cvk9 eiJeUqmnDeS3cgO1FuUWUnA REqUPMqUgCkaaPmv7Hxa8Hb jAEbtWu2a3hdAGWhGDTuoDx qq6eyFHC6CBNlJ3T5kRIbx0 elEYbuTBXeuDO2zumrVSjmB AKisuI0tozmVQocSXFnkIB5 pxirGCohYBVdVeA9hqnbPWz yYVFnSVX2LTvor930KCJ7YI xzYmtwYWdlXHBnbmNvbnRcc GduZGVjXHBsYWluXHBsYWlu XGYwXGZzMjRccWxccGxhaW5 pAxKdTiMsFDalTM4rTPQgZ0 qxnHCgXECdHNKhS1npSjHta J9ifSqbHErrceUxYIRdyxQb yk1zJH9odKGshE== Gross assessment was [facility]'s performed at ([facility], code = 2777) Department of Pathology, [address] [place] [address], Professional component [facility]. [place]'s was performed at ([facility], code = 2779) Department of Pathology, [address] [place] [address], [facility] Center[facility] [id number] 15:29:00Surgical Pathology Report Case: [id number] Authorizing Provider: Rosa Forte MD Collected: 03/05/2020 08:32 AM Ordering Location: [facility] Received: 03/05/2020 10:12 AM SERVICES Pathologist: Inocencio Carballo MD Specimen: Gallbladder A. GALLBLADDER, CHOLECYSTECTOMY:- CHRONIC CHOLECYSTITIS Signing Pathologist Direct Phone Line: [phone] signed by Inocencio Carballo MD on 03/08/2020 at 3:29 [id number] diagnosis: Other chronic p ancreatitis Gallbladder Received [...] trabeculated. The wall measures 0.2 cm thick. Electoral Officer sections are submitted in A1-A2, with the inked cystic duct margin in A1. PA/pl Performed.[facility], Department of Pathology, [address] [place] [address], [facility] [place] [place], [address] [place] [address], SCFERTMAKYSHB [id number] 13:48:00Unlisted Reason for Exam - Click Yes and Enter Reason Below->NoFINAL REPORT PROCEDURE: HEPATOBILIARY SCAN CPT CODE: 87947 INDICATION: Perforation, bile duct PROTOCOL: 5.4 mCi [...] MDReport Verified Date/Time: 03/08/2020 13:48:03 Reading Location: [address] Reading Room NM hepatobiliary (HIDA) [id number] 13:48:00Interface, External Ris In - 03/08/2020 1:50 PM CDTFINAL REPORT PROCEDURE: HEPATOBILIARY SCAN CPT CODE: 27808 INDICATION: Perforation, bile duct PROTOCOL: 5.4 mCi [...] MDReport Verified Date/Time: 03/08/2020 13:48:03 Reading Location: [address] Reading Room Electronically signedby: DAVID CAAL MD on 03/08/2020 01:48 [facility] [id number] 09:43:00 Test Item Value Reference Range Interpretation [...] S NOT APPLICABLE FOR DIALYSIS PATIEN TS. Refresh Technician ID - ANA MCBC W/PLT COUNT & AUTO [id number] 05:33:00 Test Item Value Reference Range Interpretation [...] 0-1 PERCENT (BEAKER) (test code = 2801) [id number] 13:09:00 Test Item Value Reference Range Interpretation Comments Lipase (test code = >1200 8-78 H 3040-3) RADHA (test code = RADHA) Refresh Technician ID - ANA M Lab Interpretation (test Abnormal code = 72222-3) [facility] CenterLIPASE2020-08-23 13:09:00 Test Item Value Reference Range Interpretation Comments LIPASE (BEAKER) (test code = 749) > U/L 8-78 H Refresh Technician ID - ANA MHEPATIC FUNCTION [id number] 13:00:00 Test Item Value Reference Range Interpretation [...] code = 99 U/L 6-55 H 347) Refresh Technician ID - ANA MBASIC METABOLIC [id number] 05:14:00 Test Item Value Reference Range Interpretation [...] S NOT APPLICABLE FOR DIALYSIS PATIEN TS. Refresh Technician ID - EDASICBC W/PLT COUNT & AUTO [id number] 04:48:00 Test Item Value Reference Range Interpretation [...] PERCENT (BEAKER) (test code = 2801) CT, [id number] 02:14:00Unlisted Reason for Exam - Click Yes [...] Dayana Garces MDReport Verified Date/Time: 03/07/2020 02:14:11 [facility] [place]pelvis with IV [id number] 02:14:00Interface, External Ris In - 03/07/2020 2:17 [...] MDReport Verified D ate/Time: 03/07/2020 02:14:11 02:14 [facility] METABOLIC [id number] 06:22:00 Test Item Value Reference Range Interpretation [...] S NOT APPLICABLE FOR DIALYSIS PATIEN TS. Refresh Technician ID - ANA [facility] METABOLIC [id number] 09:33:00 Test Item Value Reference Range Interpretation [...] S NOT APPLICABLE FOR DIALYSIS PATIEN TS. Refresh Technician ID - PIAYA LBASIC METABOLIC [id number] 06:09:00 Test Item Value Reference Range Interpretation [...] S NOT APPLICABLE FOR DIALYSIS PATIEN TS. Refresh Technician ID - EDASIType and screen, [id number] 15:44:00 Test Item Value Reference Range Interpretation Comments ABO/RH AUTOMATED (BEAKER) (test B POSITIVE code = 2260) Ab Scrn (test code = 890-4) NEGATIVE [facility] METABOLIC [id number] 07:04:00 Test Item Value Reference Range Interpretation [...] S NOT APPLICABLE FOR DIALYSIS PATIEN TS. Refresh Technician ID - NTPCBC W/PLT COUNT & AUTO [id number] 06:47:00 Test Item Value Reference Range Interpretation [...] (BEAKER) (test code = 2801) SARS-COV2/RT-PCR ([facility])2020-03-03 06:45:00 Test Item Value Reference Range Interpretation Comments SARS-COV2/RT-PCR (test Negative Not Detected, Negative, code = 8205069) See external report for linked test SARS-COV-[address] [facility] (test code = 4650526) Negative result for this test determines that [...] a nasopharyngeal swab specimen collected from individuals susp ected of COVID-19 by their healthcare provider.This test [...] 564(g) of the Act.Fact Sheet for Healthcare Providers:https://www.Local Marketersidel.com/sites/default/files/product/documents/Fact_Shee q_RI_Zcvbrvcwh_Fjyp_KMDT-PkT-0.pdfFact Sheet for Healthcare Patients:https://www.Local Marketersidel.com/sites/default/files/product/ documents/Tvom_Pmmky_Pwvdokhu_Kubv_EQRT-FfL-2.pdfPerforming Laboratory:[facility], [place] [address]Hbojsgaolk and adltzfpqfp7790-67-11 15:00:00 Test Item Value Reference Range Interpretation Comments Hemoglobin (test code = 10.8 13.7- 17.5 GM/DL L 786-4) Hematocrit (test code = 32.9 % 40.1-51 L 4544-3) RADHA (test code = RADHA) Refresh Technician ID - 6000 Lab Interpretation (test Abnormal code = 69678-5) [facility] CenterHEMOGLOBIN AND [id number] 15:00:00 Test Item Value Reference Range Interpretation Comments HEMOGLOBIN (BEAKER) (test code = 10.8 GM/DL 13.7-17.5 L 410) HEMATOCRIT (BEAKER) (test code = 32.9 % 40.1-51.0 L 411) Refresh Technician ID - 6000BASIC METABOLIC [id number] 06:43:00 Test Item Value Reference Range Interpretation [...] S NOT APPLICABLE FOR DIALYSIS PATIEN TS. Refresh Technician ID - DBCBC W/PLT COUNT & AUTO [id number] 06:22:00 Test Item Value Reference Range Interpretation [...] (BEAKER) (test code = 2801) BASIC METABOLIC [id number] 06:16:00 Test Item Value Reference Range Interpretation [...] S NOT APPLICABLE FOR DIALYSIS PATIEN TS. Refresh Technician ID - EDASIProthrombin time/[id number] 05:55:00 Test Item Value Reference Range Interpretation [...] valves. Lab Interpretation Abnormal (test code = 95896-2) [facility] CenterPROTHROMBIN TIME/[id number] 05:55:00 Test Item Value Reference Range Interpretation [...] mechanical heart valves.CBC W/PLT COUNT & AUTO [id number] 05:45:00 Test Item Value Reference Range Interpretation [...] (BEAKER) (test code = 2801) SARS-COV2/RT-PCR ([facility])2020-02-29 13:49:00 Test Item Value Reference Range Interpretation Comments SARS-COV2/RT-PCR (test Negative Not Detected, Negative, code = 6259438) See external report for linked test SARS-COV-[address] [facility] (test code = 7002207) Negative result for this test determines that [...] a nasopharyngeal swab specimen collected from individuals susp ected of COVID-19 by their healthcare provider.This test [...] 564(g) of the Act.Fact Sheet for Healthcare Providers:https://www.InPlace/sites/default/files/product/documents/Fact_Maikol juarezi_NW_Eecqznwjf_Afxj_LHZX-BdW-3.pdfFact Sheet for Healthcare Patients:https://www.InPlace/sites/default/files/product/ documents/Gmgo_Adyqg_Wexckqyj_Jxao_THEP-SgS-8.pdfPerforming Laboratory:[facility], [place] [address]IOPRPPL FUNCTION [id number] 07:21:00 Test Item Value Reference Range Interpretation [...] code = 62 U/L 6-55 H 347) Refresh Technician ID - PIAYA LBASIC METABOLIC [id number] 07:21:00 Test Item Value Reference Range Interpretation [...] S NOT APPLICABLE FOR DIALYSIS PATIEN TS. Refresh Technician ID - PIAYA LPROTHROMBIN TIME/CLU2625-01-87 05:48:00 Test Item Value Reference Range Interpretation [...] mechanical heart valves.CBC W/PLT COUNT & AUTO [id number] 05:45:00 Test Item Value Reference Range Interpretation [...] (BEAKER) (test code = 2801) ECG 12 [id number] 18:29:20Interface, External Ris In - 02/28/2020 6:29 PM CDTVentricular Rate 82 BPMAtrial Rate 82 BPMP-R Interval 140 msQRS Duration 94 msQ-T Interval 372 msQTC Calculation(Bazett) 434 msP [place] 44 degreesR [place] 51 degreesT [place] 54 degreesNormal sinus rhythmCannot rule out Anterior infarct , age undeterminedAbnormal ECG21 FEB 2020Old anterior infarct now suspectedConfirmed by MD TONIA, BEL ([id number]) on 02/28/2020 6:29:15 [facility]atoriumUrinalysis w/Uqywjxjycjb8377-91-05 17:57:00 Test Item Value Reference Range Interpretation Comments Color, UA (test code = Light Yellow 5778-6) Clarity, UA (test code Clear = 5767-9) Specific [place], UA 1.011 1.001-1.035 (test code = 5811-5) pH, UA (test code = 6.5 5.0-8.0 5803-2) Protein, UA (test code Negative Negative = 08043-0) Glucose, UA (test code Negative Negative = 365) Ketones, UA (test code Negative Negative = 2514-8) Bilirubin, UA (test Negative Negative code = 70533-9) Blood, UA (test code = Negative Negative 54305-3) Nitrite, UA (test code Negative Negative = 5802-4) Leukocytes, UA (test Negative Negative code = 5799-2) Urobilinogen, UA (test 0.2 mg/dL 0.2-1 code = 70535-5) RBC, UA (test code = 0 /HPF 32371-4) WBC, UA (test code = <1 /HPF 5821-4) Mucus (test code = Many 8247-9) Squam Epithel, UA (test <1 /HPF code = 28125-8) Hyaline Casts, UA (test 3 /LPF code = 15587-8) Specimen Source (test code = 2795) RADHA (test code = RADHA) Refresh Technician ID - [auto]Refresh Technician ID - tech [facility] CenterURINALYSIS W/ [id number] 17:57:00 Test Item Value Reference Range Interpretation [...] = 514) SOURCE(BEAKER) (test code = 2795) Refresh Technician ID - [auto]Refresh Technician ID - techBASIC METABOLIC [id number] 17:36:00 Test Item Value Reference Range Interpretation [...] S NOT APPLICABLE FOR DIALYSIS PATIEN TS. Refresh Technician ID - NTPPROTHROMBIN TIME/[id number] 17:34:00 Test Item Value Reference Range Interpretation [...] INR is2.5-3.5 for patients wiht mechanical heart valves.[id number] 12:36:00 Test Item Value Reference Range Interpretation Comments MAGNESIUM (BEAKER) 2.2 mg/dL 1.6-2.6 Specimen markedly (test code = 627) hemolyzed Refresh Technician ID - DBCT, ZWXHXIK3147-96-00 06:02:00Reason for exam:->abdominal painWhat is the patient's [...] MDReport Verified Date/Time: 02/28/2020 06:02:32 COMPREHENSIVE METABOLIC [id number] 03:44:00 Test Item Value Reference Range Interpretation [...] S NOT APPLICABLE FOR DIALYSIS PATIEN TS. Refresh Technician ID - ILOEGHMA1690-33-55 03:44:00 Test Item Value Reference Range Interpretation Comments LIPASE (BEAKER) (test code = 749) 253 U/L 8-78 H Refresh Technician ID - DBCBC W/PLT COUNT & AUTO [id number] 02:54:00 Test Item Value Reference Range Interpretation [...] (BEAKER) (test code = 2801) MISCELLANEOUS LAB [id number] 12:04:00 Test Item Value Reference Range Interpretation Comments SCAN RESULT (test code = 5898167) mtuwhyudxvbeqmzharp9352-11-33 12:04:00Scan ResultQUEST NON-INTERFACED LABCHI [facility] HospitalMAGNESIUM2020-08-10 05:52:00 Test Item Value Reference Range Interpretation Comments MAGNESIUM (BEAKER) (test code = 1.6 mg/dL 1.6-2.6 627) Refresh Technician ID - DBBASIC METABOLIC [id number] 05:52:00 Test Item Value Reference Range Interpretation [...] S NOT APPLICABLE FOR DIALYSIS PATIEN TS. Refresh Technician ID - DBHEPATIC FUNCTION [id number] 05:52:00 Test Item Value Reference Range Interpretation [...] code = 168 U/L 6-55 H 347) Refresh Technician ID - DBPROTHROMBIN TIME/[id number] 05:36:00 Test Item Value Reference Range Interpretation [...] mechanical heart valves.CBC W/PLT COUNT & AUTO [id number] 05:18:00 Test Item Value Reference Range Interpretation [...] H PERCENT (BEAKER) (test code = 2801) [id number] 06:55:00 Test Item Value Reference Range Interpretation Comments MAGNESIUM (BEAKER) (test code = 1.4 mg/dL 1.6-2.6 L 627) Refresh Technician ID - ANA MHEPATIC FUNCTION [id number] 06:55:00 Test Item Value Reference Range Interpretation [...] code = 130 U/L 6-55 H 347) Refresh Technician ID - ANA MBASIC METABOLIC [id number] 06:55:00 Test Item Value Reference Range Interpretation [...] S NOT APPLICABLE FOR DIALYSIS PATIEN TS. Refresh Technician ID - ANA MCBC W/PLT COUNT & AUTO [id number] 06:02:00 Test Item Value Reference Range Interpretation [...] PERCENT (BEAKER) (test code = 2801) PROTHROMBIN TIME/[id number] 05:52:00 Test Item Value Reference Range Interpretation [...] is2.5-3.5 for patients wiht mechanical heart valves.CORTISOL,60 [id number] 22:25:00 Test Item Value Reference Range Interpretation Comments Cortisol, Baseline 8.8 mcg/dL (test code = 63677-2) Cortisol 30 minute 18.8 mcg/dL (test code = 44168-9) Cortisol, 60 22.6 ug/dL Minute (test code = 53066-2) RADHA (test code = ACTH STIMULATION TEST [...] Policy and Procedure Section on The Source. Refresh Technician ID - RICHIE VIGIL [facility] HospitalCORTISOL,60 [id number] 22:25:00 Test Item Value Reference Range Interpretation [...] Pharmacy Policy and Procedure Section on The Source.Refresh Technician ID - DEEPAGCFERNY,30 [id number] 22:03:00 Test Item Value Reference Range Interpretation Comments Cortisol, Baseline 8.8 mcg/dL (test code = 49223-4) Cortisol, 30 18.8 ug/dL Minute (test code = 03964-6) RADHA (test code = ACTH STIMULATION TEST [...] Policy and Procedure Section on The Source. Refresh Technician AQUILES QUIROZ [facility] HospitalCORTISOL,30 [id number] 22:03:00 Test Item Value Reference Range Interpretation [...] a study by Shellie et al (CORBIN 2000,283(8):5446-45), the ACTH Stimulation Test provides important prognostic [...] Pharmacy Policy and Procedure Section on The Source.Refresh Technician ID - BHAVINISOL,DQWJKTCD7346-19-53 21:04:00 Test Item Value Reference Range Interpretation [...] Policy and Procedure Section on The Source. Refresh Technician ID - ROSIANG [facility] HospitalCORTISOL,[id number] 21:04:00 Test Item Value Reference Range Interpretation [...] a study by Shellie et al (CORBIN 2000,283(8):0945-45), the ACTH Stimulation Test provides important prognostic [...] Pharmacy Policy and Procedure Section on The Source.Refresh Technician ID - Xochitl (So-Shee) [employer] METABOLIC [id number] 18:56:00 Test Item Value Reference Range Interpretation [...] S NOT APPLICABLE FOR DIALYSIS PATIEN TS. Refresh Technician ID - Xochitl (So-Shee) [place] METABOLIC [id number] 11:36:00 Test Item Value Reference Range Interpretation [...] S NOT APPLICABLE FOR DIALYSIS PATIEN TS. Refresh Technician ID - IZCACWIRUISRBMBI9727-56-02 05:35:00 Test Item Value Reference Range Interpretation Comments MAGNESIUM (BEAKER) (test code = 1.7 mg/dL 1.6-2.6 627) Refresh Technician ID - ANA MBASIC METABOLIC [id number] 05:35:00 Test Item Value Reference Range Interpretation [...] S NOT APPLICABLE FOR DIALYSIS PATIEN TS. Refresh Technician ID - ANA EPATIC FUNCTION [id number] 05:35:00 Test Item Value Reference Range Interpretation [...] code = 174 U/L 6-55 H 347) Refresh Technician ID - ANA MTroponin [id number] 05:33:00 Test Item Value Reference Range Interpretation Comments Troponin I (test code = <0.01 0-0.03 94377-7) RADHA (test code = RADHA) Troponin I [...] M Lab Interpretation (test Normal code = 70743-7) [facility] CenterTROPONIN [id number] 05:33:00 Test Item Value Reference Range Interpretation [...] failure, acidosis, acute neurological disease, and persistent tachyarrhythmia.Refresh Technician ID - ANA MPROTHROMBIN TIME/INR 2020-02-21 05:30:00 [...] mechanical heart valves.CBC W/PLT COUNT & AUTO [id number] 05:09:00 Test Item Value Reference Range Interpretation [...] (BEAKER) (test code = 2801) BASIC METABOLIC [id number] 00:49:00 Test Item Value Reference Range Interpretation [...] S NOT APPLICABLE FOR DIALYSIS PATIEN TS. Refresh Technician ID - LAPOC-Glucose xjswi8488-21-05 23:50:00 Test Item Value Reference Range Interpretation Comments POC-Glucose Meter (test 166 mg/dL 70-110 H : TE STED AT [facility] code = 1538) [address] [facility] [place], [address] 30: Refresh Technician/Techni daya ID = [id number] for Clement Begum sa (contract) Lab Interpretation (test Abnormal code = 52918-3) [facility] CenterPOCT-GLUCOSE [id number] 23:50:00 Test Item Value Reference Range Interpretation Comments POC-GLUCOSE METER 166 mg/dL 70-110 H : TESTED A T [facility] 6720 (BEAKER) (test code = [place], 1538) [address]: Refresh Technician/Techni daya ID = [id number] for Geri Salinas (contra ct) TROPONIN [id number] 21:54:00 Test Item Value Reference Range Interpretation [...] failure, acidosis, acute neurological disease, and persistent tachyarrhythmia.Refresh Technician ID - NTPBASIC METABOLIC PANEL 2020-02-20 21:51:00 [...] S NOT APPLICABLE FOR DIALYSIS PATIEN TS. Refresh Technician ID - NTPBASIC METABOLIC [id number] 18:23:00 Test Item Value Reference Range Interpretation [...] S NOT APPLICABLE FOR DIALYSIS PATIEN TS. Refresh Technician ID - VJCXPZVEXWP0766-23-95 17:11:00 Test Item Value Reference Range Interpretation Comments POTASSIUM (BEAKER) (test code = 6.2 meq/L 3.5-5.1 HH 379) Refresh Technician ID - DBHEMOGLOBIN AND [id number] 17:05:00 Test Item Value Reference Range Interpretation Comments HEMOGLOBIN (BEAKER) (test code = 13.7 GM/DL 13.7-17.5 410) HEMATOCRIT (BEAKER) (test code = 42.8 % 40.1-51.0 411) Refresh Technician ID - 6000TISSUE [id number] 16:31:00Surgical Pathology Report Case: [id number] Authorizing Provider: Wojciech Rincon Collected: 02/19/2020 01:22 PM Ordering Location: [address] Received: 02/20/2020 09:53 AM Service Pathologist: Young Moon MD Specimen: Distal Esophagus, distal esophageal ulcer A. DISTAL ESOPHAGUS,ULCER, BIOPSY: - NO PATHOLOGIC DIAGNOSIS Signing Pathologist Direct Phone Line: [phone] signed by Young Moon MD on 02/20/2020 at 4:31 PMThe biopsy shows fragments o f normal squamous mucosa without inflammation, yeast forms, viral inclusions or granulomas.59872Kbuwwnj biliary pancreatitisDistal esophagus Received in formalin labeled with the patient's name, accession number and "distal esophagus" are two prakash-pink tissue fragments measuring up to 0.2 cm in greatest dimension which are filtered and submitted in toto in A1. PA/pl Performed [id number] 10:06:00 Test Item Value Reference Range Interpretation Comments POTASSIUM (BEAKER) (test code = 5.5 meq/L 3.5-5.1 H 379) Refresh Technician ID - BKBNKEAPJHY2014-10-84 06:32:00 Test Item Value Reference Range Interpretation Comments MAGNESIUM (BEAKER) (test code = 1.8 mg/dL 1.6-2.6 627) Refresh Technician ID - EDASIBASIC METABOLIC [id number] 06:32:00 Test Item Value Reference Range Interpretation [...] S NOT APPLICABLE FOR DIALYSIS PATIEN TS. Refresh Technician ID - EDASIHEPATIC FUNCTION [id number] 06:32:00 Test Item Value Reference Range Interpretation [...] code = 141 U/L 6-55 H 347) Refresh Technician ID - EDASICBC W/PLT COUNT & AUTO [id number] 06:13:00 Test Item Value Reference Range Interpretation [...] PERCENT (BEAKER) (test code = 2801) PROTHROMBIN TIME/XYJ0014-03-13 06:07:00 Test Item Value Reference Range Interpretation [...] for patients wiht mechanical heart valves.IGG SUBCLASS-4 [id number] 19:29:00 Test Item Value Reference Range Interpretation Comments Igg 4 (test code = 41 mg/dL 4-86 20190927) RADHA (test code = Performing Lab EZ RADHA) [facility] [address] [place] [address] Katrin Skelton MD, PhD, DAJUAN [facility] CenterMAGNESIUM2020-08-06 05:28:00 Test Item Value Reference Range Interpretation Comments MAGNESIUM (BEAKER) (test code = 1.8 mg/dL 1.6-2.6 627) Refresh Technician ID - EDASIBASIC METABOLIC [id number] 05:28:00 Test Item Value Reference Range Interpretation [...] S NOT APPLICABLE FOR DIALYSIS PATIEN TS. Refresh Technician ID - EDASIHEPATIC FUNCTION [id number] 05:28:00 Test Item Value Reference Range Interpretation [...] code = 97 U/L 6-55 H 347) Refresh Technician ID - EDASIPROTHROMBIN TIME/[id number] 05:04:00 Test Item Value Reference Range Interpretation [...] mechanical heart valves.CBC W/PLT COUNT & AUTO [id number] 04:50:00 Test Item Value Reference Range Interpretation [...] (BEAKER) (test code = 2801) SARS-COV2/RT-PCR ([facility])2020-02-18 11:40:00 Test Item Value Reference Range Interpretation Comments SARS-COV2/RT-PCR (test Negative Not Detected, Negative, code = 2696471) See external report for linked test SARS-COV-[address] [facility] (test code = 3291474) Negative result for this test determines that [...] 564(g) of the Act.Fact Sheet for Healthcare Providers:https://www.InPlace/sites/default/files/product/documents/Fact_Maikol juarezg_ZX_Xtimeebdv_Tzsw_QEUV-IiF-7.pdfFact Sheet for Healthcare Patients:https://www.[employer]Place/sites/default/files/product/ documents/Sjoo_Fayty_Pngrtrui_Jcki_KSYB-OhF-6.pdfPerforming Laboratory:[facility], [place] [address]BAZ W/PLT COUNT & AUTO [id number] 07:00:00 Test Item Value Reference Range Interpretation [...] 0-1 PERCENT (BEAKER) (test code = 2801) [id number] 06:29:00 Test Item Value Reference Range Interpretation Comments MAGNESIUM (BEAKER) 2.0 mg/dL 1.6-2.6 Specimen moderately (test code = 627) hemolyzed Refresh Technician ID - EDASIBASIC METABOLIC [id number] 06:29:00 Test Item Value Reference Range Interpretation [...] S NOT APPLICABLE FOR DIALYSIS PATIEN TS. Refresh Technician ID - EDASIHEPATIC FUNCTION [id number] 06:29:00 Test Item Value Reference Range Interpretation [...] Specimen moderately (test code = 347) hemolyzed Refresh Technician ID - EDASIAnti-Nuclear Antibody (ESMER)2020-02-17 14:56:00 Test Item Value Reference Range Interpretation Comments ESMER (test code = 24290-2) Negative Negative RADHA (test code = RADHA) Test performed by IFA method.Test performed by IFA method. Lab Interpretation (test Normal code = 50847-8) [facility] (ESMER)2020-02-17 14:56:00 Test Item Value Reference Range Interpretation Comments ANTI-NUCLEAR ANTIBODY (ESMER) (BEAKER) Negative Negative (test code = 418) Test performed by IFA method.Test performed by IFA method.Immunoglobulin G (IgG) 2020-02-17 04:43:00 Test Item Value Reference Range Interpretation Comments IgG (test code = 2465-3) 889 mg/dL 540-1822 RADHA (test code = RADHA) Refresh Technician ID - JEFFRY W Lab Interpretation (test Normal code = 53090-0) [facility] CenterIMMUN[facility]GLOBULIN G (IGG)2020-02-17 04:43:00 Test Item Value Reference Range Interpretation Comments IMMUNOGLOBULIN G (IGG) (BEAKER) 889 mg/dL 540-1,822 (test code = 427) Refresh Technician ID - JEFFRY WC-Reactive [id number] 04:30:00 Test Item Value Reference Range Interpretation Comments CRP (test code = 676) 3.31 mg/dL 0-0.5 H RADHA (test code = RADHA) Refresh Technician ID Laura TERAN W Lab Interpretation (test Abnormal code = 39840-1) [facility] 04:30:00 Test Item Value Reference Range Interpretation Comments MAGNESIUM (BEAKER) (test code = 1.7 mg/dL 1.6-2.6 627) Refresh Technician ID Laura TERAN WBASIC METABOLIC [id number] 04:30:00 Test Item Value Reference Range Interpretation [...] S NOT APPLICABLE FOR DIALYSIS PATIEN TS. Refresh Technician ID Laura TERAN WHEPATIC FUNCTION [id number] 04:30:00 Test Item Value Reference Range Interpretation [...] (test code = 30 U/L 6-55 347) Refresh Technician ID - JEFFRY WC-REACTIVE [id number] 04:30:00 Test Item Value Reference Range Interpretation Comments C-REACTIVE PROTEIN (BEAKER) (test 3.31 mg/dL 0.00-0.50 H code = 676) Refresh Technician ID - JEFFRY WCBC W/PLT COUNT & AUTO [id number] 04:14:00 Test Item Value Reference Range Interpretation [...] 0-1 PERCENT (BEAKER) (test code = 2801) [id number] 17:56:00 Test Item Value Reference Range Interpretation Comments MAGNESIUM (BEAKER) (test code = 1.9 mg/dL 1.6-2.6 627) Refresh Technician ID - IDALIA LBASIC METABOLIC [id number] 17:56:00 Test Item Value Reference Range Interpretation [...] S NOT APPLICABLE FOR DIALYSIS PATIEN TS. Refresh Technician ID - IDALIA [id number] 07:06:00 Test Item Value Reference Range Interpretation Comments MAGNESIUM (BEAKER) (test code = 1.6 mg/dL 1.6-2.6 627) Refresh Technician ID - IDALIA LBASIC METABOLIC [id number] 07:06:00 Test Item Value Reference Range Interpretation [...] S NOT APPLICABLE FOR DIALYSIS PATIEN TS. Refresh Technician ID - IDALIA LHEPATIC FUNCTION [id number] 07:06:00 Test Item Value Reference Range Interpretation [...] (test code = 35 U/L 6-55 347) Refresh Technician ID Laura FRIEDMAN LRapid drug screen, [id number] 06:52:00 Test Item Value Reference Range Interpretation Comments Barbiturate Screen Negative Negative (test code = 41408-3) Benzodiazepine Screen Negative Negative (test code = 20643-3) Cocaine (Metab.) Negative Negative Screen (test code = 3397-7) Methadone Screen (test Negative Negative code = 87498-2) Opiate Screen (test Positive Negative A code = 92915-6) Cannabinoid Screen Negative Negative (test code = 32938-9) Amph/Methamph Screen Negative Negative (test code = 17342-7) Phencyclidine Screen Negative Negative (test code = 53415-8) pH, UA (test code = 6.5 5.0-8.0 5803-2) RADHA (test code = RADHA) DRUG CUTOFF CONC.Cocaine 300 ng/mL Cannabinoid 50 ng/mLBenzodiazepine 200 ng/mLBarbiturate 200 ng/mLPhencyclidine 25 ng/mLOpiate 300 ng/mLMethadone 300 ng/mLAmphetamine/ 1000 ng/mL Methamphetamine This assay provides an unconfirmed qualitative test result for the clinical management of patients in emergency situations. Chain of custody not maintained. Some pqsf-ucw-pkxmsup medications, as well as adulterants, may cause inaccurate results. Clinical correlation should be applied. A more comprehensive drug screen or confirmation of a detected drug may be performed upon request.Refresh Technician ID - IDALIA Horn ID - [auto] Lab Interpretation Abnormal (test code = 32552-8) [facility] CenterRAPID DRUG SCREEN, [id number] 06:52:00 Test Item Value Reference Range Interpretation [...] situations. Chain of custody not maintained. Some fywk-fey-uxrqzep medications, as well as adulterants, may cause inaccurate results. Clinical correlation should be applied. A more comprehensivedrug screen or confirmation of a detected drug may be performed upon request.Refresh Technician ID - IDALIA Horn ID - [auto]CBC W/PLT COUNT & AUTO [id number] 06:20:00 Test Item Value Reference Range Interpretation [...] GRANULOCYTES-RELATIVE PERCENT (BEAKER) (test code = 2801) [id number] 20:50:00 Test Item Value Reference Range Interpretation Comments Protime (test code = 14.8 11.9- 14.2 H 5902-2) seconds INR (test code = 1.2 <=5.9 6301-6) PTT (test code = 27.3 22.5- 36.0 45589-2) seconds RADHA (test code = RADHA) Effective 12/11/2018: PT Reference Range ChangeNew: 11.9-14.2 Previous: 11.7-14.7 RECOMMENDED COUMADIN/WARFARIN INR THERAPY RANGESSTANDARD DOSE: 2.0-3.0 Includes: PROPHYLAXIS for venous thrombosis, systemic embolization; TREATMENT for venous thrombosis and/or pulmonary embolus.HIGH RISK: Target INR is 2.5-3.5 for patients wiht mechanical heart valves. Lab Interpretation Abnormal (test code = 19848-0) [facility] CenterPT/[id number] 20:50:00 Test Item Value Reference Range Interpretation [...] is2.5-3.5 for patients wiht mechanical heart valves.CT, [id number] 19:18:00FINAL REPORT TECHNIQUE: CT of the abdomen [...] Coleman Verified Date/Time: 02/15/2020 19:18:09 Reading Location: [address] Body Reading Room [id number] 16:59:00 Test Item Value Reference Range Interpretation Comments LIPASE (BEAKER) (test code = 749) 82 U/L 8-78 H Refresh Technician ID - MATI CCOMPREHENSIVE METABOLIC [id number] 16:59:00 Test Item Value Reference Range Interpretation [...] S NOT APPLICABLE FOR DIALYSIS PATIEN TS. Refresh Technician ID - JUL CCBC W/PLT COUNT & AUTO [id number] 16:43:00 Test Item Value Reference Range Interpretation [...] PERCENT (BEAKER) (test code = 2801) ECG/EKG [id number] 16:36:07Hyacinth Gonzales MD 02/15/2020 5:28 PMECG/EKG InterpretationDate/Time: 02/15/2020 4:38 PMPerformedby: Hyacinth Gonzales MDAuthorized by: Hyacinth Gonzales MD The ECG was interpreted by ED physician.The ECG is interpreted as sinus rhythm. Rate is tachycardic. Heart rate is 148 BPM.ST segments normal. T waves normal.[facility] PROTHROMBIN TIME/[id number] 06:20:00 Test Item Value Reference Range Interpretation Comments PROTIME (BEAKER) (test code = 17.3 seconds 11.9-14.2 H 759) INR (GALEN) (test code = 370) 1.5 <=5.9 Effective 12/11/2018: PT Reference Range ChangeNew: 11.9-14.2 Previous: 11.7- 14.7RECOMMENDED COUMADIN/WARFARIN INR THERAPY RANGESSTANDARD DOSE: 2.0-3.0 Includes: PROPHYLAXIS for venous thrombosis, systemic embolization; TREATMENT for venous thrombosis and/or pulmonary embolus.HIGH RISK: Target INR is2.5-3.5 for patients wiht mechanical heart valves.SARS-COV2/RT-PCR ([facility]) 2020-01-25 16:53:00 Test Item Value Reference Range Interpretation Comments SARS-COV2/RT-PCR (test code = Negative Not Detected, Negative 1549079) SARS-COV-[address] [facility] (test code = 8241573) Negative result for this test determines that [...] 564(g) of the Act.Fact Sheet for Healthcare Providers:https://www.InPlace/sites/default/files/product/documents/Fact_Maikol juarezb_ZI_Viswducfg_Lfeu_ZBCW-KuQ-8.pdfFact Sheet for Healthcare Patients:https://www.InPlace/sites/default/files/product/ documents/Ejip_Shlze_Ojgzzmus_Cuyw_NWAD-SpM-9.pdfPerforming Laboratory:[facility] [place], [place] [address]m[address]el [place], [place] [address]ML, ABDOMEN - PELVIS, PANCREAS [id number] 09:59:00Anesthesia:->NoneFINAL REPORT ABDOMINAL AND PELVIS CT DATED [...] is present. IMPRESSION: Acute pancreatitis. Signed: Carrington Garciaeport Verified Date/Time: 01/25/2020 09:59:37 Reading Location: [address] Consult Reading Room CT abd/pelvis - pancreas [id number] 09:59:00Interface, External Ris In - 01/25/2020 10:01 [...] MDReport Verified Date/Time: 01/25/2020 09:59:37 Reading Location: [address] Ortho Consult [facility]12 05:18:00 Test Item Value Reference Range Interpretation Comments PHOSPHORUS (BEAKER) (test code = 3.1 mg/dL 2.3-4.7 604) Refresh Technician ID - IDALIA [id number] 05:18:00 Test Item Value Reference Range Interpretation Comments MAGNESIUM (BEAKER) (test code = 1.8 mg/dL 1.6-2.6 627) Refresh Technician ID - IDALIA LBASIC METABOLIC [id number] 05:18:00 Test Item Value Reference Range Interpretation [...] S NOT APPLICABLE FOR DIALYSIS PATIEN TS. Refresh Technician ID - PIAYA LHEPATIC FUNCTION [id number] 05:18:00 Test Item Value Reference Range Interpretation [...] (test code = 32 U/L 6-55 347) Refresh Technician ID - PIAYA LCBC W/PLT COUNT & AUTO [id number] 04:42:00 Test Item Value Reference Range Interpretation [...] PERCENT (BEAKER) (test code = 2801) PROTHROMBIN TIME/[id number] 04:35:00 Test Item Value Reference Range Interpretation [...] is2.5-3.5 for patients wiht mechanical heart valves.PROTHROMBIN TIME/[id number] 12:59:00 Test Item Value Reference Range Interpretation [...] INR is2.5-3.5 for patients wiht mechanical heart valves.[id number] 06:39:00 Test Item Value Reference Range Interpretation Comments PHOSPHORUS (BEAKER) (test code = 4.0 mg/dL 2.3-4.7 604) Refresh Technician ID - PIAYA [id number] 06:39:00 Test Item Value Reference Range Interpretation Comments MAGNESIUM (BEAKER) (test code = 1.7 mg/dL 1.6-2.6 627) Refresh Technician ID - PIAYA LBASIC METABOLIC [id number] 06:39:00 Test Item Value Reference Range Interpretation Comments SODIUM (BEAKER) 134 meq/L 136-145 L (test code = 381) POTASSIUM (BEAKER) 3.9 meq/L 3.5-5.1 (test code = 379) CHLORIDE (BEAKER) 100 meq/L 98-107 (test code = 382) CO2 (BEAKER) (test 22 meq/L - code = 355) BLOOD UREA NITROGEN 16 [...] S NOT APPLICABLE FOR DIALYSIS PATIEN TS. Refresh Technician ID - PIAYA LHEPATIC FUNCTION [id number] 06:39:00 Test Item Value Reference Range Interpretation [...] (test code = 28 U/L 6-55 347) Refresh Technician ID - PIAYA LCBC W/PLT COUNT & AUTO [id number] 04:28:00 Test Item Value Reference Range Interpretation [...] 0-1 PERCENT (BEAKER) (test code = 2801) [id number] 20:27:00 Test Item Value Reference Range Interpretation Comments Ethanol Lvl (test code = <10 <=10 mg/dL 5643-2) RADHA (test code = RADHA) Refresh Technician ID - BS Lab Interpretation (test Normal code = 05675-7) [facility] CenterETHANOL2020-07-10 20:27:00 Test Item Value Reference Range Interpretation Comments ETHANOL (BEAKER) (test code = 400) < mg/dL <=10 Refresh Technician ID - BSCBC (Hemogram only)2020-01-23 20:10:00 Test Item Value Reference [...] 450 K/CU MM MPV (test code = 88129-1) 9.3 fL 9.4-12.4 L nRBC (test code = 413) 0 0- 0 /100 WBC Lab Interpretation (test code = Abnormal 78714-1) [facility] (HEMOGRAM ONLY)2020-01-23 20:10:00 Test Item Value Reference [...] 0-0 (BEAKER) (test code = 413) PROTHROMBIN TIME/[id number] 14:19:00 Test Item Value Reference Range Interpretation [...] for patients wiht mechanical heart valves.SARS-COV2/RT-PCR ([facility]) 2020-01-23 12:40:00 Test Item Value Reference Range Interpretation Comments SARS-COV2/RT-PCR (test code = Negative Not Detected, Negative 9222144) SARS-COV-[address] [facility] (test code = 1720554) Negative result for this test determines that [...] 564(g) of the Act.Fact Sheet for Healthcare Providers:https://www.InPlace/sites/default/files/product/documents/Fact_Shee p_EJ_Jmezoqhmy_Lgms_WIWS-ZsE-8.pdfFact Sheet for Healthcare Patients:https://www.InPlace/sites/default/files/product/ documents/Jptz_Eohal_Pwcutvfr_Zotu_QHKD-SjA-1.pdfPerforming Laboratory:[address].[place], [place] [address]QJS (HEMOGRAM ONLY) 2020-01-23 11:10:00 Test Item Value [...] = 413) CBC W/PLT COUNT & AUTO [id number] 07:23:00 Test Item Value Reference Range Interpretation [...] 0-1 PERCENT (BEAKER) (test code = 2801) [id number] 06:24:00 Test Item Value Reference Range Interpretation Comments PHOSPHORUS (BEAKER) (test code = 3.1 mg/dL 2.3-4.7 604) Refresh Technician ID - [id number] 06:24:00 Test Item Value Reference Range Interpretation Comments MAGNESIUM (BEAKER) (test code = 1.5 mg/dL 1.6-2.6 L 627) Refresh Technician ID - BSBASIC METABOLIC [id number] 06:24:00 Test Item Value Reference Range Interpretation [...] S NOT APPLICABLE FOR DIALYSIS PATIEN TS. Refresh Technician ID - BSHEPATIC FUNCTION [id number] 06:24:00 Test Item Value Reference Range Interpretation [...] (test code = 31 U/L 6-55 347) Refresh Technician ID - BSLactic acid, [id number] 06:17:00 Test Item Value Reference Range Interpretation Comments Lactate, Venous (test code = 3.60 mmol/L 0.5-2.2 H 2872) RADHA (test code = RADHA) Refresh Technician ID - LA Lab Interpretation (test Abnormal code = 51114-5) [facility] CenterLACTIC ACID, [id number] 06:17:00 Test Item Value Reference Range Interpretation Comments LACTATE BLOOD VENOUS (2) (BEAKER) 3.60 mmol/L 0.50-2.20 H (test code = 2872) Refresh Technician ID - [id number] 18:47:00 Test Item Value Reference Range Interpretation Comments LIPASE (BEAKER) (test code = 749) 39 U/L 8-78 Refresh Technician ID - BSCOMPREHENSIVE METABOLIC [id number] 18:47:00 Test Item Value Reference Range Interpretation [...] S NOT APPLICABLE FOR DIALYSIS PATIEN TS. Refresh Technician ID - BSPT/[id number] 18:41:00 Test Item Value Reference Range Interpretation [...] mechanical heart valves.CBC W/PLT COUNT & AUTO [id number] 18:33:00 Test Item Value Reference Range Interpretation [...] PERCENT (BEAKER) (test code = 2801) PROTHROMBIN TIME/[id number] 04:53:00 Test Item Value Reference Range Interpretation [...] = No growth in 5 days 6463-4) [facility] CenterBLOOD [id number] 02:00:00 Test Item Value Reference Range Interpretation Comments CULTURE (BEAKER) (test No growth in 5 days code = 1095) BLOOD [id number] 02:00:00 Test Item Value Reference Range Interpretation Comments CULTURE (BEAKER) (test No growth in 5 days code = 1095) BASIC METABOLIC [id number] 06:21:00 Test Item Value Reference Range Interpretation [...] S NOT APPLICABLE FOR DIALYSIS PATIEN TS. Refresh Technician ID - ANA MPROTHROMBIN TIME/[id number] 05:49:00 Test Item Value Reference Range Interpretation [...] valves.While on warfarin.CBC W/PLT COUNT & AUTO [id number] 05:47:00 Test Item Value Reference Range Interpretation [...] PERCENT (BEAKER) (test code = 2801) PROTHROMBIN TIME/[id number] 05:45:00 Test Item Value Reference Range Interpretation [...] is2.5-3.5 for patients wiht mechanical heart valves.POCT-GLUCOSE [id number] 17:45:00 Test Item Value Reference Range Interpretation Comments POC-GLUCOSE METER 96 mg/dL 70-110 : TESTED A T [facility] [address] (BEAKER) (test code = [facility], 1538) [address]: Refresh Technician/Techni daya ID = [id number] for BALBINA KOHLER BASIC METABOLIC [id number] 05:48:00 Test Item Value Reference Range Interpretation [...] S NOT APPLICABLE FOR DIALYSIS PATIEN TS. Refresh Technician ID - ANA MPROTHROMBIN TIME/[id number] 05:25:00 Test Item Value Reference Range Interpretation [...] mechanical heart valves.CBC W/PLT COUNT & AUTO [id number] 05:16:00 Test Item Value Reference Range Interpretation [...] (BEAKER) (test code = 2801) SARS-COV2/RT-PCR ([facility])2019-12-20 20:33:00 Test Item Value Reference Range Interpretation Comments SARS-COV2/RT-PCR (test code = Negative Not Detected, Negative 0821045) SARS-COV-2 PERFORMING LAB [facility] (test code = 8435661) BASIC METABOLIC [id number] 04:43:00 Test Item Value Reference Range Interpretation [...] S NOT APPLICABLE FOR DIALYSIS PATIEN TS. Refresh Technician ID - JEFFRY WPROTHROMBIN TIME/[id number] 04:18:00 Test Item Value Reference Range Interpretation [...] S NOT APPLICABLE FOR DIALYSIS PATIEN TS. Refresh Technician ID - PIAYA LPROTHROMBIN TIME/[id number] 07:03:00 Test Item Value Reference Range Interpretation [...] mechanical heart valves.CBC W/PLT COUNT & AUTO [id number] 06:37:00 Test Item Value Reference Range Interpretation [...] PERCENT (BEAKER) (test code = 2801) POCT-GLUCOSE [id number] 22:24:00 Test Item Value Reference Range Interpretation Comments POC-GLUCOSE METER 145 mg/dL 70-110 H : TESTED A T [facility] [address] (BEAKER) (test code = [place], 1538) [address]: Refresh Technician/Techni daya ID = [id number] for SE ZAVALAMarkKAILYN RAPID DRUG SCREEN, [id number] 11:21:00 Test Item Value Reference Range Interpretation [...] situations. Chain of custody not maintained. Some bdhh-yru-uyfcmek medications, as well as adulterants, may cause inaccurate results. Clinical correlation should be applied. A more comprehensivedrug screen or confirmation of a detected drug may be performed upon request.Refresh Technician ID - [auto]Refresh Technician ID - AAHAMIDUrinalysis with Microscopic If [id number] 11:03:00 Test Item Value Reference Range Interpretation Comments Color, UA (test code = Yellow 5778-6) Clarity, UA (test code = Clear 5767-9) Specific [place], UA (test 1.021 1.001-1.035 code = 5811-5) pH, UA (test code = 6.0 5.0-8.0 5803-2) Protein, UA (test code = Negative Negative 51889-0) Glucose, UA (test code = Negative Negative 365) Ketones, UA (test code = 60 mg/dL Negative A 2514-8) Bilirubin, UA (test code = Negative Negative 84673-3) Blood, UA (test code = Negative Negative 55600-7) Nitrite, UA (test code = Negative Negative 5802-4) Leukocytes, UA (test code Negative Negative = 5799-2) Urobilinogen, UA (test 0.2 mg/dL 0.2-1 code = 48273-9) Specimen Source (test code = 2795) RADHA (test code = RADHA) Refresh Technician ID - [auto] Lab Interpretation (test Abnormal code = 67776-4) [facility] CenterURINALYSIS WITH MICROSCOPIC IF [id number] 11:03:00 Test Item Value Reference Range Interpretation [...] = 463) SOURCE(BEAKER) (test code = 2795) Refresh Technician ID - [auto]TROPONIN [id number] 10:56:00 Test Item Value Reference Range Interpretation [...] failure, acidosis, acute neurological disease, and persistent tachyarrhythmia.Refresh Technician ID - LALACTIC ACID, VENOUS 2019-12-18 10:45:00 Test Item Value Reference Range Interpretation Comments LACTATE BLOOD VENOUS (2) (BEAKER) 0.80 mmol/L 0.50-2.20 (test code = 2872) Refresh Technician ID - LABlood gas, [id number] 07:08:00 Test Item Value Reference Range Interpretation Comments pH, Arterial (test code = 2744-1) 7.46 7.35-7.45 H pCO2, Arterial (test code = 33 35- 45 mmHg L 2018-8) pO2, Arterial (test code = 230 80- 90 mmHg H 2703-7) O2 Sat, Arterial (test code = 99.6 % 96-97 H 2708-6) HCO3, Arterial (test code = 23 mmol/L 21-29 1960-4) Base Excess, Arterial (test code -0.5 mmol/L -2-3 = 1925-7) Patient Temperature (test code = 37.0 C 8310-5) FIO2 (test code = 1819) 21 % Lab Interpretation (test code = Abnormal 72065-9) [facility] CenterBLOOD GAS, [id number] 07:08:00 Test Item Value Reference Range Interpretation [...] (test code = 1819) 21.0 % POCT-GLUCOSE [id number] 07:04:00 Test Item Value Reference Range Interpretation Comments POC-GLUCOSE METER 132 mg/dL 70-110 H : TESTED A T [facility] [address] (BEAKER) (test code = [place], 1538) [address]: Refresh Technician/Techni daya ID = [id number] for [place] POCT-GLUCOSE [id number] 06:34:00 Test Item Value Reference Range Interpretation Comments POC-GLUCOSE METER 69 mg/dL 70-110 L : TESTED A T [facility] [address] (BEAKER) (test code = [place], 1538) [address]: Refresh Technician/Techni daya ID = [id number] for RED GARCIA LACTIC ACID, [id number] 03:18:00 Test Item Value Reference Range Interpretation Comments LACTATE BLOOD VENOUS 5.16 mmol/L 0.50-2.20 HH Specime n slightly (2) (BEAKER) (test hemolyzed code = 2872) Refresh Technician ID - LATROPOGAUDENCION [id number] 03:17:00 Test Item Value Reference Range Interpretation [...] failure, acidosis, acute neurological disease, and persistent tachyarrhythmia.Refresh Technician ID - LAPROTHROMBIN TIME/INR 2019-12-18 03:14:00 Test Item Value Reference Range Interpretation Comments PROTIME (BEAKER) (test code = 48.1 seconds 11.9-14.2 H 759) INR (BEAKER) (test code = 370) 5.4 <=5.9 Effective 12/11/2018: PT Reference Range ChangeNew: 11.9-14.2 Previous: 11.7- 14.7RECOMMENDED COUMADIN/WARFARIN INR THERAPY RANGESSTANDARD DOSE: 2.0-3.0 Includes: PROPHYLAXIS for venous thrombosis, systemic embolization; TREATMENT for venous thrombosis and/or pulmonary embolus.HIGH RISK: Target INR is2.5-3.5 for patients wiht mechanical heart valves.BASIC METABOLIC [id number] 03:09:00 Test Item Value Reference Range Interpretation [...] S NOT APPLICABLE FOR DIALYSIS PATIEN TS. Refresh Technician ID - LACBC W/PLT COUNT & AUTO [id number] 02:56:00 Test Item Value Reference Range Interpretation [...] PERCENT (BEAKER) (test code = 2801) CT, [id number] 22:21:00FINAL REPORT CLINICAL HISTORY: Pancreatitis, patient on [...] MDReport Verified Date/Time: 12/17/2019 22:21:28 LACTIC ACID, [id number] 20:58:00 Test Item Value Reference Range Interpretation Comments LACTATE BLOOD VENOUS 3.98 mmol/L 0.50-2.20 H Specime n slightly (2) (BEAKER) (test hemolyzed code = 2872) Refresh Technician ID - [id number] 20:38:00 Test Item Value Reference Range Interpretation Comments LIPASE (BEAKER) (test code = 749) 40 U/L 8-78 Refresh Technician ID - BSCOMPREHENSIVE METABOLIC [id number] 20:38:00 Test Item Value Reference Range Interpretation [...] S NOT APPLICABLE FOR DIALYSIS PATIEN TS. Refresh Technician ID - BSPT/[id number] 20:33:00 Test Item Value Reference Range Interpretation [...] wiht mechanical heart valves.Occult blood x 1, [id number] 20:26:00 Test Item Value Reference Range Interpretation Comments Occult blood (test code = 2335-8) Positive Negative A Lab Interpretation (test code = Abnormal 63388-7) [facility] CenterOCCULT BLOOD, [id number] 20:26:00 Test Item Value Reference Range Interpretation Comments FECAL OCCULT BLOOD (BEAKER) (test Positive Negative A code = 618) CBC W/PLT COUNT & AUTO [id number] 20:23:00 Test Item Value Reference Range Interpretation [...] PERCENT (BEAKER) (test code = 2801) PROTHROMBIN TIME/[id number] 04:20:00 Test Item Value Reference Range Interpretation [...] for patients wiht mechanical heart valves.BASIC METABOLIC [id number] 04:18:00 Test Item Value Reference Range Interpretation [...] S NOT APPLICABLE FOR DIALYSIS PATIEN TS. Refresh Technician ID - PIAYA LCBC W/PLT COUNT & AUTO [id number] 03:54:00 Test Item Value Reference Range Interpretation [...] (BEAKER) (test code = 2801) BASIC METABOLIC [id number] 07:02:00 Test Item Value Reference Range Interpretation [...] S NOT APPLICABLE FOR DIALYSIS PATIEN TS. Refresh Technician ID - PIAYA LPROTHROMBIN TIME/[id number] 06:44:00 Test Item Value Reference Range Interpretation [...] mechanical heart valves.CBC W/PLT COUNT & AUTO [id number] 06:38:00 Test Item Value Reference Range Interpretation [...] (BEAKER) (test code = 2801) BASIC METABOLIC [id number] 06:12:00 Test Item Value Reference Range Interpretation [...] S NOT APPLICABLE FOR DIALYSIS PATIEN TS. Refresh Technician ID - ANA MPROTHROMBIN TIME/[id number] 05:51:00 Test Item Value Reference Range Interpretation [...] is2.5-3.5 for patients wiht mechanical heart valves.PROTHROMBIN TIME/[id number] 05:51:00 Test Item Value Reference Range Interpretation [...] mechanical heart valves.CBC W/PLT COUNT & AUTO [id number] 05:42:00 Test Item Value Reference Range Interpretation [...] 0-1 PERCENT (BEAKER) (test code = 2801) [id number] 10:46:00 Test Item Value Reference Interpretation Comments Range Aldosterone (test <1 ng/dL Adult Ref erence code = 1817317) Ranges for Aldosterone: Upright 8:00-10 :00 am < or = 28 ng/ dL Upright 4:00-6: 00 pm < or = 21 ng/ dL Supine 8:00-10 :00 am 3-16 ng/dL Th is test was developed a nd its analytical perf ormance characteristics havebeen determ ined by [facility] .It has not been cleare d or approved by FDA . This assay has been validatedpursua nt to the [place] regula tions and is used for clinical purpos es. RADHA (test code = Performing Lab RADHA) EZ [facility] [address] [place] [address] I Nafisa HEATH, PhD, DAJUAN [facility] CenterBASI METABOLIC [id number] 04:27:00 Test Item Value Reference Range Interpretation [...] S NOT APPLICABLE FOR DIALYSIS PATIEN TS. Refresh Technician ID - JEFFRY WPROTHROMBIN TIME/[id number] 04:21:00 Test Item Value Reference Range Interpretation [...] 0-0 (BEAKER) (test code = 413) PROTHROMBIN TIME/[id number] 04:33:00 Test Item Value Reference Range Interpretation [...] for patients wiht mechanical heart valves.BASIC METABOLIC [id number] 04:27:00 Test Item Value Reference Range Interpretation [...] S NOT APPLICABLE FOR DIALYSIS PATIEN TS. Refresh Technician ID - LACBC W/PLT COUNT & AUTO [id number] 04:07:00 Test Item Value Reference Range Interpretation [...] (BEAKER) (test code = 2801) BASIC METABOLIC [id number] 05:37:00 Test Item Value Reference Range Interpretation [...] S NOT APPLICABLE FOR DIALYSIS PATIEN TS. Refresh Technician ID - PIAYA LPROTHROMBIN TIME/[id number] 04:04:00 Test Item Value Reference Range Interpretation [...] WBC 0-0 (BEAKER) (test code = 413) [id number] 18:17:00 Test Item Value Reference Range Interpretation Comments Cortisol, Total (test code = 14.8 ug/dL 3.7-19.4 2755) RADHA (test code = RADHA) Refresh Technician ID - BS Lab Interpretation (test Normal code = 46719-4) [facility] CenterCORTISOL2020-05-12 18:17:00 Test Item Value Reference Range Interpretation Comments CORTISOL, TOTAL (BEAKER) (test 14.8 ug/dL 3.7-19.4 code = 2755) Refresh Technician ID - BSU/S, RENAL, [id number] 14:35:00Reason for exam:->abd pain, hyperkalemiaShould this be [...] Concepcioneport Verified Date/Time: 11/25/2019 14:35:00 Reading Location: [address] Radiology Reading Room US renal [id number] 14:35:00Interface, External Ris In - 11/25/2019 2:37 [...] MDReport Verified Date/Time: 11/25/2019 14:35:00 Reading Location: [address] Radiology Reading Room [facility] Leiden PCR (thrombotic risk)2019-11-25 14:11:00 Test Item Value Reference Interpretation Comments Range Factor V Leiden SEE BELOW RESULT: FACT OR V Mutation (test code LEIDEN ( R506Q) VARIANT = 1312715) NOT DETECTED Interpretation SEE BELOW INTERPRETATIO N: This (test code = individual is n egative 4787327) (normal) for th e Factor V Leiden (R506Q) variant in the Factor V gene. Increas ed risk of thrombophili a can becaused by a v ariety of genetic and non-genetic fac tors not screened fo r bythis assay. Laboratory test ing supervised and results monitored by Martina Ma MD, PhD, FAC, [facility]. MUTATI ON ANALYSIS:The Fa ctor V [...] perf ormance characteristics havebeen determ ined by [facility] .It has not been cleare d or approved by FDA . This assay has been validatedpursua nt to the CLIA regula tions and is used for clinical purpos es. Health care pro viders, please contact your local AbilTo' geneticcounselo r or call [phone] ([phone]) for assistance withinterpretat ion of these results. RADHA (test code = Performing Lab RADHA) EZ [facility] [address] [place] [address] Katrin Skelton MD, PhD, [facility] CenterBeta-2-Glycoprotein I [id number] 12:46:00 Test Item Value Reference Range Interpretation Comments Beta-2 Glycoprotein I <9 < OR = 20 SGU Ab, IgG (test code = 61765-5) RADHA (test code = RADHA) Performing Lab EZ [facility] [address] [place] [address] Katrin Skelton MD, PhD, [facility] CenterBeta-2-Glycoprotein I [id number] 12:46:00 Test Item Value Reference Range Interpretation Comments Beta-2 Glycoprotein I <9 < OR = 20 SMU Ab, IgM (test code = 96207-8) RADHA (test code = RADHA) Performing Lab EZ [facility] [address] [place] [address] Katrin Skelton MD, PhD, [facility] CenterBeta-2-Glycoprotein I [id number] 12:46:00 Test Item Value Reference Interpretation Comments Range Beta-2 <9 < OR = 20 The antiphospho lipid antibody Glycoprotein I BE syndrome (APS ) velma Ab, IgA (test clinical-patho logic code = 17372-5) correlation that includesa clinical event (e.g. thrombosis, pre gnancyloss, thrombocytopeni a) and persistent positiveantipho spholipid antibodies (IgM or IgG TERRY>40 MPL/GPL,IgM or IgG anti-b2GPI antibodies ora lupus anticoagulant). International consensusguidel vamshi for APS suggest waiting at least 12weeks before retesting to confirm antibod ypersistence. [facility]aboraCon[facility] immunologicalcl assification criteria for [facility] lupuserythemato ally (SLE) include testing for isotypeIgA, whi ch has yet to be incorporated into APScriteria. Lo w level antiphospholipi d antibodiesmay s ometimes be detected in the setting ofinfection, dr ug therapy or aging. RADHA (test code Performing Lab = RADHA) EZ [facility] [address] [place] [address] Katrin Skelton MD, PhD, DAJUAN [facility] CenterProthrombin Gene [id number] 11:39:00 Test Item Value Reference Interpretation Comments Range PROTHROMBIN GENE SEE BELOW RESULT: G20 210A ANALYSIS (test code variant not detected = [id number]) Interpretation SEE BELOW INTERPRETATIO N: This (test code = individual is n egative 7696399) (normal) for th e B37908P variant in the Prothrombin/Fac tor II gene. Increased risk of thrombophili a can becaused by a v ariety of genetic and non-genetic fac tors not screened fo r bythis assay. Laboratory test ing supervised and results monitored by Felicia Cai, Ph.D.,D ABMGG, [facility]. 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 This test was devtonyo ped and its analytical performance characteristics havebeen determ ined by [facility] [place] .It has not been cleare d or approved by FDA . This assay has been validatedpursua nt to the [place] regula tions and is used for clinical purpos es. RADHA (test code = Performing Lab RADHA) EZ [facility] [address] [place] [address] I Nafisa HEATH, PhD, DAJUAN [facility] CenterBASI METABOLIC [id number] 05:25:00 Test Item Value Reference Range Interpretation [...] S NOT APPLICABLE FOR DIALYSIS PATIEN TS. Refresh Technician ID - PIAYA LPROTHROMBIN TIME/[id number] 04:14:00 Test Item Value Reference Range Interpretation [...] (test code = 413) JAK2 MUTATION (V617F) [id number] 08:10:00 Test Item Value Reference Interpretation Comments Range CLINICAL NOT GIVEN INDICATION ([facility]) (test code = 1328257) SPECIMEN SOURCE: NOT GIVEN (test code = 1021544) Block/Specimen ID NOT GIVEN (test code = 7330605) JAK2 V617F NOT DETECTED NOT DETECTED Mutation ([facility]) (test code = 8430054) GENE (test code = DNR 1309169) AMINO ACID (test DNR code = 5616420) MUTATIONS/POLYMORP DNR HISMS (test code = 9220771) Mutation Analysis DNR (test code = 9439486) Exons 10,11,13-16 DNR (test code = 3398968) NUCLEOTIDE CHANGE DNR (test code = 1809942) References: (test DNR code = 4528170) INTERPRETATION SEE BELOW A JAK2 V617 F mutation ([facility]) (test code is not de tected. This = 5965157) data was review ed and interpreted by Ortiz Malave, PhD. HCLD(Duglas BB) ASSAY DETAILS SEE BELOW This PCR-based advanced (test code = sequencing john y 3024688) interrogates DN A from leukocytes fort he [...] BCR-ABL1 rearra ngement (test code 9106 5 qm77978C) or mu tational analysis of ELVIRA R (ET/PMF, 74259), JAK2 ex on 12 (PV,13329), MPL (ET/PMF, 01488) or CSF3R (chronic neutrophilic le ukemia, 12621).Residual material from this sampl e may be used except for BCR-ABL1 testing;call la b to add. DNA was aligned to GRCh37(hg19) fo r analysis and transcript [id number] was used as referen ce for JAK2 sequence. For additional info rmation, please refer [email or web address] [email or web address]/ faq/MID418 (This link is b eing provided for informational/e ducational purposes only.) This test was developed a nd its analytical perf ormance characteristics havebeen determined by [facility].It h as not been cleared or approved by FDA. This as say has been validatedp ursuant to the CLIA regula tions and is used for cli nical purposes. RADHA (test code = Performing Lab RADHA) EZ [facility] [address] [place] [address] Katrin Skelton MD, PhD, DAJUAN [facility] CenterBASI METABOLIC [id number] 05:01:00 Test Item Value Reference Range Interpretation [...] S NOT APPLICABLE FOR DIALYSIS PATIEN TS. Refresh Technician ID - ANA MBeta-2 glycoprotein [id number] 05:00:00 Test Item Value Reference Range Interpretation Comments B2 Glcoprotein Ab Refer to individual Profile (test code = B2-Glycoprotein IgG, 5151) IgM and IgA results. [facility] W/PLT COUNT & AUTO [id number] 03:56:00 Test Item Value Reference Range Interpretation [...] (BEAKER) (test code = 2801) BASIC METABOLIC [id number] 15:14:00 Test Item Value Reference Range Interpretation [...] S NOT APPLICABLE FOR DIALYSIS PATIEN TS. Refresh Technician ID - NTPBASIC METABOLIC [id number] 06:54:00 Test Item Value Reference Range Interpretation [...] S NOT APPLICABLE FOR DIALYSIS PATIEN TS. Refresh Technician ID - ANA MCBC (HEMOGRAM ONLY)2019-11-23 06:29:00 Test Item Value Reference [...] (BEAKER) (test code = 413) BASIC METABOLIC [id number] 17:49:00 Test Item Value Reference Range Interpretation [...] S NOT APPLICABLE FOR DIALYSIS PATIEN TS. Refresh Technician ID - DBCOMPREHENSIVE METABOLIC [id number] 08:50:00 Test Item Value Reference Range Interpretation [...] S NOT APPLICABLE FOR DIALYSIS PATIEN TS. Refresh Technician ID - MATI CCBC W/PLT COUNT & AUTO [id number] 05:56:00 Test Item Value Reference Range Interpretation [...] code = 2801) Cardiolipin Antibodies, IgG and [id number] 06:44:00 Test Item Value Reference Range Interpretation Comments Anticardiolipin IgG <1.6 <20.0 GPL (test code = 3181-5) Anticardiolipin IgM 4.1 <20.0 MPL (test code = 3182-3) RADHA (test code = RADHA) Anticardiolipin IgG Result Interpretation: <20.0 GPL Normal>/= 20.0 GPL Positive Anticardiolipin IgM Result Interpretation: <20.0 MPL Normal>/= 20.0 MPL Positive Lab Interpretation Normal (test code = 57158-6) [facility] CenterCARDIOLIPIN ANTIBODIES, IGG AND [id number] 06:44:00 Test Item Value Reference Range Interpretation Comments ANTICARDIOLIPIN IGG ANTIBODY (BEAKER) < GPL <20.0 (test code = 712) ANTICARDIOLIPIN IGM ANTIBODY (BEAKER) 4.1 MPL <20.0 (test code = 713) Anticardiolipin IgG Result Interpretation: <20.0 GPL Normal>/= 20.0 GPL PositiveAnticardiolipin IgM Result Interpretation: <20.0 MPL Normal>/= 20.0 MPL PositiveBASIC METABOLIC [id number] 04:12:00 Test Item Value Reference Range Interpretation [...] S NOT APPLICABLE FOR DIALYSIS PATIEN TS. Refresh Technician ID - JEFFRY WCBC (HEMOGRAM ONLY)2019-11-21 03:52:00 [...] (BEAKER) (test code = 413) BASIC METABOLIC [id number] 04:02:00 Test Item Value Reference Range Interpretation [...] S NOT APPLICABLE FOR DIALYSIS PATIEN TS. Refresh Technician ID - JEFFRY WCBC (HEMOGRAM ONLY)2019-11-20 03:49:00 Test Item Value Reference [...] (BEAKER) (test code = 413) BASIC METABOLIC [id number] 05:07:00 Test Item Value Reference Range Interpretation [...] S NOT APPLICABLE FOR DIALYSIS PATIEN TS. Refresh Technician ID - ANA MCBC (HEMOGRAM ONLY)2019-11-19 04:42:00 [...] (BEAKER) (test code = 413) BASIC METABOLIC [id number] 15:31:00 Test Item Value Reference Range Interpretation [...] S NOT APPLICABLE FOR DIALYSIS PATIEN TS. Refresh Technician ID - BSCOMPREHENSIVE METABOLIC [id number] 04:13:00 Test Item Value Reference Range Interpretation [...] S NOT APPLICABLE FOR DIALYSIS PATIEN TS. Refresh Technician ID - PISAVANNAH LLACTIC ACID, [id number] 04:07:00 Test Item Value Reference Range Interpretation Comments LACTATE BLOOD VENOUS (2) (BEAKER) 0.92 mmol/L 0.50-2.20 (test code = 2872) Refresh Technician ID - IDALIA LCBC W/PLT COUNT & AUTO [id number] 03:41:00 Test Item Value Reference Range Interpretation [...] 0-1 PERCENT (BEAKER) (test code = 2801) [id number] 22:38:00 Test Item Value Reference Range Interpretation Comments Procalcitonin (test code = <0.05 <0.05 ng/mL 98296-7) RADHA (test code = RADHA) SEPSIS RISK (ng/mL)Low: 0.05-0.50Intermedi ate: 0.51-2.00High: >=2.01 Lab Interpretation (test Normal code = 19698-9) [facility] CenterPROCALCITONIN2020-05-04 22:38:00 Test Item Value Reference Range Interpretation Comments PROCALCITONIN (BEAKER) (test code = < ng/mL <0.05 3036) SEPSIS RISK (ng/mL)Low: 0.05-0.50Intermediate: 0.51-2.00High: >=2.01TROPONIN [id number] 22:08:00 Test Item Value Reference Range Interpretation [...] failure, acidosis, acute neurological disease, and persistent tachyarrhythmia.Refresh Technician ID - BSCOMPREHENSIVE METABOLIC [id number] 22:02:00 Test Item Value Reference Range Interpretation [...] S NOT APPLICABLE FOR DIALYSIS PATIEN TS. Refresh Technician ID - BSLACTIC ACID, [id number] 21:53:00 Test Item Value Reference Range Interpretation Comments LACTATE BLOOD VENOUS (2) (BEAKER) 1.05 mmol/L 0.50-2.20 (test code = 2872) Refresh Technician ID - DBCBC W/PLT COUNT & AUTO [id number] 21:45:00 Test Item Value Reference Range Interpretation [...] (BEAKER) (test code = 2801) MR, ABDOMEN, [id number] 10:43:00FINAL REPORT MRI of the abdomen dated [...] MDReport Verified Date/Time: 11/17/2019 10:43:53 Reading Location: [address] Body Reading Room MR abdomen without & with IV [id number] 10:43:00Interface, External Ris In - 11/17/2019 11:26 [...] MDReport Verified Date/Time: 11/17/2019 10:43:53 Reading Location: [facility] B1 C013Y [facility] [id number] 19:44:00 Test Item Value Reference Range Interpretation [...] failure, acidosis, acute neurological disease, and persistent tachyarrhythmia.Refresh Technician ID - [id number] 19:36:00 Test Item Value Reference Range Interpretation Comments ETHANOL (BEAKER) (test code = 400) < mg/dL <=10 Refresh Technician ID - DBTROPONIN [id number] 12:00:00 Test Item Value Reference Range Interpretation [...] failure, acidosis, acute neurological disease, and persistent tachyarrhythmia.Refresh Technician ID - EMERSONPHOSPHORUS 2019-11-14 11:53:00 Test Item Value Reference Range Interpretation Comments PHOSPHORUS (BEAKER) (test code = 3.1 mg/dL 2.3-4.7 604) Refresh Technician ID - [id number] 11:53:00 Test Item Value Reference Range Interpretation Comments MAGNESIUM (BEAKER) (test code = 1.8 mg/dL 1.6-2.6 627) Refresh Technician ID - GIOBASIC METABOLIC [id number] 11:53:00 Test Item Value Reference Range Interpretation [...] S NOT APPLICABLE FOR DIALYSIS PATIEN TS. Refresh Technician ID - GIOHEPATIC FUNCTION [id number] 11:53:00 Test Item Value Reference Range Interpretation [...] (test code = 41 U/L 6-55 347) Refresh Technician ID - [id number] 11:53:00 Test Item Value Reference Range Interpretation Comments LIPASE (BEAKER) (test code = 749) 22 U/L 8-78 Refresh Technician ID - CARLASONPROTHROMBIN TIME/[id number] 11:39:00 Test Item Value Reference Range Interpretation [...] mechanical heart valves.RAD, CHEST, 1 VIEW, NON [id number] 11:35:00Upright chestReason for exam:->ABDOMINAL PAINReason for exam:- [...] MDReport Verified Date/Time: 11/14/2019 11:35:36 Reading Location: [facility] Radiology Reading Room CBC W/PLT COUNT & AUTO [id number] 11:30:00 Test Item Value Reference Range Interpretation [...] PERCENT (BEAKER) (test code = 2801) Renin, [id number] 06:02:00 Test Item Value Reference Range Interpretation Comments PRA,LC/MS/MS 0.35 ng/mL/h 0.25-5.82 This test was developed (test code = and its analyti elvira 5600899) performance characteristics havebeen determined by [facility].It h as not been cleared or approved by FDA. This as say has been validatedp ursuant to the CLIA reg ulations and is used for clinical purposes. RADHA (test Performing Lab code = RADHA) EZ [facility] [address] [place] [address] Katrin Skelton MD, PhD, DAJUAN [facility] METABOLIC [id number] 06:55:00 Test Item Value Reference Range Interpretation [...] S NOT APPLICABLE FOR DIALYSIS PATIEN TS. Refresh Technician ID - PIAYA LCORTISOL,60 [id number] 16:44:00 Test Item Value Reference Range Interpretation [...] a study by Shellie et al (CORBIN 2000,283(8):2793-45), the ACTH Stimulation Test provides important prognostic [...] Pharmacy Policy and Procedure Section on The Source.Refresh Technician ID - MATI CCORTISOL,30 [id number] 16:44:00 Test Item Value Reference Range Interpretation [...] Pharmacy Policy and Procedure Section on The Source.Refresh Technician ID - MATI CCORTISOL,BASELINE 2019-11-09 15:51:00 Test [...] Pharmacy Policy and Procedure Section on The Source.Refresh Technician ID - MATI COperator ID - MATI CBASI METABOLIC [id number] 15:45:00 Test Item Value Reference Range Interpretation [...] S NOT APPLICABLE FOR DIALYSIS PATIEN TS. Refresh Technician ID - MATI CPancreatic elastase, [id number] 19:20:00 Test Item Value Reference Interpretation Comments Range Pancreatic Elastase 140 mcg/g L Adult a nd Pediatric (test code = [place] [address]-4) Pancreatic Elas tase-1: No rmal: >200 mcg/gMo derate Pancreatic Insufficiency: 100-200 mcg/g Severe Pancreatic Insufficiency: <100 mcg/g Elas tase-1 (E-1) assay res ults are expressedin mcg/g, which represent mcg E1/g feces. It is not necessary to in terrupt enzymesubstitut ion therapy. RADHA (test code = Performing Lab RADHA) EZ [facility] [address] [place] [address] Katrin Skelton MD, PhD, DAJUAN Lab Interpretation Abnormal (test code = 53039-6) [facility] CenterTISE [id number] 13:45:00Surgical Pathology Report Case: [id number] Authorizing Provider: Wojciech Rincon Collected: 11/07/2019 11:22 AM Ordering Location: [address] Received: 11/07/2019 02:19 PM Service Pathologist: Inocencio Carballo MD Specimen: Biopsy, Gastric, random gastric bx STOMACH, RANDOM GASTRIC BIOPSY: - ANTRAL AND BODY-TYPE GASTRIC MUCOSA WITH MINIMAL- MILD CHRONIC INACTIVE GASTRITIS - NEGATIVE FOR HELICOBACTER PYLORI LIKE ORGANISMS BY WARTHIN-STARRY STAIN Signing PathologistDirect Phone Line: [phone] signed by Inocencio Carballo MD on 11/08/2019 at 1:45 [id number], [id number] painRandom gastric biopsyReceived in formalin labeled with [...] evaluated Immunohistochemistry technical testing was performed at [facility], Pathology Laboratory where it was developed and [...] qualified to perform high complexity clinical laboratory testing.[facility], Department of Pathology, [address] [place] [address], [facility], Department of Pathology, [address] [place] [address], [facility] [place], [address] [place] [address], [id number] 09:53:00 Test Item Value Reference Range Interpretation Comments CORTISOL, TOTAL (BEAKER) (test code = < ug/dL 3.7-19.4 L 2755) Refresh Technician ID - MATI CBASI METABOLIC [id number] 05:46:00 Test Item Value Reference Range Interpretation [...] S NOT APPLICABLE FOR DIALYSIS PATIEN TS. Refresh Technician ID - ANA MCBC (HEMOGRAM ONLY)2019-11-08 05:15:00 [...] (BEAKER) (test code = 413) HEPATIC FUNCTION [id number] 05:19:00 Test Item Value Reference Range Interpretation [...] (test code = 18 U/L 6-55 347) Refresh Technician AQUILES TERAN WBASIC METABOLIC [id number] 05:19:00 Test Item Value Reference Range Interpretation [...] S NOT APPLICABLE FOR DIALYSIS PATIEN TS. Refresh Technician ID - JEFFRY WCBC (HEMOGRAM ONLY)2019-11-07 04:44:00 [...] WBC 0-0 (BEAKER) (test code = 413) [id number] 20:09:00 Test Item Value Reference Range Interpretation Comments ACTH (test 16 pg/mL 6-50 Reference rang e code = applies only to the ) specimens colle cted between 7am-10a m. RADHA (test code Performing Lab EZ = RADHA) [facility] [address] [place] [address] Katrin Skelton MD, PhD, DAJUAN [facility] METABOLIC [id number] 17:16:00 Test Item Value Reference Range Interpretation [...] S NOT APPLICABLE FOR DIALYSIS PATIEN TS. Refresh Technician ID - BSChloride, random [id number] 12:16:00 Test Item Value Reference Range Interpretation Comments ChlorideUr (test 104 meq/L code = 05717-5) RADHA (test code = Reference Range: No RADHA) NormalsOperator [place] [facility] Center[facility], random [id number] 12:16:00 Test Item Value Reference Range Interpretation Comments Creatinine, Ur 19.6 mg/dL (test code = 2161-8) RADHA (test code = Reference Range: No RADHA) NormalsOperator [place] [facility] CenterPotassium, random [id number] 12:16:00 Test Item Value Reference Range Interpretation Comments Potassium Urine 19.1 meq/L (test code = 2828-2) RADHA (test code = Reference Range: No RADHA) NormalsOperator ID - [facility] Campusodium, random [id number] 12:16:00 Test Item Value Reference Range Interpretation Comments Sodium Urine (test 91 meq/L code = 2955-3) RADHA (test code = Reference Range: No RADHA) NormalsOperator [facility] Southwest[facility] Nitrogen, random [id number] 12:16:00 Test Item Value Reference Range Interpretation Comments Urea Nitrogen, Ur 179 mg/dL (test code = 3095-7) RADHA (test code = Reference Range: No RADHA) NormalsOperator ID - ANA M [facility] CenterCHLORIDE, RANDOM [id number] 12:16:00 Test Item Value Reference Range Interpretation Comments CHLORIDE URINE (BEAKER) (test code 104 meq/L = 682) Reference Range: No NormalsOperator ID - ANA MCREATININE, RANDOM URINE 2019-11-06 12:16:00 Test Item Value Reference Range Interpretation Comments CREATININE URINE (BEAKER) (test 19.6 mg/dL code = 375) Reference Range: No NormalsOperator ID - ANA MPOTASSIUM, RANDOM [id number] 12:16:00 Test Item Value Reference Range Interpretation Comments POTASSIUM URINE (BEAKER) (test 19.1 meq/L code = 195) Reference Range: No NormalsOperator ID - ANA MSODIUM, RANDOM [id number] 12:16:00 Test Item Value Reference Range Interpretation [...] U/L 125-220 RADHA (test code = RADHA) Refresh Technician ID - PIAYA L Lab Interpretation (test Normal code = 12748-1) [facility] (LDH)2019-11-06 05:41:00 Test Item Value Reference Range Interpretation Comments LACTATE DEHYDROGENASE (BEAKER) (test 171 U/L 125-220 code = 635) Refresh Technician ID - PIAYA LBASIC METABOLIC [id number] 05:41:00 Test Item Value Reference Range Interpretation [...] S NOT APPLICABLE FOR DIALYSIS PATIEN TS. Refresh Technician ID - DARINSAVANNAH [id number] 05:30:00 Test Item Value Reference Range Interpretation Comments Haptoglobin (test code = 42 mg/dL 14-258 4542-7) RADHA (test code = RADHA) Refresh Technician ID - ANA M Lab Interpretation (test Normal code = 52404-2) [facility]IN2020-[facility]-23 05:30:00 Test Item Value Reference Range Interpretation Comments HAPTOGLOBIN (BEAKER) (test code = 42 mg/dL 14258 366) Refresh Technician ID - ANA MPotassium-Stat [id number] 12:49:00 Test Item Value Reference Range Interpretation Comments Potassium (test code = 2823-3) 5.5 meq/L 3.6-5.5 Lab Interpretation (test code = Normal 49195-6) [facility]OT[facility]-STAT [id number] 12:49:00 Test Item Value Reference Range Interpretation Comments POTASSIUM (BEAKER) (test code = 5.5 meq/L 3.6-5.5 379) SODIUM, RANDOM [id number] 09:30:00 Test Item Value Reference Range Interpretation Comments SODIUM URINE (BEAKER) (test code = 80 meq/L 243) Reference Range: No NormalsOperator ID - JUL CUREA NITROGEN, RANDOM URINE 2019-11-05 09:30:00 Test Item Value Reference Range Interpretation Comments UREA NITROGEN URINE (BEAKER) (test 107 mg/dL code = 538) Reference Range: No NormalsOperator ID - JUL CCHLORIDE, RANDOM [id number] 09:09:00 Test Item Value Reference Range Interpretation Comments CHLORIDE URINE (BEAKER) (test code = 91 meq/L 682) Reference Range: No NormalsOperator ID - JUL CCREATININE, RANDOM [id number] 09:09:00 Test Item Value Reference Range Interpretation Comments CREATININE URINE (BEAKER) (test 8.2 mg/dL code = 375) Reference Range: No NormalsOperator ID - JUL CPOTASSIUM, RANDOM [id number] 09:09:00 Test Item Value Reference Range Interpretation Comments POTASSIUM URINE (BEAKER) (test 19.5 meq/L code = 195) Reference Range: No NormalsOperator ID - JUL CURINALYSIS WITH MICROSCOPIC IF [id number] 08:55:00 Test Item Value Reference Range Interpretation [...] = 463) SOURCE(BEAKER) (test code = 2795) Refresh Technician ID - [auto]Refresh Technician ID - techOperator ID - techBASIC METABOLIC [...] S NOT APPLICABLE FOR DIALYSIS PATIEN TS. Refresh Technician ID - ANA MPOCT-GLUCOSE [id number] 23:47:00 Test Item Value Reference Range Interpretation Comments POC-GLUCOSE METER 87 mg/dL 70-110 : TESTED A T [facility] 6720 (BEAKER) (test code = [facility], 1538) [address]: Refresh Technician/Techni daya ID = [id number] for Belkys barker Sherinduglas BASIC METABOLIC [id number] 22:04:00 Test Item Value Reference Range Interpretation [...] S NOT APPLICABLE FOR DIALYSIS PATIEN TS. Refresh Technician ID - [id number] 15:28:00 Test Item Value Reference Range Interpretation Comments POTASSIUM (BEAKER) (test code = 6.3 meq/L 3.5-5.1 HH 379) Refresh Technician ID - NTPJAEISOYousif,60 [id number] 14:28:00 Test Item Value Reference Range Interpretation Comments CORTISOL BASELINE No specime n received NETWORKED (BEAKER) (test code = 5600) CORTISOL 30 MINUTE No specim en received NETWORKED (BEAKER) (test code = 0578) CORTISOL, 60 MINUTE 16.5 ug/dL (BEAKER) (test [...] a study by Shellie et al (CORBIN 2000,283(8):9203-45), the ACTH Stimulation Test provides important prognostic [...] Pharmacy Policy and Procedure Section on The Source.Refresh Technician ID - [id number] 11:27:00 Test Item Value Reference Range Interpretation Comments CORTISOL, TOTAL (BEAKER) (test 14.5 ug/dL 3.7-19.4 code = 2755) Refresh Technician ID - IIINQISVHHK5742-00-56 11:26:00 Test Item Value Reference Range Interpretation Comments CORTISOL, TOTAL (BEAKER) (test code 3.7 ug/dL 3.7-19.4 = 2755) Refresh Technician ID - NTPBASIC METABOLIC [id number] 09:34:00 Test Item Value Reference Range Interpretation [...] S NOT APPLICABLE FOR DIALYSIS PATIEN TS. Refresh Technician ID - AAHAMIDPOTASSIUM-STAT [id number] 09:18:00 Test Item Value Reference Range Interpretation Comments POTASSIUM (BEAKER) (test code = 5.6 meq/L 3.6-5.5 H 379) [id number] 06:38:00 Test Item Value Reference Range Interpretation Comments CORTISOL, TOTAL (BEAKER) (test code 2.4 ug/dL 3.7-19.4 L = 2755) Refresh Technician ID - BSBASIC METABOLIC [id number] 06:18:00 Test Item Value Reference Range Interpretation [...] S NOT APPLICABLE FOR DIALYSIS PATIEN TS. Refresh Technician ID - BSPOCT-GLUCOSE [id number] 02:23:00 Test Item Value Reference Range Interpretation Comments POC-GLUCOSE METER 82 mg/dL 70-110 : TESTED A T [facility] 67[facility] (BEAKER) (test code = [place], 1538) [address]: Refresh Technician/Techni daya ID = [id number] for Nina Interiano [id number] 00:42:00 Test Item Value Reference Range Interpretation Comments POTASSIUM (BEAKER) (test code = 7.0 meq/L 3.5-5.1 HH 379) Refresh Technician ID - BSOsmolality, [id number] 18:20:00 Test Item Value Reference Range Interpretation Comments Osmolality, Ur (test code = 427 50-1,200 mOsm/kg mOsm/kg 2695-5) Lab Interpretation (test code Normal = 29417-0) [facility] CenterOSMOLALITY, [id number] 18:20:00 Test Item Value Reference Range Interpretation Comments OSMOLALITY URINE (BEAKER) (test 427 mOsm/kg 50-1,200 mOsm/kg code = 614) URINALYSIS WITH MICROSCOPIC IF [id number] 18:00:00 Test Item Value Reference Range Interpretation [...] = 463) SOURCE(BEAKER) (test code = 2795) Refresh Technician ID - [auto]Refresh Technician ID - techOperator ID - techOsmolality, serum 2019-11-03 17:13:00 Test Item Value Reference Range Interpretation Comments Osmolality Serum (test code = 2692-2) 286 275- 295 mOsm/kg Lab Interpretation (test code = Normal 89089-5) [facility] CenterOSMOLALITY, [id number] 17:13:00 Test Item Value Reference Range Interpretation Comments OSMOLALITY, SERUM (BEAKER) (test 286 mOsm/kg 275-295 code = 615) POTASSIUM-STAT [id number] 12:57:00 Test Item Value Reference Range Interpretation Comments POTASSIUM (BEAKER) (test code = 5.7 meq/L 3.6-5.5 H 379) CHLORIDE, RANDOM [id number] 12:30:00 Test Item Value Reference Range Interpretation Comments CHLORIDE URINE (BEAKER) (test code 150 meq/L = 682) Reference Range: No NormalsOperator ID Laura GARCIA FCREATININE, RANDOM URINE 2019-11-03 12:30:00 Test Item Value Reference Range Interpretation Comments CREATININE URINE (BEAKER) (test 16.5 mg/dL code = 375) Reference Range: No NormalsOperator AQUILES GARCIA FPOTASSIUM, RANDOM URINE 2019-11-03 12:30:00 Test [...] Reference Range: No NormalsOperator ID Laura GARCIA [id number] 11:27:00 Test Item Value Reference Range Interpretation Comments POTASSIUM (BEAKER) (test code = 6.1 meq/L 3.5-5.1 HH 379) Refresh Technician AQUILES GARCIA FLACTIC ACID, [id number] 11:25:00 Test Item Value Reference Range Interpretation Comments LACTATE BLOOD VENOUS (2) (BEAKER) 0.44 mmol/L 0.50-2.20 L (test code = 2872) Refresh Technician AQUILES GARCIA FCreatine Kinase (CK)2019-11-03 10:27:00 Test Item Value Reference Range Interpretation Comments Total CK (test code = 49 U/L 2157-6) RADHA (test code = RADHA) Refresh Technician AQUILES GARCIA F Lab Interpretation (test Normal code = 85521-4) [facility] CenterCREATINE KINASE (CK)2019-11-03 10:27:00 Test Item Value Reference Range Interpretation Comments CREATINE KINASE TOTAL (BEAKER) (test 49 U/L 200 code = 380) Refresh Technician AQUILES GARCIA FBASIC METABOLIC [id number] 07:56:00 Test Item Value Reference Range Interpretation [...] S NOT APPLICABLE FOR DIALYSIS PATIEN TS. Refresh Technician ID - PIAYA LBASIC METABOLIC [id number] 06:19:00 Test Item Value Reference Range Interpretation [...] S NOT APPLICABLE FOR DIALYSIS PATIEN TS. Refresh Technician ID - PIAYA [id number] 06:14:00 Test Item Value Reference Range Interpretation Comments MAGNESIUM (BEAKER) 1.7 mg/dL 1.6-2.6 Specimen slightly (test code = 627) hemolyzed Refresh Technician ID - IDALIA [id number] 06:14:00 Test Item Value Reference Range Interpretation Comments PHOSPHORUS (BEAKER) 4.3 mg/dL 2.3-4.7 Specimen slightly (test code = 604) hemolyzed Refresh Technician ID - IDALIA LCalcium, [id number] 05:26:00 Test Item Value Reference Range Interpretation Comments Calcium, Ion (test code = 1994-3) 1.24 mmol/L 1.12-1.27 pH, Blood (test code = 32682-7) 7.28 [facility] [id number] 05:26:00 Test Item Value Reference Range Interpretation Comments CALCIUM IONIZED (BEAKER) (test 1.24 mmol/L 1.12-1.27 code = 698) PH, BLOOD (BEAKER) (test code = 7.28 1810) CBC W/PLT COUNT & AUTO [id number] 05:20:00 Test Item Value Reference Range Interpretation [...] (BEAKER) (test code = 2801) BASIC METABOLIC [id number] 18:22:00 Test Item Value Reference Range Interpretation [...] S NOT APPLICABLE FOR DIALYSIS PATIEN TS. Refresh Technician ID - MIGUELOCT-GLUCOSE [id number] 15:18:00 Test Item Value Reference Range Interpretation Comments POC-GLUCOSE METER 102 mg/dL 70-110 : TESTED A T [facility] 6720 (BEAKER) (test code [facility], = 1538) [address]: Refresh Technician/Techni daya ID = [id number] for ARLEEN LI BASIC METABOLIC [id number] 13:13:00 Test Item Value Reference Range Interpretation [...] S NOT APPLICABLE FOR DIALYSIS PATIEN TS. Refresh Technician ID - RAJ OMPREHENSIVE METABOLIC [id number] 07:07:00 Test Item Value Reference Range Interpretation [...] S NOT APPLICABLE FOR DIALYSIS PATIEN TS. Refresh Technician ID - IDALIA LCALCIUM, [id number] 06:43:00 Test Item Value Reference Range Interpretation Comments CALCIUM IONIZED (BEAKER) (test 1.22 mmol/L 1.12-1.27 code = 698) PH, BLOOD (BEAKER) (test code = 7.36 1810) [id number] 05:29:00 Test Item Value Reference Range Interpretation Comments MAGNESIUM (BEAKER) 1.7 mg/dL 1.6-2.6 Specimen slightly (test code = 627) hemolyzed Refresh Technician ID - IDALIA [id number] 05:29:00 Test Item Value Reference Range Interpretation Comments PHOSPHORUS (BEAKER) 3.7 mg/dL 2.3-4.7 Specimen slightly (test code = 604) hemolyzed Refresh Technician ID - IDALIA LCBC W/PLT COUNT & AUTO [id number] 04:47:00 Test Item Value Reference Range Interpretation [...] (BEAKER) (test code = 2801) MR, ABDOMEN, [id number] 17:44:00FINAL REPORT TECHNIQUE: MRI of the abdomen [...] MDReport Verified Date/Time: 11/01/2019 17:44:07 Reading Location: [facility] B1 C013Y CT Body Reading Room COMPREHENSIVE METABOLIC [id number] 07:36:00 Test Item Value Reference Range Interpretation [...] S NOT APPLICABLE FOR DIALYSIS PATIEN TS. Refresh Technician ID - LMOperator ID - PIAYA [id number] 07:20:00 Test Item Value Reference Range Interpretation Comments PHOSPHORUS (BEAKER) (test code = 4.4 mg/dL 2.3-4.7 604) Refresh Technician ID - [id number] 07:20:00 Test Item Value Reference Range Interpretation Comments MAGNESIUM (BEAKER) (test code = 1.6 mg/dL 1.6-2.6 627) Refresh Technician ID - LMCALCIUM, [id number] 06:22:00 Test Item Value Reference Range Interpretation Comments CALCIUM IONIZED (BEAKER) (test 1.08 mmol/L 1.12-1.27 L code = 698) PH, BLOOD (BEAKER) (test code = 7.35 1810) CBC W/PLT COUNT & AUTO [id number] 05:59:00 Test Item Value Reference Range Interpretation [...] PERCENT (BEAKER) (test code = 2801) Hemoglobin [id number] 07:50:00 Test Item Value Reference Range Interpretation Comments Hemoglobin A1C (test code = 4548-4) 5.1 % 4.3-6.1 Lab Interpretation (test code = Normal 80878-2) [facility] CenterHEMOGLOBIN [id number] 07:50:00 Test Item Value Reference Range Interpretation Comments HEMOGLOBIN A1C (BEAKER) (test code = 5.1 % 4.3-6.1 368) Vitamin B12 and [id number] 06:41:00 Test Item Value Reference Range Interpretation Comments Vitamin B12 (test code = 518 pg/mL 250-975 4545-9) Folate (test code = 30.00 ng/mL >=7.00 2284-8) RADHA (test code = RADHA) Refresh Technician ID Laura TERAN W Lab Interpretation (test Normal code = 52202-1) [facility] CenterVITAMIN B12 AND [id number] 06:41:00 Test Item Value Reference Range Interpretation Comments VITAMIN B12 (BEAKER) (test code = 518 pg/mL 213-816 774) FOLATE (BEAKER) (test code = 362) 30.00 ng/mL >=7.00 Refresh Technician ID - JEFFRY WCBC W/PLT COUNT & AUTO [id number] 05:40:00 Test Item Value Reference Range Interpretation [...] PERCENT (BEAKER) (test code = 2801) Lipid [id number] 05:18:00 Test Item Value Reference Range Interpretation Comments Triglycerides (test 96 mg/dL code = 2571-8) Cholesterol (test code 158 mg/dL = 2093-3) HDL (test code = 67 mg/dL 2085-9) LDL Calculated (test 72 mg/dL code = 41931-1) RADHA (test code = RADHA) Triglyceride Reference Range: Low Risk <150 Borderline 150-199 High Risk 200-499 Very High Risk >=500 Cholesterol Reference Range: Low Risk <200 Borderline 200-239 High Risk >240 HDL Cholesterol Reference Range: Low Risk >=60 High Risk <40 LDL Cholesterol Reference Range: Optimal <100 Near Optimal 100-129 Borderline 130-159 High 160-189 Very High >=190 Refresh Technician ID - JEFFRY Aguilera [facility] CenterPHOSPHORUS2020-04-17 05:18:00 Test Item Value Reference Range Interpretation Comments PHOSPHORUS (BEAKER) (test code = 3.1 mg/dL 2.3-4.7 604) Refresh Technician ID - JEFFRY [id number] 05:18:00 Test Item Value Reference Range Interpretation Comments MAGNESIUM (BEAKER) (test code = 1.4 mg/dL 1.6-2.6 L 627) Refresh Technician ID - JEFFRY WCOMPREHENSIVE METABOLIC [id number] 05:18:00 Test Item Value Reference Range Interpretation [...] S NOT APPLICABLE FOR DIALYSIS PATIEN TS. Refresh Technician ID - JEFFRY WLIPID [id number] 05:18:00 Test Item Value Reference Range Interpretation [...] Borderline 130-159 High 160-189 Very High >=190 Refresh Technician ID - JEFFRYWLACTIC ACID, [id number] 04:53:00 Test Item Value Reference Range Interpretation Comments LACTATE BLOOD VENOUS (2) (BEAKER) 0.72 mmol/L 0.50-2.20 (test code = 2872) Refresh Technician ID - DBCALCIUM, [id number] 04:49:00 Test Item Value Reference Range Interpretation Comments CALCIUM IONIZED (BEAKER) (test 1.11 mmol/L 1.12-1.27 L code = 698) PH, BLOOD (BEAKER) (test code = 7.46 1810) [id number] 18:04:00 Test Item Value Reference Range Interpretation Comments PROCALCITONIN (BEAKER) (test code = < ng/mL <0.05 3036) SEPSIS RISK (ng/mL)Low: 0.05-0.50Intermediate: 0.51-2.00High: >=2.01LACTIC ACID, [id number] 17:41:00 Test Item Value Reference Range Interpretation Comments LACTATE BLOOD VENOUS (2) (BEAKER) 5.14 mmol/L 0.50-2.20 HH (test code = 2872) Refresh Technician ID - ANA MLACTIC ACID, [id number] 15:19:00 Test Item Value Reference Range Interpretation Comments LACTATE BLOOD VENOUS 6.66 mmol/L 0.50-2.20 HH Specime n slightly (2) (GALEN) (test hemolyzed code = 2872) Refresh Technician ID - ANA LEUNG [id number] 15:14:00 Test Item Value Reference Range Interpretation Comments TROPONIN I (GALEN) (test code = 0.01 ng/mL 0.00-0.03 397) [...] failure, acidosis, acute neurological disease, and persistent tachyarrhythmia.Refresh Technician ID - ANA LEUNG [id number] 14:25:00 Test Item Value Reference Range Interpretation [...] failure, acidosis, acute neurological disease, and persistent tachyarrhythmia.Refresh Technician ID - NTPCT, CTA ABDOMEN 2019-10-30 12:49:00Reason [...] MDReport Verified Date/Time: 10/30/2019 12:49:58 Reading Location: [address] Consult Reading Room CT/CTA abdomen & [id number] 12:49:00 Interface, External Ris In - 10/30/2019 [...] MDReport Verified Date/Time: 10/30/2019 12:49:58 Reading Location: [address] Consult Reading Room [facility]TROPONIN [id number] 10:52:00 Test Item Value Reference Range Interpretation [...] failure, acidosis, acute neurological disease, and persistent tachyarrhythmia.Refresh Technician ID - ANA [id number] 10:46:00 Test Item Value Reference Range Interpretation Comments LIPASE (BEAKER) (test code = 749) 20 U/L 8-78 Refresh Technician ID - ANA MBASIC METABOLIC [id number] 10:46:00 Test Item Value Reference Range Interpretation [...] S NOT APPLICABLE FOR DIALYSIS PATIEN TS. Refresh Technician ID - ANA MHEPATIC FUNCTION [id number] 10:46:00 Test Item Value Reference Range Interpretation [...] Specimen moderately (test code = 347) hemolyzed Refresh Technician ID - ANA MLACTIC ACID, [id number] 10:43:00 Test Item Value Reference Range Interpretation Comments LACTATE BLOOD VENOUS 5.76 mmol/L 0.50-2.20 HH Specime n slightly (2) (BEAKER) (test hemolyzed code = 2872) Refresh Technician ID - ANA MPT/[id number] 10:39:00 Test Item Value Reference Range Interpretation [...] mechanical heart valves.CBC W/PLT COUNT & AUTO [id number] 10:39:00 Test Item Value Reference Range Interpretation [...] (BEAKER) (test code = 2801) BASIC METABOLIC [id number] 05:19:00 Test Item Value Reference Range Interpretation [...] S NOT APPLICABLE FOR DIALYSIS PATIEN TS. Refresh Technician ID - JEFFRY WCBC W/PLT COUNT & AUTO [id number] 05:08:00 Test Item Value Reference Range Interpretation [...] (BEAKER) (test code = 2801) BASIC METABOLIC [id number] 04:26:00 Test Item Value Reference Range Interpretation [...] S NOT APPLICABLE FOR DIALYSIS PATIEN TS. Refresh Technician ID - PIAYA LCBC W/PLT COUNT & AUTO [id number] 04:09:00 Test Item Value Reference Range Interpretation [...] (BEAKER) (test code = 2801) BASIC METABOLIC [id number] 04:12:00 Test Item Value Reference Range Interpretation [...] S NOT APPLICABLE FOR DIALYSIS PATIEN TS. Refresh Technician ID - ANA MCBC W/PLT COUNT & AUTO [id number] 04:04:00 Test Item Value Reference Range Interpretation [...] PERCENT (BEAKER) (test code = 2801) POCT-GLUCOSE [id number] 21:02:00 Test Item Value Reference Range Interpretation Comments POC-GLUCOSE METER 109 mg/dL 70-110 : TESTED A T [facility] 6720 (BEAKER) (test code = [place], 1538) [address]: Refresh Technician/Techni daya ID = [id number] for MARY ELLEN HDEZ RAPID DRUG SCREEN, [id number] 18:44:00 Test Item Value Reference Range Interpretation [...] situations. Chain of custody not maintained. Some gobk-wdt-fcawjci medications, as well as adulterants, may cause inaccurate results. Clinical correlation should be applied. A more comprehensivedrug screen or confirmation of a detected drug may be performed upon request.Refresh Technician ID - BSCT, ABDOMEN 2019-10-21 16:19:00FINAL REPORT [...] MDReport Verified Date/Time: 10/21/2019 16:19:36 Reading Location: [facility] C013Y CT Body ReadingRoom Urinalysis w/Microscopic + Reflex to [id number] 14:45:00 Test Item Value Reference Range Interpretation Comments Color, UA (test code = Colorless 5778-6) Clarity, UA (test code Clear = 5767-9) Specific [place], UA 1.008 1.001-1.035 (test code = 5811-5) pH, UA (test code = 6.0 5.0-8.0 5803-2) Protein, UA (test code Negative Negative = 26372-6) Glucose, UA (test code Negative Negative = 365) Ketones, UA (test code Negative Negative = 2514-8) Bilirubin, UA (test Negative Negative code = 70291-1) Blood, UA (test code = Negative Negative 25887-8) Nitrite, UA (test code Negative Negative = 5802-4) Leukocytes, UA (test Negative Negative code = 5799-2) Urobilinogen, UA (test 0.2 mg/dL 0.2-1 code = 92290-8) RBC, UA (test code = 0 /HPF 46393-6) WBC, UA (test code = 1 /HPF 5821-4) Squam Epithel, UA <1 /HPF (test code = 89544-9) Specimen Source (test code = 2795) RADHA (test code = RADHA) Refresh Technician ID - [auto]Refresh Technician ID - [facility]FLEX URINE [id number] 14:45:00 Test Item Value Reference Range Interpretation [...] = 516) SOURCE(BEAKER) (test code = 2795) Refresh Technician ID - [auto]Refresh Technician ID - [id number] 14:31:00 Test Item Value Reference Range Interpretation Comments LIPASE (BEAKER) (test code = 749) 20 U/L 8-78 Refresh Technician ID - BSBASIC METABOLIC [id number] 14:31:00 Test Item Value Reference Range Interpretation [...] S NOT APPLICABLE FOR DIALYSIS PATIEN TS. Refresh Technician ID - BSHEPATIC FUNCTION [id number] 14:31:00 Test Item Value Reference Range Interpretation [...] (test code = 21 U/L 6-55 347) Refresh Technician ID - BSLACTIC ACID, [id number] 14:24:00 Test Item Value Reference Range Interpretation Comments LACTATE BLOOD VENOUS (2) (BEAKER) 2.36 mmol/L 0.50-2.20 H (test code = 2872) Refresh Technician ID - BSCBC W/PLT COUNT & AUTO [id number] 14:15:00 Test Item Value Reference Range Interpretation [...] (test code = 2801) RAPID DRUG SCREEN, [id number] 14:56:00 Test Item Value Reference Range Interpretation [...] Negative Negative (test code = 608) Per fiberglass tube molder's recommendations, acceptable pH range for urine drug [...] situations. Chain of custody not maintained. Some xwza-wmz-tsarqle medications, as well as adulterants, may cause inaccurate results. Clinicalcorrelation should be applied. A more comprehensive drug screen or confirmation of a detected drug may be performed upon request.[id number] 03:05:00 Test Item Value Reference Range Interpretation Comments LIPASE (BEAKER) (test code = 749) 257 U/L 8-78 H BASIC METABOLIC [id number] 03:05:00 Test Item Value Reference Range Interpretation [...] GFR I S NOT APPLICABLE FOR DIALYSIS PATISHERRY TS. BASIC METABOLIC [id number] 04:41:00 Test Item Value Reference Range Interpretation [...] S NOT APPLICABLE FOR DIALYSIS PATIEN TS. [id number] 04:31:00 Test Item Value Reference Range Interpretation Comments LIPASE (BEAKER) (test code = 749) 334 U/L 8-78 H TROPONIN [id number] 03:00:00 Test Item Value Reference Range Interpretation [...] failure, acidosis, acute neurological disease, and persistent tachyarrhythmia.[id number] 02:54:00 Test Item Value Reference Range Interpretation Comments MAGNESIUM (BEAKER) 1.9 mg/dL 1.6-2.6 Specimen slightly (test code = 627) hemolyzed BASIC METABOLIC [id number] 02:54:00 Test Item Value Reference Range Interpretation [...] S NOT APPLICABLE FOR DIALYSIS PATIEN TS. [id number] 02:54:00 Test Item Value Reference Range Interpretation Comments LIPASE (BEAKER) (test code = 749) 755 U/L 8-78 H CBC W/PLT COUNT & AUTO [id number] 02:33:00 Test Item Value Reference Range Interpretation [...] = 2801) RAD, CHEST, 1 VIEW, NON [id number] 02:26:00Reason for exam:->pleuritic chest painShould this be [...] To Christy MDReport Verified Date/Time: 03/22/2019 02:26:18 [id number] 08:35:00 Test Item Value Reference Range Interpretation Comments MAGNESIUM (BEAKER) 1.4 mg/dL 1.6-2.6 L Specimen slightly (test code = 627) hemolyzed BASIC METABOLIC [id number] 08:35:00 Test Item Value Reference Range Interpretation [...] APPLICABLE FOR DIALYSIS PATIEN TS. HEPATIC FUNCTION [id number] 08:35:00 Test Item Value Reference Range Interpretation [...] Specimen slightly (test code = 347) hemolyzed [id number] 08:35:00 Test Item Value Reference Range Interpretation Comments LIPASE (BEAKER) (test code = 749) 242 U/L 8-78 H CBC W/PLT COUNT & AUTO [id number] 06:25:00 Test Item Value Reference Range Interpretation [...] 0-1 PERCENT (BEAKER) (test code = 2801) [id number] 07:42:00 Test Item Value Reference Range Interpretation Comments MAGNESIUM (BEAKER) (test code = 1.5 mg/dL 1.6-2.6 L 627) BASIC METABOLIC [id number] 07:42:00 Test Item Value Reference Range Interpretation [...] NOT APPLICABLE FOR DIALYSIS PATIEN TS. LIPID [id number] 07:42:00 Test Item Value Reference Range Interpretation [...] 130-159 High 160-189 Very High >=190HEPATIC FUNCTION [id number] 07:42:00 Test Item Value Reference Range Interpretation [...] 6-55 347) CBC W/PLT COUNT & AUTO [id number] 05:47:00 Test Item Value Reference Range Interpretation [...] (BEAKER) (test code = 2801) BASIC METABOLIC [id number] 23:23:00 Test Item Value Reference Range Interpretation [...] APPLICABLE FOR DIALYSIS PATIEN TS. HEPATIC FUNCTION [id number] 23:23:00 Test Item Value Reference Range Interpretation [...] (test code = 24 U/L 6-55 347) [id number] 22:57:00 Test Item Value Reference Range Interpretation Comments LIPASE (BEAKER) (test code = 749) 957 U/L 8-78 H [id number] 22:57:00 Test Item Value Reference Range Interpretation Comments AMYLASE (BEAKER) (test code = 349) 391 U/L 25-125 H [id number] 22:56:00 Test Item Value Reference Range Interpretation [...] mechanical heart valves.CBC W/PLT COUNT & AUTO [id number] 22:41:00 Test Item Value Reference Range Interpretation [...] (BEAKER) (test code = 2801) COMPREHENSIVE METABOLIC [id number] 06:44:00 Test Item Value Reference Range Interpretation [...] PATIEN TS. CBC W/PLT COUNT & AUTO [id number] 06:09:00 Test Item Value Reference Range Interpretation [...] (BEAKER) (test code = 2801) COMPREHENSIVE METABOLIC [id number] 07:17:00 Test Item Value Reference Range Interpretation [...] PATIEN TS. CBC W/PLT COUNT & AUTO [id number] 06:05:00 Test Item Value Reference Range Interpretation [...] 0-1 PERCENT (BEAKER) (test code = 2801) [id number] 07:51:00 Test Item Value Reference Range Interpretation Comments MAGNESIUM (BEAKER) (test code = 1.7 mg/dL 1.6-2.6 627) COMPREHENSIVE METABOLIC [id number] 06:19:00 Test Item Value Reference Range Interpretation [...] PATIEN TS. CBC W/PLT COUNT & AUTO [id number] 05:15:00 Test Item Value Reference Range Interpretation [...] (BEAKER) (test code = 2801) COMPREHENSIVE METABOLIC [id number] 09:35:00 Test Item Value Reference Range Interpretation [...] S NOT APPLICABLE FOR DIALYSIS PATIEN TS. [id number] 09:27:00 Test Item Value Reference Range Interpretation Comments MAGNESIUM (BEAKER) 1.3 mg/dL 1.6-2.6 L Specimen slightly (test code = 627) hemolyzed CBC W/PLT COUNT & AUTO [id number] 09:04:00 Test Item Value Reference Range Interpretation [...] (BEAKER) (test code = 2801) COMPREHENSIVE METABOLIC [id number] 05:26:00 Test Item Value Reference Range Interpretation [...] NOT APPLICABLE FOR DIALYSIS PATIEN TS. PROTHROMBIN [id number] 05:08:00 Test Item Value Reference Range Interpretation [...] mechanical heart valves.CBC W/PLT COUNT & AUTO [id number] 04:59:00 Test Item Value Reference Range Interpretation [...] PERCENT (BEAKER) (test code = 2801) POCT-GLUCOSE [id number] 07:44:00 Test Item Value Reference Range Interpretation Comments POC-GLUCOSE METER 90 mg/dL 70-[address] [facility] 6720 (BEAKER) (test code = [place] [address] 8206) COMPREHENSIVE METABOLIC [id number] 07:29:00 Test Item Value Reference Range Interpretation [...] S NOT APPLICABLE FOR DIALYSIS PATIEN TS. [id number] 07:28:00 Test Item Value Reference Range Interpretation Comments PHOSPHORUS (BEAKER) (test code = 2.4 mg/dL 2.3-4.7 604) [id number] 07:28:00 Test Item Value Reference Range Interpretation Comments MAGNESIUM (BEAKER) (test code = 1.8 mg/dL 1.6-2.6 627) HEPATIC FUNCTION [id number] 07:28:00 Test Item Value Reference Range Interpretation [...] (test code = 53 U/L 6-55 347) [id number] 07:28:00 Test Item Value Reference Range Interpretation Comments LIPASE (BEAKER) (test code = 749) 231 U/L 8-78 H CBC W/PLT COUNT & AUTO [id number] 07:10:00 Test Item Value Reference Range Interpretation [...] (BEAKER) (test code = 2801) COMPREHENSIVE METABOLIC [id number] 04:23:00 Test Item Value Reference Range Interpretation [...] S NOT APPLICABLE FOR DIALYSIS PATIEN TS. [id number] 04:21:00 Test Item Value Reference Range Interpretation Comments PHOSPHORUS (BEAKER) (test code = 2.0 mg/dL 2.3-4.7 L 604) [id number] 04:21:00 Test Item Value Reference Range Interpretation Comments MAGNESIUM (BEAKER) (test code = 1.5 mg/dL 1.6-2.6 L 627) HEPATIC FUNCTION [id number] 04:21:00 Test Item Value Reference Range Interpretation [...] (test code = 52 U/L 6-55 347) [id number] 04:21:00 Test Item Value Reference Range Interpretation Comments LIPASE (BEAKER) (test code = 749) 283 U/L 8-78 H CBC W/PLT COUNT & AUTO [id number] 04:19:00 Test Item Value Reference Range Interpretation [...] (BEAKER) (test code = 2801) HEMOGLOBIN AND [id number] 03:57:00 Test Item Value Reference Range Interpretation Comments HEMOGLOBIN (BEAKER) (test code = 9.4 GM/DL 13.7-17.5 L 410) HEMATOCRIT (BEAKER) (test code = 28.9 % 40.1-51.0 L 411) HEMOGLOBIN AND [id number] 11:59:00 Test Item Value Reference Range Interpretation Comments HEMOGLOBIN (BEAKER) (test code = 8.4 GM/DL 13.7-17.5 L 410) HEMATOCRIT (BEAKER) (test code = 24.7 % 40.1-51.0 L 411) [id number] 09:15:00 Test Item Value Reference Range Interpretation Comments LIPASE (BEAKER) (test code = 749) 214 U/L 8-78 H HEPATIC FUNCTION [id number] 06:09:00 Test Item Value Reference Range Interpretation [...] (BEAKER) (test code = 413) BASIC METABOLIC [id number] 02:50:00 Test Item Value Reference Range Interpretation [...] S NOT APPLICABLE FOR DIALYSIS PATIEN TS. [id number] 02:14:00 Test Item Value Reference Range Interpretation Comments PHOSPHORUS (BEAKER) (test code = 2.6 mg/dL 2.3-4.7 604) [id number] 02:14:00 Test Item Value Reference Range Interpretation Comments MAGNESIUM (BEAKER) (test code = 1.9 mg/dL 1.6-2.6 627) HEMOGLOBIN AND [id number] 01:13:00 Test Item Value Reference Range Interpretation Comments HEMOGLOBIN (BEAKER) (test code = 8.1 GM/DL 13.7-17.5 L 410) HEMATOCRIT (BEAKER) (test code = 23.8 % 40.1-51.0 L 411) POCT-GLUCOSE [id number] 20:56:00 Test Item Value Reference Range Interpretation Comments POC-GLUCOSE METER 105 mg/dL 70-[address] [facility] 6720 (BEAKER) (test code = [place]NY [place] 1538) [address] COMPREHENSIVE METABOLIC [id number] 14:51:00 Test Item Value Reference Range Interpretation [...] APPLICABLE FOR DIALYSIS PATIEN TS. Specimen slightly [id number] 14:51:00 Test Item Value Reference Range Interpretation Comments PHOSPHORUS (BEAKER) (test code = 0.9 mg/dL 2.3-4.7 LL 604) [id number] 14:41:00 Test Item Value Reference Range Interpretation Comments MAGNESIUM (BEAKER) (test code = 1.3 mg/dL 1.6-2.6 L 627) [id number] 14:41:00 Test Item Value Reference Range Interpretation Comments AMYLASE (BEAKER) (test code = 349) 160 U/L 25-125 H Specimen slightly ictericLACTATE DEHYDROGENASE (LDH)2019-02-12 14:41:00 Test Item Value Reference Range Interpretation Comments LACTATE DEHYDROGENASE (BEAKER) (test 572 U/L 125-220 H code = 635) [id number] 14:41:00 Test Item Value Reference Range Interpretation Comments LIPASE (BEAKER) (test code = 749) 562 U/L 8-78 H Specimen slightly [id number] 14:39:00 Test Item Value Reference Range Interpretation Comments ETHANOL (BEAKER) (test code = 400) < mg/dL <=10 [id number] 14:27:00 Test Item Value Reference Range Interpretation [...] of thrombosis is within 95-100% range.LACTIC ACID, [id number] 14:25:00 Test Item Value Reference Range Interpretation Comments LACTATE BLOOD VENOUS (2) (BEAKER) 1.5 mmol/L 0.5-2.2 (test code = 2872) [id number] 14:21:00 Test Item Value Reference Range Interpretation Comments AMMONIA (BEAKER) (test code = 348) 50 mol/L 18-72 [id number] 14:17:00 Test Item Value Reference Range Interpretation [...] INR is2.5-3.5 for patients wiht mechanical heart valves.[id number] 14:17:00 Test Item Value Reference Range Interpretation [...] to report due WIDTH (BEAKER) (test to [facility] Platelet code = 412) population distribution. PLATELET COUNT 146 K/CU MM 150-450 L (BEAKER) (test code = 756) MEAN PLATELET VOLUME 10.0 fL 9.4-12.4 (BEAKER) (test code = 754) NUCLEATED RED BLOOD 1 /100 WBC 0-0 H CELLS (BEAKER) (test code = 413) CBC W/PLT COUNT & AUTO [id number] 05:36:00 Test Item Value Reference Range Interpretation [...] (BEAKER) (test code = 2801) MR, ABDOMEN, [id number] 13:31:00FINAL REPORT MRCP, MRI of abdomen without [...] MDReport Verified Date/Time: 12/12/2018 13:31:00 Reading Location: [facility] B1 C013Y CT Body Reading Room COMPREHENSIVE METABOLIC [id number] 09:56:00 Test Item Value Reference Range Interpretation [...] PATIEN TS. CBC W/PLT COUNT & AUTO [id number] 04:42:00 Test Item Value Reference Range Interpretation [...] FL, ESOPH, SWALLOW FUNCTION, WITH CINE OR [id number] 12:02:00Reason for exam:->pneumomediastinum, rule out esophageal perforationFINAL [...] MDReport Verified Date/Time: 12/11/2018 12:02:17 Reading Location: [address] Ortho Consult Reading Room BASI METABOLIC PANEL [...] PATIEN TS. CBC W/PLT COUNT & AUTO [id number] 07:12:00 Test Item Value Reference Range Interpretation [...] = 2801) RAD, CHEST, 1 VIEW, NON [id number] 20:13:00Reason for exam:- >pneumomediastinumShould this be performed [...] MDReport Verified Date/Time: 12/10/2018 20:13:39 Reading Location: [address] Reading Room [id number] 19:12:00 Test Item Value Reference Range Interpretation Comments MAGNESIUM (BEAKER) 1.8 mg/dL 1.6-2.6 Specimen slightly (test code = 627) hemolyzed COMPREHENSIVE METABOLIC [id number] 19:12:00 Test Item Value Reference Range Interpretation [...] FOR DIALYSIS PATIEN TS. Specimen slightly ictericPROTHROMBIN [id number] 18:53:00 Test Item Value Reference Range Interpretation [...] PERCENT (BEAKER) (test code = 2801) BLOOD [id number] 20:01:00 Test Item Value Reference Range Interpretation Comments CULTURE (BEAKER) (test No growth in 5 days code = 1095) BLOOD [id number] 20:01:00 Test Item Value Reference Range Interpretation Comments CULTURE (BEAKER) (test No growth in 5 days code = 1095) RAD, CHEST, 1 VIEW, NON [id number] 13:13:00Reason for exam:->evalute for pneumoniaShould this be performed at the bedside?->YesAddendum BeginsREPORT STATUS:A Addendum:Clinical diagnosis alcohol withdrawal syndrome, electrolyte disturbances, elevated liver function tests, pneumonia, Signed: Marilu Sharpeshan Verified Date/Time: 11/01/2018 13:13:23 Reading Location: [address] Consult Reading RoomAddendum EndsFINAL REPORT Chest [...] opacity. Impression:No active cardiopulmonary disease. Signed: DellMarilu Srini Verified Date/Time: 10/28/2018 15:36:38 Reading Location: [address] Consult Reading Room U/S, ABDOMINAL, WITH [id number] 10:43:00Reason for exam:->evaluate for portal hypertension, cirrhosis, [...] MDReport Verified Date/Time: 10/31/2018 10:43:58 Reading Location: [address] Ultrasound Reading Room COMPREHENSIVE METABOLIC [id number] 06:57:00 Test Item Value Reference Range Interpretation [...] NOT APPLICABLE FOR DIALYSIS PATIEN TS. HEMOGLOBIN [id number] 09:30:00 Test Item Value Reference Range Interpretation Comments HEMOGLOBIN A1C (BEAKER) (test code = 4.9 % 4.3-6.1 368) COMPREHENSIVE METABOLIC [id number] 05:17:00 Test Item Value Reference Range Interpretation [...] PATIEN TS. CBC W/PLT COUNT & AUTO [id number] 04:53:00 Test Item Value Reference Range Interpretation [...] PERCENT (BEAKER) (test code = 2801) LIPID [id number] 17:30:00 Test Item Value Reference Range Interpretation [...] High 160-189 Very High >=190HEPATITIS C PCR, [id number] 14:57:00 Test Item Value Reference Range Interpretation Comments HCV RESULT COMPONENT HCV RNA not detected HCV RNA not detected (BEAKER) (test code = 2699) This test uses a Real-Time Polymerase Chain Reaction (RT-PCR) methodology and was performed using MAR[employer] Ampliprep/MARIANO TaqMan HCV test kit version 2.0 ([employer]).Reportable range for this assay is [...] mass or calcification. Signed:Nancy Concepcion MDReport Verified Date/Time: 10/29/2018 14:17:17 Reading Location: [facility] Radiology Reading Room RPR 2018-10-29 13:28:00 Test Item Value Reference Range Interpretation Comments RPR SCREEN (BEAKER) (test code = Nonreactive Nonreactive 420) [id number] 05:12:00 Test Item Value Reference Range Interpretation Comments PHOSPHORUS (BEAKER) (test code = 2.5 mg/dL 2.3-4.7 604) COMPREHENSIVE METABOLIC [id number] 05:12:00 Test Item Value Reference Range Interpretation [...] NOT APPLICABLE FOR DIALYSIS PATIEN TS. PROTHROMBIN [id number] 04:53:00 Test Item Value Reference Range Interpretation [...] (test code = 2795) VITAMIN B12 AND [id number] 15:08:00 Test Item Value Reference Range Interpretation Comments VITAMIN B12 (BEAKER) (test code = 1678 pg/mL 213-816 H 774) FOLATE (BEAKER) (test code = 362) 19.4 ng/mL >=7.0 [id number] 14:48:00 Test Item Value Reference Range Interpretation [...] (test code = 2590) HEPATITIS B SURFACE [id number] 13:26:00 Test Item Value Reference Range Interpretation Comments HEPATITIS B SURFACE ANTIGEN (2) Nonreactive Nonreactive (BEAKER) (test code = 2585) HEPATITIS C [id number] 13:26:00 Test Item Value Reference Range Interpretation Comments HEPATITIS C ANTIBODY (BEAKER) Nonreactive Nonreactive (test code = 367) HIV-1 ANTIGEN WITH HIV-1/2 [id number] 13:26:00 Test Item Value Reference Range Interpretation Comments HIV-1 ANTIGEN WITH HIV 1\\T\\2 Nonreactive Nonreactive ANTIBODY (2) (BEAKER) (test code = 2586) HEPATITIS B SURFACE [id number] 13:19:00 Test Item Value Reference Range Interpretation Comments HEPATITIS B SURFACE ANTIBODY 34.5 mIU/mL <8.0 H (BEAKER) (test code = 647) HEPATITIS A ANTIBODY, [id number] 13:19:00 Test Item Value Reference Range Interpretation Comments HEPATITIS A IGM ANTIBODY (BEAKER) Nonreactive Nonreactive (test code = 498) HEPATITIS B CORE ANTIBODY, [id number] 13:19:00 Test Item Value Reference Range Interpretation Comments HEPATITIS B CORE TOTAL ANTIBODY Nonreactive Nonreactive (BEAKER) (test code = 497) HEPATITIS A ANTIBODY, [id number] 13:19:00 Test Item Value Reference Range Interpretation Comments HEPATITIS A IGG ANTIBODY (BEAKER) Nonreactive Nonreactive (test code = 2797) PROTHROMBIN [id number] 13:00:00 Test Item Value Reference Range Interpretation Comments PROTIME (BEAKER) (test code = 15.5 seconds 11.7-14.7 H 759) INR (BEAKER) (test code = 370) 1.2 <=5.9 RECOMMENDED COUMADIN/WARFARIN INR THERAPY RANGESSTANDARD DOSE: 2.0 - 3.0 Includes: PROPHYLAXIS forvenous thrombosis, systemic embolization; TREATMENT for venous thrombosis and/or pulmonary embolus.HIGH RISK: Target INR is 2.5-3.5 for patients with mechanical heart valves.[id number] 03:31:00 Test Item Value Reference Range Interpretation Comments PHOSPHORUS (BEAKER) (test code = 3.5 mg/dL 2.3-4.7 604) [id number] 03:31:00 Test Item Value Reference Range Interpretation Comments MAGNESIUM (BEAKER) (test code = 1.5 mg/dL 1.6-2.6 L 627) COMPREHENSIVE METABOLIC [id number] 03:31:00 Test Item Value Reference Range Interpretation [...] PATIEN TS. CBC W/PLT COUNT & AUTO [id number] 03:03:00 Test Item Value Reference Range Interpretation [...] PERCENT (BEAKER) (test code = 2801) POCT-GLUCOSE [id number] 12:15:00 Test Item Value Reference Range Interpretation Comments POC-GLUCOSE METER 99 mg/dL 70-[address] [facility] 6720 (BEAKER) (test code = MIKEGENNY Hernandez [facility] [address] 1538) [id number] 06:15:00 Test Item Value Reference Range Interpretation Comments MAGNESIUM (BEAKER) (test code = 1.8 mg/dL 1.6-2.6 627) COMPREHENSIVE METABOLIC [id number] 06:15:00 Test Item Value Reference Range Interpretation [...] PATIEN TS. CBC W/PLT COUNT & AUTO [id number] 05:30:00 Test Item Value Reference Range Interpretation [...] PERCENT (BEAKER) (test code = 2801) POCT-GLUCOSE [id number] 11:54:00 Test Item Value Reference Range Interpretation Comments POC-GLUCOSE METER 83 mg/dL 70-[address] [facility] 6720 (BEAKER) (test code = [place] [address] 1538) [id number] 05:54:00 Test Item Value Reference Range Interpretation Comments PHOSPHORUS (BEAKER) (test code = 2.3 mg/dL 2.3-4.7 604) [id number] 05:54:00 Test Item Value Reference Range Interpretation Comments MAGNESIUM (BEAKER) (test code = 2.0 mg/dL 1.6-2.6 627) COMPREHENSIVE METABOLIC [id number] 05:54:00 Test Item Value Reference Range Interpretation [...] APPLICABLE FOR DIALYSIS PATIEN TS. LACTIC ACID, [id number] 05:35:00 Test Item Value Reference Range Interpretation Comments LACTATE BLOOD VENOUS (2) (BEAKER) 1.0 mmol/L 0.5-2.2 (test code = 2872) CBC W/PLT COUNT & AUTO [id number] 05:23:00 Test Item Value Reference Range Interpretation [...] PERCENT (BEAKER) (test code = 2801) POCT-GLUCOSE [id number] 18:44:00 Test Item Value Reference Range Interpretation Comments POC-GLUCOSE METER 100 mg/dL 70-[address] [facility] 6720 (BEAKER) (test code = [place] 1538) [address] [id number] 17:58:00 Test Item Value Reference Range Interpretation Comments PHOSPHORUS (BEAKER) (test code = 2.3 mg/dL 2.3-4.7 604) [id number] 17:58:00 Test Item Value Reference Range Interpretation Comments MAGNESIUM (BEAKER) (test code = 1.8 mg/dL 1.6-2.6 627) BASIC METABOLIC [id number] 17:58:00 Test Item Value Reference Range Interpretation [...] S NOT APPLICABLE FOR DIALYSIS PATIEN TS. [id number] 16:55:00 Test Item Value Reference Range Interpretation Comments MAGNESIUM (BEAKER) 1.6 mg/dL 1.6-2.6 Specimen slightly (test code = 627) hemolyzed [id number] 16:55:00 Test Item Value Reference Range Interpretation Comments PHOSPHORUS (BEAKER) 2.3 mg/dL 2.3-4.7 Specimen slightly (test code = 604) hemolyzed BASIC METABOLIC [id number] 16:55:00 Test Item Value Reference Range Interpretation [...] 354) CREATININE (BEAKER) 0.51 mg/dL 0.57-1.25 L Specimen slightly (test code = 358) hemolyzed GLUCOSE RANDOM 99 mg/dL 70-105 (BEAKER) (test code = 652) CALCIUM (BEAKER) 8.0 mg/dL 8.4-10.2 L (test code = 697) EGFR ([facility]) (test 190 mL/min/1.73 ESTIM ATED GFR IS code = 1092) sq m NOT ACCURATE CREATININE CLEARANCE IN PREDICTING GLOMERULAR FILTRATION RATE . ESTIMATED GFR I S NOT APPLICABLE FOR DIALYSIS PATIEN TS. POCT-GLUCOSE [id number] 12:41:00 Test Item Value Reference Range Interpretation Comments POC-GLUCOSE METER 100 mg/dL 70-110 TESTED AT [place] [address] ([facility]) (test code = [facility] David [facility] 1538) [address] POCT-GLUCOSE [id number] 08:07:00 Test Item Value Reference Range Interpretation Comments POC-GLUCOSE METER 99 mg/dL 70-110 TESTED AT [place] [address] ([facility]) (test code = [facility] David [facility] [address] 1538) U/S, ABDOMINAL, [id number] 08:05:00Abdomen limited area? Add comment if clarification [...] secondary to portal hypertension. Signed: Juan Giron MDReport Verified Date/Time: 09/30/2018 08:05:48 Reading Location: [facility] P006J Ultrasound Reading Room [id number] 07:23:00 Test Item Value Reference Range Interpretation Comments PHOSPHORUS (BEAKER) (test code = 1.2 mg/dL 2.3-4.7 LL 604) [id number] 07:11:00 Test Item Value Reference Range Interpretation Comments MAGNESIUM (BEAKER) (test code = 2.3 mg/dL 1.6-2.6 627) COMPREHENSIVE METABOLIC [id number] 07:11:00 Test Item Value Reference Range Interpretation [...] APPLICABLE FOR DIALYSIS PATIEN TS. LACTIC ACID, [id number] 04:07:00 Test Item Value Reference Range Interpretation Comments LACTATE BLOOD VENOUS 0.8 mmol/L 0.5-2.2 Specime n slightly (2) (BEAKER) (test hemolyzed code = 6748) CBC W/PLT COUNT & AUTO [id number] 04:00:00 Test Item Value Reference Range Interpretation [...] 0-1 PERCENT (BEAKER) (test code = 2801) [id number] 01:32:00 Test Item Value Reference Range Interpretation Comments PROCALCITONIN (BEAKER) (test code 0.48 ng/mL <0.05 H = 3036) SEPSIS RISK (ng/mL)Low: 0.05-0.50Intermediate: 0.51-2.00High: >=2.01BASIC METABOLIC [id number] 00:58:00 Test Item Value Reference Range Interpretation [...] S NOT APPLICABLE FOR DIALYSIS PATIEN TS. [id number] 00:57:00 Test Item Value Reference Range Interpretation Comments MAGNESIUM (BEAKER) (test code = 1.5 mg/dL 1.6-2.6 L 627) LACTIC ACID, [id number] 00:37:00 Test Item Value Reference Range Interpretation Comments LACTATE BLOOD VENOUS 0.7 mmol/L 0.5-2.2 Specime n moderately (2) (BEAKER) (test hemolyzed code = 2872) POCT-GLUCOSE [id number] 00:25:00 Test Item Value Reference Range Interpretation Comments POC-GLUCOSE METER 101 mg/dL 70-[address] [facility] 6720 ([facility]) (test code = [place] 1538) [address] POCT-GLUCOSE [id number] 18:32:00 Test Item Value Reference Range Interpretation Comments POC-GLUCOSE METER 76 mg/dL 70-[address] [facility] 6720 ([facility]) (test code = [facility] [address] 1538) [id number] 15:15:00 Test Item Value Reference Range Interpretation Comments POTASSIUM (BEAKER) (test code = 3.4 meq/L 3.5-5.1 L 379) [id number] 15:15:00 Test Item Value Reference Range Interpretation Comments MAGNESIUM (BEAKER) (test code = 2.1 mg/dL 1.6-2.6 627) CT, [id number] 12:38:00FINAL REPORT CT abdomen with and without [...] MDReport Verified Date/Time: 09/29/2018 12:38:07 Reading Location: [address] Consult Reading Room POCT-GLUCOSE [id number] 11:49:00 Test Item Value Reference Range Interpretation Comments POC-GLUCOSE METER 83 mg/dL 70-[address] [facility] 6720 ([facility]) (test code = [facility] [address] 1538) [id number] 10:49:00 Test Item Value Reference Range Interpretation Comments TRIGLYCERIDES ([employer]) 71 mg/dL Speci men slightly (test code = 540) hemolyzed TRIGLYCERIDE REFERENCE RANGELow Risk <150Borderline Risk 150-199High Risk 200-499Very High Risk>=[id number] 05:09:00 Test Item Value Reference Range Interpretation Comments LIPASE (Alignable) (test code = 749) > U/L 8-78 H [id number] 04:35:00 Test Item Value Reference Range Interpretation Comments MAGNESIUM (Alignable) 1.6 mg/dL 1.6-2.6 Specimen slightly (test code = 627) hemolyzed [id number] 04:35:00 Test Item Value Reference Range Interpretation Comments PHOSPHORUS (BEAKER) 3.2 mg/dL 2.3-4.7 Specimen slightly (test code = 604) hemolyzed COMPREHENSIVE METABOLIC [id number] 04:35:00 Test Item Value Reference Range Interpretation [...] NOT APPLICABLE FOR DIALYSIS PATIEN TS. PROTHROMBIN [id number] 04:34:00 Test Item Value Reference Range Interpretation [...]
--- NOTE | 2020-06-07 15:49 | RAD REPORT ---
EXAM DESCRIPTION: CT - Head Brain Wo Cont - 06/07/2020 3:38 pm CLINICAL HISTORY: MENTAL STATUS CHANGE, hallucinations, transient alteration of awareness COMPARISON: HEAD BRAIN W O CONTRAST dated 08/13/2015 TECHNIQUE: Axial 5 mm thick images of the head were obtained without IV contrast. All CT scans are performed using dose optimization technique as appropriate and may include automated exposure control or mA/KV adjustment according to patient size. FINDINGS: No intracranial hemorrhage, mass, edema or shift of mid-line structures. No acute infarcti on changes seen. No abnormal extra-axial fluid collections. Ventricles are normal. Mastoid air cells and visualized portions of the paranasal sinuses are clear. No acute bony findings. No significant change from comparison. IMPRESSION: Negative non-contrast CT head examination.
[2020-06-07] MEDS ORDERED: NA CHLORIDE 0.9% 1,000 ML ONE (16:55)
[2020-06-07] MEDS ORDERED: FOLIC ACID 1 MG, MULTIVITAMINS INJ 10 ML, THIAMINE HCL 100 MG in NA CHLORIDE 0.9% 1,000 ML IV ONE (17:00)
[2020-06-07 17:02] LABS: Absolute Lymphocytes (CBC) 0.9 K/uL (0.7-4.9); Basophils % 0.4 % (0-1.3); Hematocrit 43.2 % (39.6-49.0); Lymphocytes % 12.9 % (15.3-44.8); MPV 8.5 fL (7.6-11.3); RBC Red Blood Cell Count 5.14 M/uL (4.33-5.43)
[2020-06-07 17:05] LABS: Protime INR 1.07
[2020-06-07 17:43] LABS: ALT/SGPT 140 U/L (12-78); AST/SGOT 49 U/L (15-37); Albumin 4.3 g/dL (3.4-5.0); Alkaline Phosphatase 124 U/L (45-117); BUN Blood Urea Nitrogen 9 mg/dL (7-18); Bicarbonate 26 mmol/L (21-32); Bilirubin Direct 0.2 mg/dL (0-0.2); Bilirubin Total 0.7 mg/dL (0.2-1.0); Glucose Level 92 mg/dL (74-106); Lipase 62 U/L (73-393); Potassium 3.4 mmol/L (3.5-5.1); Protein, Total 8.2 g/dL (6.4-8.2); Sodium Level 139 mmol/L (136-145)
--- NOTE | 2020-06-07 19:12 | EDPHYS ---
Physician Documentation [facility] Name: Jonathan Gutierrez Age: 34 yrs Sex: Male : 1985 Arrival Date: 06/07/2020 Time: 14:37 Bed 20 Private MD: ED Physician Prateek Lacey HPI: 06/07 17:17 This 34 yrs old Male presents to ER via Ambulatory with complaints of jr8 Hallucinations. 17:17 Patient with known drug and alcohol abuse in the past. Stated that he relapsed about 3 jr8 weeks ago and since then has been back on alcohol and meth. Stated that a few days ago started to hear voices and have hallucinations which he has never had before. Last alcoholic beverage was a week ago. Stated that last drug use was one day ago. Denies any other symptoms at this time . Severity of symptoms: At their worst the symptoms were moderate in the emergency department the symptoms are unchanged. It is unknown whether or not the patient has had similar symptoms in the past. The patient has not recently seen a physician. Historical: - Allergies: 14:46 No Known Allergies; iw - Home Meds: 14:46 None [Active]; iw - PMHx: 14:46 ADD/ADHD; etoh abuse; Hypertension; liver "spot"; Pancreatitis; iw - PSHx: 14:48 None; iw - Immunization history:: Adult Immunizations not up to date. - Social history:: Smoking status: Patient reports the use of cigarette tobacco products, smokes one-half pack cigarettes per day. ROS: 17:17 Eyes: Negative for injury, pain, redness, and discharge, ENT: Negative for injury, jr8 pain, and discharge, Neck: Negative for injury, pain, and swelling, Cardiovascular: Negative for chest pain, palpitations, and edema, Respiratory: Negative for shortness of breath, cough, wheezing, and pleuritic chest pain, Abdomen/GI: Negative for abdominal pain, nausea, vomiting, diarrhea, and constipation, Back: Negative for injury and pain, MS/Extremity: Negative for injury and deformity, Skin: Negative for injury, rash, and discoloration. 17:17 Neuro: Positive for altered mental status. 17:17 Psych: Positive for drug dependence, alcohol dependence, auditory hallucinations, visual hallucinations. Exam: 17:17 Eyes: Pupils equal round and reactive to light, extra-ocular motions intact. Lids and jr8 lashes normal. Conjunctiva and sclera are non-icteric and not injected. Cornea within normal limits. Periorbital areas with no swelling, redness, or edema. ENT: Nares patent. No nasal discharge, no septal abnormalities noted. Tympanic membranes are normal and external auditory canals are clear. Oropharynx with no redness, swelling, or masses, exudates, or evidence of obstruction, uvula midline. Mucous membranes moist. Neck: Trachea midline, no thyromegaly or masses palpated, and no cervical lymphadenopathy. Supple, full range of motion without nuchal rigidity, or vertebral point tenderness. No Meningismus. Respiratory: Lungs have equal breath sounds bilaterally, clear to auscultation and percussion. No rales, rhonchi or wheezes noted. No increased work of breathing, no retractions or nasal flaring. Abdomen/GI: Soft, non-tender, with normal bowel sounds. No distension or tympany. No guarding or rebound. No evidence of tenderness throughout. Back: No spinal tenderness. No costovertebral tenderness. Full range of motion. Skin: Warm, dry with normal turgor. Normal color with no rashes, no lesions, and no evidence of cellulitis. MS/ Extremity: Pulses equal, no cyanosis. Neurovascular intact. Full, normal range of motion. Neuro: Awake and alert, GCS 15, oriented to person, place, time, and situation. Cranial nerves II-XII grossly intact. Motor strength 5/5 in all extremities. Sensory grossly intact. Cerebellar exam normal. Normal gait. 17:17 Cardiovascular: Rate: tachycardic, Rhythm: regular, Pulses: Pulses are 2+ in right radial artery and left radial artery. Heart sounds: normal, no S3 or S4, no murmur, no rub, no gallop, Edema: is not appreciated, JVD: is not appreciated. 17:17 Psych: Behavior/mood is cooperative, Affect is calm, Oriented to person, place, time, Patient has no thoughts/intents to harm self or others. Judgement / Insight is normal. Memory is normal. Delusions/hallucinations Not present at this time. Vital Signs: 14:43 BP 148 / 110; Pulse 122; Resp 18; Temp 97.6(TE); Pulse Ox 100% on R/A; iw 16:30 BP 141 / 99; Pulse 91; Resp 16; Pulse Ox 99% on R/A; ph 17:30 BP 139 / 87; Pulse 86; Resp 18; Pulse Ox 99% on R/A; ph 18:28 BP 137 / 98; Pulse 87; Resp 16; Pulse Ox 99% on R/A; mt 19:30 BP 147 / 89; Pulse 89; Resp 19 S; Pulse Ox 99% on R/A; ca1 20:35 BP 159 / 88; Pulse 81; Resp 16 S; Pulse Ox 99% on R/A; ca1 MDM: 14:51 Patient medically screened. beck 19:04 Data reviewed: vital signs, nurses notes, lab test result(s), EKG, radiologic studies, [facility] CT scan. Data interpreted: Pulse oximetry: on room air is 99 %. Interpretation: normal. Counseling: I had a detailed discussion with the patient and/or guardian regarding: the historical points, exam findings, and any diagnostic results supporting the discharge/admit diagnosis, lab results, radiology results, the need for outpatient follow up, a family practitioner, a psychiatrist, to return to the emergency department if symptoms worsen or persist or if there are any questions or concerns that arise at home. Response to treatment: the patient's symptoms have markedly improved after treatment, patient is well hydrated. ED course: Patient stated that overall he is feeling better. No hallucinations while in ED. BP improved and HR normalized. Will d/c home to f/u with PCP for continued rehab . 06/07 15:14 Order name: Acetaminophen; Complete Time: 17:46 06/07 15:14 Order name: Basic Metabolic Panel; Complete Time: 17:46 [facility] 06/07 15:14 Order name: CBC with Diff; Complete Time: 17:20 06/07 15:14 Order name: ETOH Level; Complete Time: 17:44 [facility] 06/07 15:14 Order name: Hepatic Function; Complete Time: 17:46 06/07 15:14 Order name: PT-INR; Complete Time: 17:20 06/07 15:14 Order name: Ptt, Activated; Complete Time: 17:20 [facility] 06/07 15:14 Order name: Salicylate; Complete Time: 17:44 06/07 15:14 Order name: Urine Drug Screen; Complete Time: 20:18 06/07 15:14 Order name: Lipase; Complete Time: 17:46 06/07 15:14 Order name: CT Head Brain wo Cont; Complete Time: 16:31 06/07 15:19 Order name: AMMONIA; Complete Time: 17:20 06/07 19:08 Order name: Urine Dipstick--Ancillary (enter results); Complete Time: 20:28 tt3 06/07 15:14 Order name: EKG; Complete Time: 15:15 06/07 15:14 Order name: EKG - Nurse/Tech; Complete Time: 16:57 06/07 15:14 Order name: IV Saline Lock; Complete Time: 16:57 06/07 15:14 Order name: Labs collected and sent; Complete Time: 16:57 06/07 15:14 Order name: Urine Dipstick-Ancillary (obtain specimen); Complete Time: 16:57 Administered Medications: 17:00 Drug: Banana Bag - (NS 0.9% 1000 ml, foLIC Acid 1 mg, Thiamine 100 mg, Multivitamin 1 ph amp) Route: IV; Rate: calculated rate; Site: right forearm; 20:30 Follow up: IV Status: Completed infusion; IV Intake: 1000ml ca1 17:00 Drug: NS 0.9% 1000 ml Route: IV; Rate: 1000 ml; Site: right forearm; ph 20:30 Follow up: Response: No adverse reaction; IV Status: Completed infusion; IV Intake: ca1 1000ml Disposition: 06/08 09:26 Co-signature as Attending Physician, Prateek Lacey MD I agree with the assessment and [facility] plan of care. Disposition: 06/07/20 19:11 Discharged to Home. Impression: Drug abuse counseling and surveillance, Dehydration. - Condition is Stable. - Discharge Instructions: Finding Treatment for Addiction, Dehydration, Adult. - Medication Reconciliation Form, Thank You Letter, Antibiotic Education, Prescription Opioid Use form. - Follow up: Private Physician; When: 2 - 3 days; Reason: Recheck today's complaints, Continuance of care, Re-evaluation by your physician. - Problem is new. - Symptoms have improved. Signatures: Dispatcher [employer] Prateek Carias MD MD cha Williams, Irene, RN RN Gordon Pratt PA PA jr8 Shelley Davis RN RN ph Acob, Kathy RN RN ca1 Corrections: (The following items were deleted from the chart) 06/07 20:37 19:11 06/07/2020 19:11 Discharged to Home. Impression: Drug abuse counseling and ca1 surveillance; Dehydration. Condition is Stable. Forms are Medication Reconciliation Form, Thank You Letter, Antibiotic Education, Prescription Opioid Use. Follow up: Private Physician; When: 2 - 3 days; Reason: Recheck today's complaints, Continuance of care, Re-evaluation by your physician. Problem is new. Symptoms have improved. jr8
--- NOTE | 2020-06-07 19:12 | ER ---
Nurse's Notes [facility] Name: Jonathan Gutierrez Age: 34 yrs Sex: Male : 1985 Arrival Date: 06/07/2020 Time: 14:37 Bed 20 Private MD: Diagnosis: Drug abuse counseling and surveillance;Dehydration Presentation: 06/07 14:43 Chief complaint: Patient states: has hx of pancreatitis and is having hallucinations, iw thought he was going for a job and started walking down the road, pt states it goes so far that he convinces himself of things that didn't happen, is also having abd pain and small amount of blood in stool. Coronavirus screen:. Ebola Screen: Patient negative for fever greater than or equal to 101.5 degrees Fahrenheit, and additional compatible Ebola Virus Disease symptoms Patient denies exposure to infectious person. Patient denies travel to an Ebola-affected area in the 21 days before illness onset. No symptoms or risks identified at this time. Initial Sepsis Screen: Does the patient meet any 2 criteria? No. Patient's initial sepsis screen is negative. Does the patient have a suspected source of infection? No. Patient's initial sepsis screen is negative. Risk Assessment: Do you want to hurt yourself or someone else? Patient reports no desire to harm self or others. Onset of symptoms was June 04, 2020. 14:43 Method Of Arrival: Ambulatory iw 14:43 Acuity: NEO 3 iw 14:47 Note has hx of ETOH abuse but has not had alcohol for a month, denies drug use. iw Historical: - Allergies: 14:46 No Known Allergies; iw - Home Meds: 14:46 None [Active]; iw - PMHx: 14:46 ADD/ADHD; etoh abuse; Hypertension; liver "spot"; Pancreatitis; iw - PSHx: 14:48 None; iw - Immunization history:: Adult Immunizations not up to date. - Social history:: Smoking status: Patient reports the use of cigarette tobacco products, smokes one-half pack cigarettes per day. Screenin:36 Abuse screen: Denies threats or abuse. Denies injuries from another. Nutritional ph screening: No deficits noted. Tuberculosis screening: No symptoms or risk factors identified. Fall Risk None identified. Assessment: 15:34 General: Appears in no apparent distress. comfortable, slender, Behavior is ph cooperative, anxious, Denies fever, feeling ill. Pain: Complains of pain in left upper quadrant. Neuro: Level of Consciousness is awake, alert, obeys commands, Oriented to person, place, situation. Cardiovascular: Capillary refill < 3 seconds in bilateral fingers Patient's skin is warm and dry. Respiratory: Airway is patent Respiratory effort is even, unlabored, Respiratory pattern is regular, symmetrical. GI: Reports upper abdominal pain. Derm: Skin is intact, Skin is pink, warm \\T\\ dry. Musculoskeletal: Circulation, motion, and sensation intact. Range of motion: intact in all extremities. 16:30 Reassessment: Patient appears in no apparent distress at this time. No changes from previously documented assessment. Patient and/or family updated on plan of care and expected duration. Pain level reassessed. 17:30 Reassessment: Patient appears in no apparent distress at this time. Patient and/or ph family updated on plan of care and expected duration. Pain level reassessed. Patient is alert, oriented x 3, equal unlabored respirations, skin warm/dry/pink. Pt given sandwich and chips, tolerating well. 18:30 Reassessment: Patient appears in no apparent distress at this time. Patient and/or ph family updated on plan of care and expected duration. Pain level reassessed. Patient is alert, oriented x 3, equal unlabored respirations, skin warm/dry/pink. 19:25 Reassessment: Patient appears in no apparent distress at this time. Patient and/or ph family updated on plan of care and expected duration. Pain level reassessed. Patient is alert, oriented x 3, equal unlabored respirations, skin warm/dry/pink. D/C pending completion of IV fluids. 20:35 Reassessment: Patient appears in no apparent distress at this time. Patient is alert, ca1 oriented x 3, equal unlabored respirations, skin warm/dry/pink. Reassessment:. Vital Signs: 14:43 BP 148 / 110; Pulse 122; Resp 18; Temp 97.6(TE); Pulse Ox 100% on R/A; iw 16:30 BP 141 / 99; Pulse 91; Resp 16; Pulse Ox 99% on R/A; ph 17:30 BP 139 / 87; Pulse 86; Resp 18; Pulse Ox 99% on R/A; ph 18:28 BP 137 / 98; Pulse 87; Resp 16; Pulse Ox 99% on R/A; mt 19:30 BP 147 / 89; Pulse 89; Resp 19 S; Pulse Ox 99% on R/A; ca1 20:35 BP 159 / 88; Pulse 81; Resp 16 S; Pulse Ox 99% on R/A; ca1 ED Course: 14:37 Patient arrived in ED. ag5 14:45 Triage completed. iw 14:47 Arm band placed on. iw 14:51 Gordon Pratt PA is PHCP. jr8 14:51 Prateek Lacey MD is Attending Physician. jr8 15:35 Patient has correct armband on for positive identification. Bed in low position. Call ph light in reach. Side rails up X 1. Pulse ox on. NIBP on. Door closed. Warm blanket given. 15:39 CT Head Brain wo Cont In Process Unspecified. EDMS 16:01 Shelley Davis, RN is Primary Nurse. ph 16:15 Missed attempt(s): 22 gauge in right antecubital area. Bleeding controlled, band aid ph applied, catheter tip intact. Missed attempt(s): 22 gauge in right antecubital area. Bleeding controlled, band aid applied, catheter tip intact. 16:45 Inserted saline lock: 20 gauge in right forearm, using aseptic technique. bp 19:26 No provider procedures requiring assistance completed. ph 20:36 IV discontinued, intact, bleeding controlled, No redness/swelling at site. Pressure ca1 dressing applied. Administered Medications: 17:00 Drug: Banana Bag - (NS 0.9% 1000 ml, foLIC Acid 1 mg, Thiamine 100 mg, Multivitamin 1 ph amp) Route: IV; Rate: calculated rate; Site: right forearm; 20:30 Follow up: IV Status: Completed infusion; IV Intake: 1000ml ca1 17:00 Drug: NS 0.9% 1000 ml Route: IV; Rate: 1000 ml; Site: right forearm; ph 20:30 Follow up: Response: No adverse reaction; IV Status: Completed infusion; IV Intake: ca1 1000ml Intake: 20:30 IV: 1000ml; Total: 1000ml. ca1 20:30 IV: 1000ml; Total: 2000ml. ca1 Outcome: 19:11 Discharge ordered by . jr8 20:36 Discharged to home ambulatory. ca1 20:36 Condition: stable 20:36 Discharge instructions given to patient, Instructed on discharge instructions, follow up and referral plans. Demonstrated understanding of instructions, follow-up care. 20:37 Patient left the ED. ca1 Signatures: Dispatcher [employer] Alma Delia Allen RN RN iw Gordon Pratt PA PA jr8 Shelley Davis RN RN Reyes, [facility] Alphonso Piedra RN RN AcKathy pham RN RN ca1 Caitlyn, Emerson ag5 Corrections: (The following items were deleted from the chart) 14:48 14:47 Note has hx of ETOH abuse but has not had alcohol for a month, denies drug iw 14:51 14:43 BP 148 / 110; Pulse 122bpm; Resp 18bpm; Pulse Ox 100% RA; iw iw
[2020-06-07 19:54] LABS: Barbiturates NEGATIVE (NEGATIVE); Benzodiazepines NEGATIVE (NEGATIVE); Cocaine NEGATIVE (NEGATIVE); METHAMPHETAM POSITIVE (NEGATIVE); Methadone NEGATIVE (NEGATIVE); Opiates NEGATIVE (NEGATIVE); Phencyclidine NEGATIVE (NEGATIVE); THC Cannibis NEGATIVE (NEGATIVE)
[2020-06-07 20:26] LABS: Urine Blood 1+ (NEG); Urine Glucose NEGATIVE (NEG); Urine Protein 1+ (NEG); Urine Specific Gravity 1.025 (1.005-1.030)
[2020-06-08 00:52] VITALS: TEMP 97.6
[2020-06-08 00:57] VITALS: O2SAT 99
[2020-06-08 01:04] VITALS: BP 159/88
--- NOTE | 2020-06-08 18:14 | EKG ---
Test Date: 2020-06-07 Test Time: 15:22:13 Arboriculture Teacher: BONIFACIO MEASUREMENT RESULTS: Intervals: Rate: 108 MT: 144 QRSD: 88 QT: 330 QTc: 442 [place]: P: 38 MT: 144 QRS: 74 T: 67 INTERPRETIVE STATEMENTS: Sinus tachycardia Cannot rule out Anterior infarct, age undetermined Abnormal ECG Compared to ECG 03/25/2020 15:23:45 Myocardial infarct finding now present Atrial abnormality no longer present ST (T wave) deviation no longer present Possible ischemia no longer present Electronically Signed On 06-08-20 18:11:30 HYDROLOGY TECHNICIAN by Jared Gutiérrez
== END 2020-06-07 20:37 | disposition home or self-care (01) ==
LOC: ER 14:36
DX: E86.0 Dehydration (principal); Z71.51 Drug abuse counseling and surveillance of drug abuser; F10.20 Alcohol dependence, uncomplicated; F17.210 Nicotine dependence, cigarettes, uncomplicated; I10 Essential (primary) hypertension
CPT/HCPCS: 36415; 70450; 80048; 80076; 80307; 80320; 80329; 81003; 82140; 83690; 85025; 85610; 85730; 93005; 96365; 96366; 99284; J3411; J7030

== ENCOUNTER 2021-04-09 23:38 | Emergency (ER) | payer SELFPAY ==
[2021-04-10 00:57] LABS: Protime INR 1.16
[2021-04-10 01:01] LABS: Absolute Lymphocytes (CBC) 0.8 K/uL (0.7-4.9); Basophils % 0.5 % (0-1.3); Hematocrit 44.3 % (39.6-49.0); Lymphocytes % 17.2 % (15.3-44.8); RBC Red Blood Cell Count 4.89 M/uL (4.33-5.43)
[2021-04-10] MEDS ORDERED: PROMETHAZINE INJ 25 MG/ML AMP ONE (01:14)
[2021-04-10 01:15] LABS: Albumin 3.9 g/dL (3.4-5.0); Alkaline Phosphatase 118 U/L (45-117); BUN Blood Urea Nitrogen 7 mg/dL (7-18); Bicarbonate 23 mmol/L (21-32); Bilirubin Direct 0.1 mg/dL (0-0.2); Bilirubin Total 0.5 mg/dL (0.2-1.0); Glucose Level 103 mg/dL (74-106); Lipase 161 U/L (73-393); Potassium 3.1 mmol/L (3.5-5.1); Sodium Level 145 mmol/L (136-145)
[2021-04-10] MEDS ORDERED: NA CHLORIDE 0.9% 1,000 ML ONE (01:16)
[2021-04-10] MEDS ORDERED: MORPHINE 4 MG/ML SYR ONE ×2 (01:16→02:47)
[2021-04-10] MEDS ORDERED: PANTOPRAZOLE 40 MG INJ ONE (01:16)
[2021-04-10 01:22] LABS: AST/SGOT 826 U/L (15-37)
[2021-04-10 01:23] LABS: ALT/SGPT 566 U/L (12-78)
--- NOTE | 2021-04-10 03:34 | EDPHYS ---
Physician Documentation [facility] Name: Jonathan Gutierrez Age: 35 yrs Sex: Male : 1985 Arrival Date: 04/09/2021 Time: 23:43 Bed 23 Private MD: ED Physician Trenton Lubin HPI: 04/10 00:00 This 35 yrs old Male presents to ER via Unassigned with complaints of rn Vomiting - Blood, Chronic Pancreatitis. 00:00 The patient presents to the emergency department with nausea, vomiting, abdominal pain, rn of the left upper quadrant, described as achy, crampy, and does not radiate. Onset: The symptoms/episode began/occurred 4 day(s) ago. Possible causes: flare up of bowel problem, Pancreatitis. The symptoms are aggravated by nothing. The symptoms are alleviated by nothing. 00:00 Associated signs and symptoms: Pertinent positives: abdominal pain, nausea, vomiting, rn Pertinent negatives: fever. Severity of symptoms: At their worst the symptoms were moderate in the emergency department the symptoms are unchanged. The patient has experienced similar episodes in the past. The patient has not recently seen a physician. Patient reports 4 days of left-sided abdominal pain and back pain, similar to previous episodes of pancreatitis. Patient with chronic alcoholic pancreatitis, states stopped taking all of his medication including replacement enzymes months ago because he was doing okay. Denies any fever. Does report dark emesis and dark stool. No fever. Patient denies any recent alcohol or drug use. No trauma.. Historical: - Allergies: 00:08 No Known Allergies; lp1 - Home Meds: 00:08 None [Active]; lp1 - PMHx: 00:08 ADD/ADHD; etoh abuse; Hypertension; liver "spot"; Pancreatitis; lp1 - PSHx: 00:08 Cholecystectomy; lp1 - Immunization history:: Adult Immunizations up to date. - Social history:: Smoking status: . - Family history:: not pertinent. - Hospitalizations: : No recent hospitalization is reported. ROS: 00:00 Constitutional: Negative for fever, chills, and weight loss, Eyes: Negative for injury, rn pain, redness, and discharge, Neck: Negative for injury, pain, and swelling, Cardiovascular: Negative for chest pain, palpitations, and edema, Respiratory: Negative for shortness of breath, cough, wheezing, and pleuritic chest pain, Abdomen/GI: Positive for abdominal pain/nausea/vomiting Back: Negative for injury and pain, : Negative for injury, bleeding, discharge, and swelling, MS/Extremity: Negative for injury and deformity, Skin: Negative for injury, rash, and discoloration, Neuro: Negative for headache, weakness, numbness, tingling, and seizure. 00:00 All other systems are negative. Exam: 00:00 Constitutional: This is a well developed, well nourished patient who is awake, alert, rn and in no acute distress. Ambulatory to room without difficulty or assistance Head/Face: Normocephalic, atraumatic. Eyes: Pupils equal round and reactive to light, extra-ocular motions intact. Lids and lashes normal. Conjunctiva and sclera are non-icteric and not injected. Cornea within normal limits. Periorbital areas with no swelling, redness, or edema. Cardiovascular: Tachycardic, regular. No pulse deficits. Respiratory: Speaking full sentences, unlabored. No increased work of breathing, no retractions or nasal flaring. Abdomen/GI: Soft, mild left upper quadrant tenderness, no peritoneal signs, no distention Skin: Warm, dry MS/ Extremity: Pulses equal, no cyanosis. Neurovascular intact. Full, normal range of motion. Equal circumference. Neuro: Awake and alert, GCS 15, oriented to person, place, time, and situation. Cranial nerves II-XII grossly intact. Motor strength 5/5 in all extremities. Sensory grossly intact. Cerebellar exam normal. Normal gait. Vital Signs: 00:00 BP 130 / 90; Pulse 108; Resp 16; Temp 98.7; Pulse Ox 100% ; wr 00:06 BP 116 / 84; Pulse 127; Resp 16; Temp 98.7(O); Pulse Ox 100% on R/A; Weight 72.57 kg lp1 (R); Height 5 ft. 11 in. (180.34 cm); Pain 8/10; 02:30 BP 116 / 84; Pulse 106; Resp 18; Temp 96.; Pulse Ox 100% ; wr 02:35 Pain 5/10; wr 00:06 Body Mass Index 22.32 (72.57 kg, 180.34 cm) lp1 MDM: 04/09 23:49 Patient medically screened. rn 04/10 03:32 Differential diagnosis: Nonspecific abd pain, gastritis, pancreatitis, viral rn gastroenteritis, gastroenteritis. Differential diagnosis: Nonspecific abd pain. Data reviewed: vital signs, nurses notes, old medical records, lab test result(s), radiologic studies, and as a result, I will discharge patient. Counseling: I had a detailed discussion with the patient and/or guardian regarding: the historical points, exam findings, and any diagnostic results supporting the discharge/admit diagnosis, lab results, radiology results, the need for outpatient follow up, to return to the emergency department if symptoms worsen or persist or if there are any questions or concerns that arise at home. Response to treatment: the patient's symptoms have markedly improved after treatment, and as a result, I will discharge patient. Special discussion: Based on the patient's Hx, exam, and Dx evaluation, there is no indication for emergent surgery or inpatient Tx. It is understood by the patient/guardian that if the Sx's persist or worsen they need to return immediately for re-evaluation. I discussed with the patient/guardian in detail that at this point there is no indication for admission to the hospital. It is understood, however, that if the symptoms persist or worsen the patient needs to return immediately for re-evaluation. Based on the history and exam findings, there is no indication for further emergent testing or inpatient evaluation. I discussed with the patient/guardian the need to see the hoe runner for further evaluation of the symptoms. ED course: Normal H\\T\\H, CT no acute findings other than possibly gastritis on top of chronic pancreatitis. Lipase normal but has chronic pancreatitis. Will DC home as feels much better and needs to get back on his medication that he stopped taking. Also recommend GI follow-up.. 04/09 23:59 Order name: Basic Metabolic Panel; Complete Time: 04/09 23:59 Order name: CBC with Diff; Complete Time: :04/09 23:59 Order name: Hepatic Function; Complete Time: 04/09 23:59 Order name: Lipase; Complete Time: 04/10 00:00 Order name: ETOH Level; Complete Time: 04/10 00:00 Order name: PT-INR; Complete Time: :04/09 23:59 Order name: CT Abd/Pelvis - IV Contrast Only 04/10 00:00 Order name: Ptt, Activated; Complete Time: 01:09 rn 04/09 23:59 Order name: IV Saline Lock; Complete Time: 00:45 rn 04/09 23:59 Order name: Labs collected and sent; Complete Time: 00:45 rn Administered Medications: 04/09 23:50 Drug: NS 0.9% 1000 ml Route: IV; Rate: 1000 ml; Site: right hand; 23:50 Drug: morphine 4 mg Route: IVP; Site: right hand; wr 04/10 02:35 Follow up: Pain 5/10 Adult wr 04/09 23:55 Drug: Phenergan (promethazine) 12.5 mg Route: IVP; Site: right hand; wr 04/10 01:02 Drug: ProTONIX (pantoprazole) 40 mg Route: IVP; Site: right hand; 02:28 Drug: morphine 4 mg Route: IVP; Site: right forearm; Disposition Summary: 04/10/21 03:33 Discharge Ordered Location: Home rn Problem: an acute exacerbation rn Symptoms: have improved rn Condition: Stable rn Diagnosis - Other chronic pancreatitis rn - Gastritis, unspecified rn Followup: rn - With: Leopoldo Walsh MD - When: 2 - 3 days - Reason: Recheck today's complaints, Re-evaluation by your physician Discharge Instructions: - Discharge Summary Sheet rn - Gastritis, Adult rn - Chronic Pancreatitis rn Forms: - Medication Reconciliation Form rn - Thank You Letter rn - Antibiotic 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
--- NOTE | 2021-04-10 03:34 | ER ---
Nurse's Notes [facility] Name: Jonathan Gutierrez Age: 35 yrs Sex: Male : 1985 Arrival Date: 04/09/2021 Time: 23:43 Bed 23 Private MD: Diagnosis: Other chronic pancreatitis;Gastritis, unspecified Presentation: 04/10 00:01 Chief complaint: Patient states: Reports LLQ and left flank pain x 3 days with black lp1 stool and vomiting; reports hx of chronic pancreatitis with similar symptoms; reports unable to sleep x 3 days related to pain. 00:06 Coronavirus screen: At this time, the client does not indicate any symptoms associated lp1 with coronavirus-19. Ebola Screen: No symptoms or risks identified at this time. Initial Sepsis Screen: Does the patient meet any 2 criteria? No. Patient's initial sepsis screen is negative. Does the patient have a suspected source of infection? No. Patient's initial sepsis screen is negative. Risk Assessment: Do you want to hurt yourself or someone else? Patient reports no desire to harm self or others. Onset of symptoms was April 10, 2021. 00:06 Method Of Arrival: Ambulatory lp1 00:06 Acuity: NEO 3 lp1 Triage Assessment: 02:06 General: Appears distressed, well groomed, well developed, Behavior is calm, wr cooperative. Pain: Complains of pain in back. GI: Reports nausea. Historical: - Allergies: 00:08 No Known Allergies; lp1 - Home Meds: 00:08 None [Active]; lp1 - PMHx: 00:08 ADD/ADHD; etoh abuse; Hypertension; liver "spot"; Pancreatitis; lp1 - PSHx: 00:08 Cholecystectomy; lp1 - Immunization history:: Adult Immunizations up to date. - Social history:: Smoking status: . - Family history:: not pertinent. - Hospitalizations: : No recent hospitalization is reported. Screenin:08 Abuse screen: Denies threats or abuse. Denies injuries from another. Nutritional lp1 screening: No deficits noted. Tuberculosis screening: No symptoms or risk factors identified. Fall Risk None identified. Assessment: 02:32 Reassessment: No changes from previously documented assessment. wr 02:33 Pain: Pain at worst was 8 out of 10 on a pain scale. wr Vital Signs: 00:00 BP 130 / 90; Pulse 108; Resp 16; Temp 98.7; Pulse Ox 100% ; wr 00:06 BP 116 / 84; Pulse 127; Resp 16; Temp 98.7(O); Pulse Ox 100% on R/A; Weight 72.57 kg lp1 (R); Height 5 ft. 11 in. (180.34 cm); Pain 8/10; 02:30 BP 116 / 84; Pulse 106; Resp 18; Temp 96.; Pulse Ox 100% ; wr 02:35 Pain 5/10; wr 00:06 Body Mass Index 22.32 (72.57 kg, 180.34 cm) lp1 ED Course: 04/09 23:43 Patient arrived in ED. 23:48 Trenton Lubin MD is Attending Physician. rn 04/10 00:07 Triage completed. lp1 00:07 Arm band placed on. lp1 00:42 PT-INR Sent. wr 00:42 Ptt, Activated Sent. wr 00:42 ETOH Level Sent. wr 00:45 Basic Metabolic Panel Sent. wr 00:45 CBC with Diff Sent. wr 00:45 Hepatic Function Sent. wr 02:56 CT Abd/Pelvis - IV Contrast Only In Process Unspecified. EDMS 03:33 Leopoldo Walsh MD is Referral Physician. rn Administered Medications: 04/09 23:50 Drug: NS 0.9% 1000 ml Route: IV; Rate: 1000 ml; Site: right hand; wr 23:50 Drug: morphine 4 mg Route: IVP; Site: right hand; wr 04/10 02:35 Follow up: Pain 5/10 Adult wr 04/09 23:55 Drug: Phenergan (promethazine) 12.5 mg Route: IVP; Site: right hand; wr 04/10 01:02 Drug: ProTONIX (pantoprazole) 40 mg Route: IVP; Site: right hand; wr 02:28 Drug: morphine 4 mg Route: IVP; Site: right forearm; Outcome: 03:33 Discharge ordered by . rn 04:37 Patient left the ED. wr Signatures: Dispatcher [employer] EDMS Trenton Lubin MD MD rn Pena, Laura, RN RN lp1 Coco Blackwood [place] Corrections: (The following items were deleted from the chart) 00:07 00:01 Chief complaint: Patient states: Reports lp1 lp1
[2021-04-10 04:42] VITALS: O2SAT 100
[2021-04-10 04:43] VITALS: BP 116/84
[2021-04-10 04:44] VITALS: TEMP 96
--- NOTE | 2021-04-11 11:14 | RAD REPORT ---
EXAM DESCRIPTION: CT - Abdomen Pelvis W Contrast - 04/10/2021 8:20 am CLINICAL HISTORY: Hx of chronic pancreatitis; Abd pain TECHNIQUE: Axial computed tomography images of the abdomen and pelvis with intravenous contrast. S agittal and coronal reformatted images were created and reviewed. This CT exam was performed using one or more of the following dose reduction techniques: automated exposure control, adjustment of t he mA and/or kV according to patient size, and/or use of iterative reconstruction technique. COMPARISON: 03/25/2020 FINDINGS: Lung bases: Unremarkable. No mass. No consolidation. ABDOMEN: Liver: The liver is enlarged and mildly diffusely low in density compatible with steatosis. Gallbladder and bile ducts: Prior cholecystectomy. Interval development of intrahepatic and extra hepatic biliary dilatation. The common bile duct measures 12 mm in maximum diameter. Pancreas: Proximal pancreatic parenchymal calcifications, new from the prior. No appreciable peripa ncreatic inflammation. No ductal dilation. Spleen: The spleen is mildly enlarged measuring 13.8 cm. Adrenals: Unremarkable. No mass. Kidneys and ureters: There are a couple small calculi within the right renal collecting system. No hydronephrosis. Stomach and bowel: The stomach appears somewhat thickened. No obstruction. PELVIS: Appendix: Normal caliber appendix. No findings to suggest acute appendicitis. Bladder: The urinary bladder is partially decompressed. Reproductive: Unremarkable as visualized. ABDOMEN and PELVIS: Intraperitoneal space: Unremarkable. No free air. No significant fluid collection. Bones/joints: No acute fracture. No dislocation. Soft tissues: Unremarkable. Vasculature: Mild atherosclerotic disease. Upper abdominal varices. 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 Subtle intraluminal linear low density at t he confluence and within the superior mesenteric vein. The main portal and splenic veins are patent. No abdominal aortic aneurysm. Lymph nodes: Unremarkable. No enlarged lymph nodes. IMPRESSION: 1. Interval development of pancreatic parenchymal calcifications compatible with chron ic pancreatitis. No appreciable peripancreatic inflammation. 2. The stomach appears somewhat thickened and may reflect mild nonspecific gastritis. 3. Upper abdominal varices. Attenuation of the superior mesenteric vein just distal to the portal v enous confluence. Subtle intraluminal linear low density at the confluence and within the superior me senteric vein. The possibility of nonocclusive thrombus may be considered. 4. Other findings as above. Electronically signed by: Jaida Alcantara MD 04/10/2021 3:17 AM CDT Due to temporary technical issues with the PACS/Fluency reporting system, reports are being signed by the in house radiologist without review as a courtesy to ensure prompt reporting. The interpreting r adiologist is fully responsible for the content of the report.
== END 2021-04-10 04:37 | disposition home or self-care (01) ==
LOC: ER 23:38
DX: K86.1 Other chronic pancreatitis (principal); K29.70 Gastritis, unspecified, without bleeding; I10 Essential (primary) hypertension
CPT/HCPCS: 36415; 74177; 80048; 80076; 80320; 83690; 85025; 85610; 85730; 99283; C9113; J2550; J7030; Q9967